=== PATIENT | male | born 1950 | race Caucasian/White ===

== ENCOUNTER 2016-12-02 16:31 | Inpatient (IN) | payer MEDICARE, BC ==
[~2016-12-02] VITALS: Ht 170.2 cm; Wt 84.8 kg
[~2016-12-02 16:31] MED LIST: ASPI-664 PO; BENA40TA41 PO; GABA-528 PO; LANT3I SC; MECL25TA2 PO; METF500T4 PO; NOVO3I SC; TERA5CAP3 PO; [UNRECOGNIZED DRUG - OTHER] TOP
[2016-12-02] MEDS ORDERED: CEFTRIAXONE 1 GM INJ IM ONE (18:00)
[2016-12-02 18:21] LABS: ADD SCAN DIFF NO
[2016-12-02 18:24] LABS: BASOPHILS % 0.5 % (0.0-2.0); EOSINOPHILS % 0.2 % (0.0-7.0); HEMATOCRIT 36.7 % (42.0-52.0); HEMOGLOBIN 12.6 g/dl (14.0-18.0); LYMPHOCYTES # 0.9 10^3/ul (0.8-2.9); MEAN CORPUSCULAR HEMOGLOBIN 32.6 pg (29.0-33.0); MEAN CORPUSCULAR HGB CONC 34.3 g/dl (32.0-37.0); MEAN CORPUSCULAR VOLUME 94.8 fl (82.0-101.0); MEAN PLATELET VOLUME 10.6 fl (7.4-10.4); MONOCYTE # 0.6 10^3/ul (0.3-0.9); MONOCYTES % 9.4 % (0.0-11.0); NEUTROPHIL # 4.7 10^3/ul (1.6-7.5); NEUTROPHILS % 75.6 % (39.0-77.0); PLATELET COUNT 180 10^3/UL (140-415); RED BLOOD COUNT 3.87 10^6/ul (4.70-6.10); RED CELL DISTRIBUTION WIDTH 12.3 % (11.5-14.5); WHITE BLOOD COUNT 6.3 10^3/ul (4.8-10.8)
[2016-12-02 18:37] LABS: ALBUMIN 4.1 g/dl (3.3-4.9); ALBUMIN/GLOBULIN RATIO 1.13; BILIRUBIN,INDIRECT 0.2 mg/dl (0-1.1); BILIRUBIN,TOTAL 0.2 mg/dl (0.2-1.3); CALCIUM 9.2 mg/dl (8.4-10.2); CREATININE 0.62 mg/dl (0.61-1.24); POTASSIUM 4.4 mmol/L (3.5-5.1); TOTAL PROTEIN 7.7 g/dl (6.1-8.1)
[2016-12-02] MEDS ORDERED: INSULIN LISPRO 100 UNIT/ML VIAL SC STA (19:13)
--- NOTE | 2016-12-02 19:28 | RADRPT ---
PROCEDURE: XR Left Foot. CLINICAL INDICATION: Fall with infection. TECHNIQUE: AP, lateral and oblique views of the left foot was obtained. The images were reviewed on a PACS workstation. COMPARISON: None. FINDINGS: There are vascular calcifications in the anterior posterior tibial arteries. There is soft tissue s welling of the foot. There is a plantar spur off of the left os calcaneus. There is no evidence of gas gangrene for osteomyelitis. There is soft tissue swelling of the foot and ankle. IMPRESSION: 1. Soft tissue swelling of the foot and ankle suspicious for a cellulitis. Other etiologies must be excluded. 2. Monckenberg vascular calcifications. 3. No radiographic evidence of gas gangrene or osteomyelitis. 4. Plantar spur of the left os calcaneus. RPTAT:AAJJ Physician Carolyn Date Time Electronically viewed and signed by Physician Carolyn on 12/02/2016 19:28 YARED/
[2016-12-02] MEDS ORDERED: SOD CHLORIDE 0.9% 1,000 ML IV ONE ×2 (19:30)
[2016-12-02] MEDS ORDERED: VANCOMYCIN 1 GM (PMX) 250 ML IVPB SCH (19:30)
[2016-12-02] MEDS ORDERED: CLINDAMYCIN 900 MG/D5W (PMX) 50 ML IVPB SCH (19:30)
--- NOTE | 2016-12-02 19:53 | ERA ---
ER Documentation Chief Complaint Date/Time DATE: 12/02/16 TIME: 19:48 Chief Complaint right toe pain s/p fall 1 week ago (TRESSA BUSTAMANTE NP) HPI 66-year-old male with history of diabetes using insulin complaining of pain in the left big toe 1 week. Patient stated that he felt a week ago, and bruised his left big toe. He is able to bear weight on the left foot. He noticed a "blister" on the bottom of his left big toe after the fall. His left foot has been red and painful since then. He went to PCP, and was given Augmentin for antibiotics. His symptom has not improved on Augmentin. CBC done 3 days ago showed elevated WBC at 13.7. He was sent here by PCP for further evaluation. Denies fever or chills. (TRESSA BUSTAMANTE NP) ROS All systems reviewed and are negative except as per history of present illness. (TRESSA BUSTAMANTE NP) Medications Home Meds Active Scripts Metformin* (Glucophage*) 500 Mg Tab, 500 MG PO BID WITH MEALS, #60 TAB Prov:RONAK ANDREA NP 11/26/14 Insulin Glargine* (Lantus*) 100 Unit/Ml Soln, 20 UNIT SC DAILY for 30 Days, EA Prov:RONAK ANDREA NP 11/26/14 Insulin Aspart* (Novolog Insulin Pen*) 100 Unit/Ml Soln, 30 UNIT SC WITH MEALS for 30 Days, EA Prov:RONAK ANDREA NP 11/26/14 Meclizine Hcl* (Antivert*) 25 Mg Tab, 25 MG PO TID Y for dizziness, #10 Prov:RONAK ANDREA NP 11/26/14 Aspirin* (Aspirin* EC) 81 Mg Tabec, 81 MG PO DAILY for 30 Days Prov:RONAK ANDREA NP 11/26/14 Reported Medications [[id number]] No Conflict Check, 0.5 TSP TOP Q6 Y for PRN 11/24/14 Gabapentin* (Gabapentin*) 800 Mg Tablet, 800 MG PO TID, TAB 11/24/14 Terazosin Hcl* (Terazosin Hcl*) 5 Mg Capsule, 5 MG PO HS, CAP 11/24/14 Benazepril Hcl* (Benazepril Hcl*) 40 Mg Tablet, 40 MG PO DAILY, TAB 11/24/14 Allergies Allergies: Coded Allergies: No Known Allergy (Unverified , 12/02/16) PMhx/Soc History of Surgery: No Anesthesia Reaction: No Hx Neurological Disorder: Yes (neuropathy = both hands and feet) Hx Respiratory Disorders: No Hx Cardiac Disorders: Yes (Htn) Hx Psychiatric Problems: No Hx Miscellaneous Medical Probl: Yes (DM, HTN, Hypokalemia) Hx Substance Use: No Hx Tobacco Use: No Smoking Status: Unknown if ever smoked (TRESSA BUSTAMANTE NP) Physical Exam Vitals Vital Signs Date Time Temp Pulse Resp B/P Pulse Ox O2 Delivery O2 Flow Rate FiO2 12/02/16 20:14 97.8 80 16 145/80 100 Room Air 12/02/16 16:57 98.0 98 20 143/65 98 (DAMION ALVAREZ DO) Physical Exam General impression: Well-developed, well-nourished. Alert, oriented, in no acute distress Head: Normocephalic, atraumatic. Eyes: PERRL, EOM normal. Sclerae are normal. Conjunctiva not injected. Neck: Supple, nontender. No lymphadenopathy. No nuchal rigidity. Respiration: Normal respiratory effort. Lungs clear to auscultate bilaterally. No wheezes, rales or rhonchi. Cardiovascular: Regular rate and rhythm. No murmurs or extra heart sounds. Abdomen: Abdomen normal to inspection. Nontender. No masses or organomegaly. Bowel sounds normal. Back: Normal to inspection. No midline spine tenderness. No CVA tenderness. Extremities: Left foot erythematous and warm to touch, tender. The erythema is especially pronounced over the left big toe. There is a open wound noted at the ventral aspect the left big toe. Decreased range of motion of the left big toe. Neuro: Mental status normal, speech normal. SOLUTIONS DEVELOPER grossly intact. Decreased sensation noted on the left foot. Skin: Normal turgor. No rash or lesions. Psych: Normal mood and affect. (TRESSA BUSTAMANTE NP) Result Diagram: 12/02/16 17512/02/161752 Results 24 hrs Laboratory Tests Test 12/02/16 17:53 12/02/16 17:55 White Blood Count 6.310^3/ul Red Blood Count 3.8710^6/ul Hemoglobin 12.6g/dl Hematocrit 36.7% Mean Corpuscular Volume 94.8fl Mean Corpuscular Hemoglobin 32.6pg Mean Corpuscular Hemoglobin Concent 34.3g/dl Red Cell Distribution Width 12.3% Platelet Count 65274^3/UL Mean Platelet Volume 10.6fl Neutrophils % 75.6% Lymphocytes % 14.0% Monocytes % 9.4% Eosinophils % 0.2% Basophils % 0.5% Nucleated Red Blood Cells % 0.0/100WBC Neutrophils # 4.710^3/ul Lymphocytes # 0.910^3/ul Monocytes # 0.610^3/ul Eosinophils # 0.010^3/ul Basophils # 0.010^3/ul Nucleated Red Blood Cells # 0.010^3/ul Sodium Level 131mmol/L Potassium Level 4.4mmol/L Chloride Level 98mmol/L Carbon Dioxide Level 27mmol/L Anion Gap 10 Blood Urea Nitrogen 13mg/dl Creatinine 0.62mg/dl Glucose Level 436mg/dl Calcium Level 9.2mg/dl Total Bilirubin 0.2mg/dl Direct Bilirubin 0.00mg/dl Indirect Bilirubin 0.2mg/dl Aspartate Amino Transf (AST/SGOT) 17IU/L Alanine Aminotransferase (ALT/SGPT) 22IU/L Alkaline Phosphatase 90IU/L Total Protein 7.7g/dl Albumin 4.1g/dl Globulin 3.60g/dl Albumin/Globulin Ratio 1.13 Triglycerides Level 103mg/dl Cholesterol Level 157mg/dl LDL Cholesterol, Calculated 80mg/dl HDL Cholesterol 56mg/dl Cholesterol/HDL Ratio 2.8RATIO Current Medications Medications (Trade) Dose Ordered Sig/Devon Route PRN Reason Start Time Stop Time Status Last Admin Dose Admin Ceftriaxone Sodium 1 gm 1 gm ONCE ONCE IM 12/02/16 18:00 12/02/16 18:01 DC 12/02/16 17:49 Vancomycin HCl 250 ml @ 125 mls/hr ONCE IVPB 12/02/16 19:30 12/02/16 21:29 DC 12/02/16 20:33 Clindamycin HCl/ Dextrose (Cleocin 900 Mg/ D5W (Pmx)) 50 ml @ 50 mls/hr ONCE IVPB 12/02/16 19:30 12/02/16 20:29 DC 12/02/16 19:44 Insulin Human Lispro 6 unit 6 unit ONCE STAT SC 12/02/16 19:13 12/02/16 19:19 DC 12/02/16 19:40 Sodium Chloride 1,000 ml @ 1,000 mls/hr Q1H ONCE IV 12/02/16 19:30 12/02/16 20:29 DC 12/02/16 19:35 Sodium Chloride (NS) 1,000 ml @ 1,000 mls/hr Q1H ONCE IV 12/02/16 19:30 12/02/16 20:29 DC 12/02/16 19:35 Ondansetron HCl (Zofran Inj) 4 mg BRIDGE ORDER PRN IV NAUSEA AND/OR VOMITING 12/02/16 21:00 12/02/16 22:33 DC Acetaminophen (Tylenol Tab) 650 mg ER BRIDGE PRN PO MILD PAIN/FEVER 12/02/16 21:00 12/02/16 22:33 DC (DAMION ALVAERZ DO) Results 24 hrs PROCEDURE: XR Left Foot. CLINICAL INDICATION: Fall with infection. TECHNIQUE: AP, lateral and oblique views of the left foot was obtained. The images were reviewed on a PACS workstation. COMPARISON: None. FINDINGS: There are vascular calcifications in the anterior posterior tibial arteries. There is soft tissue swelling of the foot. There is a plantar spur off of the left os calcaneus. There is no evidence of gas gangrene for osteomyelitis. There is soft tissue swelling of the foot and ankle. IMPRESSION: 1. Soft tissue swelling of the foot and ankle suspicious for a cellulitis. Other etiologies must be excluded. 2. Monckenberg vascular calcifications. 3. No radiographic evidence of gas gangrene or osteomyelitis. 4. Plantar spur of the left os calcaneus. RPTAT:AAJJ Physician Carolyn Date Time Electronically viewed and signed by Physician Carolyn on 12/02/2016 19:28 JM/ CC: TRESSA BUSTAMANTE NP (TRESSA BUSTAMANTE NP) Procedures/MDM Pleasant 66-year-old male presented to ED with left foot pain 1 week. His exam findings are consistent with cellulitis of the left foot. He was given inappropriate antibiotics by his PCP. He had elevated white count of 13.7 3 days ago. Repeat CBC today showed normal white count of 6.8. His blood sugar is 465. 2 L of normal saline bolus, and 6 units of Humalog subcu given to the patient in the ED. Patient does not have any signs of necrotizing fasciitis. X -ray of the left foot was obtained, no sign off to myelitis on x-ray as read by radiologist. I feel patient can benefit from inpatient IV antibiotic therapy. My supervising physician Dr. Alvarez also examined the patient, and agrees with the plan. Patient is given vancomycin 1 g IV piggyback and clindamycin 900 mg IV piggyback while waiting for admission. (TRESSA BUSTAMANTE NP) I evaluated this patient along with the advance care provider. Does have a great toe diabetic ulcer with erythema and calor extending to the ankle joint. He is failed outpatient treatment noted prevent limb loss believe he needs IV antibiotics note stopped infection before to convince the bone. I spoke with Dr. Dumont wash will be admitting the patient to the medical surgical floor for further treatment.. (DAMION ALVAREZ DO) Departure Diagnosis: Primary Impression: Cellulitis of left foot Additional Impressions: Hyperglycemia Failure of outpatient treatment Condition: Stable TRESSA BUSTAMANTE NP Dec 02, 2016 19:53 DAMION ALVAREZ DO Dec 03, 2016 00:03
[2016-12-02] MEDS ORDERED: ACETAMINOPHEN 325 MG TAB PO PRN (21:00)
[2016-12-02] MEDS ORDERED: ONDANSETRON 4 MG INJ IV PRN (21:00)
[2016-12-02 21:14] VITALS: TEMP 97.8
[2016-12-02 21:52] VITALS: BP_SYST 136; BP_DIAS 67; BP_DIAS 68; PULSE 87; RESP 18; RESP 19
[2016-12-02 21:54] VITALS: Ht 170.2 cm; Wt 84.8 kg
[2016-12-02] MEDS ORDERED: VANCOMYCIN IV PER PHARMACY XX SCH (22:30)
[2016-12-02 22:41] LABS: CHOL/HDL RATIO 2.8 RATIO
[2016-12-02] MEDS ORDERED: GLUCOSE GEL 15 GRAM TUBE PO PRN ×2 (23:00)
[2016-12-02] MEDS ORDERED: GLUCOSE GEL 15 GRAM TUBE BUCCAL PRN (23:00)
[2016-12-02] MEDS ORDERED: GLUCAGON 1 MG INJ IM PRN (23:00)
[2016-12-02] MEDS ORDERED: hydrALAzine 20 MG INJ IV PRN (23:30)
[2016-12-02] MEDS ORDERED: ASPIRIN (EC) 81 MG TAB PO ONE (23:30)
[2016-12-02] MEDS ORDERED: INSULIN GLARGINE [LANtus] 3 ML PEN SC ONE (23:30)
[2016-12-02] MEDS ORDERED: GABAPENTIN 300 MG CAP PO ONE (23:30)
[2016-12-02] MEDS ORDERED: CEFTRIAXONE 1 GM/50 ML (PMX) 50 ML IVPB SCH (23:30)
[2016-12-02] MEDS ORDERED: PANTOPRAZOLE (EC) 40 MG TAB PO ONE (23:30)
[2016-12-02] MEDS ORDERED: TERAZOSIN 5 MG CAP PO ONE (23:30)
--- NOTE | 2016-12-02 23:30 | HP ---
Date/Time of Note Date/Time of Note DATE: 12/02/16 TIME: 22:52 Assessment/Plan VTE Prophylaxis VTE Prophylaxis Intervention: LMWH Assessment/Plan Assessment/Plan -Diabetic foot ulcer left foot -Cellulitis of left foot -Admit to [facility] floor -[facility] per pharmacy -C/S of wound drainage left foot -We will get infectious disease consult -A.m. labs, hemoglobin A1c, magnesium, phosphorous -Doppler ultrasound of the left foot -Elevate left foot all times -Foot cradle placement -History of [id number] -1800 suri low sodium low cholesterol diet -asthma educator consult -Dietary consult -History of hypertension -Resume benazepril HPI/ROS Admit Date/Time Admit Date/Time Dec 02, 2016 at 21:01 Hx of Present Illness left toe pain s/p fall 1 week ago HPI This is a 66-year-old male with history of insulin-dependent diabetes was admitted in the [facility] with complain of pain in the left big toe 1 week. Per patient he fell almost week ago, and bruised his left big toe. He also stated that he did not feel any pain right away . And he was still able to bear weight on the left foot to stand up and walk. Then he started noticing a "blister" on the bottom of his left big toe after the fall. He started feeling pain in his left foot ever since then. Patient was seen by his primary provider and was given Augmentin for his left foot infection and the outcome was not successful. Patient was sent to the [facility] when after having CBC- WBCs were elevated to 13.7. He was sent here by PCP for further evaluation. Denies fever or chills. During assessment patient denies any chest pain, shortness of breath, fever, chills, dizziness, palpitations, abdominal pain, nausea, vomiting, focal weakness. Denies any pain on left foot. Patient is admitted under Dr. Heredia for further evaluation and treatment ROS All systems reviewed and are negative except as per history of present illness. Medications Home Meds Active Scripts Metformin* (Glucophage*) 500 Mg Tab, 500 MG PO BID WITH MEALS, #60 TAB Prov:RONAK ANDREA AUTOMATIC PRINT DEVELOPER 11/26/14 Insulin Glargine* (Lantus*) 100 Unit/Ml Soln, 20 UNIT SC DAILY for 30 Days, EA Prov:RONAK ANDREA Milagros AUTOMATIC PRINT DEVELOPER 11/26/14 Insulin Aspart* (Novolog Insulin Pen*) 100 Unit/Ml Soln, 30 UNIT SC WITH MEALS for 30 Days, EA Prov:ZULLYRONAK Milagros AUTOMATIC PRINT DEVELOPER 11/26/14 Meclizine Hcl* (Antivert*) 25 Mg Tab, 25 MG PO TID Y for dizziness, #10 Prov:RONAK ANDREA AUTOMATIC PRINT DEVELOPER 11/26/14 Aspirin* (Aspirin* EC) 81 Mg Tabec, 81 MG PO DAILY for 30 Days Prov:RONAK ANDREA Milagros AUTOMATIC PRINT DEVELOPER 11/26/14 Reported Medications [[id number]] No Conflict Check, 0.5 TSP TOP Q6 Y for PRN 11/24/14 Gabapentin* (Gabapentin*) 800 Mg Tablet, 800 MG PO TID, TAB 11/24/14 Terazosin Hcl* (Terazosin Hcl*) 5 Mg Capsule, 5 MG PO HS, CAP 11/24/14 Benazepril Hcl* (Benazepril Hcl*) 40 Mg Tablet, 40 MG PO DAILY, TAB 11/24/14 Allergies Allergies: Coded Allergies: No Known Allergy (Unverified , 12/02/16) ROS Constitutional: no complaints Eyes: no complaints ENT: no complaints Respiratory: no complaints Cardiovascular: no complaints Gastrointestinal: no complaints Genitourinary: no complaints Musculoskeletal: bone/joint pain Skin: erythema Endocrine: other Lymphatic: no complaints Psychological: nl mood/affect Immunologic: no complaints PMH/Family/Social Past Medical History PMhx/Soc History of Surgery: No Anesthesia Reaction: No Hx Neurological Disorder: Yes (neuropathy = both hands and feet) Hx Respiratory Disorders: No Hx Cardiac Disorders: Yes (Htn) Hx Psychiatric Problems: No Hx Miscellaneous Medical Probl: Yes (DM, HTN, Hypokalemia) Hx Substance Use: No Hx Tobacco Use: No Smoking Status: Unknown if ever smoked Family History Significant Family History: heart disease, diabetes Social History Smoking Status: Former smoker Exam/Review of Systems Vital Signs Vitals Vital Signs Date Time Temp Pulse Resp B/P Pulse Ox O2 Delivery O2 Flow Rate FiO2 12/02/16 21:14 97.8 79 16 124/46 100 Room Air Exam Constitutional: alert, oriented, well developed Psych: no complaints Head: normocephalic Eyes: EOMI ENMT: nl external ears & nose Neck: non-tender Respiratory: clear to auscultation Cardiovascular: nl pulses Gastrointestinal: non-tender, soft Musculoskeletal: swelling Extremities: edema Neurological: nl mental status, nl speech Skin: other Lymph: nontender Labs Result Diagram: 12/02/16175212/02/161752 Medications Medications Current Medications Diagnostic Test (Pha) (Accu-Chek) 1 ea 02 XX ; Start 12/03/16 at 02:00 Ondansetron HCl (Zofran Inj) 4 mg Q6H PRN IV NAUSEA AND/OR VOMITING; Start at 22:30 Miscellaneous Information 1 ea NOTE XX ; Start 12/02/16 at 23:00 Glucose (Glutose) 15 gm Q15M PRN PO DECREASED GLUCOSE; Start 12/02/16 at 23:00 Glucose (Glutose) 22.5 gm Q15M PRN PO DECREASED GLUCOSE; Start 12/02/16 at 23: 00 Dextrose (D50w Syringe) 25 ml Q15M PRN IV DECREASED GLUCOSE; Start 12/02/16 at 23:00 Dextrose (D50w Syringe) 50 ml Q15M PRN IV DECREASED GLUCOSE; Start 12/02/16 at 23:00 Glucagon (Glucagen) 1 mg Q15M PRN IM DECREASED GLUCOSE; Start 12/02/16 at 23:00 Glucose 15 gm 15 gm Q15M PRN BUCCAL DECREASED GLUCOSE; Start 12/02/16 at 23:00 Vancomycin HCl/ Sodium Chloride (Vancocin/NS) 250 ml @ 83.333 mls/ hr Q12H IVPB ; Start 12/03/16 at 04:00 Aspirin (Halfprin) 81 mg DAILY PO ; Start 12/03/16 at 09:00 Benazepril HCl (Lotensin) 40 mg DAILY PO ; Start 12/03/16 at 09:00 Gabapentin (Neurontin) 800 mg TID PO ; Start 12/03/16 at 09:00 Insulin Glargine (Lantus) 20 unit DAILY SC ; Start 12/03/16 at 09:00 Meclizine HCl (Antivert) 25 mg TID PRN PO dizziness; Start 12/02/16 at 23:00 Terazosin HCl (Hytrin) 5 mg HS PO ; Start 12/03/16 at 21:00 YULIANA SIMMONS Dec 02, 2016 23:04
--- NOTE | 2016-12-03 00:43 | RADRPT ---
PROCEDURE: ULTRASOUND LEFT LOWER EXTREMITY VENOUS CLINICAL INDICATION: 66-year-old male with left lower extremity pain. TECHNIQUE: Multiple sonographic images of the left lower extremity deep venous system was obtained utilizing grayscale, color-flow, compressive sonography and doppler imaging with augmentation. The images were reviewed on a PACS workstation. COMPARISON: None. FINDINGS: There is normal compressibility and flow within the left common femoral, deep femoral, superficial f emoral, popliteal, posterior tibial and peroneal veins. IMPRESSION: No sonographic evidence for left lower extremity deep venous thrombosis. .Marlon Mena MD, MD Date Time Electronically viewed and signed by .Marlon Mena MD, MD on 12/03/2016 00:43 .Nayely/
[2016-12-03] MEDS: ACCU-CHEK XX SCH (01:13)
[2016-12-03] MEDS: VANCOMYCIN 1.25 GM in SOD CHLORIDE 0.9% 250 ML IVPB SCH ×2 (04:04→15:54)
[2016-12-03] MEDS: PANTOPRAZOLE (EC) 40 MG TAB PO SCH (06:31)
[2016-12-03 06:47] LABS: ADD SCAN DIFF NO
[2016-12-03 06:59] LABS: BASOPHILS % 0.4 % (0.0-2.0); EOSINOPHILS % 0.6 % (0.0-7.0); HEMATOCRIT 32.5 % (42.0-52.0); HEMOGLOBIN 10.6 g/dl (14.0-18.0); LYMPHOCYTES # 1.2 10^3/ul (0.8-2.9); LYMPHOCYTES % 24.8 % (15.0-51.0); MEAN CORPUSCULAR HEMOGLOBIN 31.5 pg (29.0-33.0); MEAN CORPUSCULAR HGB CONC 32.6 g/dl (32.0-37.0); MEAN CORPUSCULAR VOLUME 96.4 fl (82.0-101.0); MEAN PLATELET VOLUME 10.9 fl (7.4-10.4); MONOCYTE # 0.5 10^3/ul (0.3-0.9); MONOCYTES % 9.9 % (0.0-11.0); NEUTROPHIL # 3.1 10^3/ul (1.6-7.5); NEUTROPHILS % 63.9 % (39.0-77.0); PLATELET COUNT 141 10^3/UL (140-415); RED BLOOD COUNT 3.37 10^6/ul (4.70-6.10); RED CELL DISTRIBUTION WIDTH 12.5 % (11.5-14.5); WHITE BLOOD COUNT 4.9 10^3/ul (4.8-10.8)
[2016-12-03] MEDS ORDERED: INSULIN ASPART [NOVOLOG] 3 ML PEN SC SCH (07:35)
[2016-12-03 07:38] LABS: IRON 49 ug/dl (35-150)
[2016-12-03 07:47] LABS: TOTAL IRON BINDING CAPACITY 214 ug/dl (241-421)
[2016-12-03 07:52] LABS: CALCIUM 8.5 mg/dl (8.4-10.2); CREATININE 0.58 mg/dl (0.61-1.24); PHOSPHORUS 3.8 mg/dl (2.5-4.9)
[2016-12-03] MEDS: GABAPENTIN 400 MG CAP PO SCH ×3 (08:37→21:34)
[2016-12-03] MEDS: metFORMIN 500 MG TAB PO SCH ×3 (08:37→18:07)
[2016-12-03] MEDS: ASPIRIN (EC) 81 MG TAB PO SCH (08:38)
[2016-12-03] MEDS: DOCUSATE SODIUM 100 MG CAP PO SCH ×3 (08:38→21:34)
[2016-12-03] MEDS: ENOXAPARIN 30 MG/0.3 ML SYG SC SCH (08:42)
[2016-12-03 08:44] VITALS: BP 124/58; RESP 17
[2016-12-03] MEDS: INSULIN ASPART [NOVOLOG] 3 ML PEN SC SCH ×6 (08:50→22:22)
[2016-12-03] MEDS ORDERED: BENAZEPRIL 40 MG TAB PO SCH (09:00)
[2016-12-03] MEDS ORDERED: INSULIN GLARGINE [LANtus] 3 ML PEN SC SCH (09:00)
--- NOTE | 2016-12-03 12:54 | PN ---
Date/Time of Note Date/Time of Note DATE: 12/03/16 TIME: 12:36 Assessment/Plan VTE Prophylaxis VTE Prophylaxis Intervention: SCD's Lines/Catheters IV [facility] Saline Lock Urinary Cath still in place: No Assessment/Plan Chief Complaint/Hosp Course Assessment/Plan - Diabetic foot ulcer of the left foot, Dr Lin is asked to see pt is podiatry consultation. - Cellulitis of left foot, continue antibiotics, Dr. Wilson is asked to see patient in infection disease consultation. - IDDM, continue metformin and Lantus and pre-meal NovoLog. - Aortic stenosis - Diastolic dysfunction congestive heart failure with preserved ejection fraction of 60%. - Hypertension, continue benazepril. Further recommendations based on clinical course. Plan of care discussed with Dr. Heredia. Problems: Subjective 24 Hr Interval Summary Free Text/Dictation Patient's complains of left lower extremity ulcer pain, denies any chest pain, denies shortness of breath. Exam/Review of Systems Vital Signs Vitals Vital Signs Date Time Temp Pulse Resp B/P Pulse Ox O2 Delivery O2 Flow Rate FiO2 12/03/16 08:44 98.1 83 17 124/58 96 12/02/16 21:52 Room Air Intake and Output 12/02/16 12/02/16 12/03/16 15:00 23:00 07:00 Intake Total 250 ml 450 ml Balance 250 ml 450 ml Exam Constitutional: alert, oriented Psych: no complaints Head: atraumatic, normocephalic Eyes: nl conjunctiva ENMT: nl external ears & nose Neck: non-tender, supple Respiratory: clear to auscultation, normal air movement Cardiovascular: nl pulses, regular rate and rhythm, systolic murmur Gastrointestinal: non-tender, soft Genitourinary - Male: nl penis Musculoskeletal: nl extremities to inspection Extremities: normal pulses Neurological: MACHINE SHOP SPECIALIST II-XII intact Skin: nl turgor Results Result Diagram: 12/03/16 0515 12/03/16 0515 Results 24 hrs Laboratory Tests Test 12/02/16 17:53 12/02/16 17:55 12/02/16 22:26 12/03/16 00:30 White Blood Count 6.3 Red Blood Count 3.87 L Hemoglobin 12.6 L Hematocrit 36.7 L Mean Corpuscular Volume 94.8 Mean Corpuscular Hemoglobin 32.6 Mean Corpuscular Hemoglobin Concent 34.3 Red Cell Distribution Width 12.3 Platelet Count 180 Mean Platelet Volume 10.6 H Neutrophils % 75.6 Lymphocytes % 14.0 L Monocytes % 9.4 Eosinophils % 0.2 Basophils % 0.5 Nucleated Red Blood Cells % 0.0 Neutrophils # 4.7 Lymphocytes # 0.9 Monocytes # 0.6 Eosinophils # 0.0 Basophils # 0.0 Nucleated Red Blood Cells # 0.0 Sodium Level 131 L Potassium Level 4.4 Chloride Level 98 Carbon Dioxide Level 27 Anion Gap 10 Blood Urea Nitrogen 13 Creatinine 0.62 Glucose Level 436 *H Calcium Level 9.2 Total Bilirubin 0.2 Direct Bilirubin 0.00 Indirect Bilirubin 0.2 Aspartate Amino Transf (AST/SGOT) 17 Alanine Aminotransferase (ALT/SGPT) 22 Alkaline Phosphatase 90 Total Protein 7.7 Albumin 4.1 Globulin 3.60 H Albumin/Globulin Ratio 1.13 Triglycerides Level 103 Cholesterol Level 157 LDL Cholesterol, Calculated 80 HDL Cholesterol 56 Cholesterol/HDL Ratio 2.8 Bedside Glucose 218 221 H Test 12/03/16 05:15 12/03/16 08:08 12/03/16 10:45 12/03/16 11:58 White Blood Count 4.9 # Red Blood Count 3.37 L Hemoglobin 10.6 L Hematocrit 32.5 L Mean Corpuscular Volume 96.4 Mean Corpuscular Hemoglobin 31.5 Mean Corpuscular Hemoglobin Concent 32.6 Red Cell Distribution Width 12.5 Platelet Count 141 # Mean Platelet Volume 10.9 H Neutrophils % 63.9 Lymphocytes % 24.8 Monocytes % 9.9 Eosinophils % 0.6 Basophils % 0.4 Nucleated Red Blood Cells % 0.0 Neutrophils # 3.1 Lymphocytes # 1.2 Monocytes # 0.5 Eosinophils # 0.0 Basophils # 0.0 Nucleated Red Blood Cells # 0.0 Sodium Level 136 Potassium Level 4.0 Chloride Level 106 Carbon Dioxide Level 26 Anion Gap 8 Blood Urea Nitrogen 9 Creatinine 0.58 L Glucose Level 188 # Hemoglobin A1c 8.7 H Calcium Level 8.5 Phosphorus Level 3.8 Magnesium Level 2.0 Iron Level 49 Total Iron Binding Capacity 214 L Percent Iron Saturation 23 Bedside Glucose 176 194 161 Medications Medications Current Medications Diagnostic Test (Pha) (Accu-Chek) 1 ea 02 XX ; Start 12/03/16 at 02:00 Ondansetron HCl (Zofran Inj) 4 mg Q6H PRN IV NAUSEA AND/OR VOMITING; Start at 22:30 Miscellaneous Information 1 ea NOTE XX ; Start 12/02/16 at 23:00 Glucose (Glutose) 15 gm Q15M PRN PO DECREASED GLUCOSE; Start 12/02/16 at 23:00 Glucose (Glutose) 22.5 gm Q15M PRN PO DECREASED GLUCOSE; Start 12/02/16 at 23: 00 Dextrose (D50w Syringe) 25 ml Q15M PRN IV DECREASED GLUCOSE; Start 12/02/16 at 23:00 Dextrose (D50w Syringe) 50 ml Q15M PRN IV DECREASED GLUCOSE; Start 12/02/16 at 23:00 Glucagon (Glucagen) 1 mg Q15M PRN IM DECREASED GLUCOSE; Start 12/02/16 at 23:00 Glucose 15 gm 15 gm Q15M PRN BUCCAL DECREASED GLUCOSE; Start 12/02/16 at 23:00 Vancomycin HCl/ Sodium Chloride (Vancocin/NS) 250 ml @ 83.333 mls/ hr Q12H IVPB Last administered on 12/03/16 04:04; Admin Dose 83.333 MLS/HR; Start at 04:00 Aspirin (Halfprin) 81 mg DAILY PO Last administered on 12/03/16 08:38; Admin Dose 81 MG; Start 12/03/16 at 09:00 Benazepril HCl (Lotensin) 40 mg DAILY PO Last administered on 12/03/16 08:38; Admin Dose 40 MG; Start 12/03/16 at 09:00 Gabapentin (Neurontin) 800 mg TID PO Last administered on 12/03/16 12:13; Admin Dose 800 MG; Start 12/03/16 at 09:00 Meclizine HCl (Antivert) 25 mg TID PRN PO dizziness; Start 12/02/16 at 23:00 Terazosin HCl (Hytrin) 5 mg HS PO ; Start 12/03/16 at 21:00 Enoxaparin Sodium (Lovenox) 30 mg DAILY SC Last administered on 12/03/16 08:42 ; Admin Dose 30 MG; Start 12/03/16 at 09:00 Insulin Glargine (Lantus) 20 unit DAILY SC ; Start 12/03/16 at 20:00 Acetaminophen/ Hydrocodone Bitart ([place] (5/325)) 1 tab Q6H PRN PO PAIN LEVEL 4 -7; Start 12/02/16 at 23:30 Acetaminophen (Tylenol Tab) 650 mg Q6H PRN PO PAIN AND OR ELEVATED TEMP; Start 12/02/16 at 23:30 Docusate Sodium 100 mg 100 mg BID PO ; Start 12/03/16 at 09:00 Ceftriaxone Sodium (Rocephin) 50 ml @ 100 mls/hr Q24H IVPB Last administered on 12/03/16 00:21; Admin Dose 100 MLS/HR; Start 12/02/16 at 23:30 Hydralazine HCl (Apresoline) 10 mg Q6H PRN IV ELEVATED SYSTOLIC BP; Start 12/02 at 23:30 Pantoprazole (Protonix Tab) 40 mg DAILY@06 PO Last administered on 12/03/16 06 :31; Admin Dose 40 MG; Start 12/03/16 at 06:00 Zolpidem Tartrate (Ambien) 5 mg HS PRN PO INSOMNIA; Start 12/02/16 at 23:30 KIMBERLY NOYOLA Dec 03, 2016 12:46
[2016-12-03 13:10] VITALS: BP 110/68; PULSE 71
[2016-12-03 16:03] VITALS: BP 128/58; PULSE 70
--- NOTE | 2016-12-03 19:03 | CONS ---
Date/Time of Note Date/Time of Note DATE: 12/03/16 TIME: 19:02 Assessment/Plan Assessment/Plan Chief Complaint/Hosp Course patient seen and examined. ordered entered. full note to follow consider mri Problems: Consultation Date/Type/Reason Admit Date/Time Dec 02, 2016 at 21:01 Initial Consult Date Exam/Review of Systems Vital Signs Vitals Vital Signs Date Time Temp Pulse Resp B/P Pulse Ox O2 Delivery O2 Flow Rate FiO2 12/03/16 16:03 70 128/58 12/03/16 08:44 98.1 17 96 12/02/16 21:52 Room Air Intake and Output 12/02/16 12/02/16 12/03/16 15:00 23:00 07:00 Intake Total 250 ml 450 ml Balance 250 ml 450 ml Results Result Diagram: 12/03/16 0515 12/03/16 0515 Results 24 hrs Laboratory Tests Test 12/02/16 22:26 12/03/16 00:30 12/03/16 05:15 12/03/16 08:08 Bedside Glucose 218 221 H 176 White Blood Count 4.9 # Red Blood Count 3.37 L Hemoglobin 10.6 L Hematocrit 32.5 L Mean Corpuscular Volume 96.4 Mean Corpuscular Hemoglobin 31.5 Mean Corpuscular Hemoglobin Concent 32.6 Red Cell Distribution Width 12.5 Platelet Count 141 # Mean Platelet Volume 10.9 H Neutrophils % 63.9 Lymphocytes % 24.8 Monocytes % 9.9 Eosinophils % 0.6 Basophils % 0.4 Nucleated Red Blood Cells % 0.0 Neutrophils # 3.1 Lymphocytes # 1.2 Monocytes # 0.5 Eosinophils # 0.0 Basophils # 0.0 Nucleated Red Blood Cells # 0.0 Sodium Level 136 Potassium Level 4.0 Chloride Level 106 Carbon Dioxide Level 26 Anion Gap 8 Blood Urea Nitrogen 9 Creatinine 0.58 L Glucose Level 188 # Hemoglobin A1c 8.7 H Calcium Level 8.5 Phosphorus Level 3.8 Magnesium Level 2.0 Iron Level 49 Total Iron Binding Capacity 214 L Percent Iron Saturation 23 Test 12/03/16 10:45 12/03/16 11:58 12/03/16 12:42 12/03/16 16:17 Bedside Glucose 194 161 154 86 Test 12/03/16 17:16 12/03/16 17:41 Bedside Glucose 194 216 Medications Medications Current Medications Diagnostic Test (Pha) (Accu-Chek) 1 ea 02 XX ; Start 12/03/16 at 02:00 Ondansetron HCl (Zofran Inj) 4 mg Q6H PRN IV NAUSEA AND/OR VOMITING; Start at 22:30 Miscellaneous Information 1 ea NOTE XX ; Start 12/02/16 at 23:00 Glucose (Glutose) 15 gm Q15M PRN PO DECREASED GLUCOSE; Start 12/02/16 at 23:00 Glucose (Glutose) 22.5 gm Q15M PRN PO DECREASED GLUCOSE; Start 12/02/16 at 23: 00 Dextrose (D50w Syringe) 25 ml Q15M PRN IV DECREASED GLUCOSE; Start 12/02/16 at 23:00 Dextrose (D50w Syringe) 50 ml Q15M PRN IV DECREASED GLUCOSE; Start 12/02/16 at 23:00 Glucagon (Glucagen) 1 mg Q15M PRN IM DECREASED GLUCOSE; Start 12/02/16 at 23:00 Glucose 15 gm 15 gm Q15M PRN BUCCAL DECREASED GLUCOSE; Start 12/02/16 at 23:00 Vancomycin HCl/ Sodium Chloride (Vancocin/NS) 250 ml @ 83.333 mls/ hr Q12H IVPB Last administered on 12/03/16 15:54; Admin Dose 83.333 MLS/HR; Start at 04:00 Aspirin (Halfprin) 81 mg DAILY PO Last administered on 12/03/16 08:38; Admin Dose 81 MG; Start 12/03/16 at 09:00 Gabapentin (Neurontin) 800 mg TID PO Last administered on 12/03/16 12:13; Admin Dose 800 MG; Start 12/03/16 at 09:00 Meclizine HCl (Antivert) 25 mg TID PRN PO dizziness; Start 12/02/16 at 23:00 Terazosin HCl (Hytrin) 5 mg HS PO ; Start 12/03/16 at 21:00 Enoxaparin Sodium (Lovenox) 30 mg DAILY SC Last administered on 12/03/16 08:42 ; Admin Dose 30 MG; Start 12/03/16 at 09:00 Insulin Glargine (Lantus) 20 unit DAILY SC ; Start 12/03/16 at 20:00 Acetaminophen/ Hydrocodone Bitart ([place] (5/325)) 1 tab Q6H PRN PO PAIN LEVEL 4 -7; Start 12/02/16 at 23:30 Acetaminophen (Tylenol Tab) 650 mg Q6H PRN PO PAIN AND OR ELEVATED TEMP; Start 12/02/16 at 23:30 Docusate Sodium 100 mg 100 mg BID PO ; Start 12/03/16 at 09:00 Ceftriaxone Sodium (Rocephin) 50 ml @ 100 mls/hr Q24H IVPB Last administered on 12/03/16 00:21; Admin Dose 100 MLS/HR; Start 12/02/16 at 23:30 Hydralazine HCl (Apresoline) 10 mg Q6H PRN IV ELEVATED SYSTOLIC BP; Start 12/02 at 23:30 Pantoprazole (Protonix Tab) 40 mg DAILY@06 PO Last administered on 12/03/16 06 :31; Admin Dose 40 MG; Start 12/03/16 at 06:00 Zolpidem Tartrate (Ambien) 5 mg HS PRN PO INSOMNIA; Start 12/02/16 at 23:30 Miscellaneous Information (*Rx Drug Level Order Reminder*) VANCOMYCIN TROUGH LEVEL... ONCE ONCE XX ; Start 12/04/16 at 03:00; Stop 12/04/16 at 03:01 Benazepril HCl (Lotensin) 10 mg DAILY PO ; Start 12/04/16 at 09:00 NIKHIL RAM MD Dec 03, 2016 19:02
[2016-12-03] MEDS: TERAZOSIN 5 MG CAP PO SCH (21:00)
[2016-12-03 21:25] VITALS: BP 107/51; RESP 18
[2016-12-03] MEDS: PIPER-TAZO 3.375 GM IV (PMX) 100 ML IVPB SCH (21:34)
[2016-12-03] MEDS: INSULIN GLARGINE [LANtus] 3 ML PEN SC SCH (22:22)
[2016-12-04] MEDS: PIPER-TAZO 3.375 GM IV (PMX) 100 ML IVPB SCH ×6 (00:53→20:51)
[2016-12-04] MEDS: ACCU-CHEK XX SCH (02:00)
[2016-12-04] MEDS: VANCOMYCIN 1.25 GM in SOD CHLORIDE 0.9% 250 ML IVPB SCH ×2 (05:02→15:47)
[2016-12-04] MEDS: PANTOPRAZOLE (EC) 40 MG TAB PO SCH (06:04)
[2016-12-04 06:09] LABS: ADD SCAN DIFF NO
[2016-12-04 06:30] LABS: BASOPHILS % 0.3 % (0.0-2.0); EOSINOPHILS % 0.5 % (0.0-7.0); HEMATOCRIT 32.1 % (42.0-52.0); HEMOGLOBIN 10.2 g/dl (14.0-18.0); LYMPHOCYTES # 1.4 10^3/ul (0.8-2.9); LYMPHOCYTES % 21.6 % (15.0-51.0); MEAN CORPUSCULAR HEMOGLOBIN 31.3 pg (29.0-33.0); MEAN CORPUSCULAR HGB CONC 31.8 g/dl (32.0-37.0); MEAN CORPUSCULAR VOLUME 98.5 fl (82.0-101.0); MEAN PLATELET VOLUME 11.3 fl (7.4-10.4); MONOCYTE # 0.6 10^3/ul (0.3-0.9); MONOCYTES % 8.9 % (0.0-11.0); NEUTROPHIL # 4.5 10^3/ul (1.6-7.5); NEUTROPHILS % 68.1 % (39.0-77.0); PLATELET COUNT 163 10^3/UL (140-415); RED BLOOD COUNT 3.26 10^6/ul (4.70-6.10); RED CELL DISTRIBUTION WIDTH 12.6 % (11.5-14.5); WHITE BLOOD COUNT 6.6 10^3/ul (4.8-10.8)
[2016-12-04 06:31] LABS: POTASSIUM 3.8 mmol/L (3.5-5.1)
[2016-12-04 06:34] LABS: CREATININE 0.91 mg/dl (0.61-1.24)
[2016-12-04 06:35] LABS: CALCIUM 8.8 mg/dl (8.4-10.2)
[2016-12-04 07:40] VITALS: BP 123/58; RESP 16
--- NOTE | 2016-12-04 08:24 | CONS ---
Date/Time of Note Date/Time of Note DATE: 12/04/16 TIME: 08:21 Assessment/Plan Assessment/Plan Chief Complaint/Hosp Course 1. DM foot infection 2. DM 3. failed Augmentin R: consider mri hiv screen vanco/zosyn podiatry eval esr procalc mrsa nasal screen bcxs Problems: Consultation Date/Type/Reason Admit Date/Time Dec 02, 2016 at 21:01 Date of Consultation: Dec 03, 2016 Reason for Consultation dm foot infection Hx of Present Illness 66 yo male with hx with pmh of DM with worsening Left first toe swelling, erythema and pain over last week. He has had increasing difficulty ambulating. He failed to improve with Augmentin. He was admitted and started on Vanco denies all except pain left first toe Eyes: no complaints ENT: no complaints Respiratory: no complaints Cardiovascular: no complaints Gastrointestinal: no complaints Genitourinary: no complaints Musculoskeletal: bone/joint pain Skin: erythema Lymphatic: no complaints Psychological: no complaints Immunologic: no complaints Social History Smoking Status: Former smoker Exam/Review of Systems Vital Signs Vitals Vital Signs Date Time Temp Pulse Resp B/P Pulse Ox O2 Delivery O2 Flow Rate FiO2 12/04/16 07:40 98.2 72 16 123/58 99 12/02/16 21:52 Room Air Intake and Output 12/03/16 12/03/16 12/04/16 14:59 22:59 06:59 Intake Total 1230 ml 700 ml Balance 1230 ml 700 ml Exam Constitutional: alert, oriented, well developed Psych: nl mood/affect, no complaints Head: atraumatic, normocephalic Eyes: EOMI, PERRL, nl conjunctiva, nl lids, nl sclera ENMT: nl external ears & nose, nl lips & teeth, nl nasal mucosa & septum Respiratory: clear to auscultation, normal air movement Cardiovascular: nl pulses, regular rate and rhythm Gastrointestinal: nl liver, spleen, non-tender, soft Neurological: DINING ROOM MANAGER II-XII intact, nl mental status, nl speech, nl strength Results Result Diagram: 12/04/162 12/04/16441 Results 24 hrs Laboratory Tests Test 12/03/16 10:45 12/03/16 11:58 12/03/16 12:42 12/03/16 16:17 Bedside Glucose 194 161 154 86 Test 12/03/16 17:16 12/03/16 17:41 12/03/16 19:00 12/03/16 20:17 Bedside Glucose 194 216 303 H Erythrocyte Sedimentation Rate 70 H Test 12/03/16 21:39 12/04/16 03:03 12/04/16 04:42 12/04/16 07:49 Bedside Glucose 317 H 165 181 Vancomycin Level Trough 11.6 White Blood Count 6.6 # Red Blood Count 3.26 L Hemoglobin 10.2 L Hematocrit 32.1 L Mean Corpuscular Volume 98.5 Mean Corpuscular Hemoglobin 31.3 Mean Corpuscular Hemoglobin Concent 31.8 L Red Cell Distribution Width 12.6 Platelet Count 163 Mean Platelet Volume 11.3 H Neutrophils % 68.1 Lymphocytes % 21.6 Monocytes % 8.9 Eosinophils % 0.5 Basophils % 0.3 Nucleated Red Blood Cells % 0.0 Neutrophils # 4.5 Lymphocytes # 1.4 Monocytes # 0.6 Eosinophils # 0.0 Basophils # 0.0 Nucleated Red Blood Cells # 0.0 Sodium Level 139 Potassium Level 3.8 Chloride Level 103 Carbon Dioxide Level 26 Anion Gap 14 Blood Urea Nitrogen 17 Creatinine 0.91 Glucose Level 151 Calcium Level 8.8 Medications Medications Current Medications Diagnostic Test (Pha) (Accu-Chek) 1 ea 02 XX ; Start 12/03/16 at 02:00 Ondansetron HCl (Zofran Inj) 4 mg Q6H PRN IV NAUSEA AND/OR VOMITING; Start at 22:30 Miscellaneous Information 1 ea NOTE XX ; Start 12/02/16 at 23:00 Glucose (Glutose) 15 gm Q15M PRN PO DECREASED GLUCOSE; Start 12/02/16 at 23:00 Glucose (Glutose) 22.5 gm Q15M PRN PO DECREASED GLUCOSE; Start 12/02/16 at 23: 00 Dextrose (D50w Syringe) 25 ml Q15M PRN IV DECREASED GLUCOSE; Start 12/02/16 at 23:00 Dextrose (D50w Syringe) 50 ml Q15M PRN IV DECREASED GLUCOSE; Start 12/02/16 at 23:00 Glucagon (Glucagen) 1 mg Q15M PRN IM DECREASED GLUCOSE; Start 12/02/16 at 23:00 Glucose 15 gm 15 gm Q15M PRN BUCCAL DECREASED GLUCOSE; Start 12/02/16 at 23:00 Vancomycin HCl/ Sodium Chloride (Vancocin/NS) 250 ml @ 83.333 mls/ hr Q12H IVPB Last administered on 12/04/16 05:02; Admin Dose 83.333 MLS/HR; Start at 04:00 Aspirin (Halfprin) 81 mg DAILY PO Last administered on 12/03/16 08:38; Admin Dose 81 MG; Start 12/03/16 at 09:00 Gabapentin (Neurontin) 800 mg TID PO Last administered on 12/03/16 21:34; Admin Dose 800 MG; Start 12/03/16 at 09:00 Meclizine HCl (Antivert) 25 mg TID PRN PO dizziness; Start 12/02/16 at 23:00 Terazosin HCl (Hytrin) 5 mg HS PO ; Start 12/03/16 at 21:00 Enoxaparin Sodium (Lovenox) 30 mg DAILY SC Last administered on 12/03/16 08:42 ; Admin Dose 30 MG; Start 12/03/16 at 09:00 Insulin Glargine (Lantus) 20 unit DAILY SC Last administered on 12/03/16 22:22 ; Admin Dose 20 UNIT; Start 12/03/16 at 20:00 Acetaminophen/ Hydrocodone Bitart ([place] (5/325)) 1 tab Q6H PRN PO PAIN LEVEL 4 -7; Start 12/02/16 at 23:30 Acetaminophen (Tylenol Tab) 650 mg Q6H PRN PO PAIN AND OR ELEVATED TEMP; Start 12/02/16 at 23:30 Docusate Sodium (Colace) 100 mg BID PO Last administered on 12/03/16 21:34; Admin Dose 100 MG; Start 12/03/16 at 09:00 Hydralazine HCl (Apresoline) 10 mg Q6H PRN IV ELEVATED SYSTOLIC BP; Start 12/02 at 23:30 Pantoprazole (Protonix Tab) 40 mg DAILY@06 PO Last administered on 12/04/16 06 :04; Admin Dose 40 MG; Start 12/03/16 at 06:00 Zolpidem Tartrate (Ambien) 5 mg HS PRN PO INSOMNIA; Start 12/02/16 at 23:30 Benazepril HCl 10 mg 10 mg DAILY PO ; Start 12/04/16 at 09:00 Piperacillin Sod/ Tazobactam Sod (Zosyn 3.375gm/ 100 ml (Pmx)) 100 ml @ 200 mls /hr Q6 IVPB Last administered on 12/04/16t 00:53; Admin Dose 200 MLS/HR; Start 12/03/16 at 20:00 NIKHIL RAM MD Dec 04, 2016 08:24
[2016-12-04] MEDS: DOCUSATE SODIUM 100 MG CAP PO SCH ×2 (08:57→09:08)
[2016-12-04] MEDS: metFORMIN 500 MG TAB PO SCH ×2 (08:57→18:00)
[2016-12-04] MEDS: BENAZEPRIL 10 MG TAB PO SCH (08:57)
[2016-12-04] MEDS: ASPIRIN (EC) 81 MG TAB PO SCH (08:57)
[2016-12-04] MEDS: GABAPENTIN 400 MG CAP PO SCH ×3 (08:58→20:59)
[2016-12-04] MEDS: ENOXAPARIN 30 MG/0.3 ML SYG SC SCH (08:58)
[2016-12-04] MEDS: INSULIN ASPART [NOVOLOG] 3 ML PEN SC SCH ×7 (09:00→20:33)
--- NOTE | 2016-12-04 15:40 | CONS ---
Date/Time of Note Date/Time of Note DATE: 12/04/16 TIME: 15:40 Assessment/Plan Assessment/Plan Chief Complaint/Hosp Course 1. DM foot infection 2. DM 3. failed Augmentin R: consider mri hiv screen vanco/zosyn podiatry eval esr procalc mrsa nasal screen bcxs Problems: Consultation Date/Type/Reason Admit Date/Time Dec 02, 2016 at 21:01 Exam/Review of Systems Vital Signs Vitals Vital Signs Date Time Temp Pulse Resp B/P Pulse Ox O2 Delivery O2 Flow Rate FiO2 12/04/16 07:40 98.2 72 16 123/58 99 12/02/16 21:52 Room Air Intake and Output 12/03/16 12/03/16 12/04/16 15:00 23:00 07:00 Intake Total 1230 ml 700 ml Balance 1230 ml 700 ml Results Result Diagram: 12/04/16 0442 12/04/16 0442 Results 24 hrs Laboratory Tests Test 12/03/16 16:17 12/03/16 17:16 12/03/16 17:41 12/03/16 19:00 Bedside Glucose 86 194 216 Erythrocyte Sedimentation Rate 70 H Test 12/03/16 20:17 12/03/16 21:39 12/04/16 03:03 12/04/16 04:42 Bedside Glucose 303 H 317 H 165 Vancomycin Level Trough 11.6 HIV (1&2) Antibody NEGATIVE White Blood Count 6.6 # Red Blood Count 3.26 L Hemoglobin 10.2 L Hematocrit 32.1 L Mean Corpuscular Volume 98.5 Mean Corpuscular Hemoglobin 31.3 Mean Corpuscular Hemoglobin Concent 31.8 L Red Cell Distribution Width 12.6 Platelet Count 163 Mean Platelet Volume 11.3 H Neutrophils % 68.1 Lymphocytes % 21.6 Monocytes % 8.9 Eosinophils % 0.5 Basophils % 0.3 Nucleated Red Blood Cells % 0.0 Neutrophils # 4.5 Lymphocytes # 1.4 Monocytes # 0.6 Eosinophils # 0.0 Basophils # 0.0 Nucleated Red Blood Cells # 0.0 Sodium Level 139 Potassium Level 3.8 Chloride Level 103 Carbon Dioxide Level 26 Anion Gap 14 Blood Urea Nitrogen 17 Creatinine 0.91 Glucose Level 151 Calcium Level 8.8 Test 12/04/16 07:49 12/04/16 11:16 Bedside Glucose 181 148 Medications Medications Current Medications Diagnostic Test (Pha) (Accu-Chek) 1 ea 02 XX ; Start 12/03/16 at 02:00 Ondansetron HCl (Zofran Inj) 4 mg Q6H PRN IV NAUSEA AND/OR VOMITING; Start at 22:30 Miscellaneous Information 1 ea NOTE XX ; Start 12/02/16 at 23:00 Glucose (Glutose) 15 gm Q15M PRN PO DECREASED GLUCOSE; Start 12/02/16 at 23:00 Glucose (Glutose) 22.5 gm Q15M PRN PO DECREASED GLUCOSE; Start 12/02/16 at 23: 00 Dextrose (D50w Syringe) 25 ml Q15M PRN IV DECREASED GLUCOSE; Start 12/02/16 at 23:00 Dextrose (D50w Syringe) 50 ml Q15M PRN IV DECREASED GLUCOSE; Start 12/02/16 at 23:00 Glucagon (Glucagen) 1 mg Q15M PRN IM DECREASED GLUCOSE; Start 12/02/16 at 23:00 Glucose 15 gm 15 gm Q15M PRN BUCCAL DECREASED GLUCOSE; Start 12/02/16 at 23:00 Vancomycin HCl/ Sodium Chloride (Vancocin/NS) 250 ml @ 83.333 mls/ hr Q12H IVPB Last administered on 12/04/16 05:02; Admin Dose 83.333 MLS/HR; Start at 04:00 Aspirin (Halfprin) 81 mg DAILY PO Last administered on 12/04/16 08:57; Admin Dose 81 MG; Start 12/03/16 at 09:00 Gabapentin (Neurontin) 800 mg TID PO Last administered on 12/04/16 12:01; Admin Dose 800 MG; Start 12/03/16 at 09:00 Meclizine HCl (Antivert) 25 mg TID PRN PO dizziness; Start 12/02/16 at 23:00 Terazosin HCl (Hytrin) 5 mg HS PO ; Start 12/03/16 at 21:00 Enoxaparin Sodium (Lovenox) 30 mg DAILY SC Last administered on 12/04/16 08:58 ; Admin Dose 30 MG; Start 12/03/16 at 09:00 Insulin Glargine (Lantus) 20 unit DAILY SC Last administered on 12/03/16 22:22 ; Admin Dose 20 UNIT; Start 12/03/16 at 20:00 Acetaminophen/ Hydrocodone Bitart ([place] (5/325)) 1 tab Q6H PRN PO PAIN LEVEL 4 -7; Start 12/02/16 at 23:30 Acetaminophen (Tylenol Tab) 650 mg Q6H PRN PO PAIN AND OR ELEVATED TEMP; Start 12/02/16 at 23:30 Docusate Sodium (Colace) 100 mg BID PO Last administered on 12/03/16 21:34; Admin Dose 100 MG; Start 12/03/16 at 09:00 Hydralazine HCl (Apresoline) 10 mg Q6H PRN IV ELEVATED SYSTOLIC BP; Start 12/02 at 23:30 Pantoprazole (Protonix Tab) 40 mg DAILY@06 PO Last administered on 12/04/16 06 :04; Admin Dose 40 MG; Start 12/03/16 at 06:00 Zolpidem Tartrate (Ambien) 5 mg HS PRN PO INSOMNIA; Start 12/02/16 at 23:30 Benazepril HCl 10 mg 10 mg DAILY PO Last administered on 12/04/16 08:57; Admin Dose 10 MG; Start 12/04/16 at 09:00 Piperacillin Sod/ Tazobactam Sod (Zosyn 3.375gm/ 100 ml (Pmx)) 100 ml @ 200 mls /hr Q6 IVPB Last administered on 12/04/16 09:07; Admin Dose 200 MLS/HR; Start 12/03/16 at 20:00 NIKHIL RAM MD Dec 04, 2016 15:40
--- NOTE | 2016-12-04 18:13 | PN ---
Date/Time of Note Date/Time of Note DATE: 12/04/16 TIME: 18:09 Assessment/Plan VTE Prophylaxis VTE Prophylaxis Intervention: other Lines/Catheters IV Catheter Type (from [facility] Urinary Cath still in place: No Assessment/Plan Assessment/Plan -Diabetic foot ulcer left foot - per Dr Lin in podiatry consultation. -Cellulitis of left foot - per ID -Doppler ultrasound of the left foot-NEGATIVE -Elevate left foot all times -Foot cradle placement -History of [id number] - Continue metformin and Lantus and pre-meal NovoLog. -1800 suri low sodium low cholesterol diet -para educator consult -Dietary consult -History of hypertension -Resume benazepril - Aortic stenosis - Diastolic dysfunction congestive heart failure with preserved ejection fraction of 60%. - Hypertension- continue benazepril. Further recommendations based on clinical course. Plan of care discussed with Dr. Heredia. Subjective 24 Hr Interval Summary Free Text/Dictation c/o left foot pain, edema/erythema noted. dw staff Eyes: no complaints ENT: no complaints Respiratory: no complaints Cardiovascular: no complaints Gastrointestinal: no complaints Genitourinary: no complaints Musculoskeletal: bone/joint pain Skin: erythema, other Neurologic: no complaints Endocrine: no complaints Lymphatic: no complaints Exam/Review of Systems Vital Signs Vitals Vital Signs Date Time Temp Pulse Resp B/P Pulse Ox O2 Delivery O2 Flow Rate FiO2 12/04/16 07:40 98.2 72 16 123/58 99 12/02/16 21:52 Room Air Intake and Output 12/03/16 12/03/16 12/04/16 15:00 23:00 07:00 Intake Total 1230 ml 700 ml Balance 1230 ml 700 ml Exam Constitutional: alert, oriented, well developed Psych: nl mood/affect Head: atraumatic Eyes: EOMI ENMT: nl external ears & nose Neck: non-tender Respiratory: clear to auscultation Cardiovascular: nl pulses Gastrointestinal: non-tender, soft Musculoskeletal: other Neurological: nl mental status, nl speech Skin: other Lymph: nontender Results Result Diagram: 12/04/162 12/04/16441 Results 24 hrs Laboratory Tests Test 12/03/16 19:00 12/03/16 20:17 12/03/16 21:39 12/04/16 03:03 Erythrocyte Sedimentation Rate 70 H Bedside Glucose 303 H 317 H 165 Vancomycin Level Trough 11.6 HIV (1&2) Antibody NEGATIVE Test 12/04/16 04:42 12/04/16 07:49 12/04/16 11:16 12/04/16 16:39 White Blood Count 6.6 # Red Blood Count 3.26 L Hemoglobin 10.2 L Hematocrit 32.1 L Mean Corpuscular Volume 98.5 Mean Corpuscular Hemoglobin 31.3 Mean Corpuscular Hemoglobin Concent 31.8 L Red Cell Distribution Width 12.6 Platelet Count 163 Mean Platelet Volume 11.3 H Neutrophils % 68.1 Lymphocytes % 21.6 Monocytes % 8.9 Eosinophils % 0.5 Basophils % 0.3 Nucleated Red Blood Cells % 0.0 Neutrophils # 4.5 Lymphocytes # 1.4 Monocytes # 0.6 Eosinophils # 0.0 Basophils # 0.0 Nucleated Red Blood Cells # 0.0 Sodium Level 139 Potassium Level 3.8 Chloride Level 103 Carbon Dioxide Level 26 Anion Gap 14 Blood Urea Nitrogen 17 Creatinine 0.91 Glucose Level 151 Calcium Level 8.8 Bedside Glucose 181 148 81 Medications Medications Current Medications Diagnostic Test (Pha) (Accu-Chek) 1 ea 02 XX ; Start 12/03/16 at 02:00 Ondansetron HCl (Zofran Inj) 4 mg Q6H PRN IV NAUSEA AND/OR VOMITING; Start at 22:30 Miscellaneous Information 1 ea NOTE XX ; Start 12/02/16 at 23:00 Glucose (Glutose) 15 gm Q15M PRN PO DECREASED GLUCOSE; Start 12/02/16 at 23:00 Glucose (Glutose) 22.5 gm Q15M PRN PO DECREASED GLUCOSE; Start 12/02/16 at 23: 00 Dextrose (D50w Syringe) 25 ml Q15M PRN IV DECREASED GLUCOSE; Start 12/02/16 at 23:00 Dextrose (D50w Syringe) 50 ml Q15M PRN IV DECREASED GLUCOSE; Start 12/02/16 at 23:00 Glucagon (Glucagen) 1 mg Q15M PRN IM DECREASED GLUCOSE; Start 12/02/16 at 23:00 Glucose 15 gm 15 gm Q15M PRN BUCCAL DECREASED GLUCOSE; Start 12/02/16 at 23:00 Vancomycin HCl/ Sodium Chloride (Vancocin/NS) 250 ml @ 83.333 mls/ hr Q12H IVPB Last administered on 12/04/16 15:47; Admin Dose 83.333 MLS/HR; Start at 04:00 Aspirin (Halfprin) 81 mg DAILY PO Last administered on 12/04/16 08:57; Admin Dose 81 MG; Start 12/03/16 at 09:00 Gabapentin (Neurontin) 800 mg TID PO Last administered on 12/04/16 12:01; Admin Dose 800 MG; Start 12/03/16 at 09:00 Meclizine HCl (Antivert) 25 mg TID PRN PO dizziness; Start 12/02/16 at 23:00 Terazosin HCl (Hytrin) 5 mg HS PO ; Start 12/03/16 at 21:00 Enoxaparin Sodium (Lovenox) 30 mg DAILY SC Last administered on 12/04/16 08:58 ; Admin Dose 30 MG; Start 12/03/16 at 09:00 Insulin Glargine (Lantus) 20 unit DAILY SC Last administered on 12/03/16 22:22 ; Admin Dose 20 UNIT; Start 12/03/16 at 20:00 Acetaminophen/ Hydrocodone Bitart ([place] (5/325)) 1 tab Q6H PRN PO PAIN LEVEL 4 -7; Start 12/02/16 at 23:30 Acetaminophen (Tylenol Tab) 650 mg Q6H PRN PO PAIN AND OR ELEVATED TEMP; Start 12/02/16 at 23:30 Docusate Sodium (Colace) 100 mg BID PO Last administered on 12/03/16 21:34; Admin Dose 100 MG; Start 12/03/16 at 09:00 Hydralazine HCl (Apresoline) 10 mg Q6H PRN IV ELEVATED SYSTOLIC BP; Start 12/02 at 23:30 Pantoprazole (Protonix Tab) 40 mg DAILY@06 PO Last administered on 12/04/16 06 :04; Admin Dose 40 MG; Start 12/03/16 at 06:00 Zolpidem Tartrate (Ambien) 5 mg HS PRN PO INSOMNIA; Start 12/02/16 at 23:30 Benazepril HCl 10 mg 10 mg DAILY PO Last administered on 12/04/16 08:57; Admin Dose 10 MG; Start 12/04/16 at 09:00 Piperacillin Sod/ Tazobactam Sod (Zosyn 3.375gm/ 100 ml (Pmx)) 100 ml @ 200 mls /hr Q6 IVPB Last administered on 12/04/16t 09:07; Admin Dose 200 MLS/HR; Start 12/03/16 at 20:00 YULIANA SIMMONS Dec 04, 2016 18:13
[2016-12-04 20:00] VITALS: BP 115/53; RESP 18
[2016-12-04] MEDS: TERAZOSIN 5 MG CAP PO SCH (20:58)
[2016-12-05] MEDS: PIPER-TAZO 3.375 GM IV (PMX) 100 ML IVPB SCH ×4 (01:38→18:29)
[2016-12-05] MEDS: ACCU-CHEK XX SCH (02:00)
[2016-12-05] MEDS: VANCOMYCIN 1.25 GM in SOD CHLORIDE 0.9% 250 ML IVPB SCH ×2 (04:26→15:14)
[2016-12-05 05:47] LABS: ADD SCAN DIFF NO
[2016-12-05 05:57] LABS: CREATININE 0.81 mg/dl (0.61-1.24)
[2016-12-05 06:00] LABS: BASOPHILS % 0.5 % (0.0-2.0); EOSINOPHILS % 0.7 % (0.0-7.0); HEMATOCRIT 31.6 % (42.0-52.0); HEMOGLOBIN 10.4 g/dl (14.0-18.0); LYMPHOCYTES % 16.9 % (15.0-51.0); MEAN CORPUSCULAR HGB CONC 32.9 g/dl (32.0-37.0); MEAN CORPUSCULAR VOLUME 97.2 fl (82.0-101.0); MEAN PLATELET VOLUME 10.8 fl (7.4-10.4); MONOCYTE # 0.7 10^3/ul (0.3-0.9); MONOCYTES % 11.1 % (0.0-11.0); NEUTROPHIL # 4.2 10^3/ul (1.6-7.5); NEUTROPHILS % 70.3 % (39.0-77.0); PLATELET COUNT 156 10^3/UL (140-415); RED BLOOD COUNT 3.25 10^6/ul (4.70-6.10); RED CELL DISTRIBUTION WIDTH 12.4 % (11.5-14.5); WHITE BLOOD COUNT 5.9 10^3/ul (4.8-10.8)
[2016-12-05] MEDS: PANTOPRAZOLE (EC) 40 MG TAB PO SCH (06:00)
[2016-12-05 06:18] LABS: CALCIUM 8.6 mg/dl (8.4-10.2); CREATININE 0.83 mg/dl (0.61-1.24); POTASSIUM 4.3 mmol/L (3.5-5.1)
[2016-12-05] MEDS: metFORMIN 500 MG TAB PO SCH ×2 (08:06→17:35)
[2016-12-05] MEDS: INSULIN ASPART [NOVOLOG] 3 ML PEN SC SCH ×7 (08:08→21:00)
[2016-12-05 08:40] VITALS: BP 152/67; RESP 18
[2016-12-05] MEDS: INSULIN GLARGINE [LANtus] 3 ML PEN SC SCH (08:53)
[2016-12-05] MEDS: ENOXAPARIN 30 MG/0.3 ML SYG SC SCH (09:00)
[2016-12-05] MEDS: BENAZEPRIL 10 MG TAB PO SCH (09:00)
[2016-12-05] MEDS: GABAPENTIN 400 MG CAP PO SCH ×4 (09:00→21:04)
[2016-12-05] MEDS: ASPIRIN (EC) 81 MG TAB PO SCH (09:00)
[2016-12-05] MEDS: DOCUSATE SODIUM 100 MG CAP PO SCH ×2 (09:00→21:04)
--- NOTE | 2016-12-05 09:09 | CONS ---
Date/Time of Note Date/Time of Note DATE: 12/05/16 TIME: 09:08 Assessment/Plan Assessment/Plan Chief Complaint/Hosp Course 1. DM foot infection 2. DM 3. failed Augmentin R: consider mri vanco/zosyn podiatry eval esr- serially procalc--pending mrsa nasal screen bcxs Problems: Consultation Date/Type/Reason Admit Date/Time Dec 02, 2016 at 21:01 24 HR Interval Summary Free Text/Dictation continues on abx Exam/Review of Systems Vital Signs Vitals Vital Signs Date Time Temp Pulse Resp B/P Pulse Ox O2 Delivery O2 Flow Rate FiO2 12/05/16 08:40 98.5 71 18 152/67 97 12/02/16 21:52 Room Air Intake and Output 12/04/16 12/04/16 12/05/16 15:00 23:00 07:00 Intake Total 350 ml 1190 ml 550 ml Balance 350 ml 1190 ml 550 ml Exam Constitutional: alert, oriented, well developed Psych: nl mood/affect, no complaints Head: atraumatic, normocephalic Skin: other (right foot unchanged) Results Result Diagram: 12/05/16 0453 12/05/16 0453 Results 24 hrs Laboratory Tests Test 12/04/16 11:16 12/04/16 16:39 12/04/16 20:32 12/05/16 04:53 Bedside Glucose 148 81 134 White Blood Count 5.9 Red Blood Count 3.25 L Hemoglobin 10.4 L Hematocrit 31.6 L Mean Corpuscular Volume 97.2 Mean Corpuscular Hemoglobin 32.0 Mean Corpuscular Hemoglobin Concent 32.9 Red Cell Distribution Width 12.4 Platelet Count 156 Mean Platelet Volume 10.8 H Neutrophils % 70.3 Lymphocytes % 16.9 Monocytes % 11.1 H Eosinophils % 0.7 Basophils % 0.5 Nucleated Red Blood Cells % 0.0 Neutrophils # 4.2 Lymphocytes # 1.0 Monocytes # 0.7 Eosinophils # 0.0 Basophils # 0.0 Nucleated Red Blood Cells # 0.0 Sodium Level 136 Potassium Level 4.3 Chloride Level 103 Carbon Dioxide Level 27 Anion Gap 10 Blood Urea Nitrogen 12 Creatinine 0.83 Glucose Level 136 Calcium Level 8.6 Test 12/05/16 07:56 Bedside Glucose 159 Medications Medications Current Medications Diagnostic Test (Pha) (Accu-Chek) 1 ea 02 XX ; Start 12/03/16 at 02:00 Ondansetron HCl (Zofran Inj) 4 mg Q6H PRN IV NAUSEA AND/OR VOMITING; Start at 22:30 Miscellaneous Information 1 ea NOTE XX ; Start 12/02/16 at 23:00 Glucose (Glutose) 15 gm Q15M PRN PO DECREASED GLUCOSE; Start 12/02/16 at 23:00 Glucose (Glutose) 22.5 gm Q15M PRN PO DECREASED GLUCOSE; Start 12/02/16 at 23: 00 Dextrose (D50w Syringe) 25 ml Q15M PRN IV DECREASED GLUCOSE; Start 12/02/16 at 23:00 Dextrose (D50w Syringe) 50 ml Q15M PRN IV DECREASED GLUCOSE; Start 12/02/16 at 23:00 Glucagon (Glucagen) 1 mg Q15M PRN IM DECREASED GLUCOSE; Start 12/02/16 at 23:00 Glucose 15 gm 15 gm Q15M PRN BUCCAL DECREASED GLUCOSE; Start 12/02/16 at 23:00 Vancomycin HCl/ Sodium Chloride (Vancocin/NS) 250 ml @ 83.333 mls/ hr Q12H IVPB Last administered on 12/05/16 04:26; Admin Dose 83.333 MLS/HR; Start at 04:00 Aspirin (Halfprin) 81 mg DAILY PO Last administered on 12/04/16 08:57; Admin Dose 81 MG; Start 12/03/16 at 09:00 Gabapentin (Neurontin) 800 mg TID PO Last administered on 12/04/16 12:01; Admin Dose 800 MG; Start 12/03/16 at 09:00 Meclizine HCl (Antivert) 25 mg TID PRN PO dizziness; Start 12/02/16 at 23:00 Terazosin HCl (Hytrin) 5 mg HS PO ; Start 12/03/16 at 21:00 Enoxaparin Sodium (Lovenox) 30 mg DAILY SC Last administered on 12/04/16 08:58 ; Admin Dose 30 MG; Start 12/03/16 at 09:00 Insulin Glargine (Lantus) 20 unit DAILY SC Last administered on 12/05/16 08:53 ; Admin Dose 20 UNIT; Start 12/03/16 at 20:00 Acetaminophen/ Hydrocodone Bitart ([place] (5/325)) 1 tab Q6H PRN PO PAIN LEVEL 4 -7; Start 12/02/16 at 23:30 Acetaminophen (Tylenol Tab) 650 mg Q6H PRN PO PAIN AND OR ELEVATED TEMP; Start 12/02/16 at 23:30 Docusate Sodium (Colace) 100 mg BID PO Last administered on 12/03/16 21:34; Admin Dose 100 MG; Start 12/03/16 at 09:00 Hydralazine HCl (Apresoline) 10 mg Q6H PRN IV ELEVATED SYSTOLIC BP; Start 12/02 at 23:30 Pantoprazole (Protonix Tab) 40 mg DAILY@06 PO Last administered on 12/04/16 06 :04; Admin Dose 40 MG; Start 12/03/16 at 06:00 Zolpidem Tartrate (Ambien) 5 mg HS PRN PO INSOMNIA; Start 12/02/16 at 23:30 Benazepril HCl 10 mg 10 mg DAILY PO Last administered on 12/04/16 08:57; Admin Dose 10 MG; Start 12/04/16 at 09:00 Piperacillin Sod/ Tazobactam Sod (Zosyn 3.375gm/ 100 ml (Pmx)) 100 ml @ 200 mls /hr Q6 IVPB Last administered on 12/05/16 08:12; Admin Dose 200 MLS/HR; Start 12/03/16 at 20:00 NIKHIL RAM MD Dec 05, 2016 09:09
--- NOTE | 2016-12-05 17:03 | PN ---
Date/Time of Note Date/Time of Note DATE: 12/05/16 TIME: 17:01 Assessment/Plan VTE Prophylaxis VTE Prophylaxis Intervention: other Lines/Catheters [facility]from [facility] Saline Lock Urinary Cath still in place: No Assessment/Plan Assessment/Plan -Diabetic foot ulcer left foot - per Dr Lin in podiatry consultation. -Cellulitis of left foot-improving - per ID -Doppler ultrasound of the left foot-NEGATIVE -Elevate left foot all times -Foot cradle placement -History of [id number] - Continue metformin and Lantus and pre-meal NovoLog. -1800 suri low sodium low cholesterol diet -school vocational educator consult -Dietary consult -History of hypertension - benazepril - Aortic stenosis - Diastolic dysfunction congestive heart failure with preserved ejection fraction of 60%. - Hypertension- continue benazepril. Further recommendations based on clinical course. Plan of care discussed with Dr. Heredia. Subjective 24 Hr Interval Summary Eyes: no complaints ENT: no complaints Cardiovascular: no complaints Gastrointestinal: no complaints Genitourinary: no complaints Musculoskeletal: other (Left foot), swelling Skin: erythema, other (Edema the left foot) Neurologic: no complaints Endocrine: no complaints Exam/Review of Systems Vital Signs Vitals Vital Signs Date Time Temp Pulse Resp B/P Pulse Ox O2 Delivery O2 Flow Rate FiO2 12/05/16 08:40 98.5 71 18 152/67 97 12/02/16 21:52 Room Air Intake and Output 12/04/16 12/04/16 12/05/16 14:59 22:59 06:59 Intake Total 350 ml 1190 ml 550 ml Balance 350 ml 1190 ml 550 ml Exam Constitutional: alert, oriented, well developed Head: normocephalic Eyes: EOMI ENMT: nl external ears & nose Neck: non-tender Respiratory: clear to auscultation Cardiovascular: nl pulses Gastrointestinal: non-tender, soft Musculoskeletal: other Extremities: edema, other (Left foot) Skin: other (Erythema and edema left foot-cellulitis) Lymph: nontender Results Result Diagram: 12/05/16 0453 12/05/16 0453 Results 24 hrs Laboratory Tests Test 12/04/16 20:32 12/05/16 04:53 12/05/16 07:56 12/05/16 12:01 Bedside Glucose 134 159 132 White Blood Count 5.9 Red Blood Count 3.25 L Hemoglobin 10.4 L Hematocrit 31.6 L Mean Corpuscular Volume 97.2 Mean Corpuscular Hemoglobin 32.0 Mean Corpuscular Hemoglobin Concent 32.9 Red Cell Distribution Width 12.4 Platelet Count 156 Mean Platelet Volume 10.8 H Neutrophils % 70.3 Lymphocytes % 16.9 Monocytes % 11.1 H Eosinophils % 0.7 Basophils % 0.5 Nucleated Red Blood Cells % 0.0 Neutrophils # 4.2 Lymphocytes # 1.0 Monocytes # 0.7 Eosinophils # 0.0 Basophils # 0.0 Nucleated Red Blood Cells # 0.0 Sodium Level 136 Potassium Level 4.3 Chloride Level 103 Carbon Dioxide Level 27 Anion Gap 10 Blood Urea Nitrogen 12 Creatinine 0.83 Glucose Level 136 Calcium Level 8.6 Medications Medications Current Medications Diagnostic Test (Pha) (Accu-Chek) 1 ea 02 XX ; Start 12/03/16 at 02:00 Ondansetron HCl (Zofran Inj) 4 mg Q6H PRN IV NAUSEA AND/OR VOMITING; Start at 22:30 Miscellaneous Information 1 ea NOTE XX ; Start 12/02/16 at 23:00 Glucose (Glutose) 15 gm Q15M PRN PO DECREASED GLUCOSE; Start 12/02/16 at 23:00 Glucose (Glutose) 22.5 gm Q15M PRN PO DECREASED GLUCOSE; Start 12/02/16 at 23: 00 Dextrose (D50w Syringe) 25 ml Q15M PRN IV DECREASED GLUCOSE; Start 12/02/16 at 23:00 Dextrose (D50w Syringe) 50 ml Q15M PRN IV DECREASED GLUCOSE; Start 12/02/16 at 23:00 Glucagon (Glucagen) 1 mg Q15M PRN IM DECREASED GLUCOSE; Start 12/02/16 at 23:00 Glucose 15 gm 15 gm Q15M PRN BUCCAL DECREASED GLUCOSE; Start 12/02/16 at 23:00 Vancomycin HCl/ Sodium Chloride (Vancocin/NS) 250 ml @ 83.333 mls/ hr Q12H IVPB Last administered on 12/05/16 15:14; Admin Dose 83.333 MLS/HR; Start at 04:00 Aspirin (Halfprin) 81 mg DAILY PO Last administered on 12/04/16 08:57; Admin Dose 81 MG; Start 12/03/16 at 09:00 Gabapentin (Neurontin) 800 mg TID PO Last administered on 12/04/16 12:01; Admin Dose 800 MG; Start 12/03/16 at 09:00 Meclizine HCl (Antivert) 25 mg TID PRN PO dizziness; Start 12/02/16 at 23:00 Terazosin HCl (Hytrin) 5 mg HS PO ; Start 12/03/16 at 21:00 Enoxaparin Sodium (Lovenox) 30 mg DAILY SC Last administered on 12/04/16 08:58 ; Admin Dose 30 MG; Start 12/03/16 at 09:00 Insulin Glargine (Lantus) 20 unit DAILY SC Last administered on 12/05/16 08:53 ; Admin Dose 20 UNIT; Start 12/03/16 at 20:00 Acetaminophen/ Hydrocodone Bitart ([place] (5/325)) 1 tab Q6H PRN PO PAIN LEVEL 4 -7; Start 12/02/16 at 23:30 Acetaminophen (Tylenol Tab) 650 mg Q6H PRN PO PAIN AND OR ELEVATED TEMP; Start 12/02/16 at 23:30 Docusate Sodium (Colace) 100 mg BID PO Last administered on 12/03/16 21:34; Admin Dose 100 MG; Start 12/03/16 at 09:00 Hydralazine HCl (Apresoline) 10 mg Q6H PRN IV ELEVATED SYSTOLIC BP; Start 12/02 at 23:30 Pantoprazole (Protonix Tab) 40 mg DAILY@06 PO Last administered on 12/04/16 06 :04; Admin Dose 40 MG; Start 12/03/16 at 06:00 Zolpidem Tartrate (Ambien) 5 mg HS PRN PO INSOMNIA; Start 12/02/16 at 23:30 Benazepril HCl 10 mg 10 mg DAILY PO Last administered on 12/04/16 08:57; Admin Dose 10 MG; Start 12/04/16 at 09:00 Piperacillin Sod/ Tazobactam Sod (Zosyn 3.375gm/ 100 ml (Pmx)) 100 ml @ 200 mls /hr Q6 IVPB Last administered on 12/05/16 12:31; Admin Dose 200 MLS/HR; Start 12/03/16 at 20:00 YULIANA SIMMONS Dec 05, 2016 17:03
[2016-12-05 20:51] VITALS: BP 137/63; RESP 18
[2016-12-05] MEDS: TERAZOSIN 5 MG CAP PO SCH (21:04)
[2016-12-06] MEDS: PIPER-TAZO 3.375 GM IV (PMX) 100 ML IVPB SCH ×4 (00:04→17:48)
[2016-12-06] MEDS: ACCU-CHEK XX SCH (02:00)
[2016-12-06] MEDS: VANCOMYCIN 1.25 GM in SOD CHLORIDE 0.9% 250 ML IVPB SCH ×2 (03:56→15:37)
[2016-12-06 05:10] LABS: ADD SCAN DIFF NO
[2016-12-06 05:24] LABS: BASOPHILS % 0.4 % (0.0-2.0); EOSINOPHILS % 0.5 % (0.0-7.0); HEMATOCRIT 33.3 % (42.0-52.0); HEMOGLOBIN 10.8 g/dl (14.0-18.0); LYMPHOCYTES # 0.7 10^3/ul (0.8-2.9); LYMPHOCYTES % 12.8 % (15.0-51.0); MEAN CORPUSCULAR HEMOGLOBIN 31.5 pg (29.0-33.0); MEAN CORPUSCULAR HGB CONC 32.4 g/dl (32.0-37.0); MEAN CORPUSCULAR VOLUME 97.1 fl (82.0-101.0); MEAN PLATELET VOLUME 10.7 fl (7.4-10.4); MONOCYTE # 0.6 10^3/ul (0.3-0.9); MONOCYTES % 11.2 % (0.0-11.0); NEUTROPHIL # 4.1 10^3/ul (1.6-7.5); NEUTROPHILS % 74.6 % (39.0-77.0); PLATELET COUNT 146 10^3/UL (140-415); RED BLOOD COUNT 3.43 10^6/ul (4.70-6.10); RED CELL DISTRIBUTION WIDTH 12.5 % (11.5-14.5); WHITE BLOOD COUNT 5.5 10^3/ul (4.8-10.8)
[2016-12-06 05:32] LABS: POTASSIUM 3.7 mmol/L (3.5-5.1)
[2016-12-06 05:34] LABS: CREATININE 0.88 mg/dl (0.61-1.24)
[2016-12-06 05:35] LABS: CALCIUM 8.6 mg/dl (8.4-10.2)
[2016-12-06] MEDS: PANTOPRAZOLE (EC) 40 MG TAB PO SCH (06:09)
[2016-12-06 08:11] VITALS: BP 126/56; RESP 18
[2016-12-06] MEDS: ENOXAPARIN 30 MG/0.3 ML SYG SC SCH (08:58)
[2016-12-06] MEDS: INSULIN ASPART [NOVOLOG] 3 ML PEN SC SCH ×7 (08:59→20:46)
[2016-12-06] MEDS: INSULIN GLARGINE [LANtus] 3 ML PEN SC SCH (09:00)
[2016-12-06] MEDS: DOCUSATE SODIUM 100 MG CAP PO SCH ×2 (09:01→20:45)
[2016-12-06] MEDS: GABAPENTIN 400 MG CAP PO SCH ×3 (09:02→20:45)
[2016-12-06] MEDS: BENAZEPRIL 10 MG TAB PO SCH (09:02)
[2016-12-06] MEDS: metFORMIN 500 MG TAB PO SCH ×2 (09:03→17:50)
[2016-12-06] MEDS: ASPIRIN (EC) 81 MG TAB PO SCH (09:03)
--- NOTE | 2016-12-06 11:11 | CONS ---
Date/Time of Note Date/Time of Note DATE: 12/06/16 TIME: 11:10 Assessment/Plan Assessment/Plan Chief Complaint/Hosp Course assessment/impression - diabetic infection of L 1st toe/foot - DM - HTN recommendations: - ordered MRI with contrast to r/o osteomyelitis - no drainage to swab for culture - continue IV vanc and pip/tazo management d/w Pt, his RN Problems: Consultation Date/Type/Reason Admit Date/Time Dec 02, 2016 at 21:01 Initial Consult Date 12/03/16 Type of Consultation: ID Reason for Consultation diabetic infection of L foot 24 HR Interval Summary Constitutional: no complaints Detailed Summary Eyes: no complaints ENT: no complaints Respiratory: no complaints Cardiovascular: no complaints Gastrointestinal: no complaints Genitourinary: no complaints Musculoskeletal: no complaints Skin: skin lesions (L 1st toe, plantar and dorsal) Exam/Review of Systems Vital Signs Vitals Vital Signs Date Time Temp Pulse Resp B/P Pulse Ox O2 Delivery O2 Flow Rate FiO2 12/06/16 08:11 98.6 73 18 126/56 95 12/02/16 21:52 Room Air Intake and Output 12/05/16 12/05/16 12/06/16 14:59 22:59 06:59 Intake Total 250 ml 1230 ml 1400 ml Output Total 750 ml Balance 250 ml 480 ml 1400 ml Exam Constitutional: alert, oriented, well developed Psych: nl mood/affect, no complaints Head: normocephalic Eyes: nl conjunctiva, nl lids ENMT: nl external ears & nose Neck: supple Musculoskeletal: No swelling Extremities: No edema Neurological: No numbness Skin: rash or lesions (erythema of L 1st toe and dry ulcer on plantar aspect, non-TTP) Results Result Diagram: 12/06/16 0430 12/06/16 0430 Results 24 hrs Laboratory Tests Test 12/05/16 12:01 12/05/16 17:24 12/05/16 21:06 12/06/16 04:30 Bedside Glucose 132 85 173 White Blood Count 5.5 Red Blood Count 3.43 L Hemoglobin 10.8 L Hematocrit 33.3 L Mean Corpuscular Volume 97.1 Mean Corpuscular Hemoglobin 31.5 Mean Corpuscular Hemoglobin Concent 32.4 Red Cell Distribution Width 12.5 Platelet Count 146 Mean Platelet Volume 10.7 H Neutrophils % 74.6 Lymphocytes % 12.8 L Monocytes % 11.2 H Eosinophils % 0.5 Basophils % 0.4 Nucleated Red Blood Cells % 0.0 Neutrophils # 4.1 Lymphocytes # 0.7 L Monocytes # 0.6 Eosinophils # 0.0 Basophils # 0.0 Nucleated Red Blood Cells # 0.0 Sodium Level 139 Potassium Level 3.7 Chloride Level 101 Carbon Dioxide Level 29 Anion Gap 13 Blood Urea Nitrogen 10 Creatinine 0.88 Glucose Level 134 Calcium Level 8.6 Test 12/06/16 07:46 Bedside Glucose 173 Medications Medications Current Medications Diagnostic Test (Pha) (Accu-Chek) 1 ea 02 XX ; Start 12/03/16 at 02:00 Ondansetron HCl (Zofran Inj) 4 mg Q6H PRN IV NAUSEA AND/OR VOMITING; Start at 22:30 Miscellaneous Information 1 ea NOTE XX ; Start 12/02/16 at 23:00 Glucose (Glutose) 15 gm Q15M PRN PO DECREASED GLUCOSE; Start 12/02/16 at 23:00 Glucose (Glutose) 22.5 gm Q15M PRN PO DECREASED GLUCOSE; Start 12/02/16 at 23: 00 Dextrose (D50w Syringe) 25 ml Q15M PRN IV DECREASED GLUCOSE; Start 12/02/16 at 23:00 Dextrose (D50w Syringe) 50 ml Q15M PRN IV DECREASED GLUCOSE; Start 12/02/16 at 23:00 Glucagon (Glucagen) 1 mg Q15M PRN IM DECREASED GLUCOSE; Start 12/02/16 at 23:00 Glucose 15 gm 15 gm Q15M PRN BUCCAL DECREASED GLUCOSE; Start 12/02/16 at 23:00 Vancomycin HCl/ Sodium Chloride (Vancocin/NS) 250 ml @ 83.333 mls/ hr Q12H IVPB Last administered on 12/06/16 03:56; Admin Dose 83.333 MLS/HR; Start at 04:00 Aspirin (Halfprin) 81 mg DAILY PO Last administered on 12/06/16 09:03; Admin Dose 81 MG; Start 12/03/16 at 09:00 Gabapentin (Neurontin) 800 mg TID PO Last administered on 12/06/16 09:02; Admin Dose 800 MG; Start 12/03/16 at 09:00 Meclizine HCl (Antivert) 25 mg TID PRN PO dizziness; Start 12/02/16 at 23:00 Terazosin HCl (Hytrin) 5 mg HS PO Last administered on 12/05/16 21:04; Admin Dose 5 MG; Start 12/03/16 at 21:00 Enoxaparin Sodium (Lovenox) 30 mg DAILY SC Last administered on 12/06/16 08:58 ; Admin Dose 30 MG; Start 12/03/16 at 09:00 Acetaminophen/ Hydrocodone Bitart ([place] (5/325)) 1 tab Q6H PRN PO PAIN LEVEL 4 -7; Start 12/02/16 at 23:30 Acetaminophen (Tylenol Tab) 650 mg Q6H PRN PO PAIN AND OR ELEVATED TEMP; Start 12/02/16 at 23:30 Docusate Sodium (Colace) 100 mg BID PO Last administered on 12/06/16 09:01; Admin Dose 100 MG; Start 12/03/16 at 09:00 Hydralazine HCl (Apresoline) 10 mg Q6H PRN IV ELEVATED SYSTOLIC BP; Start 12/02 at 23:30 Pantoprazole (Protonix Tab) 40 mg DAILY@06 PO Last administered on 12/06/16 06 :09; Admin Dose 40 MG; Start 12/03/16 at 06:00 Zolpidem Tartrate (Ambien) 5 mg HS PRN PO INSOMNIA; Start 12/02/16 at 23:30 Benazepril HCl 10 mg 10 mg DAILY PO Last administered on 12/06/16 09:02; Admin Dose 10 MG; Start 12/04/16 at 09:00 Piperacillin Sod/ Tazobactam Sod (Zosyn 3.375gm/ 100 ml (Pmx)) 100 ml @ 200 mls /hr Q6 IVPB Last administered on 12/06/16 06:09; Admin Dose 200 MLS/HR; Start 12/03/16 at 20:00 Insulin Glargine (Lantus) 25 unit DAILY SC Last administered on 12/06/16 09:00 ; Admin Dose 25 UNIT; Start 12/06/16 at 09:00 CHRISTY LOPEZ M.D. Dec 06, 2016 11:11
--- NOTE | 2016-12-06 14:44 | PN ---
Date/Time of Note Date/Time of Note DATE: 12/06/16 TIME: 14:39 Assessment/Plan VTE Prophylaxis VTE Prophylaxis Intervention: SCD's Lines/Catheters IV [facility]from [facility] Saline Lock Central line still needed: Yes Urinary Cath still in place: No Assessment/Plan Chief Complaint/Hosp Course Assessment/Plan - Diabetic foot ulcer of the left foot, Dr Lin is asked to see pt is podiatry consultation. - Cellulitis of left foot, continue antibiotics, Dr. Wilson is following in infection disease consultation. Continue antibiotics per ID. - IDDM, continue metformin and Lantus and pre-meal NovoLog. - Aortic stenosis - Diastolic dysfunction congestive heart failure with preserved ejection fraction of 60%. - Hypertension, continue benazepril. Further recommendations based on clinical course. Plan of care discussed with Dr. Heredia. Problems: Subjective 24 Hr Interval Summary Free Text/Dictation No acute events overnight, pain is well controlled, patient remains afebrile. Exam/Review of Systems Vital Signs Vitals Vital Signs Date Time Temp Pulse Resp B/P Pulse Ox O2 Delivery O2 Flow Rate FiO2 12/06/16 08:11 98.6 73 18 126/56 95 12/02/16 21:52 Room Air Intake and Output 12/05/16 12/05/16 12/06/16 15:00 23:00 07:00 Intake Total 250 ml 1230 ml 1400 ml Output Total 750 ml Balance 250 ml 480 ml 1400 ml Exam Constitutional: alert, oriented Psych: no complaints Head: atraumatic, normocephalic Eyes: nl conjunctiva ENMT: nl external ears & nose Neck: non-tender, supple Respiratory: clear to auscultation, normal air movement Cardiovascular: nl pulses, regular rate and rhythm, systolic murmur Gastrointestinal: non-tender, soft Genitourinary - Male: nl penis Musculoskeletal: nl extremities to inspection Extremities: normal pulses Neurological: PARLOR MAID II-XII intact Skin: nl turgor, left big toe ulcer. Results Result Diagram: 12/06/16 0430 12/06/16 0430 Results 24 hrs Laboratory Tests Test 12/05/16 17:24 12/05/16 21:06 12/06/16 04:30 12/06/16 07:46 Bedside Glucose 85 173 173 White Blood Count 5.5 Red Blood Count 3.43 L Hemoglobin 10.8 L Hematocrit 33.3 L Mean Corpuscular Volume 97.1 Mean Corpuscular Hemoglobin 31.5 Mean Corpuscular Hemoglobin Concent 32.4 Red Cell Distribution Width 12.5 Platelet Count 146 Mean Platelet Volume 10.7 H Neutrophils % 74.6 Lymphocytes % 12.8 L Monocytes % 11.2 H Eosinophils % 0.5 Basophils % 0.4 Nucleated Red Blood Cells % 0.0 Neutrophils # 4.1 Lymphocytes # 0.7 L Monocytes # 0.6 Eosinophils # 0.0 Basophils # 0.0 Nucleated Red Blood Cells # 0.0 Sodium Level 139 Potassium Level 3.7 Chloride Level 101 Carbon Dioxide Level 29 Anion Gap 13 Blood Urea Nitrogen 10 Creatinine 0.88 Glucose Level 134 Calcium Level 8.6 Test 12/06/16 12:07 Bedside Glucose 122 Medications Medications Current Medications Diagnostic Test (Pha) (Accu-Chek) 1 ea 02 XX ; Start 12/03/16 at 02:00 Ondansetron HCl (Zofran Inj) 4 mg Q6H PRN IV NAUSEA AND/OR VOMITING; Start at 22:30 Miscellaneous Information 1 ea NOTE XX ; Start 12/02/16 at 23:00 Glucose (Glutose) 15 gm Q15M PRN PO DECREASED GLUCOSE; Start 12/02/16 at 23:00 Glucose (Glutose) 22.5 gm Q15M PRN PO DECREASED GLUCOSE; Start 12/02/16 at 23: 00 Dextrose (D50w Syringe) 25 ml Q15M PRN IV DECREASED GLUCOSE; Start 12/02/16 at 23:00 Dextrose (D50w Syringe) 50 ml Q15M PRN IV DECREASED GLUCOSE; Start 12/02/16 at 23:00 Glucagon (Glucagen) 1 mg Q15M PRN IM DECREASED GLUCOSE; Start 12/02/16 at 23:00 Glucose 15 gm 15 gm Q15M PRN BUCCAL DECREASED GLUCOSE; Start 12/02/16 at 23:00 Vancomycin HCl/ Sodium Chloride (Vancocin/NS) 250 ml @ 83.333 mls/ hr Q12H IVPB Last administered on 12/06/16 03:56; Admin Dose 83.333 MLS/HR; Start at 04:00 Aspirin (Halfprin) 81 mg DAILY PO Last administered on 12/06/16 09:03; Admin Dose 81 MG; Start 12/03/16 at 09:00 Gabapentin (Neurontin) 800 mg TID PO Last administered on 12/06/16 12:28; Admin Dose 800 MG; Start 12/03/16 at 09:00 Meclizine HCl (Antivert) 25 mg TID PRN PO dizziness; Start 12/02/16 at 23:00 Terazosin HCl (Hytrin) 5 mg HS PO Last administered on 12/05/16 21:04; Admin Dose 5 MG; Start 12/03/16 at 21:00 Enoxaparin Sodium (Lovenox) 30 mg DAILY SC Last administered on 12/06/16 08:58 ; Admin Dose 30 MG; Start 12/03/16 at 09:00 Acetaminophen/ Hydrocodone Bitart ([place] (5/325)) 1 tab Q6H PRN PO PAIN LEVEL 4 -7; Start 12/02/16 at 23:30 Acetaminophen (Tylenol Tab) 650 mg Q6H PRN PO PAIN AND OR ELEVATED TEMP; Start 12/02/16 at 23:30 Docusate Sodium (Colace) 100 mg BID PO Last administered on 12/06/16 09:01; Admin Dose 100 MG; Start 12/03/16 at 09:00 Hydralazine HCl (Apresoline) 10 mg Q6H PRN IV ELEVATED SYSTOLIC BP; Start 12/02 at 23:30 Pantoprazole (Protonix Tab) 40 mg DAILY@06 PO Last administered on 12/06/16 06 :09; Admin Dose 40 MG; Start 12/03/16 at 06:00 Zolpidem Tartrate (Ambien) 5 mg HS PRN PO INSOMNIA; Start 12/02/16 at 23:30 Benazepril HCl 10 mg 10 mg DAILY PO Last administered on 12/06/16 09:02; Admin Dose 10 MG; Start 12/04/16 at 09:00 Piperacillin Sod/ Tazobactam Sod (Zosyn 3.375gm/ 100 ml (Pmx)) 100 ml @ 200 mls /hr Q6 IVPB Last administered on 12/06/16 12:27; Admin Dose 200 MLS/HR; Start 12/03/16 at 20:00 Insulin Glargine (Lantus) 25 unit DAILY SC Last administered on 4/24/17at 09:00 ; Admin Dose 25 UNIT; Start 12/06/16 at 09:00 Miscellaneous Information (*Rx Drug Level Order Reminder*) VANCOMYCIN TROUGH AT 0300 ONCE ONCE XX ; Start 12/07/16 at 03:00; Stop 12/07/16 at 03:01 KIMBERLY NOYOLA Dec 06, 2016 14:44
--- NOTE | 2016-12-06 14:58 | RADRPT ---
PROCEDURE: MRI OF THE LEFT FOOT. CLINICAL INDICATION: Status post fall. Possible infection. TECHNIQUE: Multiple MR pulse sequences in multiple planes were obtained. Images were interpreted o n the high-resolution PACS system. COMPARISON: None available. Correlation is made with radiographs from 12/02/2016. FINDINGS: There is moderate bone marrow edema noted throughout the first distal phalanx well seen on the sagit samantha sequence image 20 without definite T1 bone marrow signal changes. No cortical destruction is ev ident. There is abnormal bone marrow edema and T1 bone marrow signal infiltration at the sagittal se quence image 8. No definite soft tissue changes seen in this region. Bone marrow signal at the omaira irena of the forefoot is normal. Mild first MTP joint cartilage damage is noted. There is moderate dorsal subcutaneous edema at the level of the metatarsal base seen on the sagittal sequence image 8, which is nonspecific. No evidence for a drainable fluid collection. There is mod erate edema at the plantar musculature, which is nonspecific and may be related to early neuropathic change. The Lisfranc ligament is intact. IMPRESSION: 1. Moderate bone marrow edema at the first distal phalanx without cortical destruction and T1 bone marrow signal changes, which may be reactive at this time. Consider follow-up imaging in 7-10 days to exclude early osteomyelitis. 2. Moderate bone marrow edema and T1 bone marrow signal infiltration at the fourth proximal phalanx , which could represent a nondisplaced fracture . there has been recent trauma in this region, but o steomyelitis may also have this appearance, especially if there is an ulcer in this region. RPTAT: PP .Raleigh Balbuena MD, MD Date Time Electronically viewed and signed by .Raleigh Balbuena MD, MD on 12/06/2016 14:57 .d/
--- NOTE | 2016-12-06 17:09 | CONS ---
DATE OF ADMISSION: 12/02/2016 DATE OF CONSULTATION: 12/06/2016 VASCULAR SURGERY Dear Doctors: Mr. Newton is a 66-year-old gentleman with history of diabetes and smoker about 1 to 2 packs a day, who presents with a left lower extremity diabetic foot infection involving the first toe on the plantar ulcer in that area. It seems the patient had developed this wound and bruising about a week ago when he fell and bruised the left toe about a week ago. Otherwise, the patient lackey s mention he does have some claudication but denies rest pain. He denies shortness of breath, chest pain, nausea, vomiting, fever or chills at this time. REVIEW OF SYSTEMS: A 12-point review performed and negative except what is mentioned in the HPI. PAST MEDICAL HISTORY: Active smoker, 1 to 2 packs a day, diabetes, coronary artery disease, hyperte nsion, hyperlipidemia, peripheral neuropathy, BPH. ALLERGIES: NO KNOWN DRUG ALLERGIES. PAST SURGICAL HISTORY: None reported per patient. FAMILY HISTORY: Positive for coronary artery disease and diabetes. SOCIAL HISTORY: Smoker 1 to 2 packs a day. PHYSICAL EXAMINATION: GENERAL: Alert and oriented x3, no apparent distress. HEENT: Normocephalic, atraumatic. EOMI, PERRLA. Mucosa moist. NECK: Supple. No carotid bruit. PULMONARY: Clear to auscultation bilaterally. No crackles. CARDIOVASCULAR: S1, S2 present. No murmurs. ABDOMEN: Soft, nontender, nondistended. Bowel sounds positive. EXTREMITIES: Right lower extremity: Palpable femoral pulse, nonpalpable pedal pulse. Motor, sensory intact. Ca p refill 3 to 4 seconds. No ulcers identified. Left lower extremity: Palpable femoral pulse, nonpalpable pedal pulse. Motor and sensory intact. Cap refill 3 to 4 seconds. First toe with erythema and edema about 1+. There is a plantar ulcer at the base of the 1st metatarsal with callus and erythema. No drainage was identified. ASSESSMENT AND PLAN: Bilateral lower extremity atherosclerosis with first toe plantar ulcer: It seems the patient has de veloped a new first toe diabetic foot infection and ulcer which may be related to his fall over a we ek ago. It seems the patient does have an active infection which will require him to be on antibiot ics for now. Would recommend obtaining bilateral lower extremity noninvasive vascular studies to be tter ascertain his infrainguinal disease as the patient does not have palpable pulses and has been a long time smoker. Optimize vascular status (BP meds, diet, nutrition, exercise, sugar control, antiplatelets, weight l oss). Discussed smoking cessation with the patient and he understands. 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 Thank you for allowing us to partake in the care of your patient. Please call with any questions. We will plan to paint the first toe with Betadine for now and will consult our podiatry colleague; Kristie Lin, who will see the patient in the coming day or so. Dictated By: KAROLINE CRISTINA/MICHELLE Conf#: [id number] DID#: [id number]
[2016-12-06 19:40] VITALS: BP 106/58; RESP 16
[2016-12-06] MEDS: TERAZOSIN 5 MG CAP PO SCH (20:45)
[2016-12-07] MEDS: PIPER-TAZO 3.375 GM IV (PMX) 100 ML IVPB SCH ×2 (00:02→05:29)
[2016-12-07] MEDS: ACCU-CHEK XX SCH (02:00)
[2016-12-07 03:36] LABS: ADD SCAN DIFF NO
[2016-12-07 03:41] LABS: BASOPHILS % 0.3 % (0.0-2.0); EOSINOPHILS # 0.1 10^3/ul (0.0-0.5); EOSINOPHILS % 0.8 % (0.0-7.0); HEMATOCRIT 31.1 % (42.0-52.0); HEMOGLOBIN 10.4 g/dl (14.0-18.0); LYMPHOCYTES # 0.8 10^3/ul (0.8-2.9); LYMPHOCYTES % 12.6 % (15.0-51.0); MEAN CORPUSCULAR HGB CONC 33.4 g/dl (32.0-37.0); MEAN CORPUSCULAR VOLUME 98.7 fl (82.0-101.0); MEAN PLATELET VOLUME 10.6 fl (7.4-10.4); MONOCYTES % 15.2 % (0.0-11.0); NEUTROPHIL # 4.6 10^3/ul (1.6-7.5); NEUTROPHILS % 70.5 % (39.0-77.0); PLATELET COUNT 141 10^3/UL (140-415); RED BLOOD COUNT 3.15 10^6/ul (4.70-6.10); RED CELL DISTRIBUTION WIDTH 12.7 % (11.5-14.5); WHITE BLOOD COUNT 6.5 10^3/ul (4.8-10.8)
[2016-12-07 04:00] LABS: POTASSIUM 3.8 mmol/L (3.5-5.1)
[2016-12-07 04:03] LABS: CREATININE 2.06 mg/dl (0.61-1.24)
[2016-12-07] MEDS: PANTOPRAZOLE (EC) 40 MG TAB PO SCH (05:29)
[2016-12-07 07:48] VITALS: BP 124/60; RESP 18
[2016-12-07] MEDS: metFORMIN 500 MG TAB PO SCH (07:55)
[2016-12-07] MEDS: INSULIN ASPART [NOVOLOG] 3 ML PEN SC SCH ×7 (07:57→20:20)
[2016-12-07] MEDS: INSULIN GLARGINE [LANtus] 3 ML PEN SC SCH (07:59)
[2016-12-07] MEDS: BENAZEPRIL 10 MG TAB PO SCH (08:26)
[2016-12-07] MEDS: GABAPENTIN 400 MG CAP PO SCH ×4 (08:27→20:31)
[2016-12-07] MEDS: ASPIRIN (EC) 81 MG TAB PO SCH (08:27)
[2016-12-07] MEDS: ENOXAPARIN 30 MG/0.3 ML SYG SC SCH (08:27)
[2016-12-07] MEDS: DOCUSATE SODIUM 100 MG CAP PO SCH ×3 (08:27→20:31)
[2016-12-07] MEDS ORDERED: VANCOMYCIN 1 GM in NS 250 ML IVPB SCH (09:00)
--- NOTE | 2016-12-07 09:20 | RADRPT ---
PROCEDURE: US Lower extremity Venous. CLINICAL INDICATION: Vein mapping TECHNIQUE: Multiple sonographic images of the bilateral lower extremity superficial venous system was obtained utilizing grayscale, color-flow, compressive sonography and doppler imaging with augmen tation. The images were reviewed on a PACS workstation. COMPARISON: None. FINDINGS: Measurements from the great saphenous veins were obtained. Right great saphenous vein was divided into eight segments with the first segment being more proxima l in the 8th segment more distal. Measurements were obtained as below in mm. 1. 3.0 mm 2. 1.8 mm 3. 1.7 mm 4. 1.8 mm 5. 1.6 mm 6. 2.2 mm 7. 1.6 mm 8. 2.0 mm Left great saphenous vein was divided into eight segments with the first segment being more proximal in the 8th segment more distal. Measurements were obtained as below in mm. 1. 6.0 mm 2. 4.1 mm 3. 3.7 mm 4. 3.3 mm 5. 2.9 mm 6. 1.9 mm 7. 2.7 mm 8. 2.2 mm . IMPRESSION: Bilateral greater saphenous vein mapping as described.. RPTAT: AA .Alli Peterson MD, Date Time Electronically viewed and signed by .Alli Peterson MD, MD on 12/07/2016 09:19 .S/
[2016-12-07 10:33] VITALS: PULSE 70
--- NOTE | 2016-12-07 11:44 | CONS ---
Date/Time of Note Date/Time of Note DATE: 12/07/16 TIME: 11:41 Assessment/Plan Assessment/Plan Chief Complaint/Hosp Course assessment/impression - diabetic infection of L 1st toe/foot. MRI on 12/06/2016 was non-diagnostic - DM - HTN recommendations: - ordered three phase bone scan because MRI on 12/06/2016 was non-diagnostic for osteomyelitis - no drainage to swab for culture - continue IV vanc and pip/tazo (12/03/2016) management d/w Pt, his RN Problems: Consultation Date/Type/Reason Admit Date/Time Dec 02, 2016 at 21:01 Initial Consult Date 12/03/16 Type of Consultation: ID [id number] HR Interval Summary Constitutional: no complaints, other (Pt showed two thumbs up) Detailed Summary Musculoskeletal: other (Pt denied pain of L foot) Exam/Review of Systems Vital Signs Vitals Vital Signs Date Time Temp Pulse Resp B/P Pulse Ox O2 Delivery O2 Flow Rate FiO2 12/07/16 10:33 98.9 70 12/07/16 07:48 18 124/60 94 Intake and Output 12/06/16 12/06/16 12/07/16 15:00 23:00 07:00 Intake Total 100 ml 1250 ml 560 ml Balance 100 ml 1250 ml 560 ml Exam Constitutional: alert, oriented, well developed Psych: no complaints Head: atraumatic, normocephalic Eyes: nl conjunctiva, nl lids ENMT: nl external ears & nose, nl nasal mucosa & septum Neck: supple Musculoskeletal: No swelling Extremities: No edema Skin: other (erythema of L foot/toes, non-TTP) Results Result Diagram: 12/07/16 0320 12/07/16 0320 Results 24 hrs Laboratory Tests Test 12/06/16 12:07 12/06/16 17:05 12/06/16 20:40 12/07/16 00:32 Bedside Glucose 122 149 72 76 Test 12/07/16 03:20 12/07/16 07:38 White Blood Count 6.5 Red Blood Count 3.15 L Hemoglobin 10.4 L Hematocrit 31.1 L Mean Corpuscular Volume 98.7 Mean Corpuscular Hemoglobin 33.0 Mean Corpuscular Hemoglobin Concent 33.4 Red Cell Distribution Width 12.7 Platelet Count 141 Mean Platelet Volume 10.6 H Neutrophils % 70.5 Lymphocytes % 12.6 L Monocytes % 15.2 H Eosinophils % 0.8 Basophils % 0.3 Nucleated Red Blood Cells % 0.0 Neutrophils # 4.6 Lymphocytes # 0.8 Monocytes # 1.0 H Eosinophils # 0.1 Basophils # 0.0 Nucleated Red Blood Cells # 0.0 Sodium Level 139 Potassium Level 3.8 Chloride Level 101 Carbon Dioxide Level 26 Anion Gap 16 Blood Urea Nitrogen 16 Creatinine 2.06 #H Glucose Level 111 Calcium Level 8.0 L Vancomycin Level Trough 22.7 *H Bedside Glucose 149 Medications Medications Current Medications Diagnostic Test (Pha) (Accu-Chek) 1 ea 02 XX ; Start 12/03/16 at 02:00 Ondansetron HCl (Zofran Inj) 4 mg Q6H PRN IV NAUSEA AND/OR VOMITING; Start at 22:30 Miscellaneous Information 1 ea NOTE XX ; Start 12/02/16 at 23:00 Glucose (Glutose) 15 gm Q15M PRN PO DECREASED GLUCOSE; Start 12/02/16 at 23:00 Glucose (Glutose) 22.5 gm Q15M PRN PO DECREASED GLUCOSE; Start 12/02/16 at 23: 00 Dextrose (D50w Syringe) 25 ml Q15M PRN IV DECREASED GLUCOSE; Start 12/02/16 at 23:00 Dextrose (D50w Syringe) 50 ml Q15M PRN IV DECREASED GLUCOSE; Start 12/02/16 at 23:00 Glucagon (Glucagen) 1 mg Q15M PRN IM DECREASED GLUCOSE; Start 12/02/16 at 23:00 Glucose (Glutose) 15 gm Q15M PRN BUCCAL DECREASED GLUCOSE; Start 12/02/16 at 23 :00 Aspirin (Halfprin) 81 mg DAILY PO Last administered on 12/07/16 08:27; Admin Dose 81 MG; Start 12/03/16 at 09:00 Gabapentin (Neurontin) 800 mg TID PO Last administered on 12/06/16 20:45; Admin Dose 800 MG; Start 12/03/16 at 09:00 Meclizine HCl (Antivert) 25 mg TID PRN PO dizziness; Start 12/02/16 at 23:00 Terazosin HCl (Hytrin) 5 mg HS PO Last administered on 12/06/16 20:45; Admin Dose 5 MG; Start 12/03/16 at 21:00 Enoxaparin Sodium (Lovenox) 30 mg DAILY SC Last administered on 12/07/16 08:27 ; Admin Dose 30 MG; Start 12/03/16 at 09:00 Acetaminophen/ Hydrocodone Bitart ([place] (5/325)) 1 tab Q6H PRN PO PAIN LEVEL 4 -7; Start 12/02/16 at 23:30 Acetaminophen (Tylenol Tab) 650 mg Q6H PRN PO PAIN AND OR ELEVATED TEMP; Start 12/02/16 at 23:30 Docusate Sodium (Colace) 100 mg BID PO Last administered on 12/06/16 20:45; Admin Dose 100 MG; Start 12/03/16 at 09:00 Hydralazine HCl (Apresoline) 10 mg Q6H PRN IV ELEVATED SYSTOLIC BP; Start 12/02 at 23:30 Pantoprazole (Protonix Tab) 40 mg DAILY@06 PO Last administered on 12/07/16 05 :29; Admin Dose 40 MG; Start 12/03/16 at 06:00 Zolpidem Tartrate (Ambien) 5 mg HS PRN PO INSOMNIA; Start 12/02/16 at 23:30 Benazepril HCl (Lotensin) 10 mg DAILY PO Last administered on 12/07/16 08:26; Admin Dose 10 MG; Start 12/04/16 at 09:00 Insulin Glargine 25 unit 25 unit DAILY SC Last administered on 12/07/16 07:59 ; Admin Dose 25 UNIT; Start 12/06/16 at 09:00 Piperacillin Sod/ Tazobactam Sod (Zosyn 2.25gm/ 50ml (Pmx)) 50 ml @ 100 mls/hr Q6 IVPB ; Start 12/07/16 at 12:00 CHRISTY LOPEZ M.D. Dec 07, 2016 11:44
--- NOTE | 2016-12-07 12:01 | PN ---
Date/Time of Note Date/Time of Note DATE: 12/07/16 TIME: 11:59 Assessment/Plan VTE Prophylaxis VTE Prophylaxis Intervention: SCD's Lines/Catheters IV Catheter Type (from [facility] Urinary Cath still in place: No Assessment/Plan Chief Complaint/Hosp Course Assessment/Plan - Diabetic foot ulcer of the left foot, Dr Lin is asked to see pt is podiatry consultation. - Cellulitis of left foot, continue antibiotics, Dr. Wilson is following in infection disease consultation. Continue antibiotics per ID. - IDDM, continue metformin and Lantus and pre-meal NovoLog. - Aortic stenosis - Diastolic dysfunction congestive heart failure with preserved ejection fraction of 60%. - Hypertension, continue benazepril. - ARANZA, most likely Vanco induced, continue IVF. Further recommendations based on clinical course. Plan of care discussed with Dr. Heredia. Problems: Subjective 24 Hr Interval Summary Free Text/Dictation Patient denies any pain, hemodynamically stable. pending bone scan to r/o osteo. Increased creat today, continue IVF. Exam/Review of Systems Vital Signs Vitals Vital Signs Date Time Temp Pulse Resp B/P Pulse Ox O2 Delivery O2 Flow Rate FiO2 12/07/16 10:33 98.9 70 12/07/16 07:48 18 124/60 94 Intake and Output 12/06/16 12/06/16 12/07/16 15:00 23:00 07:00 Intake Total 100 ml 1250 ml 560 ml Balance 100 ml 1250 ml 560 ml Exam Constitutional: alert, oriented Psych: no complaints Head: atraumatic, normocephalic Eyes: nl conjunctiva ENMT: nl external ears & nose Neck: non-tender, supple Respiratory: clear to auscultation, normal air movement Cardiovascular: nl pulses, regular rate and rhythm, systolic murmur Gastrointestinal: non-tender, soft Genitourinary - Male: nl penis Musculoskeletal: nl extremities to inspection Extremities: normal pulses Neurological: [employer] II-XII intact Skin: nl turgor, left big toe ulcer. Results Result Diagram: 12/07/16 0320 12/07/16 0320 Results 24 hrs Laboratory Tests Test 12/06/16 12:07 12/06/16 17:05 12/06/16 20:40 12/07/16 00:32 Bedside Glucose 122 149 72 76 Test 12/07/16 03:20 12/07/16 07:38 White Blood Count 6.5 Red Blood Count 3.15 L Hemoglobin 10.4 L Hematocrit 31.1 L Mean Corpuscular Volume 98.7 Mean Corpuscular Hemoglobin 33.0 Mean Corpuscular Hemoglobin Concent 33.4 Red Cell Distribution Width 12.7 Platelet Count 141 Mean Platelet Volume 10.6 H Neutrophils % 70.5 Lymphocytes % 12.6 L Monocytes % 15.2 H Eosinophils % 0.8 Basophils % 0.3 Nucleated Red Blood Cells % 0.0 Neutrophils # 4.6 Lymphocytes # 0.8 Monocytes # 1.0 H Eosinophils # 0.1 Basophils # 0.0 Nucleated Red Blood Cells # 0.0 Sodium Level 139 Potassium Level 3.8 Chloride Level 101 Carbon Dioxide Level 26 Anion Gap 16 Blood Urea Nitrogen 16 Creatinine 2.06 #H Glucose Level 111 Calcium Level 8.0 L Vancomycin Level Trough 22.7 *H Bedside Glucose 149 Medications Medications Current Medications Diagnostic Test (Pha) (Accu-Chek) 1 ea 02 XX ; Start 12/03/16 at 02:00 Ondansetron HCl (Zofran Inj) 4 mg Q6H PRN IV NAUSEA AND/OR VOMITING; Start at 22:30 Miscellaneous Information 1 ea NOTE XX ; Start 12/02/16 at 23:00 Glucose (Glutose) 15 gm Q15M PRN PO DECREASED GLUCOSE; Start 12/02/16 at 23:00 Glucose (Glutose) 22.5 gm Q15M PRN PO DECREASED GLUCOSE; Start 12/02/16 at 23: 00 Dextrose (D50w Syringe) 25 ml Q15M PRN IV DECREASED GLUCOSE; Start 12/02/16 at 23:00 Dextrose (D50w Syringe) 50 ml Q15M PRN IV DECREASED GLUCOSE; Start 12/02/16 at 23:00 Glucagon (Glucagen) 1 mg Q15M PRN IM DECREASED GLUCOSE; Start 12/02/16 at 23:00 Glucose (Glutose) 15 gm Q15M PRN BUCCAL DECREASED GLUCOSE; Start 12/02/16 at 23 :00 Aspirin (Halfprin) 81 mg DAILY PO Last administered on 12/07/16 08:27; Admin Dose 81 MG; Start 12/03/16 at 09:00 Gabapentin (Neurontin) 800 mg TID PO Last administered on 12/06/16 20:45; Admin Dose 800 MG; Start 12/03/16 at 09:00 Meclizine HCl (Antivert) 25 mg TID PRN PO dizziness; Start 12/02/16 at 23:00 Terazosin HCl (Hytrin) 5 mg HS PO Last administered on 12/06/16 20:45; Admin Dose 5 MG; Start 12/03/16 at 21:00 Enoxaparin Sodium (Lovenox) 30 mg DAILY SC Last administered on 12/07/16 08:27 ; Admin Dose 30 MG; Start 12/03/16 at 09:00 Acetaminophen/ Hydrocodone Bitart ([place] (5/325)) 1 tab Q6H PRN PO PAIN LEVEL 4 -7; Start 12/02/16 at 23:30 Acetaminophen (Tylenol Tab) 650 mg Q6H PRN PO PAIN AND OR ELEVATED TEMP; Start 12/02/16 at 23:30 Docusate Sodium (Colace) 100 mg BID PO Last administered on 12/06/16 20:45; Admin Dose 100 MG; Start 12/03/16 at 09:00 Hydralazine HCl (Apresoline) 10 mg Q6H PRN IV ELEVATED SYSTOLIC BP; Start 12/02 at 23:30 Pantoprazole (Protonix Tab) 40 mg DAILY@06 PO Last administered on 12/07/16 05 :29; Admin Dose 40 MG; Start 12/03/16 at 06:00 Zolpidem Tartrate (Ambien) 5 mg HS PRN PO INSOMNIA; Start 12/02/16 at 23:30 Benazepril HCl (Lotensin) 10 mg DAILY PO Last administered on 12/07/16 08:26; Admin Dose 10 MG; Start 12/04/16 at 09:00 Insulin Glargine 25 unit 25 unit DAILY SC Last administered on 12/07/16 07:59 ; Admin Dose 25 UNIT; Start 12/06/16 at 09:00 Piperacillin Sod/ Tazobactam Sod (Zosyn 2.25gm/ 50ml (Pmx)) 50 ml @ 100 mls/hr Q6 IVPB ; Start 12/07/16 at 12:00 KIMBERLY NOYOLA Dec 07, 2016 12:01
[2016-12-07] MEDS: SOD CHLORIDE 0.45% 1,000 ML IV SCH (12:17)
[2016-12-07] MEDS: PIPER-TAZO 2.25 GM (PMX) 50 ML IVPB SCH ×2 (12:17→17:33)
--- NOTE | 2016-12-07 13:18 | CONS ---
DATE OF ADMISSION: 12/02/2016 DATE OF CONSULTATION: 12/07/2016 TYPE OF CONSULTATION: Nephrology. REFERRING PHYSICIAN: Dr. Zhou Heredia REASON FOR CONSULTATION: Acute kidney injury. The patient presented with a normal creatinine and creatinine bumped up to 2.06. HISTORY OF PRESENT ILLNESS: This is a 66-year-old male with a past medical history of insulin-dependent diabetes mellitus, hypertension, history of possible low proteinuric chronic kidney disease, but no workup was done before. The patient presented with a diabetic infection of the left first toe and foot MRI was nondiagnostic. The patient has been getting IV antibiotics including vancomycin and Zosyn. He presented with a normal creatinine upon admission including 0.6 on admission, which bumped up to 2.06 and renal has been consulted for acute kidney injury. At the time of my evaluations, no fever, chills, or chest pain, palpitation, headache, dizziness, blurry vision, constipation, diarrhea, dysuria, increased urinary frequency. REVIEW OF SYSTEMS: Positive for left foot infection, pain, swelling and increased urinary frequency. Other review of systems has been obtained and is negative except what is mentioned in the history of present illness. PAST MEDICAL HISTORY: Notable for diabetes mellitus, hypertension, history of aortic stenosis, diastolic dysfunction with ejection fraction 60% on echocardiogram, cellulitis of the left foot with left foot diabetic ulcer. PAST SURGICAL HISTORY: Includes left toe wound incision and drainage. SOCIAL HISTORY: No smoking, alcohol or recreational drug use. FAMILY HISTORY: Noncontributory. PHYSICAL EXAMINATION: VITAL SIGNS: Temperature 99.9, heart rate 78, respiration 18, blood pressure 124/60, saturation is 94% on room air. GENERAL: Awake, alert, in no distress. HEENT: Normal. Oropharynx clear. NECK: Supple, no JVD, no lymphadenopathy. LUNGS: Clear to auscultation. No crackles, no wheezes. HEART: S1, S2, with regular rhythm, no murmur. ABDOMEN: Soft, nontender, nondistended. Bowel sounds are present. EXTREMITIES: No clubbing, cyanosis, or edema. Patient has a left foot diabetic ulcer with dressing on. Podiatry has been consulted in to evaluate the left foot ulcer for incision and drainage. NEUROLOGICAL: Nonfocal, intact. PSYCHIATRIC: Appropriate affect and mood. LABORATORY DATA/DIAGNOSTIC IMAGIN. Sodium 139, potassium 3.8, chloride 101, bicarbonate 26, BUN 16, creatinine 2.06, glucose 111, calcium is 8. WBC 6.5, hemoglobin 10.4, platelet count is 141. Toxicology is vancomycin level 22.7. Serum HIV 1 and 2 are negative. 2. The patient had a left foot MRI done which is nondiagnostic for osteomyelitis. 3. Ultrasound of the lower extremities venous which shows the bilateral greater saphenous vein mapping is done. 4. Lower extremity Doppler ultrasound is negative for DVT. 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 Renal has been consulted because of: 1. Acute kidney injury with a creatinine 2.06, likely secondary to acute tubular necrosis from a vancomycin induced nephrotoxicity with a vancomycin level of 22.2. 2. Left foot diabetic ulcer/cellulitis currently on IV antibiotics, Zosyn and vancomycin. 3. History of diabetes mellitus, insulin-dependent with lower extremity neuropathy. 4. History of hypertension. 5. History of aortic stenosis with diastolic dysfunction with ejection fraction 60% on echocardiogram. PLAN: Thank you, Dr. Heredia, for this consultation. 1. The patient likely has ATN from vancomycin-induced nephrotoxicity. Vancomycin level was 22.2, so I communicated with the pharmacy to hold the vancomycin dose and further vancomycin dose will be decided on the next level of vancomycin. 2. Infectious disease has been following the patient and adjust antibiotics accordingly. 3. I will order urine studies including a urine sodium, urine protein creatinine ratio and urine eosinophils as a part of the workup for possible low proteinuric chronic kidney disease. 4. Morning labs including a uric acid and CK total has been ordered. 5. I will order the renal ultrasound to better assess the kidney size to rule out hydronephrosis and echogenicity in the kidneys. 6. IV antibiotics as per infectious disease service. 7. I will hold the patient's benazepril and Metformin due to the rising creatinine to 2.06. The patient currently seen in the med/surg floor and he will be followed up along with the infectious disease service and primary care service. Dictated By: TASHIA MCGARRY MD, KP/MICHELLE Conf#: [id number] DID#: [id number] [facility]OSPITALKristie
--- NOTE | 2016-12-07 14:51 | RADRPT ---
PROCEDURE: Retroperitoneal US. CLINICAL INDICATION: acute renal failure, / NOTES TECHNIQUE: Multiple sonographic images of the retroperitoneum were obtained. The images were revi ewed on a PACS workstation. COMPARISON: No prior studies are available for comparison. FINDINGS: The right kidney measures 11.9 cm. The left kidney measures 12.4 cm. The renal parenchymal echotexture is normal. There is no hydronephrosis. There is no focal renal mass or calcification seen. The bladder is underdistended which limits evaluation though grossly unremarkable. IMPRESSION: Unremarkable retroperitoneal sonogram. RPTAT: EE Physician Monika Date Time Electronically viewed and signed by Physician Monika on 12/07/2016 14:51 RA/
[2016-12-07] MEDS: COLLAGENASE 30 GM TUBE TOP SCH ×2 (16:00→17:33)
--- NOTE | 2016-12-07 16:27 | RADRPT ---
PROCEDURE: Three-phase bone scan study CLINICAL INDICATION: 66 -year-old patient with left foot pain. TECHNIQUE: Following the intravenous injection of 25.2 mCi of Tc-99m MDP, a three-phase bone scan study of the feet bilaterally was obtained. COMPARISON: No prior bone scan studies. MRI of the left foot dated December 06, 2016. FINDINGS: Blood flow phase of the study demonstrates [id number] asymmetrically increased blood flow in t he left foot as compared to the right. Blood pooling images reveal mild asymmetrically increased blood pooling activity in the left foot as compared to the right. Delayed images of both feet demonstrate small foci of increased tracer activity in the distal phalan x of the left great toe and at the left fourth proximal phalanx. Additional areas of increased activity are seen in the mid feet bilaterally and in the right fourth proximal phalanx. IMPRESSION: 1. Asymmetrically increased blood flow and blood pooling activity in the left foot along with small foci of increased tracer activity in the distal phalanx of the left great toe and left fourth proxi mal phalanx corresponding to signal abnormalities on the MRI dated December 06, 2016; the findings are nonspecific, but infectious process cannot be ruled out. 2. Small nonspecific areas of increased activity in the mid feet bilaterally and right fourth proxi mal phalanx possibly represent degenerative changes. 3. No other abnormal areas of increased uptake in the obtained limited views of both feet. RPTAT: HH .Rehana Conklin MD, MD Date Time Electronically viewed and signed by .Rehana Conklin MD, on 12/07/2016 16:27 .L/
[2016-12-07 19:41] VITALS: BP 116/56; RESP 16
[2016-12-07] MEDS: TERAZOSIN 5 MG CAP PO SCH (20:28)
[2016-12-08] VITALS (9 sets, daily range): BP systolic 74–135; BP diastolic 46–72; PULSE 74–92; RESP 16–18
[2016-12-08] MEDS: PIPER-TAZO 2.25 GM (PMX) 50 ML IVPB SCH ×4 (00:14→22:30)
[2016-12-08] MEDS: ACCU-CHEK XX SCH (01:39)
[2016-12-08] MEDS: SOD CHLORIDE 0.45% 1,000 ML IV SCH ×4 (02:48→22:29)
--- NOTE | 2016-12-08 05:25 | RADRPT ---
PROCEDURE: US Lower Extremity Arteries. CLINICAL INDICATION: Pain, ulcer TECHNIQUE: Multiple longitudinal and transverse images of the bilateral lower extremity arteries w ere obtained with duke scale and color Doppler imaging. COMPARISON: No prior studies are available for comparison. FINDINGS: RIGHT: WPG046.6 cm/sec PSFA79.8 cm/sec MSFA63.2 cm/sec DSFA41.1 cm/sec POP54.3 cm/sec PTAoccluded DPA7.1 cm/sec LEFT: BZN704.7 cm/sec LTDR765.7 cm/sec MSFA67.7 cm/sec DSFA69.2 cm/sec POP72.0 cm/sec PTA15.6 cm/sec DPA56.4 cm/sec Right: There is triphasic flow within the right common femoral, superficial femoral and popliteal ar alcides. No significant flow is seen within the posterior tibialis artery. There is monophasic flow w ithin the right dorsalis pedis artery. Left: There is triphasic flow within the common femoral and proximal superficial femoral artery. T here is borderline biphasic flow within the mid and distal portion of the left superficial femoral a rtery. The popliteal artery demonstrates triphasic flow. Monophasic flow seen distal to the poplit eal artery within the left posterior tibialis and dorsalis pedis arteries. NILDA: RIGHT: DP 1.04 PT occluded Toe: 0.64 LEFT: DP 1.2 PT 1.0 Toe: 0.48 IMPRESSION: 1. Occlusion of the right posterior tibialis artery. 2. Monophasic waveforms within the right dorsalis pedis artery and left posterior tibialis and dors danie pedis arteries. 3. Decreased ABIs of the toes measuring 0.6 on the right and 0.5 on the left. RPTAT:HH .Hailey Curry MD, Date Time Electronically viewed and signed by .Hailey Curry MD, MD on 12/08/2016 05:25 .G/
[2016-12-08 05:59] LABS: URIC ACID 5.6 mg/dl (3.1-7.9)
[2016-12-08] MEDS: PANTOPRAZOLE (EC) 40 MG TAB PO SCH (06:09)
[2016-12-08 07:30] LABS: CREATININE 4.66 mg/dl (0.61-1.24)
[2016-12-08] MEDS: INSULIN ASPART [NOVOLOG] 3 ML PEN SC SCH ×7 (07:35→20:32)
[2016-12-08] MEDS: DOCUSATE SODIUM 100 MG CAP PO SCH ×2 (08:38→20:32)
[2016-12-08] MEDS: COLLAGENASE 30 GM TUBE TOP SCH (08:38)
[2016-12-08] MEDS: GABAPENTIN 400 MG CAP PO SCH ×3 (08:38→20:33)
[2016-12-08] MEDS: ASPIRIN (EC) 81 MG TAB PO SCH (08:38)
[2016-12-08] MEDS: ENOXAPARIN 30 MG/0.3 ML SYG SC SCH (08:40)
--- NOTE | 2016-12-08 09:29 | CONS ---
Date/Time of Note Date/Time of Note DATE: 12/08/16 TIME: 09:26 Assessment/Plan Assessment/Plan Chief Complaint/Hosp Course assessment/impression - diabetic infection of L 1st toe/foot. 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 and left fourth proximal phalanx - DM - HTN recommendations: - I recommend 6 weeks of antibiotics to treat 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 and left fourth proximal phalanx: IV vanc and pip/tazo (2016 through 01/15/2017) - please order weekly CBC and BMP while Pt's on long-term antibiotics Problems: Consultation Date/Type/Reason Admit Date/Time Dec 02, 2016 at 21:01 Initial Consult Date 12/03/16 Type of Consultation: ID 24 HR Interval Summary Free Text/Dictation Pt's sleepy and did not open his eyes to respond to my questions except for pain Detailed Summary Musculoskeletal: No bone/joint pain Exam/Review of Systems Vital Signs Vitals Vital Signs Date Time Temp Pulse Resp B/P Pulse Ox O2 Delivery O2 Flow Rate FiO2 12/07/16 19:41 98.4 82 16 116/56 95 Intake and Output 12/07/16 12/07/16 12/08/16 14:59 22:59 06:59 Intake Total 30 ml 1450 ml 1450 ml Balance 30 ml 1450 ml 1450 ml Exam Constitutional: frail Psych: nl mood/affect, no complaints Head: atraumatic, normocephalic Eyes: nl conjunctiva ENMT: nl external ears & nose, nl nasal mucosa & septum Respiratory: clear to auscultation, normal air movement Cardiovascular: nl pulses, regular rate and rhythm Musculoskeletal: swelling, No joint tenderness Extremities: No edema Results Result Diagram: 12/07/16 0320 12/08/16 0440 Results 24 hrs Laboratory Tests Test 12/07/16 11:56 12/07/16 17:26 12/07/16 20:13 12/08/16 04:40 Bedside Glucose 197 148 175 Blood Urea Nitrogen 28 #H Creatinine 4.66 #H Uric Acid 5.6 Creatine Kinase 26 Random Vancomycin Level 18.9 Test 12/08/16 07:53 Bedside Glucose 145 Medications Medications Current Medications Diagnostic Test (Pha) (Accu-Chek) 1 ea 02 XX ; Start 12/03/16 at 02:00 Ondansetron HCl (Zofran Inj) 4 mg Q6H PRN IV NAUSEA AND/OR VOMITING; Start at 22:30 Miscellaneous Information 1 ea NOTE XX ; Start 12/02/16 at 23:00 Glucose (Glutose) 15 gm Q15M PRN PO DECREASED GLUCOSE; Start 12/02/16 at 23:00 Glucose (Glutose) 22.5 gm Q15M PRN PO DECREASED GLUCOSE; Start 12/02/16 at 23: 00 Dextrose (D50w Syringe) 25 ml Q15M PRN IV DECREASED GLUCOSE; Start 12/02/16 at 23:00 Dextrose (D50w Syringe) 50 ml Q15M PRN IV DECREASED GLUCOSE; Start 12/02/16 at 23:00 Glucagon (Glucagen) 1 mg Q15M PRN IM DECREASED GLUCOSE; Start 12/02/16 at 23:00 Glucose (Glutose) 15 gm Q15M PRN BUCCAL DECREASED GLUCOSE; Start 12/02/16 at 23 :00 Aspirin (Halfprin) 81 mg DAILY PO Last administered on 12/08/16 08:38; Admin Dose 81 MG; Start 12/03/16 at 09:00 Gabapentin (Neurontin) 800 mg TID PO Last administered on 12/08/16 08:38; Admin Dose 800 MG; Start 12/03/16 at 09:00 Meclizine HCl (Antivert) 25 mg TID PRN PO dizziness; Start 12/02/16 at 23:00 Terazosin HCl (Hytrin) 5 mg HS PO Last administered on 12/07/16 20:28; Admin Dose 5 MG; Start 12/03/16 at 21:00 Enoxaparin Sodium (Lovenox) 30 mg DAILY SC Last administered on 12/08/16 08:40 ; Admin Dose 30 MG; Start 12/03/16 at 09:00 Acetaminophen/ Hydrocodone Bitart ([place] (5/325)) 1 tab Q6H PRN PO PAIN LEVEL 4 -7; Start 12/02/16 at 23:30 Acetaminophen (Tylenol Tab) 650 mg Q6H PRN PO PAIN AND OR ELEVATED TEMP; Start 12/02/16 at 23:30 Docusate Sodium (Colace) 100 mg BID PO Last administered on 12/08/16 08:38; Admin Dose 100 MG; Start 12/03/16 at 09:00 Hydralazine HCl (Apresoline) 10 mg Q6H PRN IV ELEVATED SYSTOLIC BP; Start 12/02 at 23:30 Pantoprazole (Protonix Tab) 40 mg DAILY@06 PO Last administered on 12/08/16 06 :09; Admin Dose 40 MG; Start 12/03/16 at 06:00 Zolpidem Tartrate (Ambien) 5 mg HS PRN PO INSOMNIA; Start 12/02/16 at 23:30 Benazepril HCl (Lotensin) 10 mg DAILY PO Last administered on 12/07/16 08:26; Admin Dose 10 MG; Start 12/04/16 at 09:00; Status Future Hold Insulin Glargine 25 unit 25 unit DAILY SC Last administered on 12/07/16 07:59 ; Admin Dose 25 UNIT; Start 12/06/16 at 09:00 Piperacillin Sod/ Tazobactam Sod 50 ml @ 100 mls/hr Q6 IVPB Last administered on 12/08/16 06:09; Admin Dose 100 MLS/HR; Start 12/07/16 at 12:00 Sodium Chloride (1/2 NS) 1,000 ml @ 70 mls/hr [id number] IV Last administered on 12/07/16 12:17; Admin Dose 70 MLS/HR; Start 12/07/16 at 12:30 Collagenase (Santyl) 1 applic DAILY TOP Last administered on 12/08/16 08:38; Admin Dose 1 APPLIC; Start 12/07/16 at 16:00 CHRISTY LOPEZ M.D. Dec 08, 2016 09:28
[2016-12-08] MEDS: MECLIZINE 25 MG TAB PO PRN (10:04)
[2016-12-08] MEDS: INSULIN GLARGINE [LANtus] 3 ML PEN SC SCH (10:04)
--- NOTE | 2016-12-08 17:18 | CONS ---
Date/Time of Note Date/Time of Note DATE: 12/08/16 TIME: 17:05 Assessment/Plan Assessment/Plan Additional Assessment/Plan 1. Acute kidney injury with a creatinine 2.06, likely secondary to acute tubular necrosis from a vancomycin induced nephrotoxicity with a vancomycin level of 22.2. 2. Left foot diabetic ulcer/cellulitis currently on IV antibiotics, Zosyn and vancomycin. 3. History of diabetes mellitus, insulin-dependent with lower extremity neuropathy. 4. History of hypertension. 5. History of aortic stenosis with diastolic dysfunction with ejection fraction 60% on echocardiogram. PLAN: WBC 6.5 Creatinine bumped to 4.66 BP stable afebrile Metformin and benazepril has been discontinued yesterday, Expecting Cr to improve will follow up Consultation Date/Type/Reason Admit Date/Time Dec 02, 2016 at 21:01 Initial Consult Date 12/07/16 Type of Consultation: NEPHROLGOY Reason for Consultation acute kidney injury Referring Provider: VIET PARKER MD 24 HR Interval Summary Free Text/Dictation Cr bumped to 4.66, BP stable,making good urine output Exam/Review of Systems Vital Signs Vitals Vital Signs Date Time Temp Pulse Resp B/P Pulse Ox O2 Delivery O2 Flow Rate FiO2 12/08/16 10:13 74 135/72 12/08/16 07:25 98.7 18 90 Intake and Output 12/07/16 12/07/16 12/08/16 15:00 23:00 07:00 Intake Total 30 ml 1450 ml 1450 ml Balance 30 ml 1450 ml 1450 ml Exam GENERAL: Awake, alert, in no distress. HEENT: Normal. Oropharynx clear. NECK: Supple, no JVD, no lymphadenopathy. LUNGS: Clear to auscultation. No crackles, no wheezes. HEART: S1, S2, with regular rhythm, no murmur. ABDOMEN: Soft, nontender, nondistended. Bowel sounds are present. EXTREMITIES: No clubbing, cyanosis, or edema. Patient has a left foot diabetic ulcer with dressing on. Podiatry has been consulted in to evaluate the left foot ulcer for incision and drainage. NEUROLOGICAL: Nonfocal, intact. PSYCHIATRIC: Appropriate affect and mood. Results Result Diagram: 12/07/16 0320 12/08/16 0440 Results 24 hrs Laboratory Tests Test 12/07/16 17:26 12/07/16 20:13 12/08/16 04:40 12/08/16 07:53 Bedside Glucose 148 175 145 Blood Urea Nitrogen 28 #H Creatinine 4.66 #H Uric Acid 5.6 Creatine Kinase 26 Random Vancomycin Level 18.9 Test 12/08/16 09:58 12/08/16 12:07 Bedside Glucose 149 200 Medications Medications Current Medications Diagnostic Test (Pha) (Accu-Chek) 1 ea 02 XX ; Start 12/03/16 at 02:00 Ondansetron HCl (Zofran Inj) 4 mg Q6H PRN IV NAUSEA AND/OR VOMITING; Start at 22:30 Miscellaneous Information 1 ea NOTE XX ; Start 12/02/16 at 23:00 Glucose (Glutose) 15 gm Q15M PRN PO DECREASED GLUCOSE; Start 12/02/16 at 23:00 Glucose (Glutose) 22.5 gm Q15M PRN PO DECREASED GLUCOSE; Start 12/02/16 at 23: 00 Dextrose (D50w Syringe) 25 ml Q15M PRN IV DECREASED GLUCOSE; Start 12/02/16 at 23:00 Dextrose (D50w Syringe) 50 ml Q15M PRN IV DECREASED GLUCOSE; Start 12/02/16 at 23:00 Glucagon (Glucagen) 1 mg Q15M PRN IM DECREASED GLUCOSE; Start 12/02/16 at 23:00 Glucose (Glutose) 15 gm Q15M PRN BUCCAL DECREASED GLUCOSE; Start 12/02/16 at 23 :00 Aspirin (Halfprin) 81 mg DAILY PO Last administered on 12/08/16 08:38; Admin Dose 81 MG; Start 12/03/16 at 09:00 Gabapentin (Neurontin) 800 mg TID PO Last administered on 12/08/16 13:09; Admin Dose 800 MG; Start 12/03/16 at 09:00 Meclizine HCl (Antivert) 25 mg TID PRN PO dizziness Last administered on 10:04; Admin Dose 25 MG; Start 12/02/16 at 23:00 Terazosin HCl (Hytrin) 5 mg HS PO Last administered on 12/07/16 20:28; Admin Dose 5 MG; Start 12/03/16 at 21:00 Enoxaparin Sodium (Lovenox) 30 mg DAILY SC Last administered on 12/08/16 08:40 ; Admin Dose 30 MG; Start 12/03/16 at 09:00 Acetaminophen/ Hydrocodone Bitart ([place] (5/325)) 1 tab Q6H PRN PO PAIN LEVEL 4 -7; Start 12/02/16 at 23:30 Acetaminophen (Tylenol Tab) 650 mg Q6H PRN PO PAIN AND OR ELEVATED TEMP; Start 12/02/16 at 23:30 Docusate Sodium (Colace) 100 mg BID PO Last administered on 12/08/16 08:38; Admin Dose 100 MG; Start 12/03/16 at 09:00 Hydralazine HCl (Apresoline) 10 mg Q6H PRN IV ELEVATED SYSTOLIC BP; Start 12/02 at 23:30 Pantoprazole (Protonix Tab) 40 mg DAILY@06 PO Last administered on 12/08/16 06 :09; Admin Dose 40 MG; Start 12/03/16 at 06:00 Zolpidem Tartrate (Ambien) 5 mg HS PRN PO INSOMNIA; Start 12/02/16 at 23:30 Benazepril HCl (Lotensin) 10 mg DAILY PO Last administered on 12/07/16 08:26; Admin Dose 10 MG; Start 12/04/16 at 09:00; Status Future Hold Insulin Glargine 25 unit 25 unit DAILY SC Last administered on 12/08/16 10:04 ; Admin Dose 25 UNIT; Start 12/06/16 at 09:00 Sodium Chloride (1/2 NS) 1,000 ml @ 70 mls/hr [id number] IV Last administered on 12/08/16 10:05; Admin Dose 70 MLS/HR; Start 12/07/16 at 12:30 Collagenase 1 applic 1 applic DAILY TOP Last administered on 12/08/16 08:38; Admin Dose 1 APPLIC; Start 12/07/16 at 16:00 Piperacillin Sod/ Tazobactam Sod (Zosyn 2.25gm/ 50ml (Pmx)) 50 ml @ 100 mls/hr Q8 IVPB Last administered on 12/08/16 13:09; Admin Dose 100 MLS/HR; Start at 14:00 TASHIA MCGARRY MD Dec 08, 2016 17:15
--- NOTE | 2016-12-08 18:32 | PN ---
Date/Time of Note Date/Time of Note DATE: 12/08/16 TIME: 18:27 Assessment/Plan VTE Prophylaxis VTE Prophylaxis Intervention: SCD's Lines/Catheters IV Catheter Type (from [facility]): Saline Lock Urinary Cath still in place: No Assessment/Plan Chief Complaint/Hosp Course Assessment/Plan - Diabetic foot ulcer of the left foot, Dr Lin is following in podiatry consultation. - Cellulitis of left foot, 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 and left fourth proximal phalanx per bone scan, continue antibiotics, Dr. Pascual is following in infection disease consultation. Continue antibiotics per ID. - IDDM, continue metformin and Lantus and pre-meal NovoLog. - Aortic stenosis - Diastolic dysfunction congestive heart failure with preserved ejection fraction of 60%. - Hypertension, continue benazepril. - ARANZA, most likely Vanco induced, continue IVF. Dr. Remy, nephrology consultation is appreciated. Further recommendations based on clinical course. Plan of care discussed with Dr. Heredia. Problems: Subjective 24 Hr Interval Summary Free Text/Dictation Patient was increased creatinine today, continued on IV fluids, denies any pain. Exam/Review of Systems Vital Signs Vitals Vital Signs Date Time Temp Pulse Resp B/P Pulse Ox O2 Delivery O2 Flow Rate FiO2 12/08/16 10:13 74 135/72 12/08/16 07:25 98.7 18 90 Intake and Output 12/07/16 12/07/16 12/08/16 15:00 23:00 07:00 Intake Total 30 ml 1450 ml 1450 ml Balance 30 ml 1450 ml 1450 ml Exam Constitutional: alert, oriented Psych: no complaints Head: atraumatic, normocephalic Eyes: nl conjunctiva ENMT: nl external ears & nose Neck: non-tender, supple Respiratory: clear to auscultation, normal air movement Cardiovascular: nl pulses, regular rate and rhythm, systolic murmur Gastrointestinal: non-tender, soft Genitourinary - Male: nl penis Musculoskeletal: nl extremities to inspection Extremities: normal pulses Neurological: CONTRACT LEAD II-XII intact Skin: nl turgor, left big toe ulcer. Results Result Diagram: 12/07/16 0320 12/08/16 0440 Results 24 hrs Laboratory Tests Test 12/07/16 20:13 12/08/16 04:40 12/08/16 07:53 12/08/16 09:58 Bedside Glucose 175 145 149 Blood Urea Nitrogen 28 #H Creatinine 4.66 #H Uric Acid 5.6 Creatine Kinase 26 Random Vancomycin Level 18.9 Test 12/08/16 12:07 12/08/16 17:44 Bedside Glucose 200 203 Medications Medications Current Medications Diagnostic Test (Pha) (Accu-Chek) 1 ea 02 XX ; Start 12/03/16 at 02:00 Ondansetron HCl (Zofran Inj) 4 mg Q6H PRN IV NAUSEA AND/OR VOMITING; Start at 22:30 Miscellaneous Information 1 ea NOTE XX ; Start 12/02/16 at 23:00 Glucose (Glutose) 15 gm Q15M PRN PO DECREASED GLUCOSE; Start 12/02/16 at 23:00 Glucose (Glutose) 22.5 gm Q15M PRN PO DECREASED GLUCOSE; Start 12/02/16 at 23: 00 Dextrose (D50w Syringe) 25 ml Q15M PRN IV DECREASED GLUCOSE; Start 12/02/16 at 23:00 Dextrose (D50w Syringe) 50 ml Q15M PRN IV DECREASED GLUCOSE; Start 12/02/16 at 23:00 Glucagon (Glucagen) 1 mg Q15M PRN IM DECREASED GLUCOSE; Start 12/02/16 at 23:00 Glucose (Glutose) 15 gm Q15M PRN BUCCAL DECREASED GLUCOSE; Start 12/02/16 at 23 :00 Aspirin (Halfprin) 81 mg DAILY PO Last administered on 12/08/16 08:38; Admin Dose 81 MG; Start 12/03/16 at 09:00 Gabapentin (Neurontin) 800 mg TID PO Last administered on 12/08/16 13:09; Admin Dose 800 MG; Start 12/03/16 at 09:00 Meclizine HCl (Antivert) 25 mg TID PRN PO dizziness Last administered on 10:04; Admin Dose 25 MG; Start 12/02/16 at 23:00 Terazosin HCl (Hytrin) 5 mg HS PO Last administered on 12/07/16 20:28; Admin Dose 5 MG; Start 12/03/16 at 21:00 Enoxaparin Sodium (Lovenox) 30 mg DAILY SC Last administered on 12/08/16 08:40 ; Admin Dose 30 MG; Start 12/03/16 at 09:00 Acetaminophen/ Hydrocodone Bitart ([place] (5/325)) 1 tab Q6H PRN PO PAIN LEVEL 4 -7; Start 12/02/16 at 23:30 Acetaminophen (Tylenol Tab) 650 mg Q6H PRN PO PAIN AND OR ELEVATED TEMP; Start 12/02/16 at 23:30 Docusate Sodium (Colace) 100 mg BID PO Last administered on 12/08/16 08:38; Admin Dose 100 MG; Start 12/03/16 at 09:00 Hydralazine HCl (Apresoline) 10 mg Q6H PRN IV ELEVATED SYSTOLIC BP; Start 12/02 at 23:30 Pantoprazole (Protonix Tab) 40 mg DAILY@06 PO Last administered on 12/08/16 06 :09; Admin Dose 40 MG; Start 12/03/16 at 06:00 Zolpidem Tartrate (Ambien) 5 mg HS PRN PO INSOMNIA; Start 12/02/16 at 23:30 Benazepril HCl (Lotensin) 10 mg DAILY PO Last administered on 12/07/16 08:26; Admin Dose 10 MG; Start 12/04/16 at 09:00; Status Future Hold Insulin Glargine 25 unit 25 unit DAILY SC Last administered on 12/08/16 10:04 ; Admin Dose 25 UNIT; Start 12/06/16 at 09:00 Sodium Chloride (1/2 NS) 1,000 ml @ 70 mls/hr [id number] IV Last administered on 12/08/16 10:05; Admin Dose 70 MLS/HR; Start 12/07/16 at 12:30 Collagenase 1 applic 1 applic DAILY TOP Last administered on 12/08/16 08:38; Admin Dose 1 APPLIC; Start 12/07/16 at 16:00 Piperacillin Sod/ Tazobactam Sod (Zosyn 2.25gm/ 50ml (Pmx)) 50 ml @ 100 mls/hr Q8 IVPB Last administered on 12/08/16 13:09; Admin Dose 100 MLS/HR; Start at 14:00 KIMBERLY NOYOLA Dec 08, 2016 18:31
--- NOTE | 2016-12-08 20:00 | PN ---
Date/Time of Note Date/Time of Note DATE: 12/08/16 TIME: 19:51 Assessment/Plan Lines/Catheters IV Catheter Type (from [facility]): Saline Lock [place] in Place (from [facility]): No Assessment/Plan Chief Complaint/Hosp Course -Bilateral lower extremity atherosclerosis with left first toe plantar ulcer: It seems the patient has developed a new first toe infection and diabetic foot ulcer which may be related to his fall over a week ago. His bilateral lower extremity noninvasive vascular studies demonstrated some infrapopliteal disease as the patient does not have palpable pedal pulses and has been a long time smoker. -Continue with antibiotics -No further vascular intervention for now. Will follow the wound progress and Dr. Lin will be involved in regards to wound care and possible debridement -Optimize vascular status (BP meds, diet, nutrition, exercise, sugar control, antiplatelets, weight loss). -Discussed smoking cessation with the patient and he understands. 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 -Thank you for allowing us to partake in the care of your patient. Please call with any questions. Problems: Subjective 24 Hr Interval Summary no new vascular events overnight Exam/Review of Systems Vital Signs Vitals Vital Signs Date Time Temp Pulse Resp B/P Pulse Ox O2 Delivery O2 Flow Rate FiO2 12/08/16 10:13 74 135/72 12/08/16 07:25 98.7 18 90 Intake and Output 12/07/16 12/07/16 12/08/16 15:00 23:00 07:00 Intake Total 30 ml 1450 ml 1450 ml Balance 30 ml 1450 ml 1450 ml Exam Free Text/Dictation GENERAL: Alert and oriented x3, PULMONARY: Clear to auscultation bilaterally CARDIOVASCULAR: S1, S2 present ABDOMEN: Soft, nontender, nondistended. Bowel sounds positive. EXTREMITIES: Right lower extremity: Palpable femoral pulse, nonpalpable pedal pulse. Motor , sensory intact. Cap refill 3 to 4 seconds. No ulcers identified. Left lower extremity: Palpable femoral pulse, nonpalpable pedal pulse. Motor and sensory intact. Cap refill 3 to 4 seconds. First toe with erythema and edema about 1+ improving. There is a plantar ulcer at the base of the 1st metatarsal with callus and erythema. No drainage Results Result Diagram: 12/07/16 0320 12/08/16 0440 KAROLINE SHOEMAKER MD Dec 08, 2016 19:59
[2016-12-08] MEDS: TERAZOSIN 5 MG CAP PO SCH (20:53)
[2016-12-08] MEDS ORDERED: SOD CHLORIDE 0.9% 1,000 ML IV ONE (21:30)
[2016-12-08] MEDS ORDERED: SOD CHLORIDE 0.9% 250 ML IV ONE (21:30)
--- NOTE | 2016-12-08 23:01 | CONS ---
Date/Time of Note Date/Time of Note DATE: 12/08/16 TIME: 23:01 Assessment/Plan Assessment/Plan Problems: (1) Non-pressure chronic ulcer of other part of left foot with fat layer exposed (2) Diabetes, polyneuropathy (3) Peripheral vascular disease (4) Cellulitis of left foot Status: Acute Additional Assessment/Plan This is a 66-year-old male patient with cellulitis of left hallux with open wound. Patient's prognosis is guarded. Patient is compliant with current treatment plan. 1. Monitor patient in-house 2. Dry dressing change daily 3. Continue IV antibiotics 4. Nonweightbearing left foot 5. Patient will be followed in-house Discharge planning: hold d/c Consultation Date/Type/Reason Admit Date/Time Dec 02, 2016 at 21:01 Date of Consultation: Dec 08, 2016 Type of Consultation: Foot and ankle surgery Reason for Consultation Foot and ankle evaluation Hx of Present Illness Thank you for involving me in the care of this patient. As you very well this is a 66-year-old male patient with multiple medical problems including diabetes mellitus who was admitted to [facility] for pain in the left big toe for about a week. I was consulted for evaluation and treatment. He reports that he bruised his left big toe. He started noticing "blisters" on the bottom of his left big toe. Patient has been given Augmentin by his primary physician but the condition has not improved apparently. Constitutional: no complaints, other (Pt showed two thumbs up) Eyes: no complaints ENT: no complaints Respiratory: no complaints Cardiovascular: no complaints Gastrointestinal: no complaints Genitourinary: no complaints Skin: skin lesions (L 1st toe, plantar and dorsal) Neurologic: no complaints Endocrine: no complaints Lymphatic: no complaints Psychological: nl mood/affect, no complaints Immunologic: no complaints Past Medical History As per history of present illness. Past Surgical History As per history of present illness. Social History Smoking Status: Former smoker Exam/Review of Systems Vital Signs Vitals Vital Signs Date Time Temp Pulse Resp B/P Pulse Ox O2 Delivery O2 Flow Rate FiO2 12/08/16 22:31 88 107/52 95 Nasal Cannula 2.0 12/08/16 21:28 98.0 16 Intake and Output 12/07/16 12/07/16 12/08/16 15:00 23:00 07:00 Intake Total 30 ml 1450 ml 1450 ml Balance 30 ml 1450 ml 1450 ml Exam GENERAL APPEARANCE: Patient is in no acute distress laying supine in bed VASCULAR EXAM: Dorsalis pedis and posterior tibial pulse nonpalpable bilateral. Delayed capillary filling time noted on exam. Normal temperature gradient noted on exam. Left hallux edema noted. No varicose veins noted on examination NEUROLOGICAL EXAM: Protective sensation is diminished to sharp, dull, vibratory and temperature stimuli bilaterally. Normal deep tendon reflexes noted. Negative Tinel sign on examination of bilateral lower extremity DERMATOLOGICAL EXAM: Open wound present plantar left hallux with black eschar present and surrounding hyperkeratosis. The hallux is edematous with erythema. There seems to be a subcutaneous hematoma present. No pus noted and no bleeding present. The toe is erythematous and nontender to exam MUSCULOSKELETAL EXAM: No tenderness to examination. Planus foot type noted. Contracted toes present IMAGING: Reviewed in chart LABS: Reviewed in chart Results Result Diagram: 12/07/16 0320 12/08/16 0440 Results 24 hrs Laboratory Tests Test 12/08/16 04:40 12/08/16 07:53 12/08/16 09:58 12/08/16 12:07 Blood Urea Nitrogen 28 #H Creatinine 4.66 #H Uric Acid 5.6 Creatine Kinase 26 Random Vancomycin Level 18.9 Bedside Glucose 145 149 200 Test 12/08/16 17:44 12/08/16 18:40 12/08/16 20:28 Bedside Glucose 203 180 229 H Medications Medications Current Medications Diagnostic Test (Pha) (Accu-Chek) 1 ea 02 XX ; Start 12/03/16 at 02:00 Ondansetron HCl (Zofran Inj) 4 mg Q6H PRN IV NAUSEA AND/OR VOMITING; Start at 22:30 Miscellaneous Information 1 ea NOTE XX ; Start 12/02/16 at 23:00 Glucose (Glutose) 15 gm Q15M PRN PO DECREASED GLUCOSE; Start 12/02/16 at 23:00 Glucose (Glutose) 22.5 gm Q15M PRN PO DECREASED GLUCOSE; Start 12/02/16 at 23: 00 Dextrose (D50w Syringe) 25 ml Q15M PRN IV DECREASED GLUCOSE; Start 12/02/16 at 23:00 Dextrose (D50w Syringe) 50 ml Q15M PRN IV DECREASED GLUCOSE; Start 12/02/16 at 23:00 Glucagon (Glucagen) 1 mg Q15M PRN IM DECREASED GLUCOSE; Start 12/02/16 at 23:00 Glucose (Glutose) 15 gm Q15M PRN BUCCAL DECREASED GLUCOSE; Start 12/02/16 at 23 :00 Aspirin (Halfprin) 81 mg DAILY PO Last administered on 12/08/16 08:38; Admin Dose 81 MG; Start 12/03/16 at 09:00 Gabapentin (Neurontin) 800 mg TID PO Last administered on 12/08/16 20:33; Admin Dose 800 MG; Start 12/03/16 at 09:00 Meclizine HCl (Antivert) 25 mg TID PRN PO dizziness Last administered on 10:04; Admin Dose 25 MG; Start 12/02/16 at 23:00 Terazosin HCl (Hytrin) 5 mg HS PO Last administered on 12/07/16 20:28; Admin Dose 5 MG; Start 12/03/16 at 21:00 Enoxaparin Sodium (Lovenox) 30 mg DAILY SC Last administered on 12/08/16 08:40 ; Admin Dose 30 MG; Start 12/03/16 at 09:00 Acetaminophen/ Hydrocodone Bitart ([place] (5/325)) 1 tab Q6H PRN PO PAIN LEVEL 4 -7; Start 12/02/16 at 23:30 Acetaminophen (Tylenol Tab) 650 mg Q6H PRN PO PAIN AND OR ELEVATED TEMP; Start 12/02/16 at 23:30 Docusate Sodium (Colace) 100 mg BID PO Last administered on 12/08/16 20:32; Admin Dose 100 MG; Start 12/03/16 at 09:00 Hydralazine HCl (Apresoline) 10 mg Q6H PRN IV ELEVATED SYSTOLIC BP; Start 12/02 at 23:30 Pantoprazole (Protonix Tab) 40 mg DAILY@06 PO Last administered on 12/08/16 06 :09; Admin Dose 40 MG; Start 12/03/16 at 06:00 Zolpidem Tartrate (Ambien) 5 mg HS PRN PO INSOMNIA; Start 12/02/16 at 23:30 Benazepril HCl (Lotensin) 10 mg DAILY PO Last administered on 12/07/16 08:26; Admin Dose 10 MG; Start 12/04/16 at 09:00; Status Future Hold Insulin Glargine 25 unit 25 unit DAILY SC Last administered on 12/08/16 10:04 ; Admin Dose 25 UNIT; Start 12/06/16 at 09:00 Sodium Chloride (1/2 NS) 1,000 ml @ 70 mls/hr [id number] IV Last administered on 12/08/16 22:29; Admin Dose 70 MLS/HR; Start 12/07/16 at 12:30 Collagenase 1 applic 1 applic DAILY TOP Last administered on 12/08/16 08:38; Admin Dose 1 APPLIC; Start 12/07/16 at 16:00 Piperacillin Sod/ Tazobactam Sod 50 ml @ 100 mls/hr Q8 IVPB Last administered on 12/08/16 22:30; Admin Dose 100 MLS/HR; Start 12/08/16 at 14:00 Vancomycin HCl/ Sodium Chloride (Vancocin/NS) 150 ml @ 75 mls/hr ONCE IVPB ; Start 12/09/16 at 16:00; Stop 12/09/16 at 17:59 YEIMI LIZARRAGA DPM Dec 08, 2016 23:01
[2016-12-09] VITALS (42 sets, daily range): BP systolic 78–196; BP diastolic 51–168; PULSE 72–136; RESP 17–27
[2016-12-09] MEDS: ACCU-CHEK XX SCH (02:00)
[2016-12-09] MEDS: PIPER-TAZO 2.25 GM (PMX) 50 ML IVPB SCH ×3 (05:25→20:29)
[2016-12-09] MEDS: PANTOPRAZOLE (EC) 40 MG TAB PO SCH (05:25)
[2016-12-09 05:49] LABS: ADD SCAN DIFF NO
[2016-12-09 05:57] LABS: BASOPHILS % 0.4 % (0.0-2.0); EOSINOPHILS % 0.4 % (0.0-7.0); HEMATOCRIT 29.2 % (42.0-52.0); HEMOGLOBIN 9.4 g/dl (14.0-18.0); LYMPHOCYTES # 0.9 10^3/ul (0.8-2.9); LYMPHOCYTES % 11.5 % (15.0-51.0); MEAN CORPUSCULAR HGB CONC 32.2 g/dl (32.0-37.0); MEAN CORPUSCULAR VOLUME 99.3 fl (82.0-101.0); MEAN PLATELET VOLUME 10.8 fl (7.4-10.4); MONOCYTE # 0.9 10^3/ul (0.3-0.9); NEUTROPHIL # 5.9 10^3/ul (1.6-7.5); NEUTROPHILS % 75.8 % (39.0-77.0); PLATELET COUNT 137 10^3/UL (140-415); RED BLOOD COUNT 2.94 10^6/ul (4.70-6.10); RED CELL DISTRIBUTION WIDTH 12.8 % (11.5-14.5); WHITE BLOOD COUNT 7.8 10^3/ul (4.8-10.8)
[2016-12-09 06:10] LABS: POTASSIUM 4.6 mmol/L (3.5-5.1)
[2016-12-09 06:12] LABS: CREATININE 7.12 mg/dl (0.61-1.24)
[2016-12-09 06:13] LABS: CALCIUM 6.9 mg/dl (8.4-10.2)
[2016-12-09] MEDS ORDERED: SUCCINYLCHOLINE CHLORIDE 100 MG/5 ML SYG IV ONE (07:00)
[2016-12-09] MEDS ORDERED: NA BICARBONATE 8.4% 50 ML SYG ONE (07:00)
[2016-12-09] MEDS ORDERED: ETOMIDATE 20 MG INJ ONE (07:00)
[2016-12-09] MEDS: INSULIN ASPART [NOVOLOG] 3 ML PEN SC SCH ×7 (08:15→21:00)
[2016-12-09] MEDS: DOCUSATE SODIUM 100 MG CAP PO SCH ×2 (08:17→09:00)
[2016-12-09] MEDS: ENOXAPARIN 30 MG/0.3 ML SYG SC SCH (08:17)
[2016-12-09] MEDS: ASPIRIN (EC) 81 MG TAB PO SCH ×2 (08:17→09:00)
[2016-12-09] MEDS: GABAPENTIN 400 MG CAP PO SCH ×3 (08:17→13:00)
[2016-12-09] MEDS: INSULIN GLARGINE [LANtus] 3 ML PEN SC SCH (08:24)
[2016-12-09] MEDS: COLLAGENASE 30 GM TUBE TOP SCH ×2 (08:25→10:26)
--- NOTE | 2016-12-09 09:04 | QN ---
Documentation Comment I was called to the second floor for a CODE BLUE. When I entered the room I saw patient that was nonresponsive and was being ventilated via a bag valve mask. This patient had a pulse of 140 bpm. His nurse stated that this patient was complaining of dizziness and then went unresponsive. CPR was started. No medications were given, and the patient did have return of spontaneous circulation with less than 1 minute of compressions. When I evaluated this patient he was mildly cyanotic and was in respiratory distress. The decision was made to intubate this patient. Please see intubation note. This patient was subsequently transferred to the intensive care unit. No signs of ST elevation on monitor. Patient is hemodynamically stable, no need for central line. This patient's primary care physician was notified. Endotracheal Intubation by me: Pre assessment performed. See preceding note for details. Pre-oxygenation performed with 100% oxygen RSI: Performed w/o complication or hypoxic events. Medications as ordered. Blade: [Mac 4] ET Tube: 7.5] cm Depth: 22 cm at the lip Intubation confirmed by colorimetric CO2, equal breath sounds, quiet over the stomach. Chest X-ray 1V Interpreted by me: 3 cm above the dorinda ET tube. Normal soft tissue, No pneumothorax. NATHAN MULLINS DO Dec 09, 2016 09:04
[2016-12-09] MEDS ORDERED: LIDOCAINE 1% (MPF) 5 ML VIAL SC ONE (09:30)
[2016-12-09 10:14] LABS: AADO2 Arterial 351.5 mmHg (7.0-24.0); Allen Test ACCEPTAB; Arterial Base Excess -7.4 mmol/L (-3.0-3); Arterial COHb 0.3 % (0.0-3.0); Arterial Fraction of Oxyhgb 96.4 % (93.0-99.0); Arterial HCO3 18.9 mmol/L (22.0-26.0); Arterial MetHb 0.3 % (0.0-1.5); Arterial Total Hemglobin 11.4 g/dl (12.0-18.0); MODE VENT - AC
--- NOTE | 2016-12-09 10:47 | CONS ---
DATE OF ADMISSION: 12/02/2016 DATE OF CONSULTATION: TYPE OF CONSULTATION: CRITICAL CARE REASON FOR CONSULTATION: Respiratory failure. HISTORY OF PRESENT ILLNESS: This is a 66-year-old gentleman originally admitted on 12/02/2016 for m anagement of diabetic foot with underlying cellulitis. This morning he became dizzy unresponsive an d apparently lost circulation requiring emergent intubation and mechanical ventilation and subsequen tly transferred to the intensive care unit. Here he is awake, alert, on mechanical ventilation, sasha ears hemodynamically stable. PAST MEDICAL HISTORY: Diabetes, hypertension, hyperlipidemia, peripheral vascular disease. MEDICATIONS: Per chart. ALLERGIES: NONE. SOCIAL HISTORY: Nonsmoker, no alcohol, no history of drug use. FAMILY HISTORY: Noncontributory. SYSTEMS REVIEW: A 12-point review of systems currently unable to perform. PHYSICAL EXAMINATION: GENERAL: Elderly [place] gentleman, intubated on mechanical ventilation, appears comfortable at [facility], no acute distress. VITAL SIGNS: Currently afebrile, temperature 98, pulse 100, blood pressure 112/60, O2 saturation 96 % on FIO2 of 100%. NECK: Supple. No JVD or lymphadenopathy. CARDIAC: S1, S2, no added sounds or murmurs. CHEST: Diminished air entry bilaterally. ABDOMEN: Soft, nontender. No guarding or rebound. EXTREMITIES: No cyanosis, clubbing, edema. NEUROLOGIC: Generalized weakness, but no focal deficits. LABORATORY DATA: White count 7.8, hemoglobin 9.4, platelets 137. BUN 38, creatinine 7.12. ABG: p H 7.27, pCO2 of 41, PaO2 of 102, bicarbonate was 18. IMPRESSION AND PLAN: 1. Acute kidney injury. 2. Acute renal failure with worsening creatinine. 3. Hypoxemic respiratory failure. 4. Hypercapnic respiratory failure. The patient will require 1. Continued mechanical ventilation. 2. Renal recommendations. 3. Pulmonary toilet. 4. DVT and GI prophylaxis. Dictated By: AUDELIA RODRIGUEZ/MICHELLE Conf#: [id number] DID#: [id number]
--- NOTE | 2016-12-09 11:09 | CONS ---
Date/Time of Note Date/Time of Note DATE: 12/09/16 TIME: 11:04 Assessment/Plan Assessment/Plan Additional Assessment/Plan 1. Acute kidney injury 2/2 ATN- worsenign renal failure with pt becomes anuric 2. acute resp failure intubated on ventilator 2. Left foot diabetic ulcer/cellulitis currently on IV antibiotics, Zosyn and vancomycin. 3. History of diabetes mellitus, insulin-dependent with lower extremity neuropathy. 4. History of hypertension. 5. History of aortic stenosis with diastolic dysfunction with ejection fraction 60% on echocardiogram. PLAN: pt gets intubated for resp distress, Bp stable, afebrile, pt is alert awake but BUN/Cr rising , anuric had a discussion with family and son at bedside agreed for HD support will paln for abhay and HD today and tomorrow BP stable will follow up Consultation Date/Type/Reason Admit Date/Time Dec 02, 2016 at 21:01 Initial Consult Date 12/07/16 Type of Consultation: NEPHROLGOY Reason for Consultation acute kidney injury Referring Provider: VIET PARKER MD 24 HR Interval Summary Free Text/Dictation pt gets intubated for resp distress, Bp stable, afebrile, pt is alert awake but BUN/Cr rising , anuric Exam/Review of Systems Vital Signs Vitals Vital Signs Date Time Temp Pulse Resp B/P Pulse Ox O2 Delivery O2 Flow Rate FiO2 12/09/16 09:30 102 12/09/16 08:20 98.6 18 112/61 93 12/09/16 01:45 Nasal Cannula 2.0 Intake and Output 12/08/16 12/08/16 12/09/16 15:00 23:00 07:00 Intake Total 140 ml 2650 ml 810 ml Balance 140 ml 2650 ml 810 ml Exam GENERAL: intubated on ventilator HEENT: Normal. Oropharynx clear. NECK: + JVD LUNGS: bilateral basilar crackles HEART: S1, S2, with regular rhythm, no murmur. ABDOMEN: Soft, nontender, nondistended. Bowel sounds are present. EXTREMITIES: left foot dressing in place, + Molina catheter in place NEUROLOGICAL: not able to assess Results Result Diagram: 12/09/16 0525 12/09/16 0525 Results 24 hrs Laboratory Tests Test 12/08/16 12:07 4/26/17 17:44 12/08/16 18:40 12/08/16 20:28 Bedside Glucose 200 203 180 229 H Test 12/09/16 01:44 12/09/16 05:25 12/09/16 08:08 12/09/16 08:39 Bedside Glucose 222 H 187 211 White Blood Count 7.8 Red Blood Count 2.94 L Hemoglobin 9.4 L Hematocrit 29.2 L Mean Corpuscular Volume 99.3 Mean Corpuscular Hemoglobin 32.0 Mean Corpuscular Hemoglobin Concent 32.2 Red Cell Distribution Width 12.8 Platelet Count 137 L Mean Platelet Volume 10.8 H Neutrophils % 75.8 Lymphocytes % 11.5 L Monocytes % 11.0 Eosinophils % 0.4 Basophils % 0.4 Nucleated Red Blood Cells % 0.0 Neutrophils # 5.9 Lymphocytes # 0.9 Monocytes # 0.9 Eosinophils # 0.0 Basophils # 0.0 Nucleated Red Blood Cells # 0.0 Sodium Level 133 L Potassium Level 4.6 Chloride Level 102 Carbon Dioxide Level 20 L Anion Gap 16 Blood Urea Nitrogen 38 H Creatinine 7.12 #H Glucose Level 184 Calcium Level 6.9 L Test 12/09/16 09:47 Blood Gas Specimen Source Blood arterial Arterial Blood Date Drawn 12/09/2016 10:00:47 AM Arterial Blood pH (Temp corrected) 7.276 *L Arterial Blood pCO2 (Temp correct) 41.6 Arterial Blood pO2 (Temp corrected) 102.9 H Arterial Blood HCO3 18.9 L Arterial Blood Base Excess -7.4 L Arterial Blood Oxygen Saturation 97.0 Derek Test ACCEPTAB Arterial Blood Gas Puncture Site Right Radial Arterial Blood Carboxyhemoglobin 0.3 Arterial Blood Methemoglobin 0.3 Blood Gas A-a O2 Differential 351.5 H Oxyhemoglobin Percent 96.4 Total Hemoglobin 11.4 L Blood Gas Temperature 37.0 Blood Gas Respiration Rate 14.0 Blood Gas Actual Respiration Rate 20 Blood Gas Modality VENT - AC FiO2 70.0 Blood Gas Tidal Volume 500.0 Blood Gas Low PEEP Setting 5.0 Blood Gas Critical Value Read Back Philip IRWIN RN Blood Gas Notified Whom RDIX Blood Gas Notified Time 12/09/2016 10:12:17 AM Medications Medications Current Medications Diagnostic Test (Pha) (Accu-Chek) 1 ea 02 XX ; Start 12/03/16 at 02:00 Ondansetron HCl (Zofran Inj) 4 mg Q6H PRN IV NAUSEA AND/OR VOMITING; Start at 22:30 Miscellaneous Information 1 ea NOTE XX ; Start 12/02/16 at 23:00 Glucose (Glutose) 15 gm Q15M PRN PO DECREASED GLUCOSE; Start 12/02/16 at 23:00 Glucose (Glutose) 22.5 gm Q15M PRN PO DECREASED GLUCOSE; Start 12/02/16 at 23: 00 Dextrose (D50w Syringe) 25 ml Q15M PRN IV DECREASED GLUCOSE; Start 12/02/16 at 23:00 Dextrose (D50w Syringe) 50 ml Q15M PRN IV DECREASED GLUCOSE; Start 12/02/16 at 23:00 Glucagon (Glucagen) 1 mg Q15M PRN IM DECREASED GLUCOSE; Start 12/02/16 at 23:00 Glucose (Glutose) 15 gm Q15M PRN BUCCAL DECREASED GLUCOSE; Start 12/02/16 at 23 :00 Aspirin (Halfprin) 81 mg DAILY PO Last administered on 12/08/16 08:38; Admin Dose 81 MG; Start 12/03/16 at 09:00 Gabapentin (Neurontin) 800 mg TID PO Last administered on 12/08/16 20:33; Admin Dose 800 MG; Start 12/03/16 at 09:00 Meclizine HCl (Antivert) 25 mg TID PRN PO dizziness Last administered on 10:04; Admin Dose 25 MG; Start 12/02/16 at 23:00 Terazosin HCl (Hytrin) 5 mg HS PO Last administered on 12/07/16 20:28; Admin Dose 5 MG; Start 12/03/16 at 21:00 Enoxaparin Sodium (Lovenox) 30 mg DAILY SC Last administered on 12/09/16 08:17 ; Admin Dose 30 MG; Start 12/03/16 at 09:00 Acetaminophen/ Hydrocodone Bitart ([place] (5/325)) 1 tab Q6H PRN PO PAIN LEVEL 4 -7; Start 12/02/16 at 23:30 Acetaminophen (Tylenol Tab) 650 mg Q6H PRN PO PAIN AND OR ELEVATED TEMP; Start 12/02/16 at 23:30 Docusate Sodium (Colace) 100 mg BID PO Last administered on 12/08/16 20:32; Admin Dose 100 MG; Start 12/03/16 at 09:00 Hydralazine HCl (Apresoline) 10 mg Q6H PRN IV ELEVATED SYSTOLIC BP; Start 12/02 at 23:30 Pantoprazole (Protonix Tab) 40 mg DAILY@06 PO Last administered on 12/09/16 05 :25; Admin Dose 40 MG; Start 12/03/16 at 06:00 Zolpidem Tartrate (Ambien) 5 mg HS PRN PO INSOMNIA; Start 12/02/16 at 23:30 Benazepril HCl (Lotensin) 10 mg DAILY PO Last administered on 12/07/16 08:26; Admin Dose 10 MG; Start 12/04/16 at 09:00; Status Future Hold Insulin Glargine 25 unit 25 unit DAILY SC Last administered on 12/09/16 08:24 ; Admin Dose 25 UNIT; Start 12/06/16 at 09:00 Sodium Chloride (1/2 NS) 1,000 ml @ 70 mls/hr [id number] IV Last administered on 12/08/16 22:29; Admin Dose 70 MLS/HR; Start 12/07/16 at 12:30 Collagenase 1 applic 1 applic DAILY TOP Last administered on 12/09/16 10:26; Admin Dose 1 APPLIC; Start 12/07/16 at 16:00 Piperacillin Sod/ Tazobactam Sod 50 ml @ 100 mls/hr Q8 IVPB Last administered on 12/09/16 05:25; Admin Dose 100 MLS/HR; Start 12/08/16 at 14:00 Vancomycin HCl/ Sodium Chloride (Vancocin/NS) 150 ml @ 75 mls/hr ONCE IVPB ; Start 12/09/16 at 16:00; Stop 12/09/16 at 17:59 Lorazepam (Ativan) 2 mg Q2 PRN IV AGITATION/ANXIETY; Start 12/09/16 at 09:30 Morphine Sulfate (morphine) 2 mg Q2H PRN IV PAIN; Start 12/09/16 at 09:30 TASHIA MCGARRY MD Dec 09, 2016 11:09
[2016-12-09] MEDS ORDERED: VANCOMYCIN 750 MG in SOD CHLORIDE 0.9% 150 ML IVPB SCH (16:00)
--- NOTE | 2016-12-09 17:30 | CONS ---
Date/Time of Note Date/Time of Note DATE: 12/09/16 TIME: 17:27 Assessment/Plan Assessment/Plan Chief Complaint/Hosp Course assessment/impression - diabetic infection of L 1st toe/foot. 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 and left fourth proximal phalanx - DM - HTN recommendations: - lactic acid, blood cultures, urinalysis and urine culture ordered - continue pip/tazo, renally dosed. d/c vancomycin for now. - ultimately, Pt Pt needs 6 weeks of antibiotics to treat 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 and left fourth proximal phalanx: 2016 through 01/15/2017 management d/w Pt's , son and RN the critical care time I took to care for this Pt today was from 1620 to 1700 Problems: Consultation Date/Type/Reason Admit Date/Time Dec 02, 2016 at 21:01 Initial Consult Date 12/03/16 Type of Consultation: ID Referring Provider: VIET PARKER MD Exam/Review of Systems Vital Signs Vitals Vital Signs Date Time Temp Pulse Resp B/P Pulse Ox O2 Delivery O2 Flow Rate FiO2 12/09/16 17:00 102 21 120/64 100 Mechanical Ventilator 12/09/16 16:00 100.4 12/09/16 15:50 70 12/09/16 01:45 2.0 Intake and Output 12/08/16 12/08/16 12/09/16 15:00 23:00 07:00 Intake Total 140 ml 2650 ml 810 ml Balance 140 ml 2650 ml 810 ml Results Result Diagram: 12/09/16 0525 12/09/16 0525 Results 24 hrs Laboratory Tests Test 12/08/16 17:44 12/08/16 18:40 12/08/16 20:28 12/09/16 01:44 Bedside Glucose 203 180 229 H 222 H Test 12/09/16 05:25 12/09/16 08:08 12/09/16 08:39 12/09/16 09:47 White Blood Count 7.8 Red Blood Count 2.94 L Hemoglobin 9.4 L Hematocrit 29.2 L Mean Corpuscular Volume 99.3 Mean Corpuscular Hemoglobin 32.0 Mean Corpuscular Hemoglobin Concent 32.2 Red Cell Distribution Width 12.8 Platelet Count 137 L Mean Platelet Volume 10.8 H Neutrophils % 75.8 Lymphocytes % 11.5 L Monocytes % 11.0 Eosinophils % 0.4 Basophils % 0.4 Nucleated Red Blood Cells % 0.0 Neutrophils # 5.9 Lymphocytes # 0.9 Monocytes # 0.9 Eosinophils # 0.0 Basophils # 0.0 Nucleated Red Blood Cells # 0.0 Sodium Level 133 L Potassium Level 4.6 Chloride Level 102 Carbon Dioxide Level 20 L Anion Gap 16 Blood Urea Nitrogen 38 H Creatinine 7.12 #H Glucose Level 184 Calcium Level 6.9 L Bedside Glucose 187 211 Blood Gas Specimen Source Blood arterial Arterial Blood Date Drawn 12/09/2016 10:00:47 AM Arterial Blood pH (Temp corrected) 7.276 *L Arterial Blood pCO2 (Temp correct) 41.6 Arterial Blood pO2 (Temp corrected) 102.9 H Arterial Blood HCO3 18.9 L Arterial Blood Base Excess -7.4 L Arterial Blood Oxygen Saturation 97.0 Derek Test ACCEPTAB Arterial Blood Gas Puncture Site Right Radial Arterial Blood Carboxyhemoglobin 0.3 Arterial Blood Methemoglobin 0.3 Blood Gas A-a O2 Differential 351.5 H Oxyhemoglobin Percent 96.4 Total Hemoglobin 11.4 L Blood Gas Temperature 37.0 Blood Gas Respiration Rate 14.0 Blood Gas Actual Respiration Rate 20 Blood Gas Modality VENT - AC FiO2 70.0 Blood Gas Tidal Volume 500.0 Blood Gas Low PEEP Setting 5.0 Blood Gas Critical Value Read Back Philip IRWIN RN Blood Gas Notified Whom RDIX Blood Gas Notified Time 12/09/2016 10:12:17 AM Test 12/09/16 12:27 Bedside Glucose 172 Medications Medications Current Medications Diagnostic Test (Pha) (Accu-Chek) 1 ea 02 XX ; Start 12/03/16 at 02:00 Ondansetron HCl (Zofran Inj) 4 mg Q6H PRN IV NAUSEA AND/OR VOMITING; Start at 22:30 Miscellaneous Information 1 ea NOTE XX ; Start 12/02/16 at 23:00 Glucose (Glutose) 15 gm Q15M PRN PO DECREASED GLUCOSE; Start 12/02/16 at 23:00 Glucose (Glutose) 22.5 gm Q15M PRN PO DECREASED GLUCOSE; Start 12/02/16 at 23: 00 Dextrose (D50w Syringe) 25 ml Q15M PRN IV DECREASED GLUCOSE; Start 12/02/16 at 23:00 Dextrose (D50w Syringe) 50 ml Q15M PRN IV DECREASED GLUCOSE; Start 12/02/16 at 23:00 Glucagon (Glucagen) 1 mg Q15M PRN IM DECREASED GLUCOSE; Start 12/02/16 at 23:00 Glucose (Glutose) 15 gm Q15M PRN BUCCAL DECREASED GLUCOSE; Start 12/02/16 at 23 :00 Aspirin (Halfprin) 81 mg DAILY PO Last administered on 12/08/16 08:38; Admin Dose 81 MG; Start 12/03/16 at 09:00 Gabapentin (Neurontin) 800 mg TID PO Last administered on 12/08/16 20:33; Admin Dose 800 MG; Start 12/03/16 at 09:00 Meclizine HCl (Antivert) 25 mg TID PRN PO dizziness Last administered on 10:04; Admin Dose 25 MG; Start 12/02/16 at 23:00 Terazosin HCl (Hytrin) 5 mg HS PO Last administered on 12/07/16 20:28; Admin Dose 5 MG; Start 12/03/16 at 21:00 Enoxaparin Sodium (Lovenox) 30 mg DAILY SC Last administered on 12/09/16 08:17 ; Admin Dose 30 MG; Start 12/03/16 at 09:00 Acetaminophen/ Hydrocodone Bitart ([place] (5/325)) 1 tab Q6H PRN PO PAIN LEVEL 4 -7; Start 12/02/16 at 23:30 Acetaminophen (Tylenol Tab) 650 mg Q6H PRN PO PAIN AND OR ELEVATED TEMP; Start 12/02/16 at 23:30 Docusate Sodium (Colace) 100 mg BID PO Last administered on 12/08/16 20:32; Admin Dose 100 MG; Start 12/03/16 at 09:00 Hydralazine HCl (Apresoline) 10 mg Q6H PRN IV ELEVATED SYSTOLIC BP; Start 12/02 at 23:30 Pantoprazole (Protonix Tab) 40 mg DAILY@06 PO Last administered on 12/09/16 05 :25; Admin Dose 40 MG; Start 12/03/16 at 06:00 Zolpidem Tartrate (Ambien) 5 mg HS PRN PO INSOMNIA; Start 12/02/16 at 23:30 Benazepril HCl (Lotensin) 10 mg DAILY PO Last administered on 12/07/16 08:26; Admin Dose 10 MG; Start 12/04/16 at 09:00; Status Future Hold Insulin Glargine 25 unit 25 unit DAILY SC Last administered on 12/09/16 08:24 ; Admin Dose 25 UNIT; Start 12/06/16 at 09:00 Sodium Chloride (1/2 NS) 1,000 ml @ 70 mls/hr [id number] IV Last administered on 12/08/16 22:29; Admin Dose 70 MLS/HR; Start 12/07/16 at 12:30 Collagenase 1 applic 1 applic DAILY TOP Last administered on 12/09/16 10:26; Admin Dose 1 APPLIC; Start 12/07/16 at 16:00 Piperacillin Sod/ Tazobactam Sod (Zosyn 2.25gm/ 50ml (Pmx)) 50 ml @ 100 mls/hr Q8 IVPB Last administered on 12/09/16 14:25; Admin Dose 100 MLS/HR; Start at 14:00 Lorazepam (Ativan) 2 mg Q2 PRN IV AGITATION/ANXIETY; Start 12/09/16 at 09:30 Morphine Sulfate (morphine) 2 mg Q2H PRN IV PAIN; Start 12/09/16 at 09:30 Acetaminophen (Tylenol Supp) 650 mg Q6H PRN [place] ELEVATED TEMPERATURE; Start at 17:00 CHRISTY LOPEZ M.D. Dec 09, 2016 17:30
--- NOTE | 2016-12-09 17:30 | RADRPT ---
Vent Rate: 94 bpm RR Interval: 0 msec [place] Interval: 172 msec QRS Duration: 82 msec QT Interval: 356 msec QTC Interval: 445 msec P-R-T [place]: 70 - 70 - -59 degrees Sinus rhythm with premature atrial complexes T wave abnormality, consider inferolateral ischemia Abnormal ECG Electronically Signed By: Feroz Mena [id number]
[2016-12-09] MEDS: METOPROLOL 5 MG INJ IV PRN (17:53)
[2016-12-09] MEDS: ACETAMINOPHEN 650 MG SUPP PR PRN (17:53)
[2016-12-09] MEDS ORDERED: PHENYLephrine 20MG IN 250 ML 250 ML ONE (21:31)
[2016-12-09] MEDS: PHENYLephrine 40 MG in DEXTROSE 5% 496 ML IV SCH (21:37)
--- NOTE | 2016-12-09 21:46 | RADRPT ---
PROCEDURE: XR Chest. CLINICAL INDICATION: The patient is status post endotracheal intubation. TECHNIQUE: Single frontal view of the chest. COMPARISON: None. FINDINGS: Endotracheal intubation is seen with tip about 33 mm above the dorinda. Cardiomegaly. Dense right mid lung and lung base air space disease. Mild atelectasis versus airspa ce disease at the left lung base. No signs of pleural fluid or pneumothorax are seen. The osseous st ructures and soft tissues are unremarkable. IMPRESSION: Endotracheal intubation is seen with tip about 33 mm above the dorinda. RPTAT: [facility]U Physician Wilian Date Time Electronically viewed and signed by Physician Wilian on 12/09/2016 21:46 RS/
[2016-12-09] MEDS: SOD CHLORIDE 0.45% 1,000 ML IV SCH (22:49)
--- NOTE | 2016-12-09 23:09 | PN ---
Date/Time of Note Date/Time of Note DATE: 12/09/16 TIME: 18:58 Assessment/Plan VTE Prophylaxis VTE Prophylaxis Intervention: other Lines/Catheters [facility] H.D PIGTELL CATH Urinary Cath still in place: Yes Reason Cath still needed: urinary retention Assessment/Plan Assessment/Plan - SP CODE BLUE-icu monitoring - AFIB - cardiology consult- dr Cobian notified. - cont in icu - aspiration precautions. - Diabetic foot ulcer of the left foot, Dr Lin is following in podiatry consultation. - Cellulitis of left foot, 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 and left fourth proximal phalanx per bone scan, continue antibiotics, Dr. Pascual is following in infection disease consultation. Continue antibiotics per ID. - IDDM, continue metformin and Lantus and pre-meal NovoLog. - Aortic stenosis - Diastolic dysfunction congestive heart failure with preserved ejection fraction of 60%. - Hypertension, continue benazepril. - ARANZA, most likely Vanco induced, continue IVF. Dr. Remy, nephrology consultation is appreciated. Total critical care time spent = 30 mins. Further recommendations based on clinical course. Plan of care discussed with Dr. Heredia. Subjective 24 Hr Interval Summary Free Text/Dictation NAD, opens eyes, remains intubated, agitated at times- no agitation noted as present. patient had episode of AFIB- Dr. Cobian notified. patient is awake to name. dw saff A code was called arrond 9;00 AM today- pat was found unresponsive , got intubated and was transferred to ICU. Constitutional: requiring IVF, requiring O2 Exam/Review of Systems Vital Signs Vitals Vital Signs Date Time Temp Pulse Resp B/P Pulse Ox O2 Delivery O2 Flow Rate FiO2 12/09/16 18:00 82 23 118/56 100 Mechanical Ventilator 12/09/16 17:50 60 12/09/16 17:30 101.0 12/09/16 01:45 2.0 Intake and Output 12/08/16 12/08/16 12/09/16 15:00 23:00 07:00 Intake Total 140 ml 2650 ml 810 ml Balance 140 ml 2650 ml 810 ml Exam Constitutional: alert, well developed Psych: nl mood/affect Head: atraumatic Eyes: nl sclera ENMT: nl external ears & nose Respiratory: diminished breath sounds Cardiovascular: regular rate and rhythm Gastrointestinal: non-tender, soft Musculoskeletal: other Neurological: lethargic Lymph: nontender Results Result Diagram: 12/09/16 0525 12/09/16 0525 Results 24 hrs Laboratory Tests Test 12/08/16 20:28 12/09/16 01:44 12/09/16 05:25 12/09/16 08:08 Bedside Glucose 229 H 222 H 187 White Blood Count 7.8 Red Blood Count 2.94 L Hemoglobin 9.4 L Hematocrit 29.2 L Mean Corpuscular Volume 99.3 Mean Corpuscular Hemoglobin 32.0 Mean Corpuscular Hemoglobin Concent 32.2 Red Cell Distribution Width 12.8 Platelet Count 137 L Mean Platelet Volume 10.8 H Neutrophils % 75.8 Lymphocytes % 11.5 L Monocytes % 11.0 Eosinophils % 0.4 Basophils % 0.4 Nucleated Red Blood Cells % 0.0 Neutrophils # 5.9 Lymphocytes # 0.9 Monocytes # 0.9 Eosinophils # 0.0 Basophils # 0.0 Nucleated Red Blood Cells # 0.0 Sodium Level 133 L Potassium Level 4.6 Chloride Level 102 Carbon Dioxide Level 20 L Anion Gap 16 Blood Urea Nitrogen 38 H Creatinine 7.12 #H Glucose Level 184 Calcium Level 6.9 L Test 12/09/16 08:39 12/09/16 09:47 12/09/16 12:27 12/09/16 18:02 Bedside Glucose 211 172 145 Blood Gas Specimen Source Blood arterial Arterial Blood Date Drawn 12/09/2016 10:00:47 AM Arterial Blood pH (Temp corrected) 7.276 *L Arterial Blood pCO2 (Temp correct) 41.6 Arterial Blood pO2 (Temp corrected) 102.9 H Arterial Blood HCO3 18.9 L Arterial Blood Base Excess -7.4 L Arterial Blood Oxygen Saturation 97.0 Derek Test ACCEPTAB Arterial Blood Gas Puncture Site Right Radial Arterial Blood Carboxyhemoglobin 0.3 Arterial Blood Methemoglobin 0.3 Blood Gas A-a O2 Differential 351.5 H Oxyhemoglobin Percent 96.4 Total Hemoglobin 11.4 L Blood Gas Temperature 37.0 Blood Gas Respiration Rate 14.0 Blood Gas Actual Respiration Rate 20 Blood Gas Modality VENT - AC FiO2 70.0 Blood Gas Tidal Volume 500.0 Blood Gas Low PEEP Setting 5.0 Blood Gas Critical Value Read Back Philip IRWIN RN Blood Gas Notified Whom RDIX Blood Gas Notified Time 12/09/2016 10:12:17 AM Medications Medications Current Medications Diagnostic Test (Pha) (Accu-Chek) 1 ea 02 XX ; Start 12/03/16 at 02:00 Ondansetron HCl (Zofran Inj) 4 mg Q6H PRN IV NAUSEA AND/OR VOMITING; Start at 22:30 Miscellaneous Information 1 ea NOTE XX ; Start 12/02/16 at 23:00 Glucose (Glutose) 15 gm Q15M PRN PO DECREASED GLUCOSE; Start 12/02/16 at 23:00 Glucose (Glutose) 22.5 gm Q15M PRN PO DECREASED GLUCOSE; Start 12/02/16 at 23: 00 Dextrose (D50w Syringe) 25 ml Q15M PRN IV DECREASED GLUCOSE; Start 12/02/16 at 23:00 Dextrose (D50w Syringe) 50 ml Q15M PRN IV DECREASED GLUCOSE; Start 12/02/16 at 23:00 Glucagon (Glucagen) 1 mg Q15M PRN IM DECREASED GLUCOSE; Start 12/02/16 at 23:00 Glucose (Glutose) 15 gm Q15M PRN BUCCAL DECREASED GLUCOSE; Start 12/02/16 at 23 :00 Aspirin (Halfprin) 81 mg DAILY PO Last administered on 12/08/16 08:38; Admin Dose 81 MG; Start 12/03/16 at 09:00 Gabapentin (Neurontin) 800 mg TID PO Last administered on 12/08/16 20:33; Admin Dose 800 MG; Start 12/03/16 at 09:00 Meclizine HCl (Antivert) 25 mg TID PRN PO dizziness Last administered on 10:04; Admin Dose 25 MG; Start 12/02/16 at 23:00 Terazosin HCl (Hytrin) 5 mg HS PO Last administered on 12/07/16 20:28; Admin Dose 5 MG; Start 12/03/16 at 21:00 Enoxaparin Sodium (Lovenox) 30 mg DAILY SC Last administered on 12/09/16 08:17 ; Admin Dose 30 MG; Start 12/03/16 at 09:00 Acetaminophen/ Hydrocodone Bitart ([place] (5/325)) 1 tab Q6H PRN PO PAIN LEVEL 4 -7; Start 12/02/16 at 23:30 Acetaminophen (Tylenol Tab) 650 mg Q6H PRN PO PAIN AND OR ELEVATED TEMP; Start 12/02/16 at 23:30 Docusate Sodium (Colace) 100 mg BID PO Last administered on 12/08/16 20:32; Admin Dose 100 MG; Start 12/03/16 at 09:00 Hydralazine HCl (Apresoline) 10 mg Q6H PRN IV ELEVATED SYSTOLIC BP; Start 12/02 at 23:30 Pantoprazole (Protonix Tab) 40 mg DAILY@06 PO Last administered on 12/09/16 05 :25; Admin Dose 40 MG; Start 12/03/16 at 06:00 Zolpidem Tartrate (Ambien) 5 mg HS PRN PO INSOMNIA; Start 12/02/16 at 23:30 Benazepril HCl (Lotensin) 10 mg DAILY PO Last administered on 12/07/16 08:26; Admin Dose 10 MG; Start 12/04/16 at 09:00; Status Future Hold Insulin Glargine 25 unit 25 unit DAILY SC Last administered on 12/09/16 08:24 ; Admin Dose 25 UNIT; Start 12/06/16 at 09:00 Sodium Chloride (1/2 NS) 1,000 ml @ 70 mls/hr [id number] IV Last administered on 12/08/16 22:29; Admin Dose 70 MLS/HR; Start 12/07/16 at 12:30 Collagenase (Santyl) 1 applic DAILY TOP Last administered on 12/09/16 10:26; Admin Dose 1 APPLIC; Start 12/07/16 at 16:00 Lorazepam (Ativan) 2 mg Q2 PRN IV AGITATION/ANXIETY; Start 12/09/16 at 09:30 Morphine Sulfate (morphine) 2 mg Q2H PRN IV PAIN; Start 12/09/16 at 09:30 Acetaminophen 650 mg 650 mg Q6H PRN [place] ELEVATED TEMPERATURE Last administered on 12/09/16 17:53; Admin Dose 650 MG; Start 12/09/16 at 17:00 Piperacillin Sod/ Tazobactam Sod (Zosyn 2.25gm/ 50ml (Pmx)) 50 ml @ 100 mls/hr Q12 IVPB ; Start 12/09/16 at 21:00 Metoprolol Tartrate (Lopressor) 5 mg Q4H PRN IV HR>100 Last administered on t 17:53; Admin Dose 5 MG; Start 12/09/16 at 17:48 YULIANA SIMMONS Dec 09, 2016 19:08
[2016-12-10] VITALS (56 sets, daily range): BP systolic 81–160; BP diastolic 44–126; PULSE 65–108; RESP 15–30
--- NOTE | 2016-12-10 00:56 | CONS ---
DATE OF ADMISSION: 12/02/2016 DATE OF CONSULTATION: 12/09/2016 REASON FOR CONSULTATION: Atrial fibrillation, hypotension. REQUESTING PHYSICIAN: Viet Heredia MD HISTORY OF PRESENT ILLNESS: Mr. Newton is a 66-year-old male with history of diabetes mellitus, hypertension, who was initially admitted with complaints of toe pain status post fall 1 week prior. At that time, the patient denied chest pain, shortness of breath. The patient was noted to have stable vital signs; temperature 97.8, blood pressure 124/46, pulse 79, respirations 16, satting 100 % on room air. The patient's labs revealed a white count 6.3, hemoglobin 12.6, platelet count of 180,000. Sodium 131, potassium 4.4, creatinine 0.6, BUN 13, LDL 80, HDL 56. Vancomycin level 11.6. Serology for HIV 1 and 2 negative. The patient underwent a venous ultrasound revealing no sonographic evidence for left lower-extremity deep venous thrombosis, a foot x-ray revealing soft tissue swelling of the foot and ankle suspicious for cellulitis, and a foot MRI that revealed moderate bone marrow edema at the first distal phalanx without cortical destruction. The patient's electrocardiogram from admission is not in the chart for my review at this time. The patient subsequently was admitted to the floor, and is being followed by ID Service, Podiatry Service, and Vascular Surgery Service. The patient today was noted to have an RT with complaints of dizziness and respiratory distress, and subsequently required intubation and admitted to the ICU after development of hypotension. The patient's hospital course prior to RT was notable for, over an approximate 3-day period, development of acute renal failure, and today the patient underwent electrocardiogram after RT, that reveals sinus rhythm at a rate of 94, normal axis, normal intervals with inferolateral biphasic T-wave abnormalities. The patient was subsequently admitted to the ICU, intubated, and the patient currently remains in the ICU, intubated on pressure support. The patient since admission to the ICU, has had development of paroxysmal atrial fibrillation and is now back in sinus rhythm. PAST MEDICAL HISTORY: As above in HPI. MEDICATIONS CURRENTLY IN HOSPITAL: Fernandez-Synephrine, Zosyn, IV push metoprolol, Tylenol p.r.n., Ativan p.r.n., morphine p.r.n., IV fluid hydration at 70 mL an hour, Lantus, aspirin 81 mg daily, Lovenox 40 sq daily, Protonix 40 mg daily, p.r.n. hydralazine, vancomycin. ALLERGIES: NO KNOWN DRUG ALLERGIES. SOCIAL HISTORY: Remote tobacco; quit x15 years, social ETOH, no illicit drug use. FAMILY HISTORY: No history of sudden cardiac or early CAD. REVIEW OF SYSTEMS: As above in HPI. CONSTITUTIONAL: No fevers, chills. PULMONARY: Respiratory failure, status post intubation. GASTROINTESTINAL: No vomiting. GENITOURINARY: Renal failure with an HD today. MUSCULOSKELETAL: Degenerative joint disease. PSYCHIATRIC: No documented psychiatric history. NEUROLOGIC: No documented history of CVA. ENDOCRINE: Diabetes mellitus. PHYSICAL EXAMINATION VITAL SIGNS: Temperature of 101, blood pressure most recently 118/56, pulse 82 , respirations 22, saturating 100%, FIO2 of 60%. GENERAL: The patient is sleeping, but easily arousable and intubated. NECK: JVP of approximately 9 cm of water. CHEST: Decreased breath sounds at bases bilaterally and upper airway transmitted rhonchorous sounds. HEART: Regular rate and rhythm. Normal S1, S2, a I/ systolic murmur, nondisplaced PMI. ABDOMEN: Positive bowel sounds, soft. EXTREMITIES: Trace edema bilaterally, 1+ pulses bilaterally posterior tibial. Toe covered by a dressing. LABORATORY DATA: Most recent from today: White count 7.8, hemoglobin 9.4, platelet count of 137,000. Sodium 132, potassium 4.6, creatinine 7.1, BUN of 38. ABG: Revealing a pH of 7.276, PO2 of 102, pCO2 of 41. IMAGING STUDIES: As above in HPI with a chest x-ray from today revealing cardiomegaly, dense right midlung and lung base airspace disease, mild atelectasis versus airspace disease of the left lung base, and venous ultrasound on the 12/07 revealing bilateral greater saphenous vein mapping. ECG: As above in HPI. No further electrocardiograms for my review at this time. IMPRESSION: 1. Atrial fibrillation, now back in sinus rhythm. 2. Hypotension on Fernandez-Synephrine pressor support. 3. Abnormal electrocardiogram with inferolateral T-wave inversions. 4. Respiratory failure, status post intubation. 5. Nonhealing toe ulceration. 6. Peripheral arterial disease by arterial ultrasound of the lower extremities this admission. 7. Diabetes mellitus. 8. Fevers. RECOMMENDATIONS: 1. At this time, would maintain the patient on telemetry monitoring to follow rhythm and rate control closely. 2. Would wean the patient's Fernandez-Synephrine pressor support as tolerated and would complete a rule out for myocardial infarction to ensure this patient has not provoked an acute coronary syndrome in the setting of respiratory distress, tachycardia. 3. Check a 2D echo for assessment of the patient's ejection fraction, wall motion, rule out any major valve abnormalities. 4. Continue the patient's broad-spectrum antibiotics and follow up all culture data. 5. Continue local wound care. 6. Continue the patient's aspirin and will change the patient's Lovenox to subcutaneous heparin at this time, and if patient does develop recurrent bouts of atrial fibrillation, will place the patient on IV heparin at that time. 7. Will consider initiation of amiodarone for recurrent bouts of atrial fibrillation and will check a TSH to be sure that subclinical hyperthyroidism is not contributing to any bouts of atrial fibrillation. Thank you for allowing me to take part in the care of this patient. I will continue to follow along very closely with you, with further recommendations to be made as the patient progresses through his inpatient hospital clinical course. Dictated By: VICENTE RUFFIN/MICHELLE Conf#: [id number] DID#: [id number] CC: VIET HEREDIA MD;*EndCC* MTDD
[2016-12-10 01:59] LABS: CK-MB 2.07 ng/ml (0.0-2.4); TROPONIN-I 3.92 ng/ml (0.00-0.12)
[2016-12-10] MEDS: ACCU-CHEK XX SCH (02:00)
[2016-12-10 04:57] LABS: ADD SCAN DIFF NO
[2016-12-10 05:03] LABS: BASOPHILS % 0.3 % (0.0-2.0); EOSINOPHILS % 0.2 % (0.0-7.0); HEMOGLOBIN 8.8 g/dl (14.0-18.0); LYMPHOCYTES # 0.8 10^3/ul (0.8-2.9); LYMPHOCYTES % 7.3 % (15.0-51.0); MEAN CORPUSCULAR HEMOGLOBIN 31.3 pg (29.0-33.0); MEAN CORPUSCULAR HGB CONC 32.6 g/dl (32.0-37.0); MEAN CORPUSCULAR VOLUME 96.1 fl (82.0-101.0); MEAN PLATELET VOLUME 11.1 fl (7.4-10.4); MONOCYTE # 1.1 10^3/ul (0.3-0.9); MONOCYTES % 10.6 % (0.0-11.0); NEUTROPHIL # 8.7 10^3/ul (1.6-7.5); NEUTROPHILS % 80.9 % (39.0-77.0); PLATELET COUNT 169 10^3/UL (140-415); RED BLOOD COUNT 2.81 10^6/ul (4.70-6.10); RED CELL DISTRIBUTION WIDTH 12.6 % (11.5-14.5); WHITE BLOOD COUNT 10.7 10^3/ul (4.8-10.8)
[2016-12-10 05:27] LABS: CHOL/HDL RATIO 2.9 RATIO; MAGNESIUM 1.9 mg/dl (1.7-2.5); PHOSPHORUS 5.5 mg/dl (2.5-4.9)
[2016-12-10 05:28] LABS: ALBUMIN 2.8 g/dl (3.3-4.9); ALBUMIN/GLOBULIN RATIO 0.93; BILIRUBIN,INDIRECT 0.2 mg/dl (0-1.1); BILIRUBIN,TOTAL 0.2 mg/dl (0.2-1.3); CALCIUM 7.2 mg/dl (8.4-10.2); CREATININE 6.56 mg/dl (0.61-1.24); POTASSIUM 3.9 mmol/L (3.5-5.1); TOTAL PROTEIN 5.8 g/dl (6.1-8.1)
[2016-12-10] MEDS: PANTOPRAZOLE (EC) 40 MG TAB PO SCH (05:44)
[2016-12-10] MEDS: DEXTROSE 50% 50 ML SYRINGE IV PRN (05:52)
[2016-12-10] MEDS: SOD CHLORIDE 0.45% 1,000 ML IV SCH ×2 (05:55→21:26)
[2016-12-10] MEDS ORDERED: HEPARIN 5,000 UNIT/0.5 ML VIAL SC SCH (06:00)
[2016-12-10] MEDS: PHENYLephrine 40 MG in DEXTROSE 5% 496 ML IV SCH (06:02)
[2016-12-10 06:39] LABS: CK-MB 1.52 ng/ml (0.0-2.4); TROPONIN-I 3.63 ng/ml (0.00-0.12)
[2016-12-10] MEDS: INSULIN ASPART [NOVOLOG] 3 ML PEN SC SCH ×7 (07:35→21:00)
--- NOTE | 2016-12-10 08:05 | CONS ---
Date/Time of Note Date/Time of Note DATE: 12/10/16 TIME: 08:00 Assessment/Plan Assessment/Plan Chief Complaint/Hosp Course assessment/impression - SIRS, lactic acid 1.8 on 12/09/2016, cultures in progress - cardiopulmonary arrest on 12/09/2016, on ventilator - diabetic infection of L 1st toe/foot. 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 and left fourth proximal phalanx - ARANZA, on HD from 12/09/2016 - A fib, in sinus as of this morning - troponin+ - DM - HTN recommendations: - pending results: blood cultures, urine culture (urinalysis could not be done due to low volume) - continue pip/tazo 12/03/2016, no draining wound to sample for culture in order to guide antibiotic therapy - ultimately, Pt Pt needs 6 weeks of antibiotics to treat 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 and left fourth proximal phalanx: 2016 through 01/15/2017 management d/w Pt's RN the critical care time I took to care for this Pt today was from 0730 to 0805 Problems: Consultation Date/Type/Reason Admit Date/Time Dec 02, 2016 at 21:01 Initial Consult Date 12/03/16 Type of Consultation: ID Referring Provider: VIET PARKER MD 24 HR Interval Summary Subjective hx not possible: pt critical, pt critical status Exam/Review of Systems Vital Signs Vitals Vital Signs Date Time Temp Pulse Resp B/P Pulse Ox O2 Delivery O2 Flow Rate FiO2 12/10/16 07:00 78 20 107/75 99 Mechanical Ventilator 12/10/16 06:00 99.5 12/10/16 05:21 40 12/09/16 01:45 2.0 Intake and Output 12/09/16 12/09/16 12/10/16 15:00 23:00 07:00 Intake Total 540 ml 627 ml 720 ml Output Total 35 ml 20 ml Balance 505 ml 607 ml 720 ml Exam Constitutional: non-verbal Head: normocephalic Eyes: nl conjunctiva, nl lids, other (intubated) ENMT: nl external ears & nose, nl nasal mucosa & septum Neck: supple Respiratory: clear to auscultation, normal air movement Cardiovascular: nl pulses, regular rate and rhythm Gastrointestinal: non-tender, soft Genitourinary - Male: other (FC) Extremities: edema Neurological: other (awake but cannot communicate because of ETT) Skin: nl turgor Results Result Diagram: 12/10/16 0345 12/10/16 0345 Results 24 hrs Laboratory Tests Test 12/09/16 08:08 12/09/16 08:39 12/09/16 09:47 12/09/16 12:27 Bedside Glucose 187 211 172 Blood Gas Specimen Source Blood arterial Arterial Blood Date Drawn 12/09/2016 10:00:47 AM Arterial Blood pH (Temp corrected) 7.276 *L Arterial Blood pCO2 (Temp correct) 41.6 Arterial Blood pO2 (Temp corrected) 102.9 H Arterial Blood HCO3 18.9 L Arterial Blood Base Excess -7.4 L Arterial Blood Oxygen Saturation 97.0 Derek Test ACCEPTAB Arterial Blood Gas Puncture Site Right Radial Arterial Blood Carboxyhemoglobin 0.3 Arterial Blood Methemoglobin 0.3 Blood Gas A-a O2 Differential 351.5 H Oxyhemoglobin Percent 96.4 Total Hemoglobin 11.4 L Blood Gas Temperature 37.0 Blood Gas Respiration Rate 14.0 Blood Gas Actual Respiration Rate 20 Blood Gas Modality VENT - AC FiO2 70.0 Blood Gas Tidal Volume 500.0 Blood Gas Low PEEP Setting 5.0 Blood Gas Critical Value Read Back Philip IRWIN RN Blood Gas Notified Whom RDIX Blood Gas Notified Time 12/09/2016 10:12:17 AM Test 12/09/16 18:02 12/09/16 18:20 12/09/16 21:43 12/10/16 01:00 Bedside Glucose 145 94 Lactic Acid Level 1.8 Thyroid Stimulating Hormone (TSH) 0.611 Creatine Kinase 66 Creatine Kinase Index 3.1 Creatinine Kinase MB (Mass) 2.07 Troponin I 3.920 *H Test 12/10/16 03:45 12/10/16 05:50 12/10/16 06:19 White Blood Count 10.7 # Red Blood Count 2.81 L Hemoglobin 8.8 L Hematocrit 27.0 L Mean Corpuscular Volume 96.1 Mean Corpuscular Hemoglobin 31.3 Mean Corpuscular Hemoglobin Concent 32.6 Red Cell Distribution Width 12.6 Platelet Count 169 # Mean Platelet Volume 11.1 H Neutrophils % 80.9 H Lymphocytes % 7.3 L Monocytes % 10.6 Eosinophils % 0.2 Basophils % 0.3 Nucleated Red Blood Cells % 0.0 Neutrophils # 8.7 H Lymphocytes # 0.8 Monocytes # 1.1 H Eosinophils # 0.0 Basophils # 0.0 Nucleated Red Blood Cells # 0.0 Sodium Level 132 L Potassium Level 3.9 Chloride Level 101 Carbon Dioxide Level 25 Anion Gap 10 # Blood Urea Nitrogen 31 H Creatinine 6.56 H Glucose Level 66 #L Calcium Level 7.2 L Phosphorus Level 5.5 H Magnesium Level 1.9 Total Bilirubin 0.2 Direct Bilirubin 0.00 Indirect Bilirubin 0.2 Aspartate Amino Transf (AST/SGOT) 30 Alanine Aminotransferase (ALT/SGPT) 33 Alkaline Phosphatase 51 Total Protein 5.8 L Albumin 2.8 L Globulin 3.00 Albumin/Globulin Ratio 0.93 Triglycerides Level 82 Cholesterol Level 86 L LDL Cholesterol, Calculated 41 HDL Cholesterol 29 L Cholesterol/HDL Ratio 2.9 Creatine Kinase 56 Creatine Kinase Index 2.7 Creatinine Kinase MB (Mass) 1.52 Troponin I 3.630 *H Bedside Glucose 107 Medications Medications Current Medications Diagnostic Test (Pha) (Accu-Chek) 1 ea 02 XX Last administered on 12/10/16 02: 00; Admin Dose 1 EA; Start 12/03/16 at 02:00 Ondansetron HCl (Zofran Inj) 4 mg Q6H PRN IV NAUSEA AND/OR VOMITING; Start at 22:30 Miscellaneous Information 1 ea NOTE XX ; Start 12/02/16 at 23:00 Glucose (Glutose) 15 gm Q15M PRN PO DECREASED GLUCOSE; Start 12/02/16 at 23:00 Glucose (Glutose) 22.5 gm Q15M PRN PO DECREASED GLUCOSE; Start 12/02/16 at 23: 00 Dextrose (D50w Syringe) 25 ml Q15M PRN IV DECREASED GLUCOSE Last administered on 12/10/16 05:52; Admin Dose 25 ML; Start 12/02/16 at 23:00 Dextrose (D50w Syringe) 50 ml Q15M PRN IV DECREASED GLUCOSE; Start 12/02/16 at 23:00 Glucagon (Glucagen) 1 mg Q15M PRN IM DECREASED GLUCOSE; Start 12/02/16 at 23:00 Glucose (Glutose) 15 gm Q15M PRN BUCCAL DECREASED GLUCOSE; Start 12/02/16 at 23 :00 Aspirin (Halfprin) 81 mg DAILY PO Last administered on 12/08/16 08:38; Admin Dose 81 MG; Start 12/03/16 at 09:00 Gabapentin (Neurontin) 800 mg TID PO Last administered on 12/08/16 20:33; Admin Dose 800 MG; Start 12/03/16 at 09:00; Status Future Hold Meclizine HCl (Antivert) 25 mg TID PRN PO dizziness Last administered on 10:04; Admin Dose 25 MG; Start 12/02/16 at 23:00 Terazosin HCl (Hytrin) 5 mg HS PO Last administered on 12/07/16 20:28; Admin Dose 5 MG; Start 12/03/16 at 21:00; Status Future Hold Acetaminophen/ Hydrocodone Bitart (Backus (5/325)) 1 tab Q6H PRN PO PAIN LEVEL 4 -7; Start 12/02/16 at 23:30 Acetaminophen (Tylenol Tab) 650 mg Q6H PRN PO PAIN AND OR ELEVATED TEMP; Start 12/02/16 at 23:30 Docusate Sodium (Colace) 100 mg BID PO Last administered on 12/08/16 20:32; Admin Dose 100 MG; Start 12/03/16 at 09:00; Status Future Hold Hydralazine HCl (Apresoline) 10 mg Q6H PRN IV ELEVATED SYSTOLIC BP; Start 12/02 at 23:30 Pantoprazole (Protonix Tab) 40 mg DAILY@06 PO Last administered on 12/09/16 05 :25; Admin Dose 40 MG; Start 12/03/16 at 06:00 Zolpidem Tartrate (Ambien) 5 mg HS PRN PO INSOMNIA; Start 12/02/16 at 23:30 Benazepril HCl (Lotensin) 10 mg DAILY PO Last administered on 12/07/16 08:26; Admin Dose 10 MG; Start 12/04/16 at 09:00; Status Future Hold Insulin Glargine 25 unit 25 unit DAILY SC Last administered on 12/09/16 08:24 ; Admin Dose 25 UNIT; Start 12/06/16 at 09:00 Sodium Chloride (1/2 NS) 1,000 ml @ 70 mls/hr [id number] IV Last administered on 12/10/16 05:55; Admin Dose 70 MLS/HR; Start 12/07/16 at 12:30 Collagenase (Santyl) 1 applic DAILY TOP Last administered on 12/09/16 10:26; Admin Dose 1 APPLIC; Start 12/07/16 at 16:00 Lorazepam (Ativan) 2 mg Q2 PRN IV AGITATION/ANXIETY; Start 12/09/16 at 09:30 Morphine Sulfate (morphine) 2 mg Q2H PRN IV PAIN; Start 12/09/16 at 09:30 Acetaminophen 650 mg 650 mg Q6H PRN [place] ELEVATED TEMPERATURE Last administered on 12/09/16 17:53; Admin Dose 650 MG; Start 12/09/16 at 17:00 Piperacillin Sod/ Tazobactam Sod (Zosyn 2.25gm/ 50ml (Pmx)) 50 ml @ 100 mls/hr Q12 IVPB Last administered on 12/09/16 20:29; Admin Dose 100 MLS/HR; Start at 21:00 Metoprolol Tartrate 5 mg 5 mg Q4H PRN IV HR>100 Last administered on 12/09/16 17:53; Admin Dose 5 MG; Start 12/09/16 at 17:48 Phenylephrine HCl/ Dextrose (Fernandez-Syneph/D5W) 500 ml @ 75 mls/hr TITRATE IV Last administered on 12/10/16 06:02; Admin Dose 10 MLS/HR; Start 12/09/16 at 22 :00 Heparin Sodium (Porcine) (Heparin (5000 Units/0.5 ml)) 5,000 unit Q8 SC Last administered on 12/10/16 05:39; Admin Dose 5,000 UNIT; Start 12/10/16 at 06:00 CHRISTY LOPEZ M.D. Dec 10, 2016 08:05
[2016-12-10] MEDS: ASPIRIN (EC) 81 MG TAB PO SCH (08:13)
[2016-12-10] MEDS: COLLAGENASE 30 GM TUBE TOP SCH (08:17)
[2016-12-10] MEDS: PIPER-TAZO 2.25 GM (PMX) 50 ML IVPB SCH ×2 (08:17→21:12)
--- NOTE | 2016-12-10 08:32 | RADRPT ---
PROCEDURE: XR Chest. CLINICAL INDICATION: Pneumonia, CHF TECHNIQUE: An AP view of the chest was obtained. COMPARISON: Chest x-ray dated 12/09/2016 FINDINGS: The endotracheal tube tip is approximately 3.7 cm above the dorinda. There are diffuse bilateral interstitial opacities with small left pleural effusion. No pneumothora x is seen. The cardiomediastinal silhouette is mildly enlarged . Calcifications are seen within th e aortic arch. The osseous structures demonstrate senescent changes. IMPRESSION: 1. Findings suggestive of interstitial edema with small left pleural effusion. No significant inter ean change given respiratory variation. 2. Mild cardiomegaly and aortic atherosclerosis. 3. Tubes and lines, as described above. RPTAT: HH .Hailey Curry MD, MD Date Time Electronically viewed and signed by .Hailey Curry MD, on 12/10/2016 08:31 .G/
[2016-12-10 08:40] LABS: AADO2 Arterial 139.1 mmHg (7.0-24.0); Allen Test ACCEPTAB; Arterial Base Excess -1.9 mmol/L (-3.0-3); Arterial COHb 0.3 % (0.0-3.0); Arterial Fraction of Oxyhgb 97.1 % (93.0-99.0); Arterial HCO3 21.3 mmol/L (22.0-26.0); Arterial MetHb 0.4 % (0.0-1.5); MODE VENT - AC
[2016-12-10] MEDS: INSULIN GLARGINE [LANtus] 3 ML PEN SC SCH (09:00)
--- NOTE | 2016-12-10 10:56 | CONS ---
Date/Time of Note Date/Time of Note DATE: 12/10/16 TIME: 10:54 Consult Date/Type/Reason Admit Date/Time Dec 02, 2016 at 21:01 Initial Consult Date 12/03/16 Type of Consultation: pulmonary ICU Ordering Provider: VIET PARKER MD Subjective Patient awake alert oriented this morning orally intubated currently hemodynamically stable Objective Vital Signs Date Time Temp Pulse Resp B/P Pulse Ox O2 Delivery O2 Flow Rate FiO2 12/10/16 08:00 40 12/10/16 08:00 80 12/10/16 07:00 20 107/75 99 Mechanical Ventilator 12/10/16 06:00 99.5 12/09/16 01:45 2.0 Intake and Output 12/09/16 12/09/16 12/10/16 15:00 23:00 07:00 Intake Total 540 ml 627 ml 720 ml Output Total 35 ml 20 ml Balance 505 ml 607 ml 720 ml Exam PHYSICAL EXAMINATION: GENERAL: Elderly Turkish gentleman, intubated on mechanical ventilation, appears comfortable at rest, no acute distress. VITAL SIGNS: As above NECK: Supple. No JVD or lymphadenopathy. CARDIAC: S1, S2, no added sounds or murmurs. CHEST: Diminished air entry bilaterally. ABDOMEN: Soft, nontender. No guarding or rebound. EXTREMITIES: No cyanosis, clubbing, edema. NEUROLOGIC: Generalized weakness, but no focal deficits. Results/Medications Result Diagram: 12/10/16 0345 12/10/16 0345 Results 24 hrs Laboratory Tests Test 12/09/16 12:27 12/09/16 18:02 12/09/16 18:20 12/09/16 21:43 Bedside Glucose 172 145 94 Lactic Acid Level 1.8 Thyroid Stimulating Hormone (TSH) 0.611 Test 12/10/16 01:00 12/10/16 03:45 12/10/16 05:50 12/10/16 06:19 Creatine Kinase 66 56 Creatine Kinase Index 3.1 2.7 Creatinine Kinase MB (Mass) 2.07 1.52 Troponin I 3.920 *H 3.630 *H White Blood Count 10.7 # Red Blood Count 2.81 L Hemoglobin 8.8 L Hematocrit 27.0 L Mean Corpuscular Volume 96.1 Mean Corpuscular Hemoglobin 31.3 Mean Corpuscular Hemoglobin Concent 32.6 Red Cell Distribution Width 12.6 Platelet Count 169 # Mean Platelet Volume 11.1 H Neutrophils % 80.9 H Lymphocytes % 7.3 L Monocytes % 10.6 Eosinophils % 0.2 Basophils % 0.3 Nucleated Red Blood Cells % 0.0 Neutrophils # 8.7 H Lymphocytes # 0.8 Monocytes # 1.1 H Eosinophils # 0.0 Basophils # 0.0 Nucleated Red Blood Cells # 0.0 Sodium Level 132 L Potassium Level 3.9 Chloride Level 101 Carbon Dioxide Level 25 Anion Gap 10 # Blood Urea Nitrogen 31 H Creatinine 6.56 H Glucose Level 66 #L Calcium Level 7.2 L Phosphorus Level 5.5 H Magnesium Level 1.9 Total Bilirubin 0.2 Direct Bilirubin 0.00 Indirect Bilirubin 0.2 Aspartate Amino Transf (AST/SGOT) 30 Alanine Aminotransferase (ALT/SGPT) 33 Alkaline Phosphatase 51 Total Protein 5.8 L Albumin 2.8 L Globulin 3.00 Albumin/Globulin Ratio 0.93 Triglycerides Level 82 Cholesterol Level 86 L LDL Cholesterol, Calculated 41 HDL Cholesterol 29 L Cholesterol/HDL Ratio 2.9 Bedside Glucose 107 Test 12/10/16 07:00 12/10/16 07:56 Blood Gas Specimen Source Blood arterial Arterial Blood Date Drawn 12/10/2016 7:30:39 AM Arterial Blood pH (Temp corrected) 7.458 H Arterial Blood pCO2 (Temp correct) 30.8 L Arterial Blood pO2 (Temp corrected) 110.7 H Arterial Blood HCO3 21.3 L Arterial Blood Base Excess -1.9 Arterial Blood Oxygen Saturation 97.8 Derek Test ACCEPTAB Arterial Blood Gas Puncture Site Right Brachial Arterial Blood Carboxyhemoglobin 0.3 Arterial Blood Methemoglobin 0.4 Blood Gas A-a O2 Differential 139.1 H Oxyhemoglobin Percent 97.1 Total Hemoglobin 10.0 L Blood Gas Temperature 37.0 Blood Gas Respiration Rate 20.0 Blood Gas Actual Respiration Rate 20 Blood Gas Modality VENT - AC FiO2 40.0 Blood Gas Tidal Volume 550.0 Blood Gas Low PEEP Setting 5.0 Blood Gas Notified Whom K B Blood Gas Notified Time 12/10/2016 8:11:04 AM Bedside Glucose 93 Medications Current Medications Diagnostic Test (Pha) (Accu-Chek) 1 ea 02 XX Last administered on 12/10/16t 02: 00; Admin Dose 1 EA; Start 12/03/16 at 02:00 Ondansetron HCl (Zofran Inj) 4 mg Q6H PRN IV NAUSEA AND/OR VOMITING; Start at 22:30 Miscellaneous Information 1 ea NOTE XX ; Start 12/02/16 at 23:00 Glucose (Glutose) 15 gm Q15M PRN PO DECREASED GLUCOSE; Start 12/02/16 at 23:00 Glucose (Glutose) 22.5 gm Q15M PRN PO DECREASED GLUCOSE; Start 12/02/16 at 23: 00 Dextrose (D50w Syringe) 25 ml Q15M PRN IV DECREASED GLUCOSE Last administered on 12/10/16 05:52; Admin Dose 25 ML; Start 12/02/16 at 23:00 Dextrose (D50w Syringe) 50 ml Q15M PRN IV DECREASED GLUCOSE; Start 12/02/16 at 23:00 Glucagon (Glucagen) 1 mg Q15M PRN IM DECREASED GLUCOSE; Start 12/02/16 at 23:00 Glucose (Glutose) 15 gm Q15M PRN BUCCAL DECREASED GLUCOSE; Start 12/02/16 at 23 :00 Aspirin (Halfprin) 81 mg DAILY PO Last administered on 12/08/16 08:38; Admin Dose 81 MG; Start 12/03/16 at 09:00 Gabapentin (Neurontin) 800 mg TID PO Last administered on 12/08/16 20:33; Admin Dose 800 MG; Start 12/03/16 at 09:00; Status Future Hold Meclizine HCl (Antivert) 25 mg TID PRN PO dizziness Last administered on 10:04; Admin Dose 25 MG; Start 12/02/16 at 23:00 Terazosin HCl (Hytrin) 5 mg HS PO Last administered on 12/07/16 20:28; Admin Dose 5 MG; Start 12/03/16 at 21:00; Status Future Hold Acetaminophen/ Hydrocodone Bitart ([place] (5/325)) 1 tab Q6H PRN PO PAIN LEVEL 4 -7; Start 12/02/16 at 23:30 Acetaminophen (Tylenol Tab) 650 mg Q6H PRN PO PAIN AND OR ELEVATED TEMP; Start 12/02/16 at 23:30 Docusate Sodium (Colace) 100 mg BID PO Last administered on 12/08/16 20:32; Admin Dose 100 MG; Start 12/03/16 at 09:00; Status Future Hold Hydralazine HCl (Apresoline) 10 mg Q6H PRN IV ELEVATED SYSTOLIC BP; Start 12/02 at 23:30 Pantoprazole (Protonix Tab) 40 mg DAILY@06 PO Last administered on 12/09/16 05 :25; Admin Dose 40 MG; Start 12/03/16 at 06:00 Zolpidem Tartrate (Ambien) 5 mg HS PRN PO INSOMNIA; Start 12/02/16 at 23:30 Benazepril HCl (Lotensin) 10 mg DAILY PO Last administered on 12/07/16 08:26; Admin Dose 10 MG; Start 12/04/16 at 09:00; Status Future Hold Insulin Glargine 25 unit 25 unit DAILY SC Last administered on 12/09/16 08:24 ; Admin Dose 25 UNIT; Start 12/06/16 at 09:00 Sodium Chloride (1/2 NS) 1,000 ml @ 70 mls/hr [id number] IV Last administered on 12/10/16 05:55; Admin Dose 70 MLS/HR; Start 12/07/16 at 12:30 Collagenase (Santyl) 1 applic DAILY TOP Last administered on 12/10/16 08:17; Admin Dose 1 APPLIC; Start 12/07/16 at 16:00 Lorazepam (Ativan) 2 mg Q2 PRN IV AGITATION/ANXIETY; Start 12/09/16 at 09:30 Morphine Sulfate (morphine) 2 mg Q2H PRN IV PAIN; Start 12/09/16 at 09:30 Acetaminophen 650 mg 650 mg Q6H PRN [place] ELEVATED TEMPERATURE Last administered on 12/09/16 17:53; Admin Dose 650 MG; Start 12/09/16 at 17:00 Piperacillin Sod/ Tazobactam Sod (Zosyn 2.25gm/ 50ml (Pmx)) 50 ml @ 100 mls/hr Q12 IVPB Last administered on 12/10/16 08:17; Admin Dose 100 MLS/HR; Start at 21:00 Metoprolol Tartrate 5 mg 5 mg Q4H PRN IV HR>100 Last administered on 12/09/16 17:53; Admin Dose 5 MG; Start 12/09/16 at 17:48 Phenylephrine HCl/ Dextrose (Fernandez-Syneph/D5W) 500 ml @ 75 mls/hr TITRATE IV Last administered on 12/10/16 06:02; Admin Dose 10 MLS/HR; Start 12/09/16 at 22 :00 Heparin Sodium (Porcine) (Heparin (5000 Units/0.5 ml)) 5,000 unit Q8 SC Last administered on 12/10/16 05:39; Admin Dose 5,000 UNIT; Start 12/10/16 at 06:00 Assessment/Plan Chief Complaint/Hosp Course IMPRESSION AND PLAN: 1. Acute kidney injury. 2. Acute renal failure with worsening creatinine. Likely vancomycin-induced acute kidney injury 3. Hypoxemic respiratory failure. Secondary to pulmonary edema 4. Hypercapnic respiratory failure. The patient will require 1. Continued mechanical ventilation. CPAP trial this morning 2. Renal recommendations. Hemodialysis today per nephrology 3. Pulmonary toilet. 4. DVT and GI prophylaxis. Disposition Continue ICU care Discussed with nephrology Discussed with nursing staff Critical care time 40 minutes Problems: AUDELIA BARRIENTOS MD, [facility] Dec 10, 2016 10:56
--- NOTE | 2016-12-10 11:05 | CONS ---
Date/Time of Note Date/Time of Note DATE: 12/10/16 TIME: 11:02 Assessment/Plan Assessment/Plan Additional Assessment/Plan 1. Acute kidney injury 2/2 ATN- worsenign renal failure with pt becomes anuric - started on HD on 12/09/16 for acute fluid overload and Pulmonary edema 2. acute resp failure intubated on ventilator 2. Left foot diabetic ulcer/cellulitis currently on IV antibiotics, Zosyn and vancomycin. 3. History of diabetes mellitus, insulin-dependent with lower extremity neuropathy. 4. History of hypertension. 5. History of aortic stenosis with diastolic dysfunction with ejection fraction 60% on echocardiogram. PLAN: started on HD yesterday, will paln for HD today then possible plan for Extubation if tolerates CPAP will order HD for tomorrow also then no HD on tuesday will continue to follow up on patient Consultation Date/Type/Reason Admit Date/Time Dec 02, 2016 at 21:01 Initial Consult Date 12/07/16 Type of Consultation: NEPHROLOGY Referring Provider: VIET APRKER MD 24 HR Interval Summary Free Text/Dictation pt gets started on HD yesterday, s/p HD yesterday, plan for HD today then possible CPAP trial today Exam/Review of Systems Vital Signs Vitals Vital Signs Date Time Temp Pulse Resp B/P Pulse Ox O2 Delivery O2 Flow Rate FiO2 12/10/16 10:00 81 20 112/74 96 Mechanical Ventilator 12/10/16 08:00 40 12/10/16 08:00 98.6 12/09/16 01:45 2.0 Intake and Output 12/09/16 12/09/16 12/10/16 15:00 23:00 07:00 Intake Total 540 ml 627 ml 720 ml Output Total 35 ml 20 ml Balance 505 ml 607 ml 720 ml Exam GENERAL: intubated on ventilator HEENT: Normal. Oropharynx clear. NECK: + JVD LUNGS: bilateral basilar crackles HEART: S1, S2, with regular rhythm, no murmur. ABDOMEN: Soft, nontender, nondistended. Bowel sounds are present. EXTREMITIES: left foot dressing in place, + Molina catheter in place NEUROLOGICAL: not able to assess Results Result Diagram: 12/10/16 0345 12/10/16 0345 Results 24 hrs Laboratory Tests Test 12/09/16 12:27 12/09/16 18:02 12/09/16 18:20 12/09/16 21:43 Bedside Glucose 172 145 94 Lactic Acid Level 1.8 Thyroid Stimulating Hormone (TSH) 0.611 Test 12/10/16 01:00 12/10/16 03:45 12/10/16 05:50 12/10/16 06:19 Creatine Kinase 66 56 Creatine Kinase Index 3.1 2.7 Creatinine Kinase MB (Mass) 2.07 1.52 Troponin I 3.920 *H 3.630 *H White Blood Count 10.7 # Red Blood Count 2.81 L Hemoglobin 8.8 L Hematocrit 27.0 L Mean Corpuscular Volume 96.1 Mean Corpuscular Hemoglobin 31.3 Mean Corpuscular Hemoglobin Concent 32.6 Red Cell Distribution Width 12.6 Platelet Count 169 # Mean Platelet Volume 11.1 H Neutrophils % 80.9 H Lymphocytes % 7.3 L Monocytes % 10.6 Eosinophils % 0.2 Basophils % 0.3 Nucleated Red Blood Cells % 0.0 Neutrophils # 8.7 H Lymphocytes # 0.8 Monocytes # 1.1 H Eosinophils # 0.0 Basophils # 0.0 Nucleated Red Blood Cells # 0.0 Sodium Level 132 L Potassium Level 3.9 Chloride Level 101 Carbon Dioxide Level 25 Anion Gap 10 # Blood Urea Nitrogen 31 H Creatinine 6.56 H Glucose Level 66 #L Calcium Level 7.2 L Phosphorus Level 5.5 H Magnesium Level 1.9 Total Bilirubin 0.2 Direct Bilirubin 0.00 Indirect Bilirubin 0.2 Aspartate Amino Transf (AST/SGOT) 30 Alanine Aminotransferase (ALT/SGPT) 33 Alkaline Phosphatase 51 Total Protein 5.8 L Albumin 2.8 L Globulin 3.00 Albumin/Globulin Ratio 0.93 Triglycerides Level 82 Cholesterol Level 86 L LDL Cholesterol, Calculated 41 HDL Cholesterol 29 L Cholesterol/HDL Ratio 2.9 Bedside Glucose 107 Test 12/10/16 07:00 12/10/16 07:56 Blood Gas Specimen Source Blood arterial Arterial Blood Date Drawn 12/10/2016 7:30:39 AM Arterial Blood pH (Temp corrected) 7.458 H Arterial Blood pCO2 (Temp correct) 30.8 L Arterial Blood pO2 (Temp corrected) 110.7 H Arterial Blood HCO3 21.3 L Arterial Blood Base Excess -1.9 Arterial Blood Oxygen Saturation 97.8 Derek Test ACCEPTAB Arterial Blood Gas Puncture Site Right Brachial Arterial Blood Carboxyhemoglobin 0.3 Arterial Blood Methemoglobin 0.4 Blood Gas A-a O2 Differential 139.1 H Oxyhemoglobin Percent 97.1 Total Hemoglobin 10.0 L Blood Gas Temperature 37.0 Blood Gas Respiration Rate 20.0 Blood Gas Actual Respiration Rate 20 Blood Gas Modality VENT - AC FiO2 40.0 Blood Gas Tidal Volume 550.0 Blood Gas Low PEEP Setting 5.0 Blood Gas Notified Whom K B Blood Gas Notified Time 12/10/2016 8:11:04 AM Bedside Glucose 93 Medications Medications Current Medications Diagnostic Test (Pha) (Accu-Chek) 1 ea 02 XX Last administered on 12/10/16 02: 00; Admin Dose 1 EA; Start 12/03/16 at 02:00 Ondansetron HCl (Zofran Inj) 4 mg Q6H PRN IV NAUSEA AND/OR VOMITING; Start at 22:30 Miscellaneous Information 1 ea NOTE XX ; Start 12/02/16 at 23:00 Glucose (Glutose) 15 gm Q15M PRN PO DECREASED GLUCOSE; Start 12/02/16 at 23:00 Glucose (Glutose) 22.5 gm Q15M PRN PO DECREASED GLUCOSE; Start 12/02/16 at 23: 00 Dextrose (D50w Syringe) 25 ml Q15M PRN IV DECREASED GLUCOSE Last administered on 12/10/16 05:52; Admin Dose 25 ML; Start 12/02/16 at 23:00 Dextrose (D50w Syringe) 50 ml Q15M PRN IV DECREASED GLUCOSE; Start 12/02/16 at 23:00 Glucagon (Glucagen) 1 mg Q15M PRN IM DECREASED GLUCOSE; Start 12/02/16 at 23:00 Glucose (Glutose) 15 gm Q15M PRN BUCCAL DECREASED GLUCOSE; Start 12/02/16 at 23 :00 Aspirin (Halfprin) 81 mg DAILY PO Last administered on 12/08/16 08:38; Admin Dose 81 MG; Start 12/03/16 at 09:00 Gabapentin (Neurontin) 800 mg TID PO Last administered on 12/08/16 20:33; Admin Dose 800 MG; Start 12/03/16 at 09:00; Status Future Hold Meclizine HCl (Antivert) 25 mg TID PRN PO dizziness Last administered on 10:04; Admin Dose 25 MG; Start 12/02/16 at 23:00 Terazosin HCl (Hytrin) 5 mg HS PO Last administered on 12/07/16 20:28; Admin Dose 5 MG; Start 12/03/16 at 21:00; Status Future Hold Acetaminophen/ Hydrocodone Bitart ([place] (5/325)) 1 tab Q6H PRN PO PAIN LEVEL 4 -7; Start 12/02/16 at 23:30 Acetaminophen (Tylenol Tab) 650 mg Q6H PRN PO PAIN AND OR ELEVATED TEMP; Start 12/02/16 at 23:30 Docusate Sodium (Colace) 100 mg BID PO Last administered on 12/08/16 20:32; Admin Dose 100 MG; Start 12/03/16 at 09:00; Status Future Hold Hydralazine HCl (Apresoline) 10 mg Q6H PRN IV ELEVATED SYSTOLIC BP; Start 12/02 at 23:30 Pantoprazole (Protonix Tab) 40 mg DAILY@06 PO Last administered on 12/09/16 05 :25; Admin Dose 40 MG; Start 12/03/16 at 06:00 Zolpidem Tartrate (Ambien) 5 mg HS PRN PO INSOMNIA; Start 12/02/16 at 23:30 Benazepril HCl (Lotensin) 10 mg DAILY PO Last administered on 12/07/16 08:26; Admin Dose 10 MG; Start 12/04/16 at 09:00; Status Future Hold Insulin Glargine 25 unit 25 unit DAILY SC Last administered on 12/09/16 08:24 ; Admin Dose 25 UNIT; Start 12/06/16 at 09:00 Sodium Chloride (1/2 NS) 1,000 ml @ 70 mls/hr [id number] IV Last administered on 12/10/16 05:55; Admin Dose 70 MLS/HR; Start 12/07/16 at 12:30 Collagenase (Santyl) 1 applic DAILY TOP Last administered on 12/10/16 08:17; Admin Dose 1 APPLIC; Start 12/07/16 at 16:00 Lorazepam (Ativan) 2 mg Q2 PRN IV AGITATION/ANXIETY; Start 12/09/16 at 09:30 Morphine Sulfate (morphine) 2 mg Q2H PRN IV PAIN; Start 12/09/16 at 09:30 Acetaminophen 650 mg 650 mg Q6H PRN NC ELEVATED TEMPERATURE Last administered on 12/09/16 17:53; Admin Dose 650 MG; Start 12/09/16 at 17:00 Piperacillin Sod/ Tazobactam Sod (Zosyn 2.25gm/ 50ml (Pmx)) 50 ml @ 100 mls/hr Q12 IVPB Last administered on 12/10/16 08:17; Admin Dose 100 MLS/HR; Start at 21:00 Metoprolol Tartrate 5 mg 5 mg Q4H PRN IV HR>100 Last administered on 12/09/16 17:53; Admin Dose 5 MG; Start 12/09/16 at 17:48 Phenylephrine HCl/ Dextrose (Fernandez-Syneph/D5W) 500 ml @ 75 mls/hr TITRATE IV Last administered on 12/10/16 06:02; Admin Dose 10 MLS/HR; Start 12/09/16 at 22 :00 Heparin Sodium (Porcine) (Heparin (5000 Units/0.5 ml)) 5,000 unit Q8 SC Last administered on 12/10/16 05:39; Admin Dose 5,000 UNIT; Start 12/10/16 at 06:00 TASHIA MCGARRY MD Dec 10, 2016 11:05
[2016-12-10] MEDS ORDERED: HEPARIN 1000 UNITS/ML 10 ML INJ IV ONE (12:30)
--- NOTE | 2016-12-10 12:30 | CONS ---
Date/Time of Note Date/Time of Note DATE: 12/10/16 TIME: 12:23 Assessment/Plan Assessment/Plan Chief Complaint/Hosp Course IMPRESSION: 1. Atrial fibrillation-having some PAF this am with mild RVR 2. Hypotension on Fernandez-Synephrine pressor support. 3. Abnormal electrocardiogram with inferolateral T-wave inversions. 4. Respiratory failure, status post intubation. 5. Nonhealing toe ulceration. 6. Peripheral arterial disease by arterial ultrasound of the lower extremities this admission. 7. Diabetes mellitus. 8. Fevers. 9. Positive troponin-slowly downtrending s/p TRAVEL COTA Recc: -Tele -serial ecg -wean fernandez and follow BP closely -HD for volume removal -Trend cardiac enzymes -Continue asa as able when has po access -start heparin given recurrent AF/positive troponin -PO amio in attempt to now maintain SR Problems: Consultation Date/Type/Reason Admit Date/Time Dec 02, 2016 at 21:01 Initial Consult Date 12/03/16 Type of Consultation: Cardiology Reason for Consultation PAF Referring Provider: VIET PARKER MD Exam/Review of Systems Vital Signs Vitals Vital Signs Date Time Temp Pulse Resp B/P Pulse Ox O2 Delivery O2 Flow Rate FiO2 12/10/16 10:00 81 20 112/74 96 Mechanical Ventilator 12/10/16 08:00 40 12/10/16 08:00 98.6 12/09/16 01:45 2.0 Intake and Output 12/09/16 12/09/16 12/10/16 15:00 23:00 07:00 Intake Total 540 ml 627 ml 720 ml Output Total 35 ml 20 ml Balance 505 ml 607 ml 720 ml Exam Review of Systems: CONSTITUTIONAL: No fevers, chills. PULMONARY: intubated CARDIOVASCULAR: No obvious chest pain/palpitations GASTROINTESTINAL: No nausea/vomiting. GENITOURINARY: No hematuria/dysuria. MUSCULOSKELETAL: No obvious myagias/arthalgias. PSYCHIATRIC: The patient denies depression. NEUROLOGIC: No weakness Constitutional: alert, oriented Psych: no complaints Head: normocephalic ENMT: mucosa pink and moist Neck: jvd (9 cm water), supple Respiratory: diminished breath sounds (at bases/B) Cardiovascular: regular rate and rhythm Gastrointestinal: non-tender, soft Musculoskeletal: muscle tone (normal) Extremities: edema (trace/B) Neurological: other (No focal deficits) Results Result Diagram: 12/10/16 0345 12/10/16 0345 Results 24 hrs Laboratory Tests Test 12/09/16 12:27 12/09/16 18:02 12/09/16 18:20 12/09/16 21:43 Bedside Glucose 172 145 94 Lactic Acid Level 1.8 Thyroid Stimulating Hormone (TSH) 0.611 Test 12/10/16 01:00 12/10/16 03:45 12/10/16 05:50 12/10/16 06:19 Creatine Kinase 66 56 Creatine Kinase Index 3.1 2.7 Creatinine Kinase MB (Mass) 2.07 1.52 Troponin I 3.920 *H 3.630 *H White Blood Count 10.7 # Red Blood Count 2.81 L Hemoglobin 8.8 L Hematocrit 27.0 L Mean Corpuscular Volume 96.1 Mean Corpuscular Hemoglobin 31.3 Mean Corpuscular Hemoglobin Concent 32.6 Red Cell Distribution Width 12.6 Platelet Count 169 # Mean Platelet Volume 11.1 H Neutrophils % 80.9 H Lymphocytes % 7.3 L Monocytes % 10.6 Eosinophils % 0.2 Basophils % 0.3 Nucleated Red Blood Cells % 0.0 Neutrophils # 8.7 H Lymphocytes # 0.8 Monocytes # 1.1 H Eosinophils # 0.0 Basophils # 0.0 Nucleated Red Blood Cells # 0.0 Sodium Level 132 L Potassium Level 3.9 Chloride Level 101 Carbon Dioxide Level 25 Anion Gap 10 # Blood Urea Nitrogen 31 H Creatinine 6.56 H Glucose Level 66 #L Calcium Level 7.2 L Phosphorus Level 5.5 H Magnesium Level 1.9 Total Bilirubin 0.2 Direct Bilirubin 0.00 Indirect Bilirubin 0.2 Aspartate Amino Transf (AST/SGOT) 30 Alanine Aminotransferase (ALT/SGPT) 33 Alkaline Phosphatase 51 Total Protein 5.8 L Albumin 2.8 L Globulin 3.00 Albumin/Globulin Ratio 0.93 Triglycerides Level 82 Cholesterol Level 86 L LDL Cholesterol, Calculated 41 HDL Cholesterol 29 L Cholesterol/HDL Ratio 2.9 Bedside Glucose 107 Test 12/10/16 07:00 12/10/16 07:56 12/10/16 11:12 Blood Gas Specimen Source Blood arterial Arterial Blood Date Drawn 12/10/2016 7:30:39 AM Arterial Blood pH (Temp corrected) 7.458 H Arterial Blood pCO2 (Temp correct) 30.8 L Arterial Blood pO2 (Temp corrected) 110.7 H Arterial Blood HCO3 21.3 L Arterial Blood Base Excess -1.9 Arterial Blood Oxygen Saturation 97.8 Derek Test ACCEPTAB Arterial Blood Gas Puncture Site Right Brachial Arterial Blood Carboxyhemoglobin 0.3 Arterial Blood Methemoglobin 0.4 Blood Gas A-a O2 Differential 139.1 H Oxyhemoglobin Percent 97.1 Total Hemoglobin 10.0 L Blood Gas Temperature 37.0 Blood Gas Respiration Rate 20.0 Blood Gas Actual Respiration Rate 20 Blood Gas Modality VENT - AC FiO2 40.0 Blood Gas Tidal Volume 550.0 Blood Gas Low PEEP Setting 5.0 Blood Gas Notified Whom K B Blood Gas Notified Time 12/10/2016 8:11:04 AM Bedside Glucose 93 99 Medications Medications Current Medications Diagnostic Test (Pha) (Accu-Chek) 1 ea 02 XX Last administered on 12/10/16 02: 00; Admin Dose 1 EA; Start 12/03/16 at 02:00 Ondansetron HCl (Zofran Inj) 4 mg Q6H PRN IV NAUSEA AND/OR VOMITING; Start at 22:30 Miscellaneous Information 1 ea NOTE XX ; Start 12/02/16 at 23:00 Glucose (Glutose) 15 gm Q15M PRN PO DECREASED GLUCOSE; Start 12/02/16 at 23:00 Glucose (Glutose) 22.5 gm Q15M PRN PO DECREASED GLUCOSE; Start 12/02/16 at 23: 00 Dextrose (D50w Syringe) 25 ml Q15M PRN IV DECREASED GLUCOSE Last administered on 12/10/16 05:52; Admin Dose 25 ML; Start 12/02/16 at 23:00 Dextrose (D50w Syringe) 50 ml Q15M PRN IV DECREASED GLUCOSE; Start 12/02/16 at 23:00 Glucagon (Glucagen) 1 mg Q15M PRN IM DECREASED GLUCOSE; Start 12/02/16 at 23:00 Glucose (Glutose) 15 gm Q15M PRN BUCCAL DECREASED GLUCOSE; Start 12/02/16 at 23 :00 Aspirin (Halfprin) 81 mg DAILY PO Last administered on 12/08/16 08:38; Admin Dose 81 MG; Start 12/03/16 at 09:00 Gabapentin (Neurontin) 800 mg TID PO Last administered on 12/08/16 20:33; Admin Dose 800 MG; Start 12/03/16 at 09:00; Status Future Hold Meclizine HCl (Antivert) 25 mg TID PRN PO dizziness Last administered on 10:04; Admin Dose 25 MG; Start 12/02/16 at 23:00 Terazosin HCl (Hytrin) 5 mg HS PO Last administered on 12/07/16 20:28; Admin Dose 5 MG; Start 12/03/16 at 21:00; Status Future Hold Acetaminophen/ Hydrocodone Bitart ([place] (5/325)) 1 tab Q6H PRN PO PAIN LEVEL 4 -7; Start 12/02/16 at 23:30 Acetaminophen (Tylenol Tab) 650 mg Q6H PRN PO PAIN AND OR ELEVATED TEMP; Start 12/02/16 at 23:30 Docusate Sodium (Colace) 100 mg BID PO Last administered on 12/08/16 20:32; Admin Dose 100 MG; Start 12/03/16 at 09:00; Status Future Hold Hydralazine HCl (Apresoline) 10 mg Q6H PRN IV ELEVATED SYSTOLIC BP; Start 12/02 at 23:30 Pantoprazole (Protonix Tab) 40 mg DAILY@06 PO Last administered on 12/09/16 05 :25; Admin Dose 40 MG; Start 12/03/16 at 06:00 Zolpidem Tartrate (Ambien) 5 mg HS PRN PO INSOMNIA; Start 12/02/16 at 23:30 Benazepril HCl (Lotensin) 10 mg DAILY PO Last administered on 12/07/16 08:26; Admin Dose 10 MG; Start 12/04/16 at 09:00; Status Future Hold Insulin Glargine 25 unit 25 unit DAILY SC Last administered on 12/09/16 08:24 ; Admin Dose 25 UNIT; Start 12/06/16 at 09:00 Sodium Chloride (1/2 NS) 1,000 ml @ 70 mls/hr [id number] IV Last administered on 12/10/16 05:55; Admin Dose 70 MLS/HR; Start 12/07/16 at 12:30 Collagenase (Santyl) 1 applic DAILY TOP Last administered on 12/10/16 08:17; Admin Dose 1 APPLIC; Start 12/07/16 at 16:00 Lorazepam (Ativan) 2 mg Q2 PRN IV AGITATION/ANXIETY; Start 12/09/16 at 09:30 Morphine Sulfate (morphine) 2 mg Q2H PRN IV PAIN; Start 12/09/16 at 09:30 Acetaminophen 650 mg 650 mg Q6H PRN MD ELEVATED TEMPERATURE Last administered on 12/09/16 17:53; Admin Dose 650 MG; Start 12/09/16 at 17:00 Piperacillin Sod/ Tazobactam Sod (Zosyn 2.25gm/ 50ml (Pmx)) 50 ml @ 100 mls/hr Q12 IVPB Last administered on 12/10/16 08:17; Admin Dose 100 MLS/HR; Start at 21:00 Metoprolol Tartrate 5 mg 5 mg Q4H PRN IV HR>100 Last administered on 12/09/16 17:53; Admin Dose 5 MG; Start 12/09/16 at 17:48 Phenylephrine HCl/ Dextrose (Fernandez-Syneph/D5W) 500 ml @ 75 mls/hr TITRATE IV Last administered on 12/10/16 06:02; Admin Dose 10 MLS/HR; Start 12/09/16 at 22 :00 Heparin Sodium (Porcine) (Heparin (5000 Units/0.5 ml)) 5,000 unit Q8 SC Last administered on 12/10/16 05:39; Admin Dose 5,000 UNIT; Start 12/10/16 at 06:00 VICENTE LESLIE Dec 10, 2016 12:30
--- NOTE | 2016-12-10 12:36 | RADRPT ---
Vent Rate: 75 bpm RR Interval: 0 msec CO Interval: 160 msec QRS Duration: 82 msec QT Interval: 426 msec QTC Interval: 475 msec P-R-T [place]: 62 - 40 - 0 degrees Sinus rhythm with premature atrial complexes T wave abnormality, consider inferolateral ischemia Prolonged QT Abnormal ECG Electronically Signed By: Feroz Mena [id number]
[2016-12-10] MEDS: AMIODARONE 200 MG TAB PO SCH ×2 (13:00→21:12)
--- NOTE | 2016-12-10 13:30 | PN ---
Date/Time of Note Date/Time of Note DATE: 12/10/16 TIME: 13:22 Assessment/Plan VTE Prophylaxis VTE Prophylaxis Intervention: SCD's Lines/Catheters [facility] HD. W/ PIGTAIL Urinary Cath still in place: Yes Reason Cath still needed: urinary retention Assessment/Plan Chief Complaint/Hosp Course Assessment/Plan - Acute respiratory failure secondary to pulmonary edema, patient is currently intubated, on vent support. - Acute renal failure, most likely Vanco induced, Dr. Remy, nephrology consultation is appreciated. Started on hemodialysis. - Atrial fibrillation with rapid ventricular response, Dr. Cobian is following and cardiology consultation. - Hypertension, continued on pressors for hemodynamic support. - Diabetic foot ulcer of the left foot, Dr Lin is following in podiatry consultation. - Cellulitis of left foot, 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 and left fourth proximal phalanx per bone scan, continue antibiotics, Dr. Pascual is following in infection disease consultation. Continue antibiotics per ID. - IDDM, continue metformin and Lantus and pre-meal NovoLog. - Aortic stenosis - Diastolic dysfunction congestive heart failure with preserved ejection fraction of 60%. - Hypertension, continue benazepril. Further recommendations based on clinical course. Plan of care discussed with Dr. Heredia. Problems: Subjective 24 Hr Interval Summary Free Text/Dictation Patient is currently orally intubated on ventilator support, currently undergoing hemodialysis, on low-dose of pressor, patient is awake alert follows commands. Exam/Review of Systems Vital Signs Vitals Vital Signs Date Time Temp Pulse Resp B/P Pulse Ox O2 Delivery O2 Flow Rate FiO2 12/10/16 13:00 89 12/10/16 12:00 98.3 22 157/64 98 Mechanical Ventilator 12/10/16 11:40 40 12/09/16 01:45 2.0 Intake and Output 12/09/16 12/09/16 12/10/16 15:00 23:00 07:00 Intake Total 540 ml 627 ml 720 ml Output Total 35 ml 20 ml Balance 505 ml 607 ml 720 ml Exam Constitutional: alert, oriented Psych: no complaints Head: atraumatic, normocephalic Eyes: nl conjunctiva ENMT: nl external ears & nose Neck: non-tender, supple Respiratory: clear to auscultation, normal air movement Cardiovascular: nl pulses, regular rate and rhythm, systolic murmur Gastrointestinal: non-tender, soft Genitourinary - Male: nl penis Musculoskeletal: nl extremities to inspection Extremities: normal pulses Neurological: VP RESPIRATORY II-XII intact Skin: nl turgor, left big toe ulcer. Results Result Diagram: 12/10/16 0345 12/10/16 0345 Results 24 hrs Laboratory Tests Test 12/09/16 18:02 12/09/16 18:20 12/09/16 21:43 12/10/16 01:00 Bedside Glucose 145 94 Lactic Acid Level 1.8 Thyroid Stimulating Hormone (TSH) 0.611 Creatine Kinase 66 Creatine Kinase Index 3.1 Creatinine Kinase MB (Mass) 2.07 Troponin I 3.920 *H Test 12/10/16 03:45 12/10/16 05:50 12/10/16 06:19 12/10/16 07:00 White Blood Count 10.7 # Red Blood Count 2.81 L Hemoglobin 8.8 L Hematocrit 27.0 L Mean Corpuscular Volume 96.1 Mean Corpuscular Hemoglobin 31.3 Mean Corpuscular Hemoglobin Concent 32.6 Red Cell Distribution Width 12.6 Platelet Count 169 # Mean Platelet Volume 11.1 H Neutrophils % 80.9 H Lymphocytes % 7.3 L Monocytes % 10.6 Eosinophils % 0.2 Basophils % 0.3 Nucleated Red Blood Cells % 0.0 Neutrophils # 8.7 H Lymphocytes # 0.8 Monocytes # 1.1 H Eosinophils # 0.0 Basophils # 0.0 Nucleated Red Blood Cells # 0.0 Sodium Level 132 L Potassium Level 3.9 Chloride Level 101 Carbon Dioxide Level 25 Anion Gap 10 # Blood Urea Nitrogen 31 H Creatinine 6.56 H Glucose Level 66 #L Calcium Level 7.2 L Phosphorus Level 5.5 H Magnesium Level 1.9 Total Bilirubin 0.2 Direct Bilirubin 0.00 Indirect Bilirubin 0.2 Aspartate Amino Transf (AST/SGOT) 30 Alanine Aminotransferase (ALT/SGPT) 33 Alkaline Phosphatase 51 Total Protein 5.8 L Albumin 2.8 L Globulin 3.00 Albumin/Globulin Ratio 0.93 Triglycerides Level 82 Cholesterol Level 86 L LDL Cholesterol, Calculated 41 HDL Cholesterol 29 L Cholesterol/HDL Ratio 2.9 Creatine Kinase 56 Creatine Kinase Index 2.7 Creatinine Kinase MB (Mass) 1.52 Troponin I 3.630 *H Bedside Glucose 107 Blood Gas Specimen Source Blood arterial Arterial Blood Date Drawn 12/10/2016 7:30:39 AM Arterial Blood pH (Temp corrected) 7.458 H Arterial Blood pCO2 (Temp correct) 30.8 L Arterial Blood pO2 (Temp corrected) 110.7 H Arterial Blood HCO3 21.3 L Arterial Blood Base Excess -1.9 Arterial Blood Oxygen Saturation 97.8 Derek Test ACCEPTAB Arterial Blood Gas Puncture Site Right Brachial Arterial Blood Carboxyhemoglobin 0.3 Arterial Blood Methemoglobin 0.4 Blood Gas A-a O2 Differential 139.1 H Oxyhemoglobin Percent 97.1 Total Hemoglobin 10.0 L Blood Gas Temperature 37.0 Blood Gas Respiration Rate 20.0 Blood Gas Actual Respiration Rate 20 Blood Gas Modality VENT - AC FiO2 40.0 Blood Gas Tidal Volume 550.0 Blood Gas Low PEEP Setting 5.0 Blood Gas Notified Whom K B Blood Gas Notified Time 12/10/2016 8:11:04 AM Test 12/10/16 07:56 12/10/16 11:12 Bedside Glucose 93 99 Medications Medications Current Medications Diagnostic Test (Pha) (Accu-Chek) 1 ea 02 XX Last administered on 12/10/16 02: 00; Admin Dose 1 EA; Start 12/03/16 at 02:00 Ondansetron HCl (Zofran Inj) 4 mg Q6H PRN IV NAUSEA AND/OR VOMITING; Start at 22:30 Miscellaneous Information 1 ea NOTE XX ; Start 12/02/16 at 23:00 Glucose (Glutose) 15 gm Q15M PRN PO DECREASED GLUCOSE; Start 12/02/16 at 23:00 Glucose (Glutose) 22.5 gm Q15M PRN PO DECREASED GLUCOSE; Start 12/02/16 at 23: 00 Dextrose (D50w Syringe) 25 ml Q15M PRN IV DECREASED GLUCOSE Last administered on 12/10/16 05:52; Admin Dose 25 ML; Start 12/02/16 at 23:00 Dextrose (D50w Syringe) 50 ml Q15M PRN IV DECREASED GLUCOSE; Start 12/02/16 at 23:00 Glucagon (Glucagen) 1 mg Q15M PRN IM DECREASED GLUCOSE; Start 12/02/16 at 23:00 Glucose (Glutose) 15 gm Q15M PRN BUCCAL DECREASED GLUCOSE; Start 12/02/16 at 23 :00 Aspirin (Halfprin) 81 mg DAILY PO Last administered on 12/08/16 08:38; Admin Dose 81 MG; Start 12/03/16 at 09:00 Gabapentin (Neurontin) 800 mg TID PO Last administered on 12/08/16 20:33; Admin Dose 800 MG; Start 12/03/16 at 09:00; Status Future Hold Meclizine HCl (Antivert) 25 mg TID PRN PO dizziness Last administered on 10:04; Admin Dose 25 MG; Start 12/02/16 at 23:00 Terazosin HCl (Hytrin) 5 mg HS PO Last administered on 12/07/16 20:28; Admin Dose 5 MG; Start 12/03/16 at 21:00; Status Future Hold Acetaminophen/ Hydrocodone Bitart (Radisson (5/325)) 1 tab Q6H PRN PO PAIN LEVEL 4 -7; Start 12/02/16 at 23:30 Acetaminophen (Tylenol Tab) 650 mg Q6H PRN PO PAIN AND OR ELEVATED TEMP; Start 12/02/16 at 23:30 Docusate Sodium (Colace) 100 mg BID PO Last administered on 12/08/16 20:32; Admin Dose 100 MG; Start 12/03/16 at 09:00; Status Future Hold Hydralazine HCl (Apresoline) 10 mg Q6H PRN IV ELEVATED SYSTOLIC BP; Start 12/02 at 23:30 Pantoprazole (Protonix Tab) 40 mg DAILY@06 PO Last administered on 12/09/16 05 :25; Admin Dose 40 MG; Start 12/03/16 at 06:00 Zolpidem Tartrate (Ambien) 5 mg HS PRN PO INSOMNIA; Start 12/02/16 at 23:30 Benazepril HCl (Lotensin) 10 mg DAILY PO Last administered on 12/07/16 08:26; Admin Dose 10 MG; Start 12/04/16 at 09:00; Status Future Hold Insulin Glargine 25 unit 25 unit DAILY SC Last administered on 12/09/16 08:24 ; Admin Dose 25 UNIT; Start 12/06/16 at 09:00 Sodium Chloride (1/2 NS) 1,000 ml @ 70 mls/hr [id number] IV Last administered on 12/10/16 05:55; Admin Dose 70 MLS/HR; Start 12/07/16 at 12:30 Collagenase (Santyl) 1 applic DAILY TOP Last administered on 12/10/16 08:17; Admin Dose 1 APPLIC; Start 12/07/16 at 16:00 Lorazepam (Ativan) 2 mg Q2 PRN IV AGITATION/ANXIETY; Start 12/09/16 at 09:30 Morphine Sulfate (morphine) 2 mg Q2H PRN IV PAIN; Start 12/09/16 at 09:30 Acetaminophen 650 mg 650 mg Q6H PRN [place] ELEVATED TEMPERATURE Last administered on 12/09/16 17:53; Admin Dose 650 MG; Start 12/09/16 at 17:00 Piperacillin Sod/ Tazobactam Sod (Zosyn 2.25gm/ 50ml (Pmx)) 50 ml @ 100 mls/hr Q12 IVPB Last administered on 12/10/16 08:17; Admin Dose 100 MLS/HR; Start at 21:00 Metoprolol Tartrate 5 mg 5 mg Q4H PRN IV HR>100 Last administered on 12/09/16 17:53; Admin Dose 5 MG; Start 12/09/16 at 17:48 Phenylephrine HCl/ Dextrose (Fernandez-Syneph/D5W) 500 ml @ 75 mls/hr TITRATE IV Last administered on 12/10/16 06:02; Admin Dose 10 MLS/HR; Start 12/09/16 at 22 :00 Amiodarone HCl (Cordarone) 200 mg BID PO ; Start 12/10/16 at 13:00 KIMBERLY NOYOLA Dec 10, 2016 13:30
[2016-12-10 13:37] LABS: INR 1.17; PT RATIO 1.2
[2016-12-10 13:38] LABS: PARTIAL THROMBOPLASTIN TIME 37.4 Sec (25.0-35.0)
[2016-12-10 13:52] LABS: CK-MB 1.53 ng/ml (0.0-2.4); TROPONIN-I 2.55 ng/ml (0.00-0.12)
--- NOTE | 2016-12-10 13:56 | OPR ---
DATE OF OPERATION: 12/09/2016 PREOPERATIVE DIAGNOSIS: Renal failure. POSTOPERATIVE DIAGNOSIS: Renal failure. PROCEDURE PERFORMED: Right femoral hemodialysis catheter placement. SURGEON: Eric Wren MD ANESTHESIA: Local. CONSENT: Risks, benefits, complications, alternative therapies explained to the patient and the [facility], consent obtained. OPERATIVE TECHNIQUE: The patient was placed in supine position, prepped and draped in usual sterile fashion, 1% lidocaine was used throughout the operation for local anesthesia. Access was gained in the right common femoral vein. Guidewire was advanced through without any difficulty. Subcutaneou s tissues dilated. A 25 cm dialysis catheter was advanced over the guidewire, secured to skin using silk sutures. Both ports of the catheter were aspirated and injected using heparinized saline solu tion. The patient tolerated the procedure well. Dictated By: ERIC ABDUL/MICHELLE Conf#: [id number] DID#: [id number]
[2016-12-10] MEDS: HEPARIN 25000 UNITS/250 ML 250 ML IV SCH ×2 (14:03→21:40)
[2016-12-10 15:49] LABS: ADD SCAN DIFF NO
[2016-12-10 15:56] LABS: BASOPHILS % 0.3 % (0.0-2.0); EOSINOPHILS % 0.2 % (0.0-7.0); HEMATOCRIT 31.6 % (42.0-52.0); HEMOGLOBIN 10.5 g/dl (14.0-18.0); LYMPHOCYTES # 0.7 10^3/ul (0.8-2.9); LYMPHOCYTES % 5.1 % (15.0-51.0); MEAN CORPUSCULAR HEMOGLOBIN 31.7 pg (29.0-33.0); MEAN CORPUSCULAR HGB CONC 33.2 g/dl (32.0-37.0); MEAN CORPUSCULAR VOLUME 95.5 fl (82.0-101.0); MEAN PLATELET VOLUME 10.7 fl (7.4-10.4); MONOCYTE # 1.2 10^3/ul (0.3-0.9); MONOCYTES % 9.3 % (0.0-11.0); NEUTROPHIL # 10.9 10^3/ul (1.6-7.5); NEUTROPHILS % 84.6 % (39.0-77.0); PLATELET COUNT 163 10^3/UL (140-415); RED BLOOD COUNT 3.31 10^6/ul (4.70-6.10); RED CELL DISTRIBUTION WIDTH 12.6 % (11.5-14.5); WHITE BLOOD COUNT 12.9 10^3/ul (4.8-10.8)
--- NOTE | 2016-12-10 19:30 | RADRPT ---
Echocardiogram Report Patient Name: SHAUN MOULTON Gender: Male Date: 1950 Study Date: 10-Dec-2016 Customer Success Associate: Marian Mahmood RDCS Location: [facility] Ref. Physician: VICENTE COBIAN Quality: Good Procedures: Transthoracic echocardiogram with complete 2D, M-Mode, and doppler examination. Indications: Congestive Heart Failure. 2D/M Mode Doppler Measurement Value Normal Ranges Measurement Value Normal Ranges LVIDd 2D 4.7 3.5 - 5.6 cm VIRGINIE Vmax 0.5 cm2 LVIDs 2D 3.6 2.1 - 4.1 cm VIRGINIE VTI 0.5 cm2 LVPWd 2D 1.0 0.6 - 1.1 cm AV Mean Vlad 3.2 m/sec IVSd 2D 0.9 0.6 - 1.1 cm AV Mean PG 46.5 mmHg AoR Diam 2D 2.9 2.0 - 3.7 cm AV Peak Vlad 4.6 m/sec EDV 2D 101.1 cm3 AV Peak PG 84.1 mmHg ESV 2D 47.2 cm3 AV VTI 101.7 cm LA Dimen 2D 3.9 2.3 - 4.0 cm LVOT Mean Vlad 0.6 m/sec LVOT Diam 1.9 cm LVOT Mean PG 1.5 mmHg LVOT Peak Vlad 0.8 m/sec LVOT Peak PG 2.6 mmHg LVOT VTI 19.3 cm MV E Peak Vlad 1.7 m/sec MV A Peak Vlad 1.5 m/sec MV E/A 1.1 MV PHT 87.8 msec MV Peak Vlad 1.9 m/sec MV Peak PG 13.7 mmHg MV Mean Vlad 1.2 m/sec MV Mean PG 6.7 mmHg MV Decel Time 237 msec MV Decel Stanly 7 MV E/A 1.1 MV PHT 87.8 msec MV VTI 56.5 cm MVA PHT 2.5 cm2 TR Peak Vlad 2.8 m/sec TR Peak PG 30.7 mmHg RVSP 46.0 mmHg Findings Left Ventricle: Normal left ventricular cavity size. Normal left ventricular wall thickness. Mild global left ventricular systolic dysfunction. Ejection fraction is visually estimated at 4550 %. Right Ventricle: Normal right ventricular size. Normal right ventricular systolic function. Left Atrium: The left atrium is normal in size. Right Atrium: The right atrium is normal in size. Mitral Valve: Moderate mitral leaflet calcification. Moderate mitral annular calcification. Moderate mitral stenosis. Mitral valve Max Velocity 1.85 m/sec. MaxPG 13.70 mmHg. MeanPG 6.70 mmHg. Mitral Valve Area by Continuity0.90 cm2. Aortic Valve: Severe aortic stenosis. Aortic valve Max velocity 4.59 m/sec. Max PG 84.10 mmHg. Mean PG 46.50 mmHg. Aortic valve area 0.50 cm2. Aortic cusps appear severely calcified. Trace aortic valve regurgitation. Tricuspid Valve: Normal appearance of the tricuspid valve. Estimated peak PA systolic pressure 46 mmHg. There is mild tricuspid regurgitation. Pulmonic Valve: Pulmonic valve not well visualized. Pericardium: Normal pericardium with no significant pericardial effusion. Left pleural effusion seen. Aorta: Normal aortic root. IVC: Dilated inferior vena cava without respiratory collapse, however, patient on ventilator. Conclusions 1.Normal left ventricular cavity size. Normal left ventricular wall thickness. Mild global left ventricular systolic dysfunction. Ejection fraction is visually estimated at 45-50 %. 2.Moderate mitral leaflet calcification. Moderate mitral annular calcification. Moderate mitral stenosis. MeanPG 6.70 mmHg. Mitral Valve Area by Continuity0.90 cm2. 3.Severe aortic stenosis. Mean PG 46.50 mmHg. Aortic valve area 0.50 cm2. Aortic cusps appear severely calcified. Trace aortic valve regurgitation. 4.Normal appearance of the tricuspid valve. Estimated peak PA systolic pressure 46 mmHg. There is mild tricuspid regurgitation. Electronically Signed By: Vicente Cobian 10-Dec-2016 19:30:13 -0700 Patient Name: SHAUN MOULTON Study Date: 10-Dec-2016 [id number]
--- NOTE | 2016-12-10 20:50 | PN ---
Date/Time of Note Date/Time of Note DATE: 12/10/16 TIME: 20:47 Assessment/Plan Lines/Catheters IV Catheter Type (from [facility]): Peripheral IV Molina in Place (from [facility]): Yes Assessment/Plan Chief Complaint/Hosp Course -Bilateral lower extremity atherosclerosis with left first toe plantar ulcer: It seems the patient has developed a first toe plantar ulcer,and diabetic foot infection which may be related to his fall over a week ago. The bilateral lower extremity noninvasive vascular studies demonstrated some infrapopliteal disease as the patient does not have palpable pedal pulses and has been a long time smoker. -Continue with antibiotics -No further vascular intervention for now. Will follow the wound progress and would recommend an angiogram with possible intervention if needed -Optimize vascular status (BP meds, diet, nutrition, exercise, sugar control, antiplatelets, weight loss). -Discussed smoking cessation with the patient and he understands. -Discussed findings, plan and management with the patient with a certified agricultural systems specialist and he understands. -Thank you for allowing us to partake in the care of your patient. Please call with any questions. Problems: Subjective 24 Hr Interval Summary no new vascular events overnight Exam/Review of Systems Vital Signs Vitals Vital Signs Date Time Temp Pulse Resp B/P Pulse Ox O2 Delivery O2 Flow Rate FiO2 12/10/16 18:20 97 3.0 12/10/16 18:00 99 24 89/48 Mechanical Ventilator 12/10/16 13:40 40 12/10/16 12:00 98.3 Intake and Output 12/09/16 12/09/16 12/10/16 15:00 23:00 07:00 Intake Total 540 ml 627 ml 720 ml Output Total 35 ml 20 ml Balance 505 ml 607 ml 720 ml Exam Free Text/Dictation GENERAL: Alert and oriented x3, PULMONARY: Clear to auscultation bilaterally CARDIOVASCULAR: S1, S2 present ABDOMEN: Soft, nontender, nondistended. Bowel sounds positive. EXTREMITIES: Right lower extremity: Palpable femoral pulse, nonpalpable pedal pulse. Motor , sensory intact. Cap refill 3 to 4 seconds. No ulcers identified. Left lower extremity: Palpable femoral pulse, nonpalpable pedal pulse. Motor and sensory intact. Cap refill 3 to 4 seconds. First toe with erythema and edema about 1+ improving. Plantar ulcer at the base of the 1st metatarsal with callus and erythema. No drainage Results Result Diagram: 12/10/16 1535 12/10/16 0345 KARLOINE SHOEMAKER MD Dec 10, 2016 20:50
[2016-12-10] MEDS: HYDROCODONE/APAP (5/325) TAB PO PRN ×2 (21:26→21:31)
[2016-12-10] MEDS: METOPROLOL 5 MG INJ IV PRN (22:23)
[2016-12-11] VITALS (36 sets, daily range): BP systolic 103–161; BP diastolic 45–118; PULSE 70–163; RESP 10–23
[2016-12-11] MEDS: ACCU-CHEK XX SCH (02:00)
[2016-12-11 03:51] LABS: ADD SCAN DIFF NO; BASOPHIL # 0.1 10^3/ul (0.0-0.1); BASOPHILS % 0.4 % (0.0-2.0); EOSINOPHILS % 0.2 % (0.0-7.0); HEMATOCRIT 27.8 % (42.0-52.0); HEMOGLOBIN 9.2 g/dl (14.0-18.0); LYMPHOCYTES # 0.8 10^3/ul (0.8-2.9); LYMPHOCYTES % 6.7 % (15.0-51.0); MEAN CORPUSCULAR HEMOGLOBIN 31.8 pg (29.0-33.0); MEAN CORPUSCULAR HGB CONC 33.1 g/dl (32.0-37.0); MEAN CORPUSCULAR VOLUME 96.2 fl (82.0-101.0); MEAN PLATELET VOLUME 10.6 fl (7.4-10.4); MONOCYTE # 1.1 10^3/ul (0.3-0.9); MONOCYTES % 9.2 % (0.0-11.0); NEUTROPHIL # 10.1 10^3/ul (1.6-7.5); PLATELET COUNT 148 10^3/UL (140-415); RED BLOOD COUNT 2.89 10^6/ul (4.70-6.10); RED CELL DISTRIBUTION WIDTH 12.6 % (11.5-14.5); WHITE BLOOD COUNT 12.2 10^3/ul (4.8-10.8)
[2016-12-11 04:09] LABS: POTASSIUM 4.2 mmol/L (3.5-5.1)
[2016-12-11 04:11] LABS: CREATININE 6.99 mg/dl (0.61-1.24)
[2016-12-11 04:12] LABS: CALCIUM 7.3 mg/dl (8.4-10.2); PHOSPHORUS 7.3 mg/dl (2.5-4.9)
[2016-12-11] MEDS: HEPARIN 25000 UNITS/250 ML 250 ML IV SCH ×3 (04:33→18:23)
[2016-12-11] MEDS: PANTOPRAZOLE (EC) 40 MG TAB PO SCH (06:39)
[2016-12-11] MEDS: INSULIN ASPART [NOVOLOG] 3 ML PEN SC SCH ×7 (07:35→20:48)
--- NOTE | 2016-12-11 08:56 | PN ---
Date/Time of Note Date/Time of Note DATE: 12/11/16 TIME: 08:54 Assessment/Plan Lines/Catheters IV Catheter Type (from [facility]): QC. W/ PIGTAIL Molina in Place (from [facility]): Yes Assessment/Plan Chief Complaint/Hosp Course -Bilateral lower extremity atherosclerosis with left first toe plantar ulcer: It seems the patient has developed a first toe plantar ulcer,and diabetic foot infection which may be related to his fall over a week ago. The bilateral lower extremity noninvasive vascular studies demonstrated some infrapopliteal disease as the patient does not have palpable pedal pulses and has been a long time smoker. -Continue with antibiotics -No vascular intervention for now. Will follow the wound progress closely and would recommend an angiogram with possible intervention if poor wound healing arises -Optimize vascular status (BP meds, diet, nutrition, exercise, sugar control, antiplatelets, weight loss). -Discussed smoking cessation with the patient and he understands. -Discussed findings, plan and management with the patient with a certified last sawyer and he understands. -Thank you for allowing us to partake in the care of your patient. Please call with any questions. Problems: Subjective 24 Hr Interval Summary no new vascular events overnight Exam/Review of Systems Vital Signs Vitals Vital Signs Date Time Temp Pulse Resp B/P Pulse Ox O2 Delivery O2 Flow Rate FiO2 12/11/16 08:30 76 12/11/16 07:00 18 127/110 98 Nasal Cannula 2.0 12/11/16 04:00 99.0 12/10/16 13:40 40 Intake and Output 12/10/16 12/10/16 12/11/16 15:00 23:00 07:00 Intake Total 975.0 ml 578.5 ml 778.5 ml Output Total 2510 ml 0 ml 35 ml Balance -1535.0 ml 578.5 ml 743.5 ml Exam Free Text/Dictation GENERAL: Alert and oriented x3, PULMONARY: Clear to auscultation bilaterally CARDIOVASCULAR: S1, S2 present ABDOMEN: Soft, nontender, nondistended. Bowel sounds positive. EXTREMITIES: Right lower extremity: Palpable femoral pulse, nonpalpable pedal pulse. Motor , sensory intact. Cap refill 3 to 4 seconds. No ulcers identified. Left lower extremity: Palpable femoral pulse, nonpalpable pedal pulse. Motor and sensory intact. Cap refill 3 to 4 seconds. First toe with erythema and edema about 1+ improving. Plantar ulcer at the base of the 1st metatarsal with callus and erythema. No drainage Results Result Diagram: 12/11/16 0330 12/11/16329 KAROLINE SHOEMAKER MD Dec 11, 2016 08:56
[2016-12-11] MEDS: COLLAGENASE 30 GM TUBE TOP SCH (09:00)
--- NOTE | 2016-12-11 09:39 | CONS ---
TRAV SHEPARD 12/11/16 0939: Date/Time of Note Date/Time of Note DATE: 12/11/16 TIME: 09:39 Assessment/Plan Assessment/Plan Additional Assessment/Plan - SIRS, lactic acid 1.8 on 12/09/2016, cultures in progress--NTD - cardiopulmonary arrest on 12/09/2016, off vent, alert - diabetic infection of L 1st toe/foot. 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 and left fourth proximal phalanx - ARANZA, on HD from 12/09/2016 - A fib, in sinus as of this morning - troponin+ - DM - HTN recommendations: - pending results: blood cultures, urine culture (urinalysis could not be done due to low volume) - continue pip/tazo 12/03/2016, no draining wound to sample for culture in order to guide antibiotic therapy - ultimately, Pt Pt needs 6 weeks of antibiotics to treat 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 and left fourth proximal phalanx: 2016 through 01/15/2017 d/w Dr Moses Consultation Date/Type/Reason Admit Date/Time Dec 02, 2016 at 21:01 Initial Consult Date 12/03/16 Type of Consultation: ID Referring Provider: VIET PARKER MD 24 HR Interval Summary Free Text/Dictation Doesn't speak Amharic. Undergoing HD. Comforable, NAD, VSS, Afeb Constitutional: no complaints Exam/Review of Systems Vital Signs Vitals Vital Signs Date Time Temp Pulse Resp B/P Pulse Ox O2 Delivery O2 Flow Rate FiO2 12/11/16 09:00 81 12/11/16 07:00 18 127/110 98 Nasal Cannula 2.0 12/11/16 04:00 99.0 12/10/16 13:40 40 Intake and Output 12/10/16 12/10/16 12/11/16 15:00 23:00 07:00 Intake Total 975.0 ml 578.5 ml 778.5 ml Output Total 2510 ml 0 ml 35 ml Balance -1535.0 ml 578.5 ml 743.5 ml Exam Constitutional: alert, well developed Psych: no complaints Head: atraumatic, normocephalic Eyes: EOMI, nl conjunctiva ENMT: nl external ears & nose Neck: non-tender, supple Respiratory: clear to auscultation, normal air movement Cardiovascular: other (2/4 JAVIER), regular rate and rhythm Gastrointestinal: bowel sounds, non-tender, soft Extremities: normal pulses, other (Lt toe dsg CDI, nontender) Neurological: other (grossly nonfocal) Results Result Diagram: 12/11/16 0330 12/11/16 0330 Results 24 hrs Laboratory Tests Test 12/10/16 11:12 12/10/16 13:06 12/10/16 15:35 12/10/16 16:53 Bedside Glucose 99 93 Prothrombin Time 15.0 H Prothrombin Time Ratio 1.2 INR International Normalized Ratio 1.17 Activated Partial Thromboplast Time 37.4 H Creatine Kinase 52 Creatine Kinase Index 2.9 Creatinine Kinase MB (Mass) 1.53 Troponin I 2.550 *H White Blood Count 12.9 #H Red Blood Count 3.31 L Hemoglobin 10.5 L Hematocrit 31.6 L Mean Corpuscular Volume 95.5 Mean Corpuscular Hemoglobin 31.7 Mean Corpuscular Hemoglobin Concent 33.2 Red Cell Distribution Width 12.6 Platelet Count 163 Mean Platelet Volume 10.7 H Neutrophils % 84.6 H Lymphocytes % 5.1 L Monocytes % 9.3 Eosinophils % 0.2 Basophils % 0.3 Nucleated Red Blood Cells % 0.0 Neutrophils # 10.9 H Lymphocytes # 0.7 L Monocytes # 1.2 H Eosinophils # 0.0 Basophils # 0.0 Nucleated Red Blood Cells # 0.0 Test 12/10/16 20:45 12/10/16 21:11 12/11/16 03:30 12/11/16 08:44 Activated Partial Thromboplast Time 54.7 H 53.0 H Bedside Glucose 125 164 White Blood Count 12.2 H Red Blood Count 2.89 L Hemoglobin 9.2 L Hematocrit 27.8 L Mean Corpuscular Volume 96.2 Mean Corpuscular Hemoglobin 31.8 Mean Corpuscular Hemoglobin Concent 33.1 Red Cell Distribution Width 12.6 Platelet Count 148 Mean Platelet Volume 10.6 H Neutrophils % 83.0 H Lymphocytes % 6.7 L Monocytes % 9.2 Eosinophils % 0.2 Basophils % 0.4 Nucleated Red Blood Cells % 0.0 Neutrophils # 10.1 H Lymphocytes # 0.8 Monocytes # 1.1 H Eosinophils # 0.0 Basophils # 0.1 Nucleated Red Blood Cells # 0.0 Sodium Level 136 Potassium Level 4.2 Chloride Level 98 Carbon Dioxide Level 26 Anion Gap 16 Blood Urea Nitrogen 29 H Creatinine 6.99 H Glucose Level 195 # Calcium Level 7.3 L Phosphorus Level 7.3 H Magnesium Level 2.0 Medications Medications Current Medications Diagnostic Test (Pha) (Accu-Chek) 1 ea 02 XX Last administered on 12/10/16 02: 00; Admin Dose 1 EA; Start 12/03/16 at 02:00 Ondansetron HCl (Zofran Inj) 4 mg Q6H PRN IV NAUSEA AND/OR VOMITING; Start at 22:30 Miscellaneous Information 1 ea NOTE XX ; Start 12/02/16 at 23:00 Glucose (Glutose) 15 gm Q15M PRN PO DECREASED GLUCOSE; Start 12/02/16 at 23:00 Glucose (Glutose) 22.5 gm Q15M PRN PO DECREASED GLUCOSE; Start 12/02/16 at 23: 00 Dextrose (D50w Syringe) 25 ml Q15M PRN IV DECREASED GLUCOSE Last administered on 12/10/16 05:52; Admin Dose 25 ML; Start 12/02/16 at 23:00 Dextrose (D50w Syringe) 50 ml Q15M PRN IV DECREASED GLUCOSE; Start 12/02/16 at 23:00 Glucagon (Glucagen) 1 mg Q15M PRN IM DECREASED GLUCOSE; Start 12/02/16 at 23:00 Glucose (Glutose) 15 gm Q15M PRN BUCCAL DECREASED GLUCOSE; Start 12/02/16 at 23 :00 Aspirin (Halfprin) 81 mg DAILY PO Last administered on 12/08/16 08:38; Admin Dose 81 MG; Start 12/03/16 at 09:00 Gabapentin (Neurontin) 800 mg TID PO Last administered on 12/08/16 20:33; Admin Dose 800 MG; Start 12/03/16 at 09:00; Status Future Hold Meclizine HCl (Antivert) 25 mg TID PRN PO dizziness Last administered on 10:04; Admin Dose 25 MG; Start 12/02/16 at 23:00 Terazosin HCl (Hytrin) 5 mg HS PO Last administered on 12/07/16 20:28; Admin Dose 5 MG; Start 12/03/16 at 21:00; Status Future Hold Acetaminophen/ Hydrocodone Bitart ([place] (5/325)) 1 tab Q6H PRN PO PAIN LEVEL 4 -7 Last administered on 12/10/16 21:31; Admin Dose 1 TAB; Start 12/02/16 at 23: 30 Acetaminophen (Tylenol Tab) 650 mg Q6H PRN PO PAIN AND OR ELEVATED TEMP; Start 12/02/16 at 23:30 Docusate Sodium (Colace) 100 mg BID PO Last administered on 12/08/16 20:32; Admin Dose 100 MG; Start 12/03/16 at 09:00; Status Future Hold Hydralazine HCl (Apresoline) 10 mg Q6H PRN IV ELEVATED SYSTOLIC BP; Start 12/02 at 23:30 Pantoprazole (Protonix Tab) 40 mg DAILY@06 PO Last administered on 12/11/16 06 :39; Admin Dose 40 MG; Start 12/03/16 at 06:00 Zolpidem Tartrate (Ambien) 5 mg HS PRN PO INSOMNIA; Start 12/02/16 at 23:30 Benazepril HCl (Lotensin) 10 mg DAILY PO Last administered on 12/07/16 08:26; Admin Dose 10 MG; Start 12/04/16 at 09:00; Status Future Hold Insulin Glargine 25 unit 25 unit DAILY SC Last administered on 12/09/16 08:24 ; Admin Dose 25 UNIT; Start 12/06/16 at 09:00 Sodium Chloride (1/2 NS) 1,000 ml @ 70 mls/hr [id number] IV Last administered on 12/10/16 21:26; Admin Dose 70 MLS/HR; Start 12/07/16 at 12:30 Collagenase (Santyl) 1 applic DAILY TOP Last administered on 12/10/16 08:17; Admin Dose 1 APPLIC; Start 12/07/16 at 16:00 Lorazepam (Ativan) 2 mg Q2 PRN IV AGITATION/ANXIETY; Start 12/09/16 at 09:30 Morphine Sulfate (morphine) 2 mg Q2H PRN IV PAIN; Start 12/09/16 at 09:30 Acetaminophen 650 mg 650 mg Q6H PRN [place] ELEVATED TEMPERATURE Last administered on 12/09/16 17:53; Admin Dose 650 MG; Start 12/09/16 at 17:00 Piperacillin Sod/ Tazobactam Sod (Zosyn 2.25gm/ 50ml (Pmx)) 50 ml @ 100 mls/hr Q12 IVPB Last administered on 12/10/16 21:12; Admin Dose 100 MLS/HR; Start at 21:00 Metoprolol Tartrate 5 mg 5 mg Q4H PRN IV HR>100 Last administered on 12/10/16 22:23; Admin Dose 5 MG; Start 12/09/16 at 17:48 Phenylephrine HCl/ Dextrose (Fernandez-Syneph/D5W) 500 ml @ 75 mls/hr TITRATE IV Last administered on 12/10/16 06:02; Admin Dose 10 MLS/HR; Start 12/09/16 at 22 :00 Amiodarone HCl (Cordarone) 200 mg BID PO Last administered on 12/10/16 21:12; Admin Dose 200 MG; Start 12/10/16 at 13:00 CHRISTY MOSES M.D. 12/14/16 1150: Assessment/Plan Assessment/Plan Additional Assessment/Plan I discussed the management with YOHANNES Shepard and agree with above Exam/Review of Systems Results Result Diagram: 12/11/16 0330 12/11/16 0330 TRAV SHEPARD Dec 11, 2016 09:39 CHRISTY MOSES M.D. December 14, 2016 11:50
--- NOTE | 2016-12-11 09:51 | CONS ---
Date/Time of Note Date/Time of Note DATE: 12/11/16 TIME: 09:49 Assessment/Plan Assessment/Plan Additional Assessment/Plan Assessment recommendations; 1. Patient is status post respiratory failure due to acute renal injury. Currently getting hemodialysis. 2. Paroxysmal atrial fibrillation, currently in sinus rhythm. Continue current treatment. Patient can be transferred to telemetry unit or to the medical floor. Resume oral diet. Consultation Date/Type/Reason Admit Date/Time Dec 02, 2016 at 21:01 Initial Consult Date 12/03/16 Type of Consultation: Pulmonary/critical care Referring Provider: VIET PARKER MD 24 HR Interval Summary Free Text/Dictation Patient's condition is stable. He was extubated yesterday denies any shortness of breath chest pain wheezing cough sputum production. He is hungry and wants to eat. Denies any dysphagia. General exam; elderly male, awake alert currently in no distress. Exam/Review of Systems Vital Signs Vitals Vital Signs Date Time Temp Pulse Resp B/P Pulse Ox O2 Delivery O2 Flow Rate FiO2 12/11/16 09:00 81 12/11/16 07:00 18 127/110 98 Nasal Cannula 2.0 12/11/16 04:00 99.0 12/10/16 13:40 40 Intake and Output 12/10/16 12/10/16 12/11/16 15:00 23:00 07:00 Intake Total 975.0 ml 578.5 ml 778.5 ml Output Total 2510 ml 0 ml 35 ml Balance -1535.0 ml 578.5 ml 743.5 ml Exam HEENT exam is; supple neck, no JVD. No lymphadenopathy. Midline trachea. No thyromegaly. Pharynx is clear. Patient has dentures. Pupils are midsize reactive to light. Chest examination; clear to auscultation. S1-S2 audible, no murmurs. Regular rhythm. Abdomen examination; soft, no organomegaly. Bowel sounds audible. Extremity exam is; no peripheral edema. Pulses 1+ bilaterally. [employer] examination; no focal deficit. Results Result Diagram: 12/11/16 0330 12/11/16 0330 Results 24 hrs Laboratory Tests Test 12/10/16 11:12 12/10/16 13:06 12/10/16 15:35 12/10/16 16:53 Bedside Glucose 99 93 Prothrombin Time 15.0 H Prothrombin Time Ratio 1.2 INR International Normalized Ratio 1.17 Activated Partial Thromboplast Time 37.4 H Creatine Kinase 52 Creatine Kinase Index 2.9 Creatinine Kinase MB (Mass) 1.53 Troponin I 2.550 *H White Blood Count 12.9 #H Red Blood Count 3.31 L Hemoglobin 10.5 L Hematocrit 31.6 L Mean Corpuscular Volume 95.5 Mean Corpuscular Hemoglobin 31.7 Mean Corpuscular Hemoglobin Concent 33.2 Red Cell Distribution Width 12.6 Platelet Count 163 Mean Platelet Volume 10.7 H Neutrophils % 84.6 H Lymphocytes % 5.1 L Monocytes % 9.3 Eosinophils % 0.2 Basophils % 0.3 Nucleated Red Blood Cells % 0.0 Neutrophils # 10.9 H Lymphocytes # 0.7 L Monocytes # 1.2 H Eosinophils # 0.0 Basophils # 0.0 Nucleated Red Blood Cells # 0.0 Test 12/10/16 20:45 12/10/16 21:11 12/11/16 03:30 12/11/16 08:44 Activated Partial Thromboplast Time 54.7 H 53.0 H Bedside Glucose 125 164 White Blood Count 12.2 H Red Blood Count 2.89 L Hemoglobin 9.2 L Hematocrit 27.8 L Mean Corpuscular Volume 96.2 Mean Corpuscular Hemoglobin 31.8 Mean Corpuscular Hemoglobin Concent 33.1 Red Cell Distribution Width 12.6 Platelet Count 148 Mean Platelet Volume 10.6 H Neutrophils % 83.0 H Lymphocytes % 6.7 L Monocytes % 9.2 Eosinophils % 0.2 Basophils % 0.4 Nucleated Red Blood Cells % 0.0 Neutrophils # 10.1 H Lymphocytes # 0.8 Monocytes # 1.1 H Eosinophils # 0.0 Basophils # 0.1 Nucleated Red Blood Cells # 0.0 Sodium Level 136 Potassium Level 4.2 Chloride Level 98 Carbon Dioxide Level 26 Anion Gap 16 Blood Urea Nitrogen 29 H Creatinine 6.99 H Glucose Level 195 # Calcium Level 7.3 L Phosphorus Level 7.3 H Magnesium Level 2.0 Medications Medications Current Medications Diagnostic Test (Pha) (Accu-Chek) 1 ea XX Last administered on 12/10/16t 02: 00; Admin Dose 1 EA; Start 12/03/16 at 02:00 Ondansetron HCl (Zofran Inj) 4 mg Q6H PRN IV NAUSEA AND/OR VOMITING; Start at 22:30 Miscellaneous Information 1 ea NOTE XX ; Start 12/02/16 at 23:00 Glucose (Glutose) 15 gm Q15M PRN PO DECREASED GLUCOSE; Start 12/02/16 at 23:00 Glucose (Glutose) 22.5 gm Q15M PRN PO DECREASED GLUCOSE; Start 12/02/16 at 23: 00 Dextrose (D50w Syringe) 25 ml Q15M PRN IV DECREASED GLUCOSE Last administered on 12/10/16 05:52; Admin Dose 25 ML; Start 12/02/16 at 23:00 Dextrose (D50w Syringe) 50 ml Q15M PRN IV DECREASED GLUCOSE; Start 12/02/16 at 23:00 Glucagon (Glucagen) 1 mg Q15M PRN IM DECREASED GLUCOSE; Start 12/02/16 at 23:00 Glucose (Glutose) 15 gm Q15M PRN BUCCAL DECREASED GLUCOSE; Start 12/02/16 at 23 :00 Aspirin (Halfprin) 81 mg DAILY PO Last administered on 12/08/16 08:38; Admin Dose 81 MG; Start 12/03/16 at 09:00 Gabapentin (Neurontin) 800 mg TID PO Last administered on 12/08/16 20:33; Admin Dose 800 MG; Start 12/03/16 at 09:00; Status Future Hold Meclizine HCl (Antivert) 25 mg TID PRN PO dizziness Last administered on 10:04; Admin Dose 25 MG; Start 12/02/16 at 23:00 Terazosin HCl (Hytrin) 5 mg HS PO Last administered on 12/07/16 20:28; Admin Dose 5 MG; Start 12/03/16 at 21:00; Status Future Hold Acetaminophen/ Hydrocodone Bitart ([place] (5/325)) 1 tab Q6H PRN PO PAIN LEVEL 4 -7 Last administered on 12/10/16 21:31; Admin Dose 1 TAB; Start 12/02/16 at 23: 30 Acetaminophen (Tylenol Tab) 650 mg Q6H PRN PO PAIN AND OR ELEVATED TEMP; Start 12/02/16 at 23:30 Docusate Sodium (Colace) 100 mg BID PO Last administered on 12/08/16 20:32; Admin Dose 100 MG; Start 12/03/16 at 09:00; Status Future Hold Hydralazine HCl (Apresoline) 10 mg Q6H PRN IV ELEVATED SYSTOLIC BP; Start 12/02 at 23:30 Pantoprazole (Protonix Tab) 40 mg DAILY@06 PO Last administered on 12/11/16 06 :39; Admin Dose 40 MG; Start 12/03/16 at 06:00 Zolpidem Tartrate (Ambien) 5 mg HS PRN PO INSOMNIA; Start 12/02/16 at 23:30 Benazepril HCl (Lotensin) 10 mg DAILY PO Last administered on 12/07/16 08:26; Admin Dose 10 MG; Start 12/04/16 at 09:00; Status Future Hold Insulin Glargine 25 unit 25 unit DAILY SC Last administered on 12/09/16 08:24 ; Admin Dose 25 UNIT; Start 12/06/16 at 09:00 Sodium Chloride (1/2 NS) 1,000 ml @ 70 mls/hr [id number] IV Last administered on 12/10/16 21:26; Admin Dose 70 MLS/HR; Start 12/07/16 at 12:30 Collagenase (Santyl) 1 applic DAILY TOP Last administered on 12/10/16 08:17; Admin Dose 1 APPLIC; Start 12/07/16 at 16:00 Lorazepam (Ativan) 2 mg Q2 PRN IV AGITATION/ANXIETY; Start 12/09/16 at 09:30 Morphine Sulfate (morphine) 2 mg Q2H PRN IV PAIN; Start 12/09/16 at 09:30 Acetaminophen 650 mg 650 mg Q6H PRN [place] ELEVATED TEMPERATURE Last administered on 12/09/16 17:53; Admin Dose 650 MG; Start 12/09/16 at 17:00 Piperacillin Sod/ Tazobactam Sod (Zosyn 2.25gm/ 50ml (Pmx)) 50 ml @ 100 mls/hr Q12 IVPB Last administered on 12/10/16 21:12; Admin Dose 100 MLS/HR; Start at 21:00 Metoprolol Tartrate 5 mg 5 mg Q4H PRN IV HR>100 Last administered on 12/10/16 22:23; Admin Dose 5 MG; Start 12/09/16 at 17:48 Phenylephrine HCl/ Dextrose (Fernandez-Syneph/D5W) 500 ml @ 75 mls/hr TITRATE IV Last administered on 12/10/16 06:02; Admin Dose 10 MLS/HR; Start 12/09/16 at 22 :00 Amiodarone HCl (Cordarone) 200 mg BID PO Last administered on 12/10/16 21:12; Admin Dose 200 MG; Start 12/10/16 at 13:00 IKE MULLER Dec 11, 2016 09:51
--- NOTE | 2016-12-11 10:17 | PN ---
Date/Time of Note Date/Time of Note DATE: 12/11/16 TIME: 10:16 Assessment/Plan VTE Prophylaxis VTE Prophylaxis Intervention: other Lines/Catheters IV [facility] QC. W/ PIGTAIL Urinary Cath still in place: Yes Reason Cath still needed: skin wounds contaminated by urine Assessment/Plan Chief Complaint/Hosp Course - Acute respiratory failure secondary to pulmonary edema, has resolved - Acute renal failure, most likely Vanco induced, Dr. Remy, nephrology consultation is appreciated. On hemodialysis. - Atrial fibrillation with rapid ventricular response, Dr. Cobian is following and cardiology consultation. - Hypertension, continued on pressors for hemodynamic support. - Diabetic foot ulcer of the left foot, Dr Lin is following in podiatry consultation. - Cellulitis of left foot, 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 and left fourth proximal phalanx per bone scan, continue antibiotics, Dr. Pascual is following in infection disease consultation. Continue antibiotics per ID. - IDDM, continue metformin and Lantus and pre-meal NovoLog. - Aortic stenosis - Diastolic dysfunction congestive heart failure with preserved ejection fraction of 60%. - Hypertension, continue benazepril. Problems: Subjective 24 Hr Interval Summary Free Text/Dictation Patient has no complaints Exam/Review of Systems Vital Signs Vitals Vital Signs Date Time Temp Pulse Resp B/P Pulse Ox O2 Delivery O2 Flow Rate FiO2 12/11/16 09:30 84 12/11/16 07:00 18 127/110 98 Nasal Cannula 2.0 12/11/16 04:00 99.0 12/10/16 13:40 40 Intake and Output 12/10/16 12/10/16 12/11/16 15:00 23:00 07:00 Intake Total 975.0 ml 578.5 ml 778.5 ml Output Total 2510 ml 0 ml 35 ml Balance -1535.0 ml 578.5 ml 743.5 ml Exam Constitutional: well developed Head: atraumatic, normocephalic Neck: supple Respiratory: clear to auscultation Cardiovascular: regular rate and rhythm Gastrointestinal: non-tender, soft Extremities: normal pulses Results Result Diagram: 12/11/16 0330 12/11/16 0330 Results 24 hrs Laboratory Tests Test 12/10/16 11:12 12/10/16 13:06 12/10/16 15:35 12/10/16 16:53 Bedside Glucose 99 93 Prothrombin Time 15.0 H Prothrombin Time Ratio 1.2 INR International Normalized Ratio 1.17 Activated Partial Thromboplast Time 37.4 H Creatine Kinase 52 Creatine Kinase Index 2.9 Creatinine Kinase MB (Mass) 1.53 Troponin I 2.550 *H White Blood Count 12.9 #H Red Blood Count 3.31 L Hemoglobin 10.5 L Hematocrit 31.6 L Mean Corpuscular Volume 95.5 Mean Corpuscular Hemoglobin 31.7 Mean Corpuscular Hemoglobin Concent 33.2 Red Cell Distribution Width 12.6 Platelet Count 163 Mean Platelet Volume 10.7 H Neutrophils % 84.6 H Lymphocytes % 5.1 L Monocytes % 9.3 Eosinophils % 0.2 Basophils % 0.3 Nucleated Red Blood Cells % 0.0 Neutrophils # 10.9 H Lymphocytes # 0.7 L Monocytes # 1.2 H Eosinophils # 0.0 Basophils # 0.0 Nucleated Red Blood Cells # 0.0 Test 12/10/16 20:45 12/10/16 21:11 12/11/16 03:30 12/11/16 08:44 Activated Partial Thromboplast Time 54.7 H 53.0 H Bedside Glucose 125 164 White Blood Count 12.2 H Red Blood Count 2.89 L Hemoglobin 9.2 L Hematocrit 27.8 L Mean Corpuscular Volume 96.2 Mean Corpuscular Hemoglobin 31.8 Mean Corpuscular Hemoglobin Concent 33.1 Red Cell Distribution Width 12.6 Platelet Count 148 Mean Platelet Volume 10.6 H Neutrophils % 83.0 H Lymphocytes % 6.7 L Monocytes % 9.2 Eosinophils % 0.2 Basophils % 0.4 Nucleated Red Blood Cells % 0.0 Neutrophils # 10.1 H Lymphocytes # 0.8 Monocytes # 1.1 H Eosinophils # 0.0 Basophils # 0.1 Nucleated Red Blood Cells # 0.0 Sodium Level 136 Potassium Level 4.2 Chloride Level 98 Carbon Dioxide Level 26 Anion Gap 16 Blood Urea Nitrogen 29 H Creatinine 6.99 H Glucose Level 195 # Calcium Level 7.3 L Phosphorus Level 7.3 H Magnesium Level 2.0 Test 12/11/16 09:15 12/11/16 10:04 Activated Partial Thromboplast Time 47.0 H Bedside Glucose 156 Medications Medications Current Medications Diagnostic Test (Pha) (Accu-Chek) 1 ea 02 XX Last administered on 12/10/16 02: 00; Admin Dose 1 EA; Start 12/03/16 at 02:00 Ondansetron HCl (Zofran Inj) 4 mg Q6H PRN IV NAUSEA AND/OR VOMITING; Start at 22:30 Miscellaneous Information 1 ea NOTE XX ; Start 12/02/16 at 23:00 Glucose (Glutose) 15 gm Q15M PRN PO DECREASED GLUCOSE; Start 12/02/16 at 23:00 Glucose (Glutose) 22.5 gm Q15M PRN PO DECREASED GLUCOSE; Start 12/02/16 at 23: 00 Dextrose (D50w Syringe) 25 ml Q15M PRN IV DECREASED GLUCOSE Last administered on 12/10/16 05:52; Admin Dose 25 ML; Start 12/02/16 at 23:00 Dextrose (D50w Syringe) 50 ml Q15M PRN IV DECREASED GLUCOSE; Start 12/02/16 at 23:00 Glucagon (Glucagen) 1 mg Q15M PRN IM DECREASED GLUCOSE; Start 12/02/16 at 23:00 Glucose (Glutose) 15 gm Q15M PRN BUCCAL DECREASED GLUCOSE; Start 12/02/16 at 23 :00 Aspirin (Halfprin) 81 mg DAILY PO Last administered on 12/08/16 08:38; Admin Dose 81 MG; Start 12/03/16 at 09:00 Gabapentin (Neurontin) 800 mg TID PO Last administered on 12/08/16 20:33; Admin Dose 800 MG; Start 12/03/16 at 09:00; Status Future Hold Meclizine HCl (Antivert) 25 mg TID PRN PO dizziness Last administered on 10:04; Admin Dose 25 MG; Start 12/02/16 at 23:00 Terazosin HCl (Hytrin) 5 mg HS PO Last administered on 12/07/16 20:28; Admin Dose 5 MG; Start 12/03/16 at 21:00; Status Future Hold Acetaminophen/ Hydrocodone Bitart ([place] (5/325)) 1 tab Q6H PRN PO PAIN LEVEL 4 -7 Last administered on 12/10/16 21:31; Admin Dose 1 TAB; Start 12/02/16 at 23: 30 Acetaminophen (Tylenol Tab) 650 mg Q6H PRN PO PAIN AND OR ELEVATED TEMP; Start 12/02/16 at 23:30 Docusate Sodium (Colace) 100 mg BID PO Last administered on 12/08/16 20:32; Admin Dose 100 MG; Start 12/03/16 at 09:00; Status Future Hold Hydralazine HCl (Apresoline) 10 mg Q6H PRN IV ELEVATED SYSTOLIC BP; Start 12/02 at 23:30 Pantoprazole (Protonix Tab) 40 mg DAILY@06 PO Last administered on 12/11/16 06 :39; Admin Dose 40 MG; Start 12/03/16 at 06:00 Zolpidem Tartrate (Ambien) 5 mg HS PRN PO INSOMNIA; Start 12/02/16 at 23:30 Benazepril HCl (Lotensin) 10 mg DAILY PO Last administered on 12/07/16 08:26; Admin Dose 10 MG; Start 12/04/16 at 09:00; Status Future Hold Insulin Glargine 25 unit 25 unit DAILY SC Last administered on 12/09/16 08:24 ; Admin Dose 25 UNIT; Start 12/06/16 at 09:00 Sodium Chloride (1/2 NS) 1,000 ml @ 70 mls/hr [id number] IV Last administered on 12/10/16 21:26; Admin Dose 70 MLS/HR; Start 12/07/16 at 12:30 Collagenase (Santyl) 1 applic DAILY TOP Last administered on 12/10/16 08:17; Admin Dose 1 APPLIC; Start 12/07/16 at 16:00 Lorazepam (Ativan) 2 mg Q2 PRN IV AGITATION/ANXIETY; Start 12/09/16 at 09:30 Morphine Sulfate (morphine) 2 mg Q2H PRN IV PAIN; Start 12/09/16 at 09:30 Acetaminophen 650 mg 650 mg Q6H PRN [place] ELEVATED TEMPERATURE Last administered on 12/09/16 17:53; Admin Dose 650 MG; Start 12/09/16 at 17:00 Piperacillin Sod/ Tazobactam Sod (Zosyn 2.25gm/ 50ml (Pmx)) 50 ml @ 100 mls/hr Q12 IVPB Last administered on 12/10/16 21:12; Admin Dose 100 MLS/HR; Start at 21:00 Metoprolol Tartrate 5 mg 5 mg Q4H PRN IV HR>100 Last administered on 12/10/16 22:23; Admin Dose 5 MG; Start 12/09/16 at 17:48 Phenylephrine HCl/ Dextrose (Fernandez-Syneph/D5W) 500 ml @ 75 mls/hr TITRATE IV Last administered on 12/10/16 06:02; Admin Dose 10 MLS/HR; Start 12/09/16 at 22 :00 Amiodarone HCl (Cordarone) 200 mg BID PO Last administered on 12/10/16 21:12; Admin Dose 200 MG; Start 12/10/16 at 13:00 ELTON MARMOLEJO Dec 11, 2016 10:17
[2016-12-11] MEDS: ASPIRIN (EC) 81 MG TAB PO SCH (10:18)
[2016-12-11] MEDS: AMIODARONE 200 MG TAB PO SCH ×2 (10:19→21:00)
[2016-12-11] MEDS: PIPER-TAZO 2.25 GM (PMX) 50 ML IVPB SCH ×2 (10:19→20:53)
--- NOTE | 2016-12-11 10:20 | CONS ---
Date/Time of Note Date/Time of Note DATE: 12/11/16 TIME: 10:17 Assessment/Plan Assessment/Plan Additional Assessment/Plan 1. Oliguric to Anuric Acute kidney injury 2/2 ATN- started on HD on 12/09/16 for acute fluid overload and Pulmonary edema 2. acute resp failure intubated on ventilator -now extubated on 12/10/2016 2. Left foot diabetic ulcer/cellulitis currently on IV antibiotics, Zosyn and vancomycin. 3. History of diabetes mellitus, insulin-dependent with lower extremity neuropathy. 4. History of hypertension. 5. History of aortic stenosis with diastolic dysfunction with ejection fraction 60% on echocardiogram. 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 HD IV hydralazine prn will continue to follow up on patient Consultation Date/Type/Reason Admit Date/Time Dec 02, 2016 at 21:01 Initial Consult Date 12/07/16 Type of Consultation: NEPHROLOGY Reason for Consultation acute kidney injury, severe metabolic acidosis, fluid overload, hyperkalemia Referring Provider: VIET PARKER MD 24 HR Interval Summary Free Text/Dictation S/p HD x 3 days in a row, Extubated now, still on levophed and Heparin gtt Exam/Review of Systems Vital Signs Vitals Vital Signs Date Time Temp Pulse Resp B/P Pulse Ox O2 Delivery O2 Flow Rate FiO2 12/11/16 09:30 84 12/11/16 07:00 18 127/110 98 Nasal Cannula 2.0 12/11/16 04:00 99.0 12/10/16 13:40 40 Intake and Output 12/10/16 12/10/16 12/11/16 15:00 23:00 07:00 Intake Total 975.0 ml 578.5 ml 778.5 ml Output Total 2510 ml 0 ml 35 ml Balance -1535.0 ml 578.5 ml 743.5 ml Exam GENERAL: intubated on ventilator HEENT: Normal. Oropharynx clear. NECK: + JVD LUNGS: bilateral basilar crackles HEART: S1, S2, with regular rhythm, no murmur. ABDOMEN: Soft, nontender, nondistended. Bowel sounds are present. EXTREMITIES: left foot dressing in place, + Molina catheter in place NEUROLOGICAL: not able to assess Results Result Diagram: 12/11/16 0330 12/11/16 0330 Results 24 hrs Laboratory Tests Test 12/10/16 11:12 12/10/16 13:06 12/10/16 15:35 12/10/16 16:53 Bedside Glucose 99 93 Prothrombin Time 15.0 H Prothrombin Time Ratio 1.2 INR International Normalized Ratio 1.17 Activated Partial Thromboplast Time 37.4 H Creatine Kinase 52 Creatine Kinase Index 2.9 Creatinine Kinase MB (Mass) 1.53 Troponin I 2.550 *H White Blood Count 12.9 #H Red Blood Count 3.31 L Hemoglobin 10.5 L Hematocrit 31.6 L Mean Corpuscular Volume 95.5 Mean Corpuscular Hemoglobin 31.7 Mean Corpuscular Hemoglobin Concent 33.2 Red Cell Distribution Width 12.6 Platelet Count 163 Mean Platelet Volume 10.7 H Neutrophils % 84.6 H Lymphocytes % 5.1 L Monocytes % 9.3 Eosinophils % 0.2 Basophils % 0.3 Nucleated Red Blood Cells % 0.0 Neutrophils # 10.9 H Lymphocytes # 0.7 L Monocytes # 1.2 H Eosinophils # 0.0 Basophils # 0.0 Nucleated Red Blood Cells # 0.0 Test 12/10/16 20:45 12/10/16 21:11 12/11/16 03:30 12/11/16 08:44 Activated Partial Thromboplast Time 54.7 H 53.0 H Bedside Glucose 125 164 White Blood Count 12.2 H Red Blood Count 2.89 L Hemoglobin 9.2 L Hematocrit 27.8 L Mean Corpuscular Volume 96.2 Mean Corpuscular Hemoglobin 31.8 Mean Corpuscular Hemoglobin Concent 33.1 Red Cell Distribution Width 12.6 Platelet Count 148 Mean Platelet Volume 10.6 H Neutrophils % 83.0 H Lymphocytes % 6.7 L Monocytes % 9.2 Eosinophils % 0.2 Basophils % 0.4 Nucleated Red Blood Cells % 0.0 Neutrophils # 10.1 H Lymphocytes # 0.8 Monocytes # 1.1 H Eosinophils # 0.0 Basophils # 0.1 Nucleated Red Blood Cells # 0.0 Sodium Level 136 Potassium Level 4.2 Chloride Level 98 Carbon Dioxide Level 26 Anion Gap 16 Blood Urea Nitrogen 29 H Creatinine 6.99 H Glucose Level 195 # Calcium Level 7.3 L Phosphorus Level 7.3 H Magnesium Level 2.0 Test 12/11/16 09:15 12/11/16 10:04 Activated Partial Thromboplast Time 47.0 H Bedside Glucose 156 Medications Medications Current Medications Diagnostic Test (Pha) (Accu-Chek) 1 ea 02 XX Last administered on 12/10/16 02: 00; Admin Dose 1 EA; Start 12/03/16 at 02:00 Ondansetron HCl (Zofran Inj) 4 mg Q6H PRN IV NAUSEA AND/OR VOMITING; Start at 22:30 Miscellaneous Information 1 ea NOTE XX ; Start 12/02/16 at 23:00 Glucose (Glutose) 15 gm Q15M PRN PO DECREASED GLUCOSE; Start 12/02/16 at 23:00 Glucose (Glutose) 22.5 gm Q15M PRN PO DECREASED GLUCOSE; Start 12/02/16 at 23: 00 Dextrose (D50w Syringe) 25 ml Q15M PRN IV DECREASED GLUCOSE Last administered on 12/10/16 05:52; Admin Dose 25 ML; Start 12/02/16 at 23:00 Dextrose (D50w Syringe) 50 ml Q15M PRN IV DECREASED GLUCOSE; Start 12/02/16 at 23:00 Glucagon (Glucagen) 1 mg Q15M PRN IM DECREASED GLUCOSE; Start 12/02/16 at 23:00 Glucose (Glutose) 15 gm Q15M PRN BUCCAL DECREASED GLUCOSE; Start 12/02/16 at 23 :00 Aspirin (Halfprin) 81 mg DAILY PO Last administered on 12/08/16 08:38; Admin Dose 81 MG; Start 12/03/16 at 09:00 Gabapentin (Neurontin) 800 mg TID PO Last administered on 12/08/16 20:33; Admin Dose 800 MG; Start 12/03/16 at 09:00; Status Future Hold Meclizine HCl (Antivert) 25 mg TID PRN PO dizziness Last administered on 10:04; Admin Dose 25 MG; Start 12/02/16 at 23:00 Terazosin HCl (Hytrin) 5 mg HS PO Last administered on 12/07/16 20:28; Admin Dose 5 MG; Start 12/03/16 at 21:00; Status Future Hold Acetaminophen/ Hydrocodone Bitart ([place] (5/325)) 1 tab Q6H PRN PO PAIN LEVEL 4 -7 Last administered on 12/10/16 21:31; Admin Dose 1 TAB; Start 12/02/16 at 23: 30 Acetaminophen (Tylenol Tab) 650 mg Q6H PRN PO PAIN AND OR ELEVATED TEMP; Start 12/02/16 at 23:30 Docusate Sodium (Colace) 100 mg BID PO Last administered on 12/08/16 20:32; Admin Dose 100 MG; Start 12/03/16 at 09:00; Status Future Hold Hydralazine HCl (Apresoline) 10 mg Q6H PRN IV ELEVATED SYSTOLIC BP; Start 12/02 at 23:30 Pantoprazole (Protonix Tab) 40 mg DAILY@06 PO Last administered on 12/11/16 06 :39; Admin Dose 40 MG; Start 12/03/16 at 06:00 Zolpidem Tartrate (Ambien) 5 mg HS PRN PO INSOMNIA; Start 12/02/16 at 23:30 Benazepril HCl (Lotensin) 10 mg DAILY PO Last administered on 12/07/16 08:26; Admin Dose 10 MG; Start 12/04/16 at 09:00; Status Future Hold Insulin Glargine 25 unit 25 unit DAILY SC Last administered on 12/09/16 08:24 ; Admin Dose 25 UNIT; Start 12/06/16 at 09:00 Sodium Chloride (1/2 NS) 1,000 ml @ 70 mls/hr [id number] IV Last administered on 12/10/16 21:26; Admin Dose 70 MLS/HR; Start 12/07/16 at 12:30 Collagenase (Santyl) 1 applic DAILY TOP Last administered on 12/10/16 08:17; Admin Dose 1 APPLIC; Start 12/07/16 at 16:00 Lorazepam (Ativan) 2 mg Q2 PRN IV AGITATION/ANXIETY; Start 12/09/16 at 09:30 Morphine Sulfate (morphine) 2 mg Q2H PRN IV PAIN; Start 12/09/16 at 09:30 Acetaminophen 650 mg 650 mg Q6H PRN [place] ELEVATED TEMPERATURE Last administered on 12/09/16 17:53; Admin Dose 650 MG; Start 12/09/16 at 17:00 Piperacillin Sod/ Tazobactam Sod (Zosyn 2.25gm/ 50ml (Pmx)) 50 ml @ 100 mls/hr Q12 IVPB Last administered on 12/10/16 21:12; Admin Dose 100 MLS/HR; Start at 21:00 Metoprolol Tartrate 5 mg 5 mg Q4H PRN IV HR>100 Last administered on 12/10/16 22:23; Admin Dose 5 MG; Start 12/09/16 at 17:48 Phenylephrine HCl/ Dextrose (Fernandez-Syneph/D5W) 500 ml @ 75 mls/hr TITRATE IV Last administered on 12/10/16 06:02; Admin Dose 10 MLS/HR; Start 12/09/16 at 22 :00 Amiodarone HCl (Cordarone) 200 mg BID PO Last administered on 12/10/16 21:12; Admin Dose 200 MG; Start 12/10/16 at 13:00 TASHIA MCGARRY MD Dec 11, 2016 10:20
[2016-12-11] MEDS: INSULIN GLARGINE [LANtus] 3 ML PEN SC SCH (10:25)
--- NOTE | 2016-12-11 10:58 | CONS ---
Date/Time of Note Date/Time of Note DATE: 12/11/16 TIME: 10:53 Assessment/Plan Assessment/Plan Chief Complaint/Hosp Course IMPRESSION: 1. Atrial fibrillation-having some PAF this am with mild RVR 2. Hypotension-now improved off pressors with mild HTN 3. Abnormal electrocardiogram with inferolateral T-wave inversions. 4. Respiratory failure, status post intubation. 5. Nonhealing toe ulceration. 6. Peripheral arterial disease by arterial ultrasound of the lower extremities this admission. 7. Diabetes mellitus. 8. Fevers. 9. 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: -Tele -serial ecg -wean pat and follow BP closely -HD for volume removal -Trend cardiac enzymes -Continue asa as able -Continue heparin given now PAF/positive troponin -Continue PO amio in attempt to maintain SR -Start low dose BB Problems: Consultation Date/Type/Reason Admit Date/Time Dec 02, 2016 at 21:01 Initial Consult Date 12/03/16 Type of Consultation: Cardiology Reason for Consultation AF Referring Provider: VIET PARKER MD Exam/Review of Systems Vital Signs Vitals Vital Signs Date Time Temp Pulse Resp B/P Pulse Ox O2 Delivery O2 Flow Rate FiO2 12/11/16 09:30 84 18 12/11/16 07:00 127/110 98 Nasal Cannula 2.0 12/11/16 04:00 99.0 12/10/16 13:40 40 Intake and Output 12/10/16 12/10/16 12/11/16 15:00 23:00 07:00 Intake Total 975.0 ml 578.5 ml 778.5 ml Output Total 2510 ml 0 ml 35 ml Balance -1535.0 ml 578.5 ml 743.5 ml Exam Review of Systems: CONSTITUTIONAL: No fevers, chills. PULMONARY: s/p extubation CARDIOVASCULAR: No chest pain/palpitations GASTROINTESTINAL: No nausea/vomiting. GENITOURINARY: No hematuria/dysuria. MUSCULOSKELETAL: No myagias/arthalgias. PSYCHIATRIC: The patient denies depression. NEUROLOGIC: No weakness Constitutional: alert, oriented Psych: no complaints Head: normocephalic ENMT: mucosa pink and moist Neck: jvd (9 cm water), supple Respiratory: diminished breath sounds (at bases/B) Cardiovascular: regular rate and rhythm Gastrointestinal: non-tender, soft Musculoskeletal: muscle tone (normal) Extremities: edema (none) Neurological: other (No focal deficits) Results Result Diagram: 12/11/16 0330 12/11/16 0330 Results 24 hrs Laboratory Tests Test 12/10/16 11:12 12/10/16 13:06 12/10/16 15:35 12/10/16 16:53 Bedside Glucose 99 93 Prothrombin Time 15.0 H Prothrombin Time Ratio 1.2 INR International Normalized Ratio 1.17 Activated Partial Thromboplast Time 37.4 H Creatine Kinase 52 Creatine Kinase Index 2.9 Creatinine Kinase MB (Mass) 1.53 Troponin I 2.550 *H White Blood Count 12.9 #H Red Blood Count 3.31 L Hemoglobin 10.5 L Hematocrit 31.6 L Mean Corpuscular Volume 95.5 Mean Corpuscular Hemoglobin 31.7 Mean Corpuscular Hemoglobin Concent 33.2 Red Cell Distribution Width 12.6 Platelet Count 163 Mean Platelet Volume 10.7 H Neutrophils % 84.6 H Lymphocytes % 5.1 L Monocytes % 9.3 Eosinophils % 0.2 Basophils % 0.3 Nucleated Red Blood Cells % 0.0 Neutrophils # 10.9 H Lymphocytes # 0.7 L Monocytes # 1.2 H Eosinophils # 0.0 Basophils # 0.0 Nucleated Red Blood Cells # 0.0 Test 12/10/16 20:45 12/10/16 21:11 12/11/16 03:30 12/11/16 08:44 Activated Partial Thromboplast Time 54.7 H 53.0 H Bedside Glucose 125 164 White Blood Count 12.2 H Red Blood Count 2.89 L Hemoglobin 9.2 L Hematocrit 27.8 L Mean Corpuscular Volume 96.2 Mean Corpuscular Hemoglobin 31.8 Mean Corpuscular Hemoglobin Concent 33.1 Red Cell Distribution Width 12.6 Platelet Count 148 Mean Platelet Volume 10.6 H Neutrophils % 83.0 H Lymphocytes % 6.7 L Monocytes % 9.2 Eosinophils % 0.2 Basophils % 0.4 Nucleated Red Blood Cells % 0.0 Neutrophils # 10.1 H Lymphocytes # 0.8 Monocytes # 1.1 H Eosinophils # 0.0 Basophils # 0.1 Nucleated Red Blood Cells # 0.0 Sodium Level 136 Potassium Level 4.2 Chloride Level 98 Carbon Dioxide Level 26 Anion Gap 16 Blood Urea Nitrogen 29 H Creatinine 6.99 H Glucose Level 195 # Calcium Level 7.3 L Phosphorus Level 7.3 H Magnesium Level 2.0 Test 12/11/16 09:15 12/11/16 10:04 Activated Partial Thromboplast Time 47.0 H Bedside Glucose 156 Medications Medications Current Medications Diagnostic Test (Pha) (Accu-Chek) 1 ea 02 XX Last administered on 12/10/16 02: 00; Admin Dose 1 EA; Start 12/03/16 at 02:00 Ondansetron HCl (Zofran Inj) 4 mg Q6H PRN IV NAUSEA AND/OR VOMITING; Start at 22:30 Miscellaneous Information 1 ea NOTE XX ; Start 12/02/16 at 23:00 Glucose (Glutose) 15 gm Q15M PRN PO DECREASED GLUCOSE; Start 12/02/16 at 23:00 Glucose (Glutose) 22.5 gm Q15M PRN PO DECREASED GLUCOSE; Start 12/02/16 at 23: 00 Dextrose (D50w Syringe) 25 ml Q15M PRN IV DECREASED GLUCOSE Last administered on 12/10/16 05:52; Admin Dose 25 ML; Start 12/02/16 at 23:00 Dextrose (D50w Syringe) 50 ml Q15M PRN IV DECREASED GLUCOSE; Start 12/02/16 at 23:00 Glucagon (Glucagen) 1 mg Q15M PRN IM DECREASED GLUCOSE; Start 12/02/16 at 23:00 Glucose (Glutose) 15 gm Q15M PRN BUCCAL DECREASED GLUCOSE; Start 12/02/16 at 23 :00 Aspirin (Halfprin) 81 mg DAILY PO Last administered on 12/11/16 10:18; Admin Dose 81 MG; Start 12/03/16 at 09:00 Gabapentin (Neurontin) 800 mg TID PO Last administered on 12/08/16 20:33; Admin Dose 800 MG; Start 12/03/16 at 09:00; Status Future Hold Meclizine HCl (Antivert) 25 mg TID PRN PO dizziness Last administered on 10:04; Admin Dose 25 MG; Start 12/02/16 at 23:00 Terazosin HCl (Hytrin) 5 mg HS PO Last administered on 12/07/16 20:28; Admin Dose 5 MG; Start 12/03/16 at 21:00; Status Future Hold Acetaminophen/ Hydrocodone Bitart ([place] (5/325)) 1 tab Q6H PRN PO PAIN LEVEL 4 -7 Last administered on 12/10/16 21:31; Admin Dose 1 TAB; Start 12/02/16 at 23: 30 Acetaminophen (Tylenol Tab) 650 mg Q6H PRN PO PAIN AND OR ELEVATED TEMP; Start 12/02/16 at 23:30 Docusate Sodium (Colace) 100 mg BID PO Last administered on 12/08/16 20:32; Admin Dose 100 MG; Start 12/03/16 at 09:00; Status Future Hold Pantoprazole (Protonix Tab) 40 mg DAILY@06 PO Last administered on 12/11/16 06 :39; Admin Dose 40 MG; Start 12/03/16 at 06:00 Zolpidem Tartrate (Ambien) 5 mg HS PRN PO INSOMNIA; Start 12/02/16 at 23:30 Benazepril HCl (Lotensin) 10 mg DAILY PO Last administered on 12/07/16 08:26; Admin Dose 10 MG; Start 12/04/16 at 09:00; Status Future Hold Insulin Glargine 25 unit 25 unit DAILY SC Last administered on 12/11/16 10:25 ; Admin Dose 25 UNIT; Start 12/06/16 at 09:00 Sodium Chloride (1/2 NS) 1,000 ml @ 70 mls/hr [id number] IV Last administered on 12/10/16 21:26; Admin Dose 70 MLS/HR; Start 12/07/16 at 12:30 Collagenase (Santyl) 1 applic DAILY TOP Last administered on 12/11/16 09:00; Admin Dose 1 APPLIC; Start 12/07/16 at 16:00 Lorazepam (Ativan) 2 mg Q2 PRN IV AGITATION/ANXIETY; Start 12/09/16 at 09:30 Morphine Sulfate (morphine) 2 mg Q2H PRN IV PAIN; Start 12/09/16 at 09:30 Acetaminophen 650 mg 650 mg Q6H PRN [place] ELEVATED TEMPERATURE Last administered on 12/09/16 17:53; Admin Dose 650 MG; Start 12/09/16 at 17:00 Piperacillin Sod/ Tazobactam Sod (Zosyn 2.25gm/ 50ml (Pmx)) 50 ml @ 100 mls/hr Q12 IVPB Last administered on 12/11/16 10:19; Admin Dose 100 MLS/HR; Start at 21:00 Metoprolol Tartrate 5 mg 5 mg Q4H PRN IV HR>100 Last administered on 12/10/16 22:23; Admin Dose 5 MG; Start 12/09/16 at 17:48 Phenylephrine HCl/ Dextrose (Pat-Syneph/D5W) 500 ml @ 75 mls/hr TITRATE IV Last administered on 12/10/16 06:02; Admin Dose 10 MLS/HR; Start 12/09/16 at 22 :00 Amiodarone HCl (Cordarone) 200 mg BID PO Last administered on 12/11/16 10:19; Admin Dose 200 MG; Start 12/10/16 at 13:00 Hydralazine HCl (Apresoline) 10 mg Q6H PRN IV SBP>150mm hg ; Start 12/11/16 at 10:30 VICENTE LESLIE Dec 11, 2016 10:58
[2016-12-11] MEDS: SOD CHLORIDE 0.45% 1,000 ML IV SCH (17:50)
[2016-12-11] MEDS: LORAZEPAM 2 MG INJ IV PRN (18:52)
--- NOTE | 2016-12-11 18:59 | RADRPT ---
PROCEDURE: XR Chest. CLINICAL INDICATION: Shortness of breath. TECHNIQUE: Single frontal view. COMPARISON: 12/10/2016. FINDINGS: The endotracheal tube has been removed. There is bilateral air space and interstitial disease consi stent with pulmonary edema, slightly worse than seen previously. The lungs are otherwise clear. The heart size is normal. There is no pleural effusion or pneumothorax. There is an old healed fracture of the mid right clavicle. IMPRESSION: 1. Endotracheal tube removed. 2. Slightly worse pulmonary edema. 3. Old healed fracture of the mid right clavicle. RPTAT: QQ .Bruce Zurita MD, MD Date Time Electronically viewed and signed by .Bruce Zurita MD, on 12/11/2016 18:59 .R/
[2016-12-11] MEDS: METOPROLOL 25 MG TAB PO SCH (21:00)
--- NOTE | 2016-12-11 21:13 | PN ---
Date/Time of Note Date/Time of Note DATE: 12/11/16 TIME: 21:13 Assessment/Plan Lines/Catheters IV Catheter Type (from Nrs): QC WITH PIG TAIL Molina in Place (from Nrs): Yes Assessment/Plan Problems: (1) Hyperglycemia Status: Acute (2) Cellulitis of left foot Status: Acute (3) Failure of outpatient treatment Status: Acute (4) Diabetes, polyneuropathy (5) Peripheral vascular disease (6) Non-pressure chronic ulcer of other part of left foot with fat layer exposed Assessment/Plan No surgery recommended at this time. Patient will be followed in-house. Subjective 24 Hr Interval Summary Patient was seen and examined at bedside. Patient denies any pain today. Reports no chest pain or shortness of breath. Denies fever chills nausea or vomiting. Constitutional: no complaints Pain Control: well controlled Exam/Review of Systems Vital Signs Vitals Vital Signs Date Time Temp Pulse Resp B/P Pulse Ox O2 Delivery O2 Flow Rate FiO2 01/07/17 22:01 80 99 30 01/07/17 20:18 97.4 18 108/55 01/07/17 14:56 2.0 01/07/17 14:50 Nasal Cannula Intake and Output 01/06/17 01/06/17 01/07/17 15:00 23:00 07:00 Intake Total 850 ml 950 ml 400 ml Output Total 2700 ml 400 ml Balance -1850 ml 550 ml 400 ml Exam Free Text/Dictation Patient is laying supine in bed in no acute distress. Left hallux wound is improved. It is dry with no drainage. The hallux swelling has decreased significantly. There is no erythema noted and the area is nontender to palpation. Palpable pulses but weak bilaterally. Decreased sensation noted to sharp dull vibratory and temperature stimuli. No other changes noted on examination today. Constitutional: No alert, No distress, No frail, No non-verbal, No obese, No oriented, No other, No well developed Head: No atraumatic, No hematomas, No lacerations, No normocephalic, No other Eyes: No EOMI, No PERRL, No fundi, disc, No icteric, No nl conjunctiva, No nl lids, No nl sclera, No other Results Result Diagram: 01/07/1751901/07/17519 YEIMI LIZARRAGA DPM Dec 11, 2016 21:13
[2016-12-12] VITALS (11 sets, daily range): BP systolic 108–162; BP diastolic 42–76; PULSE 76–99; RESP 16–20
[2016-12-12] MEDS: ACCU-CHEK XX SCH (01:17)
[2016-12-12] MEDS: HEPARIN 25000 UNITS/250 ML 250 ML IV SCH ×4 (02:02→19:31)
[2016-12-12] MEDS: PANTOPRAZOLE (EC) 40 MG TAB PO SCH (05:47)
[2016-12-12] MEDS: SOD CHLORIDE 0.45% 1,000 ML IV SCH ×2 (07:56→20:51)
[2016-12-12] MEDS: INSULIN ASPART [NOVOLOG] 3 ML PEN SC SCH ×7 (07:59→20:49)
[2016-12-12] MEDS: AMIODARONE 200 MG TAB PO SCH ×2 (08:52→20:51)
[2016-12-12] MEDS: ASPIRIN (EC) 81 MG TAB PO SCH (08:52)
[2016-12-12] MEDS: PIPER-TAZO 2.25 GM (PMX) 50 ML IVPB SCH ×2 (08:52→20:50)
[2016-12-12] MEDS: COLLAGENASE 30 GM TUBE TOP SCH (08:53)
[2016-12-12] MEDS: METOPROLOL 25 MG TAB PO SCH ×2 (08:53→20:51)
[2016-12-12] MEDS: INSULIN GLARGINE [LANtus] 3 ML PEN SC SCH (08:56)
--- NOTE | 2016-12-12 11:24 | PN ---
Date/Time of Note Date/Time of Note DATE: 12/12/16 TIME: 11:24 Assessment/Plan VTE Prophylaxis VTE Prophylaxis Intervention: other Lines/Catheters IV [facility] Type [facility]from [facility] CATH WITH PIGTAIL Urinary Cath still in place: Yes Reason Cath still needed: skin wounds contaminated by urine Assessment/Plan Chief Complaint/Hosp Course - Acute respiratory failure secondary to pulmonary edema, has resolved - Acute renal failure, most likely Vanco induced, Dr. Remy, nephrology consultation is appreciated. On hemodialysis. - Atrial fibrillation with rapid ventricular response, Dr. Cobian is following and cardiology consultation. - Hypertension, continued on pressors for hemodynamic support. - Diabetic foot ulcer of the left foot, Dr Lin is following in podiatry consultation. - Cellulitis of left foot, 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 and left fourth proximal phalanx per bone scan, continue antibiotics, Dr. Pascual is following in infection disease consultation. Continue antibiotics per ID. - IDDM, continue metformin and Lantus and pre-meal NovoLog. - Aortic stenosis - Diastolic dysfunction congestive heart failure with preserved ejection fraction of 60%. - Hypertension, continue benazepril. Problems: Subjective 24 Hr Interval Summary Free Text/Dictation Patient complain of pain in feet Exam/Review of Systems Vital Signs Vitals Vital Signs Date Time Temp Pulse Resp B/P Pulse Ox O2 Delivery O2 Flow Rate FiO2 12/12/16 08:30 95 12/12/16 07:46 98.1 18 145/76 94 12/11/16 20:00 Nasal Cannula 2.0 12/10/16 13:40 40 Intake and Output 12/11/16 12/11/16 12/12/16 15:00 23:00 07:00 Intake Total 350 ml 390 ml 1122 ml Output Total 2000 ml 25 ml 10 ml Balance -1650 ml 365 ml 1112 ml Exam Constitutional: well developed Head: atraumatic, normocephalic Neck: supple Respiratory: clear to auscultation Cardiovascular: regular rate and rhythm Gastrointestinal: non-tender, soft Extremities: normal pulses Results Result Diagram: 12/11/16 0330 12/11/16 0330 Results 24 hrs Laboratory Tests Test 12/11/16 11:37 12/11/16 15:10 12/11/16 17:26 12/11/16 19:20 Bedside Glucose 142 231 H 199 Activated Partial Thromboplast Time 53.1 H Test 12/11/16 20:31 12/12/16 00:52 12/12/16 01:15 12/12/16 07:44 Bedside Glucose 190 164 Activated Partial Thromboplast Time 78.0 *H 61.8 H Test 12/12/16 07:53 Bedside Glucose 166 Medications Medications Current Medications Diagnostic Test (Pha) (Accu-Chek) 1 ea 02 XX Last administered on 12/12/16 01: 17; Admin Dose 1 EA; Start 12/03/16 at 02:00 Ondansetron HCl (Zofran Inj) 4 mg Q6H PRN IV NAUSEA AND/OR VOMITING; Start at 22:30 Miscellaneous Information 1 ea NOTE XX ; Start 12/02/16 at 23:00 Glucose (Glutose) 15 gm Q15M PRN PO DECREASED GLUCOSE; Start 12/02/16 at 23:00 Glucose (Glutose) 22.5 gm Q15M PRN PO DECREASED GLUCOSE; Start 12/02/16 at 23: 00 Dextrose (D50w Syringe) 25 ml Q15M PRN IV DECREASED GLUCOSE Last administered on 12/10/16 05:52; Admin Dose 25 ML; Start 12/02/16 at 23:00 Dextrose (D50w Syringe) 50 ml Q15M PRN IV DECREASED GLUCOSE; Start 12/02/16 at 23:00 Glucagon (Glucagen) 1 mg Q15M PRN IM DECREASED GLUCOSE; Start 12/02/16 at 23:00 Glucose (Glutose) 15 gm Q15M PRN BUCCAL DECREASED GLUCOSE; Start 12/02/16 at 23 :00 Aspirin (Halfprin) 81 mg DAILY PO Last administered on 12/12/16 08:52; Admin Dose 81 MG; Start 12/03/16 at 09:00 Gabapentin (Neurontin) 800 mg TID PO Last administered on 12/08/16 20:33; Admin Dose 800 MG; Start 12/03/16 at 09:00; Status Future Hold Meclizine HCl (Antivert) 25 mg TID PRN PO dizziness Last administered on 10:04; Admin Dose 25 MG; Start 12/02/16 at 23:00 Terazosin HCl (Hytrin) 5 mg HS PO Last administered on 12/07/16 20:28; Admin Dose 5 MG; Start 12/03/16 at 21:00; Status Future Hold Acetaminophen/ Hydrocodone Bitart ([place] (5/325)) 1 tab Q6H PRN PO PAIN LEVEL 4 -7 Last administered on 12/10/16 21:31; Admin Dose 1 TAB; Start 12/02/16 at 23: 30 Acetaminophen (Tylenol Tab) 650 mg Q6H PRN PO PAIN AND OR ELEVATED TEMP; Start 12/02/16 at 23:30 Docusate Sodium (Colace) 100 mg BID PO Last administered on 12/08/16 20:32; Admin Dose 100 MG; Start 12/03/16 at 09:00; Status Future Hold Pantoprazole (Protonix Tab) 40 mg DAILY@06 PO Last administered on 12/12/16 05 :47; Admin Dose 40 MG; Start 12/03/16 at 06:00 Zolpidem Tartrate (Ambien) 5 mg HS PRN PO INSOMNIA; Start 12/02/16 at 23:30 Benazepril HCl (Lotensin) 10 mg DAILY PO Last administered on 12/07/16 08:26; Admin Dose 10 MG; Start 12/04/16 at 09:00; Status Future Hold Insulin Glargine 25 unit 25 unit DAILY SC Last administered on 12/12/16 08:56 ; Admin Dose 25 UNIT; Start 12/06/16 at 09:00 Sodium Chloride (1/2 NS) 1,000 ml @ 70 mls/hr [id number] IV Last administered on 12/12/16 07:56; Admin Dose 70 MLS/HR; Start 12/07/16 at 12:30 Collagenase (Santyl) 1 applic DAILY TOP Last administered on 12/12/16 08:53; Admin Dose 1 APPLIC; Start 12/07/16 at 16:00 Lorazepam (Ativan) 2 mg Q2 PRN IV AGITATION/ANXIETY Last administered on 18:52; Admin Dose 2 MG; Start 12/09/16 at 09:30 Morphine Sulfate (morphine) 2 mg Q2H PRN IV PAIN; Start 12/09/16 at 09:30 Acetaminophen 650 mg 650 mg Q6H PRN [place] ELEVATED TEMPERATURE Last administered on 12/09/16 17:53; Admin Dose 650 MG; Start 12/09/16 at 17:00 Piperacillin Sod/ Tazobactam Sod (Zosyn 2.25gm/ 50ml (Pmx)) 50 ml @ 100 mls/hr Q12 IVPB Last administered on 12/12/16 08:52; Admin Dose 100 MLS/HR; Start at 21:00 Metoprolol Tartrate 5 mg 5 mg Q4H PRN IV HR>100 Last administered on 12/10/16 22:23; Admin Dose 5 MG; Start 12/09/16 at 17:48 Phenylephrine HCl/ Dextrose (Fernandez-Syneph/D5W) 500 ml @ 75 mls/hr TITRATE IV Last administered on 12/10/16 06:02; Admin Dose 10 MLS/HR; Start 12/09/16 at 22 :00 Amiodarone HCl (Cordarone) 200 mg BID PO Last administered on 12/12/16 08:52; Admin Dose 200 MG; Start 12/10/16 at 13:00 Hydralazine HCl (Apresoline) 10 mg Q6H PRN IV SBP>150mm hg ; Start 12/11/16 at 10:30 Metoprolol Tartrate (Lopressor) 25 mg BID PO Last administered on 12/12/16 08: 53; Admin Dose 25 MG; Start 12/11/16 at 21:00 ELTON MARMOLEJO Dec 12, 2016 11:24
--- NOTE | 2016-12-12 12:42 | CONS ---
Date/Time of Note Date/Time of Note DATE: 12/12/16 TIME: 12:40 Assessment/Plan Assessment/Plan Additional Assessment/Plan Assessment recommendations; 1. Patient admitted with respiratory failure due to acute renal failure, extubated 48 hours ago with excellent overall clinical status. 2. On hemodialysis. 3. Gangrene involving left toe. Currently getting local wound dressing. 4. History of cardiac arrhythmia, hypertension, neuropathy, BPH, diabetes. Continue current treatment. We will sign off. Thanks for the referral. Consultation Date/Type/Reason Admit Date/Time Dec 02, 2016 at 21:01 Initial Consult Date 12/03/16 Type of Consultation: Pulmonary/critical care Referring Provider: VIET PARKER MD 24 HR Interval Summary Free Text/Dictation Patient condition is stable. Has been transferred out of ICU to telemetry unit. Denies any chest pain, shortness of breath. General exam; elderly male, awake alert currently in no distress. Exam/Review of Systems Vital Signs Vitals Vital Signs Date Time Temp Pulse Resp B/P Pulse Ox O2 Delivery O2 Flow Rate FiO2 12/12/16 12:23 88 12/12/16 11:41 98.3 18 113/42 95 12/12/16 08:00 Nasal Cannula 2.0 12/10/16 13:40 40 Intake and Output 12/11/16 12/11/16 12/12/16 15:00 23:00 07:00 Intake Total 350 ml 390 ml 1122 ml Output Total 2000 ml 25 ml 10 ml Balance -1650 ml 365 ml 1112 ml Exam HEENT exam is; supple neck, no JVD. No lymphadenopathy. Midline trachea. No thyromegaly. Pupils are midsize and reactive to light. Patient has a multiple missing teeth. Chest examination; clear to auscultation. S1-S2 audible, no murmurs. Regular rhythm. Abdomen examination; soft, nondistended, nontender. No organomegaly. Bowel sounds audible. Extremity exam is; no peripheral edema. There is early gangrene involving left toe. CAREERS ADVISER examination; no focal deficit. Results Result Diagram: 12/11/16 0330 12/11/16 033 Results 24 hrs Laboratory Tests Test 12/11/16 15:10 12/11/16 17:26 12/11/16 19:20 12/11/16 20:31 Activated Partial Thromboplast Time 53.1 H Bedside Glucose 231 H 199 190 Test 12/12/16 00:52 12/12/16 01:15 12/12/16 07:44 12/12/16 07:53 Activated Partial Thromboplast Time 78.0 *H 61.8 H Bedside Glucose 164 166 Test 12/12/16 12:05 Bedside Glucose 181 Medications Medications Current Medications Diagnostic Test (Pha) (Accu-Chek) 1 ea 02 XX Last administered on 12/12/16 01: 17; Admin Dose 1 EA; Start 12/03/16 at 02:00 Ondansetron HCl (Zofran Inj) 4 mg Q6H PRN IV NAUSEA AND/OR VOMITING; Start at 22:30 Miscellaneous Information 1 ea NOTE XX ; Start 12/02/16 at 23:00 Glucose (Glutose) 15 gm Q15M PRN PO DECREASED GLUCOSE; Start 12/02/16 at 23:00 Glucose (Glutose) 22.5 gm Q15M PRN PO DECREASED GLUCOSE; Start 12/02/16 at 23: 00 Dextrose (D50w Syringe) 25 ml Q15M PRN IV DECREASED GLUCOSE Last administered on 12/10/16 05:52; Admin Dose 25 ML; Start 12/02/16 at 23:00 Dextrose (D50w Syringe) 50 ml Q15M PRN IV DECREASED GLUCOSE; Start 12/02/16 at 23:00 Glucagon (Glucagen) 1 mg Q15M PRN IM DECREASED GLUCOSE; Start 12/02/16 at 23:00 Glucose (Glutose) 15 gm Q15M PRN BUCCAL DECREASED GLUCOSE; Start 12/02/16 at 23 :00 Aspirin (Halfprin) 81 mg DAILY PO Last administered on 12/12/16 08:52; Admin Dose 81 MG; Start 12/03/16 at 09:00 Gabapentin (Neurontin) 800 mg TID PO Last administered on 12/08/16 20:33; Admin Dose 800 MG; Start 12/03/16 at 09:00; Status Future Hold Meclizine HCl (Antivert) 25 mg TID PRN PO dizziness Last administered on 10:04; Admin Dose 25 MG; Start 12/02/16 at 23:00 Terazosin HCl (Hytrin) 5 mg HS PO Last administered on 12/07/16 20:28; Admin Dose 5 MG; Start 12/03/16 at 21:00; Status Future Hold Acetaminophen/ Hydrocodone Bitart ([place] (5/325)) 1 tab Q6H PRN PO PAIN LEVEL 4 -7 Last administered on 12/10/16 21:31; Admin Dose 1 TAB; Start 12/02/16 at 23: 30 Acetaminophen (Tylenol Tab) 650 mg Q6H PRN PO PAIN AND OR ELEVATED TEMP; Start 12/02/16 at 23:30 Docusate Sodium (Colace) 100 mg BID PO Last administered on 12/08/16 20:32; Admin Dose 100 MG; Start 12/03/16 at 09:00; Status Future Hold Pantoprazole (Protonix Tab) 40 mg DAILY@06 PO Last administered on 12/12/16 05 :47; Admin Dose 40 MG; Start 12/03/16 at 06:00 Zolpidem Tartrate (Ambien) 5 mg HS PRN PO INSOMNIA; Start 12/02/16 at 23:30 Benazepril HCl (Lotensin) 10 mg DAILY PO Last administered on 12/07/16 08:26; Admin Dose 10 MG; Start 12/04/16 at 09:00; Status Future Hold Insulin Glargine 25 unit 25 unit DAILY SC Last administered on 12/12/16 08:56 ; Admin Dose 25 UNIT; Start 12/06/16 at 09:00 Sodium Chloride (1/2 NS) 1,000 ml @ 70 mls/hr [id number] IV Last administered on 12/12/16 07:56; Admin Dose 70 MLS/HR; Start 12/07/16 at 12:30 Collagenase (Santyl) 1 applic DAILY TOP Last administered on 12/12/16 08:53; Admin Dose 1 APPLIC; Start 12/07/16 at 16:00 Lorazepam (Ativan) 2 mg Q2 PRN IV AGITATION/ANXIETY Last administered on 18:52; Admin Dose 2 MG; Start 12/09/16 at 09:30 Morphine Sulfate (morphine) 2 mg Q2H PRN IV PAIN; Start 12/09/16 at 09:30 Acetaminophen 650 mg 650 mg Q6H PRN [place] ELEVATED TEMPERATURE Last administered on 12/09/16 17:53; Admin Dose 650 MG; Start 12/09/16 at 17:00 Piperacillin Sod/ Tazobactam Sod (Zosyn 2.25gm/ 50ml (Pmx)) 50 ml @ 100 mls/hr Q12 IVPB Last administered on 12/12/16 08:52; Admin Dose 100 MLS/HR; Start at 21:00 Metoprolol Tartrate 5 mg 5 mg Q4H PRN IV HR>100 Last administered on 12/10/16 22:23; Admin Dose 5 MG; Start 12/09/16 at 17:48 Phenylephrine HCl/ Dextrose (Fernandez-Syneph/D5W) 500 ml @ 75 mls/hr TITRATE IV Last administered on 12/10/16 06:02; Admin Dose 10 MLS/HR; Start 12/09/16 at 22 :00 Amiodarone HCl (Cordarone) 200 mg BID PO Last administered on 12/12/16 08:52; Admin Dose 200 MG; Start 12/10/16 at 13:00 Hydralazine HCl (Apresoline) 10 mg Q6H PRN IV SBP>150mm hg ; Start 12/11/16 at 10:30 Metoprolol Tartrate (Lopressor) 25 mg BID PO Last administered on 12/12/16 08: 53; Admin Dose 25 MG; Start 12/11/16 at 21:00 IKE MULLER Dec 12, 2016 12:42
--- NOTE | 2016-12-12 13:26 | CONS ---
Date/Time of Note Date/Time of Note DATE: 12/12/16 TIME: 13:24 Assessment/Plan Assessment/Plan Chief Complaint/Hosp Course IMPRESSION: 1. Atrial fibrillation-having some PAF this am with mild RVR 2. Hypotension-now improved off pressors with mild HTN 3. Abnormal electrocardiogram with inferolateral T-wave inversions. 4. Respiratory failure, status post extubation 5. Nonhealing toe ulceration. 6. Peripheral arterial disease by arterial ultrasound of the lower extremities this admission. 7. Diabetes mellitus. 8. Fevers. 9. 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 Recc: -Tele -serial ecg -wean pat and follow BP closely -HD for volume removal -Trend cardiac enzymes -Continue asa -Continue heparin given now PAF/positive troponin -Continue PO amio in attempt to maintain SR -Continue low dose BB -Will consider lhc versus lexiscan given now positive troponin Problems: Consultation Date/Type/Reason Admit Date/Time Dec 02, 2016 at 21:01 Initial Consult Date 12/03/16 Type of Consultation: Cardiology Reason for Consultation CHF/positive troponin Referring Provider: VIET PARKER MD Exam/Review of Systems Vital Signs Vitals Vital Signs Date Time Temp Pulse Resp B/P Pulse Ox O2 Delivery O2 Flow Rate FiO2 12/12/16 12:23 88 12/12/16 11:41 98.3 18 113/42 95 12/12/16 08:00 Nasal Cannula 2.0 12/10/16 13:40 40 Intake and Output 12/11/16 12/11/16 12/12/16 15:00 23:00 07:00 Intake Total 350 ml 390 ml 1122 ml Output Total 2000 ml 25 ml 10 ml Balance -1650 ml 365 ml 1112 ml Exam Review of Systems: CONSTITUTIONAL: No fevers, chills. PULMONARY: mild sob CARDIOVASCULAR: No chest pain/palpitations GASTROINTESTINAL: No nausea/vomiting. GENITOURINARY: No hematuria/dysuria. MUSCULOSKELETAL: No myagias/arthalgias. PSYCHIATRIC: The patient denies depression. NEUROLOGIC: No weakness Constitutional: alert Psych: no complaints Head: normocephalic ENMT: mucosa pink and moist Neck: jvd (9 cm water), supple Respiratory: diminished breath sounds (at bases/B) Cardiovascular: regular rate and rhythm Gastrointestinal: non-tender, soft Musculoskeletal: muscle tone (normal) Extremities: edema (trace/B) Neurological: other (No focal deficits) Results Result Diagram: 12/11/16 0330 12/11/16 0330 Results 24 hrs Laboratory Tests Test 12/11/16 15:10 12/11/16 17:26 12/11/16 19:20 12/11/16 20:31 Activated Partial Thromboplast Time 53.1 H Bedside Glucose 231 H 199 190 Test 12/12/16 00:52 12/12/16 01:15 12/12/16 07:44 12/12/16 07:53 Activated Partial Thromboplast Time 78.0 *H 61.8 H Bedside Glucose 164 166 Test 12/12/16 12:05 Bedside Glucose 181 Medications Medications Current Medications Diagnostic Test (Pha) (Accu-Chek) 1 ea 02 XX Last administered on 12/12/16 01: 17; Admin Dose 1 EA; Start 12/03/16 at 02:00 Ondansetron HCl (Zofran Inj) 4 mg Q6H PRN IV NAUSEA AND/OR VOMITING; Start at 22:30 Miscellaneous Information 1 ea NOTE XX ; Start 12/02/16 at 23:00 Glucose (Glutose) 15 gm Q15M PRN PO DECREASED GLUCOSE; Start 12/02/16 at 23:00 Glucose (Glutose) 22.5 gm Q15M PRN PO DECREASED GLUCOSE; Start 12/02/16 at 23: 00 Dextrose (D50w Syringe) 25 ml Q15M PRN IV DECREASED GLUCOSE Last administered on 12/10/16 05:52; Admin Dose 25 ML; Start 12/02/16 at 23:00 Dextrose (D50w Syringe) 50 ml Q15M PRN IV DECREASED GLUCOSE; Start 12/02/16 at 23:00 Glucagon (Glucagen) 1 mg Q15M PRN IM DECREASED GLUCOSE; Start 12/02/16 at 23:00 Glucose (Glutose) 15 gm Q15M PRN BUCCAL DECREASED GLUCOSE; Start 12/02/16 at 23 :00 Aspirin (Halfprin) 81 mg DAILY PO Last administered on 12/12/16 08:52; Admin Dose 81 MG; Start 12/03/16 at 09:00 Gabapentin (Neurontin) 800 mg TID PO Last administered on 12/08/16 20:33; Admin Dose 800 MG; Start 12/03/16 at 09:00; Status Future Hold Meclizine HCl (Antivert) 25 mg TID PRN PO dizziness Last administered on 10:04; Admin Dose 25 MG; Start 12/02/16 at 23:00 Terazosin HCl (Hytrin) 5 mg HS PO Last administered on 12/07/16 20:28; Admin Dose 5 MG; Start 12/03/16 at 21:00; Status Future Hold Acetaminophen/ Hydrocodone Bitart ([place] (5/325)) 1 tab Q6H PRN PO PAIN LEVEL 4 -7 Last administered on 12/10/16 21:31; Admin Dose 1 TAB; Start 12/02/16 at 23: 30 Acetaminophen (Tylenol Tab) 650 mg Q6H PRN PO PAIN AND OR ELEVATED TEMP; Start 12/02/16 at 23:30 Docusate Sodium (Colace) 100 mg BID PO Last administered on 12/08/16 20:32; Admin Dose 100 MG; Start 12/03/16 at 09:00; Status Future Hold Pantoprazole (Protonix Tab) 40 mg DAILY@06 PO Last administered on 12/12/16 05 :47; Admin Dose 40 MG; Start 12/03/16 at 06:00 Zolpidem Tartrate (Ambien) 5 mg HS PRN PO INSOMNIA; Start 12/02/16 at 23:30 Benazepril HCl (Lotensin) 10 mg DAILY PO Last administered on 12/07/16 08:26; Admin Dose 10 MG; Start 12/04/16 at 09:00; Status Future Hold Insulin Glargine 25 unit 25 unit DAILY SC Last administered on 12/12/16 08:56 ; Admin Dose 25 UNIT; Start 12/06/16 at 09:00 Sodium Chloride (1/2 NS) 1,000 ml @ 70 mls/hr [id number] IV Last administered on 12/12/16 07:56; Admin Dose 70 MLS/HR; Start 12/07/16 at 12:30 Collagenase (Santyl) 1 applic DAILY TOP Last administered on 12/12/16 08:53; Admin Dose 1 APPLIC; Start 12/07/16 at 16:00 Lorazepam (Ativan) 2 mg Q2 PRN IV AGITATION/ANXIETY Last administered on 18:52; Admin Dose 2 MG; Start 12/09/16 at 09:30 Morphine Sulfate (morphine) 2 mg Q2H PRN IV PAIN; Start 12/09/16 at 09:30 Acetaminophen 650 mg 650 mg Q6H PRN [place] ELEVATED TEMPERATURE Last administered on 12/09/16 17:53; Admin Dose 650 MG; Start 12/09/16 at 17:00 Piperacillin Sod/ Tazobactam Sod (Zosyn 2.25gm/ 50ml (Pmx)) 50 ml @ 100 mls/hr Q12 IVPB Last administered on 12/12/16 08:52; Admin Dose 100 MLS/HR; Start at 21:00 Metoprolol Tartrate 5 mg 5 mg Q4H PRN IV HR>100 Last administered on 12/10/16 22:23; Admin Dose 5 MG; Start 12/09/16 at 17:48 Phenylephrine HCl/ Dextrose (Pat-Syneph/D5W) 500 ml @ 75 mls/hr TITRATE IV Last administered on 12/10/16 06:02; Admin Dose 10 MLS/HR; Start 12/09/16 at 22 :00 Amiodarone HCl (Cordarone) 200 mg BID PO Last administered on 12/12/16 08:52; Admin Dose 200 MG; Start 12/10/16 at 13:00 Hydralazine HCl (Apresoline) 10 mg Q6H PRN IV SBP>150mm hg ; Start 12/11/16 at 10:30 Metoprolol Tartrate (Lopressor) 25 mg BID PO Last administered on 12/12/16 08: 53; Admin Dose 25 MG; Start 12/11/16 at 21:00 VICENTE LESLIE Dec 12, 2016 13:26
[2016-12-12] MEDS: morphine 2 MG INJ IV PRN (14:45)
[2016-12-12] MEDS: ALBUTEROL 0.083% (NEB) 2.5 MG/3 ML AMP INH PRN (16:05)
[2016-12-12 16:09] LABS: PROTEIN URINE > 600.0 mg/dl (0.0-11.9); PROTEIN/CREAT RATIO > 6.57 RATIO
--- NOTE | 2016-12-12 16:51 | CONS ---
Date/Time of Note Date/Time of Note DATE: 12/12/16 TIME: 16:47 Assessment/Plan Assessment/Plan Additional Assessment/Plan 1. Oliguric to Anuric Acute kidney injury 2/2 ATN- started on HD on 12/09/16 for acute fluid overload and Pulmonary edema 2. acute resp failure intubated on ventilator -now extubated on 12/10/2016 2. Left foot diabetic ulcer/cellulitis currently on IV antibiotics, Zosyn and vancomycin. 3. History of diabetes mellitus, insulin-dependent with lower extremity neuropathy. 4. History of hypertension. 5. History of aortic stenosis with diastolic dysfunction with ejection fraction 60% on echocardiogram. PLAN: s/p HD x 3 days, extubated, transferred to telemety floor, pt is not making enough urine , BP stable HD ordered for tomorrow after my round currently Urine output is very low <20 cc/hr- it is important for his to have good urine output to avoid [facility] HD IV hydralazine prn will continue to follow up on patient Consultation Date/Type/Reason Admit Date/Time Dec 02, 2016 at 21:01 Initial Consult Date 12/07/16 Type of Consultation: NEPHROLOGY Referring Provider: VIET PARKER MD 24 HR Interval Summary Free Text/Dictation s/p HD yesterday, Extubated and transferred to telemetry floor Exam/Review of Systems Vital Signs Vitals Vital Signs Date Time Temp Pulse Resp B/P Pulse Ox O2 Delivery O2 Flow Rate FiO2 12/12/16 16:15 99 12/12/16 16:05 20 98 Non Rebreather Mask 100 12/12/16 16:03 98.4 162/72 12/12/16 08:00 2.0 Intake and Output 12/11/16 12/11/16 12/12/16 15:00 23:00 07:00 Intake Total 350 ml 390 ml 1122 ml Output Total 2000 ml 25 ml 10 ml Balance -1650 ml 365 ml 1112 ml Exam GENERAL: extubated, alert, awake HEENT: Normal. Oropharynx clear. NECK: Supple, no JVD LUNGS: decreased BS at bases, no crackles, no wheezing HEART: S1, S2, with regular rhythm, no murmur. ABDOMEN: Soft, nontender, nondistended. Bowel sounds are present. EXTREMITIES: left foot dressing in place, + Molina catheter in place NEUROLOGICAL: not able to assess Results Result Diagram: 12/11/16 0330 12/11/16 0330 Results 24 hrs Laboratory Tests Test 12/11/16 17:26 12/11/16 19:20 12/11/16 20:31 12/12/16 00:52 Bedside Glucose 231 H 199 190 Activated Partial Thromboplast Time 78.0 *H Test 12/12/16 01:15 12/12/16 07:44 12/12/16 07:53 12/12/16 12:05 Bedside Glucose 164 166 181 Activated Partial Thromboplast Time 61.8 H Test 12/12/16 13:00 12/12/16 14:00 12/12/16 15:26 Urine Eosinophils % 0.0 Urine Random Creatinine 91.32 Urine Random Sodium 93 H Urine Protein/Creatinine Ratio > 6.57 Urine Total Protein > 600.0 H Activated Partial Thromboplast Time 53.8 H Bedside Glucose 185 Medications Medications Current Medications Diagnostic Test (Pha) (Accu-Chek) 1 ea 02 XX Last administered on 12/12/16 01: 17; Admin Dose 1 EA; Start 12/03/16 at 02:00 Ondansetron HCl (Zofran Inj) 4 mg Q6H PRN IV NAUSEA AND/OR VOMITING; Start at 22:30 Miscellaneous Information 1 ea NOTE XX ; Start 12/02/16 at 23:00 Glucose (Glutose) 15 gm Q15M PRN PO DECREASED GLUCOSE; Start 12/02/16 at 23:00 Glucose (Glutose) 22.5 gm Q15M PRN PO DECREASED GLUCOSE; Start 12/02/16 at 23: 00 Dextrose (D50w Syringe) 25 ml Q15M PRN IV DECREASED GLUCOSE Last administered on 12/10/16 05:52; Admin Dose 25 ML; Start 12/02/16 at 23:00 Dextrose (D50w Syringe) 50 ml Q15M PRN IV DECREASED GLUCOSE; Start 12/02/16 at 23:00 Glucagon (Glucagen) 1 mg Q15M PRN IM DECREASED GLUCOSE; Start 12/02/16 at 23:00 Glucose (Glutose) 15 gm Q15M PRN BUCCAL DECREASED GLUCOSE; Start 12/02/16 at 23 :00 Aspirin (Halfprin) 81 mg DAILY PO Last administered on 12/12/16 08:52; Admin Dose 81 MG; Start 12/03/16 at 09:00 Gabapentin (Neurontin) 800 mg TID PO Last administered on 12/08/16 20:33; Admin Dose 800 MG; Start 12/03/16 at 09:00; Status Future Hold Meclizine HCl (Antivert) 25 mg TID PRN PO dizziness Last administered on 10:04; Admin Dose 25 MG; Start 12/02/16 at 23:00 Terazosin HCl (Hytrin) 5 mg HS PO Last administered on 12/07/16 20:28; Admin Dose 5 MG; Start 12/03/16 at 21:00; Status Future Hold Acetaminophen/ Hydrocodone Bitart ([place] (5/325)) 1 tab Q6H PRN PO PAIN LEVEL 4 -7 Last administered on 12/10/16 21:31; Admin Dose 1 TAB; Start 12/02/16 at 23: 30 Acetaminophen (Tylenol Tab) 650 mg Q6H PRN PO PAIN AND OR ELEVATED TEMP; Start 12/02/16 at 23:30 Docusate Sodium (Colace) 100 mg BID PO Last administered on 12/08/16 20:32; Admin Dose 100 MG; Start 12/03/16 at 09:00; Status Future Hold Pantoprazole (Protonix Tab) 40 mg DAILY@06 PO Last administered on 12/12/16 05 :47; Admin Dose 40 MG; Start 12/03/16 at 06:00 Zolpidem Tartrate (Ambien) 5 mg HS PRN PO INSOMNIA; Start 12/02/16 at 23:30 Benazepril HCl (Lotensin) 10 mg DAILY PO Last administered on 12/07/16 08:26; Admin Dose 10 MG; Start 12/04/16 at 09:00; Status Future Hold Insulin Glargine 25 unit 25 unit DAILY SC Last administered on 12/12/16 08:56 ; Admin Dose 25 UNIT; Start 12/06/16 at 09:00 Sodium Chloride (1/2 NS) 1,000 ml @ 70 mls/hr [id number] IV Last administered on 12/12/16 07:56; Admin Dose 70 MLS/HR; Start 12/07/16 at 12:30 Collagenase (Santyl) 1 applic DAILY TOP Last administered on 12/12/16 08:53; Admin Dose 1 APPLIC; Start 12/07/16 at 16:00 Lorazepam (Ativan) 2 mg Q2 PRN IV AGITATION/ANXIETY Last administered on 18:52; Admin Dose 2 MG; Start 12/09/16 at 09:30 Morphine Sulfate (morphine) 2 mg Q2H PRN IV PAIN Last administered on 14:45; Admin Dose 2 MG; Start 12/09/16 at 09:30 Acetaminophen 650 mg 650 mg Q6H PRN [place] ELEVATED TEMPERATURE Last administered on 12/09/16 17:53; Admin Dose 650 MG; Start 12/09/16 at 17:00 Piperacillin Sod/ Tazobactam Sod (Zosyn 2.25gm/ 50ml (Pmx)) 50 ml @ 100 mls/hr Q12 IVPB Last administered on 12/12/16 08:52; Admin Dose 100 MLS/HR; Start at 21:00 Metoprolol Tartrate 5 mg 5 mg Q4H PRN IV HR>100 Last administered on 12/10/16 22:23; Admin Dose 5 MG; Start 12/09/16 at 17:48 Phenylephrine HCl/ Dextrose (Fernandez-Syneph/D5W) 500 ml @ 75 mls/hr TITRATE IV Last administered on 12/10/16 06:02; Admin Dose 10 MLS/HR; Start 12/09/16 at 22 :00 Amiodarone HCl (Cordarone) 200 mg BID PO Last administered on 12/12/16 08:52; Admin Dose 200 MG; Start 12/10/16 at 13:00 Hydralazine HCl (Apresoline) 10 mg Q6H PRN IV SBP>150mm hg ; Start 12/11/16 at 10:30 Metoprolol Tartrate (Lopressor) 25 mg BID PO Last administered on 12/12/16 08: 53; Admin Dose 25 MG; Start 12/11/16 at 21:00 TASHIA MCGARRY MD Dec 12, 2016 16:51
--- NOTE | 2016-12-12 18:21 | CONS ---
Date/Time of Note Date/Time of Note DATE: 12/12/16 TIME: 18:18 Assessment/Plan Assessment/Plan Chief Complaint/Hosp Course assessment/impression - SIRS, lactic acid 1.8 on 12/09/2016, cultures in progress - cardiopulmonary arrest on 12/09/2016, on ventilator - diabetic infection of L 1st toe/foot. 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 and left fourth proximal phalanx - ARANZA, on HD from 12/09/2016 - A fib, in sinus as of this morning - troponin+ - DM - HTN recommendations: - I recommend changing pip/tazo 12/03/2016 to renally dosed levofloaxcin and metrondazole (to avoid beta lactam antibiotic in the setting of renal failure), no draining wound to sample for culture in order to guide antibiotic therapy - ultimately, Pt Pt needs 6 weeks of antibiotics to treat 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 and left fourth proximal phalanx: 2016 through 01/15/2017 management d/w Pt's RN Problems: Consultation Date/Type/Reason Admit Date/Time Dec 02, 2016 at 21:01 Initial Consult Date 12/03/16 Type of Consultation: ID Referring Provider: VIET PARKER MD 24 HR Interval Summary Free Text/Dictation would remove the face mask at times and causes O2 sat to drop Subjective hx not possible: pt non-verbal, other (lethargic, Pt denied pain) Exam/Review of Systems Vital Signs Vitals Vital Signs Date Time Temp Pulse Resp B/P Pulse Ox O2 Delivery O2 Flow Rate FiO2 12/12/16 16:15 99 12/12/16 16:05 20 98 Non Rebreather Mask 100 12/12/16 16:03 98.4 162/72 12/12/16 08:00 2.0 Intake and Output 12/11/16 12/11/16 12/12/16 15:00 23:00 07:00 Intake Total 350 ml 390 ml 1122 ml Output Total 2000 ml 25 ml 10 ml Balance -1650 ml 365 ml 1112 ml Exam Constitutional: non-verbal, other (diaphoretic) Psych: confusion Head: normocephalic Eyes: nl conjunctiva, nl lids ENMT: nl external ears & nose, nl nasal mucosa & septum Respiratory: clear to auscultation, normal air movement Cardiovascular: nl pulses, regular rate and rhythm Gastrointestinal: non-tender, soft Extremities: No edema Neurological: confused Skin: other (b/l feet are non-TTP) Results Result Diagram: 12/11/16 0330 12/11/16 0330 Results 24 hrs Laboratory Tests Test 12/11/16 19:20 12/11/16 20:31 12/12/16 00:52 12/12/16 01:15 Bedside Glucose 199 190 164 Activated Partial Thromboplast Time 78.0 *H Test 12/12/16 07:44 12/12/16 07:53 12/12/16 12:05 12/12/16 13:00 Activated Partial Thromboplast Time 61.8 H Bedside Glucose 166 181 Urine Eosinophils % 0.0 Urine Random Creatinine 91.32 Urine Random Sodium 93 H Urine Protein/Creatinine Ratio > 6.57 Urine Total Protein > 600.0 H Test 12/12/16 14:00 12/12/16 15:26 12/12/16 17:29 Activated Partial Thromboplast Time 53.8 H Bedside Glucose 185 227 H Medications Medications Current Medications Diagnostic Test (Pha) (Accu-Chek) 1 ea 02 XX Last administered on 12/12/16 01: 17; Admin Dose 1 EA; Start 12/03/16 at 02:00 Ondansetron HCl (Zofran Inj) 4 mg Q6H PRN IV NAUSEA AND/OR VOMITING; Start at 22:30 Miscellaneous Information 1 ea NOTE XX ; Start 12/02/16 at 23:00 Glucose (Glutose) 15 gm Q15M PRN PO DECREASED GLUCOSE; Start 12/02/16 at 23:00 Glucose (Glutose) 22.5 gm Q15M PRN PO DECREASED GLUCOSE; Start 12/02/16 at 23: 00 Dextrose (D50w Syringe) 25 ml Q15M PRN IV DECREASED GLUCOSE Last administered on 12/10/16 05:52; Admin Dose 25 ML; Start 12/02/16 at 23:00 Dextrose (D50w Syringe) 50 ml Q15M PRN IV DECREASED GLUCOSE; Start 12/02/16 at 23:00 Glucagon (Glucagen) 1 mg Q15M PRN IM DECREASED GLUCOSE; Start 12/02/16 at 23:00 Glucose (Glutose) 15 gm Q15M PRN BUCCAL DECREASED GLUCOSE; Start 12/02/16 at 23 :00 Aspirin (Halfprin) 81 mg DAILY PO Last administered on 12/12/16 08:52; Admin Dose 81 MG; Start 12/03/16 at 09:00 Gabapentin (Neurontin) 800 mg TID PO Last administered on 12/08/16 20:33; Admin Dose 800 MG; Start 12/03/16 at 09:00; Status Future Hold Meclizine HCl (Antivert) 25 mg TID PRN PO dizziness Last administered on 10:04; Admin Dose 25 MG; Start 12/02/16 at 23:00 Terazosin HCl (Hytrin) 5 mg HS PO Last administered on 12/07/16 20:28; Admin Dose 5 MG; Start 12/03/16 at 21:00; Status Future Hold Acetaminophen/ Hydrocodone Bitart ([place] (5/325)) 1 tab Q6H PRN PO PAIN LEVEL 4 -7 Last administered on 12/10/16 21:31; Admin Dose 1 TAB; Start 12/02/16 at 23: 30 Acetaminophen (Tylenol Tab) 650 mg Q6H PRN PO PAIN AND OR ELEVATED TEMP; Start 12/02/16 at 23:30 Docusate Sodium (Colace) 100 mg BID PO Last administered on 12/08/16 20:32; Admin Dose 100 MG; Start 12/03/16 at 09:00; Status Future Hold Pantoprazole (Protonix Tab) 40 mg DAILY@06 PO Last administered on 12/12/16 05 :47; Admin Dose 40 MG; Start 12/03/16 at 06:00 Zolpidem Tartrate (Ambien) 5 mg HS PRN PO INSOMNIA; Start 12/02/16 at 23:30 Benazepril HCl (Lotensin) 10 mg DAILY PO Last administered on 12/07/16 08:26; Admin Dose 10 MG; Start 12/04/16 at 09:00; Status Future Hold Insulin Glargine 25 unit 25 unit DAILY SC Last administered on 12/12/16 08:56 ; Admin Dose 25 UNIT; Start 12/06/16 at 09:00 Sodium Chloride (1/2 NS) 1,000 ml @ 70 mls/hr [id number] IV Last administered on 12/12/16 07:56; Admin Dose 70 MLS/HR; Start 12/07/16 at 12:30 Collagenase (Santyl) 1 applic DAILY TOP Last administered on 12/12/16 08:53; Admin Dose 1 APPLIC; Start 12/07/16 at 16:00 Lorazepam (Ativan) 2 mg Q2 PRN IV AGITATION/ANXIETY Last administered on 18:52; Admin Dose 2 MG; Start 12/09/16 at 09:30 Morphine Sulfate (morphine) 2 mg Q2H PRN IV PAIN Last administered on 14:45; Admin Dose 2 MG; Start 12/09/16 at 09:30 Acetaminophen 650 mg 650 mg Q6H PRN [place] ELEVATED TEMPERATURE Last administered on 12/09/16 17:53; Admin Dose 650 MG; Start 12/09/16 at 17:00 Piperacillin Sod/ Tazobactam Sod (Zosyn 2.25gm/ 50ml (Pmx)) 50 ml @ 100 mls/hr Q12 IVPB Last administered on 12/12/16 08:52; Admin Dose 100 MLS/HR; Start at 21:00 Metoprolol Tartrate 5 mg 5 mg Q4H PRN IV HR>100 Last administered on 12/10/16 22:23; Admin Dose 5 MG; Start 12/09/16 at 17:48 Phenylephrine HCl/ Dextrose (Fernandez-Syneph/D5W) 500 ml @ 75 mls/hr TITRATE IV Last administered on 12/10/16 06:02; Admin Dose 10 MLS/HR; Start 12/09/16 at 22 :00 Amiodarone HCl (Cordarone) 200 mg BID PO Last administered on 12/12/16 08:52; Admin Dose 200 MG; Start 12/10/16 at 13:00 Hydralazine HCl (Apresoline) 10 mg Q6H PRN IV SBP>150mm hg ; Start 12/11/16 at 10:30 Metoprolol Tartrate (Lopressor) 25 mg BID PO Last administered on 12/12/16 08: 53; Admin Dose 25 MG; Start 12/11/16 at 21:00 CHRISTY LOPEZ M.D. Dec 12, 2016 18:21
--- NOTE | 2016-12-12 18:24 | CONS ---
Date/Time of Note Date/Time of Note DATE: 12/12/16 TIME: 18:22 Assessment/Plan Assessment/Plan Chief Complaint/Hosp Course assessment/impression - SIRS, lactic acid 1.8 on 12/09/2016, cultures in progress - cardiopulmonary arrest on 12/09/2016, on ventilator - diabetic infection of L 1st toe/foot. 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 and left fourth proximal phalanx - ARANZA, on HD from 12/09/2016 - A fib, in sinus as of this morning - troponin+ - DM - HTN REVISED recommendations: - continue renally dosed pip/tazo 12/03/2016, no draining wound to sample for culture in order to guide antibiotic therapy. (quionolone would interactive with amio) - ultimately, Pt Pt needs 6 weeks of antibiotics to treat 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 and left fourth proximal phalanx: 2016 through 01/15/2017 management d/w Pt's RN Problems: Consultation Date/Type/Reason Admit Date/Time Dec 02, 2016 at 21:01 Initial Consult Date 12/03/16 Type of Consultation: ID Referring Provider: VIET PARKER MD Exam/Review of Systems Vital Signs Vitals Vital Signs Date Time Temp Pulse Resp B/P Pulse Ox O2 Delivery O2 Flow Rate FiO2 12/12/16 16:15 99 12/12/16 16:05 20 98 Non Rebreather Mask 100 12/12/16 16:03 98.4 162/72 12/12/16 08:00 2.0 Intake and Output 12/11/16 12/11/16 12/12/16 15:00 23:00 07:00 Intake Total 350 ml 390 ml 1122 ml Output Total 2000 ml 25 ml 10 ml Balance -1650 ml 365 ml 1112 ml Results Result Diagram: 12/11/16 0330 12/11/16 0330 Results 24 hrs Laboratory Tests Test 12/11/16 19:20 12/11/16 20:31 12/12/16 00:52 12/12/16 01:15 Bedside Glucose 199 190 164 Activated Partial Thromboplast Time 78.0 *H Test 12/12/16 07:44 12/12/16 07:53 12/12/16 12:05 12/12/16 13:00 Activated Partial Thromboplast Time 61.8 H Bedside Glucose 166 181 Urine Eosinophils % 0.0 Urine Random Creatinine 91.32 Urine Random Sodium 93 H Urine Protein/Creatinine Ratio > 6.57 Urine Total Protein > 600.0 H Test 12/12/16 14:00 12/12/16 15:26 12/12/16 17:29 Activated Partial Thromboplast Time 53.8 H Bedside Glucose 185 227 H Medications Medications Current Medications Diagnostic Test (Pha) (Accu-Chek) 1 ea 02 XX Last administered on 12/12/16 01: 17; Admin Dose 1 EA; Start 12/03/16 at 02:00 Ondansetron HCl (Zofran Inj) 4 mg Q6H PRN IV NAUSEA AND/OR VOMITING; Start at 22:30 Miscellaneous Information 1 ea NOTE XX ; Start 12/02/16 at 23:00 Glucose (Glutose) 15 gm Q15M PRN PO DECREASED GLUCOSE; Start 12/02/16 at 23:00 Glucose (Glutose) 22.5 gm Q15M PRN PO DECREASED GLUCOSE; Start 12/02/16 at 23: 00 Dextrose (D50w Syringe) 25 ml Q15M PRN IV DECREASED GLUCOSE Last administered on 12/10/16 05:52; Admin Dose 25 ML; Start 12/02/16 at 23:00 Dextrose (D50w Syringe) 50 ml Q15M PRN IV DECREASED GLUCOSE; Start 12/02/16 at 23:00 Glucagon (Glucagen) 1 mg Q15M PRN IM DECREASED GLUCOSE; Start 12/02/16 at 23:00 Glucose (Glutose) 15 gm Q15M PRN BUCCAL DECREASED GLUCOSE; Start 12/02/16 at 23 :00 Aspirin (Halfprin) 81 mg DAILY PO Last administered on 12/12/16 08:52; Admin Dose 81 MG; Start 12/03/16 at 09:00 Gabapentin (Neurontin) 800 mg TID PO Last administered on 12/08/16 20:33; Admin Dose 800 MG; Start 12/03/16 at 09:00; Status Future Hold Meclizine HCl (Antivert) 25 mg TID PRN PO dizziness Last administered on 10:04; Admin Dose 25 MG; Start 12/02/16 at 23:00 Terazosin HCl (Hytrin) 5 mg HS PO Last administered on 12/07/16 20:28; Admin Dose 5 MG; Start 12/03/16 at 21:00; Status Future Hold Acetaminophen/ Hydrocodone Bitart ([place] (5/325)) 1 tab Q6H PRN PO PAIN LEVEL 4 -7 Last administered on 12/10/16 21:31; Admin Dose 1 TAB; Start 12/02/16 at 23: 30 Acetaminophen (Tylenol Tab) 650 mg Q6H PRN PO PAIN AND OR ELEVATED TEMP; Start 12/02/16 at 23:30 Docusate Sodium (Colace) 100 mg BID PO Last administered on 12/08/16 20:32; Admin Dose 100 MG; Start 12/03/16 at 09:00; Status Future Hold Pantoprazole (Protonix Tab) 40 mg DAILY@06 PO Last administered on 12/12/16 05 :47; Admin Dose 40 MG; Start 12/03/16 at 06:00 Zolpidem Tartrate (Ambien) 5 mg HS PRN PO INSOMNIA; Start 12/02/16 at 23:30 Benazepril HCl (Lotensin) 10 mg DAILY PO Last administered on 12/07/16 08:26; Admin Dose 10 MG; Start 12/04/16 at 09:00; Status Future Hold Insulin Glargine 25 unit 25 unit DAILY SC Last administered on 12/12/16 08:56 ; Admin Dose 25 UNIT; Start 12/06/16 at 09:00 Sodium Chloride (1/2 NS) 1,000 ml @ 70 mls/hr [id number] IV Last administered on 12/12/16 07:56; Admin Dose 70 MLS/HR; Start 12/07/16 at 12:30 Collagenase (Santyl) 1 applic DAILY TOP Last administered on 12/12/16 08:53; Admin Dose 1 APPLIC; Start 12/07/16 at 16:00 Lorazepam (Ativan) 2 mg Q2 PRN IV AGITATION/ANXIETY Last administered on 18:52; Admin Dose 2 MG; Start 12/09/16 at 09:30 Morphine Sulfate (morphine) 2 mg Q2H PRN IV PAIN Last administered on 14:45; Admin Dose 2 MG; Start 12/09/16 at 09:30 Acetaminophen 650 mg 650 mg Q6H PRN [place] ELEVATED TEMPERATURE Last administered on 12/09/16 17:53; Admin Dose 650 MG; Start 12/09/16 at 17:00 Piperacillin Sod/ Tazobactam Sod (Zosyn 2.25gm/ 50ml (Pmx)) 50 ml @ 100 mls/hr Q12 IVPB Last administered on 12/12/16 08:52; Admin Dose 100 MLS/HR; Start at 21:00 Metoprolol Tartrate 5 mg 5 mg Q4H PRN IV HR>100 Last administered on 12/10/16 22:23; Admin Dose 5 MG; Start 12/09/16 at 17:48 Phenylephrine HCl/ Dextrose (Fernandez-Syneph/D5W) 500 ml @ 75 mls/hr TITRATE IV Last administered on 12/10/16 06:02; Admin Dose 10 MLS/HR; Start 12/09/16 at 22 :00 Amiodarone HCl (Cordarone) 200 mg BID PO Last administered on 12/12/16 08:52; Admin Dose 200 MG; Start 12/10/16 at 13:00 Hydralazine HCl (Apresoline) 10 mg Q6H PRN IV SBP>150mm hg ; Start 12/11/16 at 10:30 Metoprolol Tartrate (Lopressor) 25 mg BID PO Last administered on 12/12/16 08: 53; Admin Dose 25 MG; Start 12/11/16 at 21:00 CHRISTY LOPEZ M.D. Dec 12, 2016 18:24
[2016-12-13] VITALS (87 sets, daily range): BP systolic 73–172; BP diastolic 42–100; PULSE 29–89; RESP 14–20
[2016-12-13] MEDS: HEPARIN 25000 UNITS/250 ML 250 ML IV SCH ×2 (00:19→09:26)
[2016-12-13] MEDS: SOD CHLORIDE 0.45% 1,000 ML IV SCH ×2 (00:20→11:33)
[2016-12-13] MEDS: ZOLPIDEM 5 MG TAB PO PRN (00:45)
[2016-12-13] MEDS: ONDANSETRON 4 MG INJ IV PRN (01:13)
[2016-12-13] MEDS: ACCU-CHEK XX SCH (01:17)
[2016-12-13] MEDS: morphine 2 MG INJ IV PRN (02:00)
[2016-12-13] MEDS: LORAZEPAM 2 MG INJ IV PRN (03:32)
[2016-12-13 06:34] LABS: AADO2 Arterial 574.2 mmHg (7.0-24.0); Allen Test ACCEPTAB; Arterial Base Excess -6.7 mmol/L (-3.0-3); Arterial COHb 0.3 % (0.0-3.0); Arterial Fraction of Oxyhgb 76.2 % (93.0-99.0); Arterial HCO3 24.5 mmol/L (22.0-26.0); Arterial MetHb 0.4 % (0.0-1.5); Arterial Total Hemglobin 11.3 g/dl (12.0-18.0); MODE MASK - NRB
[2016-12-13 06:40] LABS: ADD SCAN DIFF NO
[2016-12-13 06:44] LABS: ABNORMAL IP MESSAGE 1; BASOPHILS % 0.1 % (0.0-2.0); HEMATOCRIT 32.3 % (42.0-52.0); HEMOGLOBIN 10.2 g/dl (14.0-18.0); LYMPHOCYTES # 1.1 10^3/ul (0.8-2.9); LYMPHOCYTES % 5.6 % (15.0-51.0); MEAN CORPUSCULAR HEMOGLOBIN 31.7 pg (29.0-33.0); MEAN CORPUSCULAR HGB CONC 31.6 g/dl (32.0-37.0); MEAN CORPUSCULAR VOLUME 100.3 fl (82.0-101.0); MEAN PLATELET VOLUME 10.8 fl (7.4-10.4); MONOCYTE # 1.6 10^3/ul (0.3-0.9); MONOCYTES % 7.9 % (0.0-11.0); NEUTROPHIL # 17.5 10^3/ul (1.6-7.5); NEUTROPHILS % 85.5 % (39.0-77.0); PLATELET COUNT 239 10^3/UL (140-415); RED BLOOD COUNT 3.22 10^6/ul (4.70-6.10); RED CELL DISTRIBUTION WIDTH 12.7 % (11.5-14.5); WHITE BLOOD COUNT 20.5 10^3/ul (4.8-10.8)
[2016-12-13] MEDS ORDERED: NALOXONE (0.4 MG/ML) INJ ONE (07:00)
[2016-12-13] MEDS ORDERED: ETOMIDATE 20 MG INJ ONE (07:00)
[2016-12-13 07:15] LABS: CK-MB 2.57 ng/ml (0.0-2.4)
[2016-12-13 07:18] LABS: TROPONIN-I 0.679 ng/ml (0.00-0.12)
--- NOTE | 2016-12-13 07:29 | QN ---
Documentation Comment Emergency medicine consultation and procedure note: HPI: 66-year-old man with a history of atrial fibrillation, recent respiratory failure status post extubation, diabetes mellitus, fevers, positive troponin, acute kidney injury was given lorazepam 1 mg intravenously and began to have increasing shortness of breath. Was called to evaluate and possibly intubate the patient. Past medical history: Atrial fibrillation, ARANZA, diabetes mellitus, peripheral artery disease, obesity, positive troponin, Physical exam: GENERAL: Elderly, chronically debilitated man, dyspneic, lethargic HEENT: Moist mucous membranes, pink conjunctiva, no goiter NEURO: Eyes closed, lethargic, arousable, no focal deficits or facial asymmetry CARDIAC: Regular rate and rhythm, no murmurs rubs or gallops LUNGS: Bilateral crackles, poor entry bilaterally, no wheezing or stridor ABDOMEN: Soft nontender, no guarding, no rigidity, no rebound, no psoas sign no obturator sign. SKIN: Warm and dry to touch, no abrasions, contusions, or hematomas, no lacerations, no ecchymosis, no target lesions, and without ulcers EXTREMITIES: No obvious cyanosis, 2+ pitting edema in the lower extremities, calves are bilaterally symmetrical, no Homans sign, no popliteal cord sign. Distal pulses equal and bilateral PSYCH: Unable to assess Medical decision making: Patient recently extubated is now dyspneic and last ABG reveals a PCO2 in the 80s, lethargic, requires intubation for breathing support and airway protection. Endotracheal Intubation by me: Pre assessment performed. See preceding note for details. Pre-oxygenation performed with 100% oxygen RSI: Performed w/o complication or hypoxic events. Medications as ordered. Blade: Mac 4 ET Tube: 7.5 cm Depth: 23 cm at the lip Intubation confirmed by colorimetric CO2, equal breath sounds, quiet over the stomach. Chest X-ray 1V Interpreted by me: 3 cm above the dorinda ET tube. Normal soft tissue, No pneumothorax. Cardiomegaly and bilateral pulmonary vascular congestion Diagnostic impression: #1 acute respiratory failure 2. Acute pulmonary edema TRAV MEADOWS MD December 13, 2016 07:29
--- NOTE | 2016-12-13 07:32 | RADRPT ---
PROCEDURE: Chest Radiograph. CLINICAL INDICATION: Respiratory distress TECHNIQUE: Single frontal chest radiograph. COMPARISON: Chest radiograph 12/11/2016 FINDINGS: There has been interval placement of endotracheal tube with the distal tip approximate 3.6 cm above the dorinda. The heart is magnified. Atherosclerotic calcifications are present.. Extensive bilate ral airspace disease is slightly worsened when compared to 1 day prior consistent with worsening pul monary edema or multifocal infiltrates. There are mildly worsening bibasilar opacities likely relate d to worsening small pleural effusion and/or possible infiltrates. The bones are intact. IMPRESSION: 1. Interval placement endotracheal tube approximately 3.6 cm above the dorinda. 2. Worsening bilateral edema/infiltrates. 3. Mildly worsening bibasilar pleural / parenchymal disease. RPTAT: [facility] .Robbie Choe MD, Date Time Electronically viewed and signed by .Robbie Choe MD, MD on 12/13/2016 07:32 .B/
[2016-12-13] MEDS: PANTOPRAZOLE (EC) 40 MG TAB PO SCH (07:35)
[2016-12-13] MEDS: INSULIN ASPART [NOVOLOG] 3 ML PEN SC SCH ×7 (07:35→21:00)
--- NOTE | 2016-12-13 07:43 | PN ---
Date/Time of Note Date/Time of Note DATE: 12/13/16 TIME: 07:42 Assessment/Plan Lines/Catheters IV Catheter Type (from [facility]): Saline Lock Molina in Place (from [facility]): Yes Assessment/Plan Chief Complaint/Hosp Course -Bilateral lower extremity atherosclerosis with left first toe plantar ulcer: It seems the patient has developed a first toe plantar ulcer,and diabetic foot infection which may be related to his fall over a week ago. The bilateral lower extremity noninvasive vascular studies demonstrated some infrapopliteal disease as the patient does not have palpable pedal pulses and has been a long time smoker. -Continue with antibiotics -No vascular intervention for now. Will follow the wound progress closely and would recommend an angiogram with possible intervention if poor wound healing arises -Optimize vascular status (BP meds, diet, nutrition, exercise, sugar control, antiplatelets, weight loss). -Discussed smoking cessation with the patient and he understands. -Discussed findings, plan and management with the patient with a certified compliance consultant and he understands. -Thank you for allowing us to partake in the care of your patient. Please call with any questions. Problems: Subjective 24 Hr Interval Summary no new vascular events overnight, tolerating HD Exam/Review of Systems Vital Signs Vitals Vital Signs Date Time Temp Pulse Resp B/P Pulse Ox O2 Delivery O2 Flow Rate FiO2 12/13/16 07:11 69 18 100 100 12/13/16 04:44 97.6 120/65 12/13/16 01:37 Mask 10.0 Intake and Output 12/12/16 12/12/16 12/13/16 15:00 23:00 07:00 Intake Total 128 ml 846 ml 887 ml Output Total 30 ml Balance 128 ml 816 ml 887 ml Exam Free Text/Dictation GENERAL: Alert and oriented x3, PULMONARY: Clear to auscultation bilaterally CARDIOVASCULAR: S1, S2 present ABDOMEN: Soft, nontender, nondistended. Bowel sounds positive. EXTREMITIES: Right lower extremity: Palpable femoral pulse, nonpalpable pedal pulse. Motor , sensory intact. Cap refill 3 to 4 seconds. No ulcers identified. Left lower extremity: Palpable femoral pulse, nonpalpable pedal pulse. Motor and sensory intact. Cap refill 3 to 4 seconds. First toe with erythema and edema about 1+ improving. Plantar ulcer of 1st metatarsal with callus and erythema slightly improving No drainage Results Result Diagram: 5/1/17 0630 12/11/16 0330 KAROLINE SHOEMAKER MD December 13, 2016 07:43
[2016-12-13] MEDS ORDERED: PHENYLephrine 20MG IN 250 ML 250 ML ONE (07:48)
[2016-12-13 07:57] LABS: CALCIUM 8.1 mg/dl (8.4-10.2); CREATININE 8.04 mg/dl (0.61-1.24)
[2016-12-13 07:58] LABS: POTASSIUM 5.9 mmol/L (3.5-5.1)
[2016-12-13] MEDS: PHENYLephrine 40 MG in DEXTROSE 5% 496 ML IV SCH ×2 (08:25→15:21)
[2016-12-13] MEDS: ASPIRIN (EC) 81 MG TAB PO SCH (08:41)
[2016-12-13] MEDS: PIPER-TAZO 2.25 GM (PMX) 50 ML IVPB SCH ×2 (08:41→20:49)
[2016-12-13] MEDS: AMIODARONE 200 MG TAB PO SCH ×2 (08:41→20:49)
[2016-12-13] MEDS: COLLAGENASE 30 GM TUBE TOP SCH (08:42)
[2016-12-13] MEDS: METOPROLOL 25 MG TAB PO SCH (08:42)
[2016-12-13] MEDS: INSULIN GLARGINE [LANtus] 3 ML PEN SC SCH (08:47)
[2016-12-13] MEDS ORDERED: LIDOCAINE 1% (MPF) 5 ML VIAL SC SCH (09:00)
[2016-12-13] MEDS ORDERED: PROPOFOL 100 ML ONE (09:41)
--- NOTE | 2016-12-13 09:53 | CONS ---
Date/Time of Note Date/Time of Note DATE: 12/13/16 TIME: 09:51 Consult Date/Type/Reason Admit Date/Time Dec 02, 2016 at 21:01 Initial Consult Date 12/03/16 Type of Consultation: Pulmonary ICU Ordering Provider: VIET PARKER MD Subjective Patient had respiratory distress this morning with significant hypoxia requiring emergent intubation mechanical ventilation Objective Vital Signs Date Time Temp Pulse Resp B/P Pulse Ox O2 Delivery O2 Flow Rate FiO2 12/13/16 08:00 63 12/13/16 07:45 18 88/46 100 Mechanical Ventilator 12/13/16 07:15 96.9 12/13/16 07:11 100 12/13/16 06:40 10.0 Intake and Output 12/12/16 12/12/16 12/13/16 15:00 23:00 07:00 Intake Total 128 ml 846 ml 1187 ml Output Total 30 ml 150 ml Balance 128 ml 816 ml 1037 ml Exam PHYSICAL EXAMINATION: GENERAL: Elderly [place] gentleman, intubated on mechanical ventilation, appears comfortable at rest, no acute distress. VITAL SIGNS: As above NECK: Supple. No JVD or lymphadenopathy. CARDIAC: S1, S2, no added sounds or murmurs. CHEST: Diminished air entry bilaterally. ABDOMEN: Soft, nontender. No guarding or rebound. EXTREMITIES: No cyanosis, clubbing, edema. NEUROLOGIC: Generalized weakness, but no focal deficits. Results/Medications Result Diagram: 12/13/16 0630 12/13/16 0630 Results 24 hrs Laboratory Tests Test 12/12/16 12:05 12/12/16 13:00 12/12/16 14:00 12/12/16 15:26 Bedside Glucose 181 185 Urine Eosinophils % 0.0 Urine Random Creatinine 91.32 Urine Random Sodium 93 H Urine Protein/Creatinine Ratio > 6.57 Urine Total Protein > 600.0 H Activated Partial Thromboplast Time 53.8 H Test 12/12/16 17:29 12/12/16 20:42 12/12/16 22:40 12/13/16 01:16 Bedside Glucose 227 H 198 187 Activated Partial Thromboplast Time 78.5 *H Test 12/13/16 06:23 12/13/16 06:30 Blood Gas Specimen Source Blood arterial Arterial Blood Date Drawn 12/13/2016 6:25:51 AM Arterial Blood pH (Temp corrected) 7.081 *L Arterial Blood pCO2 (Temp correct) 84.3 *H Arterial Blood pO2 (Temp corrected) 54.5 *L Arterial Blood HCO3 24.5 Arterial Blood Base Excess -6.7 L Arterial Blood Oxygen Saturation 76.7 L Derek Test ACCEPTAB Arterial Blood Gas Puncture Site Right Radial Arterial Blood Carboxyhemoglobin 0.3 Arterial Blood Methemoglobin 0.4 Blood Gas A-a O2 Differential 574.2 H Oxyhemoglobin Percent 76.2 L Total Hemoglobin 11.3 L Blood Gas Temperature 37.0 Blood Gas Modality MASK - NRB FiO2 100.0 Blood Gas Critical Value Read Back RO[facility] [employer] Blood Gas Notified Whom LW Blood Gas Notified Time 12/13/2016 6:33:44 AM Bedside Glucose 239 H White Blood Count 20.5 #H Red Blood Count 3.22 L Hemoglobin 10.2 L Hematocrit 32.3 L Mean Corpuscular Volume 100.3 Mean Corpuscular Hemoglobin 31.7 Mean Corpuscular Hemoglobin Concent 31.6 L Red Cell Distribution Width 12.7 Platelet Count 239 # Mean Platelet Volume 10.8 H Neutrophils % 85.5 H Lymphocytes % 5.6 L Monocytes % 7.9 Eosinophils % 0.0 Basophils % 0.1 Nucleated Red Blood Cells % 0.0 Neutrophils # 17.5 H Lymphocytes # 1.1 Monocytes # 1.6 H Eosinophils # 0.0 Basophils # 0.0 Nucleated Red Blood Cells # 0.0 Activated Partial Thromboplast Time 73.4 *H Sodium Level 133 L Potassium Level 5.9 H Chloride Level 98 Carbon Dioxide Level 21 Anion Gap 20 H Blood Urea Nitrogen 37 H Creatinine 8.04 H Glucose Level 246 H Calcium Level 8.1 L Creatine Kinase 26 Creatine Kinase Index 9.9 Creatinine Kinase MB (Mass) 2.57 H Troponin I 0.679 *H Medications Current Medications Diagnostic Test (Pha) (Accu-Chek) 1 ea 02 XX Last administered on 12/13/16 01: 17; Admin Dose 1 EA; Start 12/03/16 at 02:00 Ondansetron HCl (Zofran Inj) 4 mg Q6H PRN IV NAUSEA AND/OR VOMITING Last administered on 12/13/16 01:13; Admin Dose 4 MG; Start 12/02/16 at 22:30 Miscellaneous Information 1 ea NOTE XX ; Start 12/02/16 at 23:00 Glucose (Glutose) 15 gm Q15M PRN PO DECREASED GLUCOSE; Start 12/02/16 at 23:00 Glucose (Glutose) 22.5 gm Q15M PRN PO DECREASED GLUCOSE; Start 12/02/16 at 23: 00 Dextrose (D50w Syringe) 25 ml Q15M PRN IV DECREASED GLUCOSE Last administered on 12/10/16 05:52; Admin Dose 25 ML; Start 12/02/16 at 23:00 Dextrose (D50w Syringe) 50 ml Q15M PRN IV DECREASED GLUCOSE; Start 12/02/16 at 23:00 Glucagon (Glucagen) 1 mg Q15M PRN IM DECREASED GLUCOSE; Start 12/02/16 at 23:00 Glucose (Glutose) 15 gm Q15M PRN BUCCAL DECREASED GLUCOSE; Start 12/02/16 at 23 :00 Aspirin (Halfprin) 81 mg DAILY PO Last administered on 12/13/16 08:41; Admin Dose 81 MG; Start 12/03/16 at 09:00 Gabapentin (Neurontin) 800 mg TID PO Last administered on 12/08/16 20:33; Admin Dose 800 MG; Start 12/03/16 at 09:00; Status Future Hold Meclizine HCl (Antivert) 25 mg TID PRN PO dizziness Last administered on 10:04; Admin Dose 25 MG; Start 12/02/16 at 23:00 Terazosin HCl (Hytrin) 5 mg HS PO Last administered on 12/07/16 20:28; Admin Dose 5 MG; Start 12/03/16 at 21:00; Status Future Hold Acetaminophen/ Hydrocodone Bitart ([place] (5/325)) 1 tab Q6H PRN PO PAIN LEVEL 4 -7 Last administered on 12/10/16 21:31; Admin Dose 1 TAB; Start 12/02/16 at 23: 30 Acetaminophen (Tylenol Tab) 650 mg Q6H PRN PO PAIN AND OR ELEVATED TEMP; Start 12/02/16 at 23:30 Docusate Sodium (Colace) 100 mg BID PO Last administered on 12/08/16 20:32; Admin Dose 100 MG; Start 12/03/16 at 09:00; Status Future Hold Pantoprazole (Protonix Tab) 40 mg DAILY@06 PO Last administered on 12/12/16 05 :47; Admin Dose 40 MG; Start 12/03/16 at 06:00 Zolpidem Tartrate (Ambien) 5 mg HS PRN PO INSOMNIA Last administered on 00:45; Admin Dose 5 MG; Start 12/02/16 at 23:30 Benazepril HCl (Lotensin) 10 mg DAILY PO Last administered on 12/07/16 08:26; Admin Dose 10 MG; Start 12/04/16 at 09:00; Status Future Hold Insulin Glargine 25 unit 25 unit DAILY SC Last administered on 12/13/16 08:47; Admin Dose 25 UNIT; Start 12/06/16 at 09:00 Sodium Chloride (1/2 NS) 1,000 ml @ 70 mls/hr [id number] IV Last administered on 12/13/16 00:20; Admin Dose 70 MLS/HR; Start 12/07/16 at 12:30 Collagenase (Santyl) 1 applic DAILY TOP Last administered on 12/13/16 08:42; Admin Dose 1 APPLIC; Start 12/07/16 at 16:00 Lorazepam (Ativan) 2 mg Q2 PRN IV AGITATION/ANXIETY Last administered on 03:32; Admin Dose 1 MG; Start 12/09/16 at 09:30 Morphine Sulfate (morphine) 2 mg Q2H PRN IV PAIN Last administered on 12/13/16 02:00; Admin Dose 2 MG; Start 12/09/16 at 09:30 Acetaminophen 650 mg 650 mg Q6H PRN OR ELEVATED TEMPERATURE Last administered on 12/09/16 17:53; Admin Dose 650 MG; Start 12/09/16 at 17:00 Piperacillin Sod/ Tazobactam Sod (Zosyn 2.25gm/ 50ml (Pmx)) 50 ml @ 100 mls/hr Q12 IVPB Last administered on 12/13/16 08:41; Admin Dose 100 MLS/HR; Start at 21:00 Metoprolol Tartrate 5 mg 5 mg Q4H PRN IV HR>100 Last administered on 12/10/16 22:23; Admin Dose 5 MG; Start 12/09/16 at 17:48 Phenylephrine HCl/ Dextrose (Fernandez-Syneph/D5W) 500 ml @ 75 mls/hr TITRATE IV Last administered on 12/13/16 08:25; Admin Dose 15 MLS/HR; Start 12/09/16 at 22: 00 Amiodarone HCl (Cordarone) 200 mg BID PO Last administered on 12/13/16 08:41; Admin Dose 200 MG; Start 12/10/16 at 13:00 Hydralazine HCl (Apresoline) 10 mg Q6H PRN IV SBP>150mm hg ; Start 12/11/16 at 10:30 Metoprolol Tartrate (Lopressor) 25 mg BID PO Last administered on 12/12/16 20: 51; Admin Dose 25 MG; Start 12/11/16 at 21:00 Lidocaine (Xylocaine 1% (Mpf)) 5 ml ONCE SC ; Start 12/13/16 at 09:00; Stop at 12:00 Morphine Sulfate 2 mg 2 mg Q2H PRN IV PAIN LEVEL 4-7; Start 12/13/16 at 10:00 Propofol (Diprivan) 100 ml @ 2.544 mls/ hr Q12H IV ; Start 12/13/16 at 10:00 Assessment/Plan Chief Complaint/Hosp Course IMPRESSION AND PLAN: 1. Acute kidney injury. 2. Hypoxemic respiratory failure possibly secondary to aspiration pneumonia 3. Underlying pulmonary edema secondary to renal insufficiency with volume overload 4. Hypercapnic respiratory failure. 5. Diabetic foot ulcer 6. History of diabetes mellitus The patient will require 1. Continued mechanical ventilation. 2. Renal recommendations. Hemodialysis today per nephrology, volume removal as tolerated 3. Antibiotics for aspiration pneumonia, ID recommendations 4. DVT and GI prophylaxis. 5. Wound care per vascular surgery and podiatry Disposition Continue ICU care Critical care time 40 minutes Problems: AUDELIA BARRIENTOS MD, FCCP December 13, 2016 09:53
[2016-12-13] MEDS ORDERED: morphine 2 MG INJ IV PRN (10:00)
[2016-12-13] MEDS ORDERED: PROPOFOL 100 ML IV SCH (10:00)
[2016-12-13 10:31] LABS: AADO2 Arterial 301.5 mmHg (7.0-24.0); Allen Test ACCEPTAB; Arterial COHb 0.3 % (0.0-3.0); Arterial Fraction of Oxyhgb 98.8 % (93.0-99.0); Arterial HCO3 20.9 mmol/L (22.0-26.0); Arterial MetHb 0.4 % (0.0-1.5); Arterial Total Hemglobin 8.9 g/dl (12.0-18.0); MODE VENT - AC
[2016-12-13] MEDS: PROPOFOL 100 ML IV SCH ×3 (10:51→23:26)
--- NOTE | 2016-12-13 11:03 | CONS ---
Date/Time of Note Date/Time of Note DATE: 12/13/16 TIME: 11:00 Assessment/Plan Assessment/Plan Additional Assessment/Plan 1. Oliguric to Anuric Acute kidney injury 2/2 ATN- started on HD on 12/09/16 for acute fluid overload and Pulmonary edema 2. acute resp failure intubated on ventilator -now extubated on 12/10/2016- then again reintubated on 12/13/2016 2. Left foot diabetic ulcer/cellulitis currently on IV antibiotics, Zosyn and vancomycin. 3. History of diabetes mellitus, insulin-dependent with lower extremity neuropathy. 4. History of hypertension. 5. History of aortic stenosis with diastolic dysfunction with ejection fraction 60% on echocardiogram. PLAN: pt had a TRIAL ATTORNEY today AM, intubated for resp failure, plan for HD today currently Urine output is very low <20 cc/hr- it is important for his to have good urine output to avoid fpc HD , since he is reintubated again- his chances of coming off HD is very poor, he will be fpc HD patient - will discuss with family at bedside whenever they are ready to have that discussion( does not want to talk about that at this time) IV hydralazine prn will continue to follow up on patient Consultation Date/Type/Reason Admit Date/Time Dec 02, 2016 at 21:01 Initial Consult Date 12/07/16 Type of Consultation: NEPHROLOGY Reason for Consultation acute kidney injury resulted in Fluid overload and hyperkalemia started on HD emergently Referring Provider: VIET PARKER MD 24 HR Interval Summary Free Text/Dictation pt had a TRIAL ATTORNEY called in today AM, intubated for acute resp failure, Exam/Review of Systems Vital Signs Vitals Vital Signs Date Time Temp Pulse Resp B/P Pulse Ox O2 Delivery O2 Flow Rate FiO2 12/13/16 10:43 50 12/13/16 10:30 58 18 95/58 100 Mechanical Ventilator 12/13/16 08:00 97.3 12/13/16 06:40 10.0 Intake and Output 12/12/16 12/12/16 12/13/16 14:59 22:59 06:59 Intake Total 112 ml 862 ml 1187 ml Output Total 30 ml 50 ml Balance 112 ml 832 ml 1137 ml Exam GENERAL: intubated on ventilator HEENT: Normal. Oropharynx clear. NECK: + JVD LUNGS: bilateral basilar crackles HEART: S1, S2, with regular rhythm, no murmur. ABDOMEN: Soft, nontender, nondistended. Bowel sounds are present. EXTREMITIES: left foot dressing in place, + Molina catheter in place NEUROLOGICAL: not able to assess Results Result Diagram: 12/13/16 0630 12/13/16 0630 Results 24 hrs Laboratory Tests Test 12/12/16 12:05 12/12/16 13:00 12/12/16 14:00 12/12/16 15:26 Bedside Glucose 181 185 Urine Eosinophils % 0.0 Urine Random Creatinine 91.32 Urine Random Sodium 93 H Urine Protein/Creatinine Ratio > 6.57 Urine Total Protein > 600.0 H Activated Partial Thromboplast Time 53.8 H Test 12/12/16 17:29 12/12/16 20:42 12/12/16 22:40 12/13/16 01:16 Bedside Glucose 227 H 198 187 Activated Partial Thromboplast Time 78.5 *H Test 12/13/16 06:23 12/13/16 06:30 12/13/16 09:48 Blood Gas Specimen Source Blood arterial Blood arterial Arterial Blood Date Drawn 12/13/2016 6:25:51 AM 12/13/2016 10:05:09 AM Arterial Blood pH (Temp corrected) 7.081 *L 7.365 Arterial Blood pCO2 (Temp correct) 84.3 *H 37.5 Arterial Blood pO2 (Temp corrected) 54.5 *L 374.0 H Arterial Blood HCO3 24.5 20.9 L Arterial Blood Base Excess -6.7 L -4.0 L Arterial Blood Oxygen Saturation 76.7 L 99.5 H Derek Test ACCEPTAB ACCEPTAB Arterial Blood Gas Puncture Site Right Radial Right Radial Arterial Blood Carboxyhemoglobin 0.3 0.3 Arterial Blood Methemoglobin 0.4 0.4 Blood Gas A-a O2 Differential 574.2 H 301.5 H Oxyhemoglobin Percent 76.2 L 98.8 Total Hemoglobin 11.3 L 8.9 L Blood Gas Temperature 37.0 37.0 Blood Gas Modality MASK - NRB VENT - AC FiO2 100.0 100.0 Blood Gas Critical Value Read Back [employer] TRI[employer] ATTORNEY Blood Gas Notified Whom JORGE POP Blood Gas Notified Time 12/13/2016 6:33:44 AM 12/13/2016 10:30:58 AM Bedside Glucose 239 H White Blood Count 20.5 #H Red Blood Count 3.22 L Hemoglobin 10.2 L Hematocrit 32.3 L Mean Corpuscular Volume 100.3 Mean Corpuscular Hemoglobin 31.7 Mean Corpuscular Hemoglobin Concent 31.6 L Red Cell Distribution Width 12.7 Platelet Count 239 # Mean Platelet Volume 10.8 H Neutrophils % 85.5 H Lymphocytes % 5.6 L Monocytes % 7.9 Eosinophils % 0.0 Basophils % 0.1 Nucleated Red Blood Cells % 0.0 Neutrophils # 17.5 H Lymphocytes # 1.1 Monocytes # 1.6 H Eosinophils # 0.0 Basophils # 0.0 Nucleated Red Blood Cells # 0.0 Differential Comment AUTO w/SCAN Activated Partial Thromboplast Time 73.4 *H Sodium Level 133 L Potassium Level 5.9 H Chloride Level 98 Carbon Dioxide Level 21 Anion Gap 20 H Blood Urea Nitrogen 37 H Creatinine 8.04 H Glucose Level 246 H Calcium Level 8.1 L Creatine Kinase 26 Creatine Kinase Index 9.9 Creatinine Kinase MB (Mass) 2.57 H Troponin I 0.679 *H Blood Gas Respiration Rate 18.0 Blood Gas Actual Respiration Rate 18 Blood Gas Tidal Volume 550.0 Blood Gas Low PEEP Setting 5.0 Medications Medications Current Medications Diagnostic Test (Pha) (Accu-Chek) 1 ea 02 XX Last administered on 12/13/16 01: 17; Admin Dose 1 EA; Start 12/03/16 at 02:00 Ondansetron HCl (Zofran Inj) 4 mg Q6H PRN IV NAUSEA AND/OR VOMITING Last administered on 12/13/16 01:13; Admin Dose 4 MG; Start 12/02/16 at 22:30 Miscellaneous Information 1 ea NOTE XX ; Start 12/02/16 at 23:00 Glucose (Glutose) 15 gm Q15M PRN PO DECREASED GLUCOSE; Start 12/02/16 at 23:00 Glucose (Glutose) 22.5 gm Q15M PRN PO DECREASED GLUCOSE; Start 12/02/16 at 23: 00 Dextrose (D50w Syringe) 25 ml Q15M PRN IV DECREASED GLUCOSE Last administered on 12/10/16 05:52; Admin Dose 25 ML; Start 12/02/16 at 23:00 Dextrose (D50w Syringe) 50 ml Q15M PRN IV DECREASED GLUCOSE; Start 12/02/16 at 23:00 Glucagon (Glucagen) 1 mg Q15M PRN IM DECREASED GLUCOSE; Start 12/02/16 at 23:00 Glucose (Glutose) 15 gm Q15M PRN BUCCAL DECREASED GLUCOSE; Start 12/02/16 at 23 :00 Aspirin (Halfprin) 81 mg DAILY PO Last administered on 12/13/16 08:41; Admin Dose 81 MG; Start 12/03/16 at 09:00 Gabapentin (Neurontin) 800 mg TID PO Last administered on 12/08/16 20:33; Admin Dose 800 MG; Start 12/03/16 at 09:00; Status Future Hold Meclizine HCl (Antivert) 25 mg TID PRN PO dizziness Last administered on 10:04; Admin Dose 25 MG; Start 12/02/16 at 23:00 Terazosin HCl (Hytrin) 5 mg HS PO Last administered on 12/07/16 20:28; Admin Dose 5 MG; Start 12/03/16 at 21:00; Status Future Hold Acetaminophen/ Hydrocodone Bitart ([place] (5/325)) 1 tab Q6H PRN PO PAIN LEVEL 4 -7 Last administered on 12/10/16 21:31; Admin Dose 1 TAB; Start 12/02/16 at 23: 30 Acetaminophen (Tylenol Tab) 650 mg Q6H PRN PO PAIN AND OR ELEVATED TEMP; Start 12/02/16 at 23:30 Docusate Sodium (Colace) 100 mg BID PO Last administered on 12/08/16 20:32; Admin Dose 100 MG; Start 12/03/16 at 09:00; Status Future Hold Pantoprazole (Protonix Tab) 40 mg DAILY@06 PO Last administered on 12/12/16 05 :47; Admin Dose 40 MG; Start 12/03/16 at 06:00 Zolpidem Tartrate (Ambien) 5 mg HS PRN PO INSOMNIA Last administered on 00:45; Admin Dose 5 MG; Start 12/02/16 at 23:30 Benazepril HCl (Lotensin) 10 mg DAILY PO Last administered on 12/07/16 08:26; Admin Dose 10 MG; Start 12/04/16 at 09:00; Status Future Hold Insulin Glargine 25 unit 25 unit DAILY SC Last administered on 12/13/16 08:47; Admin Dose 25 UNIT; Start 12/06/16 at 09:00 Sodium Chloride (1/2 NS) 1,000 ml @ 70 mls/hr [id number] IV Last administered on 12/13/16 00:20; Admin Dose 70 MLS/HR; Start 12/07/16 at 12:30 Collagenase (Santyl) 1 applic DAILY TOP Last administered on 12/13/16 08:42; Admin Dose 1 APPLIC; Start 12/07/16 at 16:00 Lorazepam (Ativan) 2 mg Q2 PRN IV AGITATION/ANXIETY Last administered on 03:32; Admin Dose 1 MG; Start 12/09/16 at 09:30 Morphine Sulfate (morphine) 2 mg Q2H PRN IV PAIN Last administered on 12/13/16 02:00; Admin Dose 2 MG; Start 12/09/16 at 09:30 Acetaminophen 650 mg [address] ELEVATED TEMPERATURE Last administered on 12/09/16 17:53; Admin Dose 650 MG; Start 12/09/16 at 17:00 Piperacillin Sod/ Tazobactam Sod (Zosyn 2.25gm/ 50ml (Pmx)) 50 ml @ 100 mls/hr Q12 IVPB Last administered on 12/13/16 08:41; Admin Dose 100 MLS/HR; Start at 21:00 Metoprolol Tartrate 5 mg 5 mg Q4H PRN IV HR>100 Last administered on 12/10/16 22:23; Admin Dose 5 MG; Start 12/09/16 at 17:48 Phenylephrine HCl/ Dextrose (Fernandez-Syneph/D5W) 500 ml @ 75 mls/hr TITRATE IV Last administered on 12/13/16 08:25; Admin Dose 15 MLS/HR; Start 12/09/16 at 22: 00 Amiodarone HCl (Cordarone) 200 mg BID PO Last administered on 12/13/16 08:41; Admin Dose 200 MG; Start 12/10/16 at 13:00 Hydralazine HCl (Apresoline) 10 mg Q6H PRN IV SBP>150mm hg ; Start 12/11/16 at 10:30 Metoprolol Tartrate (Lopressor) 25 mg BID PO Last administered on 12/12/16 20: 51; Admin Dose 25 MG; Start 12/11/16 at 21:00 Lidocaine (Xylocaine 1% (Mpf)) 5 ml ONCE SC ; Start 12/13/16 at 09:00; Stop at 12:00 Morphine Sulfate 2 mg 2 mg Q2H PRN IV PAIN LEVEL 4-7; Start 12/13/16 at 10:00 Propofol (Diprivan) 100 ml @ 2.544 mls/ hr Q12H IV Last administered on 10:51; Admin Dose 5.088 MLS/HR; Start 12/13/16 at 10:00 TASHIA MCGARRY MD December 13, 2016 11:03
--- NOTE | 2016-12-13 11:37 | PN ---
Date/Time of Note Date/Time of Note DATE: 12/13/16 TIME: 11:31 Assessment/Plan VTE Prophylaxis VTE Prophylaxis Intervention: SCD's Lines/Catheters IV C[facility]ter Type (from [facility] Peripheral IV Urinary Cath still in place: Yes Reason Cath still needed: urinary retention Assessment/Plan Chief Complaint/Hosp Course Assessment/Plan - Acute respiratory failure secondary to pulmonary edema, patient is currently intubated, on vent support. Dr. Alvarez is following from pulmonology standpoint. - Acute renal failure, Dr. Remy, nephrology consultation is appreciated. Continue hemodialysis per nephrology. - Paroxysmal atrial fibrillation and positive troponin. Continue heparin drip per protocol. Dr. Cobian is following and cardiology consultation. - Hypotension, continued on pressors for hemodynamic support. - Diabetic foot ulcer of the left foot, Dr Lin is following in podiatry consultation. - Cellulitis of left foot, 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 and left fourth proximal phalanx per bone scan, continue antibiotics, Dr. Pascual is following in infection disease consultation. Continue antibiotics per ID. - IDDM, continue metformin and Lantus and pre-meal NovoLog. - Aortic stenosis - Diastolic dysfunction congestive heart failure with preserved ejection fraction of 60%. Patient's condition and plan of care discussed with patient's at the bedside. Further recommendations based on clinical course. Plan of care discussed with Dr. Heredia. Problems: Subjective 24 Hr Interval Summary Free Text/Dictation Patient was reintubated in a.m. 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 Exam/Review of Systems Vital Signs Vitals Vital Signs Date Time Temp Pulse Resp B/P Pulse Ox O2 Delivery O2 Flow Rate FiO2 12/13/16 11:15 62 18 108/62 100 12/13/16 11:00 Mechanical Ventilator 12/13/16 10:43 50 12/13/16 08:00 97.3 12/13/16 06:40 10.0 Intake and Output 12/12/16 12/12/16 12/13/16 15:00 23:00 07:00 Intake Total 128 ml 846 ml 1187 ml Output Total 30 ml 150 ml Balance 128 ml 816 ml 1037 ml Exam Constitutional: Sedated, orally intubated on vent support Psych: no complaints Head: atraumatic, normocephalic Eyes: nl conjunctiva ENMT: nl external ears & nose Neck: non-tender, supple Respiratory: clear to auscultation, normal air movement Cardiovascular: nl pulses, regular rate and rhythm, systolic murmur Gastrointestinal: non-tender, soft Genitourinary - Male: nl penis Musculoskeletal: nl extremities to inspection Extremities: normal pulses Neurological: FENDER FINISHER II-XII intact Skin: nl turgor, left big toe ulcer. Results Result Diagram: 12/13/1630 12/13/16629 Results 24 hrs Laboratory Tests Test 12/12/16 12:05 12/12/16 13:00 12/12/16 14:00 12/12/16 15:26 Bedside Glucose 181 185 Urine Eosinophils % 0.0 Urine Random Creatinine 91.32 Urine Random Sodium 93 H Urine Protein/Creatinine Ratio > 6.57 Urine Total Protein > 600.0 H Activated Partial Thromboplast Time 53.8 H Test 12/12/16 17:29 12/12/16 20:42 12/12/16 22:40 12/13/16 01:16 Bedside Glucose 227 H 198 187 Activated Partial Thromboplast Time 78.5 *H Test 12/13/16 06:23 12/13/16 06:30 12/13/16 09:48 Blood Gas Specimen Source Blood arterial Blood arterial Arterial Blood Date Drawn 12/13/2016 6:25:51 AM 12/13/2016 10:05:09 AM Arterial Blood pH (Temp corrected) 7.081 *L 7.365 Arterial Blood pCO2 (Temp correct) 84.3 *H 37.5 Arterial Blood pO2 (Temp corrected) 54.5 *L 374.0 H Arterial Blood HCO3 24.5 20.9 L Arterial Blood Base Excess -6.7 L -4.0 L Arterial Blood Oxygen Saturation 76.7 L 99.5 H Derek Test ACCEPTAB ACCEPTAB Arterial Blood Gas Puncture Site Right Radial Right Radial Arterial Blood Carboxyhemoglobin 0.3 0.3 Arterial Blood Methemoglobin 0.4 0.4 Blood Gas A-a O2 Differential 574.2 H 301.5 H Oxyhemoglobin Percent 76.2 L 98.8 Total Hemoglobin 11.3 L 8.9 L Blood Gas Temperature 37.0 37.0 Blood Gas Modality MASK - NRB VENT - AC FiO2 100.0 100.0 Blood Gas Critical Value Read Back 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[employer] PUBLICATIONS Blood Gas Notified Whom LW DONN Blood Gas Notified Time 12/13/2016 6:33:44 AM 12/13/2016 10:30:58 AM Bedside Glucose 239 H White Blood Count 20.5 #H Red Blood Count 3.22 L Hemoglobin 10.2 L Hematocrit 32.3 L Mean Corpuscular Volume 100.3 Mean Corpuscular Hemoglobin 31.7 Mean Corpuscular Hemoglobin Concent 31.6 L Red Cell Distribution Width 12.7 Platelet Count 239 # Mean Platelet Volume 10.8 H Neutrophils % 85.5 H Lymphocytes % 5.6 L Monocytes % 7.9 Eosinophils % 0.0 Basophils % 0.1 Nucleated Red Blood Cells % 0.0 Neutrophils # 17.5 H Lymphocytes # 1.1 Monocytes # 1.6 H Eosinophils # 0.0 Basophils # 0.0 Nucleated Red Blood Cells # 0.0 Differential Comment AUTO w/SCAN Activated Partial Thromboplast Time 73.4 *H Sodium Level 133 L Potassium Level 5.9 H Chloride Level 98 Carbon Dioxide Level 21 Anion Gap 20 H Blood Urea Nitrogen 37 H Creatinine 8.04 H Glucose Level 246 H Calcium Level 8.1 L Creatine Kinase 26 Creatine Kinase Index 9.9 Creatinine Kinase MB (Mass) 2.57 H Troponin I 0.679 *H Blood Gas Respiration Rate 18.0 Blood Gas Actual Respiration Rate 18 Blood Gas Tidal Volume 550.0 Blood Gas Low PEEP Setting 5.0 Medications Medications Current Medications Diagnostic Test (Pha) (Accu-Chek) 1 ea 02 XX Last administered on 12/13/16 01: 17; Admin Dose 1 EA; Start 12/03/16 at 02:00 Ondansetron HCl (Zofran Inj) 4 mg Q6H PRN IV NAUSEA AND/OR VOMITING Last administered on 12/13/16 01:13; Admin Dose 4 MG; Start 12/02/16 at 22:30 Miscellaneous Information 1 ea NOTE XX ; Start 12/02/16 at 23:00 Glucose (Glutose) 15 gm Q15M PRN PO DECREASED GLUCOSE; Start 12/02/16 at 23:00 Glucose (Glutose) 22.5 gm Q15M PRN PO DECREASED GLUCOSE; Start 12/02/16 at 23: 00 Dextrose (D50w Syringe) 25 ml Q15M PRN IV DECREASED GLUCOSE Last administered on 12/10/16 05:52; Admin Dose 25 ML; Start 12/02/16 at 23:00 Dextrose (D50w Syringe) 50 ml Q15M PRN IV DECREASED GLUCOSE; Start 12/02/16 at 23:00 Glucagon (Glucagen) 1 mg Q15M PRN IM DECREASED GLUCOSE; Start 12/02/16 at 23:00 Glucose (Glutose) 15 gm Q15M PRN BUCCAL DECREASED GLUCOSE; Start 12/02/16 at 23 :00 Aspirin (Halfprin) 81 mg DAILY PO Last administered on 12/13/16 08:41; Admin Dose 81 MG; Start 12/03/16 at 09:00 Gabapentin (Neurontin) 800 mg TID PO Last administered on 12/08/16 20:33; Admin Dose 800 MG; Start 12/03/16 at 09:00; Status Future Hold Meclizine HCl (Antivert) 25 mg TID PRN PO dizziness Last administered on 10:04; Admin Dose 25 MG; Start 12/02/16 at 23:00 Terazosin HCl (Hytrin) 5 mg HS PO Last administered on 12/07/16 20:28; Admin Dose 5 MG; Start 12/03/16 at 21:00; Status Future Hold Acetaminophen/ Hydrocodone Bitart ([place] (5/325)) 1 tab Q6H PRN PO PAIN LEVEL 4 -7 Last administered on 12/10/16 21:31; Admin Dose 1 TAB; Start 12/02/16 at 23: 30 Acetaminophen (Tylenol Tab) 650 mg Q6H PRN PO PAIN AND OR ELEVATED TEMP; Start 12/02/16 at 23:30 Docusate Sodium (Colace) 100 mg BID PO Last administered on 12/08/16 20:32; Admin Dose 100 MG; Start 12/03/16 at 09:00; Status Future Hold Pantoprazole (Protonix Tab) 40 mg DAILY@06 PO Last administered on 12/12/16 05 :47; Admin Dose 40 MG; Start 12/03/16 at 06:00 Zolpidem Tartrate (Ambien) 5 mg HS PRN PO INSOMNIA Last administered on 00:45; Admin Dose 5 MG; Start 12/02/16 at 23:30 Benazepril HCl (Lotensin) 10 mg DAILY PO Last administered on 12/07/16 08:26; Admin Dose 10 MG; Start 12/04/16 at 09:00; Status Future Hold Insulin Glargine 25 unit 25 unit DAILY SC Last administered on 12/13/16 08:47; Admin Dose 25 UNIT; Start 12/06/16 at 09:00 Sodium Chloride (1/2 NS) 1,000 ml @ 70 mls/hr [id number] IV Last administered on 12/13/16 00:20; Admin Dose 70 MLS/HR; Start 12/07/16 at 12:30 Collagenase (Santyl) 1 applic DAILY TOP Last administered on 12/13/16 08:42; Admin Dose 1 APPLIC; Start 12/07/16 at 16:00 Lorazepam (Ativan) 2 mg Q2 PRN IV AGITATION/ANXIETY Last administered on 03:32; Admin Dose 1 MG; Start 12/09/16 at 09:30 Morphine Sulfate (morphine) 2 mg Q2H PRN IV PAIN Last administered on 12/13/16 02:00; Admin Dose 2 MG; Start 12/09/16 at 09:30 Acetaminophen 650 mg 650 mg Q6H PRN [place] ELEVATED TEMPERATURE Last administered on 12/09/16 17:53; Admin Dose 650 MG; Start 12/09/16 at 17:00 Piperacillin Sod/ Tazobactam Sod (Zosyn 2.25gm/ 50ml (Pmx)) 50 ml @ 100 mls/hr Q12 IVPB Last administered on 12/13/16 08:41; Admin Dose 100 MLS/HR; Start at 21:00 Metoprolol Tartrate 5 mg 5 mg Q4H PRN IV HR>100 Last administered on 12/10/16 22:23; Admin Dose 5 MG; Start 12/09/16 at 17:48 Phenylephrine HCl/ Dextrose (Fernandez-Syneph/D5W) 500 ml @ 75 mls/hr TITRATE IV Last administered on 12/13/16 08:25; Admin Dose 15 MLS/HR; Start 12/09/16 at 22: 00 Amiodarone HCl (Cordarone) 200 mg BID PO Last administered on 12/13/16 08:41; Admin Dose 200 MG; Start 12/10/16 at 13:00 Hydralazine HCl (Apresoline) 10 mg Q6H PRN IV SBP>150mm hg ; Start 12/11/16 at 10:30 Metoprolol Tartrate (Lopressor) 25 mg BID PO Last administered on 12/12/16 20: 51; Admin Dose 25 MG; Start 12/11/16 at 21:00 Lidocaine (Xylocaine 1% (Mpf)) 5 ml ONCE SC ; Start 12/13/16 at 09:00; Stop at 12:00 Morphine Sulfate 2 mg 2 mg Q2H PRN IV PAIN LEVEL 4-7; Start 12/13/16 at 10:00 Propofol (Diprivan) 100 ml @ 2.544 mls/ hr Q12H IV Last administered on 10:51; Admin Dose 5.088 MLS/HR; Start 12/13/16 at 10:00 KIMBERLY NOYOLA December 13, 2016 11:37
--- NOTE | 2016-12-13 12:04 | CONS ---
Date/Time of Note Date/Time of Note DATE: 12/13/16 TIME: 11:50 Assessment/Plan Assessment/Plan Chief Complaint/Hosp Course assessment/impression - SIRS vs. early sepsis - hypoxic respiratory failure, intubated for the second time on 12/12/2016 - cardiopulmonary arrest on 12/09/2016 - diabetic infection of L 1st toe/foot. 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 and left fourth proximal phalanx - ARANZA, on HD from 12/09/2016 - A fib - troponin+ - DM - HTN recommendations: - repeat solorzano-cultures: wound culture, resp culture, urine culture and blood cultures from HD catheter, procalcitonin, lactic acid - continue renally dosed pip/tazo (12/03/2016) - add linezolid empirically (12/13/2016-) - will adjust antibiotics based on the results of above cultures - ultimately, Pt Pt needs 6 weeks of antibiotics to treat 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 and left fourth proximal phalanx: 2016 through 01/15/2017 management d/w Pt's RN, and Pt's via a [place] air box tester. All questions were answered. the critical care time I took to care for this Pt today was from 1100 to 1140 Problems: Consultation Date/Type/Reason Admit Date/Time Dec 02, 2016 at 21:01 Initial Consult Date 12/03/16 Type of Consultation: ID Referring Provider: VIET PARKER MD 24 HR Interval Summary Free Text/Dictation was intubated and transferred to ICU Subjective hx not possible: pt non-verbal, pt critical, pt critical status Exam/Review of Systems Vital Signs Vitals Vital Signs Date Time Temp Pulse Resp B/P Pulse Ox O2 Delivery O2 Flow Rate FiO2 12/13/16 11:15 62 18 108/62 100 12/13/16 11:00 Mechanical Ventilator 12/13/16 10:43 50 12/13/16 08:00 97.3 12/13/16 06:40 10.0 Intake and Output 12/12/16 12/12/16 12/13/16 15:00 23:00 07:00 Intake Total 128 ml 846 ml 1187 ml Output Total 30 ml 150 ml Balance 128 ml 816 ml 1037 ml Exam Constitutional: non-verbal Head: atraumatic, normocephalic Eyes: nl conjunctiva, nl lids ENMT: intubated, nl external ears & nose Respiratory: crackles/rales Cardiovascular: nl pulses, regular rate and rhythm Gastrointestinal: non-tender, soft Genitourinary - Male: other Extremities: No edema Neurological: other (sedated) Skin: rash or lesions (L 1st toe has eschar on the plantar aspect, no purulence , skin was mildly erythematous) Results Result Diagram: 12/13/1630 12/13/1630 Results 24 hrs Laboratory Tests Test 12/12/16 12:05 12/12/16 13:00 12/12/16 14:00 12/12/16 15:26 Bedside Glucose 181 185 Urine Eosinophils % 0.0 Urine Random Creatinine 91.32 Urine Random Sodium 93 H Urine Protein/Creatinine Ratio > 6.57 Urine Total Protein > 600.0 H Activated Partial Thromboplast Time 53.8 H Test 12/12/16 17:29 12/12/16 20:42 12/12/16 22:40 12/13/16 01:16 Bedside Glucose 227 H 198 187 Activated Partial Thromboplast Time 78.5 *H Test 12/13/16 06:23 12/13/16 06:30 12/13/16 09:48 Blood Gas Specimen Source Blood arterial Blood arterial Arterial Blood Date Drawn 12/13/2016 6:25:51 AM 12/13/2016 10:05:09 AM Arterial Blood pH (Temp corrected) 7.081 *L 7.365 Arterial Blood pCO2 (Temp correct) 84.3 *H 37.5 Arterial Blood pO2 (Temp corrected) 54.5 *L 374.0 H Arterial Blood HCO3 24.5 20.9 L Arterial Blood Base Excess -6.7 L -4.0 L Arterial Blood Oxygen Saturation 76.7 L 99.5 H Derek Test ACCEPTAB ACCEPTAB Arterial Blood Gas Puncture Site Right Radial Right Radial Arterial Blood Carboxyhemoglobin 0.3 0.3 Arterial Blood Methemoglobin 0.4 0.4 Blood Gas A-a O2 Differential 574.2 H 301.5 H Oxyhemoglobin Percent 76.2 L 98.8 Total Hemoglobin 11.3 L 8.9 L Blood Gas Temperature 37.0 37.0 Blood Gas Modality MASK - NRB VENT - AC FiO2 100.0 100.0 Blood Gas Critical Value Read Back 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 Blood Gas Notified Whom LW DONN Blood Gas Notified Time 12/13/2016 6:33:44 AM 12/13/2016 10:30:58 AM Bedside Glucose 239 H White Blood Count 20.5 #H Red Blood Count 3.22 L Hemoglobin 10.2 L Hematocrit 32.3 L Mean Corpuscular Volume 100.3 Mean Corpuscular Hemoglobin 31.7 Mean Corpuscular Hemoglobin Concent 31.6 L Red Cell Distribution Width 12.7 Platelet Count 239 # Mean Platelet Volume 10.8 H Neutrophils % 85.5 H Lymphocytes % 5.6 L Monocytes % 7.9 Eosinophils % 0.0 Basophils % 0.1 Nucleated Red Blood Cells % 0.0 Neutrophils # 17.5 H Lymphocytes # 1.1 Monocytes # 1.6 H Eosinophils # 0.0 Basophils # 0.0 Nucleated Red Blood Cells # 0.0 Differential Comment AUTO w/SCAN Activated Partial Thromboplast Time 73.4 *H Sodium Level 133 L Potassium Level 5.9 H Chloride Level 98 Carbon Dioxide Level 21 Anion Gap 20 H Blood Urea Nitrogen 37 H Creatinine 8.04 H Glucose Level 246 H Calcium Level 8.1 L Creatine Kinase 26 Creatine Kinase Index 9.9 Creatinine Kinase MB (Mass) 2.57 H Troponin I 0.679 *H Blood Gas Respiration Rate 18.0 Blood Gas Actual Respiration Rate 18 Blood Gas Tidal Volume 550.0 Blood Gas Low PEEP Setting 5.0 Medications Medications Current Medications Diagnostic Test (Pha) (Accu-Chek) 1 ea 02 XX Last administered on 12/13/16 01: 17; Admin Dose 1 EA; Start 12/03/16 at 02:00 Ondansetron HCl (Zofran Inj) 4 mg Q6H PRN IV NAUSEA AND/OR VOMITING Last administered on 12/13/16 01:13; Admin Dose 4 MG; Start 12/02/16 at 22:30 Miscellaneous Information 1 ea NOTE XX ; Start 12/02/16 at 23:00 Glucose (Glutose) 15 gm Q15M PRN PO DECREASED GLUCOSE; Start 12/02/16 at 23:00 Glucose (Glutose) 22.5 gm Q15M PRN PO DECREASED GLUCOSE; Start 12/02/16 at 23: 00 Dextrose (D50w Syringe) 25 ml Q15M PRN IV DECREASED GLUCOSE Last administered on 12/10/16 05:52; Admin Dose 25 ML; Start 12/02/16 at 23:00 Dextrose (D50w Syringe) 50 ml Q15M PRN IV DECREASED GLUCOSE; Start 12/02/16 at 23:00 Glucagon (Glucagen) 1 mg Q15M PRN IM DECREASED GLUCOSE; Start 12/02/16 at 23:00 Glucose (Glutose) 15 gm Q15M PRN BUCCAL DECREASED GLUCOSE; Start 12/02/16 at 23 :00 Aspirin (Halfprin) 81 mg DAILY PO Last administered on 12/13/16 08:41; Admin Dose 81 MG; Start 12/03/16 at 09:00 Gabapentin (Neurontin) 800 mg TID PO Last administered on 12/08/16 20:33; Admin Dose 800 MG; Start 12/03/16 at 09:00; Status Future Hold Meclizine HCl (Antivert) 25 mg TID PRN PO dizziness Last administered on 10:04; Admin Dose 25 MG; Start 12/02/16 at 23:00 Terazosin HCl (Hytrin) 5 mg HS PO Last administered on 12/07/16 20:28; Admin Dose 5 MG; Start 12/03/16 at 21:00; Status Future Hold Acetaminophen/ Hydrocodone Bitart ([place] (5/325)) 1 tab Q6H PRN PO PAIN LEVEL 4 -7 Last administered on 12/10/16 21:31; Admin Dose 1 TAB; Start 12/02/16 at 23: 30 Acetaminophen (Tylenol Tab) 650 mg Q6H PRN PO PAIN AND OR ELEVATED TEMP; Start 12/02/16 at 23:30 Docusate Sodium (Colace) 100 mg BID PO Last administered on 12/08/16 20:32; Admin Dose 100 MG; Start 12/03/16 at 09:00; Status Future Hold Pantoprazole (Protonix Tab) 40 mg DAILY@06 PO Last administered on 12/12/16 05 :47; Admin Dose 40 MG; Start 12/03/16 at 06:00 Zolpidem Tartrate (Ambien) 5 mg HS PRN PO INSOMNIA Last administered on 00:45; Admin Dose 5 MG; Start 12/02/16 at 23:30 Benazepril HCl (Lotensin) 10 mg DAILY PO Last administered on 12/07/16 08:26; Admin Dose 10 MG; Start 12/04/16 at 09:00; Status Future Hold Insulin Glargine 25 unit 25 unit DAILY SC Last administered on 12/13/16 08:47; Admin Dose 25 UNIT; Start 12/06/16 at 09:00 Sodium Chloride (1/2 NS) 1,000 ml @ 70 mls/hr [id number] IV Last administered on 12/13/16 11:33; Admin Dose 70 MLS/HR; Start 12/07/16 at 12:30 Collagenase (Santyl) 1 applic DAILY TOP Last administered on 12/13/16 08:42; Admin Dose 1 APPLIC; Start 12/07/16 at 16:00 Lorazepam (Ativan) 2 mg Q2 PRN IV AGITATION/ANXIETY Last administered on 03:32; Admin Dose 1 MG; Start 12/09/16 at 09:30 Morphine Sulfate (morphine) 2 mg Q2H PRN IV PAIN Last administered on 12/13/16 02:00; Admin Dose 2 MG; Start 12/09/16 at 09:30 Acetaminophen 650 mg 650 mg Q6H PRN [place] ELEVATED TEMPERATURE Last administered on 12/09/16 17:53; Admin Dose 650 MG; Start 12/09/16 at 17:00 Piperacillin Sod/ Tazobactam Sod (Zosyn 2.25gm/ 50ml (Pmx)) 50 ml @ 100 mls/hr Q12 IVPB Last administered on 12/13/16 08:41; Admin Dose 100 MLS/HR; Start at 21:00 Metoprolol Tartrate 5 mg 5 mg Q4H PRN IV HR>100 Last administered on 12/10/16 22:23; Admin Dose 5 MG; Start 12/09/16 at 17:48 Phenylephrine HCl/ Dextrose (Fernandez-Syneph/D5W) 500 ml @ 75 mls/hr TITRATE IV Last administered on 12/13/16 08:25; Admin Dose 15 MLS/HR; Start 12/09/16 at 22: 00 Amiodarone HCl (Cordarone) 200 mg BID PO Last administered on 12/13/16 08:41; Admin Dose 200 MG; Start 12/10/16 at 13:00 Hydralazine HCl (Apresoline) 10 mg Q6H PRN IV SBP>150mm hg ; Start 12/11/16 at 10:30 Metoprolol Tartrate (Lopressor) 25 mg BID PO Last administered on 12/12/16 20: 51; Admin Dose 25 MG; Start 12/11/16 at 21:00 Lidocaine (Xylocaine 1% (Mpf)) 5 ml ONCE SC ; Start 12/13/16 at 09:00; Stop at 12:00 Morphine Sulfate 2 mg 2 mg Q2H PRN IV PAIN LEVEL 4-7; Start 12/13/16 at 10:00 Propofol (Diprivan) 100 ml @ 2.544 mls/ hr Q12H IV Last administered on 10:51; Admin Dose 5.088 MLS/HR; Start 12/13/16 at 10:00 CHRISTY LOPEZ M.D. December 13, 2016 12:01
--- NOTE | 2016-12-13 12:23 | CONS ---
Date/Time of Note Date/Time of Note DATE: 12/13/16 TIME: 12:14 Assessment/Plan Assessment/Plan Chief Complaint/Hosp Course IMPRESSION: 1. Atrial fibrillation-currently in SR with PAC's 2. Hypotension-Recurrent now patient back on fernandez 3. Abnormal electrocardiogram with inferolateral T-wave inversions. 4. 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 Nonhealing toe ulceration. 6. Peripheral arterial disease by arterial ultrasound of the lower extremities this admission. 7. Diabetes mellitus. 8. Fevers. 9. Positive troponin-slowly downtrending Recc: -Tele -serial ecg -wean fernandez and follow BP closely -HD for volume removal -Trend cardiac enzymes -Continue asa -Continue heparin given now PAF/positive troponin -Continue PO amio in attempt to maintain SR -Continue low dose BB -Will consider LHC versus lexiscan when patient improved HD/stable Problems: Consultation Date/Type/Reason Admit Date/Time Dec 02, 2016 at 21:01 Initial Consult Date 12/03/16 Type of Consultation: Cardiology Reason for Consultation AF/positive troponin Referring Provider: VIET PARKER MD Exam/Review of Systems Vital Signs Vitals Vital Signs Date Time Temp Pulse Resp B/P Pulse Ox O2 Delivery O2 Flow Rate FiO2 12/13/16 12:00 97.6 63 18 100/58 100 Mechanical Ventilator 12/13/16 12:00 50 12/13/16 06:40 10.0 Intake and Output 12/12/16 12/12/16 12/13/16 14:59 22:59 06:59 Intake Total 112 ml 862 ml 1187 ml Output Total 30 ml 50 ml Balance 112 ml 832 ml 1137 ml Exam Review of Systems: CONSTITUTIONAL: No fevers, chills. PULMONARY: inubated CARDIOVASCULAR: No obvious chest pain/palpitations GASTROINTESTINAL: No nausea/vomiting. GENITOURINARY: No hematuria/dysuria. MUSCULOSKELETAL: No obvious myagias/arthalgias. PSYCHIATRIC: no docuemented depression. NEUROLOGIC: sedated Constitutional: other (intubated/sedated) Head: normocephalic Eyes: nl conjunctiva ENMT: nl external ears & nose Neck: jvd (9 cm water), supple Respiratory: diminished breath sounds (at bases/B) Cardiovascular: regular rate and rhythm Gastrointestinal: non-tender, soft Musculoskeletal: muscle tone (normal) Extremities: edema (trace/B) Neurological: other (sedated) Results Result Diagram: 12/13/16 0630 12/13/16 0630 Results 24 hrs Laboratory Tests Test 12/12/16 13:00 12/12/16 14:00 12/12/16 15:26 12/12/16 17:29 Urine Eosinophils % 0.0 Urine Random Creatinine 91.32 Urine Random Sodium 93 H Urine Protein/Creatinine Ratio > 6.57 Urine Total Protein > 600.0 H Activated Partial Thromboplast Time 53.8 H Bedside Glucose 185 227 H Test 12/12/16 20:42 12/12/16 22:40 12/13/16 01:16 12/13/16 06:23 Bedside Glucose 198 187 239 H Activated Partial Thromboplast Time 78.5 *H Blood Gas Specimen Source Blood arterial Arterial Blood Date Drawn 12/13/2016 6:25:51 AM Arterial Blood pH (Temp corrected) 7.081 *L Arterial Blood pCO2 (Temp correct) 84.3 *H Arterial Blood pO2 (Temp corrected) 54.5 *L Arterial Blood HCO3 24.5 Arterial Blood Base Excess -6.7 L Arterial Blood Oxygen Saturation 76.7 L Derke Test ACCEPTAB Arterial Blood Gas Puncture Site Right Radial Arterial Blood Carboxyhemoglobin 0.3 Arterial Blood Methemoglobin 0.4 Blood Gas A-a O2 Differential 574.2 H Oxyhemoglobin Percent 76.2 L Total Hemoglobin 11.3 L Blood Gas Temperature 37.0 Blood Gas Modality MASK - NRB FiO2 100.0 Blood Gas Critical Value Read Back [employer]PATCH[employer] PLATE AND WELD INSPECTOR Blood Gas Notified Whom LW Blood Gas Notified Time 12/13/2016 6:33:44 AM Test 12/13/16 06:30 12/13/16 09:48 12/13/16 11:32 White Blood Count 20.5 #H Red Blood Count 3.22 L Hemoglobin 10.2 L Hematocrit 32.3 L Mean Corpuscular Volume 100.3 Mean Corpuscular Hemoglobin 31.7 Mean Corpuscular Hemoglobin Concent 31.6 L Red Cell Distribution Width 12.7 Platelet Count 239 # Mean Platelet Volume 10.8 H Neutrophils % 85.5 H Lymphocytes % 5.6 L Monocytes % 7.9 Eosinophils % 0.0 Basophils % 0.1 Nucleated Red Blood Cells % 0.0 Neutrophils # 17.5 H Lymphocytes # 1.1 Monocytes # 1.6 H Eosinophils # 0.0 Basophils # 0.0 Nucleated Red Blood Cells # 0.0 Differential Comment AUTO w/SCAN Activated Partial Thromboplast Time 73.4 *H Sodium Level 133 L Potassium Level 5.9 H Chloride Level 98 Carbon Dioxide Level 21 Anion Gap 20 H Blood Urea Nitrogen 37 H Creatinine 8.04 H Glucose Level 246 H Calcium Level 8.1 L Creatine Kinase 26 Creatine Kinase Index 9.9 Creatinine Kinase MB (Mass) 2.57 H Troponin I 0.679 *H Blood Gas Specimen Source Blood arterial Arterial Blood Date Drawn 12/13/2016 10:05:09 AM Arterial Blood pH (Temp corrected) 7.365 Arterial Blood pCO2 (Temp correct) 37.5 Arterial Blood pO2 (Temp corrected) 374.0 H Arterial Blood HCO3 20.9 L Arterial Blood Base Excess -4.0 L Arterial Blood Oxygen Saturation 99.5 H Derek Test ACCEPTAB Arterial Blood Gas Puncture Site Right Radial Arterial Blood Carboxyhemoglobin 0.3 Arterial Blood Methemoglobin 0.4 Blood Gas A-a O2 Differential 301.5 H Oxyhemoglobin Percent 98.8 Total Hemoglobin 8.9 L Blood Gas Temperature 37.0 Blood Gas Respiration Rate 18.0 Blood Gas Actual Respiration Rate 18 Blood Gas Modality VENT - AC FiO2 100.0 Blood Gas Tidal Volume 550.0 Blood Gas Low PEEP Setting 5.0 Blood Gas Notified Whom JLD Blood Gas Notified Time 12/13/2016 10:30:58 AM Bedside Glucose 183 Medications Medications Current Medications Diagnostic Test (Pha) (Accu-Chek) 1 ea 02 XX Last administered on 12/13/16 01: 17; Admin Dose 1 EA; Start 12/03/16 at 02:00 Ondansetron HCl (Zofran Inj) 4 mg Q6H PRN IV NAUSEA AND/OR VOMITING Last administered on 12/13/16 01:13; Admin Dose 4 MG; Start 12/02/16 at 22:30 Miscellaneous Information 1 ea NOTE XX ; Start 12/02/16 at 23:00 Glucose (Glutose) 15 gm Q15M PRN PO DECREASED GLUCOSE; Start 12/02/16 at 23:00 Glucose (Glutose) 22.5 gm Q15M PRN PO DECREASED GLUCOSE; Start 12/02/16 at 23: 00 Dextrose (D50w Syringe) 25 ml Q15M PRN IV DECREASED GLUCOSE Last administered on 12/10/16 05:52; Admin Dose 25 ML; Start 12/02/16 at 23:00 Dextrose (D50w Syringe) 50 ml Q15M PRN IV DECREASED GLUCOSE; Start 12/02/16 at 23:00 Glucagon (Glucagen) 1 mg Q15M PRN IM DECREASED GLUCOSE; Start 12/02/16 at 23:00 Glucose (Glutose) 15 gm Q15M PRN BUCCAL DECREASED GLUCOSE; Start 12/02/16 at 23 :00 Aspirin (Halfprin) 81 mg DAILY PO Last administered on 12/13/16 08:41; Admin Dose 81 MG; Start 12/03/16 at 09:00 Gabapentin (Neurontin) 800 mg TID PO Last administered on 12/08/16 20:33; Admin Dose 800 MG; Start 12/03/16 at 09:00; Status Future Hold Meclizine HCl (Antivert) 25 mg TID PRN PO dizziness Last administered on 10:04; Admin Dose 25 MG; Start 12/02/16 at 23:00 Terazosin HCl (Hytrin) 5 mg HS PO Last administered on 12/07/16 20:28; Admin Dose 5 MG; Start 12/03/16 at 21:00; Status Future Hold Acetaminophen/ Hydrocodone Bitart ([place] (5/325)) 1 tab Q6H PRN PO PAIN LEVEL 4 -7 Last administered on 12/10/16 21:31; Admin Dose 1 TAB; Start 12/02/16 at 23: 30 Acetaminophen (Tylenol Tab) 650 mg Q6H PRN PO PAIN AND OR ELEVATED TEMP; Start 12/02/16 at 23:30 Docusate Sodium (Colace) 100 mg BID PO Last administered on 12/08/16 20:32; Admin Dose 100 MG; Start 12/03/16 at 09:00; Status Future Hold Pantoprazole (Protonix Tab) 40 mg DAILY@06 PO Last administered on 12/12/16 05 :47; Admin Dose 40 MG; Start 12/03/16 at 06:00 Zolpidem Tartrate (Ambien) 5 mg HS PRN PO INSOMNIA Last administered on 00:45; Admin Dose 5 MG; Start 12/02/16 at 23:30 Benazepril HCl (Lotensin) 10 mg DAILY PO Last administered on 12/07/16 08:26; Admin Dose 10 MG; Start 12/04/16 at 09:00; Status Future Hold Insulin Glargine 25 unit 25 unit DAILY SC Last administered on 12/13/16 08:47; Admin Dose 25 UNIT; Start 12/06/16 at 09:00 Sodium Chloride (1/2 NS) 1,000 ml @ 70 mls/hr [id number] IV Last administered on 12/13/16 11:33; Admin Dose 70 MLS/HR; Start 12/07/16 at 12:30 Collagenase (Santyl) 1 applic DAILY TOP Last administered on 12/13/16 08:42; Admin Dose 1 APPLIC; Start 12/07/16 at 16:00 Lorazepam (Ativan) 2 mg Q2 PRN IV AGITATION/ANXIETY Last administered on 03:32; Admin Dose 1 MG; Start 12/09/16 at 09:30 Morphine Sulfate (morphine) 2 mg Q2H PRN IV PAIN Last administered on 12/13/16 02:00; Admin Dose 2 MG; Start 12/09/16 at 09:30 Acetaminophen 650 mg 650 mg Q6H PRN MT ELEVATED TEMPERATURE Last administered on 12/09/16 17:53; Admin Dose 650 MG; Start 12/09/16 at 17:00 Piperacillin Sod/ Tazobactam Sod (Zosyn 2.25gm/ 50ml (Pmx)) 50 ml @ 100 mls/hr Q12 IVPB Last administered on 12/13/16 08:41; Admin Dose 100 MLS/HR; Start at 21:00 Metoprolol Tartrate 5 mg 5 mg Q4H PRN IV HR>100 Last administered on 12/10/16 22:23; Admin Dose 5 MG; Start 12/09/16 at 17:48 Phenylephrine HCl/ Dextrose (Fernandez-Syneph/D5W) 500 ml @ 75 mls/hr TITRATE IV Last administered on 12/13/16 08:25; Admin Dose 15 MLS/HR; Start 12/09/16 at 22: 00 Amiodarone HCl (Cordarone) 200 mg BID PO Last administered on 12/13/16 08:41; Admin Dose 200 MG; Start 12/10/16 at 13:00 Hydralazine HCl (Apresoline) 10 mg Q6H PRN IV SBP>150mm hg ; Start 12/11/16 at 10:30 Metoprolol Tartrate (Lopressor) 25 mg BID PO Last administered on 12/12/16 20: 51; Admin Dose 25 MG; Start 12/11/16 at 21:00 Morphine Sulfate 2 mg 2 mg Q2H PRN IV PAIN LEVEL 4-7; Start 12/13/16 at 10:00 Propofol 100 ml @ 2.544 mls/ hr Q12H IV Last administered on 12/13/16 10:51; Admin Dose 5.088 MLS/HR; Start 12/13/16 at 10:00 Linezolid (Zyvox 600mg/D5W (Pmx)) 300 ml @ 300 mls/hr Q12 IVPB ; Start 12/13/16 at 12:30; Status UNV VICENTE LESLIE December 13, 2016 12:23
[2016-12-13] MEDS: LINEZOLID 600 MG/D5W (PMX) 300 ML IVPB SCH ×2 (12:41→21:35)
--- NOTE | 2016-12-13 17:20 | RADRPT ---
PROCEDURE: Ultrasound guidance for placement of needle in left upper extremity vein. CLINICAL INDICATION: Venous access. TECHNIQUE: Limited sonography of the left upper extremity was performed. Ultrasound images were recorded and s tored in the patient's medical record. COMPARISON: None. FINDINGS: The ultrasound images demonstrate a patent left upper extremity vein. The PICC line was inserted by the PICC line nurse. IMPRESSION: 1. Ultrasound guidance for a needle placement in a left upper extremity vein. 2. The left upper extremity vein is patent. RPTAT: QQ .Bruce Zurita MD, MD Date Time Electronically viewed and signed by .Bruce Zurita MD, MD on 12/13/2016 17:20 .R/
[2016-12-13] MEDS ORDERED: SOD CHLORIDE 0.9% 100 ML ONE (17:22)
--- NOTE | 2016-12-13 17:26 | RADRPT ---
PROCEDURE: XR Chest. CLINICAL INDICATION: Check PICC line position. TECHNIQUE: Single frontal view. COMPARISON: 12/13/2016. FINDINGS: There is a left arm PICC line with the tip in the upper right atrium. There is air space disease bi laterally consistent with pulmonary edema or bilateral pneumonia. Right is worse than left. There is no change from the prior study from earlier the same day. The heart is mildly enlarged. There is calcification in the aorta consistent with atherosclerosis. The endotracheal tube and nasogastric tube remain in satisfactory position. There are moderate bilateral pleural effusions with right worse than left. There is no pneumothorax. IMPRESSION: 1. Right arm PICC line tip in the upper right atrium. 2. No other change from the prior study done earlier the same day. RPTAT: QQ .Bruce Zurita MD, MD Date Time Electronically viewed and signed by .Bruce Zurita MD, MD on 12/13/2016 17:26 .R/
--- NOTE | 2016-12-13 17:27 | RADRPT ---
PROCEDURE: XR Chest. CLINICAL INDICATION: Check PICC line position. TECHNIQUE: Single frontal view. COMPARISON: 12/13/2016. 1616 hours. FINDINGS: There is a left arm PICC line with the tip in the lower superior vena cava. The bilateral pleural e ffusions and pulmonary air space disease is unchanged. The heart is enlarged. There is calcificati on in the aorta consistent with atherosclerosis. There is an old healed right clavicle fracture. IMPRESSION: 1. Satisfactory position of left arm PICC line. 2. No other change from the prior study done earlier the same day. RPTAT: QQ .Bruce Zurita MD, MD Date Time Electronically viewed and signed by .Bruce Zurita MD, MD on 12/13/2016 17:27 .R/
--- NOTE | 2016-12-13 22:36 | RADRPT ---
PROCEDURE: CT Brain without contrast. CLINICAL INDICATION: Unarousable and altered mental status TECHNIQUE: A CT of the brain was performed on a GE [employer] Breezepeed 64-slice CT scanner utilizing axial imaging from the skull base through the vertex without IV contrast. Multiplanar reformatted images were made. Images were reviewed on a PACS workstation. The CTDIvol is 43.38 mGy and the DLP is 720 .23 mGycm. One of the following 3 dose reduction techniques were used: Automated exposure control; adjustment of the mA and/or kV according to patient size; or use of iterative reconstruction technique. COMPARISON: 11/24/2014 CT brain FINDINGS: There is no intracranial hemorrhage, mass effect, or midline shift. No extra-axial fluid collection is seen. The ventricles and sulci are age appropriate. Mild diffuse volume loss is present. A wedg e-shaped area of decreased attenuation is present in the right occipital lobe compatible with an acu te to subacute non hemorrhagic infarct. Recommend CTA or MRI and MRA further evaluate. Subtle decre ased attenuation is present in the bilateral subcortical white matter, bilateral centrum semiovale a nd bilateral periventricular white matter compatible with mild chronic microvascular ischemic diseas e. The visualized scalp and calvarium are normal. The bilateral orbits are normal. The bilateral para nasal sinuses are clear. The right mastoid air cells and middle ear cavity are clear. Small left m astoid and middle ear air fluid levels are noted. IMPRESSION: 1. Acute to subacute right occipital lobe ischemic infarct 2. No evidence for acute hemorrhage, hydrocephalus or herniation. 3. Mild chronic microvascular ischemic disease and diffuse volume loss. 4. Moderate atherosclerotic vascular disease of the bilateral intracranial internal carotid arterie s and the vertebral arteries. A call report was made to Dr. Morrow at 12/13/2016 10:30:29 PM following the completion of the examin ation by the undersigned. RPTAT: HDC .Suzanne Browne MD, Date Time Electronically viewed and signed by .Suzanne Browne MD, on 12/13/2016 22:36 .C/
[2016-12-13 23:03] LABS: ADD UMIC YES; UR BILIRUBIN (Dip) NEGATIVE (NEGATIVE); UR BLOOD (Dip) 3+ (NEGATIVE); UR CLARITY CLOUDY (CLEAR); UR COLOR LT. YELLOW (YELLOW); UR GLUCOSE (Dip) NEGATIVE (NEGATIVE); UR KETONES (Dip) NEGATIVE (NEGATIVE); UR LEUKOCYTE ESTERASE (Dip) 1+ (NEGATIVE); UR NITRITE (Dip) NEGATIVE (NEGATIVE); UR TOTAL PROTEIN (Dip) 4+ (NEGATIVE); UR UROBILINOGEN (Dip) 0.2 E.U./dL (0.1-1.0)
[2016-12-13 23:17] LABS: UR AMORPHOUS CRYSTAL MANY; UR BACTERIA MODERATE; URINE RBCS >50 /HPF (0)
[2016-12-14] VITALS (94 sets, daily range): BP systolic 84–191; BP diastolic 40–87; PULSE 58–93; RESP 14–38
[2016-12-14] MEDS: SOD CHLORIDE 0.45% 1,000 ML IV SCH (00:51)
[2016-12-14] MEDS: HEPARIN 25000 UNITS/250 ML 250 ML IV SCH ×2 (00:54→18:53)
[2016-12-14] MEDS: ACCU-CHEK XX SCH (00:55)
[2016-12-14] MEDS: PROPOFOL 100 ML IV SCH ×2 (05:04→18:52)
[2016-12-14] MEDS: PANTOPRAZOLE (EC) 40 MG TAB PO SCH (06:10)
[2016-12-14 07:01] LABS: ADD SCAN DIFF NO
[2016-12-14 07:14] LABS: BASOPHIL # 0.1 10^3/ul (0.0-0.1); BASOPHILS % 0.6 % (0.0-2.0); EOSINOPHILS # 0.1 10^3/ul (0.0-0.5); EOSINOPHILS % 0.8 % (0.0-7.0); HEMATOCRIT 26.3 % (42.0-52.0); HEMOGLOBIN 8.6 g/dl (14.0-18.0); LYMPHOCYTES # 1.1 10^3/ul (0.8-2.9); LYMPHOCYTES % 12.5 % (15.0-51.0); MEAN CORPUSCULAR HEMOGLOBIN 31.4 pg (29.0-33.0); MEAN CORPUSCULAR HGB CONC 32.7 g/dl (32.0-37.0); MEAN PLATELET VOLUME 10.5 fl (7.4-10.4); MONOCYTES % 11.9 % (0.0-11.0); NEUTROPHIL # 6.3 10^3/ul (1.6-7.5); NEUTROPHILS % 73.6 % (39.0-77.0); PLATELET COUNT 206 10^3/UL (140-415); RED BLOOD COUNT 2.74 10^6/ul (4.70-6.10); RED CELL DISTRIBUTION WIDTH 12.8 % (11.5-14.5); WHITE BLOOD COUNT 8.6 10^3/ul (4.8-10.8)
[2016-12-14 07:28] LABS: CALCIUM 7.4 mg/dl (8.4-10.2); CREATININE 6.42 mg/dl (0.61-1.24); PHOSPHORUS 6.4 mg/dl (2.5-4.9); POTASSIUM 3.4 mmol/L (3.5-5.1)
[2016-12-14] MEDS: INSULIN ASPART [NOVOLOG] 3 ML PEN SC SCH ×6 (07:34→21:21)
[2016-12-14 08:08] LABS: AADO2 Arterial 122.9 mmHg (7.0-24.0); Allen Test ACCEPTAB; Arterial Base Excess 0.1 mmol/L (-3.0-3); Arterial COHb 0.3 % (0.0-3.0); Arterial Fraction of Oxyhgb 95.7 % (93.0-99.0); Arterial HCO3 23.6 mmol/L (22.0-26.0); Arterial MetHb 0.3 % (0.0-1.5); Arterial Total Hemglobin 9.9 g/dl (12.0-18.0); MODE VENT - AC
[2016-12-14] MEDS: INSULIN GLARGINE [LANtus] 3 ML PEN SC SCH ×2 (09:00→09:49)
--- NOTE | 2016-12-14 09:27 | CONS ---
Date/Time of Note Date/Time of Note DATE: 12/14/16 TIME: 09:25 Consult Date/Type/Reason Admit Date/Time Dec 02, 2016 at 21:01 Initial Consult Date 12/03/16 Type of Consultation: pulmonary ICU Ordering Provider: VIET PARKER MD Subjective Patient awake alert on mechanical ventilation follows simple commands Objective Vital Signs Date Time Temp Pulse Resp B/P Pulse Ox O2 Delivery O2 Flow Rate FiO2 12/14/16 08:00 64 12/14/16 07:00 18 105/56 96 Mechanical Ventilator 12/14/16 05:05 35 12/14/16 04:00 98.8 12/13/16 06:40 10.0 Intake and Output 12/13/16 12/13/16 12/14/16 15:00 23:00 07:00 Intake Total 1728.584 ml 1463.348 ml 909.088 ml Output Total 3800 ml 5 ml 0 ml Balance -2071.416 ml 1458.348 ml 909.088 ml Exam PHYSICAL EXAMINATION: GENERAL: Elderly Thai gentleman, intubated on mechanical ventilation, appears comfortable at rest, no acute distress. VITAL SIGNS: As above NECK: Supple. No JVD or lymphadenopathy. CARDIAC: S1, S2, no added sounds or murmurs. CHEST: Diminished air entry bilaterally. ABDOMEN: Soft, nontender. No guarding or rebound. EXTREMITIES: No cyanosis, clubbing, edema. NEUROLOGIC: Generalized weakness, but no focal deficits. Results/Medications Result Diagram: 12/14/16 0600 12/14/16 0600 Results 24 hrs Chest x-ray Significant pulmonary edema possible pleural effusions Laboratory Tests Test 12/13/16 09:48 12/13/16 11:32 12/13/16 12:00 12/13/16 16:30 Blood Gas Specimen Source Blood arterial Arterial Blood Date Drawn 12/13/2016 10:05:09 AM Arterial Blood pH (Temp corrected) 7.365 Arterial Blood pCO2 (Temp correct) 37.5 Arterial Blood pO2 (Temp corrected) 374.0 H Arterial Blood HCO3 20.9 L Arterial Blood Base Excess -4.0 L Arterial Blood Oxygen Saturation 99.5 H Derek Test ACCEPTAB Arterial Blood Gas Puncture Site Right Radial Arterial Blood Carboxyhemoglobin 0.3 Arterial Blood Methemoglobin 0.4 Blood Gas A-a O2 Differential 301.5 H Oxyhemoglobin Percent 98.8 Total Hemoglobin 8.9 L Blood Gas Temperature 37.0 Blood Gas Respiration Rate 18.0 Blood Gas Actual Respiration Rate 18 Blood Gas Modality VENT - AC FiO2 100.0 Blood Gas Tidal Volume 550.0 Blood Gas Low PEEP Setting 5.0 Blood Gas Notified Whom JLD Blood Gas Notified Time 12/13/2016 10:30:58 AM Bedside Glucose 183 Activated Partial Thromboplast Time 68.6 H Lactic Acid Level 1.2 Test 12/13/16 17:07 12/13/16 18:27 12/13/16 21:06 12/13/16 22:30 Bedside Glucose 126 86 Activated Partial Thromboplast Time 67.2 H Urine Color LT. YELLOW Urine Clarity CLOUDY H Urine pH 6.5 Urine Specific Larose 1.020 Urine Ketones NEGATIVE Urine Nitrite NEGATIVE Urine Bilirubin NEGATIVE Urine Urobilinogen 0.2 E.U./dL Urine Leukocyte Esterase 1+ H Urine Microscopic RBC >50 Urine Microscopic WBC 5-10 Urine Amorphous Urates MANY Urine Bacteria MODERATE Urine Yeast MODERATE Urine Hemoglobin 3+ H Urine Glucose NEGATIVE Urine Total Protein 4+ H Test 12/14/16 04:50 12/14/16 06:00 12/14/16 07:00 Bedside Glucose 81 White Blood Count 8.6 # Red Blood Count 2.74 L Hemoglobin 8.6 L Hematocrit 26.3 L Mean Corpuscular Volume 96.0 Mean Corpuscular Hemoglobin 31.4 Mean Corpuscular Hemoglobin Concent 32.7 Red Cell Distribution Width 12.8 Platelet Count 206 Mean Platelet Volume 10.5 H Neutrophils % 73.6 Lymphocytes % 12.5 L Monocytes % 11.9 H Eosinophils % 0.8 Basophils % 0.6 Nucleated Red Blood Cells % 0.0 Neutrophils # 6.3 Lymphocytes # 1.1 Monocytes # 1.0 H Eosinophils # 0.1 Basophils # 0.1 Nucleated Red Blood Cells # 0.0 Activated Partial Thromboplast Time 77.1 *H Sodium Level 132 L Potassium Level 3.4 #L Chloride Level 97 Carbon Dioxide Level 24 Anion Gap 14 Blood Urea Nitrogen 30 H Creatinine 6.42 H Glucose Level 83 # Calcium Level 7.4 L Phosphorus Level 6.4 H Magnesium Level 2.0 Blood Gas Specimen Source Blood arterial Arterial Blood Date Drawn 12/14/2016 7:20:04 AM Arterial Blood pH (Temp corrected) 7.462 H Arterial Blood pCO2 (Temp correct) 33.8 L Arterial Blood pO2 (Temp corrected) 87.4 Arterial Blood HCO3 23.6 Arterial Blood Base Excess 0.1 Arterial Blood Oxygen Saturation 96.3 Derek Test ACCEPTAB Arterial Blood Gas Puncture Site Right Radial Arterial Blood Carboxyhemoglobin 0.3 Arterial Blood Methemoglobin 0.3 Blood Gas A-a O2 Differential 122.9 H Oxyhemoglobin Percent 95.7 Total Hemoglobin 9.9 L Blood Gas Temperature 37.0 Blood Gas Respiration Rate 18.0 Blood Gas Actual Respiration Rate 18 Blood Gas Modality VENT - AC FiO2 35.0 Blood Gas Tidal Volume 550.0 Blood Gas Low PEEP Setting 5.0 Blood Gas Notified Whom JLD Blood Gas Notified Time 12/14/2016 8:08:49 AM Medications Current Medications Diagnostic Test (Pha) (Accu-Chek) 1 ea 02 XX Last administered on 12/13/16 01: 17; Admin Dose 1 EA; Start 12/03/16 at 02:00 Ondansetron HCl (Zofran Inj) 4 mg Q6H PRN IV NAUSEA AND/OR VOMITING Last administered on 12/13/16 01:13; Admin Dose 4 MG; Start 12/02/16 at 22:30 Miscellaneous Information 1 ea NOTE XX ; Start 12/02/16 at 23:00 Glucose (Glutose) 15 gm Q15M PRN PO DECREASED GLUCOSE; Start 12/02/16 at 23:00 Glucose (Glutose) 22.5 gm Q15M PRN PO DECREASED GLUCOSE; Start 12/02/16 at 23: 00 Dextrose (D50w Syringe) 25 ml Q15M PRN IV DECREASED GLUCOSE Last administered on 12/10/16 05:52; Admin Dose 25 ML; Start 12/02/16 at 23:00 Dextrose (D50w Syringe) 50 ml Q15M PRN IV DECREASED GLUCOSE; Start 12/02/16 at 23:00 Glucagon (Glucagen) 1 mg Q15M PRN IM DECREASED GLUCOSE; Start 12/02/16 at 23:00 Glucose (Glutose) 15 gm Q15M PRN BUCCAL DECREASED GLUCOSE; Start 12/02/16 at 23 :00 Aspirin (Halfprin) 81 mg DAILY PO Last administered on 12/13/16 08:41; Admin Dose 81 MG; Start 12/03/16 at 09:00 Gabapentin (Neurontin) 800 mg TID PO Last administered on 12/08/16 20:33; Admin Dose 800 MG; Start 12/03/16 at 09:00; Status Future Hold Meclizine HCl (Antivert) 25 mg TID PRN PO dizziness Last administered on 10:04; Admin Dose 25 MG; Start 12/02/16 at 23:00 Terazosin HCl (Hytrin) 5 mg HS PO Last administered on 12/07/16 20:28; Admin Dose 5 MG; Start 12/03/16 at 21:00; Status Future Hold Acetaminophen/ Hydrocodone Bitart ([place] (5/325)) 1 tab Q6H PRN PO PAIN LEVEL 4 -7 Last administered on 12/10/16 21:31; Admin Dose 1 TAB; Start 12/02/16 at 23: 30 Acetaminophen (Tylenol Tab) 650 mg Q6H PRN PO PAIN AND OR ELEVATED TEMP; Start 12/02/16 at 23:30 Docusate Sodium (Colace) 100 mg BID PO Last administered on 12/08/16 20:32; Admin Dose 100 MG; Start 12/03/16 at 09:00; Status Future Hold Pantoprazole (Protonix Tab) 40 mg DAILY@06 PO Last administered on 12/14/16 06: 10; Admin Dose 40 MG; Start 12/03/16 at 06:00 Zolpidem Tartrate (Ambien) 5 mg HS PRN PO INSOMNIA Last administered on 00:45; Admin Dose 5 MG; Start 12/02/16 at 23:30 Benazepril HCl (Lotensin) 10 mg DAILY PO Last administered on 12/07/16 08:26; Admin Dose 10 MG; Start 12/04/16 at 09:00; Status Future Hold Insulin Glargine 25 unit 25 unit DAILY SC Last administered on 12/13/16 08:47; Admin Dose 25 UNIT; Start 12/06/16 at 09:00 Sodium Chloride (1/2 NS) 1,000 ml @ 70 mls/hr [id number] IV Last administered on 12/14/16 00:51; Admin Dose 70 MLS/HR; Start 12/07/16 at 12:30 Collagenase (Santyl) 1 applic DAILY TOP Last administered on 12/13/16 08:42; Admin Dose 1 APPLIC; Start 12/07/16 at 16:00 Lorazepam (Ativan) 2 mg Q2 PRN IV AGITATION/ANXIETY Last administered on 03:32; Admin Dose 1 MG; Start 12/09/16 at 09:30 Morphine Sulfate (morphine) 2 mg Q2H PRN IV PAIN Last administered on 12/13/16 02:00; Admin Dose 2 MG; Start 12/09/16 at 09:30 Acetaminophen 650 mg 650 mg Q6H PRN SC ELEVATED TEMPERATURE Last administered on 12/09/16 17:53; Admin Dose 650 MG; Start 12/09/16 at 17:00 Piperacillin Sod/ Tazobactam Sod (Zosyn 2.25gm/ 50ml (Pmx)) 50 ml @ 100 mls/hr Q12 IVPB Last administered on 12/13/16 20:49; Admin Dose 100 MLS/HR; Start at 21:00 Metoprolol Tartrate 5 mg 5 mg Q4H PRN IV HR>100 Last administered on 12/10/16 22:23; Admin Dose 5 MG; Start 12/09/16 at 17:48 Phenylephrine HCl/ Dextrose (Fernandez-Syneph/D5W) 500 ml @ 75 mls/hr TITRATE IV Last administered on 12/13/16 15:21; Admin Dose 37.5 MLS/HR; Start 12/09/16 at 22:00 Amiodarone HCl (Cordarone) 200 mg BID PO Last administered on 12/13/16 20:49; Admin Dose 200 MG; Start 12/10/16 at 13:00 Hydralazine HCl (Apresoline) 10 mg Q6H PRN IV SBP>150mm hg ; Start 12/11/16 at 10:30 Metoprolol Tartrate (Lopressor) 25 mg BID PO Last administered on 12/12/16 20: 51; Admin Dose 25 MG; Start 12/11/16 at 21:00; Status Future Hold Morphine Sulfate 2 mg 2 mg Q2H PRN IV PAIN LEVEL 4-7; Start 12/13/16 at 10:00 Propofol 100 ml @ 2.544 mls/ hr Q12H IV Last administered on 12/14/16 05:04; Admin Dose 5.088 MLS/HR; Start 12/13/16 at 10:00 Linezolid (Zyvox 600mg/D5W (Pmx)) 300 ml @ 300 mls/hr Q12 IVPB Last administered on 12/13/16t 21:35; Admin Dose 300 MLS/HR; Start 12/13/16 at 13:00 Insulin Aspart (Novolog Insulin Pen) NOVOLOG *MODERATE* ALGORI... Q4 SC ; Start 12/14/16 at 09:00 Assessment/Plan Chief Complaint/Hosp Course IMPRESSION AND PLAN: 1. Acute kidney injury. On hemodialysis 2. Hypoxemic respiratory failure possibly secondary to aspiration pneumonia 3. Underlying pulmonary edema secondary to renal insufficiency with volume overload 4. Hypercapnic respiratory failure. 5. Diabetic foot ulcer 6. History of diabetes mellitus The patient will require 1. Continued mechanical ventilation. CPAP weaning trial following hemodialysis 2. Renal recommendations. Hemodialysis today per nephrology, aggressive volume removal if tolerated 3. Antibiotics for aspiration pneumonia, ID recommendations 4. DVT and GI prophylaxis. 5. Wound care per vascular surgery and podiatry Disposition Continue ICU care Critical care time 40 minutes Problems: AUDELIA BARRIENTOS MD, [facility] December 14, 2016 09:26
[2016-12-14] MEDS: ASPIRIN (EC) 81 MG TAB PO SCH (09:46)
[2016-12-14] MEDS: PIPER-TAZO 2.25 GM (PMX) 50 ML IVPB SCH ×2 (09:46→21:12)
[2016-12-14] MEDS: AMIODARONE 200 MG TAB PO SCH ×2 (09:46→21:24)
[2016-12-14] MEDS: LINEZOLID 600 MG/D5W (PMX) 300 ML IVPB SCH ×2 (09:46→21:12)
[2016-12-14] MEDS: COLLAGENASE 30 GM TUBE TOP SCH (09:47)
[2016-12-14] MEDS ORDERED: CASPOFUNGIN 70 MG in SOD CHLORIDE 0.9% 250 ML IVPB ONE (11:00)
--- NOTE | 2016-12-14 11:17 | CONS ---
Date/Time of Note Date/Time of Note DATE: 12/14/16 TIME: 11:10 Assessment/Plan Assessment/Plan Chief Complaint/Hosp Course assessment/impression - sepsis due to fungemia - fungemia from 12/09/2016 (peripheral) - hypoxic respiratory failure, intubated for the second time on 12/12/2016 - cardiopulmonary arrest on 12/09/2016 - acute to subacute R occipital lobe CVA - diabetic infection of L 1st toe/foot. 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 and left fourth proximal phalanx - ARANZA, on HD from 12/09/2016 - A fib - troponin+ - DM - HTN recommendations: - await speciation of yeast in his blood culture - await the results of blood cultures from 12/13/2016 (both from HD catheter), wound culture - I ordered resp culture on 12/13/2016. Not done yet. Re-ordered it - I recommend repeat transthoracic echo to r/o valvular vegetation (in light of fungemia) - start caspofungin (12/14/2016-) - continue renally dosed pip/tazo (12/03/2016) and linezolid empirically (2016-) for diabetic foot infection - if blood cultures on 12/13/2016 grows yeast, I recommend d/c HD catheter - I recommend holding off placement of long-term vascular catheters until fungemia clears - ultimately, Pt Pt needs 6 weeks of antibiotics to treat 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 and left fourth proximal phalanx: 2016 through 01/15/2017 management d/w Pt's RN, ELODIA Owen. I also spoke to Pt's son Larry by phone. All questions were answered. the critical care time I took to care for this Pt today was from 1010 to 1050 Problems: Consultation Date/Type/Reason Admit Date/Time Dec 02, 2016 at 21:01 Initial Consult Date 12/03/16 Type of Consultation: ID Referring Provider: VIET PARKER MD 24 HR Interval Summary Subjective hx not possible: pt non-verbal, pt critical, pt critical status, other (Pt shook his head when I asked him pain) Exam/Review of Systems Vital Signs Vitals Vital Signs Date Time Temp Pulse Resp B/P Pulse Ox O2 Delivery O2 Flow Rate FiO2 12/14/16 09:10 60 18 96 35 12/14/16 07:00 105/56 Mechanical Ventilator 12/14/16 04:00 98.8 12/13/16 06:40 10.0 Intake and Output 12/13/16 12/13/16 12/14/16 15:00 23:00 07:00 Intake Total 1728.584 ml 1463.348 ml 909.088 ml Output Total 3800 ml 5 ml 0 ml Balance -2071.416 ml 1458.348 ml 909.088 ml Exam Constitutional: non-verbal Head: atraumatic, normocephalic Eyes: nl conjunctiva, nl lids ENMT: intubated, nl external ears & nose, nl nasal mucosa & septum Cardiovascular: regular rate and rhythm Gastrointestinal: non-tender, soft Genitourinary - Male: other (FC) Musculoskeletal: nl extremities to inspection Extremities: No edema Neurological: lethargic (Pt shook his head when I asked him if he was in pain) Skin: laceration (L 1st toe with eschar is dressed) Results Result Diagram: 12/14/16 0600 12/14/16 0600 Results 24 hrs Laboratory Tests Test 12/13/16 11:32 12/13/16 12:00 12/13/16 16:30 12/13/16 17:07 Bedside Glucose 183 126 Activated Partial Thromboplast Time 68.6 H Lactic Acid Level 1.2 Test 12/13/16 18:27 12/13/16 21:06 12/13/16 22:30 12/14/16 04:50 Activated Partial Thromboplast Time 67.2 H Bedside Glucose 86 81 Urine Color LT. YELLOW Urine Clarity CLOUDY H Urine pH 6.5 Urine Specific [place] 1.020 Urine Ketones NEGATIVE Urine Nitrite NEGATIVE Urine Bilirubin NEGATIVE Urine Urobilinogen 0.2 E.U./dL Urine Leukocyte Esterase 1+ H Urine Microscopic RBC >50 Urine Microscopic WBC 5-10 Urine Amorphous Urates MANY Urine Bacteria MODERATE Urine Yeast MODERATE Urine Hemoglobin 3+ H Urine Glucose NEGATIVE Urine Total Protein 4+ H Test 12/14/16 06:00 12/14/16 07:00 12/14/16 09:50 White Blood Count 8.6 # Red Blood Count 2.74 L Hemoglobin 8.6 L Hematocrit 26.3 L Mean Corpuscular Volume 96.0 Mean Corpuscular Hemoglobin 31.4 Mean Corpuscular Hemoglobin Concent 32.7 Red Cell Distribution Width 12.8 Platelet Count 206 Mean Platelet Volume 10.5 H Neutrophils % 73.6 Lymphocytes % 12.5 L Monocytes % 11.9 H Eosinophils % 0.8 Basophils % 0.6 Nucleated Red Blood Cells % 0.0 Neutrophils # 6.3 Lymphocytes # 1.1 Monocytes # 1.0 H Eosinophils # 0.1 Basophils # 0.1 Nucleated Red Blood Cells # 0.0 Activated Partial Thromboplast Time 77.1 *H Sodium Level 132 L Potassium Level 3.4 #L Chloride Level 97 Carbon Dioxide Level 24 Anion Gap 14 Blood Urea Nitrogen 30 H Creatinine 6.42 H Glucose Level 83 # Calcium Level 7.4 L Phosphorus Level 6.4 H Magnesium Level 2.0 Blood Gas Specimen Source Blood arterial Arterial Blood Date Drawn 12/14/2016 7:20:04 AM Arterial Blood pH (Temp corrected) 7.462 H Arterial Blood pCO2 (Temp correct) 33.8 L Arterial Blood pO2 (Temp corrected) 87.4 Arterial Blood HCO3 23.6 Arterial Blood Base Excess 0.1 Arterial Blood Oxygen Saturation 96.3 Derek Test ACCEPTAB Arterial Blood Gas Puncture Site Right Radial Arterial Blood Carboxyhemoglobin 0.3 Arterial Blood Methemoglobin 0.3 Blood Gas A-a O2 Differential 122.9 H Oxyhemoglobin Percent 95.7 Total Hemoglobin 9.9 L Blood Gas Temperature 37.0 Blood Gas Respiration Rate 18.0 Blood Gas Actual Respiration Rate 18 Blood Gas Modality VENT - AC FiO2 35.0 Blood Gas Tidal Volume 550.0 Blood Gas Low PEEP Setting 5.0 Blood Gas Notified Whom JLD Blood Gas Notified Time 12/14/2016 8:08:49 AM Bedside Glucose 89 Medications Medications Current Medications Diagnostic Test (Pha) (Accu-Chek) 1 ea 02 XX Last administered on 12/13/16 01: 17; Admin Dose 1 EA; Start 12/03/16 at 02:00 Ondansetron HCl (Zofran Inj) 4 mg Q6H PRN IV NAUSEA AND/OR VOMITING Last administered on 12/13/16 01:13; Admin Dose 4 MG; Start 12/02/16 at 22:30 Miscellaneous Information 1 ea NOTE XX ; Start 12/02/16 at 23:00 Glucose (Glutose) 15 gm Q15M PRN PO DECREASED GLUCOSE; Start 12/02/16 at 23:00 Glucose (Glutose) 22.5 gm Q15M PRN PO DECREASED GLUCOSE; Start 12/02/16 at 23: 00 Dextrose (D50w Syringe) 25 ml Q15M PRN IV DECREASED GLUCOSE Last administered on 12/10/16 05:52; Admin Dose 25 ML; Start 12/02/16 at 23:00 Dextrose (D50w Syringe) 50 ml Q15M PRN IV DECREASED GLUCOSE; Start 12/02/16 at 23:00 Glucagon (Glucagen) 1 mg Q15M PRN IM DECREASED GLUCOSE; Start 12/02/16 at 23:00 Glucose (Glutose) 15 gm Q15M PRN BUCCAL DECREASED GLUCOSE; Start 12/02/16 at 23 :00 Aspirin (Halfprin) 81 mg DAILY PO Last administered on 12/14/16 09:46; Admin Dose 81 MG; Start 12/03/16 at 09:00 Gabapentin (Neurontin) 800 mg TID PO Last administered on 12/08/16 20:33; Admin Dose 800 MG; Start 12/03/16 at 09:00; Status Future Hold Meclizine HCl (Antivert) 25 mg TID PRN PO dizziness Last administered on 10:04; Admin Dose 25 MG; Start 12/02/16 at 23:00 Terazosin HCl (Hytrin) 5 mg HS PO Last administered on 12/07/16 20:28; Admin Dose 5 MG; Start 12/03/16 at 21:00; Status Future Hold Acetaminophen/ Hydrocodone Bitart ([place] (5/325)) 1 tab Q6H PRN PO PAIN LEVEL 4 -7 Last administered on 12/10/16 21:31; Admin Dose 1 TAB; Start 12/02/16 at 23: 30 Acetaminophen (Tylenol Tab) 650 mg Q6H PRN PO PAIN AND [place] ELEVATED TEMP; Start 12/02/16 at 23:30 Docusate Sodium (Colace) 100 mg BID PO Last administered on 12/08/16 20:32; Admin Dose 100 MG; Start 12/03/16 at 09:00; Status Future Hold Pantoprazole (Protonix Tab) 40 mg DAILY@06 PO Last administered on 12/14/16 06: 10; Admin Dose 40 MG; Start 12/03/16 at 06:00 Zolpidem Tartrate (Ambien) 5 mg HS PRN PO INSOMNIA Last administered on 00:45; Admin Dose 5 MG; Start 12/02/16 at 23:30 Benazepril HCl (Lotensin) 10 mg DAILY PO Last administered on 12/07/16 08:26; Admin Dose 10 MG; Start 12/04/16 at 09:00; Status Future Hold Insulin Glargine 25 unit 25 unit DAILY SC Last administered on 12/13/16 08:47; Admin Dose 25 UNIT; Start 12/06/16 at 09:00; Status Future Hold Sodium Chloride (1/2 NS) 1,000 ml @ 70 mls/hr [id number] IV Last administered on 12/14/16 00:51; Admin Dose 70 MLS/HR; Start 12/07/16 at 12:30 Collagenase (Santyl) 1 applic DAILY TOP Last administered on 12/14/16 09:47; Admin Dose 1 APPLIC; Start 12/07/16 at 16:00 Lorazepam (Ativan) 2 mg Q2 PRN IV AGITATION/ANXIETY Last administered on 03:32; Admin Dose 1 MG; Start 12/09/16 at 09:30 Morphine Sulfate (morphine) 2 mg Q2H PRN IV PAIN Last administered on 12/13/16 02:00; Admin Dose 2 MG; Start 12/09/16 at 09:30 Acetaminophen 650 mg 650 mg Q6H PRN [place] ELEVATED TEMPERATURE Last administered on 12/09/16 17:53; Admin Dose 650 MG; Start 12/09/16 at 17:00 Piperacillin Sod/ Tazobactam Sod (Zosyn 2.25gm/ 50ml (Pmx)) 50 ml @ 100 mls/hr Q12 IVPB Last administered on 12/14/16 09:46; Admin Dose 100 MLS/HR; Start at 21:00 Metoprolol Tartrate 5 mg 5 mg Q4H PRN IV HR>100 Last administered on 12/10/16 22:23; Admin Dose 5 MG; Start 12/09/16 at 17:48 Phenylephrine HCl/ Dextrose (Fernandez-Syneph/D5W) 500 ml @ 75 mls/hr TITRATE IV Last administered on 12/13/16 15:21; Admin Dose 37.5 MLS/HR; Start 12/09/16 at 22:00 Amiodarone HCl (Cordarone) 200 mg BID PO Last administered on 12/14/16 09:46; Admin Dose 200 MG; Start 12/10/16 at 13:00 Hydralazine HCl (Apresoline) 10 mg Q6H PRN IV SBP>150mm hg ; Start 12/11/16 at 10:30 Metoprolol Tartrate (Lopressor) 25 mg BID PO Last administered on 12/12/16 20: 51; Admin Dose 25 MG; Start 12/11/16 at 21:00; Status Future Hold Morphine Sulfate 2 mg 2 mg Q2H PRN IV PAIN LEVEL 4-7; Start 12/13/16 at 10:00 Propofol 100 ml @ 2.544 mls/ hr Q12H IV Last administered on 12/14/16 05:04; Admin Dose 5.088 MLS/HR; Start 12/13/16 at 10:00 Linezolid (Zyvox 600mg/D5W (Pmx)) 300 ml @ 300 mls/hr Q12 IVPB Last administered on 12/14/16 09:46; Admin Dose 300 MLS/HR; Start 12/13/16 at 13:00 Insulin Aspart NOVOLOG *MODERATE* ALGORI... Q4 SC ; Start 12/14/16 at 09:00 Caspofungin 50 mg/ Sodium Chloride 250 ml @ 250 mls/hr Q24H IVPB ; Start at 11:00 Caspofungin 70 mg/ Sodium Chloride 250 ml @ 250 mls/hr ONCE ONCE IVPB ; Start 12/14/16 at 11:00; Stop 12/14/16 at 11:59 Dextrose/Sodium Chloride (D5-1/2ns) 1,000 ml @ 70 mls/hr [id number] IV ; Start 12/14/16 at 11:30; Status CHRISTY HOLLINS M.D. December 14, 2016 11:17
--- NOTE | 2016-12-14 11:48 | PN ---
Date/Time of Note Date/Time of Note DATE: 12/14/16 TIME: 11:40 Assessment/Plan VTE Prophylaxis VTE Prophylaxis Intervention: SCD's Lines/Catheters IV Catheter Type (from Nrs): PICC Line Central line still needed: Yes Urinary Cath still in place: Yes Reason Cath still needed: urinary retention Assessment/Plan Chief Complaint/Hosp Course Assessment/Plan - Acute to subacute right occipital lobe ischemic infarct, Dr Morris is asked to see pt in neurology consultation. - Acute respiratory failure secondary to pulmonary edema, patient is currently intubated, on vent support. Dr. Alvarez is following from pulmonology standpoint. - Acute renal failure, Dr. Remy, nephrology consultation is appreciated. Continue hemodialysis per nephrology. - Paroxysmal atrial fibrillation and positive troponin. Continue heparin drip per protocol. Dr. Cobian is following and cardiology consultation. - Hypotension, continued on pressors for hemodynamic support. - Diabetic foot ulcer of the left foot, Dr Lin is following in podiatry consultation. - Fungemia, om Caspofungin. Dr. Pascual is following in infection disease consultation. - Cellulitis of left foot, 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 and left fourth proximal phalanx per bone scan, continue antibiotics, Continue antibiotics per ID. - IDDM, continue metformin and Lantus and pre-meal NovoLog. - Aortic stenosis - Diastolic dysfunction congestive heart failure with preserved ejection fraction of 60%. - DM, Hgb A1c is 8.7 Family conference per case management social worker arrangement. Further recommendations based on clinical course. Plan of care discussed with Dr. Heredia. Problems: Subjective 24 Hr Interval Summary Free Text/Dictation Patient is sedated on Propofol, awake, follows some commands, on Neosynephrine and Heparin gtts, undergoing HD. Exam/Review of Systems Vital Signs Vitals Vital Signs Date Time Temp Pulse Resp B/P Pulse Ox O2 Delivery O2 Flow Rate FiO2 12/14/16 11:15 65 16 129/54 100 Mechanical Ventilator 12/14/16 11:10 35 12/14/16 08:00 97.5 12/13/16 06:40 10.0 Intake and Output 12/13/16 12/13/16 12/14/16 15:00 23:00 07:00 Intake Total 1728.584 ml 1463.348 ml 909.088 ml Output Total 3800 ml 5 ml 0 ml Balance -2071.416 ml 1458.348 ml 909.088 ml Exam Constitutional: Sedated, orally intubated on vent support Psych: no complaints Head: atraumatic, normocephalic Eyes: nl conjunctiva ENMT: nl external ears & nose Neck: non-tender, supple Respiratory: clear to auscultation, normal air movement Cardiovascular: nl pulses, regular rate and rhythm, systolic murmur Gastrointestinal: non-tender, soft Genitourinary - Male: nl penis Musculoskeletal: nl extremities to inspection Extremities: normal pulses Neurological: PAPER INSPECTOR II-XII intact Skin: nl turgor, left big toe ulcer. Results Result Diagram: 12/14/16 0600 12/14/16 0600 Results 24 hrs Laboratory Tests Test 12/13/16 12:00 12/13/16 16:30 12/13/16 17:07 12/13/16 18:27 Activated Partial Thromboplast Time 68.6 H 67.2 H Lactic Acid Level 1.2 Bedside Glucose 126 Test 12/13/16 21:06 12/13/16 22:30 12/14/16 04:50 12/14/16 06:00 Bedside Glucose 86 81 Urine Color LT. YELLOW Urine Clarity CLOUDY H Urine pH 6.5 Urine Specific [place] 1.020 Urine Ketones NEGATIVE Urine Nitrite NEGATIVE Urine Bilirubin NEGATIVE Urine Urobilinogen 0.2 E.U./dL Urine Leukocyte Esterase 1+ H Urine Microscopic RBC >50 Urine Microscopic WBC 5-10 Urine Amorphous Urates MANY Urine Bacteria MODERATE Urine Yeast MODERATE Urine Hemoglobin 3+ H Urine Glucose NEGATIVE Urine Total Protein 4+ H White Blood Count 8.6 # Red Blood Count 2.74 L Hemoglobin 8.6 L Hematocrit 26.3 L Mean Corpuscular Volume 96.0 Mean Corpuscular Hemoglobin 31.4 Mean Corpuscular Hemoglobin Concent 32.7 Red Cell Distribution Width 12.8 Platelet Count 206 Mean Platelet Volume 10.5 H Neutrophils % 73.6 Lymphocytes % 12.5 L Monocytes % 11.9 H Eosinophils % 0.8 Basophils % 0.6 Nucleated Red Blood Cells % 0.0 Neutrophils # 6.3 Lymphocytes # 1.1 Monocytes # 1.0 H Eosinophils # 0.1 Basophils # 0.1 Nucleated Red Blood Cells # 0.0 Activated Partial Thromboplast Time 77.1 *H Sodium Level 132 L Potassium Level 3.4 #L Chloride Level 97 Carbon Dioxide Level 24 Anion Gap 14 Blood Urea Nitrogen 30 H Creatinine 6.42 H Glucose Level 83 # Calcium Level 7.4 L Phosphorus Level 6.4 H Magnesium Level 2.0 Test 12/14/16 07:00 12/14/16 09:50 Blood Gas Specimen Source Blood arterial Arterial Blood Date Drawn 12/14/2016 7:20:04 AM Arterial Blood pH (Temp corrected) 7.462 H Arterial Blood pCO2 (Temp correct) 33.8 L Arterial Blood pO2 (Temp corrected) 87.4 Arterial Blood HCO3 23.6 Arterial Blood Base Excess 0.1 Arterial Blood Oxygen Saturation 96.3 Derek Test ACCEPTAB Arterial Blood Gas Puncture Site Right Radial Arterial Blood Carboxyhemoglobin 0.3 Arterial Blood Methemoglobin 0.3 Blood Gas A-a O2 Differential 122.9 H Oxyhemoglobin Percent 95.7 Total Hemoglobin 9.9 L Blood Gas Temperature 37.0 Blood Gas Respiration Rate 18.0 Blood Gas Actual Respiration Rate 18 Blood Gas Modality VENT - AC FiO2 35.0 Blood Gas Tidal Volume 550.0 Blood Gas Low PEEP Setting 5.0 Blood Gas Notified Whom JLD Blood Gas Notified Time 12/14/2016 8:08:49 AM Bedside Glucose 89 Medications Medications Current Medications Diagnostic Test (Pha) (Accu-Chek) 1 ea 02 XX Last administered on 12/13/16 01: 17; Admin Dose 1 EA; Start 12/03/16 at 02:00 Ondansetron HCl (Zofran Inj) 4 mg Q6H PRN IV NAUSEA AND/OR VOMITING Last administered on 12/13/16 01:13; Admin Dose 4 MG; Start 12/02/16 at 22:30 Miscellaneous Information 1 ea NOTE XX ; Start 12/02/16 at 23:00 Glucose (Glutose) 15 gm Q15M PRN PO DECREASED GLUCOSE; Start 12/02/16 at 23:00 Glucose (Glutose) 22.5 gm Q15M PRN PO DECREASED GLUCOSE; Start 12/02/16 at 23: 00 Dextrose (D50w Syringe) 25 ml Q15M PRN IV DECREASED GLUCOSE Last administered on 12/10/16 05:52; Admin Dose 25 ML; Start 12/02/16 at 23:00 Dextrose (D50w Syringe) 50 ml Q15M PRN IV DECREASED GLUCOSE; Start 12/02/16 at 23:00 Glucagon (Glucagen) 1 mg Q15M PRN IM DECREASED GLUCOSE; Start 12/02/16 at 23:00 Glucose (Glutose) 15 gm Q15M PRN BUCCAL DECREASED GLUCOSE; Start 12/02/16 at 23 :00 Aspirin (Halfprin) 81 mg DAILY PO Last administered on 12/14/16 09:46; Admin Dose 81 MG; Start 12/03/16 at 09:00 Gabapentin (Neurontin) 800 mg TID PO Last administered on 12/08/16 20:33; Admin Dose 800 MG; Start 12/03/16 at 09:00; Status Future Hold Meclizine HCl (Antivert) 25 mg TID PRN PO dizziness Last administered on 10:04; Admin Dose 25 MG; Start 12/02/16 at 23:00 Terazosin HCl (Hytrin) 5 mg HS PO Last administered on 12/07/16 20:28; Admin Dose 5 MG; Start 12/03/16 at 21:00; Status Future Hold Acetaminophen/ Hydrocodone Bitart ([place] (5/325)) 1 tab Q6H PRN PO PAIN LEVEL 4 -7 Last administered on 12/10/16 21:31; Admin Dose 1 TAB; Start 12/02/16 at 23: 30 Acetaminophen (Tylenol Tab) 650 mg Q6H PRN PO PAIN AND OR ELEVATED TEMP; Start 12/02/16 at 23:30 Docusate Sodium (Colace) 100 mg BID PO Last administered on 12/08/16 20:32; Admin Dose 100 MG; Start 12/03/16 at 09:00; Status Future Hold Pantoprazole (Protonix Tab) 40 mg DAILY@06 PO Last administered on 12/14/16 06: 10; Admin Dose 40 MG; Start 12/03/16 at 06:00 Zolpidem Tartrate (Ambien) 5 mg HS PRN PO INSOMNIA Last administered on 00:45; Admin Dose 5 MG; Start 12/02/16 at 23:30 Benazepril HCl (Lotensin) 10 mg DAILY PO Last administered on 12/07/16 08:26; Admin Dose 10 MG; Start 12/04/16 at 09:00; Status Future Hold Insulin Glargine 25 unit 25 unit DAILY SC Last administered on 12/13/16 08:47; Admin Dose 25 UNIT; Start 12/06/16 at 09:00; Status Future Hold Sodium Chloride (1/2 NS) 1,000 ml @ 70 mls/hr [id number] IV Last administered on 12/14/16 00:51; Admin Dose 70 MLS/HR; Start 12/07/16 at 12:30 Collagenase (Santyl) 1 applic DAILY TOP Last administered on 12/14/16 09:47; Admin Dose 1 APPLIC; Start 12/07/16 at 16:00 Lorazepam (Ativan) 2 mg Q2 PRN IV AGITATION/ANXIETY Last administered on 03:32; Admin Dose 1 MG; Start 12/09/16 at 09:30 Morphine Sulfate (morphine) 2 mg Q2H PRN IV PAIN Last administered on 12/13/16 02:00; Admin Dose 2 MG; Start 12/09/16 at 09:30 Acetaminophen 650 mg 650 mg Q6H PRN [place] ELEVATED TEMPERATURE Last administered on 12/09/16 17:53; Admin Dose 650 MG; Start 12/09/16 at 17:00 Piperacillin Sod/ Tazobactam Sod (Zosyn 2.25gm/ 50ml (Pmx)) 50 ml @ 100 mls/hr Q12 IVPB Last administered on 12/14/16 09:46; Admin Dose 100 MLS/HR; Start at 21:00 Metoprolol Tartrate 5 mg 5 mg Q4H PRN IV HR>100 Last administered on 12/10/16 22:23; Admin Dose 5 MG; Start 12/09/16 at 17:48 Phenylephrine HCl/ Dextrose (Fernandez-Syneph/D5W) 500 ml @ 75 mls/hr TITRATE IV Last administered on 12/13/16 15:21; Admin Dose 37.5 MLS/HR; Start 12/09/16 at 22:00 Amiodarone HCl (Cordarone) 200 mg BID PO Last administered on 12/14/16 09:46; Admin Dose 200 MG; Start 12/10/16 at 13:00 Hydralazine HCl (Apresoline) 10 mg Q6H PRN IV SBP>150mm hg ; Start 12/11/16 at 10:30 Metoprolol Tartrate (Lopressor) 25 mg BID PO Last administered on 12/12/16 20: 51; Admin Dose 25 MG; Start 12/11/16 at 21:00; Status Future Hold Morphine Sulfate 2 mg 2 mg Q2H PRN IV PAIN LEVEL 4-7; Start 12/13/16 at 10:00 Propofol 100 ml @ 2.544 mls/ hr Q12H IV Last administered on 12/14/16 05:04; Admin Dose 5.088 MLS/HR; Start 12/13/16 at 10:00 Linezolid (Zyvox 600mg/D5W (Pmx)) 300 ml @ 300 mls/hr Q12 IVPB Last administered on 12/14/16 09:46; Admin Dose 300 MLS/HR; Start 12/13/16 at 13:00 Insulin Aspart NOVOLOG *MODERATE* ALGORI... Q4 SC ; Start 12/14/16 at 09:00 Caspofungin 50 mg/ Sodium Chloride 250 ml @ 250 mls/hr Q24H IVPB ; Start at 11:00 Caspofungin 70 mg/ Sodium Chloride 250 ml @ 250 mls/hr ONCE ONCE IVPB ; Start 12/14/16 at 11:00; Stop 12/14/16 at 11:59 Dextrose/Sodium Chloride (D5-1/2ns) 1,000 ml @ 70 mls/hr [id number] IV ; Start 12/14/16 at 11:30 KIMBERLY NOYOLA December 14, 2016 11:47
--- NOTE | 2016-12-14 11:51 | PN ---
Date/Time of Note Date/Time of Note DATE: 12/14/16 TIME: 11:46 Assessment/Plan Lines/Catheters IV Catheter Type (from [facility]): PICC Line [place] in Place (from [facility]): Yes Assessment/Plan Chief Complaint/Hosp Course -Bilateral lower extremity atherosclerosis with left first toe plantar ulcer: It seems the patient has developed a first toe plantar ulcer,and diabetic foot infection which may be related to his fall over a week ago. The bilateral lower extremity noninvasive vascular studies demonstrated some infrapopliteal disease as the patient does not have palpable pedal pulses and has been a long time smoker. -ATN:It seems the patient will need permanent catheter and likely eventually fistula creation. Will await for fungemia to resolve prior to a perm catheter placement -Continue with antibiotics -No vascular intervention for now. Will follow the wound progress closely and would recommend an angiogram with possible intervention if poor wound healing arises -Optimize vascular status (BP meds, diet, nutrition, exercise, sugar control, antiplatelets, weight loss). -Discussed smoking cessation with the patient and he understands. -Discussed findings, plan and management with the patient with a certified conductor and engineer and he understands. -Thank you for allowing us to partake in the care of your patient. Please call with any questions. Problems: Subjective 24 Hr Interval Summary patient was reintubated Exam/Review of Systems Vital Signs Vitals Vital Signs Date Time Temp Pulse Resp B/P Pulse Ox O2 Delivery O2 Flow Rate FiO2 12/14/16 11:15 65 16 129/54 100 Mechanical Ventilator 12/14/16 11:10 35 12/14/16 08:00 97.5 12/13/16 06:40 10.0 Intake and Output 12/13/16 12/13/16 12/14/16 15:00 23:00 07:00 Intake Total 1728.584 ml 1463.348 ml 909.088 ml Output Total 3800 ml 5 ml 0 ml Balance -2071.416 ml 1458.348 ml 909.088 ml Exam Free Text/Dictation GENERAL: Alert and oriented x3, PULMONARY: Clear to auscultation bilaterally CARDIOVASCULAR: S1, S2 present ABDOMEN: Soft, nontender, nondistended. Bowel sounds positive. EXTREMITIES: Right lower extremity: Palpable femoral pulse, nonpalpable pedal pulse. Motor , sensory intact. Cap refill 3 to 4 seconds. No ulcers identified. Left lower extremity: Palpable femoral pulse, nonpalpable pedal pulse. Motor and sensory intact. Cap refill 3 to 4 seconds. First toe with erythema and edema improved. Plantar ulcer of 1st metatarsal with callus and erythema slightly improving No drainage Results Result Diagram: 12/14/16 0600 12/14/16 0600 KAROLINE SHOEMAKER MD December 14, 2016 11:51
--- NOTE | 2016-12-14 12:29 | CONS ---
Date/Time of Note Date/Time of Note DATE: 12/14/16 TIME: 12:22 Assessment/Plan Assessment/Plan Additional Assessment/Plan 1. Atrial fibrillation-currently in SR with PAC's, will adjust Rx as needed - rate controlled now. 2. Hypotension-Recurrent now patient back on pressors sa needed - will adjus Rx as needed. 3. Abnormal electrocardiogram with inferolateral T-wave inversions. 4. Respiratory failure-recurrent this am with RN [facility] TER[facility] now reintubated- con't to wean. 5. Nonhealing toe ulceration. 6. Peripheral arterial disease by arterial ultrasound of the lower extremities this admission. 7. Diabetes mellitus. 8. Fevers. 9. Positive troponin-slowly downtrending - no CP now, will adjust Rxa s needed. Consultation Date/Type/Reason Admit Date/Time Dec 02, 2016 at 21:01 Initial Consult Date 12/03/16 Type of Consultation: ID Referring Provider: VIET PARKER MD 24 HR Interval Summary Free Text/Dictation No acute change - still critically ill - will monitor clinically. ROS: No fever, no chills, no nausea, no vomiting, no diarrhea/constipation No recent weight changes No chest pain, no PND, no orthopnea No dizziness, blurred vision No thirst, no heat or cold intolerance (per nurse) Exam/Review of Systems Vital Signs Vitals Vital Signs Date Time Temp Pulse Resp B/P Pulse Ox O2 Delivery O2 Flow Rate FiO2 12/14/16 11:15 65 16 129/54 100 Mechanical Ventilator 12/14/16 11:10 35 12/14/16 08:00 97.5 12/13/16 06:40 10.0 Intake and Output 12/13/16 12/13/16 12/14/16 14:59 22:59 06:59 Intake Total 1067.820 ml 2000.848 ml 931.720 ml Output Total 100 ml 3805 ml 0 ml Balance 967.820 ml -1804.152 ml 931.720 ml Exam General: WN/WD/NAD, AOx 1-2 - intubated HEENT: Unicetric/atraumatic/EOMI (does not follow commands) NECK: JVD elevated, no thyromegaly Lymph: no lymphadenopathy HEART: regular with no S3, II/ systolic murmur at apex LUNGS: Coarse sounds ABD: soft, NT, ND, +BS : Intact Neuro: non focal SKIN: chronic changes EXT: trace edema Results Result Diagram: 12/14/16 0600 12/14/16 0600 Results 24 hrs Laboratory Tests Test 12/13/16 16:30 12/13/16 17:07 12/13/16 18:27 12/13/16 21:06 Lactic Acid Level 1.2 Bedside Glucose 126 86 Activated Partial Thromboplast Time 67.2 H Test 12/13/16 22:30 12/14/16 04:50 12/14/16 06:00 12/14/16 07:00 Urine Color LT. YELLOW Urine Clarity CLOUDY H Urine pH 6.5 Urine Specific [place] 1.020 Urine Ketones NEGATIVE Urine Nitrite NEGATIVE Urine Bilirubin NEGATIVE Urine Urobilinogen 0.2 E.U./dL Urine Leukocyte Esterase 1+ H Urine Microscopic RBC >50 Urine Microscopic WBC 5-10 Urine Amorphous Urates MANY Urine Bacteria MODERATE Urine Yeast MODERATE Urine Hemoglobin 3+ H Urine Glucose NEGATIVE Urine Total Protein 4+ H Bedside Glucose 81 White Blood Count 8.6 # Red Blood Count 2.74 L Hemoglobin 8.6 L Hematocrit 26.3 L Mean Corpuscular Volume 96.0 Mean Corpuscular Hemoglobin 31.4 Mean Corpuscular Hemoglobin Concent 32.7 Red Cell Distribution Width 12.8 Platelet Count 206 Mean Platelet Volume 10.5 H Neutrophils % 73.6 Lymphocytes % 12.5 L Monocytes % 11.9 H Eosinophils % 0.8 Basophils % 0.6 Nucleated Red Blood Cells % 0.0 Neutrophils # 6.3 Lymphocytes # 1.1 Monocytes # 1.0 H Eosinophils # 0.1 Basophils # 0.1 Nucleated Red Blood Cells # 0.0 Activated Partial Thromboplast Time 77.1 *H Sodium Level 132 L Potassium Level 3.4 #L Chloride Level 97 Carbon Dioxide Level 24 Anion Gap 14 Blood Urea Nitrogen 30 H Creatinine 6.42 H Glucose Level 83 # Calcium Level 7.4 L Phosphorus Level 6.4 H Magnesium Level 2.0 Blood Gas Specimen Source Blood arterial Arterial Blood Date Drawn 12/14/2016 7:20:04 AM Arterial Blood pH (Temp corrected) 7.462 H Arterial Blood pCO2 (Temp correct) 33.8 L Arterial Blood pO2 (Temp corrected) 87.4 Arterial Blood HCO3 23.6 Arterial Blood Base Excess 0.1 Arterial Blood Oxygen Saturation 96.3 Derek Test ACCEPTAB Arterial Blood Gas Puncture Site Right Radial Arterial Blood Carboxyhemoglobin 0.3 Arterial Blood Methemoglobin 0.3 Blood Gas A-a O2 Differential 122.9 H Oxyhemoglobin Percent 95.7 Total Hemoglobin 9.9 L Blood Gas Temperature 37.0 Blood Gas Respiration Rate 18.0 Blood Gas Actual Respiration Rate 18 Blood Gas Modality VENT - AC FiO2 35.0 Blood Gas Tidal Volume 550.0 Blood Gas Low PEEP Setting 5.0 Blood Gas Notified Whom JLD Blood Gas Notified Time 12/14/2016 8:08:49 AM Test 12/14/16 09:50 Bedside Glucose 89 Medications Medications Current Medications Diagnostic Test (Pha) (Accu-Chek) 1 ea 02 XX Last administered on 12/13/16 01: 17; Admin Dose 1 EA; Start 12/03/16 at 02:00 Ondansetron HCl (Zofran Inj) 4 mg Q6H PRN IV NAUSEA AND/OR VOMITING Last administered on 12/13/16 01:13; Admin Dose 4 MG; Start 12/02/16 at 22:30 Miscellaneous Information 1 ea NOTE XX ; Start 12/02/16 at 23:00 Glucose (Glutose) 15 gm Q15M PRN PO DECREASED GLUCOSE; Start 12/02/16 at 23:00 Glucose (Glutose) 22.5 gm Q15M PRN PO DECREASED GLUCOSE; Start 12/02/16 at 23: 00 Dextrose (D50w Syringe) 25 ml Q15M PRN IV DECREASED GLUCOSE Last administered on 12/10/16 05:52; Admin Dose 25 ML; Start 12/02/16 at 23:00 Dextrose (D50w Syringe) 50 ml Q15M PRN IV DECREASED GLUCOSE; Start 12/02/16 at 23:00 Glucagon (Glucagen) 1 mg Q15M PRN IM DECREASED GLUCOSE; Start 12/02/16 at 23:00 Glucose (Glutose) 15 gm Q15M PRN BUCCAL DECREASED GLUCOSE; Start 12/02/16 at 23 :00 Aspirin (Halfprin) 81 mg DAILY PO Last administered on 12/14/16 09:46; Admin Dose 81 MG; Start 12/03/16 at 09:00 Gabapentin (Neurontin) 800 mg TID PO Last administered on 12/08/16 20:33; Admin Dose 800 MG; Start 12/03/16 at 09:00; Status Future Hold Meclizine HCl (Antivert) 25 mg TID PRN PO dizziness Last administered on 10:04; Admin Dose 25 MG; Start 12/02/16 at 23:00 Terazosin HCl (Hytrin) 5 mg HS PO Last administered on 12/07/16 20:28; Admin Dose 5 MG; Start 12/03/16 at 21:00; Status Future Hold Acetaminophen/ Hydrocodone Bitart ([place] (5/325)) 1 tab Q6H PRN PO PAIN LEVEL 4 -7 Last administered on 12/10/16 21:31; Admin Dose 1 TAB; Start 12/02/16 at 23: 30 Acetaminophen (Tylenol Tab) 650 mg Q6H PRN PO PAIN AND [place] ELEVATED TEMP; Start 12/02/16 at 23:30 Docusate Sodium (Colace) 100 mg BID PO Last administered on 12/08/16 20:32; Admin Dose 100 MG; Start 12/03/16 at 09:00; Status Future Hold Pantoprazole (Protonix Tab) 40 mg DAILY@06 PO Last administered on 12/14/16 06: 10; Admin Dose 40 MG; Start 12/03/16 at 06:00 Zolpidem Tartrate (Ambien) 5 mg HS PRN PO INSOMNIA Last administered on 00:45; Admin Dose 5 MG; Start 12/02/16 at 23:30 Benazepril HCl (Lotensin) 10 mg DAILY PO Last administered on 12/07/16 08:26; Admin Dose 10 MG; Start 12/04/16 at 09:00; Status Future Hold Insulin Glargine 25 unit 25 unit DAILY SC Last administered on 12/13/16 08:47; Admin Dose 25 UNIT; Start 12/06/16 at 09:00; Status Future Hold Sodium Chloride (1/2 NS) 1,000 ml @ 70 mls/hr [id number] IV Last administered on 12/14/16 00:51; Admin Dose 70 MLS/HR; Start 12/07/16 at 12:30 Collagenase (Santyl) 1 applic DAILY TOP Last administered on 12/14/16 09:47; Admin Dose 1 APPLIC; Start 12/07/16 at 16:00 Lorazepam (Ativan) 2 mg Q2 PRN IV AGITATION/ANXIETY Last administered on 03:32; Admin Dose 1 MG; Start 12/09/16 at 09:30 Morphine Sulfate (morphine) 2 mg Q2H PRN IV PAIN Last administered on 12/13/16 02:00; Admin Dose 2 MG; Start 12/09/16 at 09:30 Acetaminophen 650 mg 650 mg Q6H PRN [place] ELEVATED TEMPERATURE Last administered on 12/09/16 17:53; Admin Dose 650 MG; Start 12/09/16 at 17:00 Piperacillin Sod/ Tazobactam Sod (Zosyn 2.25gm/ 50ml (Pmx)) 50 ml @ 100 mls/hr Q12 IVPB Last administered on 12/14/16 09:46; Admin Dose 100 MLS/HR; Start at 21:00 Metoprolol Tartrate 5 mg 5 mg Q4H PRN IV HR>100 Last administered on 12/10/16 22:23; Admin Dose 5 MG; Start 12/09/16 at 17:48 Phenylephrine HCl/ Dextrose (Fernandez-Syneph/D5W) 500 ml @ 75 mls/hr TITRATE IV Last administered on 12/13/16 15:21; Admin Dose 37.5 MLS/HR; Start 12/09/16 at 22:00 Amiodarone HCl (Cordarone) 200 mg BID PO Last administered on 12/14/16 09:46; Admin Dose 200 MG; Start 12/10/16 at 13:00 Hydralazine HCl (Apresoline) 10 mg Q6H PRN IV SBP>150mm hg ; Start 12/11/16 at 10:30 Metoprolol Tartrate (Lopressor) 25 mg BID PO Last administered on 12/12/16 20: 51; Admin Dose 25 MG; Start 12/11/16 at 21:00; Status Future Hold Morphine Sulfate 2 mg 2 mg Q2H PRN IV PAIN LEVEL 4-7; Start 12/13/16 at 10:00 Propofol 100 ml @ 2.544 mls/ hr Q12H IV Last administered on 12/14/16 05:04; Admin Dose 5.088 MLS/HR; Start 12/13/16 at 10:00 Linezolid (Zyvox 600mg/D5W (Pmx)) 300 ml @ 300 mls/hr Q12 IVPB Last administered on 12/14/16t 09:46; Admin Dose 300 MLS/HR; Start 12/13/16 at 13:00 Insulin Aspart NOVOLOG *MODERATE* ALGORI... Q4 SC ; Start 12/14/16 at 09:00 Caspofungin 50 mg/ Sodium Chloride 250 ml @ 250 mls/hr Q24H IVPB ; Start at 11:00 Dextrose/Sodium Chloride (D5-1/2ns) 1,000 ml @ 70 mls/hr [id number] IV ; Start 12/14/16 at 11:30 DAVE NICOLE MD December 14, 2016 12:29
--- NOTE | 2016-12-14 13:24 | RADRPT ---
PROCEDURE: XR Chest. CLINICAL INDICATION: Pneumonia, congestive heart failure. TECHNIQUE: Single frontal portable chest was obtained. COMPARISON: 12/13/2016. FINDINGS: Cardiac silhouette remains mildly enlarged and there is calcification in the thoracic aorta. There has been an increase in vascular congestion. There is an increase in diffuse interstitial infiltrat es with air space consolidation in the right upper lung field and both lower lung field. There is s light apparent increase in bilateral pleural effusions. Endotracheal tube tip remains in the mid tr achea. Nasogastric tube and left PICC line appear unchanged. IMPRESSION: 1. Slight apparent increase in vascular congestion and mixed interstitial alveolar edema. 2. Slight increase in bilateral pleural effusions, right greater than left. RPTAT: [facility] Physician Lit Date Time Electronically viewed and signed by Physician Lit on 12/14/2016 13:24 /
[2016-12-14] MEDS: DEXTROSE 5%-0.45% NACL 1,000 ML IV SCH (15:13)
--- NOTE | 2016-12-14 16:34 | CONS ---
Date/Time of Note Date/Time of Note DATE: 12/14/16 TIME: 16:32 Assessment/Plan Assessment/Plan Additional Assessment/Plan 1. Oliguric to Anuric Acute kidney injury 2/2 ATN- started on HD on 12/09/16 for acute fluid overload and Pulmonary edema 2. acute resp failure intubated on ventilator -now extubated on 12/10/2016- then again reintubated on 12/13/2016 2. Left foot diabetic ulcer/cellulitis currently on IV antibiotics, Zosyn and vancomycin. 3. History of diabetes mellitus, insulin-dependent with lower extremity neuropathy. 4. History of hypertension. 5. History of aortic stenosis with diastolic dysfunction with ejection fraction 60% on echocardiogram. 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 - will discuss with family at bedside whenever they are ready to have that discussion( does not want to talk about that at this time) IV hydralazine prn will continue to follow up on patient Consultation Date/Type/Reason Admit Date/Time Dec 02, 2016 at 21:01 Initial Consult Date Type of Consultation: NEPHROLOGY Referring Provider: VIET PARKER MD 24 HR Interval Summary Free Text/Dictation no acute vents, BP stable, awake, Plan for HD today and then weaning Exam/Review of Systems Vital Signs Vitals Vital Signs Date Time Temp Pulse Resp B/P Pulse Ox O2 Delivery O2 Flow Rate FiO2 12/14/16 16:00 74 12/14/16 15:45 20 117/64 97 Mechanical Ventilator 12/14/16 12:00 97.6 12/14/16 11:10 35 12/13/16 06:40 10.0 Intake and Output 12/13/16 12/13/16 12/14/16 15:00 23:00 07:00 Intake Total 1728.584 ml 1463.348 ml 909.088 ml Output Total 3800 ml 5 ml 0 ml Balance -2071.416 ml 1458.348 ml 909.088 ml Exam GENERAL: intubated on ventilator HEENT: Normal. Oropharynx clear. NECK: + JVD LUNGS: bilateral basilar crackles HEART: S1, S2, with regular rhythm, no murmur. ABDOMEN: Soft, nontender, nondistended. Bowel sounds are present. EXTREMITIES: left foot dressing in place, + [place] catheter in place NEUROLOGICAL: not able to assess Results Result Diagram: 12/14/16 0600 12/14/16 0600 Results 24 hrs Laboratory Tests Test 12/13/16 17:07 12/13/16 18:27 12/13/16 21:06 12/13/16 22:30 Bedside Glucose 126 86 Activated Partial Thromboplast Time 67.2 H Urine Color LT. YELLOW Urine Clarity CLOUDY H Urine pH 6.5 Urine Specific [place] 1.020 Urine Ketones NEGATIVE Urine Nitrite NEGATIVE Urine Bilirubin NEGATIVE Urine Urobilinogen 0.2 E.U./dL Urine Leukocyte Esterase 1+ H Urine Microscopic RBC >50 Urine Microscopic WBC 5-10 Urine Amorphous Urates MANY Urine Bacteria MODERATE Urine Yeast MODERATE Urine Hemoglobin 3+ H Urine Glucose NEGATIVE Urine Total Protein 4+ H Test 12/14/16 04:50 12/14/16 06:00 12/14/16 07:00 12/14/16 09:50 Bedside Glucose 81 89 White Blood Count 8.6 # Red Blood Count 2.74 L Hemoglobin 8.6 L Hematocrit 26.3 L Mean Corpuscular Volume 96.0 Mean Corpuscular Hemoglobin 31.4 Mean Corpuscular Hemoglobin Concent 32.7 Red Cell Distribution Width 12.8 Platelet Count 206 Mean Platelet Volume 10.5 H Neutrophils % 73.6 Lymphocytes % 12.5 L Monocytes % 11.9 H Eosinophils % 0.8 Basophils % 0.6 Nucleated Red Blood Cells % 0.0 Neutrophils # 6.3 Lymphocytes # 1.1 Monocytes # 1.0 H Eosinophils # 0.1 Basophils # 0.1 Nucleated Red Blood Cells # 0.0 Activated Partial Thromboplast Time 77.1 *H Sodium Level 132 L Potassium Level 3.4 #L Chloride Level 97 Carbon Dioxide Level 24 Anion Gap 14 Blood Urea Nitrogen 30 H Creatinine 6.42 H Glucose Level 83 # Calcium Level 7.4 L Phosphorus Level 6.4 H Magnesium Level 2.0 Blood Gas Specimen Source Blood arterial Arterial Blood Date Drawn 12/14/2016 7:20:04 AM Arterial Blood pH (Temp corrected) 7.462 H Arterial Blood pCO2 (Temp correct) 33.8 L Arterial Blood pO2 (Temp corrected) 87.4 Arterial Blood HCO3 23.6 Arterial Blood Base Excess 0.1 Arterial Blood Oxygen Saturation 96.3 Derek Test ACCEPTAB Arterial Blood Gas Puncture Site Right Radial Arterial Blood Carboxyhemoglobin 0.3 Arterial Blood Methemoglobin 0.3 Blood Gas A-a O2 Differential 122.9 H Oxyhemoglobin Percent 95.7 Total Hemoglobin 9.9 L Blood Gas Temperature 37.0 Blood Gas Respiration Rate 18.0 Blood Gas Actual Respiration Rate 18 Blood Gas Modality VENT - AC FiO2 35.0 Blood Gas Tidal Volume 550.0 Blood Gas Low PEEP Setting 5.0 Blood Gas Notified Whom JLD Blood Gas Notified Time 12/14/2016 8:08:49 AM Test 12/14/16 15:30 12/14/16 16:21 Activated Partial Thromboplast Time 61.6 H Bedside Glucose 136 Medications Medications Current Medications Diagnostic Test (Pha) (Accu-Chek) 1 ea 02 XX Last administered on 12/13/16 01: 17; Admin Dose 1 EA; Start 12/03/16 at 02:00 Ondansetron HCl (Zofran Inj) 4 mg Q6H PRN IV NAUSEA AND/OR VOMITING Last administered on 12/13/16 01:13; Admin Dose 4 MG; Start 12/02/16 at 22:30 Miscellaneous Information 1 ea NOTE XX ; Start 12/02/16 at 23:00 Glucose (Glutose) 15 gm Q15M PRN PO DECREASED GLUCOSE; Start 12/02/16 at 23:00 Glucose (Glutose) 22.5 gm Q15M PRN PO DECREASED GLUCOSE; Start 12/02/16 at 23: 00 Dextrose (D50w Syringe) 25 ml Q15M PRN IV DECREASED GLUCOSE Last administered on 12/10/16 05:52; Admin Dose 25 ML; Start 12/02/16 at 23:00 Dextrose (D50w Syringe) 50 ml Q15M PRN IV DECREASED GLUCOSE; Start 12/02/16 at 23:00 Glucagon (Glucagen) 1 mg Q15M PRN IM DECREASED GLUCOSE; Start 12/02/16 at 23:00 Glucose (Glutose) 15 gm Q15M PRN BUCCAL DECREASED GLUCOSE; Start 12/02/16 at 23 :00 Aspirin (Halfprin) 81 mg DAILY PO Last administered on 12/14/16 09:46; Admin Dose 81 MG; Start 12/03/16 at 09:00 Gabapentin (Neurontin) 800 mg TID PO Last administered on 12/08/16 20:33; Admin Dose 800 MG; Start 12/03/16 at 09:00; Status Future Hold Meclizine HCl (Antivert) 25 mg TID PRN PO dizziness Last administered on 10:04; Admin Dose 25 MG; Start 12/02/16 at 23:00 Terazosin HCl (Hytrin) 5 mg HS PO Last administered on 12/07/16 20:28; Admin Dose 5 MG; Start 12/03/16 at 21:00; Status Future Hold Acetaminophen/ Hydrocodone Bitart ([place] (5/325)) 1 tab Q6H PRN PO PAIN LEVEL 4 -7 Last administered on 12/10/16 21:31; Admin Dose 1 TAB; Start 12/02/16 at 23: 30 Acetaminophen (Tylenol Tab) 650 mg Q6H PRN PO PAIN AND OR ELEVATED TEMP; Start 12/02/16 at 23:30 Docusate Sodium (Colace) 100 mg BID PO Last administered on 12/08/16 20:32; Admin Dose 100 MG; Start 12/03/16 at 09:00; Status Future Hold Pantoprazole (Protonix Tab) 40 mg DAILY@06 PO Last administered on 12/14/16 06: 10; Admin Dose 40 MG; Start 12/03/16 at 06:00 Zolpidem Tartrate (Ambien) 5 mg HS PRN PO INSOMNIA Last administered on 00:45; Admin Dose 5 MG; Start 12/02/16 at 23:30 Benazepril HCl (Lotensin) 10 mg DAILY PO Last administered on 12/07/16 08:26; Admin Dose 10 MG; Start 12/04/16 at 09:00; Status Future Hold Insulin Glargine (Lantus) 25 unit DAILY SC Last administered on 12/13/16 08:47 ; Admin Dose 25 UNIT; Start 12/06/16 at 09:00; Status Future Hold Collagenase (Santyl) 1 applic DAILY TOP Last administered on 12/14/16 09:47; Admin Dose 1 APPLIC; Start 12/07/16 at 16:00 Lorazepam (Ativan) 2 mg Q2 PRN IV AGITATION/ANXIETY Last administered on 03:32; Admin Dose 1 MG; Start 12/09/16 at 09:30 Morphine Sulfate (morphine) 2 mg Q2H PRN IV PAIN Last administered on 12/13/16 02:00; Admin Dose 2 MG; Start 12/09/16 at 09:30 Acetaminophen 650 mg 650 mg Q6H PRN [place] ELEVATED TEMPERATURE Last administered on 12/09/16 17:53; Admin Dose 650 MG; Start 12/09/16 at 17:00 Piperacillin Sod/ Tazobactam Sod (Zosyn 2.25gm/ 50ml (Pmx)) 50 ml @ 100 mls/hr Q12 IVPB Last administered on 12/14/16 09:46; Admin Dose 100 MLS/HR; Start at 21:00 Metoprolol Tartrate 5 mg 5 mg Q4H PRN IV HR>100 Last administered on 12/10/16 22:23; Admin Dose 5 MG; Start 12/09/16 at 17:48 Phenylephrine HCl/ Dextrose (Fernandez-Syneph/D5W) 500 ml @ 75 mls/hr TITRATE IV Last administered on 12/13/16 15:21; Admin Dose 37.5 MLS/HR; Start 12/09/16 at 22:00 Amiodarone HCl (Cordarone) 200 mg BID PO Last administered on 12/14/16 09:46; Admin Dose 200 MG; Start 12/10/16 at 13:00 Hydralazine HCl (Apresoline) 10 mg Q6H PRN IV SBP>150mm hg ; Start 12/11/16 at 10:30 Metoprolol Tartrate (Lopressor) 25 mg BID PO Last administered on 12/12/16 20: 51; Admin Dose 25 MG; Start 12/11/16 at 21:00; Status Future Hold Morphine Sulfate 2 mg 2 mg Q2H PRN IV PAIN LEVEL 4-7; Start 12/13/16 at 10:00 Propofol 100 ml @ 2.544 mls/ hr Q12H IV Last administered on 12/14/16 05:04; Admin Dose 5.088 MLS/HR; Start 12/13/16 at 10:00 Linezolid (Zyvox 600mg/D5W (Pmx)) 300 ml @ 300 mls/hr Q12 IVPB Last administered on 12/14/16 09:46; Admin Dose 300 MLS/HR; Start 12/13/16 at 13:00 Insulin Aspart NOVOLOG *MODERATE* ALGORI... Q4 SC ; Start 12/14/16 at 09:00 Caspofungin 50 mg/ Sodium Chloride 250 ml @ 250 mls/hr Q24H IVPB ; Start at 11:00 Dextrose/Sodium Chloride (D5-1/2ns) 1,000 ml @ 70 mls/hr [id number] IV Last administered on 12/14/16 15:13; Admin Dose 70 MLS/HR; Start 12/14/16 at 11:30 TASHIA MCGARRY MD December 14, 2016 16:33
[2016-12-15] VITALS (88 sets, daily range): BP systolic 104–163; BP diastolic 48–71; PULSE 57–79; RESP 9–22
[2016-12-15] MEDS: DEXTROSE 5%-0.45% NACL 1,000 ML IV SCH ×3 (01:48→11:57)
[2016-12-15] MEDS: INSULIN ASPART [NOVOLOG] 3 ML PEN SC SCH ×6 (02:00→20:54)
[2016-12-15] MEDS: ACCU-CHEK XX SCH (02:02)
--- NOTE | 2016-12-15 02:55 | CONS ---
DATE OF ADMISSION: 12/02/2016 DATE OF CONSULTATION: 12/14/2016 TYPE OF CONSULTATION: Neurological consult. Thank you, Dr. Heredia, for your kind referral for evaluation of possible stroke and encephalopathy . HISTORY OF PRESENT ILLNESS: The patient is a 66-year-old gentleman who was admitted on 12/02/2016 w ith diabetic ulcer and cellulitis of the left foot and hypertension and diabetes. During this hospi talization, the patient, on the , went into hypoxemic and hypercapnic respiratory failure, requi red intubation, diagnosed with acute kidney injury. According to the nurse, at some point, he was e xtubated but required reintubation again. His most recent medical problems include respiratory fail ure secondary to pulmonary edema, acute renal failure on hemodialysis, paroxysmal atrial fibrillatio n on heparin, hypotension on pressure support, fungemia, diabetes. Patient had CAT scan of the head done yesterday which shows presence of acute to subacute right occi pital lobe ischemic infarct. MRI was recommended. ALLERGIES: VANCOMYCIN. CURRENT MEDICATIONS: 1. Caspofungin. 2. Amiodarone. 3. Apresoline. 4. Heparin for anticoagulation. 5. Zosyn. 6. Metoprolol. 7. Aspirin. 8. Pantoprazole. SOCIAL HISTORY: Former smoker. No drug use. FAMILY HISTORY: Noncontributory. REVIEW OF SYSTEMS: Unable to obtain, he is intubated. PHYSICAL EXAMINATION: VITAL SIGNS: 98.8 temperature, 70 pulse, 20 respirations, 126/56 blood pressure. GENERAL: He is not in acute distress, lying in bed. HEENT: Normocephalic, atraumatic head. NECK: No carotid bruits. No thyromegaly. LUNGS: Clear to auscultation bilaterally. CARDIAC: Normal cardiac rhythm and sounds. ABDOMEN: Soft. EXTREMITIES: No cyanosis, clubbing or edema. Left big toe ulcer. NEUROLOGIC: He is awake. He at times looks bilaterally to request. I spoke to him in [place] and he seemed to follow commands, not complex commands but at least simple commands such as lift arms, m ove legs at times it requires prompting but he was able to follow them. Present response to visual threat bilaterally. Pupils reactive from 3 to 2 mm bilaterally. Extraocular movements intact. No nystagmus. Symmetrical face. Corneal reflexes present bilaterally as well as gag. Motor strength examination shows symmetrical movements in the upper and lower extremities, at least 3/5 against gra vity. Deep tendon reflexes 2+ upper extremities, absent in lower extremities. Equivocal response to plant ar stimulation bilaterally. Coordination was not evaluated. LABORATORY AND DIAGNOSTIC DATA: His labs show anemia 8.6 hemoglobin, 26.3 hematocrit. Chemistry: BUN 30, creatinine 6.4. Sodium 132, potassium 3.4, calcium 7.4. Troponin still elevated at 0.67. IMPRESSION: 1. Encephalopathy, likely toxic metabolic in etiology secondary to ongoing medical problems. 2. Acute respiratory failure, possible cardiopulmonary arrest ?. I reviewed CAT scan of the head. It does shows some new compared to previous imaging in 2004, right occipital hypodensity but, to me, it could well reflect old changes not necessarily new. MRI of th e brain would be more definite as to confirm or exclude presence of acute stroke though it does not seem that it would change anything drastic in the patient's management so there is no super urgency to do this, whenever it is possible. Continue current treatment. Thank you very much for this interesting consultation. Dictated By: MARICEL WONG/MICHELLE Conf#: [id number] DID#: [id number]
[2016-12-15 04:20] LABS: ADD SCAN DIFF NO
[2016-12-15 04:51] LABS: POTASSIUM 3.5 mmol/L (3.5-5.1)
[2016-12-15 04:54] LABS: CREATININE 6.14 mg/dl (0.61-1.24)
[2016-12-15 04:55] LABS: BASOPHILS % 0.4 % (0.0-2.0); CALCIUM 7.2 mg/dl (8.4-10.2); EOSINOPHILS # 0.1 10^3/ul (0.0-0.5); EOSINOPHILS % 0.8 % (0.0-7.0); HEMOGLOBIN 7.9 g/dl (14.0-18.0); LYMPHOCYTES # 0.8 10^3/ul (0.8-2.9); LYMPHOCYTES % 10.4 % (15.0-51.0); MAGNESIUM 1.9 mg/dl (1.7-2.5); MEAN CORPUSCULAR HEMOGLOBIN 31.3 pg (29.0-33.0); MEAN CORPUSCULAR HGB CONC 32.9 g/dl (32.0-37.0); MEAN CORPUSCULAR VOLUME 95.2 fl (82.0-101.0); MEAN PLATELET VOLUME 10.3 fl (7.4-10.4); MONOCYTE # 0.9 10^3/ul (0.3-0.9); MONOCYTES % 11.6 % (0.0-11.0); NEUTROPHIL # 5.8 10^3/ul (1.6-7.5); PHOSPHORUS 6.1 mg/dl (2.5-4.9); PLATELET COUNT 184 10^3/UL (140-415); RED BLOOD COUNT 2.52 10^6/ul (4.70-6.10); RED CELL DISTRIBUTION WIDTH 12.5 % (11.5-14.5); WHITE BLOOD COUNT 7.7 10^3/ul (4.8-10.8)
[2016-12-15] MEDS: PROPOFOL 100 ML IV SCH ×3 (05:34→22:04)
[2016-12-15] MEDS: PANTOPRAZOLE (EC) 40 MG TAB PO SCH (05:45)
[2016-12-15 08:09] LABS: AADO2 Arterial 106.1 mmHg (7.0-24.0); Allen Test ACCEPTAB; Arterial Base Excess -0.5 mmol/L (-3.0-3); Arterial COHb 0.3 % (0.0-3.0); Arterial HCO3 22.6 mmol/L (22.0-26.0); Arterial MetHb 0.4 % (0.0-1.5); Arterial Total Hemglobin 9.3 g/dl (12.0-18.0); MODE VENT - AC
[2016-12-15] MEDS: PIPER-TAZO 2.25 GM (PMX) 50 ML IVPB SCH ×2 (09:18→20:40)
[2016-12-15] MEDS: ASPIRIN (EC) 81 MG TAB PO SCH (09:18)
[2016-12-15] MEDS: LINEZOLID 600 MG/D5W (PMX) 300 ML IVPB SCH ×2 (09:18→20:40)
[2016-12-15] MEDS: AMIODARONE 200 MG TAB PO SCH ×2 (09:19→20:40)
[2016-12-15] MEDS: COLLAGENASE 30 GM TUBE TOP SCH (09:24)
--- NOTE | 2016-12-15 09:49 | CONS ---
Date/Time of Note Date/Time of Note DATE: 12/15/16 TIME: 09:46 Assessment/Plan Assessment/Plan Additional Assessment/Plan 1. Oliguric to Anuric Acute kidney injury 2/2 ATN- started on HD on 12/09/16 for acute fluid overload and Pulmonary edema 2. acute resp failure intubated on ventilator -now extubated on 12/10/2016- then again reintubated on 12/13/2016 2. Left foot diabetic ulcer/cellulitis currently on IV antibiotics, Zosyn and vancomycin. 3. History of diabetes mellitus, insulin-dependent with lower extremity neuropathy. 4. History of hypertension. 5. History of aortic stenosis with diastolic dysfunction with ejection fraction 60% on echocardiogram. 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 - will discuss with family at bedside whenever they are ready to have that discussion( does not want to talk about that at this time) IV hydralazine prn will continue to follow up on patient Consultation Date/Type/Reason Admit Date/Time Dec 02, 2016 at 21:01 Initial Consult Date Type of Consultation: NEPHROLOGY Referring Provider: VIET PARKER MD 24 HR Interval Summary Free Text/Dictation pt remaiins intubated, still has congestiona nd effusion on right side, non verbal due to ET tube Exam/Review of Systems Vital Signs Vitals Vital Signs Date Time Temp Pulse Resp B/P Pulse Ox O2 Delivery O2 Flow Rate FiO2 12/15/16 06:00 60 18 119/59 98 Mechanical Ventilator 12/15/16 05:23 35 12/15/16 04:00 99.2 12/13/16 06:40 10.0 Intake and Output 12/14/16 12/14/16 12/15/16 15:00 23:00 07:00 Intake Total 552.056 ml 2337.292 ml 434.924 ml Output Total 2000 ml 5 ml 42 ml Balance -1447.944 ml 2332.292 ml 392.924 ml Exam GENERAL: intubated on ventilator HEENT: Normal. Oropharynx clear. NECK: + JVD LUNGS: bilateral basilar crackles HEART: S1, S2, with regular rhythm, no murmur. ABDOMEN: Soft, nontender, nondistended. Bowel sounds are present. EXTREMITIES: left foot dressing in place, + Molina catheter in place NEUROLOGICAL: not able to assess Results Result Diagram: 12/15/16 0400 12/15/16 0400 Results 24 hrs Laboratory Tests Test 12/14/16 09:50 12/14/16 15:30 12/14/16 16:21 12/14/16 21:19 Bedside Glucose 89 136 171 Activated Partial Thromboplast Time 61.6 H Test 12/14/16 22:02 12/15/16 01:58 12/15/16 04:00 12/15/16 05:41 Activated Partial Thromboplast Time 58.3 H 58.6 H Bedside Glucose 209 192 White Blood Count 7.7 Red Blood Count 2.52 L Hemoglobin 7.9 L Hematocrit 24.0 L Mean Corpuscular Volume 95.2 Mean Corpuscular Hemoglobin 31.3 Mean Corpuscular Hemoglobin Concent 32.9 Red Cell Distribution Width 12.5 Platelet Count 184 Mean Platelet Volume 10.3 Neutrophils % 76.0 Lymphocytes % 10.4 L Monocytes % 11.6 H Eosinophils % 0.8 Basophils % 0.4 Nucleated Red Blood Cells % 0.0 Neutrophils # 5.8 Lymphocytes # 0.8 Monocytes # 0.9 Eosinophils # 0.1 Basophils # 0.0 Nucleated Red Blood Cells # 0.0 Sodium Level 133 L Potassium Level 3.5 Chloride Level 96 L Carbon Dioxide Level 26 Anion Gap 15 Blood Urea Nitrogen 24 H Creatinine 6.14 H Glucose Level 170 Calcium Level 7.2 L Phosphorus Level 6.1 H Magnesium Level 1.9 Test 12/15/16 07:00 12/15/16 09:12 Blood Gas Specimen Source Blood arterial Arterial Blood Date Drawn 12/15/2016 7:50:11 AM Arterial Blood pH (Temp corrected) 7.476 H Arterial Blood pCO2 (Temp correct) 31.3 L Arterial Blood pO2 (Temp corrected) 107.1 H Arterial Blood HCO3 22.6 Arterial Blood Base Excess -0.5 Arterial Blood Oxygen Saturation 97.7 Derek Test ACCEPTAB Arterial Blood Gas Puncture Site Right Radial Arterial Blood Carboxyhemoglobin 0.3 Arterial Blood Methemoglobin 0.4 Blood Gas A-a O2 Differential 106.1 H Oxyhemoglobin Percent 97.0 Total Hemoglobin 9.3 L Blood Gas Temperature 37.0 Blood Gas Respiration Rate 18.0 Blood Gas Actual Respiration Rate 18 Blood Gas Modality VENT - AC FiO2 35.0 Blood Gas Tidal Volume 550.0 Blood Gas Low PEEP Setting 5.0 Blood Gas Notified Whom JLD Blood Gas Notified Time 12/15/2016 8:08:57 AM Bedside Glucose 176 Medications Medications Current Medications Diagnostic Test (Pha) (Accu-Chek) 1 ea 02 XX Last administered on 12/15/16 02: 02; Admin Dose 1 EA; Start 12/03/16 at 02:00 Ondansetron HCl (Zofran Inj) 4 mg Q6H PRN IV NAUSEA AND/OR VOMITING Last administered on 12/13/16 01:13; Admin Dose 4 MG; Start 12/02/16 at 22:30 Miscellaneous Information 1 ea NOTE XX ; Start 12/02/16 at 23:00 Glucose (Glutose) 15 gm Q15M PRN PO DECREASED GLUCOSE; Start 12/02/16 at 23:00 Glucose (Glutose) 22.5 gm Q15M PRN PO DECREASED GLUCOSE; Start 12/02/16 at 23: 00 Dextrose (D50w Syringe) 25 ml Q15M PRN IV DECREASED GLUCOSE Last administered on 12/10/16 05:52; Admin Dose 25 ML; Start 12/02/16 at 23:00 Dextrose (D50w Syringe) 50 ml Q15M PRN IV DECREASED GLUCOSE; Start 12/02/16 at 23:00 Glucagon (Glucagen) 1 mg Q15M PRN IM DECREASED GLUCOSE; Start 12/02/16 at 23:00 Glucose (Glutose) 15 gm Q15M PRN BUCCAL DECREASED GLUCOSE; Start 12/02/16 at 23 :00 Aspirin (Halfprin) 81 mg DAILY PO Last administered on 12/15/16 09:18; Admin Dose 81 MG; Start 12/03/16 at 09:00 Gabapentin (Neurontin) 800 mg TID PO Last administered on 12/08/16 20:33; Admin Dose 800 MG; Start 12/03/16 at 09:00; Status Future Hold Meclizine HCl (Antivert) 25 mg TID PRN PO dizziness Last administered on 10:04; Admin Dose 25 MG; Start 12/02/16 at 23:00 Terazosin HCl (Hytrin) 5 mg HS PO Last administered on 12/07/16 20:28; Admin Dose 5 MG; Start 12/03/16 at 21:00; Status Future Hold Acetaminophen/ Hydrocodone Bitart ([place] (5/325)) 1 tab Q6H PRN PO PAIN LEVEL 4 -7 Last administered on 12/10/16 21:31; Admin Dose 1 TAB; Start 12/02/16 at 23: 30 Acetaminophen (Tylenol Tab) 650 mg Q6H PRN PO PAIN AND OR ELEVATED TEMP; Start 12/02/16 at 23:30 Docusate Sodium (Colace) 100 mg BID PO Last administered on 12/08/16 20:32; Admin Dose 100 MG; Start 12/03/16 at 09:00; Status Future Hold Pantoprazole (Protonix Tab) 40 mg DAILY@06 PO Last administered on 12/15/16 05: 45; Admin Dose 40 MG; Start 12/03/16 at 06:00 Zolpidem Tartrate (Ambien) 5 mg HS PRN PO INSOMNIA Last administered on 00:45; Admin Dose 5 MG; Start 12/02/16 at 23:30 Benazepril HCl (Lotensin) 10 mg DAILY PO Last administered on 12/07/16 08:26; Admin Dose 10 MG; Start 12/04/16 at 09:00; Status Future Hold Insulin Glargine (Lantus) 25 unit DAILY SC Last administered on 12/13/16 08:47 ; Admin Dose 25 UNIT; Start 12/06/16 at 09:00; Status Future Hold Collagenase (Santyl) 1 applic DAILY TOP Last administered on 12/15/16 09:24; Admin Dose 1 APPLIC; Start 12/07/16 at 16:00 Lorazepam (Ativan) 2 mg Q2 PRN IV AGITATION/ANXIETY Last administered on 03:32; Admin Dose 1 MG; Start 12/09/16 at 09:30 Morphine Sulfate (morphine) 2 mg Q2H PRN IV PAIN Last administered on 12/13/16 02:00; Admin Dose 2 MG; Start 12/09/16 at 09:30 Acetaminophen 650 mg 650 mg Q6H PRN [place] ELEVATED TEMPERATURE Last administered on 12/09/16 17:53; Admin Dose 650 MG; Start 12/09/16 at 17:00 Piperacillin Sod/ Tazobactam Sod (Zosyn 2.25gm/ 50ml (Pmx)) 50 ml @ 100 mls/hr Q12 IVPB Last administered on 12/15/16 09:18; Admin Dose 100 MLS/HR; Start at 21:00 Metoprolol Tartrate 5 mg 5 mg Q4H PRN IV HR>100 Last administered on 12/10/16 22:23; Admin Dose 5 MG; Start 12/09/16 at 17:48 Phenylephrine HCl/ Dextrose (Fernandez-Syneph/D5W) 500 ml @ 75 mls/hr TITRATE IV Last administered on 12/13/16 15:21; Admin Dose 37.5 MLS/HR; Start 12/09/16 at 22:00 Amiodarone HCl (Cordarone) 200 mg BID PO Last administered on 12/15/16 09:19; Admin Dose 200 MG; Start 12/10/16 at 13:00 Hydralazine HCl (Apresoline) 10 mg Q6H PRN IV SBP>150mm hg ; Start 12/11/16 at 10:30 Metoprolol Tartrate (Lopressor) 25 mg BID PO Last administered on 12/12/16 20: 51; Admin Dose 25 MG; Start 12/11/16 at 21:00; Status Future Hold Morphine Sulfate 2 mg 2 mg Q2H PRN IV PAIN LEVEL 4-7; Start 12/13/16 at 10:00 Propofol 100 ml @ 2.544 mls/ hr Q12H IV Last administered on 12/15/16 05:34; Admin Dose 7.632 MLS/HR; Start 12/13/16 at 10:00 Linezolid (Zyvox 600mg/D5W (Pmx)) 300 ml @ 300 mls/hr Q12 IVPB Last administered on 12/15/16 09:18; Admin Dose 300 MLS/HR; Start 12/13/16 at 13:00 Insulin Aspart NOVOLOG *MODERATE* ALGORI... Q4 SC Last administered on 09:21; Admin Dose 2 UNIT; Start 12/14/16 at 09:00 Caspofungin 50 mg/ Sodium Chloride 250 ml @ 250 mls/hr Q24H IVPB ; Start at 11:00 Dextrose/Sodium Chloride (D5-1/2ns) 1,000 ml @ 70 mls/hr [id number] IV Last administered on 12/15/16 01:48; Admin Dose 70 MLS/HR; Start 12/14/16 at 11:30 TASHIA MCGARRY MD December 15, 2016 09:49
--- NOTE | 2016-12-15 09:51 | RADRPT ---
PROCEDURE: XR Chest. CLINICAL INDICATION: CHF TECHNIQUE: An AP view of the chest was obtained. COMPARISON: Chest x-ray dated 12/14/2016 FINDINGS: The endotracheal tube tip is approximately 4.3 cm above the dorinda. The tip of the enteric tube ex tends below the left diaphragm. There is a left upper extremity PICC line with tip near the cavoatri al junction. There is prominence of the interstitial and central pulmonary vascular markings with small bilatera l pleural effusions. There are diffuse bilateral interstitial opacities. No pneumothorax is seen. T he cardiomediastinal silhouette is mildly enlarged . Calcifications are seen within the aortic arch . The osseous structures demonstrate senescent changes. IMPRESSION: 1. Findings suggestive of pulmonary vascular congestion/interstitial edema with small bilateral pl eural effusions. No significant interval change. 2. Mild cardiomegaly and aortic atherosclerosis. 3. Tubes and lines, as described above. RPTAT: HH .Hailey Curry MD, MD Date Time Electronically viewed and signed by .Hailey Curry MD, MD on 12/15/2016 09:51 .G/
--- NOTE | 2016-12-15 10:15 | RADRPT ---
PROCEDURE: XR Abdomen. CLINICAL INDICATION: Status post nasogastric tube placement TECHNIQUE: AP abdomen x-ray. COMPARISON: None. FINDINGS: Nasogastric tube has its tip in the expected location of the distal stomach/first portion of the duo denum. Scattered air is seen in the colon multiple air-filled, nondilated loops of small bowel are seen throughout the abdomen. No dilated loops of small bowel are seen. No organomegaly is identifie d. Dialysis catheter is seen over the right pelvis generative changes are seen in the hips and spin e. IMPRESSION: Nasogastric tube with its tip in the expected location of the distal stomach/first portion of the du odenum. Nonspecific bowel gas pattern. RPTAT: AA .Bishnu Ramos MD, MD Date Time Electronically viewed and signed by .Bishnu Ramos MD, on 12/15/2016 10:14 .P/
--- NOTE | 2016-12-15 10:21 | CONS ---
Date/Time of Note Date/Time of Note DATE: 12/15/16 TIME: 10:20 Consult Date/Type/Reason Admit Date/Time Dec 02, 2016 at 21:01 Initial Consult Date 12/03/16 Type of Consultation: pulmonary ICU Ordering Provider: VIET PARKER MD Subjective Patient remains intubated on mechanical ventilation failed CPAP trial yesterday Objective Vital Signs Date Time Temp Pulse Resp B/P Pulse Ox O2 Delivery O2 Flow Rate FiO2 12/15/16 06:00 60 18 119/59 98 Mechanical Ventilator 12/15/16 05:23 35 12/15/16 04:00 99.2 12/13/16 06:40 10.0 Intake and Output 12/14/16 12/14/16 12/15/16 15:00 23:00 07:00 Intake Total 552.056 ml 2337.292 ml 434.924 ml Output Total 2000 ml 5 ml 42 ml Balance -1447.944 ml 2332.292 ml 392.924 ml Exam PHYSICAL EXAMINATION: GENERAL: Elderly [place] gentleman, intubated on mechanical ventilation, appears comfortable at rest, no acute distress. VITAL SIGNS: As above NECK: Supple. No JVD or lymphadenopathy. CARDIAC: S1, S2, no added sounds or murmurs. CHEST: Diminished air entry bilaterally. ABDOMEN: Soft, nontender. No guarding or rebound. EXTREMITIES: No cyanosis, clubbing, edema. NEUROLOGIC: Generalized weakness, but no focal deficits. Results/Medications Result Diagram: 12/15/16 0400 12/15/16 0400 Results 24 hrs Chest x-ray Significant pulmonary edema possibly loculated right pleural effusion Laboratory Tests Test 12/14/16 15:30 12/14/16 16:21 12/14/16 21:19 12/14/16 22:02 Activated Partial Thromboplast Time 61.6 H 58.3 H Bedside Glucose 136 171 Test 12/15/16 01:58 12/15/16 04:00 12/15/16 05:41 12/15/16 07:00 Bedside Glucose 209 192 White Blood Count 7.7 Red Blood Count 2.52 L Hemoglobin 7.9 L Hematocrit 24.0 L Mean Corpuscular Volume 95.2 Mean Corpuscular Hemoglobin 31.3 Mean Corpuscular Hemoglobin Concent 32.9 Red Cell Distribution Width 12.5 Platelet Count 184 Mean Platelet Volume 10.3 Neutrophils % 76.0 Lymphocytes % 10.4 L Monocytes % 11.6 H Eosinophils % 0.8 Basophils % 0.4 Nucleated Red Blood Cells % 0.0 Neutrophils # 5.8 Lymphocytes # 0.8 Monocytes # 0.9 Eosinophils # 0.1 Basophils # 0.0 Nucleated Red Blood Cells # 0.0 Activated Partial Thromboplast Time 58.6 H Sodium Level 133 L Potassium Level 3.5 Chloride Level 96 L Carbon Dioxide Level 26 Anion Gap 15 Blood Urea Nitrogen 24 H Creatinine 6.14 H Glucose Level 170 Calcium Level 7.2 L Phosphorus Level 6.1 H Magnesium Level 1.9 Blood Gas Specimen Source Blood arterial Arterial Blood Date Drawn 12/15/2016 7:50:11 AM Arterial Blood pH (Temp corrected) 7.476 H Arterial Blood pCO2 (Temp correct) 31.3 L Arterial Blood pO2 (Temp corrected) 107.1 H Arterial Blood HCO3 22.6 Arterial Blood Base Excess -0.5 Arterial Blood Oxygen Saturation 97.7 Derek Test ACCEPTAB Arterial Blood Gas Puncture Site Right Radial Arterial Blood Carboxyhemoglobin 0.3 Arterial Blood Methemoglobin 0.4 Blood Gas A-a O2 Differential 106.1 H Oxyhemoglobin Percent 97.0 Total Hemoglobin 9.3 L Blood Gas Temperature 37.0 Blood Gas Respiration Rate 18.0 Blood Gas Actual Respiration Rate 18 Blood Gas Modality VENT - AC FiO2 35.0 Blood Gas Tidal Volume 550.0 Blood Gas Low PEEP Setting 5.0 Blood Gas Notified Whom JLD Blood Gas Notified Time 12/15/2016 8:08:57 AM Test 12/15/16 09:12 Bedside Glucose 176 Medications Current Medications Diagnostic Test (Pha) (Accu-Chek) 1 ea 02 XX Last administered on 12/15/16 02: 02; Admin Dose 1 EA; Start 12/03/16 at 02:00 Ondansetron HCl (Zofran Inj) 4 mg Q6H PRN IV NAUSEA AND/OR VOMITING Last administered on 12/13/16 01:13; Admin Dose 4 MG; Start 12/02/16 at 22:30 Miscellaneous Information 1 ea NOTE XX ; Start 12/02/16 at 23:00 Glucose (Glutose) 15 gm Q15M PRN PO DECREASED GLUCOSE; Start 12/02/16 at 23:00 Glucose (Glutose) 22.5 gm Q15M PRN PO DECREASED GLUCOSE; Start 12/02/16 at 23: 00 Dextrose (D50w Syringe) 25 ml Q15M PRN IV DECREASED GLUCOSE Last administered on 12/10/16 05:52; Admin Dose 25 ML; Start 12/02/16 at 23:00 Dextrose (D50w Syringe) 50 ml Q15M PRN IV DECREASED GLUCOSE; Start 12/02/16 at 23:00 Glucagon (Glucagen) 1 mg Q15M PRN IM DECREASED GLUCOSE; Start 12/02/16 at 23:00 Glucose (Glutose) 15 gm Q15M PRN BUCCAL DECREASED GLUCOSE; Start 12/02/16 at 23 :00 Aspirin (Halfprin) 81 mg DAILY PO Last administered on 12/15/16 09:18; Admin Dose 81 MG; Start 12/03/16 at 09:00 Gabapentin (Neurontin) 800 mg TID PO Last administered on 12/08/16 20:33; Admin Dose 800 MG; Start 12/03/16 at 09:00; Status Future Hold Meclizine HCl (Antivert) 25 mg TID PRN PO dizziness Last administered on 10:04; Admin Dose 25 MG; Start 12/02/16 at 23:00 Terazosin HCl (Hytrin) 5 mg HS PO Last administered on 12/07/16 20:28; Admin Dose 5 MG; Start 12/03/16 at 21:00; Status Future Hold Acetaminophen/ Hydrocodone Bitart ([place] (5/325)) 1 tab Q6H PRN PO PAIN LEVEL 4 -7 Last administered on 12/10/16 21:31; Admin Dose 1 TAB; Start 12/02/16 at 23: 30 Acetaminophen (Tylenol Tab) 650 mg Q6H PRN PO PAIN AND OR ELEVATED TEMP; Start 12/02/16 at 23:30 Docusate Sodium (Colace) 100 mg BID PO Last administered on 12/08/16 20:32; Admin Dose 100 MG; Start 12/03/16 at 09:00; Status Future Hold Pantoprazole (Protonix Tab) 40 mg DAILY@06 PO Last administered on 12/15/16 05: 45; Admin Dose 40 MG; Start 12/03/16 at 06:00 Zolpidem Tartrate (Ambien) 5 mg HS PRN PO INSOMNIA Last administered on 00:45; Admin Dose 5 MG; Start 12/02/16 at 23:30 Benazepril HCl (Lotensin) 10 mg DAILY PO Last administered on 12/07/16 08:26; Admin Dose 10 MG; Start 12/04/16 at 09:00; Status Future Hold Insulin Glargine (Lantus) 25 unit DAILY SC Last administered on 12/13/16 08:47 ; Admin Dose 25 UNIT; Start 12/06/16 at 09:00; Status Future Hold Collagenase (Santyl) 1 applic DAILY TOP Last administered on 12/15/16 09:24; Admin Dose 1 APPLIC; Start 12/07/16 at 16:00 Lorazepam (Ativan) 2 mg Q2 PRN IV AGITATION/ANXIETY Last administered on 03:32; Admin Dose 1 MG; Start 12/09/16 at 09:30 Morphine Sulfate (morphine) 2 mg Q2H PRN IV PAIN Last administered on 12/13/16 02:00; Admin Dose 2 MG; Start 12/09/16 at 09:30 Acetaminophen 650 mg 650 mg Q6H PRN [place] ELEVATED TEMPERATURE Last administered on 12/09/16 17:53; Admin Dose 650 MG; Start 12/09/16 at 17:00 Piperacillin Sod/ Tazobactam Sod (Zosyn 2.25gm/ 50ml (Pmx)) 50 ml @ 100 mls/hr Q12 IVPB Last administered on 12/15/16 09:18; Admin Dose 100 MLS/HR; Start at 21:00 Metoprolol Tartrate 5 mg 5 mg Q4H PRN IV HR>100 Last administered on 12/10/16 22:23; Admin Dose 5 MG; Start 12/09/16 at 17:48 Phenylephrine HCl/ Dextrose (Fernandez-Syneph/D5W) 500 ml @ 75 mls/hr TITRATE IV Last administered on 12/13/16 15:21; Admin Dose 37.5 MLS/HR; Start 12/09/16 at 22:00 Amiodarone HCl (Cordarone) 200 mg BID PO Last administered on 12/15/16 09:19; Admin Dose 200 MG; Start 12/10/16 at 13:00 Hydralazine HCl (Apresoline) 10 mg Q6H PRN IV SBP>150mm hg ; Start 12/11/16 at 10:30 Metoprolol Tartrate (Lopressor) 25 mg BID PO Last administered on 12/12/16 20: 51; Admin Dose 25 MG; Start 12/11/16 at 21:00; Status Future Hold Morphine Sulfate 2 mg 2 mg Q2H PRN IV PAIN LEVEL 4-7; Start 12/13/16 at 10:00 Propofol 100 ml @ 2.544 mls/ hr Q12H IV Last administered on 12/15/16 05:34; Admin Dose 7.632 MLS/HR; Start 12/13/16 at 10:00 Linezolid (Zyvox 600mg/D5W (Pmx)) 300 ml @ 300 mls/hr Q12 IVPB Last administered on 12/15/16 09:18; Admin Dose 300 MLS/HR; Start 12/13/16 at 13:00 Insulin Aspart NOVOLOG *MODERATE* ALGORI... Q4 SC Last administered on 09:21; Admin Dose 2 UNIT; Start 12/14/16 at 09:00 Caspofungin 50 mg/ Sodium Chloride 250 ml @ 250 mls/hr Q24H IVPB ; Start at 11:00 Dextrose/Sodium Chloride (D5-1/2ns) 1,000 ml @ 70 mls/hr [id number] IV Last administered on 12/15/16 01:48; Admin Dose 70 MLS/HR; Start 12/14/16 at 11:30 Assessment/Plan Chief Complaint/Hosp Course IMPRESSION AND PLAN: 1. Acute kidney injury. On hemodialysis 2. Hypoxemic respiratory failure possibly secondary to aspiration pneumonia 3. Underlying pulmonary edema secondary to renal insufficiency with volume overload, possible loculated pleural effusion 4. Hypercapnic respiratory failure. 5. Diabetic foot ulcer 6. History of diabetes mellitus The patient will require 1. Continued mechanical ventilation. Not able to extubated from mechanical ventilation present, CT chest noncontrast may require thoracentesis and/or decortication 2. Renal recommendations. Hemodialysis today per nephrology, aggressive volume removal if tolerated 3. Antibiotics for aspiration pneumonia, ID recommendations 4. DVT and GI prophylaxis. 5. Wound care per vascular surgery and podiatry Disposition Continue ICU care Critical care time 40 minutes Family conference today overall prognosis guarded Problems: AUDELIA BARRIENTOS MD, FCCP December 15, 2016 10:21
[2016-12-15] MEDS ORDERED: SOD CHLORIDE 0.9% 250 ML IV* ONE (11:54)
[2016-12-15] MEDS: CASPOFUNGIN 50 MG in SOD CHLORIDE 0.9% 250 ML IVPB SCH (11:56)
--- NOTE | 2016-12-15 12:03 | PN ---
Date/Time of Note Date/Time of Note DATE: 12/15/16 TIME: 11:57 Assessment/Plan VTE Prophylaxis VTE Prophylaxis Intervention: SCD's Lines/Catheters IV Catheter Type (from [facility]): PICC Line Central line still needed: Yes Urinary Cath still in place: Yes Reason Cath still needed: urinary retention Assessment/Plan Chief Complaint/Hosp Course Assessment/Plan - Acute to subacute right occipital lobe ischemic infarct per CT, Dr Morris is following in neurology consultation. Will obtain MRI of the brain the patient is more stable. - Acute respiratory failure secondary to pulmonary edema, patient is currently intubated, on vent support. Dr. Alvarez is following from pulmonology standpoint. - Acute renal failure, Dr. Remy is following in nephrology consultation. Continue hemodialysis per nephrology. - Paroxysmal atrial fibrillation and positive troponin. Continue heparin drip per protocol. Dr. Cobian is following and cardiology consultation. - Hypotension, continued on pressors for hemodynamic support. - Diabetic foot ulcer of the left foot, Dr Lin is following in podiatry consultation. - Fungemia, om Caspofungin. Dr. Pascual is following in infection disease consultation. - Cellulitis of left foot, 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 and left fourth proximal phalanx per bone scan, continue antibiotics, Continue antibiotics per ID. - DM, continue NovoLog per sliding scale. - Aortic stenosis - Diastolic dysfunction congestive heart failure with preserved ejection fraction of 60%. - DM, Hgb A1c is 8.7 Family conference arrange for today. Further recommendations based on clinical course. Plan of care discussed with Dr. Heredia. Problems: Subjective 24 Hr Interval Summary Free Text/Dictation Patient weaned off pressor, continued on heparin drip and propofol for sedation , will start NG tube feeding, transfuse 1 unit of packed red blood cells with hemodialysis today for hemoglobin 7.9. Patient continued on ventilatory support. Exam/Review of Systems Vital Signs Vitals Vital Signs Date Time Temp Pulse Resp B/P Pulse Ox O2 Delivery O2 Flow Rate FiO2 12/15/16 11:30 61 18 116/54 99 Mechanical Ventilator 12/15/16 08:00 35 12/15/16 08:00 98.1 12/13/16 06:40 10.0 Intake and Output 12/14/16 12/14/16 12/15/16 15:00 23:00 07:00 Intake Total 552.056 ml 2337.292 ml 457.056 ml Output Total 2000 ml 5 ml 42 ml Balance -1447.944 ml 2332.292 ml 415.056 ml Exam Constitutional: Sedated, orally intubated on vent support Psych: no complaints Head: atraumatic, normocephalic Eyes: nl conjunctiva ENMT: nl external ears & nose Neck: non-tender, supple Respiratory: clear to auscultation, normal air movement Cardiovascular: nl pulses, regular rate and rhythm, systolic murmur Gastrointestinal: non-tender, soft Genitourinary - Male: nl penis Musculoskeletal: nl extremities to inspection Extremities: normal pulses Neurological: INSTRUMENT REPAIR SPECIALIST II-XII intact Skin: nl turgor, left big toe ulcer. Results Result Diagram: 12/15/160 12/15/16 0400 Results 24 hrs Laboratory Tests Test 12/14/16 15:30 12/14/16 16:21 12/14/16 21:19 12/14/16 22:02 Activated Partial Thromboplast Time 61.6 H 58.3 H Bedside Glucose 136 171 Test 12/15/16 01:58 12/15/16 04:00 12/15/16 05:41 12/15/16 07:00 Bedside Glucose 209 192 White Blood Count 7.7 Red Blood Count 2.52 L Hemoglobin 7.9 L Hematocrit 24.0 L Mean Corpuscular Volume 95.2 Mean Corpuscular Hemoglobin 31.3 Mean Corpuscular Hemoglobin Concent 32.9 Red Cell Distribution Width 12.5 Platelet Count 184 Mean Platelet Volume 10.3 Neutrophils % 76.0 Lymphocytes % 10.4 L Monocytes % 11.6 H Eosinophils % 0.8 Basophils % 0.4 Nucleated Red Blood Cells % 0.0 Neutrophils # 5.8 Lymphocytes # 0.8 Monocytes # 0.9 Eosinophils # 0.1 Basophils # 0.0 Nucleated Red Blood Cells # 0.0 Activated Partial Thromboplast Time 58.6 H Sodium Level 133 L Potassium Level 3.5 Chloride Level 96 L Carbon Dioxide Level 26 Anion Gap 15 Blood Urea Nitrogen 24 H Creatinine 6.14 H Glucose Level 170 Calcium Level 7.2 L Phosphorus Level 6.1 H Magnesium Level 1.9 Blood Gas Specimen Source Blood arterial Arterial Blood Date Drawn 12/15/2016 7:50:11 AM Arterial Blood pH (Temp corrected) 7.476 H Arterial Blood pCO2 (Temp correct) 31.3 L Arterial Blood pO2 (Temp corrected) 107.1 H Arterial Blood HCO3 22.6 Arterial Blood Base Excess -0.5 Arterial Blood Oxygen Saturation 97.7 Derek Test ACCEPTAB Arterial Blood Gas Puncture Site Right Radial Arterial Blood Carboxyhemoglobin 0.3 Arterial Blood Methemoglobin 0.4 Blood Gas A-a O2 Differential 106.1 H Oxyhemoglobin Percent 97.0 Total Hemoglobin 9.3 L Blood Gas Temperature 37.0 Blood Gas Respiration Rate 18.0 Blood Gas Actual Respiration Rate 18 Blood Gas Modality VENT - AC FiO2 35.0 Blood Gas Tidal Volume 550.0 Blood Gas Low PEEP Setting 5.0 Blood Gas Notified Whom JLD Blood Gas Notified Time 12/15/2016 8:08:57 AM Test 12/15/16 09:12 Bedside Glucose 176 Medications Medications Current Medications Diagnostic Test (Pha) (Accu-Chek) 1 ea 02 XX Last administered on 12/15/16 02: 02; Admin Dose 1 EA; Start 12/03/16 at 02:00 Ondansetron HCl (Zofran Inj) 4 mg Q6H PRN IV NAUSEA AND/OR VOMITING Last administered on 12/13/16 01:13; Admin Dose 4 MG; Start 12/02/16 at 22:30 Miscellaneous Information 1 ea NOTE XX ; Start 12/02/16 at 23:00 Glucose (Glutose) 15 gm Q15M PRN PO DECREASED GLUCOSE; Start 12/02/16 at 23:00 Glucose (Glutose) 22.5 gm Q15M PRN PO DECREASED GLUCOSE; Start 12/02/16 at 23: 00 Dextrose (D50w Syringe) 25 ml Q15M PRN IV DECREASED GLUCOSE Last administered on 12/10/16 05:52; Admin Dose 25 ML; Start 12/02/16 at 23:00 Dextrose (D50w Syringe) 50 ml Q15M PRN IV DECREASED GLUCOSE; Start 12/02/16 at 23:00 Glucagon (Glucagen) 1 mg Q15M PRN IM DECREASED GLUCOSE; Start 12/02/16 at 23:00 Glucose (Glutose) 15 gm Q15M PRN BUCCAL DECREASED GLUCOSE; Start 12/02/16 at 23 :00 Aspirin (Halfprin) 81 mg DAILY PO Last administered on 12/15/16 09:18; Admin Dose 81 MG; Start 12/03/16 at 09:00 Gabapentin (Neurontin) 800 mg TID PO Last administered on 12/08/16 20:33; Admin Dose 800 MG; Start 12/03/16 at 09:00; Status Future Hold Meclizine HCl (Antivert) 25 mg TID PRN PO dizziness Last administered on 10:04; Admin Dose 25 MG; Start 12/02/16 at 23:00 Terazosin HCl (Hytrin) 5 mg HS PO Last administered on 12/07/16 20:28; Admin Dose 5 MG; Start 12/03/16 at 21:00; Status Future Hold Acetaminophen/ Hydrocodone Bitart ([place] (5/325)) 1 tab Q6H PRN PO PAIN LEVEL 4 -7 Last administered on 12/10/16 21:31; Admin Dose 1 TAB; Start 12/02/16 at 23: 30 Acetaminophen (Tylenol Tab) 650 mg Q6H PRN PO PAIN AND OR ELEVATED TEMP; Start 12/02/16 at 23:30 Docusate Sodium (Colace) 100 mg BID PO Last administered on 12/08/16 20:32; Admin Dose 100 MG; Start 12/03/16 at 09:00; Status Future Hold Pantoprazole (Protonix Tab) 40 mg DAILY@06 PO Last administered on 12/15/16 05: 45; Admin Dose 40 MG; Start 12/03/16 at 06:00 Zolpidem Tartrate (Ambien) 5 mg HS PRN PO INSOMNIA Last administered on 00:45; Admin Dose 5 MG; Start 12/02/16 at 23:30 Benazepril HCl (Lotensin) 10 mg DAILY PO Last administered on 12/07/16 08:26; Admin Dose 10 MG; Start 12/04/16 at 09:00; Status Future Hold Insulin Glargine (Lantus) 25 unit DAILY SC Last administered on 12/13/16 08:47 ; Admin Dose 25 UNIT; Start 12/06/16 at 09:00; Status Future Hold Collagenase (Santyl) 1 applic DAILY TOP Last administered on 12/15/16 09:24; Admin Dose 1 APPLIC; Start 12/07/16 at 16:00 Lorazepam (Ativan) 2 mg Q2 PRN IV AGITATION/ANXIETY Last administered on 03:32; Admin Dose 1 MG; Start 12/09/16 at 09:30 Morphine Sulfate (morphine) 2 mg Q2H PRN IV PAIN Last administered on 12/13/16 02:00; Admin Dose 2 MG; Start 12/09/16 at 09:30 Acetaminophen 650 mg 650 mg Q6H PRN [place] ELEVATED TEMPERATURE Last administered on 12/09/16 17:53; Admin Dose 650 MG; Start 12/09/16 at 17:00 Piperacillin Sod/ Tazobactam Sod (Zosyn 2.25gm/ 50ml (Pmx)) 50 ml @ 100 mls/hr Q12 IVPB Last administered on 12/15/16 09:18; Admin Dose 100 MLS/HR; Start at 21:00 Metoprolol Tartrate 5 mg 5 mg Q4H PRN IV HR>100 Last administered on 12/10/16 22:23; Admin Dose 5 MG; Start 12/09/16 at 17:48 Phenylephrine HCl/ Dextrose (Fernandez-Syneph/D5W) 500 ml @ 75 mls/hr TITRATE IV Last administered on 12/13/16 15:21; Admin Dose 37.5 MLS/HR; Start 12/09/16 at 22:00 Amiodarone HCl (Cordarone) 200 mg BID PO Last administered on 12/15/16 09:19; Admin Dose 200 MG; Start 12/10/16 at 13:00 Hydralazine HCl (Apresoline) 10 mg Q6H PRN IV SBP>150mm hg ; Start 12/11/16 at 10:30 Metoprolol Tartrate (Lopressor) 25 mg BID PO Last administered on 12/12/16 20: 51; Admin Dose 25 MG; Start 12/11/16 at 21:00; Status Future Hold Morphine Sulfate 2 mg 2 mg Q2H PRN IV PAIN LEVEL 4-7; Start 12/13/16 at 10:00 Propofol 100 ml @ 2.544 mls/ hr Q12H IV Last administered on 12/15/16 05:34; Admin Dose 7.632 MLS/HR; Start 12/13/16 at 10:00 Linezolid (Zyvox 600mg/D5W (Pmx)) 300 ml @ 300 mls/hr Q12 IVPB Last administered on 12/15/16 09:18; Admin Dose 300 MLS/HR; Start 12/13/16 at 13:00 Insulin Aspart NOVOLOG *MODERATE* ALGORI... Q4 SC Last administered on 09:21; Admin Dose 2 UNIT; Start 12/14/16 at 09:00 Caspofungin 50 mg/ Sodium Chloride 250 ml @ 250 mls/hr Q24H IVPB ; Start at 11:00 Dextrose/Sodium Chloride (D5-1/2ns) 1,000 ml @ 70 mls/hr [id number] IV Last administered on 12/15/16 07:00; Admin Dose 70 MLS/HR; Start 12/14/16 at 11:30 KIMBERLY NOYOLA December 15, 2016 12:03
[2016-12-15] MEDS: HEPARIN 25000 UNITS/250 ML 250 ML IV SCH (13:46)
--- NOTE | 2016-12-15 14:16 | RADRPT ---
PROCEDURE: CT CHEST WITHOUT CONTRAST CLINICAL INDICATION: Loculated right effusion. TECHNIQUE: Volumetrically acquired images of the thorax obtained without intravenous contrast were reformatted in the axial, coronal, and sagittal planes. CTDI = 15.9 mGy; DLP = 623 mGy-cm. One or more of the following dose reduction technique were used: Automatic exposure control, adjustment of the mA and/or kV according to patient size, and use of iterative reconstruction technique. COMPARISON: Chest x-ray from 12/15/2016. FINDINGS: LOWER NECK AND CHEST WALL: Normal. AIRWAYS: The trachea and large airways are normal. An endotracheal tube is in appropriate position . LUNGS: There is smooth intralobular septal thickening. A nonspecific 5 mm nodule is seen in the rig ht middle lobe. Dependent atelectasis is seen bilaterally. PLEURA: Moderate bilateral pleural effusions are seen with associated atelectasis. MEDIASTINUM: No mediastinal mass. LYMPH NODES: No significant axillary, hilar, or mediastinal lymphadenopathy by CT size criteria. CARDIAC: The heart size is normal. No pericardial effusion or thickening. Mitral annular calcificati ons are seen.Calcification of the aortic valve may sometimes be associated with aortic stenosis. VASCULAR: The aorta and main pulmonary artery are normal in caliber. Aortic and coronary atheroscl erotic calcifications are present. There is a left PICC terminating in the right atrium. OSSEOUS: No suspicious osseous lesions. Scattered degenerative changes of the thoracic spine is vis ualized. Limited evaluation of the upper abdomen demonstrates a nasogastric tube coursing into the stomach. There is trace perihepatic ascites. The spleen is enlarged measuring up to 17 cm.. IMPRESSION: 1. Evidence of congestive heart failure as evidenced by smooth intralobular septal thickening (venou s congestion) as well as moderate bilateral pleural effusions with associated atelectasis. Interc urrent process within the atelectatic lung cannot be excluded. 2. Aortic and coronary atherosclerosis. 3.Calcification of the aortic valve may sometimes be associated with aortic stenosis. 4. Nonspecific 5 mm nodule seen in the right middle lobe. Attention on follow-up scan is recommend ed. 5. Trace perihepatic ascites. 6. Splenomegaly. RPTAT:PP .Chacorta Genao MD, MD Date Time Electronically viewed and signed by .Chacorta Genao MD, MD on 12/15/2016 14:15 .V/
--- NOTE | 2016-12-15 15:52 | CONS ---
Date/Time of Note Date/Time of Note DATE: 12/15/16 TIME: 15:48 Assessment/Plan Assessment/Plan Chief Complaint/Hosp Course IMPRESSION: 1. Atrial fibrillation-currently in SR with PAC's 2. Hypotension-resolved off of fernandez 3. Abnormal electrocardiogram with inferolateral T-wave inversions. 4. Respiratory failure-s/p intubation and remains 5. Nonhealing toe ulceration. 6. Peripheral arterial disease by arterial ultrasound of the lower extremities this admission. 7. Diabetes mellitus. 8. Fevers. 9. Positive troponin-downtrended Recc: -Tele -serial ecg -wean fernandez and follow BP closely -HD for volume removal -Trend cardiac enzymes -Continue asa -Continue heparin given now PAF/positive troponin -Continue PO amio in attempt to maintain SR -low dose BB as tolerated only -Will consider LHC versus lexiscan when patient improved HD/stable Problems: Consultation Date/Type/Reason Admit Date/Time Dec 02, 2016 at 21:01 Initial Consult Date 12/03/16 Type of Consultation: Cardiology Reason for Consultation PAF Referring Provider: VIET PARKER MD Exam/Review of Systems Vital Signs Vitals Vital Signs Date Time Temp Pulse Resp B/P Pulse Ox O2 Delivery O2 Flow Rate FiO2 12/15/16 15:28 60 12/15/16 14:50 18 12/15/16 12:00 35 12/15/16 11:30 116/54 99 Mechanical Ventilator 12/15/16 08:00 98.1 12/13/16 06:40 10.0 Intake and Output 12/14/16 12/14/16 12/15/16 15:00 23:00 07:00 Intake Total 552.056 ml 2337.292 ml 457.056 ml Output Total 2000 ml 5 ml 42 ml Balance -1447.944 ml 2332.292 ml 415.056 ml Exam Review of Systems: CONSTITUTIONAL: No fevers, chills. PULMONARY: intubated CARDIOVASCULAR: No obvious chest pain/palpitations GASTROINTESTINAL: No nausea/vomiting. GENITOURINARY: No hematuria/dysuria. MUSCULOSKELETAL: No obvious myagias/arthalgias. PSYCHIATRIC: No documented depression. NEUROLOGIC: sedated Constitutional: other (sedated) Psych: no complaints Head: normocephalic ENMT: intubated, mucosa pink and moist Neck: jvd (9 cm water), supple Respiratory: diminished breath sounds (at bases/B) Cardiovascular: regular rate and rhythm Gastrointestinal: non-tender, soft Musculoskeletal: muscle tone (normal) Extremities: pitting pedal edema (bilateral) Neurological: other (sedated) Results Result Diagram: 12/15/16 0400 12/15/16 0400 Results 24 hrs Laboratory Tests Test 12/14/16 16:21 12/14/16 21:19 12/14/16 22:02 12/15/16 01:58 Bedside Glucose 136 171 209 Activated Partial Thromboplast Time 58.3 H Test 12/15/16 04:00 12/15/16 05:41 12/15/16 07:00 12/15/16 09:12 White Blood Count 7.7 Red Blood Count 2.52 L Hemoglobin 7.9 L Hematocrit 24.0 L Mean Corpuscular Volume 95.2 Mean Corpuscular Hemoglobin 31.3 Mean Corpuscular Hemoglobin Concent 32.9 Red Cell Distribution Width 12.5 Platelet Count 184 Mean Platelet Volume 10.3 Neutrophils % 76.0 Lymphocytes % 10.4 L Monocytes % 11.6 H Eosinophils % 0.8 Basophils % 0.4 Nucleated Red Blood Cells % 0.0 Neutrophils # 5.8 Lymphocytes # 0.8 Monocytes # 0.9 Eosinophils # 0.1 Basophils # 0.0 Nucleated Red Blood Cells # 0.0 Activated Partial Thromboplast Time 58.6 H Sodium Level 133 L Potassium Level 3.5 Chloride Level 96 L Carbon Dioxide Level 26 Anion Gap 15 Blood Urea Nitrogen 24 H Creatinine 6.14 H Glucose Level 170 Calcium Level 7.2 L Phosphorus Level 6.1 H Magnesium Level 1.9 Bedside Glucose 192 176 Blood Gas Specimen Source Blood arterial Arterial Blood Date Drawn 12/15/2016 7:50:11 AM Arterial Blood pH (Temp corrected) 7.476 H Arterial Blood pCO2 (Temp correct) 31.3 L Arterial Blood pO2 (Temp corrected) 107.1 H Arterial Blood HCO3 22.6 Arterial Blood Base Excess -0.5 Arterial Blood Oxygen Saturation 97.7 Derek Test ACCEPTAB Arterial Blood Gas Puncture Site Right Radial Arterial Blood Carboxyhemoglobin 0.3 Arterial Blood Methemoglobin 0.4 Blood Gas A-a O2 Differential 106.1 H Oxyhemoglobin Percent 97.0 Total Hemoglobin 9.3 L Blood Gas Temperature 37.0 Blood Gas Respiration Rate 18.0 Blood Gas Actual Respiration Rate 18 Blood Gas Modality VENT - AC FiO2 35.0 Blood Gas Tidal Volume 550.0 Blood Gas Low PEEP Setting 5.0 Blood Gas Notified Whom JLD Blood Gas Notified Time 12/15/2016 8:08:57 AM Test 12/15/16 13:00 Bedside Glucose 233 H Medications Medications Current Medications Diagnostic Test (Pha) (Accu-Chek) 1 ea 02 XX Last administered on 12/15/16 02: 02; Admin Dose 1 EA; Start 12/03/16 at 02:00 Ondansetron HCl (Zofran Inj) 4 mg Q6H PRN IV NAUSEA AND/OR VOMITING Last administered on 12/13/16 01:13; Admin Dose 4 MG; Start 12/02/16 at 22:30 Miscellaneous Information 1 ea NOTE XX ; Start 12/02/16 at 23:00 Glucose (Glutose) 15 gm Q15M PRN PO DECREASED GLUCOSE; Start 12/02/16 at 23:00 Glucose (Glutose) 22.5 gm Q15M PRN PO DECREASED GLUCOSE; Start 12/02/16 at 23: 00 Dextrose (D50w Syringe) 25 ml Q15M PRN IV DECREASED GLUCOSE Last administered on 12/10/16 05:52; Admin Dose 25 ML; Start 12/02/16 at 23:00 Dextrose (D50w Syringe) 50 ml Q15M PRN IV DECREASED GLUCOSE; Start 12/02/16 at 23:00 Glucagon (Glucagen) 1 mg Q15M PRN IM DECREASED GLUCOSE; Start 12/02/16 at 23:00 Glucose (Glutose) 15 gm Q15M PRN BUCCAL DECREASED GLUCOSE; Start 12/02/16 at 23 :00 Aspirin (Halfprin) 81 mg DAILY PO Last administered on 12/15/16 09:18; Admin Dose 81 MG; Start 12/03/16 at 09:00 Gabapentin (Neurontin) 800 mg TID PO Last administered on 12/08/16 20:33; Admin Dose 800 MG; Start 12/03/16 at 09:00; Status Future Hold Meclizine HCl (Antivert) 25 mg TID PRN PO dizziness Last administered on 10:04; Admin Dose 25 MG; Start 12/02/16 at 23:00 Terazosin HCl (Hytrin) 5 mg HS PO Last administered on 12/07/16 20:28; Admin Dose 5 MG; Start 12/03/16 at 21:00; Status Future Hold Acetaminophen/ Hydrocodone Bitart ([place] (5/325)) 1 tab Q6H PRN PO PAIN LEVEL 4 -7 Last administered on 12/10/16 21:31; Admin Dose 1 TAB; Start 12/02/16 at 23: 30 Acetaminophen (Tylenol Tab) 650 mg Q6H PRN PO PAIN AND OR ELEVATED TEMP; Start 12/02/16 at 23:30 Docusate Sodium (Colace) 100 mg BID PO Last administered on 12/08/16 20:32; Admin Dose 100 MG; Start 12/03/16 at 09:00; Status Future Hold Pantoprazole (Protonix Tab) 40 mg DAILY@06 PO Last administered on 12/15/16 05: 45; Admin Dose 40 MG; Start 12/03/16 at 06:00 Zolpidem Tartrate (Ambien) 5 mg HS PRN PO INSOMNIA Last administered on 00:45; Admin Dose 5 MG; Start 12/02/16 at 23:30 Benazepril HCl (Lotensin) 10 mg DAILY PO Last administered on 12/07/16 08:26; Admin Dose 10 MG; Start 12/04/16 at 09:00; Status Future Hold Insulin Glargine (Lantus) 25 unit DAILY SC Last administered on 12/13/16 08:47 ; Admin Dose 25 UNIT; Start 12/06/16 at 09:00; Status Future Hold Collagenase (Santyl) 1 applic DAILY TOP Last administered on 12/15/16 09:24; Admin Dose 1 APPLIC; Start 12/07/16 at 16:00 Lorazepam (Ativan) 2 mg Q2 PRN IV AGITATION/ANXIETY Last administered on 03:32; Admin Dose 1 MG; Start 12/09/16 at 09:30 Morphine Sulfate (morphine) 2 mg Q2H PRN IV PAIN Last administered on 12/13/16 02:00; Admin Dose 2 MG; Start 12/09/16 at 09:30 Acetaminophen 650 mg 650 mg Q6H PRN [place] ELEVATED TEMPERATURE Last administered on 12/09/16 17:53; Admin Dose 650 MG; Start 12/09/16 at 17:00 Piperacillin Sod/ Tazobactam Sod (Zosyn 2.25gm/ 50ml (Pmx)) 50 ml @ 100 mls/hr Q12 IVPB Last administered on 12/15/16 09:18; Admin Dose 100 MLS/HR; Start at 21:00 Metoprolol Tartrate 5 mg 5 mg Q4H PRN IV HR>100 Last administered on 12/10/16 22:23; Admin Dose 5 MG; Start 12/09/16 at 17:48 Phenylephrine HCl/ Dextrose (Fernandez-Syneph/D5W) 500 ml @ 75 mls/hr TITRATE IV Last administered on 12/13/16 15:21; Admin Dose 37.5 MLS/HR; Start 12/09/16 at 22:00 Amiodarone HCl (Cordarone) 200 mg BID PO Last administered on 12/15/16 09:19; Admin Dose 200 MG; Start 12/10/16 at 13:00 Hydralazine HCl (Apresoline) 10 mg Q6H PRN IV SBP>150mm hg ; Start 12/11/16 at 10:30 Metoprolol Tartrate (Lopressor) 25 mg BID PO Last administered on 12/12/16 20: 51; Admin Dose 25 MG; Start 12/11/16 at 21:00; Status Future Hold Morphine Sulfate 2 mg 2 mg Q2H PRN IV PAIN LEVEL 4-7; Start 12/13/16 at 10:00 Propofol 100 ml @ 2.544 mls/ hr Q12H IV Last administered on 12/15/16 05:34; Admin Dose 7.632 MLS/HR; Start 12/13/16 at 10:00 Linezolid (Zyvox 600mg/D5W (Pmx)) 300 ml @ 300 mls/hr Q12 IVPB Last administered on 12/15/16 09:18; Admin Dose 300 MLS/HR; Start 12/13/16 at 13:00 Insulin Aspart NOVOLOG *MODERATE* ALGORI... Q4 SC Last administered on 13:48; Admin Dose 6 UNIT; Start 12/14/16 at 09:00 Caspofungin 50 mg/ Sodium Chloride 250 ml @ 250 mls/hr Q24H IVPB Last administered on 12/15/16 11:56; Admin Dose 250 MLS/HR; Start 12/15/16 at 11:00 Dextrose/Sodium Chloride (D5-1/2ns) 1,000 ml @ 70 mls/hr [id number] IV Last administered on 12/15/16 11:57; Admin Dose 70 MLS/HR; Start 12/14/16 at 11:30 VICENTE LESLIE December 15, 2016 15:52
[2016-12-15] MEDS ORDERED: HEPARIN 1000 UNITS/ML 10 ML INJ CATHETER SCH (16:00)
--- NOTE | 2016-12-15 18:44 | CONS ---
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 and left fourth proximal phalanx - ARANZA, on HD from 12/09/2016 - A fib - troponin+ - DM - HTN recommendations: - pending: speciation of yeast in his blood culture, blood cultures from 2016 (both from HD catheter), wound culture, and resp culture - consider repeat transthoracic echo - continue caspofungin (12/14/2016-) - continue renally dosed pip/tazo (12/03/2016) and linezolid empirically (2016-) for diabetic foot infection - if blood cultures on 12/13/2016 grows yeast, I recommend d/c HD catheter - ultimately, Pt Pt needs 6 weeks of antibiotics to treat 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 and left fourth proximal phalanx: 2016 through 01/15/2017 management d/w Pt's RN the critical care time I took to care for this Pt today was from 1750 to 1830 Problems: Consultation Date/Type/Reason Admit Date/Time Dec 02, 2016 at 21:01 Initial Consult Date 12/03/16 Type of Consultation: ID Referring Provider: VIET PARKER MD 24 HR Interval Summary Subjective hx not possible: pt non-verbal, pt critical, pt critical status Exam/Review of Systems Vital Signs Vitals Vital Signs Date Time Temp Pulse Resp B/P Pulse Ox O2 Delivery O2 Flow Rate FiO2 12/15/16 18:03 58 18 100 35 12/15/16 15:30 140/57 Mechanical Ventilator 12/15/16 12:00 98.2 12/13/16 06:40 10.0 Intake and Output 12/14/16 12/14/16 12/15/16 15:00 23:00 07:00 Intake Total 552.056 ml 2337.292 ml 457.056 ml Output Total 2000 ml 5 ml 42 ml Balance -1447.944 ml 2332.292 ml 415.056 ml Exam Constitutional: frail, non-verbal Psych: confusion Head: normocephalic Eyes: nl conjunctiva, nl lids ENMT: intubated, nl external ears & nose, nl nasal mucosa & septum Respiratory: crackles/rales Cardiovascular: nl pulses, regular rate and rhythm Gastrointestinal: non-tender, soft Musculoskeletal: nl extremities to inspection Extremities: No edema Neurological: confused, lethargic Skin: rash or lesions (L 1st toe with eschar, no erythema non-TTP) Results Result Diagram: 12/15/16 0400 12/15/16 0400 Results 24 hrs Laboratory Tests Test 12/14/16 21:19 12/14/16 22:02 12/15/16 01:58 12/15/16 04:00 Bedside Glucose 171 209 Activated Partial Thromboplast Time 58.3 H 58.6 H White Blood Count 7.7 Red Blood Count 2.52 L Hemoglobin 7.9 L Hematocrit 24.0 L Mean Corpuscular Volume 95.2 Mean Corpuscular Hemoglobin 31.3 Mean Corpuscular Hemoglobin Concent 32.9 Red Cell Distribution Width 12.5 Platelet Count 184 Mean Platelet Volume 10.3 Neutrophils % 76.0 Lymphocytes % 10.4 L Monocytes % 11.6 H Eosinophils % 0.8 Basophils % 0.4 Nucleated Red Blood Cells % 0.0 Neutrophils # 5.8 Lymphocytes # 0.8 Monocytes # 0.9 Eosinophils # 0.1 Basophils # 0.0 Nucleated Red Blood Cells # 0.0 Sodium Level 133 L Potassium Level 3.5 Chloride Level 96 L Carbon Dioxide Level 26 Anion Gap 15 Blood Urea Nitrogen 24 H Creatinine 6.14 H Glucose Level 170 Calcium Level 7.2 L Phosphorus Level 6.1 H Magnesium Level 1.9 Test 12/15/16 05:41 12/15/16 07:00 12/15/16 09:12 12/15/16 13:00 Bedside Glucose 192 176 233 H Blood Gas Specimen Source Blood arterial Arterial Blood Date Drawn 12/15/2016 7:50:11 AM Arterial Blood pH (Temp corrected) 7.476 H Arterial Blood pCO2 (Temp correct) 31.3 L Arterial Blood pO2 (Temp corrected) 107.1 H Arterial Blood HCO3 22.6 Arterial Blood Base Excess -0.5 Arterial Blood Oxygen Saturation 97.7 Derek Test ACCEPTAB Arterial Blood Gas Puncture Site Right Radial Arterial Blood Carboxyhemoglobin 0.3 Arterial Blood Methemoglobin 0.4 Blood Gas A-a O2 Differential 106.1 H Oxyhemoglobin Percent 97.0 Total Hemoglobin 9.3 L Blood Gas Temperature 37.0 Blood Gas Respiration Rate 18.0 Blood Gas Actual Respiration Rate 18 Blood Gas Modality VENT - AC FiO2 35.0 Blood Gas Tidal Volume 550.0 Blood Gas Low PEEP Setting 5.0 Blood Gas Notified Whom JLD Blood Gas Notified Time 12/15/2016 8:08:57 AM Test 12/15/16 17:31 Bedside Glucose 166 Medications Medications Current Medications Diagnostic Test (Pha) (Accu-Chek) 1 ea 02 XX Last administered on 12/15/16 02: 02; Admin Dose 1 EA; Start 12/03/16 at 02:00 Ondansetron HCl (Zofran Inj) 4 mg Q6H PRN IV NAUSEA AND/OR VOMITING Last administered on 12/13/16 01:13; Admin Dose 4 MG; Start 12/02/16 at 22:30 Miscellaneous Information 1 ea NOTE XX ; Start 12/02/16 at 23:00 Glucose (Glutose) 15 gm Q15M PRN PO DECREASED GLUCOSE; Start 12/02/16 at 23:00 Glucose (Glutose) 22.5 gm Q15M PRN PO DECREASED GLUCOSE; Start 12/02/16 at 23: 00 Dextrose (D50w Syringe) 25 ml Q15M PRN IV DECREASED GLUCOSE Last administered on 12/10/16 05:52; Admin Dose 25 ML; Start 12/02/16 at 23:00 Dextrose (D50w Syringe) 50 ml Q15M PRN IV DECREASED GLUCOSE; Start 12/02/16 at 23:00 Glucagon (Glucagen) 1 mg Q15M PRN IM DECREASED GLUCOSE; Start 12/02/16 at 23:00 Glucose (Glutose) 15 gm Q15M PRN BUCCAL DECREASED GLUCOSE; Start 12/02/16 at 23 :00 Aspirin (Halfprin) 81 mg DAILY PO Last administered on 12/15/16 09:18; Admin Dose 81 MG; Start 12/03/16 at 09:00 Gabapentin (Neurontin) 800 mg TID PO Last administered on 12/08/16 20:33; Admin Dose 800 MG; Start 12/03/16 at 09:00; Status Future Hold Meclizine HCl (Antivert) 25 mg TID PRN PO dizziness Last administered on 10:04; Admin Dose 25 MG; Start 12/02/16 at 23:00 Terazosin HCl (Hytrin) 5 mg HS PO Last administered on 12/07/16 20:28; Admin Dose 5 MG; Start 12/03/16 at 21:00; Status Future Hold Acetaminophen/ Hydrocodone Bitart ([place] (5/325)) 1 tab Q6H PRN PO PAIN LEVEL 4 -7 Last administered on 12/10/16 21:31; Admin Dose 1 TAB; Start 12/02/16 at 23: 30 Acetaminophen (Tylenol Tab) 650 mg Q6H PRN PO PAIN AND OR ELEVATED TEMP; Start 12/02/16 at 23:30 Docusate Sodium (Colace) 100 mg BID PO Last administered on 12/08/16 20:32; Admin Dose 100 MG; Start 12/03/16 at 09:00; Status Future Hold Pantoprazole (Protonix Tab) 40 mg DAILY@06 PO Last administered on 12/15/16 05: 45; Admin Dose 40 MG; Start 12/03/16 at 06:00 Zolpidem Tartrate (Ambien) 5 mg HS PRN PO INSOMNIA Last administered on 00:45; Admin Dose 5 MG; Start 12/02/16 at 23:30 Benazepril HCl (Lotensin) 10 mg DAILY PO Last administered on 12/07/16 08:26; Admin Dose 10 MG; Start 12/04/16 at 09:00; Status Future Hold Insulin Glargine (Lantus) 25 unit DAILY SC Last administered on 12/13/16 08:47 ; Admin Dose 25 UNIT; Start 12/06/16 at 09:00; Status Future Hold Collagenase (Santyl) 1 applic DAILY TOP Last administered on 12/15/16 09:24; Admin Dose 1 APPLIC; Start 12/07/16 at 16:00 Lorazepam (Ativan) 2 mg Q2 PRN IV AGITATION/ANXIETY Last administered on 03:32; Admin Dose 1 MG; Start 12/09/16 at 09:30 Morphine Sulfate (morphine) 2 mg Q2H PRN IV PAIN Last administered on 12/13/16 02:00; Admin Dose 2 MG; Start 12/09/16 at 09:30 Acetaminophen 650 mg 650 mg Q6H PRN ID ELEVATED TEMPERATURE Last administered on 12/09/16 17:53; Admin Dose 650 MG; Start 12/09/16 at 17:00 Piperacillin Sod/ Tazobactam Sod (Zosyn 2.25gm/ 50ml (Pmx)) 50 ml @ 100 mls/hr Q12 IVPB Last administered on 12/15/16 09:18; Admin Dose 100 MLS/HR; Start at 21:00 Metoprolol Tartrate 5 mg 5 mg Q4H PRN IV HR>100 Last administered on 12/10/16 22:23; Admin Dose 5 MG; Start 12/09/16 at 17:48 Phenylephrine HCl/ Dextrose (Fernandez-Syneph/D5W) 500 ml @ 75 mls/hr TITRATE IV Last administered on 12/13/16 15:21; Admin Dose 37.5 MLS/HR; Start 12/09/16 at 22:00 Amiodarone HCl (Cordarone) 200 mg BID PO Last administered on 12/15/16 09:19; Admin Dose 200 MG; Start 12/10/16 at 13:00 Hydralazine HCl (Apresoline) 10 mg Q6H PRN IV SBP>150mm hg ; Start 12/11/16 at 10:30 Metoprolol Tartrate (Lopressor) 25 mg BID PO Last administered on 12/12/16 20: 51; Admin Dose 25 MG; Start 12/11/16 at 21:00; Status Future hold Morphine Sulfate 2 mg 2 mg Q2H PRN IV PAIN LEVEL 4-7; Start 12/13/16 at 10:00 Propofol 100 ml @ 2.544 mls/ hr Q12H IV Last administered on 12/15/16 05:34; Admin Dose 7.632 MLS/HR; Start 12/13/16 at 10:00 Linezolid (Zyvox 600mg/D5W (Pmx)) 300 ml @ 300 mls/hr Q12 IVPB Last administered on 12/15/16 09:18; Admin Dose 300 MLS/HR; Start 12/13/16 at 13:00 Insulin Aspart NOVOLOG *MODERATE* ALGORI... Q4 SC Last administered on 17:41; Admin Dose 2 UNIT; Start 12/14/16 at 09:00 Caspofungin 50 mg/ Sodium Chloride 250 ml @ 250 mls/hr Q24H IVPB Last administered on 12/15/16 11:56; Admin Dose 250 MLS/HR; Start 12/15/16 at 11:00 Dextrose/Sodium Chloride (D5-1/2ns) 1,000 ml @ 70 mls/hr [id number] IV Last administered on 12/15/16 11:57; Admin Dose 70 MLS/HR; Start 12/14/16 at 11:30 CHRISTY LOPEZ M.D. December 15, 2016 18:44
--- NOTE | 2016-12-15 19:25 | CONS ---
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 and left fourth proximal phalanx - ARANZA, on HD from 12/09/2016 - A fib - troponin+ - DM - HTN REVISED recommendations: - pending: speciation of yeast in his blood culture, blood cultures from 2016 (both from HD catheter), wound culture, and resp culture - consider repeat transthoracic echo - continue caspofungin (12/14/2016-) - continue renally dosed pip/tazo (12/03/2016) and linezolid empirically (2016-) for diabetic foot infection, and sepsis - if pancultures are unrevealing other than yeast, I will de-escalate his antibiotics - if blood cultures on 12/13/2016 grows yeast, I recommend d/c HD catheter - ultimately, Pt Pt needs 6 weeks of antibiotics to treat 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 and left fourth proximal phalanx: 2016 through 01/15/2017 management d/w Pt's RN the critical care time I took to care for this Pt today was from 1750 to 1830 Problems: Consultation Date/Type/Reason Admit Date/Time Dec 02, 2016 at 21:01 Initial Consult Date 12/03/16 Type of Consultation: ID Referring Provider: VIET PARKER MD Exam/Review of Systems Vital Signs Vitals Vital Signs Date Time Temp Pulse Resp B/P Pulse Ox O2 Delivery O2 Flow Rate FiO2 12/15/16 18:30 62 20 143/54 99 Mechanical Ventilator 12/15/16 18:03 35 12/15/16 18:00 98.5 12/13/16 06:40 10.0 Intake and Output 12/14/16 12/14/16 12/15/16 15:00 23:00 07:00 Intake Total 552.056 ml 2337.292 ml 457.056 ml Output Total 2000 ml 5 ml 42 ml Balance -1447.944 ml 2332.292 ml 415.056 ml Results Result Diagram: 12/15/16 0400 12/15/16 0400 Results 24 hrs Laboratory Tests Test 12/14/16 21:19 12/14/16 22:02 12/15/16 01:58 12/15/16 04:00 Bedside Glucose 171 209 Activated Partial Thromboplast Time 58.3 H 58.6 H White Blood Count 7.7 Red Blood Count 2.52 L Hemoglobin 7.9 L Hematocrit 24.0 L Mean Corpuscular Volume 95.2 Mean Corpuscular Hemoglobin 31.3 Mean Corpuscular Hemoglobin Concent 32.9 Red Cell Distribution Width 12.5 Platelet Count 184 Mean Platelet Volume 10.3 Neutrophils % 76.0 Lymphocytes % 10.4 L Monocytes % 11.6 H Eosinophils % 0.8 Basophils % 0.4 Nucleated Red Blood Cells % 0.0 Neutrophils # 5.8 Lymphocytes # 0.8 Monocytes # 0.9 Eosinophils # 0.1 Basophils # 0.0 Nucleated Red Blood Cells # 0.0 Sodium Level 133 L Potassium Level 3.5 Chloride Level 96 L Carbon Dioxide Level 26 Anion Gap 15 Blood Urea Nitrogen 24 H Creatinine 6.14 H Glucose Level 170 Calcium Level 7.2 L Phosphorus Level 6.1 H Magnesium Level 1.9 Test 12/15/16 05:41 12/15/16 07:00 12/15/16 09:12 12/15/16 13:00 Bedside Glucose 192 176 233 H Blood Gas Specimen Source Blood arterial Arterial Blood Date Drawn 12/15/2016 7:50:11 AM Arterial Blood pH (Temp corrected) 7.476 H Arterial Blood pCO2 (Temp correct) 31.3 L Arterial Blood pO2 (Temp corrected) 107.1 H Arterial Blood HCO3 22.6 Arterial Blood Base Excess -0.5 Arterial Blood Oxygen Saturation 97.7 Derek Test ACCEPTAB Arterial Blood Gas Puncture Site Right Radial Arterial Blood Carboxyhemoglobin 0.3 Arterial Blood Methemoglobin 0.4 Blood Gas A-a O2 Differential 106.1 H Oxyhemoglobin Percent 97.0 Total Hemoglobin 9.3 L Blood Gas Temperature 37.0 Blood Gas Respiration Rate 18.0 Blood Gas Actual Respiration Rate 18 Blood Gas Modality VENT - AC FiO2 35.0 Blood Gas Tidal Volume 550.0 Blood Gas Low PEEP Setting 5.0 Blood Gas Notified Whom JLD Blood Gas Notified Time 12/15/2016 8:08:57 AM Test 12/15/16 17:31 Bedside Glucose 166 Medications Medications Current Medications Diagnostic Test (Pha) (Accu-Chek) 1 ea 02 XX Last administered on 12/15/16 02: 02; Admin Dose 1 EA; Start 12/03/16 at 02:00 Ondansetron HCl (Zofran Inj) 4 mg Q6H PRN IV NAUSEA AND/OR VOMITING Last administered on 12/13/16 01:13; Admin Dose 4 MG; Start 12/02/16 at 22:30 Miscellaneous Information 1 ea NOTE XX ; Start 12/02/16 at 23:00 Glucose (Glutose) 15 gm Q15M PRN PO DECREASED GLUCOSE; Start 12/02/16 at 23:00 Glucose (Glutose) 22.5 gm Q15M PRN PO DECREASED GLUCOSE; Start 12/02/16 at 23: 00 Dextrose (D50w Syringe) 25 ml Q15M PRN IV DECREASED GLUCOSE Last administered on 12/10/16 05:52; Admin Dose 25 ML; Start 12/02/16 at 23:00 Dextrose (D50w Syringe) 50 ml Q15M PRN IV DECREASED GLUCOSE; Start 12/02/16 at 23:00 Glucagon (Glucagen) 1 mg Q15M PRN IM DECREASED GLUCOSE; Start 12/02/16 at 23:00 Glucose (Glutose) 15 gm Q15M PRN BUCCAL DECREASED GLUCOSE; Start 12/02/16 at 23 :00 Aspirin (Halfprin) 81 mg DAILY PO Last administered on 12/15/16 09:18; Admin Dose 81 MG; Start 12/03/16 at 09:00 Gabapentin (Neurontin) 800 mg TID PO Last administered on 12/08/16 20:33; Admin Dose 800 MG; Start 12/03/16 at 09:00; Status Future Hold Meclizine HCl (Antivert) 25 mg TID PRN PO dizziness Last administered on 10:04; Admin Dose 25 MG; Start 12/02/16 at 23:00 Terazosin HCl (Hytrin) 5 mg HS PO Last administered on 12/07/16 20:28; Admin Dose 5 MG; Start 12/03/16 at 21:00; Status Future Hold Acetaminophen/ Hydrocodone Bitart ([place] (5/325)) 1 tab Q6H PRN PO PAIN LEVEL 4 -7 Last administered on 12/10/16 21:31; Admin Dose 1 TAB; Start 12/02/16 at 23: 30 Acetaminophen (Tylenol Tab) 650 mg Q6H PRN PO PAIN AND OR ELEVATED TEMP; Start 12/02/16 at 23:30 Docusate Sodium (Colace) 100 mg BID PO Last administered on 12/08/16 20:32; Admin Dose 100 MG; Start 12/03/16 at 09:00; Status Future Hold Pantoprazole (Protonix Tab) 40 mg DAILY@06 PO Last administered on 12/15/16 05: 45; Admin Dose 40 MG; Start 12/03/16 at 06:00 Zolpidem Tartrate (Ambien) 5 mg HS PRN PO INSOMNIA Last administered on 00:45; Admin Dose 5 MG; Start 12/02/16 at 23:30 Benazepril HCl (Lotensin) 10 mg DAILY PO Last administered on 12/07/16 08:26; Admin Dose 10 MG; Start 12/04/16 at 09:00; Status Future Hold Insulin Glargine (Lantus) 25 unit DAILY SC Last administered on 12/13/16 08:47 ; Admin Dose 25 UNIT; Start 12/06/16 at 09:00; Status Future Hold Collagenase (Santyl) 1 applic DAILY TOP Last administered on 12/15/16 09:24; Admin Dose 1 APPLIC; Start 12/07/16 at 16:00 Lorazepam (Ativan) 2 mg Q2 PRN IV AGITATION/ANXIETY Last administered on 03:32; Admin Dose 1 MG; Start 12/09/16 at 09:30 Morphine Sulfate (morphine) 2 mg Q2H PRN IV PAIN Last administered on 12/13/16 02:00; Admin Dose 2 MG; Start 12/09/16 at 09:30 Acetaminophen 650 mg 650 mg Q6H PRN [place] ELEVATED TEMPERATURE Last administered on 12/09/16 17:53; Admin Dose 650 MG; Start 12/09/16 at 17:00 Piperacillin Sod/ Tazobactam Sod (Zosyn 2.25gm/ 50ml (Pmx)) 50 ml @ 100 mls/hr Q12 IVPB Last administered on 12/15/16 09:18; Admin Dose 100 MLS/HR; Start at 21:00 Metoprolol Tartrate 5 mg 5 mg Q4H PRN IV HR>100 Last administered on 12/10/16 22:23; Admin Dose 5 MG; Start 12/09/16 at 17:48 Phenylephrine HCl/ Dextrose (Fernandez-Syneph/D5W) 500 ml @ 75 mls/hr TITRATE IV Last administered on 12/13/16 15:21; Admin Dose 37.5 MLS/HR; Start 12/09/16 at 22:00 Amiodarone HCl (Cordarone) 200 mg BID PO Last administered on 12/15/16 09:19; Admin Dose 200 MG; Start 12/10/16 at 13:00 Hydralazine HCl (Apresoline) 10 mg Q6H PRN IV SBP>150mm hg ; Start 12/11/16 at 10:30 Metoprolol Tartrate (Lopressor) 25 mg BID PO Last administered on 12/12/16 20: 51; Admin Dose 25 MG; Start 12/11/16 at 21:00; Status Future hold Morphine Sulfate 2 mg 2 mg Q2H PRN IV PAIN LEVEL 4-7; Start 12/13/16 at 10:00 Propofol 100 ml @ 2.544 mls/ hr Q12H IV Last administered on 12/15/16 18:58; Admin Dose 7.632 MLS/HR; Start 12/13/16 at 10:00 Linezolid (Zyvox 600mg/D5W (Pmx)) 300 ml @ 300 mls/hr Q12 IVPB Last administered on 12/15/16 09:18; Admin Dose 300 MLS/HR; Start 12/13/16 at 13:00 Insulin Aspart NOVOLOG *MODERATE* ALGORI... Q4 SC Last administered on 17:41; Admin Dose 2 UNIT; Start 12/14/16 at 09:00 Caspofungin/ Sodium Chloride (Cancidas/NS) 250 ml @ 250 mls/hr Q24H IVPB Last administered on 5/3/17at 11:56; Admin Dose 250 MLS/HR; Start 12/15/16 at 11:00 CHRISTY LOPEZ M.D. December 15, 2016 19:24
[2016-12-16] VITALS (59 sets, daily range): BP systolic 92–151; BP diastolic 40–70; PULSE 53–72; RESP 0–21
[2016-12-16] MEDS: INSULIN ASPART [NOVOLOG] 3 ML PEN SC SCH ×6 (01:09→21:01)
[2016-12-16] MEDS: ACCU-CHEK XX SCH (01:14)
[2016-12-16] MEDS: PROPOFOL 100 ML IV SCH ×3 (04:55→20:50)
[2016-12-16] MEDS: HEPARIN 25000 UNITS/250 ML 250 ML IV SCH (04:56)
[2016-12-16] MEDS: PANTOPRAZOLE (EC) 40 MG TAB PO SCH (05:28)
[2016-12-16 05:30] LABS: ADD SCAN DIFF NO
[2016-12-16 05:46] LABS: BASOPHIL # 0.1 10^3/ul (0.0-0.1); BASOPHILS % 0.5 % (0.0-2.0); EOSINOPHILS # 0.1 10^3/ul (0.0-0.5); HEMATOCRIT 26.1 % (42.0-52.0); HEMOGLOBIN 8.8 g/dl (14.0-18.0); LYMPHOCYTES # 0.7 10^3/ul (0.8-2.9); LYMPHOCYTES % 7.4 % (15.0-51.0); MEAN CORPUSCULAR HEMOGLOBIN 31.7 pg (29.0-33.0); MEAN CORPUSCULAR HGB CONC 33.7 g/dl (32.0-37.0); MEAN CORPUSCULAR VOLUME 93.9 fl (82.0-101.0); MONOCYTE # 0.9 10^3/ul (0.3-0.9); MONOCYTES % 10.1 % (0.0-11.0); NEUTROPHIL # 7.5 10^3/ul (1.6-7.5); NEUTROPHILS % 80.4 % (39.0-77.0); PLATELET COUNT 199 10^3/UL (140-415); RED BLOOD COUNT 2.78 10^6/ul (4.70-6.10); RED CELL DISTRIBUTION WIDTH 13.2 % (11.5-14.5); WHITE BLOOD COUNT 9.3 10^3/ul (4.8-10.8)
[2016-12-16 05:53] LABS: CALCIUM 7.3 mg/dl (8.4-10.2); CREATININE 5.36 mg/dl (0.61-1.24); MAGNESIUM 1.9 mg/dl (1.7-2.5); PHOSPHORUS 5.8 mg/dl (2.5-4.9); POTASSIUM 3.2 mmol/L (3.5-5.1)
--- NOTE | 2016-12-16 08:28 | CONS ---
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 superficial swab grew inna only - ARANZA, on HD from 12/09/2016 - A fib - troponin+ - DM - HTN recommendations: - pending blood cultures from 12/13/2016 (both from HD catheter) - requested sensitivity of C. glabrata for flucon, caspo and voriconazole via fax on 12/16/2016 (requested by Reinaldo at [facility]) - consider repeat transthoracic echo - continue caspofungin (12/14/2016-) - continue renally dosed pip/tazo (12/03/2016) empirically for diabetic foot infection, and sepsis - d/c linezolid (12/13/2016-) - if blood cultures on 12/13/2016 grows yeast, I recommend d/c HD catheter - ultimately, Pt Pt needs 6 weeks of antibiotics to treat 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 and left fourth proximal phalanx: 2016 through 01/15/2017 management d/w Pt's RN the critical care time I took to care for this Pt today was from 0745 to 0830 Problems: Consultation Date/Type/Reason Admit Date/Time Dec 02, 2016 at 21:01 Initial Consult Date 12/03/16 Type of Consultation: ID Referring Provider: VIET PARKER MD 24 HR Interval Summary Subjective hx not possible: pt non-verbal, pt critical, pt critical status Exam/Review of Systems Vital Signs Vitals Vital Signs Date Time Temp Pulse Resp B/P Pulse Ox O2 Delivery O2 Flow Rate FiO2 12/16/16 08:00 99.0 72 18 145/69 100 Mechanical Ventilator 12/16/16 05:10 35 12/13/16 06:40 10.0 Intake and Output 12/15/16 12/15/16 12/16/16 15:00 23:00 07:00 Intake Total 1267.320 ml 1856.880 ml 449.924 ml Output Total 10 ml 4110 ml 36 ml Balance 1257.320 ml -2253.120 ml 413.924 ml Exam Constitutional: non-verbal Psych: confusion Head: atraumatic, normocephalic Eyes: nl conjunctiva, nl lids, nl sclera ENMT: intubated, nl external ears & nose, nl nasal mucosa & septum, other (NGT) Respiratory: crackles/rales, other (coarse) Cardiovascular: nl pulses, regular rate and rhythm Gastrointestinal: non-tender, soft Musculoskeletal: nl extremities to inspection Extremities: edema (trace) Neurological: lethargic, other (sedated) Skin: rash or lesions (L 1st toe with eschar) Results Result Diagram: 12/16/16 0515 12/16/16 0515 Results 24 hrs Laboratory Tests Test 12/15/16 09:12 12/15/16 13:00 12/15/16 17:31 12/15/16 20:53 Bedside Glucose 176 233 H 166 201 Test 12/16/16 01:08 12/16/16 04:53 12/16/16 05:09 12/16/16 05:15 Bedside Glucose 184 187 Lab Scanned Report BLOOD TRANSFUSION White Blood Count 9.3 # Red Blood Count 2.78 L Hemoglobin 8.8 L Hematocrit 26.1 L Mean Corpuscular Volume 93.9 Mean Corpuscular Hemoglobin 31.7 Mean Corpuscular Hemoglobin Concent 33.7 Red Cell Distribution Width 13.2 Platelet Count 199 Mean Platelet Volume 10.0 Neutrophils % 80.4 H Lymphocytes % 7.4 L Monocytes % 10.1 Eosinophils % 1.0 Basophils % 0.5 Nucleated Red Blood Cells % 0.0 Neutrophils # 7.5 Lymphocytes # 0.7 L Monocytes # 0.9 Eosinophils # 0.1 Basophils # 0.1 Nucleated Red Blood Cells # 0.0 Activated Partial Thromboplast Time 58.6 H Sodium Level 129 L Potassium Level 3.2 L Chloride Level 96 L Carbon Dioxide Level 26 Anion Gap 10 # Blood Urea Nitrogen 21 H Creatinine 5.36 H Glucose Level 179 Calcium Level 7.3 L Phosphorus Level 5.8 H Magnesium Level 1.9 Medications Medications Current Medications Diagnostic Test (Pha) (Accu-Chek) 1 ea 02 XX Last administered on 12/16/16 01: 14; Admin Dose 1 EA; Start 12/03/16 at 02:00 Ondansetron HCl (Zofran Inj) 4 mg Q6H PRN IV NAUSEA AND/OR VOMITING Last administered on 12/13/16 01:13; Admin Dose 4 MG; Start 12/02/16 at 22:30 Miscellaneous Information 1 ea NOTE XX ; Start 12/02/16 at 23:00 Glucose (Glutose) 15 gm Q15M PRN PO DECREASED GLUCOSE; Start 12/02/16 at 23:00 Glucose (Glutose) 22.5 gm Q15M PRN PO DECREASED GLUCOSE; Start 12/02/16 at 23: 00 Dextrose (D50w Syringe) 25 ml Q15M PRN IV DECREASED GLUCOSE Last administered on 12/10/16 05:52; Admin Dose 25 ML; Start 12/02/16 at 23:00 Dextrose (D50w Syringe) 50 ml Q15M PRN IV DECREASED GLUCOSE; Start 12/02/16 at 23:00 Glucagon (Glucagen) 1 mg Q15M PRN IM DECREASED GLUCOSE; Start 12/02/16 at 23:00 Glucose (Glutose) 15 gm Q15M PRN BUCCAL DECREASED GLUCOSE; Start 12/02/16 at 23 :00 Aspirin (Halfprin) 81 mg DAILY PO Last administered on 12/15/16 09:18; Admin Dose 81 MG; Start 12/03/16 at 09:00 Gabapentin (Neurontin) 800 mg TID PO Last administered on 12/08/16 20:33; Admin Dose 800 MG; Start 12/03/16 at 09:00; Status Future Hold Meclizine HCl (Antivert) 25 mg TID PRN PO dizziness Last administered on 10:04; Admin Dose 25 MG; Start 12/02/16 at 23:00 Terazosin HCl (Hytrin) 5 mg HS PO Last administered on 12/07/16 20:28; Admin Dose 5 MG; Start 12/03/16 at 21:00; Status Future Hold Acetaminophen/ Hydrocodone Bitart ([place] (5/325)) 1 tab Q6H PRN PO PAIN LEVEL 4 -7 Last administered on 12/10/16 21:31; Admin Dose 1 TAB; Start 12/02/16 at 23: 30 Acetaminophen (Tylenol Tab) 650 mg Q6H PRN PO PAIN AND OR ELEVATED TEMP; Start 12/02/16 at 23:30 Docusate Sodium (Colace) 100 mg BID PO Last administered on 12/08/16 20:32; Admin Dose 100 MG; Start 12/03/16 at 09:00; Status Future Hold Pantoprazole (Protonix Tab) 40 mg DAILY@06 PO Last administered on 12/16/16 05: 28; Admin Dose 40 MG; Start 12/03/16 at 06:00 Zolpidem Tartrate (Ambien) 5 mg HS PRN PO INSOMNIA Last administered on 00:45; Admin Dose 5 MG; Start 12/02/16 at 23:30 Benazepril HCl (Lotensin) 10 mg DAILY PO Last administered on 12/07/16 08:26; Admin Dose 10 MG; Start 12/04/16 at 09:00; Status Future Hold Insulin Glargine (Lantus) 25 unit DAILY SC Last administered on 12/13/16 08:47 ; Admin Dose 25 UNIT; Start 12/06/16 at 09:00; Status Future Hold Collagenase (Santyl) 1 applic DAILY TOP Last administered on 12/15/16 09:24; Admin Dose 1 APPLIC; Start 12/07/16 at 16:00 Lorazepam (Ativan) 2 mg Q2 PRN IV AGITATION/ANXIETY Last administered on 03:32; Admin Dose 1 MG; Start 12/09/16 at 09:30 Morphine Sulfate (morphine) 2 mg Q2H PRN IV PAIN Last administered on 12/13/16 02:00; Admin Dose 2 MG; Start 12/09/16 at 09:30 Acetaminophen 650 mg 650 mg Q6H PRN [place] ELEVATED TEMPERATURE Last administered on 12/09/16 17:53; Admin Dose 650 MG; Start 12/09/16 at 17:00 Piperacillin Sod/ Tazobactam Sod (Zosyn 2.25gm/ 50ml (Pmx)) 50 ml @ 100 mls/hr Q12 IVPB Last administered on 12/15/16 20:40; Admin Dose 100 MLS/HR; Start at 21:00 Metoprolol Tartrate 5 mg 5 mg Q4H PRN IV HR>100 Last administered on 12/10/16 22:23; Admin Dose 5 MG; Start 12/09/16 at 17:48 Phenylephrine HCl/ Dextrose (Fernandez-Syneph/D5W) 500 ml @ 75 mls/hr TITRATE IV Last administered on 12/13/16 15:21; Admin Dose 37.5 MLS/HR; Start 12/09/16 at 22:00 Amiodarone HCl (Cordarone) 200 mg BID PO Last administered on 12/15/16 20:40; Admin Dose 200 MG; Start 12/10/16 at 13:00 Hydralazine HCl (Apresoline) 10 mg Q6H PRN IV SBP>150mm hg ; Start 12/11/16 at 10:30 Metoprolol Tartrate (Lopressor) 25 mg BID PO Last administered on 12/12/16 20: 51; Admin Dose 25 MG; Start 12/11/16 at 21:00; Status Future hold Morphine Sulfate 2 mg 2 mg Q2H PRN IV PAIN LEVEL 4-7; Start 12/13/16 at 10:00 Propofol 100 ml @ 2.544 mls/ hr Q12H IV Last administered on 12/16/16 04:55; Admin Dose 7.632 MLS/HR; Start 12/13/16 at 10:00 Linezolid (Zyvox 600mg/D5W (Pmx)) 300 ml @ 300 mls/hr Q12 IVPB Last administered on 12/15/16 20:40; Admin Dose 300 MLS/HR; Start 12/13/16 at 13:00 Insulin Aspart NOVOLOG *MODERATE* ALGORI... Q4 SC Last administered on 05:10; Admin Dose 4 UNIT; Start 12/14/16 at 09:00 Caspofungin/ Sodium Chloride (Cancidas/NS) 250 ml @ 250 mls/hr Q24H IVPB Last administered on 12/15/16 11:56; Admin Dose 250 MLS/HR; Start 12/15/16 at 11:00 CHRISTY LOPEZ M.D. December 16, 2016 08:28
[2016-12-16] MEDS: COLLAGENASE 30 GM TUBE TOP SCH (08:58)
[2016-12-16] MEDS: METOPROLOL 25 MG TAB PO SCH ×2 (09:00→20:55)
[2016-12-16] MEDS: PIPER-TAZO 2.25 GM (PMX) 50 ML IVPB SCH ×2 (09:18→20:55)
[2016-12-16] MEDS: ASPIRIN (EC) 81 MG TAB PO SCH (09:19)
[2016-12-16] MEDS: AMIODARONE 200 MG TAB PO SCH ×2 (09:19→20:56)
--- NOTE | 2016-12-16 09:26 | CONS ---
Date/Time of Note Date/Time of Note DATE: 12/16/16 TIME: 09:22 Consult Date/Type/Reason Admit Date/Time Dec 02, 2016 at 21:01 Initial Consult Date 12/03/16 Type of Consultation: Pulmonary ICU Ordering Provider: VIET PARKER MD Subjective Remains sedated on mechanical ventilation significant pulmonary edema on chest x -ray Objective Vital Signs Date Time Temp Pulse Resp B/P Pulse Ox O2 Delivery O2 Flow Rate FiO2 12/16/16 08:00 67 12/16/16 08:00 40 12/16/16 08:00 99.0 18 145/69 100 Mechanical Ventilator 12/13/16 06:40 10.0 Intake and Output 12/15/16 12/15/16 12/16/16 15:00 23:00 07:00 Intake Total 1267.320 ml 1856.880 ml 449.924 ml Output Total 10 ml 4110 ml 36 ml Balance 1257.320 ml -2253.120 ml 413.924 ml Exam PHYSICAL EXAMINATION: GENERAL: Elderly Arabic gentleman, intubated on mechanical ventilation, appears comfortable at rest, no acute distress. VITAL SIGNS: As above NECK: Supple. No JVD or lymphadenopathy. CARDIAC: S1, S2, no added sounds or murmurs. CHEST: Diminished air entry bilaterally. ABDOMEN: Soft, nontender. No guarding or rebound. EXTREMITIES: No cyanosis, clubbing, edema. NEUROLOGIC: Generalized weakness, but no focal deficits. Results/Medications Result Diagram: 12/16/16 0515 12/16/16 0515 Results [address] Significant bilateral effusions with compressive atelectasis Laboratory Tests Test 12/15/16 13:00 12/15/16 17:31 12/15/16 20:53 12/16/16 01:08 Bedside Glucose 233 H 166 201 184 Test 12/16/16 04:53 12/16/16 05:09 12/16/16 05:15 Lab Scanned Report BLOOD TRANSFUSION Bedside Glucose 187 White Blood Count 9.3 # Red Blood Count 2.78 L Hemoglobin 8.8 L Hematocrit 26.1 L Mean Corpuscular Volume 93.9 Mean Corpuscular Hemoglobin 31.7 Mean Corpuscular Hemoglobin Concent 33.7 Red Cell Distribution Width 13.2 Platelet Count 199 Mean Platelet Volume 10.0 Neutrophils % 80.4 H Lymphocytes % 7.4 L Monocytes % 10.1 Eosinophils % 1.0 Basophils % 0.5 Nucleated Red Blood Cells % 0.0 Neutrophils # 7.5 Lymphocytes # 0.7 L Monocytes # 0.9 Eosinophils # 0.1 Basophils # 0.1 Nucleated Red Blood Cells # 0.0 Activated Partial Thromboplast Time 58.6 H Sodium Level 129 L Potassium Level 3.2 L Chloride Level 96 L Carbon Dioxide Level 26 Anion Gap 10 # Blood Urea Nitrogen 21 H Creatinine 5.36 H Glucose Level 179 Calcium Level 7.3 L Phosphorus Level 5.8 H Magnesium Level 1.9 Medications Current Medications Diagnostic Test (Pha) (Accu-Chek) 1 ea 02 XX Last administered on 12/16/16 01: 14; Admin Dose 1 EA; Start 12/03/16 at 02:00 Ondansetron HCl (Zofran Inj) 4 mg Q6H PRN IV NAUSEA AND/OR VOMITING Last administered on 12/13/16 01:13; Admin Dose 4 MG; Start 12/02/16 at 22:30 Miscellaneous Information 1 ea NOTE XX ; Start 12/02/16 at 23:00 Glucose (Glutose) 15 gm Q15M PRN PO DECREASED GLUCOSE; Start 12/02/16 at 23:00 Glucose (Glutose) 22.5 gm Q15M PRN PO DECREASED GLUCOSE; Start 12/02/16 at 23: 00 Dextrose (D50w Syringe) 25 ml Q15M PRN IV DECREASED GLUCOSE Last administered on 12/10/16 05:52; Admin Dose 25 ML; Start 12/02/16 at 23:00 Dextrose (D50w Syringe) 50 ml Q15M PRN IV DECREASED GLUCOSE; Start 12/02/16 at 23:00 Glucagon (Glucagen) 1 mg Q15M PRN IM DECREASED GLUCOSE; Start 12/02/16 at 23:00 Glucose (Glutose) 15 gm Q15M PRN BUCCAL DECREASED GLUCOSE; Start 12/02/16 at 23 :00 Aspirin (Halfprin) 81 mg DAILY PO Last administered on 12/16/16 09:19; Admin Dose 81 MG; Start 12/03/16 at 09:00 Gabapentin (Neurontin) 800 mg TID PO Last administered on 12/08/16 20:33; Admin Dose 800 MG; Start 12/03/16 at 09:00; Status Future Hold Meclizine HCl (Antivert) 25 mg TID PRN PO dizziness Last administered on 10:04; Admin Dose 25 MG; Start 12/02/16 at 23:00 Terazosin HCl (Hytrin) 5 mg HS PO Last administered on 12/07/16 20:28; Admin Dose 5 MG; Start 12/03/16 at 21:00; Status Future Hold Acetaminophen/ Hydrocodone Bitart ([place] (5/325)) 1 tab Q6H PRN PO PAIN LEVEL 4 -7 Last administered on 12/10/16 21:31; Admin Dose 1 TAB; Start 12/02/16 at 23: 30 Acetaminophen (Tylenol Tab) 650 mg Q6H PRN PO PAIN AND OR ELEVATED TEMP; Start 12/02/16 at 23:30 Docusate Sodium (Colace) 100 mg BID PO Last administered on 12/08/16 20:32; Admin Dose 100 MG; Start 12/03/16 at 09:00; Status Future Hold Pantoprazole (Protonix Tab) 40 mg DAILY@06 PO Last administered on 12/16/16 05: 28; Admin Dose 40 MG; Start 12/03/16 at 06:00 Zolpidem Tartrate (Ambien) 5 mg HS PRN PO INSOMNIA Last administered on 00:45; Admin Dose 5 MG; Start 12/02/16 at 23:30 Benazepril HCl (Lotensin) 10 mg DAILY PO Last administered on 12/07/16 08:26; Admin Dose 10 MG; Start 12/04/16 at 09:00; Status Future Hold Insulin Glargine (Lantus) 25 unit DAILY SC Last administered on 12/13/16 08:47 ; Admin Dose 25 UNIT; Start 12/06/16 at 09:00; Status Future Hold Collagenase (Santyl) 1 applic DAILY TOP Last administered on 12/15/16 09:24; Admin Dose 1 APPLIC; Start 12/07/16 at 16:00 Lorazepam (Ativan) 2 mg Q2 PRN IV AGITATION/ANXIETY Last administered on 03:32; Admin Dose 1 MG; Start 12/09/16 at 09:30 Morphine Sulfate (morphine) 2 mg Q2H PRN IV PAIN Last administered on 12/13/16 02:00; Admin Dose 2 MG; Start 12/09/16 at 09:30 Acetaminophen 650 mg 650 mg Q6H PRN [place] ELEVATED TEMPERATURE Last administered on 12/09/16 17:53; Admin Dose 650 MG; Start 12/09/16 at 17:00 Piperacillin Sod/ Tazobactam Sod (Zosyn 2.25gm/ 50ml (Pmx)) 50 ml @ 100 mls/hr Q12 IVPB Last administered on 12/16/16 09:18; Admin Dose 100 MLS/HR; Start at 21:00 Metoprolol Tartrate 5 mg 5 mg Q4H PRN IV HR>100 Last administered on 12/10/16 22:23; Admin Dose 5 MG; Start 12/09/16 at 17:48 Phenylephrine HCl/ Dextrose (Fernandez-Syneph/D5W) 500 ml @ 75 mls/hr TITRATE IV Last administered on 12/13/16 15:21; Admin Dose 37.5 MLS/HR; Start 12/09/16 at 22:00 Amiodarone HCl (Cordarone) 200 mg BID PO Last administered on 12/16/16 09:19; Admin Dose 200 MG; Start 12/10/16 at 13:00 Hydralazine HCl (Apresoline) 10 mg Q6H PRN IV SBP>150mm hg ; Start 12/11/16 at 10:30 Metoprolol Tartrate (Lopressor) 25 mg BID PO Last administered on 12/12/16 20: 51; Admin Dose 25 MG; Start 12/11/16 at 21:00; Status Future hold Morphine Sulfate 2 mg 2 mg Q2H PRN IV PAIN LEVEL 4-7; Start 12/13/16 at 10:00 Propofol (Diprivan) 100 ml @ 2.544 mls/ hr Q12H IV Last administered on 04:55; Admin Dose 7.632 MLS/HR; Start 12/13/16 at 10:00 Insulin Aspart NOVOLOG *MODERATE* ALGORI... Q4 SC Last administered on 09:20; Admin Dose 2 UNIT; Start 12/14/16 at 09:00 Caspofungin/ Sodium Chloride (Cancidas/NS) 250 ml @ 250 mls/hr Q24H IVPB Last administered on 12/15/16t 11:56; Admin Dose 250 MLS/HR; Start 12/15/16 at 11:00 Assessment/Plan Chief Complaint/Hosp Course IMPRESSION AND PLAN: 1. Acute kidney injury. On hemodialysis 2. Hypoxemic respiratory failure possibly secondary to aspiration pneumonia 3. Underlying pulmonary edema secondary to renal insufficiency with volume overload, 4. Hypercapnic respiratory failure. 5. Diabetic foot ulcer 6. History of diabetes mellitus The patient will require 1. Continued mechanical ventilation. Not able to extubated from mechanical ventilation present, thoracentesis right lung and then left 2. Renal recommendations. Hemodialysis today per nephrology, aggressive volume removal if tolerated 3. Antibiotics for aspiration pneumonia, ID recommendations 4. DVT and GI prophylaxis. 5. Wound care per vascular surgery and podiatry Disposition Continue ICU care Problems: AUDELIA BARRIENTOS MD, [facility] December 16, 2016 09:25
[2016-12-16] MEDS ORDERED: POTASSIUM CHLORIDE 250 ML IVPB ONE (09:30)
--- NOTE | 2016-12-16 09:56 | RADRPT ---
PROCEDURE: XR Chest. CLINICAL INDICATION: Pneumonia TECHNIQUE: An AP view of the chest was obtained. COMPARISON: Chest x-ray dated 12/15/2016 FINDINGS: The endotracheal tube tip is approximately 4.0 cm above the dorinda. The tip of the enteric tube ex tends below the left diaphragm. There is a left upper extremity PICC line with tip in the mid SVC. There are bilateral interstitial opacities with small bilateral pleural effusions. No pneumothorax is seen. The cardiomediastinal silhouette is upper limits of normal in size. Calcifications are see n within the aortic arch. The osseous structures demonstrate senescent changes. IMPRESSION: 1. Findings suggestive of pulmonary vascular congestion/interstitial edema with small bilateral pl eural effusions. No significant interval change. 2. Aortic atherosclerosis. 3. Tubes and lines, as described above. RPTAT: HH .Hailey Curry MD, MD Date Time Electronically viewed and signed by .Hailey Curry MD, on 12/16/2016 09:55 .G/
--- NOTE | 2016-12-16 10:50 | CONS ---
Date/Time of Note Date/Time of Note DATE: 12/16/16 TIME: 10:47 Assessment/Plan Assessment/Plan Chief Complaint/Hosp Course IMPRESSION: 1. Atrial fibrillation-currently in SR with PAC's 2. Hypotension-resolved off of pat 3. Abnormal electrocardiogram with inferolateral T-wave inversions. 4. Respiratory failure-s/p intubation and remains 5. Nonhealing toe ulceration. 6. Peripheral arterial disease by arterial ultrasound of the lower extremities this admission. 7. Diabetes mellitus. 8. Fevers. 9. Positive troponin-downtrended 10.Bradycardia-mainly 50's Recc: -Tele -serial ecg -HD for volume removal -Continue asa -Continue heparin given now PAF/positive troponin -Continue PO amio in attempt to maintain SR -low dose BB as tolerated only -Will consider LHC/RHC versus lexiscan when patient improved HD/stable Problems: Consultation Date/Type/Reason Admit Date/Time Dec 02, 2016 at 21:01 Initial Consult Date 12/03/16 Type of Consultation: Cardiology Reason for Consultation Positive troponin/CHF/AF Referring Provider: VIET PARKER MD Exam/Review of Systems Vital Signs Vitals Vital Signs Date Time Temp Pulse Resp B/P Pulse Ox O2 Delivery O2 Flow Rate FiO2 12/16/16 08:00 67 12/16/16 08:00 40 12/16/16 08:00 99.0 18 145/69 100 Mechanical Ventilator 12/13/16 06:40 10.0 Intake and Output 12/15/16 12/15/16 12/16/16 15:00 23:00 07:00 Intake Total 1267.320 ml 1856.880 ml 449.924 ml Output Total 10 ml 4110 ml 36 ml Balance 1257.320 ml -2253.120 ml 413.924 ml Exam Review of Systems: CONSTITUTIONAL: No fevers, chills. PULMONARY: intubated CARDIOVASCULAR: No chest pain/palpitations GASTROINTESTINAL: No nausea/vomiting. GENITOURINARY: No hematuria/dysuria. MUSCULOSKELETAL: No myagias/arthalgias. PSYCHIATRIC: The patient denies depression. NEUROLOGIC: sedated Constitutional: other (sedated) Psych: no complaints Head: normocephalic ENMT: mucosa pink and moist Neck: supple Respiratory: diminished breath sounds Cardiovascular: irregular rhythm Gastrointestinal: non-tender, soft Musculoskeletal: muscle tone (normal) Extremities: edema (trace/B) Neurological: other (No focal deficits) Results Result Diagram: 12/16/16 0515 12/16/16 0515 Results 24 hrs Laboratory Tests Test 12/15/16 13:00 12/15/16 17:31 12/15/16 20:53 12/16/16 01:08 Bedside Glucose 233 H 166 201 184 Test 12/16/16 04:53 12/16/16 05:09 12/16/16 05:15 12/16/16 09:18 Lab Scanned Report BLOOD TRANSFUSION Bedside Glucose 187 164 White Blood Count 9.3 # Red Blood Count 2.78 L Hemoglobin 8.8 L Hematocrit 26.1 L Mean Corpuscular Volume 93.9 Mean Corpuscular Hemoglobin 31.7 Mean Corpuscular Hemoglobin Concent 33.7 Red Cell Distribution Width 13.2 Platelet Count 199 Mean Platelet Volume 10.0 Neutrophils % 80.4 H Lymphocytes % 7.4 L Monocytes % 10.1 Eosinophils % 1.0 Basophils % 0.5 Nucleated Red Blood Cells % 0.0 Neutrophils # 7.5 Lymphocytes # 0.7 L Monocytes # 0.9 Eosinophils # 0.1 Basophils # 0.1 Nucleated Red Blood Cells # 0.0 Activated Partial Thromboplast Time 58.6 H Sodium Level 129 L Potassium Level 3.2 L Chloride Level 96 L Carbon Dioxide Level 26 Anion Gap 10 # Blood Urea Nitrogen 21 H Creatinine 5.36 H Glucose Level 179 Calcium Level 7.3 L Phosphorus Level 5.8 H Magnesium Level 1.9 Medications Medications Current Medications Diagnostic Test (Pha) (Accu-Chek) 1 ea 02 XX Last administered on 12/16/16 01: 14; Admin Dose 1 EA; Start 12/03/16 at 02:00 Ondansetron HCl (Zofran Inj) 4 mg Q6H PRN IV NAUSEA AND/OR VOMITING Last administered on 12/13/16 01:13; Admin Dose 4 MG; Start 12/02/16 at 22:30 Miscellaneous Information 1 ea NOTE XX ; Start 12/02/16 at 23:00 Glucose (Glutose) 15 gm Q15M PRN PO DECREASED GLUCOSE; Start 12/02/16 at 23:00 Glucose (Glutose) 22.5 gm Q15M PRN PO DECREASED GLUCOSE; Start 12/02/16 at 23: 00 Dextrose (D50w Syringe) 25 ml Q15M PRN IV DECREASED GLUCOSE Last administered on 12/10/16 05:52; Admin Dose 25 ML; Start 12/02/16 at 23:00 Dextrose (D50w Syringe) 50 ml Q15M PRN IV DECREASED GLUCOSE; Start 12/02/16 at 23:00 Glucagon (Glucagen) 1 mg Q15M PRN IM DECREASED GLUCOSE; Start 12/02/16 at 23:00 Glucose (Glutose) 15 gm Q15M PRN BUCCAL DECREASED GLUCOSE; Start 12/02/16 at 23 :00 Aspirin (Halfprin) 81 mg DAILY PO Last administered on 12/16/16 09:19; Admin Dose 81 MG; Start 12/03/16 at 09:00 Gabapentin (Neurontin) 800 mg TID PO Last administered on 12/08/16 20:33; Admin Dose 800 MG; Start 12/03/16 at 09:00; Status Future Hold Meclizine HCl (Antivert) 25 mg TID PRN PO dizziness Last administered on 10:04; Admin Dose 25 MG; Start 12/02/16 at 23:00 Terazosin HCl (Hytrin) 5 mg HS PO Last administered on 12/07/16 20:28; Admin Dose 5 MG; Start 12/03/16 at 21:00; Status Future Hold Acetaminophen/ Hydrocodone Bitart ([place] (5/325)) 1 tab Q6H PRN PO PAIN LEVEL 4 -7 Last administered on 12/10/16 21:31; Admin Dose 1 TAB; Start 12/02/16 at 23: 30 Acetaminophen (Tylenol Tab) 650 mg Q6H PRN PO PAIN AND OR ELEVATED TEMP; Start 12/02/16 at 23:30 Docusate Sodium (Colace) 100 mg BID PO Last administered on 12/08/16 20:32; Admin Dose 100 MG; Start 12/03/16 at 09:00; Status Future Hold Pantoprazole (Protonix Tab) 40 mg DAILY@06 PO Last administered on 12/16/16 05: 28; Admin Dose 40 MG; Start 12/03/16 at 06:00 Zolpidem Tartrate (Ambien) 5 mg HS PRN PO INSOMNIA Last administered on 00:45; Admin Dose 5 MG; Start 12/02/16 at 23:30 Benazepril HCl (Lotensin) 10 mg DAILY PO Last administered on 12/07/16 08:26; Admin Dose 10 MG; Start 12/04/16 at 09:00; Status Future Hold Insulin Glargine (Lantus) 25 unit DAILY SC Last administered on 12/13/16 08:47 ; Admin Dose 25 UNIT; Start 12/06/16 at 09:00; Status Future Hold Collagenase (Santyl) 1 applic DAILY TOP Last administered on 12/15/16 09:24; Admin Dose 1 APPLIC; Start 12/07/16 at 16:00 Lorazepam (Ativan) 2 mg Q2 PRN IV AGITATION/ANXIETY Last administered on 03:32; Admin Dose 1 MG; Start 12/09/16 at 09:30 Morphine Sulfate (morphine) 2 mg Q2H PRN IV PAIN Last administered on 12/13/16 02:00; Admin Dose 2 MG; Start 12/09/16 at 09:30 Acetaminophen 650 mg 650 mg Q6H PRN NM ELEVATED TEMPERATURE Last administered on 12/09/16 17:53; Admin Dose 650 MG; Start 12/09/16 at 17:00 Piperacillin Sod/ Tazobactam Sod (Zosyn 2.25gm/ 50ml (Pmx)) 50 ml @ 100 mls/hr Q12 IVPB Last administered on 12/16/16 09:18; Admin Dose 100 MLS/HR; Start at 21:00 Metoprolol Tartrate 5 mg 5 mg Q4H PRN IV HR>100 Last administered on 12/10/16 22:23; Admin Dose 5 MG; Start 12/09/16 at 17:48 Phenylephrine HCl/ Dextrose (Pat-Syneph/D5W) 500 ml @ 75 mls/hr TITRATE IV Last administered on 12/13/16 15:21; Admin Dose 37.5 MLS/HR; Start 12/09/16 at 22:00 Amiodarone HCl (Cordarone) 200 mg BID PO Last administered on 12/16/16 09:19; Admin Dose 200 MG; Start 12/10/16 at 13:00 Hydralazine HCl (Apresoline) 10 mg Q6H PRN IV SBP>150mm hg ; Start 12/11/16 at 10:30 Metoprolol Tartrate (Lopressor) 25 mg BID PO Last administered on 12/12/16 20: 51; Admin Dose 25 MG; Start 12/11/16 at 21:00; Status Future hold Morphine Sulfate 2 mg 2 mg Q2H PRN IV PAIN LEVEL 4-7; Start 12/13/16 at 10:00 Propofol (Diprivan) 100 ml @ 2.544 mls/ hr Q12H IV Last administered on 04:55; Admin Dose 7.632 MLS/HR; Start 12/13/16 at 10:00 Insulin Aspart NOVOLOG *MODERATE* ALGORI... Q4 SC Last administered on 09:20; Admin Dose 2 UNIT; Start 12/14/16 at 09:00 Caspofungin 50 mg/ Sodium Chloride 250 ml @ 250 mls/hr Q24H IVPB Last administered on 12/15/16 11:56; Admin Dose 250 MLS/HR; Start 12/15/16 at 11:00 Potassium Chloride (KCl 40 MEQ/250 ML NS) 250 ml @ 62.5 mls/hr ONCE ONCE IVPB Last administered on 12/16/16 09:54; Admin Dose 62.5 MLS/HR; Start 12/16/16 at 09:30; Stop 12/16/16 at 13:29 VICENTE LESLIE December 16, 2016 10:50
[2016-12-16] MEDS: CASPOFUNGIN 50 MG in SOD CHLORIDE 0.9% 250 ML IVPB SCH (14:28)
--- NOTE | 2016-12-16 14:47 | PN ---
Date/Time of Note Date/Time of Note DATE: 12/16/16 TIME: 14:45 Assessment/Plan VTE Prophylaxis VTE Prophylaxis Intervention: SCD's Lines/Catheters IV Catheter Type (from [facility] PICC Line Central line still needed: Yes Urinary Cath still in place: Yes Reason Cath still needed: urinary retention Assessment/Plan Chief Complaint/Hosp Course Assessment/Plan - Acute to subacute right occipital lobe ischemic infarct per CT, Dr Morris is following in neurology consultation. Will obtain MRI of the brain the patient is more stable. - Acute respiratory failure secondary to pulmonary edema, patient is currently intubated, on vent support. Dr. Alvarez is following from pulmonology standpoint. - Bilateral pleural effusion pending thoracentesis - Acute renal failure, Dr. Remy is following in nephrology consultation. Continue hemodialysis per nephrology. - Paroxysmal atrial fibrillation and positive troponin. Continue heparin drip per protocol. Dr. Cobian is following and cardiology consultation. - Hypotension, continued on pressors for hemodynamic support. - Diabetic foot ulcer of the left foot, Dr Lin is following in podiatry consultation. - Fungemia, om Caspofungin. Dr. Pascual is following in infection disease consultation. - Cellulitis of left foot, 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 and left fourth proximal phalanx per bone scan, continue antibiotics, Continue antibiotics per ID. - Aortic stenosis - Diastolic dysfunction congestive heart failure with preserved ejection fraction of 60%. - DM, Hgb A1c is 8.7, continue Lantus and NovoLog per sliding scale. Further recommendations based on clinical course. Plan of care discussed with Dr. Heredia. Problems: Subjective 24 Hr Interval Summary Free Text/Dictation Patient is currently intubated on ventilatory support and propofol for sedation , patient is undergoing hemodialysis, plan for thoracentesis after dialysis. Exam/Review of Systems Vital Signs Vitals Vital Signs Date Time Temp Pulse Resp B/P Pulse Ox O2 Delivery O2 Flow Rate FiO2 12/16/16 14:30 57 12/16/16 14:00 18 119/58 99 Mechanical Ventilator 12/16/16 12:00 98.6 12/16/16 11:30 30 12/13/16 06:40 10.0 Intake and Output 12/15/16 12/15/16 12/16/16 15:00 23:00 07:00 Intake Total 1267.320 ml 1856.880 ml 449.924 ml Output Total 10 ml 4110 ml 36 ml Balance 1257.320 ml -2253.120 ml 413.924 ml Exam Constitutional: Sedated, orally intubated on vent support Psych: no complaints Head: atraumatic, normocephalic Eyes: nl conjunctiva ENMT: nl external ears & nose Neck: non-tender, supple Respiratory: clear to auscultation, normal air movement Cardiovascular: nl pulses, regular rate and rhythm, systolic murmur Gastrointestinal: non-tender, soft Musculoskeletal: nl extremities to inspection Extremities: normal pulses Neurological: Sedated Skin: nl turgor, left big toe ulcer. Results Result Diagram: 12/16/1615 12/16/1615 Results 24 hrs Laboratory Tests Test 12/15/16 17:31 12/15/16 20:53 12/16/16 01:08 12/16/16 04:53 Bedside Glucose 166 201 184 Lab Scanned Report BLOOD TRANSFUSION Test 12/16/16 05:09 12/16/16 05:15 12/16/16 09:18 12/16/16 14:28 Bedside Glucose 187 164 182 White Blood Count 9.3 # Red Blood Count 2.78 L Hemoglobin 8.8 L Hematocrit 26.1 L Mean Corpuscular Volume 93.9 Mean Corpuscular Hemoglobin 31.7 Mean Corpuscular Hemoglobin Concent 33.7 Red Cell Distribution Width 13.2 Platelet Count 199 Mean Platelet Volume 10.0 Neutrophils % 80.4 H Lymphocytes % 7.4 L Monocytes % 10.1 Eosinophils % 1.0 Basophils % 0.5 Nucleated Red Blood Cells % 0.0 Neutrophils # 7.5 Lymphocytes # 0.7 L Monocytes # 0.9 Eosinophils # 0.1 Basophils # 0.1 Nucleated Red Blood Cells # 0.0 Activated Partial Thromboplast Time 58.6 H Sodium Level 129 L Potassium Level 3.2 L Chloride Level 96 L Carbon Dioxide Level 26 Anion Gap 10 # Blood Urea Nitrogen 21 H Creatinine 5.36 H Glucose Level 179 Calcium Level 7.3 L Phosphorus Level 5.8 H Magnesium Level 1.9 Medications Medications Current Medications Diagnostic Test (Pha) (Accu-Chek) 1 ea 02 XX Last administered on 12/16/16t 01: 14; Admin Dose 1 EA; Start 12/03/16 at 02:00 Ondansetron HCl (Zofran Inj) 4 mg Q6H PRN IV NAUSEA AND/OR VOMITING Last administered on 12/13/16 01:13; Admin Dose 4 MG; Start 12/02/16 at 22:30 Miscellaneous Information 1 ea NOTE XX ; Start 12/02/16 at 23:00 Glucose (Glutose) 15 gm Q15M PRN PO DECREASED GLUCOSE; Start 12/02/16 at 23:00 Glucose (Glutose) 22.5 gm Q15M PRN PO DECREASED GLUCOSE; Start 12/02/16 at 23: 00 Dextrose (D50w Syringe) 25 ml Q15M PRN IV DECREASED GLUCOSE Last administered on 12/10/16 05:52; Admin Dose 25 ML; Start 12/02/16 at 23:00 Dextrose (D50w Syringe) 50 ml Q15M PRN IV DECREASED GLUCOSE; Start 12/02/16 at 23:00 Glucagon (Glucagen) 1 mg Q15M PRN IM DECREASED GLUCOSE; Start 12/02/16 at 23:00 Glucose (Glutose) 15 gm Q15M PRN BUCCAL DECREASED GLUCOSE; Start 12/02/16 at 23 :00 Aspirin (Halfprin) 81 mg DAILY PO Last administered on 12/16/16 09:19; Admin Dose 81 MG; Start 12/03/16 at 09:00 Gabapentin (Neurontin) 800 mg TID PO Last administered on 12/08/16 20:33; Admin Dose 800 MG; Start 12/03/16 at 09:00; Status Future Hold Meclizine HCl (Antivert) 25 mg TID PRN PO dizziness Last administered on 10:04; Admin Dose 25 MG; Start 12/02/16 at 23:00 Terazosin HCl (Hytrin) 5 mg HS PO Last administered on 12/07/16 20:28; Admin Dose 5 MG; Start 12/03/16 at 21:00; Status Future Hold Acetaminophen/ Hydrocodone Bitart ([place] (5/325)) 1 tab Q6H PRN PO PAIN LEVEL 4 -7 Last administered on 12/10/16 21:31; Admin Dose 1 TAB; Start 12/02/16 at 23: 30 Acetaminophen (Tylenol Tab) 650 mg Q6H PRN PO PAIN AND OR ELEVATED TEMP; Start 12/02/16 at 23:30 Docusate Sodium (Colace) 100 mg BID PO Last administered on 12/08/16 20:32; Admin Dose 100 MG; Start 12/03/16 at 09:00; Status Future Hold Zolpidem Tartrate (Ambien) 5 mg HS PRN PO INSOMNIA Last administered on 00:45; Admin Dose 5 MG; Start 12/02/16 at 23:30 Benazepril HCl (Lotensin) 10 mg DAILY PO Last administered on 12/07/16 08:26; Admin Dose 10 MG; Start 12/04/16 at 09:00; Status Future Hold Collagenase (Santyl) 1 applic DAILY TOP Last administered on 12/15/16 09:24; Admin Dose 1 APPLIC; Start 12/07/16 at 16:00 Lorazepam (Ativan) 2 mg Q2 PRN IV AGITATION/ANXIETY Last administered on 03:32; Admin Dose 1 MG; Start 12/09/16 at 09:30 Morphine Sulfate (morphine) 2 mg Q2H PRN IV PAIN Last administered on 12/13/16 02:00; Admin Dose 2 MG; Start 12/09/16 at 09:30 Acetaminophen 650 mg [address] ELEVATED TEMPERATURE Last administered on 12/09/16 17:53; Admin Dose 650 MG; Start 12/09/16 at 17:00 Piperacillin Sod/ Tazobactam Sod (Zosyn 2.25gm/ 50ml (Pmx)) 50 ml @ 100 mls/hr Q12 IVPB Last administered on 12/16/16 09:18; Admin Dose 100 MLS/HR; Start at 21:00 Metoprolol Tartrate 5 mg 5 mg Q4H PRN IV HR>100 Last administered on 12/10/16 22:23; Admin Dose 5 MG; Start 12/09/16 at 17:48 Phenylephrine HCl/ Dextrose (Fernandez-Syneph/D5W) 500 ml @ 75 mls/hr TITRATE IV Last administered on 12/13/16 15:21; Admin Dose 37.5 MLS/HR; Start 12/09/16 at 22:00 Amiodarone HCl (Cordarone) 200 mg BID PO Last administered on 12/16/16 09:19; Admin Dose 200 MG; Start 12/10/16 at 13:00 Hydralazine HCl (Apresoline) 10 mg Q6H PRN IV SBP>150mm hg ; Start 12/11/16 at 10:30 Morphine Sulfate 2 mg 2 mg Q2H PRN IV PAIN LEVEL 4-7; Start 12/13/16 at 10:00 Propofol (Diprivan) 100 ml @ 2.544 mls/ hr Q12H IV Last administered on 11:56; Admin Dose 10.176 MLS/HR; Start 12/13/16 at 10:00 Insulin Aspart NOVOLOG *MODERATE* ALGORI... Q4 SC Last administered on 14:31; Admin Dose 4 UNIT; Start 12/14/16 at 09:00 Caspofungin/ Sodium Chloride ([place]/NS) 250 ml @ 250 mls/hr Q24H IVPB Last administered on 12/16/16 14:28; Admin Dose 250 MLS/HR; Start 12/15/16 at 11:00 Metoprolol Tartrate (Lopressor) 12.5 mg BID PO ; Start 12/16/16 at 21:00 Insulin Glargine (Lantus) 17 unit DAILY@20 SC ; Start 12/16/16 at 20:00 Pantoprazole (Protonix Iv) 40 mg DAILY@06 IV ; Start 12/17/16 at 06:00 KIMBERLY NOYOLA December 16, 2016 14:47
--- NOTE | 2016-12-16 17:15 | RADRPT ---
PROCEDURE: US guided right thoracentesis. CLINICAL INDICATION: Shortness of breath. Right pleural effusion. TECHNIQUE: Prior to the procedure, informed consent was obtained. The risks, benefits, and alternatives were e xplained to the patient or the patient's family, including but not limited to bleeding, infection, p ain, visceral or vascular damage, shock, pneumothorax, chest tube placement, air embolism, and . The patient or the patient's family understood the risks and the alternatives and wished to proce ed with the study. Informed written consent was obtained. A procedural pause was performed. The patient's name, date of , and procedure to be performed were verified. Ultrasound of the right hemithorax was performed in the axial and sagittal planes. A right pleural e ffusion is noted. Utilizing ultrasound guidance, optimal location for entry to the pleural cavity wa s ascertained. The overlying skin was prepped and draped in the usual sterile fashion. Approximate ly 10 ml of 1% Xylocaine was injected locally for pain control. Using ultrasound guidance, a 5-Fren ch Yueh catheter was introduced into the right pleural space without difficulty. Fluid was aspirated . COMPARISON: None. FINDINGS: Initial ultrasound demonstrates fluid in the right pleural space. Approximately 0.900 liters of ser ous fluid was aspirated and discarded. IMPRESSION: 1. Satisfactory ultrasound-guided right thoracentesis. RPTAT: QQ .Bruce Zurita MD, Date Time Electronically viewed and signed by .Bruce Zurita MD, on 12/16/2016 17:15 .R/
[2016-12-16] MEDS ORDERED: LIDOCAINE 1% (MPF) 5 ML VIAL ONE (17:16)
--- NOTE | 2016-12-16 17:18 | RADRPT ---
PROCEDURE: XR Chest. CLINICAL INDICATION: Shortness of breath. Post right thoracentesis. TECHNIQUE: Single frontal view. COMPARISON: 12/16/2016. FINDINGS: The endotracheal tube, left arm PICC line, and nasogastric tube remain in satisfactory position. There is improved aeration of the lungs. Previously noted right pleural effusion is now smaller. There is a small left pleural effusion. There is no pneumothorax. IMPRESSION: 1. No pneumothorax following right thoracentesis. RPTAT: QQ .Bruce Zurita MD, MD Date Time Electronically viewed and signed by .Bruce Zurita MD, MD on 12/16/2016 17:18 .R/
--- NOTE | 2016-12-16 17:26 | CONS ---
Date/Time of Note Date/Time of Note DATE: 12/16/16 TIME: 17:24 Assessment/Plan Assessment/Plan Additional Assessment/Plan 1. Oliguric to Anuric Acute kidney injury 2/2 ATN- started on HD on 12/09/16 for acute fluid overload and Pulmonary edema 2. acute resp failure intubated on ventilator -now extubated on 12/10/2016- then again reintubated on 12/13/2016 3. Moderate to large right pleural effusion s/p Right thoracentesis 900 cc drained on 12/16/16 2. Left foot diabetic ulcer/cellulitis currently on IV antibiotics, Zosyn and vancomycin. 3. History of diabetes mellitus, insulin-dependent with lower extremity neuropathy. 4. History of hypertension. 5. History of aortic stenosis with diastolic dysfunction with ejection fraction 60% on echocardiogram. PLAN: s/p right thoracentesis 900 cc drained, BP stable plan for HD today will reassess in AM for his further need of HD will continue to follow up Consultation Date/Type/Reason Admit Date/Time Dec 02, 2016 at 21:01 Initial Consult Date Type of Consultation: NEPHROLOGY Referring Provider: VIET PARKER MD 24 HR Interval Summary Free Text/Dictation s/p right thoracentesis 900cc drained, BP stable, afebrile, plan for HD today Exam/Review of Systems Vital Signs Vitals Vital Signs Date Time Temp Pulse Resp B/P Pulse Ox O2 Delivery O2 Flow Rate FiO2 12/16/16 16:00 58 12/16/16 16:00 97.6 18 110/46 100 Mechanical Ventilator 12/16/16 11:30 30 12/13/16 06:40 10.0 Intake and Output 12/15/16 12/15/16 12/16/16 15:00 23:00 07:00 Intake Total 1267.320 ml 1856.880 ml 449.924 ml Output Total 10 ml 4110 ml 36 ml Balance 1257.320 ml -2253.120 ml 413.924 ml Exam Constitutional: Sedated, orally intubated on vent support Psych: no complaints Head: atraumatic, normocephalic Eyes: nl conjunctiva ENMT: nl external ears & nose Neck: non-tender, supple Respiratory: clear to auscultation, normal air movement Cardiovascular: nl pulses, regular rate and rhythm, systolic murmur Gastrointestinal: non-tender, soft Musculoskeletal: nl extremities to inspection Extremities: normal pulses Neurological: Sedated Skin: nl turgor, left big toe ulcer. Results Result Diagram: 12/16/16 0515 12/16/16 0515 Results 24 hrs Laboratory Tests Test 12/15/16 17:31 12/15/16 20:53 12/16/16 01:08 12/16/16 04:53 Bedside Glucose 166 201 184 Lab Scanned Report BLOOD TRANSFUSION Test 12/16/16 05:09 12/16/16 05:15 12/16/16 09:18 12/16/16 14:28 Bedside Glucose 187 164 182 White Blood Count 9.3 # Red Blood Count 2.78 L Hemoglobin 8.8 L Hematocrit 26.1 L Mean Corpuscular Volume 93.9 Mean Corpuscular Hemoglobin 31.7 Mean Corpuscular Hemoglobin Concent 33.7 Red Cell Distribution Width 13.2 Platelet Count 199 Mean Platelet Volume 10.0 Neutrophils % 80.4 H Lymphocytes % 7.4 L Monocytes % 10.1 Eosinophils % 1.0 Basophils % 0.5 Nucleated Red Blood Cells % 0.0 Neutrophils # 7.5 Lymphocytes # 0.7 L Monocytes # 0.9 Eosinophils # 0.1 Basophils # 0.1 Nucleated Red Blood Cells # 0.0 Activated Partial Thromboplast Time 58.6 H Sodium Level 129 L Potassium Level 3.2 L Chloride Level 96 L Carbon Dioxide Level 26 Anion Gap 10 # Blood Urea Nitrogen 21 H Creatinine 5.36 H Glucose Level 179 Calcium Level 7.3 L Phosphorus Level 5.8 H Magnesium Level 1.9 Medications Medications Current Medications Diagnostic Test (Pha) (Accu-Chek) 1 ea 02 XX Last administered on 12/16/16 01: 14; Admin Dose 1 EA; Start 12/03/16 at 02:00 Ondansetron HCl (Zofran Inj) 4 mg Q6H PRN IV NAUSEA AND/OR VOMITING Last administered on 12/13/16 01:13; Admin Dose 4 MG; Start 12/02/16 at 22:30 Miscellaneous Information 1 ea NOTE XX ; Start 12/02/16 at 23:00 Glucose (Glutose) 15 gm Q15M PRN PO DECREASED GLUCOSE; Start 12/02/16 at 23:00 Glucose (Glutose) 22.5 gm Q15M PRN PO DECREASED GLUCOSE; Start 12/02/16 at 23: 00 Dextrose (D50w Syringe) 25 ml Q15M PRN IV DECREASED GLUCOSE Last administered on 12/10/16 05:52; Admin Dose 25 ML; Start 12/02/16 at 23:00 Dextrose (D50w Syringe) 50 ml Q15M PRN IV DECREASED GLUCOSE; Start 12/02/16 at 23:00 Glucagon (Glucagen) 1 mg Q15M PRN IM DECREASED GLUCOSE; Start 12/02/16 at 23:00 Glucose (Glutose) 15 gm Q15M PRN BUCCAL DECREASED GLUCOSE; Start 12/02/16 at 23 :00 Aspirin (Halfprin) 81 mg DAILY PO Last administered on 12/16/16 09:19; Admin Dose 81 MG; Start 12/03/16 at 09:00 Gabapentin (Neurontin) 800 mg TID PO Last administered on 12/08/16 20:33; Admin Dose 800 MG; Start 12/03/16 at 09:00; Status Future Hold Meclizine HCl (Antivert) 25 mg TID PRN PO dizziness Last administered on 10:04; Admin Dose 25 MG; Start 12/02/16 at 23:00 Terazosin HCl (Hytrin) 5 mg HS PO Last administered on 12/07/16 20:28; Admin Dose 5 MG; Start 12/03/16 at 21:00; Status Future Hold Acetaminophen/ Hydrocodone Bitart ([place] (5/325)) 1 tab Q6H PRN PO PAIN LEVEL 4 -7 Last administered on 12/10/16 21:31; Admin Dose 1 TAB; Start 12/02/16 at 23: 30 Acetaminophen (Tylenol Tab) 650 mg Q6H PRN PO PAIN AND OR ELEVATED TEMP; Start 12/02/16 at 23:30 Docusate Sodium (Colace) 100 mg BID PO Last administered on 12/08/16 20:32; Admin Dose 100 MG; Start 12/03/16 at 09:00; Status Future Hold Zolpidem Tartrate (Ambien) 5 mg HS PRN PO INSOMNIA Last administered on 00:45; Admin Dose 5 MG; Start 12/02/16 at 23:30 Benazepril HCl (Lotensin) 10 mg DAILY PO Last administered on 12/07/16 08:26; Admin Dose 10 MG; Start 12/04/16 at 09:00; Status Future Hold Collagenase (Santyl) 1 applic DAILY TOP Last administered on 12/15/16 09:24; Admin Dose 1 APPLIC; Start 12/07/16 at 16:00 Lorazepam (Ativan) 2 mg Q2 PRN IV AGITATION/ANXIETY Last administered on 03:32; Admin Dose 1 MG; Start 12/09/16 at 09:30 Morphine Sulfate (morphine) 2 mg Q2H PRN IV PAIN Last administered on 12/13/16 02:00; Admin Dose 2 MG; Start 12/09/16 at 09:30 Acetaminophen 650 mg 650 mg Q6H PRN [place] ELEVATED TEMPERATURE Last administered on 12/09/16 17:53; Admin Dose 650 MG; Start 12/09/16 at 17:00 Piperacillin Sod/ Tazobactam Sod (Zosyn 2.25gm/ 50ml (Pmx)) 50 ml @ 100 mls/hr Q12 IVPB Last administered on 12/16/16 09:18; Admin Dose 100 MLS/HR; Start at 21:00 Metoprolol Tartrate 5 mg 5 mg Q4H PRN IV HR>100 Last administered on 12/10/16 22:23; Admin Dose 5 MG; Start 12/09/16 at 17:48 Phenylephrine HCl/ Dextrose (Fernandez-Syneph/D5W) 500 ml @ 75 mls/hr TITRATE IV Last administered on 12/13/16 15:21; Admin Dose 37.5 MLS/HR; Start 12/09/16 at 22:00 Amiodarone HCl (Cordarone) 200 mg BID PO Last administered on 12/16/16 09:19; Admin Dose 200 MG; Start 12/10/16 at 13:00 Hydralazine HCl (Apresoline) 10 mg Q6H PRN IV SBP>150mm hg ; Start 12/11/16 at 10:30 Morphine Sulfate 2 mg 2 mg Q2H PRN IV PAIN LEVEL 4-7; Start 12/13/16 at 10:00 Propofol (Diprivan) 100 ml @ 2.544 mls/ hr Q12H IV Last administered on 11:56; Admin Dose 10.176 MLS/HR; Start 12/13/16 at 10:00 Insulin Aspart NOVOLOG *MODERATE* ALGORI... Q4 SC Last administered on 14:31; Admin Dose 4 UNIT; Start 12/14/16 at 09:00 Caspofungin/ Sodium Chloride (Cancidas/NS) 250 ml @ 250 mls/hr Q24H IVPB Last administered on 12/16/16 14:28; Admin Dose 250 MLS/HR; Start 12/15/16 at 11:00 Metoprolol Tartrate (Lopressor) 12.5 mg BID PO ; Start 12/16/16 at 21:00 Insulin Glargine (Lantus) 17 unit DAILY@20 SC ; Start 12/16/16 at 20:00 Pantoprazole (Protonix Iv) 40 mg DAILY@06 IV ; Start 12/17/16 at 06:00 TASHIA MCGARRY MD December 16, 2016 17:26
[2016-12-16] MEDS: INSULIN GLARGINE [LANtus] 3 ML PEN SC SCH (20:59)
--- NOTE | 2016-12-16 22:42 | PN ---
Date/Time of Note Date/Time of Note DATE: 12/16/16 TIME: 22:42 Assessment/Plan Lines/Catheters IV Catheter Type (from [facility]): PICC Line [place] in Place (from [facility]): Yes Assessment/Plan Chief Complaint/Hosp Course -Bilateral lower extremity atherosclerosis with left first toe plantar ulcer: It seems the patient has developed a first toe plantar ulcer,and diabetic foot infection which may be related to his fall over a week ago. The bilateral lower extremity noninvasive vascular studies demonstrated some infrapopliteal disease as the patient does not have palpable pedal pulses and has been a long time smoker. -ATN:It seems the patient will need permanent catheter and likely eventually fistula creation. Will await for fungemia to resolve prior to a perm catheter placement -Continue with antibiotics -No vascular intervention for now. Will follow the wound progress closely and would recommend an angiogram with possible intervention if poor wound healing arises -Optimize vascular status (BP meds, diet, nutrition, exercise, sugar control, antiplatelets, weight loss). -Discussed smoking cessation with the patient and he understands. -Discussed findings, plan and management with the patient with a certified material mixer and he understands. -Thank you for allowing us to partake in the care of your patient. Please call with any questions. Problems: Exam/Review of Systems Vital Signs Vitals Vital Signs Date Time Temp Pulse Resp B/P Pulse Ox O2 Delivery O2 Flow Rate FiO2 12/21/16 08:00 74 16 138/70 91 Room Air 12/21/16 04:00 99.0 12/21/16 03:23 40 12/20/16 16:00 2.0 Intake and Output 12/20/16 12/20/16 12/21/16 15:00 23:00 07:00 Intake Total 1100 ml 850 ml Output Total 35 ml 5020 ml 60 ml Balance 1065 ml -4170 ml -60 ml Exam Free Text/Dictation GENERAL: Alert and oriented x3, PULMONARY: Clear to auscultation bilaterally CARDIOVASCULAR: S1, S2 present ABDOMEN: Soft, nontender, nondistended. Bowel sounds positive. EXTREMITIES: Right lower extremity: Palpable femoral pulse, nonpalpable pedal pulse. Motor , sensory intact. Cap refill 3 to 4 seconds. No ulcers identified. Left lower extremity: Palpable femoral pulse, nonpalpable pedal pulse. Motor and sensory intact. Cap refill 3 to 4 seconds. First toe with erythema and edema improved. Plantar ulcer of 1st metatarsal with callus and erythema slightly improving No drainage Results Result Diagram: 12/21/16 0500 12/21/16 0500 KAROLINE SHOEMAKER MD December 16, 2016 22:42
[2016-12-17] VITALS (89 sets, daily range): BP systolic 101–165; BP diastolic 47–74; PULSE 53–79; RESP 5–24
[2016-12-17] MEDS: ACCU-CHEK XX SCH (02:00)
[2016-12-17] MEDS: INSULIN ASPART [NOVOLOG] 3 ML PEN SC SCH ×6 (03:06→21:06)
[2016-12-17] MEDS: PROPOFOL 100 ML IV SCH ×3 (03:54→19:09)
[2016-12-17] MEDS: PANTOPRAZOLE 40 MG INJ IV SCH (05:30)
[2016-12-17 06:33] LABS: ADD SCAN DIFF NO
[2016-12-17 06:44] LABS: BASOPHILS % 0.5 % (0.0-2.0); EOSINOPHILS # 0.1 10^3/ul (0.0-0.5); EOSINOPHILS % 1.2 % (0.0-7.0); HEMATOCRIT 27.3 % (42.0-52.0); HEMOGLOBIN 8.8 g/dl (14.0-18.0); LYMPHOCYTES # 0.6 10^3/ul (0.8-2.9); LYMPHOCYTES % 7.4 % (15.0-51.0); MEAN CORPUSCULAR HEMOGLOBIN 31.2 pg (29.0-33.0); MEAN CORPUSCULAR HGB CONC 32.2 g/dl (32.0-37.0); MEAN CORPUSCULAR VOLUME 96.8 fl (82.0-101.0); MEAN PLATELET VOLUME 10.2 fl (7.4-10.4); MONOCYTE # 0.8 10^3/ul (0.3-0.9); MONOCYTES % 9.4 % (0.0-11.0); NEUTROPHIL # 6.9 10^3/ul (1.6-7.5); NEUTROPHILS % 79.9 % (39.0-77.0); PLATELET COUNT 199 10^3/UL (140-415); RED BLOOD COUNT 2.82 10^6/ul (4.70-6.10); RED CELL DISTRIBUTION WIDTH 13.5 % (11.5-14.5); WHITE BLOOD COUNT 8.7 10^3/ul (4.8-10.8)
[2016-12-17 07:07] LABS: POTASSIUM 3.8 mmol/L (3.5-5.1)
[2016-12-17 07:09] LABS: CREATININE 5.61 mg/dl (0.61-1.24)
[2016-12-17 07:10] LABS: CALCIUM 7.6 mg/dl (8.4-10.2); PHOSPHORUS 5.9 mg/dl (2.5-4.9)
[2016-12-17 07:11] LABS: MAGNESIUM 2.2 mg/dl (1.7-2.5)
--- NOTE | 2016-12-17 07:45 | RADRPT ---
PROCEDURE: XR Chest. CLINICAL INDICATION: Shortness of breath. TECHNIQUE: Single frontal view. COMPARISON: 12/16/2016. FINDINGS: The endotracheal tube, nasogastric tube, and left arm PICC line are in satisfactory position. There is mild atelectasis at the lung bases, unchanged. The lungs are otherwise clear. The heart size is normal. There is calcification in the aorta consistent with atherosclerosis. There are small bilateral pleural effusions. There is no pneumothorax. IMPRESSION: 1. Small bilateral pleural effusions and mild atelectasis at the lung bases. 2. No change from 12/16/2016. RPTAT: QQ .Bruce Zurita MD, MD Date Time Electronically viewed and signed by .Bruce Zurita MD, MD on 12/17/2016 07:45 .R/
[2016-12-17] MEDS: HEPARIN 25000 UNITS/250 ML 250 ML IV SCH (08:04)
[2016-12-17] MEDS: ASPIRIN (EC) 81 MG TAB PO SCH (08:17)
[2016-12-17] MEDS: PIPER-TAZO 2.25 GM (PMX) 50 ML IVPB SCH ×2 (08:17→21:02)
[2016-12-17] MEDS: AMIODARONE 200 MG TAB PO SCH ×2 (08:18→21:02)
[2016-12-17] MEDS: METOPROLOL 25 MG TAB PO SCH ×2 (09:00→21:03)
[2016-12-17] MEDS: COLLAGENASE 30 GM TUBE TOP SCH (09:47)
--- NOTE | 2016-12-17 10:46 | CONS ---
Date/Time of Note Date/Time of Note DATE: 12/17/16 TIME: 10:44 Consult Date/Type/Reason Admit Date/Time Dec 02, 2016 at 21:01 Initial Consult Date 12/03/16 Type of Consultation: pulmonary ICU Ordering Provider: VIET PARKER MD Subjective Patient remains intubated sedated on mechanical ventilation Hemodynamically stable this morning Objective Vital Signs Date Time Temp Pulse Resp B/P Pulse Ox O2 Delivery O2 Flow Rate FiO2 12/17/16 08:00 57 12/17/16 08:00 20 146/59 99 12/17/16 07:30 99.1 Mechanical Ventilator 12/17/16 05:45 30 Intake and Output 12/16/16 12/16/16 12/17/16 15:00 23:00 07:00 Intake Total 1084.36 ml 760.34 ml 459.0 ml Output Total 3500 ml 20 ml 20 ml Balance -2415.64 ml 740.34 ml 439.0 ml Exam PHYSICAL EXAMINATION: GENERAL: Elderly Pashto gentleman, intubated on mechanical ventilation, appears comfortable at rest, no acute distress. VITAL SIGNS: As above NECK: Supple. No JVD or lymphadenopathy. CARDIAC: S1, S2, no added sounds or murmurs. CHEST: Diminished air entry bilaterally. ABDOMEN: Soft, nontender. No guarding or rebound. EXTREMITIES: No cyanosis, clubbing, edema. NEUROLOGIC: Generalized weakness, but no focal deficits. Results/Medications Result Diagram: 12/17/16 0540 12/17/16 0540 Results 24 hrs Chest x-ray Improved and pulmonary edema Laboratory Tests Test 12/16/16 14:28 12/16/16 17:14 12/16/16 17:25 12/16/16 20:48 Bedside Glucose 182 138 200 Activated Partial Thromboplast Time 37.1 H Test 12/17/16 00:31 12/17/16 03:03 12/17/16 05:33 12/17/16 05:40 Activated Partial Thromboplast Time 47.3 H Bedside Glucose 173 156 White Blood Count 8.7 Red Blood Count 2.82 L Hemoglobin 8.8 L Hematocrit 27.3 L Mean Corpuscular Volume 96.8 Mean Corpuscular Hemoglobin 31.2 Mean Corpuscular Hemoglobin Concent 32.2 Red Cell Distribution Width 13.5 Platelet Count 199 Mean Platelet Volume 10.2 Neutrophils % 79.9 H Lymphocytes % 7.4 L Monocytes % 9.4 Eosinophils % 1.2 Basophils % 0.5 Nucleated Red Blood Cells % 0.0 Neutrophils # 6.9 Lymphocytes # 0.6 L Monocytes # 0.8 Eosinophils # 0.1 Basophils # 0.0 Nucleated Red Blood Cells # 0.0 Sodium Level 140 Potassium Level 3.8 Chloride Level 104 Carbon Dioxide Level 25 Anion Gap 15 Blood Urea Nitrogen 28 H Creatinine 5.61 H Glucose Level 149 Calcium Level 7.6 L Phosphorus Level 5.9 H Magnesium Level 2.2 Test 12/17/16 07:30 12/17/16 08:16 Activated Partial Thromboplast Time 52.3 H Bedside Glucose 159 Medications Current Medications Diagnostic Test (Pha) (Accu-Chek) 1 ea 02 XX Last administered on 12/17/16 02: 00; Admin Dose 1 EA; Start 12/03/16 at 02:00 Ondansetron HCl (Zofran Inj) 4 mg Q6H PRN IV NAUSEA AND/OR VOMITING Last administered on 12/13/16 01:13; Admin Dose 4 MG; Start 12/02/16 at 22:30 Miscellaneous Information 1 ea NOTE XX ; Start 12/02/16 at 23:00 Glucose (Glutose) 15 gm Q15M PRN PO DECREASED GLUCOSE; Start 12/02/16 at 23:00 Glucose (Glutose) 22.5 gm Q15M PRN PO DECREASED GLUCOSE; Start 12/02/16 at 23: 00 Dextrose (D50w Syringe) 25 ml Q15M PRN IV DECREASED GLUCOSE Last administered on 12/10/16 05:52; Admin Dose 25 ML; Start 12/02/16 at 23:00 Dextrose (D50w Syringe) 50 ml Q15M PRN IV DECREASED GLUCOSE; Start 12/02/16 at 23:00 Glucagon (Glucagen) 1 mg Q15M PRN IM DECREASED GLUCOSE; Start 12/02/16 at 23:00 Glucose (Glutose) 15 gm Q15M PRN BUCCAL DECREASED GLUCOSE; Start 12/02/16 at 23 :00 Aspirin (Halfprin) 81 mg DAILY PO Last administered on 12/17/16 08:17; Admin Dose 81 MG; Start 12/03/16 at 09:00 Gabapentin (Neurontin) 800 mg TID PO Last administered on 12/08/16 20:33; Admin Dose 800 MG; Start 12/03/16 at 09:00; Status Future Hold Meclizine HCl (Antivert) 25 mg TID PRN PO dizziness Last administered on 10:04; Admin Dose 25 MG; Start 12/02/16 at 23:00 Terazosin HCl (Hytrin) 5 mg HS PO Last administered on 12/07/16 20:28; Admin Dose 5 MG; Start 12/03/16 at 21:00; Status Future Hold Acetaminophen/ Hydrocodone Bitart ([place] (5/325)) 1 tab Q6H PRN PO PAIN LEVEL 4 -7 Last administered on 12/10/16 21:31; Admin Dose 1 TAB; Start 12/02/16 at 23: 30 Acetaminophen (Tylenol Tab) 650 mg Q6H PRN PO PAIN AND OR ELEVATED TEMP; Start 12/02/16 at 23:30 Docusate Sodium (Colace) 100 mg BID PO Last administered on 12/08/16 20:32; Admin Dose 100 MG; Start 12/03/16 at 09:00; Status Future Hold Zolpidem Tartrate (Ambien) 5 mg HS PRN PO INSOMNIA Last administered on 00:45; Admin Dose 5 MG; Start 12/02/16 at 23:30 Benazepril HCl (Lotensin) 10 mg DAILY PO Last administered on 12/07/16 08:26; Admin Dose 10 MG; Start 12/04/16 at 09:00; Status Future Hold Collagenase (Santyl) 1 applic DAILY TOP Last administered on 12/17/16 09:47; Admin Dose 1 APPLIC; Start 12/07/16 at 16:00 Lorazepam (Ativan) 2 mg Q2 PRN IV AGITATION/ANXIETY Last administered on 03:32; Admin Dose 1 MG; Start 12/09/16 at 09:30 Morphine Sulfate (morphine) 2 mg Q2H PRN IV PAIN Last administered on 12/13/16 02:00; Admin Dose 2 MG; Start 12/09/16 at 09:30 Acetaminophen 650 mg 650 mg Q6H PRN [place] ELEVATED TEMPERATURE Last administered on 12/09/16 17:53; Admin Dose 650 MG; Start 12/09/16 at 17:00 Piperacillin Sod/ Tazobactam Sod (Zosyn 2.25gm/ 50ml (Pmx)) 50 ml @ 100 mls/hr Q12 IVPB Last administered on 12/17/16 08:17; Admin Dose 100 MLS/HR; Start at 21:00 Metoprolol Tartrate 5 mg 5 mg Q4H PRN IV HR>100 Last administered on 12/10/16 22:23; Admin Dose 5 MG; Start 12/09/16 at 17:48 Phenylephrine HCl/ Dextrose (Fernandez-Syneph/D5W) 500 ml @ 75 mls/hr TITRATE IV Last administered on 12/13/16 15:21; Admin Dose 37.5 MLS/HR; Start 12/09/16 at 22:00 Amiodarone HCl (Cordarone) 200 mg BID PO Last administered on 12/17/16 08:18; Admin Dose 200 MG; Start 12/10/16 at 13:00 Hydralazine HCl (Apresoline) 10 mg Q6H PRN IV SBP>150mm hg ; Start 12/11/16 at 10:30 Morphine Sulfate 2 mg 2 mg Q2H PRN IV PAIN LEVEL 4-7; Start 12/13/16 at 10:00 Propofol (Diprivan) 100 ml @ 2.544 mls/ hr Q12H IV Last administered on 03:54; Admin Dose 10.176 MLS/HR; Start 12/13/16 at 10:00 Insulin Aspart NOVOLOG *MODERATE* ALGORI... Q4 SC Last administered on 08:27; Admin Dose 2 UNIT; Start 12/14/16 at 09:00 Caspofungin/ Sodium Chloride (Cancidas/NS) 250 ml @ 250 mls/hr Q24H IVPB Last administered on 12/16/16 14:28; Admin Dose 250 MLS/HR; Start 12/15/16 at 11:00 Metoprolol Tartrate (Lopressor) 12.5 mg BID PO Last administered on 12/16/16 20 :55; Admin Dose 12.5 MG; Start 12/16/16 at 21:00 Insulin Glargine (Lantus) 17 unit DAILY@20 SC Last administered on 12/16/16 20: 59; Admin Dose 17 UNIT; Start 12/16/16 at 20:00 Pantoprazole (Protonix Iv) 40 mg DAILY@06 IV Last administered on 12/17/16 05: 30; Admin Dose 40 MG; Start 12/17/16 at 06:00 Assessment/Plan Chief Complaint/Hosp Course IMPRESSION AND PLAN: 1. Acute kidney injury. On hemodialysis 2. Hypoxemic respiratory failure possibly secondary to aspiration pneumonia 3. Underlying pulmonary edema secondary to renal insufficiency with volume overload, 4. Hypercapnic respiratory failure. 5. Diabetic foot ulcer 6. History of diabetes mellitus The patient will require 1. Continued mechanical ventilation. We'll attempt CPAP trial tomorrow's radiographically improving 2. Renal recommendations. Hemodialysis today per nephrology, aggressive volume removal if tolerated 3. Antibiotics for aspiration pneumonia, ID recommendations 4. DVT and GI prophylaxis. 5. Wound care per vascular surgery and podiatry Disposition Continue ICU care Problems: AUDELIA BARRIENTOS MD, [facility] December 17, 2016 10:46
--- NOTE | 2016-12-17 10:52 | CONS ---
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 superficial swab grew inna only - ARANZA, on HD from 12/09/2016 - A fib - troponin+ - DM - HTN recommendations: - repeated wound culture today - I requested fluid tests and cultures from thoracentesis today - requested sensitivity of C. glabrata for flucon, caspo and voriconazole on 12/16 - continue caspofungin (12/14/2016-) - continue renally dosed pip/tazo (12/03/2016) empirically for diabetic foot infection, and sepsis - will re-start linezolid (12/13/2016-) because the lesion of L 1st toe is purulent, and I want to enhance coverage of skin roni - if blood cultures on 12/13/2016 grows yeast, I recommend d/c HD catheter - ultimately, Pt Pt needs 6 weeks of antibiotics to treat 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 and left fourth proximal phalanx: 2016 through 01/15/2017 management d/w Pt's RN the critical care time I took to care for this Pt today was from 1000 to 1040 Problems: Consultation Date/Type/Reason Admit Date/Time Dec 02, 2016 at 21:01 Initial Consult Date 12/03/16 Type of Consultation: ID Referring Provider: VIET PARKER MD 24 HR Interval Summary Subjective hx not possible: pt non-verbal, pt critical, pt critical status Exam/Review of Systems Vital Signs Vitals Vital Signs Date Time Temp Pulse Resp B/P Pulse Ox O2 Delivery O2 Flow Rate FiO2 12/17/16 08:00 57 12/17/16 08:00 20 146/59 99 12/17/16 07:30 99.1 Mechanical Ventilator 12/17/16 05:45 30 Intake and Output 12/16/16 12/16/16 12/17/16 15:00 23:00 07:00 Intake Total 1084.36 ml 760.34 ml 459.0 ml Output Total 3500 ml 20 ml 20 ml Balance -2415.64 ml 740.34 ml 439.0 ml Exam Constitutional: frail, non-verbal, other (sedated) Psych: other (sedated) Head: atraumatic, normocephalic ENMT: intubated Respiratory: diminished breath sounds Cardiovascular: nl pulses, regular rate and rhythm Gastrointestinal: non-tender, soft Musculoskeletal: nl extremities to inspection Extremities: No edema Neurological: other (sedated) Skin: rash or lesions (eschar and pale tissue on plantar L 1st toe) Results Result Diagram: 12/17/16 0540 12/17/16 0540 Results 24 hrs Laboratory Tests Test 12/16/16 14:28 12/16/16 17:14 12/16/16 17:25 12/16/16 20:48 Bedside Glucose 182 138 200 Activated Partial Thromboplast Time 37.1 H Test 12/17/16 00:31 12/17/16 03:03 12/17/16 05:33 12/17/16 05:40 Activated Partial Thromboplast Time 47.3 H Bedside Glucose 173 156 White Blood Count 8.7 Red Blood Count 2.82 L Hemoglobin 8.8 L Hematocrit 27.3 L Mean Corpuscular Volume 96.8 Mean Corpuscular Hemoglobin 31.2 Mean Corpuscular Hemoglobin Concent 32.2 Red Cell Distribution Width 13.5 Platelet Count 199 Mean Platelet Volume 10.2 Neutrophils % 79.9 H Lymphocytes % 7.4 L Monocytes % 9.4 Eosinophils % 1.2 Basophils % 0.5 Nucleated Red Blood Cells % 0.0 Neutrophils # 6.9 Lymphocytes # 0.6 L Monocytes # 0.8 Eosinophils # 0.1 Basophils # 0.0 Nucleated Red Blood Cells # 0.0 Sodium Level 140 Potassium Level 3.8 Chloride Level 104 Carbon Dioxide Level 25 Anion Gap 15 Blood Urea Nitrogen 28 H Creatinine 5.61 H Glucose Level 149 Calcium Level 7.6 L Phosphorus Level 5.9 H Magnesium Level 2.2 Test 12/17/16 07:30 12/17/16 08:16 Activated Partial Thromboplast Time 52.3 H Bedside Glucose 159 Medications Medications Current Medications Diagnostic Test (Pha) (Accu-Chek) 1 ea 02 XX Last administered on 12/17/16 02: 00; Admin Dose 1 EA; Start 12/03/16 at 02:00 Ondansetron HCl (Zofran Inj) 4 mg Q6H PRN IV NAUSEA AND/OR VOMITING Last administered on 12/13/16 01:13; Admin Dose 4 MG; Start 12/02/16 at 22:30 Miscellaneous Information 1 ea NOTE XX ; Start 12/02/16 at 23:00 Glucose (Glutose) 15 gm Q15M PRN PO DECREASED GLUCOSE; Start 12/02/16 at 23:00 Glucose (Glutose) 22.5 gm Q15M PRN PO DECREASED GLUCOSE; Start 12/02/16 at 23: 00 Dextrose (D50w Syringe) 25 ml Q15M PRN IV DECREASED GLUCOSE Last administered on 12/10/16 05:52; Admin Dose 25 ML; Start 12/02/16 at 23:00 Dextrose (D50w Syringe) 50 ml Q15M PRN IV DECREASED GLUCOSE; Start 12/02/16 at 23:00 Glucagon (Glucagen) 1 mg Q15M PRN IM DECREASED GLUCOSE; Start 12/02/16 at 23:00 Glucose (Glutose) 15 gm Q15M PRN BUCCAL DECREASED GLUCOSE; Start 12/02/16 at 23 :00 Aspirin (Halfprin) 81 mg DAILY PO Last administered on 12/17/16 08:17; Admin Dose 81 MG; Start 12/03/16 at 09:00 Gabapentin (Neurontin) 800 mg TID PO Last administered on 12/08/16 20:33; Admin Dose 800 MG; Start 12/03/16 at 09:00; Status Future Hold Meclizine HCl (Antivert) 25 mg TID PRN PO dizziness Last administered on 10:04; Admin Dose 25 MG; Start 12/02/16 at 23:00 Terazosin HCl (Hytrin) 5 mg HS PO Last administered on 12/07/16 20:28; Admin Dose 5 MG; Start 12/03/16 at 21:00; Status Future Hold Acetaminophen/ Hydrocodone Bitart ([place] (5/325)) 1 tab Q6H PRN PO PAIN LEVEL 4 -7 Last administered on 12/10/16 21:31; Admin Dose 1 TAB; Start 12/02/16 at 23: 30 Acetaminophen (Tylenol Tab) 650 mg Q6H PRN PO PAIN AND OR ELEVATED TEMP; Start 12/02/16 at 23:30 Docusate Sodium (Colace) 100 mg BID PO Last administered on 12/08/16 20:32; Admin Dose 100 MG; Start 12/03/16 at 09:00; Status Future Hold Zolpidem Tartrate (Ambien) 5 mg HS PRN PO INSOMNIA Last administered on 00:45; Admin Dose 5 MG; Start 12/02/16 at 23:30 Benazepril HCl (Lotensin) 10 mg DAILY PO Last administered on 12/07/16 08:26; Admin Dose 10 MG; Start 12/04/16 at 09:00; Status Future Hold Collagenase (Santyl) 1 applic DAILY TOP Last administered on 12/17/16 09:47; Admin Dose 1 APPLIC; Start 12/07/16 at 16:00 Lorazepam (Ativan) 2 mg Q2 PRN IV AGITATION/ANXIETY Last administered on 03:32; Admin Dose 1 MG; Start 12/09/16 at 09:30 Morphine Sulfate (morphine) 2 mg Q2H PRN IV PAIN Last administered on 12/13/16 02:00; Admin Dose 2 MG; Start 12/09/16 at 09:30 Acetaminophen 650 mg 650 mg Q6H PRN [place] ELEVATED TEMPERATURE Last administered on 12/09/16 17:53; Admin Dose 650 MG; Start 12/09/16 at 17:00 Piperacillin Sod/ Tazobactam Sod (Zosyn 2.25gm/ 50ml (Pmx)) 50 ml @ 100 mls/hr Q12 IVPB Last administered on 12/17/16 08:17; Admin Dose 100 MLS/HR; Start at 21:00 Metoprolol Tartrate 5 mg 5 mg Q4H PRN IV HR>100 Last administered on 12/10/16 22:23; Admin Dose 5 MG; Start 12/09/16 at 17:48 Phenylephrine HCl/ Dextrose ([place]-Syneph/D5W) 500 ml @ 75 mls/hr TITRATE IV Last administered on 12/13/16 15:21; Admin Dose 37.5 MLS/HR; Start 12/09/16 at 22:00 Amiodarone HCl (Cordarone) 200 mg BID PO Last administered on 12/17/16 08:18; Admin Dose 200 MG; Start 12/10/16 at 13:00 Hydralazine HCl (Apresoline) 10 mg Q6H PRN IV SBP>150mm hg ; Start 12/11/16 at 10:30 Morphine Sulfate 2 mg 2 mg Q2H PRN IV PAIN LEVEL 4-7; Start 12/13/16 at 10:00 Propofol (Diprivan) 100 ml @ 2.544 mls/ hr Q12H IV Last administered on 03:54; Admin Dose 10.176 MLS/HR; Start 12/13/16 at 10:00 Insulin Aspart NOVOLOG *MODERATE* ALGORI... Q4 SC Last administered on 08:27; Admin Dose 2 UNIT; Start 12/14/16 at 09:00 Caspofungin/ Sodium Chloride (Cancidas/NS) 250 ml @ 250 mls/hr Q24H IVPB Last administered on 12/16/16 14:28; Admin Dose 250 MLS/HR; Start 12/15/16 at 11:00 Metoprolol Tartrate (Lopressor) 12.5 mg BID PO Last administered on 12/16/16 20 :55; Admin Dose 12.5 MG; Start 12/16/16 at 21:00 Insulin Glargine (Lantus) 17 unit DAILY@20 SC Last administered on 12/16/16 20: 59; Admin Dose 17 UNIT; Start 12/16/16 at 20:00 Pantoprazole (Protonix Iv) 40 mg DAILY@06 IV Last administered on 12/17/16 05: 30; Admin Dose 40 MG; Start 12/17/16 at 06:00 CHRISTY LOPEZ M.D. December 17, 2016 10:52
[2016-12-17 11:38] LABS: INR 1.14; PROTIME 14.6 Sec (12.2-14.2); PT RATIO 1.1
[2016-12-17] MEDS: CASPOFUNGIN 50 MG in SOD CHLORIDE 0.9% 250 ML IVPB SCH (12:09)
--- NOTE | 2016-12-17 13:03 | CONS ---
Date/Time of Note Date/Time of Note DATE: 12/17/16 TIME: 12:59 Assessment/Plan Assessment/Plan Chief Complaint/Hosp Course IMPRESSION: 1. Atrial fibrillation-currently in SR with PAC's 2. Hypotension-resolved off of pat 3. Abnormal electrocardiogram with inferolateral T-wave inversions. 4. Respiratory failure-s/p intubation and remains 5. Nonhealing toe ulceration. 6. Peripheral arterial disease by arterial ultrasound of the lower extremities this admission. 7. Diabetes mellitus. 8. Fevers. 9. Positive troponin-downtrended 10.Bradycardia-mainly 50's Recc: -Tele -serial ecg -HD for volume removal -Continue asa -Continue heparin given now PAF/positive troponin -Continue PO amio in attempt to maintain SR -low dose BB as tolerated only following HR closely -Will consider LHC/RHC versus lexiscan when patient improved HD/stable Problems: Consultation Date/Type/Reason Admit Date/Time Dec 02, 2016 at 21:01 Initial Consult Date 12/03/16 Type of Consultation: Cardiology Reason for Consultation AF//hypotension Referring Provider: VIET PARKER MD Exam/Review of Systems Vital Signs Vitals Vital Signs Date Time Temp Pulse Resp B/P Pulse Ox O2 Delivery O2 Flow Rate FiO2 12/17/16 08:00 57 12/17/16 08:00 20 146/59 99 12/17/16 07:30 99.1 Mechanical Ventilator 12/17/16 05:45 30 Intake and Output 12/16/16 12/16/16 12/17/16 15:00 23:00 07:00 Intake Total 1084.36 ml 760.34 ml 459.0 ml Output Total 3500 ml 20 ml 20 ml Balance -2415.64 ml 740.34 ml 439.0 ml Exam Review of Systems: CONSTITUTIONAL: No fevers, chills. PULMONARY: intubated CARDIOVASCULAR: No obvious chest pain/palpitations GASTROINTESTINAL: No nausea/vomiting. GENITOURINARY: No hematuria/dysuria. MUSCULOSKELETAL: No myagias/arthalgias. PSYCHIATRIC: The patient denies depression. NEUROLOGIC: No weakness Constitutional: other (sedated) Psych: no complaints Head: normocephalic ENMT: mucosa pink and moist Neck: jvd (9 cm water), supple Respiratory: diminished breath sounds (at bases/B) Cardiovascular: regular rate and rhythm Gastrointestinal: non-tender, soft Musculoskeletal: muscle tone (normal) Extremities: edema (none) Neurological: other (No focal deficits) Results Result Diagram: 12/17/16 0540 12/17/16 0540 Results 24 hrs Laboratory Tests Test 12/16/16 14:28 12/16/16 17:14 12/16/16 17:25 12/16/16 20:48 Bedside Glucose 182 138 200 Activated Partial Thromboplast Time 37.1 H Test 12/17/16 00:31 12/17/16 03:03 12/17/16 05:33 12/17/16 05:40 Activated Partial Thromboplast Time 47.3 H Bedside Glucose 173 156 White Blood Count 8.7 Red Blood Count 2.82 L Hemoglobin 8.8 L Hematocrit 27.3 L Mean Corpuscular Volume 96.8 Mean Corpuscular Hemoglobin 31.2 Mean Corpuscular Hemoglobin Concent 32.2 Red Cell Distribution Width 13.5 Platelet Count 199 Mean Platelet Volume 10.2 Neutrophils % 79.9 H Lymphocytes % 7.4 L Monocytes % 9.4 Eosinophils % 1.2 Basophils % 0.5 Nucleated Red Blood Cells % 0.0 Neutrophils # 6.9 Lymphocytes # 0.6 L Monocytes # 0.8 Eosinophils # 0.1 Basophils # 0.0 Nucleated Red Blood Cells # 0.0 Sodium Level 140 Potassium Level 3.8 Chloride Level 104 Carbon Dioxide Level 25 Anion Gap 15 Blood Urea Nitrogen 28 H Creatinine 5.61 H Glucose Level 149 Calcium Level 7.6 L Phosphorus Level 5.9 H Magnesium Level 2.2 Test 12/17/16 07:30 12/17/16 08:16 Prothrombin Time 14.6 H Prothrombin Time Ratio 1.1 INR International Normalized Ratio 1.14 Activated Partial Thromboplast Time 52.3 H Bedside Glucose 159 Medications Medications Current Medications Diagnostic Test (Pha) (Accu-Chek) 1 ea 02 XX Last administered on 12/17/16 02: 00; Admin Dose 1 EA; Start 12/03/16 at 02:00 Ondansetron HCl (Zofran Inj) 4 mg Q6H PRN IV NAUSEA AND/OR VOMITING Last administered on 12/13/16 01:13; Admin Dose 4 MG; Start 12/02/16 at 22:30 Miscellaneous Information 1 ea NOTE XX ; Start 12/02/16 at 23:00 Glucose (Glutose) 15 gm Q15M PRN PO DECREASED GLUCOSE; Start 12/02/16 at 23:00 Glucose (Glutose) 22.5 gm Q15M PRN PO DECREASED GLUCOSE; Start 12/02/16 at 23: 00 Dextrose (D50w Syringe) 25 ml Q15M PRN IV DECREASED GLUCOSE Last administered on 12/10/16 05:52; Admin Dose 25 ML; Start 12/02/16 at 23:00 Dextrose (D50w Syringe) 50 ml Q15M PRN IV DECREASED GLUCOSE; Start 12/02/16 at 23:00 Glucagon (Glucagen) 1 mg Q15M PRN IM DECREASED GLUCOSE; Start 12/02/16 at 23:00 Glucose (Glutose) 15 gm Q15M PRN BUCCAL DECREASED GLUCOSE; Start 12/02/16 at 23 :00 Aspirin (Halfprin) 81 mg DAILY PO Last administered on 12/17/16 08:17; Admin Dose 81 MG; Start 12/03/16 at 09:00 Gabapentin (Neurontin) 800 mg TID PO Last administered on 12/08/16 20:33; Admin Dose 800 MG; Start 12/03/16 at 09:00; Status Future Hold Meclizine HCl (Antivert) 25 mg TID PRN PO dizziness Last administered on 10:04; Admin Dose 25 MG; Start 12/02/16 at 23:00 Terazosin HCl (Hytrin) 5 mg HS PO Last administered on 12/07/16 20:28; Admin Dose 5 MG; Start 12/03/16 at 21:00; Status Future Hold Acetaminophen/ Hydrocodone Bitart ([place] (5/325)) 1 tab Q6H PRN PO PAIN LEVEL 4 -7 Last administered on 12/10/16 21:31; Admin Dose 1 TAB; Start 12/02/16 at 23: 30 Acetaminophen (Tylenol Tab) 650 mg Q6H PRN PO PAIN AND OR ELEVATED TEMP; Start 12/02/16 at 23:30 Docusate Sodium (Colace) 100 mg BID PO Last administered on 12/08/16 20:32; Admin Dose 100 MG; Start 12/03/16 at 09:00; Status Future Hold Zolpidem Tartrate (Ambien) 5 mg HS PRN PO INSOMNIA Last administered on 00:45; Admin Dose 5 MG; Start 12/02/16 at 23:30 Benazepril HCl (Lotensin) 10 mg DAILY PO Last administered on 12/07/16 08:26; Admin Dose 10 MG; Start 12/04/16 at 09:00; Status Future Hold Collagenase (Santyl) 1 applic DAILY TOP Last administered on 12/17/16 09:47; Admin Dose 1 APPLIC; Start 12/07/16 at 16:00 Lorazepam (Ativan) 2 mg Q2 PRN IV AGITATION/ANXIETY Last administered on 03:32; Admin Dose 1 MG; Start 12/09/16 at 09:30 Morphine Sulfate (morphine) 2 mg Q2H PRN IV PAIN Last administered on 12/13/16 02:00; Admin Dose 2 MG; Start 12/09/16 at 09:30 Acetaminophen 650 mg 650 mg Q6H PRN [place] ELEVATED TEMPERATURE Last administered on 12/09/16 17:53; Admin Dose 650 MG; Start 12/09/16 at 17:00 Piperacillin Sod/ Tazobactam Sod (Zosyn 2.25gm/ 50ml (Pmx)) 50 ml @ 100 mls/hr Q12 IVPB Last administered on 12/17/16 08:17; Admin Dose 100 MLS/HR; Start at 21:00 Metoprolol Tartrate 5 mg 5 mg Q4H PRN IV HR>100 Last administered on 12/10/16 22:23; Admin Dose 5 MG; Start 12/09/16 at 17:48 Phenylephrine HCl/ Dextrose (Pat-Syneph/D5W) 500 ml @ 75 mls/hr TITRATE IV Last administered on 12/13/16 15:21; Admin Dose 37.5 MLS/HR; Start 12/09/16 at 22:00 Amiodarone HCl (Cordarone) 200 mg BID PO Last administered on 12/17/16 08:18; Admin Dose 200 MG; Start 12/10/16 at 13:00 Hydralazine HCl (Apresoline) 10 mg Q6H PRN IV SBP>150mm hg ; Start 12/11/16 at 10:30 Morphine Sulfate 2 mg 2 mg Q2H PRN IV PAIN LEVEL 4-7; Start 12/13/16 at 10:00 Propofol (Diprivan) 100 ml @ 2.544 mls/ hr Q12H IV Last administered on 11:54; Admin Dose 12.72 MLS/HR; Start 12/13/16 at 10:00 Insulin Aspart NOVOLOG *MODERATE* ALGORI... Q4 SC Last administered on 08:27; Admin Dose 2 UNIT; Start 12/14/16 at 09:00 Caspofungin/ Sodium Chloride (Cancidas/NS) 250 ml @ 250 mls/hr Q24H IVPB Last administered on 12/17/16 12:09; Admin Dose 250 MLS/HR; Start 12/15/16 at 11:00 Metoprolol Tartrate (Lopressor) 12.5 mg BID PO Last administered on 12/16/16 20 :55; Admin Dose 12.5 MG; Start 12/16/16 at 21:00 Insulin Glargine (Lantus) 17 unit DAILY@20 SC Last administered on 12/16/16 20: 59; Admin Dose 17 UNIT; Start 12/16/16 at 20:00 Pantoprazole 40 mg 40 mg DAILY@06 IV Last administered on 12/17/16 05:30; Admin Dose 40 MG; Start 12/17/16 at 06:00 Linezolid (Zyvox 600mg/D5W (Pmx)) 300 ml @ 300 mls/hr Q12 IVPB ; Start 12/17/16 at 21:00 VICENTE LESLIE December 17, 2016 13:03
--- NOTE | 2016-12-17 13:07 | PN ---
Date/Time of Note Date/Time of Note DATE: 12/17/16 TIME: 13:04 Assessment/Plan VTE Prophylaxis VTE Prophylaxis Intervention: SCD's Lines/Catheters IV C[facility]ter Type (from [facility] PICC Line Central line still needed: Yes Urinary Cath still in place: Yes Reason Cath still needed: urinary retention Assessment/Plan Chief Complaint/Hosp Course Assessment/Plan - Acute respiratory failure secondary to pulmonary edema, patient is currently intubated, on vent support. Dr. Alvarez is following from pulmonology standpoint. - Bilateral pleural effusion, this post right sided thoracentesis with removal of 900 cc of fluid, pending a left sided thoracentesis today. - Acute renal failure, Dr. Remy is following in nephrology consultation. Continue hemodialysis per nephrology. - Acute to subacute right occipital lobe ischemic infarct per CT, Dr Morris is following in neurology consultation. Will obtain MRI of the brain the patient is more stable. - Paroxysmal atrial fibrillation and positive troponin. Dr. Cobian is following and cardiology consultation. Patient was on heparin drip which is currently on hold due to procedure. - Fungemia, om Caspofungin. Dr. Pascual is following in infection disease consultation. - Diabetic foot ulcer of the left foot, Dr Lin is following in podiatry consultation. - Cellulitis of left foot, 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 and left fourth proximal phalanx per bone scan, continue antibiotics, Continue antibiotics per ID. - Aortic stenosis - Diastolic dysfunction congestive heart failure with preserved ejection fraction of 60%. - DM, Hgb A1c is 8.7, continue Lantus and NovoLog per sliding scale. Further recommendations based on clinical course. Plan of care discussed with Dr. Heredia. Problems: Subjective 24 Hr Interval Summary Free Text/Dictation Patient's continues to be sedated on ventilator support, pending left sided thoracentesis today, heparin drip is held for procedure. Exam/Review of Systems Vital Signs Vitals Vital Signs Date Time Temp Pulse Resp B/P Pulse Ox O2 Delivery O2 Flow Rate FiO2 12/17/16 08:00 57 12/17/16 08:00 20 146/59 99 12/17/16 07:30 99.1 Mechanical Ventilator 12/17/16 05:45 30 Intake and Output 12/16/16 12/16/16 12/17/16 15:00 23:00 07:00 Intake Total 1084.36 ml 760.34 ml 459.0 ml Output Total 3500 ml 20 ml 20 ml Balance -2415.64 ml 740.34 ml 439.0 ml Exam Constitutional: Sedated, orally intubated on vent support Psych: no complaints Head: atraumatic, normocephalic Eyes: nl conjunctiva ENMT: nl external ears & nose Neck: non-tender, supple Respiratory: clear to auscultation, normal air movement Cardiovascular: nl pulses, regular rate and rhythm, systolic murmur Gastrointestinal: non-tender, soft Musculoskeletal: nl extremities to inspection Extremities: normal pulses Neurological: Sedated Skin: nl turgor, left big toe ulcer. Results Result Diagram: 12/17/16 0540 12/17/16 0540 Results 24 hrs Laboratory Tests Test 12/16/16 14:28 12/16/16 17:14 12/16/16 17:25 12/16/16 20:48 Bedside Glucose 182 138 200 Activated Partial Thromboplast Time 37.1 H Test 12/17/16 00:31 12/17/16 03:03 12/17/16 05:33 12/17/16 05:40 Activated Partial Thromboplast Time 47.3 H Bedside Glucose 173 156 White Blood Count 8.7 Red Blood Count 2.82 L Hemoglobin 8.8 L Hematocrit 27.3 L Mean Corpuscular Volume 96.8 Mean Corpuscular Hemoglobin 31.2 Mean Corpuscular Hemoglobin Concent 32.2 Red Cell Distribution Width 13.5 Platelet Count 199 Mean Platelet Volume 10.2 Neutrophils % 79.9 H Lymphocytes % 7.4 L Monocytes % 9.4 Eosinophils % 1.2 Basophils % 0.5 Nucleated Red Blood Cells % 0.0 Neutrophils # 6.9 Lymphocytes # 0.6 L Monocytes # 0.8 Eosinophils # 0.1 Basophils # 0.0 Nucleated Red Blood Cells # 0.0 Sodium Level 140 Potassium Level 3.8 Chloride Level 104 Carbon Dioxide Level 25 Anion Gap 15 Blood Urea Nitrogen 28 H Creatinine 5.61 H Glucose Level 149 Calcium Level 7.6 L Phosphorus Level 5.9 H Magnesium Level 2.2 Test 12/17/16 07:30 12/17/16 08:16 Prothrombin Time 14.6 H Prothrombin Time Ratio 1.1 INR International Normalized Ratio 1.14 Activated Partial Thromboplast Time 52.3 H Bedside Glucose 159 Medications Medications Current Medications Diagnostic Test (Pha) (Accu-Chek) 1 ea 02 XX Last administered on 12/17/16 02: 00; Admin Dose 1 EA; Start 12/03/16 at 02:00 Ondansetron HCl (Zofran Inj) 4 mg Q6H PRN IV NAUSEA AND/OR VOMITING Last administered on 12/13/16 01:13; Admin Dose 4 MG; Start 12/02/16 at 22:30 Miscellaneous Information 1 ea NOTE XX ; Start 12/02/16 at 23:00 Glucose (Glutose) 15 gm Q15M PRN PO DECREASED GLUCOSE; Start 12/02/16 at 23:00 Glucose (Glutose) 22.5 gm Q15M PRN PO DECREASED GLUCOSE; Start 12/02/16 at 23: 00 Dextrose (D50w Syringe) 25 ml Q15M PRN IV DECREASED GLUCOSE Last administered on 12/10/16 05:52; Admin Dose 25 ML; Start 12/02/16 at 23:00 Dextrose (D50w Syringe) 50 ml Q15M PRN IV DECREASED GLUCOSE; Start 12/02/16 at 23:00 Glucagon (Glucagen) 1 mg Q15M PRN IM DECREASED GLUCOSE; Start 12/02/16 at 23:00 Glucose (Glutose) 15 gm Q15M PRN BUCCAL DECREASED GLUCOSE; Start 12/02/16 at 23 :00 Aspirin (Halfprin) 81 mg DAILY PO Last administered on 12/17/16 08:17; Admin Dose 81 MG; Start 12/03/16 at 09:00 Gabapentin (Neurontin) 800 mg TID PO Last administered on 12/08/16 20:33; Admin Dose 800 MG; Start 12/03/16 at 09:00; Status Future Hold Meclizine HCl (Antivert) 25 mg TID PRN PO dizziness Last administered on 10:04; Admin Dose 25 MG; Start 12/02/16 at 23:00 Terazosin HCl (Hytrin) 5 mg HS PO Last administered on 12/07/16 20:28; Admin Dose 5 MG; Start 12/03/16 at 21:00; Status Future Hold Acetaminophen/ Hydrocodone Bitart ([place] (5/325)) 1 tab Q6H PRN PO PAIN LEVEL 4 -7 Last administered on 12/10/16 21:31; Admin Dose 1 TAB; Start 12/02/16 at 23: 30 Acetaminophen (Tylenol Tab) 650 mg Q6H PRN PO PAIN AND OR ELEVATED TEMP; Start 12/02/16 at 23:30 Docusate Sodium (Colace) 100 mg BID PO Last administered on 12/08/16 20:32; Admin Dose 100 MG; Start 12/03/16 at 09:00; Status Future Hold Zolpidem Tartrate (Ambien) 5 mg HS PRN PO INSOMNIA Last administered on 00:45; Admin Dose 5 MG; Start 12/02/16 at 23:30 Benazepril HCl (Lotensin) 10 mg DAILY PO Last administered on 12/07/16 08:26; Admin Dose 10 MG; Start 12/04/16 at 09:00; Status Future Hold Collagenase (Santyl) 1 applic DAILY TOP Last administered on 12/17/16 09:47; Admin Dose 1 APPLIC; Start 12/07/16 at 16:00 Lorazepam (Ativan) 2 mg Q2 PRN IV AGITATION/ANXIETY Last administered on 03:32; Admin Dose 1 MG; Start 12/09/16 at 09:30 Morphine Sulfate (morphine) 2 mg Q2H PRN IV PAIN Last administered on 12/13/16 02:00; Admin Dose 2 MG; Start 12/09/16 at 09:30 Acetaminophen 650 mg 650 mg Q6H PRN [place] ELEVATED TEMPERATURE Last administered on 12/09/16 17:53; Admin Dose 650 MG; Start 12/09/16 at 17:00 Piperacillin Sod/ Tazobactam Sod (Zosyn 2.25gm/ 50ml (Pmx)) 50 ml @ 100 mls/hr Q12 IVPB Last administered on 12/17/16 08:17; Admin Dose 100 MLS/HR; Start at 21:00 Metoprolol Tartrate 5 mg 5 mg Q4H PRN IV HR>100 Last administered on 12/10/16 22:23; Admin Dose 5 MG; Start 12/09/16 at 17:48 Phenylephrine HCl/ Dextrose (Fernandez-Syneph/D5W) 500 ml @ 75 mls/hr TITRATE IV Last administered on 12/13/16 15:21; Admin Dose 37.5 MLS/HR; Start 12/09/16 at 22:00 Amiodarone HCl (Cordarone) 200 mg BID PO Last administered on 12/17/16 08:18; Admin Dose 200 MG; Start 12/10/16 at 13:00 Hydralazine HCl (Apresoline) 10 mg Q6H PRN IV SBP>150mm hg ; Start 12/11/16 at 10:30 Morphine Sulfate 2 mg 2 mg Q2H PRN IV PAIN LEVEL 4-7; Start 12/13/16 at 10:00 Propofol (Diprivan) 100 ml @ 2.544 mls/ hr Q12H IV Last administered on 11:54; Admin Dose 12.72 MLS/HR; Start 12/13/16 at 10:00 Insulin Aspart NOVOLOG *MODERATE* ALGORI... Q4 SC Last administered on 08:27; Admin Dose 2 UNIT; Start 12/14/16 at 09:00 Caspofungin/ Sodium Chloride (Cancidas/NS) 250 ml @ 250 mls/hr Q24H IVPB Last administered on 12/17/16 12:09; Admin Dose 250 MLS/HR; Start 12/15/16 at 11:00 Metoprolol Tartrate (Lopressor) 12.5 mg BID PO Last administered on 12/16/16 20 :55; Admin Dose 12.5 MG; Start 12/16/16 at 21:00 Insulin Glargine (Lantus) 17 unit DAILY@20 SC Last administered on 12/16/16 20: 59; Admin Dose 17 UNIT; Start 12/16/16 at 20:00 Pantoprazole 40 mg 40 mg DAILY@06 IV Last administered on 12/17/16 05:30; Admin Dose 40 MG; Start 12/17/16 at 06:00 Linezolid (Zyvox 600mg/D5W (Pmx)) 300 ml @ 300 mls/hr Q12 IVPB ; Start 12/17/16 at 21:00 KIMBERLY NOYOLA December 17, 2016 13:07
--- NOTE | 2016-12-17 15:56 | CONS ---
Date/Time of Note Date/Time of Note DATE: 12/17/16 TIME: 15:54 Assessment/Plan Assessment/Plan Additional Assessment/Plan 1. Oliguric to Anuric Acute kidney injury 2/2 ATN- started on HD on 12/09/16 for acute fluid overload and Pulmonary edema 2. acute resp failure intubated on ventilator -now extubated on 12/10/2016- then again reintubated on 12/13/2016 3. Moderate to large right pleural effusion s/p Right thoracentesis 900 cc drained on 12/16/16 2. Left foot diabetic ulcer/cellulitis currently on IV antibiotics, Zosyn and vancomycin. 3. History of diabetes mellitus, insulin-dependent with lower extremity neuropathy. 4. History of hypertension. 5. History of aortic stenosis with diastolic dysfunction with ejection fraction 60% on echocardiogram. PLAN: s/p right thoracentesis 900 cc drained on 12/16/16, Plan for left thoracentesis today no HD today, will order HD for tomorrow AM will continue to follow up Consultation Date/Type/Reason Admit Date/Time Dec 02, 2016 at 21:01 Initial Consult Date Type of Consultation: NEPHROLOGY Referring Provider: VIET PARKER MD 24 HR Interval Summary Free Text/Dictation pt remains intubated s/p Right sided thoracentesis, S/p HD x 4 days in row, plan for left thoracentesis today Exam/Review of Systems Vital Signs Vitals Vital Signs Date Time Temp Pulse Resp B/P Pulse Ox O2 Delivery O2 Flow Rate FiO2 12/17/16 15:25 59 18 100 30 12/17/16 13:00 119/53 12/17/16 12:00 98.9 12/17/16 07:30 Mechanical Ventilator Intake and Output 12/16/16 12/16/16 12/17/16 14:59 22:59 06:59 Intake Total 769.19 ml 1050.51 ml 507.5 ml Output Total 3515 ml 25 ml Balance 769.19 ml -2464.49 ml 482.5 ml Exam Constitutional: frail, non-verbal, intubated sedated Head: atraumatic, normocephalic ENMT: intubated Respiratory: diminished breath sounds Cardiovascular: nl pulses, regular rate and rhythm Gastrointestinal: non-tender, soft Musculoskeletal: nl extremities to inspection Extremities: No edema Neurological: other (sedated) Skin: rash or lesions (eschar and pale tissue on plantar L 1st toe) Results Result Diagram: 12/17/16 0540 12/17/16 0540 Results 24 hrs Laboratory Tests Test 12/16/16 17:14 12/16/16 17:25 12/16/16 20:48 12/17/16 00:31 Bedside Glucose 138 200 Activated Partial Thromboplast Time 37.1 H 47.3 H Test 12/17/16 03:03 12/17/16 05:33 12/17/16 05:40 12/17/16 07:30 Bedside Glucose 173 156 White Blood Count 8.7 Red Blood Count 2.82 L Hemoglobin 8.8 L Hematocrit 27.3 L Mean Corpuscular Volume 96.8 Mean Corpuscular Hemoglobin 31.2 Mean Corpuscular Hemoglobin Concent 32.2 Red Cell Distribution Width 13.5 Platelet Count 199 Mean Platelet Volume 10.2 Neutrophils % 79.9 H Lymphocytes % 7.4 L Monocytes % 9.4 Eosinophils % 1.2 Basophils % 0.5 Nucleated Red Blood Cells % 0.0 Neutrophils # 6.9 Lymphocytes # 0.6 L Monocytes # 0.8 Eosinophils # 0.1 Basophils # 0.0 Nucleated Red Blood Cells # 0.0 Sodium Level 140 Potassium Level 3.8 Chloride Level 104 Carbon Dioxide Level 25 Anion Gap 15 Blood Urea Nitrogen 28 H Creatinine 5.61 H Glucose Level 149 Calcium Level 7.6 L Phosphorus Level 5.9 H Magnesium Level 2.2 Prothrombin Time 14.6 H Prothrombin Time Ratio 1.1 INR International Normalized Ratio 1.14 Activated Partial Thromboplast Time 52.3 H Test 12/17/16 08:16 12/17/16 14:14 Bedside Glucose 159 177 Medications Medications Current Medications Diagnostic Test (Pha) (Accu-Chek) 1 ea 02 XX Last administered on 12/17/16 02: 00; Admin Dose 1 EA; Start 12/03/16 at 02:00 Ondansetron HCl (Zofran Inj) 4 mg Q6H PRN IV NAUSEA AND/OR VOMITING Last administered on 12/13/16 01:13; Admin Dose 4 MG; Start 12/02/16 at 22:30 Miscellaneous Information 1 ea NOTE XX ; Start 12/02/16 at 23:00 Glucose (Glutose) 15 gm Q15M PRN PO DECREASED GLUCOSE; Start 12/02/16 at 23:00 Glucose (Glutose) 22.5 gm Q15M PRN PO DECREASED GLUCOSE; Start 12/02/16 at 23: 00 Dextrose (D50w Syringe) 25 ml Q15M PRN IV DECREASED GLUCOSE Last administered on 12/10/16 05:52; Admin Dose 25 ML; Start 12/02/16 at 23:00 Dextrose (D50w Syringe) 50 ml Q15M PRN IV DECREASED GLUCOSE; Start 12/02/16 at 23:00 Glucagon (Glucagen) 1 mg Q15M PRN IM DECREASED GLUCOSE; Start 12/02/16 at 23:00 Glucose (Glutose) 15 gm Q15M PRN BUCCAL DECREASED GLUCOSE; Start 12/02/16 at 23 :00 Aspirin (Halfprin) 81 mg DAILY PO Last administered on 12/17/16 08:17; Admin Dose 81 MG; Start 12/03/16 at 09:00 Gabapentin (Neurontin) 800 mg TID PO Last administered on 12/08/16 20:33; Admin Dose 800 MG; Start 12/03/16 at 09:00; Status Future Hold Meclizine HCl (Antivert) 25 mg TID PRN PO dizziness Last administered on 10:04; Admin Dose 25 MG; Start 12/02/16 at 23:00 Terazosin HCl (Hytrin) 5 mg HS PO Last administered on 12/07/16 20:28; Admin Dose 5 MG; Start 12/03/16 at 21:00; Status Future Hold Acetaminophen/ Hydrocodone Bitart ([place] (5/325)) 1 tab Q6H PRN PO PAIN LEVEL 4 -7 Last administered on 12/10/16 21:31; Admin Dose 1 TAB; Start 12/02/16 at 23: 30 Acetaminophen (Tylenol Tab) 650 mg Q6H PRN PO PAIN AND OR ELEVATED TEMP; Start 12/02/16 at 23:30 Docusate Sodium (Colace) 100 mg BID PO Last administered on 12/08/16 20:32; Admin Dose 100 MG; Start 12/03/16 at 09:00; Status Future Hold Zolpidem Tartrate (Ambien) 5 mg HS PRN PO INSOMNIA Last administered on 00:45; Admin Dose 5 MG; Start 12/02/16 at 23:30 Benazepril HCl (Lotensin) 10 mg DAILY PO Last administered on 12/07/16 08:26; Admin Dose 10 MG; Start 12/04/16 at 09:00; Status Future Hold Collagenase (Santyl) 1 applic DAILY TOP Last administered on 12/17/16 09:47; Admin Dose 1 APPLIC; Start 12/07/16 at 16:00 Lorazepam (Ativan) 2 mg Q2 PRN IV AGITATION/ANXIETY Last administered on 03:32; Admin Dose 1 MG; Start 12/09/16 at 09:30 Morphine Sulfate (morphine) 2 mg Q2H PRN IV PAIN Last administered on 12/13/16 02:00; Admin Dose 2 MG; Start 12/09/16 at 09:30 Acetaminophen 650 mg 650 mg Q6H PRN [place] ELEVATED TEMPERATURE Last administered on 12/09/16 17:53; Admin Dose 650 MG; Start 12/09/16 at 17:00 Piperacillin Sod/ Tazobactam Sod (Zosyn 2.25gm/ 50ml (Pmx)) 50 ml @ 100 mls/hr Q12 IVPB Last administered on 12/17/16 08:17; Admin Dose 100 MLS/HR; Start at 21:00 Metoprolol Tartrate 5 mg 5 mg Q4H PRN IV HR>100 Last administered on 12/10/16 22:23; Admin Dose 5 MG; Start 12/09/16 at 17:48 Phenylephrine HCl/ Dextrose (Fernandez-Syneph/D5W) 500 ml @ 75 mls/hr TITRATE IV Last administered on 12/13/16 15:21; Admin Dose 37.5 MLS/HR; Start 12/09/16 at 22:00 Amiodarone HCl (Cordarone) 200 mg BID PO Last administered on 12/17/16 08:18; Admin Dose 200 MG; Start 12/10/16 at 13:00 Hydralazine HCl (Apresoline) 10 mg Q6H PRN IV SBP>150mm hg ; Start 12/11/16 at 10:30 Morphine Sulfate 2 mg 2 mg Q2H PRN IV PAIN LEVEL 4-7; Start 12/13/16 at 10:00 Propofol (Diprivan) 100 ml @ 2.544 mls/ hr Q12H IV Last administered on 11:54; Admin Dose 12.72 MLS/HR; Start 12/13/16 at 10:00 Insulin Aspart NOVOLOG *MODERATE* ALGORI... Q4 SC Last administered on 14:18; Admin Dose 2 UNIT; Start 12/14/16 at 09:00 Caspofungin/ Sodium Chloride (Cancidas/NS) 250 ml @ 250 mls/hr Q24H IVPB Last administered on 12/17/16 12:09; Admin Dose 250 MLS/HR; Start 12/15/16 at 11:00 Metoprolol Tartrate (Lopressor) 12.5 mg BID PO Last administered on 12/16/16 20 :55; Admin Dose 12.5 MG; Start 12/16/16 at 21:00 Insulin Glargine (Lantus) 17 unit DAILY@20 SC Last administered on 12/16/16 20: 59; Admin Dose 17 UNIT; Start 12/16/16 at 20:00 Pantoprazole 40 mg 40 mg DAILY@06 IV Last administered on 12/17/16 05:30; Admin Dose 40 MG; Start 12/17/16 at 06:00 Linezolid (Zyvox 600mg/D5W (Pmx)) 300 ml @ 300 mls/hr Q12 IVPB ; Start 12/17/16 at 21:00 TASHIA MCGARRY MD December 17, 2016 15:56
--- NOTE | 2016-12-17 19:06 | RADRPT ---
PROCEDURE: US Chest. CLINICAL INDICATION: Shortness of breath. TECHNIQUE: Ultrasound of the left hemithorax was performed in the axial and sagittal planes. COMPARISON: No prior study is available for comparison. FINDINGS: There is a small left pleural effusion. There is not enough fluid to safely aspirate. Thoracentesis was not performed. IMPRESSION: 1. Small left pleural effusion. 2. Thoracentesis was not performed. RPTAT: QQ .Bruce Zurita MD, MD Date Time Electronically viewed and signed by .Bruce Zurita MD, on 12/17/2016 18:00 .R/
[2016-12-17] MEDS: INSULIN GLARGINE [LANtus] 3 ML PEN SC SCH (20:00)
[2016-12-17] MEDS: LINEZOLID 600 MG/D5W (PMX) 300 ML IVPB SCH (21:02)
[2016-12-18] VITALS (49 sets, daily range): BP systolic 103–168; BP diastolic 47–82; PULSE 58–98; RESP 14–24
[2016-12-18] MEDS: INSULIN ASPART [NOVOLOG] 3 ML PEN SC SCH ×6 (01:10→20:30)
[2016-12-18] MEDS: ACCU-CHEK XX SCH (02:00)
[2016-12-18 03:30] LABS: ADD SCAN DIFF NO
[2016-12-18 03:40] LABS: ABNORMAL IP MESSAGE 1; BASOPHILS % 0.2 % (0.0-2.0); EOSINOPHILS # 0.1 10^3/ul (0.0-0.5); EOSINOPHILS % 1.2 % (0.0-7.0); HEMATOCRIT 26.7 % (42.0-52.0); HEMOGLOBIN 8.6 g/dl (14.0-18.0); LYMPHOCYTES # 0.6 10^3/ul (0.8-2.9); MEAN CORPUSCULAR HEMOGLOBIN 31.2 pg (29.0-33.0); MEAN CORPUSCULAR HGB CONC 32.2 g/dl (32.0-37.0); MEAN CORPUSCULAR VOLUME 96.7 fl (82.0-101.0); MONOCYTE # 0.9 10^3/ul (0.3-0.9); MONOCYTES % 10.5 % (0.0-11.0); NEUTROPHIL # 6.8 10^3/ul (1.6-7.5); NEUTROPHILS % 78.9 % (39.0-77.0); PLATELET COUNT 179 10^3/UL (140-415); RED BLOOD COUNT 2.76 10^6/ul (4.70-6.10); RED CELL DISTRIBUTION WIDTH 13.7 % (11.5-14.5); WHITE BLOOD COUNT 8.6 10^3/ul (4.8-10.8)
[2016-12-18] MEDS: PROPOFOL 100 ML IV SCH (03:45)
[2016-12-18 03:48] LABS: CREATININE 7.24 mg/dl (0.61-1.24); LYMPHOCYTES % 6.9 % (15.0-51.0)
[2016-12-18 03:49] LABS: CALCIUM 7.7 mg/dl (8.4-10.2); MAGNESIUM 2.3 mg/dl (1.7-2.5); PHOSPHORUS 7.3 mg/dl (2.5-4.9)
[2016-12-18] MEDS ORDERED: HEPARIN 1000 UNITS/ML 10 ML INJ IV PRN (04:00)
[2016-12-18] MEDS: PANTOPRAZOLE 40 MG INJ IV SCH (05:29)
[2016-12-18] MEDS: AMIODARONE 200 MG TAB PO SCH ×2 (08:45→20:23)
[2016-12-18] MEDS: METOPROLOL 25 MG TAB PO SCH ×2 (08:46→20:24)
[2016-12-18] MEDS: PIPER-TAZO 2.25 GM (PMX) 50 ML IVPB SCH ×2 (08:46→20:25)
[2016-12-18] MEDS: LINEZOLID 600 MG/D5W (PMX) 300 ML IVPB SCH ×2 (08:46→20:32)
[2016-12-18] MEDS: ASPIRIN (EC) 81 MG TAB PO SCH (08:46)
[2016-12-18] MEDS: COLLAGENASE 30 GM TUBE TOP SCH (08:48)
--- NOTE | 2016-12-18 09:20 | CONS ---
Date/Time of Note Date/Time of Note DATE: 12/18/16 TIME: 09:19 Consult Date/Type/Reason Admit Date/Time Dec 02, 2016 at 21:01 Initial Consult Date 12/03/16 Type of Consultation: Pulmonary ICU Ordering Provider: VIET PARKER MD Subjective Patient awake alert this morning on mechanical ventilation remains hemodynamically stable underwent hemodialysis with 4 L of fluid removed Objective Vital Signs Date Time Temp Pulse Resp B/P Pulse Ox O2 Delivery O2 Flow Rate FiO2 12/18/16 09:00 77 18 168/67 100 Mechanical Ventilator 12/18/16 08:00 30 12/18/16 08:00 99.8 Intake and Output 12/17/16 12/17/16 12/18/16 15:00 23:00 07:00 Intake Total 709.32 ml 829.54 ml 564.908 ml Output Total 105 ml 60 ml Balance 709.32 ml 724.54 ml 504.908 ml Exam PHYSICAL EXAMINATION: GENERAL: Elderly [place] gentleman, intubated on mechanical ventilation, appears comfortable at rest, no acute distress. VITAL SIGNS: As above NECK: Supple. No JVD or lymphadenopathy. CARDIAC: S1, S2, no added sounds or murmurs. CHEST: Diminished air entry bilaterally. ABDOMEN: Soft, nontender. No guarding or rebound. EXTREMITIES: No cyanosis, clubbing, edema. NEUROLOGIC: Generalized weakness, but no focal deficits. Results/Medications Result Diagram: 12/18/16 0320 12/18/16 0320 Results 24 hrs Laboratory Tests Test 12/17/16 14:14 12/17/16 17:04 12/17/16 17:20 12/17/16 20:59 Bedside Glucose 177 132 155 Activated Partial Thromboplast Time 54.3 H Test 12/17/16 23:55 12/18/16 01:06 12/18/16 03:20 12/18/16 04:49 Activated Partial Thromboplast Time > 180.0 *H 33.1 Bedside Glucose 193 198 White Blood Count 8.6 Red Blood Count 2.76 L Hemoglobin 8.6 L Hematocrit 26.7 L Mean Corpuscular Volume 96.7 Mean Corpuscular Hemoglobin 31.2 Mean Corpuscular Hemoglobin Concent 32.2 Red Cell Distribution Width 13.7 Platelet Count 179 Mean Platelet Volume 10.0 Neutrophils % 78.9 H Lymphocytes % 6.9 L Monocytes % 10.5 Eosinophils % 1.2 Basophils % 0.2 Nucleated Red Blood Cells % 0.0 Neutrophils # 6.8 Lymphocytes # 0.6 L Monocytes # 0.9 Eosinophils # 0.1 Basophils # 0.0 Nucleated Red Blood Cells # 0.0 Sodium Level 139 Potassium Level 4.0 Chloride Level 103 Carbon Dioxide Level 23 Anion Gap 17 H Blood Urea Nitrogen 39 #H Creatinine 7.24 H Glucose Level 179 Calcium Level 7.7 L Phosphorus Level 7.3 H Magnesium Level 2.3 Test 12/18/16 08:44 Bedside Glucose 188 Medications Current Medications Diagnostic Test (Pha) (Accu-Chek) 1 ea 02 XX Last administered on 12/18/16 02: 00; Admin Dose 1 EA; Start 12/03/16 at 02:00 Ondansetron HCl (Zofran Inj) 4 mg Q6H PRN IV NAUSEA AND/OR VOMITING Last administered on 12/13/16 01:13; Admin Dose 4 MG; Start 12/02/16 at 22:30 Miscellaneous Information 1 ea NOTE XX ; Start 12/02/16 at 23:00 Glucose (Glutose) 15 gm Q15M PRN PO DECREASED GLUCOSE; Start 12/02/16 at 23:00 Glucose (Glutose) 22.5 gm Q15M PRN PO DECREASED GLUCOSE; Start 12/02/16 at 23: 00 Dextrose (D50w Syringe) 25 ml Q15M PRN IV DECREASED GLUCOSE Last administered on 12/10/16 05:52; Admin Dose 25 ML; Start 12/02/16 at 23:00 Dextrose (D50w Syringe) 50 ml Q15M PRN IV DECREASED GLUCOSE; Start 12/02/16 at 23:00 Glucagon (Glucagen) 1 mg Q15M PRN IM DECREASED GLUCOSE; Start 12/02/16 at 23:00 Glucose (Glutose) 15 gm Q15M PRN BUCCAL DECREASED GLUCOSE; Start 12/02/16 at 23 :00 Aspirin (Halfprin) 81 mg DAILY PO Last administered on 12/18/16 08:46; Admin Dose 81 MG; Start 12/03/16 at 09:00 Gabapentin (Neurontin) 800 mg TID PO Last administered on 12/08/16 20:33; Admin Dose 800 MG; Start 12/03/16 at 09:00; Status Future Hold Meclizine HCl (Antivert) 25 mg TID PRN PO dizziness Last administered on 10:04; Admin Dose 25 MG; Start 12/02/16 at 23:00 Terazosin HCl (Hytrin) 5 mg HS PO Last administered on 12/07/16 20:28; Admin Dose 5 MG; Start 12/03/16 at 21:00; Status Future Hold Acetaminophen/ Hydrocodone Bitart ([place] (5/325)) 1 tab Q6H PRN PO PAIN LEVEL 4 -7 Last administered on 12/10/16 21:31; Admin Dose 1 TAB; Start 12/02/16 at 23: 30 Acetaminophen (Tylenol Tab) 650 mg Q6H PRN PO PAIN AND OR ELEVATED TEMP; Start 12/02/16 at 23:30 Docusate Sodium (Colace) 100 mg BID PO Last administered on 12/08/16 20:32; Admin Dose 100 MG; Start 12/03/16 at 09:00; Status Future Hold Zolpidem Tartrate (Ambien) 5 mg HS PRN PO INSOMNIA Last administered on 00:45; Admin Dose 5 MG; Start 12/02/16 at 23:30 Benazepril HCl (Lotensin) 10 mg DAILY PO Last administered on 12/07/16 08:26; Admin Dose 10 MG; Start 12/04/16 at 09:00; Status Future Hold Collagenase (Santyl) 1 applic DAILY TOP Last administered on 12/18/16 08:48; Admin Dose 1 APPLIC; Start 12/07/16 at 16:00 Lorazepam (Ativan) 2 mg Q2 PRN IV AGITATION/ANXIETY Last administered on 03:32; Admin Dose 1 MG; Start 12/09/16 at 09:30 Morphine Sulfate (morphine) 2 mg Q2H PRN IV PAIN Last administered on 12/13/16 02:00; Admin Dose 2 MG; Start 12/09/16 at 09:30 Acetaminophen 650 mg 650 mg Q6H PRN [place] ELEVATED TEMPERATURE Last administered on 12/09/16 17:53; Admin Dose 650 MG; Start 12/09/16 at 17:00 Piperacillin Sod/ Tazobactam Sod (Zosyn 2.25gm/ 50ml (Pmx)) 50 ml @ 100 mls/hr Q12 IVPB Last administered on 12/18/16 08:46; Admin Dose 100 MLS/HR; Start at 21:00 Metoprolol Tartrate 5 mg 5 mg Q4H PRN IV HR>100 Last administered on 12/10/16 22:23; Admin Dose 5 MG; Start 12/09/16 at 17:48 Phenylephrine HCl/ Dextrose (Fernandez-Syneph/D5W) 500 ml @ 75 mls/hr TITRATE IV Last administered on 12/13/16 15:21; Admin Dose 37.5 MLS/HR; Start 12/09/16 at 22:00 Amiodarone HCl (Cordarone) 200 mg BID PO Last administered on 12/18/16 08:45; Admin Dose 200 MG; Start 12/10/16 at 13:00 Hydralazine HCl (Apresoline) 10 mg Q6H PRN IV SBP>150mm hg ; Start 12/11/16 at 10:30 Morphine Sulfate 2 mg 2 mg Q2H PRN IV PAIN LEVEL 4-7; Start 12/13/16 at 10:00 Propofol (Diprivan) 100 ml @ 2.544 mls/ hr Q12H IV Last administered on 03:45; Admin Dose 10.176 MLS/HR; Start 12/13/16 at 10:00 Insulin Aspart NOVOLOG *MODERATE* ALGORI... Q4 SC Last administered on 08:47; Admin Dose 4 UNIT; Start 12/14/16 at 09:00 Caspofungin/ Sodium Chloride (Cancidas/NS) 250 ml @ 250 mls/hr Q24H IVPB Last administered on 12/17/16 12:09; Admin Dose 250 MLS/HR; Start 12/15/16 at 11:00 Metoprolol Tartrate (Lopressor) 12.5 mg BID PO Last administered on 12/18/16 08 :46; Admin Dose 12.5 MG; Start 12/16/16 at 21:00 Insulin Glargine (Lantus) 17 unit DAILY@20 SC Last administered on 12/16/16 20: 59; Admin Dose 17 UNIT; Start 12/16/16 at 20:00 Pantoprazole 40 mg 40 mg DAILY@06 IV Last administered on 12/18/16 05:29; Admin Dose 40 MG; Start 12/17/16 at 06:00 Linezolid (Zyvox 600mg/D5W (Pmx)) 300 ml @ 300 mls/hr Q12 IVPB Last administered on 12/18/16 08:46; Admin Dose 300 MLS/HR; Start 12/17/16 at 21:00 Heparin Sodium (Porcine) (Heparin (1000 Units/ml)) 4,000 unit PRN PRN IV PENDING LAB VALUE Last administered on 12/18/16 04:11; Admin Dose 4,000 UNIT; Start 12/18/16 at 04:00 Assessment/Plan Chief Complaint/Hosp Course IMPRESSION AND PLAN: 1. Acute kidney injury. On hemodialysis 2. Hypoxemic respiratory failure possibly secondary to aspiration pneumonia 3. Underlying pulmonary edema secondary to renal insufficiency with volume overload, 4. Hypercapnic respiratory failure. 5. Diabetic foot ulcer 6. History of diabetes mellitus The patient will require 1. Continued mechanical ventilation. CPAP trial this morning 2. Renal recommendations. Hemodialysis today per nephrology, aggressive volume removal if tolerated 3. Antibiotics for aspiration pneumonia, ID recommendations 4. DVT and GI prophylaxis. 5. Wound care per vascular surgery and podiatry Disposition Continue ICU care Problems: AUDELIA BARRIENTOS MD, [facility] December 18, 2016 09:20
[2016-12-18 09:37] LABS: AADO2 Arterial 89.3 mmHg (7.0-24.0); Allen Test ACCEPTAB; Arterial Base Excess -3.2 mmol/L (-3.0-3); Arterial COHb 0.3 % (0.0-3.0); Arterial Fraction of Oxyhgb 95.5 % (93.0-99.0); Arterial HCO3 20.6 mmol/L (22.0-26.0); Arterial MetHb 0.2 % (0.0-1.5); MODE VENT - AC
--- NOTE | 2016-12-18 09:55 | PN ---
Date/Time of Note Date/Time of Note DATE: 12/18/16 TIME: 09:48 Assessment/Plan VTE Prophylaxis VTE Prophylaxis Intervention: other Lines/Catheters IV [facility] ([facility] PICC Line Central line still needed: Yes Urinary Cath still in place: Yes Reason Cath still needed: urinary retention Assessment/Plan Assessment/Plan - Acute respiratory failure secondary to pulmonary edema, patient is currently intubated, on CPAP- tolerating Dr. Alvarez is following from pulmonology standpoint. - Bilateral pleural effusion, this post right sided thoracentesis with removal of 900 cc of fluid,NO left sided thoracentesis - Acute renal failure, Dr. Remy is following in nephrology consultation. Continue hemodialysis per nephrology. - sp HD- 4 L REMOVED - Acute to subacute right occipital lobe ischemic infarct per CT, Dr Morris is following in neurology consultation. Will obtain MRI of the brain the patient is more stable. - Paroxysmal atrial fibrillation and positive troponin. Dr. Cobian is following and cardiology consultation. - on heparin drip - Fungemia, om Caspofungin. Dr. Pascual is following in infection disease consultation. - Diabetic foot ulcer of the left foot, Dr Lin is following in podiatry consultation. - Cellulitis of left foot, 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 and left fourth proximal phalanx per bone scan, continue antibiotics, Continue antibiotics per ID. - Aortic stenosis - Diastolic dysfunction congestive heart failure with preserved ejection fraction of 60%. - DM, Hgb A1c is 8.7, continue Lantus and NovoLog per sliding scale. Further recommendations based on clinical course. Total critical care time spent is 30 mins.Plan of care discussed with Dr. Heredia. Subjective 24 Hr Interval Summary Free Text/Dictation alert, awake, on CPAP- tolerating so far, follows simple commands,sp rt thoracentesis- 900 cc fluid removed. Left thoracentesis not peformed. sp HD- 4 L REMOVED. Son at bed side - all Qs ANSWERED. DW STAFF Eyes: no complaints Cardiovascular: no complaints Gastrointestinal: no complaints Exam/Review of Systems Vital Signs Vitals Vital Signs Date Time Temp Pulse Resp B/P Pulse Ox O2 Delivery O2 Flow Rate FiO2 12/18/16 09:00 77 18 168/67 100 Mechanical Ventilator 12/18/16 08:00 30 12/18/16 08:00 99.8 Intake and Output 12/17/16 12/17/16 12/18/16 15:00 23:00 07:00 Intake Total 709.32 ml 829.54 ml 564.908 ml Output Total 105 ml 60 ml Balance 709.32 ml 724.54 ml 504.908 ml Exam Constitutional: alert, well developed Psych: nl mood/affect Eyes: EOMI, nl sclera ENMT: nl external ears & nose Neck: non-tender Respiratory: diminished breath sounds Cardiovascular: nl pulses Gastrointestinal: non-tender, soft Musculoskeletal: other Neurological: other (ALERT, FOLLOWS SIMPLE commands) Skin: other Results Result Diagram: 12/18/16 0320 12/18/16 0320 Results 24 hrs Laboratory Tests Test 12/17/16 14:14 12/17/16 17:04 12/17/16 17:20 12/17/16 20:59 Bedside Glucose 177 132 155 Activated Partial Thromboplast Time 54.3 H Test 12/17/16 23:55 12/18/16 01:06 12/18/16 03:20 12/18/16 04:49 Activated Partial Thromboplast Time > 180.0 *H 33.1 Bedside Glucose 193 198 White Blood Count 8.6 Red Blood Count 2.76 L Hemoglobin 8.6 L Hematocrit 26.7 L Mean Corpuscular Volume 96.7 Mean Corpuscular Hemoglobin 31.2 Mean Corpuscular Hemoglobin Concent 32.2 Red Cell Distribution Width 13.7 Platelet Count 179 Mean Platelet Volume 10.0 Neutrophils % 78.9 H Lymphocytes % 6.9 L Monocytes % 10.5 Eosinophils % 1.2 Basophils % 0.2 Nucleated Red Blood Cells % 0.0 Neutrophils # 6.8 Lymphocytes # 0.6 L Monocytes # 0.9 Eosinophils # 0.1 Basophils # 0.0 Nucleated Red Blood Cells # 0.0 Sodium Level 139 Potassium Level 4.0 Chloride Level 103 Carbon Dioxide Level 23 Anion Gap 17 H Blood Urea Nitrogen 39 #H Creatinine 7.24 H Glucose Level 179 Calcium Level 7.7 L Phosphorus Level 7.3 H Magnesium Level 2.3 Test 12/18/16 07:37 12/18/16 08:44 Blood Gas Specimen Source Blood arterial Arterial Blood Date Drawn 12/18/2016 9:30:32 AM Arterial Blood pH (Temp corrected) 7.417 Arterial Blood pCO2 (Temp correct) 32.7 L Arterial Blood pO2 (Temp corrected) 86.2 Arterial Blood HCO3 20.6 L Arterial Blood Base Excess -3.2 L Arterial Blood Oxygen Saturation 96.0 Derek Test ACCEPTAB Arterial Blood Gas Puncture Site Right Radial Arterial Blood Carboxyhemoglobin 0.3 Arterial Blood Methemoglobin 0.2 Blood Gas A-a O2 Differential 89.3 H Oxyhemoglobin Percent 95.5 Total Hemoglobin 11.0 L Blood Gas Temperature 37.0 Blood Gas Respiration Rate 18.0 Blood Gas Actual Respiration Rate 20 Blood Gas Modality VENT - AC FiO2 30.0 Blood Gas Tidal Volume 550.0 Blood Gas Low PEEP Setting 5.0 Blood Gas Notified Whom TM Blood Gas Notified Time 12/18/2016 9:37:18 AM Bedside Glucose 188 Medications Medications Current Medications Diagnostic Test (Pha) (Accu-Chek) 1 ea 02 XX Last administered on 12/18/16 02: 00; Admin Dose 1 EA; Start 12/03/16 at 02:00 Ondansetron HCl (Zofran Inj) 4 mg Q6H PRN IV NAUSEA AND/OR VOMITING Last administered on 12/13/16 01:13; Admin Dose 4 MG; Start 12/02/16 at 22:30 Miscellaneous Information 1 ea NOTE XX ; Start 12/02/16 at 23:00 Glucose (Glutose) 15 gm Q15M PRN PO DECREASED GLUCOSE; Start 12/02/16 at 23:00 Glucose (Glutose) 22.5 gm Q15M PRN PO DECREASED GLUCOSE; Start 12/02/16 at 23: 00 Dextrose (D50w Syringe) 25 ml Q15M PRN IV DECREASED GLUCOSE Last administered on 12/10/16 05:52; Admin Dose 25 ML; Start 12/02/16 at 23:00 Dextrose (D50w Syringe) 50 ml Q15M PRN IV DECREASED GLUCOSE; Start 12/02/16 at 23:00 Glucagon (Glucagen) 1 mg Q15M PRN IM DECREASED GLUCOSE; Start 12/02/16 at 23:00 Glucose (Glutose) 15 gm Q15M PRN BUCCAL DECREASED GLUCOSE; Start 12/02/16 at 23 :00 Aspirin (Halfprin) 81 mg DAILY PO Last administered on 12/18/16 08:46; Admin Dose 81 MG; Start 12/03/16 at 09:00 Gabapentin (Neurontin) 800 mg TID PO Last administered on 12/08/16 20:33; Admin Dose 800 MG; Start 12/03/16 at 09:00; Status Future Hold Meclizine HCl (Antivert) 25 mg TID PRN PO dizziness Last administered on 10:04; Admin Dose 25 MG; Start 12/02/16 at 23:00 Terazosin HCl (Hytrin) 5 mg HS PO Last administered on 12/07/16 20:28; Admin Dose 5 MG; Start 12/03/16 at 21:00; Status Future Hold Acetaminophen/ Hydrocodone Bitart ([place] (5/325)) 1 tab Q6H PRN PO PAIN LEVEL 4 -7 Last administered on 12/10/16 21:31; Admin Dose 1 TAB; Start 12/02/16 at 23: 30 Acetaminophen (Tylenol Tab) 650 mg Q6H PRN PO PAIN AND OR ELEVATED TEMP; Start 12/02/16 at 23:30 Docusate Sodium (Colace) 100 mg BID PO Last administered on 12/08/16 20:32; Admin Dose 100 MG; Start 12/03/16 at 09:00; Status Future Hold Zolpidem Tartrate (Ambien) 5 mg HS PRN PO INSOMNIA Last administered on 00:45; Admin Dose 5 MG; Start 12/02/16 at 23:30 Benazepril HCl (Lotensin) 10 mg DAILY PO Last administered on 12/07/16 08:26; Admin Dose 10 MG; Start 12/04/16 at 09:00; Status Future Hold Collagenase (Santyl) 1 applic DAILY TOP Last administered on 12/18/16 08:48; Admin Dose 1 APPLIC; Start 12/07/16 at 16:00 Lorazepam (Ativan) 2 mg Q2 PRN IV AGITATION/ANXIETY Last administered on 03:32; Admin Dose 1 MG; Start 12/09/16 at 09:30 Morphine Sulfate (morphine) 2 mg Q2H PRN IV PAIN Last administered on 12/13/16 02:00; Admin Dose 2 MG; Start 12/09/16 at 09:30 Acetaminophen 650 mg 650 mg Q6H PRN [place] ELEVATED TEMPERATURE Last administered on 12/09/16 17:53; Admin Dose 650 MG; Start 12/09/16 at 17:00 Piperacillin Sod/ Tazobactam Sod (Zosyn 2.25gm/ 50ml (Pmx)) 50 ml @ 100 mls/hr Q12 IVPB Last administered on 12/18/16 08:46; Admin Dose 100 MLS/HR; Start at 21:00 Metoprolol Tartrate 5 mg 5 mg Q4H PRN IV HR>100 Last administered on 12/10/16 22:23; Admin Dose 5 MG; Start 12/09/16 at 17:48 Phenylephrine HCl/ Dextrose (Fernandez-Syneph/D5W) 500 ml @ 75 mls/hr TITRATE IV Last administered on 12/13/16 15:21; Admin Dose 37.5 MLS/HR; Start 12/09/16 at 22:00 Amiodarone HCl (Cordarone) 200 mg BID PO Last administered on 12/18/16 08:45; Admin Dose 200 MG; Start 12/10/16 at 13:00 Hydralazine HCl (Apresoline) 10 mg Q6H PRN IV SBP>150mm hg ; Start 12/11/16 at 10:30 Morphine Sulfate 2 mg 2 mg Q2H PRN IV PAIN LEVEL 4-7; Start 12/13/16 at 10:00 Propofol (Diprivan) 100 ml @ 2.544 mls/ hr Q12H IV Last administered on 03:45; Admin Dose 10.176 MLS/HR; Start 12/13/16 at 10:00 Insulin Aspart NOVOLOG *MODERATE* ALGORI... Q4 SC Last administered on 08:47; Admin Dose 4 UNIT; Start 12/14/16 at 09:00 Caspofungin/ Sodium Chloride (Cancidas/NS) 250 ml @ 250 mls/hr Q24H IVPB Last administered on 12/17/16 12:09; Admin Dose 250 MLS/HR; Start 12/15/16 at 11:00 Metoprolol Tartrate (Lopressor) 12.5 mg BID PO Last administered on 12/18/16 08 :46; Admin Dose 12.5 MG; Start 12/16/16 at 21:00 Insulin Glargine (Lantus) 17 unit DAILY@20 SC Last administered on 12/16/16 20: 59; Admin Dose 17 UNIT; Start 12/16/16 at 20:00 Pantoprazole 40 mg 40 mg DAILY@06 IV Last administered on 12/18/16 05:29; Admin Dose 40 MG; Start 12/17/16 at 06:00 Linezolid (Zyvox 600mg/D5W (Pmx)) 300 ml @ 300 mls/hr Q12 IVPB Last administered on 12/18/16 08:46; Admin Dose 300 MLS/HR; Start 12/17/16 at 21:00 Heparin Sodium (Porcine) (Heparin (1000 Units/ml)) 4,000 unit PRN PRN IV PENDING LAB VALUE Last administered on 12/18/16 04:11; Admin Dose 4,000 UNIT; Start 12/18/16 at 04:00 YULIANA SIMMONS December 18, 2016 09:55
--- NOTE | 2016-12-18 10:06 | RADRPT ---
PROCEDURE: XR Chest 1 View. CLINICAL INDICATION: Shortness of breath. TECHNIQUE: AP view of the chest was obtained. COMPARISON: Yesterday. FINDINGS: The heart size is within normal limits. Calcified atherosclerosis is noted in the aorta. Endotrache al and nasogastric tubes are stable. Central pulmonary vascular congestion and mild interstitial pr ominence in both lungs is unchanged. Patchy infiltrates in the bilateral lower lobes are stable. Sm all left pleural effusion is unchanged. Osseous structures are unchanged. IMPRESSION: Calcified atherosclerosis in the aorta. Stable mild central pulmonary vascular congestion and interstitial prominence in both lungs. Stable patchy lower lung infiltrates and small left pleural effusion. RPTAT: AA .Bishnu Ramos MD, Date Time Electronically viewed and signed by .Bishnu Ramos MD, on 12/18/2016 10:05 .P/
[2016-12-18] MEDS: ACETAMINOPHEN 325 MG TAB PO PRN (10:44)
[2016-12-18] MEDS: CASPOFUNGIN 50 MG in SOD CHLORIDE 0.9% 250 ML IVPB SCH (10:44)
[2016-12-18] MEDS: hydrALAzine 20 MG INJ IV PRN ×2 (10:45→22:15)
--- NOTE | 2016-12-18 10:59 | CONS ---
Date/Time of Note Date/Time of Note DATE: 12/18/16 TIME: 10:56 Assessment/Plan Assessment/Plan Additional Assessment/Plan 1. Atrial fibrillation-currently in SR with PAC's - now in sinus 2. Hypotension-resolved off of fernandez - better now 3. Abnormal electrocardiogram with inferolateral T-wave inversions. 4. Respiratory failure-s/p intubation and remains - weaning nw, hope to extubate soon 5. Nonhealing toe ulceration. 6. Peripheral arterial disease by arterial ultrasound of the lower extremities this admission. 7. Diabetes mellitus- medications reviewed 8. Fevers. 9. Positive troponin-downtrended 10.Bradycardia-mainly 50's Consultation Date/Type/Reason Admit Date/Time Dec 02, 2016 at 21:01 Initial Consult Date 12/03/16 Type of Consultation: Pulmonary ICU Referring Provider: VIET PARKER MD 24 HR Interval Summary Free Text/Dictation NO acute events - BP stable - in sinus, con;t to wean. ROS: No fever, no chills, no nausea, no vomiting, no diarrhea/constipation No recent weight changes No chest pain, no PND, no orthopnea No dizziness, blurred vision No thirst, no heat or cold intolerance Exam/Review of Systems Vital Signs Vitals Vital Signs Date Time Temp Pulse Resp B/P Pulse Ox O2 Delivery O2 Flow Rate FiO2 12/18/16 10:00 80 22 168/76 100 Mechanical Ventilator 12/18/16 08:00 30 12/18/16 08:00 99.8 Intake and Output 12/17/16 12/17/16 12/18/16 15:00 23:00 07:00 Intake Total 709.32 ml 829.54 ml 564.908 ml Output Total 105 ml 60 ml Balance 709.32 ml 724.54 ml 504.908 ml Exam General: WN/WD/NAD, AOx 3 HEENT: Unicetric/atraumatic/EOMI (follow commands), intubated NECK: JVD elevated, no thyromegaly Lymph: no lymphadenopathy HEART: regular with no S3, II/ systolic murmur at apex LUNGS: Coarse sounds ABD: soft, NT, ND, +BS : Intact Neuro: non focal SKIN: chronic changes EXT: trace edema Results Result Diagram: 12/18/16 03212/18/16 0320 Results 24 hrs Laboratory Tests Test 12/17/16 14:14 12/17/16 17:04 12/17/16 17:20 12/17/16 20:59 Bedside Glucose 177 132 155 Activated Partial Thromboplast Time 54.3 H Test 12/17/16 23:55 12/18/16 01:06 12/18/16 03:20 12/18/16 04:49 Activated Partial Thromboplast Time > 180.0 *H 33.1 Bedside Glucose 193 198 White Blood Count 8.6 Red Blood Count 2.76 L Hemoglobin 8.6 L Hematocrit 26.7 L Mean Corpuscular Volume 96.7 Mean Corpuscular Hemoglobin 31.2 Mean Corpuscular Hemoglobin Concent 32.2 Red Cell Distribution Width 13.7 Platelet Count 179 Mean Platelet Volume 10.0 Neutrophils % 78.9 H Lymphocytes % 6.9 L Monocytes % 10.5 Eosinophils % 1.2 Basophils % 0.2 Nucleated Red Blood Cells % 0.0 Neutrophils # 6.8 Lymphocytes # 0.6 L Monocytes # 0.9 Eosinophils # 0.1 Basophils # 0.0 Nucleated Red Blood Cells # 0.0 Sodium Level 139 Potassium Level 4.0 Chloride Level 103 Carbon Dioxide Level 23 Anion Gap 17 H Blood Urea Nitrogen 39 #H Creatinine 7.24 H Glucose Level 179 Calcium Level 7.7 L Phosphorus Level 7.3 H Magnesium Level 2.3 Test 12/18/16 07:37 12/18/16 08:44 Blood Gas Specimen Source Blood arterial Arterial Blood Date Drawn 12/18/2016 9:30:32 AM Arterial Blood pH (Temp corrected) 7.417 Arterial Blood pCO2 (Temp correct) 32.7 L Arterial Blood pO2 (Temp corrected) 86.2 Arterial Blood HCO3 20.6 L Arterial Blood Base Excess -3.2 L Arterial Blood Oxygen Saturation 96.0 Derek Test ACCEPTAB Arterial Blood Gas Puncture Site Right Radial Arterial Blood Carboxyhemoglobin 0.3 Arterial Blood Methemoglobin 0.2 Blood Gas A-a O2 Differential 89.3 H Oxyhemoglobin Percent 95.5 Total Hemoglobin 11.0 L Blood Gas Temperature 37.0 Blood Gas Respiration Rate 18.0 Blood Gas Actual Respiration Rate 20 Blood Gas Modality VENT - AC FiO2 30.0 Blood Gas Tidal Volume 550.0 Blood Gas Low PEEP Setting 5.0 Blood Gas Notified Whom TM Blood Gas Notified Time 12/18/2016 9:37:18 AM Bedside Glucose 188 Medications Medications Current Medications Diagnostic Test (Pha) (Accu-Chek) 1 ea 02 XX Last administered on 12/18/16 02: 00; Admin Dose 1 EA; Start 12/03/16 at 02:00 Ondansetron HCl (Zofran Inj) 4 mg Q6H PRN IV NAUSEA AND/OR VOMITING Last administered on 12/13/16 01:13; Admin Dose 4 MG; Start 12/02/16 at 22:30 Miscellaneous Information 1 ea NOTE XX ; Start 12/02/16 at 23:00 Glucose (Glutose) 15 gm Q15M PRN PO DECREASED GLUCOSE; Start 12/02/16 at 23:00 Glucose (Glutose) 22.5 gm Q15M PRN PO DECREASED GLUCOSE; Start 12/02/16 at 23: 00 Dextrose (D50w Syringe) 25 ml Q15M PRN IV DECREASED GLUCOSE Last administered on 12/10/16 05:52; Admin Dose 25 ML; Start 12/02/16 at 23:00 Dextrose (D50w Syringe) 50 ml Q15M PRN IV DECREASED GLUCOSE; Start 12/02/16 at 23:00 Glucagon (Glucagen) 1 mg Q15M PRN IM DECREASED GLUCOSE; Start 12/02/16 at 23:00 Glucose (Glutose) 15 gm Q15M PRN BUCCAL DECREASED GLUCOSE; Start 12/02/16 at 23 :00 Aspirin (Halfprin) 81 mg DAILY PO Last administered on 12/18/16 08:46; Admin Dose 81 MG; Start 12/03/16 at 09:00 Gabapentin (Neurontin) 800 mg TID PO Last administered on 12/08/16 20:33; Admin Dose 800 MG; Start 12/03/16 at 09:00; Status Future Hold Meclizine HCl (Antivert) 25 mg TID PRN PO dizziness Last administered on 10:04; Admin Dose 25 MG; Start 12/02/16 at 23:00 Terazosin HCl (Hytrin) 5 mg HS PO Last administered on 12/07/16 20:28; Admin Dose 5 MG; Start 12/03/16 at 21:00; Status Future Hold Acetaminophen/ Hydrocodone Bitart ([place] (5/325)) 1 tab Q6H PRN PO PAIN LEVEL 4 -7 Last administered on 12/10/16 21:31; Admin Dose 1 TAB; Start 12/02/16 at 23: 30 Acetaminophen (Tylenol Tab) 650 mg Q6H PRN PO PAIN AND OR ELEVATED TEMP Last administered on 12/18/16 10:44; Admin Dose 650 MG; Start 12/02/16 at 23:30 Docusate Sodium (Colace) 100 mg BID PO Last administered on 12/08/16 20:32; Admin Dose 100 MG; Start 12/03/16 at 09:00; Status Future Hold Zolpidem Tartrate (Ambien) 5 mg HS PRN PO INSOMNIA Last administered on 00:45; Admin Dose 5 MG; Start 12/02/16 at 23:30 Benazepril HCl (Lotensin) 10 mg DAILY PO Last administered on 12/07/16 08:26; Admin Dose 10 MG; Start 12/04/16 at 09:00; Status Future Hold Collagenase (Santyl) 1 applic DAILY TOP Last administered on 12/18/16 08:48; Admin Dose 1 APPLIC; Start 12/07/16 at 16:00 Lorazepam (Ativan) 2 mg Q2 PRN IV AGITATION/ANXIETY Last administered on 03:32; Admin Dose 1 MG; Start 12/09/16 at 09:30 Morphine Sulfate (morphine) 2 mg Q2H PRN IV PAIN Last administered on 12/13/16 02:00; Admin Dose 2 MG; Start 12/09/16 at 09:30 Acetaminophen 650 mg 650 mg Q6H PRN [place] ELEVATED TEMPERATURE Last administered on 12/09/16 17:53; Admin Dose 650 MG; Start 12/09/16 at 17:00 Piperacillin Sod/ Tazobactam Sod (Zosyn 2.25gm/ 50ml (Pmx)) 50 ml @ 100 mls/hr Q12 IVPB Last administered on 12/18/16 08:46; Admin Dose 100 MLS/HR; Start at 21:00 Metoprolol Tartrate 5 mg 5 mg Q4H PRN IV HR>100 Last administered on 12/10/16 22:23; Admin Dose 5 MG; Start 12/09/16 at 17:48 Phenylephrine HCl/ Dextrose (Fernandez-Syneph/D5W) 500 ml @ 75 mls/hr TITRATE IV Last administered on 12/13/16 15:21; Admin Dose 37.5 MLS/HR; Start 12/09/16 at 22:00 Amiodarone HCl (Cordarone) 200 mg BID PO Last administered on 12/18/16 08:45; Admin Dose 200 MG; Start 12/10/16 at 13:00 Hydralazine HCl (Apresoline) 10 mg Q6H PRN IV SBP>150mm hg Last administered on 12/18/16 10:45; Admin Dose 10 MG; Start 12/11/16 at 10:30 Morphine Sulfate 2 mg 2 mg Q2H PRN IV PAIN LEVEL 4-7; Start 12/13/16 at 10:00 Propofol (Diprivan) 100 ml @ 2.544 mls/ hr Q12H IV Last administered on 03:45; Admin Dose 10.176 MLS/HR; Start 12/13/16 at 10:00 Insulin Aspart NOVOLOG *MODERATE* ALGORI... Q4 SC Last administered on 08:47; Admin Dose 4 UNIT; Start 12/14/16 at 09:00 Caspofungin/ Sodium Chloride (Cancidas/NS) 250 ml @ 250 mls/hr Q24H IVPB Last administered on 12/18/16 10:44; Admin Dose 250 MLS/HR; Start 12/15/16 at 11:00 Metoprolol Tartrate (Lopressor) 12.5 mg BID PO Last administered on 12/18/16 08 :46; Admin Dose 12.5 MG; Start 12/16/16 at 21:00 Insulin Glargine (Lantus) 17 unit DAILY@20 SC Last administered on 12/16/16 20: 59; Admin Dose 17 UNIT; Start 12/16/16 at 20:00 Pantoprazole 40 mg 40 mg DAILY@06 IV Last administered on 12/18/16 05:29; Admin Dose 40 MG; Start 12/17/16 at 06:00 Linezolid (Zyvox 600mg/D5W (Pmx)) 300 ml @ 300 mls/hr Q12 IVPB Last administered on 12/18/16 08:46; Admin Dose 300 MLS/HR; Start 12/17/16 at 21:00 Heparin Sodium (Porcine) (Heparin (1000 Units/ml)) 4,000 unit PRN PRN IV PENDING LAB VALUE Last administered on 12/18/16 04:11; Admin Dose 4,000 UNIT; Start 12/18/16 at 04:00 DAVE NICOLE MD December 18, 2016 10:59
--- NOTE | 2016-12-18 13:46 | CONS ---
Date/Time of Note Date/Time of Note DATE: 12/18/16 TIME: 13:41 Assessment/Plan Assessment/Plan Additional Assessment/Plan 1. Oliguric to Anuric Acute kidney injury 2/2 ATN- started on HD on 12/09/16 for acute fluid overload and Pulmonary edema 2. acute resp failure intubated on ventilator -now extubated on 12/10/2016- then again reintubated on 12/13/2016 3. Moderate to large right pleural effusion s/p Right thoracentesis 900 cc drained on 12/16/16 2. Left foot diabetic ulcer/cellulitis currently on IV antibiotics, Zosyn and vancomycin. 3. History of diabetes mellitus, insulin-dependent with lower extremity neuropathy. 4. History of hypertension. 5. History of aortic stenosis with diastolic dysfunction with ejection fraction 60% on echocardiogram. PLAN: s/p right thoracentesis 900 cc drained on 12/16/16, Us showed small left pleural effusion BP stable S/p HD today , no HD tomorrow, , will reassess him for HD on Tuesday keep pt in ICU will continue to follow up Consultation Date/Type/Reason Admit Date/Time Dec 02, 2016 at 21:01 Initial Consult Date Type of Consultation: NEPHROLOGY Referring Provider: VIET PARKER MD 24 HR Interval Summary Free Text/Dictation S/p HD today AM, pt pulled out his ET tube Exam/Review of Systems Vital Signs Vitals Vital Signs Date Time Temp Pulse Resp B/P Pulse Ox O2 Delivery O2 Flow Rate FiO2 12/18/16 13:00 78 15 116/82 97 Mechanical Ventilator 12/18/16 12:00 3.0 12/18/16 12:00 98.9 12/18/16 11:00 30 Intake and Output 12/17/16 12/17/16 12/18/16 15:00 23:00 07:00 Intake Total 709.32 ml 829.54 ml 564.908 ml Output Total 105 ml 60 ml Balance 709.32 ml 724.54 ml 504.908 ml Exam Constitutional: frail, non-verbal, intubated sedated Head: atraumatic, normocephalic ENMT: intubated Respiratory: diminished breath sounds Cardiovascular: nl pulses, regular rate and rhythm Gastrointestinal: non-tender, soft Musculoskeletal: nl extremities to inspection Extremities: No edema Neurological: other (sedated) Skin: rash or lesions (eschar and pale tissue on plantar L 1st toe) Results Result Diagram: 12/18/16 0320 12/18/16 0320 Results 24 hrs Laboratory Tests Test 12/17/16 14:14 12/17/16 17:04 12/17/16 17:20 12/17/16 20:59 Bedside Glucose 177 132 155 Activated Partial Thromboplast Time 54.3 H Test 12/17/16 23:55 12/18/16 01:06 12/18/16 03:20 12/18/16 04:49 Activated Partial Thromboplast Time > 180.0 *H 33.1 Bedside Glucose 193 198 White Blood Count 8.6 Red Blood Count 2.76 L Hemoglobin 8.6 L Hematocrit 26.7 L Mean Corpuscular Volume 96.7 Mean Corpuscular Hemoglobin 31.2 Mean Corpuscular Hemoglobin Concent 32.2 Red Cell Distribution Width 13.7 Platelet Count 179 Mean Platelet Volume 10.0 Neutrophils % 78.9 H Lymphocytes % 6.9 L Monocytes % 10.5 Eosinophils % 1.2 Basophils % 0.2 Nucleated Red Blood Cells % 0.0 Neutrophils # 6.8 Lymphocytes # 0.6 L Monocytes # 0.9 Eosinophils # 0.1 Basophils # 0.0 Nucleated Red Blood Cells # 0.0 Sodium Level 139 Potassium Level 4.0 Chloride Level 103 Carbon Dioxide Level 23 Anion Gap 17 H Blood Urea Nitrogen 39 #H Creatinine 7.24 H Glucose Level 179 Calcium Level 7.7 L Phosphorus Level 7.3 H Magnesium Level 2.3 Test 12/18/16 07:37 12/18/16 08:44 12/18/16 10:52 12/18/16 13:07 Blood Gas Specimen Source Blood arterial Arterial Blood Date Drawn 12/18/2016 9:30:32 AM Arterial Blood pH (Temp corrected) 7.417 Arterial Blood pCO2 (Temp correct) 32.7 L Arterial Blood pO2 (Temp corrected) 86.2 Arterial Blood HCO3 20.6 L Arterial Blood Base Excess -3.2 L Arterial Blood Oxygen Saturation 96.0 Derek Test ACCEPTAB Arterial Blood Gas Puncture Site Right Radial Arterial Blood Carboxyhemoglobin 0.3 Arterial Blood Methemoglobin 0.2 Blood Gas A-a O2 Differential 89.3 H Oxyhemoglobin Percent 95.5 Total Hemoglobin 11.0 L Blood Gas Temperature 37.0 Blood Gas Respiration Rate 18.0 Blood Gas Actual Respiration Rate 20 Blood Gas Modality VENT - AC FiO2 30.0 Blood Gas Tidal Volume 550.0 Blood Gas Low PEEP Setting 5.0 Blood Gas Notified Whom TM Blood Gas Notified Time 12/18/2016 9:37:18 AM Bedside Glucose 188 200 Activated Partial Thromboplast Time 70.6 *H Medications Medications Current Medications Diagnostic Test (Pha) (Accu-Chek) 1 ea 02 XX Last administered on 12/18/16 02: 00; Admin Dose 1 EA; Start 12/03/16 at 02:00 Ondansetron HCl (Zofran Inj) 4 mg Q6H PRN IV NAUSEA AND/OR VOMITING Last administered on 12/13/16 01:13; Admin Dose 4 MG; Start 12/02/16 at 22:30 Miscellaneous Information 1 ea NOTE XX ; Start 12/02/16 at 23:00 Glucose (Glutose) 15 gm Q15M PRN PO DECREASED GLUCOSE; Start 12/02/16 at 23:00 Glucose (Glutose) 22.5 gm Q15M PRN PO DECREASED GLUCOSE; Start 12/02/16 at 23: 00 Dextrose (D50w Syringe) 25 ml Q15M PRN IV DECREASED GLUCOSE Last administered on 12/10/16 05:52; Admin Dose 25 ML; Start 12/02/16 at 23:00 Dextrose (D50w Syringe) 50 ml Q15M PRN IV DECREASED GLUCOSE; Start 12/02/16 at 23:00 Glucagon (Glucagen) 1 mg Q15M PRN IM DECREASED GLUCOSE; Start 12/02/16 at 23:00 Glucose (Glutose) 15 gm Q15M PRN BUCCAL DECREASED GLUCOSE; Start 12/02/16 at 23 :00 Aspirin (Halfprin) 81 mg DAILY PO Last administered on 12/18/16 08:46; Admin Dose 81 MG; Start 12/03/16 at 09:00 Gabapentin (Neurontin) 800 mg TID PO Last administered on 12/08/16 20:33; Admin Dose 800 MG; Start 12/03/16 at 09:00; Status Future Hold Meclizine HCl (Antivert) 25 mg TID PRN PO dizziness Last administered on 10:04; Admin Dose 25 MG; Start 12/02/16 at 23:00 Terazosin HCl (Hytrin) 5 mg HS PO Last administered on 12/07/16 20:28; Admin Dose 5 MG; Start 12/03/16 at 21:00; Status Future Hold Acetaminophen/ Hydrocodone Bitart ([place] (5/325)) 1 tab Q6H PRN PO PAIN LEVEL 4 -7 Last administered on 12/10/16 21:31; Admin Dose 1 TAB; Start 12/02/16 at 23: 30 Acetaminophen (Tylenol Tab) 650 mg Q6H PRN PO PAIN AND OR ELEVATED TEMP Last administered on 12/18/16 10:44; Admin Dose 650 MG; Start 12/02/16 at 23:30 Docusate Sodium (Colace) 100 mg BID PO Last administered on 12/08/16 20:32; Admin Dose 100 MG; Start 12/03/16 at 09:00; Status Future Hold Zolpidem Tartrate (Ambien) 5 mg HS PRN PO INSOMNIA Last administered on 00:45; Admin Dose 5 MG; Start 12/02/16 at 23:30 Benazepril HCl (Lotensin) 10 mg DAILY PO Last administered on 12/07/16 08:26; Admin Dose 10 MG; Start 12/04/16 at 09:00; Status Future Hold Collagenase (Santyl) 1 applic DAILY TOP Last administered on 12/18/16 08:48; Admin Dose 1 APPLIC; Start 12/07/16 at 16:00 Lorazepam (Ativan) 2 mg Q2 PRN IV AGITATION/ANXIETY Last administered on 03:32; Admin Dose 1 MG; Start 12/09/16 at 09:30 Morphine Sulfate (morphine) 2 mg Q2H PRN IV PAIN Last administered on 12/13/16 02:00; Admin Dose 2 MG; Start 12/09/16 at 09:30 Acetaminophen 650 mg 650 mg Q6H PRN [place] ELEVATED TEMPERATURE Last administered on 12/09/16 17:53; Admin Dose 650 MG; Start 12/09/16 at 17:00 Piperacillin Sod/ Tazobactam Sod (Zosyn 2.25gm/ 50ml (Pmx)) 50 ml @ 100 mls/hr Q12 IVPB Last administered on 12/18/16 08:46; Admin Dose 100 MLS/HR; Start at 21:00 Metoprolol Tartrate 5 mg 5 mg Q4H PRN IV HR>100 Last administered on 12/10/16 22:23; Admin Dose 5 MG; Start 12/09/16 at 17:48 Phenylephrine HCl/ Dextrose (Fernandez-Syneph/D5W) 500 ml @ 75 mls/hr TITRATE IV Last administered on 12/13/16 15:21; Admin Dose 37.5 MLS/HR; Start 12/09/16 at 22:00 Amiodarone HCl (Cordarone) 200 mg BID PO Last administered on 12/18/16 08:45; Admin Dose 200 MG; Start 12/10/16 at 13:00 Hydralazine HCl (Apresoline) 10 mg Q6H PRN IV SBP>150mm hg Last administered on 12/18/16 10:45; Admin Dose 10 MG; Start 12/11/16 at 10:30 Morphine Sulfate (morphine) 2 mg Q2H PRN IV PAIN LEVEL 4-7; Start 12/13/16 at 10 :00 Insulin Aspart NOVOLOG *MODERATE* ALGORI... Q4 SC Last administered on 13:10; Admin Dose 4 UNIT; Start 12/14/16 at 09:00 Caspofungin/ Sodium Chloride (Cancidas/NS) 250 ml @ 250 mls/hr Q24H IVPB Last administered on 12/18/16 10:44; Admin Dose 250 MLS/HR; Start 12/15/16 at 11:00 Metoprolol Tartrate (Lopressor) 12.5 mg BID PO Last administered on 12/18/16 08 :46; Admin Dose 12.5 MG; Start 12/16/16 at 21:00 Insulin Glargine (Lantus) 17 unit DAILY@20 SC Last administered on 12/16/16 20: 59; Admin Dose 17 UNIT; Start 12/16/16 at 20:00 Pantoprazole 40 mg 40 mg DAILY@06 IV Last administered on 12/18/16 05:29; Admin Dose 40 MG; Start 12/17/16 at 06:00 Linezolid (Zyvox 600mg/D5W (Pmx)) 300 ml @ 300 mls/hr Q12 IVPB Last administered on 12/18/16 08:46; Admin Dose 300 MLS/HR; Start 12/17/16 at 21:00 Heparin Sodium (Porcine) (Heparin (1000 Units/ml)) 4,000 unit PRN PRN IV PENDING LAB VALUE Last administered on 12/18/16 04:11; Admin Dose 4,000 UNIT; Start 12/18/16 at 04:00 TASHIA MCGARRY MD December 18, 2016 13:46
[2016-12-18 14:41] LABS: AADO2 Arterial 100.5 mmHg (7.0-24.0); Allen Test ACCEPTAB; Arterial Base Excess -3.5 mmol/L (-3.0-3); Arterial COHb 0.1 % (0.0-3.0); Arterial Fraction of Oxyhgb 93.3 % (93.0-99.0); Arterial HCO3 20.8 mmol/L (22.0-26.0); Arterial MetHb 0.4 % (0.0-1.5); Arterial Total Hemglobin 12.1 g/dl (12.0-18.0); MODE NASAL CANNULA
--- NOTE | 2016-12-18 15:41 | CONS ---
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 superficial swab grew inna only - ARANZA, on HD from 12/09/2016 - A fib - troponin+ - DM - HTN recommendations: - f/u wound culture - f/u cultures from thoracentesis today - f/u sensitivity of C. glabrata for flucon, caspo and voriconazole on 12/16/2916 - continue caspofungin (12/14/2016-) - continue renally dosed pip/tazo (12/03/2016) empirically for diabetic foot infection, and sepsis - cont. linezolid (12/13/2016-) because the lesion of L 1st toe is purulent, and I want to enhance coverage of skin roni - if blood cultures on 12/13/2016 grows yeast, we recommend d/c HD catheter - ultimately, Pt Pt needs 6 weeks of antibiotics to treat 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 and left fourth proximal phalanx: 2016 through 01/15/2017 Problems: Consultation Date/Type/Reason Admit Date/Time Dec 02, 2016 at 21:01 Type of Consultation: id Referring Provider: VIET PARKER MD Exam/Review of Systems Vital Signs Vitals Vital Signs Date Time Temp Pulse Resp B/P Pulse Ox O2 Delivery O2 Flow Rate FiO2 12/18/16 15:00 74 14 136/60 100 Mechanical Ventilator 12/18/16 12:00 3.0 12/18/16 12:00 98.9 12/18/16 11:00 30 Intake and Output 12/17/16 12/17/16 12/18/16 15:00 23:00 07:00 Intake Total 709.32 ml 829.54 ml 564.908 ml Output Total 105 ml 60 ml Balance 709.32 ml 724.54 ml 504.908 ml Exam extubated. still critical. d/w and nursing. Constitutional: alert, oriented, well developed Head: atraumatic, normocephalic Eyes: EOMI, PERRL, nl conjunctiva, nl lids, nl sclera Respiratory: congested cough, diminished breath sounds Cardiovascular: regular rate and rhythm Gastrointestinal: soft Musculoskeletal: nl extremities to inspection, nl gait and stance Results Result Diagram: 12/18/16 0320 12/18/16 0320 Results 24 hrs Laboratory Tests Test 12/17/16 17:04 12/17/16 17:20 12/17/16 20:59 12/17/16 23:55 Bedside Glucose 132 155 Activated Partial Thromboplast Time 54.3 H > 180.0 *H Test 12/18/16 01:06 12/18/16 03:20 12/18/16 04:49 12/18/16 07:37 Bedside Glucose 193 198 White Blood Count 8.6 Red Blood Count 2.76 L Hemoglobin 8.6 L Hematocrit 26.7 L Mean Corpuscular Volume 96.7 Mean Corpuscular Hemoglobin 31.2 Mean Corpuscular Hemoglobin Concent 32.2 Red Cell Distribution Width 13.7 Platelet Count 179 Mean Platelet Volume 10.0 Neutrophils % 78.9 H Lymphocytes % 6.9 L Monocytes % 10.5 Eosinophils % 1.2 Basophils % 0.2 Nucleated Red Blood Cells % 0.0 Neutrophils # 6.8 Lymphocytes # 0.6 L Monocytes # 0.9 Eosinophils # 0.1 Basophils # 0.0 Nucleated Red Blood Cells # 0.0 Activated Partial Thromboplast Time 33.1 Sodium Level 139 Potassium Level 4.0 Chloride Level 103 Carbon Dioxide Level 23 Anion Gap 17 H Blood Urea Nitrogen 39 #H Creatinine 7.24 H Glucose Level 179 Calcium Level 7.7 L Phosphorus Level 7.3 H Magnesium Level 2.3 Blood Gas Specimen Source Blood arterial Arterial Blood Date Drawn 12/18/2016 9:30:32 AM Arterial Blood pH (Temp corrected) 7.417 Arterial Blood pCO2 (Temp correct) 32.7 L Arterial Blood pO2 (Temp corrected) 86.2 Arterial Blood HCO3 20.6 L Arterial Blood Base Excess -3.2 L Arterial Blood Oxygen Saturation 96.0 Derek Test ACCEPTAB Arterial Blood Gas Puncture Site Right Radial Arterial Blood Carboxyhemoglobin 0.3 Arterial Blood Methemoglobin 0.2 Blood Gas A-a O2 Differential 89.3 H Oxyhemoglobin Percent 95.5 Total Hemoglobin 11.0 L Blood Gas Temperature 37.0 Blood Gas Respiration Rate 18.0 Blood Gas Actual Respiration Rate 20 Blood Gas Modality VENT - AC FiO2 30.0 Blood Gas Tidal Volume 550.0 Blood Gas Low PEEP Setting 5.0 Blood Gas Notified Whom TM Blood Gas Notified Time 12/18/2016 9:37:18 AM Test 12/18/16 08:44 12/18/16 10:52 12/18/16 11:20 12/18/16 13:07 Bedside Glucose 188 200 Activated Partial Thromboplast Time 70.6 *H Blood Gas Specimen Source Blood arterial Arterial Blood Date Drawn 12/18/2016 11:50:09 AM Arterial Blood pH (Temp corrected) 7.391 Arterial Blood pCO2 (Temp correct) 35.0 Arterial Blood pO2 (Temp corrected) 72.3 L Arterial Blood HCO3 20.8 L Arterial Blood Base Excess -3.5 L Arterial Blood Oxygen Saturation 93.8 L Derek Test ACCEPTAB Arterial Blood Gas Puncture Site Right Radial Arterial Blood Carboxyhemoglobin 0.1 Arterial Blood Methemoglobin 0.4 Blood Gas A-a O2 Differential 100.5 H Oxyhemoglobin Percent 93.3 Total Hemoglobin 12.1 Blood Gas Temperature 37.0 Blood Gas Modality NASAL CANNULA FiO2 30.0 Blood Gas Notified Whom DT Blood Gas Notified Time 12/18/2016 12:01:21 PM Medications Medications Current Medications Diagnostic Test (Pha) (Accu-Chek) 1 ea 02 XX Last administered on 12/18/16 02: 00; Admin Dose 1 EA; Start 12/03/16 at 02:00 Ondansetron HCl (Zofran Inj) 4 mg Q6H PRN IV NAUSEA AND/OR VOMITING Last administered on 12/13/16 01:13; Admin Dose 4 MG; Start 12/02/16 at 22:30 Miscellaneous Information 1 ea NOTE XX ; Start 12/02/16 at 23:00 Glucose (Glutose) 15 gm Q15M PRN PO DECREASED GLUCOSE; Start 12/02/16 at 23:00 Glucose (Glutose) 22.5 gm Q15M PRN PO DECREASED GLUCOSE; Start 12/02/16 at 23: 00 Dextrose (D50w Syringe) 25 ml Q15M PRN IV DECREASED GLUCOSE Last administered on 12/10/16 05:52; Admin Dose 25 ML; Start 12/02/16 at 23:00 Dextrose (D50w Syringe) 50 ml Q15M PRN IV DECREASED GLUCOSE; Start 12/02/16 at 23:00 Glucagon (Glucagen) 1 mg Q15M PRN IM DECREASED GLUCOSE; Start 12/02/16 at 23:00 Glucose (Glutose) 15 gm Q15M PRN BUCCAL DECREASED GLUCOSE; Start 12/02/16 at 23 :00 Aspirin (Halfprin) 81 mg DAILY PO Last administered on 12/18/16 08:46; Admin Dose 81 MG; Start 12/03/16 at 09:00 Gabapentin (Neurontin) 800 mg TID PO Last administered on 12/08/16 20:33; Admin Dose 800 MG; Start 12/03/16 at 09:00; Status Future Hold Meclizine HCl (Antivert) 25 mg TID PRN PO dizziness Last administered on 10:04; Admin Dose 25 MG; Start 12/02/16 at 23:00 Terazosin HCl (Hytrin) 5 mg HS PO Last administered on 12/07/16 20:28; Admin Dose 5 MG; Start 12/03/16 at 21:00; Status Future Hold Acetaminophen/ Hydrocodone Bitart ([place] (5/325)) 1 tab Q6H PRN PO PAIN LEVEL 4 -7 Last administered on 12/10/16 21:31; Admin Dose 1 TAB; Start 12/02/16 at 23: 30 Acetaminophen (Tylenol Tab) 650 mg Q6H PRN PO PAIN AND OR ELEVATED TEMP Last administered on 12/18/16 10:44; Admin Dose 650 MG; Start 12/02/16 at 23:30 Docusate Sodium (Colace) 100 mg BID PO Last administered on 12/08/16 20:32; Admin Dose 100 MG; Start 12/03/16 at 09:00; Status Future Hold Zolpidem Tartrate (Ambien) 5 mg HS PRN PO INSOMNIA Last administered on 00:45; Admin Dose 5 MG; Start 12/02/16 at 23:30 Benazepril HCl (Lotensin) 10 mg DAILY PO Last administered on 12/07/16 08:26; Admin Dose 10 MG; Start 12/04/16 at 09:00; Status Future Hold Collagenase (Santyl) 1 applic DAILY TOP Last administered on 12/18/16 08:48; Admin Dose 1 APPLIC; Start 12/07/16 at 16:00 Lorazepam (Ativan) 2 mg Q2 PRN IV AGITATION/ANXIETY Last administered on 03:32; Admin Dose 1 MG; Start 12/09/16 at 09:30 Morphine Sulfate (morphine) 2 mg Q2H PRN IV PAIN Last administered on 12/13/16 02:00; Admin Dose 2 MG; Start 12/09/16 at 09:30 Acetaminophen 650 mg 650 mg Q6H PRN [place] ELEVATED TEMPERATURE Last administered on 12/09/16 17:53; Admin Dose 650 MG; Start 12/09/16 at 17:00 Piperacillin Sod/ Tazobactam Sod (Zosyn 2.25gm/ 50ml (Pmx)) 50 ml @ 100 mls/hr Q12 IVPB Last administered on 12/18/16 08:46; Admin Dose 100 MLS/HR; Start at 21:00 Metoprolol Tartrate 5 mg 5 mg Q4H PRN IV HR>100 Last administered on 12/10/16 22:23; Admin Dose 5 MG; Start 12/09/16 at 17:48 Phenylephrine HCl/ Dextrose (Fernandez-Syneph/D5W) 500 ml @ 75 mls/hr TITRATE IV Last administered on 12/13/16 15:21; Admin Dose 37.5 MLS/HR; Start 12/09/16 at 22:00 Amiodarone HCl (Cordarone) 200 mg BID PO Last administered on 12/18/16 08:45; Admin Dose 200 MG; Start 12/10/16 at 13:00 Hydralazine HCl (Apresoline) 10 mg Q6H PRN IV SBP>150mm hg Last administered on 12/18/16 10:45; Admin Dose 10 MG; Start 12/11/16 at 10:30 Morphine Sulfate (morphine) 2 mg Q2H PRN IV PAIN LEVEL 4-7; Start 12/13/16 at 10 :00 Insulin Aspart NOVOLOG *MODERATE* ALGORI... Q4 SC Last administered on 13:10; Admin Dose 4 UNIT; Start 12/14/16 at 09:00 Caspofungin/ Sodium Chloride (Cancidas/NS) 250 ml @ 250 mls/hr Q24H IVPB Last administered on 12/18/16 10:44; Admin Dose 250 MLS/HR; Start 12/15/16 at 11:00 Metoprolol Tartrate (Lopressor) 12.5 mg BID PO Last administered on 12/18/16 08 :46; Admin Dose 12.5 MG; Start 12/16/16 at 21:00 Insulin Glargine (Lantus) 17 unit DAILY@20 SC Last administered on 12/16/16 20: 59; Admin Dose 17 UNIT; Start 12/16/16 at 20:00 Pantoprazole 40 mg 40 mg DAILY@06 IV Last administered on 12/18/16 05:29; Admin Dose 40 MG; Start 12/17/16 at 06:00 Linezolid (Zyvox 600mg/D5W (Pmx)) 300 ml @ 300 mls/hr Q12 IVPB Last administered on 12/18/16 08:46; Admin Dose 300 MLS/HR; Start 12/17/16 at 21:00 Heparin Sodium (Porcine) (Heparin (1000 Units/ml)) 4,000 unit PRN PRN IV PENDING LAB VALUE Last administered on 12/18/16 04:11; Admin Dose 4,000 UNIT; Start 12/18/16 at 04:00 NIKHIL RAM MD December 18, 2016 15:41
[2016-12-18] MEDS: INSULIN GLARGINE [LANtus] 3 ML PEN SC SCH (19:50)
[2016-12-18] MEDS: morphine 2 MG INJ IV PRN (22:53)
[2016-12-19] VITALS (29 sets, daily range): BP systolic 98–156; BP diastolic 49–81; PULSE 58–102; RESP 14–25
[2016-12-19 00:46] LABS: AADO2 Arterial 424.3 mmHg (7.0-24.0); Allen Test ACCEPTAB; Arterial Base Excess -6.2 mmol/L (-3.0-3); Arterial COHb 0.6 % (0.0-3.0); Arterial HCO3 23.3 mmol/L (22.0-26.0); Arterial MetHb 0.4 % (0.0-1.5); Arterial Total Hemglobin 12.7 g/dl (12.0-18.0); MODE MASK - NRB
[2016-12-19] MEDS: INSULIN ASPART [NOVOLOG] 3 ML PEN SC SCH ×6 (01:11→20:46)
[2016-12-19] MEDS: ACCU-CHEK XX SCH (02:00)
[2016-12-19 05:03] LABS: ADD SCAN DIFF NO
[2016-12-19 05:09] LABS: ABNORMAL IP MESSAGE 1; HEMATOCRIT 31.5 % (42.0-52.0); HEMOGLOBIN 10.2 g/dl (14.0-18.0); MEAN CORPUSCULAR HEMOGLOBIN 31.5 pg (29.0-33.0); MEAN CORPUSCULAR HGB CONC 32.4 g/dl (32.0-37.0); MEAN CORPUSCULAR VOLUME 97.2 fl (82.0-101.0); MEAN PLATELET VOLUME 9.6 fl (7.4-10.4); PLATELET COUNT 210 10^3/UL (140-415); RED BLOOD COUNT 3.24 10^6/ul (4.70-6.10); RED CELL DISTRIBUTION WIDTH 13.3 % (11.5-14.5); WHITE BLOOD COUNT 11.7 10^3/ul (4.8-10.8)
[2016-12-19 05:19] LABS: ALBUMIN 3.3 g/dl (3.3-4.9); ALBUMIN/GLOBULIN RATIO 0.84; BILIRUBIN,INDIRECT 0.2 mg/dl (0-1.1); BILIRUBIN,TOTAL 0.2 mg/dl (0.2-1.3); CALCIUM 8.2 mg/dl (8.4-10.2); CREATININE 6.88 mg/dl (0.61-1.24); POTASSIUM 4.8 mmol/L (3.5-5.1); TOTAL PROTEIN 7.2 g/dl (6.1-8.1)
[2016-12-19 05:48] LABS: POTASSIUM 4.6 mmol/L (3.5-5.1)
[2016-12-19 05:51] LABS: CREATININE 6.96 mg/dl (0.61-1.24); PHOSPHORUS 9.3 mg/dl (2.5-4.9)
[2016-12-19 05:52] LABS: CALCIUM 8.3 mg/dl (8.4-10.2); MAGNESIUM 2.6 mg/dl (1.7-2.5)
[2016-12-19 06:43] LABS: AADO2 Arterial 235.2 mmHg (7.0-24.0); Arterial Base Excess -2.8 mmol/L (-3.0-3); Arterial COHb 0.3 % (0.0-3.0); Arterial Fraction of Oxyhgb 98.9 % (93.0-99.0); Arterial HCO3 23.1 mmol/L (22.0-26.0); Arterial MetHb 0.3 % (0.0-1.5); Blood Gas IEPAP 20/8; MODE MASK - BIPAP
[2016-12-19] MEDS: PANTOPRAZOLE 40 MG INJ IV SCH (06:43)
[2016-12-19] MEDS: PIPER-TAZO 2.25 GM (PMX) 50 ML IVPB SCH ×2 (08:47→20:37)
[2016-12-19] MEDS: hydrALAzine 20 MG INJ IV PRN (08:50)
[2016-12-19] MEDS: METOPROLOL 25 MG TAB PO SCH ×2 (09:00→20:51)
[2016-12-19] MEDS: COLLAGENASE 30 GM TUBE TOP SCH (09:00)
[2016-12-19] MEDS: AMIODARONE 200 MG TAB PO SCH ×2 (09:00→20:51)
[2016-12-19] MEDS: ASPIRIN (EC) 81 MG TAB PO SCH (09:00)
--- NOTE | 2016-12-19 09:40 | PN ---
Date/Time of Note Date/Time of Note DATE: 12/19/16 TIME: 09:38 Assessment/Plan Lines/Catheters IV Catheter Type (from Nrsg): PICC Line Molina in Place (from Nrsg): Yes Assessment/Plan Chief Complaint/Hosp Course Renal Failure Left foot ulcer Dialysis on hold COPD Will need Angio when more stable will continue Abx Problems: Subjective 24 Hr Interval Summary Extubated Constitutional: improved Pain Control: mild Exam/Review of Systems Vital Signs Vitals Vital Signs Date Time Temp Pulse Resp B/P Pulse Ox O2 Delivery O2 Flow Rate FiO2 12/19/16 08:00 97.9 80 18 151/74 100 BIPAP 12/19/16 05:05 100 12/19/16 00:15 15.0 Intake and Output 12/18/16 12/18/16 12/19/16 15:00 23:00 07:00 Intake Total 1391.176 ml 570 ml 0 ml Output Total 4425 ml 10 ml 30 ml Balance -3033.824 ml 560 ml -30 ml Exam Neck: non-tender, supple Respiratory: clear to auscultation, normal air movement Cardiovascular: nl pulses, regular rate and rhythm Gastrointestinal: nl liver, spleen, non-tender, soft Results Result Diagram: 12/19/16 0445 12/19/16 0445 CAITIE CRUZ MD December 19, 2016 09:40
[2016-12-19] MEDS: LINEZOLID 600 MG/D5W (PMX) 300 ML IVPB SCH ×2 (10:00→20:40)
--- NOTE | 2016-12-19 11:13 | CONS ---
Date/Time of Note Date/Time of Note DATE: 12/19/16 TIME: 11:11 Assessment/Plan Assessment/Plan Additional Assessment/Plan 1. Oliguric to Anuric Acute kidney injury 2/2 ATN- started on HD on 12/09/16 for acute fluid overload and Pulmonary edema 2. acute resp failure intubated on ventilator -now extubated on 12/10/2016- then again reintubated on 12/13/2016 3. Moderate to large right pleural effusion s/p Right thoracentesis 900 cc drained on 12/16/16 2. Left foot diabetic ulcer/cellulitis currently on IV antibiotics, Zosyn and vancomycin. 3. History of diabetes mellitus, insulin-dependent with lower extremity neuropathy. 4. History of hypertension. 5. History of aortic stenosis with diastolic dysfunction with ejection fraction 60% on echocardiogram. PLAN: s/p right thoracentesis 900 cc drained on 12/16/16, Us showed small left pleural effusion making not enough urine, BP stable today S/p HD yesterday, no HD today, , will reassess him for HD on Tuesday keep pt in ICU will continue to follow up Consultation Date/Type/Reason Admit Date/Time Dec 02, 2016 at 21:01 Initial Consult Date Type of Consultation: NEPHROLOGY Referring Provider: VIET PARKER MD 24 HR Interval Summary Free Text/Dictation pt extubated yesterday, BP stable,a febrile, making urine 10cc/hr , K normal, BUN/Cr still high Exam/Review of Systems Vital Signs Vitals Vital Signs Date Time Temp Pulse Resp B/P Pulse Ox O2 Delivery O2 Flow Rate FiO2 12/19/16 10:00 87 18 108/51 95 Nasal Cannula 3.0 12/19/16 08:00 97.9 12/19/16 05:05 100 Intake and Output 12/18/16 12/18/16 12/19/16 15:00 23:00 07:00 Intake Total 1391.176 ml 570 ml 0 ml Output Total 4425 ml 10 ml 55 ml Balance -3033.824 ml 560 ml -55 ml Exam Constitutional: frail, non-verbal, intubated sedated Head: atraumatic, normocephalic ENMT: intubated Respiratory: diminished breath sounds Cardiovascular: nl pulses, regular rate and rhythm Gastrointestinal: non-tender, soft Musculoskeletal: nl extremities to inspection Extremities: No edema Neurological: other (sedated) Skin: rash or lesions (eschar and pale tissue on plantar L 1st toe Results Result Diagram: 12/19/16 0445 12/19/16 0445 Results 24 hrs Laboratory Tests Test 12/18/16 11:20 12/18/16 13:07 12/18/16 17:58 12/18/16 19:48 Blood Gas Specimen Source Blood arterial Arterial Blood Date Drawn 12/18/2016 11:50:09 AM Arterial Blood pH (Temp corrected) 7.391 Arterial Blood pCO2 (Temp correct) 35.0 Arterial Blood pO2 (Temp corrected) 72.3 L Arterial Blood HCO3 20.8 L Arterial Blood Base Excess -3.5 L Arterial Blood Oxygen Saturation 93.8 L Derek Test ACCEPTAB Arterial Blood Gas Puncture Site Right Radial Arterial Blood Carboxyhemoglobin 0.1 Arterial Blood Methemoglobin 0.4 Blood Gas A-a O2 Differential 100.5 H Oxyhemoglobin Percent 93.3 Total Hemoglobin 12.1 Blood Gas Temperature 37.0 Blood Gas Modality NASAL CANNULA FiO2 30.0 Blood Gas Notified Whom DT Blood Gas Notified Time 12/18/2016 12:01:21 PM Bedside Glucose 200 196 173 Test 12/18/16 20:28 12/19/16 00:25 12/19/16 01:09 12/19/16 02:27 Bedside Glucose 183 259 H 247 H Blood Gas Specimen Source Blood arterial Arterial Blood Date Drawn 12/19/2016 12:30:36 AM Arterial Blood pH (Temp corrected) 7.166 *L Arterial Blood pCO2 (Temp correct) 66.0 H Arterial Blood pO2 (Temp corrected) 84.1 Arterial Blood HCO3 23.3 Arterial Blood Base Excess -6.2 L Arterial Blood Oxygen Saturation 92.9 L Derek Test ACCEPTAB Arterial Blood Gas Puncture Site Right Radial Arterial Blood Carboxyhemoglobin 0.6 Arterial Blood Methemoglobin 0.4 Blood Gas A-a O2 Differential 424.3 H Oxyhemoglobin Percent 92.0 L Total Hemoglobin 12.7 Blood Gas Temperature 37.0 Blood Gas Modality MASK - NRB FiO2 81.0 Blood Gas Critical Value Read Back DPATEL RN Blood Gas Notified Whom MA Blood Gas Notified Time 12/19/2016 12:46:28 AM Test 12/19/16 04:45 12/19/16 04:49 12/19/16 06:00 12/19/16 10:03 White Blood Count 11.7 #H Red Blood Count 3.24 L Hemoglobin 10.2 L Hematocrit 31.5 L Mean Corpuscular Volume 97.2 Mean Corpuscular Hemoglobin 31.5 Mean Corpuscular Hemoglobin Concent 32.4 Red Cell Distribution Width 13.3 Platelet Count 210 Mean Platelet Volume 9.6 Sodium Level 140 Potassium Level 4.8 Chloride Level 105 Carbon Dioxide Level 25 Anion Gap 15 Blood Urea Nitrogen 42 H Creatinine 6.88 H Glucose Level 212 Calcium Level 8.2 L Phosphorus Level 9.3 #H Magnesium Level 2.6 H Total Bilirubin 0.2 Direct Bilirubin 0.00 Indirect Bilirubin 0.2 Aspartate Amino Transf (AST/SGOT) 15 Alanine Aminotransferase (ALT/SGPT) 31 Alkaline Phosphatase 100 Troponin I 0.189 *H Total Protein 7.2 Albumin 3.3 Globulin 3.90 H Albumin/Globulin Ratio 0.84 Bedside Glucose 183 171 Blood Gas Specimen Source Blood arterial Arterial Blood Date Drawn 12/19/2016 6:30:30 AM Arterial Blood pH (Temp corrected) 7.334 L Arterial Blood pCO2 (Temp correct) 44.4 Arterial Blood pO2 (Temp corrected) 433.4 H Arterial Blood HCO3 23.1 Arterial Blood Base Excess -2.8 Arterial Blood Oxygen Saturation 99.5 H Derek Test N/A Arterial Blood Gas Puncture Site Right Brachial Arterial Blood Carboxyhemoglobin 0.3 Arterial Blood Methemoglobin 0.3 Blood Gas A-a O2 Differential 235.2 H Oxyhemoglobin Percent 98.9 Total Hemoglobin 11.0 L Blood Gas Temperature 37.0 Blood Gas Respiration Rate 20.0 Blood Gas Actual Respiration Rate 25 Blood Gas Modality MASK - BIPAP FiO2 100.0 Blood Gas IPAP/EPAP Ratio 20/8 Blood Gas Notified Whom PR Blood Gas Notified Time 12/19/2016 6:43:18 AM Medications Medications Current Medications Diagnostic Test (Pha) (Accu-Chek) 1 ea 02 XX Last administered on 12/19/16 02: 00; Admin Dose 1 EA; Start 12/03/16 at 02:00 Ondansetron HCl (Zofran Inj) 4 mg Q6H PRN IV NAUSEA AND/OR VOMITING Last administered on 12/13/16 01:13; Admin Dose 4 MG; Start 12/02/16 at 22:30 Miscellaneous Information 1 ea NOTE XX ; Start 12/02/16 at 23:00 Glucose (Glutose) 15 gm Q15M PRN PO DECREASED GLUCOSE; Start 12/02/16 at 23:00 Glucose (Glutose) 22.5 gm Q15M PRN PO DECREASED GLUCOSE; Start 12/02/16 at 23: 00 Dextrose (D50w Syringe) 25 ml Q15M PRN IV DECREASED GLUCOSE Last administered on 12/10/16 05:52; Admin Dose 25 ML; Start 12/02/16 at 23:00 Dextrose (D50w Syringe) 50 ml Q15M PRN IV DECREASED GLUCOSE; Start 12/02/16 at 23:00 Glucagon (Glucagen) 1 mg Q15M PRN IM DECREASED GLUCOSE; Start 12/02/16 at 23:00 Glucose (Glutose) 15 gm Q15M PRN BUCCAL DECREASED GLUCOSE; Start 12/02/16 at 23 :00 Aspirin (Halfprin) 81 mg DAILY PO Last administered on 12/18/16 08:46; Admin Dose 81 MG; Start 12/03/16 at 09:00 Gabapentin (Neurontin) 800 mg TID PO Last administered on 12/08/16 20:33; Admin Dose 800 MG; Start 12/03/16 at 09:00; Status Future Hold Meclizine HCl (Antivert) 25 mg TID PRN PO dizziness Last administered on 10:04; Admin Dose 25 MG; Start 12/02/16 at 23:00 Terazosin HCl (Hytrin) 5 mg HS PO Last administered on 12/07/16 20:28; Admin Dose 5 MG; Start 12/03/16 at 21:00; Status Future Hold Acetaminophen/ Hydrocodone Bitart ([place] (5/325)) 1 tab Q6H PRN PO PAIN LEVEL 4 -7 Last administered on 12/10/16 21:31; Admin Dose 1 TAB; Start 12/02/16 at 23: 30 Acetaminophen (Tylenol Tab) 650 mg Q6H PRN PO PAIN AND OR ELEVATED TEMP Last administered on 12/18/16 10:44; Admin Dose 650 MG; Start 12/02/16 at 23:30 Docusate Sodium (Colace) 100 mg BID PO Last administered on 12/08/16 20:32; Admin Dose 100 MG; Start 12/03/16 at 09:00; Status Future Hold Zolpidem Tartrate (Ambien) 5 mg HS PRN PO INSOMNIA Last administered on 00:45; Admin Dose 5 MG; Start 12/02/16 at 23:30 Benazepril HCl (Lotensin) 10 mg DAILY PO Last administered on 12/07/16 08:26; Admin Dose 10 MG; Start 12/04/16 at 09:00; Status Future Hold Collagenase (Santyl) 1 applic DAILY TOP Last administered on 12/18/16 08:48; Admin Dose 1 APPLIC; Start 12/07/16 at 16:00 Lorazepam (Ativan) 2 mg Q2 PRN IV AGITATION/ANXIETY Last administered on 03:32; Admin Dose 1 MG; Start 12/09/16 at 09:30 Morphine Sulfate (morphine) 2 mg Q2H PRN IV PAIN Last administered on 12/18/16 22:53; Admin Dose 2 MG; Start 12/09/16 at 09:30 Acetaminophen 650 mg 650 mg Q6H PRN [place] ELEVATED TEMPERATURE Last administered on 12/09/16 17:53; Admin Dose 650 MG; Start 12/09/16 at 17:00 Piperacillin Sod/ Tazobactam Sod (Zosyn 2.25gm/ 50ml (Pmx)) 50 ml @ 100 mls/hr Q12 IVPB Last administered on 12/19/16 08:47; Admin Dose 100 MLS/HR; Start at 21:00 Metoprolol Tartrate 5 mg 5 mg Q4H PRN IV HR>100 Last administered on 12/10/16 22:23; Admin Dose 5 MG; Start 12/09/16 at 17:48 Phenylephrine HCl/ Dextrose (Fernandez-Syneph/D5W) 500 ml @ 75 mls/hr TITRATE IV Last administered on 12/13/16 15:21; Admin Dose 37.5 MLS/HR; Start 12/09/16 at 22:00 Amiodarone HCl (Cordarone) 200 mg BID PO Last administered on 12/18/16 20:23; Admin Dose 200 MG; Start 12/10/16 at 13:00 Hydralazine HCl (Apresoline) 10 mg Q6H PRN IV SBP>150mm hg Last administered on 12/19/16 08:50; Admin Dose 10 MG; Start 12/11/16 at 10:30 Morphine Sulfate (morphine) 2 mg Q2H PRN IV PAIN LEVEL 4-7; Start 12/13/16 at 10 :00 Insulin Aspart NOVOLOG *MODERATE* ALGORI... Q4 SC Last administered on 10:05; Admin Dose 2 UNIT; Start 12/14/16 at 09:00 Caspofungin/ Sodium Chloride (Cancidas/NS) 250 ml @ 250 mls/hr Q24H IVPB Last administered on 12/18/16 10:44; Admin Dose 250 MLS/HR; Start 12/15/16 at 11:00 Metoprolol Tartrate (Lopressor) 12.5 mg BID PO Last administered on 12/18/16 20 :24; Admin Dose 12.5 MG; Start 12/16/16 at 21:00 Pantoprazole 40 mg 40 mg DAILY@06 IV Last administered on 12/19/16 06:43; Admin Dose 40 MG; Start 12/17/16 at 06:00 Linezolid (Zyvox 600mg/D5W (Pmx)) 300 ml @ 300 mls/hr Q12 IVPB Last administered on 12/19/16 10:00; Admin Dose 300 MLS/HR; Start 12/17/16 at 21:00 Insulin Glargine (Lantus) 19 unit DAILY@20 SC Last administered on 12/18/16 19: 50; Admin Dose 19 UNIT; Start 12/18/16 at 20:00 TASHIA MCGARRY MD December 19, 2016 11:13
--- NOTE | 2016-12-19 11:29 | PN ---
Date/Time of Note Date/Time of Note DATE: 12/19/16 TIME: 11:10 Assessment/Plan VTE Prophylaxis VTE Prophylaxis Intervention: other Lines/Catheters IV C[facility] Type (from [facility] PICC Line Central line still needed: Yes Urinary Cath still in place: Yes Reason Cath still needed: urinary retention Assessment/Plan Assessment/Plan - Acute respiratory failure secondary to pulmonary edema, patient is currently extubated, on RA- tolerating Dr. Alvarez is following from pulmonology standpoint. - Bilateral pleural effusion, this post right sided thoracentesis with removal of 900 cc of fluid,NO left sided thoracentesis - Acute renal failure, Dr. Remy is following in nephrology consultation. Continue hemodialysis per nephrology. - sp HD- 4 L REMOVED - Acute to subacute right occipital lobe ischemic infarct per CT, Dr Morris is following in neurology consultation. Will obtain MRI of the brain the patient is more stable. - Paroxysmal atrial fibrillation and positive troponin. Dr. Cobian is following and cardiology consultation. - on heparin drip - Fungemia, om Caspofungin. Dr. Pascual is following in infection disease consultation. - Diabetic foot ulcer of the left foot, Dr Lin is following in podiatry consultation. - Cellulitis of left foot, 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 and left fourth proximal phalanx per bone scan, continue antibiotics, Continue antibiotics per ID. - Aortic stenosis - Diastolic dysfunction congestive heart failure with preserved ejection fraction of 60%. - DM, Hgb A1c is 8.7, continue Lantus and NovoLog per sliding scale. Further recommendations based on clinical course. Total critical care time spent is 30 mins.Plan of care discussed with Dr. Heredia. Subjective 24 Hr Interval Summary Free Text/Dictation alert, awake, on RA- 93%, BIPAP at night only, follows simple commands,. Son at bed side - all Qs ANSWERED. DW STAFF. dw Dr Evelina Remy/son regarding patient condition. Constitutional: requiring IVF, requiring O2 ENT: no complaints Respiratory: no complaints Cardiovascular: no complaints Gastrointestinal: no complaints Genitourinary: no complaints Musculoskeletal: no complaints Skin: no complaints Neurologic: no complaints Exam/Review of Systems Vital Signs Vitals Vital Signs Date Time Temp Pulse Resp B/P Pulse Ox O2 Delivery O2 Flow Rate FiO2 12/19/16 10:00 87 18 108/51 95 Nasal Cannula 3.0 12/19/16 08:00 97.9 12/19/16 05:05 100 Intake and Output 12/18/16 12/18/16 12/19/16 15:00 23:00 07:00 Intake Total 1391.176 ml 570 ml 0 ml Output Total 4425 ml 10 ml 55 ml Balance -3033.824 ml 560 ml -55 ml Results Result Diagram: 12/19/16 0445 12/19/16 0445 Results 24 hrs Laboratory Tests Test 12/18/16 11:20 12/18/16 13:07 12/18/16 17:58 12/18/16 19:48 Blood Gas Specimen Source Blood arterial Arterial Blood Date Drawn 12/18/2016 11:50:09 AM Arterial Blood pH (Temp corrected) 7.391 Arterial Blood pCO2 (Temp correct) 35.0 Arterial Blood pO2 (Temp corrected) 72.3 L Arterial Blood HCO3 20.8 L Arterial Blood Base Excess -3.5 L Arterial Blood Oxygen Saturation 93.8 L Derek Test ACCEPTAB Arterial Blood Gas Puncture Site Right Radial Arterial Blood Carboxyhemoglobin 0.1 Arterial Blood Methemoglobin 0.4 Blood Gas A-a O2 Differential 100.5 H Oxyhemoglobin Percent 93.3 Total Hemoglobin 12.1 Blood Gas Temperature 37.0 Blood Gas Modality NASAL CANNULA FiO2 30.0 Blood Gas Notified Whom DT Blood Gas Notified Time 12/18/2016 12:01:21 PM Bedside Glucose 200 196 173 Test 12/18/16 20:28 12/19/16 00:25 12/19/16 01:09 12/19/16 02:27 Bedside Glucose 183 259 H 247 H Blood Gas Specimen Source Blood arterial Arterial Blood Date Drawn 12/19/2016 12:30:36 AM Arterial Blood pH (Temp corrected) 7.166 *L Arterial Blood pCO2 (Temp correct) 66.0 H Arterial Blood pO2 (Temp corrected) 84.1 Arterial Blood HCO3 23.3 Arterial Blood Base Excess -6.2 L Arterial Blood Oxygen Saturation 92.9 L Derek Test ACCEPTAB Arterial Blood Gas Puncture Site Right Radial Arterial Blood Carboxyhemoglobin 0.6 Arterial Blood Methemoglobin 0.4 Blood Gas A-a O2 Differential 424.3 H Oxyhemoglobin Percent 92.0 L Total Hemoglobin 12.7 Blood Gas Temperature 37.0 Blood Gas Modality MASK - NRB FiO2 81.0 Blood Gas Critical Value Read Back DPATEL RN Blood Gas Notified Whom SHRAVAN Blood Gas Notified Time 12/19/2016 12:46:28 AM Test 12/19/16 04:45 12/19/16 04:49 12/19/16 06:00 12/19/16 10:03 White Blood Count 11.7 #H Red Blood Count 3.24 L Hemoglobin 10.2 L Hematocrit 31.5 L Mean Corpuscular Volume 97.2 Mean Corpuscular Hemoglobin 31.5 Mean Corpuscular Hemoglobin Concent 32.4 Red Cell Distribution Width 13.3 Platelet Count 210 Mean Platelet Volume 9.6 Sodium Level 140 Potassium Level 4.8 Chloride Level 105 Carbon Dioxide Level 25 Anion Gap 15 Blood Urea Nitrogen 42 H Creatinine 6.88 H Glucose Level 212 Calcium Level 8.2 L Phosphorus Level 9.3 #H Magnesium Level 2.6 H Total Bilirubin 0.2 Direct Bilirubin 0.00 Indirect Bilirubin 0.2 Aspartate Amino Transf (AST/SGOT) 15 Alanine Aminotransferase (ALT/SGPT) 31 Alkaline Phosphatase 100 Troponin I 0.189 *H Total Protein 7.2 Albumin 3.3 Globulin 3.90 H Albumin/Globulin Ratio 0.84 Bedside Glucose 183 171 Blood Gas Specimen Source Blood arterial Arterial Blood Date Drawn 12/19/2016 6:30:30 AM Arterial Blood pH (Temp corrected) 7.334 L Arterial Blood pCO2 (Temp correct) 44.4 Arterial Blood pO2 (Temp corrected) 433.4 H Arterial Blood HCO3 23.1 Arterial Blood Base Excess -2.8 Arterial Blood Oxygen Saturation 99.5 H Derek Test N/A Arterial Blood Gas Puncture Site Right Brachial Arterial Blood Carboxyhemoglobin 0.3 Arterial Blood Methemoglobin 0.3 Blood Gas A-a O2 Differential 235.2 H Oxyhemoglobin Percent 98.9 Total Hemoglobin 11.0 L Blood Gas Temperature 37.0 Blood Gas Respiration Rate 20.0 Blood Gas Actual Respiration Rate 25 Blood Gas Modality MASK - BIPAP FiO2 100.0 Blood Gas IPAP/EPAP Ratio 20/8 Blood Gas Notified Whom SHRAVAN Blood Gas Notified Time 12/19/2016 6:43:18 AM Medications Medications Current Medications Diagnostic Test (Pha) (Accu-Chek) 1 ea 02 XX Last administered on 12/19/16t 02: 00; Admin Dose 1 EA; Start 12/03/16 at 02:00 Ondansetron HCl (Zofran Inj) 4 mg Q6H PRN IV NAUSEA AND/OR VOMITING Last administered on 12/13/16 01:13; Admin Dose 4 MG; Start 12/02/16 at 22:30 Miscellaneous Information 1 ea NOTE XX ; Start 12/02/16 at 23:00 Glucose (Glutose) 15 gm Q15M PRN PO DECREASED GLUCOSE; Start 12/02/16 at 23:00 Glucose (Glutose) 22.5 gm Q15M PRN PO DECREASED GLUCOSE; Start 12/02/16 at 23: 00 Dextrose (D50w Syringe) 25 ml Q15M PRN IV DECREASED GLUCOSE Last administered on 12/10/16 05:52; Admin Dose 25 ML; Start 12/02/16 at 23:00 Dextrose (D50w Syringe) 50 ml Q15M PRN IV DECREASED GLUCOSE; Start 12/02/16 at 23:00 Glucagon (Glucagen) 1 mg Q15M PRN IM DECREASED GLUCOSE; Start 12/02/16 at 23:00 Glucose (Glutose) 15 gm Q15M PRN BUCCAL DECREASED GLUCOSE; Start 12/02/16 at 23 :00 Aspirin (Halfprin) 81 mg DAILY PO Last administered on 12/18/16 08:46; Admin Dose 81 MG; Start 12/03/16 at 09:00 Gabapentin (Neurontin) 800 mg TID PO Last administered on 12/08/16 20:33; Admin Dose 800 MG; Start 12/03/16 at 09:00; Status Future Hold Meclizine HCl (Antivert) 25 mg TID PRN PO dizziness Last administered on 10:04; Admin Dose 25 MG; Start 12/02/16 at 23:00 Terazosin HCl (Hytrin) 5 mg HS PO Last administered on 12/07/16 20:28; Admin Dose 5 MG; Start 12/03/16 at 21:00; Status Future Hold Acetaminophen/ Hydrocodone Bitart ([place] (5/325)) 1 tab Q6H PRN PO PAIN LEVEL 4 -7 Last administered on 12/10/16 21:31; Admin Dose 1 TAB; Start 12/02/16 at 23: 30 Acetaminophen (Tylenol Tab) 650 mg Q6H PRN PO PAIN AND OR ELEVATED TEMP Last administered on 12/18/16 10:44; Admin Dose 650 MG; Start 12/02/16 at 23:30 Docusate Sodium (Colace) 100 mg BID PO Last administered on 12/08/16 20:32; Admin Dose 100 MG; Start 12/03/16 at 09:00; Status Future Hold Zolpidem Tartrate (Ambien) 5 mg HS PRN PO INSOMNIA Last administered on 00:45; Admin Dose 5 MG; Start 12/02/16 at 23:30 Benazepril HCl (Lotensin) 10 mg DAILY PO Last administered on 12/07/16 08:26; Admin Dose 10 MG; Start 12/04/16 at 09:00; Status Future Hold Collagenase (Santyl) 1 applic DAILY TOP Last administered on 12/18/16 08:48; Admin Dose 1 APPLIC; Start 12/07/16 at 16:00 Lorazepam (Ativan) 2 mg Q2 PRN IV AGITATION/ANXIETY Last administered on 03:32; Admin Dose 1 MG; Start 12/09/16 at 09:30 Morphine Sulfate (morphine) 2 mg Q2H PRN IV PAIN Last administered on 12/18/16 22:53; Admin Dose 2 MG; Start 12/09/16 at 09:30 Acetaminophen 650 mg 650 mg Q6H PRN CO ELEVATED TEMPERATURE Last administered on 12/09/16 17:53; Admin Dose 650 MG; Start 12/09/16 at 17:00 Piperacillin Sod/ Tazobactam Sod (Zosyn 2.25gm/ 50ml (Pmx)) 50 ml @ 100 mls/hr Q12 IVPB Last administered on 12/19/16 08:47; Admin Dose 100 MLS/HR; Start at 21:00 Metoprolol Tartrate 5 mg 5 mg Q4H PRN IV HR>100 Last administered on 12/10/16 22:23; Admin Dose 5 MG; Start 12/09/16 at 17:48 Phenylephrine HCl/ Dextrose (Fernandez-Syneph/D5W) 500 ml @ 75 mls/hr TITRATE IV Last administered on 12/13/16 15:21; Admin Dose 37.5 MLS/HR; Start 12/09/16 at 22:00 Amiodarone HCl (Cordarone) 200 mg BID PO Last administered on 12/18/16 20:23; Admin Dose 200 MG; Start 12/10/16 at 13:00 Hydralazine HCl (Apresoline) 10 mg Q6H PRN IV SBP>150mm hg Last administered on 12/19/16 08:50; Admin Dose 10 MG; Start 12/11/16 at 10:30 Morphine Sulfate (morphine) 2 mg Q2H PRN IV PAIN LEVEL 4-7; Start 12/13/16 at 10 :00 Insulin Aspart NOVOLOG *MODERATE* ALGORI... Q4 SC Last administered on 10:05; Admin Dose 2 UNIT; Start 12/14/16 at 09:00 Caspofungin/ Sodium Chloride (Cancidas/NS) 250 ml @ 250 mls/hr Q24H IVPB Last administered on 12/18/16 10:44; Admin Dose 250 MLS/HR; Start 12/15/16 at 11:00 Metoprolol Tartrate (Lopressor) 12.5 mg BID PO Last administered on 12/18/16 20 :24; Admin Dose 12.5 MG; Start 12/16/16 at 21:00 Pantoprazole 40 mg 40 mg DAILY@06 IV Last administered on 12/19/16 06:43; Admin Dose 40 MG; Start 12/17/16 at 06:00 Linezolid (Zyvox 600mg/D5W (Pmx)) 300 ml @ 300 mls/hr Q12 IVPB Last administered on 12/19/16 10:00; Admin Dose 300 MLS/HR; Start 12/17/16 at 21:00 Insulin Glargine (Lantus) 19 unit DAILY@20 SC Last administered on 12/18/16 19: 50; Admin Dose 19 UNIT; Start 12/18/16 at 20:00 YULIANA SIMMONS December 19, 2016 11:27
[2016-12-19] MEDS: CASPOFUNGIN 50 MG in SOD CHLORIDE 0.9% 250 ML IVPB SCH (12:06)
[2016-12-19 12:16] LABS: BASOPHIL # 0.1 10^3/ul (0.0-0.1); EOSINOPHILS # 0.1 10^3/ul (0.0-0.5); LYMPHOCYTES # 0.5 10^3/ul (0.8-2.9); MONOCYTE # 0.6 10^3/ul (0.3-0.9); NEUTROPHIL # 10.4 10^3/ul (1.6-7.5)
--- NOTE | 2016-12-19 12:28 | CONS ---
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 superficial swab grew inna only - ARANZA, on HD from 12/09/2016 - A fib - troponin+ - DM - HTN recommendations: - f/u wound culture - f/u cultures from thoracentesis today - f/u sensitivity of C. glabrata for flucon, caspo and voriconazole on 12/16/2916 - continue caspofungin (12/14/2016-) - continue renally dosed pip/tazo (12/03/2016) empirically for diabetic foot infection, and sepsis - cont. linezolid (12/13/2016-) because the lesion of L 1st toe is purulent, and I want to enhance coverage of skin roni - if blood cultures on 12/13/2016 grows yeast, we recommend d/c HD catheter - ultimately, Pt Pt needs 6 weeks of antibiotics to treat 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 and left fourth proximal phalanx: 2016 through 01/15/2017 Problems: Consultation Date/Type/Reason Admit Date/Time Dec 02, 2016 at 21:01 Type of Consultation: id Referring Provider: VIET PARKER MD 24 HR Interval Summary Free Text/Dictation d/w nursing Exam/Review of Systems Vital Signs Vitals Vital Signs Date Time Temp Pulse Resp B/P Pulse Ox O2 Delivery O2 Flow Rate FiO2 12/19/16 12:00 89 12/19/16 11:00 21 108/53 89 Room Air 12/19/16 10:00 3.0 12/19/16 08:00 97.9 12/19/16 07:10 100 Intake and Output 5/6/17 5/6/17 5/7/17 15:00 23:00 07:00 Intake Total 1391.176 ml 570 ml 0 ml Output Total 4425 ml 10 ml 55 ml Balance -3033.824 ml 560 ml -55 ml Exam Constitutional: alert, oriented, well developed Psych: nl mood/affect, no complaints Head: atraumatic, normocephalic Eyes: EOMI, PERRL, nl conjunctiva, nl lids, nl sclera ENMT: nl external ears & nose, nl lips & teeth, nl nasal mucosa & septum Respiratory: clear to auscultation, normal air movement Cardiovascular: nl pulses, regular rate and rhythm Gastrointestinal: nl liver, spleen, non-tender, soft Results Result Diagram: 12/19/16 0445 12/19/16 0445 Results 24 hrs Laboratory Tests Test 12/18/16 13:07 12/18/16 17:58 12/18/16 19:48 12/18/16 20:28 Bedside Glucose 200 196 173 183 Test 12/19/16 00:25 12/19/16 01:09 12/19/16 02:27 12/19/16 04:45 Blood Gas Specimen Source Blood arterial Arterial Blood Date Drawn 12/19/2016 12:30:36 AM Arterial Blood pH (Temp corrected) 7.166 *L Arterial Blood pCO2 (Temp correct) 66.0 H Arterial Blood pO2 (Temp corrected) 84.1 Arterial Blood HCO3 23.3 Arterial Blood Base Excess -6.2 L Arterial Blood Oxygen Saturation 92.9 L Derek Test ACCEPTAB Arterial Blood Gas Puncture Site Right Radial Arterial Blood Carboxyhemoglobin 0.6 Arterial Blood Methemoglobin 0.4 Blood Gas A-a O2 Differential 424.3 H Oxyhemoglobin Percent 92.0 L Total Hemoglobin 12.7 Blood Gas Temperature 37.0 Blood Gas Modality MASK - NRB FiO2 81.0 Blood Gas Critical Value Read Back DPATEL RN Blood Gas Notified Whom MA Blood Gas Notified Time 12/19/2016 12:46:28 AM Bedside Glucose 259 H 247 H White Blood Count 11.7 #H Red Blood Count 3.24 L Hemoglobin 10.2 L Hematocrit 31.5 L Mean Corpuscular Volume 97.2 Mean Corpuscular Hemoglobin 31.5 Mean Corpuscular Hemoglobin Concent 32.4 Red Cell Distribution Width 13.3 Platelet Count 210 Mean Platelet Volume 9.6 Neutrophils % 89.0 H Lymphocytes % 4.0 L Monocytes % 5.0 Eosinophils % 1.0 Basophils % 1.0 Neutrophils # 10.4 H Lymphocytes # 0.5 L Monocytes # 0.6 Eosinophils # 0.1 Basophils # 0.1 Differential Comment MANUAL DIFF [place] FEW Sodium Level 140 Potassium Level 4.8 Chloride Level 105 Carbon Dioxide Level 25 Anion Gap 15 Blood Urea Nitrogen 42 H Creatinine 6.88 H Glucose Level 212 Calcium Level 8.2 L Phosphorus Level 9.3 #H Magnesium Level 2.6 H Total Bilirubin 0.2 Direct Bilirubin 0.00 Indirect Bilirubin 0.2 Aspartate Amino Transf (AST/SGOT) 15 Alanine Aminotransferase (ALT/SGPT) 31 Alkaline Phosphatase 100 Troponin I 0.189 *H Total Protein 7.2 Albumin 3.3 Globulin 3.90 H Albumin/Globulin Ratio 0.84 Test 12/19/16 04:49 12/19/16 06:00 12/19/16 10:03 12/19/16 12:11 Bedside Glucose 183 171 201 Blood Gas Specimen Source Blood arterial Arterial Blood Date Drawn 12/19/2016 6:30:30 AM Arterial Blood pH (Temp corrected) 7.334 L Arterial Blood pCO2 (Temp correct) 44.4 Arterial Blood pO2 (Temp corrected) 433.4 H Arterial Blood HCO3 23.1 Arterial Blood Base Excess -2.8 Arterial Blood Oxygen Saturation 99.5 H Derek Test N/A Arterial Blood Gas Puncture Site Right Brachial Arterial Blood Carboxyhemoglobin 0.3 Arterial Blood Methemoglobin 0.3 Blood Gas A-a O2 Differential 235.2 H Oxyhemoglobin Percent 98.9 Total Hemoglobin 11.0 L Blood Gas Temperature 37.0 Blood Gas Respiration Rate 20.0 Blood Gas Actual Respiration Rate 25 Blood Gas Modality MASK - BIPAP FiO2 100.0 Blood Gas IPAP/EPAP Ratio 20/8 Blood Gas Notified Whom MA Blood Gas Notified Time 12/19/2016 6:43:18 AM Medications Medications Current Medications Diagnostic Test (Pha) (Accu-Chek) 1 ea 02 XX Last administered on 12/19/16 02: 00; Admin Dose 1 EA; Start 12/03/16 at 02:00 Ondansetron HCl (Zofran Inj) 4 mg Q6H PRN IV NAUSEA AND/OR VOMITING Last administered on 12/13/16 01:13; Admin Dose 4 MG; Start 12/02/16 at 22:30 Miscellaneous Information 1 ea NOTE XX ; Start 12/02/16 at 23:00 Glucose (Glutose) 15 gm Q15M PRN PO DECREASED GLUCOSE; Start 12/02/16 at 23:00 Glucose (Glutose) 22.5 gm Q15M PRN PO DECREASED GLUCOSE; Start 12/02/16 at 23: 00 Dextrose (D50w Syringe) 25 ml Q15M PRN IV DECREASED GLUCOSE Last administered on 12/10/16 05:52; Admin Dose 25 ML; Start 12/02/16 at 23:00 Dextrose (D50w Syringe) 50 ml Q15M PRN IV DECREASED GLUCOSE; Start 12/02/16 at 23:00 Glucagon (Glucagen) 1 mg Q15M PRN IM DECREASED GLUCOSE; Start 12/02/16 at 23:00 Glucose (Glutose) 15 gm Q15M PRN BUCCAL DECREASED GLUCOSE; Start 12/02/16 at 23 :00 Aspirin (Halfprin) 81 mg DAILY PO Last administered on 12/18/16 08:46; Admin Dose 81 MG; Start 12/03/16 at 09:00 Gabapentin (Neurontin) 800 mg TID PO Last administered on 12/08/16 20:33; Admin Dose 800 MG; Start 12/03/16 at 09:00; Status Future Hold Meclizine HCl (Antivert) 25 mg TID PRN PO dizziness Last administered on 10:04; Admin Dose 25 MG; Start 12/02/16 at 23:00 Terazosin HCl (Hytrin) 5 mg HS PO Last administered on 12/07/16 20:28; Admin Dose 5 MG; Start 12/03/16 at 21:00; Status Future Hold Acetaminophen/ Hydrocodone Bitart ([place] (5/325)) 1 tab Q6H PRN PO PAIN LEVEL 4 -7 Last administered on 12/10/16 21:31; Admin Dose 1 TAB; Start 12/02/16 at 23: 30 Acetaminophen (Tylenol Tab) 650 mg Q6H PRN PO PAIN AND OR ELEVATED TEMP Last administered on 12/18/16 10:44; Admin Dose 650 MG; Start 12/02/16 at 23:30 Docusate Sodium (Colace) 100 mg BID PO Last administered on 12/08/16 20:32; Admin Dose 100 MG; Start 12/03/16 at 09:00; Status Future Hold Zolpidem Tartrate (Ambien) 5 mg HS PRN PO INSOMNIA Last administered on 00:45; Admin Dose 5 MG; Start 12/02/16 at 23:30 Benazepril HCl (Lotensin) 10 mg DAILY PO Last administered on 12/07/16 08:26; Admin Dose 10 MG; Start 12/04/16 at 09:00; Status Future Hold Collagenase (Santyl) 1 applic DAILY TOP Last administered on 12/18/16 08:48; Admin Dose 1 APPLIC; Start 12/07/16 at 16:00 Lorazepam (Ativan) 2 mg Q2 PRN IV AGITATION/ANXIETY Last administered on 03:32; Admin Dose 1 MG; Start 12/09/16 at 09:30 Morphine Sulfate (morphine) 2 mg Q2H PRN IV PAIN Last administered on 12/18/16 22:53; Admin Dose 2 MG; Start 12/09/16 at 09:30 Acetaminophen 650 mg 650 mg Q6H PRN IN ELEVATED TEMPERATURE Last administered on 12/09/16 17:53; Admin Dose 650 MG; Start 12/09/16 at 17:00 Piperacillin Sod/ Tazobactam Sod (Zosyn 2.25gm/ 50ml (Pmx)) 50 ml @ 100 mls/hr Q12 IVPB Last administered on 12/19/16 08:47; Admin Dose 100 MLS/HR; Start at 21:00 Metoprolol Tartrate 5 mg 5 mg Q4H PRN IV HR>100 Last administered on 12/10/16 22:23; Admin Dose 5 MG; Start 12/09/16 at 17:48 Phenylephrine HCl/ Dextrose (Fernandez-Syneph/D5W) 500 ml @ 75 mls/hr TITRATE IV Last administered on 12/13/16 15:21; Admin Dose 37.5 MLS/HR; Start 12/09/16 at 22:00 Amiodarone HCl (Cordarone) 200 mg BID PO Last administered on 12/18/16 20:23; Admin Dose 200 MG; Start 12/10/16 at 13:00 Hydralazine HCl (Apresoline) 10 mg Q6H PRN IV SBP>150mm hg Last administered on 12/19/16 08:50; Admin Dose 10 MG; Start 12/11/16 at 10:30 Morphine Sulfate (morphine) 2 mg Q2H PRN IV PAIN LEVEL 4-7; Start 12/13/16 at 10 :00 Insulin Aspart NOVOLOG *MODERATE* ALGORI... Q4 SC Last administered on 12:12; Admin Dose 2 UNIT; Start 12/14/16 at 09:00 Caspofungin/ Sodium Chloride (Cancidas/NS) 250 ml @ 250 mls/hr Q24H IVPB Last administered on 12/19/16 12:06; Admin Dose 250 MLS/HR; Start 12/15/16 at 11:00 Metoprolol Tartrate (Lopressor) 12.5 mg BID PO Last administered on 12/18/16 20 :24; Admin Dose 12.5 MG; Start 12/16/16 at 21:00 Pantoprazole 40 mg 40 mg DAILY@06 IV Last administered on 12/19/16 06:43; Admin Dose 40 MG; Start 12/17/16 at 06:00 Linezolid (Zyvox 600mg/D5W (Pmx)) 300 ml @ 300 mls/hr Q12 IVPB Last administered on 12/19/16 10:00; Admin Dose 300 MLS/HR; Start 12/17/16 at 21:00 Insulin Glargine (Lantus) 19 unit DAILY@20 SC Last administered on 12/18/16 19: 50; Admin Dose 19 UNIT; Start 12/18/16 at 20:00 NIKHIL RAM MD December 19, 2016 12:28
--- NOTE | 2016-12-19 12:29 | RADRPT ---
PROCEDURE: XR Chest. CLINICAL INDICATION: Shortness of breath. TECHNIQUE: Single frontal view. COMPARISON: 12/18/2016. FINDINGS: The endotracheal tube and nasogastric tube have been removed. The left arm PICC line remains in sat isfactory position. There is bilateral pulmonary airspace and interstitial disease consistent with pulmonary edema, worse than seen previously. There is an old healed fracture of the midshaft of the right clavicle. The heart size is normal. There is no pleural effusion. There is no pneumothorax. IMPRESSION: 1. Endotracheal tube and nasogastric tube removed. 2. Worse appearance of the lungs. RPTAT: QQ .Bruce Zurita MD, MD Date Time Electronically viewed and signed by .Bruce Zurita MD, MD on 12/19/2016 12:28 .R/
--- NOTE | 2016-12-19 12:51 | CONS ---
Date/Time of Note Date/Time of Note DATE: 12/19/16 TIME: 12:49 Assessment/Plan Assessment/Plan Additional Assessment/Plan 1. Atrial fibrillation-currently in SR with PAC's - now in sinus - will monitor 2. Hypotension-resolved off of fernandez - better now 3. Abnormal electrocardiogram with inferolateral T-wave inversions. 4. Respiratory failure-s/p intubation and remains - weaning nw, hope to extubate soon 5. Nonhealing toe ulceration- on therapy now 6. Peripheral arterial disease by arterial ultrasound of the lower extremities this admission. 7. Diabetes mellitus- medications reviewed 8. Fevers. 9. Positive troponin-downtrended 10.Bradycardia-mainly 50's Consultation Date/Type/Reason Admit Date/Time Dec 02, 2016 at 21:01 Initial Consult Date 12/03/16 Type of Consultation: id Referring Provider: VIET PARKER MD 24 HR Interval Summary Free Text/Dictation NO acute change - BP stable - tolerated extubation well, in sinus now ROS: No fever, no chills, no nausea, no vomiting, no diarrhea/constipation No recent weight changes No chest pain, no PND, no orthopnea No dizziness, blurred vision No thirst, no heat or cold intolerance Exam/Review of Systems Vital Signs Vitals Vital Signs Date Time Temp Pulse Resp B/P Pulse Ox O2 Delivery O2 Flow Rate FiO2 12/19/16 12:00 89 12/19/16 11:00 21 108/53 89 Room Air 12/19/16 10:00 3.0 12/19/16 08:00 97.9 12/19/16 07:10 100 Intake and Output 12/18/16 12/18/16 12/19/16 15:00 23:00 07:00 Intake Total 1391.176 ml 570 ml 0 ml Output Total 4425 ml 10 ml 55 ml Balance -3033.824 ml 560 ml -55 ml Exam General: WN/WD/NAD, AOx 2-3 HEENT: Unicetric/atraumatic/EOMI (follow commands) NECK: JVD elevated, no thyromegaly Lymph: no lymphadenopathy HEART: regular with no S3, II/ systolic murmur at apex LUNGS: Coarse sounds ABD: soft, NT, ND, +BS : Intact Neuro: non focal SKIN: chronic changes EXT: trace edema Results Result Diagram: 12/19/16 0445 12/19/16 0445 Results 24 hrs Laboratory Tests Test 12/18/16 13:07 12/18/16 17:58 12/18/16 19:48 12/18/16 20:28 Bedside Glucose 200 196 173 183 Test 12/19/16 00:25 12/19/16 01:09 12/19/16 02:27 12/19/16 04:45 Blood Gas Specimen Source Blood arterial Arterial Blood Date Drawn 12/19/2016 12:30:36 AM Arterial Blood pH (Temp corrected) 7.166 *L Arterial Blood pCO2 (Temp correct) 66.0 H Arterial Blood pO2 (Temp corrected) 84.1 Arterial Blood HCO3 23.3 Arterial Blood Base Excess -6.2 L Arterial Blood Oxygen Saturation 92.9 L Derek Test ACCEPTAB Arterial Blood Gas Puncture Site Right Radial Arterial Blood Carboxyhemoglobin 0.6 Arterial Blood Methemoglobin 0.4 Blood Gas A-a O2 Differential 424.3 H Oxyhemoglobin Percent 92.0 L Total Hemoglobin 12.7 Blood Gas Temperature 37.0 Blood Gas Modality MASK - NRB FiO2 81.0 Blood Gas Critical Value Read Back DPATEL RN Blood Gas Notified Whom MA Blood Gas Notified Time 12/19/2016 12:46:28 AM Bedside Glucose 259 H 247 H White Blood Count 11.7 #H Red Blood Count 3.24 L Hemoglobin 10.2 L Hematocrit 31.5 L Mean Corpuscular Volume 97.2 Mean Corpuscular Hemoglobin 31.5 Mean Corpuscular Hemoglobin Concent 32.4 Red Cell Distribution Width 13.3 Platelet Count 210 Mean Platelet Volume 9.6 Neutrophils % 89.0 H Lymphocytes % 4.0 L Monocytes % 5.0 Eosinophils % 1.0 Basophils % 1.0 Neutrophils # 10.4 H Lymphocytes # 0.5 L Monocytes # 0.6 Eosinophils # 0.1 Basophils # 0.1 Differential Comment MANUAL DIFF Rouleau FEW Sodium Level 140 Potassium Level 4.8 Chloride Level 105 Carbon Dioxide Level 25 Anion Gap 15 Blood Urea Nitrogen 42 H Creatinine 6.88 H Glucose Level 212 Calcium Level 8.2 L Phosphorus Level 9.3 #H Magnesium Level 2.6 H Total Bilirubin 0.2 Direct Bilirubin 0.00 Indirect Bilirubin 0.2 Aspartate Amino Transf (AST/SGOT) 15 Alanine Aminotransferase (ALT/SGPT) 31 Alkaline Phosphatase 100 Troponin I 0.189 *H Total Protein 7.2 Albumin 3.3 Globulin 3.90 H Albumin/Globulin Ratio 0.84 Test 12/19/16 04:49 12/19/16 06:00 12/19/16 10:03 12/19/16 12:11 Bedside Glucose 183 171 201 Blood Gas Specimen Source Blood arterial Arterial Blood Date Drawn 12/19/2016 6:30:30 AM Arterial Blood pH (Temp corrected) 7.334 L Arterial Blood pCO2 (Temp correct) 44.4 Arterial Blood pO2 (Temp corrected) 433.4 H Arterial Blood HCO3 23.1 Arterial Blood Base Excess -2.8 Arterial Blood Oxygen Saturation 99.5 H Derek Test N/A Arterial Blood Gas Puncture Site Right Brachial Arterial Blood Carboxyhemoglobin 0.3 Arterial Blood Methemoglobin 0.3 Blood Gas A-a O2 Differential 235.2 H Oxyhemoglobin Percent 98.9 Total Hemoglobin 11.0 L Blood Gas Temperature 37.0 Blood Gas Respiration Rate 20.0 Blood Gas Actual Respiration Rate 25 Blood Gas Modality MASK - BIPAP FiO2 100.0 Blood Gas IPAP/EPAP Ratio 20/8 Blood Gas Notified Whom MA Blood Gas Notified Time 12/19/2016 6:43:18 AM Medications Medications Current Medications Diagnostic Test (Pha) (Accu-Chek) 1 ea 02 XX Last administered on 12/19/16 02: 00; Admin Dose 1 EA; Start 12/03/16 at 02:00 Ondansetron HCl (Zofran Inj) 4 mg Q6H PRN IV NAUSEA AND/OR VOMITING Last administered on 12/13/16 01:13; Admin Dose 4 MG; Start 12/02/16 at 22:30 Miscellaneous Information 1 ea NOTE XX ; Start 12/02/16 at 23:00 Glucose (Glutose) 15 gm Q15M PRN PO DECREASED GLUCOSE; Start 12/02/16 at 23:00 Glucose (Glutose) 22.5 gm Q15M PRN PO DECREASED GLUCOSE; Start 12/02/16 at 23: 00 Dextrose (D50w Syringe) 25 ml Q15M PRN IV DECREASED GLUCOSE Last administered on 12/10/16 05:52; Admin Dose 25 ML; Start 12/02/16 at 23:00 Dextrose (D50w Syringe) 50 ml Q15M PRN IV DECREASED GLUCOSE; Start 12/02/16 at 23:00 Glucagon (Glucagen) 1 mg Q15M PRN IM DECREASED GLUCOSE; Start 12/02/16 at 23:00 Glucose (Glutose) 15 gm Q15M PRN BUCCAL DECREASED GLUCOSE; Start 12/02/16 at 23 :00 Aspirin (Halfprin) 81 mg DAILY PO Last administered on 12/18/16 08:46; Admin Dose 81 MG; Start 12/03/16 at 09:00 Gabapentin (Neurontin) 800 mg TID PO Last administered on 12/08/16 20:33; Admin Dose 800 MG; Start 12/03/16 at 09:00; Status Future Hold Meclizine HCl (Antivert) 25 mg TID PRN PO dizziness Last administered on 10:04; Admin Dose 25 MG; Start 12/02/16 at 23:00 Terazosin HCl (Hytrin) 5 mg HS PO Last administered on 12/07/16 20:28; Admin Dose 5 MG; Start 12/03/16 at 21:00; Status Future Hold Acetaminophen/ Hydrocodone Bitart ([place] (5/325)) 1 tab Q6H PRN PO PAIN LEVEL 4 -7 Last administered on 12/10/16 21:31; Admin Dose 1 TAB; Start 12/02/16 at 23: 30 Acetaminophen (Tylenol Tab) 650 mg Q6H PRN PO PAIN AND OR ELEVATED TEMP Last administered on 12/18/16 10:44; Admin Dose 650 MG; Start 12/02/16 at 23:30 Docusate Sodium (Colace) 100 mg BID PO Last administered on 12/08/16 20:32; Admin Dose 100 MG; Start 12/03/16 at 09:00; Status Future Hold Zolpidem Tartrate (Ambien) 5 mg HS PRN PO INSOMNIA Last administered on 00:45; Admin Dose 5 MG; Start 12/02/16 at 23:30 Benazepril HCl (Lotensin) 10 mg DAILY PO Last administered on 12/07/16 08:26; Admin Dose 10 MG; Start 12/04/16 at 09:00; Status Future Hold Collagenase (Santyl) 1 applic DAILY TOP Last administered on 12/18/16 08:48; Admin Dose 1 APPLIC; Start 12/07/16 at 16:00 Lorazepam (Ativan) 2 mg Q2 PRN IV AGITATION/ANXIETY Last administered on 03:32; Admin Dose 1 MG; Start 12/09/16 at 09:30 Morphine Sulfate (morphine) 2 mg Q2H PRN IV PAIN Last administered on 12/18/16 22:53; Admin Dose 2 MG; Start 12/09/16 at 09:30 Acetaminophen 650 mg 650 mg Q6H PRN [place] ELEVATED TEMPERATURE Last administered on 12/09/16 17:53; Admin Dose 650 MG; Start 12/09/16 at 17:00 Piperacillin Sod/ Tazobactam Sod (Zosyn 2.25gm/ 50ml (Pmx)) 50 ml @ 100 mls/hr Q12 IVPB Last administered on 12/19/16 08:47; Admin Dose 100 MLS/HR; Start at 21:00 Metoprolol Tartrate 5 mg 5 mg Q4H PRN IV HR>100 Last administered on 12/10/16 22:23; Admin Dose 5 MG; Start 12/09/16 at 17:48 Phenylephrine HCl/ Dextrose (Fernandez-Syneph/D5W) 500 ml @ 75 mls/hr TITRATE IV Last administered on 12/13/16 15:21; Admin Dose 37.5 MLS/HR; Start 12/09/16 at 22:00 Amiodarone HCl (Cordarone) 200 mg BID PO Last administered on 12/18/16 20:23; Admin Dose 200 MG; Start 12/10/16 at 13:00 Hydralazine HCl (Apresoline) 10 mg Q6H PRN IV SBP>150mm hg Last administered on 12/19/16 08:50; Admin Dose 10 MG; Start 12/11/16 at 10:30 Morphine Sulfate (morphine) 2 mg Q2H PRN IV PAIN LEVEL 4-7; Start 12/13/16 at 10 :00 Insulin Aspart NOVOLOG *MODERATE* ALGORI... Q4 SC Last administered on 12:12; Admin Dose 2 UNIT; Start 12/14/16 at 09:00 Caspofungin/ Sodium Chloride (Cancidas/NS) 250 ml @ 250 mls/hr Q24H IVPB Last administered on 12/19/16 12:06; Admin Dose 250 MLS/HR; Start 12/15/16 at 11:00 Metoprolol Tartrate (Lopressor) 12.5 mg BID PO Last administered on 12/18/16 20 :24; Admin Dose 12.5 MG; Start 12/16/16 at 21:00 Pantoprazole 40 mg 40 mg DAILY@06 IV Last administered on 12/19/16 06:43; Admin Dose 40 MG; Start 12/17/16 at 06:00 Linezolid (Zyvox 600mg/D5W (Pmx)) 300 ml @ 300 mls/hr Q12 IVPB Last administered on 12/19/16 10:00; Admin Dose 300 MLS/HR; Start 12/17/16 at 21:00 Insulin Glargine (Lantus) 19 unit DAILY@20 SC Last administered on 12/18/16 19: 50; Admin Dose 19 UNIT; Start 12/18/16 at 20:00 DAVE NICOLE MD December 19, 2016 12:51
--- NOTE | 2016-12-19 13:18 | CONS ---
Date/Time of Note Date/Time of Note DATE: 12/19/16 TIME: 13:15 Consult Date/Type/Reason Admit Date/Time Dec 02, 2016 at 21:01 Initial Consult Date 12/03/16 Type of Consultation: Pulm icu Ordering Provider: VIET PARKER MD Subjective Patient was extubated yesterday Remains stable until late evening when he was more somnolent and arterial blood gas demonstrated hypercapnia with respiratory acidosis Patient was placed on BiPAP overnight This morning is awake alert and oriented appears comfortable at rest Objective Vital Signs Date Time Temp Pulse Resp B/P Pulse Ox O2 Delivery O2 Flow Rate FiO2 12/19/16 12:00 89 12/19/16 11:00 21 108/53 89 Room Air 12/19/16 10:00 3.0 12/19/16 08:00 97.9 12/19/16 07:10 100 Intake and Output 12/18/16 12/18/16 12/19/16 14:59 22:59 06:59 Intake Total 1402.352 ml 627 ml 0 ml Output Total 4435 ml 10 ml 30 ml Balance -3032.648 ml 617 ml -30 ml Exam PHYSICAL EXAMINATION: GENERAL: Elderly [place] gentleman nasal cannula O2 VITAL SIGNS: As above NECK: Supple. No JVD or lymphadenopathy. CARDIAC: S1, S2, no added sounds or murmurs. CHEST: Diminished air entry bilaterally. ABDOMEN: Soft, nontender. No guarding or rebound. EXTREMITIES: No cyanosis, clubbing, edema. NEUROLOGIC: Generalized weakness, but no focal deficits. Results/Medications Result Diagram: 12/19/16 0445 12/19/16 0445 Results 24 hrs Chest x-ray Significantly worse pulmonary edema Laboratory Tests Test 12/18/16 17:58 12/18/16 19:48 12/18/16 20:28 12/19/16 00:25 Bedside Glucose 196 173 183 Blood Gas Specimen Source Blood arterial Arterial Blood Date Drawn 12/19/2016 12:30:36 AM Arterial Blood pH (Temp corrected) 7.166 *L Arterial Blood pCO2 (Temp correct) 66.0 H Arterial Blood pO2 (Temp corrected) 84.1 Arterial Blood HCO3 23.3 Arterial Blood Base Excess -6.2 L Arterial Blood Oxygen Saturation 92.9 L Derek Test ACCEPTAB Arterial Blood Gas Puncture Site Right Radial Arterial Blood Carboxyhemoglobin 0.6 Arterial Blood Methemoglobin 0.4 Blood Gas A-a O2 Differential 424.3 H Oxyhemoglobin Percent 92.0 L Total Hemoglobin 12.7 Blood Gas Temperature 37.0 Blood Gas Modality MASK - NRB FiO2 81.0 Blood Gas Critical Value Read Back DPATEL RN Blood Gas Notified Whom SHRAVAN Blood Gas Notified Time 12/19/2016 12:46:28 AM Test 12/19/16 01:09 12/19/16 02:27 12/19/16 04:45 12/19/16 04:49 Bedside Glucose 259 H 247 H 183 White Blood Count 11.7 #H Red Blood Count 3.24 L Hemoglobin 10.2 L Hematocrit 31.5 L Mean Corpuscular Volume 97.2 Mean Corpuscular Hemoglobin 31.5 Mean Corpuscular Hemoglobin Concent 32.4 Red Cell Distribution Width 13.3 Platelet Count 210 Mean Platelet Volume 9.6 Neutrophils % 89.0 H Lymphocytes % 4.0 L Monocytes % 5.0 Eosinophils % 1.0 Basophils % 1.0 Neutrophils # 10.4 H Lymphocytes # 0.5 L Monocytes # 0.6 Eosinophils # 0.1 Basophils # 0.1 Differential Comment MANUAL DIFF Rouleau FEW Sodium Level 140 Potassium Level 4.8 Chloride Level 105 Carbon Dioxide Level 25 Anion Gap 15 Blood Urea Nitrogen 42 H Creatinine 6.88 H Glucose Level 212 Calcium Level 8.2 L Phosphorus Level 9.3 #H Magnesium Level 2.6 H Total Bilirubin 0.2 Direct Bilirubin 0.00 Indirect Bilirubin 0.2 Aspartate Amino Transf (AST/SGOT) 15 Alanine Aminotransferase (ALT/SGPT) 31 Alkaline Phosphatase 100 Troponin I 0.189 *H Total Protein 7.2 Albumin 3.3 Globulin 3.90 H Albumin/Globulin Ratio 0.84 Test 12/19/16 06:00 12/19/16 10:03 12/19/16 12:05 12/19/16 12:11 Blood Gas Specimen Source Blood arterial Arterial Blood Date Drawn 12/19/2016 6:30:30 AM Arterial Blood pH (Temp corrected) 7.334 L Arterial Blood pCO2 (Temp correct) 44.4 Arterial Blood pO2 (Temp corrected) 433.4 H Arterial Blood HCO3 23.1 Arterial Blood Base Excess -2.8 Arterial Blood Oxygen Saturation 99.5 H Derek Test N/A Arterial Blood Gas Puncture Site Right Brachial Arterial Blood Carboxyhemoglobin 0.3 Arterial Blood Methemoglobin 0.3 Blood Gas A-a O2 Differential 235.2 H Oxyhemoglobin Percent 98.9 Total Hemoglobin 11.0 L Blood Gas Temperature 37.0 Blood Gas Respiration Rate 20.0 Blood Gas Actual Respiration Rate 25 Blood Gas Modality MASK - BIPAP FiO2 100.0 Blood Gas IPAP/EPAP Ratio 20/8 Blood Gas Notified Whom MA Blood Gas Notified Time 12/19/2016 6:43:18 AM Bedside Glucose 171 201 Troponin I 0.145 *H Medications Current Medications Diagnostic Test (Pha) (Accu-Chek) 1 ea 02 XX Last administered on 12/19/16 02: 00; Admin Dose 1 EA; Start 12/03/16 at 02:00 Ondansetron HCl (Zofran Inj) 4 mg Q6H PRN IV NAUSEA AND/OR VOMITING Last administered on 12/13/16 01:13; Admin Dose 4 MG; Start 12/02/16 at 22:30 Miscellaneous Information 1 ea NOTE XX ; Start 12/02/16 at 23:00 Glucose (Glutose) 15 gm Q15M PRN PO DECREASED GLUCOSE; Start 12/02/16 at 23:00 Glucose (Glutose) 22.5 gm Q15M PRN PO DECREASED GLUCOSE; Start 12/02/16 at 23: 00 Dextrose (D50w Syringe) 25 ml Q15M PRN IV DECREASED GLUCOSE Last administered on 12/10/16 05:52; Admin Dose 25 ML; Start 12/02/16 at 23:00 Dextrose (D50w Syringe) 50 ml Q15M PRN IV DECREASED GLUCOSE; Start 12/02/16 at 23:00 Glucagon (Glucagen) 1 mg Q15M PRN IM DECREASED GLUCOSE; Start 12/02/16 at 23:00 Glucose (Glutose) 15 gm Q15M PRN BUCCAL DECREASED GLUCOSE; Start 12/02/16 at 23 :00 Aspirin (Halfprin) 81 mg DAILY PO Last administered on 12/18/16 08:46; Admin Dose 81 MG; Start 12/03/16 at 09:00 Gabapentin (Neurontin) 800 mg TID PO Last administered on 12/08/16 20:33; Admin Dose 800 MG; Start 12/03/16 at 09:00; Status Future Hold Meclizine HCl (Antivert) 25 mg TID PRN PO dizziness Last administered on 10:04; Admin Dose 25 MG; Start 12/02/16 at 23:00 Terazosin HCl (Hytrin) 5 mg HS PO Last administered on 12/07/16 20:28; Admin Dose 5 MG; Start 12/03/16 at 21:00; Status Future Hold Acetaminophen/ Hydrocodone Bitart ([place] (5/325)) 1 tab Q6H PRN PO PAIN LEVEL 4 -7 Last administered on 12/10/16 21:31; Admin Dose 1 TAB; Start 12/02/16 at 23: 30 Acetaminophen (Tylenol Tab) 650 mg Q6H PRN PO PAIN AND OR ELEVATED TEMP Last administered on 12/18/16 10:44; Admin Dose 650 MG; Start 12/02/16 at 23:30 Docusate Sodium (Colace) 100 mg BID PO Last administered on 12/08/16 20:32; Admin Dose 100 MG; Start 12/03/16 at 09:00; Status Future Hold Zolpidem Tartrate (Ambien) 5 mg HS PRN PO INSOMNIA Last administered on 00:45; Admin Dose 5 MG; Start 12/02/16 at 23:30 Benazepril HCl (Lotensin) 10 mg DAILY PO Last administered on 12/07/16 08:26; Admin Dose 10 MG; Start 12/04/16 at 09:00; Status Future Hold Collagenase (Santyl) 1 applic DAILY TOP Last administered on 12/18/16 08:48; Admin Dose 1 APPLIC; Start 12/07/16 at 16:00 Lorazepam (Ativan) 2 mg Q2 PRN IV AGITATION/ANXIETY Last administered on 03:32; Admin Dose 1 MG; Start 12/09/16 at 09:30 Morphine Sulfate (morphine) 2 mg Q2H PRN IV PAIN Last administered on 12/18/16 22:53; Admin Dose 2 MG; Start 12/09/16 at 09:30 Acetaminophen 650 mg 650 mg Q6H PRN [place] ELEVATED TEMPERATURE Last administered on 12/09/16 17:53; Admin Dose 650 MG; Start 12/09/16 at 17:00 Piperacillin Sod/ Tazobactam Sod (Zosyn 2.25gm/ 50ml (Pmx)) 50 ml @ 100 mls/hr Q12 IVPB Last administered on 12/19/16 08:47; Admin Dose 100 MLS/HR; Start at 21:00 Metoprolol Tartrate 5 mg 5 mg Q4H PRN IV HR>100 Last administered on 12/10/16 22:23; Admin Dose 5 MG; Start 12/09/16 at 17:48 Phenylephrine HCl/ Dextrose (Fernandez-Syneph/D5W) 500 ml @ 75 mls/hr TITRATE IV Last administered on 12/13/16 15:21; Admin Dose 37.5 MLS/HR; Start 12/09/16 at 22:00 Amiodarone HCl (Cordarone) 200 mg BID PO Last administered on 12/18/16 20:23; Admin Dose 200 MG; Start 12/10/16 at 13:00 Hydralazine HCl (Apresoline) 10 mg Q6H PRN IV SBP>150mm hg Last administered on 12/19/16 08:50; Admin Dose 10 MG; Start 12/11/16 at 10:30 Morphine Sulfate (morphine) 2 mg Q2H PRN IV PAIN LEVEL 4-7; Start 12/13/16 at 10 :00 Insulin Aspart NOVOLOG *MODERATE* ALGORI... Q4 SC Last administered on 12:12; Admin Dose 2 UNIT; Start 12/14/16 at 09:00 Caspofungin/ Sodium Chloride (Cancidas/NS) 250 ml @ 250 mls/hr Q24H IVPB Last administered on 12/19/16 12:06; Admin Dose 250 MLS/HR; Start 12/15/16 at 11:00 Metoprolol Tartrate (Lopressor) 12.5 mg BID PO Last administered on 12/18/16 20 :24; Admin Dose 12.5 MG; Start 12/16/16 at 21:00 Pantoprazole 40 mg 40 mg DAILY@06 IV Last administered on 12/19/16 06:43; Admin Dose 40 MG; Start 12/17/16 at 06:00 Linezolid (Zyvox 600mg/D5W (Pmx)) 300 ml @ 300 mls/hr Q12 IVPB Last administered on 12/19/16 10:00; Admin Dose 300 MLS/HR; Start 12/17/16 at 21:00 Insulin Glargine (Lantus) 19 unit DAILY@20 SC Last administered on 12/18/16t 19: 50; Admin Dose 19 UNIT; Start 12/18/16 at 20:00 Assessment/Plan Chief Complaint/Hosp Course IMPRESSION AND PLAN: 1. Acute kidney injury. On hemodialysis 2. Hypoxemic respiratory failure possibly secondary to recurrent pulmonary edema from volume overload 3. Underlying pulmonary edema secondary to renal insufficiency with volume overload, 4. Hypercapnic respiratory failure. 5. Diabetic foot ulcer 6. History of diabetes mellitus The patient will require 1. Continued supplemental O2 and nocturnal noninvasive positive pressure ventilation 2. Renal recommendations. Hemodialysis today per nephrology, aggressive volume removal if tolerated today if possible 3. Antibiotics for aspiration pneumonia, ID recommendations 4. DVT and GI prophylaxis. 5. Wound care per vascular surgery and podiatry Disposition Continue ICU care Problems: AUDELIA BARRIENTOS MD, [facility] December 19, 2016 13:18
[2016-12-19] MEDS: INSULIN GLARGINE [LANtus] 3 ML PEN SC SCH (20:43)
[2016-12-19] MEDS: morphine 2 MG INJ IV PRN (20:50)
[2016-12-20] VITALS (34 sets, daily range): BP systolic 103–154; BP diastolic 47–87; PULSE 53–109; RESP 8–25
[2016-12-20] MEDS: INSULIN ASPART [NOVOLOG] 3 ML PEN SC SCH ×6 (01:48→21:29)
[2016-12-20] MEDS: ACCU-CHEK XX SCH (01:55)
[2016-12-20] MEDS: morphine 2 MG INJ IV PRN (03:22)
[2016-12-20] MEDS: PANTOPRAZOLE 40 MG INJ IV SCH (05:28)
[2016-12-20 07:48] LABS: ADD SCAN DIFF NO
[2016-12-20 07:56] LABS: BASOPHIL # 0.1 10^3/ul (0.0-0.1); BASOPHILS % 0.6 % (0.0-2.0); EOSINOPHILS # 0.1 10^3/ul (0.0-0.5); EOSINOPHILS % 0.8 % (0.0-7.0); HEMATOCRIT 29.8 % (42.0-52.0); HEMOGLOBIN 9.6 g/dl (14.0-18.0); LYMPHOCYTES # 0.7 10^3/ul (0.8-2.9); LYMPHOCYTES % 7.2 % (15.0-51.0); MEAN CORPUSCULAR HEMOGLOBIN 31.4 pg (29.0-33.0); MEAN CORPUSCULAR HGB CONC 32.2 g/dl (32.0-37.0); MEAN CORPUSCULAR VOLUME 97.4 fl (82.0-101.0); MEAN PLATELET VOLUME 9.2 fl (7.4-10.4); MONOCYTE # 0.9 10^3/ul (0.3-0.9); MONOCYTES % 8.7 % (0.0-11.0); NEUTROPHIL # 8.1 10^3/ul (1.6-7.5); NEUTROPHILS % 80.3 % (39.0-77.0); PLATELET COUNT 214 10^3/UL (140-415); RED BLOOD COUNT 3.06 10^6/ul (4.70-6.10); RED CELL DISTRIBUTION WIDTH 13.6 % (11.5-14.5); WHITE BLOOD COUNT 10.1 10^3/ul (4.8-10.8)
[2016-12-20 08:15] LABS: POTASSIUM 4.3 mmol/L (3.5-5.1)
[2016-12-20 08:17] LABS: CREATININE 8.45 mg/dl (0.61-1.24)
[2016-12-20 08:18] LABS: CALCIUM 8.2 mg/dl (8.4-10.2)
[2016-12-20] MEDS: COLLAGENASE 30 GM TUBE TOP SCH (08:24)
[2016-12-20] MEDS: ASPIRIN (EC) 81 MG TAB PO SCH (08:30)
[2016-12-20] MEDS: PIPER-TAZO 2.25 GM (PMX) 50 ML IVPB SCH ×2 (08:31→21:27)
[2016-12-20] MEDS: LINEZOLID 600 MG/D5W (PMX) 300 ML IVPB SCH ×2 (08:31→21:26)
--- NOTE | 2016-12-20 08:59 | RADRPT ---
PROCEDURE: XR Chest 1 View. CLINICAL INDICATION: Shortness of breath. TECHNIQUE: AP view of the chest was obtained. COMPARISON: Yesterday. FINDINGS: The heart size is within normal limits. Calcified atherosclerosis is noted in the aorta. Left-sided PICC line is unchanged. Patchy infiltrates throughout both lungs, possibly combined small pleural effusions are unchanged. Osseous structures are unchanged. IMPRESSION: Calcified atherosclerosis in the aorta. Stable patchy infiltrates throughout both lungs, possibly combined with small pleural effusions. RPTAT: AA .Bishnu Ramos MD, MD Date Time Electronically viewed and signed by .Bishnu Ramos MD, MD on 12/20/2016 08:58 .P/
--- NOTE | 2016-12-20 09:43 | CONS ---
Date/Time of Note Date/Time of Note DATE: 12/20/16 TIME: 09:42 Assessment/Plan Assessment/Plan Additional Assessment/Plan Chest x-ray was reviewed from today which is showing pulmonary edema. Assessment recommendations; 1. Patient admitted with respiratory failure no successfully extubated several days ago. 2. Acute renal failure, on hemodialysis. 3. Persistent pulmonary edema. 4. History of diabetes and hypertension. 5. Cellulitis involving the left foot. Continue current treatment. Patient will be dialyzed again today. Consultation Date/Type/Reason Admit Date/Time Dec 02, 2016 at 21:01 Initial Consult Date 12/03/16 Type of Consultation: Pulm icu Referring Provider: VIET PARKER MD 24 HR Interval Summary Free Text/Dictation Patient condition is stable. Remains completely awake alert. Denies any shortness of breath, abdominal pain, nausea, vomiting. General exam; elderly male, awake alert currently in no distress. Exam/Review of Systems Vital Signs Vitals Vital Signs Date Time Temp Pulse Resp B/P Pulse Ox O2 Delivery O2 Flow Rate FiO2 12/20/16 08:00 91 12/20/16 07:00 18 133/68 87 12/20/16 04:00 97.8 12/20/16 03:00 50 12/19/16 20:10 3.0 12/19/16 18:00 Room Air Intake and Output 12/19/16 12/19/16 12/20/16 15:00 23:00 07:00 Intake Total 600 ml Output Total 75 ml 70 ml 58 ml Balance 525 ml -70 ml -58 ml Exam HEENT exam is; supple neck, no JVD. No lymphadenopathy. Midline trachea. No thyromegaly. Pharynx is clear. Patient is edentulous and wears dentures. Pupils are midsize reactive to light bilaterally. Chest examination; clear to ulceration. S1-S2 audible, no murmurs. Regular rhythm. Abdomen examination; soft, nontender, nondistended, no organomegaly. Bowel sounds audible. Extremity examination; no peripheral edema. There is a dressing applied over the left foot. 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 Results Result Diagram: 12/20/16 0742 12/20/16 0742 Results 24 hrs Laboratory Tests Test 12/19/16 10:03 12/19/16 12:05 12/19/16 12:11 12/19/16 18:05 Bedside Glucose 171 201 156 Troponin I 0.145 *H Test 12/19/16 19:20 12/19/16 20:39 12/19/16 22:34 12/20/16 01:41 Troponin I 0.145 *H Bedside Glucose 153 173 170 Test 12/20/16 05:33 12/20/16 07:42 12/20/16 08:32 Bedside Glucose 143 149 White Blood Count 10.1 Red Blood Count 3.06 L Hemoglobin 9.6 L Hematocrit 29.8 L Mean Corpuscular Volume 97.4 Mean Corpuscular Hemoglobin 31.4 Mean Corpuscular Hemoglobin Concent 32.2 Red Cell Distribution Width 13.6 Platelet Count 214 Mean Platelet Volume 9.2 Neutrophils % 80.3 H Lymphocytes % 7.2 L Monocytes % 8.7 Eosinophils % 0.8 Basophils % 0.6 Nucleated Red Blood Cells % 0.0 Neutrophils # 8.1 H Lymphocytes # 0.7 L Monocytes # 0.9 Eosinophils # 0.1 Basophils # 0.1 Nucleated Red Blood Cells # 0.0 Sodium Level 142 Potassium Level 4.3 Chloride Level 104 Carbon Dioxide Level 21 Anion Gap 21 H Blood Urea Nitrogen 59 H Creatinine 8.45 H Glucose Level 163 Calcium Level 8.2 L Medications Medications Current Medications Diagnostic Test (Pha) (Accu-Chek) 1 ea 02 XX Last administered on 12/20/16 01: 55; Admin Dose 1 EA; Start 12/03/16 at 02:00 Ondansetron HCl (Zofran Inj) 4 mg Q6H PRN IV NAUSEA AND/OR VOMITING Last administered on 12/13/16 01:13; Admin Dose 4 MG; Start 12/02/16 at 22:30 Miscellaneous Information 1 ea NOTE XX ; Start 12/02/16 at 23:00 Glucose (Glutose) 15 gm Q15M PRN PO DECREASED GLUCOSE; Start 12/02/16 at 23:00 Glucose (Glutose) 22.5 gm Q15M PRN PO DECREASED GLUCOSE; Start 12/02/16 at 23: 00 Dextrose (D50w Syringe) 25 ml Q15M PRN IV DECREASED GLUCOSE Last administered on 12/10/16 05:52; Admin Dose 25 ML; Start 12/02/16 at 23:00 Dextrose (D50w Syringe) 50 ml Q15M PRN IV DECREASED GLUCOSE; Start 12/02/16 at 23:00 Glucagon (Glucagen) 1 mg Q15M PRN IM DECREASED GLUCOSE; Start 12/02/16 at 23:00 Glucose (Glutose) 15 gm Q15M PRN BUCCAL DECREASED GLUCOSE; Start 12/02/16 at 23 :00 Aspirin (Halfprin) 81 mg DAILY PO Last administered on 12/20/16 08:30; Admin Dose 81 MG; Start 12/03/16 at 09:00 Gabapentin (Neurontin) 800 mg TID PO Last administered on 12/08/16 20:33; Admin Dose 800 MG; Start 12/03/16 at 09:00; Status Future Hold Meclizine HCl (Antivert) 25 mg TID PRN PO dizziness Last administered on 10:04; Admin Dose 25 MG; Start 12/02/16 at 23:00 Terazosin HCl (Hytrin) 5 mg HS PO Last administered on 12/07/16 20:28; Admin Dose 5 MG; Start 12/03/16 at 21:00; Status Future Hold Acetaminophen/ Hydrocodone Bitart (Pablo (5/325)) 1 tab Q6H PRN PO PAIN LEVEL 4 -7 Last administered on 12/10/16 21:31; Admin Dose 1 TAB; Start 12/02/16 at 23: 30 Acetaminophen (Tylenol Tab) 650 mg Q6H PRN PO PAIN AND OR ELEVATED TEMP Last administered on 12/18/16 10:44; Admin Dose 650 MG; Start 12/02/16 at 23:30 Docusate Sodium (Colace) 100 mg BID PO Last administered on 12/08/16 20:32; Admin Dose 100 MG; Start 12/03/16 at 09:00; Status Future Hold Zolpidem Tartrate (Ambien) 5 mg HS PRN PO INSOMNIA Last administered on 00:45; Admin Dose 5 MG; Start 12/02/16 at 23:30 Benazepril HCl (Lotensin) 10 mg DAILY PO Last administered on 12/07/16 08:26; Admin Dose 10 MG; Start 12/04/16 at 09:00; Status Future Hold Collagenase (Santyl) 1 applic DAILY TOP Last administered on 12/18/16 08:48; Admin Dose 1 APPLIC; Start 12/07/16 at 16:00 Lorazepam (Ativan) 2 mg Q2 PRN IV AGITATION/ANXIETY Last administered on 03:32; Admin Dose 1 MG; Start 12/09/16 at 09:30 Morphine Sulfate (morphine) 2 mg Q2H PRN IV PAIN Last administered on 12/20/16 03:22; Admin Dose 2 MG; Start 12/09/16 at 09:30 Acetaminophen 650 mg 650 mg Q6H PRN MO ELEVATED TEMPERATURE Last administered on 12/09/16 17:53; Admin Dose 650 MG; Start 12/09/16 at 17:00 Piperacillin Sod/ Tazobactam Sod (Zosyn 2.25gm/ 50ml (Pmx)) 50 ml @ 100 mls/hr Q12 IVPB Last administered on 12/20/16 08:31; Admin Dose 100 MLS/HR; Start at 21:00 Metoprolol Tartrate 5 mg 5 mg Q4H PRN IV HR>100 Last administered on 12/10/16 22:23; Admin Dose 5 MG; Start 12/09/16 at 17:48 Phenylephrine HCl/ Dextrose (Fernandez-Syneph/D5W) 500 ml @ 75 mls/hr TITRATE IV Last administered on 12/13/16 15:21; Admin Dose 37.5 MLS/HR; Start 12/09/16 at 22:00 Amiodarone HCl (Cordarone) 200 mg BID PO Last administered on 12/18/16 20:23; Admin Dose 200 MG; Start 12/10/16 at 13:00 Hydralazine HCl (Apresoline) 10 mg Q6H PRN IV SBP>150mm hg Last administered on 12/19/16 08:50; Admin Dose 10 MG; Start 12/11/16 at 10:30 Morphine Sulfate (morphine) 2 mg Q2H PRN IV PAIN LEVEL 4-7; Start 12/13/16 at 10 :00 Insulin Aspart NOVOLOG *MODERATE* ALGORI... Q4 SC Last administered on 08:35; Admin Dose 2 UNIT; Start 12/14/16 at 09:00 Caspofungin/ Sodium Chloride (Cancidas/NS) 250 ml @ 250 mls/hr Q24H IVPB Last administered on 12/19/16 12:06; Admin Dose 250 MLS/HR; Start 12/15/16 at 11:00 Metoprolol Tartrate (Lopressor) 12.5 mg BID PO Last administered on 12/18/16 20 :24; Admin Dose 12.5 MG; Start 12/16/16 at 21:00 Pantoprazole 40 mg 40 mg DAILY@06 IV Last administered on 12/20/16 05:28; Admin Dose 40 MG; Start 12/17/16 at 06:00 Linezolid (Zyvox 600mg/D5W (Pmx)) 300 ml @ 300 mls/hr Q12 IVPB Last administered on 12/20/16 08:31; Admin Dose 300 MLS/HR; Start 12/17/16 at 21:00 Insulin Glargine (Lantus) 19 unit DAILY@20 SC Last administered on 12/19/16 20: 43; Admin Dose 19 UNIT; Start 12/18/16 at 20:00 IKE MULLER December 20, 2016 09:43
--- NOTE | 2016-12-20 09:52 | RADRPT ---
Echocardiogram Report ADDENDUM Patient Name: SHAUN MOULTON Gender: Male Date: 1950 Study Date: 17-Dec-2016 Hand Button Splitter: Location: [facility]-[address] Ref. Physician: VICENTE COBIAN Quality: Adequate Procedures: Transthoracic echocardiogram examination. Indications: Endocarditis. Findings Left Ventricle: Mild left ventricular systolic dysfunction. The left ventricular ejection fraction is visually estimated at 40 - 45 %. These segments of the LV are hypokinetic: inferior apex segment, lateral apex and anterior apex segment. Mitral Valve: Moderate mitral annular calcification. Mild mitral regurgitation. Aortic Valve: Severe aortic stenosis. Aortic cusps appear severely calcified. Tricuspid Valve: Tricuspid valve appears mildly thickened. There is mild tricuspid regurgitation. Pulmonic Valve: The pulmonic valve is not well visualized. There is trace pulmonic regurgitation. Conclusions 1.Mild left ventricular systolic dysfunction. The left ventricular ejection fraction is visually estimated at 40-45 %. 2.Moderate mitral annular calcification. Mild mitral regurgitation. No definite vegetations associated with this valvular apparatus. 3.Severe aortic stenosis. Aortic cusps appear severely calcified. No definite vegetations noted on this valvular apparatus. 4.Tricuspid valve appears mildly thickened. There is mild tricuspid regurgitation. Questionable hyperechoic structure on tricuspid valve leaflets which in correct context could be concerning for vegetation but not definite. 5.The pulmonic valve is not well visualized. There is trace pulmonic regurgitation. 6.Consider NIMCO for further evaluation if ongoing concern. Electronically Signed By: Vicente Cobian 24-Dec-2016 18:45:42 -0700 [ADDENDUM] Patient Name: SHAUN MOULTON Study Date: 17-Dec-[id number]
--- NOTE | 2016-12-20 10:50 | CONS ---
Date/Time of Note Date/Time of Note DATE: 12/20/16 TIME: 10:47 Assessment/Plan Assessment/Plan Chief Complaint/Hosp Course IMPRESSION: 1. Atrial fibrillation-currently in SR/ST with PAC's 2. Hypotension-resolved off of pat 3. Abnormal electrocardiogram with inferolateral T-wave inversions. 4. Respiratory failure-s/p intubation and remains 5. Nonhealing toe ulceration. 6. Peripheral arterial disease by arterial ultrasound of the lower extremities this admission. 7. Diabetes mellitus. 8. Fevers. 9. Positive troponin-downtrended 10.Bradycardia-mainly 50's Recc: -Tele -serial ecg -HD for volume removal as necessary -Continue asa -Continue heparin given now PAF/positive troponin -Continue PO amio in attempt to maintain SR -low dose BB as tolerated only following HR closely -Will consider LHC/RHC versus lexiscan when patient improved HD/stable Problems: Consultation Date/Type/Reason Admit Date/Time Dec 02, 2016 at 21:01 Initial Consult Date 12/03/16 Type of Consultation: Cardiology Reason for Consultation PAF/CHF Referring Provider: VIET PARKER MD Exam/Review of Systems Vital Signs Vitals Vital Signs Date Time Temp Pulse Resp B/P Pulse Ox O2 Delivery O2 Flow Rate FiO2 12/20/16 10:00 98 20 122/60 95 Nasal Cannula 12/20/16 08:00 98.1 12/20/16 03:00 50 12/19/16 20:10 3.0 Intake and Output 12/19/16 12/19/16 12/20/16 15:00 23:00 07:00 Intake Total 600 ml Output Total 75 ml 70 ml 58 ml Balance 525 ml -70 ml -58 ml Exam Review of Systems: CONSTITUTIONAL: No fevers, chills. PULMONARY: No sob CARDIOVASCULAR: No chest pain/palpitations GASTROINTESTINAL: No nausea/vomiting. GENITOURINARY: No hematuria/dysuria. MUSCULOSKELETAL: No myagias/arthalgias. PSYCHIATRIC: The patient denies depression. NEUROLOGIC: agitated Constitutional: alert Psych: anxiety Head: normocephalic ENMT: mucosa pink and moist Neck: jvd (9 cm water), supple Respiratory: diminished breath sounds (at bases/B) Cardiovascular: regular rate and rhythm Gastrointestinal: non-tender Musculoskeletal: muscle tone (normal) Extremities: edema (trace/B) Neurological: other (No focal deficits) Results Result Diagram: 12/20/16 0742 12/20/16 0742 Results 24 hrs Laboratory Tests Test 12/19/16 12:05 12/19/16 12:11 12/19/16 18:05 12/19/16 19:20 Troponin I 0.145 *H 0.145 *H Bedside Glucose 201 156 Test 12/19/16 20:39 12/19/16 22:34 12/20/16 01:41 12/20/16 05:33 Bedside Glucose 153 173 170 143 Test 12/20/16 07:42 12/20/16 08:32 White Blood Count 10.1 Red Blood Count 3.06 L Hemoglobin 9.6 L Hematocrit 29.8 L Mean Corpuscular Volume 97.4 Mean Corpuscular Hemoglobin 31.4 Mean Corpuscular Hemoglobin Concent 32.2 Red Cell Distribution Width 13.6 Platelet Count 214 Mean Platelet Volume 9.2 Neutrophils % 80.3 H Lymphocytes % 7.2 L Monocytes % 8.7 Eosinophils % 0.8 Basophils % 0.6 Nucleated Red Blood Cells % 0.0 Neutrophils # 8.1 H Lymphocytes # 0.7 L Monocytes # 0.9 Eosinophils # 0.1 Basophils # 0.1 Nucleated Red Blood Cells # 0.0 Sodium Level 142 Potassium Level 4.3 Chloride Level 104 Carbon Dioxide Level 21 Anion Gap 21 H Blood Urea Nitrogen 59 H Creatinine 8.45 H Glucose Level 163 Calcium Level 8.2 L Bedside Glucose 149 Medications Medications Current Medications Diagnostic Test (Pha) (Accu-Chek) 1 ea 02 XX Last administered on 12/20/16 01: 55; Admin Dose 1 EA; Start 12/03/16 at 02:00 Ondansetron HCl (Zofran Inj) 4 mg Q6H PRN IV NAUSEA AND/OR VOMITING Last administered on 12/13/16 01:13; Admin Dose 4 MG; Start 12/02/16 at 22:30 Miscellaneous Information 1 ea NOTE XX ; Start 12/02/16 at 23:00 Glucose (Glutose) 15 gm Q15M PRN PO DECREASED GLUCOSE; Start 12/02/16 at 23:00 Glucose (Glutose) 22.5 gm Q15M PRN PO DECREASED GLUCOSE; Start 12/02/16 at 23: 00 Dextrose (D50w Syringe) 25 ml Q15M PRN IV DECREASED GLUCOSE Last administered on 12/10/16 05:52; Admin Dose 25 ML; Start 12/02/16 at 23:00 Dextrose (D50w Syringe) 50 ml Q15M PRN IV DECREASED GLUCOSE; Start 12/02/16 at 23:00 Glucagon (Glucagen) 1 mg Q15M PRN IM DECREASED GLUCOSE; Start 12/02/16 at 23:00 Glucose (Glutose) 15 gm Q15M PRN BUCCAL DECREASED GLUCOSE; Start 12/02/16 at 23 :00 Aspirin (Halfprin) 81 mg DAILY PO Last administered on 12/20/16 08:30; Admin Dose 81 MG; Start 12/03/16 at 09:00 Gabapentin (Neurontin) 800 mg TID PO Last administered on 12/08/16 20:33; Admin Dose 800 MG; Start 12/03/16 at 09:00; Status Future Hold Meclizine HCl (Antivert) 25 mg TID PRN PO dizziness Last administered on 10:04; Admin Dose 25 MG; Start 12/02/16 at 23:00 Terazosin HCl (Hytrin) 5 mg HS PO Last administered on 12/07/16 20:28; Admin Dose 5 MG; Start 12/03/16 at 21:00; Status Future Hold Acetaminophen/ Hydrocodone Bitart (Beaver (5/325)) 1 tab Q6H PRN PO PAIN LEVEL 4 -7 Last administered on 12/10/16 21:31; Admin Dose 1 TAB; Start 12/02/16 at 23: 30 Acetaminophen (Tylenol Tab) 650 mg Q6H PRN PO PAIN AND OR ELEVATED TEMP Last administered on 12/18/16 10:44; Admin Dose 650 MG; Start 12/02/16 at 23:30 Docusate Sodium (Colace) 100 mg BID PO Last administered on 12/08/16 20:32; Admin Dose 100 MG; Start 12/03/16 at 09:00; Status Future Hold Zolpidem Tartrate (Ambien) 5 mg HS PRN PO INSOMNIA Last administered on 00:45; Admin Dose 5 MG; Start 12/02/16 at 23:30 Benazepril HCl (Lotensin) 10 mg DAILY PO Last administered on 12/07/16 08:26; Admin Dose 10 MG; Start 12/04/16 at 09:00; Status Future Hold Collagenase (Santyl) 1 applic DAILY TOP Last administered on 12/18/16 08:48; Admin Dose 1 APPLIC; Start 12/07/16 at 16:00 Lorazepam (Ativan) 2 mg Q2 PRN IV AGITATION/ANXIETY Last administered on 03:32; Admin Dose 1 MG; Start 12/09/16 at 09:30 Morphine Sulfate (morphine) 2 mg Q2H PRN IV PAIN Last administered on 12/20/16 03:22; Admin Dose 2 MG; Start 12/09/16 at 09:30 Acetaminophen 650 mg 650 mg Q6H PRN SC ELEVATED TEMPERATURE Last administered on 12/09/16 17:53; Admin Dose 650 MG; Start 12/09/16 at 17:00 Piperacillin Sod/ Tazobactam Sod (Zosyn 2.25gm/ 50ml (Pmx)) 50 ml @ 100 mls/hr Q12 IVPB Last administered on 12/20/16 08:31; Admin Dose 100 MLS/HR; Start at 21:00 Metoprolol Tartrate 5 mg 5 mg Q4H PRN IV HR>100 Last administered on 12/10/16 22:23; Admin Dose 5 MG; Start 12/09/16 at 17:48 Phenylephrine HCl/ Dextrose (Pat-Syneph/D5W) 500 ml @ 75 mls/hr TITRATE IV Last administered on 12/13/16 15:21; Admin Dose 37.5 MLS/HR; Start 12/09/16 at 22:00 Amiodarone HCl (Cordarone) 200 mg BID PO Last administered on 12/18/16 20:23; Admin Dose 200 MG; Start 12/10/16 at 13:00 Hydralazine HCl (Apresoline) 10 mg Q6H PRN IV SBP>150mm hg Last administered on 12/19/16 08:50; Admin Dose 10 MG; Start 12/11/16 at 10:30 Morphine Sulfate (morphine) 2 mg Q2H PRN IV PAIN LEVEL 4-7; Start 12/13/16 at 10 :00 Insulin Aspart NOVOLOG *MODERATE* ALGORI... Q4 SC Last administered on 08:35; Admin Dose 2 UNIT; Start 12/14/16 at 09:00 Caspofungin/ Sodium Chloride (Cancidas/NS) 250 ml @ 250 mls/hr Q24H IVPB Last administered on 12/19/16 12:06; Admin Dose 250 MLS/HR; Start 12/15/16 at 11:00 Metoprolol Tartrate (Lopressor) 12.5 mg BID PO Last administered on 12/18/16 20 :24; Admin Dose 12.5 MG; Start 12/16/16 at 21:00 Pantoprazole 40 mg 40 mg DAILY@06 IV Last administered on 12/20/16 05:28; Admin Dose 40 MG; Start 12/17/16 at 06:00 Linezolid (Zyvox 600mg/D5W (Pmx)) 300 ml @ 300 mls/hr Q12 IVPB Last administered on 12/20/16 08:31; Admin Dose 300 MLS/HR; Start 12/17/16 at 21:00 Insulin Glargine (Lantus) 19 unit DAILY@20 SC Last administered on 12/19/16 20: 43; Admin Dose 19 UNIT; Start 12/18/16 at 20:00 VICENTE LESLIE December 20, 2016 10:50
--- NOTE | 2016-12-20 11:37 | PN ---
Date/Time of Note Date/Time of Note DATE: 12/20/16 TIME: 11:31 Assessment/Plan VTE Prophylaxis VTE Prophylaxis Intervention: SCD's Lines/Catheters IV [facility] Type (from [facility]): PICC Line Central line still needed: Yes Urinary Cath still in place: Yes Reason Cath still needed: urinary retention Assessment/Plan Chief Complaint/Hosp Course Assessment/Plan - Acute respiratory failure secondary to pulmonary edema, resolving. Dr. Alvarez is following from pulmonology standpoint. - Bilateral pleural effusion, this post right sided thoracentesis with removal of 900 cc of fluid. - Acute renal failure, Dr. Remy is following in nephrology consultation. Continue hemodialysis per nephrology. - Acute to subacute right occipital lobe ischemic infarct per CT, Dr Morris is following in neurology consultation. - Paroxysmal atrial fibrillation and positive troponin. Dr. Cobian is following and cardiology consultation. Patient was on heparin drip which is currently on hold due to procedure. - Fungemia, om Caspofungin. Dr. Pascual is following in infection disease consultation. - Diabetic foot ulcer of the left foot, Dr Lin is following in podiatry consultation. - Cellulitis of left foot, 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 and left fourth proximal phalanx per bone scan, continue antibiotics, Continue antibiotics per ID. - Aortic stenosis - Diastolic dysfunction congestive heart failure with preserved ejection fraction of 60%. - DM, Hgb A1c is 8.7, continue Lantus and NovoLog per sliding scale. Further recommendations based on clinical course. Plan of care discussed with Dr. Heredia. Problems: Subjective 24 Hr Interval Summary Free Text/Dictation Patient was extubated over the weekend, currently is awake alert, comfortable on supplemental oxygen via nasal cannula. Patient passed swallow evaluation will start 1800 ADA 2 g sodium low-fat low-cholesterol diet, physical therapy evaluation. Exam/Review of Systems Vital Signs Vitals Vital Signs Date Time Temp Pulse Resp B/P Pulse Ox O2 Delivery O2 Flow Rate FiO2 12/20/16 11:00 100 25 140/77 89 Nasal Cannula 1.0 12/20/16 08:00 98.1 12/20/16 03:00 50 Intake and Output 12/19/16 12/19/16 12/20/16 15:00 23:00 07:00 Intake Total 600 ml Output Total 75 ml 70 ml 58 ml Balance 525 ml -70 ml -58 ml Exam Constitutional: awake, alert Psych: no complaints Head: atraumatic, normocephalic Eyes: nl conjunctiva ENMT: nl external ears & nose Neck: non-tender, supple Respiratory: clear to auscultation, normal air movement Cardiovascular: nl pulses, regular rate and rhythm, systolic murmur Gastrointestinal: non-tender, soft Musculoskeletal: nl extremities to inspection Extremities: normal pulses Neurological: alert *3 Skin: nl turgor, left big toe ulcer. Results Result Diagram: 12/20/16 0742 12/20/16 0742 Results 24 hrs Laboratory Tests Test 12/19/16 12:05 12/19/16 12:11 12/19/16 18:05 12/19/16 19:20 Troponin I 0.145 *H 0.145 *H Bedside Glucose 201 156 Test 12/19/16 20:39 12/19/16 22:34 12/20/16 01:41 12/20/16 05:33 Bedside Glucose 153 173 170 143 Test 12/20/16 07:42 12/20/16 08:32 White Blood Count 10.1 Red Blood Count 3.06 L Hemoglobin 9.6 L Hematocrit 29.8 L Mean Corpuscular Volume 97.4 Mean Corpuscular Hemoglobin 31.4 Mean Corpuscular Hemoglobin Concent 32.2 Red Cell Distribution Width 13.6 Platelet Count 214 Mean Platelet Volume 9.2 Neutrophils % 80.3 H Lymphocytes % 7.2 L Monocytes % 8.7 Eosinophils % 0.8 Basophils % 0.6 Nucleated Red Blood Cells % 0.0 Neutrophils # 8.1 H Lymphocytes # 0.7 L Monocytes # 0.9 Eosinophils # 0.1 Basophils # 0.1 Nucleated Red Blood Cells # 0.0 Sodium Level 142 Potassium Level 4.3 Chloride Level 104 Carbon Dioxide Level 21 Anion Gap 21 H Blood Urea Nitrogen 59 H Creatinine 8.45 H Glucose Level 163 Calcium Level 8.2 L Bedside Glucose 149 Medications Medications Current Medications Diagnostic Test (Pha) (Accu-Chek) 1 ea 02 XX Last administered on 12/20/16 01: 55; Admin Dose 1 EA; Start 12/03/16 at 02:00 Ondansetron HCl (Zofran Inj) 4 mg Q6H PRN IV NAUSEA AND/OR VOMITING Last administered on 12/13/16 01:13; Admin Dose 4 MG; Start 12/02/16 at 22:30 Miscellaneous Information 1 ea NOTE XX ; Start 12/02/16 at 23:00 Glucose (Glutose) 15 gm Q15M PRN PO DECREASED GLUCOSE; Start 12/02/16 at 23:00 Glucose (Glutose) 22.5 gm Q15M PRN PO DECREASED GLUCOSE; Start 12/02/16 at 23: 00 Dextrose (D50w Syringe) 25 ml Q15M PRN IV DECREASED GLUCOSE Last administered on 12/10/16 05:52; Admin Dose 25 ML; Start 12/02/16 at 23:00 Dextrose (D50w Syringe) 50 ml Q15M PRN IV DECREASED GLUCOSE; Start 12/02/16 at 23:00 Glucagon (Glucagen) 1 mg Q15M PRN IM DECREASED GLUCOSE; Start 12/02/16 at 23:00 Glucose (Glutose) 15 gm Q15M PRN BUCCAL DECREASED GLUCOSE; Start 12/02/16 at 23 :00 Aspirin (Halfprin) 81 mg DAILY PO Last administered on 12/20/16 08:30; Admin Dose 81 MG; Start 12/03/16 at 09:00 Gabapentin (Neurontin) 800 mg TID PO Last administered on 12/08/16 20:33; Admin Dose 800 MG; Start 12/03/16 at 09:00; Status Future Hold Meclizine HCl (Antivert) 25 mg TID PRN PO dizziness Last administered on 10:04; Admin Dose 25 MG; Start 12/02/16 at 23:00 Terazosin HCl (Hytrin) 5 mg HS PO Last administered on 12/07/16 20:28; Admin Dose 5 MG; Start 12/03/16 at 21:00; Status Future Hold Acetaminophen/ Hydrocodone Bitart ([place] (5/325)) 1 tab Q6H PRN PO PAIN LEVEL 4 -7 Last administered on 12/10/16 21:31; Admin Dose 1 TAB; Start 12/02/16 at 23: 30 Acetaminophen (Tylenol Tab) 650 mg Q6H PRN PO PAIN AND OR ELEVATED TEMP Last administered on 12/18/16 10:44; Admin Dose 650 MG; Start 12/02/16 at 23:30 Docusate Sodium (Colace) 100 mg BID PO Last administered on 12/08/16 20:32; Admin Dose 100 MG; Start 12/03/16 at 09:00; Status Future Hold Zolpidem Tartrate (Ambien) 5 mg HS PRN PO INSOMNIA Last administered on 00:45; Admin Dose 5 MG; Start 12/02/16 at 23:30 Benazepril HCl (Lotensin) 10 mg DAILY PO Last administered on 12/07/16 08:26; Admin Dose 10 MG; Start 12/04/16 at 09:00; Status Future Hold Collagenase (Santyl) 1 applic DAILY TOP Last administered on 12/18/16 08:48; Admin Dose 1 APPLIC; Start 12/07/16 at 16:00 Lorazepam (Ativan) 2 mg Q2 PRN IV AGITATION/ANXIETY Last administered on 03:32; Admin Dose 1 MG; Start 12/09/16 at 09:30 Morphine Sulfate (morphine) 2 mg Q2H PRN IV PAIN Last administered on 12/20/16 03:22; Admin Dose 2 MG; Start 12/09/16 at 09:30 Acetaminophen 650 mg 650 mg Q6H PRN [place] ELEVATED TEMPERATURE Last administered on 12/09/16 17:53; Admin Dose 650 MG; Start 12/09/16 at 17:00 Piperacillin Sod/ Tazobactam Sod (Zosyn 2.25gm/ 50ml (Pmx)) 50 ml @ 100 mls/hr Q12 IVPB Last administered on 12/20/16 08:31; Admin Dose 100 MLS/HR; Start at 21:00 Metoprolol Tartrate 5 mg 5 mg Q4H PRN IV HR>100 Last administered on 12/10/16 22:23; Admin Dose 5 MG; Start 12/09/16 at 17:48 Phenylephrine HCl/ Dextrose (Fernandez-Syneph/D5W) 500 ml @ 75 mls/hr TITRATE IV Last administered on 12/13/16 15:21; Admin Dose 37.5 MLS/HR; Start 12/09/16 at 22:00 Amiodarone HCl (Cordarone) 200 mg BID PO Last administered on 12/18/16 20:23; Admin Dose 200 MG; Start 12/10/16 at 13:00 Hydralazine HCl (Apresoline) 10 mg Q6H PRN IV SBP>150mm hg Last administered on 12/19/16 08:50; Admin Dose 10 MG; Start 12/11/16 at 10:30 Morphine Sulfate (morphine) 2 mg Q2H PRN IV PAIN LEVEL 4-7; Start 12/13/16 at 10 :00 Insulin Aspart NOVOLOG *MODERATE* ALGORI... Q4 SC Last administered on 08:35; Admin Dose 2 UNIT; Start 12/14/16 at 09:00 Caspofungin/ Sodium Chloride (Cancidas/NS) 250 ml @ 250 mls/hr Q24H IVPB Last administered on 12/19/16 12:06; Admin Dose 250 MLS/HR; Start 12/15/16 at 11:00 Metoprolol Tartrate (Lopressor) 12.5 mg BID PO Last administered on 12/18/16 20 :24; Admin Dose 12.5 MG; Start 12/16/16 at 21:00 Pantoprazole 40 mg 40 mg DAILY@06 IV Last administered on 12/20/16 05:28; Admin Dose 40 MG; Start 12/17/16 at 06:00 Linezolid (Zyvox 600mg/D5W (Pmx)) 300 ml @ 300 mls/hr Q12 IVPB Last administered on 12/20/16 08:31; Admin Dose 300 MLS/HR; Start 12/17/16 at 21:00 Insulin Glargine (Lantus) 19 unit DAILY@20 SC Last administered on 12/19/16 20: 43; Admin Dose 19 UNIT; Start 12/18/16 at 20:00 KIMBERLY NOYOLA December 20, 2016 11:37
[2016-12-20] MEDS: CASPOFUNGIN 50 MG in SOD CHLORIDE 0.9% 250 ML IVPB SCH (12:33)
[2016-12-20] MEDS: ALBUTEROL 0.083% (NEB) 2.5 MG/3 ML AMP INH PRN (14:00)
[2016-12-20] MEDS ORDERED: ALTEPLASE (CATHFLO) 2 MG INJ CATHETER ONE (15:00)
--- NOTE | 2016-12-20 16:22 | CONS ---
Date/Time of Note Date/Time of Note DATE: 12/20/16 TIME: 16:19 Assessment/Plan Assessment/Plan Additional Assessment/Plan 1. Oliguric to Anuric Acute kidney injury 2/2 ATN- started on HD on 12/09/16 for acute fluid overload and Pulmonary edema 2. acute resp failure intubated on ventilator -now extubated on 12/10/2016- then again reintubated on 12/13/2016- now self extubated on 12/18/16 3. Moderate to large right pleural effusion s/p Right thoracentesis 900 cc drained on 12/16/16 2. Left foot diabetic ulcer/cellulitis currently on IV antibiotics, Zosyn and vancomycin. 3. History of diabetes mellitus, insulin-dependent with lower extremity neuropathy. 4. History of hypertension. 5. History of aortic stenosis with diastolic dysfunction with ejection fraction 60% on echocardiogram. PLAN: s/p right thoracentesis 900 cc drained on 12/16/16, Us showed small left pleural effusion making not enough urine, BP stable today - only made 228 cc urine in last 24 hr , will plan for HD today, he can go to telemetry floor after HD today will continue to follow up pt catheter did not work well, will use tPA after HD today, if catheter continues to have problem then we will plan for Permacath placement after talking to family Consultation Date/Type/Reason Admit Date/Time Dec 02, 2016 at 21:01 Initial Consult Date Type of Consultation: NEPHROLOGY Referring Provider: VIET PARKER MD 24 HR Interval Summary Free Text/Dictation only made 228 cc urine, so far since AM only 35 cc urine, pt remained stable hemodynamically Exam/Review of Systems Vital Signs Vitals Vital Signs Date Time Temp Pulse Resp B/P Pulse Ox O2 Delivery O2 Flow Rate FiO2 12/20/16 16:00 95 12/20/16 15:00 25 149/68 95 Nasal Cannula 2.0 12/20/16 12:00 98.0 12/20/16 03:00 50 Intake and Output 12/19/16 12/19/16 12/20/16 15:00 23:00 07:00 Intake Total 600 ml Output Total 75 ml 70 ml 58 ml Balance 525 ml -70 ml -58 ml Exam Constitutional: awake, alert Respiratory: clear to auscultation, normal air movement Cardiovascular: nl pulses, regular rate and rhythm, systolic murmur Gastrointestinal: non-tender, soft Musculoskeletal: nl extremities to inspection Extremities: normal pulses Neurological: alert *3 Skin: nl turgor, left big toe ulcer. Results Result Diagram: 12/20/16 0742 12/20/16 0742 Results 24 hrs Laboratory Tests Test 12/19/16 18:05 12/19/16 19:20 12/19/16 20:39 12/19/16 22:34 Bedside Glucose 156 153 173 Troponin I 0.145 *H Test 12/20/16 01:41 12/20/16 05:33 12/20/16 07:42 12/20/16 08:32 Bedside Glucose 170 143 149 White Blood Count 10.1 Red Blood Count 3.06 L Hemoglobin 9.6 L Hematocrit 29.8 L Mean Corpuscular Volume 97.4 Mean Corpuscular Hemoglobin 31.4 Mean Corpuscular Hemoglobin Concent 32.2 Red Cell Distribution Width 13.6 Platelet Count 214 Mean Platelet Volume 9.2 Neutrophils % 80.3 H Lymphocytes % 7.2 L Monocytes % 8.7 Eosinophils % 0.8 Basophils % 0.6 Nucleated Red Blood Cells % 0.0 Neutrophils # 8.1 H Lymphocytes # 0.7 L Monocytes # 0.9 Eosinophils # 0.1 Basophils # 0.1 Nucleated Red Blood Cells # 0.0 Sodium Level 142 Potassium Level 4.3 Chloride Level 104 Carbon Dioxide Level 21 Anion Gap 21 H Blood Urea Nitrogen 59 H Creatinine 8.45 H Glucose Level 163 Calcium Level 8.2 L Test 12/20/16 13:46 Bedside Glucose 219 Medications Medications Current Medications Diagnostic Test (Pha) (Accu-Chek) 1 ea 02 XX Last administered on 12/20/16 01: 55; Admin Dose 1 EA; Start 12/03/16 at 02:00 Ondansetron HCl (Zofran Inj) 4 mg Q6H PRN IV NAUSEA AND/OR VOMITING Last administered on 12/13/16 01:13; Admin Dose 4 MG; Start 12/02/16 at 22:30 Miscellaneous Information 1 ea NOTE XX ; Start 12/02/16 at 23:00 Glucose (Glutose) 15 gm Q15M PRN PO DECREASED GLUCOSE; Start 12/02/16 at 23:00 Glucose (Glutose) 22.5 gm Q15M PRN PO DECREASED GLUCOSE; Start 12/02/16 at 23: 00 Dextrose (D50w Syringe) 25 ml Q15M PRN IV DECREASED GLUCOSE Last administered on 12/10/16 05:52; Admin Dose 25 ML; Start 12/02/16 at 23:00 Dextrose (D50w Syringe) 50 ml Q15M PRN IV DECREASED GLUCOSE; Start 12/02/16 at 23:00 Glucagon (Glucagen) 1 mg Q15M PRN IM DECREASED GLUCOSE; Start 12/02/16 at 23:00 Glucose (Glutose) 15 gm Q15M PRN BUCCAL DECREASED GLUCOSE; Start 12/02/16 at 23 :00 Aspirin (Halfprin) 81 mg DAILY PO Last administered on 12/20/16 08:30; Admin Dose 81 MG; Start 12/03/16 at 09:00 Gabapentin (Neurontin) 800 mg TID PO Last administered on 12/08/16 20:33; Admin Dose 800 MG; Start 12/03/16 at 09:00; Status Future Hold Meclizine HCl (Antivert) 25 mg TID PRN PO dizziness Last administered on 10:04; Admin Dose 25 MG; Start 12/02/16 at 23:00 Terazosin HCl (Hytrin) 5 mg HS PO Last administered on 12/07/16 20:28; Admin Dose 5 MG; Start 12/03/16 at 21:00; Status Future Hold Acetaminophen/ Hydrocodone Bitart ([place] (5/325)) 1 tab Q6H PRN PO PAIN LEVEL 4 -7 Last administered on 12/10/16 21:31; Admin Dose 1 TAB; Start 12/02/16 at 23: 30 Acetaminophen (Tylenol Tab) 650 mg Q6H PRN PO PAIN AND OR ELEVATED TEMP Last administered on 12/18/16 10:44; Admin Dose 650 MG; Start 12/02/16 at 23:30 Docusate Sodium (Colace) 100 mg BID PO Last administered on 12/08/16 20:32; Admin Dose 100 MG; Start 12/03/16 at 09:00; Status Future Hold Zolpidem Tartrate (Ambien) 5 mg HS PRN PO INSOMNIA Last administered on 00:45; Admin Dose 5 MG; Start 12/02/16 at 23:30 Benazepril HCl (Lotensin) 10 mg DAILY PO Last administered on 12/07/16 08:26; Admin Dose 10 MG; Start 12/04/16 at 09:00; Status Future Hold Collagenase (Santyl) 1 applic DAILY TOP Last administered on 12/18/16 08:48; Admin Dose 1 APPLIC; Start 12/07/16 at 16:00 Lorazepam (Ativan) 2 mg Q2 PRN IV AGITATION/ANXIETY Last administered on 03:32; Admin Dose 1 MG; Start 12/09/16 at 09:30 Morphine Sulfate (morphine) 2 mg Q2H PRN IV PAIN Last administered on 12/20/16 03:22; Admin Dose 2 MG; Start 12/09/16 at 09:30 Acetaminophen 650 mg 650 mg Q6H PRN [place] ELEVATED TEMPERATURE Last administered on 12/09/16 17:53; Admin Dose 650 MG; Start 12/09/16 at 17:00 Piperacillin Sod/ Tazobactam Sod (Zosyn 2.25gm/ 50ml (Pmx)) 50 ml @ 100 mls/hr Q12 IVPB Last administered on 12/20/16 08:31; Admin Dose 100 MLS/HR; Start at 21:00 Metoprolol Tartrate 5 mg 5 mg Q4H PRN IV HR>100 Last administered on 12/10/16 22:23; Admin Dose 5 MG; Start 12/09/16 at 17:48 Phenylephrine HCl/ Dextrose (Fernandez-Syneph/D5W) 500 ml @ 75 mls/hr TITRATE IV Last administered on 12/13/16 15:21; Admin Dose 37.5 MLS/HR; Start 12/09/16 at 22:00 Amiodarone HCl (Cordarone) 200 mg BID PO Last administered on 12/18/16 20:23; Admin Dose 200 MG; Start 12/10/16 at 13:00 Hydralazine HCl (Apresoline) 10 mg Q6H PRN IV SBP>150mm hg Last administered on 12/19/16 08:50; Admin Dose 10 MG; Start 12/11/16 at 10:30 Morphine Sulfate (morphine) 2 mg Q2H PRN IV PAIN LEVEL 4-7; Start 12/13/16 at 10 :00 Insulin Aspart NOVOLOG *MODERATE* ALGORI... Q4 SC Last administered on 13:55; Admin Dose 4 UNIT; Start 12/14/16 at 09:00 Caspofungin/ Sodium Chloride (Cancidas/NS) 250 ml @ 250 mls/hr Q24H IVPB Last administered on 12/20/16 12:33; Admin Dose 250 MLS/HR; Start 12/15/16 at 11:00 Metoprolol Tartrate (Lopressor) 12.5 mg BID PO Last administered on 12/18/16 20 :24; Admin Dose 12.5 MG; Start 12/16/16 at 21:00 Pantoprazole 40 mg 40 mg DAILY@06 IV Last administered on 12/20/16 05:28; Admin Dose 40 MG; Start 12/17/16 at 06:00 Linezolid (Zyvox 600mg/D5W (Pmx)) 300 ml @ 300 mls/hr Q12 IVPB Last administered on 12/20/16 08:31; Admin Dose 300 MLS/HR; Start 12/17/16 at 21:00 Insulin Glargine (Lantus) 19 unit DAILY@20 SC Last administered on 12/19/16 20: 43; Admin Dose 19 UNIT; Start 12/18/16 at 20:00 TASHIA MCGARRY MD December 20, 2016 16:22
--- NOTE | 2016-12-20 16:24 | CONS ---
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 superficial swab grew inna only - right pleural effusion s/p thoracentesis with .9L removed on 12/16/2016; (Note: there is no pleural fluid cx since orders were placed after Right thoracentesis , and Left thoracentesis was not performed on 12/17/16 d/t insufficient fluid) - ARANZA, on HD from 12/09/2016 - A fib; now in SR - troponin+ - severe , EF 45% per TTE 12/17/16 - DM - Hgb A1c 8.7% - HTN associated with DM recommendations: - f/u sensitivity of C. glabrata for flucon, caspo and voriconazole on 12/16/2916 - continue caspofungin (12/14/2016-) - continue renally dosed pip/tazo (12/03/2016) empirically for diabetic foot infection, and sepsis - continue linezolid (12/13/2016-) because the lesion of L 1st toe is purulent, and we want to enhance coverage of skin roni - Ultimately, Pt needs 6 weeks of antibiotics to treat 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 and left fourth proximal phalanx: 12/03/2016 through 01/15/2017 Management d/w ALINA Manuel and Dr. Wilson Critical care time spent: 40 minutes Problems: Consultation Date/Type/Reason Admit Date/Time Dec 02, 2016 at 21:01 Initial Consult Date 12/03/16 Type of Consultation: Infectious Disease Referring Provider: VIET PARKER MD 24 HR Interval Summary Free Text/Dictation Pt had an episode of SOB earlier and is staying overnight in ICU for observation ; HD done and respiratory status improved per d/w ALIAN Manuel. Pt states "I'm okay". ROS limited d/t language barrier. Exam/Review of Systems Vital Signs Vitals Vital Signs Date Time Temp Pulse Resp B/P Pulse Ox O2 Delivery O2 Flow Rate FiO2 12/20/16 16:00 95 12/20/16 16:00 98.1 21 154/85 98 Nasal Cannula 2.0 12/20/16 03:00 50 Intake and Output 12/19/16 12/19/16 12/20/16 15:00 23:00 07:00 Intake Total 600 ml Output Total 75 ml 70 ml 58 ml Balance 525 ml -70 ml -58 ml Exam Constitutional: alert, oriented, well developed Psych: nl mood/affect Head: atraumatic, normocephalic Eyes: nl sclera Neck: supple Respiratory: clear to auscultation (anteriorly), diminished breath sounds ( bibasilar), normal air movement, No wheezing Cardiovascular: regular rate and rhythm, systolic murmur Gastrointestinal: bowel sounds (present), non-tender, soft, No distended Genitourinary - Male: other (Right groin HD catheter with no e/o infection) Extremities: other (LUE PICC with no e/o infection), No clubbing, No cyanosis Neurological: nl mental status, nl speech (Faroese speaking) Skin: nl turgor, other (See nurse note and photos in chart for details; stage 2 sacrococcyx ulcer; Left great toe diabetic ulcer with dressing c/d/i) Results Result Diagram: 12/20/16 0742 12/20/16 0742 Results 24 hrs Laboratory Tests Test 12/19/16 18:05 12/19/16 19:20 12/19/16 20:39 12/19/16 22:34 Bedside Glucose 156 153 173 Troponin I 0.145 *H Test 12/20/16 01:41 12/20/16 05:33 12/20/16 07:42 12/20/16 08:32 Bedside Glucose 170 143 149 White Blood Count 10.1 Red Blood Count 3.06 L Hemoglobin 9.6 L Hematocrit 29.8 L Mean Corpuscular Volume 97.4 Mean Corpuscular Hemoglobin 31.4 Mean Corpuscular Hemoglobin Concent 32.2 Red Cell Distribution Width 13.6 Platelet Count 214 Mean Platelet Volume 9.2 Neutrophils % 80.3 H Lymphocytes % 7.2 L Monocytes % 8.7 Eosinophils % 0.8 Basophils % 0.6 Nucleated Red Blood Cells % 0.0 Neutrophils # 8.1 H Lymphocytes # 0.7 L Monocytes # 0.9 Eosinophils # 0.1 Basophils # 0.1 Nucleated Red Blood Cells # 0.0 Sodium Level 142 Potassium Level 4.3 Chloride Level 104 Carbon Dioxide Level 21 Anion Gap 21 H Blood Urea Nitrogen 59 H Creatinine 8.45 H Glucose Level 163 Calcium Level 8.2 L Test 12/20/16 13:46 Bedside Glucose 219 Medications Medications Current Medications Diagnostic Test (Pha) (Accu-Chek) 1 ea 02 XX Last administered on 12/20/16 01: 55; Admin Dose 1 EA; Start 12/03/16 at 02:00 Ondansetron HCl (Zofran Inj) 4 mg Q6H PRN IV NAUSEA AND/OR VOMITING Last administered on 12/13/16 01:13; Admin Dose 4 MG; Start 12/02/16 at 22:30 Miscellaneous Information 1 ea NOTE XX ; Start 12/02/16 at 23:00 Glucose (Glutose) 15 gm Q15M PRN PO DECREASED GLUCOSE; Start 12/02/16 at 23:00 Glucose (Glutose) 22.5 gm Q15M PRN PO DECREASED GLUCOSE; Start 12/02/16 at 23: 00 Dextrose (D50w Syringe) 25 ml Q15M PRN IV DECREASED GLUCOSE Last administered on 12/10/16 05:52; Admin Dose 25 ML; Start 12/02/16 at 23:00 Dextrose (D50w Syringe) 50 ml Q15M PRN IV DECREASED GLUCOSE; Start 12/02/16 at 23:00 Glucagon (Glucagen) 1 mg Q15M PRN IM DECREASED GLUCOSE; Start 12/02/16 at 23:00 Glucose (Glutose) 15 gm Q15M PRN BUCCAL DECREASED GLUCOSE; Start 12/02/16 at 23 :00 Aspirin (Halfprin) 81 mg DAILY PO Last administered on 12/20/16 08:30; Admin Dose 81 MG; Start 12/03/16 at 09:00 Gabapentin (Neurontin) 800 mg TID PO Last administered on 12/08/16 20:33; Admin Dose 800 MG; Start 12/03/16 at 09:00; Status Future Hold Meclizine HCl (Antivert) 25 mg TID PRN PO dizziness Last administered on 10:04; Admin Dose 25 MG; Start 12/02/16 at 23:00 Terazosin HCl (Hytrin) 5 mg HS PO Last administered on 12/07/16 20:28; Admin Dose 5 MG; Start 12/03/16 at 21:00; Status Future Hold Acetaminophen/ Hydrocodone Bitart ([place] (5/325)) 1 tab Q6H PRN PO PAIN LEVEL 4 -7 Last administered on 12/10/16 21:31; Admin Dose 1 TAB; Start 12/02/16 at 23: 30 Acetaminophen (Tylenol Tab) 650 mg Q6H PRN PO PAIN AND OR ELEVATED TEMP Last administered on 12/18/16 10:44; Admin Dose 650 MG; Start 12/02/16 at 23:30 Docusate Sodium (Colace) 100 mg BID PO Last administered on 12/08/16 20:32; Admin Dose 100 MG; Start 12/03/16 at 09:00; Status Future Hold Zolpidem Tartrate (Ambien) 5 mg HS PRN PO INSOMNIA Last administered on 00:45; Admin Dose 5 MG; Start 12/02/16 at 23:30 Benazepril HCl (Lotensin) 10 mg DAILY PO Last administered on 12/07/16 08:26; Admin Dose 10 MG; Start 12/04/16 at 09:00; Status Future Hold Collagenase (Santyl) 1 applic DAILY TOP Last administered on 12/18/16 08:48; Admin Dose 1 APPLIC; Start 12/07/16 at 16:00 Lorazepam (Ativan) 2 mg Q2 PRN IV AGITATION/ANXIETY Last administered on 03:32; Admin Dose 1 MG; Start 12/09/16 at 09:30 Morphine Sulfate (morphine) 2 mg Q2H PRN IV PAIN Last administered on 12/20/16 03:22; Admin Dose 2 MG; Start 12/09/16 at 09:30 Acetaminophen 650 mg 650 mg Q6H PRN ME ELEVATED TEMPERATURE Last administered on 12/09/16 17:53; Admin Dose 650 MG; Start 12/09/16 at 17:00 Piperacillin Sod/ Tazobactam Sod (Zosyn 2.25gm/ 50ml (Pmx)) 50 ml @ 100 mls/hr Q12 IVPB Last administered on 12/20/16 08:31; Admin Dose 100 MLS/HR; Start at 21:00 Metoprolol Tartrate 5 mg 5 mg Q4H PRN IV HR>100 Last administered on 12/10/16 22:23; Admin Dose 5 MG; Start 12/09/16 at 17:48 Phenylephrine HCl/ Dextrose ([place]ern[place]-Syneph/D5W) 500 ml @ 75 mls/hr TITRATE IV Last administered on 12/13/16 15:21; Admin Dose 37.5 MLS/HR; Start 12/09/16 at 22:00 Amiodarone HCl (Cordarone) 200 mg BID PO Last administered on 12/18/16 20:23; Admin Dose 200 MG; Start 12/10/16 at 13:00 Hydralazine HCl (Apresoline) 10 mg Q6H PRN IV SBP>150mm hg Last administered on 12/19/16 08:50; Admin Dose 10 MG; Start 12/11/16 at 10:30 Morphine Sulfate (morphine) 2 mg Q2H PRN IV PAIN LEVEL 4-7; Start 12/13/16 at 10 :00 Insulin Aspart NOVOLOG *MODERATE* ALGORI... Q4 SC Last administered on 13:55; Admin Dose 4 UNIT; Start 12/14/16 at 09:00 Caspofungin/ Sodium Chloride (Cancidas/NS) 250 ml @ 250 mls/hr Q24H IVPB Last administered on 12/20/16 12:33; Admin Dose 250 MLS/HR; Start 12/15/16 at 11:00 Metoprolol Tartrate (Lopressor) 12.5 mg BID PO Last administered on 12/18/16 20 :24; Admin Dose 12.5 MG; Start 12/16/16 at 21:00 Pantoprazole 40 mg 40 mg DAILY@06 IV Last administered on 12/20/16 05:28; Admin Dose 40 MG; Start 12/17/16 at 06:00 Linezolid (Zyvox 600mg/D5W (Pmx)) 300 ml @ 300 mls/hr Q12 IVPB Last administered on 12/20/16 08:31; Admin Dose 300 MLS/HR; Start 12/17/16 at 21:00 Insulin Glargine (Lantus) 19 unit DAILY@20 SC Last administered on 12/19/16 20: 43; Admin Dose 19 UNIT; Start 12/18/16 at 20:00 Procedures Procedures CXR 12/20/16: Calcified atherosclerosis in the aorta. Stable patchy infiltrates throughout both lungs, possibly combined with small pleural effusions. TTE 12/17/16: 1. Mild left ventricular systolic dysfunction. The left ventricular ejection fraction is visually estimated at 45 %. 2. Moderate mitral annular calcification. Mild mitral regurgitation. No definite vegetations associated with this valvular apparatus. 3. Severe aortic stenosis. Aortic cusps appear severely calcified. No definite vegetations noted on this valvular apparatus. 4. Tricuspid valve appears mildly thickened. There is mild tricuspid regurgitation. Questionable hyperechoic structure on tricuspid valve leaflets which in correct context could be concerning for vegetation but not definite. 5. The pulmonic valve is not well visualized. There is trace pulmonic regurgitation. 6. Consider NIMCO for further evaluation if ongoing concern. YUMIKO ALATORRE NP December 20, 2016 16:24
[2016-12-20] MEDS: METOPROLOL 25 MG TAB PO SCH ×2 (17:41→19:56)
[2016-12-20] MEDS: AMIODARONE 200 MG TAB PO SCH ×2 (17:41→19:56)
[2016-12-20] MEDS: ALBUTEROL/IPRATROPIUM (NEB) 3 ML AMP HHN SCH (20:48)
[2016-12-20] MEDS: INSULIN GLARGINE [LANtus] 3 ML PEN SC SCH (21:28)
[2016-12-21] VITALS (27 sets, daily range): BP systolic 107–166; BP diastolic 49–97; PULSE 56–81; RESP 12–23
[2016-12-21] MEDS: ACCU-CHEK XX SCH (02:21)
[2016-12-21] MEDS: INSULIN ASPART [NOVOLOG] 3 ML PEN SC SCH ×7 (02:21→20:59)
[2016-12-21 05:13] LABS: ADD SCAN DIFF NO
[2016-12-21 05:34] LABS: BASOPHILS % 0.4 % (0.0-2.0); EOSINOPHILS # 0.1 10^3/ul (0.0-0.5); EOSINOPHILS % 1.3 % (0.0-7.0); HEMATOCRIT 29.4 % (42.0-52.0); HEMOGLOBIN 9.5 g/dl (14.0-18.0); LYMPHOCYTES % 10.2 % (15.0-51.0); MEAN CORPUSCULAR HEMOGLOBIN 31.6 pg (29.0-33.0); MEAN CORPUSCULAR HGB CONC 32.3 g/dl (32.0-37.0); MEAN CORPUSCULAR VOLUME 97.7 fl (82.0-101.0); MEAN PLATELET VOLUME 9.4 fl (7.4-10.4); MONOCYTE # 1.1 10^3/ul (0.3-0.9); MONOCYTES % 11.4 % (0.0-11.0); NEUTROPHIL # 6.9 10^3/ul (1.6-7.5); PLATELET COUNT 232 10^3/UL (140-415); RED BLOOD COUNT 3.01 10^6/ul (4.70-6.10); RED CELL DISTRIBUTION WIDTH 13.6 % (11.5-14.5); WHITE BLOOD COUNT 9.3 10^3/ul (4.8-10.8)
[2016-12-21 05:52] LABS: CALCIUM 8.3 mg/dl (8.4-10.2); CREATININE 6.86 mg/dl (0.61-1.24); POTASSIUM 4.1 mmol/L (3.5-5.1)
[2016-12-21] MEDS: PANTOPRAZOLE 40 MG INJ IV SCH (06:44)
--- NOTE | 2016-12-21 08:36 | CONS ---
Date/Time of Note Date/Time of Note DATE: 12/21/16 TIME: 08:33 Assessment/Plan Assessment/Plan Additional Assessment/Plan 1. Atrial fibrillation-currently in SR with PAC's - now in sinus - will monitor - SINUS NOW, with PACs 2. Hypotension-resolved off of pat - better now 3. Abnormal electrocardiogram with inferolateral T-wave inversions. 4. Respiratory failure-s/p intubation and remains - extubated, doing well 5. Nonhealing toe ulceration- on therapy now 6. Peripheral arterial disease by arterial ultrasound of the lower extremities this admission. 7. Diabetes mellitus- medications reviewed 8. Fevers- resolved 9. Positive troponin-downtrended 10.Bradycardia-mainly 50's - no indication for pacer Consultation Date/Type/Reason Admit Date/Time Dec 02, 2016 at 21:01 Initial Consult Date 12/03/16 Type of Consultation: Foot and ankle surgery Referring Provider: VIET PARKER MD 24 HR Interval Summary Free Text/Dictation NO acute events - much better overall - in sinus, no ectopy noted ROS: No fever, no chills, no nausea, no vomiting, no diarrhea/constipation No recent weight changes No chest pain, no PND, no orthopnea No dizziness, blurred vision No thirst, no heat or cold intolerance Exam/Review of Systems Vital Signs Vitals Vital Signs Date Time Temp Pulse Resp B/P Pulse Ox O2 Delivery O2 Flow Rate FiO2 12/21/16 08:00 74 16 138/70 91 Room Air 12/21/16 04:00 99.0 12/21/16 03:23 40 12/20/16 16:00 2.0 Intake and Output 12/20/16 12/20/16 12/21/16 15:00 23:00 07:00 Intake Total 1100 ml 850 ml Output Total 35 ml 5020 ml 60 ml Balance 1065 ml -4170 ml -60 ml Exam General: WN/WD/NAD, AOx 3 HEENT: Unicetric/atraumatic/EOMI (follows commands) NECK: JVD elevated, no thyromegaly Lymph: no lymphadenopathy HEART: regular with no S3, II/ systolic murmur at apex LUNGS: Coarse sounds ABD: soft, NT, ND, +BS : Intact Neuro: non focal SKIN: chronic changes EXT: trace edema Results Result Diagram: 12/21/16 0500 12/21/16 0500 Results 24 hrs Laboratory Tests Test 12/20/16 13:46 12/20/16 17:40 12/20/16 20:14 12/21/16 02:18 Bedside Glucose 219 193 184 203 Test 12/21/16 04:48 12/21/16 05:00 Bedside Glucose 144 White Blood Count 9.3 Red Blood Count 3.01 L Hemoglobin 9.5 L Hematocrit 29.4 L Mean Corpuscular Volume 97.7 Mean Corpuscular Hemoglobin 31.6 Mean Corpuscular Hemoglobin Concent 32.3 Red Cell Distribution Width 13.6 Platelet Count 232 Mean Platelet Volume 9.4 Neutrophils % 75.0 Lymphocytes % 10.2 L Monocytes % 11.4 H Eosinophils % 1.3 Basophils % 0.4 Nucleated Red Blood Cells % 0.0 Neutrophils # 6.9 Lymphocytes # 1.0 Monocytes # 1.1 H Eosinophils # 0.1 Basophils # 0.0 Nucleated Red Blood Cells # 0.0 Sodium Level 138 Potassium Level 4.1 Chloride Level 104 Carbon Dioxide Level 23 Anion Gap 15 Blood Urea Nitrogen 51 H Creatinine 6.86 H Glucose Level 160 Calcium Level 8.3 L Medications Medications Current Medications Diagnostic Test (Pha) (Accu-Chek) 1 ea 02 XX Last administered on 12/21/16 02: 21; Admin Dose 1 EA; Start 12/03/16 at 02:00 Ondansetron HCl (Zofran Inj) 4 mg Q6H PRN IV NAUSEA AND/OR VOMITING Last administered on 12/13/16 01:13; Admin Dose 4 MG; Start 12/02/16 at 22:30 Miscellaneous Information 1 ea NOTE XX ; Start 12/02/16 at 23:00 Glucose (Glutose) 15 gm Q15M PRN PO DECREASED GLUCOSE; Start 12/02/16 at 23:00 Glucose (Glutose) 22.5 gm Q15M PRN PO DECREASED GLUCOSE; Start 12/02/16 at 23: 00 Dextrose (D50w Syringe) 25 ml Q15M PRN IV DECREASED GLUCOSE Last administered on 12/10/16 05:52; Admin Dose 25 ML; Start 12/02/16 at 23:00 Dextrose (D50w Syringe) 50 ml Q15M PRN IV DECREASED GLUCOSE; Start 12/02/16 at 23:00 Glucagon (Glucagen) 1 mg Q15M PRN IM DECREASED GLUCOSE; Start 12/02/16 at 23:00 Glucose (Glutose) 15 gm Q15M PRN BUCCAL DECREASED GLUCOSE; Start 12/02/16 at 23 :00 Aspirin (Halfprin) 81 mg DAILY PO Last administered on 12/20/16 08:30; Admin Dose 81 MG; Start 12/03/16 at 09:00 Gabapentin (Neurontin) 800 mg TID PO Last administered on 12/08/16 20:33; Admin Dose 800 MG; Start 12/03/16 at 09:00; Status Future Hold Meclizine HCl (Antivert) 25 mg TID PRN PO dizziness Last administered on 10:04; Admin Dose 25 MG; Start 12/02/16 at 23:00 Terazosin HCl (Hytrin) 5 mg HS PO Last administered on 12/07/16 20:28; Admin Dose 5 MG; Start 12/03/16 at 21:00; Status Future Hold Acetaminophen/ Hydrocodone Bitart ([place] (5/325)) 1 tab Q6H PRN PO PAIN LEVEL 4 -7 Last administered on 12/10/16 21:31; Admin Dose 1 TAB; Start 12/02/16 at 23: 30 Acetaminophen (Tylenol Tab) 650 mg Q6H PRN PO PAIN AND OR ELEVATED TEMP Last administered on 12/18/16 10:44; Admin Dose 650 MG; Start 12/02/16 at 23:30 Docusate Sodium (Colace) 100 mg BID PO Last administered on 12/08/16 20:32; Admin Dose 100 MG; Start 12/03/16 at 09:00; Status Future Hold Zolpidem Tartrate (Ambien) 5 mg HS PRN PO INSOMNIA Last administered on 00:45; Admin Dose 5 MG; Start 12/02/16 at 23:30 Benazepril HCl (Lotensin) 10 mg DAILY PO Last administered on 12/07/16 08:26; Admin Dose 10 MG; Start 12/04/16 at 09:00; Status Future Hold Collagenase (Santyl) 1 applic DAILY TOP Last administered on 12/18/16 08:48; Admin Dose 1 APPLIC; Start 12/07/16 at 16:00 Lorazepam (Ativan) 2 mg Q2 PRN IV AGITATION/ANXIETY Last administered on 03:32; Admin Dose 1 MG; Start 12/09/16 at 09:30 Morphine Sulfate (morphine) 2 mg Q2H PRN IV PAIN Last administered on 12/20/16 03:22; Admin Dose 2 MG; Start 12/09/16 at 09:30 Acetaminophen 650 mg 650 mg Q6H PRN IN ELEVATED TEMPERATURE Last administered on 12/09/16 17:53; Admin Dose 650 MG; Start 12/09/16 at 17:00 Piperacillin Sod/ Tazobactam Sod (Zosyn 2.25gm/ 50ml (Pmx)) 50 ml @ 100 mls/hr Q12 IVPB Last administered on 12/20/16 21:27; Admin Dose 100 MLS/HR; Start at 21:00 Metoprolol Tartrate 5 mg 5 mg Q4H PRN IV HR>100 Last administered on 12/10/16 22:23; Admin Dose 5 MG; Start 12/09/16 at 17:48 Phenylephrine HCl/ Dextrose (Pat-Syneph/D5W) 500 ml @ 75 mls/hr TITRATE IV Last administered on 12/13/16 15:21; Admin Dose 37.5 MLS/HR; Start 12/09/16 at 22:00 Amiodarone HCl (Cordarone) 200 mg BID PO Last administered on 12/20/16 17:41; Admin Dose 200 MG; Start 12/10/16 at 13:00 Hydralazine HCl (Apresoline) 10 mg Q6H PRN IV SBP>150mm hg Last administered on 12/19/16 08:50; Admin Dose 10 MG; Start 12/11/16 at 10:30 Morphine Sulfate (morphine) 2 mg Q2H PRN IV PAIN LEVEL 4-7; Start 12/13/16 at 10 :00 Insulin Aspart NOVOLOG *MODERATE* ALGORI... Q4 SC Last administered on 05:04; Admin Dose 2 UNIT; Start 12/14/16 at 09:00 Caspofungin/ Sodium Chloride (Cancidas/NS) 250 ml @ 250 mls/hr Q24H IVPB Last administered on 12/20/16 12:33; Admin Dose 250 MLS/HR; Start 12/15/16 at 11:00 Metoprolol Tartrate (Lopressor) 12.5 mg BID PO Last administered on 12/20/16 17 :41; Admin Dose 12.5 MG; Start 12/16/16 at 21:00 Pantoprazole 40 mg 40 mg DAILY@06 IV Last administered on 12/21/16 06:44; Admin Dose 40 MG; Start 12/17/16 at 06:00 Linezolid (Zyvox 600mg/D5W (Pmx)) 300 ml @ 300 mls/hr Q12 IVPB Last administered on 12/20/16 21:26; Admin Dose 300 MLS/HR; Start 12/17/16 at 21:00 Insulin Glargine (Lantus) 19 unit DAILY@20 SC Last administered on 12/20/16 21: 28; Admin Dose 19 UNIT; Start 12/18/16 at 20:00 DAVE NICOLE MD December 21, 2016 08:36
--- NOTE | 2016-12-21 08:41 | PN ---
Date/Time of Note Date/Time of Note DATE: 12/21/16 TIME: 08:40 Assessment/Plan Lines/Catheters IV Catheter Type (from [facility]): PICC Line [place] in Place (from [facility]): Yes Assessment/Plan Chief Complaint/Hosp Course -Bilateral lower extremity atherosclerosis with left first toe plantar ulcer: It seems the patient has developed a first toe plantar ulcer,and diabetic foot infection which may be related to his fall over a week ago. The bilateral lower extremity noninvasive vascular studies demonstrated some infrapopliteal disease as the patient does not have palpable pedal pulses and has been a long time smoker. -ATN:It seems the patient will need permanent catheter and likely eventually fistula creation. Will await for fungemia to resolve prior to a perm catheter placement -Continue with antibiotics -No vascular intervention for now. Will follow the wound progress closely and would recommend an angiogram with possible intervention if poor wound healing arises -Optimize vascular status (BP meds, diet, nutrition, exercise, sugar control, antiplatelets, weight loss). -Discussed smoking cessation with the patient and he understands. -Discussed findings, plan and management with the patient with a certified toucher up and he understands. -Thank you for allowing us to partake in the care of your patient. Please call with any questions. Problems: Subjective 24 Hr Interval Summary Constitutional: improved, no complaints Exam/Review of Systems Vital Signs Vitals Vital Signs Date Time Temp Pulse Resp B/P Pulse Ox O2 Delivery O2 Flow Rate FiO2 12/21/16 08:00 74 16 138/70 91 Room Air 12/21/16 04:00 99.0 12/21/16 03:23 40 12/20/16 16:00 2.0 Intake and Output 12/20/16 12/20/16 12/21/16 15:00 23:00 07:00 Intake Total 1100 ml 850 ml Output Total 35 ml 5020 ml 60 ml Balance 1065 ml -4170 ml -60 ml Exam Free Text/Dictation GENERAL: Alert and oriented x3, PULMONARY: Clear to auscultation bilaterally CARDIOVASCULAR: S1, S2 present ABDOMEN: Soft, nontender, nondistended. Bowel sounds positive. EXTREMITIES: Right lower extremity: Palpable femoral pulse, nonpalpable pedal pulse. Motor , sensory intact. Cap refill 3 to 4 seconds. No ulcers identified. Left lower extremity: Palpable femoral pulse, nonpalpable pedal pulse. Motor and sensory intact. Cap refill 3 to 4 seconds. First toe with erythema and edema improved. Plantar ulcer of 1st metatarsal with callus and erythema improved, No drainage Results Result Diagram: 12/21/16 0500 12/21/16 0500 KAROLINE SHOEMAKER MD December 21, 2016 08:41
[2016-12-21] MEDS: ALBUTEROL/IPRATROPIUM (NEB) 3 ML AMP HHN SCH ×3 (08:54→20:12)
[2016-12-21] MEDS: LINEZOLID 600 MG/D5W (PMX) 300 ML IVPB SCH ×2 (09:17→21:56)
[2016-12-21] MEDS: PIPER-TAZO 2.25 GM (PMX) 50 ML IVPB SCH ×2 (09:17→21:55)
[2016-12-21] MEDS: AMIODARONE 200 MG TAB PO SCH ×2 (09:24→21:02)
[2016-12-21] MEDS: ASPIRIN (EC) 81 MG TAB PO SCH (09:24)
[2016-12-21] MEDS: METOPROLOL 25 MG TAB PO SCH ×2 (09:25→21:03)
[2016-12-21] MEDS: COLLAGENASE 30 GM TUBE TOP SCH (09:26)
--- NOTE | 2016-12-21 11:22 | CONS ---
Date/Time of Note Date/Time of Note DATE: 12/21/16 TIME: 11:20 Assessment/Plan Assessment/Plan Additional Assessment/Plan Assessment recommendations; 1. Patient admitted with cellulitis of left foot then developed respiratory failure due to pulmonary edema and acute renal failure. 2. Patient successfully extubated several days ago with excellent overall clinical status. 3. Renal failure requiring intermittent hemodialysis. 4. Cellulitis involving the left foot. 5. History of hypertension and diabetes. Continue current treatment. Patient can be transferred to the medical floor. We will sign off. Thanks for the referral. Consultation Date/Type/Reason Admit Date/Time Dec 02, 2016 at 21:01 Initial Consult Date 12/03/16 Type of Consultation: Pulmonary/critical care Referring Provider: VIET PARKER MD 24 HR Interval Summary Free Text/Dictation Patient condition is stable. Remains awake alert. Currently sitting in a chair by bedside. Denies any shortness of breath, fever, chest pain, abdominal pain, nausea vomiting. General exam; elderly male, awake alert currently in no distress. Exam/Review of Systems Vital Signs Vitals Vital Signs Date Time Temp Pulse Resp B/P Pulse Ox O2 Delivery O2 Flow Rate FiO2 12/21/16 10:00 77 21 146/64 94 Room Air 12/21/16 09:00 98.2 12/21/16 03:23 40 12/20/16 16:00 2.0 Intake and Output 12/20/16 12/20/16 12/21/16 15:00 23:00 07:00 Intake Total 1100 ml 850 ml Output Total 35 ml 5020 ml 60 ml Balance 1065 ml -4170 ml -60 ml Exam HEENT examination; supple neck, no ED. No lymphadenopathy. Midline trachea. No thyromegaly. Patient is edentulous and wears dentures. Chest examination; clear to auscultation. S1-S2 audible, no murmurs. Regular rhythm. Abdomen examination; soft, nontender, no organomegaly. Bowel sounds audible. Extremity examination; no peripheral edema. There is a dressing applied over the left foot. 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 Results Result Diagram: 12/21/16 0500 12/21/16 0500 Results 24 hrs Laboratory Tests Test 12/20/16 13:46 12/20/16 17:40 12/20/16 20:14 12/21/16 02:18 Bedside Glucose 219 193 184 203 Test 12/21/16 04:48 12/21/16 05:00 12/21/16 09:16 Bedside Glucose 144 137 White Blood Count 9.3 Red Blood Count 3.01 L Hemoglobin 9.5 L Hematocrit 29.4 L Mean Corpuscular Volume 97.7 Mean Corpuscular Hemoglobin 31.6 Mean Corpuscular Hemoglobin Concent 32.3 Red Cell Distribution Width 13.6 Platelet Count 232 Mean Platelet Volume 9.4 Neutrophils % 75.0 Lymphocytes % 10.2 L Monocytes % 11.4 H Eosinophils % 1.3 Basophils % 0.4 Nucleated Red Blood Cells % 0.0 Neutrophils # 6.9 Lymphocytes # 1.0 Monocytes # 1.1 H Eosinophils # 0.1 Basophils # 0.0 Nucleated Red Blood Cells # 0.0 Sodium Level 138 Potassium Level 4.1 Chloride Level 104 Carbon Dioxide Level 23 Anion Gap 15 Blood Urea Nitrogen 51 H Creatinine 6.86 H Glucose Level 160 Calcium Level 8.3 L Medications Medications Current Medications Diagnostic Test (Pha) (Accu-Chek) 1 ea 02 XX Last administered on 12/21/16 02: 21; Admin Dose 1 EA; Start 12/03/16 at 02:00 Ondansetron HCl (Zofran Inj) 4 mg Q6H PRN IV NAUSEA AND/OR VOMITING Last administered on 12/13/16 01:13; Admin Dose 4 MG; Start 12/02/16 at 22:30 Miscellaneous Information 1 ea NOTE XX ; Start 12/02/16 at 23:00 Glucose (Glutose) 15 gm Q15M PRN PO DECREASED GLUCOSE; Start 12/02/16 at 23:00 Glucose (Glutose) 22.5 gm Q15M PRN PO DECREASED GLUCOSE; Start 12/02/16 at 23: 00 Dextrose (D50w Syringe) 25 ml Q15M PRN IV DECREASED GLUCOSE Last administered on 12/10/16 05:52; Admin Dose 25 ML; Start 12/02/16 at 23:00 Dextrose (D50w Syringe) 50 ml Q15M PRN IV DECREASED GLUCOSE; Start 12/02/16 at 23:00 Glucagon (Glucagen) 1 mg Q15M PRN IM DECREASED GLUCOSE; Start 12/02/16 at 23:00 Glucose (Glutose) 15 gm Q15M PRN BUCCAL DECREASED GLUCOSE; Start 12/02/16 at 23 :00 Aspirin (Halfprin) 81 mg DAILY PO Last administered on 12/21/16 09:24; Admin Dose 81 MG; Start 12/03/16 at 09:00 Gabapentin (Neurontin) 800 mg TID PO Last administered on 12/08/16 20:33; Admin Dose 800 MG; Start 12/03/16 at 09:00; Status Future Hold Meclizine HCl (Antivert) 25 mg TID PRN PO dizziness Last administered on 10:04; Admin Dose 25 MG; Start 12/02/16 at 23:00 Terazosin HCl (Hytrin) 5 mg HS PO Last administered on 12/07/16 20:28; Admin Dose 5 MG; Start 12/03/16 at 21:00; Status Future Hold Acetaminophen/ Hydrocodone Bitart ([place] (5/325)) 1 tab Q6H PRN PO PAIN LEVEL 4 -7 Last administered on 12/10/16 21:31; Admin Dose 1 TAB; Start 12/02/16 at 23: 30 Acetaminophen (Tylenol Tab) 650 mg Q6H PRN PO PAIN AND OR ELEVATED TEMP Last administered on 12/18/16 10:44; Admin Dose 650 MG; Start 12/02/16 at 23:30 Docusate Sodium (Colace) 100 mg BID PO Last administered on 12/08/16 20:32; Admin Dose 100 MG; Start 12/03/16 at 09:00; Status Future Hold Zolpidem Tartrate (Ambien) 5 mg HS PRN PO INSOMNIA Last administered on 00:45; Admin Dose 5 MG; Start 12/02/16 at 23:30 Benazepril HCl (Lotensin) 10 mg DAILY PO Last administered on 12/07/16 08:26; Admin Dose 10 MG; Start 12/04/16 at 09:00; Status Future Hold Collagenase (Santyl) 1 applic DAILY TOP Last administered on 12/21/16 09:26; Admin Dose 1 APPLIC; Start 12/07/16 at 16:00 Lorazepam (Ativan) 2 mg Q2 PRN IV AGITATION/ANXIETY Last administered on 03:32; Admin Dose 1 MG; Start 12/09/16 at 09:30 Morphine Sulfate (morphine) 2 mg Q2H PRN IV PAIN Last administered on 12/20/16 03:22; Admin Dose 2 MG; Start 12/09/16 at 09:30 Acetaminophen 650 mg 650 mg Q6H PRN [place] ELEVATED TEMPERATURE Last administered on 12/09/16 17:53; Admin Dose 650 MG; Start 12/09/16 at 17:00 Piperacillin Sod/ Tazobactam Sod (Zosyn 2.25gm/ 50ml (Pmx)) 50 ml @ 100 mls/hr Q12 IVPB Last administered on 12/21/16 09:17; Admin Dose 100 MLS/HR; Start at 21:00 Metoprolol Tartrate (Lopressor) 5 mg Q4H PRN IV HR>100 Last administered on 22:23; Admin Dose 5 MG; Start 12/09/16 at 17:48 Amiodarone HCl (Cordarone) 200 mg BID PO Last administered on 12/21/16 09:24; Admin Dose 200 MG; Start 12/10/16 at 13:00 Hydralazine HCl (Apresoline) 10 mg Q6H PRN IV SBP>150mm hg Last administered on 12/19/16 08:50; Admin Dose 10 MG; Start 12/11/16 at 10:30 Morphine Sulfate (morphine) 2 mg Q2H PRN IV PAIN LEVEL 4-7; Start 12/13/16 at 10 :00 Insulin Aspart NOVOLOG *MODERATE* ALGORI... Q4 SC Last administered on 05:04; Admin Dose 2 UNIT; Start 12/14/16 at 09:00 Caspofungin/ Sodium Chloride (Cancidas/NS) 250 ml @ 250 mls/hr Q24H IVPB Last administered on 12/20/16 12:33; Admin Dose 250 MLS/HR; Start 12/15/16 at 11:00 Metoprolol Tartrate (Lopressor) 12.5 mg BID PO Last administered on 12/21/16 09 :25; Admin Dose 12.5 MG; Start 12/16/16 at 21:00 Pantoprazole 40 mg 40 mg DAILY@06 IV Last administered on 12/21/16 06:44; Admin Dose 40 MG; Start 12/17/16 at 06:00 Linezolid (Zyvox 600mg/D5W (Pmx)) 300 ml @ 300 mls/hr Q12 IVPB Last administered on 12/21/16 09:17; Admin Dose 300 MLS/HR; Start 12/17/16 at 21:00 Insulin Glargine (Lantus) 19 unit DAILY@20 SC Last administered on 12/20/16 21: 28; Admin Dose 19 UNIT; Start 12/18/16 at 20:00 IKE MULLER December 21, 2016 11:22
--- NOTE | 2016-12-21 11:31 | CONS ---
Date/Time of Note Date/Time of Note DATE: 12/21/16 TIME: 11:28 Assessment/Plan Assessment/Plan Additional Assessment/Plan 1. Oliguric to Anuric Acute kidney injury 2/2 ATN- started on HD on 12/09/16 for acute fluid overload and Pulmonary edema 2. acute resp failure intubated on ventilator -now extubated on 12/10/2016- then again reintubated on 12/13/2016- now self extubated on 12/18/16 3. Moderate to large right pleural effusion s/p Right thoracentesis 900 cc drained on 12/16/16 2. Left foot diabetic ulcer/cellulitis currently on IV antibiotics, Zosyn and vancomycin. 3. History of diabetes mellitus, insulin-dependent with lower extremity neuropathy. 4. History of hypertension. 5. History of aortic stenosis with diastolic dysfunction with ejection fraction 60% on echocardiogram. 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 Permacath- discussed with family at bedside will continue to follow up Consultation Date/Type/Reason Admit Date/Time Dec 02, 2016 at 21:01 Initial Consult Date Type of Consultation: NEPHROLOGY Reason for Consultation Acute hyperkalemia, ATN and renal failure did not improve stared on H D during this admission Referring Provider: VIET PARKER MD 24 HR Interval Summary Free Text/Dictation s/p HD yesterday - did not work well, tPA placed, \4.5 L removed Exam/Review of Systems Vital Signs Vitals Vital Signs Date Time Temp Pulse Resp B/P Pulse Ox O2 Delivery O2 Flow Rate FiO2 12/21/16 10:00 77 21 146/64 94 Room Air 12/21/16 09:00 98.2 12/21/16 03:23 40 12/20/16 16:00 2.0 Intake and Output 12/20/16 12/20/16 12/21/16 15:00 23:00 07:00 Intake Total 1100 ml 850 ml Output Total 35 ml 5020 ml 60 ml Balance 1065 ml -4170 ml -60 ml Exam Constitutional: awake, alert Respiratory: clear to auscultation, normal air movement Cardiovascular: nl pulses, regular rate and rhythm, systolic murmur Gastrointestinal: non-tender, soft Musculoskeletal: nl extremities to inspection Extremities: normal pulses Neurological: alert *3 Skin: nl turgor, left big toe ulcer. Results Result Diagram: 12/21/16 0500 12/21/16 0500 Results 24 hrs Laboratory Tests Test 12/20/16 13:46 12/20/16 17:40 12/20/16 20:14 12/21/16 02:18 Bedside Glucose 219 193 184 203 Test 12/21/16 04:48 12/21/16 05:00 12/21/16 09:16 Bedside Glucose 144 137 White Blood Count 9.3 Red Blood Count 3.01 L Hemoglobin 9.5 L Hematocrit 29.4 L Mean Corpuscular Volume 97.7 Mean Corpuscular Hemoglobin 31.6 Mean Corpuscular Hemoglobin Concent 32.3 Red Cell Distribution Width 13.6 Platelet Count 232 Mean Platelet Volume 9.4 Neutrophils % 75.0 Lymphocytes % 10.2 L Monocytes % 11.4 H Eosinophils % 1.3 Basophils % 0.4 Nucleated Red Blood Cells % 0.0 Neutrophils # 6.9 Lymphocytes # 1.0 Monocytes # 1.1 H Eosinophils # 0.1 Basophils # 0.0 Nucleated Red Blood Cells # 0.0 Sodium Level 138 Potassium Level 4.1 Chloride Level 104 Carbon Dioxide Level 23 Anion Gap 15 Blood Urea Nitrogen 51 H Creatinine 6.86 H Glucose Level 160 Calcium Level 8.3 L Medications Medications Current Medications Diagnostic Test (Pha) (Accu-Chek) 1 ea 02 XX Last administered on 12/21/16 02: 21; Admin Dose 1 EA; Start 12/03/16 at 02:00 Ondansetron HCl (Zofran Inj) 4 mg Q6H PRN IV NAUSEA AND/OR VOMITING Last administered on 12/13/16 01:13; Admin Dose 4 MG; Start 12/02/16 at 22:30 Miscellaneous Information 1 ea NOTE XX ; Start 12/02/16 at 23:00 Glucose (Glutose) 15 gm Q15M PRN PO DECREASED GLUCOSE; Start 12/02/16 at 23:00 Glucose (Glutose) 22.5 gm Q15M PRN PO DECREASED GLUCOSE; Start 12/02/16 at 23: 00 Dextrose (D50w Syringe) 25 ml Q15M PRN IV DECREASED GLUCOSE Last administered on 12/10/16 05:52; Admin Dose 25 ML; Start 12/02/16 at 23:00 Dextrose (D50w Syringe) 50 ml Q15M PRN IV DECREASED GLUCOSE; Start 12/02/16 at 23:00 Glucagon (Glucagen) 1 mg Q15M PRN IM DECREASED GLUCOSE; Start 12/02/16 at 23:00 Glucose (Glutose) 15 gm Q15M PRN BUCCAL DECREASED GLUCOSE; Start 12/02/16 at 23 :00 Aspirin (Halfprin) 81 mg DAILY PO Last administered on 12/21/16 09:24; Admin Dose 81 MG; Start 12/03/16 at 09:00 Gabapentin (Neurontin) 800 mg TID PO Last administered on 12/08/16 20:33; Admin Dose 800 MG; Start 12/03/16 at 09:00; Status Future Hold Meclizine HCl (Antivert) 25 mg TID PRN PO dizziness Last administered on 10:04; Admin Dose 25 MG; Start 12/02/16 at 23:00 Terazosin HCl (Hytrin) 5 mg HS PO Last administered on 12/07/16 20:28; Admin Dose 5 MG; Start 12/03/16 at 21:00; Status Future Hold Acetaminophen/ Hydrocodone Bitart ([place] (5/325)) 1 tab Q6H PRN PO PAIN LEVEL 4 -7 Last administered on 12/10/16 21:31; Admin Dose 1 TAB; Start 12/02/16 at 23: 30 Acetaminophen (Tylenol Tab) 650 mg Q6H PRN PO PAIN AND OR ELEVATED TEMP Last administered on 12/18/16 10:44; Admin Dose 650 MG; Start 12/02/16 at 23:30 Docusate Sodium (Colace) 100 mg BID PO Last administered on 12/08/16 20:32; Admin Dose 100 MG; Start 12/03/16 at 09:00; Status Future Hold Zolpidem Tartrate (Ambien) 5 mg HS PRN PO INSOMNIA Last administered on 00:45; Admin Dose 5 MG; Start 12/02/16 at 23:30 Benazepril HCl (Lotensin) 10 mg DAILY PO Last administered on 12/07/16 08:26; Admin Dose 10 MG; Start 12/04/16 at 09:00; Status Future Hold Collagenase (Santyl) 1 applic DAILY TOP Last administered on 12/21/16 09:26; Admin Dose 1 APPLIC; Start 12/07/16 at 16:00 Lorazepam (Ativan) 2 mg Q2 PRN IV AGITATION/ANXIETY Last administered on 03:32; Admin Dose 1 MG; Start 12/09/16 at 09:30 Morphine Sulfate (morphine) 2 mg Q2H PRN IV PAIN Last administered on 12/20/16 03:22; Admin Dose 2 MG; Start 12/09/16 at 09:30 Acetaminophen 650 mg 650 mg Q6H PRN [place] ELEVATED TEMPERATURE Last administered on 12/09/16 17:53; Admin Dose 650 MG; Start 12/09/16 at 17:00 Piperacillin Sod/ Tazobactam Sod (Zosyn 2.25gm/ 50ml (Pmx)) 50 ml @ 100 mls/hr Q12 IVPB Last administered on 12/21/16 09:17; Admin Dose 100 MLS/HR; Start at 21:00 Metoprolol Tartrate (Lopressor) 5 mg Q4H PRN IV HR>100 Last administered on 22:23; Admin Dose 5 MG; Start 12/09/16 at 17:48 Amiodarone HCl (Cordarone) 200 mg BID PO Last administered on 12/21/16 09:24; Admin Dose 200 MG; Start 12/10/16 at 13:00 Hydralazine HCl (Apresoline) 10 mg Q6H PRN IV SBP>150mm hg Last administered on 12/19/16 08:50; Admin Dose 10 MG; Start 12/11/16 at 10:30 Morphine Sulfate (morphine) 2 mg Q2H PRN IV PAIN LEVEL 4-7; Start 12/13/16 at 10 :00 Insulin Aspart NOVOLOG *MODERATE* ALGORI... Q4 SC Last administered on 05:04; Admin Dose 2 UNIT; Start 12/14/16 at 09:00 Caspofungin/ Sodium Chloride (Cancidas/NS) 250 ml @ 250 mls/hr Q24H IVPB Last administered on 12/20/16 12:33; Admin Dose 250 MLS/HR; Start 12/15/16 at 11:00 Metoprolol Tartrate (Lopressor) 12.5 mg BID PO Last administered on 12/21/16 09 :25; Admin Dose 12.5 MG; Start 12/16/16 at 21:00 Pantoprazole 40 mg 40 mg DAILY@06 IV Last administered on 12/21/16 06:44; Admin Dose 40 MG; Start 12/17/16 at 06:00 Linezolid (Zyvox 600mg/D5W (Pmx)) 300 ml @ 300 mls/hr Q12 IVPB Last administered on 12/21/16 09:17; Admin Dose 300 MLS/HR; Start 12/17/16 at 21:00 Insulin Glargine (Lantus) 19 unit DAILY@20 SC Last administered on 12/20/16 21: 28; Admin Dose 19 UNIT; Start 12/18/16 at 20:00 TASHIA MCGARRY MD December 21, 2016 11:31
--- NOTE | 2016-12-21 12:13 | PN ---
Date/Time of Note Date/Time of Note DATE: 12/21/16 TIME: 12:10 Assessment/Plan VTE Prophylaxis VTE Prophylaxis Intervention: SCD's Lines/Catheters IV Catheter Type (from [facility]): PICC Line Central line still needed: Yes Urinary Cath still in place: Yes Reason Cath still needed: urinary retention Assessment/Plan Chief Complaint/Hosp Course Assessment/Plan - Acute respiratory failure secondary to pulmonary edema, resolved. Dr. Alvarez is following from pulmonology standpoint. - Bilateral pleural effusion, this post right sided thoracentesis with removal of 900 cc of fluid. - Acute renal failure, Dr. Remy is following in nephrology consultation. Continue hemodialysis per nephrology. - Acute to subacute right occipital lobe ischemic infarct per CT, Dr Morris is following in neurology consultation. - Paroxysmal atrial fibrillation and positive troponin. Dr. Cobian is following and cardiology consultation. Patient was on heparin drip which is currently on hold due to procedure. - Fungemia, om Caspofungin. Dr. Pascual is following in infection disease consultation. - Diabetic foot ulcer of the left foot, Dr Lin is following in podiatry consultation. - Cellulitis of left foot, 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 and left fourth proximal phalanx per bone scan. Continue antibiotics per ID. - Aortic stenosis - Diastolic dysfunction congestive heart failure with preserved ejection fraction of 60%. - DM, Hgb A1c is 8.7, continue Lantus and NovoLog per sliding scale. Further recommendations based on clinical course. Plan of care discussed with Dr. Heredia. Problems: Subjective 24 Hr Interval Summary Free Text/Dictation Patient is awake alert to name and situation, status post hemodialysis yesterday , pending transfer to telemetry. Exam/Review of Systems Vital Signs Vitals Vital Signs Date Time Temp Pulse Resp B/P Pulse Ox O2 Delivery O2 Flow Rate FiO2 12/21/16 10:00 77 21 146/64 94 Room Air 12/21/16 09:00 98.2 12/21/16 03:23 40 12/20/16 16:00 2.0 Intake and Output 12/20/16 12/20/16 12/21/16 15:00 23:00 07:00 Intake Total 1100 ml 850 ml Output Total 35 ml 5020 ml 60 ml Balance 1065 ml -4170 ml -60 ml Exam Constitutional: awake, alert Psych: no complaints Head: atraumatic, normocephalic Eyes: nl conjunctiva ENMT: nl external ears & nose Neck: non-tender, supple Respiratory: clear to auscultation, normal air movement Cardiovascular: nl pulses, regular rate and rhythm, systolic murmur Gastrointestinal: non-tender, soft Musculoskeletal: nl extremities to inspection Extremities: normal pulses Neurological: alert *3 Skin: nl turgor, left big toe ulcer. Results Result Diagram: 12/21/16 0500 12/21/16 0500 Results 24 hrs Laboratory Tests Test 12/20/16 13:46 12/20/16 17:40 12/20/16 20:14 12/21/16 02:18 Bedside Glucose 219 193 184 203 Test 12/21/16 04:48 12/21/16 05:00 12/21/16 09:16 Bedside Glucose 144 137 White Blood Count 9.3 Red Blood Count 3.01 L Hemoglobin 9.5 L Hematocrit 29.4 L Mean Corpuscular Volume 97.7 Mean Corpuscular Hemoglobin 31.6 Mean Corpuscular Hemoglobin Concent 32.3 Red Cell Distribution Width 13.6 Platelet Count 232 Mean Platelet Volume 9.4 Neutrophils % 75.0 Lymphocytes % 10.2 L Monocytes % 11.4 H Eosinophils % 1.3 Basophils % 0.4 Nucleated Red Blood Cells % 0.0 Neutrophils # 6.9 Lymphocytes # 1.0 Monocytes # 1.1 H Eosinophils # 0.1 Basophils # 0.0 Nucleated Red Blood Cells # 0.0 Sodium Level 138 Potassium Level 4.1 Chloride Level 104 Carbon Dioxide Level 23 Anion Gap 15 Blood Urea Nitrogen 51 H Creatinine 6.86 H Glucose Level 160 Calcium Level 8.3 L Medications Medications Current Medications Diagnostic Test (Pha) (Accu-Chek) 1 ea 02 XX Last administered on 12/21/16 02: 21; Admin Dose 1 EA; Start 12/03/16 at 02:00 Ondansetron HCl (Zofran Inj) 4 mg Q6H PRN IV NAUSEA AND/OR VOMITING Last administered on 12/13/16 01:13; Admin Dose 4 MG; Start 12/02/16 at 22:30 Miscellaneous Information 1 ea NOTE XX ; Start 12/02/16 at 23:00 Glucose (Glutose) 15 gm Q15M PRN PO DECREASED GLUCOSE; Start 12/02/16 at 23:00 Glucose (Glutose) 22.5 gm Q15M PRN PO DECREASED GLUCOSE; Start 12/02/16 at 23: 00 Dextrose (D50w Syringe) 25 ml Q15M PRN IV DECREASED GLUCOSE Last administered on 12/10/16 05:52; Admin Dose 25 ML; Start 12/02/16 at 23:00 Dextrose (D50w Syringe) 50 ml Q15M PRN IV DECREASED GLUCOSE; Start 12/02/16 at 23:00 Glucagon (Glucagen) 1 mg Q15M PRN IM DECREASED GLUCOSE; Start 12/02/16 at 23:00 Glucose (Glutose) 15 gm Q15M PRN BUCCAL DECREASED GLUCOSE; Start 12/02/16 at 23 :00 Aspirin (Halfprin) 81 mg DAILY PO Last administered on 12/21/16 09:24; Admin Dose 81 MG; Start 12/03/16 at 09:00 Gabapentin (Neurontin) 800 mg TID PO Last administered on 12/08/16 20:33; Admin Dose 800 MG; Start 12/03/16 at 09:00; Status Future Hold Meclizine HCl (Antivert) 25 mg TID PRN PO dizziness Last administered on 10:04; Admin Dose 25 MG; Start 12/02/16 at 23:00 Terazosin HCl (Hytrin) 5 mg HS PO Last administered on 12/07/16 20:28; Admin Dose 5 MG; Start 12/03/16 at 21:00; Status Future Hold Acetaminophen/ Hydrocodone Bitart ([place] (5/325)) 1 tab Q6H PRN PO PAIN LEVEL 4 -7 Last administered on 12/10/16 21:31; Admin Dose 1 TAB; Start 12/02/16 at 23: 30 Acetaminophen (Tylenol Tab) 650 mg Q6H PRN PO PAIN AND OR ELEVATED TEMP Last administered on 12/18/16 10:44; Admin Dose 650 MG; Start 12/02/16 at 23:30 Docusate Sodium (Colace) 100 mg BID PO Last administered on 12/08/16 20:32; Admin Dose 100 MG; Start 12/03/16 at 09:00; Status Future Hold Zolpidem Tartrate (Ambien) 5 mg HS PRN PO INSOMNIA Last administered on 00:45; Admin Dose 5 MG; Start 12/02/16 at 23:30 Benazepril HCl (Lotensin) 10 mg DAILY PO Last administered on 12/07/16 08:26; Admin Dose 10 MG; Start 12/04/16 at 09:00; Status Future Hold Collagenase (Santyl) 1 applic DAILY TOP Last administered on 12/21/16 09:26; Admin Dose 1 APPLIC; Start 12/07/16 at 16:00 Lorazepam (Ativan) 2 mg Q2 PRN IV AGITATION/ANXIETY Last administered on 03:32; Admin Dose 1 MG; Start 12/09/16 at 09:30 Morphine Sulfate (morphine) 2 mg Q2H PRN IV PAIN Last administered on 12/20/16 03:22; Admin Dose 2 MG; Start 12/09/16 at 09:30 Acetaminophen 650 mg 650 mg Q6H PRN [place] ELEVATED TEMPERATURE Last administered on 12/09/16 17:53; Admin Dose 650 MG; Start 12/09/16 at 17:00 Piperacillin Sod/ Tazobactam Sod (Zosyn 2.25gm/ 50ml (Pmx)) 50 ml @ 100 mls/hr Q12 IVPB Last administered on 12/21/16 09:17; Admin Dose 100 MLS/HR; Start at 21:00 Metoprolol Tartrate (Lopressor) 5 mg Q4H PRN IV HR>100 Last administered on 22:23; Admin Dose 5 MG; Start 12/09/16 at 17:48 Amiodarone HCl (Cordarone) 200 mg BID PO Last administered on 12/21/16 09:24; Admin Dose 200 MG; Start 12/10/16 at 13:00 Hydralazine HCl (Apresoline) 10 mg Q6H PRN IV SBP>150mm hg Last administered on 12/19/16 08:50; Admin Dose 10 MG; Start 12/11/16 at 10:30 Morphine Sulfate (morphine) 2 mg Q2H PRN IV PAIN LEVEL 4-7; Start 12/13/16 at 10 :00 Insulin Aspart NOVOLOG *MODERATE* ALGORI... Q4 SC Last administered on 05:04; Admin Dose 2 UNIT; Start 12/14/16 at 09:00 Caspofungin/ Sodium Chloride (Cancidas/NS) 250 ml @ 250 mls/hr Q24H IVPB Last administered on 12/20/16 12:33; Admin Dose 250 MLS/HR; Start 12/15/16 at 11:00 Metoprolol Tartrate (Lopressor) 12.5 mg BID PO Last administered on 12/21/16 09 :25; Admin Dose 12.5 MG; Start 12/16/16 at 21:00 Pantoprazole 40 mg 40 mg DAILY@06 IV Last administered on 12/21/16 06:44; Admin Dose 40 MG; Start 12/17/16 at 06:00 Linezolid (Zyvox 600mg/D5W (Pmx)) 300 ml @ 300 mls/hr Q12 IVPB Last administered on 12/21/16 09:17; Admin Dose 300 MLS/HR; Start 12/17/16 at 21:00 Insulin Glargine (Lantus) 19 unit DAILY@20 SC Last administered on 12/20/16 21: 28; Admin Dose 19 UNIT; Start 12/18/16 at 20:00 KIMBERLY NOYOLA December 21, 2016 12:13
[2016-12-21] MEDS: CASPOFUNGIN 50 MG in SOD CHLORIDE 0.9% 250 ML IVPB SCH (12:29)
--- NOTE | 2016-12-21 12:31 | CONS ---
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 superficial swab grew inna only - right pleural effusion s/p thoracentesis with .9L removed on 12/16/2016; (Note: there is no pleural fluid cx since orders were placed after Right thoracentesis , and Left thoracentesis was not performed on 12/17/16 d/t insufficient fluid) - ARANZA, on HD from 12/09/2016 - A fib; now in SR - troponin+ - severe , EF 45% per TTE 12/17/16 - DM - Hgb A1c 8.7% - HTN associated with DM recommendations: - f/u sensitivity of C. glabrata for flucon, caspo and voriconazole on 12/16/2916 - continue caspofungin (12/14/2016-) - continue renally dosed pip/tazo (12/03/2016) empirically for diabetic foot infection, and sepsis - continue linezolid (12/13/2016-) because the lesion of L 1st toe is purulent, and we want to enhance coverage of skin roni - Ultimately, Pt needs 6 weeks of antibiotics to treat 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 and left fourth proximal phalanx: 12/03/2016 through 01/15/2017 Problems: Consultation Date/Type/Reason Admit Date/Time Dec 02, 2016 at 21:01 Type of Consultation: id Referring Provider: VIET PARKER MD 24 HR Interval Summary Free Text/Dictation remains in icu Exam/Review of Systems Vital Signs Vitals Vital Signs Date Time Temp Pulse Resp B/P Pulse Ox O2 Delivery O2 Flow Rate FiO2 12/21/16 12:00 71 12/21/16 10:00 21 146/64 94 Room Air 12/21/16 09:00 98.2 12/21/16 03:23 40 12/20/16 16:00 2.0 Intake and Output 12/20/16 12/20/16 12/21/16 15:00 23:00 07:00 Intake Total 1100 ml 850 ml Output Total 35 ml 5020 ml 60 ml Balance 1065 ml -4170 ml -60 ml Exam Constitutional: alert, oriented, well developed Head: atraumatic, normocephalic Respiratory: diminished breath sounds Cardiovascular: regular rate and rhythm Gastrointestinal: soft Results Result Diagram: 12/21/16 0500 12/21/16 0500 Results 24 hrs Laboratory Tests Test 12/20/16 13:46 12/20/16 17:40 12/20/16 20:14 12/21/16 02:18 Bedside Glucose 219 193 184 203 Test 12/21/16 04:48 12/21/16 05:00 12/21/16 09:16 Bedside Glucose 144 137 White Blood Count 9.3 Red Blood Count 3.01 L Hemoglobin 9.5 L Hematocrit 29.4 L Mean Corpuscular Volume 97.7 Mean Corpuscular Hemoglobin 31.6 Mean Corpuscular Hemoglobin Concent 32.3 Red Cell Distribution Width 13.6 Platelet Count 232 Mean Platelet Volume 9.4 Neutrophils % 75.0 Lymphocytes % 10.2 L Monocytes % 11.4 H Eosinophils % 1.3 Basophils % 0.4 Nucleated Red Blood Cells % 0.0 Neutrophils # 6.9 Lymphocytes # 1.0 Monocytes # 1.1 H Eosinophils # 0.1 Basophils # 0.0 Nucleated Red Blood Cells # 0.0 Sodium Level 138 Potassium Level 4.1 Chloride Level 104 Carbon Dioxide Level 23 Anion Gap 15 Blood Urea Nitrogen 51 H Creatinine 6.86 H Glucose Level 160 Calcium Level 8.3 L Medications Medications Current Medications Diagnostic Test (Pha) (Accu-Chek) 1 ea 02 XX Last administered on 12/21/16 02: 21; Admin Dose 1 EA; Start 12/03/16 at 02:00 Ondansetron HCl (Zofran Inj) 4 mg Q6H PRN IV NAUSEA AND/OR VOMITING Last administered on 12/13/16 01:13; Admin Dose 4 MG; Start 12/02/16 at 22:30 Miscellaneous Information 1 ea NOTE XX ; Start 12/02/16 at 23:00 Glucose (Glutose) 15 gm Q15M PRN PO DECREASED GLUCOSE; Start 12/02/16 at 23:00 Glucose (Glutose) 22.5 gm Q15M PRN PO DECREASED GLUCOSE; Start 12/02/16 at 23: 00 Dextrose (D50w Syringe) 25 ml Q15M PRN IV DECREASED GLUCOSE Last administered on 12/10/16 05:52; Admin Dose 25 ML; Start 12/02/16 at 23:00 Dextrose (D50w Syringe) 50 ml Q15M PRN IV DECREASED GLUCOSE; Start 12/02/16 at 23:00 Glucagon (Glucagen) 1 mg Q15M PRN IM DECREASED GLUCOSE; Start 12/02/16 at 23:00 Glucose (Glutose) 15 gm Q15M PRN BUCCAL DECREASED GLUCOSE; Start 12/02/16 at 23 :00 Aspirin (Halfprin) 81 mg DAILY PO Last administered on 12/21/16 09:24; Admin Dose 81 MG; Start 12/03/16 at 09:00 Gabapentin (Neurontin) 800 mg TID PO Last administered on 12/08/16 20:33; Admin Dose 800 MG; Start 12/03/16 at 09:00; Status Future Hold Meclizine HCl (Antivert) 25 mg TID PRN PO dizziness Last administered on 10:04; Admin Dose 25 MG; Start 12/02/16 at 23:00 Terazosin HCl (Hytrin) 5 mg HS PO Last administered on 12/07/16 20:28; Admin Dose 5 MG; Start 12/03/16 at 21:00; Status Future Hold Acetaminophen/ Hydrocodone Bitart ([place] (5/325)) 1 tab Q6H PRN PO PAIN LEVEL 4 -7 Last administered on 12/10/16 21:31; Admin Dose 1 TAB; Start 12/02/16 at 23: 30 Acetaminophen (Tylenol Tab) 650 mg Q6H PRN PO PAIN AND OR ELEVATED TEMP Last administered on 12/18/16 10:44; Admin Dose 650 MG; Start 12/02/16 at 23:30 Docusate Sodium (Colace) 100 mg BID PO Last administered on 12/08/16 20:32; Admin Dose 100 MG; Start 12/03/16 at 09:00; Status Future Hold Zolpidem Tartrate (Ambien) 5 mg HS PRN PO INSOMNIA Last administered on 00:45; Admin Dose 5 MG; Start 12/02/16 at 23:30 Benazepril HCl (Lotensin) 10 mg DAILY PO Last administered on 12/07/16 08:26; Admin Dose 10 MG; Start 12/04/16 at 09:00; Status Future Hold Collagenase (Santyl) 1 applic DAILY TOP Last administered on 12/21/16 09:26; Admin Dose 1 APPLIC; Start 12/07/16 at 16:00 Lorazepam (Ativan) 2 mg Q2 PRN IV AGITATION/ANXIETY Last administered on 03:32; Admin Dose 1 MG; Start 12/09/16 at 09:30 Morphine Sulfate (morphine) 2 mg Q2H PRN IV PAIN Last administered on 12/20/16 03:22; Admin Dose 2 MG; Start 12/09/16 at 09:30 Acetaminophen 650 mg 650 mg Q6H PRN [place] ELEVATED TEMPERATURE Last administered on 12/09/16 17:53; Admin Dose 650 MG; Start 12/09/16 at 17:00 Piperacillin Sod/ Tazobactam Sod (Zosyn 2.25gm/ 50ml (Pmx)) 50 ml @ 100 mls/hr Q12 IVPB Last administered on 12/21/16 09:17; Admin Dose 100 MLS/HR; Start at 21:00 Metoprolol Tartrate (Lopressor) 5 mg Q4H PRN IV HR>100 Last administered on 22:23; Admin Dose 5 MG; Start 12/09/16 at 17:48 Amiodarone HCl (Cordarone) 200 mg BID PO Last administered on 12/21/16 09:24; Admin Dose 200 MG; Start 12/10/16 at 13:00 Hydralazine HCl (Apresoline) 10 mg Q6H PRN IV SBP>150mm hg Last administered on 12/19/16 08:50; Admin Dose 10 MG; Start 12/11/16 at 10:30 Morphine Sulfate (morphine) 2 mg Q2H PRN IV PAIN LEVEL 4-7; Start 12/13/16 at 10 :00 Insulin Aspart NOVOLOG *MODERATE* ALGORI... Q4 SC Last administered on 05:04; Admin Dose 2 UNIT; Start 12/14/16 at 09:00 Caspofungin/ Sodium Chloride (Cancidas/NS) 250 ml @ 250 mls/hr Q24H IVPB Last administered on 12/21/16 12:29; Admin Dose 250 MLS/HR; Start 12/15/16 at 11:00 Metoprolol Tartrate (Lopressor) 12.5 mg BID PO Last administered on 12/21/16 09 :25; Admin Dose 12.5 MG; Start 12/16/16 at 21:00 Pantoprazole 40 mg 40 mg DAILY@06 IV Last administered on 12/21/16 06:44; Admin Dose 40 MG; Start 12/17/16 at 06:00 Linezolid (Zyvox 600mg/D5W (Pmx)) 300 ml @ 300 mls/hr Q12 IVPB Last administered on 12/21/16 09:17; Admin Dose 300 MLS/HR; Start 12/17/16 at 21:00 Insulin Glargine (Lantus) 19 unit DAILY@20 SC Last administered on 12/20/16 21: 28; Admin Dose 19 UNIT; Start 12/18/16 at 20:00 NIKHIL RAM MD December 21, 2016 12:31
[2016-12-21] MEDS: INSULIN GLARGINE [LANtus] 3 ML PEN SC SCH (20:57)
[2016-12-22] VITALS (22 sets, daily range): BP systolic 119–164; BP diastolic 59–86; PULSE 58–81; RESP 18–21
[2016-12-22] MEDS: ACCU-CHEK XX SCH (01:55)
[2016-12-22] MEDS ORDERED: ACCU-CHEK XX SCH (02:00)
[2016-12-22] MEDS: PANTOPRAZOLE 40 MG INJ IV SCH (05:38)
[2016-12-22] MEDS: INSULIN ASPART [NOVOLOG] 3 ML PEN SC SCH ×7 (08:00→20:44)
[2016-12-22] MEDS: ALBUTEROL/IPRATROPIUM (NEB) 3 ML AMP HHN SCH ×3 (08:20→19:56)
[2016-12-22] MEDS: METOPROLOL 25 MG TAB PO SCH ×2 (09:00→20:50)
[2016-12-22] MEDS: PIPER-TAZO 2.25 GM (PMX) 50 ML IVPB SCH ×2 (09:37→20:45)
[2016-12-22] MEDS: MECLIZINE 25 MG TAB PO PRN (09:37)
[2016-12-22] MEDS: COLLAGENASE 30 GM TUBE TOP SCH (09:37)
[2016-12-22] MEDS: AMIODARONE 200 MG TAB PO SCH ×2 (09:37→20:50)
[2016-12-22] MEDS: ASPIRIN (EC) 81 MG TAB PO SCH (09:37)
[2016-12-22 10:10] LABS: ADD SCAN DIFF NO
[2016-12-22 10:10] LABS: HAAIG REFLEX REFLEX FILED
[2016-12-22 10:11] LABS: BASOPHILS % 0.5 % (0.0-2.0); EOSINOPHILS # 0.2 10^3/ul (0.0-0.5); EOSINOPHILS % 2.1 % (0.0-7.0); HEMATOCRIT 29.5 % (42.0-52.0); HEMOGLOBIN 9.5 g/dl (14.0-18.0); LYMPHOCYTES # 0.7 10^3/ul (0.8-2.9); LYMPHOCYTES % 8.7 % (15.0-51.0); MEAN CORPUSCULAR HEMOGLOBIN 31.1 pg (29.0-33.0); MEAN CORPUSCULAR HGB CONC 32.2 g/dl (32.0-37.0); MEAN CORPUSCULAR VOLUME 96.7 fl (82.0-101.0); MEAN PLATELET VOLUME 9.6 fl (7.4-10.4); MONOCYTE # 0.6 10^3/ul (0.3-0.9); MONOCYTES % 7.8 % (0.0-11.0); NEUTROPHIL # 6.1 10^3/ul (1.6-7.5); NEUTROPHILS % 79.5 % (39.0-77.0); PLATELET COUNT 183 10^3/UL (140-415); RED BLOOD COUNT 3.05 10^6/ul (4.70-6.10); RED CELL DISTRIBUTION WIDTH 13.5 % (11.5-14.5); WHITE BLOOD COUNT 7.7 10^3/ul (4.8-10.8)
--- NOTE | 2016-12-22 10:24 | CONS ---
Date/Time of Note Date/Time of Note DATE: 12/22/16 TIME: 10:22 Assessment/Plan Assessment/Plan Additional Assessment/Plan Assessment recommendations; 1. Patient admitted for left lower extremity cellulitis that developed respiratory failure due to pulmonary edema and acute renal failure, no successfully extubated several days ago with excellent overall clinical status. 2. Continued requirement for hemodialysis Continue current treatment. Consultation Date/Type/Reason Admit Date/Time Dec 02, 2016 at 21:01 Initial Consult Date 12/03/16 Type of Consultation: Pulmonary Referring Provider: VIET PARKER MD 24 HR Interval Summary Free Text/Dictation Patient condition is stable. Denies any shortness of breath, chest pain,. Currently getting hemodialysis at bedside. General exam; elderly male, awake alert currently in no distress. Exam/Review of Systems Vital Signs Vitals Vital Signs Date Time Temp Pulse Resp B/P Pulse Ox O2 Delivery O2 Flow Rate FiO2 12/22/16 10:01 77 12/22/16 09:03 18 97 Nasal Cannula 1.0 12/22/16 08:32 98.3 155/72 12/22/16 01:36 21 Intake and Output 12/21/16 12/21/16 12/22/16 15:00 23:00 07:00 Intake Total 400 ml 240 ml Output Total 100 ml 20 ml 400 ml Balance -100 ml 380 ml -160 ml Exam HEENT exam is; supple neck, no JVD. No lymphadenopathy. Midline trachea. No thyromegaly. Patient is edentulous. Pupils are small bilaterally. Chest examination; clear to auscultation. S1-S2 audible, no murmurs. Regular rhythm. Abdomen examination; soft, nondistended. No organomegaly. Bowel sounds audible. Extremity examination; no peripheral edema. There is a dressing applied over the left foot. [employer] examination; no focal deficit. Results Result Diagram: 12/22/16 1006 12/21/16 0500 Results 24 hrs Laboratory Tests Test 12/21/16 12:34 12/21/16 17:19 12/21/16 17:21 12/21/16 20:55 Bedside Glucose 232 H 349 H 285 H 218 Test 12/22/16 01:53 12/22/16 08:12 12/22/16 09:39 12/22/16 10:06 Bedside Glucose 199 159 Hepatitis B Surface Antigen Pending Hepatitis B Core Total Antibody Pending Hepatitis C Antibody Pending White Blood Count 7.7 Red Blood Count 3.05 L Hemoglobin 9.5 L Hematocrit 29.5 L Mean Corpuscular Volume 96.7 Mean Corpuscular Hemoglobin 31.1 Mean Corpuscular Hemoglobin Concent 32.2 Red Cell Distribution Width 13.5 Platelet Count 183 # Mean Platelet Volume 9.6 Neutrophils % 79.5 H Lymphocytes % 8.7 L Monocytes % 7.8 Eosinophils % 2.1 Basophils % 0.5 Nucleated Red Blood Cells % 0.0 Neutrophils # 6.1 Lymphocytes # 0.7 L Monocytes # 0.6 Eosinophils # 0.2 Basophils # 0.0 Nucleated Red Blood Cells # 0.0 Medications Medications Current Medications Diagnostic Test (Pha) (Accu-Chek) 1 ea 02 XX Last administered on 12/22/16 01: 55; Admin Dose 1 EA; Start 12/03/16 at 02:00 Ondansetron HCl (Zofran Inj) 4 mg Q6H PRN IV NAUSEA AND/OR VOMITING Last administered on 12/13/16 01:13; Admin Dose 4 MG; Start 12/02/16 at 22:30 Miscellaneous Information 1 ea NOTE XX ; Start 12/02/16 at 23:00 Glucose (Glutose) 15 gm Q15M PRN PO DECREASED GLUCOSE; Start 12/02/16 at 23:00 Glucose (Glutose) 22.5 gm Q15M PRN PO DECREASED GLUCOSE; Start 12/02/16 at 23: 00 Dextrose (D50w Syringe) 25 ml Q15M PRN IV DECREASED GLUCOSE Last administered on 12/10/16 05:52; Admin Dose 25 ML; Start 12/02/16 at 23:00 Dextrose (D50w Syringe) 50 ml Q15M PRN IV DECREASED GLUCOSE; Start 12/02/16 at 23:00 Glucagon (Glucagen) 1 mg Q15M PRN IM DECREASED GLUCOSE; Start 12/02/16 at 23:00 Glucose (Glutose) 15 gm Q15M PRN BUCCAL DECREASED GLUCOSE; Start 12/02/16 at 23 :00 Aspirin (Halfprin) 81 mg DAILY PO Last administered on 12/22/16 09:37; Admin Dose 81 MG; Start 12/03/16 at 09:00 Gabapentin (Neurontin) 800 mg TID PO Last administered on 12/08/16 20:33; Admin Dose 800 MG; Start 12/03/16 at 09:00; Status Future Hold Meclizine HCl (Antivert) 25 mg TID PRN PO dizziness Last administered on 09:37; Admin Dose 25 MG; Start 12/02/16 at 23:00 Terazosin HCl (Hytrin) 5 mg HS PO Last administered on 12/07/16 20:28; Admin Dose 5 MG; Start 12/03/16 at 21:00; Status Future Hold Acetaminophen/ Hydrocodone Bitart ([place] (5/325)) 1 tab Q6H PRN PO PAIN LEVEL 4 -7 Last administered on 12/10/16 21:31; Admin Dose 1 TAB; Start 12/02/16 at 23: 30 Acetaminophen (Tylenol Tab) 650 mg Q6H PRN PO PAIN AND OR ELEVATED TEMP Last administered on 12/18/16 10:44; Admin Dose 650 MG; Start 12/02/16 at 23:30 Docusate Sodium (Colace) 100 mg BID PO Last administered on 12/08/16 20:32; Admin Dose 100 MG; Start 12/03/16 at 09:00; Status Future Hold Zolpidem Tartrate (Ambien) 5 mg HS PRN PO INSOMNIA Last administered on 00:45; Admin Dose 5 MG; Start 12/02/16 at 23:30 Benazepril HCl (Lotensin) 10 mg DAILY PO Last administered on 12/07/16 08:26; Admin Dose 10 MG; Start 12/04/16 at 09:00; Status Future Hold Collagenase (Santyl) 1 applic DAILY TOP Last administered on 12/22/16 09:37; Admin Dose 1 APPLIC; Start 12/07/16 at 16:00 Lorazepam (Ativan) 2 mg Q2 PRN IV AGITATION/ANXIETY Last administered on 03:32; Admin Dose 1 MG; Start 12/09/16 at 09:30 Morphine Sulfate (morphine) 2 mg Q2H PRN IV PAIN Last administered on 12/20/16 03:22; Admin Dose 2 MG; Start 12/09/16 at 09:30 Acetaminophen 650 mg 650 mg Q6H PRN [place] ELEVATED TEMPERATURE Last administered on 12/09/16 17:53; Admin Dose 650 MG; Start 12/09/16 at 17:00 Piperacillin Sod/ Tazobactam Sod (Zosyn 2.25gm/ 50ml (Pmx)) 50 ml @ 100 mls/hr Q12 IVPB Last administered on 12/22/16 09:37; Admin Dose 100 MLS/HR; Start at 21:00 Metoprolol Tartrate (Lopressor) 5 mg Q4H PRN IV HR>100 Last administered on 22:23; Admin Dose 5 MG; Start 12/09/16 at 17:48 Amiodarone HCl (Cordarone) 200 mg BID PO Last administered on 12/22/16 09:37; Admin Dose 200 MG; Start 12/10/16 at 13:00 Hydralazine HCl (Apresoline) 10 mg Q6H PRN IV SBP>150mm hg Last administered on 12/19/16 08:50; Admin Dose 10 MG; Start 12/11/16 at 10:30 Morphine Sulfate 2 mg 2 mg Q2H PRN IV PAIN LEVEL 4-7; Start 12/13/16 at 10:00 Caspofungin/ Sodium Chloride (Cancidas/NS) 250 ml @ 250 mls/hr Q24H IVPB Last administered on 12/21/16 12:29; Admin Dose 250 MLS/HR; Start 12/15/16 at 11:00 Metoprolol Tartrate (Lopressor) 12.5 mg BID PO Last administered on 12/21/16 21 :03; Admin Dose 12.5 MG; Start 12/16/16 at 21:00 Pantoprazole 40 mg 40 mg DAILY@06 IV Last administered on 12/22/16 05:38; Admin Dose 40 MG; Start 12/17/16 at 06:00 Linezolid (Zyvox 600mg/D5W (Pmx)) 300 ml @ 300 mls/hr Q12 IVPB Last administered on 12/21/16 21:56; Admin Dose 300 MLS/HR; Start 12/17/16 at 21:00 Insulin Glargine (Lantus) 19 unit DAILY@20 SC Last administered on 12/21/16 20: 57; Admin Dose 19 UNIT; Start 12/18/16 at 20:00 IKE MULLER December 22, 2016 10:24
[2016-12-22 10:32] LABS: CREATININE 6.76 mg/dl (0.61-1.24)
[2016-12-22] MEDS: LINEZOLID 600 MG/D5W (PMX) 300 ML IVPB SCH ×2 (11:01→20:45)
[2016-12-22 11:45] LABS: HEPATITIS B CORE ANTIBODY NEGATIVE (NEGATIVE)
[2016-12-22] MEDS: CASPOFUNGIN 50 MG in SOD CHLORIDE 0.9% 250 ML IVPB SCH (12:05)
--- NOTE | 2016-12-22 13:09 | CONS ---
Date/Time of Note Date/Time of Note DATE: 12/22/16 TIME: 13:07 Assessment/Plan Assessment/Plan Additional Assessment/Plan 1. Oliguric to Anuric Acute kidney injury 2/2 ATN- started on HD on 12/09/16 for acute fluid overload and Pulmonary edema 2. acute resp failure intubated on ventilator -now extubated on 12/10/2016- then again reintubated on 12/13/2016- now self extubated on 12/18/16 3. Moderate to large right pleural effusion s/p Right thoracentesis 900 cc drained on 12/16/16 2. Left foot diabetic ulcer/cellulitis currently on IV antibiotics, Zosyn and vancomycin. 3. History of diabetes mellitus, insulin-dependent with lower extremity neuropathy. 4. History of hypertension. 5. History of aortic stenosis with diastolic dysfunction with ejection fraction 60% on echocardiogram. PLAN: s/p right thoracentesis 900 cc drained on 12/16/16, Us showed small left pleural effusion making not enough urine, had a HD on tuesday- cathter did not work well, tPA placed- will plan for HD today - also discussed with family about Permacath placement case management for HD placement will continue to follow up Consultation Date/Type/Reason Admit Date/Time Dec 02, 2016 at 21:01 Initial Consult Date Type of Consultation: NEPHROLOGY Referring Provider: VIET PARKER MD 24 HR Interval Summary Free Text/Dictation Plan for HD today, on Tuesday tPA was placed in catheter Exam/Review of Systems Vital Signs Vitals Vital Signs Date Time Temp Pulse Resp B/P Pulse Ox O2 Delivery O2 Flow Rate FiO2 12/22/16 12:30 81 12/22/16 11:44 18 164/86 12/22/16 09:03 97 Nasal Cannula 1.0 12/22/16 08:32 98.3 12/22/16 01:36 21 Intake and Output 12/21/16 12/21/16 12/22/16 15:00 23:00 07:00 Intake Total 400 ml 240 ml Output Total 100 ml 20 ml 400 ml Balance -100 ml 380 ml -160 ml Exam Constitutional: awake, alert Respiratory: clear to auscultation, normal air movement Cardiovascular: nl pulses, regular rate and rhythm, systolic murmur Gastrointestinal: non-tender, soft Musculoskeletal: nl extremities to inspection Extremities: normal pulses Neurological: alert *3 Skin: nl turgor, left big toe ulcer. Results Result Diagram: 12/22/16 1006 12/22/16 1006 Results 24 hrs Laboratory Tests Test 12/21/16 17:19 12/21/16 17:21 12/21/16 20:55 12/22/16 01:53 Bedside Glucose 349 H 285 H 218 199 Test 12/22/16 08:12 12/22/16 09:39 12/22/16 10:06 12/22/16 12:28 Bedside Glucose 159 Hepatitis B Surface Antigen NEGATIVE Hepatitis B Core Total Antibody NEGATIVE Hepatitis C Antibody NEGATIVE White Blood Count 7.7 Red Blood Count 3.05 L Hemoglobin 9.5 L Hematocrit 29.5 L Mean Corpuscular Volume 96.7 Mean Corpuscular Hemoglobin 31.1 Mean Corpuscular Hemoglobin Concent 32.2 Red Cell Distribution Width 13.5 Platelet Count 183 # Mean Platelet Volume 9.6 Neutrophils % 79.5 H Lymphocytes % 8.7 L Monocytes % 7.8 Eosinophils % 2.1 Basophils % 0.5 Nucleated Red Blood Cells % 0.0 Neutrophils # 6.1 Lymphocytes # 0.7 L Monocytes # 0.6 Eosinophils # 0.2 Basophils # 0.0 Nucleated Red Blood Cells # 0.0 Sodium Level 139 Potassium Level 4.0 Chloride Level 100 Carbon Dioxide Level 26 Anion Gap 17 H Blood Urea Nitrogen 55 H Creatinine 6.76 H Glucose Level 181 Calcium Level 8.0 L Lab Scanned Report REFERENCE LAB Medications Medications Current Medications Diagnostic Test (Pha) (Accu-Chek) 1 ea 02 XX Last administered on 12/22/16 01: 55; Admin Dose 1 EA; Start 12/03/16 at 02:00 Ondansetron HCl (Zofran Inj) 4 mg Q6H PRN IV NAUSEA AND/OR VOMITING Last administered on 12/13/16 01:13; Admin Dose 4 MG; Start 12/02/16 at 22:30 Miscellaneous Information 1 ea NOTE XX ; Start 12/02/16 at 23:00 Glucose (Glutose) 15 gm Q15M PRN PO DECREASED GLUCOSE; Start 12/02/16 at 23:00 Glucose (Glutose) 22.5 gm Q15M PRN PO DECREASED GLUCOSE; Start 12/02/16 at 23: 00 Dextrose (D50w Syringe) 25 ml Q15M PRN IV DECREASED GLUCOSE Last administered on 12/10/16 05:52; Admin Dose 25 ML; Start 12/02/16 at 23:00 Dextrose (D50w Syringe) 50 ml Q15M PRN IV DECREASED GLUCOSE; Start 12/02/16 at 23:00 Glucagon (Glucagen) 1 mg Q15M PRN IM DECREASED GLUCOSE; Start 12/02/16 at 23:00 Glucose (Glutose) 15 gm Q15M PRN BUCCAL DECREASED GLUCOSE; Start 12/02/16 at 23 :00 Aspirin (Halfprin) 81 mg DAILY PO Last administered on 12/22/16 09:37; Admin Dose 81 MG; Start 12/03/16 at 09:00 Gabapentin (Neurontin) 800 mg TID PO Last administered on 12/08/16 20:33; Admin Dose 800 MG; Start 12/03/16 at 09:00; Status Future Hold Meclizine HCl (Antivert) 25 mg TID PRN PO dizziness Last administered on 09:37; Admin Dose 25 MG; Start 12/02/16 at 23:00 Terazosin HCl (Hytrin) 5 mg HS PO Last administered on 12/07/16 20:28; Admin Dose 5 MG; Start 12/03/16 at 21:00; Status Future Hold Acetaminophen/ Hydrocodone Bitart ([place] (5/325)) 1 tab Q6H PRN PO PAIN LEVEL 4 -7 Last administered on 12/10/16 21:31; Admin Dose 1 TAB; Start 12/02/16 at 23: 30 Acetaminophen (Tylenol Tab) 650 mg Q6H PRN PO PAIN AND OR ELEVATED TEMP Last administered on 12/18/16 10:44; Admin Dose 650 MG; Start 12/02/16 at 23:30 Docusate Sodium (Colace) 100 mg BID PO Last administered on 12/08/16 20:32; Admin Dose 100 MG; Start 12/03/16 at 09:00; Status Future Hold Zolpidem Tartrate (Ambien) 5 mg HS PRN PO INSOMNIA Last administered on 00:45; Admin Dose 5 MG; Start 12/02/16 at 23:30 Benazepril HCl (Lotensin) 10 mg DAILY PO Last administered on 12/07/16 08:26; Admin Dose 10 MG; Start 12/04/16 at 09:00; Status Future Hold Collagenase (Santyl) 1 applic DAILY TOP Last administered on 12/22/16 09:37; Admin Dose 1 APPLIC; Start 12/07/16 at 16:00 Lorazepam (Ativan) 2 mg Q2 PRN IV AGITATION/ANXIETY Last administered on 03:32; Admin Dose 1 MG; Start 12/09/16 at 09:30 Morphine Sulfate (morphine) 2 mg Q2H PRN IV PAIN Last administered on 12/20/16 03:22; Admin Dose 2 MG; Start 12/09/16 at 09:30 Acetaminophen 650 mg 650 mg Q6H PRN [place] ELEVATED TEMPERATURE Last administered on 12/09/16 17:53; Admin Dose 650 MG; Start 12/09/16 at 17:00 Piperacillin Sod/ Tazobactam Sod (Zosyn 2.25gm/ 50ml (Pmx)) 50 ml @ 100 mls/hr Q12 IVPB Last administered on 12/22/16 09:37; Admin Dose 100 MLS/HR; Start at 21:00 Metoprolol Tartrate (Lopressor) 5 mg Q4H PRN IV HR>100 Last administered on 22:23; Admin Dose 5 MG; Start 12/09/16 at 17:48 Amiodarone HCl (Cordarone) 200 mg BID PO Last administered on 12/22/16 09:37; Admin Dose 200 MG; Start 12/10/16 at 13:00 Hydralazine HCl (Apresoline) 10 mg Q6H PRN IV SBP>150mm hg Last administered on 12/19/16 08:50; Admin Dose 10 MG; Start 12/11/16 at 10:30 Morphine Sulfate 2 mg 2 mg Q2H PRN IV PAIN LEVEL 4-7; Start 12/13/16 at 10:00 Caspofungin/ Sodium Chloride (Cancidas/NS) 250 ml @ 250 mls/hr Q24H IVPB Last administered on 12/22/16 12:05; Admin Dose 250 MLS/HR; Start 12/15/16 at 11:00 Metoprolol Tartrate (Lopressor) 12.5 mg BID PO Last administered on 12/21/16 21 :03; Admin Dose 12.5 MG; Start 12/16/16 at 21:00 Pantoprazole 40 mg 40 mg DAILY@06 IV Last administered on 12/22/16 05:38; Admin Dose 40 MG; Start 12/17/16 at 06:00 Linezolid (Zyvox 600mg/D5W (Pmx)) 300 ml @ 300 mls/hr Q12 IVPB Last administered on 12/22/16 11:01; Admin Dose 300 MLS/HR; Start 12/17/16 at 21:00 Insulin Glargine (Lantus) 19 unit DAILY@20 SC Last administered on 12/21/16 20: 57; Admin Dose 19 UNIT; Start 12/18/16 at 20:00 TASHIA MCGARRY MD December 22, 2016 13:09
--- NOTE | 2016-12-22 17:53 | PN ---
Date/Time of Note Date/Time of Note DATE: 12/22/16 TIME: 17:49 Assessment/Plan VTE Prophylaxis VTE Prophylaxis Intervention: SCD's Lines/Catheters IV Catheter Type (from [facility]): PICC Line Central line still needed: Yes Urinary Cath still in place: Yes Reason Cath still needed: urinary retention Assessment/Plan Chief Complaint/Hosp Course Assessment/Plan - Acute respiratory failure secondary to pulmonary edema, resolved. Dr. Alvarez is following from pulmonology standpoint. - Bilateral pleural effusion, this post right sided thoracentesis with removal of 900 cc of fluid. - Acute renal failure, Dr. Remy is following in nephrology consultation. Continue hemodialysis per nephrology. Pending permacath placement by vascular surgery. - Acute to subacute right occipital lobe ischemic infarct per CT, Dr Morris is following in neurology consultation. - Paroxysmal atrial fibrillation and positive troponin. Dr. Cobian is following and cardiology consultation. Patient was on heparin drip which is currently on hold due to procedure. - Fungemia, om Caspofungin. Dr. Pascual is following in infection disease consultation. - Diabetic foot ulcer of the left foot, Dr Lin is following in podiatry consultation. - Cellulitis of left foot, 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 and left fourth proximal phalanx per bone scan. Continue antibiotics per ID. - Aortic stenosis - Diastolic dysfunction congestive heart failure with preserved ejection fraction of 60%. - DM, Hgb A1c is 8.7, continue Lantus and pre-meal NovoLog and NovoLog per sliding scale. Further recommendations based on clinical course. Plan of care discussed with Dr. Heredia. Problems: Subjective 24 Hr Interval Summary Free Text/Dictation Patient denies any chest pain, denies any shortness of breath. Awake alert remains afebrile. Exam/Review of Systems Vital Signs Vitals Vital Signs Date Time Temp Pulse Resp B/P Pulse Ox O2 Delivery O2 Flow Rate FiO2 12/22/16 16:28 1.0 12/22/16 16:25 81 12/22/16 16:05 97.3 18 119/59 96 12/22/16 14:29 Nasal Cannula 12/22/16 01:36 21 Intake and Output 12/21/16 12/21/16 12/22/16 15:00 23:00 07:00 Intake Total 400 ml 240 ml Output Total 100 ml 20 ml 400 ml Balance -100 ml 380 ml -160 ml Exam Constitutional: awake, alert Psych: no complaints Head: atraumatic, normocephalic Eyes: nl conjunctiva ENMT: nl external ears & nose Neck: non-tender, supple Respiratory: clear to auscultation, normal air movement Cardiovascular: nl pulses, regular rate and rhythm, systolic murmur Gastrointestinal: non-tender, soft Musculoskeletal: nl extremities to inspection Extremities: normal pulses Neurological: alert *3 Skin: nl turgor, left big toe ulcer. Results Result Diagram: 12/22/16 1006 12/22/16 1006 Results 24 hrs Laboratory Tests Test 12/21/16 20:55 12/22/16 01:53 12/22/16 08:12 12/22/16 09:39 Bedside Glucose 218 199 159 Hepatitis B Surface Antigen NEGATIVE Hepatitis B Core Total Antibody NEGATIVE Hepatitis C Antibody NEGATIVE Test 12/22/16 10:06 12/22/16 12:28 White Blood Count 7.7 Red Blood Count 3.05 L Hemoglobin 9.5 L Hematocrit 29.5 L Mean Corpuscular Volume 96.7 Mean Corpuscular Hemoglobin 31.1 Mean Corpuscular Hemoglobin Concent 32.2 Red Cell Distribution Width 13.5 Platelet Count 183 # Mean Platelet Volume 9.6 Neutrophils % 79.5 H Lymphocytes % 8.7 L Monocytes % 7.8 Eosinophils % 2.1 Basophils % 0.5 Nucleated Red Blood Cells % 0.0 Neutrophils # 6.1 Lymphocytes # 0.7 L Monocytes # 0.6 Eosinophils # 0.2 Basophils # 0.0 Nucleated Red Blood Cells # 0.0 Sodium Level 139 Potassium Level 4.0 Chloride Level 100 Carbon Dioxide Level 26 Anion Gap 17 H Blood Urea Nitrogen 55 H Creatinine 6.76 H Glucose Level 181 Calcium Level 8.0 L Lab Scanned Report REFERENCE LAB Medications Medications Current Medications Diagnostic Test (Pha) (Accu-Chek) 1 ea 02 XX Last administered on 12/22/16 01: 55; Admin Dose 1 EA; Start 12/03/16 at 02:00 Ondansetron HCl (Zofran Inj) 4 mg Q6H PRN IV NAUSEA AND/OR VOMITING Last administered on 12/13/16 01:13; Admin Dose 4 MG; Start 12/02/16 at 22:30 Miscellaneous Information 1 ea NOTE XX ; Start 12/02/16 at 23:00 Glucose (Glutose) 15 gm Q15M PRN PO DECREASED GLUCOSE; Start 12/02/16 at 23:00 Glucose (Glutose) 22.5 gm Q15M PRN PO DECREASED GLUCOSE; Start 12/02/16 at 23: 00 Dextrose (D50w Syringe) 25 ml Q15M PRN IV DECREASED GLUCOSE Last administered on 12/10/16 05:52; Admin Dose 25 ML; Start 12/02/16 at 23:00 Dextrose (D50w Syringe) 50 ml Q15M PRN IV DECREASED GLUCOSE; Start 12/02/16 at 23:00 Glucagon (Glucagen) 1 mg Q15M PRN IM DECREASED GLUCOSE; Start 12/02/16 at 23:00 Glucose (Glutose) 15 gm Q15M PRN BUCCAL DECREASED GLUCOSE; Start 12/02/16 at 23 :00 Aspirin (Halfprin) 81 mg DAILY PO Last administered on 12/22/16 09:37; Admin Dose 81 MG; Start 12/03/16 at 09:00 Gabapentin (Neurontin) 800 mg TID PO Last administered on 12/08/16 20:33; Admin Dose 800 MG; Start 12/03/16 at 09:00; Status Future Hold Meclizine HCl (Antivert) 25 mg TID PRN PO dizziness Last administered on 09:37; Admin Dose 25 MG; Start 12/02/16 at 23:00 Terazosin HCl (Hytrin) 5 mg HS PO Last administered on 12/07/16 20:28; Admin Dose 5 MG; Start 12/03/16 at 21:00; Status Future Hold Acetaminophen/ Hydrocodone Bitart ([place] (5/325)) 1 tab Q6H PRN PO PAIN LEVEL 4 -7 Last administered on 12/10/16 21:31; Admin Dose 1 TAB; Start 12/02/16 at 23: 30 Acetaminophen (Tylenol Tab) 650 mg Q6H PRN PO PAIN AND OR ELEVATED TEMP Last administered on 12/18/16 10:44; Admin Dose 650 MG; Start 12/02/16 at 23:30 Docusate Sodium (Colace) 100 mg BID PO Last administered on 12/08/16 20:32; Admin Dose 100 MG; Start 12/03/16 at 09:00; Status Future Hold Zolpidem Tartrate (Ambien) 5 mg HS PRN PO INSOMNIA Last administered on 00:45; Admin Dose 5 MG; Start 12/02/16 at 23:30 Benazepril HCl (Lotensin) 10 mg DAILY PO Last administered on 12/07/16 08:26; Admin Dose 10 MG; Start 12/04/16 at 09:00; Status Future Hold Collagenase (Santyl) 1 applic DAILY TOP Last administered on 12/22/16 09:37; Admin Dose 1 APPLIC; Start 12/07/16 at 16:00 Lorazepam (Ativan) 2 mg Q2 PRN IV AGITATION/ANXIETY Last administered on 03:32; Admin Dose 1 MG; Start 12/09/16 at 09:30 Morphine Sulfate (morphine) 2 mg Q2H PRN IV PAIN Last administered on 12/20/16 03:22; Admin Dose 2 MG; Start 12/09/16 at 09:30 Acetaminophen 650 mg 650 mg Q6H PRN NE ELEVATED TEMPERATURE Last administered on 12/09/16 17:53; Admin Dose 650 MG; Start 12/09/16 at 17:00 Piperacillin Sod/ Tazobactam Sod (Zosyn 2.25gm/ 50ml (Pmx)) 50 ml @ 100 mls/hr Q12 IVPB Last administered on 12/22/16 09:37; Admin Dose 100 MLS/HR; Start at 21:00 Metoprolol Tartrate (Lopressor) 5 mg Q4H PRN IV HR>100 Last administered on 22:23; Admin Dose 5 MG; Start 12/09/16 at 17:48 Amiodarone HCl (Cordarone) 200 mg BID PO Last administered on 12/22/16 09:37; Admin Dose 200 MG; Start 12/10/16 at 13:00 Hydralazine HCl (Apresoline) 10 mg Q6H PRN IV SBP>150mm hg Last administered on 12/19/16 08:50; Admin Dose 10 MG; Start 12/11/16 at 10:30 Morphine Sulfate 2 mg 2 mg Q2H PRN IV PAIN LEVEL 4-7; Start 12/13/16 at 10:00 Caspofungin/ Sodium Chloride (Cancidas/NS) 250 ml @ 250 mls/hr Q24H IVPB Last administered on 12/22/16 12:05; Admin Dose 250 MLS/HR; Start 12/15/16 at 11:00 Metoprolol Tartrate 12.5 mg 12.5 mg BID PO Last administered on 12/21/16 21:03 ; Admin Dose 12.5 MG; Start 12/16/16 at 21:00 Linezolid (Zyvox 600mg/D5W (Pmx)) 300 ml @ 300 mls/hr Q12 IVPB Last administered on 12/22/16 11:01; Admin Dose 300 MLS/HR; Start 12/17/16 at 21:00 Insulin Glargine (Lantus) 19 unit DAILY@20 SC Last administered on 12/21/16 20: 57; Admin Dose 19 UNIT; Start 12/18/16 at 20:00 Pantoprazole (Protonix Tab) 40 mg DAILY@06 PO ; Start 12/23/16 at 06:00 KIMBERLY NOYOLA December 22, 2016 17:53
--- NOTE | 2016-12-22 18:26 | CONS ---
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 superficial swab grew inna only - right pleural effusion s/p thoracentesis with .9L removed on 12/16/2016; (Note: there is no pleural fluid cx since orders were placed after Right thoracentesis , and Left thoracentesis was not performed on 12/17/16 d/t insufficient fluid) - ARANZA, on HD from 12/09/2016 - A fib; now in SR - troponin+ - severe , EF 45% per TTE 12/17/16 - DM - Hgb A1c 8.7% - HTN associated with DM recommendations: - f/u sensitivity of C. glabrata for flucon, caspo and voriconazole on 12/16/2916 - continue caspofungin (12/14/2016-) - continue renally dosed pip/tazo (12/03/2016) empirically for diabetic foot infection, and sepsis - continue linezolid (12/13/2016-) because the lesion of L 1st toe is purulent, and we want to enhance coverage of skin roni - Ultimately, Pt needs 6 weeks of antibiotics to treat 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 and left fourth proximal phalanx: 12/03/2016 through 01/15/2017 Problems: Consultation Date/Type/Reason Admit Date/Time Dec 02, 2016 at 21:01 Type of Consultation: id Referring Provider: VIET PARKER MD Exam/Review of Systems Vital Signs Vitals Vital Signs Date Time Temp Pulse Resp B/P Pulse Ox O2 Delivery O2 Flow Rate FiO2 12/22/16 16:28 1.0 12/22/16 16:25 81 12/22/16 16:05 97.3 18 119/59 96 12/22/16 14:29 Nasal Cannula 12/22/16 01:36 21 Intake and Output 12/21/16 12/21/16 12/22/16 15:00 23:00 07:00 Intake Total 400 ml 240 ml Output Total 100 ml 20 ml 400 ml Balance -100 ml 380 ml -160 ml Exam Constitutional: alert, oriented, well developed Psych: nl mood/affect, no complaints Eyes: EOMI, PERRL, nl conjunctiva, nl lids, nl sclera Respiratory: diminished breath sounds Cardiovascular: regular rate and rhythm Gastrointestinal: nl liver, spleen, non-tender, soft Results Result Diagram: 12/22/16 1006 12/22/16 1006 Results 24 hrs Laboratory Tests Test 12/21/16 20:55 12/22/16 01:53 12/22/16 08:12 12/22/16 09:39 Bedside Glucose 218 199 159 Hepatitis B Surface Antigen NEGATIVE Hepatitis B Core Total Antibody NEGATIVE Hepatitis C Antibody NEGATIVE Test 12/22/16 10:06 12/22/16 12:28 12/22/16 17:45 White Blood Count 7.7 Red Blood Count 3.05 L Hemoglobin 9.5 L Hematocrit 29.5 L Mean Corpuscular Volume 96.7 Mean Corpuscular Hemoglobin 31.1 Mean Corpuscular Hemoglobin Concent 32.2 Red Cell Distribution Width 13.5 Platelet Count 183 # Mean Platelet Volume 9.6 Neutrophils % 79.5 H Lymphocytes % 8.7 L Monocytes % 7.8 Eosinophils % 2.1 Basophils % 0.5 Nucleated Red Blood Cells % 0.0 Neutrophils # 6.1 Lymphocytes # 0.7 L Monocytes # 0.6 Eosinophils # 0.2 Basophils # 0.0 Nucleated Red Blood Cells # 0.0 Sodium Level 139 Potassium Level 4.0 Chloride Level 100 Carbon Dioxide Level 26 Anion Gap 17 H Blood Urea Nitrogen 55 H Creatinine 6.76 H Glucose Level 181 Calcium Level 8.0 L Lab Scanned Report REFERENCE LAB Bedside Glucose 227 H Medications Medications Current Medications Diagnostic Test (Pha) (Accu-Chek) 1 ea 02 XX Last administered on 12/22/16t 01: 55; Admin Dose 1 EA; Start 12/03/16 at 02:00 Ondansetron HCl (Zofran Inj) 4 mg Q6H PRN IV NAUSEA AND/OR VOMITING Last administered on 12/13/16 01:13; Admin Dose 4 MG; Start 12/02/16 at 22:30 Miscellaneous Information 1 ea NOTE XX ; Start 12/02/16 at 23:00 Glucose (Glutose) 15 gm Q15M PRN PO DECREASED GLUCOSE; Start 12/02/16 at 23:00 Glucose (Glutose) 22.5 gm Q15M PRN PO DECREASED GLUCOSE; Start 12/02/16 at 23: 00 Dextrose (D50w Syringe) 25 ml Q15M PRN IV DECREASED GLUCOSE Last administered on 12/10/16 05:52; Admin Dose 25 ML; Start 12/02/16 at 23:00 Dextrose (D50w Syringe) 50 ml Q15M PRN IV DECREASED GLUCOSE; Start 12/02/16 at 23:00 Glucagon (Glucagen) 1 mg Q15M PRN IM DECREASED GLUCOSE; Start 12/02/16 at 23:00 Glucose (Glutose) 15 gm Q15M PRN BUCCAL DECREASED GLUCOSE; Start 12/02/16 at 23 :00 Aspirin (Halfprin) 81 mg DAILY PO Last administered on 12/22/16 09:37; Admin Dose 81 MG; Start 12/03/16 at 09:00 Gabapentin (Neurontin) 800 mg TID PO Last administered on 12/08/16 20:33; Admin Dose 800 MG; Start 12/03/16 at 09:00; Status Future Hold Meclizine HCl (Antivert) 25 mg TID PRN PO dizziness Last administered on 09:37; Admin Dose 25 MG; Start 12/02/16 at 23:00 Terazosin HCl (Hytrin) 5 mg HS PO Last administered on 12/07/16 20:28; Admin Dose 5 MG; Start 12/03/16 at 21:00; Status Future Hold Acetaminophen/ Hydrocodone Bitart ([place] (5/325)) 1 tab Q6H PRN PO PAIN LEVEL 4 -7 Last administered on 12/10/16 21:31; Admin Dose 1 TAB; Start 12/02/16 at 23: 30 Acetaminophen (Tylenol Tab) 650 mg Q6H PRN PO PAIN AND OR ELEVATED TEMP Last administered on 12/18/16 10:44; Admin Dose 650 MG; Start 12/02/16 at 23:30 Docusate Sodium (Colace) 100 mg BID PO Last administered on 12/08/16 20:32; Admin Dose 100 MG; Start 12/03/16 at 09:00; Status Future Hold Zolpidem Tartrate (Ambien) 5 mg HS PRN PO INSOMNIA Last administered on 00:45; Admin Dose 5 MG; Start 12/02/16 at 23:30 Benazepril HCl (Lotensin) 10 mg DAILY PO Last administered on 12/07/16 08:26; Admin Dose 10 MG; Start 12/04/16 at 09:00; Status Future Hold Collagenase (Santyl) 1 applic DAILY TOP Last administered on 12/22/16 09:37; Admin Dose 1 APPLIC; Start 12/07/16 at 16:00 Lorazepam (Ativan) 2 mg Q2 PRN IV AGITATION/ANXIETY Last administered on 03:32; Admin Dose 1 MG; Start 12/09/16 at 09:30 Morphine Sulfate (morphine) 2 mg Q2H PRN IV PAIN Last administered on 12/20/16 03:22; Admin Dose 2 MG; Start 12/09/16 at 09:30 Acetaminophen 650 mg 650 mg Q6H PRN SC ELEVATED TEMPERATURE Last administered on 12/09/16 17:53; Admin Dose 650 MG; Start 12/09/16 at 17:00 Piperacillin Sod/ Tazobactam Sod (Zosyn 2.25gm/ 50ml (Pmx)) 50 ml @ 100 mls/hr Q12 IVPB Last administered on 12/22/16 09:37; Admin Dose 100 MLS/HR; Start at 21:00 Metoprolol Tartrate (Lopressor) 5 mg Q4H PRN IV HR>100 Last administered on 22:23; Admin Dose 5 MG; Start 12/09/16 at 17:48 Amiodarone HCl (Cordarone) 200 mg BID PO Last administered on 12/22/16 09:37; Admin Dose 200 MG; Start 12/10/16 at 13:00 Hydralazine HCl (Apresoline) 10 mg Q6H PRN IV SBP>150mm hg Last administered on 12/19/16 08:50; Admin Dose 10 MG; Start 12/11/16 at 10:30 Morphine Sulfate 2 mg 2 mg Q2H PRN IV PAIN LEVEL 4-7; Start 12/13/16 at 10:00 Caspofungin/ Sodium Chloride (Cancidas/NS) 250 ml @ 250 mls/hr Q24H IVPB Last administered on 12/22/16 12:05; Admin Dose 250 MLS/HR; Start 12/15/16 at 11:00 Metoprolol Tartrate 12.5 mg 12.5 mg BID PO Last administered on 12/21/16 21:03 ; Admin Dose 12.5 MG; Start 12/16/16 at 21:00 Linezolid (Zyvox 600mg/D5W (Pmx)) 300 ml @ 300 mls/hr Q12 IVPB Last administered on 12/22/16 11:01; Admin Dose 300 MLS/HR; Start 12/17/16 at 21:00 Insulin Glargine (Lantus) 19 unit DAILY@20 SC Last administered on 12/21/16 20: 57; Admin Dose 19 UNIT; Start 12/18/16 at 20:00 Pantoprazole (Protonix Tab) 40 mg DAILY@06 PO ; Start 12/23/16 at 06:00 NIKHIL RAM MD December 22, 2016 18:26
[2016-12-22] MEDS: INSULIN GLARGINE [LANtus] 3 ML PEN SC SCH (20:43)
[2016-12-22] MEDS: LORAZEPAM 2 MG INJ IV PRN (21:54)
--- NOTE | 2016-12-22 23:07 | PN ---
Date/Time of Note Date/Time of Note DATE: 12/22/16 TIME: 23:07 Assessment/Plan Lines/Catheters IV Catheter Type (from Nrsg): PICC Line Molina in Place (from Nrsg): Yes Assessment/Plan Problems: (1) Cellulitis of left foot Status: Acute (2) Non-pressure chronic ulcer of other part of left foot with fat layer exposed (3) Peripheral vascular disease (4) Diabetes, polyneuropathy Assessment/Plan Condition is improved. Continue daily dressing change. Continue nonweightbearing on the left foot. Patient will be followed in-house. Subjective 24 Hr Interval Summary Patient was seen at bedside. Patient is in no acute distress. Patient reports no new adverse events. Patient denies fever, chills, nausea or vomiting. Patient denies pain. Patient denies recent trauma. Patient reports bandages are being changed as directed. Patient does not report any new problems. Exam/Review of Systems Vital Signs Vitals Vital Signs Date Time Temp Pulse Resp B/P Pulse Ox O2 Delivery O2 Flow Rate FiO2 12/27/16 13:25 73 98 30 12/27/16 12:02 98.4 18 127/67 12/26/16 19:12 2.0 12/26/16 19:12 Nasal Cannula Intake and Output 12/26/16 12/26/16 12/27/16 15:00 23:00 07:00 Intake Total 700 ml 530 ml 200 ml Output Total 2400 ml 200 ml Balance -1700 ml 530 ml 0 ml Exam Free Text/Dictation General appearance: Patient appears to be in no acute distress laying supine in bed Vascular exam: Palpable dorsalis pedis and posterior tibial pulses bilateral feet. No edema of bilateral lower legs Neurological exam: Decreased protective sensation to sharp, dull, vibratory and temperature stimuli bilaterally. Normal deep tendon reflexes bilaterally. Negative Tinel sign Dermatological exam: Open wound plantar left hallux improved. Left hallux is also improved there is no erythema no edema noted. No other open wound present Musculoskeletal exam: Contracted toes with planus foot type Results Result Diagram: 12/27/16 0547 12/27/16 0547 YEIMI LIZARRAGA DPM December 22, 2016 23:07
--- NOTE | 2016-12-22 23:33 | RADRPT ---
PROCEDURE: XR Chest. CLINICAL INDICATION: Follow-up dyspnea as the patient pulled out PICC line TECHNIQUE: AP Portable chest. COMPARISON: 12/20/2016 chest x-ray FINDINGS: The soft tissues and bones are remarkable for a healed right midclavicular fracture deformity, thora cic spondylosis, degenerative changes the bilateral glenohumeral and acromioclavicular joints. The left PICC line previously noted has been removed. Low lung volumes are present with by lateral basi lar greater than upper lobe infiltrates present. Obscuration of the bilateral hemidiaphragms are ag ain noted compatible with small to moderate bilateral pleural effusions. Mild cardiomegaly is prese nt with vascular calcifications of the thoracic aorta. No pneumothorax is present. IMPRESSION: 1. Interval removal of left PICC catheter. 2. Bibasilar greater than bilateral upper lobe consolidation with small to moderate bilateral pleur al effusions. 3. Mild cardiomegaly and atherosclerotic vascular disease 4. Thoracic spondylosis, healed right midclavicular fracture and degenerative changes of the bilate ral acromioclavicular and glenohumeral joints. RPTAT: HDC .Suzanne Browne MD, MD Date Time Electronically viewed and signed by .Suzanne Browne MD, on 12/22/2016 23:32 .C/
[2016-12-23] VITALS (15 sets, daily range): BP systolic 94–147; BP diastolic 42–64; PULSE 60–83; RESP 17–23
[2016-12-23] MEDS: ACCU-CHEK XX SCH (01:50)
[2016-12-23] MEDS: PANTOPRAZOLE (EC) 40 MG TAB PO SCH (06:01)
[2016-12-23] MEDS: ALBUTEROL/IPRATROPIUM (NEB) 3 ML AMP HHN SCH ×3 (08:00→20:58)
[2016-12-23 08:38] LABS: ADD SCAN DIFF NO
[2016-12-23 08:46] LABS: BASOPHILS % 0.4 % (0.0-2.0); EOSINOPHILS # 0.2 10^3/ul (0.0-0.5); EOSINOPHILS % 1.6 % (0.0-7.0); HEMATOCRIT 28.9 % (42.0-52.0); HEMOGLOBIN 9.3 g/dl (14.0-18.0); LYMPHOCYTES # 0.6 10^3/ul (0.8-2.9); LYMPHOCYTES % 6.3 % (15.0-51.0); MEAN CORPUSCULAR HEMOGLOBIN 31.1 pg (29.0-33.0); MEAN CORPUSCULAR HGB CONC 32.2 g/dl (32.0-37.0); MEAN CORPUSCULAR VOLUME 96.7 fl (82.0-101.0); MEAN PLATELET VOLUME 9.5 fl (7.4-10.4); MONOCYTE # 0.9 10^3/ul (0.3-0.9); MONOCYTES % 9.2 % (0.0-11.0); NEUTROPHIL # 8.3 10^3/ul (1.6-7.5); NEUTROPHILS % 81.2 % (39.0-77.0); PLATELET COUNT 208 10^3/UL (140-415); RED BLOOD COUNT 2.99 10^6/ul (4.70-6.10); RED CELL DISTRIBUTION WIDTH 13.4 % (11.5-14.5); WHITE BLOOD COUNT 10.2 10^3/ul (4.8-10.8)
[2016-12-23] MEDS: COLLAGENASE 30 GM TUBE TOP SCH (09:00)
[2016-12-23] MEDS: INSULIN ASPART [NOVOLOG] 3 ML PEN SC SCH ×7 (09:09→20:36)
[2016-12-23 09:10] LABS: POTASSIUM 3.5 mmol/L (3.5-5.1)
[2016-12-23] MEDS: METOPROLOL 25 MG TAB PO SCH ×2 (09:10→20:31)
[2016-12-23] MEDS: ASPIRIN (EC) 81 MG TAB PO SCH (09:11)
[2016-12-23] MEDS: AMIODARONE 200 MG TAB PO SCH ×2 (09:11→20:31)
[2016-12-23 09:13] LABS: CREATININE 6.85 mg/dl (0.61-1.24)
[2016-12-23] MEDS: PIPER-TAZO 2.25 GM (PMX) 50 ML IVPB SCH ×2 (09:13→20:32)
[2016-12-23 09:14] LABS: CALCIUM 7.8 mg/dl (8.4-10.2)
[2016-12-23] MEDS: LINEZOLID 600 MG/D5W (PMX) 300 ML IVPB SCH ×2 (10:45→21:21)
--- NOTE | 2016-12-23 11:32 | CONS ---
Date/Time of Note Date/Time of Note DATE: 12/23/16 TIME: 11:31 Assessment/Plan Assessment/Plan Additional Assessment/Plan 1. Oliguric to Anuric Acute kidney injury 2/2 ATN- started on HD on 12/09/16 for acute fluid overload and Pulmonary edema 2. acute resp failure intubated on ventilator -now extubated on 12/10/2016- then again reintubated on 12/13/2016- now self extubated on 12/18/16 3. Moderate to large right pleural effusion s/p Right thoracentesis 900 cc drained on 12/16/16 2. Left foot diabetic ulcer/cellulitis currently on IV antibiotics, Zosyn and vancomycin. 3. History of diabetes mellitus, insulin-dependent with lower extremity neuropathy. 4. History of hypertension. 5. History of aortic stenosis with diastolic dysfunction with ejection fraction 60% on echocardiogram. PLAN: s/p right thoracentesis 900 cc drained on 12/16/16, Us showed small left pleural effusion s/p HD yesterday, plan for permacath pt pulled out [place] catheter and PICC line - also discussed with family about Permacath placement case management for HD placement will continue to follow up Consultation Date/Type/Reason Admit Date/Time Dec 02, 2016 at 21:01 Initial Consult Date Type of Consultation: NEPHROLOGY Referring Provider: VIET PARKER MD 24 HR Interval Summary Free Text/Dictation pt pulled out his [place] catheter and PICC line, + hematuria, - no bleeding at PICC site Exam/Review of Systems Vital Signs Vitals Vital Signs Date Time Temp Pulse Resp B/P Pulse Ox O2 Delivery O2 Flow Rate FiO2 12/23/16 08:59 83 12/23/16 08:03 97.8 20 147/64 95 12/23/16 03:52 30 12/22/16 21:30 1.0 12/22/16 19:57 Nasal Cannula Intake and Output 12/22/16 12/22/16 12/23/16 15:00 23:00 07:00 Intake Total 1200 ml 910 ml 240 ml Output Total 3700 ml 500 ml 300 ml Balance -2500 ml 410 ml -60 ml Exam Constitutional: awake, alert Respiratory: clear to auscultation, normal air movement Cardiovascular: nl pulses, regular rate and rhythm, systolic murmur Gastrointestinal: non-tender, soft Musculoskeletal: nl extremities to inspection Extremities: normal pulses Neurological: alert *3 Skin: nl turgor, left big toe ulcer. Results Result Diagram: 12/23/1680412/23/16804 Results 24 hrs Laboratory Tests Test 12/22/16 12:28 12/22/16 17:45 12/22/16 20:35 12/23/16 01:48 Lab Scanned Report REFERENCE LAB Bedside Glucose 227 H 192 122 Test 12/23/16 08:05 12/23/16 09:02 White Blood Count 10.2 # Red Blood Count 2.99 L Hemoglobin 9.3 L Hematocrit 28.9 L Mean Corpuscular Volume 96.7 Mean Corpuscular Hemoglobin 31.1 Mean Corpuscular Hemoglobin Concent 32.2 Red Cell Distribution Width 13.4 Platelet Count 208 Mean Platelet Volume 9.5 Neutrophils % 81.2 H Lymphocytes % 6.3 L Monocytes % 9.2 Eosinophils % 1.6 Basophils % 0.4 Nucleated Red Blood Cells % 0.0 Neutrophils # 8.3 H Lymphocytes # 0.6 L Monocytes # 0.9 Eosinophils # 0.2 Basophils # 0.0 Nucleated Red Blood Cells # 0.0 Sodium Level 138 Potassium Level 3.5 Chloride Level 100 Carbon Dioxide Level 24 Anion Gap 18 H Blood Urea Nitrogen 49 H Creatinine 6.85 H Glucose Level 126 # Calcium Level 7.8 L Bedside Glucose 147 Medications Medications Current Medications Diagnostic Test (Pha) (Accu-Chek) 1 ea 02 XX Last administered on 12/23/16 01: 50; Admin Dose 1 EA; Start 12/03/16 at 02:00 Ondansetron HCl (Zofran Inj) 4 mg Q6H PRN IV NAUSEA AND/OR VOMITING Last administered on 12/13/16 01:13; Admin Dose 4 MG; Start 12/02/16 at 22:30 Miscellaneous Information 1 ea NOTE XX ; Start 12/02/16 at 23:00 Glucose (Glutose) 15 gm Q15M PRN PO DECREASED GLUCOSE; Start 12/02/16 at 23:00 Glucose (Glutose) 22.5 gm Q15M PRN PO DECREASED GLUCOSE; Start 12/02/16 at 23: 00 Dextrose (D50w Syringe) 25 ml Q15M PRN IV DECREASED GLUCOSE Last administered on 12/10/16 05:52; Admin Dose 25 ML; Start 12/02/16 at 23:00 Dextrose (D50w Syringe) 50 ml Q15M PRN IV DECREASED GLUCOSE; Start 12/02/16 at 23:00 Glucagon (Glucagen) 1 mg Q15M PRN IM DECREASED GLUCOSE; Start 12/02/16 at 23:00 Glucose (Glutose) 15 gm Q15M PRN BUCCAL DECREASED GLUCOSE; Start 12/02/16 at 23 :00 Aspirin (Halfprin) 81 mg DAILY PO Last administered on 12/23/16 09:11; Admin Dose 81 MG; Start 12/03/16 at 09:00 Gabapentin (Neurontin) 800 mg TID PO Last administered on 12/08/16 20:33; Admin Dose 800 MG; Start 12/03/16 at 09:00; Status Future Hold Meclizine HCl (Antivert) 25 mg TID PRN PO dizziness Last administered on 09:37; Admin Dose 25 MG; Start 12/02/16 at 23:00 Terazosin HCl (Hytrin) 5 mg HS PO Last administered on 12/07/16 20:28; Admin Dose 5 MG; Start 12/03/16 at 21:00; Status Future Hold Acetaminophen/ Hydrocodone Bitart ([place] (5/325)) 1 tab Q6H PRN PO PAIN LEVEL 4 -7 Last administered on 12/10/16 21:31; Admin Dose 1 TAB; Start 12/02/16 at 23: 30 Acetaminophen (Tylenol Tab) 650 mg Q6H PRN PO PAIN AND OR ELEVATED TEMP Last administered on 12/18/16 10:44; Admin Dose 650 MG; Start 12/02/16 at 23:30 Docusate Sodium (Colace) 100 mg BID PO Last administered on 12/08/16 20:32; Admin Dose 100 MG; Start 12/03/16 at 09:00; Status Future Hold Zolpidem Tartrate (Ambien) 5 mg HS PRN PO INSOMNIA Last administered on 00:45; Admin Dose 5 MG; Start 12/02/16 at 23:30 Benazepril HCl (Lotensin) 10 mg DAILY PO Last administered on 12/07/16 08:26; Admin Dose 10 MG; Start 12/04/16 at 09:00; Status Future Hold Collagenase (Santyl) 1 applic DAILY TOP Last administered on 12/22/16 09:37; Admin Dose 1 APPLIC; Start 12/07/16 at 16:00 Lorazepam (Ativan) 2 mg Q2 PRN IV AGITATION/ANXIETY Last administered on 21:54; Admin Dose 2 MG; Start 12/09/16 at 09:30 Morphine Sulfate (morphine) 2 mg Q2H PRN IV PAIN Last administered on 12/20/16 03:22; Admin Dose 2 MG; Start 12/09/16 at 09:30 Acetaminophen 650 mg 650 mg Q6H PRN [place] ELEVATED TEMPERATURE Last administered on 12/09/16 17:53; Admin Dose 650 MG; Start 12/09/16 at 17:00 Piperacillin Sod/ Tazobactam Sod (Zosyn 2.25gm/ 50ml (Pmx)) 50 ml @ 100 mls/hr Q12 IVPB Last administered on 12/23/16 09:13; Admin Dose 100 MLS/HR; Start at 21:00 Metoprolol Tartrate (Lopressor) 5 mg Q4H PRN IV HR>100 Last administered on 22:23; Admin Dose 5 MG; Start 12/09/16 at 17:48 Amiodarone HCl (Cordarone) 200 mg BID PO Last administered on 12/23/16 09:11; Admin Dose 200 MG; Start 12/10/16 at 13:00 Hydralazine HCl (Apresoline) 10 mg Q6H PRN IV SBP>150mm hg Last administered on 12/19/16 08:50; Admin Dose 10 MG; Start 12/11/16 at 10:30 Morphine Sulfate 2 mg 2 mg Q2H PRN IV PAIN LEVEL 4-7; Start 12/13/16 at 10:00 Caspofungin/ Sodium Chloride (Cancidas/NS) 250 ml @ 250 mls/hr Q24H IVPB Last administered on 12/22/16 12:05; Admin Dose 250 MLS/HR; Start 12/15/16 at 11:00 Metoprolol Tartrate 12.5 mg 12.5 mg BID PO Last administered on 12/23/16 09:10 ; Admin Dose 12.5 MG; Start 12/16/16 at 21:00 Linezolid (Zyvox 600mg/D5W (Pmx)) 300 ml @ 300 mls/hr Q12 IVPB Last administered on 12/23/16 10:45; Admin Dose 300 MLS/HR; Start 12/17/16 at 21:00 Insulin Glargine (Lantus) 19 unit DAILY@20 SC Last administered on 12/22/16 20 :43; Admin Dose 19 UNIT; Start 12/18/16 at 20:00 Pantoprazole (Protonix Tab) 40 mg DAILY@06 PO Last administered on 12/23/16 06 :01; Admin Dose 40 MG; Start 12/23/16 at 06:00 TASHIA MCGARRY MD December 23, 2016 11:32
[2016-12-23] MEDS: MECLIZINE 25 MG TAB PO PRN (12:02)
[2016-12-23] MEDS: CASPOFUNGIN 50 MG in SOD CHLORIDE 0.9% 250 ML IVPB SCH (12:55)
--- NOTE | 2016-12-23 14:03 | PN ---
Date/Time of Note Date/Time of Note DATE: 12/23/16 TIME: 13:59 Assessment/Plan VTE Prophylaxis VTE Prophylaxis Intervention: other Lines/Catheters IV [facility]from [facility] Urinary Cath still in place: Yes Reason Cath still needed: urinary retention Assessment/Plan Assessment/Plan - Cellulitis of left foot, 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 and left fourth proximal phalanx per bone scan. Continue antibiotics per ID. - Diabetic foot ulcer of the left foot - per dr Lin is following in podiatry consultation. - Bilateral pleural effusion, this post right sided thoracentesis with removal of 900 cc of fluid. - Acute renal failure, Dr. Remy is following in nephrology consultation. Continue hemodialysis per nephrology. - Pending permacath placement by vascular surgery. - Acute to subacute right occipital lobe ischemic infarct per CT, Dr Morris is following in neurology consultation. - Paroxysmal atrial fibrillation and positive troponin. Dr. Cobian is following and cardiology consultation. Patient was on heparin drip which is currently on hold due to procedure. - Fungemia, om Caspofungin. Dr. Pascual is following in infection disease consultation. - Aortic stenosis - Diastolic dysfunction congestive heart failure with preserved ejection fraction of 60%. - DM, Hgb A1c is 8.7, continue Lantus and pre-meal NovoLog and NovoLog per sliding scale. - Acute respiratory failure secondary to pulmonary edema, resolved. Dr. Alvarez is following from pulmonology standpoint. Further recommendations based on clinical course. Plan of care discussed with Dr. Heredia. Subjective 24 Hr Interval Summary Free Text/Dictation rsting in bed, family at bed side- no new complaints reported. dw staff. Constitutional: improved Eyes: no complaints ENT: no complaints Respiratory: no complaints Cardiovascular: no complaints Gastrointestinal: no complaints Genitourinary: no complaints Musculoskeletal: bone/joint pain Skin: no complaints Neurologic: no complaints Endocrine: no complaints Psychological: nl mood/affect Immunologic: no complaints Exam/Review of Systems Vital Signs Vitals Vital Signs Date Time Temp Pulse Resp B/P Pulse Ox O2 Delivery O2 Flow Rate FiO2 12/23/16 13:36 69 18 94 21 12/23/16 12:01 97.6 116/58 12/22/16 21:30 1.0 12/22/16 19:57 Nasal Cannula Intake and Output 12/22/16 12/22/16 12/23/16 15:00 23:00 07:00 Intake Total 1200 ml 910 ml 240 ml Output Total 3700 ml 500 ml 300 ml Balance -2500 ml 410 ml -60 ml Exam Constitutional: alert, oriented, well developed Psych: no complaints Eyes: nl sclera ENMT: nl external ears & nose Neck: non-tender Respiratory: clear to auscultation Cardiovascular: nl pulses Gastrointestinal: non-tender, soft Musculoskeletal: other Extremities: normal pulses Neurological: nl mental status, nl speech Lymph: nontender Results Result Diagram: 12/23/1680412/23/16 08 Results 24 hrs Laboratory Tests Test 12/22/16 17:45 12/22/16 20:35 12/23/16 01:48 12/23/16 08:05 Bedside Glucose 227 H 192 122 White Blood Count 10.2 # Red Blood Count 2.99 L Hemoglobin 9.3 L Hematocrit 28.9 L Mean Corpuscular Volume 96.7 Mean Corpuscular Hemoglobin 31.1 Mean Corpuscular Hemoglobin Concent 32.2 Red Cell Distribution Width 13.4 Platelet Count 208 Mean Platelet Volume 9.5 Neutrophils % 81.2 H Lymphocytes % 6.3 L Monocytes % 9.2 Eosinophils % 1.6 Basophils % 0.4 Nucleated Red Blood Cells % 0.0 Neutrophils # 8.3 H Lymphocytes # 0.6 L Monocytes # 0.9 Eosinophils # 0.2 Basophils # 0.0 Nucleated Red Blood Cells # 0.0 Sodium Level 138 Potassium Level 3.5 Chloride Level 100 Carbon Dioxide Level 24 Anion Gap 18 H Blood Urea Nitrogen 49 H Creatinine 6.85 H Glucose Level 126 # Calcium Level 7.8 L Test 12/23/16 09:02 12/23/16 12:04 Bedside Glucose 147 209 Medications Medications Current Medications Diagnostic Test (Pha) (Accu-Chek) 1 ea 02 XX Last administered on 12/23/16 01: 50; Admin Dose 1 EA; Start 12/03/16 at 02:00 Ondansetron HCl (Zofran Inj) 4 mg Q6H PRN IV NAUSEA AND/OR VOMITING Last administered on 12/13/16 01:13; Admin Dose 4 MG; Start 12/02/16 at 22:30 Miscellaneous Information 1 ea NOTE XX ; Start 12/02/16 at 23:00 Glucose (Glutose) 15 gm Q15M PRN PO DECREASED GLUCOSE; Start 12/02/16 at 23:00 Glucose (Glutose) 22.5 gm Q15M PRN PO DECREASED GLUCOSE; Start 12/02/16 at 23: 00 Dextrose (D50w Syringe) 25 ml Q15M PRN IV DECREASED GLUCOSE Last administered on 12/10/16 05:52; Admin Dose 25 ML; Start 12/02/16 at 23:00 Dextrose (D50w Syringe) 50 ml Q15M PRN IV DECREASED GLUCOSE; Start 12/02/16 at 23:00 Glucagon (Glucagen) 1 mg Q15M PRN IM DECREASED GLUCOSE; Start 12/02/16 at 23:00 Glucose (Glutose) 15 gm Q15M PRN BUCCAL DECREASED GLUCOSE; Start 12/02/16 at 23 :00 Aspirin (Halfprin) 81 mg DAILY PO Last administered on 12/23/16 09:11; Admin Dose 81 MG; Start 12/03/16 at 09:00 Gabapentin (Neurontin) 800 mg TID PO Last administered on 12/08/16 20:33; Admin Dose 800 MG; Start 12/03/16 at 09:00; Status Future Hold Meclizine HCl (Antivert) 25 mg TID PRN PO dizziness Last administered on 12:02; Admin Dose 25 MG; Start 12/02/16 at 23:00 Terazosin HCl (Hytrin) 5 mg HS PO Last administered on 12/07/16 20:28; Admin Dose 5 MG; Start 12/03/16 at 21:00; Status Future Hold Acetaminophen/ Hydrocodone Bitart ([place] (5/325)) 1 tab Q6H PRN PO PAIN LEVEL 4 -7 Last administered on 12/10/16 21:31; Admin Dose 1 TAB; Start 12/02/16 at 23: 30 Acetaminophen (Tylenol Tab) 650 mg Q6H PRN PO PAIN AND OR ELEVATED TEMP Last administered on 12/18/16 10:44; Admin Dose 650 MG; Start 12/02/16 at 23:30 Docusate Sodium (Colace) 100 mg BID PO Last administered on 12/08/16 20:32; Admin Dose 100 MG; Start 12/03/16 at 09:00; Status Future Hold Zolpidem Tartrate (Ambien) 5 mg HS PRN PO INSOMNIA Last administered on 00:45; Admin Dose 5 MG; Start 12/02/16 at 23:30 Benazepril HCl (Lotensin) 10 mg DAILY PO Last administered on 12/07/16 08:26; Admin Dose 10 MG; Start 12/04/16 at 09:00; Status Future Hold Collagenase (Santyl) 1 applic DAILY TOP Last administered on 12/22/16 09:37; Admin Dose 1 APPLIC; Start 12/07/16 at 16:00 Lorazepam (Ativan) 2 mg Q2 PRN IV AGITATION/ANXIETY Last administered on 21:54; Admin Dose 2 MG; Start 12/09/16 at 09:30 Morphine Sulfate (morphine) 2 mg Q2H PRN IV PAIN Last administered on 12/20/16 03:22; Admin Dose 2 MG; Start 12/09/16 at 09:30 Acetaminophen 650 mg 650 mg Q6H PRN [place] ELEVATED TEMPERATURE Last administered on 12/09/16 17:53; Admin Dose 650 MG; Start 12/09/16 at 17:00 Piperacillin Sod/ Tazobactam Sod (Zosyn 2.25gm/ 50ml (Pmx)) 50 ml @ 100 mls/hr Q12 IVPB Last administered on 12/23/16 09:13; Admin Dose 100 MLS/HR; Start at 21:00 Metoprolol Tartrate (Lopressor) 5 mg Q4H PRN IV HR>100 Last administered on 22:23; Admin Dose 5 MG; Start 12/09/16 at 17:48 Amiodarone HCl (Cordarone) 200 mg BID PO Last administered on 12/23/16 09:11; Admin Dose 200 MG; Start 12/10/16 at 13:00 Hydralazine HCl (Apresoline) 10 mg Q6H PRN IV SBP>150mm hg Last administered on 12/19/16 08:50; Admin Dose 10 MG; Start 12/11/16 at 10:30 Morphine Sulfate 2 mg 2 mg Q2H PRN IV PAIN LEVEL 4-7; Start 12/13/16 at 10:00 Caspofungin/ Sodium Chloride (Cancidas/NS) 250 ml @ 250 mls/hr Q24H IVPB Last administered on 12/23/16 12:55; Admin Dose 250 MLS/HR; Start 12/15/16 at 11:00 Metoprolol Tartrate 12.5 mg 12.5 mg BID PO Last administered on 12/23/16 09:10 ; Admin Dose 12.5 MG; Start 12/16/16 at 21:00 Linezolid (Zyvox 600mg/D5W (Pmx)) 300 ml @ 300 mls/hr Q12 IVPB Last administered on 12/23/16 10:45; Admin Dose 300 MLS/HR; Start 12/17/16 at 21:00 Insulin Glargine (Lantus) 19 unit DAILY@20 SC Last administered on 12/22/16 20 :43; Admin Dose 19 UNIT; Start 12/18/16 at 20:00 Pantoprazole (Protonix Tab) 40 mg DAILY@06 PO Last administered on 12/23/16 06 :01; Admin Dose 40 MG; Start 12/23/16 at 06:00 YULIANA SIMMONS December 23, 2016 14:03
--- NOTE | 2016-12-23 16:39 | CONS ---
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 superficial swab grew inna only - right pleural effusion s/p thoracentesis with .9L removed on 12/16/2016; (Note: there is no pleural fluid cx since orders were placed after Right thoracentesis , and Left thoracentesis was not performed on 12/17/16 d/t insufficient fluid) - funguria - ARANZA, on HD from 12/09/2016 - A fib; now in SR - troponin+ - severe , EF 45% per TTE 12/17/16 - DM - Hgb A1c 8.7% - HTN associated with DM recommendations: - continue caspofungin (12/14/2016-) - continue renally dosed pip/tazo (12/03/2016) empirically for diabetic foot infection, and sepsis - continue linezolid (12/13/2016-) because the lesion of L 1st toe is purulent, and we want to enhance coverage of skin roni - Ultimately, Pt needs 6 weeks of antibiotics to treat 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 and left fourth proximal phalanx: 12/03/2016 through 01/15/2017 Management d/w Pt and Pt's , ALINA Connelly and Dr. Wilson Problems: Consultation Date/Type/Reason Admit Date/Time Dec 02, 2016 at 21:01 Initial Consult Date 12/03/16 Type of Consultation: Infectious Disease Referring Provider: VIET PARKER MD 24 HR Interval Summary Free Text/Dictation PICC line and Molina were removed overnight by pt and pt voided 3 times today with yuridia hematuria per d/w RN Godwin. Pt states he does not recall how PICC and Molina were removed. Denies pain, SOB, n/v/d, dysuria. Exam/Review of Systems Vital Signs Vitals Vital Signs Date Time Temp Pulse Resp B/P Pulse Ox O2 Delivery O2 Flow Rate FiO2 12/23/16 16:21 80 12/23/16 16:03 98.0 17 121/61 90 12/23/16 13:36 21 12/22/16 21:30 1.0 12/22/16 19:57 Nasal Cannula Intake and Output 12/22/16 12/22/16 12/23/16 15:00 23:00 07:00 Intake Total 1200 ml 910 ml 240 ml Output Total 3700 ml 500 ml 300 ml Balance -2500 ml 410 ml -60 ml Exam Constitutional: alert, oriented, well developed Psych: nl mood/affect Head: atraumatic, normocephalic Eyes: nl sclera Neck: supple Respiratory: clear to auscultation (anteriorly), diminished breath sounds ( bibasilar), normal air movement, No wheezing Cardiovascular: regular rate and rhythm, systolic murmur Gastrointestinal: bowel sounds (present), non-tender, soft, No distended Genitourinary - Male: other (Right groin HD catheter with no e/o infection) Extremities: other (LUE hand HL with no e/o infection), No clubbing, No cyanosis Neurological: nl mental status, nl speech (Primarily Setsw[place] speaking; few Par[place]ayan) Skin: nl turgor, other (See nurse note and photos in chart for details; stage 2 sacrococcyx ulcer; Left great toe diabetic ulcer with painted with Betadine) Results Result Diagram: 12/23/1680412/23/16804 Results 24 hrs Laboratory Tests Test 12/22/16 17:45 12/22/16 20:35 12/23/16 01:48 12/23/16 08:05 Bedside Glucose 227 H 192 122 White Blood Count 10.2 # Red Blood Count 2.99 L Hemoglobin 9.3 L Hematocrit 28.9 L Mean Corpuscular Volume 96.7 Mean Corpuscular Hemoglobin 31.1 Mean Corpuscular Hemoglobin Concent 32.2 Red Cell Distribution Width 13.4 Platelet Count 208 Mean Platelet Volume 9.5 Neutrophils % 81.2 H Lymphocytes % 6.3 L Monocytes % 9.2 Eosinophils % 1.6 Basophils % 0.4 Nucleated Red Blood Cells % 0.0 Neutrophils # 8.3 H Lymphocytes # 0.6 L Monocytes # 0.9 Eosinophils # 0.2 Basophils # 0.0 Nucleated Red Blood Cells # 0.0 Sodium Level 138 Potassium Level 3.5 Chloride Level 100 Carbon Dioxide Level 24 Anion Gap 18 H Blood Urea Nitrogen 49 H Creatinine 6.85 H Glucose Level 126 # Calcium Level 7.8 L Test 12/23/16 09:02 12/23/16 12:04 Bedside Glucose 147 209 Medications Medications Current Medications Diagnostic Test (Pha) (Accu-Chek) 1 ea 02 XX Last administered on 12/23/16 01: 50; Admin Dose 1 EA; Start 12/03/16 at 02:00 Ondansetron HCl (Zofran Inj) 4 mg Q6H PRN IV NAUSEA AND/OR VOMITING Last administered on 12/13/16 01:13; Admin Dose 4 MG; Start 12/02/16 at 22:30 Miscellaneous Information 1 ea NOTE XX ; Start 12/02/16 at 23:00 Glucose (Glutose) 15 gm Q15M PRN PO DECREASED GLUCOSE; Start 12/02/16 at 23:00 Glucose (Glutose) 22.5 gm Q15M PRN PO DECREASED GLUCOSE; Start 12/02/16 at 23: 00 Dextrose (D50w Syringe) 25 ml Q15M PRN IV DECREASED GLUCOSE Last administered on 12/10/16 05:52; Admin Dose 25 ML; Start 12/02/16 at 23:00 Dextrose (D50w Syringe) 50 ml Q15M PRN IV DECREASED GLUCOSE; Start 12/02/16 at 23:00 Glucagon (Glucagen) 1 mg Q15M PRN IM DECREASED GLUCOSE; Start 12/02/16 at 23:00 Glucose (Glutose) 15 gm Q15M PRN BUCCAL DECREASED GLUCOSE; Start 12/02/16 at 23 :00 Aspirin (Halfprin) 81 mg DAILY PO Last administered on 12/23/16 09:11; Admin Dose 81 MG; Start 12/03/16 at 09:00 Gabapentin (Neurontin) 800 mg TID PO Last administered on 12/08/16 20:33; Admin Dose 800 MG; Start 12/03/16 at 09:00; Status Future Hold Meclizine HCl (Antivert) 25 mg TID PRN PO dizziness Last administered on 12:02; Admin Dose 25 MG; Start 12/02/16 at 23:00 Terazosin HCl (Hytrin) 5 mg HS PO Last administered on 12/07/16 20:28; Admin Dose 5 MG; Start 12/03/16 at 21:00; Status Future Hold Acetaminophen/ Hydrocodone Bitart ([place] (5/325)) 1 tab Q6H PRN PO PAIN LEVEL 4 -7 Last administered on 12/10/16 21:31; Admin Dose 1 TAB; Start 12/02/16 at 23: 30 Acetaminophen (Tylenol Tab) 650 mg Q6H PRN PO PAIN AND OR ELEVATED TEMP Last administered on 12/18/16 10:44; Admin Dose 650 MG; Start 12/02/16 at 23:30 Docusate Sodium (Colace) 100 mg BID PO Last administered on 12/08/16 20:32; Admin Dose 100 MG; Start 12/03/16 at 09:00; Status Future Hold Zolpidem Tartrate (Ambien) 5 mg HS PRN PO INSOMNIA Last administered on 00:45; Admin Dose 5 MG; Start 12/02/16 at 23:30 Benazepril HCl (Lotensin) 10 mg DAILY PO Last administered on 12/07/16 08:26; Admin Dose 10 MG; Start 12/04/16 at 09:00; Status Future Hold Collagenase (Santyl) 1 applic DAILY TOP Last administered on 12/22/16 09:37; Admin Dose 1 APPLIC; Start 12/07/16 at 16:00 Lorazepam (Ativan) 2 mg Q2 PRN IV AGITATION/ANXIETY Last administered on 21:54; Admin Dose 2 MG; Start 12/09/16 at 09:30 Morphine Sulfate (morphine) 2 mg Q2H PRN IV PAIN Last administered on 12/20/16 03:22; Admin Dose 2 MG; Start 12/09/16 at 09:30 Acetaminophen 650 mg 650 mg Q6H PRN [place] ELEVATED TEMPERATURE Last administered on 12/09/16 17:53; Admin Dose 650 MG; Start 12/09/16 at 17:00 Piperacillin Sod/ Tazobactam Sod (Zosyn 2.25gm/ 50ml (Pmx)) 50 ml @ 100 mls/hr Q12 IVPB Last administered on 12/23/16 09:13; Admin Dose 100 MLS/HR; Start at 21:00 Metoprolol Tartrate (Lopressor) 5 mg Q4H PRN IV HR>100 Last administered on 22:23; Admin Dose 5 MG; Start 12/09/16 at 17:48 Amiodarone HCl (Cordarone) 200 mg BID PO Last administered on 12/23/16 09:11; Admin Dose 200 MG; Start 12/10/16 at 13:00 Hydralazine HCl (Apresoline) 10 mg Q6H PRN IV SBP>150mm hg Last administered on 12/19/16 08:50; Admin Dose 10 MG; Start 12/11/16 at 10:30 Morphine Sulfate 2 mg 2 mg Q2H PRN IV PAIN LEVEL 4-7; Start 12/13/16 at 10:00 Caspofungin/ Sodium Chloride (Cancidas/NS) 250 ml @ 250 mls/hr Q24H IVPB Last administered on 12/23/16 12:55; Admin Dose 250 MLS/HR; Start 12/15/16 at 11:00 Metoprolol Tartrate 12.5 mg 12.5 mg BID PO Last administered on 12/23/16 09:10 ; Admin Dose 12.5 MG; Start 12/16/16 at 21:00 Linezolid (Zyvox 600mg/D5W (Pmx)) 300 ml @ 300 mls/hr Q12 IVPB Last administered on 12/23/16 10:45; Admin Dose 300 MLS/HR; Start 12/17/16 at 21:00 Insulin Glargine (Lantus) 19 unit DAILY@20 SC Last administered on 12/22/16 20 :43; Admin Dose 19 UNIT; Start 12/18/16 at 20:00 Pantoprazole (Protonix Tab) 40 mg DAILY@06 PO Last administered on 12/23/16 06 :01; Admin Dose 40 MG; Start 12/23/16 at 06:00 Procedures Procedures CXR 12/22/16: 1. Interval removal of left PICC catheter. 2. Bibasilar greater than bilateral upper lobe consolidation with small to moderate bilateral pleural effusions. 3. Mild cardiomegaly and atherosclerotic vascular disease 4. Thoracic spondylosis, healed right midclavicular fracture and degenerative changes of the bilateral acromioclavicular and glenohumeral joints. YUMIKO ALATORRE NP December 23, 2016 16:39
--- NOTE | 2016-12-23 19:29 | CONS ---
Date/Time of Note Date/Time of Note DATE: 12/23/16 TIME: 19:25 Assessment/Plan Assessment/Plan Chief Complaint/Hosp Course IMPRESSION: 1. Atrial fibrillation-currently in SR/ST with PAC's 2. Hypotension-resolved off of pat 3. Abnormal electrocardiogram with inferolateral T-wave inversions. 4. Respiratory failure-s/p intubation and remains 5. Nonhealing toe ulceration. 6. Peripheral arterial disease by arterial ultrasound of the lower extremities this admission. 7. Diabetes mellitus. 8. Fevers. 9. Positive troponin-downtrended 10.Bradycardia-mainly 50's Recc: -Tele -serial ecg -HD for volume removal as necessary -Continue asa but increase to 325 -Heparin currently held -Continue PO amio in attempt to maintain SR -low dose BB as tolerated only following HR closely -Will consider LHC/RHC versus lexiscan when patient creatnine stable or definately to be continue of HD longterm Problems: Consultation Date/Type/Reason Admit Date/Time Dec 02, 2016 at 21:01 Initial Consult Date 12/03/16 Type of Consultation: Cardiology Reason for Consultation PAF/positive troponin Referring Provider: VIET PARKER MD Exam/Review of Systems Vital Signs Vitals Vital Signs Date Time Temp Pulse Resp B/P Pulse Ox O2 Delivery O2 Flow Rate FiO2 12/23/16 16:42 93 Room Air 12/23/16 16:21 80 12/23/16 16:03 98.0 17 121/61 12/23/16 13:36 21 12/22/16 21:30 1.0 Intake and Output 12/22/16 12/22/16 12/23/16 15:00 23:00 07:00 Intake Total 1200 ml 910 ml 240 ml Output Total 3700 ml 500 ml 300 ml Balance -2500 ml 410 ml -60 ml Exam Review of Systems: CONSTITUTIONAL: No fevers, chills. PULMONARY: No sob CARDIOVASCULAR: No chest pain/palpitations GASTROINTESTINAL: No nausea/vomiting. GENITOURINARY: No hematuria/dysuria. MUSCULOSKELETAL: No myagias/arthalgias. PSYCHIATRIC: The patient denies depression. NEUROLOGIC: No weakness Constitutional: alert Psych: no complaints Head: normocephalic ENMT: mucosa pink and moist Neck: jvd (9 cm water), supple Respiratory: diminished breath sounds (at bases/B) Cardiovascular: regular rate and rhythm Gastrointestinal: non-tender, soft Musculoskeletal: muscle tone (normal) Extremities: edema (none) Neurological: other (No focal deficits) Results Result Diagram: 12/23/1680412/23/16804 Results 24 hrs Laboratory Tests Test 12/22/16 20:35 12/23/16 01:48 12/23/16 08:05 12/23/16 09:02 Bedside Glucose 192 122 147 White Blood Count 10.2 # Red Blood Count 2.99 L Hemoglobin 9.3 L Hematocrit 28.9 L Mean Corpuscular Volume 96.7 Mean Corpuscular Hemoglobin 31.1 Mean Corpuscular Hemoglobin Concent 32.2 Red Cell Distribution Width 13.4 Platelet Count 208 Mean Platelet Volume 9.5 Neutrophils % 81.2 H Lymphocytes % 6.3 L Monocytes % 9.2 Eosinophils % 1.6 Basophils % 0.4 Nucleated Red Blood Cells % 0.0 Neutrophils # 8.3 H Lymphocytes # 0.6 L Monocytes # 0.9 Eosinophils # 0.2 Basophils # 0.0 Nucleated Red Blood Cells # 0.0 Sodium Level 138 Potassium Level 3.5 Chloride Level 100 Carbon Dioxide Level 24 Anion Gap 18 H Blood Urea Nitrogen 49 H Creatinine 6.85 H Glucose Level 126 # Calcium Level 7.8 L Test 12/23/16 12:04 12/23/16 17:22 Bedside Glucose 209 204 Medications Medications Current Medications Diagnostic Test (Pha) (Accu-Chek) 1 ea 02 XX Last administered on 12/23/16 01: 50; Admin Dose 1 EA; Start 12/03/16 at 02:00 Ondansetron HCl (Zofran Inj) 4 mg Q6H PRN IV NAUSEA AND/OR VOMITING Last administered on 12/13/16 01:13; Admin Dose 4 MG; Start 12/02/16 at 22:30 Miscellaneous Information 1 ea NOTE XX ; Start 12/02/16 at 23:00 Glucose (Glutose) 15 gm Q15M PRN PO DECREASED GLUCOSE; Start 12/02/16 at 23:00 Glucose (Glutose) 22.5 gm Q15M PRN PO DECREASED GLUCOSE; Start 12/02/16 at 23: 00 Dextrose (D50w Syringe) 25 ml Q15M PRN IV DECREASED GLUCOSE Last administered on 12/10/16 05:52; Admin Dose 25 ML; Start 12/02/16 at 23:00 Dextrose (D50w Syringe) 50 ml Q15M PRN IV DECREASED GLUCOSE; Start 12/02/16 at 23:00 Glucagon (Glucagen) 1 mg Q15M PRN IM DECREASED GLUCOSE; Start 12/02/16 at 23:00 Glucose (Glutose) 15 gm Q15M PRN BUCCAL DECREASED GLUCOSE; Start 12/02/16 at 23 :00 Aspirin (Halfprin) 81 mg DAILY PO Last administered on 12/23/16 09:11; Admin Dose 81 MG; Start 12/03/16 at 09:00 Gabapentin (Neurontin) 800 mg TID PO Last administered on 12/08/16 20:33; Admin Dose 800 MG; Start 12/03/16 at 09:00; Status Future Hold Meclizine HCl (Antivert) 25 mg TID PRN PO dizziness Last administered on 12:02; Admin Dose 25 MG; Start 12/02/16 at 23:00 Terazosin HCl (Hytrin) 5 mg HS PO Last administered on 12/07/16 20:28; Admin Dose 5 MG; Start 12/03/16 at 21:00; Status Future Hold Acetaminophen/ Hydrocodone Bitart ([place] (5/325)) 1 tab Q6H PRN PO PAIN LEVEL 4 -7 Last administered on 12/10/16 21:31; Admin Dose 1 TAB; Start 12/02/16 at 23: 30 Acetaminophen (Tylenol Tab) 650 mg Q6H PRN PO PAIN AND OR ELEVATED TEMP Last administered on 12/18/16 10:44; Admin Dose 650 MG; Start 12/02/16 at 23:30 Docusate Sodium (Colace) 100 mg BID PO Last administered on 12/08/16 20:32; Admin Dose 100 MG; Start 12/03/16 at 09:00; Status Future Hold Zolpidem Tartrate (Ambien) 5 mg HS PRN PO INSOMNIA Last administered on 00:45; Admin Dose 5 MG; Start 12/02/16 at 23:30 Benazepril HCl (Lotensin) 10 mg DAILY PO Last administered on 12/07/16 08:26; Admin Dose 10 MG; Start 12/04/16 at 09:00; Status Future Hold Collagenase (Santyl) 1 applic DAILY TOP Last administered on 12/22/16 09:37; Admin Dose 1 APPLIC; Start 12/07/16 at 16:00 Lorazepam (Ativan) 2 mg Q2 PRN IV AGITATION/ANXIETY Last administered on 21:54; Admin Dose 2 MG; Start 12/09/16 at 09:30 Morphine Sulfate (morphine) 2 mg Q2H PRN IV PAIN Last administered on 12/20/16 03:22; Admin Dose 2 MG; Start 12/09/16 at 09:30 Acetaminophen 650 mg 650 mg Q6H PRN [place] ELEVATED TEMPERATURE Last administered on 12/09/16 17:53; Admin Dose 650 MG; Start 12/09/16 at 17:00 Piperacillin Sod/ Tazobactam Sod (Zosyn 2.25gm/ 50ml (Pmx)) 50 ml @ 100 mls/hr Q12 IVPB Last administered on 12/23/16 09:13; Admin Dose 100 MLS/HR; Start at 21:00 Metoprolol Tartrate (Lopressor) 5 mg Q4H PRN IV HR>100 Last administered on 22:23; Admin Dose 5 MG; Start 12/09/16 at 17:48 Amiodarone HCl (Cordarone) 200 mg BID PO Last administered on 12/23/16 09:11; Admin Dose 200 MG; Start 12/10/16 at 13:00 Hydralazine HCl (Apresoline) 10 mg Q6H PRN IV SBP>150mm hg Last administered on 12/19/16 08:50; Admin Dose 10 MG; Start 12/11/16 at 10:30 Morphine Sulfate 2 mg 2 mg Q2H PRN IV PAIN LEVEL 4-7; Start 12/13/16 at 10:00 Caspofungin/ Sodium Chloride (Cancidas/NS) 250 ml @ 250 mls/hr Q24H IVPB Last administered on 12/23/16 12:55; Admin Dose 250 MLS/HR; Start 12/15/16 at 11:00 Metoprolol Tartrate 12.5 mg 12.5 mg BID PO Last administered on 12/23/16 09:10 ; Admin Dose 12.5 MG; Start 12/16/16 at 21:00 Linezolid (Zyvox 600mg/D5W (Pmx)) 300 ml @ 300 mls/hr Q12 IVPB Last administered on 12/23/16 10:45; Admin Dose 300 MLS/HR; Start 12/17/16 at 21:00 Insulin Glargine (Lantus) 19 unit DAILY@20 SC Last administered on 12/22/16 20 :43; Admin Dose 19 UNIT; Start 12/18/16 at 20:00 Pantoprazole (Protonix Tab) 40 mg DAILY@06 PO Last administered on 12/23/16 06 :01; Admin Dose 40 MG; Start 12/23/16 at 06:00 VICENTE LESLIE December 23, 2016 19:29
[2016-12-23] MEDS: INSULIN GLARGINE [LANtus] 3 ML PEN SC SCH (20:43)
--- NOTE | 2016-12-23 21:31 | PN ---
Date/Time of Note Date/Time of Note DATE: 12/23/16 TIME: 21:29 Assessment/Plan Lines/Catheters IV Catheter Type (from [facility], [place]): Saline Lock Molina in Place (from [facility], [place]): Yes Assessment/Plan Chief Complaint/Hosp Course -Bilateral lower extremity atherosclerosis with left first toe plantar ulcer: It seems the patient has developed a first toe plantar ulcer,and diabetic foot infection which may be related to his fall over a week ago. The bilateral lower extremity noninvasive vascular studies demonstrated some infrapopliteal disease as the patient does not have palpable pedal pulses and has been a long time smoker. -ATN: It seems the patient will need permanent catheter and likely eventually fistula creation. Will await for fungemia to resolve prior to a perm catheter placement -Continue with antibiotics -No vascular intervention for now. Will follow the wound progress closely and would recommend an angiogram with possible intervention if poor wound healing arises -Optimize vascular status (BP meds, diet, nutrition, exercise, sugar control, antiplatelets, weight loss). -Discussed smoking cessation with the patient and he understands. 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 -Thank you for allowing us to partake in the care of your patient. Please call with any questions. Problems: Subjective 24 Hr Interval Summary no new vascular events overnight Exam/Review of Systems Vital Signs Vitals Vital Signs Date Time Temp Pulse Resp B/P Pulse Ox O2 Delivery O2 Flow Rate FiO2 12/23/16 20:59 70 18 93 21 12/23/16 20:20 99.0 120/60 12/23/16 16:42 Room Air 12/22/16 21:30 1.0 Intake and Output 12/22/16 12/22/16 12/23/16 15:00 23:00 07:00 Intake Total 1200 ml 910 ml 240 ml Output Total 3700 ml 500 ml 300 ml Balance -2500 ml 410 ml -60 ml Exam Free Text/Dictation GENERAL: Alert and oriented x3, PULMONARY: Clear to auscultation bilaterally CARDIOVASCULAR: S1, S2 present ABDOMEN: Soft, nontender, nondistended. Bowel sounds positive. EXTREMITIES: Right lower extremity: Palpable femoral pulse, nonpalpable pedal pulse. Motor , sensory intact. Cap refill 3 to 4 seconds. No ulcers identified. Left lower extremity: Palpable femoral pulse, nonpalpable pedal pulse. Motor and sensory intact. Cap refill 3 to 4 seconds. First toe with erythema and edema improved. Plantar ulcer of 1st metatarsal with callus and erythema improved, No drainage Results Result Diagram: 12/23/1680412/23/16804 KAROLINE SHOEMAKER MD December 23, 2016 21:31
[2016-12-23] MEDS: HYDROCODONE/APAP (5/325) TAB PO PRN (22:14)
--- NOTE | 2016-12-23 23:48 | CONS ---
DATE OF ADMISSION: 12/02/2016 DATE OF CONSULTATION: 12/23/2016 UROLOGY CONSULTATION REQUESTING PHYSICIAN: Zhou Heredia MD Dear Dr. Heredia: Thank you for asking me to see this patient in urological consultation. HISTORY OF PRESENT ILLNESS: This is a 66-year-old, Palestinian male, who was admitted through the [facility] room on 12/02/2016, complaining of pain in his toes and was found to have cellulitis. The pat ient also had acute respiratory failure. He was intubated. He was then extubated. He had to be re intubated again, and he self-extubated on 12/18/2016. The patient also appeared to have had an indw elling Molina catheter that he pulled out last night, and he was bleeding. Therefore, a urological c onsultation was requested. The patient also does have a history of acute oliguric to anuric acute k idney injury secondary to acute tubular necrosis. He was put on hemodialysis on 12/09/2016, because of acute fluid overload and pulmonary edema. After the Molina catheter was pulled out by the patien mary, he did void once with blood urine. I have communicated with the nurse to leave him alone and obs erve him as the hematuria gradually will clear, and not to insert a Molina catheter. If he goes into retention, then we could do straight catheterization, rather than keeping the catheter in, especial ly because he is in renal failure at present. PAST MEDICAL HISTORY: Includes a history of aortic stenosis with diastolic dysfunction with an ejec tion fraction estimated at 60%. 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 The patient does have a left diabetic foot ulcer, celluli tis, and he has been on IV antibiotics of Zosyn and vancomycin. He does have moderate to large righ t pleural effusion, and he has had thoracentesis with 900 mL drained on 12/16/2016. SOCIAL HISTORY: The patient used to be a smoker. He does not drink. ALLERGIES: HAS NO ALLERGY TO MEDICATIONS, BUT IT SEEMS HE HAD A BAD EFFECT FROM VANCOMYCIN. PRESENT MEDICATIONS: Includes: 1. Aspirin. 2. Protonix. 3. Insulin. 4. Albuterol/ipratropium. 5. Lantus insulin. 6. Linezolid. 7. Metoprolol. 8. Heparin after dialysis. 9. Caspofungin. 10. Morphine sulfate. 11. Hydralazine. 12. Amiodarone. 13. Zosyn. 14. Tylenol. 15. Ativan. 16. Santyl topical application. 17. Ambien p.r.n. for sleep. 18. Meclizine 25 mg 3 times a day p.r.n. 19. Zofran p.r.n. PHYSICAL EXAMINATION: GENERAL: Reveals an elderly male. His was at his bedside, and they tell me that prior to his hospital admission this time, he has been voiding well at home and denies having any problem with ur inary retention. The patient weighs 84.8 kg. He is 67 inches tall. VITAL SIGNS: Show a temperature of 99.0, pulse is 70, respiration 18, blood pressure 120/60. ABDOMEN: Soft. There is no abdominal mass palpable. GENITALIA: External genitalia are normal. RECTAL: Examination revealed a soft prostate that is mildly enlarged. EXTREMITIES: Reveal no edema. LABORATORY DATA: His CBC shows a white count of 10.2, hemoglobin 9.3, hematocrit 28.9. BUN is 49, creatinine 6.85, sodium 138, potassium 3.5, chloride 100, CO2 of 24. Urine culture from 12/13/2016, showed Odilia albicans, and the patient is on Caspofungin because of that. IMPRESSION: Traumatic gross hematuria from pulling out the catheter with the balloon inflated. The patient is in acute renal failure. He does not make much urine. Therefore, the recommendation is to not to insert a new Molina catheter, watch him, and hopefully the hematuria will clear up by itse lf. Should he not be able to urinate, then we will do a bladder scan and when his bladder volume is over 500 mL, and he does not urinate, then we will do a straight catheterization on him. I will follow his urological problem with you. I do thank you for allowing me to help in his care. Dictated By: JOE KUMAR/MICHELLE Conf#: [id number] DID#: [id number]
[2016-12-24] VITALS (24 sets, daily range): BP systolic 115–144; BP diastolic 56–77; PULSE 64–95; RESP 16–21
[2016-12-24] MEDS: ACCU-CHEK XX SCH (01:41)
[2016-12-24] MEDS: PANTOPRAZOLE (EC) 40 MG TAB PO SCH (06:17)
[2016-12-24 07:53] LABS: ADD SCAN DIFF NO
[2016-12-24] MEDS: INSULIN ASPART [NOVOLOG] 3 ML PEN SC SCH ×7 (08:00→20:52)
[2016-12-24 08:06] LABS: BASOPHIL # 0.1 10^3/ul (0.0-0.1); BASOPHILS % 0.6 % (0.0-2.0); EOSINOPHILS # 0.2 10^3/ul (0.0-0.5); EOSINOPHILS % 1.9 % (0.0-7.0); HEMATOCRIT 31.4 % (42.0-52.0); HEMOGLOBIN 9.9 g/dl (14.0-18.0); LYMPHOCYTES # 0.9 10^3/ul (0.8-2.9); LYMPHOCYTES % 10.5 % (15.0-51.0); MEAN CORPUSCULAR HEMOGLOBIN 30.7 pg (29.0-33.0); MEAN CORPUSCULAR HGB CONC 31.5 g/dl (32.0-37.0); MEAN CORPUSCULAR VOLUME 97.5 fl (82.0-101.0); MEAN PLATELET VOLUME 9.5 fl (7.4-10.4); MONOCYTE # 0.8 10^3/ul (0.3-0.9); MONOCYTES % 9.2 % (0.0-11.0); NEUTROPHIL # 6.6 10^3/ul (1.6-7.5); NEUTROPHILS % 76.7 % (39.0-77.0); PLATELET COUNT 186 10^3/UL (140-415); RED BLOOD COUNT 3.22 10^6/ul (4.70-6.10); RED CELL DISTRIBUTION WIDTH 13.6 % (11.5-14.5); WHITE BLOOD COUNT 8.6 10^3/ul (4.8-10.8)
[2016-12-24] MEDS: ALBUTEROL/IPRATROPIUM (NEB) 3 ML AMP HHN SCH ×3 (08:19→19:41)
[2016-12-24] MEDS: PIPER-TAZO 2.25 GM (PMX) 50 ML IVPB SCH ×2 (08:24→20:48)
[2016-12-24] MEDS: ASPIRIN (EC) 325 MG TAB PO SCH (08:25)
[2016-12-24] MEDS: METOPROLOL 25 MG TAB PO SCH ×2 (08:26→20:48)
[2016-12-24] MEDS: AMIODARONE 200 MG TAB PO SCH ×2 (08:26→20:47)
[2016-12-24] MEDS: COLLAGENASE 30 GM TUBE TOP SCH (08:33)
[2016-12-24 09:05] LABS: POTASSIUM 4.3 mmol/L (3.5-5.1)
[2016-12-24 09:07] LABS: CREATININE 7.44 mg/dl (0.61-1.24)
[2016-12-24] MEDS: LINEZOLID 600 MG/D5W (PMX) 300 ML IVPB SCH (11:00)
[2016-12-24] MEDS ORDERED: REGADENOSON 0.4 MG/5 ML SYG ONE (11:17)
[2016-12-24 11:46] LABS: INR 1.16; PROTIME 14.9 Sec (12.2-14.2); PT RATIO 1.2
--- NOTE | 2016-12-24 12:00 | CONS ---
Date/Time of Note Date/Time of Note DATE: 12/24/16 TIME: 11:57 Assessment/Plan Assessment/Plan Additional Assessment/Plan 1. Oliguric to Anuric Acute kidney injury 2/2 ATN- started on HD on 12/09/16 for acute fluid overload and Pulmonary edema 2. acute resp failure intubated on ventilator -now extubated on 12/10/2016- then again reintubated on 12/13/2016- now self extubated on 12/18/16 3. Moderate to large right pleural effusion s/p Right thoracentesis 900 cc drained on 12/16/16 2. Left foot diabetic ulcer/cellulitis currently on IV antibiotics, Zosyn and vancomycin. 3. History of diabetes mellitus, insulin-dependent with lower extremity neuropathy. 4. History of hypertension. 5. History of aortic stenosis with diastolic dysfunction with ejection fraction 60% on echocardiogram. PLAN: s/p right thoracentesis 900 cc drained on 12/16/16, Us showed small left pleural effusion s/p HD today,no plan for HD tomorrow - also discussed with family about Permacath placement - possible plan for permacath today, follow up blood cx has been negative to date from 12/13/16 case management for HD placement will continue to follow up Consultation Date/Type/Reason Admit Date/Time Dec 02, 2016 at 21:01 Initial Consult Date Type of Consultation: NEPHROLOGY Referring Provider: VIET PARKER MD 24 HR Interval Summary Free Text/Dictation s/p Urology evaluation for hematuria, had a HD today 3 L removed, BP stable, plan for permacath today Exam/Review of Systems Vital Signs Vitals Vital Signs Date Time Temp Pulse Resp B/P Pulse Ox O2 Delivery O2 Flow Rate FiO2 12/24/16 11:26 98.7 71 18 144/62 96 12/24/16 08:20 21 12/23/16 16:42 Room Air 12/22/16 21:30 1.0 Intake and Output 12/23/16 12/23/16 12/24/16 15:00 23:00 07:00 Intake Total 1360 ml Output Total 350 ml Balance 1010 ml Exam Constitutional: awake, alert Respiratory: clear to auscultation, normal air movement Cardiovascular: nl pulses, regular rate and rhythm, systolic murmur Gastrointestinal: non-tender, soft Musculoskeletal: nl extremities to inspection Extremities: normal pulses Neurological: alert *3 Skin: nl turgor, left big toe ulcer. Results Result Diagram: 12/24/16 0712/24/16 07 Results 24 hrs Laboratory Tests Test 12/23/16 12:04 12/23/16 17:22 12/23/16 20:33 12/24/16 07:05 Bedside Glucose 209 204 147 White Blood Count 8.6 Red Blood Count 3.22 L Hemoglobin 9.9 L Hematocrit 31.4 L Mean Corpuscular Volume 97.5 Mean Corpuscular Hemoglobin 30.7 Mean Corpuscular Hemoglobin Concent 31.5 L Red Cell Distribution Width 13.6 Platelet Count 186 Mean Platelet Volume 9.5 Neutrophils % 76.7 Lymphocytes % 10.5 L Monocytes % 9.2 Eosinophils % 1.9 Basophils % 0.6 Nucleated Red Blood Cells % 0.0 Neutrophils # 6.6 Lymphocytes # 0.9 Monocytes # 0.8 Eosinophils # 0.2 Basophils # 0.1 Nucleated Red Blood Cells # 0.0 Sodium Level 138 Potassium Level 4.3 Chloride Level 101 Carbon Dioxide Level 22 Anion Gap 19 H Blood Urea Nitrogen 55 H Creatinine 7.44 H Glucose Level 84 # Calcium Level 8.0 L Test 12/24/16 08:03 12/24/16 10:00 Bedside Glucose 93 Prothrombin Time 14.9 H Prothrombin Time Ratio 1.2 INR International Normalized Ratio 1.16 Activated Partial Thromboplast Time Pending Medications Medications Current Medications Diagnostic Test (Pha) (Accu-Chek) 1 ea 02 XX Last administered on 12/23/16 01: 50; Admin Dose 1 EA; Start 12/03/16 at 02:00 Ondansetron HCl (Zofran Inj) 4 mg Q6H PRN IV NAUSEA AND/OR VOMITING Last administered on 12/13/16 01:13; Admin Dose 4 MG; Start 12/02/16 at 22:30 Miscellaneous Information 1 ea NOTE XX ; Start 12/02/16 at 23:00 Glucose (Glutose) 15 gm Q15M PRN PO DECREASED GLUCOSE; Start 12/02/16 at 23:00 Glucose (Glutose) 22.5 gm Q15M PRN PO DECREASED GLUCOSE; Start 12/02/16 at 23: 00 Dextrose (D50w Syringe) 25 ml Q15M PRN IV DECREASED GLUCOSE Last administered on 12/10/16 05:52; Admin Dose 25 ML; Start 12/02/16 at 23:00 Dextrose (D50w Syringe) 50 ml Q15M PRN IV DECREASED GLUCOSE; Start 12/02/16 at 23:00 Glucagon (Glucagen) 1 mg Q15M PRN IM DECREASED GLUCOSE; Start 12/02/16 at 23:00 Glucose (Glutose) 15 gm Q15M PRN BUCCAL DECREASED GLUCOSE; Start 12/02/16 at 23 :00 Gabapentin (Neurontin) 800 mg TID PO Last administered on 12/08/16 20:33; Admin Dose 800 MG; Start 12/03/16 at 09:00; Status Future Hold Meclizine HCl (Antivert) 25 mg TID PRN PO dizziness Last administered on 12:02; Admin Dose 25 MG; Start 12/02/16 at 23:00 Terazosin HCl (Hytrin) 5 mg HS PO Last administered on 12/07/16 20:28; Admin Dose 5 MG; Start 12/03/16 at 21:00; Status Future Hold Acetaminophen/ Hydrocodone Bitart ([place] (5/325)) 1 tab Q6H PRN PO PAIN LEVEL 4 -7 Last administered on 12/23/16 22:14; Admin Dose 1 TAB; Start 12/02/16 at 23: 30 Acetaminophen (Tylenol Tab) 650 mg Q6H PRN PO PAIN AND OR ELEVATED TEMP Last administered on 12/18/16 10:44; Admin Dose 650 MG; Start 12/02/16 at 23:30 Docusate Sodium (Colace) 100 mg BID PO Last administered on 12/08/16 20:32; Admin Dose 100 MG; Start 12/03/16 at 09:00; Status Future Hold Zolpidem Tartrate (Ambien) 5 mg HS PRN PO INSOMNIA Last administered on 00:45; Admin Dose 5 MG; Start 12/02/16 at 23:30 Benazepril HCl (Lotensin) 10 mg DAILY PO Last administered on 12/07/16 08:26; Admin Dose 10 MG; Start 12/04/16 at 09:00; Status Future Hold Collagenase (Santyl) 1 applic DAILY TOP Last administered on 12/24/16 08:33; Admin Dose 1 APPLIC; Start 12/07/16 at 16:00 Lorazepam (Ativan) 2 mg Q2 PRN IV AGITATION/ANXIETY Last administered on 21:54; Admin Dose 2 MG; Start 12/09/16 at 09:30 Morphine Sulfate (morphine) 2 mg Q2H PRN IV PAIN Last administered on 12/20/16 03:22; Admin Dose 2 MG; Start 12/09/16 at 09:30 Acetaminophen 650 mg 650 mg Q6H PRN [place] ELEVATED TEMPERATURE Last administered on 12/09/16 17:53; Admin Dose 650 MG; Start 12/09/16 at 17:00 Piperacillin Sod/ Tazobactam Sod (Zosyn 2.25gm/ 50ml (Pmx)) 50 ml @ 100 mls/hr Q12 IVPB Last administered on 12/24/16 08:24; Admin Dose 100 MLS/HR; Start at 21:00 Metoprolol Tartrate (Lopressor) 5 mg Q4H PRN IV HR>100 Last administered on 22:23; Admin Dose 5 MG; Start 12/09/16 at 17:48 Amiodarone HCl (Cordarone) 200 mg BID PO Last administered on 12/24/16 08:26; Admin Dose 200 MG; Start 12/10/16 at 13:00 Hydralazine HCl (Apresoline) 10 mg Q6H PRN IV SBP>150mm hg Last administered on 12/19/16 08:50; Admin Dose 10 MG; Start 12/11/16 at 10:30 Morphine Sulfate 2 mg 2 mg Q2H PRN IV PAIN LEVEL 4-7; Start 12/13/16 at 10:00 Caspofungin/ Sodium Chloride ([place]anc[place]/NS) 250 ml @ 250 mls/hr Q24H IVPB Last administered on 12/23/16 12:55; Admin Dose 250 MLS/HR; Start 12/15/16 at 11:00 Metoprolol Tartrate 12.5 mg 12.5 mg BID PO Last administered on 12/24/16 08:26 ; Admin Dose 12.5 MG; Start 12/16/16 at 21:00 Linezolid (Zyvox 600mg/D5W (Pmx)) 300 ml @ 300 mls/hr Q12 IVPB Last administered on 12/24/16 11:00; Admin Dose 300 MLS/HR; Start 12/17/16 at 21:00 Insulin Glargine (Lantus) 19 unit DAILY@20 SC Last administered on 12/23/16 20 :43; Admin Dose 19 UNIT; Start 12/18/16 at 20:00 Pantoprazole (Protonix Tab) 40 mg DAILY@06 PO Last administered on 12/24/16 06 :17; Admin Dose 40 MG; Start 12/23/16 at 06:00 Aspirin (Ecotrin) 325 mg DAILY PO Last administered on 12/24/16 08:25; Admin Dose 325 MG; Start 12/24/16 at 09:00 TASHIA MCGARRY MD December 24, 2016 12:00
--- NOTE | 2016-12-24 12:01 | CONS ---
Date/Time of Note Date/Time of Note DATE: 12/24/16 TIME: 11:57 Assessment/Plan Assessment/Plan Chief Complaint/Hosp Course IMPRESSION: 1. Atrial fibrillation-currently in SR/ST with PAC's 2. Hypotension-resolved off of pat 3. Abnormal electrocardiogram with inferolateral T-wave inversions. 4. Respiratory failure-s/p intubation and remains 5. Nonhealing toe ulceration-vascular following 6. Peripheral arterial disease by arterial ultrasound of the lower extremities this admission. 7. Diabetes mellitus. 8. Fevers. 9. Positive troponin-downtrended 10.Bradycardia-mainly 50's Recc: -Tele -serial ecg -HD for volume removal as necessary -Continue asa 325mg now -Heparin currently held -Continue PO amio in attempt to maintain SR and for recurrent AF will resume systemic anticoagulation and will start SQ heparin for now -low dose BB as tolerated only following HR closely -Lexiscan today to asses significance of positive troponin/territory at risk with LHC/RHC likey when patient creatnine stable or definately to be continue of HD flame burner to truly assess degree of Problems: Consultation Date/Type/Reason Admit Date/Time Dec 02, 2016 at 21:01 Initial Consult Date 12/03/16 Type of Consultation: Cardiology Reason for Consultation /positive troponin Referring Provider: VIET PARKER MD Exam/Review of Systems Vital Signs Vitals Vital Signs Date Time Temp Pulse Resp B/P Pulse Ox O2 Delivery O2 Flow Rate FiO2 12/24/16 11:26 98.7 71 18 144/62 96 12/24/16 08:20 21 12/23/16 16:42 Room Air 12/22/16 21:30 1.0 Intake and Output 12/23/16 12/23/16 12/24/16 15:00 23:00 07:00 Intake Total 1360 ml Output Total 350 ml Balance 1010 ml Exam Review of Systems: CONSTITUTIONAL: No fevers, chills. PULMONARY: No sob CARDIOVASCULAR: No chest pain/palpitations GASTROINTESTINAL: No nausea/vomiting. GENITOURINARY: No hematuria/dysuria. MUSCULOSKELETAL: No myagias/arthalgias. PSYCHIATRIC: The patient denies depression. NEUROLOGIC: dizziness Constitutional: alert, oriented Head: normocephalic ENMT: mucosa pink and moist Neck: jvd (9 cm water), supple Respiratory: diminished breath sounds (at bases/B) Cardiovascular: other (2/6 SM to carotids), regular rate and rhythm Gastrointestinal: non-tender, soft Musculoskeletal: muscle tone (normal) Extremities: edema (none) Neurological: other Results Result Diagram: 12/24/16 0712/24/16 07 Results 24 hrs Laboratory Tests Test 12/23/16 12:04 12/23/16 17:22 12/23/16 20:33 12/24/16 07:05 Bedside Glucose 209 204 147 White Blood Count 8.6 Red Blood Count 3.22 L Hemoglobin 9.9 L Hematocrit 31.4 L Mean Corpuscular Volume 97.5 Mean Corpuscular Hemoglobin 30.7 Mean Corpuscular Hemoglobin Concent 31.5 L Red Cell Distribution Width 13.6 Platelet Count 186 Mean Platelet Volume 9.5 Neutrophils % 76.7 Lymphocytes % 10.5 L Monocytes % 9.2 Eosinophils % 1.9 Basophils % 0.6 Nucleated Red Blood Cells % 0.0 Neutrophils # 6.6 Lymphocytes # 0.9 Monocytes # 0.8 Eosinophils # 0.2 Basophils # 0.1 Nucleated Red Blood Cells # 0.0 Sodium Level 138 Potassium Level 4.3 Chloride Level 101 Carbon Dioxide Level 22 Anion Gap 19 H Blood Urea Nitrogen 55 H Creatinine 7.44 H Glucose Level 84 # Calcium Level 8.0 L Test 12/24/16 08:03 12/24/16 10:00 Bedside Glucose 93 Prothrombin Time 14.9 H Prothrombin Time Ratio 1.2 INR International Normalized Ratio 1.16 Activated Partial Thromboplast Time Pending Medications Medications Current Medications Diagnostic Test (Pha) (Accu-Chek) 1 ea 02 XX Last administered on 12/23/16 01: 50; Admin Dose 1 EA; Start 12/03/16 at 02:00 Ondansetron HCl (Zofran Inj) 4 mg Q6H PRN IV NAUSEA AND/OR VOMITING Last administered on 12/13/16 01:13; Admin Dose 4 MG; Start 12/02/16 at 22:30 Miscellaneous Information 1 ea NOTE XX ; Start 12/02/16 at 23:00 Glucose (Glutose) 15 gm Q15M PRN PO DECREASED GLUCOSE; Start 12/02/16 at 23:00 Glucose (Glutose) 22.5 gm Q15M PRN PO DECREASED GLUCOSE; Start 12/02/16 at 23: 00 Dextrose (D50w Syringe) 25 ml Q15M PRN IV DECREASED GLUCOSE Last administered on 12/10/16 05:52; Admin Dose 25 ML; Start 12/02/16 at 23:00 Dextrose (D50w Syringe) 50 ml Q15M PRN IV DECREASED GLUCOSE; Start 12/02/16 at 23:00 Glucagon (Glucagen) 1 mg Q15M PRN IM DECREASED GLUCOSE; Start 12/02/16 at 23:00 Glucose (Glutose) 15 gm Q15M PRN BUCCAL DECREASED GLUCOSE; Start 12/02/16 at 23 :00 Gabapentin (Neurontin) 800 mg TID PO Last administered on 12/08/16 20:33; Admin Dose 800 MG; Start 12/03/16 at 09:00; Status Future Hold Meclizine HCl (Antivert) 25 mg TID PRN PO dizziness Last administered on 12:02; Admin Dose 25 MG; Start 12/02/16 at 23:00 Terazosin HCl (Hytrin) 5 mg HS PO Last administered on 12/07/16 20:28; Admin Dose 5 MG; Start 12/03/16 at 21:00; Status Future Hold Acetaminophen/ Hydrocodone Bitart ([place] (5/325)) 1 tab Q6H PRN PO PAIN LEVEL 4 -7 Last administered on 12/23/16 22:14; Admin Dose 1 TAB; Start 12/02/16 at 23: 30 Acetaminophen (Tylenol Tab) 650 mg Q6H PRN PO PAIN AND OR ELEVATED TEMP Last administered on 12/18/16 10:44; Admin Dose 650 MG; Start 12/02/16 at 23:30 Docusate Sodium (Colace) 100 mg BID PO Last administered on 12/08/16 20:32; Admin Dose 100 MG; Start 12/03/16 at 09:00; Status Future Hold Zolpidem Tartrate (Ambien) 5 mg HS PRN PO INSOMNIA Last administered on 00:45; Admin Dose 5 MG; Start 12/02/16 at 23:30 Benazepril HCl (Lotensin) 10 mg DAILY PO Last administered on 12/07/16 08:26; Admin Dose 10 MG; Start 12/04/16 at 09:00; Status Future Hold Collagenase (Santyl) 1 applic DAILY TOP Last administered on 12/24/16 08:33; Admin Dose 1 APPLIC; Start 12/07/16 at 16:00 Lorazepam (Ativan) 2 mg Q2 PRN IV AGITATION/ANXIETY Last administered on 21:54; Admin Dose 2 MG; Start 12/09/16 at 09:30 Morphine Sulfate (morphine) 2 mg Q2H PRN IV PAIN Last administered on 12/20/16 03:22; Admin Dose 2 MG; Start 12/09/16 at 09:30 Acetaminophen 650 mg 650 mg Q6H PRN MT ELEVATED TEMPERATURE Last administered on 12/09/16 17:53; Admin Dose 650 MG; Start 12/09/16 at 17:00 Piperacillin Sod/ Tazobactam Sod (Zosyn 2.25gm/ 50ml (Pmx)) 50 ml @ 100 mls/hr Q12 IVPB Last administered on 12/24/16 08:24; Admin Dose 100 MLS/HR; Start at 21:00 Metoprolol Tartrate (Lopressor) 5 mg Q4H PRN IV HR>100 Last administered on 22:23; Admin Dose 5 MG; Start 12/09/16 at 17:48 Amiodarone HCl (Cordarone) 200 mg BID PO Last administered on 12/24/16 08:26; Admin Dose 200 MG; Start 12/10/16 at 13:00 Hydralazine HCl (Apresoline) 10 mg Q6H PRN IV SBP>150mm hg Last administered on 12/19/16 08:50; Admin Dose 10 MG; Start 12/11/16 at 10:30 Morphine Sulfate 2 mg 2 mg Q2H PRN IV PAIN LEVEL 4-7; Start 12/13/16 at 10:00 Caspofungin/ Sodium Chloride (Cancidas/NS) 250 ml @ 250 mls/hr Q24H IVPB Last administered on 12/23/16 12:55; Admin Dose 250 MLS/HR; Start 12/15/16 at 11:00 Metoprolol Tartrate 12.5 mg 12.5 mg BID PO Last administered on 12/24/16 08:26 ; Admin Dose 12.5 MG; Start 12/16/16 at 21:00 Linezolid (Zyvox 600mg/D5W (Pmx)) 300 ml @ 300 mls/hr Q12 IVPB Last administered on 12/24/16 11:00; Admin Dose 300 MLS/HR; Start 12/17/16 at 21:00 Insulin Glargine (Lantus) 19 unit DAILY@20 SC Last administered on 12/23/16 20 :43; Admin Dose 19 UNIT; Start 12/18/16 at 20:00 Pantoprazole (Protonix Tab) 40 mg DAILY@06 PO Last administered on 12/24/16 06 :17; Admin Dose 40 MG; Start 12/23/16 at 06:00 Aspirin (Ecotrin) 325 mg DAILY PO Last administered on 12/24/16 08:25; Admin Dose 325 MG; Start 12/24/16 at 09:00 VICENTE LESLIE December 24, 2016 12:01
[2016-12-24 12:17] LABS: PARTIAL THROMBOPLASTIN TIME 74.8 Sec (25.0-35.0)
--- NOTE | 2016-12-24 12:25 | CARRPT ---
DATE OF PROCEDURE: 12/24/2016 LEXISCAN CARDIOLITE STRESS TEST, ELECTROCARDIOGRAM PORTION INDICATION: Positive troponin, assess significance. REFERRING PHYSICIAN: Zhou Heredia MD BASELINE VITAL SIGNS AND ELECTROCARDIOGRAM: Pulse 72, blood pressure 145/70. Electrocardiogram rev eals normal sinus rhythm, rate of 71, normal axis, normal intervals, with inferior and lateral T-wav e inversion. PROCEDURE: The patient underwent standard Lexiscan infusion protocol over 10 seconds followed by ra diolabeled tracer. The patient's test was stopped due to completion of protocol. Maximal achieved blood pressure during the test 155/72. Maximal achieved heart rate during the test 80. ELECTROCARDIOGRAM FINDINGS: The patient did not develop any new Lexiscan-induced ST or T-wave lao es from baseline abnormalities. No documented PACs or PVCs. SYMPTOMS: The patient had no complaints of chest pain or shortness of breath during stress testing. IMPRESSION: 1. No Lexiscan-induced ST or T-wave changes from baseline abnormalities that are diagnostic for car diac ischemia. 2. No complaints of chest pain or shortness of breath during stress testing. 3. No documented premature ventricular contractions during stress testing. 4. Report of nuclear images to follow in separate dictation. Dictated By: VICENTE RUFFIN/MICHELLE Conf#: [id number] DID#: [id number] CC: ZHOU HEREDIA MD;*EndCC*
--- NOTE | 2016-12-24 13:06 | RADRPT ---
PROCEDURE: Lexiscan myocardial perfusion study CLINICAL INDICATION: 66 -year-old patient complaining of chest pain. TECHNIQUE: Lexiscan 0.4 mg intravenously separate acquisition gated myocardial perfusion SPECT usi ng Tc 99m Myoview 30.4 mCi intravenously at stress and Tc-99m Myoview, 9.7 mCi intravenously at rest was performed using the rest/stress sequence. Poststress Myoview SPECT images were obtained in the supine position. COMPARISON: No prior studies. FINDINGS: Perfusion images reveal a small size mild to moderate in degree nonreversible perfusion defect in th e inferoapical and inferior wall. Lexiscan post stress gated SPECT images demonstrate mild hypokinesis of the left ventricle. IMPRESSION: 1. The type and distribution of the scintigraphic abnormalities are most consistent with a small no nreversible perfusion abnormality in the inferoapical and inferior carver. 2. Mild hypokinesis of the left ventricle. 3. The left ventricle ejection fraction at stress is 36%. A call report was made to Dr. Cobian at 01:00 p.m. on December 24, 2016. RPTAT: HH .Rehana Conklin MD, Date Time Electronically viewed and signed by .Rehana Conklin MD, on 12/24/2016 13:06 .Angélica/
[2016-12-24] MEDS: CASPOFUNGIN 50 MG in SOD CHLORIDE 0.9% 250 ML IVPB SCH (13:36)
--- NOTE | 2016-12-24 18:25 | PN ---
Date/Time of Note Date/Time of Note DATE: 12/24/16 TIME: 18:20 Assessment/Plan VTE Prophylaxis VTE Prophylaxis Intervention: SCD's Lines/Catheters IV [facility] Urinary Cath still in place: Yes Reason Cath still needed: urinary retention Assessment/Plan Chief Complaint/Hosp Course Assessment/Plan - Acute respiratory failure secondary to pulmonary edema, resolved. Dr. Alvarez is following from pulmonology standpoint. - Bilateral pleural effusion, this post right sided thoracentesis with removal of 900 cc of fluid. - Acute renal failure, Dr. Remy is following in nephrology consultation. Continue hemodialysis per nephrology. Pending permacath placement by vascular surgery. - Acute to subacute right occipital lobe ischemic infarct per CT, Dr Morris is following in neurology consultation. - Paroxysmal atrial fibrillation and positive troponin. Dr. Cobian is following and cardiology consultation. Status post Lexiscan on 12/24. - Fungemia, om Caspofungin. Dr. Pascual is following in infection disease consultation. - Diabetic foot ulcer of the left foot, Dr Lin is following in podiatry consultation. - Cellulitis of left foot, 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 and left fourth proximal phalanx per bone scan. Continue antibiotics per ID. - Aortic stenosis - Diastolic dysfunction congestive heart failure with preserved ejection fraction of 60%. - DM, Hgb A1c is 8.7, continue Lantus and pre-meal NovoLog and NovoLog per sliding scale. -Traumatic hematuria,, resolved. Dr. Grey urology consult is appreciated. Further recommendations based on clinical course. Plan of care discussed with Dr. Heredia. Problems: Subjective 24 Hr Interval Summary Free Text/Dictation Patient is currently awake alert, patient had an episode Tuesday night when patient get confused after hemodialysis is removed PICC line and [place] and had hematuria which is currently resolved. We will continue to monitor hemoglobin and hematocrit. Exam/Review of Systems Vital Signs Vitals Vital Signs Date Time Temp Pulse Resp B/P Pulse Ox O2 Delivery O2 Flow Rate FiO2 12/24/16 16:59 87 12/24/16 16:08 98.9 18 124/70 91 12/24/16 14:41 21 12/23/16 16:42 Room Air 12/22/16 21:30 1.0 Intake and Output 12/23/16 12/23/16 12/24/16 15:00 23:00 07:00 Intake Total 1360 ml Output Total 350 ml Balance 1010 ml Exam Constitutional: awake, alert Psych: no complaints Head: atraumatic, normocephalic Eyes: nl conjunctiva ENMT: nl external ears & nose Neck: non-tender, supple Respiratory: clear to auscultation, normal air movement Cardiovascular: nl pulses, regular rate and rhythm, systolic murmur Gastrointestinal: non-tender, soft Musculoskeletal: nl extremities to inspection Extremities: normal pulses Neurological: alert *3 Skin: nl turgor, left big toe ulcer. Results Result Diagram: 12/24/1670412/24/16704 Results 24 hrs Laboratory Tests Test 12/23/16 20:33 12/24/16 07:05 12/24/16 08:03 12/24/16 10:00 Bedside Glucose 147 93 White Blood Count 8.6 Red Blood Count 3.22 L Hemoglobin 9.9 L Hematocrit 31.4 L Mean Corpuscular Volume 97.5 Mean Corpuscular Hemoglobin 30.7 Mean Corpuscular Hemoglobin Concent 31.5 L Red Cell Distribution Width 13.6 Platelet Count 186 Mean Platelet Volume 9.5 Neutrophils % 76.7 Lymphocytes % 10.5 L Monocytes % 9.2 Eosinophils % 1.9 Basophils % 0.6 Nucleated Red Blood Cells % 0.0 Neutrophils # 6.6 Lymphocytes # 0.9 Monocytes # 0.8 Eosinophils # 0.2 Basophils # 0.1 Nucleated Red Blood Cells # 0.0 Sodium Level 138 Potassium Level 4.3 Chloride Level 101 Carbon Dioxide Level 22 Anion Gap 19 H Blood Urea Nitrogen 55 H Creatinine 7.44 H Glucose Level 84 # Calcium Level 8.0 L Prothrombin Time 14.9 H Prothrombin Time Ratio 1.2 INR International Normalized Ratio 1.16 Activated Partial Thromboplast Time 74.8 *H Test 12/24/16 13:27 12/24/16 17:25 Bedside Glucose 109 263 H Medications Medications Current Medications Diagnostic Test (Pha) (Accu-Chek) 1 ea 02 XX Last administered on 12/23/16t 01: 50; Admin Dose 1 EA; Start 12/03/16 at 02:00 Ondansetron HCl (Zofran Inj) 4 mg Q6H PRN IV NAUSEA AND/OR VOMITING Last administered on 12/13/16 01:13; Admin Dose 4 MG; Start 12/02/16 at 22:30 Miscellaneous Information 1 ea NOTE XX ; Start 12/02/16 at 23:00 Glucose (Glutose) 15 gm Q15M PRN PO DECREASED GLUCOSE; Start 12/02/16 at 23:00 Glucose (Glutose) 22.5 gm Q15M PRN PO DECREASED GLUCOSE; Start 12/02/16 at 23: 00 Dextrose (D50w Syringe) 25 ml Q15M PRN IV DECREASED GLUCOSE Last administered on 12/10/16 05:52; Admin Dose 25 ML; Start 12/02/16 at 23:00 Dextrose (D50w Syringe) 50 ml Q15M PRN IV DECREASED GLUCOSE; Start 12/02/16 at 23:00 Glucagon (Glucagen) 1 mg Q15M PRN IM DECREASED GLUCOSE; Start 12/02/16 at 23:00 Glucose (Glutose) 15 gm Q15M PRN BUCCAL DECREASED GLUCOSE; Start 12/02/16 at 23 :00 Gabapentin (Neurontin) 800 mg TID PO Last administered on 12/08/16 20:33; Admin Dose 800 MG; Start 12/03/16 at 09:00; Status Future Hold Meclizine HCl (Antivert) 25 mg TID PRN PO dizziness Last administered on 12:02; Admin Dose 25 MG; Start 12/02/16 at 23:00 Terazosin HCl (Hytrin) 5 mg HS PO Last administered on 12/07/16 20:28; Admin Dose 5 MG; Start 12/03/16 at 21:00; Status Future Hold Acetaminophen/ Hydrocodone Bitart ([place] (5/325)) 1 tab Q6H PRN PO PAIN LEVEL 4 -7 Last administered on 12/23/16 22:14; Admin Dose 1 TAB; Start 12/02/16 at 23: 30 Acetaminophen (Tylenol Tab) 650 mg Q6H PRN PO PAIN AND OR ELEVATED TEMP Last administered on 12/18/16 10:44; Admin Dose 650 MG; Start 12/02/16 at 23:30 Docusate Sodium (Colace) 100 mg BID PO Last administered on 12/08/16 20:32; Admin Dose 100 MG; Start 12/03/16 at 09:00; Status Future Hold Zolpidem Tartrate (Ambien) 5 mg HS PRN PO INSOMNIA Last administered on 00:45; Admin Dose 5 MG; Start 12/02/16 at 23:30 Benazepril HCl (Lotensin) 10 mg DAILY PO Last administered on 12/07/16 08:26; Admin Dose 10 MG; Start 12/04/16 at 09:00; Status Future Hold Collagenase (Santyl) 1 applic DAILY TOP Last administered on 12/24/16 08:33; Admin Dose 1 APPLIC; Start 12/07/16 at 16:00 Lorazepam (Ativan) 2 mg Q2 PRN IV AGITATION/ANXIETY Last administered on 21:54; Admin Dose 2 MG; Start 12/09/16 at 09:30 Morphine Sulfate (morphine) 2 mg Q2H PRN IV PAIN Last administered on 12/20/16 03:22; Admin Dose 2 MG; Start 12/09/16 at 09:30 Acetaminophen 650 mg 650 mg Q6H PRN OR ELEVATED TEMPERATURE Last administered on 12/09/16 17:53; Admin Dose 650 MG; Start 12/09/16 at 17:00 Piperacillin Sod/ Tazobactam Sod (Zosyn 2.25gm/ 50ml (Pmx)) 50 ml @ 100 mls/hr Q12 IVPB Last administered on 12/24/16 08:24; Admin Dose 100 MLS/HR; Start at 21:00 Metoprolol Tartrate (Lopressor) 5 mg Q4H PRN IV HR>100 Last administered on 22:23; Admin Dose 5 MG; Start 12/09/16 at 17:48 Amiodarone HCl (Cordarone) 200 mg BID PO Last administered on 12/24/16 08:26; Admin Dose 200 MG; Start 12/10/16 at 13:00 Hydralazine HCl (Apresoline) 10 mg Q6H PRN IV SBP>150mm hg Last administered on 12/19/16 08:50; Admin Dose 10 MG; Start 12/11/16 at 10:30 Morphine Sulfate 2 mg 2 mg Q2H PRN IV PAIN LEVEL 4-7; Start 12/13/16 at 10:00 Caspofungin/ Sodium Chloride (Cancidas/NS) 250 ml @ 250 mls/hr Q24H IVPB Last administered on 12/24/16 13:36; Admin Dose 250 MLS/HR; Start 12/15/16 at 11:00 Metoprolol Tartrate 12.5 mg 12.5 mg BID PO Last administered on 12/24/16 08:26 ; Admin Dose 12.5 MG; Start 12/16/16 at 21:00 Linezolid (Zyvox 600mg/D5W (Pmx)) 300 ml @ 300 mls/hr Q12 IVPB Last administered on 12/24/16 11:00; Admin Dose 300 MLS/HR; Start 12/17/16 at 21:00 Insulin Glargine (Lantus) 19 unit DAILY@20 SC Last administered on 12/23/16 20 :43; Admin Dose 19 UNIT; Start 12/18/16 at 20:00 Pantoprazole (Protonix Tab) 40 mg DAILY@06 PO Last administered on 12/24/16 06 :17; Admin Dose 40 MG; Start 12/23/16 at 06:00 Aspirin (Ecotrin) 325 mg DAILY PO Last administered on 12/24/16 08:25; Admin Dose 325 MG; Start 12/24/16 at 09:00 KIMBERLY NOYOLA December 24, 2016 18:25
--- NOTE | 2016-12-24 18:56 | CONS ---
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 Blood cultures from HD catheter on 12/13/2016 are negative to date. 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 superficial swab grew inna only - right pleural effusion s/p thoracentesis with .9L removed on 12/16/2016; (Note: there is no pleural fluid cx since orders were placed after Right thoracentesis , and Left thoracentesis was not performed on 12/17/16 d/t insufficient fluid) - funguria - ARANZA, on HD from 12/09/2016 - A fib; now in SR - troponin+ - severe , EF 45% per TTE 12/17/16 - DM - Hgb A1c 8.7% - HTN associated with DM recommendations: - continue caspofungin (12/14/2016-) - continue renally dosed pip/tazo (12/03/2016) empirically for diabetic foot infection, and sepsis - OK to d/c linezolid (12/13/2016-). No MDR Gram positive bacteria are found - Ultimately, Pt needs 6 weeks of antibiotics to treat 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 and left fourth proximal phalanx: 12/03/2016 through 01/15/2017 management d/w Pt, his son, and RN Problems: Consultation Date/Type/Reason Admit Date/Time Dec 02, 2016 at 21:01 Initial Consult Date 12/03/16 Type of Consultation: ID Referring Provider: VIET PARKER MD 24 HR Interval Summary Constitutional: no complaints Detailed Summary Eyes: no complaints ENT: no complaints Respiratory: no complaints Cardiovascular: no complaints Gastrointestinal: no complaints Genitourinary: hematuria (reported in EMR but Pt's son said it resolved) Musculoskeletal: no complaints Skin: skin lesions (L great toe) Neurologic: other (no neuropathy) Exam/Review of Systems Vital Signs Vitals Vital Signs Date Time Temp Pulse Resp B/P Pulse Ox O2 Delivery O2 Flow Rate FiO2 12/24/16 16:59 87 12/24/16 16:08 98.9 18 124/70 91 12/24/16 14:41 21 12/23/16 16:42 Room Air 12/22/16 21:30 1.0 Intake and Output 12/23/16 12/23/16 12/24/16 15:00 23:00 07:00 Intake Total 1360 ml Output Total 350 ml Balance 1010 ml Exam Constitutional: alert, frail Psych: no complaints Head: atraumatic, normocephalic Eyes: nl conjunctiva, nl lids ENMT: nl external ears & nose, nl nasal mucosa & septum Respiratory: clear to auscultation, normal air movement Cardiovascular: nl pulses, regular rate and rhythm, systolic murmur Gastrointestinal: nl liver, spleen, non-tender, soft Musculoskeletal: nl extremities to inspection Extremities: No edema Neurological: nl mental status, nl speech, nl strength, No numbness Skin: rash or lesions (dry eschar on L platar 1st toe, and L lateral 1st toe) Results Result Diagram: 12/24/1670412/24/16704 Results 24 hrs Laboratory Tests Test 12/23/16 20:33 12/24/16 07:05 12/24/16 08:03 12/24/16 10:00 Bedside Glucose 147 93 White Blood Count 8.6 Red Blood Count 3.22 L Hemoglobin 9.9 L Hematocrit 31.4 L Mean Corpuscular Volume 97.5 Mean Corpuscular Hemoglobin 30.7 Mean Corpuscular Hemoglobin Concent 31.5 L Red Cell Distribution Width 13.6 Platelet Count 186 Mean Platelet Volume 9.5 Neutrophils % 76.7 Lymphocytes % 10.5 L Monocytes % 9.2 Eosinophils % 1.9 Basophils % 0.6 Nucleated Red Blood Cells % 0.0 Neutrophils # 6.6 Lymphocytes # 0.9 Monocytes # 0.8 Eosinophils # 0.2 Basophils # 0.1 Nucleated Red Blood Cells # 0.0 Sodium Level 138 Potassium Level 4.3 Chloride Level 101 Carbon Dioxide Level 22 Anion Gap 19 H Blood Urea Nitrogen 55 H Creatinine 7.44 H Glucose Level 84 # Calcium Level 8.0 L Prothrombin Time 14.9 H Prothrombin Time Ratio 1.2 INR International Normalized Ratio 1.16 Activated Partial Thromboplast Time 74.8 *H Test 12/24/16 13:27 12/24/16 17:25 Bedside Glucose 109 263 H Medications Medications Current Medications Diagnostic Test (Pha) (Accu-Chek) 1 ea 02 XX Last administered on 12/23/16 01: 50; Admin Dose 1 EA; Start 12/03/16 at 02:00 Ondansetron HCl (Zofran Inj) 4 mg Q6H PRN IV NAUSEA AND/OR VOMITING Last administered on 12/13/16 01:13; Admin Dose 4 MG; Start 12/02/16 at 22:30 Miscellaneous Information 1 ea NOTE XX ; Start 12/02/16 at 23:00 Glucose (Glutose) 15 gm Q15M PRN PO DECREASED GLUCOSE; Start 12/02/16 at 23:00 Glucose (Glutose) 22.5 gm Q15M PRN PO DECREASED GLUCOSE; Start 12/02/16 at 23: 00 Dextrose (D50w Syringe) 25 ml Q15M PRN IV DECREASED GLUCOSE Last administered on 12/10/16 05:52; Admin Dose 25 ML; Start 12/02/16 at 23:00 Dextrose (D50w Syringe) 50 ml Q15M PRN IV DECREASED GLUCOSE; Start 12/02/16 at 23:00 Glucagon (Glucagen) 1 mg Q15M PRN IM DECREASED GLUCOSE; Start 12/02/16 at 23:00 Glucose (Glutose) 15 gm Q15M PRN BUCCAL DECREASED GLUCOSE; Start 12/02/16 at 23 :00 Gabapentin (Neurontin) 800 mg TID PO Last administered on 12/08/16 20:33; Admin Dose 800 MG; Start 12/03/16 at 09:00; Status Future Hold Meclizine HCl (Antivert) 25 mg TID PRN PO dizziness Last administered on 12:02; Admin Dose 25 MG; Start 12/02/16 at 23:00 Terazosin HCl (Hytrin) 5 mg HS PO Last administered on 12/07/16 20:28; Admin Dose 5 MG; Start 12/03/16 at 21:00; Status Future Hold Acetaminophen/ Hydrocodone Bitart ([place] (5/325)) 1 tab Q6H PRN PO PAIN LEVEL 4 -7 Last administered on 12/23/16 22:14; Admin Dose 1 TAB; Start 12/02/16 at 23: 30 Acetaminophen (Tylenol Tab) 650 mg Q6H PRN PO PAIN AND OR ELEVATED TEMP Last administered on 12/18/16 10:44; Admin Dose 650 MG; Start 12/02/16 at 23:30 Docusate Sodium (Colace) 100 mg BID PO Last administered on 12/08/16 20:32; Admin Dose 100 MG; Start 12/03/16 at 09:00; Status Future Hold Zolpidem Tartrate (Ambien) 5 mg HS PRN PO INSOMNIA Last administered on 00:45; Admin Dose 5 MG; Start 12/02/16 at 23:30 Benazepril HCl (Lotensin) 10 mg DAILY PO Last administered on 12/07/16 08:26; Admin Dose 10 MG; Start 12/04/16 at 09:00; Status Future Hold Collagenase (Santyl) 1 applic DAILY TOP Last administered on 12/24/16 08:33; Admin Dose 1 APPLIC; Start 12/07/16 at 16:00 Lorazepam (Ativan) 2 mg Q2 PRN IV AGITATION/ANXIETY Last administered on 21:54; Admin Dose 2 MG; Start 12/09/16 at 09:30 Morphine Sulfate (morphine) 2 mg Q2H PRN IV PAIN Last administered on 12/20/16 03:22; Admin Dose 2 MG; Start 12/09/16 at 09:30 Acetaminophen 650 mg 650 mg Q6H PRN [place] ELEVATED TEMPERATURE Last administered on 12/09/16 17:53; Admin Dose 650 MG; Start 12/09/16 at 17:00 Piperacillin Sod/ Tazobactam Sod (Zosyn 2.25gm/ 50ml (Pmx)) 50 ml @ 100 mls/hr Q12 IVPB Last administered on 12/24/16 08:24; Admin Dose 100 MLS/HR; Start at 21:00 Metoprolol Tartrate (Lopressor) 5 mg Q4H PRN IV HR>100 Last administered on 22:23; Admin Dose 5 MG; Start 12/09/16 at 17:48 Amiodarone HCl (Cordarone) 200 mg BID PO Last administered on 12/24/16 08:26; Admin Dose 200 MG; Start 12/10/16 at 13:00 Hydralazine HCl (Apresoline) 10 mg Q6H PRN IV SBP>150mm hg Last administered on 12/19/16 08:50; Admin Dose 10 MG; Start 12/11/16 at 10:30 Morphine Sulfate 2 mg 2 mg Q2H PRN IV PAIN LEVEL 4-7; Start 12/13/16 at 10:00 Caspofungin/ Sodium Chloride (Cancidas/NS) 250 ml @ 250 mls/hr Q24H IVPB Last administered on 12/24/16 13:36; Admin Dose 250 MLS/HR; Start 12/15/16 at 11:00 Metoprolol Tartrate 12.5 mg 12.5 mg BID PO Last administered on 12/24/16 08:26 ; Admin Dose 12.5 MG; Start 12/16/16 at 21:00 Linezolid (Zyvox 600mg/D5W (Pmx)) 300 ml @ 300 mls/hr Q12 IVPB Last administered on 12/24/16 11:00; Admin Dose 300 MLS/HR; Start 12/17/16 at 21:00 Insulin Glargine (Lantus) 19 unit DAILY@20 SC Last administered on 12/23/16 20 :43; Admin Dose 19 UNIT; Start 12/18/16 at 20:00 Pantoprazole (Protonix Tab) 40 mg DAILY@06 PO Last administered on 12/24/16 06 :17; Admin Dose 40 MG; Start 12/23/16 at 06:00 Aspirin (Ecotrin) 325 mg DAILY PO Last administered on 12/24/16 08:25; Admin Dose 325 MG; Start 12/24/16 at 09:00 CHRISTY LOPEZ M.D. December 24, 2016 18:56
[2016-12-24] MEDS: INSULIN GLARGINE [LANtus] 3 ML PEN SC SCH (20:55)
[2016-12-24] MEDS ORDERED: INSULIN GLARGINE [LANtus] 3 ML PEN SC ONE (22:00)
[2016-12-25] VITALS (18 sets, daily range): BP systolic 118–169; BP diastolic 59–81; PULSE 67–82; RESP 16–24
[2016-12-25] MEDS ORDERED: ACCU-CHEK XX SCH (02:00)
[2016-12-25] MEDS: ACCU-CHEK XX SCH (02:40)
[2016-12-25] MEDS: PANTOPRAZOLE (EC) 40 MG TAB PO SCH (06:18)
[2016-12-25] MEDS ORDERED: INSULIN ASPART [NOVOLOG] 3 ML PEN SC SCH (08:00)
[2016-12-25] MEDS: ALBUTEROL/IPRATROPIUM (NEB) 3 ML AMP HHN SCH ×4 (08:00→20:48)
[2016-12-25 08:04] LABS: ADD SCAN DIFF NO
[2016-12-25 08:10] LABS: BASOPHILS % 0.4 % (0.0-2.0); EOSINOPHILS # 0.1 10^3/ul (0.0-0.5); EOSINOPHILS % 1.4 % (0.0-7.0); HEMATOCRIT 30.5 % (42.0-52.0); HEMOGLOBIN 9.7 g/dl (14.0-18.0); LYMPHOCYTES # 0.7 10^3/ul (0.8-2.9); LYMPHOCYTES % 6.9 % (15.0-51.0); MEAN CORPUSCULAR HEMOGLOBIN 30.8 pg (29.0-33.0); MEAN CORPUSCULAR HGB CONC 31.8 g/dl (32.0-37.0); MEAN CORPUSCULAR VOLUME 96.8 fl (82.0-101.0); MEAN PLATELET VOLUME 9.6 fl (7.4-10.4); MONOCYTE # 0.9 10^3/ul (0.3-0.9); NEUTROPHIL # 8.2 10^3/ul (1.6-7.5); NEUTROPHILS % 81.1 % (39.0-77.0); PLATELET COUNT 214 10^3/UL (140-415); RED BLOOD COUNT 3.15 10^6/ul (4.70-6.10); RED CELL DISTRIBUTION WIDTH 13.7 % (11.5-14.5); WHITE BLOOD COUNT 10.1 10^3/ul (4.8-10.8)
[2016-12-25 08:41] LABS: CALCIUM 8.2 mg/dl (8.4-10.2); CREATININE 7.95 mg/dl (0.61-1.24)
[2016-12-25] MEDS: PIPER-TAZO 2.25 GM (PMX) 50 ML IVPB SCH ×2 (09:37→20:54)
[2016-12-25] MEDS: AMIODARONE 200 MG TAB PO SCH ×2 (09:37→21:31)
[2016-12-25] MEDS: METOPROLOL 25 MG TAB PO SCH ×2 (09:37→21:31)
[2016-12-25] MEDS: MECLIZINE 25 MG TAB PO PRN (09:37)
[2016-12-25] MEDS: ASPIRIN (EC) 325 MG TAB PO SCH (09:38)
[2016-12-25] MEDS: COLLAGENASE 30 GM TUBE TOP SCH (09:38)
[2016-12-25] MEDS: INSULIN ASPART [NOVOLOG] 3 ML PEN SC SCH ×3 (09:40→17:09)
[2016-12-25] MEDS: CASPOFUNGIN 50 MG in SOD CHLORIDE 0.9% 250 ML IVPB SCH (11:13)
--- NOTE | 2016-12-25 11:28 | CONS ---
Date/Time of Note Date/Time of Note DATE: 12/25/16 TIME: 11:24 Assessment/Plan Assessment/Plan Additional Assessment/Plan 1. Oliguric to Anuric Acute kidney injury 2/2 ATN- started on HD on 12/09/16 for acute fluid overload and Pulmonary edema 2. acute resp failure intubated on ventilator -now extubated on 12/10/2016- then again reintubated on 12/13/2016- now self extubated on 12/18/16 3. Moderate to large right pleural effusion s/p Right thoracentesis 900 cc drained on 12/16/16 2. Left foot diabetic ulcer/cellulitis currently on IV antibiotics, Zosyn and vancomycin. 3. History of diabetes mellitus, insulin-dependent with lower extremity neuropathy. 4. History of hypertension. 5. History of aortic stenosis with diastolic dysfunction with ejection fraction 60% on echocardiogram. PLAN: s/p right thoracentesis 900 cc drained on 12/16/16, Us showed small left pleural effusion No Plan for HD today , will plan for HD tomorrow, S/p lexiscan showed non reversible perfusion defect with EF39% - also discussed with family about Permacath placement - possible plan for permacath on Tuesday follow up blood cx has been negative to date from 12/13/16 will do CXR for HD placement after permacath placement case management for HD placement will continue to follow up Consultation Date/Type/Reason Admit Date/Time Dec 02, 2016 at 21:01 Initial Consult Date Type of Consultation: NEPHROLOGY Referring Provider: VIET PARKER MD 24 HR Interval Summary Free Text/Dictation s/p lexiscan showed non reversible perfusion defect with EF 39%,BP stable Exam/Review of Systems Vital Signs Vitals Vital Signs Date Time Temp Pulse Resp B/P Pulse Ox O2 Delivery O2 Flow Rate FiO2 12/25/16 11:10 79 98 30 12/25/16 07:37 98.4 18 151/67 12/23/16 16:42 Room Air 12/22/16 21:30 1.0 Intake and Output 12/24/16 12/24/16 12/25/16 15:00 23:00 07:00 Intake Total 500 ml 840 ml 120 ml Output Total 3500 ml 300 ml 125 ml Balance -3000 ml 540 ml -5 ml Exam Constitutional: awake, alert Respiratory: clear to auscultation, normal air movement Cardiovascular: nl pulses, regular rate and rhythm, systolic murmur Gastrointestinal: non-tender, soft Musculoskeletal: nl extremities to inspection Extremities: normal pulses Neurological: alert *3 Skin: nl turgor, left big toe ulcer. Results Result Diagram: 12/25/1627 12/25/16726 Results 24 hrs Laboratory Tests Test 12/24/16 13:27 12/24/16 17:25 12/24/16 20:50 12/25/16 01:45 Bedside Glucose 109 263 H 302 H 279 H Test 12/25/16 07:27 12/25/16 09:13 12/25/16 11:11 White Blood Count 10.1 Red Blood Count 3.15 L Hemoglobin 9.7 L Hematocrit 30.5 L Mean Corpuscular Volume 96.8 Mean Corpuscular Hemoglobin 30.8 Mean Corpuscular Hemoglobin Concent 31.8 L Red Cell Distribution Width 13.7 Platelet Count 214 Mean Platelet Volume 9.6 Neutrophils % 81.1 H Lymphocytes % 6.9 L Monocytes % 9.0 Eosinophils % 1.4 Basophils % 0.4 Nucleated Red Blood Cells % 0.0 Neutrophils # 8.2 H Lymphocytes # 0.7 L Monocytes # 0.9 Eosinophils # 0.1 Basophils # 0.0 Nucleated Red Blood Cells # 0.0 Sodium Level 136 Potassium Level 4.0 Chloride Level 101 Carbon Dioxide Level 24 Anion Gap 15 Blood Urea Nitrogen 52 H Creatinine 7.95 H Glucose Level 160 Calcium Level 8.2 L Bedside Glucose 156 127 Medications Medications Current Medications Ondansetron HCl (Zofran Inj) 4 mg Q6H PRN IV NAUSEA AND/OR VOMITING Last administered on 12/13/16 01:13; Admin Dose 4 MG; Start 12/02/16 at 22:30 Miscellaneous Information 1 ea NOTE XX ; Start 12/02/16 at 23:00 Glucose (Glutose) 15 gm Q15M PRN PO DECREASED GLUCOSE; Start 12/02/16 at 23:00 Glucose (Glutose) 22.5 gm Q15M PRN PO DECREASED GLUCOSE; Start 12/02/16 at 23: 00 Dextrose (D50w Syringe) 25 ml Q15M PRN IV DECREASED GLUCOSE Last administered on 12/10/16 05:52; Admin Dose 25 ML; Start 12/02/16 at 23:00 Dextrose (D50w Syringe) 50 ml Q15M PRN IV DECREASED GLUCOSE; Start 12/02/16 at 23:00 Glucagon (Glucagen) 1 mg Q15M PRN IM DECREASED GLUCOSE; Start 12/02/16 at 23:00 Glucose (Glutose) 15 gm Q15M PRN BUCCAL DECREASED GLUCOSE; Start 12/02/16 at 23 :00 Gabapentin (Neurontin) 800 mg TID PO Last administered on 12/08/16 20:33; Admin Dose 800 MG; Start 12/03/16 at 09:00; Status Future Hold Meclizine HCl (Antivert) 25 mg TID PRN PO dizziness Last administered on 09:37; Admin Dose 25 MG; Start 12/02/16 at 23:00 Terazosin HCl (Hytrin) 5 mg HS PO Last administered on 12/07/16 20:28; Admin Dose 5 MG; Start 12/03/16 at 21:00; Status Future Hold Acetaminophen/ Hydrocodone Bitart ([place] (5/325)) 1 tab Q6H PRN PO PAIN LEVEL 4 -7 Last administered on 12/23/16 22:14; Admin Dose 1 TAB; Start 12/02/16 at 23: 30 Acetaminophen (Tylenol Tab) 650 mg Q6H PRN PO PAIN AND OR ELEVATED TEMP Last administered on 12/18/16 10:44; Admin Dose 650 MG; Start 12/02/16 at 23:30 Docusate Sodium (Colace) 100 mg BID PO Last administered on 12/08/16 20:32; Admin Dose 100 MG; Start 12/03/16 at 09:00; Status Future Hold Zolpidem Tartrate (Ambien) 5 mg HS PRN PO INSOMNIA Last administered on 00:45; Admin Dose 5 MG; Start 12/02/16 at 23:30 Benazepril HCl (Lotensin) 10 mg DAILY PO Last administered on 12/07/16 08:26; Admin Dose 10 MG; Start 12/04/16 at 09:00; Status Future Hold Collagenase (Santyl) 1 applic DAILY TOP Last administered on 12/25/16 09:38; Admin Dose 1 APPLIC; Start 12/07/16 at 16:00 Lorazepam (Ativan) 2 mg Q2 PRN IV AGITATION/ANXIETY Last administered on 21:54; Admin Dose 2 MG; Start 12/09/16 at 09:30 Morphine Sulfate (morphine) 2 mg Q2H PRN IV PAIN Last administered on 12/20/16 03:22; Admin Dose 2 MG; Start 12/09/16 at 09:30 Acetaminophen 650 mg 650 mg Q6H PRN [place] ELEVATED TEMPERATURE Last administered on 12/09/16 17:53; Admin Dose 650 MG; Start 12/09/16 at 17:00 Piperacillin Sod/ Tazobactam Sod (Zosyn 2.25gm/ 50ml (Pmx)) 50 ml @ 100 mls/hr Q12 IVPB Last administered on 12/25/16 09:37; Admin Dose 100 MLS/HR; Start at 21:00 Metoprolol Tartrate (Lopressor) 5 mg Q4H PRN IV HR>100 Last administered on 22:23; Admin Dose 5 MG; Start 12/09/16 at 17:48 Amiodarone HCl (Cordarone) 200 mg BID PO Last administered on 12/25/16 09:37; Admin Dose 200 MG; Start 12/10/16 at 13:00 Hydralazine HCl (Apresoline) 10 mg Q6H PRN IV SBP>150mm hg Last administered on 12/19/16 08:50; Admin Dose 10 MG; Start 12/11/16 at 10:30 Morphine Sulfate 2 mg 2 mg Q2H PRN IV PAIN LEVEL 4-7; Start 12/13/16 at 10:00 Caspofungin/ Sodium Chloride (Cancidas/NS) 250 ml @ 250 mls/hr Q24H IVPB Last administered on 12/25/16 11:13; Admin Dose 250 MLS/HR; Start 12/15/16 at 11:00 Metoprolol Tartrate (Lopressor) 12.5 mg BID PO Last administered on 12/25/16 09:37; Admin Dose 12.5 MG; Start 12/16/16 at 21:00 Pantoprazole (Protonix Tab) 40 mg DAILY@06 PO Last administered on 12/25/16 06 :18; Admin Dose 40 MG; Start 12/23/16 at 06:00 Aspirin (Ecotrin) 325 mg DAILY PO Last administered on 12/25/16 09:38; Admin Dose 325 MG; Start 12/24/16 at 09:00 Insulin Glargine (Lantus) 22 unit DAILY@20 SC ; Start 12/25/16 at 20:00 Diagnostic Test (Pha) (Accu-Chek) 1 ea 02 XX Last administered on 12/25/16 02: 40; Admin Dose 1 EA; Start 12/25/16 at 02:00 TASHIA MCGARRY MD December 25, 2016 11:28
--- NOTE | 2016-12-25 11:36 | PN ---
Date/Time of Note Date/Time of Note DATE: 12/25/16 TIME: 11:35 Assessment/Plan VTE Prophylaxis VTE Prophylaxis Intervention: other Lines/Catheters IV [facility] Urinary Cath still in place: Yes Reason Cath still needed: skin wounds contaminated by urine Assessment/Plan Chief Complaint/Hosp Course - Acute respiratory failure secondary to pulmonary edema, resolved. Dr. Alvarez is following from pulmonology standpoint. - Bilateral pleural effusion, this post right sided thoracentesis with removal of 900 cc of fluid. - Acute renal failure, Dr. Remy is following in nephrology consultation. Continue hemodialysis per nephrology. Pending permacath placement by vascular surgery. - Acute to subacute right occipital lobe ischemic infarct per CT, Dr Morris is following in neurology consultation. - Paroxysmal atrial fibrillation and positive troponin. Dr. Cobian is following and cardiology consultation. Status post Lexiscan on 12/24. - Fungemia, om Caspofungin. Dr. Pascual is following in infection disease consultation. - Diabetic foot ulcer of the left foot, Dr Lin is following in podiatry consultation. - Cellulitis of left foot, 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 and left fourth proximal phalanx per bone scan. Continue antibiotics per ID. - Aortic stenosis - Diastolic dysfunction congestive heart failure with preserved ejection fraction of 60%. - DM, Hgb A1c is 8.7, continue Lantus and pre-meal NovoLog and NovoLog per sliding scale. -Traumatic hematuria,, resolved. Dr. Grey urology consult is appreciated. Problems: Subjective 24 Hr Interval Summary Free Text/Dictation Patient was hypoxic, is now on cpap, complains of pain in feet Exam/Review of Systems Vital Signs Vitals Vital Signs Date Time Temp Pulse Resp B/P Pulse Ox O2 Delivery O2 Flow Rate FiO2 12/25/16 11:10 79 98 30 12/25/16 07:37 98.4 18 151/67 12/23/16 16:42 Room Air 12/22/16 21:30 1.0 Intake and Output 12/24/16 12/24/16 12/25/16 15:00 23:00 07:00 Intake Total 500 ml 840 ml 120 ml Output Total 3500 ml 300 ml 125 ml Balance -3000 ml 540 ml -5 ml Exam Constitutional: well developed Head: atraumatic, normocephalic Neck: supple Respiratory: clear to auscultation Cardiovascular: regular rate and rhythm Gastrointestinal: non-tender, soft Extremities: normal pulses Results Result Diagram: 12/25/16 0727 12/25/16 0727 Results 24 hrs Laboratory Tests Test 12/24/16 13:27 12/24/16 17:25 12/24/16 20:50 12/25/16 01:45 Bedside Glucose 109 263 H 302 H 279 H Test 12/25/16 07:27 12/25/16 09:13 12/25/16 11:11 White Blood Count 10.1 Red Blood Count 3.15 L Hemoglobin 9.7 L Hematocrit 30.5 L Mean Corpuscular Volume 96.8 Mean Corpuscular Hemoglobin 30.8 Mean Corpuscular Hemoglobin Concent 31.8 L Red Cell Distribution Width 13.7 Platelet Count 214 Mean Platelet Volume 9.6 Neutrophils % 81.1 H Lymphocytes % 6.9 L Monocytes % 9.0 Eosinophils % 1.4 Basophils % 0.4 Nucleated Red Blood Cells % 0.0 Neutrophils # 8.2 H Lymphocytes # 0.7 L Monocytes # 0.9 Eosinophils # 0.1 Basophils # 0.0 Nucleated Red Blood Cells # 0.0 Sodium Level 136 Potassium Level 4.0 Chloride Level 101 Carbon Dioxide Level 24 Anion Gap 15 Blood Urea Nitrogen 52 H Creatinine 7.95 H Glucose Level 160 Calcium Level 8.2 L Bedside Glucose 156 127 Medications Medications Current Medications Ondansetron HCl (Zofran Inj) 4 mg Q6H PRN IV NAUSEA AND/OR VOMITING Last administered on 12/13/16 01:13; Admin Dose 4 MG; Start 12/02/16 at 22:30 Miscellaneous Information 1 ea NOTE XX ; Start 12/02/16 at 23:00 Glucose (Glutose) 15 gm Q15M PRN PO DECREASED GLUCOSE; Start 12/02/16 at 23:00 Glucose (Glutose) 22.5 gm Q15M PRN PO DECREASED GLUCOSE; Start 12/02/16 at 23: 00 Dextrose (D50w Syringe) 25 ml Q15M PRN IV DECREASED GLUCOSE Last administered on 12/10/16 05:52; Admin Dose 25 ML; Start 12/02/16 at 23:00 Dextrose (D50w Syringe) 50 ml Q15M PRN IV DECREASED GLUCOSE; Start 12/02/16 at 23:00 Glucagon (Glucagen) 1 mg Q15M PRN IM DECREASED GLUCOSE; Start 12/02/16 at 23:00 Glucose (Glutose) 15 gm Q15M PRN BUCCAL DECREASED GLUCOSE; Start 12/02/16 at 23 :00 Gabapentin (Neurontin) 800 mg TID PO Last administered on 12/08/16 20:33; Admin Dose 800 MG; Start 12/03/16 at 09:00; Status Future Hold Meclizine HCl (Antivert) 25 mg TID PRN PO dizziness Last administered on 09:37; Admin Dose 25 MG; Start 12/02/16 at 23:00 Terazosin HCl (Hytrin) 5 mg HS PO Last administered on 12/07/16 20:28; Admin Dose 5 MG; Start 12/03/16 at 21:00; Status Future Hold Acetaminophen/ Hydrocodone Bitart ([place] (5/325)) 1 tab Q6H PRN PO PAIN LEVEL 4 -7 Last administered on 12/23/16 22:14; Admin Dose 1 TAB; Start 12/02/16 at 23: 30 Acetaminophen (Tylenol Tab) 650 mg Q6H PRN PO PAIN AND OR ELEVATED TEMP Last administered on 12/18/16 10:44; Admin Dose 650 MG; Start 12/02/16 at 23:30 Docusate Sodium (Colace) 100 mg BID PO Last administered on 12/08/16 20:32; Admin Dose 100 MG; Start 12/03/16 at 09:00; Status Future Hold Zolpidem Tartrate (Ambien) 5 mg HS PRN PO INSOMNIA Last administered on 00:45; Admin Dose 5 MG; Start 12/02/16 at 23:30 Benazepril HCl (Lotensin) 10 mg DAILY PO Last administered on 12/07/16 08:26; Admin Dose 10 MG; Start 12/04/16 at 09:00; Status Future Hold Collagenase (Santyl) 1 applic DAILY TOP Last administered on 12/25/16 09:38; Admin Dose 1 APPLIC; Start 12/07/16 at 16:00 Lorazepam (Ativan) 2 mg Q2 PRN IV AGITATION/ANXIETY Last administered on 21:54; Admin Dose 2 MG; Start 12/09/16 at 09:30 Morphine Sulfate (morphine) 2 mg Q2H PRN IV PAIN Last administered on 12/20/16 03:22; Admin Dose 2 MG; Start 12/09/16 at 09:30 Acetaminophen 650 mg 650 mg Q6H PRN [place] ELEVATED TEMPERATURE Last administered on 12/09/16 17:53; Admin Dose 650 MG; Start 12/09/16 at 17:00 Piperacillin Sod/ Tazobactam Sod (Zosyn 2.25gm/ 50ml (Pmx)) 50 ml @ 100 mls/hr Q12 IVPB Last administered on 12/25/16 09:37; Admin Dose 100 MLS/HR; Start at 21:00 Metoprolol Tartrate (Lopressor) 5 mg Q4H PRN IV HR>100 Last administered on 22:23; Admin Dose 5 MG; Start 12/09/16 at 17:48 Amiodarone HCl (Cordarone) 200 mg BID PO Last administered on 12/25/16 09:37; Admin Dose 200 MG; Start 12/10/16 at 13:00 Hydralazine HCl (Apresoline) 10 mg Q6H PRN IV SBP>150mm hg Last administered on 12/19/16 08:50; Admin Dose 10 MG; Start 12/11/16 at 10:30 Morphine Sulfate 2 mg 2 mg Q2H PRN IV PAIN LEVEL 4-7; Start 12/13/16 at 10:00 Caspofungin/ Sodium Chloride (Cancidas/NS) 250 ml @ 250 mls/hr Q24H IVPB Last administered on 12/25/16 11:13; Admin Dose 250 MLS/HR; Start 12/15/16 at 11:00 Metoprolol Tartrate (Lopressor) 12.5 mg BID PO Last administered on 12/25/16 09:37; Admin Dose 12.5 MG; Start 12/16/16 at 21:00 Pantoprazole (Protonix Tab) 40 mg DAILY@06 PO Last administered on 12/25/16 06 :18; Admin Dose 40 MG; Start 12/23/16 at 06:00 Aspirin (Ecotrin) 325 mg DAILY PO Last administered on 12/25/16 09:38; Admin Dose 325 MG; Start 12/24/16 at 09:00 Insulin Glargine (Lantus) 22 unit DAILY@20 SC ; Start 12/25/16 at 20:00 Diagnostic Test (Pha) (Accu-Chek) 1 ea XX Last administered on 12/25/16t 02: 40; Admin Dose 1 EA; Start 12/25/16 at 02:00 ELTON MARMOLEJO December 25, 2016 11:36
--- NOTE | 2016-12-25 13:27 | PN ---
DATE: 12/25/2016 SUBJECTIVE: Hematuria from traumatic pulling out the [place] catheter 2 days ago. The patient has sin ce been urinating and the urine is not fresh bloody, he does have some old blood in it. At the pres ent, he is comfortable. He denies having any pain. His son is at his bedside. OBJECTIVE: Temperature is 97.8, pulse is 80, respirations 20, blood pressure 169/81. LABORATORY DATA: His CBC shows a white count of 10.1, hemoglobin 9.7, hematocrit 30.5. PT is 14.9, I NR 1.16, PTT is 74.8. The BUN is 52, creatinine 7.95. The patient was dialyzed yesterday and he is scheduled for dialysis tomorrow. From a urological standpoint, again the bleeding from his urethra will gradually stop, and in fact he is no longer bleeding right now and any blood comes out is old blood. Will just observe for now. Dictated By: JOE KUMAR/MICHELLE Conf#: [id number] DID#: [id number]
--- NOTE | 2016-12-25 14:55 | CONS ---
Date/Time of Note Date/Time of Note DATE: 12/25/16 TIME: 14:48 Assessment/Plan Assessment/Plan Additional Assessment/Plan PAF in NSR CHF Severe Aortic Stenosis Respiratory failure s/p extubation Osteomyelitis Cellulitis left foot Diabetic foot Diabetes Tobacco abuse He desaturated and currently on Bipap Continue Bipap Avoid Diuretics Avoid Volume Overload Continue Metoprolol Discontinue Amiodarone Continue Heparin Continue Insulin Continue antibiotics Consultation Date/Type/Reason Admit Date/Time Dec 02, 2016 at 21:01 Constitutional: no complaints Eyes: no complaints ENT: no complaints Respiratory: no complaints Cardiovascular: no complaints Gastrointestinal: no complaints Genitourinary: hematuria (reported in EMR but Pt's son said it resolved) Musculoskeletal: no complaints Skin: skin lesions (L great toe) Neurologic: other (no neuropathy) Endocrine: no complaints Lymphatic: no complaints Psychological: no complaints Immunologic: no complaints Social History Smoking Status: Former smoker Exam/Review of Systems Vital Signs Vitals Vital Signs Date Time Temp Pulse Resp B/P Pulse Ox O2 Delivery O2 Flow Rate FiO2 12/25/16 14:45 73 95 30 12/25/16 11:48 97.8 20 169/81 12/23/16 16:42 Room Air 12/22/16 21:30 1.0 Intake and Output 12/24/16 12/24/16 12/25/16 15:00 23:00 07:00 Intake Total 500 ml 840 ml 120 ml Output Total 3500 ml 300 ml 125 ml Balance -3000 ml 540 ml -5 ml Exam Constitutional: alert, oriented, other (On Bipap) Head: atraumatic, normocephalic Neck: non-tender, supple Respiratory: clear to auscultation Cardiovascular: regular rate and rhythm Gastrointestinal: nl liver, spleen, non-tender, soft Musculoskeletal: other (cellulitis left foot) Results Result Diagram: 12/25/16 0712/25/16 07 Results 24 hrs Laboratory Tests Test 12/24/16 17:25 12/24/16 20:50 12/25/16 01:45 12/25/16 07:27 Bedside Glucose 263 H 302 H 279 H White Blood Count 10.1 Red Blood Count 3.15 L Hemoglobin 9.7 L Hematocrit 30.5 L Mean Corpuscular Volume 96.8 Mean Corpuscular Hemoglobin 30.8 Mean Corpuscular Hemoglobin Concent 31.8 L Red Cell Distribution Width 13.7 Platelet Count 214 Mean Platelet Volume 9.6 Neutrophils % 81.1 H Lymphocytes % 6.9 L Monocytes % 9.0 Eosinophils % 1.4 Basophils % 0.4 Nucleated Red Blood Cells % 0.0 Neutrophils # 8.2 H Lymphocytes # 0.7 L Monocytes # 0.9 Eosinophils # 0.1 Basophils # 0.0 Nucleated Red Blood Cells # 0.0 Sodium Level 136 Potassium Level 4.0 Chloride Level 101 Carbon Dioxide Level 24 Anion Gap 15 Blood Urea Nitrogen 52 H Creatinine 7.95 H Glucose Level 160 Calcium Level 8.2 L Test 12/25/16 09:13 12/25/16 11:11 Bedside Glucose 156 127 Medications Medications Current Medications Ondansetron HCl (Zofran Inj) 4 mg Q6H PRN IV NAUSEA AND/OR VOMITING Last administered on 12/13/16 01:13; Admin Dose 4 MG; Start 12/02/16 at 22:30 Miscellaneous Information 1 ea NOTE XX ; Start 12/02/16 at 23:00 Glucose (Glutose) 15 gm Q15M PRN PO DECREASED GLUCOSE; Start 12/02/16 at 23:00 Glucose (Glutose) 22.5 gm Q15M PRN PO DECREASED GLUCOSE; Start 12/02/16 at 23: 00 Dextrose (D50w Syringe) 25 ml Q15M PRN IV DECREASED GLUCOSE Last administered on 12/10/16 05:52; Admin Dose 25 ML; Start 12/02/16 at 23:00 Dextrose (D50w Syringe) 50 ml Q15M PRN IV DECREASED GLUCOSE; Start 12/02/16 at 23:00 Glucagon (Glucagen) 1 mg Q15M PRN IM DECREASED GLUCOSE; Start 12/02/16 at 23:00 Glucose (Glutose) 15 gm Q15M PRN BUCCAL DECREASED GLUCOSE; Start 12/02/16 at 23 :00 Gabapentin (Neurontin) 800 mg TID PO Last administered on 12/08/16 20:33; Admin Dose 800 MG; Start 12/03/16 at 09:00; Status Future Hold Meclizine HCl (Antivert) 25 mg TID PRN PO dizziness Last administered on 09:37; Admin Dose 25 MG; Start 12/02/16 at 23:00 Terazosin HCl (Hytrin) 5 mg HS PO Last administered on 12/07/16 20:28; Admin Dose 5 MG; Start 12/03/16 at 21:00; Status Future Hold Acetaminophen/ Hydrocodone Bitart ([place] (5/325)) 1 tab Q6H PRN PO PAIN LEVEL 4 -7 Last administered on 12/23/16 22:14; Admin Dose 1 TAB; Start 12/02/16 at 23: 30 Acetaminophen (Tylenol Tab) 650 mg Q6H PRN PO PAIN AND OR ELEVATED TEMP Last administered on 12/18/16 10:44; Admin Dose 650 MG; Start 12/02/16 at 23:30 Docusate Sodium (Colace) 100 mg BID PO Last administered on 12/08/16 20:32; Admin Dose 100 MG; Start 12/03/16 at 09:00; Status Future Hold Zolpidem Tartrate (Ambien) 5 mg HS PRN PO INSOMNIA Last administered on 00:45; Admin Dose 5 MG; Start 12/02/16 at 23:30 Benazepril HCl (Lotensin) 10 mg DAILY PO Last administered on 12/07/16 08:26; Admin Dose 10 MG; Start 12/04/16 at 09:00; Status Future Hold Collagenase (Santyl) 1 applic DAILY TOP Last administered on 12/25/16 09:38; Admin Dose 1 APPLIC; Start 12/07/16 at 16:00 Lorazepam (Ativan) 2 mg Q2 PRN IV AGITATION/ANXIETY Last administered on 21:54; Admin Dose 2 MG; Start 12/09/16 at 09:30 Morphine Sulfate (morphine) 2 mg Q2H PRN IV PAIN Last administered on 12/20/16 03:22; Admin Dose 2 MG; Start 12/09/16 at 09:30 Acetaminophen 650 mg 650 mg Q6H PRN [place] ELEVATED TEMPERATURE Last administered on 12/09/16 17:53; Admin Dose 650 MG; Start 12/09/16 at 17:00 Piperacillin Sod/ Tazobactam Sod (Zosyn 2.25gm/ 50ml (Pmx)) 50 ml @ 100 mls/hr Q12 IVPB Last administered on 12/25/16 09:37; Admin Dose 100 MLS/HR; Start at 21:00 Metoprolol Tartrate (Lopressor) 5 mg Q4H PRN IV HR>100 Last administered on 22:23; Admin Dose 5 MG; Start 12/09/16 at 17:48 Amiodarone HCl (Cordarone) 200 mg BID PO Last administered on 12/25/16 09:37; Admin Dose 200 MG; Start 12/10/16 at 13:00 Hydralazine HCl (Apresoline) 10 mg Q6H PRN IV SBP>150mm hg Last administered on 12/19/16 08:50; Admin Dose 10 MG; Start 12/11/16 at 10:30 Morphine Sulfate 2 mg 2 mg Q2H PRN IV PAIN LEVEL 4-7; Start 12/13/16 at 10:00 Caspofungin/ Sodium Chloride (Cancidas/NS) 250 ml @ 250 mls/hr Q24H IVPB Last administered on 12/25/16 11:13; Admin Dose 250 MLS/HR; Start 12/15/16 at 11:00 Metoprolol Tartrate (Lopressor) 12.5 mg BID PO Last administered on 12/25/16 09:37; Admin Dose 12.5 MG; Start 12/16/16 at 21:00 Pantoprazole (Protonix Tab) 40 mg DAILY@06 PO Last administered on 12/25/16 06 :18; Admin Dose 40 MG; Start 12/23/16 at 06:00 Aspirin (Ecotrin) 325 mg DAILY PO Last administered on 12/25/16 09:38; Admin Dose 325 MG; Start 12/24/16 at 09:00 Insulin Glargine (Lantus) 22 unit DAILY@20 SC ; Start 12/25/16 at 20:00 Diagnostic Test (Pha) (Accu-Chek) 1 ea 02 XX Last administered on 12/25/16 02: 40; Admin Dose 1 EA; Start 12/25/16 at 02:00 VIRI ROY M.D. December 25, 2016 14:55
--- NOTE | 2016-12-25 19:46 | CONS ---
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 Blood cultures from HD catheter on 12/13/2016 are negative to date. 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 superficial swab grew inna only - right pleural effusion s/p thoracentesis with .9L removed on 12/16/2016; (Note: there is no pleural fluid cx since orders were placed after Right thoracentesis , and Left thoracentesis was not performed on 12/17/16 d/t insufficient fluid) - funguria - ARANZA, on HD from 12/09/2016 - A fib; now in SR - troponin+ - small nonreversible perfusion abnormality in the inferoapical and inferior carver; EF 36% per Lexiscan 12/24/2016 - severe , EF 40-45% per TTE 12/17/16 - DM - Hgb A1c 8.7% - HTN associated with DM - Hypoxia requiring Bipap ?fluid overload recommendations: - repeat CXR - continue caspofungin (12/14/2016-) - continue renally dosed pip/tazo (12/03/2016) empirically for diabetic foot infection, and sepsis (s/p linezolid) - Ultimately, Pt needs 6 weeks of antibiotics to treat 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 and left fourth proximal phalanx: 12/03/2016 through 01/15/2017 Management d/w Pt, his son, and Dr. Moses Problems: Consultation Date/Type/Reason Admit Date/Time Dec 02, 2016 at 21:01 Initial Consult Date 12/03/16 Type of Consultation: Infectious Disease Referring Provider: VIET PARKER MD 24 HR Interval Summary Free Text/Dictation Pt c/o SOB with low O2 sat requiring Bipap. HD done yesterday and scheduled for tomorrow. "Not doing too well" per pt's son. ROS limited as pt is on Bipap. Constitutional: requiring O2 (Bipap) Exam/Review of Systems Vital Signs Vitals Vital Signs Date Time Temp Pulse Resp B/P Pulse Ox O2 Delivery O2 Flow Rate FiO2 12/25/16 17:00 3.0 12/25/16 16:28 69 12/25/16 16:22 97.4 18 118/74 100 12/25/16 14:45 30 12/23/16 16:42 Room Air Intake and Output 12/24/16 12/24/16 12/25/16 15:00 23:00 07:00 Intake Total 500 ml 840 ml 120 ml Output Total 3500 ml 300 ml 125 ml Balance -3000 ml 540 ml -5 ml Exam Constitutional: alert, oriented, well developed, on Bipap in NAD Psych: nl mood/affect Head: atraumatic, normocephalic Eyes: nl sclera Neck: supple Respiratory: diminished breath sounds No wheezing Cardiovascular: regular rate and rhythm, systolic murmur Gastrointestinal: bowel sounds (present), non-tender, soft, No distended Genitourinary - Male: other (Right groin HD catheter with no e/o infection) Extremities: other (LUE hand HL with no e/o infection), No clubbing, No cyanosis Neurological: nl mental status, nl speech (Primarily Italian speaking) Skin: nl turgor, other (See nurse note and photos in chart for details; stage 2 sacrococcyx ulcer; Left great toe diabetic dry ulcer) Results Result Diagram: 12/25/1672612/25/16726 Results 24 hrs Laboratory Tests Test 12/24/16 20:50 12/25/16 01:45 12/25/16 07:27 12/25/16 09:13 Bedside Glucose 302 H 279 H 156 White Blood Count 10.1 Red Blood Count 3.15 L Hemoglobin 9.7 L Hematocrit 30.5 L Mean Corpuscular Volume 96.8 Mean Corpuscular Hemoglobin 30.8 Mean Corpuscular Hemoglobin Concent 31.8 L Red Cell Distribution Width 13.7 Platelet Count 214 Mean Platelet Volume 9.6 Neutrophils % 81.1 H Lymphocytes % 6.9 L Monocytes % 9.0 Eosinophils % 1.4 Basophils % 0.4 Nucleated Red Blood Cells % 0.0 Neutrophils # 8.2 H Lymphocytes # 0.7 L Monocytes # 0.9 Eosinophils # 0.1 Basophils # 0.0 Nucleated Red Blood Cells # 0.0 Sodium Level 136 Potassium Level 4.0 Chloride Level 101 Carbon Dioxide Level 24 Anion Gap 15 Blood Urea Nitrogen 52 H Creatinine 7.95 H Glucose Level 160 Calcium Level 8.2 L Test 12/25/16 11:11 12/25/16 17:01 Bedside Glucose 127 91 Medications Medications Current Medications Ondansetron HCl (Zofran Inj) 4 mg Q6H PRN IV NAUSEA AND/OR VOMITING Last administered on 12/13/16 01:13; Admin Dose 4 MG; Start 12/02/16 at 22:30 Miscellaneous Information 1 ea NOTE XX ; Start 12/02/16 at 23:00 Glucose (Glutose) 15 gm Q15M PRN PO DECREASED GLUCOSE; Start 12/02/16 at 23:00 Glucose (Glutose) 22.5 gm Q15M PRN PO DECREASED GLUCOSE; Start 12/02/16 at 23: 00 Dextrose (D50w Syringe) 25 ml Q15M PRN IV DECREASED GLUCOSE Last administered on 12/10/16 05:52; Admin Dose 25 ML; Start 12/02/16 at 23:00 Dextrose (D50w Syringe) 50 ml Q15M PRN IV DECREASED GLUCOSE; Start 12/02/16 at 23:00 Glucagon (Glucagen) 1 mg Q15M PRN IM DECREASED GLUCOSE; Start 12/02/16 at 23:00 Glucose (Glutose) 15 gm Q15M PRN BUCCAL DECREASED GLUCOSE; Start 12/02/16 at 23 :00 Gabapentin (Neurontin) 800 mg TID PO Last administered on 12/08/16 20:33; Admin Dose 800 MG; Start 12/03/16 at 09:00; Status Future Hold Meclizine HCl (Antivert) 25 mg TID PRN PO dizziness Last administered on 09:37; Admin Dose 25 MG; Start 12/02/16 at 23:00 Terazosin HCl (Hytrin) 5 mg HS PO Last administered on 12/07/16 20:28; Admin Dose 5 MG; Start 12/03/16 at 21:00; Status Future Hold Acetaminophen/ Hydrocodone Bitart ([place] (5/325)) 1 tab Q6H PRN PO PAIN LEVEL 4 -7 Last administered on 12/23/16 22:14; Admin Dose 1 TAB; Start 12/02/16 at 23: 30 Acetaminophen (Tylenol Tab) 650 mg Q6H PRN PO PAIN AND OR ELEVATED TEMP Last administered on 12/18/16 10:44; Admin Dose 650 MG; Start 12/02/16 at 23:30 Docusate Sodium (Colace) 100 mg BID PO Last administered on 12/08/16 20:32; Admin Dose 100 MG; Start 12/03/16 at 09:00; Status Future Hold Zolpidem Tartrate (Ambien) 5 mg HS PRN PO INSOMNIA Last administered on 00:45; Admin Dose 5 MG; Start 12/02/16 at 23:30 Benazepril HCl (Lotensin) 10 mg DAILY PO Last administered on 12/07/16 08:26; Admin Dose 10 MG; Start 12/04/16 at 09:00; Status Future Hold Collagenase (Santyl) 1 applic DAILY TOP Last administered on 12/25/16 09:38; Admin Dose 1 APPLIC; Start 12/07/16 at 16:00 Lorazepam (Ativan) 2 mg Q2 PRN IV AGITATION/ANXIETY Last administered on 21:54; Admin Dose 2 MG; Start 12/09/16 at 09:30 Morphine Sulfate (morphine) 2 mg Q2H PRN IV PAIN Last administered on 12/20/16 03:22; Admin Dose 2 MG; Start 12/09/16 at 09:30 Acetaminophen 650 mg 650 mg Q6H PRN [place] ELEVATED TEMPERATURE Last administered on 12/09/16 17:53; Admin Dose 650 MG; Start 12/09/16 at 17:00 Piperacillin Sod/ Tazobactam Sod (Zosyn 2.25gm/ 50ml (Pmx)) 50 ml @ 100 mls/hr Q12 IVPB Last administered on 12/25/16 09:37; Admin Dose 100 MLS/HR; Start at 21:00 Metoprolol Tartrate (Lopressor) 5 mg Q4H PRN IV HR>100 Last administered on 22:23; Admin Dose 5 MG; Start 12/09/16 at 17:48 Amiodarone HCl (Cordarone) 200 mg BID PO Last administered on 12/25/16 09:37; Admin Dose 200 MG; Start 12/10/16 at 13:00 Hydralazine HCl (Apresoline) 10 mg Q6H PRN IV SBP>150mm hg Last administered on 12/19/16 08:50; Admin Dose 10 MG; Start 12/11/16 at 10:30 Morphine Sulfate 2 mg 2 mg Q2H PRN IV PAIN LEVEL 4-7; Start 12/13/16 at 10:00 Caspofungin/ Sodium Chloride (Cancidas/NS) 250 ml @ 250 mls/hr Q24H IVPB Last administered on 12/25/16 11:13; Admin Dose 250 MLS/HR; Start 12/15/16 at 11:00 Metoprolol Tartrate (Lopressor) 12.5 mg BID PO Last administered on 12/25/16 09:37; Admin Dose 12.5 MG; Start 12/16/16 at 21:00 Pantoprazole (Protonix Tab) 40 mg DAILY@06 PO Last administered on 12/25/16 06 :18; Admin Dose 40 MG; Start 12/23/16 at 06:00 Aspirin (Ecotrin) 325 mg DAILY PO Last administered on 12/25/16 09:38; Admin Dose 325 MG; Start 12/24/16 at 09:00 Insulin Glargine (Lantus) 22 unit DAILY@20 SC ; Start 12/25/16 at 20:00 Diagnostic Test (Pha) (Accu-Chek) 1 ea 02 XX Last administered on 12/25/16 02: 40; Admin Dose 1 EA; Start 12/25/16 at 02:00 CHRISTY MOSES M.D. 12/26/16 1117: Assessment/Plan Assessment/Plan Additional Assessment/Plan Aurelia attestation: I discussed the management with ELODIA Alatorre and agree with above Exam/Review of Systems Results Result Diagram: 12/25/16 0727 12/25/16 0727 YUMIKO ALATORRE NP December 25, 2016 19:46 CHRISTY MOSES M.D. December 26, 2016 11:17
[2016-12-25] MEDS: INSULIN GLARGINE [LANtus] 3 ML PEN SC SCH (21:02)
[2016-12-26] VITALS (26 sets, daily range): BP systolic 109–149; BP diastolic 51–82; PULSE 54–85; RESP 18–20
[2016-12-26] MEDS: ACCU-CHEK XX SCH (02:00)
[2016-12-26] MEDS: PANTOPRAZOLE (EC) 40 MG TAB PO SCH (06:01)
[2016-12-26] MEDS: ALBUTEROL/IPRATROPIUM (NEB) 3 ML AMP HHN SCH ×3 (07:54→19:09)
[2016-12-26] MEDS: INSULIN ASPART [NOVOLOG] 3 ML PEN SC SCH ×3 (08:00→17:45)
--- NOTE | 2016-12-26 08:43 | RADRPT ---
PROCEDURE: XR Chest. CLINICAL INDICATION: Shortness of breath. Hypoxia TECHNIQUE: A single portable view of the chest was obtained. COMPARISON: 12/22/2016 FINDINGS: The aorta is tortuous and atherosclerotic. The cardiomediastinal silhouette is otherwise enlarged a nd is stable. Diffuse pulmonary vascular congestion is seen with likely underlying pulmonary edema and is stable. Bilateral pleural effusions are again noted and are unchanged. The soft tissues and o sseous structures demonstrate benign age related senescent changes. IMPRESSION: Radiographic findings of congestive heart failure again seen which is stable. RPTAT: HPNM Physician Kelby Date Time Electronically viewed and signed by Physician Kelby on 12/26/2016 08:43 /
[2016-12-26] MEDS: PIPER-TAZO 2.25 GM (PMX) 50 ML IVPB SCH ×2 (09:06→20:38)
[2016-12-26] MEDS: METOPROLOL 25 MG TAB PO SCH ×2 (09:07→20:38)
[2016-12-26] MEDS: AMIODARONE 200 MG TAB PO SCH (09:07)
[2016-12-26] MEDS: ASPIRIN (EC) 325 MG TAB PO SCH (09:07)
[2016-12-26] MEDS: COLLAGENASE 30 GM TUBE TOP SCH (09:08)
--- NOTE | 2016-12-26 11:55 | PN ---
Date/Time of Note Date/Time of Note DATE: 12/26/16 TIME: 11:54 Assessment/Plan VTE Prophylaxis VTE Prophylaxis Intervention: other Lines/Catheters IV [facility]ter [facility]from [facility]): Saline Lock Urinary Cath still in place: Yes Reason Cath still needed: skin wounds contaminated by urine Assessment/Plan Chief Complaint/Hosp Course - Acute respiratory failure secondary to pulmonary edema, resolved. Dr. Alvarez is following from pulmonology standpoint. - Bilateral pleural effusion, this post right sided thoracentesis with removal of 900 cc of fluid. - Acute renal failure, Dr. Remy is following in nephrology consultation. Continue hemodialysis per nephrology. Pending permacath placement by vascular surgery. - Acute to subacute right occipital lobe ischemic infarct per CT, Dr Morris is following in neurology consultation. - Paroxysmal atrial fibrillation and positive troponin. Dr. Cobian is following and cardiology consultation. Status post Lexiscan on 12/24. - Fungemia, om Caspofungin. Dr. Pascual is following in infection disease consultation. - Diabetic foot ulcer of the left foot, Dr Lin is following in podiatry consultation. - Cellulitis of left foot, 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 and left fourth proximal phalanx per bone scan. Continue antibiotics per ID. - Aortic stenosis - Diastolic dysfunction congestive heart failure with preserved ejection fraction of 60%. - DM, Hgb A1c is 8.7, continue Lantus and pre-meal NovoLog and NovoLog per sliding scale. -Traumatic hematuria,, resolved. Dr. Grey urology consult is appreciated. Problems: Subjective 24 Hr Interval Summary Free Text/Dictation Patient states he is comfortable, with CPAP in place Exam/Review of Systems Vital Signs Vitals Vital Signs Date Time Temp Pulse Resp B/P Pulse Ox O2 Delivery O2 Flow Rate FiO2 12/26/16 10:05 82 20 12/26/16 07:55 98.6 127/59 100 12/26/16 07:45 30 12/25/16 17:00 3.0 12/23/16 16:42 Room Air Intake and Output 12/25/16 12/25/16 12/26/16 15:00 23:00 07:00 Intake Total 300 ml 690 ml 400 ml Output Total 150 ml Balance 300 ml 540 ml 400 ml Exam Constitutional: well developed Head: atraumatic, normocephalic Neck: supple Respiratory: diminished breath sounds Cardiovascular: regular rate and rhythm Gastrointestinal: non-tender, soft Extremities: normal pulses Results Result Diagram: 12/25/1672612/25/16726 Results 24 hrs Laboratory Tests Test 12/25/16 17:01 12/25/16 20:59 12/26/16 02:50 12/26/16 07:45 Bedside Glucose 91 175 131 97 Medications Medications Current Medications Ondansetron HCl (Zofran Inj) 4 mg Q6H PRN IV NAUSEA AND/OR VOMITING Last administered on 12/13/16 01:13; Admin Dose 4 MG; Start 12/02/16 at 22:30 Miscellaneous Information 1 ea NOTE XX ; Start 12/02/16 at 23:00 Glucose (Glutose) 15 gm Q15M PRN PO DECREASED GLUCOSE; Start 12/02/16 at 23:00 Glucose (Glutose) 22.5 gm Q15M PRN PO DECREASED GLUCOSE; Start 12/02/16 at 23: 00 Dextrose (D50w Syringe) 25 ml Q15M PRN IV DECREASED GLUCOSE Last administered on 12/10/16 05:52; Admin Dose 25 ML; Start 12/02/16 at 23:00 Dextrose (D50w Syringe) 50 ml Q15M PRN IV DECREASED GLUCOSE; Start 12/02/16 at 23:00 Glucagon (Glucagen) 1 mg Q15M PRN IM DECREASED GLUCOSE; Start 12/02/16 at 23:00 Glucose (Glutose) 15 gm Q15M PRN BUCCAL DECREASED GLUCOSE; Start 12/02/16 at 23 :00 Gabapentin (Neurontin) 800 mg TID PO Last administered on 12/08/16 20:33; Admin Dose 800 MG; Start 12/03/16 at 09:00; Status Future Hold Meclizine HCl (Antivert) 25 mg TID PRN PO dizziness Last administered on 09:37; Admin Dose 25 MG; Start 12/02/16 at 23:00 Terazosin HCl (Hytrin) 5 mg HS PO Last administered on 12/07/16 20:28; Admin Dose 5 MG; Start 12/03/16 at 21:00; Status Future Hold Acetaminophen/ Hydrocodone Bitart ([place] (5/325)) 1 tab Q6H PRN PO PAIN LEVEL 4 -7 Last administered on 12/23/16 22:14; Admin Dose 1 TAB; Start 12/02/16 at 23: 30 Acetaminophen (Tylenol Tab) 650 mg Q6H PRN PO PAIN AND OR ELEVATED TEMP Last administered on 12/18/16 10:44; Admin Dose 650 MG; Start 12/02/16 at 23:30 Docusate Sodium (Colace) 100 mg BID PO Last administered on 12/08/16 20:32; Admin Dose 100 MG; Start 12/03/16 at 09:00; Status Future Hold Zolpidem Tartrate (Ambien) 5 mg HS PRN PO INSOMNIA Last administered on 00:45; Admin Dose 5 MG; Start 12/02/16 at 23:30 Benazepril HCl (Lotensin) 10 mg DAILY PO Last administered on 12/07/16 08:26; Admin Dose 10 MG; Start 12/04/16 at 09:00; Status Future Hold Collagenase (Santyl) 1 applic DAILY TOP Last administered on 12/26/16 09:08; Admin Dose 1 APPLIC; Start 12/07/16 at 16:00 Lorazepam (Ativan) 2 mg Q2 PRN IV AGITATION/ANXIETY Last administered on 21:54; Admin Dose 2 MG; Start 12/09/16 at 09:30 Morphine Sulfate (morphine) 2 mg Q2H PRN IV PAIN Last administered on 12/20/16 03:22; Admin Dose 2 MG; Start 12/09/16 at 09:30 Acetaminophen 650 mg 650 mg Q6H PRN [place] ELEVATED TEMPERATURE Last administered on 12/09/16 17:53; Admin Dose 650 MG; Start 12/09/16 at 17:00 Piperacillin Sod/ Tazobactam Sod (Zosyn 2.25gm/ 50ml (Pmx)) 50 ml @ 100 mls/hr Q12 IVPB Last administered on 12/26/16 09:06; Admin Dose 100 MLS/HR; Start at 21:00 Metoprolol Tartrate (Lopressor) 5 mg Q4H PRN IV HR>100 Last administered on 22:23; Admin Dose 5 MG; Start 12/09/16 at 17:48 Amiodarone HCl (Cordarone) 200 mg BID PO Last administered on 12/26/16 09:07; Admin Dose 200 MG; Start 12/10/16 at 13:00 Hydralazine HCl (Apresoline) 10 mg Q6H PRN IV SBP>150mm hg Last administered on 12/19/16 08:50; Admin Dose 10 MG; Start 12/11/16 at 10:30 Morphine Sulfate 2 mg 2 mg Q2H PRN IV PAIN LEVEL 4-7; Start 12/13/16 at 10:00 Caspofungin/ Sodium Chloride (Cancidas/NS) 250 ml @ 250 mls/hr Q24H IVPB Last administered on 12/25/16 11:13; Admin Dose 250 MLS/HR; Start 12/15/16 at 11:00 Metoprolol Tartrate (Lopressor) 12.5 mg BID PO Last administered on 12/26/16 09:07; Admin Dose 12.5 MG; Start 12/16/16 at 21:00 Pantoprazole (Protonix Tab) 40 mg DAILY@06 PO Last administered on 12/26/16 06 :01; Admin Dose 40 MG; Start 12/23/16 at 06:00 Aspirin (Ecotrin) 325 mg DAILY PO Last administered on 12/26/16 09:07; Admin Dose 325 MG; Start 12/24/16 at 09:00 Insulin Glargine (Lantus) 22 unit DAILY@20 SC Last administered on 12/25/16 21 :02; Admin Dose 22 UNIT; Start 12/25/16 at 20:00 Diagnostic Test (Pha) (Accu-Chek) 1 ea 02 XX Last administered on 12/26/16 02: 00; Admin Dose 1 EA; Start 12/25/16 at 02:00 ELTON MARMOLEJO December 26, 2016 11:55
[2016-12-26] MEDS: CASPOFUNGIN 50 MG in SOD CHLORIDE 0.9% 250 ML IVPB SCH (12:37)
--- NOTE | 2016-12-26 12:55 | CONS ---
Date/Time of Note Date/Time of Note DATE: 12/26/16 TIME: 12:52 Consult Date/Type/Reason Admit Date/Time Dec 02, 2016 at 21:01 Initial Consult Date 12/08/16 Type of Consultation: Infectious Disease Ordering Provider: VIET PARKER MD Subjective remains on BIPAP, HD today- 2L removed, tolerated well, s/p lexiscan showed non reversible perfusion defect with EF 39%,BP stable. dw staff- no acute events reported overnight. Objective Vital Signs Date Time Temp Pulse Resp B/P Pulse Ox O2 Delivery O2 Flow Rate FiO2 12/26/16 12:20 72 12/26/16 12:20 98.1 20 112/55 97 12/26/16 07:45 30 12/25/16 17:00 3.0 12/23/16 16:42 Room Air Intake and Output 12/25/16 12/25/16 12/26/16 15:00 23:00 07:00 Intake Total 300 ml 690 ml 400 ml Output Total 150 ml Balance 300 ml 540 ml 400 ml Exam Constitutional: awake, alert, nad Respiratory: clear to auscultation, normal air movement Cardiovascular: nl pulses, regular rate and rhythm, systolic murmur Gastrointestinal: non-tender, soft Musculoskeletal: nl extremities to inspection Extremities: normal pulses Neurological: A/O x 3 Skin: nl turgor, left big toe ulcer. Results/Medications Result Diagram: 12/25/1627 12/25/16726 Results 24 hrs Laboratory Tests Test 12/25/16 17:01 12/25/16 20:59 12/26/16 02:50 12/26/16 07:45 Bedside Glucose 91 175 131 97 Test 12/26/16 12:27 Bedside Glucose 181 Medications Current Medications Ondansetron HCl (Zofran Inj) 4 mg Q6H PRN IV NAUSEA AND/OR VOMITING Last administered on 12/13/16t 01:13; Admin Dose 4 MG; Start 12/02/16 at 22:30 Miscellaneous Information 1 ea NOTE XX ; Start 12/02/16 at 23:00 Glucose (Glutose) 15 gm Q15M PRN PO DECREASED GLUCOSE; Start 12/02/16 at 23:00 Glucose (Glutose) 22.5 gm Q15M PRN PO DECREASED GLUCOSE; Start 12/02/16 at 23: 00 Dextrose (D50w Syringe) 25 ml Q15M PRN IV DECREASED GLUCOSE Last administered on 12/10/16 05:52; Admin Dose 25 ML; Start 12/02/16 at 23:00 Dextrose (D50w Syringe) 50 ml Q15M PRN IV DECREASED GLUCOSE; Start 12/02/16 at 23:00 Glucagon (Glucagen) 1 mg Q15M PRN IM DECREASED GLUCOSE; Start 12/02/16 at 23:00 Glucose (Glutose) 15 gm Q15M PRN BUCCAL DECREASED GLUCOSE; Start 12/02/16 at 23 :00 Gabapentin (Neurontin) 800 mg TID PO Last administered on 12/08/16 20:33; Admin Dose 800 MG; Start 12/03/16 at 09:00; Status Future Hold Meclizine HCl (Antivert) 25 mg TID PRN PO dizziness Last administered on 09:37; Admin Dose 25 MG; Start 12/02/16 at 23:00 Terazosin HCl (Hytrin) 5 mg HS PO Last administered on 12/07/16 20:28; Admin Dose 5 MG; Start 12/03/16 at 21:00; Status Future Hold Acetaminophen/ Hydrocodone Bitart ([place] (5/325)) 1 tab Q6H PRN PO PAIN LEVEL 4 -7 Last administered on 12/23/16 22:14; Admin Dose 1 TAB; Start 12/02/16 at 23: 30 Acetaminophen (Tylenol Tab) 650 mg Q6H PRN PO PAIN AND OR ELEVATED TEMP Last administered on 12/18/16 10:44; Admin Dose 650 MG; Start 12/02/16 at 23:30 Docusate Sodium (Colace) 100 mg BID PO Last administered on 12/08/16 20:32; Admin Dose 100 MG; Start 12/03/16 at 09:00; Status Future Hold Zolpidem Tartrate (Ambien) 5 mg HS PRN PO INSOMNIA Last administered on 00:45; Admin Dose 5 MG; Start 12/02/16 at 23:30 Benazepril HCl (Lotensin) 10 mg DAILY PO Last administered on 12/07/16 08:26; Admin Dose 10 MG; Start 12/04/16 at 09:00; Status Future Hold Collagenase (Santyl) 1 applic DAILY TOP Last administered on 12/26/16 09:08; Admin Dose 1 APPLIC; Start 12/07/16 at 16:00 Lorazepam (Ativan) 2 mg Q2 PRN IV AGITATION/ANXIETY Last administered on 21:54; Admin Dose 2 MG; Start 12/09/16 at 09:30 Morphine Sulfate (morphine) 2 mg Q2H PRN IV PAIN Last administered on 12/20/16 03:22; Admin Dose 2 MG; Start 12/09/16 at 09:30 Acetaminophen 650 mg 650 mg Q6H PRN [place] ELEVATED TEMPERATURE Last administered on 12/09/16 17:53; Admin Dose 650 MG; Start 12/09/16 at 17:00 Piperacillin Sod/ Tazobactam Sod (Zosyn 2.25gm/ 50ml (Pmx)) 50 ml @ 100 mls/hr Q12 IVPB Last administered on 12/26/16 09:06; Admin Dose 100 MLS/HR; Start at 21:00 Metoprolol Tartrate (Lopressor) 5 mg Q4H PRN IV HR>100 Last administered on 22:23; Admin Dose 5 MG; Start 12/09/16 at 17:48 Amiodarone HCl (Cordarone) 200 mg BID PO Last administered on 12/26/16 09:07; Admin Dose 200 MG; Start 12/10/16 at 13:00 Hydralazine HCl (Apresoline) 10 mg Q6H PRN IV SBP>150mm hg Last administered on 12/19/16 08:50; Admin Dose 10 MG; Start 12/11/16 at 10:30 Morphine Sulfate 2 mg 2 mg Q2H PRN IV PAIN LEVEL 4-7; Start 12/13/16 at 10:00 Caspofungin/ Sodium Chloride (Cancidas/NS) 250 ml @ 250 mls/hr Q24H IVPB Last administered on 12/26/16 12:37; Admin Dose 250 MLS/HR; Start 12/15/16 at 11:00 Metoprolol Tartrate (Lopressor) 12.5 mg BID PO Last administered on 12/26/16 09:07; Admin Dose 12.5 MG; Start 12/16/16 at 21:00 Pantoprazole (Protonix Tab) 40 mg DAILY@06 PO Last administered on 12/26/16 06 :01; Admin Dose 40 MG; Start 12/23/16 at 06:00 Aspirin (Ecotrin) 325 mg DAILY PO Last administered on 12/26/16 09:07; Admin Dose 325 MG; Start 12/24/16 at 09:00 Insulin Glargine (Lantus) 22 unit DAILY@20 SC Last administered on 12/25/16 21 :02; Admin Dose 22 UNIT; Start 12/25/16 at 20:00 Diagnostic Test (Pha) (Accu-Chek) 1 ea 02 XX Last administered on 12/26/16 02: 00; Admin Dose 1 EA; Start 12/25/16 at 02:00 Assessment/Plan Additional Assessment/Plan 1. Oliguric to Anuric Acute kidney injury 2/2 ATN- started on HD on 12/09/16 for acute fluid overload and Pulmonary edema 2. acute resp failure intubated on ventilator -now extubated on 12/10/2016- then again reintubated on 12/13/2016- now self extubated on 12/18/16 3. Moderate to large right pleural effusion s/p Right thoracentesis 900 cc drained on 12/16/16 2. Left foot diabetic ulcer/cellulitis currently on IV antibiotics, Zosyn and vancomycin. 3. History of diabetes mellitus, insulin-dependent with lower extremity neuropathy. 4. History of hypertension. 5. History of aortic stenosis with diastolic dysfunction with ejection fraction 60% on echocardiogram. PLAN: s/p right thoracentesis 900 cc drained on 12/16/16, Us showed small left pleural effusion No Plan for HD today , will plan for HD tomorrow, S/p lexiscan showed non reversible perfusion defect with EF39% - also discussed with family about Permacath placement - possible plan for permacath on Tuesday follow up blood cx has been negative to date from 12/13/16 will do CXR for HD placement after permacath placement case management for HD placement will continue to follow up Further recommendations depend upon patient's clinical course. Total time spent is 30 mins in reviewing patients chart/DW Dr Evelina Weiss;/staff/patient. YULIANA SIMMONS December 26, 2016 12:55
--- NOTE | 2016-12-26 14:02 | CONS ---
Date/Time of Note Date/Time of Note DATE: 12/26/16 TIME: 13:58 Assessment/Plan Assessment/Plan Additional Assessment/Plan PAF in NSR CHF Severe Aortic Stenosis Respiratory failure s/p extubation Osteomyelitis Cellulitis left foot Diabetic foot Diabetes Tobacco abuse Continues to be on Bipap CXR shows worsening of pulmonary vascular congestion Recommend HD today Continue Bipap Avoid Diuretics Avoid Volume Overload Continue Metoprolol Off Amiodarone Continue Heparin Continue Insulin Continue antibiotics Consultation Date/Type/Reason Admit Date/Time Dec 02, 2016 at 21:01 Initial Consult Date 12/08/16 Type of Consultation: Infectious Disease Referring Provider: VIET PARKER MD Exam/Review of Systems Vital Signs Vitals Vital Signs Date Time Temp Pulse Resp B/P Pulse Ox O2 Delivery O2 Flow Rate FiO2 12/26/16 12:20 72 12/26/16 12:20 98.1 20 112/55 97 12/26/16 07:45 30 12/25/16 17:00 3.0 12/23/16 16:42 Room Air Intake and Output 12/25/16 12/25/16 12/26/16 15:00 23:00 07:00 Intake Total 300 ml 690 ml 400 ml Output Total 150 ml Balance 300 ml 540 ml 400 ml Exam Constitutional: alert, oriented, other (On Bipap) Head: atraumatic, normocephalic Neck: non-tender, supple Respiratory: clear to auscultation Cardiovascular: regular rate and rhythm Gastrointestinal: nl liver, spleen, non-tender, soft Musculoskeletal: other (cellulitis left foot) Results Result Diagram: 12/25/16 0727 12/25/16 0727 Results 24 hrs Laboratory Tests Test 12/25/16 17:01 12/25/16 20:59 12/26/16 02:50 12/26/16 07:45 Bedside Glucose 91 175 131 97 Test 12/26/16 12:27 Bedside Glucose 181 Medications Medications Current Medications Ondansetron HCl (Zofran Inj) 4 mg Q6H PRN IV NAUSEA AND/OR VOMITING Last administered on 12/13/16t 01:13; Admin Dose 4 MG; Start 12/02/16 at 22:30 Miscellaneous Information 1 ea NOTE XX ; Start 12/02/16 at 23:00 Glucose (Glutose) 15 gm Q15M PRN PO DECREASED GLUCOSE; Start 12/02/16 at 23:00 Glucose (Glutose) 22.5 gm Q15M PRN PO DECREASED GLUCOSE; Start 12/02/16 at 23: 00 Dextrose (D50w Syringe) 25 ml Q15M PRN IV DECREASED GLUCOSE Last administered on 12/10/16 05:52; Admin Dose 25 ML; Start 12/02/16 at 23:00 Dextrose (D50w Syringe) 50 ml Q15M PRN IV DECREASED GLUCOSE; Start 12/02/16 at 23:00 Glucagon (Glucagen) 1 mg Q15M PRN IM DECREASED GLUCOSE; Start 12/02/16 at 23:00 Glucose (Glutose) 15 gm Q15M PRN BUCCAL DECREASED GLUCOSE; Start 12/02/16 at 23 :00 Gabapentin (Neurontin) 800 mg TID PO Last administered on 12/08/16 20:33; Admin Dose 800 MG; Start 12/03/16 at 09:00; Status Future Hold Meclizine HCl (Antivert) 25 mg TID PRN PO dizziness Last administered on 09:37; Admin Dose 25 MG; Start 12/02/16 at 23:00 Terazosin HCl (Hytrin) 5 mg HS PO Last administered on 12/07/16 20:28; Admin Dose 5 MG; Start 12/03/16 at 21:00; Status Future Hold Acetaminophen/ Hydrocodone Bitart ([place] (5/325)) 1 tab Q6H PRN PO PAIN LEVEL 4 -7 Last administered on 12/23/16 22:14; Admin Dose 1 TAB; Start 12/02/16 at 23: 30 Acetaminophen (Tylenol Tab) 650 mg Q6H PRN PO PAIN AND OR ELEVATED TEMP Last administered on 12/18/16 10:44; Admin Dose 650 MG; Start 12/02/16 at 23:30 Docusate Sodium (Colace) 100 mg BID PO Last administered on 12/08/16 20:32; Admin Dose 100 MG; Start 12/03/16 at 09:00; Status Future Hold Zolpidem Tartrate (Ambien) 5 mg HS PRN PO INSOMNIA Last administered on 00:45; Admin Dose 5 MG; Start 12/02/16 at 23:30 Benazepril HCl (Lotensin) 10 mg DAILY PO Last administered on 12/07/16 08:26; Admin Dose 10 MG; Start 12/04/16 at 09:00; Status Future Hold Collagenase (Santyl) 1 applic DAILY TOP Last administered on 12/26/16 09:08; Admin Dose 1 APPLIC; Start 12/07/16 at 16:00 Lorazepam (Ativan) 2 mg Q2 PRN IV AGITATION/ANXIETY Last administered on 21:54; Admin Dose 2 MG; Start 12/09/16 at 09:30 Morphine Sulfate (morphine) 2 mg Q2H PRN IV PAIN Last administered on 12/20/16 03:22; Admin Dose 2 MG; Start 12/09/16 at 09:30 Acetaminophen 650 mg 650 mg Q6H PRN [place] ELEVATED TEMPERATURE Last administered on 12/09/16 17:53; Admin Dose 650 MG; Start 12/09/16 at 17:00 Piperacillin Sod/ Tazobactam Sod (Zosyn 2.25gm/ 50ml (Pmx)) 50 ml @ 100 mls/hr Q12 IVPB Last administered on 12/26/16 09:06; Admin Dose 100 MLS/HR; Start at 21:00 Metoprolol Tartrate (Lopressor) 5 mg Q4H PRN IV HR>100 Last administered on 22:23; Admin Dose 5 MG; Start 12/09/16 at 17:48 Amiodarone HCl (Cordarone) 200 mg BID PO Last administered on 12/26/16 09:07; Admin Dose 200 MG; Start 12/10/16 at 13:00 Hydralazine HCl (Apresoline) 10 mg Q6H PRN IV SBP>150mm hg Last administered on 12/19/16 08:50; Admin Dose 10 MG; Start 12/11/16 at 10:30 Morphine Sulfate 2 mg 2 mg Q2H PRN IV PAIN LEVEL 4-7; Start 12/13/16 at 10:00 Caspofungin/ Sodium Chloride (Cancidas/NS) 250 ml @ 250 mls/hr Q24H IVPB Last administered on 12/26/16 12:37; Admin Dose 250 MLS/HR; Start 12/15/16 at 11:00 Metoprolol Tartrate (Lopressor) 12.5 mg BID PO Last administered on 12/26/16 09:07; Admin Dose 12.5 MG; Start 12/16/16 at 21:00 Pantoprazole (Protonix Tab) 40 mg DAILY@06 PO Last administered on 12/26/16 06 :01; Admin Dose 40 MG; Start 12/23/16 at 06:00 Aspirin (Ecotrin) 325 mg DAILY PO Last administered on 12/26/16 09:07; Admin Dose 325 MG; Start 12/24/16 at 09:00 Insulin Glargine (Lantus) 22 unit DAILY@20 SC Last administered on 12/25/16 21 :02; Admin Dose 22 UNIT; Start 12/25/16 at 20:00 Diagnostic Test (Pha) (Accu-Chek) 1 ea 02 XX Last administered on 12/26/16 02: 00; Admin Dose 1 EA; Start 12/25/16 at 02:00 VIRI ROY M.D. December 26, 2016 14:02
--- NOTE | 2016-12-26 14:31 | CONS ---
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 Blood cultures from HD catheter on 12/13/2016 are negative to date. 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 superficial swab grew inna only - right pleural effusion s/p thoracentesis with .9L removed on 12/16/2016; (Note: there is no pleural fluid cx since orders were placed after Right thoracentesis , and Left thoracentesis was not performed on 12/17/16 d/t insufficient fluid) - funguria - ARANZA, on HD from 12/09/2016 - A fib; now in SR - troponin+ - small nonreversible perfusion abnormality in the inferoapical and inferior carver; EF 36% per Lexiscan 12/24/2016 - severe , EF 40-45% per TTE 12/17/16 - DM - Hgb A1c 8.7% - HTN associated with DM - Hypoxia requiring Bipap ?fluid overload recommendations: - continue caspofungin (12/14/2016-) for fungemia; check CMP tomorrow - continue renally dosed pip/tazo (12/03/2016) empirically for diabetic foot infection, and sepsis (s/p linezolid) - ultimately, Pt needs 6 weeks of antibiotics to treat 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 and left fourth proximal phalanx: 12/03/2016 through 01/15/2017 management d/w Pt, his and RN Problems: Consultation Date/Type/Reason Admit Date/Time Dec 02, 2016 at 21:01 Initial Consult Date 12/03/16 Type of Consultation: Infectious Disease Referring Provider: VIET PARKER MD 24 HR Interval Summary Constitutional: no complaints Detailed Summary Eyes: no complaints ENT: no complaints Respiratory: no complaints Cardiovascular: no complaints Gastrointestinal: no complaints Genitourinary: other (anuric) Musculoskeletal: no complaints Skin: skin lesions (L 1st toe) Neurologic: no complaints Exam/Review of Systems Vital Signs Vitals Vital Signs Date Time Temp Pulse Resp B/P Pulse Ox O2 Delivery O2 Flow Rate FiO2 12/26/16 12:20 72 12/26/16 12:20 98.1 20 112/55 97 12/26/16 07:45 30 12/25/16 17:00 3.0 12/23/16 16:42 Room Air Intake and Output 12/25/16 12/25/16 12/26/16 15:00 23:00 07:00 Intake Total 300 ml 690 ml 400 ml Output Total 150 ml Balance 300 ml 540 ml 400 ml Exam Constitutional: alert Psych: no complaints Head: atraumatic, normocephalic Eyes: nl conjunctiva, nl lids ENMT: nl external ears & nose, nl nasal mucosa & septum Neck: supple Respiratory: crackles/rales Cardiovascular: nl pulses, regular rate and rhythm Gastrointestinal: non-tender, soft Musculoskeletal: nl extremities to inspection Extremities: No edema Neurological: GROCERY SACKER II-XII intact, nl mental status, nl speech Skin: rash or lesions (L 1st toe: plantar aspect has eschar, dry non-TTP) Results Result Diagram: 12/25/16 0712/25/16 0727 Results 24 hrs Laboratory Tests Test 12/25/16 17:01 12/25/16 20:59 12/26/16 02:50 12/26/16 07:45 Bedside Glucose 91 175 131 97 Test 12/26/16 12:27 Bedside Glucose 181 Medications Medications Current Medications Ondansetron HCl (Zofran Inj) 4 mg Q6H PRN IV NAUSEA AND/OR VOMITING Last administered on 12/13/16 01:13; Admin Dose 4 MG; Start 12/02/16 at 22:30 Miscellaneous Information 1 ea NOTE XX ; Start 12/02/16 at 23:00 Glucose (Glutose) 15 gm Q15M PRN PO DECREASED GLUCOSE; Start 12/02/16 at 23:00 Glucose (Glutose) 22.5 gm Q15M PRN PO DECREASED GLUCOSE; Start 12/02/16 at 23: 00 Dextrose (D50w Syringe) 25 ml Q15M PRN IV DECREASED GLUCOSE Last administered on 12/10/16 05:52; Admin Dose 25 ML; Start 12/02/16 at 23:00 Dextrose (D50w Syringe) 50 ml Q15M PRN IV DECREASED GLUCOSE; Start 12/02/16 at 23:00 Glucagon (Glucagen) 1 mg Q15M PRN IM DECREASED GLUCOSE; Start 12/02/16 at 23:00 Glucose (Glutose) 15 gm Q15M PRN BUCCAL DECREASED GLUCOSE; Start 12/02/16 at 23 :00 Gabapentin (Neurontin) 800 mg TID PO Last administered on 12/08/16 20:33; Admin Dose 800 MG; Start 12/03/16 at 09:00; Status Future Hold Meclizine HCl (Antivert) 25 mg TID PRN PO dizziness Last administered on 09:37; Admin Dose 25 MG; Start 12/02/16 at 23:00 Terazosin HCl (Hytrin) 5 mg HS PO Last administered on 12/07/16 20:28; Admin Dose 5 MG; Start 12/03/16 at 21:00; Status Future Hold Acetaminophen/ Hydrocodone Bitart ([place] (5/325)) 1 tab Q6H PRN PO PAIN LEVEL 4 -7 Last administered on 12/23/16 22:14; Admin Dose 1 TAB; Start 12/02/16 at 23: 30 Acetaminophen (Tylenol Tab) 650 mg Q6H PRN PO PAIN AND OR ELEVATED TEMP Last administered on 12/18/16 10:44; Admin Dose 650 MG; Start 12/02/16 at 23:30 Docusate Sodium (Colace) 100 mg BID PO Last administered on 12/08/16 20:32; Admin Dose 100 MG; Start 12/03/16 at 09:00; Status Future Hold Zolpidem Tartrate (Ambien) 5 mg HS PRN PO INSOMNIA Last administered on 00:45; Admin Dose 5 MG; Start 12/02/16 at 23:30 Benazepril HCl (Lotensin) 10 mg DAILY PO Last administered on 12/07/16 08:26; Admin Dose 10 MG; Start 12/04/16 at 09:00; Status Future Hold Collagenase (Santyl) 1 applic DAILY TOP Last administered on 12/26/16 09:08; Admin Dose 1 APPLIC; Start 12/07/16 at 16:00 Lorazepam (Ativan) 2 mg Q2 PRN IV AGITATION/ANXIETY Last administered on 21:54; Admin Dose 2 MG; Start 12/09/16 at 09:30 Morphine Sulfate (morphine) 2 mg Q2H PRN IV PAIN Last administered on 12/20/16 03:22; Admin Dose 2 MG; Start 12/09/16 at 09:30 Acetaminophen 650 mg 650 mg Q6H PRN [place] ELEVATED TEMPERATURE Last administered on 12/09/16 17:53; Admin Dose 650 MG; Start 12/09/16 at 17:00 Piperacillin Sod/ Tazobactam Sod (Zosyn 2.25gm/ 50ml (Pmx)) 50 ml @ 100 mls/hr Q12 IVPB Last administered on 12/26/16 09:06; Admin Dose 100 MLS/HR; Start at 21:00 Metoprolol Tartrate (Lopressor) 5 mg Q4H PRN IV HR>100 Last administered on 22:23; Admin Dose 5 MG; Start 12/09/16 at 17:48 Hydralazine HCl (Apresoline) 10 mg Q6H PRN IV SBP>150mm hg Last administered on 12/19/16 08:50; Admin Dose 10 MG; Start 12/11/16 at 10:30 Morphine Sulfate 2 mg 2 mg Q2H PRN IV PAIN LEVEL 4-7; Start 12/13/16 at 10:00 Caspofungin/ Sodium Chloride (Cancidas/NS) 250 ml @ 250 mls/hr Q24H IVPB Last administered on 12/26/16 12:37; Admin Dose 250 MLS/HR; Start 12/15/16 at 11:00 Metoprolol Tartrate (Lopressor) 12.5 mg BID PO Last administered on 12/26/16 09:07; Admin Dose 12.5 MG; Start 12/16/16 at 21:00 Pantoprazole (Protonix Tab) 40 mg DAILY@06 PO Last administered on 12/26/16 06 :01; Admin Dose 40 MG; Start 12/23/16 at 06:00 Aspirin (Ecotrin) 325 mg DAILY PO Last administered on 12/26/16 09:07; Admin Dose 325 MG; Start 12/24/16 at 09:00 Insulin Glargine (Lantus) 22 unit DAILY@20 SC Last administered on 12/25/16 21 :02; Admin Dose 22 UNIT; Start 12/25/16 at 20:00 Diagnostic Test (Pha) (Accu-Chek) 1 ea 02 XX Last administered on 12/26/16 02: 00; Admin Dose 1 EA; Start 12/25/16 at 02:00 CHRISTY LOPEZ M.D. December 26, 2016 14:31
[2016-12-26] MEDS: INSULIN GLARGINE [LANtus] 3 ML PEN SC SCH (19:57)
[2016-12-27] VITALS (22 sets, daily range): BP systolic 125–151; BP diastolic 60–72; PULSE 60–97; RESP 18–24
[2016-12-27] MEDS: ACCU-CHEK XX SCH (02:42)
[2016-12-27] MEDS: PANTOPRAZOLE (EC) 40 MG TAB PO SCH (05:56)
[2016-12-27 07:14] LABS: ADD SCAN DIFF NO
[2016-12-27 07:22] LABS: BASOPHILS % 0.5 % (0.0-2.0); EOSINOPHILS # 0.2 10^3/ul (0.0-0.5); EOSINOPHILS % 2.1 % (0.0-7.0); HEMATOCRIT 27.2 % (42.0-52.0); HEMOGLOBIN 8.5 g/dl (14.0-18.0); LYMPHOCYTES # 0.7 10^3/ul (0.8-2.9); LYMPHOCYTES % 9.3 % (15.0-51.0); MEAN CORPUSCULAR HEMOGLOBIN 30.7 pg (29.0-33.0); MEAN CORPUSCULAR HGB CONC 31.3 g/dl (32.0-37.0); MEAN CORPUSCULAR VOLUME 98.2 fl (82.0-101.0); MEAN PLATELET VOLUME 9.7 fl (7.4-10.4); MONOCYTE # 0.9 10^3/ul (0.3-0.9); MONOCYTES % 11.8 % (0.0-11.0); NEUTROPHIL # 5.7 10^3/ul (1.6-7.5); NEUTROPHILS % 75.2 % (39.0-77.0); PLATELET COUNT 137 10^3/UL (140-415); RED BLOOD COUNT 2.77 10^6/ul (4.70-6.10); RED CELL DISTRIBUTION WIDTH 13.7 % (11.5-14.5); WHITE BLOOD COUNT 7.5 10^3/ul (4.8-10.8)
[2016-12-27] MEDS: ALBUTEROL/IPRATROPIUM (NEB) 3 ML AMP HHN SCH ×3 (07:34→21:22)
[2016-12-27 07:41] LABS: ALBUMIN 3.4 g/dl (3.3-4.9)
[2016-12-27 07:44] LABS: ALBUMIN/GLOBULIN RATIO 0.97; BILIRUBIN,INDIRECT 0.3 mg/dl (0-1.1); BILIRUBIN,TOTAL 0.3 mg/dl (0.2-1.3); CALCIUM 7.9 mg/dl (8.4-10.2); CREATININE 7.32 mg/dl (0.61-1.24); TOTAL PROTEIN 6.9 g/dl (6.1-8.1)
[2016-12-27 07:47] LABS: INR 1.16; PROTIME 14.9 Sec (12.2-14.2); PT RATIO 1.2
[2016-12-27 07:48] LABS: PARTIAL THROMBOPLASTIN TIME 31.5 Sec (25.0-35.0)
[2016-12-27] MEDS: INSULIN ASPART [NOVOLOG] 3 ML PEN SC SCH ×3 (07:53→17:42)
[2016-12-27] MEDS: METOPROLOL 25 MG TAB PO SCH ×2 (08:22→20:21)
[2016-12-27] MEDS: ASPIRIN (EC) 325 MG TAB PO SCH (08:22)
[2016-12-27] MEDS: PIPER-TAZO 2.25 GM (PMX) 50 ML IVPB SCH ×2 (08:58→20:21)
[2016-12-27] MEDS: COLLAGENASE 30 GM TUBE TOP SCH (08:59)
--- NOTE | 2016-12-27 11:02 | CONS ---
Date/Time of Note Date/Time of Note DATE: 12/27/16 TIME: 11:00 Assessment/Plan Assessment/Plan Additional Assessment/Plan Assessment recommendations; 1. Patient admitted for respiratory failure due to acute pulmonary edema no successfully extubated several days ago. 2. Mild pulmonary edema not requiring BiPAP, patient got hemodialysis today. 3. Renal failure, on hemodialysis. 4. Diabetes, and hypertension. 5. Pneumonia. As well as left foot cellulitis. Continue current treatment. Wean off BiPAP after dialysis. Consultation Date/Type/Reason Admit Date/Time Dec 02, 2016 at 21:01 Initial Consult Date 12/03/16 Type of Consultation: Pulmonary Referring Provider: VIET PARKER MD 24 HR Interval Summary Free Text/Dictation Patient was complaining of mild shortness of breath this morning had to be started on BiPAP with improvement in symptoms. Denies any chest pain, wheezing , sputum production. Next General exam; elderly male, on BiPAP, currently in no distress, awake and alert. Exam/Review of Systems Vital Signs Vitals Vital Signs Date Time Temp Pulse Resp B/P Pulse Ox O2 Delivery O2 Flow Rate FiO2 12/27/16 10:32 67 98 30 12/27/16 07:32 98.3 18 131/60 12/26/16 19:12 2.0 12/26/16 19:12 Nasal Cannula Intake and Output 12/26/16 12/26/16 12/27/16 15:00 23:00 07:00 Intake Total 700 ml 530 ml 200 ml Output Total 2400 ml 200 ml Balance -1700 ml 530 ml 0 ml Exam HEENT examination; supple neck, positive JVD. No lymphadenopathy. Midline trachea. Patient does not multiple carious teeth. Chest examination; diminished breath on lung bases bilaterally. Upper lobes are clear. S1-S2 audible, no murmurs. Regular rhythm. Abdomen examination; soft, nondistended. Nontender. Bowel is audible. Extremity exam is; no peripheral edema. There is a dressing applied over the left foot. [facility] examination; no focal deficit. Results Result Diagram: 12/27/16 0547 12/27/16 0547 Results 24 hrs Laboratory Tests Test 12/26/16 12:27 12/26/16 17:17 12/26/16 19:51 12/27/16 02:39 Bedside Glucose 181 142 176 135 Test 12/27/16 05:47 12/27/16 07:26 White Blood Count 7.5 # Red Blood Count 2.77 L Hemoglobin 8.5 L Hematocrit 27.2 L Mean Corpuscular Volume 98.2 Mean Corpuscular Hemoglobin 30.7 Mean Corpuscular Hemoglobin Concent 31.3 L Red Cell Distribution Width 13.7 Platelet Count 137 #L Mean Platelet Volume 9.7 Neutrophils % 75.2 Lymphocytes % 9.3 L Monocytes % 11.8 H Eosinophils % 2.1 Basophils % 0.5 Nucleated Red Blood Cells % 0.0 Neutrophils # 5.7 Lymphocytes # 0.7 L Monocytes # 0.9 Eosinophils # 0.2 Basophils # 0.0 Nucleated Red Blood Cells # 0.0 Prothrombin Time 14.9 H Prothrombin Time Ratio 1.2 INR International Normalized Ratio 1.16 Activated Partial Thromboplast Time 31.5 Sodium Level 137 Potassium Level 4.0 Chloride Level 99 Carbon Dioxide Level 25 Anion Gap 17 H Blood Urea Nitrogen 46 H Creatinine 7.32 H Glucose Level 122 Calcium Level 7.9 L Total Bilirubin 0.3 Direct Bilirubin 0.00 Indirect Bilirubin 0.3 Aspartate Amino Transf (AST/SGOT) 18 Alanine Aminotransferase (ALT/SGPT) 24 Alkaline Phosphatase 62 Total Protein 6.9 Albumin 3.4 Globulin 3.50 H Albumin/Globulin Ratio 0.97 Bedside Glucose 133 Medications Medications Current Medications Ondansetron HCl (Zofran Inj) 4 mg Q6H PRN IV NAUSEA AND/OR VOMITING Last administered on 12/13/16 01:13; Admin Dose 4 MG; Start 12/02/16 at 22:30 Miscellaneous Information 1 ea NOTE XX ; Start 12/02/16 at 23:00 Glucose (Glutose) 15 gm Q15M PRN PO DECREASED GLUCOSE; Start 12/02/16 at 23:00 Glucose (Glutose) 22.5 gm Q15M PRN PO DECREASED GLUCOSE; Start 12/02/16 at 23: 00 Dextrose (D50w Syringe) 25 ml Q15M PRN IV DECREASED GLUCOSE Last administered on 12/10/16 05:52; Admin Dose 25 ML; Start 12/02/16 at 23:00 Dextrose (D50w Syringe) 50 ml Q15M PRN IV DECREASED GLUCOSE; Start 12/02/16 at 23:00 Glucagon (Glucagen) 1 mg Q15M PRN IM DECREASED GLUCOSE; Start 12/02/16 at 23:00 Glucose (Glutose) 15 gm Q15M PRN BUCCAL DECREASED GLUCOSE; Start 12/02/16 at 23 :00 Gabapentin (Neurontin) 800 mg TID PO Last administered on 12/08/16 20:33; Admin Dose 800 MG; Start 12/03/16 at 09:00; Status Future Hold Meclizine HCl (Antivert) 25 mg TID PRN PO dizziness Last administered on 09:37; Admin Dose 25 MG; Start 12/02/16 at 23:00 Terazosin HCl (Hytrin) 5 mg HS PO Last administered on 12/07/16 20:28; Admin Dose 5 MG; Start 12/03/16 at 21:00; Status Future Hold Acetaminophen/ Hydrocodone Bitart ([place] (5/325)) 1 tab Q6H PRN PO PAIN LEVEL 4 -7 Last administered on 12/23/16 22:14; Admin Dose 1 TAB; Start 12/02/16 at 23: 30 Acetaminophen (Tylenol Tab) 650 mg Q6H PRN PO PAIN AND [place] ELEVATED TEMP Last administered on 12/18/16 10:44; Admin Dose 650 MG; Start 12/02/16 at 23:30 Docusate Sodium (Colace) 100 mg BID PO Last administered on 12/08/16 20:32; Admin Dose 100 MG; Start 12/03/16 at 09:00; Status Future Hold Zolpidem Tartrate (Ambien) 5 mg HS PRN PO INSOMNIA Last administered on 00:45; Admin Dose 5 MG; Start 12/02/16 at 23:30 Benazepril HCl (Lotensin) 10 mg DAILY PO Last administered on 12/07/16 08:26; Admin Dose 10 MG; Start 12/04/16 at 09:00; Status Future Hold Collagenase (Santyl) 1 applic DAILY TOP Last administered on 12/27/16 08:59; Admin Dose 1 APPLIC; Start 12/07/16 at 16:00 Lorazepam (Ativan) 2 mg Q2 PRN IV AGITATION/ANXIETY Last administered on 21:54; Admin Dose 2 MG; Start 12/09/16 at 09:30 Morphine Sulfate (morphine) 2 mg Q2H PRN IV PAIN Last administered on 12/20/16 03:22; Admin Dose 2 MG; Start 12/09/16 at 09:30 Acetaminophen 650 mg 650 mg Q6H PRN [place] ELEVATED TEMPERATURE Last administered on 12/09/16 17:53; Admin Dose 650 MG; Start 12/09/16 at 17:00 Piperacillin Sod/ Tazobactam Sod (Zosyn 2.25gm/ 50ml (Pmx)) 50 ml @ 100 mls/hr Q12 IVPB Last administered on 12/27/16 08:58; Admin Dose 100 MLS/HR; Start at 21:00 Metoprolol Tartrate (Lopressor) 5 mg Q4H PRN IV HR>100 Last administered on 22:23; Admin Dose 5 MG; Start 12/09/16 at 17:48 Hydralazine HCl (Apresoline) 10 mg Q6H PRN IV SBP>150mm hg Last administered on 12/19/16 08:50; Admin Dose 10 MG; Start 12/11/16 at 10:30 Morphine Sulfate 2 mg 2 mg Q2H PRN IV PAIN LEVEL 4-7; Start 12/13/16 at 10:00 Caspofungin/ Sodium Chloride (Cancidas/NS) 250 ml @ 250 mls/hr Q24H IVPB Last administered on 12/26/16 12:37; Admin Dose 250 MLS/HR; Start 12/15/16 at 11:00 Metoprolol Tartrate (Lopressor) 12.5 mg BID PO Last administered on 12/26/16 20:38; Admin Dose 12.5 MG; Start 12/16/16 at 21:00 Pantoprazole (Protonix Tab) 40 mg DAILY@06 PO Last administered on 12/26/16 06 :01; Admin Dose 40 MG; Start 12/23/16 at 06:00 Aspirin (Ecotrin) 325 mg DAILY PO Last administered on 12/26/16 09:07; Admin Dose 325 MG; Start 12/24/16 at 09:00 Insulin Glargine (Lantus) 22 unit DAILY@20 SC Last administered on 12/26/16 19 :57; Admin Dose 22 UNIT; Start 12/25/16 at 20:00 Diagnostic Test (Pha) (Accu-Chek) 1 ea 02 XX Last administered on 12/27/16t 02: 42; Admin Dose 1 EA; Start 12/25/16 at 02:00 IKE MULLER December 27, 2016 11:02
[2016-12-27] MEDS: CASPOFUNGIN 50 MG in SOD CHLORIDE 0.9% 250 ML IVPB SCH (11:07)
--- NOTE | 2016-12-27 13:59 | CONS ---
Date/Time of Note Date/Time of Note DATE: 12/27/16 TIME: 13:56 Assessment/Plan Assessment/Plan Additional Assessment/Plan 1. Oliguric to Anuric Acute kidney injury 2/2 ATN- started on HD on 12/09/16 for acute fluid overload and Pulmonary edema 2. acute resp failure intubated on ventilator -now extubated on 12/10/2016- then again reintubated on 12/13/2016- now self extubated on 12/18/16 3. Moderate to large right pleural effusion s/p Right thoracentesis 900 cc drained on 12/16/16 2. Left foot diabetic ulcer/cellulitis currently on IV antibiotics, Zosyn and vancomycin. 3. History of diabetes mellitus, insulin-dependent with lower extremity neuropathy. 4. History of hypertension. 5. History of aortic stenosis with diastolic dysfunction with ejection fraction 60% on echocardiogram. PLAN: s/p right thoracentesis 900 cc drained on 12/16/16, Us showed small left pleural effusion S/p lexiscan showed non reversible perfusion defect with EF39% - also discussed with family about Permacath placement - possible plan for permacath today- follow up blood cx has been negative to date from 12/13/16 will do CXR for HD placement after permacath placement case management for HD placement requested will continue to follow up Consultation Date/Type/Reason Admit Date/Time Dec 02, 2016 at 21:01 Initial Consult Date Type of Consultation: NEPHROLOGY Referring Provider: VIET PARKER MD 24 HR Interval Summary Free Text/Dictation Plan for permacath today, not done yet Exam/Review of Systems Vital Signs Vitals Vital Signs Date Time Temp Pulse Resp B/P Pulse Ox O2 Delivery O2 Flow Rate FiO2 12/27/16 13:25 73 98 30 12/27/16 12:02 98.4 18 127/67 12/26/16 19:12 2.0 12/26/16 19:12 Nasal Cannula Intake and Output 12/26/16 12/26/16 12/27/16 15:00 23:00 07:00 Intake Total 700 ml 530 ml 200 ml Output Total 2400 ml 200 ml Balance -1700 ml 530 ml 0 ml Results Result Diagram: 12/27/16 0547 12/27/16 0547 Results 24 hrs Laboratory Tests Test 5/14/17 17:17 12/26/16 19:51 12/27/16 02:39 12/27/16 05:47 Bedside Glucose 142 176 135 White Blood Count 7.5 # Red Blood Count 2.77 L Hemoglobin 8.5 L Hematocrit 27.2 L Mean Corpuscular Volume 98.2 Mean Corpuscular Hemoglobin 30.7 Mean Corpuscular Hemoglobin Concent 31.3 L Red Cell Distribution Width 13.7 Platelet Count 137 #L Mean Platelet Volume 9.7 Neutrophils % 75.2 Lymphocytes % 9.3 L Monocytes % 11.8 H Eosinophils % 2.1 Basophils % 0.5 Nucleated Red Blood Cells % 0.0 Neutrophils # 5.7 Lymphocytes # 0.7 L Monocytes # 0.9 Eosinophils # 0.2 Basophils # 0.0 Nucleated Red Blood Cells # 0.0 Prothrombin Time 14.9 H Prothrombin Time Ratio 1.2 INR International Normalized Ratio 1.16 Activated Partial Thromboplast Time 31.5 Sodium Level 137 Potassium Level 4.0 Chloride Level 99 Carbon Dioxide Level 25 Anion Gap 17 H Blood Urea Nitrogen 46 H Creatinine 7.32 H Glucose Level 122 Calcium Level 7.9 L Total Bilirubin 0.3 Direct Bilirubin 0.00 Indirect Bilirubin 0.3 Aspartate Amino Transf (AST/SGOT) 18 Alanine Aminotransferase (ALT/SGPT) 24 Alkaline Phosphatase 62 Total Protein 6.9 Albumin 3.4 Globulin 3.50 H Albumin/Globulin Ratio 0.97 Test 12/27/16 07:26 12/27/16 11:10 Bedside Glucose 133 134 Medications Medications Current Medications Ondansetron HCl (Zofran Inj) 4 mg Q6H PRN IV NAUSEA AND/OR VOMITING Last administered on 12/13/16 01:13; Admin Dose 4 MG; Start 12/02/16 at 22:30 Miscellaneous Information 1 ea NOTE XX ; Start 12/02/16 at 23:00 Glucose (Glutose) 15 gm Q15M PRN PO DECREASED GLUCOSE; Start 12/02/16 at 23:00 Glucose (Glutose) 22.5 gm Q15M PRN PO DECREASED GLUCOSE; Start 12/02/16 at 23: 00 Dextrose (D50w Syringe) 25 ml Q15M PRN IV DECREASED GLUCOSE Last administered on 12/10/16 05:52; Admin Dose 25 ML; Start 12/02/16 at 23:00 Dextrose (D50w Syringe) 50 ml Q15M PRN IV DECREASED GLUCOSE; Start 12/02/16 at 23:00 Glucagon (Glucagen) 1 mg Q15M PRN IM DECREASED GLUCOSE; Start 12/02/16 at 23:00 Glucose (Glutose) 15 gm Q15M PRN BUCCAL DECREASED GLUCOSE; Start 12/02/16 at 23 :00 Gabapentin (Neurontin) 800 mg TID PO Last administered on 12/08/16 20:33; Admin Dose 800 MG; Start 12/03/16 at 09:00; Status Future Hold Meclizine HCl (Antivert) 25 mg TID PRN PO dizziness Last administered on 09:37; Admin Dose 25 MG; Start 12/02/16 at 23:00 Terazosin HCl (Hytrin) 5 mg HS PO Last administered on 12/07/16 20:28; Admin Dose 5 MG; Start 12/03/16 at 21:00; Status Future Hold Acetaminophen/ Hydrocodone Bitart ([place] (5/325)) 1 tab Q6H PRN PO PAIN LEVEL 4 -7 Last administered on 12/23/16 22:14; Admin Dose 1 TAB; Start 12/02/16 at 23: 30 Acetaminophen (Tylenol Tab) 650 mg Q6H PRN PO PAIN AND OR ELEVATED TEMP Last administered on 12/18/16 10:44; Admin Dose 650 MG; Start 12/02/16 at 23:30 Docusate Sodium (Colace) 100 mg BID PO Last administered on 12/08/16 20:32; Admin Dose 100 MG; Start 12/03/16 at 09:00; Status Future Hold Zolpidem Tartrate (Ambien) 5 mg HS PRN PO INSOMNIA Last administered on 00:45; Admin Dose 5 MG; Start 12/02/16 at 23:30 Benazepril HCl (Lotensin) 10 mg DAILY PO Last administered on 12/07/16 08:26; Admin Dose 10 MG; Start 12/04/16 at 09:00; Status Future Hold Collagenase (Santyl) 1 applic DAILY TOP Last administered on 12/27/16 08:59; Admin Dose 1 APPLIC; Start 12/07/16 at 16:00 Lorazepam (Ativan) 2 mg Q2 PRN IV AGITATION/ANXIETY Last administered on 21:54; Admin Dose 2 MG; Start 12/09/16 at 09:30 Morphine Sulfate (morphine) 2 mg Q2H PRN IV PAIN Last administered on 12/20/16 03:22; Admin Dose 2 MG; Start 12/09/16 at 09:30 Acetaminophen 650 mg 650 mg Q6H PRN [place] ELEVATED TEMPERATURE Last administered on 12/09/16 17:53; Admin Dose 650 MG; Start 12/09/16 at 17:00 Piperacillin Sod/ Tazobactam Sod (Zosyn 2.25gm/ 50ml (Pmx)) 50 ml @ 100 mls/hr Q12 IVPB Last administered on 12/27/16 08:58; Admin Dose 100 MLS/HR; Start at 21:00 Metoprolol Tartrate (Lopressor) 5 mg Q4H PRN IV HR>100 Last administered on 22:23; Admin Dose 5 MG; Start 12/09/16 at 17:48 Hydralazine HCl (Apresoline) 10 mg Q6H PRN IV SBP>150mm hg Last administered on 12/19/16 08:50; Admin Dose 10 MG; Start 12/11/16 at 10:30 Morphine Sulfate 2 mg 2 mg Q2H PRN IV PAIN LEVEL 4-7; Start 12/13/16 at 10:00 Caspofungin/ Sodium Chloride (Cancidas/NS) 250 ml @ 250 mls/hr Q24H IVPB Last administered on 12/27/16 11:07; Admin Dose 250 MLS/HR; Start 12/15/16 at 11:00 Metoprolol Tartrate (Lopressor) 12.5 mg BID PO Last administered on 12/26/16 20:38; Admin Dose 12.5 MG; Start 12/16/16 at 21:00 Pantoprazole (Protonix Tab) 40 mg DAILY@06 PO Last administered on 12/26/16 06 :01; Admin Dose 40 MG; Start 12/23/16 at 06:00 Aspirin (Ecotrin) 325 mg DAILY PO Last administered on 12/26/16 09:07; Admin Dose 325 MG; Start 12/24/16 at 09:00 Insulin Glargine (Lantus) 22 unit DAILY@20 SC Last administered on 12/26/16 19 :57; Admin Dose 22 UNIT; Start 12/25/16 at 20:00 Diagnostic Test (Pha) (Accu-Chek) 1 ea 02 XX Last administered on 12/27/16 02: 42; Admin Dose 1 EA; Start 12/25/16 at 02:00 TASHIA MCGARRY MD December 27, 2016 13:59
[2016-12-27] MEDS ORDERED: HEPARIN 1000 UNITS/NS (A-LINE) 1,000 ML ONE (14:52)
--- NOTE | 2016-12-27 15:26 | PN ---
Date/Time of Note Date/Time of Note DATE: 12/27/16 TIME: 15:22 Assessment/Plan VTE Prophylaxis VTE Prophylaxis Intervention: heparin Lines/Catheters IV C[facility] Type [facility]from [facility]): [facility] Urinary Cath still in place: No Assessment/Plan Chief Complaint/Hosp Course Assessment/Plan - Acute respiratory failure secondary to pulmonary edema, resolved. Dr. Alvarez is following from pulmonology standpoint. - Bilateral pleural effusion, this post right sided thoracentesis with removal of 900 cc of fluid. - Acute renal failure, Dr. Remy is following in nephrology consultation. Continue hemodialysis per nephrology. Pending permacath placement by vascular surgery. - Acute to subacute right occipital lobe ischemic infarct per CT, Dr Morris is following in neurology consultation. - Paroxysmal atrial fibrillation and positive troponin. Dr. Cobian is following and cardiology consultation. Status post Lexiscan on 12/24. - Fungemia, om Caspofungin. Dr. Pascual is following in infection disease consultation. - Diabetic foot ulcer of the left foot, Dr Lin is following in podiatry consultation. - Cellulitis of left foot, 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 and left fourth proximal phalanx per bone scan. Continue antibiotics per ID. - Aortic stenosis - Diastolic dysfunction congestive heart failure with preserved ejection fraction of 60%. - DM, Hgb A1c is 8.7, continue Lantus and pre-meal NovoLog and NovoLog per sliding scale. -Traumatic hematuria, resolved. Dr. Grey urology consult is appreciated. Further recommendations based on clinical course. Plan of care discussed with Dr. Heredia. Problems: Subjective 24 Hr Interval Summary Free Text/Dictation Patient is awake alert denies shortness of breath denies fever, pending permanent hemodialysis catheter placement. Exam/Review of Systems Vital Signs Vitals Vital Signs Date Time Temp Pulse Resp B/P Pulse Ox O2 Delivery O2 Flow Rate FiO2 12/27/16 13:25 73 98 30 12/27/16 12:02 98.4 18 127/67 12/26/16 19:12 2.0 12/26/16 19:12 Nasal Cannula Intake and Output 12/26/16 12/26/16 12/27/16 15:00 23:00 07:00 Intake Total 700 ml 530 ml 200 ml Output Total 2400 ml 200 ml Balance -1700 ml 530 ml 0 ml Exam onstitutional: awake, alert Psych: no complaints Head: atraumatic, normocephalic Eyes: nl conjunctiva ENMT: nl external ears & nose Neck: non-tender, supple Respiratory: clear to auscultation, normal air movement Cardiovascular: nl pulses, regular rate and rhythm, systolic murmur Gastrointestinal: non-tender, soft Musculoskeletal: nl extremities to inspection Extremities: normal pulses Neurological: alert *3 Skin: nl turgor, left big toe ulcer. Results Result Diagram: 12/27/16 0547 12/27/16 0547 Results 24 hrs Laboratory Tests Test 12/26/16 17:17 12/26/16 19:51 12/27/16 02:39 12/27/16 05:47 Bedside Glucose 142 176 135 White Blood Count 7.5 # Red Blood Count 2.77 L Hemoglobin 8.5 L Hematocrit 27.2 L Mean Corpuscular Volume 98.2 Mean Corpuscular Hemoglobin 30.7 Mean Corpuscular Hemoglobin Concent 31.3 L Red Cell Distribution Width 13.7 Platelet Count 137 #L Mean Platelet Volume 9.7 Neutrophils % 75.2 Lymphocytes % 9.3 L Monocytes % 11.8 H Eosinophils % 2.1 Basophils % 0.5 Nucleated Red Blood Cells % 0.0 Neutrophils # 5.7 Lymphocytes # 0.7 L Monocytes # 0.9 Eosinophils # 0.2 Basophils # 0.0 Nucleated Red Blood Cells # 0.0 Prothrombin Time 14.9 H Prothrombin Time Ratio 1.2 INR International Normalized Ratio 1.16 Activated Partial Thromboplast Time 31.5 Sodium Level 137 Potassium Level 4.0 Chloride Level 99 Carbon Dioxide Level 25 Anion Gap 17 H Blood Urea Nitrogen 46 H Creatinine 7.32 H Glucose Level 122 Calcium Level 7.9 L Total Bilirubin 0.3 Direct Bilirubin 0.00 Indirect Bilirubin 0.3 Aspartate Amino Transf (AST/SGOT) 18 Alanine Aminotransferase (ALT/SGPT) 24 Alkaline Phosphatase 62 Total Protein 6.9 Albumin 3.4 Globulin 3.50 H Albumin/Globulin Ratio 0.97 Test 12/27/16 07:26 12/27/16 11:10 Bedside Glucose 133 134 Medications Medications Current Medications Ondansetron HCl (Zofran Inj) 4 mg Q6H PRN IV NAUSEA AND/OR VOMITING Last administered on 12/13/16 01:13; Admin Dose 4 MG; Start 12/02/16 at 22:30 Miscellaneous Information 1 ea NOTE XX ; Start 12/02/16 at 23:00 Glucose (Glutose) 15 gm Q15M PRN PO DECREASED GLUCOSE; Start 12/02/16 at 23:00 Glucose (Glutose) 22.5 gm Q15M PRN PO DECREASED GLUCOSE; Start 12/02/16 at 23: 00 Dextrose (D50w Syringe) 25 ml Q15M PRN IV DECREASED GLUCOSE Last administered on 12/10/16 05:52; Admin Dose 25 ML; Start 12/02/16 at 23:00 Dextrose (D50w Syringe) 50 ml Q15M PRN IV DECREASED GLUCOSE; Start 12/02/16 at 23:00 Glucagon (Glucagen) 1 mg Q15M PRN IM DECREASED GLUCOSE; Start 12/02/16 at 23:00 Glucose (Glutose) 15 gm Q15M PRN BUCCAL DECREASED GLUCOSE; Start 12/02/16 at 23 :00 Gabapentin (Neurontin) 800 mg TID PO Last administered on 12/08/16 20:33; Admin Dose 800 MG; Start 12/03/16 at 09:00; Status Future Hold Meclizine HCl (Antivert) 25 mg TID PRN PO dizziness Last administered on 09:37; Admin Dose 25 MG; Start 12/02/16 at 23:00 Terazosin HCl (Hytrin) 5 mg HS PO Last administered on 12/07/16 20:28; Admin Dose 5 MG; Start 12/03/16 at 21:00; Status Future Hold Acetaminophen/ Hydrocodone Bitart ([place] (5/325)) 1 tab Q6H PRN PO PAIN LEVEL 4 -7 Last administered on 12/23/16 22:14; Admin Dose 1 TAB; Start 12/02/16 at 23: 30 Acetaminophen (Tylenol Tab) 650 mg Q6H PRN PO PAIN AND OR ELEVATED TEMP Last administered on 12/18/16 10:44; Admin Dose 650 MG; Start 12/02/16 at 23:30 Docusate Sodium (Colace) 100 mg BID PO Last administered on 12/08/16 20:32; Admin Dose 100 MG; Start 12/03/16 at 09:00; Status Future Hold Zolpidem Tartrate (Ambien) 5 mg HS PRN PO INSOMNIA Last administered on 00:45; Admin Dose 5 MG; Start 12/02/16 at 23:30 Benazepril HCl (Lotensin) 10 mg DAILY PO Last administered on 12/07/16 08:26; Admin Dose 10 MG; Start 12/04/16 at 09:00; Status Future Hold Collagenase (Santyl) 1 applic DAILY TOP Last administered on 12/27/16 08:59; Admin Dose 1 APPLIC; Start 12/07/16 at 16:00 Lorazepam (Ativan) 2 mg Q2 PRN IV AGITATION/ANXIETY Last administered on 21:54; Admin Dose 2 MG; Start 12/09/16 at 09:30 Morphine Sulfate (morphine) 2 mg Q2H PRN IV PAIN Last administered on 12/20/16 03:22; Admin Dose 2 MG; Start 12/09/16 at 09:30 Acetaminophen 650 mg 650 mg Q6H PRN [place] ELEVATED TEMPERATURE Last administered on 12/09/16 17:53; Admin Dose 650 MG; Start 12/09/16 at 17:00 Piperacillin Sod/ Tazobactam Sod (Zosyn 2.25gm/ 50ml (Pmx)) 50 ml @ 100 mls/hr Q12 IVPB Last administered on 12/27/16 08:58; Admin Dose 100 MLS/HR; Start at 21:00 Metoprolol Tartrate (Lopressor) 5 mg Q4H PRN IV HR>100 Last administered on 22:23; Admin Dose 5 MG; Start 12/09/16 at 17:48 Hydralazine HCl (Apresoline) 10 mg Q6H PRN IV SBP>150mm hg Last administered on 12/19/16 08:50; Admin Dose 10 MG; Start 12/11/16 at 10:30 Morphine Sulfate 2 mg 2 mg Q2H PRN IV PAIN LEVEL 4-7; Start 12/13/16 at 10:00 Caspofungin/ Sodium Chloride (Cancidas/NS) 250 ml @ 250 mls/hr Q24H IVPB Last administered on 12/27/16 11:07; Admin Dose 250 MLS/HR; Start 12/15/16 at 11:00 Metoprolol Tartrate (Lopressor) 12.5 mg BID PO Last administered on 12/26/16 20:38; Admin Dose 12.5 MG; Start 12/16/16 at 21:00 Pantoprazole (Protonix Tab) 40 mg DAILY@06 PO Last administered on 12/26/16 06 :01; Admin Dose 40 MG; Start 12/23/16 at 06:00 Aspirin (Ecotrin) 325 mg DAILY PO Last administered on 12/26/16 09:07; Admin Dose 325 MG; Start 12/24/16 at 09:00 Insulin Glargine (Lantus) 22 unit DAILY@20 SC Last administered on 12/26/16 19 :57; Admin Dose 22 UNIT; Start 12/25/16 at 20:00 Diagnostic Test (Pha) (Accu-Chek) 1 ea 02 XX Last administered on 12/27/16 02: 42; Admin Dose 1 EA; Start 12/25/16 at 02:00 KIMBERLY NOYOLA December 27, 2016 15:26
--- NOTE | 2016-12-27 16:01 | RADRPT ---
PROCEDURE: PLACEMENT OF RIGHT INTERNAL JUGULAR VENOUS TUNNELED DIALYSIS CATHETER. CLINICAL INDICATION: Renal failure. TECHNIQUE: Prior to the procedure, informed consent was obtained. Risks including bleeding, infection, and pneu mothorax were explained to the patient and/or the patient's family. The patient and/or the patient's family understood and was willing to proceed. A procedural pause was performed. The patient's name, date of , and procedure to be performed were verified. The central line was inserted with all elements of maximal sterile barrier technique. All of the following were used: head covering, facial mask, sterile gown, sterile gloves, a large sterile sheet, hand hygiene, and 2% chlorhexidine for cutaneous antisepsis. The right neck and anterior/superior chest wall was prepped and draped in usu al sterile fashion. Limited sonography of the right neck was then performed. Noted is a patent right internal jugular ve in. Ultrasound images were recorded and stored in the patient's medical record. Following the local injection of Xylocaine, the right internal jugular vein was punctured under sono graphic guidance with a 20-gauge needle through which a 0.018 inch floppy tip guidewire was advanced into the superior vena cava. The tract was dilated to 5 Kinyarwanda and the wire was then replaced with a 0.035 in Amplatz guidewire. A tunnel was then created from the anterior lateral aspect of the sup erior right chest wall to the puncture site in the neck and the catheter was pulled through the trac t. Serial dilatation was then performed and a 16 Kinyarwanda peel away sheath was introduced. The 14.5 Kinyarwanda 23cm tip to cuff Angiodynamics BioFlo DuraMax dialysis catheter was advanced through the 16 F rench peel-away sheath. The tip of the catheter was confirmed in position within the right atrium. T he peel-away sheath was removed. The 2 ports were each flushed with 2.3 ml of 1:1000 heparin. The c atheter was secured to the skin with 2-0 silk. The wound in the neck was closed with 4-0 Vicryl suture using subcuticular running technique. The site was dressed. The patient tolerated the proce dure well. COMPARISON: None. FINDINGS: Final radiographic images demonstrate the tip of the catheter in the upper right atrium. A total of 0.2 minutes of fluoroscopy time was used. The ultrasound images demonstrate the needle entering th e jugular vein. Ultrasound images were recorded and stored in the patient's medical record. IMPRESSION: 1. Percutaneous insertion of right internal jugular dialysis tunneled dialysis catheter under fluoro scopic and sonographic guidance. RPTAT: QQ .Bruce Zurita MD, MD Date Time Electronically viewed and signed by .Bruce Zurita MD, MD on 12/27/2016 16:00 .R/
--- NOTE | 2016-12-27 16:33 | RADRPT ---
PROCEDURE: XR Chest. CLINICAL INDICATION: Shortness of breath. TECHNIQUE: Single frontal view. COMPARISON: 12/26/2016. FINDINGS: There is a new tunneled right internal jugular vein dialysis catheter with the tip in the cavoatrial junction region. There is bilateral air space and interstitial disease consistent with pulmonary e ruslan, unchanged. The lungs are otherwise clear. The heart size is normal. There is no pleural effusion. There is no pneumothorax. IMPRESSION: 1. Tunneled dialysis catheter in satisfactory position. 2. Unchanged pulmonary edema. 3. No pneumothorax. RPTAT: QQ .Bruce Zurita MD, MD Date Time Electronically viewed and signed by .Bruce Zurita MD, MD on 12/27/2016 16:33 .R/
--- NOTE | 2016-12-27 19:01 | CONS ---
Date/Time of Note Date/Time of Note DATE: 12/27/16 TIME: 18:54 Assessment/Plan Assessment/Plan Chief Complaint/Hosp Course IMPRESSION: 1. Atrial fibrillation-currently in SR/ST with PAC's 2. Hypotension-resolved off of pat 3. Abnormal electrocardiogram with inferolateral T-wave inversions. 4. Respiratory failure-s/p intubation and remains 5. Nonhealing toe ulceration-vascular following 6. Peripheral arterial disease by arterial ultrasound of the lower extremities this admission. 7. Diabetes mellitus. 8. Fevers. 9. Positive troponin-downtrended 10.Bradycardia-improved/stable 11.-sever by echo 12.Cardiomyopathy-EF 40-45% by echo/36% by stress with no ischemia but positive scar Recc: -Tele -serial ecg -HD for volume removal as necessary/nephrology following -Continue asa 325mg/heparin SQ for now and if no further procedures planned will start eliquis systemic anti-coag -Continue PO amio in attempt to maintain SR -low dose BB as tolerated only following HR closely -LHC/RHC likey when patient creatnine stable or definately to be continue of HD fdc to truly assess degree of Problems: Consultation Date/Type/Reason Admit Date/Time Dec 02, 2016 at 21:01 Initial Consult Date 12/03/16 Type of Consultation: Cardiology Reason for Consultation /cardiomyopathy Referring Provider: VIET PARKER MD Exam/Review of Systems Vital Signs Vitals Vital Signs Date Time Temp Pulse Resp B/P Pulse Ox O2 Delivery O2 Flow Rate FiO2 12/27/16 17:40 2.0 12/27/16 16:43 97.6 79 24 151/72 98 12/27/16 13:25 30 12/26/16 19:12 Nasal Cannula Intake and Output 12/26/16 12/26/16 12/27/16 15:00 23:00 07:00 Intake Total 700 ml 530 ml 200 ml Output Total 2400 ml 200 ml Balance -1700 ml 530 ml 0 ml Exam Review of Systems: CONSTITUTIONAL: No fevers, chills. PULMONARY: sob on BIPAP CARDIOVASCULAR: No chest pain/palpitations GASTROINTESTINAL: No nausea/vomiting. GENITOURINARY: No hematuria/dysuria. MUSCULOSKELETAL: No myagias/arthalgias. PSYCHIATRIC: The patient denies depression. NEUROLOGIC: No weakness Constitutional: alert Psych: no complaints Head: normocephalic ENMT: mucosa pink and moist Neck: jvd (9 cm watwer), supple Respiratory: diminished breath sounds (at bases/B) Cardiovascular: regular rate and rhythm Gastrointestinal: non-tender, soft Musculoskeletal: muscle tone (normal) Extremities: edema (trace/B) Results Result Diagram: 12/27/16 0547 12/27/16 0547 Results 24 hrs Laboratory Tests Test 12/26/16 19:51 12/27/16 02:39 12/27/16 05:47 12/27/16 07:26 Bedside Glucose 176 135 133 White Blood Count 7.5 # Red Blood Count 2.77 L Hemoglobin 8.5 L Hematocrit 27.2 L Mean Corpuscular Volume 98.2 Mean Corpuscular Hemoglobin 30.7 Mean Corpuscular Hemoglobin Concent 31.3 L Red Cell Distribution Width 13.7 Platelet Count 137 #L Mean Platelet Volume 9.7 Neutrophils % 75.2 Lymphocytes % 9.3 L Monocytes % 11.8 H Eosinophils % 2.1 Basophils % 0.5 Nucleated Red Blood Cells % 0.0 Neutrophils # 5.7 Lymphocytes # 0.7 L Monocytes # 0.9 Eosinophils # 0.2 Basophils # 0.0 Nucleated Red Blood Cells # 0.0 Prothrombin Time 14.9 H Prothrombin Time Ratio 1.2 INR International Normalized Ratio 1.16 Activated Partial Thromboplast Time 31.5 Sodium Level 137 Potassium Level 4.0 Chloride Level 99 Carbon Dioxide Level 25 Anion Gap 17 H Blood Urea Nitrogen 46 H Creatinine 7.32 H Glucose Level 122 Calcium Level 7.9 L Total Bilirubin 0.3 Direct Bilirubin 0.00 Indirect Bilirubin 0.3 Aspartate Amino Transf (AST/SGOT) 18 Alanine Aminotransferase (ALT/SGPT) 24 Alkaline Phosphatase 62 Total Protein 6.9 Albumin 3.4 Globulin 3.50 H Albumin/Globulin Ratio 0.97 Test 12/27/16 11:10 12/27/16 16:58 12/27/16 16:59 Bedside Glucose 134 187 158 Medications Medications Current Medications Ondansetron HCl (Zofran Inj) 4 mg Q6H PRN IV NAUSEA AND/OR VOMITING Last administered on 12/13/16t 01:13; Admin Dose 4 MG; Start 12/02/16 at 22:30 Miscellaneous Information 1 ea NOTE XX ; Start 12/02/16 at 23:00 Glucose (Glutose) 15 gm Q15M PRN PO DECREASED GLUCOSE; Start 12/02/16 at 23:00 Glucose (Glutose) 22.5 gm Q15M PRN PO DECREASED GLUCOSE; Start 12/02/16 at 23: 00 Dextrose (D50w Syringe) 25 ml Q15M PRN IV DECREASED GLUCOSE Last administered on 12/10/16 05:52; Admin Dose 25 ML; Start 12/02/16 at 23:00 Dextrose (D50w Syringe) 50 ml Q15M PRN IV DECREASED GLUCOSE; Start 12/02/16 at 23:00 Glucagon (Glucagen) 1 mg Q15M PRN IM DECREASED GLUCOSE; Start 12/02/16 at 23:00 Glucose (Glutose) 15 gm Q15M PRN BUCCAL DECREASED GLUCOSE; Start 12/02/16 at 23 :00 Gabapentin (Neurontin) 800 mg TID PO Last administered on 12/08/16 20:33; Admin Dose 800 MG; Start 12/03/16 at 09:00; Status Future Hold Meclizine HCl (Antivert) 25 mg TID PRN PO dizziness Last administered on 09:37; Admin Dose 25 MG; Start 12/02/16 at 23:00 Terazosin HCl (Hytrin) 5 mg HS PO Last administered on 12/07/16 20:28; Admin Dose 5 MG; Start 12/03/16 at 21:00; Status Future Hold Acetaminophen/ Hydrocodone Bitart ([place] (5/325)) 1 tab Q6H PRN PO PAIN LEVEL 4 -7 Last administered on 12/23/16 22:14; Admin Dose 1 TAB; Start 12/02/16 at 23: 30 Acetaminophen (Tylenol Tab) 650 mg Q6H PRN PO PAIN AND OR ELEVATED TEMP Last administered on 12/18/16 10:44; Admin Dose 650 MG; Start 12/02/16 at 23:30 Docusate Sodium (Colace) 100 mg BID PO Last administered on 12/08/16 20:32; Admin Dose 100 MG; Start 12/03/16 at 09:00; Status Future Hold Zolpidem Tartrate (Ambien) 5 mg HS PRN PO INSOMNIA Last administered on 00:45; Admin Dose 5 MG; Start 12/02/16 at 23:30 Benazepril HCl (Lotensin) 10 mg DAILY PO Last administered on 12/07/16 08:26; Admin Dose 10 MG; Start 12/04/16 at 09:00; Status Future Hold Collagenase (Santyl) 1 applic DAILY TOP Last administered on 12/27/16 08:59; Admin Dose 1 APPLIC; Start 12/07/16 at 16:00 Lorazepam (Ativan) 2 mg Q2 PRN IV AGITATION/ANXIETY Last administered on 21:54; Admin Dose 2 MG; Start 12/09/16 at 09:30 Morphine Sulfate (morphine) 2 mg Q2H PRN IV PAIN Last administered on 12/20/16 03:22; Admin Dose 2 MG; Start 12/09/16 at 09:30 Acetaminophen 650 mg 650 mg Q6H PRN [place] ELEVATED TEMPERATURE Last administered on 12/09/16 17:53; Admin Dose 650 MG; Start 12/09/16 at 17:00 Piperacillin Sod/ Tazobactam Sod (Zosyn 2.25gm/ 50ml (Pmx)) 50 ml @ 100 mls/hr Q12 IVPB Last administered on 12/27/16 08:58; Admin Dose 100 MLS/HR; Start at 21:00 Metoprolol Tartrate (Lopressor) 5 mg Q4H PRN IV HR>100 Last administered on 22:23; Admin Dose 5 MG; Start 12/09/16 at 17:48 Hydralazine HCl (Apresoline) 10 mg Q6H PRN IV SBP>150mm hg Last administered on 12/19/16 08:50; Admin Dose 10 MG; Start 12/11/16 at 10:30 Morphine Sulfate 2 mg 2 mg Q2H PRN IV PAIN LEVEL 4-7; Start 12/13/16 at 10:00 Caspofungin/ Sodium Chloride (Cancidas/NS) 250 ml @ 250 mls/hr Q24H IVPB Last administered on 12/27/16 11:07; Admin Dose 250 MLS/HR; Start 12/15/16 at 11:00 Metoprolol Tartrate (Lopressor) 12.5 mg BID PO Last administered on 12/26/16 20:38; Admin Dose 12.5 MG; Start 12/16/16 at 21:00 Pantoprazole (Protonix Tab) 40 mg DAILY@06 PO Last administered on 12/26/16 06 :01; Admin Dose 40 MG; Start 12/23/16 at 06:00 Aspirin (Ecotrin) 325 mg DAILY PO Last administered on 12/26/16 09:07; Admin Dose 325 MG; Start 12/24/16 at 09:00 Insulin Glargine (Lantus) 22 unit DAILY@20 SC Last administered on 12/26/16 19 :57; Admin Dose 22 UNIT; Start 12/25/16 at 20:00 Diagnostic Test (Pha) (Accu-Chek) 1 ea 02 XX Last administered on 12/27/16 02: 42; Admin Dose 1 EA; Start 12/25/16 at 02:00 VICENTE LESLIE December 27, 2016 19:00
[2016-12-27] MEDS: INSULIN GLARGINE [LANtus] 3 ML PEN SC SCH (19:58)
[2016-12-27] MEDS: HEPARIN 5,000 UNIT/0.5 ML VIAL SC SCH (20:30)
[2016-12-28] VITALS (25 sets, daily range): BP systolic 119–150; BP diastolic 59–76; PULSE 61–88; RESP 18–25
[2016-12-28] MEDS: ACCU-CHEK XX SCH (01:32)
[2016-12-28] MEDS: PANTOPRAZOLE (EC) 40 MG TAB PO SCH (05:57)
[2016-12-28 06:40] LABS: ADD SCAN DIFF NO
[2016-12-28 06:44] LABS: BASOPHILS % 0.5 % (0.0-2.0); EOSINOPHILS # 0.1 10^3/ul (0.0-0.5); EOSINOPHILS % 1.2 % (0.0-7.0); HEMATOCRIT 26.5 % (42.0-52.0); HEMOGLOBIN 8.6 g/dl (14.0-18.0); LYMPHOCYTES # 0.7 10^3/ul (0.8-2.9); LYMPHOCYTES % 8.1 % (15.0-51.0); MEAN CORPUSCULAR HEMOGLOBIN 31.9 pg (29.0-33.0); MEAN CORPUSCULAR HGB CONC 32.5 g/dl (32.0-37.0); MEAN CORPUSCULAR VOLUME 98.1 fl (82.0-101.0); MEAN PLATELET VOLUME 9.8 fl (7.4-10.4); MONOCYTE # 1.1 10^3/ul (0.3-0.9); MONOCYTES % 13.3 % (0.0-11.0); NEUTROPHIL # 6.3 10^3/ul (1.6-7.5); NEUTROPHILS % 76.2 % (39.0-77.0); PLATELET COUNT 142 10^3/UL (140-415); RED CELL DISTRIBUTION WIDTH 13.9 % (11.5-14.5); WHITE BLOOD COUNT 8.3 10^3/ul (4.8-10.8)
[2016-12-28 07:14] LABS: CALCIUM 8.1 mg/dl (8.4-10.2); CREATININE 7.47 mg/dl (0.61-1.24); POTASSIUM 3.9 mmol/L (3.5-5.1)
[2016-12-28] MEDS: ALBUTEROL/IPRATROPIUM (NEB) 3 ML AMP HHN SCH ×3 (08:00→19:06)
[2016-12-28] MEDS: INSULIN ASPART [NOVOLOG] 3 ML PEN SC SCH ×3 (08:25→17:19)
[2016-12-28] MEDS: ASPIRIN (EC) 325 MG TAB PO SCH (10:06)
[2016-12-28] MEDS: METOPROLOL 25 MG TAB PO SCH ×2 (10:06→20:16)
[2016-12-28] MEDS: PIPER-TAZO 2.25 GM (PMX) 50 ML IVPB SCH ×2 (10:06→20:33)
[2016-12-28] MEDS: COLLAGENASE 30 GM TUBE TOP SCH (10:07)
--- NOTE | 2016-12-28 10:08 | CONS ---
Date/Time of Note Date/Time of Note DATE: 12/28/16 TIME: 10:05 Assessment/Plan Assessment/Plan Additional Assessment/Plan 1. Atrial fibrillation-currently in SR/ST with PAC's - rate controlled now 2. Hypotension-resolved off of pat - better now 3. Abnormal electrocardiogram with inferolateral T-wave inversions- no cp noted 4. Respiratory failure- pulm follows 5. Nonhealing toe ulceration-vascular following 6. Peripheral arterial disease by arterial ultrasound of the lower extremities this admission. 7. Diabetes mellitus- on meds, keep euglycemic 8. Fevers - on anti-bx. 9. Positive troponin-downtrended 10.Bradycardia-improved/stable 11.-sever by echo 12.Cardiomyopathy-EF 40-45% by echo/36% by stress with no ischemia but positive scar Consultation Date/Type/Reason Admit Date/Time Dec 02, 2016 at 21:01 Initial Consult Date 12/03/16 Type of Consultation: Cardiology Referring Provider: VIET PARKER MD 24 HR Interval Summary Free Text/Dictation No acute change - BP in good range - doubt ischemia ROS: No fever, no chills, no nausea, no vomiting, no diarrhea/constipation No recent weight changes No chest pain, no PND, no orthopnea No dizziness, blurred vision No thirst, no heat or cold intolerance Exam/Review of Systems Vital Signs Vitals Vital Signs Date Time Temp Pulse Resp B/P Pulse Ox O2 Delivery O2 Flow Rate FiO2 12/28/16 09:00 68 12/28/16 08:59 99 30 12/28/16 07:47 97.8 25 138/68 12/27/16 17:40 2.0 12/26/16 19:12 Nasal Cannula Intake and Output 12/27/16 12/27/16 12/28/16 15:00 23:00 07:00 Intake Total 300 ml 240 ml Output Total 200 ml Balance 300 ml 40 ml Exam General: WN/WD/NAD, AO x 2-3 HEENT: Unicetric/atraumatic/EOMI (follows commands) NECK: JVD elevated, no thyromegaly Lymph: no lymphadenopathy HEART: regular with no S3, II/ systolic murmur at apex, base m 2/6 LUNGS: Coarse sounds ABD: soft, NT, ND, +BS : Intact Neuro: non focal SKIN: chronic changes EXT: trace edema, wounds Results Result Diagram: 12/28/16 0549 12/28/16 0549 Results 24 hrs Laboratory Tests Test 12/27/16 11:10 12/27/16 16:58 12/27/16 16:59 12/27/16 19:55 Bedside Glucose 134 187 158 177 Test 12/28/16 05:49 12/28/16 07:44 White Blood Count 8.3 Red Blood Count 2.70 L Hemoglobin 8.6 L Hematocrit 26.5 L Mean Corpuscular Volume 98.1 Mean Corpuscular Hemoglobin 31.9 Mean Corpuscular Hemoglobin Concent 32.5 Red Cell Distribution Width 13.9 Platelet Count 142 Mean Platelet Volume 9.8 Neutrophils % 76.2 Lymphocytes % 8.1 L Monocytes % 13.3 H Eosinophils % 1.2 Basophils % 0.5 Nucleated Red Blood Cells % 0.0 Neutrophils # 6.3 Lymphocytes # 0.7 L Monocytes # 1.1 H Eosinophils # 0.1 Basophils # 0.0 Nucleated Red Blood Cells # 0.0 Sodium Level 137 Potassium Level 3.9 Chloride Level 103 Carbon Dioxide Level 25 Anion Gap 13 Blood Urea Nitrogen 51 H Creatinine 7.47 H Glucose Level 83 Calcium Level 8.1 L Bedside Glucose 89 Medications Medications Current Medications Ondansetron HCl (Zofran Inj) 4 mg Q6H PRN IV NAUSEA AND/OR VOMITING Last administered on 12/13/16 01:13; Admin Dose 4 MG; Start 12/02/16 at 22:30 Miscellaneous Information 1 ea NOTE XX ; Start 12/02/16 at 23:00 Glucose (Glutose) 15 gm Q15M PRN PO DECREASED GLUCOSE; Start 12/02/16 at 23:00 Glucose (Glutose) 22.5 gm Q15M PRN PO DECREASED GLUCOSE; Start 12/02/16 at 23: 00 Dextrose (D50w Syringe) 25 ml Q15M PRN IV DECREASED GLUCOSE Last administered on 12/10/16 05:52; Admin Dose 25 ML; Start 12/02/16 at 23:00 Dextrose (D50w Syringe) 50 ml Q15M PRN IV DECREASED GLUCOSE; Start 12/02/16 at 23:00 Glucagon (Glucagen) 1 mg Q15M PRN IM DECREASED GLUCOSE; Start 12/02/16 at 23:00 Glucose (Glutose) 15 gm Q15M PRN BUCCAL DECREASED GLUCOSE; Start 12/02/16 at 23 :00 Gabapentin (Neurontin) 800 mg TID PO Last administered on 12/08/16 20:33; Admin Dose 800 MG; Start 12/03/16 at 09:00; Status Future Hold Meclizine HCl (Antivert) 25 mg TID PRN PO dizziness Last administered on 09:37; Admin Dose 25 MG; Start 12/02/16 at 23:00 Terazosin HCl (Hytrin) 5 mg HS PO Last administered on 12/07/16 20:28; Admin Dose 5 MG; Start 12/03/16 at 21:00; Status Future Hold Acetaminophen/ Hydrocodone Bitart ([place] (5/325)) 1 tab Q6H PRN PO PAIN LEVEL 4 -7 Last administered on 12/23/16 22:14; Admin Dose 1 TAB; Start 12/02/16 at 23: 30 Acetaminophen (Tylenol Tab) 650 mg Q6H PRN PO PAIN AND OR ELEVATED TEMP Last administered on 12/18/16 10:44; Admin Dose 650 MG; Start 12/02/16 at 23:30 Docusate Sodium (Colace) 100 mg BID PO Last administered on 12/08/16 20:32; Admin Dose 100 MG; Start 12/03/16 at 09:00; Status Future Hold Zolpidem Tartrate (Ambien) 5 mg HS PRN PO INSOMNIA Last administered on 00:45; Admin Dose 5 MG; Start 12/02/16 at 23:30 Benazepril HCl (Lotensin) 10 mg DAILY PO Last administered on 12/07/16 08:26; Admin Dose 10 MG; Start 12/04/16 at 09:00; Status Future Hold Collagenase (Santyl) 1 applic DAILY TOP Last administered on 12/27/16 08:59; Admin Dose 1 APPLIC; Start 12/07/16 at 16:00 Lorazepam (Ativan) 2 mg Q2 PRN IV AGITATION/ANXIETY Last administered on 21:54; Admin Dose 2 MG; Start 12/09/16 at 09:30 Morphine Sulfate (morphine) 2 mg Q2H PRN IV PAIN Last administered on 12/20/16 03:22; Admin Dose 2 MG; Start 12/09/16 at 09:30 Acetaminophen 650 mg 650 mg Q6H PRN [place] ELEVATED TEMPERATURE Last administered on 12/09/16 17:53; Admin Dose 650 MG; Start 12/09/16 at 17:00 Piperacillin Sod/ Tazobactam Sod (Zosyn 2.25gm/ 50ml (Pmx)) 50 ml @ 100 mls/hr Q12 IVPB Last administered on 12/27/16 20:21; Admin Dose 100 MLS/HR; Start at 21:00 Metoprolol Tartrate (Lopressor) 5 mg Q4H PRN IV HR>100 Last administered on 22:23; Admin Dose 5 MG; Start 12/09/16 at 17:48 Hydralazine HCl (Apresoline) 10 mg Q6H PRN IV SBP>150mm hg Last administered on 12/19/16 08:50; Admin Dose 10 MG; Start 12/11/16 at 10:30 Morphine Sulfate 2 mg 2 mg Q2H PRN IV PAIN LEVEL 4-7; Start 12/13/16 at 10:00 Caspofungin/ Sodium Chloride (Cancidas/NS) 250 ml @ 250 mls/hr Q24H IVPB Last administered on 12/27/16 11:07; Admin Dose 250 MLS/HR; Start 12/15/16 at 11:00 Metoprolol Tartrate (Lopressor) 12.5 mg BID PO Last administered on 12/27/16 20:21; Admin Dose 12.5 MG; Start 12/16/16 at 21:00 Pantoprazole (Protonix Tab) 40 mg DAILY@06 PO Last administered on 12/28/16 05 :57; Admin Dose 40 MG; Start 12/23/16 at 06:00 Aspirin (Ecotrin) 325 mg DAILY PO Last administered on 12/26/16 09:07; Admin Dose 325 MG; Start 12/24/16 at 09:00 Insulin Glargine (Lantus) 22 unit DAILY@20 SC Last administered on 12/27/16 19 :58; Admin Dose 22 UNIT; Start 12/25/16 at 20:00 Diagnostic Test (Pha) (Accu-Chek) 1 ea 02 XX Last administered on 12/27/16 02: 42; Admin Dose 1 EA; Start 12/25/16 at 02:00 Heparin Sodium (Porcine) (Heparin (5000 Units/0.5 ml)) 5,000 unit BID SC Last administered on 12/27/16 20:30; Admin Dose 5,000 UNIT; Start 12/27/16 at 21:00 DAVE NICOLE MD December 28, 2016 10:08
[2016-12-28] MEDS: HEPARIN 5,000 UNIT/0.5 ML VIAL SC SCH ×2 (10:12→20:20)
--- NOTE | 2016-12-28 10:34 | PN ---
DATE: 12/28/2016 SUBJECTIVE: Patient is undergoing hemodialysis right now and he is tired. The patient has had zandra s hematuria because of traumatic pulling of his catheter. OBJECTIVE: VITAL SIGNS: Temperature is 97.8, pulse 68, respirations 25, blood pressure 138/68. ABDOMEN: Soft. According to the nurse taking care of him, the urine has cleared and there is no he maturia. LABORATORY DATA: CBC shows a white count of 8.3, hemoglobin 8.6, hematocrit 26.5. BUN is 51, creat inine 7.47. Electrolytes are normal. The hemodialysis is coming on right now and the plan is to ta ke about 2.5 liters out. ASSESSMENT: From a urological standpoint, the hematuria that was traumatic has cleared and he may s till bleed on and off. That is a possibility, but we will do nothing about it. We will just watch it and it should clear by itself. Dictated By: JOE KUMAR/MICHELLE Conf#: [id number] DID#: [id number]
[2016-12-28] MEDS: CASPOFUNGIN 50 MG in SOD CHLORIDE 0.9% 250 ML IVPB SCH (11:09)
--- NOTE | 2016-12-28 12:39 | CONS ---
Date/Time of Note Date/Time of Note DATE: 12/28/16 TIME: 12:36 Assessment/Plan Assessment/Plan Additional Assessment/Plan 1. Oliguric to Anuric Acute kidney injury 2/2 ATN- started on HD on 12/09/16 for acute fluid overload and Pulmonary edema 2. acute resp failure intubated on ventilator -now extubated on 12/10/2016- then again reintubated on 12/13/2016- now self extubated on 12/18/16 3. Moderate to large right pleural effusion s/p Right thoracentesis 900 cc drained on 12/16/16 2. Left foot diabetic ulcer/cellulitis currently on IV antibiotics, Zosyn and vancomycin. 3. History of diabetes mellitus, insulin-dependent with lower extremity neuropathy. 4. History of hypertension. 5. History of aortic stenosis with diastolic dysfunction with ejection fraction 60% on echocardiogram. PLAN: s/p right thoracentesis 900 cc drained on 12/16/16, Us showed small left pleural effusion S/p lexiscan showed non reversible perfusion defect with EF39% s/p Permacath placement, Had a HD yesterday through permacath- 2.5 L removed, Bp stable ordered CXR for HD placement after permacath placement- awaiting HD placment, request in process will continue to follow up Consultation Date/Type/Reason Admit Date/Time Dec 02, 2016 at 21:01 Initial Consult Date Type of Consultation: NEPHROLOGY Reason for Consultation acute on chronic renal failure with fluid overload, started on HD during admission Referring Provider: VIET PARKER MD 24 HR Interval Summary Free Text/Dictation s/p HD today 2.5 L removed, BP stable, HD placement in progress Exam/Review of Systems Vital Signs Vitals Vital Signs Date Time Temp Pulse Resp B/P Pulse Ox O2 Delivery O2 Flow Rate FiO2 12/28/16 12:09 81 12/28/16 11:42 98.2 18 123/59 99 12/28/16 08:59 30 12/27/16 17:40 2.0 12/26/16 19:12 Nasal Cannula Intake and Output 12/27/16 12/27/16 12/28/16 15:00 23:00 07:00 Intake Total 300 ml 240 ml Output Total 200 ml Balance 300 ml 40 ml Results Result Diagram: 12/28/16 0549 12/28/16 0549 Results 24 hrs Laboratory Tests Test 12/27/16 16:58 12/27/16 16:59 12/27/16 19:55 12/28/16 05:49 Bedside Glucose 187 158 177 White Blood Count 8.3 Red Blood Count 2.70 L Hemoglobin 8.6 L Hematocrit 26.5 L Mean Corpuscular Volume 98.1 Mean Corpuscular Hemoglobin 31.9 Mean Corpuscular Hemoglobin Concent 32.5 Red Cell Distribution Width 13.9 Platelet Count 142 Mean Platelet Volume 9.8 Neutrophils % 76.2 Lymphocytes % 8.1 L Monocytes % 13.3 H Eosinophils % 1.2 Basophils % 0.5 Nucleated Red Blood Cells % 0.0 Neutrophils # 6.3 Lymphocytes # 0.7 L Monocytes # 1.1 H Eosinophils # 0.1 Basophils # 0.0 Nucleated Red Blood Cells # 0.0 Sodium Level 137 Potassium Level 3.9 Chloride Level 103 Carbon Dioxide Level 25 Anion Gap 13 Blood Urea Nitrogen 51 H Creatinine 7.47 H Glucose Level 83 Calcium Level 8.1 L Test 12/28/16 07:44 12/28/16 11:14 Bedside Glucose 89 137 Medications Medications Current Medications Ondansetron HCl (Zofran Inj) 4 mg Q6H PRN IV NAUSEA AND/OR VOMITING Last administered on 12/13/16 01:13; Admin Dose 4 MG; Start 12/02/16 at 22:30 Miscellaneous Information 1 ea NOTE XX ; Start 12/02/16 at 23:00 Glucose (Glutose) 15 gm Q15M PRN PO DECREASED GLUCOSE; Start 12/02/16 at 23:00 Glucose (Glutose) 22.5 gm Q15M PRN PO DECREASED GLUCOSE; Start 12/02/16 at 23: 00 Dextrose (D50w Syringe) 25 ml Q15M PRN IV DECREASED GLUCOSE Last administered on 12/10/16 05:52; Admin Dose 25 ML; Start 12/02/16 at 23:00 Dextrose (D50w Syringe) 50 ml Q15M PRN IV DECREASED GLUCOSE; Start 12/02/16 at 23:00 Glucagon (Glucagen) 1 mg Q15M PRN IM DECREASED GLUCOSE; Start 12/02/16 at 23:00 Glucose (Glutose) 15 gm Q15M PRN BUCCAL DECREASED GLUCOSE; Start 12/02/16 at 23 :00 Gabapentin (Neurontin) 800 mg TID PO Last administered on 12/08/16 20:33; Admin Dose 800 MG; Start 12/03/16 at 09:00; Status Future Hold Meclizine HCl (Antivert) 25 mg TID PRN PO dizziness Last administered on 09:37; Admin Dose 25 MG; Start 12/02/16 at 23:00 Terazosin HCl (Hytrin) 5 mg HS PO Last administered on 12/07/16 20:28; Admin Dose 5 MG; Start 12/03/16 at 21:00; Status Future Hold Acetaminophen/ Hydrocodone Bitart ([place] (5/325)) 1 tab Q6H PRN PO PAIN LEVEL 4 -7 Last administered on 12/23/16 22:14; Admin Dose 1 TAB; Start 12/02/16 at 23: 30 Acetaminophen (Tylenol Tab) 650 mg Q6H PRN PO PAIN AND [place] ELEVATED TEMP Last administered on 12/18/16 10:44; Admin Dose 650 MG; Start 12/02/16 at 23:30 Docusate Sodium (Colace) 100 mg BID PO Last administered on 12/08/16 20:32; Admin Dose 100 MG; Start 12/03/16 at 09:00; Status Future Hold Zolpidem Tartrate (Ambien) 5 mg HS PRN PO INSOMNIA Last administered on 00:45; Admin Dose 5 MG; Start 12/02/16 at 23:30 Benazepril HCl (Lotensin) 10 mg DAILY PO Last administered on 12/07/16 08:26; Admin Dose 10 MG; Start 12/04/16 at 09:00; Status Future Hold Collagenase (Santyl) 1 applic DAILY TOP Last administered on 12/28/16 10:07; Admin Dose 1 APPLIC; Start 12/07/16 at 16:00 Lorazepam (Ativan) 2 mg Q2 PRN IV AGITATION/ANXIETY Last administered on 21:54; Admin Dose 2 MG; Start 12/09/16 at 09:30 Morphine Sulfate (morphine) 2 mg Q2H PRN IV PAIN Last administered on 12/20/16 03:22; Admin Dose 2 MG; Start 12/09/16 at 09:30 Acetaminophen 650 mg 650 mg Q6H PRN [place] ELEVATED TEMPERATURE Last administered on 12/09/16 17:53; Admin Dose 650 MG; Start 12/09/16 at 17:00 Piperacillin Sod/ Tazobactam Sod (Zosyn 2.25gm/ 50ml (Pmx)) 50 ml @ 100 mls/hr Q12 IVPB Last administered on 12/28/16 10:06; Admin Dose 100 MLS/HR; Start at 21:00 Metoprolol Tartrate (Lopressor) 5 mg Q4H PRN IV HR>100 Last administered on 22:23; Admin Dose 5 MG; Start 12/09/16 at 17:48 Hydralazine HCl (Apresoline) 10 mg Q6H PRN IV SBP>150mm hg Last administered on 12/19/16 08:50; Admin Dose 10 MG; Start 12/11/16 at 10:30 Morphine Sulfate 2 mg 2 mg Q2H PRN IV PAIN LEVEL 4-7; Start 12/13/16 at 10:00 Caspofungin/ Sodium Chloride (Cancidas/NS) 250 ml @ 250 mls/hr Q24H IVPB Last administered on 12/28/16 11:09; Admin Dose 250 MLS/HR; Start 12/15/16 at 11:00 Metoprolol Tartrate (Lopressor) 12.5 mg BID PO Last administered on 12/28/16 10:06; Admin Dose 12.5 MG; Start 12/16/16 at 21:00 Pantoprazole (Protonix Tab) 40 mg DAILY@06 PO Last administered on 12/28/16 05 :57; Admin Dose 40 MG; Start 12/23/16 at 06:00 Aspirin (Ecotrin) 325 mg DAILY PO Last administered on 12/28/16 10:06; Admin Dose 325 MG; Start 12/24/16 at 09:00 Insulin Glargine (Lantus) 22 unit DAILY@20 SC Last administered on 12/27/16 19 :58; Admin Dose 22 UNIT; Start 12/25/16 at 20:00 Diagnostic Test (Pha) (Accu-Chek) 1 ea 02 XX Last administered on 12/27/16 02: 42; Admin Dose 1 EA; Start 12/25/16 at 02:00 Heparin Sodium (Porcine) (Heparin (5000 Units/0.5 ml)) 5,000 unit BID SC Last administered on 12/28/16t 10:12; Admin Dose 5,000 UNIT; Start 12/27/16 at 21:00 TASHIA MCGARRY MD December 28, 2016 12:39
--- NOTE | 2016-12-28 12:51 | PN ---
Date/Time of Note Date/Time of Note DATE: 12/28/16 TIME: 12:50 Assessment/Plan VTE Prophylaxis VTE Prophylaxis Intervention: SCD's Lines/Catheters IV [facility] [place] Urinary Cath still in place: No Assessment/Plan Chief Complaint/Hosp Course Assessment/Plan - Acute respiratory failure secondary to pulmonary edema, resolved. Dr. Alvarez is following from pulmonology standpoint. - Bilateral pleural effusion, this post right sided thoracentesis with removal of 900 cc of fluid. - Acute renal failure, Dr. Remy is following in nephrology consultation. Continue hemodialysis per nephrology. Pending permacath placement by vascular surgery. - Acute to subacute right occipital lobe ischemic infarct per CT, Dr Morris is following in neurology consultation. - Paroxysmal atrial fibrillation and positive troponin. Dr. Cobian is following and cardiology consultation. Status post Lexiscan on 12/24. - Fungemia, om Caspofungin. Dr. Pascual is following in infection disease consultation. - Diabetic foot ulcer of the left foot, Dr Lin is following in podiatry consultation. - Cellulitis of left foot, 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 and left fourth proximal phalanx per bone scan. Continue antibiotics per ID. - Aortic stenosis - Diastolic dysfunction congestive heart failure with preserved ejection fraction of 60%. - DM, Hgb A1c is 8.7, continue Lantus and pre-meal NovoLog and NovoLog per sliding scale. -Traumatic hematuria, resolved. Dr. Grey urology consult is appreciated. Further recommendations based on clinical course. Plan of care discussed with Dr. Heredia. Problems: Subjective 24 Hr Interval Summary Free Text/Dictation Patient is status post hemodialysis today, awake alert, complains of some shortness of breath on exertion, comfortable at rest. Exam/Review of Systems Vital Signs Vitals Vital Signs Date Time Temp Pulse Resp B/P Pulse Ox O2 Delivery O2 Flow Rate FiO2 12/28/16 12:09 81 12/28/16 11:42 98.2 18 123/59 99 12/28/16 08:59 30 12/27/16 17:40 2.0 12/26/16 19:12 Nasal Cannula Intake and Output 12/27/16 12/27/16 12/28/16 15:00 23:00 07:00 Intake Total 300 ml 240 ml Output Total 200 ml Balance 300 ml 40 ml Exam Constitutional: awake, alert Psych: no complaints Head: atraumatic, normocephalic Eyes: nl conjunctiva ENMT: nl external ears & nose Neck: non-tender, supple Respiratory: clear to auscultation, normal air movement Cardiovascular: nl pulses, regular rate and rhythm, systolic murmur Gastrointestinal: non-tender, soft Musculoskeletal: nl extremities to inspection Extremities: normal pulses Neurological: alert *3 Skin: nl turgor, left big toe ulcer. R IJ HD cath Results Result Diagram: 12/28/16 0549 12/28/16 0549 Results 24 hrs Laboratory Tests Test 12/27/16 16:58 12/27/16 16:59 12/27/16 19:55 12/28/16 05:49 Bedside Glucose 187 158 177 White Blood Count 8.3 Red Blood Count 2.70 L Hemoglobin 8.6 L Hematocrit 26.5 L Mean Corpuscular Volume 98.1 Mean Corpuscular Hemoglobin 31.9 Mean Corpuscular Hemoglobin Concent 32.5 Red Cell Distribution Width 13.9 Platelet Count 142 Mean Platelet Volume 9.8 Neutrophils % 76.2 Lymphocytes % 8.1 L Monocytes % 13.3 H Eosinophils % 1.2 Basophils % 0.5 Nucleated Red Blood Cells % 0.0 Neutrophils # 6.3 Lymphocytes # 0.7 L Monocytes # 1.1 H Eosinophils # 0.1 Basophils # 0.0 Nucleated Red Blood Cells # 0.0 Sodium Level 137 Potassium Level 3.9 Chloride Level 103 Carbon Dioxide Level 25 Anion Gap 13 Blood Urea Nitrogen 51 H Creatinine 7.47 H Glucose Level 83 Calcium Level 8.1 L Test 12/28/16 07:44 12/28/16 11:14 Bedside Glucose 89 137 Medications Medications Current Medications Ondansetron HCl (Zofran Inj) 4 mg Q6H PRN IV NAUSEA AND/OR VOMITING Last administered on 12/13/16 01:13; Admin Dose 4 MG; Start 12/02/16 at 22:30 Miscellaneous Information 1 ea NOTE XX ; Start 12/02/16 at 23:00 Glucose (Glutose) 15 gm Q15M PRN PO DECREASED GLUCOSE; Start 12/02/16 at 23:00 Glucose (Glutose) 22.5 gm Q15M PRN PO DECREASED GLUCOSE; Start 12/02/16 at 23: 00 Dextrose (D50w Syringe) 25 ml Q15M PRN IV DECREASED GLUCOSE Last administered on 12/10/16 05:52; Admin Dose 25 ML; Start 12/02/16 at 23:00 Dextrose (D50w Syringe) 50 ml Q15M PRN IV DECREASED GLUCOSE; Start 12/02/16 at 23:00 Glucagon (Glucagen) 1 mg Q15M PRN IM DECREASED GLUCOSE; Start 12/02/16 at 23:00 Glucose (Glutose) 15 gm Q15M PRN BUCCAL DECREASED GLUCOSE; Start 12/02/16 at 23 :00 Gabapentin (Neurontin) 800 mg TID PO Last administered on 12/08/16 20:33; Admin Dose 800 MG; Start 12/03/16 at 09:00; Status Future Hold Meclizine HCl (Antivert) 25 mg TID PRN PO dizziness Last administered on 09:37; Admin Dose 25 MG; Start 12/02/16 at 23:00 Terazosin HCl (Hytrin) 5 mg HS PO Last administered on 12/07/16 20:28; Admin Dose 5 MG; Start 12/03/16 at 21:00; Status Future Hold Acetaminophen/ Hydrocodone Bitart ([place] (5/325)) 1 tab Q6H PRN PO PAIN LEVEL 4 -7 Last administered on 12/23/16 22:14; Admin Dose 1 TAB; Start 12/02/16 at 23: 30 Acetaminophen (Tylenol Tab) 650 mg Q6H PRN PO PAIN AND OR ELEVATED TEMP Last administered on 12/18/16 10:44; Admin Dose 650 MG; Start 12/02/16 at 23:30 Docusate Sodium (Colace) 100 mg BID PO Last administered on 12/08/16 20:32; Admin Dose 100 MG; Start 12/03/16 at 09:00; Status Future Hold Zolpidem Tartrate (Ambien) 5 mg HS PRN PO INSOMNIA Last administered on 00:45; Admin Dose 5 MG; Start 12/02/16 at 23:30 Benazepril HCl (Lotensin) 10 mg DAILY PO Last administered on 12/07/16 08:26; Admin Dose 10 MG; Start 12/04/16 at 09:00; Status Future Hold Collagenase (Santyl) 1 applic DAILY TOP Last administered on 12/28/16 10:07; Admin Dose 1 APPLIC; Start 12/07/16 at 16:00 Lorazepam (Ativan) 2 mg Q2 PRN IV AGITATION/ANXIETY Last administered on 21:54; Admin Dose 2 MG; Start 12/09/16 at 09:30 Morphine Sulfate (morphine) 2 mg Q2H PRN IV PAIN Last administered on 12/20/16 03:22; Admin Dose 2 MG; Start 12/09/16 at 09:30 Acetaminophen 650 mg 650 mg Q6H PRN [place] ELEVATED TEMPERATURE Last administered on 12/09/16 17:53; Admin Dose 650 MG; Start 12/09/16 at 17:00 Piperacillin Sod/ Tazobactam Sod (Zosyn 2.25gm/ 50ml (Pmx)) 50 ml @ 100 mls/hr Q12 IVPB Last administered on 12/28/16 10:06; Admin Dose 100 MLS/HR; Start at 21:00 Metoprolol Tartrate (Lopressor) 5 mg Q4H PRN IV HR>100 Last administered on 22:23; Admin Dose 5 MG; Start 12/09/16 at 17:48 Hydralazine HCl (Apresoline) 10 mg Q6H PRN IV SBP>150mm hg Last administered on 12/19/16 08:50; Admin Dose 10 MG; Start 12/11/16 at 10:30 Morphine Sulfate 2 mg 2 mg Q2H PRN IV PAIN LEVEL 4-7; Start 12/13/16 at 10:00 Caspofungin/ Sodium Chloride (Cancidas/NS) 250 ml @ 250 mls/hr Q24H IVPB Last administered on 12/28/16 11:09; Admin Dose 250 MLS/HR; Start 12/15/16 at 11:00 Metoprolol Tartrate (Lopressor) 12.5 mg BID PO Last administered on 12/28/16 10:06; Admin Dose 12.5 MG; Start 12/16/16 at 21:00 Pantoprazole (Protonix Tab) 40 mg DAILY@06 PO Last administered on 12/28/16 05 :57; Admin Dose 40 MG; Start 12/23/16 at 06:00 Aspirin (Ecotrin) 325 mg DAILY PO Last administered on 12/28/16 10:06; Admin Dose 325 MG; Start 12/24/16 at 09:00 Insulin Glargine (Lantus) 22 unit DAILY@20 SC Last administered on 12/27/16 19 :58; Admin Dose 22 UNIT; Start 12/25/16 at 20:00 Diagnostic Test (Pha) (Accu-Chek) 1 ea 02 XX Last administered on 12/27/16 02: 42; Admin Dose 1 EA; Start 12/25/16 at 02:00 Heparin Sodium (Porcine) (Heparin (5000 Units/0.5 ml)) 5,000 unit BID SC Last administered on 12/28/16 10:12; Admin Dose 5,000 UNIT; Start 12/27/16 at 21:00 KIMBERLY NOYOLA December 28, 2016 12:51
--- NOTE | 2016-12-28 13:56 | RADRPT ---
PROCEDURE: XR Chest. CLINICAL INDICATION: Tuberculosis screening TECHNIQUE: An AP view of the chest was obtained. COMPARISON: Chest x-ray dated 12/27/2016 FINDINGS: There is a right chest Perma-Cath with tip near the cavoatrial junction. There is prominence of the interstitial and central pulmonary vascular markings with small bilatera l pleural effusions. No focal airspace opacification or pneumothorax is seen. The cardiomediastin al silhouette is within normal limits for size. Calcifications are seen within the aortic arch. The osseous structures demonstrate senescent changes. IMPRESSION: 1. Findings suggestive of pulmonary vascular congestion with small bilateral pleural effusions. Th ere is mild improved aeration of the lungs when compared to the prior examination. 2. Aortic atherosclerosis. 3. Right chest Perma-Cath with tip near the cavoatrial junction. RPTAT: HH .Hailey Curry MD, Date Time Electronically viewed and signed by .Hailey Curry MD, on 12/28/2016 13:56 .G/
--- NOTE | 2016-12-28 15:59 | CONS ---
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 Blood cultures from HD catheter on 12/13/2016 are negative to date. 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 superficial swab grew inna only - right pleural effusion s/p thoracentesis with .9L removed on 12/16/2016; (Note: there is no pleural fluid cx since orders were placed after Right thoracentesis , and Left thoracentesis was not performed on 12/17/16 d/t insufficient fluid) - funguria - ARANZA, on HD from 12/09/2016 - A fib; now in SR - troponin+ - small nonreversible perfusion abnormality in the inferoapical and inferior carver; EF 36% per Lexiscan 12/24/2016 - severe , EF 40-45% per TTE 12/17/16 - DM - Hgb A1c 8.7% - HTN associated with DM - Hypoxia requiring Bipap ?fluid overload recommendations: - continue caspofungin (12/14/2016-) for fungemia; check CMP tomorrow - continue renally dosed pip/tazo (12/03/2016) empirically for diabetic foot infection, and sepsis (s/p linezolid) - ultimately, Pt needs 6 weeks of antibiotics to treat 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 and left fourth proximal phalanx: 12/03/2016 through 01/15/2017 management d/w Pt, his and RN Problems: Consultation Date/Type/Reason Admit Date/Time Dec 02, 2016 at 21:01 Type of Consultation: id Referring Provider: VIET PARKER MD Exam/Review of Systems Vital Signs Vitals Vital Signs Date Time Temp Pulse Resp B/P Pulse Ox O2 Delivery O2 Flow Rate FiO2 12/28/16 15:49 98.3 73 18 130/61 96 12/28/16 13:51 30 12/28/16 13:04 Nasal Cannula 2.0 Intake and Output 12/27/16 12/27/16 12/28/16 15:00 23:00 07:00 Intake Total 300 ml 240 ml Output Total 200 ml Balance 300 ml 40 ml Results Result Diagram: 12/28/16 0549 12/28/16 0549 Results 24 hrs Laboratory Tests Test 12/27/16 16:58 12/27/16 16:59 12/27/16 19:55 12/28/16 05:49 Bedside Glucose 187 158 177 White Blood Count 8.3 Red Blood Count 2.70 L Hemoglobin 8.6 L Hematocrit 26.5 L Mean Corpuscular Volume 98.1 Mean Corpuscular Hemoglobin 31.9 Mean Corpuscular Hemoglobin Concent 32.5 Red Cell Distribution Width 13.9 Platelet Count 142 Mean Platelet Volume 9.8 Neutrophils % 76.2 Lymphocytes % 8.1 L Monocytes % 13.3 H Eosinophils % 1.2 Basophils % 0.5 Nucleated Red Blood Cells % 0.0 Neutrophils # 6.3 Lymphocytes # 0.7 L Monocytes # 1.1 H Eosinophils # 0.1 Basophils # 0.0 Nucleated Red Blood Cells # 0.0 Sodium Level 137 Potassium Level 3.9 Chloride Level 103 Carbon Dioxide Level 25 Anion Gap 13 Blood Urea Nitrogen 51 H Creatinine 7.47 H Glucose Level 83 Calcium Level 8.1 L Test 12/28/16 07:44 12/28/16 11:14 Bedside Glucose 89 137 Medications Medications Current Medications Ondansetron HCl (Zofran Inj) 4 mg Q6H PRN IV NAUSEA AND/OR VOMITING Last administered on 12/13/16 01:13; Admin Dose 4 MG; Start 12/02/16 at 22:30 Miscellaneous Information 1 ea NOTE XX ; Start 12/02/16 at 23:00 Glucose (Glutose) 15 gm Q15M PRN PO DECREASED GLUCOSE; Start 12/02/16 at 23:00 Glucose (Glutose) 22.5 gm Q15M PRN PO DECREASED GLUCOSE; Start 12/02/16 at 23: 00 Dextrose (D50w Syringe) 25 ml Q15M PRN IV DECREASED GLUCOSE Last administered on 12/10/16 05:52; Admin Dose 25 ML; Start 12/02/16 at 23:00 Dextrose (D50w Syringe) 50 ml Q15M PRN IV DECREASED GLUCOSE; Start 12/02/16 at 23:00 Glucagon (Glucagen) 1 mg Q15M PRN IM DECREASED GLUCOSE; Start 12/02/16 at 23:00 Glucose (Glutose) 15 gm Q15M PRN BUCCAL DECREASED GLUCOSE; Start 12/02/16 at 23 :00 Gabapentin (Neurontin) 800 mg TID PO Last administered on 12/08/16 20:33; Admin Dose 800 MG; Start 12/03/16 at 09:00; Status Future Hold Meclizine HCl (Antivert) 25 mg TID PRN PO dizziness Last administered on 09:37; Admin Dose 25 MG; Start 12/02/16 at 23:00 Terazosin HCl (Hytrin) 5 mg HS PO Last administered on 12/07/16 20:28; Admin Dose 5 MG; Start 12/03/16 at 21:00; Status Future Hold Acetaminophen/ Hydrocodone Bitart ([place] (5/325)) 1 tab Q6H PRN PO PAIN LEVEL 4 -7 Last administered on 12/23/16 22:14; Admin Dose 1 TAB; Start 12/02/16 at 23: 30 Acetaminophen (Tylenol Tab) 650 mg Q6H PRN PO PAIN AND OR ELEVATED TEMP Last administered on 12/18/16 10:44; Admin Dose 650 MG; Start 12/02/16 at 23:30 Docusate Sodium (Colace) 100 mg BID PO Last administered on 12/08/16 20:32; Admin Dose 100 MG; Start 12/03/16 at 09:00; Status Future Hold Zolpidem Tartrate (Ambien) 5 mg HS PRN PO INSOMNIA Last administered on 00:45; Admin Dose 5 MG; Start 12/02/16 at 23:30 Benazepril HCl (Lotensin) 10 mg DAILY PO Last administered on 12/07/16 08:26; Admin Dose 10 MG; Start 12/04/16 at 09:00; Status Future Hold Collagenase (Santyl) 1 applic DAILY TOP Last administered on 12/28/16 10:07; Admin Dose 1 APPLIC; Start 12/07/16 at 16:00 Lorazepam (Ativan) 2 mg Q2 PRN IV AGITATION/ANXIETY Last administered on 21:54; Admin Dose 2 MG; Start 12/09/16 at 09:30 Morphine Sulfate (morphine) 2 mg Q2H PRN IV PAIN Last administered on 12/20/16 03:22; Admin Dose 2 MG; Start 12/09/16 at 09:30 Acetaminophen 650 mg 650 mg Q6H PRN [place] ELEVATED TEMPERATURE Last administered on 12/09/16 17:53; Admin Dose 650 MG; Start 12/09/16 at 17:00 Piperacillin Sod/ Tazobactam Sod (Zosyn 2.25gm/ 50ml (Pmx)) 50 ml @ 100 mls/hr Q12 IVPB Last administered on 12/28/16 10:06; Admin Dose 100 MLS/HR; Start at 21:00 Metoprolol Tartrate (Lopressor) 5 mg Q4H PRN IV HR>100 Last administered on 22:23; Admin Dose 5 MG; Start 12/09/16 at 17:48 Hydralazine HCl (Apresoline) 10 mg Q6H PRN IV SBP>150mm hg Last administered on 12/19/16 08:50; Admin Dose 10 MG; Start 12/11/16 at 10:30 Morphine Sulfate 2 mg 2 mg Q2H PRN IV PAIN LEVEL 4-7; Start 12/13/16 at 10:00 Caspofungin/ Sodium Chloride (Cancidas/NS) 250 ml @ 250 mls/hr Q24H IVPB Last administered on 12/28/16 11:09; Admin Dose 250 MLS/HR; Start 12/15/16 at 11:00 Metoprolol Tartrate (Lopressor) 12.5 mg BID PO Last administered on 12/28/16 10:06; Admin Dose 12.5 MG; Start 12/16/16 at 21:00 Pantoprazole (Protonix Tab) 40 mg DAILY@06 PO Last administered on 12/28/16 05 :57; Admin Dose 40 MG; Start 12/23/16 at 06:00 Aspirin (Ecotrin) 325 mg DAILY PO Last administered on 12/28/16 10:06; Admin Dose 325 MG; Start 12/24/16 at 09:00 Insulin Glargine (Lantus) 22 unit DAILY@20 SC Last administered on 12/27/16 19 :58; Admin Dose 22 UNIT; Start 12/25/16 at 20:00 Diagnostic Test (Pha) (Accu-Chek) 1 ea 02 XX Last administered on 12/27/16 02: 42; Admin Dose 1 EA; Start 12/25/16 at 02:00 Heparin Sodium (Porcine) (Heparin (5000 Units/0.5 ml)) 5,000 unit BID SC Last administered on 12/28/16 10:12; Admin Dose 5,000 UNIT; Start 12/27/16 at 21:00 NIKHIL RAM MD December 28, 2016 15:59
--- NOTE | 2016-12-28 19:31 | CONS ---
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 Blood cultures from HD catheter on 12/13/2016 are negative to date. 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 superficial swab grew inna only - right pleural effusion s/p thoracentesis with .9L removed on 12/16/2016; (Note: there is no pleural fluid cx since orders were placed after Right thoracentesis , and Left thoracentesis was not performed on 12/17/16 d/t insufficient fluid) - funguria - ARANZA, on HD from 12/09/2016 - A fib; now in SR - troponin+ - small nonreversible perfusion abnormality in the inferoapical and inferior carver; EF 36% per Lexiscan 12/24/2016 - severe , EF 40-45% per TTE 12/17/16 - DM - Hgb A1c 8.7% - HTN associated with DM - Hypoxia requiring Bipap ?fluid overload 12/25/2016 recommendations: - continue caspofungin (12/14/2016-) for fungemia - continue renally dosed pip/tazo (12/03/2016) empirically for diabetic foot infection, and sepsis (s/p linezolid) - ultimately, Pt needs 6 weeks of antibiotics to treat 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 and left fourth proximal phalanx: 12/03/2016 through 01/15/2017 Management d/w Dr. Wilson Problems: Consultation Date/Type/Reason Admit Date/Time Dec 02, 2016 at 21:01 Initial Consult Date 12/03/16 Type of Consultation: Infectious Disease Referring Provider: VIET PARKER MD 24 HR Interval Summary Free Text/Dictation Reports intermittent SOB. ROS limited due to language barrier. Exam/Review of Systems Vital Signs Vitals Vital Signs Date Time Temp Pulse Resp B/P Pulse Ox O2 Delivery O2 Flow Rate FiO2 12/28/16 16:50 71 12/28/16 15:49 98.3 18 130/61 96 12/28/16 13:51 30 12/28/16 13:04 Nasal Cannula 2.0 Intake and Output 12/27/16 12/27/16 12/28/16 15:00 23:00 07:00 Intake Total 300 ml 240 ml Output Total 200 ml Balance 300 ml 40 ml Exam Constitutional: alert, oriented, well developed, using nasal cannula Psych: nl mood/affect Head: atraumatic, normocephalic Eyes: nl sclera Neck: supple, other (R IJ permacath with no e/o infection) Respiratory: diminished breath sounds No wheezing Cardiovascular: regular rate and rhythm, systolic murmur Gastrointestinal: bowel sounds (present), non-tender, soft, No distended Extremities: other (LUE hand HL with no e/o infection), No clubbing, No cyanosis Neurological: nl mental status, nl speech (Primarily [place]uneian speaking) Skin: nl turgor, other (See nurse note and photos in chart for details; stage 2 sacrococcyx ulcer; Left great toe diabetic dry ulcer) Results Result Diagram: 12/28/16 0549 12/28/16 0549 Results 24 hrs Laboratory Tests Test 12/27/16 19:55 12/28/16 05:49 12/28/16 07:44 12/28/16 11:14 Bedside Glucose 177 89 137 White Blood Count 8.3 Red Blood Count 2.70 L Hemoglobin 8.6 L Hematocrit 26.5 L Mean Corpuscular Volume 98.1 Mean Corpuscular Hemoglobin 31.9 Mean Corpuscular Hemoglobin Concent 32.5 Red Cell Distribution Width 13.9 Platelet Count 142 Mean Platelet Volume 9.8 Neutrophils % 76.2 Lymphocytes % 8.1 L Monocytes % 13.3 H Eosinophils % 1.2 Basophils % 0.5 Nucleated Red Blood Cells % 0.0 Neutrophils # 6.3 Lymphocytes # 0.7 L Monocytes # 1.1 H Eosinophils # 0.1 Basophils # 0.0 Nucleated Red Blood Cells # 0.0 Sodium Level 137 Potassium Level 3.9 Chloride Level 103 Carbon Dioxide Level 25 Anion Gap 13 Blood Urea Nitrogen 51 H Creatinine 7.47 H Glucose Level 83 Calcium Level 8.1 L Test 12/28/16 17:08 Bedside Glucose 204 Medications Medications Current Medications Ondansetron HCl (Zofran Inj) 4 mg Q6H PRN IV NAUSEA AND/OR VOMITING Last administered on 12/13/16 01:13; Admin Dose 4 MG; Start 12/02/16 at 22:30 Miscellaneous Information 1 ea NOTE XX ; Start 12/02/16 at 23:00 Glucose (Glutose) 15 gm Q15M PRN PO DECREASED GLUCOSE; Start 12/02/16 at 23:00 Glucose (Glutose) 22.5 gm Q15M PRN PO DECREASED GLUCOSE; Start 12/02/16 at 23: 00 Dextrose (D50w Syringe) 25 ml Q15M PRN IV DECREASED GLUCOSE Last administered on 12/10/16 05:52; Admin Dose 25 ML; Start 12/02/16 at 23:00 Dextrose (D50w Syringe) 50 ml Q15M PRN IV DECREASED GLUCOSE; Start 12/02/16 at 23:00 Glucagon (Glucagen) 1 mg Q15M PRN IM DECREASED GLUCOSE; Start 12/02/16 at 23:00 Glucose (Glutose) 15 gm Q15M PRN BUCCAL DECREASED GLUCOSE; Start 12/02/16 at 23 :00 Gabapentin (Neurontin) 800 mg TID PO Last administered on 12/08/16 20:33; Admin Dose 800 MG; Start 12/03/16 at 09:00; Status Future Hold Meclizine HCl (Antivert) 25 mg TID PRN PO dizziness Last administered on 09:37; Admin Dose 25 MG; Start 12/02/16 at 23:00 Terazosin HCl (Hytrin) 5 mg HS PO Last administered on 12/07/16 20:28; Admin Dose 5 MG; Start 12/03/16 at 21:00; Status Future Hold Acetaminophen/ Hydrocodone Bitart ([place] (5/325)) 1 tab Q6H PRN PO PAIN LEVEL 4 -7 Last administered on 12/23/16 22:14; Admin Dose 1 TAB; Start 12/02/16 at 23: 30 Acetaminophen (Tylenol Tab) 650 mg Q6H PRN PO PAIN AND [place] ELEVATED TEMP Last administered on 12/18/16 10:44; Admin Dose 650 MG; Start 12/02/16 at 23:30 Docusate Sodium (Colace) 100 mg BID PO Last administered on 12/08/16 20:32; Admin Dose 100 MG; Start 12/03/16 at 09:00; Status Future Hold Zolpidem Tartrate (Ambien) 5 mg HS PRN PO INSOMNIA Last administered on 00:45; Admin Dose 5 MG; Start 12/02/16 at 23:30 Benazepril HCl (Lotensin) 10 mg DAILY PO Last administered on 12/07/16 08:26; Admin Dose 10 MG; Start 12/04/16 at 09:00; Status Future Hold Collagenase (Santyl) 1 applic DAILY TOP Last administered on 12/28/16 10:07; Admin Dose 1 APPLIC; Start 12/07/16 at 16:00 Lorazepam (Ativan) 2 mg Q2 PRN IV AGITATION/ANXIETY Last administered on 21:54; Admin Dose 2 MG; Start 12/09/16 at 09:30 Morphine Sulfate (morphine) 2 mg Q2H PRN IV PAIN Last administered on 12/20/16 03:22; Admin Dose 2 MG; Start 12/09/16 at 09:30 Acetaminophen 650 mg 650 mg Q6H PRN [place] ELEVATED TEMPERATURE Last administered on 12/09/16 17:53; Admin Dose 650 MG; Start 12/09/16 at 17:00 Piperacillin Sod/ Tazobactam Sod (Zosyn 2.25gm/ 50ml (Pmx)) 50 ml @ 100 mls/hr Q12 IVPB Last administered on 12/28/16 10:06; Admin Dose 100 MLS/HR; Start at 21:00 Metoprolol Tartrate (Lopressor) 5 mg Q4H PRN IV HR>100 Last administered on 22:23; Admin Dose 5 MG; Start 12/09/16 at 17:48 Hydralazine HCl (Apresoline) 10 mg Q6H PRN IV SBP>150mm hg Last administered on 12/19/16 08:50; Admin Dose 10 MG; Start 12/11/16 at 10:30 Morphine Sulfate 2 mg 2 mg Q2H PRN IV PAIN LEVEL 4-7; Start 12/13/16 at 10:00 Caspofungin/ Sodium Chloride (Cancidas/NS) 250 ml @ 250 mls/hr Q24H IVPB Last administered on 12/28/16 11:09; Admin Dose 250 MLS/HR; Start 12/15/16 at 11:00 Metoprolol Tartrate (Lopressor) 12.5 mg BID PO Last administered on 12/28/16 10:06; Admin Dose 12.5 MG; Start 12/16/16 at 21:00 Pantoprazole (Protonix Tab) 40 mg DAILY@06 PO Last administered on 12/28/16 05 :57; Admin Dose 40 MG; Start 12/23/16 at 06:00 Aspirin (Ecotrin) 325 mg DAILY PO Last administered on 12/28/16 10:06; Admin Dose 325 MG; Start 12/24/16 at 09:00 Insulin Glargine (Lantus) 22 unit DAILY@20 SC Last administered on 12/27/16 19 :58; Admin Dose 22 UNIT; Start 12/25/16 at 20:00 Diagnostic Test (Pha) (Accu-Chek) 1 ea 02 XX Last administered on 12/27/16 02: 42; Admin Dose 1 EA; Start 12/25/16 at 02:00 Heparin Sodium (Porcine) (Heparin (5000 Units/0.5 ml)) 5,000 unit BID SC Last administered on 12/28/16 10:12; Admin Dose 5,000 UNIT; Start 12/27/16 at 21:00 YUMIKO ALATORRE NP December 28, 2016 19:31
[2016-12-28] MEDS: INSULIN GLARGINE [LANtus] 3 ML PEN SC SCH (20:19)
[2016-12-29] VITALS (21 sets, daily range): BP systolic 98–142; BP diastolic 53–67; PULSE 68–91; RESP 18–34
[2016-12-29] MEDS: ACCU-CHEK XX SCH (01:56)
[2016-12-29] MEDS: PANTOPRAZOLE (EC) 40 MG TAB PO SCH (05:34)
[2016-12-29 07:29] LABS: ADD SCAN DIFF NO
[2016-12-29 07:39] LABS: ABNORMAL IP MESSAGE 1; BASOPHILS % 0.5 % (0.0-2.0); EOSINOPHILS # 0.1 10^3/ul (0.0-0.5); EOSINOPHILS % 1.3 % (0.0-7.0); HEMATOCRIT 26.9 % (42.0-52.0); HEMOGLOBIN 8.5 g/dl (14.0-18.0); LYMPHOCYTES # 0.6 10^3/ul (0.8-2.9); LYMPHOCYTES % 6.4 % (15.0-51.0); MEAN CORPUSCULAR HEMOGLOBIN 30.9 pg (29.0-33.0); MEAN CORPUSCULAR HGB CONC 31.6 g/dl (32.0-37.0); MEAN CORPUSCULAR VOLUME 97.8 fl (82.0-101.0); MEAN PLATELET VOLUME 9.7 fl (7.4-10.4); MONOCYTES % 11.4 % (0.0-11.0); NEUTROPHIL # 6.9 10^3/ul (1.6-7.5); NEUTROPHILS % 79.6 % (39.0-77.0); PLATELET COUNT 133 10^3/UL (140-415); RED BLOOD COUNT 2.75 10^6/ul (4.70-6.10); WHITE BLOOD COUNT 8.6 10^3/ul (4.8-10.8)
[2016-12-29] MEDS: ALBUTEROL/IPRATROPIUM (NEB) 3 ML AMP HHN SCH ×3 (08:00→19:54)
[2016-12-29 08:02] LABS: CALCIUM 8.1 mg/dl (8.4-10.2); CREATININE 5.82 mg/dl (0.61-1.24); POTASSIUM 3.8 mmol/L (3.5-5.1)
[2016-12-29] MEDS: METOPROLOL 25 MG TAB PO SCH ×2 (08:24→20:35)
[2016-12-29] MEDS: ASPIRIN (EC) 325 MG TAB PO SCH (08:24)
[2016-12-29] MEDS: PIPER-TAZO 2.25 GM (PMX) 50 ML IVPB SCH ×2 (08:25→20:46)
[2016-12-29] MEDS: HEPARIN 5,000 UNIT/0.5 ML VIAL SC SCH ×2 (08:26→20:35)
[2016-12-29] MEDS: INSULIN ASPART [NOVOLOG] 3 ML PEN SC SCH ×5 (08:35→20:38)
[2016-12-29] MEDS: COLLAGENASE 30 GM TUBE TOP SCH (09:56)
[2016-12-29] MEDS: CASPOFUNGIN 50 MG in SOD CHLORIDE 0.9% 250 ML IVPB SCH (11:41)
--- NOTE | 2016-12-29 12:19 | CONS ---
Date/Time of Note Date/Time of Note DATE: 12/29/16 TIME: 12:16 Assessment/Plan Assessment/Plan Additional Assessment/Plan Chest x-ray was reviewed from yesterday which is just showing persistent right lung infiltrative changes. Next Assessment recommendations; 1. Patient admitted for cellulitis involving the left foot due to peripheral vascular disease then developed renal failure on hemodialysis. 2. Episodes of hypercapnic respiratory failure, responding well to BiPAP. 3. Diabetes. 4. Pneumonia. 5. CHF. Continue current treatment. Patient would qualify for home BiPAP. Consultation Date/Type/Reason Admit Date/Time Dec 02, 2016 at 21:01 Initial Consult Date 12/03/16 Type of Consultation: Pulmonary Referring Provider: VIET PARKER MD 24 HR Interval Summary Free Text/Dictation Patient condition is stable. Remains awake and alert. Requiring intermittent BiPAP. General exam; elderly male, awake alert currently in no distress. Exam/Review of Systems Vital Signs Vitals Vital Signs Date Time Temp Pulse Resp B/P Pulse Ox O2 Delivery O2 Flow Rate FiO2 12/29/16 11:34 98.0 78 18 127/60 98 12/29/16 09:30 30 12/29/16 01:26 2.0 12/28/16 19:10 Nasal Cannula Intake and Output 12/28/16 12/28/16 12/29/16 15:00 23:00 07:00 Intake Total 300 ml 600 ml 450 ml Output Total 3000 ml 200 ml Balance -2700 ml 600 ml 250 ml Exam H EENT examination; supple neck, no JVD. No lymphadenopathy. Midline trachea. No thyromegaly. Patient is edentulous. Pharynx is clear. Pupils are midsize and reactive to light. Neck Chest examination; clear to auscultation. S1-S2 audible, no murmurs. Regular rhythm. Abdomen examination; soft, nontender. No organomegaly. Bowel is audible. Extremity examination; no peripheral edema. SU[employer]OR [employer]HICLE examination; no focal deficit. Results Result Diagram: 12/29/16 0630 12/29/16 0630 Results 24 hrs Laboratory Tests Test 12/28/16 17:08 12/28/16 20:15 12/29/16 06:30 12/29/16 07:47 Bedside Glucose 204 150 89 White Blood Count 8.6 Red Blood Count 2.75 L Hemoglobin 8.5 L Hematocrit 26.9 L Mean Corpuscular Volume 97.8 Mean Corpuscular Hemoglobin 30.9 Mean Corpuscular Hemoglobin Concent 31.6 L Red Cell Distribution Width 14.0 Platelet Count 133 L Mean Platelet Volume 9.7 Neutrophils % 79.6 H Lymphocytes % 6.4 L Monocytes % 11.4 H Eosinophils % 1.3 Basophils % 0.5 Nucleated Red Blood Cells % 0.0 Neutrophils # 6.9 Lymphocytes # 0.6 L Monocytes # 1.0 H Eosinophils # 0.1 Basophils # 0.0 Nucleated Red Blood Cells # 0.0 Sodium Level 136 Potassium Level 3.8 Chloride Level 99 Carbon Dioxide Level 27 Anion Gap 14 Blood Urea Nitrogen 36 #H Creatinine 5.82 H Glucose Level 89 Calcium Level 8.1 L Test 12/29/16 11:44 Bedside Glucose 92 Medications Medications Current Medications Ondansetron HCl (Zofran Inj) 4 mg Q6H PRN IV NAUSEA AND/OR VOMITING Last administered on 12/13/16 01:13; Admin Dose 4 MG; Start 12/02/16 at 22:30 Miscellaneous Information 1 ea NOTE XX ; Start 12/02/16 at 23:00 Glucose (Glutose) 15 gm Q15M PRN PO DECREASED GLUCOSE; Start 12/02/16 at 23:00 Glucose (Glutose) 22.5 gm Q15M PRN PO DECREASED GLUCOSE; Start 12/02/16 at 23: 00 Dextrose (D50w Syringe) 25 ml Q15M PRN IV DECREASED GLUCOSE Last administered on 12/10/16 05:52; Admin Dose 25 ML; Start 12/02/16 at 23:00 Dextrose (D50w Syringe) 50 ml Q15M PRN IV DECREASED GLUCOSE; Start 12/02/16 at 23:00 Glucagon (Glucagen) 1 mg Q15M PRN IM DECREASED GLUCOSE; Start 12/02/16 at 23:00 Glucose (Glutose) 15 gm Q15M PRN BUCCAL DECREASED GLUCOSE; Start 12/02/16 at 23 :00 Gabapentin (Neurontin) 800 mg TID PO Last administered on 12/08/16 20:33; Admin Dose 800 MG; Start 12/03/16 at 09:00; Status Future Hold Meclizine HCl (Antivert) 25 mg TID PRN PO dizziness Last administered on 09:37; Admin Dose 25 MG; Start 12/02/16 at 23:00 Terazosin HCl (Hytrin) 5 mg HS PO Last administered on 12/07/16 20:28; Admin Dose 5 MG; Start 12/03/16 at 21:00; Status Future Hold Acetaminophen/ Hydrocodone Bitart ([place] (5/325)) 1 tab Q6H PRN PO PAIN LEVEL 4 -7 Last administered on 12/23/16 22:14; Admin Dose 1 TAB; Start 12/02/16 at 23: 30 Acetaminophen (Tylenol Tab) 650 mg Q6H PRN PO PAIN AND OR ELEVATED TEMP Last administered on 12/18/16 10:44; Admin Dose 650 MG; Start 12/02/16 at 23:30 Docusate Sodium (Colace) 100 mg BID PO Last administered on 12/08/16 20:32; Admin Dose 100 MG; Start 12/03/16 at 09:00; Status Future Hold Zolpidem Tartrate (Ambien) 5 mg HS PRN PO INSOMNIA Last administered on 00:45; Admin Dose 5 MG; Start 12/02/16 at 23:30 Benazepril HCl (Lotensin) 10 mg DAILY PO Last administered on 12/07/16 08:26; Admin Dose 10 MG; Start 12/04/16 at 09:00; Status Future Hold Collagenase (Santyl) 1 applic DAILY TOP Last administered on 12/29/16 09:56; Admin Dose 1 APPLIC; Start 12/07/16 at 16:00 Lorazepam (Ativan) 2 mg Q2 PRN IV AGITATION/ANXIETY Last administered on 21:54; Admin Dose 2 MG; Start 12/09/16 at 09:30 Morphine Sulfate (morphine) 2 mg Q2H PRN IV PAIN Last administered on 12/20/16 03:22; Admin Dose 2 MG; Start 12/09/16 at 09:30 Acetaminophen 650 mg 650 mg Q6H PRN [place] ELEVATED TEMPERATURE Last administered on 12/09/16 17:53; Admin Dose 650 MG; Start 12/09/16 at 17:00 Piperacillin Sod/ Tazobactam Sod (Zosyn 2.25gm/ 50ml (Pmx)) 50 ml @ 100 mls/hr Q12 IVPB Last administered on 12/29/16 08:25; Admin Dose 100 MLS/HR; Start at 21:00 Metoprolol Tartrate (Lopressor) 5 mg Q4H PRN IV HR>100 Last administered on 22:23; Admin Dose 5 MG; Start 12/09/16 at 17:48 Hydralazine HCl (Apresoline) 10 mg Q6H PRN IV SBP>150mm hg Last administered on 12/19/16 08:50; Admin Dose 10 MG; Start 12/11/16 at 10:30 Morphine Sulfate 2 mg 2 mg Q2H PRN IV PAIN LEVEL 4-7; Start 12/13/16 at 10:00 Caspofungin/ Sodium Chloride (Cancidas/NS) 250 ml @ 250 mls/hr Q24H IVPB Last administered on 12/29/16 11:41; Admin Dose 250 MLS/HR; Start 12/15/16 at 11:00 Metoprolol Tartrate (Lopressor) 12.5 mg BID PO Last administered on 12/29/16 08:24; Admin Dose 12.5 MG; Start 12/16/16 at 21:00 Pantoprazole (Protonix Tab) 40 mg DAILY@06 PO Last administered on 12/29/16 05 :34; Admin Dose 40 MG; Start 12/23/16 at 06:00 Aspirin (Ecotrin) 325 mg DAILY PO Last administered on 12/29/16 08:24; Admin Dose 325 MG; Start 12/24/16 at 09:00 Insulin Glargine (Lantus) 22 unit DAILY@20 SC Last administered on 12/28/16 20 :19; Admin Dose 22 UNIT; Start 12/25/16 at 20:00 Diagnostic Test (Pha) (Accu-Chek) 1 ea 02 XX Last administered on 12/27/16 02: 42; Admin Dose 1 EA; Start 12/25/16 at 02:00 Heparin Sodium (Porcine) (Heparin (5000 Units/0.5 ml)) 5,000 unit BID SC Last administered on 12/29/16 08:26; Admin Dose 5,000 UNIT; Start 12/27/16 at 21:00 IKE MULLER December 29, 2016 12:19
[2016-12-29] MEDS: LORAZEPAM 2 MG INJ IV PRN (13:45)
--- NOTE | 2016-12-29 13:58 | PN ---
DATE: 12/29/2016 SUBJECTIVE: The patient did have hematuria before from pulling out the Molina catheter that he had. His is at his bedside, and she showed me that he did urinate and urinated about 100 mL, and th e urine is clear. There is no more bleeding. OBJECTIVE: VITAL SIGNS: His temperature is 98.0, the blood pressure 127/60, pulse 79, respiration 18. ABDOMEN: Soft. The bladder is not distended. LABORATORY DATA: CBC shows a white count of 8.6, hemoglobin 8.5, hematocrit 26.9, platelet count 13 3,000. BUN is 36, creatinine 5.82. The patient has been on dialysis. IMPRESSION: Gross hematuria that was traumatic from pulling the catheter with the balloon inflated. The hematuria has since subsided. PLAN: Not insert a Molina catheter and keep looking at the color of his urine. So far he is doing w ell. Dictated By: JOE KUMAR/MICHELLE Conf#: [id number] DID#: [id number]
--- NOTE | 2016-12-29 14:12 | CONS ---
Date/Time of Note Date/Time of Note DATE: 12/29/16 TIME: 14:10 Assessment/Plan Assessment/Plan Additional Assessment/Plan 1. Oliguric to Anuric Acute kidney injury 2/2 ATN- started on HD on 12/09/16 for acute fluid overload and Pulmonary edema 2. acute resp failure intubated on ventilator -now extubated on 12/10/2016- then again reintubated on 12/13/2016- now self extubated on 12/18/16 3. Moderate to large right pleural effusion s/p Right thoracentesis 900 cc drained on 12/16/16 2. Left foot diabetic ulcer/cellulitis currently on IV antibiotics, Zosyn and vancomycin. 3. History of diabetes mellitus, insulin-dependent with lower extremity neuropathy. 4. History of hypertension. 5. History of aortic stenosis with diastolic dysfunction with ejection fraction 60% on echocardiogram. PLAN: s/p right thoracentesis 900 cc drained on 12/16/16, Us showed small left pleural effusion S/p lexiscan showed non reversible perfusion defect with EF39% s/p Permacath placement, Had a HD yesterday through permacath- 2.5 L removed, Bp stable HD placement done at [facility] HD [facility] will continue to follow up if not discharged today then we will order HD for tomorrow Consultation Date/Type/Reason Admit Date/Time Dec 02, 2016 at 21:01 Initial Consult Date Type of Consultation: NEPHROLOGY Referring Provider: VIET PARKER MD 24 HR Interval Summary Free Text/Dictation s/p HD yesterday, HD placement done , Awaiting ID recommendations Exam/Review of Systems Vital Signs Vitals Vital Signs Date Time Temp Pulse Resp B/P Pulse Ox O2 Delivery O2 Flow Rate FiO2 12/29/16 13:46 83 26 95 Nasal Cannula 2.0 12/29/16 11:34 98.0 127/60 12/29/16 09:30 30 Intake and Output 12/28/16 12/28/16 12/29/16 15:00 23:00 07:00 Intake Total 300 ml 600 ml 450 ml Output Total 3000 ml 200 ml Balance -2700 ml 600 ml 250 ml Exam Constitutional: alert Neck: supple Respiratory: crackles/rales Cardiovascular: nl pulses, regular rate and rhythm Gastrointestinal: non-tender, soft Musculoskeletal: nl extremities to inspection Extremities: No edema Neurological: AVIATION MECHANIC II-XII intact, nl mental status, nl speech Skin: rash or lesions (L 1st toe: plantar aspect has eschar, dry non-TTP) Results Result Diagram: 12/29/16 0630 12/29/16 0630 Results 24 hrs Laboratory Tests Test 12/28/16 17:08 12/28/16 20:15 12/29/16 06:30 12/29/16 07:47 Bedside Glucose 204 150 89 White Blood Count 8.6 Red Blood Count 2.75 L Hemoglobin 8.5 L Hematocrit 26.9 L Mean Corpuscular Volume 97.8 Mean Corpuscular Hemoglobin 30.9 Mean Corpuscular Hemoglobin Concent 31.6 L Red Cell Distribution Width 14.0 Platelet Count 133 L Mean Platelet Volume 9.7 Neutrophils % 79.6 H Lymphocytes % 6.4 L Monocytes % 11.4 H Eosinophils % 1.3 Basophils % 0.5 Nucleated Red Blood Cells % 0.0 Neutrophils # 6.9 Lymphocytes # 0.6 L Monocytes # 1.0 H Eosinophils # 0.1 Basophils # 0.0 Nucleated Red Blood Cells # 0.0 Sodium Level 136 Potassium Level 3.8 Chloride Level 99 Carbon Dioxide Level 27 Anion Gap 14 Blood Urea Nitrogen 36 #H Creatinine 5.82 H Glucose Level 89 Calcium Level 8.1 L Test 12/29/16 11:44 12/29/16 14:05 Bedside Glucose 92 166 Medications Medications Current Medications Ondansetron HCl (Zofran Inj) 4 mg Q6H PRN IV NAUSEA AND/OR VOMITING Last administered on 12/13/16 01:13; Admin Dose 4 MG; Start 12/02/16 at 22:30 Miscellaneous Information 1 ea NOTE XX ; Start 12/02/16 at 23:00 Glucose (Glutose) 15 gm Q15M PRN PO DECREASED GLUCOSE; Start 12/02/16 at 23:00 Glucose (Glutose) 22.5 gm Q15M PRN PO DECREASED GLUCOSE; Start 12/02/16 at 23: 00 Dextrose (D50w Syringe) 25 ml Q15M PRN IV DECREASED GLUCOSE Last administered on 12/10/16 05:52; Admin Dose 25 ML; Start 12/02/16 at 23:00 Dextrose (D50w Syringe) 50 ml Q15M PRN IV DECREASED GLUCOSE; Start 12/02/16 at 23:00 Glucagon (Glucagen) 1 mg Q15M PRN IM DECREASED GLUCOSE; Start 12/02/16 at 23:00 Glucose (Glutose) 15 gm Q15M PRN BUCCAL DECREASED GLUCOSE; Start 12/02/16 at 23 :00 Gabapentin (Neurontin) 800 mg TID PO Last administered on 12/08/16 20:33; Admin Dose 800 MG; Start 12/03/16 at 09:00; Status Future Hold Meclizine HCl (Antivert) 25 mg TID PRN PO dizziness Last administered on 09:37; Admin Dose 25 MG; Start 12/02/16 at 23:00 Terazosin HCl (Hytrin) 5 mg HS PO Last administered on 12/07/16 20:28; Admin Dose 5 MG; Start 12/03/16 at 21:00; Status Future Hold Acetaminophen/ Hydrocodone Bitart ([place] (5/325)) 1 tab Q6H PRN PO PAIN LEVEL 4 -7 Last administered on 12/23/16 22:14; Admin Dose 1 TAB; Start 12/02/16 at 23: 30 Acetaminophen (Tylenol Tab) 650 mg Q6H PRN PO PAIN AND OR ELEVATED TEMP Last administered on 12/18/16 10:44; Admin Dose 650 MG; Start 12/02/16 at 23:30 Docusate Sodium (Colace) 100 mg BID PO Last administered on 12/08/16 20:32; Admin Dose 100 MG; Start 12/03/16 at 09:00; Status Future Hold Zolpidem Tartrate (Ambien) 5 mg HS PRN PO INSOMNIA Last administered on 00:45; Admin Dose 5 MG; Start 12/02/16 at 23:30 Benazepril HCl (Lotensin) 10 mg DAILY PO Last administered on 12/07/16 08:26; Admin Dose 10 MG; Start 12/04/16 at 09:00; Status Future Hold Collagenase (Santyl) 1 applic DAILY TOP Last administered on 12/29/16 09:56; Admin Dose 1 APPLIC; Start 12/07/16 at 16:00 Lorazepam (Ativan) 2 mg Q2 PRN IV AGITATION/ANXIETY Last administered on 13:45; Admin Dose 2 MG; Start 12/09/16 at 09:30 Morphine Sulfate (morphine) 2 mg Q2H PRN IV PAIN Last administered on 12/20/16 03:22; Admin Dose 2 MG; Start 12/09/16 at 09:30 Acetaminophen 650 mg 650 mg Q6H PRN [place] ELEVATED TEMPERATURE Last administered on 12/09/16 17:53; Admin Dose 650 MG; Start 12/09/16 at 17:00 Piperacillin Sod/ Tazobactam Sod (Zosyn 2.25gm/ 50ml (Pmx)) 50 ml @ 100 mls/hr Q12 IVPB Last administered on 12/29/16 08:25; Admin Dose 100 MLS/HR; Start at 21:00 Metoprolol Tartrate (Lopressor) 5 mg Q4H PRN IV HR>100 Last administered on 22:23; Admin Dose 5 MG; Start 12/09/16 at 17:48 Hydralazine HCl (Apresoline) 10 mg Q6H PRN IV SBP>150mm hg Last administered on 12/19/16 08:50; Admin Dose 10 MG; Start 12/11/16 at 10:30 Morphine Sulfate 2 mg 2 mg Q2H PRN IV PAIN LEVEL 4-7; Start 12/13/16 at 10:00 Caspofungin/ Sodium Chloride (Cancidas/NS) 250 ml @ 250 mls/hr Q24H IVPB Last administered on 12/29/16 11:41; Admin Dose 250 MLS/HR; Start 12/15/16 at 11:00 Metoprolol Tartrate (Lopressor) 12.5 mg BID PO Last administered on 12/29/16 08:24; Admin Dose 12.5 MG; Start 12/16/16 at 21:00 Pantoprazole (Protonix Tab) 40 mg DAILY@06 PO Last administered on 12/29/16 05 :34; Admin Dose 40 MG; Start 12/23/16 at 06:00 Aspirin (Ecotrin) 325 mg DAILY PO Last administered on 12/29/16 08:24; Admin Dose 325 MG; Start 12/24/16 at 09:00 Insulin Glargine (Lantus) 22 unit DAILY@20 SC Last administered on 12/28/16 20 :19; Admin Dose 22 UNIT; Start 12/25/16 at 20:00 Diagnostic Test (Pha) (Accu-Chek) 1 ea 02 XX Last administered on 12/27/16 02: 42; Admin Dose 1 EA; Start 12/25/16 at 02:00 Heparin Sodium (Porcine) (Heparin (5000 Units/0.5 ml)) 5,000 unit BID SC Last administered on 12/29/16 08:26; Admin Dose 5,000 UNIT; Start 12/27/16 at 21:00 TASHIA MCGARRY MD December 29, 2016 14:12
--- NOTE | 2016-12-29 14:32 | PN ---
Date/Time of Note Date/Time of Note DATE: 12/29/16 TIME: 14:27 Assessment/Plan VTE Prophylaxis VTE Prophylaxis Intervention: SCD's Lines/Catheters IV Catheter Type (from [facility]): Saline Lock Urinary Cath still in place: No Assessment/Plan Chief Complaint/Hosp Course Assessment/Plan - Acute respiratory failure secondary to pulmonary edema, resolved. Dr. Alvarez is following from pulmonology standpoint. - Bilateral pleural effusion, this post right sided thoracentesis with removal of 900 cc of fluid. - Acute renal failure, Dr. Remy is following in nephrology consultation. Continue hemodialysis per nephrology. Pending permacath placement by vascular surgery. - Acute to subacute right occipital lobe ischemic infarct per CT, Dr Morris is following in neurology consultation. - Paroxysmal atrial fibrillation and positive troponin. Dr. Cobian is following and cardiology consultation. Status post Lexiscan on 12/24. - Fungemia, om Caspofungin. Dr. Pascual is following in infection disease consultation. - Diabetic foot ulcer of the left foot, Dr Lin is following in podiatry consultation. - Cellulitis of left foot, 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 and left fourth proximal phalanx per bone scan. Continue antibiotics per ID. - Aortic stenosis - Diastolic dysfunction congestive heart failure with preserved ejection fraction of 60%. - DM, Hgb A1c is 8.7, continue Lantus and pre-meal NovoLog and NovoLog per sliding scale. -Traumatic hematuria, resolved. Dr. Grey urology consult is appreciated. Await for final recommendation on antibiotics for osteomyelitis, DC planning Further recommendations based on clinical course. Plan of care discussed with Dr. Heredia. Problems: Subjective 24 Hr Interval Summary Free Text/Dictation Patient's complains of shortness of breath, continue breathing treatments, will check chest x-ray, patient status post hemodialysis yesterday. Exam/Review of Systems Vital Signs Vitals Vital Signs Date Time Temp Pulse Resp B/P Pulse Ox O2 Delivery O2 Flow Rate FiO2 12/29/16 14:22 96 2.0 12/29/16 14:10 83 30 12/29/16 13:46 26 Nasal Cannula 12/29/16 11:34 98.0 127/60 Intake and Output 12/28/16 12/28/16 12/29/16 15:00 23:00 07:00 Intake Total 300 ml 600 ml 450 ml Output Total 3000 ml 200 ml Balance -2700 ml 600 ml 250 ml Exam Constitutional: awake, alert Psych: no complaints Head: atraumatic, normocephalic Eyes: nl conjunctiva ENMT: nl external ears & nose Neck: non-tender, supple Respiratory: clear to auscultation, normal air movement Cardiovascular: nl pulses, regular rate and rhythm, systolic murmur Gastrointestinal: non-tender, soft Musculoskeletal: nl extremities to inspection Extremities: normal pulses Neurological: alert *3 Skin: nl turgor, left big toe ulcer. R IJ HD cath Results Result Diagram: 12/29/16 0630 12/29/16 0630 Results 24 hrs Laboratory Tests Test 12/28/16 17:08 12/28/16 20:15 12/29/16 06:30 12/29/16 07:47 Bedside Glucose 204 150 89 White Blood Count 8.6 Red Blood Count 2.75 L Hemoglobin 8.5 L Hematocrit 26.9 L Mean Corpuscular Volume 97.8 Mean Corpuscular Hemoglobin 30.9 Mean Corpuscular Hemoglobin Concent 31.6 L Red Cell Distribution Width 14.0 Platelet Count 133 L Mean Platelet Volume 9.7 Neutrophils % 79.6 H Lymphocytes % 6.4 L Monocytes % 11.4 H Eosinophils % 1.3 Basophils % 0.5 Nucleated Red Blood Cells % 0.0 Neutrophils # 6.9 Lymphocytes # 0.6 L Monocytes # 1.0 H Eosinophils # 0.1 Basophils # 0.0 Nucleated Red Blood Cells # 0.0 Sodium Level 136 Potassium Level 3.8 Chloride Level 99 Carbon Dioxide Level 27 Anion Gap 14 Blood Urea Nitrogen 36 #H Creatinine 5.82 H Glucose Level 89 Calcium Level 8.1 L Test 12/29/16 11:44 12/29/16 14:05 Bedside Glucose 92 166 Medications Medications Current Medications Ondansetron HCl (Zofran Inj) 4 mg Q6H PRN IV NAUSEA AND/OR VOMITING Last administered on 12/13/16 01:13; Admin Dose 4 MG; Start 12/02/16 at 22:30 Miscellaneous Information 1 ea NOTE XX ; Start 12/02/16 at 23:00 Glucose (Glutose) 15 gm Q15M PRN PO DECREASED GLUCOSE; Start 12/02/16 at 23:00 Glucose (Glutose) 22.5 gm Q15M PRN PO DECREASED GLUCOSE; Start 12/02/16 at 23: 00 Dextrose (D50w Syringe) 25 ml Q15M PRN IV DECREASED GLUCOSE Last administered on 12/10/16 05:52; Admin Dose 25 ML; Start 12/02/16 at 23:00 Dextrose (D50w Syringe) 50 ml Q15M PRN IV DECREASED GLUCOSE; Start 12/02/16 at 23:00 Glucagon (Glucagen) 1 mg Q15M PRN IM DECREASED GLUCOSE; Start 12/02/16 at 23:00 Glucose (Glutose) 15 gm Q15M PRN BUCCAL DECREASED GLUCOSE; Start 12/02/16 at 23 :00 Gabapentin (Neurontin) 800 mg TID PO Last administered on 12/08/16 20:33; Admin Dose 800 MG; Start 12/03/16 at 09:00; Status Future Hold Meclizine HCl (Antivert) 25 mg TID PRN PO dizziness Last administered on 09:37; Admin Dose 25 MG; Start 12/02/16 at 23:00 Terazosin HCl (Hytrin) 5 mg HS PO Last administered on 12/07/16 20:28; Admin Dose 5 MG; Start 12/03/16 at 21:00; Status Future Hold Acetaminophen/ Hydrocodone Bitart ([place] (5/325)) 1 tab Q6H PRN PO PAIN LEVEL 4 -7 Last administered on 12/23/16 22:14; Admin Dose 1 TAB; Start 12/02/16 at 23: 30 Acetaminophen (Tylenol Tab) 650 mg Q6H PRN PO PAIN AND OR ELEVATED TEMP Last administered on 12/18/16 10:44; Admin Dose 650 MG; Start 12/02/16 at 23:30 Docusate Sodium (Colace) 100 mg BID PO Last administered on 12/08/16 20:32; Admin Dose 100 MG; Start 12/03/16 at 09:00; Status Future Hold Zolpidem Tartrate (Ambien) 5 mg HS PRN PO INSOMNIA Last administered on 00:45; Admin Dose 5 MG; Start 12/02/16 at 23:30 Benazepril HCl (Lotensin) 10 mg DAILY PO Last administered on 12/07/16 08:26; Admin Dose 10 MG; Start 12/04/16 at 09:00; Status Future Hold Collagenase (Santyl) 1 applic DAILY TOP Last administered on 12/29/16 09:56; Admin Dose 1 APPLIC; Start 12/07/16 at 16:00 Lorazepam (Ativan) 2 mg Q2 PRN IV AGITATION/ANXIETY Last administered on 13:45; Admin Dose 2 MG; Start 12/09/16 at 09:30 Morphine Sulfate (morphine) 2 mg Q2H PRN IV PAIN Last administered on 12/20/16 03:22; Admin Dose 2 MG; Start 12/09/16 at 09:30 Acetaminophen 650 mg 650 mg Q6H PRN [place] ELEVATED TEMPERATURE Last administered on 12/09/16 17:53; Admin Dose 650 MG; Start 12/09/16 at 17:00 Piperacillin Sod/ Tazobactam Sod (Zosyn 2.25gm/ 50ml (Pmx)) 50 ml @ 100 mls/hr Q12 IVPB Last administered on 12/29/16 08:25; Admin Dose 100 MLS/HR; Start at 21:00 Metoprolol Tartrate (Lopressor) 5 mg Q4H PRN IV HR>100 Last administered on 22:23; Admin Dose 5 MG; Start 12/09/16 at 17:48 Hydralazine HCl (Apresoline) 10 mg Q6H PRN IV SBP>150mm hg Last administered on 12/19/16 08:50; Admin Dose 10 MG; Start 12/11/16 at 10:30 Morphine Sulfate 2 mg 2 mg Q2H PRN IV PAIN LEVEL 4-7; Start 12/13/16 at 10:00 Caspofungin/ Sodium Chloride ([place]/NS) 250 ml @ 250 mls/hr Q24H IVPB Last administered on 12/29/16 11:41; Admin Dose 250 MLS/HR; Start 12/15/16 at 11:00 Metoprolol Tartrate (Lopressor) 12.5 mg BID PO Last administered on 12/29/16 08:24; Admin Dose 12.5 MG; Start 12/16/16 at 21:00 Pantoprazole (Protonix Tab) 40 mg DAILY@06 PO Last administered on 12/29/16 05 :34; Admin Dose 40 MG; Start 12/23/16 at 06:00 Aspirin (Ecotrin) 325 mg DAILY PO Last administered on 12/29/16 08:24; Admin Dose 325 MG; Start 12/24/16 at 09:00 Insulin Glargine (Lantus) 22 unit DAILY@20 SC Last administered on 12/28/16 20 :19; Admin Dose 22 UNIT; Start 12/25/16 at 20:00 Heparin Sodium (Porcine) (Heparin (5000 Units/0.5 ml)) 5,000 unit BID SC Last administered on 12/29/16 08:26; Admin Dose 5,000 UNIT; Start 12/27/16 at 21:00 Diagnostic Test (Pha) (Accu-Chek) 1 ea 02 XX ; Start 12/30/16 at 02:00 KIMBERLY NOYOLA December 29, 2016 14:31
--- NOTE | 2016-12-29 15:46 | RADRPT ---
PROCEDURE: XR Chest. CLINICAL INDICATION: Shortness of breath. TECHNIQUE: Single frontal view. COMPARISON: 12/28/2016. FINDINGS: There is a tunneled right internal jugular vein dialysis catheter in satisfactory position with the tip in the upper right atrium. Bilateral air space disease consistent with pulmonary edema is sligh tly worse than seen previously. Superimposed pneumonia cannot be excluded. The heart size is normal. There is calcification in the aorta consistent with atherosclerosis. There is no pleural effusion. There is no pneumothorax. IMPRESSION: 1. Worse appearance of the lungs. 2. No other change from 12/28/2016. RPTAT: QQ .Bruce Zurita MD, MD Date Time Electronically viewed and signed by .Bruce Zurita MD, MD on 12/29/2016 15:46 .R/
--- NOTE | 2016-12-29 15:48 | CONS ---
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 Blood cultures from HD catheter on 12/13/2016 are negative to date. 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 superficial swab grew inna only - right pleural effusion s/p thoracentesis with .9L removed on 12/16/2016; (Note: there is no pleural fluid cx since orders were placed after Right thoracentesis , and Left thoracentesis was not performed on 12/17/16 d/t insufficient fluid) - funguria - ARANZA, on HD from 12/09/2016 - A fib; now in SR - troponin+ - small nonreversible perfusion abnormality in the inferoapical and inferior carver; EF 36% per Lexiscan 12/24/2016 - severe , EF 40-45% per TTE 12/17/16 - DM - Hgb A1c 8.7% - HTN associated with DM - Hypoxia requiring Bipap ?fluid overload recommendations: - continue renally dosed pip/tazo (12/03/2016) empirically for diabetic foot infection while in hospital; d/c on po Levaquin/Flagyl dotty complete course - ultimately, Pt needs 6 weeks of antibiotics to treat 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 and left fourth proximal phalanx: 12/03/2016 through 01/15/2017 management d/w Pt, his , [employer] and RN Problems: Consultation Date/Type/Reason Admit Date/Time Dec 02, 2016 at 21:01 Type of Consultation: id Referring Provider: VIET PARKER MD Exam/Review of Systems Vital Signs Vitals Vital Signs Date Time Temp Pulse Resp B/P Pulse Ox O2 Delivery O2 Flow Rate FiO2 5/17/17 14:22 96 2.0 12/29/16 14:10 83 30 12/29/16 13:46 26 Nasal Cannula 12/29/16 11:34 98.0 127/60 Intake and Output 12/28/16 12/28/16 12/29/16 15:00 23:00 07:00 Intake Total 300 ml 600 ml 450 ml Output Total 3000 ml 200 ml Balance -2700 ml 600 ml 250 ml Exam Constitutional: alert, oriented, well developed Psych: nl mood/affect, no complaints Eyes: EOMI, PERRL, nl conjunctiva, nl lids, nl sclera Neck: non-tender, supple Respiratory: clear to auscultation, normal air movement Cardiovascular: nl pulses, regular rate and rhythm Gastrointestinal: nl liver, spleen, non-tender, soft Results Result Diagram: 12/29/16 0630 12/29/16 0630 Results 24 hrs Laboratory Tests Test 12/28/16 17:08 12/28/16 20:15 12/29/16 06:30 12/29/16 07:47 Bedside Glucose 204 150 89 White Blood Count 8.6 Red Blood Count 2.75 L Hemoglobin 8.5 L Hematocrit 26.9 L Mean Corpuscular Volume 97.8 Mean Corpuscular Hemoglobin 30.9 Mean Corpuscular Hemoglobin Concent 31.6 L Red Cell Distribution Width 14.0 Platelet Count 133 L Mean Platelet Volume 9.7 Neutrophils % 79.6 H Lymphocytes % 6.4 L Monocytes % 11.4 H Eosinophils % 1.3 Basophils % 0.5 Nucleated Red Blood Cells % 0.0 Neutrophils # 6.9 Lymphocytes # 0.6 L Monocytes # 1.0 H Eosinophils # 0.1 Basophils # 0.0 Nucleated Red Blood Cells # 0.0 Sodium Level 136 Potassium Level 3.8 Chloride Level 99 Carbon Dioxide Level 27 Anion Gap 14 Blood Urea Nitrogen 36 #H Creatinine 5.82 H Glucose Level 89 Calcium Level 8.1 L Test 12/29/16 11:44 12/29/16 14:05 Bedside Glucose 92 166 Medications Medications Current Medications Ondansetron HCl (Zofran Inj) 4 mg Q6H PRN IV NAUSEA AND/OR VOMITING Last administered on 12/13/16t 01:13; Admin Dose 4 MG; Start 12/02/16 at 22:30 Miscellaneous Information 1 ea NOTE XX ; Start 12/02/16 at 23:00 Glucose (Glutose) 15 gm Q15M PRN PO DECREASED GLUCOSE; Start 12/02/16 at 23:00 Glucose (Glutose) 22.5 gm Q15M PRN PO DECREASED GLUCOSE; Start 12/02/16 at 23: 00 Dextrose (D50w Syringe) 25 ml Q15M PRN IV DECREASED GLUCOSE Last administered on 12/10/16 05:52; Admin Dose 25 ML; Start 12/02/16 at 23:00 Dextrose (D50w Syringe) 50 ml Q15M PRN IV DECREASED GLUCOSE; Start 12/02/16 at 23:00 Glucagon (Glucagen) 1 mg Q15M PRN IM DECREASED GLUCOSE; Start 12/02/16 at 23:00 Glucose (Glutose) 15 gm Q15M PRN BUCCAL DECREASED GLUCOSE; Start 12/02/16 at 23 :00 Gabapentin (Neurontin) 800 mg TID PO Last administered on 12/08/16 20:33; Admin Dose 800 MG; Start 12/03/16 at 09:00; Status Future Hold Meclizine HCl (Antivert) 25 mg TID PRN PO dizziness Last administered on 09:37; Admin Dose 25 MG; Start 12/02/16 at 23:00 Terazosin HCl (Hytrin) 5 mg HS PO Last administered on 12/07/16 20:28; Admin Dose 5 MG; Start 12/03/16 at 21:00; Status Future Hold Acetaminophen/ Hydrocodone Bitart ([place] (5/325)) 1 tab Q6H PRN PO PAIN LEVEL 4 -7 Last administered on 12/23/16 22:14; Admin Dose 1 TAB; Start 12/02/16 at 23: 30 Acetaminophen (Tylenol Tab) 650 mg Q6H PRN PO PAIN AND OR ELEVATED TEMP Last administered on 12/18/16 10:44; Admin Dose 650 MG; Start 12/02/16 at 23:30 Docusate Sodium (Colace) 100 mg BID PO Last administered on 12/08/16 20:32; Admin Dose 100 MG; Start 12/03/16 at 09:00; Status Future Hold Zolpidem Tartrate (Ambien) 5 mg HS PRN PO INSOMNIA Last administered on 00:45; Admin Dose 5 MG; Start 12/02/16 at 23:30 Benazepril HCl (Lotensin) 10 mg DAILY PO Last administered on 12/07/16 08:26; Admin Dose 10 MG; Start 12/04/16 at 09:00; Status Future Hold Collagenase (Santyl) 1 applic DAILY TOP Last administered on 12/29/16 09:56; Admin Dose 1 APPLIC; Start 12/07/16 at 16:00 Lorazepam (Ativan) 2 mg Q2 PRN IV AGITATION/ANXIETY Last administered on 13:45; Admin Dose 2 MG; Start 12/09/16 at 09:30 Morphine Sulfate (morphine) 2 mg Q2H PRN IV PAIN Last administered on 12/20/16 03:22; Admin Dose 2 MG; Start 12/09/16 at 09:30 Acetaminophen 650 mg 650 mg Q6H PRN [place] ELEVATED TEMPERATURE Last administered on 12/09/16 17:53; Admin Dose 650 MG; Start 12/09/16 at 17:00 Piperacillin Sod/ Tazobactam Sod (Zosyn 2.25gm/ 50ml (Pmx)) 50 ml @ 100 mls/hr Q12 IVPB Last administered on 12/29/16 08:25; Admin Dose 100 MLS/HR; Start at 21:00 Metoprolol Tartrate (Lopressor) 5 mg Q4H PRN IV HR>100 Last administered on 22:23; Admin Dose 5 MG; Start 12/09/16 at 17:48 Hydralazine HCl (Apresoline) 10 mg Q6H PRN IV SBP>150mm hg Last administered on 12/19/16 08:50; Admin Dose 10 MG; Start 12/11/16 at 10:30 Morphine Sulfate (morphine) 2 mg Q2H PRN IV PAIN LEVEL 4-7; Start 12/13/16 at 10 :00 Metoprolol Tartrate (Lopressor) 12.5 mg BID PO Last administered on 12/29/16 08:24; Admin Dose 12.5 MG; Start 12/16/16 at 21:00 Pantoprazole (Protonix Tab) 40 mg DAILY@06 PO Last administered on 12/29/16 05 :34; Admin Dose 40 MG; Start 12/23/16 at 06:00 Aspirin (Ecotrin) 325 mg DAILY PO Last administered on 12/29/16 08:24; Admin Dose 325 MG; Start 12/24/16 at 09:00 Insulin Glargine (Lantus) 22 unit DAILY@20 SC Last administered on 12/28/16 20 :19; Admin Dose 22 UNIT; Start 12/25/16 at 20:00 Heparin Sodium (Porcine) (Heparin (5000 Units/0.5 ml)) 5,000 unit BID SC Last administered on 12/29/16 08:26; Admin Dose 5,000 UNIT; Start 12/27/16 at 21:00 Diagnostic Test (Pha) (Accu-Chek) 1 ea 02 XX ; Start 12/30/16 at 02:00 NIKHIL RAM MD December 29, 2016 15:48
[2016-12-29] MEDS ORDERED: INSULIN ASPART [NOVOLOG] 3 ML PEN SC SCH (18:05)
[2016-12-29 19:14] LABS: AADO2 Arterial 36.5 mmHg (7.0-24.0); Allen Test ACCEPTAB; Arterial Base Excess 0.8 mmol/L (-3.0-3); Arterial COHb 0.3 % (0.0-3.0); Arterial Fraction of Oxyhgb 97.9 % (93.0-99.0); Arterial HCO3 24.8 mmol/L (22.0-26.0); Arterial MetHb 0.3 % (0.0-1.5); Arterial Total Hemglobin 9.6 g/dl (12.0-18.0); Blood Gas IEPAP 20/8; Blood Gas PS 12; MODE MASK - BIPAP
[2016-12-29] MEDS: INSULIN GLARGINE [LANtus] 3 ML PEN SC SCH (20:32)
[2016-12-30] VITALS (25 sets, daily range): BP systolic 118–141; BP diastolic 57–76; PULSE 61–87; RESP 16–20
[2016-12-30] MEDS ORDERED: ACCU-CHEK XX SCH (02:00)
[2016-12-30] MEDS: ACCU-CHEK XX SCH (02:12)
[2016-12-30] MEDS: PANTOPRAZOLE (EC) 40 MG TAB PO SCH (06:02)
[2016-12-30 07:35] LABS: ADD SCAN DIFF NO
[2016-12-30 07:40] LABS: BASOPHILS % 0.5 % (0.0-2.0); EOSINOPHILS # 0.1 10^3/ul (0.0-0.5); EOSINOPHILS % 1.3 % (0.0-7.0); HEMOGLOBIN 8.5 g/dl (14.0-18.0); LYMPHOCYTES # 0.8 10^3/ul (0.8-2.9); MEAN CORPUSCULAR HEMOGLOBIN 30.9 pg (29.0-33.0); MEAN CORPUSCULAR HGB CONC 31.5 g/dl (32.0-37.0); MEAN CORPUSCULAR VOLUME 98.2 fl (82.0-101.0); MEAN PLATELET VOLUME 10.2 fl (7.4-10.4); MONOCYTE # 0.8 10^3/ul (0.3-0.9); MONOCYTES % 10.5 % (0.0-11.0); NEUTROPHIL # 5.8 10^3/ul (1.6-7.5); NEUTROPHILS % 77.2 % (39.0-77.0); PLATELET COUNT 134 10^3/UL (140-415); RED BLOOD COUNT 2.75 10^6/ul (4.70-6.10); RED CELL DISTRIBUTION WIDTH 14.1 % (11.5-14.5); WHITE BLOOD COUNT 7.5 10^3/ul (4.8-10.8)
[2016-12-30] MEDS: INSULIN ASPART [NOVOLOG] 3 ML PEN SC SCH ×7 (07:42→20:56)
[2016-12-30 08:02] LABS: POTASSIUM 3.5 mmol/L (3.5-5.1)
[2016-12-30 08:04] LABS: CREATININE 6.61 mg/dl (0.61-1.24)
[2016-12-30 08:05] LABS: CALCIUM 8.4 mg/dl (8.4-10.2)
[2016-12-30] MEDS: ALBUTEROL/IPRATROPIUM (NEB) 3 ML AMP HHN SCH ×2 (08:05→20:29)
[2016-12-30] MEDS: HEPARIN 5,000 UNIT/0.5 ML VIAL SC SCH (08:28)
[2016-12-30] MEDS: COLLAGENASE 30 GM TUBE TOP SCH (08:31)
[2016-12-30] MEDS: PIPER-TAZO 2.25 GM (PMX) 50 ML IVPB SCH ×2 (08:32→20:54)
[2016-12-30] MEDS: METOPROLOL 25 MG TAB PO SCH ×2 (08:34→20:53)
[2016-12-30] MEDS: ASPIRIN (EC) 325 MG TAB PO SCH (08:36)
--- NOTE | 2016-12-30 13:05 | PN ---
Date/Time of Note Date/Time of Note DATE: 12/30/16 TIME: 13:01 Assessment/Plan Lines/Catheters IV Catheter Type (from Nrs): Saline Lock [place] in Place (from Nrsg): No Assessment/Plan Problems: (1) Non-pressure chronic ulcer of other part of left foot with fat layer exposed (2) Peripheral vascular disease (3) Diabetes, polyneuropathy Assessment/Plan This is a 66-year-old male patient with chronic open wound of the left big toe, improving. Patient's prognosis is improving. Patient is compliant with current treatment plan. 1. Continue daily dressing change 2. Apply Betadine to the black eschar on the plantar aspect of the big toe 3. Partial weightbearing allowed with postop shoe 4. No surgery is planned for the left hallux 5. Patient will be monitored while in-house Subjective 24 Hr Interval Summary Follow-up open wound left big toe. Patient reports no pain. Patient denies chest pain or shortness of breath. Reports no fever and chills. Patient says the bandages being changed on his left big toe daily. Constitutional: no complaints Pain Control: well controlled Exam/Review of Systems Vital Signs Vitals Vital Signs Date Time Temp Pulse Resp B/P Pulse Ox O2 Delivery O2 Flow Rate FiO2 12/30/16 12:50 79 12/30/16 11:47 98.5 20 125/63 98 12/30/16 05:13 30 12/29/16 19:59 3.0 12/29/16 13:46 Nasal Cannula Intake and Output 12/29/16 12/29/16 12/30/16 15:00 23:00 07:00 Intake Total 700 ml Output Total 300 ml Balance 700 ml -300 ml Exam Free Text/Dictation GENERAL: Patient is in no acute distress laying supine in bed receiving dialysis GAIT: Not applicable VASCULAR: Pedal pulses are weakly palpable bilaterally. There is mild edema noted bilateral lower extremity. Normal temperature gradient noted bilaterally. Capillary filling time is delayed on all toes. No varicose veins noted in the lower extremity. NEUROLOGICAL: Protective sensation is diminished to sharp, dull, vibratory and temperature stimuli bilaterally. Deep tendon reflexes are normal bilateral. Negative Tinel sign on examination of bilateral lower extremity SKIN: Skin is dry. Multiple dry hyperkeratotic lesions noted on both feet. Black eschar present plantar left hallux; stable with no surrounding erythema and no drainage of pus. No erythema noted TOENAILS: Toenails appear dystrophic and discolored with subungual debris bilateral feet MUSCULOSKELETAL: Non tender to exam. No gross deformity noted on examination. Muscle power is 5/5 bilaterally. Foot type is rectus Results Result Diagram: 12/30/16 0630 12/30/16 0630 YEIMI LIZARRAGA DPM December 30, 2016 13:05
--- NOTE | 2016-12-30 16:38 | CONS ---
Date/Time of Note Date/Time of Note DATE: 12/30/16 TIME: 16:35 Assessment/Plan Assessment/Plan Additional Assessment/Plan 1. Oliguric to Anuric Acute kidney injury 2/2 ATN- started on HD on 12/09/16 for acute fluid overload and Pulmonary edema 2. acute resp failure intubated on ventilator -now extubated on 12/10/2016- then again reintubated on 12/13/2016- now self extubated on 12/18/16 3. Moderate to large right pleural effusion s/p Right thoracentesis 900 cc drained on 12/16/16 2. Left foot diabetic ulcer/cellulitis currently on IV antibiotics, Zosyn and vancomycin. 3. History of diabetes mellitus, insulin-dependent with lower extremity neuropathy. 4. History of hypertension. 5. History of aortic stenosis with diastolic dysfunction with ejection fraction 60% on echocardiogram. PLAN: s/p right thoracentesis 900 cc drained on 12/16/16 during this admission S/p lexiscan showed non reversible perfusion defect with EF39% s/p Permacath placement, plan for HD today, right groin abhay has been removed HD placement done at [facility] - done- pt gets HD on , , and ady will continue to follow up will continue HD on TTS schedule while being in hospital Consultation Date/Type/Reason Admit Date/Time Dec 02, 2016 at 21:01 Initial Consult Date Type of Consultation: NEPHROLOGY Referring Provider: VIET PARKER MD 24 HR Interval Summary Free Text/Dictation c/o foot pain, BP stable, plan for HD today Exam/Review of Systems Vital Signs Vitals Vital Signs Date Time Temp Pulse Resp B/P Pulse Ox O2 Delivery O2 Flow Rate FiO2 12/30/16 16:31 79 12/30/16 16:21 98.1 20 124/57 100 12/30/16 05:13 30 12/29/16 19:59 3.0 12/29/16 13:46 Nasal Cannula Intake and Output 12/29/16 12/29/16 12/30/16 14:59 22:59 06:59 Intake Total 700 ml Output Total 300 ml Balance 700 ml -300 ml Exam Constitutional: alert Neck: supple Respiratory: crackles/rales Cardiovascular: nl pulses, regular rate and rhythm Gastrointestinal: non-tender, soft Musculoskeletal: nl extremities to inspection Extremities: No edema Neurological: [employer] II-XII intact, nl mental status, nl speech Skin: rash or lesions (L 1st toe: plantar aspect has eschar, dry non-TTP) Results Result Diagram: 12/30/16 0630 12/30/16 0630 Results 24 hrs Laboratory Tests Test 12/29/16 17:01 12/29/16 18:46 12/29/16 20:31 12/30/16 02:10 Bedside Glucose 164 158 132 Blood Gas Specimen Source Blood arterial Arterial Blood Date Drawn 12/29/2016 7:00:23 PM Arterial Blood pH (Temp corrected) 7.447 Arterial Blood pCO2 (Temp correct) 36.7 Arterial Blood pO2 (Temp corrected) 134.3 H Arterial Blood HCO3 24.8 Arterial Blood Base Excess 0.8 Arterial Blood Oxygen Saturation 98.5 H Derek Test ACCEPTAB Arterial Blood Gas Puncture Site Left Radial Arterial Blood Carboxyhemoglobin 0.3 Arterial Blood Methemoglobin 0.3 Blood Gas A-a O2 Differential 36.5 H Oxyhemoglobin Percent 97.9 Total Hemoglobin 9.6 L Blood Gas Temperature 37.0 Blood Gas Respiration Rate 20.0 Blood Gas Actual Respiration Rate 25 Blood Gas Modality MASK - BIPAP FiO2 30.0 Blood Gas Pressure Support 12 Blood Gas IPAP/EPAP Ratio 20/8 Blood Gas Notified Whom MA Blood Gas Notified Time 12/29/2016 7:14:08 PM Test 12/30/16 06:30 12/30/16 07:42 12/30/16 08:00 12/30/16 08:33 White Blood Count 7.5 Red Blood Count 2.75 L Hemoglobin 8.5 L Hematocrit 27.0 L Mean Corpuscular Volume 98.2 Mean Corpuscular Hemoglobin 30.9 Mean Corpuscular Hemoglobin Concent 31.5 L Red Cell Distribution Width 14.1 Platelet Count 134 L Mean Platelet Volume 10.2 Neutrophils % 77.2 H Lymphocytes % 10.0 L Monocytes % 10.5 Eosinophils % 1.3 Basophils % 0.5 Nucleated Red Blood Cells % 0.0 Neutrophils # 5.8 Lymphocytes # 0.8 Monocytes # 0.8 Eosinophils # 0.1 Basophils # 0.0 Nucleated Red Blood Cells # 0.0 Sodium Level 141 Potassium Level 3.5 Chloride Level 100 Carbon Dioxide Level 25 Anion Gap 20 H Blood Urea Nitrogen 43 H Creatinine 6.61 H Glucose Level 54 #L Calcium Level 8.4 Bedside Glucose 61 L 63 L 95 Test 12/30/16 11:30 Bedside Glucose 149 Medications Medications Current Medications Ondansetron HCl (Zofran Inj) 4 mg Q6H PRN IV NAUSEA AND/OR VOMITING Last administered on 12/13/16 01:13; Admin Dose 4 MG; Start 12/02/16 at 22:30 Miscellaneous Information 1 ea NOTE XX ; Start 12/02/16 at 23:00 Glucose (Glutose) 15 gm Q15M PRN PO DECREASED GLUCOSE; Start 12/02/16 at 23:00 Glucose (Glutose) 22.5 gm Q15M PRN PO DECREASED GLUCOSE; Start 12/02/16 at 23: 00 Dextrose (D50w Syringe) 25 ml Q15M PRN IV DECREASED GLUCOSE Last administered on 12/10/16 05:52; Admin Dose 25 ML; Start 12/02/16 at 23:00 Dextrose (D50w Syringe) 50 ml Q15M PRN IV DECREASED GLUCOSE; Start 12/02/16 at 23:00 Glucagon (Glucagen) 1 mg Q15M PRN IM DECREASED GLUCOSE; Start 12/02/16 at 23:00 Glucose (Glutose) 15 gm Q15M PRN BUCCAL DECREASED GLUCOSE; Start 12/02/16 at 23 :00 Gabapentin (Neurontin) 800 mg TID PO Last administered on 12/08/16 20:33; Admin Dose 800 MG; Start 12/03/16 at 09:00; Status Future Hold Meclizine HCl (Antivert) 25 mg TID PRN PO dizziness Last administered on 09:37; Admin Dose 25 MG; Start 12/02/16 at 23:00 Terazosin HCl (Hytrin) 5 mg HS PO Last administered on 12/07/16 20:28; Admin Dose 5 MG; Start 12/03/16 at 21:00; Status Future Hold Acetaminophen/ Hydrocodone Bitart ([place] (5/325)) 1 tab Q6H PRN PO PAIN LEVEL 4 -7 Last administered on 12/23/16 22:14; Admin Dose 1 TAB; Start 12/02/16 at 23: 30 Acetaminophen (Tylenol Tab) 650 mg Q6H PRN PO PAIN AND OR ELEVATED TEMP Last administered on 12/18/16 10:44; Admin Dose 650 MG; Start 12/02/16 at 23:30 Docusate Sodium (Colace) 100 mg BID PO Last administered on 12/08/16 20:32; Admin Dose 100 MG; Start 12/03/16 at 09:00; Status Future Hold Zolpidem Tartrate (Ambien) 5 mg HS PRN PO INSOMNIA Last administered on 00:45; Admin Dose 5 MG; Start 12/02/16 at 23:30 Benazepril HCl (Lotensin) 10 mg DAILY PO Last administered on 12/07/16 08:26; Admin Dose 10 MG; Start 12/04/16 at 09:00; Status Future Hold Collagenase (Santyl) 1 applic DAILY TOP Last administered on 12/30/16 08:31; Admin Dose 1 APPLIC; Start 12/07/16 at 16:00 Lorazepam (Ativan) 2 mg Q2 PRN IV AGITATION/ANXIETY Last administered on 13:45; Admin Dose 2 MG; Start 12/09/16 at 09:30 Morphine Sulfate (morphine) 2 mg Q2H PRN IV PAIN Last administered on 12/20/16 03:22; Admin Dose 2 MG; Start 12/09/16 at 09:30 Acetaminophen 650 mg 650 mg Q6H PRN MD ELEVATED TEMPERATURE Last administered on 12/09/16 17:53; Admin Dose 650 MG; Start 12/09/16 at 17:00 Piperacillin Sod/ Tazobactam Sod (Zosyn 2.25gm/ 50ml (Pmx)) 50 ml @ 100 mls/hr Q12 IVPB Last administered on 12/30/16 08:32; Admin Dose 100 MLS/HR; Start at 21:00 Metoprolol Tartrate (Lopressor) 5 mg Q4H PRN IV HR>100 Last administered on 22:23; Admin Dose 5 MG; Start 12/09/16 at 17:48 Hydralazine HCl (Apresoline) 10 mg Q6H PRN IV SBP>150mm hg Last administered on 12/19/16 08:50; Admin Dose 10 MG; Start 12/11/16 at 10:30 Morphine Sulfate (morphine) 2 mg Q2H PRN IV PAIN LEVEL 4-7; Start 12/13/16 at 10 :00 Metoprolol Tartrate (Lopressor) 12.5 mg BID PO Last administered on 12/30/16 08:34; Admin Dose 12.5 MG; Start 12/16/16 at 21:00 Pantoprazole (Protonix Tab) 40 mg DAILY@06 PO Last administered on 12/30/16 06 :02; Admin Dose 40 MG; Start 12/23/16 at 06:00 Aspirin (Ecotrin) 325 mg DAILY PO Last administered on 12/30/16 08:36; Admin Dose 325 MG; Start 12/24/16 at 09:00 Insulin Glargine (Lantus) 22 unit DAILY@20 SC Last administered on 12/29/16 20 :32; Admin Dose 22 UNIT; Start 12/25/16 at 20:00 Heparin Sodium (Porcine) (Heparin (5000 Units/0.5 ml)) 5,000 unit BID SC Last administered on 12/30/16 08:28; Admin Dose 5,000 UNIT; Start 12/27/16 at 21:00 Diagnostic Test (Pha) (Accu-Chek) 1 ea 02 XX Last administered on 12/30/16 02: 12; Admin Dose 1 EA; Start 12/30/16 at 02:00 TASHIA MCGARRY MD December 30, 2016 16:37
--- NOTE | 2016-12-30 16:40 | PN ---
DATE: 12/30/2016 SUBJECTIVE: The patient had gross hematuria after putting out his Molina catheter with the balloon i nflated last week; however, right now the patient is being dialyzed and whenever he did urinate, the report states that the urine is clear and the patient is comfortable. OBJECTIVE: VITAL SIGNS: His temperature is 98.5, blood pressure 125/63, pulse is 79, respirations 18. ABDOMEN: Soft. There is no tenderness. The patient is, again, being dialyzed. GENITALIA: External genitalia are normal. There is no bleeding at the present. From the dialysis t hey are going to remove about 2.5 liters of water. LABORATORY DATA: His CBC shows a white count of 7.5, hemoglobin 8.5, hematocrit 27.0. The BUN is 43 , creatinine 6.61. Sodium 141, potassium 3.5, chloride 100, CO2 25. From a urological standpoint, the patient's hematuria has subsided and he is urinating clear urine. RECOMMENDATION: Just do not insert the Molina catheter and just observe him. Dictated By: JOE KUMAR/MICHELLE Conf#: [id number] DID#: [id number]
--- NOTE | 2016-12-30 16:44 | PN ---
Date/Time of Note Date/Time of Note DATE: 12/30/16 TIME: 16:42 Assessment/Plan VTE Prophylaxis VTE Prophylaxis Intervention: other Lines/Catheters IV C[facility]ter Type (from [facility] Saline Lock Urinary Cath still in place: No Assessment/Plan Assessment/Plan - Acute respiratory failure secondary to pulmonary edema, resolved. - Dr. Alvarez is following from pulmonology standpoint. - Bilateral pleural effusion, this post right sided thoracentesis with removal of 900 cc of fluid. - Acute renal failure, Dr. Remy is following in nephrology consultation. Continue hemodialysis per nephrology. Pending permacath placement by vascular surgery. - Acute to subacute right occipital lobe ischemic infarct per CT, Dr Morris is following in neurology consultation. - Paroxysmal atrial fibrillation and positive troponin. Dr. Cobian is following and cardiology consultation. Status post Lexiscan on 12/24. - Fungemia, om Caspofungin. Dr. Pascual is following in infection disease consultation. - Diabetic foot ulcer of the left foot, Dr Lin is following in podiatry consultation. - Cellulitis of left foot, 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 and left fourth proximal phalanx per bone scan. Continue antibiotics per ID. - Aortic stenosis - Diastolic dysfunction congestive heart failure with preserved ejection fraction of 60%. - DM, Hgb A1c is 8.7, continue Lantus and pre-meal NovoLog and NovoLog per sliding scale. -Traumatic hematuria, resolved. Dr. Grey urology consult is appreciated. Await for final recommendation on antibiotics for osteomyelitis, DC planning Further recommendations based on clinical course. Total critical care time spent is 30 mins.Plan of care discussed with Dr. Heredia/staff Patient's complains of shortness of breath, continue breathing treatments, will check chest x-ray, patient status post hemodialysis yesterday. Subjective 24 Hr Interval Summary Free Text/Dictation nad, family - son/ at bed side- all Qs answered. Possible discharge home today with home health services. dw staff- no new issues reported.Son will get training for BIPAP use for his father. But son is not ready to take his fathers home , would like his father to stay another night at hospital , mounika Heredia/ staff. Patient will be discharged on Levaquin, Flagyl as per ID. Constitutional: requiring O2 Eyes: no complaints ENT: no complaints Respiratory: no complaints Cardiovascular: no complaints Gastrointestinal: no complaints Genitourinary: no complaints Musculoskeletal: bone/joint pain Neurologic: no complaints Endocrine: no complaints Lymphatic: no complaints Exam/Review of Systems Vital Signs Vitals Vital Signs Date Time Temp Pulse Resp B/P Pulse Ox O2 Delivery O2 Flow Rate FiO2 12/30/16 16:31 79 12/30/16 16:21 98.1 20 124/57 100 12/30/16 05:13 30 12/29/16 19:59 3.0 12/29/16 13:46 Nasal Cannula Intake and Output 12/29/16 12/29/16 12/30/16 15:00 23:00 07:00 Intake Total 700 ml Output Total 300 ml Balance 700 ml -300 ml Exam Constitutional: alert, well developed Psych: nl mood/affect Eyes: nl conjunctiva ENMT: nl external ears & nose Respiratory: clear to auscultation Cardiovascular: nl pulses Gastrointestinal: non-tender, soft Musculoskeletal: other Extremities: normal pulses Neurological: confused, nl speech, other Skin: other Lymph: nontender Results Result Diagram: 12/30/16 0630 12/30/16 0630 Results 24 hrs Laboratory Tests Test 12/29/16 17:01 12/29/16 18:46 12/29/16 20:31 12/30/16 02:10 Bedside Glucose 164 158 132 Blood Gas Specimen Source Blood arterial Arterial Blood Date Drawn 12/29/2016 7:00:23 PM Arterial Blood pH (Temp corrected) 7.447 Arterial Blood pCO2 (Temp correct) 36.7 Arterial Blood pO2 (Temp corrected) 134.3 H Arterial Blood HCO3 24.8 Arterial Blood Base Excess 0.8 Arterial Blood Oxygen Saturation 98.5 H Derek Test ACCEPTAB Arterial Blood Gas Puncture Site Left Radial Arterial Blood Carboxyhemoglobin 0.3 Arterial Blood Methemoglobin 0.3 Blood Gas A-a O2 Differential 36.5 H Oxyhemoglobin Percent 97.9 Total Hemoglobin 9.6 L Blood Gas Temperature 37.0 Blood Gas Respiration Rate 20.0 Blood Gas Actual Respiration Rate 25 Blood Gas Modality MASK - BIPAP FiO2 30.0 Blood Gas Pressure Support 12 Blood Gas IPAP/EPAP Ratio 20/8 Blood Gas Notified Whom MA Blood Gas Notified Time 12/29/2016 7:14:08 PM Test 12/30/16 06:30 12/30/16 07:42 12/30/16 08:00 12/30/16 08:33 White Blood Count 7.5 Red Blood Count 2.75 L Hemoglobin 8.5 L Hematocrit 27.0 L Mean Corpuscular Volume 98.2 Mean Corpuscular Hemoglobin 30.9 Mean Corpuscular Hemoglobin Concent 31.5 L Red Cell Distribution Width 14.1 Platelet Count 134 L Mean Platelet Volume 10.2 Neutrophils % 77.2 H Lymphocytes % 10.0 L Monocytes % 10.5 Eosinophils % 1.3 Basophils % 0.5 Nucleated Red Blood Cells % 0.0 Neutrophils # 5.8 Lymphocytes # 0.8 Monocytes # 0.8 Eosinophils # 0.1 Basophils # 0.0 Nucleated Red Blood Cells # 0.0 Sodium Level 141 Potassium Level 3.5 Chloride Level 100 Carbon Dioxide Level 25 Anion Gap 20 H Blood Urea Nitrogen 43 H Creatinine 6.61 H Glucose Level 54 #L Calcium Level 8.4 Bedside Glucose 61 L 63 L 95 Test 12/30/16 11:30 Bedside Glucose 149 Medications Medications Current Medications Ondansetron HCl (Zofran Inj) 4 mg Q6H PRN IV NAUSEA AND/OR VOMITING Last administered on 12/13/16 01:13; Admin Dose 4 MG; Start 12/02/16 at 22:30 Miscellaneous Information 1 ea NOTE XX ; Start 12/02/16 at 23:00 Glucose (Glutose) 15 gm Q15M PRN PO DECREASED GLUCOSE; Start 12/02/16 at 23:00 Glucose (Glutose) 22.5 gm Q15M PRN PO DECREASED GLUCOSE; Start 12/02/16 at 23: 00 Dextrose (D50w Syringe) 25 ml Q15M PRN IV DECREASED GLUCOSE Last administered on 12/10/16 05:52; Admin Dose 25 ML; Start 12/02/16 at 23:00 Dextrose (D50w Syringe) 50 ml Q15M PRN IV DECREASED GLUCOSE; Start 12/02/16 at 23:00 Glucagon (Glucagen) 1 mg Q15M PRN IM DECREASED GLUCOSE; Start 12/02/16 at 23:00 Glucose (Glutose) 15 gm Q15M PRN BUCCAL DECREASED GLUCOSE; Start 12/02/16 at 23 :00 Gabapentin (Neurontin) 800 mg TID PO Last administered on 12/08/16 20:33; Admin Dose 800 MG; Start 12/03/16 at 09:00; Status Future Hold Meclizine HCl (Antivert) 25 mg TID PRN PO dizziness Last administered on 09:37; Admin Dose 25 MG; Start 12/02/16 at 23:00 Terazosin HCl (Hytrin) 5 mg HS PO Last administered on 12/07/16 20:28; Admin Dose 5 MG; Start 12/03/16 at 21:00; Status Future Hold Acetaminophen/ Hydrocodone Bitart ([place] (5/325)) 1 tab Q6H PRN PO PAIN LEVEL 4 -7 Last administered on 12/23/16 22:14; Admin Dose 1 TAB; Start 12/02/16 at 23: 30 Acetaminophen (Tylenol Tab) 650 mg Q6H PRN PO PAIN AND OR ELEVATED TEMP Last administered on 12/18/16 10:44; Admin Dose 650 MG; Start 12/02/16 at 23:30 Docusate Sodium (Colace) 100 mg BID PO Last administered on 12/08/16 20:32; Admin Dose 100 MG; Start 12/03/16 at 09:00; Status Future Hold Zolpidem Tartrate (Ambien) 5 mg HS PRN PO INSOMNIA Last administered on 00:45; Admin Dose 5 MG; Start 12/02/16 at 23:30 Benazepril HCl (Lotensin) 10 mg DAILY PO Last administered on 12/07/16 08:26; Admin Dose 10 MG; Start 12/04/16 at 09:00; Status Future Hold Collagenase (Santyl) 1 applic DAILY TOP Last administered on 12/30/16 08:31; Admin Dose 1 APPLIC; Start 12/07/16 at 16:00 Lorazepam (Ativan) 2 mg Q2 PRN IV AGITATION/ANXIETY Last administered on 13:45; Admin Dose 2 MG; Start 12/09/16 at 09:30 Morphine Sulfate (morphine) 2 mg Q2H PRN IV PAIN Last administered on 12/20/16 03:22; Admin Dose 2 MG; Start 12/09/16 at 09:30 Acetaminophen 650 mg 650 mg Q6H PRN NE ELEVATED TEMPERATURE Last administered on 12/09/16 17:53; Admin Dose 650 MG; Start 12/09/16 at 17:00 Piperacillin Sod/ Tazobactam Sod (Zosyn 2.25gm/ 50ml (Pmx)) 50 ml @ 100 mls/hr Q12 IVPB Last administered on 12/30/16 08:32; Admin Dose 100 MLS/HR; Start at 21:00 Metoprolol Tartrate (Lopressor) 5 mg Q4H PRN IV HR>100 Last administered on 22:23; Admin Dose 5 MG; Start 12/09/16 at 17:48 Hydralazine HCl (Apresoline) 10 mg Q6H PRN IV SBP>150mm hg Last administered on 12/19/16 08:50; Admin Dose 10 MG; Start 12/11/16 at 10:30 Morphine Sulfate (morphine) 2 mg Q2H PRN IV PAIN LEVEL 4-7; Start 12/13/16 at 10 :00 Metoprolol Tartrate (Lopressor) 12.5 mg BID PO Last administered on 12/30/16 08:34; Admin Dose 12.5 MG; Start 12/16/16 at 21:00 Pantoprazole (Protonix Tab) 40 mg DAILY@06 PO Last administered on 12/30/16 06 :02; Admin Dose 40 MG; Start 12/23/16 at 06:00 Aspirin (Ecotrin) 325 mg DAILY PO Last administered on 12/30/16 08:36; Admin Dose 325 MG; Start 12/24/16 at 09:00 Insulin Glargine (Lantus) 22 unit DAILY@20 SC Last administered on 12/29/16 20 :32; Admin Dose 22 UNIT; Start 12/25/16 at 20:00 Heparin Sodium (Porcine) (Heparin (5000 Units/0.5 ml)) 5,000 unit BID SC Last administered on 12/30/16 08:28; Admin Dose 5,000 UNIT; Start 12/27/16 at 21:00 Diagnostic Test (Pha) (Accu-Chek) 1 ea 02 XX Last administered on 12/30/16 02: 12; Admin Dose 1 EA; Start 12/30/16 at 02:00 YULIANA SIMMONS December 30, 2016 16:44
--- NOTE | 2016-12-30 17:33 | PDOCDIS ---
Discharge Instructions CONDITION Patient Condition: Stable HOME CARE INSTRUCTIONS: Special Diet: carb controlled 2 gm na ACTIVITY: Activity Restrictions: Slowly Increase Activity Rest between Activity Avoid heavy lifting Avoid Heavy Housework Weight Bearing Bathing Restrictions: Sponge Bath FOLLOW UP/APPOINTMENTS Appointments FU with PMD X1 WEEK FU with television equipment operator Ca[facility] 911 OR go to nearest hospital if sypmtoms get worse. Ck pearson/staff/patient YULIANA SIMMONS December 30, 2016 17:33
--- NOTE | 2016-12-30 18:28 | CONS ---
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 Blood cultures from HD catheter on 12/13/2016 are negative to date. 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 superficial swab grew inna only - right pleural effusion s/p thoracentesis with .9L removed on 12/16/2016; (Note: there is no pleural fluid cx since orders were placed after Right thoracentesis , and Left thoracentesis was not performed on 12/17/16 d/t insufficient fluid) - funguria - ARANZA, on HD from 12/09/2016 - A fib; now in SR - troponin+ - small nonreversible perfusion abnormality in the inferoapical and inferior carver; EF 36% per Lexiscan 12/24/2016 - severe , EF 40-45% per TTE 12/17/16 - DM - Hgb A1c 8.7% - HTN associated with DM - Hypoxia requiring Bipap ?fluid overload recommendations: - continue renally dosed pip/tazo (12/03/2016) empirically for diabetic foot infection while in hospital; d/c on po Levaquin/Flagyl dotty complete course - ultimately, Pt needs 6 weeks of antibiotics to treat 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 and left fourth proximal phalanx: 12/03/2016 through 01/15/2017 management d/w Pt, his , DECK HAND and RN Problems: Consultation Date/Type/Reason Admit Date/Time Dec 02, 2016 at 21:01 Type of Consultation: id Referring Provider: VIET PARKER MD 24 HR Interval Summary Free Text/Dictation planning for d/c Exam/Review of Systems Vital Signs Vitals Vital Signs Date Time Temp Pulse Resp B/P Pulse Ox O2 Delivery O2 Flow Rate FiO2 12/30/16 17:28 78 99 30 12/30/16 16:21 98.1 20 124/57 12/29/16 19:59 3.0 12/29/16 13:46 Nasal Cannula Intake and Output 12/29/16 12/29/16 12/30/16 15:00 23:00 07:00 Intake Total 700 ml Output Total 300 ml Balance 700 ml -300 ml Exam Constitutional: alert Psych: nl mood/affect, no complaints Head: atraumatic, normocephalic ENMT: nl external ears & nose, nl lips & teeth, nl nasal mucosa & septum Respiratory: clear to auscultation, normal air movement Cardiovascular: nl pulses, regular rate and rhythm Gastrointestinal: nl liver, spleen, non-tender, soft Results Result Diagram: 12/30/16 0630 12/30/16 0630 Results 24 hrs Laboratory Tests Test 12/29/16 18:46 12/29/16 20:31 12/30/16 02:10 12/30/16 06:30 Blood Gas Specimen Source Blood arterial Arterial Blood Date Drawn 12/29/2016 7:00:23 PM Arterial Blood pH (Temp corrected) 7.447 Arterial Blood pCO2 (Temp correct) 36.7 Arterial Blood pO2 (Temp corrected) 134.3 H Arterial Blood HCO3 24.8 Arterial Blood Base Excess 0.8 Arterial Blood Oxygen Saturation 98.5 H Derek Test ACCEPTAB Arterial Blood Gas Puncture Site Left Radial Arterial Blood Carboxyhemoglobin 0.3 Arterial Blood Methemoglobin 0.3 Blood Gas A-a O2 Differential 36.5 H Oxyhemoglobin Percent 97.9 Total Hemoglobin 9.6 L Blood Gas Temperature 37.0 Blood Gas Respiration Rate 20.0 Blood Gas Actual Respiration Rate 25 Blood Gas Modality MASK - BIPAP FiO2 30.0 Blood Gas Pressure Support 12 Blood Gas IPAP/EPAP Ratio 20/8 Blood Gas Notified Whom [place] Blood Gas Notified Time 12/29/2016 7:14:08 PM Bedside Glucose 158 132 White Blood Count 7.5 Red Blood Count 2.75 L Hemoglobin 8.5 L Hematocrit 27.0 L Mean Corpuscular Volume 98.2 Mean Corpuscular Hemoglobin 30.9 Mean Corpuscular Hemoglobin Concent 31.5 L Red Cell Distribution Width 14.1 Platelet Count 134 L Mean Platelet Volume 10.2 Neutrophils % 77.2 H Lymphocytes % 10.0 L Monocytes % 10.5 Eosinophils % 1.3 Basophils % 0.5 Nucleated Red Blood Cells % 0.0 Neutrophils # 5.8 Lymphocytes # 0.8 Monocytes # 0.8 Eosinophils # 0.1 Basophils # 0.0 Nucleated Red Blood Cells # 0.0 Sodium Level 141 Potassium Level 3.5 Chloride Level 100 Carbon Dioxide Level 25 Anion Gap 20 H Blood Urea Nitrogen 43 H Creatinine 6.61 H Glucose Level 54 #L Calcium Level 8.4 Test 12/30/16 07:42 12/30/16 08:00 12/30/16 08:33 12/30/16 11:30 Bedside Glucose 61 L 63 L 95 149 Test 12/30/16 17:39 Bedside Glucose 177 Medications Medications Current Medications Ondansetron HCl (Zofran Inj) 4 mg Q6H PRN IV NAUSEA AND/OR VOMITING Last administered on 12/13/16 01:13; Admin Dose 4 MG; Start 12/02/16 at 22:30 Miscellaneous Information 1 ea NOTE XX ; Start 12/02/16 at 23:00 Glucose (Glutose) 15 gm Q15M PRN PO DECREASED GLUCOSE; Start 12/02/16 at 23:00 Glucose (Glutose) 22.5 gm Q15M PRN PO DECREASED GLUCOSE; Start 12/02/16 at 23: 00 Dextrose (D50w Syringe) 25 ml Q15M PRN IV DECREASED GLUCOSE Last administered on 12/10/16 05:52; Admin Dose 25 ML; Start 12/02/16 at 23:00 Dextrose (D50w Syringe) 50 ml Q15M PRN IV DECREASED GLUCOSE; Start 12/02/16 at 23:00 Glucagon (Glucagen) 1 mg Q15M PRN IM DECREASED GLUCOSE; Start 12/02/16 at 23:00 Glucose (Glutose) 15 gm Q15M PRN BUCCAL DECREASED GLUCOSE; Start 12/02/16 at 23 :00 Gabapentin (Neurontin) 800 mg TID PO Last administered on 12/08/16 20:33; Admin Dose 800 MG; Start 12/03/16 at 09:00; Status Future Hold Meclizine HCl (Antivert) 25 mg TID PRN PO dizziness Last administered on 09:37; Admin Dose 25 MG; Start 12/02/16 at 23:00 Terazosin HCl (Hytrin) 5 mg HS PO Last administered on 12/07/16 20:28; Admin Dose 5 MG; Start 12/03/16 at 21:00; Status Future Hold Acetaminophen/ Hydrocodone Bitart ([place] (5/325)) 1 tab Q6H PRN PO PAIN LEVEL 4 -7 Last administered on 12/23/16 22:14; Admin Dose 1 TAB; Start 12/02/16 at 23: 30 Acetaminophen (Tylenol Tab) 650 mg Q6H PRN PO PAIN AND OR ELEVATED TEMP Last administered on 12/18/16 10:44; Admin Dose 650 MG; Start 12/02/16 at 23:30 Docusate Sodium (Colace) 100 mg BID PO Last administered on 12/08/16 20:32; Admin Dose 100 MG; Start 12/03/16 at 09:00; Status Future Hold Zolpidem Tartrate (Ambien) 5 mg HS PRN PO INSOMNIA Last administered on 00:45; Admin Dose 5 MG; Start 12/02/16 at 23:30 Benazepril HCl (Lotensin) 10 mg DAILY PO Last administered on 12/07/16 08:26; Admin Dose 10 MG; Start 12/04/16 at 09:00; Status Future Hold Collagenase (Santyl) 1 applic DAILY TOP Last administered on 12/30/16 08:31; Admin Dose 1 APPLIC; Start 12/07/16 at 16:00 Lorazepam (Ativan) 2 mg Q2 PRN IV AGITATION/ANXIETY Last administered on 13:45; Admin Dose 2 MG; Start 12/09/16 at 09:30 Morphine Sulfate (morphine) 2 mg Q2H PRN IV PAIN Last administered on 12/20/16 03:22; Admin Dose 2 MG; Start 12/09/16 at 09:30 Acetaminophen 650 mg 650 mg Q6H PRN CO ELEVATED TEMPERATURE Last administered on 12/09/16 17:53; Admin Dose 650 MG; Start 12/09/16 at 17:00 Piperacillin Sod/ Tazobactam Sod (Zosyn 2.25gm/ 50ml (Pmx)) 50 ml @ 100 mls/hr Q12 IVPB Last administered on 12/30/16 08:32; Admin Dose 100 MLS/HR; Start at 21:00 Metoprolol Tartrate (Lopressor) 5 mg Q4H PRN IV HR>100 Last administered on 22:23; Admin Dose 5 MG; Start 12/09/16 at 17:48 Hydralazine HCl (Apresoline) 10 mg Q6H PRN IV SBP>150mm hg Last administered on 12/19/16 08:50; Admin Dose 10 MG; Start 12/11/16 at 10:30 Morphine Sulfate (morphine) 2 mg Q2H PRN IV PAIN LEVEL 4-7; Start 12/13/16 at 10 :00 Metoprolol Tartrate (Lopressor) 12.5 mg BID PO Last administered on 12/30/16 08:34; Admin Dose 12.5 MG; Start 12/16/16 at 21:00 Pantoprazole (Protonix Tab) 40 mg DAILY@06 PO Last administered on 12/30/16 06 :02; Admin Dose 40 MG; Start 12/23/16 at 06:00 Aspirin (Ecotrin) 325 mg DAILY PO Last administered on 12/30/16 08:36; Admin Dose 325 MG; Start 12/24/16 at 09:00 Insulin Glargine (Lantus) 22 unit DAILY@20 SC Last administered on 12/29/16 20 :32; Admin Dose 22 UNIT; Start 12/25/16 at 20:00 Heparin Sodium (Porcine) (Heparin (5000 Units/0.5 ml)) 5,000 unit BID SC Last administered on 12/30/16 08:28; Admin Dose 5,000 UNIT; Start 12/27/16 at 21:00 Diagnostic Test (Pha) (Accu-Chek) 1 ea 02 XX Last administered on 12/30/16 02: 12; Admin Dose 1 EA; Start 12/30/16 at 02:00 NIKHIL RAM MD December 30, 2016 18:28
[2016-12-30] MEDS ORDERED: HYDR-906 PO (18:37)
[2016-12-30] MEDS ORDERED: LEVO500T72 PO (18:37)
[2016-12-30] MEDS ORDERED: METR500T14 PO (18:37)
--- NOTE | 2016-12-30 20:08 | CONS ---
Date/Time of Note Date/Time of Note DATE: 12/30/16 TIME: 20:05 Assessment/Plan Assessment/Plan Chief Complaint/Hosp Course IMPRESSION: 1. Atrial fibrillation-currently in SR/ST with PAC's 2. Hypotension-resolved off of pat 3. Abnormal electrocardiogram with inferolateral T-wave inversions. 4. Respiratory failure-s/p intubation and remains 5. Nonhealing toe ulceration-vascular following 6. Peripheral arterial disease by arterial ultrasound of the lower extremities this admission. 7. Diabetes mellitus. 8. Fevers. 9. Positive troponin-downtrended 10.Bradycardia-improved/stable 11.-severe by echo 12.Cardiomyopathy-EF 40-45% by echo/36% by stress with no ischemia but positive scar Recc: -Tele -serial ecg -HD for volume removal as necessary/nephrology following -Decrease asa to 81 mg and would start eliquis for PAF now that no further procedures planned -Continue PO amio in attempt to maintain SR -low dose BB as tolerated only following HR closely -LHC/RHC likey when patient creatnine stable or definately to be continue of HD halfway to truly assess degree of and thus will f/u with me as oitpatient -Will hold on afterload reduction given severe and thus fixed afterload at valve orifice Problems: Consultation Date/Type/Reason Admit Date/Time Dec 02, 2016 at 21:01 Initial Consult Date 12/03/16 Type of Consultation: Cardiology Reason for Consultation PAF/cmy/ Referring Provider: VIET PARKER MD Exam/Review of Systems Vital Signs Vitals Vital Signs Date Time Temp Pulse Resp B/P Pulse Ox O2 Delivery O2 Flow Rate FiO2 12/30/16 17:28 78 99 30 12/30/16 16:21 98.1 20 124/57 12/29/16 19:59 3.0 12/29/16 13:46 Nasal Cannula Intake and Output 12/29/16 12/29/16 12/30/16 15:00 23:00 07:00 Intake Total 700 ml Output Total 300 ml Balance 700 ml -300 ml Exam Review of Systems: CONSTITUTIONAL: No fevers, chills. PULMONARY: No sob CARDIOVASCULAR: No chest pain/palpitations GASTROINTESTINAL: No nausea/vomiting. GENITOURINARY: No hematuria/dysuria. MUSCULOSKELETAL: No myagias/arthalgias. PSYCHIATRIC: The patient denies depression. NEUROLOGIC: No weakness Constitutional: alert Psych: no complaints Head: normocephalic ENMT: mucosa pink and moist Neck: jvd, supple Respiratory: diminished breath sounds Cardiovascular: regular rate and rhythm Gastrointestinal: non-tender, soft Musculoskeletal: muscle tone (normal) Extremities: edema (none) Neurological: other (No focal deficits) Results Result Diagram: 12/30/16 0630 12/30/16 0630 Results 24 hrs Laboratory Tests Test 12/29/16 20:31 12/30/16 02:10 12/30/16 06:30 12/30/16 07:42 Bedside Glucose 158 132 61 L White Blood Count 7.5 Red Blood Count 2.75 L Hemoglobin 8.5 L Hematocrit 27.0 L Mean Corpuscular Volume 98.2 Mean Corpuscular Hemoglobin 30.9 Mean Corpuscular Hemoglobin Concent 31.5 L Red Cell Distribution Width 14.1 Platelet Count 134 L Mean Platelet Volume 10.2 Neutrophils % 77.2 H Lymphocytes % 10.0 L Monocytes % 10.5 Eosinophils % 1.3 Basophils % 0.5 Nucleated Red Blood Cells % 0.0 Neutrophils # 5.8 Lymphocytes # 0.8 Monocytes # 0.8 Eosinophils # 0.1 Basophils # 0.0 Nucleated Red Blood Cells # 0.0 Sodium Level 141 Potassium Level 3.5 Chloride Level 100 Carbon Dioxide Level 25 Anion Gap 20 H Blood Urea Nitrogen 43 H Creatinine 6.61 H Glucose Level 54 #L Calcium Level 8.4 Test 12/30/16 08:00 12/30/16 08:33 12/30/16 11:30 12/30/16 17:39 Bedside Glucose 63 L 95 149 177 Medications Medications Current Medications Ondansetron HCl (Zofran Inj) 4 mg Q6H PRN IV NAUSEA AND/OR VOMITING Last administered on 12/13/16 01:13; Admin Dose 4 MG; Start 12/02/16 at 22:30 Miscellaneous Information 1 ea NOTE XX ; Start 12/02/16 at 23:00 Glucose (Glutose) 15 gm Q15M PRN PO DECREASED GLUCOSE; Start 12/02/16 at 23:00 Glucose (Glutose) 22.5 gm Q15M PRN PO DECREASED GLUCOSE; Start 12/02/16 at 23: 00 Dextrose (D50w Syringe) 25 ml Q15M PRN IV DECREASED GLUCOSE Last administered on 12/10/16 05:52; Admin Dose 25 ML; Start 12/02/16 at 23:00 Dextrose (D50w Syringe) 50 ml Q15M PRN IV DECREASED GLUCOSE; Start 12/02/16 at 23:00 Glucagon (Glucagen) 1 mg Q15M PRN IM DECREASED GLUCOSE; Start 12/02/16 at 23:00 Glucose (Glutose) 15 gm Q15M PRN BUCCAL DECREASED GLUCOSE; Start 12/02/16 at 23 :00 Gabapentin (Neurontin) 800 mg TID PO Last administered on 12/08/16 20:33; Admin Dose 800 MG; Start 12/03/16 at 09:00; Status Future Hold Meclizine HCl (Antivert) 25 mg TID PRN PO dizziness Last administered on 09:37; Admin Dose 25 MG; Start 12/02/16 at 23:00 Terazosin HCl (Hytrin) 5 mg HS PO Last administered on 12/07/16 20:28; Admin Dose 5 MG; Start 12/03/16 at 21:00; Status Future Hold Acetaminophen/ Hydrocodone Bitart ([place] (5/325)) 1 tab Q6H PRN PO PAIN LEVEL 4 -7 Last administered on 12/23/16 22:14; Admin Dose 1 TAB; Start 12/02/16 at 23: 30 Acetaminophen (Tylenol Tab) 650 mg Q6H PRN PO PAIN AND OR ELEVATED TEMP Last administered on 12/18/16 10:44; Admin Dose 650 MG; Start 12/02/16 at 23:30 Docusate Sodium (Colace) 100 mg BID PO Last administered on 12/08/16 20:32; Admin Dose 100 MG; Start 12/03/16 at 09:00; Status Future Hold Zolpidem Tartrate (Ambien) 5 mg HS PRN PO INSOMNIA Last administered on 00:45; Admin Dose 5 MG; Start 12/02/16 at 23:30 Benazepril HCl (Lotensin) 10 mg DAILY PO Last administered on 12/07/16 08:26; Admin Dose 10 MG; Start 12/04/16 at 09:00; Status Future Hold Collagenase (Santyl) 1 applic DAILY TOP Last administered on 12/30/16 08:31; Admin Dose 1 APPLIC; Start 12/07/16 at 16:00 Lorazepam (Ativan) 2 mg Q2 PRN IV AGITATION/ANXIETY Last administered on 13:45; Admin Dose 2 MG; Start 12/09/16 at 09:30 Morphine Sulfate (morphine) 2 mg Q2H PRN IV PAIN Last administered on 12/20/16 03:22; Admin Dose 2 MG; Start 12/09/16 at 09:30 Acetaminophen 650 mg 650 mg Q6H PRN [place] ELEVATED TEMPERATURE Last administered on 12/09/16 17:53; Admin Dose 650 MG; Start 12/09/16 at 17:00 Piperacillin Sod/ Tazobactam Sod (Zosyn 2.25gm/ 50ml (Pmx)) 50 ml @ 100 mls/hr Q12 IVPB Last administered on 12/30/16 08:32; Admin Dose 100 MLS/HR; Start at 21:00 Metoprolol Tartrate (Lopressor) 5 mg Q4H PRN IV HR>100 Last administered on 22:23; Admin Dose 5 MG; Start 12/09/16 at 17:48 Hydralazine HCl (Apresoline) 10 mg Q6H PRN IV SBP>150mm hg Last administered on 12/19/16 08:50; Admin Dose 10 MG; Start 12/11/16 at 10:30 Morphine Sulfate (morphine) 2 mg Q2H PRN IV PAIN LEVEL 4-7; Start 12/13/16 at 10 :00 Metoprolol Tartrate (Lopressor) 12.5 mg BID PO Last administered on 12/30/16 08:34; Admin Dose 12.5 MG; Start 12/16/16 at 21:00 Pantoprazole (Protonix Tab) 40 mg DAILY@06 PO Last administered on 12/30/16 06 :02; Admin Dose 40 MG; Start 12/23/16 at 06:00 Aspirin (Ecotrin) 325 mg DAILY PO Last administered on 12/30/16 08:36; Admin Dose 325 MG; Start 12/24/16 at 09:00 Insulin Glargine (Lantus) 22 unit DAILY@20 SC Last administered on 12/29/16 20 :32; Admin Dose 22 UNIT; Start 12/25/16 at 20:00 Heparin Sodium (Porcine) (Heparin (5000 Units/0.5 ml)) 5,000 unit BID SC Last administered on 12/30/16 08:28; Admin Dose 5,000 UNIT; Start 12/27/16 at 21:00 Diagnostic Test (Pha) (Accu-Chek) 1 ea 02 XX Last administered on 12/30/16 02: 12; Admin Dose 1 EA; Start 12/30/16 at 02:00 VICENTE LESLIE December 30, 2016 20:08
[2016-12-30] MEDS: ZOLPIDEM 5 MG TAB PO PRN (20:53)
--- NOTE | 2016-12-30 20:53 | PN ---
DATE: 12/30/2016 ADDENDUM I met with the patient's son. The discharge planning is underway, and the patient needs Bi[facility]AP at [facility] and [facility] during daytime. BiPAP has been just delivered to the patient. I met with respirator y therapist and she is giving instructions to the son. However, the patient's son is not comfortabl e yet in using BiPAP and is using BiPAP at home. He is requesting more training on use of BiPAP so that he can take his father home. I discussed discharge to SNF also with BiPAP; however, he is refu sing. He does not want his father to go to a SNF. Meanwhile, we will request . If he does no t get accepted at [facility], the patient will be discharged home in 1 to 2 days once his son is more co mfortable in managing BiPAP at home. Dictated By: VIET GARCIA/MICHELLE Conf#: [id number] DID#: [id number]
[2016-12-30] MEDS: INSULIN GLARGINE [LANtus] 3 ML PEN SC SCH (20:57)
[2016-12-30] MEDS: APIXABAN 5 MG TABLET PO SCH (20:59)
[2016-12-30] MEDS: LORAZEPAM 2 MG INJ IV PRN (23:22)
[2016-12-31] VITALS (22 sets, daily range): BP systolic 110–176; BP diastolic 57–79; PULSE 70–95; RESP 18–23
--- NOTE | 2016-12-31 00:39 | PN ---
Date/Time of Note Date/Time of Note DATE: 12/31/16 TIME: 00:36 Assessment/Plan Lines/Catheters IV Catheter Type (from [facility]): Saline Lock Mol[place] in Place (from [facility]): No Assessment/Plan Chief Complaint/Hosp Course -Bilateral lower extremity atherosclerosis with left first toe plantar ulcer: It seems the patient has developed a first toe plantar ulcer,and diabetic foot infection which may be related to his fall over a week ago. The bilateral lower extremity noninvasive vascular studies demonstrated some infrapopliteal disease as the patient does not have palpable pedal pulses and has been a long time smoker. -ATN: It seems the patient will need permanent catheter and likely eventually fistula creation -No vascular intervention for now. Will follow the wound progress closely and would recommend an angiogram with possible intervention if poor wound healing arises in the near future. Will follow as outpatient -Optimize vascular status (BP meds, diet, nutrition, exercise, sugar control, antiplatelets, weight loss). -Discussed smoking cessation with the patient and he understands. -Discussed findings, plan and management with the patient with a certified block operator and he understands. -Thank you for allowing us to partake in the care of your patient. Please call with any questions. Problems: Subjective 24 Hr Interval Summary no new vascular changes overnight Exam/Review of Systems Vital Signs Vitals Vital Signs Date Time Temp Pulse Resp B/P Pulse Ox O2 Delivery O2 Flow Rate FiO2 12/31/16 00:25 98.9 80 23 141/70 99 12/30/16 20:44 30 12/30/16 20:32 Nasal Cannula 3.0 Intake and Output 12/30/16 12/30/16 12/31/16 15:00 23:00 07:00 Intake Total 300 ml 1000 ml Output Total 3000 ml 300 ml Balance -2700 ml 700 ml Exam Free Text/Dictation GENERAL: Alert and oriented x3, PULMONARY: Clear to auscultation bilaterally CARDIOVASCULAR: S1, S2 present ABDOMEN: Soft, nontender, nondistended. Bowel sounds positive. EXTREMITIES: Right lower extremity: Palpable femoral pulse, nonpalpable pedal pulse. Motor , sensory intact. Cap refill 3 to 4 seconds. No ulcers identified. Left lower extremity: Palpable femoral pulse, nonpalpable pedal pulse. Motor and sensory intact. Cap refill 3 to 4 seconds. First toe with erythema and edema resolved. Plantar ulcer of 1st metatarsal with callus and erythema stable , No drainage Results Result Diagram: 12/30/1630 12/30/1630 KAROLINE SHOEMAKER MD December 31, 2016 00:39
[2016-12-31] MEDS: ACCU-CHEK XX SCH (02:08)
[2016-12-31] MEDS: LORAZEPAM 2 MG INJ IV PRN ×2 (02:35→23:33)
[2016-12-31] MEDS: PANTOPRAZOLE (EC) 40 MG TAB PO SCH (06:00)
[2016-12-31 07:20] LABS: ADD SCAN DIFF NO
[2016-12-31 07:34] LABS: ABNORMAL IP MESSAGE 1; BASOPHIL # 0.1 10^3/ul (0.0-0.1); BASOPHILS % 0.7 % (0.0-2.0); EOSINOPHILS # 0.1 10^3/ul (0.0-0.5); EOSINOPHILS % 1.2 % (0.0-7.0); HEMATOCRIT 27.3 % (42.0-52.0); HEMOGLOBIN 8.8 g/dl (14.0-18.0); LYMPHOCYTES # 0.6 10^3/ul (0.8-2.9); LYMPHOCYTES % 6.4 % (15.0-51.0); MEAN CORPUSCULAR HEMOGLOBIN 31.8 pg (29.0-33.0); MEAN CORPUSCULAR HGB CONC 32.2 g/dl (32.0-37.0); MEAN CORPUSCULAR VOLUME 98.6 fl (82.0-101.0); MEAN PLATELET VOLUME 10.1 fl (7.4-10.4); MONOCYTES % 11.1 % (0.0-11.0); NEUTROPHIL # 6.9 10^3/ul (1.6-7.5); NEUTROPHILS % 79.9 % (39.0-77.0); PLATELET COUNT 158 10^3/UL (140-415); RED BLOOD COUNT 2.77 10^6/ul (4.70-6.10); WHITE BLOOD COUNT 8.6 10^3/ul (4.8-10.8)
[2016-12-31 07:54] LABS: POTASSIUM 4.1 mmol/L (3.5-5.1)
[2016-12-31 07:56] LABS: CREATININE 4.94 mg/dl (0.61-1.24)
[2016-12-31 07:57] LABS: CALCIUM 8.3 mg/dl (8.4-10.2)
[2016-12-31] MEDS: ALBUTEROL/IPRATROPIUM (NEB) 3 ML AMP HHN SCH ×3 (08:28→19:32)
[2016-12-31] MEDS: INSULIN ASPART [NOVOLOG] 3 ML PEN SC SCH ×7 (09:09→21:21)
[2016-12-31] MEDS: ASPIRIN (EC) 81 MG TAB PO SCH (09:10)
[2016-12-31] MEDS: METOPROLOL 25 MG TAB PO SCH ×2 (09:11→21:23)
[2016-12-31] MEDS: APIXABAN 5 MG TABLET PO SCH ×2 (09:12→21:22)
[2016-12-31] MEDS: AMIODARONE 200 MG TAB PO SCH (09:12)
[2016-12-31] MEDS: PIPER-TAZO 2.25 GM (PMX) 50 ML IVPB SCH ×2 (09:20→22:43)
[2016-12-31] MEDS: COLLAGENASE 30 GM TUBE TOP SCH (09:20)
--- NOTE | 2016-12-31 16:58 | CONS ---
Date/Time of Note Date/Time of Note DATE: 12/31/16 TIME: 16:54 Assessment/Plan Assessment/Plan Chief Complaint/Hosp Course IMPRESSION: 1. Atrial fibrillation-currently in SR/ST with PAC's 2. Hypotension-resolved off of pat 3. Abnormal electrocardiogram with inferolateral T-wave inversions. 4. Respiratory failure-s/p intubation and remains 5. Nonhealing toe ulceration-vascular following 6. Peripheral arterial disease by arterial ultrasound of the lower extremities this admission. 7. Diabetes mellitus. 8. Fevers. 9. Positive troponin-downtrended 10.Bradycardia-improved/stable 11.-severe by echo 12.Cardiomyopathy-EF 40-45% by echo/36% by stress with no ischemia but positive scar Recc: -Tele -serial ecg -HD for volume removal as necessary/nephrology following -Decrease asa to 81 mg and would start eliquis for PAF now that no further procedures planned -Continue PO amio in attempt to maintain SR -low dose BB as tolerated only following HR closely -LHC/RHC likey when patient creatnine stable or definately to be continue of HD skilled nursing to truly assess degree of and thus will f/u with me as oitpatient -Will hold on afterload reduction given severe and thus fixed afterload at valve orifice Problems: Consultation Date/Type/Reason Admit Date/Time Dec 02, 2016 at 21:01 Initial Consult Date 12/03/16 Type of Consultation: Cardiology Reason for Consultation CHF Referring Provider: VIET PARKER MD Exam/Review of Systems Vital Signs Vitals Vital Signs Date Time Temp Pulse Resp B/P Pulse Ox O2 Delivery O2 Flow Rate FiO2 12/31/16 15:38 98.1 84 19 128/60 94 12/31/16 15:30 3 12/30/16 22:00 3.0 12/30/16 20:32 Nasal Cannula Intake and Output 12/30/16 12/30/16 12/31/16 15:00 23:00 07:00 Intake Total 300 ml 1050 ml 500 ml Output Total 3000 ml 300 ml Balance -2700 ml 750 ml 500 ml Exam Review of Systems: CONSTITUTIONAL: No fevers, chills. PULMONARY: No sob CARDIOVASCULAR: No chest pain/palpitations GASTROINTESTINAL: No nausea/vomiting. GENITOURINARY: No hematuria/dysuria. MUSCULOSKELETAL: No myagias/arthalgias. PSYCHIATRIC: The patient denies depression. NEUROLOGIC: No weakness Constitutional: alert, oriented Psych: no complaints Head: normocephalic ENMT: mucosa pink and moist Neck: supple Respiratory: diminished breath sounds Cardiovascular: regular rate and rhythm Gastrointestinal: non-tender, soft Musculoskeletal: muscle tone (normal) Extremities: edema Neurological: other (No focal deficits) Results Result Diagram: 12/31/16 0635 12/31/16 0635 Results 24 hrs Laboratory Tests Test 12/30/16 17:39 12/30/16 20:08 12/31/16 01:47 12/31/16 06:35 Bedside Glucose 177 206 186 White Blood Count 8.6 Red Blood Count 2.77 L Hemoglobin 8.8 L Hematocrit 27.3 L Mean Corpuscular Volume 98.6 Mean Corpuscular Hemoglobin 31.8 Mean Corpuscular Hemoglobin Concent 32.2 Red Cell Distribution Width 14.0 Platelet Count 158 Mean Platelet Volume 10.1 Neutrophils % 79.9 H Lymphocytes % 6.4 L Monocytes % 11.1 H Eosinophils % 1.2 Basophils % 0.7 Nucleated Red Blood Cells % 0.0 Neutrophils # 6.9 Lymphocytes # 0.6 L Monocytes # 1.0 H Eosinophils # 0.1 Basophils # 0.1 Nucleated Red Blood Cells # 0.0 Sodium Level 139 Potassium Level 4.1 Chloride Level 98 Carbon Dioxide Level 26 Anion Gap 19 H Blood Urea Nitrogen 28 #H Creatinine 4.94 #H Glucose Level 174 # Calcium Level 8.3 L Test 12/31/16 08:54 12/31/16 12:31 12/31/16 13:22 Bedside Glucose 156 67 L 90 Medications Medications Current Medications Ondansetron HCl (Zofran Inj) 4 mg Q6H PRN IV NAUSEA AND/OR VOMITING Last administered on 12/13/16 01:13; Admin Dose 4 MG; Start 12/02/16 at 22:30 Miscellaneous Information 1 ea NOTE XX ; Start 12/02/16 at 23:00 Glucose (Glutose) 15 gm Q15M PRN PO DECREASED GLUCOSE; Start 12/02/16 at 23:00 Glucose (Glutose) 22.5 gm Q15M PRN PO DECREASED GLUCOSE; Start 12/02/16 at 23: 00 Dextrose (D50w Syringe) 25 ml Q15M PRN IV DECREASED GLUCOSE Last administered on 12/10/16 05:52; Admin Dose 25 ML; Start 12/02/16 at 23:00 Dextrose (D50w Syringe) 50 ml Q15M PRN IV DECREASED GLUCOSE; Start 12/02/16 at 23:00 Glucagon (Glucagen) 1 mg Q15M PRN IM DECREASED GLUCOSE; Start 12/02/16 at 23:00 Glucose (Glutose) 15 gm Q15M PRN BUCCAL DECREASED GLUCOSE; Start 12/02/16 at 23 :00 Gabapentin (Neurontin) 800 mg TID PO Last administered on 12/08/16 20:33; Admin Dose 800 MG; Start 12/03/16 at 09:00; Status Future Hold Meclizine HCl (Antivert) 25 mg TID PRN PO dizziness Last administered on 09:37; Admin Dose 25 MG; Start 12/02/16 at 23:00 Terazosin HCl (Hytrin) 5 mg HS PO Last administered on 12/07/16 20:28; Admin Dose 5 MG; Start 12/03/16 at 21:00; Status Future Hold Acetaminophen/ Hydrocodone Bitart ([place] (5/325)) 1 tab Q6H PRN PO PAIN LEVEL 4 -7 Last administered on 12/23/16 22:14; Admin Dose 1 TAB; Start 12/02/16 at 23: 30 Acetaminophen (Tylenol Tab) 650 mg Q6H PRN PO PAIN AND OR ELEVATED TEMP Last administered on 12/18/16 10:44; Admin Dose 650 MG; Start 12/02/16 at 23:30 Docusate Sodium (Colace) 100 mg BID PO Last administered on 12/08/16 20:32; Admin Dose 100 MG; Start 12/03/16 at 09:00; Status Future Hold Zolpidem Tartrate (Ambien) 5 mg HS PRN PO INSOMNIA Last administered on 20:53; Admin Dose 5 MG; Start 12/02/16 at 23:30 Benazepril HCl (Lotensin) 10 mg DAILY PO Last administered on 12/07/16 08:26; Admin Dose 10 MG; Start 12/04/16 at 09:00; Status Future Hold Collagenase (Santyl) 1 applic DAILY TOP Last administered on 12/31/16 09:20; Admin Dose 1 APPLIC; Start 12/07/16 at 16:00 Lorazepam (Ativan) 2 mg Q2 PRN IV AGITATION/ANXIETY Last administered on 02:35; Admin Dose 2 MG; Start 12/09/16 at 09:30 Morphine Sulfate (morphine) 2 mg Q2H PRN IV PAIN Last administered on 12/20/16 03:22; Admin Dose 2 MG; Start 12/09/16 at 09:30 Acetaminophen 650 mg 650 mg Q6H PRN [place] ELEVATED TEMPERATURE Last administered on 12/09/16 17:53; Admin Dose 650 MG; Start 12/09/16 at 17:00 Piperacillin Sod/ Tazobactam Sod (Zosyn 2.25gm/ 50ml (Pmx)) 50 ml @ 100 mls/hr Q12 IVPB Last administered on 12/31/16 09:20; Admin Dose 100 MLS/HR; Start at 21:00 Metoprolol Tartrate (Lopressor) 5 mg Q4H PRN IV HR>100 Last administered on 22:23; Admin Dose 5 MG; Start 12/09/16 at 17:48 Hydralazine HCl (Apresoline) 10 mg Q6H PRN IV SBP>150mm hg Last administered on 12/19/16 08:50; Admin Dose 10 MG; Start 12/11/16 at 10:30 Morphine Sulfate (morphine) 2 mg Q2H PRN IV PAIN LEVEL 4-7; Start 12/13/16 at 10 :00 Pantoprazole (Protonix Tab) 40 mg DAILY@06 PO Last administered on 12/30/16 06 :02; Admin Dose 40 MG; Start 12/23/16 at 06:00 Insulin Glargine (Lantus) 22 unit DAILY@20 SC Last administered on 12/30/16 20 :57; Admin Dose 22 UNIT; Start 12/25/16 at 20:00 Diagnostic Test (Pha) (Accu-Chek) 1 ea 02 XX Last administered on 12/31/16 02: 08; Admin Dose 1 EA; Start 12/30/16 at 02:00 Metoprolol Tartrate (Lopressor) 25 mg BID PO Last administered on 12/31/16 09: 11; Admin Dose 25 MG; Start 12/30/16 at 21:00 Aspirin (Halfprin) 81 mg DAILY PO Last administered on 12/31/16 09:10; Admin Dose 81 MG; Start 12/31/16 at 09:00 Apixaban (Eliquis) 2.5 mg BID PO Last administered on 12/31/16 09:12; Admin Dose 2.5 MG; Start 12/30/16 at 21:00 Amiodarone HCl (Cordarone) 200 mg DAILY PO Last administered on 12/31/16 09:12 ; Admin Dose 200 MG; Start 12/31/16 at 09:00 VICENTE LESLIE December 31, 2016 16:58
--- NOTE | 2016-12-31 17:08 | CONS ---
Date/Time of Note Date/Time of Note DATE: 12/31/16 TIME: 17:06 Assessment/Plan Assessment/Plan Additional Assessment/Plan 1. Oliguric to Anuric Acute kidney injury 2/2 ATN- started on HD on 12/09/16 for acute fluid overload and Pulmonary edema 2. acute resp failure intubated on ventilator -now extubated on 12/10/2016- then again reintubated on 12/13/2016- now self extubated on 12/18/16 3. Moderate to large right pleural effusion s/p Right thoracentesis 900 cc drained on 12/16/16 2. Left foot diabetic ulcer/cellulitis currently on IV antibiotics, Zosyn and vancomycin. 3. History of diabetes mellitus, insulin-dependent with lower extremity neuropathy. 4. History of hypertension. 5. History of aortic stenosis with diastolic dysfunction with ejection fraction 60% on echocardiogram. PLAN: s/p right thoracentesis 900 cc drained on 12/16/16 during this admission S/p lexiscan showed non reversible perfusion defect with EF39% s/p Permacath placement, plan for HD tomorrow HD placement done at [facility] - done- pt gets HD on , , and ady will continue to follow up will continue HD on TTS schedule while being in hospital Consultation Date/Type/Reason Admit Date/Time Dec 02, 2016 at 21:01 Initial Consult Date Type of Consultation: NEPHROLOGY Referring Provider: VIET PARKER MD 24 HR Interval Summary Free Text/Dictation S/p HD yesterday, plan for HD tomorrow, currenlyt on BIPAP Exam/Review of Systems Vital Signs Vitals Vital Signs Date Time Temp Pulse Resp B/P Pulse Ox O2 Delivery O2 Flow Rate FiO2 12/31/16 15:38 98.1 84 19 128/60 94 12/31/16 15:30 3 12/30/16 22:00 3.0 12/30/16 20:32 Nasal Cannula Intake and Output 12/30/16 12/30/16 12/31/16 15:00 23:00 07:00 Intake Total 300 ml 1050 ml 500 ml Output Total 3000 ml 300 ml Balance -2700 ml 750 ml 500 ml Exam Constitutional: alert Neck: supple Respiratory: crackles/rales Cardiovascular: nl pulses, regular rate and rhythm Gastrointestinal: non-tender, soft Musculoskeletal: nl extremities to inspection Extremities: No edema Neurological: CERTIFIED GENETIC COUNSELOR II-XII intact, nl mental status, nl speech Skin: rash or lesions (L 1st toe: plantar aspect has eschar, dry non-TTP) Results Result Diagram: 12/31/16 0635 12/31/16 0635 Results 24 hrs Laboratory Tests Test 12/30/16 17:39 12/30/16 20:08 12/31/16 01:47 12/31/16 06:35 Bedside Glucose 177 206 186 White Blood Count 8.6 Red Blood Count 2.77 L Hemoglobin 8.8 L Hematocrit 27.3 L Mean Corpuscular Volume 98.6 Mean Corpuscular Hemoglobin 31.8 Mean Corpuscular Hemoglobin Concent 32.2 Red Cell Distribution Width 14.0 Platelet Count 158 Mean Platelet Volume 10.1 Neutrophils % 79.9 H Lymphocytes % 6.4 L Monocytes % 11.1 H Eosinophils % 1.2 Basophils % 0.7 Nucleated Red Blood Cells % 0.0 Neutrophils # 6.9 Lymphocytes # 0.6 L Monocytes # 1.0 H Eosinophils # 0.1 Basophils # 0.1 Nucleated Red Blood Cells # 0.0 Sodium Level 139 Potassium Level 4.1 Chloride Level 98 Carbon Dioxide Level 26 Anion Gap 19 H Blood Urea Nitrogen 28 #H Creatinine 4.94 #H Glucose Level 174 # Calcium Level 8.3 L Test 12/31/16 08:54 12/31/16 12:31 12/31/16 13:22 Bedside Glucose 156 67 L 90 Medications Medications Current Medications Ondansetron HCl (Zofran Inj) 4 mg Q6H PRN IV NAUSEA AND/OR VOMITING Last administered on 12/13/16 01:13; Admin Dose 4 MG; Start 12/02/16 at 22:30 Miscellaneous Information 1 ea NOTE XX ; Start 12/02/16 at 23:00 Glucose (Glutose) 15 gm Q15M PRN PO DECREASED GLUCOSE; Start 12/02/16 at 23:00 Glucose (Glutose) 22.5 gm Q15M PRN PO DECREASED GLUCOSE; Start 12/02/16 at 23: 00 Dextrose (D50w Syringe) 25 ml Q15M PRN IV DECREASED GLUCOSE Last administered on 12/10/16 05:52; Admin Dose 25 ML; Start 12/02/16 at 23:00 Dextrose (D50w Syringe) 50 ml Q15M PRN IV DECREASED GLUCOSE; Start 12/02/16 at 23:00 Glucagon (Glucagen) 1 mg Q15M PRN IM DECREASED GLUCOSE; Start 12/02/16 at 23:00 Glucose (Glutose) 15 gm Q15M PRN BUCCAL DECREASED GLUCOSE; Start 12/02/16 at 23 :00 Gabapentin (Neurontin) 800 mg TID PO Last administered on 12/08/16 20:33; Admin Dose 800 MG; Start 12/03/16 at 09:00; Status Future Hold Meclizine HCl (Antivert) 25 mg TID PRN PO dizziness Last administered on 09:37; Admin Dose 25 MG; Start 12/02/16 at 23:00 Terazosin HCl (Hytrin) 5 mg HS PO Last administered on 12/07/16 20:28; Admin Dose 5 MG; Start 12/03/16 at 21:00; Status Future Hold Acetaminophen/ Hydrocodone Bitart ([place] (5/325)) 1 tab Q6H PRN PO PAIN LEVEL 4 -7 Last administered on 12/23/16 22:14; Admin Dose 1 TAB; Start 12/02/16 at 23: 30 Acetaminophen (Tylenol Tab) 650 mg Q6H PRN PO PAIN AND OR ELEVATED TEMP Last administered on 12/18/16 10:44; Admin Dose 650 MG; Start 12/02/16 at 23:30 Docusate Sodium (Colace) 100 mg BID PO Last administered on 12/08/16 20:32; Admin Dose 100 MG; Start 12/03/16 at 09:00; Status Future Hold Zolpidem Tartrate (Ambien) 5 mg HS PRN PO INSOMNIA Last administered on 20:53; Admin Dose 5 MG; Start 12/02/16 at 23:30 Benazepril HCl (Lotensin) 10 mg DAILY PO Last administered on 12/07/16 08:26; Admin Dose 10 MG; Start 12/04/16 at 09:00; Status Future Hold Collagenase (Santyl) 1 applic DAILY TOP Last administered on 12/31/16 09:20; Admin Dose 1 APPLIC; Start 12/07/16 at 16:00 Lorazepam (Ativan) 2 mg Q2 PRN IV AGITATION/ANXIETY Last administered on 02:35; Admin Dose 2 MG; Start 12/09/16 at 09:30 Morphine Sulfate (morphine) 2 mg Q2H PRN IV PAIN Last administered on 12/20/16 03:22; Admin Dose 2 MG; Start 12/09/16 at 09:30 Acetaminophen 650 mg 650 mg Q6H PRN [place] ELEVATED TEMPERATURE Last administered on 12/09/16 17:53; Admin Dose 650 MG; Start 12/09/16 at 17:00 Piperacillin Sod/ Tazobactam Sod (Zosyn 2.25gm/ 50ml (Pmx)) 50 ml @ 100 mls/hr Q12 IVPB Last administered on 12/31/16 09:20; Admin Dose 100 MLS/HR; Start at 21:00 Metoprolol Tartrate (Lopressor) 5 mg Q4H PRN IV HR>100 Last administered on 22:23; Admin Dose 5 MG; Start 12/09/16 at 17:48 Hydralazine HCl (Apresoline) 10 mg Q6H PRN IV SBP>150mm hg Last administered on 12/19/16 08:50; Admin Dose 10 MG; Start 12/11/16 at 10:30 Morphine Sulfate (morphine) 2 mg Q2H PRN IV PAIN LEVEL 4-7; Start 12/13/16 at 10 :00 Pantoprazole (Protonix Tab) 40 mg DAILY@06 PO Last administered on 12/30/16 06 :02; Admin Dose 40 MG; Start 12/23/16 at 06:00 Insulin Glargine (Lantus) 22 unit DAILY@20 SC Last administered on 12/30/16 20 :57; Admin Dose 22 UNIT; Start 12/25/16 at 20:00 Diagnostic Test (Pha) (Accu-Chek) 1 ea 02 XX Last administered on 12/31/16 02: 08; Admin Dose 1 EA; Start 12/30/16 at 02:00 Metoprolol Tartrate (Lopressor) 25 mg BID PO Last administered on 12/31/16 09: 11; Admin Dose 25 MG; Start 12/30/16 at 21:00 Aspirin (Halfprin) 81 mg DAILY PO Last administered on 12/31/16 09:10; Admin Dose 81 MG; Start 12/31/16 at 09:00 Apixaban (Eliquis) 2.5 mg BID PO Last administered on 12/31/16 09:12; Admin Dose 2.5 MG; Start 12/30/16 at 21:00 Amiodarone HCl (Cordarone) 200 mg DAILY PO Last administered on 12/31/16 09:12 ; Admin Dose 200 MG; Start 12/31/16 at 09:00 TASHIA MCGARRY MD December 31, 2016 17:08
--- NOTE | 2016-12-31 17:54 | PN ---
Date/Time of Note Date/Time of Note DATE: 12/31/16 TIME: 17:51 Assessment/Plan VTE Prophylaxis VTE Prophylaxis Intervention: SCD's Lines/Catheters IV [facility] [place] [facility] Urinary Cath still in place: No Assessment/Plan Chief Complaint/Hosp Course Assessment/Plan - Acute respiratory failure secondary to pulmonary edema, resolved. Dr. Alvarez is following from pulmonology standpoint. - Bilateral pleural effusion, this post right sided thoracentesis with removal of 900 cc of fluid. - Acute renal failure, Dr. Remy is following in nephrology consultation. Continue hemodialysis per nephrology. Pending permacath placement by vascular surgery. - Acute to subacute right occipital lobe ischemic infarct per CT, Dr Morris is following in neurology consultation. - Paroxysmal atrial fibrillation and positive troponin. Dr. Cobian is following and cardiology consultation. Status post Lexiscan on 12/24. - Fungemia, om Caspofungin. Dr. Pascual is following in infection disease consultation. - Diabetic foot ulcer of the left foot, Dr Lin is following in podiatry consultation. - Cellulitis of left foot, 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 and left fourth proximal phalanx per bone scan. Continue antibiotics per ID. - Aortic stenosis - Diastolic dysfunction congestive heart failure with preserved ejection fraction of 60%. - DM, Hgb A1c is 8.7, continue Lantus and pre-meal NovoLog and NovoLog per sliding scale. -Traumatic hematuria, resolved. Dr. Grey urology consult is appreciated. Pending Dye evaluation Further recommendations based on clinical course. Plan of care discussed with Dr. Heredia. Problems: Subjective 24 Hr Interval Summary Free Text/Dictation Patient's continues on BiPAP, complains of poor appetite Exam/Review of Systems Vital Signs Vitals Vital Signs Date Time Temp Pulse Resp B/P Pulse Ox O2 Delivery O2 Flow Rate FiO2 12/31/16 15:38 98.1 84 19 128/60 94 12/31/16 15:30 3 12/30/16 22:00 3.0 12/30/16 20:32 Nasal Cannula Intake and Output 12/30/16 12/30/16 12/31/16 15:00 23:00 07:00 Intake Total 300 ml 1050 ml 500 ml Output Total 3000 ml 300 ml Balance -2700 ml 750 ml 500 ml Exam Constitutional: awake, alert Psych: no complaints Head: atraumatic, normocephalic Eyes: nl conjunctiva ENMT: nl external ears & nose Neck: non-tender, supple Respiratory: clear to auscultation, normal air movement Cardiovascular: nl pulses, regular rate and rhythm, systolic murmur Gastrointestinal: non-tender, soft Musculoskeletal: nl extremities to inspection Extremities: normal pulses Neurological: alert *3 Skin: nl turgor, left big toe ulcer. R IJ HD cath Results Result Diagram: 12/31/16 0635 12/31/16 0635 Results 24 hrs Laboratory Tests Test 12/30/16 20:08 12/31/16 01:47 12/31/16 06:35 12/31/16 08:54 Bedside Glucose 206 186 156 White Blood Count 8.6 Red Blood Count 2.77 L Hemoglobin 8.8 L Hematocrit 27.3 L Mean Corpuscular Volume 98.6 Mean Corpuscular Hemoglobin 31.8 Mean Corpuscular Hemoglobin Concent 32.2 Red Cell Distribution Width 14.0 Platelet Count 158 Mean Platelet Volume 10.1 Neutrophils % 79.9 H Lymphocytes % 6.4 L Monocytes % 11.1 H Eosinophils % 1.2 Basophils % 0.7 Nucleated Red Blood Cells % 0.0 Neutrophils # 6.9 Lymphocytes # 0.6 L Monocytes # 1.0 H Eosinophils # 0.1 Basophils # 0.1 Nucleated Red Blood Cells # 0.0 Sodium Level 139 Potassium Level 4.1 Chloride Level 98 Carbon Dioxide Level 26 Anion Gap 19 H Blood Urea Nitrogen 28 #H Creatinine 4.94 #H Glucose Level 174 # Calcium Level 8.3 L Test 12/31/16 12:31 12/31/16 13:22 12/31/16 17:32 Bedside Glucose 67 L 90 161 Medications Medications Current Medications Ondansetron HCl (Zofran Inj) 4 mg Q6H PRN IV NAUSEA AND/OR VOMITING Last administered on 12/13/16 01:13; Admin Dose 4 MG; Start 12/02/16 at 22:30 Miscellaneous Information 1 ea NOTE XX ; Start 12/02/16 at 23:00 Glucose (Glutose) 15 gm Q15M PRN PO DECREASED GLUCOSE; Start 12/02/16 at 23:00 Glucose (Glutose) 22.5 gm Q15M PRN PO DECREASED GLUCOSE; Start 12/02/16 at 23: 00 Dextrose (D50w Syringe) 25 ml Q15M PRN IV DECREASED GLUCOSE Last administered on 12/10/16 05:52; Admin Dose 25 ML; Start 12/02/16 at 23:00 Dextrose (D50w Syringe) 50 ml Q15M PRN IV DECREASED GLUCOSE; Start 12/02/16 at 23:00 Glucagon (Glucagen) 1 mg Q15M PRN IM DECREASED GLUCOSE; Start 12/02/16 at 23:00 Glucose (Glutose) 15 gm Q15M PRN BUCCAL DECREASED GLUCOSE; Start 12/02/16 at 23 :00 Gabapentin (Neurontin) 800 mg TID PO Last administered on 12/08/16 20:33; Admin Dose 800 MG; Start 12/03/16 at 09:00; Status Future Hold Meclizine HCl (Antivert) 25 mg TID PRN PO dizziness Last administered on 09:37; Admin Dose 25 MG; Start 12/02/16 at 23:00 Terazosin HCl (Hytrin) 5 mg HS PO Last administered on 12/07/16 20:28; Admin Dose 5 MG; Start 12/03/16 at 21:00; Status Future Hold Acetaminophen/ Hydrocodone Bitart ([place] (5/325)) 1 tab Q6H PRN PO PAIN LEVEL 4 -7 Last administered on 12/23/16 22:14; Admin Dose 1 TAB; Start 12/02/16 at 23: 30 Acetaminophen (Tylenol Tab) 650 mg Q6H PRN PO PAIN AND OR ELEVATED TEMP Last administered on 12/18/16 10:44; Admin Dose 650 MG; Start 12/02/16 at 23:30 Docusate Sodium (Colace) 100 mg BID PO Last administered on 12/08/16 20:32; Admin Dose 100 MG; Start 12/03/16 at 09:00; Status Future Hold Zolpidem Tartrate (Ambien) 5 mg HS PRN PO INSOMNIA Last administered on 20:53; Admin Dose 5 MG; Start 12/02/16 at 23:30 Benazepril HCl (Lotensin) 10 mg DAILY PO Last administered on 12/07/16 08:26; Admin Dose 10 MG; Start 12/04/16 at 09:00; Status Future Hold Collagenase (Santyl) 1 applic DAILY TOP Last administered on 12/31/16 09:20; Admin Dose 1 APPLIC; Start 12/07/16 at 16:00 Lorazepam (Ativan) 2 mg Q2 PRN IV AGITATION/ANXIETY Last administered on 02:35; Admin Dose 2 MG; Start 12/09/16 at 09:30 Morphine Sulfate (morphine) 2 mg Q2H PRN IV PAIN Last administered on 12/20/16 03:22; Admin Dose 2 MG; Start 12/09/16 at 09:30 Acetaminophen 650 mg 650 mg Q6H PRN [place] ELEVATED TEMPERATURE Last administered on 12/09/16 17:53; Admin Dose 650 MG; Start 12/09/16 at 17:00 Piperacillin Sod/ Tazobactam Sod (Zosyn 2.25gm/ 50ml (Pmx)) 50 ml @ 100 mls/hr Q12 IVPB Last administered on 12/31/16 09:20; Admin Dose 100 MLS/HR; Start at 21:00 Metoprolol Tartrate (Lopressor) 5 mg Q4H PRN IV HR>100 Last administered on 22:23; Admin Dose 5 MG; Start 12/09/16 at 17:48 Hydralazine HCl (Apresoline) 10 mg Q6H PRN IV SBP>150mm hg Last administered on 12/19/16 08:50; Admin Dose 10 MG; Start 12/11/16 at 10:30 Morphine Sulfate (morphine) 2 mg Q2H PRN IV PAIN LEVEL 4-7; Start 12/13/16 at 10 :00 Pantoprazole (Protonix Tab) 40 mg DAILY@06 PO Last administered on 12/30/16 06 :02; Admin Dose 40 MG; Start 12/23/16 at 06:00 Insulin Glargine (Lantus) 22 unit DAILY@20 SC Last administered on 12/30/16 20 :57; Admin Dose 22 UNIT; Start 12/25/16 at 20:00 Diagnostic Test (Pha) (Accu-Chek) 1 ea 02 XX Last administered on 12/31/16 02: 08; Admin Dose 1 EA; Start 12/30/16 at 02:00 Metoprolol Tartrate (Lopressor) 25 mg BID PO Last administered on 12/31/16 09: 11; Admin Dose 25 MG; Start 12/30/16 at 21:00 Aspirin (Halfprin) 81 mg DAILY PO Last administered on 12/31/16 09:10; Admin Dose 81 MG; Start 12/31/16 at 09:00 Apixaban (Eliquis) 2.5 mg BID PO Last administered on 12/31/16 09:12; Admin Dose 2.5 MG; Start 12/30/16 at 21:00 Amiodarone HCl (Cordarone) 200 mg DAILY PO Last administered on 12/31/16 09:12 ; Admin Dose 200 MG; Start 12/31/16 at 09:00 KIMBERLY NOYOLA December 31, 2016 17:54
--- NOTE | 2016-12-31 19:09 | CONS ---
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 Blood cultures from HD catheter on 12/13/2016 are negative to date. 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 superficial swab grew inna only - right pleural effusion s/p thoracentesis with .9L removed on 12/16/2016; (Note: there is no pleural fluid cx since orders were placed after Right thoracentesis , and Left thoracentesis was not performed on 12/17/16 d/t insufficient fluid) - funguria - ARANZA, on HD from 12/09/2016 - A fib; now in SR - troponin+ - small nonreversible perfusion abnormality in the inferoapical and inferior carver; EF 36% per Lexiscan 12/24/2016 - severe , EF 40-45% per TTE 12/17/16 - DM - Hgb A1c 8.7% - HTN associated with DM - Episodes of hypercapnic respiratory failure, responding well to BiPAP recommendations: - continue renally dosed pip/tazo (12/03/2016) empirically for diabetic foot infection while in hospital (s/p linezolid); May D/c home on po Levaquin/Flagyl to complete course - ultimately, Pt needs 6 weeks of antibiotics to treat 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 and left fourth proximal phalanx: 12/03/2016 through 01/15/2017 - DC planning in progress; awaiting Hardik vora. management d/w Pt, ALINA Ball and Dr. Wilson Problems: Consultation Date/Type/Reason Admit Date/Time Dec 02, 2016 at 21:01 Initial Consult Date 12/03/16 Type of Consultation: Infectious Disease Referring Provider: VIET PARKER MD 24 HR Interval Summary Free Text/Dictation Pt saturating 97% with O2 at 3L via NC but is insisting that pt be placed on Bipap per d/w nursing staff. Awaiting transfer to [facility]. Pt c/o mild SOB and feeling anxious with raising her voice trying to get nursing staff to contact respiratory therapy. Exam/Review of Systems Vital Signs Vitals Vital Signs Date Time Temp Pulse Resp B/P Pulse Ox O2 Delivery O2 Flow Rate FiO2 12/31/16 15:38 98.1 84 19 128/60 94 12/31/16 15:30 3 12/30/16 22:00 3.0 12/30/16 20:32 Nasal Cannula Intake and Output 12/30/16 12/30/16 12/31/16 15:00 23:00 07:00 Intake Total 300 ml 1050 ml 500 ml Output Total 3000 ml 300 ml Balance -2700 ml 750 ml 500 ml Exam Constitutional: alert, oriented, well developed, using nasal cannula in NAD Psych: starting to get anxious Head: atraumatic, normocephalic Eyes: nl sclera Neck: supple, other (R IJ permacath with no e/o infection) Respiratory: diminished breath sounds No wheezing Cardiovascular: regular rate and rhythm, systolic murmur Gastrointestinal: bowel sounds (present), non-tender, soft, No distended Extremities: other (LUE HL with no e/o infection), No clubbing, No cyanosis Neurological: nl mental status, nl speech (Primarily Romanian speaking) Skin: nl turgor, other (See nurse note and photos in chart for details; stage 2 sacrococcyx ulcer; Left great toe diabetic dry ulcer) Results Result Diagram: 12/31/16 0635 12/31/16 0635 Results 24 hrs Laboratory Tests Test 12/30/16 20:08 12/31/16 01:47 12/31/16 06:35 12/31/16 08:54 Bedside Glucose 206 186 156 White Blood Count 8.6 Red Blood Count 2.77 L Hemoglobin 8.8 L Hematocrit 27.3 L Mean Corpuscular Volume 98.6 Mean Corpuscular Hemoglobin 31.8 Mean Corpuscular Hemoglobin Concent 32.2 Red Cell Distribution Width 14.0 Platelet Count 158 Mean Platelet Volume 10.1 Neutrophils % 79.9 H Lymphocytes % 6.4 L Monocytes % 11.1 H Eosinophils % 1.2 Basophils % 0.7 Nucleated Red Blood Cells % 0.0 Neutrophils # 6.9 Lymphocytes # 0.6 L Monocytes # 1.0 H Eosinophils # 0.1 Basophils # 0.1 Nucleated Red Blood Cells # 0.0 Sodium Level 139 Potassium Level 4.1 Chloride Level 98 Carbon Dioxide Level 26 Anion Gap 19 H Blood Urea Nitrogen 28 #H Creatinine 4.94 #H Glucose Level 174 # Calcium Level 8.3 L Test 12/31/16 12:31 12/31/16 13:22 12/31/16 17:32 Bedside Glucose 67 L 90 161 Medications Medications Current Medications Ondansetron HCl (Zofran Inj) 4 mg Q6H PRN IV NAUSEA AND/OR VOMITING Last administered on 12/13/16 01:13; Admin Dose 4 MG; Start 12/02/16 at 22:30 Miscellaneous Information 1 ea NOTE XX ; Start 12/02/16 at 23:00 Glucose (Glutose) 15 gm Q15M PRN PO DECREASED GLUCOSE; Start 12/02/16 at 23:00 Glucose (Glutose) 22.5 gm Q15M PRN PO DECREASED GLUCOSE; Start 12/02/16 at 23: 00 Dextrose (D50w Syringe) 25 ml Q15M PRN IV DECREASED GLUCOSE Last administered on 12/10/16 05:52; Admin Dose 25 ML; Start 12/02/16 at 23:00 Dextrose (D50w Syringe) 50 ml Q15M PRN IV DECREASED GLUCOSE; Start 12/02/16 at 23:00 Glucagon (Glucagen) 1 mg Q15M PRN IM DECREASED GLUCOSE; Start 12/02/16 at 23:00 Glucose (Glutose) 15 gm Q15M PRN BUCCAL DECREASED GLUCOSE; Start 12/02/16 at 23 :00 Gabapentin (Neurontin) 800 mg TID PO Last administered on 12/08/16 20:33; Admin Dose 800 MG; Start 12/03/16 at 09:00; Status Future Hold Meclizine HCl (Antivert) 25 mg TID PRN PO dizziness Last administered on 09:37; Admin Dose 25 MG; Start 12/02/16 at 23:00 Terazosin HCl (Hytrin) 5 mg HS PO Last administered on 12/07/16 20:28; Admin Dose 5 MG; Start 12/03/16 at 21:00; Status Future Hold Acetaminophen/ Hydrocodone Bitart ([place] (5/325)) 1 tab Q6H PRN PO PAIN LEVEL 4 -7 Last administered on 12/23/16 22:14; Admin Dose 1 TAB; Start 12/02/16 at 23: 30 Acetaminophen (Tylenol Tab) 650 mg Q6H PRN PO PAIN AND [place] ELEVATED TEMP Last administered on 12/18/16 10:44; Admin Dose 650 MG; Start 12/02/16 at 23:30 Docusate Sodium (Colace) 100 mg BID PO Last administered on 12/08/16 20:32; Admin Dose 100 MG; Start 12/03/16 at 09:00; Status Future Hold Zolpidem Tartrate (Ambien) 5 mg HS PRN PO INSOMNIA Last administered on 20:53; Admin Dose 5 MG; Start 12/02/16 at 23:30 Benazepril HCl (Lotensin) 10 mg DAILY PO Last administered on 12/07/16 08:26; Admin Dose 10 MG; Start 12/04/16 at 09:00; Status Future Hold Collagenase (Santyl) 1 applic DAILY TOP Last administered on 12/31/16 09:20; Admin Dose 1 APPLIC; Start 12/07/16 at 16:00 Lorazepam (Ativan) 2 mg Q2 PRN IV AGITATION/ANXIETY Last administered on 02:35; Admin Dose 2 MG; Start 12/09/16 at 09:30 Morphine Sulfate (morphine) 2 mg Q2H PRN IV PAIN Last administered on 12/20/16 03:22; Admin Dose 2 MG; Start 12/09/16 at 09:30 Acetaminophen 650 mg 650 mg Q6H PRN [place] ELEVATED TEMPERATURE Last administered on 12/09/16 17:53; Admin Dose 650 MG; Start 12/09/16 at 17:00 Piperacillin Sod/ Tazobactam Sod (Zosyn 2.25gm/ 50ml (Pmx)) 50 ml @ 100 mls/hr Q12 IVPB Last administered on 12/31/16 09:20; Admin Dose 100 MLS/HR; Start at 21:00 Metoprolol Tartrate (Lopressor) 5 mg Q4H PRN IV HR>100 Last administered on 22:23; Admin Dose 5 MG; Start 12/09/16 at 17:48 Hydralazine HCl (Apresoline) 10 mg Q6H PRN IV SBP>150mm hg Last administered on 12/19/16 08:50; Admin Dose 10 MG; Start 12/11/16 at 10:30 Morphine Sulfate (morphine) 2 mg Q2H PRN IV PAIN LEVEL 4-7; Start 12/13/16 at 10 :00 Pantoprazole (Protonix Tab) 40 mg DAILY@06 PO Last administered on 12/30/16 06 :02; Admin Dose 40 MG; Start 12/23/16 at 06:00 Insulin Glargine (Lantus) 22 unit DAILY@20 SC Last administered on 12/30/16 20 :57; Admin Dose 22 UNIT; Start 12/25/16 at 20:00 Diagnostic Test (Pha) (Accu-Chek) 1 ea 02 XX Last administered on 12/31/16 02: 08; Admin Dose 1 EA; Start 12/30/16 at 02:00 Metoprolol Tartrate (Lopressor) 25 mg BID PO Last administered on 12/31/16 09: 11; Admin Dose 25 MG; Start 12/30/16 at 21:00 Aspirin (Halfprin) 81 mg DAILY PO Last administered on 12/31/16 09:10; Admin Dose 81 MG; Start 12/31/16 at 09:00 Apixaban (Eliquis) 2.5 mg BID PO Last administered on 12/31/16 09:12; Admin Dose 2.5 MG; Start 12/30/16 at 21:00 Amiodarone HCl (Cordarone) 200 mg DAILY PO Last administered on 12/31/16 09:12 ; Admin Dose 200 MG; Start 12/31/16 at 09:00 YUMIKO ALATORRE NP December 31, 2016 19:09
[2016-12-31] MEDS: INSULIN GLARGINE [LANtus] 3 ML PEN SC SCH (21:21)
[2017-01-01] VITALS (16 sets, daily range): BP systolic 115–155; BP diastolic 58–84; PULSE 72–96; RESP 18–20
[2017-01-01] MEDS: ACCU-CHEK XX SCH (02:53)
[2017-01-01] MEDS: LORAZEPAM 2 MG INJ IV PRN ×3 (03:44→22:07)
[2017-01-01 05:43] LABS: ADD SCAN DIFF NO
[2017-01-01 05:47] LABS: BASOPHIL # 0.1 10^3/ul (0.0-0.1); BASOPHILS % 0.7 % (0.0-2.0); EOSINOPHILS # 0.1 10^3/ul (0.0-0.5); EOSINOPHILS % 1.7 % (0.0-7.0); HEMATOCRIT 27.8 % (42.0-52.0); HEMOGLOBIN 8.5 g/dl (14.0-18.0); LYMPHOCYTES # 0.7 10^3/ul (0.8-2.9); LYMPHOCYTES % 9.2 % (15.0-51.0); MEAN CORPUSCULAR HEMOGLOBIN 30.5 pg (29.0-33.0); MEAN CORPUSCULAR HGB CONC 30.6 g/dl (32.0-37.0); MEAN CORPUSCULAR VOLUME 99.6 fl (82.0-101.0); MEAN PLATELET VOLUME 10.2 fl (7.4-10.4); MONOCYTE # 0.8 10^3/ul (0.3-0.9); MONOCYTES % 11.6 % (0.0-11.0); NEUTROPHIL # 5.5 10^3/ul (1.6-7.5); NEUTROPHILS % 76.1 % (39.0-77.0); PLATELET COUNT 156 10^3/UL (140-415); RED BLOOD COUNT 2.79 10^6/ul (4.70-6.10); RED CELL DISTRIBUTION WIDTH 14.3 % (11.5-14.5); WHITE BLOOD COUNT 7.3 10^3/ul (4.8-10.8)
[2017-01-01] MEDS: PANTOPRAZOLE (EC) 40 MG TAB PO SCH (05:56)
[2017-01-01 06:04] LABS: POTASSIUM 4.2 mmol/L (3.5-5.1)
[2017-01-01 06:06] LABS: CREATININE 5.64 mg/dl (0.61-1.24)
[2017-01-01 06:07] LABS: CALCIUM 8.5 mg/dl (8.4-10.2)
[2017-01-01] MEDS: ALBUTEROL/IPRATROPIUM (NEB) 3 ML AMP HHN SCH ×3 (08:13→20:03)
[2017-01-01] MEDS: APIXABAN 5 MG TABLET PO SCH ×2 (08:23→20:53)
[2017-01-01] MEDS: AMIODARONE 200 MG TAB PO SCH (08:23)
[2017-01-01] MEDS: ASPIRIN (EC) 81 MG TAB PO SCH (08:23)
[2017-01-01] MEDS: METOPROLOL 25 MG TAB PO SCH ×2 (08:23→20:53)
[2017-01-01] MEDS: INSULIN ASPART [NOVOLOG] 3 ML PEN SC SCH ×7 (08:25→20:55)
[2017-01-01] MEDS: COLLAGENASE 30 GM TUBE TOP SCH (08:27)
[2017-01-01] MEDS: PIPER-TAZO 2.25 GM (PMX) 50 ML IVPB SCH ×2 (08:27→20:55)
--- NOTE | 2017-01-01 12:16 | PN ---
Date/Time of Note Date/Time of Note DATE: 01/01/17 TIME: 12:14 Assessment/Plan VTE Prophylaxis VTE Prophylaxis Intervention: other Lines/Catheters IV [facility] [facility] Urinary Cath still in place: No Assessment/Plan Assessment/Plan - Acute respiratory failure secondary to pulmonary edema, resolved. Dr. Alvarez is following from pulmonology standpoint. - Bilateral pleural effusion, this post right sided thoracentesis with removal of 900 cc of fluid. - Acute renal failure, Dr. Remy is following in nephrology consultation. Continue hemodialysis per nephrology. Pending permacath placement by vascular surgery. - Acute to subacute right occipital lobe ischemic infarct per CT, Dr Morris is following in neurology consultation. - Paroxysmal atrial fibrillation and positive troponin. Dr. Cobian is following and cardiology consultation. Status post Lexiscan on 12/24. - Fungemia, om Caspofungin. Dr. Pascual is following in infection disease consultation. - Diabetic foot ulcer of the left foot, Dr Lin is following in podiatry consultation. - Cellulitis of left foot, 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 and left fourth proximal phalanx per bone scan. Continue antibiotics per ID. - Aortic stenosis - Diastolic dysfunction congestive heart failure with preserved ejection fraction of 60%. - DM, Hgb A1c is 8.7, continue Lantus and pre-meal NovoLog and NovoLog per sliding scale. -Traumatic hematuria, resolved. Dr. Grey urology consult is appreciated. Pending Dye evaluation Further recommendations based on clinical course. Plan of care discussed with Dr. Heredia. Subjective 24 Hr Interval Summary Free Text/Dictation Patient's continues on BiPAP, afebrile, BP stable complains of poor appetite, family at the bedside, discussed with staff - Constitutional: requiring IVF, requiring O2 Respiratory: no complaints Cardiovascular: no complaints Exam/Review of Systems Vital Signs Vitals Vital Signs Date Time Temp Pulse Resp B/P Pulse Ox O2 Delivery O2 Flow Rate FiO2 01/01/17 11:51 84 16 01/01/17 08:17 91 28 01/01/17 07:21 98.7 155/73 01/01/17 05:01 3.0 12/30/16 20:32 Nasal Cannula Intake and Output 12/31/16 12/31/1601/01/17 15:00 23:00 07:00 Intake Total 400 ml 100 ml Balance 400 ml 100 ml Exam Constitutional: alert, well developed Psych: nl mood/affect Eyes: nl sclera ENMT: nl external ears & nose Neck: non-tender Respiratory: diminished breath sounds Cardiovascular: nl pulses Gastrointestinal: non-tender, soft Musculoskeletal: other Extremities: normal pulses Neurological: other Lymph: nontender Results Result Diagram: 01/01/17 0505 01/01/17 0505 Results 24 hrs Laboratory Tests Test 12/31/16 12:31 12/31/16 13:22 12/31/16 17:32 12/31/16 21:12 Bedside Glucose 67 L 90 161 217 Test 01/01/17 02:41 01/01/17 05:05 01/01/17 08:21 01/01/17 11:58 Bedside Glucose 173 177 146 White Blood Count 7.3 Red Blood Count 2.79 L Hemoglobin 8.5 L Hematocrit 27.8 L Mean Corpuscular Volume 99.6 Mean Corpuscular Hemoglobin 30.5 Mean Corpuscular Hemoglobin Concent 30.6 L Red Cell Distribution Width 14.3 Platelet Count 156 Mean Platelet Volume 10.2 Neutrophils % 76.1 Lymphocytes % 9.2 L Monocytes % 11.6 H Eosinophils % 1.7 Basophils % 0.7 Nucleated Red Blood Cells % 0.0 Neutrophils # 5.5 Lymphocytes # 0.7 L Monocytes # 0.8 Eosinophils # 0.1 Basophils # 0.1 Nucleated Red Blood Cells # 0.0 Sodium Level 142 Potassium Level 4.2 Chloride Level 100 Carbon Dioxide Level 27 Anion Gap 19 H Blood Urea Nitrogen 37 H Creatinine 5.64 H Glucose Level 152 Calcium Level 8.5 Medications Medications Current Medications Ondansetron HCl (Zofran Inj) 4 mg Q6H PRN IV NAUSEA AND/OR VOMITING Last administered on 12/13/16 01:13; Admin Dose 4 MG; Start 12/02/16 at 22:30 Miscellaneous Information 1 ea NOTE XX ; Start 12/02/16 at 23:00 Glucose (Glutose) 15 gm Q15M PRN PO DECREASED GLUCOSE; Start 12/02/16 at 23:00 Glucose (Glutose) 22.5 gm Q15M PRN PO DECREASED GLUCOSE; Start 12/02/16 at 23: 00 Dextrose (D50w Syringe) 25 ml Q15M PRN IV DECREASED GLUCOSE Last administered on 12/10/16 05:52; Admin Dose 25 ML; Start 12/02/16 at 23:00 Dextrose (D50w Syringe) 50 ml Q15M PRN IV DECREASED GLUCOSE; Start 12/02/16 at 23:00 Glucagon (Glucagen) 1 mg Q15M PRN IM DECREASED GLUCOSE; Start 12/02/16 at 23:00 Glucose (Glutose) 15 gm Q15M PRN BUCCAL DECREASED GLUCOSE; Start 12/02/16 at 23 :00 Gabapentin (Neurontin) 800 mg TID PO Last administered on 12/08/16 20:33; Admin Dose 800 MG; Start 12/03/16 at 09:00; Status Future Hold Meclizine HCl (Antivert) 25 mg TID PRN PO dizziness Last administered on 09:37; Admin Dose 25 MG; Start 12/02/16 at 23:00 Terazosin HCl (Hytrin) 5 mg HS PO Last administered on 12/07/16 20:28; Admin Dose 5 MG; Start 12/03/16 at 21:00; Status Future Hold Acetaminophen/ Hydrocodone Bitart ([place] (5/325)) 1 tab Q6H PRN PO PAIN LEVEL 4 -7 Last administered on 12/23/16 22:14; Admin Dose 1 TAB; Start 12/02/16 at 23: 30 Acetaminophen (Tylenol Tab) 650 mg Q6H PRN PO PAIN AND OR ELEVATED TEMP Last administered on 12/18/16 10:44; Admin Dose 650 MG; Start 12/02/16 at 23:30 Docusate Sodium (Colace) 100 mg BID PO Last administered on 12/08/16 20:32; Admin Dose 100 MG; Start 12/03/16 at 09:00; Status Future Hold Zolpidem Tartrate (Ambien) 5 mg HS PRN PO INSOMNIA Last administered on 20:53; Admin Dose 5 MG; Start 12/02/16 at 23:30 Benazepril HCl (Lotensin) 10 mg DAILY PO Last administered on 12/07/16 08:26; Admin Dose 10 MG; Start 12/04/16 at 09:00; Status Future Hold Collagenase (Santyl) 1 applic DAILY TOP Last administered on 01/01/17 08:27; Admin Dose 1 APPLIC; Start 12/07/16 at 16:00 Lorazepam (Ativan) 2 mg Q2 PRN IV AGITATION/ANXIETY Last administered on 09:00; Admin Dose 2 MG; Start 12/09/16 at 09:30 Morphine Sulfate (morphine) 2 mg Q2H PRN IV PAIN Last administered on 12/20/16 03:22; Admin Dose 2 MG; Start 12/09/16 at 09:30 Acetaminophen 650 mg 650 mg Q6H PRN [place] ELEVATED TEMPERATURE Last administered on 12/09/16 17:53; Admin Dose 650 MG; Start 12/09/16 at 17:00 Piperacillin Sod/ Tazobactam Sod (Zosyn 2.25gm/ 50ml (Pmx)) 50 ml @ 100 mls/hr Q12 IVPB Last administered on 01/01/17 08:27; Admin Dose 100 MLS/HR; Start at 21:00 Metoprolol Tartrate (Lopressor) 5 mg Q4H PRN IV HR>100 Last administered on 22:23; Admin Dose 5 MG; Start 12/09/16 at 17:48 Hydralazine HCl (Apresoline) 10 mg Q6H PRN IV SBP>150mm hg Last administered on 12/19/16 08:50; Admin Dose 10 MG; Start 12/11/16 at 10:30 Morphine Sulfate (morphine) 2 mg Q2H PRN IV PAIN LEVEL 4-7; Start 12/13/16 at 10 :00 Pantoprazole (Protonix Tab) 40 mg DAILY@06 PO Last administered on 01/01/17 05 :56; Admin Dose 40 MG; Start 12/23/16 at 06:00 Insulin Glargine (Lantus) 22 unit DAILY@20 SC Last administered on 12/31/16 21 :21; Admin Dose 22 UNIT; Start 12/25/16 at 20:00 Diagnostic Test (Pha) (Accu-Chek) 1 ea 02 XX Last administered on 01/01/17 02: 53; Admin Dose 1 EA; Start 12/30/16 at 02:00 Metoprolol Tartrate (Lopressor) 25 mg BID PO Last administered on 01/01/17 08: 23; Admin Dose 25 MG; Start 12/30/16 at 21:00 Aspirin (Halfprin) 81 mg DAILY PO Last administered on 01/01/17 08:23; Admin Dose 81 MG; Start 12/31/16 at 09:00 Apixaban (Eliquis) 2.5 mg BID PO Last administered on 01/01/17 08:23; Admin Dose 2.5 MG; Start 12/30/16 at 21:00 Amiodarone HCl (Cordarone) 200 mg DAILY PO Last administered on 01/01/17 08:23 ; Admin Dose 200 MG; Start 12/31/16 at 09:00 YULIANA SIMMONS January 01, 2017 12:16
--- NOTE | 2017-01-01 12:48 | PN ---
DATE: 01/01/2017 SUBJECTIVE: History of hematuria following pulling out the [place] catheter. The patient has renal f ailure and has been on dialysis and he just had dialysis today as well. The patient is still making some urine and the urine that he is voiding now is clear. OBJECTIVE: VITAL SIGNS: His temperature is 98.7, blood pressure 155/73, pulse 84, respirations 16. ABDOMEN: Soft. LABORATORY DATA: His CBC shows a white count 7.3, hemoglobin 8.5, hematocrit 27.8. The BUN is 37, creatinine 5.64, sodium 142, potassium 4.2, chloride 100, CO2 27. IMPRESSION: Hematuria, traumatic and that has since cleared. From a urological standpoint just obs ervation. Dictated By: JOE KUMAR/MICHELLE Conf#: [id number] DID#: [id number]
--- NOTE | 2017-01-01 13:19 | CONS ---
Date/Time of Note Date/Time of Note DATE: 01/01/17 TIME: 13:16 Assessment/Plan Assessment/Plan Additional Assessment/Plan 1. Oliguric to Anuric Acute kidney injury 2/2 ATN- started on HD on 12/09/16 for acute fluid overload and Pulmonary edema 2. acute resp failure intubated on ventilator -now extubated on 12/10/2016- then again reintubated on 12/13/2016- now self extubated on 12/18/16 3. Moderate to large right pleural effusion s/p Right thoracentesis 900 cc drained on 12/16/16 2. Left foot diabetic ulcer/cellulitis currently on IV antibiotics, Zosyn and vancomycin. 3. History of diabetes mellitus, insulin-dependent with lower extremity neuropathy. 4. History of hypertension. 5. History of aortic stenosis with diastolic dysfunction with ejection fraction 60% on echocardiogram. PLAN: s/p Permacath placement for dialysis access, HD ordered for today HD placement done at [facility] - done- pt gets HD on , , and will continue to follow up will continue HD on TTS schedule while being in hospital Consultation Date/Type/Reason Admit Date/Time Dec 02, 2016 at 21:01 Initial Consult Date Type of Consultation: NEPHROLOGY Referring Provider: VIET PARKER MD 24 HR Interval Summary Free Text/Dictation transferred to [facility] Exam/Review of Systems Vital Signs Vitals Vital Signs Date Time Temp Pulse Resp B/P Pulse Ox O2 Delivery O2 Flow Rate FiO2 01/01/17 11:51 84 16 01/01/17 08:17 91 28 01/01/17 07:21 98.7 155/73 01/01/17 05:01 3.0 12/30/16 20:32 Nasal Cannula Intake and Output 12/31/16 12/31/16 01/01/17 15:00 23:00 07:00 Intake Total 400 ml 100 ml Balance 400 ml 100 ml Exam Constitutional: alert Neck: supple Respiratory: crackles/rales Cardiovascular: nl pulses, regular rate and rhythm Gastrointestinal: non-tender, soft Musculoskeletal: nl extremities to inspection Extremities: No edema Neurological: [employer] II-XII intact, nl mental status, nl speech Skin: rash or lesions (L 1st toe: plantar aspect has eschar, dry non-TTP) Results Result Diagram: 01/01/17 0505 01/01/17 0505 Results 24 hrs Laboratory Tests Test 12/31/16 13:22 12/31/16 17:32 12/31/16 21:12 01/01/17 02:41 Bedside Glucose 90 161 217 173 Test 01/01/17 05:05 01/01/17 08:21 01/01/17 11:58 White Blood Count 7.3 Red Blood Count 2.79 L Hemoglobin 8.5 L Hematocrit 27.8 L Mean Corpuscular Volume 99.6 Mean Corpuscular Hemoglobin 30.5 Mean Corpuscular Hemoglobin Concent 30.6 L Red Cell Distribution Width 14.3 Platelet Count 156 Mean Platelet Volume 10.2 Neutrophils % 76.1 Lymphocytes % 9.2 L Monocytes % 11.6 H Eosinophils % 1.7 Basophils % 0.7 Nucleated Red Blood Cells % 0.0 Neutrophils # 5.5 Lymphocytes # 0.7 L Monocytes # 0.8 Eosinophils # 0.1 Basophils # 0.1 Nucleated Red Blood Cells # 0.0 Sodium Level 142 Potassium Level 4.2 Chloride Level 100 Carbon Dioxide Level 27 Anion Gap 19 H Blood Urea Nitrogen 37 H Creatinine 5.64 H Glucose Level 152 Calcium Level 8.5 Bedside Glucose 177 146 Medications Medications Current Medications Ondansetron HCl (Zofran Inj) 4 mg Q6H PRN IV NAUSEA AND/OR VOMITING Last administered on 12/13/16 01:13; Admin Dose 4 MG; Start 12/02/16 at 22:30 Miscellaneous Information 1 ea NOTE XX ; Start 12/02/16 at 23:00 Glucose (Glutose) 15 gm Q15M PRN PO DECREASED GLUCOSE; Start 12/02/16 at 23:00 Glucose (Glutose) 22.5 gm Q15M PRN PO DECREASED GLUCOSE; Start 12/02/16 at 23: 00 Dextrose (D50w Syringe) 25 ml Q15M PRN IV DECREASED GLUCOSE Last administered on 12/10/16 05:52; Admin Dose 25 ML; Start 12/02/16 at 23:00 Dextrose (D50w Syringe) 50 ml Q15M PRN IV DECREASED GLUCOSE; Start 12/02/16 at 23:00 Glucagon (Glucagen) 1 mg Q15M PRN IM DECREASED GLUCOSE; Start 12/02/16 at 23:00 Glucose (Glutose) 15 gm Q15M PRN BUCCAL DECREASED GLUCOSE; Start 12/02/16 at 23 :00 Gabapentin (Neurontin) 800 mg TID PO Last administered on 12/08/16 20:33; Admin Dose 800 MG; Start 12/03/16 at 09:00; Status Future Hold Meclizine HCl (Antivert) 25 mg TID PRN PO dizziness Last administered on 09:37; Admin Dose 25 MG; Start 12/02/16 at 23:00 Terazosin HCl (Hytrin) 5 mg HS PO Last administered on 12/07/16 20:28; Admin Dose 5 MG; Start 12/03/16 at 21:00; Status Future Hold Acetaminophen/ Hydrocodone Bitart ([place] (5/325)) 1 tab Q6H PRN PO PAIN LEVEL 4 -7 Last administered on 12/23/16 22:14; Admin Dose 1 TAB; Start 12/02/16 at 23: 30 Acetaminophen (Tylenol Tab) 650 mg Q6H PRN PO PAIN AND OR ELEVATED TEMP Last administered on 12/18/16 10:44; Admin Dose 650 MG; Start 12/02/16 at 23:30 Docusate Sodium (Colace) 100 mg BID PO Last administered on 12/08/16 20:32; Admin Dose 100 MG; Start 12/03/16 at 09:00; Status Future Hold Zolpidem Tartrate (Ambien) 5 mg HS PRN PO INSOMNIA Last administered on 20:53; Admin Dose 5 MG; Start 12/02/16 at 23:30 Benazepril HCl (Lotensin) 10 mg DAILY PO Last administered on 12/07/16 08:26; Admin Dose 10 MG; Start 12/04/16 at 09:00; Status Future Hold Collagenase (Santyl) 1 applic DAILY TOP Last administered on 01/01/17 08:27; Admin Dose 1 APPLIC; Start 12/07/16 at 16:00 Lorazepam (Ativan) 2 mg Q2 PRN IV AGITATION/ANXIETY Last administered on 09:00; Admin Dose 2 MG; Start 12/09/16 at 09:30 Morphine Sulfate (morphine) 2 mg Q2H PRN IV PAIN Last administered on 12/20/16 03:22; Admin Dose 2 MG; Start 12/09/16 at 09:30 Acetaminophen 650 mg 650 mg Q6H PRN [place] ELEVATED TEMPERATURE Last administered on 12/09/16 17:53; Admin Dose 650 MG; Start 12/09/16 at 17:00 Piperacillin Sod/ Tazobactam Sod (Zosyn 2.25gm/ 50ml (Pmx)) 50 ml @ 100 mls/hr Q12 IVPB Last administered on 01/01/17 08:27; Admin Dose 100 MLS/HR; Start at 21:00 Metoprolol Tartrate (Lopressor) 5 mg Q4H PRN IV HR>100 Last administered on 22:23; Admin Dose 5 MG; Start 12/09/16 at 17:48 Hydralazine HCl (Apresoline) 10 mg Q6H PRN IV SBP>150mm hg Last administered on 12/19/16 08:50; Admin Dose 10 MG; Start 12/11/16 at 10:30 Morphine Sulfate (morphine) 2 mg Q2H PRN IV PAIN LEVEL 4-7; Start 12/13/16 at 10 :00 Pantoprazole (Protonix Tab) 40 mg DAILY@06 PO Last administered on 01/01/17 05 :56; Admin Dose 40 MG; Start 12/23/16 at 06:00 Insulin Glargine (Lantus) 22 unit DAILY@20 SC Last administered on 12/31/16 21 :21; Admin Dose 22 UNIT; Start 12/25/16 at 20:00 Diagnostic Test (Pha) (Accu-Chek) 1 ea 02 XX Last administered on 01/01/17 02: 53; Admin Dose 1 EA; Start 12/30/16 at 02:00 Metoprolol Tartrate (Lopressor) 25 mg BID PO Last administered on 01/01/17 08: 23; Admin Dose 25 MG; Start 12/30/16 at 21:00 Aspirin (Halfprin) 81 mg DAILY PO Last administered on 01/01/17 08:23; Admin Dose 81 MG; Start 12/31/16 at 09:00 Apixaban (Eliquis) 2.5 mg BID PO Last administered on 01/01/17 08:23; Admin Dose 2.5 MG; Start 12/30/16 at 21:00 Amiodarone HCl (Cordarone) 200 mg DAILY PO Last administered on 01/01/17t 08:23 ; Admin Dose 200 MG; Start 12/31/16 at 09:00 TASHIA MCGARRY MD January 01, 2017 13:18
--- NOTE | 2017-01-01 15:45 | CONS ---
Date/Time of Note Date/Time of Note DATE: 01/01/17 TIME: 15:42 Assessment/Plan Assessment/Plan Additional Assessment/Plan PAF in NSR CHF Severe Aortic Stenosis Respiratory failure s/p extubation Osteomyelitis Cellulitis left foot Diabetic foot Diabetes Tobacco abuse Avoid Diuretics Avoid Volume Overload Continue Metoprolol Continue Amiodarone Continue Eliquis Continue Heparin Continue Insulin Continue antibiotics HD as scheduled Consultation Date/Type/Reason Admit Date/Time Dec 02, 2016 at 21:01 Constitutional: requiring O2 Eyes: no complaints ENT: no complaints Respiratory: no complaints Cardiovascular: no complaints Gastrointestinal: no complaints Genitourinary: no complaints Musculoskeletal: bone/joint pain Skin: skin lesions (L 1st toe) Neurologic: no complaints Endocrine: no complaints Lymphatic: no complaints Psychological: nl mood/affect Immunologic: no complaints Social History Smoking Status: Former smoker Exam/Review of Systems Vital Signs Vitals Vital Signs Date Time Temp Pulse Resp B/P Pulse Ox O2 Delivery O2 Flow Rate FiO2 01/01/17 15:15 3.0 01/01/17 14:53 78 18 96 32 01/01/17 07:21 98.7 155/73 12/30/16 20:32 Nasal Cannula Intake and Output 12/31/16 12/31/16 01/01/17 15:00 23:00 07:00 Intake Total 400 ml 100 ml Balance 400 ml 100 ml Exam Constitutional: alert, oriented Head: atraumatic, normocephalic Neck: non-tender, supple Respiratory: clear to auscultation Cardiovascular: regular rate and rhythm Gastrointestinal: nl liver, spleen, non-tender, soft Musculoskeletal: other (cellulitis left foot) Results Result Diagram: 01/01/17 0505 01/01/17 0505 Results 24 hrs Laboratory Tests Test 12/31/16 17:32 12/31/16 21:12 01/01/17 02:41 01/01/17 05:05 Bedside Glucose 161 217 173 White Blood Count 7.3 Red Blood Count 2.79 L Hemoglobin 8.5 L Hematocrit 27.8 L Mean Corpuscular Volume 99.6 Mean Corpuscular Hemoglobin 30.5 Mean Corpuscular Hemoglobin Concent 30.6 L Red Cell Distribution Width 14.3 Platelet Count 156 Mean Platelet Volume 10.2 Neutrophils % 76.1 Lymphocytes % 9.2 L Monocytes % 11.6 H Eosinophils % 1.7 Basophils % 0.7 Nucleated Red Blood Cells % 0.0 Neutrophils # 5.5 Lymphocytes # 0.7 L Monocytes # 0.8 Eosinophils # 0.1 Basophils # 0.1 Nucleated Red Blood Cells # 0.0 Sodium Level 142 Potassium Level 4.2 Chloride Level 100 Carbon Dioxide Level 27 Anion Gap 19 H Blood Urea Nitrogen 37 H Creatinine 5.64 H Glucose Level 152 Calcium Level 8.5 Test 01/01/17 08:21 01/01/17 11:58 Bedside Glucose 177 146 Medications Medications Current Medications Ondansetron HCl (Zofran Inj) 4 mg Q6H PRN IV NAUSEA AND/OR VOMITING Last administered on 12/13/16 01:13; Admin Dose 4 MG; Start 12/02/16 at 22:30 Miscellaneous Information 1 ea NOTE XX ; Start 12/02/16 at 23:00 Glucose (Glutose) 15 gm Q15M PRN PO DECREASED GLUCOSE; Start 12/02/16 at 23:00 Glucose (Glutose) 22.5 gm Q15M PRN PO DECREASED GLUCOSE; Start 12/02/16 at 23: 00 Dextrose (D50w Syringe) 25 ml Q15M PRN IV DECREASED GLUCOSE Last administered on 12/10/16 05:52; Admin Dose 25 ML; Start 12/02/16 at 23:00 Dextrose (D50w Syringe) 50 ml Q15M PRN IV DECREASED GLUCOSE; Start 12/02/16 at 23:00 Glucagon (Glucagen) 1 mg Q15M PRN IM DECREASED GLUCOSE; Start 12/02/16 at 23:00 Glucose (Glutose) 15 gm Q15M PRN BUCCAL DECREASED GLUCOSE; Start 12/02/16 at 23 :00 Gabapentin (Neurontin) 800 mg TID PO Last administered on 12/08/16 20:33; Admin Dose 800 MG; Start 12/03/16 at 09:00; Status Future Hold Meclizine HCl (Antivert) 25 mg TID PRN PO dizziness Last administered on 09:37; Admin Dose 25 MG; Start 12/02/16 at 23:00 Terazosin HCl (Hytrin) 5 mg HS PO Last administered on 12/07/16 20:28; Admin Dose 5 MG; Start 12/03/16 at 21:00; Status Future Hold Acetaminophen/ Hydrocodone Bitart ([place] (5/325)) 1 tab Q6H PRN PO PAIN LEVEL 4 -7 Last administered on 12/23/16 22:14; Admin Dose 1 TAB; Start 12/02/16 at 23: 30 Acetaminophen (Tylenol Tab) 650 mg Q6H PRN PO PAIN AND OR ELEVATED TEMP Last administered on 12/18/16 10:44; Admin Dose 650 MG; Start 12/02/16 at 23:30 Docusate Sodium (Colace) 100 mg BID PO Last administered on 12/08/16 20:32; Admin Dose 100 MG; Start 12/03/16 at 09:00; Status Future Hold Zolpidem Tartrate (Ambien) 5 mg HS PRN PO INSOMNIA Last administered on 20:53; Admin Dose 5 MG; Start 12/02/16 at 23:30 Benazepril HCl (Lotensin) 10 mg DAILY PO Last administered on 12/07/16 08:26; Admin Dose 10 MG; Start 12/04/16 at 09:00; Status Future Hold Collagenase (Santyl) 1 applic DAILY TOP Last administered on 01/01/17 08:27; Admin Dose 1 APPLIC; Start 12/07/16 at 16:00 Lorazepam (Ativan) 2 mg Q2 PRN IV AGITATION/ANXIETY Last administered on 09:00; Admin Dose 2 MG; Start 12/09/16 at 09:30 Morphine Sulfate (morphine) 2 mg Q2H PRN IV PAIN Last administered on 12/20/16 03:22; Admin Dose 2 MG; Start 12/09/16 at 09:30 Acetaminophen 650 mg 650 mg Q6H PRN [place] ELEVATED TEMPERATURE Last administered on 12/09/16 17:53; Admin Dose 650 MG; Start 12/09/16 at 17:00 Piperacillin Sod/ Tazobactam Sod (Zosyn 2.25gm/ 50ml (Pmx)) 50 ml @ 100 mls/hr Q12 IVPB Last administered on 01/01/17 08:27; Admin Dose 100 MLS/HR; Start at 21:00 Metoprolol Tartrate (Lopressor) 5 mg Q4H PRN IV HR>100 Last administered on 22:23; Admin Dose 5 MG; Start 12/09/16 at 17:48 Hydralazine HCl (Apresoline) 10 mg Q6H PRN IV SBP>150mm hg Last administered on 12/19/16 08:50; Admin Dose 10 MG; Start 12/11/16 at 10:30 Morphine Sulfate (morphine) 2 mg Q2H PRN IV PAIN LEVEL 4-7; Start 12/13/16 at 10 :00 Pantoprazole (Protonix Tab) 40 mg DAILY@06 PO Last administered on 01/01/17 05 :56; Admin Dose 40 MG; Start 12/23/16 at 06:00 Insulin Glargine (Lantus) 22 unit DAILY@20 SC Last administered on 12/31/16 21 :21; Admin Dose 22 UNIT; Start 12/25/16 at 20:00 Diagnostic Test (Pha) (Accu-Chek) 1 ea 02 XX Last administered on 01/01/17 02: 53; Admin Dose 1 EA; Start 12/30/16 at 02:00 Metoprolol Tartrate (Lopressor) 25 mg BID PO Last administered on 01/01/17 08: 23; Admin Dose 25 MG; Start 12/30/16 at 21:00 Aspirin (Halfprin) 81 mg DAILY PO Last administered on 01/01/17 08:23; Admin Dose 81 MG; Start 12/31/16 at 09:00 Apixaban (Eliquis) 2.5 mg BID PO Last administered on 01/01/17 08:23; Admin Dose 2.5 MG; Start 12/30/16 at 21:00 Amiodarone HCl (Cordarone) 200 mg DAILY PO Last administered on 01/01/17 08:23 ; Admin Dose 200 MG; Start 12/31/16 at 09:00 VIRI ROY M.D. January 01, 2017 15:45
--- NOTE | 2017-01-01 17:44 | CONS ---
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 Blood cultures from HD catheter on 12/13/2016 are negative to date. 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 Blood cultures from HD catheter on 12/13/2016 are negative to date. 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 superficial swab grew inna only - right pleural effusion s/p thoracentesis with .9L removed on 12/16/2016; (Note: there is no pleural fluid cx since orders were placed after Right thoracentesis , and Left thoracentesis was not performed on 12/17/16 d/t insufficient fluid) - funguria - ARANZA, on HD from 12/09/2016 - A fib; now in SR - troponin+ - small nonreversible perfusion abnormality in the inferoapical and inferior carver; EF 36% per Lexiscan 12/24/2016 - severe , EF 40-45% per TTE 12/17/16 - DM - Hgb A1c 8.7% - HTN associated with DM - Episodes of hypercapnic respiratory failure, responding well to BiPAP recommendations: - finish renally dosed pip/tazo (12/03/2016) empirically for diabetic foot infection while in hospital (s/p linezolid); May D/c home on po Levaquin/Flagyl to complete course - ultimately, Pt needs 6 weeks of antibiotics to treat 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 and left fourth proximal phalanx: 12/03/2016 through 01/15/2017 - DC planning in progress; awaiting Dye eval. Problems: Consultation Date/Type/Reason Admit Date/Time Dec 02, 2016 at 21:01 Type of Consultation: id Referring Provider: VIET PARKER MD Exam/Review of Systems Vital Signs Vitals Vital Signs Date Time Temp Pulse Resp B/P Pulse Ox O2 Delivery O2 Flow Rate FiO2 01/01/17 17:18 82 97 30 01/01/17 15:15 3.0 01/01/17 14:53 18 01/01/17 07:21 98.7 155/73 12/30/16 20:32 Nasal Cannula Intake and Output 12/31/16 12/31/16 01/01/17 15:00 23:00 07:00 Intake Total 400 ml 100 ml Balance 400 ml 100 ml Exam Constitutional: alert, oriented, well developed Psych: nl mood/affect, no complaints Head: atraumatic, normocephalic ENMT: nl external ears & nose, nl lips & teeth, nl nasal mucosa & septum Neck: non-tender, supple Respiratory: clear to auscultation, normal air movement Cardiovascular: nl pulses, regular rate and rhythm Gastrointestinal: nl liver, spleen, non-tender, soft Musculoskeletal: nl extremities to inspection, nl gait and stance Results Result Diagram: 01/01/17 0505 01/01/17 0505 Results 24 hrs Laboratory Tests Test 12/31/16 21:12 01/01/17 02:41 01/01/17 05:05 01/01/17 08:21 Bedside Glucose 217 173 177 White Blood Count 7.3 Red Blood Count 2.79 L Hemoglobin 8.5 L Hematocrit 27.8 L Mean Corpuscular Volume 99.6 Mean Corpuscular Hemoglobin 30.5 Mean Corpuscular Hemoglobin Concent 30.6 L Red Cell Distribution Width 14.3 Platelet Count 156 Mean Platelet Volume 10.2 Neutrophils % 76.1 Lymphocytes % 9.2 L Monocytes % 11.6 H Eosinophils % 1.7 Basophils % 0.7 Nucleated Red Blood Cells % 0.0 Neutrophils # 5.5 Lymphocytes # 0.7 L Monocytes # 0.8 Eosinophils # 0.1 Basophils # 0.1 Nucleated Red Blood Cells # 0.0 Sodium Level 142 Potassium Level 4.2 Chloride Level 100 Carbon Dioxide Level 27 Anion Gap 19 H Blood Urea Nitrogen 37 H Creatinine 5.64 H Glucose Level 152 Calcium Level 8.5 Test 01/01/17 11:58 01/01/17 17:04 Bedside Glucose 146 165 Medications Medications Current Medications Ondansetron HCl (Zofran Inj) 4 mg Q6H PRN IV NAUSEA AND/OR VOMITING Last administered on 12/13/16 01:13; Admin Dose 4 MG; Start 12/02/16 at 22:30 Miscellaneous Information 1 ea NOTE XX ; Start 12/02/16 at 23:00 Glucose (Glutose) 15 gm Q15M PRN PO DECREASED GLUCOSE; Start 12/02/16 at 23:00 Glucose (Glutose) 22.5 gm Q15M PRN PO DECREASED GLUCOSE; Start 12/02/16 at 23: 00 Dextrose (D50w Syringe) 25 ml Q15M PRN IV DECREASED GLUCOSE Last administered on 12/10/16 05:52; Admin Dose 25 ML; Start 12/02/16 at 23:00 Dextrose (D50w Syringe) 50 ml Q15M PRN IV DECREASED GLUCOSE; Start 12/02/16 at 23:00 Glucagon (Glucagen) 1 mg Q15M PRN IM DECREASED GLUCOSE; Start 12/02/16 at 23:00 Glucose (Glutose) 15 gm Q15M PRN BUCCAL DECREASED GLUCOSE; Start 12/02/16 at 23 :00 Gabapentin (Neurontin) 800 mg TID PO Last administered on 12/08/16 20:33; Admin Dose 800 MG; Start 12/03/16 at 09:00; Status Future Hold Meclizine HCl (Antivert) 25 mg TID PRN PO dizziness Last administered on 09:37; Admin Dose 25 MG; Start 12/02/16 at 23:00 Terazosin HCl (Hytrin) 5 mg HS PO Last administered on 12/07/16 20:28; Admin Dose 5 MG; Start 12/03/16 at 21:00; Status Future Hold Acetaminophen/ Hydrocodone Bitart ([place] (5/325)) 1 tab Q6H PRN PO PAIN LEVEL 4 -7 Last administered on 12/23/16 22:14; Admin Dose 1 TAB; Start 12/02/16 at 23: 30 Acetaminophen (Tylenol Tab) 650 mg Q6H PRN PO PAIN AND OR ELEVATED TEMP Last administered on 12/18/16 10:44; Admin Dose 650 MG; Start 12/02/16 at 23:30 Docusate Sodium (Colace) 100 mg BID PO Last administered on 12/08/16 20:32; Admin Dose 100 MG; Start 12/03/16 at 09:00; Status Future Hold Zolpidem Tartrate (Ambien) 5 mg HS PRN PO INSOMNIA Last administered on 20:53; Admin Dose 5 MG; Start 12/02/16 at 23:30 Benazepril HCl (Lotensin) 10 mg DAILY PO Last administered on 12/07/16 08:26; Admin Dose 10 MG; Start 12/04/16 at 09:00; Status Future Hold Collagenase (Santyl) 1 applic DAILY TOP Last administered on 01/01/17 08:27; Admin Dose 1 APPLIC; Start 12/07/16 at 16:00 Lorazepam (Ativan) 2 mg Q2 PRN IV AGITATION/ANXIETY Last administered on 09:00; Admin Dose 2 MG; Start 12/09/16 at 09:30 Morphine Sulfate (morphine) 2 mg Q2H PRN IV PAIN Last administered on 12/20/16 03:22; Admin Dose 2 MG; Start 12/09/16 at 09:30 Acetaminophen 650 mg 650 mg Q6H PRN [place] ELEVATED TEMPERATURE Last administered on 12/09/16 17:53; Admin Dose 650 MG; Start 12/09/16 at 17:00 Piperacillin Sod/ Tazobactam Sod (Zosyn 2.25gm/ 50ml (Pmx)) 50 ml @ 100 mls/hr Q12 IVPB Last administered on 01/01/17 08:27; Admin Dose 100 MLS/HR; Start at 21:00 Metoprolol Tartrate (Lopressor) 5 mg Q4H PRN IV HR>100 Last administered on 22:23; Admin Dose 5 MG; Start 12/09/16 at 17:48 Hydralazine HCl (Apresoline) 10 mg Q6H PRN IV SBP>150mm hg Last administered on 12/19/16 08:50; Admin Dose 10 MG; Start 12/11/16 at 10:30 Morphine Sulfate (morphine) 2 mg Q2H PRN IV PAIN LEVEL 4-7; Start 12/13/16 at 10 :00 Pantoprazole (Protonix Tab) 40 mg DAILY@06 PO Last administered on 01/01/17 05 :56; Admin Dose 40 MG; Start 12/23/16 at 06:00 Insulin Glargine (Lantus) 22 unit DAILY@20 SC Last administered on 12/31/16 21 :21; Admin Dose 22 UNIT; Start 12/25/16 at 20:00 Diagnostic Test (Pha) (Accu-Chek) 1 ea 02 XX Last administered on 01/01/17 02: 53; Admin Dose 1 EA; Start 12/30/16 at 02:00 Metoprolol Tartrate (Lopressor) 25 mg BID PO Last administered on 01/01/17 08: 23; Admin Dose 25 MG; Start 12/30/16 at 21:00 Aspirin (Halfprin) 81 mg DAILY PO Last administered on 01/01/17 08:23; Admin Dose 81 MG; Start 12/31/16 at 09:00 Apixaban (Eliquis) 2.5 mg BID PO Last administered on 01/01/17 08:23; Admin Dose 2.5 MG; Start 12/30/16 at 21:00 Amiodarone HCl (Cordarone) 200 mg DAILY PO Last administered on 01/01/17 08:23 ; Admin Dose 200 MG; Start 12/31/16 at 09:00 NIKHIL RAM MD January 01, 2017 17:44
[2017-01-01] MEDS: INSULIN GLARGINE [LANtus] 3 ML PEN SC SCH (20:52)
[2017-01-02] VITALS (11 sets, daily range): BP systolic 137–142; BP diastolic 65–66; PULSE 67–94; RESP 20–22
[2017-01-02] MEDS: ACCU-CHEK XX SCH (01:09)
[2017-01-02] MEDS: LORAZEPAM 2 MG INJ IV PRN ×4 (01:14→23:00)
[2017-01-02] MEDS: PANTOPRAZOLE (EC) 40 MG TAB PO SCH (05:13)
[2017-01-02 05:33] LABS: ADD SCAN DIFF NO
[2017-01-02 05:36] LABS: BASOPHIL # 0.1 10^3/ul (0.0-0.1); BASOPHILS % 0.7 % (0.0-2.0); EOSINOPHILS # 0.1 10^3/ul (0.0-0.5); EOSINOPHILS % 1.6 % (0.0-7.0); HEMOGLOBIN 8.7 g/dl (14.0-18.0); LYMPHOCYTES # 0.8 10^3/ul (0.8-2.9); LYMPHOCYTES % 10.8 % (15.0-51.0); MEAN CORPUSCULAR HEMOGLOBIN 30.6 pg (29.0-33.0); MEAN CORPUSCULAR HGB CONC 31.1 g/dl (32.0-37.0); MEAN CORPUSCULAR VOLUME 98.6 fl (82.0-101.0); MONOCYTE # 0.7 10^3/ul (0.3-0.9); MONOCYTES % 9.9 % (0.0-11.0); NEUTROPHIL # 5.3 10^3/ul (1.6-7.5); NEUTROPHILS % 76.4 % (39.0-77.0); PLATELET COUNT 182 10^3/UL (140-415); RED BLOOD COUNT 2.84 10^6/ul (4.70-6.10); RED CELL DISTRIBUTION WIDTH 14.1 % (11.5-14.5); WHITE BLOOD COUNT 6.9 10^3/ul (4.8-10.8)
[2017-01-02 05:55] LABS: CALCIUM 8.7 mg/dl (8.4-10.2); CREATININE 4.18 mg/dl (0.61-1.24); POTASSIUM 3.7 mmol/L (3.5-5.1)
[2017-01-02] MEDS: ASPIRIN (EC) 81 MG TAB PO SCH (08:07)
[2017-01-02] MEDS: INSULIN ASPART [NOVOLOG] 3 ML PEN SC SCH ×7 (08:07→20:09)
[2017-01-02] MEDS: METOPROLOL 25 MG TAB PO SCH ×2 (08:08→21:03)
[2017-01-02] MEDS: AMIODARONE 200 MG TAB PO SCH (08:08)
[2017-01-02] MEDS: APIXABAN 5 MG TABLET PO SCH ×2 (08:09→21:03)
[2017-01-02] MEDS: COLLAGENASE 30 GM TUBE TOP SCH (08:12)
[2017-01-02] MEDS: ALBUTEROL/IPRATROPIUM (NEB) 3 ML AMP HHN SCH ×3 (08:42→20:29)
[2017-01-02] MEDS: PIPER-TAZO 2.25 GM (PMX) 50 ML IVPB SCH ×2 (09:04→21:21)
--- NOTE | 2017-01-02 11:01 | CONS ---
Date/Time of Note Date/Time of Note DATE: 01/02/17 TIME: 10:59 Assessment/Plan Assessment/Plan Additional Assessment/Plan PAF in NSR CHF Severe Aortic Stenosis Respiratory failure s/p extubation Osteomyelitis Cellulitis left foot Diabetic foot Diabetes Tobacco abuse BP well controlled Avoid Diuretics Avoid Volume Overload Continue Metoprolol Continue Amiodarone Continue Eliquis Continue Insulin Continue antibiotics HD as scheduled Consultation Date/Type/Reason Admit Date/Time Dec 02, 2016 at 21:01 Initial Consult Date 12/08/16 Type of Consultation: id Referring Provider: VIET PARKER MD Exam/Review of Systems Vital Signs Vitals Vital Signs Date Time Temp Pulse Resp B/P Pulse Ox O2 Delivery O2 Flow Rate FiO2 01/02/17 08:47 73 20 97 01/02/17 07:48 97.5 142/66 01/02/17 07:23 30 01/02/17 06:32 3.0 12/30/16 20:32 Nasal Cannula Intake and Output 01/01/17 01/01/17 01/02/17 15:00 23:00 07:00 Intake Total 450 ml 720 ml 290 ml Output Total 3400 ml 200 ml Balance -2950 ml 520 ml 290 ml Exam Constitutional: alert, oriented Head: atraumatic, normocephalic Neck: non-tender, supple Respiratory: clear to auscultation Cardiovascular: regular rate and rhythm Gastrointestinal: nl liver, spleen, non-tender, soft Musculoskeletal: other (cellulitis left foot) Results Result Diagram: 01/02/17 0509 01/02/17 0509 Results 24 hrs Laboratory Tests Test 01/01/17 11:58 01/01/17 17:04 01/01/17 20:50 01/02/17 05:09 Bedside Glucose 146 165 175 White Blood Count 6.9 Red Blood Count 2.84 L Hemoglobin 8.7 L Hematocrit 28.0 L Mean Corpuscular Volume 98.6 Mean Corpuscular Hemoglobin 30.6 Mean Corpuscular Hemoglobin Concent 31.1 L Red Cell Distribution Width 14.1 Platelet Count 182 Mean Platelet Volume 10.0 Neutrophils % 76.4 Lymphocytes % 10.8 L Monocytes % 9.9 Eosinophils % 1.6 Basophils % 0.7 Nucleated Red Blood Cells % 0.0 Neutrophils # 5.3 Lymphocytes # 0.8 Monocytes # 0.7 Eosinophils # 0.1 Basophils # 0.1 Nucleated Red Blood Cells # 0.0 Sodium Level 142 Potassium Level 3.7 Chloride Level 105 Carbon Dioxide Level 27 Anion Gap 14 Blood Urea Nitrogen 25 #H Creatinine 4.18 #H Glucose Level 122 Calcium Level 8.7 Test 01/02/17 07:59 Bedside Glucose 143 Medications Medications Current Medications Ondansetron HCl (Zofran Inj) 4 mg Q6H PRN IV NAUSEA AND/OR VOMITING Last administered on 12/13/16 01:13; Admin Dose 4 MG; Start 12/02/16 at 22:30 Miscellaneous Information 1 ea NOTE XX ; Start 12/02/16 at 23:00 Glucose (Glutose) 15 gm Q15M PRN PO DECREASED GLUCOSE; Start 12/02/16 at 23:00 Glucose (Glutose) 22.5 gm Q15M PRN PO DECREASED GLUCOSE; Start 12/02/16 at 23: 00 Dextrose (D50w Syringe) 25 ml Q15M PRN IV DECREASED GLUCOSE Last administered on 12/10/16 05:52; Admin Dose 25 ML; Start 12/02/16 at 23:00 Dextrose (D50w Syringe) 50 ml Q15M PRN IV DECREASED GLUCOSE; Start 12/02/16 at 23:00 Glucagon (Glucagen) 1 mg Q15M PRN IM DECREASED GLUCOSE; Start 12/02/16 at 23:00 Glucose (Glutose) 15 gm Q15M PRN BUCCAL DECREASED GLUCOSE; Start 12/02/16 at 23 :00 Gabapentin (Neurontin) 800 mg TID PO Last administered on 12/08/16 20:33; Admin Dose 800 MG; Start 12/03/16 at 09:00; Status Future Hold Meclizine HCl (Antivert) 25 mg TID PRN PO dizziness Last administered on 09:37; Admin Dose 25 MG; Start 12/02/16 at 23:00 Terazosin HCl (Hytrin) 5 mg HS PO Last administered on 12/07/16 20:28; Admin Dose 5 MG; Start 12/03/16 at 21:00; Status Future Hold Acetaminophen/ Hydrocodone Bitart ([place] (5/325)) 1 tab Q6H PRN PO PAIN LEVEL 4 -7 Last administered on 12/23/16 22:14; Admin Dose 1 TAB; Start 12/02/16 at 23: 30 Acetaminophen (Tylenol Tab) 650 mg Q6H PRN PO PAIN AND OR ELEVATED TEMP Last administered on 12/18/16 10:44; Admin Dose 650 MG; Start 12/02/16 at 23:30 Docusate Sodium (Colace) 100 mg BID PO Last administered on 12/08/16 20:32; Admin Dose 100 MG; Start 12/03/16 at 09:00; Status Future Hold Zolpidem Tartrate (Ambien) 5 mg HS PRN PO INSOMNIA Last administered on 20:53; Admin Dose 5 MG; Start 12/02/16 at 23:30 Benazepril HCl (Lotensin) 10 mg DAILY PO Last administered on 12/07/16 08:26; Admin Dose 10 MG; Start 12/04/16 at 09:00; Status Future Hold Collagenase (Santyl) 1 applic DAILY TOP Last administered on 01/02/17 08:12; Admin Dose 1 APPLIC; Start 12/07/16 at 16:00 Lorazepam (Ativan) 2 mg Q2 PRN IV AGITATION/ANXIETY Last administered on 08:29; Admin Dose 2 MG; Start 12/09/16 at 09:30 Morphine Sulfate (morphine) 2 mg Q2H PRN IV PAIN Last administered on 12/20/16 03:22; Admin Dose 2 MG; Start 12/09/16 at 09:30 Acetaminophen 650 mg 650 mg Q6H PRN [place] ELEVATED TEMPERATURE Last administered on 12/09/16 17:53; Admin Dose 650 MG; Start 12/09/16 at 17:00 Piperacillin Sod/ Tazobactam Sod (Zosyn 2.25gm/ 50ml (Pmx)) 50 ml @ 100 mls/hr Q12 IVPB Last administered on 01/02/17 09:04; Admin Dose 100 MLS/HR; Start at 21:00 Metoprolol Tartrate (Lopressor) 5 mg Q4H PRN IV HR>100 Last administered on 22:23; Admin Dose 5 MG; Start 12/09/16 at 17:48 Hydralazine HCl (Apresoline) 10 mg Q6H PRN IV SBP>150mm hg Last administered on 12/19/16 08:50; Admin Dose 10 MG; Start 12/11/16 at 10:30 Morphine Sulfate (morphine) 2 mg Q2H PRN IV PAIN LEVEL 4-7; Start 12/13/16 at 10 :00 Pantoprazole (Protonix Tab) 40 mg DAILY@06 PO Last administered on 01/02/17 05 :13; Admin Dose 40 MG; Start 12/23/16 at 06:00 Insulin Glargine (Lantus) 22 unit DAILY@20 SC Last administered on 01/01/17 20 :52; Admin Dose 22 UNIT; Start 12/25/16 at 20:00 Diagnostic Test (Pha) (Accu-Chek) 1 ea 02 XX Last administered on 01/01/17 02: 53; Admin Dose 1 EA; Start 12/30/16 at 02:00 Metoprolol Tartrate (Lopressor) 25 mg BID PO Last administered on 01/02/17 08: 08; Admin Dose 25 MG; Start 12/30/16 at 21:00 Aspirin (Halfprin) 81 mg DAILY PO Last administered on 01/02/17 08:07; Admin Dose 81 MG; Start 12/31/16 at 09:00 Apixaban (Eliquis) 2.5 mg BID PO Last administered on 01/02/17 08:09; Admin Dose 2.5 MG; Start 12/30/16 at 21:00 Amiodarone HCl (Cordarone) 200 mg DAILY PO Last administered on 01/02/17 08:08 ; Admin Dose 200 MG; Start 12/31/16 at 09:00 VIRI ROY M.D. January 02, 2017 11:01
--- NOTE | 2017-01-02 16:08 | CONS ---
Date/Time of Note Date/Time of Note DATE: 01/02/17 TIME: 16:07 Assessment/Plan Assessment/Plan Additional Assessment/Plan 1. Oliguric to Anuric Acute kidney injury 2/2 ATN- started on HD on 12/09/16 for acute fluid overload and Pulmonary edema 2. acute resp failure intubated on ventilator -now extubated on 12/10/2016- then again reintubated on 12/13/2016- now self extubated on 12/18/16 3. Moderate to large right pleural effusion s/p Right thoracentesis 900 cc drained on 12/16/16 2. Left foot diabetic ulcer/cellulitis currently on IV antibiotics, Zosyn and vancomycin. 3. History of diabetes mellitus, insulin-dependent with lower extremity neuropathy. 4. History of hypertension. 5. History of aortic stenosis with diastolic dysfunction with ejection fraction 60% on echocardiogram. PLAN: s/p Permacath placement for dialysis access, HD ordered for tomorrow HD placement done at [facility] center - done- pt gets HD on , , and will continue to follow up Consultation Date/Type/Reason Admit Date/Time Dec 02, 2016 at 21:01 Initial Consult Date Type of Consultation: NEPHROLOGY Referring Provider: VIET PARKER MD 24 HR Interval Summary Free Text/Dictation BIPAP using intermittently, Plan for HD tomorrow Exam/Review of Systems Vital Signs Vitals Vital Signs Date Time Temp Pulse Resp B/P Pulse Ox O2 Delivery O2 Flow Rate FiO2 01/02/17 13:32 83 16 99 01/02/17 07:48 97.5 142/66 01/02/17 07:23 30 01/02/17 06:32 3.0 12/30/16 20:32 Nasal Cannula Intake and Output 01/01/17 01/01/17 01/02/17 15:00 23:00 07:00 Intake Total 450 ml 720 ml 290 ml Output Total 3400 ml 200 ml Balance -2950 ml 520 ml 290 ml Exam Constitutional: alert Neck: supple Respiratory: crackles/rales Cardiovascular: nl pulses, regular rate and rhythm Gastrointestinal: non-tender, soft Musculoskeletal: nl extremities to inspection Extremities: No edema Neurological: [employer] II-XII intact, nl mental status, nl speech Skin: rash or lesions (L 1st toe: plantar aspect has eschar, dry non-TTP) Results Result Diagram: 01/02/17 0509 01/02/17 0509 Results 24 hrs Laboratory Tests Test 01/01/17 17:04 01/01/17 20:50 01/02/17 05:09 01/02/17 07:59 Bedside Glucose 165 175 143 White Blood Count 6.9 Red Blood Count 2.84 L Hemoglobin 8.7 L Hematocrit 28.0 L Mean Corpuscular Volume 98.6 Mean Corpuscular Hemoglobin 30.6 Mean Corpuscular Hemoglobin Concent 31.1 L Red Cell Distribution Width 14.1 Platelet Count 182 Mean Platelet Volume 10.0 Neutrophils % 76.4 Lymphocytes % 10.8 L Monocytes % 9.9 Eosinophils % 1.6 Basophils % 0.7 Nucleated Red Blood Cells % 0.0 Neutrophils # 5.3 Lymphocytes # 0.8 Monocytes # 0.7 Eosinophils # 0.1 Basophils # 0.1 Nucleated Red Blood Cells # 0.0 Sodium Level 142 Potassium Level 3.7 Chloride Level 105 Carbon Dioxide Level 27 Anion Gap 14 Blood Urea Nitrogen 25 #H Creatinine 4.18 #H Glucose Level 122 Calcium Level 8.7 Test 01/02/17 11:59 Bedside Glucose 111 Medications Medications Current Medications Ondansetron HCl (Zofran Inj) 4 mg Q6H PRN IV NAUSEA AND/OR VOMITING Last administered on 12/13/16 01:13; Admin Dose 4 MG; Start 12/02/16 at 22:30 Miscellaneous Information 1 ea NOTE XX ; Start 12/02/16 at 23:00 Glucose (Glutose) 15 gm Q15M PRN PO DECREASED GLUCOSE; Start 12/02/16 at 23:00 Glucose (Glutose) 22.5 gm Q15M PRN PO DECREASED GLUCOSE; Start 12/02/16 at 23: 00 Dextrose (D50w Syringe) 25 ml Q15M PRN IV DECREASED GLUCOSE Last administered on 12/10/16 05:52; Admin Dose 25 ML; Start 12/02/16 at 23:00 Dextrose (D50w Syringe) 50 ml Q15M PRN IV DECREASED GLUCOSE; Start 12/02/16 at 23:00 Glucagon (Glucagen) 1 mg Q15M PRN IM DECREASED GLUCOSE; Start 12/02/16 at 23:00 Glucose (Glutose) 15 gm Q15M PRN BUCCAL DECREASED GLUCOSE; Start 12/02/16 at 23 :00 Gabapentin (Neurontin) 800 mg TID PO Last administered on 12/08/16 20:33; Admin Dose 800 MG; Start 12/03/16 at 09:00; Status Future Hold Meclizine HCl (Antivert) 25 mg TID PRN PO dizziness Last administered on 09:37; Admin Dose 25 MG; Start 12/02/16 at 23:00 Terazosin HCl (Hytrin) 5 mg HS PO Last administered on 12/07/16 20:28; Admin Dose 5 MG; Start 12/03/16 at 21:00; Status Future Hold Acetaminophen/ Hydrocodone Bitart ([place] (5/325)) 1 tab Q6H PRN PO PAIN LEVEL 4 -7 Last administered on 12/23/16 22:14; Admin Dose 1 TAB; Start 12/02/16 at 23: 30 Acetaminophen (Tylenol Tab) 650 mg Q6H PRN PO PAIN AND OR ELEVATED TEMP Last administered on 12/18/16 10:44; Admin Dose 650 MG; Start 12/02/16 at 23:30 Docusate Sodium (Colace) 100 mg BID PO Last administered on 12/08/16 20:32; Admin Dose 100 MG; Start 12/03/16 at 09:00; Status Future Hold Zolpidem Tartrate (Ambien) 5 mg HS PRN PO INSOMNIA Last administered on 20:53; Admin Dose 5 MG; Start 12/02/16 at 23:30 Benazepril HCl (Lotensin) 10 mg DAILY PO Last administered on 12/07/16 08:26; Admin Dose 10 MG; Start 12/04/16 at 09:00; Status Future Hold Collagenase (Santyl) 1 applic DAILY TOP Last administered on 01/02/17 08:12; Admin Dose 1 APPLIC; Start 12/07/16 at 16:00 Lorazepam (Ativan) 2 mg Q2 PRN IV AGITATION/ANXIETY Last administered on 08:29; Admin Dose 2 MG; Start 12/09/16 at 09:30 Morphine Sulfate (morphine) 2 mg Q2H PRN IV PAIN Last administered on 12/20/16 03:22; Admin Dose 2 MG; Start 12/09/16 at 09:30 Acetaminophen 650 mg 650 mg Q6H PRN [place] ELEVATED TEMPERATURE Last administered on 12/09/16 17:53; Admin Dose 650 MG; Start 12/09/16 at 17:00 Piperacillin Sod/ Tazobactam Sod (Zosyn 2.25gm/ 50ml (Pmx)) 50 ml @ 100 mls/hr Q12 IVPB Last administered on 01/02/17 09:04; Admin Dose 100 MLS/HR; Start at 21:00 Metoprolol Tartrate (Lopressor) 5 mg Q4H PRN IV HR>100 Last administered on 22:23; Admin Dose 5 MG; Start 12/09/16 at 17:48 Hydralazine HCl (Apresoline) 10 mg Q6H PRN IV SBP>150mm hg Last administered on 12/19/16 08:50; Admin Dose 10 MG; Start 12/11/16 at 10:30 Morphine Sulfate (morphine) 2 mg Q2H PRN IV PAIN LEVEL 4-7; Start 12/13/16 at 10 :00 Pantoprazole (Protonix Tab) 40 mg DAILY@06 PO Last administered on 01/02/17 05 :13; Admin Dose 40 MG; Start 12/23/16 at 06:00 Insulin Glargine (Lantus) 22 unit DAILY@20 SC Last administered on 01/01/17 20 :52; Admin Dose 22 UNIT; Start 12/25/16 at 20:00 Diagnostic Test (Pha) (Accu-Chek) 1 ea 02 XX Last administered on 01/01/17 02: 53; Admin Dose 1 EA; Start 12/30/16 at 02:00 Metoprolol Tartrate (Lopressor) 25 mg BID PO Last administered on 01/02/17 08: 08; Admin Dose 25 MG; Start 12/30/16 at 21:00 Aspirin (Halfprin) 81 mg DAILY PO Last administered on 01/02/17 08:07; Admin Dose 81 MG; Start 12/31/16 at 09:00 Apixaban (Eliquis) 2.5 mg BID PO Last administered on 01/02/17 08:09; Admin Dose 2.5 MG; Start 12/30/16 at 21:00 Amiodarone HCl (Cordarone) 200 mg DAILY PO Last administered on 01/02/17 08:08 ; Admin Dose 200 MG; Start 12/31/16 at 09:00 TASHIA MCGARRY MD January 02, 2017 16:08
--- NOTE | 2017-01-02 16:30 | CONS ---
Date/Time of Note Date/Time of Note DATE: 01/02/17 TIME: 16:29 Consult Date/Type/Reason Admit Date/Time Dec 02, 2016 at 21:01 Initial Consult Date 12/08/16 Type of Consultation: Infectious Disease Reason for Consultation does not appear to be in any acute distress Ordering Provider: VIET PARKER MD Subjective RN reports that anxious when unable to take deep breath/get air Objective Vital Signs Date Time Temp Pulse Resp B/P Pulse Ox O2 Delivery O2 Flow Rate FiO2 01/02/17 13:32 83 16 99 01/02/17 07:48 97.5 142/66 01/02/17 07:23 30 01/02/17 06:32 3.0 12/30/16 20:32 Nasal Cannula Intake and Output 01/01/17 01/01/17 01/02/17 14:59 22:59 06:59 Intake Total 450 ml 720 ml 290 ml Output Total 3400 ml 200 ml Balance -2950 ml 520 ml 290 ml Exam Constitutional: frail male lying in bed in no acute distress Head: atraumatic Eyes: normal sclera Respiratory: diminished lung sounds, supplemental O2, HD catheter right chest Cardiovascular: palpable pulses, regular rate and rhythm Gastrointestinal: soft, nontender, nondistended, audible bowel sounds Genitourinary: almonte catheter in place Musculoskeletal: generalized weakness Extremities: warm, dry, dressing left foot Skin: dressing left foot (see nurse's notes and photos in chart for details_ Neurological: confused at time Psyche: anxious Results/Medications Result Diagram: 01/02/17 0509 01/02/17 0509 Results 24 hrs Laboratory Tests Test 01/01/17 17:04 01/01/17 20:50 01/02/17 05:09 01/02/17 07:59 Bedside Glucose 165 175 143 White Blood Count 6.9 Red Blood Count 2.84 L Hemoglobin 8.7 L Hematocrit 28.0 L Mean Corpuscular Volume 98.6 Mean Corpuscular Hemoglobin 30.6 Mean Corpuscular Hemoglobin Concent 31.1 L Red Cell Distribution Width 14.1 Platelet Count 182 Mean Platelet Volume 10.0 Neutrophils % 76.4 Lymphocytes % 10.8 L Monocytes % 9.9 Eosinophils % 1.6 Basophils % 0.7 Nucleated Red Blood Cells % 0.0 Neutrophils # 5.3 Lymphocytes # 0.8 Monocytes # 0.7 Eosinophils # 0.1 Basophils # 0.1 Nucleated Red Blood Cells # 0.0 Sodium Level 142 Potassium Level 3.7 Chloride Level 105 Carbon Dioxide Level 27 Anion Gap 14 Blood Urea Nitrogen 25 #H Creatinine 4.18 #H Glucose Level 122 Calcium Level 8.7 Test 01/02/17 11:59 Bedside Glucose 111 Medications Current Medications Ondansetron HCl (Zofran Inj) 4 mg Q6H PRN IV NAUSEA AND/OR VOMITING Last administered on 12/13/16 01:13; Admin Dose 4 MG; Start 12/02/16 at 22:30 Miscellaneous Information 1 ea NOTE XX ; Start 12/02/16 at 23:00 Glucose (Glutose) 15 gm Q15M PRN PO DECREASED GLUCOSE; Start 12/02/16 at 23:00 Glucose (Glutose) 22.5 gm Q15M PRN PO DECREASED GLUCOSE; Start 12/02/16 at 23: 00 Dextrose (D50w Syringe) 25 ml Q15M PRN IV DECREASED GLUCOSE Last administered on 12/10/16 05:52; Admin Dose 25 ML; Start 12/02/16 at 23:00 Dextrose (D50w Syringe) 50 ml Q15M PRN IV DECREASED GLUCOSE; Start 12/02/16 at 23:00 Glucagon (Glucagen) 1 mg Q15M PRN IM DECREASED GLUCOSE; Start 12/02/16 at 23:00 Glucose (Glutose) 15 gm Q15M PRN BUCCAL DECREASED GLUCOSE; Start 12/02/16 at 23 :00 Gabapentin (Neurontin) 800 mg TID PO Last administered on 12/08/16 20:33; Admin Dose 800 MG; Start 12/03/16 at 09:00; Status Future Hold Meclizine HCl (Antivert) 25 mg TID PRN PO dizziness Last administered on 09:37; Admin Dose 25 MG; Start 12/02/16 at 23:00 Terazosin HCl (Hytrin) 5 mg HS PO Last administered on 12/07/16 20:28; Admin Dose 5 MG; Start 12/03/16 at 21:00; Status Future Hold Acetaminophen/ Hydrocodone Bitart ([place] (5/325)) 1 tab Q6H PRN PO PAIN LEVEL 4 -7 Last administered on 12/23/16 22:14; Admin Dose 1 TAB; Start 12/02/16 at 23: 30 Acetaminophen (Tylenol Tab) 650 mg Q6H PRN PO PAIN AND OR ELEVATED TEMP Last administered on 12/18/16 10:44; Admin Dose 650 MG; Start 12/02/16 at 23:30 Docusate Sodium (Colace) 100 mg BID PO Last administered on 12/08/16 20:32; Admin Dose 100 MG; Start 12/03/16 at 09:00; Status Future Hold Zolpidem Tartrate (Ambien) 5 mg HS PRN PO INSOMNIA Last administered on 20:53; Admin Dose 5 MG; Start 12/02/16 at 23:30 Benazepril HCl (Lotensin) 10 mg DAILY PO Last administered on 12/07/16 08:26; Admin Dose 10 MG; Start 12/04/16 at 09:00; Status Future Hold Collagenase (Santyl) 1 applic DAILY TOP Last administered on 01/02/17 08:12; Admin Dose 1 APPLIC; Start 12/07/16 at 16:00 Lorazepam (Ativan) 2 mg Q2 PRN IV AGITATION/ANXIETY Last administered on 08:29; Admin Dose 2 MG; Start 12/09/16 at 09:30 Morphine Sulfate (morphine) 2 mg Q2H PRN IV PAIN Last administered on 12/20/16 03:22; Admin Dose 2 MG; Start 12/09/16 at 09:30 Acetaminophen 650 mg 650 mg Q6H PRN [place] ELEVATED TEMPERATURE Last administered on 12/09/16 17:53; Admin Dose 650 MG; Start 12/09/16 at 17:00 Piperacillin Sod/ Tazobactam Sod (Zosyn 2.25gm/ 50ml (Pmx)) 50 ml @ 100 mls/hr Q12 IVPB Last administered on 01/02/17 09:04; Admin Dose 100 MLS/HR; Start at 21:00 Metoprolol Tartrate (Lopressor) 5 mg Q4H PRN IV HR>100 Last administered on 22:23; Admin Dose 5 MG; Start 12/09/16 at 17:48 Hydralazine HCl (Apresoline) 10 mg Q6H PRN IV SBP>150mm hg Last administered on 12/19/16 08:50; Admin Dose 10 MG; Start 12/11/16 at 10:30 Morphine Sulfate (morphine) 2 mg Q2H PRN IV PAIN LEVEL 4-7; Start 12/13/16 at 10 :00 Pantoprazole (Protonix Tab) 40 mg DAILY@06 PO Last administered on 01/02/17 05 :13; Admin Dose 40 MG; Start 12/23/16 at 06:00 Insulin Glargine (Lantus) 22 unit DAILY@20 SC Last administered on 01/01/17 20 :52; Admin Dose 22 UNIT; Start 12/25/16 at 20:00 Diagnostic Test (Pha) (Accu-Chek) 1 ea 02 XX Last administered on 01/01/17 02: 53; Admin Dose 1 EA; Start 12/30/16 at 02:00 Metoprolol Tartrate (Lopressor) 25 mg BID PO Last administered on 01/02/17 08: 08; Admin Dose 25 MG; Start 12/30/16 at 21:00 Aspirin (Halfprin) 81 mg DAILY PO Last administered on 01/02/17 08:07; Admin Dose 81 MG; Start 12/31/16 at 09:00 Apixaban (Eliquis) 2.5 mg BID PO Last administered on 01/02/17 08:09; Admin Dose 2.5 MG; Start 12/30/16 at 21:00 Amiodarone HCl (Cordarone) 200 mg DAILY PO Last administered on 01/02/17 08:08 ; Admin Dose 200 MG; Start 12/31/16 at 09:00 Assessment/Plan Chief Complaint/Hosp Course Chief Complaint/Hosp Course - sepsis due to C. 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 Blood cultures from HD catheter on 12/13/2016 are negative to date. 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 Blood cultures from HD catheter on 12/13/2016 are negative to date. 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 superficial swab grew inna only - right pleural effusion s/p thoracentesis with .9L removed on 12/16/2016; (Note: there is no pleural fluid cx since orders were placed after Right thoracentesis , and Left thoracentesis was not performed on 12/17/16 d/t insufficient fluid) - funguria - ARANZA, on HD from 12/09/2016 - A fib; now in SR - troponin+ - small nonreversible perfusion abnormality in the inferoapical and inferior carver; EF 36% per Lexiscan 12/24/2016 - severe , EF 40-45% per TTE 12/17/16 - DM - Hgb A1c 8.7% - HTN associated with DM - Episodes of hypercapnic respiratory failure, responding well to BiPAP recommendations: - finish renally dosed pip/tazo (12/03/2016) empirically for diabetic foot infection while in hospital (s/p linezolid); December D/c home on po Levaquin/Flagyl to complete course - ultimately, Pt needs 6 weeks of antibiotics to treat 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 and left fourth proximal phalanx: 12/03/2016 through 01/15/2017 - DC planning in progress; awaiting Hardik vora. - Care discussed with ALINA Bernal and DR. Wilson Problems: Additional Assessment/Plan Uses Bipap at night PAULA MUHAMMAD January 02, 2017 16:30
[2017-01-02] MEDS: ACETAMINOPHEN 325 MG TAB PO PRN (17:47)
[2017-01-02] MEDS: INSULIN GLARGINE [LANtus] 3 ML PEN SC SCH (20:09)
--- NOTE | 2017-01-02 23:38 | PN ---
Date/Time of Note Date/Time of Note DATE: 01/02/17 TIME: 23:38 Assessment/Plan Lines/Catheters IV Catheter Type (from Nrs): Saline Lock Molina in Place (from Nrsg): No Assessment/Plan Problems: (1) Non-pressure chronic ulcer of other part of left foot with fat layer exposed (2) Peripheral vascular disease (3) Diabetes, polyneuropathy Assessment/Plan Continue IV antibiotics. Continue dressing changes. Patient is improving. Prognosis is good. I will follow patient in-house. Upon discharge, patient is to follow-up at the [facility] center. Subjective 24 Hr Interval Summary Patient was seen at bedside. Patient is in no acute distress. Patient reports no new adverse events. Patient denies fever, chills, nausea or vomiting. Patient denies pain. Patient denies recent trauma. Patient reports bandages are being changed as directed. Patient does not report any new problems. Constitutional: no complaints Pain Control: well controlled Exam/Review of Systems Vital Signs Vitals Vital Signs Date Time Temp Pulse Resp B/P Pulse Ox O2 Delivery O2 Flow Rate FiO2 01/07/17 08:13 98 2.0 01/07/17 08:01 97.8 87 22 102/72 01/07/17 07:58 30 01/06/17 20:28 Nasal Cannula Intake and Output 01/06/17 01/06/17 01/07/17 15:00 23:00 07:00 Intake Total 850 ml 950 ml 400 ml Output Total 2700 ml 400 ml Balance -1850 ml 550 ml 400 ml Exam Free Text/Dictation Patient was receiving dialysis during examination. Left hallux is healed with no sign of infection. There is no edema or erythema noted. There is nontender to palpation. Palpable pulses noted with decreased sensation to sharp dull vibratory and temperature stimuli. No other changes noted on examination today. Results Result Diagram: 01/07/17 0520 01/07/17 0520 YEIMI LIZARRAGA DPM January 02, 2017 23:38
[2017-01-03] VITALS (16 sets, daily range): BP systolic 120–147; BP diastolic 59–87; PULSE 79–91; RESP 20–24
[2017-01-03] MEDS: ACCU-CHEK XX SCH (01:07)
[2017-01-03] MEDS: LORAZEPAM 2 MG INJ IV PRN ×4 (02:08→14:35)
[2017-01-03] MEDS: PANTOPRAZOLE (EC) 40 MG TAB PO SCH (05:14)
[2017-01-03] MEDS: ALBUTEROL/IPRATROPIUM (NEB) 3 ML AMP HHN SCH ×3 (08:04→20:26)
[2017-01-03] MEDS: METOPROLOL 25 MG TAB PO SCH ×2 (09:00→22:25)
[2017-01-03] MEDS: AMIODARONE 200 MG TAB PO SCH (09:00)
[2017-01-03] MEDS: INSULIN ASPART [NOVOLOG] 3 ML PEN SC SCH ×7 (09:13→20:53)
[2017-01-03] MEDS: ASPIRIN (EC) 81 MG TAB PO SCH (09:18)
[2017-01-03] MEDS: APIXABAN 5 MG TABLET PO SCH ×2 (09:18→20:58)
[2017-01-03] MEDS: PIPER-TAZO 2.25 GM (PMX) 50 ML IVPB SCH ×2 (09:24→20:58)
[2017-01-03] MEDS: COLLAGENASE 30 GM TUBE TOP SCH (09:30)
--- NOTE | 2017-01-03 12:26 | CONS ---
Date/Time of Note Date/Time of Note DATE: 01/03/17 TIME: 12:23 Assessment/Plan Assessment/Plan Chief Complaint/Hosp Course IMPRESSION: 1. Atrial fibrillation-currently in SR/ST with PAC's 2. Hypotension-resolved off of pat 3. Abnormal electrocardiogram with inferolateral T-wave inversions. 4. Respiratory failure-s/p intubation and remains 5. Nonhealing toe ulceration-vascular following 6. Peripheral arterial disease by arterial ultrasound of the lower extremities this admission. 7. Diabetes mellitus. 8. Fevers. 9. Positive troponin-downtrended 10.Bradycardia-improved/stable 11.-severe by echo 12.Cardiomyopathy-EF 40-45% by echo/36% by stress with no ischemia but positive scar Recc: -Now on med-surg -serial ecg -HD for volume removal as necessary/nephrology following -Continue baby asa/eliquis -Continue PO amio in attempt to maintain SR -low dose BB as tolerated only following HR closely -LHC/RHC likey when patient creatnine stable or definately to be continue of HD custodial to truly assess degree of -Will hold on afterload reduction given severe and thus fixed afterload at valve orifice -check cxr Problems: Consultation Date/Type/Reason Admit Date/Time Dec 02, 2016 at 21:01 Initial Consult Date 12/03/16 Type of Consultation: Cardiology Reason for Consultation /CHF Referring Provider: VIET PARKER MD Exam/Review of Systems Vital Signs Vitals Vital Signs Date Time Temp Pulse Resp B/P Pulse Ox O2 Delivery O2 Flow Rate FiO2 01/03/17 11:15 84 01/03/17 11:15 16 01/03/17 08:52 98 30 01/03/17 08:19 98.2 134/65 BIPAP 01/02/17 23:59 3.0 Intake and Output 01/02/17 01/02/17 01/03/17 15:00 23:00 07:00 Intake Total 50 ml 300 ml 530 ml Balance 50 ml 300 ml 530 ml Exam Review of Systems: CONSTITUTIONAL: No fevers, chills. PULMONARY: Ongoing sob CARDIOVASCULAR: No chest pain/palpitations GASTROINTESTINAL: No nausea/vomiting. GENITOURINARY: No hematuria/dysuria. MUSCULOSKELETAL: No myagias/arthalgias. PSYCHIATRIC: The patient denies depression. NEUROLOGIC: No weakness Constitutional: alert Psych: no complaints Head: normocephalic ENMT: mucosa pink and moist Neck: jvd (9 cm water), supple Respiratory: diminished breath sounds (at bases/B) Cardiovascular: regular rate and rhythm Gastrointestinal: non-tender, soft Musculoskeletal: muscle tone (normal) Extremities: edema (none) Neurological: other (No focal deficits) Results Result Diagram: 01/02/17 0509 01/02/17 0509 Results 24 hrs Laboratory Tests Test 01/02/17 17:02 01/02/17 20:05 01/03/17 08:52 01/03/17 12:06 Bedside Glucose 153 142 166 131 Medications Medications Current Medications Ondansetron HCl (Zofran Inj) 4 mg Q6H PRN IV NAUSEA AND/OR VOMITING Last administered on 12/13/16 01:13; Admin Dose 4 MG; Start 12/02/16 at 22:30 Miscellaneous Information 1 ea NOTE XX ; Start 12/02/16 at 23:00 Glucose (Glutose) 15 gm Q15M PRN PO DECREASED GLUCOSE; Start 12/02/16 at 23:00 Glucose (Glutose) 22.5 gm Q15M PRN PO DECREASED GLUCOSE; Start 12/02/16 at 23: 00 Dextrose (D50w Syringe) 25 ml Q15M PRN IV DECREASED GLUCOSE Last administered on 12/10/16 05:52; Admin Dose 25 ML; Start 12/02/16 at 23:00 Dextrose (D50w Syringe) 50 ml Q15M PRN IV DECREASED GLUCOSE; Start 12/02/16 at 23:00 Glucagon (Glucagen) 1 mg Q15M PRN IM DECREASED GLUCOSE; Start 12/02/16 at 23:00 Glucose (Glutose) 15 gm Q15M PRN BUCCAL DECREASED GLUCOSE; Start 12/02/16 at 23 :00 Gabapentin (Neurontin) 800 mg TID PO Last administered on 12/08/16 20:33; Admin Dose 800 MG; Start 12/03/16 at 09:00; Status Future Hold Meclizine HCl (Antivert) 25 mg TID PRN PO dizziness Last administered on 09:37; Admin Dose 25 MG; Start 12/02/16 at 23:00 Terazosin HCl (Hytrin) 5 mg HS PO Last administered on 12/07/16 20:28; Admin Dose 5 MG; Start 12/03/16 at 21:00; Status Future Hold Acetaminophen/ Hydrocodone Bitart ([place] (5/325)) 1 tab Q6H PRN PO PAIN LEVEL 4 -7 Last administered on 12/23/16 22:14; Admin Dose 1 TAB; Start 12/02/16 at 23: 30 Acetaminophen (Tylenol Tab) 650 mg Q6H PRN PO PAIN AND OR ELEVATED TEMP Last administered on 01/02/17 17:47; Admin Dose 650 MG; Start 12/02/16 at 23:30 Docusate Sodium (Colace) 100 mg BID PO Last administered on 12/08/16 20:32; Admin Dose 100 MG; Start 12/03/16 at 09:00; Status Future Hold Zolpidem Tartrate (Ambien) 5 mg HS PRN PO INSOMNIA Last administered on 20:53; Admin Dose 5 MG; Start 12/02/16 at 23:30 Benazepril HCl (Lotensin) 10 mg DAILY PO Last administered on 12/07/16 08:26; Admin Dose 10 MG; Start 12/04/16 at 09:00; Status Future Hold Collagenase (Santyl) 1 applic DAILY TOP Last administered on 01/03/17 09:30; Admin Dose 1 APPLIC; Start 12/07/16 at 16:00 Lorazepam (Ativan) 2 mg Q2 PRN IV AGITATION/ANXIETY Last administered on 09:53; Admin Dose 2 MG; Start 12/09/16 at 09:30 Morphine Sulfate (morphine) 2 mg Q2H PRN IV PAIN Last administered on 12/20/16 03:22; Admin Dose 2 MG; Start 12/09/16 at 09:30 Acetaminophen 650 mg 650 mg Q6H PRN [place] ELEVATED TEMPERATURE Last administered on 12/09/16 17:53; Admin Dose 650 MG; Start 12/09/16 at 17:00 Piperacillin Sod/ Tazobactam Sod (Zosyn 2.25gm/ 50ml (Pmx)) 50 ml @ 100 mls/hr Q12 IVPB Last administered on 01/03/17 09:24; Admin Dose 100 MLS/HR; Start at 21:00 Metoprolol Tartrate (Lopressor) 5 mg Q4H PRN IV HR>100 Last administered on 22:23; Admin Dose 5 MG; Start 12/09/16 at 17:48 Hydralazine HCl (Apresoline) 10 mg Q6H PRN IV SBP>150mm hg Last administered on 12/19/16 08:50; Admin Dose 10 MG; Start 12/11/16 at 10:30 Morphine Sulfate (morphine) 2 mg Q2H PRN IV PAIN LEVEL 4-7; Start 12/13/16 at 10 :00 Pantoprazole (Protonix Tab) 40 mg DAILY@06 PO Last administered on 01/02/17 05 :13; Admin Dose 40 MG; Start 12/23/16 at 06:00 Insulin Glargine (Lantus) 22 unit DAILY@20 SC Last administered on 01/02/17 20 :09; Admin Dose 22 UNIT; Start 12/25/16 at 20:00 Diagnostic Test (Pha) (Accu-Chek) 1 ea 02 XX Last administered on 01/01/17 02: 53; Admin Dose 1 EA; Start 12/30/16 at 02:00 Metoprolol Tartrate (Lopressor) 25 mg BID PO Last administered on 01/02/17 21: 03; Admin Dose 25 MG; Start 12/30/16 at 21:00 Aspirin (Halfprin) 81 mg DAILY PO Last administered on 01/03/17 09:18; Admin Dose 81 MG; Start 12/31/16 at 09:00 Apixaban (Eliquis) 2.5 mg BID PO Last administered on 01/03/17 09:18; Admin Dose 2.5 MG; Start 12/30/16 at 21:00 Amiodarone HCl (Cordarone) 200 mg DAILY PO Last administered on 01/02/17 08:08 ; Admin Dose 200 MG; Start 12/31/16 at 09:00 VICENTE LESLIE January 03, 2017 12:26
--- NOTE | 2017-01-03 13:12 | RADRPT ---
PROCEDURE: XR Chest. CLINICAL INDICATION: 66-year-old male with congestive heart failure. TECHNIQUE: Single frontal view of the chest was obtained. COMPARISON: Chest x-ray 12/29/2016. FINDINGS: The soft tissues are normal. A central venous catheter enters from right internal jugular approach with its tip in the right atrium/superior vena cava area. No pneumothorax is identified. The heart is enlarged. The cardiomediastinal silhouette and hilar structures are normal. The pulmonary vascu lature is increased with bilateral perihilar mixed interstitial and alveolar infiltrates noted. Thes e have worsened slightly in the right and left lungs when compared to the prior study. There are va scular calcifications in the aortic arch. There are bilateral pleural effusions. There are osteophy karley in the thoracic spine. There is an old fracture deformity of the mid right clavicle. IMPRESSION: 1. Congestive heart failure with interstitial edema and bilateral pleural effusions which have worse stefano slightly when compared to the earlier study. 2. Stable dialysis catheter with no evidence of a pneumothorax. 3. Spondylosis of the thoracic spine. 4. Atherosclerosis of the aortic arch. RPTAT:AAJJ Physician Carolyn Date Time Electronically viewed and signed by Physician Carolyn on 01/03/2017 13:11 YARED/
--- NOTE | 2017-01-03 16:05 | CONS ---
Date/Time of Note Date/Time of Note DATE: 01/03/17 TIME: 16:05 Assessment/Plan Assessment/Plan Chief Complaint/Hosp Course - sepsis due to C. glabrata s/p Rx - fungemia due to C. glabrata from 12/09/2016 (peripheral). Blood cultures from HD catheter on 12/13/2016 are negative to date. 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 Blood cultures from HD catheter on 12/13/2016 are negative to date. 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 superficial swab grew inna only - right pleural effusion s/p thoracentesis with .9L removed on 12/16/2016; (Note: there is no pleural fluid cx since orders were placed after Right thoracentesis , and Left thoracentesis was not performed on 12/17/16 d/t insufficient fluid) - funguria - ARANZA, on HD from 12/09/2016 - A fib; now in SR - troponin+ - small nonreversible perfusion abnormality in the inferoapical and inferior carver; EF 36% per Lexiscan 12/24/2016 - severe , EF 40-45% per TTE 12/17/16 - DM - Hgb A1c 8.7% - HTN associated with DM - Episodes of hypercapnic respiratory failure, responding well to BiPAP recommendations: - finish renally dosed pip/tazo (12/03/2016) empirically for diabetic foot infection while in hospital (s/p linezolid); May D/c home on po Levaquin/Flagyl to complete course - ultimately, Pt needs 6 weeks of antibiotics to treat 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 and left fourth proximal phalanx: 12/03/2016 through 01/15/2017 - DC planning in progress; awaiting Dye eval. Problems: Consultation Date/Type/Reason Admit Date/Time Dec 02, 2016 at 21:01 Type of Consultation: id Referring Provider: VIET PARKER MD Exam/Review of Systems Vital Signs Vitals Vital Signs Date Time Temp Pulse Resp B/P Pulse Ox O2 Delivery O2 Flow Rate FiO2 01/03/17 13:27 98 20 100 Nasal Cannula 3.0 01/03/17 08:52 30 01/03/17 08:19 98.2 134/65 Intake and Output 01/02/17 01/02/17 01/03/17 15:00 23:00 07:00 Intake Total 50 ml 300 ml 530 ml Balance 50 ml 300 ml 530 ml Exam Constitutional: alert Psych: confusion, no complaints Head: atraumatic, normocephalic Eyes: EOMI, nl conjunctiva ENMT: nl external ears & nose, nl lips & teeth, nl nasal mucosa & septum Neck: non-tender, supple Respiratory: clear to auscultation, normal air movement Cardiovascular: nl pulses, regular rate and rhythm Results Result Diagram: 01/02/17 0509 01/02/17 0509 Results 24 hrs Laboratory Tests Test 01/02/17 17:02 01/02/17 20:05 01/03/17 08:52 01/03/17 12:06 Bedside Glucose 153 142 166 131 Medications Medications Current Medications Ondansetron HCl (Zofran Inj) 4 mg Q6H PRN IV NAUSEA AND/OR VOMITING Last administered on 12/13/16t 01:13; Admin Dose 4 MG; Start 12/02/16 at 22:30 Miscellaneous Information 1 ea NOTE XX ; Start 12/02/16 at 23:00 Glucose (Glutose) 15 gm Q15M PRN PO DECREASED GLUCOSE; Start 12/02/16 at 23:00 Glucose (Glutose) 22.5 gm Q15M PRN PO DECREASED GLUCOSE; Start 12/02/16 at 23: 00 Dextrose (D50w Syringe) 25 ml Q15M PRN IV DECREASED GLUCOSE Last administered on 12/10/16 05:52; Admin Dose 25 ML; Start 12/02/16 at 23:00 Dextrose (D50w Syringe) 50 ml Q15M PRN IV DECREASED GLUCOSE; Start 12/02/16 at 23:00 Glucagon (Glucagen) 1 mg Q15M PRN IM DECREASED GLUCOSE; Start 12/02/16 at 23:00 Glucose (Glutose) 15 gm Q15M PRN BUCCAL DECREASED GLUCOSE; Start 12/02/16 at 23 :00 Gabapentin (Neurontin) 800 mg TID PO Last administered on 12/08/16 20:33; Admin Dose 800 MG; Start 12/03/16 at 09:00; Status Future Hold Meclizine HCl (Antivert) 25 mg TID PRN PO dizziness Last administered on 09:37; Admin Dose 25 MG; Start 12/02/16 at 23:00 Terazosin HCl (Hytrin) 5 mg HS PO Last administered on 12/07/16 20:28; Admin Dose 5 MG; Start 12/03/16 at 21:00; Status Future Hold Acetaminophen/ Hydrocodone Bitart ([place] (5/325)) 1 tab Q6H PRN PO PAIN LEVEL 4 -7 Last administered on 12/23/16 22:14; Admin Dose 1 TAB; Start 12/02/16 at 23: 30 Acetaminophen (Tylenol Tab) 650 mg Q6H PRN PO PAIN AND OR ELEVATED TEMP Last administered on 01/02/17 17:47; Admin Dose 650 MG; Start 12/02/16 at 23:30 Docusate Sodium (Colace) 100 mg BID PO Last administered on 12/08/16 20:32; Admin Dose 100 MG; Start 12/03/16 at 09:00; Status Future Hold Zolpidem Tartrate (Ambien) 5 mg HS PRN PO INSOMNIA Last administered on 20:53; Admin Dose 5 MG; Start 12/02/16 at 23:30 Benazepril HCl (Lotensin) 10 mg DAILY PO Last administered on 12/07/16 08:26; Admin Dose 10 MG; Start 12/04/16 at 09:00; Status Future Hold Collagenase (Santyl) 1 applic DAILY TOP Last administered on 01/03/17 09:30; Admin Dose 1 APPLIC; Start 12/07/16 at 16:00 Lorazepam (Ativan) 2 mg Q2 PRN IV AGITATION/ANXIETY Last administered on 14:35; Admin Dose 2 MG; Start 12/09/16 at 09:30 Morphine Sulfate (morphine) 2 mg Q2H PRN IV PAIN Last administered on 12/20/16 03:22; Admin Dose 2 MG; Start 12/09/16 at 09:30 Acetaminophen 650 mg 650 mg Q6H PRN [place] ELEVATED TEMPERATURE Last administered on 12/09/16 17:53; Admin Dose 650 MG; Start 12/09/16 at 17:00 Piperacillin Sod/ Tazobactam Sod (Zosyn 2.25gm/ 50ml (Pmx)) 50 ml @ 100 mls/hr Q12 IVPB Last administered on 01/03/17 09:24; Admin Dose 100 MLS/HR; Start at 21:00 Metoprolol Tartrate (Lopressor) 5 mg Q4H PRN IV HR>100 Last administered on 22:23; Admin Dose 5 MG; Start 12/09/16 at 17:48 Hydralazine HCl (Apresoline) 10 mg Q6H PRN IV SBP>150mm hg Last administered on 12/19/16 08:50; Admin Dose 10 MG; Start 12/11/16 at 10:30 Morphine Sulfate (morphine) 2 mg Q2H PRN IV PAIN LEVEL 4-7; Start 12/13/16 at 10 :00 Pantoprazole (Protonix Tab) 40 mg DAILY@06 PO Last administered on 01/02/17 05 :13; Admin Dose 40 MG; Start 12/23/16 at 06:00 Insulin Glargine (Lantus) 22 unit DAILY@20 SC Last administered on 01/02/17 20 :09; Admin Dose 22 UNIT; Start 12/25/16 at 20:00 Diagnostic Test (Pha) (Accu-Chek) 1 ea 02 XX Last administered on 01/01/17 02: 53; Admin Dose 1 EA; Start 12/30/16 at 02:00 Metoprolol Tartrate (Lopressor) 25 mg BID PO Last administered on 01/02/17 21: 03; Admin Dose 25 MG; Start 12/30/16 at 21:00 Aspirin (Halfprin) 81 mg DAILY PO Last administered on 01/03/17 09:18; Admin Dose 81 MG; Start 12/31/16 at 09:00 Apixaban (Eliquis) 2.5 mg BID PO Last administered on 01/03/17 09:18; Admin Dose 2.5 MG; Start 12/30/16 at 21:00 Amiodarone HCl (Cordarone) 200 mg DAILY PO Last administered on 01/02/17 08:08 ; Admin Dose 200 MG; Start 12/31/16 at 09:00 NIKHIL RAM MD January 03, 2017 16:05
--- NOTE | 2017-01-03 17:48 | CONS ---
Date/Time of Note Date/Time of Note DATE: 01/03/17 TIME: 17:47 Assessment/Plan Assessment/Plan Additional Assessment/Plan 1. Oliguric to Anuric Acute kidney injury 2/2 ATN- started on HD on 12/09/16 for acute fluid overload and Pulmonary edema 2. acute resp failure intubated on ventilator -now extubated on 12/10/2016- then again reintubated on 12/13/2016- now self extubated on 12/18/16 3. Moderate to large right pleural effusion s/p Right thoracentesis 900 cc drained on 12/16/16 2. Left foot diabetic ulcer/cellulitis currently on IV antibiotics, Zosyn and vancomycin. 3. History of diabetes mellitus, insulin-dependent with lower extremity neuropathy. 4. History of hypertension. 5. History of aortic stenosis with diastolic dysfunction with ejection fraction 60% on echocardiogram. PLAN: s/p Permacath placement for dialysis access, HD ordered for today, will reassess for another HD in AM awaiting Dye evaluation HD placement done at [facility] HD center - done- pt gets HD on , , and will continue to follow up Consultation Date/Type/Reason Admit Date/Time Dec 02, 2016 at 21:01 Initial Consult Date Type of Consultation: NEPHROLOGY Referring Provider: VIET PARKER MD Exam/Review of Systems Vital Signs Vitals Vital Signs Date Time Temp Pulse Resp B/P Pulse Ox O2 Delivery O2 Flow Rate FiO2 01/03/17 13:27 98 20 100 Nasal Cannula 3.0 01/03/17 08:52 30 01/03/17 08:19 98.2 134/65 Intake and Output 01/02/17 01/02/17 01/03/17 15:00 23:00 07:00 Intake Total 50 ml 300 ml 530 ml Balance 50 ml 300 ml 530 ml Exam Constitutional: alert Neck: supple Respiratory: crackles/rales Cardiovascular: nl pulses, regular rate and rhythm Gastrointestinal: non-tender, soft Musculoskeletal: nl extremities to inspection Extremities: No edema Neurological: [employer] II-XII intact, nl mental status, nl speech Skin: rash or lesions (L 1st toe: plantar aspect has eschar, dry non-TTP) Results Result Diagram: 01/02/17 0509 01/02/17 0509 Results 24 hrs Laboratory Tests Test 01/02/17 20:05 01/03/17 08:52 01/03/17 12:06 01/03/17 17:43 Bedside Glucose 142 166 131 149 Medications Medications Current Medications Ondansetron HCl (Zofran Inj) 4 mg Q6H PRN IV NAUSEA AND/OR VOMITING Last administered on 12/13/16 01:13; Admin Dose 4 MG; Start 12/02/16 at 22:30 Miscellaneous Information 1 ea NOTE XX ; Start 12/02/16 at 23:00 Glucose (Glutose) 15 gm Q15M PRN PO DECREASED GLUCOSE; Start 12/02/16 at 23:00 Glucose (Glutose) 22.5 gm Q15M PRN PO DECREASED GLUCOSE; Start 12/02/16 at 23: 00 Dextrose (D50w Syringe) 25 ml Q15M PRN IV DECREASED GLUCOSE Last administered on 12/10/16 05:52; Admin Dose 25 ML; Start 12/02/16 at 23:00 Dextrose (D50w Syringe) 50 ml Q15M PRN IV DECREASED GLUCOSE; Start 12/02/16 at 23:00 Glucagon (Glucagen) 1 mg Q15M PRN IM DECREASED GLUCOSE; Start 12/02/16 at 23:00 Glucose (Glutose) 15 gm Q15M PRN BUCCAL DECREASED GLUCOSE; Start 12/02/16 at 23 :00 Gabapentin (Neurontin) 800 mg TID PO Last administered on 12/08/16 20:33; Admin Dose 800 MG; Start 12/03/16 at 09:00; Status Future Hold Meclizine HCl (Antivert) 25 mg TID PRN PO dizziness Last administered on 09:37; Admin Dose 25 MG; Start 12/02/16 at 23:00 Terazosin HCl (Hytrin) 5 mg HS PO Last administered on 12/07/16 20:28; Admin Dose 5 MG; Start 12/03/16 at 21:00; Status Future Hold Acetaminophen/ Hydrocodone Bitart ([place] (5/325)) 1 tab Q6H PRN PO PAIN LEVEL 4 -7 Last administered on 12/23/16 22:14; Admin Dose 1 TAB; Start 12/02/16 at 23: 30 Acetaminophen (Tylenol Tab) 650 mg Q6H PRN PO PAIN AND OR ELEVATED TEMP Last administered on 01/02/17 17:47; Admin Dose 650 MG; Start 12/02/16 at 23:30 Docusate Sodium (Colace) 100 mg BID PO Last administered on 12/08/16 20:32; Admin Dose 100 MG; Start 12/03/16 at 09:00; Status Future Hold Zolpidem Tartrate (Ambien) 5 mg HS PRN PO INSOMNIA Last administered on 20:53; Admin Dose 5 MG; Start 12/02/16 at 23:30 Benazepril HCl (Lotensin) 10 mg DAILY PO Last administered on 12/07/16 08:26; Admin Dose 10 MG; Start 12/04/16 at 09:00; Status Future Hold Collagenase (Santyl) 1 applic DAILY TOP Last administered on 01/03/17 09:30; Admin Dose 1 APPLIC; Start 12/07/16 at 16:00 Lorazepam (Ativan) 2 mg Q2 PRN IV AGITATION/ANXIETY Last administered on 14:35; Admin Dose 2 MG; Start 12/09/16 at 09:30 Morphine Sulfate (morphine) 2 mg Q2H PRN IV PAIN Last administered on 12/20/16 03:22; Admin Dose 2 MG; Start 12/09/16 at 09:30 Acetaminophen 650 mg 650 mg Q6H PRN [place] ELEVATED TEMPERATURE Last administered on 12/09/16 17:53; Admin Dose 650 MG; Start 12/09/16 at 17:00 Piperacillin Sod/ Tazobactam Sod (Zosyn 2.25gm/ 50ml (Pmx)) 50 ml @ 100 mls/hr Q12 IVPB Last administered on 01/03/17 09:24; Admin Dose 100 MLS/HR; Start at 21:00 Metoprolol Tartrate (Lopressor) 5 mg Q4H PRN IV HR>100 Last administered on 22:23; Admin Dose 5 MG; Start 12/09/16 at 17:48 Hydralazine HCl (Apresoline) 10 mg Q6H PRN IV SBP>150mm hg Last administered on 12/19/16 08:50; Admin Dose 10 MG; Start 12/11/16 at 10:30 Morphine Sulfate (morphine) 2 mg Q2H PRN IV PAIN LEVEL 4-7; Start 12/13/16 at 10 :00 Pantoprazole (Protonix Tab) 40 mg DAILY@06 PO Last administered on 01/02/17 05 :13; Admin Dose 40 MG; Start 12/23/16 at 06:00 Insulin Glargine (Lantus) 22 unit DAILY@20 SC Last administered on 01/02/17 20 :09; Admin Dose 22 UNIT; Start 12/25/16 at 20:00 Diagnostic Test (Pha) (Accu-Chek) 1 ea 02 XX Last administered on 01/01/17 02: 53; Admin Dose 1 EA; Start 12/30/16 at 02:00 Metoprolol Tartrate (Lopressor) 25 mg BID PO Last administered on 01/02/17 21: 03; Admin Dose 25 MG; Start 12/30/16 at 21:00 Aspirin (Halfprin) 81 mg DAILY PO Last administered on 01/03/17 09:18; Admin Dose 81 MG; Start 12/31/16 at 09:00 Apixaban (Eliquis) 2.5 mg BID PO Last administered on 01/03/17 09:18; Admin Dose 2.5 MG; Start 12/30/16 at 21:00 Amiodarone HCl (Cordarone) 200 mg DAILY PO Last administered on 01/02/17 08:08 ; Admin Dose 200 MG; Start 12/31/16 at 09:00 TASHIA MCGARRY MD January 03, 2017 17:48
--- NOTE | 2017-01-03 20:03 | PN ---
Date/Time of Note Date/Time of Note DATE: 01/03/17 TIME: 20:00 Assessment/Plan VTE Prophylaxis VTE Prophylaxis Intervention: SCD's Lines/Catheters IV [facility] Urinary Cath still in place: No Assessment/Plan Chief Complaint/Hosp Course Assessment/Plan - Acute respiratory failure secondary to pulmonary edema, resolved. Dr. Alvarez is following from pulmonology standpoint. - Bilateral pleural effusion, this post right sided thoracentesis with removal of 900 cc of fluid. - Acute renal failure, Dr. Remy is following in nephrology consultation. Continue hemodialysis per nephrology. Pending permacath placement by vascular surgery. - Acute to subacute right occipital lobe ischemic infarct per CT, Dr Morris is following in neurology consultation. - Paroxysmal atrial fibrillation and positive troponin. Dr. Cobian is following and cardiology consultation. Status post Lexiscan on 12/24. - Fungemia, om Caspofungin. Dr. Pascual is following in infection disease consultation. - Diabetic foot ulcer of the left foot, Dr Lin is following in podiatry consultation. - Cellulitis of left foot, 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 and left fourth proximal phalanx per bone scan. Continue antibiotics per ID. - Aortic stenosis - Diastolic dysfunction congestive heart failure with preserved ejection fraction of 60%. - DM, Hgb A1c is 8.7, continue Lantus and pre-meal NovoLog and NovoLog per sliding scale. -Traumatic hematuria, resolved. Dr. Grey urology consult is appreciated. Further recommendations based on clinical course. Plan of care discussed with Dr. Heredia. Problems: Subjective 24 Hr Interval Summary Free Text/Dictation Patient is status post hemodialysis today, patient gets agitated during hemodialysis was giving Ativan, currently lethargic. Exam/Review of Systems Vital Signs Vitals Vital Signs Date Time Temp Pulse Resp B/P Pulse Ox O2 Delivery O2 Flow Rate FiO2 01/03/17 13:27 98 20 100 Nasal Cannula 3.0 01/03/17 08:52 30 01/03/17 08:19 98.2 134/65 Intake and Output 01/02/17 01/02/17 01/03/17 15:00 23:00 07:00 Intake Total 50 ml 300 ml 530 ml Balance 50 ml 300 ml 530 ml Exam Constitutional: awake, alert Psych: no complaints Head: atraumatic, normocephalic Eyes: nl conjunctiva ENMT: nl external ears & nose Neck: non-tender, supple Respiratory: clear to auscultation, normal air movement Cardiovascular: nl pulses, regular rate and rhythm, systolic murmur Gastrointestinal: non-tender, soft Musculoskeletal: nl extremities to inspection Extremities: normal pulses Neurological: alert *3 Skin: nl turgor, left big toe ulcer. R IJ HD cath Results Result Diagram: 01/02/17 0509 01/02/17 0509 Results 24 hrs Laboratory Tests Test 01/02/17 20:05 01/03/17 08:52 01/03/17 12:06 01/03/17 17:43 Bedside Glucose 142 166 131 149 Medications Medications Current Medications Ondansetron HCl (Zofran Inj) 4 mg Q6H PRN IV NAUSEA AND/OR VOMITING Last administered on 12/13/16 01:13; Admin Dose 4 MG; Start 12/02/16 at 22:30 Miscellaneous Information 1 ea NOTE XX ; Start 12/02/16 at 23:00 Glucose (Glutose) 15 gm Q15M PRN PO DECREASED GLUCOSE; Start 12/02/16 at 23:00 Glucose (Glutose) 22.5 gm Q15M PRN PO DECREASED GLUCOSE; Start 12/02/16 at 23: 00 Dextrose (D50w Syringe) 25 ml Q15M PRN IV DECREASED GLUCOSE Last administered on 12/10/16 05:52; Admin Dose 25 ML; Start 12/02/16 at 23:00 Dextrose (D50w Syringe) 50 ml Q15M PRN IV DECREASED GLUCOSE; Start 12/02/16 at 23:00 Glucagon (Glucagen) 1 mg Q15M PRN IM DECREASED GLUCOSE; Start 12/02/16 at 23:00 Glucose (Glutose) 15 gm Q15M PRN BUCCAL DECREASED GLUCOSE; Start 12/02/16 at 23 :00 Gabapentin (Neurontin) 800 mg TID PO Last administered on 12/08/16 20:33; Admin Dose 800 MG; Start 12/03/16 at 09:00; Status Future Hold Meclizine HCl (Antivert) 25 mg TID PRN PO dizziness Last administered on 09:37; Admin Dose 25 MG; Start 12/02/16 at 23:00 Terazosin HCl (Hytrin) 5 mg HS PO Last administered on 12/07/16 20:28; Admin Dose 5 MG; Start 12/03/16 at 21:00; Status Future Hold Acetaminophen/ Hydrocodone Bitart ([place] (5/325)) 1 tab Q6H PRN PO PAIN LEVEL 4 -7 Last administered on 12/23/16 22:14; Admin Dose 1 TAB; Start 12/02/16 at 23: 30 Acetaminophen (Tylenol Tab) 650 mg Q6H PRN PO PAIN AND OR ELEVATED TEMP Last administered on 01/02/17 17:47; Admin Dose 650 MG; Start 12/02/16 at 23:30 Docusate Sodium (Colace) 100 mg BID PO Last administered on 12/08/16 20:32; Admin Dose 100 MG; Start 12/03/16 at 09:00; Status Future Hold Zolpidem Tartrate (Ambien) 5 mg HS PRN PO INSOMNIA Last administered on 20:53; Admin Dose 5 MG; Start 12/02/16 at 23:30 Benazepril HCl (Lotensin) 10 mg DAILY PO Last administered on 12/07/16 08:26; Admin Dose 10 MG; Start 12/04/16 at 09:00; Status Future Hold Lorazepam (Ativan) 2 mg Q2 PRN IV AGITATION/ANXIETY Last administered on 14:35; Admin Dose 2 MG; Start 12/09/16 at 09:30 Morphine Sulfate (morphine) 2 mg Q2H PRN IV PAIN Last administered on 12/20/16 03:22; Admin Dose 2 MG; Start 12/09/16 at 09:30 Acetaminophen 650 mg 650 mg Q6H PRN [place] ELEVATED TEMPERATURE Last administered on 12/09/16 17:53; Admin Dose 650 MG; Start 12/09/16 at 17:00 Piperacillin Sod/ Tazobactam Sod (Zosyn 2.25gm/ 50ml (Pmx)) 50 ml @ 100 mls/hr Q12 IVPB Last administered on 01/03/17 09:24; Admin Dose 100 MLS/HR; Start at 21:00 Metoprolol Tartrate (Lopressor) 5 mg Q4H PRN IV HR>100 Last administered on 22:23; Admin Dose 5 MG; Start 12/09/16 at 17:48 Hydralazine HCl (Apresoline) 10 mg Q6H PRN IV SBP>150mm hg Last administered on 12/19/16 08:50; Admin Dose 10 MG; Start 12/11/16 at 10:30 Morphine Sulfate (morphine) 2 mg Q2H PRN IV PAIN LEVEL 4-7; Start 12/13/16 at 10 :00 Pantoprazole (Protonix Tab) 40 mg DAILY@06 PO Last administered on 01/02/17 05 :13; Admin Dose 40 MG; Start 12/23/16 at 06:00 Insulin Glargine (Lantus) 22 unit DAILY@20 SC Last administered on 01/02/17 20 :09; Admin Dose 22 UNIT; Start 12/25/16 at 20:00 Diagnostic Test (Pha) (Accu-Chek) 1 ea 02 XX Last administered on 01/01/17 02: 53; Admin Dose 1 EA; Start 12/30/16 at 02:00 Metoprolol Tartrate (Lopressor) 25 mg BID PO Last administered on 01/02/17 21: 03; Admin Dose 25 MG; Start 12/30/16 at 21:00 Aspirin (Halfprin) 81 mg DAILY PO Last administered on 01/03/17 09:18; Admin Dose 81 MG; Start 12/31/16 at 09:00 Apixaban (Eliquis) 2.5 mg BID PO Last administered on 01/03/17 09:18; Admin Dose 2.5 MG; Start 12/30/16 at 21:00 Amiodarone HCl (Cordarone) 200 mg DAILY PO Last administered on 01/02/17 08:08 ; Admin Dose 200 MG; Start 12/31/16 at 09:00 Collagenase (Santyl) 1 applic DAILY TOP ; Start 01/04/17 at 09:00 KIMBERLY NOYOLA January 03, 2017 20:02
[2017-01-03] MEDS: INSULIN GLARGINE [LANtus] 3 ML PEN SC SCH (20:53)
--- NOTE | 2017-01-03 21:07 | PN ---
DATE: 01/03/2017 SUBJECTIVE: History of a traumatic gross hematuria from pulling out the catheter with the balloon i nflated. OBJECTIVE: The patient is voiding. He does not make much urine, but yesterday he made about 300 mL . He is on hemodialysis and the urine is clear. There is no more bleeding. LABORATORY DATA: CBC shows a white count of 6.9, hemoglobin 8.7, hematocrit 28.0. IMPRESSION: Resolved gross hematuria that is from pulling the catheter with the balloon inflated. PLAN: To observe him. He may now and then have a little hematuria, but eventually it will clear an d stay clear. Dictated By: JOE FOREMAN MD BB/MICHELLE Conf#: [id number] DID#: [id number] CC: VIET PARKER MD;*End*
[2017-01-04] VITALS (10 sets, daily range): BP systolic 96–129; BP diastolic 52–77; PULSE 75–85; RESP 16–20
[2017-01-04] MEDS: ACCU-CHEK XX SCH (02:00)
[2017-01-04] MEDS: PANTOPRAZOLE (EC) 40 MG TAB PO SCH (06:13)
[2017-01-04 06:14] LABS: ADD SCAN DIFF NO
[2017-01-04 06:19] LABS: BASOPHILS % 0.5 % (0.0-2.0); EOSINOPHILS # 0.1 10^3/ul (0.0-0.5); HEMATOCRIT 24.6 % (42.0-52.0); LYMPHOCYTES # 0.6 10^3/ul (0.8-2.9); LYMPHOCYTES % 9.4 % (15.0-51.0); MEAN CORPUSCULAR HEMOGLOBIN 31.5 pg (29.0-33.0); MEAN CORPUSCULAR HGB CONC 32.5 g/dl (32.0-37.0); MEAN CORPUSCULAR VOLUME 96.9 fl (82.0-101.0); MONOCYTE # 0.8 10^3/ul (0.3-0.9); MONOCYTES % 11.5 % (0.0-11.0); NEUTROPHIL # 5.1 10^3/ul (1.6-7.5); PLATELET COUNT 187 10^3/UL (140-415); RED BLOOD COUNT 2.54 10^6/ul (4.70-6.10); WHITE BLOOD COUNT 6.6 10^3/ul (4.8-10.8)
[2017-01-04 06:39] LABS: POTASSIUM 3.5 mmol/L (3.5-5.1)
[2017-01-04 06:42] LABS: CREATININE 4.06 mg/dl (0.61-1.24)
[2017-01-04 06:43] LABS: CALCIUM 8.4 mg/dl (8.4-10.2)
[2017-01-04] MEDS: ASPIRIN (EC) 81 MG TAB PO SCH (08:26)
[2017-01-04] MEDS: APIXABAN 5 MG TABLET PO SCH ×2 (08:26→20:51)
[2017-01-04] MEDS: PIPER-TAZO 2.25 GM (PMX) 50 ML IVPB SCH ×2 (08:28→20:50)
[2017-01-04] MEDS: INSULIN ASPART [NOVOLOG] 3 ML PEN SC SCH ×7 (08:31→21:00)
[2017-01-04] MEDS: ALBUTEROL/IPRATROPIUM (NEB) 3 ML AMP HHN SCH ×3 (08:52→20:53)
[2017-01-04] MEDS: AMIODARONE 200 MG TAB PO SCH ×2 (09:00→19:02)
[2017-01-04] MEDS: METOPROLOL 25 MG TAB PO SCH ×2 (09:00→20:51)
--- NOTE | 2017-01-04 09:04 | CONS ---
Date/Time of Note Date/Time of Note DATE: 01/04/17 TIME: 09:03 Assessment/Plan Assessment/Plan Additional Assessment/Plan 1. Oliguric to Anuric Acute kidney injury 2/2 ATN- started on HD on 12/09/16 for acute fluid overload and Pulmonary edema 2. acute resp failure intubated on ventilator -now extubated on 12/10/2016- then again reintubated on 12/13/2016- now self extubated on 12/18/16 3. Moderate to large right pleural effusion s/p Right thoracentesis 900 cc drained on 12/16/16 2. Left foot diabetic ulcer/cellulitis currently on IV antibiotics, Zosyn and vancomycin. 3. History of diabetes mellitus, insulin-dependent with lower extremity neuropathy. 4. History of hypertension. 5. History of aortic stenosis with diastolic dysfunction with ejection fraction 60% on echocardiogram. PLAN: s/p Permacath placement for dialysis access, HD today then pt will be on TTS schedule which will be his outpatient schedule. awaiting Dye evaluation HD placement done at [facility] [place] - done- pt gets HD on , , and will continue to follow up Consultation Date/Type/Reason Admit Date/Time Dec 02, 2016 at 21:01 Initial Consult Date Type of Consultation: NEPHROLOGY Referring Provider: VIET PARKER MD 24 HR Interval Summary Free Text/Dictation pt stable, On Breathign treatment, S/p He yesterday, afebrile, Exam/Review of Systems Vital Signs Vitals Vital Signs Date Time Temp Pulse Resp B/P Pulse Ox O2 Delivery O2 Flow Rate FiO2 01/04/17 06:29 3.0 01/04/17 01:58 82 98 30 01/03/17 20:29 20 Nasal Cannula 01/03/17 20:00 97.4 147/68 Intake and Output 01/03/17 01/03/17 01/04/17 15:00 23:00 07:00 Intake Total 450 ml 770 ml 200 ml Output Total 3400 ml Balance -2950 ml 770 ml 200 ml Results Result Diagram: 01/04/17 0525 01/04/17 0525 Results 24 hrs Laboratory Tests Test 01/03/17 12:06 01/03/17 17:43 01/03/17 20:45 01/04/17 05:25 Bedside Glucose 131 149 178 White Blood Count 6.6 Red Blood Count 2.54 L Hemoglobin 8.0 L Hematocrit 24.6 L Mean Corpuscular Volume 96.9 Mean Corpuscular Hemoglobin 31.5 Mean Corpuscular Hemoglobin Concent 32.5 Red Cell Distribution Width 14.0 Platelet Count 187 Mean Platelet Volume 10.0 Neutrophils % 76.0 Lymphocytes % 9.4 L Monocytes % 11.5 H Eosinophils % 2.0 Basophils % 0.5 Nucleated Red Blood Cells % 0.0 Neutrophils # 5.1 Lymphocytes # 0.6 L Monocytes # 0.8 Eosinophils # 0.1 Basophils # 0.0 Nucleated Red Blood Cells # 0.0 Sodium Level 142 Potassium Level 3.5 Chloride Level 102 Carbon Dioxide Level 26 Anion Gap 18 H Blood Urea Nitrogen 26 H Creatinine 4.06 H Glucose Level 176 Calcium Level 8.4 Test 01/04/17 08:13 Bedside Glucose 155 Medications Medications Current Medications Ondansetron HCl (Zofran Inj) 4 mg Q6H PRN IV NAUSEA AND/OR VOMITING Last administered on 12/13/16 01:13; Admin Dose 4 MG; Start 12/02/16 at 22:30 Miscellaneous Information 1 ea NOTE XX ; Start 12/02/16 at 23:00 Glucose (Glutose) 15 gm Q15M PRN PO DECREASED GLUCOSE; Start 12/02/16 at 23:00 Glucose (Glutose) 22.5 gm Q15M PRN PO DECREASED GLUCOSE; Start 12/02/16 at 23: 00 Dextrose (D50w Syringe) 25 ml Q15M PRN IV DECREASED GLUCOSE Last administered on 12/10/16 05:52; Admin Dose 25 ML; Start 12/02/16 at 23:00 Dextrose (D50w Syringe) 50 ml Q15M PRN IV DECREASED GLUCOSE; Start 12/02/16 at 23:00 Glucagon (Glucagen) 1 mg Q15M PRN IM DECREASED GLUCOSE; Start 12/02/16 at 23:00 Glucose (Glutose) 15 gm Q15M PRN BUCCAL DECREASED GLUCOSE; Start 12/02/16 at 23 :00 Gabapentin (Neurontin) 800 mg TID PO Last administered on 12/08/16 20:33; Admin Dose 800 MG; Start 12/03/16 at 09:00; Status Future Hold Meclizine HCl (Antivert) 25 mg TID PRN PO dizziness Last administered on 09:37; Admin Dose 25 MG; Start 12/02/16 at 23:00 Terazosin HCl (Hytrin) 5 mg HS PO Last administered on 12/07/16 20:28; Admin Dose 5 MG; Start 12/03/16 at 21:00; Status Future Hold Acetaminophen/ Hydrocodone Bitart ([place] (5/325)) 1 tab Q6H PRN PO PAIN LEVEL 4 -7 Last administered on 12/23/16 22:14; Admin Dose 1 TAB; Start 12/02/16 at 23: 30 Acetaminophen (Tylenol Tab) 650 mg Q6H PRN PO PAIN AND OR ELEVATED TEMP Last administered on 01/02/17 17:47; Admin Dose 650 MG; Start 12/02/16 at 23:30 Docusate Sodium (Colace) 100 mg BID PO Last administered on 12/08/16 20:32; Admin Dose 100 MG; Start 12/03/16 at 09:00; Status Future Hold Zolpidem Tartrate (Ambien) 5 mg HS PRN PO INSOMNIA Last administered on 20:53; Admin Dose 5 MG; Start 12/02/16 at 23:30 Benazepril HCl (Lotensin) 10 mg DAILY PO Last administered on 12/07/16 08:26; Admin Dose 10 MG; Start 12/04/16 at 09:00; Status Future Hold Morphine Sulfate (morphine) 2 mg Q2H PRN IV PAIN Last administered on 12/20/16 03:22; Admin Dose 2 MG; Start 12/09/16 at 09:30 Acetaminophen 650 mg 650 mg Q6H PRN [place] ELEVATED TEMPERATURE Last administered on 12/09/16 17:53; Admin Dose 650 MG; Start 12/09/16 at 17:00 Piperacillin Sod/ Tazobactam Sod (Zosyn 2.25gm/ 50ml (Pmx)) 50 ml @ 100 mls/hr Q12 IVPB Last administered on 01/04/17 08:28; Admin Dose 100 MLS/HR; Start at 21:00 Metoprolol Tartrate (Lopressor) 5 mg Q4H PRN IV HR>100 Last administered on 22:23; Admin Dose 5 MG; Start 12/09/16 at 17:48 Hydralazine HCl (Apresoline) 10 mg Q6H PRN IV SBP>150mm hg Last administered on 12/19/16 08:50; Admin Dose 10 MG; Start 12/11/16 at 10:30 Morphine Sulfate (morphine) 2 mg Q2H PRN IV PAIN LEVEL 4-7; Start 12/13/16 at 10 :00 Pantoprazole (Protonix Tab) 40 mg DAILY@06 PO Last administered on 01/04/17 06 :13; Admin Dose 40 MG; Start 12/23/16 at 06:00 Insulin Glargine (Lantus) 22 unit DAILY@20 SC Last administered on 01/03/17 20 :53; Admin Dose 22 UNIT; Start 12/25/16 at 20:00 Diagnostic Test (Pha) (Accu-Chek) 1 ea 02 XX Last administered on 01/01/17 02: 53; Admin Dose 1 EA; Start 12/30/16 at 02:00 Metoprolol Tartrate (Lopressor) 25 mg BID PO Last administered on 01/03/17 22: 25; Admin Dose 25 MG; Start 12/30/16 at 21:00 Aspirin (Halfprin) 81 mg DAILY PO Last administered on 01/04/17 08:26; Admin Dose 81 MG; Start 12/31/16 at 09:00 Apixaban (Eliquis) 2.5 mg BID PO Last administered on 01/04/17 08:26; Admin Dose 2.5 MG; Start 12/30/16 at 21:00 Amiodarone HCl (Cordarone) 200 mg DAILY PO Last administered on 01/02/17 08:08 ; Admin Dose 200 MG; Start 12/31/16 at 09:00 Collagenase (Santyl) 1 applic DAILY TOP ; Start 01/04/17 at 09:00 TASHIA MCGARRY MD January 04, 2017 09:04
--- NOTE | 2017-01-04 09:53 | PN ---
Date/Time of Note Date/Time of Note DATE: 01/04/17 TIME: 09:51 Assessment/Plan Lines/Catheters IV Catheter Type (from [facility]): Saline Lock [facility] in Place (from [facility]): No Assessment/Plan Chief Complaint/Hosp Course -Bilateral lower extremity atherosclerosis with left first toe plantar ulcer: It seems the patient has developed a first toe plantar ulcer,and diabetic foot infection which may be related to his fall over a week ago. The bilateral lower extremity noninvasive vascular studies demonstrated some infrapopliteal disease as the patient does not have palpable pedal pulses and has been a long time smoker. -No vascular intervention for now. Will follow the wound progress closely and would recommend an angiogram with possible intervention if poor wound healing arises in the near future. Will follow as outpatient -ATN: S/P permanent catheter and likely will need a fistula creation. Will follow as outpt -Optimize vascular status (BP meds, diet, nutrition, exercise, sugar control, antiplatelets, weight loss). -Discussed smoking cessation with the patient and he understands. -Discussed findings, plan and management with the patient with a certified gauge inspector and he understands. -Thank you for allowing us to partake in the care of your patient. Please call with any questions. Problems: Subjective 24 Hr Interval Summary no new vascular events overnight Exam/Review of Systems Vital Signs Vitals Vital Signs Date Time Temp Pulse Resp B/P Pulse Ox O2 Delivery O2 Flow Rate FiO2 01/04/17 09:02 98.7 88 16 118/65 91 01/04/17 08:52 Nasal Cannula 2.0 01/04/17 01:58 30 Intake and Output 01/03/17 01/03/17 01/04/17 15:00 23:00 07:00 Intake Total 450 ml 770 ml 200 ml Output Total 3400 ml Balance -2950 ml 770 ml 200 ml Exam Free Text/Dictation GENERAL: Alert and oriented x3, PULMONARY: Clear to auscultation bilaterally CARDIOVASCULAR: S1, S2 present ABDOMEN: Soft, nontender, nondistended. Bowel sounds positive. EXTREMITIES: Right lower extremity: Palpable femoral pulse, nonpalpable pedal pulse. Motor , sensory intact. Cap refill 3 to 4 seconds. No ulcers identified. Left lower extremity: Palpable femoral pulse, nonpalpable pedal pulse. Motor and sensory intact. Cap refill 3 to 4 seconds. First toe with erythema and edema resolved. Plantar ulcer of 1st metatarsal with callus, No drainage Results Result Diagram: 01/04/17 0525 01/04/17 0525 KAROLINE SHOEMAKER MD January 04, 2017 09:53
[2017-01-04] MEDS: COLLAGENASE 30 GM TUBE TOP SCH (09:55)
--- NOTE | 2017-01-04 10:24 | CONS ---
Date/Time of Note Date/Time of Note DATE: 01/04/17 TIME: 10:21 Assessment/Plan Assessment/Plan Additional Assessment/Plan 1. Atrial fibrillation-currently in SR/ST with PAC's - now in sinus by exam 2. Hypotension-resolved off of pat - off tele now, better 3. Abnormal electrocardiogram with inferolateral T-wave inversions. 4. Respiratory failure-now much better - nasal canula only. 5. Nonhealing toe ulceration-vascular following 6. Peripheral arterial disease by arterial ultrasound of the lower extremities this admission. 7. Diabetes mellitus. 8. Fevers- resolved. 9. Positive troponin-downtrended - no intervention planned. 10.Bradycardia-improved/stable 11.-severe by echo 12.Cardiomyopathy-EF 40-45% by echo/36% by stress with no ischemia but positive scar Consultation Date/Type/Reason Admit Date/Time Dec 02, 2016 at 21:01 Initial Consult Date 12/03/16 Type of Consultation: NEPHROLOGY Referring Provider: VIET PARKER MD 24 HR Interval Summary Free Text/Dictation NO acute e vents - off tele - HD as needed. ROS: No fever, no chills, no nausea, no vomiting, no diarrhea/constipation No recent weight changes No chest pain, no PND, no orthopnea No dizziness, blurred vision No thirst, no heat or cold intolerance Exam/Review of Systems Vital Signs Vitals Vital Signs Date Time Temp Pulse Resp B/P Pulse Ox O2 Delivery O2 Flow Rate FiO2 01/04/17 09:02 98.7 88 16 118/65 91 01/04/17 08:52 Nasal Cannula 2.0 01/04/17 01:58 30 Intake and Output 01/03/17 01/03/17 01/04/17 15:00 23:00 07:00 Intake Total 450 ml 770 ml 200 ml Output Total 3400 ml Balance -2950 ml 770 ml 200 ml Exam General: WN/WD/NAD, AOx 1-2 confused HEENT: Unicetric/atraumatic/EOMI (does not follow commands) NECK: JVD elevated, no thyromegaly Lymph: no lymphadenopathy HEART: regular with no S3, II/ systolic murmur at apex LUNGS: Coarse sounds ABD: soft, NT, ND, +BS : Intact Neuro: non focal SKIN: chronic changes EXT: trace edema Results Result Diagram: 5/23/17 0525 01/04/17 0525 Results 24 hrs Laboratory Tests Test 01/03/17 12:06 01/03/17 17:43 01/03/17 20:45 01/04/17 05:25 Bedside Glucose 131 149 178 White Blood Count 6.6 Red Blood Count 2.54 L Hemoglobin 8.0 L Hematocrit 24.6 L Mean Corpuscular Volume 96.9 Mean Corpuscular Hemoglobin 31.5 Mean Corpuscular Hemoglobin Concent 32.5 Red Cell Distribution Width 14.0 Platelet Count 187 Mean Platelet Volume 10.0 Neutrophils % 76.0 Lymphocytes % 9.4 L Monocytes % 11.5 H Eosinophils % 2.0 Basophils % 0.5 Nucleated Red Blood Cells % 0.0 Neutrophils # 5.1 Lymphocytes # 0.6 L Monocytes # 0.8 Eosinophils # 0.1 Basophils # 0.0 Nucleated Red Blood Cells # 0.0 Sodium Level 142 Potassium Level 3.5 Chloride Level 102 Carbon Dioxide Level 26 Anion Gap 18 H Blood Urea Nitrogen 26 H Creatinine 4.06 H Glucose Level 176 Calcium Level 8.4 Test 01/04/17 08:13 Bedside Glucose 155 Medications Medications Current Medications Ondansetron HCl (Zofran Inj) 4 mg Q6H PRN IV NAUSEA AND/OR VOMITING Last administered on 12/13/16 01:13; Admin Dose 4 MG; Start 12/02/16 at 22:30 Miscellaneous Information 1 ea NOTE XX ; Start 12/02/16 at 23:00 Glucose (Glutose) 15 gm Q15M PRN PO DECREASED GLUCOSE; Start 12/02/16 at 23:00 Glucose (Glutose) 22.5 gm Q15M PRN PO DECREASED GLUCOSE; Start 12/02/16 at 23: 00 Dextrose (D50w Syringe) 25 ml Q15M PRN IV DECREASED GLUCOSE Last administered on 12/10/16 05:52; Admin Dose 25 ML; Start 12/02/16 at 23:00 Dextrose (D50w Syringe) 50 ml Q15M PRN IV DECREASED GLUCOSE; Start 12/02/16 at 23:00 Glucagon (Glucagen) 1 mg Q15M PRN IM DECREASED GLUCOSE; Start 12/02/16 at 23:00 Glucose (Glutose) 15 gm Q15M PRN BUCCAL DECREASED GLUCOSE; Start 12/02/16 at 23 :00 Gabapentin (Neurontin) 800 mg TID PO Last administered on 12/08/16 20:33; Admin Dose 800 MG; Start 12/03/16 at 09:00; Status Future Hold Meclizine HCl (Antivert) 25 mg TID PRN PO dizziness Last administered on 09:37; Admin Dose 25 MG; Start 12/02/16 at 23:00 Terazosin HCl (Hytrin) 5 mg HS PO Last administered on 12/07/16 20:28; Admin Dose 5 MG; Start 12/03/16 at 21:00; Status Future Hold Acetaminophen/ Hydrocodone Bitart ([place] (5/325)) 1 tab Q6H PRN PO PAIN LEVEL 4 -7 Last administered on 12/23/16 22:14; Admin Dose 1 TAB; Start 12/02/16 at 23: 30 Acetaminophen (Tylenol Tab) 650 mg Q6H PRN PO PAIN AND OR ELEVATED TEMP Last administered on 01/02/17 17:47; Admin Dose 650 MG; Start 12/02/16 at 23:30 Docusate Sodium (Colace) 100 mg BID PO Last administered on 12/08/16 20:32; Admin Dose 100 MG; Start 12/03/16 at 09:00; Status Future Hold Zolpidem Tartrate (Ambien) 5 mg HS PRN PO INSOMNIA Last administered on 20:53; Admin Dose 5 MG; Start 12/02/16 at 23:30 Benazepril HCl (Lotensin) 10 mg DAILY PO Last administered on 12/07/16 08:26; Admin Dose 10 MG; Start 12/04/16 at 09:00; Status Future Hold Morphine Sulfate (morphine) 2 mg Q2H PRN IV PAIN Last administered on 12/20/16 03:22; Admin Dose 2 MG; Start 12/09/16 at 09:30 Acetaminophen 650 mg 650 mg Q6H PRN [place] ELEVATED TEMPERATURE Last administered on 12/09/16 17:53; Admin Dose 650 MG; Start 12/09/16 at 17:00 Piperacillin Sod/ Tazobactam Sod (Zosyn 2.25gm/ 50ml (Pmx)) 50 ml @ 100 mls/hr Q12 IVPB Last administered on 01/04/17 08:28; Admin Dose 100 MLS/HR; Start at 21:00 Metoprolol Tartrate (Lopressor) 5 mg Q4H PRN IV HR>100 Last administered on 22:23; Admin Dose 5 MG; Start 12/09/16 at 17:48 Hydralazine HCl (Apresoline) 10 mg Q6H PRN IV SBP>150mm hg Last administered on 12/19/16 08:50; Admin Dose 10 MG; Start 12/11/16 at 10:30 Morphine Sulfate (morphine) 2 mg Q2H PRN IV PAIN LEVEL 4-7; Start 12/13/16 at 10 :00 Pantoprazole (Protonix Tab) 40 mg DAILY@06 PO Last administered on 01/04/17 06 :13; Admin Dose 40 MG; Start 12/23/16 at 06:00 Insulin Glargine (Lantus) 22 unit DAILY@20 SC Last administered on 01/03/17 20 :53; Admin Dose 22 UNIT; Start 12/25/16 at 20:00 Diagnostic Test (Pha) (Accu-Chek) 1 ea 02 XX Last administered on 01/01/17 02: 53; Admin Dose 1 EA; Start 12/30/16 at 02:00 Metoprolol Tartrate (Lopressor) 25 mg BID PO Last administered on 01/03/17 22: 25; Admin Dose 25 MG; Start 12/30/16 at 21:00 Aspirin (Halfprin) 81 mg DAILY PO Last administered on 01/04/17 08:26; Admin Dose 81 MG; Start 12/31/16 at 09:00 Apixaban (Eliquis) 2.5 mg BID PO Last administered on 01/04/17 08:26; Admin Dose 2.5 MG; Start 12/30/16 at 21:00 Amiodarone HCl (Cordarone) 200 mg DAILY PO Last administered on 01/02/17 08:08 ; Admin Dose 200 MG; Start 12/31/16 at 09:00 Collagenase (Santyl) 1 applic DAILY TOP Last administered on 01/04/17 09:55; Admin Dose 1 APPLIC; Start 01/04/17 at 09:00 DAVE NICOLE MD January 04, 2017 10:24
--- NOTE | 2017-01-04 14:38 | CONS ---
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 Blood cultures from HD catheter on 12/13/2016 are negative to date. 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 superficial swab grew inna only - right pleural effusion s/p thoracentesis with .9L removed on 12/16/2016; (Note: there is no pleural fluid cx since orders were placed after Right thoracentesis , and Left thoracentesis was not performed on 12/17/16 d/t insufficient fluid) - funguria - ARANZA, on HD from 12/09/2016 - A fib; now in SR - troponin+ - small nonreversible perfusion abnormality in the inferoapical and inferior carver; EF 36% per Lexiscan 12/24/2016 - severe , EF 40-45% per TTE 12/17/16 - DM - Hgb A1c 8.7% - HTN associated with DM - Episodes of hypercapnic respiratory failure, responding well to BiPAP recommendations: - continue renally dosed pip/tazo (12/03/2016) empirically for diabetic foot infection while in hospital (s/p linezolid); May D/c home on po Levaquin/Flagyl to complete course - ultimately, Pt needs 6 weeks of antibiotics to treat 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 and left fourth proximal phalanx: 12/03/2016 through 01/15/2017 - DC planning in progress management d/w Pt, Pt's son, ALINA Palmer and Dr. Wilson Problems: Consultation Date/Type/Reason Admit Date/Time Dec 02, 2016 at 21:01 Initial Consult Date 12/03/16 Type of Consultation: Infectious Disease Referring Provider: VIET PARKER MD 24 HR Interval Summary Free Text/Dictation Pt with intermittent episodes of confusion; getting HD today per d/w nursing staff. Pt's son reports that confusion is resolved once pt is placed back on Bipap. Pt is currently on Bipap and without complaints. Exam/Review of Systems Vital Signs Vitals Vital Signs Date Time Temp Pulse Resp B/P Pulse Ox O2 Delivery O2 Flow Rate FiO2 01/04/17 14:15 78 01/04/17 13:38 99 30 01/04/17 11:21 Nasal Cannula 2.0 01/04/17 09:02 98.7 16 118/65 Intake and Output 01/03/17 01/03/17 01/04/17 15:00 23:00 07:00 Intake Total 450 ml 770 ml 200 ml Output Total 3400 ml Balance -2950 ml 770 ml 200 ml Exam Constitutional: alert, oriented, well developed, on Bipap with HD in progress in NAD Psych: calm Head: atraumatic, normocephalic Eyes: nl sclera Neck: supple, other (R IJ permacath with no e/o infection) Respiratory: diminished breath sounds No wheezing Cardiovascular: regular rate and rhythm, systolic murmur Gastrointestinal: bowel sounds (present), non-tender, soft, No distended Extremities: other (LUE HL with no e/o infection), No clubbing, No cyanosis Neurological: nl mental status, nl speech (Primarily Danish speaking) Skin: nl turgor, other (See nurse note and photos in chart for details; stage 2 sacrococcyx ulcer; Left great toe diabetic dry ulcer with eschar) Results Result Diagram: 01/04/17 0525 01/04/17 0525 Results 24 hrs Laboratory Tests Test 01/03/17 17:43 01/03/17 20:45 01/04/17 05:25 01/04/17 08:13 Bedside Glucose 149 178 155 White Blood Count 6.6 Red Blood Count 2.54 L Hemoglobin 8.0 L Hematocrit 24.6 L Mean Corpuscular Volume 96.9 Mean Corpuscular Hemoglobin 31.5 Mean Corpuscular Hemoglobin Concent 32.5 Red Cell Distribution Width 14.0 Platelet Count 187 Mean Platelet Volume 10.0 Neutrophils % 76.0 Lymphocytes % 9.4 L Monocytes % 11.5 H Eosinophils % 2.0 Basophils % 0.5 Nucleated Red Blood Cells % 0.0 Neutrophils # 5.1 Lymphocytes # 0.6 L Monocytes # 0.8 Eosinophils # 0.1 Basophils # 0.0 Nucleated Red Blood Cells # 0.0 Sodium Level 142 Potassium Level 3.5 Chloride Level 102 Carbon Dioxide Level 26 Anion Gap 18 H Blood Urea Nitrogen 26 H Creatinine 4.06 H Glucose Level 176 Calcium Level 8.4 Test 01/04/17 12:18 Bedside Glucose 218 Medications Medications Current Medications Ondansetron HCl (Zofran Inj) 4 mg Q6H PRN IV NAUSEA AND/OR VOMITING Last administered on 12/13/16 01:13; Admin Dose 4 MG; Start 12/02/16 at 22:30 Miscellaneous Information 1 ea NOTE XX ; Start 12/02/16 at 23:00 Glucose (Glutose) 15 gm Q15M PRN PO DECREASED GLUCOSE; Start 12/02/16 at 23:00 Glucose (Glutose) 22.5 gm Q15M PRN PO DECREASED GLUCOSE; Start 12/02/16 at 23: 00 Dextrose (D50w Syringe) 25 ml Q15M PRN IV DECREASED GLUCOSE Last administered on 12/10/16 05:52; Admin Dose 25 ML; Start 12/02/16 at 23:00 Dextrose (D50w Syringe) 50 ml Q15M PRN IV DECREASED GLUCOSE; Start 12/02/16 at 23:00 Glucagon (Glucagen) 1 mg Q15M PRN IM DECREASED GLUCOSE; Start 12/02/16 at 23:00 Glucose (Glutose) 15 gm Q15M PRN BUCCAL DECREASED GLUCOSE; Start 12/02/16 at 23 :00 Gabapentin (Neurontin) 800 mg TID PO Last administered on 12/08/16 20:33; Admin Dose 800 MG; Start 12/03/16 at 09:00; Status Future Hold Meclizine HCl (Antivert) 25 mg TID PRN PO dizziness Last administered on 09:37; Admin Dose 25 MG; Start 12/02/16 at 23:00 Terazosin HCl (Hytrin) 5 mg HS PO Last administered on 12/07/16 20:28; Admin Dose 5 MG; Start 12/03/16 at 21:00; Status Future Hold Acetaminophen/ Hydrocodone Bitart ([place] (5/325)) 1 tab Q6H PRN PO PAIN LEVEL 4 -7 Last administered on 12/23/16 22:14; Admin Dose 1 TAB; Start 12/02/16 at 23: 30 Acetaminophen (Tylenol Tab) 650 mg Q6H PRN PO PAIN AND OR ELEVATED TEMP Last administered on 01/02/17 17:47; Admin Dose 650 MG; Start 12/02/16 at 23:30 Docusate Sodium (Colace) 100 mg BID PO Last administered on 12/08/16 20:32; Admin Dose 100 MG; Start 12/03/16 at 09:00; Status Future Hold Zolpidem Tartrate (Ambien) 5 mg HS PRN PO INSOMNIA Last administered on 20:53; Admin Dose 5 MG; Start 12/02/16 at 23:30 Benazepril HCl (Lotensin) 10 mg DAILY PO Last administered on 12/07/16 08:26; Admin Dose 10 MG; Start 12/04/16 at 09:00; Status Future Hold Morphine Sulfate (morphine) 2 mg Q2H PRN IV PAIN Last administered on 12/20/16 03:22; Admin Dose 2 MG; Start 12/09/16 at 09:30 Acetaminophen 650 mg 650 mg Q6H PRN [place] ELEVATED TEMPERATURE Last administered on 12/09/16 17:53; Admin Dose 650 MG; Start 12/09/16 at 17:00 Piperacillin Sod/ Tazobactam Sod (Zosyn 2.25gm/ 50ml (Pmx)) 50 ml @ 100 mls/hr Q12 IVPB Last administered on 01/04/17 08:28; Admin Dose 100 MLS/HR; Start at 21:00 Metoprolol Tartrate (Lopressor) 5 mg Q4H PRN IV HR>100 Last administered on 22:23; Admin Dose 5 MG; Start 12/09/16 at 17:48 Hydralazine HCl (Apresoline) 10 mg Q6H PRN IV SBP>150mm hg Last administered on 12/19/16 08:50; Admin Dose 10 MG; Start 12/11/16 at 10:30 Morphine Sulfate (morphine) 2 mg Q2H PRN IV PAIN LEVEL 4-7; Start 12/13/16 at 10 :00 Pantoprazole (Protonix Tab) 40 mg DAILY@06 PO Last administered on 01/04/17 06 :13; Admin Dose 40 MG; Start 12/23/16 at 06:00 Insulin Glargine (Lantus) 22 unit DAILY@20 SC Last administered on 01/03/17 20 :53; Admin Dose 22 UNIT; Start 12/25/16 at 20:00 Diagnostic Test (Pha) (Accu-Chek) 1 ea 02 XX Last administered on 01/01/17 02: 53; Admin Dose 1 EA; Start 12/30/16 at 02:00 Metoprolol Tartrate (Lopressor) 25 mg BID PO Last administered on 01/03/17 22: 25; Admin Dose 25 MG; Start 12/30/16 at 21:00 Aspirin (Halfprin) 81 mg DAILY PO Last administered on 01/04/17 08:26; Admin Dose 81 MG; Start 12/31/16 at 09:00 Apixaban (Eliquis) 2.5 mg BID PO Last administered on 01/04/17 08:26; Admin Dose 2.5 MG; Start 12/30/16 at 21:00 Amiodarone HCl (Cordarone) 200 mg DAILY PO Last administered on 01/02/17 08:08 ; Admin Dose 200 MG; Start 12/31/16 at 09:00 Collagenase (Santyl) 1 applic DAILY TOP Last administered on 01/04/17 09:55; Admin Dose 1 APPLIC; Start 01/04/17 at 09:00 YUMIKO ALATORRE NP January 04, 2017 14:38
--- NOTE | 2017-01-04 15:03 | RADRPT ---
PROCEDURE: XR Chest. CLINICAL INDICATION: Shortness of breath. TECHNIQUE: Single frontal view. COMPARISON: 01/03/2017. FINDINGS: The tunneled right internal jugular vein dialysis catheter remains in satisfactory position. There is bilateral pulmonary airspace and interstitial disease consistent with pulmonary edema, unchanged. The heart is enlarged. There is calcification in the aorta consistent with atherosclerosis. There are small to moderate bilateral pleural effusions. There is no pneumothorax. IMPRESSION: 1. No change from 01/03/2017. RPTAT: QQ .Bruce Zurita MD, MD Date Time Electronically viewed and signed by .Bruce Zurita MD, MD on 01/04/2017 15:03 .R/
--- NOTE | 2017-01-04 17:16 | PN ---
Date/Time of Note Date/Time of Note DATE: 01/04/17 TIME: 17:08 Assessment/Plan VTE Prophylaxis VTE Prophylaxis Intervention: SCD's Lines/Catheters IV C[facility]ter Type (from [facility] [place] Urinary Cath still in place: No Assessment/Plan Chief Complaint/Hosp Course Patient with periaortic lethargy, Ativan was DC'd yesterday, continue to monitor neurological status. Remains hemodynamically stable. Assessment/Plan - Acute kidney injury secondary to ATN. Continued on hemodialysis. Dr. Remy is following in nephrology consultation. - Acute respiratory failure secondary to pulmonary edema, resolved. Patient continues on BiPAP overnight. Dr. Alvarez is following from pulmonology standpoint. - Cellulitis of left foot, 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 and left fourth proximal phalanx per bone scan. Continue antibiotics per ID. - Bilateral pleural effusion, this post right sided thoracentesis with removal of 900 cc of fluid. - Acute to subacute right occipital lobe ischemic infarct per CT, Dr Morris is following in neurology consultation. - Paroxysmal atrial fibrillation and positive troponin. Dr. Cobian is following and cardiology consultation. Status post Lexiscan on 12/24. - Fungemia, status post treatment. Dr. Rashaun pritchard is following in infection disease consultation. - Diabetic foot ulcer of the left foot, Dr Lin is following in podiatry consultation. - Aortic stenosis - Diastolic dysfunction congestive heart failure with preserved ejection fraction of 60%. - DM, Hgb A1c is 8.7, continue Lantus and pre-meal NovoLog and NovoLog per sliding scale. -Traumatic hematuria, resolved. Dr. Grey urology consult is appreciated. Further recommendations based on clinical course. Plan of care discussed with Dr. Heredia. Problems: Exam/Review of Systems Vital Signs Vitals Vital Signs Date Time Temp Pulse Resp B/P Pulse Ox O2 Delivery O2 Flow Rate FiO2 01/04/17 15:15 80 01/04/17 15:15 18 01/04/17 13:38 99 30 01/04/17 11:21 Nasal Cannula 2.0 01/04/17 09:02 98.7 118/65 Intake and Output 01/03/17 01/03/17 01/04/17 15:00 23:00 07:00 Intake Total 450 ml 770 ml 200 ml Output Total 3400 ml Balance -2950 ml 770 ml 200 ml Exam Constitutional: awake, alert Psych: no complaints Head: atraumatic, normocephalic Eyes: nl conjunctiva ENMT: nl external ears & nose Neck: non-tender, supple Respiratory: clear to auscultation, normal air movement Cardiovascular: nl pulses, regular rate and rhythm, systolic murmur Gastrointestinal: non-tender, soft Musculoskeletal: nl extremities to inspection Extremities: normal pulses Neurological: alert *3 Skin: nl turgor, left big toe ulcer. R IJ HD cath Results Result Diagram: 01/04/1752401/04/17524 Results 24 hrs Laboratory Tests Test 01/03/17 17:43 01/03/17 20:45 01/04/17 05:25 01/04/17 08:13 Bedside Glucose 149 178 155 White Blood Count 6.6 Red Blood Count 2.54 L Hemoglobin 8.0 L Hematocrit 24.6 L Mean Corpuscular Volume 96.9 Mean Corpuscular Hemoglobin 31.5 Mean Corpuscular Hemoglobin Concent 32.5 Red Cell Distribution Width 14.0 Platelet Count 187 Mean Platelet Volume 10.0 Neutrophils % 76.0 Lymphocytes % 9.4 L Monocytes % 11.5 H Eosinophils % 2.0 Basophils % 0.5 Nucleated Red Blood Cells % 0.0 Neutrophils # 5.1 Lymphocytes # 0.6 L Monocytes # 0.8 Eosinophils # 0.1 Basophils # 0.0 Nucleated Red Blood Cells # 0.0 Sodium Level 142 Potassium Level 3.5 Chloride Level 102 Carbon Dioxide Level 26 Anion Gap 18 H Blood Urea Nitrogen 26 H Creatinine 4.06 H Glucose Level 176 Calcium Level 8.4 Test 01/04/17 12:18 Bedside Glucose 218 Medications Medications Current Medications Ondansetron HCl (Zofran Inj) 4 mg Q6H PRN IV NAUSEA AND/OR VOMITING Last administered on 12/13/16 01:13; Admin Dose 4 MG; Start 12/02/16 at 22:30 Miscellaneous Information 1 ea NOTE XX ; Start 12/02/16 at 23:00 Glucose (Glutose) 15 gm Q15M PRN PO DECREASED GLUCOSE; Start 12/02/16 at 23:00 Glucose (Glutose) 22.5 gm Q15M PRN PO DECREASED GLUCOSE; Start 12/02/16 at 23: 00 Dextrose (D50w Syringe) 25 ml Q15M PRN IV DECREASED GLUCOSE Last administered on 12/10/16 05:52; Admin Dose 25 ML; Start 12/02/16 at 23:00 Dextrose (D50w Syringe) 50 ml Q15M PRN IV DECREASED GLUCOSE; Start 12/02/16 at 23:00 Glucagon (Glucagen) 1 mg Q15M PRN IM DECREASED GLUCOSE; Start 12/02/16 at 23:00 Glucose (Glutose) 15 gm Q15M PRN BUCCAL DECREASED GLUCOSE; Start 12/02/16 at 23 :00 Gabapentin (Neurontin) 800 mg TID PO Last administered on 12/08/16 20:33; Admin Dose 800 MG; Start 12/03/16 at 09:00; Status Future Hold Meclizine HCl (Antivert) 25 mg TID PRN PO dizziness Last administered on 09:37; Admin Dose 25 MG; Start 12/02/16 at 23:00 Terazosin HCl (Hytrin) 5 mg HS PO Last administered on 12/07/16 20:28; Admin Dose 5 MG; Start 12/03/16 at 21:00; Status Future Hold Acetaminophen/ Hydrocodone Bitart ([place] (5/325)) 1 tab Q6H PRN PO PAIN LEVEL 4 -7 Last administered on 12/23/16 22:14; Admin Dose 1 TAB; Start 12/02/16 at 23: 30 Acetaminophen (Tylenol Tab) 650 mg Q6H PRN PO PAIN AND OR ELEVATED TEMP Last administered on 01/02/17 17:47; Admin Dose 650 MG; Start 12/02/16 at 23:30 Docusate Sodium (Colace) 100 mg BID PO Last administered on 12/08/16 20:32; Admin Dose 100 MG; Start 12/03/16 at 09:00; Status Future Hold Zolpidem Tartrate (Ambien) 5 mg HS PRN PO INSOMNIA Last administered on 20:53; Admin Dose 5 MG; Start 12/02/16 at 23:30 Benazepril HCl (Lotensin) 10 mg DAILY PO Last administered on 12/07/16 08:26; Admin Dose 10 MG; Start 12/04/16 at 09:00; Status Future Hold Morphine Sulfate (morphine) 2 mg Q2H PRN IV PAIN Last administered on 12/20/16 03:22; Admin Dose 2 MG; Start 12/09/16 at 09:30 Acetaminophen 650 mg 650 mg Q6H PRN [place] ELEVATED TEMPERATURE Last administered on 12/09/16 17:53; Admin Dose 650 MG; Start 12/09/16 at 17:00 Piperacillin Sod/ Tazobactam Sod (Zosyn 2.25gm/ 50ml (Pmx)) 50 ml @ 100 mls/hr Q12 IVPB Last administered on 01/04/17 08:28; Admin Dose 100 MLS/HR; Start at 21:00 Metoprolol Tartrate (Lopressor) 5 mg Q4H PRN IV HR>100 Last administered on 22:23; Admin Dose 5 MG; Start 12/09/16 at 17:48 Hydralazine HCl (Apresoline) 10 mg Q6H PRN IV SBP>150mm hg Last administered on 12/19/16 08:50; Admin Dose 10 MG; Start 12/11/16 at 10:30 Morphine Sulfate (morphine) 2 mg Q2H PRN IV PAIN LEVEL 4-7; Start 12/13/16 at 10 :00 Pantoprazole (Protonix Tab) 40 mg DAILY@06 PO Last administered on 01/04/17 06 :13; Admin Dose 40 MG; Start 12/23/16 at 06:00 Insulin Glargine (Lantus) 22 unit DAILY@20 SC Last administered on 01/03/17 20 :53; Admin Dose 22 UNIT; Start 12/25/16 at 20:00 Diagnostic Test (Pha) (Accu-Chek) 1 ea 02 XX Last administered on 01/01/17 02: 53; Admin Dose 1 EA; Start 12/30/16 at 02:00 Metoprolol Tartrate (Lopressor) 25 mg BID PO Last administered on 01/03/17 22: 25; Admin Dose 25 MG; Start 12/30/16 at 21:00 Aspirin (Halfprin) 81 mg DAILY PO Last administered on 01/04/17 08:26; Admin Dose 81 MG; Start 12/31/16 at 09:00 Apixaban (Eliquis) 2.5 mg BID PO Last administered on 01/04/17 08:26; Admin Dose 2.5 MG; Start 12/30/16 at 21:00 Amiodarone HCl (Cordarone) 200 mg DAILY PO Last administered on 01/02/17 08:08 ; Admin Dose 200 MG; Start 12/31/16 at 09:00 Collagenase (Santyl) 1 applic DAILY TOP Last administered on 01/04/17 09:55; Admin Dose 1 APPLIC; Start 01/04/17 at 09:00 KIMBERLY NOYOLA January 04, 2017 17:16
[2017-01-04] MEDS: INSULIN GLARGINE [LANtus] 3 ML PEN SC SCH (21:00)
[2017-01-05] VITALS (8 sets, daily range): BP systolic 105–123; BP diastolic 58–61; PULSE 79–94; RESP 18
[2017-01-05] MEDS: ACCU-CHEK XX SCH (02:00)
[2017-01-05] MEDS: PANTOPRAZOLE (EC) 40 MG TAB PO SCH (05:06)
[2017-01-05 05:56] LABS: ADD SCAN DIFF NO
[2017-01-05 05:59] LABS: BASOPHILS % 0.5 % (0.0-2.0); EOSINOPHILS # 0.2 10^3/ul (0.0-0.5); EOSINOPHILS % 2.2 % (0.0-7.0); HEMATOCRIT 24.8 % (42.0-52.0); HEMOGLOBIN 7.9 g/dl (14.0-18.0); LYMPHOCYTES % 13.6 % (15.0-51.0); MEAN CORPUSCULAR HEMOGLOBIN 30.4 pg (29.0-33.0); MEAN CORPUSCULAR HGB CONC 31.9 g/dl (32.0-37.0); MEAN CORPUSCULAR VOLUME 95.4 fl (82.0-101.0); MEAN PLATELET VOLUME 10.1 fl (7.4-10.4); MONOCYTE # 0.9 10^3/ul (0.3-0.9); MONOCYTES % 12.3 % (0.0-11.0); NEUTROPHIL # 5.2 10^3/ul (1.6-7.5); NEUTROPHILS % 70.9 % (39.0-77.0); PLATELET COUNT 186 10^3/UL (140-415); RED CELL DISTRIBUTION WIDTH 14.3 % (11.5-14.5); WHITE BLOOD COUNT 7.4 10^3/ul (4.8-10.8)
[2017-01-05 06:29] LABS: POTASSIUM 3.4 mmol/L (3.5-5.1)
[2017-01-05 06:32] LABS: CALCIUM 8.5 mg/dl (8.4-10.2); CREATININE 3.46 mg/dl (0.61-1.24)
[2017-01-05] MEDS: INSULIN ASPART [NOVOLOG] 3 ML PEN SC SCH ×7 (07:54→21:14)
[2017-01-05] MEDS: ALBUTEROL/IPRATROPIUM (NEB) 3 ML AMP HHN SCH ×3 (08:30→19:19)
[2017-01-05] MEDS: METOPROLOL 25 MG TAB PO SCH ×2 (09:00→21:16)
[2017-01-05] MEDS: COLLAGENASE 30 GM TUBE TOP SCH (09:00)
[2017-01-05] MEDS: PIPER-TAZO 2.25 GM (PMX) 50 ML IVPB SCH ×2 (09:53→21:15)
[2017-01-05] MEDS: APIXABAN 5 MG TABLET PO SCH ×2 (09:53→21:15)
[2017-01-05] MEDS: ASPIRIN (EC) 81 MG TAB PO SCH (09:53)
[2017-01-05] MEDS: AMIODARONE 200 MG TAB PO SCH (09:57)
--- NOTE | 2017-01-05 10:49 | PN ---
DATE: 01/05/2017 SUBJECTIVE: The patient did have a prior hematuria because of pulling out the [place] catheter. Pres ently, the patient is agitated and restless in bed, but he does not have any bleeding from the ureth ra. OBJECTIVE VITAL SIGNS: His temperature is 98.2, blood pressure 105/58, pulse is 86, respiration 18. GENITOURINARY: External genitalia are normal. There is no bleeding from the urethra. LABORATORY DATA: His CBC shows a white count of 7.4, hemoglobin 7.9, hematocrit 24.8, BUN is 19, cr eatinine 3.46. IMPRESSION: Hematuria, traumatic, and that has since cleared. From a urological standpoint, just jett mayen. Dictated By: JOE KUMAR/MICHELLE Conf#: [id number] DID#: [id number]
--- NOTE | 2017-01-05 13:36 | CONS ---
Date/Time of Note Date/Time of Note DATE: 01/05/17 TIME: 13:30 Assessment/Plan Assessment/Plan Chief Complaint/Hosp Course IMPRESSION: 1. Atrial fibrillation-currently in SR/ST with PAC's 2. Hypotension-resolved off of pat 3. Abnormal electrocardiogram with inferolateral T-wave inversions. 4. Respiratory failure-s/p intubation and remains 5. Nonhealing toe ulceration-vascular following 6. Peripheral arterial disease by arterial ultrasound of the lower extremities this admission. 7. Diabetes mellitus. 8. Fevers. 9. Positive troponin-downtrended 10.Bradycardia-improved/stable 11.-severe by echo 12.Cardiomyopathy-EF 40-45% by echo/36% by stress with no ischemia but positive scar Recc: -Now on med-surg -serial ecg -HD for volume removal as necessary/nephrology following -Continue baby asa/eliquis -Continue PO amio in attempt to maintain SR -low dose BB as tolerated only following HR closely -LHC/RHC likey when patient creatnine stable or definately to be continue of [facility] to truly assess degree of -Will hold on afterload reduction given severe and thus fixed afterload at valve orifice Problems: Consultation Date/Type/Reason Admit Date/Time Dec 02, 2016 at 21:01 Initial Consult Date 12/03/16 Type of Consultation: Cardiology Reason for Consultation CHF/ Referring Provider: VIET PARKER MD Exam/Review of Systems Vital Signs Vitals Vital Signs Date Time Temp Pulse Resp B/P Pulse Ox O2 Delivery O2 Flow Rate FiO2 01/05/17 08:33 73 18 98 Nasal Cannula 2.0 01/05/17 07:20 98.2 105/58 01/05/17 01:51 30 Intake and Output 01/04/17 01/04/17 01/05/17 15:00 23:00 07:00 Intake Total 50 ml 1710 ml 680 ml Output Total 1800 ml Balance 50 ml -90 ml 680 ml Exam Review of Systems: CONSTITUTIONAL: No fevers, chills. PULMONARY: No sob CARDIOVASCULAR: No chest pain/palpitations GASTROINTESTINAL: No nausea/vomiting. GENITOURINARY: No hematuria/dysuria. MUSCULOSKELETAL: No myagias/arthalgias. PSYCHIATRIC: The patient denies depression. NEUROLOGIC: No weakness Constitutional: alert Psych: no complaints Head: normocephalic ENMT: mucosa pink and moist Neck: jvd (9 cm water), supple Respiratory: diminished breath sounds (at bases/B) Cardiovascular: regular rate and rhythm Gastrointestinal: non-tender, soft Musculoskeletal: muscle tone (normal) Extremities: edema (trace/b) Results Result Diagram: 01/05/17 0501/05/17 05 Results 24 hrs Laboratory Tests Test 01/04/17 17:48 01/04/17 20:58 01/05/17 05:26 01/05/17 07:45 Bedside Glucose 212 117 161 White Blood Count 7.4 Red Blood Count 2.60 L Hemoglobin 7.9 L Hematocrit 24.8 L Mean Corpuscular Volume 95.4 Mean Corpuscular Hemoglobin 30.4 Mean Corpuscular Hemoglobin Concent 31.9 L Red Cell Distribution Width 14.3 Platelet Count 186 Mean Platelet Volume 10.1 Neutrophils % 70.9 Lymphocytes % 13.6 L Monocytes % 12.3 H Eosinophils % 2.2 Basophils % 0.5 Nucleated Red Blood Cells % 0.0 Neutrophils # 5.2 Lymphocytes # 1.0 Monocytes # 0.9 Eosinophils # 0.2 Basophils # 0.0 Nucleated Red Blood Cells # 0.0 Sodium Level 139 Potassium Level 3.4 L Chloride Level 99 Carbon Dioxide Level 27 Anion Gap 16 Blood Urea Nitrogen 19 Creatinine 3.46 H Glucose Level 145 Calcium Level 8.5 Test 01/05/17 11:59 Bedside Glucose 172 Medications Medications Current Medications Ondansetron HCl (Zofran Inj) 4 mg Q6H PRN IV NAUSEA AND/OR VOMITING Last administered on 12/13/16 01:13; Admin Dose 4 MG; Start 12/02/16 at 22:30 Miscellaneous Information 1 ea NOTE XX ; Start 12/02/16 at 23:00 Glucose (Glutose) 15 gm Q15M PRN PO DECREASED GLUCOSE; Start 12/02/16 at 23:00 Glucose (Glutose) 22.5 gm Q15M PRN PO DECREASED GLUCOSE; Start 12/02/16 at 23: 00 Dextrose (D50w Syringe) 25 ml Q15M PRN IV DECREASED GLUCOSE Last administered on 12/10/16 05:52; Admin Dose 25 ML; Start 12/02/16 at 23:00 Dextrose (D50w Syringe) 50 ml Q15M PRN IV DECREASED GLUCOSE; Start 12/02/16 at 23:00 Glucagon (Glucagen) 1 mg Q15M PRN IM DECREASED GLUCOSE; Start 12/02/16 at 23:00 Glucose (Glutose) 15 gm Q15M PRN BUCCAL DECREASED GLUCOSE; Start 12/02/16 at 23 :00 Gabapentin (Neurontin) 800 mg TID PO Last administered on 12/08/16 20:33; Admin Dose 800 MG; Start 12/03/16 at 09:00; Status Future Hold Meclizine HCl (Antivert) 25 mg TID PRN PO dizziness Last administered on 09:37; Admin Dose 25 MG; Start 12/02/16 at 23:00 Terazosin HCl (Hytrin) 5 mg HS PO Last administered on 12/07/16 20:28; Admin Dose 5 MG; Start 12/03/16 at 21:00; Status Future Hold Acetaminophen/ Hydrocodone Bitart ([place] (5/325)) 1 tab Q6H PRN PO PAIN LEVEL 4 -7 Last administered on 12/23/16 22:14; Admin Dose 1 TAB; Start 12/02/16 at 23: 30 Acetaminophen (Tylenol Tab) 650 mg Q6H PRN PO PAIN AND OR ELEVATED TEMP Last administered on 01/02/17 17:47; Admin Dose 650 MG; Start 12/02/16 at 23:30 Docusate Sodium (Colace) 100 mg BID PO Last administered on 12/08/16 20:32; Admin Dose 100 MG; Start 12/03/16 at 09:00; Status Future Hold Zolpidem Tartrate (Ambien) 5 mg HS PRN PO INSOMNIA Last administered on 20:53; Admin Dose 5 MG; Start 12/02/16 at 23:30 Benazepril HCl (Lotensin) 10 mg DAILY PO Last administered on 12/07/16 08:26; Admin Dose 10 MG; Start 12/04/16 at 09:00; Status Future Hold Morphine Sulfate (morphine) 2 mg Q2H PRN IV PAIN Last administered on 12/20/16 03:22; Admin Dose 2 MG; Start 12/09/16 at 09:30 Acetaminophen 650 mg 650 mg Q6H PRN [place] ELEVATED TEMPERATURE Last administered on 12/09/16 17:53; Admin Dose 650 MG; Start 12/09/16 at 17:00 Piperacillin Sod/ Tazobactam Sod (Zosyn 2.25gm/ 50ml (Pmx)) 50 ml @ 100 mls/hr Q12 IVPB Last administered on 01/05/17 09:53; Admin Dose 100 MLS/HR; Start at 21:00 Metoprolol Tartrate (Lopressor) 5 mg Q4H PRN IV HR>100 Last administered on 22:23; Admin Dose 5 MG; Start 12/09/16 at 17:48 Hydralazine HCl (Apresoline) 10 mg Q6H PRN IV SBP>150mm hg Last administered on 12/19/16 08:50; Admin Dose 10 MG; Start 12/11/16 at 10:30 Morphine Sulfate (morphine) 2 mg Q2H PRN IV PAIN LEVEL 4-7; Start 12/13/16 at 10 :00 Pantoprazole (Protonix Tab) 40 mg DAILY@06 PO Last administered on 01/05/17 05 :06; Admin Dose 40 MG; Start 12/23/16 at 06:00 Insulin Glargine (Lantus) 22 unit DAILY@20 SC Last administered on 01/04/17 21 :00; Admin Dose 22 UNIT; Start 12/25/16 at 20:00 Diagnostic Test (Pha) (Accu-Chek) 1 ea 02 XX Last administered on 01/01/17 02: 53; Admin Dose 1 EA; Start 12/30/16 at 02:00 Metoprolol Tartrate (Lopressor) 25 mg BID PO Last administered on 01/04/17 20: 51; Admin Dose 25 MG; Start 12/30/16 at 21:00 Aspirin (Halfprin) 81 mg DAILY PO Last administered on 01/05/17 09:53; Admin Dose 81 MG; Start 12/31/16 at 09:00 Apixaban (Eliquis) 2.5 mg BID PO Last administered on 01/05/17 09:53; Admin Dose 2.5 MG; Start 12/30/16 at 21:00 Amiodarone HCl (Cordarone) 200 mg DAILY PO Last administered on 01/05/17 09:57 ; Admin Dose 200 MG; Start 12/31/16 at 09:00 Collagenase (Santyl) 1 applic DAILY TOP Last administered on 01/04/17t 09:55; Admin Dose 1 APPLIC; Start 01/04/17 at 09:00 VICENTE LESLIE January 05, 2017 13:36
--- NOTE | 2017-01-05 16:41 | PN ---
Date/Time of Note Date/Time of Note DATE: 01/05/17 TIME: 16:37 Assessment/Plan VTE Prophylaxis VTE Prophylaxis Intervention: SCD's Lines/Catheters [facility] PERMACATH Urinary Cath still in place: No Assessment/Plan Chief Complaint/Hosp Course Patient is more awake today, denies shortness of breath denies chest pain, hemoglobin 7.9, will transfuse blood with next hemodialysis, continue physical therapy. Assessment/Plan - Acute kidney injury secondary to ATN. Continued on hemodialysis. Dr. Remy is following in nephrology consultation. - Acute respiratory failure secondary to pulmonary edema, resolved. Patient continues on BiPAP overnight. Dr. Alvarez is following from pulmonology standpoint. - Cellulitis of left foot, 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 and left fourth proximal phalanx per bone scan. Continue antibiotics per ID. - Bilateral pleural effusion, this post right sided thoracentesis with removal of 900 cc of fluid. - Acute to subacute right occipital lobe ischemic infarct per CT, Dr Morris is following in neurology consultation. - Paroxysmal atrial fibrillation and positive troponin. Dr. Cobian is following and cardiology consultation. Status post Lexiscan on 12/24 with no ischemia but positive scar. - Fungemia, status post treatment. Dr. Rashaun pritchard is following in infection disease consultation. - Diabetic foot ulcer of the left foot, Dr Lin is following in podiatry consultation. - Aortic stenosis - Diastolic dysfunction congestive heart failure with preserved ejection fraction of 60%. - DM, Hgb A1c is 8.7, continue Lantus and pre-meal NovoLog and NovoLog per sliding scale. -S/p traumatic hematuria, Dr. Grey urology consult is following. Further recommendations based on clinical course. Plan of care discussed with Dr. Heredia. Problems: Exam/Review of Systems Vital Signs Vitals Vital Signs Date Time Temp Pulse Resp B/P Pulse Ox O2 Delivery O2 Flow Rate FiO2 01/05/17 14:39 88 18 98 Nasal Cannula 2.0 01/05/17 07:20 98.2 105/58 01/05/17 01:51 30 Intake and Output 01/04/17 01/04/17 01/05/17 15:00 23:00 07:00 Intake Total 50 ml 1710 ml 680 ml Output Total 1800 ml Balance 50 ml -90 ml 680 ml Exam Constitutional: awake, alert Psych: no complaints Head: atraumatic, normocephalic Eyes: nl conjunctiva ENMT: nl external ears & nose Neck: non-tender, supple Respiratory: clear to auscultation, normal air movement Cardiovascular: nl pulses, regular rate and rhythm, systolic murmur Gastrointestinal: non-tender, soft Musculoskeletal: nl extremities to inspection Extremities: normal pulses Neurological: alert *3 Skin: nl turgor, left big toe ulcer. R IJ HD cath Results Result Diagram: 01/05/1752501/05/17 05 Results 24 hrs Laboratory Tests Test 01/04/17 17:48 01/04/17 20:58 01/05/17 05:26 01/05/17 07:45 Bedside Glucose 212 117 161 White Blood Count 7.4 Red Blood Count 2.60 L Hemoglobin 7.9 L Hematocrit 24.8 L Mean Corpuscular Volume 95.4 Mean Corpuscular Hemoglobin 30.4 Mean Corpuscular Hemoglobin Concent 31.9 L Red Cell Distribution Width 14.3 Platelet Count 186 Mean Platelet Volume 10.1 Neutrophils % 70.9 Lymphocytes % 13.6 L Monocytes % 12.3 H Eosinophils % 2.2 Basophils % 0.5 Nucleated Red Blood Cells % 0.0 Neutrophils # 5.2 Lymphocytes # 1.0 Monocytes # 0.9 Eosinophils # 0.2 Basophils # 0.0 Nucleated Red Blood Cells # 0.0 Sodium Level 139 Potassium Level 3.4 L Chloride Level 99 Carbon Dioxide Level 27 Anion Gap 16 Blood Urea Nitrogen 19 Creatinine 3.46 H Glucose Level 145 Calcium Level 8.5 Test 01/05/17 11:59 Bedside Glucose 172 Medications Medications Current Medications Ondansetron HCl (Zofran Inj) 4 mg Q6H PRN IV NAUSEA AND/OR VOMITING Last administered on 12/13/16 01:13; Admin Dose 4 MG; Start 12/02/16 at 22:30 Miscellaneous Information 1 ea NOTE XX ; Start 12/02/16 at 23:00 Glucose (Glutose) 15 gm Q15M PRN PO DECREASED GLUCOSE; Start 12/02/16 at 23:00 Glucose (Glutose) 22.5 gm Q15M PRN PO DECREASED GLUCOSE; Start 12/02/16 at 23: 00 Dextrose (D50w Syringe) 25 ml Q15M PRN IV DECREASED GLUCOSE Last administered on 12/10/16 05:52; Admin Dose 25 ML; Start 12/02/16 at 23:00 Dextrose (D50w Syringe) 50 ml Q15M PRN IV DECREASED GLUCOSE; Start 12/02/16 at 23:00 Glucagon (Glucagen) 1 mg Q15M PRN IM DECREASED GLUCOSE; Start 12/02/16 at 23:00 Glucose (Glutose) 15 gm Q15M PRN BUCCAL DECREASED GLUCOSE; Start 12/02/16 at 23 :00 Gabapentin (Neurontin) 800 mg TID PO Last administered on 12/08/16 20:33; Admin Dose 800 MG; Start 12/03/16 at 09:00; Status Future Hold Meclizine HCl (Antivert) 25 mg TID PRN PO dizziness Last administered on 09:37; Admin Dose 25 MG; Start 12/02/16 at 23:00 Terazosin HCl (Hytrin) 5 mg HS PO Last administered on 12/07/16 20:28; Admin Dose 5 MG; Start 12/03/16 at 21:00; Status Future Hold Acetaminophen/ Hydrocodone Bitart ([place] (5/325)) 1 tab Q6H PRN PO PAIN LEVEL 4 -7 Last administered on 12/23/16 22:14; Admin Dose 1 TAB; Start 12/02/16 at 23: 30 Acetaminophen (Tylenol Tab) 650 mg Q6H PRN PO PAIN AND OR ELEVATED TEMP Last administered on 01/02/17 17:47; Admin Dose 650 MG; Start 12/02/16 at 23:30 Docusate Sodium (Colace) 100 mg BID PO Last administered on 12/08/16 20:32; Admin Dose 100 MG; Start 12/03/16 at 09:00; Status Future Hold Zolpidem Tartrate (Ambien) 5 mg HS PRN PO INSOMNIA Last administered on 20:53; Admin Dose 5 MG; Start 12/02/16 at 23:30 Benazepril HCl (Lotensin) 10 mg DAILY PO Last administered on 12/07/16 08:26; Admin Dose 10 MG; Start 12/04/16 at 09:00; Status Future Hold Morphine Sulfate (morphine) 2 mg Q2H PRN IV PAIN Last administered on 12/20/16 03:22; Admin Dose 2 MG; Start 12/09/16 at 09:30 Acetaminophen 650 mg 650 mg Q6H PRN [place] ELEVATED TEMPERATURE Last administered on 12/09/16 17:53; Admin Dose 650 MG; Start 12/09/16 at 17:00 Piperacillin Sod/ Tazobactam Sod (Zosyn 2.25gm/ 50ml (Pmx)) 50 ml @ 100 mls/hr Q12 IVPB Last administered on 01/05/17 09:53; Admin Dose 100 MLS/HR; Start at 21:00 Metoprolol Tartrate (Lopressor) 5 mg Q4H PRN IV HR>100 Last administered on 22:23; Admin Dose 5 MG; Start 12/09/16 at 17:48 Hydralazine HCl (Apresoline) 10 mg Q6H PRN IV SBP>150mm hg Last administered on 12/19/16 08:50; Admin Dose 10 MG; Start 12/11/16 at 10:30 Morphine Sulfate (morphine) 2 mg Q2H PRN IV PAIN LEVEL 4-7; Start 12/13/16 at 10 :00 Pantoprazole (Protonix Tab) 40 mg DAILY@06 PO Last administered on 01/05/17 05 :06; Admin Dose 40 MG; Start 12/23/16 at 06:00 Insulin Glargine (Lantus) 22 unit DAILY@20 SC Last administered on 01/04/17 21 :00; Admin Dose 22 UNIT; Start 12/25/16 at 20:00 Diagnostic Test (Pha) (Accu-Chek) 1 ea 02 XX Last administered on 01/01/17 02: 53; Admin Dose 1 EA; Start 12/30/16 at 02:00 Metoprolol Tartrate (Lopressor) 25 mg BID PO Last administered on 01/04/17 20: 51; Admin Dose 25 MG; Start 12/30/16 at 21:00 Aspirin (Halfprin) 81 mg DAILY PO Last administered on 01/05/17 09:53; Admin Dose 81 MG; Start 12/31/16 at 09:00 Apixaban (Eliquis) 2.5 mg BID PO Last administered on 01/05/17 09:53; Admin Dose 2.5 MG; Start 12/30/16 at 21:00 Amiodarone HCl (Cordarone) 200 mg DAILY PO Last administered on 01/05/17 09:57 ; Admin Dose 200 MG; Start 12/31/16 at 09:00 Collagenase (Santyl) 1 applic DAILY TOP Last administered on 01/04/17 09:55; Admin Dose 1 APPLIC; Start 01/04/17 at 09:00 KIMBERLY NOYOLA January 05, 2017 16:41
--- NOTE | 2017-01-05 16:52 | CONS ---
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 Blood cultures from HD catheter on 12/13/2016 are negative to date. 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 superficial swab grew inna only - right pleural effusion s/p thoracentesis with .9L removed on 12/16/2016; (Note: there is no pleural fluid cx since orders were placed after Right thoracentesis , and Left thoracentesis was not performed on 12/17/16 d/t insufficient fluid) - funguria - ARANZA, on HD from 12/09/2016 - A fib; now in SR - troponin+ - small nonreversible perfusion abnormality in the inferoapical and inferior carver; EF 36% per Lexiscan 12/24/2016 - severe , EF 40-45% per TTE 12/17/16 - DM - Hgb A1c 8.7% - HTN associated with DM - Episodes of hypercapnic respiratory failure, responding well to BiPAP recommendations: - continue renally dosed pip/tazo (12/03/2016) empirically for diabetic foot infection while in hospital (s/p linezolid); May D/c home on po Levaquin/Flagyl to complete course - ultimately, Pt needs 6 weeks of antibiotics to treat 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 and left fourth proximal phalanx: 12/03/2016 through 01/15/2017. Problems: Consultation Date/Type/Reason Admit Date/Time Dec 02, 2016 at 21:01 Type of Consultation: Cardiology Referring Provider: VIET PARKER MD Exam/Review of Systems Vital Signs Vitals Vital Signs Date Time Temp Pulse Resp B/P Pulse Ox O2 Delivery O2 Flow Rate FiO2 01/05/17 16:44 86 99 30 01/05/17 14:39 18 Nasal Cannula 2.0 01/05/17 07:20 98.2 105/58 Intake and Output 01/04/17 01/04/17 01/05/17 15:00 23:00 07:00 Intake Total 50 ml 1710 ml 680 ml Output Total 1800 ml Balance 50 ml -90 ml 680 ml Exam more awake and alert today. d/w nursing at bedside and family. all questions answered Constitutional: alert Psych: nl mood/affect, no complaints Head: atraumatic, normocephalic Eyes: EOMI, PERRL, nl conjunctiva, nl lids, nl sclera ENMT: nl external ears & nose, nl lips & teeth, nl nasal mucosa & septum Respiratory: clear to auscultation, normal air movement Gastrointestinal: nl liver, spleen, non-tender, soft Musculoskeletal: nl extremities to inspection, nl gait and stance Results Result Diagram: 01/05/1752501/05/17 05 Results 24 hrs Laboratory Tests Test 01/04/17 17:48 01/04/17 20:58 01/05/17 05:26 01/05/17 07:45 Bedside Glucose 212 117 161 White Blood Count 7.4 Red Blood Count 2.60 L Hemoglobin 7.9 L Hematocrit 24.8 L Mean Corpuscular Volume 95.4 Mean Corpuscular Hemoglobin 30.4 Mean Corpuscular Hemoglobin Concent 31.9 L Red Cell Distribution Width 14.3 Platelet Count 186 Mean Platelet Volume 10.1 Neutrophils % 70.9 Lymphocytes % 13.6 L Monocytes % 12.3 H Eosinophils % 2.2 Basophils % 0.5 Nucleated Red Blood Cells % 0.0 Neutrophils # 5.2 Lymphocytes # 1.0 Monocytes # 0.9 Eosinophils # 0.2 Basophils # 0.0 Nucleated Red Blood Cells # 0.0 Sodium Level 139 Potassium Level 3.4 L Chloride Level 99 Carbon Dioxide Level 27 Anion Gap 16 Blood Urea Nitrogen 19 Creatinine 3.46 H Glucose Level 145 Calcium Level 8.5 Test 01/05/17 11:59 Bedside Glucose 172 Medications Medications Current Medications Ondansetron HCl (Zofran Inj) 4 mg Q6H PRN IV NAUSEA AND/OR VOMITING Last administered on 12/13/16 01:13; Admin Dose 4 MG; Start 12/02/16 at 22:30 Miscellaneous Information 1 ea NOTE XX ; Start 12/02/16 at 23:00 Glucose (Glutose) 15 gm Q15M PRN PO DECREASED GLUCOSE; Start 12/02/16 at 23:00 Glucose (Glutose) 22.5 gm Q15M PRN PO DECREASED GLUCOSE; Start 12/02/16 at 23: 00 Dextrose (D50w Syringe) 25 ml Q15M PRN IV DECREASED GLUCOSE Last administered on 12/10/16 05:52; Admin Dose 25 ML; Start 12/02/16 at 23:00 Dextrose (D50w Syringe) 50 ml Q15M PRN IV DECREASED GLUCOSE; Start 12/02/16 at 23:00 Glucagon (Glucagen) 1 mg Q15M PRN IM DECREASED GLUCOSE; Start 12/02/16 at 23:00 Glucose (Glutose) 15 gm Q15M PRN BUCCAL DECREASED GLUCOSE; Start 12/02/16 at 23 :00 Gabapentin (Neurontin) 800 mg TID PO Last administered on 12/08/16 20:33; Admin Dose 800 MG; Start 12/03/16 at 09:00; Status Future Hold Meclizine HCl (Antivert) 25 mg TID PRN PO dizziness Last administered on 09:37; Admin Dose 25 MG; Start 12/02/16 at 23:00 Terazosin HCl (Hytrin) 5 mg HS PO Last administered on 12/07/16 20:28; Admin Dose 5 MG; Start 12/03/16 at 21:00; Status Future Hold Acetaminophen/ Hydrocodone Bitart ([place] (5/325)) 1 tab Q6H PRN PO PAIN LEVEL 4 -7 Last administered on 12/23/16 22:14; Admin Dose 1 TAB; Start 12/02/16 at 23: 30 Acetaminophen (Tylenol Tab) 650 mg Q6H PRN PO PAIN AND OR ELEVATED TEMP Last administered on 01/02/17 17:47; Admin Dose 650 MG; Start 12/02/16 at 23:30 Docusate Sodium (Colace) 100 mg BID PO Last administered on 12/08/16 20:32; Admin Dose 100 MG; Start 12/03/16 at 09:00; Status Future Hold Zolpidem Tartrate (Ambien) 5 mg HS PRN PO INSOMNIA Last administered on 20:53; Admin Dose 5 MG; Start 12/02/16 at 23:30 Benazepril HCl (Lotensin) 10 mg DAILY PO Last administered on 12/07/16 08:26; Admin Dose 10 MG; Start 12/04/16 at 09:00; Status Future Hold Morphine Sulfate (morphine) 2 mg Q2H PRN IV PAIN Last administered on 12/20/16 03:22; Admin Dose 2 MG; Start 12/09/16 at 09:30 Acetaminophen 650 mg 650 mg Q6H PRN [place] ELEVATED TEMPERATURE Last administered on 12/09/16 17:53; Admin Dose 650 MG; Start 12/09/16 at 17:00 Piperacillin Sod/ Tazobactam Sod (Zosyn 2.25gm/ 50ml (Pmx)) 50 ml @ 100 mls/hr Q12 IVPB Last administered on 01/05/17 09:53; Admin Dose 100 MLS/HR; Start at 21:00 Metoprolol Tartrate (Lopressor) 5 mg Q4H PRN IV HR>100 Last administered on 22:23; Admin Dose 5 MG; Start 12/09/16 at 17:48 Hydralazine HCl (Apresoline) 10 mg Q6H PRN IV SBP>150mm hg Last administered on 12/19/16 08:50; Admin Dose 10 MG; Start 12/11/16 at 10:30 Morphine Sulfate (morphine) 2 mg Q2H PRN IV PAIN LEVEL 4-7; Start 12/13/16 at 10 :00 Pantoprazole (Protonix Tab) 40 mg DAILY@06 PO Last administered on 01/05/17 05 :06; Admin Dose 40 MG; Start 12/23/16 at 06:00 Insulin Glargine (Lantus) 22 unit DAILY@20 SC Last administered on 01/04/17 21 :00; Admin Dose 22 UNIT; Start 12/25/16 at 20:00 Diagnostic Test (Pha) (Accu-Chek) 1 ea 02 XX Last administered on 01/01/17 02: 53; Admin Dose 1 EA; Start 12/30/16 at 02:00 Metoprolol Tartrate (Lopressor) 25 mg BID PO Last administered on 01/04/17 20: 51; Admin Dose 25 MG; Start 12/30/16 at 21:00 Aspirin (Halfprin) 81 mg DAILY PO Last administered on 01/05/17 09:53; Admin Dose 81 MG; Start 12/31/16 at 09:00 Apixaban (Eliquis) 2.5 mg BID PO Last administered on 01/05/17 09:53; Admin Dose 2.5 MG; Start 12/30/16 at 21:00 Amiodarone HCl (Cordarone) 200 mg DAILY PO Last administered on 01/05/17 09:57 ; Admin Dose 200 MG; Start 12/31/16 at 09:00 Collagenase (Santyl) 1 applic DAILY TOP Last administered on 01/04/17 09:55; Admin Dose 1 APPLIC; Start 01/04/17 at 09:00 NIKHIL RAM MD January 05, 2017 16:52
--- NOTE | 2017-01-05 17:42 | CONS ---
Date/Time of Note Date/Time of Note DATE: 01/05/17 TIME: 17:41 Assessment/Plan Assessment/Plan Additional Assessment/Plan 1. Oliguric to Anuric Acute kidney injury 2/2 ATN- started on HD on 12/09/16 for acute fluid overload and Pulmonary edema 2. acute resp failure intubated on ventilator -now extubated on 12/10/2016- then again reintubated on 12/13/2016- now self extubated on 12/18/16 3. Moderate to large right pleural effusion s/p Right thoracentesis 900 cc drained on 12/16/16 2. Left foot diabetic ulcer/cellulitis currently on IV antibiotics, Zosyn and vancomycin. 3. History of diabetes mellitus, insulin-dependent with lower extremity neuropathy. 4. History of hypertension. 5. History of aortic stenosis with diastolic dysfunction with ejection fraction 60% on echocardiogram. PLAN: s/p Permacath placement for dialysis access,S/p HD yesteday- HD ordered for tomorrow HD placement done at [facility] HD center - done- pt gets HD on , , and will continue to follow up Consultation Date/Type/Reason Admit Date/Time Dec 02, 2016 at 21:01 Initial Consult Date Type of Consultation: NEPHROLOGY Referring Provider: VIET PARKER MD 24 HR Interval Summary Free Text/Dictation S/p HD yesterday 1.5 L removed, Bp stable, afebrile Exam/Review of Systems Vital Signs Vitals Vital Signs Date Time Temp Pulse Resp B/P Pulse Ox O2 Delivery O2 Flow Rate FiO2 01/05/17 16:56 2.0 01/05/17 16:44 86 99 30 01/05/17 14:39 18 Nasal Cannula 01/05/17 07:20 98.2 105/58 Intake and Output 01/04/17 01/04/17 01/05/17 15:00 23:00 07:00 Intake Total 50 ml 1710 ml 680 ml Output Total 1800 ml Balance 50 ml -90 ml 680 ml Exam Constitutional: alert Neck: supple Respiratory: crackles/rales Cardiovascular: nl pulses, regular rate and rhythm Gastrointestinal: non-tender, soft Musculoskeletal: nl extremities to inspection Extremities: No edema Neurological: PRECISION DEVICES INSPECTOR/TESTER II-XII intact, nl mental status, nl speech Skin: rash or lesions (L 1st toe: plantar aspect has eschar, dry non-TTP) Results Result Diagram: 01/05/17 0501/05/17 05 Results 24 hrs Laboratory Tests Test 01/04/17 17:48 01/04/17 20:58 01/05/17 05:26 01/05/17 07:45 Bedside Glucose 212 117 161 White Blood Count 7.4 Red Blood Count 2.60 L Hemoglobin 7.9 L Hematocrit 24.8 L Mean Corpuscular Volume 95.4 Mean Corpuscular Hemoglobin 30.4 Mean Corpuscular Hemoglobin Concent 31.9 L Red Cell Distribution Width 14.3 Platelet Count 186 Mean Platelet Volume 10.1 Neutrophils % 70.9 Lymphocytes % 13.6 L Monocytes % 12.3 H Eosinophils % 2.2 Basophils % 0.5 Nucleated Red Blood Cells % 0.0 Neutrophils # 5.2 Lymphocytes # 1.0 Monocytes # 0.9 Eosinophils # 0.2 Basophils # 0.0 Nucleated Red Blood Cells # 0.0 Sodium Level 139 Potassium Level 3.4 L Chloride Level 99 Carbon Dioxide Level 27 Anion Gap 16 Blood Urea Nitrogen 19 Creatinine 3.46 H Glucose Level 145 Calcium Level 8.5 Test 01/05/17 11:59 01/05/17 17:18 Bedside Glucose 172 260 H Medications Medications Current Medications Ondansetron HCl (Zofran Inj) 4 mg Q6H PRN IV NAUSEA AND/OR VOMITING Last administered on 12/13/16 01:13; Admin Dose 4 MG; Start 12/02/16 at 22:30 Miscellaneous Information 1 ea NOTE XX ; Start 12/02/16 at 23:00 Glucose (Glutose) 15 gm Q15M PRN PO DECREASED GLUCOSE; Start 12/02/16 at 23:00 Glucose (Glutose) 22.5 gm Q15M PRN PO DECREASED GLUCOSE; Start 12/02/16 at 23: 00 Dextrose (D50w Syringe) 25 ml Q15M PRN IV DECREASED GLUCOSE Last administered on 12/10/16 05:52; Admin Dose 25 ML; Start 12/02/16 at 23:00 Dextrose (D50w Syringe) 50 ml Q15M PRN IV DECREASED GLUCOSE; Start 12/02/16 at 23:00 Glucagon (Glucagen) 1 mg Q15M PRN IM DECREASED GLUCOSE; Start 12/02/16 at 23:00 Glucose (Glutose) 15 gm Q15M PRN BUCCAL DECREASED GLUCOSE; Start 12/02/16 at 23 :00 Gabapentin (Neurontin) 800 mg TID PO Last administered on 12/08/16 20:33; Admin Dose 800 MG; Start 12/03/16 at 09:00; Status Future Hold Meclizine HCl (Antivert) 25 mg TID PRN PO dizziness Last administered on 09:37; Admin Dose 25 MG; Start 12/02/16 at 23:00 Terazosin HCl (Hytrin) 5 mg HS PO Last administered on 12/07/16 20:28; Admin Dose 5 MG; Start 12/03/16 at 21:00; Status Future Hold Acetaminophen/ Hydrocodone Bitart ([place] (5/325)) 1 tab Q6H PRN PO PAIN LEVEL 4 -7 Last administered on 12/23/16 22:14; Admin Dose 1 TAB; Start 12/02/16 at 23: 30 Acetaminophen (Tylenol Tab) 650 mg Q6H PRN PO PAIN AND OR ELEVATED TEMP Last administered on 01/02/17 17:47; Admin Dose 650 MG; Start 12/02/16 at 23:30 Docusate Sodium (Colace) 100 mg BID PO Last administered on 12/08/16 20:32; Admin Dose 100 MG; Start 12/03/16 at 09:00; Status Future Hold Zolpidem Tartrate (Ambien) 5 mg HS PRN PO INSOMNIA Last administered on 20:53; Admin Dose 5 MG; Start 12/02/16 at 23:30 Benazepril HCl (Lotensin) 10 mg DAILY PO Last administered on 12/07/16 08:26; Admin Dose 10 MG; Start 12/04/16 at 09:00; Status Future Hold Morphine Sulfate (morphine) 2 mg Q2H PRN IV PAIN Last administered on 12/20/16 03:22; Admin Dose 2 MG; Start 12/09/16 at 09:30 Acetaminophen 650 mg 650 mg Q6H PRN [place] ELEVATED TEMPERATURE Last administered on 12/09/16 17:53; Admin Dose 650 MG; Start 12/09/16 at 17:00 Piperacillin Sod/ Tazobactam Sod (Zosyn 2.25gm/ 50ml (Pmx)) 50 ml @ 100 mls/hr Q12 IVPB Last administered on 01/05/17 09:53; Admin Dose 100 MLS/HR; Start at 21:00 Metoprolol Tartrate (Lopressor) 5 mg Q4H PRN IV HR>100 Last administered on 22:23; Admin Dose 5 MG; Start 12/09/16 at 17:48 Hydralazine HCl (Apresoline) 10 mg Q6H PRN IV SBP>150mm hg Last administered on 12/19/16 08:50; Admin Dose 10 MG; Start 12/11/16 at 10:30 Morphine Sulfate (morphine) 2 mg Q2H PRN IV PAIN LEVEL 4-7; Start 12/13/16 at 10 :00 Pantoprazole (Protonix Tab) 40 mg DAILY@06 PO Last administered on 01/05/17 05 :06; Admin Dose 40 MG; Start 12/23/16 at 06:00 Insulin Glargine (Lantus) 22 unit DAILY@20 SC Last administered on 01/04/17 21 :00; Admin Dose 22 UNIT; Start 12/25/16 at 20:00 Diagnostic Test (Pha) (Accu-Chek) 1 ea 02 XX Last administered on 01/01/17 02: 53; Admin Dose 1 EA; Start 12/30/16 at 02:00 Metoprolol Tartrate (Lopressor) 25 mg BID PO Last administered on 01/04/17 20: 51; Admin Dose 25 MG; Start 12/30/16 at 21:00 Aspirin (Halfprin) 81 mg DAILY PO Last administered on 01/05/17 09:53; Admin Dose 81 MG; Start 12/31/16 at 09:00 Apixaban (Eliquis) 2.5 mg BID PO Last administered on 01/05/17 09:53; Admin Dose 2.5 MG; Start 12/30/16 at 21:00 Amiodarone HCl (Cordarone) 200 mg DAILY PO Last administered on 01/05/17 09:57 ; Admin Dose 200 MG; Start 12/31/16 at 09:00 Collagenase (Santyl) 1 applic DAILY TOP Last administered on 01/04/17 09:55; Admin Dose 1 APPLIC; Start 01/04/17 at 09:00 TASHIA MCGARRY MD January 05, 2017 17:42
[2017-01-05] MEDS: INSULIN GLARGINE [LANtus] 3 ML PEN SC SCH (21:13)
[2017-01-05] MEDS: ACETAMINOPHEN 325 MG TAB PO PRN (23:23)
[2017-01-06] VITALS (17 sets, daily range): BP systolic 94–124; BP diastolic 52–84; PULSE 70–89; RESP 18–24
[2017-01-06] MEDS: ACCU-CHEK XX SCH ×2 (02:27→20:52)
[2017-01-06] MEDS: PANTOPRAZOLE (EC) 40 MG TAB PO SCH (05:51)
[2017-01-06 06:17] LABS: ADD SCAN DIFF NO
[2017-01-06 06:23] LABS: BASOPHILS % 0.6 % (0.0-2.0); EOSINOPHILS # 0.3 10^3/ul (0.0-0.5); EOSINOPHILS % 3.6 % (0.0-7.0); HEMATOCRIT 23.5 % (42.0-52.0); HEMOGLOBIN 7.5 g/dl (14.0-18.0); LYMPHOCYTES % 13.2 % (15.0-51.0); MEAN CORPUSCULAR HEMOGLOBIN 31.4 pg (29.0-33.0); MEAN CORPUSCULAR HGB CONC 31.9 g/dl (32.0-37.0); MEAN CORPUSCULAR VOLUME 98.3 fl (82.0-101.0); MEAN PLATELET VOLUME 10.3 fl (7.4-10.4); MONOCYTE # 0.9 10^3/ul (0.3-0.9); MONOCYTES % 12.3 % (0.0-11.0); NEUTROPHIL # 5.1 10^3/ul (1.6-7.5); NEUTROPHILS % 69.7 % (39.0-77.0); PLATELET COUNT 181 10^3/UL (140-415); RED BLOOD COUNT 2.39 10^6/ul (4.70-6.10); RED CELL DISTRIBUTION WIDTH 14.1 % (11.5-14.5); WHITE BLOOD COUNT 7.3 10^3/ul (4.8-10.8)
[2017-01-06 06:49] LABS: CALCIUM 8.4 mg/dl (8.4-10.2); CREATININE 4.09 mg/dl (0.61-1.24); POTASSIUM 3.6 mmol/L (3.5-5.1)
[2017-01-06] MEDS: ALBUTEROL/IPRATROPIUM (NEB) 3 ML AMP HHN SCH ×3 (08:00→20:28)
[2017-01-06] MEDS: INSULIN ASPART [NOVOLOG] 3 ML PEN SC SCH ×7 (08:15→20:52)
[2017-01-06] MEDS: METOPROLOL 25 MG TAB PO SCH ×2 (09:00→20:52)
[2017-01-06] MEDS: ASPIRIN (EC) 81 MG TAB PO SCH (09:02)
[2017-01-06] MEDS: PIPER-TAZO 2.25 GM (PMX) 50 ML IVPB SCH ×2 (09:02→20:51)
[2017-01-06] MEDS: APIXABAN 5 MG TABLET PO SCH ×2 (09:03→20:51)
[2017-01-06] MEDS: COLLAGENASE 30 GM TUBE TOP SCH (09:04)
[2017-01-06] MEDS: AMIODARONE 200 MG TAB PO SCH (09:05)
--- NOTE | 2017-01-06 09:05 | CONS ---
Date/Time of Note Date/Time of Note DATE: 01/06/17 TIME: 09:04 Assessment/Plan Assessment/Plan Additional Assessment/Plan 1. Oliguric to Anuric Acute kidney injury 2/2 ATN- started on HD on 12/09/16 for acute fluid overload and Pulmonary edema 2. acute resp failure intubated on ventilator -now extubated on 12/10/2016- then again reintubated on 12/13/2016- now self extubated on 12/18/16 3. Moderate to large right pleural effusion s/p Right thoracentesis 900 cc drained on 12/16/16 2. Left foot diabetic ulcer/cellulitis currently on IV antibiotics, Zosyn and vancomycin. 3. History of diabetes mellitus, insulin-dependent with lower extremity neuropathy. 4. History of hypertension. 5. History of aortic stenosis with diastolic dysfunction with ejection fraction 60% on echocardiogram. PLAN: s/p Right chest Permacath placement for dialysis access, plan for HD today HD placement done at [facility] - done- pt gets HD on , , and will continue to follow up Consultation Date/Type/Reason Admit Date/Time Dec 02, 2016 at 21:01 Initial Consult Date Type of Consultation: NEPHROLOGY Referring Provider: VIET PARKER MD 24 HR Interval Summary Free Text/Dictation doing better, eatign food now, Plan for HD today Exam/Review of Systems Vital Signs Vitals Vital Signs Date Time Temp Pulse Resp B/P Pulse Ox O2 Delivery O2 Flow Rate FiO2 01/06/17 08:02 97.5 83 22 124/61 100 01/06/17 08:01 Nasal Cannula 2.0 01/06/17 05:15 30 Intake and Output 01/05/17 01/05/17 01/06/17 15:00 23:00 07:00 Intake Total 50 ml 530 ml Balance 50 ml 530 ml Exam Constitutional: alert Neck: supple Respiratory: crackles/rales Cardiovascular: nl pulses, regular rate and rhythm Gastrointestinal: non-tender, soft Musculoskeletal: nl extremities to inspection Extremities: No edema Neurological: BOWLING BALL WEIGHER AND PACKER II-XII intact, nl mental status, nl speech Skin: rash or lesions (L 1st toe: plantar aspect has eschar, dry non-TTP) Results Result Diagram: 01/06/1751901/06/17519 Results 24 hrs Laboratory Tests Test 01/05/17 11:59 01/05/17 17:18 01/05/17 21:11 01/06/17 01:59 Bedside Glucose 172 260 H 201 154 Test 01/06/17 05:20 01/06/17 07:49 White Blood Count 7.3 Red Blood Count 2.39 L Hemoglobin 7.5 L Hematocrit 23.5 L Mean Corpuscular Volume 98.3 Mean Corpuscular Hemoglobin 31.4 Mean Corpuscular Hemoglobin Concent 31.9 L Red Cell Distribution Width 14.1 Platelet Count 181 Mean Platelet Volume 10.3 Neutrophils % 69.7 Lymphocytes % 13.2 L Monocytes % 12.3 H Eosinophils % 3.6 Basophils % 0.6 Nucleated Red Blood Cells % 0.0 Neutrophils # 5.1 Lymphocytes # 1.0 Monocytes # 0.9 Eosinophils # 0.3 Basophils # 0.0 Nucleated Red Blood Cells # 0.0 Sodium Level 137 Potassium Level 3.6 Chloride Level 100 Carbon Dioxide Level 28 Anion Gap 13 Blood Urea Nitrogen 26 H Creatinine 4.09 H Glucose Level 117 Calcium Level 8.4 Bedside Glucose 120 Medications Medications Current Medications Ondansetron HCl (Zofran Inj) 4 mg Q6H PRN IV NAUSEA AND/OR VOMITING Last administered on 12/13/16 01:13; Admin Dose 4 MG; Start 12/02/16 at 22:30 Miscellaneous Information 1 ea NOTE XX ; Start 12/02/16 at 23:00 Glucose (Glutose) 15 gm Q15M PRN PO DECREASED GLUCOSE; Start 12/02/16 at 23:00 Glucose (Glutose) 22.5 gm Q15M PRN PO DECREASED GLUCOSE; Start 12/02/16 at 23: 00 Dextrose (D50w Syringe) 25 ml Q15M PRN IV DECREASED GLUCOSE Last administered on 12/10/16 05:52; Admin Dose 25 ML; Start 12/02/16 at 23:00 Dextrose (D50w Syringe) 50 ml Q15M PRN IV DECREASED GLUCOSE; Start 12/02/16 at 23:00 Glucagon (Glucagen) 1 mg Q15M PRN IM DECREASED GLUCOSE; Start 12/02/16 at 23:00 Glucose (Glutose) 15 gm Q15M PRN BUCCAL DECREASED GLUCOSE; Start 12/02/16 at 23 :00 Gabapentin (Neurontin) 800 mg TID PO Last administered on 12/08/16 20:33; Admin Dose 800 MG; Start 12/03/16 at 09:00; Status Future Hold Meclizine HCl (Antivert) 25 mg TID PRN PO dizziness Last administered on 09:37; Admin Dose 25 MG; Start 12/02/16 at 23:00 Terazosin HCl (Hytrin) 5 mg HS PO Last administered on 12/07/16 20:28; Admin Dose 5 MG; Start 12/03/16 at 21:00; Status Future Hold Acetaminophen/ Hydrocodone Bitart ([place] (5/325)) 1 tab Q6H PRN PO PAIN LEVEL 4 -7 Last administered on 12/23/16 22:14; Admin Dose 1 TAB; Start 12/02/16 at 23: 30 Acetaminophen (Tylenol Tab) 650 mg Q6H PRN PO PAIN AND OR ELEVATED TEMP Last administered on 01/05/17 23:23; Admin Dose 650 MG; Start 12/02/16 at 23:30 Docusate Sodium (Colace) 100 mg BID PO Last administered on 12/08/16 20:32; Admin Dose 100 MG; Start 12/03/16 at 09:00; Status Future Hold Zolpidem Tartrate (Ambien) 5 mg HS PRN PO INSOMNIA Last administered on 20:53; Admin Dose 5 MG; Start 12/02/16 at 23:30 Benazepril HCl (Lotensin) 10 mg DAILY PO Last administered on 12/07/16 08:26; Admin Dose 10 MG; Start 12/04/16 at 09:00; Status Future Hold Morphine Sulfate (morphine) 2 mg Q2H PRN IV PAIN Last administered on 12/20/16 03:22; Admin Dose 2 MG; Start 12/09/16 at 09:30 Acetaminophen 650 mg 650 mg Q6H PRN [place] ELEVATED TEMPERATURE Last administered on 12/09/16 17:53; Admin Dose 650 MG; Start 12/09/16 at 17:00 Piperacillin Sod/ Tazobactam Sod (Zosyn 2.25gm/ 50ml (Pmx)) 50 ml @ 100 mls/hr Q12 IVPB Last administered on 01/05/17 21:15; Admin Dose 100 MLS/HR; Start at 21:00 Metoprolol Tartrate (Lopressor) 5 mg Q4H PRN IV HR>100 Last administered on 22:23; Admin Dose 5 MG; Start 12/09/16 at 17:48 Hydralazine HCl (Apresoline) 10 mg Q6H PRN IV SBP>150mm hg Last administered on 12/19/16 08:50; Admin Dose 10 MG; Start 12/11/16 at 10:30 Morphine Sulfate (morphine) 2 mg Q2H PRN IV PAIN LEVEL 4-7; Start 12/13/16 at 10 :00 Pantoprazole (Protonix Tab) 40 mg DAILY@06 PO Last administered on 01/06/17 05 :51; Admin Dose 40 MG; Start 12/23/16 at 06:00 Insulin Glargine (Lantus) 22 unit DAILY@20 SC Last administered on 01/05/17 21 :13; Admin Dose 22 UNIT; Start 12/25/16 at 20:00 Diagnostic Test (Pha) (Accu-Chek) 1 ea 02 XX Last administered on 01/06/17 02: 27; Admin Dose 1 EA; Start 12/30/16 at 02:00 Metoprolol Tartrate (Lopressor) 25 mg BID PO Last administered on 01/05/17 21: 16; Admin Dose 25 MG; Start 12/30/16 at 21:00 Aspirin (Halfprin) 81 mg DAILY PO Last administered on 01/05/17 09:53; Admin Dose 81 MG; Start 12/31/16 at 09:00 Apixaban (Eliquis) 2.5 mg BID PO Last administered on 01/05/17 21:15; Admin Dose 2.5 MG; Start 12/30/16 at 21:00 Amiodarone HCl (Cordarone) 200 mg DAILY PO Last administered on 01/05/17 09:57 ; Admin Dose 200 MG; Start 12/31/16 at 09:00 Collagenase (Santyl) 1 applic DAILY TOP Last administered on 01/04/17 09:55; Admin Dose 1 APPLIC; Start 01/04/17 at 09:00 TASHIA MCGARRY MD January 06, 2017 09:05
--- NOTE | 2017-01-06 12:14 | CONS ---
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 Blood cultures from HD catheter on 12/13/2016 are negative to date. 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 superficial swab grew inna only - right pleural effusion s/p thoracentesis with .9L removed on 12/16/2016; (Note: there is no pleural fluid cx since orders were placed after Right thoracentesis , and Left thoracentesis was not performed on 12/17/16 d/t insufficient fluid) - funguria - ARANZA, on HD from 12/09/2016 - A fib; now in SR - troponin+ - small nonreversible perfusion abnormality in the inferoapical and inferior carver; EF 36% per Lexiscan 12/24/2016 - severe , EF 40-45% per TTE 12/17/16 - DM - Hgb A1c 8.7% - HTN associated with DM - Episodes of hypercapnic respiratory failure, responding well to BiPAP recommendations: - continue renally dosed pip/tazo (12/03/2016-) empirically for diabetic foot infection while in hospital (s/p linezolid); May D/c home on po Levaquin/Flagyl to complete course - ultimately, Pt needs 6 weeks of antibiotics to treat 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 and left fourth proximal phalanx: 12/03/2016 through 01/15/2017 - DC planning in progress management d/w Pt, Pt's , ALINA Figueroa, and Dr. Wilson Problems: Consultation Date/Type/Reason Admit Date/Time Dec 02, 2016 at 21:01 Initial Consult Date 12/03/16 Type of Consultation: Infectious Disease Referring Provider: VIET PARKER MD 24 HR Interval Summary Free Text/Dictation Getting 1 unit PRBC with HD today for Hgb 7.5; Bipap and home health already set up per d/w nursing staff. Pt denies pain or SOB. No new complaints per pt and pt's . Exam/Review of Systems Vital Signs Vitals Vital Signs Date Time Temp Pulse Resp B/P Pulse Ox O2 Delivery O2 Flow Rate FiO2 01/06/17 11:40 88 01/06/17 09:40 16 01/06/17 08:02 97.5 124/61 100 01/06/17 08:01 Nasal Cannula 2.0 01/06/17 05:15 30 Intake and Output 01/05/17 01/05/17 01/06/17 14:59 22:59 06:59 Intake Total 50 ml 530 ml Balance 50 ml 530 ml Exam Constitutional: alert, oriented, well developed, PRBC transfusion and HD in progress Psych: calm Head: atraumatic, normocephalic Eyes: nl sclera Neck: supple, other (R IJ permacath with no e/o infection) Respiratory: diminished breath sounds No wheezing Cardiovascular: regular rate and rhythm, systolic murmur Gastrointestinal: bowel sounds (present), non-tender, soft, No distended Extremities: other (R hand HL with no e/o infection), No clubbing, No cyanosis Neurological: nl mental status, nl speech (Primarily [place] speaking) Skin: nl turgor, other (See nurse note and photos in chart for details; stage 2 sacrococcyx ulcer; Left great toe diabetic dry ulcer with eschar) Results Result Diagram: 01/06/1751901/06/17519 Results 24 hrs Laboratory Tests Test 01/05/17 17:18 01/05/17 21:11 01/06/17 01:59 01/06/17 05:20 Bedside Glucose 260 H 201 154 White Blood Count 7.3 Red Blood Count 2.39 L Hemoglobin 7.5 L Hematocrit 23.5 L Mean Corpuscular Volume 98.3 Mean Corpuscular Hemoglobin 31.4 Mean Corpuscular Hemoglobin Concent 31.9 L Red Cell Distribution Width 14.1 Platelet Count 181 Mean Platelet Volume 10.3 Neutrophils % 69.7 Lymphocytes % 13.2 L Monocytes % 12.3 H Eosinophils % 3.6 Basophils % 0.6 Nucleated Red Blood Cells % 0.0 Neutrophils # 5.1 Lymphocytes # 1.0 Monocytes # 0.9 Eosinophils # 0.3 Basophils # 0.0 Nucleated Red Blood Cells # 0.0 Sodium Level 137 Potassium Level 3.6 Chloride Level 100 Carbon Dioxide Level 28 Anion Gap 13 Blood Urea Nitrogen 26 H Creatinine 4.09 H Glucose Level 117 Calcium Level 8.4 Test 01/06/17 07:49 01/06/17 11:52 Bedside Glucose 120 177 Medications Medications Current Medications Ondansetron HCl (Zofran Inj) 4 mg Q6H PRN IV NAUSEA AND/OR VOMITING Last administered on 12/13/16 01:13; Admin Dose 4 MG; Start 12/02/16 at 22:30 Miscellaneous Information 1 ea NOTE XX ; Start 12/02/16 at 23:00 Glucose (Glutose) 15 gm Q15M PRN PO DECREASED GLUCOSE; Start 12/02/16 at 23:00 Glucose (Glutose) 22.5 gm Q15M PRN PO DECREASED GLUCOSE; Start 12/02/16 at 23: 00 Dextrose (D50w Syringe) 25 ml Q15M PRN IV DECREASED GLUCOSE Last administered on 12/10/16 05:52; Admin Dose 25 ML; Start 12/02/16 at 23:00 Dextrose (D50w Syringe) 50 ml Q15M PRN IV DECREASED GLUCOSE; Start 12/02/16 at 23:00 Glucagon (Glucagen) 1 mg Q15M PRN IM DECREASED GLUCOSE; Start 12/02/16 at 23:00 Glucose (Glutose) 15 gm Q15M PRN BUCCAL DECREASED GLUCOSE; Start 12/02/16 at 23 :00 Gabapentin (Neurontin) 800 mg TID PO Last administered on 12/08/16 20:33; Admin Dose 800 MG; Start 12/03/16 at 09:00; Status Future Hold Meclizine HCl (Antivert) 25 mg TID PRN PO dizziness Last administered on 09:37; Admin Dose 25 MG; Start 12/02/16 at 23:00 Terazosin HCl (Hytrin) 5 mg HS PO Last administered on 12/07/16 20:28; Admin Dose 5 MG; Start 12/03/16 at 21:00; Status Future Hold Acetaminophen/ Hydrocodone Bitart ([place] (5/325)) 1 tab Q6H PRN PO PAIN LEVEL 4 -7 Last administered on 12/23/16 22:14; Admin Dose 1 TAB; Start 12/02/16 at 23: 30 Acetaminophen (Tylenol Tab) 650 mg Q6H PRN PO PAIN AND OR ELEVATED TEMP Last administered on 01/05/17 23:23; Admin Dose 650 MG; Start 12/02/16 at 23:30 Docusate Sodium (Colace) 100 mg BID PO Last administered on 12/08/16 20:32; Admin Dose 100 MG; Start 12/03/16 at 09:00; Status Future Hold Zolpidem Tartrate (Ambien) 5 mg HS PRN PO INSOMNIA Last administered on 20:53; Admin Dose 5 MG; Start 12/02/16 at 23:30 Benazepril HCl (Lotensin) 10 mg DAILY PO Last administered on 12/07/16 08:26; Admin Dose 10 MG; Start 12/04/16 at 09:00; Status Future Hold Morphine Sulfate (morphine) 2 mg Q2H PRN IV PAIN Last administered on 12/20/16 03:22; Admin Dose 2 MG; Start 12/09/16 at 09:30 Acetaminophen 650 mg 650 mg Q6H PRN [place] ELEVATED TEMPERATURE Last administered on 12/09/16 17:53; Admin Dose 650 MG; Start 12/09/16 at 17:00 Piperacillin Sod/ Tazobactam Sod (Zosyn 2.25gm/ 50ml (Pmx)) 50 ml @ 100 mls/hr Q12 IVPB Last administered on 01/06/17 09:02; Admin Dose 100 MLS/HR; Start at 21:00 Metoprolol Tartrate (Lopressor) 5 mg Q4H PRN IV HR>100 Last administered on 22:23; Admin Dose 5 MG; Start 12/09/16 at 17:48 Hydralazine HCl (Apresoline) 10 mg Q6H PRN IV SBP>150mm hg Last administered on 12/19/16 08:50; Admin Dose 10 MG; Start 12/11/16 at 10:30 Morphine Sulfate (morphine) 2 mg Q2H PRN IV PAIN LEVEL 4-7; Start 12/13/16 at 10 :00 Pantoprazole (Protonix Tab) 40 mg DAILY@06 PO Last administered on 01/06/17 05 :51; Admin Dose 40 MG; Start 12/23/16 at 06:00 Insulin Glargine (Lantus) 22 unit DAILY@20 SC Last administered on 01/05/17 21 :13; Admin Dose 22 UNIT; Start 12/25/16 at 20:00 Diagnostic Test (Pha) (Accu-Chek) 1 ea 02 XX Last administered on 01/06/17 02: 27; Admin Dose 1 EA; Start 12/30/16 at 02:00 Metoprolol Tartrate (Lopressor) 25 mg BID PO Last administered on 01/05/17 21: 16; Admin Dose 25 MG; Start 12/30/16 at 21:00 Aspirin (Halfprin) 81 mg DAILY PO Last administered on 01/06/17 09:02; Admin Dose 81 MG; Start 12/31/16 at 09:00 Apixaban (Eliquis) 2.5 mg BID PO Last administered on 01/06/17 09:03; Admin Dose 2.5 MG; Start 12/30/16 at 21:00 Amiodarone HCl (Cordarone) 200 mg DAILY PO Last administered on 01/06/17 09:05 ; Admin Dose 200 MG; Start 12/31/16 at 09:00 Collagenase (Santyl) 1 applic DAILY TOP Last administered on 01/06/17 09:04; Admin Dose 1 APPLIC; Start 01/04/17 at 09:00 YUMIKO ALATORRE NP January 06, 2017 12:14
--- NOTE | 2017-01-06 13:02 | PN ---
Date/Time of Note Date/Time of Note DATE: 01/06/17 TIME: 12:59 Assessment/Plan VTE Prophylaxis VTE Prophylaxis Intervention: other Lines/Catheters [facility] permacath Urinary Cath still in place: No Assessment/Plan Assessment/Plan - Anemia- 1 unit PRBC transfused during HD today- tolerating well. Monitor am labs. - Acute kidney injury secondary to ATN. Continued on hemodialysis. Dr. Remy is following in nephrology consultation. - Acute respiratory failure secondary to pulmonary edema, resolved. Patient continues on BiPAP overnight. Dr. Alvarez is following from pulmonology standpoint. - Cellulitis of left foot, 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 and left fourth proximal phalanx per bone scan. Continue antibiotics per ID. - Bilateral pleural effusion, this post right sided thoracentesis with removal of 900 cc of fluid. - Acute to subacute right occipital lobe ischemic infarct per CT, Dr Morris is following in neurology consultation. - Paroxysmal atrial fibrillation and positive troponin. Dr. Cobian is following and cardiology consultation. Status post Lexiscan on 12/24 with no ischemia but positive scar. - Fungemia, status post treatment. Dr. Rashaun pritchard is following in infection disease consultation. - Diabetic foot ulcer of the left foot, Dr Lin is following in podiatry consultation. - Aortic stenosis - Diastolic dysfunction congestive heart failure with preserved ejection fraction of 60%. - DM, Hgb A1c is 8.7, continue Lantus and pre-meal NovoLog and NovoLog per sliding scale. -S/p traumatic hematuria, Dr. Grey urology consult is following. Further recommendations based on clinical course. Plan of care discussed with Dr. Heredia. Subjective 24 Hr Interval Summary Free Text/Dictation Having 1 unit PRBC during HD - tolerates well. afebrile, at bed side- dw staff Constitutional: requiring O2 Respiratory: no complaints Cardiovascular: no complaints Gastrointestinal: no complaints Genitourinary: no complaints Musculoskeletal: bone/joint pain Skin: other Exam/Review of Systems Vital Signs Vitals Vital Signs Date Time Temp Pulse Resp B/P Pulse Ox O2 Delivery O2 Flow Rate FiO2 01/06/17 12:41 88 01/06/17 09:40 16 01/06/17 08:02 97.5 124/61 100 01/06/17 08:01 Nasal Cannula 2.0 01/06/17 05:15 30 Intake and Output 01/05/17 01/05/17 01/06/17 15:00 23:00 07:00 Intake Total 50 ml 530 ml Balance 50 ml 530 ml Exam Constitutional: alert, well developed ENMT: mucosa pink and moist, nl external ears & nose Neck: non-tender Respiratory: diminished breath sounds, normal air movement Cardiovascular: nl pulses Gastrointestinal: non-tender, soft Musculoskeletal: other Extremities: normal pulses Neurological: nl mental status, nl speech Skin: other Results Result Diagram: 01/06/1751901/06/17 0520 Results 24 hrs Laboratory Tests Test 01/05/17 17:18 01/05/17 21:11 01/06/17 01:59 01/06/17 05:20 Bedside Glucose 260 H 201 154 White Blood Count 7.3 Red Blood Count 2.39 L Hemoglobin 7.5 L Hematocrit 23.5 L Mean Corpuscular Volume 98.3 Mean Corpuscular Hemoglobin 31.4 Mean Corpuscular Hemoglobin Concent 31.9 L Red Cell Distribution Width 14.1 Platelet Count 181 Mean Platelet Volume 10.3 Neutrophils % 69.7 Lymphocytes % 13.2 L Monocytes % 12.3 H Eosinophils % 3.6 Basophils % 0.6 Nucleated Red Blood Cells % 0.0 Neutrophils # 5.1 Lymphocytes # 1.0 Monocytes # 0.9 Eosinophils # 0.3 Basophils # 0.0 Nucleated Red Blood Cells # 0.0 Sodium Level 137 Potassium Level 3.6 Chloride Level 100 Carbon Dioxide Level 28 Anion Gap 13 Blood Urea Nitrogen 26 H Creatinine 4.09 H Glucose Level 117 Calcium Level 8.4 Test 01/06/17 07:49 01/06/17 11:52 Bedside Glucose 120 177 Medications Medications Current Medications Ondansetron HCl (Zofran Inj) 4 mg Q6H PRN IV NAUSEA AND/OR VOMITING Last administered on 12/13/16 01:13; Admin Dose 4 MG; Start 12/02/16 at 22:30 Miscellaneous Information 1 ea NOTE XX ; Start 12/02/16 at 23:00 Glucose (Glutose) 15 gm Q15M PRN PO DECREASED GLUCOSE; Start 12/02/16 at 23:00 Glucose (Glutose) 22.5 gm Q15M PRN PO DECREASED GLUCOSE; Start 12/02/16 at 23: 00 Dextrose (D50w Syringe) 25 ml Q15M PRN IV DECREASED GLUCOSE Last administered on 12/10/16 05:52; Admin Dose 25 ML; Start 12/02/16 at 23:00 Dextrose (D50w Syringe) 50 ml Q15M PRN IV DECREASED GLUCOSE; Start 12/02/16 at 23:00 Glucagon (Glucagen) 1 mg Q15M PRN IM DECREASED GLUCOSE; Start 12/02/16 at 23:00 Glucose (Glutose) 15 gm Q15M PRN BUCCAL DECREASED GLUCOSE; Start 12/02/16 at 23 :00 Gabapentin (Neurontin) 800 mg TID PO Last administered on 12/08/16 20:33; Admin Dose 800 MG; Start 12/03/16 at 09:00; Status Future Hold Meclizine HCl (Antivert) 25 mg TID PRN PO dizziness Last administered on 09:37; Admin Dose 25 MG; Start 12/02/16 at 23:00 Terazosin HCl (Hytrin) 5 mg HS PO Last administered on 12/07/16 20:28; Admin Dose 5 MG; Start 12/03/16 at 21:00; Status Future Hold Acetaminophen/ Hydrocodone Bitart ([place] (5/325)) 1 tab Q6H PRN PO PAIN LEVEL 4 -7 Last administered on 12/23/16 22:14; Admin Dose 1 TAB; Start 12/02/16 at 23: 30 Acetaminophen (Tylenol Tab) 650 mg Q6H PRN PO PAIN AND OR ELEVATED TEMP Last administered on 01/05/17 23:23; Admin Dose 650 MG; Start 12/02/16 at 23:30 Docusate Sodium (Colace) 100 mg BID PO Last administered on 12/08/16 20:32; Admin Dose 100 MG; Start 12/03/16 at 09:00; Status Future Hold Zolpidem Tartrate (Ambien) 5 mg HS PRN PO INSOMNIA Last administered on 20:53; Admin Dose 5 MG; Start 12/02/16 at 23:30 Benazepril HCl (Lotensin) 10 mg DAILY PO Last administered on 12/07/16 08:26; Admin Dose 10 MG; Start 12/04/16 at 09:00; Status Future Hold Morphine Sulfate (morphine) 2 mg Q2H PRN IV PAIN Last administered on 12/20/16 03:22; Admin Dose 2 MG; Start 12/09/16 at 09:30 Acetaminophen 650 mg 650 mg Q6H PRN [place] ELEVATED TEMPERATURE Last administered on 12/09/16 17:53; Admin Dose 650 MG; Start 12/09/16 at 17:00 Piperacillin Sod/ Tazobactam Sod (Zosyn 2.25gm/ 50ml (Pmx)) 50 ml @ 100 mls/hr Q12 IVPB Last administered on 01/06/17 09:02; Admin Dose 100 MLS/HR; Start at 21:00 Metoprolol Tartrate (Lopressor) 5 mg Q4H PRN IV HR>100 Last administered on 22:23; Admin Dose 5 MG; Start 12/09/16 at 17:48 Hydralazine HCl (Apresoline) 10 mg Q6H PRN IV SBP>150mm hg Last administered on 12/19/16 08:50; Admin Dose 10 MG; Start 12/11/16 at 10:30 Morphine Sulfate (morphine) 2 mg Q2H PRN IV PAIN LEVEL 4-7; Start 12/13/16 at 10 :00 Pantoprazole (Protonix Tab) 40 mg DAILY@06 PO Last administered on 01/06/17 05 :51; Admin Dose 40 MG; Start 12/23/16 at 06:00 Insulin Glargine (Lantus) 22 unit DAILY@20 SC Last administered on 01/05/17 21 :13; Admin Dose 22 UNIT; Start 12/25/16 at 20:00 Diagnostic Test (Pha) (Accu-Chek) 1 ea 02 XX Last administered on 01/06/17 02: 27; Admin Dose 1 EA; Start 12/30/16 at 02:00 Metoprolol Tartrate (Lopressor) 25 mg BID PO Last administered on 01/05/17 21: 16; Admin Dose 25 MG; Start 12/30/16 at 21:00 Aspirin (Halfprin) 81 mg DAILY PO Last administered on 01/06/17 09:02; Admin Dose 81 MG; Start 12/31/16 at 09:00 Apixaban (Eliquis) 2.5 mg BID PO Last administered on 01/06/17 09:03; Admin Dose 2.5 MG; Start 12/30/16 at 21:00 Amiodarone HCl (Cordarone) 200 mg DAILY PO Last administered on 01/06/17 09:05 ; Admin Dose 200 MG; Start 12/31/16 at 09:00 Collagenase (Santyl) 1 applic DAILY TOP Last administered on 01/06/17 09:04; Admin Dose 1 APPLIC; Start 01/04/17 at 09:00 YULIANA SIMMONS January 06, 2017 13:02
--- NOTE | 2017-01-06 17:46 | CONS ---
Date/Time of Note Date/Time of Note DATE: 01/06/17 TIME: 17:44 Assessment/Plan Assessment/Plan Chief Complaint/Hosp Course IMPRESSION: 1. Atrial fibrillation-most recently in SR with PAC/PVC when on tele 2. Hypotension-resolved off of pat 3. Abnormal electrocardiogram with inferolateral T-wave inversions. 4. Respiratory failure-s/p intubation and remains 5. Nonhealing toe ulceration-vascular following 6. Peripheral arterial disease by arterial ultrasound of the lower extremities this admission. 7. Diabetes mellitus. 8. Fevers. 9. 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 degree of -Will hold on afterload reduction given severe and thus fixed afterload at valve orifice -check 12 lead ecg in am to document current rhythm Problems: Consultation Date/Type/Reason Admit Date/Time Dec 02, 2016 at 21:01 Initial Consult Date 12/03/16 Type of Consultation: Cardiology Reason for Consultation PAF/./cardiomyopathy Referring Provider: VIET PARKER MD Exam/Review of Systems Vital Signs Vitals Vital Signs Date Time Temp Pulse Resp B/P Pulse Ox O2 Delivery O2 Flow Rate FiO2 01/06/17 17:14 85 24 100/53 97 Nasal Cannula 2.0 01/06/17 08:02 97.5 01/06/17 05:15 30 Intake and Output 01/05/17 01/05/17 01/06/17 15:00 23:00 07:00 Intake Total 50 ml 530 ml Balance 50 ml 530 ml Exam Review of Systems: CONSTITUTIONAL: No fevers, chills. PULMONARY: mild sob-improving CARDIOVASCULAR: No chest pain/palpitations GASTROINTESTINAL: No nausea/vomiting. GENITOURINARY: No hematuria/dysuria. MUSCULOSKELETAL: No myagias/arthalgias. PSYCHIATRIC: The patient denies depression. NEUROLOGIC: No weakness Constitutional: alert Psych: no complaints Head: normocephalic ENMT: mucosa pink and moist Neck: jvd (9 cm water), supple Respiratory: diminished breath sounds (at bases/B) Cardiovascular: regular rate and rhythm Gastrointestinal: non-tender, soft Musculoskeletal: muscle tone (normal) Extremities: edema (trace/B) Neurological: other (No focal deficits) Results Result Diagram: 01/06/1751901/06/17519 Results 24 hrs Laboratory Tests Test 01/05/17 21:11 01/06/17 01:59 01/06/17 05:20 01/06/17 07:49 Bedside Glucose 201 154 120 White Blood Count 7.3 Red Blood Count 2.39 L Hemoglobin 7.5 L Hematocrit 23.5 L Mean Corpuscular Volume 98.3 Mean Corpuscular Hemoglobin 31.4 Mean Corpuscular Hemoglobin Concent 31.9 L Red Cell Distribution Width 14.1 Platelet Count 181 Mean Platelet Volume 10.3 Neutrophils % 69.7 Lymphocytes % 13.2 L Monocytes % 12.3 H Eosinophils % 3.6 Basophils % 0.6 Nucleated Red Blood Cells % 0.0 Neutrophils # 5.1 Lymphocytes # 1.0 Monocytes # 0.9 Eosinophils # 0.3 Basophils # 0.0 Nucleated Red Blood Cells # 0.0 Sodium Level 137 Potassium Level 3.6 Chloride Level 100 Carbon Dioxide Level 28 Anion Gap 13 Blood Urea Nitrogen 26 H Creatinine 4.09 H Glucose Level 117 Calcium Level 8.4 Test 01/06/17 11:52 01/06/17 14:06 01/06/17 17:07 Bedside Glucose 177 158 202 Medications Medications Current Medications Ondansetron HCl (Zofran Inj) 4 mg Q6H PRN IV NAUSEA AND/OR VOMITING Last administered on 12/13/16 01:13; Admin Dose 4 MG; Start 12/02/16 at 22:30 Miscellaneous Information 1 ea NOTE XX ; Start 12/02/16 at 23:00 Glucose (Glutose) 15 gm Q15M PRN PO DECREASED GLUCOSE; Start 12/02/16 at 23:00 Glucose (Glutose) 22.5 gm Q15M PRN PO DECREASED GLUCOSE; Start 12/02/16 at 23: 00 Dextrose (D50w Syringe) 25 ml Q15M PRN IV DECREASED GLUCOSE Last administered on 12/10/16 05:52; Admin Dose 25 ML; Start 12/02/16 at 23:00 Dextrose (D50w Syringe) 50 ml Q15M PRN IV DECREASED GLUCOSE; Start 12/02/16 at 23:00 Glucagon (Glucagen) 1 mg Q15M PRN IM DECREASED GLUCOSE; Start 12/02/16 at 23:00 Glucose (Glutose) 15 gm Q15M PRN BUCCAL DECREASED GLUCOSE; Start 12/02/16 at 23 :00 Gabapentin (Neurontin) 800 mg TID PO Last administered on 12/08/16 20:33; Admin Dose 800 MG; Start 12/03/16 at 09:00; Status Future Hold Meclizine HCl (Antivert) 25 mg TID PRN PO dizziness Last administered on 09:37; Admin Dose 25 MG; Start 12/02/16 at 23:00 Terazosin HCl (Hytrin) 5 mg HS PO Last administered on 12/07/16 20:28; Admin Dose 5 MG; Start 12/03/16 at 21:00; Status Future Hold Acetaminophen/ Hydrocodone Bitart ([place] (5/325)) 1 tab Q6H PRN PO PAIN LEVEL 4 -7 Last administered on 12/23/16 22:14; Admin Dose 1 TAB; Start 12/02/16 at 23: 30 Acetaminophen (Tylenol Tab) 650 mg Q6H PRN PO PAIN AND OR ELEVATED TEMP Last administered on 01/05/17 23:23; Admin Dose 650 MG; Start 12/02/16 at 23:30 Docusate Sodium (Colace) 100 mg BID PO Last administered on 12/08/16 20:32; Admin Dose 100 MG; Start 12/03/16 at 09:00; Status Future Hold Zolpidem Tartrate (Ambien) 5 mg HS PRN PO INSOMNIA Last administered on 20:53; Admin Dose 5 MG; Start 12/02/16 at 23:30 Benazepril HCl (Lotensin) 10 mg DAILY PO Last administered on 12/07/16 08:26; Admin Dose 10 MG; Start 12/04/16 at 09:00; Status Future Hold Morphine Sulfate (morphine) 2 mg Q2H PRN IV PAIN Last administered on 12/20/16 03:22; Admin Dose 2 MG; Start 12/09/16 at 09:30 Acetaminophen 650 mg 650 mg Q6H PRN [place] ELEVATED TEMPERATURE Last administered on 12/09/16 17:53; Admin Dose 650 MG; Start 12/09/16 at 17:00 Piperacillin Sod/ Tazobactam Sod (Zosyn 2.25gm/ 50ml (Pmx)) 50 ml @ 100 mls/hr Q12 IVPB Last administered on 01/06/17 09:02; Admin Dose 100 MLS/HR; Start at 21:00 Metoprolol Tartrate (Lopressor) 5 mg Q4H PRN IV HR>100 Last administered on 22:23; Admin Dose 5 MG; Start 12/09/16 at 17:48 Hydralazine HCl (Apresoline) 10 mg Q6H PRN IV SBP>150mm hg Last administered on 12/19/16 08:50; Admin Dose 10 MG; Start 12/11/16 at 10:30 Morphine Sulfate (morphine) 2 mg Q2H PRN IV PAIN LEVEL 4-7; Start 12/13/16 at 10 :00 Pantoprazole (Protonix Tab) 40 mg DAILY@06 PO Last administered on 01/06/17 05 :51; Admin Dose 40 MG; Start 12/23/16 at 06:00 Insulin Glargine (Lantus) 22 unit DAILY@20 SC Last administered on 01/05/17 21 :13; Admin Dose 22 UNIT; Start 12/25/16 at 20:00 Diagnostic Test (Pha) (Accu-Chek) 1 ea 02 XX Last administered on 01/06/17 02: 27; Admin Dose 1 EA; Start 12/30/16 at 02:00 Metoprolol Tartrate (Lopressor) 25 mg BID PO Last administered on 01/05/17 21: 16; Admin Dose 25 MG; Start 12/30/16 at 21:00 Aspirin (Halfprin) 81 mg DAILY PO Last administered on 01/06/17 09:02; Admin Dose 81 MG; Start 12/31/16 at 09:00 Apixaban (Eliquis) 2.5 mg BID PO Last administered on 01/06/17 09:03; Admin Dose 2.5 MG; Start 12/30/16 at 21:00 Amiodarone HCl (Cordarone) 200 mg DAILY PO Last administered on 01/06/17 09:05 ; Admin Dose 200 MG; Start 12/31/16 at 09:00 Collagenase (Santyl) 1 applic DAILY TOP Last administered on 01/06/17 09:04; Admin Dose 1 APPLIC; Start 01/04/17 at 09:00 VICENTE LSELIE January 06, 2017 17:46
[2017-01-06] MEDS: INSULIN GLARGINE [LANtus] 3 ML PEN SC SCH (20:57)
[2017-01-07] MEDS: ACETAMINOPHEN 325 MG TAB PO PRN (01:27)
[2017-01-07 04:51] VITALS: PULSE 83
[2017-01-07 05:38] LABS: ADD SCAN DIFF NO
[2017-01-07 05:43] LABS: BASOPHIL # 0.1 10^3/ul (0.0-0.1); BASOPHILS % 0.8 % (0.0-2.0); EOSINOPHILS # 0.2 10^3/ul (0.0-0.5); EOSINOPHILS % 2.9 % (0.0-7.0); HEMATOCRIT 24.8 % (42.0-52.0); LYMPHOCYTES % 14.8 % (15.0-51.0); MEAN CORPUSCULAR HEMOGLOBIN 31.1 pg (29.0-33.0); MEAN CORPUSCULAR HGB CONC 32.3 g/dl (32.0-37.0); MEAN CORPUSCULAR VOLUME 96.5 fl (82.0-101.0); MONOCYTE # 0.8 10^3/ul (0.3-0.9); MONOCYTES % 11.5 % (0.0-11.0); NEUTROPHIL # 4.6 10^3/ul (1.6-7.5); NEUTROPHILS % 69.5 % (39.0-77.0); PLATELET COUNT 187 10^3/UL (140-415); RED BLOOD COUNT 2.57 10^6/ul (4.70-6.10); RED CELL DISTRIBUTION WIDTH 14.1 % (11.5-14.5); WHITE BLOOD COUNT 6.6 10^3/ul (4.8-10.8)
[2017-01-07 06:04] LABS: POTASSIUM 3.7 mmol/L (3.5-5.1)
[2017-01-07 06:07] LABS: CALCIUM 8.4 mg/dl (8.4-10.2); CREATININE 3.42 mg/dl (0.61-1.24)
[2017-01-07] MEDS: PANTOPRAZOLE (EC) 40 MG TAB PO SCH (06:43)
[2017-01-07] MEDS: ALBUTEROL/IPRATROPIUM (NEB) 3 ML AMP HHN SCH ×3 (07:58→19:57)
[2017-01-07 08:01] VITALS: BP 102/72; RESP 22
[2017-01-07] MEDS: METOPROLOL 25 MG TAB PO SCH ×2 (08:21→22:46)
[2017-01-07] MEDS: APIXABAN 5 MG TABLET PO SCH ×2 (08:23→22:42)
[2017-01-07] MEDS: AMIODARONE 200 MG TAB PO SCH (08:23)
[2017-01-07] MEDS: ASPIRIN (EC) 81 MG TAB PO SCH (08:24)
[2017-01-07] MEDS: COLLAGENASE 30 GM TUBE TOP SCH (08:24)
[2017-01-07] MEDS: PIPER-TAZO 2.25 GM (PMX) 50 ML IVPB SCH ×2 (08:25→22:42)
[2017-01-07] MEDS: INSULIN ASPART [NOVOLOG] 3 ML PEN SC SCH ×7 (08:29→22:41)
--- NOTE | 2017-01-07 11:29 | RADRPT ---
Vent Rate: 80 bpm RR Interval: 0 msec ID Interval: 186 msec QRS Duration: 86 msec QT Interval: 412 msec QTC Interval: 475 msec P-R-T [place]: 62 - 66 - 0 degrees Normal sinus rhythm Left ventricular hypertrophy with repolarization abnormality Abnormal ECG Electronically Signed By: Feroz Mena [id number]
--- NOTE | 2017-01-07 13:10 | CONS ---
Date/Time of Note Date/Time of Note DATE: 01/07/17 TIME: 13:06 Assessment/Plan Assessment/Plan Chief Complaint/Hosp Course IMPRESSION: 1. Atrial fibrillation-most recently in SR with PAC/PVC when on tele and by ECG 01/07 today 2. Hypotension-resolved off of pat 3. Abnormal electrocardiogram with inferolateral T-wave inversions. 4. Respiratory failure-s/p intubation and remains 5. Nonhealing toe ulceration-vascular following 6. Peripheral arterial disease by arterial ultrasound of the lower extremities this admission. 7. Diabetes mellitus. 8. Fevers. 9. Positive troponin-downtrended 10.Bradycardia-improved/stable 11.-severe by echo 12.Cardiomyopathy-EF 40-45% by echo/36% by stress with no ischemia but positive scar Recc: -Now on med-surg -serial ecg -HD for volume removal as necessary/nephrology following -Continue baby asa/eliquis -Continue PO amio in attempt to maintain SR -low dose BB as tolerated only following HR closely -LHC/RHC likey when patient creatnine stable or definately to be continue of HD bench shear operator to truly assess degree of -Will hold on afterload reduction given severe and thus fixed afterload at valve orifice Problems: Consultation Date/Type/Reason Admit Date/Time Dec 02, 2016 at 21:01 Initial Consult Date 12/03/16 Type of Consultation: Cardiology Reason for Consultation CHF/ Referring Provider: VIET PARKER MD Exam/Review of Systems Vital Signs Vitals Vital Signs Date Time Temp Pulse Resp B/P Pulse Ox O2 Delivery O2 Flow Rate FiO2 01/07/17 08:13 98 2.0 01/07/17 08:01 97.8 87 22 102/72 01/07/17 07:58 30 01/06/17 20:28 Nasal Cannula Intake and Output 01/06/17 01/06/17 01/07/17 15:00 23:00 07:00 Intake Total 850 ml 950 ml 400 ml Output Total 2700 ml 400 ml Balance -1850 ml 550 ml 400 ml Exam Review of Systems: CONSTITUTIONAL: No fevers, chills. PULMONARY: No sob CARDIOVASCULAR: No chest pain/palpitations GASTROINTESTINAL: No nausea/vomiting. GENITOURINARY: No hematuria/dysuria. MUSCULOSKELETAL: No myagias/arthalgias. PSYCHIATRIC: The patient denies depression. NEUROLOGIC: mild generalized weakness Constitutional: alert Psych: no complaints Head: normocephalic ENMT: mucosa pink and moist Neck: jvd, supple Respiratory: diminished breath sounds (at bases/B) Cardiovascular: regular rate and rhythm Gastrointestinal: non-tender, soft Musculoskeletal: muscle tone Extremities: edema (none) Neurological: other (No focal deficits) Results Result Diagram: 01/07/17 0520 01/07/17 0520 Results 24 hrs Laboratory Tests Test 01/06/17 14:06 01/06/17 17:07 01/06/17 20:51 01/07/17 05:20 Bedside Glucose 158 202 136 White Blood Count 6.6 Red Blood Count 2.57 L Hemoglobin 8.0 L Hematocrit 24.8 L Mean Corpuscular Volume 96.5 Mean Corpuscular Hemoglobin 31.1 Mean Corpuscular Hemoglobin Concent 32.3 Red Cell Distribution Width 14.1 Platelet Count 187 Mean Platelet Volume 10.0 Neutrophils % 69.5 Lymphocytes % 14.8 L Monocytes % 11.5 H Eosinophils % 2.9 Basophils % 0.8 Nucleated Red Blood Cells % 0.0 Neutrophils # 4.6 Lymphocytes # 1.0 Monocytes # 0.8 Eosinophils # 0.2 Basophils # 0.1 Nucleated Red Blood Cells # 0.0 Sodium Level 140 Potassium Level 3.7 Chloride Level 100 Carbon Dioxide Level 28 Anion Gap 16 Blood Urea Nitrogen 20 Creatinine 3.42 H Glucose Level 169 Calcium Level 8.4 Test 01/07/17 08:02 01/07/17 12:18 Bedside Glucose 153 186 Medications Medications Current Medications Ondansetron HCl (Zofran Inj) 4 mg Q6H PRN IV NAUSEA AND/OR VOMITING Last administered on 12/13/16 01:13; Admin Dose 4 MG; Start 12/02/16 at 22:30 Miscellaneous Information 1 ea NOTE XX ; Start 12/02/16 at 23:00 Glucose (Glutose) 15 gm Q15M PRN PO DECREASED GLUCOSE; Start 12/02/16 at 23:00 Glucose (Glutose) 22.5 gm Q15M PRN PO DECREASED GLUCOSE; Start 12/02/16 at 23: 00 Dextrose (D50w Syringe) 25 ml Q15M PRN IV DECREASED GLUCOSE Last administered on 12/10/16 05:52; Admin Dose 25 ML; Start 12/02/16 at 23:00 Dextrose (D50w Syringe) 50 ml Q15M PRN IV DECREASED GLUCOSE; Start 12/02/16 at 23:00 Glucagon (Glucagen) 1 mg Q15M PRN IM DECREASED GLUCOSE; Start 12/02/16 at 23:00 Glucose (Glutose) 15 gm Q15M PRN BUCCAL DECREASED GLUCOSE; Start 12/02/16 at 23 :00 Gabapentin (Neurontin) 800 mg TID PO Last administered on 12/08/16 20:33; Admin Dose 800 MG; Start 12/03/16 at 09:00; Status Future Hold Meclizine HCl (Antivert) 25 mg TID PRN PO dizziness Last administered on 09:37; Admin Dose 25 MG; Start 12/02/16 at 23:00 Terazosin HCl (Hytrin) 5 mg HS PO Last administered on 12/07/16 20:28; Admin Dose 5 MG; Start 12/03/16 at 21:00; Status Future Hold Acetaminophen/ Hydrocodone Bitart ([place] (5/325)) 1 tab Q6H PRN PO PAIN LEVEL 4 -7 Last administered on 12/23/16 22:14; Admin Dose 1 TAB; Start 12/02/16 at 23: 30 Acetaminophen (Tylenol Tab) 650 mg Q6H PRN PO PAIN AND OR ELEVATED TEMP Last administered on 01/07/17 01:27; Admin Dose 650 MG; Start 12/02/16 at 23:30 Docusate Sodium (Colace) 100 mg BID PO Last administered on 12/08/16 20:32; Admin Dose 100 MG; Start 12/03/16 at 09:00; Status Future Hold Zolpidem Tartrate (Ambien) 5 mg HS PRN PO INSOMNIA Last administered on 20:53; Admin Dose 5 MG; Start 12/02/16 at 23:30 Benazepril HCl (Lotensin) 10 mg DAILY PO Last administered on 12/07/16 08:26; Admin Dose 10 MG; Start 12/04/16 at 09:00; Status Future Hold Morphine Sulfate (morphine) 2 mg Q2H PRN IV PAIN Last administered on 12/20/16 03:22; Admin Dose 2 MG; Start 12/09/16 at 09:30 Acetaminophen 650 mg 650 mg Q6H PRN [place] ELEVATED TEMPERATURE Last administered on 12/09/16 17:53; Admin Dose 650 MG; Start 12/09/16 at 17:00 Piperacillin Sod/ Tazobactam Sod (Zosyn 2.25gm/ 50ml (Pmx)) 50 ml @ 100 mls/hr Q12 IVPB Last administered on 01/07/17 08:25; Admin Dose 100 MLS/HR; Start at 21:00 Metoprolol Tartrate (Lopressor) 5 mg Q4H PRN IV HR>100 Last administered on 22:23; Admin Dose 5 MG; Start 12/09/16 at 17:48 Hydralazine HCl (Apresoline) 10 mg Q6H PRN IV SBP>150mm hg Last administered on 12/19/16 08:50; Admin Dose 10 MG; Start 12/11/16 at 10:30 Morphine Sulfate (morphine) 2 mg Q2H PRN IV PAIN LEVEL 4-7; Start 12/13/16 at 10 :00 Pantoprazole (Protonix Tab) 40 mg DAILY@06 PO Last administered on 01/07/17 06 :43; Admin Dose 40 MG; Start 12/23/16 at 06:00 Insulin Glargine (Lantus) 22 unit DAILY@20 SC Last administered on 01/06/17 20 :57; Admin Dose 22 UNIT; Start 12/25/16 at 20:00 Diagnostic Test (Pha) (Accu-Chek) 1 ea 02 XX Last administered on 01/06/17 02: 27; Admin Dose 1 EA; Start 12/30/16 at 02:00 Metoprolol Tartrate (Lopressor) 25 mg BID PO Last administered on 01/05/17 21: 16; Admin Dose 25 MG; Start 12/30/16 at 21:00 Aspirin (Halfprin) 81 mg DAILY PO Last administered on 01/07/17 08:24; Admin Dose 81 MG; Start 12/31/16 at 09:00 Apixaban (Eliquis) 2.5 mg BID PO Last administered on 01/07/17 08:23; Admin Dose 2.5 MG; Start 12/30/16 at 21:00 Amiodarone HCl (Cordarone) 200 mg DAILY PO Last administered on 01/07/17 08:23 ; Admin Dose 200 MG; Start 12/31/16 at 09:00 Collagenase (Santyl) 1 applic DAILY TOP Last administered on 01/07/17 08:24; Admin Dose 1 APPLIC; Start 01/04/17 at 09:00 VICENTE LESLIE January 07, 2017 13:10
--- NOTE | 2017-01-07 14:04 | PN ---
Date/Time of Note Date/Time of Note DATE: 01/07/17 TIME: 14:02 Assessment/Plan Lines/Catheters IV Catheter Type (from [facility]): permacath [place] in Place (from [facility]): No Assessment/Plan Chief Complaint/Hosp Course -Bilateral lower extremity atherosclerosis with left first toe plantar ulcer: It seems the patient has developed a first toe plantar ulcer,and diabetic foot infection which may be related to his fall over a week ago. The bilateral lower extremity noninvasive vascular studies demonstrated some infrapopliteal disease as the patient does not have palpable pedal pulses and has been a long time smoker. -No vascular intervention for now. Will follow the wound progress closely and would recommend an angiogram with possible intervention if poor wound healing arises in the near future. Will follow as outpatient -ATN: S/P permanent catheter and likely will need a fistula creation. Will follow as outpt -Optimize vascular status (BP meds, diet, nutrition, exercise, sugar control, antiplatelets, weight loss). -Discussed smoking cessation with the patient and he understands. -Discussed findings, plan and management with the patient with a certified media supervisor and he understands. -Thank you for allowing us to partake in the care of your patient. Please call with any questions. Problems: Subjective 24 Hr Interval Summary Constitutional: no complaints Exam/Review of Systems Vital Signs Vitals Vital Signs Date Time Temp Pulse Resp B/P Pulse Ox O2 Delivery O2 Flow Rate FiO2 01/07/17 08:13 98 2.0 01/07/17 08:01 97.8 87 22 102/72 01/07/17 07:58 30 01/06/17 20:28 Nasal Cannula Intake and Output 01/06/17 01/06/17 01/07/17 15:00 23:00 07:00 Intake Total 850 ml 950 ml 400 ml Output Total 2700 ml 400 ml Balance -1850 ml 550 ml 400 ml Exam Free Text/Dictation GENERAL: Alert and oriented x3, PULMONARY: Clear to auscultation bilaterally CARDIOVASCULAR: S1, S2 present ABDOMEN: Soft, nontender, nondistended. Bowel sounds positive. EXTREMITIES: Right lower extremity: Palpable femoral pulse, nonpalpable pedal pulse. Motor , sensory intact. Cap refill 3 to 4 seconds. No ulcers identified. Left lower extremity: Palpable femoral pulse, nonpalpable pedal pulse. Motor and sensory intact. Cap refill 3 to 4 seconds. First toe with erythema and edema resolved. Plantar ulcer of 1st metatarsal with callus and eschar Results Result Diagram: 01/07/17 0520 01/07/17 0520 KAROLINE SHOEMAKER MD January 07, 2017 14:04
--- NOTE | 2017-01-07 15:18 | RADRPT ---
PROCEDURE: XR Chest. CLINICAL INDICATION: Shortness of breath. TECHNIQUE: Single frontal view. COMPARISON: 01/04/2017. FINDINGS: There is bilateral pulmonary air space disease consistent with pulmonary edema, unchanged. The tunn eled right internal jugular vein dialysis catheter remains in satisfactory position. The heart is enlarged. There is calcification in the aorta consistent with atherosclerosis. There are small bilateral pleural effusions, unchanged on the right and improved on the left. There is no pneumothorax. IMPRESSION: 1. Smaller left pleural effusion. 2. No other change from 01/04/2017. RPTAT: QQ .Bruce Zurita MD, MD Date Time Electronically viewed and signed by .Bruce Zurita MD, on 01/07/2017 15:18 .R/
--- NOTE | 2017-01-07 15:34 | PN ---
Date/Time of Note Date/Time of Note DATE: 01/07/17 TIME: 15:31 Assessment/Plan VTE Prophylaxis VTE Prophylaxis Intervention: SCD's Lines/Catheters IV [facility]ter Type (from [facility]): permacath Urinary Cath still in place: No Assessment/Plan Chief Complaint/Hosp Course Patient is awake alert, continues on BiPAP overnight and during the day, patient is currently off BiPAP, on oxygen via nasal cannula, encourage incentive spirometer, patient is status post 1 units of packed red blood cells per transfusion, hemoglobin is 8 today. Assessment/Plan - Acute kidney injury secondary to ATN. Continued on hemodialysis. Dr. Remy is following in nephrology consultation. - Acute respiratory failure secondary to pulmonary edema, resolved. Dr. Alvarez is following from pulmonology standpoint. - Cellulitis of left foot, 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 and left fourth proximal phalanx per bone scan. Continue antibiotics per ID. - Bilateral pleural effusion, this post right sided thoracentesis with removal of 900 cc of fluid. - Acute to subacute right occipital lobe ischemic infarct per CT, Dr Morris is following in neurology consultation. - Paroxysmal atrial fibrillation and positive troponin. Dr. Cobian is following and cardiology consultation. Status post Lexiscan on 12/24 with no ischemia but positive scar. - S/P fungemia, status post treatment. Dr. Rashaun pritchard is following in infection disease consultation. - Diabetic foot ulcer of the left foot, Dr Lin is following in podiatry consultation. - Aortic stenosis - Diastolic dysfunction congestive heart failure with preserved ejection fraction of 60%. - DM, Hgb A1c is 8.7, continue Lantus and pre-meal NovoLog and NovoLog per sliding scale. -S/p traumatic hematuria, Dr. Grey urology consult is following. Further recommendations based on clinical course. Plan of care discussed with Dr. Heredia. Problems: Exam/Review of Systems Vital Signs Vitals Vital Signs Date Time Temp Pulse Resp B/P Pulse Ox O2 Delivery O2 Flow Rate FiO2 01/07/17 14:56 2.0 01/07/17 14:50 88 20 96 Nasal Cannula 01/07/17 08:01 97.8 102/72 01/07/17 07:58 30 Intake and Output 01/06/17 01/06/17 01/07/17 15:00 23:00 07:00 Intake Total 850 ml 950 ml 400 ml Output Total 2700 ml 400 ml Balance -1850 ml 550 ml 400 ml Exam Constitutional: awake, alert Psych: no complaints Head: atraumatic, normocephalic Eyes: nl conjunctiva ENMT: nl external ears & nose Neck: non-tender, supple Respiratory: clear to auscultation, normal air movement Cardiovascular: nl pulses, regular rate and rhythm, systolic murmur Gastrointestinal: non-tender, soft Musculoskeletal: nl extremities to inspection Extremities: normal pulses Neurological: alert *3 Skin: nl turgor, left big toe ulcer. R IJ HD cath Results Result Diagram: 01/07/17 0520 01/07/17 0520 Results 24 hrs Laboratory Tests Test 01/06/17 17:07 01/06/17 20:51 01/07/17 05:20 01/07/17 08:02 Bedside Glucose 202 136 153 White Blood Count 6.6 Red Blood Count 2.57 L Hemoglobin 8.0 L Hematocrit 24.8 L Mean Corpuscular Volume 96.5 Mean Corpuscular Hemoglobin 31.1 Mean Corpuscular Hemoglobin Concent 32.3 Red Cell Distribution Width 14.1 Platelet Count 187 Mean Platelet Volume 10.0 Neutrophils % 69.5 Lymphocytes % 14.8 L Monocytes % 11.5 H Eosinophils % 2.9 Basophils % 0.8 Nucleated Red Blood Cells % 0.0 Neutrophils # 4.6 Lymphocytes # 1.0 Monocytes # 0.8 Eosinophils # 0.2 Basophils # 0.1 Nucleated Red Blood Cells # 0.0 Sodium Level 140 Potassium Level 3.7 Chloride Level 100 Carbon Dioxide Level 28 Anion Gap 16 Blood Urea Nitrogen 20 Creatinine 3.42 H Glucose Level 169 Calcium Level 8.4 Test 01/07/17 12:18 Bedside Glucose 186 Medications Medications Current Medications Ondansetron HCl (Zofran Inj) 4 mg Q6H PRN IV NAUSEA AND/OR VOMITING Last administered on 12/13/16 01:13; Admin Dose 4 MG; Start 12/02/16 at 22:30 Miscellaneous Information 1 ea NOTE XX ; Start 12/02/16 at 23:00 Glucose (Glutose) 15 gm Q15M PRN PO DECREASED GLUCOSE; Start 12/02/16 at 23:00 Glucose (Glutose) 22.5 gm Q15M PRN PO DECREASED GLUCOSE; Start 12/02/16 at 23: 00 Dextrose (D50w Syringe) 25 ml Q15M PRN IV DECREASED GLUCOSE Last administered on 12/10/16 05:52; Admin Dose 25 ML; Start 12/02/16 at 23:00 Dextrose (D50w Syringe) 50 ml Q15M PRN IV DECREASED GLUCOSE; Start 12/02/16 at 23:00 Glucagon (Glucagen) 1 mg Q15M PRN IM DECREASED GLUCOSE; Start 12/02/16 at 23:00 Glucose (Glutose) 15 gm Q15M PRN BUCCAL DECREASED GLUCOSE; Start 12/02/16 at 23 :00 Gabapentin (Neurontin) 800 mg TID PO Last administered on 12/08/16 20:33; Admin Dose 800 MG; Start 12/03/16 at 09:00; Status Future Hold Meclizine HCl (Antivert) 25 mg TID PRN PO dizziness Last administered on 09:37; Admin Dose 25 MG; Start 12/02/16 at 23:00 Terazosin HCl (Hytrin) 5 mg HS PO Last administered on 12/07/16 20:28; Admin Dose 5 MG; Start 12/03/16 at 21:00; Status Future Hold Acetaminophen/ Hydrocodone Bitart ([place] (5/325)) 1 tab Q6H PRN PO PAIN LEVEL 4 -7 Last administered on 12/23/16 22:14; Admin Dose 1 TAB; Start 12/02/16 at 23: 30 Acetaminophen (Tylenol Tab) 650 mg Q6H PRN PO PAIN AND OR ELEVATED TEMP Last administered on 01/07/17 01:27; Admin Dose 650 MG; Start 12/02/16 at 23:30 Docusate Sodium (Colace) 100 mg BID PO Last administered on 12/08/16 20:32; Admin Dose 100 MG; Start 12/03/16 at 09:00; Status Future Hold Zolpidem Tartrate (Ambien) 5 mg HS PRN PO INSOMNIA Last administered on 20:53; Admin Dose 5 MG; Start 12/02/16 at 23:30 Benazepril HCl (Lotensin) 10 mg DAILY PO Last administered on 12/07/16 08:26; Admin Dose 10 MG; Start 12/04/16 at 09:00; Status Future Hold Morphine Sulfate (morphine) 2 mg Q2H PRN IV PAIN Last administered on 12/20/16 03:22; Admin Dose 2 MG; Start 12/09/16 at 09:30 Acetaminophen 650 mg 650 mg Q6H PRN [place] ELEVATED TEMPERATURE Last administered on 12/09/16 17:53; Admin Dose 650 MG; Start 12/09/16 at 17:00 Piperacillin Sod/ Tazobactam Sod (Zosyn 2.25gm/ 50ml (Pmx)) 50 ml @ 100 mls/hr Q12 IVPB Last administered on 01/07/17 08:25; Admin Dose 100 MLS/HR; Start at 21:00 Metoprolol Tartrate (Lopressor) 5 mg Q4H PRN IV HR>100 Last administered on 22:23; Admin Dose 5 MG; Start 12/09/16 at 17:48 Hydralazine HCl (Apresoline) 10 mg Q6H PRN IV SBP>150mm hg Last administered on 12/19/16 08:50; Admin Dose 10 MG; Start 12/11/16 at 10:30 Morphine Sulfate (morphine) 2 mg Q2H PRN IV PAIN LEVEL 4-7; Start 12/13/16 at 10 :00 Pantoprazole (Protonix Tab) 40 mg DAILY@06 PO Last administered on 01/07/17 06 :43; Admin Dose 40 MG; Start 12/23/16 at 06:00 Insulin Glargine (Lantus) 22 unit DAILY@20 SC Last administered on 01/06/17 20 :57; Admin Dose 22 UNIT; Start 12/25/16 at 20:00 Diagnostic Test (Pha) (Accu-Chek) 1 ea 02 XX Last administered on 01/06/17 02: 27; Admin Dose 1 EA; Start 12/30/16 at 02:00 Metoprolol Tartrate (Lopressor) 25 mg BID PO Last administered on 01/05/17 21: 16; Admin Dose 25 MG; Start 12/30/16 at 21:00 Aspirin (Halfprin) 81 mg DAILY PO Last administered on 01/07/17 08:24; Admin Dose 81 MG; Start 12/31/16 at 09:00 Apixaban (Eliquis) 2.5 mg BID PO Last administered on 01/07/17 08:23; Admin Dose 2.5 MG; Start 12/30/16 at 21:00 Amiodarone HCl (Cordarone) 200 mg DAILY PO Last administered on 01/07/17 08:23 ; Admin Dose 200 MG; Start 12/31/16 at 09:00 Collagenase (Santyl) 1 applic DAILY TOP Last administered on 01/07/17 08:24; Admin Dose 1 APPLIC; Start 01/04/17 at 09:00 KIMBERLY NOYOLA January 07, 2017 15:34
--- NOTE | 2017-01-07 17:00 | CONS ---
Date/Time of Note Date/Time of Note DATE: 01/07/17 TIME: 16:59 Assessment/Plan Assessment/Plan Additional Assessment/Plan 1. Oliguric to Anuric Acute kidney injury 2/2 ATN- started on HD on 12/09/16 for acute fluid overload and Pulmonary edema 2. acute resp failure intubated on ventilator -now extubated on 12/10/2016- then again reintubated on 12/13/2016- now self extubated on 12/18/16 3. Moderate to large right pleural effusion s/p Right thoracentesis 900 cc drained on 12/16/16 2. Left foot diabetic ulcer/cellulitis currently on IV antibiotics, Zosyn and vancomycin. 3. History of diabetes mellitus, insulin-dependent with lower extremity neuropathy. 4. History of hypertension. 5. History of aortic stenosis with diastolic dysfunction with ejection fraction 60% on echocardiogram. PLAN: s/p Right chest Permacath placement for dialysis access, plan for HD today and tomorrow, then he will be on TTS Schedule HD placement done at [facility] - done- pt gets HD on , , and ady will continue to follow up Consultation Date/Type/Reason Admit Date/Time Dec 02, 2016 at 21:01 Initial Consult Date Type of Consultation: NEPHROLOGY Referring Provider: VIET PARKER MD 24 HR Interval Summary Free Text/Dictation plan for HD today, BP stable, afebrile, less SOB Exam/Review of Systems Vital Signs Vitals Vital Signs Date Time Temp Pulse Resp B/P Pulse Ox O2 Delivery O2 Flow Rate FiO2 01/07/17 14:56 2.0 01/07/17 14:50 88 20 96 Nasal Cannula 01/07/17 08:01 97.8 102/72 01/07/17 07:58 30 Intake and Output 01/06/17 01/06/17 01/07/17 15:00 23:00 07:00 Intake Total 850 ml 950 ml 400 ml Output Total 2700 ml 400 ml Balance -1850 ml 550 ml 400 ml Exam Constitutional: alert Neck: supple Respiratory: crackles/rales Cardiovascular: nl pulses, regular rate and rhythm Gastrointestinal: non-tender, soft Musculoskeletal: nl extremities to inspection Extremities: No edema Neurological: MANAGEMENT LIAISON II-XII intact, nl mental status, nl speech Skin: rash or lesions (L 1st toe: plantar aspect has eschar, dry non-TTP) Results Result Diagram: 01/07/17 0520 01/07/17 0520 Results 24 hrs Laboratory Tests Test 01/06/17 17:07 01/06/17 20:51 01/07/17 05:20 01/07/17 08:02 Bedside Glucose 202 136 153 White Blood Count 6.6 Red Blood Count 2.57 L Hemoglobin 8.0 L Hematocrit 24.8 L Mean Corpuscular Volume 96.5 Mean Corpuscular Hemoglobin 31.1 Mean Corpuscular Hemoglobin Concent 32.3 Red Cell Distribution Width 14.1 Platelet Count 187 Mean Platelet Volume 10.0 Neutrophils % 69.5 Lymphocytes % 14.8 L Monocytes % 11.5 H Eosinophils % 2.9 Basophils % 0.8 Nucleated Red Blood Cells % 0.0 Neutrophils # 4.6 Lymphocytes # 1.0 Monocytes # 0.8 Eosinophils # 0.2 Basophils # 0.1 Nucleated Red Blood Cells # 0.0 Sodium Level 140 Potassium Level 3.7 Chloride Level 100 Carbon Dioxide Level 28 Anion Gap 16 Blood Urea Nitrogen 20 Creatinine 3.42 H Glucose Level 169 Calcium Level 8.4 Test 01/07/17 12:18 Bedside Glucose 186 Medications Medications Current Medications Ondansetron HCl (Zofran Inj) 4 mg Q6H PRN IV NAUSEA AND/OR VOMITING Last administered on 12/13/16 01:13; Admin Dose 4 MG; Start 12/02/16 at 22:30 Miscellaneous Information 1 ea NOTE XX ; Start 12/02/16 at 23:00 Glucose (Glutose) 15 gm Q15M PRN PO DECREASED GLUCOSE; Start 12/02/16 at 23:00 Glucose (Glutose) 22.5 gm Q15M PRN PO DECREASED GLUCOSE; Start 12/02/16 at 23: 00 Dextrose (D50w Syringe) 25 ml Q15M PRN IV DECREASED GLUCOSE Last administered on 12/10/16 05:52; Admin Dose 25 ML; Start 12/02/16 at 23:00 Dextrose (D50w Syringe) 50 ml Q15M PRN IV DECREASED GLUCOSE; Start 12/02/16 at 23:00 Glucagon (Glucagen) 1 mg Q15M PRN IM DECREASED GLUCOSE; Start 12/02/16 at 23:00 Glucose (Glutose) 15 gm Q15M PRN BUCCAL DECREASED GLUCOSE; Start 12/02/16 at 23 :00 Gabapentin (Neurontin) 800 mg TID PO Last administered on 12/08/16 20:33; Admin Dose 800 MG; Start 12/03/16 at 09:00; Status Future Hold Meclizine HCl (Antivert) 25 mg TID PRN PO dizziness Last administered on 09:37; Admin Dose 25 MG; Start 12/02/16 at 23:00 Terazosin HCl (Hytrin) 5 mg HS PO Last administered on 12/07/16 20:28; Admin Dose 5 MG; Start 12/03/16 at 21:00; Status Future Hold Acetaminophen/ Hydrocodone Bitart ([place] (5/325)) 1 tab Q6H PRN PO PAIN LEVEL 4 -7 Last administered on 12/23/16 22:14; Admin Dose 1 TAB; Start 12/02/16 at 23: 30 Acetaminophen (Tylenol Tab) 650 mg Q6H PRN PO PAIN AND OR ELEVATED TEMP Last administered on 01/07/17 01:27; Admin Dose 650 MG; Start 12/02/16 at 23:30 Docusate Sodium (Colace) 100 mg BID PO Last administered on 12/08/16 20:32; Admin Dose 100 MG; Start 12/03/16 at 09:00; Status Future Hold Zolpidem Tartrate (Ambien) 5 mg HS PRN PO INSOMNIA Last administered on 20:53; Admin Dose 5 MG; Start 12/02/16 at 23:30 Benazepril HCl (Lotensin) 10 mg DAILY PO Last administered on 12/07/16 08:26; Admin Dose 10 MG; Start 12/04/16 at 09:00; Status Future Hold Morphine Sulfate (morphine) 2 mg Q2H PRN IV PAIN Last administered on 12/20/16 03:22; Admin Dose 2 MG; Start 12/09/16 at 09:30 Acetaminophen 650 mg 650 mg Q6H PRN [place] ELEVATED TEMPERATURE Last administered on 12/09/16 17:53; Admin Dose 650 MG; Start 12/09/16 at 17:00 Piperacillin Sod/ Tazobactam Sod (Zosyn 2.25gm/ 50ml (Pmx)) 50 ml @ 100 mls/hr Q12 IVPB Last administered on 01/07/17 08:25; Admin Dose 100 MLS/HR; Start at 21:00 Metoprolol Tartrate (Lopressor) 5 mg Q4H PRN IV HR>100 Last administered on 22:23; Admin Dose 5 MG; Start 12/09/16 at 17:48 Hydralazine HCl (Apresoline) 10 mg Q6H PRN IV SBP>150mm hg Last administered on 12/19/16 08:50; Admin Dose 10 MG; Start 12/11/16 at 10:30 Morphine Sulfate (morphine) 2 mg Q2H PRN IV PAIN LEVEL 4-7; Start 12/13/16 at 10 :00 Pantoprazole (Protonix Tab) 40 mg DAILY@06 PO Last administered on 01/07/17 06 :43; Admin Dose 40 MG; Start 12/23/16 at 06:00 Insulin Glargine (Lantus) 22 unit DAILY@20 SC Last administered on 01/06/17 20 :57; Admin Dose 22 UNIT; Start 12/25/16 at 20:00 Diagnostic Test (Pha) (Accu-Chek) 1 ea 02 XX Last administered on 01/06/17 02: 27; Admin Dose 1 EA; Start 12/30/16 at 02:00 Metoprolol Tartrate (Lopressor) 25 mg BID PO Last administered on 01/05/17 21: 16; Admin Dose 25 MG; Start 12/30/16 at 21:00 Aspirin (Halfprin) 81 mg DAILY PO Last administered on 01/07/17 08:24; Admin Dose 81 MG; Start 12/31/16 at 09:00 Apixaban (Eliquis) 2.5 mg BID PO Last administered on 01/07/17 08:23; Admin Dose 2.5 MG; Start 12/30/16 at 21:00 Amiodarone HCl (Cordarone) 200 mg DAILY PO Last administered on 01/07/17 08:23 ; Admin Dose 200 MG; Start 12/31/16 at 09:00 Collagenase (Santyl) 1 applic DAILY TOP Last administered on 01/07/17 08:24; Admin Dose 1 APPLIC; Start 01/04/17 at 09:00 TASHIA MCGARRY MD January 07, 2017 17:00
--- NOTE | 2017-01-07 19:32 | RADRPT ---
PROCEDURE: US upper extremity arterial. CLINICAL INDICATION: Pain, end-stage renal disease TECHNIQUE: Multiple sonographic images of the bilateral upper extremity arteries was obtained util izing grayscale, color-flow, compressive sonography and doppler imaging. The images were reviewed o n a PACS workstation. COMPARISON: None. FINDINGS: Velocities and waveforms were obtained as described below. Right arm Right subclavian artery: 50 cm/s; biphasic waveforms Right axillary artery: 47 cm/s; biphasic waveforms Right brachial artery: 75 cm/s; biphasic waveforms Right radial artery: 31 cm/s; biphasic waveforms Right ulnar artery: 44 cm/s; biphasic waveforms Left arm Left subclavian artery: 56 cm/s; biphasic waveforms Left axillary artery: 60 cm/s; biphasic waveforms Left brachial artery: 56 cm/s; biphasic waveforms Left radial artery: 36 cm/s; biphasic waveforms Left ulnar artery: 39 cm/s; biphasic waveforms IMPRESSION: Unremarkable bilateral upper extremity arterial Doppler ultrasound. RPTAT: AA .Alli Peterson MD, MD Date Time Electronically viewed and signed by .Alli Peterson MD, MD on 01/07/2017 19:32 .S/
--- NOTE | 2017-01-07 19:35 | RADRPT ---
PROCEDURE: US bilateral upper extremity Venous. CLINICAL INDICATION: End-stage renal disease, vein mapping TECHNIQUE: Multiple sonographic images of the bilateral upper lower extremity deep an superficial venous system was obtained utilizing grayscale, color-flow, compressive sonography and doppler imagi ng with augmentation. Measurements were performed. The images were reviewed on a PACS workstation. COMPARISON: None. FINDINGS: The bilateral subclavian, axillary and brachial veins are patent. RIGHT Right basilic vein size: Proximal: 6.8 mm Mid aspect: 4.3 mm Distal: 2.0 mm Right basilic vein size in the forearm: Proximal: 1.4 mm Mid aspect: 1.3 mm Distal: 1.4 mm Right cephalic vein size: Proximal: 1.7 mm Mid aspect: 1.8 mm Distal: 1.5 mm Right cephalic vein size in the forearm: Proximal: 1.2 mm Mid aspect: 1.3 mm Distal: 1.0 mm LEFT Left basilic vein size: Proximal: 5.0 mm Mid aspect: 3.9 mm Distal: 1.8 mm Left basilic vein size in the forearm: Proximal: 1.2 mm Mid aspect: 1.2 mm Distal: 1.0 mm Left cephalic vein size: Proximal: 1.8 mm Mid aspect: 1.2 mm Distal: 1.2 mm Left cephalic vein size in the forearm: Proximal: 1.1 mm Mid aspect: 1.2 mm Distal: 1.1 mm IMPRESSION: Vein mapping as described. RPTAT: AA .Alli Peterson MD, Date Time Electronically viewed and signed by .Alli Peterson MD, MD on 01/07/2017 19:34 .S/
[2017-01-07 19:58] VITALS: PULSE 84
[2017-01-07 20:18] VITALS: BP 108/55; RESP 18
--- NOTE | 2017-01-07 20:31 | PN ---
Date/Time of Note Date/Time of Note DATE: 01/07/17 TIME: 20:27 Assessment/Plan VTE Prophylaxis VTE Prophylaxis Intervention: SCD's Lines/Catheters IV [facility] permacath Urinary Cath still in place: No Assessment/Plan Chief Complaint/Hosp Course Patient is awake, continues on BiPAP overnight and during the day, was placed on Bipap 2 times before lunch, patient is currently off BiPAP, on oxygen via nasal cannula, encourage incentive spirometer, patient is status post 1 units of packed red blood cells per transfusion, hemoglobin is 8 today. Continue to monitor respiratory status in house, reassess tomorrow. Assessment/Plan - Acute kidney injury secondary to ATN. Continued on hemodialysis. Dr. Remy is following in nephrology consultation. - Acute respiratory failure secondary to pulmonary edema, resolved. Dr. Alvarez is following from pulmonology standpoint. - Cellulitis of left foot, 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 and left fourth proximal phalanx per bone scan. Continue antibiotics per ID. - Bilateral pleural effusion, this post right sided thoracentesis with removal of 900 cc of fluid. - Acute to subacute right occipital lobe ischemic infarct per CT, Dr Morris is following in neurology consultation. - Paroxysmal atrial fibrillation and positive troponin. Dr. Cobian is following and cardiology consultation. Status post Lexiscan on 12/24 with no ischemia but positive scar. - S/P fungemia, status post treatment. Dr. Rashaun pritchard is following in infection disease consultation. - Diabetic foot ulcer of the left foot, Dr Lin is following in podiatry consultation. - Aortic stenosis - Diastolic dysfunction congestive heart failure with preserved ejection fraction of 60%. - DM, Hgb A1c is 8.7, continue Lantus and pre-meal NovoLog and NovoLog per sliding scale. -S/p traumatic hematuria, Dr. Grey urology consult is following. Further recommendations based on clinical course. Plan of care discussed with Dr. Heredia. Problems: Exam/Review of Systems Vital Signs Vitals Vital Signs Date Time Temp Pulse Resp B/P Pulse Ox O2 Delivery O2 Flow Rate FiO2 01/07/17 20:18 97.4 85 18 108/55 100 01/07/17 19:58 30 01/07/17 14:56 2.0 01/07/17 14:50 Nasal Cannula Intake and Output 01/06/17 01/06/17 01/07/17 15:00 23:00 07:00 Intake Total 850 ml 950 ml 400 ml Output Total 2700 ml 400 ml Balance -1850 ml 550 ml 400 ml Exam Constitutional: alert Psych: confusion (at times) Head: normocephalic Respiratory: diminished breath sounds Cardiovascular: nl pulses Gastrointestinal: non-tender, soft Extremities: normal pulses Results Result Diagram: 01/07/1751901/07/17 0520 Results 24 hrs Laboratory Tests Test 01/06/17 20:51 01/07/17 05:20 01/07/17 08:02 01/07/17 12:18 Bedside Glucose 136 153 186 White Blood Count 6.6 Red Blood Count 2.57 L Hemoglobin 8.0 L Hematocrit 24.8 L Mean Corpuscular Volume 96.5 Mean Corpuscular Hemoglobin 31.1 Mean Corpuscular Hemoglobin Concent 32.3 Red Cell Distribution Width 14.1 Platelet Count 187 Mean Platelet Volume 10.0 Neutrophils % 69.5 Lymphocytes % 14.8 L Monocytes % 11.5 H Eosinophils % 2.9 Basophils % 0.8 Nucleated Red Blood Cells % 0.0 Neutrophils # 4.6 Lymphocytes # 1.0 Monocytes # 0.8 Eosinophils # 0.2 Basophils # 0.1 Nucleated Red Blood Cells # 0.0 Sodium Level 140 Potassium Level 3.7 Chloride Level 100 Carbon Dioxide Level 28 Anion Gap 16 Blood Urea Nitrogen 20 Creatinine 3.42 H Glucose Level 169 Calcium Level 8.4 Test 01/07/17 18:03 Bedside Glucose 209 Medications Medications Current Medications Ondansetron HCl (Zofran Inj) 4 mg Q6H PRN IV NAUSEA AND/OR VOMITING Last administered on 12/13/16 01:13; Admin Dose 4 MG; Start 12/02/16 at 22:30 Miscellaneous Information 1 ea NOTE XX ; Start 12/02/16 at 23:00 Glucose (Glutose) 15 gm Q15M PRN PO DECREASED GLUCOSE; Start 12/02/16 at 23:00 Glucose (Glutose) 22.5 gm Q15M PRN PO DECREASED GLUCOSE; Start 12/02/16 at 23: 00 Dextrose (D50w Syringe) 25 ml Q15M PRN IV DECREASED GLUCOSE Last administered on 12/10/16 05:52; Admin Dose 25 ML; Start 12/02/16 at 23:00 Dextrose (D50w Syringe) 50 ml Q15M PRN IV DECREASED GLUCOSE; Start 12/02/16 at 23:00 Glucagon (Glucagen) 1 mg Q15M PRN IM DECREASED GLUCOSE; Start 12/02/16 at 23:00 Glucose (Glutose) 15 gm Q15M PRN BUCCAL DECREASED GLUCOSE; Start 12/02/16 at 23 :00 Gabapentin (Neurontin) 800 mg TID PO Last administered on 12/08/16 20:33; Admin Dose 800 MG; Start 12/03/16 at 09:00; Status Future Hold Meclizine HCl (Antivert) 25 mg TID PRN PO dizziness Last administered on 09:37; Admin Dose 25 MG; Start 12/02/16 at 23:00 Terazosin HCl (Hytrin) 5 mg HS PO Last administered on 12/07/16 20:28; Admin Dose 5 MG; Start 12/03/16 at 21:00; Status Future Hold Acetaminophen/ Hydrocodone Bitart ([place] (5/325)) 1 tab Q6H PRN PO PAIN LEVEL 4 -7 Last administered on 12/23/16 22:14; Admin Dose 1 TAB; Start 12/02/16 at 23: 30 Acetaminophen (Tylenol Tab) 650 mg Q6H PRN PO PAIN AND OR ELEVATED TEMP Last administered on 01/07/17 01:27; Admin Dose 650 MG; Start 12/02/16 at 23:30 Docusate Sodium (Colace) 100 mg BID PO Last administered on 12/08/16 20:32; Admin Dose 100 MG; Start 12/03/16 at 09:00; Status Future Hold Zolpidem Tartrate (Ambien) 5 mg HS PRN PO INSOMNIA Last administered on 20:53; Admin Dose 5 MG; Start 12/02/16 at 23:30 Benazepril HCl (Lotensin) 10 mg DAILY PO Last administered on 12/07/16 08:26; Admin Dose 10 MG; Start 12/04/16 at 09:00; Status Future Hold Morphine Sulfate (morphine) 2 mg Q2H PRN IV PAIN Last administered on 12/20/16 03:22; Admin Dose 2 MG; Start 12/09/16 at 09:30 Acetaminophen 650 mg 650 mg Q6H PRN [place] ELEVATED TEMPERATURE Last administered on 12/09/16 17:53; Admin Dose 650 MG; Start 12/09/16 at 17:00 Piperacillin Sod/ Tazobactam Sod (Zosyn 2.25gm/ 50ml (Pmx)) 50 ml @ 100 mls/hr Q12 IVPB Last administered on 01/07/17 08:25; Admin Dose 100 MLS/HR; Start at 21:00 Metoprolol Tartrate (Lopressor) 5 mg Q4H PRN IV HR>100 Last administered on 22:23; Admin Dose 5 MG; Start 12/09/16 at 17:48 Hydralazine HCl (Apresoline) 10 mg Q6H PRN IV SBP>150mm hg Last administered on 12/19/16 08:50; Admin Dose 10 MG; Start 12/11/16 at 10:30 Morphine Sulfate (morphine) 2 mg Q2H PRN IV PAIN LEVEL 4-7; Start 12/13/16 at 10 :00 Pantoprazole (Protonix Tab) 40 mg DAILY@06 PO Last administered on 01/07/17 06 :43; Admin Dose 40 MG; Start 12/23/16 at 06:00 Insulin Glargine (Lantus) 22 unit DAILY@20 SC Last administered on 01/06/17 20 :57; Admin Dose 22 UNIT; Start 12/25/16 at 20:00 Diagnostic Test (Pha) (Accu-Chek) 1 ea 02 XX Last administered on 01/06/17 02: 27; Admin Dose 1 EA; Start 12/30/16 at 02:00 Metoprolol Tartrate (Lopressor) 25 mg BID PO Last administered on 01/05/17 21: 16; Admin Dose 25 MG; Start 12/30/16 at 21:00 Aspirin (Halfprin) 81 mg DAILY PO Last administered on 01/07/17 08:24; Admin Dose 81 MG; Start 12/31/16 at 09:00 Apixaban (Eliquis) 2.5 mg BID PO Last administered on 01/07/17 08:23; Admin Dose 2.5 MG; Start 12/30/16 at 21:00 Amiodarone HCl (Cordarone) 200 mg DAILY PO Last administered on 01/07/17 08:23 ; Admin Dose 200 MG; Start 12/31/16 at 09:00 Collagenase (Santyl) 1 applic DAILY TOP Last administered on 01/07/17 08:24; Admin Dose 1 APPLIC; Start 01/04/17 at 09:00 KIMBERLY NOYOLA January 07, 2017 20:31
[2017-01-07 22:01] VITALS: PULSE 80
[2017-01-07] MEDS: INSULIN GLARGINE [LANtus] 3 ML PEN SC SCH (22:57)
[2017-01-08] VITALS (52 sets, daily range): BP systolic 76–160; BP diastolic 46–105; PULSE 75–127; RESP 16–30
[2017-01-08] MEDS ORDERED: EPINEPHrine 0.1 MG/ML SYG ONE
[2017-01-08] MEDS ORDERED: DEXTROSE 50% 50 ML SYRINGE ONE
[2017-01-08] MEDS ORDERED: CA CHLORIDE 10% 10 ML SYRINGE ONE
[2017-01-08] MEDS ORDERED: ATROPINE 1 MG/10 ML SYRINGE ONE
[2017-01-08] MEDS: ACCU-CHEK XX SCH (02:00)
[2017-01-08] MEDS ORDERED: PROPOFOL 100 ML ONE (02:48)
[2017-01-08 03:27] LABS: ADD SCAN DIFF NO
[2017-01-08 03:29] LABS: ABNORMAL IP MESSAGE 1; BASOPHILS % 0.4 % (0.0-2.0); EOSINOPHILS # 0.2 10^3/ul (0.0-0.5); EOSINOPHILS % 1.6 % (0.0-7.0); HEMATOCRIT 27.5 % (42.0-52.0); HEMOGLOBIN 8.6 g/dl (14.0-18.0); LYMPHOCYTES # 0.4 10^3/ul (0.8-2.9); LYMPHOCYTES % 3.9 % (15.0-51.0); MEAN CORPUSCULAR HEMOGLOBIN 30.9 pg (29.0-33.0); MEAN CORPUSCULAR HGB CONC 31.3 g/dl (32.0-37.0); MEAN CORPUSCULAR VOLUME 98.9 fl (82.0-101.0); MEAN PLATELET VOLUME 10.1 fl (7.4-10.4); MONOCYTE # 0.6 10^3/ul (0.3-0.9); MONOCYTES % 5.9 % (0.0-11.0); NEUTROPHIL # 8.6 10^3/ul (1.6-7.5); NEUTROPHILS % 86.5 % (39.0-77.0); PLATELET COUNT 204 10^3/UL (140-415); RED BLOOD COUNT 2.78 10^6/ul (4.70-6.10); RED CELL DISTRIBUTION WIDTH 13.7 % (11.5-14.5)
[2017-01-08 03:29] LABS: AADO2 Arterial 353.5 mmHg (7.0-24.0); Arterial Base Excess -5.7 mmol/L (-3.0-3); Arterial COHb 0.3 % (0.0-3.0); Arterial Fraction of Oxyhgb 98.9 % (93.0-99.0); Arterial HCO3 19.9 mmol/L (22.0-26.0); Arterial MetHb 0.3 % (0.0-1.5); Arterial Total Hemglobin 9.5 g/dl (12.0-18.0); MODE VENT - AC
--- NOTE | 2017-01-08 03:32 | RADRPT ---
PROCEDURE: XR Chest. CLINICAL INDICATION: New endotracheal intubation. TECHNIQUE: Single frontal view of the chest. COMPARISON: Chest dated 01/07/2017. FINDINGS: New nasogastric tube in place with tip and side port in the mid stomach. Endotracheal intubation is seen with tip about 4 cm above the dorinda. Double-lumen right central venous dialysis catheter see n with tip in the superior vena cava right atrial junction. There is a right pleural effusion that is mild to moderate, with extensive bilateral patchy air spac e disease, right greater than left. Air space disease in right pleural effusion appear increased ove r interval. A new small left pleural effusion is likely present. Cardiomegaly. No signs of pneumothorax are seen. Demineralization limits evaluation of fine osseous detail. Remote fracture deformity in the mid to distal right clavicle. Otherwise, the osseous stru ctures and soft tissues are unremarkable. IMPRESSION: 1. New nasogastric tube in place, with tip and side port in the mid stomach. 2. New endotracheal intubation, with tip about 4 cm above the dorinda. 3. Mild to moderate right pleural effusion, with extensive bilateral dense air space disease, right greater than left. 4. Airspace disease and right pleural effusion are increased over interval. 5. A new small left pleural effusion is likely present. Physician Wilian Date Time Electronically viewed and signed by Physician Wilian on 01/08/2017 03:31 RS/
[2017-01-08 03:44] LABS: INR 1.3; PROTIME 16.3 Sec (12.2-14.2); PT RATIO 1.3
[2017-01-08 03:45] LABS: PARTIAL THROMBOPLASTIN TIME 34.1 Sec (25.0-35.0)
[2017-01-08 03:46] LABS: POTASSIUM 4.7 mmol/L (3.5-5.1)
[2017-01-08 03:48] LABS: CREATININE 4.15 mg/dl (0.61-1.24); MAGNESIUM 1.9 mg/dl (1.7-2.5); PHOSPHORUS 6.5 mg/dl (2.5-4.9)
[2017-01-08 03:49] LABS: CALCIUM 9.4 mg/dl (8.4-10.2)
[2017-01-08] MEDS: PROPOFOL 100 ML IV SCH ×2 (04:00→16:00)
[2017-01-08] MEDS: SOD CHLORIDE 0.9% 1,000 ML IV SCH ×3 (04:00→14:03)
[2017-01-08] MEDS: PANTOPRAZOLE (EC) 40 MG TAB PO SCH (06:57)
[2017-01-08] MEDS ORDERED: SOD CHLORIDE 0.9% 1,000 ML IV ONE (07:00)
[2017-01-08] MEDS: INSULIN ASPART [NOVOLOG] 3 ML PEN SC SCH ×7 (07:35→20:48)
[2017-01-08] MEDS: ALBUTEROL 18 GM INHALER INH SCH ×3 (08:00→19:23)
[2017-01-08] MEDS: ASPIRIN (EC) 81 MG TAB PO SCH (08:35)
[2017-01-08] MEDS: PIPER-TAZO 2.25 GM (PMX) 50 ML IVPB SCH (08:35)
[2017-01-08] MEDS: AMIODARONE 200 MG TAB PO SCH (08:35)
[2017-01-08] MEDS: METOPROLOL 25 MG TAB PO SCH ×2 (08:36→18:18)
[2017-01-08] MEDS: APIXABAN 5 MG TABLET PO SCH ×2 (08:36→20:45)
[2017-01-08] MEDS: COLLAGENASE 30 GM TUBE TOP SCH (09:32)
--- NOTE | 2017-01-08 11:23 | PN ---
Date/Time of Note Date/Time of Note DATE: 01/08/17 TIME: 11:21 Assessment/Plan VTE Prophylaxis VTE Prophylaxis Intervention: other Lines/Catheters IV Catheter Type (from [facility]): PERMACATH Urinary Cath still in place: No Assessment/Plan Chief Complaint/Hosp Course - s/p code blue, is on ventilator, monitor closely - Acute respiratory failure secondary to pulmonary edema, resolved. Dr. Alvarez is following from pulmonology standpoint. - Bilateral pleural effusion, this post right sided thoracentesis with removal of 900 cc of fluid. - Acute renal failure, Dr. Remy is following in nephrology consultation. Continue hemodialysis per nephrology. Pending permacath placement by vascular surgery. - Acute to subacute right occipital lobe ischemic infarct per CT, Dr Morris is following in neurology consultation. - Paroxysmal atrial fibrillation and positive troponin. Dr. Cobian is following and cardiology consultation. Status post Lexiscan on 12/24. - Fungemia, om Caspofungin. Dr. Pascual is following in infection disease consultation. - Diabetic foot ulcer of the left foot, Dr Lin is following in podiatry consultation. - Cellulitis of left foot, 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 and left fourth proximal phalanx per bone scan. Continue antibiotics per ID. - Aortic stenosis - Diastolic dysfunction congestive heart failure with preserved ejection fraction of 60%. - DM, Hgb A1c is 8.7, continue Lantus and pre-meal NovoLog and NovoLog per sliding scale. -Traumatic hematuria,, resolved. Dr. Grey urology consult is appreciated. Problems: Subjective 24 Hr Interval Summary Free Text/Dictation Patient is sedated and intubated. Patient had code blue yesterday and was revived. Exam/Review of Systems Vital Signs Vitals Vital Signs Date Time Temp Pulse Resp B/P Pulse Ox O2 Delivery O2 Flow Rate FiO2 01/08/17 10:00 95 26 121/69 97 Mechanical Ventilator 01/08/17 08:00 40 01/08/17 08:00 98.7 01/07/17 14:56 2.0 Intake and Output 01/07/17 01/07/17 01/08/17 15:00 23:00 07:00 Intake Total 50 ml 1000 ml 1412.5 ml Output Total 100 ml Balance 50 ml 1000 ml 1312.5 ml Exam Constitutional: well developed Head: atraumatic, normocephalic Neck: supple Respiratory: diminished breath sounds Cardiovascular: regular rate and rhythm Gastrointestinal: non-tender, soft Extremities: normal pulses Results Result Diagram: 01/08/17 0325 01/08/17 0325 Results 24 hrs Laboratory Tests Test 01/07/17 12:18 01/07/17 18:03 01/07/17 22:40 01/08/17 02:04 Bedside Glucose 186 209 173 205 Test 01/08/17 02:38 01/08/17 03:25 01/08/17 04:15 01/08/17 05:02 Blood Gas Specimen Source Blood arterial Arterial Blood Date Drawn 01/08/2017 3:18:18 AM Arterial Blood pH (Temp corrected) 7.323 L Arterial Blood pCO2 (Temp correct) 39.2 Arterial Blood pO2 (Temp corrected) 320.3 H Arterial Blood HCO3 19.9 L Arterial Blood Base Excess -5.7 L Arterial Blood Oxygen Saturation 99.5 H Derek Test N/A Arterial Blood Gas Puncture Site Right Brachial Arterial Blood Carboxyhemoglobin 0.3 Arterial Blood Methemoglobin 0.3 Blood Gas A-a O2 Differential 353.5 H Oxyhemoglobin Percent 98.9 Total Hemoglobin 9.5 L Blood Gas Temperature 37.0 Blood Gas Respiration Rate 16.0 Blood Gas Actual Respiration Rate 25 Blood Gas Modality VENT - AC FiO2 100.0 Blood Gas Tidal Volume 500.0 Blood Gas Low PEEP Setting 5.0 Blood Gas Notified Whom Kristie MYA Blood Gas Notified Time 01/08/2017 3:29:19 AM White Blood Count 10.0 # Red Blood Count 2.78 L Hemoglobin 8.6 L Hematocrit 27.5 L Mean Corpuscular Volume 98.9 Mean Corpuscular Hemoglobin 30.9 Mean Corpuscular Hemoglobin Concent 31.3 L Red Cell Distribution Width 13.7 Platelet Count 204 Mean Platelet Volume 10.1 Neutrophils % 86.5 H Lymphocytes % 3.9 L Monocytes % 5.9 Eosinophils % 1.6 Basophils % 0.4 Nucleated Red Blood Cells % 0.0 Neutrophils # 8.6 H Lymphocytes # 0.4 L Monocytes # 0.6 Eosinophils # 0.2 Basophils # 0.0 Nucleated Red Blood Cells # 0.0 Prothrombin Time 16.3 H Prothrombin Time Ratio 1.3 INR International Normalized Ratio 1.30 Activated Partial Thromboplast Time 34.1 Sodium Level 140 Potassium Level 4.7 Chloride Level 99 Carbon Dioxide Level 24 Anion Gap 22 H Blood Urea Nitrogen 29 H Creatinine 4.15 H Glucose Level 348 #H Calcium Level 9.4 Phosphorus Level 6.5 H Magnesium Level 1.9 Lactic Acid Level 3.5 H Lab Scanned Report BLOOD TRANSFUSION Test 01/08/17 08:15 Bedside Glucose 275 H Medications Medications Current Medications Ondansetron HCl (Zofran Inj) 4 mg Q6H PRN IV NAUSEA AND/OR VOMITING Last administered on 12/13/16 01:13; Admin Dose 4 MG; Start 12/02/16 at 22:30 Miscellaneous Information 1 ea NOTE XX ; Start 12/02/16 at 23:00 Glucose (Glutose) 15 gm Q15M PRN PO DECREASED GLUCOSE; Start 12/02/16 at 23:00 Glucose (Glutose) 22.5 gm Q15M PRN PO DECREASED GLUCOSE; Start 12/02/16 at 23: 00 Dextrose (D50w Syringe) 25 ml Q15M PRN IV DECREASED GLUCOSE Last administered on 12/10/16 05:52; Admin Dose 25 ML; Start 12/02/16 at 23:00 Dextrose (D50w Syringe) 50 ml Q15M PRN IV DECREASED GLUCOSE; Start 12/02/16 at 23:00 Glucagon (Glucagen) 1 mg Q15M PRN IM DECREASED GLUCOSE; Start 12/02/16 at 23:00 Glucose (Glutose) 15 gm Q15M PRN BUCCAL DECREASED GLUCOSE; Start 12/02/16 at 23 :00 Gabapentin (Neurontin) 800 mg TID PO Last administered on 12/08/16 20:33; Admin Dose 800 MG; Start 12/03/16 at 09:00; Status Future Hold Meclizine HCl (Antivert) 25 mg TID PRN PO dizziness Last administered on 09:37; Admin Dose 25 MG; Start 12/02/16 at 23:00 Terazosin HCl (Hytrin) 5 mg HS PO Last administered on 12/07/16 20:28; Admin Dose 5 MG; Start 12/03/16 at 21:00; Status Future Hold Acetaminophen/ Hydrocodone Bitart ([place] (5/325)) 1 tab Q6H PRN PO PAIN LEVEL 4 -7 Last administered on 12/23/16 22:14; Admin Dose 1 TAB; Start 12/02/16 at 23: 30 Acetaminophen (Tylenol Tab) 650 mg Q6H PRN PO PAIN AND OR ELEVATED TEMP Last administered on 01/07/17 01:27; Admin Dose 650 MG; Start 12/02/16 at 23:30 Docusate Sodium (Colace) 100 mg BID PO Last administered on 12/08/16 20:32; Admin Dose 100 MG; Start 12/03/16 at 09:00; Status Future Hold Zolpidem Tartrate (Ambien) 5 mg HS PRN PO INSOMNIA Last administered on 20:53; Admin Dose 5 MG; Start 12/02/16 at 23:30 Benazepril HCl (Lotensin) 10 mg DAILY PO Last administered on 12/07/16 08:26; Admin Dose 10 MG; Start 12/04/16 at 09:00; Status Future Hold Morphine Sulfate (morphine) 2 mg Q2H PRN IV PAIN Last administered on 12/20/16 03:22; Admin Dose 2 MG; Start 12/09/16 at 09:30 Acetaminophen 650 mg 650 mg Q6H PRN [place] ELEVATED TEMPERATURE Last administered on 12/09/16 17:53; Admin Dose 650 MG; Start 12/09/16 at 17:00 Piperacillin Sod/ Tazobactam Sod (Zosyn 2.25gm/ 50ml (Pmx)) 50 ml @ 100 mls/hr Q12 IVPB Last administered on 01/08/17 08:35; Admin Dose 100 MLS/HR; Start at 21:00 Metoprolol Tartrate (Lopressor) 5 mg Q4H PRN IV HR>100 Last administered on 22:23; Admin Dose 5 MG; Start 12/09/16 at 17:48 Hydralazine HCl (Apresoline) 10 mg Q6H PRN IV SBP>150mm hg Last administered on 12/19/16 08:50; Admin Dose 10 MG; Start 12/11/16 at 10:30 Morphine Sulfate (morphine) 2 mg Q2H PRN IV PAIN LEVEL 4-7; Start 12/13/16 at 10 :00 Pantoprazole (Protonix Tab) 40 mg DAILY@06 PO Last administered on 01/08/17 06 :57; Admin Dose 40 MG; Start 12/23/16 at 06:00 Insulin Glargine (Lantus) 22 unit DAILY@20 SC Last administered on 01/07/17 22 :57; Admin Dose 22 UNIT; Start 12/25/16 at 20:00 Diagnostic Test (Pha) (Accu-Chek) 1 ea 02 XX Last administered on 01/06/17 02: 27; Admin Dose 1 EA; Start 12/30/16 at 02:00 Metoprolol Tartrate (Lopressor) 25 mg BID PO Last administered on 01/08/17 08: 36; Admin Dose 25 MG; Start 12/30/16 at 21:00 Aspirin (Halfprin) 81 mg DAILY PO Last administered on 01/08/17 08:35; Admin Dose 81 MG; Start 12/31/16 at 09:00 Apixaban (Eliquis) 2.5 mg BID PO Last administered on 01/08/17 08:36; Admin Dose 2.5 MG; Start 12/30/16 at 21:00 Amiodarone HCl (Cordarone) 200 mg DAILY PO Last administered on 01/08/17 08:35 ; Admin Dose 200 MG; Start 12/31/16 at 09:00 Collagenase 1 applic 1 applic DAILY TOP Last administered on 01/08/17 09:32; Admin Dose 1 APPLIC; Start 01/04/17 at 09:00 Propofol 100 ml @ 2.544 mls/ hr Q12H IV Last administered on 01/08/17 04:00; Admin Dose 2.544 MLS/HR; Start 01/08/17 at 04:00 Sodium Chloride (NS) 1,000 ml @ 100 mls/hr Q10H IV Last administered on 04:00; Admin Dose 100 MLS/HR; Start 01/08/17 at 04:00 ELTON MARMOLEJO January 08, 2017 11:23
--- NOTE | 2017-01-08 11:31 | CONS ---
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 Blood cultures from HD catheter on 12/13/2016 are negative to date. 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 superficial swab grew inna only - right pleural effusion s/p thoracentesis with .9L removed on 12/16/2016; (Note: there is no pleural fluid cx since orders were placed after Right thoracentesis , and Left thoracentesis was not performed on 12/17/16 d/t insufficient fluid) - funguria - ARANZA, on HD from 12/09/2016 - A fib; now in SR - troponin+ - small nonreversible perfusion abnormality in the inferoapical and inferior carver; EF 36% per Lexiscan 12/24/2016 - severe , EF 40-45% per TTE 12/17/16 - DM - Hgb A1c 8.7% - HTN associated with DM - Episodes of hypercapnic respiratory failure, responding well to BiPAP recommendations: - continue renally dosed pip/tazo (12/03/2016) empirically for diabetic foot infection while in hospital (s/p linezolid); May D/c home on po Levaquin/Flagyl to complete course - ultimately, Pt needs 6 weeks of antibiotics to treat 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 and left fourth proximal phalanx: 12/03/2016 through 01/15/2017. Problems: Consultation Date/Type/Reason Admit Date/Time Dec 02, 2016 at 21:01 Type of Consultation: id Referring Provider: VIET PARKER MD Exam/Review of Systems Vital Signs Vitals Vital Signs Date Time Temp Pulse Resp B/P Pulse Ox O2 Delivery O2 Flow Rate FiO2 01/08/17 10:00 95 26 121/69 97 Mechanical Ventilator 01/08/17 08:00 40 01/08/17 08:00 98.7 01/07/17 14:56 2.0 Intake and Output 01/07/17 01/07/17 01/08/17 15:00 23:00 07:00 Intake Total 50 ml 1000 ml 1412.5 ml Output Total 100 ml Balance 50 ml 1000 ml 1312.5 ml Exam looks much better today. smiling. sitting in chair Constitutional: alert, oriented, well developed Psych: nl mood/affect, no complaints Head: atraumatic, normocephalic Eyes: EOMI, PERRL, nl conjunctiva, nl lids, nl sclera Respiratory: clear to auscultation, normal air movement Cardiovascular: nl pulses, regular rate and rhythm Results Result Diagram: 01/08/17 0325 01/08/17 0325 Results 24 hrs Laboratory Tests Test 01/07/17 12:18 01/07/17 18:03 01/07/17 22:40 01/08/17 02:04 Bedside Glucose 186 209 173 205 Test 01/08/17 02:38 01/08/17 03:25 01/08/17 04:15 01/08/17 05:02 Blood Gas Specimen Source Blood arterial Arterial Blood Date Drawn 01/08/2017 3:18:18 AM Arterial Blood pH (Temp corrected) 7.323 L Arterial Blood pCO2 (Temp correct) 39.2 Arterial Blood pO2 (Temp corrected) 320.3 H Arterial Blood HCO3 19.9 L Arterial Blood Base Excess -5.7 L Arterial Blood Oxygen Saturation 99.5 H Derek Test N/A Arterial Blood Gas Puncture Site Right Brachial Arterial Blood Carboxyhemoglobin 0.3 Arterial Blood Methemoglobin 0.3 Blood Gas A-a O2 Differential 353.5 H Oxyhemoglobin Percent 98.9 Total Hemoglobin 9.5 L Blood Gas Temperature 37.0 Blood Gas Respiration Rate 16.0 Blood Gas Actual Respiration Rate 25 Blood Gas Modality VENT - AC FiO2 100.0 Blood Gas Tidal Volume 500.0 Blood Gas Low PEEP Setting 5.0 Blood Gas Notified Whom Kristie ROQUE Blood Gas Notified Time 01/08/2017 3:29:19 AM White Blood Count 10.0 # Red Blood Count 2.78 L Hemoglobin 8.6 L Hematocrit 27.5 L Mean Corpuscular Volume 98.9 Mean Corpuscular Hemoglobin 30.9 Mean Corpuscular Hemoglobin Concent 31.3 L Red Cell Distribution Width 13.7 Platelet Count 204 Mean Platelet Volume 10.1 Neutrophils % 86.5 H Lymphocytes % 3.9 L Monocytes % 5.9 Eosinophils % 1.6 Basophils % 0.4 Nucleated Red Blood Cells % 0.0 Neutrophils # 8.6 H Lymphocytes # 0.4 L Monocytes # 0.6 Eosinophils # 0.2 Basophils # 0.0 Nucleated Red Blood Cells # 0.0 Prothrombin Time 16.3 H Prothrombin Time Ratio 1.3 INR International Normalized Ratio 1.30 Activated Partial Thromboplast Time 34.1 Sodium Level 140 Potassium Level 4.7 Chloride Level 99 Carbon Dioxide Level 24 Anion Gap 22 H Blood Urea Nitrogen 29 H Creatinine 4.15 H Glucose Level 348 #H Calcium Level 9.4 Phosphorus Level 6.5 H Magnesium Level 1.9 Lactic Acid Level 3.5 H Lab Scanned Report BLOOD TRANSFUSION Test 01/08/17 08:15 01/08/17 11:22 Bedside Glucose 275 H 247 H Medications Medications Current Medications Ondansetron HCl (Zofran Inj) 4 mg Q6H PRN IV NAUSEA AND/OR VOMITING Last administered on 12/13/16 01:13; Admin Dose 4 MG; Start 12/02/16 at 22:30 Miscellaneous Information 1 ea NOTE XX ; Start 12/02/16 at 23:00 Glucose (Glutose) 15 gm Q15M PRN PO DECREASED GLUCOSE; Start 12/02/16 at 23:00 Glucose (Glutose) 22.5 gm Q15M PRN PO DECREASED GLUCOSE; Start 12/02/16 at 23: 00 Dextrose (D50w Syringe) 25 ml Q15M PRN IV DECREASED GLUCOSE Last administered on 12/10/16 05:52; Admin Dose 25 ML; Start 12/02/16 at 23:00 Dextrose (D50w Syringe) 50 ml Q15M PRN IV DECREASED GLUCOSE; Start 12/02/16 at 23:00 Glucagon (Glucagen) 1 mg Q15M PRN IM DECREASED GLUCOSE; Start 12/02/16 at 23:00 Glucose (Glutose) 15 gm Q15M PRN BUCCAL DECREASED GLUCOSE; Start 12/02/16 at 23 :00 Gabapentin (Neurontin) 800 mg TID PO Last administered on 12/08/16 20:33; Admin Dose 800 MG; Start 12/03/16 at 09:00; Status Future Hold Meclizine HCl (Antivert) 25 mg TID PRN PO dizziness Last administered on 09:37; Admin Dose 25 MG; Start 12/02/16 at 23:00 Terazosin HCl (Hytrin) 5 mg HS PO Last administered on 12/07/16 20:28; Admin Dose 5 MG; Start 12/03/16 at 21:00; Status Future Hold Acetaminophen/ Hydrocodone Bitart ([place] (5/325)) 1 tab Q6H PRN PO PAIN LEVEL 4 -7 Last administered on 12/23/16 22:14; Admin Dose 1 TAB; Start 12/02/16 at 23: 30 Acetaminophen (Tylenol Tab) 650 mg Q6H PRN PO PAIN AND OR ELEVATED TEMP Last administered on 01/07/17 01:27; Admin Dose 650 MG; Start 12/02/16 at 23:30 Docusate Sodium (Colace) 100 mg BID PO Last administered on 12/08/16 20:32; Admin Dose 100 MG; Start 12/03/16 at 09:00; Status Future Hold Zolpidem Tartrate (Ambien) 5 mg HS PRN PO INSOMNIA Last administered on 20:53; Admin Dose 5 MG; Start 12/02/16 at 23:30 Benazepril HCl (Lotensin) 10 mg DAILY PO Last administered on 12/07/16 08:26; Admin Dose 10 MG; Start 12/04/16 at 09:00; Status Future Hold Morphine Sulfate (morphine) 2 mg Q2H PRN IV PAIN Last administered on 12/20/16 03:22; Admin Dose 2 MG; Start 12/09/16 at 09:30 Acetaminophen 650 mg 650 mg Q6H PRN [place] ELEVATED TEMPERATURE Last administered on 12/09/16 17:53; Admin Dose 650 MG; Start 12/09/16 at 17:00 Piperacillin Sod/ Tazobactam Sod (Zosyn 2.25gm/ 50ml (Pmx)) 50 ml @ 100 mls/hr Q12 IVPB Last administered on 01/08/17 08:35; Admin Dose 100 MLS/HR; Start at 21:00 Metoprolol Tartrate (Lopressor) 5 mg Q4H PRN IV HR>100 Last administered on 22:23; Admin Dose 5 MG; Start 12/09/16 at 17:48 Hydralazine HCl (Apresoline) 10 mg Q6H PRN IV SBP>150mm hg Last administered on 12/19/16 08:50; Admin Dose 10 MG; Start 12/11/16 at 10:30 Morphine Sulfate (morphine) 2 mg Q2H PRN IV PAIN LEVEL 4-7; Start 12/13/16 at 10 :00 Pantoprazole (Protonix Tab) 40 mg DAILY@06 PO Last administered on 01/08/17 06 :57; Admin Dose 40 MG; Start 12/23/16 at 06:00 Insulin Glargine (Lantus) 22 unit DAILY@20 SC Last administered on 01/07/17 22 :57; Admin Dose 22 UNIT; Start 12/25/16 at 20:00 Diagnostic Test (Pha) (Accu-Chek) 1 ea 02 XX Last administered on 01/06/17 02: 27; Admin Dose 1 EA; Start 12/30/16 at 02:00 Metoprolol Tartrate (Lopressor) 25 mg BID PO Last administered on 01/08/17 08: 36; Admin Dose 25 MG; Start 12/30/16 at 21:00 Aspirin (Halfprin) 81 mg DAILY PO Last administered on 01/08/17 08:35; Admin Dose 81 MG; Start 12/31/16 at 09:00 Apixaban (Eliquis) 2.5 mg BID PO Last administered on 01/08/17 08:36; Admin Dose 2.5 MG; Start 12/30/16 at 21:00 Amiodarone HCl (Cordarone) 200 mg DAILY PO Last administered on 01/08/17 08:35 ; Admin Dose 200 MG; Start 12/31/16 at 09:00 Collagenase 1 applic 1 applic DAILY TOP Last administered on 01/08/17 09:32; Admin Dose 1 APPLIC; Start 01/04/17 at 09:00 Propofol 100 ml @ 2.544 mls/ hr Q12H IV Last administered on 01/08/17 04:00; Admin Dose 2.544 MLS/HR; Start 01/08/17 at 04:00 Sodium Chloride (NS) 1,000 ml @ 100 mls/hr Q10H IV Last administered on 04:00; Admin Dose 100 MLS/HR; Start 01/08/17 at 04:00 NIKHIL RAM MD January 08, 2017 11:31
--- NOTE | 2017-01-08 12:14 | CONS ---
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 Blood cultures from HD catheter on 12/13/2016 are negative to date. 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 superficial swab grew inna only - right pleural effusion s/p thoracentesis with .9L removed on 12/16/2016; (Note: there is no pleural fluid cx since orders were placed after Right thoracentesis , and Left thoracentesis was not performed on 12/17/16 d/t insufficient fluid) - funguria - ARANZA, on HD from 12/09/2016 - A fib; now in SR - troponin+ - small nonreversible perfusion abnormality in the inferoapical and inferior carver; EF 36% per Lexiscan 12/24/2016 - severe , EF 40-45% per TTE 12/17/16 - DM - Hgb A1c 8.7% - HTN associated with DM - episodes of hypercapnic respiratory failure, responding well to BiPAP - lactic acidosis 01/08/2017 - acute encephalopathy with likely anoxic brain injury Recommendations: - send solorzano cultures - will broaden abx: change pip/tazo to renally dosed meropenem and add linezolid (pt is allergic to vancomycin). - ultimately, Pt needs 6 weeks of antibiotics to treat 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 and left fourth proximal phalanx: 12/03/2016 through 01/15/2017 (s/p pip/tazo 12/03/16-01/08/17) - serial CXR, lactic acid, and re-check procalcitonin - consider CT brain, EEG, and Neuro eval management d/w Pt's and son, Dr. Oliveira, RN Faby and Dr. Wilson Critical care time: 60 min including therapeutic time with family Problems: Consultation Date/Type/Reason Admit Date/Time Dec 02, 2016 at 21:01 Initial Consult Date 12/03/16 Type of Consultation: Infectious Disease Referring Provider: VIET PARKER MD 24 HR Interval Summary Free Text/Dictation Pt had CPA overnight, intubated and transferred to ICU. Sedation off since 10am and pt remains unresponsive and currently getting HD. Family with multiple questions. Exam/Review of Systems Vital Signs Vitals Vital Signs Date Time Temp Pulse Resp B/P Pulse Ox O2 Delivery O2 Flow Rate FiO2 01/08/17 11:50 75 01/08/17 11:00 26 138/82 91 Mechanical Ventilator 01/08/17 08:00 40 01/08/17 08:00 98.7 01/07/17 14:56 2.0 Intake and Output 01/07/17 01/07/17 01/08/17 15:00 23:00 07:00 Intake Total 50 ml 1000 ml 1412.5 ml Output Total 100 ml Balance 50 ml 1000 ml 1312.5 ml Exam Constitutional: frail, non-verbal, other (now orally intubated, in ICU, getting HD), well developed Head: atraumatic, normocephalic Eyes: PERRL (sluggish), nl sclera Neck: other (Unable to assess; R IJ permacath with no e/o infection) Respiratory: crackles/rales Cardiovascular: regular rate and rhythm, systolic murmur Gastrointestinal: other (NGT clamped), soft Neurological: unresponsive Skin: nl turgor, other (See nurse note and photos in chart for details; stage 2 sacrococcyx ulcer; Left great toe diabetic dry ulcer with eschar; Left foot dressing c/d/i) Results Result Diagram: 01/08/17 0325 01/08/17 0325 Results 24 hrs Laboratory Tests Test 01/07/17 12:18 01/07/17 18:03 01/07/17 22:40 01/08/17 02:04 Bedside Glucose 186 209 173 205 Test 01/08/17 02:38 01/08/17 03:25 01/08/17 04:15 01/08/17 05:02 Blood Gas Specimen Source Blood arterial Arterial Blood Date Drawn 01/08/2017 3:18:18 AM Arterial Blood pH (Temp corrected) 7.323 L Arterial Blood pCO2 (Temp correct) 39.2 Arterial Blood pO2 (Temp corrected) 320.3 H Arterial Blood HCO3 19.9 L Arterial Blood Base Excess -5.7 L Arterial Blood Oxygen Saturation 99.5 H Derek Test N/A Arterial Blood Gas Puncture Site Right Brachial Arterial Blood Carboxyhemoglobin 0.3 Arterial Blood Methemoglobin 0.3 Blood Gas A-a O2 Differential 353.5 H Oxyhemoglobin Percent 98.9 Total Hemoglobin 9.5 L Blood Gas Temperature 37.0 Blood Gas Respiration Rate 16.0 Blood Gas Actual Respiration Rate 25 Blood Gas Modality VENT - AC FiO2 100.0 Blood Gas Tidal Volume 500.0 Blood Gas Low PEEP Setting 5.0 Blood Gas Notified Thang ROQUE Blood Gas Notified Time 01/08/2017 3:29:19 AM White Blood Count 10.0 # Red Blood Count 2.78 L Hemoglobin 8.6 L Hematocrit 27.5 L Mean Corpuscular Volume 98.9 Mean Corpuscular Hemoglobin 30.9 Mean Corpuscular Hemoglobin Concent 31.3 L Red Cell Distribution Width 13.7 Platelet Count 204 Mean Platelet Volume 10.1 Neutrophils % 86.5 H Lymphocytes % 3.9 L Monocytes % 5.9 Eosinophils % 1.6 Basophils % 0.4 Nucleated Red Blood Cells % 0.0 Neutrophils # 8.6 H Lymphocytes # 0.4 L Monocytes # 0.6 Eosinophils # 0.2 Basophils # 0.0 Nucleated Red Blood Cells # 0.0 Prothrombin Time 16.3 H Prothrombin Time Ratio 1.3 INR International Normalized Ratio 1.30 Activated Partial Thromboplast Time 34.1 Sodium Level 140 Potassium Level 4.7 Chloride Level 99 Carbon Dioxide Level 24 Anion Gap 22 H Blood Urea Nitrogen 29 H Creatinine 4.15 H Glucose Level 348 #H Calcium Level 9.4 Phosphorus Level 6.5 H Magnesium Level 1.9 Lactic Acid Level 3.5 H Lab Scanned Report BLOOD TRANSFUSION Test 01/08/17 08:15 01/08/17 11:22 Bedside Glucose 275 H 247 H Medications Medications Current Medications Ondansetron HCl (Zofran Inj) 4 mg Q6H PRN IV NAUSEA AND/OR VOMITING Last administered on 12/13/16 01:13; Admin Dose 4 MG; Start 12/02/16 at 22:30 Miscellaneous Information 1 ea NOTE XX ; Start 12/02/16 at 23:00 Glucose (Glutose) 15 gm Q15M PRN PO DECREASED GLUCOSE; Start 12/02/16 at 23:00 Glucose (Glutose) 22.5 gm Q15M PRN PO DECREASED GLUCOSE; Start 12/02/16 at 23: 00 Dextrose (D50w Syringe) 25 ml Q15M PRN IV DECREASED GLUCOSE Last administered on 12/10/16 05:52; Admin Dose 25 ML; Start 12/02/16 at 23:00 Dextrose (D50w Syringe) 50 ml Q15M PRN IV DECREASED GLUCOSE; Start 12/02/16 at 23:00 Glucagon (Glucagen) 1 mg Q15M PRN IM DECREASED GLUCOSE; Start 12/02/16 at 23:00 Glucose (Glutose) 15 gm Q15M PRN BUCCAL DECREASED GLUCOSE; Start 12/02/16 at 23 :00 Gabapentin (Neurontin) 800 mg TID PO Last administered on 12/08/16 20:33; Admin Dose 800 MG; Start 12/03/16 at 09:00; Status Future Hold Meclizine HCl (Antivert) 25 mg TID PRN PO dizziness Last administered on 09:37; Admin Dose 25 MG; Start 12/02/16 at 23:00 Terazosin HCl (Hytrin) 5 mg HS PO Last administered on 12/07/16 20:28; Admin Dose 5 MG; Start 12/03/16 at 21:00; Status Future Hold Acetaminophen/ Hydrocodone Bitart ([place] (5/325)) 1 tab Q6H PRN PO PAIN LEVEL 4 -7 Last administered on 12/23/16 22:14; Admin Dose 1 TAB; Start 12/02/16 at 23: 30 Acetaminophen (Tylenol Tab) 650 mg Q6H PRN PO PAIN AND OR ELEVATED TEMP Last administered on 01/07/17 01:27; Admin Dose 650 MG; Start 12/02/16 at 23:30 Docusate Sodium (Colace) 100 mg BID PO Last administered on 12/08/16 20:32; Admin Dose 100 MG; Start 12/03/16 at 09:00; Status Future Hold Zolpidem Tartrate (Ambien) 5 mg HS PRN PO INSOMNIA Last administered on 20:53; Admin Dose 5 MG; Start 12/02/16 at 23:30 Benazepril HCl (Lotensin) 10 mg DAILY PO Last administered on 12/07/16 08:26; Admin Dose 10 MG; Start 12/04/16 at 09:00; Status Future Hold Morphine Sulfate (morphine) 2 mg Q2H PRN IV PAIN Last administered on 12/20/16 03:22; Admin Dose 2 MG; Start 12/09/16 at 09:30 Acetaminophen 650 mg 650 mg Q6H PRN [place] ELEVATED TEMPERATURE Last administered on 12/09/16 17:53; Admin Dose 650 MG; Start 12/09/16 at 17:00 Piperacillin Sod/ Tazobactam Sod (Zosyn 2.25gm/ 50ml (Pmx)) 50 ml @ 100 mls/hr Q12 IVPB Last administered on 01/08/17 08:35; Admin Dose 100 MLS/HR; Start at 21:00 Metoprolol Tartrate (Lopressor) 5 mg Q4H PRN IV HR>100 Last administered on 22:23; Admin Dose 5 MG; Start 12/09/16 at 17:48 Hydralazine HCl (Apresoline) 10 mg Q6H PRN IV SBP>150mm hg Last administered on 12/19/16 08:50; Admin Dose 10 MG; Start 12/11/16 at 10:30 Morphine Sulfate (morphine) 2 mg Q2H PRN IV PAIN LEVEL 4-7; Start 12/13/16 at 10 :00 Pantoprazole (Protonix Tab) 40 mg DAILY@06 PO Last administered on 01/08/17 06 :57; Admin Dose 40 MG; Start 12/23/16 at 06:00 Insulin Glargine (Lantus) 22 unit DAILY@20 SC Last administered on 01/07/17 22 :57; Admin Dose 22 UNIT; Start 12/25/16 at 20:00 Diagnostic Test (Pha) (Accu-Chek) 1 ea 02 XX Last administered on 01/06/17 02: 27; Admin Dose 1 EA; Start 12/30/16 at 02:00 Metoprolol Tartrate (Lopressor) 25 mg BID PO Last administered on 01/08/17 08: 36; Admin Dose 25 MG; Start 12/30/16 at 21:00 Aspirin (Halfprin) 81 mg DAILY PO Last administered on 01/08/17 08:35; Admin Dose 81 MG; Start 12/31/16 at 09:00 Apixaban (Eliquis) 2.5 mg BID PO Last administered on 01/08/17 08:36; Admin Dose 2.5 MG; Start 12/30/16 at 21:00 Amiodarone HCl (Cordarone) 200 mg DAILY PO Last administered on 01/08/17 08:35 ; Admin Dose 200 MG; Start 12/31/16 at 09:00 Collagenase 1 applic 1 applic DAILY TOP Last administered on 01/08/17 09:32; Admin Dose 1 APPLIC; Start 01/04/17 at 09:00 Propofol 100 ml @ 2.544 mls/ hr Q12H IV Last administered on 01/08/17 04:00; Admin Dose 2.544 MLS/HR; Start 01/08/17 at 04:00 Sodium Chloride (NS) 1,000 ml @ 100 mls/hr Q10H IV Last administered on 04:00; Admin Dose 100 MLS/HR; Start 01/08/17 at 04:00 Procedures Procedures CXR 01/08/2017: 1. New nasogastric tube in place, with tip and side port in the mid stomach. 2. New endotracheal intubation, with tip about 4 cm above the dorinda. 3. Mild to moderate right pleural effusion, with extensive bilateral dense air space disease, right greater than left. 4. Airspace disease and right pleural effusion are increased over interval. 5. A new small left pleural effusion is likely present. YUMIKO ALATORRE NP January 08, 2017 12:13
--- NOTE | 2017-01-08 12:33 | CONS ---
Date/Time of Note Date/Time of Note DATE: 01/08/17 TIME: 12:25 Consult Date/Type/Reason Admit Date/Time Dec 02, 2016 at 21:01 Initial Consult Date 12/08/16 Type of Consultation: Pulm/CCM Ordering Provider: VIET PARKER MD Subjective s/p cardiopulmonary arrest overnight. Was asked to see this patient again after the event. No on mechanical vent and non-responsive Objective Vital Signs Date Time Temp Pulse Resp B/P Pulse Ox O2 Delivery O2 Flow Rate FiO2 01/08/17 11:50 75 01/08/17 11:00 26 138/82 91 Mechanical Ventilator 01/08/17 08:00 40 01/08/17 08:00 98.7 01/07/17 14:56 2.0 Intake and Output 01/07/17 01/07/17 01/08/17 15:00 23:00 07:00 Intake Total 50 ml 1000 ml 1412.5 ml Output Total 100 ml Balance 50 ml 1000 ml 1312.5 ml Exam HEENT: Neck supple; ++ JVD; no LAD; ET tube in place CVS: Irreg irreg, S1 and S2 CHEST: Bilateral rales ABD: Soft, NT, + BS EXT: No c/c/ + edema Results/Medications Result Diagram: 01/08/17 0325 01/08/17 0325 Results 24 hrs Laboratory Tests Test 01/07/17 18:03 01/07/17 22:40 01/08/17 02:04 01/08/17 02:38 Bedside Glucose 209 173 205 Blood Gas Specimen Source Blood arterial Arterial Blood Date Drawn 01/08/2017 3:18:18 AM Arterial Blood pH (Temp corrected) 7.323 L Arterial Blood pCO2 (Temp correct) 39.2 Arterial Blood pO2 (Temp corrected) 320.3 H Arterial Blood HCO3 19.9 L Arterial Blood Base Excess -5.7 L Arterial Blood Oxygen Saturation 99.5 H Derek Test N/A Arterial Blood Gas Puncture Site Right Brachial Arterial Blood Carboxyhemoglobin 0.3 Arterial Blood Methemoglobin 0.3 Blood Gas A-a O2 Differential 353.5 H Oxyhemoglobin Percent 98.9 Total Hemoglobin 9.5 L Blood Gas Temperature 37.0 Blood Gas Respiration Rate 16.0 Blood Gas Actual Respiration Rate 25 Blood Gas Modality VENT - AC FiO2 100.0 Blood Gas Tidal Volume 500.0 Blood Gas Low PEEP Setting 5.0 Blood Gas Notified Whom Kristie ROQUE Blood Gas Notified Time 01/08/2017 3:29:19 AM Test 01/08/17 03:25 01/08/17 04:15 01/08/17 05:02 01/08/17 08:15 White Blood Count 10.0 # Red Blood Count 2.78 L Hemoglobin 8.6 L Hematocrit 27.5 L Mean Corpuscular Volume 98.9 Mean Corpuscular Hemoglobin 30.9 Mean Corpuscular Hemoglobin Concent 31.3 L Red Cell Distribution Width 13.7 Platelet Count 204 Mean Platelet Volume 10.1 Neutrophils % 86.5 H Lymphocytes % 3.9 L Monocytes % 5.9 Eosinophils % 1.6 Basophils % 0.4 Nucleated Red Blood Cells % 0.0 Neutrophils # 8.6 H Lymphocytes # 0.4 L Monocytes # 0.6 Eosinophils # 0.2 Basophils # 0.0 Nucleated Red Blood Cells # 0.0 Prothrombin Time 16.3 H Prothrombin Time Ratio 1.3 INR International Normalized Ratio 1.30 Activated Partial Thromboplast Time 34.1 Sodium Level 140 Potassium Level 4.7 Chloride Level 99 Carbon Dioxide Level 24 Anion Gap 22 H Blood Urea Nitrogen 29 H Creatinine 4.15 H Glucose Level 348 #H Calcium Level 9.4 Phosphorus Level 6.5 H Magnesium Level 1.9 Lactic Acid Level 3.5 H Lab Scanned Report BLOOD TRANSFUSION Bedside Glucose 275 H Test 01/08/17 11:22 Bedside Glucose 247 H Medications Current Medications Ondansetron HCl (Zofran Inj) 4 mg Q6H PRN IV NAUSEA AND/OR VOMITING Last administered on 12/13/16 01:13; Admin Dose 4 MG; Start 12/02/16 at 22:30 Miscellaneous Information 1 ea NOTE XX ; Start 12/02/16 at 23:00 Glucose (Glutose) 15 gm Q15M PRN PO DECREASED GLUCOSE; Start 12/02/16 at 23:00 Glucose (Glutose) 22.5 gm Q15M PRN PO DECREASED GLUCOSE; Start 12/02/16 at 23: 00 Dextrose (D50w Syringe) 25 ml Q15M PRN IV DECREASED GLUCOSE Last administered on 12/10/16 05:52; Admin Dose 25 ML; Start 12/02/16 at 23:00 Dextrose (D50w Syringe) 50 ml Q15M PRN IV DECREASED GLUCOSE; Start 12/02/16 at 23:00 Glucagon (Glucagen) 1 mg Q15M PRN IM DECREASED GLUCOSE; Start 12/02/16 at 23:00 Glucose (Glutose) 15 gm Q15M PRN BUCCAL DECREASED GLUCOSE; Start 12/02/16 at 23 :00 Gabapentin (Neurontin) 800 mg TID PO Last administered on 12/08/16 20:33; Admin Dose 800 MG; Start 12/03/16 at 09:00; Status Future Hold Meclizine HCl (Antivert) 25 mg TID PRN PO dizziness Last administered on 09:37; Admin Dose 25 MG; Start 12/02/16 at 23:00 Terazosin HCl (Hytrin) 5 mg HS PO Last administered on 12/07/16 20:28; Admin Dose 5 MG; Start 12/03/16 at 21:00; Status Future Hold Acetaminophen/ Hydrocodone Bitart ([place] (5/325)) 1 tab Q6H PRN PO PAIN LEVEL 4 -7 Last administered on 12/23/16 22:14; Admin Dose 1 TAB; Start 12/02/16 at 23: 30 Acetaminophen (Tylenol Tab) 650 mg Q6H PRN PO PAIN AND OR ELEVATED TEMP Last administered on 01/07/17 01:27; Admin Dose 650 MG; Start 12/02/16 at 23:30 Docusate Sodium (Colace) 100 mg BID PO Last administered on 12/08/16 20:32; Admin Dose 100 MG; Start 12/03/16 at 09:00; Status Future Hold Zolpidem Tartrate (Ambien) 5 mg HS PRN PO INSOMNIA Last administered on 20:53; Admin Dose 5 MG; Start 12/02/16 at 23:30 Benazepril HCl (Lotensin) 10 mg DAILY PO Last administered on 12/07/16 08:26; Admin Dose 10 MG; Start 12/04/16 at 09:00; Status Future Hold Morphine Sulfate (morphine) 2 mg Q2H PRN IV PAIN Last administered on 12/20/16 03:22; Admin Dose 2 MG; Start 12/09/16 at 09:30 Acetaminophen 650 mg 650 mg Q6H PRN [place] ELEVATED TEMPERATURE Last administered on 12/09/16 17:53; Admin Dose 650 MG; Start 12/09/16 at 17:00 Piperacillin Sod/ Tazobactam Sod (Zosyn 2.25gm/ 50ml (Pmx)) 50 ml @ 100 mls/hr Q12 IVPB Last administered on 01/08/17 08:35; Admin Dose 100 MLS/HR; Start at 21:00 Metoprolol Tartrate (Lopressor) 5 mg Q4H PRN IV HR>100 Last administered on 22:23; Admin Dose 5 MG; Start 12/09/16 at 17:48 Hydralazine HCl (Apresoline) 10 mg Q6H PRN IV SBP>150mm hg Last administered on 12/19/16 08:50; Admin Dose 10 MG; Start 12/11/16 at 10:30 Morphine Sulfate (morphine) 2 mg Q2H PRN IV PAIN LEVEL 4-7; Start 12/13/16 at 10 :00 Pantoprazole (Protonix Tab) 40 mg DAILY@06 PO Last administered on 01/08/17 06 :57; Admin Dose 40 MG; Start 12/23/16 at 06:00 Insulin Glargine (Lantus) 22 unit DAILY@20 SC Last administered on 01/07/17 22 :57; Admin Dose 22 UNIT; Start 12/25/16 at 20:00 Diagnostic Test (Pha) (Accu-Chek) 1 ea 02 XX Last administered on 01/06/17 02: 27; Admin Dose 1 EA; Start 12/30/16 at 02:00 Metoprolol Tartrate (Lopressor) 25 mg BID PO Last administered on 01/08/17 08: 36; Admin Dose 25 MG; Start 12/30/16 at 21:00 Aspirin (Halfprin) 81 mg DAILY PO Last administered on 01/08/17 08:35; Admin Dose 81 MG; Start 12/31/16 at 09:00 Apixaban (Eliquis) 2.5 mg BID PO Last administered on 01/08/17 08:36; Admin Dose 2.5 MG; Start 12/30/16 at 21:00 Amiodarone HCl (Cordarone) 200 mg DAILY PO Last administered on 01/08/17 08:35 ; Admin Dose 200 MG; Start 12/31/16 at 09:00 Collagenase 1 applic 1 applic DAILY TOP Last administered on 01/08/17 09:32; Admin Dose 1 APPLIC; Start 01/04/17 at 09:00 Propofol 100 ml @ 2.544 mls/ hr Q12H IV Last administered on 01/08/17 04:00; Admin Dose 2.544 MLS/HR; Start 01/08/17 at 04:00 Sodium Chloride (NS) 1,000 ml @ 100 mls/hr Q10H IV Last administered on 04:00; Admin Dose 100 MLS/HR; Start 01/08/17 at 04:00 Assessment/Plan Additional Assessment/Plan IMP: 1. Cardiopulmonary Arrest: Likely a respiratory event leading to the asystolic event. 2. CHF/Volume overload 3. Respiratory Failure 4. Concern for Anoxic Brain Injury 5. Fungemia 6. ESRD on HD 7. Anemia RECS: 1. Vent support 2. Abx per ID 3. HD/UF 4. Keep off sedatives 5. Follow neuro status closely 6. Will need to address goals of care with family 35 min cc time JACOB SANTIZO MD January 08, 2017 12:33
--- NOTE | 2017-01-08 15:40 | CONS ---
Date/Time of Note Date/Time of Note DATE: 01/08/17 TIME: 15:38 Assessment/Plan Assessment/Plan Additional Assessment/Plan 1. Oliguric to Anuric Acute kidney injury 2/2 ATN- started on HD on 12/09/16 for acute fluid overload and Pulmonary edema 2. acute resp failure intubated on ventilator -now extubated on 12/10/2016- then again reintubated on 12/13/2016- now self extubated on 12/18/16 3. Moderate to large right pleural effusion s/p Right thoracentesis 900 cc drained on 12/16/16 2. Left foot diabetic ulcer/cellulitis currently on IV antibiotics, Zosyn and vancomycin. 3. History of diabetes mellitus, insulin-dependent with lower extremity neuropathy. 4. History of hypertension. 5. History of aortic stenosis with diastolic dysfunction with ejection fraction 60% on echocardiogram. PLAN: S/p HD today 4 L remvoed, BP stable,s till overloaded, will plan for HD tomorrow s/p Right chest Permacath placement for dialysis access HD placement done at [facility] - done- pt gets HD on , , and will continue to follow up Consultation Date/Type/Reason Admit Date/Time Dec 02, 2016 at 21:01 Initial Consult Date Type of Consultation: NEPHROLOGY Referring Provider: VIET PARKER MD 24 HR Interval Summary Free Text/Dictation s/p HD today 4 L removed, BP stable, still overloaded Exam/Review of Systems Vital Signs Vitals Vital Signs Date Time Temp Pulse Resp B/P Pulse Ox O2 Delivery O2 Flow Rate FiO2 01/08/17 14:00 96 24 110/67 99 Mechanical Ventilator 01/08/17 13:00 99.8 01/08/17 12:00 40 01/07/17 14:56 2.0 Intake and Output 01/07/17 01/07/17 01/08/17 15:00 23:00 07:00 Intake Total 50 ml 1000 ml 1412.5 ml Output Total 100 ml Balance 50 ml 1000 ml 1312.5 ml Exam Constitutional: alert Neck: supple Respiratory: crackles/rales Cardiovascular: nl pulses, regular rate and rhythm Gastrointestinal: non-tender, soft Musculoskeletal: nl extremities to inspection Extremities: No edema Neurological: BIOINFORMAT[employer] ASSISTANT II-XII intact, nl mental status, nl speech Skin: rash or lesions (L 1st toe: plantar aspect has eschar, dry non-TTP) Results Result Diagram: 01/08/17 0325 01/08/17 0325 Results 24 hrs Laboratory Tests Test 01/07/17 18:03 01/07/17 22:40 01/08/17 02:04 01/08/17 02:38 Bedside Glucose 209 173 205 Blood Gas Specimen Source Blood arterial Arterial Blood Date Drawn 01/08/2017 3:18:18 AM Arterial Blood pH (Temp corrected) 7.323 L Arterial Blood pCO2 (Temp correct) 39.2 Arterial Blood pO2 (Temp corrected) 320.3 H Arterial Blood HCO3 19.9 L Arterial Blood Base Excess -5.7 L Arterial Blood Oxygen Saturation 99.5 H Derek Test N/A Arterial Blood Gas Puncture Site Right Brachial Arterial Blood Carboxyhemoglobin 0.3 Arterial Blood Methemoglobin 0.3 Blood Gas A-a O2 Differential 353.5 H Oxyhemoglobin Percent 98.9 Total Hemoglobin 9.5 L Blood Gas Temperature 37.0 Blood Gas Respiration Rate 16.0 Blood Gas Actual Respiration Rate 25 Blood Gas Modality VENT - AC FiO2 100.0 Blood Gas Tidal Volume 500.0 Blood Gas Low PEEP Setting 5.0 Blood Gas Notified Whom Kristie MYA Blood Gas Notified Time 01/08/2017 3:29:19 AM Test 01/08/17 03:25 01/08/17 04:15 01/08/17 05:02 01/08/17 08:15 White Blood Count 10.0 # Red Blood Count 2.78 L Hemoglobin 8.6 L Hematocrit 27.5 L Mean Corpuscular Volume 98.9 Mean Corpuscular Hemoglobin 30.9 Mean Corpuscular Hemoglobin Concent 31.3 L Red Cell Distribution Width 13.7 Platelet Count 204 Mean Platelet Volume 10.1 Neutrophils % 86.5 H Lymphocytes % 3.9 L Monocytes % 5.9 Eosinophils % 1.6 Basophils % 0.4 Nucleated Red Blood Cells % 0.0 Neutrophils # 8.6 H Lymphocytes # 0.4 L Monocytes # 0.6 Eosinophils # 0.2 Basophils # 0.0 Nucleated Red Blood Cells # 0.0 Prothrombin Time 16.3 H Prothrombin Time Ratio 1.3 INR International Normalized Ratio 1.30 Activated Partial Thromboplast Time 34.1 Sodium Level 140 Potassium Level 4.7 Chloride Level 99 Carbon Dioxide Level 24 Anion Gap 22 H Blood Urea Nitrogen 29 H Creatinine 4.15 H Glucose Level 348 #H Calcium Level 9.4 Phosphorus Level 6.5 H Magnesium Level 1.9 Lactic Acid Level 3.5 H Lab Scanned Report BLOOD TRANSFUSION Bedside Glucose 275 H Test 01/08/17 11:22 Bedside Glucose 247 H Medications Medications Current Medications Ondansetron HCl (Zofran Inj) 4 mg Q6H PRN IV NAUSEA AND/OR VOMITING Last administered on 12/13/16 01:13; Admin Dose 4 MG; Start 12/02/16 at 22:30 Miscellaneous Information 1 ea NOTE XX ; Start 12/02/16 at 23:00 Glucose (Glutose) 15 gm Q15M PRN PO DECREASED GLUCOSE; Start 12/02/16 at 23:00 Glucose (Glutose) 22.5 gm Q15M PRN PO DECREASED GLUCOSE; Start 12/02/16 at 23: 00 Dextrose (D50w Syringe) 25 ml Q15M PRN IV DECREASED GLUCOSE Last administered on 12/10/16 05:52; Admin Dose 25 ML; Start 12/02/16 at 23:00 Dextrose (D50w Syringe) 50 ml Q15M PRN IV DECREASED GLUCOSE; Start 12/02/16 at 23:00 Glucagon (Glucagen) 1 mg Q15M PRN IM DECREASED GLUCOSE; Start 12/02/16 at 23:00 Glucose (Glutose) 15 gm Q15M PRN BUCCAL DECREASED GLUCOSE; Start 12/02/16 at 23 :00 Gabapentin (Neurontin) 800 mg TID PO Last administered on 12/08/16 20:33; Admin Dose 800 MG; Start 12/03/16 at 09:00; Status Future Hold Meclizine HCl (Antivert) 25 mg TID PRN PO dizziness Last administered on 09:37; Admin Dose 25 MG; Start 12/02/16 at 23:00 Terazosin HCl (Hytrin) 5 mg HS PO Last administered on 12/07/16 20:28; Admin Dose 5 MG; Start 12/03/16 at 21:00; Status Future Hold Acetaminophen/ Hydrocodone Bitart ([place] (5/325)) 1 tab Q6H PRN PO PAIN LEVEL 4 -7 Last administered on 12/23/16 22:14; Admin Dose 1 TAB; Start 12/02/16 at 23: 30 Acetaminophen (Tylenol Tab) 650 mg Q6H PRN PO PAIN AND OR ELEVATED TEMP Last administered on 01/07/17 01:27; Admin Dose 650 MG; Start 12/02/16 at 23:30 Docusate Sodium (Colace) 100 mg BID PO Last administered on 12/08/16 20:32; Admin Dose 100 MG; Start 12/03/16 at 09:00; Status Future Hold Zolpidem Tartrate (Ambien) 5 mg HS PRN PO INSOMNIA Last administered on 20:53; Admin Dose 5 MG; Start 12/02/16 at 23:30 Benazepril HCl (Lotensin) 10 mg DAILY PO Last administered on 12/07/16 08:26; Admin Dose 10 MG; Start 12/04/16 at 09:00; Status Future Hold Morphine Sulfate (morphine) 2 mg Q2H PRN IV PAIN Last administered on 12/20/16 03:22; Admin Dose 2 MG; Start 12/09/16 at 09:30 Acetaminophen 650 mg 650 mg Q6H PRN [place] ELEVATED TEMPERATURE Last administered on 12/09/16 17:53; Admin Dose 650 MG; Start 12/09/16 at 17:00 Piperacillin Sod/ Tazobactam Sod (Zosyn 2.25gm/ 50ml (Pmx)) 50 ml @ 100 mls/hr Q12 IVPB Last administered on 01/08/17 08:35; Admin Dose 100 MLS/HR; Start at 21:00 Metoprolol Tartrate (Lopressor) 5 mg Q4H PRN IV HR>100 Last administered on 22:23; Admin Dose 5 MG; Start 12/09/16 at 17:48 Hydralazine HCl (Apresoline) 10 mg Q6H PRN IV SBP>150mm hg Last administered on 12/19/16 08:50; Admin Dose 10 MG; Start 12/11/16 at 10:30 Morphine Sulfate (morphine) 2 mg Q2H PRN IV PAIN LEVEL 4-7; Start 12/13/16 at 10 :00 Pantoprazole (Protonix Tab) 40 mg DAILY@06 PO Last administered on 01/08/17 06 :57; Admin Dose 40 MG; Start 12/23/16 at 06:00 Insulin Glargine (Lantus) 22 unit DAILY@20 SC Last administered on 01/07/17 22 :57; Admin Dose 22 UNIT; Start 12/25/16 at 20:00 Diagnostic Test (Pha) (Accu-Chek) 1 ea 02 XX Last administered on 01/06/17 02: 27; Admin Dose 1 EA; Start 12/30/16 at 02:00 Metoprolol Tartrate (Lopressor) 25 mg BID PO Last administered on 01/08/17 08: 36; Admin Dose 25 MG; Start 12/30/16 at 21:00 Aspirin (Halfprin) 81 mg DAILY PO Last administered on 01/08/17 08:35; Admin Dose 81 MG; Start 12/31/16 at 09:00 Apixaban (Eliquis) 2.5 mg BID PO Last administered on 01/08/17 08:36; Admin Dose 2.5 MG; Start 12/30/16 at 21:00 Amiodarone HCl (Cordarone) 200 mg DAILY PO Last administered on 01/08/17 08:35 ; Admin Dose 200 MG; Start 12/31/16 at 09:00 Collagenase 1 applic 1 applic DAILY TOP Last administered on 01/08/17 09:32; Admin Dose 1 APPLIC; Start 01/04/17 at 09:00 Propofol 100 ml @ 2.544 mls/ hr Q12H IV Last administered on 01/08/17 04:00; Admin Dose 2.544 MLS/HR; Start 01/08/17 at 04:00 Sodium Chloride (NS) 1,000 ml @ 100 mls/hr Q10H IV Last administered on 14:03; Admin Dose 100 MLS/HR; Start 01/08/17 at 04:00 TASHIA MCGARRY MD January 08, 2017 15:39
[2017-01-08] MEDS: LINEZOLID 600 MG/D5W (PMX) 300 ML IVPB SCH (17:42)
--- NOTE | 2017-01-08 18:10 | CONS ---
Date/Time of Note Date/Time of Note DATE: 01/08/17 TIME: 17:53 Assessment/Plan Assessment/Plan Additional Assessment/Plan Respiratory failure on Ventilator PAF in Sinus Tachycardia CHF Severe Aortic Stenosis Osteomyelitis Cellulitis left foot Diabetic foot Diabetes Tobacco abuse He went into respiratory distress and had to be intubated and went into PEA arrest and CPR was initiated given epinephrine, atropine and calcium chloride Continue Vent support Continue aggressive Pulmonary Toiletry Avoid Diuretics Avoid Volume Overload Continue Metoprolol Continue Amiodarone Continue Eliquis Continue Insulin Continue antibiotics HD as scheduled Consultation Date/Type/Reason Admit Date/Time Dec 02, 2016 at 21:01 Constitutional: requiring O2 Eyes: no complaints ENT: no complaints Respiratory: no complaints Cardiovascular: no complaints Gastrointestinal: no complaints Genitourinary: no complaints Musculoskeletal: bone/joint pain Skin: other Neurologic: no complaints Endocrine: no complaints Lymphatic: no complaints Psychological: nl mood/affect, no complaints Immunologic: no complaints Social History Smoking Status: Former smoker Exam/Review of Systems Vital Signs Vitals Vital Signs Date Time Temp Pulse Resp B/P Pulse Ox O2 Delivery O2 Flow Rate FiO2 01/08/17 17:00 105 24 116/53 90 Mechanical Ventilator 01/08/17 17:00 40 01/08/17 16:00 98.4 01/07/17 14:56 2.0 Intake and Output 01/07/17 01/07/17 01/08/17 15:00 23:00 07:00 Intake Total 50 ml 1000 ml 1412.5 ml Output Total 100 ml Balance 50 ml 1000 ml 1312.5 ml Exam Non responsive HEENT Intubated CVS Tachycardic, with Systolic murmur heard at LSB RS Mechanical Breath sounds heard bilaterally Abd BS sounds heard Ext No pedal edema Results Result Diagram: 01/08/17 0325 01/08/17 0325 Results 24 hrs Laboratory Tests Test 01/07/17 18:03 01/07/17 22:40 01/08/17 02:04 01/08/17 02:38 Bedside Glucose 209 173 205 Blood Gas Specimen Source Blood arterial Arterial Blood Date Drawn 01/08/2017 3:18:18 AM Arterial Blood pH (Temp corrected) 7.323 L Arterial Blood pCO2 (Temp correct) 39.2 Arterial Blood pO2 (Temp corrected) 320.3 H Arterial Blood HCO3 19.9 L Arterial Blood Base Excess -5.7 L Arterial Blood Oxygen Saturation 99.5 H Deerk Test N/A Arterial Blood Gas Puncture Site Right Brachial Arterial Blood Carboxyhemoglobin 0.3 Arterial Blood Methemoglobin 0.3 Blood Gas A-a O2 Differential 353.5 H Oxyhemoglobin Percent 98.9 Total Hemoglobin 9.5 L Blood Gas Temperature 37.0 Blood Gas Respiration Rate 16.0 Blood Gas Actual Respiration Rate 25 Blood Gas Modality VENT - AC FiO2 100.0 Blood Gas Tidal Volume 500.0 Blood Gas Low PEEP Setting 5.0 Blood Gas Notified Whom Kristie ROQUE Blood Gas Notified Time 01/08/2017 3:29:19 AM Test 01/08/17 03:25 01/08/17 04:15 01/08/17 05:02 01/08/17 08:15 White Blood Count 10.0 # Red Blood Count 2.78 L Hemoglobin 8.6 L Hematocrit 27.5 L Mean Corpuscular Volume 98.9 Mean Corpuscular Hemoglobin 30.9 Mean Corpuscular Hemoglobin Concent 31.3 L Red Cell Distribution Width 13.7 Platelet Count 204 Mean Platelet Volume 10.1 Neutrophils % 86.5 H Lymphocytes % 3.9 L Monocytes % 5.9 Eosinophils % 1.6 Basophils % 0.4 Nucleated Red Blood Cells % 0.0 Neutrophils # 8.6 H Lymphocytes # 0.4 L Monocytes # 0.6 Eosinophils # 0.2 Basophils # 0.0 Nucleated Red Blood Cells # 0.0 Prothrombin Time 16.3 H Prothrombin Time Ratio 1.3 INR International Normalized Ratio 1.30 Activated Partial Thromboplast Time 34.1 Sodium Level 140 Potassium Level 4.7 Chloride Level 99 Carbon Dioxide Level 24 Anion Gap 22 H Blood Urea Nitrogen 29 H Creatinine 4.15 H Glucose Level 348 #H Calcium Level 9.4 Phosphorus Level 6.5 H Magnesium Level 1.9 Lactic Acid Level 3.5 H Lab Scanned Report BLOOD TRANSFUSION Bedside Glucose 275 H Test 01/08/17 11:22 01/08/17 17:21 Bedside Glucose 247 H 190 Medications Medications Current Medications Ondansetron HCl (Zofran Inj) 4 mg Q6H PRN IV NAUSEA AND/OR VOMITING Last administered on 12/13/16t 01:13; Admin Dose 4 MG; Start 12/02/16 at 22:30 Miscellaneous Information 1 ea NOTE XX ; Start 12/02/16 at 23:00 Glucose (Glutose) 15 gm Q15M PRN PO DECREASED GLUCOSE; Start 12/02/16 at 23:00 Glucose (Glutose) 22.5 gm Q15M PRN PO DECREASED GLUCOSE; Start 12/02/16 at 23: 00 Dextrose (D50w Syringe) 25 ml Q15M PRN IV DECREASED GLUCOSE Last administered on 12/10/16 05:52; Admin Dose 25 ML; Start 12/02/16 at 23:00 Dextrose (D50w Syringe) 50 ml Q15M PRN IV DECREASED GLUCOSE; Start 12/02/16 at 23:00 Glucagon (Glucagen) 1 mg Q15M PRN IM DECREASED GLUCOSE; Start 12/02/16 at 23:00 Glucose (Glutose) 15 gm Q15M PRN BUCCAL DECREASED GLUCOSE; Start 12/02/16 at 23 :00 Gabapentin (Neurontin) 800 mg TID PO Last administered on 12/08/16 20:33; Admin Dose 800 MG; Start 12/03/16 at 09:00; Status Future Hold Meclizine HCl (Antivert) 25 mg TID PRN PO dizziness Last administered on 09:37; Admin Dose 25 MG; Start 12/02/16 at 23:00 Terazosin HCl (Hytrin) 5 mg HS PO Last administered on 12/07/16 20:28; Admin Dose 5 MG; Start 12/03/16 at 21:00; Status Future Hold Acetaminophen/ Hydrocodone Bitart ([place] (5/325)) 1 tab Q6H PRN PO PAIN LEVEL 4 -7 Last administered on 12/23/16 22:14; Admin Dose 1 TAB; Start 12/02/16 at 23: 30 Acetaminophen (Tylenol Tab) 650 mg Q6H PRN PO PAIN AND OR ELEVATED TEMP Last administered on 01/07/17 01:27; Admin Dose 650 MG; Start 12/02/16 at 23:30 Docusate Sodium (Colace) 100 mg BID PO Last administered on 12/08/16 20:32; Admin Dose 100 MG; Start 12/03/16 at 09:00; Status Future Hold Zolpidem Tartrate (Ambien) 5 mg HS PRN PO INSOMNIA Last administered on 20:53; Admin Dose 5 MG; Start 12/02/16 at 23:30 Benazepril HCl (Lotensin) 10 mg DAILY PO Last administered on 12/07/16 08:26; Admin Dose 10 MG; Start 12/04/16 at 09:00; Status Future Hold Morphine Sulfate (morphine) 2 mg Q2H PRN IV PAIN Last administered on 12/20/16 03:22; Admin Dose 2 MG; Start 12/09/16 at 09:30 Acetaminophen (Tylenol Supp) 650 mg Q6H PRN [place] ELEVATED TEMPERATURE Last administered on 12/09/16 17:53; Admin Dose 650 MG; Start 12/09/16 at 17:00 Metoprolol Tartrate (Lopressor) 5 mg Q4H PRN IV HR>100 Last administered on 22:23; Admin Dose 5 MG; Start 12/09/16 at 17:48 Hydralazine HCl (Apresoline) 10 mg Q6H PRN IV SBP>150mm hg Last administered on 12/19/16 08:50; Admin Dose 10 MG; Start 12/11/16 at 10:30 Morphine Sulfate (morphine) 2 mg Q2H PRN IV PAIN LEVEL 4-7; Start 12/13/16 at 10 :00 Pantoprazole (Protonix Tab) 40 mg DAILY@06 PO Last administered on 01/08/17 06 :57; Admin Dose 40 MG; Start 12/23/16 at 06:00 Insulin Glargine (Lantus) 22 unit DAILY@20 SC Last administered on 01/07/17 22 :57; Admin Dose 22 UNIT; Start 12/25/16 at 20:00 Diagnostic Test (Pha) (Accu-Chek) 1 ea 02 XX Last administered on 01/06/17 02: 27; Admin Dose 1 EA; Start 12/30/16 at 02:00 Metoprolol Tartrate (Lopressor) 25 mg BID PO Last administered on 01/08/17 08: 36; Admin Dose 25 MG; Start 12/30/16 at 21:00 Aspirin (Halfprin) 81 mg DAILY PO Last administered on 01/08/17 08:35; Admin Dose 81 MG; Start 12/31/16 at 09:00 Apixaban (Eliquis) 2.5 mg BID PO Last administered on 01/08/17 08:36; Admin Dose 2.5 MG; Start 12/30/16 at 21:00 Amiodarone HCl (Cordarone) 200 mg DAILY PO Last administered on 01/08/17 08:35 ; Admin Dose 200 MG; Start 12/31/16 at 09:00 Collagenase 1 applic 1 applic DAILY TOP Last administered on 01/08/17 09:32; Admin Dose 1 APPLIC; Start 01/04/17 at 09:00 Propofol 100 ml @ 2.544 mls/ hr Q12H IV Last administered on 01/08/17 04:00; Admin Dose 2.544 MLS/HR; Start 01/08/17 at 04:00 Sodium Chloride 1,000 ml @ 100 mls/hr Q10H IV Last administered on 01/08/17 14:03; Admin Dose 100 MLS/HR; Start 01/08/17 at 04:00 Meropenem 100 ml @ 200 mls/hr Q24H IVPB ; Start 01/08/17 at 21:00 Linezolid (Zyvox 600mg/D5W (Pmx)) 300 ml @ 300 mls/hr Q12 IVPB Last administered on 01/08/17 17:42; Admin Dose 300 MLS/HR; Start 01/08/17 at 18:00 VIRI ROY M.D. January 08, 2017 18:02
[2017-01-08 19:35] LABS: TROPONIN-I 0.374 ng/ml (0.00-0.12)
[2017-01-08] MEDS: MEROPENEM 500 MG/100 ML (PMX) 100 ML IVPB SCH (20:45)
[2017-01-08] MEDS: INSULIN GLARGINE [LANtus] 3 ML PEN SC SCH (21:16)
[2017-01-09] VITALS (60 sets, daily range): BP systolic 93–142; BP diastolic 35–72; PULSE 77–121; RESP 18–28
[2017-01-09] MEDS: ALBUTEROL 18 GM INHALER INH SCH ×4 (01:31→19:16)
[2017-01-09] MEDS: ACCU-CHEK XX SCH (02:43)
[2017-01-09] MEDS: SOD CHLORIDE 0.9% 1,000 ML IV SCH ×2 (02:45)
[2017-01-09] MEDS: PROPOFOL 100 ML IV SCH ×2 (04:00→16:00)
[2017-01-09] MEDS: METOPROLOL 25 MG TAB PO SCH ×2 (05:40)
[2017-01-09] MEDS: PANTOPRAZOLE (EC) 40 MG TAB PO SCH (05:40)
[2017-01-09 05:53] LABS: ADD SCAN DIFF NO
[2017-01-09 05:58] LABS: BASOPHILS % 0.2 % (0.0-2.0); EOSINOPHILS % 0.4 % (0.0-7.0); HEMOGLOBIN 8.3 g/dl (14.0-18.0); LYMPHOCYTES # 0.8 10^3/ul (0.8-2.9); LYMPHOCYTES % 8.9 % (15.0-51.0); MEAN CORPUSCULAR HEMOGLOBIN 30.9 pg (29.0-33.0); MEAN CORPUSCULAR HGB CONC 31.9 g/dl (32.0-37.0); MEAN CORPUSCULAR VOLUME 96.7 fl (82.0-101.0); MEAN PLATELET VOLUME 10.4 fl (7.4-10.4); MONOCYTES % 11.5 % (0.0-11.0); NEUTROPHIL # 6.6 10^3/ul (1.6-7.5); NEUTROPHILS % 78.4 % (39.0-77.0); PLATELET COUNT 206 10^3/UL (140-415); RED BLOOD COUNT 2.69 10^6/ul (4.70-6.10); RED CELL DISTRIBUTION WIDTH 13.7 % (11.5-14.5); WHITE BLOOD COUNT 8.4 10^3/ul (4.8-10.8)
[2017-01-09 06:30] LABS: POTASSIUM 3.6 mmol/L (3.5-5.1)
[2017-01-09 06:32] LABS: CREATININE 3.14 mg/dl (0.61-1.24)
[2017-01-09 06:33] LABS: CALCIUM 8.7 mg/dl (8.4-10.2)
[2017-01-09] MEDS: INSULIN ASPART [NOVOLOG] 3 ML PEN SC SCH ×6 (07:35→21:13)
[2017-01-09] MEDS: ASPIRIN (EC) 81 MG TAB PO SCH (08:51)
[2017-01-09] MEDS: APIXABAN 5 MG TABLET PO SCH ×2 (08:51→21:16)
[2017-01-09] MEDS: LINEZOLID 600 MG/D5W (PMX) 300 ML IVPB SCH ×2 (08:51→21:15)
[2017-01-09] MEDS: AMIODARONE 200 MG TAB PO SCH (08:52)
[2017-01-09] MEDS: COLLAGENASE 30 GM TUBE TOP SCH (08:52)
[2017-01-09 10:22] LABS: AADO2 Arterial 139.6 mmHg (7.0-24.0); Allen Test ACCEPTAB; Arterial Base Excess -1.3 mmol/L (-3.0-3); Arterial COHb 0.7 % (0.0-3.0); Arterial Fraction of Oxyhgb 96.6 % (93.0-99.0); Arterial HCO3 22.7 mmol/L (22.0-26.0); Arterial MetHb 0.3 % (0.0-1.5); MODE VENT - AC
--- NOTE | 2017-01-09 11:09 | CONS ---
Date/Time of Note Date/Time of Note DATE: 01/09/17 TIME: 11:05 Consult Date/Type/Reason Admit Date/Time Dec 02, 2016 at 21:01 Initial Consult Date 12/08/16 Type of Consultation: NEPHROLOGY Ordering Provider: VIET PARKER MD Subjective alert, open eyes, doesn't follow commands, S/p HD today 3 L remvoed, BP stable, dw staff. Objective Vital Signs Date Time Temp Pulse Resp B/P Pulse Ox O2 Delivery O2 Flow Rate FiO2 01/09/17 10:39 97 01/09/17 10:00 22 116/56 100 Mechanical Ventilator 01/09/17 09:35 40 01/09/17 08:00 97.8 01/07/17 14:56 2.0 Intake and Output 01/08/17 01/08/17 01/09/17 15:00 23:00 07:00 Intake Total 1105 ml 700 ml 800 ml Output Total 4300 ml 0 ml 0 ml Balance -3195 ml 700 ml 800 ml Exam Constitutional: open eyes, doesn't follow commands Neck: supple Respiratory: crackles/rales bilaterally, remains intubated Cardiovascular: nl pulses, regular rate and rhythm Gastrointestinal: non-tender, soft Musculoskeletal: (L 1st toe: plantar aspect has eschar, dry non-TTP) Extremities: No edema Neurological: open eyes, doesn't follow commands Skin: rash or lesions (L 1st toe: plantar aspect has eschar, dry non-TTP) Results/Medications Result Diagram: 01/09/17 0510 01/09/17 0510 Results 24 hrs Laboratory Tests Test 01/08/17 11:22 01/08/17 17:21 01/08/17 18:20 01/08/17 20:44 Bedside Glucose 247 H 190 210 Troponin I 0.374 *H B-Type Natriuretic Peptide 16471 H Test 01/09/17 01:21 01/09/17 02:43 01/09/17 05:00 01/09/17 05:10 Troponin I 0.323 *H 0.254 *H Bedside Glucose 169 Blood Gas Specimen Source Blood arterial Arterial Blood Date Drawn 01/09/2017 5:10:58 AM Arterial Blood pH (Temp corrected) 7.434 Arterial Blood pCO2 (Temp correct) 34.7 L Arterial Blood pO2 (Temp corrected) 105.7 H Arterial Blood HCO3 22.7 Arterial Blood Base Excess -1.3 Arterial Blood Oxygen Saturation 97.6 Derek Test ACCEPTAB Arterial Blood Gas Puncture Site Right Radial Arterial Blood Carboxyhemoglobin 0.7 Arterial Blood Methemoglobin 0.3 Blood Gas A-a O2 Differential 139.6 H Oxyhemoglobin Percent 96.6 Total Hemoglobin 8.0 L Blood Gas Temperature 37.0 Blood Gas Respiration Rate 16.0 Blood Gas Actual Respiration Rate 19 Blood Gas Modality VENT - AC FiO2 40.0 Blood Gas Tidal Volume 500.0 Blood Gas Low PEEP Setting 5.0 Blood Gas Notified Whom UP Blood Gas Notified Time 01/09/2017 5:30:44 AM White Blood Count 8.4 Red Blood Count 2.69 L Hemoglobin 8.3 L Hematocrit 26.0 L Mean Corpuscular Volume 96.7 Mean Corpuscular Hemoglobin 30.9 Mean Corpuscular Hemoglobin Concent 31.9 L Red Cell Distribution Width 13.7 Platelet Count 206 Mean Platelet Volume 10.4 Neutrophils % 78.4 H Lymphocytes % 8.9 L Monocytes % 11.5 H Eosinophils % 0.4 Basophils % 0.2 Nucleated Red Blood Cells % 0.0 Neutrophils # 6.6 Lymphocytes # 0.8 Monocytes # 1.0 H Eosinophils # 0.0 Basophils # 0.0 Nucleated Red Blood Cells # 0.0 Sodium Level 144 Potassium Level 3.6 Chloride Level 113 H Carbon Dioxide Level 25 Anion Gap 10 # Blood Urea Nitrogen 27 H Creatinine 3.14 #H Glucose Level 176 # Lactic Acid Level 0.9 Calcium Level 8.7 Test 01/09/17 08:25 Bedside Glucose 197 Medications Current Medications Ondansetron HCl (Zofran Inj) 4 mg Q6H PRN IV NAUSEA AND/OR VOMITING Last administered on 12/13/16 01:13; Admin Dose 4 MG; Start 12/02/16 at 22:30 Miscellaneous Information 1 ea NOTE XX ; Start 12/02/16 at 23:00 Glucose (Glutose) 15 gm Q15M PRN PO DECREASED GLUCOSE; Start 12/02/16 at 23:00 Glucose (Glutose) 22.5 gm Q15M PRN PO DECREASED GLUCOSE; Start 12/02/16 at 23: 00 Dextrose (D50w Syringe) 25 ml Q15M PRN IV DECREASED GLUCOSE Last administered on 12/10/16 05:52; Admin Dose 25 ML; Start 12/02/16 at 23:00 Dextrose (D50w Syringe) 50 ml Q15M PRN IV DECREASED GLUCOSE; Start 12/02/16 at 23:00 Glucagon (Glucagen) 1 mg Q15M PRN IM DECREASED GLUCOSE; Start 12/02/16 at 23:00 Glucose (Glutose) 15 gm Q15M PRN BUCCAL DECREASED GLUCOSE; Start 12/02/16 at 23 :00 Gabapentin (Neurontin) 800 mg TID PO Last administered on 12/08/16 20:33; Admin Dose 800 MG; Start 12/03/16 at 09:00; Status Future Hold Meclizine HCl (Antivert) 25 mg TID PRN PO dizziness Last administered on 09:37; Admin Dose 25 MG; Start 12/02/16 at 23:00 Terazosin HCl (Hytrin) 5 mg HS PO Last administered on 12/07/16 20:28; Admin Dose 5 MG; Start 12/03/16 at 21:00; Status Future Hold Acetaminophen/ Hydrocodone Bitart ([place] (5/325)) 1 tab Q6H PRN PO PAIN LEVEL 4 -7 Last administered on 12/23/16 22:14; Admin Dose 1 TAB; Start 12/02/16 at 23: 30 Acetaminophen (Tylenol Tab) 650 mg Q6H PRN PO PAIN AND [place] ELEVATED TEMP Last administered on 01/07/17 01:27; Admin Dose 650 MG; Start 12/02/16 at 23:30 Docusate Sodium (Colace) 100 mg BID PO Last administered on 12/08/16 20:32; Admin Dose 100 MG; Start 12/03/16 at 09:00; Status Future Hold Zolpidem Tartrate (Ambien) 5 mg HS PRN PO INSOMNIA Last administered on 20:53; Admin Dose 5 MG; Start 12/02/16 at 23:30 Benazepril HCl (Lotensin) 10 mg DAILY PO Last administered on 12/07/16 08:26; Admin Dose 10 MG; Start 12/04/16 at 09:00; Status Future Hold Morphine Sulfate (morphine) 2 mg Q2H PRN IV PAIN Last administered on 12/20/16 03:22; Admin Dose 2 MG; Start 12/09/16 at 09:30 Acetaminophen (Tylenol Supp) 650 mg Q6H PRN [place] ELEVATED TEMPERATURE Last administered on 12/09/16 17:53; Admin Dose 650 MG; Start 12/09/16 at 17:00 Metoprolol Tartrate (Lopressor) 5 mg Q4H PRN IV HR>100 Last administered on 22:23; Admin Dose 5 MG; Start 12/09/16 at 17:48 Hydralazine HCl (Apresoline) 10 mg Q6H PRN IV SBP>150mm hg Last administered on 12/19/16 08:50; Admin Dose 10 MG; Start 12/11/16 at 10:30 Morphine Sulfate (morphine) 2 mg Q2H PRN IV PAIN LEVEL 4-7; Start 12/13/16 at 10 :00 Pantoprazole (Protonix Tab) 40 mg DAILY@06 PO Last administered on 01/09/17 05 :40; Admin Dose 40 MG; Start 12/23/16 at 06:00 Insulin Glargine (Lantus) 22 unit DAILY@20 SC Last administered on 01/08/17 21 :16; Admin Dose 22 UNIT; Start 12/25/16 at 20:00 Diagnostic Test (Pha) (Accu-Chek) 1 ea 02 XX Last administered on 01/09/17 02: 43; Admin Dose 1 EA; Start 12/30/16 at 02:00 Aspirin (Halfprin) 81 mg DAILY PO Last administered on 01/09/17 08:51; Admin Dose 81 MG; Start 12/31/16 at 09:00 Apixaban (Eliquis) 2.5 mg BID PO Last administered on 01/09/17 08:51; Admin Dose 2.5 MG; Start 12/30/16 at 21:00 Amiodarone HCl (Cordarone) 200 mg DAILY PO Last administered on 01/09/17 08:52 ; Admin Dose 200 MG; Start 12/31/16 at 09:00 Collagenase 1 applic 1 applic DAILY TOP Last administered on 01/09/17 08:52; Admin Dose 1 APPLIC; Start 01/04/17 at 09:00 Propofol 100 ml @ 2.544 mls/ hr Q12H IV Last administered on 01/08/17 04:00; Admin Dose 2.544 MLS/HR; Start 01/08/17 at 04:00 Sodium Chloride 1,000 ml @ 100 mls/hr Q10H IV Last administered on 01/09/17 02:45; Admin Dose 100 MLS/HR; Start 01/08/17 at 04:00 Meropenem 100 ml @ 200 mls/hr Q24H IVPB Last administered on 01/08/17 20:45; Admin Dose 200 MLS/HR; Start 01/08/17 at 21:00 Linezolid (Zyvox 600mg/D5W (Pmx)) 300 ml @ 300 mls/hr Q12 IVPB Last administered on 01/09/17 08:51; Admin Dose 300 MLS/HR; Start 01/08/17 at 18:00 Metoprolol Tartrate (Lopressor) 25 mg Q6 PO Last administered on 01/08/17 18: 18; Admin Dose 25 MG; Start 01/08/17 at 18:00 Assessment/Plan Additional Assessment/Plan - Positive troponin- per cardio, ICU monitoring. - Oliguric to Anuric Acute kidney injury 2/2 ATN- started on HD on 12/09/16 for acute fluid overload and Pulmonary edema - Acute resp failure - intubated on ventilator -now extubated on 12/10/2016- then again reintubated on 12/13/2016- now self extubated on 12/18/16 - Moderate to large right pleural effusion s/p Right thoracentesis 900 cc drained on 12/16/16 - Left foot diabetic ulcer/cellulitis currently on IV antibiotics, Zosyn and vancomycin. - History of diabetes mellitus, insulin-dependent with lower extremity neuropathy. - History of hypertension. - History of aortic stenosis with diastolic dysfunction with ejection fraction 60% on echocardiogram. PLAN: S/p HD today 3 L removed today, BP stable,still overloaded- will stop IVF. s/p Right chest Permacath placement for dialysis access HD placement done at [facility] - done- pt gets HD on , , and will continue to follow up Further recommendations depend upon patient's clinical course. Plan of care discussed with Dr Juan M Remy/staff YULIANA SIMMONS January 09, 2017 11:09
--- NOTE | 2017-01-09 11:54 | PN ---
Date/Time of Note Date/Time of Note DATE: 01/09/17 TIME: 11:54 Assessment/Plan VTE Prophylaxis VTE Prophylaxis Intervention: other Lines/Catheters IV [facility]from [facility] permacath Urinary Cath still in place: No Assessment/Plan Chief Complaint/Hosp Course - s/p code blue, is on ventilator, monitor closely - Acute respiratory failure secondary to pulmonary edema, resolved. Dr. Alvarez is following from pulmonology standpoint. - Bilateral pleural effusion, this post right sided thoracentesis with removal of 900 cc of fluid. - Acute renal failure, Dr. Remy is following in nephrology consultation. Continue hemodialysis per nephrology. Pending permacath placement by vascular surgery. - Acute to subacute right occipital lobe ischemic infarct per CT, Dr Morris is following in neurology consultation. - Paroxysmal atrial fibrillation and positive troponin. Dr. Cobian is following and cardiology consultation. Status post Lexiscan on 12/24. - Fungemia, om Caspofungin. Dr. Pascual is following in infection disease consultation. - Diabetic foot ulcer of the left foot, Dr Lin is following in podiatry consultation. - Cellulitis of left foot, 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 and left fourth proximal phalanx per bone scan. Continue antibiotics per ID. - Aortic stenosis - Diastolic dysfunction congestive heart failure with preserved ejection fraction of 60%. - DM, Hgb A1c is 8.7, continue Lantus and pre-meal NovoLog and NovoLog per sliding scale. -Traumatic hematuria,, resolved. Dr. Grey urology consult is appreciated. Problems: Subjective 24 Hr Interval Summary Free Text/Dictation Patient remains intubated, appears less responsive today Exam/Review of Systems Vital Signs Vitals Vital Signs Date Time Temp Pulse Resp B/P Pulse Ox O2 Delivery O2 Flow Rate FiO2 01/09/17 10:39 97 01/09/17 10:00 22 116/56 100 Mechanical Ventilator 01/09/17 09:35 40 01/09/17 08:00 97.8 01/07/17 14:56 2.0 Intake and Output 01/08/17 01/08/17 01/09/17 15:00 23:00 07:00 Intake Total 1105 ml 700 ml 800 ml Output Total 4300 ml 0 ml 0 ml Balance -3195 ml 700 ml 800 ml Exam Constitutional: well developed Head: atraumatic, normocephalic Neck: supple Respiratory: diminished breath sounds Cardiovascular: regular rate and rhythm Gastrointestinal: soft Extremities: normal pulses Results Result Diagram: 01/09/17 0510 01/09/17 0510 Results 24 hrs Laboratory Tests Test 01/08/17 17:21 01/08/17 18:20 01/08/17 20:44 01/09/17 01:21 Bedside Glucose 190 210 Troponin I 0.374 *H 0.323 *H B-Type Natriuretic Peptide 57410 H Test 01/09/17 02:43 01/09/17 05:00 01/09/17 05:10 01/09/17 08:25 Bedside Glucose 169 197 Blood Gas Specimen Source Blood arterial Arterial Blood Date Drawn 01/09/2017 5:10:58 AM Arterial Blood pH (Temp corrected) 7.434 Arterial Blood pCO2 (Temp correct) 34.7 L Arterial Blood pO2 (Temp corrected) 105.7 H Arterial Blood HCO3 22.7 Arterial Blood Base Excess -1.3 Arterial Blood Oxygen Saturation 97.6 Derek Test ACCEPTAB Arterial Blood Gas Puncture Site Right Radial Arterial Blood Carboxyhemoglobin 0.7 Arterial Blood Methemoglobin 0.3 Blood Gas A-a O2 Differential 139.6 H Oxyhemoglobin Percent 96.6 Total Hemoglobin 8.0 L Blood Gas Temperature 37.0 Blood Gas Respiration Rate 16.0 Blood Gas Actual Respiration Rate 19 Blood Gas Modality VENT - AC FiO2 40.0 Blood Gas Tidal Volume 500.0 Blood Gas Low PEEP Setting 5.0 Blood Gas Notified Whom UP Blood Gas Notified Time 01/09/2017 5:30:44 AM White Blood Count 8.4 Red Blood Count 2.69 L Hemoglobin 8.3 L Hematocrit 26.0 L Mean Corpuscular Volume 96.7 Mean Corpuscular Hemoglobin 30.9 Mean Corpuscular Hemoglobin Concent 31.9 L Red Cell Distribution Width 13.7 Platelet Count 206 Mean Platelet Volume 10.4 Neutrophils % 78.4 H Lymphocytes % 8.9 L Monocytes % 11.5 H Eosinophils % 0.4 Basophils % 0.2 Nucleated Red Blood Cells % 0.0 Neutrophils # 6.6 Lymphocytes # 0.8 Monocytes # 1.0 H Eosinophils # 0.0 Basophils # 0.0 Nucleated Red Blood Cells # 0.0 Sodium Level 144 Potassium Level 3.6 Chloride Level 113 H Carbon Dioxide Level 25 Anion Gap 10 # Blood Urea Nitrogen 27 H Creatinine 3.14 #H Glucose Level 176 # Lactic Acid Level 0.9 Calcium Level 8.7 Troponin I 0.254 *H Medications Medications Current Medications Ondansetron HCl (Zofran Inj) 4 mg Q6H PRN IV NAUSEA AND/OR VOMITING Last administered on 12/13/16 01:13; Admin Dose 4 MG; Start 12/02/16 at 22:30 Miscellaneous Information 1 ea NOTE XX ; Start 12/02/16 at 23:00 Glucose (Glutose) 15 gm Q15M PRN PO DECREASED GLUCOSE; Start 12/02/16 at 23:00 Glucose (Glutose) 22.5 gm Q15M PRN PO DECREASED GLUCOSE; Start 12/02/16 at 23: 00 Dextrose (D50w Syringe) 25 ml Q15M PRN IV DECREASED GLUCOSE Last administered on 12/10/16 05:52; Admin Dose 25 ML; Start 12/02/16 at 23:00 Dextrose (D50w Syringe) 50 ml Q15M PRN IV DECREASED GLUCOSE; Start 12/02/16 at 23:00 Glucagon (Glucagen) 1 mg Q15M PRN IM DECREASED GLUCOSE; Start 12/02/16 at 23:00 Glucose (Glutose) 15 gm Q15M PRN BUCCAL DECREASED GLUCOSE; Start 12/02/16 at 23 :00 Gabapentin (Neurontin) 800 mg TID PO Last administered on 12/08/16 20:33; Admin Dose 800 MG; Start 12/03/16 at 09:00; Status Future Hold Meclizine HCl (Antivert) 25 mg TID PRN PO dizziness Last administered on 09:37; Admin Dose 25 MG; Start 12/02/16 at 23:00 Terazosin HCl (Hytrin) 5 mg HS PO Last administered on 12/07/16 20:28; Admin Dose 5 MG; Start 12/03/16 at 21:00; Status Future Hold Acetaminophen/ Hydrocodone Bitart ([place] (5/325)) 1 tab Q6H PRN PO PAIN LEVEL 4 -7 Last administered on 12/23/16 22:14; Admin Dose 1 TAB; Start 12/02/16 at 23: 30 Acetaminophen (Tylenol Tab) 650 mg Q6H PRN PO PAIN AND OR ELEVATED TEMP Last administered on 01/07/17 01:27; Admin Dose 650 MG; Start 12/02/16 at 23:30 Docusate Sodium (Colace) 100 mg BID PO Last administered on 12/08/16 20:32; Admin Dose 100 MG; Start 12/03/16 at 09:00; Status Future Hold Zolpidem Tartrate (Ambien) 5 mg HS PRN PO INSOMNIA Last administered on 20:53; Admin Dose 5 MG; Start 12/02/16 at 23:30 Benazepril HCl (Lotensin) 10 mg DAILY PO Last administered on 12/07/16 08:26; Admin Dose 10 MG; Start 12/04/16 at 09:00; Status Future Hold Morphine Sulfate (morphine) 2 mg Q2H PRN IV PAIN Last administered on 12/20/16 03:22; Admin Dose 2 MG; Start 12/09/16 at 09:30 Acetaminophen (Tylenol Supp) 650 mg Q6H PRN [place] ELEVATED TEMPERATURE Last administered on 12/09/16 17:53; Admin Dose 650 MG; Start 12/09/16 at 17:00 Metoprolol Tartrate (Lopressor) 5 mg Q4H PRN IV HR>100 Last administered on 22:23; Admin Dose 5 MG; Start 12/09/16 at 17:48 Hydralazine HCl (Apresoline) 10 mg Q6H PRN IV SBP>150mm hg Last administered on 12/19/16 08:50; Admin Dose 10 MG; Start 12/11/16 at 10:30 Morphine Sulfate (morphine) 2 mg Q2H PRN IV PAIN LEVEL 4-7; Start 12/13/16 at 10 :00 Pantoprazole (Protonix Tab) 40 mg DAILY@06 PO Last administered on 01/09/17 05 :40; Admin Dose 40 MG; Start 12/23/16 at 06:00 Insulin Glargine (Lantus) 22 unit DAILY@20 SC Last administered on 01/08/17 21 :16; Admin Dose 22 UNIT; Start 12/25/16 at 20:00 Diagnostic Test (Pha) (Accu-Chek) 1 ea 02 XX Last administered on 01/09/17 02: 43; Admin Dose 1 EA; Start 12/30/16 at 02:00 Aspirin (Halfprin) 81 mg DAILY PO Last administered on 01/09/17 08:51; Admin Dose 81 MG; Start 12/31/16 at 09:00 Apixaban (Eliquis) 2.5 mg BID PO Last administered on 01/09/17 08:51; Admin Dose 2.5 MG; Start 12/30/16 at 21:00 Amiodarone HCl (Cordarone) 200 mg DAILY PO Last administered on 01/09/17 08:52 ; Admin Dose 200 MG; Start 12/31/16 at 09:00 Collagenase 1 applic 1 applic DAILY TOP Last administered on 01/09/17 08:52; Admin Dose 1 APPLIC; Start 01/04/17 at 09:00 Propofol 100 ml @ 2.544 mls/ hr Q12H IV Last administered on 01/08/17 04:00; Admin Dose 2.544 MLS/HR; Start 01/08/17 at 04:00 Sodium Chloride 1,000 ml @ 100 mls/hr Q10H IV Last administered on 01/09/17 02:45; Admin Dose 100 MLS/HR; Start 01/08/17 at 04:00 Meropenem 100 ml @ 200 mls/hr Q24H IVPB Last administered on 01/08/17 20:45; Admin Dose 200 MLS/HR; Start 01/08/17 at 21:00 Linezolid (Zyvox 600mg/D5W (Pmx)) 300 ml @ 300 mls/hr Q12 IVPB Last administered on 01/09/17 08:51; Admin Dose 300 MLS/HR; Start 01/08/17 at 18:00 Metoprolol Tartrate (Lopressor) 25 mg Q6 PO Last administered on 01/08/17 18: 18; Admin Dose 25 MG; Start 01/08/17 at 18:00 ELTON MRAMOLEJO January 09, 2017 11:54
--- NOTE | 2017-01-09 12:03 | CONS ---
Date/Time of Note Date/Time of Note DATE: 01/09/17 TIME: 11:57 Consult Date/Type/Reason Admit Date/Time Dec 02, 2016 at 21:01 Initial Consult Date 12/08/16 Type of Consultation: Pulm/CCM Ordering Provider: VIET PARKER MD Subjective Unresponsive off sedation on mechanical ventilation. Objective Vital Signs Date Time Temp Pulse Resp B/P Pulse Ox O2 Delivery O2 Flow Rate FiO2 01/09/17 10:39 97 01/09/17 10:00 22 116/56 100 Mechanical Ventilator 01/09/17 09:35 40 01/09/17 08:00 97.8 01/07/17 14:56 2.0 Intake and Output 01/08/17 01/08/17 01/09/17 15:00 23:00 07:00 Intake Total 1105 ml 700 ml 800 ml Output Total 4300 ml 0 ml 0 ml Balance -3195 ml 700 ml 800 ml Exam HEENT: Neck supple; ++ JVD; no LAD; ET tube in place CVS: Irreg irreg, S1 and S2 CHEST: Bilateral rales ABD: Soft, NT, + BS EXT: No c/c + edema Results/Medications Result Diagram: 01/09/17 0510 01/09/17 0510 Results 24 hrs Laboratory Tests Test 01/08/17 17:21 01/08/17 18:20 01/08/17 20:44 01/09/17 01:21 Bedside Glucose 190 210 Troponin I 0.374 *H 0.323 *H B-Type Natriuretic Peptide 37174 H Test 01/09/17 02:43 01/09/17 05:00 01/09/17 05:10 01/09/17 08:25 Bedside Glucose 169 197 Blood Gas Specimen Source Blood arterial Arterial Blood Date Drawn 01/09/2017 5:10:58 AM Arterial Blood pH (Temp corrected) 7.434 Arterial Blood pCO2 (Temp correct) 34.7 L Arterial Blood pO2 (Temp corrected) 105.7 H Arterial Blood HCO3 22.7 Arterial Blood Base Excess -1.3 Arterial Blood Oxygen Saturation 97.6 Derek Test ACCEPTAB Arterial Blood Gas Puncture Site Right Radial Arterial Blood Carboxyhemoglobin 0.7 Arterial Blood Methemoglobin 0.3 Blood Gas A-a O2 Differential 139.6 H Oxyhemoglobin Percent 96.6 Total Hemoglobin 8.0 L Blood Gas Temperature 37.0 Blood Gas Respiration Rate 16.0 Blood Gas Actual Respiration Rate 19 Blood Gas Modality VENT - AC FiO2 40.0 Blood Gas Tidal Volume 500.0 Blood Gas Low PEEP Setting 5.0 Blood Gas Notified Whom UP Blood Gas Notified Time 01/09/2017 5:30:44 AM White Blood Count 8.4 Red Blood Count 2.69 L Hemoglobin 8.3 L Hematocrit 26.0 L Mean Corpuscular Volume 96.7 Mean Corpuscular Hemoglobin 30.9 Mean Corpuscular Hemoglobin Concent 31.9 L Red Cell Distribution Width 13.7 Platelet Count 206 Mean Platelet Volume 10.4 Neutrophils % 78.4 H Lymphocytes % 8.9 L Monocytes % 11.5 H Eosinophils % 0.4 Basophils % 0.2 Nucleated Red Blood Cells % 0.0 Neutrophils # 6.6 Lymphocytes # 0.8 Monocytes # 1.0 H Eosinophils # 0.0 Basophils # 0.0 Nucleated Red Blood Cells # 0.0 Sodium Level 144 Potassium Level 3.6 Chloride Level 113 H Carbon Dioxide Level 25 Anion Gap 10 # Blood Urea Nitrogen 27 H Creatinine 3.14 #H Glucose Level 176 # Lactic Acid Level 0.9 Calcium Level 8.7 Troponin I 0.254 *H Medications Current Medications Ondansetron HCl (Zofran Inj) 4 mg Q6H PRN IV NAUSEA AND/OR VOMITING Last administered on 12/13/16 01:13; Admin Dose 4 MG; Start 12/02/16 at 22:30 Miscellaneous Information 1 ea NOTE XX ; Start 12/02/16 at 23:00 Glucose (Glutose) 15 gm Q15M PRN PO DECREASED GLUCOSE; Start 12/02/16 at 23:00 Glucose (Glutose) 22.5 gm Q15M PRN PO DECREASED GLUCOSE; Start 12/02/16 at 23: 00 Dextrose (D50w Syringe) 25 ml Q15M PRN IV DECREASED GLUCOSE Last administered on 12/10/16 05:52; Admin Dose 25 ML; Start 12/02/16 at 23:00 Dextrose (D50w Syringe) 50 ml Q15M PRN IV DECREASED GLUCOSE; Start 12/02/16 at 23:00 Glucagon (Glucagen) 1 mg Q15M PRN IM DECREASED GLUCOSE; Start 12/02/16 at 23:00 Glucose (Glutose) 15 gm Q15M PRN BUCCAL DECREASED GLUCOSE; Start 12/02/16 at 23 :00 Gabapentin (Neurontin) 800 mg TID PO Last administered on 12/08/16 20:33; Admin Dose 800 MG; Start 12/03/16 at 09:00; Status Future Hold Meclizine HCl (Antivert) 25 mg TID PRN PO dizziness Last administered on 09:37; Admin Dose 25 MG; Start 12/02/16 at 23:00 Terazosin HCl (Hytrin) 5 mg HS PO Last administered on 12/07/16 20:28; Admin Dose 5 MG; Start 12/03/16 at 21:00; Status Future Hold Acetaminophen/ Hydrocodone Bitart ([place] (5/325)) 1 tab Q6H PRN PO PAIN LEVEL 4 -7 Last administered on 12/23/16 22:14; Admin Dose 1 TAB; Start 12/02/16 at 23: 30 Acetaminophen (Tylenol Tab) 650 mg Q6H PRN PO PAIN AND OR ELEVATED TEMP Last administered on 01/07/17 01:27; Admin Dose 650 MG; Start 12/02/16 at 23:30 Docusate Sodium (Colace) 100 mg BID PO Last administered on 12/08/16 20:32; Admin Dose 100 MG; Start 12/03/16 at 09:00; Status Future Hold Zolpidem Tartrate (Ambien) 5 mg HS PRN PO INSOMNIA Last administered on 20:53; Admin Dose 5 MG; Start 12/02/16 at 23:30 Benazepril HCl (Lotensin) 10 mg DAILY PO Last administered on 12/07/16 08:26; Admin Dose 10 MG; Start 12/04/16 at 09:00; Status Future Hold Morphine Sulfate (morphine) 2 mg Q2H PRN IV PAIN Last administered on 12/20/16 03:22; Admin Dose 2 MG; Start 12/09/16 at 09:30 Acetaminophen (Tylenol Supp) 650 mg Q6H PRN [place] ELEVATED TEMPERATURE Last administered on 12/09/16 17:53; Admin Dose 650 MG; Start 12/09/16 at 17:00 Metoprolol Tartrate (Lopressor) 5 mg Q4H PRN IV HR>100 Last administered on 22:23; Admin Dose 5 MG; Start 12/09/16 at 17:48 Hydralazine HCl (Apresoline) 10 mg Q6H PRN IV SBP>150mm hg Last administered on 12/19/16 08:50; Admin Dose 10 MG; Start 12/11/16 at 10:30 Morphine Sulfate (morphine) 2 mg Q2H PRN IV PAIN LEVEL 4-7; Start 12/13/16 at 10 :00 Pantoprazole (Protonix Tab) 40 mg DAILY@06 PO Last administered on 01/09/17 05 :40; Admin Dose 40 MG; Start 12/23/16 at 06:00 Insulin Glargine (Lantus) 22 unit DAILY@20 SC Last administered on 01/08/17 21 :16; Admin Dose 22 UNIT; Start 12/25/16 at 20:00 Diagnostic Test (Pha) (Accu-Chek) 1 ea 02 XX Last administered on 01/09/17 02: 43; Admin Dose 1 EA; Start 12/30/16 at 02:00 Aspirin (Halfprin) 81 mg DAILY PO Last administered on 01/09/17 08:51; Admin Dose 81 MG; Start 12/31/16 at 09:00 Apixaban (Eliquis) 2.5 mg BID PO Last administered on 01/09/17 08:51; Admin Dose 2.5 MG; Start 12/30/16 at 21:00 Amiodarone HCl (Cordarone) 200 mg DAILY PO Last administered on 01/09/17 08:52 ; Admin Dose 200 MG; Start 12/31/16 at 09:00 Collagenase 1 applic 1 applic DAILY TOP Last administered on 01/09/17 08:52; Admin Dose 1 APPLIC; Start 01/04/17 at 09:00 Propofol 100 ml @ 2.544 mls/ hr Q12H IV Last administered on 01/08/17 04:00; Admin Dose 2.544 MLS/HR; Start 01/08/17 at 04:00 Sodium Chloride 1,000 ml @ 100 mls/hr Q10H IV Last administered on 01/09/17 02:45; Admin Dose 100 MLS/HR; Start 01/08/17 at 04:00 Meropenem 100 ml @ 200 mls/hr Q24H IVPB Last administered on 01/08/17 20:45; Admin Dose 200 MLS/HR; Start 01/08/17 at 21:00 Linezolid (Zyvox 600mg/D5W (Pmx)) 300 ml @ 300 mls/hr Q12 IVPB Last administered on 01/09/17 08:51; Admin Dose 300 MLS/HR; Start 01/08/17 at 18:00 Metoprolol Tartrate (Lopressor) 25 mg Q6 PO Last administered on 01/08/17 18: 18; Admin Dose 25 MG; Start 01/08/17 at 18:00 Assessment/Plan Additional Assessment/Plan IMP: 1. Cardiopulmonary Arrest: Likely a respiratory event leading to the asystolic event. 2. CHF/Volume overload 3. Respiratory Failure/Vent 4. 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 Fungemia 6. ESRD on HD 7. Anemia RECS: 1. Vent support 2. Abx per ID 3. HD/UF 4. Keep off sedatives 5. Follow neuro status closely, although does not look very promising 6. Case discussed with family at length 7. D/C IVFs 35 min cc time JACOB SANTIZO MD January 09, 2017 12:03
--- NOTE | 2017-01-09 13:37 | RADRPT ---
PROCEDURE: XR Chest. CLINICAL INDICATION: Respiratory distress TECHNIQUE: Single frontal chest x-ray. COMPARISON: 01/08/2017 FINDINGS: Severe dense opacification is seen throughout the lungs, worsening when compared to the prior study. Associated layering pleural effusions are likely present as well. The heart size and mediastinal silhouette are stable. ET tube, NG tube, right central line are all stable. There is no pneumothor ax. No other acute changes are seen. IMPRESSION: 1. Worsening dense opacification within the lungs bilaterally. 2. Otherwise, stable chest. RPTAT: HMJB .Chang Taylor MD, Date Time Electronically viewed and signed by .Chnag Taylor MD, on 01/09/2017 13:37 .B/
--- NOTE | 2017-01-09 13:55 | CONS ---
Date/Time of Note Date/Time of Note DATE: 01/09/17 TIME: 13:54 Assessment/Plan Assessment/Plan Additional Assessment/Plan Respiratory failure on Ventilator PAF in Sinus Tachycardia CHF Severe Aortic Stenosis Osteomyelitis Cellulitis left foot Diabetic foot Diabetes Tobacco abuse He went into respiratory distress and had to be intubated and went into PEA arrest and CPR was initiated given epinephrine, atropine and calcium chloride Continue Vent support Continue aggressive Pulmonary Toiletry Avoid Diuretics Avoid Volume Overload Increased metoprolol Continue Amiodarone Continue Eliquis Continue Insulin Continue antibiotics HD as scheduled Consultation Date/Type/Reason Admit Date/Time Dec 02, 2016 at 21:01 Constitutional: requiring O2 Eyes: no complaints ENT: no complaints Respiratory: no complaints Cardiovascular: no complaints Gastrointestinal: no complaints Genitourinary: no complaints Musculoskeletal: bone/joint pain Skin: other Neurologic: no complaints Endocrine: no complaints Lymphatic: no complaints Psychological: nl mood/affect, no complaints Immunologic: no complaints Social History Smoking Status: Former smoker Exam/Review of Systems Vital Signs Vitals Vital Signs Date Time Temp Pulse Resp B/P Pulse Ox O2 Delivery O2 Flow Rate FiO2 01/09/17 12:16 102 23 99 40 01/09/17 10:00 116/56 Mechanical Ventilator 01/09/17 08:00 97.8 01/07/17 14:56 2.0 Intake and Output 01/08/17 01/08/17 01/09/17 15:00 23:00 07:00 Intake Total 1105 ml 700 ml 800 ml Output Total 4300 ml 0 ml 0 ml Balance -3195 ml 700 ml 800 ml Exam opens eyes to commands HEENT Intubated CVS Tachycardic, with Systolic murmur heard at LSB RS Mechanical Breath sounds heard bilaterally Abd BS sounds heard Ext No pedal edema Results Result Diagram: 01/09/17 0510 01/09/17 0510 Results 24 hrs Laboratory Tests Test 01/08/17 17:21 01/08/17 18:20 01/08/17 20:44 01/09/17 01:21 Bedside Glucose 190 210 Troponin I 0.374 *H 0.323 *H B-Type Natriuretic Peptide 21572 H Test 01/09/17 02:43 01/09/17 05:00 01/09/17 05:10 01/09/17 08:25 Bedside Glucose 169 197 Blood Gas Specimen Source Blood arterial Arterial Blood Date Drawn 01/09/2017 5:10:58 AM Arterial Blood pH (Temp corrected) 7.434 Arterial Blood pCO2 (Temp correct) 34.7 L Arterial Blood pO2 (Temp corrected) 105.7 H Arterial Blood HCO3 22.7 Arterial Blood Base Excess -1.3 Arterial Blood Oxygen Saturation 97.6 Derek Test ACCEPTAB Arterial Blood Gas Puncture Site Right Radial Arterial Blood Carboxyhemoglobin 0.7 Arterial Blood Methemoglobin 0.3 Blood Gas A-a O2 Differential 139.6 H Oxyhemoglobin Percent 96.6 Total Hemoglobin 8.0 L Blood Gas Temperature 37.0 Blood Gas Respiration Rate 16.0 Blood Gas Actual Respiration Rate 19 Blood Gas Modality VENT - AC FiO2 40.0 Blood Gas Tidal Volume 500.0 Blood Gas Low PEEP Setting 5.0 Blood Gas Notified Whom UP Blood Gas Notified Time 01/09/2017 5:30:44 AM White Blood Count 8.4 Red Blood Count 2.69 L Hemoglobin 8.3 L Hematocrit 26.0 L Mean Corpuscular Volume 96.7 Mean Corpuscular Hemoglobin 30.9 Mean Corpuscular Hemoglobin Concent 31.9 L Red Cell Distribution Width 13.7 Platelet Count 206 Mean Platelet Volume 10.4 Neutrophils % 78.4 H Lymphocytes % 8.9 L Monocytes % 11.5 H Eosinophils % 0.4 Basophils % 0.2 Nucleated Red Blood Cells % 0.0 Neutrophils # 6.6 Lymphocytes # 0.8 Monocytes # 1.0 H Eosinophils # 0.0 Basophils # 0.0 Nucleated Red Blood Cells # 0.0 Sodium Level 144 Potassium Level 3.6 Chloride Level 113 H Carbon Dioxide Level 25 Anion Gap 10 # Blood Urea Nitrogen 27 H Creatinine 3.14 #H Glucose Level 176 # Lactic Acid Level 0.9 Calcium Level 8.7 Troponin I 0.254 *H Test 01/09/17 11:15 Troponin I 0.140 *H Medications Medications Current Medications Ondansetron HCl (Zofran Inj) 4 mg Q6H PRN IV NAUSEA AND/OR VOMITING Last administered on 12/13/16t 01:13; Admin Dose 4 MG; Start 12/02/16 at 22:30 Miscellaneous Information 1 ea NOTE XX ; Start 12/02/16 at 23:00 Glucose (Glutose) 15 gm Q15M PRN PO DECREASED GLUCOSE; Start 12/02/16 at 23:00 Glucose (Glutose) 22.5 gm Q15M PRN PO DECREASED GLUCOSE; Start 12/02/16 at 23: 00 Dextrose (D50w Syringe) 25 ml Q15M PRN IV DECREASED GLUCOSE Last administered on 12/10/16 05:52; Admin Dose 25 ML; Start 12/02/16 at 23:00 Dextrose (D50w Syringe) 50 ml Q15M PRN IV DECREASED GLUCOSE; Start 12/02/16 at 23:00 Glucagon (Glucagen) 1 mg Q15M PRN IM DECREASED GLUCOSE; Start 12/02/16 at 23:00 Glucose (Glutose) 15 gm Q15M PRN BUCCAL DECREASED GLUCOSE; Start 12/02/16 at 23 :00 Gabapentin (Neurontin) 800 mg TID PO Last administered on 12/08/16 20:33; Admin Dose 800 MG; Start 12/03/16 at 09:00; Status Future Hold Meclizine HCl (Antivert) 25 mg TID PRN PO dizziness Last administered on 09:37; Admin Dose 25 MG; Start 12/02/16 at 23:00 Terazosin HCl (Hytrin) 5 mg HS PO Last administered on 12/07/16 20:28; Admin Dose 5 MG; Start 12/03/16 at 21:00; Status Future Hold Acetaminophen/ Hydrocodone Bitart ([place] (5/325)) 1 tab Q6H PRN PO PAIN LEVEL 4 -7 Last administered on 12/23/16 22:14; Admin Dose 1 TAB; Start 12/02/16 at 23: 30 Acetaminophen (Tylenol Tab) 650 mg Q6H PRN PO PAIN AND [place] ELEVATED TEMP Last administered on 01/07/17 01:27; Admin Dose 650 MG; Start 12/02/16 at 23:30 Docusate Sodium (Colace) 100 mg BID PO Last administered on 12/08/16 20:32; Admin Dose 100 MG; Start 12/03/16 at 09:00; Status Future Hold Zolpidem Tartrate (Ambien) 5 mg HS PRN PO INSOMNIA Last administered on 20:53; Admin Dose 5 MG; Start 12/02/16 at 23:30 Benazepril HCl (Lotensin) 10 mg DAILY PO Last administered on 12/07/16 08:26; Admin Dose 10 MG; Start 12/04/16 at 09:00; Status Future Hold Morphine Sulfate (morphine) 2 mg Q2H PRN IV PAIN Last administered on 12/20/16 03:22; Admin Dose 2 MG; Start 12/09/16 at 09:30 Acetaminophen (Tylenol Supp) 650 mg Q6H PRN [place] ELEVATED TEMPERATURE Last administered on 12/09/16 17:53; Admin Dose 650 MG; Start 12/09/16 at 17:00 Metoprolol Tartrate (Lopressor) 5 mg Q4H PRN IV HR>100 Last administered on 22:23; Admin Dose 5 MG; Start 12/09/16 at 17:48 Hydralazine HCl (Apresoline) 10 mg Q6H PRN IV SBP>150mm hg Last administered on 12/19/16 08:50; Admin Dose 10 MG; Start 12/11/16 at 10:30 Morphine Sulfate (morphine) 2 mg Q2H PRN IV PAIN LEVEL 4-7; Start 12/13/16 at 10 :00 Pantoprazole (Protonix Tab) 40 mg DAILY@06 PO Last administered on 01/09/17 05 :40; Admin Dose 40 MG; Start 12/23/16 at 06:00 Insulin Glargine (Lantus) 22 unit DAILY@20 SC Last administered on 01/08/17 21 :16; Admin Dose 22 UNIT; Start 12/25/16 at 20:00 Diagnostic Test (Pha) (Accu-Chek) 1 ea 02 XX Last administered on 01/09/17 02: 43; Admin Dose 1 EA; Start 12/30/16 at 02:00 Aspirin (Halfprin) 81 mg DAILY PO Last administered on 01/09/17 08:51; Admin Dose 81 MG; Start 12/31/16 at 09:00 Apixaban (Eliquis) 2.5 mg BID PO Last administered on 01/09/17 08:51; Admin Dose 2.5 MG; Start 12/30/16 at 21:00 Amiodarone HCl (Cordarone) 200 mg DAILY PO Last administered on 01/09/17 08:52 ; Admin Dose 200 MG; Start 12/31/16 at 09:00 Collagenase 1 applic 1 applic DAILY TOP Last administered on 01/09/17 08:52; Admin Dose 1 APPLIC; Start 01/04/17 at 09:00 Propofol 100 ml @ 2.544 mls/ hr Q12H IV Last administered on 01/08/17 04:00; Admin Dose 2.544 MLS/HR; Start 01/08/17 at 04:00 Meropenem 100 ml @ 200 mls/hr Q24H IVPB Last administered on 01/08/17 20:45; Admin Dose 200 MLS/HR; Start 01/08/17 at 21:00 Linezolid (Zyvox 600mg/D5W (Pmx)) 300 ml @ 300 mls/hr Q12 IVPB Last administered on 01/09/17 08:51; Admin Dose 300 MLS/HR; Start 01/08/17 at 18:00 Metoprolol Tartrate (Lopressor) 25 mg Q6 PO Last administered on 01/08/17 18: 18; Admin Dose 25 MG; Start 01/08/17 at 18:00 Insulin Aspart (Novolog Insulin Pen) NOVOLOG *MODERATE* ALGORI... Q4 SC ; Start 01/09/17 at 17:00; Status UNV Insulin Glargine (Lantus) 22 unit DAILY@20 SC ; Start 01/09/17 at 20:00; Status UNV Miscellaneous Information (* Miscellaneous Pharmacy Order) HYPOGLYCEMIA PROTOCOL w... ONCE ONCE XX ; Start 01/09/17 at 14:00; Stop 01/09/17 at 14:01 Miscellaneous Information (* Miscellaneous Pharmacy Order) Discontinue Glyburide , Glipizide,... ONCE ONCE XX ; Start 01/09/17 at 14:00; Stop 01/09/17 at 14:01 ; Status UNV Miscellaneous Information (* Miscellaneous Pharmacy Order) Discontinue all previ... ONCE ONCE XX ; Start 01/09/17 at 14:00; Stop 01/09/17 at 14:01; Status UNV Diagnostic Test (Pha) (Accu-Chek) 1 XX ; Start 01/10/17 at 02:00; Status UNV VIRI ROY M.D. January 09, 2017 13:55
--- NOTE | 2017-01-09 14:11 | RADRPT ---
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 Physician: JUAN JOSE LYONS Quality: Technically Difficult Study Procedures: Transthoracic echocardiogram examination, apical and subcostal images only. Indications: Cardiac Arrest. 2D/M Mode Doppler Measurement Value Normal Range Measurement Value Normal Range LA Dimen 2D 3.9 2.3 - 4.0 cm VIRGINIE Vmax 0.7 cm2 VIRGINIE VTI 0.7 cm2 AV Mean Vlad 2.4 m/sec AV Mean PG 25.8 mmHg AV Peak Vlad 3.3 m/sec AV Peak PG 42.9 mmHg AV VTI 64.4 cm LVOT Mean Vlad 0.5 m/sec LVOT Mean PG 1.1 mmHg LVOT Peak Vlad 0.7 m/sec LVOT Peak PG 2.2 mmHg LVOT VTI 11.7 cm Findings Left Ventricle: Normal left ventricular cavity size. Severe left ventricular systolic dysfunction, although not all wall segments are seen clearly. Mild concentric left ventricular hypertrophy. The left ventricular ejection fraction is visually estimated at <30 %. Right Ventricle: Normal right ventricular size. Normal right ventricular systolic function. Left Atrium: The left atrium is normal in size and appearance. Right Atrium: The right atrium is normal in size and appearance. Atrial Septum: Normal atrial septum. Mitral Valve: Severe mitral annular calcification. No mitral valve regurgitation is seen. The mitral valve beats are fused, tachy rate, so it is difficult to assess for mitral stenosis. Aortic Valve: Aortic cusps appear severely calcified, imaged best from subcostal limages. Tricuspid Valve: Normal appearance of the tricuspid valve. No evidence of tricuspid regurgitation. Pulmonic Valve: The pulmonic valve is not well visualized. Pericardium: Normal pericardium with no significant pericardial effusion. Aorta: The aorta is not well visualized. IVC: Inferior vena cava without respiratory collapse, however, patient on ventilator. Pulmonary Artery: Pulmonary artery is not well visualized. Conclusions 1.Normal left ventricular cavity size. Severe left ventricular systolic dysfunction, although not all wall segments are seen clearly. Mild concentric left ventricular hypertrophy. The left ventricular ejection fraction is visually estimated at <30 %. 2.The right ventricle is normal in size and appearance. 3.Severe mitral annular calcification. No mitral valve regurgitation is seen. The mitral valve beats are fused, tachy rate, so it is difficult to assess for mitral stenosis. 4.Aortic cusps appear severely calcified, imaged best from subcostal limages. 5.Normal appearance of the tricuspid valve. No evidence of tricuspid regurgitation. 6.Normal pericardium with no significant pericardial effusion. Electronically Signed By: Juan Jose Lyons 09-Jan-2017 14:10:17 -[id number] Patient Name: SHAUN MOULTON Study Date: 09-Jan-2017 [id number]
[2017-01-09] MEDS ORDERED: Discontinue Glyburide, Glipizide, and/or Glimepiride prior to starting Insulin XX ONE (14:30)
[2017-01-09] MEDS ORDERED: HYPOGLYCEMIA PROTOCOL when Glucose is <70 mg/dL or symptomatic <90 mg/dL. XX ONE (14:30)
[2017-01-09] MEDS: METOPROLOL 100 MG TAB PO SCH (14:31)
[2017-01-09] MEDS ORDERED: INSULIN GLARGINE [LANtus] 3 ML PEN SC SCH ×2 (20:00)
[2017-01-09] MEDS: MEROPENEM 500 MG/100 ML (PMX) 100 ML IVPB SCH (21:27)
[2017-01-10] VITALS (42 sets, daily range): BP systolic 103–143; BP diastolic 49–80; PULSE 63–89; RESP 0–36
[2017-01-10] MEDS: ACETAMINOPHEN 325 MG TAB PO PRN (00:37)
[2017-01-10] MEDS: METOPROLOL 100 MG TAB PO SCH ×3 (00:48→20:19)
[2017-01-10] MEDS: INSULIN ASPART [NOVOLOG] 3 ML PEN SC SCH ×6 (01:04→20:26)
[2017-01-10] MEDS: ALBUTEROL 18 GM INHALER INH SCH ×4 (01:43→20:01)
[2017-01-10] MEDS: ACCU-CHEK XX SCH (02:00)
[2017-01-10] MEDS ORDERED: ACCU-CHEK XX SCH (02:00)
[2017-01-10] MEDS: PROPOFOL 100 ML IV SCH ×2 (04:00→15:10)
[2017-01-10] MEDS: PANTOPRAZOLE (EC) 40 MG TAB PO SCH (05:09)
[2017-01-10 06:15] LABS: ADD SCAN DIFF NO
[2017-01-10 06:19] LABS: BASOPHILS % 0.2 % (0.0-2.0); HEMATOCRIT 27.6 % (42.0-52.0); HEMOGLOBIN 8.7 g/dl (14.0-18.0); LYMPHOCYTES # 0.8 10^3/ul (0.8-2.9); LYMPHOCYTES % 9.4 % (15.0-51.0); MEAN CORPUSCULAR HEMOGLOBIN 30.6 pg (29.0-33.0); MEAN CORPUSCULAR HGB CONC 31.5 g/dl (32.0-37.0); MEAN CORPUSCULAR VOLUME 97.2 fl (82.0-101.0); MEAN PLATELET VOLUME 10.5 fl (7.4-10.4); MONOCYTE # 1.1 10^3/ul (0.3-0.9); MONOCYTES % 12.4 % (0.0-11.0); NEUTROPHIL # 6.6 10^3/ul (1.6-7.5); NEUTROPHILS % 77.4 % (39.0-77.0); PLATELET COUNT 239 10^3/UL (140-415); RED BLOOD COUNT 2.84 10^6/ul (4.70-6.10); RED CELL DISTRIBUTION WIDTH 13.4 % (11.5-14.5); WHITE BLOOD COUNT 8.6 10^3/ul (4.8-10.8)
[2017-01-10 07:04] LABS: ALBUMIN 3.3 g/dl (3.3-4.9)
[2017-01-10 07:05] LABS: POTASSIUM 3.6 mmol/L (3.5-5.1)
[2017-01-10 07:07] LABS: ALBUMIN/GLOBULIN RATIO 0.84; BILIRUBIN,INDIRECT 0.3 mg/dl (0-1.1); BILIRUBIN,TOTAL 0.3 mg/dl (0.2-1.3); CREATININE 3.34 mg/dl (0.61-1.24); TOTAL PROTEIN 7.2 g/dl (6.1-8.1)
[2017-01-10 07:08] LABS: CALCIUM 9.2 mg/dl (8.4-10.2)
[2017-01-10] MEDS: LINEZOLID 600 MG/D5W (PMX) 300 ML IVPB SCH ×2 (09:08→20:18)
[2017-01-10] MEDS: APIXABAN 5 MG TABLET PO SCH ×2 (09:09→20:19)
[2017-01-10] MEDS: ASPIRIN (EC) 81 MG TAB PO SCH (09:09)
[2017-01-10] MEDS: COLLAGENASE 30 GM TUBE TOP SCH (09:10)
[2017-01-10] MEDS: AMIODARONE 200 MG TAB PO SCH (09:10)
--- NOTE | 2017-01-10 09:41 | PN ---
Date/Time of Note Date/Time of Note DATE: 01/10/17 TIME: 09:40 Assessment/Plan VTE Prophylaxis VTE Prophylaxis Intervention: other Lines/Catheters IV Catheter Type (from [facility]): PERMACATH Urinary Cath still in place: No Assessment/Plan Chief Complaint/Hosp Course - s/p code blue, is on ventilator, monitor closely - Acute respiratory failure secondary to pulmonary edema, resolved. Dr. Alvarez is following from pulmonology standpoint. - Bilateral pleural effusion, this post right sided thoracentesis with removal of 900 cc of fluid. - Acute renal failure, Dr. Remy is following in nephrology consultation. Continue hemodialysis per nephrology. Pending permacath placement by vascular surgery. - Acute to subacute right occipital lobe ischemic infarct per CT, Dr Morris is following in neurology consultation. - Paroxysmal atrial fibrillation and positive troponin. Dr. Cobian is following and cardiology consultation. Status post Lexiscan on 12/24. - Fungemia, om Caspofungin. Dr. Pascual is following in infection disease consultation. - Diabetic foot ulcer of the left foot, Dr Lin is following in podiatry consultation. - Cellulitis of left foot, 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 and left fourth proximal phalanx per bone scan. Continue antibiotics per ID. - Aortic stenosis - Diastolic dysfunction congestive heart failure with preserved ejection fraction of 60%. - DM, Hgb A1c is 8.7, continue Lantus and pre-meal NovoLog and NovoLog per sliding scale. -Traumatic hematuria,, resolved. Dr. Grey urology consult is appreciated. Problems: Subjective 24 Hr Interval Summary Free Text/Dictation Patient is sedated and intubated Exam/Review of Systems Vital Signs Vitals Vital Signs Date Time Temp Pulse Resp B/P Pulse Ox O2 Delivery O2 Flow Rate FiO2 01/10/17 09:00 85 36 134/64 100 Mechanical Ventilator 01/10/17 08:00 40 01/10/17 08:00 98.9 01/07/17 14:56 2.0 Intake and Output 01/09/17 01/09/17 01/10/17 15:00 23:00 07:00 Intake Total 620 ml 440 ml 60 ml Output Total 3300 ml 20 ml 0 ml Balance -2680 ml 420 ml 60 ml Exam Constitutional: well developed Head: atraumatic, normocephalic Neck: supple Respiratory: diminished breath sounds Cardiovascular: regular rate and rhythm Gastrointestinal: non-tender, soft Extremities: normal pulses Results Result Diagram: 01/10/17 0525 01/10/17 0525 Results 24 hrs Laboratory Tests Test 01/09/17 11:15 01/09/17 13:37 01/09/17 14:25 01/09/17 17:50 Troponin I 0.140 *H 0.144 *H Bedside Glucose 286 H 261 H Test 01/09/17 18:28 01/09/17 20:53 01/10/17 00:47 01/10/17 01:01 Bedside Glucose 267 H 213 221 H Troponin I 0.152 *H Test 01/10/17 05:08 01/10/17 05:25 01/10/17 09:07 Bedside Glucose 180 205 White Blood Count 8.6 Red Blood Count 2.84 L Hemoglobin 8.7 L Hematocrit 27.6 L Mean Corpuscular Volume 97.2 Mean Corpuscular Hemoglobin 30.6 Mean Corpuscular Hemoglobin Concent 31.5 L Red Cell Distribution Width 13.4 Platelet Count 239 Mean Platelet Volume 10.5 H Neutrophils % 77.4 H Lymphocytes % 9.4 L Monocytes % 12.4 H Eosinophils % 0.0 Basophils % 0.2 Nucleated Red Blood Cells % 0.0 Neutrophils # 6.6 Lymphocytes # 0.8 Monocytes # 1.1 H Eosinophils # 0.0 Basophils # 0.0 Nucleated Red Blood Cells # 0.0 Sodium Level 147 H Potassium Level 3.6 Chloride Level 115 H Carbon Dioxide Level 26 Anion Gap 10 Blood Urea Nitrogen 36 H Creatinine 3.34 H Glucose Level 203 Calcium Level 9.2 Total Bilirubin 0.3 Direct Bilirubin 0.00 Indirect Bilirubin 0.3 Aspartate Amino Transf (AST/SGOT) 17 Alanine Aminotransferase (ALT/SGPT) 25 Alkaline Phosphatase 71 Total Protein 7.2 Albumin 3.3 Globulin 3.90 H Albumin/Globulin Ratio 0.84 Medications Medications Current Medications Ondansetron HCl (Zofran Inj) 4 mg Q6H PRN IV NAUSEA AND/OR VOMITING Last administered on 12/13/16t 01:13; Admin Dose 4 MG; Start 12/02/16 at 22:30 Miscellaneous Information 1 ea NOTE XX ; Start 12/02/16 at 23:00 Glucose (Glutose) 15 gm Q15M PRN PO DECREASED GLUCOSE; Start 12/02/16 at 23:00 Glucose (Glutose) 22.5 gm Q15M PRN PO DECREASED GLUCOSE; Start 12/02/16 at 23: 00 Dextrose (D50w Syringe) 25 ml Q15M PRN IV DECREASED GLUCOSE Last administered on 12/10/16 05:52; Admin Dose 25 ML; Start 12/02/16 at 23:00 Dextrose (D50w Syringe) 50 ml Q15M PRN IV DECREASED GLUCOSE; Start 12/02/16 at 23:00 Glucagon (Glucagen) 1 mg Q15M PRN IM DECREASED GLUCOSE; Start 12/02/16 at 23:00 Glucose (Glutose) 15 gm Q15M PRN BUCCAL DECREASED GLUCOSE; Start 12/02/16 at 23 :00 Gabapentin (Neurontin) 800 mg TID PO Last administered on 12/08/16 20:33; Admin Dose 800 MG; Start 12/03/16 at 09:00; Status Future Hold Meclizine HCl (Antivert) 25 mg TID PRN PO dizziness Last administered on 09:37; Admin Dose 25 MG; Start 12/02/16 at 23:00 Terazosin HCl (Hytrin) 5 mg HS PO Last administered on 12/07/16 20:28; Admin Dose 5 MG; Start 12/03/16 at 21:00; Status Future Hold Acetaminophen/ Hydrocodone Bitart ([place] (5/325)) 1 tab Q6H PRN PO PAIN LEVEL 4 -7 Last administered on 12/23/16 22:14; Admin Dose 1 TAB; Start 12/02/16 at 23: 30 Acetaminophen (Tylenol Tab) 650 mg Q6H PRN PO PAIN AND OR ELEVATED TEMP Last administered on 01/10/17 00:37; Admin Dose 650 MG; Start 12/02/16 at 23:30 Docusate Sodium (Colace) 100 mg BID PO Last administered on 12/08/16 20:32; Admin Dose 100 MG; Start 12/03/16 at 09:00; Status Future Hold Zolpidem Tartrate (Ambien) 5 mg HS PRN PO INSOMNIA Last administered on 20:53; Admin Dose 5 MG; Start 12/02/16 at 23:30 Benazepril HCl (Lotensin) 10 mg DAILY PO Last administered on 12/07/16 08:26; Admin Dose 10 MG; Start 12/04/16 at 09:00; Status Future Hold Morphine Sulfate (morphine) 2 mg Q2H PRN IV PAIN Last administered on 12/20/16 03:22; Admin Dose 2 MG; Start 12/09/16 at 09:30 Acetaminophen (Tylenol Supp) 650 mg Q6H PRN [place] ELEVATED TEMPERATURE Last administered on 12/09/16 17:53; Admin Dose 650 MG; Start 12/09/16 at 17:00 Metoprolol Tartrate (Lopressor) 5 mg Q4H PRN IV HR>100 Last administered on 22:23; Admin Dose 5 MG; Start 12/09/16 at 17:48 Hydralazine HCl (Apresoline) 10 mg Q6H PRN IV SBP>150mm hg Last administered on 12/19/16 08:50; Admin Dose 10 MG; Start 12/11/16 at 10:30 Morphine Sulfate (morphine) 2 mg Q2H PRN IV PAIN LEVEL 4-7; Start 12/13/16 at 10 :00 Pantoprazole (Protonix Tab) 40 mg DAILY@06 PO Last administered on 01/10/17 05 :09; Admin Dose 40 MG; Start 12/23/16 at 06:00 Aspirin (Halfprin) 81 mg DAILY PO Last administered on 01/10/17 09:09; Admin Dose 81 MG; Start 12/31/16 at 09:00 Apixaban (Eliquis) 2.5 mg BID PO Last administered on 01/10/17 09:09; Admin Dose 2.5 MG; Start 12/30/16 at 21:00 Amiodarone HCl (Cordarone) 200 mg DAILY PO Last administered on 01/10/17 09:10 ; Admin Dose 200 MG; Start 12/31/16 at 09:00 Collagenase 1 applic 1 applic DAILY TOP Last administered on 01/10/17 09:10; Admin Dose 1 APPLIC; Start 01/04/17 at 09:00 Propofol 100 ml @ 2.544 mls/ hr Q12H IV Last administered on 01/08/17 04:00; Admin Dose 2.544 MLS/HR; Start 01/08/17 at 04:00 Meropenem 100 ml @ 200 mls/hr Q24H IVPB Last administered on 01/09/17 21:27; Admin Dose 200 MLS/HR; Start 01/08/17 at 21:00 Linezolid (Zyvox 600mg/D5W (Pmx)) 300 ml @ 300 mls/hr Q12 IVPB Last administered on 01/10/17 09:08; Admin Dose 300 MLS/HR; Start 01/08/17 at 18:00 Insulin Aspart (Novolog Insulin Pen) NOVOLOG *MODERATE* ALGORI... Q4 SC Last administered on 01/10/17 09:15; Admin Dose 4 UNIT; Start 01/09/17 at 14:15 Insulin Glargine (Lantus) 22 unit DAILY@20 SC Last administered on 01/09/17 20 :55; Admin Dose 22 UNIT; Start 01/09/17 at 20:00 Diagnostic Test (Pha) (Accu-Chek) 1 ea 02 XX ; Start 01/10/17 at 02:00 Metoprolol Tartrate (Lopressor) 100 mg BID PO Last administered on 01/10/17 09 :09; Admin Dose 100 MG; Start 01/09/17 at 14:00 ELTON MARMOLEJO January 10, 2017 09:41
--- NOTE | 2017-01-10 10:56 | CONS ---
Date/Time of Note Date/Time of Note DATE: 01/10/17 TIME: 10:50 Consult Date/Type/Reason Admit Date/Time Dec 02, 2016 at 21:01 Initial Consult Date 12/08/16 Type of Consultation: Pulm/CCM Ordering Provider: VIET PARKER MD Subjective Patient is Unresponsive- CT brain per primary- fu. BP Stable.dw staff Objective Vital Signs Date Time Temp Pulse Resp B/P Pulse Ox O2 Delivery O2 Flow Rate FiO2 01/10/17 09:55 72 17 100 40 01/10/17 09:00 134/64 Mechanical Ventilator 01/10/17 08:00 98.9 01/07/17 14:56 2.0 Intake and Output 01/09/17 01/09/17 01/10/17 15:00 23:00 07:00 Intake Total 620 ml 440 ml 60 ml Output Total 3300 ml 20 ml 0 ml Balance -2680 ml 420 ml 60 ml Exam Constitutional: unresponsive Neck: supple Respiratory: crackles/rales bilaterally, remains intubated Cardiovascular: nl pulses, regular rate and rhythm Gastrointestinal: non-tender, soft Musculoskeletal: (L 1st toe: plantar aspect has eschar, dry non-TTP) Extremities: No edema Neurological: unresponsive Skin: rash or lesions (L 1st toe: plantar aspect has eschar, dry non-TTP)- dressing DDI Results/Medications Result Diagram: 01/10/17 0525 01/10/17 0525 Results 24 hrs Laboratory Tests Test 01/09/17 11:15 01/09/17 13:37 01/09/17 14:25 01/09/17 17:50 Troponin I 0.140 *H 0.144 *H Bedside Glucose 286 H 261 H Test 01/09/17 18:28 01/09/17 20:53 01/10/17 00:47 01/10/17 01:01 Bedside Glucose 267 H 213 221 H Troponin I 0.152 *H Test 01/10/17 05:08 01/10/17 05:25 01/10/17 09:07 Bedside Glucose 180 205 White Blood Count 8.6 Red Blood Count 2.84 L Hemoglobin 8.7 L Hematocrit 27.6 L Mean Corpuscular Volume 97.2 Mean Corpuscular Hemoglobin 30.6 Mean Corpuscular Hemoglobin Concent 31.5 L Red Cell Distribution Width 13.4 Platelet Count 239 Mean Platelet Volume 10.5 H Neutrophils % 77.4 H Lymphocytes % 9.4 L Monocytes % 12.4 H Eosinophils % 0.0 Basophils % 0.2 Nucleated Red Blood Cells % 0.0 Neutrophils # 6.6 Lymphocytes # 0.8 Monocytes # 1.1 H Eosinophils # 0.0 Basophils # 0.0 Nucleated Red Blood Cells # 0.0 Sodium Level 147 H Potassium Level 3.6 Chloride Level 115 H Carbon Dioxide Level 26 Anion Gap 10 Blood Urea Nitrogen 36 H Creatinine 3.34 H Glucose Level 203 Calcium Level 9.2 Total Bilirubin 0.3 Direct Bilirubin 0.00 Indirect Bilirubin 0.3 Aspartate Amino Transf (AST/SGOT) 17 Alanine Aminotransferase (ALT/SGPT) 25 Alkaline Phosphatase 71 Total Protein 7.2 Albumin 3.3 Globulin 3.90 H Albumin/Globulin Ratio 0.84 Medications Current Medications Ondansetron HCl (Zofran Inj) 4 mg Q6H PRN IV NAUSEA AND/OR VOMITING Last administered on 12/13/16 01:13; Admin Dose 4 MG; Start 12/02/16 at 22:30 Miscellaneous Information 1 ea NOTE XX ; Start 12/02/16 at 23:00 Glucose (Glutose) 15 gm Q15M PRN PO DECREASED GLUCOSE; Start 12/02/16 at 23:00 Glucose (Glutose) 22.5 gm Q15M PRN PO DECREASED GLUCOSE; Start 12/02/16 at 23: 00 Dextrose (D50w Syringe) 25 ml Q15M PRN IV DECREASED GLUCOSE Last administered on 12/10/16 05:52; Admin Dose 25 ML; Start 12/02/16 at 23:00 Dextrose (D50w Syringe) 50 ml Q15M PRN IV DECREASED GLUCOSE; Start 12/02/16 at 23:00 Glucagon (Glucagen) 1 mg Q15M PRN IM DECREASED GLUCOSE; Start 12/02/16 at 23:00 Glucose (Glutose) 15 gm Q15M PRN BUCCAL DECREASED GLUCOSE; Start 12/02/16 at 23 :00 Gabapentin (Neurontin) 800 mg TID PO Last administered on 12/08/16 20:33; Admin Dose 800 MG; Start 12/03/16 at 09:00; Status Future Hold Meclizine HCl (Antivert) 25 mg TID PRN PO dizziness Last administered on 09:37; Admin Dose 25 MG; Start 12/02/16 at 23:00 Terazosin HCl (Hytrin) 5 mg HS PO Last administered on 12/07/16 20:28; Admin Dose 5 MG; Start 12/03/16 at 21:00; Status Future Hold Acetaminophen/ Hydrocodone Bitart ([place] (5/325)) 1 tab Q6H PRN PO PAIN LEVEL 4 -7 Last administered on 12/23/16 22:14; Admin Dose 1 TAB; Start 12/02/16 at 23: 30 Acetaminophen (Tylenol Tab) 650 mg Q6H PRN PO PAIN AND OR ELEVATED TEMP Last administered on 01/10/17 00:37; Admin Dose 650 MG; Start 12/02/16 at 23:30 Docusate Sodium (Colace) 100 mg BID PO Last administered on 12/08/16 20:32; Admin Dose 100 MG; Start 12/03/16 at 09:00; Status Future Hold Zolpidem Tartrate (Ambien) 5 mg HS PRN PO INSOMNIA Last administered on 20:53; Admin Dose 5 MG; Start 12/02/16 at 23:30 Benazepril HCl (Lotensin) 10 mg DAILY PO Last administered on 12/07/16 08:26; Admin Dose 10 MG; Start 12/04/16 at 09:00; Status Future Hold Morphine Sulfate (morphine) 2 mg Q2H PRN IV PAIN Last administered on 12/20/16 03:22; Admin Dose 2 MG; Start 12/09/16 at 09:30 Acetaminophen (Tylenol Supp) 650 mg Q6H PRN IN ELEVATED TEMPERATURE Last administered on 12/09/16 17:53; Admin Dose 650 MG; Start 12/09/16 at 17:00 Metoprolol Tartrate (Lopressor) 5 mg Q4H PRN IV HR>100 Last administered on 22:23; Admin Dose 5 MG; Start 12/09/16 at 17:48 Hydralazine HCl (Apresoline) 10 mg Q6H PRN IV SBP>150mm hg Last administered on 12/19/16 08:50; Admin Dose 10 MG; Start 12/11/16 at 10:30 Morphine Sulfate (morphine) 2 mg Q2H PRN IV PAIN LEVEL 4-7; Start 12/13/16 at 10 :00 Pantoprazole (Protonix Tab) 40 mg DAILY@06 PO Last administered on 01/10/17 05 :09; Admin Dose 40 MG; Start 12/23/16 at 06:00 Aspirin (Halfprin) 81 mg DAILY PO Last administered on 01/10/17 09:09; Admin Dose 81 MG; Start 12/31/16 at 09:00 Apixaban (Eliquis) 2.5 mg BID PO Last administered on 01/10/17 09:09; Admin Dose 2.5 MG; Start 12/30/16 at 21:00 Amiodarone HCl (Cordarone) 200 mg DAILY PO Last administered on 01/10/17 09:10 ; Admin Dose 200 MG; Start 12/31/16 at 09:00 Collagenase 1 applic 1 applic DAILY TOP Last administered on 01/10/17 09:10; Admin Dose 1 APPLIC; Start 01/04/17 at 09:00 Propofol 100 ml @ 2.544 mls/ hr Q12H IV Last administered on 01/08/17 04:00; Admin Dose 2.544 MLS/HR; Start 01/08/17 at 04:00 Meropenem 100 ml @ 200 mls/hr Q24H IVPB Last administered on 01/09/17 21:27; Admin Dose 200 MLS/HR; Start 01/08/17 at 21:00 Linezolid (Zyvox 600mg/D5W (Pmx)) 300 ml @ 300 mls/hr Q12 IVPB Last administered on 01/10/17 09:08; Admin Dose 300 MLS/HR; Start 01/08/17 at 18:00 Insulin Aspart (Novolog Insulin Pen) NOVOLOG *MODERATE* ALGORI... Q4 SC Last administered on 01/10/17 09:15; Admin Dose 4 UNIT; Start 01/09/17 at 14:15 Diagnostic Test (Pha) (Accu-Chek) 1 ea 02 XX ; Start 01/10/17 at 02:00 Metoprolol Tartrate (Lopressor) 100 mg BID PO Last administered on 01/10/17 09 :09; Admin Dose 100 MG; Start 01/09/17 at 14:00 Insulin Glargine (Lantus) 25 unit DAILY@20 SC ; Start 01/10/17 at 20:00 Assessment/Plan Additional Assessment/Plan - Unresponsive - CT brain per primary- fu - Positive troponin- per cardio, ICU monitoring. - Oliguric to Anuric Acute kidney injury 2/2 ATN- started on HD on 12/09/16 for acute fluid overload and Pulmonary edema - Acute resp failure - intubated on ventilator -now extubated on 12/10/2016- then again reintubated on 12/13/2016- now self extubated on 12/18/16 - Moderate to large right pleural effusion s/p Right thoracentesis 900 cc drained on 12/16/16 - Left foot diabetic ulcer/cellulitis currently on IV antibiotics, Zosyn and vancomycin. - History of diabetes mellitus, insulin-dependent with lower extremity neuropathy. - History of hypertension. - History of aortic stenosis with diastolic dysfunction with ejection fraction 60% on echocardiogram. PLAN: S/p HD today 3 L removed yesterday, BP stable,still overloaded- will stop IVF. s/p Right chest Permacath placement for dialysis access HD placement done at [facility] HD center - done- pt gets HD on , , and ady will continue to follow up Further recommendations depend upon patient's clinical course. Plan of care discussed with Dr Juan M Remy/staff YULIANA SIMMONS January 10, 2017 10:56
--- NOTE | 2017-01-10 11:21 | CONS ---
Date/Time of Note Date/Time of Note DATE: 01/10/17 TIME: 11:19 Consult Date/Type/Reason Admit Date/Time Dec 02, 2016 at 21:01 Initial Consult Date 12/08/16 Type of Consultation: Pulm/CCM Ordering Provider: VIET PARKER MD Subjective Unresponsive on [facility] ventilator. Objective Vital Signs Date Time Temp Pulse Resp B/P Pulse Ox O2 Delivery O2 Flow Rate FiO2 01/10/17 09:55 72 17 100 40 01/10/17 09:00 134/64 Mechanical Ventilator 01/10/17 08:00 98.9 01/07/17 14:56 2.0 Intake and Output 01/09/17 01/09/17 01/10/17 15:00 23:00 07:00 Intake Total 620 ml 440 ml 60 ml Output Total 3300 ml 20 ml 0 ml Balance -2680 ml 420 ml 60 ml Exam HEENT: Neck supple; ++ JVD; no LAD; ET tube in place CVS: Irreg irreg, S1 and S2 CHEST: Bilateral rales ABD: Soft, NT, + BS EXT: No c/c + edema Results/Medications Result Diagram: 01/10/17 0525 01/10/17 0525 Results 24 hrs Laboratory Tests Test 01/09/17 13:37 01/09/17 14:25 01/09/17 17:50 01/09/17 18:28 Bedside Glucose 286 H 261 H 267 H Troponin I 0.144 *H Test 01/09/17 20:53 01/10/17 00:47 01/10/17 01:01 01/10/17 05:08 Bedside Glucose 213 221 H 180 Troponin I 0.152 *H Test 01/10/17 05:25 01/10/17 09:07 White Blood Count 8.6 Red Blood Count 2.84 L Hemoglobin 8.7 L Hematocrit 27.6 L Mean Corpuscular Volume 97.2 Mean Corpuscular Hemoglobin 30.6 Mean Corpuscular Hemoglobin Concent 31.5 L Red Cell Distribution Width 13.4 Platelet Count 239 Mean Platelet Volume 10.5 H Neutrophils % 77.4 H Lymphocytes % 9.4 L Monocytes % 12.4 H Eosinophils % 0.0 Basophils % 0.2 Nucleated Red Blood Cells % 0.0 Neutrophils # 6.6 Lymphocytes # 0.8 Monocytes # 1.1 H Eosinophils # 0.0 Basophils # 0.0 Nucleated Red Blood Cells # 0.0 Sodium Level 147 H Potassium Level 3.6 Chloride Level 115 H Carbon Dioxide Level 26 Anion Gap 10 Blood Urea Nitrogen 36 H Creatinine 3.34 H Glucose Level 203 Calcium Level 9.2 Total Bilirubin 0.3 Direct Bilirubin 0.00 Indirect Bilirubin 0.3 Aspartate Amino Transf (AST/SGOT) 17 Alanine Aminotransferase (ALT/SGPT) 25 Alkaline Phosphatase 71 Total Protein 7.2 Albumin 3.3 Globulin 3.90 H Albumin/Globulin Ratio 0.84 Bedside Glucose 205 Medications Current Medications Ondansetron HCl (Zofran Inj) 4 mg Q6H PRN IV NAUSEA AND/OR VOMITING Last administered on 12/13/16 01:13; Admin Dose 4 MG; Start 12/02/16 at 22:30 Miscellaneous Information 1 ea NOTE XX ; Start 12/02/16 at 23:00 Glucose (Glutose) 15 gm Q15M PRN PO DECREASED GLUCOSE; Start 12/02/16 at 23:00 Glucose (Glutose) 22.5 gm Q15M PRN PO DECREASED GLUCOSE; Start 12/02/16 at 23: 00 Dextrose (D50w Syringe) 25 ml Q15M PRN IV DECREASED GLUCOSE Last administered on 12/10/16 05:52; Admin Dose 25 ML; Start 12/02/16 at 23:00 Dextrose (D50w Syringe) 50 ml Q15M PRN IV DECREASED GLUCOSE; Start 12/02/16 at 23:00 Glucagon (Glucagen) 1 mg Q15M PRN IM DECREASED GLUCOSE; Start 12/02/16 at 23:00 Glucose (Glutose) 15 gm Q15M PRN BUCCAL DECREASED GLUCOSE; Start 12/02/16 at 23 :00 Gabapentin (Neurontin) 800 mg TID PO Last administered on 12/08/16 20:33; Admin Dose 800 MG; Start 12/03/16 at 09:00; Status Future Hold Meclizine HCl (Antivert) 25 mg TID PRN PO dizziness Last administered on 09:37; Admin Dose 25 MG; Start 12/02/16 at 23:00 Terazosin HCl (Hytrin) 5 mg HS PO Last administered on 12/07/16 20:28; Admin Dose 5 MG; Start 12/03/16 at 21:00; Status Future Hold Acetaminophen/ Hydrocodone Bitart ([place] (5/325)) 1 tab Q6H PRN PO PAIN LEVEL 4 -7 Last administered on 12/23/16 22:14; Admin Dose 1 TAB; Start 12/02/16 at 23: 30 Acetaminophen (Tylenol Tab) 650 mg Q6H PRN PO PAIN AND OR ELEVATED TEMP Last administered on 01/10/17 00:37; Admin Dose 650 MG; Start 12/02/16 at 23:30 Docusate Sodium (Colace) 100 mg BID PO Last administered on 12/08/16 20:32; Admin Dose 100 MG; Start 12/03/16 at 09:00; Status Future Hold Zolpidem Tartrate (Ambien) 5 mg HS PRN PO INSOMNIA Last administered on 20:53; Admin Dose 5 MG; Start 12/02/16 at 23:30 Benazepril HCl (Lotensin) 10 mg DAILY PO Last administered on 12/07/16 08:26; Admin Dose 10 MG; Start 12/04/16 at 09:00; Status Future Hold Morphine Sulfate (morphine) 2 mg Q2H PRN IV PAIN Last administered on 12/20/16 03:22; Admin Dose 2 MG; Start 12/09/16 at 09:30 Acetaminophen (Tylenol Supp) 650 mg Q6H PRN AL ELEVATED TEMPERATURE Last administered on 12/09/16 17:53; Admin Dose 650 MG; Start 12/09/16 at 17:00 Metoprolol Tartrate (Lopressor) 5 mg Q4H PRN IV HR>100 Last administered on 22:23; Admin Dose 5 MG; Start 12/09/16 at 17:48 Hydralazine HCl (Apresoline) 10 mg Q6H PRN IV SBP>150mm hg Last administered on 12/19/16 08:50; Admin Dose 10 MG; Start 12/11/16 at 10:30 Morphine Sulfate (morphine) 2 mg Q2H PRN IV PAIN LEVEL 4-7; Start 12/13/16 at 10 :00 Pantoprazole (Protonix Tab) 40 mg DAILY@06 PO Last administered on 01/10/17 05 :09; Admin Dose 40 MG; Start 12/23/16 at 06:00 Aspirin (Halfprin) 81 mg DAILY PO Last administered on 01/10/17 09:09; Admin Dose 81 MG; Start 12/31/16 at 09:00 Apixaban (Eliquis) 2.5 mg BID PO Last administered on 01/10/17 09:09; Admin Dose 2.5 MG; Start 12/30/16 at 21:00 Amiodarone HCl (Cordarone) 200 mg DAILY PO Last administered on 01/10/17 09:10 ; Admin Dose 200 MG; Start 12/31/16 at 09:00 Collagenase 1 applic 1 applic DAILY TOP Last administered on 01/10/17 09:10; Admin Dose 1 APPLIC; Start 01/04/17 at 09:00 Propofol 100 ml @ 2.544 mls/ hr Q12H IV Last administered on 01/08/17 04:00; Admin Dose 2.544 MLS/HR; Start 01/08/17 at 04:00 Meropenem 100 ml @ 200 mls/hr Q24H IVPB Last administered on 01/09/17 21:27; Admin Dose 200 MLS/HR; Start 01/08/17 at 21:00 Linezolid (Zyvox 600mg/D5W (Pmx)) 300 ml @ 300 mls/hr Q12 IVPB Last administered on 01/10/17 09:08; Admin Dose 300 MLS/HR; Start 01/08/17 at 18:00 Insulin Aspart (Novolog Insulin Pen) NOVOLOG *MODERATE* ALGORI... Q4 SC Last administered on 01/10/17 09:15; Admin Dose 4 UNIT; Start 01/09/17 at 14:15 Diagnostic Test (Pha) (Accu-Chek) 1 ea 02 XX ; Start 01/10/17 at 02:00 Metoprolol Tartrate (Lopressor) 100 mg BID PO Last administered on 01/10/17 09 :09; Admin Dose 100 MG; Start 01/09/17 at 14:00 Insulin Glargine (Lantus) 25 unit DAILY@20 SC ; Start 01/10/17 at 20:00 Assessment/Plan Additional Assessment/Plan IMP: 1. Cardiopulmonary Arrest: Likely a respiratory event leading to the asystolic event 2. CHF/Volume overload 3. Respiratory Failure/Vent 4. 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 Fungemia 6. CKD-on HD 7. Anemia RECS: 1. Vent support 2. Brain CT 3. HD/UF 4. Keep off sedatives 5. Consider EEG 6. Case discussed with family at length 7. TF/Free H20 35 min cc time JACOB SANTIZO MD January 10, 2017 11:21
--- NOTE | 2017-01-10 12:23 | CONS ---
Date/Time of Note Date/Time of Note DATE: 01/10/17 TIME: 12:22 Assessment/Plan Assessment/Plan Additional Assessment/Plan Respiratory failure on Ventilator PAF in Sinus Tachycardia CHF Severe Aortic Stenosis Osteomyelitis Cellulitis left foot Diabetic foot Diabetes Tobacco abuse He went into respiratory distress and had to be intubated and went into PEA arrest and CPR was initiated given epinephrine, atropine and calcium chloride Continue Vent support Continue aggressive Pulmonary Toiletry Avoid Diuretics Avoid Volume Overload Increased metoprolol Continue Amiodarone Continue Eliquis Continue Insulin Continue antibiotics HD as scheduled Scheduled for CT Brain today Consultation Date/Type/Reason Admit Date/Time Dec 02, 2016 at 21:01 Initial Consult Date 12/08/16 Type of Consultation: Pulm/CCM Referring Provider: VIET PARKER MD Exam/Review of Systems Vital Signs Vitals Vital Signs Date Time Temp Pulse Resp B/P Pulse Ox O2 Delivery O2 Flow Rate FiO2 01/10/17 11:08 67 18 100 40 01/10/17 11:00 116/60 Mechanical Ventilator 01/10/17 08:00 98.9 01/07/17 14:56 2.0 Intake and Output 01/09/17 01/09/17 01/10/17 15:00 23:00 07:00 Intake Total 620 ml 440 ml 60 ml Output Total 3300 ml 20 ml 0 ml Balance -2680 ml 420 ml 60 ml Exam opens eyes to commands HEENT Intubated CVS Tachycardic, with Systolic murmur heard at LSB RS Mechanical Breath sounds heard bilaterally Abd BS sounds heard Ext No pedal edema Results Result Diagram: 01/10/17 0525 01/10/17 0525 Results 24 hrs Laboratory Tests Test 01/09/17 13:37 01/09/17 14:25 01/09/17 17:50 01/09/17 18:28 Bedside Glucose 286 H 261 H 267 H Troponin I 0.144 *H Test 01/09/17 20:53 01/10/17 00:47 01/10/17 01:01 01/10/17 05:08 Bedside Glucose 213 221 H 180 Troponin I 0.152 *H Test 01/10/17 05:25 01/10/17 09:07 White Blood Count 8.6 Red Blood Count 2.84 L Hemoglobin 8.7 L Hematocrit 27.6 L Mean Corpuscular Volume 97.2 Mean Corpuscular Hemoglobin 30.6 Mean Corpuscular Hemoglobin Concent 31.5 L Red Cell Distribution Width 13.4 Platelet Count 239 Mean Platelet Volume 10.5 H Neutrophils % 77.4 H Lymphocytes % 9.4 L Monocytes % 12.4 H Eosinophils % 0.0 Basophils % 0.2 Nucleated Red Blood Cells % 0.0 Neutrophils # 6.6 Lymphocytes # 0.8 Monocytes # 1.1 H Eosinophils # 0.0 Basophils # 0.0 Nucleated Red Blood Cells # 0.0 Sodium Level 147 H Potassium Level 3.6 Chloride Level 115 H Carbon Dioxide Level 26 Anion Gap 10 Blood Urea Nitrogen 36 H Creatinine 3.34 H Glucose Level 203 Calcium Level 9.2 Total Bilirubin 0.3 Direct Bilirubin 0.00 Indirect Bilirubin 0.3 Aspartate Amino Transf (AST/SGOT) 17 Alanine Aminotransferase (ALT/SGPT) 25 Alkaline Phosphatase 71 Total Protein 7.2 Albumin 3.3 Globulin 3.90 H Albumin/Globulin Ratio 0.84 Bedside Glucose 205 Medications Medications Current Medications Ondansetron HCl (Zofran Inj) 4 mg Q6H PRN IV NAUSEA AND/OR VOMITING Last administered on 12/13/16 01:13; Admin Dose 4 MG; Start 12/02/16 at 22:30 Miscellaneous Information 1 ea NOTE XX ; Start 12/02/16 at 23:00 Glucose (Glutose) 15 gm Q15M PRN PO DECREASED GLUCOSE; Start 12/02/16 at 23:00 Glucose (Glutose) 22.5 gm Q15M PRN PO DECREASED GLUCOSE; Start 12/02/16 at 23: 00 Dextrose (D50w Syringe) 25 ml Q15M PRN IV DECREASED GLUCOSE Last administered on 12/10/16 05:52; Admin Dose 25 ML; Start 12/02/16 at 23:00 Dextrose (D50w Syringe) 50 ml Q15M PRN IV DECREASED GLUCOSE; Start 12/02/16 at 23:00 Glucagon (Glucagen) 1 mg Q15M PRN IM DECREASED GLUCOSE; Start 12/02/16 at 23:00 Glucose (Glutose) 15 gm Q15M PRN BUCCAL DECREASED GLUCOSE; Start 12/02/16 at 23 :00 Gabapentin (Neurontin) 800 mg TID PO Last administered on 12/08/16 20:33; Admin Dose 800 MG; Start 12/03/16 at 09:00; Status Future Hold Meclizine HCl (Antivert) 25 mg TID PRN PO dizziness Last administered on 09:37; Admin Dose 25 MG; Start 12/02/16 at 23:00 Terazosin HCl (Hytrin) 5 mg HS PO Last administered on 12/07/16 20:28; Admin Dose 5 MG; Start 12/03/16 at 21:00; Status Future Hold Acetaminophen/ Hydrocodone Bitart ([place] (5/325)) 1 tab Q6H PRN PO PAIN LEVEL 4 -7 Last administered on 12/23/16 22:14; Admin Dose 1 TAB; Start 12/02/16 at 23: 30 Acetaminophen (Tylenol Tab) 650 mg Q6H PRN PO PAIN AND OR ELEVATED TEMP Last administered on 01/10/17 00:37; Admin Dose 650 MG; Start 12/02/16 at 23:30 Docusate Sodium (Colace) 100 mg BID PO Last administered on 12/08/16 20:32; Admin Dose 100 MG; Start 12/03/16 at 09:00; Status Future Hold Zolpidem Tartrate (Ambien) 5 mg HS PRN PO INSOMNIA Last administered on 20:53; Admin Dose 5 MG; Start 12/02/16 at 23:30 Benazepril HCl (Lotensin) 10 mg DAILY PO Last administered on 12/07/16 08:26; Admin Dose 10 MG; Start 12/04/16 at 09:00; Status Future Hold Morphine Sulfate (morphine) 2 mg Q2H PRN IV PAIN Last administered on 12/20/16 03:22; Admin Dose 2 MG; Start 12/09/16 at 09:30 Acetaminophen (Tylenol Supp) 650 mg Q6H PRN [place] ELEVATED TEMPERATURE Last administered on 12/09/16 17:53; Admin Dose 650 MG; Start 12/09/16 at 17:00 Metoprolol Tartrate (Lopressor) 5 mg Q4H PRN IV HR>100 Last administered on 22:23; Admin Dose 5 MG; Start 12/09/16 at 17:48 Hydralazine HCl (Apresoline) 10 mg Q6H PRN IV SBP>150mm hg Last administered on 12/19/16 08:50; Admin Dose 10 MG; Start 12/11/16 at 10:30 Morphine Sulfate (morphine) 2 mg Q2H PRN IV PAIN LEVEL 4-7; Start 12/13/16 at 10 :00 Pantoprazole (Protonix Tab) 40 mg DAILY@06 PO Last administered on 01/10/17 05 :09; Admin Dose 40 MG; Start 12/23/16 at 06:00 Aspirin (Halfprin) 81 mg DAILY PO Last administered on 01/10/17 09:09; Admin Dose 81 MG; Start 12/31/16 at 09:00 Apixaban (Eliquis) 2.5 mg BID PO Last administered on 01/10/17 09:09; Admin Dose 2.5 MG; Start 12/30/16 at 21:00 Amiodarone HCl (Cordarone) 200 mg DAILY PO Last administered on 01/10/17 09:10 ; Admin Dose 200 MG; Start 12/31/16 at 09:00 Collagenase 1 applic 1 applic DAILY TOP Last administered on 01/10/17 09:10; Admin Dose 1 APPLIC; Start 01/04/17 at 09:00 Propofol 100 ml @ 2.544 mls/ hr Q12H IV Last administered on 01/08/17 04:00; Admin Dose 2.544 MLS/HR; Start 01/08/17 at 04:00 Meropenem 100 ml @ 200 mls/hr Q24H IVPB Last administered on 01/09/17 21:27; Admin Dose 200 MLS/HR; Start 01/08/17 at 21:00 Linezolid (Zyvox 600mg/D5W (Pmx)) 300 ml @ 300 mls/hr Q12 IVPB Last administered on 01/10/17 09:08; Admin Dose 300 MLS/HR; Start 01/08/17 at 18:00 Insulin Aspart (Novolog Insulin Pen) NOVOLOG *MODERATE* ALGORI... Q4 SC Last administered on 01/10/17 09:15; Admin Dose 4 UNIT; Start 01/09/17 at 14:15 Diagnostic Test (Pha) (Accu-Chek) 1 ea 02 XX ; Start 01/10/17 at 02:00 Metoprolol Tartrate (Lopressor) 100 mg BID PO Last administered on 01/10/17 09 :09; Admin Dose 100 MG; Start 01/09/17 at 14:00 Insulin Glargine (Lantus) 25 unit DAILY@20 SC ; Start 01/10/17 at 20:00 VIRI ROY M.D. January 10, 2017 12:23
--- NOTE | 2017-01-10 13:53 | RADRPT ---
PROCEDURE: CT Brain without contrast. CLINICAL INDICATION: Change in mental status TECHNIQUE: A CT of the brain was performed on a multidetector CT scanner utilizing axial imaging f rom the skull base through the vertex without IV contrast. Multiplanar reformatted images were made . Images were reviewed on a PACS workstation. The CTDIvol is 43 mGy and the DLP is a 720 mGycm. COMPARISON: Head CT December 13, 2016 FINDINGS: There is moderate to severe diffuse cerebral volume loss with sulcal and ventricular dilatation. No discrete extra-axial fluid collection or masses seen. Ventricles are in the midline and of normal contour and configuration. There is normal duke-white discrimination. Minimal white matter disease is seen in the frontal lobes. No intracranial hemorrhage is visualized. There is normal aeration of the visualized paranasal sinuses. IMPRESSION: Atrophy. Mild white matter disease compatible with chronic small vessel ischemia. No intracranial hemorrhage, mass or acute infarct. .Andre Barajas MD, MD Date Time Electronically viewed and signed by .Andre Barajas MD, on 01/10/2017 13:53 .A/
--- NOTE | 2017-01-10 17:11 | CONS ---
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 Blood cultures from HD catheter on 12/13/2016 are negative to date. 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 superficial swab grew inna only - right pleural effusion s/p thoracentesis with .9L removed on 12/16/2016; (Note: there is no pleural fluid cx since orders were placed after Right thoracentesis , and Left thoracentesis was not performed on 12/17/16 d/t insufficient fluid) - funguria - ARANZA, on HD from 12/09/2016 - A fib; now in SR - troponin+ - small nonreversible perfusion abnormality in the inferoapical and inferior carver; EF 36% per Lexiscan 12/24/2016 - severe , EF 40-45% per TTE 12/17/16 - DM - Hgb A1c 8.7% - HTN associated with DM - episodes of hypercapnic respiratory failure, responding well to BiPAP - lactic acidosis 01/08/2017 - acute encephalopathy with likely anoxic brain injury Recommendations: - fu solorzano cultures - cont. meropenem and add linezolid (pt is allergic to vancomycin). - ultimately, Pt needs 6 weeks of antibiotics to treat 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 and left fourth proximal phalanx: 12/03/2016 through 01/15/2017 (s/p pip/tazo 12/03/16-01/08/17) - serial CXR, lactic acid, and re-check procalcitonin - consider CT brain, EEG, and Neuro eval Problems: Consultation Date/Type/Reason Admit Date/Time Dec 02, 2016 at 21:01 Type of Consultation: ID Referring Provider: VIET PARKER MD Exam/Review of Systems Vital Signs Vitals Vital Signs Date Time Temp Pulse Resp B/P Pulse Ox O2 Delivery O2 Flow Rate FiO2 01/10/17 16:00 85 01/10/17 16:00 98.9 20 121/63 100 Mechanical Ventilator 01/10/17 15:53 40 01/07/17 14:56 2.0 Intake and Output 01/09/17 01/09/17 01/10/17 15:00 23:00 07:00 Intake Total 620 ml 440 ml 60 ml Output Total 3300 ml 20 ml 0 ml Balance -2680 ml 420 ml 60 ml Exam d/w family at bedside Constitutional: non-verbal Psych: nl mood/affect, no complaints Head: atraumatic, normocephalic Eyes: EOMI, PERRL, nl conjunctiva, nl lids, nl sclera Neck: non-tender, supple Respiratory: clear to auscultation, normal air movement Cardiovascular: nl pulses, regular rate and rhythm Gastrointestinal: nl liver, spleen, non-tender, soft Results Result Diagram: 01/10/17 0525 01/10/17 0525 Results 24 hrs Laboratory Tests Test 01/09/17 17:50 01/09/17 18:28 01/09/17 20:53 01/10/17 00:47 Troponin I 0.144 *H 0.152 *H Bedside Glucose 267 H 213 Test 01/10/17 01:01 01/10/17 05:08 01/10/17 05:25 01/10/17 09:07 Bedside Glucose 221 H 180 205 White Blood Count 8.6 Red Blood Count 2.84 L Hemoglobin 8.7 L Hematocrit 27.6 L Mean Corpuscular Volume 97.2 Mean Corpuscular Hemoglobin 30.6 Mean Corpuscular Hemoglobin Concent 31.5 L Red Cell Distribution Width 13.4 Platelet Count 239 Mean Platelet Volume 10.5 H Neutrophils % 77.4 H Lymphocytes % 9.4 L Monocytes % 12.4 H Eosinophils % 0.0 Basophils % 0.2 Nucleated Red Blood Cells % 0.0 Neutrophils # 6.6 Lymphocytes # 0.8 Monocytes # 1.1 H Eosinophils # 0.0 Basophils # 0.0 Nucleated Red Blood Cells # 0.0 Sodium Level 147 H Potassium Level 3.6 Chloride Level 115 H Carbon Dioxide Level 26 Anion Gap 10 Blood Urea Nitrogen 36 H Creatinine 3.34 H Glucose Level 203 Calcium Level 9.2 Total Bilirubin 0.3 Direct Bilirubin 0.00 Indirect Bilirubin 0.3 Aspartate Amino Transf (AST/SGOT) 17 Alanine Aminotransferase (ALT/SGPT) 25 Alkaline Phosphatase 71 Total Protein 7.2 Albumin 3.3 Globulin 3.90 H Albumin/Globulin Ratio 0.84 Test 01/10/17 13:12 Bedside Glucose 264 H Medications Medications Current Medications Ondansetron HCl (Zofran Inj) 4 mg Q6H PRN IV NAUSEA AND/OR VOMITING Last administered on 12/13/16 01:13; Admin Dose 4 MG; Start 12/02/16 at 22:30 Miscellaneous Information 1 ea NOTE XX ; Start 12/02/16 at 23:00 Glucose (Glutose) 15 gm Q15M PRN PO DECREASED GLUCOSE; Start 12/02/16 at 23:00 Glucose (Glutose) 22.5 gm Q15M PRN PO DECREASED GLUCOSE; Start 12/02/16 at 23: 00 Dextrose (D50w Syringe) 25 ml Q15M PRN IV DECREASED GLUCOSE Last administered on 12/10/16 05:52; Admin Dose 25 ML; Start 12/02/16 at 23:00 Dextrose (D50w Syringe) 50 ml Q15M PRN IV DECREASED GLUCOSE; Start 12/02/16 at 23:00 Glucagon (Glucagen) 1 mg Q15M PRN IM DECREASED GLUCOSE; Start 12/02/16 at 23:00 Glucose (Glutose) 15 gm Q15M PRN BUCCAL DECREASED GLUCOSE; Start 12/02/16 at 23 :00 Gabapentin (Neurontin) 800 mg TID PO Last administered on 12/08/16 20:33; Admin Dose 800 MG; Start 12/03/16 at 09:00; Status Future Hold Meclizine HCl (Antivert) 25 mg TID PRN PO dizziness Last administered on 09:37; Admin Dose 25 MG; Start 12/02/16 at 23:00 Terazosin HCl (Hytrin) 5 mg HS PO Last administered on 12/07/16 20:28; Admin Dose 5 MG; Start 12/03/16 at 21:00; Status Future Hold Acetaminophen/ Hydrocodone Bitart ([place] (5/325)) 1 tab Q6H PRN PO PAIN LEVEL 4 -7 Last administered on 12/23/16 22:14; Admin Dose 1 TAB; Start 12/02/16 at 23: 30 Acetaminophen (Tylenol Tab) 650 mg Q6H PRN PO PAIN AND OR ELEVATED TEMP Last administered on 01/10/17 00:37; Admin Dose 650 MG; Start 12/02/16 at 23:30 Docusate Sodium (Colace) 100 mg BID PO Last administered on 12/08/16 20:32; Admin Dose 100 MG; Start 12/03/16 at 09:00; Status Future Hold Zolpidem Tartrate (Ambien) 5 mg HS PRN PO INSOMNIA Last administered on 20:53; Admin Dose 5 MG; Start 12/02/16 at 23:30 Benazepril HCl (Lotensin) 10 mg DAILY PO Last administered on 12/07/16 08:26; Admin Dose 10 MG; Start 12/04/16 at 09:00; Status Future Hold Morphine Sulfate (morphine) 2 mg Q2H PRN IV PAIN Last administered on 12/20/16 03:22; Admin Dose 2 MG; Start 12/09/16 at 09:30 Acetaminophen (Tylenol Supp) 650 mg Q6H PRN [place] ELEVATED TEMPERATURE Last administered on 12/09/16 17:53; Admin Dose 650 MG; Start 12/09/16 at 17:00 Metoprolol Tartrate (Lopressor) 5 mg Q4H PRN IV HR>100 Last administered on 22:23; Admin Dose 5 MG; Start 12/09/16 at 17:48 Hydralazine HCl (Apresoline) 10 mg Q6H PRN IV SBP>150mm hg Last administered on 12/19/16 08:50; Admin Dose 10 MG; Start 12/11/16 at 10:30 Morphine Sulfate (morphine) 2 mg Q2H PRN IV PAIN LEVEL 4-7; Start 12/13/16 at 10 :00 Pantoprazole (Protonix Tab) 40 mg DAILY@06 PO Last administered on 01/10/17 05 :09; Admin Dose 40 MG; Start 12/23/16 at 06:00 Aspirin (Halfprin) 81 mg DAILY PO Last administered on 01/10/17 09:09; Admin Dose 81 MG; Start 12/31/16 at 09:00 Apixaban (Eliquis) 2.5 mg BID PO Last administered on 01/10/17 09:09; Admin Dose 2.5 MG; Start 12/30/16 at 21:00 Amiodarone HCl (Cordarone) 200 mg DAILY PO Last administered on 01/10/17 09:10 ; Admin Dose 200 MG; Start 12/31/16 at 09:00 Collagenase 1 applic 1 applic DAILY TOP Last administered on 01/10/17 09:10; Admin Dose 1 APPLIC; Start 01/04/17 at 09:00 Propofol 100 ml @ 2.544 mls/ hr Q12H IV Last administered on 01/08/17 04:00; Admin Dose 2.544 MLS/HR; Start 01/08/17 at 04:00 Meropenem 100 ml @ 200 mls/hr Q24H IVPB Last administered on 01/09/17 21:27; Admin Dose 200 MLS/HR; Start 01/08/17 at 21:00 Linezolid (Zyvox 600mg/D5W (Pmx)) 300 ml @ 300 mls/hr Q12 IVPB Last administered on 01/10/17 09:08; Admin Dose 300 MLS/HR; Start 01/08/17 at 18:00 Insulin Aspart (Novolog Insulin Pen) NOVOLOG *MODERATE* ALGORI... Q4 SC Last administered on 01/10/17 13:14; Admin Dose 8 UNIT; Start 01/09/17 at 14:15 Diagnostic Test (Pha) (Accu-Chek) 1 ea 02 XX ; Start 01/10/17 at 02:00 Metoprolol Tartrate (Lopressor) 100 mg BID PO Last administered on 01/10/17 09 :09; Admin Dose 100 MG; Start 01/09/17 at 14:00 Insulin Glargine (Lantus) 25 unit DAILY@20 SC ; Start 01/10/17 at 20:00 NIKHIL RAM MD January 10, 2017 17:11
[2017-01-10] MEDS ORDERED: INSULIN GLARGINE [LANtus] 3 ML PEN SC SCH (20:00)
[2017-01-10] MEDS: MEROPENEM 500 MG/100 ML (PMX) 100 ML IVPB SCH (20:19)
--- NOTE | 2017-01-10 23:25 | PN ---
Date/Time of Note Date/Time of Note DATE: 01/10/17 TIME: 23:25 Assessment/Plan Lines/Catheters IV Catheter Type (from Nrs): Permacath Assessment/Plan Problems: (1) Non-pressure chronic ulcer of other part of left foot with fat layer exposed (2) Peripheral vascular disease (3) Diabetes, polyneuropathy Assessment/Plan I ordered Santyl ointment to the black eschar of the left big toe with daily dressing changes. Patient will be followed in house. Subjective 24 Hr Interval Summary Patient was seen and examined in the ICU. He is intubated. No overnight adverse events reported by nursing. Exam/Review of Systems Vital Signs Vitals Vital Signs Date Time Temp Pulse Resp B/P Pulse Ox O2 Delivery O2 Flow Rate FiO2 01/11/17 06:00 76 17 131/57 100 Mechanical Ventilator 01/11/17 05:36 40 01/11/17 04:00 98.8 01/07/17 14:56 2.0 Intake and Output 01/10/17 01/10/17 01/11/17 15:00 23:00 07:00 Intake Total 420 ml 180 ml 180 ml Output Total 275 ml 150 ml Balance 420 ml -95 ml 30 ml Exam Free Text/Dictation Intubated in no acute distress. Left big toe continues to have black eschar on the plantar aspect with no surrounding erythema. The eschar is somewhat loose and there is no pus or bleeding noted. There is no underlying fluctuance. There is mild edema of the left big toe. Temperature gradient is increased bilateral lower extremity. DP and PT pulses are weak b/l feet. No other changes noted on exam. Results Result Diagram: 01/11/17 0545 01/11/17 0545 YEIMI LIZARRAGA DPM January 10, 2017 23:25
[2017-01-11] VITALS (39 sets, daily range): BP systolic 98–149; BP diastolic 44–73; PULSE 60–80; RESP 16–21
[2017-01-11] MEDS: INSULIN ASPART [NOVOLOG] 3 ML PEN SC SCH ×6 (01:02→20:38)
[2017-01-11] MEDS: ALBUTEROL 18 GM INHALER INH SCH ×4 (01:42→19:20)
[2017-01-11] MEDS: ACCU-CHEK XX SCH (02:00)
[2017-01-11] MEDS: PROPOFOL 100 ML IV SCH ×2 (02:20→15:17)
[2017-01-11] MEDS: PANTOPRAZOLE (EC) 40 MG TAB PO SCH (06:04)
[2017-01-11 06:19] LABS: ADD SCAN DIFF NO
[2017-01-11 06:27] LABS: BASOPHILS % 0.2 % (0.0-2.0); EOSINOPHILS % 0.4 % (0.0-7.0); HEMATOCRIT 28.2 % (42.0-52.0); LYMPHOCYTES # 0.8 10^3/ul (0.8-2.9); LYMPHOCYTES % 9.9 % (15.0-51.0); MEAN CORPUSCULAR HEMOGLOBIN 30.9 pg (29.0-33.0); MEAN CORPUSCULAR HGB CONC 31.9 g/dl (32.0-37.0); MEAN CORPUSCULAR VOLUME 96.9 fl (82.0-101.0); MEAN PLATELET VOLUME 10.3 fl (7.4-10.4); MONOCYTE # 0.8 10^3/ul (0.3-0.9); MONOCYTES % 10.4 % (0.0-11.0); NEUTROPHIL # 6.3 10^3/ul (1.6-7.5); NEUTROPHILS % 78.5 % (39.0-77.0); PLATELET COUNT 242 10^3/UL (140-415); RED BLOOD COUNT 2.91 10^6/ul (4.70-6.10); RED CELL DISTRIBUTION WIDTH 13.1 % (11.5-14.5); WHITE BLOOD COUNT 8.1 10^3/ul (4.8-10.8)
[2017-01-11 06:52] LABS: ALBUMIN 3.3 g/dl (3.3-4.9); ALBUMIN/GLOBULIN RATIO 0.89; BILIRUBIN,INDIRECT 0.2 mg/dl (0-1.1); BILIRUBIN,TOTAL 0.2 mg/dl (0.2-1.3); CREATININE 3.87 mg/dl (0.61-1.24); POTASSIUM 3.9 mmol/L (3.5-5.1)
--- NOTE | 2017-01-11 09:37 | CONS ---
Date/Time of Note Date/Time of Note DATE: 01/11/17 TIME: 09:34 Assessment/Plan Assessment/Plan Additional Assessment/Plan Ventilator setting; AC of 16, tidal volume 500, PEEP of 5, 40% FiO2. Next Assessment recommendations; 1. Patient admitted for recurrent respiratory failure likely from fluid overload/pulmonary edema leading to respiratory failure again. 2. Status post CPR, likely with resultant anoxic brain injury. 3. End-stage renal disease, on hemodialysis. 4. Pneumonia. Continue current treatment. Will obtain follow-up chest x-ray. Prognosis is poor. Consultation Date/Type/Reason Admit Date/Time Dec 02, 2016 at 21:01 Initial Consult Date 12/03/16 Type of Consultation: Pulmonary/critical care Referring Provider: VIET PARKER MD 24 HR Interval Summary Free Text/Dictation Patient condition remains critical. Remains minimally responsive. No overt seizure activity noted. Has remained hemodynamically stable. General exam; elderly male, orally intubated, semi-responsive. Currently in no distress. Exam/Review of Systems Vital Signs Vitals Vital Signs Date Time Temp Pulse Resp B/P Pulse Ox O2 Delivery O2 Flow Rate FiO2 01/11/17 09:00 74 17 133/56 100 Mechanical Ventilator 01/11/17 08:00 98.8 01/11/17 05:36 40 01/07/17 14:56 2.0 Intake and Output 01/10/17 01/10/17 01/11/17 15:00 23:00 07:00 Intake Total 420 ml 180 ml 180 ml Output Total 275 ml 150 ml Balance 420 ml -95 ml 30 ml Exam HEENT examination; supple neck, no JVD. No lymphadenopathy. Midline trachea. No thyromegaly. Orally intubated. Patient is edentulous. Pupils are small bilaterally. Chest examination; diminished but clear vessel. S1-S2 audible, no murmurs. Regular rhythm. Abdomen examination; soft, nondistended. No organomegaly. Bowel sounds audible. Extremity examination; no peripheral edema. [employer] examination; patient opens eyes on sternal rubbing. Results Result Diagram: 01/11/17 0545 01/11/17 0545 Results 24 hrs Laboratory Tests Test 01/10/17 13:12 01/10/17 17:42 01/10/17 20:16 01/11/17 00:59 Bedside Glucose 264 H 206 187 224 H Test 01/11/17 05:45 01/11/17 06:03 White Blood Count 8.1 Red Blood Count 2.91 L Hemoglobin 9.0 L Hematocrit 28.2 L Mean Corpuscular Volume 96.9 Mean Corpuscular Hemoglobin 30.9 Mean Corpuscular Hemoglobin Concent 31.9 L Red Cell Distribution Width 13.1 Platelet Count 242 Mean Platelet Volume 10.3 Neutrophils % 78.5 H Lymphocytes % 9.9 L Monocytes % 10.4 Eosinophils % 0.4 Basophils % 0.2 Nucleated Red Blood Cells % 0.0 Neutrophils # 6.3 Lymphocytes # 0.8 Monocytes # 0.8 Eosinophils # 0.0 Basophils # 0.0 Nucleated Red Blood Cells # 0.0 Sodium Level 144 Potassium Level 3.9 Chloride Level 109 Carbon Dioxide Level 27 Anion Gap 12 Blood Urea Nitrogen 54 H Creatinine 3.87 H Glucose Level 200 Calcium Level 9.0 Total Bilirubin 0.2 Direct Bilirubin 0.00 Indirect Bilirubin 0.2 Aspartate Amino Transf (AST/SGOT) 21 Alanine Aminotransferase (ALT/SGPT) 27 Alkaline Phosphatase 70 Total Protein 7.0 Albumin 3.3 Globulin 3.70 H Albumin/Globulin Ratio 0.89 Bedside Glucose 205 Medications Medications Current Medications Ondansetron HCl (Zofran Inj) 4 mg Q6H PRN IV NAUSEA AND/OR VOMITING Last administered on 12/13/16 01:13; Admin Dose 4 MG; Start 12/02/16 at 22:30 Miscellaneous Information 1 ea NOTE XX ; Start 12/02/16 at 23:00 Glucose (Glutose) 15 gm Q15M PRN PO DECREASED GLUCOSE; Start 12/02/16 at 23:00 Glucose (Glutose) 22.5 gm Q15M PRN PO DECREASED GLUCOSE; Start 12/02/16 at 23: 00 Dextrose (D50w Syringe) 25 ml Q15M PRN IV DECREASED GLUCOSE Last administered on 12/10/16 05:52; Admin Dose 25 ML; Start 12/02/16 at 23:00 Dextrose (D50w Syringe) 50 ml Q15M PRN IV DECREASED GLUCOSE; Start 12/02/16 at 23:00 Glucagon (Glucagen) 1 mg Q15M PRN IM DECREASED GLUCOSE; Start 12/02/16 at 23:00 Glucose (Glutose) 15 gm Q15M PRN BUCCAL DECREASED GLUCOSE; Start 12/02/16 at 23 :00 Gabapentin (Neurontin) 800 mg TID PO Last administered on 12/08/16 20:33; Admin Dose 800 MG; Start 12/03/16 at 09:00; Status Future Hold Meclizine HCl (Antivert) 25 mg TID PRN PO dizziness Last administered on 09:37; Admin Dose 25 MG; Start 12/02/16 at 23:00 Terazosin HCl (Hytrin) 5 mg HS PO Last administered on 12/07/16 20:28; Admin Dose 5 MG; Start 12/03/16 at 21:00; Status Future Hold Acetaminophen/ Hydrocodone Bitart ([place] (5/325)) 1 tab Q6H PRN PO PAIN LEVEL 4 -7 Last administered on 12/23/16 22:14; Admin Dose 1 TAB; Start 12/02/16 at 23: 30 Acetaminophen (Tylenol Tab) 650 mg Q6H PRN PO PAIN AND OR ELEVATED TEMP Last administered on 01/10/17 00:37; Admin Dose 650 MG; Start 12/02/16 at 23:30 Docusate Sodium (Colace) 100 mg BID PO Last administered on 12/08/16 20:32; Admin Dose 100 MG; Start 12/03/16 at 09:00; Status Future Hold Zolpidem Tartrate (Ambien) 5 mg HS PRN PO INSOMNIA Last administered on 20:53; Admin Dose 5 MG; Start 12/02/16 at 23:30 Benazepril HCl (Lotensin) 10 mg DAILY PO Last administered on 12/07/16 08:26; Admin Dose 10 MG; Start 12/04/16 at 09:00; Status Future Hold Morphine Sulfate (morphine) 2 mg Q2H PRN IV PAIN Last administered on 12/20/16 03:22; Admin Dose 2 MG; Start 12/09/16 at 09:30 Acetaminophen (Tylenol Supp) 650 mg Q6H PRN [place] ELEVATED TEMPERATURE Last administered on 12/09/16 17:53; Admin Dose 650 MG; Start 12/09/16 at 17:00 Metoprolol Tartrate (Lopressor) 5 mg Q4H PRN IV HR>100 Last administered on 22:23; Admin Dose 5 MG; Start 12/09/16 at 17:48 Hydralazine HCl (Apresoline) 10 mg Q6H PRN IV SBP>150mm hg Last administered on 12/19/16 08:50; Admin Dose 10 MG; Start 12/11/16 at 10:30 Morphine Sulfate (morphine) 2 mg Q2H PRN IV PAIN LEVEL 4-7; Start 12/13/16 at 10 :00 Pantoprazole (Protonix Tab) 40 mg DAILY@06 PO Last administered on 01/11/17 06 :04; Admin Dose 40 MG; Start 12/23/16 at 06:00 Aspirin (Halfprin) 81 mg DAILY PO Last administered on 01/10/17 09:09; Admin Dose 81 MG; Start 12/31/16 at 09:00 Apixaban (Eliquis) 2.5 mg BID PO Last administered on 01/10/17 20:19; Admin Dose 2.5 MG; Start 12/30/16 at 21:00 Amiodarone HCl (Cordarone) 200 mg DAILY PO Last administered on 01/10/17 09:10 ; Admin Dose 200 MG; Start 12/31/16 at 09:00 Collagenase 1 applic 1 applic DAILY TOP Last administered on 01/10/17 09:10; Admin Dose 1 APPLIC; Start 01/04/17 at 09:00 Propofol 100 ml @ 2.544 mls/ hr Q12H IV Last administered on 01/08/17 04:00; Admin Dose 2.544 MLS/HR; Start 01/08/17 at 04:00 Meropenem 100 ml @ 200 mls/hr Q24H IVPB Last administered on 01/10/17 20:19; Admin Dose 200 MLS/HR; Start 01/08/17 at 21:00 Linezolid (Zyvox 600mg/D5W (Pmx)) 300 ml @ 300 mls/hr Q12 IVPB Last administered on 01/10/17 20:18; Admin Dose 300 MLS/HR; Start 01/08/17 at 18:00 Insulin Aspart (Novolog Insulin Pen) NOVOLOG *MODERATE* ALGORI... Q4 SC Last administered on 01/11/17 06:06; Admin Dose 4 UNIT; Start 01/09/17 at 14:15 Diagnostic Test (Pha) (Accu-Chek) 1 ea 02 XX ; Start 01/10/17 at 02:00 Metoprolol Tartrate (Lopressor) 100 mg BID PO Last administered on 01/10/17 20 :19; Admin Dose 100 MG; Start 01/09/17 at 14:00 Insulin Glargine (Lantus) 25 unit DAILY@20 SC Last administered on 01/10/17 20 :22; Admin Dose 25 UNIT; Start 01/10/17 at 20:00 IKE MULLER January 11, 2017 09:37
[2017-01-11] MEDS: LINEZOLID 600 MG/D5W (PMX) 300 ML IVPB SCH ×2 (09:54→20:33)
[2017-01-11] MEDS: AMIODARONE 200 MG TAB PO SCH (09:55)
[2017-01-11] MEDS: METOPROLOL 100 MG TAB PO SCH ×2 (09:55→20:35)
[2017-01-11] MEDS: ASPIRIN (EC) 81 MG TAB PO SCH (09:55)
[2017-01-11] MEDS: APIXABAN 5 MG TABLET PO SCH ×2 (09:55→20:35)
[2017-01-11] MEDS: COLLAGENASE 30 GM TUBE TOP SCH (09:56)
--- NOTE | 2017-01-11 10:39 | CONS ---
Date/Time of Note Date/Time of Note DATE: 01/11/17 TIME: 10:31 Assessment/Plan Assessment/Plan Additional Assessment/Plan 1. Atrial fibrillation-most recently in SR with PAC/PVC when on tele and by ECG 01/07 today - in sinus now, con't Rx. 2. Hypotension- BP in good range now. 3. Abnormal electrocardiogram with inferolateral T-wave inversions. 4. Respiratory failure-s/p intubation and remains - now intubated. 5. Nonhealing toe ulceration-vascular following 6. Peripheral arterial disease by arterial ultrasound of the lower extremities this admission. 7. Diabetes mellitus- on insulin Rx 8. Fevers- on anti-Bx now 9. Positive troponin-downtrended 10.Bradycardia-improved/stable - better now 11.-severe by echo - stable by exam. 12.Cardiomyopathy-EF 40-45% by echo/36% by stress with no ischemia but positive scar Consultation Date/Type/Reason Admit Date/Time Dec 02, 2016 at 21:01 Initial Consult Date 12/03/16 Type of Consultation: Pulmonary/critical care Referring Provider: VIET PARKER MD 24 HR Interval Summary Free Text/Dictation No acute change - still critically, minimally responsive. BP stable. ROS: No fever, no chills, no nausea, no vomiting, no diarrhea/constipation No recent weight changes No chest pain, no PND, no orthopnea No dizziness, blurred vision No thirst, no heat or cold intolerance (per nurse) Exam/Review of Systems Vital Signs Vitals Vital Signs Date Time Temp Pulse Resp B/P Pulse Ox O2 Delivery O2 Flow Rate FiO2 01/11/17 09:00 74 17 133/56 100 Mechanical Ventilator 01/11/17 08:00 98.8 01/11/17 05:36 40 01/07/17 14:56 2.0 Intake and Output 01/10/17 01/10/17 01/11/17 15:00 23:00 07:00 Intake Total 420 ml 180 ml 180 ml Output Total 275 ml 150 ml Balance 420 ml -95 ml 30 ml Exam General: WN/WD/NAD, AOx 0 HEENT: Unicetric/atraumatic/EOMI (does not follow commands) NECK: JVD elevated, no thyromegaly, intubated Lymph: no lymphadenopathy HEART: regular with no S3, II/ systolic murmur at apex, PMi L LUNGS: Coarse sounds ABD: soft, NT, ND, +BS : Intact Neuro: non focal SKIN: chronic changes EXT: trace edema Results Result Diagram: 01/11/17 0545 01/11/17 0545 Results 24 hrs Laboratory Tests Test 01/10/17 13:12 01/10/17 17:42 01/10/17 20:16 01/11/17 00:59 Bedside Glucose 264 H 206 187 224 H Test 01/11/17 05:45 01/11/17 06:03 01/11/17 10:04 White Blood Count 8.1 Red Blood Count 2.91 L Hemoglobin 9.0 L Hematocrit 28.2 L Mean Corpuscular Volume 96.9 Mean Corpuscular Hemoglobin 30.9 Mean Corpuscular Hemoglobin Concent 31.9 L Red Cell Distribution Width 13.1 Platelet Count 242 Mean Platelet Volume 10.3 Neutrophils % 78.5 H Lymphocytes % 9.9 L Monocytes % 10.4 Eosinophils % 0.4 Basophils % 0.2 Nucleated Red Blood Cells % 0.0 Neutrophils # 6.3 Lymphocytes # 0.8 Monocytes # 0.8 Eosinophils # 0.0 Basophils # 0.0 Nucleated Red Blood Cells # 0.0 Sodium Level 144 Potassium Level 3.9 Chloride Level 109 Carbon Dioxide Level 27 Anion Gap 12 Blood Urea Nitrogen 54 H Creatinine 3.87 H Glucose Level 200 Calcium Level 9.0 Total Bilirubin 0.2 Direct Bilirubin 0.00 Indirect Bilirubin 0.2 Aspartate Amino Transf (AST/SGOT) 21 Alanine Aminotransferase (ALT/SGPT) 27 Alkaline Phosphatase 70 Total Protein 7.0 Albumin 3.3 Globulin 3.70 H Albumin/Globulin Ratio 0.89 Bedside Glucose 205 220 Medications Medications Current Medications Ondansetron HCl (Zofran Inj) 4 mg Q6H PRN IV NAUSEA AND/OR VOMITING Last administered on 12/13/16 01:13; Admin Dose 4 MG; Start 12/02/16 at 22:30 Miscellaneous Information 1 ea NOTE XX ; Start 12/02/16 at 23:00 Glucose (Glutose) 15 gm Q15M PRN PO DECREASED GLUCOSE; Start 12/02/16 at 23:00 Glucose (Glutose) 22.5 gm Q15M PRN PO DECREASED GLUCOSE; Start 12/02/16 at 23: 00 Dextrose (D50w Syringe) 25 ml Q15M PRN IV DECREASED GLUCOSE Last administered on 12/10/16 05:52; Admin Dose 25 ML; Start 12/02/16 at 23:00 Dextrose (D50w Syringe) 50 ml Q15M PRN IV DECREASED GLUCOSE; Start 12/02/16 at 23:00 Glucagon (Glucagen) 1 mg Q15M PRN IM DECREASED GLUCOSE; Start 12/02/16 at 23:00 Glucose (Glutose) 15 gm Q15M PRN BUCCAL DECREASED GLUCOSE; Start 12/02/16 at 23 :00 Gabapentin (Neurontin) 800 mg TID PO Last administered on 12/08/16 20:33; Admin Dose 800 MG; Start 12/03/16 at 09:00; Status Future Hold Meclizine HCl (Antivert) 25 mg TID PRN PO dizziness Last administered on 09:37; Admin Dose 25 MG; Start 12/02/16 at 23:00 Terazosin HCl (Hytrin) 5 mg HS PO Last administered on 12/07/16 20:28; Admin Dose 5 MG; Start 12/03/16 at 21:00; Status Future Hold Acetaminophen/ Hydrocodone Bitart ([place] (5/325)) 1 tab Q6H PRN PO PAIN LEVEL 4 -7 Last administered on 12/23/16 22:14; Admin Dose 1 TAB; Start 12/02/16 at 23: 30 Acetaminophen (Tylenol Tab) 650 mg Q6H PRN PO PAIN AND OR ELEVATED TEMP Last administered on 01/10/17 00:37; Admin Dose 650 MG; Start 12/02/16 at 23:30 Docusate Sodium (Colace) 100 mg BID PO Last administered on 12/08/16 20:32; Admin Dose 100 MG; Start 12/03/16 at 09:00; Status Future Hold Zolpidem Tartrate (Ambien) 5 mg HS PRN PO INSOMNIA Last administered on 20:53; Admin Dose 5 MG; Start 12/02/16 at 23:30 Benazepril HCl (Lotensin) 10 mg DAILY PO Last administered on 12/07/16 08:26; Admin Dose 10 MG; Start 12/04/16 at 09:00; Status Future Hold Morphine Sulfate (morphine) 2 mg Q2H PRN IV PAIN Last administered on 12/20/16 03:22; Admin Dose 2 MG; Start 12/09/16 at 09:30 Acetaminophen (Tylenol Supp) 650 mg Q6H PRN HI ELEVATED TEMPERATURE Last administered on 12/09/16 17:53; Admin Dose 650 MG; Start 12/09/16 at 17:00 Metoprolol Tartrate (Lopressor) 5 mg Q4H PRN IV HR>100 Last administered on 22:23; Admin Dose 5 MG; Start 12/09/16 at 17:48 Hydralazine HCl (Apresoline) 10 mg Q6H PRN IV SBP>150mm hg Last administered on 12/19/16 08:50; Admin Dose 10 MG; Start 12/11/16 at 10:30 Morphine Sulfate (morphine) 2 mg Q2H PRN IV PAIN LEVEL 4-7; Start 12/13/16 at 10 :00 Pantoprazole (Protonix Tab) 40 mg DAILY@06 PO Last administered on 01/11/17 06 :04; Admin Dose 40 MG; Start 12/23/16 at 06:00 Aspirin (Halfprin) 81 mg DAILY PO Last administered on 01/11/17 09:55; Admin Dose 81 MG; Start 12/31/16 at 09:00 Apixaban (Eliquis) 2.5 mg BID PO Last administered on 01/11/17 09:55; Admin Dose 2.5 MG; Start 12/30/16 at 21:00 Amiodarone HCl (Cordarone) 200 mg DAILY PO Last administered on 01/11/17 09:55 ; Admin Dose 200 MG; Start 12/31/16 at 09:00 Collagenase 1 applic 1 applic DAILY TOP Last administered on 01/11/17 09:56; Admin Dose 1 APPLIC; Start 01/04/17 at 09:00 Propofol 100 ml @ 2.544 mls/ hr Q12H IV Last administered on 01/08/17 04:00; Admin Dose 2.544 MLS/HR; Start 01/08/17 at 04:00 Meropenem 100 ml @ 200 mls/hr Q24H IVPB Last administered on 01/10/17 20:19; Admin Dose 200 MLS/HR; Start 01/08/17 at 21:00 Linezolid (Zyvox 600mg/D5W (Pmx)) 300 ml @ 300 mls/hr Q12 IVPB Last administered on 01/11/17 09:54; Admin Dose 300 MLS/HR; Start 01/08/17 at 18:00 Insulin Aspart (Novolog Insulin Pen) NOVOLOG *MODERATE* ALGORI... Q4 SC Last administered on 01/11/17 10:06; Admin Dose 4 UNIT; Start 01/09/17 at 14:15 Diagnostic Test (Pha) (Accu-Chek) 1 ea 02 XX ; Start 01/10/17 at 02:00 Metoprolol Tartrate (Lopressor) 100 mg BID PO Last administered on 01/11/17 09 :55; Admin Dose 100 MG; Start 01/09/17 at 14:00 Insulin Glargine (Lantus) 25 unit DAILY@20 SC Last administered on 01/10/17 20 :22; Admin Dose 25 UNIT; Start 01/10/17 at 20:00 DAVE NICOLE MD January 11, 2017 10:39
--- NOTE | 2017-01-11 12:26 | PN ---
DATE: 01/11/2017 SUBJECTIVE: Follow up on 66-year-old gentleman status post cardiopulmonary arrest. The patient had it on 01/08/2017 at 1:42 a.m. Patient is currently orally intubated on ventilatory support with mi nimally responsive with no sedation. OBJECTIVE VITAL SIGNS: Temperature 98.8, pulse 74, blood pressure 133/56, respiratory rate 17, oxygen saturat ion is 100% on 40% FIO2. GENERAL: The patient is orally intubated on ventilatory support, responsive only to painful stimuli , does not follow any commands. Pupils sluggishly reactive. HEENT: Head is atraumatic, normocephalic. LUNGS: Diminished at the bases. No rhonchi or wheezes noted. HEART: Normal S1, S2. Patient had systolic murmur. ABDOMEN: Round, soft, nondistended. Bowel sounds present. EXTREMITIES: No edema. LABORATORY AND DIAGNOSTIC DATA FOR TODAY: CBC: White blood cells 8.1, hemoglobin 9.0, hematocrit 2 8.2, platelets 242. Chemistry: Sodium is 144, potassium 3.9, chloride 109, carbon dioxide 27, anio n gap 12, BUN is 54, creatinine 3.87, glucose 200, calcium 9.0. ASSESSMENT AND PLAN: 1. Status post cardiopulmonary arrest. Continue ventilatory support. Dr. Rivera is following in pu lmonology consultation, Dr. Cobian is following in cardiology consultation. The patient underwent a brain CT which is negative for any intracranial hemorrhage, mass or acute infarct. 2. Rule out acute stroke. Will ask Dr. Natarajan to see patient in neurology consultation. 3. Acute kidney injury secondary to acute tubular necrosis. The patient is followed by Dr. Jonel lew nephrology consultation. Continue dialysis. 4. Possible healthcare-acquired pneumonia. The patient is currently on broad spectrum antibiotics followed by Dr. Wilson's group in infectious disease consultation. 5. Diabetes mellitus, with hemoglobin A1c 8.7. Continue Lantus and NovoLog with Accu-Cheks q.4h. 6. Cardiomyopathy with ejection fraction of 36 by stress with no ischemia. 7. Peripheral arterial disease. 8. Diabetic foot ulcer of the left foot. Dr. Lin following in podiatry consultation. 9. Paroxysmal atrial fibrillation. The patient is currently on Eliquis. 10. Continue Protonix for peptic ulcer disease prophylaxis. 11. Further recommendations based on clinical course. Plan of care discussed with Dr. Parker. Dictated By: KIMBERLY NOYOLA CONE MARKER for VIET PARKER MD SR/NTS Conf#: [id number] DID#: [id number]
--- NOTE | 2017-01-11 13:23 | CONS ---
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 Blood cultures from HD catheter on 12/13/2016 are negative to date. 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 MRI on 12/06/2016 and bone scan on showed 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 and left fourth proximal phalanx. superficial swab grew inna only - s/p right pleural effusion s/p thoracentesis with .9L removed on 12/16/2016; ( Note: there is no pleural fluid cx since orders were placed after Right thoracentesis, and Left thoracentesis was not performed on 12/17/16 d/t insufficient fluid) - s/p funguria - ARANZA, on HD from 12/09/2016 - oliguria - A fib - small nonreversible perfusion abnormality in the inferoapical and inferior carver; EF 36% per Lexiscan 12/24/2016 - severe , EF 40-45% per TTE 12/17/16 - DM - Hgb A1c 8.7% - HTN associated with DM - recurrent episodes of respiratory failure - acute encephalopathy with likely anoxic brain injury recommendations: - solorzano cultures; collect urinalysis and urine culture of sufficient urine is collected - continue meropenem and linezolid empirically - will adjust his antibiotics depending on his culture results and his clinical status - ultimately, Pt needs 6 weeks of antibiotics to treat 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 and left fourth proximal phalanx: 12/03/2016 through 01/15/2017 (s/p pip/tazo 12/03/16-01/08/17) management d/w Pt's and RN the critical care time I took to care for this Pt today was from 1210 to 1250 Problems: Consultation Date/Type/Reason Admit Date/Time Dec 02, 2016 at 21:01 Initial Consult Date 12/03/16 Type of Consultation: ID Referring Provider: VIET PARKER MD 24 HR Interval Summary Subjective hx not possible: pt non-verbal Exam/Review of Systems Vital Signs Vitals Vital Signs Date Time Temp Pulse Resp B/P Pulse Ox O2 Delivery O2 Flow Rate FiO2 01/11/17 12:00 65 01/11/17 12:00 40 01/11/17 09:00 17 133/56 100 Mechanical Ventilator 01/11/17 08:00 98.8 01/07/17 14:56 2.0 Intake and Output 01/10/17 01/10/17 01/11/17 15:00 23:00 07:00 Intake Total 420 ml 180 ml 180 ml Output Total 275 ml 150 ml Balance 420 ml -95 ml 30 ml Exam Constitutional: non-verbal Psych: confusion Head: atraumatic, normocephalic Eyes: nl conjunctiva, nl lids, nl sclera ENMT: intubated, nl external ears & nose, other (NGT) Respiratory: crackles/rales Cardiovascular: nl pulses, regular rate and rhythm Gastrointestinal: non-tender, soft Genitourinary - Male: other (FC) Musculoskeletal: nl extremities to inspection Extremities: No edema Neurological: lethargic Skin: rash or lesions (eschar on plantar L 1st toe, no discharge, no erythema) Results Result Diagram: 01/11/17 0545 01/11/17 0545 Results 24 hrs Laboratory Tests Test 01/10/17 17:42 01/10/17 20:16 01/11/17 00:59 01/11/17 05:45 Bedside Glucose 206 187 224 H White Blood Count 8.1 Red Blood Count 2.91 L Hemoglobin 9.0 L Hematocrit 28.2 L Mean Corpuscular Volume 96.9 Mean Corpuscular Hemoglobin 30.9 Mean Corpuscular Hemoglobin Concent 31.9 L Red Cell Distribution Width 13.1 Platelet Count 242 Mean Platelet Volume 10.3 Neutrophils % 78.5 H Lymphocytes % 9.9 L Monocytes % 10.4 Eosinophils % 0.4 Basophils % 0.2 Nucleated Red Blood Cells % 0.0 Neutrophils # 6.3 Lymphocytes # 0.8 Monocytes # 0.8 Eosinophils # 0.0 Basophils # 0.0 Nucleated Red Blood Cells # 0.0 Sodium Level 144 Potassium Level 3.9 Chloride Level 109 Carbon Dioxide Level 27 Anion Gap 12 Blood Urea Nitrogen 54 H Creatinine 3.87 H Glucose Level 200 Calcium Level 9.0 Total Bilirubin 0.2 Direct Bilirubin 0.00 Indirect Bilirubin 0.2 Aspartate Amino Transf (AST/SGOT) 21 Alanine Aminotransferase (ALT/SGPT) 27 Alkaline Phosphatase 70 Total Protein 7.0 Albumin 3.3 Globulin 3.70 H Albumin/Globulin Ratio 0.89 Test 01/11/17 06:03 01/11/17 10:04 Bedside Glucose 205 220 Medications Medications Current Medications Ondansetron HCl (Zofran Inj) 4 mg Q6H PRN IV NAUSEA AND/OR VOMITING Last administered on 12/13/16 01:13; Admin Dose 4 MG; Start 12/02/16 at 22:30 Miscellaneous Information 1 ea NOTE XX ; Start 12/02/16 at 23:00 Glucose (Glutose) 15 gm Q15M PRN PO DECREASED GLUCOSE; Start 12/02/16 at 23:00 Glucose (Glutose) 22.5 gm Q15M PRN PO DECREASED GLUCOSE; Start 12/02/16 at 23: 00 Dextrose (D50w Syringe) 25 ml Q15M PRN IV DECREASED GLUCOSE Last administered on 12/10/16 05:52; Admin Dose 25 ML; Start 12/02/16 at 23:00 Dextrose (D50w Syringe) 50 ml Q15M PRN IV DECREASED GLUCOSE; Start 12/02/16 at 23:00 Glucagon (Glucagen) 1 mg Q15M PRN IM DECREASED GLUCOSE; Start 12/02/16 at 23:00 Glucose (Glutose) 15 gm Q15M PRN BUCCAL DECREASED GLUCOSE; Start 12/02/16 at 23 :00 Gabapentin (Neurontin) 800 mg TID PO Last administered on 12/08/16 20:33; Admin Dose 800 MG; Start 12/03/16 at 09:00; Status Future Hold Meclizine HCl (Antivert) 25 mg TID PRN PO dizziness Last administered on 09:37; Admin Dose 25 MG; Start 12/02/16 at 23:00 Terazosin HCl (Hytrin) 5 mg HS PO Last administered on 12/07/16 20:28; Admin Dose 5 MG; Start 12/03/16 at 21:00; Status Future Hold Acetaminophen/ Hydrocodone Bitart ([place] (5/325)) 1 tab Q6H PRN PO PAIN LEVEL 4 -7 Last administered on 12/23/16 22:14; Admin Dose 1 TAB; Start 12/02/16 at 23: 30 Acetaminophen (Tylenol Tab) 650 mg Q6H PRN PO PAIN AND OR ELEVATED TEMP Last administered on 01/10/17 00:37; Admin Dose 650 MG; Start 12/02/16 at 23:30 Docusate Sodium (Colace) 100 mg BID PO Last administered on 12/08/16 20:32; Admin Dose 100 MG; Start 12/03/16 at 09:00; Status Future Hold Zolpidem Tartrate (Ambien) 5 mg HS PRN PO INSOMNIA Last administered on 20:53; Admin Dose 5 MG; Start 12/02/16 at 23:30 Benazepril HCl (Lotensin) 10 mg DAILY PO Last administered on 12/07/16 08:26; Admin Dose 10 MG; Start 12/04/16 at 09:00; Status Future Hold Morphine Sulfate (morphine) 2 mg Q2H PRN IV PAIN Last administered on 12/20/16 03:22; Admin Dose 2 MG; Start 12/09/16 at 09:30 Acetaminophen (Tylenol Supp) 650 mg Q6H PRN [place] ELEVATED TEMPERATURE Last administered on 12/09/16 17:53; Admin Dose 650 MG; Start 12/09/16 at 17:00 Metoprolol Tartrate (Lopressor) 5 mg Q4H PRN IV HR>100 Last administered on 22:23; Admin Dose 5 MG; Start 12/09/16 at 17:48 Hydralazine HCl (Apresoline) 10 mg Q6H PRN IV SBP>150mm hg Last administered on 12/19/16 08:50; Admin Dose 10 MG; Start 12/11/16 at 10:30 Morphine Sulfate (morphine) 2 mg Q2H PRN IV PAIN LEVEL 4-7; Start 12/13/16 at 10 :00 Pantoprazole (Protonix Tab) 40 mg DAILY@06 PO Last administered on 01/11/17 06 :04; Admin Dose 40 MG; Start 12/23/16 at 06:00 Aspirin (Halfprin) 81 mg DAILY PO Last administered on 01/11/17 09:55; Admin Dose 81 MG; Start 12/31/16 at 09:00 Apixaban (Eliquis) 2.5 mg BID PO Last administered on 01/11/17 09:55; Admin Dose 2.5 MG; Start 12/30/16 at 21:00 Amiodarone HCl (Cordarone) 200 mg DAILY PO Last administered on 01/11/17 09:55 ; Admin Dose 200 MG; Start 12/31/16 at 09:00 Collagenase 1 applic 1 applic DAILY TOP Last administered on 01/11/17 09:56; Admin Dose 1 APPLIC; Start 01/04/17 at 09:00 Propofol 100 ml @ 2.544 mls/ hr Q12H IV Last administered on 01/08/17 04:00; Admin Dose 2.544 MLS/HR; Start 01/08/17 at 04:00 Meropenem 100 ml @ 200 mls/hr Q24H IVPB Last administered on 01/10/17 20:19; Admin Dose 200 MLS/HR; Start 01/08/17 at 21:00 Linezolid (Zyvox 600mg/D5W (Pmx)) 300 ml @ 300 mls/hr Q12 IVPB Last administered on 01/11/17 09:54; Admin Dose 300 MLS/HR; Start 01/08/17 at 18:00 Insulin Aspart (Novolog Insulin Pen) NOVOLOG *MODERATE* ALGORI... Q4 SC Last administered on 01/11/17 10:06; Admin Dose 4 UNIT; Start 01/09/17 at 14:15 Diagnostic Test (Pha) (Accu-Chek) 1 ea 02 XX ; Start 01/10/17 at 02:00 Metoprolol Tartrate (Lopressor) 100 mg BID PO Last administered on 01/11/17 09 :55; Admin Dose 100 MG; Start 01/09/17 at 14:00 Insulin Glargine (Lantus) 25 unit DAILY@20 SC Last administered on 01/10/17 20 :22; Admin Dose 25 UNIT; Start 01/10/17 at 20:00 CHRISTY LOPEZ M.D. January 11, 2017 13:23
--- NOTE | 2017-01-11 15:24 | CONS ---
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 Blood cultures from HD catheter on 12/13/2016 are negative to date. 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 MRI on 12/06/2016 and bone scan on showed 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 and left fourth proximal phalanx. superficial swab grew inna only - s/p right pleural effusion s/p thoracentesis with .9L removed on 12/16/2016 - severe , EF 40-45% per TTE 12/17/16 - DM - Hgb A1c 8.7% - HTN associated with DM Plan: plan for HD today, pt has permacath in place ID following for IV abx Cardiology also following on patient will check CXR in AM and also plan for HD tomorrow if he is volume overloaded pt has severe , very labile BP sometimes with HD will continue to follow up on patient Consultation Date/Type/Reason Admit Date/Time Dec 02, 2016 at 21:01 Initial Consult Date Type of Consultation: NEPHROLOGY Referring Provider: VIET PARKER MD 24 HR Interval Summary Free Text/Dictation BP stable, afebrile Exam/Review of Systems Vital Signs Vitals Vital Signs Date Time Temp Pulse Resp B/P Pulse Ox O2 Delivery O2 Flow Rate FiO2 01/11/17 12:00 65 01/11/17 12:00 40 01/11/17 11:40 16 100 01/11/17 09:00 133/56 Mechanical Ventilator 01/11/17 08:00 98.8 01/07/17 14:56 2.0 Intake and Output 01/10/17 01/10/17 01/11/17 15:00 23:00 07:00 Intake Total 420 ml 180 ml 180 ml Output Total 275 ml 150 ml Balance 420 ml -95 ml 30 ml Exam General: intubated, sedated HEENT: Et tube in place NECK: JVD elevated, no thyromegaly, intubated HEART: regular with no S3, II/ systolic murmur at apex, PMi L LUNGS: Coarse sounds ABD: soft, NT, ND, +BS Neuro: non focal SKIN: chronic changes EXT: trace edema Results Result Diagram: 01/11/17 0545 01/11/1745 Results 24 hrs Laboratory Tests Test 01/10/17 17:42 01/10/17 20:16 01/11/17 00:59 01/11/17 05:45 Bedside Glucose 206 187 224 H White Blood Count 8.1 Red Blood Count 2.91 L Hemoglobin 9.0 L Hematocrit 28.2 L Mean Corpuscular Volume 96.9 Mean Corpuscular Hemoglobin 30.9 Mean Corpuscular Hemoglobin Concent 31.9 L Red Cell Distribution Width 13.1 Platelet Count 242 Mean Platelet Volume 10.3 Neutrophils % 78.5 H Lymphocytes % 9.9 L Monocytes % 10.4 Eosinophils % 0.4 Basophils % 0.2 Nucleated Red Blood Cells % 0.0 Neutrophils # 6.3 Lymphocytes # 0.8 Monocytes # 0.8 Eosinophils # 0.0 Basophils # 0.0 Nucleated Red Blood Cells # 0.0 Sodium Level 144 Potassium Level 3.9 Chloride Level 109 Carbon Dioxide Level 27 Anion Gap 12 Blood Urea Nitrogen 54 H Creatinine 3.87 H Glucose Level 200 Calcium Level 9.0 Total Bilirubin 0.2 Direct Bilirubin 0.00 Indirect Bilirubin 0.2 Aspartate Amino Transf (AST/SGOT) 21 Alanine Aminotransferase (ALT/SGPT) 27 Alkaline Phosphatase 70 Total Protein 7.0 Albumin 3.3 Globulin 3.70 H Albumin/Globulin Ratio 0.89 Test 01/11/17 06:03 01/11/17 10:04 01/11/17 14:00 Bedside Glucose 205 220 298 H Medications Medications Current Medications Ondansetron HCl (Zofran Inj) 4 mg Q6H PRN IV NAUSEA AND/OR VOMITING Last administered on 12/13/16t 01:13; Admin Dose 4 MG; Start 12/02/16 at 22:30 Miscellaneous Information 1 ea NOTE XX ; Start 12/02/16 at 23:00 Glucose (Glutose) 15 gm Q15M PRN PO DECREASED GLUCOSE; Start 12/02/16 at 23:00 Glucose (Glutose) 22.5 gm Q15M PRN PO DECREASED GLUCOSE; Start 12/02/16 at 23: 00 Dextrose (D50w Syringe) 25 ml Q15M PRN IV DECREASED GLUCOSE Last administered on 12/10/16 05:52; Admin Dose 25 ML; Start 12/02/16 at 23:00 Dextrose (D50w Syringe) 50 ml Q15M PRN IV DECREASED GLUCOSE; Start 12/02/16 at 23:00 Glucagon (Glucagen) 1 mg Q15M PRN IM DECREASED GLUCOSE; Start 12/02/16 at 23:00 Glucose (Glutose) 15 gm Q15M PRN BUCCAL DECREASED GLUCOSE; Start 12/02/16 at 23 :00 Gabapentin (Neurontin) 800 mg TID PO Last administered on 12/08/16 20:33; Admin Dose 800 MG; Start 12/03/16 at 09:00; Status Future Hold Meclizine HCl (Antivert) 25 mg TID PRN PO dizziness Last administered on 09:37; Admin Dose 25 MG; Start 12/02/16 at 23:00 Terazosin HCl (Hytrin) 5 mg HS PO Last administered on 12/07/16 20:28; Admin Dose 5 MG; Start 12/03/16 at 21:00; Status Future Hold Acetaminophen/ Hydrocodone Bitart ([place] (5/325)) 1 tab Q6H PRN PO PAIN LEVEL 4 -7 Last administered on 12/23/16 22:14; Admin Dose 1 TAB; Start 12/02/16 at 23: 30 Acetaminophen (Tylenol Tab) 650 mg Q6H PRN PO PAIN AND OR ELEVATED TEMP Last administered on 01/10/17 00:37; Admin Dose 650 MG; Start 12/02/16 at 23:30 Docusate Sodium (Colace) 100 mg BID PO Last administered on 12/08/16 20:32; Admin Dose 100 MG; Start 12/03/16 at 09:00; Status Future Hold Zolpidem Tartrate (Ambien) 5 mg HS PRN PO INSOMNIA Last administered on 20:53; Admin Dose 5 MG; Start 12/02/16 at 23:30 Benazepril HCl (Lotensin) 10 mg DAILY PO Last administered on 12/07/16 08:26; Admin Dose 10 MG; Start 12/04/16 at 09:00; Status Future Hold Morphine Sulfate (morphine) 2 mg Q2H PRN IV PAIN Last administered on 12/20/16 03:22; Admin Dose 2 MG; Start 12/09/16 at 09:30 Acetaminophen (Tylenol Supp) 650 mg Q6H PRN [place] ELEVATED TEMPERATURE Last administered on 12/09/16 17:53; Admin Dose 650 MG; Start 12/09/16 at 17:00 Metoprolol Tartrate (Lopressor) 5 mg Q4H PRN IV HR>100 Last administered on 22:23; Admin Dose 5 MG; Start 12/09/16 at 17:48 Hydralazine HCl (Apresoline) 10 mg Q6H PRN IV SBP>150mm hg Last administered on 12/19/16 08:50; Admin Dose 10 MG; Start 12/11/16 at 10:30 Morphine Sulfate (morphine) 2 mg Q2H PRN IV PAIN LEVEL 4-7; Start 12/13/16 at 10 :00 Pantoprazole (Protonix Tab) 40 mg DAILY@06 PO Last administered on 01/11/17 06 :04; Admin Dose 40 MG; Start 12/23/16 at 06:00 Aspirin (Halfprin) 81 mg DAILY PO Last administered on 01/11/17 09:55; Admin Dose 81 MG; Start 12/31/16 at 09:00 Apixaban (Eliquis) 2.5 mg BID PO Last administered on 01/11/17 09:55; Admin Dose 2.5 MG; Start 12/30/16 at 21:00 Amiodarone HCl (Cordarone) 200 mg DAILY PO Last administered on 01/11/17 09:55 ; Admin Dose 200 MG; Start 12/31/16 at 09:00 Collagenase 1 applic 1 applic DAILY TOP Last administered on 01/11/17 09:56; Admin Dose 1 APPLIC; Start 01/04/17 at 09:00 Propofol 100 ml @ 2.544 mls/ hr Q12H IV Last administered on 01/08/17 04:00; Admin Dose 2.544 MLS/HR; Start 01/08/17 at 04:00 Meropenem 100 ml @ 200 mls/hr Q24H IVPB Last administered on 01/10/17 20:19; Admin Dose 200 MLS/HR; Start 01/08/17 at 21:00 Linezolid (Zyvox 600mg/D5W (Pmx)) 300 ml @ 300 mls/hr Q12 IVPB Last administered on 01/11/17 09:54; Admin Dose 300 MLS/HR; Start 01/08/17 at 18:00 Insulin Aspart (Novolog Insulin Pen) NOVOLOG *MODERATE* ALGORI... Q4 SC Last administered on 01/11/17 14:03; Admin Dose 8 UNIT; Start 01/09/17 at 14:15 Diagnostic Test (Pha) (Accu-Chek) 1 ea 02 XX ; Start 01/10/17 at 02:00 Metoprolol Tartrate (Lopressor) 100 mg BID PO Last administered on 01/11/17 09 :55; Admin Dose 100 MG; Start 01/09/17 at 14:00 Insulin Glargine (Lantus) 25 unit DAILY@20 SC Last administered on 01/10/17 20 :22; Admin Dose 25 UNIT; Start 01/10/17 at 20:00 TASHIA MCGARRY MD January 11, 2017 15:24
[2017-01-11 17:38] LABS: ADD UMIC YES; UR BILIRUBIN (Dip) NEGATIVE (NEGATIVE); UR BLOOD (Dip) TRACE (NEGATIVE); UR COLOR LT. YELLOW (YELLOW); UR GLUCOSE (Dip) NEGATIVE (NEGATIVE); UR KETONES (Dip) NEGATIVE (NEGATIVE); UR LEUKOCYTE ESTERASE (Dip) 1+ (NEGATIVE); UR NITRITE (Dip) NEGATIVE (NEGATIVE); UR TOTAL PROTEIN (Dip) TRACE (NEGATIVE); UR UROBILINOGEN (Dip) 0.2 E.U./dL (0.1-1.0)
[2017-01-11 17:52] LABS: UR CLARITY HAZY (CLEAR)
[2017-01-11 17:53] LABS: UR BACTERIA FEW; UR SQUAMOUS EPITHELIAL CELL RARE; URINE RBCS 0-2 /HPF (0)
[2017-01-11] MEDS: MEROPENEM 500 MG/100 ML (PMX) 100 ML IVPB SCH (20:32)
[2017-01-11] MEDS: INSULIN GLARGINE [LANtus] 3 ML PEN SC SCH (20:37)
[2017-01-12] VITALS (52 sets, daily range): BP systolic 85–142; BP diastolic 35–76; PULSE 66–117; RESP 14–22
[2017-01-12] MEDS: INSULIN ASPART [NOVOLOG] 3 ML PEN SC SCH ×6 (01:25→21:31)
[2017-01-12] MEDS: ACCU-CHEK XX SCH (02:00)
[2017-01-12] MEDS: ALBUTEROL 18 GM INHALER INH SCH ×4 (02:16→21:33)
[2017-01-12] MEDS: PROPOFOL 100 ML IV SCH ×2 (03:14→16:00)
[2017-01-12] MEDS: PANTOPRAZOLE (EC) 40 MG TAB PO SCH (06:04)
[2017-01-12 06:12] LABS: ADD SCAN DIFF NO
[2017-01-12 06:15] LABS: BASOPHILS % 0.2 % (0.0-2.0); EOSINOPHILS % 0.1 % (0.0-7.0); HEMATOCRIT 29.5 % (42.0-52.0); LYMPHOCYTES # 0.9 10^3/ul (0.8-2.9); LYMPHOCYTES % 10.8 % (15.0-51.0); MEAN CORPUSCULAR HEMOGLOBIN 29.6 pg (29.0-33.0); MEAN CORPUSCULAR HGB CONC 30.5 g/dl (32.0-37.0); MEAN PLATELET VOLUME 10.4 fl (7.4-10.4); MONOCYTE # 0.8 10^3/ul (0.3-0.9); MONOCYTES % 9.8 % (0.0-11.0); NEUTROPHIL # 6.7 10^3/ul (1.6-7.5); NEUTROPHILS % 78.4 % (39.0-77.0); PLATELET COUNT 240 10^3/UL (140-415); RED BLOOD COUNT 3.04 10^6/ul (4.70-6.10); RED CELL DISTRIBUTION WIDTH 13.2 % (11.5-14.5); WHITE BLOOD COUNT 8.6 10^3/ul (4.8-10.8)
[2017-01-12 06:42] LABS: CALCIUM 8.8 mg/dl (8.4-10.2); CREATININE 3.17 mg/dl (0.61-1.24)
[2017-01-12] MEDS: LINEZOLID 600 MG/D5W (PMX) 300 ML IVPB SCH ×2 (08:56→21:05)
[2017-01-12] MEDS: APIXABAN 5 MG TABLET PO SCH ×2 (08:57→21:24)
[2017-01-12] MEDS: ASPIRIN (EC) 81 MG TAB PO SCH (08:57)
[2017-01-12] MEDS: AMIODARONE 200 MG TAB PO SCH (08:57)
[2017-01-12] MEDS: METOPROLOL 100 MG TAB PO SCH (08:58)
[2017-01-12] MEDS: COLLAGENASE 30 GM TUBE TOP SCH (09:00)
--- NOTE | 2017-01-12 09:07 | CONS ---
Date/Time of Note Date/Time of Note DATE: 01/12/17 TIME: 09:03 Assessment/Plan Assessment/Plan Chief Complaint/Hosp Course - recurrent cardiopulmonary arrest on 12/09/2016 and on 01/08/2017 - possible SIRS (lactic acidosis) - possible aspiration pneumonia based on CXR vs. 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 Blood cultures from HD catheter on 12/13/2016 are negative to date. 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 MRI on 12/06/2016 and bone scan on showed 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 and left fourth proximal phalanx. superficial swab grew inna only - s/p right pleural effusion s/p thoracentesis with .9L removed on 12/16/2016; ( Note: there is no pleural fluid cx since orders were placed after Right thoracentesis, and Left thoracentesis was not performed on 12/17/16 d/t insufficient fluid) - s/p funguria - ARANZA, on HD from 12/09/2016 - oliguria - A fib - small nonreversible perfusion abnormality in the inferoapical and inferior carver; EF 36% per Lexiscan 12/24/2016 - severe , EF 40-45% per TTE 12/17/16 - DM - Hgb A1c 8.7% - HTN associated with DM - recurrent episodes of respiratory failure - acute encephalopathy with likely anoxic brain injury recommendations: - pending results: urine culture, resp culture - ordered: surveillance blood cultures from HD catheter at time of HD today, CXR - continue meropenem and linezolid empirically (01/08/2017-) - restart caspofungin in light of low grade temp (01/12/2017-) - will adjust his antibiotics depending on his culture results and his clinical status - Pt needs 6 weeks of antibiotics to treat 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 and left fourth proximal phalanx: 12/03/2016 through 01/15/2017 (s/p pip/tazo 12/03/16-01/08/17) management d/w Pt's RN the critical care time I took to care for this Pt today was from 0830 to 0905 Problems: Consultation Date/Type/Reason Admit Date/Time Dec 02, 2016 at 21:01 Initial Consult Date 12/03/16 Type of Consultation: ID Referring Provider: VIET PARKER MD 24 HR Interval Summary Subjective hx not possible: pt non-verbal, pt critical, pt critical status Exam/Review of Systems Vital Signs Vitals Vital Signs Date Time Temp Pulse Resp B/P Pulse Ox O2 Delivery O2 Flow Rate FiO2 01/12/17 07:26 87 19 100 30 01/12/17 06:00 141/66 Mechanical Ventilator 01/12/17 04:00 99.8 Intake and Output 01/11/17 01/11/17 01/12/17 15:00 23:00 07:00 Intake Total 1050 ml 690 ml 310 ml Output Total 2575 ml 205 ml 110 ml Balance -1525 ml 485 ml 200 ml Exam Constitutional: non-verbal Head: atraumatic, normocephalic Eyes: nl conjunctiva, nl lids ENMT: intubated Respiratory: clear to auscultation, normal air movement Cardiovascular: nl pulses, regular rate and rhythm, systolic murmur Gastrointestinal: non-tender, soft Genitourinary - Male: nl penis, nl scrotum Musculoskeletal: nl extremities to inspection Extremities: No edema Neurological: lethargic Skin: rash or lesions (R plantar 1st toe, eschar, no change from previous, non- erythematous, non-draining, non-swollen) Results Result Diagram: 01/12/17 0542 01/12/17 0542 Results 24 hrs Laboratory Tests Test 01/11/17 10:04 01/11/17 13:50 01/11/17 14:00 01/11/17 18:29 Bedside Glucose 220 298 H 306 H Urine Color LT. YELLOW Urine Clarity HAZY Urine pH 5.5 Urine Specific [place] 1.015 Urine Ketones NEGATIVE Urine Nitrite NEGATIVE Urine Bilirubin NEGATIVE Urine Urobilinogen 0.2 E.U./dL Urine Leukocyte Esterase 1+ H Urine Microscopic RBC 0-2 Urine Microscopic WBC >50 Urine Squamous Epithelial Cells RARE Urine Bacteria FEW Urine Yeast MANY Urine Hemoglobin TRACE Urine Glucose NEGATIVE Urine Total Protein TRACE Test 01/11/17 20:31 01/12/17 01:19 01/12/17 05:42 01/12/17 06:00 Bedside Glucose 262 H 224 H 215 White Blood Count 8.6 Red Blood Count 3.04 L Hemoglobin 9.0 L Hematocrit 29.5 L Mean Corpuscular Volume 97.0 Mean Corpuscular Hemoglobin 29.6 Mean Corpuscular Hemoglobin Concent 30.5 L Red Cell Distribution Width 13.2 Platelet Count 240 Mean Platelet Volume 10.4 Neutrophils % 78.4 H Lymphocytes % 10.8 L Monocytes % 9.8 Eosinophils % 0.1 Basophils % 0.2 Nucleated Red Blood Cells % 0.0 Neutrophils # 6.7 Lymphocytes # 0.9 Monocytes # 0.8 Eosinophils # 0.0 Basophils # 0.0 Nucleated Red Blood Cells # 0.0 Sodium Level 144 Potassium Level 4.0 Chloride Level 109 Carbon Dioxide Level 28 Anion Gap 11 Blood Urea Nitrogen 55 H Creatinine 3.17 H Glucose Level 207 Calcium Level 8.8 Medications Medications Current Medications Ondansetron HCl (Zofran Inj) 4 mg Q6H PRN IV NAUSEA AND/OR VOMITING Last administered on 12/13/16 01:13; Admin Dose 4 MG; Start 12/02/16 at 22:30 Miscellaneous Information 1 ea NOTE XX ; Start 12/02/16 at 23:00 Glucose (Glutose) 15 gm Q15M PRN PO DECREASED GLUCOSE; Start 12/02/16 at 23:00 Glucose (Glutose) 22.5 gm Q15M PRN PO DECREASED GLUCOSE; Start 12/02/16 at 23: 00 Dextrose (D50w Syringe) 25 ml Q15M PRN IV DECREASED GLUCOSE Last administered on 12/10/16 05:52; Admin Dose 25 ML; Start 12/02/16 at 23:00 Dextrose (D50w Syringe) 50 ml Q15M PRN IV DECREASED GLUCOSE; Start 12/02/16 at 23:00 Glucagon (Glucagen) 1 mg Q15M PRN IM DECREASED GLUCOSE; Start 12/02/16 at 23:00 Glucose (Glutose) 15 gm Q15M PRN BUCCAL DECREASED GLUCOSE; Start 12/02/16 at 23 :00 Gabapentin (Neurontin) 800 mg TID PO Last administered on 12/08/16 20:33; Admin Dose 800 MG; Start 12/03/16 at 09:00; Status Future Hold Meclizine HCl (Antivert) 25 mg TID PRN PO dizziness Last administered on 09:37; Admin Dose 25 MG; Start 12/02/16 at 23:00 Terazosin HCl (Hytrin) 5 mg HS PO Last administered on 12/07/16 20:28; Admin Dose 5 MG; Start 12/03/16 at 21:00; Status Future Hold Acetaminophen/ Hydrocodone Bitart ([place] (5/325)) 1 tab Q6H PRN PO PAIN LEVEL 4 -7 Last administered on 12/23/16 22:14; Admin Dose 1 TAB; Start 12/02/16 at 23: 30 Acetaminophen (Tylenol Tab) 650 mg Q6H PRN PO PAIN AND OR ELEVATED TEMP Last administered on 01/10/17 00:37; Admin Dose 650 MG; Start 12/02/16 at 23:30 Docusate Sodium (Colace) 100 mg BID PO Last administered on 12/08/16 20:32; Admin Dose 100 MG; Start 12/03/16 at 09:00; Status Future Hold Zolpidem Tartrate (Ambien) 5 mg HS PRN PO INSOMNIA Last administered on 20:53; Admin Dose 5 MG; Start 12/02/16 at 23:30 Benazepril HCl (Lotensin) 10 mg DAILY PO Last administered on 12/07/16 08:26; Admin Dose 10 MG; Start 12/04/16 at 09:00; Status Future Hold Morphine Sulfate (morphine) 2 mg Q2H PRN IV PAIN Last administered on 12/20/16 03:22; Admin Dose 2 MG; Start 12/09/16 at 09:30 Acetaminophen (Tylenol Supp) 650 mg Q6H PRN [place] ELEVATED TEMPERATURE Last administered on 12/09/16 17:53; Admin Dose 650 MG; Start 12/09/16 at 17:00 Metoprolol Tartrate (Lopressor) 5 mg Q4H PRN IV HR>100 Last administered on 22:23; Admin Dose 5 MG; Start 12/09/16 at 17:48 Hydralazine HCl (Apresoline) 10 mg Q6H PRN IV SBP>150mm hg Last administered on 12/19/16 08:50; Admin Dose 10 MG; Start 12/11/16 at 10:30 Morphine Sulfate (morphine) 2 mg Q2H PRN IV PAIN LEVEL 4-7; Start 12/13/16 at 10 :00 Pantoprazole (Protonix Tab) 40 mg DAILY@06 PO Last administered on 01/12/17 06 :04; Admin Dose 40 MG; Start 12/23/16 at 06:00 Aspirin (Halfprin) 81 mg DAILY PO Last administered on 01/12/17 08:57; Admin Dose 81 MG; Start 12/31/16 at 09:00 Apixaban (Eliquis) 2.5 mg BID PO Last administered on 01/12/17 08:57; Admin Dose 2.5 MG; Start 12/30/16 at 21:00 Amiodarone HCl (Cordarone) 200 mg DAILY PO Last administered on 01/12/17 08:57 ; Admin Dose 200 MG; Start 12/31/16 at 09:00 Collagenase 1 applic 1 applic DAILY TOP Last administered on 01/11/17 09:56; Admin Dose 1 APPLIC; Start 01/04/17 at 09:00 Propofol 100 ml @ 2.544 mls/ hr Q12H IV Last administered on 01/08/17 04:00; Admin Dose 2.544 MLS/HR; Start 01/08/17 at 04:00 Meropenem 100 ml @ 200 mls/hr Q24H IVPB Last administered on 01/11/17 20:32; Admin Dose 200 MLS/HR; Start 01/08/17 at 21:00 Linezolid (Zyvox 600mg/D5W (Pmx)) 300 ml @ 300 mls/hr Q12 IVPB Last administered on 01/12/17 08:56; Admin Dose 300 MLS/HR; Start 01/08/17 at 18:00 Insulin Aspart (Novolog Insulin Pen) NOVOLOG *MODERATE* ALGORI... Q4 SC Last administered on 01/12/17 06:04; Admin Dose 4 UNIT; Start 01/09/17 at 14:15 Diagnostic Test (Pha) (Accu-Chek) 1 ea 02 XX Last administered on 01/12/17 02: 00; Admin Dose 1 EA; Start 01/10/17 at 02:00 Metoprolol Tartrate (Lopressor) 100 mg BID PO Last administered on 01/11/17 20 :35; Admin Dose 100 MG; Start 01/09/17 at 14:00 Insulin Glargine (Lantus) 30 unit DAILY@20 SC Last administered on 01/11/17 20 :37; Admin Dose 30 UNIT; Start 01/11/17 at 20:00 CHRISTY LOPEZ M.D. January 12, 2017 09:07
[2017-01-12] MEDS ORDERED: CASPOFUNGIN 70 MG in SOD CHLORIDE 0.9% 250 ML IVPB ONE (09:30)
--- NOTE | 2017-01-12 10:25 | RADRPT ---
PROCEDURE: XR Chest 1 view. CLINICAL INDICATION: Shortness of breath. TECHNIQUE: AP views of the chest were obtained. COMPARISON: January 09, 2017 FINDINGS: The heart is large. Calcified atherosclerosis is noted in the aorta. Endotracheal and nasogastric t ubes are stable and appear in grossly appropriate location. Right-sided dialysis catheter is unchan ged. Central pulmonary vascular congestion and interstitial prominence continues to be seen in both lungs. Perihilar right upper lobe infiltrates have decreased. Mild residual remains. Bilateral l ower lobe infiltrates and small pleural effusions are stable. Osseous structures are intact. IMPRESSION: Cardiomegaly with calcified atherosclerosis in the aorta. Central pulmonary vascular congestion and interstitial prominence in both lungs. Interval decrease in perihilar right upper lobe infiltrates. Mild residual remains. Stable bilateral lower lobe infiltrates, combined with small pleural effusion. RPTAT: AA .Bishnu Ramos MD, Date Time Electronically viewed and signed by .Bishnu Ramos MD, on 01/12/2017 10:25 .P/
--- NOTE | 2017-01-12 11:25 | CONS ---
Date/Time of Note Date/Time of Note DATE: 01/12/17 TIME: 11:22 Assessment/Plan Assessment/Plan Additional Assessment/Plan Chest x-ray was reviewed from today which is showing bibasilar infiltrates/ pleural effusions. Ventilator settings; AC of 16, tidal volume 500, PEEP of 5, 30% FiO2. Assessment recommendations; 1. Patient admitted initially for cellulitis then developed renal failure requiring hemodialysis. 2. Status post cardiac arrest and CPR with likely anoxic brain injury. 3. Renal failure, on hemodialysis. 4. Bilateral pneumonia. 5. Underlying cardiomyopathy. Continue current treatment. Prognosis is poor. Consultation Date/Type/Reason Admit Date/Time Dec 02, 2016 at 21:01 Initial Consult Date 12/03/16 Type of Consultation: Pulmonary/critical care Referring Provider: VIET PARKER MD 24 HR Interval Summary Free Text/Dictation Patient's condition remains critical. Patient is minimally responsive, opens eyes on deep sternal rubbing. Patient however has remained hemodynamically stable. General exam; elderly male, on ventilator via endotracheal tube. Currently in no distress. Exam/Review of Systems Vital Signs Vitals Vital Signs Date Time Temp Pulse Resp B/P Pulse Ox O2 Delivery O2 Flow Rate FiO2 01/12/17 11:20 10 18 100 30 01/12/17 09:00 126/58 Mechanical Ventilator 01/12/17 07:30 98.9 Intake and Output 01/11/17 01/11/17 01/12/17 15:00 23:00 07:00 Intake Total 1050 ml 690 ml 310 ml Output Total 2575 ml 205 ml 110 ml Balance -1525 ml 485 ml 200 ml Exam HEENT exam; supple neck, positive JVD. No lymphadenopathy. Midline trachea. No thyromegaly. Patient is edentulous. Pupils are midsize and reactive to light. Orally intubated. Chest examined; diminished breath on lung bases bilaterally. Upper lobes are fairly clear. S1-S2 audible, no murmurs. Regular rhythm. Abdomen exam; soft, nondistended. No organomegaly. Bowel sounds audible. Extremity exam; no peripheral edema. 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 Results Result Diagram: 01/12/17 0542 01/12/17 0542 Results 24 hrs Laboratory Tests Test 01/11/17 13:50 01/11/17 14:00 01/11/17 18:29 01/11/17 20:31 Urine Color LT. YELLOW Urine Clarity HAZY Urine pH 5.5 Urine Specific [place] 1.015 Urine Ketones NEGATIVE Urine Nitrite NEGATIVE Urine Bilirubin NEGATIVE Urine Urobilinogen 0.2 E.U./dL Urine Leukocyte Esterase 1+ H Urine Microscopic RBC 0-2 Urine Microscopic WBC >50 Urine Squamous Epithelial Cells RARE Urine Bacteria FEW Urine Yeast MANY Urine Hemoglobin TRACE Urine Glucose NEGATIVE Urine Total Protein TRACE Bedside Glucose 298 H 306 H 262 H Test 01/12/17 01:19 01/12/17 05:42 01/12/17 06:00 01/12/17 08:52 Bedside Glucose 224 H 215 187 White Blood Count 8.6 Red Blood Count 3.04 L Hemoglobin 9.0 L Hematocrit 29.5 L Mean Corpuscular Volume 97.0 Mean Corpuscular Hemoglobin 29.6 Mean Corpuscular Hemoglobin Concent 30.5 L Red Cell Distribution Width 13.2 Platelet Count 240 Mean Platelet Volume 10.4 Neutrophils % 78.4 H Lymphocytes % 10.8 L Monocytes % 9.8 Eosinophils % 0.1 Basophils % 0.2 Nucleated Red Blood Cells % 0.0 Neutrophils # 6.7 Lymphocytes # 0.9 Monocytes # 0.8 Eosinophils # 0.0 Basophils # 0.0 Nucleated Red Blood Cells # 0.0 Sodium Level 144 Potassium Level 4.0 Chloride Level 109 Carbon Dioxide Level 28 Anion Gap 11 Blood Urea Nitrogen 55 H Creatinine 3.17 H Glucose Level 207 Calcium Level 8.8 Medications Medications Current Medications Ondansetron HCl (Zofran Inj) 4 mg Q6H PRN IV NAUSEA AND/OR VOMITING Last administered on 12/13/16 01:13; Admin Dose 4 MG; Start 12/02/16 at 22:30 Miscellaneous Information 1 ea NOTE XX ; Start 12/02/16 at 23:00 Glucose (Glutose) 15 gm Q15M PRN PO DECREASED GLUCOSE; Start 12/02/16 at 23:00 Glucose (Glutose) 22.5 gm Q15M PRN PO DECREASED GLUCOSE; Start 12/02/16 at 23: 00 Dextrose (D50w Syringe) 25 ml Q15M PRN IV DECREASED GLUCOSE Last administered on 12/10/16 05:52; Admin Dose 25 ML; Start 12/02/16 at 23:00 Dextrose (D50w Syringe) 50 ml Q15M PRN IV DECREASED GLUCOSE; Start 12/02/16 at 23:00 Glucagon (Glucagen) 1 mg Q15M PRN IM DECREASED GLUCOSE; Start 12/02/16 at 23:00 Glucose (Glutose) 15 gm Q15M PRN BUCCAL DECREASED GLUCOSE; Start 12/02/16 at 23 :00 Gabapentin (Neurontin) 800 mg TID PO Last administered on 12/08/16 20:33; Admin Dose 800 MG; Start 12/03/16 at 09:00; Status Future Hold Meclizine HCl (Antivert) 25 mg TID PRN PO dizziness Last administered on 09:37; Admin Dose 25 MG; Start 12/02/16 at 23:00 Terazosin HCl (Hytrin) 5 mg HS PO Last administered on 12/07/16 20:28; Admin Dose 5 MG; Start 12/03/16 at 21:00; Status Future Hold Acetaminophen/ Hydrocodone Bitart ([place] (5/325)) 1 tab Q6H PRN PO PAIN LEVEL 4 -7 Last administered on 12/23/16 22:14; Admin Dose 1 TAB; Start 12/02/16 at 23: 30 Acetaminophen (Tylenol Tab) 650 mg Q6H PRN PO PAIN AND OR ELEVATED TEMP Last administered on 01/10/17 00:37; Admin Dose 650 MG; Start 12/02/16 at 23:30 Docusate Sodium (Colace) 100 mg BID PO Last administered on 12/08/16 20:32; Admin Dose 100 MG; Start 12/03/16 at 09:00; Status Future Hold Zolpidem Tartrate (Ambien) 5 mg HS PRN PO INSOMNIA Last administered on 20:53; Admin Dose 5 MG; Start 12/02/16 at 23:30 Benazepril HCl (Lotensin) 10 mg DAILY PO Last administered on 12/07/16 08:26; Admin Dose 10 MG; Start 12/04/16 at 09:00; Status Future Hold Morphine Sulfate (morphine) 2 mg Q2H PRN IV PAIN Last administered on 12/20/16 03:22; Admin Dose 2 MG; Start 12/09/16 at 09:30 Acetaminophen (Tylenol Supp) 650 mg Q6H PRN SC ELEVATED TEMPERATURE Last administered on 12/09/16 17:53; Admin Dose 650 MG; Start 12/09/16 at 17:00 Metoprolol Tartrate (Lopressor) 5 mg Q4H PRN IV HR>100 Last administered on 22:23; Admin Dose 5 MG; Start 12/09/16 at 17:48 Hydralazine HCl (Apresoline) 10 mg Q6H PRN IV SBP>150mm hg Last administered on 12/19/16 08:50; Admin Dose 10 MG; Start 12/11/16 at 10:30 Morphine Sulfate (morphine) 2 mg Q2H PRN IV PAIN LEVEL 4-7; Start 12/13/16 at 10 :00 Pantoprazole (Protonix Tab) 40 mg DAILY@06 PO Last administered on 01/12/17 06 :04; Admin Dose 40 MG; Start 12/23/16 at 06:00 Aspirin (Halfprin) 81 mg DAILY PO Last administered on 01/12/17 08:57; Admin Dose 81 MG; Start 12/31/16 at 09:00 Apixaban (Eliquis) 2.5 mg BID PO Last administered on 01/12/17 08:57; Admin Dose 2.5 MG; Start 12/30/16 at 21:00 Amiodarone HCl (Cordarone) 200 mg DAILY PO Last administered on 01/12/17 08:57 ; Admin Dose 200 MG; Start 12/31/16 at 09:00 Collagenase 1 applic 1 applic DAILY TOP Last administered on 01/12/17 09:00; Admin Dose 1 APPLIC; Start 01/04/17 at 09:00 Propofol 100 ml @ 2.544 mls/ hr Q12H IV Last administered on 01/08/17 04:00; Admin Dose 2.544 MLS/HR; Start 01/08/17 at 04:00 Meropenem 100 ml @ 200 mls/hr Q24H IVPB Last administered on 01/11/17 20:32; Admin Dose 200 MLS/HR; Start 01/08/17 at 21:00 Linezolid (Zyvox 600mg/D5W (Pmx)) 300 ml @ 300 mls/hr Q12 IVPB Last administered on 01/12/17 08:56; Admin Dose 300 MLS/HR; Start 01/08/17 at 18:00 Insulin Aspart (Novolog Insulin Pen) NOVOLOG *MODERATE* ALGORI... Q4 SC Last administered on 01/12/17 09:03; Admin Dose 4 UNIT; Start 01/09/17 at 14:15 Diagnostic Test (Pha) (Accu-Chek) 1 ea 02 XX Last administered on 01/12/17 02: 00; Admin Dose 1 EA; Start 01/10/17 at 02:00 Metoprolol Tartrate (Lopressor) 100 mg BID PO Last administered on 01/11/17 20 :35; Admin Dose 100 MG; Start 01/09/17 at 14:00 Insulin Glargine 30 unit 30 unit DAILY@20 SC Last administered on 01/11/17 20: 37; Admin Dose 30 UNIT; Start 01/11/17 at 20:00 Caspofungin/ Sodium Chloride (Cancidas/NS) 250 ml @ 250 mls/hr Q24H IVPB ; Start 01/13/17 at 09:30 IKE MULLER January 12, 2017 11:25
--- NOTE | 2017-01-12 11:39 | CONS ---
Date/Time of Note Date/Time of Note DATE: 01/12/17 TIME: 11:34 Consult Date/Type/Reason Admit Date/Time Dec 02, 2016 at 21:01 Initial Consult Date 12/08/16 Type of Consultation: Neurology Reason for Consultation cardiac arrest evaluate for hypoxic ischemic encephalopathy Ordering Provider: VIET PARKER MD Subjective remains unresponsive off sedation no improvement in neurologic exam Objective Vital Signs Date Time Temp Pulse Resp B/P Pulse Ox O2 Delivery O2 Flow Rate FiO2 01/12/17 11:20 10 18 100 30 01/12/17 09:00 126/58 Mechanical Ventilator 01/12/17 07:30 98.9 Intake and Output 01/11/17 01/11/17 01/12/17 15:00 23:00 07:00 Intake Total 1050 ml 690 ml 310 ml Output Total 2575 ml 205 ml 110 ml Balance -1525 ml 485 ml 200 ml Exam opens his eyes briefly to verbal stimuli unable to follow any commands no purposeful movement unable to track examiner decreased blink to threat b/l CN: pupils sluggish reactive 2 mm b/l, corneals are present strong gag present Motor: no withdrawal to noxious stimuli extremities are flaccid throughout Reflexes: absent throughout toes are mute Results/Medications Result Diagram: 01/12/17 0542 01/12/17 0542 Results 24 hrs Laboratory Tests Test 01/11/17 13:50 01/11/17 14:00 01/11/17 18:29 01/11/17 20:31 Urine Color LT. YELLOW Urine Clarity HAZY Urine pH 5.5 Urine Specific [place] 1.015 Urine Ketones NEGATIVE Urine Nitrite NEGATIVE Urine Bilirubin NEGATIVE Urine Urobilinogen 0.2 E.U./dL Urine Leukocyte Esterase 1+ H Urine Microscopic RBC 0-2 Urine Microscopic WBC >50 Urine Squamous Epithelial Cells RARE Urine Bacteria FEW Urine Yeast MANY Urine Hemoglobin TRACE Urine Glucose NEGATIVE Urine Total Protein TRACE Bedside Glucose 298 H 306 H 262 H Test 01/12/17 01:19 01/12/17 05:42 01/12/17 06:00 01/12/17 08:52 Bedside Glucose 224 H 215 187 White Blood Count 8.6 Red Blood Count 3.04 L Hemoglobin 9.0 L Hematocrit 29.5 L Mean Corpuscular Volume 97.0 Mean Corpuscular Hemoglobin 29.6 Mean Corpuscular Hemoglobin Concent 30.5 L Red Cell Distribution Width 13.2 Platelet Count 240 Mean Platelet Volume 10.4 Neutrophils % 78.4 H Lymphocytes % 10.8 L Monocytes % 9.8 Eosinophils % 0.1 Basophils % 0.2 Nucleated Red Blood Cells % 0.0 Neutrophils # 6.7 Lymphocytes # 0.9 Monocytes # 0.8 Eosinophils # 0.0 Basophils # 0.0 Nucleated Red Blood Cells # 0.0 Sodium Level 144 Potassium Level 4.0 Chloride Level 109 Carbon Dioxide Level 28 Anion Gap 11 Blood Urea Nitrogen 55 H Creatinine 3.17 H Glucose Level 207 Calcium Level 8.8 Medications Current Medications Ondansetron HCl (Zofran Inj) 4 mg Q6H PRN IV NAUSEA AND/OR VOMITING Last administered on 12/13/16 01:13; Admin Dose 4 MG; Start 12/02/16 at 22:30 Miscellaneous Information 1 ea NOTE XX ; Start 12/02/16 at 23:00 Glucose (Glutose) 15 gm Q15M PRN PO DECREASED GLUCOSE; Start 12/02/16 at 23:00 Glucose (Glutose) 22.5 gm Q15M PRN PO DECREASED GLUCOSE; Start 12/02/16 at 23: 00 Dextrose (D50w Syringe) 25 ml Q15M PRN IV DECREASED GLUCOSE Last administered on 12/10/16 05:52; Admin Dose 25 ML; Start 12/02/16 at 23:00 Dextrose (D50w Syringe) 50 ml Q15M PRN IV DECREASED GLUCOSE; Start 12/02/16 at 23:00 Glucagon (Glucagen) 1 mg Q15M PRN IM DECREASED GLUCOSE; Start 12/02/16 at 23:00 Glucose (Glutose) 15 gm Q15M PRN BUCCAL DECREASED GLUCOSE; Start 12/02/16 at 23 :00 Gabapentin (Neurontin) 800 mg TID PO Last administered on 12/08/16 20:33; Admin Dose 800 MG; Start 12/03/16 at 09:00; Status Future Hold Meclizine HCl (Antivert) 25 mg TID PRN PO dizziness Last administered on 09:37; Admin Dose 25 MG; Start 12/02/16 at 23:00 Terazosin HCl (Hytrin) 5 mg HS PO Last administered on 12/07/16 20:28; Admin Dose 5 MG; Start 12/03/16 at 21:00; Status Future Hold Acetaminophen/ Hydrocodone Bitart ([place] (5/325)) 1 tab Q6H PRN PO PAIN LEVEL 4 -7 Last administered on 12/23/16 22:14; Admin Dose 1 TAB; Start 12/02/16 at 23: 30 Acetaminophen (Tylenol Tab) 650 mg Q6H PRN PO PAIN AND OR ELEVATED TEMP Last administered on 01/10/17 00:37; Admin Dose 650 MG; Start 12/02/16 at 23:30 Docusate Sodium (Colace) 100 mg BID PO Last administered on 12/08/16 20:32; Admin Dose 100 MG; Start 12/03/16 at 09:00; Status Future Hold Zolpidem Tartrate (Ambien) 5 mg HS PRN PO INSOMNIA Last administered on 20:53; Admin Dose 5 MG; Start 12/02/16 at 23:30 Benazepril HCl (Lotensin) 10 mg DAILY PO Last administered on 12/07/16 08:26; Admin Dose 10 MG; Start 12/04/16 at 09:00; Status Future Hold Morphine Sulfate (morphine) 2 mg Q2H PRN IV PAIN Last administered on 12/20/16 03:22; Admin Dose 2 MG; Start 12/09/16 at 09:30 Acetaminophen (Tylenol Supp) 650 mg Q6H PRN [place] ELEVATED TEMPERATURE Last administered on 12/09/16 17:53; Admin Dose 650 MG; Start 12/09/16 at 17:00 Metoprolol Tartrate (Lopressor) 5 mg Q4H PRN IV HR>100 Last administered on 22:23; Admin Dose 5 MG; Start 12/09/16 at 17:48 Hydralazine HCl (Apresoline) 10 mg Q6H PRN IV SBP>150mm hg Last administered on 12/19/16 08:50; Admin Dose 10 MG; Start 12/11/16 at 10:30 Morphine Sulfate (morphine) 2 mg Q2H PRN IV PAIN LEVEL 4-7; Start 12/13/16 at 10 :00 Pantoprazole (Protonix Tab) 40 mg DAILY@06 PO Last administered on 01/12/17 06 :04; Admin Dose 40 MG; Start 12/23/16 at 06:00 Aspirin (Halfprin) 81 mg DAILY PO Last administered on 01/12/17 08:57; Admin Dose 81 MG; Start 12/31/16 at 09:00 Apixaban (Eliquis) 2.5 mg BID PO Last administered on 01/12/17 08:57; Admin Dose 2.5 MG; Start 12/30/16 at 21:00 Amiodarone HCl (Cordarone) 200 mg DAILY PO Last administered on 01/12/17 08:57 ; Admin Dose 200 MG; Start 12/31/16 at 09:00 Collagenase 1 applic 1 applic DAILY TOP Last administered on 01/12/17 09:00; Admin Dose 1 APPLIC; Start 01/04/17 at 09:00 Propofol 100 ml @ 2.544 mls/ hr Q12H IV Last administered on 01/08/17 04:00; Admin Dose 2.544 MLS/HR; Start 01/08/17 at 04:00 Meropenem 100 ml @ 200 mls/hr Q24H IVPB Last administered on 01/11/17 20:32; Admin Dose 200 MLS/HR; Start 01/08/17 at 21:00 Linezolid (Zyvox 600mg/D5W (Pmx)) 300 ml @ 300 mls/hr Q12 IVPB Last administered on 01/12/17 08:56; Admin Dose 300 MLS/HR; Start 01/08/17 at 18:00 Insulin Aspart (Novolog Insulin Pen) NOVOLOG *MODERATE* ALGORI... Q4 SC Last administered on 01/12/17 09:03; Admin Dose 4 UNIT; Start 01/09/17 at 14:15 Diagnostic Test (Pha) (Accu-Chek) 1 ea 02 XX Last administered on 01/12/17 02: 00; Admin Dose 1 EA; Start 01/10/17 at 02:00 Metoprolol Tartrate (Lopressor) 100 mg BID PO Last administered on 01/11/17 20 :35; Admin Dose 100 MG; Start 01/09/17 at 14:00 Insulin Glargine 30 unit 30 unit DAILY@20 SC Last administered on 01/11/17 20: 37; Admin Dose 30 UNIT; Start 01/11/17 at 20:00 Caspofungin/ Sodium Chloride (Cancidas/NS) 250 ml @ 250 mls/hr Q24H IVPB ; Start 01/13/17 at 09:30 Assessment/Plan Chief Complaint/Hosp Course 66 year old male with prolonged hospitalization initially for cellulitis, OM, ARF requiring HD s/p cardiac arrest on 12/09 and again on 01/08 with suspected anoxic brain injury. Head CT on 01/10 shows mild white matter disease consistent with chronic small vessel ischemic changes. Recommendations: -awaiting Routine EEG -continue current management, goals of care discussion with family Problems: AYAH GERARD MD January 12, 2017 11:39
[2017-01-12] MEDS: ALBUMIN HUMAN 25% 50 ML IV PRN (12:13)
--- NOTE | 2017-01-12 12:58 | CONS ---
Date/Time of Note Date/Time of Note DATE: 01/12/17 TIME: 12:51 Assessment/Plan Assessment/Plan Chief Complaint/Hosp Course IMPRESSION: 1. Atrial fibrillation-most recently in SR with PAC/PVC when on tele and by ECG 01/07 today 2. Hypotension-borderline while on HD currently 3. Abnormal electrocardiogram with inferolateral T-wave inversions. 4. Respiratory failure-s/p intubation and remains 5. Nonhealing toe ulceration-vascular following 6. Peripheral arterial disease by arterial ultrasound of the lower extremities this admission. 7. Diabetes mellitus. 8. Fevers. 9. Positive troponin-downtrended 10.Bradycardia-improved/stable 11.-severe by echo 12.Cardiomyopathy-EF 40-45% by echo/36% by stress with no ischemia but positive scar. EF <30% by echo post arrest 14.Encephalopathy 15. s/p cardiopulmonary arrest 01/08 Recc: -Tele -serial ecg -HD for volume removal as tolerated -Continue baby asa/eliquis -Continue PO amio in attempt to maintain SR -Continue BB as tolerated only following HR/BP closely -Will hold on afterload reduction given severe and thus fixed afterload at valve orifice -Ongoing neuro eval Problems: Consultation Date/Type/Reason Admit Date/Time Dec 02, 2016 at 21:01 Initial Consult Date 12/03/16 Type of Consultation: Cardiology Reason for Consultation cardiac arrest Referring Provider: VIET PARKER MD Exam/Review of Systems Vital Signs Vitals Vital Signs Date Time Temp Pulse Resp B/P Pulse Ox O2 Delivery O2 Flow Rate FiO2 01/12/17 12:30 91 01/12/17 12:00 98.3 19 101/62 100 Mechanical Ventilator 01/12/17 11:20 30 Intake and Output 01/11/17 01/11/17 01/12/17 15:00 23:00 07:00 Intake Total 1050 ml 690 ml 310 ml Output Total 2575 ml 205 ml 110 ml Balance -1525 ml 485 ml 200 ml Exam Review of Systems: CONSTITUTIONAL: No fevers, chills. PULMONARY: No sob CARDIOVASCULAR: No chest pain/palpitations GASTROINTESTINAL: No nausea/vomiting. GENITOURINARY: No hematuria/dysuria. MUSCULOSKELETAL: No myagias/arthalgias. PSYCHIATRIC: The patient denies depression. NEUROLOGIC: Encephalopathy Constitutional: other (encephalopathy) Psych: no complaints Head: normocephalic ENMT: mucosa pink and moist Neck: jvd, supple Respiratory: diminished breath sounds Cardiovascular: regular rate and rhythm Gastrointestinal: non-tender, soft Musculoskeletal: muscle tone (normal) Extremities: edema (none) Neurological: other (No focal deficits) Results Result Diagram: 01/12/17 0542 01/12/17 0542 Results 24 hrs Laboratory Tests Test 01/11/17 13:50 01/11/17 14:00 01/11/17 18:29 01/11/17 20:31 Urine Color LT. YELLOW Urine Clarity HAZY Urine pH 5.5 Urine Specific [place] 1.015 Urine Ketones NEGATIVE Urine Nitrite NEGATIVE Urine Bilirubin NEGATIVE Urine Urobilinogen 0.2 E.U./dL Urine Leukocyte Esterase 1+ H Urine Microscopic RBC 0-2 Urine Microscopic WBC >50 Urine Squamous Epithelial Cells RARE Urine Bacteria FEW Urine Yeast MANY Urine Hemoglobin TRACE Urine Glucose NEGATIVE Urine Total Protein TRACE Bedside Glucose 298 H 306 H 262 H Test 01/12/17 01:19 01/12/17 05:42 01/12/17 06:00 01/12/17 08:52 Bedside Glucose 224 H 215 187 White Blood Count 8.6 Red Blood Count 3.04 L Hemoglobin 9.0 L Hematocrit 29.5 L Mean Corpuscular Volume 97.0 Mean Corpuscular Hemoglobin 29.6 Mean Corpuscular Hemoglobin Concent 30.5 L Red Cell Distribution Width 13.2 Platelet Count 240 Mean Platelet Volume 10.4 Neutrophils % 78.4 H Lymphocytes % 10.8 L Monocytes % 9.8 Eosinophils % 0.1 Basophils % 0.2 Nucleated Red Blood Cells % 0.0 Neutrophils # 6.7 Lymphocytes # 0.9 Monocytes # 0.8 Eosinophils # 0.0 Basophils # 0.0 Nucleated Red Blood Cells # 0.0 Sodium Level 144 Potassium Level 4.0 Chloride Level 109 Carbon Dioxide Level 28 Anion Gap 11 Blood Urea Nitrogen 55 H Creatinine 3.17 H Glucose Level 207 Calcium Level 8.8 Test 01/12/17 12:04 Bedside Glucose 180 Medications Medications Current Medications Ondansetron HCl (Zofran Inj) 4 mg Q6H PRN IV NAUSEA AND/OR VOMITING Last administered on 12/13/16t 01:13; Admin Dose 4 MG; Start 12/02/16 at 22:30 Miscellaneous Information 1 ea NOTE XX ; Start 12/02/16 at 23:00 Glucose (Glutose) 15 gm Q15M PRN PO DECREASED GLUCOSE; Start 12/02/16 at 23:00 Glucose (Glutose) 22.5 gm Q15M PRN PO DECREASED GLUCOSE; Start 12/02/16 at 23: 00 Dextrose (D50w Syringe) 25 ml Q15M PRN IV DECREASED GLUCOSE Last administered on 12/10/16 05:52; Admin Dose 25 ML; Start 12/02/16 at 23:00 Dextrose (D50w Syringe) 50 ml Q15M PRN IV DECREASED GLUCOSE; Start 12/02/16 at 23:00 Glucagon (Glucagen) 1 mg Q15M PRN IM DECREASED GLUCOSE; Start 12/02/16 at 23:00 Glucose (Glutose) 15 gm Q15M PRN BUCCAL DECREASED GLUCOSE; Start 12/02/16 at 23 :00 Gabapentin (Neurontin) 800 mg TID PO Last administered on 12/08/16 20:33; Admin Dose 800 MG; Start 12/03/16 at 09:00; Status Future Hold Meclizine HCl (Antivert) 25 mg TID PRN PO dizziness Last administered on 09:37; Admin Dose 25 MG; Start 12/02/16 at 23:00 Terazosin HCl (Hytrin) 5 mg HS PO Last administered on 12/07/16 20:28; Admin Dose 5 MG; Start 12/03/16 at 21:00; Status Future Hold Acetaminophen/ Hydrocodone Bitart ([place] (5/325)) 1 tab Q6H PRN PO PAIN LEVEL 4 -7 Last administered on 12/23/16 22:14; Admin Dose 1 TAB; Start 12/02/16 at 23: 30 Acetaminophen (Tylenol Tab) 650 mg Q6H PRN PO PAIN AND OR ELEVATED TEMP Last administered on 01/10/17 00:37; Admin Dose 650 MG; Start 12/02/16 at 23:30 Docusate Sodium (Colace) 100 mg BID PO Last administered on 12/08/16 20:32; Admin Dose 100 MG; Start 12/03/16 at 09:00; Status Future Hold Zolpidem Tartrate (Ambien) 5 mg HS PRN PO INSOMNIA Last administered on 20:53; Admin Dose 5 MG; Start 12/02/16 at 23:30 Benazepril HCl (Lotensin) 10 mg DAILY PO Last administered on 12/07/16 08:26; Admin Dose 10 MG; Start 12/04/16 at 09:00; Status Future Hold Morphine Sulfate (morphine) 2 mg Q2H PRN IV PAIN Last administered on 12/20/16 03:22; Admin Dose 2 MG; Start 12/09/16 at 09:30 Acetaminophen (Tylenol Supp) 650 mg Q6H PRN [place] ELEVATED TEMPERATURE Last administered on 12/09/16 17:53; Admin Dose 650 MG; Start 12/09/16 at 17:00 Metoprolol Tartrate (Lopressor) 5 mg Q4H PRN IV HR>100 Last administered on 22:23; Admin Dose 5 MG; Start 12/09/16 at 17:48 Hydralazine HCl (Apresoline) 10 mg Q6H PRN IV SBP>150mm hg Last administered on 12/19/16 08:50; Admin Dose 10 MG; Start 12/11/16 at 10:30 Morphine Sulfate (morphine) 2 mg Q2H PRN IV PAIN LEVEL 4-7; Start 12/13/16 at 10 :00 Pantoprazole (Protonix Tab) 40 mg DAILY@06 PO Last administered on 01/12/17 06 :04; Admin Dose 40 MG; Start 12/23/16 at 06:00 Aspirin (Halfprin) 81 mg DAILY PO Last administered on 01/12/17 08:57; Admin Dose 81 MG; Start 12/31/16 at 09:00 Apixaban (Eliquis) 2.5 mg BID PO Last administered on 01/12/17 08:57; Admin Dose 2.5 MG; Start 12/30/16 at 21:00 Amiodarone HCl (Cordarone) 200 mg DAILY PO Last administered on 01/12/17 08:57 ; Admin Dose 200 MG; Start 12/31/16 at 09:00 Collagenase 1 applic 1 applic DAILY TOP Last administered on 01/12/17 09:00; Admin Dose 1 APPLIC; Start 01/04/17 at 09:00 Propofol 100 ml @ 2.544 mls/ hr Q12H IV Last administered on 01/08/17 04:00; Admin Dose 2.544 MLS/HR; Start 01/08/17 at 04:00 Meropenem 100 ml @ 200 mls/hr Q24H IVPB Last administered on 01/11/17 20:32; Admin Dose 200 MLS/HR; Start 01/08/17 at 21:00 Linezolid (Zyvox 600mg/D5W (Pmx)) 300 ml @ 300 mls/hr Q12 IVPB Last administered on 01/12/17 08:56; Admin Dose 300 MLS/HR; Start 01/08/17 at 18:00 Insulin Aspart (Novolog Insulin Pen) NOVOLOG *MODERATE* ALGORI... Q4 SC Last administered on 01/12/17 12:18; Admin Dose 2 UNIT; Start 01/09/17 at 14:15 Diagnostic Test (Pha) (Accu-Chek) 1 ea 02 XX Last administered on 01/12/17 02: 00; Admin Dose 1 EA; Start 01/10/17 at 02:00 Metoprolol Tartrate (Lopressor) 100 mg BID PO Last administered on 01/11/17 20 :35; Admin Dose 100 MG; Start 01/09/17 at 14:00 Insulin Glargine 30 unit 30 unit DAILY@20 SC Last administered on 01/11/17 20: 37; Admin Dose 30 UNIT; Start 01/11/17 at 20:00 Caspofungin/ Sodium Chloride (Cancidas/NS) 250 ml @ 250 mls/hr Q24H IVPB ; Start 01/13/17 at 09:30 VICENTE LESLIE January 12, 2017 12:58
--- NOTE | 2017-01-12 15:33 | PN ---
DATE: 01/12/2017 SUBJECTIVE: A followup on this 66-year-old gentleman status post cardiopulmonary arrest the patient had on 01/08/2017. Patient is currently orally intubated on ventilatory support. The patient is o ff sedation with no purposeful movement or response to verbal stimuli, remains afebrile. OBJECTIVE: VITAL SIGNS: Temperature is 98.3, pulse is 86, blood pressure is 101/62, respiratory rate 19, oxyge n saturation 100% on 30% FIO2. GENERAL: Well-developed, well-nourished male, currently orally intubated and minimally responsive. HEENT: Head is atraumatic, normocephalic. LUNGS: Diminished at the bases. No rhonchi or wheezes noted. HEART: Normal S1, S2. The patient has a pansystolic murmur. ABDOMEN: Round, soft, nondistended. Bowel sounds present. EXTREMITIES: Pulses present. LABORATORY AND DATA: Today CBC: White blood cells 8.6, hemoglobin 9.0, hematocrit 29.5, platelets 240. Chemistry: Sodium is 144, potassium 4.0, chloride 109, carbon dioxide 28, anion gap 11, BUN i s 55, creatinine is 3.17, glucose 207, calcium is 8.8. ASSESSMENT AND PLAN: 1. Status post cardiopulmonary arrest on 12/09/2016 and 01/08/2017. Continue ventilatory support. Dr. Rivera is following in pulmonology consultation. Dr. Cobian following cardiology consultation. 2. Anoxic encephalopathy and stroke. Dr. Natarajan is following in neurology consultation. T he patient's CT of the brain without contrast shows atrophy and mild white matter disease compatible with chronic small vessel ischemia. No intracranial hemorrhage, mass, acute infarct. 2. Acute kidney injury secondary to acute tubular necrosis. The patient is on dialysis. Dr. Remy is following in nephrology consultation. 3. Diabetes mellitus type 2 with hemoglobin A1c 8.7. Continue Lantus and NovoLog with q.4h Accu-C heks. 4. Cardiomyopathy with ejection fraction of 36% by stress. 5. Peripheral arterial disease. 6. Diabetic foot ulcer of left 4th. 7. Paroxysmal atrial fibrillation. 8. Continue Eliquis. 9. Possible aspiration pneumonia versus volume overload. Dr. Moses is following in infectious d isease consultation. Continue antibiotics. 9. Osteomyelitis of the distal phalanx of the left great toe and left 4th proximal phalanx. Contin ue antibiotics per ID. 10. Continue heparin for DVT prophylaxis and Protonix for peptic ulcer disease prophylaxis. 11. Further recommendations based on clinical course. Plan of care discussed with Dr. Parker. Dictated By: KIMBERLY NOYOLA [employer] CONSULTANT for VIET PARKER MD SR/NTS Conf#: [id number] DID#: [id number]
[2017-01-12] MEDS ORDERED: METOPROLOL 5 MG INJ IV ONE (16:00)
[2017-01-12] MEDS ORDERED: CASPOFUNGIN 70 MG in SOD CHLORIDE 0.9% 250 ML IVPB SCH (17:00)
[2017-01-12] MEDS ORDERED: DIGOXIN 500 MCG INJ IV ONE (17:30)
[2017-01-12] MEDS ORDERED: METOPROLOL 5 MG INJ IV PRN (17:30)
--- NOTE | 2017-01-12 17:41 | CONS ---
Date/Time of Note Date/Time of Note DATE: 01/12/17 TIME: 17:39 Assessment/Plan Assessment/Plan Additional Assessment/Plan -S/p cardiopulmonary arrest on 12/09/2016 and on 01/08/2017 - 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 Blood cultures from HD catheter on 12/13/2016 are negative to date. 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 MRI on 12/06/2016 and bone scan on showed 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 and left fourth proximal phalanx. superficial swab grew inna only - s/p right pleural effusion s/p thoracentesis with .9L removed on 12/16/2016 - severe , EF 40-45% per TTE 12/17/16 - DM - Hgb A1c 8.7% - HTN associated with DM Plan: S/p HD today, pt had a 3 days of HD in a row, will reassess in AM if he needs HD S/P family metting today pt has severe , very labile BP sometimes with HD will continue to follow up on patient Consultation Date/Type/Reason Admit Date/Time Dec 02, 2016 at 21:01 Initial Consult Date Type of Consultation: NEPRHOLOGY Referring Provider: VIET PARKER MD 24 HR Interval Summary Free Text/Dictation pt remains intubated, unresponsive, BP labile, S/p HD today, Famiily meeting schedueld today Exam/Review of Systems Vital Signs Vitals Vital Signs Date Time Temp Pulse Resp B/P Pulse Ox O2 Delivery O2 Flow Rate FiO2 01/12/17 17:12 104 19 100 30 01/12/17 16:00 98.6 100/60 Mechanical Ventilator Intake and Output 01/11/17 01/11/17 01/12/17 15:00 23:00 07:00 Intake Total 1050 ml 690 ml 310 ml Output Total 2575 ml 205 ml 110 ml Balance -1525 ml 485 ml 200 ml Exam General: intubated, sedated HEENT: Et tube in place NECK: JVD elevated, no thyromegaly, intubated HEART: regular with no S3, II/ systolic murmur at apex, PMi L LUNGS: Coarse sounds ABD: soft, NT, ND, +BS Neuro: non focal SKIN: chronic changes EXT: trace edema Results Result Diagram: 01/12/1742 01/12/17 0542 Results 24 hrs Laboratory Tests Test 01/11/17 18:29 01/11/17 20:31 01/12/17 01:19 01/12/17 05:42 Bedside Glucose 306 H 262 H 224 H White Blood Count 8.6 Red Blood Count 3.04 L Hemoglobin 9.0 L Hematocrit 29.5 L Mean Corpuscular Volume 97.0 Mean Corpuscular Hemoglobin 29.6 Mean Corpuscular Hemoglobin Concent 30.5 L Red Cell Distribution Width 13.2 Platelet Count 240 Mean Platelet Volume 10.4 Neutrophils % 78.4 H Lymphocytes % 10.8 L Monocytes % 9.8 Eosinophils % 0.1 Basophils % 0.2 Nucleated Red Blood Cells % 0.0 Neutrophils # 6.7 Lymphocytes # 0.9 Monocytes # 0.8 Eosinophils # 0.0 Basophils # 0.0 Nucleated Red Blood Cells # 0.0 Sodium Level 144 Potassium Level 4.0 Chloride Level 109 Carbon Dioxide Level 28 Anion Gap 11 Blood Urea Nitrogen 55 H Creatinine 3.17 H Glucose Level 207 Calcium Level 8.8 Test 01/12/17 06:00 01/12/17 08:52 01/12/17 12:04 Bedside Glucose 215 187 180 Medications Medications Current Medications Ondansetron HCl (Zofran Inj) 4 mg Q6H PRN IV NAUSEA AND/OR VOMITING Last administered on 12/13/16 01:13; Admin Dose 4 MG; Start 12/02/16 at 22:30 Miscellaneous Information 1 ea NOTE XX ; Start 12/02/16 at 23:00 Glucose (Glutose) 15 gm Q15M PRN PO DECREASED GLUCOSE; Start 12/02/16 at 23:00 Glucose (Glutose) 22.5 gm Q15M PRN PO DECREASED GLUCOSE; Start 12/02/16 at 23: 00 Dextrose (D50w Syringe) 25 ml Q15M PRN IV DECREASED GLUCOSE Last administered on 12/10/16 05:52; Admin Dose 25 ML; Start 12/02/16 at 23:00 Dextrose (D50w Syringe) 50 ml Q15M PRN IV DECREASED GLUCOSE; Start 12/02/16 at 23:00 Glucagon (Glucagen) 1 mg Q15M PRN IM DECREASED GLUCOSE; Start 12/02/16 at 23:00 Glucose (Glutose) 15 gm Q15M PRN BUCCAL DECREASED GLUCOSE; Start 12/02/16 at 23 :00 Gabapentin (Neurontin) 800 mg TID PO Last administered on 12/08/16 20:33; Admin Dose 800 MG; Start 12/03/16 at 09:00; Status Future Hold Meclizine HCl (Antivert) 25 mg TID PRN PO dizziness Last administered on 09:37; Admin Dose 25 MG; Start 12/02/16 at 23:00 Terazosin HCl (Hytrin) 5 mg HS PO Last administered on 12/07/16 20:28; Admin Dose 5 MG; Start 12/03/16 at 21:00; Status Future Hold Acetaminophen/ Hydrocodone Bitart ([place] (5/325)) 1 tab Q6H PRN PO PAIN LEVEL 4 -7 Last administered on 12/23/16 22:14; Admin Dose 1 TAB; Start 12/02/16 at 23: 30 Acetaminophen (Tylenol Tab) 650 mg Q6H PRN PO PAIN AND OR ELEVATED TEMP Last administered on 01/10/17 00:37; Admin Dose 650 MG; Start 12/02/16 at 23:30 Docusate Sodium (Colace) 100 mg BID PO Last administered on 12/08/16 20:32; Admin Dose 100 MG; Start 12/03/16 at 09:00; Status Future Hold Zolpidem Tartrate (Ambien) 5 mg HS PRN PO INSOMNIA Last administered on 20:53; Admin Dose 5 MG; Start 12/02/16 at 23:30 Benazepril HCl (Lotensin) 10 mg DAILY PO Last administered on 12/07/16 08:26; Admin Dose 10 MG; Start 12/04/16 at 09:00; Status Future Hold Morphine Sulfate (morphine) 2 mg Q2H PRN IV PAIN Last administered on 12/20/16 03:22; Admin Dose 2 MG; Start 12/09/16 at 09:30 Acetaminophen (Tylenol Supp) 650 mg Q6H PRN ME ELEVATED TEMPERATURE Last administered on 12/09/16 17:53; Admin Dose 650 MG; Start 12/09/16 at 17:00 Hydralazine HCl (Apresoline) 10 mg Q6H PRN IV SBP>150mm hg Last administered on 12/19/16 08:50; Admin Dose 10 MG; Start 12/11/16 at 10:30 Morphine Sulfate (morphine) 2 mg Q2H PRN IV PAIN LEVEL 4-7; Start 12/13/16 at 10 :00 Pantoprazole (Protonix Tab) 40 mg DAILY@06 PO Last administered on 01/12/17 06 :04; Admin Dose 40 MG; Start 12/23/16 at 06:00 Aspirin (Halfprin) 81 mg DAILY PO Last administered on 01/12/17 08:57; Admin Dose 81 MG; Start 12/31/16 at 09:00 Apixaban (Eliquis) 2.5 mg BID PO Last administered on 01/12/17 08:57; Admin Dose 2.5 MG; Start 12/30/16 at 21:00 Amiodarone HCl (Cordarone) 200 mg DAILY PO Last administered on 01/12/17 08:57 ; Admin Dose 200 MG; Start 12/31/16 at 09:00 Collagenase 1 applic 1 applic DAILY TOP Last administered on 01/12/17 09:00; Admin Dose 1 APPLIC; Start 01/04/17 at 09:00 Propofol 100 ml @ 2.544 mls/ hr Q12H IV Last administered on 01/08/17 04:00; Admin Dose 2.544 MLS/HR; Start 01/08/17 at 04:00 Meropenem 100 ml @ 200 mls/hr Q24H IVPB Last administered on 01/11/17 20:32; Admin Dose 200 MLS/HR; Start 01/08/17 at 21:00 Linezolid (Zyvox 600mg/D5W (Pmx)) 300 ml @ 300 mls/hr Q12 IVPB Last administered on 01/12/17 08:56; Admin Dose 300 MLS/HR; Start 01/08/17 at 18:00 Insulin Aspart (Novolog Insulin Pen) NOVOLOG *MODERATE* ALGORI... Q4 SC Last administered on 01/12/17 17:36; Admin Dose 8 UNIT; Start 01/09/17 at 14:15 Diagnostic Test (Pha) (Accu-Chek) 1 ea 02 XX Last administered on 01/12/17 02: 00; Admin Dose 1 EA; Start 01/10/17 at 02:00 Insulin Glargine 30 unit 30 unit DAILY@20 SC Last administered on 01/11/17 20: 37; Admin Dose 30 UNIT; Start 01/11/17 at 20:00 Caspofungin/ Sodium Chloride (Cancidas/NS) 250 ml @ 250 mls/hr Q24H IVPB ; Start 01/13/17 at 09:30 Metoprolol Tartrate 50 mg 50 mg BID PO ; Start 01/12/17 at 21:00 Caspofungin/ Sodium Chloride (Cancidas/NS) 250 ml @ 250 mls/hr ONCE IVPB Last administered on 01/12/17 17:23; Admin Dose 250 MLS/HR; Start 01/12/17 at 17:00 ; Stop 01/12/17 at 18:00 Metoprolol Tartrate (Lopressor) 5 mg Q4 PRN IV FOR H.R>110; Start 01/12/17 at 17:30 TASHIA MCGARRY MD January 12, 2017 17:41
--- NOTE | 2017-01-12 18:14 | SP ---
DATE OF PROCEDURE: ELECTROENCEPHALOGRAM HISTORY: A 66-year-old male with prolonged hospitalization initially for cellulitis, acute renal fa ilure requiring hemodialysis, had a cardiac arrest on 12/09/2016 and again on 01/08/2017. EEG is to evaluate for anoxic brain injury. CURRENT MEDICATIONS: Gabapentin. PROCEDURE: Utilizing a 16-channel EEG machine, cap scalp electrodes were applied in accordance with International 10-20 system. [id number] and [id number] montages were displayed. Electrical i mpedances were measured and reported. DESCRIPTION: During the resting state, a clear posterior dominant rhythm was not seen. Burst suppr ession pattern was noted throughout the tracing with intermittent epileptiform activity. INTERPRETATION: This is an abnormal EEG because of burst suppression pattern consistent with severe anoxic brain injury with epileptiform activity. Correlate these findings with the patient's clinic al picture. Dictated By: DAVON LEHMAN/MICHELLE Conf#: [id number] DID#: [id number]
[2017-01-12] MEDS ORDERED: LEVETIRACETAM 500 MG TAB PO SCH (20:30)
[2017-01-12] MEDS: MEROPENEM 500 MG/100 ML (PMX) 100 ML IVPB SCH (21:23)
[2017-01-12] MEDS: LEVETIRACETAM 500 MG TAB PO SCH (21:23)
[2017-01-12] MEDS: METOPROLOL 50 MG TAB PO SCH (21:25)
[2017-01-12] MEDS: INSULIN GLARGINE [LANtus] 3 ML PEN SC SCH (21:30)
[2017-01-13] VITALS (37 sets, daily range): BP systolic 107–144; BP diastolic 35–71; PULSE 64–102; RESP 14–24
[2017-01-13] MEDS: INSULIN ASPART [NOVOLOG] 3 ML PEN SC SCH ×6 (01:38→20:32)
[2017-01-13] MEDS: ALBUTEROL 18 GM INHALER INH SCH ×4 (01:40→19:27)
[2017-01-13] MEDS: ACCU-CHEK XX SCH (02:00)
[2017-01-13] MEDS: PROPOFOL 100 ML IV SCH ×2 (03:45→15:38)
[2017-01-13 05:42] LABS: ADD SCAN DIFF NO
[2017-01-13] MEDS: ACETAMINOPHEN 325 MG TAB PO PRN (05:44)
[2017-01-13] MEDS: PANTOPRAZOLE (EC) 40 MG TAB PO SCH (05:44)
[2017-01-13 05:45] LABS: BASOPHILS % 0.1 % (0.0-2.0); EOSINOPHILS % 0.4 % (0.0-7.0); HEMOGLOBIN 9.3 g/dl (14.0-18.0); LYMPHOCYTES # 1.3 10^3/ul (0.8-2.9); LYMPHOCYTES % 13.8 % (15.0-51.0); MEAN CORPUSCULAR HEMOGLOBIN 30.5 pg (29.0-33.0); MEAN CORPUSCULAR HGB CONC 32.1 g/dl (32.0-37.0); MEAN CORPUSCULAR VOLUME 95.1 fl (82.0-101.0); MEAN PLATELET VOLUME 10.1 fl (7.4-10.4); MONOCYTES % 10.5 % (0.0-11.0); NEUTROPHILS % 74.6 % (39.0-77.0); PLATELET COUNT 234 10^3/UL (140-415); RED BLOOD COUNT 3.05 10^6/ul (4.70-6.10); WHITE BLOOD COUNT 9.4 10^3/ul (4.8-10.8)
[2017-01-13 06:14] LABS: CALCIUM 8.6 mg/dl (8.4-10.2); CREATININE 2.75 mg/dl (0.61-1.24); POTASSIUM 4.3 mmol/L (3.5-5.1)
--- NOTE | 2017-01-13 08:05 | CONS ---
Date/Time of Note Date/Time of Note DATE: 01/13/17 TIME: 08:01 Assessment/Plan Assessment/Plan Chief Complaint/Hosp Course - recurrent cardiopulmonary arrest on 12/09/2016 and on 01/08/2017 - SIRS vs. sepsis, although cultures have been negative - possible aspiration pneumonia based on CXR vs. 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 Blood cultures from HD catheter on 12/13/2016 are negative to date. 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 MRI on 12/06/2016 and bone scan on showed 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 and left fourth proximal phalanx. superficial swab grew inna only. At present, no e/o persistent infection - s/p right pleural effusion s/p thoracentesis with .9L removed on 12/16/2016; ( Note: there is no pleural fluid cx since orders were placed after Right thoracentesis, and Left thoracentesis was not performed on 12/17/16 d/t insufficient fluid) - s/p funguria - ARANZA, on HD from 12/09/2016 - oliguria - A fib - small nonreversible perfusion abnormality in the inferoapical and inferior carver; EF 36% per Lexiscan 12/24/2016 - severe , EF 40-45% per TTE 12/17/16 - DM - Hgb A1c 8.7% - HTN associated with DM - recurrent episodes of respiratory failure - acute encephalopathy - stage 3 decubitus ulcer of coccyx without evidence of infection recommendations: - repeat resp culture, repeat procalcitonin - pending results: urine culture, surveillance blood cultures from HD catheter at time of HD from 01/12/2017 - continue meropenem and linezolid empirically (01/08/2017-), caspofungin empirically (01/12/2017-) - will adjust his antibiotics depending on his culture results and his clinical status - Pt needs 6 weeks of antibiotics to treat 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 and left fourth proximal phalanx: 12/03/2016 through 01/15/2017 (s/p pip/tazo 12/03/16-01/08/17) - wound care of L 1st toe and coccyx management d/w Pt's RN the critical care time I took to care for this Pt today was from 0730 to 0805 Problems: Consultation Date/Type/Reason Admit Date/Time Dec 02, 2016 at 21:01 Initial Consult Date 12/03/16 Type of Consultation: ID Referring Provider: VIET PARKER MD 24 HR Interval Summary Free Text/Dictation had temp 100.5F earlier, then normalized this morning Subjective hx not possible: pt non-verbal, pt critical, pt critical status Exam/Review of Systems Vital Signs Vitals Vital Signs Date Time Temp Pulse Resp B/P Pulse Ox O2 Delivery O2 Flow Rate FiO2 01/13/17 07:16 79 16 100 30 01/13/17 06:00 117/64 Mechanical Ventilator 01/13/17 04:00 100.5 Intake and Output 01/12/17 01/12/17 01/13/17 15:00 23:00 07:00 Intake Total 1090 ml 940 ml 290 ml Output Total 2800 ml Balance -1710 ml 940 ml 290 ml Exam Constitutional: frail, non-verbal Head: atraumatic, normocephalic Eyes: nl conjunctiva, nl lids ENMT: intubated, nl external ears & nose, other (NGT) Respiratory: crackles/rales Cardiovascular: nl pulses, regular rate and rhythm Gastrointestinal: non-tender, soft, No ascites, No distended, No firm, No mass, No tender Genitourinary - Male: nl penis, nl scrotum Musculoskeletal: nl extremities to inspection Extremities: No edema Neurological: lethargic Skin: other (stage 3 decub without erythema, induration, drainage, fluctuance; eschar of L plantar 1st toe) Results Result Diagram: 01/13/17 0524 01/13/17 0524 Results 24 hrs Laboratory Tests Test 01/12/17 08:52 01/12/17 12:04 01/12/17 17:33 01/12/17 21:27 Bedside Glucose 187 180 263 H 233 H Test 01/13/17 01:35 01/13/17 05:23 01/13/17 05:24 Bedside Glucose 153 136 White Blood Count 9.4 Red Blood Count 3.05 L Hemoglobin 9.3 L Hematocrit 29.0 L Mean Corpuscular Volume 95.1 Mean Corpuscular Hemoglobin 30.5 Mean Corpuscular Hemoglobin Concent 32.1 Red Cell Distribution Width 13.0 Platelet Count 234 Mean Platelet Volume 10.1 Neutrophils % 74.6 Lymphocytes % 13.8 L Monocytes % 10.5 Eosinophils % 0.4 Basophils % 0.1 Nucleated Red Blood Cells % 0.0 Neutrophils # 7.0 Lymphocytes # 1.3 Monocytes # 1.0 H Eosinophils # 0.0 Basophils # 0.0 Nucleated Red Blood Cells # 0.0 Sodium Level 138 Potassium Level 4.3 Chloride Level 100 Carbon Dioxide Level 28 Anion Gap 14 Blood Urea Nitrogen 50 H Creatinine 2.75 H Glucose Level 131 # Calcium Level 8.6 Magnesium Level 2.2 Medications Medications Current Medications Ondansetron HCl (Zofran Inj) 4 mg Q6H PRN IV NAUSEA AND/OR VOMITING Last administered on 12/13/16 01:13; Admin Dose 4 MG; Start 12/02/16 at 22:30 Miscellaneous Information 1 ea NOTE XX ; Start 12/02/16 at 23:00 Glucose (Glutose) 15 gm Q15M PRN PO DECREASED GLUCOSE; Start 12/02/16 at 23:00 Glucose (Glutose) 22.5 gm Q15M PRN PO DECREASED GLUCOSE; Start 12/02/16 at 23: 00 Dextrose (D50w Syringe) 25 ml Q15M PRN IV DECREASED GLUCOSE Last administered on 12/10/16 05:52; Admin Dose 25 ML; Start 12/02/16 at 23:00 Dextrose (D50w Syringe) 50 ml Q15M PRN IV DECREASED GLUCOSE; Start 12/02/16 at 23:00 Glucagon (Glucagen) 1 mg Q15M PRN IM DECREASED GLUCOSE; Start 12/02/16 at 23:00 Glucose (Glutose) 15 gm Q15M PRN BUCCAL DECREASED GLUCOSE; Start 12/02/16 at 23 :00 Gabapentin (Neurontin) 800 mg TID PO Last administered on 12/08/16 20:33; Admin Dose 800 MG; Start 12/03/16 at 09:00; Status Future Hold Meclizine HCl (Antivert) 25 mg TID PRN PO dizziness Last administered on 09:37; Admin Dose 25 MG; Start 12/02/16 at 23:00 Terazosin HCl (Hytrin) 5 mg HS PO Last administered on 12/07/16 20:28; Admin Dose 5 MG; Start 12/03/16 at 21:00; Status Future Hold Acetaminophen/ Hydrocodone Bitart ([place] (5/325)) 1 tab Q6H PRN PO PAIN LEVEL 4 -7 Last administered on 12/23/16 22:14; Admin Dose 1 TAB; Start 12/02/16 at 23: 30 Acetaminophen (Tylenol Tab) 650 mg Q6H PRN PO PAIN AND OR ELEVATED TEMP Last administered on 01/13/17 05:44; Admin Dose 650 MG; Start 12/02/16 at 23:30 Docusate Sodium (Colace) 100 mg BID PO Last administered on 12/08/16 20:32; Admin Dose 100 MG; Start 12/03/16 at 09:00; Status Future Hold Zolpidem Tartrate (Ambien) 5 mg HS PRN PO INSOMNIA Last administered on 20:53; Admin Dose 5 MG; Start 12/02/16 at 23:30 Benazepril HCl (Lotensin) 10 mg DAILY PO Last administered on 12/07/16 08:26; Admin Dose 10 MG; Start 12/04/16 at 09:00; Status Future Hold Morphine Sulfate (morphine) 2 mg Q2H PRN IV PAIN Last administered on 12/20/16 03:22; Admin Dose 2 MG; Start 12/09/16 at 09:30 Acetaminophen (Tylenol Supp) 650 mg Q6H PRN DC ELEVATED TEMPERATURE Last administered on 12/09/16 17:53; Admin Dose 650 MG; Start 12/09/16 at 17:00 Hydralazine HCl (Apresoline) 10 mg Q6H PRN IV SBP>150mm hg Last administered on 12/19/16 08:50; Admin Dose 10 MG; Start 12/11/16 at 10:30 Morphine Sulfate (morphine) 2 mg Q2H PRN IV PAIN LEVEL 4-7; Start 12/13/16 at 10 :00 Pantoprazole (Protonix Tab) 40 mg DAILY@06 PO Last administered on 01/13/17 05: 44; Admin Dose 40 MG; Start 12/23/16 at 06:00 Aspirin (Halfprin) 81 mg DAILY PO Last administered on 01/12/17 08:57; Admin Dose 81 MG; Start 12/31/16 at 09:00 Apixaban (Eliquis) 2.5 mg BID PO Last administered on 01/12/17 21:24; Admin Dose 2.5 MG; Start 12/30/16 at 21:00 Amiodarone HCl (Cordarone) 200 mg DAILY PO Last administered on 01/12/17 08:57 ; Admin Dose 200 MG; Start 12/31/16 at 09:00 Collagenase 1 applic 1 applic DAILY TOP Last administered on 01/12/17 09:00; Admin Dose 1 APPLIC; Start 01/04/17 at 09:00 Propofol 100 ml @ 2.544 mls/ hr Q12H IV Last administered on 01/08/17 04:00; Admin Dose 2.544 MLS/HR; Start 01/08/17 at 04:00 Meropenem 100 ml @ 200 mls/hr Q24H IVPB Last administered on 01/12/17 21:23; Admin Dose 200 MLS/HR; Start 01/08/17 at 21:00 Linezolid (Zyvox 600mg/D5W (Pmx)) 300 ml @ 300 mls/hr Q12 IVPB Last administered on 01/12/17 21:05; Admin Dose 300 MLS/HR; Start 01/08/17 at 18:00 Insulin Aspart (Novolog Insulin Pen) NOVOLOG *MODERATE* ALGORI... Q4 SC Last administered on 01/13/17 01:38; Admin Dose 2 UNIT; Start 01/09/17 at 14:15 Diagnostic Test (Pha) (Accu-Chek) 1 ea 02 XX Last administered on 01/13/17 02: 00; Admin Dose 1 EA; Start 01/10/17 at 02:00 Insulin Glargine 30 unit 30 unit DAILY@20 SC Last administered on 01/12/17 21: 30; Admin Dose 30 UNIT; Start 01/11/17 at 20:00 Caspofungin/ Sodium Chloride (Cancidas/NS) 250 ml @ 250 mls/hr Q24H IVPB ; Start 01/13/17 at 09:30 Metoprolol Tartrate (Lopressor) 50 mg BID PO Last administered on 01/12/17 21: 25; Admin Dose 50 MG; Start 01/12/17 at 21:00 Metoprolol Tartrate (Lopressor) 5 mg Q4 PRN IV FOR H.R>110; Start 01/12/17 at 17:30 Levetiracetam (Keppra) 1,000 mg DAILY PO Last administered on 01/12/17 21:23; Admin Dose 1,000 MG; Start 01/12/17 at 20:00 CHRISTY LOPEZ M.D. Jan 13, 2017 08:05
[2017-01-13] MEDS: LINEZOLID 600 MG/D5W (PMX) 300 ML IVPB SCH ×2 (08:26→21:05)
[2017-01-13] MEDS: APIXABAN 5 MG TABLET PO SCH (08:27)
[2017-01-13] MEDS: AMIODARONE 200 MG TAB PO SCH (08:27)
[2017-01-13] MEDS: LEVETIRACETAM 500 MG TAB PO SCH (08:28)
[2017-01-13] MEDS: ASPIRIN (EC) 81 MG TAB PO SCH (08:28)
[2017-01-13] MEDS: METOPROLOL 50 MG TAB PO SCH (08:28)
[2017-01-13] MEDS: COLLAGENASE 30 GM TUBE TOP SCH (08:29)
--- NOTE | 2017-01-13 10:27 | PN ---
Date/Time of Note Date/Time of Note DATE: 01/13/17 TIME: 10:25 Assessment/Plan VTE Prophylaxis VTE Prophylaxis Intervention: SCD's Lines/Catheters IV Catheter Type (from [facility]): permacath Urinary Cath still in place: No Assessment/Plan Assessment/Plan 1. Cardiac arrhythmias- mag level 2.2, cardiology following, 1. Status post cardiopulmonary arrest on 12/09/2016 and 01/08/2017. Continue ventilatory support. - Dr. Rivera is following in pulmonology consultation. - Dr. Cobian following cardiology consultation. 2. Anoxic encephalopathy and stroke. Dr. Natarajan is following in neurology consultation. The patient's CT of the brain without contrast shows atrophy and mild white matter disease compatible with chronic small vessel ischemia. No intracranial hemorrhage, mass, acute infarct. 2. Acute kidney injury secondary to acute tubular necrosis. The patient is on dialysis. Dr. Remy is following in nephrology consultation. 3. Diabetes mellitus type 2 with hemoglobin A1c 8.7. Continue Lantus and NovoLog with q.4h Accu-Cheks. 4. Cardiomyopathy with ejection fraction of 36% by stress. 5. Peripheral arterial disease. 6. Diabetic foot ulcer of left 4th. 7. Paroxysmal atrial fibrillation. 8. Continue Eliquis. 9. Possible aspiration pneumonia versus volume overload. Dr. Moses is following in infectious disease consultation. Continue antibiotics. 9. Osteomyelitis of the distal phalanx of the left great toe and left 4th proximal phalanx. Continue antibiotics per ID. Continue heparin for DVT prophylaxis and Protonix for peptic ulcer disease prophylaxis. Further recommendations based on clinical course. Plan of care discussed with Dr. Heredia. Subjective 24 Hr Interval Summary Free Text/Dictation Remains intubated, arrhythmias- mag level 2.2, cardiology following, afebrile, bp stable. HD 01/12- 2299 mll removed, Subjective hx not possible: pt non-verbal Constitutional: requiring IVF, requiring O2 Exam/Review of Systems Vital Signs Vitals Vital Signs Date Time Temp Pulse Resp B/P Pulse Ox O2 Delivery O2 Flow Rate FiO2 01/13/17 09:27 76 20 100 30 01/13/17 09:00 124/63 Mechanical Ventilator 01/13/17 08:00 99.6 Intake and Output 01/12/17 01/12/17 01/13/17 15:00 23:00 07:00 Intake Total 1090 ml 940 ml 290 ml Output Total 2800 ml Balance -1710 ml 940 ml 290 ml Exam Constitutional: frail, non-verbal Respiratory: diminished breath sounds, other Cardiovascular: nl pulses Gastrointestinal: non-tender, soft Musculoskeletal: other Extremities: normal pulses Neurological: unresponsive Lymph: nontender Results Result Diagram: 01/13/17 0524 01/13/17 0524 Results 24 hrs Laboratory Tests Test 01/12/17 12:04 01/12/17 17:33 01/12/17 21:27 01/13/17 01:35 Bedside Glucose 180 263 H 233 H 153 Test 01/13/17 05:23 01/13/17 05:24 01/13/17 08:41 Bedside Glucose 136 175 White Blood Count 9.4 Red Blood Count 3.05 L Hemoglobin 9.3 L Hematocrit 29.0 L Mean Corpuscular Volume 95.1 Mean Corpuscular Hemoglobin 30.5 Mean Corpuscular Hemoglobin Concent 32.1 Red Cell Distribution Width 13.0 Platelet Count 234 Mean Platelet Volume 10.1 Neutrophils % 74.6 Lymphocytes % 13.8 L Monocytes % 10.5 Eosinophils % 0.4 Basophils % 0.1 Nucleated Red Blood Cells % 0.0 Neutrophils # 7.0 Lymphocytes # 1.3 Monocytes # 1.0 H Eosinophils # 0.0 Basophils # 0.0 Nucleated Red Blood Cells # 0.0 Sodium Level 138 Potassium Level 4.3 Chloride Level 100 Carbon Dioxide Level 28 Anion Gap 14 Blood Urea Nitrogen 50 H Creatinine 2.75 H Glucose Level 131 # Calcium Level 8.6 Magnesium Level 2.2 Medications Medications Current Medications Ondansetron HCl (Zofran Inj) 4 mg Q6H PRN IV NAUSEA AND/OR VOMITING Last administered on 12/13/16 01:13; Admin Dose 4 MG; Start 12/02/16 at 22:30 Miscellaneous Information 1 ea NOTE XX ; Start 12/02/16 at 23:00 Glucose (Glutose) 15 gm Q15M PRN PO DECREASED GLUCOSE; Start 12/02/16 at 23:00 Glucose (Glutose) 22.5 gm Q15M PRN PO DECREASED GLUCOSE; Start 12/02/16 at 23: 00 Dextrose (D50w Syringe) 25 ml Q15M PRN IV DECREASED GLUCOSE Last administered on 12/10/16 05:52; Admin Dose 25 ML; Start 12/02/16 at 23:00 Dextrose (D50w Syringe) 50 ml Q15M PRN IV DECREASED GLUCOSE; Start 12/02/16 at 23:00 Glucagon (Glucagen) 1 mg Q15M PRN IM DECREASED GLUCOSE; Start 12/02/16 at 23:00 Glucose (Glutose) 15 gm Q15M PRN BUCCAL DECREASED GLUCOSE; Start 12/02/16 at 23 :00 Gabapentin (Neurontin) 800 mg TID PO Last administered on 12/08/16 20:33; Admin Dose 800 MG; Start 12/03/16 at 09:00; Status Future Hold Meclizine HCl (Antivert) 25 mg TID PRN PO dizziness Last administered on 09:37; Admin Dose 25 MG; Start 12/02/16 at 23:00 Terazosin HCl (Hytrin) 5 mg HS PO Last administered on 12/07/16 20:28; Admin Dose 5 MG; Start 12/03/16 at 21:00; Status Future Hold Acetaminophen/ Hydrocodone Bitart ([place] (5/325)) 1 tab Q6H PRN PO PAIN LEVEL 4 -7 Last administered on 12/23/16 22:14; Admin Dose 1 TAB; Start 12/02/16 at 23: 30 Acetaminophen (Tylenol Tab) 650 mg Q6H PRN PO PAIN AND [place] ELEVATED TEMP Last administered on 01/13/17 05:44; Admin Dose 650 MG; Start 12/02/16 at 23:30 Docusate Sodium (Colace) 100 mg BID PO Last administered on 12/08/16 20:32; Admin Dose 100 MG; Start 12/03/16 at 09:00; Status Future Hold Zolpidem Tartrate (Ambien) 5 mg HS PRN PO INSOMNIA Last administered on 20:53; Admin Dose 5 MG; Start 12/02/16 at 23:30 Benazepril HCl (Lotensin) 10 mg DAILY PO Last administered on 12/07/16 08:26; Admin Dose 10 MG; Start 12/04/16 at 09:00; Status Future Hold Morphine Sulfate (morphine) 2 mg Q2H PRN IV PAIN Last administered on 12/20/16 03:22; Admin Dose 2 MG; Start 12/09/16 at 09:30 Acetaminophen (Tylenol Supp) 650 mg Q6H PRN [place] ELEVATED TEMPERATURE Last administered on 12/09/16 17:53; Admin Dose 650 MG; Start 12/09/16 at 17:00 Hydralazine HCl (Apresoline) 10 mg Q6H PRN IV SBP>150mm hg Last administered on 12/19/16 08:50; Admin Dose 10 MG; Start 12/11/16 at 10:30 Morphine Sulfate (morphine) 2 mg Q2H PRN IV PAIN LEVEL 4-7; Start 12/13/16 at 10 :00 Pantoprazole (Protonix Tab) 40 mg DAILY@06 PO Last administered on 01/13/17 05: 44; Admin Dose 40 MG; Start 12/23/16 at 06:00 Aspirin (Halfprin) 81 mg DAILY PO Last administered on 01/13/17 08:28; Admin Dose 81 MG; Start 12/31/16 at 09:00 Apixaban (Eliquis) 2.5 mg BID PO Last administered on 01/13/17 08:27; Admin Dose 2.5 MG; Start 12/30/16 at 21:00 Amiodarone HCl (Cordarone) 200 mg DAILY PO Last administered on 01/13/17 08:27 ; Admin Dose 200 MG; Start 12/31/16 at 09:00 Collagenase 1 applic 1 applic DAILY TOP Last administered on 01/13/17 08:29; Admin Dose 1 APPLIC; Start 01/04/17 at 09:00 Propofol 100 ml @ 2.544 mls/ hr Q12H IV Last administered on 01/08/17 04:00; Admin Dose 2.544 MLS/HR; Start 01/08/17 at 04:00 Meropenem 100 ml @ 200 mls/hr Q24H IVPB Last administered on 01/12/17 21:23; Admin Dose 200 MLS/HR; Start 01/08/17 at 21:00 Linezolid (Zyvox 600mg/D5W (Pmx)) 300 ml @ 300 mls/hr Q12 IVPB Last administered on 01/13/17 08:26; Admin Dose 300 MLS/HR; Start 01/08/17 at 18:00 Insulin Aspart (Novolog Insulin Pen) NOVOLOG *MODERATE* ALGORI... Q4 SC Last administered on 01/13/17 08:43; Admin Dose 2 UNIT; Start 01/09/17 at 14:15 Diagnostic Test (Pha) (Accu-Chek) 1 ea 02 XX Last administered on 01/13/17 02: 00; Admin Dose 1 EA; Start 01/10/17 at 02:00 Insulin Glargine 30 unit 30 unit DAILY@20 SC Last administered on 01/12/17 21: 30; Admin Dose 30 UNIT; Start 01/11/17 at 20:00 Caspofungin/ Sodium Chloride (Cancidas/NS) 250 ml @ 250 mls/hr Q24H IVPB ; Start 01/13/17 at 09:30 Metoprolol Tartrate (Lopressor) 50 mg BID PO Last administered on 01/13/17 08: 28; Admin Dose 50 MG; Start 01/12/17 at 21:00 Metoprolol Tartrate (Lopressor) 5 mg Q4 PRN IV FOR H.R>110; Start 01/12/17 at 17:30 Levetiracetam (Keppra) 1,000 mg DAILY PO Last administered on 01/13/17 08:28; Admin Dose 1,000 MG; Start 01/12/17 at 20:00 YULIANA SIMMONS Jan 13, 2017 10:27
[2017-01-13] MEDS: CASPOFUNGIN 50 MG in SOD CHLORIDE 0.9% 250 ML IVPB SCH (10:42)
--- NOTE | 2017-01-13 11:20 | CONS ---
Date/Time of Note Date/Time of Note DATE: 01/13/17 TIME: 11:17 Assessment/Plan Assessment/Plan Additional Assessment/Plan Ventilator setting; AC of 16, tidal volume 500, PEEP of 5, 30% FiO2. Assessment recommendations; next 1. Patient initially admitted for cellulitis then developed renal failure requiring hemodialysis. 2. Recurrent respiratory failure, likely from flash pulmonary edema likely from underlying cardiomyopathy. 3. Anoxic brain injury from cardiac arrest. 4. Bilateral pneumonia. Continue current supportive care. Prognosis is poor. Consultation Date/Type/Reason Admit Date/Time Dec 02, 2016 at 21:01 Initial Consult Date 12/03/16 Type of Consultation: Pulmonary/critical care Referring Provider: VIET PARKER MD 24 HR Interval Summary Free Text/Dictation Patient condition remains critical. Still requiring full ventilator support. Patient exhibiting continued poor mental status. However has remained hemodynamically stable. General exam; elderly male, orally intubated, essentially unresponsive. Currently in no distress. Exam/Review of Systems Vital Signs Vitals Vital Signs Date Time Temp Pulse Resp B/P Pulse Ox O2 Delivery O2 Flow Rate FiO2 01/13/17 09:27 76 20 100 30 01/13/17 09:00 124/63 Mechanical Ventilator 01/13/17 08:00 99.6 Intake and Output 01/12/17 01/12/17 01/13/17 15:00 23:00 07:00 Intake Total 1090 ml 940 ml 290 ml Output Total 2800 ml Balance -1710 ml 940 ml 290 ml Exam HEENT examination; supple neck, positive JVD. No lymphadenopathy. Midline trachea. No thyromegaly. Patient is edentulous. No neck masses. Chest examination; diminished breath on lung bases bilaterally. Upper lobes are clear. S1-S2 audible, no murmurs. Regular rhythm. Abdomen examination; soft, non-distended. No organomegaly. Bowel sounds audible. Extremity examination; no peripheral edema. DYNAMOMETER TUNER examination; patient remains essentially unresponsive. Results Result Diagram: 01/13/17 0524 01/13/17 0524 Results 24 hrs Laboratory Tests Test 01/12/17 12:04 01/12/17 17:33 01/12/17 21:27 01/13/17 01:35 Bedside Glucose 180 263 H 233 H 153 Test 01/13/17 05:23 01/13/17 05:24 01/13/17 08:41 Bedside Glucose 136 175 White Blood Count 9.4 Red Blood Count 3.05 L Hemoglobin 9.3 L Hematocrit 29.0 L Mean Corpuscular Volume 95.1 Mean Corpuscular Hemoglobin 30.5 Mean Corpuscular Hemoglobin Concent 32.1 Red Cell Distribution Width 13.0 Platelet Count 234 Mean Platelet Volume 10.1 Neutrophils % 74.6 Lymphocytes % 13.8 L Monocytes % 10.5 Eosinophils % 0.4 Basophils % 0.1 Nucleated Red Blood Cells % 0.0 Neutrophils # 7.0 Lymphocytes # 1.3 Monocytes # 1.0 H Eosinophils # 0.0 Basophils # 0.0 Nucleated Red Blood Cells # 0.0 Sodium Level 138 Potassium Level 4.3 Chloride Level 100 Carbon Dioxide Level 28 Anion Gap 14 Blood Urea Nitrogen 50 H Creatinine 2.75 H Glucose Level 131 # Calcium Level 8.6 Magnesium Level 2.2 Medications Medications Current Medications Ondansetron HCl (Zofran Inj) 4 mg Q6H PRN IV NAUSEA AND/OR VOMITING Last administered on 12/13/16 01:13; Admin Dose 4 MG; Start 12/02/16 at 22:30 Miscellaneous Information 1 ea NOTE XX ; Start 12/02/16 at 23:00 Glucose (Glutose) 15 gm Q15M PRN PO DECREASED GLUCOSE; Start 12/02/16 at 23:00 Glucose (Glutose) 22.5 gm Q15M PRN PO DECREASED GLUCOSE; Start 12/02/16 at 23: 00 Dextrose (D50w Syringe) 25 ml Q15M PRN IV DECREASED GLUCOSE Last administered on 12/10/16 05:52; Admin Dose 25 ML; Start 12/02/16 at 23:00 Dextrose (D50w Syringe) 50 ml Q15M PRN IV DECREASED GLUCOSE; Start 12/02/16 at 23:00 Glucagon (Glucagen) 1 mg Q15M PRN IM DECREASED GLUCOSE; Start 12/02/16 at 23:00 Glucose (Glutose) 15 gm Q15M PRN BUCCAL DECREASED GLUCOSE; Start 12/02/16 at 23 :00 Gabapentin (Neurontin) 800 mg TID PO Last administered on 12/08/16 20:33; Admin Dose 800 MG; Start 12/03/16 at 09:00; Status Future Hold Meclizine HCl (Antivert) 25 mg TID PRN PO dizziness Last administered on 09:37; Admin Dose 25 MG; Start 12/02/16 at 23:00 Terazosin HCl (Hytrin) 5 mg HS PO Last administered on 12/07/16 20:28; Admin Dose 5 MG; Start 12/03/16 at 21:00; Status Future Hold Acetaminophen/ Hydrocodone Bitart ([place] (5/325)) 1 tab Q6H PRN PO PAIN LEVEL 4 -7 Last administered on 12/23/16 22:14; Admin Dose 1 TAB; Start 12/02/16 at 23: 30 Acetaminophen (Tylenol Tab) 650 mg Q6H PRN PO PAIN AND OR ELEVATED TEMP Last administered on 01/13/17 05:44; Admin Dose 650 MG; Start 12/02/16 at 23:30 Docusate Sodium (Colace) 100 mg BID PO Last administered on 12/08/16 20:32; Admin Dose 100 MG; Start 12/03/16 at 09:00; Status Future Hold Zolpidem Tartrate (Ambien) 5 mg HS PRN PO INSOMNIA Last administered on 20:53; Admin Dose 5 MG; Start 12/02/16 at 23:30 Benazepril HCl (Lotensin) 10 mg DAILY PO Last administered on 12/07/16 08:26; Admin Dose 10 MG; Start 12/04/16 at 09:00; Status Future Hold Morphine Sulfate (morphine) 2 mg Q2H PRN IV PAIN Last administered on 12/20/16 03:22; Admin Dose 2 MG; Start 12/09/16 at 09:30 Acetaminophen (Tylenol Supp) 650 mg Q6H PRN [place] ELEVATED TEMPERATURE Last administered on 12/09/16 17:53; Admin Dose 650 MG; Start 12/09/16 at 17:00 Hydralazine HCl (Apresoline) 10 mg Q6H PRN IV SBP>150mm hg Last administered on 12/19/16 08:50; Admin Dose 10 MG; Start 12/11/16 at 10:30 Morphine Sulfate (morphine) 2 mg Q2H PRN IV PAIN LEVEL 4-7; Start 12/13/16 at 10 :00 Pantoprazole (Protonix Tab) 40 mg DAILY@06 PO Last administered on 01/13/17 05: 44; Admin Dose 40 MG; Start 12/23/16 at 06:00 Aspirin (Halfprin) 81 mg DAILY PO Last administered on 01/13/17 08:28; Admin Dose 81 MG; Start 12/31/16 at 09:00 Apixaban (Eliquis) 2.5 mg BID PO Last administered on 01/13/17 08:27; Admin Dose 2.5 MG; Start 12/30/16 at 21:00 Amiodarone HCl (Cordarone) 200 mg DAILY PO Last administered on 01/13/17 08:27 ; Admin Dose 200 MG; Start 12/31/16 at 09:00 Collagenase 1 applic 1 applic DAILY TOP Last administered on 01/13/17 08:29; Admin Dose 1 APPLIC; Start 01/04/17 at 09:00 Propofol 100 ml @ 2.544 mls/ hr Q12H IV Last administered on 01/08/17 04:00; Admin Dose 2.544 MLS/HR; Start 01/08/17 at 04:00 Meropenem 100 ml @ 200 mls/hr Q24H IVPB Last administered on 01/12/17 21:23; Admin Dose 200 MLS/HR; Start 01/08/17 at 21:00 Linezolid (Zyvox 600mg/D5W (Pmx)) 300 ml @ 300 mls/hr Q12 IVPB Last administered on 01/13/17 08:26; Admin Dose 300 MLS/HR; Start 01/08/17 at 18:00 Insulin Aspart (Novolog Insulin Pen) NOVOLOG *MODERATE* ALGORI... Q4 SC Last administered on 01/13/17 08:43; Admin Dose 2 UNIT; Start 01/09/17 at 14:15 Diagnostic Test (Pha) (Accu-Chek) 1 ea 02 XX Last administered on 01/13/17 02: 00; Admin Dose 1 EA; Start 01/10/17 at 02:00 Insulin Glargine 30 unit 30 unit DAILY@20 SC Last administered on 01/12/17 21: 30; Admin Dose 30 UNIT; Start 01/11/17 at 20:00 Caspofungin/ Sodium Chloride (Cancidas/NS) 250 ml @ 250 mls/hr Q24H IVPB Last administered on 01/13/17 10:42; Admin Dose 250 MLS/HR; Start 01/13/17 at 09:30 Metoprolol Tartrate (Lopressor) 50 mg BID PO Last administered on 01/13/17 08: 28; Admin Dose 50 MG; Start 01/12/17 at 21:00 Metoprolol Tartrate (Lopressor) 5 mg Q4 PRN IV FOR H.R>110; Start 01/12/17 at 17:30 Levetiracetam (Keppra) 1,000 mg DAILY PO Last administered on 01/13/17 08:28; Admin Dose 1,000 MG; Start 01/12/17 at 20:00 IKE MULLER Jan 13, 2017 11:20
--- NOTE | 2017-01-13 11:47 | CONS ---
Date/Time of Note Date/Time of Note DATE: 01/13/17 TIME: 11:43 Consult Date/Type/Reason Admit Date/Time Dec 02, 2016 at 21:01 Initial Consult Date 12/08/16 Type of Consultation: Neurology Reason for Consultation cardiopulmonary arrest with anoxic brain injury Ordering Provider: VIET PARKER MD Subjective no improvement in exam seen off sedation EEG suggestive of burst suppression pattern with epileptiform activity started Keppra 1 gram daily with additional 500 mg dose after dialysis Objective Vital Signs Date Time Temp Pulse Resp B/P Pulse Ox O2 Delivery O2 Flow Rate FiO2 01/13/17 11:00 86 15 115/53 100 Mechanical Ventilator 01/13/17 09:27 30 01/13/17 08:00 99.6 Intake and Output 01/12/17 01/12/17 01/13/17 15:00 23:00 07:00 Intake Total 1090 ml 940 ml 290 ml Output Total 2800 ml Balance -1710 ml 940 ml 290 ml Exam unable to open his eyes to verbal stimuli or sternal rub unable to follow any commands no purposeful movement unable to track examiner decreased blink to threat b/l CN: pupils sluggish reactive 2 mm b/l, gaze disconjugate, minimal oculcephalics , corneals are present weak gag reflex today Motor: no withdrawal to noxious stimuli extremities are flaccid throughout Reflexes: absent throughout toes are mute Results/Medications Result Diagram: 01/13/1724 01/13/17 0524 Results 24 hrs Laboratory Tests Test 01/12/17 12:04 01/12/17 17:33 01/12/17 21:27 01/13/17 01:35 Bedside Glucose 180 263 H 233 H 153 Test 01/13/17 05:23 01/13/17 05:24 01/13/17 08:41 Bedside Glucose 136 175 White Blood Count 9.4 Red Blood Count 3.05 L Hemoglobin 9.3 L Hematocrit 29.0 L Mean Corpuscular Volume 95.1 Mean Corpuscular Hemoglobin 30.5 Mean Corpuscular Hemoglobin Concent 32.1 Red Cell Distribution Width 13.0 Platelet Count 234 Mean Platelet Volume 10.1 Neutrophils % 74.6 Lymphocytes % 13.8 L Monocytes % 10.5 Eosinophils % 0.4 Basophils % 0.1 Nucleated Red Blood Cells % 0.0 Neutrophils # 7.0 Lymphocytes # 1.3 Monocytes # 1.0 H Eosinophils # 0.0 Basophils # 0.0 Nucleated Red Blood Cells # 0.0 Sodium Level 138 Potassium Level 4.3 Chloride Level 100 Carbon Dioxide Level 28 Anion Gap 14 Blood Urea Nitrogen 50 H Creatinine 2.75 H Glucose Level 131 # Calcium Level 8.6 Magnesium Level 2.2 Medications Current Medications Ondansetron HCl (Zofran Inj) 4 mg Q6H PRN IV NAUSEA AND/OR VOMITING Last administered on 12/13/16 01:13; Admin Dose 4 MG; Start 12/02/16 at 22:30 Miscellaneous Information 1 ea NOTE XX ; Start 12/02/16 at 23:00 Glucose (Glutose) 15 gm Q15M PRN PO DECREASED GLUCOSE; Start 12/02/16 at 23:00 Glucose (Glutose) 22.5 gm Q15M PRN PO DECREASED GLUCOSE; Start 12/02/16 at 23: 00 Dextrose (D50w Syringe) 25 ml Q15M PRN IV DECREASED GLUCOSE Last administered on 12/10/16 05:52; Admin Dose 25 ML; Start 12/02/16 at 23:00 Dextrose (D50w Syringe) 50 ml Q15M PRN IV DECREASED GLUCOSE; Start 12/02/16 at 23:00 Glucagon (Glucagen) 1 mg Q15M PRN IM DECREASED GLUCOSE; Start 12/02/16 at 23:00 Glucose (Glutose) 15 gm Q15M PRN BUCCAL DECREASED GLUCOSE; Start 12/02/16 at 23 :00 Gabapentin (Neurontin) 800 mg TID PO Last administered on 12/08/16 20:33; Admin Dose 800 MG; Start 12/03/16 at 09:00; Status Future Hold Meclizine HCl (Antivert) 25 mg TID PRN PO dizziness Last administered on 09:37; Admin Dose 25 MG; Start 12/02/16 at 23:00 Terazosin HCl (Hytrin) 5 mg HS PO Last administered on 12/07/16 20:28; Admin Dose 5 MG; Start 12/03/16 at 21:00; Status Future Hold Acetaminophen/ Hydrocodone Bitart ([place] (5/325)) 1 tab Q6H PRN PO PAIN LEVEL 4 -7 Last administered on 12/23/16 22:14; Admin Dose 1 TAB; Start 12/02/16 at 23: 30 Acetaminophen (Tylenol Tab) 650 mg Q6H PRN PO PAIN AND OR ELEVATED TEMP Last administered on 01/13/17 05:44; Admin Dose 650 MG; Start 12/02/16 at 23:30 Docusate Sodium (Colace) 100 mg BID PO Last administered on 12/08/16 20:32; Admin Dose 100 MG; Start 12/03/16 at 09:00; Status Future Hold Zolpidem Tartrate (Ambien) 5 mg HS PRN PO INSOMNIA Last administered on 20:53; Admin Dose 5 MG; Start 12/02/16 at 23:30 Benazepril HCl (Lotensin) 10 mg DAILY PO Last administered on 12/07/16 08:26; Admin Dose 10 MG; Start 12/04/16 at 09:00; Status Future Hold Morphine Sulfate (morphine) 2 mg Q2H PRN IV PAIN Last administered on 12/20/16 03:22; Admin Dose 2 MG; Start 12/09/16 at 09:30 Acetaminophen (Tylenol Supp) 650 mg Q6H PRN [place] ELEVATED TEMPERATURE Last administered on 12/09/16 17:53; Admin Dose 650 MG; Start 12/09/16 at 17:00 Hydralazine HCl (Apresoline) 10 mg Q6H PRN IV SBP>150mm hg Last administered on 12/19/16 08:50; Admin Dose 10 MG; Start 12/11/16 at 10:30 Morphine Sulfate (morphine) 2 mg Q2H PRN IV PAIN LEVEL 4-7; Start 12/13/16 at 10 :00 Pantoprazole (Protonix Tab) 40 mg DAILY@06 PO Last administered on 01/13/17 05: 44; Admin Dose 40 MG; Start 12/23/16 at 06:00 Aspirin (Halfprin) 81 mg DAILY PO Last administered on 01/13/17 08:28; Admin Dose 81 MG; Start 12/31/16 at 09:00 Apixaban (Eliquis) 2.5 mg BID PO Last administered on 01/13/17 08:27; Admin Dose 2.5 MG; Start 12/30/16 at 21:00 Amiodarone HCl (Cordarone) 200 mg DAILY PO Last administered on 01/13/17 08:27 ; Admin Dose 200 MG; Start 12/31/16 at 09:00 Collagenase 1 applic 1 applic DAILY TOP Last administered on 01/13/17 08:29; Admin Dose 1 APPLIC; Start 01/04/17 at 09:00 Propofol 100 ml @ 2.544 mls/ hr Q12H IV Last administered on 01/08/17 04:00; Admin Dose 2.544 MLS/HR; Start 01/08/17 at 04:00 Meropenem 100 ml @ 200 mls/hr Q24H IVPB Last administered on 01/12/17 21:23; Admin Dose 200 MLS/HR; Start 01/08/17 at 21:00 Linezolid (Zyvox 600mg/D5W (Pmx)) 300 ml @ 300 mls/hr Q12 IVPB Last administered on 01/13/17 08:26; Admin Dose 300 MLS/HR; Start 01/08/17 at 18:00 Insulin Aspart (Novolog Insulin Pen) NOVOLOG *MODERATE* ALGORI... Q4 SC Last administered on 01/13/17 08:43; Admin Dose 2 UNIT; Start 01/09/17 at 14:15 Diagnostic Test (Pha) (Accu-Chek) 1 ea 02 XX Last administered on 01/13/17 02: 00; Admin Dose 1 EA; Start 01/10/17 at 02:00 Insulin Glargine 30 unit 30 unit DAILY@20 SC Last administered on 01/12/17 21: 30; Admin Dose 30 UNIT; Start 01/11/17 at 20:00 Caspofungin/ Sodium Chloride (Cancidas/NS) 250 ml @ 250 mls/hr Q24H IVPB Last administered on 01/13/17 10:42; Admin Dose 250 MLS/HR; Start 01/13/17 at 09:30 Metoprolol Tartrate (Lopressor) 50 mg BID PO Last administered on 01/13/17 08: 28; Admin Dose 50 MG; Start 01/12/17 at 21:00 Metoprolol Tartrate (Lopressor) 5 mg Q4 PRN IV FOR H.R>110; Start 01/12/17 at 17:30 Levetiracetam (Keppra) 1,000 mg DAILY PO Last administered on 01/13/17t 08:28; Admin Dose 1,000 MG; Start 01/12/17 at 20:00 Assessment/Plan Chief Complaint/Hosp Course 66 year old male with prolonged hospitalization initially for cellulitis, OM, ARF requiring HD s/p cardiac arrest on 12/09 and again on 01/08 with suspected anoxic brain injury. Head CT on 01/10 shows mild white matter disease consistent with chronic small vessel ischemic changes. EEG shows burst suppression pattern with epileptiform activity, Keppra initiated per dialysis dosing. Recommendations: -burst suppression pattern is generally associated with a poor prognosis for meaningful neurologic recovery -continue on Keppra 1 gram daily and additional 500 mg dose after each dialysis for dialysis dosing -continue supportive care and goals of care discussion with family Problems: AYAH GERARD MD Jan 13, 2017 11:46
--- NOTE | 2017-01-13 11:49 | CONS ---
Date/Time of Note Date/Time of Note DATE: 01/13/17 TIME: 11:45 Assessment/Plan Assessment/Plan Chief Complaint/Hosp Course IMPRESSION: 1. Atrial fibrillation-Having episodes of PAF with reasonable rate control 2. Hypotension-borderline while on HD currently 3. Abnormal electrocardiogram with inferolateral T-wave inversions. 4. Respiratory failure-s/p intubation and remains 5. Nonhealing toe ulceration-vascular following 6. Peripheral arterial disease by arterial ultrasound of the lower extremities this admission. 7. Diabetes mellitus. 8. Fevers. 9. Positive troponin-downtrended 10.Bradycardia-improved/stable 11.-severe by echo 12.Cardiomyopathy-EF 40-45% by echo/36% by stress with no ischemia but positive scar. EF <30% by echo post arrest 14.Encephalopathy 15. s/p cardiopulmonary arrest 01/08 Recc: -Tele -serial ecg -HD for volume removal as tolerated -Continue baby asa/eliquis -Continue PO amio in attempt to maintain SR but will increase to BID -Continue BB as tolerated only following HR/BP closely -Will hold on afterload reduction given severe and thus fixed afterload at valve orifice -WEan vent as possible/tolerated Problems: Consultation Date/Type/Reason Admit Date/Time Dec 02, 2016 at 21:01 Initial Consult Date 12/03/16 Type of Consultation: Cardiology Reason for Consultation PAF/cardiomyopathy/CHF Referring Provider: VIET PRAKER MD Exam/Review of Systems Vital Signs Vitals Vital Signs Date Time Temp Pulse Resp B/P Pulse Ox O2 Delivery O2 Flow Rate FiO2 01/13/17 11:00 86 15 115/53 100 Mechanical Ventilator 01/13/17 09:27 30 01/13/17 08:00 99.6 Intake and Output 01/12/17 01/12/17 01/13/17 15:00 23:00 07:00 Intake Total 1090 ml 940 ml 290 ml Output Total 2800 ml Balance -1710 ml 940 ml 290 ml Exam Review of Systems: CONSTITUTIONAL: No fevers, chills. PULMONARY: intubated CARDIOVASCULAR: No obvious chest pain/palpitations GASTROINTESTINAL: No nausea/vomiting. GENITOURINARY: No hematuria/dysuria. MUSCULOSKELETAL: No obvious myagias/arthalgias. PSYCHIATRIC: NO documented depression. NEUROLOGIC: encephalopathy Constitutional: other (encephalopathic) Head: normocephalic ENMT: intubated Neck: jvd (9 cm water), supple Respiratory: diminished breath sounds (at bases/B) Cardiovascular: regular rate and rhythm Gastrointestinal: non-tender, soft Musculoskeletal: muscle tone (normal) Extremities: edema (trace/B) Neurological: other (encephalopathic) Results Result Diagram: 01/13/17 0524 01/13/17 0524 Results 24 hrs Laboratory Tests Test 01/12/17 12:04 01/12/17 17:33 01/12/17 21:27 01/13/17 01:35 Bedside Glucose 180 263 H 233 H 153 Test 01/13/17 05:23 01/13/17 05:24 01/13/17 08:41 Bedside Glucose 136 175 White Blood Count 9.4 Red Blood Count 3.05 L Hemoglobin 9.3 L Hematocrit 29.0 L Mean Corpuscular Volume 95.1 Mean Corpuscular Hemoglobin 30.5 Mean Corpuscular Hemoglobin Concent 32.1 Red Cell Distribution Width 13.0 Platelet Count 234 Mean Platelet Volume 10.1 Neutrophils % 74.6 Lymphocytes % 13.8 L Monocytes % 10.5 Eosinophils % 0.4 Basophils % 0.1 Nucleated Red Blood Cells % 0.0 Neutrophils # 7.0 Lymphocytes # 1.3 Monocytes # 1.0 H Eosinophils # 0.0 Basophils # 0.0 Nucleated Red Blood Cells # 0.0 Sodium Level 138 Potassium Level 4.3 Chloride Level 100 Carbon Dioxide Level 28 Anion Gap 14 Blood Urea Nitrogen 50 H Creatinine 2.75 H Glucose Level 131 # Calcium Level 8.6 Magnesium Level 2.2 Medications Medications Current Medications Ondansetron HCl (Zofran Inj) 4 mg Q6H PRN IV NAUSEA AND/OR VOMITING Last administered on 12/13/16 01:13; Admin Dose 4 MG; Start 12/02/16 at 22:30 Miscellaneous Information 1 ea NOTE XX ; Start 12/02/16 at 23:00 Glucose (Glutose) 15 gm Q15M PRN PO DECREASED GLUCOSE; Start 12/02/16 at 23:00 Glucose (Glutose) 22.5 gm Q15M PRN PO DECREASED GLUCOSE; Start 12/02/16 at 23: 00 Dextrose (D50w Syringe) 25 ml Q15M PRN IV DECREASED GLUCOSE Last administered on 12/10/16 05:52; Admin Dose 25 ML; Start 12/02/16 at 23:00 Dextrose (D50w Syringe) 50 ml Q15M PRN IV DECREASED GLUCOSE; Start 12/02/16 at 23:00 Glucagon (Glucagen) 1 mg Q15M PRN IM DECREASED GLUCOSE; Start 12/02/16 at 23:00 Glucose (Glutose) 15 gm Q15M PRN BUCCAL DECREASED GLUCOSE; Start 12/02/16 at 23 :00 Gabapentin (Neurontin) 800 mg TID PO Last administered on 12/08/16 20:33; Admin Dose 800 MG; Start 12/03/16 at 09:00; Status Future Hold Meclizine HCl (Antivert) 25 mg TID PRN PO dizziness Last administered on 09:37; Admin Dose 25 MG; Start 12/02/16 at 23:00 Terazosin HCl (Hytrin) 5 mg HS PO Last administered on 12/07/16 20:28; Admin Dose 5 MG; Start 12/03/16 at 21:00; Status Future Hold Acetaminophen/ Hydrocodone Bitart ([place] (5/325)) 1 tab Q6H PRN PO PAIN LEVEL 4 -7 Last administered on 12/23/16 22:14; Admin Dose 1 TAB; Start 12/02/16 at 23: 30 Acetaminophen (Tylenol Tab) 650 mg Q6H PRN PO PAIN AND [place] ELEVATED TEMP Last administered on 01/13/17 05:44; Admin Dose 650 MG; Start 12/02/16 at 23:30 Docusate Sodium (Colace) 100 mg BID PO Last administered on 12/08/16 20:32; Admin Dose 100 MG; Start 12/03/16 at 09:00; Status Future Hold Zolpidem Tartrate (Ambien) 5 mg HS PRN PO INSOMNIA Last administered on 20:53; Admin Dose 5 MG; Start 12/02/16 at 23:30 Benazepril HCl (Lotensin) 10 mg DAILY PO Last administered on 12/07/16 08:26; Admin Dose 10 MG; Start 12/04/16 at 09:00; Status Future Hold Morphine Sulfate (morphine) 2 mg Q2H PRN IV PAIN Last administered on 12/20/16 03:22; Admin Dose 2 MG; Start 12/09/16 at 09:30 Acetaminophen (Tylenol Supp) 650 mg Q6H PRN [place] ELEVATED TEMPERATURE Last administered on 12/09/16 17:53; Admin Dose 650 MG; Start 12/09/16 at 17:00 Hydralazine HCl (Apresoline) 10 mg Q6H PRN IV SBP>150mm hg Last administered on 12/19/16 08:50; Admin Dose 10 MG; Start 12/11/16 at 10:30 Morphine Sulfate (morphine) 2 mg Q2H PRN IV PAIN LEVEL 4-7; Start 12/13/16 at 10 :00 Pantoprazole (Protonix Tab) 40 mg DAILY@06 PO Last administered on 01/13/17 05: 44; Admin Dose 40 MG; Start 12/23/16 at 06:00 Aspirin (Halfprin) 81 mg DAILY PO Last administered on 01/13/17 08:28; Admin Dose 81 MG; Start 12/31/16 at 09:00 Apixaban (Eliquis) 2.5 mg BID PO Last administered on 01/13/17 08:27; Admin Dose 2.5 MG; Start 12/30/16 at 21:00 Amiodarone HCl (Cordarone) 200 mg DAILY PO Last administered on 01/13/17 08:27 ; Admin Dose 200 MG; Start 12/31/16 at 09:00 Collagenase 1 applic 1 applic DAILY TOP Last administered on 01/13/17 08:29; Admin Dose 1 APPLIC; Start 01/04/17 at 09:00 Propofol 100 ml @ 2.544 mls/ hr Q12H IV Last administered on 01/08/17 04:00; Admin Dose 2.544 MLS/HR; Start 01/08/17 at 04:00 Meropenem 100 ml @ 200 mls/hr Q24H IVPB Last administered on 01/12/17 21:23; Admin Dose 200 MLS/HR; Start 01/08/17 at 21:00 Linezolid (Zyvox 600mg/D5W (Pmx)) 300 ml @ 300 mls/hr Q12 IVPB Last administered on 01/13/17 08:26; Admin Dose 300 MLS/HR; Start 01/08/17 at 18:00 Insulin Aspart (Novolog Insulin Pen) NOVOLOG *MODERATE* ALGORI... Q4 SC Last administered on 01/13/17 08:43; Admin Dose 2 UNIT; Start 01/09/17 at 14:15 Diagnostic Test (Pha) (Accu-Chek) 1 ea 02 XX Last administered on 01/13/17 02: 00; Admin Dose 1 EA; Start 01/10/17 at 02:00 Insulin Glargine 30 unit 30 unit DAILY@20 SC Last administered on 01/12/17 21: 30; Admin Dose 30 UNIT; Start 01/11/17 at 20:00 Caspofungin/ Sodium Chloride (Cancidas/NS) 250 ml @ 250 mls/hr Q24H IVPB Last administered on 01/13/17 10:42; Admin Dose 250 MLS/HR; Start 01/13/17 at 09:30 Metoprolol Tartrate (Lopressor) 50 mg BID PO Last administered on 01/13/17 08: 28; Admin Dose 50 MG; Start 01/12/17 at 21:00 Metoprolol Tartrate (Lopressor) 5 mg Q4 PRN IV FOR H.R>110; Start 01/12/17 at 17:30 Levetiracetam (Keppra) 1,000 mg DAILY PO Last administered on 01/13/17 08:28; Admin Dose 1,000 MG; Start 01/12/17 at 20:00 VICENTE LESLIE Jan 13, 2017 11:49
--- NOTE | 2017-01-13 17:39 | CONS ---
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 Blood cultures from HD catheter on 12/13/2016 are negative to date. 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 MRI on 12/06/2016 and bone scan on showed 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 and left fourth proximal phalanx. superficial swab grew inna only - s/p right pleural effusion s/p thoracentesis with .9L removed on 12/16/2016 - severe , EF 40-45% per TTE 12/17/16 - DM - Hgb A1c 8.7% - HTN associated with DM Plan: S/p HD today, pt had a 3 days of HD in a row,no HD today, HD ordered for tomorrow S/p EEG showed epileptiform activity- stared on keppra by Neurology S/P family metting yesterday- Full Code pt has severe , very labile BP sometimes with HD will continue to follow up on patient Consultation Date/Type/Reason Admit Date/Time Dec 02, 2016 at 21:01 Initial Consult Date Type of Consultation: NEPHROLOGY Referring Provider: VIET PARKER MD 24 HR Interval Summary Free Text/Dictation s/p HD yesterday, remains intubated, BP labile, Exam/Review of Systems Vital Signs Vitals Vital Signs Date Time Temp Pulse Resp B/P Pulse Ox O2 Delivery O2 Flow Rate FiO2 01/13/17 17:04 87 20 100 30 01/13/17 16:00 98.7 112/64 Mechanical Ventilator Intake and Output 01/12/17 01/12/17 01/13/17 15:00 23:00 07:00 Intake Total 1090 ml 940 ml 290 ml Output Total 2800 ml Balance -1710 ml 940 ml 290 ml Exam General: intubated, sedated HEENT: Et tube in place NECK: JVD elevated, no thyromegaly, intubated HEART: regular with no S3, II/ systolic murmur at apex, PMi L LUNGS: Coarse sounds ABD: soft, NT, ND, +BS Neuro: non focal SKIN: chronic changes EXT: trace edema Results Result Diagram: 01/13/1752301/13/17523 Results 24 hrs Laboratory Tests Test 01/12/17 21:27 01/13/17 01:35 01/13/17 05:23 01/13/17 05:24 Bedside Glucose 233 H 153 136 White Blood Count 9.4 Red Blood Count 3.05 L Hemoglobin 9.3 L Hematocrit 29.0 L Mean Corpuscular Volume 95.1 Mean Corpuscular Hemoglobin 30.5 Mean Corpuscular Hemoglobin Concent 32.1 Red Cell Distribution Width 13.0 Platelet Count 234 Mean Platelet Volume 10.1 Neutrophils % 74.6 Lymphocytes % 13.8 L Monocytes % 10.5 Eosinophils % 0.4 Basophils % 0.1 Nucleated Red Blood Cells % 0.0 Neutrophils # 7.0 Lymphocytes # 1.3 Monocytes # 1.0 H Eosinophils # 0.0 Basophils # 0.0 Nucleated Red Blood Cells # 0.0 Sodium Level 138 Potassium Level 4.3 Chloride Level 100 Carbon Dioxide Level 28 Anion Gap 14 Blood Urea Nitrogen 50 H Creatinine 2.75 H Glucose Level 131 # Calcium Level 8.6 Magnesium Level 2.2 Test 01/13/17 08:41 01/13/17 12:47 01/13/17 16:23 Bedside Glucose 175 215 210 Medications Medications Current Medications Ondansetron HCl (Zofran Inj) 4 mg Q6H PRN IV NAUSEA AND/OR VOMITING Last administered on 12/13/16t 01:13; Admin Dose 4 MG; Start 12/02/16 at 22:30 Miscellaneous Information 1 ea NOTE XX ; Start 12/02/16 at 23:00 Glucose (Glutose) 15 gm Q15M PRN PO DECREASED GLUCOSE; Start 12/02/16 at 23:00 Glucose (Glutose) 22.5 gm Q15M PRN PO DECREASED GLUCOSE; Start 12/02/16 at 23: 00 Dextrose (D50w Syringe) 25 ml Q15M PRN IV DECREASED GLUCOSE Last administered on 12/10/16 05:52; Admin Dose 25 ML; Start 12/02/16 at 23:00 Dextrose (D50w Syringe) 50 ml Q15M PRN IV DECREASED GLUCOSE; Start 12/02/16 at 23:00 Glucagon (Glucagen) 1 mg Q15M PRN IM DECREASED GLUCOSE; Start 12/02/16 at 23:00 Glucose (Glutose) 15 gm Q15M PRN BUCCAL DECREASED GLUCOSE; Start 12/02/16 at 23 :00 Gabapentin (Neurontin) 800 mg TID PO Last administered on 12/08/16 20:33; Admin Dose 800 MG; Start 12/03/16 at 09:00; Status Future Hold Meclizine HCl (Antivert) 25 mg TID PRN PO dizziness Last administered on 09:37; Admin Dose 25 MG; Start 12/02/16 at 23:00 Terazosin HCl (Hytrin) 5 mg HS PO Last administered on 12/07/16 20:28; Admin Dose 5 MG; Start 12/03/16 at 21:00; Status Future Hold Acetaminophen/ Hydrocodone Bitart ([place] (5/325)) 1 tab Q6H PRN PO PAIN LEVEL 4 -7 Last administered on 12/23/16 22:14; Admin Dose 1 TAB; Start 12/02/16 at 23: 30 Acetaminophen (Tylenol Tab) 650 mg Q6H PRN PO PAIN AND OR ELEVATED TEMP Last administered on 01/13/17 05:44; Admin Dose 650 MG; Start 12/02/16 at 23:30 Docusate Sodium (Colace) 100 mg BID PO Last administered on 12/08/16 20:32; Admin Dose 100 MG; Start 12/03/16 at 09:00; Status Future Hold Zolpidem Tartrate (Ambien) 5 mg HS PRN PO INSOMNIA Last administered on 20:53; Admin Dose 5 MG; Start 12/02/16 at 23:30 Benazepril HCl (Lotensin) 10 mg DAILY PO Last administered on 12/07/16 08:26; Admin Dose 10 MG; Start 12/04/16 at 09:00; Status Future Hold Morphine Sulfate (morphine) 2 mg Q2H PRN IV PAIN Last administered on 12/20/16 03:22; Admin Dose 2 MG; Start 12/09/16 at 09:30 Acetaminophen (Tylenol Supp) 650 mg Q6H PRN [place] ELEVATED TEMPERATURE Last administered on 12/09/16 17:53; Admin Dose 650 MG; Start 12/09/16 at 17:00 Hydralazine HCl (Apresoline) 10 mg Q6H PRN IV SBP>150mm hg Last administered on 12/19/16 08:50; Admin Dose 10 MG; Start 12/11/16 at 10:30 Morphine Sulfate (morphine) 2 mg Q2H PRN IV PAIN LEVEL 4-7; Start 12/13/16 at 10 :00 Pantoprazole (Protonix Tab) 40 mg DAILY@06 PO Last administered on 01/13/17 05: 44; Admin Dose 40 MG; Start 12/23/16 at 06:00 Aspirin (Halfprin) 81 mg DAILY PO Last administered on 01/13/17 08:28; Admin Dose 81 MG; Start 12/31/16 at 09:00 Apixaban (Eliquis) 2.5 mg BID PO Last administered on 01/13/17 08:27; Admin Dose 2.5 MG; Start 12/30/16 at 21:00 Collagenase 1 applic 1 applic DAILY TOP Last administered on 01/13/17 08:29; Admin Dose 1 APPLIC; Start 01/04/17 at 09:00 Propofol 100 ml @ 2.544 mls/ hr Q12H IV Last administered on 01/08/17 04:00; Admin Dose 2.544 MLS/HR; Start 01/08/17 at 04:00 Meropenem 100 ml @ 200 mls/hr Q24H IVPB Last administered on 01/12/17 21:23; Admin Dose 200 MLS/HR; Start 01/08/17 at 21:00 Linezolid (Zyvox 600mg/D5W (Pmx)) 300 ml @ 300 mls/hr Q12 IVPB Last administered on 01/13/17 08:26; Admin Dose 300 MLS/HR; Start 01/08/17 at 18:00 Insulin Aspart (Novolog Insulin Pen) NOVOLOG *MODERATE* ALGORI... Q4 SC Last administered on 01/13/17 16:27; Admin Dose 4 UNIT; Start 01/09/17 at 14:15 Diagnostic Test (Pha) (Accu-Chek) 1 ea 02 XX Last administered on 01/13/17 02: 00; Admin Dose 1 EA; Start 01/10/17 at 02:00 Insulin Glargine 30 unit 30 unit DAILY@20 SC Last administered on 01/12/17 21: 30; Admin Dose 30 UNIT; Start 01/11/17 at 20:00 Caspofungin/ Sodium Chloride (Cancidas/NS) 250 ml @ 250 mls/hr Q24H IVPB Last administered on 01/13/17 10:42; Admin Dose 250 MLS/HR; Start 01/13/17 at 09:30 Metoprolol Tartrate (Lopressor) 50 mg BID PO Last administered on 01/13/17 08: 28; Admin Dose 50 MG; Start 01/12/17 at 21:00 Metoprolol Tartrate (Lopressor) 5 mg Q4 PRN IV FOR H.R>110; Start 01/12/17 at 17:30 Levetiracetam (Keppra) 1,000 mg DAILY PO Last administered on 01/13/17 08:28; Admin Dose 1,000 MG; Start 01/12/17 at 20:00 Amiodarone HCl (Cordarone) 200 mg BID PO ; Start 01/13/17 at 21:00 TASHIA MCGARRY MD Jan 13, 2017 17:39
[2017-01-13] MEDS ORDERED: ZOLPIDEM 5 MG TAB NGT PRN (20:00)
[2017-01-13] MEDS ORDERED: MECLIZINE 25 MG TAB NGT PRN (20:00)
[2017-01-13] MEDS: INSULIN GLARGINE [LANtus] 3 ML PEN SC SCH (20:26)
[2017-01-13] MEDS: DOCUSATE SODIUM 10 MG/ML (10ML CUP) NGT SCH (20:29)
[2017-01-13] MEDS: AMIODARONE 200 MG TAB NGT SCH (20:30)
[2017-01-13] MEDS: APIXABAN 5 MG TABLET NGT SCH (20:30)
[2017-01-13] MEDS: MEROPENEM 500 MG/100 ML (PMX) 100 ML IVPB SCH (20:31)
[2017-01-13] MEDS: ACETAMINOPHEN 650 MG SUPP PR PRN (20:32)
[2017-01-13] MEDS ORDERED: TERAZOSIN 5 MG CAP NGT SCH (21:00)
[2017-01-13] MEDS ORDERED: AMIODARONE 200 MG TAB PO SCH (21:00)
[2017-01-13] MEDS: METOPROLOL 50 MG TAB NGT SCH (21:12)
[2017-01-13] MEDS ORDERED: HYDROCODONE/APAP (5/325) TAB NGT PRN (23:30)
[2017-01-14] VITALS (46 sets, daily range): BP systolic 82–137; BP diastolic 37–79; PULSE 59–107; RESP 16–25
[2017-01-14] MEDS: ALBUTEROL 18 GM INHALER INH SCH ×4 (01:10→19:19)
[2017-01-14] MEDS: ACCU-CHEK XX SCH (01:20)
[2017-01-14] MEDS: INSULIN ASPART [NOVOLOG] 3 ML PEN SC SCH ×6 (01:21→20:43)
[2017-01-14] MEDS: PROPOFOL 100 ML IV SCH ×2 (04:00→16:00)
[2017-01-14] MEDS: PANTOPRAZOLE 40 MG INJ IV SCH (05:20)
[2017-01-14 07:10] LABS: ALBUMIN 4.2 g/dl (3.3-4.9); ALBUMIN/GLOBULIN RATIO 1.35; BILIRUBIN,INDIRECT 0.5 mg/dl (0-1.1); BILIRUBIN,TOTAL 0.5 mg/dl (0.2-1.3); CALCIUM 8.6 mg/dl (8.4-10.2); CREATININE 3.24 mg/dl (0.61-1.24); POTASSIUM 4.4 mmol/L (3.5-5.1); TOTAL PROTEIN 7.3 g/dl (6.1-8.1)
[2017-01-14] MEDS: APIXABAN 5 MG TABLET NGT SCH ×2 (08:09→20:26)
[2017-01-14] MEDS: ASPIRIN 81 MG TAB NGT SCH (08:09)
[2017-01-14] MEDS: DOCUSATE SODIUM 10 MG/ML (10ML CUP) NGT SCH ×2 (08:09→20:26)
[2017-01-14] MEDS: LEVETIRACETAM (100 MG/ML) 5ML CUP NGT SCH ×2 (08:10→19:01)
[2017-01-14] MEDS: AMIODARONE 200 MG TAB NGT SCH ×2 (08:10→20:26)
[2017-01-14] MEDS: LINEZOLID 600 MG/D5W (PMX) 300 ML IVPB SCH ×2 (08:10→20:26)
[2017-01-14] MEDS: COLLAGENASE 30 GM TUBE TOP SCH (08:11)
[2017-01-14] MEDS: METOPROLOL 50 MG TAB NGT SCH ×2 (09:00→20:28)
[2017-01-14] MEDS: CASPOFUNGIN 50 MG in SOD CHLORIDE 0.9% 250 ML IVPB SCH (09:30)
--- NOTE | 2017-01-14 09:53 | CONS ---
Date/Time of Note Date/Time of Note DATE: 01/14/17 TIME: 09:50 Assessment/Plan Assessment/Plan Chief Complaint/Hosp Course - recurrent cardiopulmonary arrest on 12/09/2016 and on 01/08/2017 - SIRS vs. sepsis, although cultures have been negative - possible aspiration pneumonia based on CXR vs. 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 Blood cultures from HD catheter on 12/13/2016 are negative to date. 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 MRI on 12/06/2016 and bone scan on showed 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 and left fourth proximal phalanx. superficial swab grew inna only. At present, no e/o persistent infection - s/p right pleural effusion s/p thoracentesis with .9L removed on 12/16/2016; ( Note: there is no pleural fluid cx since orders were placed after Right thoracentesis, and Left thoracentesis was not performed on 12/17/16 d/t insufficient fluid) - funguria - ARANZA, on HD from 12/09/2016 - oliguria - A fib - small nonreversible perfusion abnormality in the inferoapical and inferior carver; EF 36% per Lexiscan 12/24/2016 - severe , EF 40-45% per TTE 12/17/16 - DM - Hgb A1c 8.7% - HTN associated with DM - recurrent episodes of respiratory failure - acute encephalopathy - stage 3 decubitus ulcer of coccyx without evidence of infection recommendations: - ordered: screening CT chest/abd/pel to r/o possible deep seated infections, repeat blood cultures from HD catheter and by phlebotomy - pending results: repeat resp culture from 01/13/2017, surveillance blood cultures from HD catheter at time of HD from 01/12/2017 - continue meropenem and linezolid empirically (01/08/2017-), caspofungin empirically (01/12/2017-) - will monitor CBC while Pt's on linezolid - will adjust his antibiotics depending on his culture results and his clinical status - Pt needs 6 weeks of antibiotics to treat 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 and left fourth proximal phalanx: 12/03/2016 through 01/15/2017 (s/p pip/tazo 12/03/16-01/08/17) - wound care of L 1st toe and coccyx management d/w Pt's RN the critical care time I took to care for this Pt today was from 0900 to 0935 Problems: Consultation Date/Type/Reason Admit Date/Time Dec 02, 2016 at 21:01 Initial Consult Date 12/03/16 Type of Consultation: ID Referring Provider: VIET PARKER MD 24 HR Interval Summary Subjective hx not possible: pt non-verbal, pt critical, pt critical status Exam/Review of Systems Vital Signs Vitals Vital Signs Date Time Temp Pulse Resp B/P Pulse Ox O2 Delivery O2 Flow Rate FiO2 01/14/17 08:00 78 17 116/54 100 Mechanical Ventilator 01/14/17 07:25 30 01/14/17 04:00 99.1 Intake and Output 01/13/17 01/13/17 01/14/17 15:00 23:00 07:00 Intake Total 290 ml 1180 ml 260 ml Balance 290 ml 1180 ml 260 ml Exam Constitutional: frail, non-verbal Psych: confusion Head: atraumatic, normocephalic Eyes: nl conjunctiva, nl lids ENMT: intubated, other (NGT) Respiratory: crackles/rales, diminished breath sounds Cardiovascular: nl pulses, regular rate and rhythm Gastrointestinal: non-tender, soft, No distended, No firm, No tender Genitourinary - Male: nl penis, nl scrotum Musculoskeletal: nl extremities to inspection Extremities: No edema Neurological: lethargic Skin: nl turgor Results Result Diagram: 01/13/17 0524 01/14/17 0548 Results 24 hrs Laboratory Tests Test 01/13/17 12:47 01/13/17 16:23 01/13/17 20:25 01/14/17 01:19 Bedside Glucose 215 210 176 172 Test 01/14/17 05:16 01/14/17 05:48 01/14/17 08:34 Bedside Glucose 168 193 Sodium Level 144 Potassium Level 4.4 Chloride Level 99 Carbon Dioxide Level 28 Anion Gap 21 #H Blood Urea Nitrogen 69 H Creatinine 3.24 H Glucose Level 173 Calcium Level 8.6 Total Bilirubin 0.5 Direct Bilirubin 0.00 Indirect Bilirubin 0.5 Aspartate Amino Transf (AST/SGOT) 25 Alanine Aminotransferase (ALT/SGPT) 19 Alkaline Phosphatase 74 Total Protein 7.3 Albumin 4.2 Globulin 3.10 Albumin/Globulin Ratio 1.35 Medications Medications Current Medications Ondansetron HCl (Zofran Inj) 4 mg Q6H PRN IV NAUSEA AND/OR VOMITING Last administered on 12/13/16 01:13; Admin Dose 4 MG; Start 12/02/16 at 22:30 Miscellaneous Information 1 ea NOTE XX ; Start 12/02/16 at 23:00 Glucose (Glutose) 15 gm Q15M PRN PO DECREASED GLUCOSE; Start 12/02/16 at 23:00 Glucose (Glutose) 22.5 gm Q15M PRN PO DECREASED GLUCOSE; Start 12/02/16 at 23: 00 Dextrose (D50w Syringe) 25 ml Q15M PRN IV DECREASED GLUCOSE Last administered on 12/10/16 05:52; Admin Dose 25 ML; Start 12/02/16 at 23:00 Dextrose (D50w Syringe) 50 ml Q15M PRN IV DECREASED GLUCOSE; Start 12/02/16 at 23:00 Glucagon (Glucagen) 1 mg Q15M PRN IM DECREASED GLUCOSE; Start 12/02/16 at 23:00 Glucose (Glutose) 15 gm Q15M PRN BUCCAL DECREASED GLUCOSE; Start 12/02/16 at 23 :00 Gabapentin (Neurontin) 800 mg TID PO Last administered on 12/08/16 20:33; Admin Dose 800 MG; Start 12/03/16 at 09:00; Status Future Hold Benazepril HCl (Lotensin) 10 mg DAILY PO Last administered on 12/07/16 08:26; Admin Dose 10 MG; Start 12/04/16 at 09:00; Status Future Hold Morphine Sulfate (morphine) 2 mg Q2H PRN IV PAIN Last administered on 12/20/16 03:22; Admin Dose 2 MG; Start 12/09/16 at 09:30 Acetaminophen (Tylenol Supp) 650 mg Q6H PRN [place] ELEVATED TEMPERATURE Last administered on 01/13/17 20:32; Admin Dose 650 MG; Start 12/09/16 at 17:00 Hydralazine HCl (Apresoline) 10 mg Q6H PRN IV SBP>150mm hg Last administered on 12/19/16 08:50; Admin Dose 10 MG; Start 12/11/16 at 10:30 Morphine Sulfate (morphine) 2 mg Q2H PRN IV PAIN LEVEL 4-7; Start 12/13/16 at 10 :00 Collagenase 1 applic 1 applic DAILY TOP Last administered on 01/14/17 08:11; Admin Dose 1 APPLIC; Start 01/04/17 at 09:00 Propofol 100 ml @ 2.544 mls/ hr Q12H IV Last administered on 01/08/17 04:00; Admin Dose 2.544 MLS/HR; Start 01/08/17 at 04:00 Meropenem 100 ml @ 200 mls/hr Q24H IVPB Last administered on 01/13/17 20:31; Admin Dose 200 MLS/HR; Start 01/08/17 at 21:00 Linezolid (Zyvox 600mg/D5W (Pmx)) 300 ml @ 300 mls/hr Q12 IVPB Last administered on 01/14/17 08:10; Admin Dose 300 MLS/HR; Start 01/08/17 at 18:00 Insulin Aspart (Novolog Insulin Pen) NOVOLOG *MODERATE* ALGORI... Q4 SC Last administered on 01/14/17 08:37; Admin Dose 4 UNIT; Start 01/09/17 at 14:15 Diagnostic Test (Pha) (Accu-Chek) 1 ea 02 XX Last administered on 01/13/17 02: 00; Admin Dose 1 EA; Start 01/10/17 at 02:00 Insulin Glargine 30 unit 30 unit DAILY@20 SC Last administered on 01/13/17 20: 26; Admin Dose 30 UNIT; Start 01/11/17 at 20:00 Caspofungin/ Sodium Chloride (Cancidas/NS) 250 ml @ 250 mls/hr Q24H IVPB Last administered on 01/13/17 10:42; Admin Dose 250 MLS/HR; Start 01/13/17 at 09:30 Metoprolol Tartrate (Lopressor) 5 mg Q4 PRN IV FOR H.R>110; Start 01/12/17 at 17:30 Acetaminophen (Tylenol Liquid) 650 mg Q6H PRN NGT PAIN AND OR ELEVATED TEMP; Start 01/13/17 at 23:30 Amiodarone HCl (Cordarone) 200 mg BID NGT Last administered on 01/14/17 08:10; Admin Dose 200 MG; Start 01/13/17 at 21:00 Apixaban (Eliquis) 2.5 mg BID NGT Last administered on 01/14/17 08:09; Admin Dose 2.5 MG; Start 01/13/17 at 21:00 Acetaminophen/ Hydrocodone Bitart ([place] (5/325)) 1 tab Q6H PRN NGT PAIN LEVEL 4-7; Start 01/13/17 at 23:30 Levetiracetam (Keppra Liquid) 1,000 mg DAILY NGT Last administered on 01/14/17 08:10; Admin Dose 1,000 MG; Start 01/14/17 at 09:00 Meclizine HCl (Antivert) 25 mg TID PRN NGT dizziness; Start 01/13/17 at 20:00 Metoprolol Tartrate (Lopressor) 50 mg BID NGT Last administered on 01/13/17 21: 12; Admin Dose 50 MG; Start 01/13/17 at 21:00 Zolpidem Tartrate (Ambien) 5 mg HS PRN NGT INSOMNIA; Start 01/13/17 at 20:00 Aspirin (Aspirin) 81 mg DAILY NGT Last administered on 01/14/17 08:09; Admin Dose 81 MG; Start 01/14/17 at 09:00 Docusate Sodium (Colace Liquid Cup) 100 mg BID NGT Last administered on 08:09; Admin Dose 100 MG; Start 01/13/17 at 21:00 Pantoprazole (Protonix Iv) 40 mg DAILY@06 IV Last administered on 01/14/17 05: 20; Admin Dose 40 MG; Start 01/14/17 at 06:00 CHRISTY LOPEZ M.D. Jan 14, 2017 09:52
--- NOTE | 2017-01-14 10:14 | CONS ---
Date/Time of Note Date/Time of Note DATE: 01/14/17 TIME: 10:10 Assessment/Plan Assessment/Plan Additional Assessment/Plan Ventilator setting; AC of 16, tidal volume 500, PEEP of 5, 30% FiO2. Next Assessment recommendations; 1. Patient admitted for cellulitis then developed renal failure requiring hemodialysis. 2. Respiratory failure from flash pulmonary edema from underlying cardiomyopathy. 3. Status post CPR with likely resulting anoxic brain injury. 4. Pneumonia. 5. End-stage renal disease, on hemodialysis. Continue current treatment. Will obtain follow-up chest x-ray. Prognosis is poor. Consultation Date/Type/Reason Admit Date/Time Dec 02, 2016 at 21:01 Initial Consult Date 12/03/16 Type of Consultation: Pulmonary/critical care Referring Provider: VIET PARKER MD 24 HR Interval Summary Free Text/Dictation Patient's condition remains critical. Remains essentially unresponsive. However patient does have spontaneous eye opening. But does not follow any commands. Has remained hemodynamically stable. No untoward events reported. General exam; elderly male, on ventilator via endotracheal tube. Somewhat arousable, currently in no distress. Exam/Review of Systems Vital Signs Vitals Vital Signs Date Time Temp Pulse Resp B/P Pulse Ox O2 Delivery O2 Flow Rate FiO2 01/14/17 08:00 78 17 116/54 100 Mechanical Ventilator 01/14/17 07:25 30 01/14/17 04:00 99.1 Intake and Output 01/13/17 01/13/17 01/14/17 15:00 23:00 07:00 Intake Total 290 ml 1180 ml 260 ml Balance 290 ml 1180 ml 260 ml Exam HEENT exam is; supple neck, positive JVD. No lymphadenopathy. Midline trachea. No thyromegaly. Pupils are small bilaterally. Orally intubated. Patient is edentulous. Chest examined; diminished breath on lung bases bilaterally. S1-S2 audible, no murmurs. Regular rhythm. Abdomen examination; soft, nondistended. No organomegaly. G-tube in place. Bowel sounds audible. Extremity exam; no peripheral edema. 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 Results Result Diagram: 01/13/17 0524 01/14/17 0548 Results 24 hrs Laboratory Tests Test 01/13/17 12:47 01/13/17 16:23 01/13/17 20:25 01/14/17 01:19 Bedside Glucose 215 210 176 172 Test 01/14/17 05:16 01/14/17 05:48 01/14/17 08:34 Bedside Glucose 168 193 Sodium Level 144 Potassium Level 4.4 Chloride Level 99 Carbon Dioxide Level 28 Anion Gap 21 #H Blood Urea Nitrogen 69 H Creatinine 3.24 H Glucose Level 173 Calcium Level 8.6 Total Bilirubin 0.5 Direct Bilirubin 0.00 Indirect Bilirubin 0.5 Aspartate Amino Transf (AST/SGOT) 25 Alanine Aminotransferase (ALT/SGPT) 19 Alkaline Phosphatase 74 Total Protein 7.3 Albumin 4.2 Globulin 3.10 Albumin/Globulin Ratio 1.35 Medications Medications Current Medications Ondansetron HCl (Zofran Inj) 4 mg Q6H PRN IV NAUSEA AND/OR VOMITING Last administered on 12/13/16 01:13; Admin Dose 4 MG; Start 12/02/16 at 22:30 Miscellaneous Information 1 ea NOTE XX ; Start 12/02/16 at 23:00 Glucose (Glutose) 15 gm Q15M PRN PO DECREASED GLUCOSE; Start 12/02/16 at 23:00 Glucose (Glutose) 22.5 gm Q15M PRN PO DECREASED GLUCOSE; Start 12/02/16 at 23: 00 Dextrose (D50w Syringe) 25 ml Q15M PRN IV DECREASED GLUCOSE Last administered on 12/10/16 05:52; Admin Dose 25 ML; Start 12/02/16 at 23:00 Dextrose (D50w Syringe) 50 ml Q15M PRN IV DECREASED GLUCOSE; Start 12/02/16 at 23:00 Glucagon (Glucagen) 1 mg Q15M PRN IM DECREASED GLUCOSE; Start 12/02/16 at 23:00 Glucose (Glutose) 15 gm Q15M PRN BUCCAL DECREASED GLUCOSE; Start 12/02/16 at 23 :00 Gabapentin (Neurontin) 800 mg TID PO Last administered on 12/08/16 20:33; Admin Dose 800 MG; Start 12/03/16 at 09:00; Status Future Hold Benazepril HCl (Lotensin) 10 mg DAILY PO Last administered on 12/07/16 08:26; Admin Dose 10 MG; Start 12/04/16 at 09:00; Status Future Hold Morphine Sulfate (morphine) 2 mg Q2H PRN IV PAIN Last administered on 12/20/16 03:22; Admin Dose 2 MG; Start 12/09/16 at 09:30 Acetaminophen (Tylenol Supp) 650 mg Q6H PRN [place] ELEVATED TEMPERATURE Last administered on 01/13/17 20:32; Admin Dose 650 MG; Start 12/09/16 at 17:00 Hydralazine HCl (Apresoline) 10 mg Q6H PRN IV SBP>150mm hg Last administered on 12/19/16 08:50; Admin Dose 10 MG; Start 12/11/16 at 10:30 Morphine Sulfate (morphine) 2 mg Q2H PRN IV PAIN LEVEL 4-7; Start 12/13/16 at 10 :00 Collagenase 1 applic 1 applic DAILY TOP Last administered on 01/14/17 08:11; Admin Dose 1 APPLIC; Start 01/04/17 at 09:00 Propofol 100 ml @ 2.544 mls/ hr Q12H IV Last administered on 01/08/17 04:00; Admin Dose 2.544 MLS/HR; Start 01/08/17 at 04:00 Meropenem 100 ml @ 200 mls/hr Q24H IVPB Last administered on 01/13/17 20:31; Admin Dose 200 MLS/HR; Start 01/08/17 at 21:00 Linezolid (Zyvox 600mg/D5W (Pmx)) 300 ml @ 300 mls/hr Q12 IVPB Last administered on 01/14/17 08:10; Admin Dose 300 MLS/HR; Start 01/08/17 at 18:00 Insulin Aspart (Novolog Insulin Pen) NOVOLOG *MODERATE* ALGORI... Q4 SC Last administered on 01/14/17 08:37; Admin Dose 4 UNIT; Start 01/09/17 at 14:15 Diagnostic Test (Pha) (Accu-Chek) 1 ea 02 XX Last administered on 01/13/17 02: 00; Admin Dose 1 EA; Start 01/10/17 at 02:00 Insulin Glargine 30 unit 30 unit DAILY@20 SC Last administered on 01/13/17 20: 26; Admin Dose 30 UNIT; Start 01/11/17 at 20:00 Caspofungin/ Sodium Chloride (Cancidas/NS) 250 ml @ 250 mls/hr Q24H IVPB Last administered on 01/13/17 10:42; Admin Dose 250 MLS/HR; Start 01/13/17 at 09:30 Metoprolol Tartrate (Lopressor) 5 mg Q4 PRN IV FOR H.R>110; Start 01/12/17 at 17:30 Acetaminophen (Tylenol Liquid) 650 mg Q6H PRN NGT PAIN AND OR ELEVATED TEMP; Start 01/13/17 at 23:30 Amiodarone HCl (Cordarone) 200 mg BID NGT Last administered on 01/14/17 08:10; Admin Dose 200 MG; Start 01/13/17 at 21:00 Apixaban (Eliquis) 2.5 mg BID NGT Last administered on 01/14/17 08:09; Admin Dose 2.5 MG; Start 01/13/17 at 21:00 Acetaminophen/ Hydrocodone Bitart ([place] (5/325)) 1 tab Q6H PRN NGT PAIN LEVEL 4-7; Start 01/13/17 at 23:30 Levetiracetam (Keppra Liquid) 1,000 mg DAILY NGT Last administered on 01/14/17 08:10; Admin Dose 1,000 MG; Start 01/14/17 at 09:00 Meclizine HCl (Antivert) 25 mg TID PRN NGT dizziness; Start 01/13/17 at 20:00 Metoprolol Tartrate (Lopressor) 50 mg BID NGT Last administered on 01/13/17 21: 12; Admin Dose 50 MG; Start 01/13/17 at 21:00 Zolpidem Tartrate (Ambien) 5 mg HS PRN NGT INSOMNIA; Start 01/13/17 at 20:00 Aspirin (Aspirin) 81 mg DAILY NGT Last administered on 01/14/17 08:09; Admin Dose 81 MG; Start 01/14/17 at 09:00 Docusate Sodium (Colace Liquid Cup) 100 mg BID NGT Last administered on 08:09; Admin Dose 100 MG; Start 01/13/17 at 21:00 Pantoprazole (Protonix Iv) 40 mg DAILY@06 IV Last administered on 01/14/17 05: 20; Admin Dose 40 MG; Start 01/14/17 at 06:00 IKE MULLER 2, 2017 10:14
--- NOTE | 2017-01-14 10:35 | CONS ---
Date/Time of Note Date/Time of Note DATE: 01/14/17 TIME: 10:31 Assessment/Plan Assessment/Plan Chief Complaint/Hosp Course IMPRESSION: 1. Atrial fibrillation-Having episodes of PAF with reasonable rate control 2. Hypotension-borderline while on HD currently 3. Abnormal electrocardiogram with inferolateral T-wave inversions. 4. Respiratory failure-s/p intubation and remains thus 5. Nonhealing toe ulceration-vascular following 6. Peripheral arterial disease by arterial ultrasound of the lower extremities this admission. 7. Diabetes mellitus. 8. Fevers. 9. Positive troponin-downtrended 10.Bradycardia-improved/stable 11.-severe by echo 12.Cardiomyopathy-EF 40-45% by echo/36% by stress with no ischemia but positive scar. EF <30% by echo post arrest 14.Encephalopathy-anoxic 15. s/p cardiopulmonary arrest 01/08 Recc: -Tele -serial ecg -HD for volume removal as tolerated -Continue baby asa/eliquis -Continue PO amio in attempt to maintain SR but will increase to BID -Continue BB as tolerated only following HR/BP closely -Will hold on afterload reduction given severe and thus fixed afterload at valve orifice -WEan vent as possible/tolerated Problems: Consultation Date/Type/Reason Admit Date/Time Dec 02, 2016 at 21:01 Initial Consult Date 12/03/16 Type of Consultation: Cardiology Reason for Consultation CHF/ Referring Provider: VIET PARKER MD Exam/Review of Systems Vital Signs Vitals Vital Signs Date Time Temp Pulse Resp B/P Pulse Ox O2 Delivery O2 Flow Rate FiO2 01/14/17 09:50 76 16 100 30 01/14/17 08:00 116/54 Mechanical Ventilator 01/14/17 04:00 99.1 Intake and Output 01/13/17 01/13/17 01/14/17 15:00 23:00 07:00 Intake Total 290 ml 1180 ml 260 ml Balance 290 ml 1180 ml 260 ml Exam Review of Systems: CONSTITUTIONAL: No fevers, chills. PULMONARY: intubated CARDIOVASCULAR: No obvious chest pain/palpitations GASTROINTESTINAL: No nausea/vomiting. GENITOURINARY: No hematuria/dysuria. MUSCULOSKELETAL: No obvious myagias/arthalgias. PSYCHIATRIC: The patient denies depression. NEUROLOGIC: encephalopathic Constitutional: other (encephalopathic) Head: normocephalic ENMT: intubated Neck: jvd (9 cm water), supple Respiratory: diminished breath sounds (at bases/B) Cardiovascular: regular rate and rhythm Gastrointestinal: non-tender, soft Musculoskeletal: muscle tone (normal) Extremities: edema (trace/B) Neurological: other (No focal deficits) Results Result Diagram: 01/13/17 0524 01/14/17 0548 Results 24 hrs Laboratory Tests Test 01/13/17 12:47 01/13/17 16:23 01/13/17 20:25 01/14/17 01:19 Bedside Glucose 215 210 176 172 Test 01/14/17 05:16 01/14/17 05:48 01/14/17 08:34 Bedside Glucose 168 193 Sodium Level 144 Potassium Level 4.4 Chloride Level 99 Carbon Dioxide Level 28 Anion Gap 21 #H Blood Urea Nitrogen 69 H Creatinine 3.24 H Glucose Level 173 Calcium Level 8.6 Total Bilirubin 0.5 Direct Bilirubin 0.00 Indirect Bilirubin 0.5 Aspartate Amino Transf (AST/SGOT) 25 Alanine Aminotransferase (ALT/SGPT) 19 Alkaline Phosphatase 74 Total Protein 7.3 Albumin 4.2 Globulin 3.10 Albumin/Globulin Ratio 1.35 Medications Medications Current Medications Ondansetron HCl (Zofran Inj) 4 mg Q6H PRN IV NAUSEA AND/OR VOMITING Last administered on 12/13/16 01:13; Admin Dose 4 MG; Start 12/02/16 at 22:30 Miscellaneous Information 1 ea NOTE XX ; Start 12/02/16 at 23:00 Glucose (Glutose) 15 gm Q15M PRN PO DECREASED GLUCOSE; Start 12/02/16 at 23:00 Glucose (Glutose) 22.5 gm Q15M PRN PO DECREASED GLUCOSE; Start 12/02/16 at 23: 00 Dextrose (D50w Syringe) 25 ml Q15M PRN IV DECREASED GLUCOSE Last administered on 12/10/16 05:52; Admin Dose 25 ML; Start 12/02/16 at 23:00 Dextrose (D50w Syringe) 50 ml Q15M PRN IV DECREASED GLUCOSE; Start 12/02/16 at 23:00 Glucagon (Glucagen) 1 mg Q15M PRN IM DECREASED GLUCOSE; Start 12/02/16 at 23:00 Glucose (Glutose) 15 gm Q15M PRN BUCCAL DECREASED GLUCOSE; Start 12/02/16 at 23 :00 Gabapentin (Neurontin) 800 mg TID PO Last administered on 12/08/16 20:33; Admin Dose 800 MG; Start 12/03/16 at 09:00; Status Future Hold Benazepril HCl (Lotensin) 10 mg DAILY PO Last administered on 12/07/16 08:26; Admin Dose 10 MG; Start 12/04/16 at 09:00; Status Future Hold Morphine Sulfate (morphine) 2 mg Q2H PRN IV PAIN Last administered on 12/20/16 03:22; Admin Dose 2 MG; Start 12/09/16 at 09:30 Acetaminophen (Tylenol Supp) 650 mg Q6H PRN [place] ELEVATED TEMPERATURE Last administered on 01/13/17 20:32; Admin Dose 650 MG; Start 12/09/16 at 17:00 Hydralazine HCl (Apresoline) 10 mg Q6H PRN IV SBP>150mm hg Last administered on 12/19/16 08:50; Admin Dose 10 MG; Start 12/11/16 at 10:30 Morphine Sulfate (morphine) 2 mg Q2H PRN IV PAIN LEVEL 4-7; Start 12/13/16 at 10 :00 Collagenase 1 applic 1 applic DAILY TOP Last administered on 01/14/17 08:11; Admin Dose 1 APPLIC; Start 01/04/17 at 09:00 Propofol 100 ml @ 2.544 mls/ hr Q12H IV Last administered on 01/08/17 04:00; Admin Dose 2.544 MLS/HR; Start 01/08/17 at 04:00 Meropenem 100 ml @ 200 mls/hr Q24H IVPB Last administered on 01/13/17 20:31; Admin Dose 200 MLS/HR; Start 01/08/17 at 21:00 Linezolid (Zyvox 600mg/D5W (Pmx)) 300 ml @ 300 mls/hr Q12 IVPB Last administered on 01/14/17 08:10; Admin Dose 300 MLS/HR; Start 01/08/17 at 18:00 Insulin Aspart (Novolog Insulin Pen) NOVOLOG *MODERATE* ALGORI... Q4 SC Last administered on 01/14/17 08:37; Admin Dose 4 UNIT; Start 01/09/17 at 14:15 Diagnostic Test (Pha) (Accu-Chek) 1 ea 02 XX Last administered on 01/13/17 02: 00; Admin Dose 1 EA; Start 01/10/17 at 02:00 Insulin Glargine 30 unit 30 unit DAILY@20 SC Last administered on 01/13/17 20: 26; Admin Dose 30 UNIT; Start 01/11/17 at 20:00 Caspofungin/ Sodium Chloride (Cancidas/NS) 250 ml @ 250 mls/hr Q24H IVPB Last administered on 01/13/17 10:42; Admin Dose 250 MLS/HR; Start 01/13/17 at 09:30 Metoprolol Tartrate (Lopressor) 5 mg Q4 PRN IV FOR H.R>110; Start 01/12/17 at 17:30 Acetaminophen (Tylenol Liquid) 650 mg Q6H PRN NGT PAIN AND OR ELEVATED TEMP; Start 01/13/17 at 23:30 Amiodarone HCl (Cordarone) 200 mg BID NGT Last administered on 01/14/17 08:10; Admin Dose 200 MG; Start 01/13/17 at 21:00 Apixaban (Eliquis) 2.5 mg BID NGT Last administered on 01/14/17 08:09; Admin Dose 2.5 MG; Start 01/13/17 at 21:00 Acetaminophen/ Hydrocodone Bitart ([place] (5/325)) 1 tab Q6H PRN NGT PAIN LEVEL 4-7; Start 01/13/17 at 23:30 Levetiracetam (Keppra Liquid) 1,000 mg DAILY NGT Last administered on 01/14/17 08:10; Admin Dose 1,000 MG; Start 01/14/17 at 09:00 Meclizine HCl (Antivert) 25 mg TID PRN NGT dizziness; Start 01/13/17 at 20:00 Metoprolol Tartrate (Lopressor) 50 mg BID NGT Last administered on 01/13/17 21: 12; Admin Dose 50 MG; Start 01/13/17 at 21:00 Zolpidem Tartrate (Ambien) 5 mg HS PRN NGT INSOMNIA; Start 01/13/17 at 20:00 Aspirin (Aspirin) 81 mg DAILY NGT Last administered on 01/14/17 08:09; Admin Dose 81 MG; Start 01/14/17 at 09:00 Docusate Sodium (Colace Liquid Cup) 100 mg BID NGT Last administered on 08:09; Admin Dose 100 MG; Start 01/13/17 at 21:00 Pantoprazole (Protonix Iv) 40 mg DAILY@06 IV Last administered on 01/14/17 05: 20; Admin Dose 40 MG; Start 01/14/17 at 06:00 VICENTE LESLIE Jan 14, 2017 10:35
--- NOTE | 2017-01-14 13:08 | RADRPT ---
PROCEDURE: CT Chest, Abdomen and Pelvis without intravenous contrast CLINICAL INDICATION: Fever, abdominal pain. TECHNIQUE: CT of the chest, abdomen and pelvis was performed on a multidetector scanner without IV contrast. Coronal and sagittal images were reformatted from the axial data set. One or more of th e following dose reduction techniques were used: automated exposure control, adjustment of the mA a nd/or kV according to patient size, use of iterative reconstruction technique. CTDI = 14.83 mGy. DLP = 1216.86 mGy-cm. COMPARISON: CT, 12/15/2016 FINDINGS: CT chest: There are moderate to large bilateral pleural effusions, with associated bibasilar atelectasis. Pat aaron bilateral perihilar ground-glass opacity and interstitial thickening is seen, suggestive of mild pulmonary edema. No focal acute infiltrate or pneumothorax is identified. The central tracheobron chial tree is clear. No pulmonary nodule or mass is identified. Endotracheal tube tip is in the mi d trachea. There is stable mild cardiomegaly, without pericardial effusion. Coronary arterial and aortic ather osclerotic calcifications are present. There is no thoracic aortic aneurysm. No mediastinal, hilar , axillary or supraclavicular lymphadenopathy is identified. There has been interval placement of a right-sided Port-A-Cath, with tip at the SVC/right atrial junction. CT abdomen and pelvis: Nasogastric tube tip is within the stomach. Liver, gallbladder, biliary tree, pancreas, spleen, adr enal glands and kidneys are unremarkable. No urolithiasis or obstructive uropathy is identified. T he aorta is of normal caliber. Aortic vascular calcifications are present. There is no retroperito donna lymphadenopathy. The melita hepatis region is clear. Moderate retained fecal material may indicate constipation. No bowel obstruction, free intraperiton eal air or abscess is identified. There is no diverticulosis, diverticulitis or colitis. The appen lee is well visualized and normal. Urinary bladder is moderately distended, concerning for urinary retention. No pelvic mass, free fluid or lymphadenopathy is identified. Fat containing left inguin al hernia is noted. The surrounding osseous structures are remarkable for degenerative spondylosis of the spine. No ost eolytic or osteoblastic lesion is detected. IMPRESSION: 1. There are moderate to large bilateral pleural effusions, with associated bibasilar atelectasis, similar to prior CT. 2. Perihilar ground-glass opacity and interstitial thickening is again noted, compatible with mild pulmonary edema. 3. There is stable mild cardiomegaly. Coronary arterial and aortoiliac atherosclerotic calcificati ons are present. 4. Right-sided Perma-Cath, endotracheal tube, nasogastric tube are in place. 5. Urinary bladder is moderately distended, concerning for urinary retention. 6. Moderate retained fecal material is suggestive of constipation. 7. Fat-containing left inguinal hernia is noted without incarceration. 8. There is no evidence of colitis or abscess. RPTAT: HH .Boston Cooley MD, MD Date Time Electronically viewed and signed by .Boston Cooley MD, MD on 01/14/2017 13:07 .R/
--- NOTE | 2017-01-14 13:48 | PN ---
DATE: 01/14/2017 SUBJECTIVE: The patient is status post cardiopulmonary arrest. The patient is currently orally intubated on ventilatory support, minimally responsive. Stable vital signs. Last blood sugar is 193. OBJECTIVE: VITAL SIGNS: Temperature is 98.7, pulse is 83, blood pressure is 108/60, respiratory rate 20, oxygen saturation 100% on 30% FIO2. HEENT: Head is atraumatic, normocephalic. Pupils sluggishly reactive. NECK: Supple. LUNGS: Diminished at the bases. HEART: Variable S1, normal S2, a pansystolic murmur. ABDOMEN: Round, soft, nondistended. Bowel sounds present. EXTREMITIES: Mild edema. Pulses present 2+. LABORATORY DATA: Today, BMP: Sodium was 144, potassium 4.4, chloride 99, carbon dioxide 28, anion gap 21, BUN is 69, creatinine 3.24, glucose 173, calcium is 8.6. ASSESSMENT AND PLAN: 1. Status post cardiopulmonary arrest on 12/09/2016 and 01/08/2017. Continue ICU care, ventilatory support. 2. Anoxic encephalopathy. Dr. Villa is following in neurology consultation. The patient started on Keppra due to epileptiform activity on EEG 3. Acute kidney injury secondary to acute tubular necrosis. Continue hemodialysis. 4. Diabetes mellitus type 2. We will increase Lantus, continue NovoLog per sliding scale with q.4h. Accu-Chek. 5. Paroxysmal atrial fibrillation. Continue aspirin and Eliquis. Dr. Cobian is following the patient in cardiology consultation. 6. Peripheral arterial disease. 7. Diabetic foot ulcer. 8. Osteomyelitis of the distal phalanx of the left great toe and left proximal phalanx. Continue antibiotics per infectious disease. Dr. Moses is following in infectious disease consultation. 9. Possible pneumonia. 10. We will continue Protonix for peptic ulcer disease prophylaxis. Further recommendations based on clinical course. Plan of care discussed with Dr. Parker Dictated By: KIMBERLY NOYOLA CREDIT RISK MANAGER for VIET PARKER MD, SR/NTS Conf#: [id number] DID#: [id number] MTDD
--- NOTE | 2017-01-14 14:32 | CONS ---
Date/Time of Note Date/Time of Note DATE: 01/14/17 TIME: 14:30 Assessment/Plan Assessment/Plan Chief Complaint/Hosp Course Cardiorespiratory arrest with encephalopathy Problems: Additional Assessment/Plan 66 year old male with prolonged hospitalization initially for cellulitis, OM, ARF requiring HD s/p cardiac arrest on 12/09 and again on 01/08 with suspected anoxic brain injury. Head CT on 01/10 shows mild white matter disease consistent with chronic small vessel ischemic changes. EEG shows burst suppression pattern with epileptiform activity, Keppra initiated per dialysis dosing. Recommendations: -burst suppression pattern is generally associated with a poor prognosis for meaningful neurologic recovery -continue on Keppra 1 gram daily and additional 500 mg dose after each dialysis for dialysis dosing -continue supportive care and goals of care discussion with family -Discussed with patient and were present in the room [employer] hand hide stretcher -We will follow as needed Consultation Date/Type/Reason Admit Date/Time Dec 02, 2016 at 21:01 Initial Consult Date 12/08/16 Type of Consultation: Cardiology Referring Provider: VIET PARKER MD 24 HR Interval Summary Free Text/Dictation He has his eyes open now, does not follow commands. Still intubated and mechanically ventilated. Exam/Review of Systems Vital Signs Vitals Vital Signs Date Time Temp Pulse Resp B/P Pulse Ox O2 Delivery O2 Flow Rate FiO2 01/14/17 13:00 111 25 100 30 01/14/17 12:00 98.7 108/60 Mechanical Ventilator Intake and Output 01/13/17 01/13/17 01/14/17 15:00 23:00 07:00 Intake Total 290 ml 1180 ml 260 ml Balance 290 ml 1180 ml 260 ml Exam Constitutional: alert, non-verbal Head: atraumatic, normocephalic Eyes: EOMI, nl conjunctiva, nl lids, nl sclera ENMT: nl external ears & nose, nl lips & teeth, nl nasal mucosa & septum Neck: non-tender, supple Respiratory: other (Intubated) Cardiovascular: nl pulses, regular rate and rhythm Gastrointestinal: nl liver, spleen, non-tender, soft Neurological: other (Eyes are open but does not follow commands, does not communicate, intubated and mechanically ventilated, very limited exam) Results Result Diagram: 01/13/17 0524 01/14/17 0548 Results 24 hrs Laboratory Tests Test 01/13/17 16:23 01/13/17 20:25 01/14/17 01:19 01/14/17 05:16 Bedside Glucose 210 176 172 168 Test 01/14/17 05:48 01/14/17 08:34 01/14/17 13:52 Sodium Level 144 Potassium Level 4.4 Chloride Level 99 Carbon Dioxide Level 28 Anion Gap 21 #H Blood Urea Nitrogen 69 H Creatinine 3.24 H Glucose Level 173 Calcium Level 8.6 Total Bilirubin 0.5 Direct Bilirubin 0.00 Indirect Bilirubin 0.5 Aspartate Amino Transf (AST/SGOT) 25 Alanine Aminotransferase (ALT/SGPT) 19 Alkaline Phosphatase 74 Total Protein 7.3 Albumin 4.2 Globulin 3.10 Albumin/Globulin Ratio 1.35 Bedside Glucose 193 173 Medications Medications Current Medications Ondansetron HCl (Zofran Inj) 4 mg Q6H PRN IV NAUSEA AND/OR VOMITING Last administered on 12/13/16 01:13; Admin Dose 4 MG; Start 12/02/16 at 22:30 Miscellaneous Information 1 ea NOTE XX ; Start 12/02/16 at 23:00 Glucose (Glutose) 15 gm Q15M PRN PO DECREASED GLUCOSE; Start 12/02/16 at 23:00 Glucose (Glutose) 22.5 gm Q15M PRN PO DECREASED GLUCOSE; Start 12/02/16 at 23: 00 Dextrose (D50w Syringe) 25 ml Q15M PRN IV DECREASED GLUCOSE Last administered on 12/10/16 05:52; Admin Dose 25 ML; Start 12/02/16 at 23:00 Dextrose (D50w Syringe) 50 ml Q15M PRN IV DECREASED GLUCOSE; Start 12/02/16 at 23:00 Glucagon (Glucagen) 1 mg Q15M PRN IM DECREASED GLUCOSE; Start 12/02/16 at 23:00 Glucose (Glutose) 15 gm Q15M PRN BUCCAL DECREASED GLUCOSE; Start 12/02/16 at 23 :00 Gabapentin (Neurontin) 800 mg TID PO Last administered on 12/08/16 20:33; Admin Dose 800 MG; Start 12/03/16 at 09:00; Status Future Hold Benazepril HCl (Lotensin) 10 mg DAILY PO Last administered on 12/07/16 08:26; Admin Dose 10 MG; Start 12/04/16 at 09:00; Status Future Hold Morphine Sulfate (morphine) 2 mg Q2H PRN IV PAIN Last administered on 12/20/16 03:22; Admin Dose 2 MG; Start 12/09/16 at 09:30 Acetaminophen (Tylenol Supp) 650 mg Q6H PRN [place] ELEVATED TEMPERATURE Last administered on 01/13/17 20:32; Admin Dose 650 MG; Start 12/09/16 at 17:00 Hydralazine HCl (Apresoline) 10 mg Q6H PRN IV SBP>150mm hg Last administered on 12/19/16 08:50; Admin Dose 10 MG; Start 12/11/16 at 10:30 Morphine Sulfate (morphine) 2 mg Q2H PRN IV PAIN LEVEL 4-7; Start 12/13/16 at 10 :00 Collagenase 1 applic 1 applic DAILY TOP Last administered on 01/14/17 08:11; Admin Dose 1 APPLIC; Start 01/04/17 at 09:00 Propofol 100 ml @ 2.544 mls/ hr Q12H IV Last administered on 01/08/17 04:00; Admin Dose 2.544 MLS/HR; Start 01/08/17 at 04:00 Meropenem 100 ml @ 200 mls/hr Q24H IVPB Last administered on 01/13/17 20:31; Admin Dose 200 MLS/HR; Start 01/08/17 at 21:00 Linezolid (Zyvox 600mg/D5W (Pmx)) 300 ml @ 300 mls/hr Q12 IVPB Last administered on 01/14/17 08:10; Admin Dose 300 MLS/HR; Start 01/08/17 at 18:00 Insulin Aspart (Novolog Insulin Pen) NOVOLOG *MODERATE* ALGORI... Q4 SC Last administered on 01/14/17 14:00; Admin Dose 2 UNIT; Start 01/09/17 at 14:15 Diagnostic Test (Pha) 1 ea 1 ea 02 XX Last administered on 01/13/17 02:00; Admin Dose 1 EA; Start 01/10/17 at 02:00 Caspofungin/ Sodium Chloride (Cancidas/NS) 250 ml @ 250 mls/hr Q24H IVPB Last administered on 01/13/17 10:42; Admin Dose 250 MLS/HR; Start 01/13/17 at 09:30 Metoprolol Tartrate (Lopressor) 5 mg Q4 PRN IV FOR H.R>110; Start 01/12/17 at 17:30 Acetaminophen (Tylenol Liquid) 650 mg Q6H PRN NGT PAIN AND [place] ELEVATED TEMP; Start 01/13/17 at 23:30 Amiodarone HCl (Cordarone) 200 mg BID NGT Last administered on 01/14/17 08:10; Admin Dose 200 MG; Start 01/13/17 at 21:00 Apixaban (Eliquis) 2.5 mg BID NGT Last administered on 01/14/17 08:09; Admin Dose 2.5 MG; Start 01/13/17 at 21:00 Acetaminophen/ Hydrocodone Bitart ([place] (5/325)) 1 tab Q6H PRN NGT PAIN LEVEL 4-7; Start 01/13/17 at 23:30 Levetiracetam (Keppra Liquid) 1,000 mg DAILY NGT Last administered on 01/14/17 08:10; Admin Dose 1,000 MG; Start 01/14/17 at 09:00 Meclizine HCl (Antivert) 25 mg TID PRN NGT dizziness; Start 01/13/17 at 20:00 Metoprolol Tartrate (Lopressor) 50 mg BID NGT Last administered on 01/13/17 21: 12; Admin Dose 50 MG; Start 01/13/17 at 21:00 Zolpidem Tartrate (Ambien) 5 mg HS PRN NGT INSOMNIA; Start 01/13/17 at 20:00 Aspirin (Aspirin) 81 mg DAILY NGT Last administered on 01/14/17 08:09; Admin Dose 81 MG; Start 01/14/17 at 09:00 Docusate Sodium (Colace Liquid Cup) 100 mg BID NGT Last administered on 08:09; Admin Dose 100 MG; Start 01/13/17 at 21:00 Pantoprazole (Protonix Iv) 40 mg DAILY@06 IV Last administered on 01/14/17 05: 20; Admin Dose 40 MG; Start 01/14/17 at 06:00 Insulin Glargine (Lantus) 34 unit DAILY@20 SC ; Start 01/14/17 at 20:00 DAVON DIXON MD Jan 14, 2017 14:32
--- NOTE | 2017-01-14 16:33 | CONS ---
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 Blood cultures from HD catheter on 12/13/2016 are negative to date. 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 MRI on 12/06/2016 and bone scan on showed 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 and left fourth proximal phalanx. 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- she wants to continue HD as of now Consultation Date/Type/Reason Admit Date/Time Dec 02, 2016 at 21:01 Initial Consult Date Type of Consultation: NEPHROLOGY Referring Provider: VIET PARKER MD 24 HR Interval Summary Free Text/Dictation S/p Neurology follow up, plan for HD today Exam/Review of Systems Vital Signs Vitals Vital Signs Date Time Temp Pulse Resp B/P Pulse Ox O2 Delivery O2 Flow Rate FiO2 01/14/17 16:07 83 01/14/17 15:45 17 100 30 01/14/17 12:00 98.7 108/60 Mechanical Ventilator Intake and Output 01/13/17 01/13/17 01/14/17 15:00 23:00 07:00 Intake Total 290 ml 1180 ml 260 ml Balance 290 ml 1180 ml 260 ml Exam Constitutional: alert, non-verbal Head: atraumatic, normocephalic Eyes: EOMI, nl conjunctiva, nl lids, nl sclera ENMT: nl external ears & nose, nl lips & teeth, nl nasal mucosa & septum Neck: non-tender, supple Respiratory: other (Intubated) Cardiovascular: nl pulses, regular rate and rhythm Gastrointestinal: nl liver, spleen, non-tender, soft Neurological: other (Eyes are open but does not follow commands, does not communicate, intubated and mechanically ventilated, very limited exam) Results Result Diagram: 01/13/17 0524 01/14/17 0548 Results 24 hrs Laboratory Tests Test 01/13/17 20:25 01/14/17 01:19 01/14/17 05:16 01/14/17 05:48 Bedside Glucose 176 172 168 Sodium Level 144 Potassium Level 4.4 Chloride Level 99 Carbon Dioxide Level 28 Anion Gap 21 #H Blood Urea Nitrogen 69 H Creatinine 3.24 H Glucose Level 173 Calcium Level 8.6 Total Bilirubin 0.5 Direct Bilirubin 0.00 Indirect Bilirubin 0.5 Aspartate Amino Transf (AST/SGOT) 25 Alanine Aminotransferase (ALT/SGPT) 19 Alkaline Phosphatase 74 Total Protein 7.3 Albumin 4.2 Globulin 3.10 Albumin/Globulin Ratio 1.35 Test 01/14/17 08:34 01/14/17 13:52 Bedside Glucose 193 173 Medications Medications Current Medications Ondansetron HCl (Zofran Inj) 4 mg Q6H PRN IV NAUSEA AND/OR VOMITING Last administered on 12/13/16 01:13; Admin Dose 4 MG; Start 12/02/16 at 22:30 Miscellaneous Information 1 ea NOTE XX ; Start 12/02/16 at 23:00 Glucose (Glutose) 15 gm Q15M PRN PO DECREASED GLUCOSE; Start 12/02/16 at 23:00 Glucose (Glutose) 22.5 gm Q15M PRN PO DECREASED GLUCOSE; Start 12/02/16 at 23: 00 Dextrose (D50w Syringe) 25 ml Q15M PRN IV DECREASED GLUCOSE Last administered on 12/10/16 05:52; Admin Dose 25 ML; Start 12/02/16 at 23:00 Dextrose (D50w Syringe) 50 ml Q15M PRN IV DECREASED GLUCOSE; Start 12/02/16 at 23:00 Glucagon (Glucagen) 1 mg Q15M PRN IM DECREASED GLUCOSE; Start 12/02/16 at 23:00 Glucose (Glutose) 15 gm Q15M PRN BUCCAL DECREASED GLUCOSE; Start 12/02/16 at 23 :00 Gabapentin (Neurontin) 800 mg TID PO Last administered on 12/08/16 20:33; Admin Dose 800 MG; Start 12/03/16 at 09:00; Status Future Hold Benazepril HCl (Lotensin) 10 mg DAILY PO Last administered on 12/07/16 08:26; Admin Dose 10 MG; Start 12/04/16 at 09:00; Status Future Hold Morphine Sulfate (morphine) 2 mg Q2H PRN IV PAIN Last administered on 12/20/16 03:22; Admin Dose 2 MG; Start 12/09/16 at 09:30 Acetaminophen (Tylenol Supp) 650 mg Q6H PRN [place] ELEVATED TEMPERATURE Last administered on 01/13/17 20:32; Admin Dose 650 MG; Start 12/09/16 at 17:00 Hydralazine HCl (Apresoline) 10 mg Q6H PRN IV SBP>150mm hg Last administered on 12/19/16 08:50; Admin Dose 10 MG; Start 12/11/16 at 10:30 Morphine Sulfate (morphine) 2 mg Q2H PRN IV PAIN LEVEL 4-7; Start 12/13/16 at 10 :00 Collagenase 1 applic 1 applic DAILY TOP Last administered on 01/14/17 08:11; Admin Dose 1 APPLIC; Start 01/04/17 at 09:00 Propofol 100 ml @ 2.544 mls/ hr Q12H IV Last administered on 01/08/17 04:00; Admin Dose 2.544 MLS/HR; Start 01/08/17 at 04:00 Meropenem 100 ml @ 200 mls/hr Q24H IVPB Last administered on 01/13/17 20:31; Admin Dose 200 MLS/HR; Start 01/08/17 at 21:00 Linezolid (Zyvox 600mg/D5W (Pmx)) 300 ml @ 300 mls/hr Q12 IVPB Last administered on 01/14/17 08:10; Admin Dose 300 MLS/HR; Start 01/08/17 at 18:00 Insulin Aspart (Novolog Insulin Pen) NOVOLOG *MODERATE* ALGORI... Q4 SC Last administered on 01/14/17 14:00; Admin Dose 2 UNIT; Start 01/09/17 at 14:15 Diagnostic Test (Pha) 1 ea 1 ea 02 XX Last administered on 01/13/17 02:00; Admin Dose 1 EA; Start 01/10/17 at 02:00 Caspofungin/ Sodium Chloride (Cancidas/NS) 250 ml @ 250 mls/hr Q24H IVPB Last administered on 01/14/17 09:30; Admin Dose 250 MLS/HR; Start 01/13/17 at 09:30 Metoprolol Tartrate (Lopressor) 5 mg Q4 PRN IV FOR H.R>110; Start 01/12/17 at 17:30 Acetaminophen (Tylenol Liquid) 650 mg Q6H PRN NGT PAIN AND [place] ELEVATED TEMP; Start 01/13/17 at 23:30 Amiodarone HCl (Cordarone) 200 mg BID NGT Last administered on 01/14/17 08:10; Admin Dose 200 MG; Start 01/13/17 at 21:00 Apixaban (Eliquis) 2.5 mg BID NGT Last administered on 01/14/17 08:09; Admin Dose 2.5 MG; Start 01/13/17 at 21:00 Acetaminophen/ Hydrocodone Bitart ([place] (5/325)) 1 tab Q6H PRN NGT PAIN LEVEL 4-7; Start 01/13/17 at 23:30 Levetiracetam (Keppra Liquid) 1,000 mg DAILY NGT Last administered on 01/14/17 08:10; Admin Dose 1,000 MG; Start 01/14/17 at 09:00 Meclizine HCl (Antivert) 25 mg TID PRN NGT dizziness; Start 01/13/17 at 20:00 Metoprolol Tartrate (Lopressor) 50 mg BID NGT Last administered on 01/13/17 21: 12; Admin Dose 50 MG; Start 01/13/17 at 21:00 Zolpidem Tartrate (Ambien) 5 mg HS PRN NGT INSOMNIA; Start 01/13/17 at 20:00 Aspirin (Aspirin) 81 mg DAILY NGT Last administered on 01/14/17 08:09; Admin Dose 81 MG; Start 01/14/17 at 09:00 Docusate Sodium (Colace Liquid Cup) 100 mg BID NGT Last administered on 08:09; Admin Dose 100 MG; Start 01/13/17 at 21:00 Pantoprazole (Protonix Iv) 40 mg DAILY@06 IV Last administered on 01/14/17 05: 20; Admin Dose 40 MG; Start 01/14/17 at 06:00 Insulin Glargine (Lantus) 34 unit DAILY@20 SC ; Start 01/14/17 at 20:00 TASHIA MCGARRY MD Jan 14, 2017 16:33
[2017-01-14] MEDS ORDERED: ATROPINE 1 MG/10 ML SYRINGE ONE (18:23)
[2017-01-14] MEDS: MEROPENEM 500 MG/100 ML (PMX) 100 ML IVPB SCH (20:37)
[2017-01-14] MEDS: INSULIN GLARGINE [LANtus] 3 ML PEN SC SCH (20:42)
[2017-01-15] VITALS (59 sets, daily range): BP systolic 84–121; BP diastolic 44–71; PULSE 59–99; RESP 16–28
[2017-01-15] MEDS: INSULIN ASPART [NOVOLOG] 3 ML PEN SC SCH ×7 (00:50→21:07)
[2017-01-15] MEDS: ALBUTEROL 18 GM INHALER INH SCH ×4 (01:52→19:11)
[2017-01-15] MEDS: ACCU-CHEK XX SCH (02:14)
[2017-01-15] MEDS: PROPOFOL 100 ML IV SCH ×2 (04:00→13:33)
[2017-01-15] MEDS: PANTOPRAZOLE 40 MG INJ IV SCH (05:13)
[2017-01-15 07:13] LABS: ADD SCAN DIFF NO
[2017-01-15 07:17] LABS: BASOPHILS % 0.2 % (0.0-2.0); EOSINOPHILS # 0.1 10^3/ul (0.0-0.5); EOSINOPHILS % 0.6 % (0.0-7.0); HEMATOCRIT 31.1 % (42.0-52.0); HEMOGLOBIN 10.1 g/dl (14.0-18.0); LYMPHOCYTES # 1.1 10^3/ul (0.8-2.9); LYMPHOCYTES % 9.9 % (15.0-51.0); MEAN CORPUSCULAR HEMOGLOBIN 30.9 pg (29.0-33.0); MEAN CORPUSCULAR HGB CONC 32.5 g/dl (32.0-37.0); MEAN CORPUSCULAR VOLUME 95.1 fl (82.0-101.0); MEAN PLATELET VOLUME 10.6 fl (7.4-10.4); MONOCYTE # 0.6 10^3/ul (0.3-0.9); MONOCYTES % 5.7 % (0.0-11.0); NEUTROPHIL # 9.3 10^3/ul (1.6-7.5); NEUTROPHILS % 83.1 % (39.0-77.0); PLATELET COUNT 200 10^3/UL (140-415); RED BLOOD COUNT 3.27 10^6/ul (4.70-6.10); WHITE BLOOD COUNT 11.2 10^3/ul (4.8-10.8)
[2017-01-15 07:35] LABS: CALCIUM 8.8 mg/dl (8.4-10.2); CREATININE 2.01 mg/dl (0.61-1.24); POTASSIUM 3.8 mmol/L (3.5-5.1)
[2017-01-15] MEDS: AMIODARONE 200 MG TAB NGT SCH ×2 (08:57→20:33)
[2017-01-15] MEDS: ASPIRIN 81 MG TAB NGT SCH (08:57)
[2017-01-15] MEDS: APIXABAN 5 MG TABLET NGT SCH ×2 (08:58→20:33)
[2017-01-15] MEDS: LEVETIRACETAM (100 MG/ML) 5ML CUP NGT SCH (08:58)
[2017-01-15] MEDS: LINEZOLID 600 MG/D5W (PMX) 300 ML IVPB SCH ×2 (08:58→20:43)
[2017-01-15] MEDS: DOCUSATE SODIUM 10 MG/ML (10ML CUP) NGT SCH ×2 (08:58→20:32)
[2017-01-15] MEDS: COLLAGENASE 30 GM TUBE TOP SCH ×2 (09:00→10:15)
[2017-01-15] MEDS: METOPROLOL 50 MG TAB NGT SCH ×3 (09:00→20:41)
--- NOTE | 2017-01-15 10:00 | CONS ---
Date/Time of Note Date/Time of Note DATE: 01/15/17 TIME: 09:57 Assessment/Plan Assessment/Plan Additional Assessment/Plan CT abdomen was reviewed from yesterday which is showing large bilateral pleural effusions. No significant abdominal pathology seen on CT imaging. Ventilator setting; AC of 16, tidal volume 500, PEEP of 5, 30% FiO2. Assessment recommendations; 1. Patient admitted for respiratory failure after undergoing CPR due to flash pulmonary edema from underlying cardiomyopathy. 2. Bilateral pleural effusions. 3. Likely significant anoxic brain injury. 4. End-stage renal disease, on hemodialysis. 5. Diabetes and hypertension. Next Continue current supportive care. Will obtain ultrasound-guided thoracentesis on the right side. Prognosis remains very poor. Consultation Date/Type/Reason Admit Date/Time Dec 02, 2016 at 21:01 Initial Consult Date 12/03/16 Type of Consultation: Pulmonary/critical care Referring Provider: VIET PARKER MD 24 HR Interval Summary Free Text/Dictation Patient condition remains critical. Remains unresponsive to any commands but awake. Has remained hemodynamically stable. General exam; elderly male, orally intubated, awake but unresponsive to any commands. Currently in no distress. Exam/Review of Systems Vital Signs Vitals Vital Signs Date Time Temp Pulse Resp B/P Pulse Ox O2 Delivery O2 Flow Rate FiO2 01/15/17 08:15 98.7 82 24 85/68 100 01/15/17 08:15 30 01/15/17 08:00 Mechanical Ventilator Intake and Output 01/14/17 01/14/17 01/15/17 15:00 23:00 07:00 Intake Total 590 ml 1130 ml 840 ml Output Total 2400 ml 2500 ml Balance 590 ml -1270 ml -1660 ml Exam H EENT examination; supple neck, positive JVD. No lymphadenopathy. Midline trachea. No thyromegaly. Patient is edentulous. Pupils are equal and reactive to light bilaterally. Orally intubated. Chest examination; diminished but clear vessel. S1-S2 audible, no murmurs. Regular rhythm. Abdomen examination; soft, non-distended. No organomegaly. Bowel sounds audible. Extremity examination; no peripheral edema. Pulses 1+ bilaterally. ACCOUNT ASSOCIATE examination; patient is awake but unresponsive to any commands. Results Result Diagram: 01/15/17 0700 01/15/17 0700 Results 24 hrs Laboratory Tests Test 01/14/17 13:52 01/14/17 16:54 01/14/17 20:40 01/15/17 00:47 Bedside Glucose 173 158 205 224 H Test 01/15/17 02:20 01/15/17 05:12 01/15/17 07:00 01/15/17 09:04 Bedside Glucose 150 128 175 White Blood Count 11.2 H Red Blood Count 3.27 L Hemoglobin 10.1 L Hematocrit 31.1 L Mean Corpuscular Volume 95.1 Mean Corpuscular Hemoglobin 30.9 Mean Corpuscular Hemoglobin Concent 32.5 Red Cell Distribution Width 13.0 Platelet Count 200 Mean Platelet Volume 10.6 H Neutrophils % 83.1 H Lymphocytes % 9.9 L Monocytes % 5.7 Eosinophils % 0.6 Basophils % 0.2 Nucleated Red Blood Cells % 0.0 Neutrophils # 9.3 H Lymphocytes # 1.1 Monocytes # 0.6 Eosinophils # 0.1 Basophils # 0.0 Nucleated Red Blood Cells # 0.0 Sodium Level 146 H Potassium Level 3.8 Chloride Level 106 Carbon Dioxide Level 30 Anion Gap 14 # Blood Urea Nitrogen 48 #H Creatinine 2.01 #H Glucose Level 147 Calcium Level 8.8 Medications Medications Current Medications Ondansetron HCl (Zofran Inj) 4 mg Q6H PRN IV NAUSEA AND/OR VOMITING Last administered on 12/13/16 01:13; Admin Dose 4 MG; Start 12/02/16 at 22:30 Miscellaneous Information 1 ea NOTE XX ; Start 12/02/16 at 23:00 Glucose (Glutose) 15 gm Q15M PRN PO DECREASED GLUCOSE; Start 12/02/16 at 23:00 Glucose (Glutose) 22.5 gm Q15M PRN PO DECREASED GLUCOSE; Start 12/02/16 at 23: 00 Dextrose (D50w Syringe) 25 ml Q15M PRN IV DECREASED GLUCOSE Last administered on 12/10/16 05:52; Admin Dose 25 ML; Start 12/02/16 at 23:00 Dextrose (D50w Syringe) 50 ml Q15M PRN IV DECREASED GLUCOSE; Start 12/02/16 at 23:00 Glucagon (Glucagen) 1 mg Q15M PRN IM DECREASED GLUCOSE; Start 12/02/16 at 23:00 Glucose (Glutose) 15 gm Q15M PRN BUCCAL DECREASED GLUCOSE; Start 12/02/16 at 23 :00 Gabapentin (Neurontin) 800 mg TID PO Last administered on 12/08/16 20:33; Admin Dose 800 MG; Start 12/03/16 at 09:00; Status Future Hold Benazepril HCl (Lotensin) 10 mg DAILY PO Last administered on 12/07/16 08:26; Admin Dose 10 MG; Start 12/04/16 at 09:00; Status Future Hold Acetaminophen (Tylenol Supp) 650 mg Q6H PRN [place] ELEVATED TEMPERATURE Last administered on 01/13/17 20:32; Admin Dose 650 MG; Start 12/09/16 at 17:00 Hydralazine HCl (Apresoline) 10 mg Q6H PRN IV SBP>150mm hg Last administered on 12/19/16 08:50; Admin Dose 10 MG; Start 12/11/16 at 10:30 Morphine Sulfate (morphine) 2 mg Q2H PRN IV PAIN LEVEL 4-7; Start 12/13/16 at 10 :00 Collagenase 1 applic 1 applic DAILY TOP Last administered on 01/14/17 08:11; Admin Dose 1 APPLIC; Start 01/04/17 at 09:00 Propofol 100 ml @ 2.544 mls/ hr Q12H IV Last administered on 01/08/17 04:00; Admin Dose 2.544 MLS/HR; Start 01/08/17 at 04:00 Meropenem 100 ml @ 200 mls/hr Q24H IVPB Last administered on 01/14/17 20:37; Admin Dose 200 MLS/HR; Start 01/08/17 at 21:00 Linezolid (Zyvox 600mg/D5W (Pmx)) 300 ml @ 300 mls/hr Q12 IVPB Last administered on 01/15/17 08:58; Admin Dose 300 MLS/HR; Start 01/08/17 at 18:00 Insulin Aspart (Novolog Insulin Pen) NOVOLOG *MODERATE* ALGORI... Q4 SC Last administered on 01/15/17 09:05; Admin Dose 2 UNIT; Start 01/09/17 at 14:15 Diagnostic Test (Pha) 1 ea 1 ea 02 XX Last administered on 01/15/17 02:14; Admin Dose 1 EA; Start 01/10/17 at 02:00 Caspofungin/ Sodium Chloride (Cancidas/NS) 250 ml @ 250 mls/hr Q24H IVPB Last administered on 01/14/17 09:30; Admin Dose 250 MLS/HR; Start 01/13/17 at 09:30 Metoprolol Tartrate (Lopressor) 5 mg Q4 PRN IV FOR H.R>110; Start 01/12/17 at 17:30 Acetaminophen (Tylenol Liquid) 650 mg Q6H PRN NGT PAIN AND [place] ELEVATED TEMP; Start 01/13/17 at 23:30 Amiodarone HCl (Cordarone) 200 mg BID NGT Last administered on 01/15/17 08:57; Admin Dose 200 MG; Start 01/13/17 at 21:00 Apixaban (Eliquis) 2.5 mg BID NGT Last administered on 01/15/17 08:58; Admin Dose 2.5 MG; Start 01/13/17 at 21:00 Acetaminophen/ Hydrocodone Bitart ([place] (5/325)) 1 tab Q6H PRN NGT PAIN LEVEL 4-7; Start 01/13/17 at 23:30 Levetiracetam (Keppra Liquid) 1,000 mg DAILY NGT Last administered on 01/15/17 08:58; Admin Dose 1,000 MG; Start 01/14/17 at 09:00 Meclizine HCl (Antivert) 25 mg TID PRN NGT dizziness; Start 01/13/17 at 20:00 Metoprolol Tartrate (Lopressor) 50 mg BID NGT Last administered on 01/14/17 20: 28; Admin Dose 50 MG; Start 01/13/17 at 21:00 Zolpidem Tartrate (Ambien) 5 mg HS PRN NGT INSOMNIA; Start 01/13/17 at 20:00 Aspirin (Aspirin) 81 mg DAILY NGT Last administered on 01/15/17 08:57; Admin Dose 81 MG; Start 01/14/17 at 09:00 Docusate Sodium (Colace Liquid Cup) 100 mg BID NGT Last administered on 08:58; Admin Dose 100 MG; Start 01/13/17 at 21:00 Pantoprazole (Protonix Iv) 40 mg DAILY@06 IV Last administered on 01/15/17 05: 13; Admin Dose 40 MG; Start 01/14/17 at 06:00 Insulin Glargine (Lantus) 34 unit DAILY@20 SC Last administered on 01/14/17 20: 42; Admin Dose 34 UNIT; Start 01/14/17 at 20:00 IKE MULLER Jan 15, 2017 10:00
[2017-01-15] MEDS: CASPOFUNGIN 50 MG in SOD CHLORIDE 0.9% 250 ML IVPB SCH (10:15)
--- NOTE | 2017-01-15 11:49 | PN ---
Date/Time of Note Date/Time of Note DATE: 01/15/17 TIME: 11:42 Assessment/Plan VTE Prophylaxis VTE Prophylaxis Intervention: other Lines/Catheters IV Catheter Type (from [email or web address] Peripheral IV Urinary Cath still in place: No Assessment/Plan Assessment/Plan 1. Hypernatremia - per science center display builder 1. Status post cardiopulmonary arrest on 12/09/2016 and 01/08/2017. Continue ICU care, ventilatory support. 2. Anoxic encephalopathy. Dr. Villa is following in neurology consultation. The patient started on Keppra due to epileptiform activity on EEG 3. Acute kidney injury secondary to acute tubular necrosis. Continue hemodialysis. 4. Diabetes mellitus type 2. We will increase Lantus, continue NovoLog per sliding scale with q.4h. Accu-Chek. 5. Paroxysmal atrial fibrillation. Continue aspirin and Eliquis. Dr. Cobian is following the patient in cardiology consultation. 6. Peripheral arterial disease. 7. Diabetic foot ulcer. 8. Osteomyelitis of the distal phalanx of the left great toe and left proximal phalanx. Continue antibiotics per infectious disease. Dr. Moses is following in infectious disease consultation. 9. Possible pneumonia. 10. Hyperglycemia- possibly due to zyvox is iven in d5w- wiil give Noolog insulin 5 units SQ q12 hrs . We will continue Protonix for peptic ulcer disease prophylaxis. Further recommendations based on clinical course. Plan of care discussed with Dr. Heredia Subjective 24 Hr Interval Summary Free Text/Dictation remains orally intubated, afebrile, no agitation noted. no new events reported overnight, dw staff Constitutional: requiring IVF, requiring O2 Exam/Review of Systems Vital Signs Vitals Vital Signs Date Time Temp Pulse Resp B/P Pulse Ox O2 Delivery O2 Flow Rate FiO2 01/15/17 11:00 82 16 95/49 100 Mechanical Ventilator 01/15/17 08:15 98.7 01/15/17 08:15 30 Intake and Output 01/14/17 01/14/17 01/15/17 15:00 23:00 07:00 Intake Total 590 ml 1130 ml 840 ml Output Total 2400 ml 2500 ml Balance 590 ml -1270 ml -1660 ml Exam Constitutional: frail, non-verbal Neck: non-tender, supple Respiratory: diminished breath sounds, normal air movement Cardiovascular: nl pulses, regular rate and rhythm Gastrointestinal: non-tender, soft Musculoskeletal: other Extremities: normal pulses Neurological: unresponsive Skin: other Results Result Diagram: 01/15/17 0700 01/15/17 0700 Results 24 hrs Laboratory Tests Test 01/14/17 13:52 01/14/17 16:54 01/14/17 20:40 01/15/17 00:47 Bedside Glucose 173 158 205 224 H Test 01/15/17 02:20 01/15/17 05:12 01/15/17 07:00 01/15/17 09:04 Bedside Glucose 150 128 175 White Blood Count 11.2 H Red Blood Count 3.27 L Hemoglobin 10.1 L Hematocrit 31.1 L Mean Corpuscular Volume 95.1 Mean Corpuscular Hemoglobin 30.9 Mean Corpuscular Hemoglobin Concent 32.5 Red Cell Distribution Width 13.0 Platelet Count 200 Mean Platelet Volume 10.6 H Neutrophils % 83.1 H Lymphocytes % 9.9 L Monocytes % 5.7 Eosinophils % 0.6 Basophils % 0.2 Nucleated Red Blood Cells % 0.0 Neutrophils # 9.3 H Lymphocytes # 1.1 Monocytes # 0.6 Eosinophils # 0.1 Basophils # 0.0 Nucleated Red Blood Cells # 0.0 Sodium Level 146 H Potassium Level 3.8 Chloride Level 106 Carbon Dioxide Level 30 Anion Gap 14 # Blood Urea Nitrogen 48 #H Creatinine 2.01 #H Glucose Level 147 Calcium Level 8.8 Medications Medications Current Medications Ondansetron HCl (Zofran Inj) 4 mg Q6H PRN IV NAUSEA AND/OR VOMITING Last administered on 12/13/16 01:13; Admin Dose 4 MG; Start 12/02/16 at 22:30 Miscellaneous Information 1 ea NOTE XX ; Start 12/02/16 at 23:00 Glucose (Glutose) 15 gm Q15M PRN PO DECREASED GLUCOSE; Start 12/02/16 at 23:00 Glucose (Glutose) 22.5 gm Q15M PRN PO DECREASED GLUCOSE; Start 12/02/16 at 23: 00 Dextrose (D50w Syringe) 25 ml Q15M PRN IV DECREASED GLUCOSE Last administered on 12/10/16 05:52; Admin Dose 25 ML; Start 12/02/16 at 23:00 Dextrose (D50w Syringe) 50 ml Q15M PRN IV DECREASED GLUCOSE; Start 12/02/16 at 23:00 Glucagon (Glucagen) 1 mg Q15M PRN IM DECREASED GLUCOSE; Start 12/02/16 at 23:00 Glucose (Glutose) 15 gm Q15M PRN BUCCAL DECREASED GLUCOSE; Start 12/02/16 at 23 :00 Gabapentin (Neurontin) 800 mg TID PO Last administered on 12/08/16 20:33; Admin Dose 800 MG; Start 12/03/16 at 09:00; Status Future Hold Benazepril HCl (Lotensin) 10 mg DAILY PO Last administered on 12/07/16 08:26; Admin Dose 10 MG; Start 12/04/16 at 09:00; Status Future Hold Acetaminophen (Tylenol Supp) 650 mg Q6H PRN [place] ELEVATED TEMPERATURE Last administered on 01/13/17 20:32; Admin Dose 650 MG; Start 12/09/16 at 17:00 Hydralazine HCl (Apresoline) 10 mg Q6H PRN IV SBP>150mm hg Last administered on 12/19/16 08:50; Admin Dose 10 MG; Start 12/11/16 at 10:30 Morphine Sulfate (morphine) 2 mg Q2H PRN IV PAIN LEVEL 4-7; Start 12/13/16 at 10 :00 Collagenase 1 applic 1 applic DAILY TOP Last administered on 01/15/17 10:15; Admin Dose 1 APPLIC; Start 01/04/17 at 09:00 Propofol 100 ml @ 2.544 mls/ hr Q12H IV Last administered on 01/08/17 04:00; Admin Dose 2.544 MLS/HR; Start 01/08/17 at 04:00 Meropenem 100 ml @ 200 mls/hr Q24H IVPB Last administered on 01/14/17 20:37; Admin Dose 200 MLS/HR; Start 01/08/17 at 21:00 Linezolid (Zyvox 600mg/D5W (Pmx)) 300 ml @ 300 mls/hr Q12 IVPB Last administered on 01/15/17 08:58; Admin Dose 300 MLS/HR; Start 01/08/17 at 18:00 Insulin Aspart (Novolog Insulin Pen) NOVOLOG *MODERATE* ALGORI... Q4 SC Last administered on 01/15/17 09:05; Admin Dose 2 UNIT; Start 01/09/17 at 14:15 Diagnostic Test (Pha) 1 ea 1 ea 02 XX Last administered on 01/15/17 02:14; Admin Dose 1 EA; Start 01/10/17 at 02:00 Caspofungin/ Sodium Chloride (Cancidas/NS) 250 ml @ 250 mls/hr Q24H IVPB Last administered on 01/15/17 10:15; Admin Dose 250 MLS/HR; Start 01/13/17 at 09:30 Metoprolol Tartrate (Lopressor) 5 mg Q4 PRN IV FOR H.R>110; Start 01/12/17 at 17:30 Acetaminophen (Tylenol Liquid) 650 mg Q6H PRN NGT PAIN AND [place] ELEVATED TEMP; Start 01/13/17 at 23:30 Amiodarone HCl (Cordarone) 200 mg BID NGT Last administered on 01/15/17 08:57; Admin Dose 200 MG; Start 01/13/17 at 21:00 Apixaban (Eliquis) 2.5 mg BID NGT Last administered on 01/15/17 08:58; Admin Dose 2.5 MG; Start 01/13/17 at 21:00 Acetaminophen/ Hydrocodone Bitart ([place] (5/325)) 1 tab Q6H PRN NGT PAIN LEVEL 4-7; Start 01/13/17 at 23:30 Levetiracetam (Keppra Liquid) 1,000 mg DAILY NGT Last administered on 01/15/17 08:58; Admin Dose 1,000 MG; Start 01/14/17 at 09:00 Meclizine HCl (Antivert) 25 mg TID PRN NGT dizziness; Start 01/13/17 at 20:00 Metoprolol Tartrate (Lopressor) 50 mg BID NGT Last administered on 01/14/17 20: 28; Admin Dose 50 MG; Start 01/13/17 at 21:00 Zolpidem Tartrate (Ambien) 5 mg HS PRN NGT INSOMNIA; Start 01/13/17 at 20:00 Aspirin (Aspirin) 81 mg DAILY NGT Last administered on 01/15/17 08:57; Admin Dose 81 MG; Start 01/14/17 at 09:00 Docusate Sodium (Colace Liquid Cup) 100 mg BID NGT Last administered on 08:58; Admin Dose 100 MG; Start 01/13/17 at 21:00 Pantoprazole (Protonix Iv) 40 mg DAILY@06 IV Last administered on 01/15/17 05: 13; Admin Dose 40 MG; Start 01/14/17 at 06:00 Insulin Glargine (Lantus) 34 unit DAILY@20 SC Last administered on 01/14/17 20: 42; Admin Dose 34 UNIT; Start 01/14/17 at 20:00 YULIANA SIMMONS Jan 15, 2017 11:49
[2017-01-15] MEDS ORDERED: INSULIN ASPART [NOVOLOG] 3 ML PEN SC ONE (14:00)
--- NOTE | 2017-01-15 15:40 | CONS ---
Date/Time of Note Date/Time of Note DATE: 01/15/17 TIME: 15:39 Assessment/Plan Assessment/Plan Additional Assessment/Plan -S/p cardiopulmonary arrest on 12/09/2016 and on 01/08/2017 - 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 Blood cultures from HD catheter on 12/13/2016 are negative to date. 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 MRI on 12/06/2016 and bone scan on showed 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 and left fourth proximal phalanx. superficial swab grew inna only - s/p right pleural effusion s/p thoracentesis with .9L removed on 12/16/2016 - severe , EF 40-45% per TTE 12/17/16 - DM - Hgb A1c 8.7% - HTN associated with DM Plan: plan for HD today S/p EEG showed epileptiform activity- stared on keppra by Neurology - poor prognosis for meaningful recovery as per Neurology S/P family metting yesterday- Full Code pt has severe , very labile BP sometimes with HD will continue to follow up on patient and continue HD until family makes some decision, D/w with today at bedside with maori neurology hospitalist- she wants to continue HD as of now Consultation Date/Type/Reason Admit Date/Time Dec 02, 2016 at 21:01 Initial Consult Date Type of Consultation: NEPHROLOGY Referring Provider: VIET PARKER MD 24 HR Interval Summary Free Text/Dictation Eye open, pt is not following any commands Exam/Review of Systems Vital Signs Vitals Vital Signs Date Time Temp Pulse Resp B/P Pulse Ox O2 Delivery O2 Flow Rate FiO2 01/15/17 14:30 76 84/53 100 01/15/17 14:00 18 Mechanical Ventilator 01/15/17 13:04 30 01/15/17 12:00 98.8 Intake and Output 01/14/17 01/14/17 01/15/17 15:00 23:00 07:00 Intake Total 590 ml 1130 ml 840 ml Output Total 2400 ml 2500 ml Balance 590 ml -1270 ml -1660 ml Exam Constitutional: non verbal ENMT: Et tube in place Neck: non-tender, supple Respiratory: other (Intubated) Cardiovascular: nl pulses, regular rate and rhythm Gastrointestinal: nl liver, spleen, non-tender, soft Neurological: other (Eyes are open but does not follow commands, does not communicate, intubated and mechanically ventilated, very limited exam) + permcath in place Results Result Diagram: 01/15/17 0700 01/15/17 0700 Results 24 hrs Laboratory Tests Test 01/14/17 16:54 01/14/17 20:40 01/15/17 00:47 01/15/17 02:20 Bedside Glucose 158 205 224 H 150 Test 01/15/17 05:12 01/15/17 07:00 01/15/17 09:04 01/15/17 13:30 Bedside Glucose 128 175 301 H White Blood Count 11.2 H Red Blood Count 3.27 L Hemoglobin 10.1 L Hematocrit 31.1 L Mean Corpuscular Volume 95.1 Mean Corpuscular Hemoglobin 30.9 Mean Corpuscular Hemoglobin Concent 32.5 Red Cell Distribution Width 13.0 Platelet Count 200 Mean Platelet Volume 10.6 H Neutrophils % 83.1 H Lymphocytes % 9.9 L Monocytes % 5.7 Eosinophils % 0.6 Basophils % 0.2 Nucleated Red Blood Cells % 0.0 Neutrophils # 9.3 H Lymphocytes # 1.1 Monocytes # 0.6 Eosinophils # 0.1 Basophils # 0.0 Nucleated Red Blood Cells # 0.0 Sodium Level 146 H Potassium Level 3.8 Chloride Level 106 Carbon Dioxide Level 30 Anion Gap 14 # Blood Urea Nitrogen 48 #H Creatinine 2.01 #H Glucose Level 147 Calcium Level 8.8 Test 01/15/17 15:02 Bedside Glucose 214 Medications Medications Current Medications Ondansetron HCl (Zofran Inj) 4 mg Q6H PRN IV NAUSEA AND/OR VOMITING Last administered on 12/13/16t 01:13; Admin Dose 4 MG; Start 12/02/16 at 22:30 Miscellaneous Information 1 ea NOTE XX ; Start 12/02/16 at 23:00 Glucose (Glutose) 15 gm Q15M PRN PO DECREASED GLUCOSE; Start 12/02/16 at 23:00 Glucose (Glutose) 22.5 gm Q15M PRN PO DECREASED GLUCOSE; Start 12/02/16 at 23: 00 Dextrose (D50w Syringe) 25 ml Q15M PRN IV DECREASED GLUCOSE Last administered on 12/10/16 05:52; Admin Dose 25 ML; Start 12/02/16 at 23:00 Dextrose (D50w Syringe) 50 ml Q15M PRN IV DECREASED GLUCOSE; Start 12/02/16 at 23:00 Glucagon (Glucagen) 1 mg Q15M PRN IM DECREASED GLUCOSE; Start 12/02/16 at 23:00 Glucose (Glutose) 15 gm Q15M PRN BUCCAL DECREASED GLUCOSE; Start 12/02/16 at 23 :00 Gabapentin (Neurontin) 800 mg TID PO Last administered on 12/08/16 20:33; Admin Dose 800 MG; Start 12/03/16 at 09:00; Status Future Hold Benazepril HCl (Lotensin) 10 mg DAILY PO Last administered on 12/07/16 08:26; Admin Dose 10 MG; Start 12/04/16 at 09:00; Status Future Hold Acetaminophen (Tylenol Supp) 650 mg Q6H PRN [place] ELEVATED TEMPERATURE Last administered on 01/13/17 20:32; Admin Dose 650 MG; Start 12/09/16 at 17:00 Hydralazine HCl (Apresoline) 10 mg Q6H PRN IV SBP>150mm hg Last administered on 12/19/16 08:50; Admin Dose 10 MG; Start 12/11/16 at 10:30 Morphine Sulfate (morphine) 2 mg Q2H PRN IV PAIN LEVEL 4-7; Start 12/13/16 at 10 :00 Collagenase 1 applic 1 applic DAILY TOP Last administered on 01/15/17 10:15; Admin Dose 1 APPLIC; Start 01/04/17 at 09:00 Propofol 100 ml @ 2.544 mls/ hr Q12H IV Last administered on 01/08/17 04:00; Admin Dose 2.544 MLS/HR; Start 01/08/17 at 04:00 Meropenem 100 ml @ 200 mls/hr Q24H IVPB Last administered on 01/14/17 20:37; Admin Dose 200 MLS/HR; Start 01/08/17 at 21:00 Linezolid (Zyvox 600mg/D5W (Pmx)) 300 ml @ 300 mls/hr Q12 IVPB Last administered on 01/15/17 08:58; Admin Dose 300 MLS/HR; Start 01/08/17 at 18:00 Insulin Aspart (Novolog Insulin Pen) NOVOLOG *MODERATE* ALGORI... Q4 SC Last administered on 01/15/17 13:33; Admin Dose 10 UNIT; Start 01/09/17 at 14:15 Diagnostic Test (Pha) 1 ea 1 ea 02 XX Last administered on 01/15/17 02:14; Admin Dose 1 EA; Start 01/10/17 at 02:00 Caspofungin/ Sodium Chloride (Cancidas/NS) 250 ml @ 250 mls/hr Q24H IVPB Last administered on 01/15/17 10:15; Admin Dose 250 MLS/HR; Start 01/13/17 at 09:30 Metoprolol Tartrate (Lopressor) 5 mg Q4 PRN IV FOR H.R>110; Start 01/12/17 at 17:30 Acetaminophen (Tylenol Liquid) 650 mg Q6H PRN NGT PAIN AND OR ELEVATED TEMP; Start 01/13/17 at 23:30 Amiodarone HCl (Cordarone) 200 mg BID NGT Last administered on 01/15/17 08:57; Admin Dose 200 MG; Start 01/13/17 at 21:00 Apixaban (Eliquis) 2.5 mg BID NGT Last administered on 01/15/17 08:58; Admin Dose 2.5 MG; Start 01/13/17 at 21:00 Acetaminophen/ Hydrocodone Bitart ([place] (5/325)) 1 tab Q6H PRN NGT PAIN LEVEL 4-7; Start 01/13/17 at 23:30 Levetiracetam (Keppra Liquid) 1,000 mg DAILY NGT Last administered on 01/15/17 08:58; Admin Dose 1,000 MG; Start 01/14/17 at 09:00 Meclizine HCl (Antivert) 25 mg TID PRN NGT dizziness; Start 01/13/17 at 20:00 Metoprolol Tartrate (Lopressor) 50 mg BID NGT Last administered on 01/14/17 20: 28; Admin Dose 50 MG; Start 01/13/17 at 21:00 Zolpidem Tartrate (Ambien) 5 mg HS PRN NGT INSOMNIA; Start 01/13/17 at 20:00 Aspirin (Aspirin) 81 mg DAILY NGT Last administered on 01/15/17 08:57; Admin Dose 81 MG; Start 01/14/17 at 09:00 Docusate Sodium (Colace Liquid Cup) 100 mg BID NGT Last administered on 08:58; Admin Dose 100 MG; Start 01/13/17 at 21:00 Pantoprazole (Protonix Iv) 40 mg DAILY@06 IV Last administered on 01/15/17 05: 13; Admin Dose 40 MG; Start 01/14/17 at 06:00 Insulin Glargine (Lantus) 34 unit DAILY@20 SC Last administered on 01/14/17 20: 42; Admin Dose 34 UNIT; Start 01/14/17 at 20:00 TASHIA MCGARRY MD Jan 15, 2017 15:40
--- NOTE | 2017-01-15 16:12 | CONS ---
TRAV SHEPARD 01/15/17 1612: Date/Time of Note Date/Time of Note DATE: 01/15/17 TIME: 16:11 Assessment/Plan Assessment/Plan Additional Assessment/Plan - recurrent cardiopulmonary arrest on 12/09/2016 and on 01/08/2017 - SIRS vs. sepsis - possible aspiration pneumonia based on CXR vs. volume overload--+pseudomonas - s/p recurrent sepsis - 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 Blood cultures from HD catheter on 12/13/2016 are negative to date. 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 MRI on 12/06/2016 and bone scan on showed 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 and left fourth proximal phalanx. superficial swab grew inna only. At present, no e/o persistent infection - s/p right pleural effusion s/p thoracentesis with .9L removed on 12/16/2016; ( Note: there is no pleural fluid cx since orders were placed after Right thoracentesis, and Left thoracentesis was not performed on 12/17/16 d/t insufficient fluid) - funguria - ARANZA, on HD from 12/09/2016 - oliguria - A fib--now SR - small nonreversible perfusion abnormality in the inferoapical and inferior carver; EF 36% per Lexiscan 12/24/2016 - severe , EF 40-45% per TTE 12/17/16 - DM - Hgb A1c 8.7% - HTN associated with DM - recurrent episodes of respiratory failure - acute encephalopathy - stage 3 decubitus ulcer of coccyx without evidence of infection recommendations: - ordered: screening CT chest/abd/pel to r/o possible deep seated infections, repeat blood cultures from HD catheter and by phlebotomy - Consider repeat thoracentesis given B/L pleural effusions - straight cath and send UA/UCx(e/o retension on CT) - continue linezolid empirically (01/08/2017-), caspofungin empirically (2016-); d/c fátima and add cefepime(renally dosed) - will monitor CBC while Pt's on linezolid - will adjust his antibiotics depending on his culture results and his clinical status - Pt needs 6 weeks of antibiotics to treat 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 and left fourth proximal phalanx: 12/03/2016 through 01/15/2017 (s/p pip/tazo 12/03/16-01/08/17) - wound care of L 1st toe and coccyx management d/w Pt's RN, and Dr Moses Consultation Date/Type/Reason Admit Date/Time Dec 02, 2016 at 21:01 Initial Consult Date 12/03/16 Type of Consultation: ID Referring Provider: VIET PARKER MD 24 HR Interval Summary Free Text/Dictation No new issues in the last 24 hrs. Still obtunded, afebrile. No pressors, HD today. +SCx for Psuedomonas Subjective hx not possible: pt non-verbal Constitutional: requiring IVF, requiring O2 Exam/Review of Systems Vital Signs Vitals Vital Signs Date Time Temp Pulse Resp B/P Pulse Ox O2 Delivery O2 Flow Rate FiO2 01/15/17 14:30 76 84/53 100 01/15/17 14:00 18 Mechanical Ventilator 01/15/17 13:04 30 01/15/17 12:00 98.8 Intake and Output 01/14/17 01/14/17 01/15/17 15:00 23:00 07:00 Intake Total 590 ml 1130 ml 840 ml Output Total 2400 ml 2500 ml Balance 590 ml -1270 ml -1660 ml Exam Head: atraumatic, normocephalic ENMT: nl external ears & nose, other (+ETT) Respiratory: clear to auscultation, other (Vent support) Cardiovascular: regular rate and rhythm Gastrointestinal: bowel sounds, non-tender, soft Musculoskeletal: other (Atrophy) Extremities: other (Lt great toe dsg cdi) Neurological: unresponsive Results Result Diagram: 01/15/17 0700 01/15/17 0700 Results 24 hrs Laboratory Tests Test 01/14/17 16:54 01/14/17 20:40 01/15/17 00:47 01/15/17 02:20 Bedside Glucose 158 205 224 H 150 Test 01/15/17 05:12 01/15/17 07:00 01/15/17 09:04 01/15/17 13:30 Bedside Glucose 128 175 301 H White Blood Count 11.2 H Red Blood Count 3.27 L Hemoglobin 10.1 L Hematocrit 31.1 L Mean Corpuscular Volume 95.1 Mean Corpuscular Hemoglobin 30.9 Mean Corpuscular Hemoglobin Concent 32.5 Red Cell Distribution Width 13.0 Platelet Count 200 Mean Platelet Volume 10.6 H Neutrophils % 83.1 H Lymphocytes % 9.9 L Monocytes % 5.7 Eosinophils % 0.6 Basophils % 0.2 Nucleated Red Blood Cells % 0.0 Neutrophils # 9.3 H Lymphocytes # 1.1 Monocytes # 0.6 Eosinophils # 0.1 Basophils # 0.0 Nucleated Red Blood Cells # 0.0 Sodium Level 146 H Potassium Level 3.8 Chloride Level 106 Carbon Dioxide Level 30 Anion Gap 14 # Blood Urea Nitrogen 48 #H Creatinine 2.01 #H Glucose Level 147 Calcium Level 8.8 Test 01/15/17 15:02 Bedside Glucose 214 Medications Medications Current Medications Ondansetron HCl (Zofran Inj) 4 mg Q6H PRN IV NAUSEA AND/OR VOMITING Last administered on 12/13/16 01:13; Admin Dose 4 MG; Start 12/02/16 at 22:30 Miscellaneous Information 1 ea NOTE XX ; Start 12/02/16 at 23:00 Glucose (Glutose) 15 gm Q15M PRN PO DECREASED GLUCOSE; Start 12/02/16 at 23:00 Glucose (Glutose) 22.5 gm Q15M PRN PO DECREASED GLUCOSE; Start 12/02/16 at 23: 00 Dextrose (D50w Syringe) 25 ml Q15M PRN IV DECREASED GLUCOSE Last administered on 12/10/16 05:52; Admin Dose 25 ML; Start 12/02/16 at 23:00 Dextrose (D50w Syringe) 50 ml Q15M PRN IV DECREASED GLUCOSE; Start 12/02/16 at 23:00 Glucagon (Glucagen) 1 mg Q15M PRN IM DECREASED GLUCOSE; Start 12/02/16 at 23:00 Glucose (Glutose) 15 gm Q15M PRN BUCCAL DECREASED GLUCOSE; Start 12/02/16 at 23 :00 Gabapentin (Neurontin) 800 mg TID PO Last administered on 12/08/16 20:33; Admin Dose 800 MG; Start 12/03/16 at 09:00; Status Future Hold Benazepril HCl (Lotensin) 10 mg DAILY PO Last administered on 12/07/16 08:26; Admin Dose 10 MG; Start 12/04/16 at 09:00; Status Future Hold Acetaminophen (Tylenol Supp) 650 mg Q6H PRN [place] ELEVATED TEMPERATURE Last administered on 01/13/17 20:32; Admin Dose 650 MG; Start 12/09/16 at 17:00 Hydralazine HCl (Apresoline) 10 mg Q6H PRN IV SBP>150mm hg Last administered on 12/19/16 08:50; Admin Dose 10 MG; Start 12/11/16 at 10:30 Morphine Sulfate (morphine) 2 mg Q2H PRN IV PAIN LEVEL 4-7; Start 12/13/16 at 10 :00 Collagenase 1 applic 1 applic DAILY TOP Last administered on 01/15/17 10:15; Admin Dose 1 APPLIC; Start 01/04/17 at 09:00 Propofol 100 ml @ 2.544 mls/ hr Q12H IV Last administered on 01/08/17 04:00; Admin Dose 2.544 MLS/HR; Start 01/08/17 at 04:00 Meropenem 100 ml @ 200 mls/hr Q24H IVPB Last administered on 01/14/17 20:37; Admin Dose 200 MLS/HR; Start 01/08/17 at 21:00 Linezolid (Zyvox 600mg/D5W (Pmx)) 300 ml @ 300 mls/hr Q12 IVPB Last administered on 01/15/17 08:58; Admin Dose 300 MLS/HR; Start 01/08/17 at 18:00 Insulin Aspart (Novolog Insulin Pen) NOVOLOG *MODERATE* ALGORI... Q4 SC Last administered on 01/15/17 13:33; Admin Dose 10 UNIT; Start 01/09/17 at 14:15 Diagnostic Test (Pha) 1 ea 1 ea 02 XX Last administered on 01/15/17 02:14; Admin Dose 1 EA; Start 01/10/17 at 02:00 Caspofungin/ Sodium Chloride (Cancidas/NS) 250 ml @ 250 mls/hr Q24H IVPB Last administered on 01/15/17 10:15; Admin Dose 250 MLS/HR; Start 01/13/17 at 09:30 Metoprolol Tartrate (Lopressor) 5 mg Q4 PRN IV FOR H.R>110; Start 01/12/17 at 17:30 Acetaminophen (Tylenol Liquid) 650 mg Q6H PRN NGT PAIN AND OR ELEVATED TEMP; Start 01/13/17 at 23:30 Amiodarone HCl (Cordarone) 200 mg BID NGT Last administered on 01/15/17 08:57; Admin Dose 200 MG; Start 01/13/17 at 21:00 Apixaban (Eliquis) 2.5 mg BID NGT Last administered on 01/15/17 08:58; Admin Dose 2.5 MG; Start 01/13/17 at 21:00 Acetaminophen/ Hydrocodone Bitart ([place] (5/325)) 1 tab Q6H PRN NGT PAIN LEVEL 4-7; Start 01/13/17 at 23:30 Levetiracetam (Keppra Liquid) 1,000 mg DAILY NGT Last administered on 01/15/17 08:58; Admin Dose 1,000 MG; Start 01/14/17 at 09:00 Meclizine HCl (Antivert) 25 mg TID PRN NGT dizziness; Start 01/13/17 at 20:00 Metoprolol Tartrate (Lopressor) 50 mg BID NGT Last administered on 01/14/17 20: 28; Admin Dose 50 MG; Start 01/13/17 at 21:00 Zolpidem Tartrate (Ambien) 5 mg HS PRN NGT INSOMNIA; Start 01/13/17 at 20:00 Aspirin (Aspirin) 81 mg DAILY NGT Last administered on 01/15/17 08:57; Admin Dose 81 MG; Start 01/14/17 at 09:00 Docusate Sodium (Colace Liquid Cup) 100 mg BID NGT Last administered on 08:58; Admin Dose 100 MG; Start 01/13/17 at 21:00 Pantoprazole (Protonix Iv) 40 mg DAILY@06 IV Last administered on 01/15/17 05: 13; Admin Dose 40 MG; Start 01/14/17 at 06:00 Insulin Glargine (Lantus) 34 unit DAILY@20 SC Last administered on 01/14/17 20: 42; Admin Dose 34 UNIT; Start 01/14/17 at 20:00 Insulin Aspart (Novolog Insulin Pen) 5 unit BID SC ; Start 01/15/17 at 21:00 CHRISTY MOSES M.D. 01/16/17 1052: Assessment/Plan Assessment/Plan Additional Assessment/Plan Aurelia attestation: I discussed the management with YOHANNES Shepard and agree with above Exam/Review of Systems Results Result Diagram: 01/15/17 0700 01/15/17 0700 TRAV SHEPARD Jan 15, 2017 16:12 CHRISTY MOSES M.D. Jan 16, 2017 10:52
[2017-01-15] MEDS: INSULIN GLARGINE [LANtus] 3 ML PEN SC SCH (19:55)
[2017-01-15] MEDS: CEFEPIME 1GM/50 ML (PMX) 50 ML IVPB SCH (20:32)
[2017-01-16] VITALS (39 sets, daily range): BP systolic 95–137; BP diastolic 40–61; PULSE 57–82; RESP 11–29
[2017-01-16] MEDS: INSULIN ASPART [NOVOLOG] 3 ML PEN SC SCH ×8 (01:24→20:44)
[2017-01-16] MEDS: ALBUTEROL 18 GM INHALER INH SCH ×4 (01:50→19:11)
[2017-01-16] MEDS: ACCU-CHEK XX SCH (02:00)
[2017-01-16] MEDS: PROPOFOL 100 ML IV SCH (03:23)
[2017-01-16 04:32] LABS: ADD SCAN DIFF NO
[2017-01-16 04:36] LABS: BASOPHILS % 0.1 % (0.0-2.0); EOSINOPHILS % 0.2 % (0.0-7.0); HEMATOCRIT 30.7 % (42.0-52.0); HEMOGLOBIN 9.7 g/dl (14.0-18.0); LYMPHOCYTES # 1.3 10^3/ul (0.8-2.9); LYMPHOCYTES % 11.3 % (15.0-51.0); MEAN CORPUSCULAR HEMOGLOBIN 29.9 pg (29.0-33.0); MEAN CORPUSCULAR HGB CONC 31.6 g/dl (32.0-37.0); MEAN CORPUSCULAR VOLUME 94.8 fl (82.0-101.0); MEAN PLATELET VOLUME 10.7 fl (7.4-10.4); MONOCYTES % 8.3 % (0.0-11.0); NEUTROPHIL # 9.3 10^3/ul (1.6-7.5); NEUTROPHILS % 79.5 % (39.0-77.0); PLATELET COUNT 178 10^3/UL (140-415); RED BLOOD COUNT 3.24 10^6/ul (4.70-6.10); RED CELL DISTRIBUTION WIDTH 13.2 % (11.5-14.5); WHITE BLOOD COUNT 11.7 10^3/ul (4.8-10.8)
[2017-01-16 05:02] LABS: ALBUMIN/GLOBULIN RATIO 1.25; BILIRUBIN,INDIRECT 0.4 mg/dl (0-1.1); BILIRUBIN,TOTAL 0.4 mg/dl (0.2-1.3); CALCIUM 8.6 mg/dl (8.4-10.2); CREATININE 2.88 mg/dl (0.61-1.24); POTASSIUM 4.4 mmol/L (3.5-5.1); TOTAL PROTEIN 7.2 g/dl (6.1-8.1)
[2017-01-16] MEDS: PANTOPRAZOLE 40 MG INJ IV SCH (05:04)
--- NOTE | 2017-01-16 07:51 | RADRPT ---
PROCEDURE: CT Chest, Abdomen and Pelvis without intravenous contrast CLINICAL INDICATION: Fever, abdominal pain. TECHNIQUE: CT of the chest, abdomen and pelvis was performed on a multidetector scanner without IV c ontrast. Coronal and sagittal images were reformatted from the axial data set. One or more of the fo llowin dose reduction techniques were used: automated exposure control, adjustment of the mA and/or kV according to patient size, use of iterative reconstruction technique. CTDI = 14.83 mGy. DLP = 12 16.86 mGy-cm. COMPARISON: CT, 12/15/2016 FINDINGS: CT chest: There are moderate to large bilateral pleural effusions, with associated bibasilar atelectasis. Patc hy bilateral perihilar ground-glass opacity and interstitial thickening is seen, suggestive of mild pulmonary edema. No focal acute infiltrate or pneumothorax is identified. The central tracheobronchi al tree is clear. No pulmonary nodule or mass is identified. Endotracheal tube tip is in the mid tra beverly. There is stable mild cardiomegaly, without pericardial effusion. Coronary arterial and aortic athero sclerotic calcifications are present. There is no thoracic aortic aneurysm. No mediastinal, hilar, a xillary or supraclavicular lymphadenopathy is identified. There has been interval placement of a rig ht-sided Port-A-Cath, with tip at the SVC/right atrial junction. CT abdomen and pelvis: Nasogastric tube tip is within the stomach. Liver, gallbladder, biliary tree, pancreas, spleen, adre nal glands and kidneys are unremarkable. No urolithiasis or obstructive uropathy is identified. The aorta is of normal caliber. Aortic vascular calcifications are present. There is no retroperitoneal lymphadenopathy. The melita hepatis region is clear. Moderate retained fecal material may indicate constipation. No bowel obstruction, free intraperitone al air or abscess is identified. There is no diverticulosis, diverticulitis or colitis. The appendix is well visualized and normal. Urinary bladder is moderately distended, concerning for urinary rete ntion. No pelvic mass, free fluid or lymphadenopathy is identified. Fat containing left inguinal her taya is noted. The surrounding osseous structures are remarkable for degenerative spondylosis of the spine. No oste olytic or osteoblastic lesion is detected. IMPRESSION: 1. There are moderate to large bilateral pleural effusions, with associated bibasilar atelectasis, s imilar to prior CT. 2. Perihilar ground-glass opacity and interstitial thickening is again noted, compatible with mild p ulmonary edema. 3. There is stable mild cardiomegaly. Coronary arterial and aortoiliac atherosclerotic calcification s are present. 4. Right-sided Perma-Cath, endotracheal tube, nasogastric tube are in place. 5. Urinary bladder is moderately distended, concerning for urinary retention. 6. Moderate retained fecal material is suggestive of constipation. 7. Fat-containing left inguinal hernia is noted without incarceration. 8. There is no evidence of colitis or abscess. RPTAT: HH .Boston Cooley MD, MD Date Time Electronically viewed and signed by .Boston Cooley MD, MD on 01/16/2017 07:51 .R/
[2017-01-16] MEDS: METOPROLOL 50 MG TAB NGT SCH ×3 (09:00→20:40)
[2017-01-16] MEDS: COLLAGENASE 30 GM TUBE TOP SCH ×2 (09:00→10:30)
[2017-01-16] MEDS: DOCUSATE SODIUM 10 MG/ML (10ML CUP) NGT SCH ×2 (09:44→20:38)
[2017-01-16] MEDS: APIXABAN 5 MG TABLET NGT SCH ×2 (09:44→20:40)
[2017-01-16] MEDS: ASPIRIN 81 MG TAB NGT SCH (09:44)
[2017-01-16] MEDS: LEVETIRACETAM (100 MG/ML) 5ML CUP NGT SCH (09:44)
[2017-01-16] MEDS: CEFEPIME 1GM/50 ML (PMX) 50 ML IVPB SCH (09:44)
[2017-01-16] MEDS: AMIODARONE 200 MG TAB NGT SCH ×2 (09:45→20:38)
[2017-01-16 10:18] LABS: ADD UMIC YES; UR BILIRUBIN (Dip) NEGATIVE (NEGATIVE); UR BLOOD (Dip) NEGATIVE (NEGATIVE); UR COLOR YELLOW (YELLOW); UR GLUCOSE (Dip) NEGATIVE (NEGATIVE); UR KETONES (Dip) NEGATIVE (NEGATIVE); UR LEUKOCYTE ESTERASE (Dip) TRACE (NEGATIVE); UR NITRITE (Dip) NEGATIVE (NEGATIVE); UR TOTAL PROTEIN (Dip) NEGATIVE (NEGATIVE); UR UROBILINOGEN (Dip) 0.2 E.U./dL (0.1-1.0)
--- NOTE | 2017-01-16 10:24 | RADRPT ---
PROCEDURE: XR Chest. CLINICAL INDICATION: Congestive heart failure TECHNIQUE: Single frontal chest x-ray. COMPARISON: 01/12/2017 FINDINGS: Endotracheal tube, nasogastric tube, right-sided tunneled dialysis catheter in place unchanged. Cam ateral pleural effusions and bibasilar atelectasis are decreased. There is mild bibasilar atelectas is. . Calcific atherosclerosis of the aorta is present.. The cardiomediastinal silhouette is unrem arkable. The osseous structures are intact. IMPRESSION: Tubes and lines unchanged. Decreased bilateral pleural effusions and bibasilar atelectasis.. RPTAT: QQ .Clint Villafana MD, Date Time Electronically viewed and signed by .Clint Villafana MD, on 01/16/2017 10:24 .L/
[2017-01-16] MEDS: LINEZOLID 600 MG/D5W (PMX) 300 ML IVPB SCH ×2 (10:27→20:42)
--- NOTE | 2017-01-16 10:43 | CONS ---
Date/Time of Note Date/Time of Note DATE: 01/16/17 TIME: 10:41 Assessment/Plan Assessment/Plan Additional Assessment/Plan 1. Atrial fibrillation-Having episodes of PAF with reasonable rate control - rate controlled, con't to follow - In SINUS NOW. 2. Hypotension-borderline while on HD currently- well Rx, con't med rx- better contrtolled 3. Abnormal electrocardiogram with inferolateral T-wave inversions. 4. Respiratory failure-s/p intubation and remains thus- on vent ? trach if family desires 5. Nonhealing toe ulceration-vascular following 6. Peripheral arterial disease by arterial ultrasound of the lower extremities this admission. 7. Diabetes mellitus. 8. Fevers. 9. Positive troponin-downtrended - no intervention planned now 10.Bradycardia-improved/stable- HR stable 11.-severe by echo - no intervention planned 12.Cardiomyopathy-EF 40-45% by echo/36% by stress with no ischemia but positive scar. EF <30% by echo post arrest 14.Encephalopathy-anoxic 15. s/p cardiopulmonary arrest 01/08 Consultation Date/Type/Reason Admit Date/Time Dec 02, 2016 at 21:01 Initial Consult Date 12/03/16 Type of Consultation: ID Referring Provider: VIET PARKER MD 24 HR Interval Summary Free Text/Dictation No acute change - in sinus - will Rx as needed - awaiting EEG f/up. ROS: No fever, no chills, no nausea, no vomiting, no diarrhea/constipation No recent weight changes No chest pain, no PND, no orthopnea No dizziness, blurred vision No thirst, no heat or cold intolerance (per nurse) Exam/Review of Systems Vital Signs Vitals Vital Signs Date Time Temp Pulse Resp B/P Pulse Ox O2 Delivery O2 Flow Rate FiO2 01/16/17 10:00 73 22 137/61 100 Mechanical Ventilator 01/16/17 08:30 30 01/16/17 08:00 99.4 Intake and Output 01/15/17 01/15/17 01/16/17 15:00 23:00 07:00 Intake Total 950 ml 630 ml 340 ml Output Total 1 ml 225 ml Balance 950 ml 629 ml 115 ml Exam General: WN/WD/NAD, AOx 0 HEENT: Unicetric/atraumatic/EOMI (does not follow commands) NECK: JVD elevated, no thyromegaly Lymph: no lymphadenopathy HEART: regular with no S3, II/ systolic murmur at apex LUNGS: Coarse sounds ABD: soft, NT, ND, +BS : Intact Neuro: non focal SKIN: chronic changes EXT: trace edema Results Result Diagram: 01/16/17 0425 01/16/17 0425 Results 24 hrs Laboratory Tests Test 01/15/17 13:30 01/15/17 15:02 01/15/17 17:29 01/15/17 19:50 Bedside Glucose 301 H 214 207 229 H Test 01/15/17 20:37 01/16/17 01:15 01/16/17 04:25 01/16/17 05:02 Bedside Glucose 202 220 155 White Blood Count 11.7 H Red Blood Count 3.24 L Hemoglobin 9.7 L Hematocrit 30.7 L Mean Corpuscular Volume 94.8 Mean Corpuscular Hemoglobin 29.9 Mean Corpuscular Hemoglobin Concent 31.6 L Red Cell Distribution Width 13.2 Platelet Count 178 Mean Platelet Volume 10.7 H Neutrophils % 79.5 H Lymphocytes % 11.3 L Monocytes % 8.3 Eosinophils % 0.2 Basophils % 0.1 Nucleated Red Blood Cells % 0.0 Neutrophils # 9.3 H Lymphocytes # 1.3 Monocytes # 1.0 H Eosinophils # 0.0 Basophils # 0.0 Nucleated Red Blood Cells # 0.0 Sodium Level 146 H Potassium Level 4.4 Chloride Level 105 Carbon Dioxide Level 28 Anion Gap 17 H Blood Urea Nitrogen 64 H Creatinine 2.88 H Glucose Level 167 Calcium Level 8.6 Total Bilirubin 0.4 Direct Bilirubin 0.00 Indirect Bilirubin 0.4 Aspartate Amino Transf (AST/SGOT) 25 Alanine Aminotransferase (ALT/SGPT) 27 Alkaline Phosphatase 77 Total Protein 7.2 Albumin 4.0 Globulin 3.20 Albumin/Globulin Ratio 1.25 Test 01/16/17 09:48 Bedside Glucose 150 Medications Medications Current Medications Ondansetron HCl (Zofran Inj) 4 mg Q6H PRN IV NAUSEA AND/OR VOMITING Last administered on 12/13/16t 01:13; Admin Dose 4 MG; Start 12/02/16 at 22:30 Miscellaneous Information 1 ea NOTE XX ; Start 12/02/16 at 23:00 Glucose (Glutose) 15 gm Q15M PRN PO DECREASED GLUCOSE; Start 12/02/16 at 23:00 Glucose (Glutose) 22.5 gm Q15M PRN PO DECREASED GLUCOSE; Start 12/02/16 at 23: 00 Dextrose (D50w Syringe) 25 ml Q15M PRN IV DECREASED GLUCOSE Last administered on 12/10/16 05:52; Admin Dose 25 ML; Start 12/02/16 at 23:00 Dextrose (D50w Syringe) 50 ml Q15M PRN IV DECREASED GLUCOSE; Start 12/02/16 at 23:00 Glucagon (Glucagen) 1 mg Q15M PRN IM DECREASED GLUCOSE; Start 12/02/16 at 23:00 Glucose (Glutose) 15 gm Q15M PRN BUCCAL DECREASED GLUCOSE; Start 12/02/16 at 23 :00 Gabapentin (Neurontin) 800 mg TID PO Last administered on 12/08/16 20:33; Admin Dose 800 MG; Start 12/03/16 at 09:00; Status Future Hold Benazepril HCl (Lotensin) 10 mg DAILY PO Last administered on 12/07/16 08:26; Admin Dose 10 MG; Start 12/04/16 at 09:00; Status Future Hold Acetaminophen (Tylenol Supp) 650 mg Q6H PRN [place] ELEVATED TEMPERATURE Last administered on 01/13/17 20:32; Admin Dose 650 MG; Start 12/09/16 at 17:00 Hydralazine HCl (Apresoline) 10 mg Q6H PRN IV SBP>150mm hg Last administered on 12/19/16 08:50; Admin Dose 10 MG; Start 12/11/16 at 10:30 Morphine Sulfate (morphine) 2 mg Q2H PRN IV PAIN LEVEL 4-7; Start 12/13/16 at 10 :00 Collagenase 1 applic 1 applic DAILY TOP Last administered on 01/15/17 10:15; Admin Dose 1 APPLIC; Start 01/04/17 at 09:00 Propofol 100 ml @ 2.544 mls/ hr Q12H IV Last administered on 01/08/17 04:00; Admin Dose 2.544 MLS/HR; Start 01/08/17 at 04:00 Linezolid (Zyvox 600mg/D5W (Pmx)) 300 ml @ 300 mls/hr Q12 IVPB Last administered on 01/16/17 10:27; Admin Dose 300 MLS/HR; Start 01/08/17 at 18:00 Insulin Aspart (Novolog Insulin Pen) NOVOLOG *MODERATE* ALGORI... Q4 SC Last administered on 01/16/17 09:50; Admin Dose 2 UNIT; Start 01/09/17 at 14:15 Diagnostic Test (Pha) 1 ea 1 ea 02 XX Last administered on 01/16/17 02:00; Admin Dose 1 EA; Start 01/10/17 at 02:00 Caspofungin/ Sodium Chloride (Cancidas/NS) 250 ml @ 250 mls/hr Q24H IVPB Last administered on 01/15/17 10:15; Admin Dose 250 MLS/HR; Start 01/13/17 at 09:30 Metoprolol Tartrate (Lopressor) 5 mg Q4 PRN IV FOR H.R>110; Start 01/12/17 at 17:30 Acetaminophen (Tylenol Liquid) 650 mg Q6H PRN NGT PAIN AND OR ELEVATED TEMP; Start 01/13/17 at 23:30 Amiodarone HCl (Cordarone) 200 mg BID NGT Last administered on 01/16/17 09:45; Admin Dose 200 MG; Start 01/13/17 at 21:00 Apixaban (Eliquis) 2.5 mg BID NGT Last administered on 01/16/17 09:44; Admin Dose 2.5 MG; Start 01/13/17 at 21:00 Acetaminophen/ Hydrocodone Bitart ([place] (5/325)) 1 tab Q6H PRN NGT PAIN LEVEL 4-7; Start 01/13/17 at 23:30 Levetiracetam (Keppra Liquid) 1,000 mg DAILY NGT Last administered on 01/16/17 09:44; Admin Dose 1,000 MG; Start 01/14/17 at 09:00 Meclizine HCl (Antivert) 25 mg TID PRN NGT dizziness; Start 01/13/17 at 20:00 Metoprolol Tartrate (Lopressor) 50 mg BID NGT Last administered on 01/16/17 10: 28; Admin Dose 50 MG; Start 01/13/17 at 21:00 Zolpidem Tartrate (Ambien) 5 mg HS PRN NGT INSOMNIA; Start 01/13/17 at 20:00 Aspirin (Aspirin) 81 mg DAILY NGT Last administered on 01/16/17 09:44; Admin Dose 81 MG; Start 01/14/17 at 09:00 Docusate Sodium (Colace Liquid Cup) 100 mg BID NGT Last administered on 09:44; Admin Dose 100 MG; Start 01/13/17 at 21:00 Pantoprazole (Protonix Iv) 40 mg DAILY@06 IV Last administered on 01/16/17 05: 04; Admin Dose 40 MG; Start 01/14/17 at 06:00 Insulin Glargine (Lantus) 34 unit DAILY@20 SC Last administered on 01/15/17 19: 55; Admin Dose 34 UNIT; Start 01/14/17 at 20:00 Insulin Aspart 5 unit 5 unit BID SC Last administered on 01/16/17 09:49; Admin Dose 5 UNIT; Start 01/15/17 at 21:00 Cefepime HCl (Maxipime 1gm/50 ml (Pmx)) 50 ml @ 100 mls/hr DAILY IVPB Last administered on 01/16/17 09:44; Admin Dose 100 MLS/HR; Start 01/15/17 at 20:00 DAVE NICOLE MD Jan 16, 2017 10:43
[2017-01-16 10:53] LABS: UR CLARITY HAZY (CLEAR); URINE RBCS NONE SEEN /HPF (0)
--- NOTE | 2017-01-16 11:05 | CONS ---
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 Blood cultures from HD catheter on 12/13/2016 are negative to date. 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 MRI on 12/06/2016 and bone scan on showed 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 and left fourth proximal phalanx. superficial swab grew inna only. At present, no e/o persistent infection - recurrent pleural effusion - s/p right pleural effusion s/p thoracentesis with .9L removed on 12/16/2016; ( Note: there is no pleural fluid cx since orders were placed after Right thoracentesis, and Left thoracentesis was not performed on 12/17/16 d/t insufficient fluid) - funguria - ARANZA, on HD from 12/09/2016 - oliguria - A fib - small nonreversible perfusion abnormality in the inferoapical and inferior carver; EF 36% per Lexiscan 12/24/2016 - severe , EF 40-45% per TTE 12/17/16 - DM - Hgb A1c 8.7% - HTN associated with DM - recurrent episodes of respiratory failure - acute encephalopathy - stage 3 decubitus ulcer of coccyx without evidence of infection - urinary retention recommendations: - I recommend and have ordered: LENCHO of the chest to evaluate the size of recurrent pleural effusion - pending results: surveillance blood cultures from HD catheter at time of HD from 01/12/2017, peripheral blood cultures from 01/14/2017, urine culture from straight cath from 01/15/2017 - continue renally dosed cefepime for pseudomonas (01/15/2017-) - continue linezolid empirically (01/08/2017-), caspofungin empirically (2016-) - will monitor CBC while Pt's on linezolid - if LENCHO shows sufficient amount of pleural effusion, I recommend repeat thoracentesis - Pt completed 6 weeks of antibiotics to treat 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 and left fourth proximal phalanx: 12/03/2016-01/15/2017 (s/p pip/tazo 12/03/16-01/08/17) - wound care of L 1st toe and coccyx management d/w Pt's RN the critical care time I took to care for this Pt today was from 1000 to 1040 Problems: Consultation Date/Type/Reason Admit Date/Time Dec 02, 2016 at 21:01 Initial Consult Date 12/03/16 Type of Consultation: ID Referring Provider: VIET PARKER MD 24 HR Interval Summary Subjective hx not possible: pt non-verbal, pt critical, pt critical status Exam/Review of Systems Vital Signs Vitals Vital Signs Date Time Temp Pulse Resp B/P Pulse Ox O2 Delivery O2 Flow Rate FiO2 01/16/17 10:00 73 22 137/61 100 Mechanical Ventilator 01/16/17 08:30 30 01/16/17 08:00 99.4 Intake and Output 01/15/17 01/15/17 01/16/17 15:00 23:00 07:00 Intake Total 950 ml 630 ml 340 ml Output Total 1 ml 225 ml Balance 950 ml 629 ml 115 ml Exam Constitutional: frail, non-verbal Psych: confusion Head: atraumatic, normocephalic Eyes: nl conjunctiva, nl lids, nl sclera ENMT: intubated, nl external ears & nose, nl nasal mucosa & septum, other (NGT) Respiratory: crackles/rales Cardiovascular: nl pulses, regular rate and rhythm Gastrointestinal: non-tender, soft Musculoskeletal: nl extremities to inspection Extremities: No edema Neurological: lethargic Skin: other (stage 3 coccygeal decub without purulence), rash or lesions ( eschar on plantar aspect of L 1st toe) Results Result Diagram: 01/16/1742401/16/17424 Results 24 hrs Laboratory Tests Test 01/15/17 13:30 01/15/17 15:02 01/15/17 17:29 01/15/17 19:50 Bedside Glucose 301 H 214 207 229 H Test 01/15/17 20:37 01/16/17 01:15 01/16/17 04:25 01/16/17 05:02 Bedside Glucose 202 220 155 White Blood Count 11.7 H Red Blood Count 3.24 L Hemoglobin 9.7 L Hematocrit 30.7 L Mean Corpuscular Volume 94.8 Mean Corpuscular Hemoglobin 29.9 Mean Corpuscular Hemoglobin Concent 31.6 L Red Cell Distribution Width 13.2 Platelet Count 178 Mean Platelet Volume 10.7 H Neutrophils % 79.5 H Lymphocytes % 11.3 L Monocytes % 8.3 Eosinophils % 0.2 Basophils % 0.1 Nucleated Red Blood Cells % 0.0 Neutrophils # 9.3 H Lymphocytes # 1.3 Monocytes # 1.0 H Eosinophils # 0.0 Basophils # 0.0 Nucleated Red Blood Cells # 0.0 Sodium Level 146 H Potassium Level 4.4 Chloride Level 105 Carbon Dioxide Level 28 Anion Gap 17 H Blood Urea Nitrogen 64 H Creatinine 2.88 H Glucose Level 167 Calcium Level 8.6 Total Bilirubin 0.4 Direct Bilirubin 0.00 Indirect Bilirubin 0.4 Aspartate Amino Transf (AST/SGOT) 25 Alanine Aminotransferase (ALT/SGPT) 27 Alkaline Phosphatase 77 Total Protein 7.2 Albumin 4.0 Globulin 3.20 Albumin/Globulin Ratio 1.25 Test 01/16/17 09:48 Bedside Glucose 150 Medications Medications Current Medications Ondansetron HCl (Zofran Inj) 4 mg Q6H PRN IV NAUSEA AND/OR VOMITING Last administered on 12/13/16 01:13; Admin Dose 4 MG; Start 12/02/16 at 22:30 Miscellaneous Information 1 ea NOTE XX ; Start 12/02/16 at 23:00 Glucose (Glutose) 15 gm Q15M PRN PO DECREASED GLUCOSE; Start 12/02/16 at 23:00 Glucose (Glutose) 22.5 gm Q15M PRN PO DECREASED GLUCOSE; Start 12/02/16 at 23: 00 Dextrose (D50w Syringe) 25 ml Q15M PRN IV DECREASED GLUCOSE Last administered on 12/10/16 05:52; Admin Dose 25 ML; Start 12/02/16 at 23:00 Dextrose (D50w Syringe) 50 ml Q15M PRN IV DECREASED GLUCOSE; Start 12/02/16 at 23:00 Glucagon (Glucagen) 1 mg Q15M PRN IM DECREASED GLUCOSE; Start 12/02/16 at 23:00 Glucose (Glutose) 15 gm Q15M PRN BUCCAL DECREASED GLUCOSE; Start 12/02/16 at 23 :00 Gabapentin (Neurontin) 800 mg TID PO Last administered on 12/08/16 20:33; Admin Dose 800 MG; Start 12/03/16 at 09:00; Status Future Hold Benazepril HCl (Lotensin) 10 mg DAILY PO Last administered on 12/07/16 08:26; Admin Dose 10 MG; Start 12/04/16 at 09:00; Status Future Hold Acetaminophen (Tylenol Supp) 650 mg Q6H PRN [place] ELEVATED TEMPERATURE Last administered on 01/13/17 20:32; Admin Dose 650 MG; Start 12/09/16 at 17:00 Hydralazine HCl (Apresoline) 10 mg Q6H PRN IV SBP>150mm hg Last administered on 12/19/16 08:50; Admin Dose 10 MG; Start 12/11/16 at 10:30 Morphine Sulfate (morphine) 2 mg Q2H PRN IV PAIN LEVEL 4-7; Start 12/13/16 at 10 :00 Collagenase 1 applic 1 applic DAILY TOP Last administered on 01/15/17 10:15; Admin Dose 1 APPLIC; Start 01/04/17 at 09:00 Propofol 100 ml @ 2.544 mls/ hr Q12H IV Last administered on 01/08/17 04:00; Admin Dose 2.544 MLS/HR; Start 01/08/17 at 04:00 Linezolid (Zyvox 600mg/D5W (Pmx)) 300 ml @ 300 mls/hr Q12 IVPB Last administered on 01/16/17 10:27; Admin Dose 300 MLS/HR; Start 01/08/17 at 18:00 Insulin Aspart (Novolog Insulin Pen) NOVOLOG *MODERATE* ALGORI... Q4 SC Last administered on 01/16/17 09:50; Admin Dose 2 UNIT; Start 01/09/17 at 14:15 Diagnostic Test (Pha) 1 ea 1 ea 02 XX Last administered on 01/16/17 02:00; Admin Dose 1 EA; Start 01/10/17 at 02:00 Caspofungin/ Sodium Chloride (Cancidas/NS) 250 ml @ 250 mls/hr Q24H IVPB Last administered on 01/15/17 10:15; Admin Dose 250 MLS/HR; Start 01/13/17 at 09:30 Metoprolol Tartrate (Lopressor) 5 mg Q4 PRN IV FOR H.R>110; Start 01/12/17 at 17:30 Acetaminophen (Tylenol Liquid) 650 mg Q6H PRN NGT PAIN AND OR ELEVATED TEMP; Start 01/13/17 at 23:30 Amiodarone HCl (Cordarone) 200 mg BID NGT Last administered on 01/16/17 09:45; Admin Dose 200 MG; Start 01/13/17 at 21:00 Apixaban (Eliquis) 2.5 mg BID NGT Last administered on 01/16/17 09:44; Admin Dose 2.5 MG; Start 01/13/17 at 21:00 Acetaminophen/ Hydrocodone Bitart ([place] (5/325)) 1 tab Q6H PRN NGT PAIN LEVEL 4-7; Start 01/13/17 at 23:30 Levetiracetam (Keppra Liquid) 1,000 mg DAILY NGT Last administered on 01/16/17 09:44; Admin Dose 1,000 MG; Start 01/14/17 at 09:00 Meclizine HCl (Antivert) 25 mg TID PRN NGT dizziness; Start 01/13/17 at 20:00 Metoprolol Tartrate (Lopressor) 50 mg BID NGT Last administered on 01/16/17 10: 28; Admin Dose 50 MG; Start 01/13/17 at 21:00 Zolpidem Tartrate (Ambien) 5 mg HS PRN NGT INSOMNIA; Start 01/13/17 at 20:00 Aspirin (Aspirin) 81 mg DAILY NGT Last administered on 01/16/17 09:44; Admin Dose 81 MG; Start 01/14/17 at 09:00 Docusate Sodium (Colace Liquid Cup) 100 mg BID NGT Last administered on 09:44; Admin Dose 100 MG; Start 01/13/17 at 21:00 Pantoprazole (Protonix Iv) 40 mg DAILY@06 IV Last administered on 01/16/17 05: 04; Admin Dose 40 MG; Start 01/14/17 at 06:00 Insulin Glargine (Lantus) 34 unit DAILY@20 SC Last administered on 01/15/17 19: 55; Admin Dose 34 UNIT; Start 01/14/17 at 20:00 Insulin Aspart 5 unit 5 unit BID SC Last administered on 01/16/17 09:49; Admin Dose 5 UNIT; Start 01/15/17 at 21:00 Cefepime HCl (Maxipime 1gm/50 ml (Pmx)) 50 ml @ 100 mls/hr DAILY IVPB Last administered on 01/16/17 09:44; Admin Dose 100 MLS/HR; Start 01/15/17 at 20:00 CHRISTY LOPEZ M.D. Jan 16, 2017 11:05
--- NOTE | 2017-01-16 11:21 | RADRPT ---
PROCEDURE: Ultrasound chest CLINICAL INDICATION: Pleural effusions. TECHNIQUE: Focused ultrasound to the bilateral lower thoraces is performed. COMPARISON: None FINDINGS: There is a small right pleural effusion seen. There is no significant left pleural effusion identif ied. IMPRESSION: Small right pleural effusion. RPTAT: QQ .Clint Villafana MD, MD Date Time Electronically viewed and signed by .Clint Villafana MD, MD on 01/16/2017 11:21 .L/
--- NOTE | 2017-01-16 11:23 | CONS ---
Date/Time of Note Date/Time of Note DATE: 01/16/17 TIME: 11:21 Assessment/Plan Assessment/Plan Additional Assessment/Plan Chest x-ray was reviewed from late yesterday morning which is totally clear now. Endotracheal tube is at an adequate level. Ventilator setting; AC of 16, tidal volume 500, PEEP of 5, 30% FiO2. Assessment recommendations; 1. Patient admitted for cellulitis of the lower extremity status post antibiotic treatment with resulting renal failure on hemodialysis. 2. Recurrent respiratory failure likely from underlying cardiomyopathy causing flash pulmonary edema. 3. Likely anoxic brain injury from CPR. 4. Bilateral pleural effusions with marked radiological improvement from yesterday. 5. History of hypertension or diabetes. Continue current treatment. Consider stopping antibiotics. Prognosis is poor. Consultation Date/Type/Reason Admit Date/Time Dec 02, 2016 at 21:01 Initial Consult Date 12/03/16 Type of Consultation: Pulmonary/critical care Referring Provider: VIET PARKER MD 24 HR Interval Summary Free Text/Dictation Patient condition remains critical. Patient remains awake but unresponsive. Has remained hemodynamically stable. General exam; elderly male, awake, orally intubated. Currently in no distress. Exam/Review of Systems Vital Signs Vitals Vital Signs Date Time Temp Pulse Resp B/P Pulse Ox O2 Delivery O2 Flow Rate FiO2 01/16/17 11:00 78 18 99/61 100 Mechanical Ventilator 01/16/17 08:30 30 01/16/17 08:00 99.4 Intake and Output 01/15/17 01/15/17 01/16/17 15:00 23:00 07:00 Intake Total 950 ml 630 ml 340 ml Output Total 1 ml 225 ml Balance 950 ml 629 ml 115 ml Exam HEENT exam is; supple neck, no JVD. No lymphadenopathy. Midline trachea. No thyromegaly. Patient is edentulous. Orally intubated. Pupils are midsize and reactive to light bilaterally. Chest examination; clear to ulceration. S1-S2 audible, no murmurs. Regular rhythm. Abdomen examination; soft, nondistended. No organomegaly. Bowel sounds audible. Extremity examination; no peripheral edema. Pulses 1+ bilaterally. [employer]EL[employer] examination; patient is awake but unresponsive to any commands. Results Result Diagram: 01/16/17 0425 01/16/17 0425 Results 24 hrs Laboratory Tests Test 01/15/17 13:30 01/15/17 15:02 01/15/17 17:29 01/15/17 19:50 Bedside Glucose 301 H 214 207 229 H Test 01/15/17 20:37 01/16/17 01:15 01/16/17 04:25 01/16/17 05:02 Bedside Glucose 202 220 155 White Blood Count 11.7 H Red Blood Count 3.24 L Hemoglobin 9.7 L Hematocrit 30.7 L Mean Corpuscular Volume 94.8 Mean Corpuscular Hemoglobin 29.9 Mean Corpuscular Hemoglobin Concent 31.6 L Red Cell Distribution Width 13.2 Platelet Count 178 Mean Platelet Volume 10.7 H Neutrophils % 79.5 H Lymphocytes % 11.3 L Monocytes % 8.3 Eosinophils % 0.2 Basophils % 0.1 Nucleated Red Blood Cells % 0.0 Neutrophils # 9.3 H Lymphocytes # 1.3 Monocytes # 1.0 H Eosinophils # 0.0 Basophils # 0.0 Nucleated Red Blood Cells # 0.0 Sodium Level 146 H Potassium Level 4.4 Chloride Level 105 Carbon Dioxide Level 28 Anion Gap 17 H Blood Urea Nitrogen 64 H Creatinine 2.88 H Glucose Level 167 Calcium Level 8.6 Total Bilirubin 0.4 Direct Bilirubin 0.00 Indirect Bilirubin 0.4 Aspartate Amino Transf (AST/SGOT) 25 Alanine Aminotransferase (ALT/SGPT) 27 Alkaline Phosphatase 77 Total Protein 7.2 Albumin 4.0 Globulin 3.20 Albumin/Globulin Ratio 1.25 Test 01/16/17 09:48 Bedside Glucose 150 Medications Medications Current Medications Ondansetron HCl (Zofran Inj) 4 mg Q6H PRN IV NAUSEA AND/OR VOMITING Last administered on 12/13/16 01:13; Admin Dose 4 MG; Start 12/02/16 at 22:30 Miscellaneous Information 1 ea NOTE XX ; Start 12/02/16 at 23:00 Glucose (Glutose) 15 gm Q15M PRN PO DECREASED GLUCOSE; Start 12/02/16 at 23:00 Glucose (Glutose) 22.5 gm Q15M PRN PO DECREASED GLUCOSE; Start 12/02/16 at 23: 00 Dextrose (D50w Syringe) 25 ml Q15M PRN IV DECREASED GLUCOSE Last administered on 12/10/16 05:52; Admin Dose 25 ML; Start 12/02/16 at 23:00 Dextrose (D50w Syringe) 50 ml Q15M PRN IV DECREASED GLUCOSE; Start 12/02/16 at 23:00 Glucagon (Glucagen) 1 mg Q15M PRN IM DECREASED GLUCOSE; Start 12/02/16 at 23:00 Glucose (Glutose) 15 gm Q15M PRN BUCCAL DECREASED GLUCOSE; Start 12/02/16 at 23 :00 Gabapentin (Neurontin) 800 mg TID PO Last administered on 12/08/16 20:33; Admin Dose 800 MG; Start 12/03/16 at 09:00; Status Future Hold Benazepril HCl (Lotensin) 10 mg DAILY PO Last administered on 12/07/16 08:26; Admin Dose 10 MG; Start 12/04/16 at 09:00; Status Future Hold Acetaminophen (Tylenol Supp) 650 mg Q6H PRN [place] ELEVATED TEMPERATURE Last administered on 01/13/17 20:32; Admin Dose 650 MG; Start 12/09/16 at 17:00 Hydralazine HCl (Apresoline) 10 mg Q6H PRN IV SBP>150mm hg Last administered on 12/19/16 08:50; Admin Dose 10 MG; Start 12/11/16 at 10:30 Morphine Sulfate (morphine) 2 mg Q2H PRN IV PAIN LEVEL 4-7; Start 12/13/16 at 10 :00 Collagenase 1 applic 1 applic DAILY TOP Last administered on 01/15/17 10:15; Admin Dose 1 APPLIC; Start 01/04/17 at 09:00 Propofol 100 ml @ 2.544 mls/ hr Q12H IV Last administered on 01/08/17 04:00; Admin Dose 2.544 MLS/HR; Start 01/08/17 at 04:00 Linezolid (Zyvox 600mg/D5W (Pmx)) 300 ml @ 300 mls/hr Q12 IVPB Last administered on 01/16/17 10:27; Admin Dose 300 MLS/HR; Start 01/08/17 at 18:00 Insulin Aspart (Novolog Insulin Pen) NOVOLOG *MODERATE* ALGORI... Q4 SC Last administered on 01/16/17 09:50; Admin Dose 2 UNIT; Start 01/09/17 at 14:15 Diagnostic Test (Pha) 1 ea 1 ea 02 XX Last administered on 01/16/17 02:00; Admin Dose 1 EA; Start 01/10/17 at 02:00 Caspofungin/ Sodium Chloride (Cancidas/NS) 250 ml @ 250 mls/hr Q24H IVPB Last administered on 01/15/17 10:15; Admin Dose 250 MLS/HR; Start 01/13/17 at 09:30 Metoprolol Tartrate (Lopressor) 5 mg Q4 PRN IV FOR H.R>110; Start 01/12/17 at 17:30 Acetaminophen (Tylenol Liquid) 650 mg Q6H PRN NGT PAIN AND [place] ELEVATED TEMP; Start 01/13/17 at 23:30 Amiodarone HCl (Cordarone) 200 mg BID NGT Last administered on 01/16/17 09:45; Admin Dose 200 MG; Start 01/13/17 at 21:00 Apixaban (Eliquis) 2.5 mg BID NGT Last administered on 01/16/17 09:44; Admin Dose 2.5 MG; Start 01/13/17 at 21:00 Acetaminophen/ Hydrocodone Bitart ([place] (5/325)) 1 tab Q6H PRN NGT PAIN LEVEL 4-7; Start 01/13/17 at 23:30 Levetiracetam (Keppra Liquid) 1,000 mg DAILY NGT Last administered on 01/16/17 09:44; Admin Dose 1,000 MG; Start 01/14/17 at 09:00 Meclizine HCl (Antivert) 25 mg TID PRN NGT dizziness; Start 01/13/17 at 20:00 Metoprolol Tartrate (Lopressor) 50 mg BID NGT Last administered on 01/15/17 20: 41; Admin Dose 50 MG; Start 01/13/17 at 21:00 Zolpidem Tartrate (Ambien) 5 mg HS PRN NGT INSOMNIA; Start 01/13/17 at 20:00 Aspirin (Aspirin) 81 mg DAILY NGT Last administered on 01/16/17 09:44; Admin Dose 81 MG; Start 01/14/17 at 09:00 Docusate Sodium (Colace Liquid Cup) 100 mg BID NGT Last administered on 09:44; Admin Dose 100 MG; Start 01/13/17 at 21:00 Pantoprazole (Protonix Iv) 40 mg DAILY@06 IV Last administered on 01/16/17 05: 04; Admin Dose 40 MG; Start 01/14/17 at 06:00 Insulin Glargine (Lantus) 34 unit DAILY@20 SC Last administered on 01/15/17 19: 55; Admin Dose 34 UNIT; Start 01/14/17 at 20:00 Insulin Aspart 5 unit 5 unit BID SC Last administered on 01/16/17 09:49; Admin Dose 5 UNIT; Start 01/15/17 at 21:00 Cefepime HCl (Maxipime 1gm/50 ml (Pmx)) 50 ml @ 100 mls/hr DAILY IVPB Last administered on 01/16/17 09:44; Admin Dose 100 MLS/HR; Start 01/15/17 at 20:00 IKE MULLER Jan 16, 2017 11:23
[2017-01-16] MEDS: CASPOFUNGIN 50 MG in SOD CHLORIDE 0.9% 250 ML IVPB SCH (11:26)
--- NOTE | 2017-01-16 11:35 | PN ---
Date/Time of Note Date/Time of Note DATE: 01/16/17 TIME: 11:32 Assessment/Plan VTE Prophylaxis VTE Prophylaxis Intervention: other Lines/Catheters IV C[facility]ter Type (from [email or web address] Peripheral IV Urinary Cath still in place: No Assessment/Plan Assessment/Plan 1. Hypernatremia - per bow rehairer 1. Status post cardiopulmonary arrest on 12/09/2016 and 01/08/2017. Continue ICU care, ventilatory support. 2. Anoxic encephalopathy. Dr. Villa is following in neurology consultation. The patient started on Keppra due to epileptiform activity on EEG 3. Acute kidney injury secondary to acute tubular necrosis. Continue hemodialysis. 4. Diabetes mellitus type 2. We will increase Lantus, continue NovoLog per sliding scale with q.4h. Accu-Chek. 5. Paroxysmal atrial fibrillation. Continue aspirin and Eliquis. Dr. Cobian is following the patient in cardiology consultation. 6. Peripheral arterial disease. 7. Diabetic foot ulcer. 8. Osteomyelitis of the distal phalanx of the left great toe and left proximal phalanx. Continue antibiotics per infectious disease. Dr. Moses is following in infectious disease consultation. 9. Possible pneumonia. 10. Hyperglycemia- possibly due to zyvox is given in d5w- willl give Noolog insulin 5 units SQ q12 hrs, lantus increased to 38 units sq daily We will continue Protonix for peptic ulcer disease prophylaxis. Further recommendations based on clinical course. Plan of care discussed with Dr. Heredia Subjective 24 Hr Interval Summary Free Text/Dictation remains intubated, unresponsive, afebrile, hyperglycemia noted- change Lantus to 38 units sq daily. dw staff Subjective hx not possible: pt non-verbal, pt critical Constitutional: requiring IVF, requiring O2 Exam/Review of Systems Vital Signs Vitals Vital Signs Date Time Temp Pulse Resp B/P Pulse Ox O2 Delivery O2 Flow Rate FiO2 01/16/17 11:00 78 18 99/61 100 Mechanical Ventilator 01/16/17 08:30 30 01/16/17 08:00 99.4 Intake and Output 01/15/17 01/15/17 01/16/17 15:00 23:00 07:00 Intake Total 950 ml 630 ml 340 ml Output Total 1 ml 225 ml Balance 950 ml 629 ml 115 ml Exam Constitutional: frail, non-verbal Respiratory: diminished breath sounds Cardiovascular: nl pulses, regular rate and rhythm Gastrointestinal: other, soft Musculoskeletal: other Extremities: normal pulses Neurological: unresponsive Lymph: other Results Result Diagram: 01/16/17 0425 01/16/17 0425 Results 24 hrs Laboratory Tests Test 01/15/17 13:30 01/15/17 15:02 01/15/17 17:29 01/15/17 19:50 Bedside Glucose 301 H 214 207 229 H Test 01/15/17 20:37 01/16/17 01:15 01/16/17 04:25 01/16/17 05:02 Bedside Glucose 202 220 155 White Blood Count 11.7 H Red Blood Count 3.24 L Hemoglobin 9.7 L Hematocrit 30.7 L Mean Corpuscular Volume 94.8 Mean Corpuscular Hemoglobin 29.9 Mean Corpuscular Hemoglobin Concent 31.6 L Red Cell Distribution Width 13.2 Platelet Count 178 Mean Platelet Volume 10.7 H Neutrophils % 79.5 H Lymphocytes % 11.3 L Monocytes % 8.3 Eosinophils % 0.2 Basophils % 0.1 Nucleated Red Blood Cells % 0.0 Neutrophils # 9.3 H Lymphocytes # 1.3 Monocytes # 1.0 H Eosinophils # 0.0 Basophils # 0.0 Nucleated Red Blood Cells # 0.0 Sodium Level 146 H Potassium Level 4.4 Chloride Level 105 Carbon Dioxide Level 28 Anion Gap 17 H Blood Urea Nitrogen 64 H Creatinine 2.88 H Glucose Level 167 Calcium Level 8.6 Total Bilirubin 0.4 Direct Bilirubin 0.00 Indirect Bilirubin 0.4 Aspartate Amino Transf (AST/SGOT) 25 Alanine Aminotransferase (ALT/SGPT) 27 Alkaline Phosphatase 77 Total Protein 7.2 Albumin 4.0 Globulin 3.20 Albumin/Globulin Ratio 1.25 Test 01/16/17 09:48 Bedside Glucose 150 Medications Medications Current Medications Ondansetron HCl (Zofran Inj) 4 mg Q6H PRN IV NAUSEA AND/OR VOMITING Last administered on 12/13/16 01:13; Admin Dose 4 MG; Start 12/02/16 at 22:30 Miscellaneous Information 1 ea NOTE XX ; Start 12/02/16 at 23:00 Glucose (Glutose) 15 gm Q15M PRN PO DECREASED GLUCOSE; Start 12/02/16 at 23:00 Glucose (Glutose) 22.5 gm Q15M PRN PO DECREASED GLUCOSE; Start 12/02/16 at 23: 00 Dextrose (D50w Syringe) 25 ml Q15M PRN IV DECREASED GLUCOSE Last administered on 12/10/16 05:52; Admin Dose 25 ML; Start 12/02/16 at 23:00 Dextrose (D50w Syringe) 50 ml Q15M PRN IV DECREASED GLUCOSE; Start 12/02/16 at 23:00 Glucagon (Glucagen) 1 mg Q15M PRN IM DECREASED GLUCOSE; Start 12/02/16 at 23:00 Glucose (Glutose) 15 gm Q15M PRN BUCCAL DECREASED GLUCOSE; Start 12/02/16 at 23 :00 Gabapentin (Neurontin) 800 mg TID PO Last administered on 12/08/16 20:33; Admin Dose 800 MG; Start 12/03/16 at 09:00; Status Future Hold Benazepril HCl (Lotensin) 10 mg DAILY PO Last administered on 12/07/16 08:26; Admin Dose 10 MG; Start 12/04/16 at 09:00; Status Future Hold Acetaminophen (Tylenol Supp) 650 mg Q6H PRN [place] ELEVATED TEMPERATURE Last administered on 01/13/17 20:32; Admin Dose 650 MG; Start 12/09/16 at 17:00 Hydralazine HCl (Apresoline) 10 mg Q6H PRN IV SBP>150mm hg Last administered on 12/19/16 08:50; Admin Dose 10 MG; Start 12/11/16 at 10:30 Morphine Sulfate (morphine) 2 mg Q2H PRN IV PAIN LEVEL 4-7; Start 12/13/16 at 10 :00 Collagenase 1 applic 1 applic DAILY TOP Last administered on 01/15/17 10:15; Admin Dose 1 APPLIC; Start 01/04/17 at 09:00 Propofol 100 ml @ 2.544 mls/ hr Q12H IV Last administered on 01/08/17 04:00; Admin Dose 2.544 MLS/HR; Start 01/08/17 at 04:00 Linezolid (Zyvox 600mg/D5W (Pmx)) 300 ml @ 300 mls/hr Q12 IVPB Last administered on 01/16/17 10:27; Admin Dose 300 MLS/HR; Start 01/08/17 at 18:00 Insulin Aspart (Novolog Insulin Pen) NOVOLOG *MODERATE* ALGORI... Q4 SC Last administered on 01/16/17 09:50; Admin Dose 2 UNIT; Start 01/09/17 at 14:15 Diagnostic Test (Pha) 1 ea 1 ea 02 XX Last administered on 01/16/17 02:00; Admin Dose 1 EA; Start 01/10/17 at 02:00 Caspofungin/ Sodium Chloride (Cancidas/NS) 250 ml @ 250 mls/hr Q24H IVPB Last administered on 01/16/17 11:26; Admin Dose 250 MLS/HR; Start 01/13/17 at 09:30 Metoprolol Tartrate (Lopressor) 5 mg Q4 PRN IV FOR H.R>110; Start 01/12/17 at 17:30 Acetaminophen (Tylenol Liquid) 650 mg Q6H PRN NGT PAIN AND OR ELEVATED TEMP; Start 01/13/17 at 23:30 Amiodarone HCl (Cordarone) 200 mg BID NGT Last administered on 01/16/17 09:45; Admin Dose 200 MG; Start 01/13/17 at 21:00 Apixaban (Eliquis) 2.5 mg BID NGT Last administered on 01/16/17 09:44; Admin Dose 2.5 MG; Start 01/13/17 at 21:00 Acetaminophen/ Hydrocodone Bitart ([place] (5/325)) 1 tab Q6H PRN NGT PAIN LEVEL 4-7; Start 01/13/17 at 23:30 Levetiracetam (Keppra Liquid) 1,000 mg DAILY NGT Last administered on 01/16/17 09:44; Admin Dose 1,000 MG; Start 01/14/17 at 09:00 Meclizine HCl (Antivert) 25 mg TID PRN NGT dizziness; Start 01/13/17 at 20:00 Metoprolol Tartrate (Lopressor) 50 mg BID NGT Last administered on 01/15/17 20: 41; Admin Dose 50 MG; Start 01/13/17 at 21:00 Zolpidem Tartrate (Ambien) 5 mg HS PRN NGT INSOMNIA; Start 01/13/17 at 20:00 Aspirin (Aspirin) 81 mg DAILY NGT Last administered on 01/16/17 09:44; Admin Dose 81 MG; Start 01/14/17 at 09:00 Docusate Sodium (Colace Liquid Cup) 100 mg BID NGT Last administered on 09:44; Admin Dose 100 MG; Start 01/13/17 at 21:00 Pantoprazole (Protonix Iv) 40 mg DAILY@06 IV Last administered on 01/16/17 05: 04; Admin Dose 40 MG; Start 01/14/17 at 06:00 Insulin Glargine (Lantus) 34 unit DAILY@20 SC Last administered on 01/15/17 19: 55; Admin Dose 34 UNIT; Start 01/14/17 at 20:00 Insulin Aspart 5 unit 5 unit BID SC Last administered on 01/16/17 09:49; Admin Dose 5 UNIT; Start 01/15/17 at 21:00 Cefepime HCl (Maxipime 1gm/50 ml (Pmx)) 50 ml @ 100 mls/hr DAILY IVPB Last administered on 01/16/17 09:44; Admin Dose 100 MLS/HR; Start 01/15/17 at 20:00 YULIANA SIMMONS Jan 16, 2017 11:35
--- NOTE | 2017-01-16 14:23 | CONS ---
Date/Time of Note Date/Time of Note DATE: 01/16/17 TIME: 14:22 Assessment/Plan Assessment/Plan Chief Complaint/Hosp Course Cardiorespiratory arrest with encephalopathy Problems: Additional Assessment/Plan 66 year old male with prolonged hospitalization initially for cellulitis, OM, ARF requiring HD s/p cardiac arrest on 12/09 and again on 01/08 with suspected anoxic brain injury. Head CT on 01/10 shows mild white matter disease consistent with chronic small vessel ischemic changes. EEG shows burst suppression pattern with epileptiform activity, Keppra initiated per dialysis dosing. Recommendations: -burst suppression pattern is generally associated with a poor prognosis for meaningful neurologic recovery -continue on Keppra 1 gram daily and additional 500 mg dose after each dialysis for dialysis dosing -continue supportive care and goals of care discussion with family -Repeat EEG in a.m. -We will follow as needed Consultation Date/Type/Reason Admit Date/Time Dec 02, 2016 at 21:01 Initial Consult Date 12/08/16 Type of Consultation: Pulmonary/critical care Referring Provider: VIET PARKER MD 24 HR Interval Summary Free Text/Dictation Clinically unchanged Exam/Review of Systems Vital Signs Vitals Vital Signs Date Time Temp Pulse Resp B/P Pulse Ox O2 Delivery O2 Flow Rate FiO2 01/16/17 13:00 80 17 118/42 100 Mechanical Ventilator 01/16/17 12:00 99.5 01/16/17 08:30 30 Intake and Output 01/15/17 01/15/17 01/16/17 15:00 23:00 07:00 Intake Total 950 ml 630 ml 340 ml Output Total 1 ml 225 ml Balance 950 ml 629 ml 115 ml Exam Constitutional: non-verbal Head: atraumatic, normocephalic Eyes: nl conjunctiva, nl lids, nl sclera ENMT: mucosa pink and moist, nl external ears & nose, nl lips & teeth, nl nasal mucosa & septum Neck: non-tender, supple Respiratory: clear to auscultation, normal air movement Cardiovascular: nl pulses, regular rate and rhythm Gastrointestinal: nl liver, spleen, soft Neurological: other (Intubated, mechanically ventilated, nonverbal and nonresponsive, corneal reflexes are sluggish, gag reflex is absent, no withdrawal to noxious stimulus) Results Result Diagram: 01/16/17 0425 01/16/17 0425 Results 24 hrs Laboratory Tests Test 01/15/17 15:02 01/15/17 17:29 01/15/17 19:50 01/15/17 20:37 Bedside Glucose 214 207 229 H 202 Test 01/16/17 01:15 01/16/17 04:25 01/16/17 05:02 01/16/17 09:48 Bedside Glucose 220 155 150 White Blood Count 11.7 H Red Blood Count 3.24 L Hemoglobin 9.7 L Hematocrit 30.7 L Mean Corpuscular Volume 94.8 Mean Corpuscular Hemoglobin 29.9 Mean Corpuscular Hemoglobin Concent 31.6 L Red Cell Distribution Width 13.2 Platelet Count 178 Mean Platelet Volume 10.7 H Neutrophils % 79.5 H Lymphocytes % 11.3 L Monocytes % 8.3 Eosinophils % 0.2 Basophils % 0.1 Nucleated Red Blood Cells % 0.0 Neutrophils # 9.3 H Lymphocytes # 1.3 Monocytes # 1.0 H Eosinophils # 0.0 Basophils # 0.0 Nucleated Red Blood Cells # 0.0 Sodium Level 146 H Potassium Level 4.4 Chloride Level 105 Carbon Dioxide Level 28 Anion Gap 17 H Blood Urea Nitrogen 64 H Creatinine 2.88 H Glucose Level 167 Calcium Level 8.6 Total Bilirubin 0.4 Direct Bilirubin 0.00 Indirect Bilirubin 0.4 Aspartate Amino Transf (AST/SGOT) 25 Alanine Aminotransferase (ALT/SGPT) 27 Alkaline Phosphatase 77 Total Protein 7.2 Albumin 4.0 Globulin 3.20 Albumin/Globulin Ratio 1.25 Test 01/16/17 13:14 Bedside Glucose 184 Medications Medications Current Medications Ondansetron HCl (Zofran Inj) 4 mg Q6H PRN IV NAUSEA AND/OR VOMITING Last administered on 12/13/16 01:13; Admin Dose 4 MG; Start 12/02/16 at 22:30 Miscellaneous Information 1 ea NOTE XX ; Start 12/02/16 at 23:00 Glucose (Glutose) 15 gm Q15M PRN PO DECREASED GLUCOSE; Start 12/02/16 at 23:00 Glucose (Glutose) 22.5 gm Q15M PRN PO DECREASED GLUCOSE; Start 12/02/16 at 23: 00 Dextrose (D50w Syringe) 25 ml Q15M PRN IV DECREASED GLUCOSE Last administered on 12/10/16 05:52; Admin Dose 25 ML; Start 12/02/16 at 23:00 Dextrose (D50w Syringe) 50 ml Q15M PRN IV DECREASED GLUCOSE; Start 12/02/16 at 23:00 Glucagon (Glucagen) 1 mg Q15M PRN IM DECREASED GLUCOSE; Start 12/02/16 at 23:00 Glucose (Glutose) 15 gm Q15M PRN BUCCAL DECREASED GLUCOSE; Start 12/02/16 at 23 :00 Gabapentin (Neurontin) 800 mg TID PO Last administered on 12/08/16 20:33; Admin Dose 800 MG; Start 12/03/16 at 09:00; Status Future Hold Benazepril HCl (Lotensin) 10 mg DAILY PO Last administered on 12/07/16 08:26; Admin Dose 10 MG; Start 12/04/16 at 09:00; Status Future Hold Acetaminophen (Tylenol Supp) 650 mg Q6H PRN [place] ELEVATED TEMPERATURE Last administered on 01/13/17 20:32; Admin Dose 650 MG; Start 12/09/16 at 17:00 Hydralazine HCl (Apresoline) 10 mg Q6H PRN IV SBP>150mm hg Last administered on 12/19/16 08:50; Admin Dose 10 MG; Start 12/11/16 at 10:30 Morphine Sulfate (morphine) 2 mg Q2H PRN IV PAIN LEVEL 4-7; Start 12/13/16 at 10 :00 Collagenase 1 applic 1 applic DAILY TOP Last administered on 01/16/17 10:30; Admin Dose 1 APPLIC; Start 01/04/17 at 09:00 Linezolid (Zyvox 600mg/D5W (Pmx)) 300 ml @ 300 mls/hr Q12 IVPB Last administered on 01/16/17 10:27; Admin Dose 300 MLS/HR; Start 01/08/17 at 18:00 Insulin Aspart (Novolog Insulin Pen) NOVOLOG *MODERATE* ALGORI... Q4 SC Last administered on 01/16/17 13:16; Admin Dose 4 UNIT; Start 01/09/17 at 14:15 Diagnostic Test (Pha) 1 ea 1 ea 02 XX Last administered on 01/16/17 02:00; Admin Dose 1 EA; Start 01/10/17 at 02:00 Caspofungin/ Sodium Chloride (Cancidas/NS) 250 ml @ 250 mls/hr Q24H IVPB Last administered on 01/16/17 11:26; Admin Dose 250 MLS/HR; Start 01/13/17 at 09:30 Metoprolol Tartrate (Lopressor) 5 mg Q4 PRN IV FOR H.R>110; Start 01/12/17 at 17:30 Acetaminophen (Tylenol Liquid) 650 mg Q6H PRN NGT PAIN AND OR ELEVATED TEMP; Start 01/13/17 at 23:30 Amiodarone HCl (Cordarone) 200 mg BID NGT Last administered on 01/16/17 09:45; Admin Dose 200 MG; Start 01/13/17 at 21:00 Apixaban (Eliquis) 2.5 mg BID NGT Last administered on 01/16/17 09:44; Admin Dose 2.5 MG; Start 01/13/17 at 21:00 Acetaminophen/ Hydrocodone Bitart ([place] (5/325)) 1 tab Q6H PRN NGT PAIN LEVEL 4-7; Start 01/13/17 at 23:30 Levetiracetam (Keppra Liquid) 1,000 mg DAILY NGT Last administered on 01/16/17 09:44; Admin Dose 1,000 MG; Start 01/14/17 at 09:00 Meclizine HCl (Antivert) 25 mg TID PRN NGT dizziness; Start 01/13/17 at 20:00 Metoprolol Tartrate (Lopressor) 50 mg BID NGT Last administered on 01/15/17 20: 41; Admin Dose 50 MG; Start 01/13/17 at 21:00 Zolpidem Tartrate (Ambien) 5 mg HS PRN NGT INSOMNIA; Start 01/13/17 at 20:00 Aspirin (Aspirin) 81 mg DAILY NGT Last administered on 01/16/17 09:44; Admin Dose 81 MG; Start 01/14/17 at 09:00 Docusate Sodium (Colace Liquid Cup) 100 mg BID NGT Last administered on 09:44; Admin Dose 100 MG; Start 01/13/17 at 21:00 Pantoprazole (Protonix Iv) 40 mg DAILY@06 IV Last administered on 01/16/17 05: 04; Admin Dose 40 MG; Start 01/14/17 at 06:00 Insulin Aspart 5 unit 5 unit BID SC Last administered on 01/16/17 09:49; Admin Dose 5 UNIT; Start 01/15/17 at 21:00 Cefepime HCl (Maxipime 1gm/50 ml (Pmx)) 50 ml @ 100 mls/hr DAILY IVPB Last administered on 01/16/17 09:44; Admin Dose 100 MLS/HR; Start 01/15/17 at 20:00 Insulin Glargine (Lantus) 38 unit DAILY@20 SC ; Start 01/16/17 at 20:00 DAVON DIXON MD Jan 16, 2017 14:23
--- NOTE | 2017-01-16 15:49 | CONS ---
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 Blood cultures from HD catheter on 12/13/2016 are negative to date. 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 MRI on 12/06/2016 and bone scan on showed 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 and left fourth proximal phalanx. superficial swab grew inna only - s/p right pleural effusion s/p thoracentesis with .9L removed on 12/16/2016 - severe , EF 40-45% per TTE 12/17/16 - DM - Hgb A1c 8.7% - HTN associated with DM Plan: Plan for HD tomorrow S/p EEG showed epileptiform activity- stared on keppra by Neurology - poor prognosis for meaningful recovery as per Neurology S/P family metting yesterday- Full Code pt has severe , very labile BP sometimes with HD will continue to follow up on patient and continue HD until family makes some decision, D/w with today at bedside with [employer] [employer]- she wants to continue HD as of now Consultation Date/Type/Reason Admit Date/Time Dec 02, 2016 at 21:01 Initial Consult Date Type of Consultation: NEPHROLOGY Referring Provider: VIET PARKER MD 24 HR Interval Summary Free Text/Dictation remains intubated, BP low, Plan for HD tomorrow Exam/Review of Systems Vital Signs Vitals Vital Signs Date Time Temp Pulse Resp B/P Pulse Ox O2 Delivery O2 Flow Rate FiO2 01/16/17 14:00 81 29 109/46 100 Mechanical Ventilator 01/16/17 12:00 99.5 01/16/17 08:30 30 Intake and Output 01/15/17 01/15/17 01/16/17 15:00 23:00 07:00 Intake Total 950 ml 630 ml 340 ml Output Total 1 ml 225 ml Balance 950 ml 629 ml 115 ml Results Result Diagram: 01/16/17 0425 01/16/17 0425 Results 24 hrs Laboratory Tests Test 01/15/17 17:29 01/15/17 19:50 01/15/17 20:37 01/16/17 01:15 Bedside Glucose 207 229 H 202 220 Test 01/16/17 04:25 01/16/17 05:02 01/16/17 09:48 01/16/17 13:14 White Blood Count 11.7 H Red Blood Count 3.24 L Hemoglobin 9.7 L Hematocrit 30.7 L Mean Corpuscular Volume 94.8 Mean Corpuscular Hemoglobin 29.9 Mean Corpuscular Hemoglobin Concent 31.6 L Red Cell Distribution Width 13.2 Platelet Count 178 Mean Platelet Volume 10.7 H Neutrophils % 79.5 H Lymphocytes % 11.3 L Monocytes % 8.3 Eosinophils % 0.2 Basophils % 0.1 Nucleated Red Blood Cells % 0.0 Neutrophils # 9.3 H Lymphocytes # 1.3 Monocytes # 1.0 H Eosinophils # 0.0 Basophils # 0.0 Nucleated Red Blood Cells # 0.0 Sodium Level 146 H Potassium Level 4.4 Chloride Level 105 Carbon Dioxide Level 28 Anion Gap 17 H Blood Urea Nitrogen 64 H Creatinine 2.88 H Glucose Level 167 Calcium Level 8.6 Total Bilirubin 0.4 Direct Bilirubin 0.00 Indirect Bilirubin 0.4 Aspartate Amino Transf (AST/SGOT) 25 Alanine Aminotransferase (ALT/SGPT) 27 Alkaline Phosphatase 77 Total Protein 7.2 Albumin 4.0 Globulin 3.20 Albumin/Globulin Ratio 1.25 Bedside Glucose 155 150 184 Medications Medications Current Medications Ondansetron HCl (Zofran Inj) 4 mg Q6H PRN IV NAUSEA AND/OR VOMITING Last administered on 12/13/16t 01:13; Admin Dose 4 MG; Start 12/02/16 at 22:30 Miscellaneous Information 1 ea NOTE XX ; Start 12/02/16 at 23:00 Glucose (Glutose) 15 gm Q15M PRN PO DECREASED GLUCOSE; Start 12/02/16 at 23:00 Glucose (Glutose) 22.5 gm Q15M PRN PO DECREASED GLUCOSE; Start 12/02/16 at 23: 00 Dextrose (D50w Syringe) 25 ml Q15M PRN IV DECREASED GLUCOSE Last administered on 12/10/16 05:52; Admin Dose 25 ML; Start 12/02/16 at 23:00 Dextrose (D50w Syringe) 50 ml Q15M PRN IV DECREASED GLUCOSE; Start 12/02/16 at 23:00 Glucagon (Glucagen) 1 mg Q15M PRN IM DECREASED GLUCOSE; Start 12/02/16 at 23:00 Glucose (Glutose) 15 gm Q15M PRN BUCCAL DECREASED GLUCOSE; Start 12/02/16 at 23 :00 Gabapentin (Neurontin) 800 mg TID PO Last administered on 12/08/16 20:33; Admin Dose 800 MG; Start 12/03/16 at 09:00; Status Future Hold Benazepril HCl (Lotensin) 10 mg DAILY PO Last administered on 12/07/16 08:26; Admin Dose 10 MG; Start 12/04/16 at 09:00; Status Future Hold Acetaminophen (Tylenol Supp) 650 mg Q6H PRN [place] ELEVATED TEMPERATURE Last administered on 01/13/17 20:32; Admin Dose 650 MG; Start 12/09/16 at 17:00 Hydralazine HCl (Apresoline) 10 mg Q6H PRN IV SBP>150mm hg Last administered on 12/19/16 08:50; Admin Dose 10 MG; Start 12/11/16 at 10:30 Morphine Sulfate (morphine) 2 mg Q2H PRN IV PAIN LEVEL 4-7; Start 12/13/16 at 10 :00 Collagenase 1 applic 1 applic DAILY TOP Last administered on 01/16/17 10:30; Admin Dose 1 APPLIC; Start 01/04/17 at 09:00 Linezolid (Zyvox 600mg/D5W (Pmx)) 300 ml @ 300 mls/hr Q12 IVPB Last administered on 01/16/17 10:27; Admin Dose 300 MLS/HR; Start 01/08/17 at 18:00 Insulin Aspart (Novolog Insulin Pen) NOVOLOG *MODERATE* ALGORI... Q4 SC Last administered on 01/16/17 13:16; Admin Dose 4 UNIT; Start 01/09/17 at 14:15 Diagnostic Test (Pha) 1 ea 1 ea 02 XX Last administered on 01/16/17 02:00; Admin Dose 1 EA; Start 01/10/17 at 02:00 Caspofungin/ Sodium Chloride (Cancidas/NS) 250 ml @ 250 mls/hr Q24H IVPB Last administered on 01/16/17 11:26; Admin Dose 250 MLS/HR; Start 01/13/17 at 09:30 Metoprolol Tartrate (Lopressor) 5 mg Q4 PRN IV FOR H.R>110; Start 01/12/17 at 17:30 Acetaminophen (Tylenol Liquid) 650 mg Q6H PRN NGT PAIN AND [place] ELEVATED TEMP; Start 01/13/17 at 23:30 Amiodarone HCl (Cordarone) 200 mg BID NGT Last administered on 01/16/17 09:45; Admin Dose 200 MG; Start 01/13/17 at 21:00 Apixaban (Eliquis) 2.5 mg BID NGT Last administered on 01/16/17 09:44; Admin Dose 2.5 MG; Start 01/13/17 at 21:00 Acetaminophen/ Hydrocodone Bitart ([place] (5/325)) 1 tab Q6H PRN NGT PAIN LEVEL 4-7; Start 01/13/17 at 23:30 Levetiracetam (Keppra Liquid) 1,000 mg DAILY NGT Last administered on 01/16/17 09:44; Admin Dose 1,000 MG; Start 01/14/17 at 09:00 Meclizine HCl (Antivert) 25 mg TID PRN NGT dizziness; Start 01/13/17 at 20:00 Metoprolol Tartrate (Lopressor) 50 mg BID NGT Last administered on 01/15/17 20: 41; Admin Dose 50 MG; Start 01/13/17 at 21:00 Zolpidem Tartrate (Ambien) 5 mg HS PRN NGT INSOMNIA; Start 01/13/17 at 20:00 Aspirin (Aspirin) 81 mg DAILY NGT Last administered on 01/16/17 09:44; Admin Dose 81 MG; Start 01/14/17 at 09:00 Docusate Sodium (Colace Liquid Cup) 100 mg BID NGT Last administered on 09:44; Admin Dose 100 MG; Start 01/13/17 at 21:00 Pantoprazole (Protonix Iv) 40 mg DAILY@06 IV Last administered on 01/16/17 05: 04; Admin Dose 40 MG; Start 01/14/17 at 06:00 Insulin Aspart 5 unit 5 unit BID SC Last administered on 01/16/17 09:49; Admin Dose 5 UNIT; Start 01/15/17 at 21:00 Cefepime HCl (Maxipime 1gm/50 ml (Pmx)) 50 ml @ 100 mls/hr DAILY IVPB Last administered on 01/16/17 09:44; Admin Dose 100 MLS/HR; Start 01/15/17 at 20:00 Insulin Glargine (Lantus) 38 unit DAILY@20 SC ; Start 01/16/17 at 20:00 TASHIA MCGARRY MD Jan 16, 2017 15:49
[2017-01-16] MEDS ORDERED: INSULIN GLARGINE [LANtus] 3 ML PEN SC SCH (20:00)
[2017-01-17] VITALS (45 sets, daily range): BP systolic 86–131; BP diastolic 38–73; PULSE 58–99; RESP 11–26
[2017-01-17] MEDS: INSULIN ASPART [NOVOLOG] 3 ML PEN SC SCH ×7 (01:27→20:37)
[2017-01-17] MEDS: ALBUTEROL 18 GM INHALER INH SCH ×4 (01:56→19:56)
[2017-01-17] MEDS: ACCU-CHEK XX SCH (02:00)
[2017-01-17 04:52] LABS: ADD SCAN DIFF NO
[2017-01-17 04:55] LABS: BASOPHILS % 0.2 % (0.0-2.0); EOSINOPHILS % 0.3 % (0.0-7.0); HEMATOCRIT 29.6 % (42.0-52.0); HEMOGLOBIN 9.5 g/dl (14.0-18.0); LYMPHOCYTES # 1.2 10^3/ul (0.8-2.9); LYMPHOCYTES % 11.8 % (15.0-51.0); MEAN CORPUSCULAR HEMOGLOBIN 30.4 pg (29.0-33.0); MEAN CORPUSCULAR HGB CONC 32.1 g/dl (32.0-37.0); MEAN CORPUSCULAR VOLUME 94.9 fl (82.0-101.0); MEAN PLATELET VOLUME 10.9 fl (7.4-10.4); MONOCYTE # 0.9 10^3/ul (0.3-0.9); MONOCYTES % 8.4 % (0.0-11.0); NEUTROPHILS % 78.5 % (39.0-77.0); PLATELET COUNT 182 10^3/UL (140-415); RED BLOOD COUNT 3.12 10^6/ul (4.70-6.10); RED CELL DISTRIBUTION WIDTH 13.2 % (11.5-14.5); WHITE BLOOD COUNT 10.2 10^3/ul (4.8-10.8)
[2017-01-17 05:13] LABS: ALBUMIN/GLOBULIN RATIO 1.29; BILIRUBIN,INDIRECT 0.4 mg/dl (0-1.1); BILIRUBIN,TOTAL 0.4 mg/dl (0.2-1.3); CALCIUM 8.5 mg/dl (8.4-10.2); CREATININE 3.2 mg/dl (0.61-1.24); POTASSIUM 4.4 mmol/L (3.5-5.1); TOTAL PROTEIN 7.1 g/dl (6.1-8.1)
[2017-01-17] MEDS: PANTOPRAZOLE 40 MG INJ IV SCH (05:40)
--- NOTE | 2017-01-17 08:13 | RADRPT ---
PROCEDURE: XR Chest. CLINICAL INDICATION: Routine TECHNIQUE: Single frontal view of the chest was obtained. COMPARISON: Chest x-ray from 01/15/2017 FINDINGS: The endotracheal tube, enteric tube, and right-sided dialysis catheter are unchanged in position. The heart and mediastinum are within normal limits. The aortic arch is calcified. There are low lung volumes with increased prominence of interstitial markings due to worsening conge stive changes and / or vascular crowding. There is a stable small possibly layering right pleural effusion. There may be a tiny stable left p leural effusion. IMPRESSION: Low lung volumes with mildly increased prominence of interstitial markings due to worsening congesti ve changes and / or vascular crowding. Likely stable small layering right pleural effusion. Possible tiny stable left pleural effusion. Lines and support tubes are unchanged. RPTAT: EE Physician Monika Date Time Electronically viewed and signed by Physician Monika on 01/17/2017 08:13 /
[2017-01-17 08:20] LABS: AADO2 Arterial 21.4 mmHg (7.0-24.0); Allen Test ACCEPTAB; Arterial Base Excess 1.9 mmol/L (-3.0-3); Arterial COHb 0.2 % (0.0-3.0); Arterial Fraction of Oxyhgb 98.1 % (93.0-99.0); Arterial MetHb 0.2 % (0.0-1.5); MODE VENT - AC
--- NOTE | 2017-01-17 08:50 | CONS ---
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 Blood cultures from HD catheter on 12/13/2016 are negative to date. 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 MRI on 12/06/2016 and bone scan on showed 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 and left fourth proximal phalanx. 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 as of now Consultation Date/Type/Reason Admit Date/Time Dec 02, 2016 at 21:01 Initial Consult Date Type of Consultation: NEPHROLOGY Reason for Consultation ESRD on HD Referring Provider: VIET PARKER MD 24 HR Interval Summary Free Text/Dictation pt remains intubated, BP labile, plan for HD today Exam/Review of Systems Vital Signs Vitals Vital Signs Date Time Temp Pulse Resp B/P Pulse Ox O2 Delivery O2 Flow Rate FiO2 01/17/17 08:00 30 01/17/17 08:00 98.4 74 17 109/45 100 Mechanical Ventilator Intake and Output 01/16/17 01/16/17 01/17/17 15:00 23:00 07:00 Intake Total 950 ml 590 ml 340 ml Output Total 250 ml 400 ml Balance 950 ml 340 ml -60 ml Exam Constitutional: non verbal ENMT: Et tube in place Neck: non-tender, supple Respiratory: other (Intubated) Cardiovascular: nl pulses, regular rate and rhythm Gastrointestinal: nl liver, spleen, non-tender, soft Neurological: other (Eyes are open but does not follow commands, does not communicate, intubated and mechanically ventilated, very limited exam) + permcath in place Results Result Diagram: 01/17/17 0345 01/17/17 0345 Results 24 hrs Laboratory Tests Test 01/16/17 09:48 01/16/17 13:14 01/16/17 17:05 01/16/17 20:37 Bedside Glucose 150 184 177 214 Test 01/17/17 01:25 01/17/17 03:45 01/17/17 05:38 01/17/17 07:00 Bedside Glucose 185 126 White Blood Count 10.2 Red Blood Count 3.12 L Hemoglobin 9.5 L Hematocrit 29.6 L Mean Corpuscular Volume 94.9 Mean Corpuscular Hemoglobin 30.4 Mean Corpuscular Hemoglobin Concent 32.1 Red Cell Distribution Width 13.2 Platelet Count 182 Mean Platelet Volume 10.9 H Neutrophils % 78.5 H Lymphocytes % 11.8 L Monocytes % 8.4 Eosinophils % 0.3 Basophils % 0.2 Nucleated Red Blood Cells % 0.0 Neutrophils # 8.0 H Lymphocytes # 1.2 Monocytes # 0.9 Eosinophils # 0.0 Basophils # 0.0 Nucleated Red Blood Cells # 0.0 Sodium Level 145 H Potassium Level 4.4 Chloride Level 105 Carbon Dioxide Level 27 Anion Gap 17 H Blood Urea Nitrogen 90 H Creatinine 3.20 H Glucose Level 138 Calcium Level 8.5 Total Bilirubin 0.4 Direct Bilirubin 0.00 Indirect Bilirubin 0.4 Aspartate Amino Transf (AST/SGOT) 28 Alanine Aminotransferase (ALT/SGPT) 28 Alkaline Phosphatase 78 Total Protein 7.1 Albumin 4.0 Globulin 3.10 Albumin/Globulin Ratio 1.29 Blood Gas Specimen Source Blood arterial Arterial Blood Date Drawn 01/17/2017 7:50:51 AM Arterial Blood pH (Temp corrected) 7.450 Arterial Blood pCO2 (Temp correct) 38.2 Arterial Blood pO2 (Temp corrected) 147.6 H Arterial Blood HCO3 26.0 Arterial Blood Base Excess 1.9 Arterial Blood Oxygen Saturation 98.5 H Derek Test ACCEPTAB Arterial Blood Gas Puncture Site Right Radial Arterial Blood Carboxyhemoglobin 0.2 Arterial Blood Methemoglobin 0.2 Blood Gas A-a O2 Differential 21.4 Oxyhemoglobin Percent 98.1 Total Hemoglobin 10.0 L Blood Gas Temperature 37.0 Blood Gas Respiration Rate 16.0 Blood Gas Actual Respiration Rate 16 Blood Gas Modality VENT - AC FiO2 30.0 Blood Gas Tidal Volume 500.0 Blood Gas Low PEEP Setting 5.0 Blood Gas Notified Whom JLD Blood Gas Notified Time 01/17/2017 8:20:33 AM Medications Medications Current Medications Ondansetron HCl (Zofran Inj) 4 mg Q6H PRN IV NAUSEA AND/OR VOMITING Last administered on 12/13/16 01:13; Admin Dose 4 MG; Start 12/02/16 at 22:30 Miscellaneous Information 1 ea NOTE XX ; Start 12/02/16 at 23:00 Glucose (Glutose) 15 gm Q15M PRN PO DECREASED GLUCOSE; Start 12/02/16 at 23:00 Glucose (Glutose) 22.5 gm Q15M PRN PO DECREASED GLUCOSE; Start 12/02/16 at 23: 00 Dextrose (D50w Syringe) 25 ml Q15M PRN IV DECREASED GLUCOSE Last administered on 12/10/16 05:52; Admin Dose 25 ML; Start 12/02/16 at 23:00 Dextrose (D50w Syringe) 50 ml Q15M PRN IV DECREASED GLUCOSE; Start 12/02/16 at 23:00 Glucagon (Glucagen) 1 mg Q15M PRN IM DECREASED GLUCOSE; Start 12/02/16 at 23:00 Glucose (Glutose) 15 gm Q15M PRN BUCCAL DECREASED GLUCOSE; Start 12/02/16 at 23 :00 Gabapentin (Neurontin) 800 mg TID PO Last administered on 12/08/16 20:33; Admin Dose 800 MG; Start 12/03/16 at 09:00; Status Future Hold Benazepril HCl (Lotensin) 10 mg DAILY PO Last administered on 12/07/16 08:26; Admin Dose 10 MG; Start 12/04/16 at 09:00; Status Future Hold Acetaminophen (Tylenol Supp) 650 mg Q6H PRN [place] ELEVATED TEMPERATURE Last administered on 01/13/17 20:32; Admin Dose 650 MG; Start 12/09/16 at 17:00 Hydralazine HCl (Apresoline) 10 mg Q6H PRN IV SBP>150mm hg Last administered on 12/19/16 08:50; Admin Dose 10 MG; Start 12/11/16 at 10:30 Morphine Sulfate (morphine) 2 mg Q2H PRN IV PAIN LEVEL 4-7; Start 12/13/16 at 10 :00 Collagenase 1 applic 1 applic DAILY TOP Last administered on 01/16/17 10:30; Admin Dose 1 APPLIC; Start 01/04/17 at 09:00 Linezolid (Zyvox 600mg/D5W (Pmx)) 300 ml @ 300 mls/hr Q12 IVPB Last administered on 01/16/17 20:42; Admin Dose 300 MLS/HR; Start 01/08/17 at 18:00 Insulin Aspart (Novolog Insulin Pen) NOVOLOG *MODERATE* ALGORI... Q4 SC Last administered on 01/17/17 01:27; Admin Dose 2 UNIT; Start 01/09/17 at 14:15 Diagnostic Test (Pha) 1 ea 1 ea 02 XX Last administered on 01/16/17 02:00; Admin Dose 1 EA; Start 01/10/17 at 02:00 Caspofungin/ Sodium Chloride (Cancidas/NS) 250 ml @ 250 mls/hr Q24H IVPB Last administered on 01/16/17 11:26; Admin Dose 250 MLS/HR; Start 01/13/17 at 09:30 Metoprolol Tartrate (Lopressor) 5 mg Q4 PRN IV FOR H.R>110; Start 01/12/17 at 17:30 Acetaminophen (Tylenol Liquid) 650 mg Q6H PRN NGT PAIN AND OR ELEVATED TEMP; Start 01/13/17 at 23:30 Amiodarone HCl (Cordarone) 200 mg BID NGT Last administered on 01/16/17 20:38; Admin Dose 200 MG; Start 01/13/17 at 21:00 Apixaban (Eliquis) 2.5 mg BID NGT Last administered on 01/16/17 20:40; Admin Dose 2.5 MG; Start 01/13/17 at 21:00 Acetaminophen/ Hydrocodone Bitart ([place] (5/325)) 1 tab Q6H PRN NGT PAIN LEVEL 4-7; Start 01/13/17 at 23:30 Levetiracetam (Keppra Liquid) 1,000 mg DAILY NGT Last administered on 01/16/17 09:44; Admin Dose 1,000 MG; Start 01/14/17 at 09:00 Meclizine HCl (Antivert) 25 mg TID PRN NGT dizziness; Start 01/13/17 at 20:00 Metoprolol Tartrate (Lopressor) 50 mg BID NGT Last administered on 01/16/17 20: 40; Admin Dose 50 MG; Start 01/13/17 at 21:00 Zolpidem Tartrate (Ambien) 5 mg HS PRN NGT INSOMNIA; Start 01/13/17 at 20:00 Aspirin (Aspirin) 81 mg DAILY NGT Last administered on 01/16/17 09:44; Admin Dose 81 MG; Start 01/14/17 at 09:00 Docusate Sodium (Colace Liquid Cup) 100 mg BID NGT Last administered on 20:38; Admin Dose 100 MG; Start 01/13/17 at 21:00 Pantoprazole (Protonix Iv) 40 mg DAILY@06 IV Last administered on 01/17/17 05: 40; Admin Dose 40 MG; Start 01/14/17 at 06:00 Insulin Aspart 5 unit 5 unit BID SC Last administered on 01/16/17 20:44; Admin Dose 5 UNIT; Start 01/15/17 at 21:00 Cefepime HCl (Maxipime 1gm/50 ml (Pmx)) 50 ml @ 100 mls/hr DAILY IVPB Last administered on 01/16/17 09:44; Admin Dose 100 MLS/HR; Start 01/15/17 at 20:00 Insulin Glargine (Lantus) 38 unit DAILY@20 SC Last administered on 01/16/17 20: 42; Admin Dose 38 UNIT; Start 01/16/17 at 20:00 TASHIA MCGARRY MD Jan 17, 2017 08:50
[2017-01-17] MEDS: METOPROLOL 50 MG TAB NGT SCH ×2 (09:00→20:35)
[2017-01-17] MEDS: LINEZOLID 600 MG/D5W (PMX) 300 ML IVPB SCH ×2 (09:14→20:33)
[2017-01-17] MEDS: ASPIRIN 81 MG TAB NGT SCH (09:14)
[2017-01-17] MEDS: CEFEPIME 1GM/50 ML (PMX) 50 ML IVPB SCH (09:14)
[2017-01-17] MEDS: LEVETIRACETAM (100 MG/ML) 5ML CUP NGT SCH ×2 (09:17→11:54)
[2017-01-17] MEDS: DOCUSATE SODIUM 10 MG/ML (10ML CUP) NGT SCH ×2 (09:17→20:33)
[2017-01-17] MEDS: APIXABAN 5 MG TABLET NGT SCH ×2 (09:18→20:34)
[2017-01-17] MEDS: COLLAGENASE 30 GM TUBE TOP SCH (09:19)
--- NOTE | 2017-01-17 10:34 | CONS ---
Date/Time of Note Date/Time of Note DATE: 01/17/17 TIME: 10:31 Assessment/Plan Assessment/Plan Additional Assessment/Plan Ventilator setting; AC of 16, tidal volume 500, PEEP of 5, 30% FiO2. Assessment recommendations; 1. Patient admitted for cellulitis then developed renal failure requiring hemodialysis. 2. Recurrent respiratory failure possibly from underlying cardiomyopathy causing flash pulmonary edema. 3. Superimposed pneumonia. With marked radiological improvement. 4. Status post CPR likely causing anoxic brain injury. Continue current supportive care. Prognosis is poor. Consultation Date/Type/Reason Admit Date/Time Dec 02, 2016 at 21:01 Initial Consult Date 12/03/16 Type of Consultation: Pulmonary/critical care Referring Provider: VIET PARKER MD 24 HR Interval Summary Free Text/Dictation Patient condition remains critical. Still exhibiting very poor mental status. Patient however has remained hemodynamically stable. No adverse events reported overnight. Next General exam; elderly male, orally intubated, somewhat arousable. Currently in no distress. Exam/Review of Systems Vital Signs Vitals Vital Signs Date Time Temp Pulse Resp B/P Pulse Ox O2 Delivery O2 Flow Rate FiO2 01/17/17 08:00 30 01/17/17 08:00 77 01/17/17 08:00 98.4 17 109/45 100 Mechanical Ventilator Intake and Output 01/16/17 01/16/17 01/17/17 15:00 23:00 07:00 Intake Total 950 ml 590 ml 340 ml Output Total 250 ml 400 ml Balance 950 ml 340 ml -60 ml Exam HEENT examination; supple neck, no JVD. No lymphadenopathy. Midline trachea. No thyromegaly. Orally intubated. Patient is edentulous. Pupils are small bilaterally. Chest examination; clear to auscultation. S1-S2 audible, no murmurs. Regular rhythm. Abdomen examination; soft, nondistended. No organomegaly. Bowel sounds audible. Extremity examination; no peripheral edema. DAIRY GRAZER examination; patient is minimally responsive to sternal rubbing. Results Result Diagram: 01/17/17 0345 01/17/17 0345 Results 24 hrs Laboratory Tests Test 01/16/17 13:14 01/16/17 17:05 01/16/17 20:37 01/17/17 01:25 Bedside Glucose 184 177 214 185 Test 01/17/17 03:45 01/17/17 05:38 01/17/17 07:00 01/17/17 09:26 White Blood Count 10.2 Red Blood Count 3.12 L Hemoglobin 9.5 L Hematocrit 29.6 L Mean Corpuscular Volume 94.9 Mean Corpuscular Hemoglobin 30.4 Mean Corpuscular Hemoglobin Concent 32.1 Red Cell Distribution Width 13.2 Platelet Count 182 Mean Platelet Volume 10.9 H Neutrophils % 78.5 H Lymphocytes % 11.8 L Monocytes % 8.4 Eosinophils % 0.3 Basophils % 0.2 Nucleated Red Blood Cells % 0.0 Neutrophils # 8.0 H Lymphocytes # 1.2 Monocytes # 0.9 Eosinophils # 0.0 Basophils # 0.0 Nucleated Red Blood Cells # 0.0 Sodium Level 145 H Potassium Level 4.4 Chloride Level 105 Carbon Dioxide Level 27 Anion Gap 17 H Blood Urea Nitrogen 90 H Creatinine 3.20 H Glucose Level 138 Calcium Level 8.5 Total Bilirubin 0.4 Direct Bilirubin 0.00 Indirect Bilirubin 0.4 Aspartate Amino Transf (AST/SGOT) 28 Alanine Aminotransferase (ALT/SGPT) 28 Alkaline Phosphatase 78 Total Protein 7.1 Albumin 4.0 Globulin 3.10 Albumin/Globulin Ratio 1.29 Bedside Glucose 126 112 Blood Gas Specimen Source Blood arterial Arterial Blood Date Drawn 01/17/2017 7:50:51 AM Arterial Blood pH (Temp corrected) 7.450 Arterial Blood pCO2 (Temp correct) 38.2 Arterial Blood pO2 (Temp corrected) 147.6 H Arterial Blood HCO3 26.0 Arterial Blood Base Excess 1.9 Arterial Blood Oxygen Saturation 98.5 H Derek Test ACCEPTAB Arterial Blood Gas Puncture Site Right Radial Arterial Blood Carboxyhemoglobin 0.2 Arterial Blood Methemoglobin 0.2 Blood Gas A-a O2 Differential 21.4 Oxyhemoglobin Percent 98.1 Total Hemoglobin 10.0 L Blood Gas Temperature 37.0 Blood Gas Respiration Rate 16.0 Blood Gas Actual Respiration Rate 16 Blood Gas Modality VENT - AC FiO2 30.0 Blood Gas Tidal Volume 500.0 Blood Gas Low PEEP Setting 5.0 Blood Gas Notified Whom JLD Blood Gas Notified Time 01/17/2017 8:20:33 AM Medications Medications Current Medications Ondansetron HCl (Zofran Inj) 4 mg Q6H PRN IV NAUSEA AND/OR VOMITING Last administered on 12/13/16t 01:13; Admin Dose 4 MG; Start 12/02/16 at 22:30 Miscellaneous Information 1 ea NOTE XX ; Start 12/02/16 at 23:00 Glucose (Glutose) 15 gm Q15M PRN PO DECREASED GLUCOSE; Start 12/02/16 at 23:00 Glucose (Glutose) 22.5 gm Q15M PRN PO DECREASED GLUCOSE; Start 12/02/16 at 23: 00 Dextrose (D50w Syringe) 25 ml Q15M PRN IV DECREASED GLUCOSE Last administered on 12/10/16 05:52; Admin Dose 25 ML; Start 12/02/16 at 23:00 Dextrose (D50w Syringe) 50 ml Q15M PRN IV DECREASED GLUCOSE; Start 12/02/16 at 23:00 Glucagon (Glucagen) 1 mg Q15M PRN IM DECREASED GLUCOSE; Start 12/02/16 at 23:00 Glucose (Glutose) 15 gm Q15M PRN BUCCAL DECREASED GLUCOSE; Start 12/02/16 at 23 :00 Gabapentin (Neurontin) 800 mg TID PO Last administered on 12/08/16 20:33; Admin Dose 800 MG; Start 12/03/16 at 09:00; Status Future Hold Benazepril HCl (Lotensin) 10 mg DAILY PO Last administered on 12/07/16 08:26; Admin Dose 10 MG; Start 12/04/16 at 09:00; Status Future Hold Acetaminophen (Tylenol Supp) 650 mg Q6H PRN [place] ELEVATED TEMPERATURE Last administered on 01/13/17 20:32; Admin Dose 650 MG; Start 12/09/16 at 17:00 Hydralazine HCl (Apresoline) 10 mg Q6H PRN IV SBP>150mm hg Last administered on 12/19/16 08:50; Admin Dose 10 MG; Start 12/11/16 at 10:30 Morphine Sulfate (morphine) 2 mg Q2H PRN IV PAIN LEVEL 4-7; Start 12/13/16 at 10 :00 Collagenase 1 applic 1 applic DAILY TOP Last administered on 01/17/17 09:19; Admin Dose 1 APPLIC; Start 01/04/17 at 09:00 Linezolid (Zyvox 600mg/D5W (Pmx)) 300 ml @ 300 mls/hr Q12 IVPB Last administered on 01/17/17 09:14; Admin Dose 300 MLS/HR; Start 01/08/17 at 18:00 Insulin Aspart (Novolog Insulin Pen) NOVOLOG *MODERATE* ALGORI... Q4 SC Last administered on 01/17/17 01:27; Admin Dose 2 UNIT; Start 01/09/17 at 14:15 Diagnostic Test (Pha) 1 ea 1 ea 02 XX Last administered on 01/16/17 02:00; Admin Dose 1 EA; Start 01/10/17 at 02:00 Caspofungin/ Sodium Chloride (Cancidas/NS) 250 ml @ 250 mls/hr Q24H IVPB Last administered on 01/16/17 11:26; Admin Dose 250 MLS/HR; Start 01/13/17 at 09:30 Metoprolol Tartrate (Lopressor) 5 mg Q4 PRN IV FOR H.R>110; Start 01/12/17 at 17:30 Acetaminophen (Tylenol Liquid) 650 mg Q6H PRN NGT PAIN AND OR ELEVATED TEMP; Start 01/13/17 at 23:30 Amiodarone HCl (Cordarone) 200 mg BID NGT Last administered on 01/16/17 20:38; Admin Dose 200 MG; Start 01/13/17 at 21:00 Apixaban (Eliquis) 2.5 mg BID NGT Last administered on 01/17/17 09:18; Admin Dose 2.5 MG; Start 01/13/17 at 21:00 Acetaminophen/ Hydrocodone Bitart ([place] (5/325)) 1 tab Q6H PRN NGT PAIN LEVEL 4-7; Start 01/13/17 at 23:30 Levetiracetam (Keppra Liquid) 1,000 mg DAILY NGT Last administered on 01/17/17 09:17; Admin Dose 1,000 MG; Start 01/14/17 at 09:00 Meclizine HCl (Antivert) 25 mg TID PRN NGT dizziness; Start 01/13/17 at 20:00 Metoprolol Tartrate (Lopressor) 50 mg BID NGT Last administered on 01/16/17 20: 40; Admin Dose 50 MG; Start 01/13/17 at 21:00 Zolpidem Tartrate (Ambien) 5 mg HS PRN NGT INSOMNIA; Start 01/13/17 at 20:00 Aspirin (Aspirin) 81 mg DAILY NGT Last administered on 01/17/17 09:14; Admin Dose 81 MG; Start 01/14/17 at 09:00 Docusate Sodium (Colace Liquid Cup) 100 mg BID NGT Last administered on 09:17; Admin Dose 100 MG; Start 01/13/17 at 21:00 Pantoprazole (Protonix Iv) 40 mg DAILY@06 IV Last administered on 01/17/17 05: 40; Admin Dose 40 MG; Start 01/14/17 at 06:00 Insulin Aspart 5 unit 5 unit BID SC Last administered on 01/17/17 09:29; Admin Dose 5 UNIT; Start 01/15/17 at 21:00 Cefepime HCl (Maxipime 1gm/50 ml (Pmx)) 50 ml @ 100 mls/hr DAILY IVPB Last administered on 01/17/17 09:14; Admin Dose 100 MLS/HR; Start 01/15/17 at 20:00 Insulin Glargine (Lantus) 38 unit DAILY@20 SC Last administered on 01/16/17 20: 42; Admin Dose 38 UNIT; Start 01/16/17 at 20:00 IKE MULLER Jan 17, 2017 10:34
--- NOTE | 2017-01-17 11:44 | CONS ---
Date/Time of Note Date/Time of Note DATE: 01/17/17 TIME: 11:41 Assessment/Plan Assessment/Plan Chief Complaint/Hosp Course IMPRESSION: 1. Atrial fibrillation-Having episodes of PAF with reasonable rate control 2. Hypotension-borderline while on HD currently 3. Abnormal electrocardiogram with inferolateral T-wave inversions. 4. Respiratory failure-s/p intubation and remains thus 5. Nonhealing toe ulceration-vascular following 6. Peripheral arterial disease by arterial ultrasound of the lower extremities this admission. 7. Diabetes mellitus. 8. Fevers. 9. Positive troponin-downtrended 10.Bradycardia-improved/stable 11.-severe by echo 12.Cardiomyopathy-EF 40-45% by echo/36% by stress with no ischemia but positive scar. EF <30% by echo post arrest 14.Encephalopathy-anoxic 15. s/p cardiopulmonary arrest 01/08 Recc: -Tele -serial ecg -HD for volume removal as tolerated -Continue baby asa/eliquis -Continue PO amio in attempt to maintain SR but will increase to Q8 for short while -Continue BB as tolerated only following HR/BP closely -Will hold on afterload reduction given severe and thus fixed afterload at valve orifice -WEan vent as possible/tolerated Problems: Consultation Date/Type/Reason Admit Date/Time Dec 02, 2016 at 21:01 Initial Consult Date 12/03/16 Type of Consultation: Cardiology Reason for Consultation PAF//cardiomyopathy Referring Provider: VIET PARKER MD Exam/Review of Systems Vital Signs Vitals Vital Signs Date Time Temp Pulse Resp B/P Pulse Ox O2 Delivery O2 Flow Rate FiO2 01/17/17 11:00 98 20 86/51 100 Mechanical Ventilator 01/17/17 08:00 30 01/17/17 08:00 98.4 Intake and Output 01/16/17 01/16/17 01/17/17 15:00 23:00 07:00 Intake Total 950 ml 590 ml 340 ml Output Total 250 ml 400 ml Balance 950 ml 340 ml -60 ml Exam Review of Systems: CONSTITUTIONAL: No fevers, chills. PULMONARY: No sob CARDIOVASCULAR: No chest pain/palpitations GASTROINTESTINAL: No nausea/vomiting. GENITOURINARY: No hematuria/dysuria. MUSCULOSKELETAL: No myagias/arthalgias. PSYCHIATRIC: The patient denies depression. NEUROLOGIC: No weakness Constitutional: alert Psych: no complaints Head: normocephalic ENMT: mucosa pink and moist Neck: jvd (9 cm water), supple Respiratory: diminished breath sounds (at bases/B) Cardiovascular: regular rate and rhythm Gastrointestinal: non-tender, soft Musculoskeletal: muscle tone (normal) Extremities: edema (none) Neurological: other (sedated) Results Result Diagram: 01/17/17 0345 01/17/17 0345 Results 24 hrs Laboratory Tests Test 01/16/17 13:14 01/16/17 17:05 01/16/17 20:37 01/17/17 01:25 Bedside Glucose 184 177 214 185 Test 01/17/17 03:45 01/17/17 05:38 01/17/17 07:00 01/17/17 09:26 White Blood Count 10.2 Red Blood Count 3.12 L Hemoglobin 9.5 L Hematocrit 29.6 L Mean Corpuscular Volume 94.9 Mean Corpuscular Hemoglobin 30.4 Mean Corpuscular Hemoglobin Concent 32.1 Red Cell Distribution Width 13.2 Platelet Count 182 Mean Platelet Volume 10.9 H Neutrophils % 78.5 H Lymphocytes % 11.8 L Monocytes % 8.4 Eosinophils % 0.3 Basophils % 0.2 Nucleated Red Blood Cells % 0.0 Neutrophils # 8.0 H Lymphocytes # 1.2 Monocytes # 0.9 Eosinophils # 0.0 Basophils # 0.0 Nucleated Red Blood Cells # 0.0 Sodium Level 145 H Potassium Level 4.4 Chloride Level 105 Carbon Dioxide Level 27 Anion Gap 17 H Blood Urea Nitrogen 90 H Creatinine 3.20 H Glucose Level 138 Calcium Level 8.5 Total Bilirubin 0.4 Direct Bilirubin 0.00 Indirect Bilirubin 0.4 Aspartate Amino Transf (AST/SGOT) 28 Alanine Aminotransferase (ALT/SGPT) 28 Alkaline Phosphatase 78 Total Protein 7.1 Albumin 4.0 Globulin 3.10 Albumin/Globulin Ratio 1.29 Bedside Glucose 126 112 Blood Gas Specimen Source Blood arterial Arterial Blood Date Drawn 01/17/2017 7:50:51 AM Arterial Blood pH (Temp corrected) 7.450 Arterial Blood pCO2 (Temp correct) 38.2 Arterial Blood pO2 (Temp corrected) 147.6 H Arterial Blood HCO3 26.0 Arterial Blood Base Excess 1.9 Arterial Blood Oxygen Saturation 98.5 H Deerk Test ACCEPTAB Arterial Blood Gas Puncture Site Right Radial Arterial Blood Carboxyhemoglobin 0.2 Arterial Blood Methemoglobin 0.2 Blood Gas A-a O2 Differential 21.4 Oxyhemoglobin Percent 98.1 Total Hemoglobin 10.0 L Blood Gas Temperature 37.0 Blood Gas Respiration Rate 16.0 Blood Gas Actual Respiration Rate 16 Blood Gas Modality VENT - AC FiO2 30.0 Blood Gas Tidal Volume 500.0 Blood Gas Low PEEP Setting 5.0 Blood Gas Notified Whom JLD Blood Gas Notified Time 01/17/2017 8:20:33 AM Medications Medications Current Medications Ondansetron HCl (Zofran Inj) 4 mg Q6H PRN IV NAUSEA AND/OR VOMITING Last administered on 12/13/16 01:13; Admin Dose 4 MG; Start 12/02/16 at 22:30 Miscellaneous Information 1 ea NOTE XX ; Start 12/02/16 at 23:00 Glucose (Glutose) 15 gm Q15M PRN PO DECREASED GLUCOSE; Start 12/02/16 at 23:00 Glucose (Glutose) 22.5 gm Q15M PRN PO DECREASED GLUCOSE; Start 12/02/16 at 23: 00 Dextrose (D50w Syringe) 25 ml Q15M PRN IV DECREASED GLUCOSE Last administered on 12/10/16 05:52; Admin Dose 25 ML; Start 12/02/16 at 23:00 Dextrose (D50w Syringe) 50 ml Q15M PRN IV DECREASED GLUCOSE; Start 12/02/16 at 23:00 Glucagon (Glucagen) 1 mg Q15M PRN IM DECREASED GLUCOSE; Start 12/02/16 at 23:00 Glucose (Glutose) 15 gm Q15M PRN BUCCAL DECREASED GLUCOSE; Start 12/02/16 at 23 :00 Gabapentin (Neurontin) 800 mg TID PO Last administered on 12/08/16 20:33; Admin Dose 800 MG; Start 12/03/16 at 09:00; Status Future Hold Benazepril HCl (Lotensin) 10 mg DAILY PO Last administered on 12/07/16 08:26; Admin Dose 10 MG; Start 12/04/16 at 09:00; Status Future Hold Acetaminophen (Tylenol Supp) [address] ELEVATED TEMPERATURE Last administered on 01/13/17 20:32; Admin Dose 650 MG; Start 12/09/16 at 17:00 Hydralazine HCl (Apresoline) 10 mg Q6H PRN IV SBP>150mm hg Last administered on 12/19/16 08:50; Admin Dose 10 MG; Start 12/11/16 at 10:30 Morphine Sulfate (morphine) 2 mg Q2H PRN IV PAIN LEVEL 4-7; Start 12/13/16 at 10 :00 Collagenase 1 applic 1 applic DAILY TOP Last administered on 01/17/17 09:19; Admin Dose 1 APPLIC; Start 01/04/17 at 09:00 Linezolid (Zyvox 600mg/D5W (Pmx)) 300 ml @ 300 mls/hr Q12 IVPB Last administered on 01/17/17 09:14; Admin Dose 300 MLS/HR; Start 01/08/17 at 18:00 Insulin Aspart (Novolog Insulin Pen) NOVOLOG *MODERATE* ALGORI... Q4 SC Last administered on 01/17/17 01:27; Admin Dose 2 UNIT; Start 01/09/17 at 14:15 Diagnostic Test (Pha) 1 ea 1 ea 02 XX Last administered on 01/16/17 02:00; Admin Dose 1 EA; Start 01/10/17 at 02:00 Caspofungin/ Sodium Chloride (Cancidas/NS) 250 ml @ 250 mls/hr Q24H IVPB Last administered on 01/16/17 11:26; Admin Dose 250 MLS/HR; Start 01/13/17 at 09:30 Metoprolol Tartrate (Lopressor) 5 mg Q4 PRN IV FOR H.R>110; Start 01/12/17 at 17:30 Acetaminophen (Tylenol Liquid) 650 mg Q6H PRN NGT PAIN AND OR ELEVATED TEMP; Start 01/13/17 at 23:30 Amiodarone HCl (Cordarone) 200 mg BID NGT Last administered on 01/16/17 20:38; Admin Dose 200 MG; Start 01/13/17 at 21:00 Apixaban (Eliquis) 2.5 mg BID NGT Last administered on 01/17/17 09:18; Admin Dose 2.5 MG; Start 01/13/17 at 21:00 Acetaminophen/ Hydrocodone Bitart ([place] (5/325)) 1 tab Q6H PRN NGT PAIN LEVEL 4-7; Start 01/13/17 at 23:30 Levetiracetam (Keppra Liquid) 1,000 mg DAILY NGT Last administered on 01/17/17 09:17; Admin Dose 1,000 MG; Start 01/14/17 at 09:00 Meclizine HCl (Antivert) 25 mg TID PRN NGT dizziness; Start 01/13/17 at 20:00 Metoprolol Tartrate (Lopressor) 50 mg BID NGT Last administered on 01/16/17 20: 40; Admin Dose 50 MG; Start 01/13/17 at 21:00 Zolpidem Tartrate (Ambien) 5 mg HS PRN NGT INSOMNIA; Start 01/13/17 at 20:00 Aspirin (Aspirin) 81 mg DAILY NGT Last administered on 01/17/17 09:14; Admin Dose 81 MG; Start 01/14/17 at 09:00 Docusate Sodium (Colace Liquid Cup) 100 mg BID NGT Last administered on 09:17; Admin Dose 100 MG; Start 01/13/17 at 21:00 Pantoprazole (Protonix Iv) 40 mg DAILY@06 IV Last administered on 01/17/17 05: 40; Admin Dose 40 MG; Start 01/14/17 at 06:00 Insulin Aspart 5 unit 5 unit BID SC Last administered on 01/17/17 09:29; Admin Dose 5 UNIT; Start 01/15/17 at 21:00 Cefepime HCl (Maxipime 1gm/50 ml (Pmx)) 50 ml @ 100 mls/hr DAILY IVPB Last administered on 01/17/17 09:14; Admin Dose 100 MLS/HR; Start 01/15/17 at 20:00 Insulin Glargine (Lantus) 38 unit DAILY@20 SC Last administered on 01/16/17 20: 42; Admin Dose 38 UNIT; Start 01/16/17 at 20:00 VICENTE LESLIE Jan 17, 2017 11:44
[2017-01-17] MEDS: CASPOFUNGIN 50 MG in SOD CHLORIDE 0.9% 250 ML IVPB SCH (11:54)
[2017-01-17] MEDS: AMIODARONE 200 MG TAB NGT SCH ×2 (14:00→22:03)
--- NOTE | 2017-01-17 15:17 | PN ---
Date/Time of Note Date/Time of Note DATE: 01/17/17 TIME: 15:07 Assessment/Plan VTE Prophylaxis VTE Prophylaxis Intervention: SCD's Lines/Catheters IV [facility]ter Type (from [facility]): Peripheral IV Urinary Cath still in place: No Assessment/Plan Chief Complaint/Hosp Course Patient's continued on ventilatory support, stable vital signs, patient does not follow any commands, flaccid extremities, opens eyes did not track. Status post hemodialysis today was 1.5 L fluid removal. ASSESSMENT AND PLAN: - Status post cardiopulmonary arrest on 12/09/2016 and 01/08/2017. Continue ICU care, ventilatory support. - Suspected anoxic encephalopathy. Dr. Villa is following in neurology consultation. Continue Keppra. Pending subsequent EEG. Pending family regarding their decision regarding focus of care. - Possible tracheobronchitis versus pneumonia. Dr. Katie pritchard is following an infection disease consultation. Continue antibiotics per ID. - ESRD. Patient is followed by Dr. Remy and nephrology consultation. continue hemodialysis. - Diabetes mellitus type 2. Continue Lantus and NovoLog per sliding scale with q.4h. Accu-Chek. - Paroxysmal atrial fibrillation. Continue aspirin and Eliquis. Dr. Cobian is following the patient in cardiology consultation. Amiodarone dose titrated by cardiology for rate control. - Osteomyelitis of the distal phalanx of the left great toe and left proximal phalanx. Completed the course of antibiotics. - Peripheral arterial disease. - Diabetic foot ulcer. Continue current wound care. Further recommendations based on clinical course. Plan of care discussed with Dr. Heredia Problems: Exam/Review of Systems Vital Signs Vitals Vital Signs Date Time Temp Pulse Resp B/P Pulse Ox O2 Delivery O2 Flow Rate FiO2 01/17/17 15:00 59 17 93/50 100 Mechanical Ventilator 01/17/17 12:00 98.8 01/17/17 11:42 30 Intake and Output 01/16/17 01/16/17 01/17/17 15:00 23:00 07:00 Intake Total 950 ml 590 ml 340 ml Output Total 250 ml 400 ml Balance 950 ml 340 ml -60 ml Exam Constitutional: frail, non-verbal Head: atraumatic, normocephalic Respiratory: diminished breath sounds Cardiovascular: edema, nl pulses Gastrointestinal: non-tender, soft Genitourinary - Male: other ([place] catheter) Skin: other (Wound left lower extremity) Results Result Diagram: 01/17/17 0345 01/17/17 0345 Results 24 hrs Laboratory Tests Test 01/16/17 17:05 01/16/17 20:37 01/17/17 01:25 01/17/17 03:45 Bedside Glucose 177 214 185 White Blood Count 10.2 Red Blood Count 3.12 L Hemoglobin 9.5 L Hematocrit 29.6 L Mean Corpuscular Volume 94.9 Mean Corpuscular Hemoglobin 30.4 Mean Corpuscular Hemoglobin Concent 32.1 Red Cell Distribution Width 13.2 Platelet Count 182 Mean Platelet Volume 10.9 H Neutrophils % 78.5 H Lymphocytes % 11.8 L Monocytes % 8.4 Eosinophils % 0.3 Basophils % 0.2 Nucleated Red Blood Cells % 0.0 Neutrophils # 8.0 H Lymphocytes # 1.2 Monocytes # 0.9 Eosinophils # 0.0 Basophils # 0.0 Nucleated Red Blood Cells # 0.0 Sodium Level 145 H Potassium Level 4.4 Chloride Level 105 Carbon Dioxide Level 27 Anion Gap 17 H Blood Urea Nitrogen 90 H Creatinine 3.20 H Glucose Level 138 Calcium Level 8.5 Total Bilirubin 0.4 Direct Bilirubin 0.00 Indirect Bilirubin 0.4 Aspartate Amino Transf (AST/SGOT) 28 Alanine Aminotransferase (ALT/SGPT) 28 Alkaline Phosphatase 78 Total Protein 7.1 Albumin 4.0 Globulin 3.10 Albumin/Globulin Ratio 1.29 Test 01/17/17 05:38 01/17/17 07:00 01/17/17 09:26 01/17/17 13:29 Bedside Glucose 126 112 208 Blood Gas Specimen Source Blood arterial Arterial Blood Date Drawn 01/17/2017 7:50:51 AM Arterial Blood pH (Temp corrected) 7.450 Arterial Blood pCO2 (Temp correct) 38.2 Arterial Blood pO2 (Temp corrected) 147.6 H Arterial Blood HCO3 26.0 Arterial Blood Base Excess 1.9 Arterial Blood Oxygen Saturation 98.5 H Derek Test ACCEPTAB Arterial Blood Gas Puncture Site Right Radial Arterial Blood Carboxyhemoglobin 0.2 Arterial Blood Methemoglobin 0.2 Blood Gas A-a O2 Differential 21.4 Oxyhemoglobin Percent 98.1 Total Hemoglobin 10.0 L Blood Gas Temperature 37.0 Blood Gas Respiration Rate 16.0 Blood Gas Actual Respiration Rate 16 Blood Gas Modality VENT - AC FiO2 30.0 Blood Gas Tidal Volume 500.0 Blood Gas Low PEEP Setting 5.0 Blood Gas Notified Whom JLD Blood Gas Notified Time 01/17/2017 8:20:33 AM Medications Medications Current Medications Ondansetron HCl (Zofran Inj) 4 mg Q6H PRN IV NAUSEA AND/OR VOMITING Last administered on 12/13/16 01:13; Admin Dose 4 MG; Start 12/02/16 at 22:30 Miscellaneous Information 1 ea NOTE XX ; Start 12/02/16 at 23:00 Glucose (Glutose) 15 gm Q15M PRN PO DECREASED GLUCOSE; Start 12/02/16 at 23:00 Glucose (Glutose) 22.5 gm Q15M PRN PO DECREASED GLUCOSE; Start 12/02/16 at 23: 00 Dextrose (D50w Syringe) 25 ml Q15M PRN IV DECREASED GLUCOSE Last administered on 12/10/16 05:52; Admin Dose 25 ML; Start 12/02/16 at 23:00 Dextrose (D50w Syringe) 50 ml Q15M PRN IV DECREASED GLUCOSE; Start 12/02/16 at 23:00 Glucagon (Glucagen) 1 mg Q15M PRN IM DECREASED GLUCOSE; Start 12/02/16 at 23:00 Glucose (Glutose) 15 gm Q15M PRN BUCCAL DECREASED GLUCOSE; Start 12/02/16 at 23 :00 Gabapentin (Neurontin) 800 mg TID PO Last administered on 12/08/16 20:33; Admin Dose 800 MG; Start 12/03/16 at 09:00; Status Future Hold Benazepril HCl (Lotensin) 10 mg DAILY PO Last administered on 12/07/16 08:26; Admin Dose 10 MG; Start 12/04/16 at 09:00; Status Future Hold Acetaminophen (Tylenol Supp) 650 mg Q6H PRN [place] ELEVATED TEMPERATURE Last administered on 01/13/17 20:32; Admin Dose 650 MG; Start 12/09/16 at 17:00 Hydralazine HCl (Apresoline) 10 mg Q6H PRN IV SBP>150mm hg Last administered on 12/19/16 08:50; Admin Dose 10 MG; Start 12/11/16 at 10:30 Morphine Sulfate (morphine) 2 mg Q2H PRN IV PAIN LEVEL 4-7; Start 12/13/16 at 10 :00 Collagenase 1 applic 1 applic DAILY TOP Last administered on 01/17/17 09:19; Admin Dose 1 APPLIC; Start 01/04/17 at 09:00 Linezolid (Zyvox 600mg/D5W (Pmx)) 300 ml @ 300 mls/hr Q12 IVPB Last administered on 01/17/17 09:14; Admin Dose 300 MLS/HR; Start 01/08/17 at 18:00 Insulin Aspart (Novolog Insulin Pen) NOVOLOG *MODERATE* ALGORI... Q4 SC Last administered on 01/17/17 13:32; Admin Dose 4 UNIT; Start 01/09/17 at 14:15 Diagnostic Test (Pha) 1 ea 1 ea 02 XX Last administered on 01/16/17 02:00; Admin Dose 1 EA; Start 01/10/17 at 02:00 Caspofungin/ Sodium Chloride (Cancidas/NS) 250 ml @ 250 mls/hr Q24H IVPB Last administered on 01/17/17 11:54; Admin Dose 250 MLS/HR; Start 01/13/17 at 09:30 Metoprolol Tartrate (Lopressor) 5 mg Q4 PRN IV FOR H.R>110; Start 01/12/17 at 17:30 Acetaminophen (Tylenol Liquid) 650 mg Q6H PRN NGT PAIN AND OR ELEVATED TEMP; Start 01/13/17 at 23:30 Apixaban (Eliquis) 2.5 mg BID NGT Last administered on 01/17/17 09:18; Admin Dose 2.5 MG; Start 01/13/17 at 21:00 Acetaminophen/ Hydrocodone Bitart ([place] (5/325)) 1 tab Q6H PRN NGT PAIN LEVEL 4-7; Start 01/13/17 at 23:30 Levetiracetam (Keppra Liquid) 1,000 mg DAILY NGT Last administered on 01/17/17 09:17; Admin Dose 1,000 MG; Start 01/14/17 at 09:00 Meclizine HCl (Antivert) 25 mg TID PRN NGT dizziness; Start 01/13/17 at 20:00 Metoprolol Tartrate (Lopressor) 50 mg BID NGT Last administered on 01/17/17 09: 00; Admin Dose 50 MG; Start 01/13/17 at 21:00 Zolpidem Tartrate (Ambien) 5 mg HS PRN NGT INSOMNIA; Start 01/13/17 at 20:00 Aspirin (Aspirin) 81 mg DAILY NGT Last administered on 01/17/17 09:14; Admin Dose 81 MG; Start 01/14/17 at 09:00 Docusate Sodium (Colace Liquid Cup) 100 mg BID NGT Last administered on 09:17; Admin Dose 100 MG; Start 01/13/17 at 21:00 Pantoprazole (Protonix Iv) 40 mg DAILY@06 IV Last administered on 01/17/17 05: 40; Admin Dose 40 MG; Start 01/14/17 at 06:00 Insulin Aspart 5 unit 5 unit BID SC Last administered on 01/17/17 09:29; Admin Dose 5 UNIT; Start 01/15/17 at 21:00 Cefepime HCl (Maxipime 1gm/50 ml (Pmx)) 50 ml @ 100 mls/hr DAILY IVPB Last administered on 01/17/17 09:14; Admin Dose 100 MLS/HR; Start 01/15/17 at 20:00 Insulin Glargine (Lantus) 38 unit DAILY@20 SC Last administered on 01/16/17 20: 42; Admin Dose 38 UNIT; Start 01/16/17 at 20:00 Amiodarone HCl (Cordarone) 200 mg Q8 NGT ; Start 01/17/17 at 14:00 KIMBERLY NOYOLA Jan 17, 2017 15:17
--- NOTE | 2017-01-17 15:50 | CONS ---
Date/Time of Note Date/Time of Note DATE: 01/17/17 TIME: 15:49 Assessment/Plan Assessment/Plan Chief Complaint/Hosp Course - recurrent cardiopulmonary arrest on 12/09/2016 and on 01/08/2017 - sepsis due to possible tracheobronchitis/pneumonia - possible tracheobronchitis/pneumonia due to pseudomonas - s/p recurrent sepsis - 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 Blood cultures from HD catheter on 12/13/2016 are negative to date. 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 MRI on 12/06/2016 and bone scan on showed 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 and left fourth proximal phalanx. superficial swab grew inna only. At present, no e/o persistent infection - recurrent pleural effusion - s/p right pleural effusion s/p thoracentesis with .9L removed on 12/16/2016; ( Note: there is no pleural fluid cx since orders were placed after Right thoracentesis, and Left thoracentesis was not performed on 12/17/16 d/t insufficient fluid) - funguria - ARANZA on CKD that progressed to ESRD and started on HD from 12/09/2016 - oliguria - improved - A fib -> PAF - small nonreversible perfusion abnormality in the inferoapical and inferior carver; EF 36% per Lexiscan 12/24/2016 - severe , EF 40-45% per TTE 12/17/16 - DM - Hgb A1c 8.7% - HTN associated with DM - recurrent episodes of respiratory failure - acute encephalopathy with anoxic brain injury - stage 3 decubitus ulcer of coccyx without evidence of infection - urinary retention recommendations: - pending results: surveillance blood cultures from HD catheter at time of HD from 01/12/2017 (negative to date), peripheral blood cultures from 01/14/2017 ( negative to date), urine culture from straight cath from 01/15/2017 (prelim -Yeast ) - continue renally dosed cefepime for pseudomonas (01/15/2017-) - continue linezolid empirically (01/08/2017-), caspofungin empirically (2016-) - will monitor CBC while Pt's on linezolid - Pt completed 6 weeks of antibiotics to treat 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 and left fourth proximal phalanx: 12/03/2016-01/15/2017 (s/p pip/tazo 12/03/16-01/08/17) - continue local wound care of L 1st toe and coccyx - follow up repeat EEG results Management d/w [facility] Henderson and Dr. Wilson. Critical care time spent: 35 min Problems: Consultation Date/Type/Reason Admit Date/Time Dec 02, 2016 at 21:01 Initial Consult Date 12/03/16 Type of Consultation: Infectious Disease Referring Provider: VIET PARKER MD 24 HR Interval Summary Free Text/Dictation Afebrile; Had HD today with 1.5 L removed; Had normal BM earlier; repeat EEG pending; Clinically unchanged, eyes open, no tracking, no commands per d/w nursing staff. Unable to perform ROS due to encephalopathy. Subjective hx not possible: pt critical status Exam/Review of Systems Vital Signs Vitals Vital Signs Date Time Temp Pulse Resp B/P Pulse Ox O2 Delivery O2 Flow Rate FiO2 01/17/17 15:00 59 17 93/50 100 Mechanical Ventilator 01/17/17 12:00 98.8 01/17/17 11:42 30 Intake and Output 01/16/17 01/16/17 01/17/17 15:00 23:00 07:00 Intake Total 950 ml 590 ml 340 ml Output Total 250 ml 400 ml Balance 950 ml 340 ml -60 ml Exam Constitutional: frail, non-verbal Psych: confusion Head: atraumatic, normocephalic Eyes: nl conjunctiva, nl lids, nl sclera ENMT: intubated, nl external ears & nose, other (NGT with tube feeds intact) Neck: other (Unable to assess; R IJ permacath with no e/o infection) Respiratory: crackles/rales (few) Cardiovascular: regular rate and rhythm, systolic murmur Gastrointestinal: non-tender, soft Genitourinary - Male: other (condom catheter in place) Musculoskeletal: nl extremities to inspection Extremities: No edema Neurological: lethargic Skin: other (See nurse note for details - stage 3 coccygeal decub), rash or lesions (eschar on plantar aspect of L great toe - dressing c/d/i) Results Result Diagram: 01/17/17 0345 01/17/17 0345 Results 24 hrs Laboratory Tests Test 01/16/17 17:05 01/16/17 20:37 01/17/17 01:25 01/17/17 03:45 Bedside Glucose 177 214 185 White Blood Count 10.2 Red Blood Count 3.12 L Hemoglobin 9.5 L Hematocrit 29.6 L Mean Corpuscular Volume 94.9 Mean Corpuscular Hemoglobin 30.4 Mean Corpuscular Hemoglobin Concent 32.1 Red Cell Distribution Width 13.2 Platelet Count 182 Mean Platelet Volume 10.9 H Neutrophils % 78.5 H Lymphocytes % 11.8 L Monocytes % 8.4 Eosinophils % 0.3 Basophils % 0.2 Nucleated Red Blood Cells % 0.0 Neutrophils # 8.0 H Lymphocytes # 1.2 Monocytes # 0.9 Eosinophils # 0.0 Basophils # 0.0 Nucleated Red Blood Cells # 0.0 Sodium Level 145 H Potassium Level 4.4 Chloride Level 105 Carbon Dioxide Level 27 Anion Gap 17 H Blood Urea Nitrogen 90 H Creatinine 3.20 H Glucose Level 138 Calcium Level 8.5 Total Bilirubin 0.4 Direct Bilirubin 0.00 Indirect Bilirubin 0.4 Aspartate Amino Transf (AST/SGOT) 28 Alanine Aminotransferase (ALT/SGPT) 28 Alkaline Phosphatase 78 Total Protein 7.1 Albumin 4.0 Globulin 3.10 Albumin/Globulin Ratio 1.29 Test 01/17/17 05:38 01/17/17 07:00 01/17/17 09:26 01/17/17 13:29 Bedside Glucose 126 112 208 Blood Gas Specimen Source Blood arterial Arterial Blood Date Drawn 01/17/2017 7:50:51 AM Arterial Blood pH (Temp corrected) 7.450 Arterial Blood pCO2 (Temp correct) 38.2 Arterial Blood pO2 (Temp corrected) 147.6 H Arterial Blood HCO3 26.0 Arterial Blood Base Excess 1.9 Arterial Blood Oxygen Saturation 98.5 H Derek Test ACCEPTAB Arterial Blood Gas Puncture Site Right Radial Arterial Blood Carboxyhemoglobin 0.2 Arterial Blood Methemoglobin 0.2 Blood Gas A-a O2 Differential 21.4 Oxyhemoglobin Percent 98.1 Total Hemoglobin 10.0 L Blood Gas Temperature 37.0 Blood Gas Respiration Rate 16.0 Blood Gas Actual Respiration Rate 16 Blood Gas Modality VENT - AC FiO2 30.0 Blood Gas Tidal Volume 500.0 Blood Gas Low PEEP Setting 5.0 Blood Gas Notified Whom JLD Blood Gas Notified Time 01/17/2017 8:20:33 AM Medications Medications Current Medications Ondansetron HCl (Zofran Inj) 4 mg Q6H PRN IV NAUSEA AND/OR VOMITING Last administered on 12/13/16 01:13; Admin Dose 4 MG; Start 12/02/16 at 22:30 Miscellaneous Information 1 ea NOTE XX ; Start 12/02/16 at 23:00 Glucose (Glutose) 15 gm Q15M PRN PO DECREASED GLUCOSE; Start 12/02/16 at 23:00 Glucose (Glutose) 22.5 gm Q15M PRN PO DECREASED GLUCOSE; Start 12/02/16 at 23: 00 Dextrose (D50w Syringe) 25 ml Q15M PRN IV DECREASED GLUCOSE Last administered on 12/10/16 05:52; Admin Dose 25 ML; Start 12/02/16 at 23:00 Dextrose (D50w Syringe) 50 ml Q15M PRN IV DECREASED GLUCOSE; Start 12/02/16 at 23:00 Glucagon (Glucagen) 1 mg Q15M PRN IM DECREASED GLUCOSE; Start 12/02/16 at 23:00 Glucose (Glutose) 15 gm Q15M PRN BUCCAL DECREASED GLUCOSE; Start 12/02/16 at 23 :00 Gabapentin (Neurontin) 800 mg TID PO Last administered on 12/08/16 20:33; Admin Dose 800 MG; Start 12/03/16 at 09:00; Status Future Hold Benazepril HCl (Lotensin) 10 mg DAILY PO Last administered on 12/07/16 08:26; Admin Dose 10 MG; Start 12/04/16 at 09:00; Status Future Hold Acetaminophen (Tylenol Supp) 650 mg Q6H PRN [place] ELEVATED TEMPERATURE Last administered on 01/13/17 20:32; Admin Dose 650 MG; Start 12/09/16 at 17:00 Hydralazine HCl (Apresoline) 10 mg Q6H PRN IV SBP>150mm hg Last administered on 12/19/16 08:50; Admin Dose 10 MG; Start 12/11/16 at 10:30 Morphine Sulfate (morphine) 2 mg Q2H PRN IV PAIN LEVEL 4-7; Start 12/13/16 at 10 :00 Collagenase 1 applic 1 applic DAILY TOP Last administered on 01/17/17 09:19; Admin Dose 1 APPLIC; Start 01/04/17 at 09:00 Linezolid (Zyvox 600mg/D5W (Pmx)) 300 ml @ 300 mls/hr Q12 IVPB Last administered on 01/17/17 09:14; Admin Dose 300 MLS/HR; Start 01/08/17 at 18:00 Insulin Aspart (Novolog Insulin Pen) NOVOLOG *MODERATE* ALGORI... Q4 SC Last administered on 01/17/17 13:32; Admin Dose 4 UNIT; Start 01/09/17 at 14:15 Diagnostic Test (Pha) 1 ea 1 ea 02 XX Last administered on 01/16/17 02:00; Admin Dose 1 EA; Start 01/10/17 at 02:00 Caspofungin/ Sodium Chloride (Cancidas/NS) 250 ml @ 250 mls/hr Q24H IVPB Last administered on 01/17/17 11:54; Admin Dose 250 MLS/HR; Start 01/13/17 at 09:30 Metoprolol Tartrate (Lopressor) 5 mg Q4 PRN IV FOR H.R>110; Start 01/12/17 at 17:30 Acetaminophen (Tylenol Liquid) 650 mg Q6H PRN NGT PAIN AND OR ELEVATED TEMP; Start 01/13/17 at 23:30 Apixaban (Eliquis) 2.5 mg BID NGT Last administered on 01/17/17 09:18; Admin Dose 2.5 MG; Start 01/13/17 at 21:00 Acetaminophen/ Hydrocodone Bitart ([place] (5/325)) 1 tab Q6H PRN NGT PAIN LEVEL 4-7; Start 01/13/17 at 23:30 Levetiracetam (Keppra Liquid) 1,000 mg DAILY NGT Last administered on 01/17/17 09:17; Admin Dose 1,000 MG; Start 01/14/17 at 09:00 Meclizine HCl (Antivert) 25 mg TID PRN NGT dizziness; Start 01/13/17 at 20:00 Metoprolol Tartrate (Lopressor) 50 mg BID NGT Last administered on 01/17/17 09: 00; Admin Dose 50 MG; Start 01/13/17 at 21:00 Zolpidem Tartrate (Ambien) 5 mg HS PRN NGT INSOMNIA; Start 01/13/17 at 20:00 Aspirin (Aspirin) 81 mg DAILY NGT Last administered on 01/17/17 09:14; Admin Dose 81 MG; Start 01/14/17 at 09:00 Docusate Sodium (Colace Liquid Cup) 100 mg BID NGT Last administered on 09:17; Admin Dose 100 MG; Start 01/13/17 at 21:00 Pantoprazole 40 mg 40 mg DAILY@06 IV Last administered on 01/17/17 05:40; Admin Dose 40 MG; Start 01/14/17 at 06:00 Cefepime HCl (Maxipime 1gm/50 ml (Pmx)) 50 ml @ 100 mls/hr DAILY IVPB Last administered on 01/17/17 09:14; Admin Dose 100 MLS/HR; Start 01/15/17 at 20:00 Amiodarone HCl (Cordarone) 200 mg Q8 NGT ; Start 01/17/17 at 14:00 Insulin Glargine (Lantus) 40 unit DAILY@20 SC ; Start 01/17/17 at 20:00 Procedures Procedures CXR 01/17/2017: Low lung volumes with mildly increased prominence of interstitial markings due to worsening congestive changes and / or vascular crowding. Likely stable small layering right pleural effusion. Possible tiny stable left pleural effusion. Lines and support tubes are unchanged. Ultrasound chest 01/16/2017: Small right pleural effusion. EEG 01/12/2017: This is an abnormal EEG because of burst suppression pattern consistent with severe anoxic brain injury with epileptiform activity. Correlate these findings with the patient's clinical picture. YUMIKO ALATORRE NP Jan 17, 2017 15:50 YUMIKO ALATORRE NP Jan 17, 2017 15:50
[2017-01-17] MEDS: INSULIN GLARGINE [LANtus] 3 ML PEN SC SCH (20:58)
[2017-01-18] VITALS (36 sets, daily range): BP systolic 93–136; BP diastolic 47–62; PULSE 52–67; RESP 13–20
[2017-01-18] MEDS: ALBUTEROL 18 GM INHALER INH SCH ×4 (01:08→20:17)
[2017-01-18] MEDS: INSULIN ASPART [NOVOLOG] 3 ML PEN SC SCH ×6 (01:16→21:02)
[2017-01-18] MEDS: ACCU-CHEK XX SCH (01:17)
[2017-01-18 04:46] LABS: ADD SCAN DIFF NO
[2017-01-18 04:57] LABS: BASOPHILS % 0.1 % (0.0-2.0); EOSINOPHILS # 0.1 10^3/ul (0.0-0.5); EOSINOPHILS % 0.6 % (0.0-7.0); HEMATOCRIT 27.7 % (42.0-52.0); HEMOGLOBIN 8.9 g/dl (14.0-18.0); LYMPHOCYTES # 1.1 10^3/ul (0.8-2.9); LYMPHOCYTES % 11.5 % (15.0-51.0); MEAN CORPUSCULAR HEMOGLOBIN 30.3 pg (29.0-33.0); MEAN CORPUSCULAR HGB CONC 32.1 g/dl (32.0-37.0); MEAN CORPUSCULAR VOLUME 94.2 fl (82.0-101.0); MEAN PLATELET VOLUME 11.1 fl (7.4-10.4); MONOCYTE # 0.8 10^3/ul (0.3-0.9); MONOCYTES % 8.3 % (0.0-11.0); NEUTROPHIL # 7.8 10^3/ul (1.6-7.5); NEUTROPHILS % 78.7 % (39.0-77.0); PLATELET COUNT 157 10^3/UL (140-415); RED BLOOD COUNT 2.94 10^6/ul (4.70-6.10)
[2017-01-18] MEDS: PANTOPRAZOLE 40 MG INJ IV SCH (05:13)
[2017-01-18] MEDS: AMIODARONE 200 MG TAB NGT SCH ×3 (05:13→21:10)
[2017-01-18 05:22] LABS: CREATININE 2.3 mg/dl (0.61-1.24); POTASSIUM 4.1 mmol/L (3.5-5.1)
[2017-01-18] MEDS: CEFEPIME 1GM/50 ML (PMX) 50 ML IVPB SCH (08:43)
[2017-01-18] MEDS: LEVETIRACETAM (100 MG/ML) 5ML CUP NGT SCH (08:53)
[2017-01-18] MEDS: ASPIRIN 81 MG TAB NGT SCH (08:53)
[2017-01-18] MEDS: APIXABAN 5 MG TABLET NGT SCH ×2 (08:53→21:03)
[2017-01-18] MEDS: DOCUSATE SODIUM 10 MG/ML (10ML CUP) NGT SCH ×2 (08:53→21:03)
[2017-01-18] MEDS: METOPROLOL 50 MG TAB NGT SCH ×2 (08:53→21:03)
[2017-01-18] MEDS: COLLAGENASE 30 GM TUBE TOP SCH (09:00)
[2017-01-18] MEDS: LINEZOLID 600 MG/D5W (PMX) 300 ML IVPB SCH ×2 (10:00→21:04)
--- NOTE | 2017-01-18 10:21 | CONS ---
Date/Time of Note Date/Time of Note DATE: 01/18/17 TIME: 10:19 Assessment/Plan Assessment/Plan Additional Assessment/Plan 1. Atrial fibrillation-Having episodes of PAF with reasonable rate control - rate controlled, con't to follow - In SINUS NOW. 2. Hypotension-borderline while on HD currently- well Rx, con't med rx- better controlled 3. Abnormal electrocardiogram with inferolateral T-wave inversions. 4. Respiratory failure-s/p intubation and remains thus- on vent ? trach if family desires 5. Nonhealing toe ulceration-vascular following 6. Peripheral arterial disease by arterial ultrasound of the lower extremities this admission. 7. Diabetes mellitus. 8. Fevers. 9. Positive troponin-downtrended - no intervention planned now 10.Bradycardia-improved/stable- HR stable - INTERMITTENT, hold BB as needed 11.-severe by echo - no intervention planned 12.Cardiomyopathy-EF 40-45% by echo/36% by stress with no ischemia but positive scar. EF <30% by echo post arrest 14.Encephalopathy-anoxic 15. s/p cardiopulmonary arrest 01/08 Consultation Date/Type/Reason Admit Date/Time Dec 02, 2016 at 21:01 Initial Consult Date 12/03/16 Type of Consultation: Infectious Disease Referring Provider: VIET PARKER MD 24 HR Interval Summary Free Text/Dictation NO acute change - BP stable - awaiting dispo per family ROS: No fever, no chills, no nausea, no vomiting, no diarrhea/constipation No recent weight changes No chest pain, no PND, no orthopnea No dizziness, blurred vision No thirst, no heat or cold intolerance (per nurse) Exam/Review of Systems Vital Signs Vitals Vital Signs Date Time Temp Pulse Resp B/P Pulse Ox O2 Delivery O2 Flow Rate FiO2 01/18/17 07:23 59 16 100 30 01/18/17 06:00 99/60 Mechanical Ventilator 01/18/17 04:00 98.9 Intake and Output 01/17/17 01/17/17 01/18/17 15:00 23:00 07:00 Intake Total 1240 ml 840 ml 310 ml Output Total 2210 ml 285 ml 270 ml Balance -970 ml 555 ml 40 ml Exam General: WN/WD/NAD, AOx 0 HEENT: Unicetric/atraumatic/EOMI (does not follow commands) NECK: JVD elevated, no thyromegaly, TRACH Lymph: no lymphadenopathy HEART: regular with no S3, II/ systolic murmur at apex LUNGS: Coarse sounds ABD: soft, NT, ND, +BS : Intact Neuro: non focal SKIN: chronic changes EXT: trace edema Results Result Diagram: 01/18/17 0330 01/18/17 0330 Results 24 hrs Laboratory Tests Test 01/17/17 13:29 01/17/17 17:13 01/17/17 20:33 01/18/17 01:13 Bedside Glucose 208 212 217 206 Test 01/18/17 03:30 01/18/17 04:56 01/18/17 09:01 White Blood Count 10.0 Red Blood Count 2.94 L Hemoglobin 8.9 L Hematocrit 27.7 L Mean Corpuscular Volume 94.2 Mean Corpuscular Hemoglobin 30.3 Mean Corpuscular Hemoglobin Concent 32.1 Red Cell Distribution Width 13.0 Platelet Count 157 Mean Platelet Volume 11.1 H Neutrophils % 78.7 H Lymphocytes % 11.5 L Monocytes % 8.3 Eosinophils % 0.6 Basophils % 0.1 Nucleated Red Blood Cells % 0.0 Neutrophils # 7.8 H Lymphocytes # 1.1 Monocytes # 0.8 Eosinophils # 0.1 Basophils # 0.0 Nucleated Red Blood Cells # 0.0 Sodium Level 142 Potassium Level 4.1 Chloride Level 105 Carbon Dioxide Level 27 Anion Gap 14 Blood Urea Nitrogen 63 H Creatinine 2.30 H Glucose Level 148 Calcium Level 8.0 L Bedside Glucose 154 108 Medications Medications Current Medications Ondansetron HCl (Zofran Inj) 4 mg Q6H PRN IV NAUSEA AND/OR VOMITING Last administered on 12/13/16 01:13; Admin Dose 4 MG; Start 12/02/16 at 22:30 Miscellaneous Information 1 ea NOTE XX ; Start 12/02/16 at 23:00 Glucose (Glutose) 15 gm Q15M PRN PO DECREASED GLUCOSE; Start 12/02/16 at 23:00 Glucose (Glutose) 22.5 gm Q15M PRN PO DECREASED GLUCOSE; Start 12/02/16 at 23: 00 Dextrose (D50w Syringe) 25 ml Q15M PRN IV DECREASED GLUCOSE Last administered on 12/10/16 05:52; Admin Dose 25 ML; Start 12/02/16 at 23:00 Dextrose (D50w Syringe) 50 ml Q15M PRN IV DECREASED GLUCOSE; Start 12/02/16 at 23:00 Glucagon (Glucagen) 1 mg Q15M PRN IM DECREASED GLUCOSE; Start 12/02/16 at 23:00 Glucose (Glutose) 15 gm Q15M PRN BUCCAL DECREASED GLUCOSE; Start 12/02/16 at 23 :00 Gabapentin (Neurontin) 800 mg TID PO Last administered on 12/08/16 20:33; Admin Dose 800 MG; Start 12/03/16 at 09:00; Status Future Hold Benazepril HCl (Lotensin) 10 mg DAILY PO Last administered on 12/07/16 08:26; Admin Dose 10 MG; Start 12/04/16 at 09:00; Status Future Hold Acetaminophen (Tylenol Supp) 650 mg Q6H PRN [place] ELEVATED TEMPERATURE Last administered on 01/13/17 20:32; Admin Dose 650 MG; Start 12/09/16 at 17:00 Hydralazine HCl (Apresoline) 10 mg Q6H PRN IV SBP>150mm hg Last administered on 12/19/16 08:50; Admin Dose 10 MG; Start 12/11/16 at 10:30 Morphine Sulfate (morphine) 2 mg Q2H PRN IV PAIN LEVEL 4-7; Start 12/13/16 at 10 :00 Collagenase 1 applic 1 applic DAILY TOP Last administered on 01/17/17 09:19; Admin Dose 1 APPLIC; Start 01/04/17 at 09:00 Linezolid (Zyvox 600mg/D5W (Pmx)) 300 ml @ 300 mls/hr Q12 IVPB Last administered on 01/18/17 10:00; Admin Dose 300 MLS/HR; Start 01/08/17 at 18:00 Insulin Aspart (Novolog Insulin Pen) NOVOLOG *MODERATE* ALGORI... Q4 SC Last administered on 01/18/17 04:59; Admin Dose 2 UNIT; Start 01/09/17 at 14:15 Diagnostic Test (Pha) 1 ea 1 ea 02 XX Last administered on 01/16/17 02:00; Admin Dose 1 EA; Start 01/10/17 at 02:00 Caspofungin/ Sodium Chloride (Cancidas/NS) 250 ml @ 250 mls/hr Q24H IVPB Last administered on 01/17/17 11:54; Admin Dose 250 MLS/HR; Start 01/13/17 at 09:30 Metoprolol Tartrate (Lopressor) 5 mg Q4 PRN IV FOR H.R>110; Start 01/12/17 at 17:30 Acetaminophen (Tylenol Liquid) 650 mg Q6H PRN NGT PAIN AND OR ELEVATED TEMP; Start 01/13/17 at 23:30 Apixaban (Eliquis) 2.5 mg BID NGT Last administered on 01/18/17 08:53; Admin Dose 2.5 MG; Start 01/13/17 at 21:00 Acetaminophen/ Hydrocodone Bitart ([place] (5/325)) 1 tab Q6H PRN NGT PAIN LEVEL 4-7; Start 01/13/17 at 23:30 Levetiracetam (Keppra Liquid) 1,000 mg DAILY NGT Last administered on 01/18/17 08:53; Admin Dose 1,000 MG; Start 01/14/17 at 09:00 Meclizine HCl (Antivert) 25 mg TID PRN NGT dizziness; Start 01/13/17 at 20:00 Metoprolol Tartrate (Lopressor) 50 mg BID NGT Last administered on 01/17/17 09: 00; Admin Dose 50 MG; Start 01/13/17 at 21:00 Zolpidem Tartrate (Ambien) 5 mg HS PRN NGT INSOMNIA; Start 01/13/17 at 20:00 Aspirin (Aspirin) 81 mg DAILY NGT Last administered on 01/18/17 08:53; Admin Dose 81 MG; Start 01/14/17 at 09:00 Docusate Sodium (Colace Liquid Cup) 100 mg BID NGT Last administered on 08:53; Admin Dose 100 MG; Start 01/13/17 at 21:00 Pantoprazole 40 mg 40 mg DAILY@06 IV Last administered on 01/18/17 05:13; Admin Dose 40 MG; Start 01/14/17 at 06:00 Cefepime HCl (Maxipime 1gm/50 ml (Pmx)) 50 ml @ 100 mls/hr DAILY IVPB Last administered on 01/18/17 08:43; Admin Dose 100 MLS/HR; Start 01/15/17 at 20:00 Amiodarone HCl (Cordarone) 200 mg Q8 NGT Last administered on 01/18/17 05:13; Admin Dose 200 MG; Start 01/17/17 at 14:00 Insulin Glargine (Lantus) 40 unit DAILY@20 SC Last administered on 01/17/17 20: 58; Admin Dose 40 UNIT; Start 01/17/17 at 20:00 DAVE NICOLE MD Jan 18, 2017 10:21
[2017-01-18] MEDS: CASPOFUNGIN 50 MG in SOD CHLORIDE 0.9% 250 ML IVPB SCH (11:12)
--- NOTE | 2017-01-18 11:13 | CONS ---
Date/Time of Note Date/Time of Note DATE: 01/18/17 TIME: 11:11 Assessment/Plan Assessment/Plan Additional Assessment/Plan Ventilator setting; AC of 16, tidal volume 500, PEEP of 5, 30% FiO2. Assessment recommendations; 1. Patient initially admitted for cellulitis then developed respiratory failure due to renal failure was extubated transferred to medical floor with the patient had a cardiac arrest event likely from flash pulmonary edema with resulting severe anoxic brain injury. 2. Renal failure, on hemodialysis. 3. History of hypertension or diabetes. 4. Possibly some element of aspiration pneumonia. 5. Persistently poor mental status. Continue current supportive care. Patient likely would need to have either terminal extubation or tracheostomy and G-tube placed. Prognosis remains poor. Consultation Date/Type/Reason Admit Date/Time Dec 02, 2016 at 21:01 Initial Consult Date 12/03/16 Type of Consultation: Pulmonary/critical care Referring Provider: VIET PARKER MD 24 HR Interval Summary Free Text/Dictation Patient condition remains unchanged. Remains essentially unresponsive. Has remained hemodynamically stable. No untoward events reported. General exam; elderly male, orally intubated, unresponsive. Currently in no distress. Exam/Review of Systems Vital Signs Vitals Vital Signs Date Time Temp Pulse Resp B/P Pulse Ox O2 Delivery O2 Flow Rate FiO2 01/18/17 11:04 63 17 100 30 01/18/17 10:00 130/62 Mechanical Ventilator 01/18/17 08:00 98.5 Intake and Output 01/17/17 01/17/17 01/18/17 15:00 23:00 07:00 Intake Total 1240 ml 840 ml 340 ml Output Total 2210 ml 285 ml 280 ml Balance -970 ml 555 ml 60 ml Exam HEENT examination; supple neck, positive JVD. No lymphadenopathy. Midline trachea. No thyromegaly. Patient is edentulous. Pupils are small bilaterally. Chest examination; clear to auscultation. S1-S2 audible, no murmurs. Regular rhythm. Abdomen examination; soft, no organomegaly. Bowel sounds audible. Nondistended. Extremity examination; no peripheral edema. Pulses 1+ bilaterally. 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 Results Result Diagram: 01/18/17 0330 01/18/17 0330 Results 24 hrs Laboratory Tests Test 01/17/17 13:29 01/17/17 17:13 01/17/17 20:33 01/18/17 01:13 Bedside Glucose 208 212 217 206 Test 01/18/17 03:30 01/18/17 04:56 01/18/17 09:01 White Blood Count 10.0 Red Blood Count 2.94 L Hemoglobin 8.9 L Hematocrit 27.7 L Mean Corpuscular Volume 94.2 Mean Corpuscular Hemoglobin 30.3 Mean Corpuscular Hemoglobin Concent 32.1 Red Cell Distribution Width 13.0 Platelet Count 157 Mean Platelet Volume 11.1 H Neutrophils % 78.7 H Lymphocytes % 11.5 L Monocytes % 8.3 Eosinophils % 0.6 Basophils % 0.1 Nucleated Red Blood Cells % 0.0 Neutrophils # 7.8 H Lymphocytes # 1.1 Monocytes # 0.8 Eosinophils # 0.1 Basophils # 0.0 Nucleated Red Blood Cells # 0.0 Sodium Level 142 Potassium Level 4.1 Chloride Level 105 Carbon Dioxide Level 27 Anion Gap 14 Blood Urea Nitrogen 63 H Creatinine 2.30 H Glucose Level 148 Calcium Level 8.0 L Bedside Glucose 154 108 Medications Medications Current Medications Ondansetron HCl (Zofran Inj) 4 mg Q6H PRN IV NAUSEA AND/OR VOMITING Last administered on 12/13/16 01:13; Admin Dose 4 MG; Start 12/02/16 at 22:30 Miscellaneous Information 1 ea NOTE XX ; Start 12/02/16 at 23:00 Glucose (Glutose) 15 gm Q15M PRN PO DECREASED GLUCOSE; Start 12/02/16 at 23:00 Glucose (Glutose) 22.5 gm Q15M PRN PO DECREASED GLUCOSE; Start 12/02/16 at 23: 00 Dextrose (D50w Syringe) 25 ml Q15M PRN IV DECREASED GLUCOSE Last administered on 12/10/16 05:52; Admin Dose 25 ML; Start 12/02/16 at 23:00 Dextrose (D50w Syringe) 50 ml Q15M PRN IV DECREASED GLUCOSE; Start 12/02/16 at 23:00 Glucagon (Glucagen) 1 mg Q15M PRN IM DECREASED GLUCOSE; Start 12/02/16 at 23:00 Glucose (Glutose) 15 gm Q15M PRN BUCCAL DECREASED GLUCOSE; Start 12/02/16 at 23 :00 Gabapentin (Neurontin) 800 mg TID PO Last administered on 12/08/16 20:33; Admin Dose 800 MG; Start 12/03/16 at 09:00; Status Future Hold Benazepril HCl (Lotensin) 10 mg DAILY PO Last administered on 12/07/16 08:26; Admin Dose 10 MG; Start 12/04/16 at 09:00; Status Future Hold Acetaminophen (Tylenol Supp) 650 mg Q6H PRN [place] ELEVATED TEMPERATURE Last administered on 01/13/17 20:32; Admin Dose 650 MG; Start 12/09/16 at 17:00 Hydralazine HCl (Apresoline) 10 mg Q6H PRN IV SBP>150mm hg Last administered on 12/19/16 08:50; Admin Dose 10 MG; Start 12/11/16 at 10:30 Morphine Sulfate (morphine) 2 mg Q2H PRN IV PAIN LEVEL 4-7; Start 12/13/16 at 10 :00 Collagenase 1 applic 1 applic DAILY TOP Last administered on 01/17/17 09:19; Admin Dose 1 APPLIC; Start 01/04/17 at 09:00 Linezolid (Zyvox 600mg/D5W (Pmx)) 300 ml @ 300 mls/hr Q12 IVPB Last administered on 01/18/17 10:00; Admin Dose 300 MLS/HR; Start 01/08/17 at 18:00 Insulin Aspart (Novolog Insulin Pen) NOVOLOG *MODERATE* ALGORI... Q4 SC Last administered on 01/18/17 04:59; Admin Dose 2 UNIT; Start 01/09/17 at 14:15 Diagnostic Test (Pha) 1 ea 1 ea 02 XX Last administered on 01/16/17 02:00; Admin Dose 1 EA; Start 01/10/17 at 02:00 Caspofungin/ Sodium Chloride (Cancidas/NS) 250 ml @ 250 mls/hr Q24H IVPB Last administered on 01/17/17 11:54; Admin Dose 250 MLS/HR; Start 01/13/17 at 09:30 Metoprolol Tartrate (Lopressor) 5 mg Q4 PRN IV FOR H.R>110; Start 01/12/17 at 17:30 Acetaminophen (Tylenol Liquid) 650 mg Q6H PRN NGT PAIN AND OR ELEVATED TEMP; Start 01/13/17 at 23:30 Apixaban (Eliquis) 2.5 mg BID NGT Last administered on 01/18/17 08:53; Admin Dose 2.5 MG; Start 01/13/17 at 21:00 Acetaminophen/ Hydrocodone Bitart ([place] (5/325)) 1 tab Q6H PRN NGT PAIN LEVEL 4-7; Start 01/13/17 at 23:30 Levetiracetam (Keppra Liquid) 1,000 mg DAILY NGT Last administered on 01/18/17 08:53; Admin Dose 1,000 MG; Start 01/14/17 at 09:00 Meclizine HCl (Antivert) 25 mg TID PRN NGT dizziness; Start 01/13/17 at 20:00 Metoprolol Tartrate (Lopressor) 50 mg BID NGT Last administered on 01/17/17 09: 00; Admin Dose 50 MG; Start 01/13/17 at 21:00 Zolpidem Tartrate (Ambien) 5 mg HS PRN NGT INSOMNIA; Start 01/13/17 at 20:00 Aspirin (Aspirin) 81 mg DAILY NGT Last administered on 01/18/17 08:53; Admin Dose 81 MG; Start 01/14/17 at 09:00 Docusate Sodium (Colace Liquid Cup) 100 mg BID NGT Last administered on 08:53; Admin Dose 100 MG; Start 01/13/17 at 21:00 Pantoprazole 40 mg 40 mg DAILY@06 IV Last administered on 01/18/17 05:13; Admin Dose 40 MG; Start 01/14/17 at 06:00 Cefepime HCl (Maxipime 1gm/50 ml (Pmx)) 50 ml @ 100 mls/hr DAILY IVPB Last administered on 01/18/17 08:43; Admin Dose 100 MLS/HR; Start 01/15/17 at 20:00 Amiodarone HCl (Cordarone) 200 mg Q8 NGT Last administered on 01/18/17 05:13; Admin Dose 200 MG; Start 01/17/17 at 14:00 Insulin Glargine (Lantus) 40 unit DAILY@20 SC Last administered on 01/17/17 20: 58; Admin Dose 40 UNIT; Start 6/5/17 at 20:00 IKE MULLER Jan 18, 2017 11:13
--- NOTE | 2017-01-18 12:43 | SP ---
DATE OF PROCEDURE: 01/17/2017 PROCEDURE PERFORMED: EEG. HISTORY: This is a 66-year-old male with history of cardiorespiratory arrest, has been unresponsive . This is a repeat EEG for followup. CURRENT MEDICATIONS: Keppra. PROCEDURE: Utilizing a 16-channel EEG machine, cap scalp electrodes were applied in accordance wit h the International 10-20 system. [id number] and [id number] montages were displayed. Electri suri impedances were measured and reported. DESCRIPTION: During the resting state, posterior dominant rhythm of about 4 to 5 Hz. Low amplitude waves were seen in bihemispheric distribution with intermittent epileptiform activity noted in bihe mispheric frontal region. Hyperventilation was not performed. Photic stimulation had no response. INTERPRETATION: This is an abnormal EEG due to the presence of generalized bihemispheric background slowing with intermittent epileptiform activity, which is consistent with encephalopathy. Please c orrelate these findings with the patient's clinical picture. Dictated By: DAVON LEHMAN/MICHELLE Conf#: [id number] DID#: [id number]
--- NOTE | 2017-01-18 15:20 | PN ---
DATE: 01/18/2017 SUBJECTIVE: Followup on patient with anoxic encephalopathy. Patient is currently orally intubated o n ventilatory support, status post cardiac arrest. The patient opens eyes. Does not track, does no t follow commands. OBJECTIVE VITAL SIGNS: Temperature is 98.4, pulse is 62, blood pressure 125/58, respiratory rate 17, oxygen s aturation 100% on 30% FIO2. GENERAL: Well-developed, well-nourished male, currently orally intubated on vent support. Opens ey es. Does not follow any commands. HEENT: Head is atraumatic, normocephalic. Pupils sluggishly reactive. LUNGS: Diminished at the bases. Clear in the upper lobes. HEART: Normal S1, S2. Patient has a pansystolic murmur. ABDOMEN: Round, soft, nondistended, nontender. Bowel sounds present. EXTREMITIES: No edema. Pulses are present bilaterally. NEUROLOGIC: No purposeful movement. No withdrawal to any noxious stimuli. EXTREMITIES: Flaccid. LABORATORY AND DIAGNOSTIC DATA: CBC: White blood cells 10.0, hemoglobin 8.9, hematocrit 27.7, plat elets 157. Chemistry: Sodium is 142, potassium 4.1, chloride 105, carbon dioxide 27, anion gap 14, BUN is 63, creatinine 2.3, glucose 148, calcium is 8.0. ASSESSMENT AND PLAN: 1. 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 Dr. Villa is following in neurology consultation. 2. Status post cardiopulmonary arrest on 12/09/2016 and 01/08/2017. Continue supportive care. Con tinue ventilatory support. Dr. Rivera is following in pulmonology consultation. 2. Possible tracheobronchitis versus pneumonia. The patient is currently on antibiotics per infect ious disease. Dr. Wilson's group is following in infectious disease consultation. Patient is curre ntly on cefepime and caspofungin. Sputum cultures are positive for pseudomonas. 3. Acute kidney injury on chronic kidney disease which progressed to end-stage renal disease. Terri ent is currently on hemodialysis. Dr. Remy is following in nephrology consultation. 4. Paroxysmal atrial fibrillation. The patient is continued on aspirin, amiodarone and Eliquis. Kristie Cobian is following in cardiology consultation. 5. Diabetes mellitus type 2. Continue patient's Lantus with NovoLog sliding scale coverage with Ac cu-Cheks q.4h while patient on nasogastric tube feeding. 6. Diabetic foot ulcer. Continue current wound care. 7. Peripheral arterial disease 8. Osteomyelitis of the distal phalanx of the left great toe and left proximal phalanx. Completed a course of antibiotics for osteomyelitis. Further recommendations based on clinical course. Plan of care discussed with Dr. Parker. Dictated By: KIMBERLY NOYOLA ALTERATION MANAGER for VIET PARKER MD SR/NTS Conf#: [id number] DID#: [id number]
--- NOTE | 2017-01-18 15:54 | CONS ---
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 Blood cultures from HD catheter on 12/13/2016 are negative to date. 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 MRI on 12/06/2016 and bone scan on showed 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 and left fourth proximal phalanx. superficial swab grew inna only. At present, no e/o persistent infection - recurrent pleural effusion - s/p right pleural effusion s/p thoracentesis with .9L removed on 12/16/2016; ( Note: there is no pleural fluid cx since orders were placed after Right thoracentesis, and Left thoracentesis was not performed on 12/17/16 d/t insufficient fluid) - funguria - ARANZA on CKD that progressed to ESRD and started on HD from 12/09/2016 - oliguria - improved - A fib -> PAF - small nonreversible perfusion abnormality in the inferoapical and inferior carver; EF 36% per Lexiscan 12/24/2016 - severe , EF 40-45% per TTE 12/17/16 - DM - Hgb A1c 8.7% - HTN associated with DM - recurrent episodes of respiratory failure - acute encephalopathy with anoxic brain injury - stage 3 decubitus ulcer of coccyx without evidence of infection - urinary retention recommendations: - f/u EEG results - family decision - f/u all cxs - continue renally dosed cefepime for pseudomonas (01/15/2017-) - continue linezolid empirically (01/08/2017-), caspofungin empirically (2016-) - will monitor CBC while Pt's on linezolid - Pt completed 6 weeks of antibiotics to treat 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 and left fourth proximal phalanx: 12/03/2016-01/15/2017 (s/p pip/tazo 12/03/16-01/08/17) - continue local wound care of L 1st toe and coccyx Problems: Consultation Date/Type/Reason Admit Date/Time Dec 02, 2016 at 21:01 Type of Consultation: id Referring Provider: VIET PARKER MD Exam/Review of Systems Vital Signs Vitals Vital Signs Date Time Temp Pulse Resp B/P Pulse Ox O2 Delivery O2 Flow Rate FiO2 01/18/17 15:00 64 18 110/51 100 Mechanical Ventilator 01/18/17 13:19 30 01/18/17 12:00 98.4 Intake and Output 01/17/17 01/17/17 01/18/17 15:00 23:00 07:00 Intake Total 1240 ml 840 ml 340 ml Output Total 2210 ml 285 ml 280 ml Balance -970 ml 555 ml 60 ml Exam Constitutional: alert, non-verbal Head: atraumatic, normocephalic Eyes: EOMI Respiratory: clear to auscultation, normal air movement Cardiovascular: regular rate and rhythm Gastrointestinal: non-tender, soft Results Result Diagram: 01/18/17 0330 01/18/17 0330 Results 24 hrs Laboratory Tests Test 01/17/17 17:13 01/17/17 20:33 01/18/17 01:13 01/18/17 03:30 Bedside Glucose 212 217 206 White Blood Count 10.0 Red Blood Count 2.94 L Hemoglobin 8.9 L Hematocrit 27.7 L Mean Corpuscular Volume 94.2 Mean Corpuscular Hemoglobin 30.3 Mean Corpuscular Hemoglobin Concent 32.1 Red Cell Distribution Width 13.0 Platelet Count 157 Mean Platelet Volume 11.1 H Neutrophils % 78.7 H Lymphocytes % 11.5 L Monocytes % 8.3 Eosinophils % 0.6 Basophils % 0.1 Nucleated Red Blood Cells % 0.0 Neutrophils # 7.8 H Lymphocytes # 1.1 Monocytes # 0.8 Eosinophils # 0.1 Basophils # 0.0 Nucleated Red Blood Cells # 0.0 Sodium Level 142 Potassium Level 4.1 Chloride Level 105 Carbon Dioxide Level 27 Anion Gap 14 Blood Urea Nitrogen 63 H Creatinine 2.30 H Glucose Level 148 Calcium Level 8.0 L Test 01/18/17 04:56 01/18/17 09:01 01/18/17 12:53 Bedside Glucose 154 108 175 Medications Medications Current Medications Ondansetron HCl (Zofran Inj) 4 mg Q6H PRN IV NAUSEA AND/OR VOMITING Last administered on 12/13/16 01:13; Admin Dose 4 MG; Start 12/02/16 at 22:30 Miscellaneous Information 1 ea NOTE XX ; Start 12/02/16 at 23:00 Glucose (Glutose) 15 gm Q15M PRN PO DECREASED GLUCOSE; Start 12/02/16 at 23:00 Glucose (Glutose) 22.5 gm Q15M PRN PO DECREASED GLUCOSE; Start 12/02/16 at 23: 00 Dextrose (D50w Syringe) 25 ml Q15M PRN IV DECREASED GLUCOSE Last administered on 12/10/16 05:52; Admin Dose 25 ML; Start 12/02/16 at 23:00 Dextrose (D50w Syringe) 50 ml Q15M PRN IV DECREASED GLUCOSE; Start 12/02/16 at 23:00 Glucagon (Glucagen) 1 mg Q15M PRN IM DECREASED GLUCOSE; Start 12/02/16 at 23:00 Glucose (Glutose) 15 gm Q15M PRN BUCCAL DECREASED GLUCOSE; Start 12/02/16 at 23 :00 Gabapentin (Neurontin) 800 mg TID PO Last administered on 12/08/16 20:33; Admin Dose 800 MG; Start 12/03/16 at 09:00; Status Future Hold Benazepril HCl (Lotensin) 10 mg DAILY PO Last administered on 12/07/16 08:26; Admin Dose 10 MG; Start 12/04/16 at 09:00; Status Future Hold Acetaminophen (Tylenol Supp) 650 mg Q6H PRN [place] ELEVATED TEMPERATURE Last administered on 01/13/17 20:32; Admin Dose 650 MG; Start 12/09/16 at 17:00 Hydralazine HCl (Apresoline) 10 mg Q6H PRN IV SBP>150mm hg Last administered on 12/19/16 08:50; Admin Dose 10 MG; Start 12/11/16 at 10:30 Morphine Sulfate (morphine) 2 mg Q2H PRN IV PAIN LEVEL 4-7; Start 12/13/16 at 10 :00 Collagenase 1 applic 1 applic DAILY TOP Last administered on 01/17/17 09:19; Admin Dose 1 APPLIC; Start 01/04/17 at 09:00 Linezolid (Zyvox 600mg/D5W (Pmx)) 300 ml @ 300 mls/hr Q12 IVPB Last administered on 01/18/17 10:00; Admin Dose 300 MLS/HR; Start 01/08/17 at 18:00 Insulin Aspart (Novolog Insulin Pen) NOVOLOG *MODERATE* ALGORI... Q4 SC Last administered on 01/18/17 12:57; Admin Dose 2 UNIT; Start 01/09/17 at 14:15 Diagnostic Test (Pha) 1 ea 1 ea 02 XX Last administered on 01/16/17 02:00; Admin Dose 1 EA; Start 01/10/17 at 02:00 Caspofungin/ Sodium Chloride (Cancidas/NS) 250 ml @ 250 mls/hr Q24H IVPB Last administered on 01/18/17 11:12; Admin Dose 250 MLS/HR; Start 01/13/17 at 09:30 Metoprolol Tartrate (Lopressor) 5 mg Q4 PRN IV FOR H.R>110; Start 01/12/17 at 17:30 Acetaminophen (Tylenol Liquid) 650 mg Q6H PRN NGT PAIN AND [place] ELEVATED TEMP; Start 01/13/17 at 23:30 Apixaban (Eliquis) 2.5 mg BID NGT Last administered on 01/18/17 08:53; Admin Dose 2.5 MG; Start 01/13/17 at 21:00 Acetaminophen/ Hydrocodone Bitart ([place] (5/325)) 1 tab Q6H PRN NGT PAIN LEVEL 4-7; Start 01/13/17 at 23:30 Levetiracetam (Keppra Liquid) 1,000 mg DAILY NGT Last administered on 01/18/17 08:53; Admin Dose 1,000 MG; Start 01/14/17 at 09:00 Meclizine HCl (Antivert) 25 mg TID PRN NGT dizziness; Start 01/13/17 at 20:00 Metoprolol Tartrate (Lopressor) 50 mg BID NGT Last administered on 01/17/17 09: 00; Admin Dose 50 MG; Start 01/13/17 at 21:00 Zolpidem Tartrate (Ambien) 5 mg HS PRN NGT INSOMNIA; Start 01/13/17 at 20:00 Aspirin (Aspirin) 81 mg DAILY NGT Last administered on 01/18/17 08:53; Admin Dose 81 MG; Start 01/14/17 at 09:00 Docusate Sodium (Colace Liquid Cup) 100 mg BID NGT Last administered on 08:53; Admin Dose 100 MG; Start 01/13/17 at 21:00 Pantoprazole 40 mg 40 mg DAILY@06 IV Last administered on 01/18/17 05:13; Admin Dose 40 MG; Start 01/14/17 at 06:00 Cefepime HCl (Maxipime 1gm/50 ml (Pmx)) 50 ml @ 100 mls/hr DAILY IVPB Last administered on 01/18/17 08:43; Admin Dose 100 MLS/HR; Start 01/15/17 at 20:00 Amiodarone HCl (Cordarone) 200 mg Q8 NGT Last administered on 01/18/17 14:59; Admin Dose 200 MG; Start 01/17/17 at 14:00 Insulin Glargine (Lantus) 40 unit DAILY@20 SC Last administered on 01/17/17 20: 58; Admin Dose 40 UNIT; Start 01/17/17 at 20:00 NIKHIL RAM MD Jan 18, 2017 15:54
[2017-01-18] MEDS: INSULIN GLARGINE [LANtus] 3 ML PEN SC SCH (21:01)
--- NOTE | 2017-01-18 21:23 | CONS ---
Date/Time of Note Date/Time of Note DATE: 01/18/17 TIME: 21:21 Assessment/Plan Assessment/Plan Additional Assessment/Plan -S/p cardiopulmonary arrest on 12/09/2016 and on 01/08/2017 - 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 Blood cultures from HD catheter on 12/13/2016 are negative to date. 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 MRI on 12/06/2016 and bone scan on showed 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 and left fourth proximal phalanx. superficial swab grew inna only - s/p right pleural effusion s/p thoracentesis with .9L removed on 12/16/2016 - severe , EF 40-45% per TTE 12/17/16 - DM - Hgb A1c 8.7% - HTN associated with DM Plan: Plan for HD tomorrow S/p EEG showed epileptiform activity- stared on keppra by Neurology - poor prognosis for meaningful recovery as per Neurology S/P family metting on 01/16/17- Full Code- another family meeting tomorrow pt has severe , very labile BP sometimes with HD will continue to follow up on patient and continue HD until family makes some decision, D/w with today at bedside with [employer] bone crusher- she wants to continue HD as of now Consultation Date/Type/Reason Admit Date/Time Dec 02, 2016 at 21:01 Initial Consult Date Type of Consultation: NEPHROLOGY Referring Provider: VIET PARKER MD 24 HR Interval Summary Free Text/Dictation pt doing ok, remains intubated on ventilator, no plan for HD today Exam/Review of Systems Vital Signs Vitals Vital Signs Date Time Temp Pulse Resp B/P Pulse Ox O2 Delivery O2 Flow Rate FiO2 01/18/17 21:16 59 16 100 30 01/18/17 18:00 113/56 Mechanical Ventilator 01/18/17 16:00 98.7 Intake and Output 01/17/17 01/17/17 01/18/17 14:59 22:59 06:59 Intake Total 1290 ml 840 ml 340 ml Output Total 2210 ml 255 ml 320 ml Balance -920 ml 585 ml 20 ml Results Result Diagram: 01/18/17 0330 01/18/17 0330 Results 24 hrs Laboratory Tests Test 01/18/17 01:13 01/18/17 03:30 01/18/17 04:56 01/18/17 09:01 Bedside Glucose 206 154 108 White Blood Count 10.0 Red Blood Count 2.94 L Hemoglobin 8.9 L Hematocrit 27.7 L Mean Corpuscular Volume 94.2 Mean Corpuscular Hemoglobin 30.3 Mean Corpuscular Hemoglobin Concent 32.1 Red Cell Distribution Width 13.0 Platelet Count 157 Mean Platelet Volume 11.1 H Neutrophils % 78.7 H Lymphocytes % 11.5 L Monocytes % 8.3 Eosinophils % 0.6 Basophils % 0.1 Nucleated Red Blood Cells % 0.0 Neutrophils # 7.8 H Lymphocytes # 1.1 Monocytes # 0.8 Eosinophils # 0.1 Basophils # 0.0 Nucleated Red Blood Cells # 0.0 Sodium Level 142 Potassium Level 4.1 Chloride Level 105 Carbon Dioxide Level 27 Anion Gap 14 Blood Urea Nitrogen 63 H Creatinine 2.30 H Glucose Level 148 Calcium Level 8.0 L Test 01/18/17 12:53 01/18/17 17:17 01/18/17 20:56 Bedside Glucose 175 165 172 Medications Medications Current Medications Ondansetron HCl (Zofran Inj) 4 mg Q6H PRN IV NAUSEA AND/OR VOMITING Last administered on 12/13/16 01:13; Admin Dose 4 MG; Start 12/02/16 at 22:30 Miscellaneous Information 1 ea NOTE XX ; Start 12/02/16 at 23:00 Glucose (Glutose) 15 gm Q15M PRN PO DECREASED GLUCOSE; Start 12/02/16 at 23:00 Glucose (Glutose) 22.5 gm Q15M PRN PO DECREASED GLUCOSE; Start 12/02/16 at 23: 00 Dextrose (D50w Syringe) 25 ml Q15M PRN IV DECREASED GLUCOSE Last administered on 12/10/16 05:52; Admin Dose 25 ML; Start 12/02/16 at 23:00 Dextrose (D50w Syringe) 50 ml Q15M PRN IV DECREASED GLUCOSE; Start 12/02/16 at 23:00 Glucagon (Glucagen) 1 mg Q15M PRN IM DECREASED GLUCOSE; Start 12/02/16 at 23:00 Glucose (Glutose) 15 gm Q15M PRN BUCCAL DECREASED GLUCOSE; Start 12/02/16 at 23 :00 Gabapentin (Neurontin) 800 mg TID PO Last administered on 12/08/16 20:33; Admin Dose 800 MG; Start 12/03/16 at 09:00; Status Future Hold Benazepril HCl (Lotensin) 10 mg DAILY PO Last administered on 12/07/16 08:26; Admin Dose 10 MG; Start 12/04/16 at 09:00; Status Future Hold Acetaminophen (Tylenol Supp) 650 mg Q6H PRN [place] ELEVATED TEMPERATURE Last administered on 01/13/17 20:32; Admin Dose 650 MG; Start 12/09/16 at 17:00 Hydralazine HCl (Apresoline) 10 mg Q6H PRN IV SBP>150mm hg Last administered on 12/19/16 08:50; Admin Dose 10 MG; Start 12/11/16 at 10:30 Morphine Sulfate (morphine) 2 mg Q2H PRN IV PAIN LEVEL 4-7; Start 12/13/16 at 10 :00 Collagenase 1 applic 1 applic DAILY TOP Last administered on 01/17/17 09:19; Admin Dose 1 APPLIC; Start 01/04/17 at 09:00 Linezolid (Zyvox 600mg/D5W (Pmx)) 300 ml @ 300 mls/hr Q12 IVPB Last administered on 01/18/17 21:04; Admin Dose 300 MLS/HR; Start 01/08/17 at 18:00 Insulin Aspart (Novolog Insulin Pen) NOVOLOG *MODERATE* ALGORI... Q4 SC Last administered on 01/18/17 21:02; Admin Dose 2 UNIT; Start 01/09/17 at 14:15 Diagnostic Test (Pha) 1 ea 1 ea 02 XX Last administered on 01/16/17 02:00; Admin Dose 1 EA; Start 01/10/17 at 02:00 Caspofungin/ Sodium Chloride (Cancidas/NS) 250 ml @ 250 mls/hr Q24H IVPB Last administered on 01/18/17 11:12; Admin Dose 250 MLS/HR; Start 01/13/17 at 09:30 Metoprolol Tartrate (Lopressor) 5 mg Q4 PRN IV FOR H.R>110; Start 01/12/17 at 17:30 Acetaminophen (Tylenol Liquid) 650 mg Q6H PRN NGT PAIN AND OR ELEVATED TEMP; Start 01/13/17 at 23:30 Apixaban (Eliquis) 2.5 mg BID NGT Last administered on 01/18/17 21:03; Admin Dose 2.5 MG; Start 01/13/17 at 21:00 Acetaminophen/ Hydrocodone Bitart ([place] (5/325)) 1 tab Q6H PRN NGT PAIN LEVEL 4-7; Start 01/13/17 at 23:30 Levetiracetam (Keppra Liquid) 1,000 mg DAILY NGT Last administered on 01/18/17 08:53; Admin Dose 1,000 MG; Start 01/14/17 at 09:00 Meclizine HCl (Antivert) 25 mg TID PRN NGT dizziness; Start 01/13/17 at 20:00 Metoprolol Tartrate (Lopressor) 50 mg BID NGT Last administered on 01/18/17 21: 03; Admin Dose 50 MG; Start 01/13/17 at 21:00 Zolpidem Tartrate (Ambien) 5 mg HS PRN NGT INSOMNIA; Start 01/13/17 at 20:00 Aspirin (Aspirin) 81 mg DAILY NGT Last administered on 01/18/17 08:53; Admin Dose 81 MG; Start 01/14/17 at 09:00 Docusate Sodium (Colace Liquid Cup) 100 mg BID NGT Last administered on 21:03; Admin Dose 100 MG; Start 01/13/17 at 21:00 Pantoprazole 40 mg 40 mg DAILY@06 IV Last administered on 01/18/17 05:13; Admin Dose 40 MG; Start 01/14/17 at 06:00 Cefepime HCl (Maxipime 1gm/50 ml (Pmx)) 50 ml @ 100 mls/hr DAILY IVPB Last administered on 01/18/17 08:43; Admin Dose 100 MLS/HR; Start 01/15/17 at 20:00 Amiodarone HCl (Cordarone) 200 mg Q8 NGT Last administered on 01/18/17 14:59; Admin Dose 200 MG; Start 01/17/17 at 14:00 Insulin Glargine (Lantus) 40 unit DAILY@20 SC Last administered on 01/18/17 21: 01; Admin Dose 40 UNIT; Start 01/17/17 at 20:00 TASHIA MCGARRY MD Jan 18, 2017 21:23
[2017-01-19] VITALS (57 sets, daily range): BP systolic 87–141; BP diastolic 39–71; PULSE 55–101; RESP 14–23
--- NOTE | 2017-01-19 | PN ---
Date/Time of Note Date/Time of Note DATE: 01/19/17 TIME: 00:00 Assessment/Plan Lines/Catheters IV Catheter Type (from Nrs): Saline [place] in Place (from Nrsg): No Assessment/Plan Problems: (1) Non-pressure chronic ulcer of other part of left foot with fat layer exposed (2) Peripheral vascular disease (3) Diabetes, polyneuropathy Assessment/Plan Continue daily dressing change. Continue heel elevation. Will be followed in- house. Subjective 24 Hr Interval Summary Patient was seen at bedside. Patient is in no acute distress. Patient is intubated in the ICU. Dressing is intact of the left big toe. Exam/Review of Systems Vital Signs Vitals Vital Signs Date Time Temp Pulse Resp B/P Pulse Ox O2 Delivery O2 Flow Rate FiO2 01/29/17 13:30 60 16 100 30 01/29/17 13:00 101/49 Mechanical Ventilator 01/29/17 12:00 98.5 Intake and Output 01/28/17 01/28/17 01/29/17 15:00 23:00 07:00 Intake Total 590 ml 290 ml 340 ml Output Total 2800 ml 200 ml Balance -2210 ml 90 ml 340 ml Exam Free Text/Dictation Laying supine in bed. Intubated. Left hallux is dry on the plantar aspect with hyperkeratosis. No sign of infection and no open wound present. Palpable pulses noted bilateral feet. Contracted toes present. Labs reviewed. Results Result Diagram: 01/29/17 0425 01/29/17 0425 YEIMI LIZARRAGA DPM Jan 19, 2017 00:00
[2017-01-19] MEDS: INSULIN ASPART [NOVOLOG] 3 ML PEN SC SCH ×6 (01:22→21:21)
[2017-01-19] MEDS: ACCU-CHEK XX SCH (01:23)
[2017-01-19] MEDS: ALBUTEROL 18 GM INHALER INH SCH ×4 (01:50→19:37)
[2017-01-19] MEDS: PANTOPRAZOLE 40 MG INJ IV SCH (05:07)
[2017-01-19] MEDS: AMIODARONE 200 MG TAB NGT SCH ×3 (05:08→22:00)
[2017-01-19 06:04] LABS: ADD SCAN DIFF NO
[2017-01-19 06:08] LABS: BASOPHILS % 0.2 % (0.0-2.0); EOSINOPHILS # 0.1 10^3/ul (0.0-0.5); EOSINOPHILS % 0.9 % (0.0-7.0); HEMATOCRIT 25.9 % (42.0-52.0); HEMOGLOBIN 8.5 g/dl (14.0-18.0); LYMPHOCYTES # 1.2 10^3/ul (0.8-2.9); LYMPHOCYTES % 10.4 % (15.0-51.0); MEAN CORPUSCULAR HEMOGLOBIN 30.5 pg (29.0-33.0); MEAN CORPUSCULAR HGB CONC 32.8 g/dl (32.0-37.0); MEAN CORPUSCULAR VOLUME 92.8 fl (82.0-101.0); MEAN PLATELET VOLUME 10.8 fl (7.4-10.4); MONOCYTE # 0.9 10^3/ul (0.3-0.9); MONOCYTES % 7.8 % (0.0-11.0); NEUTROPHIL # 9.2 10^3/ul (1.6-7.5); NEUTROPHILS % 80.1 % (39.0-77.0); PLATELET COUNT 155 10^3/UL (140-415); RED BLOOD COUNT 2.79 10^6/ul (4.70-6.10); WHITE BLOOD COUNT 11.4 10^3/ul (4.8-10.8)
[2017-01-19 06:30] LABS: CALCIUM 8.3 mg/dl (8.4-10.2); CREATININE 2.39 mg/dl (0.61-1.24)
[2017-01-19] MEDS: CEFEPIME 1GM/50 ML (PMX) 50 ML IVPB SCH (08:42)
[2017-01-19] MEDS: LEVETIRACETAM (100 MG/ML) 5ML CUP NGT SCH (08:46)
[2017-01-19] MEDS: DOCUSATE SODIUM 10 MG/ML (10ML CUP) NGT SCH ×2 (08:46→21:22)
[2017-01-19] MEDS: APIXABAN 5 MG TABLET NGT SCH ×2 (08:46→21:22)
[2017-01-19] MEDS: ASPIRIN 81 MG TAB NGT SCH (08:46)
[2017-01-19] MEDS: METOPROLOL 50 MG TAB NGT SCH (08:47)
[2017-01-19] MEDS: COLLAGENASE 30 GM TUBE TOP SCH (08:49)
--- NOTE | 2017-01-19 10:14 | CONS ---
Date/Time of Note Date/Time of Note DATE: 01/19/17 TIME: 10:11 Assessment/Plan Assessment/Plan Chief Complaint/Hosp Course IMPRESSION: 1. Atrial fibrillation-Having episodes of PAF with reasonable rate control 2. Hypotension-borderline while on HD currently 3. Abnormal electrocardiogram with inferolateral T-wave inversions. 4. Respiratory failure-s/p intubation and remains thus 5. Nonhealing toe ulceration-vascular following 6. Peripheral arterial disease by arterial ultrasound of the lower extremities this admission. 7. Diabetes mellitus. 8. Fevers. 9. Positive troponin-downtrended 10.Bradycardia-improved/stable 11.-severe by echo 12.Cardiomyopathy-EF 40-45% by echo/36% by stress with no ischemia but positive scar. EF <30% by echo post arrest 14.Encephalopathy-anoxic 15. s/p cardiopulmonary arrest 01/08 Recc: -Tele -serial ecg -HD for volume removal as tolerated -Continue baby asa/eliquis -Continue PO amio in attempt to maintain SR -Continue BB as tolerated only following HR/BP closely and thus will decrease dose given marginal BP -Will hold on afterload reduction given severe and thus fixed afterload at valve orifice -Wean vent as possible/tolerated Problems: Consultation Date/Type/Reason Admit Date/Time Dec 02, 2016 at 21:01 Initial Consult Date 12/03/16 Type of Consultation: Cardiology Reason for Consultation PAF/cardiomyopathy/ Referring Provider: VIET PARKER MD Exam/Review of Systems Vital Signs Vitals Vital Signs Date Time Temp Pulse Resp B/P Pulse Ox O2 Delivery O2 Flow Rate FiO2 01/19/17 08:00 78 01/19/17 08:00 97.6 17 87/56 100 Mechanical Ventilator 01/19/17 05:48 30 Intake and Output 01/18/17 01/18/17 01/19/17 15:00 23:00 07:00 Intake Total 1090 ml 140 ml 960 ml Output Total 285 ml 100 ml 600 ml Balance 805 ml 40 ml 360 ml Exam Review of Systems: CONSTITUTIONAL: No fevers, chills. PULMONARY: intubated CARDIOVASCULAR: No obvious chest pain/palpitations GASTROINTESTINAL: No nausea/vomiting. GENITOURINARY: No hematuria/dysuria. MUSCULOSKELETAL: No obvious myagias/arthalgias. PSYCHIATRIC: No documented depression. NEUROLOGIC: Encephalopathic Constitutional: alert Psych: no complaints Head: normocephalic ENMT: mucosa pink and moist Neck: jvd (9 cm water), supple Respiratory: diminished breath sounds (at bases/B) Cardiovascular: regular rate and rhythm Gastrointestinal: non-tender, soft Musculoskeletal: muscle tone (normal) Extremities: edema (none) Neurological: other (No focal deficits) Results Result Diagram: 01/19/17 0500 01/19/17 0500 Results 24 hrs Laboratory Tests Test 01/18/17 12:53 01/18/17 17:17 01/18/17 20:56 01/19/17 01:18 Bedside Glucose 175 165 172 158 Test 01/19/17 05:00 01/19/17 05:07 01/19/17 08:59 White Blood Count 11.4 H Red Blood Count 2.79 L Hemoglobin 8.5 L Hematocrit 25.9 L Mean Corpuscular Volume 92.8 Mean Corpuscular Hemoglobin 30.5 Mean Corpuscular Hemoglobin Concent 32.8 Red Cell Distribution Width 13.0 Platelet Count 155 Mean Platelet Volume 10.8 H Neutrophils % 80.1 H Lymphocytes % 10.4 L Monocytes % 7.8 Eosinophils % 0.9 Basophils % 0.2 Nucleated Red Blood Cells % 0.0 Neutrophils # 9.2 H Lymphocytes # 1.2 Monocytes # 0.9 Eosinophils # 0.1 Basophils # 0.0 Nucleated Red Blood Cells # 0.0 Sodium Level 144 Potassium Level 4.0 Chloride Level 105 Carbon Dioxide Level 32 H Anion Gap 11 Blood Urea Nitrogen 72 H Creatinine 2.39 H Glucose Level 83 # Calcium Level 8.3 L Bedside Glucose 91 155 Medications Medications Current Medications Ondansetron HCl (Zofran Inj) 4 mg Q6H PRN IV NAUSEA AND/OR VOMITING Last administered on 12/13/16 01:13; Admin Dose 4 MG; Start 12/02/16 at 22:30 Miscellaneous Information 1 ea NOTE XX ; Start 12/02/16 at 23:00 Glucose (Glutose) 15 gm Q15M PRN PO DECREASED GLUCOSE; Start 12/02/16 at 23:00 Glucose (Glutose) 22.5 gm Q15M PRN PO DECREASED GLUCOSE; Start 12/02/16 at 23: 00 Dextrose (D50w Syringe) 25 ml Q15M PRN IV DECREASED GLUCOSE Last administered on 12/10/16 05:52; Admin Dose 25 ML; Start 12/02/16 at 23:00 Dextrose (D50w Syringe) 50 ml Q15M PRN IV DECREASED GLUCOSE; Start 12/02/16 at 23:00 Glucagon (Glucagen) 1 mg Q15M PRN IM DECREASED GLUCOSE; Start 12/02/16 at 23:00 Glucose (Glutose) 15 gm Q15M PRN BUCCAL DECREASED GLUCOSE; Start 12/02/16 at 23 :00 Gabapentin (Neurontin) 800 mg TID PO Last administered on 12/08/16 20:33; Admin Dose 800 MG; Start 12/03/16 at 09:00; Status Future Hold Benazepril HCl (Lotensin) 10 mg DAILY PO Last administered on 12/07/16 08:26; Admin Dose 10 MG; Start 12/04/16 at 09:00; Status Future Hold Acetaminophen (Tylenol Supp) 650 mg Q6H PRN [place] ELEVATED TEMPERATURE Last administered on 01/13/17 20:32; Admin Dose 650 MG; Start 12/09/16 at 17:00 Hydralazine HCl (Apresoline) 10 mg Q6H PRN IV SBP>150mm hg Last administered on 12/19/16 08:50; Admin Dose 10 MG; Start 12/11/16 at 10:30 Morphine Sulfate (morphine) 2 mg Q2H PRN IV PAIN LEVEL 4-7; Start 12/13/16 at 10 :00 Collagenase 1 applic 1 applic DAILY TOP Last administered on 01/17/17 09:19; Admin Dose 1 APPLIC; Start 01/04/17 at 09:00 Linezolid (Zyvox 600mg/D5W (Pmx)) 300 ml @ 300 mls/hr Q12 IVPB Last administered on 01/18/17 21:04; Admin Dose 300 MLS/HR; Start 01/08/17 at 18:00 Insulin Aspart (Novolog Insulin Pen) NOVOLOG *MODERATE* [place]GORI... Q4 SC Last administered on 01/19/17 09:03; Admin Dose 2 UNIT; Start 01/09/17 at 14:15 Diagnostic Test (Pha) 1 ea 1 ea 02 XX Last administered on 01/16/17 02:00; Admin Dose 1 EA; Start 01/10/17 at 02:00 Caspofungin/ Sodium Chloride (Cancidas/NS) 250 ml @ 250 mls/hr Q24H IVPB Last administered on 01/18/17 11:12; Admin Dose 250 MLS/HR; Start 01/13/17 at 09:30 Metoprolol Tartrate (Lopressor) 5 mg Q4 PRN IV FOR H.R>110; Start 01/12/17 at 17:30 Acetaminophen (Tylenol Liquid) 650 mg Q6H PRN NGT PAIN AND OR ELEVATED TEMP; Start 01/13/17 at 23:30 Apixaban (Eliquis) 2.5 mg BID NGT Last administered on 01/19/17 08:46; Admin Dose 2.5 MG; Start 01/13/17 at 21:00 Acetaminophen/ Hydrocodone Bitart ([place] (5/325)) 1 tab Q6H PRN NGT PAIN LEVEL 4-7; Start 01/13/17 at 23:30 Levetiracetam (Keppra Liquid) 1,000 mg DAILY NGT Last administered on 01/19/17 08:46; Admin Dose 1,000 MG; Start 01/14/17 at 09:00 Meclizine HCl (Antivert) 25 mg TID PRN NGT dizziness; Start 01/13/17 at 20:00 Metoprolol Tartrate (Lopressor) 50 mg BID NGT Last administered on 01/18/17 21: 03; Admin Dose 50 MG; Start 01/13/17 at 21:00 Zolpidem Tartrate (Ambien) 5 mg HS PRN NGT INSOMNIA; Start 01/13/17 at 20:00 Aspirin (Aspirin) 81 mg DAILY NGT Last administered on 01/19/17 08:46; Admin Dose 81 MG; Start 01/14/17 at 09:00 Docusate Sodium (Colace Liquid Cup) 100 mg BID NGT Last administered on 08:46; Admin Dose 100 MG; Start 01/13/17 at 21:00 Pantoprazole 40 mg 40 mg DAILY@06 IV Last administered on 01/19/17 05:07; Admin Dose 40 MG; Start 01/14/17 at 06:00 Cefepime HCl (Maxipime 1gm/50 ml (Pmx)) 50 ml @ 100 mls/hr DAILY IVPB Last administered on 01/19/17 08:42; Admin Dose 100 MLS/HR; Start 01/15/17 at 20:00 Amiodarone HCl (Cordarone) 200 mg Q8 NGT Last administered on 01/18/17 14:59; Admin Dose 200 MG; Start 01/17/17 at 14:00 Insulin Glargine (Lantus) 40 unit DAILY@20 SC Last administered on 01/18/17 21: 01; Admin Dose 40 UNIT; Start 01/17/17 at 20:00 VICENTE LESLIE Jan 19, 2017 10:14
[2017-01-19] MEDS: LINEZOLID 600 MG/D5W (PMX) 300 ML IVPB SCH ×2 (10:34→21:26)
--- NOTE | 2017-01-19 10:52 | CONS ---
Date/Time of Note Date/Time of Note DATE: 01/19/17 TIME: 10:50 Assessment/Plan Assessment/Plan Additional Assessment/Plan Ventilator setting; AC of 16, tidal volume 500, PEEP of 5, 30% FiO2. Assessment recommendations; 1. Patient admitted again to ICU for recurrent respiratory failure this time likely from flash pulmonary edema, status post CPR with likely resulting post anoxic brain injury. 2. Renal failure, on hemodialysis. 3. Peripheral vascular disease with lower extremity cellulitis. 4. History of hypertension and diabetes. Continue current treatment. Patient likely would need to have a tracheostomy performed. Prognosis remains poor. Consultation Date/Type/Reason Admit Date/Time Dec 02, 2016 at 21:01 Initial Consult Date 12/03/16 Type of Consultation: Pulmonary/critical care Referring Provider: VIET PARKER MD 24 HR Interval Summary Free Text/Dictation Patient condition remains critical but stable. Remains profoundly unresponsive. Has remained hemodynamically stable. No untoward events reported. General exam; elderly male, on ventilator, orally intubated. Unresponsive. Exam/Review of Systems Vital Signs Vitals Vital Signs Date Time Temp Pulse Resp B/P Pulse Ox O2 Delivery O2 Flow Rate FiO2 01/19/17 08:00 78 01/19/17 08:00 97.6 17 87/56 100 Mechanical Ventilator 01/19/17 05:48 30 Intake and Output 01/18/17 01/18/17 01/19/17 15:00 23:00 07:00 Intake Total 1090 ml 140 ml 960 ml Output Total 285 ml 100 ml 600 ml Balance 805 ml 40 ml 360 ml Exam HEENT examination; supple neck, no JVD. No lymphadenopathy. Midline trachea. No thyromegaly. Orally intubated. Patient is edentulous. Pupils are small bilaterally. Chest examination; diminished but clear breath sound. S1-S2 audible, no murmurs. Regular rhythm. Abdomen examination; soft, no organomegaly. Bowel sounds audible. Abdomen is nondistended. Extremity examination; no peripheral edema. [employer] examination; patient remains unresponsive. Results Result Diagram: 01/19/17 0500 01/19/17 0500 Results 24 hrs Laboratory Tests Test 01/18/17 12:53 01/18/17 17:17 01/18/17 20:56 01/19/17 01:18 Bedside Glucose 175 165 172 158 Test 01/19/17 05:00 01/19/17 05:07 01/19/17 08:59 White Blood Count 11.4 H Red Blood Count 2.79 L Hemoglobin 8.5 L Hematocrit 25.9 L Mean Corpuscular Volume 92.8 Mean Corpuscular Hemoglobin 30.5 Mean Corpuscular Hemoglobin Concent 32.8 Red Cell Distribution Width 13.0 Platelet Count 155 Mean Platelet Volume 10.8 H Neutrophils % 80.1 H Lymphocytes % 10.4 L Monocytes % 7.8 Eosinophils % 0.9 Basophils % 0.2 Nucleated Red Blood Cells % 0.0 Neutrophils # 9.2 H Lymphocytes # 1.2 Monocytes # 0.9 Eosinophils # 0.1 Basophils # 0.0 Nucleated Red Blood Cells # 0.0 Sodium Level 144 Potassium Level 4.0 Chloride Level 105 Carbon Dioxide Level 32 H Anion Gap 11 Blood Urea Nitrogen 72 H Creatinine 2.39 H Glucose Level 83 # Calcium Level 8.3 L Bedside Glucose 91 155 Medications Medications Current Medications Ondansetron HCl (Zofran Inj) 4 mg Q6H PRN IV NAUSEA AND/OR VOMITING Last administered on 12/13/16 01:13; Admin Dose 4 MG; Start 12/02/16 at 22:30 Miscellaneous Information 1 ea NOTE XX ; Start 12/02/16 at 23:00 Glucose (Glutose) 15 gm Q15M PRN PO DECREASED GLUCOSE; Start 12/02/16 at 23:00 Glucose (Glutose) 22.5 gm Q15M PRN PO DECREASED GLUCOSE; Start 12/02/16 at 23: 00 Dextrose (D50w Syringe) 25 ml Q15M PRN IV DECREASED GLUCOSE Last administered on 12/10/16 05:52; Admin Dose 25 ML; Start 12/02/16 at 23:00 Dextrose (D50w Syringe) 50 ml Q15M PRN IV DECREASED GLUCOSE; Start 12/02/16 at 23:00 Glucagon (Glucagen) 1 mg Q15M PRN IM DECREASED GLUCOSE; Start 12/02/16 at 23:00 Glucose (Glutose) 15 gm Q15M PRN BUCCAL DECREASED GLUCOSE; Start 12/02/16 at 23 :00 Gabapentin (Neurontin) 800 mg TID PO Last administered on 12/08/16 20:33; Admin Dose 800 MG; Start 12/03/16 at 09:00; Status Future Hold Benazepril HCl (Lotensin) 10 mg DAILY PO Last administered on 12/07/16 08:26; Admin Dose 10 MG; Start 12/04/16 at 09:00; Status Future Hold Acetaminophen (Tylenol Supp) 650 mg Q6H PRN [place] ELEVATED TEMPERATURE Last administered on 01/13/17 20:32; Admin Dose 650 MG; Start 12/09/16 at 17:00 Hydralazine HCl (Apresoline) 10 mg Q6H PRN IV SBP>150mm hg Last administered on 12/19/16 08:50; Admin Dose 10 MG; Start 12/11/16 at 10:30 Morphine Sulfate (morphine) 2 mg Q2H PRN IV PAIN LEVEL 4-7; Start 12/13/16 at 10 :00 Collagenase 1 applic 1 applic DAILY TOP Last administered on 01/17/17 09:19; Admin Dose 1 APPLIC; Start 01/04/17 at 09:00 Linezolid (Zyvox 600mg/D5W (Pmx)) 300 ml @ 300 mls/hr Q12 IVPB Last administered on 01/19/17 10:34; Admin Dose 300 MLS/HR; Start 01/08/17 at 18:00 Insulin Aspart (Novolog Insulin Pen) NOVOLOG *MODERATE* ALGORI... Q4 SC Last administered on 01/19/17 09:03; Admin Dose 2 UNIT; Start 01/09/17 at 14:15 Diagnostic Test (Pha) 1 ea 1 ea 02 XX Last administered on 01/16/17 02:00; Admin Dose 1 EA; Start 01/10/17 at 02:00 Caspofungin/ Sodium Chloride (Cancidas/NS) 250 ml @ 250 mls/hr Q24H IVPB Last administered on 01/18/17 11:12; Admin Dose 250 MLS/HR; Start 01/13/17 at 09:30 Metoprolol Tartrate (Lopressor) 5 mg Q4 PRN IV FOR H.R>110; Start 01/12/17 at 17:30 Acetaminophen (Tylenol Liquid) 650 mg Q6H PRN NGT PAIN AND [place] ELEVATED TEMP; Start 01/13/17 at 23:30 Apixaban (Eliquis) 2.5 mg BID NGT Last administered on 01/19/17 08:46; Admin Dose 2.5 MG; Start 01/13/17 at 21:00 Acetaminophen/ Hydrocodone Bitart ([place] (5/325)) 1 tab Q6H PRN NGT PAIN LEVEL 4-7; Start 01/13/17 at 23:30 Levetiracetam (Keppra Liquid) 1,000 mg DAILY NGT Last administered on 01/19/17 08:46; Admin Dose 1,000 MG; Start 01/14/17 at 09:00 Meclizine HCl (Antivert) 25 mg TID PRN NGT dizziness; Start 01/13/17 at 20:00 Zolpidem Tartrate (Ambien) 5 mg HS PRN NGT INSOMNIA; Start 01/13/17 at 20:00 Aspirin (Aspirin) 81 mg DAILY NGT Last administered on 01/19/17 08:46; Admin Dose 81 MG; Start 01/14/17 at 09:00 Docusate Sodium (Colace Liquid Cup) 100 mg BID NGT Last administered on 08:46; Admin Dose 100 MG; Start 01/13/17 at 21:00 Pantoprazole 40 mg 40 mg DAILY@06 IV Last administered on 01/19/17 05:07; Admin Dose 40 MG; Start 01/14/17 at 06:00 Cefepime HCl (Maxipime 1gm/50 ml (Pmx)) 50 ml @ 100 mls/hr DAILY IVPB Last administered on 01/19/17 08:42; Admin Dose 100 MLS/HR; Start 01/15/17 at 20:00 Amiodarone HCl (Cordarone) 200 mg Q8 NGT Last administered on 01/18/17 14:59; Admin Dose 200 MG; Start 01/17/17 at 14:00 Insulin Glargine (Lantus) 40 unit DAILY@20 SC Last administered on 01/18/17 21: 01; Admin Dose 40 UNIT; Start 01/17/17 at 20:00 Metoprolol Tartrate (Lopressor) 25 mg BID NGT ; Start 01/19/17 at 21:00 IKE MULLER Jan 19, 2017 10:52
[2017-01-19] MEDS: CASPOFUNGIN 50 MG in SOD CHLORIDE 0.9% 250 ML IVPB SCH (11:40)
--- NOTE | 2017-01-19 12:31 | PN ---
Date/Time of Note Date/Time of Note DATE: 01/19/17 TIME: 12:24 Assessment/Plan VTE Prophylaxis VTE Prophylaxis Intervention: SCD's Lines/Catheters IV C[facility] Type [facility] [place] Lock Urinary Cath still in place: No Assessment/Plan Chief Complaint/Hosp Course No change in neurological status, patient open eyes, do not track. Patient is continued on ventilatory support. ASSESSMENT AND PLAN: 1. 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 Dr. Villa is following in neurology consultation. 2. Status post cardiopulmonary arrest on 12/09/2016 and 01/08/2017. Continue supportive care. Continue ventilatory support. Dr. Rivera is following in pulmonology consultation. 2. Possible tracheobronchitis versus pneumonia. The patient is currently on antibiotics per infectious disease. Dr. Wilson's group is following in infectious disease consultation. Patient is currently on cefepime and caspofungin. Sputum cultures are positive for pseudomonas. 3. Acute kidney injury on chronic kidney disease which progressed to end-stage renal disease. Patient is currently on hemodialysis. Dr. Remy is following in nephrology consultation. 4. Paroxysmal atrial fibrillation. The patient is continued on aspirin, amiodarone and Eliquis. Dr. Cobian is following in cardiology consultation. 5. Diabetes mellitus type 2. Continue patient's Lantus with NovoLog sliding scale coverage with Accu-Cheks q.4h while patient on nasogastric tube feeding. 6. Diabetic foot ulcer. Continue current wound care. 7. Peripheral arterial disease 8. Osteomyelitis of the distal phalanx of the left great toe and left proximal phalanx. Completed a course of antibiotics for osteomyelitis. Further recommendations based on clinical course. Plan of care discussed with Dr. Heredia. Problems: Exam/Review of Systems Vital Signs Vitals Vital Signs Date Time Temp Pulse Resp B/P Pulse Ox O2 Delivery O2 Flow Rate FiO2 01/19/17 10:45 71 16 118/58 100 Mechanical Ventilator 01/19/17 08:00 30 01/19/17 08:00 97.6 Intake and Output 01/18/17 01/18/17 01/19/17 15:00 23:00 07:00 Intake Total 1090 ml 140 ml 990 ml Output Total 285 ml 100 ml 600 ml Balance 805 ml 40 ml 390 ml Exam Constitutional: non-verbal Head: atraumatic, normocephalic Neck: supple Respiratory: diminished breath sounds Cardiovascular: nl pulses Gastrointestinal: non-tender, soft Extremities: normal pulses Neurological: unresponsive Results Result Diagram: 01/19/17 0500 01/19/17 0500 Results 24 hrs Laboratory Tests Test 01/18/17 12:53 01/18/17 17:17 01/18/17 20:56 01/19/17 01:18 Bedside Glucose 175 165 172 158 Test 01/19/17 05:00 01/19/17 05:07 01/19/17 08:59 White Blood Count 11.4 H Red Blood Count 2.79 L Hemoglobin 8.5 L Hematocrit 25.9 L Mean Corpuscular Volume 92.8 Mean Corpuscular Hemoglobin 30.5 Mean Corpuscular Hemoglobin Concent 32.8 Red Cell Distribution Width 13.0 Platelet Count 155 Mean Platelet Volume 10.8 H Neutrophils % 80.1 H Lymphocytes % 10.4 L Monocytes % 7.8 Eosinophils % 0.9 Basophils % 0.2 Nucleated Red Blood Cells % 0.0 Neutrophils # 9.2 H Lymphocytes # 1.2 Monocytes # 0.9 Eosinophils # 0.1 Basophils # 0.0 Nucleated Red Blood Cells # 0.0 Sodium Level 144 Potassium Level 4.0 Chloride Level 105 Carbon Dioxide Level 32 H Anion Gap 11 Blood Urea Nitrogen 72 H Creatinine 2.39 H Glucose Level 83 # Calcium Level 8.3 L Bedside Glucose 91 155 Medications Medications Current Medications Ondansetron HCl (Zofran Inj) 4 mg Q6H PRN IV NAUSEA AND/OR VOMITING Last administered on 12/13/16 01:13; Admin Dose 4 MG; Start 12/02/16 at 22:30 Miscellaneous Information 1 ea NOTE XX ; Start 12/02/16 at 23:00 Glucose (Glutose) 15 gm Q15M PRN PO DECREASED GLUCOSE; Start 12/02/16 at 23:00 Glucose (Glutose) 22.5 gm Q15M PRN PO DECREASED GLUCOSE; Start 12/02/16 at 23: 00 Dextrose (D50w Syringe) 25 ml Q15M PRN IV DECREASED GLUCOSE Last administered on 12/10/16 05:52; Admin Dose 25 ML; Start 12/02/16 at 23:00 Dextrose (D50w Syringe) 50 ml Q15M PRN IV DECREASED GLUCOSE; Start 12/02/16 at 23:00 Glucagon (Glucagen) 1 mg Q15M PRN IM DECREASED GLUCOSE; Start 12/02/16 at 23:00 Glucose (Glutose) 15 gm Q15M PRN BUCCAL DECREASED GLUCOSE; Start 12/02/16 at 23 :00 Gabapentin (Neurontin) 800 mg TID PO Last administered on 12/08/16 20:33; Admin Dose 800 MG; Start 12/03/16 at 09:00; Status Future Hold Benazepril HCl (Lotensin) 10 mg DAILY PO Last administered on 12/07/16 08:26; Admin Dose 10 MG; Start 12/04/16 at 09:00; Status Future Hold Acetaminophen (Tylenol Supp) 650 mg Q6H PRN [place] ELEVATED TEMPERATURE Last administered on 01/13/17 20:32; Admin Dose 650 MG; Start 12/09/16 at 17:00 Hydralazine HCl (Apresoline) 10 mg Q6H PRN IV SBP>150mm hg Last administered on 12/19/16 08:50; Admin Dose 10 MG; Start 12/11/16 at 10:30 Morphine Sulfate (morphine) 2 mg Q2H PRN IV PAIN LEVEL 4-7; Start 12/13/16 at 10 :00 Collagenase 1 applic 1 applic DAILY TOP Last administered on 01/17/17 09:19; Admin Dose 1 APPLIC; Start 01/04/17 at 09:00 Linezolid (Zyvox 600mg/D5W (Pmx)) 300 ml @ 300 mls/hr Q12 IVPB Last administered on 01/19/17 10:34; Admin Dose 300 MLS/HR; Start 01/08/17 at 18:00 Insulin Aspart (Novolog Insulin Pen) NOVOLOG *MODERATE* ALGORI... Q4 SC Last administered on 01/19/17 12:18; Admin Dose 4 UNIT; Start 01/09/17 at 14:15 Diagnostic Test (Pha) 1 ea 1 ea 02 XX Last administered on 01/16/17 02:00; Admin Dose 1 EA; Start 01/10/17 at 02:00 Caspofungin/ Sodium Chloride (Cancidas/NS) 250 ml @ 250 mls/hr Q24H IVPB Last administered on 01/19/17 11:40; Admin Dose 250 MLS/HR; Start 01/13/17 at 09:30 Metoprolol Tartrate (Lopressor) 5 mg Q4 PRN IV FOR H.R>110; Start 01/12/17 at 17:30 Acetaminophen (Tylenol Liquid) 650 mg Q6H PRN NGT PAIN AND OR ELEVATED TEMP; Start 01/13/17 at 23:30 Apixaban (Eliquis) 2.5 mg BID NGT Last administered on 01/19/17 08:46; Admin Dose 2.5 MG; Start 01/13/17 at 21:00 Acetaminophen/ Hydrocodone Bitart ([place] (5/325)) 1 tab Q6H PRN NGT PAIN LEVEL 4-7; Start 01/13/17 at 23:30 Levetiracetam (Keppra Liquid) 1,000 mg DAILY NGT Last administered on 01/19/17 08:46; Admin Dose 1,000 MG; Start 01/14/17 at 09:00 Meclizine HCl (Antivert) 25 mg TID PRN NGT dizziness; Start 01/13/17 at 20:00 Zolpidem Tartrate (Ambien) 5 mg HS PRN NGT INSOMNIA; Start 01/13/17 at 20:00 Aspirin (Aspirin) 81 mg DAILY NGT Last administered on 01/19/17 08:46; Admin Dose 81 MG; Start 01/14/17 at 09:00 Docusate Sodium (Colace Liquid Cup) 100 mg BID NGT Last administered on 08:46; Admin Dose 100 MG; Start 01/13/17 at 21:00 Pantoprazole 40 mg 40 mg DAILY@06 IV Last administered on 01/19/17 05:07; Admin Dose 40 MG; Start 01/14/17 at 06:00 Cefepime HCl (Maxipime 1gm/50 ml (Pmx)) 50 ml @ 100 mls/hr DAILY IVPB Last administered on 01/19/17 08:42; Admin Dose 100 MLS/HR; Start 01/15/17 at 20:00 Amiodarone HCl (Cordarone) 200 mg Q8 NGT Last administered on 01/18/17 14:59; Admin Dose 200 MG; Start 01/17/17 at 14:00 Insulin Glargine (Lantus) 40 unit DAILY@20 SC Last administered on 01/18/17t 21: 01; Admin Dose 40 UNIT; Start 01/17/17 at 20:00 Metoprolol Tartrate (Lopressor) 25 mg BID NGT ; Start 01/19/17 at 21:00 KIMBERLY NOYOLA Jan 19, 2017 12:31
--- NOTE | 2017-01-19 13:32 | CONS ---
Date/Time of Note Date/Time of Note DATE: 01/19/17 TIME: 13:26 Consult Date/Type/Reason Admit Date/Time Dec 02, 2016 at 21:01 Initial Consult Date 12/08/16 Type of Consultation: Infectious Disease f/u Ordering Provider: VIET PARKER MD Subjective Patient unable, spouse at the bedside states that patient wakes up but unable to follow commands or squeeze hand. Family still deciding whether to place PEG and/or Tracheostomy per Nurse Hattie, summer law associate Objective Vital Signs Date Time Temp Pulse Resp B/P Pulse Ox O2 Delivery O2 Flow Rate FiO2 01/19/17 12:00 68 01/19/17 12:00 97.8 16 105/49 100 Mechanical Ventilator 01/19/17 08:00 30 Intake and Output 01/18/17 01/18/17 01/19/17 15:00 23:00 07:00 Intake Total 1090 ml 140 ml 990 ml Output Total 285 ml 100 ml 600 ml Balance 805 ml 40 ml 390 ml Exam Constitutional: intubated and ventilator supported Head: atraumatic, normocephalic, eyes open but unable to track, NGT left nares (tube feeding infusing) Neck: supple Respiratory: diminished breath sounds Chest: dialysis acces right upper chest Gastrointestinal: soft, non-distended Genitourianry: almonte catheter in place Extremities: warm and dry palpable pulses, dressing left foot clean, dry and no visible drainage, IV access right and left forearm, no swelling or erythema Neurological: nonverbal and unresponsive Results/Medications Result Diagram: 01/19/17 0500 01/19/17 0500 Results 24 hrs Laboratory Tests Test 01/18/17 17:17 01/18/17 20:56 01/19/17 01:18 01/19/17 05:00 Bedside Glucose 165 172 158 White Blood Count 11.4 H Red Blood Count 2.79 L Hemoglobin 8.5 L Hematocrit 25.9 L Mean Corpuscular Volume 92.8 Mean Corpuscular Hemoglobin 30.5 Mean Corpuscular Hemoglobin Concent 32.8 Red Cell Distribution Width 13.0 Platelet Count 155 Mean Platelet Volume 10.8 H Neutrophils % 80.1 H Lymphocytes % 10.4 L Monocytes % 7.8 Eosinophils % 0.9 Basophils % 0.2 Nucleated Red Blood Cells % 0.0 Neutrophils # 9.2 H Lymphocytes # 1.2 Monocytes # 0.9 Eosinophils # 0.1 Basophils # 0.0 Nucleated Red Blood Cells # 0.0 Sodium Level 144 Potassium Level 4.0 Chloride Level 105 Carbon Dioxide Level 32 H Anion Gap 11 Blood Urea Nitrogen 72 H Creatinine 2.39 H Glucose Level 83 # Calcium Level 8.3 L Test 01/19/17 05:07 01/19/17 08:59 01/19/17 12:14 Bedside Glucose 91 155 182 Medications Current Medications Ondansetron HCl (Zofran Inj) 4 mg Q6H PRN IV NAUSEA AND/OR VOMITING Last administered on 12/13/16 01:13; Admin Dose 4 MG; Start 12/02/16 at 22:30 Miscellaneous Information 1 ea NOTE XX ; Start 12/02/16 at 23:00 Glucose (Glutose) 15 gm Q15M PRN PO DECREASED GLUCOSE; Start 12/02/16 at 23:00 Glucose (Glutose) 22.5 gm Q15M PRN PO DECREASED GLUCOSE; Start 12/02/16 at 23: 00 Dextrose (D50w Syringe) 25 ml Q15M PRN IV DECREASED GLUCOSE Last administered on 12/10/16 05:52; Admin Dose 25 ML; Start 12/02/16 at 23:00 Dextrose (D50w Syringe) 50 ml Q15M PRN IV DECREASED GLUCOSE; Start 12/02/16 at 23:00 Glucagon (Glucagen) 1 mg Q15M PRN IM DECREASED GLUCOSE; Start 12/02/16 at 23:00 Glucose (Glutose) 15 gm Q15M PRN BUCCAL DECREASED GLUCOSE; Start 12/02/16 at 23 :00 Gabapentin (Neurontin) 800 mg TID PO Last administered on 12/08/16 20:33; Admin Dose 800 MG; Start 12/03/16 at 09:00; Status Future Hold Benazepril HCl (Lotensin) 10 mg DAILY PO Last administered on 12/07/16 08:26; Admin Dose 10 MG; Start 12/04/16 at 09:00; Status Future Hold Acetaminophen (Tylenol Supp) 650 mg Q6H PRN [place] ELEVATED TEMPERATURE Last administered on 01/13/17 20:32; Admin Dose 650 MG; Start 12/09/16 at 17:00 Hydralazine HCl (Apresoline) 10 mg Q6H PRN IV SBP>150mm hg Last administered on 12/19/16 08:50; Admin Dose 10 MG; Start 12/11/16 at 10:30 Morphine Sulfate (morphine) 2 mg Q2H PRN IV PAIN LEVEL 4-7; Start 12/13/16 at 10 :00 Collagenase 1 applic 1 applic DAILY TOP Last administered on 01/17/17 09:19; Admin Dose 1 APPLIC; Start 01/04/17 at 09:00 Linezolid (Zyvox 600mg/D5W (Pmx)) 300 ml @ 300 mls/hr Q12 IVPB Last administered on 01/19/17 10:34; Admin Dose 300 MLS/HR; Start 01/08/17 at 18:00 Insulin Aspart (Novolog Insulin Pen) NOVOLOG *MODERATE* [place]I... Q4 SC Last administered on 01/19/17 12:18; Admin Dose 4 UNIT; Start 01/09/17 at 14:15 Diagnostic Test (Pha) 1 ea 1 ea 02 XX Last administered on 01/16/17 02:00; Admin Dose 1 EA; Start 01/10/17 at 02:00 Caspofungin/ Sodium Chloride (Cancidas/NS) 250 ml @ 250 mls/hr Q24H IVPB Last administered on 01/19/17 11:40; Admin Dose 250 MLS/HR; Start 01/13/17 at 09:30 Metoprolol Tartrate (Lopressor) 5 mg Q4 PRN IV FOR H.R>110; Start 01/12/17 at 17:30 Acetaminophen (Tylenol Liquid) 650 mg Q6H PRN NGT PAIN AND OR ELEVATED TEMP; Start 01/13/17 at 23:30 Apixaban (Eliquis) 2.5 mg BID NGT Last administered on 01/19/17 08:46; Admin Dose 2.5 MG; Start 01/13/17 at 21:00 Acetaminophen/ Hydrocodone Bitart ([place] (5/325)) 1 tab Q6H PRN NGT PAIN LEVEL 4-7; Start 01/13/17 at 23:30 Levetiracetam (Keppra Liquid) 1,000 mg DAILY NGT Last administered on 01/19/17 08:46; Admin Dose 1,000 MG; Start 01/14/17 at 09:00 Meclizine HCl (Antivert) 25 mg TID PRN NGT dizziness; Start 01/13/17 at 20:00 Zolpidem Tartrate (Ambien) 5 mg HS PRN NGT INSOMNIA; Start 01/13/17 at 20:00 Aspirin (Aspirin) 81 mg DAILY NGT Last administered on 01/19/17 08:46; Admin Dose 81 MG; Start 01/14/17 at 09:00 Docusate Sodium (Colace Liquid Cup) 100 mg BID NGT Last administered on 08:46; Admin Dose 100 MG; Start 01/13/17 at 21:00 Pantoprazole 40 mg 40 mg DAILY@06 IV Last administered on 01/19/17 05:07; Admin Dose 40 MG; Start 01/14/17 at 06:00 Cefepime HCl (Maxipime 1gm/50 ml (Pmx)) 50 ml @ 100 mls/hr DAILY IVPB Last administered on 01/19/17 08:42; Admin Dose 100 MLS/HR; Start 01/15/17 at 20:00 Amiodarone HCl (Cordarone) 200 mg Q8 NGT Last administered on 01/18/17 14:59; Admin Dose 200 MG; Start 01/17/17 at 14:00 Insulin Glargine (Lantus) 40 unit DAILY@20 SC Last administered on 01/18/17 21: 01; Admin Dose 40 UNIT; Start 01/17/17 at 20:00 Metoprolol Tartrate (Lopressor) 25 mg BID NGT ; Start 01/19/17 at 21:00 Assessment/Plan Chief Complaint/Hosp Course - recurrent cardiopulmonary arrest on 12/09/2016 and on 01/08/2017 - sepsis due to possible tracheobronchitis/pneumonia - possible tracheobronchitis/pneumonia due to pseudomonas - s/p recurrent sepsis - 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 Blood cultures from HD catheter on 12/13/2016 are negative to date. 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 MRI on 12/06/2016 and bone scan on showed 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 and left fourth proximal phalanx. superficial swab grew inna only. At present, no e/o persistent infection - recurrent pleural effusion - s/p right pleural effusion s/p thoracentesis with .9L removed on 12/16/2016; ( Note: there is no pleural fluid cx since orders were placed after Right thoracentesis, and Left thoracentesis was not performed on 12/17/16 d/t insufficient fluid) - funguria - ARANZA on CKD that progressed to ESRD and started on HD from 12/09/2016 - oliguria - improved - A fib -> PAF - small nonreversible perfusion abnormality in the inferoapical and inferior carver; EF 36% per Lexiscan 12/24/2016 - severe , EF 40-45% per TTE 12/17/16 - DM - Hgb A1c 8.7% - HTN associated with DM - recurrent episodes of respiratory failure - acute encephalopathy with anoxic brain injury - stage 3 decubitus ulcer of coccyx without evidence of infection - urinary retention recommendations: - f/u EEG results - family decision - f/u all cxs - continue renally dosed cefepime for pseudomonas (01/15/2017-) - continue linezolid empirically (01/08/2017-), caspofungin empirically (2016-) - will monitor CBC while Pt's on linezolid - Pt completed 6 weeks of antibiotics to treat 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 and left fourth proximal phalanx: 12/03/2016-01/15/2017 (s/p pip/tazo 12/03/16-01/08/17) - continue local wound care of L 1st toe and coccyx Care and management discussed with ALINA Kuhn and DR. Wilson Problems: PAULA MUHAMMAD Jan 19, 2017 13:32
--- NOTE | 2017-01-19 16:30 | CONS ---
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 Blood cultures from HD catheter on 12/13/2016 are negative to date. 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 MRI on 12/06/2016 and bone scan on showed 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 and left fourth proximal phalanx. superficial swab grew inna only - s/p right pleural effusion s/p thoracentesis with .9L removed on 12/16/2016 - severe , EF 40-45% per TTE 12/17/16 - DM - Hgb A1c 8.7% - HTN associated with DM Plan: Plan for HD today S/p EEG showed epileptiform activity- stared on keppra by Neurology - poor prognosis for meaningful recovery as per Neurology S/P family metting on 01/16/17- Full Code- another family meeting tomorrow pt has severe , very labile BP sometimes with HD HD today, Consultation Date/Type/Reason Admit Date/Time Dec 02, 2016 at 21:01 Initial Consult Date Type of Consultation: NEPHROLOGY Referring Provider: VIET PARKER MD 24 HR Interval Summary Free Text/Dictation plan for HD today, family meeting arranged Exam/Review of Systems Vital Signs Vitals Vital Signs Date Time Temp Pulse Resp B/P Pulse Ox O2 Delivery O2 Flow Rate FiO2 01/19/17 16:00 98.3 70 16 105/53 100 Mechanical Ventilator 01/19/17 08:00 30 Intake and Output 01/18/17 01/18/17 01/19/17 15:00 23:00 07:00 Intake Total 1090 ml 140 ml 990 ml Output Total 285 ml 100 ml 600 ml Balance 805 ml 40 ml 390 ml Exam Constitutional: non verbal ENMT: Et tube in place Neck: non-tender, supple Respiratory: other (Intubated) Cardiovascular: nl pulses, regular rate and rhythm Gastrointestinal: nl liver, spleen, non-tender, soft Neurological: other (Eyes are open but does not follow commands, does not communicate, intubated and mechanically ventilated, very limited exam) + permcath in place Results Result Diagram: 01/19/17 0500 01/19/17 0500 Results 24 hrs Laboratory Tests Test 01/18/17 17:17 01/18/17 20:56 01/19/17 01:18 01/19/17 05:00 Bedside Glucose 165 172 158 White Blood Count 11.4 H Red Blood Count 2.79 L Hemoglobin 8.5 L Hematocrit 25.9 L Mean Corpuscular Volume 92.8 Mean Corpuscular Hemoglobin 30.5 Mean Corpuscular Hemoglobin Concent 32.8 Red Cell Distribution Width 13.0 Platelet Count 155 Mean Platelet Volume 10.8 H Neutrophils % 80.1 H Lymphocytes % 10.4 L Monocytes % 7.8 Eosinophils % 0.9 Basophils % 0.2 Nucleated Red Blood Cells % 0.0 Neutrophils # 9.2 H Lymphocytes # 1.2 Monocytes # 0.9 Eosinophils # 0.1 Basophils # 0.0 Nucleated Red Blood Cells # 0.0 Sodium Level 144 Potassium Level 4.0 Chloride Level 105 Carbon Dioxide Level 32 H Anion Gap 11 Blood Urea Nitrogen 72 H Creatinine 2.39 H Glucose Level 83 # Calcium Level 8.3 L Test 01/19/17 05:07 01/19/17 08:59 01/19/17 12:14 Bedside Glucose 91 155 182 Medications Medications Current Medications Ondansetron HCl (Zofran Inj) 4 mg Q6H PRN IV NAUSEA AND/OR VOMITING Last administered on 12/13/16 01:13; Admin Dose 4 MG; Start 12/02/16 at 22:30 Miscellaneous Information 1 ea NOTE XX ; Start 12/02/16 at 23:00 Glucose (Glutose) 15 gm Q15M PRN PO DECREASED GLUCOSE; Start 12/02/16 at 23:00 Glucose (Glutose) 22.5 gm Q15M PRN PO DECREASED GLUCOSE; Start 12/02/16 at 23: 00 Dextrose (D50w Syringe) 25 ml Q15M PRN IV DECREASED GLUCOSE Last administered on 12/10/16 05:52; Admin Dose 25 ML; Start 12/02/16 at 23:00 Dextrose (D50w Syringe) 50 ml Q15M PRN IV DECREASED GLUCOSE; Start 12/02/16 at 23:00 Glucagon (Glucagen) 1 mg Q15M PRN IM DECREASED GLUCOSE; Start 12/02/16 at 23:00 Glucose (Glutose) 15 gm Q15M PRN BUCCAL DECREASED GLUCOSE; Start 12/02/16 at 23 :00 Gabapentin (Neurontin) 800 mg TID PO Last administered on 12/08/16 20:33; Admin Dose 800 MG; Start 12/03/16 at 09:00; Status Future Hold Benazepril HCl (Lotensin) 10 mg DAILY PO Last administered on 12/07/16 08:26; Admin Dose 10 MG; Start 12/04/16 at 09:00; Status Future Hold Acetaminophen (Tylenol Supp) 650 mg Q6H PRN [place] ELEVATED TEMPERATURE Last administered on 01/13/17 20:32; Admin Dose 650 MG; Start 12/09/16 at 17:00 Hydralazine HCl (Apresoline) 10 mg Q6H PRN IV SBP>150mm hg Last administered on 12/19/16 08:50; Admin Dose 10 MG; Start 12/11/16 at 10:30 Morphine Sulfate (morphine) 2 mg Q2H PRN IV PAIN LEVEL 4-7; Start 12/13/16 at 10 :00 Collagenase 1 applic 1 applic DAILY TOP Last administered on 01/17/17 09:19; Admin Dose 1 APPLIC; Start 01/04/17 at 09:00 Linezolid (Zyvox 600mg/D5W (Pmx)) 300 ml @ 300 mls/hr Q12 IVPB Last administered on 01/19/17 10:34; Admin Dose 300 MLS/HR; Start 01/08/17 at 18:00 Insulin Aspart (Novolog Insulin Pen) NOVOLOG *MODERATE* ALGORI... Q4 SC Last administered on 01/19/17 12:18; Admin Dose 4 UNIT; Start 01/09/17 at 14:15 Diagnostic Test (Pha) 1 ea 1 ea 02 XX Last administered on 01/16/17 02:00; Admin Dose 1 EA; Start 01/10/17 at 02:00 Caspofungin/ Sodium Chloride (Cancidas/NS) 250 ml @ 250 mls/hr Q24H IVPB Last administered on 01/19/17 11:40; Admin Dose 250 MLS/HR; Start 01/13/17 at 09:30 Metoprolol Tartrate (Lopressor) 5 mg Q4 PRN IV FOR H.R>110; Start 01/12/17 at 17:30 Acetaminophen (Tylenol Liquid) 650 mg Q6H PRN NGT PAIN AND OR ELEVATED TEMP; Start 01/13/17 at 23:30 Apixaban (Eliquis) 2.5 mg BID NGT Last administered on 01/19/17 08:46; Admin Dose 2.5 MG; Start 01/13/17 at 21:00 Acetaminophen/ Hydrocodone Bitart ([place] (5/325)) 1 tab Q6H PRN NGT PAIN LEVEL 4-7; Start 01/13/17 at 23:30 Levetiracetam (Keppra Liquid) 1,000 mg DAILY NGT Last administered on 01/19/17 08:46; Admin Dose 1,000 MG; Start 01/14/17 at 09:00 Meclizine HCl (Antivert) 25 mg TID PRN NGT dizziness; Start 01/13/17 at 20:00 Zolpidem Tartrate (Ambien) 5 mg HS PRN NGT INSOMNIA; Start 01/13/17 at 20:00 Aspirin (Aspirin) 81 mg DAILY NGT Last administered on 01/19/17 08:46; Admin Dose 81 MG; Start 01/14/17 at 09:00 Docusate Sodium (Colace Liquid Cup) 100 mg BID NGT Last administered on 08:46; Admin Dose 100 MG; Start 01/13/17 at 21:00 Pantoprazole 40 mg 40 mg DAILY@06 IV Last administered on 01/19/17 05:07; Admin Dose 40 MG; Start 01/14/17 at 06:00 Cefepime HCl (Maxipime 1gm/50 ml (Pmx)) 50 ml @ 100 mls/hr DAILY IVPB Last administered on 01/19/17 08:42; Admin Dose 100 MLS/HR; Start 01/15/17 at 20:00 Amiodarone HCl (Cordarone) 200 mg Q8 NGT Last administered on 01/19/17 13:55; Admin Dose 200 MG; Start 01/17/17 at 14:00 Insulin Glargine (Lantus) 40 unit DAILY@20 SC Last administered on 01/18/17 21: 01; Admin Dose 40 UNIT; Start 01/17/17 at 20:00 Metoprolol Tartrate (Lopressor) 25 mg BID NGT ; Start 01/19/17 at 21:00 TASHIA MCGARRY MD Jan 19, 2017 16:29
[2017-01-19] MEDS: INSULIN GLARGINE [LANtus] 3 ML PEN SC SCH (21:21)
[2017-01-19] MEDS: METOPROLOL 25 MG TAB NGT SCH (21:26)
[2017-01-20] VITALS (47 sets, daily range): BP systolic 82–145; BP diastolic 41–64; PULSE 56–70; RESP 13–22
[2017-01-20] MEDS: INSULIN ASPART [NOVOLOG] 3 ML PEN SC SCH ×7 (01:00→20:43)
[2017-01-20] MEDS: ACCU-CHEK XX SCH (01:03)
[2017-01-20] MEDS: ALBUTEROL 18 GM INHALER INH SCH ×4 (03:52→19:37)
[2017-01-20] MEDS: PANTOPRAZOLE 40 MG INJ IV SCH (05:37)
[2017-01-20] MEDS: AMIODARONE 200 MG TAB NGT SCH ×3 (05:37→22:00)
[2017-01-20 06:53] LABS: ADD SCAN DIFF NO
[2017-01-20 06:59] LABS: BASOPHILS % 0.1 % (0.0-2.0); EOSINOPHILS # 0.1 10^3/ul (0.0-0.5); EOSINOPHILS % 0.5 % (0.0-7.0); HEMATOCRIT 28.1 % (42.0-52.0); LYMPHOCYTES # 1.2 10^3/ul (0.8-2.9); LYMPHOCYTES % 9.5 % (15.0-51.0); MEAN CORPUSCULAR HEMOGLOBIN 30.5 pg (29.0-33.0); MEAN CORPUSCULAR VOLUME 95.3 fl (82.0-101.0); MEAN PLATELET VOLUME 10.6 fl (7.4-10.4); MONOCYTES % 7.7 % (0.0-11.0); NEUTROPHILS % 81.3 % (39.0-77.0); PLATELET COUNT 170 10^3/UL (140-415); RED BLOOD COUNT 2.95 10^6/ul (4.70-6.10); RED CELL DISTRIBUTION WIDTH 13.2 % (11.5-14.5); WHITE BLOOD COUNT 12.3 10^3/ul (4.8-10.8)
[2017-01-20 07:27] LABS: CALCIUM 8.7 mg/dl (8.4-10.2); CREATININE 1.96 mg/dl (0.61-1.24)
[2017-01-20] MEDS: DOCUSATE SODIUM 10 MG/ML (10ML CUP) NGT SCH ×2 (08:18→20:32)
[2017-01-20] MEDS: LINEZOLID 600 MG/D5W (PMX) 300 ML IVPB SCH (08:18)
[2017-01-20] MEDS: CEFEPIME 1GM/50 ML (PMX) 50 ML IVPB SCH ×2 (08:18→17:49)
[2017-01-20] MEDS: LEVETIRACETAM (100 MG/ML) 5ML CUP NGT SCH (08:18)
[2017-01-20] MEDS: APIXABAN 5 MG TABLET NGT SCH ×2 (08:19→20:33)
[2017-01-20] MEDS: ASPIRIN 81 MG TAB NGT SCH (08:19)
[2017-01-20] MEDS: METOPROLOL 25 MG TAB NGT SCH ×2 (08:19→20:33)
[2017-01-20] MEDS: CASPOFUNGIN 50 MG in SOD CHLORIDE 0.9% 250 ML IVPB SCH (09:58)
[2017-01-20] MEDS: COLLAGENASE 30 GM TUBE TOP SCH (10:00)
--- NOTE | 2017-01-20 10:15 | CONS ---
Date/Time of Note Date/Time of Note DATE: 01/20/17 TIME: 10:12 Assessment/Plan Assessment/Plan Additional Assessment/Plan Ventilator setting; AC of 16, tidal volume 500, PEEP of 5, 30% FiO2. Assessment recommendations; next 1. Patient initially admitted for cellulitis then developed renal failure now requiring hemodialysis. 2. Recurrent respiratory failure, status post CPR with resulting anoxic brain injury. Etiology likely is flash pulmonary edema from underlying cardiomyopathy. 3. Fungemia. 4. No overt seizure activity noted. Patient maintained on Keppra prophylactically. 5. History of diabetes, hypertension and peripheral vascular disease. Continue current treatment except discontinue Zyvox and cefepime. Patient will need to have a tracheostomy and G-tube placed. Prognosis is poor. Consultation Date/Type/Reason Admit Date/Time Dec 02, 2016 at 21:01 Initial Consult Date 12/03/16 Type of Consultation: Pulmonary/critical care Referring Provider: VIET PARKER MD 24 HR Interval Summary Free Text/Dictation Patient condition remains unchanged. Remains essentially unresponsive. However has remained hemodynamically stable. No untoward events reported. General exam; elderly male, on ventilator via endotracheal tube. Unresponsive. Currently in no distress. Exam/Review of Systems Vital Signs Vitals Vital Signs Date Time Temp Pulse Resp B/P Pulse Ox O2 Delivery O2 Flow Rate FiO2 01/20/17 09:49 64 16 96 30 01/20/17 07:30 98.7 01/20/17 07:00 132/58 01/19/17 20:00 Mechanical Ventilator Intake and Output 01/19/17 01/19/17 01/20/17 15:00 23:00 07:00 Intake Total 1570 ml 290 ml 370 ml Output Total 2575 ml 250 ml 175 ml Balance -1005 ml 40 ml 195 ml Exam HEENT examination; supple neck, no JVD. No lymphadenopathy. Midline trachea. No thyromegaly. Patient is edentulous. Pupils are small bilaterally. Chest examination; diminished but clear vessel. S1-S2 audible, no murmurs. Regular rhythm. Abdomen examination; soft, no organomegaly. Bowel sounds audible. Nondistended. Extremity examination; no peripheral edema. [employer] examination; patient remains unresponsive. Results Result Diagram: 01/20/17 0527 01/20/17 0527 Results 24 hrs Laboratory Tests Test 01/19/17 12:14 01/19/17 16:31 01/19/17 21:10 01/20/17 01:39 Bedside Glucose 182 195 165 197 Test 01/20/17 05:27 01/20/17 05:43 01/20/17 08:16 White Blood Count 12.3 H Red Blood Count 2.95 L Hemoglobin 9.0 L Hematocrit 28.1 L Mean Corpuscular Volume 95.3 Mean Corpuscular Hemoglobin 30.5 Mean Corpuscular Hemoglobin Concent 32.0 Red Cell Distribution Width 13.2 Platelet Count 170 Mean Platelet Volume 10.6 H Neutrophils % 81.3 H Lymphocytes % 9.5 L Monocytes % 7.7 Eosinophils % 0.5 Basophils % 0.1 Nucleated Red Blood Cells % 0.0 Neutrophils # 10.0 H Lymphocytes # 1.2 Monocytes # 1.0 H Eosinophils # 0.1 Basophils # 0.0 Nucleated Red Blood Cells # 0.0 Sodium Level 148 H Potassium Level 4.0 Chloride Level 107 Carbon Dioxide Level 32 H Anion Gap 13 Blood Urea Nitrogen 54 H Creatinine 1.96 H Glucose Level 126 # Calcium Level 8.7 Bedside Glucose 123 138 Medications Medications Current Medications Ondansetron HCl (Zofran Inj) 4 mg Q6H PRN IV NAUSEA AND/OR VOMITING Last administered on 12/13/16 01:13; Admin Dose 4 MG; Start 12/02/16 at 22:30 Miscellaneous Information 1 ea NOTE XX ; Start 12/02/16 at 23:00 Glucose (Glutose) 15 gm Q15M PRN PO DECREASED GLUCOSE; Start 12/02/16 at 23:00 Glucose (Glutose) 22.5 gm Q15M PRN PO DECREASED GLUCOSE; Start 12/02/16 at 23: 00 Dextrose (D50w Syringe) 25 ml Q15M PRN IV DECREASED GLUCOSE Last administered on 12/10/16 05:52; Admin Dose 25 ML; Start 12/02/16 at 23:00 Dextrose (D50w Syringe) 50 ml Q15M PRN IV DECREASED GLUCOSE; Start 12/02/16 at 23:00 Glucagon (Glucagen) 1 mg Q15M PRN IM DECREASED GLUCOSE; Start 12/02/16 at 23:00 Glucose (Glutose) 15 gm Q15M PRN BUCCAL DECREASED GLUCOSE; Start 12/02/16 at 23 :00 Gabapentin (Neurontin) 800 mg TID PO Last administered on 12/08/16 20:33; Admin Dose 800 MG; Start 12/03/16 at 09:00; Status Future Hold Benazepril HCl (Lotensin) 10 mg DAILY PO Last administered on 12/07/16 08:26; Admin Dose 10 MG; Start 12/04/16 at 09:00; Status Future Hold Acetaminophen (Tylenol Supp) 650 mg Q6H PRN [place] ELEVATED TEMPERATURE Last administered on 01/13/17 20:32; Admin Dose 650 MG; Start 12/09/16 at 17:00 Hydralazine HCl (Apresoline) 10 mg Q6H PRN IV SBP>150mm hg Last administered on 12/19/16 08:50; Admin Dose 10 MG; Start 12/11/16 at 10:30 Morphine Sulfate (morphine) 2 mg Q2H PRN IV PAIN LEVEL 4-7; Start 12/13/16 at 10 :00 Collagenase 1 applic 1 applic DAILY TOP Last administered on 01/20/17 10:00; Admin Dose 1 APPLIC; Start 01/04/17 at 09:00 Linezolid (Zyvox 600mg/D5W (Pmx)) 300 ml @ 300 mls/hr Q12 IVPB Last administered on 01/20/17 08:18; Admin Dose 300 MLS/HR; Start 01/08/17 at 18:00 Insulin Aspart (Novolog Insulin Pen) NOVOLOG *MODERATE* ALGORI... Q4 SC Last administered on 01/20/17 01:54; Admin Dose 4 UNIT; Start 01/09/17 at 14:15 Diagnostic Test (Pha) 1 ea 1 ea 02 XX Last administered on 01/20/17 01:03; Admin Dose 1 EA; Start 01/10/17 at 02:00 Caspofungin/ Sodium Chloride (Cancidas/NS) 250 ml @ 250 mls/hr Q24H IVPB Last administered on 01/20/17 09:58; Admin Dose 250 MLS/HR; Start 01/13/17 at 09:30 Metoprolol Tartrate (Lopressor) 5 mg Q4 PRN IV FOR H.R>110; Start 01/12/17 at 17:30 Acetaminophen (Tylenol Liquid) 650 mg Q6H PRN NGT PAIN AND OR ELEVATED TEMP; Start 01/13/17 at 23:30 Apixaban (Eliquis) 2.5 mg BID NGT Last administered on 01/20/17 08:19; Admin Dose 2.5 MG; Start 01/13/17 at 21:00 Acetaminophen/ Hydrocodone Bitart ([place] (5/325)) 1 tab Q6H PRN NGT PAIN LEVEL 4-7; Start 01/13/17 at 23:30 Levetiracetam (Keppra Liquid) 1,000 mg DAILY NGT Last administered on 01/20/17 08:18; Admin Dose 1,000 MG; Start 01/14/17 at 09:00 Meclizine HCl (Antivert) 25 mg TID PRN NGT dizziness; Start 01/13/17 at 20:00 Zolpidem Tartrate (Ambien) 5 mg HS PRN NGT INSOMNIA; Start 01/13/17 at 20:00 Aspirin (Aspirin) 81 mg DAILY NGT Last administered on 01/20/17 08:19; Admin Dose 81 MG; Start 01/14/17 at 09:00 Docusate Sodium (Colace Liquid Cup) 100 mg BID NGT Last administered on 08:18; Admin Dose 100 MG; Start 01/13/17 at 21:00 Pantoprazole 40 mg 40 mg DAILY@06 IV Last administered on 01/20/17 05:37; Admin Dose 40 MG; Start 01/14/17 at 06:00 Cefepime HCl (Maxipime 1gm/50 ml (Pmx)) 50 ml @ 100 mls/hr DAILY IVPB Last administered on 01/20/17 08:18; Admin Dose 100 MLS/HR; Start 01/15/17 at 20:00 Amiodarone HCl (Cordarone) 200 mg Q8 NGT Last administered on 01/20/17 05:37; Admin Dose 200 MG; Start 01/17/17 at 14:00 Insulin Glargine (Lantus) 40 unit DAILY@20 SC Last administered on 01/19/17 21: 21; Admin Dose 40 UNIT; Start 01/17/17 at 20:00 Metoprolol Tartrate (Lopressor) 25 mg BID NGT Last administered on 01/20/17 08: 19; Admin Dose 25 MG; Start 01/19/17 at 21:00 IKE MULLER Jan 20, 2017 10:14
--- NOTE | 2017-01-20 11:42 | CONS ---
Date/Time of Note Date/Time of Note DATE: 01/20/17 TIME: 11:39 Assessment/Plan Assessment/Plan Chief Complaint/Hosp Course IMPRESSION: 1. Atrial fibrillation-Having episodes of PAF with reasonable rate control 2. Hypotension-borderline while on HD currently 3. Abnormal electrocardiogram with inferolateral T-wave inversions. 4. Respiratory failure-s/p intubation and remains thus 5. Nonhealing toe ulceration-vascular following 6. Peripheral arterial disease by arterial ultrasound of the lower extremities this admission. 7. Diabetes mellitus. 8. Fevers. 9. Positive troponin-downtrended 10.Bradycardia-improved/stable 11.-severe by echo 12.Cardiomyopathy-EF 40-45% by echo/36% by stress with no ischemia but positive scar. EF <30% by echo post arrest 14.Encephalopathy-anoxic 15. s/p cardiopulmonary arrest 01/08 Recc: -Tele -serial ecg -HD for volume removal as tolerated -Continue baby asa/eliquis -Continue PO amio in attempt to maintain SR -Continue BB as tolerated only following HR/BP closely and thus will decrease dose given marginal BP -Will hold on afterload reduction given severe and thus fixed afterload at valve orifice -Wean vent as possible/tolerated Problems: Consultation Date/Type/Reason Admit Date/Time Dec 02, 2016 at 21:01 Initial Consult Date 12/03/16 Type of Consultation: Cardiology Reason for Consultation CHF/ Referring Provider: VIET PARKER MD Exam/Review of Systems Vital Signs Vitals Vital Signs Date Time Temp Pulse Resp B/P Pulse Ox O2 Delivery O2 Flow Rate FiO2 01/20/17 09:49 64 16 96 30 01/20/17 07:30 98.7 01/20/17 07:00 132/58 01/19/17 20:00 Mechanical Ventilator Intake and Output 01/19/17 01/19/17 01/20/17 15:00 23:00 07:00 Intake Total 1570 ml 290 ml 370 ml Output Total 2575 ml 250 ml 175 ml Balance -1005 ml 40 ml 195 ml Exam Review of Systems: CONSTITUTIONAL: No fevers, chills. PULMONARY: intubated CARDIOVASCULAR: No obvious chest pain/palpitations GASTROINTESTINAL: No nausea/vomiting. GENITOURINARY: No hematuria/dysuria. MUSCULOSKELETAL: No obvious myagias/arthalgias. PSYCHIATRIC: The patient denies depression. NEUROLOGIC: No weakness Constitutional: alert, oriented Psych: no complaints Head: normocephalic ENMT: mucosa pink and moist Neck: jvd, supple Respiratory: clear to auscultation Cardiovascular: regular rate and rhythm Gastrointestinal: non-tender, soft Musculoskeletal: muscle tone (normal) Extremities: other (encephalopathy) Neurological: other (No focal deficits) Results Result Diagram: 01/20/17 0527 01/20/1727 Results 24 hrs Laboratory Tests Test 01/19/17 12:14 01/19/17 16:31 01/19/17 21:10 01/20/17 01:39 Bedside Glucose 182 195 165 197 Test 01/20/17 05:27 01/20/17 05:43 01/20/17 08:16 White Blood Count 12.3 H Red Blood Count 2.95 L Hemoglobin 9.0 L Hematocrit 28.1 L Mean Corpuscular Volume 95.3 Mean Corpuscular Hemoglobin 30.5 Mean Corpuscular Hemoglobin Concent 32.0 Red Cell Distribution Width 13.2 Platelet Count 170 Mean Platelet Volume 10.6 H Neutrophils % 81.3 H Lymphocytes % 9.5 L Monocytes % 7.7 Eosinophils % 0.5 Basophils % 0.1 Nucleated Red Blood Cells % 0.0 Neutrophils # 10.0 H Lymphocytes # 1.2 Monocytes # 1.0 H Eosinophils # 0.1 Basophils # 0.0 Nucleated Red Blood Cells # 0.0 Sodium Level 148 H Potassium Level 4.0 Chloride Level 107 Carbon Dioxide Level 32 H Anion Gap 13 Blood Urea Nitrogen 54 H Creatinine 1.96 H Glucose Level 126 # Calcium Level 8.7 Bedside Glucose 123 138 Medications Medications Current Medications Ondansetron HCl (Zofran Inj) 4 mg Q6H PRN IV NAUSEA AND/OR VOMITING Last administered on 12/13/16 01:13; Admin Dose 4 MG; Start 12/02/16 at 22:30 Miscellaneous Information 1 ea NOTE XX ; Start 12/02/16 at 23:00 Glucose (Glutose) 15 gm Q15M PRN PO DECREASED GLUCOSE; Start 12/02/16 at 23:00 Glucose (Glutose) 22.5 gm Q15M PRN PO DECREASED GLUCOSE; Start 12/02/16 at 23: 00 Dextrose (D50w Syringe) 25 ml Q15M PRN IV DECREASED GLUCOSE Last administered on 12/10/16 05:52; Admin Dose 25 ML; Start 12/02/16 at 23:00 Dextrose (D50w Syringe) 50 ml Q15M PRN IV DECREASED GLUCOSE; Start 12/02/16 at 23:00 Glucagon (Glucagen) 1 mg Q15M PRN IM DECREASED GLUCOSE; Start 12/02/16 at 23:00 Glucose (Glutose) 15 gm Q15M PRN BUCCAL DECREASED GLUCOSE; Start 12/02/16 at 23 :00 Gabapentin (Neurontin) 800 mg TID PO Last administered on 12/08/16 20:33; Admin Dose 800 MG; Start 12/03/16 at 09:00; Status Future Hold Benazepril HCl (Lotensin) 10 mg DAILY PO Last administered on 12/07/16 08:26; Admin Dose 10 MG; Start 12/04/16 at 09:00; Status Future Hold Acetaminophen (Tylenol Supp) 650 mg Q6H PRN [place] ELEVATED TEMPERATURE Last administered on 01/13/17 20:32; Admin Dose 650 MG; Start 12/09/16 at 17:00 Hydralazine HCl (Apresoline) 10 mg Q6H PRN IV SBP>150mm hg Last administered on 12/19/16 08:50; Admin Dose 10 MG; Start 12/11/16 at 10:30 Morphine Sulfate (morphine) 2 mg Q2H PRN IV PAIN LEVEL 4-7; Start 12/13/16 at 10 :00 Collagenase (Santyl) 1 applic DAILY TOP Last administered on 01/20/17 10:00; Admin Dose 1 APPLIC; Start 01/04/17 at 09:00 Insulin Aspart (Novolog Insulin Pen) NOVOLOG *MODERATE* ALGORI... Q4 SC Last administered on 01/20/17 01:54; Admin Dose 4 UNIT; Start 01/09/17 at 14:15 Diagnostic Test (Pha) 1 ea 1 ea 02 XX Last administered on 01/20/17 01:03; Admin Dose 1 EA; Start 01/10/17 at 02:00 Caspofungin/ Sodium Chloride (Cancidas/NS) 250 ml @ 250 mls/hr Q24H IVPB Last administered on 01/20/17 09:58; Admin Dose 250 MLS/HR; Start 01/13/17 at 09:30 Metoprolol Tartrate (Lopressor) 5 mg Q4 PRN IV FOR H.R>110; Start 01/12/17 at 17:30 Acetaminophen (Tylenol Liquid) 650 mg Q6H PRN NGT PAIN AND OR ELEVATED TEMP; Start 01/13/17 at 23:30 Apixaban (Eliquis) 2.5 mg BID NGT Last administered on 01/20/17 08:19; Admin Dose 2.5 MG; Start 01/13/17 at 21:00 Acetaminophen/ Hydrocodone Bitart ([place] (5/325)) 1 tab Q6H PRN NGT PAIN LEVEL 4-7; Start 01/13/17 at 23:30 Levetiracetam (Keppra Liquid) 1,000 mg DAILY NGT Last administered on 01/20/17 08:18; Admin Dose 1,000 MG; Start 01/14/17 at 09:00 Meclizine HCl (Antivert) 25 mg TID PRN NGT dizziness; Start 01/13/17 at 20:00 Zolpidem Tartrate (Ambien) 5 mg HS PRN NGT INSOMNIA; Start 01/13/17 at 20:00 Aspirin (Aspirin) 81 mg DAILY NGT Last administered on 01/20/17 08:19; Admin Dose 81 MG; Start 01/14/17 at 09:00 Docusate Sodium (Colace Liquid Cup) 100 mg BID NGT Last administered on 08:18; Admin Dose 100 MG; Start 01/13/17 at 21:00 Pantoprazole (Protonix Iv) 40 mg DAILY@06 IV Last administered on 01/20/17 05: 37; Admin Dose 40 MG; Start 01/14/17 at 06:00 Amiodarone HCl (Cordarone) 200 mg Q8 NGT Last administered on 01/20/17 05:37; Admin Dose 200 MG; Start 01/17/17 at 14:00 Insulin Glargine (Lantus) 40 unit DAILY@20 SC Last administered on 01/19/17 21: 21; Admin Dose 40 UNIT; Start 01/17/17 at 20:00 Metoprolol Tartrate (Lopressor) 25 mg BID NGT Last administered on 01/20/17 08: 19; Admin Dose 25 MG; Start 01/19/17 at 21:00 VICENTE LESLIE Jan 20, 2017 11:42
--- NOTE | 2017-01-20 12:19 | PN ---
Date/Time of Note Date/Time of Note DATE: 01/20/17 TIME: 12:12 Assessment/Plan VTE Prophylaxis VTE Prophylaxis Intervention: other Lines/Catheters IV C[facility]ter Type (from [facility] Urinary Cath still in place: No Assessment/Plan Assessment/Plan 1. 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 Dr. Villa is following in neurology consultation. 2. Status post cardiopulmonary arrest on 12/09/2016 and 01/08/2017. Continue supportive care. Continue ventilatory support. Dr. Rivera is following in pulmonology consultation. 2. Possible tracheobronchitis versus pneumonia. The patient is currently on antibiotics per infectious disease. Dr. Wilson's group is following in infectious disease consultation. Patient is currently on cefepime and caspofungin. Sputum cultures are positive for pseudomonas. 3. Acute kidney injury on chronic kidney disease which progressed to end-stage renal disease. Patient is currently on hemodialysis. Dr. Remy is following in nephrology consultation. 4. Paroxysmal atrial fibrillation. The patient is continued on aspirin, amiodarone and Eliquis. Dr. Cobian is following in cardiology consultation. 5. Diabetes mellitus type 2. Continue patient's Lantus with NovoLog sliding scale coverage with Accu-Cheks q.4h while patient on nasogastric tube feeding. 6. Diabetic foot ulcer. Continue current wound care. 7. Peripheral arterial disease 8. Osteomyelitis of the distal phalanx of the left great toe and left proximal phalanx. Completed a course of antibiotics for osteomyelitis. 9. Edema- BUE/BLE - Venous Doppler- fu Further recommendations based on clinical course. Plan of care discussed with Dr. Heredia. Subjective 24 Hr Interval Summary Free Text/Dictation nad, remains intubated, NGT intact. awaiting family meeting- regarding PEG tube , trach placement. at bedside- all Qs answered Exam/Review of Systems Vital Signs Vitals Vital Signs Date Time Temp Pulse Resp B/P Pulse Ox O2 Delivery O2 Flow Rate FiO2 01/20/17 09:49 64 16 96 30 01/20/17 07:30 98.7 01/20/17 07:00 132/58 01/19/17 20:00 Mechanical Ventilator Intake and Output 01/19/17 01/19/17 01/20/17 15:00 23:00 07:00 Intake Total 1570 ml 290 ml 370 ml Output Total 2575 ml 250 ml 175 ml Balance -1005 ml 40 ml 195 ml Exam Respiratory: diminished breath sounds Cardiovascular: nl pulses, regular rate and rhythm Gastrointestinal: soft Extremities: normal pulses Neurological: unresponsive Skin: other Results Result Diagram: 01/20/17 0527 01/20/17 0527 Results 24 hrs Laboratory Tests Test 01/19/17 12:14 01/19/17 16:31 01/19/17 21:10 01/20/17 01:39 Bedside Glucose 182 195 165 197 Test 01/20/17 05:27 01/20/17 05:43 01/20/17 08:16 White Blood Count 12.3 H Red Blood Count 2.95 L Hemoglobin 9.0 L Hematocrit 28.1 L Mean Corpuscular Volume 95.3 Mean Corpuscular Hemoglobin 30.5 Mean Corpuscular Hemoglobin Concent 32.0 Red Cell Distribution Width 13.2 Platelet Count 170 Mean Platelet Volume 10.6 H Neutrophils % 81.3 H Lymphocytes % 9.5 L Monocytes % 7.7 Eosinophils % 0.5 Basophils % 0.1 Nucleated Red Blood Cells % 0.0 Neutrophils # 10.0 H Lymphocytes # 1.2 Monocytes # 1.0 H Eosinophils # 0.1 Basophils # 0.0 Nucleated Red Blood Cells # 0.0 Sodium Level 148 H Potassium Level 4.0 Chloride Level 107 Carbon Dioxide Level 32 H Anion Gap 13 Blood Urea Nitrogen 54 H Creatinine 1.96 H Glucose Level 126 # Calcium Level 8.7 Bedside Glucose 123 138 Medications Medications Current Medications Ondansetron HCl (Zofran Inj) 4 mg Q6H PRN IV NAUSEA AND/OR VOMITING Last administered on 12/13/16 01:13; Admin Dose 4 MG; Start 12/02/16 at 22:30 Miscellaneous Information 1 ea NOTE XX ; Start 12/02/16 at 23:00 Glucose (Glutose) 15 gm Q15M PRN PO DECREASED GLUCOSE; Start 12/02/16 at 23:00 Glucose (Glutose) 22.5 gm Q15M PRN PO DECREASED GLUCOSE; Start 12/02/16 at 23: 00 Dextrose (D50w Syringe) 25 ml Q15M PRN IV DECREASED GLUCOSE Last administered on 12/10/16 05:52; Admin Dose 25 ML; Start 12/02/16 at 23:00 Dextrose (D50w Syringe) 50 ml Q15M PRN IV DECREASED GLUCOSE; Start 12/02/16 at 23:00 Glucagon (Glucagen) 1 mg Q15M PRN IM DECREASED GLUCOSE; Start 12/02/16 at 23:00 Glucose (Glutose) 15 gm Q15M PRN BUCCAL DECREASED GLUCOSE; Start 12/02/16 at 23 :00 Gabapentin (Neurontin) 800 mg TID PO Last administered on 12/08/16 20:33; Admin Dose 800 MG; Start 12/03/16 at 09:00; Status Future Hold Benazepril HCl (Lotensin) 10 mg DAILY PO Last administered on 12/07/16 08:26; Admin Dose 10 MG; Start 12/04/16 at 09:00; Status Future Hold Acetaminophen (Tylenol Supp) 650 mg Q6H PRN [place] ELEVATED TEMPERATURE Last administered on 01/13/17 20:32; Admin Dose 650 MG; Start 12/09/16 at 17:00 Hydralazine HCl (Apresoline) 10 mg Q6H PRN IV SBP>150mm hg Last administered on 12/19/16 08:50; Admin Dose 10 MG; Start 12/11/16 at 10:30 Morphine Sulfate (morphine) 2 mg Q2H PRN IV PAIN LEVEL 4-7; Start 12/13/16 at 10 :00 Collagenase (Santyl) 1 applic DAILY TOP Last administered on 01/20/17 10:00; Admin Dose 1 APPLIC; Start 01/04/17 at 09:00 Insulin Aspart (Novolog Insulin Pen) NOVOLOG *MODERATE* ALGORI... Q4 SC Last administered on 01/20/17 01:54; Admin Dose 4 UNIT; Start 01/09/17 at 14:15 Diagnostic Test (Pha) 1 ea 1 ea 02 XX Last administered on 01/20/17 01:03; Admin Dose 1 EA; Start 01/10/17 at 02:00 Caspofungin/ Sodium Chloride (Cancidas/NS) 250 ml @ 250 mls/hr Q24H IVPB Last administered on 01/20/17 09:58; Admin Dose 250 MLS/HR; Start 01/13/17 at 09:30 Metoprolol Tartrate (Lopressor) 5 mg Q4 PRN IV FOR H.R>110; Start 01/12/17 at 17:30 Acetaminophen (Tylenol Liquid) 650 mg Q6H PRN NGT PAIN AND [place] ELEVATED TEMP; Start 01/13/17 at 23:30 Apixaban (Eliquis) 2.5 mg BID NGT Last administered on 01/20/17 08:19; Admin Dose 2.5 MG; Start 01/13/17 at 21:00 Acetaminophen/ Hydrocodone Bitart ([place] (5/325)) 1 tab Q6H PRN NGT PAIN LEVEL 4-7; Start 01/13/17 at 23:30 Levetiracetam (Keppra Liquid) 1,000 mg DAILY NGT Last administered on 01/20/17 08:18; Admin Dose 1,000 MG; Start 01/14/17 at 09:00 Meclizine HCl (Antivert) 25 mg TID PRN NGT dizziness; Start 01/13/17 at 20:00 Zolpidem Tartrate (Ambien) 5 mg HS PRN NGT INSOMNIA; Start 01/13/17 at 20:00 Aspirin (Aspirin) 81 mg DAILY NGT Last administered on 01/20/17 08:19; Admin Dose 81 MG; Start 01/14/17 at 09:00 Docusate Sodium (Colace Liquid Cup) 100 mg BID NGT Last administered on 08:18; Admin Dose 100 MG; Start 01/13/17 at 21:00 Pantoprazole (Protonix Iv) 40 mg DAILY@06 IV Last administered on 01/20/17 05: 37; Admin Dose 40 MG; Start 01/14/17 at 06:00 Amiodarone HCl (Cordarone) 200 mg Q8 NGT Last administered on 01/20/17 05:37; Admin Dose 200 MG; Start 01/17/17 at 14:00 Insulin Glargine (Lantus) 40 unit DAILY@20 SC Last administered on 01/19/17 21: 21; Admin Dose 40 UNIT; Start 01/17/17 at 20:00 Metoprolol Tartrate (Lopressor) 25 mg BID NGT Last administered on 01/20/17 08: 19; Admin Dose 25 MG; Start 01/19/17 at 21:00 YULIANA SIMMONS Jan 20, 2017 12:19
--- NOTE | 2017-01-20 14:22 | RADRPT ---
PROCEDURE: US Lower extremity Venous. CLINICAL INDICATION: Bilateral lower extremity edema TECHNIQUE: Multiple sonographic images of the bilateral lower extremity deep venous system was obt ained utilizing grayscale, color-flow, compressive sonography and doppler imaging with augmentation. The images were reviewed on a PACS workstation. COMPARISON: None. FINDINGS: There is normal compressibility and flow within the bilateral common femoral, femoral , posterior ti bial and popliteal veins. RPTAT: AA IMPRESSION: No sonographic evidence for deep venous thrombosis. .Alli Peterson MD, MD Date Time Electronically viewed and signed by .Alli Peterson MD, on 01/20/2017 14:21 .S/
--- NOTE | 2017-01-20 15:40 | RADRPT ---
PROCEDURE: US upper extremity Venous. CLINICAL INDICATION: Bilateral arm edema and pain TECHNIQUE: Multiple sonographic images of the bilateral upper extremity venous system was obtained utilizing grayscale, color-flow, compressive sonography and doppler imaging with augmentation. The images were reviewed on a PACS workstation. COMPARISON: None. FINDINGS: There is normal compressibility and flow within the bilateral internal jugular vein, subclavian vein , axillary vein, brachial, basilic, cephalic, radial and ulnar veins. RPTAT: AA IMPRESSION: No sonographic evidence for venous thrombosis. .Alli Peterson MD, MD Date Time Electronically viewed and signed by .Alli Peterson MD, MD on 01/20/2017 15:40 .S/
--- NOTE | 2017-01-20 16:47 | CONS ---
Date/Time of Note Date/Time of Note DATE: 01/20/17 TIME: 16:46 Assessment/Plan Assessment/Plan Chief Complaint/Hosp Course - recurrent cardiopulmonary arrest on 12/09/2016 and on 01/08/2017 - sepsis due to possible tracheobronchitis/pneumonia - possible tracheobronchitis/pneumonia due to pseudomonas - s/p recurrent sepsis - 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 Blood cultures from HD catheter on 12/13/2016 are negative to date. 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 MRI on 12/06/2016 and bone scan on showed 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 and left fourth proximal phalanx. superficial swab grew inna only. At present, no e/o persistent infection - recurrent pleural effusion - s/p right pleural effusion s/p thoracentesis with .9L removed on 12/16/2016; ( Note: there is no pleural fluid cx since orders were placed after Right thoracentesis, and Left thoracentesis was not performed on 12/17/16 d/t insufficient fluid) - funguria - ARANZA on CKD that progressed to ESRD and started on HD from 12/09/2016 - oliguria - improved - A fib -> PAF - small nonreversible perfusion abnormality in the inferoapical and inferior carver; EF 36% per Lexiscan 12/24/2016 - severe , EF 40-45% per TTE 12/17/16 - DM - Hgb A1c 8.7% - HTN associated with DM - recurrent episodes of respiratory failure - acute encephalopathy with anoxic brain injury - stage 3 decubitus ulcer of coccyx without evidence of infection - urinary retention recommendations: - f/u EEG results - family decision - f/u all cxs - continue renally dosed cefepime for pseudomonas (01/15/2017-) - Pt completed 6 weeks of antibiotics to treat 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 and left fourth proximal phalanx: 12/03/2016-01/15/2017 (s/p pip/tazo 12/03/16-01/08/17) - continue local wound care of L 1st toe and coccyx Problems: Consultation Date/Type/Reason Admit Date/Time Dec 02, 2016 at 21:01 Type of Consultation: id Referring Provider: VIET PARKER MD 24 HR Interval Summary Constitutional: febrile Exam/Review of Systems Vital Signs Vitals Vital Signs Date Time Temp Pulse Resp B/P Pulse Ox O2 Delivery O2 Flow Rate FiO2 01/20/17 16:00 98.7 65 16 120/52 100 01/20/17 15:35 30 01/19/17 20:00 Mechanical Ventilator Intake and Output 01/19/17 01/19/17 01/20/17 14:59 22:59 06:59 Intake Total 1570 ml 290 ml 400 ml Output Total 2575 ml 250 ml 175 ml Balance -1005 ml 40 ml 225 ml Results Result Diagram: 01/20/17 0527 01/20/17 0527 Results 24 hrs Laboratory Tests Test 01/19/17 21:10 01/20/17 01:39 01/20/17 05:27 01/20/17 05:43 Bedside Glucose 165 197 123 White Blood Count 12.3 H Red Blood Count 2.95 L Hemoglobin 9.0 L Hematocrit 28.1 L Mean Corpuscular Volume 95.3 Mean Corpuscular Hemoglobin 30.5 Mean Corpuscular Hemoglobin Concent 32.0 Red Cell Distribution Width 13.2 Platelet Count 170 Mean Platelet Volume 10.6 H Neutrophils % 81.3 H Lymphocytes % 9.5 L Monocytes % 7.7 Eosinophils % 0.5 Basophils % 0.1 Nucleated Red Blood Cells % 0.0 Neutrophils # 10.0 H Lymphocytes # 1.2 Monocytes # 1.0 H Eosinophils # 0.1 Basophils # 0.0 Nucleated Red Blood Cells # 0.0 Sodium Level 148 H Potassium Level 4.0 Chloride Level 107 Carbon Dioxide Level 32 H Anion Gap 13 Blood Urea Nitrogen 54 H Creatinine 1.96 H Glucose Level 126 # Calcium Level 8.7 Test 01/20/17 08:16 01/20/17 13:23 Bedside Glucose 138 184 Medications Medications Current Medications Ondansetron HCl (Zofran Inj) 4 mg Q6H PRN IV NAUSEA AND/OR VOMITING Last administered on 12/13/16 01:13; Admin Dose 4 MG; Start 12/02/16 at 22:30 Miscellaneous Information 1 ea NOTE XX ; Start 12/02/16 at 23:00 Glucose (Glutose) 15 gm Q15M PRN PO DECREASED GLUCOSE; Start 12/02/16 at 23:00 Glucose (Glutose) 22.5 gm Q15M PRN PO DECREASED GLUCOSE; Start 12/02/16 at 23: 00 Dextrose (D50w Syringe) 25 ml Q15M PRN IV DECREASED GLUCOSE Last administered on 12/10/16 05:52; Admin Dose 25 ML; Start 12/02/16 at 23:00 Dextrose (D50w Syringe) 50 ml Q15M PRN IV DECREASED GLUCOSE; Start 12/02/16 at 23:00 Glucagon (Glucagen) 1 mg Q15M PRN IM DECREASED GLUCOSE; Start 12/02/16 at 23:00 Glucose (Glutose) 15 gm Q15M PRN BUCCAL DECREASED GLUCOSE; Start 12/02/16 at 23 :00 Gabapentin (Neurontin) 800 mg TID PO Last administered on 12/08/16 20:33; Admin Dose 800 MG; Start 12/03/16 at 09:00; Status Future Hold Benazepril HCl (Lotensin) 10 mg DAILY PO Last administered on 12/07/16 08:26; Admin Dose 10 MG; Start 12/04/16 at 09:00; Status Future Hold Acetaminophen (Tylenol Supp) 650 mg Q6H PRN [place] ELEVATED TEMPERATURE Last administered on 01/13/17 20:32; Admin Dose 650 MG; Start 12/09/16 at 17:00 Hydralazine HCl (Apresoline) 10 mg Q6H PRN IV SBP>150mm hg Last administered on 12/19/16 08:50; Admin Dose 10 MG; Start 12/11/16 at 10:30 Morphine Sulfate (morphine) 2 mg Q2H PRN IV PAIN LEVEL 4-7; Start 12/13/16 at 10 :00 Collagenase (Santyl) 1 applic DAILY TOP Last administered on 01/20/17 10:00; Admin Dose 1 APPLIC; Start 01/04/17 at 09:00 Insulin Aspart (Novolog Insulin Pen) NOVOLOG *MODERATE* ALGORI... Q4 SC Last administered on 01/20/17 13:26; Admin Dose 4 UNIT; Start 01/09/17 at 14:15 Diagnostic Test (Pha) 1 ea 1 ea 02 XX Last administered on 01/20/17 01:03; Admin Dose 1 EA; Start 01/10/17 at 02:00 Caspofungin/ Sodium Chloride (Cancidas/NS) 250 ml @ 250 mls/hr Q24H IVPB Last administered on 01/20/17 09:58; Admin Dose 250 MLS/HR; Start 01/13/17 at 09:30 Metoprolol Tartrate (Lopressor) 5 mg Q4 PRN IV FOR H.R>110; Start 01/12/17 at 17:30 Acetaminophen (Tylenol Liquid) 650 mg Q6H PRN NGT PAIN AND OR ELEVATED TEMP; Start 01/13/17 at 23:30 Apixaban (Eliquis) 2.5 mg BID NGT Last administered on 01/20/17 08:19; Admin Dose 2.5 MG; Start 01/13/17 at 21:00 Acetaminophen/ Hydrocodone Bitart ([place] (5/325)) 1 tab Q6H PRN NGT PAIN LEVEL 4-7; Start 01/13/17 at 23:30 Levetiracetam (Keppra Liquid) 1,000 mg DAILY NGT Last administered on 01/20/17 08:18; Admin Dose 1,000 MG; Start 01/14/17 at 09:00 Meclizine HCl (Antivert) 25 mg TID PRN NGT dizziness; Start 01/13/17 at 20:00 Zolpidem Tartrate (Ambien) 5 mg HS PRN NGT INSOMNIA; Start 01/13/17 at 20:00 Aspirin (Aspirin) 81 mg DAILY NGT Last administered on 01/20/17 08:19; Admin Dose 81 MG; Start 01/14/17 at 09:00 Docusate Sodium (Colace Liquid Cup) 100 mg BID NGT Last administered on 08:18; Admin Dose 100 MG; Start 01/13/17 at 21:00 Pantoprazole (Protonix Iv) 40 mg DAILY@06 IV Last administered on 01/20/17 05: 37; Admin Dose 40 MG; Start 01/14/17 at 06:00 Amiodarone HCl (Cordarone) 200 mg Q8 NGT Last administered on 01/20/17 14:14; Admin Dose 200 MG; Start 01/17/17 at 14:00 Insulin Glargine (Lantus) 40 unit DAILY@20 SC Last administered on 01/19/17 21: 21; Admin Dose 40 UNIT; Start 01/17/17 at 20:00 Metoprolol Tartrate (Lopressor) 25 mg BID NGT Last administered on 01/20/17 08: 19; Admin Dose 25 MG; Start 01/19/17 at 21:00 NIKHIL RAM MD Jan 20, 2017 16:47
--- NOTE | 2017-01-20 17:07 | CONS ---
Date/Time of Note Date/Time of Note DATE: 01/20/17 TIME: 17:06 Assessment/Plan Assessment/Plan Additional Assessment/Plan -S/p cardiopulmonary arrest on 12/09/2016 and on 01/08/2017 - 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 Blood cultures from HD catheter on 12/13/2016 are negative to date. 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 MRI on 12/06/2016 and bone scan on showed 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 and left fourth proximal phalanx. superficial swab grew inna only - s/p right pleural effusion s/p thoracentesis with .9L removed on 12/16/2016 - severe , EF 40-45% per TTE 12/17/16 - DM - Hgb A1c 8.7% - HTN associated with DM Plan: Plan for HD tomorrow S/p EEG showed epileptiform activity- stared on keppra by Neurology - poor prognosis for meaningful recovery as per Neurology S/P family metting on 01/16/17- Full Code- another family meeting tomorrow pt has severe , very labile BP sometimes with HD Consultation Date/Type/Reason Admit Date/Time Dec 02, 2016 at 21:01 Initial Consult Date Type of Consultation: NEPHROLOGY Referring Provider: VIET PARKER MD 24 HR Interval Summary Free Text/Dictation plan for HD tomorrow Exam/Review of Systems Vital Signs Vitals Vital Signs Date Time Temp Pulse Resp B/P Pulse Ox O2 Delivery O2 Flow Rate FiO2 01/20/17 16:00 98.7 65 16 120/52 100 01/20/17 15:35 30 01/19/17 20:00 Mechanical Ventilator Intake and Output 01/19/17 01/19/17 01/20/17 15:00 23:00 07:00 Intake Total 1570 ml 290 ml 400 ml Output Total 2575 ml 250 ml 175 ml Balance -1005 ml 40 ml 225 ml Results Result Diagram: 01/20/17 0527 01/20/17 0527 Results 24 hrs Laboratory Tests Test 01/19/17 21:10 01/20/17 01:39 01/20/17 05:27 01/20/17 05:43 Bedside Glucose 165 197 123 White Blood Count 12.3 H Red Blood Count 2.95 L Hemoglobin 9.0 L Hematocrit 28.1 L Mean Corpuscular Volume 95.3 Mean Corpuscular Hemoglobin 30.5 Mean Corpuscular Hemoglobin Concent 32.0 Red Cell Distribution Width 13.2 Platelet Count 170 Mean Platelet Volume 10.6 H Neutrophils % 81.3 H Lymphocytes % 9.5 L Monocytes % 7.7 Eosinophils % 0.5 Basophils % 0.1 Nucleated Red Blood Cells % 0.0 Neutrophils # 10.0 H Lymphocytes # 1.2 Monocytes # 1.0 H Eosinophils # 0.1 Basophils # 0.0 Nucleated Red Blood Cells # 0.0 Sodium Level 148 H Potassium Level 4.0 Chloride Level 107 Carbon Dioxide Level 32 H Anion Gap 13 Blood Urea Nitrogen 54 H Creatinine 1.96 H Glucose Level 126 # Calcium Level 8.7 Test 01/20/17 08:16 01/20/17 13:23 Bedside Glucose 138 184 Medications Medications Current Medications Ondansetron HCl (Zofran Inj) 4 mg Q6H PRN IV NAUSEA AND/OR VOMITING Last administered on 12/13/16 01:13; Admin Dose 4 MG; Start 12/02/16 at 22:30 Miscellaneous Information 1 ea NOTE XX ; Start 12/02/16 at 23:00 Glucose (Glutose) 15 gm Q15M PRN PO DECREASED GLUCOSE; Start 12/02/16 at 23:00 Glucose (Glutose) 22.5 gm Q15M PRN PO DECREASED GLUCOSE; Start 12/02/16 at 23: 00 Dextrose (D50w Syringe) 25 ml Q15M PRN IV DECREASED GLUCOSE Last administered on 12/10/16 05:52; Admin Dose 25 ML; Start 12/02/16 at 23:00 Dextrose (D50w Syringe) 50 ml Q15M PRN IV DECREASED GLUCOSE; Start 12/02/16 at 23:00 Glucagon (Glucagen) 1 mg Q15M PRN IM DECREASED GLUCOSE; Start 12/02/16 at 23:00 Glucose (Glutose) 15 gm Q15M PRN BUCCAL DECREASED GLUCOSE; Start 12/02/16 at 23 :00 Gabapentin (Neurontin) 800 mg TID PO Last administered on 12/08/16 20:33; Admin Dose 800 MG; Start 12/03/16 at 09:00; Status Future Hold Benazepril HCl (Lotensin) 10 mg DAILY PO Last administered on 12/07/16 08:26; Admin Dose 10 MG; Start 12/04/16 at 09:00; Status Future Hold Acetaminophen (Tylenol Supp) 650 mg Q6H PRN [place] ELEVATED TEMPERATURE Last administered on 01/13/17 20:32; Admin Dose 650 MG; Start 12/09/16 at 17:00 Hydralazine HCl (Apresoline) 10 mg Q6H PRN IV SBP>150mm hg Last administered on 12/19/16 08:50; Admin Dose 10 MG; Start 12/11/16 at 10:30 Morphine Sulfate (morphine) 2 mg Q2H PRN IV PAIN LEVEL 4-7; Start 12/13/16 at 10 :00 Collagenase (Santyl) 1 applic DAILY TOP Last administered on 01/20/17 10:00; Admin Dose 1 APPLIC; Start 01/04/17 at 09:00 Insulin Aspart (Novolog Insulin Pen) NOVOLOG *MODERATE* ALGORI... Q4 SC Last administered on 01/20/17 13:26; Admin Dose 4 UNIT; Start 01/09/17 at 14:15 Diagnostic Test (Pha) 1 ea 1 ea 02 XX Last administered on 01/20/17 01:03; Admin Dose 1 EA; Start 01/10/17 at 02:00 Caspofungin/ Sodium Chloride (Cancidas/NS) 250 ml @ 250 mls/hr Q24H IVPB Last administered on 01/20/17 09:58; Admin Dose 250 MLS/HR; Start 01/13/17 at 09:30 Metoprolol Tartrate (Lopressor) 5 mg Q4 PRN IV FOR H.R>110; Start 01/12/17 at 17:30 Acetaminophen (Tylenol Liquid) 650 mg Q6H PRN NGT PAIN AND OR ELEVATED TEMP; Start 01/13/17 at 23:30 Apixaban (Eliquis) 2.5 mg BID NGT Last administered on 01/20/17 08:19; Admin Dose 2.5 MG; Start 01/13/17 at 21:00 Acetaminophen/ Hydrocodone Bitart ([place] (5/325)) 1 tab Q6H PRN NGT PAIN LEVEL 4-7; Start 01/13/17 at 23:30 Levetiracetam (Keppra Liquid) 1,000 mg DAILY NGT Last administered on 01/20/17 08:18; Admin Dose 1,000 MG; Start 01/14/17 at 09:00 Meclizine HCl (Antivert) 25 mg TID PRN NGT dizziness; Start 01/13/17 at 20:00 Zolpidem Tartrate (Ambien) 5 mg HS PRN NGT INSOMNIA; Start 01/13/17 at 20:00 Aspirin (Aspirin) 81 mg DAILY NGT Last administered on 01/20/17 08:19; Admin Dose 81 MG; Start 01/14/17 at 09:00 Docusate Sodium (Colace Liquid Cup) 100 mg BID NGT Last administered on 08:18; Admin Dose 100 MG; Start 01/13/17 at 21:00 Pantoprazole (Protonix Iv) 40 mg DAILY@06 IV Last administered on 01/20/17 05: 37; Admin Dose 40 MG; Start 01/14/17 at 06:00 Amiodarone HCl (Cordarone) 200 mg Q8 NGT Last administered on 01/20/17 14:14; Admin Dose 200 MG; Start 01/17/17 at 14:00 Insulin Glargine (Lantus) 40 unit DAILY@20 SC Last administered on 01/19/17 21: 21; Admin Dose 40 UNIT; Start 01/17/17 at 20:00 Metoprolol Tartrate 25 mg 25 mg BID NGT Last administered on 01/20/17 08:19; Admin Dose 25 MG; Start 01/19/17 at 21:00 Cefepime HCl (Maxipime 1gm/50 ml (Pmx)) 50 ml @ 100 mls/hr Q24H IVPB ; Start at 17:00 TASHIA MCGARRY MD Jan 20, 2017 17:07
[2017-01-20] MEDS: INSULIN GLARGINE [LANtus] 3 ML PEN SC SCH (20:36)
[2017-01-21] VITALS (47 sets, daily range): BP systolic 91–126; BP diastolic 37–75; PULSE 57–100; RESP 9–18
[2017-01-21] MEDS: INSULIN ASPART [NOVOLOG] 3 ML PEN SC SCH ×6 (01:09→21:12)
[2017-01-21] MEDS: ALBUTEROL 18 GM INHALER INH SCH ×4 (02:13→19:35)
[2017-01-21] MEDS: ACCU-CHEK XX SCH (02:32)
[2017-01-21] MEDS: PANTOPRAZOLE 40 MG INJ IV SCH (05:43)
[2017-01-21] MEDS: AMIODARONE 200 MG TAB NGT SCH ×3 (05:49→22:24)
[2017-01-21 07:02] LABS: ADD SCAN DIFF NO
[2017-01-21 07:06] LABS: BASOPHILS % 0.1 % (0.0-2.0); EOSINOPHILS # 0.1 10^3/ul (0.0-0.5); EOSINOPHILS % 0.9 % (0.0-7.0); HEMATOCRIT 25.4 % (42.0-52.0); HEMOGLOBIN 8.2 g/dl (14.0-18.0); LYMPHOCYTES # 1.4 10^3/ul (0.8-2.9); LYMPHOCYTES % 13.5 % (15.0-51.0); MEAN CORPUSCULAR HEMOGLOBIN 30.8 pg (29.0-33.0); MEAN CORPUSCULAR HGB CONC 32.3 g/dl (32.0-37.0); MEAN CORPUSCULAR VOLUME 95.5 fl (82.0-101.0); MEAN PLATELET VOLUME 10.8 fl (7.4-10.4); MONOCYTE # 0.9 10^3/ul (0.3-0.9); MONOCYTES % 8.3 % (0.0-11.0); NEUTROPHIL # 8.1 10^3/ul (1.6-7.5); NEUTROPHILS % 76.4 % (39.0-77.0); PLATELET COUNT 160 10^3/UL (140-415); RED BLOOD COUNT 2.66 10^6/ul (4.70-6.10); RED CELL DISTRIBUTION WIDTH 13.3 % (11.5-14.5); WHITE BLOOD COUNT 10.6 10^3/ul (4.8-10.8)
[2017-01-21 07:31] LABS: CALCIUM 8.6 mg/dl (8.4-10.2); CREATININE 2.25 mg/dl (0.61-1.24); POTASSIUM 4.1 mmol/L (3.5-5.1)
[2017-01-21] MEDS: METOPROLOL 25 MG TAB NGT SCH ×2 (08:42→21:10)
--- NOTE | 2017-01-21 08:54 | CONS ---
Date/Time of Note Date/Time of Note DATE: 01/21/17 TIME: 08:40 Assessment/Plan Assessment/Plan Additional Assessment/Plan Ventilator setting; AC of 16, tidal volume 500, 30% FiO2. Assessment recommendations; next 1. Patient admitted for recurrent respiratory failure this episode likely exacerbated by flash pulmonary edema, patient status post CPR with resulting severe anoxic brain injury. 2. Patient initially admitted for cellulitis involving the left fifth toe patient has completed a prolonged antibiotic course. 3. Completely clear chest x-ray, patient afebrile with normal white cell count. 4. Renal failure, on hemodialysis. Patient likely would need to have a tracheostomy and G-tube placed. Consider stopping antibiotics. Consultation Date/Type/Reason Admit Date/Time Dec 02, 2016 at 21:01 Initial Consult Date 12/03/16 Type of Consultation: Pulmonary/critical care Referring Provider: VIET PARKER MD 24 HR Interval Summary Free Text/Dictation Patient condition remains tenuous at best. Remains essentially unresponsive. Has remained hemodynamically stable. General exam; elderly male, on ventilator via endotracheal tube, currently unresponsive and in no distress. Exam/Review of Systems Vital Signs Vitals Vital Signs Date Time Temp Pulse Resp B/P Pulse Ox O2 Delivery O2 Flow Rate FiO2 01/21/17 08:25 66 01/21/17 06:00 9 120/50 99 01/21/17 05:09 30 01/21/17 00:00 98.5 01/20/17 20:00 Mechanical Ventilator Intake and Output 01/20/17 01/20/17 01/21/17 15:00 23:00 07:00 Intake Total 540 ml 340 ml 310 ml Output Total 400 ml 330 ml 210 ml Balance 140 ml 10 ml 100 ml Exam HEENT exam is; supple neck, no JVD. No lymphadenopathy. Midline trachea. No thyromegaly. Orally intubated. Patient is edentulous. Chest examination; clear to auscultation. S1-S2 audible, no murmurs. Regular rhythm. Abdomen examination; soft, nondistended. No organomegaly. Bowel sounds audible. Extremity exam; no peripheral edema. 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 Results Result Diagram: 01/21/17 0535 01/21/17 0535 Results 24 hrs Laboratory Tests Test 01/20/17 13:23 01/20/17 17:48 01/20/17 20:41 01/21/17 01:06 Bedside Glucose 184 153 198 168 Test 01/21/17 05:35 01/21/17 05:48 White Blood Count 10.6 Red Blood Count 2.66 L Hemoglobin 8.2 L Hematocrit 25.4 L Mean Corpuscular Volume 95.5 Mean Corpuscular Hemoglobin 30.8 Mean Corpuscular Hemoglobin Concent 32.3 Red Cell Distribution Width 13.3 Platelet Count 160 Mean Platelet Volume 10.8 H Neutrophils % 76.4 Lymphocytes % 13.5 L Monocytes % 8.3 Eosinophils % 0.9 Basophils % 0.1 Nucleated Red Blood Cells % 0.0 Neutrophils # 8.1 H Lymphocytes # 1.4 Monocytes # 0.9 Eosinophils # 0.1 Basophils # 0.0 Nucleated Red Blood Cells # 0.0 Sodium Level 148 H Potassium Level 4.1 Chloride Level 109 Carbon Dioxide Level 31 Anion Gap 12 Blood Urea Nitrogen 66 H Creatinine 2.25 H Glucose Level 105 Calcium Level 8.6 Bedside Glucose 113 Medications Medications Current Medications Ondansetron HCl (Zofran Inj) 4 mg Q6H PRN IV NAUSEA AND/OR VOMITING Last administered on 12/13/16 01:13; Admin Dose 4 MG; Start 12/02/16 at 22:30 Miscellaneous Information 1 ea NOTE XX ; Start 12/02/16 at 23:00 Glucose (Glutose) 15 gm Q15M PRN PO DECREASED GLUCOSE; Start 12/02/16 at 23:00 Glucose (Glutose) 22.5 gm Q15M PRN PO DECREASED GLUCOSE; Start 12/02/16 at 23: 00 Dextrose (D50w Syringe) 25 ml Q15M PRN IV DECREASED GLUCOSE Last administered on 12/10/16 05:52; Admin Dose 25 ML; Start 12/02/16 at 23:00 Dextrose (D50w Syringe) 50 ml Q15M PRN IV DECREASED GLUCOSE; Start 12/02/16 at 23:00 Glucagon (Glucagen) 1 mg Q15M PRN IM DECREASED GLUCOSE; Start 12/02/16 at 23:00 Glucose (Glutose) 15 gm Q15M PRN BUCCAL DECREASED GLUCOSE; Start 12/02/16 at 23 :00 Gabapentin (Neurontin) 800 mg TID PO Last administered on 12/08/16 20:33; Admin Dose 800 MG; Start 12/03/16 at 09:00; Status Future Hold Benazepril HCl (Lotensin) 10 mg DAILY PO Last administered on 12/07/16 08:26; Admin Dose 10 MG; Start 12/04/16 at 09:00; Status Future Hold Acetaminophen (Tylenol Supp) 650 mg Q6H PRN [place] ELEVATED TEMPERATURE Last administered on 01/13/17 20:32; Admin Dose 650 MG; Start 12/09/16 at 17:00 Hydralazine HCl (Apresoline) 10 mg Q6H PRN IV SBP>150mm hg Last administered on 12/19/16 08:50; Admin Dose 10 MG; Start 12/11/16 at 10:30 Morphine Sulfate (morphine) 2 mg Q2H PRN IV PAIN LEVEL 4-7; Start 12/13/16 at 10 :00 Collagenase (Santyl) 1 applic DAILY TOP Last administered on 01/20/17 10:00; Admin Dose 1 APPLIC; Start 01/04/17 at 09:00 Insulin Aspart (Novolog Insulin Pen) NOVOLOG *MODERATE* ALGORI... Q4 SC Last administered on 01/21/17 01:09; Admin Dose 2 UNIT; Start 01/09/17 at 14:15 Diagnostic Test (Pha) 1 ea 1 ea 02 XX Last administered on 01/21/17 02:32; Admin Dose 1 EA; Start 01/10/17 at 02:00 Caspofungin/ Sodium Chloride (Cancidas/NS) 250 ml @ 250 mls/hr Q24H IVPB Last administered on 01/20/17 09:58; Admin Dose 250 MLS/HR; Start 01/13/17 at 09:30 Metoprolol Tartrate (Lopressor) 5 mg Q4 PRN IV FOR H.R>110; Start 01/12/17 at 17:30 Acetaminophen (Tylenol Liquid) 650 mg Q6H PRN NGT PAIN AND [place] ELEVATED TEMP; Start 01/13/17 at 23:30 Apixaban (Eliquis) 2.5 mg BID NGT Last administered on 01/20/17 20:33; Admin Dose 2.5 MG; Start 01/13/17 at 21:00 Acetaminophen/ Hydrocodone Bitart ([place] (5/325)) 1 tab Q6H PRN NGT PAIN LEVEL 4-7; Start 01/13/17 at 23:30 Levetiracetam (Keppra Liquid) 1,000 mg DAILY NGT Last administered on 01/20/17 08:18; Admin Dose 1,000 MG; Start 01/14/17 at 09:00 Meclizine HCl (Antivert) 25 mg TID PRN NGT dizziness; Start 01/13/17 at 20:00 Zolpidem Tartrate (Ambien) 5 mg HS PRN NGT INSOMNIA; Start 01/13/17 at 20:00 Aspirin (Aspirin) 81 mg DAILY NGT Last administered on 01/20/17 08:19; Admin Dose 81 MG; Start 01/14/17 at 09:00 Docusate Sodium (Colace Liquid Cup) 100 mg BID NGT Last administered on 20:32; Admin Dose 100 MG; Start 01/13/17 at 21:00 Pantoprazole (Protonix Iv) 40 mg DAILY@06 IV Last administered on 01/21/17 05: 43; Admin Dose 40 MG; Start 01/14/17 at 06:00 Amiodarone HCl (Cordarone) 200 mg Q8 NGT Last administered on 01/21/17 05:49; Admin Dose 200 MG; Start 01/17/17 at 14:00 Insulin Glargine (Lantus) 40 unit DAILY@20 SC Last administered on 01/20/17 20: 36; Admin Dose 40 UNIT; Start 01/17/17 at 20:00 Metoprolol Tartrate 25 mg 25 mg BID NGT Last administered on 01/20/17 20:33; Admin Dose 25 MG; Start 01/19/17 at 21:00 Cefepime HCl (Maxipime 1gm/50 ml (Pmx)) 50 ml @ 100 mls/hr Q24H IVPB Last administered on 01/20/17 17:49; Admin Dose 100 MLS/HR; Start 01/20/17 at 17:00 IKE MULLER Jan 21, 2017 08:54
[2017-01-21] MEDS: COLLAGENASE 30 GM TUBE TOP SCH (09:15)
[2017-01-21] MEDS ORDERED: HEPARIN 1000 UNITS/ML 10 ML INJ CATHETER ONE (10:00)
--- NOTE | 2017-01-21 10:47 | CONS ---
Date/Time of Note Date/Time of Note DATE: 01/21/17 TIME: 10:43 Assessment/Plan Assessment/Plan Chief Complaint/Hosp Course IMPRESSION: 1. Atrial fibrillation-Having episodes of PAF with reasonable rate control 2. Hypotension-borderline while on HD currently 3. Abnormal electrocardiogram with inferolateral T-wave inversions. 4. Respiratory failure-s/p intubation and remains thus 5. Nonhealing toe ulceration-vascular following 6. Peripheral arterial disease by arterial ultrasound of the lower extremities this admission. 7. Diabetes mellitus. 8. Fevers. 9. Positive troponin-downtrended 10.Bradycardia-improved/stable 11.-severe by echo 12.Cardiomyopathy-EF 40-45% by echo/36% by stress with no ischemia but positive scar. EF <30% by echo post arrest 14.Encephalopathy-anoxic 15. s/p cardiopulmonary arrest 01/08 Recc: -Tele -serial ecg -HD for volume removal as tolerated -Continue baby asa/eliquis -Continue PO amio in attempt to maintain SR -Continue BB as tolerated only following HR/BP closely -Will hold on afterload reduction given severe and thus fixed afterload at valve orifice -Wean vent as possible/tolerated Problems: Consultation Date/Type/Reason Admit Date/Time Dec 02, 2016 at 21:01 Initial Consult Date 12/03/16 Type of Consultation: Cardiology Reason for Consultation /CHF/cardiomyopathy Referring Provider: VIET PARKER MD Exam/Review of Systems Vital Signs Vitals Vital Signs Date Time Temp Pulse Resp B/P Pulse Ox O2 Delivery O2 Flow Rate FiO2 01/21/17 10:39 100 22 01/21/17 06:00 120/50 99 01/21/17 05:09 30 01/21/17 00:00 98.5 01/20/17 20:00 Mechanical Ventilator Intake and Output 01/20/17 01/20/17 01/21/17 15:00 23:00 07:00 Intake Total 540 ml 340 ml 310 ml Output Total 400 ml 330 ml 210 ml Balance 140 ml 10 ml 100 ml Exam Review of Systems: CONSTITUTIONAL: No fevers, chills. PULMONARY: intubated CARDIOVASCULAR: No obvious chest pain/palpitations GASTROINTESTINAL: No nausea/vomiting. GENITOURINARY: No hematuria/dysuria. MUSCULOSKELETAL: No obvioua myagias/arthalgias. PSYCHIATRIC: The patient denies depression. NEUROLOGIC: encephalopathic Constitutional: alert Psych: no complaints Head: normocephalic Eyes: nl conjunctiva ENMT: mucosa pink and moist Neck: jvd (9 cm water), supple Respiratory: diminished breath sounds (at bases/B) Cardiovascular: regular rate and rhythm Gastrointestinal: non-tender, soft Musculoskeletal: muscle tone (normal) Extremities: edema (none) Neurological: other (no focal deficits) Results Result Diagram: 01/21/1735 01/21/17 0535 Results 24 hrs Laboratory Tests Test 01/20/17 13:23 01/20/17 17:48 01/20/17 20:41 01/21/17 01:06 Bedside Glucose 184 153 198 168 Test 01/21/17 05:35 01/21/17 05:48 White Blood Count 10.6 Red Blood Count 2.66 L Hemoglobin 8.2 L Hematocrit 25.4 L Mean Corpuscular Volume 95.5 Mean Corpuscular Hemoglobin 30.8 Mean Corpuscular Hemoglobin Concent 32.3 Red Cell Distribution Width 13.3 Platelet Count 160 Mean Platelet Volume 10.8 H Neutrophils % 76.4 Lymphocytes % 13.5 L Monocytes % 8.3 Eosinophils % 0.9 Basophils % 0.1 Nucleated Red Blood Cells % 0.0 Neutrophils # 8.1 H Lymphocytes # 1.4 Monocytes # 0.9 Eosinophils # 0.1 Basophils # 0.0 Nucleated Red Blood Cells # 0.0 Sodium Level 148 H Potassium Level 4.1 Chloride Level 109 Carbon Dioxide Level 31 Anion Gap 12 Blood Urea Nitrogen 66 H Creatinine 2.25 H Glucose Level 105 Calcium Level 8.6 Bedside Glucose 113 Medications Medications Current Medications Ondansetron HCl (Zofran Inj) 4 mg Q6H PRN IV NAUSEA AND/OR VOMITING Last administered on 12/13/16 01:13; Admin Dose 4 MG; Start 12/02/16 at 22:30 Miscellaneous Information 1 ea NOTE XX ; Start 12/02/16 at 23:00 Glucose (Glutose) 15 gm Q15M PRN PO DECREASED GLUCOSE; Start 12/02/16 at 23:00 Glucose (Glutose) 22.5 gm Q15M PRN PO DECREASED GLUCOSE; Start 12/02/16 at 23: 00 Dextrose (D50w Syringe) 25 ml Q15M PRN IV DECREASED GLUCOSE Last administered on 12/10/16 05:52; Admin Dose 25 ML; Start 12/02/16 at 23:00 Dextrose (D50w Syringe) 50 ml Q15M PRN IV DECREASED GLUCOSE; Start 12/02/16 at 23:00 Glucagon (Glucagen) 1 mg Q15M PRN IM DECREASED GLUCOSE; Start 12/02/16 at 23:00 Glucose (Glutose) 15 gm Q15M PRN BUCCAL DECREASED GLUCOSE; Start 12/02/16 at 23 :00 Gabapentin (Neurontin) 800 mg TID PO Last administered on 12/08/16 20:33; Admin Dose 800 MG; Start 12/03/16 at 09:00; Status Future Hold Benazepril HCl (Lotensin) 10 mg DAILY PO Last administered on 12/07/16 08:26; Admin Dose 10 MG; Start 12/04/16 at 09:00; Status Future Hold Acetaminophen (Tylenol Supp) 650 mg Q6H PRN [place] ELEVATED TEMPERATURE Last administered on 01/13/17 20:32; Admin Dose 650 MG; Start 12/09/16 at 17:00 Hydralazine HCl (Apresoline) 10 mg Q6H PRN IV SBP>150mm hg Last administered on 12/19/16 08:50; Admin Dose 10 MG; Start 12/11/16 at 10:30 Morphine Sulfate (morphine) 2 mg Q2H PRN IV PAIN LEVEL 4-7; Start 12/13/16 at 10 :00 Collagenase (Santyl) 1 applic DAILY TOP Last administered on 01/20/17 10:00; Admin Dose 1 APPLIC; Start 01/04/17 at 09:00 Insulin Aspart (Novolog Insulin Pen) NOVOLOG *MODERATE* ALGORI... Q4 SC Last administered on 01/21/17 01:09; Admin Dose 2 UNIT; Start 01/09/17 at 14:15 Diagnostic Test (Pha) 1 ea 1 ea 02 XX Last administered on 01/21/17 02:32; Admin Dose 1 EA; Start 01/10/17 at 02:00 Caspofungin/ Sodium Chloride (Cancidas/NS) 250 ml @ 250 mls/hr Q24H IVPB Last administered on 01/20/17 09:58; Admin Dose 250 MLS/HR; Start 01/13/17 at 09:30 Metoprolol Tartrate (Lopressor) 5 mg Q4 PRN IV FOR H.R>110; Start 01/12/17 at 17:30 Acetaminophen (Tylenol Liquid) 650 mg Q6H PRN NGT PAIN AND OR ELEVATED TEMP; Start 01/13/17 at 23:30 Apixaban (Eliquis) 2.5 mg BID NGT Last administered on 01/20/17 20:33; Admin Dose 2.5 MG; Start 01/13/17 at 21:00 Acetaminophen/ Hydrocodone Bitart ([place] (5/325)) 1 tab Q6H PRN NGT PAIN LEVEL 4-7; Start 01/13/17 at 23:30 Levetiracetam (Keppra Liquid) 1,000 mg DAILY NGT Last administered on 01/20/17 08:18; Admin Dose 1,000 MG; Start 01/14/17 at 09:00 Meclizine HCl (Antivert) 25 mg TID PRN NGT dizziness; Start 01/13/17 at 20:00 Zolpidem Tartrate (Ambien) 5 mg HS PRN NGT INSOMNIA; Start 01/13/17 at 20:00 Aspirin (Aspirin) 81 mg DAILY NGT Last administered on 01/20/17 08:19; Admin Dose 81 MG; Start 01/14/17 at 09:00 Docusate Sodium (Colace Liquid Cup) 100 mg BID NGT Last administered on 20:32; Admin Dose 100 MG; Start 01/13/17 at 21:00 Pantoprazole (Protonix Iv) 40 mg DAILY@06 IV Last administered on 01/21/17 05: 43; Admin Dose 40 MG; Start 01/14/17 at 06:00 Amiodarone HCl (Cordarone) 200 mg Q8 NGT Last administered on 01/21/17 05:49; Admin Dose 200 MG; Start 01/17/17 at 14:00 Insulin Glargine (Lantus) 40 unit DAILY@20 SC Last administered on 01/20/17 20: 36; Admin Dose 40 UNIT; Start 01/17/17 at 20:00 Metoprolol Tartrate 25 mg 25 mg BID NGT Last administered on 01/20/17 20:33; Admin Dose 25 MG; Start 01/19/17 at 21:00 Cefepime HCl (Maxipime 1gm/50 ml (Pmx)) 50 ml @ 100 mls/hr Q24H IVPB Last administered on 01/20/17t 17:49; Admin Dose 100 MLS/HR; Start 01/20/17 at 17:00 VICENTE LESLIE Jan 21, 2017 10:47
[2017-01-21] MEDS: ASPIRIN 81 MG TAB NGT SCH (11:04)
[2017-01-21] MEDS: DOCUSATE SODIUM 10 MG/ML (10ML CUP) NGT SCH ×2 (11:05→21:09)
[2017-01-21] MEDS: APIXABAN 5 MG TABLET NGT SCH ×2 (11:06→21:09)
[2017-01-21] MEDS: CASPOFUNGIN 50 MG in SOD CHLORIDE 0.9% 250 ML IVPB SCH (11:06)
[2017-01-21] MEDS: LEVETIRACETAM (100 MG/ML) 5ML CUP NGT SCH (11:06)
--- NOTE | 2017-01-21 11:14 | CONS ---
Date/Time of Note Date/Time of Note DATE: 01/21/17 TIME: 11:14 Assessment/Plan Assessment/Plan Chief Complaint/Hosp Course - recurrent cardiopulmonary arrest on 12/09/2016 and on 01/08/2017 - sepsis due to possible tracheobronchitis/pneumonia - possible tracheobronchitis/pneumonia due to pseudomonas - s/p recurrent sepsis - 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 Blood cultures from HD catheter on 12/13/2016 are negative to date. 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 MRI on 12/06/2016 and bone scan on showed 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 and left fourth proximal phalanx. superficial swab grew inna only. At present, no e/o persistent infection - recurrent pleural effusion - s/p right pleural effusion s/p thoracentesis with .9L removed on 12/16/2016; ( Note: there is no pleural fluid cx since orders were placed after Right thoracentesis, and Left thoracentesis was not performed on 12/17/16 d/t insufficient fluid) - funguria - ARANZA on CKD that progressed to ESRD and started on HD from 12/09/2016 - oliguria - improved - A fib -> PAF - small nonreversible perfusion abnormality in the inferoapical and inferior carver; EF 36% per Lexiscan 12/24/2016 - severe , EF 40-45% per TTE 12/17/16 - DM - Hgb A1c 8.7% - HTN associated with DM - recurrent episodes of respiratory failure - acute encephalopathy with anoxic brain injury - stage 3 decubitus ulcer of coccyx without evidence of infection - urinary retention NOTE: Pt completed 6 weeks (12/03/2016-01/15/2017) of antibiotics to treat 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 and left fourth proximal phalanx ; s/p pip/tazo 12/03/16-01/08/17; linezolid 01/08/17-01/20/17; caspofungin 01/12/17-01/21/17. recommendations: - continue renally dosed cefepime for pseudomonas (01/15/2017-) - discontinue empiric caspofungin (01/12/2017-) - continue local wound care of L 1st toe and coccyx - await family decision; family meeting today at 1300 per SW note Management d/w [employer]INA Meehan and Dr. Wilson Critical care time spent: 35 min Problems: Consultation Date/Type/Reason Admit Date/Time Dec 02, 2016 at 21:01 Initial Consult Date 12/03/16 Type of Consultation: Infectious Disease Referring Provider: VIET PARKER MD 24 HR Interval Summary Free Text/Dictation Afebrile; unresponsive and remains clinically unchanged per d/w nursing staff; family meeting scheduled for today at 1300 per SW note. Unable to perform ROS due to pt's condition. Linezolid dc'd by Dr. Rivera yesterday. Subjective hx not possible: pt non-verbal, pt critical status Exam/Review of Systems Vital Signs Vitals Vital Signs Date Time Temp Pulse Resp B/P Pulse Ox O2 Delivery O2 Flow Rate FiO2 01/21/17 10:39 100 22 01/21/17 06:00 120/50 99 01/21/17 05:09 30 01/21/17 00:00 98.5 01/20/17 20:00 Mechanical Ventilator Intake and Output 01/20/17 01/20/17 01/21/17 15:00 23:00 07:00 Intake Total 540 ml 340 ml 310 ml Output Total 400 ml 330 ml 210 ml Balance 140 ml 10 ml 100 ml Exam Constitutional: frail, chronically debilitated, non-verbal Head: atraumatic, normocephalic Eyes: nl conjunctiva, nl lids, nl sclera ENMT: intubated, nl external ears & nose, other (NGT with tube feeds intact) Neck: other (Unable to assess; R IJ permacath with no e/o infection) Respiratory: clear to auscultation anteriorly Cardiovascular: regular rate and rhythm, systolic murmur Gastrointestinal: non-tender, soft Genitourinary - Male: other (condom catheter in place) Musculoskeletal: nl extremities to inspection Extremities: No clubbing, cyanosis or edema Neurological: unresponsive; dysconjugate gaze Skin: other (See nurse note for details - stage 3 coccygeal decub), rash or lesions (eschar on plantar aspect of L great toe - dressing c/d/i) Results Result Diagram: 01/21/17 0535 01/21/17 0535 Results 24 hrs Laboratory Tests Test 01/20/17 13:23 01/20/17 17:48 01/20/17 20:41 01/21/17 01:06 Bedside Glucose 184 153 198 168 Test 01/21/17 05:35 01/21/17 05:48 01/21/17 10:45 White Blood Count 10.6 Red Blood Count 2.66 L Hemoglobin 8.2 L Hematocrit 25.4 L Mean Corpuscular Volume 95.5 Mean Corpuscular Hemoglobin 30.8 Mean Corpuscular Hemoglobin Concent 32.3 Red Cell Distribution Width 13.3 Platelet Count 160 Mean Platelet Volume 10.8 H Neutrophils % 76.4 Lymphocytes % 13.5 L Monocytes % 8.3 Eosinophils % 0.9 Basophils % 0.1 Nucleated Red Blood Cells % 0.0 Neutrophils # 8.1 H Lymphocytes # 1.4 Monocytes # 0.9 Eosinophils # 0.1 Basophils # 0.0 Nucleated Red Blood Cells # 0.0 Sodium Level 148 H Potassium Level 4.1 Chloride Level 109 Carbon Dioxide Level 31 Anion Gap 12 Blood Urea Nitrogen 66 H Creatinine 2.25 H Glucose Level 105 Calcium Level 8.6 Bedside Glucose 113 158 Medications Medications Current Medications Ondansetron HCl (Zofran Inj) 4 mg Q6H PRN IV NAUSEA AND/OR VOMITING Last administered on 12/13/16 01:13; Admin Dose 4 MG; Start 12/02/16 at 22:30 Miscellaneous Information 1 ea NOTE XX ; Start 12/02/16 at 23:00 Glucose (Glutose) 15 gm Q15M PRN PO DECREASED GLUCOSE; Start 12/02/16 at 23:00 Glucose (Glutose) 22.5 gm Q15M PRN PO DECREASED GLUCOSE; Start 12/02/16 at 23: 00 Dextrose (D50w Syringe) 25 ml Q15M PRN IV DECREASED GLUCOSE Last administered on 12/10/16 05:52; Admin Dose 25 ML; Start 12/02/16 at 23:00 Dextrose (D50w Syringe) 50 ml Q15M PRN IV DECREASED GLUCOSE; Start 12/02/16 at 23:00 Glucagon (Glucagen) 1 mg Q15M PRN IM DECREASED GLUCOSE; Start 12/02/16 at 23:00 Glucose (Glutose) 15 gm Q15M PRN BUCCAL DECREASED GLUCOSE; Start 12/02/16 at 23 :00 Gabapentin (Neurontin) 800 mg TID PO Last administered on 12/08/16 20:33; Admin Dose 800 MG; Start 12/03/16 at 09:00; Status Future Hold Benazepril HCl (Lotensin) 10 mg DAILY PO Last administered on 12/07/16 08:26; Admin Dose 10 MG; Start 12/04/16 at 09:00; Status Future Hold Acetaminophen (Tylenol Supp) 650 mg Q6H PRN [place] ELEVATED TEMPERATURE Last administered on 01/13/17 20:32; Admin Dose 650 MG; Start 12/09/16 at 17:00 Hydralazine HCl (Apresoline) 10 mg Q6H PRN IV SBP>150mm hg Last administered on 12/19/16 08:50; Admin Dose 10 MG; Start 12/11/16 at 10:30 Morphine Sulfate (morphine) 2 mg Q2H PRN IV PAIN LEVEL 4-7; Start 12/13/16 at 10 :00 Collagenase (Santyl) 1 applic DAILY TOP Last administered on 01/20/17 10:00; Admin Dose 1 APPLIC; Start 01/04/17 at 09:00 Insulin Aspart (Novolog Insulin Pen) NOVOLOG *MODERATE* [place]I... Q4 SC Last administered on 01/21/17 11:05; Admin Dose 2 UNIT; Start 01/09/17 at 14:15 Diagnostic Test (Pha) 1 ea 1 ea 02 XX Last administered on 01/21/17 02:32; Admin Dose 1 EA; Start 01/10/17 at 02:00 Caspofungin/ Sodium Chloride (Cancidas/NS) 250 ml @ 250 mls/hr Q24H IVPB Last administered on 01/21/17 11:06; Admin Dose 250 MLS/HR; Start 01/13/17 at 09:30 Metoprolol Tartrate (Lopressor) 5 mg Q4 PRN IV FOR H.R>110; Start 01/12/17 at 17:30 Acetaminophen (Tylenol Liquid) 650 mg Q6H PRN NGT PAIN AND OR ELEVATED TEMP; Start 01/13/17 at 23:30 Apixaban (Eliquis) 2.5 mg BID NGT Last administered on 01/21/17 11:06; Admin Dose 2.5 MG; Start 01/13/17 at 21:00 Acetaminophen/ Hydrocodone Bitart ([place] (5/325)) 1 tab Q6H PRN NGT PAIN LEVEL 4-7; Start 01/13/17 at 23:30 Levetiracetam (Keppra Liquid) 1,000 mg DAILY NGT Last administered on 01/21/17 11:06; Admin Dose 1,000 MG; Start 01/14/17 at 09:00 Meclizine HCl (Antivert) 25 mg TID PRN NGT dizziness; Start 01/13/17 at 20:00 Zolpidem Tartrate (Ambien) 5 mg HS PRN NGT INSOMNIA; Start 01/13/17 at 20:00 Aspirin (Aspirin) 81 mg DAILY NGT Last administered on 01/21/17 11:04; Admin Dose 81 MG; Start 01/14/17 at 09:00 Docusate Sodium (Colace Liquid Cup) 100 mg BID NGT Last administered on 11:05; Admin Dose 100 MG; Start 01/13/17 at 21:00 Pantoprazole (Protonix Iv) 40 mg DAILY@06 IV Last administered on 01/21/17 05: 43; Admin Dose 40 MG; Start 01/14/17 at 06:00 Amiodarone HCl (Cordarone) 200 mg Q8 NGT Last administered on 01/21/17 05:49; Admin Dose 200 MG; Start 01/17/17 at 14:00 Insulin Glargine (Lantus) 40 unit DAILY@20 SC Last administered on 01/20/17 20: 36; Admin Dose 40 UNIT; Start 01/17/17 at 20:00 Metoprolol Tartrate 25 mg 25 mg BID NGT Last administered on 01/20/17 20:33; Admin Dose 25 MG; Start 01/19/17 at 21:00 Cefepime HCl (Maxipime 1gm/50 ml (Pmx)) 50 ml @ 100 mls/hr Q24H IVPB Last administered on 01/20/17t 17:49; Admin Dose 100 MLS/HR; Start 01/20/17 at 17:00 Procedures Procedures BUE/BLE venous doppler 01/20/17: negative for DVT EEG 01/17/17: This is an abnormal EEG due to the presence of generalized bihemispheric background slowing with intermittent epileptiform activity, which is consistent with encephalopathy. Please correlate these findings with the patient's clinical picture. YUMIKO ALATORRE NP Jan 21, 2017 11:14 YUMIKO ALATORRE NP Jan 21, 2017 11:14
--- NOTE | 2017-01-21 15:34 | PN ---
Date/Time of Note Date/Time of Note DATE: 01/21/17 TIME: 15:28 Assessment/Plan VTE Prophylaxis VTE Prophylaxis Intervention: SCD's Lines/Catheters IV [facility] Permacath Assessment/Plan Chief Complaint/Hosp Course Patient's continues to be orally intubated, on ventilatory support, with no change in neurological status. Multiple EEG are consistent with encephalopathy. Patient is being fed through the NG tube. Dr. Heredia had a family conference. Patient family agrees to proceed with tracheostomy and G- tube. Dr. Nichols ENT consult is requested for possible tracheostomy, Dr. Smith is asked to see patient for gastrostomy tube placement. ASSESSMENT AND PLAN: 1. 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 Dr. Villa is following in neurology consultation. 2. Status post cardiopulmonary arrest on 12/09/2016 and 01/08/2017. Continue supportive care. Continue ventilatory support. Dr. Rivera is following in pulmonology consultation. 2. Possible tracheobronchitis versus pneumonia. The patient is currently on antibiotics per infectious disease. Dr. Wilson's group is following in infectious disease consultation. Patient is currently on cefepime and caspofungin. Sputum cultures are positive for pseudomonas. 3. Acute kidney injury on chronic kidney disease which progressed to end-stage renal disease. Dr. Remy is following in nephrology consultation. Continue hemodialysis per nephrology. 4. Paroxysmal atrial fibrillation. The patient is continued on aspirin, amiodarone and Eliquis. Dr. Cobian is following in cardiology consultation. 5. Diabetes mellitus type 2. Continue patient's Lantus with NovoLog sliding scale coverage with Accu-Cheks q.4h while patient on nasogastric tube feeding. 6. Diabetic foot ulcer. Continue current wound care. 7. Peripheral arterial disease 8. Osteomyelitis of the distal phalanx of the left great toe and left proximal phalanx. Completed a course of antibiotics for osteomyelitis. Further recommendations based on clinical course. Plan of care discussed with Dr. Heredia. Problems: Exam/Review of Systems Vital Signs Vitals Vital Signs Date Time Temp Pulse Resp B/P Pulse Ox O2 Delivery O2 Flow Rate FiO2 01/21/17 13:00 67 16 93/55 100 01/21/17 05:09 30 01/21/17 00:00 98.5 01/20/17 20:00 Mechanical Ventilator Intake and Output 01/20/17 01/20/17 01/21/17 15:00 23:00 07:00 Intake Total 540 ml 340 ml 310 ml Output Total 400 ml 330 ml 210 ml Balance 140 ml 10 ml 100 ml Exam Constitutional: non-verbal Head: atraumatic, normocephalic Neck: supple Respiratory: diminished breath sounds Cardiovascular: nl pulses Gastrointestinal: non-tender, soft Extremities: normal pulses Neurological: unresponsive Results Result Diagram: 01/21/17 0535 01/21/17 0535 Results 24 hrs Laboratory Tests Test 01/20/17 17:48 01/20/17 20:41 01/21/17 01:06 01/21/17 05:35 Bedside Glucose 153 198 168 White Blood Count 10.6 Red Blood Count 2.66 L Hemoglobin 8.2 L Hematocrit 25.4 L Mean Corpuscular Volume 95.5 Mean Corpuscular Hemoglobin 30.8 Mean Corpuscular Hemoglobin Concent 32.3 Red Cell Distribution Width 13.3 Platelet Count 160 Mean Platelet Volume 10.8 H Neutrophils % 76.4 Lymphocytes % 13.5 L Monocytes % 8.3 Eosinophils % 0.9 Basophils % 0.1 Nucleated Red Blood Cells % 0.0 Neutrophils # 8.1 H Lymphocytes # 1.4 Monocytes # 0.9 Eosinophils # 0.1 Basophils # 0.0 Nucleated Red Blood Cells # 0.0 Sodium Level 148 H Potassium Level 4.1 Chloride Level 109 Carbon Dioxide Level 31 Anion Gap 12 Blood Urea Nitrogen 66 H Creatinine 2.25 H Glucose Level 105 Calcium Level 8.6 Test 01/21/17 05:48 01/21/17 10:45 01/21/17 13:25 Bedside Glucose 113 158 152 Medications Medications Current Medications Ondansetron HCl (Zofran Inj) 4 mg Q6H PRN IV NAUSEA AND/OR VOMITING Last administered on 12/13/16 01:13; Admin Dose 4 MG; Start 12/02/16 at 22:30 Miscellaneous Information 1 ea NOTE XX ; Start 12/02/16 at 23:00 Glucose (Glutose) 15 gm Q15M PRN PO DECREASED GLUCOSE; Start 12/02/16 at 23:00 Glucose (Glutose) 22.5 gm Q15M PRN PO DECREASED GLUCOSE; Start 12/02/16 at 23: 00 Dextrose (D50w Syringe) 25 ml Q15M PRN IV DECREASED GLUCOSE Last administered on 12/10/16 05:52; Admin Dose 25 ML; Start 12/02/16 at 23:00 Dextrose (D50w Syringe) 50 ml Q15M PRN IV DECREASED GLUCOSE; Start 12/02/16 at 23:00 Glucagon (Glucagen) 1 mg Q15M PRN IM DECREASED GLUCOSE; Start 12/02/16 at 23:00 Glucose (Glutose) 15 gm Q15M PRN BUCCAL DECREASED GLUCOSE; Start 12/02/16 at 23 :00 Gabapentin (Neurontin) 800 mg TID PO Last administered on 12/08/16 20:33; Admin Dose 800 MG; Start 12/03/16 at 09:00; Status Future Hold Benazepril HCl (Lotensin) 10 mg DAILY PO Last administered on 12/07/16 08:26; Admin Dose 10 MG; Start 12/04/16 at 09:00; Status Future Hold Acetaminophen (Tylenol Supp) 650 mg Q6H PRN [place] ELEVATED TEMPERATURE Last administered on 01/13/17 20:32; Admin Dose 650 MG; Start 12/09/16 at 17:00 Hydralazine HCl (Apresoline) 10 mg Q6H PRN IV SBP>150mm hg Last administered on 12/19/16 08:50; Admin Dose 10 MG; Start 12/11/16 at 10:30 Morphine Sulfate (morphine) 2 mg Q2H PRN IV PAIN LEVEL 4-7; Start 12/13/16 at 10 :00 Collagenase (Santyl) 1 applic DAILY TOP Last administered on 01/21/17 09:15; Admin Dose 1 APPLIC; Start 01/04/17 at 09:00 Insulin Aspart (Novolog Insulin Pen) NOVOLOG *MODERATE* ALGORI... Q4 SC Last administered on 01/21/17 13:32; Admin Dose 2 UNIT; Start 01/09/17 at 14:15 Diagnostic Test (Pha) 1 ea 1 ea 02 XX Last administered on 01/21/17 02:32; Admin Dose 1 EA; Start 01/10/17 at 02:00 Caspofungin/ Sodium Chloride ([place]/NS) 250 ml @ 250 mls/hr Q24H IVPB Last administered on 01/21/17 11:06; Admin Dose 250 MLS/HR; Start 01/13/17 at 09:30 Metoprolol Tartrate (Lopressor) 5 mg Q4 PRN IV FOR H.R>110; Start 01/12/17 at 17:30 Acetaminophen (Tylenol Liquid) 650 mg Q6H PRN NGT PAIN AND [place] ELEVATED TEMP; Start 01/13/17 at 23:30 Apixaban (Eliquis) 2.5 mg BID NGT Last administered on 01/21/17 11:06; Admin Dose 2.5 MG; Start 01/13/17 at 21:00 Acetaminophen/ Hydrocodone Bitart ([place] (5/325)) 1 tab Q6H PRN NGT PAIN LEVEL 4-7; Start 01/13/17 at 23:30 Levetiracetam (Keppra Liquid) 1,000 mg DAILY NGT Last administered on 01/21/17 11:06; Admin Dose 1,000 MG; Start 01/14/17 at 09:00 Meclizine HCl (Antivert) 25 mg TID PRN NGT dizziness; Start 01/13/17 at 20:00 Zolpidem Tartrate (Ambien) 5 mg HS PRN NGT INSOMNIA; Start 01/13/17 at 20:00 Aspirin (Aspirin) 81 mg DAILY NGT Last administered on 01/21/17 11:04; Admin Dose 81 MG; Start 01/14/17 at 09:00 Docusate Sodium (Colace Liquid Cup) 100 mg BID NGT Last administered on 11:05; Admin Dose 100 MG; Start 01/13/17 at 21:00 Pantoprazole (Protonix Iv) 40 mg DAILY@06 IV Last administered on 01/21/17 05: 43; Admin Dose 40 MG; Start 01/14/17 at 06:00 Amiodarone HCl (Cordarone) 200 mg Q8 NGT Last administered on 01/21/17 05:49; Admin Dose 200 MG; Start 01/17/17 at 14:00 Insulin Glargine (Lantus) 40 unit DAILY@20 SC Last administered on 01/20/17 20: 36; Admin Dose 40 UNIT; Start 01/17/17 at 20:00 Metoprolol Tartrate 25 mg 25 mg BID NGT Last administered on 01/20/17 20:33; Admin Dose 25 MG; Start 01/19/17 at 21:00 Cefepime HCl (Maxipime 1gm/50 ml (Pmx)) 50 ml @ 100 mls/hr Q24H IVPB Last administered on 01/20/17 17:49; Admin Dose 100 MLS/HR; Start 01/20/17 at 17:00 KIMBERLY NOYOLA Jan 21, 2017 15:34
[2017-01-21] MEDS: CEFEPIME 1GM/50 ML (PMX) 50 ML IVPB SCH (17:44)
--- NOTE | 2017-01-21 17:49 | CONS ---
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 Blood cultures from HD catheter on 12/13/2016 are negative to date. 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 MRI on 12/06/2016 and bone scan on showed 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 and left fourth proximal phalanx. superficial swab grew inna only - s/p right pleural effusion s/p thoracentesis with .9L removed on 12/16/2016 - severe , EF 40-45% per TTE 12/17/16 - DM - Hgb A1c 8.7% - HTN associated with DM Plan: Plan for HD today s/p family meeting today, family wants to have Trach and PEG placement neurology following pt has severe , very labile BP sometimes with HD will continue to follow up for HD need Consultation Date/Type/Reason Admit Date/Time Dec 02, 2016 at 21:01 Initial Consult Date Type of Consultation: NEPHROLOGY Referring Provider: VIET PARKER MD 24 HR Interval Summary Free Text/Dictation s/p Family meeting today, BP stable, afebrile Exam/Review of Systems Vital Signs Vitals Vital Signs Date Time Temp Pulse Resp B/P Pulse Ox O2 Delivery O2 Flow Rate FiO2 01/21/17 17:15 72 16 98 30 01/21/17 16:00 98.2 117/37 01/20/17 20:00 Mechanical Ventilator Intake and Output 01/20/17 01/20/17 01/21/17 15:00 23:00 07:00 Intake Total 540 ml 340 ml 310 ml Output Total 400 ml 330 ml 210 ml Balance 140 ml 10 ml 100 ml Exam Constitutional: non verbal ENMT: Et tube in place Neck: non-tender, supple Respiratory: other (Intubated) Cardiovascular: nl pulses, regular rate and rhythm Gastrointestinal: nl liver, spleen, non-tender, soft Neurological: other (Eyes are open but does not follow commands, does not communicate, intubated and mechanically ventilated, very limited exam) + permcath in place Results Result Diagram: 01/21/17 0535 01/21/17 0535 Results 24 hrs Laboratory Tests Test 01/20/17 17:48 01/20/17 20:41 01/21/17 01:06 01/21/17 05:35 Bedside Glucose 153 198 168 White Blood Count 10.6 Red Blood Count 2.66 L Hemoglobin 8.2 L Hematocrit 25.4 L Mean Corpuscular Volume 95.5 Mean Corpuscular Hemoglobin 30.8 Mean Corpuscular Hemoglobin Concent 32.3 Red Cell Distribution Width 13.3 Platelet Count 160 Mean Platelet Volume 10.8 H Neutrophils % 76.4 Lymphocytes % 13.5 L Monocytes % 8.3 Eosinophils % 0.9 Basophils % 0.1 Nucleated Red Blood Cells % 0.0 Neutrophils # 8.1 H Lymphocytes # 1.4 Monocytes # 0.9 Eosinophils # 0.1 Basophils # 0.0 Nucleated Red Blood Cells # 0.0 Sodium Level 148 H Potassium Level 4.1 Chloride Level 109 Carbon Dioxide Level 31 Anion Gap 12 Blood Urea Nitrogen 66 H Creatinine 2.25 H Glucose Level 105 Calcium Level 8.6 Test 01/21/17 05:48 01/21/17 10:45 01/21/17 13:25 Bedside Glucose 113 158 152 Medications Medications Current Medications Ondansetron HCl (Zofran Inj) 4 mg Q6H PRN IV NAUSEA AND/OR VOMITING Last administered on 12/13/16 01:13; Admin Dose 4 MG; Start 12/02/16 at 22:30 Miscellaneous Information 1 ea NOTE XX ; Start 12/02/16 at 23:00 Glucose (Glutose) 15 gm Q15M PRN PO DECREASED GLUCOSE; Start 12/02/16 at 23:00 Glucose (Glutose) 22.5 gm Q15M PRN PO DECREASED GLUCOSE; Start 12/02/16 at 23: 00 Dextrose (D50w Syringe) 25 ml Q15M PRN IV DECREASED GLUCOSE Last administered on 12/10/16 05:52; Admin Dose 25 ML; Start 12/02/16 at 23:00 Dextrose (D50w Syringe) 50 ml Q15M PRN IV DECREASED GLUCOSE; Start 12/02/16 at 23:00 Glucagon (Glucagen) 1 mg Q15M PRN IM DECREASED GLUCOSE; Start 12/02/16 at 23:00 Glucose (Glutose) 15 gm Q15M PRN BUCCAL DECREASED GLUCOSE; Start 12/02/16 at 23 :00 Gabapentin (Neurontin) 800 mg TID PO Last administered on 12/08/16 20:33; Admin Dose 800 MG; Start 12/03/16 at 09:00; Status Future Hold Benazepril HCl (Lotensin) 10 mg DAILY PO Last administered on 12/07/16 08:26; Admin Dose 10 MG; Start 12/04/16 at 09:00; Status Future Hold Acetaminophen (Tylenol Supp) 650 mg Q6H PRN [place] ELEVATED TEMPERATURE Last administered on 01/13/17 20:32; Admin Dose 650 MG; Start 12/09/16 at 17:00 Hydralazine HCl (Apresoline) 10 mg Q6H PRN IV SBP>150mm hg Last administered on 12/19/16 08:50; Admin Dose 10 MG; Start 12/11/16 at 10:30 Morphine Sulfate (morphine) 2 mg Q2H PRN IV PAIN LEVEL 4-7; Start 12/13/16 at 10 :00 Collagenase (Santyl) 1 applic DAILY TOP Last administered on 01/21/17 09:15; Admin Dose 1 APPLIC; Start 01/04/17 at 09:00 Insulin Aspart (Novolog Insulin Pen) NOVOLOG *MODERATE* ALGORI... Q4 SC Last administered on 01/21/17 17:46; Admin Dose 2 UNIT; Start 01/09/17 at 14:15 Diagnostic Test (Pha) (Accu-Chek) 1 ea 02 XX Last administered on 01/21/17 02: 32; Admin Dose 1 EA; Start 01/10/17 at 02:00 Metoprolol Tartrate (Lopressor) 5 mg Q4 PRN IV FOR H.R>110; Start 01/12/17 at 17:30 Acetaminophen (Tylenol Liquid) 650 mg Q6H PRN NGT PAIN AND OR ELEVATED TEMP; Start 01/13/17 at 23:30 Apixaban (Eliquis) 2.5 mg BID NGT Last administered on 01/21/17 11:06; Admin Dose 2.5 MG; Start 01/13/17 at 21:00 Acetaminophen/ Hydrocodone Bitart ([place] (5/325)) 1 tab Q6H PRN NGT PAIN LEVEL 4-7; Start 01/13/17 at 23:30 Levetiracetam (Keppra Liquid) 1,000 mg DAILY NGT Last administered on 01/21/17 11:06; Admin Dose 1,000 MG; Start 01/14/17 at 09:00 Meclizine HCl (Antivert) 25 mg TID PRN NGT dizziness; Start 01/13/17 at 20:00 Zolpidem Tartrate (Ambien) 5 mg HS PRN NGT INSOMNIA; Start 01/13/17 at 20:00 Aspirin (Aspirin) 81 mg DAILY NGT Last administered on 01/21/17 11:04; Admin Dose 81 MG; Start 01/14/17 at 09:00 Docusate Sodium (Colace Liquid Cup) 100 mg BID NGT Last administered on 11:05; Admin Dose 100 MG; Start 01/13/17 at 21:00 Pantoprazole (Protonix Iv) 40 mg DAILY@06 IV Last administered on 01/21/17 05: 43; Admin Dose 40 MG; Start 01/14/17 at 06:00 Amiodarone HCl (Cordarone) 200 mg Q8 NGT Last administered on 01/21/17 05:49; Admin Dose 200 MG; Start 01/17/17 at 14:00 Insulin Glargine (Lantus) 40 unit DAILY@20 SC Last administered on 01/20/17 20: 36; Admin Dose 40 UNIT; Start 01/17/17 at 20:00 Metoprolol Tartrate 25 mg 25 mg BID NGT Last administered on 01/20/17 20:33; Admin Dose 25 MG; Start 01/19/17 at 21:00 Cefepime HCl (Maxipime 1gm/50 ml (Pmx)) 50 ml @ 100 mls/hr Q24H IVPB Last administered on 01/21/17 17:44; Admin Dose 100 MLS/HR; Start 01/20/17 at 17:00 TASHIA MCGARRY MD Jan 21, 2017 17:48
[2017-01-21 19:45] LABS: INR 1.37; PROTIME 16.9 Sec (12.2-14.2); PT RATIO 1.3
[2017-01-21] MEDS: INSULIN GLARGINE [LANtus] 3 ML PEN SC SCH (20:12)
[2017-01-22] VITALS (46 sets, daily range): BP systolic 87–149; BP diastolic 35–62; PULSE 58–88; RESP 14–24
[2017-01-22] MEDS: INSULIN ASPART [NOVOLOG] 3 ML PEN SC SCH ×6 (00:38→20:36)
[2017-01-22] MEDS: ALBUTEROL 18 GM INHALER INH SCH ×4 (01:16→19:06)
[2017-01-22] MEDS: ACCU-CHEK XX SCH (01:44)
[2017-01-22 05:44] LABS: ADD SCAN DIFF NO
[2017-01-22] MEDS: PANTOPRAZOLE 40 MG INJ IV SCH (05:46)
[2017-01-22] MEDS: AMIODARONE 200 MG TAB NGT SCH ×3 (05:48→22:00)
[2017-01-22 05:52] LABS: BASOPHILS % 0.1 % (0.0-2.0); EOSINOPHILS # 0.1 10^3/ul (0.0-0.5); EOSINOPHILS % 0.8 % (0.0-7.0); HEMATOCRIT 25.2 % (42.0-52.0); LYMPHOCYTES # 1.6 10^3/ul (0.8-2.9); LYMPHOCYTES % 13.7 % (15.0-51.0); MEAN CORPUSCULAR HEMOGLOBIN 30.1 pg (29.0-33.0); MEAN CORPUSCULAR HGB CONC 31.7 g/dl (32.0-37.0); MEAN CORPUSCULAR VOLUME 94.7 fl (82.0-101.0); MEAN PLATELET VOLUME 10.5 fl (7.4-10.4); MONOCYTES % 8.5 % (0.0-11.0); NEUTROPHIL # 9.1 10^3/ul (1.6-7.5); NEUTROPHILS % 76.2 % (39.0-77.0); PLATELET COUNT 161 10^3/UL (140-415); RED BLOOD COUNT 2.66 10^6/ul (4.70-6.10); RED CELL DISTRIBUTION WIDTH 13.4 % (11.5-14.5); WHITE BLOOD COUNT 11.9 10^3/ul (4.8-10.8)
[2017-01-22 06:25] LABS: CALCIUM 8.3 mg/dl (8.4-10.2); CREATININE 2.02 mg/dl (0.61-1.24)
[2017-01-22] MEDS: LEVETIRACETAM (100 MG/ML) 5ML CUP NGT SCH (08:43)
[2017-01-22] MEDS: METOPROLOL 25 MG TAB NGT SCH ×2 (08:45→20:37)
[2017-01-22] MEDS: DOCUSATE SODIUM 10 MG/ML (10ML CUP) NGT SCH ×2 (08:45→20:31)
[2017-01-22] MEDS: APIXABAN 5 MG TABLET NGT SCH ×2 (08:45→20:32)
[2017-01-22] MEDS: ASPIRIN 81 MG TAB NGT SCH (08:45)
[2017-01-22] MEDS: COLLAGENASE 30 GM TUBE TOP SCH (08:46)
--- NOTE | 2017-01-22 10:07 | CONS ---
Date/Time of Note Date/Time of Note DATE: 01/22/17 TIME: 10:02 Assessment/Plan Assessment/Plan Chief Complaint/Hosp Course IMPRESSION: 1. Atrial fibrillation-Having episodes of PAF with reasonable rate control 2. Hypotension-borderline while on HD currently 3. Abnormal electrocardiogram with inferolateral T-wave inversions. 4. Respiratory failure-s/p intubation and remains thus 5. Nonhealing toe ulceration-vascular following 6. Peripheral arterial disease by arterial ultrasound of the lower extremities this admission. 7. Diabetes mellitus. 8. Fevers. 9. Positive troponin-downtrended 10.Bradycardia-improved/stable 11.-severe by echo 12.Cardiomyopathy-EF 40-45% by echo/36% by stress with no ischemia but positive scar. EF <30% by echo post arrest 14.Encephalopathy-anoxic 15. s/p cardiopulmonary arrest 01/08 Recc: -Tele -serial ecg -HD for volume removal as tolerated -Continue baby asa/eliquis -Continue PO amio in attempt to maintain SR -Continue BB as tolerated only following HR/BP closely -Will hold on afterload reduction given severe and thus fixed afterload at valve orifice -Wean vent as possible/tolerated Problems: Consultation Date/Type/Reason Admit Date/Time Dec 02, 2016 at 21:01 Initial Consult Date 12/03/16 Type of Consultation: Cardiology Reason for Consultation /cardiomyopathy Referring Provider: VIET PARKER MD Exam/Review of Systems Vital Signs Vitals Vital Signs Date Time Temp Pulse Resp B/P Pulse Ox O2 Delivery O2 Flow Rate FiO2 01/22/17 08:00 69 01/22/17 07:32 16 99 30 01/22/17 07:00 119/51 Mechanical Ventilator 01/22/17 04:00 98.2 Intake and Output 01/21/17 01/21/17 01/22/17 15:00 23:00 07:00 Intake Total 690 ml 590 ml 310 ml Output Total 2400 ml 60 ml 90 ml Balance -1710 ml 530 ml 220 ml Exam Review of Systems: CONSTITUTIONAL: No fevers, chills. PULMONARY: intubated CARDIOVASCULAR: No obvious chest pain/palpitations GASTROINTESTINAL: No nausea/vomiting. GENITOURINARY: No hematuria/dysuria. MUSCULOSKELETAL: No obvious myagias/arthalgias. PSYCHIATRIC: No documented depression. NEUROLOGIC: Encephalopathic Constitutional: alert, other Psych: no complaints ENMT: mucosa pink and moist Neck: jvd (9 cm water), supple Respiratory: other (upper airway rhochi) Gastrointestinal: non-tender, soft Musculoskeletal: muscle tone (normal) Extremities: other (trace/B) Neurological: other (No focal deficits) Results Result Diagram: 01/22/17 0510 01/22/17 0510 Results 24 hrs Laboratory Tests Test 01/21/17 10:45 01/21/17 13:25 01/21/17 17:43 01/21/17 18:45 Bedside Glucose 158 152 147 Prothrombin Time 16.9 H Prothrombin Time Ratio 1.3 INR International Normalized Ratio 1.37 Test 01/21/17 20:11 01/21/17 21:10 01/22/17 00:37 01/22/17 04:33 Bedside Glucose 162 157 136 102 Test 01/22/17 05:10 01/22/17 08:39 White Blood Count 11.9 H Red Blood Count 2.66 L Hemoglobin 8.0 L Hematocrit 25.2 L Mean Corpuscular Volume 94.7 Mean Corpuscular Hemoglobin 30.1 Mean Corpuscular Hemoglobin Concent 31.7 L Red Cell Distribution Width 13.4 Platelet Count 161 Mean Platelet Volume 10.5 H Neutrophils % 76.2 Lymphocytes % 13.7 L Monocytes % 8.5 Eosinophils % 0.8 Basophils % 0.1 Nucleated Red Blood Cells % 0.0 Neutrophils # 9.1 H Lymphocytes # 1.6 Monocytes # 1.0 H Eosinophils # 0.1 Basophils # 0.0 Nucleated Red Blood Cells # 0.0 Sodium Level 146 H Potassium Level 4.0 Chloride Level 104 Carbon Dioxide Level 33 H Anion Gap 13 Blood Urea Nitrogen 61 H Creatinine 2.02 H Glucose Level 93 Calcium Level 8.3 L Bedside Glucose 98 Medications Medications Current Medications Ondansetron HCl (Zofran Inj) 4 mg Q6H PRN IV NAUSEA AND/OR VOMITING Last administered on 12/13/16 01:13; Admin Dose 4 MG; Start 12/02/16 at 22:30 Miscellaneous Information 1 ea NOTE XX ; Start 12/02/16 at 23:00 Glucose (Glutose) 15 gm Q15M PRN PO DECREASED GLUCOSE; Start 12/02/16 at 23:00 Glucose (Glutose) 22.5 gm Q15M PRN PO DECREASED GLUCOSE; Start 12/02/16 at 23: 00 Dextrose (D50w Syringe) 25 ml Q15M PRN IV DECREASED GLUCOSE Last administered on 12/10/16 05:52; Admin Dose 25 ML; Start 12/02/16 at 23:00 Dextrose (D50w Syringe) 50 ml Q15M PRN IV DECREASED GLUCOSE; Start 12/02/16 at 23:00 Glucagon (Glucagen) 1 mg Q15M PRN IM DECREASED GLUCOSE; Start 12/02/16 at 23:00 Glucose (Glutose) 15 gm Q15M PRN BUCCAL DECREASED GLUCOSE; Start 12/02/16 at 23 :00 Gabapentin (Neurontin) 800 mg TID PO Last administered on 12/08/16 20:33; Admin Dose 800 MG; Start 12/03/16 at 09:00; Status Future Hold Benazepril HCl (Lotensin) 10 mg DAILY PO Last administered on 12/07/16 08:26; Admin Dose 10 MG; Start 12/04/16 at 09:00; Status Future Hold Acetaminophen (Tylenol Supp) 650 mg Q6H PRN [place] ELEVATED TEMPERATURE Last administered on 01/13/17 20:32; Admin Dose 650 MG; Start 12/09/16 at 17:00 Hydralazine HCl (Apresoline) 10 mg Q6H PRN IV SBP>150mm hg Last administered on 12/19/16 08:50; Admin Dose 10 MG; Start 12/11/16 at 10:30 Morphine Sulfate (morphine) 2 mg Q2H PRN IV PAIN LEVEL 4-7; Start 12/13/16 at 10 :00 Collagenase (Santyl) 1 applic DAILY TOP Last administered on 01/22/17 08:46; Admin Dose 1 APPLIC; Start 01/04/17 at 09:00 Insulin Aspart (Novolog Insulin Pen) NOVOLOG *MODERATE* ALGORI... Q4 SC Last administered on 01/21/17 21:12; Admin Dose 2 UNIT; Start 01/09/17 at 14:15 Diagnostic Test (Pha) (Accu-Chek) 1 ea 02 XX Last administered on 01/22/17 01: 44; Admin Dose 1 EA; Start 01/10/17 at 02:00 Metoprolol Tartrate (Lopressor) 5 mg Q4 PRN IV FOR H.R>110; Start 01/12/17 at 17:30 Acetaminophen (Tylenol Liquid) 650 mg Q6H PRN NGT PAIN AND OR ELEVATED TEMP; Start 01/13/17 at 23:30 Apixaban (Eliquis) 2.5 mg BID NGT Last administered on 01/22/17 08:45; Admin Dose 2.5 MG; Start 01/13/17 at 21:00 Acetaminophen/ Hydrocodone Bitart ([place] (5/325)) 1 tab Q6H PRN NGT PAIN LEVEL 4-7; Start 01/13/17 at 23:30 Levetiracetam (Keppra Liquid) 1,000 mg DAILY NGT Last administered on 08:43; Admin Dose 1,000 MG; Start 01/14/17 at 09:00 Meclizine HCl (Antivert) 25 mg TID PRN NGT dizziness; Start 01/13/17 at 20:00 Zolpidem Tartrate (Ambien) 5 mg HS PRN NGT INSOMNIA; Start 01/13/17 at 20:00 Aspirin (Aspirin) 81 mg DAILY NGT Last administered on 01/22/17 08:45; Admin Dose 81 MG; Start 01/14/17 at 09:00 Docusate Sodium (Colace Liquid Cup) 100 mg BID NGT Last administered on 08:45; Admin Dose 100 MG; Start 01/13/17 at 21:00 Pantoprazole (Protonix Iv) 40 mg DAILY@06 IV Last administered on 01/22/17 05: 46; Admin Dose 40 MG; Start 01/14/17 at 06:00 Amiodarone HCl (Cordarone) 200 mg Q8 NGT Last administered on 01/22/17 05:48; Admin Dose 200 MG; Start 01/17/17 at 14:00 Insulin Glargine (Lantus) 40 unit DAILY@20 SC Last administered on 01/21/17 20: 12; Admin Dose 40 UNIT; Start 01/17/17 at 20:00 Metoprolol Tartrate 25 mg 25 mg BID NGT Last administered on 01/22/17 08:45; Admin Dose 25 MG; Start 01/19/17 at 21:00 Cefepime HCl (Maxipime 1gm/50 ml (Pmx)) 50 ml @ 100 mls/hr Q24H IVPB Last administered on 01/21/17t 17:44; Admin Dose 100 MLS/HR; Start 01/20/17 at 17:00 VICENTE LESLIE Jan 22, 2017 10:07
--- NOTE | 2017-01-22 10:52 | PN ---
Date/Time of Note Date/Time of Note DATE: 01/22/17 TIME: 10:52 Assessment/Plan VTE Prophylaxis VTE Prophylaxis Intervention: other Lines/Catheters IV [facility]ter Type (from [facility]): [facility] Urinary Cath still in place: No (CONDOM) Assessment/Plan Chief Complaint/Hosp Course 1. 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 Dr. Villa is following in neurology consultation. 2. Status post cardiopulmonary arrest on 12/09/2016 and 01/08/2017. Continue supportive care. Continue ventilatory support. Dr. Rivera is following in pulmonology consultation. 2. Possible tracheobronchitis versus pneumonia. The patient is currently on antibiotics per infectious disease. Dr. Wilson's group is following in infectious disease consultation. Patient is currently on cefepime and caspofungin. Sputum cultures are positive for pseudomonas. 3. Acute kidney injury on chronic kidney disease which progressed to end-stage renal disease. Dr. Remy is following in nephrology consultation. Continue hemodialysis per nephrology. 4. Paroxysmal atrial fibrillation. The patient is continued on aspirin, amiodarone and Eliquis. Dr. Cobian is following in cardiology consultation. 5. Diabetes mellitus type 2. Continue patient's Lantus with NovoLog sliding scale coverage with Accu-Cheks q.4h while patient on nasogastric tube feeding. 6. Diabetic foot ulcer. Continue current wound care. 7. Peripheral arterial disease 8. Osteomyelitis of the distal phalanx of the left great toe and left proximal phalanx. Completed a course of antibiotics for osteomyelitis. Problems: Subjective 24 Hr Interval Summary Free Text/Dictation Patient is sedated and intubated Exam/Review of Systems Vital Signs Vitals Vital Signs Date Time Temp Pulse Resp B/P Pulse Ox O2 Delivery O2 Flow Rate FiO2 01/22/17 09:00 74 16 100 30 01/22/17 07:00 119/51 Mechanical Ventilator 01/22/17 04:00 98.2 Intake and Output 01/21/17 01/21/17 01/22/17 15:00 23:00 07:00 Intake Total 690 ml 590 ml 310 ml Output Total 2400 ml 60 ml 90 ml Balance -1710 ml 530 ml 220 ml Exam Constitutional: well developed Head: atraumatic, normocephalic Neck: supple Respiratory: diminished breath sounds Cardiovascular: regular rate and rhythm Gastrointestinal: non-tender, soft Extremities: normal pulses Results Result Diagram: 01/22/17 0510 01/22/17 0510 Results 24 hrs Laboratory Tests Test 01/21/17 13:25 01/21/17 17:43 01/21/17 18:45 01/21/17 20:11 Bedside Glucose 152 147 162 Prothrombin Time 16.9 H Prothrombin Time Ratio 1.3 INR International Normalized Ratio 1.37 Test 01/21/17 21:10 01/22/17 00:37 01/22/17 04:33 01/22/17 05:10 Bedside Glucose 157 136 102 White Blood Count 11.9 H Red Blood Count 2.66 L Hemoglobin 8.0 L Hematocrit 25.2 L Mean Corpuscular Volume 94.7 Mean Corpuscular Hemoglobin 30.1 Mean Corpuscular Hemoglobin Concent 31.7 L Red Cell Distribution Width 13.4 Platelet Count 161 Mean Platelet Volume 10.5 H Neutrophils % 76.2 Lymphocytes % 13.7 L Monocytes % 8.5 Eosinophils % 0.8 Basophils % 0.1 Nucleated Red Blood Cells % 0.0 Neutrophils # 9.1 H Lymphocytes # 1.6 Monocytes # 1.0 H Eosinophils # 0.1 Basophils # 0.0 Nucleated Red Blood Cells # 0.0 Sodium Level 146 H Potassium Level 4.0 Chloride Level 104 Carbon Dioxide Level 33 H Anion Gap 13 Blood Urea Nitrogen 61 H Creatinine 2.02 H Glucose Level 93 Calcium Level 8.3 L Test 01/22/17 08:39 Bedside Glucose 98 Medications Medications Current Medications Ondansetron HCl (Zofran Inj) 4 mg Q6H PRN IV NAUSEA AND/OR VOMITING Last administered on 12/13/16 01:13; Admin Dose 4 MG; Start 12/02/16 at 22:30 Miscellaneous Information 1 ea NOTE XX ; Start 12/02/16 at 23:00 Glucose (Glutose) 15 gm Q15M PRN PO DECREASED GLUCOSE; Start 12/02/16 at 23:00 Glucose (Glutose) 22.5 gm Q15M PRN PO DECREASED GLUCOSE; Start 12/02/16 at 23: 00 Dextrose (D50w Syringe) 25 ml Q15M PRN IV DECREASED GLUCOSE Last administered on 12/10/16 05:52; Admin Dose 25 ML; Start 12/02/16 at 23:00 Dextrose (D50w Syringe) 50 ml Q15M PRN IV DECREASED GLUCOSE; Start 12/02/16 at 23:00 Glucagon (Glucagen) 1 mg Q15M PRN IM DECREASED GLUCOSE; Start 12/02/16 at 23:00 Glucose (Glutose) 15 gm Q15M PRN BUCCAL DECREASED GLUCOSE; Start 12/02/16 at 23 :00 Gabapentin (Neurontin) 800 mg TID PO Last administered on 12/08/16 20:33; Admin Dose 800 MG; Start 12/03/16 at 09:00; Status Future Hold Benazepril HCl (Lotensin) 10 mg DAILY PO Last administered on 12/07/16 08:26; Admin Dose 10 MG; Start 12/04/16 at 09:00; Status Future Hold Acetaminophen (Tylenol Supp) 650 mg Q6H PRN [place] ELEVATED TEMPERATURE Last administered on 01/13/17 20:32; Admin Dose 650 MG; Start 12/09/16 at 17:00 Hydralazine HCl (Apresoline) 10 mg Q6H PRN IV SBP>150mm hg Last administered on 12/19/16 08:50; Admin Dose 10 MG; Start 12/11/16 at 10:30 Morphine Sulfate (morphine) 2 mg Q2H PRN IV PAIN LEVEL 4-7; Start 12/13/16 at 10 :00 Collagenase (Santyl) 1 applic DAILY TOP Last administered on 01/22/17 08:46; Admin Dose 1 APPLIC; Start 01/04/17 at 09:00 Insulin Aspart (Novolog Insulin Pen) NOVOLOG *MODERATE* ALGORI... Q4 SC Last administered on 01/21/17 21:12; Admin Dose 2 UNIT; Start 01/09/17 at 14:15 Diagnostic Test (Pha) (Accu-Chek) 1 ea 02 XX Last administered on 01/22/17 01: 44; Admin Dose 1 EA; Start 01/10/17 at 02:00 Metoprolol Tartrate (Lopressor) 5 mg Q4 PRN IV FOR H.R>110; Start 01/12/17 at 17:30 Acetaminophen (Tylenol Liquid) 650 mg Q6H PRN NGT PAIN AND [place] ELEVATED TEMP; Start 01/13/17 at 23:30 Apixaban (Eliquis) 2.5 mg BID NGT Last administered on 01/22/17 08:45; Admin Dose 2.5 MG; Start 01/13/17 at 21:00 Acetaminophen/ Hydrocodone Bitart ([place] (5/325)) 1 tab Q6H PRN NGT PAIN LEVEL 4-7; Start 01/13/17 at 23:30 Levetiracetam (Keppra Liquid) 1,000 mg DAILY NGT Last administered on 08:43; Admin Dose 1,000 MG; Start 01/14/17 at 09:00 Meclizine HCl (Antivert) 25 mg TID PRN NGT dizziness; Start 01/13/17 at 20:00 Zolpidem Tartrate (Ambien) 5 mg HS PRN NGT INSOMNIA; Start 01/13/17 at 20:00 Aspirin (Aspirin) 81 mg DAILY NGT Last administered on 01/22/17 08:45; Admin Dose 81 MG; Start 01/14/17 at 09:00 Docusate Sodium (Colace Liquid Cup) 100 mg BID NGT Last administered on 08:45; Admin Dose 100 MG; Start 01/13/17 at 21:00 Pantoprazole (Protonix Iv) 40 mg DAILY@06 IV Last administered on 01/22/17 05: 46; Admin Dose 40 MG; Start 01/14/17 at 06:00 Amiodarone HCl (Cordarone) 200 mg Q8 NGT Last administered on 01/22/17 05:48; Admin Dose 200 MG; Start 01/17/17 at 14:00 Insulin Glargine (Lantus) 40 unit DAILY@20 SC Last administered on 01/21/17 20: 12; Admin Dose 40 UNIT; Start 01/17/17 at 20:00 Metoprolol Tartrate 25 mg 25 mg BID NGT Last administered on 01/22/17 08:45; Admin Dose 25 MG; Start 01/19/17 at 21:00 Cefepime HCl (Maxipime 1gm/50 ml (Pmx)) 50 ml @ 100 mls/hr Q24H IVPB Last administered on 01/21/17 17:44; Admin Dose 100 MLS/HR; Start 01/20/17 at 17:00 ELTON MARMOLEJO Jan 22, 2017 10:52
[2017-01-22] MEDS: ALBUMIN HUMAN 25% 50 ML IV PRN (13:27)
--- NOTE | 2017-01-22 13:41 | CONS ---
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 Blood cultures from HD catheter on 12/13/2016 are negative to date. 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 MRI on 12/06/2016 and bone scan on showed 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 and left fourth proximal phalanx. superficial swab grew inna only - s/p right pleural effusion s/p thoracentesis with .9L removed on 12/16/2016 - severe , EF 40-45% per TTE 12/17/16 - DM - Hgb A1c 8.7% - HTN associated with DM Plan: Getting HD today s/p family meeting today, family wants to have Trach and PEG placement neurology following pt has severe , very labile BP sometimes with HD will continue to follow up for HD need Further recommendations depend upon patient's clinical course. Plan of care mounika Remy /staff Consultation Date/Type/Reason Admit Date/Time Dec 02, 2016 at 21:01 Initial Consult Date 12/08/16 Type of Consultation: Cardiology Referring Provider: VIET PARKER MD 24 HR Interval Summary Free Text/Dictation intubated, afebrile. fc- 300 cc urine since 6 am today, getting HD, no new issues reported- mounika staff Constitutional: requiring IVF, requiring O2 Exam/Review of Systems Vital Signs Vitals Vital Signs Date Time Temp Pulse Resp B/P Pulse Ox O2 Delivery O2 Flow Rate FiO2 01/22/17 12:45 65 32 01/22/17 12:40 100 30 01/22/17 07:00 119/51 Mechanical Ventilator 01/22/17 04:00 98.2 Intake and Output 01/21/17 01/21/17 01/22/17 15:00 23:00 07:00 Intake Total 690 ml 590 ml 310 ml Output Total 2400 ml 60 ml 90 ml Balance -1710 ml 530 ml 220 ml Exam Respiratory: clear to auscultation, normal air movement, other (remains intubated) Cardiovascular: nl pulses Gastrointestinal: non-tender, soft Musculoskeletal: nl extremities to inspection Extremities: normal pulses Neurological: unresponsive Results Result Diagram: 01/22/17 0510 01/22/17509 Results 24 hrs Laboratory Tests Test 01/21/17 17:43 01/21/17 18:45 01/21/17 20:11 01/21/17 21:10 Bedside Glucose 147 162 157 Prothrombin Time 16.9 H Prothrombin Time Ratio 1.3 INR International Normalized Ratio 1.37 Test 01/22/17 00:37 01/22/17 04:33 01/22/17 05:10 01/22/17 08:39 Bedside Glucose 136 102 98 White Blood Count 11.9 H Red Blood Count 2.66 L Hemoglobin 8.0 L Hematocrit 25.2 L Mean Corpuscular Volume 94.7 Mean Corpuscular Hemoglobin 30.1 Mean Corpuscular Hemoglobin Concent 31.7 L Red Cell Distribution Width 13.4 Platelet Count 161 Mean Platelet Volume 10.5 H Neutrophils % 76.2 Lymphocytes % 13.7 L Monocytes % 8.5 Eosinophils % 0.8 Basophils % 0.1 Nucleated Red Blood Cells % 0.0 Neutrophils # 9.1 H Lymphocytes # 1.6 Monocytes # 1.0 H Eosinophils # 0.1 Basophils # 0.0 Nucleated Red Blood Cells # 0.0 Sodium Level 146 H Potassium Level 4.0 Chloride Level 104 Carbon Dioxide Level 33 H Anion Gap 13 Blood Urea Nitrogen 61 H Creatinine 2.02 H Glucose Level 93 Calcium Level 8.3 L Medications Medications Current Medications Ondansetron HCl (Zofran Inj) 4 mg Q6H PRN IV NAUSEA AND/OR VOMITING Last administered on 12/13/16t 01:13; Admin Dose 4 MG; Start 12/02/16 at 22:30 Miscellaneous Information 1 ea NOTE XX ; Start 12/02/16 at 23:00 Glucose (Glutose) 15 gm Q15M PRN PO DECREASED GLUCOSE; Start 12/02/16 at 23:00 Glucose (Glutose) 22.5 gm Q15M PRN PO DECREASED GLUCOSE; Start 12/02/16 at 23: 00 Dextrose (D50w Syringe) 25 ml Q15M PRN IV DECREASED GLUCOSE Last administered on 12/10/16 05:52; Admin Dose 25 ML; Start 12/02/16 at 23:00 Dextrose (D50w Syringe) 50 ml Q15M PRN IV DECREASED GLUCOSE; Start 12/02/16 at 23:00 Glucagon (Glucagen) 1 mg Q15M PRN IM DECREASED GLUCOSE; Start 12/02/16 at 23:00 Glucose (Glutose) 15 gm Q15M PRN BUCCAL DECREASED GLUCOSE; Start 12/02/16 at 23 :00 Gabapentin (Neurontin) 800 mg TID PO Last administered on 12/08/16 20:33; Admin Dose 800 MG; Start 12/03/16 at 09:00; Status Future Hold Benazepril HCl (Lotensin) 10 mg DAILY PO Last administered on 12/07/16 08:26; Admin Dose 10 MG; Start 12/04/16 at 09:00; Status Future Hold Acetaminophen (Tylenol Supp) 650 mg Q6H PRN [place] ELEVATED TEMPERATURE Last administered on 01/13/17 20:32; Admin Dose 650 MG; Start 12/09/16 at 17:00 Hydralazine HCl (Apresoline) 10 mg Q6H PRN IV SBP>150mm hg Last administered on 12/19/16 08:50; Admin Dose 10 MG; Start 12/11/16 at 10:30 Morphine Sulfate (morphine) 2 mg Q2H PRN IV PAIN LEVEL 4-7; Start 12/13/16 at 10 :00 Collagenase (Santyl) 1 applic DAILY TOP Last administered on 01/22/17 08:46; Admin Dose 1 APPLIC; Start 01/04/17 at 09:00 Insulin Aspart (Novolog Insulin Pen) NOVOLOG *MODERATE* ALGORI... Q4 SC Last administered on 01/21/17 21:12; Admin Dose 2 UNIT; Start 01/09/17 at 14:15 Diagnostic Test (Pha) (Accu-Chek) 1 ea 02 XX Last administered on 01/22/17 01: 44; Admin Dose 1 EA; Start 01/10/17 at 02:00 Metoprolol Tartrate (Lopressor) 5 mg Q4 PRN IV FOR H.R>110; Start 01/12/17 at 17:30 Acetaminophen (Tylenol Liquid) 650 mg Q6H PRN NGT PAIN AND OR ELEVATED TEMP; Start 01/13/17 at 23:30 Apixaban (Eliquis) 2.5 mg BID NGT Last administered on 01/22/17 08:45; Admin Dose 2.5 MG; Start 01/13/17 at 21:00 Acetaminophen/ Hydrocodone Bitart ([place] (5/325)) 1 tab Q6H PRN NGT PAIN LEVEL 4-7; Start 01/13/17 at 23:30 Levetiracetam (Keppra Liquid) 1,000 mg DAILY NGT Last administered on 08:43; Admin Dose 1,000 MG; Start 01/14/17 at 09:00 Meclizine HCl (Antivert) 25 mg TID PRN NGT dizziness; Start 01/13/17 at 20:00 Zolpidem Tartrate (Ambien) 5 mg HS PRN NGT INSOMNIA; Start 01/13/17 at 20:00 Aspirin (Aspirin) 81 mg DAILY NGT Last administered on 01/22/17 08:45; Admin Dose 81 MG; Start 01/14/17 at 09:00 Docusate Sodium (Colace Liquid Cup) 100 mg BID NGT Last administered on 08:45; Admin Dose 100 MG; Start 01/13/17 at 21:00 Pantoprazole (Protonix Iv) 40 mg DAILY@06 IV Last administered on 01/22/17 05: 46; Admin Dose 40 MG; Start 01/14/17 at 06:00 Amiodarone HCl (Cordarone) 200 mg Q8 NGT Last administered on 01/22/17 05:48; Admin Dose 200 MG; Start 01/17/17 at 14:00 Insulin Glargine (Lantus) 40 unit DAILY@20 SC Last administered on 01/21/17 20: 12; Admin Dose 40 UNIT; Start 01/17/17 at 20:00 Metoprolol Tartrate 25 mg 25 mg BID NGT Last administered on 01/22/17 08:45; Admin Dose 25 MG; Start 01/19/17 at 21:00 Cefepime HCl (Maxipime 1gm/50 ml (Pmx)) 50 ml @ 100 mls/hr Q24H IVPB Last administered on 01/21/17 17:44; Admin Dose 100 MLS/HR; Start 01/20/17 at 17:00 YULIANA SIMMONS Jan 22, 2017 13:41
--- NOTE | 2017-01-22 14:26 | CONS ---
DATE OF ADMISSION: 12/02/2016 DATE OF CONSULTATION: TYPE OF CONSULTATION: Otolaryngology HISTORY OF PRESENT ILLNESS: Camilo Newton is a 66-year-old gentleman with respiratory failure. ENT was consulted to evaluate him for tracheotomy. PAST MEDICAL HISTORY: Diabetes, lower extremity cellulitis, end-stage renal disease. PAST SURGICAL HISTORY: None. DRUG ALLERGIES: VANCOMYCIN, WHICH MAY HAVE GIVEN HIM RENAL FAILURE. MEDICATIONS: List was reviewed. SOCIAL HISTORY: Negative for tobacco, alcohol or drug abuse. FAMILY HISTORY: Negative for any heart, lung, kidney, thyroid, or liver disease. REVIEW OF SYSTEMS: A 12-point review of systems not available from the patient as he is being hemod ialyzed and he is on the ventilator yet. In discussed with the , she knows of no pressing issue s other than what has been reported. HEENT: On examination today, the oral cavity and oropharynx showed tongue and mouth are normal. O ropharynx is clear. He is presently intubated. NECK: Reveals no lymphadenopathy or thyromegaly. Trachea is midline. Thyroid and ____ without les ion. There is no evidence of previous cervical surgery. IMPRESSION: 1. Respiratory failure. 2. End-stage renal disease. PLAN: At this point, I discussed the risks, benefits, alternatives with the patient's , nehemiah ng but not limited to hemorrhage, infection as well as anesthesia and she understands, accepts that and wishes to proceed. We will set this up at the earliest convenience. Dictated By: TRAV BERKOWITZ/MICHELLE Conf#: [id number] DID#: [id number]
--- NOTE | 2017-01-22 16:43 | CONS ---
Date/Time of Note Date/Time of Note DATE: 01/22/17 TIME: 16:42 Consult Date/Type/Reason Admit Date/Time Dec 02, 2016 at 21:01 Initial Consult Date 12/08/16 Type of Consultation: Pulm/CCM Ordering Provider: VIET PARKER MD Subjective On vent and unresponsive. Objective Vital Signs Date Time Temp Pulse Resp B/P Pulse Ox O2 Delivery O2 Flow Rate FiO2 01/22/17 16:00 76 01/22/17 15:45 30 01/22/17 15:30 98 30 01/22/17 07:00 119/51 Mechanical Ventilator 01/22/17 04:00 98.2 Intake and Output 01/21/17 01/21/17 01/22/17 15:00 23:00 07:00 Intake Total 690 ml 590 ml 310 ml Output Total 2400 ml 60 ml 90 ml Balance -1710 ml 530 ml 220 ml Exam HEENT: Neck supple; ++ JVD; no LAD; ET tube in place CVS: Irreg irreg, S1 and S2 CHEST: Bilateral rales ABD: Soft, NT, + BS EXT: No c/c + edema Results/Medications Result Diagram: 01/22/17 0510 01/22/17 0510 Results 24 hrs Laboratory Tests Test 01/21/17 17:43 01/21/17 18:45 01/21/17 20:11 01/21/17 21:10 Bedside Glucose 147 162 157 Prothrombin Time 16.9 H Prothrombin Time Ratio 1.3 INR International Normalized Ratio 1.37 Test 01/22/17 00:37 01/22/17 04:33 01/22/17 05:10 01/22/17 08:39 Bedside Glucose 136 102 98 White Blood Count 11.9 H Red Blood Count 2.66 L Hemoglobin 8.0 L Hematocrit 25.2 L Mean Corpuscular Volume 94.7 Mean Corpuscular Hemoglobin 30.1 Mean Corpuscular Hemoglobin Concent 31.7 L Red Cell Distribution Width 13.4 Platelet Count 161 Mean Platelet Volume 10.5 H Neutrophils % 76.2 Lymphocytes % 13.7 L Monocytes % 8.5 Eosinophils % 0.8 Basophils % 0.1 Nucleated Red Blood Cells % 0.0 Neutrophils # 9.1 H Lymphocytes # 1.6 Monocytes # 1.0 H Eosinophils # 0.1 Basophils # 0.0 Nucleated Red Blood Cells # 0.0 Sodium Level 146 H Potassium Level 4.0 Chloride Level 104 Carbon Dioxide Level 33 H Anion Gap 13 Blood Urea Nitrogen 61 H Creatinine 2.02 H Glucose Level 93 Calcium Level 8.3 L Test 01/22/17 14:26 Bedside Glucose 119 Medications Current Medications Ondansetron HCl (Zofran Inj) 4 mg Q6H PRN IV NAUSEA AND/OR VOMITING Last administered on 12/13/16 01:13; Admin Dose 4 MG; Start 12/02/16 at 22:30 Miscellaneous Information 1 ea NOTE XX ; Start 12/02/16 at 23:00 Glucose (Glutose) 15 gm Q15M PRN PO DECREASED GLUCOSE; Start 12/02/16 at 23:00 Glucose (Glutose) 22.5 gm Q15M PRN PO DECREASED GLUCOSE; Start 12/02/16 at 23: 00 Dextrose (D50w Syringe) 25 ml Q15M PRN IV DECREASED GLUCOSE Last administered on 12/10/16 05:52; Admin Dose 25 ML; Start 12/02/16 at 23:00 Dextrose (D50w Syringe) 50 ml Q15M PRN IV DECREASED GLUCOSE; Start 12/02/16 at 23:00 Glucagon (Glucagen) 1 mg Q15M PRN IM DECREASED GLUCOSE; Start 12/02/16 at 23:00 Glucose (Glutose) 15 gm Q15M PRN BUCCAL DECREASED GLUCOSE; Start 12/02/16 at 23 :00 Gabapentin (Neurontin) 800 mg TID PO Last administered on 12/08/16 20:33; Admin Dose 800 MG; Start 12/03/16 at 09:00; Status Future Hold Benazepril HCl (Lotensin) 10 mg DAILY PO Last administered on 12/07/16 08:26; Admin Dose 10 MG; Start 12/04/16 at 09:00; Status Future Hold Acetaminophen (Tylenol Supp) 650 mg Q6H PRN [place] ELEVATED TEMPERATURE Last administered on 01/13/17 20:32; Admin Dose 650 MG; Start 12/09/16 at 17:00 Hydralazine HCl (Apresoline) 10 mg Q6H PRN IV SBP>150mm hg Last administered on 12/19/16 08:50; Admin Dose 10 MG; Start 12/11/16 at 10:30 Morphine Sulfate (morphine) 2 mg Q2H PRN IV PAIN LEVEL 4-7; Start 12/13/16 at 10 :00 Collagenase (Santyl) 1 applic DAILY TOP Last administered on 01/22/17 08:46; Admin Dose 1 APPLIC; Start 01/04/17 at 09:00 Insulin Aspart (Novolog Insulin Pen) NOVOLOG *MODERATE* ALGORI... Q4 SC Last administered on 01/21/17 21:12; Admin Dose 2 UNIT; Start 01/09/17 at 14:15 Diagnostic Test (Pha) (Accu-Chek) 1 ea 02 XX Last administered on 01/22/17 01: 44; Admin Dose 1 EA; Start 01/10/17 at 02:00 Metoprolol Tartrate (Lopressor) 5 mg Q4 PRN IV FOR H.R>110; Start 01/12/17 at 17:30 Acetaminophen (Tylenol Liquid) 650 mg Q6H PRN NGT PAIN AND [place] ELEVATED TEMP; Start 01/13/17 at 23:30 Apixaban (Eliquis) 2.5 mg BID NGT Last administered on 01/22/17 08:45; Admin Dose 2.5 MG; Start 01/13/17 at 21:00 Acetaminophen/ Hydrocodone Bitart ([place] (5/325)) 1 tab Q6H PRN NGT PAIN LEVEL 4-7; Start 01/13/17 at 23:30 Levetiracetam (Keppra Liquid) 1,000 mg DAILY NGT Last administered on 08:43; Admin Dose 1,000 MG; Start 01/14/17 at 09:00 Meclizine HCl (Antivert) 25 mg TID PRN NGT dizziness; Start 01/13/17 at 20:00 Zolpidem Tartrate (Ambien) 5 mg HS PRN NGT INSOMNIA; Start 01/13/17 at 20:00 Aspirin (Aspirin) 81 mg DAILY NGT Last administered on 01/22/17 08:45; Admin Dose 81 MG; Start 01/14/17 at 09:00 Docusate Sodium (Colace Liquid Cup) 100 mg BID NGT Last administered on 08:45; Admin Dose 100 MG; Start 01/13/17 at 21:00 Pantoprazole (Protonix Iv) 40 mg DAILY@06 IV Last administered on 01/22/17 05: 46; Admin Dose 40 MG; Start 01/14/17 at 06:00 Amiodarone HCl (Cordarone) 200 mg Q8 NGT Last administered on 01/22/17 05:48; Admin Dose 200 MG; Start 01/17/17 at 14:00 Insulin Glargine (Lantus) 40 unit DAILY@20 SC Last administered on 01/21/17 20: 12; Admin Dose 40 UNIT; Start 01/17/17 at 20:00 Metoprolol Tartrate 25 mg 25 mg BID NGT Last administered on 01/22/17 08:45; Admin Dose 25 MG; Start 01/19/17 at 21:00 Cefepime HCl (Maxipime 1gm/50 ml (Pmx)) 50 ml @ 100 mls/hr Q24H IVPB Last administered on 01/21/17 17:44; Admin Dose 100 MLS/HR; Start 01/20/17 at 17:00 Assessment/Plan Additional Assessment/Plan IMP: 1. s/p Cardiopulmonary Arrest: Likely a respiratory event leading to the asystolic event 2. CHF/Volume overload 3. Respiratory Failure/Vent 4. Anoxic Brain Encephalopathy 5. s/p Fungemia 6. CKD-on HD 7. Anemia RECS: 1. Vent support 2. Appears to be moving to trach/PEG despite futility 3. Keep off sedatives 4. TF/Free H20 35 min cc time JACOB SANTIZO MD Jan 22, 2017 16:43
--- NOTE | 2017-01-22 17:49 | CONS ---
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 Blood cultures from HD catheter on 12/13/2016 are negative to date. 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 MRI on 12/06/2016 and bone scan on showed 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 and left fourth proximal phalanx. superficial swab grew inna only. At present, no e/o persistent infection - recurrent pleural effusion - s/p right pleural effusion s/p thoracentesis with .9L removed on 12/16/2016; ( Note: there is no pleural fluid cx since orders were placed after Right thoracentesis, and Left thoracentesis was not performed on 12/17/16 d/t insufficient fluid) - funguria - ARANZA on CKD that progressed to ESRD and started on HD from 12/09/2016 - oliguria - improved - A fib -> PAF - small nonreversible perfusion abnormality in the inferoapical and inferior carver; EF 36% per Lexiscan 12/24/2016 - severe , EF 40-45% per TTE 12/17/16 - DM - Hgb A1c 8.7% - HTN associated with DM - recurrent episodes of respiratory failure - acute encephalopathy with anoxic brain injury - stage 3 decubitus ulcer of coccyx without evidence of infection - urinary retention NOTE: Pt completed 6 weeks (12/03/2016-01/15/2017) of antibiotics to treat 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 and left fourth proximal phalanx ; s/p pip/tazo 12/03/16-01/08/17; linezolid 01/08/17-01/20/17; caspofungin 01/12/17-01/21/17. recommendations: - continue renally dosed cefepime for pseudomonas (01/15/2017-) - continue local wound care of L 1st toe and coccyx the critical care time I took to care for this Pt today was from 1700 to 1740 Problems: Consultation Date/Type/Reason Admit Date/Time Dec 02, 2016 at 21:01 Initial Consult Date 12/03/16 Type of Consultation: ID Referring Provider: VIET PARKER MD 24 HR Interval Summary Subjective hx not possible: pt non-verbal Exam/Review of Systems Vital Signs Vitals Vital Signs Date Time Temp Pulse Resp B/P Pulse Ox O2 Delivery O2 Flow Rate FiO2 01/22/17 17:24 76 17 100 30 01/22/17 07:00 119/51 Mechanical Ventilator 01/22/17 04:00 98.2 Intake and Output 01/21/17 01/21/17 01/22/17 15:00 23:00 07:00 Intake Total 690 ml 590 ml 310 ml Output Total 2400 ml 60 ml 90 ml Balance -1710 ml 530 ml 220 ml Exam Constitutional: frail, non-verbal Psych: confusion Head: atraumatic, normocephalic Eyes: nl conjunctiva ENMT: intubated, nl external ears & nose Respiratory: crackles/rales Cardiovascular: nl pulses, regular rate and rhythm Gastrointestinal: non-tender, soft Genitourinary - Male: other (FC) Musculoskeletal: No swelling Extremities: No edema Neurological: confused, lethargic Skin: rash or lesions (L 1st toe and coccyx) Results Result Diagram: 01/22/17 0510 01/22/17 0510 Results 24 hrs Laboratory Tests Test 01/21/17 18:45 01/21/17 20:11 01/21/17 21:10 01/22/17 00:37 Prothrombin Time 16.9 H Prothrombin Time Ratio 1.3 INR International Normalized Ratio 1.37 Bedside Glucose 162 157 136 Test 01/22/17 04:33 01/22/17 05:10 01/22/17 08:39 01/22/17 14:26 Bedside Glucose 102 98 119 White Blood Count 11.9 H Red Blood Count 2.66 L Hemoglobin 8.0 L Hematocrit 25.2 L Mean Corpuscular Volume 94.7 Mean Corpuscular Hemoglobin 30.1 Mean Corpuscular Hemoglobin Concent 31.7 L Red Cell Distribution Width 13.4 Platelet Count 161 Mean Platelet Volume 10.5 H Neutrophils % 76.2 Lymphocytes % 13.7 L Monocytes % 8.5 Eosinophils % 0.8 Basophils % 0.1 Nucleated Red Blood Cells % 0.0 Neutrophils # 9.1 H Lymphocytes # 1.6 Monocytes # 1.0 H Eosinophils # 0.1 Basophils # 0.0 Nucleated Red Blood Cells # 0.0 Sodium Level 146 H Potassium Level 4.0 Chloride Level 104 Carbon Dioxide Level 33 H Anion Gap 13 Blood Urea Nitrogen 61 H Creatinine 2.02 H Glucose Level 93 Calcium Level 8.3 L Medications Medications Current Medications Ondansetron HCl (Zofran Inj) 4 mg Q6H PRN IV NAUSEA AND/OR VOMITING Last administered on 12/13/16 01:13; Admin Dose 4 MG; Start 12/02/16 at 22:30 Miscellaneous Information 1 ea NOTE XX ; Start 12/02/16 at 23:00 Glucose (Glutose) 15 gm Q15M PRN PO DECREASED GLUCOSE; Start 12/02/16 at 23:00 Glucose (Glutose) 22.5 gm Q15M PRN PO DECREASED GLUCOSE; Start 12/02/16 at 23: 00 Dextrose (D50w Syringe) 25 ml Q15M PRN IV DECREASED GLUCOSE Last administered on 12/10/16 05:52; Admin Dose 25 ML; Start 12/02/16 at 23:00 Dextrose (D50w Syringe) 50 ml Q15M PRN IV DECREASED GLUCOSE; Start 12/02/16 at 23:00 Glucagon (Glucagen) 1 mg Q15M PRN IM DECREASED GLUCOSE; Start 12/02/16 at 23:00 Glucose (Glutose) 15 gm Q15M PRN BUCCAL DECREASED GLUCOSE; Start 12/02/16 at 23 :00 Gabapentin (Neurontin) 800 mg TID PO Last administered on 12/08/16 20:33; Admin Dose 800 MG; Start 12/03/16 at 09:00; Status Future Hold Benazepril HCl (Lotensin) 10 mg DAILY PO Last administered on 12/07/16 08:26; Admin Dose 10 MG; Start 12/04/16 at 09:00; Status Future Hold Acetaminophen (Tylenol Supp) 650 mg Q6H PRN [place] ELEVATED TEMPERATURE Last administered on 01/13/17 20:32; Admin Dose 650 MG; Start 12/09/16 at 17:00 Hydralazine HCl (Apresoline) 10 mg Q6H PRN IV SBP>150mm hg Last administered on 12/19/16 08:50; Admin Dose 10 MG; Start 12/11/16 at 10:30 Morphine Sulfate (morphine) 2 mg Q2H PRN IV PAIN LEVEL 4-7; Start 12/13/16 at 10 :00 Collagenase (Santyl) 1 applic DAILY TOP Last administered on 01/22/17 08:46; Admin Dose 1 APPLIC; Start 01/04/17 at 09:00 Insulin Aspart (Novolog Insulin Pen) NOVOLOG *MODERATE* ALGORI... Q4 SC Last administered on 01/21/17 21:12; Admin Dose 2 UNIT; Start 01/09/17 at 14:15 Diagnostic Test (Pha) (Accu-Chek) 1 ea 02 XX Last administered on 01/22/17 01: 44; Admin Dose 1 EA; Start 01/10/17 at 02:00 Metoprolol Tartrate (Lopressor) 5 mg Q4 PRN IV FOR H.R>110; Start 01/12/17 at 17:30 Acetaminophen (Tylenol Liquid) 650 mg Q6H PRN NGT PAIN AND OR ELEVATED TEMP; Start 01/13/17 at 23:30 Apixaban (Eliquis) 2.5 mg BID NGT Last administered on 01/22/17 08:45; Admin Dose 2.5 MG; Start 01/13/17 at 21:00 Acetaminophen/ Hydrocodone Bitart ([place] (5/325)) 1 tab Q6H PRN NGT PAIN LEVEL 4-7; Start 01/13/17 at 23:30 Levetiracetam (Keppra Liquid) 1,000 mg DAILY NGT Last administered on 08:43; Admin Dose 1,000 MG; Start 01/14/17 at 09:00 Meclizine HCl (Antivert) 25 mg TID PRN NGT dizziness; Start 01/13/17 at 20:00 Zolpidem Tartrate (Ambien) 5 mg HS PRN NGT INSOMNIA; Start 01/13/17 at 20:00 Aspirin (Aspirin) 81 mg DAILY NGT Last administered on 01/22/17 08:45; Admin Dose 81 MG; Start 01/14/17 at 09:00 Docusate Sodium (Colace Liquid Cup) 100 mg BID NGT Last administered on 08:45; Admin Dose 100 MG; Start 01/13/17 at 21:00 Pantoprazole (Protonix Iv) 40 mg DAILY@06 IV Last administered on 01/22/17 05: 46; Admin Dose 40 MG; Start 01/14/17 at 06:00 Amiodarone HCl (Cordarone) 200 mg Q8 NGT Last administered on 01/22/17 05:48; Admin Dose 200 MG; Start 01/17/17 at 14:00 Insulin Glargine (Lantus) 40 unit DAILY@20 SC Last administered on 01/21/17 20: 12; Admin Dose 40 UNIT; Start 01/17/17 at 20:00 Metoprolol Tartrate 25 mg 25 mg BID NGT Last administered on 01/22/17 08:45; Admin Dose 25 MG; Start 01/19/17 at 21:00 Cefepime HCl (Maxipime 1gm/50 ml (Pmx)) 50 ml @ 100 mls/hr Q24H IVPB Last administered on 01/21/17 17:44; Admin Dose 100 MLS/HR; Start 01/20/17 at 17:00 CHRISTY LOPEZ M.D. Jan 22, 2017 17:49
[2017-01-22] MEDS: CEFEPIME 1GM/50 ML (PMX) 50 ML IVPB SCH (18:46)
[2017-01-22] MEDS ORDERED: PHYTONADIONE 10 MG/ML INJ SC ONE (19:30)
[2017-01-22] MEDS: INSULIN GLARGINE [LANtus] 3 ML PEN SC SCH (19:45)
[2017-01-23] VITALS (45 sets, daily range): BP systolic 83–149; BP diastolic 35–61; PULSE 60–79; RESP 11–22
[2017-01-23] MEDS: INSULIN ASPART [NOVOLOG] 3 ML PEN SC SCH ×6 (00:42→21:03)
[2017-01-23] MEDS: ALBUTEROL 18 GM INHALER INH SCH ×4 (01:15→19:14)
[2017-01-23] MEDS: ACCU-CHEK XX SCH (02:00)
[2017-01-23] MEDS: DEXTROSE 50% 50 ML SYRINGE IV PRN (04:58)
[2017-01-23] MEDS: PANTOPRAZOLE 40 MG INJ IV SCH (05:36)
[2017-01-23] MEDS: AMIODARONE 200 MG TAB NGT SCH ×3 (05:39→21:05)
[2017-01-23 06:12] LABS: ADD SCAN DIFF NO
[2017-01-23 06:19] LABS: BASOPHILS % 0.1 % (0.0-2.0); EOSINOPHILS # 0.1 10^3/ul (0.0-0.5); EOSINOPHILS % 0.7 % (0.0-7.0); HEMOGLOBIN 7.1 g/dl (14.0-18.0); LYMPHOCYTES # 1.2 10^3/ul (0.8-2.9); LYMPHOCYTES % 10.4 % (15.0-51.0); MEAN CORPUSCULAR HGB CONC 32.3 g/dl (32.0-37.0); MEAN CORPUSCULAR VOLUME 92.8 fl (82.0-101.0); MEAN PLATELET VOLUME 10.8 fl (7.4-10.4); MONOCYTE # 1.3 10^3/ul (0.3-0.9); MONOCYTES % 10.9 % (0.0-11.0); NEUTROPHIL # 9.1 10^3/ul (1.6-7.5); NEUTROPHILS % 77.2 % (39.0-77.0); PLATELET COUNT 147 10^3/UL (140-415); RED BLOOD COUNT 2.37 10^6/ul (4.70-6.10); RED CELL DISTRIBUTION WIDTH 13.5 % (11.5-14.5); WHITE BLOOD COUNT 11.7 10^3/ul (4.8-10.8)
[2017-01-23 06:56] LABS: ALBUMIN 3.8 g/dl (3.3-4.9); ALBUMIN/GLOBULIN RATIO 1.35; BILIRUBIN,INDIRECT 0.7 mg/dl (0-1.1); BILIRUBIN,TOTAL 0.7 mg/dl (0.2-1.3); CALCIUM 8.2 mg/dl (8.4-10.2); CREATININE 1.88 mg/dl (0.61-1.24); TOTAL PROTEIN 6.6 g/dl (6.1-8.1)
[2017-01-23] MEDS: METOPROLOL 25 MG TAB NGT SCH ×2 (08:17→21:00)
[2017-01-23] MEDS: COLLAGENASE 30 GM TUBE TOP SCH (08:17)
[2017-01-23] MEDS: APIXABAN 5 MG TABLET NGT SCH (09:00)
--- NOTE | 2017-01-23 10:05 | CONS ---
Date/Time of Note Date/Time of Note DATE: 01/23/17 TIME: 10:00 Assessment/Plan Assessment/Plan Chief Complaint/Hosp Course IMPRESSION: 1. Atrial fibrillation-Having episodes of PAF with reasonable rate control 2. Hypotension-borderline while on HD currently 3. Abnormal electrocardiogram with inferolateral T-wave inversions. 4. Respiratory failure-s/p intubation and remains thus 5. Nonhealing toe ulceration-vascular following 6. Peripheral arterial disease by arterial ultrasound of the lower extremities this admission. 7. Diabetes mellitus. 8. Fevers. 9. Positive troponin-downtrended 10.Bradycardia-improved/stable 11.-severe by echo 12.Cardiomyopathy-EF 40-45% by echo/36% by stress with no ischemia but positive scar. EF <30% by echo post arrest 14.Encephalopathy-anoxic 15. s/p cardiopulmonary arrest 01/08 Recc: -Tele -serial ecg -HD for volume removal as tolerated -Continue baby asa -eliquis-to be held today for trach -Continue PO amio in attempt to maintain SR -Continue BB as tolerated only following HR/BP closely -Will hold on afterload reduction given severe and thus fixed afterload at valve orifice -For trach today Problems: Consultation Date/Type/Reason Admit Date/Time Dec 02, 2016 at 21:01 Initial Consult Date 12/03/16 Type of Consultation: cardiology Reason for Consultation PAF Referring Provider: VIET PARKER MD Exam/Review of Systems Vital Signs Vitals Vital Signs Date Time Temp Pulse Resp B/P Pulse Ox O2 Delivery O2 Flow Rate FiO2 01/23/17 09:30 66 18 100 30 01/23/17 08:00 99.1 101/46 Mechanical Ventilator Intake and Output 01/22/17 01/22/17 01/23/17 15:00 23:00 07:00 Intake Total 290 ml 990 ml 0 ml Output Total 2010 ml 220 ml Balance 290 ml -1020 ml -220 ml Exam Review of Systems: CONSTITUTIONAL: No fevers, chills. PULMONARY: intubated CARDIOVASCULAR: No obvious chest pain/palpitations GASTROINTESTINAL: No nausea/vomiting. GENITOURINARY: No hematuria/dysuria. MUSCULOSKELETAL: No obvious myagias/arthalgias. PSYCHIATRIC: No documented depression. NEUROLOGIC: encephalopathic Constitutional: other (Encephalopathic) Head: normocephalic ENMT: intubated, mucosa pink and moist Neck: jvd (8 cm water), supple Respiratory: other (upper airway rhochi) Cardiovascular: regular rate and rhythm Gastrointestinal: non-tender, soft Musculoskeletal: muscle tone (normal) Extremities: edema (trace/B) Neurological: other (No focal deficits) Results Result Diagram: 01/23/17 0453 01/23/17 0453 Results 24 hrs Laboratory Tests Test 01/22/17 14:26 01/22/17 18:42 01/22/17 19:44 01/22/17 20:34 Bedside Glucose 119 158 166 167 Test 01/23/17 00:40 01/23/17 04:53 01/23/17 04:55 01/23/17 05:19 Bedside Glucose 156 50 L 209 White Blood Count 11.7 H Red Blood Count 2.37 L Hemoglobin 7.1 L Hematocrit 22.0 L Mean Corpuscular Volume 92.8 Mean Corpuscular Hemoglobin 30.0 Mean Corpuscular Hemoglobin Concent 32.3 Red Cell Distribution Width 13.5 Platelet Count 147 Mean Platelet Volume 10.8 H Neutrophils % 77.2 H Lymphocytes % 10.4 L Monocytes % 10.9 Eosinophils % 0.7 Basophils % 0.1 Nucleated Red Blood Cells % 0.0 Neutrophils # 9.1 H Lymphocytes # 1.2 Monocytes # 1.3 H Eosinophils # 0.1 Basophils # 0.0 Nucleated Red Blood Cells # 0.0 Sodium Level 137 Potassium Level 4.0 Chloride Level 97 Carbon Dioxide Level 32 H Anion Gap 12 Blood Urea Nitrogen 44 #H Creatinine 1.88 H Glucose Level 214 # Calcium Level 8.2 L Total Bilirubin 0.7 Direct Bilirubin 0.00 Indirect Bilirubin 0.7 Aspartate Amino Transf (AST/SGOT) 33 Alanine Aminotransferase (ALT/SGPT) 22 Alkaline Phosphatase 73 Total Protein 6.6 Albumin 3.8 Globulin 2.80 Albumin/Globulin Ratio 1.35 Test 01/23/17 05:38 01/23/17 08:00 01/23/17 09:21 Bedside Glucose 171 102 82 Medications Medications Current Medications Ondansetron HCl (Zofran Inj) 4 mg Q6H PRN IV NAUSEA AND/OR VOMITING Last administered on 12/13/16t 01:13; Admin Dose 4 MG; Start 12/02/16 at 22:30 Miscellaneous Information 1 ea NOTE XX ; Start 12/02/16 at 23:00 Glucose (Glutose) 15 gm Q15M PRN PO DECREASED GLUCOSE; Start 12/02/16 at 23:00 Glucose (Glutose) 22.5 gm Q15M PRN PO DECREASED GLUCOSE; Start 12/02/16 at 23: 00 Dextrose (D50w Syringe) 25 ml Q15M PRN IV DECREASED GLUCOSE Last administered on 12/10/16 05:52; Admin Dose 25 ML; Start 12/02/16 at 23:00 Dextrose (D50w Syringe) 50 ml Q15M PRN IV DECREASED GLUCOSE Last administered on 01/23/17 04:58; Admin Dose 50 ML; Start 12/02/16 at 23:00 Glucagon (Glucagen) 1 mg Q15M PRN IM DECREASED GLUCOSE; Start 12/02/16 at 23:00 Glucose (Glutose) 15 gm Q15M PRN BUCCAL DECREASED GLUCOSE; Start 12/02/16 at 23 :00 Gabapentin (Neurontin) 800 mg TID PO Last administered on 12/08/16 20:33; Admin Dose 800 MG; Start 12/03/16 at 09:00; Status Future Hold Benazepril HCl (Lotensin) 10 mg DAILY PO Last administered on 12/07/16 08:26; Admin Dose 10 MG; Start 12/04/16 at 09:00; Status Future Hold Acetaminophen (Tylenol Supp) 650 mg Q6H PRN [place] ELEVATED TEMPERATURE Last administered on 01/13/17 20:32; Admin Dose 650 MG; Start 12/09/16 at 17:00 Hydralazine HCl (Apresoline) 10 mg Q6H PRN IV SBP>150mm hg Last administered on 12/19/16 08:50; Admin Dose 10 MG; Start 12/11/16 at 10:30 Morphine Sulfate (morphine) 2 mg Q2H PRN IV PAIN LEVEL 4-7; Start 12/13/16 at 10 :00 Collagenase (Santyl) 1 applic DAILY TOP Last administered on 01/22/17 08:46; Admin Dose 1 APPLIC; Start 01/04/17 at 09:00 Insulin Aspart (Novolog Insulin Pen) NOVOLOG *MODERATE* ALGORI... Q4 SC Last administered on 01/23/17 00:42; Admin Dose 2 UNIT; Start 01/09/17 at 14:15 Diagnostic Test (Pha) (Accu-Chek) 1 ea 02 XX Last administered on 01/22/17 01: 44; Admin Dose 1 EA; Start 01/10/17 at 02:00 Metoprolol Tartrate (Lopressor) 5 mg Q4 PRN IV FOR H.R>110; Start 01/12/17 at 17:30 Acetaminophen (Tylenol Liquid) 650 mg Q6H PRN NGT PAIN AND OR ELEVATED TEMP; Start 01/13/17 at 23:30 Apixaban (Eliquis) 2.5 mg BID NGT Last administered on 01/22/17 20:32; Admin Dose 2.5 MG; Start 01/13/17 at 21:00 Acetaminophen/ Hydrocodone Bitart ([place] (5/325)) 1 tab Q6H PRN NGT PAIN LEVEL 4-7; Start 01/13/17 at 23:30 Levetiracetam (Keppra Liquid) 1,000 mg DAILY NGT Last administered on 08:43; Admin Dose 1,000 MG; Start 01/14/17 at 09:00 Meclizine HCl (Antivert) 25 mg TID PRN NGT dizziness; Start 01/13/17 at 20:00 Zolpidem Tartrate (Ambien) 5 mg HS PRN NGT INSOMNIA; Start 01/13/17 at 20:00 Aspirin (Aspirin) 81 mg DAILY NGT Last administered on 01/22/17 08:45; Admin Dose 81 MG; Start 01/14/17 at 09:00 Docusate Sodium (Colace Liquid Cup) 100 mg BID NGT Last administered on 20:31; Admin Dose 100 MG; Start 01/13/17 at 21:00 Pantoprazole (Protonix Iv) 40 mg DAILY@06 IV Last administered on 01/23/17 05: 36; Admin Dose 40 MG; Start 01/14/17 at 06:00 Amiodarone HCl (Cordarone) 200 mg Q8 NGT Last administered on 01/23/17 05:39; Admin Dose 200 MG; Start 01/17/17 at 14:00 Insulin Glargine (Lantus) 40 unit DAILY@20 SC Last administered on 01/22/17 19 :45; Admin Dose 40 UNIT; Start 01/17/17 at 20:00 Metoprolol Tartrate 25 mg 25 mg BID NGT Last administered on 01/22/17 20:37; Admin Dose 25 MG; Start 01/19/17 at 21:00 Cefepime HCl (Maxipime 1gm/50 ml (Pmx)) 50 ml @ 100 mls/hr Q24H IVPB Last administered on 01/22/17 18:46; Admin Dose 100 MLS/HR; Start 01/20/17 at 17:00 VICENTE LESLIE Jan 23, 2017 10:05
[2017-01-23] MEDS: LEVETIRACETAM (100 MG/ML) 5ML CUP NGT SCH (10:06)
[2017-01-23] MEDS: ASPIRIN 81 MG TAB NGT SCH (10:06)
[2017-01-23] MEDS: DOCUSATE SODIUM 10 MG/ML (10ML CUP) NGT SCH ×2 (10:06→21:04)
--- NOTE | 2017-01-23 10:41 | PN ---
Date/Time of Note Date/Time of Note DATE: 01/23/17 TIME: 10:41 Assessment/Plan VTE Prophylaxis VTE Prophylaxis Intervention: other Lines/Catheters IV [facility] Type [facility] Peripheral IV Urinary Cath still in place: Yes Reason Cath still needed: skin wounds contaminated by urine Assessment/Plan Chief Complaint/Hosp Course 1. 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 Dr. Villa is following in neurology consultation. 2. Status post cardiopulmonary arrest on 12/09/2016 and 01/08/2017. Continue supportive care. Continue ventilatory support. Dr. Rivera is following in pulmonology consultation. 2. Possible tracheobronchitis versus pneumonia. The patient is currently on antibiotics per infectious disease. Dr. Wilson's group is following in infectious disease consultation. Patient is currently on cefepime and caspofungin. Sputum cultures are positive for pseudomonas. 3. Acute kidney injury on chronic kidney disease which progressed to end-stage renal disease. Dr. Remy is following in nephrology consultation. Continue hemodialysis per nephrology. 4. Paroxysmal atrial fibrillation. The patient is continued on aspirin, amiodarone and Eliquis. Dr. Cobian is following in cardiology consultation. 5. Diabetes mellitus type 2. Continue patient's Lantus with NovoLog sliding scale coverage with Accu-Cheks q.4h while patient on nasogastric tube feeding. 6. Diabetic foot ulcer. Continue current wound care. 7. Peripheral arterial disease 8. Osteomyelitis of the distal phalanx of the left great toe and left proximal phalanx. Completed a course of antibiotics for osteomyelitis. Problems: Subjective 24 Hr Interval Summary Free Text/Dictation Patient remain sedated and intubated Exam/Review of Systems Vital Signs Vitals Vital Signs Date Time Temp Pulse Resp B/P Pulse Ox O2 Delivery O2 Flow Rate FiO2 01/23/17 10:00 72 21 102/46 100 Mechanical Ventilator 01/23/17 09:30 30 01/23/17 08:00 99.1 Intake and Output 01/22/17 01/22/17 01/23/17 15:00 23:00 07:00 Intake Total 290 ml 990 ml 0 ml Output Total 2010 ml 220 ml Balance 290 ml -1020 ml -220 ml Exam Constitutional: well developed Head: atraumatic, normocephalic Neck: supple Respiratory: diminished breath sounds Cardiovascular: regular rate and rhythm Gastrointestinal: non-tender, soft Extremities: normal pulses Results Result Diagram: 01/23/17 0453 01/23/17 0453 Results 24 hrs Laboratory Tests Test 01/22/17 14:26 01/22/17 18:42 01/22/17 19:44 01/22/17 20:34 Bedside Glucose 119 158 166 167 Test 01/23/17 00:40 01/23/17 04:53 01/23/17 04:55 01/23/17 05:19 Bedside Glucose 156 50 L 209 White Blood Count 11.7 H Red Blood Count 2.37 L Hemoglobin 7.1 L Hematocrit 22.0 L Mean Corpuscular Volume 92.8 Mean Corpuscular Hemoglobin 30.0 Mean Corpuscular Hemoglobin Concent 32.3 Red Cell Distribution Width 13.5 Platelet Count 147 Mean Platelet Volume 10.8 H Neutrophils % 77.2 H Lymphocytes % 10.4 L Monocytes % 10.9 Eosinophils % 0.7 Basophils % 0.1 Nucleated Red Blood Cells % 0.0 Neutrophils # 9.1 H Lymphocytes # 1.2 Monocytes # 1.3 H Eosinophils # 0.1 Basophils # 0.0 Nucleated Red Blood Cells # 0.0 Sodium Level 137 Potassium Level 4.0 Chloride Level 97 Carbon Dioxide Level 32 H Anion Gap 12 Blood Urea Nitrogen 44 #H Creatinine 1.88 H Glucose Level 214 # Calcium Level 8.2 L Total Bilirubin 0.7 Direct Bilirubin 0.00 Indirect Bilirubin 0.7 Aspartate Amino Transf (AST/SGOT) 33 Alanine Aminotransferase (ALT/SGPT) 22 Alkaline Phosphatase 73 Total Protein 6.6 Albumin 3.8 Globulin 2.80 Albumin/Globulin Ratio 1.35 Test 01/23/17 05:38 01/23/17 08:00 01/23/17 09:21 Bedside Glucose 171 102 82 Medications Medications Current Medications Ondansetron HCl (Zofran Inj) 4 mg Q6H PRN IV NAUSEA AND/OR VOMITING Last administered on 12/13/16 01:13; Admin Dose 4 MG; Start 12/02/16 at 22:30 Miscellaneous Information 1 ea NOTE XX ; Start 12/02/16 at 23:00 Glucose (Glutose) 15 gm Q15M PRN PO DECREASED GLUCOSE; Start 12/02/16 at 23:00 Glucose (Glutose) 22.5 gm Q15M PRN PO DECREASED GLUCOSE; Start 12/02/16 at 23: 00 Dextrose (D50w Syringe) 25 ml Q15M PRN IV DECREASED GLUCOSE Last administered on 12/10/16 05:52; Admin Dose 25 ML; Start 12/02/16 at 23:00 Dextrose (D50w Syringe) 50 ml Q15M PRN IV DECREASED GLUCOSE Last administered on 01/23/17 04:58; Admin Dose 50 ML; Start 12/02/16 at 23:00 Glucagon (Glucagen) 1 mg Q15M PRN IM DECREASED GLUCOSE; Start 12/02/16 at 23:00 Glucose (Glutose) 15 gm Q15M PRN BUCCAL DECREASED GLUCOSE; Start 12/02/16 at 23 :00 Gabapentin (Neurontin) 800 mg TID PO Last administered on 12/08/16 20:33; Admin Dose 800 MG; Start 12/03/16 at 09:00; Status Future Hold Benazepril HCl (Lotensin) 10 mg DAILY PO Last administered on 12/07/16 08:26; Admin Dose 10 MG; Start 12/04/16 at 09:00; Status Future Hold Acetaminophen (Tylenol Supp) 650 mg Q6H PRN [place] ELEVATED TEMPERATURE Last administered on 01/13/17 20:32; Admin Dose 650 MG; Start 12/09/16 at 17:00 Hydralazine HCl (Apresoline) 10 mg Q6H PRN IV SBP>150mm hg Last administered on 12/19/16 08:50; Admin Dose 10 MG; Start 12/11/16 at 10:30 Morphine Sulfate (morphine) 2 mg Q2H PRN IV PAIN LEVEL 4-7; Start 12/13/16 at 10 :00 Collagenase (Santyl) 1 applic DAILY TOP Last administered on 01/22/17 08:46; Admin Dose 1 APPLIC; Start 01/04/17 at 09:00 Insulin Aspart (Novolog Insulin Pen) NOVOLOG *MODERATE* ALGORI... Q4 SC Last administered on 01/23/17 00:42; Admin Dose 2 UNIT; Start 01/09/17 at 14:15 Diagnostic Test (Pha) (Accu-Chek) 1 ea 02 XX Last administered on 01/22/17 01: 44; Admin Dose 1 EA; Start 01/10/17 at 02:00 Metoprolol Tartrate (Lopressor) 5 mg Q4 PRN IV FOR H.R>110; Start 01/12/17 at 17:30 Acetaminophen (Tylenol Liquid) 650 mg Q6H PRN NGT PAIN AND OR ELEVATED TEMP; Start 01/13/17 at 23:30 Apixaban (Eliquis) 2.5 mg BID NGT Last administered on 01/22/17 20:32; Admin Dose 2.5 MG; Start 01/13/17 at 21:00 Acetaminophen/ Hydrocodone Bitart ([place] (5/325)) 1 tab Q6H PRN NGT PAIN LEVEL 4-7; Start 01/13/17 at 23:30 Levetiracetam (Keppra Liquid) 1,000 mg DAILY NGT Last administered on 10:06; Admin Dose 1,000 MG; Start 01/14/17 at 09:00 Meclizine HCl (Antivert) 25 mg TID PRN NGT dizziness; Start 01/13/17 at 20:00 Zolpidem Tartrate (Ambien) 5 mg HS PRN NGT INSOMNIA; Start 01/13/17 at 20:00 Aspirin (Aspirin) 81 mg DAILY NGT Last administered on 01/23/17 10:06; Admin Dose 81 MG; Start 01/14/17 at 09:00 Docusate Sodium (Colace Liquid Cup) 100 mg BID NGT Last administered on 10:06; Admin Dose 100 MG; Start 01/13/17 at 21:00 Pantoprazole (Protonix Iv) 40 mg DAILY@06 IV Last administered on 01/23/17 05: 36; Admin Dose 40 MG; Start 01/14/17 at 06:00 Amiodarone HCl (Cordarone) 200 mg Q8 NGT Last administered on 01/23/17 05:39; Admin Dose 200 MG; Start 01/17/17 at 14:00 Insulin Glargine (Lantus) 40 unit DAILY@20 SC Last administered on 01/22/17 19 :45; Admin Dose 40 UNIT; Start 01/17/17 at 20:00 Metoprolol Tartrate 25 mg 25 mg BID NGT Last administered on 01/22/17 20:37; Admin Dose 25 MG; Start 01/19/17 at 21:00 Cefepime HCl (Maxipime 1gm/50 ml (Pmx)) 50 ml @ 100 mls/hr Q24H IVPB Last administered on 01/22/17t 18:46; Admin Dose 100 MLS/HR; Start 01/20/17 at 17:00 ELTON MARMOLEJO Jan 23, 2017 10:41
[2017-01-23] MEDS ORDERED: LIDOCAINE 1% (MPF) 30 ML INJ ONE (12:00)
--- NOTE | 2017-01-23 12:30 | HPN ---
Date/Time of Note Date/Time of Note DATE: 01/23/17 TIME: 12:26 Interval H&P Admission Note Pt. seen H&P reviewed: No system changes d/w anesthesia, pt with severe aortic stenosis, in my mind there is no advantage to getting cardiac clearance as cardiac surgery would not be performed so he could get a tracheostomy. The procedure is emergent as the ET tube has been in for too long and the ICU feels that it should be performed as soon as possible. Will proceed with minimal IV sedation using predominantly local anesthesia. TRAV GALE MD Jan 23, 2017 12:30
[2017-01-23] MEDS ORDERED: BUPIVACAINE 0.5%/EPI (SDV) 30 ML INJ ONE (12:42)
[2017-01-23] MEDS ORDERED: NA BICARBONATE 8.4% 50 ML SYG ONE (12:42)
[2017-01-23] MEDS ORDERED: BUPIVACAINE 0.5%/EPI (SDV) 30 ML INJ INJ ONE (12:56)
[2017-01-23] MEDS ORDERED: NORepinephrine 8MG/250 ML (PMX 250 ML IV SCH (14:00)
--- NOTE | 2017-01-23 14:10 | CONS ---
Date/Time of Note Date/Time of Note DATE: 01/23/17 TIME: 14:03 Assessment/Plan Assessment/Plan Additional Assessment/Plan - Anemia- H/H 7.1/22.0 - getting 1 nit PRBC, fu CBC am -S/p cardiopulmonary arrest on 12/09/2016 and on 01/08/2017 - 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 Blood cultures from HD catheter on 12/13/2016 are negative to date. 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 MRI on 12/06/2016 and bone scan on showed 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 and left fourth proximal phalanx. superficial swab grew inna only - s/p right pleural effusion s/p thoracentesis with .9L removed on 12/16/2016 - severe , EF 40-45% per TTE 12/17/16 - DM - Hgb A1c 8.7% - HTN associated with DM Plan: HD- -S/p cardiopulmonary arrest on 12/09/2016 and on 01/08/2017 - 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 Blood cultures from HD catheter on 12/13/2016 are negative to date. 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 MRI on 12/06/2016 and bone scan on showed 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 and left fourth proximal phalanx. superficial swab grew inna only - s/p right pleural effusion s/p thoracentesis with .9L removed on 12/16/2016 - severe , EF 40-45% per TTE 12/17/16 - DM - Hgb A1c 8.7% - HTN associated with DM Plan: Getting HD today- will continue to follow up for HD need s/p family meeting today, family wants to have Trach and PEG placement - sp Trach today neurology following pt has severe , very labile BP sometimes with HD Further recommendations depend upon patient's clinical course. Plan of care dw Dr Juan M Remy /staff Consultation Date/Type/Reason Admit Date/Time Dec 02, 2016 at 21:01 Initial Consult Date 12/08/16 Type of Consultation: cardiology Referring Provider: VIET PARKER MD 24 HR Interval Summary Subjective hx not possible: pt non-verbal, pt critical status Constitutional: requiring IVF, requiring O2 Exam/Review of Systems Vital Signs Vitals Vital Signs Date Time Temp Pulse Resp B/P Pulse Ox O2 Delivery O2 Flow Rate FiO2 01/23/17 13:27 69 01/23/17 13:25 16 100 30 01/23/17 10:00 102/46 Mechanical Ventilator 01/23/17 08:00 99.1 Intake and Output 01/22/17 01/22/17 01/23/17 15:00 23:00 07:00 Intake Total 290 ml 990 ml 0 ml Output Total 2010 ml 220 ml Balance 290 ml -1020 ml -220 ml Exam Constitutional: frail Respiratory: clear to auscultation, normal air movement, other (SP Trach placenent today- intact) Cardiovascular: nl pulses, regular rate and rhythm Gastrointestinal: non-tender, other (OGT noted), soft Musculoskeletal: muscle weakness, other (left foot infection) Neurological: unresponsive Results Result Diagram: 01/23/17 0453 01/23/17 0453 Results 24 hrs Laboratory Tests Test 01/22/17 14:26 01/22/17 18:42 01/22/17 19:44 01/22/17 20:34 Bedside Glucose 119 158 166 167 Test 01/23/17 00:40 01/23/17 04:53 01/23/17 04:55 01/23/17 05:19 Bedside Glucose 156 50 L 209 White Blood Count 11.7 H Red Blood Count 2.37 L Hemoglobin 7.1 L Hematocrit 22.0 L Mean Corpuscular Volume 92.8 Mean Corpuscular Hemoglobin 30.0 Mean Corpuscular Hemoglobin Concent 32.3 Red Cell Distribution Width 13.5 Platelet Count 147 Mean Platelet Volume 10.8 H Neutrophils % 77.2 H Lymphocytes % 10.4 L Monocytes % 10.9 Eosinophils % 0.7 Basophils % 0.1 Nucleated Red Blood Cells % 0.0 Neutrophils # 9.1 H Lymphocytes # 1.2 Monocytes # 1.3 H Eosinophils # 0.1 Basophils # 0.0 Nucleated Red Blood Cells # 0.0 Sodium Level 137 Potassium Level 4.0 Chloride Level 97 Carbon Dioxide Level 32 H Anion Gap 12 Blood Urea Nitrogen 44 #H Creatinine 1.88 H Glucose Level 214 # Calcium Level 8.2 L Total Bilirubin 0.7 Direct Bilirubin 0.00 Indirect Bilirubin 0.7 Aspartate Amino Transf (AST/SGOT) 33 Alanine Aminotransferase (ALT/SGPT) 22 Alkaline Phosphatase 73 Total Protein 6.6 Albumin 3.8 Globulin 2.80 Albumin/Globulin Ratio 1.35 Test 01/23/17 05:38 01/23/17 08:00 01/23/17 09:21 01/23/17 10:41 Bedside Glucose 171 102 82 73 Test 01/23/17 11:13 01/23/17 11:49 01/23/17 13:35 Bedside Glucose 79 86 91 Medications Medications Current Medications Ondansetron HCl (Zofran Inj) 4 mg Q6H PRN IV NAUSEA AND/OR VOMITING Last administered on 12/13/16 01:13; Admin Dose 4 MG; Start 12/02/16 at 22:30 Miscellaneous Information 1 ea NOTE XX ; Start 12/02/16 at 23:00 Glucose (Glutose) 15 gm Q15M PRN PO DECREASED GLUCOSE; Start 12/02/16 at 23:00 Glucose (Glutose) 22.5 gm Q15M PRN PO DECREASED GLUCOSE; Start 12/02/16 at 23: 00 Dextrose (D50w Syringe) 25 ml Q15M PRN IV DECREASED GLUCOSE Last administered on 12/10/16 05:52; Admin Dose 25 ML; Start 12/02/16 at 23:00 Dextrose (D50w Syringe) 50 ml Q15M PRN IV DECREASED GLUCOSE Last administered on 01/23/17 04:58; Admin Dose 50 ML; Start 12/02/16 at 23:00 Glucagon (Glucagen) 1 mg Q15M PRN IM DECREASED GLUCOSE; Start 12/02/16 at 23:00 Glucose (Glutose) 15 gm Q15M PRN BUCCAL DECREASED GLUCOSE; Start 12/02/16 at 23 :00 Gabapentin (Neurontin) 800 mg TID PO Last administered on 12/08/16 20:33; Admin Dose 800 MG; Start 12/03/16 at 09:00; Status Future Hold Benazepril HCl (Lotensin) 10 mg DAILY PO Last administered on 12/07/16 08:26; Admin Dose 10 MG; Start 12/04/16 at 09:00; Status Future Hold Acetaminophen (Tylenol Supp) 650 mg Q6H PRN [place] ELEVATED TEMPERATURE Last administered on 01/13/17 20:32; Admin Dose 650 MG; Start 12/09/16 at 17:00 Hydralazine HCl (Apresoline) 10 mg Q6H PRN IV SBP>150mm hg Last administered on 12/19/16 08:50; Admin Dose 10 MG; Start 12/11/16 at 10:30 Morphine Sulfate (morphine) 2 mg Q2H PRN IV PAIN LEVEL 4-7; Start 12/13/16 at 10 :00 Collagenase (Santyl) 1 applic DAILY TOP Last administered on 01/22/17 08:46; Admin Dose 1 APPLIC; Start 01/04/17 at 09:00 Insulin Aspart (Novolog Insulin Pen) NOVOLOG *MODERATE* ALGORI... Q4 SC Last administered on 01/23/17 00:42; Admin Dose 2 UNIT; Start 01/09/17 at 14:15 Diagnostic Test (Pha) (Accu-Chek) 1 ea 02 XX Last administered on 01/22/17 01: 44; Admin Dose 1 EA; Start 01/10/17 at 02:00 Metoprolol Tartrate (Lopressor) 5 mg Q4 PRN IV FOR H.R>110; Start 01/12/17 at 17:30 Acetaminophen (Tylenol Liquid) 650 mg Q6H PRN NGT PAIN AND OR ELEVATED TEMP; Start 01/13/17 at 23:30 Apixaban (Eliquis) 2.5 mg BID NGT Last administered on 01/22/17 20:32; Admin Dose 2.5 MG; Start 01/13/17 at 21:00 Acetaminophen/ Hydrocodone Bitart ([place] (5/325)) 1 tab Q6H PRN NGT PAIN LEVEL 4-7; Start 01/13/17 at 23:30 Levetiracetam (Keppra Liquid) 1,000 mg DAILY NGT Last administered on 10:06; Admin Dose 1,000 MG; Start 01/14/17 at 09:00 Meclizine HCl (Antivert) 25 mg TID PRN NGT dizziness; Start 01/13/17 at 20:00 Zolpidem Tartrate (Ambien) 5 mg HS PRN NGT INSOMNIA; Start 01/13/17 at 20:00 Aspirin (Aspirin) 81 mg DAILY NGT Last administered on 01/23/17 10:06; Admin Dose 81 MG; Start 01/14/17 at 09:00 Docusate Sodium (Colace Liquid Cup) 100 mg BID NGT Last administered on 10:06; Admin Dose 100 MG; Start 01/13/17 at 21:00 Pantoprazole (Protonix Iv) 40 mg DAILY@06 IV Last administered on 01/23/17 05: 36; Admin Dose 40 MG; Start 01/14/17 at 06:00 Amiodarone HCl (Cordarone) 200 mg Q8 NGT Last administered on 01/23/17 05:39; Admin Dose 200 MG; Start 01/17/17 at 14:00 Insulin Glargine (Lantus) 40 unit DAILY@20 SC Last administered on 01/22/17 19 :45; Admin Dose 40 UNIT; Start 01/17/17 at 20:00 Metoprolol Tartrate 25 mg 25 mg BID NGT Last administered on 01/22/17 20:37; Admin Dose 25 MG; Start 01/19/17 at 21:00 Cefepime HCl 50 ml @ 100 mls/hr Q24H IVPB Last administered on 01/22/17 18:46 ; Admin Dose 100 MLS/HR; Start 01/20/17 at 17:00 Norepinephrine (Levophed) 250 ml @ 1.875 mls/ hr TITRATE IV ; Start 01/23/17 at 14:00; Status UNV YULIANA SIMMONS Jan 23, 2017 14:10
--- NOTE | 2017-01-23 15:40 | CONS ---
Date/Time of Note Date/Time of Note DATE: 01/23/17 TIME: 15:39 Consult Date/Type/Reason Admit Date/Time Dec 02, 2016 at 21:01 Initial Consult Date 12/08/16 Type of Consultation: Pulm/CCM Ordering Provider: VIET PARKER MD Subjective s/p trach earlier today. Objective Vital Signs Date Time Temp Pulse Resp B/P Pulse Ox O2 Delivery O2 Flow Rate FiO2 01/23/17 15:00 61 16 121/55 100 Mechanical Ventilator 01/23/17 14:30 98.6 01/23/17 13:25 30 Intake and Output 01/22/17 01/22/17 01/23/17 15:00 23:00 07:00 Intake Total 290 ml 990 ml 0 ml Output Total 2010 ml 220 ml Balance 290 ml -1020 ml -220 ml Exam HEENT: Neck supple; ++ JVD; no LAD; trach in place CVS: Irreg irreg, S1 and S2 CHEST: Bilateral rales ABD: Soft, NT, + BS EXT: No c/c + edema Results/Medications Result Diagram: 01/23/17 0453 01/23/17 0453 Results 24 hrs Laboratory Tests Test 01/22/17 18:42 01/22/17 19:44 01/22/17 20:34 01/23/17 00:40 Bedside Glucose 158 166 167 156 Test 01/23/17 04:53 01/23/17 04:55 01/23/17 05:19 01/23/17 05:38 White Blood Count 11.7 H Red Blood Count 2.37 L Hemoglobin 7.1 L Hematocrit 22.0 L Mean Corpuscular Volume 92.8 Mean Corpuscular Hemoglobin 30.0 Mean Corpuscular Hemoglobin Concent 32.3 Red Cell Distribution Width 13.5 Platelet Count 147 Mean Platelet Volume 10.8 H Neutrophils % 77.2 H Lymphocytes % 10.4 L Monocytes % 10.9 Eosinophils % 0.7 Basophils % 0.1 Nucleated Red Blood Cells % 0.0 Neutrophils # 9.1 H Lymphocytes # 1.2 Monocytes # 1.3 H Eosinophils # 0.1 Basophils # 0.0 Nucleated Red Blood Cells # 0.0 Sodium Level 137 Potassium Level 4.0 Chloride Level 97 Carbon Dioxide Level 32 H Anion Gap 12 Blood Urea Nitrogen 44 #H Creatinine 1.88 H Glucose Level 214 # Calcium Level 8.2 L Total Bilirubin 0.7 Direct Bilirubin 0.00 Indirect Bilirubin 0.7 Aspartate Amino Transf (AST/SGOT) 33 Alanine Aminotransferase (ALT/SGPT) 22 Alkaline Phosphatase 73 Total Protein 6.6 Albumin 3.8 Globulin 2.80 Albumin/Globulin Ratio 1.35 Bedside Glucose 50 L 209 171 Test 01/23/17 08:00 01/23/17 09:21 01/23/17 10:41 01/23/17 11:13 Bedside Glucose 102 82 73 79 Test 01/23/17 11:49 01/23/17 13:35 Bedside Glucose 86 91 Medications Current Medications Ondansetron HCl (Zofran Inj) 4 mg Q6H PRN IV NAUSEA AND/OR VOMITING Last administered on 12/13/16 01:13; Admin Dose 4 MG; Start 12/02/16 at 22:30 Miscellaneous Information 1 ea NOTE XX ; Start 12/02/16 at 23:00 Glucose (Glutose) 15 gm Q15M PRN PO DECREASED GLUCOSE; Start 12/02/16 at 23:00 Glucose (Glutose) 22.5 gm Q15M PRN PO DECREASED GLUCOSE; Start 12/02/16 at 23: 00 Dextrose (D50w Syringe) 25 ml Q15M PRN IV DECREASED GLUCOSE Last administered on 12/10/16 05:52; Admin Dose 25 ML; Start 12/02/16 at 23:00 Dextrose (D50w Syringe) 50 ml Q15M PRN IV DECREASED GLUCOSE Last administered on 01/23/17 04:58; Admin Dose 50 ML; Start 12/02/16 at 23:00 Glucagon (Glucagen) 1 mg Q15M PRN IM DECREASED GLUCOSE; Start 12/02/16 at 23:00 Glucose (Glutose) 15 gm Q15M PRN BUCCAL DECREASED GLUCOSE; Start 12/02/16 at 23 :00 Gabapentin (Neurontin) 800 mg TID PO Last administered on 12/08/16 20:33; Admin Dose 800 MG; Start 12/03/16 at 09:00; Status Future Hold Benazepril HCl (Lotensin) 10 mg DAILY PO Last administered on 12/07/16 08:26; Admin Dose 10 MG; Start 12/04/16 at 09:00; Status Future Hold Acetaminophen (Tylenol Supp) 650 mg Q6H PRN [place] ELEVATED TEMPERATURE Last administered on 01/13/17 20:32; Admin Dose 650 MG; Start 12/09/16 at 17:00 Hydralazine HCl (Apresoline) 10 mg Q6H PRN IV SBP>150mm hg Last administered on 12/19/16 08:50; Admin Dose 10 MG; Start 12/11/16 at 10:30 Morphine Sulfate (morphine) 2 mg Q2H PRN IV PAIN LEVEL 4-7; Start 12/13/16 at 10 :00 Collagenase (Santyl) 1 applic DAILY TOP Last administered on 01/22/17 08:46; Admin Dose 1 APPLIC; Start 01/04/17 at 09:00 Insulin Aspart (Novolog Insulin Pen) NOVOLOG *MODERATE* ALGORI... Q4 SC Last administered on 01/23/17 00:42; Admin Dose 2 UNIT; Start 01/09/17 at 14:15 Diagnostic Test (Pha) (Accu-Chek) 1 ea 02 XX Last administered on 01/22/17 01: 44; Admin Dose 1 EA; Start 01/10/17 at 02:00 Metoprolol Tartrate (Lopressor) 5 mg Q4 PRN IV FOR H.R>110; Start 01/12/17 at 17:30 Acetaminophen (Tylenol Liquid) 650 mg Q6H PRN NGT PAIN AND OR ELEVATED TEMP; Start 01/13/17 at 23:30 Apixaban (Eliquis) 2.5 mg BID NGT Last administered on 01/22/17 20:32; Admin Dose 2.5 MG; Start 01/13/17 at 21:00 Acetaminophen/ Hydrocodone Bitart ([place] (5/325)) 1 tab Q6H PRN NGT PAIN LEVEL 4-7; Start 01/13/17 at 23:30 Levetiracetam (Keppra Liquid) 1,000 mg DAILY NGT Last administered on 10:06; Admin Dose 1,000 MG; Start 01/14/17 at 09:00 Meclizine HCl (Antivert) 25 mg TID PRN NGT dizziness; Start 01/13/17 at 20:00 Zolpidem Tartrate (Ambien) 5 mg HS PRN NGT INSOMNIA; Start 01/13/17 at 20:00 Aspirin (Aspirin) 81 mg DAILY NGT Last administered on 01/23/17 10:06; Admin Dose 81 MG; Start 01/14/17 at 09:00 Docusate Sodium (Colace Liquid Cup) 100 mg BID NGT Last administered on 10:06; Admin Dose 100 MG; Start 01/13/17 at 21:00 Pantoprazole (Protonix Iv) 40 mg DAILY@06 IV Last administered on 01/23/17 05: 36; Admin Dose 40 MG; Start 01/14/17 at 06:00 Amiodarone HCl (Cordarone) 200 mg Q8 NGT Last administered on 01/23/17 15:08; Admin Dose 200 MG; Start 01/17/17 at 14:00 Insulin Glargine (Lantus) 40 unit DAILY@20 SC Last administered on 01/22/17 19 :45; Admin Dose 40 UNIT; Start 01/17/17 at 20:00 Metoprolol Tartrate 25 mg 25 mg BID NGT Last administered on 01/22/17 20:37; Admin Dose 25 MG; Start 01/19/17 at 21:00 Cefepime HCl 50 ml @ 100 mls/hr Q24H IVPB Last administered on 01/22/17 18:46 ; Admin Dose 100 MLS/HR; Start 01/20/17 at 17:00 Norepinephrine 250 ml @ 1.875 mls/ hr TITRATE IV ; Start 01/23/17 at 14:00; Stop 01/23/17 at 23:59 Norepinephrine/ Dextrose (Levophed/D5W) 500 ml @ 1.87 mls/hr TITRATE IV ; Start 01/23/17 at 14:30 Assessment/Plan Additional Assessment/Plan IMP: 1. s/p Cardiopulmonary Arrest: Likely a respiratory event leading to the asystolic event 2. CHF/Volume overload 3. Respiratory Failure/Vent 4. Anoxic Brain Encephalopathy 5. s/p Fungemia 6. CKD-on HD 7. Anemia RECS: 1. Vent support 2. CXR post-trach 3. Keep off sedatives 4. TF/Free H20 35 min cc time JACOB SANTIZO MD Jan 23, 2017 15:40
[2017-01-23] MEDS: CEFEPIME 1GM/50 ML (PMX) 50 ML IVPB SCH (17:17)
--- NOTE | 2017-01-23 18:13 | CONS ---
YUMIKO ALATORRE [employer] DIRECTOR OF ADMISSIONS 01/23/17 1813: Date/Time of Note Date/Time of Note DATE: 01/23/17 TIME: 18:10 Assessment/Plan Assessment/Plan Chief Complaint/Hosp Course - recurrent cardiopulmonary arrest on 12/09/2016 and on 01/08/2017 - sepsis due to possible tracheobronchitis/pneumonia - possible tracheobronchitis/pneumonia due to pseudomonas - s/p recurrent sepsis - 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 Blood cultures from HD catheter on 12/13/2016 are negative to date. 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 MRI on 12/06/2016 and bone scan on showed 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 and left fourth proximal phalanx. superficial swab grew inna only. At present, no e/o persistent infection - recurrent pleural effusion - s/p right pleural effusion s/p thoracentesis with .9L removed on 12/16/2016; ( Note: there is no pleural fluid cx since orders were placed after Right thoracentesis, and Left thoracentesis was not performed on 12/17/16 d/t insufficient fluid) - funguria - ARANZA on CKD that progressed to ESRD and started on HD from 12/09/2016 - oliguria - improved - A fib -> PAF - small nonreversible perfusion abnormality in the inferoapical and inferior carver; EF 36% per Lexiscan 12/24/2016 - severe , EF 40-45% per TTE 12/17/16 - DM - Hgb A1c 8.7% - HTN associated with DM - recurrent episodes of respiratory failure - acute encephalopathy with anoxic brain injury - stage 3 decubitus ulcer of coccyx without evidence of infection - urinary retention - VDRF s/p tracheostomy 01/23/2017 NOTE: Pt completed 6 weeks (12/03/2016-01/15/2017) of antibiotics to treat 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 and left fourth proximal phalanx ; s/p pip/tazo 12/03/16-01/08/17; linezolid 01/08/17-01/20/17; caspofungin 01/12/17-01/21/17. recommendations: - continue renally dosed cefepime for pseudomonas (01/15/2017-) - continue local wound care of L 1st toe and coccyx Management d/w [facility] OPERATOR CABALINA Andrew and Dr. Moses Critical care time spent: 30 min Problems: Consultation Date/Type/Reason Admit Date/Time Dec 02, 2016 at 21:01 Initial Consult Date 12/03/16 Type of Consultation: Infectious Disease Referring Provider: VIET PARKRE MD 24 HR Interval Summary Free Text/Dictation S/p tracheostomy today; plan for PEG placement tomorrow per d/w nursing staff. Unable to perform ROS d/t chronic encephalopathy. Subjective hx not possible: pt non-verbal Exam/Review of Systems Vital Signs Vitals Vital Signs Date Time Temp Pulse Resp B/P Pulse Ox O2 Delivery O2 Flow Rate FiO2 01/23/17 17:30 67 19 106/42 100 Mechanical Ventilator 01/23/17 17:26 30 01/23/17 16:00 98.9 Intake and Output 01/22/17 01/22/17 01/23/17 15:00 23:00 07:00 Intake Total 290 ml 990 ml 0 ml Output Total 2010 ml 220 ml Balance 290 ml -1020 ml -220 ml Exam Constitutional: frail, chronically debilitated, non-verbal Head: atraumatic, normocephalic Eyes: nl conjunctiva, nl lids, nl sclera ENMT: intubated, nl external ears & nose, other (NGT with tube feeds intact) Neck: other (New trach in place with minimal bleeding noted - RN notified; R IJ permacath with no e/o infection) Respiratory: clear to auscultation anteriorly Cardiovascular: regular rate and rhythm, systolic murmur Gastrointestinal: non-tender, soft Genitourinary - Male: other (condom catheter in place) Musculoskeletal: nl extremities to inspection Extremities: No clubbing, cyanosis or edema Neurological: unresponsive Skin: other (See nurse note for details - stage 3 coccygeal decub), rash or lesions (eschar on plantar aspect of L great toe - dressing c/d/i) Results Result Diagram: 01/23/17 0453 01/23/17 0453 Results 24 hrs Laboratory Tests Test 01/22/17 18:42 01/22/17 19:44 01/22/17 20:34 01/23/17 00:40 Bedside Glucose 158 166 167 156 Test 01/23/17 04:53 01/23/17 04:55 01/23/17 05:19 01/23/17 05:38 White Blood Count 11.7 H Red Blood Count 2.37 L Hemoglobin 7.1 L Hematocrit 22.0 L Mean Corpuscular Volume 92.8 Mean Corpuscular Hemoglobin 30.0 Mean Corpuscular Hemoglobin Concent 32.3 Red Cell Distribution Width 13.5 Platelet Count 147 Mean Platelet Volume 10.8 H Neutrophils % 77.2 H Lymphocytes % 10.4 L Monocytes % 10.9 Eosinophils % 0.7 Basophils % 0.1 Nucleated Red Blood Cells % 0.0 Neutrophils # 9.1 H Lymphocytes # 1.2 Monocytes # 1.3 H Eosinophils # 0.1 Basophils # 0.0 Nucleated Red Blood Cells # 0.0 Sodium Level 137 Potassium Level 4.0 Chloride Level 97 Carbon Dioxide Level 32 H Anion Gap 12 Blood Urea Nitrogen 44 #H Creatinine 1.88 H Glucose Level 214 # Calcium Level 8.2 L Total Bilirubin 0.7 Direct Bilirubin 0.00 Indirect Bilirubin 0.7 Aspartate Amino Transf (AST/SGOT) 33 Alanine Aminotransferase (ALT/SGPT) 22 Alkaline Phosphatase 73 Total Protein 6.6 Albumin 3.8 Globulin 2.80 Albumin/Globulin Ratio 1.35 Bedside Glucose 50 L 209 171 Test 01/23/17 08:00 01/23/17 09:21 01/23/17 10:41 01/23/17 11:13 Bedside Glucose 102 82 73 79 Test 01/23/17 11:49 01/23/17 13:35 01/23/17 17:16 Bedside Glucose 86 91 109 Medications Medications Current Medications Ondansetron HCl (Zofran Inj) 4 mg Q6H PRN IV NAUSEA AND/OR VOMITING Last administered on 12/13/16t 01:13; Admin Dose 4 MG; Start 12/02/16 at 22:30 Miscellaneous Information 1 ea NOTE XX ; Start 12/02/16 at 23:00 Glucose (Glutose) 15 gm Q15M PRN PO DECREASED GLUCOSE; Start 12/02/16 at 23:00 Glucose (Glutose) 22.5 gm Q15M PRN PO DECREASED GLUCOSE; Start 12/02/16 at 23: 00 Dextrose (D50w Syringe) 25 ml Q15M PRN IV DECREASED GLUCOSE Last administered on 12/10/16 05:52; Admin Dose 25 ML; Start 12/02/16 at 23:00 Dextrose (D50w Syringe) 50 ml Q15M PRN IV DECREASED GLUCOSE Last administered on 01/23/17 04:58; Admin Dose 50 ML; Start 12/02/16 at 23:00 Glucagon (Glucagen) 1 mg Q15M PRN IM DECREASED GLUCOSE; Start 12/02/16 at 23:00 Glucose (Glutose) 15 gm Q15M PRN BUCCAL DECREASED GLUCOSE; Start 12/02/16 at 23 :00 Gabapentin (Neurontin) 800 mg TID PO Last administered on 12/08/16 20:33; Admin Dose 800 MG; Start 12/03/16 at 09:00; Status Future Hold Benazepril HCl (Lotensin) 10 mg DAILY PO Last administered on 12/07/16 08:26; Admin Dose 10 MG; Start 12/04/16 at 09:00; Status Future Hold Acetaminophen (Tylenol Supp) 650 mg Q6H PRN [place] ELEVATED TEMPERATURE Last administered on 01/13/17 20:32; Admin Dose 650 MG; Start 12/09/16 at 17:00 Hydralazine HCl (Apresoline) 10 mg Q6H PRN IV SBP>150mm hg Last administered on 12/19/16 08:50; Admin Dose 10 MG; Start 12/11/16 at 10:30 Morphine Sulfate (morphine) 2 mg Q2H PRN IV PAIN LEVEL 4-7; Start 12/13/16 at 10 :00 Collagenase (Santyl) 1 applic DAILY TOP Last administered on 01/22/17 08:46; Admin Dose 1 APPLIC; Start 01/04/17 at 09:00 Insulin Aspart (Novolog Insulin Pen) NOVOLOG *MODERATE* ALGORI... Q4 SC Last administered on 01/23/17 00:42; Admin Dose 2 UNIT; Start 01/09/17 at 14:15 Diagnostic Test (Pha) (Accu-Chek) 1 ea 02 XX Last administered on 01/22/17 01: 44; Admin Dose 1 EA; Start 01/10/17 at 02:00 Metoprolol Tartrate (Lopressor) 5 mg Q4 PRN IV FOR H.R>110; Start 01/12/17 at 17:30 Acetaminophen (Tylenol Liquid) 650 mg Q6H PRN NGT PAIN AND OR ELEVATED TEMP; Start 01/13/17 at 23:30 Apixaban (Eliquis) 2.5 mg BID NGT Last administered on 01/22/17 20:32; Admin Dose 2.5 MG; Start 01/13/17 at 21:00 Acetaminophen/ Hydrocodone Bitart ([place] (5/325)) 1 tab Q6H PRN NGT PAIN LEVEL 4-7; Start 01/13/17 at 23:30 Levetiracetam (Keppra Liquid) 1,000 mg DAILY NGT Last administered on 10:06; Admin Dose 1,000 MG; Start 01/14/17 at 09:00 Meclizine HCl (Antivert) 25 mg TID PRN NGT dizziness; Start 01/13/17 at 20:00 Zolpidem Tartrate (Ambien) 5 mg HS PRN NGT INSOMNIA; Start 01/13/17 at 20:00 Aspirin (Aspirin) 81 mg DAILY NGT Last administered on 01/23/17 10:06; Admin Dose 81 MG; Start 01/14/17 at 09:00 Docusate Sodium (Colace Liquid Cup) 100 mg BID NGT Last administered on 10:06; Admin Dose 100 MG; Start 01/13/17 at 21:00 Pantoprazole (Protonix Iv) 40 mg DAILY@06 IV Last administered on 01/23/17 05: 36; Admin Dose 40 MG; Start 01/14/17 at 06:00 Amiodarone HCl (Cordarone) 200 mg Q8 NGT Last administered on 01/23/17 15:08; Admin Dose 200 MG; Start 01/17/17 at 14:00 Insulin Glargine (Lantus) 40 unit DAILY@20 SC Last administered on 01/22/17 19 :45; Admin Dose 40 UNIT; Start 01/17/17 at 20:00 Metoprolol Tartrate 25 mg 25 mg BID NGT Last administered on 01/22/17 20:37; Admin Dose 25 MG; Start 01/19/17 at 21:00 Cefepime HCl 50 ml @ 100 mls/hr Q24H IVPB Last administered on 01/23/17 17:17 ; Admin Dose 100 MLS/HR; Start 01/20/17 at 17:00 Norepinephrine 250 ml @ 1.875 mls/ hr TITRATE IV ; Start 01/23/17 at 14:00; Stop 01/23/17 at 23:59 Norepinephrine/ Dextrose (Levophed/D5W) 500 ml @ 1.87 mls/hr TITRATE IV ; Start 01/23/17 at 14:30 CHRISTY MOSES M.D. 01/29/17 1941: Assessment/Plan Assessment/Plan Additional Assessment/Plan Aurelia attestation: I discussed the management with ELODIA Alatorre and agree with above Exam/Review of Systems Results Result Diagram: 01/23/17 0453 01/23/17 0453 YUMIKO ALATORRE NP Jan 23, 2017 18:13 CHRISTY MOSES M.D. Jan 29, 2017 19:41
--- NOTE | 2017-01-23 19:24 | OPR ---
DATE OF OPERATION: PREOPERATIVE DIAGNOSIS: Respiratory failure. POSTOPERATIVE DIAGNOSIS: Respiratory failure. PROCEDURE: Tracheostomy with Luca flap. SURGEON: Trav Nichols MD ANESTHESIA: General anesthesia. COMPLICATIONS: None. ESTIMATED BLOOD LOSS: Minimal. PROCEDURE IN DETAIL: After informed consent was obtained, the patient was brought to the operating room and placed in supine position. General anesthesia was then induced, although the vast majority of his anesthesia was 7 mL of 0.25% Marcaine with 1:100,000 epinephrine. Anesthesia simply gave so me intravenous pain medicine. After sufficient period of time had elapsed, the patient prepped and draped in a sterile fashion. A vertical incision was made in the lower neck overlying the trachea. The incision was taken down through the skin and subcutaneous tissues with a 15 blade. At this poi nt, the electrocautery was used in cutting and coagulation mode dissecting down to the level of the strap muscles. These were reflected in the midline. Laterally, the thyroid was identified and diss ected in the midline laterally. At this point, I made an incision between the second and third trac heal rings. A Luca flap was created and sutured to the skin using a simple chromic suture. The en dotracheal tube was pulled proximally to the point where it could no longer be seen through the woun d at which point the #6 Shiley cuffed tube was placed without difficulty. Good CO2 was obtained. S mitra sutures were placed. It was fixed with tracheal tapes. At this point, the patient was then bryant kened and transferred back to the ICU in stable condition. Dictated By: TRAV NICHOLS MD DM/NTS Conf#: [id number] DID#: [id number] CC: VIET PARKER MD;*EndCC*
[2017-01-23] MEDS: INSULIN GLARGINE [LANtus] 3 ML PEN SC SCH (21:02)
[2017-01-24] VITALS (51 sets, daily range): BP systolic 77–133; BP diastolic 36–76; PULSE 69–86; RESP 10–25
[2017-01-24] MEDS: INSULIN ASPART [NOVOLOG] 3 ML PEN SC SCH ×6 (01:00→20:54)
[2017-01-24] MEDS: ALBUTEROL 18 GM INHALER INH SCH ×4 (01:12→19:32)
[2017-01-24] MEDS: ACCU-CHEK XX SCH (02:00)
[2017-01-24] MEDS: AMIODARONE 200 MG TAB NGT SCH ×3 (05:50→22:45)
[2017-01-24] MEDS: PANTOPRAZOLE 40 MG INJ IV SCH (05:50)
[2017-01-24 06:42] LABS: ADD SCAN DIFF NO
[2017-01-24 06:58] LABS: BASOPHILS % 0.2 % (0.0-2.0); EOSINOPHILS # 0.1 10^3/ul (0.0-0.5); EOSINOPHILS % 0.5 % (0.0-7.0); HEMATOCRIT 23.8 % (42.0-52.0); HEMOGLOBIN 8.1 g/dl (14.0-18.0); LYMPHOCYTES # 1.3 10^3/ul (0.8-2.9); LYMPHOCYTES % 9.5 % (15.0-51.0); MEAN CORPUSCULAR HEMOGLOBIN 31.5 pg (29.0-33.0); MEAN CORPUSCULAR VOLUME 92.6 fl (82.0-101.0); MEAN PLATELET VOLUME 10.7 fl (7.4-10.4); MONOCYTE # 1.2 10^3/ul (0.3-0.9); NEUTROPHIL # 10.5 10^3/ul (1.6-7.5); NEUTROPHILS % 79.9 % (39.0-77.0); PLATELET COUNT 144 10^3/UL (140-415); RED BLOOD COUNT 2.57 10^6/ul (4.70-6.10); RED CELL DISTRIBUTION WIDTH 13.6 % (11.5-14.5); WHITE BLOOD COUNT 13.2 10^3/ul (4.8-10.8)
[2017-01-24 07:17] LABS: ALBUMIN 3.9 g/dl (3.3-4.9); ALBUMIN/GLOBULIN RATIO 1.18; BILIRUBIN,INDIRECT 0.7 mg/dl (0-1.1); BILIRUBIN,TOTAL 0.7 mg/dl (0.2-1.3); CALCIUM 8.6 mg/dl (8.4-10.2); CREATININE 1.96 mg/dl (0.61-1.24); TOTAL PROTEIN 7.2 g/dl (6.1-8.1)
[2017-01-24 07:36] LABS: INR 1.36; PROTIME 16.8 Sec (12.2-14.2); PT RATIO 1.3
[2017-01-24] MEDS: METOPROLOL 25 MG TAB NGT SCH ×2 (10:00→20:50)
[2017-01-24] MEDS: DOCUSATE SODIUM 10 MG/ML (10ML CUP) NGT SCH ×2 (10:13→20:51)
[2017-01-24] MEDS: LEVETIRACETAM (100 MG/ML) 5ML CUP NGT SCH (10:13)
--- NOTE | 2017-01-24 10:16 | CONS ---
Date/Time of Note Date/Time of Note DATE: 01/24/17 TIME: 10:13 Assessment/Plan Assessment/Plan Additional Assessment/Plan Ventilator setting; AC of 16, tidal volume 500, PEEP of 5, 30% FiO2. Assessment recommendations; next 1. Patient admitted for recurrent respiratory failure to ICU after CPR on the floor. Patient developed acute respiratory failure due to flash pulmonary edema from underlying cardiomyopathy. 2. Anoxic brain injury. 3. Chronic renal failure. 4. Anemia. 5. Questionable right toe osteomyelitis. 6. Tracheal site bleed. 7. Fungemia. 8. History of diabetes and hypertension. Continue current supportive care. Transfuse fresh frozen plasma for control of tracheal bleed site. Consider stopping antibiotics. Prognosis is poor. Consultation Date/Type/Reason Admit Date/Time Dec 02, 2016 at 21:01 Initial Consult Date 12/03/16 Type of Consultation: Pulmonary/critical care Referring Provider: VIET PARKER MD 24 HR Interval Summary Free Text/Dictation Patient condition remains critical. Underwent tracheostomy yesterday. Patient is having tracheal bleed around the insertion site. Which is not responding well to local hemostasis. General exam; elderly male, on ventilator via tracheostomy currently unresponsive, currently in no distress as well. Exam/Review of Systems Vital Signs Vitals Vital Signs Date Time Temp Pulse Resp B/P Pulse Ox O2 Delivery O2 Flow Rate FiO2 01/24/17 08:30 74 01/24/17 08:00 30 01/24/17 07:00 18 104/52 100 01/24/17 06:00 Mechanical Ventilator 01/24/17 04:00 98.0 Intake and Output 01/23/17 01/23/17 01/24/17 15:00 23:00 07:00 Intake Total 80 ml 200 ml 0 ml Output Total 35 ml 10 ml 505 ml Balance 45 ml 190 ml -505 ml Exam HEENT exam is; supple neck, no JVD. No lymphadenopathy. Midline trachea. No thyromegaly. Tracheostomy in place. Bleeding seen around the insertion site which is not copious. Patient is edentulous. Chest examination; clear to auscultation. S1-S2 audible, no murmurs. Regular rhythm. Abdomen examination; soft, no organomegaly. Bowel sounds audible. Extremity examination; no peripheral edema. 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 Results Result Diagram: 01/24/17 0540 01/24/17 0540 Results 24 hrs Laboratory Tests Test 01/23/17 10:41 01/23/17 11:13 01/23/17 11:49 01/23/17 13:35 Bedside Glucose 73 79 86 91 Test 01/23/17 17:16 01/23/17 20:54 01/24/17 01:03 01/24/17 05:18 Bedside Glucose 109 150 119 Lab Scanned Report BLOOD TRANSFUSION Test 01/24/17 05:40 01/24/17 05:47 01/24/17 07:54 White Blood Count 13.2 H Red Blood Count 2.57 L Hemoglobin 8.1 L Hematocrit 23.8 L Mean Corpuscular Volume 92.6 Mean Corpuscular Hemoglobin 31.5 Mean Corpuscular Hemoglobin Concent 34.0 Red Cell Distribution Width 13.6 Platelet Count 144 Mean Platelet Volume 10.7 H Neutrophils % 79.9 H Lymphocytes % 9.5 L Monocytes % 9.0 Eosinophils % 0.5 Basophils % 0.2 Nucleated Red Blood Cells % 0.0 Neutrophils # 10.5 H Lymphocytes # 1.3 Monocytes # 1.2 H Eosinophils # 0.1 Basophils # 0.0 Nucleated Red Blood Cells # 0.0 Prothrombin Time 16.8 H Prothrombin Time Ratio 1.3 INR International Normalized Ratio 1.36 Sodium Level 140 Potassium Level 4.0 Chloride Level 101 Carbon Dioxide Level 27 Anion Gap 16 Blood Urea Nitrogen 60 H Creatinine 1.96 H Glucose Level 72 # Calcium Level 8.6 Total Bilirubin 0.7 Direct Bilirubin 0.00 Indirect Bilirubin 0.7 Aspartate Amino Transf (AST/SGOT) 43 Alanine Aminotransferase (ALT/SGPT) 29 Alkaline Phosphatase 77 Total Protein 7.2 Albumin 3.9 Globulin 3.30 H Albumin/Globulin Ratio 1.18 Bedside Glucose 80 102 Medications Medications Current Medications Ondansetron HCl (Zofran Inj) 4 mg Q6H PRN IV NAUSEA AND/OR VOMITING Last administered on 12/13/16 01:13; Admin Dose 4 MG; Start 12/02/16 at 22:30 Miscellaneous Information 1 ea NOTE XX ; Start 12/02/16 at 23:00 Glucose (Glutose) 15 gm Q15M PRN PO DECREASED GLUCOSE; Start 12/02/16 at 23:00 Glucose (Glutose) 22.5 gm Q15M PRN PO DECREASED GLUCOSE; Start 12/02/16 at 23: 00 Dextrose (D50w Syringe) 25 ml Q15M PRN IV DECREASED GLUCOSE Last administered on 12/10/16 05:52; Admin Dose 25 ML; Start 12/02/16 at 23:00 Dextrose (D50w Syringe) 50 ml Q15M PRN IV DECREASED GLUCOSE Last administered on 01/23/17 04:58; Admin Dose 50 ML; Start 12/02/16 at 23:00 Glucagon (Glucagen) 1 mg Q15M PRN IM DECREASED GLUCOSE; Start 12/02/16 at 23:00 Glucose (Glutose) 15 gm Q15M PRN BUCCAL DECREASED GLUCOSE; Start 12/02/16 at 23 :00 Gabapentin (Neurontin) 800 mg TID PO Last administered on 12/08/16 20:33; Admin Dose 800 MG; Start 12/03/16 at 09:00; Status Future Hold Benazepril HCl (Lotensin) 10 mg DAILY PO Last administered on 12/07/16 08:26; Admin Dose 10 MG; Start 12/04/16 at 09:00; Status Future Hold Acetaminophen (Tylenol Supp) 650 mg Q6H PRN [place] ELEVATED TEMPERATURE Last administered on 01/13/17 20:32; Admin Dose 650 MG; Start 12/09/16 at 17:00 Hydralazine HCl (Apresoline) 10 mg Q6H PRN IV SBP>150mm hg Last administered on 12/19/16 08:50; Admin Dose 10 MG; Start 12/11/16 at 10:30 Morphine Sulfate (morphine) 2 mg Q2H PRN IV PAIN LEVEL 4-7; Start 12/13/16 at 10 :00 Collagenase (Santyl) 1 applic DAILY TOP Last administered on 01/22/17 08:46; Admin Dose 1 APPLIC; Start 01/04/17 at 09:00 Insulin Aspart (Novolog Insulin Pen) NOVOLOG *MODERATE* ALGORI... Q4 SC Last administered on 01/23/17 21:03; Admin Dose 2 UNIT; Start 01/09/17 at 14:15 Diagnostic Test (Pha) (Accu-Chek) 1 ea 02 XX Last administered on 01/22/17 01: 44; Admin Dose 1 EA; Start 01/10/17 at 02:00 Metoprolol Tartrate (Lopressor) 5 mg Q4 PRN IV FOR H.R>110; Start 01/12/17 at 17:30 Acetaminophen (Tylenol Liquid) 650 mg Q6H PRN NGT PAIN AND OR ELEVATED TEMP; Start 01/13/17 at 23:30 Apixaban (Eliquis) 2.5 mg BID NGT Last administered on 01/22/17 20:32; Admin Dose 2.5 MG; Start 01/13/17 at 21:00; Status Future hold Acetaminophen/ Hydrocodone Bitart ([place] (5/325)) 1 tab Q6H PRN NGT PAIN LEVEL 4-7; Start 01/13/17 at 23:30 Levetiracetam (Keppra Liquid) 1,000 mg DAILY NGT Last administered on 10:06; Admin Dose 1,000 MG; Start 01/14/17 at 09:00 Meclizine HCl (Antivert) 25 mg TID PRN NGT dizziness; Start 01/13/17 at 20:00 Zolpidem Tartrate (Ambien) 5 mg HS PRN NGT INSOMNIA; Start 01/13/17 at 20:00 Aspirin (Aspirin) 81 mg DAILY NGT Last administered on 01/23/17 10:06; Admin Dose 81 MG; Start 01/14/17 at 09:00 Docusate Sodium (Colace Liquid Cup) 100 mg BID NGT Last administered on 21:04; Admin Dose 100 MG; Start 01/13/17 at 21:00 Pantoprazole (Protonix Iv) 40 mg DAILY@06 IV Last administered on 01/24/17 05: 50; Admin Dose 40 MG; Start 01/14/17 at 06:00 Amiodarone HCl (Cordarone) 200 mg Q8 NGT Last administered on 01/23/17 21:05; Admin Dose 200 MG; Start 01/17/17 at 14:00 Insulin Glargine (Lantus) 40 unit DAILY@20 SC Last administered on 01/23/17 21 :02; Admin Dose 40 UNIT; Start 01/17/17 at 20:00 Metoprolol Tartrate 25 mg 25 mg BID NGT Last administered on 01/22/17 20:37; Admin Dose 25 MG; Start 01/19/17 at 21:00 Cefepime HCl 50 ml @ 100 mls/hr Q24H IVPB Last administered on 01/23/17t 17:17 ; Admin Dose 100 MLS/HR; Start 01/20/17 at 17:00 Norepinephrine/ Dextrose (Levophed/D5W) 500 ml @ 1.87 mls/hr TITRATE IV ; Start 01/23/17 at 14:30 IKE MULLER Jan 24, 2017 10:16
[2017-01-24] MEDS: COLLAGENASE 30 GM TUBE TOP SCH (10:46)
[2017-01-24] MEDS: ASPIRIN 81 MG TAB NGT SCH (11:00)
--- NOTE | 2017-01-24 12:58 | PN ---
Date/Time of Note Date/Time of Note DATE: 01/24/17 TIME: 12:51 Assessment/Plan VTE Prophylaxis VTE Prophylaxis Intervention: SCD's Lines/Catheters IV [facility]ter [facility] (from [facility]): Peripheral IV Urinary Cath still in place: Yes Reason Cath still needed: urinary retention Assessment/Plan Chief Complaint/Hosp Course Patient is status post tracheostomy yesterday, undergoing transfusion of 1 unit of FFP, status post hemodialysis today with 2 L removed, G-tube feeding is on hold for possible G-tube placement today. ASSESSMENT AND PLAN: - Status post tracheostomy by Dr. Nichols on 01/23. - Anoxic encephalopathy. Dr. Villa is following in neurology consultation. - Status post cardiopulmonary arrest on 12/09/2016 and 01/08/2017. Continue supportive care. Continue ventilatory support. Dr. Rivera is following in pulmonology consultation. - Possible tracheobronchitis/ pneumonia. Sputum cultures positive for Pseudomonas. Dr. Wilson[facility] is following in infectious disease consultation. Continued on cefepime. - Acute kidney injury on chronic kidney disease which progressed to end-stage renal disease. Dr. Remy is following in nephrology consultation. Continue hemodialysis per nephrology. - Paroxysmal atrial fibrillation. The patient is continued on aspirin. Dr. Cobian is following in cardiology consultation. - Diabetes mellitus type 2. Continue patient's Lantus with NovoLog sliding scale coverage with Accu-Cheks q.4h while patient on nasogastric tube feeding. - Diabetic foot ulcer. Continue current wound care. - Peripheral arterial disease - Osteomyelitis of the distal phalanx of the left great toe and left proximal phalanx. Completed a course of antibiotics for osteomyelitis. Further recommendations based on clinical course. Plan of care discussed with Dr. Heredia. Problems: Exam/Review of Systems Vital Signs Vitals Vital Signs Date Time Temp Pulse Resp B/P Pulse Ox O2 Delivery O2 Flow Rate FiO2 01/24/17 12:30 76 13 111/56 100 01/24/17 12:00 98.1 01/24/17 11:00 Mechanical Ventilator Trach Collar 01/24/17 08:00 30 Intake and Output 01/23/17 01/23/17 01/24/17 15:00 23:00 07:00 Intake Total 80 ml 200 ml 0 ml Output Total 35 ml 10 ml 505 ml Balance 45 ml 190 ml -505 ml Exam Constitutional: non-verbal Head: atraumatic, normocephalic Neck: supple Respiratory: diminished breath sounds Cardiovascular: nl pulses Gastrointestinal: non-tender, soft Extremities: normal pulses Neurological: unresponsive Results Result Diagram: 01/24/17 0540 01/24/17 0540 Results 24 hrs Laboratory Tests Test 01/23/17 13:35 01/23/17 17:16 01/23/17 20:54 01/24/17 01:03 Bedside Glucose 91 109 150 119 Test 01/24/17 05:18 01/24/17 05:40 01/24/17 05:47 01/24/17 07:54 Lab Scanned Report BLOOD TRANSFUSION White Blood Count 13.2 H Red Blood Count 2.57 L Hemoglobin 8.1 L Hematocrit 23.8 L Mean Corpuscular Volume 92.6 Mean Corpuscular Hemoglobin 31.5 Mean Corpuscular Hemoglobin Concent 34.0 Red Cell Distribution Width 13.6 Platelet Count 144 Mean Platelet Volume 10.7 H Neutrophils % 79.9 H Lymphocytes % 9.5 L Monocytes % 9.0 Eosinophils % 0.5 Basophils % 0.2 Nucleated Red Blood Cells % 0.0 Neutrophils # 10.5 H Lymphocytes # 1.3 Monocytes # 1.2 H Eosinophils # 0.1 Basophils # 0.0 Nucleated Red Blood Cells # 0.0 Prothrombin Time 16.8 H Prothrombin Time Ratio 1.3 INR International Normalized Ratio 1.36 Sodium Level 140 Potassium Level 4.0 Chloride Level 101 Carbon Dioxide Level 27 Anion Gap 16 Blood Urea Nitrogen 60 H Creatinine 1.96 H Glucose Level 72 # Calcium Level 8.6 Total Bilirubin 0.7 Direct Bilirubin 0.00 Indirect Bilirubin 0.7 Aspartate Amino Transf (AST/SGOT) 43 Alanine Aminotransferase (ALT/SGPT) 29 Alkaline Phosphatase 77 Total Protein 7.2 Albumin 3.9 Globulin 3.30 H Albumin/Globulin Ratio 1.18 Bedside Glucose 80 102 Medications Medications Current Medications Ondansetron HCl (Zofran Inj) 4 mg Q6H PRN IV NAUSEA AND/OR VOMITING Last administered on 12/13/16 01:13; Admin Dose 4 MG; Start 12/02/16 at 22:30 Miscellaneous Information 1 ea NOTE XX ; Start 12/02/16 at 23:00 Glucose (Glutose) 15 gm Q15M PRN PO DECREASED GLUCOSE; Start 12/02/16 at 23:00 Glucose (Glutose) 22.5 gm Q15M PRN PO DECREASED GLUCOSE; Start 12/02/16 at 23: 00 Dextrose (D50w Syringe) 25 ml Q15M PRN IV DECREASED GLUCOSE Last administered on 12/10/16 05:52; Admin Dose 25 ML; Start 12/02/16 at 23:00 Dextrose (D50w Syringe) 50 ml Q15M PRN IV DECREASED GLUCOSE Last administered on 01/23/17 04:58; Admin Dose 50 ML; Start 12/02/16 at 23:00 Glucagon (Glucagen) 1 mg Q15M PRN IM DECREASED GLUCOSE; Start 12/02/16 at 23:00 Glucose (Glutose) 15 gm Q15M PRN BUCCAL DECREASED GLUCOSE; Start 12/02/16 at 23 :00 Gabapentin (Neurontin) 800 mg TID PO Last administered on 12/08/16 20:33; Admin Dose 800 MG; Start 12/03/16 at 09:00; Status Future Hold Benazepril HCl (Lotensin) 10 mg DAILY PO Last administered on 12/07/16 08:26; Admin Dose 10 MG; Start 12/04/16 at 09:00; Status Future Hold Acetaminophen (Tylenol Supp) 650 mg Q6H PRN [place] ELEVATED TEMPERATURE Last administered on 01/13/17 20:32; Admin Dose 650 MG; Start 12/09/16 at 17:00 Hydralazine HCl (Apresoline) 10 mg Q6H PRN IV SBP>150mm hg Last administered on 12/19/16 08:50; Admin Dose 10 MG; Start 12/11/16 at 10:30 Morphine Sulfate (morphine) 2 mg Q2H PRN IV PAIN LEVEL 4-7; Start 12/13/16 at 10 :00 Collagenase (Santyl) 1 applic DAILY TOP Last administered on 01/24/17 10:46; Admin Dose 1 APPLIC; Start 01/04/17 at 09:00 Insulin Aspart (Novolog Insulin Pen) NOVOLOG *MODERATE* ALGORI... Q4 SC Last administered on 01/23/17 21:03; Admin Dose 2 UNIT; Start 01/09/17 at 14:15 Diagnostic Test (Pha) (Accu-Chek) 1 ea 02 XX Last administered on 01/22/17 01: 44; Admin Dose 1 EA; Start 01/10/17 at 02:00 Metoprolol Tartrate (Lopressor) 5 mg Q4 PRN IV FOR H.R>110; Start 01/12/17 at 17:30 Acetaminophen (Tylenol Liquid) 650 mg Q6H PRN NGT PAIN AND OR ELEVATED TEMP; Start 01/13/17 at 23:30 Apixaban (Eliquis) 2.5 mg BID NGT Last administered on 01/22/17 20:32; Admin Dose 2.5 MG; Start 01/13/17 at 21:00; Status Future hold Acetaminophen/ Hydrocodone Bitart ([place] (5/325)) 1 tab Q6H PRN NGT PAIN LEVEL 4-7; Start 01/13/17 at 23:30 Levetiracetam (Keppra Liquid) 1,000 mg DAILY NGT Last administered on 10:13; Admin Dose 1,000 MG; Start 01/14/17 at 09:00 Meclizine HCl (Antivert) 25 mg TID PRN NGT dizziness; Start 01/13/17 at 20:00 Zolpidem Tartrate (Ambien) 5 mg HS PRN NGT INSOMNIA; Start 01/13/17 at 20:00 Aspirin (Aspirin) 81 mg DAILY NGT Last administered on 01/23/17 10:06; Admin Dose 81 MG; Start 01/14/17 at 09:00 Docusate Sodium (Colace Liquid Cup) 100 mg BID NGT Last administered on 10:13; Admin Dose 100 MG; Start 01/13/17 at 21:00 Pantoprazole (Protonix Iv) 40 mg DAILY@06 IV Last administered on 01/24/17 05: 50; Admin Dose 40 MG; Start 01/14/17 at 06:00 Amiodarone HCl (Cordarone) 200 mg Q8 NGT Last administered on 01/23/17 21:05; Admin Dose 200 MG; Start 01/17/17 at 14:00 Insulin Glargine (Lantus) 40 unit DAILY@20 SC Last administered on 01/23/17 21 :02; Admin Dose 40 UNIT; Start 01/17/17 at 20:00 Metoprolol Tartrate 25 mg 25 mg BID NGT Last administered on 6/10/17at 20:37; Admin Dose 25 MG; Start 01/19/17 at 21:00 Cefepime HCl 50 ml @ 100 mls/hr Q24H IVPB Last administered on 01/23/17 17:17 ; Admin Dose 100 MLS/HR; Start 01/20/17 at 17:00 Norepinephrine/ Dextrose (Levophed/D5W) 500 ml @ 1.87 mls/hr TITRATE IV ; Start 01/23/17 at 14:30 KIMBERLY NOYOLA Jan 24, 2017 12:58
[2017-01-24] MEDS ORDERED: DEXTROSE 5%-0.45% NACL 1,000 ML IV SCH (13:00)
--- NOTE | 2017-01-24 14:10 | HP ---
DATE OF ADMISSION: 12/02/2016 There were concerns last night about the oozing. There was a little dried blood but nothing active. At this point, nothing severe whatsoever. At this point there is really not much I am at all worried about. I would just have them continue with local care and recall ENT on a p.r.n. basis. Dictated By: TRAV BERKOWITZ/MICHELLE Conf#: [id number] DID#: [id number]
--- NOTE | 2017-01-24 14:39 | CONS ---
Date/Time of Note Date/Time of Note DATE: 01/24/17 TIME: 14:36 Assessment/Plan Assessment/Plan Chief Complaint/Hosp Course IMPRESSION: 1. Atrial fibrillation-Having episodes of PAF with reasonable rate control 2. Hypotension-borderline but remains off pressors 3. Abnormal electrocardiogram with inferolateral T-wave inversions. 4. Respiratory failure-s/p trach placement 5. Nonhealing toe ulceration-vascular following 6. Peripheral arterial disease by arterial ultrasound of the lower extremities this admission. 7. Diabetes mellitus. 8. Fevers. 9. Positive troponin-downtrended 10.Bradycardia-improved/stable 11.-severe by echo 12.Cardiomyopathy-EF 40-45% by echo/36% by stress with no ischemia but positive scar. EF <30% by echo post arrest 14.Encephalopathy-anoxic 15. s/p cardiopulmonary arrest 01/08 Recc: -Tele -serial ecg -HD for volume removal as tolerated -Continue baby asa -eliquis-to be held today for possible G tube -Continue PO amio in attempt to maintain SR -Continue BB as tolerated only following HR/BP closely and thus will decrease dose -Will hold on afterload reduction given severe and thus fixed afterload at valve orifice -For trach today Problems: Consultation Date/Type/Reason Admit Date/Time Dec 02, 2016 at 21:01 Initial Consult Date 12/03/16 Type of Consultation: cardiology Reason for Consultation PAF//cardiomyopathy Referring Provider: VIET PARKER MD Exam/Review of Systems Vital Signs Vitals Vital Signs Date Time Temp Pulse Resp B/P Pulse Ox O2 Delivery O2 Flow Rate FiO2 01/24/17 12:30 76 13 111/56 100 01/24/17 12:00 98.1 01/24/17 11:00 Mechanical Ventilator Trach Collar 01/24/17 08:00 30 Intake and Output 01/23/17 01/23/17 01/24/17 14:59 22:59 06:59 Intake Total 50 ml 200 ml 30 ml Output Total 5 ml 40 ml 505 ml Balance 45 ml 160 ml -475 ml Exam Review of Systems: CONSTITUTIONAL: No fevers, chills. PULMONARY: s/p trach CARDIOVASCULAR: No obvious chest pain/palpitations GASTROINTESTINAL: No nausea/vomiting. GENITOURINARY: No hematuria/dysuria. MUSCULOSKELETAL: No obvious myagias/arthalgias. PSYCHIATRIC: No documented depression. NEUROLOGIC: Encephalopathic Constitutional: alert Psych: no complaints Head: normocephalic ENMT: mucosa pink and moist Neck: jvd (9 cm water), supple Respiratory: diminished breath sounds (at bases/B) Cardiovascular: regular rate and rhythm Gastrointestinal: non-tender, soft Musculoskeletal: muscle tone (normal) Extremities: edema (none) Neurological: confused, lethargic Results Result Diagram: 01/24/17 0540 01/24/17 0540 Results 24 hrs Laboratory Tests Test 01/23/17 17:16 01/23/17 20:54 01/24/17 01:03 01/24/17 05:18 Bedside Glucose 109 150 119 Lab Scanned Report BLOOD TRANSFUSION Test 01/24/17 05:40 01/24/17 05:47 01/24/17 07:54 01/24/17 13:05 White Blood Count 13.2 H Red Blood Count 2.57 L Hemoglobin 8.1 L Hematocrit 23.8 L Mean Corpuscular Volume 92.6 Mean Corpuscular Hemoglobin 31.5 Mean Corpuscular Hemoglobin Concent 34.0 Red Cell Distribution Width 13.6 Platelet Count 144 Mean Platelet Volume 10.7 H Neutrophils % 79.9 H Lymphocytes % 9.5 L Monocytes % 9.0 Eosinophils % 0.5 Basophils % 0.2 Nucleated Red Blood Cells % 0.0 Neutrophils # 10.5 H Lymphocytes # 1.3 Monocytes # 1.2 H Eosinophils # 0.1 Basophils # 0.0 Nucleated Red Blood Cells # 0.0 Prothrombin Time 16.8 H Prothrombin Time Ratio 1.3 INR International Normalized Ratio 1.36 Sodium Level 140 Potassium Level 4.0 Chloride Level 101 Carbon Dioxide Level 27 Anion Gap 16 Blood Urea Nitrogen 60 H Creatinine 1.96 H Glucose Level 72 # Calcium Level 8.6 Total Bilirubin 0.7 Direct Bilirubin 0.00 Indirect Bilirubin 0.7 Aspartate Amino Transf (AST/SGOT) 43 Alanine Aminotransferase (ALT/SGPT) 29 Alkaline Phosphatase 77 Total Protein 7.2 Albumin 3.9 Globulin 3.30 H Albumin/Globulin Ratio 1.18 Bedside Glucose 80 102 94 Medications Medications Current Medications Ondansetron HCl (Zofran Inj) 4 mg Q6H PRN IV NAUSEA AND/OR VOMITING Last administered on 12/13/16t 01:13; Admin Dose 4 MG; Start 12/02/16 at 22:30 Miscellaneous Information 1 ea NOTE XX ; Start 12/02/16 at 23:00 Glucose (Glutose) 15 gm Q15M PRN PO DECREASED GLUCOSE; Start 12/02/16 at 23:00 Glucose (Glutose) 22.5 gm Q15M PRN PO DECREASED GLUCOSE; Start 12/02/16 at 23: 00 Dextrose (D50w Syringe) 25 ml Q15M PRN IV DECREASED GLUCOSE Last administered on 12/10/16 05:52; Admin Dose 25 ML; Start 12/02/16 at 23:00 Dextrose (D50w Syringe) 50 ml Q15M PRN IV DECREASED GLUCOSE Last administered on 01/23/17 04:58; Admin Dose 50 ML; Start 12/02/16 at 23:00 Glucagon (Glucagen) 1 mg Q15M PRN IM DECREASED GLUCOSE; Start 12/02/16 at 23:00 Glucose (Glutose) 15 gm Q15M PRN BUCCAL DECREASED GLUCOSE; Start 12/02/16 at 23 :00 Gabapentin (Neurontin) 800 mg TID PO Last administered on 12/08/16 20:33; Admin Dose 800 MG; Start 12/03/16 at 09:00; Status Future Hold Benazepril HCl (Lotensin) 10 mg DAILY PO Last administered on 12/07/16 08:26; Admin Dose 10 MG; Start 12/04/16 at 09:00; Status Future Hold Acetaminophen (Tylenol Supp) 650 mg Q6H PRN [place] ELEVATED TEMPERATURE Last administered on 01/13/17 20:32; Admin Dose 650 MG; Start 12/09/16 at 17:00 Hydralazine HCl (Apresoline) 10 mg Q6H PRN IV SBP>150mm hg Last administered on 12/19/16 08:50; Admin Dose 10 MG; Start 12/11/16 at 10:30 Morphine Sulfate (morphine) 2 mg Q2H PRN IV PAIN LEVEL 4-7; Start 12/13/16 at 10 :00 Collagenase (Santyl) 1 applic DAILY TOP Last administered on 01/24/17 10:46; Admin Dose 1 APPLIC; Start 01/04/17 at 09:00 Insulin Aspart (Novolog Insulin Pen) NOVOLOG *MODERATE* ALGORI... Q4 SC Last administered on 01/23/17 21:03; Admin Dose 2 UNIT; Start 01/09/17 at 14:15 Diagnostic Test (Pha) (Accu-Chek) 1 ea 02 XX Last administered on 01/22/17 01: 44; Admin Dose 1 EA; Start 01/10/17 at 02:00 Metoprolol Tartrate (Lopressor) 5 mg Q4 PRN IV FOR H.R>110; Start 01/12/17 at 17:30 Acetaminophen (Tylenol Liquid) 650 mg Q6H PRN NGT PAIN AND OR ELEVATED TEMP; Start 01/13/17 at 23:30 Apixaban (Eliquis) 2.5 mg BID NGT Last administered on 01/22/17 20:32; Admin Dose 2.5 MG; Start 01/13/17 at 21:00; Status Future hold Acetaminophen/ Hydrocodone Bitart ([place] (5/325)) 1 tab Q6H PRN NGT PAIN LEVEL 4-7; Start 01/13/17 at 23:30 Levetiracetam (Keppra Liquid) 1,000 mg DAILY NGT Last administered on 10:13; Admin Dose 1,000 MG; Start 01/14/17 at 09:00 Meclizine HCl (Antivert) 25 mg TID PRN NGT dizziness; Start 01/13/17 at 20:00 Zolpidem Tartrate (Ambien) 5 mg HS PRN NGT INSOMNIA; Start 01/13/17 at 20:00 Aspirin (Aspirin) 81 mg DAILY NGT Last administered on 01/24/17 11:00; Admin Dose 81 MG; Start 01/14/17 at 09:00 Docusate Sodium (Colace Liquid Cup) 100 mg BID NGT Last administered on 10:13; Admin Dose 100 MG; Start 01/13/17 at 21:00 Pantoprazole (Protonix Iv) 40 mg DAILY@06 IV Last administered on 01/24/17 05: 50; Admin Dose 40 MG; Start 01/14/17 at 06:00 Amiodarone HCl (Cordarone) 200 mg Q8 NGT Last administered on 01/24/17 14:08; Admin Dose 200 MG; Start 01/17/17 at 14:00 Insulin Glargine (Lantus) 40 unit DAILY@20 SC Last administered on 01/23/17 21 :02; Admin Dose 40 UNIT; Start 01/17/17 at 20:00 Metoprolol Tartrate 25 mg 25 mg BID NGT Last administered on 01/22/17 20:37; Admin Dose 25 MG; Start 01/19/17 at 21:00 Cefepime HCl 50 ml @ 100 mls/hr Q24H IVPB Last administered on 01/23/17 17:17 ; Admin Dose 100 MLS/HR; Start 01/20/17 at 17:00 Norepinephrine/ Dextrose (Levophed/D5W) 500 ml @ 1.87 mls/hr TITRATE IV ; Start 01/23/17 at 14:30 VICENTE LESLIE Jan 24, 2017 14:39
--- NOTE | 2017-01-24 16:47 | CONS ---
Date/Time of Note Date/Time of Note DATE: 01/24/17 TIME: 16:46 Assessment/Plan Assessment/Plan Additional Assessment/Plan -S/p cardiopulmonary arrest on 12/09/2016 and on 01/08/2017 - 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 Blood cultures from HD catheter on 12/13/2016 are negative to date. 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 MRI on 12/06/2016 and bone scan on showed 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 and left fourth proximal phalanx. superficial swab grew inna only - s/p right pleural effusion s/p thoracentesis with .9L removed on 12/16/2016 - severe , EF 40-45% per TTE 12/17/16 - DM - Hgb A1c 8.7% - HTN associated with DM Plan: Plan for HD today s/p Tracheostomy, on ventilator, Plan for G tube pt will need HD palcement at a unit where they can do a HD for pt with tracheostomy and PEG tube placemen t pt has severe , very labile BP sometimes with HD will continue to follow up for HD need Consultation Date/Type/Reason Admit Date/Time Dec 02, 2016 at 21:01 Initial Consult Date Type of Consultation: NEPHROLOGY Referring Provider: VIET PARKER MD 24 HR Interval Summary Free Text/Dictation s/p tracheostomy on ventilator, awaiting G tube, plan for HD today Exam/Review of Systems Vital Signs Vitals Vital Signs Date Time Temp Pulse Resp B/P Pulse Ox O2 Delivery O2 Flow Rate FiO2 01/24/17 16:00 77 01/24/17 15:33 16 100 30 01/24/17 12:30 111/56 01/24/17 12:00 98.1 01/24/17 11:00 Mechanical Ventilator Trach Collar Intake and Output 01/23/17 01/23/17 01/24/17 15:00 23:00 07:00 Intake Total 80 ml 200 ml 0 ml Output Total 35 ml 10 ml 505 ml Balance 45 ml 190 ml -505 ml Results Result Diagram: 01/24/17 0540 01/24/17 0540 Results 24 hrs Laboratory Tests Test 01/23/17 17:16 01/23/17 20:54 01/24/17 01:03 01/24/17 05:18 Bedside Glucose 109 150 119 Lab Scanned Report BLOOD TRANSFUSION Test 01/24/17 05:40 01/24/17 05:47 01/24/17 07:54 01/24/17 13:05 White Blood Count 13.2 H Red Blood Count 2.57 L Hemoglobin 8.1 L Hematocrit 23.8 L Mean Corpuscular Volume 92.6 Mean Corpuscular Hemoglobin 31.5 Mean Corpuscular Hemoglobin Concent 34.0 Red Cell Distribution Width 13.6 Platelet Count 144 Mean Platelet Volume 10.7 H Neutrophils % 79.9 H Lymphocytes % 9.5 L Monocytes % 9.0 Eosinophils % 0.5 Basophils % 0.2 Nucleated Red Blood Cells % 0.0 Neutrophils # 10.5 H Lymphocytes # 1.3 Monocytes # 1.2 H Eosinophils # 0.1 Basophils # 0.0 Nucleated Red Blood Cells # 0.0 Prothrombin Time 16.8 H Prothrombin Time Ratio 1.3 INR International Normalized Ratio 1.36 Sodium Level 140 Potassium Level 4.0 Chloride Level 101 Carbon Dioxide Level 27 Anion Gap 16 Blood Urea Nitrogen 60 H Creatinine 1.96 H Glucose Level 72 # Calcium Level 8.6 Total Bilirubin 0.7 Direct Bilirubin 0.00 Indirect Bilirubin 0.7 Aspartate Amino Transf (AST/SGOT) 43 Alanine Aminotransferase (ALT/SGPT) 29 Alkaline Phosphatase 77 Total Protein 7.2 Albumin 3.9 Globulin 3.30 H Albumin/Globulin Ratio 1.18 Bedside Glucose 80 102 94 Medications Medications Current Medications Ondansetron HCl (Zofran Inj) 4 mg Q6H PRN IV NAUSEA AND/OR VOMITING Last administered on 12/13/16 01:13; Admin Dose 4 MG; Start 12/02/16 at 22:30 Miscellaneous Information 1 ea NOTE XX ; Start 12/02/16 at 23:00 Glucose (Glutose) 15 gm Q15M PRN PO DECREASED GLUCOSE; Start 12/02/16 at 23:00 Glucose (Glutose) 22.5 gm Q15M PRN PO DECREASED GLUCOSE; Start 12/02/16 at 23: 00 Dextrose (D50w Syringe) 25 ml Q15M PRN IV DECREASED GLUCOSE Last administered on 12/10/16 05:52; Admin Dose 25 ML; Start 12/02/16 at 23:00 Dextrose (D50w Syringe) 50 ml Q15M PRN IV DECREASED GLUCOSE Last administered on 01/23/17 04:58; Admin Dose 50 ML; Start 12/02/16 at 23:00 Glucagon (Glucagen) 1 mg Q15M PRN IM DECREASED GLUCOSE; Start 12/02/16 at 23:00 Glucose (Glutose) 15 gm Q15M PRN BUCCAL DECREASED GLUCOSE; Start 12/02/16 at 23 :00 Gabapentin (Neurontin) 800 mg TID PO Last administered on 12/08/16 20:33; Admin Dose 800 MG; Start 12/03/16 at 09:00; Status Future Hold Benazepril HCl (Lotensin) 10 mg DAILY PO Last administered on 12/07/16 08:26; Admin Dose 10 MG; Start 12/04/16 at 09:00; Status Future Hold Acetaminophen (Tylenol Supp) 650 mg Q6H PRN [place] ELEVATED TEMPERATURE Last administered on 01/13/17 20:32; Admin Dose 650 MG; Start 12/09/16 at 17:00 Hydralazine HCl (Apresoline) 10 mg Q6H PRN IV SBP>150mm hg Last administered on 12/19/16 08:50; Admin Dose 10 MG; Start 12/11/16 at 10:30 Morphine Sulfate (morphine) 2 mg Q2H PRN IV PAIN LEVEL 4-7; Start 12/13/16 at 10 :00 Collagenase (Santyl) 1 applic DAILY TOP Last administered on 01/24/17 10:46; Admin Dose 1 APPLIC; Start 01/04/17 at 09:00 Insulin Aspart (Novolog Insulin Pen) NOVOLOG *MODERATE* ALGORI... Q4 SC Last administered on 01/23/17 21:03; Admin Dose 2 UNIT; Start 01/09/17 at 14:15 Diagnostic Test (Pha) (Accu-Chek) 1 ea 02 XX Last administered on 01/22/17 01: 44; Admin Dose 1 EA; Start 01/10/17 at 02:00 Metoprolol Tartrate (Lopressor) 5 mg Q4 PRN IV FOR H.R>110; Start 01/12/17 at 17:30 Acetaminophen (Tylenol Liquid) 650 mg Q6H PRN NGT PAIN AND OR ELEVATED TEMP; Start 01/13/17 at 23:30 Apixaban (Eliquis) 2.5 mg BID NGT Last administered on 01/22/17 20:32; Admin Dose 2.5 MG; Start 01/13/17 at 21:00; Status Future hold Acetaminophen/ Hydrocodone Bitart ([place] (5/325)) 1 tab Q6H PRN NGT PAIN LEVEL 4-7; Start 01/13/17 at 23:30 Levetiracetam (Keppra Liquid) 1,000 mg DAILY NGT Last administered on 10:13; Admin Dose 1,000 MG; Start 01/14/17 at 09:00 Meclizine HCl (Antivert) 25 mg TID PRN NGT dizziness; Start 01/13/17 at 20:00 Zolpidem Tartrate (Ambien) 5 mg HS PRN NGT INSOMNIA; Start 01/13/17 at 20:00 Aspirin (Aspirin) 81 mg DAILY NGT Last administered on 01/24/17 11:00; Admin Dose 81 MG; Start 01/14/17 at 09:00 Docusate Sodium (Colace Liquid Cup) 100 mg BID NGT Last administered on 10:13; Admin Dose 100 MG; Start 01/13/17 at 21:00 Pantoprazole (Protonix Iv) 40 mg DAILY@06 IV Last administered on 01/24/17 05: 50; Admin Dose 40 MG; Start 01/14/17 at 06:00 Amiodarone HCl (Cordarone) 200 mg Q8 NGT Last administered on 01/24/17 14:08; Admin Dose 200 MG; Start 01/17/17 at 14:00 Insulin Glargine 40 unit 40 unit DAILY@20 SC Last administered on 01/23/17 21: 02; Admin Dose 40 UNIT; Start 01/17/17 at 20:00 Cefepime HCl 50 ml @ 100 mls/hr Q24H IVPB Last administered on 01/23/17t 17:17 ; Admin Dose 100 MLS/HR; Start 01/20/17 at 17:00 Norepinephrine/ Dextrose (Levophed/D5W) 500 ml @ 1.87 mls/hr TITRATE IV ; Start 01/23/17 at 14:30 Metoprolol Tartrate (Lopressor) 12.5 mg BID NGT ; Start 01/24/17 at 21:00 TASHIA MCGARRY MD Jan 24, 2017 16:47
[2017-01-24] MEDS: CEFEPIME 1GM/50 ML (PMX) 50 ML IVPB SCH (17:38)
--- NOTE | 2017-01-24 17:48 | CONS ---
Date/Time of Note Date/Time of Note DATE: 01/24/17 TIME: 17:43 Assessment/Plan Assessment/Plan Chief Complaint/Hosp Course - recurrent cardiopulmonary arrest on 12/09/2016 and on 01/08/2017 - sepsis due to possible tracheobronchitis/pneumonia - possible tracheobronchitis/pneumonia due to pseudomonas - s/p recurrent sepsis - 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 Blood cultures from HD catheter on 12/13/2016 are negative to date. 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 MRI on 12/06/2016 and bone scan on showed 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 and left fourth proximal phalanx. superficial swab grew inna only. At present, no e/o persistent infection - recurrent pleural effusion - s/p right pleural effusion s/p thoracentesis with .9L removed on 12/16/2016; ( Note: there is no pleural fluid cx since orders were placed after Right thoracentesis, and Left thoracentesis was not performed on 12/17/16 d/t insufficient fluid) - funguria - ARANZA on CKD that progressed to ESRD and started on HD from 12/09/2016 - oliguria - improved - A fib -> PAF - small nonreversible perfusion abnormality in the inferoapical and inferior carver; EF 36% per Lexiscan 12/24/2016 - severe , EF 40-45% per TTE 12/17/16 - DM - Hgb A1c 8.7% - HTN associated with DM - recurrent episodes of respiratory failure - acute encephalopathy with anoxic brain injury - stage 3 decubitus ulcer of coccyx without evidence of infection - urinary retention - improved - VDRF s/p tracheostomy 01/23/2017 NOTE: Pt completed 6 weeks (12/03/2016-01/15/2017) of antibiotics to treat 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 and left fourth proximal phalanx ; s/p pip/tazo 12/03/16-01/08/17; linezolid 01/08/17-01/20/17; caspofungin 01/12/17-01/21/17. recommendations: - continue renally dosed cefepime for pseudomonas (01/15/2017-) - continue local wound care of L 1st toe and coccyx Management d/w [facility] and Dr. Wilson Critical care time spent: 30 min Problems: Consultation Date/Type/Reason Admit Date/Time Dec 02, 2016 at 21:01 Initial Consult Date 12/03/16 Type of Consultation: Infectious Disease Referring Provider: VIET PARKER MD 24 HR Interval Summary Free Text/Dictation 1 unit FFP given today and there is decreased bleeding from tracheostomy site; G tube placement rescheduled for tomorrow per d/w nursing staff. Unable to perform ROS d/t encephalopathy. Subjective hx not possible: pt non-verbal Exam/Review of Systems Vital Signs Vitals Vital Signs Date Time Temp Pulse Resp B/P Pulse Ox O2 Delivery O2 Flow Rate FiO2 01/24/17 16:00 77 01/24/17 15:33 16 100 30 01/24/17 12:30 111/56 01/24/17 12:00 98.1 01/24/17 11:00 Mechanical Ventilator Trach Collar Intake and Output 01/23/17 01/23/17 01/24/17 14:59 22:59 06:59 Intake Total 50 ml 200 ml 30 ml Output Total 5 ml 40 ml 505 ml Balance 45 ml 160 ml -475 ml Exam Constitutional: frail, chronically debilitated, non-verbal Head: atraumatic, normocephalic Eyes: nl conjunctiva, nl lids, nl sclera ENMT: intubated, nl external ears & nose, other (NGT with tube feeds intact) Neck: other (trach in place with dried blood noted on dressing; R IJ permacath with no e/o infection) Respiratory: clear to auscultation anteriorly Cardiovascular: regular rate and rhythm, systolic murmur Gastrointestinal: non-tender, soft Genitourinary - Male: other (condom catheter in place) Musculoskeletal: nl extremities to inspection Extremities: No clubbing, cyanosis or edema Neurological: unresponsive Skin: other (See nurse note for details - stage 3 coccygeal decub), rash or lesions (eschar on plantar aspect of L great toe - dressing c/d/i) Results Result Diagram: 01/24/17 0540 01/24/17 0540 Results 24 hrs Laboratory Tests Test 01/23/17 20:54 01/24/17 01:03 01/24/17 05:18 01/24/17 05:40 Bedside Glucose 150 119 Lab Scanned Report BLOOD TRANSFUSION White Blood Count 13.2 H Red Blood Count 2.57 L Hemoglobin 8.1 L Hematocrit 23.8 L Mean Corpuscular Volume 92.6 Mean Corpuscular Hemoglobin 31.5 Mean Corpuscular Hemoglobin Concent 34.0 Red Cell Distribution Width 13.6 Platelet Count 144 Mean Platelet Volume 10.7 H Neutrophils % 79.9 H Lymphocytes % 9.5 L Monocytes % 9.0 Eosinophils % 0.5 Basophils % 0.2 Nucleated Red Blood Cells % 0.0 Neutrophils # 10.5 H Lymphocytes # 1.3 Monocytes # 1.2 H Eosinophils # 0.1 Basophils # 0.0 Nucleated Red Blood Cells # 0.0 Prothrombin Time 16.8 H Prothrombin Time Ratio 1.3 INR International Normalized Ratio 1.36 Sodium Level 140 Potassium Level 4.0 Chloride Level 101 Carbon Dioxide Level 27 Anion Gap 16 Blood Urea Nitrogen 60 H Creatinine 1.96 H Glucose Level 72 # Calcium Level 8.6 Total Bilirubin 0.7 Direct Bilirubin 0.00 Indirect Bilirubin 0.7 Aspartate Amino Transf (AST/SGOT) 43 Alanine Aminotransferase (ALT/SGPT) 29 Alkaline Phosphatase 77 Total Protein 7.2 Albumin 3.9 Globulin 3.30 H Albumin/Globulin Ratio 1.18 Test 01/24/17 05:47 01/24/17 07:54 01/24/17 13:05 01/24/17 17:38 Bedside Glucose 80 102 94 118 Medications Medications Current Medications Ondansetron HCl (Zofran Inj) 4 mg Q6H PRN IV NAUSEA AND/OR VOMITING Last administered on 12/13/16 01:13; Admin Dose 4 MG; Start 12/02/16 at 22:30 Miscellaneous Information 1 ea NOTE XX ; Start 12/02/16 at 23:00 Glucose (Glutose) 15 gm Q15M PRN PO DECREASED GLUCOSE; Start 12/02/16 at 23:00 Glucose (Glutose) 22.5 gm Q15M PRN PO DECREASED GLUCOSE; Start 12/02/16 at 23: 00 Dextrose (D50w Syringe) 25 ml Q15M PRN IV DECREASED GLUCOSE Last administered on 12/10/16 05:52; Admin Dose 25 ML; Start 12/02/16 at 23:00 Dextrose (D50w Syringe) 50 ml Q15M PRN IV DECREASED GLUCOSE Last administered on 01/23/17 04:58; Admin Dose 50 ML; Start 12/02/16 at 23:00 Glucagon (Glucagen) 1 mg Q15M PRN IM DECREASED GLUCOSE; Start 12/02/16 at 23:00 Glucose (Glutose) 15 gm Q15M PRN BUCCAL DECREASED GLUCOSE; Start 12/02/16 at 23 :00 Gabapentin (Neurontin) 800 mg TID PO Last administered on 12/08/16 20:33; Admin Dose 800 MG; Start 12/03/16 at 09:00; Status Future Hold Benazepril HCl (Lotensin) 10 mg DAILY PO Last administered on 12/07/16 08:26; Admin Dose 10 MG; Start 12/04/16 at 09:00; Status Future Hold Acetaminophen (Tylenol Supp) 650 mg Q6H PRN [place] ELEVATED TEMPERATURE Last administered on 01/13/17 20:32; Admin Dose 650 MG; Start 12/09/16 at 17:00 Hydralazine HCl (Apresoline) 10 mg Q6H PRN IV SBP>150mm hg Last administered on 12/19/16 08:50; Admin Dose 10 MG; Start 12/11/16 at 10:30 Morphine Sulfate (morphine) 2 mg Q2H PRN IV PAIN LEVEL 4-7; Start 12/13/16 at 10 :00 Collagenase (Santyl) 1 applic DAILY TOP Last administered on 01/24/17 10:46; Admin Dose 1 APPLIC; Start 01/04/17 at 09:00 Insulin Aspart (Novolog Insulin Pen) NOVOLOG *MODERATE* ALGORI... Q4 SC Last administered on 01/23/17 21:03; Admin Dose 2 UNIT; Start 01/09/17 at 14:15 Diagnostic Test (Pha) (Accu-Chek) 1 ea 02 XX Last administered on 01/22/17 01: 44; Admin Dose 1 EA; Start 01/10/17 at 02:00 Metoprolol Tartrate (Lopressor) 5 mg Q4 PRN IV FOR H.R>110; Start 01/12/17 at 17:30 Acetaminophen (Tylenol Liquid) 650 mg Q6H PRN NGT PAIN AND OR ELEVATED TEMP; Start 01/13/17 at 23:30 Apixaban (Eliquis) 2.5 mg BID NGT Last administered on 01/22/17 20:32; Admin Dose 2.5 MG; Start 01/13/17 at 21:00; Status Future hold Acetaminophen/ Hydrocodone Bitart ([place] (5/325)) 1 tab Q6H PRN NGT PAIN LEVEL 4-7; Start 01/13/17 at 23:30 Levetiracetam (Keppra Liquid) 1,000 mg DAILY NGT Last administered on 10:13; Admin Dose 1,000 MG; Start 01/14/17 at 09:00 Meclizine HCl (Antivert) 25 mg TID PRN NGT dizziness; Start 01/13/17 at 20:00 Zolpidem Tartrate (Ambien) 5 mg HS PRN NGT INSOMNIA; Start 01/13/17 at 20:00 Aspirin (Aspirin) 81 mg DAILY NGT Last administered on 01/24/17 11:00; Admin Dose 81 MG; Start 01/14/17 at 09:00 Docusate Sodium (Colace Liquid Cup) 100 mg BID NGT Last administered on 10:13; Admin Dose 100 MG; Start 01/13/17 at 21:00 Pantoprazole (Protonix Iv) 40 mg DAILY@06 IV Last administered on 01/24/17 05: 50; Admin Dose 40 MG; Start 01/14/17 at 06:00 Amiodarone HCl (Cordarone) 200 mg Q8 NGT Last administered on 01/24/17 14:08; Admin Dose 200 MG; Start 01/17/17 at 14:00 Insulin Glargine 40 unit 40 unit DAILY@20 SC Last administered on 01/23/17 21: 02; Admin Dose 40 UNIT; Start 01/17/17 at 20:00 Cefepime HCl 50 ml @ 100 mls/hr Q24H IVPB Last administered on 6/12/17at 17:38 ; Admin Dose 100 MLS/HR; Start 01/20/17 at 17:00 Norepinephrine/ Dextrose (Levophed/D5W) 500 ml @ 1.87 mls/hr TITRATE IV ; Start 01/23/17 at 14:30 Metoprolol Tartrate (Lopressor) 12.5 mg BID NGT ; Start 01/24/17 at 21:00 YUMIKO ALATORRE NP Jan 24, 2017 17:48
[2017-01-24] MEDS: INSULIN GLARGINE [LANtus] 3 ML PEN SC SCH (20:57)
[2017-01-24] MEDS: APIXABAN 5 MG TABLET NGT SCH (21:00)
[2017-01-25] VITALS (66 sets, daily range): BP systolic 94–154; BP diastolic 39–68; PULSE 59–75; RESP 8–26
[2017-01-25] MEDS: ALBUTEROL 18 GM INHALER INH SCH ×4 (00:57→19:45)
[2017-01-25] MEDS: INSULIN ASPART [NOVOLOG] 3 ML PEN SC SCH ×6 (01:00→20:51)
[2017-01-25] MEDS: ACCU-CHEK XX SCH (02:00)
[2017-01-25] MEDS ORDERED: DEXTROSE 5%-0.45% NACL 1,000 ML IV SCH (03:30)
[2017-01-25] MEDS: PANTOPRAZOLE 40 MG INJ IV SCH (05:47)
[2017-01-25] MEDS: AMIODARONE 200 MG TAB NGT SCH ×4 (05:47→21:50)
[2017-01-25 06:41] LABS: ADD SCAN DIFF NO
[2017-01-25 06:54] LABS: ABNORMAL IP MESSAGE 1; HEMATOCRIT 19.3 % (42.0-52.0); MEAN CORPUSCULAR HEMOGLOBIN 31.1 pg (29.0-33.0); MEAN CORPUSCULAR HGB CONC 33.2 g/dl (32.0-37.0); MEAN CORPUSCULAR VOLUME 93.7 fl (82.0-101.0); MEAN PLATELET VOLUME 10.6 fl (7.4-10.4); PLATELET COUNT 148 10^3/UL (140-415); RED BLOOD COUNT 2.06 10^6/ul (4.70-6.10); RED CELL DISTRIBUTION WIDTH 13.8 % (11.5-14.5); WHITE BLOOD COUNT 8.8 10^3/ul (4.8-10.8)
[2017-01-25 07:04] LABS: HEMOGLOBIN 6.4 g/dl (14.0-18.0)
[2017-01-25 07:16] LABS: INR 1.31; PARTIAL THROMBOPLASTIN TIME 42.8 Sec (25.0-35.0); PROTIME 16.4 Sec (12.2-14.2); PT RATIO 1.3
[2017-01-25 07:23] LABS: CALCIUM 8.2 mg/dl (8.4-10.2); CREATININE 1.87 mg/dl (0.61-1.24); POTASSIUM 3.5 mmol/L (3.5-5.1)
[2017-01-25] MEDS: APIXABAN 5 MG TABLET NGT SCH ×2 (08:14→20:47)
[2017-01-25] MEDS ORDERED: SOD CHLORIDE 0.9% 250 ML IV* ONE ×2 (08:17→21:07)
[2017-01-25] MEDS: DOCUSATE SODIUM 10 MG/ML (10ML CUP) NGT SCH ×2 (08:42→20:47)
--- NOTE | 2017-01-25 08:48 | CONS ---
Date/Time of Note Date/Time of Note DATE: 01/25/17 TIME: 08:45 Assessment/Plan Assessment/Plan Additional Assessment/Plan 1. Atrial fibrillation-Having episodes of PAF with reasonable rate control - rate controlled, awaiting blood tx 2. Hypotension-borderline but remains off pressors- stable 3. Abnormal electrocardiogram with inferolateral T-wave inversions. 4. Respiratory failure-s/p trach placement- some bleed at site noted, blood tx 2u pRBC 5. Nonhealing toe ulceration-vascular following 6. Peripheral arterial disease by arterial ultrasound of the lower extremities this admission. 7. Diabetes mellitus. 8. Fevers. 9. Positive troponin-downtrended - no cardiac intervention planned. 10.Bradycardia-improved/stable - rate well controlled. 11.-severe by echo 12.Cardiomyopathy-EF 40-45% by echo/36% by stress with no ischemia but positive scar. EF <30% by echo post arrest 14.Encephalopathy-anoxic 15. s/p cardiopulmonary arrest 01/08 Consultation Date/Type/Reason Admit Date/Time Dec 02, 2016 at 21:01 Initial Consult Date 12/03/16 Type of Consultation: Infectious Disease Referring Provider: VIET PARKER MD 24 HR Interval Summary Free Text/Dictation Now s/p trach - some bleed at site - blood tx planned - otherwise stable (still critically ill) ROS: No fever, no chills, no nausea, no vomiting, no diarrhea/constipation No recent weight changes No chest pain, no PND, no orthopnea No dizziness, blurred vision No thirst, no heat or cold intolerance (per nurse) Exam/Review of Systems Vital Signs Vitals Vital Signs Date Time Temp Pulse Resp B/P Pulse Ox O2 Delivery O2 Flow Rate FiO2 01/25/17 07:00 67 14 133/58 100 Mechanical Ventilator 01/25/17 05:23 30 01/25/17 04:00 97.8 Intake and Output 01/24/17 01/24/17 01/25/17 15:00 23:00 07:00 Intake Total 470 ml 390 ml 100 ml Output Total 4300 ml 180 ml 300 ml Balance -3830 ml 210 ml -200 ml Exam General: WN/WD/NAD, AOx 0 HEENT: Unicetric/atraumatic/EOMI (does not follow commands) NECK: trach with blood around it Lymph: no lymphadenopathy HEART: regular with no S3, II/ systolic murmur at apex, 2/6 at base m LUNGS: Coarse sounds ABD: soft, NT, ND, +BS : Intact Neuro: non focal SKIN: chronic changes EXT: trace edema Results Result Diagram: 01/25/17 0548 01/25/17 0548 Results 24 hrs Laboratory Tests Test 01/24/17 13:05 01/24/17 17:38 01/24/17 20:53 01/25/17 02:18 Bedside Glucose 94 118 136 114 Test 01/25/17 05:25 01/25/17 05:46 01/25/17 05:48 Lab Scanned Report BLOOD TRANSFUSION Bedside Glucose 108 White Blood Count 8.8 # Red Blood Count 2.06 L Hemoglobin 6.4 #*L Hematocrit 19.3 L Mean Corpuscular Volume 93.7 Mean Corpuscular Hemoglobin 31.1 Mean Corpuscular Hemoglobin Concent 33.2 Red Cell Distribution Width 13.8 Platelet Count 148 Mean Platelet Volume 10.6 H Prothrombin Time 16.4 H Prothrombin Time Ratio 1.3 INR International Normalized Ratio 1.31 Activated Partial Thromboplast Time 42.8 H Sodium Level 142 Potassium Level 3.5 Chloride Level 103 Carbon Dioxide Level 30 Anion Gap 13 Blood Urea Nitrogen 42 #H Creatinine 1.87 H Glucose Level 97 Calcium Level 8.2 L Medications Medications Current Medications Ondansetron HCl (Zofran Inj) 4 mg Q6H PRN IV NAUSEA AND/OR VOMITING Last administered on 12/13/16 01:13; Admin Dose 4 MG; Start 12/02/16 at 22:30 Miscellaneous Information 1 ea NOTE XX ; Start 12/02/16 at 23:00 Glucose (Glutose) 15 gm Q15M PRN PO DECREASED GLUCOSE; Start 12/02/16 at 23:00 Glucose (Glutose) 22.5 gm Q15M PRN PO DECREASED GLUCOSE; Start 12/02/16 at 23: 00 Dextrose (D50w Syringe) 25 ml Q15M PRN IV DECREASED GLUCOSE Last administered on 12/10/16 05:52; Admin Dose 25 ML; Start 12/02/16 at 23:00 Dextrose (D50w Syringe) 50 ml Q15M PRN IV DECREASED GLUCOSE Last administered on 01/23/17 04:58; Admin Dose 50 ML; Start 12/02/16 at 23:00 Glucagon (Glucagen) 1 mg Q15M PRN IM DECREASED GLUCOSE; Start 12/02/16 at 23:00 Glucose (Glutose) 15 gm Q15M PRN BUCCAL DECREASED GLUCOSE; Start 12/02/16 at 23 :00 Gabapentin (Neurontin) 800 mg TID PO Last administered on 12/08/16 20:33; Admin Dose 800 MG; Start 12/03/16 at 09:00; Status Future Hold Benazepril HCl (Lotensin) 10 mg DAILY PO Last administered on 12/07/16 08:26; Admin Dose 10 MG; Start 12/04/16 at 09:00; Status Future Hold Acetaminophen (Tylenol Supp) 650 mg Q6H PRN [place] ELEVATED TEMPERATURE Last administered on 01/13/17 20:32; Admin Dose 650 MG; Start 12/09/16 at 17:00 Hydralazine HCl (Apresoline) 10 mg Q6H PRN IV SBP>150mm hg Last administered on 12/19/16 08:50; Admin Dose 10 MG; Start 12/11/16 at 10:30 Morphine Sulfate (morphine) 2 mg Q2H PRN IV PAIN LEVEL 4-7; Start 12/13/16 at 10 :00 Collagenase (Santyl) 1 applic DAILY TOP Last administered on 01/24/17 10:46; Admin Dose 1 APPLIC; Start 01/04/17 at 09:00 Insulin Aspart (Novolog Insulin Pen) NOVOLOG *MODERATE* ALGORI... Q4 SC Last administered on 01/23/17 21:03; Admin Dose 2 UNIT; Start 01/09/17 at 14:15 Diagnostic Test (Pha) (Accu-Chek) 1 ea 02 XX Last administered on 01/22/17 01: 44; Admin Dose 1 EA; Start 01/10/17 at 02:00 Metoprolol Tartrate (Lopressor) 5 mg Q4 PRN IV FOR H.R>110; Start 01/12/17 at 17:30 Acetaminophen (Tylenol Liquid) 650 mg Q6H PRN NGT PAIN AND [place] ELEVATED TEMP; Start 01/13/17 at 23:30 Apixaban (Eliquis) 2.5 mg BID NGT Last administered on 01/22/17 20:32; Admin Dose 2.5 MG; Start 01/13/17 at 21:00; Status Future hold Acetaminophen/ Hydrocodone Bitart ([place] (5/325)) 1 tab Q6H PRN NGT PAIN LEVEL 4-7; Start 01/13/17 at 23:30 Levetiracetam (Keppra Liquid) 1,000 mg DAILY NGT Last administered on 10:13; Admin Dose 1,000 MG; Start 01/14/17 at 09:00 Meclizine HCl (Antivert) 25 mg TID PRN NGT dizziness; Start 01/13/17 at 20:00 Zolpidem Tartrate (Ambien) 5 mg HS PRN NGT INSOMNIA; Start 01/13/17 at 20:00 Aspirin (Aspirin) 81 mg DAILY NGT Last administered on 01/24/17 11:00; Admin Dose 81 MG; Start 01/14/17 at 09:00 Docusate Sodium (Colace Liquid Cup) 100 mg BID NGT Last administered on 20:51; Admin Dose 100 MG; Start 01/13/17 at 21:00 Pantoprazole (Protonix Iv) 40 mg DAILY@06 IV Last administered on 01/25/17 05: 47; Admin Dose 40 MG; Start 01/14/17 at 06:00 Amiodarone HCl (Cordarone) 200 mg Q8 NGT Last administered on 01/24/17 22:45; Admin Dose 200 MG; Start 01/17/17 at 14:00 Insulin Glargine 40 unit 40 unit DAILY@20 SC Last administered on 01/24/17 20: 57; Admin Dose 40 UNIT; Start 01/17/17 at 20:00 Cefepime HCl 50 ml @ 100 mls/hr Q24H IVPB Last administered on 01/24/17 17:38 ; Admin Dose 100 MLS/HR; Start 01/20/17 at 17:00 Norepinephrine/ Dextrose (Levophed/D5W) 500 ml @ 1.87 mls/hr TITRATE IV ; Start 01/23/17 at 14:30 Metoprolol Tartrate 12.5 mg 12.5 mg BID NGT ; Start 01/24/17 at 21:00 Dextrose/Sodium Chloride (D5-1/2ns) 1,000 ml @ 50 mls/hr Q20H IV Last administered on 01/25/17t 03:28; Admin Dose 50 MLS/HR; Start 01/25/17 at 03:30 DAVE NICOLE MD Jan 25, 2017 08:48
[2017-01-25] MEDS: LEVETIRACETAM (100 MG/ML) 5ML CUP NGT SCH (08:52)
[2017-01-25] MEDS: ASPIRIN 81 MG TAB NGT SCH (08:52)
[2017-01-25] MEDS: METOPROLOL 25 MG TAB NGT SCH ×2 (08:52→20:48)
[2017-01-25] MEDS: COLLAGENASE 30 GM TUBE TOP SCH (09:17)
[2017-01-25 09:30] LABS: LYMPHOCYTES # 1.1 10^3/ul (0.8-2.9); MONOCYTE # 0.4 10^3/ul (0.3-0.9); NEUTROPHIL # 7.3 10^3/ul (1.6-7.5)
--- NOTE | 2017-01-25 11:35 | CONS ---
Date/Time of Note Date/Time of Note DATE: 01/25/17 TIME: 11:32 Assessment/Plan Assessment/Plan Additional Assessment/Plan Ventilator setting; AC of 16, tidal volume 500, PEEP of 5, 30% FiO2. Assessment recommendations; 1. Patient admitted for cellulitis of the toes and foot with subsequent development of renal failure requiring hemodialysis. 2. Underlying cardiomyopathy causing flash pulmonary edema leading to cardiac arrest status post CPR with very poor mental status indicative of underlying anoxic brain injury. 3. Status post tracheostomy. 4. Questionable toe osteomyelitis. Continue current treatment. Patient awaiting G-tube replacement. Prognosis is poor. Consultation Date/Type/Reason Admit Date/Time Dec 02, 2016 at 21:01 Initial Consult Date 12/03/16 Type of Consultation: Pulmonary/critical care Referring Provider: VIET PARKER MD 24 HR Interval Summary Free Text/Dictation Patient condition is stable. Has remained hemodynamically stable. No further tracheal site bleeding noted. General exam; elderly male, on ventilator via tracheostomy currently in no distress. Exam/Review of Systems Vital Signs Vitals Vital Signs Date Time Temp Pulse Resp B/P Pulse Ox O2 Delivery O2 Flow Rate FiO2 01/25/17 09:30 64 14 127/55 98 01/25/17 09:10 30 01/25/17 09:00 Mechanical Ventilator 01/25/17 08:00 98.7 Intake and Output 01/24/17 01/24/17 01/25/17 14:59 22:59 06:59 Intake Total 440 ml 390 ml 130 ml Output Total 4300 ml 150 ml 300 ml Balance -3860 ml 240 ml -170 ml Exam HEENT examination; supple neck, no lymphadenopathy. Trachea. No thyromegaly. Tracheostomy in place. No active bleeding seen. Patient is edentulous. Pupils are small bilaterally. Chest examination; clear to auscultation. S1-S2 audible, no murmurs. Regular rhythm. Abdomen examination; soft, no organomegaly. Bowel sounds audible. Nondistended. Extremity examination; no peripheral edema. BUSINESS TEST ANALYST examination; patient remains unresponsive. Results Result Diagram: 01/25/17 0548 01/25/17 0548 Results 24 hrs Laboratory Tests Test 01/24/17 13:05 01/24/17 17:38 01/24/17 20:53 01/25/17 02:18 Bedside Glucose 94 118 136 114 Test 01/25/17 05:25 01/25/17 05:46 01/25/17 05:48 01/25/17 08:59 Lab Scanned Report BLOOD TRANSFUSION Bedside Glucose 108 111 White Blood Count 8.8 # Red Blood Count 2.06 L Hemoglobin 6.4 #*L Hematocrit 19.3 L Mean Corpuscular Volume 93.7 Mean Corpuscular Hemoglobin 31.1 Mean Corpuscular Hemoglobin Concent 33.2 Red Cell Distribution Width 13.8 Platelet Count 148 Mean Platelet Volume 10.6 H Neutrophils % 83.0 H Lymphocytes % 13.0 L Monocytes % 4.0 Neutrophils # 7.3 Lymphocytes # 1.1 Monocytes # 0.4 Prothrombin Time 16.4 H Prothrombin Time Ratio 1.3 INR International Normalized Ratio 1.31 Activated Partial Thromboplast Time 42.8 H Sodium Level 142 Potassium Level 3.5 Chloride Level 103 Carbon Dioxide Level 30 Anion Gap 13 Blood Urea Nitrogen 42 #H Creatinine 1.87 H Glucose Level 97 Calcium Level 8.2 L Medications Medications Current Medications Ondansetron HCl (Zofran Inj) 4 mg Q6H PRN IV NAUSEA AND/OR VOMITING Last administered on 12/13/16 01:13; Admin Dose 4 MG; Start 12/02/16 at 22:30 Miscellaneous Information 1 ea NOTE XX ; Start 12/02/16 at 23:00 Glucose (Glutose) 15 gm Q15M PRN PO DECREASED GLUCOSE; Start 12/02/16 at 23:00 Glucose (Glutose) 22.5 gm Q15M PRN PO DECREASED GLUCOSE; Start 12/02/16 at 23: 00 Dextrose (D50w Syringe) 25 ml Q15M PRN IV DECREASED GLUCOSE Last administered on 12/10/16 05:52; Admin Dose 25 ML; Start 12/02/16 at 23:00 Dextrose (D50w Syringe) 50 ml Q15M PRN IV DECREASED GLUCOSE Last administered on 01/23/17 04:58; Admin Dose 50 ML; Start 12/02/16 at 23:00 Glucagon (Glucagen) 1 mg Q15M PRN IM DECREASED GLUCOSE; Start 12/02/16 at 23:00 Glucose (Glutose) 15 gm Q15M PRN BUCCAL DECREASED GLUCOSE; Start 12/02/16 at 23 :00 Gabapentin (Neurontin) 800 mg TID PO Last administered on 12/08/16 20:33; Admin Dose 800 MG; Start 12/03/16 at 09:00; Status Future Hold Benazepril HCl (Lotensin) 10 mg DAILY PO Last administered on 12/07/16 08:26; Admin Dose 10 MG; Start 12/04/16 at 09:00; Status Future Hold Acetaminophen (Tylenol Supp) 650 mg Q6H PRN [place] ELEVATED TEMPERATURE Last administered on 01/13/17 20:32; Admin Dose 650 MG; Start 12/09/16 at 17:00 Hydralazine HCl (Apresoline) 10 mg Q6H PRN IV SBP>150mm hg Last administered on 12/19/16 08:50; Admin Dose 10 MG; Start 12/11/16 at 10:30 Morphine Sulfate (morphine) 2 mg Q2H PRN IV PAIN LEVEL 4-7; Start 12/13/16 at 10 :00 Collagenase (Santyl) 1 applic DAILY TOP Last administered on 01/25/17 09:17; Admin Dose 1 APPLIC; Start 01/04/17 at 09:00 Insulin Aspart (Novolog Insulin Pen) NOVOLOG *MODERATE* ALGORI... Q4 SC Last administered on 01/23/17 21:03; Admin Dose 2 UNIT; Start 01/09/17 at 14:15 Diagnostic Test (Pha) (Accu-Chek) 1 ea 02 XX Last administered on 01/22/17 01: 44; Admin Dose 1 EA; Start 01/10/17 at 02:00 Metoprolol Tartrate (Lopressor) 5 mg Q4 PRN IV FOR H.R>110; Start 01/12/17 at 17:30 Acetaminophen (Tylenol Liquid) 650 mg Q6H PRN NGT PAIN AND OR ELEVATED TEMP; Start 01/13/17 at 23:30 Apixaban (Eliquis) 2.5 mg BID NGT Last administered on 01/22/17 20:32; Admin Dose 2.5 MG; Start 01/13/17 at 21:00; Status Future hold Acetaminophen/ Hydrocodone Bitart ([place] (5/325)) 1 tab Q6H PRN NGT PAIN LEVEL 4-7; Start 01/13/17 at 23:30 Levetiracetam (Keppra Liquid) 1,000 mg DAILY NGT Last administered on 08:52; Admin Dose 1,000 MG; Start 01/14/17 at 09:00 Meclizine HCl (Antivert) 25 mg TID PRN NGT dizziness; Start 01/13/17 at 20:00 Zolpidem Tartrate (Ambien) 5 mg HS PRN NGT INSOMNIA; Start 01/13/17 at 20:00 Aspirin (Aspirin) 81 mg DAILY NGT Last administered on 01/25/17 08:52; Admin Dose 81 MG; Start 01/14/17 at 09:00 Docusate Sodium (Colace Liquid Cup) 100 mg BID NGT Last administered on 20:51; Admin Dose 100 MG; Start 01/13/17 at 21:00 Pantoprazole (Protonix Iv) 40 mg DAILY@06 IV Last administered on 01/25/17 05: 47; Admin Dose 40 MG; Start 01/14/17 at 06:00 Amiodarone HCl (Cordarone) 200 mg Q8 NGT Last administered on 01/24/17 22:45; Admin Dose 200 MG; Start 01/17/17 at 14:00 Insulin Glargine 40 unit 40 unit DAILY@20 SC Last administered on 01/24/17 20: 57; Admin Dose 40 UNIT; Start 01/17/17 at 20:00 Cefepime HCl 50 ml @ 100 mls/hr Q24H IVPB Last administered on 01/24/17 17:38 ; Admin Dose 100 MLS/HR; Start 01/20/17 at 17:00 Norepinephrine/ Dextrose (Levophed/D5W) 500 ml @ 1.87 mls/hr TITRATE IV ; Start 01/23/17 at 14:30 Metoprolol Tartrate 12.5 mg 12.5 mg BID NGT Last administered on 01/25/17 08: 52; Admin Dose 12.5 MG; Start 01/24/17 at 21:00 Dextrose/Sodium Chloride (D5-1/2ns) 1,000 ml @ 50 mls/hr Q20H IV Last administered on 01/25/17 03:28; Admin Dose 50 MLS/HR; Start 01/25/17 at 03:30 IKE MULLER Jan 25, 2017 11:35
[2017-01-25] MEDS ORDERED: INSULIN ASPART [NOVOLOG] 3 ML PEN SC SCH (13:00)
[2017-01-25] MEDS ORDERED: NORepinephrine 8MG/250 ML (PMX 250 ML IV SCH (13:00)
[2017-01-25] MEDS ORDERED: SOD CHLORIDE 0.9% 1,000 ML IV SCH (13:00)
--- NOTE | 2017-01-25 17:27 | CONS ---
Date/Time of Note Date/Time of Note DATE: 01/25/17 TIME: 17:24 Assessment/Plan Assessment/Plan Chief Complaint/Hosp Course -- recurrent cardiopulmonary arrest on 12/09/2016 and on 01/08/2017 - sepsis due to possible tracheobronchitis/pneumonia - possible tracheobronchitis/pneumonia due to pseudomonas - s/p recurrent sepsis - 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 Blood cultures from HD catheter on 12/13/2016 are negative to date. 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 MRI on 12/06/2016 and bone scan on showed 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 and left fourth proximal phalanx. superficial swab grew inna only. At present, no e/o persistent infection - recurrent pleural effusion - s/p right pleural effusion s/p thoracentesis with .9L removed on 12/16/2016; ( Note: there is no pleural fluid cx since orders were placed after Right thoracentesis, and Left thoracentesis was not performed on 12/17/16 d/t insufficient fluid) - funguria - ARANZA on CKD that progressed to ESRD and started on HD from 12/09/2016 - oliguria - improved - A fib -> PAF - small nonreversible perfusion abnormality in the inferoapical and inferior carver; EF 36% per Lexiscan 12/24/2016 - severe , EF 40-45% per TTE 12/17/16 - DM - Hgb A1c 8.7% - HTN associated with DM - recurrent episodes of respiratory failure - acute encephalopathy with anoxic brain injury - stage 3 decubitus ulcer of coccyx without evidence of infection - urinary retention - improved - VDRF s/p tracheostomy 01/23/2017 NOTE: Pt completed 6 weeks (12/03/2016-01/15/2017) of antibiotics to treat 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 and left fourth proximal phalanx ; s/p pip/tazo 12/03/16-01/08/17; linezolid 01/08/17-01/20/17; caspofungin 01/12/17-01/21/17. recommendations: - continue renally dosed cefepime for pseudomonas (01/15/2017-) to finish 14 days total - continue local wound care of L 1st toe and coccyx Problems: Consultation Date/Type/Reason Admit Date/Time Dec 02, 2016 at 21:01 Type of Consultation: id Referring Provider: VIET PARKER MD 24 HR Interval Summary Free Text/Dictation continues on abx. s/p trach. peg planned. Exam/Review of Systems Vital Signs Vitals Vital Signs Date Time Temp Pulse Resp B/P Pulse Ox O2 Delivery O2 Flow Rate FiO2 01/25/17 16:00 68 01/25/17 15:45 16 109/53 100 01/25/17 15:00 Mechanical Ventilator 01/25/17 13:00 30 01/25/17 12:00 98.3 Intake and Output 01/24/17 01/24/17 01/25/17 15:00 23:00 07:00 Intake Total 470 ml 390 ml 100 ml Output Total 4300 ml 180 ml 300 ml Balance -3830 ml 210 ml -200 ml Exam Constitutional: non-verbal Head: normocephalic Eyes: EOMI Respiratory: clear to auscultation Cardiovascular: regular rate and rhythm Results Result Diagram: 01/25/17 0548 01/25/17 0548 Results 24 hrs Laboratory Tests Test 01/24/17 17:38 01/24/17 20:53 01/25/17 02:18 01/25/17 05:25 Bedside Glucose 118 136 114 Lab Scanned Report BLOOD TRANSFUSION Test 01/25/17 05:46 01/25/17 05:48 01/25/17 08:59 01/25/17 13:04 Bedside Glucose 108 111 116 White Blood Count 8.8 # Red Blood Count 2.06 L Hemoglobin 6.4 #*L Hematocrit 19.3 L Mean Corpuscular Volume 93.7 Mean Corpuscular Hemoglobin 31.1 Mean Corpuscular Hemoglobin Concent 33.2 Red Cell Distribution Width 13.8 Platelet Count 148 Mean Platelet Volume 10.6 H Neutrophils % 83.0 H Lymphocytes % 13.0 L Monocytes % 4.0 Neutrophils # 7.3 Lymphocytes # 1.1 Monocytes # 0.4 Prothrombin Time 16.4 H Prothrombin Time Ratio 1.3 INR International Normalized Ratio 1.31 Activated Partial Thromboplast Time 42.8 H Sodium Level 142 Potassium Level 3.5 Chloride Level 103 Carbon Dioxide Level 30 Anion Gap 13 Blood Urea Nitrogen 42 #H Creatinine 1.87 H Glucose Level 97 Calcium Level 8.2 L Medications Medications Current Medications Ondansetron HCl (Zofran Inj) 4 mg Q6H PRN IV NAUSEA AND/OR VOMITING Last administered on 12/13/16 01:13; Admin Dose 4 MG; Start 12/02/16 at 22:30 Miscellaneous Information 1 ea NOTE XX ; Start 12/02/16 at 23:00 Glucose (Glutose) 15 gm Q15M PRN PO DECREASED GLUCOSE; Start 12/02/16 at 23:00 Glucose (Glutose) 22.5 gm Q15M PRN PO DECREASED GLUCOSE; Start 12/02/16 at 23: 00 Dextrose (D50w Syringe) 25 ml Q15M PRN IV DECREASED GLUCOSE Last administered on 12/10/16 05:52; Admin Dose 25 ML; Start 12/02/16 at 23:00 Dextrose (D50w Syringe) 50 ml Q15M PRN IV DECREASED GLUCOSE Last administered on 01/23/17 04:58; Admin Dose 50 ML; Start 12/02/16 at 23:00 Glucagon (Glucagen) 1 mg Q15M PRN IM DECREASED GLUCOSE; Start 12/02/16 at 23:00 Glucose (Glutose) 15 gm Q15M PRN BUCCAL DECREASED GLUCOSE; Start 12/02/16 at 23 :00 Gabapentin (Neurontin) 800 mg TID PO Last administered on 12/08/16 20:33; Admin Dose 800 MG; Start 12/03/16 at 09:00; Status Future Hold Benazepril HCl (Lotensin) 10 mg DAILY PO Last administered on 12/07/16 08:26; Admin Dose 10 MG; Start 12/04/16 at 09:00; Status Future Hold Acetaminophen (Tylenol Supp) 650 mg Q6H PRN [place] ELEVATED TEMPERATURE Last administered on 01/13/17 20:32; Admin Dose 650 MG; Start 12/09/16 at 17:00 Hydralazine HCl (Apresoline) 10 mg Q6H PRN IV SBP>150mm hg Last administered on 12/19/16 08:50; Admin Dose 10 MG; Start 12/11/16 at 10:30 Morphine Sulfate (morphine) 2 mg Q2H PRN IV PAIN LEVEL 4-7; Start 12/13/16 at 10 :00 Collagenase (Santyl) 1 applic DAILY TOP Last administered on 01/25/17 09:17; Admin Dose 1 APPLIC; Start 01/04/17 at 09:00 Metoprolol Tartrate (Lopressor) 5 mg Q4 PRN IV FOR H.R>110; Start 01/12/17 at 17:30 Acetaminophen (Tylenol Liquid) 650 mg Q6H PRN NGT PAIN AND OR ELEVATED TEMP; Start 01/13/17 at 23:30 Apixaban (Eliquis) 2.5 mg BID NGT Last administered on 01/22/17 20:32; Admin Dose 2.5 MG; Start 01/13/17 at 21:00; Status Future hold Acetaminophen/ Hydrocodone Bitart ([place] (5/325)) 1 tab Q6H PRN NGT PAIN LEVEL 4-7; Start 01/13/17 at 23:30 Levetiracetam (Keppra Liquid) 1,000 mg DAILY NGT Last administered on 08:52; Admin Dose 1,000 MG; Start 01/14/17 at 09:00 Meclizine HCl (Antivert) 25 mg TID PRN NGT dizziness; Start 01/13/17 at 20:00 Zolpidem Tartrate (Ambien) 5 mg HS PRN NGT INSOMNIA; Start 01/13/17 at 20:00 Aspirin (Aspirin) 81 mg DAILY NGT Last administered on 01/25/17 08:52; Admin Dose 81 MG; Start 01/14/17 at 09:00 Docusate Sodium (Colace Liquid Cup) 100 mg BID NGT Last administered on 20:51; Admin Dose 100 MG; Start 01/13/17 at 21:00 Pantoprazole (Protonix Iv) 40 mg DAILY@06 IV Last administered on 01/25/17 05: 47; Admin Dose 40 MG; Start 01/14/17 at 06:00 Amiodarone HCl (Cordarone) 200 mg Q8 NGT Last administered on 01/24/17 22:45; Admin Dose 200 MG; Start 01/17/17 at 14:00 Insulin Glargine 40 unit 40 unit DAILY@20 SC Last administered on 01/24/17 20: 57; Admin Dose 40 UNIT; Start 01/17/17 at 20:00 Cefepime HCl 50 ml @ 100 mls/hr Q24H IVPB Last administered on 01/24/17 17:38 ; Admin Dose 100 MLS/HR; Start 01/20/17 at 17:00 Norepinephrine/ Dextrose (Levophed/D5W) 500 ml @ 1.87 mls/hr TITRATE IV ; Start 01/23/17 at 14:30 Metoprolol Tartrate 12.5 mg 12.5 mg BID NGT Last administered on 01/25/17 08: 52; Admin Dose 12.5 MG; Start 01/24/17 at 21:00 Dextrose/Sodium Chloride (D5-1/2ns) 1,000 ml @ 50 mls/hr Q20H IV Last administered on 01/25/17 03:28; Admin Dose 50 MLS/HR; Start 01/25/17 at 03:30 Insulin Aspart (Novolog Insulin Pen) NOVOLOG *MODERATE* ALGORI... Q4 SC ; Start 01/25/17 at 13:00 NIKHIL RAM MD Jan 25, 2017 17:27
[2017-01-25] MEDS: CEFEPIME 1GM/50 ML (PMX) 50 ML IVPB SCH (17:58)
--- NOTE | 2017-01-25 18:18 | PN ---
Date/Time of Note Date/Time of Note DATE: 01/25/17 TIME: 18:11 Assessment/Plan VTE Prophylaxis VTE Prophylaxis Intervention: SCD's Lines/Catheters IV [facility] PERMACATH Urinary Cath still in place: No (CONDOM CATHETER IN USE) Assessment/Plan Chief Complaint/Hosp Course Patient is oozing blood from tracheostomy site, status post transfusion of 2 units of FFP, undergoing of packed red blood cells transfusion. ASSESSMENT AND PLAN: - Anemia of acute blood loss, patient is undergoing blood transfusion, continue to monitor H&H. - Status post tracheostomy by Dr. Nichols on 01/23. - Anoxic encephalopathy. Dr. Villa is following in neurology consultation. - Status post cardiopulmonary arrest on 12/09/2016 and 01/08/2017. Continue supportive care. Continue ventilatory support. Dr. Rivera is following in pulmonology consultation. - Possible tracheobronchitis/ pneumonia. Sputum cultures positive for Pseudomonas. Dr. Wilson's group is following in infectious disease consultation. Continued on cefepime. - Acute kidney injury on chronic kidney disease which progressed to end-stage renal disease. Dr. Remy is following in nephrology consultation. Continue hemodialysis per nephrology. - Paroxysmal atrial fibrillation. The patient is continued on aspirin. Dr. Cobian is following in cardiology consultation. Eliquis is held. - Diabetes mellitus type 2. Continue patient's Lantus with NovoLog sliding scale coverage with Accu-Cheks q.4h while patient on nasogastric tube feeding. - Diabetic foot ulcer. Continue current wound care. - Peripheral arterial disease - Osteomyelitis of the distal phalanx of the left great toe and left proximal phalanx. Completed a course of antibiotics for osteomyelitis. Further recommendations based on clinical course. Plan of care discussed with Dr. Heredia. Problems: Exam/Review of Systems Vital Signs Vitals Vital Signs Date Time Temp Pulse Resp B/P Pulse Ox O2 Delivery O2 Flow Rate FiO2 01/25/17 17:15 66 16 100 30 01/25/17 15:45 109/53 01/25/17 15:00 Mechanical Ventilator 01/25/17 12:00 98.3 Intake and Output 01/24/17 01/24/17 01/25/17 15:00 23:00 07:00 Intake Total 470 ml 390 ml 100 ml Output Total 4300 ml 180 ml 300 ml Balance -3830 ml 210 ml -200 ml Exam Constitutional: frail, non-verbal Head: normocephalic Eyes: other (NG tube) Neck: other (Tracheostomy), supple Respiratory: diminished breath sounds Cardiovascular: nl pulses Gastrointestinal: non-tender, soft Extremities: normal pulses Neurological: unresponsive Results Result Diagram: 01/25/17 0548 01/25/17 0548 Results 24 hrs Laboratory Tests Test 01/24/17 20:53 01/25/17 02:18 01/25/17 05:25 01/25/17 05:46 Bedside Glucose 136 114 108 Lab Scanned Report BLOOD TRANSFUSION Test 01/25/17 05:48 01/25/17 08:59 01/25/17 13:04 01/25/17 17:57 White Blood Count 8.8 # Red Blood Count 2.06 L Hemoglobin 6.4 #*L Hematocrit 19.3 L Mean Corpuscular Volume 93.7 Mean Corpuscular Hemoglobin 31.1 Mean Corpuscular Hemoglobin Concent 33.2 Red Cell Distribution Width 13.8 Platelet Count 148 Mean Platelet Volume 10.6 H Neutrophils % 83.0 H Lymphocytes % 13.0 L Monocytes % 4.0 Neutrophils # 7.3 Lymphocytes # 1.1 Monocytes # 0.4 Prothrombin Time 16.4 H Prothrombin Time Ratio 1.3 INR International Normalized Ratio 1.31 Activated Partial Thromboplast Time 42.8 H Sodium Level 142 Potassium Level 3.5 Chloride Level 103 Carbon Dioxide Level 30 Anion Gap 13 Blood Urea Nitrogen 42 #H Creatinine 1.87 H Glucose Level 97 Calcium Level 8.2 L Bedside Glucose 111 116 119 Medications Medications Current Medications Ondansetron HCl (Zofran Inj) 4 mg Q6H PRN IV NAUSEA AND/OR VOMITING Last administered on 12/13/16 01:13; Admin Dose 4 MG; Start 12/02/16 at 22:30 Miscellaneous Information 1 ea NOTE XX ; Start 12/02/16 at 23:00 Glucose (Glutose) 15 gm Q15M PRN PO DECREASED GLUCOSE; Start 12/02/16 at 23:00 Glucose (Glutose) 22.5 gm Q15M PRN PO DECREASED GLUCOSE; Start 12/02/16 at 23: 00 Dextrose (D50w Syringe) 25 ml Q15M PRN IV DECREASED GLUCOSE Last administered on 12/10/16 05:52; Admin Dose 25 ML; Start 12/02/16 at 23:00 Dextrose (D50w Syringe) 50 ml Q15M PRN IV DECREASED GLUCOSE Last administered on 01/23/17 04:58; Admin Dose 50 ML; Start 12/02/16 at 23:00 Glucagon (Glucagen) 1 mg Q15M PRN IM DECREASED GLUCOSE; Start 12/02/16 at 23:00 Glucose (Glutose) 15 gm Q15M PRN BUCCAL DECREASED GLUCOSE; Start 12/02/16 at 23 :00 Gabapentin (Neurontin) 800 mg TID PO Last administered on 12/08/16 20:33; Admin Dose 800 MG; Start 12/03/16 at 09:00; Status Future Hold Benazepril HCl (Lotensin) 10 mg DAILY PO Last administered on 12/07/16 08:26; Admin Dose 10 MG; Start 12/04/16 at 09:00; Status Future Hold Acetaminophen (Tylenol Supp) 650 mg Q6H PRN [place] ELEVATED TEMPERATURE Last administered on 01/13/17 20:32; Admin Dose 650 MG; Start 12/09/16 at 17:00 Hydralazine HCl (Apresoline) 10 mg Q6H PRN IV SBP>150mm hg Last administered on 12/19/16 08:50; Admin Dose 10 MG; Start 12/11/16 at 10:30 Morphine Sulfate (morphine) 2 mg Q2H PRN IV PAIN LEVEL 4-7; Start 12/13/16 at 10 :00 Collagenase (Santyl) 1 applic DAILY TOP Last administered on 01/25/17 09:17; Admin Dose 1 APPLIC; Start 01/04/17 at 09:00 Metoprolol Tartrate (Lopressor) 5 mg Q4 PRN IV FOR H.R>110; Start 01/12/17 at 17:30 Acetaminophen (Tylenol Liquid) 650 mg Q6H PRN NGT PAIN AND OR ELEVATED TEMP; Start 01/13/17 at 23:30 Apixaban (Eliquis) 2.5 mg BID NGT Last administered on 01/22/17 20:32; Admin Dose 2.5 MG; Start 01/13/17 at 21:00; Status Future hold Acetaminophen/ Hydrocodone Bitart ([place] (5/325)) 1 tab Q6H PRN NGT PAIN LEVEL 4-7; Start 01/13/17 at 23:30 Levetiracetam (Keppra Liquid) 1,000 mg DAILY NGT Last administered on 08:52; Admin Dose 1,000 MG; Start 01/14/17 at 09:00 Meclizine HCl (Antivert) 25 mg TID PRN NGT dizziness; Start 01/13/17 at 20:00 Zolpidem Tartrate (Ambien) 5 mg HS PRN NGT INSOMNIA; Start 01/13/17 at 20:00 Aspirin (Aspirin) 81 mg DAILY NGT Last administered on 01/25/17 08:52; Admin Dose 81 MG; Start 01/14/17 at 09:00 Docusate Sodium (Colace Liquid Cup) 100 mg BID NGT Last administered on 20:51; Admin Dose 100 MG; Start 01/13/17 at 21:00 Pantoprazole (Protonix Iv) 40 mg DAILY@06 IV Last administered on 01/25/17 05: 47; Admin Dose 40 MG; Start 01/14/17 at 06:00 Amiodarone HCl (Cordarone) 200 mg Q8 NGT Last administered on 01/24/17 22:45; Admin Dose 200 MG; Start 01/17/17 at 14:00 Insulin Glargine 40 unit 40 unit DAILY@20 SC Last administered on 01/24/17 20: 57; Admin Dose 40 UNIT; Start 01/17/17 at 20:00 Cefepime HCl 50 ml @ 100 mls/hr Q24H IVPB Last administered on 01/25/17 17:58 ; Admin Dose 100 MLS/HR; Start 01/20/17 at 17:00 Norepinephrine/ Dextrose (Levophed/D5W) 500 ml @ 1.87 mls/hr TITRATE IV ; Start 01/23/17 at 14:30 Metoprolol Tartrate 12.5 mg 12.5 mg BID NGT Last administered on 01/25/17 08: 52; Admin Dose 12.5 MG; Start 01/24/17 at 21:00 Dextrose/Sodium Chloride (D5-1/2ns) 1,000 ml @ 50 mls/hr Q20H IV Last administered on 01/25/17 03:28; Admin Dose 50 MLS/HR; Start 01/25/17 at 03:30 Insulin Aspart (Novolog Insulin Pen) NOVOLOG *MODERATE* ALGORI... Q4 SC ; Start 01/25/17 at 13:00 KIMBERLY NOYOLA Jan 25, 2017 18:18
[2017-01-25 20:37] LABS: ADD SCAN DIFF NO
[2017-01-25 20:41] LABS: BASOPHILS % 0.1 % (0.0-2.0); EOSINOPHILS % 0.3 % (0.0-7.0); HEMOGLOBIN 7.5 g/dl (14.0-18.0); LYMPHOCYTES % 10.2 % (15.0-51.0); MEAN CORPUSCULAR HEMOGLOBIN 30.9 pg (29.0-33.0); MEAN CORPUSCULAR HGB CONC 34.1 g/dl (32.0-37.0); MEAN CORPUSCULAR VOLUME 90.5 fl (82.0-101.0); MEAN PLATELET VOLUME 10.1 fl (7.4-10.4); MONOCYTE # 0.7 10^3/ul (0.3-0.9); MONOCYTES % 7.6 % (0.0-11.0); NEUTROPHIL # 7.7 10^3/ul (1.6-7.5); PLATELET COUNT 134 10^3/UL (140-415); RED BLOOD COUNT 2.43 10^6/ul (4.70-6.10); RED CELL DISTRIBUTION WIDTH 14.9 % (11.5-14.5); WHITE BLOOD COUNT 9.5 10^3/ul (4.8-10.8)
--- NOTE | 2017-01-25 20:41 | CONS ---
Date/Time of Note Date/Time of Note DATE: 01/25/17 TIME: 20:40 Assessment/Plan Assessment/Plan Additional Assessment/Plan -S/p cardiopulmonary arrest on 12/09/2016 and on 01/08/2017 - 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 Blood cultures from HD catheter on 12/13/2016 are negative to date. 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 MRI on 12/06/2016 and bone scan on showed 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 and left fourth proximal phalanx. superficial swab grew inna only - s/p right pleural effusion s/p thoracentesis with .9L removed on 12/16/2016 - severe , EF 40-45% per TTE 12/17/16 - DM - Hgb A1c 8.7% - HTN associated with DM Plan: Plan for HD tomorrow, Ok to give IVF when pt will be NPO s/p Tracheostomy, on ventilator, Plan for G tube pt will need HD palcement at a unit where they can do a HD for pt with tracheostomy and PEG tube placemen t pt has severe , very labile BP sometimes with HD will continue to follow up for HD need Consultation Date/Type/Reason Admit Date/Time Dec 02, 2016 at 21:01 Initial Consult Date Type of Consultation: NEPHROLOGY Referring Provider: VIET PARKER MD 24 HR Interval Summary Free Text/Dictation remains stable, plan for HD tomorrow Exam/Review of Systems Vital Signs Vitals Vital Signs Date Time Temp Pulse Resp B/P Pulse Ox O2 Delivery O2 Flow Rate FiO2 01/25/17 18:30 70 14 150/58 100 01/25/17 18:00 Mechanical Ventilator 01/25/17 17:15 30 01/25/17 16:00 98.7 Intake and Output 01/24/17 01/24/17 01/25/17 15:00 23:00 07:00 Intake Total 470 ml 390 ml 100 ml Output Total 4300 ml 180 ml 300 ml Balance -3830 ml 210 ml -200 ml Results Result Diagram: 01/25/17 0548 01/25/17 0548 Results 24 hrs Laboratory Tests Test 01/24/17 20:53 01/25/17 02:18 01/25/17 05:25 01/25/17 05:46 Bedside Glucose 136 114 108 Lab Scanned Report BLOOD TRANSFUSION Test 01/25/17 05:48 01/25/17 08:59 01/25/17 13:04 01/25/17 16:56 White Blood Count 8.8 # Red Blood Count 2.06 L Hemoglobin 6.4 #*L Hematocrit 19.3 L Mean Corpuscular Volume 93.7 Mean Corpuscular Hemoglobin 31.1 Mean Corpuscular Hemoglobin Concent 33.2 Red Cell Distribution Width 13.8 Platelet Count 148 Mean Platelet Volume 10.6 H Neutrophils % 83.0 H Lymphocytes % 13.0 L Monocytes % 4.0 Neutrophils # 7.3 Lymphocytes # 1.1 Monocytes # 0.4 Prothrombin Time 16.4 H Prothrombin Time Ratio 1.3 INR International Normalized Ratio 1.31 Activated Partial Thromboplast Time 42.8 H Sodium Level 142 Potassium Level 3.5 Chloride Level 103 Carbon Dioxide Level 30 Anion Gap 13 Blood Urea Nitrogen 42 #H Creatinine 1.87 H Glucose Level 97 Calcium Level 8.2 L Bedside Glucose 111 116 Stool Occult Blood NEGATIVE Test 01/25/17 17:57 Bedside Glucose 119 Medications Medications Current Medications Ondansetron HCl (Zofran Inj) 4 mg Q6H PRN IV NAUSEA AND/OR VOMITING Last administered on 12/13/16 01:13; Admin Dose 4 MG; Start 12/02/16 at 22:30 Miscellaneous Information 1 ea NOTE XX ; Start 12/02/16 at 23:00 Glucose (Glutose) 15 gm Q15M PRN PO DECREASED GLUCOSE; Start 12/02/16 at 23:00 Glucose (Glutose) 22.5 gm Q15M PRN PO DECREASED GLUCOSE; Start 12/02/16 at 23: 00 Dextrose (D50w Syringe) 25 ml Q15M PRN IV DECREASED GLUCOSE Last administered on 12/10/16 05:52; Admin Dose 25 ML; Start 12/02/16 at 23:00 Dextrose (D50w Syringe) 50 ml Q15M PRN IV DECREASED GLUCOSE Last administered on 01/23/17 04:58; Admin Dose 50 ML; Start 12/02/16 at 23:00 Glucagon (Glucagen) 1 mg Q15M PRN IM DECREASED GLUCOSE; Start 12/02/16 at 23:00 Glucose (Glutose) 15 gm Q15M PRN BUCCAL DECREASED GLUCOSE; Start 12/02/16 at 23 :00 Gabapentin (Neurontin) 800 mg TID PO Last administered on 12/08/16 20:33; Admin Dose 800 MG; Start 12/03/16 at 09:00; Status Future Hold Benazepril HCl (Lotensin) 10 mg DAILY PO Last administered on 12/07/16 08:26; Admin Dose 10 MG; Start 12/04/16 at 09:00; Status Future Hold Acetaminophen (Tylenol Supp) 650 mg Q6H PRN [place] ELEVATED TEMPERATURE Last administered on 01/13/17 20:32; Admin Dose 650 MG; Start 12/09/16 at 17:00 Hydralazine HCl (Apresoline) 10 mg Q6H PRN IV SBP>150mm hg Last administered on 12/19/16 08:50; Admin Dose 10 MG; Start 12/11/16 at 10:30 Morphine Sulfate (morphine) 2 mg Q2H PRN IV PAIN LEVEL 4-7; Start 12/13/16 at 10 :00 Collagenase (Santyl) 1 applic DAILY TOP Last administered on 01/25/17 09:17; Admin Dose 1 APPLIC; Start 01/04/17 at 09:00 Metoprolol Tartrate (Lopressor) 5 mg Q4 PRN IV FOR H.R>110; Start 01/12/17 at 17:30 Acetaminophen (Tylenol Liquid) 650 mg Q6H PRN NGT PAIN AND OR ELEVATED TEMP; Start 01/13/17 at 23:30 Apixaban (Eliquis) 2.5 mg BID NGT Last administered on 01/22/17 20:32; Admin Dose 2.5 MG; Start 01/13/17 at 21:00; Status Future hold Acetaminophen/ Hydrocodone Bitart ([place] (5/325)) 1 tab Q6H PRN NGT PAIN LEVEL 4-7; Start 01/13/17 at 23:30 Levetiracetam (Keppra Liquid) 1,000 mg DAILY NGT Last administered on 08:52; Admin Dose 1,000 MG; Start 01/14/17 at 09:00 Meclizine HCl (Antivert) 25 mg TID PRN NGT dizziness; Start 01/13/17 at 20:00 Zolpidem Tartrate (Ambien) 5 mg HS PRN NGT INSOMNIA; Start 01/13/17 at 20:00 Aspirin (Aspirin) 81 mg DAILY NGT Last administered on 01/25/17 08:52; Admin Dose 81 MG; Start 01/14/17 at 09:00 Docusate Sodium (Colace Liquid Cup) 100 mg BID NGT Last administered on 20:51; Admin Dose 100 MG; Start 01/13/17 at 21:00 Pantoprazole (Protonix Iv) 40 mg DAILY@06 IV Last administered on 01/25/17 05: 47; Admin Dose 40 MG; Start 01/14/17 at 06:00 Amiodarone HCl (Cordarone) 200 mg Q8 NGT Last administered on 01/24/17 22:45; Admin Dose 200 MG; Start 01/17/17 at 14:00 Insulin Glargine 40 unit 40 unit DAILY@20 SC Last administered on 01/24/17 20: 57; Admin Dose 40 UNIT; Start 01/17/17 at 20:00 Cefepime HCl 50 ml @ 100 mls/hr Q24H IVPB Last administered on 01/25/17 17:58 ; Admin Dose 100 MLS/HR; Start 01/20/17 at 17:00 Norepinephrine/ Dextrose (Levophed/D5W) 500 ml @ 1.87 mls/hr TITRATE IV ; Start 01/23/17 at 14:30 Metoprolol Tartrate (Lopressor) 12.5 mg BID NGT Last administered on 01/25/17 08:52; Admin Dose 12.5 MG; Start 01/24/17 at 21:00 Insulin Aspart (Novolog Insulin Pen) NOVOLOG *MODERATE* ALGORI... Q4 SC ; Start 01/25/17 at 13:00 TASHIA MCGARRY MD Jan 25, 2017 20:41
[2017-01-25] MEDS: INSULIN GLARGINE [LANtus] 3 ML PEN SC SCH (20:49)
[2017-01-26] VITALS (42 sets, daily range): BP systolic 95–150; BP diastolic 47–71; PULSE 58–81; RESP 0–18
[2017-01-26] MEDS: INSULIN ASPART [NOVOLOG] 3 ML PEN SC SCH ×6 (01:59→20:41)
[2017-01-26] MEDS: ALBUTEROL 18 GM INHALER INH SCH ×4 (02:08→19:26)
[2017-01-26 04:55] LABS: ADD SCAN DIFF NO
[2017-01-26 05:09] LABS: BASOPHILS % 0.1 % (0.0-2.0); EOSINOPHILS # 0.1 10^3/ul (0.0-0.5); EOSINOPHILS % 0.6 % (0.0-7.0); HEMOGLOBIN 8.7 g/dl (14.0-18.0); LYMPHOCYTES # 1.1 10^3/ul (0.8-2.9); LYMPHOCYTES % 10.2 % (15.0-51.0); MEAN CORPUSCULAR HEMOGLOBIN 30.2 pg (29.0-33.0); MEAN CORPUSCULAR HGB CONC 33.5 g/dl (32.0-37.0); MEAN CORPUSCULAR VOLUME 90.3 fl (82.0-101.0); MEAN PLATELET VOLUME 10.6 fl (7.4-10.4); MONOCYTE # 0.7 10^3/ul (0.3-0.9); MONOCYTES % 7.1 % (0.0-11.0); NEUTROPHIL # 8.4 10^3/ul (1.6-7.5); NEUTROPHILS % 81.1 % (39.0-77.0); PLATELET COUNT 163 10^3/UL (140-415); RED BLOOD COUNT 2.88 10^6/ul (4.70-6.10); RED CELL DISTRIBUTION WIDTH 15.2 % (11.5-14.5); WHITE BLOOD COUNT 10.3 10^3/ul (4.8-10.8)
[2017-01-26 05:12] LABS: INR 1.16; PROTIME 14.9 Sec (12.2-14.2); PT RATIO 1.2
[2017-01-26 05:13] LABS: PARTIAL THROMBOPLASTIN TIME 36.6 Sec (25.0-35.0)
[2017-01-26] MEDS: DEXTROSE 50% 50 ML SYRINGE IV PRN (05:21)
[2017-01-26] MEDS: AMIODARONE 200 MG TAB NGT SCH ×3 (05:22→22:48)
[2017-01-26] MEDS: PANTOPRAZOLE 40 MG INJ IV SCH (05:22)
[2017-01-26 05:53] LABS: ALBUMIN/GLOBULIN RATIO 1.33; BILIRUBIN,INDIRECT 1.2 mg/dl (0-1.1); BILIRUBIN,TOTAL 1.2 mg/dl (0.2-1.3); CALCIUM 8.5 mg/dl (8.4-10.2); CREATININE 1.89 mg/dl (0.61-1.24); POTASSIUM 3.5 mmol/L (3.5-5.1)
--- NOTE | 2017-01-26 06:49 | PN ---
DATE: 01/25/2017 SUBJECTIVE: The patient is unable to give any history. He is lethargic. The patient underwent tra cheostomy. He showed evidence of bleeding from the tracheostomy. Hemoglobin dropped to 6.4, packed cells were transfused, 2 units of fresh frozen plasma were ordered. OBJECTIVE: Examination of the abdomen is unremarkable. PLAN: At this time, recommend to correct the coagulopathy and then we will proceed with percutaneou s endoscopic gastrostomy tube placement. Dictated By: ABEBA THORPE MD NC/NTS Conf#: [id number] DID#: [id number] CC: ABEBA THORPE MD;*EndCC*
--- NOTE | 2017-01-26 08:33 | CONS ---
Date/Time of Note Date/Time of Note DATE: 01/26/17 TIME: 08:29 Consult Date/Type/Reason Admit Date/Time Dec 02, 2016 at 21:01 Initial Consult Date 12/08/16 Type of Consultation: INFECTIOUS DISEASE Ordering Provider: VIET PARKER MD Subjective non-responsive and unable Objective Vital Signs Date Time Temp Pulse Resp B/P Pulse Ox O2 Delivery O2 Flow Rate FiO2 01/26/17 07:00 63 16 147/56 99 Mechanical Ventilator 01/26/17 05:50 30 01/26/17 04:00 98.8 Intake and Output 01/25/17 01/25/17 01/26/17 15:00 23:00 07:00 Intake Total 776 ml 439 ml 660 ml Output Total 0 ml 400 ml 200 ml Balance 776 ml 39 ml 460 ml Exam Constitutional: asleep, tracheostomy and ventilator supported Head: atraumatic, normocephalic ENMT: tracheostomy in place, NGT left nares - tube feeding infusing Respiratory: clear to auscultation, ventilator supported Cardiovascular: regular rate and rhythm Gastrointestinal: soft, non-tender and non-distended Musculoskeletal: normal extremities to inspection Extremities: no edema, saline lock left forearm & right hand with no e/o infection Neurological: nonresponsive Skin: dressing left foot, clean and dry, no odor or visible drainage, decubitus ulcer at the coccyx area (please see nurses notes for complete documentation) Results/Medications Result Diagram: 01/26/17 0400 01/26/17 0400 Results 24 hrs Laboratory Tests Test 01/25/17 08:59 01/25/17 13:04 01/25/17 16:56 01/25/17 17:57 Bedside Glucose 111 116 119 Stool Occult Blood NEGATIVE Test 01/25/17 20:15 01/25/17 20:44 01/26/17 02:00 01/26/17 04:00 White Blood Count 9.5 10.3 Red Blood Count 2.43 L 2.88 L Hemoglobin 7.5 L 8.7 L Hematocrit 22.0 L 26.0 L Mean Corpuscular Volume 90.5 90.3 Mean Corpuscular Hemoglobin 30.9 30.2 Mean Corpuscular Hemoglobin Concent 34.1 33.5 Red Cell Distribution Width 14.9 H 15.2 H Platelet Count 134 L 163 # Mean Platelet Volume 10.1 10.6 H Neutrophils % 81.0 H 81.1 H Lymphocytes % 10.2 L 10.2 L Monocytes % 7.6 7.1 Eosinophils % 0.3 0.6 Basophils % 0.1 0.1 Nucleated Red Blood Cells % 0.0 0.0 Neutrophils # 7.7 H 8.4 H Lymphocytes # 1.0 1.1 Monocytes # 0.7 0.7 Eosinophils # 0.0 0.1 Basophils # 0.0 0.0 Nucleated Red Blood Cells # 0.0 0.0 Bedside Glucose 152 85 Prothrombin Time 14.9 H Prothrombin Time Ratio 1.2 INR International Normalized Ratio 1.16 Activated Partial Thromboplast Time 36.6 H Mix PTT Normal Plasma Immediate Sodium Level 146 H Potassium Level 3.5 Chloride Level 105 Carbon Dioxide Level 30 Anion Gap 15 Blood Urea Nitrogen 45 H Creatinine 1.89 H Glucose Level 62 #L Calcium Level 8.5 Total Bilirubin 1.2 Direct Bilirubin 0.00 Indirect Bilirubin 1.2 H Aspartate Amino Transf (AST/SGOT) 37 Alanine Aminotransferase (ALT/SGPT) 30 Alkaline Phosphatase 82 Total Protein 7.0 Albumin 4.0 Globulin 3.00 Albumin/Globulin Ratio 1.33 Test 01/26/17 05:16 01/26/17 05:41 01/26/17 05:45 01/26/17 06:33 Bedside Glucose 61 L 137 101 Lab Scanned Report BLOOD TRANSFUSION Medications Current Medications Ondansetron HCl (Zofran Inj) 4 mg Q6H PRN IV NAUSEA AND/OR VOMITING Last administered on 12/13/16 01:13; Admin Dose 4 MG; Start 12/02/16 at 22:30 Miscellaneous Information 1 ea NOTE XX ; Start 12/02/16 at 23:00 Glucose (Glutose) 15 gm Q15M PRN PO DECREASED GLUCOSE; Start 12/02/16 at 23:00 Glucose (Glutose) 22.5 gm Q15M PRN PO DECREASED GLUCOSE; Start 12/02/16 at 23: 00 Dextrose (D50w Syringe) 25 ml Q15M PRN IV DECREASED GLUCOSE Last administered on 01/26/17 05:21; Admin Dose 25 ML; Start 12/02/16 at 23:00 Dextrose (D50w Syringe) 50 ml Q15M PRN IV DECREASED GLUCOSE Last administered on 01/23/17 04:58; Admin Dose 50 ML; Start 12/02/16 at 23:00 Glucagon (Glucagen) 1 mg Q15M PRN IM DECREASED GLUCOSE; Start 12/02/16 at 23:00 Glucose (Glutose) 15 gm Q15M PRN BUCCAL DECREASED GLUCOSE; Start 12/02/16 at 23 :00 Gabapentin (Neurontin) 800 mg TID PO Last administered on 12/08/16 20:33; Admin Dose 800 MG; Start 12/03/16 at 09:00; Status Future Hold Benazepril HCl (Lotensin) 10 mg DAILY PO Last administered on 12/07/16 08:26; Admin Dose 10 MG; Start 12/04/16 at 09:00; Status Future Hold Acetaminophen (Tylenol Supp) 650 mg Q6H PRN [place] ELEVATED TEMPERATURE Last administered on 01/13/17 20:32; Admin Dose 650 MG; Start 12/09/16 at 17:00 Hydralazine HCl (Apresoline) 10 mg Q6H PRN IV SBP>150mm hg Last administered on 12/19/16 08:50; Admin Dose 10 MG; Start 12/11/16 at 10:30 Morphine Sulfate (morphine) 2 mg Q2H PRN IV PAIN LEVEL 4-7; Start 12/13/16 at 10 :00 Collagenase (Santyl) 1 applic DAILY TOP Last administered on 01/25/17 09:17; Admin Dose 1 APPLIC; Start 01/04/17 at 09:00 Metoprolol Tartrate (Lopressor) 5 mg Q4 PRN IV FOR H.R>110; Start 01/12/17 at 17:30 Acetaminophen (Tylenol Liquid) 650 mg Q6H PRN NGT PAIN AND OR ELEVATED TEMP; Start 01/13/17 at 23:30 Apixaban (Eliquis) 2.5 mg BID NGT Last administered on 01/22/17 20:32; Admin Dose 2.5 MG; Start 01/13/17 at 21:00; Status Future hold Acetaminophen/ Hydrocodone Bitart ([place] (5/325)) 1 tab Q6H PRN NGT PAIN LEVEL 4-7; Start 01/13/17 at 23:30 Levetiracetam (Keppra Liquid) 1,000 mg DAILY NGT Last administered on 08:52; Admin Dose 1,000 MG; Start 01/14/17 at 09:00 Meclizine HCl (Antivert) 25 mg TID PRN NGT dizziness; Start 01/13/17 at 20:00 Zolpidem Tartrate (Ambien) 5 mg HS PRN NGT INSOMNIA; Start 01/13/17 at 20:00 Aspirin (Aspirin) 81 mg DAILY NGT Last administered on 01/25/17 08:52; Admin Dose 81 MG; Start 01/14/17 at 09:00 Docusate Sodium (Colace Liquid Cup) 100 mg BID NGT Last administered on 20:47; Admin Dose 100 MG; Start 01/13/17 at 21:00 Pantoprazole (Protonix Iv) 40 mg DAILY@06 IV Last administered on 01/26/17 05: 22; Admin Dose 40 MG; Start 01/14/17 at 06:00 Amiodarone HCl 200 mg 200 mg Q8 NGT Last administered on 01/26/17 05:22; Admin Dose 200 MG; Start 01/17/17 at 14:00 Cefepime HCl 50 ml @ 100 mls/hr Q24H IVPB Last administered on 01/25/17 17:58 ; Admin Dose 100 MLS/HR; Start 01/20/17 at 17:00 Norepinephrine/ Dextrose (Levophed/D5W) 500 ml @ 1.87 mls/hr TITRATE IV ; Start 01/23/17 at 14:30 Metoprolol Tartrate (Lopressor) 12.5 mg BID NGT Last administered on 01/25/17 20:48; Admin Dose 12.5 MG; Start 01/24/17 at 21:00 Insulin Aspart (Novolog Insulin Pen) NOVOLOG *MODERATE* ALGORI... Q4 SC Last administered on 01/25/17 20:51; Admin Dose 2 UNIT; Start 01/25/17 at 13:00 Insulin Glargine (Lantus) 30 unit DAILY@20 SC ; Start 01/26/17 at 20:00 Assessment/Plan Chief Complaint/Hosp Course - recurrent cardiopulmonary arrest on 12/09/2016 and on 01/08/2017 - sepsis due to possible tracheobronchitis/pneumonia - possible tracheobronchitis/pneumonia due to pseudomonas - s/p recurrent sepsis - 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 Blood cultures from HD catheter on 12/13/2016 are negative to date. 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 MRI on 12/06/2016 and bone scan on showed 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 and left fourth proximal phalanx. superficial swab grew inna only. At present, no e/o persistent infection - recurrent pleural effusion - s/p right pleural effusion s/p thoracentesis with .9L removed on 12/16/2016; ( Note: there is no pleural fluid cx since orders were placed after Right thoracentesis, and Left thoracentesis was not performed on 12/17/16 d/t insufficient fluid) - funguria - ARANZA on CKD that progressed to ESRD and started on HD from 12/09/2016 - oliguria - improved - A fib -> PAF - small nonreversible perfusion abnormality in the inferoapical and inferior carver; EF 36% per Lexiscan 12/24/2016 - severe , EF 40-45% per TTE 12/17/16 - DM - Hgb A1c 8.7% - HTN associated with DM - recurrent episodes of respiratory failure - acute encephalopathy with anoxic brain injury - stage 3 decubitus ulcer of coccyx without evidence of infection - urinary retention - improved - VDRF s/p tracheostomy 01/23/2017 NOTE: Pt completed 6 weeks (12/03/2016-01/15/2017) of antibiotics to treat 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 and left fourth proximal phalanx ; s/p pip/tazo 12/03/16-01/08/17; linezolid 01/08/17-01/20/17; caspofungin 01/12/17-01/21/17. recommendations: - continue renally dosed cefepime for pseudomonas (01/15/2017-) to finish 14 days total - continue local wound care of L 1st toe and coccyx Care and management discussed with ALINA Frankel and DR. Wilson Problems: Additional Assessment/Plan PEG placement on hold pending coagulopathy correction per DR. Smith's note dated 01/25/17 PAULA MUHAMMAD Jan 26, 2017 08:33
[2017-01-26] MEDS: ASPIRIN 81 MG TAB NGT SCH (09:00)
[2017-01-26] MEDS: COLLAGENASE 30 GM TUBE TOP SCH (09:00)
[2017-01-26] MEDS: APIXABAN 5 MG TABLET NGT SCH ×2 (09:00→21:00)
[2017-01-26] MEDS: METOPROLOL 25 MG TAB NGT SCH ×2 (09:00→20:38)
[2017-01-26] MEDS: DOCUSATE SODIUM 10 MG/ML (10ML CUP) NGT SCH ×2 (09:00→20:37)
[2017-01-26] MEDS: LEVETIRACETAM (100 MG/ML) 5ML CUP NGT SCH (09:26)
--- NOTE | 2017-01-26 10:14 | CONS ---
Date/Time of Note Date/Time of Note DATE: 01/26/17 TIME: 10:12 Assessment/Plan Assessment/Plan Additional Assessment/Plan Ventilator setting; AC of 16, tidal volume 500, PEEP of 5, 30% FiO2. Assessment recommendations; 1. Patient admitted for lower extremity cellulitis then developed renal failure requiring hemodialysis. 2. Recurrent respiratory failure, most recent episode from flash pulmonary edema due to underlying cardiomyopathy, status post CPR with severe anoxic brain injury. 3. Status post tracheostomy. 4. Patient on hemodialysis. Continue current supportive care. Prognosis is poor. Consultation Date/Type/Reason Admit Date/Time Dec 02, 2016 at 21:01 Initial Consult Date 12/03/16 Type of Consultation: Pulmonary/critical care Referring Provider: VIET PARKER MD 24 HR Interval Summary Free Text/Dictation Patient condition remains unchanged. Remains unresponsive. Has remained hemodynamically stable. No further tracheal bleed noted. General exam; elderly male, on ventilator via tracheostomy currently in no distress. Exam/Review of Systems Vital Signs Vitals Vital Signs Date Time Temp Pulse Resp B/P Pulse Ox O2 Delivery O2 Flow Rate FiO2 01/26/17 07:00 63 16 147/56 99 Mechanical Ventilator 01/26/17 05:50 30 01/26/17 04:00 98.8 Intake and Output 01/25/17 01/25/17 01/26/17 15:00 23:00 07:00 Intake Total 776 ml 439 ml 660 ml Output Total 0 ml 400 ml 200 ml Balance 776 ml 39 ml 460 ml Exam HEENT examination; supple neck, no JVD. No lymphadenopathy. Midline trachea. No thyromegaly. Patient is edentulous. Tracheostomy in place with clean insertion site. Chest examination; clear to ulceration. S1-S2 audible, no murmurs. Regular rhythm. Abdomen examination; soft, no organomegaly. Bowel sounds audible. Extremity examination; no peripheral edema. WARPER CREELER examination; patient remains unresponsive. Results Result Diagram: 01/26/17 0400 01/26/17 0400 Results 24 hrs Laboratory Tests Test 01/25/17 13:04 01/25/17 16:56 01/25/17 17:57 01/25/17 20:15 Bedside Glucose 116 119 Stool Occult Blood NEGATIVE White Blood Count 9.5 Red Blood Count 2.43 L Hemoglobin 7.5 L Hematocrit 22.0 L Mean Corpuscular Volume 90.5 Mean Corpuscular Hemoglobin 30.9 Mean Corpuscular Hemoglobin Concent 34.1 Red Cell Distribution Width 14.9 H Platelet Count 134 L Mean Platelet Volume 10.1 Neutrophils % 81.0 H Lymphocytes % 10.2 L Monocytes % 7.6 Eosinophils % 0.3 Basophils % 0.1 Nucleated Red Blood Cells % 0.0 Neutrophils # 7.7 H Lymphocytes # 1.0 Monocytes # 0.7 Eosinophils # 0.0 Basophils # 0.0 Nucleated Red Blood Cells # 0.0 Test 01/25/17 20:44 01/26/17 02:00 01/26/17 04:00 01/26/17 05:16 Bedside Glucose 152 85 61 L White Blood Count 10.3 Red Blood Count 2.88 L Hemoglobin 8.7 L Hematocrit 26.0 L Mean Corpuscular Volume 90.3 Mean Corpuscular Hemoglobin 30.2 Mean Corpuscular Hemoglobin Concent 33.5 Red Cell Distribution Width 15.2 H Platelet Count 163 # Mean Platelet Volume 10.6 H Neutrophils % 81.1 H Lymphocytes % 10.2 L Monocytes % 7.1 Eosinophils % 0.6 Basophils % 0.1 Nucleated Red Blood Cells % 0.0 Neutrophils # 8.4 H Lymphocytes # 1.1 Monocytes # 0.7 Eosinophils # 0.1 Basophils # 0.0 Nucleated Red Blood Cells # 0.0 Prothrombin Time 14.9 H Prothrombin Time Ratio 1.2 INR International Normalized Ratio 1.16 Activated Partial Thromboplast Time 36.6 H Mix PTT Normal Plasma Immediate Sodium Level 146 H Potassium Level 3.5 Chloride Level 105 Carbon Dioxide Level 30 Anion Gap 15 Blood Urea Nitrogen 45 H Creatinine 1.89 H Glucose Level 62 #L Calcium Level 8.5 Total Bilirubin 1.2 Direct Bilirubin 0.00 Indirect Bilirubin 1.2 H Aspartate Amino Transf (AST/SGOT) 37 Alanine Aminotransferase (ALT/SGPT) 30 Alkaline Phosphatase 82 Total Protein 7.0 Albumin 4.0 Globulin 3.00 Albumin/Globulin Ratio 1.33 Test 01/26/17 05:41 01/26/17 05:45 01/26/17 06:33 01/26/17 09:24 Bedside Glucose 137 101 96 Lab Scanned Report BLOOD TRANSFUSION Medications Medications Current Medications Ondansetron HCl (Zofran Inj) 4 mg Q6H PRN IV NAUSEA AND/OR VOMITING Last administered on 12/13/16 01:13; Admin Dose 4 MG; Start 12/02/16 at 22:30 Miscellaneous Information 1 ea NOTE XX ; Start 12/02/16 at 23:00 Glucose (Glutose) 15 gm Q15M PRN PO DECREASED GLUCOSE; Start 12/02/16 at 23:00 Glucose (Glutose) 22.5 gm Q15M PRN PO DECREASED GLUCOSE; Start 12/02/16 at 23: 00 Dextrose (D50w Syringe) 25 ml Q15M PRN IV DECREASED GLUCOSE Last administered on 01/26/17 05:21; Admin Dose 25 ML; Start 12/02/16 at 23:00 Dextrose (D50w Syringe) 50 ml Q15M PRN IV DECREASED GLUCOSE Last administered on 01/23/17 04:58; Admin Dose 50 ML; Start 12/02/16 at 23:00 Glucagon (Glucagen) 1 mg Q15M PRN IM DECREASED GLUCOSE; Start 12/02/16 at 23:00 Glucose (Glutose) 15 gm Q15M PRN BUCCAL DECREASED GLUCOSE; Start 12/02/16 at 23 :00 Gabapentin (Neurontin) 800 mg TID PO Last administered on 12/08/16 20:33; Admin Dose 800 MG; Start 12/03/16 at 09:00; Status Future Hold Benazepril HCl (Lotensin) 10 mg DAILY PO Last administered on 12/07/16 08:26; Admin Dose 10 MG; Start 12/04/16 at 09:00; Status Future Hold Acetaminophen (Tylenol Supp) 650 mg Q6H PRN [place] ELEVATED TEMPERATURE Last administered on 01/13/17 20:32; Admin Dose 650 MG; Start 12/09/16 at 17:00 Hydralazine HCl (Apresoline) 10 mg Q6H PRN IV SBP>150mm hg Last administered on 12/19/16 08:50; Admin Dose 10 MG; Start 12/11/16 at 10:30 Morphine Sulfate (morphine) 2 mg Q2H PRN IV PAIN LEVEL 4-7; Start 12/13/16 at 10 :00 Collagenase (Santyl) 1 applic DAILY TOP Last administered on 01/25/17 09:17; Admin Dose 1 APPLIC; Start 01/04/17 at 09:00 Metoprolol Tartrate (Lopressor) 5 mg Q4 PRN IV FOR H.R>110; Start 01/12/17 at 17:30 Acetaminophen (Tylenol Liquid) 650 mg Q6H PRN NGT PAIN AND OR ELEVATED TEMP; Start 01/13/17 at 23:30 Apixaban (Eliquis) 2.5 mg BID NGT Last administered on 01/22/17 20:32; Admin Dose 2.5 MG; Start 01/13/17 at 21:00; Status Future hold Acetaminophen/ Hydrocodone Bitart ([place] (5/325)) 1 tab Q6H PRN NGT PAIN LEVEL 4-7; Start 01/13/17 at 23:30 Levetiracetam (Keppra Liquid) 1,000 mg DAILY NGT Last administered on 09:26; Admin Dose 1,000 MG; Start 01/14/17 at 09:00 Meclizine HCl (Antivert) 25 mg TID PRN NGT dizziness; Start 01/13/17 at 20:00 Zolpidem Tartrate (Ambien) 5 mg HS PRN NGT INSOMNIA; Start 01/13/17 at 20:00 Aspirin (Aspirin) 81 mg DAILY NGT Last administered on 01/25/17 08:52; Admin Dose 81 MG; Start 01/14/17 at 09:00 Docusate Sodium (Colace Liquid Cup) 100 mg BID NGT Last administered on 20:47; Admin Dose 100 MG; Start 01/13/17 at 21:00 Pantoprazole (Protonix Iv) 40 mg DAILY@06 IV Last administered on 01/26/17 05: 22; Admin Dose 40 MG; Start 01/14/17 at 06:00 Amiodarone HCl 200 mg 200 mg Q8 NGT Last administered on 01/26/17 05:22; Admin Dose 200 MG; Start 01/17/17 at 14:00 Cefepime HCl 50 ml @ 100 mls/hr Q24H IVPB Last administered on 01/25/17 17:58 ; Admin Dose 100 MLS/HR; Start 01/20/17 at 17:00 Norepinephrine/ Dextrose (Levophed/D5W) 500 ml @ 1.87 mls/hr TITRATE IV ; Start 01/23/17 at 14:30 Metoprolol Tartrate (Lopressor) 12.5 mg BID NGT Last administered on 01/25/17 20:48; Admin Dose 12.5 MG; Start 01/24/17 at 21:00 Insulin Aspart (Novolog Insulin Pen) NOVOLOG *MODERATE* ALGORI... Q4 SC Last administered on 01/25/17 20:51; Admin Dose 2 UNIT; Start 01/25/17 at 13:00 Insulin Glargine (Lantus) 30 unit DAILY@20 SC ; Start 01/26/17 at 20:00 IKE MULLER Jan 26, 2017 10:14
[2017-01-26] MEDS ORDERED: SOD CHLORIDE 0.9% 250 ML IV* ONE (11:38)
--- NOTE | 2017-01-26 12:04 | PN ---
DATE: 01/26/2017 SUBJECTIVE: Followup on anoxic encephalopathy, anemia, status post cardiopulmonary arrest, end-stag e renal disease, diabetes. The patient is status post tracheostomy, on 01/23/2017, continues to ooz e blood from tracheostomy site. Patient's G-tube placement procedure was held. Stable vital signs. No fever, nausea, vomiting reported per RN. OBJECTIVE VITAL SIGNS: Temperature 98.8, pulse is 63, blood pressure 147/56, respiratory rate 16, oxygen satu ration 99% on 30% FIO2. GENERAL: Well-developed male currently on ventilatory support, nonverbal, unresponsive. HEENT: Head is atraumatic. ENT: NG tube. NECK: Tracheostomy at the base of the neck. HEART: Normal S1, S2. No murmurs. GASTROINTESTINAL: Soft, nondistended, nontender, bowel sounds present. EXTREMITIES: Pulses present. NEUROLOGIC: The patient is unresponsive. Does not move any extremities, does not open eyes. Does not track. LABORATORY DATA: Today, CBC: White blood cells 10.3, hemoglobin 8.7, hematocrit 26.0, platelets 16 3. Chemistry: Sodium is 146, potassium 3.5, chloride 105, carbon dioxide 30, anion gap 15, BUN is 45, creatinine 1.89, glucose 62. PT is 14.9, INR is 1.16, aPTT 36.6. ASSESSMENT AND PLAN: 1. Anemia of acute blood loss. Patient received 2 units of packed red blood cells. Will continue to monitor hemoglobin and hematocrit q.8h. since patient continues to have a small amount of bleedin g from the tracheostomy site. 2. Elevated PT and PTT, patient previously was on Eliquis, paroxysmal atrial fibrillation, which wa s stopped prior to procedure. Will transfuse FFP p.r.n. Continue to monitor. 3. Status post tracheostomy by Dr. Nichols on 01/23/2017, continue to follow up ENT recommendations. 4. Anoxic encephalopathy. 5. Status post cardiopulmonary arrest on 12/09/2016 and 01/08/2017, continue ventilatory support, I [facility] care. 6. End-stage renal disease. Continue hemodialysis per nephrology. 7. Diabetes mellitus type 2. Continue Lantus and NovoLog with Accu-Cheks q.4h. 8. Tracheobronchitis versus early pneumonia with sputum culture positive for Pseudomonas. The carroll ent is currently on cefepime. Continue to follow up Infectious Disease recommendations. We will co mela Chu. Further recommendations based on clinical course. Plan of care discussed with Dr. Parker. Dictated By: [facility] REPRESENTATIVE for VIET PARKER MD SR/NTS Conf#: [id number] DID#: [id number]
--- NOTE | 2017-01-26 13:01 | CONS ---
Date/Time of Note Date/Time of Note DATE: 01/26/17 TIME: 12:56 Assessment/Plan Assessment/Plan Chief Complaint/Hosp Course IMPRESSION: 1. Atrial fibrillation-Having episodes of PAF with reasonable rate control 2. Hypotension-borderline but remains off pressors 3. Abnormal electrocardiogram with inferolateral T-wave inversions. 4. Respiratory failure-s/p trach placement 5. Nonhealing toe ulceration-vascular following 6. Peripheral arterial disease by arterial ultrasound of the lower extremities this admission. 7. Diabetes mellitus. 8. Fevers. 9. Positive troponin-downtrended 10.Bradycardia-improved/stable 11.-severe by echo 12.Cardiomyopathy-EF 40-45% by echo/36% by stress with no ischemia but positive scar. EF <30% by echo post arrest 14.Encephalopathy-anoxic 15. s/p cardiopulmonary arrest 01/08 Recc: -Tele -serial ecg -HD for volume removal as tolerated -Continue baby asa as tolerated only -eliquis still held in antivipation of possible G tube placement and due to trach site bleeding -Continue PO amio in attempt to maintain SR -Continue BB as tolerated only following HR/BP closely -Will hold on afterload reduction given severe and thus fixed afterload at valve orifice Problems: Consultation Date/Type/Reason Admit Date/Time Dec 02, 2016 at 21:01 Initial Consult Date 12/03/16 Type of Consultation: Cardiology Reason for Consultation CHF/AVR/cardiomyopathy Referring Provider: VIET PARKER MD Exam/Review of Systems Vital Signs Vitals Vital Signs Date Time Temp Pulse Resp B/P Pulse Ox O2 Delivery O2 Flow Rate FiO2 01/26/17 12:45 75 01/26/17 10:50 18 01/26/17 07:00 147/56 99 Mechanical Ventilator 01/26/17 05:50 30 01/26/17 04:00 98.8 Intake and Output 01/25/17 01/25/17 01/26/17 15:00 23:00 07:00 Intake Total 776 ml 439 ml 660 ml Output Total 0 ml 400 ml 200 ml Balance 776 ml 39 ml 460 ml Exam Review of Systems: CONSTITUTIONAL: No fevers, chills. PULMONARY: s/p trach CARDIOVASCULAR: No obvious chest pain/palpitations GASTROINTESTINAL: No nausea/vomiting. GENITOURINARY: No hematuria/dysuria. MUSCULOSKELETAL: No obvious myagias/arthalgias. PSYCHIATRIC: No documented depression. NEUROLOGIC: Encephalopathy Constitutional: other (encephalopathic) Head: normocephalic ENMT: other (tracehd) Neck: jvd (9cm water) Respiratory: diminished breath sounds (at bases/B) Cardiovascular: regular rate and rhythm Gastrointestinal: non-tender, soft Musculoskeletal: muscle tone (normal) Extremities: other (lethargic/encephalopathic) Results Result Diagram: 01/26/17 0400 01/26/17 0400 Results 24 hrs Laboratory Tests Test 01/25/17 13:04 01/25/17 16:56 01/25/17 17:57 01/25/17 20:15 Bedside Glucose 116 119 Stool Occult Blood NEGATIVE White Blood Count 9.5 Red Blood Count 2.43 L Hemoglobin 7.5 L Hematocrit 22.0 L Mean Corpuscular Volume 90.5 Mean Corpuscular Hemoglobin 30.9 Mean Corpuscular Hemoglobin Concent 34.1 Red Cell Distribution Width 14.9 H Platelet Count 134 L Mean Platelet Volume 10.1 Neutrophils % 81.0 H Lymphocytes % 10.2 L Monocytes % 7.6 Eosinophils % 0.3 Basophils % 0.1 Nucleated Red Blood Cells % 0.0 Neutrophils # 7.7 H Lymphocytes # 1.0 Monocytes # 0.7 Eosinophils # 0.0 Basophils # 0.0 Nucleated Red Blood Cells # 0.0 Test 01/25/17 20:44 01/26/17 02:00 01/26/17 04:00 01/26/17 05:16 Bedside Glucose 152 85 61 L White Blood Count 10.3 Red Blood Count 2.88 L Hemoglobin 8.7 L Hematocrit 26.0 L Mean Corpuscular Volume 90.3 Mean Corpuscular Hemoglobin 30.2 Mean Corpuscular Hemoglobin Concent 33.5 Red Cell Distribution Width 15.2 H Platelet Count 163 # Mean Platelet Volume 10.6 H Neutrophils % 81.1 H Lymphocytes % 10.2 L Monocytes % 7.1 Eosinophils % 0.6 Basophils % 0.1 Nucleated Red Blood Cells % 0.0 Neutrophils # 8.4 H Lymphocytes # 1.1 Monocytes # 0.7 Eosinophils # 0.1 Basophils # 0.0 Nucleated Red Blood Cells # 0.0 Prothrombin Time 14.9 H Prothrombin Time Ratio 1.2 INR International Normalized Ratio 1.16 Activated Partial Thromboplast Time 36.6 H Mix PTT Normal Plasma Immediate Sodium Level 146 H Potassium Level 3.5 Chloride Level 105 Carbon Dioxide Level 30 Anion Gap 15 Blood Urea Nitrogen 45 H Creatinine 1.89 H Glucose Level 62 #L Calcium Level 8.5 Total Bilirubin 1.2 Direct Bilirubin 0.00 Indirect Bilirubin 1.2 H Aspartate Amino Transf (AST/SGOT) 37 Alanine Aminotransferase (ALT/SGPT) 30 Alkaline Phosphatase 82 Total Protein 7.0 Albumin 4.0 Globulin 3.00 Albumin/Globulin Ratio 1.33 Test 01/26/17 05:41 01/26/17 05:45 01/26/17 06:33 01/26/17 09:24 Bedside Glucose 137 101 96 Lab Scanned Report BLOOD TRANSFUSION Medications Medications Current Medications Ondansetron HCl (Zofran Inj) 4 mg Q6H PRN IV NAUSEA AND/OR VOMITING Last administered on 12/13/16 01:13; Admin Dose 4 MG; Start 12/02/16 at 22:30 Miscellaneous Information 1 ea NOTE XX ; Start 12/02/16 at 23:00 Glucose (Glutose) 15 gm Q15M PRN PO DECREASED GLUCOSE; Start 12/02/16 at 23:00 Glucose (Glutose) 22.5 gm Q15M PRN PO DECREASED GLUCOSE; Start 12/02/16 at 23: 00 Dextrose (D50w Syringe) 25 ml Q15M PRN IV DECREASED GLUCOSE Last administered on 01/26/17 05:21; Admin Dose 25 ML; Start 12/02/16 at 23:00 Dextrose (D50w Syringe) 50 ml Q15M PRN IV DECREASED GLUCOSE Last administered on 01/23/17 04:58; Admin Dose 50 ML; Start 12/02/16 at 23:00 Glucagon (Glucagen) 1 mg Q15M PRN IM DECREASED GLUCOSE; Start 12/02/16 at 23:00 Glucose (Glutose) 15 gm Q15M PRN BUCCAL DECREASED GLUCOSE; Start 12/02/16 at 23 :00 Gabapentin (Neurontin) 800 mg TID PO Last administered on 12/08/16 20:33; Admin Dose 800 MG; Start 12/03/16 at 09:00; Status Future Hold Benazepril HCl (Lotensin) 10 mg DAILY PO Last administered on 12/07/16 08:26; Admin Dose 10 MG; Start 12/04/16 at 09:00; Status Future Hold Acetaminophen (Tylenol Supp) 650 mg Q6H PRN [place] ELEVATED TEMPERATURE Last administered on 01/13/17 20:32; Admin Dose 650 MG; Start 12/09/16 at 17:00 Hydralazine HCl (Apresoline) 10 mg Q6H PRN IV SBP>150mm hg Last administered on 12/19/16 08:50; Admin Dose 10 MG; Start 12/11/16 at 10:30 Morphine Sulfate (morphine) 2 mg Q2H PRN IV PAIN LEVEL 4-7; Start 12/13/16 at 10 :00 Collagenase (Santyl) 1 applic DAILY TOP Last administered on 01/25/17 09:17; Admin Dose 1 APPLIC; Start 01/04/17 at 09:00 Metoprolol Tartrate (Lopressor) 5 mg Q4 PRN IV FOR H.R>110; Start 01/12/17 at 17:30 Acetaminophen (Tylenol Liquid) 650 mg Q6H PRN NGT PAIN AND OR ELEVATED TEMP; Start 01/13/17 at 23:30 Apixaban (Eliquis) 2.5 mg BID NGT Last administered on 01/22/17 20:32; Admin Dose 2.5 MG; Start 01/13/17 at 21:00; Status Future hold Acetaminophen/ Hydrocodone Bitart ([place] (5/325)) 1 tab Q6H PRN NGT PAIN LEVEL 4-7; Start 01/13/17 at 23:30 Levetiracetam (Keppra Liquid) 1,000 mg DAILY NGT Last administered on 09:26; Admin Dose 1,000 MG; Start 01/14/17 at 09:00 Meclizine HCl (Antivert) 25 mg TID PRN NGT dizziness; Start 01/13/17 at 20:00 Zolpidem Tartrate (Ambien) 5 mg HS PRN NGT INSOMNIA; Start 01/13/17 at 20:00 Aspirin (Aspirin) 81 mg DAILY NGT Last administered on 01/25/17 08:52; Admin Dose 81 MG; Start 01/14/17 at 09:00 Docusate Sodium (Colace Liquid Cup) 100 mg BID NGT Last administered on 20:47; Admin Dose 100 MG; Start 01/13/17 at 21:00 Pantoprazole (Protonix Iv) 40 mg DAILY@06 IV Last administered on 01/26/17 05: 22; Admin Dose 40 MG; Start 01/14/17 at 06:00 Amiodarone HCl 200 mg 200 mg Q8 NGT Last administered on 01/26/17 05:22; Admin Dose 200 MG; Start 01/17/17 at 14:00 Cefepime HCl 50 ml @ 100 mls/hr Q24H IVPB Last administered on 01/25/17 17:58 ; Admin Dose 100 MLS/HR; Start 01/20/17 at 17:00 Norepinephrine/ Dextrose (Levophed/D5W) 500 ml @ 1.87 mls/hr TITRATE IV ; Start 01/23/17 at 14:30 Metoprolol Tartrate (Lopressor) 12.5 mg BID NGT Last administered on 01/25/17 20:48; Admin Dose 12.5 MG; Start 01/24/17 at 21:00 Insulin Aspart (Novolog Insulin Pen) NOVOLOG *MODERATE* ALGORI... Q4 SC Last administered on 01/25/17 20:51; Admin Dose 2 UNIT; Start 01/25/17 at 13:00 Insulin Glargine (Lantus) 30 unit DAILY@20 SC ; Start 01/26/17 at 20:00 VICENTE LESLIE Jan 26, 2017 13:01
[2017-01-26 15:19] LABS: HEMATOCRIT 29.2 % (42.0-52.0); HEMOGLOBIN 10.1 g/dl (14.0-18.0)
[2017-01-26] MEDS: CEFEPIME 1GM/50 ML (PMX) 50 ML IVPB SCH (16:19)
--- NOTE | 2017-01-26 17:36 | CONS ---
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 Blood cultures from HD catheter on 12/13/2016 are negative to date. 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 MRI on 12/06/2016 and bone scan on showed 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 and left fourth proximal phalanx. superficial swab grew inna only - s/p right pleural effusion s/p thoracentesis with .9L removed on 12/16/2016 - severe , EF 40-45% per TTE 12/17/16 - DM - Hgb A1c 8.7% - HTN associated with DM Tracheostomy site bleeding Plan: Plan for HD today, will give DDAVP 20mcg IV x 1 for Tracheostomy site bleeding s/p Tracheostomy, on ventilator, pt will need HD palcement at a unit where they can do a HD for pt with tracheostomy and PEG tube placemen t pt has severe , very labile BP sometimes with HD will continue to follow up for HD need Consultation Date/Type/Reason Admit Date/Time Dec 02, 2016 at 21:01 Initial Consult Date Type of Consultation: NEPHROLOGY Referring Provider: VIET PARKER MD 24 HR Interval Summary Free Text/Dictation tracheostomy bleeding, Bp stable, plan for HD today Exam/Review of Systems Vital Signs Vitals Vital Signs Date Time Temp Pulse Resp B/P Pulse Ox O2 Delivery O2 Flow Rate FiO2 01/26/17 16:00 73 01/26/17 13:50 16 01/26/17 07:00 147/56 99 Mechanical Ventilator 01/26/17 05:50 30 01/26/17 04:00 98.8 Intake and Output 01/25/17 01/25/17 01/26/17 15:00 23:00 07:00 Intake Total 776 ml 439 ml 660 ml Output Total 0 ml 400 ml 200 ml Balance 776 ml 39 ml 460 ml Results Result Diagram: 01/26/17 1340 01/26/17 0400 Results 24 hrs Laboratory Tests Test 01/25/17 17:57 01/25/17 20:15 01/25/17 20:44 01/26/17 02:00 Bedside Glucose 119 152 85 White Blood Count 9.5 Red Blood Count 2.43 L Hemoglobin 7.5 L Hematocrit 22.0 L Mean Corpuscular Volume 90.5 Mean Corpuscular Hemoglobin 30.9 Mean Corpuscular Hemoglobin Concent 34.1 Red Cell Distribution Width 14.9 H Platelet Count 134 L Mean Platelet Volume 10.1 Neutrophils % 81.0 H Lymphocytes % 10.2 L Monocytes % 7.6 Eosinophils % 0.3 Basophils % 0.1 Nucleated Red Blood Cells % 0.0 Neutrophils # 7.7 H Lymphocytes # 1.0 Monocytes # 0.7 Eosinophils # 0.0 Basophils # 0.0 Nucleated Red Blood Cells # 0.0 Test 01/26/17 04:00 01/26/17 05:16 01/26/17 05:41 01/26/17 05:45 White Blood Count 10.3 Red Blood Count 2.88 L Hemoglobin 8.7 L Hematocrit 26.0 L Mean Corpuscular Volume 90.3 Mean Corpuscular Hemoglobin 30.2 Mean Corpuscular Hemoglobin Concent 33.5 Red Cell Distribution Width 15.2 H Platelet Count 163 # Mean Platelet Volume 10.6 H Neutrophils % 81.1 H Lymphocytes % 10.2 L Monocytes % 7.1 Eosinophils % 0.6 Basophils % 0.1 Nucleated Red Blood Cells % 0.0 Neutrophils # 8.4 H Lymphocytes # 1.1 Monocytes # 0.7 Eosinophils # 0.1 Basophils # 0.0 Nucleated Red Blood Cells # 0.0 Prothrombin Time 14.9 H Prothrombin Time Ratio 1.2 INR International Normalized Ratio 1.16 Activated Partial Thromboplast Time 36.6 H Mix PTT Normal Plasma Immediate Sodium Level 146 H Potassium Level 3.5 Chloride Level 105 Carbon Dioxide Level 30 Anion Gap 15 Blood Urea Nitrogen 45 H Creatinine 1.89 H Glucose Level 62 #L Calcium Level 8.5 Total Bilirubin 1.2 Direct Bilirubin 0.00 Indirect Bilirubin 1.2 H Aspartate Amino Transf (AST/SGOT) 37 Alanine Aminotransferase (ALT/SGPT) 30 Alkaline Phosphatase 82 Total Protein 7.0 Albumin 4.0 Globulin 3.00 Albumin/Globulin Ratio 1.33 Bedside Glucose 61 L 137 Lab Scanned Report BLOOD TRANSFUSION Test 01/26/17 06:33 01/26/17 09:24 01/26/17 13:40 01/26/17 15:34 Bedside Glucose 101 96 143 Hemoglobin 10.1 L Hematocrit 29.2 L Medications Medications Current Medications Ondansetron HCl (Zofran Inj) 4 mg Q6H PRN IV NAUSEA AND/OR VOMITING Last administered on 12/13/16 01:13; Admin Dose 4 MG; Start 12/02/16 at 22:30 Miscellaneous Information 1 ea NOTE XX ; Start 12/02/16 at 23:00 Glucose (Glutose) 15 gm Q15M PRN PO DECREASED GLUCOSE; Start 12/02/16 at 23:00 Glucose (Glutose) 22.5 gm Q15M PRN PO DECREASED GLUCOSE; Start 12/02/16 at 23: 00 Dextrose (D50w Syringe) 25 ml Q15M PRN IV DECREASED GLUCOSE Last administered on 01/26/17 05:21; Admin Dose 25 ML; Start 12/02/16 at 23:00 Dextrose (D50w Syringe) 50 ml Q15M PRN IV DECREASED GLUCOSE Last administered on 01/23/17 04:58; Admin Dose 50 ML; Start 12/02/16 at 23:00 Glucagon (Glucagen) 1 mg Q15M PRN IM DECREASED GLUCOSE; Start 12/02/16 at 23:00 Glucose (Glutose) 15 gm Q15M PRN BUCCAL DECREASED GLUCOSE; Start 12/02/16 at 23 :00 Gabapentin (Neurontin) 800 mg TID PO Last administered on 12/08/16 20:33; Admin Dose 800 MG; Start 12/03/16 at 09:00; Status Future Hold Benazepril HCl (Lotensin) 10 mg DAILY PO Last administered on 12/07/16 08:26; Admin Dose 10 MG; Start 12/04/16 at 09:00; Status Future Hold Acetaminophen (Tylenol Supp) 650 mg Q6H PRN [place] ELEVATED TEMPERATURE Last administered on 01/13/17 20:32; Admin Dose 650 MG; Start 12/09/16 at 17:00 Hydralazine HCl (Apresoline) 10 mg Q6H PRN IV SBP>150mm hg Last administered on 12/19/16 08:50; Admin Dose 10 MG; Start 12/11/16 at 10:30 Morphine Sulfate (morphine) 2 mg Q2H PRN IV PAIN LEVEL 4-7; Start 12/13/16 at 10 :00 Collagenase (Santyl) 1 applic DAILY TOP Last administered on 01/25/17 09:17; Admin Dose 1 APPLIC; Start 01/04/17 at 09:00 Metoprolol Tartrate (Lopressor) 5 mg Q4 PRN IV FOR H.R>110; Start 01/12/17 at 17:30 Acetaminophen (Tylenol Liquid) 650 mg Q6H PRN NGT PAIN AND [place] ELEVATED TEMP; Start 01/13/17 at 23:30 Apixaban (Eliquis) 2.5 mg BID NGT Last administered on 01/22/17 20:32; Admin Dose 2.5 MG; Start 01/13/17 at 21:00; Status Future hold Acetaminophen/ Hydrocodone Bitart ([place] (5/325)) 1 tab Q6H PRN NGT PAIN LEVEL 4-7; Start 01/13/17 at 23:30 Levetiracetam (Keppra Liquid) 1,000 mg DAILY NGT Last administered on 09:26; Admin Dose 1,000 MG; Start 01/14/17 at 09:00 Meclizine HCl (Antivert) 25 mg TID PRN NGT dizziness; Start 01/13/17 at 20:00 Zolpidem Tartrate (Ambien) 5 mg HS PRN NGT INSOMNIA; Start 01/13/17 at 20:00 Aspirin (Aspirin) 81 mg DAILY NGT Last administered on 01/25/17 08:52; Admin Dose 81 MG; Start 01/14/17 at 09:00 Docusate Sodium (Colace Liquid Cup) 100 mg BID NGT Last administered on 20:47; Admin Dose 100 MG; Start 01/13/17 at 21:00 Pantoprazole (Protonix Iv) 40 mg DAILY@06 IV Last administered on 01/26/17 05: 22; Admin Dose 40 MG; Start 01/14/17 at 06:00 Amiodarone HCl 200 mg 200 mg Q8 NGT Last administered on 01/26/17 05:22; Admin Dose 200 MG; Start 01/17/17 at 14:00 Cefepime HCl 50 ml @ 100 mls/hr Q24H IVPB Last administered on 01/26/17 16:19 ; Admin Dose 100 MLS/HR; Start 01/20/17 at 17:00 Norepinephrine/ Dextrose (Levophed/D5W) 500 ml @ 1.87 mls/hr TITRATE IV ; Start 01/23/17 at 14:30 Metoprolol Tartrate (Lopressor) 12.5 mg BID NGT Last administered on 01/25/17 20:48; Admin Dose 12.5 MG; Start 01/24/17 at 21:00 Insulin Aspart (Novolog Insulin Pen) NOVOLOG *MODERATE* ALGORI... Q4 SC Last administered on 01/25/17 20:51; Admin Dose 2 UNIT; Start 01/25/17 at 13:00 Insulin Glargine (Lantus) 30 unit DAILY@20 SC ; Start 01/26/17 at 20:00 TASHIA MCGARRY MD Jan 26, 2017 17:36
[2017-01-26] MEDS ORDERED: DESMOPRESSIN 20 MCG in SOD CHLORIDE 0.9% 50 ML IVPB ONE (18:00)
[2017-01-26] MEDS: INSULIN GLARGINE [LANtus] 3 ML PEN SC SCH (20:41)
[2017-01-27] VITALS (35 sets, daily range): BP systolic 88–142; BP diastolic 45–64; PULSE 58–68; RESP 0–24
[2017-01-27] MEDS: INSULIN ASPART [NOVOLOG] 3 ML PEN SC SCH ×6 (01:01→21:46)
[2017-01-27] MEDS: ALBUTEROL 18 GM INHALER INH SCH ×4 (01:16→19:36)
[2017-01-27] MEDS: AMIODARONE 200 MG TAB NGT SCH ×3 (05:29→23:26)
[2017-01-27] MEDS: PANTOPRAZOLE 40 MG INJ IV SCH (05:29)
[2017-01-27 06:31] LABS: ADD SCAN DIFF NO
[2017-01-27 06:37] LABS: BASOPHILS % 0.1 % (0.0-2.0); EOSINOPHILS # 0.1 10^3/ul (0.0-0.5); EOSINOPHILS % 0.6 % (0.0-7.0); HEMATOCRIT 24.8 % (42.0-52.0); HEMOGLOBIN 8.4 g/dl (14.0-18.0); LYMPHOCYTES # 1.3 10^3/ul (0.8-2.9); LYMPHOCYTES % 11.5 % (15.0-51.0); MEAN CORPUSCULAR HEMOGLOBIN 30.8 pg (29.0-33.0); MEAN CORPUSCULAR HGB CONC 33.9 g/dl (32.0-37.0); MEAN CORPUSCULAR VOLUME 90.8 fl (82.0-101.0); MEAN PLATELET VOLUME 10.3 fl (7.4-10.4); MONOCYTES % 9.2 % (0.0-11.0); NEUTROPHIL # 8.6 10^3/ul (1.6-7.5); NEUTROPHILS % 77.7 % (39.0-77.0); PLATELET COUNT 161 10^3/UL (140-415); RED BLOOD COUNT 2.73 10^6/ul (4.70-6.10); RED CELL DISTRIBUTION WIDTH 15.5 % (11.5-14.5)
--- NOTE | 2017-01-27 06:52 | PN ---
DATE: 01/26/2017 SUBJECTIVE: The patient has no complaints. She is status post tracheostomy and intubation, history of cardiac arrest. The patient continues to show evidence of bleeding from the tracheostomy site. Percutaneous endoscopic gastrostomy tube placement has been requested which at this time is on hold because of the bleeding. IMPRESSION: Dysphagia. PLAN: Recommend percutaneous endoscopic gastrostomy when the bleeding is under control; however, no te needs to be made that the INR is normal. Dictated By: ABEBA MORATAYA/MICHELLE Conf#: [id number] DID#: [id number]
[2017-01-27 07:16] LABS: CALCIUM 8.3 mg/dl (8.4-10.2); CREATININE 1.87 mg/dl (0.61-1.24); POTASSIUM 4.1 mmol/L (3.5-5.1)
--- NOTE | 2017-01-27 08:48 | CONS ---
Date/Time of Note Date/Time of Note DATE: 01/27/17 TIME: 08:45 Assessment/Plan Assessment/Plan Chief Complaint/Hosp Course IMPRESSION: 1. Atrial fibrillation-Having episodes of PAF with reasonable rate control 2. Hypotension-borderline but remains off pressors 3. Abnormal electrocardiogram with inferolateral T-wave inversions. 4. Respiratory failure-s/p trach placement 5. Nonhealing toe ulceration-vascular following 6. Peripheral arterial disease by arterial ultrasound of the lower extremities this admission. 7. Diabetes mellitus. 8. Fevers. 9. Positive troponin-downtrended 10.Bradycardia-improved/stable 11.-severe by echo 12.Cardiomyopathy-EF 40-45% by echo/36% by stress with no ischemia but positive scar. EF <30% by echo post arrest 14.Encephalopathy-anoxic 15. s/p cardiopulmonary arrest 01/08 Recc: -Tele -serial ecg -HD for volume removal as tolerated -Continue baby asa as tolerated only -eliquis to be held in anticiation of possible G tube placement and due to trach site bleeding -Continue PO amio in attempt to maintain SR -Continue BB as tolerated only following HR/BP closely -Will hold on afterload reduction given severe and thus fixed afterload at valve orifice Problems: Consultation Date/Type/Reason Admit Date/Time Dec 02, 2016 at 21:01 Initial Consult Date 12/03/16 Type of Consultation: Cardiology Reason for Consultation /cardiomyopathy/AF Referring Provider: VIET PARKER MD Exam/Review of Systems Vital Signs Vitals Vital Signs Date Time Temp Pulse Resp B/P Pulse Ox O2 Delivery O2 Flow Rate FiO2 01/27/17 07:51 98.1 01/27/17 07:00 62 16 115/57 100 Mechanical Ventilator 01/27/17 05:23 30 Intake and Output 01/26/17 01/26/17 01/27/17 15:00 23:00 07:00 Intake Total 400 ml 225 ml 480 ml Output Total 2500 ml 250 ml Balance -2100 ml -25 ml 480 ml Exam Review of Systems: CONSTITUTIONAL: No fevers, chills. PULMONARY: No sob CARDIOVASCULAR: No chest pain/palpitations GASTROINTESTINAL: No nausea/vomiting. GENITOURINARY: No hematuria/dysuria. MUSCULOSKELETAL: No myagias/arthalgias. PSYCHIATRIC: The patient denies depression. NEUROLOGIC: No weakness Constitutional: alert Psych: no complaints Head: normocephalic ENMT: mucosa pink and moist Neck: jvd, supple Respiratory: diminished breath sounds Cardiovascular: regular rate and rhythm Gastrointestinal: non-tender, soft Musculoskeletal: muscle tone Extremities: edema (none) Neurological: other (No focal deficits) Results Result Diagram: 01/27/17 0512 01/27/17 0512 Results 24 hrs Laboratory Tests Test 01/26/17 09:24 01/26/17 13:40 01/26/17 15:34 01/26/17 20:36 Bedside Glucose 96 143 178 Hemoglobin 10.1 L Hematocrit 29.2 L Test 01/27/17 00:58 01/27/17 05:09 01/27/17 05:12 Bedside Glucose 167 139 White Blood Count 11.0 H Red Blood Count 2.73 L Hemoglobin 8.4 L Hematocrit 24.8 L Mean Corpuscular Volume 90.8 Mean Corpuscular Hemoglobin 30.8 Mean Corpuscular Hemoglobin Concent 33.9 Red Cell Distribution Width 15.5 H Platelet Count 161 Mean Platelet Volume 10.3 Neutrophils % 77.7 H Lymphocytes % 11.5 L Monocytes % 9.2 Eosinophils % 0.6 Basophils % 0.1 Nucleated Red Blood Cells % 0.0 Neutrophils # 8.6 H Lymphocytes # 1.3 Monocytes # 1.0 H Eosinophils # 0.1 Basophils # 0.0 Nucleated Red Blood Cells # 0.0 Sodium Level 144 Potassium Level 4.1 Chloride Level 105 Carbon Dioxide Level 31 Anion Gap 12 Blood Urea Nitrogen 40 H Creatinine 1.87 H Glucose Level 122 # Calcium Level 8.3 L Medications Medications Current Medications Ondansetron HCl (Zofran Inj) 4 mg Q6H PRN IV NAUSEA AND/OR VOMITING Last administered on 12/13/16 01:13; Admin Dose 4 MG; Start 12/02/16 at 22:30 Miscellaneous Information 1 ea NOTE XX ; Start 12/02/16 at 23:00 Glucose (Glutose) 15 gm Q15M PRN PO DECREASED GLUCOSE; Start 12/02/16 at 23:00 Glucose (Glutose) 22.5 gm Q15M PRN PO DECREASED GLUCOSE; Start 12/02/16 at 23: 00 Dextrose (D50w Syringe) 25 ml Q15M PRN IV DECREASED GLUCOSE Last administered on 01/26/17 05:21; Admin Dose 25 ML; Start 12/02/16 at 23:00 Dextrose (D50w Syringe) 50 ml Q15M PRN IV DECREASED GLUCOSE Last administered on 01/23/17 04:58; Admin Dose 50 ML; Start 12/02/16 at 23:00 Glucagon (Glucagen) 1 mg Q15M PRN IM DECREASED GLUCOSE; Start 12/02/16 at 23:00 Glucose (Glutose) 15 gm Q15M PRN BUCCAL DECREASED GLUCOSE; Start 12/02/16 at 23 :00 Gabapentin (Neurontin) 800 mg TID PO Last administered on 12/08/16 20:33; Admin Dose 800 MG; Start 12/03/16 at 09:00; Status Future Hold Benazepril HCl (Lotensin) 10 mg DAILY PO Last administered on 12/07/16 08:26; Admin Dose 10 MG; Start 12/04/16 at 09:00; Status Future Hold Acetaminophen (Tylenol Supp) 650 mg Q6H PRN [place] ELEVATED TEMPERATURE Last administered on 01/13/17 20:32; Admin Dose 650 MG; Start 12/09/16 at 17:00 Hydralazine HCl (Apresoline) 10 mg Q6H PRN IV SBP>150mm hg Last administered on 12/19/16 08:50; Admin Dose 10 MG; Start 12/11/16 at 10:30 Morphine Sulfate (morphine) 2 mg Q2H PRN IV PAIN LEVEL 4-7; Start 12/13/16 at 10 :00 Collagenase (Santyl) 1 applic DAILY TOP Last administered on 01/25/17 09:17; Admin Dose 1 APPLIC; Start 01/04/17 at 09:00 Metoprolol Tartrate (Lopressor) 5 mg Q4 PRN IV FOR H.R>110; Start 01/12/17 at 17:30 Acetaminophen (Tylenol Liquid) 650 mg Q6H PRN NGT PAIN AND OR ELEVATED TEMP; Start 01/13/17 at 23:30 Apixaban (Eliquis) 2.5 mg BID NGT Last administered on 01/22/17 20:32; Admin Dose 2.5 MG; Start 01/13/17 at 21:00; Status Future hold Acetaminophen/ Hydrocodone Bitart ([place] (5/325)) 1 tab Q6H PRN NGT PAIN LEVEL 4-7; Start 01/13/17 at 23:30 Levetiracetam (Keppra Liquid) 1,000 mg DAILY NGT Last administered on 09:26; Admin Dose 1,000 MG; Start 01/14/17 at 09:00 Meclizine HCl (Antivert) 25 mg TID PRN NGT dizziness; Start 01/13/17 at 20:00 Zolpidem Tartrate (Ambien) 5 mg HS PRN NGT INSOMNIA; Start 01/13/17 at 20:00 Aspirin (Aspirin) 81 mg DAILY NGT Last administered on 01/25/17 08:52; Admin Dose 81 MG; Start 01/14/17 at 09:00 Docusate Sodium (Colace Liquid Cup) 100 mg BID NGT Last administered on 20:37; Admin Dose 100 MG; Start 01/13/17 at 21:00 Pantoprazole (Protonix Iv) 40 mg DAILY@06 IV Last administered on 01/27/17 05: 29; Admin Dose 40 MG; Start 01/14/17 at 06:00 Amiodarone HCl 200 mg 200 mg Q8 NGT Last administered on 01/26/17 22:48; Admin Dose 200 MG; Start 01/17/17 at 14:00 Cefepime HCl 50 ml @ 100 mls/hr Q24H IVPB Last administered on 01/26/17 16:19 ; Admin Dose 100 MLS/HR; Start 01/20/17 at 17:00 Norepinephrine/ Dextrose (Levophed/D5W) 500 ml @ 1.87 mls/hr TITRATE IV ; Start 01/23/17 at 14:30 Metoprolol Tartrate (Lopressor) 12.5 mg BID NGT Last administered on 01/26/17 20:38; Admin Dose 12.5 MG; Start 01/24/17 at 21:00 Insulin Aspart (Novolog Insulin Pen) NOVOLOG *MODERATE* ALGORI... Q4 SC Last administered on 01/27/17 01:01; Admin Dose 2 UNIT; Start 01/25/17 at 13:00 Insulin Glargine (Lantus) 30 unit DAILY@20 SC Last administered on 01/26/17 20 :41; Admin Dose 30 UNIT; Start 01/26/17 at 20:00 VICENTE LESLIE Jan 27, 2017 08:48
[2017-01-27] MEDS: ASPIRIN 81 MG TAB NGT SCH (09:07)
[2017-01-27] MEDS: DOCUSATE SODIUM 10 MG/ML (10ML CUP) NGT SCH ×2 (09:08→21:41)
[2017-01-27] MEDS: METOPROLOL 25 MG TAB NGT SCH ×2 (09:08→21:43)
[2017-01-27] MEDS: LEVETIRACETAM (100 MG/ML) 5ML CUP NGT SCH (09:08)
[2017-01-27] MEDS: APIXABAN 5 MG TABLET NGT SCH ×2 (09:09→21:41)
[2017-01-27] MEDS: COLLAGENASE 30 GM TUBE TOP SCH (09:10)
--- NOTE | 2017-01-27 09:40 | PN ---
Date/Time of Note Date/Time of Note DATE: 01/27/17 TIME: 09:37 Assessment/Plan VTE Prophylaxis VTE Prophylaxis Intervention: other Lines/Catheters IV C[facility]ter Type (from [facility]): Peripheral IV Urinary Cath still in place: No Assessment/Plan Assessment/Plan 1. Anemia of acute blood loss. - sp 2 units of packed red blood cells. - monitor hemoglobin and hematocrit q.8h. since patient continues to have a small amount of bleeding from the tracheostomy site.- none noted, 2. Elevated PT and PTT, patient previously was on Eliquis, paroxysmal atrial fibrillation, which was stopped prior to procedure. Transfuse FFP p.r.n. Continue to monitor. 3. Status post tracheostomy by Dr. Nichols on 01/23/2017, continue to follow up ENT recommendations. 4. Anoxic encephalopathy. 5. Status post cardiopulmonary arrest on 12/09/2016 and 01/08/2017, continue ventilatory support, ICU care. 6. End-stage renal disease. Continue hemodialysis per nephrology. 7. Diabetes mellitus type 2. Continue Lantus and NovoLog with Accu-Cheks q.4h. 8. Tracheobronchitis versus early pneumonia with sputum culture positive for Pseudomonas. - per ID Further recommendations based on clinical course. Plan of care discussed with Dr. Heredia. Subjective 24 Hr Interval Summary Free Text/Dictation afebrile, trach intact- remains on vent, Hgb stable now, dw staff- awaiting GT placement. Subjective hx not possible: pt critical status Constitutional: requiring IVF, requiring O2 Exam/Review of Systems Vital Signs Vitals Vital Signs Date Time Temp Pulse Resp B/P Pulse Ox O2 Delivery O2 Flow Rate FiO2 01/27/17 09:00 63 16 130/62 100 Mechanical Ventilator 01/27/17 07:51 98.1 01/27/17 05:23 30 Intake and Output 01/26/17 01/26/17 01/27/17 15:00 23:00 07:00 Intake Total 400 ml 225 ml 480 ml Output Total 2500 ml 250 ml Balance -2100 ml -25 ml 480 ml Exam Constitutional: frail Respiratory: clear to auscultation, normal air movement Cardiovascular: nl pulses Gastrointestinal: non-tender, other (ngt intact- ), soft Musculoskeletal: muscle weakness Extremities: normal pulses Neurological: unresponsive Results Result Diagram: 6/15/17 0512 6/15/17 0512 Results 24 hrs Laboratory Tests Test 01/26/17 13:40 01/26/17 15:34 01/26/17 20:36 01/27/17 00:58 Hemoglobin 10.1 L Hematocrit 29.2 L Bedside Glucose 143 178 167 Test 01/27/17 05:09 01/27/17 05:12 01/27/17 09:09 Bedside Glucose 139 134 White Blood Count 11.0 H Red Blood Count 2.73 L Hemoglobin 8.4 L Hematocrit 24.8 L Mean Corpuscular Volume 90.8 Mean Corpuscular Hemoglobin 30.8 Mean Corpuscular Hemoglobin Concent 33.9 Red Cell Distribution Width 15.5 H Platelet Count 161 Mean Platelet Volume 10.3 Neutrophils % 77.7 H Lymphocytes % 11.5 L Monocytes % 9.2 Eosinophils % 0.6 Basophils % 0.1 Nucleated Red Blood Cells % 0.0 Neutrophils # 8.6 H Lymphocytes # 1.3 Monocytes # 1.0 H Eosinophils # 0.1 Basophils # 0.0 Nucleated Red Blood Cells # 0.0 Sodium Level 144 Potassium Level 4.1 Chloride Level 105 Carbon Dioxide Level 31 Anion Gap 12 Blood Urea Nitrogen 40 H Creatinine 1.87 H Glucose Level 122 # Calcium Level 8.3 L Medications Medications Current Medications Ondansetron HCl (Zofran Inj) 4 mg Q6H PRN IV NAUSEA AND/OR VOMITING Last administered on 12/13/16 01:13; Admin Dose 4 MG; Start 12/02/16 at 22:30 Miscellaneous Information 1 ea NOTE XX ; Start 12/02/16 at 23:00 Glucose (Glutose) 15 gm Q15M PRN PO DECREASED GLUCOSE; Start 12/02/16 at 23:00 Glucose (Glutose) 22.5 gm Q15M PRN PO DECREASED GLUCOSE; Start 12/02/16 at 23: 00 Dextrose (D50w Syringe) 25 ml Q15M PRN IV DECREASED GLUCOSE Last administered on 01/26/17 05:21; Admin Dose 25 ML; Start 12/02/16 at 23:00 Dextrose (D50w Syringe) 50 ml Q15M PRN IV DECREASED GLUCOSE Last administered on 01/23/17 04:58; Admin Dose 50 ML; Start 12/02/16 at 23:00 Glucagon (Glucagen) 1 mg Q15M PRN IM DECREASED GLUCOSE; Start 12/02/16 at 23:00 Glucose (Glutose) 15 gm Q15M PRN BUCCAL DECREASED GLUCOSE; Start 12/02/16 at 23 :00 Gabapentin (Neurontin) 800 mg TID PO Last administered on 12/08/16 20:33; Admin Dose 800 MG; Start 12/03/16 at 09:00; Status Future Hold Benazepril HCl (Lotensin) 10 mg DAILY PO Last administered on 12/07/16 08:26; Admin Dose 10 MG; Start 12/04/16 at 09:00; Status Future Hold Acetaminophen (Tylenol Supp) 650 mg Q6H PRN [place] ELEVATED TEMPERATURE Last administered on 01/13/17 20:32; Admin Dose 650 MG; Start 12/09/16 at 17:00 Hydralazine HCl (Apresoline) 10 mg Q6H PRN IV SBP>150mm hg Last administered on 12/19/16 08:50; Admin Dose 10 MG; Start 12/11/16 at 10:30 Morphine Sulfate (morphine) 2 mg Q2H PRN IV PAIN LEVEL 4-7; Start 12/13/16 at 10 :00 Collagenase (Santyl) 1 applic DAILY TOP Last administered on 01/27/17 09:10; Admin Dose 1 APPLIC; Start 01/04/17 at 09:00 Metoprolol Tartrate (Lopressor) 5 mg Q4 PRN IV FOR H.R>110; Start 01/12/17 at 17:30 Acetaminophen (Tylenol Liquid) 650 mg Q6H PRN NGT PAIN AND OR ELEVATED TEMP; Start 01/13/17 at 23:30 Apixaban (Eliquis) 2.5 mg BID NGT Last administered on 01/27/17 09:09; Admin Dose 2.5 MG; Start 01/13/17 at 21:00; Status Future hold Acetaminophen/ Hydrocodone Bitart ([place] (5/325)) 1 tab Q6H PRN NGT PAIN LEVEL 4-7; Start 01/13/17 at 23:30 Levetiracetam (Keppra Liquid) 1,000 mg DAILY NGT Last administered on 09:08; Admin Dose 1,000 MG; Start 01/14/17 at 09:00 Meclizine HCl (Antivert) 25 mg TID PRN NGT dizziness; Start 01/13/17 at 20:00 Zolpidem Tartrate (Ambien) 5 mg HS PRN NGT INSOMNIA; Start 01/13/17 at 20:00 Aspirin (Aspirin) 81 mg DAILY NGT Last administered on 01/27/17 09:07; Admin Dose 81 MG; Start 01/14/17 at 09:00 Docusate Sodium (Colace Liquid Cup) 100 mg BID NGT Last administered on 09:08; Admin Dose 100 MG; Start 01/13/17 at 21:00 Pantoprazole (Protonix Iv) 40 mg DAILY@06 IV Last administered on 01/27/17 05: 29; Admin Dose 40 MG; Start 01/14/17 at 06:00 Amiodarone HCl 200 mg 200 mg Q8 NGT Last administered on 01/26/17 22:48; Admin Dose 200 MG; Start 01/17/17 at 14:00 Cefepime HCl 50 ml @ 100 mls/hr Q24H IVPB Last administered on 01/26/17 16:19 ; Admin Dose 100 MLS/HR; Start 01/20/17 at 17:00 Norepinephrine/ Dextrose (Levophed/D5W) 500 ml @ 1.87 mls/hr TITRATE IV ; Start 01/23/17 at 14:30 Metoprolol Tartrate (Lopressor) 12.5 mg BID NGT Last administered on 01/27/17 09:08; Admin Dose 12.5 MG; Start 01/24/17 at 21:00 Insulin Aspart (Novolog Insulin Pen) NOVOLOG *MODERATE* ALGORI... Q4 SC Last administered on 01/27/17 01:01; Admin Dose 2 UNIT; Start 01/25/17 at 13:00 Insulin Glargine (Lantus) 30 unit DAILY@20 SC Last administered on 01/26/17 20 :41; Admin Dose 30 UNIT; Start 01/26/17 at 20:00 YULIANA SIMMONS Jan 27, 2017 09:40
--- NOTE | 2017-01-27 11:03 | CONS ---
Date/Time of Note Date/Time of Note DATE: 01/27/17 TIME: 10:58 Assessment/Plan Assessment/Plan Additional Assessment/Plan Ventilator setting; AC of 16, tidal volume 500, PEEP of 5, 30% FiO2. Assessment recommendations; next 1. Patient admitted for recurrent respiratory failure twice you know requiring tracheostomy because of failure to be weaned off ventilator. Status post CPR with severe anoxic brain injury. 2. Lower extremity cellulitis. 3. Questionable toe osteomyelitis. 4. Renal failure, on hemodialysis. 5. Cardiomyopathy. Continue current supportive care. Patient can be discharged to rehab center. Prognosis remains poor. Consultation Date/Type/Reason Admit Date/Time Dec 02, 2016 at 21:01 Initial Consult Date 12/03/16 Type of Consultation: Pulmonary/critical care Referring Provider: VIET PARKER MD 24 HR Interval Summary Free Text/Dictation Patient condition remains stable. Remains unresponsive. No untoward events reported. Jeanna; elderly male, on ventilator via tracheostomy currently in no distress. Unresponsive. Exam/Review of Systems Vital Signs Vitals Vital Signs Date Time Temp Pulse Resp B/P Pulse Ox O2 Delivery O2 Flow Rate FiO2 01/27/17 09:15 63 17 95 30 01/27/17 09:00 130/62 Mechanical Ventilator 01/27/17 07:51 98.1 Intake and Output 01/26/17 01/26/17 01/27/17 14:59 22:59 06:59 Intake Total 400 ml 225 ml 480 ml Output Total 2500 ml 250 ml Balance -2100 ml -25 ml 480 ml Exam HEENT examination; supple neck, no JVD. No lymphadenopathy. Midline trachea. No thyromegaly. Tracheostomy in place with clean insertion site. Patient is edentulous. Chest examination; clear to ulceration. S1-S2 audible, no murmurs. Regular rhythm. Abdomen examination; soft, no organomegaly. Bowel sounds audible. Extremity examination; no peripheral edema. [employer] examination; patient remains unresponsive. Results Result Diagram: 01/27/1751101/27/17511 Results 24 hrs Laboratory Tests Test 01/26/17 13:40 01/26/17 15:34 01/26/17 20:36 01/27/17 00:58 Hemoglobin 10.1 L Hematocrit 29.2 L Bedside Glucose 143 178 167 Test 01/27/17 05:09 01/27/17 05:12 01/27/17 09:09 Bedside Glucose 139 134 White Blood Count 11.0 H Red Blood Count 2.73 L Hemoglobin 8.4 L Hematocrit 24.8 L Mean Corpuscular Volume 90.8 Mean Corpuscular Hemoglobin 30.8 Mean Corpuscular Hemoglobin Concent 33.9 Red Cell Distribution Width 15.5 H Platelet Count 161 Mean Platelet Volume 10.3 Neutrophils % 77.7 H Lymphocytes % 11.5 L Monocytes % 9.2 Eosinophils % 0.6 Basophils % 0.1 Nucleated Red Blood Cells % 0.0 Neutrophils # 8.6 H Lymphocytes # 1.3 Monocytes # 1.0 H Eosinophils # 0.1 Basophils # 0.0 Nucleated Red Blood Cells # 0.0 Sodium Level 144 Potassium Level 4.1 Chloride Level 105 Carbon Dioxide Level 31 Anion Gap 12 Blood Urea Nitrogen 40 H Creatinine 1.87 H Glucose Level 122 # Calcium Level 8.3 L Medications Medications Current Medications Ondansetron HCl (Zofran Inj) 4 mg Q6H PRN IV NAUSEA AND/OR VOMITING Last administered on 12/13/16 01:13; Admin Dose 4 MG; Start 12/02/16 at 22:30 Miscellaneous Information 1 ea NOTE XX ; Start 12/02/16 at 23:00 Glucose (Glutose) 15 gm Q15M PRN PO DECREASED GLUCOSE; Start 12/02/16 at 23:00 Glucose (Glutose) 22.5 gm Q15M PRN PO DECREASED GLUCOSE; Start 12/02/16 at 23: 00 Dextrose (D50w Syringe) 25 ml Q15M PRN IV DECREASED GLUCOSE Last administered on 01/26/17 05:21; Admin Dose 25 ML; Start 12/02/16 at 23:00 Dextrose (D50w Syringe) 50 ml Q15M PRN IV DECREASED GLUCOSE Last administered on 01/23/17 04:58; Admin Dose 50 ML; Start 12/02/16 at 23:00 Glucagon (Glucagen) 1 mg Q15M PRN IM DECREASED GLUCOSE; Start 12/02/16 at 23:00 Glucose (Glutose) 15 gm Q15M PRN BUCCAL DECREASED GLUCOSE; Start 12/02/16 at 23 :00 Gabapentin (Neurontin) 800 mg TID PO Last administered on 12/08/16 20:33; Admin Dose 800 MG; Start 12/03/16 at 09:00; Status Future Hold Benazepril HCl (Lotensin) 10 mg DAILY PO Last administered on 12/07/16 08:26; Admin Dose 10 MG; Start 12/04/16 at 09:00; Status Future Hold Acetaminophen (Tylenol Supp) 650 mg Q6H PRN [place] ELEVATED TEMPERATURE Last administered on 01/13/17 20:32; Admin Dose 650 MG; Start 12/09/16 at 17:00 Hydralazine HCl (Apresoline) 10 mg Q6H PRN IV SBP>150mm hg Last administered on 12/19/16 08:50; Admin Dose 10 MG; Start 12/11/16 at 10:30 Morphine Sulfate (morphine) 2 mg Q2H PRN IV PAIN LEVEL 4-7; Start 12/13/16 at 10 :00 Collagenase (Santyl) 1 applic DAILY TOP Last administered on 01/27/17 09:10; Admin Dose 1 APPLIC; Start 01/04/17 at 09:00 Metoprolol Tartrate (Lopressor) 5 mg Q4 PRN IV FOR H.R>110; Start 01/12/17 at 17:30 Acetaminophen (Tylenol Liquid) 650 mg Q6H PRN NGT PAIN AND [place] ELEVATED TEMP; Start 01/13/17 at 23:30 Apixaban (Eliquis) 2.5 mg BID NGT Last administered on 01/27/17 09:09; Admin Dose 2.5 MG; Start 01/13/17 at 21:00; Status Future hold Acetaminophen/ Hydrocodone Bitart ([place] (5/325)) 1 tab Q6H PRN NGT PAIN LEVEL 4-7; Start 01/13/17 at 23:30 Levetiracetam (Keppra Liquid) 1,000 mg DAILY NGT Last administered on 09:08; Admin Dose 1,000 MG; Start 01/14/17 at 09:00 Meclizine HCl (Antivert) 25 mg TID PRN NGT dizziness; Start 01/13/17 at 20:00 Zolpidem Tartrate (Ambien) 5 mg HS PRN NGT INSOMNIA; Start 01/13/17 at 20:00 Aspirin (Aspirin) 81 mg DAILY NGT Last administered on 01/27/17 09:07; Admin Dose 81 MG; Start 01/14/17 at 09:00 Docusate Sodium (Colace Liquid Cup) 100 mg BID NGT Last administered on 09:08; Admin Dose 100 MG; Start 01/13/17 at 21:00 Pantoprazole (Protonix Iv) 40 mg DAILY@06 IV Last administered on 01/27/17 05: 29; Admin Dose 40 MG; Start 01/14/17 at 06:00 Amiodarone HCl 200 mg 200 mg Q8 NGT Last administered on 01/26/17 22:48; Admin Dose 200 MG; Start 01/17/17 at 14:00 Cefepime HCl 50 ml @ 100 mls/hr Q24H IVPB Last administered on 01/26/17 16:19 ; Admin Dose 100 MLS/HR; Start 01/20/17 at 17:00 Norepinephrine/ Dextrose (Levophed/D5W) 500 ml @ 1.87 mls/hr TITRATE IV ; Start 01/23/17 at 14:30 Metoprolol Tartrate (Lopressor) 12.5 mg BID NGT Last administered on 01/27/17 09:08; Admin Dose 12.5 MG; Start 01/24/17 at 21:00 Insulin Aspart (Novolog Insulin Pen) NOVOLOG *MODERATE* ALGORI... Q4 SC Last administered on 01/27/17 01:01; Admin Dose 2 UNIT; Start 01/25/17 at 13:00 Insulin Glargine (Lantus) 30 unit DAILY@20 SC Last administered on 01/26/17 20 :41; Admin Dose 30 UNIT; Start 01/26/17 at 20:00 IKE MULLER Jan 27, 2017 11:03
--- NOTE | 2017-01-27 11:40 | CONS ---
Date/Time of Note Date/Time of Note DATE: 01/27/17 TIME: 11:39 Assessment/Plan Assessment/Plan Chief Complaint/Hosp Course -- recurrent cardiopulmonary arrest on 12/09/2016 and on 01/08/2017 - sepsis due to possible tracheobronchitis/pneumonia - recurrent cardiopulmonary arrest on 12/09/2016 and on 01/08/2017 - sepsis due to possible tracheobronchitis/pneumonia - possible tracheobronchitis/pneumonia due to pseudomonas - s/p recurrent sepsis - 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 Blood cultures from HD catheter on 12/13/2016 are negative to date. 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 MRI on 12/06/2016 and bone scan on showed 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 and left fourth proximal phalanx. superficial swab grew inna only. At present, no e/o persistent infection - recurrent pleural effusion - s/p right pleural effusion s/p thoracentesis with .9L removed on 12/16/2016; ( Note: there is no pleural fluid cx since orders were placed after Right thoracentesis, and Left thoracentesis was not performed on 12/17/16 d/t insufficient fluid) - funguria - ARANZA on CKD that progressed to ESRD and started on HD from 12/09/2016 - oliguria - improved - A fib -> PAF - small nonreversible perfusion abnormality in the inferoapical and inferior carver; EF 36% per Lexiscan 12/24/2016 - severe , EF 40-45% per TTE 12/17/16 - DM - Hgb A1c 8.7% - HTN associated with DM - recurrent episodes of respiratory failure - acute encephalopathy with anoxic brain injury - stage 3 decubitus ulcer of coccyx without evidence of infection - urinary retention - improved - VDRF s/p tracheostomy 01/23/2017 NOTE: Pt completed 6 weeks (12/03/2016-01/15/2017) of antibiotics to treat 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 and left fourth proximal phalanx ; s/p pip/tazo 12/03/16-01/08/17; linezolid 01/08/17-01/20/17; caspofungin 01/12/17-01/21/17. recommendations: - continue renally dosed cefepime for pseudomonas (01/15/2017-) to finish 14 days total - continue local wound care of L 1st toe and coccyx Problems: Consultation Date/Type/Reason Admit Date/Time Dec 02, 2016 at 21:01 Type of Consultation: id Referring Provider: VIET PARKER MD Exam/Review of Systems Vital Signs Vitals Vital Signs Date Time Temp Pulse Resp B/P Pulse Ox O2 Delivery O2 Flow Rate FiO2 01/27/17 09:15 63 17 95 30 01/27/17 09:00 130/62 Mechanical Ventilator 01/27/17 07:51 98.1 Intake and Output 01/26/17 01/26/17 01/27/17 15:00 23:00 07:00 Intake Total 400 ml 225 ml 510 ml Output Total 2500 ml 250 ml 0 ml Balance -2100 ml -25 ml 510 ml Exam Constitutional: non-verbal Psych: nl mood/affect, no complaints Head: atraumatic, normocephalic Respiratory: clear to auscultation, normal air movement Cardiovascular: nl pulses, regular rate and rhythm Results Result Diagram: 01/27/1751101/27/17 0512 Results 24 hrs Laboratory Tests Test 01/26/17 13:40 01/26/17 15:34 01/26/17 20:36 01/27/17 00:58 Hemoglobin 10.1 L Hematocrit 29.2 L Bedside Glucose 143 178 167 Test 01/27/17 05:09 01/27/17 05:12 01/27/17 09:09 Bedside Glucose 139 134 White Blood Count 11.0 H Red Blood Count 2.73 L Hemoglobin 8.4 L Hematocrit 24.8 L Mean Corpuscular Volume 90.8 Mean Corpuscular Hemoglobin 30.8 Mean Corpuscular Hemoglobin Concent 33.9 Red Cell Distribution Width 15.5 H Platelet Count 161 Mean Platelet Volume 10.3 Neutrophils % 77.7 H Lymphocytes % 11.5 L Monocytes % 9.2 Eosinophils % 0.6 Basophils % 0.1 Nucleated Red Blood Cells % 0.0 Neutrophils # 8.6 H Lymphocytes # 1.3 Monocytes # 1.0 H Eosinophils # 0.1 Basophils # 0.0 Nucleated Red Blood Cells # 0.0 Sodium Level 144 Potassium Level 4.1 Chloride Level 105 Carbon Dioxide Level 31 Anion Gap 12 Blood Urea Nitrogen 40 H Creatinine 1.87 H Glucose Level 122 # Calcium Level 8.3 L Medications Medications Current Medications Ondansetron HCl (Zofran Inj) 4 mg Q6H PRN IV NAUSEA AND/OR VOMITING Last administered on 12/13/16 01:13; Admin Dose 4 MG; Start 12/02/16 at 22:30 Miscellaneous Information 1 ea NOTE XX ; Start 12/02/16 at 23:00 Glucose (Glutose) 15 gm Q15M PRN PO DECREASED GLUCOSE; Start 12/02/16 at 23:00 Glucose (Glutose) 22.5 gm Q15M PRN PO DECREASED GLUCOSE; Start 12/02/16 at 23: 00 Dextrose (D50w Syringe) 25 ml Q15M PRN IV DECREASED GLUCOSE Last administered on 01/26/17 05:21; Admin Dose 25 ML; Start 12/02/16 at 23:00 Dextrose (D50w Syringe) 50 ml Q15M PRN IV DECREASED GLUCOSE Last administered on 01/23/17 04:58; Admin Dose 50 ML; Start 12/02/16 at 23:00 Glucagon (Glucagen) 1 mg Q15M PRN IM DECREASED GLUCOSE; Start 12/02/16 at 23:00 Glucose (Glutose) 15 gm Q15M PRN BUCCAL DECREASED GLUCOSE; Start 12/02/16 at 23 :00 Gabapentin (Neurontin) 800 mg TID PO Last administered on 12/08/16 20:33; Admin Dose 800 MG; Start 12/03/16 at 09:00; Status Future Hold Benazepril HCl (Lotensin) 10 mg DAILY PO Last administered on 12/07/16 08:26; Admin Dose 10 MG; Start 12/04/16 at 09:00; Status Future Hold Acetaminophen (Tylenol Supp) 650 mg Q6H PRN [place] ELEVATED TEMPERATURE Last administered on 01/13/17 20:32; Admin Dose 650 MG; Start 12/09/16 at 17:00 Hydralazine HCl (Apresoline) 10 mg Q6H PRN IV SBP>150mm hg Last administered on 12/19/16 08:50; Admin Dose 10 MG; Start 12/11/16 at 10:30 Morphine Sulfate (morphine) 2 mg Q2H PRN IV PAIN LEVEL 4-7; Start 12/13/16 at 10 :00 Collagenase (Santyl) 1 applic DAILY TOP Last administered on 01/27/17 09:10; Admin Dose 1 APPLIC; Start 01/04/17 at 09:00 Metoprolol Tartrate (Lopressor) 5 mg Q4 PRN IV FOR H.R>110; Start 01/12/17 at 17:30 Acetaminophen (Tylenol Liquid) 650 mg Q6H PRN NGT PAIN AND OR ELEVATED TEMP; Start 01/13/17 at 23:30 Apixaban (Eliquis) 2.5 mg BID NGT Last administered on 01/27/17 09:09; Admin Dose 2.5 MG; Start 01/13/17 at 21:00; Status Future hold Acetaminophen/ Hydrocodone Bitart ([place] (5/325)) 1 tab Q6H PRN NGT PAIN LEVEL 4-7; Start 01/13/17 at 23:30 Levetiracetam (Keppra Liquid) 1,000 mg DAILY NGT Last administered on 09:08; Admin Dose 1,000 MG; Start 01/14/17 at 09:00 Meclizine HCl (Antivert) 25 mg TID PRN NGT dizziness; Start 01/13/17 at 20:00 Zolpidem Tartrate (Ambien) 5 mg HS PRN NGT INSOMNIA; Start 01/13/17 at 20:00 Aspirin (Aspirin) 81 mg DAILY NGT Last administered on 01/27/17 09:07; Admin Dose 81 MG; Start 01/14/17 at 09:00 Docusate Sodium (Colace Liquid Cup) 100 mg BID NGT Last administered on 09:08; Admin Dose 100 MG; Start 01/13/17 at 21:00 Pantoprazole (Protonix Iv) 40 mg DAILY@06 IV Last administered on 01/27/17 05: 29; Admin Dose 40 MG; Start 01/14/17 at 06:00 Amiodarone HCl 200 mg 200 mg Q8 NGT Last administered on 01/26/17 22:48; Admin Dose 200 MG; Start 01/17/17 at 14:00 Cefepime HCl 50 ml @ 100 mls/hr Q24H IVPB Last administered on 01/26/17 16:19 ; Admin Dose 100 MLS/HR; Start 01/20/17 at 17:00 Norepinephrine/ Dextrose (Levophed/D5W) 500 ml @ 1.87 mls/hr TITRATE IV ; Start 01/23/17 at 14:30 Metoprolol Tartrate (Lopressor) 12.5 mg BID NGT Last administered on 01/27/17 09:08; Admin Dose 12.5 MG; Start 01/24/17 at 21:00 Insulin Aspart (Novolog Insulin Pen) NOVOLOG *MODERATE* ALGORI... Q4 SC Last administered on 01/27/17 01:01; Admin Dose 2 UNIT; Start 01/25/17 at 13:00 Insulin Glargine (Lantus) 30 unit DAILY@20 SC Last administered on 01/26/17 20 :41; Admin Dose 30 UNIT; Start 01/26/17 at 20:00 NIKHIL RAM MD Jan 27, 2017 11:40
[2017-01-27] MEDS: CEFEPIME 1GM/50 ML (PMX) 50 ML IVPB SCH (16:11)
--- NOTE | 2017-01-27 16:44 | CONS ---
Date/Time of Note Date/Time of Note DATE: 01/27/17 TIME: 16:42 Assessment/Plan Assessment/Plan Additional Assessment/Plan -S/p cardiopulmonary arrest on 12/09/2016 and on 01/08/2017 - 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 Blood cultures from HD catheter on 12/13/2016 are negative to date. 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 MRI on 12/06/2016 and bone scan on showed 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 and left fourth proximal phalanx. superficial swab grew inna only - s/p right pleural effusion s/p thoracentesis with .9L removed on 12/16/2016 - severe , EF 40-45% per TTE 12/17/16 - DM - Hgb A1c 8.7% - HTN associated with DM Tracheostomy site bleeding Plan: S/p DDAVP yesterday, Plan for HD tomorrow s/p Tracheostomy, on ventilator, pt will need HD palcement at a unit where they can do a HD for pt with tracheostomy and PEG tube placemen t pt has severe , very labile BP sometimes with HD will continue to follow up for HD need Consultation Date/Type/Reason Admit Date/Time Dec 02, 2016 at 21:01 Initial Consult Date Type of Consultation: NEPHROLOGY Referring Provider: VIET PARKER MD 24 HR Interval Summary Free Text/Dictation remains stable on ventilator, BP stable, afebrile Exam/Review of Systems Vital Signs Vitals Vital Signs Date Time Temp Pulse Resp B/P Pulse Ox O2 Delivery O2 Flow Rate FiO2 01/27/17 16:00 61 16 107/45 98 Mechanical Ventilator 01/27/17 16:00 98.1 01/27/17 15:05 30 Intake and Output 01/26/17 01/26/17 01/27/17 15:00 23:00 07:00 Intake Total 400 ml 225 ml 510 ml Output Total 2500 ml 250 ml 0 ml Balance -2100 ml -25 ml 510 ml Exam Constitutional: non-verbal Head: normocephalic Neck: non-tender, other (+ tracheostomy ), supple Respiratory: diminished breath sounds, wheezing Cardiovascular: regular rate and rhythm Gastrointestinal: soft Results Result Diagram: 01/27/17 0512 01/27/17 0512 Results 24 hrs Laboratory Tests Test 01/26/17 20:36 01/27/17 00:58 01/27/17 05:09 01/27/17 05:12 Bedside Glucose 178 167 139 White Blood Count 11.0 H Red Blood Count 2.73 L Hemoglobin 8.4 L Hematocrit 24.8 L Mean Corpuscular Volume 90.8 Mean Corpuscular Hemoglobin 30.8 Mean Corpuscular Hemoglobin Concent 33.9 Red Cell Distribution Width 15.5 H Platelet Count 161 Mean Platelet Volume 10.3 Neutrophils % 77.7 H Lymphocytes % 11.5 L Monocytes % 9.2 Eosinophils % 0.6 Basophils % 0.1 Nucleated Red Blood Cells % 0.0 Neutrophils # 8.6 H Lymphocytes # 1.3 Monocytes # 1.0 H Eosinophils # 0.1 Basophils # 0.0 Nucleated Red Blood Cells # 0.0 Sodium Level 144 Potassium Level 4.1 Chloride Level 105 Carbon Dioxide Level 31 Anion Gap 12 Blood Urea Nitrogen 40 H Creatinine 1.87 H Glucose Level 122 # Calcium Level 8.3 L Test 01/27/17 09:09 01/27/17 13:01 01/27/17 16:15 Bedside Glucose 134 151 150 Medications Medications Current Medications Ondansetron HCl (Zofran Inj) 4 mg Q6H PRN IV NAUSEA AND/OR VOMITING Last administered on 12/13/16 01:13; Admin Dose 4 MG; Start 12/02/16 at 22:30 Miscellaneous Information 1 ea NOTE XX ; Start 12/02/16 at 23:00 Glucose (Glutose) 15 gm Q15M PRN PO DECREASED GLUCOSE; Start 12/02/16 at 23:00 Glucose (Glutose) 22.5 gm Q15M PRN PO DECREASED GLUCOSE; Start 12/02/16 at 23: 00 Dextrose (D50w Syringe) 25 ml Q15M PRN IV DECREASED GLUCOSE Last administered on 01/26/17 05:21; Admin Dose 25 ML; Start 12/02/16 at 23:00 Dextrose (D50w Syringe) 50 ml Q15M PRN IV DECREASED GLUCOSE Last administered on 01/23/17 04:58; Admin Dose 50 ML; Start 12/02/16 at 23:00 Glucagon (Glucagen) 1 mg Q15M PRN IM DECREASED GLUCOSE; Start 12/02/16 at 23:00 Glucose (Glutose) 15 gm Q15M PRN BUCCAL DECREASED GLUCOSE; Start 12/02/16 at 23 :00 Gabapentin (Neurontin) 800 mg TID PO Last administered on 12/08/16 20:33; Admin Dose 800 MG; Start 12/03/16 at 09:00; Status Future Hold Benazepril HCl (Lotensin) 10 mg DAILY PO Last administered on 12/07/16 08:26; Admin Dose 10 MG; Start 12/04/16 at 09:00; Status Future Hold Acetaminophen (Tylenol Supp) 650 mg Q6H PRN [place] ELEVATED TEMPERATURE Last administered on 01/13/17 20:32; Admin Dose 650 MG; Start 12/09/16 at 17:00 Hydralazine HCl (Apresoline) 10 mg Q6H PRN IV SBP>150mm hg Last administered on 12/19/16 08:50; Admin Dose 10 MG; Start 12/11/16 at 10:30 Morphine Sulfate (morphine) 2 mg Q2H PRN IV PAIN LEVEL 4-7; Start 12/13/16 at 10 :00 Collagenase (Santyl) 1 applic DAILY TOP Last administered on 01/27/17 09:10; Admin Dose 1 APPLIC; Start 01/04/17 at 09:00 Metoprolol Tartrate (Lopressor) 5 mg Q4 PRN IV FOR H.R>110; Start 01/12/17 at 17:30 Acetaminophen (Tylenol Liquid) 650 mg Q6H PRN NGT PAIN AND OR ELEVATED TEMP; Start 01/13/17 at 23:30 Apixaban (Eliquis) 2.5 mg BID NGT Last administered on 01/27/17 09:09; Admin Dose 2.5 MG; Start 01/13/17 at 21:00; Status Future hold Acetaminophen/ Hydrocodone Bitart ([place] (5/325)) 1 tab Q6H PRN NGT PAIN LEVEL 4-7; Start 01/13/17 at 23:30 Levetiracetam (Keppra Liquid) 1,000 mg DAILY NGT Last administered on 09:08; Admin Dose 1,000 MG; Start 01/14/17 at 09:00 Meclizine HCl (Antivert) 25 mg TID PRN NGT dizziness; Start 01/13/17 at 20:00 Zolpidem Tartrate (Ambien) 5 mg HS PRN NGT INSOMNIA; Start 01/13/17 at 20:00 Aspirin (Aspirin) 81 mg DAILY NGT Last administered on 01/27/17 09:07; Admin Dose 81 MG; Start 01/14/17 at 09:00 Docusate Sodium (Colace Liquid Cup) 100 mg BID NGT Last administered on 09:08; Admin Dose 100 MG; Start 01/13/17 at 21:00 Pantoprazole (Protonix Iv) 40 mg DAILY@06 IV Last administered on 01/27/17 05: 29; Admin Dose 40 MG; Start 01/14/17 at 06:00 Amiodarone HCl 200 mg 200 mg Q8 NGT Last administered on 01/27/17 14:07; Admin Dose 200 MG; Start 01/17/17 at 14:00 Cefepime HCl 50 ml @ 100 mls/hr Q24H IVPB Last administered on 01/27/17 16:11 ; Admin Dose 100 MLS/HR; Start 01/20/17 at 17:00 Norepinephrine/ Dextrose (Levophed/D5W) 500 ml @ 1.87 mls/hr TITRATE IV ; Start 01/23/17 at 14:30 Metoprolol Tartrate (Lopressor) 12.5 mg BID NGT Last administered on 01/27/17 09:08; Admin Dose 12.5 MG; Start 01/24/17 at 21:00 Insulin Aspart (Novolog Insulin Pen) NOVOLOG *MODERATE* ALGORI... Q4 SC Last administered on 01/27/17 16:16; Admin Dose 2 UNIT; Start 01/25/17 at 13:00 Insulin Glargine (Lantus) 30 unit DAILY@20 SC Last administered on 6/14/17at 20 :41; Admin Dose 30 UNIT; Start 01/26/17 at 20:00 TASHIA MCGARRY MD Jan 27, 2017 16:44
[2017-01-27] MEDS: INSULIN GLARGINE [LANtus] 3 ML PEN SC SCH (20:29)
[2017-01-28] VITALS (45 sets, daily range): BP systolic 88–157; BP diastolic 46–78; PULSE 59–88; RESP 15–21
[2017-01-28] MEDS: INSULIN ASPART [NOVOLOG] 3 ML PEN SC SCH ×6 (00:39→20:41)
[2017-01-28] MEDS: ALBUTEROL 18 GM INHALER INH SCH ×4 (01:31→19:06)
[2017-01-28 05:08] LABS: ADD SCAN DIFF NO
[2017-01-28] MEDS ORDERED: NORepinephrine 8MG/250 ML (PMX 250 ML IV SCH (05:30)
[2017-01-28] MEDS ORDERED: MIDAZOLAM (DRIP) 50 mg/50 mL 50 ML IV SCH (05:30)
[2017-01-28 05:31] LABS: BASOPHILS % 0.1 % (0.0-2.0); EOSINOPHILS # 0.1 10^3/ul (0.0-0.5); EOSINOPHILS % 0.5 % (0.0-7.0); HEMATOCRIT 24.6 % (42.0-52.0); HEMOGLOBIN 7.9 g/dl (14.0-18.0); LYMPHOCYTES # 1.3 10^3/ul (0.8-2.9); LYMPHOCYTES % 12.5 % (15.0-51.0); MEAN CORPUSCULAR HEMOGLOBIN 29.9 pg (29.0-33.0); MEAN CORPUSCULAR HGB CONC 32.1 g/dl (32.0-37.0); MEAN CORPUSCULAR VOLUME 93.2 fl (82.0-101.0); MEAN PLATELET VOLUME 10.3 fl (7.4-10.4); MONOCYTE # 0.8 10^3/ul (0.3-0.9); MONOCYTES % 7.6 % (0.0-11.0); NEUTROPHIL # 7.9 10^3/ul (1.6-7.5); NEUTROPHILS % 78.6 % (39.0-77.0); PLATELET COUNT 156 10^3/UL (140-415); RED BLOOD COUNT 2.64 10^6/ul (4.70-6.10); RED CELL DISTRIBUTION WIDTH 15.2 % (11.5-14.5); WHITE BLOOD COUNT 10.1 10^3/ul (4.8-10.8)
[2017-01-28 06:00] LABS: ALBUMIN 3.9 g/dl (3.3-4.9); BILIRUBIN,INDIRECT 0.4 mg/dl (0-1.1); BILIRUBIN,TOTAL 0.4 mg/dl (0.2-1.3); CALCIUM 8.3 mg/dl (8.4-10.2); CREATININE 2.03 mg/dl (0.61-1.24); POTASSIUM 4.5 mmol/L (3.5-5.1); TOTAL PROTEIN 5.2 g/dl (6.1-8.1)
[2017-01-28] MEDS: AMIODARONE 200 MG TAB NGT SCH ×3 (06:00→22:46)
[2017-01-28] MEDS: PANTOPRAZOLE 40 MG INJ IV SCH (06:13)
[2017-01-28] MEDS: ACETAMINOPHEN 650MG/20.3ML CUP NGT PRN (06:13)
[2017-01-28 08:47] LABS: HEMATOCRIT 28.5 % (42.0-52.0); HEMOGLOBIN 9.2 g/dl (14.0-18.0)
[2017-01-28] MEDS: LEVETIRACETAM (100 MG/ML) 5ML CUP NGT SCH (09:07)
[2017-01-28] MEDS: DOCUSATE SODIUM 10 MG/ML (10ML CUP) NGT SCH ×2 (09:08→20:42)
[2017-01-28] MEDS: APIXABAN 5 MG TABLET NGT SCH ×2 (09:08→20:42)
[2017-01-28] MEDS: METOPROLOL 25 MG TAB NGT SCH ×2 (09:08→20:43)
[2017-01-28] MEDS: ASPIRIN 81 MG TAB NGT SCH (09:08)
[2017-01-28] MEDS: COLLAGENASE 30 GM TUBE TOP SCH (09:09)
--- NOTE | 2017-01-28 10:34 | CONS ---
Date/Time of Note Date/Time of Note DATE: 01/28/17 TIME: 10:31 Assessment/Plan Assessment/Plan Additional Assessment/Plan Ventilator setting; AC of 16, tidal volume 500, PEEP of 5, 30% FiO2. Assessment recommendations; 1. Patient admitted for recurrent respiratory failure to ICU because of flash pulmonary edema causing cardiac arrest, status post CPR with ensuing severe anoxic encephalopathy. 2. Status post tracheostomy and G-tube present. 3. Renal failure, on hemodialysis. 4. Questionable toe osteo-myelitis. Continue current supportive care. Patient can be transferred to rehab center. Prognosis remains poor. Consultation Date/Type/Reason Admit Date/Time Dec 02, 2016 at 21:01 Initial Consult Date 12/03/16 Type of Consultation: Pulmonary/critical care Referring Provider: VIET PARKER MD 24 HR Interval Summary Free Text/Dictation Patient condition remains unchanged. Remains completely unresponsive. Patient however has remained hemodynamically stable. No untoward events reported. General exam; elderly male, on ventilator via tracheostomy, unresponsive. Currently in no distress. Exam/Review of Systems Vital Signs Vitals Vital Signs Date Time Temp Pulse Resp B/P Pulse Ox O2 Delivery O2 Flow Rate FiO2 01/28/17 07:30 72 01/28/17 07:30 18 01/28/17 07:16 100 30 01/28/17 06:00 157/63 Mechanical Ventilator 01/28/17 04:00 99.9 Intake and Output 01/27/17 01/27/17 01/28/17 15:00 23:00 07:00 Intake Total 240 ml 350 ml 310 ml Output Total 75 ml Balance 165 ml 350 ml 310 ml Exam HEENT examination; supple neck, no JVD. No lymphadenopathy. Midline trachea. No thyromegaly. Patient is edentulous. Tracheostomy in place with clean insertion site. Chest examination; clear to auscultation. S1-S2 audible, no murmurs. Regular rhythm. Abdomen examination; soft, G-tube in place. No organomegaly. Bowel sounds audible. Extremity examination; no peripheral edema. B[employer]LE TE[employer]ER examination; patient remains unresponsive. Results Result Diagram: 01/28/17 0815 01/28/17 0428 Results 24 hrs Laboratory Tests Test 01/27/17 13:01 01/27/17 16:15 01/27/17 20:24 01/27/17 21:44 Bedside Glucose 151 150 158 145 Test 01/28/17 00:35 01/28/17 04:28 01/28/17 04:46 01/28/17 08:15 Bedside Glucose 143 119 White Blood Count 10.1 Red Blood Count 2.64 L Hemoglobin 7.9 L 9.2 L Hematocrit 24.6 L 28.5 L Mean Corpuscular Volume 93.2 Mean Corpuscular Hemoglobin 29.9 Mean Corpuscular Hemoglobin Concent 32.1 Red Cell Distribution Width 15.2 H Platelet Count 156 Mean Platelet Volume 10.3 Neutrophils % 78.6 H Lymphocytes % 12.5 L Monocytes % 7.6 Eosinophils % 0.5 Basophils % 0.1 Nucleated Red Blood Cells % 0.0 Neutrophils # 7.9 H Lymphocytes # 1.3 Monocytes # 0.8 Eosinophils # 0.1 Basophils # 0.0 Nucleated Red Blood Cells # 0.0 Sodium Level 146 H Potassium Level 4.5 Chloride Level 105 Carbon Dioxide Level 31 Anion Gap 15 Blood Urea Nitrogen 52 H Creatinine 2.03 H Glucose Level 118 Calcium Level 8.3 L Total Bilirubin 0.4 Direct Bilirubin 0.00 Indirect Bilirubin 0.4 Aspartate Amino Transf (AST/SGOT) 33 Alanine Aminotransferase (ALT/SGPT) 24 Alkaline Phosphatase 85 Total Protein 5.2 L Albumin 3.9 Globulin 1.30 Albumin/Globulin Ratio 3.00 Test 01/28/17 09:07 Bedside Glucose 174 Medications Medications Current Medications Ondansetron HCl (Zofran Inj) 4 mg Q6H PRN IV NAUSEA AND/OR VOMITING Last administered on 12/13/16 01:13; Admin Dose 4 MG; Start 12/02/16 at 22:30 Miscellaneous Information 1 ea NOTE XX ; Start 12/02/16 at 23:00 Glucose (Glutose) 15 gm Q15M PRN PO DECREASED GLUCOSE; Start 12/02/16 at 23:00 Glucose (Glutose) 22.5 gm Q15M PRN PO DECREASED GLUCOSE; Start 12/02/16 at 23: 00 Dextrose (D50w Syringe) 25 ml Q15M PRN IV DECREASED GLUCOSE Last administered on 01/26/17 05:21; Admin Dose 25 ML; Start 12/02/16 at 23:00 Dextrose (D50w Syringe) 50 ml Q15M PRN IV DECREASED GLUCOSE Last administered on 01/23/17 04:58; Admin Dose 50 ML; Start 12/02/16 at 23:00 Glucagon (Glucagen) 1 mg Q15M PRN IM DECREASED GLUCOSE; Start 12/02/16 at 23:00 Glucose (Glutose) 15 gm Q15M PRN BUCCAL DECREASED GLUCOSE; Start 12/02/16 at 23 :00 Gabapentin (Neurontin) 800 mg TID PO Last administered on 12/08/16 20:33; Admin Dose 800 MG; Start 12/03/16 at 09:00; Status Future Hold Benazepril HCl (Lotensin) 10 mg DAILY PO Last administered on 12/07/16 08:26; Admin Dose 10 MG; Start 12/04/16 at 09:00; Status Future Hold Acetaminophen (Tylenol Supp) 650 mg Q6H PRN [place] ELEVATED TEMPERATURE Last administered on 01/13/17 20:32; Admin Dose 650 MG; Start 12/09/16 at 17:00 Hydralazine HCl (Apresoline) 10 mg Q6H PRN IV SBP>150mm hg Last administered on 12/19/16 08:50; Admin Dose 10 MG; Start 12/11/16 at 10:30 Morphine Sulfate (morphine) 2 mg Q2H PRN IV PAIN LEVEL 4-7; Start 12/13/16 at 10 :00 Collagenase (Santyl) 1 applic DAILY TOP Last administered on 01/28/17 09:09; Admin Dose 1 APPLIC; Start 01/04/17 at 09:00 Metoprolol Tartrate (Lopressor) 5 mg Q4 PRN IV FOR H.R>110; Start 01/12/17 at 17:30 Acetaminophen (Tylenol Liquid) 650 mg Q6H PRN NGT PAIN AND OR ELEVATED TEMP Last administered on 01/28/17 06:13; Admin Dose 650 MG; Start 01/13/17 at 23:30 Apixaban (Eliquis) 2.5 mg BID NGT Last administered on 01/28/17 09:08; Admin Dose 2.5 MG; Start 01/13/17 at 21:00; Status Future hold Acetaminophen/ Hydrocodone Bitart ([place] (5/325)) 1 tab Q6H PRN NGT PAIN LEVEL 4-7; Start 01/13/17 at 23:30 Levetiracetam (Keppra Liquid) 1,000 mg DAILY NGT Last administered on 09:07; Admin Dose 1,000 MG; Start 01/14/17 at 09:00 Meclizine HCl (Antivert) 25 mg TID PRN NGT dizziness; Start 01/13/17 at 20:00 Zolpidem Tartrate (Ambien) 5 mg HS PRN NGT INSOMNIA; Start 01/13/17 at 20:00 Aspirin (Aspirin) 81 mg DAILY NGT Last administered on 01/28/17 09:08; Admin Dose 81 MG; Start 01/14/17 at 09:00 Docusate Sodium (Colace Liquid Cup) 100 mg BID NGT Last administered on 09:08; Admin Dose 100 MG; Start 01/13/17 at 21:00 Pantoprazole (Protonix Iv) 40 mg DAILY@06 IV Last administered on 01/28/17 06: 13; Admin Dose 40 MG; Start 01/14/17 at 06:00 Amiodarone HCl 200 mg 200 mg Q8 NGT Last administered on 01/27/17 23:26; Admin Dose 200 MG; Start 01/17/17 at 14:00 Cefepime HCl 50 ml @ 100 mls/hr Q24H IVPB Last administered on 01/27/17 16:11 ; Admin Dose 100 MLS/HR; Start 01/20/17 at 17:00 Norepinephrine/ Dextrose (Levophed/D5W) 500 ml @ 1.87 mls/hr TITRATE IV ; Start 01/23/17 at 14:30 Metoprolol Tartrate (Lopressor) 12.5 mg BID NGT Last administered on 01/28/17 09:08; Admin Dose 12.5 MG; Start 01/24/17 at 21:00 Insulin Aspart (Novolog Insulin Pen) NOVOLOG *MODERATE* ALGORI... Q4 SC Last administered on 01/28/17 09:12; Admin Dose 2 UNIT; Start 01/25/17 at 13:00 Insulin Glargine (Lantus) 30 unit DAILY@20 SC Last administered on 01/27/17 20 :29; Admin Dose 30 UNIT; Start 01/26/17 at 20:00 IKE MULLER Jan 28, 2017 10:34
--- NOTE | 2017-01-28 14:06 | PN ---
Date/Time of Note Date/Time of Note DATE: 01/28/17 TIME: 14:01 Assessment/Plan VTE Prophylaxis VTE Prophylaxis Intervention: SCD's Lines/Catheters IV [facility]from [facility] [place] [facility] Urinary Cath still in place: No Assessment/Plan Chief Complaint/Hosp Course Patient has normal bleeding from tracheostomy site, remains hemodynamically stable, status post hemodialysis was removal of 2.5 L of fluids, repeat hemoglobin after dialysis is 9.2. ASSESSMENT AND PLAN: - Dysphagia, pending G-tube placement. Dr. Sorensen is following in gastroenterology consultation. - Anemia of acute blood loss, today's hemoglobin is 9.2. Continue to monitor daily H&H. - Status post tracheostomy by Dr. Nichols on 01/23. - Anoxic encephalopathy. - Status post cardiopulmonary arrest on 12/09/2016 and 01/08/2017. Continue supportive care. Continue ventilatory support. Dr. Rivera is following in pulmonology consultation. - Possible tracheobronchitis/ pneumonia. Sputum cultures positive for Pseudomonas. Dr. Wilson's group is following in infectious disease consultation. Continued on cefepime. - Acute kidney injury on chronic kidney disease which progressed to end-stage renal disease. Dr. Remy is following in nephrology consultation. Continue hemodialysis per nephrology. - Paroxysmal atrial fibrillation. The patient is continued on aspirin. Dr. Cobian is following in cardiology consultation. Eliquis is held. - Diabetes mellitus type 2. Continue patient's Lantus with NovoLog sliding scale coverage with Accu-Cheks q.4h while patient on nasogastric tube feeding. - Diabetic foot ulcer. Continue current wound care. - Peripheral arterial disease - Osteomyelitis of the distal phalanx of the left great toe and left proximal phalanx. Completed a course of antibiotics for osteomyelitis. Further recommendations based on clinical course. Plan of care discussed with Dr. Heredia. Problems: Exam/Review of Systems Vital Signs Vitals Vital Signs Date Time Temp Pulse Resp B/P Pulse Ox O2 Delivery O2 Flow Rate FiO2 01/28/17 13:34 65 16 100 30 01/28/17 06:00 157/63 Mechanical Ventilator 01/28/17 04:00 99.9 Intake and Output 01/27/17 01/27/17 01/28/17 15:00 23:00 07:00 Intake Total 240 ml 350 ml 310 ml Output Total 75 ml Balance 165 ml 350 ml 310 ml Exam Constitutional: frail, non-verbal Head: normocephalic Eyes: other (NG tube) Neck: other (Tracheostomy), supple Respiratory: diminished breath sounds Cardiovascular: nl pulses Gastrointestinal: non-tender, soft Extremities: normal pulses Neurological: unresponsive Results Result Diagram: 01/28/17 0815 01/28/17 0428 Results 24 hrs Laboratory Tests Test 01/27/17 16:15 01/27/17 20:24 01/27/17 21:44 01/28/17 00:35 Bedside Glucose 150 158 145 143 Test 01/28/17 04:28 01/28/17 04:46 01/28/17 08:15 01/28/17 09:07 White Blood Count 10.1 Red Blood Count 2.64 L Hemoglobin 7.9 L 9.2 L Hematocrit 24.6 L 28.5 L Mean Corpuscular Volume 93.2 Mean Corpuscular Hemoglobin 29.9 Mean Corpuscular Hemoglobin Concent 32.1 Red Cell Distribution Width 15.2 H Platelet Count 156 Mean Platelet Volume 10.3 Neutrophils % 78.6 H Lymphocytes % 12.5 L Monocytes % 7.6 Eosinophils % 0.5 Basophils % 0.1 Nucleated Red Blood Cells % 0.0 Neutrophils # 7.9 H Lymphocytes # 1.3 Monocytes # 0.8 Eosinophils # 0.1 Basophils # 0.0 Nucleated Red Blood Cells # 0.0 Sodium Level 146 H Potassium Level 4.5 Chloride Level 105 Carbon Dioxide Level 31 Anion Gap 15 Blood Urea Nitrogen 52 H Creatinine 2.03 H Glucose Level 118 Calcium Level 8.3 L Total Bilirubin 0.4 Direct Bilirubin 0.00 Indirect Bilirubin 0.4 Aspartate Amino Transf (AST/SGOT) 33 Alanine Aminotransferase (ALT/SGPT) 24 Alkaline Phosphatase 85 Total Protein 5.2 L Albumin 3.9 Globulin 1.30 Albumin/Globulin Ratio 3.00 Bedside Glucose 119 174 Test 01/28/17 12:57 Bedside Glucose 178 Medications Medications Current Medications Ondansetron HCl (Zofran Inj) 4 mg Q6H PRN IV NAUSEA AND/OR VOMITING Last administered on 12/13/16t 01:13; Admin Dose 4 MG; Start 12/02/16 at 22:30 Miscellaneous Information 1 ea NOTE XX ; Start 12/02/16 at 23:00 Glucose (Glutose) 15 gm Q15M PRN PO DECREASED GLUCOSE; Start 12/02/16 at 23:00 Glucose (Glutose) 22.5 gm Q15M PRN PO DECREASED GLUCOSE; Start 12/02/16 at 23: 00 Dextrose (D50w Syringe) 25 ml Q15M PRN IV DECREASED GLUCOSE Last administered on 01/26/17 05:21; Admin Dose 25 ML; Start 12/02/16 at 23:00 Dextrose (D50w Syringe) 50 ml Q15M PRN IV DECREASED GLUCOSE Last administered on 01/23/17 04:58; Admin Dose 50 ML; Start 12/02/16 at 23:00 Glucagon (Glucagen) 1 mg Q15M PRN IM DECREASED GLUCOSE; Start 12/02/16 at 23:00 Glucose (Glutose) 15 gm Q15M PRN BUCCAL DECREASED GLUCOSE; Start 12/02/16 at 23 :00 Gabapentin (Neurontin) 800 mg TID PO Last administered on 12/08/16 20:33; Admin Dose 800 MG; Start 12/03/16 at 09:00; Status Future Hold Benazepril HCl (Lotensin) 10 mg DAILY PO Last administered on 12/07/16 08:26; Admin Dose 10 MG; Start 12/04/16 at 09:00; Status Future Hold Acetaminophen (Tylenol Supp) 650 mg Q6H PRN IN ELEVATED TEMPERATURE Last administered on 01/13/17 20:32; Admin Dose 650 MG; Start 12/09/16 at 17:00 Hydralazine HCl (Apresoline) 10 mg Q6H PRN IV SBP>150mm hg Last administered on 12/19/16 08:50; Admin Dose 10 MG; Start 12/11/16 at 10:30 Morphine Sulfate (morphine) 2 mg Q2H PRN IV PAIN LEVEL 4-7; Start 12/13/16 at 10 :00 Collagenase (Santyl) 1 applic DAILY TOP Last administered on 01/28/17 09:09; Admin Dose 1 APPLIC; Start 01/04/17 at 09:00 Metoprolol Tartrate (Lopressor) 5 mg Q4 PRN IV FOR H.R>110; Start 01/12/17 at 17:30 Acetaminophen (Tylenol Liquid) 650 mg Q6H PRN NGT PAIN AND OR ELEVATED TEMP Last administered on 01/28/17 06:13; Admin Dose 650 MG; Start 01/13/17 at 23:30 Apixaban (Eliquis) 2.5 mg BID NGT Last administered on 01/28/17 09:08; Admin Dose 2.5 MG; Start 01/13/17 at 21:00; Status Future hold Acetaminophen/ Hydrocodone Bitart ([place] (5/325)) 1 tab Q6H PRN NGT PAIN LEVEL 4-7; Start 01/13/17 at 23:30 Levetiracetam (Keppra Liquid) 1,000 mg DAILY NGT Last administered on 09:07; Admin Dose 1,000 MG; Start 01/14/17 at 09:00 Meclizine HCl (Antivert) 25 mg TID PRN NGT dizziness; Start 01/13/17 at 20:00 Zolpidem Tartrate (Ambien) 5 mg HS PRN NGT INSOMNIA; Start 01/13/17 at 20:00 Aspirin (Aspirin) 81 mg DAILY NGT Last administered on 01/28/17 09:08; Admin Dose 81 MG; Start 01/14/17 at 09:00 Docusate Sodium (Colace Liquid Cup) 100 mg BID NGT Last administered on 09:08; Admin Dose 100 MG; Start 01/13/17 at 21:00 Pantoprazole (Protonix Iv) 40 mg DAILY@06 IV Last administered on 01/28/17 06: 13; Admin Dose 40 MG; Start 01/14/17 at 06:00 Amiodarone HCl 200 mg 200 mg Q8 NGT Last administered on 01/27/17 23:26; Admin Dose 200 MG; Start 01/17/17 at 14:00 Cefepime HCl 50 ml @ 100 mls/hr Q24H IVPB Last administered on 01/27/17 16:11 ; Admin Dose 100 MLS/HR; Start 01/20/17 at 17:00 Norepinephrine/ Dextrose (Levophed/D5W) 500 ml @ 1.87 mls/hr TITRATE IV ; Start 01/23/17 at 14:30 Metoprolol Tartrate (Lopressor) 12.5 mg BID NGT Last administered on 01/28/17 09:08; Admin Dose 12.5 MG; Start 01/24/17 at 21:00 Insulin Aspart (Novolog Insulin Pen) NOVOLOG *MODERATE* ALGORI... Q4 SC Last administered on 01/28/17 13:03; Admin Dose 2 UNIT; Start 01/25/17 at 13:00 Insulin Glargine (Lantus) 30 unit DAILY@20 SC Last administered on 01/27/17 20 :29; Admin Dose 30 UNIT; Start 01/26/17 at 20:00 KIMBERLY NOYOLA Jan 28, 2017 14:06
--- NOTE | 2017-01-28 14:12 | CONS ---
Date/Time of Note Date/Time of Note DATE: 01/28/17 TIME: 14:08 Assessment/Plan Assessment/Plan Chief Complaint/Hosp Course IMPRESSION: 1. Atrial fibrillation-Having episodes of PAF with reasonable rate control 2. Hypertension-very labile 3. Abnormal electrocardiogram with inferolateral T-wave inversions. 4. Respiratory failure-s/p trach placement 5. Nonhealing toe ulceration-vascular following 6. Peripheral arterial disease by arterial ultrasound of the lower extremities this admission. 7. Diabetes mellitus. 8. Fevers. 9. Positive troponin-downtrended 10.Bradycardia-improved/stable 11.-severe by echo 12.Cardiomyopathy-EF 40-45% by echo/36% by stress with no ischemia but positive scar. EF <30% by echo post arrest 14.Encephalopathy-anoxic 15. s/p cardiopulmonary arrest 01/08 Recc: -Tele -serial ecg -HD for volume removal as tolerated -Continue baby asa as tolerated only -eliquis to be held in anticiation of possible G tube placement and due to trach site bleeding -Continue PO amio in attempt to maintain SR -Continue BB as tolerated only following HR/BP closely -Will hold on afterload reduction given severe and thus fixed afterload at valve orifice Problems: Consultation Date/Type/Reason Admit Date/Time Dec 02, 2016 at 21:01 Initial Consult Date 12/03/16 Type of Consultation: Cardiology Reason for Consultation PAF//cardiomyopathy/CHF Referring Provider: VIET PARKER MD Exam/Review of Systems Vital Signs Vitals Vital Signs Date Time Temp Pulse Resp B/P Pulse Ox O2 Delivery O2 Flow Rate FiO2 01/28/17 13:34 65 16 100 30 01/28/17 06:00 157/63 Mechanical Ventilator 01/28/17 04:00 99.9 Intake and Output 01/27/17 01/27/17 01/28/17 15:00 23:00 07:00 Intake Total 240 ml 350 ml 310 ml Output Total 75 ml Balance 165 ml 350 ml 310 ml Exam Review of Systems: CONSTITUTIONAL: No fevers, chills. PULMONARY: trached CARDIOVASCULAR: No obvious chest pain/palpitations GASTROINTESTINAL: No nausea/vomiting. GENITOURINARY: No hematuria/dysuria. MUSCULOSKELETAL: No myagias/arthalgias. PSYCHIATRIC: The patient denies depression. NEUROLOGIC: encephalopathy Constitutional: other (sleeping) Psych: no complaints Head: normocephalic ENMT: mucosa pink and moist Neck: jvd (8-9 cm water), supple Respiratory: diminished breath sounds (at bases/B) Cardiovascular: regular rate and rhythm Gastrointestinal: non-tender, soft Musculoskeletal: muscle tone (normal) Extremities: edema Neurological: confused, lethargic Results Result Diagram: 01/28/17 0815 01/28/17 0428 Results 24 hrs Laboratory Tests Test 01/27/17 16:15 01/27/17 20:24 01/27/17 21:44 01/28/17 00:35 Bedside Glucose 150 158 145 143 Test 01/28/17 04:28 01/28/17 04:46 01/28/17 08:15 01/28/17 09:07 White Blood Count 10.1 Red Blood Count 2.64 L Hemoglobin 7.9 L 9.2 L Hematocrit 24.6 L 28.5 L Mean Corpuscular Volume 93.2 Mean Corpuscular Hemoglobin 29.9 Mean Corpuscular Hemoglobin Concent 32.1 Red Cell Distribution Width 15.2 H Platelet Count 156 Mean Platelet Volume 10.3 Neutrophils % 78.6 H Lymphocytes % 12.5 L Monocytes % 7.6 Eosinophils % 0.5 Basophils % 0.1 Nucleated Red Blood Cells % 0.0 Neutrophils # 7.9 H Lymphocytes # 1.3 Monocytes # 0.8 Eosinophils # 0.1 Basophils # 0.0 Nucleated Red Blood Cells # 0.0 Sodium Level 146 H Potassium Level 4.5 Chloride Level 105 Carbon Dioxide Level 31 Anion Gap 15 Blood Urea Nitrogen 52 H Creatinine 2.03 H Glucose Level 118 Calcium Level 8.3 L Total Bilirubin 0.4 Direct Bilirubin 0.00 Indirect Bilirubin 0.4 Aspartate Amino Transf (AST/SGOT) 33 Alanine Aminotransferase (ALT/SGPT) 24 Alkaline Phosphatase 85 Total Protein 5.2 L Albumin 3.9 Globulin 1.30 Albumin/Globulin Ratio 3.00 Bedside Glucose 119 174 Test 01/28/17 12:57 Bedside Glucose 178 Medications Medications Current Medications Ondansetron HCl (Zofran Inj) 4 mg Q6H PRN IV NAUSEA AND/OR VOMITING Last administered on 12/13/16t 01:13; Admin Dose 4 MG; Start 12/02/16 at 22:30 Miscellaneous Information 1 ea NOTE XX ; Start 12/02/16 at 23:00 Glucose (Glutose) 15 gm Q15M PRN PO DECREASED GLUCOSE; Start 12/02/16 at 23:00 Glucose (Glutose) 22.5 gm Q15M PRN PO DECREASED GLUCOSE; Start 12/02/16 at 23: 00 Dextrose (D50w Syringe) 25 ml Q15M PRN IV DECREASED GLUCOSE Last administered on 01/26/17 05:21; Admin Dose 25 ML; Start 12/02/16 at 23:00 Dextrose (D50w Syringe) 50 ml Q15M PRN IV DECREASED GLUCOSE Last administered on 01/23/17 04:58; Admin Dose 50 ML; Start 12/02/16 at 23:00 Glucagon (Glucagen) 1 mg Q15M PRN IM DECREASED GLUCOSE; Start 12/02/16 at 23:00 Glucose (Glutose) 15 gm Q15M PRN BUCCAL DECREASED GLUCOSE; Start 12/02/16 at 23 :00 Gabapentin (Neurontin) 800 mg TID PO Last administered on 12/08/16 20:33; Admin Dose 800 MG; Start 12/03/16 at 09:00; Status Future Hold Benazepril HCl (Lotensin) 10 mg DAILY PO Last administered on 12/07/16 08:26; Admin Dose 10 MG; Start 12/04/16 at 09:00; Status Future Hold Acetaminophen (Tylenol Supp) 650 mg Q6H PRN [place] ELEVATED TEMPERATURE Last administered on 01/13/17 20:32; Admin Dose 650 MG; Start 12/09/16 at 17:00 Hydralazine HCl (Apresoline) 10 mg Q6H PRN IV SBP>150mm hg Last administered on 12/19/16 08:50; Admin Dose 10 MG; Start 12/11/16 at 10:30 Morphine Sulfate (morphine) 2 mg Q2H PRN IV PAIN LEVEL 4-7; Start 12/13/16 at 10 :00 Collagenase (Santyl) 1 applic DAILY TOP Last administered on 01/28/17 09:09; Admin Dose 1 APPLIC; Start 01/04/17 at 09:00 Metoprolol Tartrate (Lopressor) 5 mg Q4 PRN IV FOR H.R>110; Start 01/12/17 at 17:30 Acetaminophen (Tylenol Liquid) 650 mg Q6H PRN NGT PAIN AND OR ELEVATED TEMP Last administered on 01/28/17 06:13; Admin Dose 650 MG; Start 01/13/17 at 23:30 Apixaban (Eliquis) 2.5 mg BID NGT Last administered on 01/28/17 09:08; Admin Dose 2.5 MG; Start 01/13/17 at 21:00; Status Future hold Acetaminophen/ Hydrocodone Bitart ([place] (5/325)) 1 tab Q6H PRN NGT PAIN LEVEL 4-7; Start 01/13/17 at 23:30 Levetiracetam (Keppra Liquid) 1,000 mg DAILY NGT Last administered on 09:07; Admin Dose 1,000 MG; Start 01/14/17 at 09:00 Meclizine HCl (Antivert) 25 mg TID PRN NGT dizziness; Start 01/13/17 at 20:00 Zolpidem Tartrate (Ambien) 5 mg HS PRN NGT INSOMNIA; Start 01/13/17 at 20:00 Aspirin (Aspirin) 81 mg DAILY NGT Last administered on 01/28/17 09:08; Admin Dose 81 MG; Start 01/14/17 at 09:00 Docusate Sodium (Colace Liquid Cup) 100 mg BID NGT Last administered on 09:08; Admin Dose 100 MG; Start 01/13/17 at 21:00 Pantoprazole (Protonix Iv) 40 mg DAILY@06 IV Last administered on 01/28/17 06: 13; Admin Dose 40 MG; Start 01/14/17 at 06:00 Amiodarone HCl 200 mg 200 mg Q8 NGT Last administered on 01/27/17 23:26; Admin Dose 200 MG; Start 01/17/17 at 14:00 Cefepime HCl 50 ml @ 100 mls/hr Q24H IVPB Last administered on 01/27/17 16:11 ; Admin Dose 100 MLS/HR; Start 01/20/17 at 17:00 Norepinephrine/ Dextrose (Levophed/D5W) 500 ml @ 1.87 mls/hr TITRATE IV ; Start 01/23/17 at 14:30 Metoprolol Tartrate (Lopressor) 12.5 mg BID NGT Last administered on 01/28/17 09:08; Admin Dose 12.5 MG; Start 01/24/17 at 21:00 Insulin Aspart (Novolog Insulin Pen) NOVOLOG *MODERATE* ALGORI... Q4 SC Last administered on 01/28/17 13:03; Admin Dose 2 UNIT; Start 01/25/17 at 13:00 Insulin Glargine (Lantus) 30 unit DAILY@20 SC Last administered on 01/27/17 20 :29; Admin Dose 30 UNIT; Start 01/26/17 at 20:00 VICENTE LESLIE Jan 28, 2017 14:12
--- NOTE | 2017-01-28 14:57 | CONS ---
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 Blood cultures from HD catheter on 12/13/2016 are negative to date. 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 MRI on 12/06/2016 and bone scan on showed 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 and left fourth proximal phalanx. superficial swab grew inna only. At present, no e/o persistent infection - recurrent pleural effusion - s/p right pleural effusion s/p thoracentesis with .9L removed on 12/16/2016; ( Note: there is no pleural fluid cx since orders were placed after Right thoracentesis, and Left thoracentesis was not performed on 12/17/16 d/t insufficient fluid) - funguria - ARANZA on CKD that progressed to ESRD and started on HD from 12/09/2016 - oliguria - improved - A fib -> PAF - small nonreversible perfusion abnormality in the inferoapical and inferior carver; EF 36% per Lexiscan 12/24/2016 - severe , EF 40-45% per TTE 12/17/16 - DM - Hgb A1c 8.7% - HTN associated with DM - recurrent episodes of respiratory failure - acute encephalopathy with anoxic brain injury - stage 3 decubitus ulcer of coccyx without evidence of infection - urinary retention - improved - VDRF s/p tracheostomy 01/23/2017 NOTE: Pt completed 6 weeks (12/03/2016-01/15/2017) of antibiotics to treat 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 and left fourth proximal phalanx ; s/p pip/tazo 12/03/16-01/08/17; linezolid 01/08/17-01/20/17; caspofungin 01/12/17-01/21/17; cefepime 01/15/17-01/28/17. recommendations: - complete 14 days of renally dosed cefepime for pseudomonas (01/15/2017-) today then monitor closely off abx - continue local wound care of L 1st toe and coccyx Management d/w [employer] [facility] [employer] Gamez and Dr. Wilson Critical care time spent: 30 min Problems: Consultation Date/Type/Reason Admit Date/Time Dec 02, 2016 at 21:01 Initial Consult Date 12/03/16 Type of Consultation: Infectous Disease Referring Provider: VIET PARKER MD 24 HR Interval Summary Free Text/Dictation No further bleeding noted from trach; still on Eliquis; G tube placement is pending per d/w nursing staff. Unable to perform ROS due to encephalopathy. Subjective hx not possible: pt non-verbal Exam/Review of Systems Vital Signs Vitals Vital Signs Date Time Temp Pulse Resp B/P Pulse Ox O2 Delivery O2 Flow Rate FiO2 01/28/17 13:34 65 16 100 30 01/28/17 06:00 157/63 Mechanical Ventilator 01/28/17 04:00 99.9 Intake and Output 01/27/17 01/27/17 01/28/17 14:59 22:59 06:59 Intake Total 270 ml 320 ml 340 ml Output Total 75 ml Balance 195 ml 320 ml 340 ml Exam Constitutional: frail, chronically debilitated, non-verbal Head: atraumatic, normocephalic Eyes: nl conjunctiva, nl lids, nl sclera ENMT: intubated, nl external ears & nose, other (NGT with tube feeds intact) Neck: other (trach in place; R IJ permacath with no e/o infection) Respiratory: clear to auscultation anteriorly Cardiovascular: regular rate and rhythm, systolic murmur Gastrointestinal: non-tender, soft Genitourinary - Male: other (incontinent of urine) Musculoskeletal: nl extremities to inspection Extremities: No clubbing, cyanosis or edema Neurological: unresponsive Skin: other (See nurse note for details - stage 3 coccygeal decub), rash or lesions (eschar on plantar aspect of L great toe - dressing c/d/i) Results Result Diagram: 01/28/17 0815 01/28/17 0428 Results 24 hrs Laboratory Tests Test 01/27/17 16:15 01/27/17 20:24 01/27/17 21:44 01/28/17 00:35 Bedside Glucose 150 158 145 143 Test 01/28/17 04:28 01/28/17 04:46 01/28/17 08:15 01/28/17 09:07 White Blood Count 10.1 Red Blood Count 2.64 L Hemoglobin 7.9 L 9.2 L Hematocrit 24.6 L 28.5 L Mean Corpuscular Volume 93.2 Mean Corpuscular Hemoglobin 29.9 Mean Corpuscular Hemoglobin Concent 32.1 Red Cell Distribution Width 15.2 H Platelet Count 156 Mean Platelet Volume 10.3 Neutrophils % 78.6 H Lymphocytes % 12.5 L Monocytes % 7.6 Eosinophils % 0.5 Basophils % 0.1 Nucleated Red Blood Cells % 0.0 Neutrophils # 7.9 H Lymphocytes # 1.3 Monocytes # 0.8 Eosinophils # 0.1 Basophils # 0.0 Nucleated Red Blood Cells # 0.0 Sodium Level 146 H Potassium Level 4.5 Chloride Level 105 Carbon Dioxide Level 31 Anion Gap 15 Blood Urea Nitrogen 52 H Creatinine 2.03 H Glucose Level 118 Calcium Level 8.3 L Total Bilirubin 0.4 Direct Bilirubin 0.00 Indirect Bilirubin 0.4 Aspartate Amino Transf (AST/SGOT) 33 Alanine Aminotransferase (ALT/SGPT) 24 Alkaline Phosphatase 85 Total Protein 5.2 L Albumin 3.9 Globulin 1.30 Albumin/Globulin Ratio 3.00 Bedside Glucose 119 174 Test 01/28/17 12:57 Bedside Glucose 178 Medications Medications Current Medications Ondansetron HCl (Zofran Inj) 4 mg Q6H PRN IV NAUSEA AND/OR VOMITING Last administered on 12/13/16 01:13; Admin Dose 4 MG; Start 12/02/16 at 22:30 Miscellaneous Information 1 ea NOTE XX ; Start 12/02/16 at 23:00 Glucose (Glutose) 15 gm Q15M PRN PO DECREASED GLUCOSE; Start 12/02/16 at 23:00 Glucose (Glutose) 22.5 gm Q15M PRN PO DECREASED GLUCOSE; Start 12/02/16 at 23: 00 Dextrose (D50w Syringe) 25 ml Q15M PRN IV DECREASED GLUCOSE Last administered on 01/26/17 05:21; Admin Dose 25 ML; Start 12/02/16 at 23:00 Dextrose (D50w Syringe) 50 ml Q15M PRN IV DECREASED GLUCOSE Last administered on 01/23/17 04:58; Admin Dose 50 ML; Start 12/02/16 at 23:00 Glucagon (Glucagen) 1 mg Q15M PRN IM DECREASED GLUCOSE; Start 12/02/16 at 23:00 Glucose (Glutose) 15 gm Q15M PRN BUCCAL DECREASED GLUCOSE; Start 12/02/16 at 23 :00 Gabapentin (Neurontin) 800 mg TID PO Last administered on 12/08/16 20:33; Admin Dose 800 MG; Start 12/03/16 at 09:00; Status Future Hold Benazepril HCl (Lotensin) 10 mg DAILY PO Last administered on 12/07/16 08:26; Admin Dose 10 MG; Start 12/04/16 at 09:00; Status Future Hold Acetaminophen (Tylenol Supp) 650 mg Q6H PRN [place] ELEVATED TEMPERATURE Last administered on 01/13/17 20:32; Admin Dose 650 MG; Start 12/09/16 at 17:00 Hydralazine HCl (Apresoline) 10 mg Q6H PRN IV SBP>150mm hg Last administered on 12/19/16 08:50; Admin Dose 10 MG; Start 12/11/16 at 10:30 Morphine Sulfate (morphine) 2 mg Q2H PRN IV PAIN LEVEL 4-7; Start 12/13/16 at 10 :00 Collagenase (Santyl) 1 applic DAILY TOP Last administered on 01/28/17 09:09; Admin Dose 1 APPLIC; Start 01/04/17 at 09:00 Metoprolol Tartrate (Lopressor) 5 mg Q4 PRN IV FOR H.R>110; Start 01/12/17 at 17:30 Acetaminophen (Tylenol Liquid) 650 mg Q6H PRN NGT PAIN AND [place] ELEVATED TEMP Last administered on 01/28/17 06:13; Admin Dose 650 MG; Start 01/13/17 at 23:30 Apixaban (Eliquis) 2.5 mg BID NGT Last administered on 01/28/17 09:08; Admin Dose 2.5 MG; Start 01/13/17 at 21:00; Status Future hold Acetaminophen/ Hydrocodone Bitart ([place] (5/325)) 1 tab Q6H PRN NGT PAIN LEVEL 4-7; Start 01/13/17 at 23:30 Levetiracetam (Keppra Liquid) 1,000 mg DAILY NGT Last administered on 09:07; Admin Dose 1,000 MG; Start 01/14/17 at 09:00 Meclizine HCl (Antivert) 25 mg TID PRN NGT dizziness; Start 01/13/17 at 20:00 Zolpidem Tartrate (Ambien) 5 mg HS PRN NGT INSOMNIA; Start 01/13/17 at 20:00 Aspirin (Aspirin) 81 mg DAILY NGT Last administered on 01/28/17 09:08; Admin Dose 81 MG; Start 01/14/17 at 09:00 Docusate Sodium (Colace Liquid Cup) 100 mg BID NGT Last administered on 09:08; Admin Dose 100 MG; Start 01/13/17 at 21:00 Pantoprazole (Protonix Iv) 40 mg DAILY@06 IV Last administered on 01/28/17 06: 13; Admin Dose 40 MG; Start 01/14/17 at 06:00 Amiodarone HCl 200 mg 200 mg Q8 NGT Last administered on 01/27/17 23:26; Admin Dose 200 MG; Start 01/17/17 at 14:00 Cefepime HCl 50 ml @ 100 mls/hr Q24H IVPB Last administered on 01/27/17 16:11 ; Admin Dose 100 MLS/HR; Start 01/20/17 at 17:00 Norepinephrine/ Dextrose (Levophed/D5W) 500 ml @ 1.87 mls/hr TITRATE IV ; Start 01/23/17 at 14:30 Metoprolol Tartrate (Lopressor) 12.5 mg BID NGT Last administered on 01/28/17 09:08; Admin Dose 12.5 MG; Start 01/24/17 at 21:00 Insulin Aspart (Novolog Insulin Pen) NOVOLOG *MODERATE* ALGORI... Q4 SC Last administered on 01/28/17 13:03; Admin Dose 2 UNIT; Start 01/25/17 at 13:00 Insulin Glargine (Lantus) 30 unit DAILY@20 SC Last administered on 01/27/17 20 :29; Admin Dose 30 UNIT; Start 01/26/17 at 20:00 YUMIKO ALATORRE NP Jan 28, 2017 14:56
[2017-01-28] MEDS: CEFEPIME 1GM/50 ML (PMX) 50 ML IVPB SCH (17:57)
--- NOTE | 2017-01-28 18:23 | CONS ---
Date/Time of Note Date/Time of Note DATE: 01/28/17 TIME: 18:22 Assessment/Plan Assessment/Plan Additional Assessment/Plan -S/p cardiopulmonary arrest on 12/09/2016 and on 01/08/2017 - 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 Blood cultures from HD catheter on 12/13/2016 are negative to date. 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 MRI on 12/06/2016 and bone scan on showed 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 and left fourth proximal phalanx. superficial swab grew inna only - s/p right pleural effusion s/p thoracentesis with .9L removed on 12/16/2016 - severe , EF 40-45% per TTE 12/17/16 - DM - Hgb A1c 8.7% - HTN associated with DM Tracheostomy site bleeding Plan: s/p HD today 2.5 L removed s/p Tracheostomy, on ventilator, pt will need HD palcement at a unit where they can do a HD for pt with tracheostomy and PEG tube placemen t pt has severe , very labile BP sometimes with HD will continue to follow up for HD need Consultation Date/Type/Reason Admit Date/Time Dec 02, 2016 at 21:01 Initial Consult Date Type of Consultation: NEPHROLOGY Referring Provider: VIET PARKER MD 24 HR Interval Summary Free Text/Dictation s/p HD today 2.5 L removed Exam/Review of Systems Vital Signs Vitals Vital Signs Date Time Temp Pulse Resp B/P Pulse Ox O2 Delivery O2 Flow Rate FiO2 01/28/17 17:13 69 16 100 30 01/28/17 06:00 157/63 Mechanical Ventilator 01/28/17 04:00 99.9 Intake and Output 01/27/17 01/27/17 01/28/17 15:00 23:00 07:00 Intake Total 240 ml 350 ml 310 ml Output Total 75 ml Balance 165 ml 350 ml 310 ml Exam Constitutional: frail, non-verbal Head: normocephalic Eyes: other (NG tube) Neck: other (Tracheostomy), supple Respiratory: diminished breath sounds Cardiovascular: nl pulses Gastrointestinal: non-tender, soft Extremities: normal pulses Neurological: unresponsive Results Result Diagram: 01/28/17 0815 01/28/17 0428 Results 24 hrs Laboratory Tests Test 01/27/17 20:24 01/27/17 21:44 01/28/17 00:35 01/28/17 04:28 Bedside Glucose 158 145 143 White Blood Count 10.1 Red Blood Count 2.64 L Hemoglobin 7.9 L Hematocrit 24.6 L Mean Corpuscular Volume 93.2 Mean Corpuscular Hemoglobin 29.9 Mean Corpuscular Hemoglobin Concent 32.1 Red Cell Distribution Width 15.2 H Platelet Count 156 Mean Platelet Volume 10.3 Neutrophils % 78.6 H Lymphocytes % 12.5 L Monocytes % 7.6 Eosinophils % 0.5 Basophils % 0.1 Nucleated Red Blood Cells % 0.0 Neutrophils # 7.9 H Lymphocytes # 1.3 Monocytes # 0.8 Eosinophils # 0.1 Basophils # 0.0 Nucleated Red Blood Cells # 0.0 Sodium Level 146 H Potassium Level 4.5 Chloride Level 105 Carbon Dioxide Level 31 Anion Gap 15 Blood Urea Nitrogen 52 H Creatinine 2.03 H Glucose Level 118 Calcium Level 8.3 L Total Bilirubin 0.4 Direct Bilirubin 0.00 Indirect Bilirubin 0.4 Aspartate Amino Transf (AST/SGOT) 33 Alanine Aminotransferase (ALT/SGPT) 24 Alkaline Phosphatase 85 Total Protein 5.2 L Albumin 3.9 Globulin 1.30 Albumin/Globulin Ratio 3.00 Test 01/28/17 04:46 01/28/17 08:15 01/28/17 09:07 01/28/17 12:57 Bedside Glucose 119 174 178 Hemoglobin 9.2 L Hematocrit 28.5 L Test 01/28/17 17:59 Bedside Glucose 190 Medications Medications Current Medications Ondansetron HCl (Zofran Inj) 4 mg Q6H PRN IV NAUSEA AND/OR VOMITING Last administered on 12/13/16 01:13; Admin Dose 4 MG; Start 12/02/16 at 22:30 Miscellaneous Information 1 ea NOTE XX ; Start 12/02/16 at 23:00 Glucose (Glutose) 15 gm Q15M PRN PO DECREASED GLUCOSE; Start 12/02/16 at 23:00 Glucose (Glutose) 22.5 gm Q15M PRN PO DECREASED GLUCOSE; Start 12/02/16 at 23: 00 Dextrose (D50w Syringe) 25 ml Q15M PRN IV DECREASED GLUCOSE Last administered on 01/26/17 05:21; Admin Dose 25 ML; Start 12/02/16 at 23:00 Dextrose (D50w Syringe) 50 ml Q15M PRN IV DECREASED GLUCOSE Last administered on 01/23/17 04:58; Admin Dose 50 ML; Start 12/02/16 at 23:00 Glucagon (Glucagen) 1 mg Q15M PRN IM DECREASED GLUCOSE; Start 12/02/16 at 23:00 Glucose (Glutose) 15 gm Q15M PRN BUCCAL DECREASED GLUCOSE; Start 12/02/16 at 23 :00 Gabapentin (Neurontin) 800 mg TID PO Last administered on 12/08/16 20:33; Admin Dose 800 MG; Start 12/03/16 at 09:00; Status Future Hold Benazepril HCl (Lotensin) 10 mg DAILY PO Last administered on 12/07/16 08:26; Admin Dose 10 MG; Start 12/04/16 at 09:00; Status Future Hold Acetaminophen (Tylenol Supp) 650 mg Q6H PRN [place] ELEVATED TEMPERATURE Last administered on 01/13/17 20:32; Admin Dose 650 MG; Start 12/09/16 at 17:00 Hydralazine HCl (Apresoline) 10 mg Q6H PRN IV SBP>150mm hg Last administered on 12/19/16 08:50; Admin Dose 10 MG; Start 12/11/16 at 10:30 Morphine Sulfate (morphine) 2 mg Q2H PRN IV PAIN LEVEL 4-7; Start 12/13/16 at 10 :00 Collagenase (Santyl) 1 applic DAILY TOP Last administered on 01/28/17 09:09; Admin Dose 1 APPLIC; Start 01/04/17 at 09:00 Metoprolol Tartrate (Lopressor) 5 mg Q4 PRN IV FOR H.R>110; Start 01/12/17 at 17:30 Acetaminophen (Tylenol Liquid) 650 mg Q6H PRN NGT PAIN AND OR ELEVATED TEMP Last administered on 01/28/17 06:13; Admin Dose 650 MG; Start 01/13/17 at 23:30 Apixaban (Eliquis) 2.5 mg BID NGT Last administered on 01/28/17 09:08; Admin Dose 2.5 MG; Start 01/13/17 at 21:00; Status Future hold Acetaminophen/ Hydrocodone Bitart ([place] (5/325)) 1 tab Q6H PRN NGT PAIN LEVEL 4-7; Start 01/13/17 at 23:30 Levetiracetam (Keppra Liquid) 1,000 mg DAILY NGT Last administered on 09:07; Admin Dose 1,000 MG; Start 01/14/17 at 09:00 Meclizine HCl (Antivert) 25 mg TID PRN NGT dizziness; Start 01/13/17 at 20:00 Zolpidem Tartrate (Ambien) 5 mg HS PRN NGT INSOMNIA; Start 01/13/17 at 20:00 Aspirin (Aspirin) 81 mg DAILY NGT Last administered on 01/28/17 09:08; Admin Dose 81 MG; Start 01/14/17 at 09:00 Docusate Sodium (Colace Liquid Cup) 100 mg BID NGT Last administered on 09:08; Admin Dose 100 MG; Start 01/13/17 at 21:00 Pantoprazole (Protonix Iv) 40 mg DAILY@06 IV Last administered on 01/28/17 06: 13; Admin Dose 40 MG; Start 01/14/17 at 06:00 Amiodarone HCl 200 mg 200 mg Q8 NGT Last administered on 01/28/17 14:56; Admin Dose 200 MG; Start 01/17/17 at 14:00 Cefepime HCl 50 ml @ 100 mls/hr Q24H IVPB Last administered on 01/28/17 17:57 ; Admin Dose 100 MLS/HR; Start 01/20/17 at 17:00; Stop 01/28/17 at 23:55 Norepinephrine/ Dextrose (Levophed/D5W) 500 ml @ 1.87 mls/hr TITRATE IV ; Start 01/23/17 at 14:30 Metoprolol Tartrate (Lopressor) 12.5 mg BID NGT Last administered on 01/28/17 09:08; Admin Dose 12.5 MG; Start 01/24/17 at 21:00 Insulin Aspart (Novolog Insulin Pen) NOVOLOG *MODERATE* ALGORI... Q4 SC Last administered on 01/28/17 18:01; Admin Dose 4 UNIT; Start 01/25/17 at 13:00 Insulin Glargine (Lantus) 30 unit DAILY@20 SC Last administered on 01/27/17 20 :29; Admin Dose 30 UNIT; Start 01/26/17 at 20:00 TASHIA MCGARRY MD Jan 28, 2017 18:23
[2017-01-28] MEDS: INSULIN GLARGINE [LANtus] 3 ML PEN SC SCH (20:40)
[2017-01-29] VITALS (35 sets, daily range): BP systolic 100–153; BP diastolic 46–72; PULSE 59–70; RESP 4–22
[2017-01-29] MEDS: INSULIN ASPART [NOVOLOG] 3 ML PEN SC SCH ×6 (00:50→21:10)
[2017-01-29] MEDS: ALBUTEROL 18 GM INHALER INH SCH ×4 (01:14→21:15)
[2017-01-29] MEDS: COLLAGENASE 30 GM TUBE TOP SCH ×2 (05:14→08:25)
[2017-01-29 05:15] LABS: ADD SCAN DIFF NO
[2017-01-29 05:51] LABS: CALCIUM 8.8 mg/dl (8.4-10.2); CREATININE 1.85 mg/dl (0.61-1.24); POTASSIUM 4.7 mmol/L (3.5-5.1)
[2017-01-29 05:57] LABS: BASOPHILS % 0.1 % (0.0-2.0); EOSINOPHILS # 0.1 10^3/ul (0.0-0.5); EOSINOPHILS % 0.4 % (0.0-7.0); HEMATOCRIT 25.6 % (42.0-52.0); HEMOGLOBIN 8.1 g/dl (14.0-18.0); LYMPHOCYTES # 1.4 10^3/ul (0.8-2.9); LYMPHOCYTES % 11.6 % (15.0-51.0); MEAN CORPUSCULAR HGB CONC 31.6 g/dl (32.0-37.0); MEAN CORPUSCULAR VOLUME 94.8 fl (82.0-101.0); MEAN PLATELET VOLUME 10.5 fl (7.4-10.4); MONOCYTE # 0.9 10^3/ul (0.3-0.9); MONOCYTES % 7.2 % (0.0-11.0); NEUTROPHIL # 9.8 10^3/ul (1.6-7.5); NEUTROPHILS % 79.9 % (39.0-77.0); PLATELET COUNT 176 10^3/UL (140-415); RED CELL DISTRIBUTION WIDTH 14.9 % (11.5-14.5); WHITE BLOOD COUNT 12.3 10^3/ul (4.8-10.8)
[2017-01-29] MEDS: PANTOPRAZOLE 40 MG INJ IV SCH (06:16)
[2017-01-29] MEDS: AMIODARONE 200 MG TAB NGT SCH ×3 (06:17→21:07)
[2017-01-29] MEDS: LEVETIRACETAM (100 MG/ML) 5ML CUP NGT SCH (08:24)
[2017-01-29] MEDS: DOCUSATE SODIUM 10 MG/ML (10ML CUP) NGT SCH ×2 (08:25→20:59)
[2017-01-29] MEDS: METOPROLOL 25 MG TAB NGT SCH ×2 (08:25→20:59)
[2017-01-29] MEDS: APIXABAN 5 MG TABLET NGT SCH ×2 (08:25→20:59)
[2017-01-29] MEDS: ASPIRIN 81 MG TAB NGT SCH (08:25)
--- NOTE | 2017-01-29 08:50 | CONS ---
Date/Time of Note Date/Time of Note DATE: 01/29/17 TIME: 08:47 Assessment/Plan Assessment/Plan Additional Assessment/Plan Ventilator setting; AC of 16, tidal volume 500, PEEP of 5, 30% FiO2. Assessment recommendations; 1. Patient admitted for recurrent respiratory failure this time from cardiac arrest because of flash pulmonary, patient with severe anoxic encephalopathy. 2. Renal failure, on hemodialysis. 3. Anemia. 4. Peripheral vascular disease. Continue current supportive care. Patient can be transferred to rehab center. Prognosis is poor. Consultation Date/Type/Reason Admit Date/Time Dec 02, 2016 at 21:01 Initial Consult Date 12/03/16 Type of Consultation: Pulmonary/critical care Referring Provider: VIET PARKER MD 24 HR Interval Summary Free Text/Dictation Patient condition remains unchanged. Remains unresponsive. Has remained hemodynamically stable. General exam; elderly male, unresponsive. Currently in no distress. Exam/Review of Systems Vital Signs Vitals Vital Signs Date Time Temp Pulse Resp B/P Pulse Ox O2 Delivery O2 Flow Rate FiO2 01/29/17 07:00 66 16 148/66 99 01/29/17 06:00 98.3 01/29/17 05:15 30 01/28/17 07:00 Mechanical Ventilator Intake and Output 01/28/17 01/28/17 01/29/17 15:00 23:00 07:00 Intake Total 590 ml 290 ml 340 ml Output Total 2800 ml 200 ml Balance -2210 ml 90 ml 340 ml Exam HEENT exam is; supple neck, no JVD. No lymphadenopathy. Midline trachea. No thyromegaly. Tracheostomy placed with clean insertion site. Patient is edentulous. Chest examination; clear to auscultation. S1-S2 audible, no murmurs. Regular rhythm. Abdomen examination; soft, G-tube in place. No organomegaly. Bowel sounds audible. Extremity examination; no peripheral edema. 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 Results Result Diagram: 01/29/17 0425 01/29/17 0425 Results 24 hrs Laboratory Tests Test 01/28/17 09:07 01/28/17 12:57 01/28/17 17:59 01/28/17 20:29 Bedside Glucose 174 178 190 169 Test 01/29/17 00:44 01/29/17 04:25 01/29/17 05:10 01/29/17 08:32 Bedside Glucose 191 211 208 White Blood Count 12.3 #H Red Blood Count 2.70 L Hemoglobin 8.1 L Hematocrit 25.6 L Mean Corpuscular Volume 94.8 Mean Corpuscular Hemoglobin 30.0 Mean Corpuscular Hemoglobin Concent 31.6 L Red Cell Distribution Width 14.9 H Platelet Count 176 Mean Platelet Volume 10.5 H Neutrophils % 79.9 H Lymphocytes % 11.6 L Monocytes % 7.2 Eosinophils % 0.4 Basophils % 0.1 Nucleated Red Blood Cells % 0.0 Neutrophils # 9.8 H Lymphocytes # 1.4 Monocytes # 0.9 Eosinophils # 0.1 Basophils # 0.0 Nucleated Red Blood Cells # 0.0 Sodium Level 144 Potassium Level 4.7 Chloride Level 102 Carbon Dioxide Level 28 Anion Gap 19 H Blood Urea Nitrogen 42 H Creatinine 1.85 H Glucose Level 206 Calcium Level 8.8 Medications Medications Current Medications Ondansetron HCl (Zofran Inj) 4 mg Q6H PRN IV NAUSEA AND/OR VOMITING Last administered on 12/13/16 01:13; Admin Dose 4 MG; Start 12/02/16 at 22:30 Miscellaneous Information 1 ea NOTE XX ; Start 12/02/16 at 23:00 Glucose (Glutose) 15 gm Q15M PRN PO DECREASED GLUCOSE; Start 12/02/16 at 23:00 Glucose (Glutose) 22.5 gm Q15M PRN PO DECREASED GLUCOSE; Start 12/02/16 at 23: 00 Dextrose (D50w Syringe) 25 ml Q15M PRN IV DECREASED GLUCOSE Last administered on 01/26/17 05:21; Admin Dose 25 ML; Start 12/02/16 at 23:00 Dextrose (D50w Syringe) 50 ml Q15M PRN IV DECREASED GLUCOSE Last administered on 01/23/17 04:58; Admin Dose 50 ML; Start 12/02/16 at 23:00 Glucagon (Glucagen) 1 mg Q15M PRN IM DECREASED GLUCOSE; Start 12/02/16 at 23:00 Glucose (Glutose) 15 gm Q15M PRN BUCCAL DECREASED GLUCOSE; Start 12/02/16 at 23 :00 Gabapentin (Neurontin) 800 mg TID PO Last administered on 12/08/16 20:33; Admin Dose 800 MG; Start 12/03/16 at 09:00; Status Future Hold Benazepril HCl (Lotensin) 10 mg DAILY PO Last administered on 12/07/16 08:26; Admin Dose 10 MG; Start 12/04/16 at 09:00; Status Future Hold Acetaminophen (Tylenol Supp) 650 mg Q6H PRN [place] ELEVATED TEMPERATURE Last administered on 01/13/17 20:32; Admin Dose 650 MG; Start 12/09/16 at 17:00 Hydralazine HCl (Apresoline) 10 mg Q6H PRN IV SBP>150mm hg Last administered on 12/19/16 08:50; Admin Dose 10 MG; Start 12/11/16 at 10:30 Morphine Sulfate (morphine) 2 mg Q2H PRN IV PAIN LEVEL 4-7; Start 12/13/16 at 10 :00 Collagenase (Santyl) 1 applic DAILY TOP Last administered on 01/29/17 08:25; Admin Dose 1 APPLIC; Start 01/04/17 at 09:00 Metoprolol Tartrate (Lopressor) 5 mg Q4 PRN IV FOR H.R>110; Start 01/12/17 at 17:30 Acetaminophen (Tylenol Liquid) 650 mg Q6H PRN NGT PAIN AND OR ELEVATED TEMP Last administered on 01/28/17 06:13; Admin Dose 650 MG; Start 01/13/17 at 23:30 Apixaban (Eliquis) 2.5 mg BID NGT Last administered on 01/29/17 08:25; Admin Dose 2.5 MG; Start 01/13/17 at 21:00; Status Future hold Acetaminophen/ Hydrocodone Bitart ([place] (5/325)) 1 tab Q6H PRN NGT PAIN LEVEL 4-7; Start 01/13/17 at 23:30 Levetiracetam (Keppra Liquid) 1,000 mg DAILY NGT Last administered on 08:24; Admin Dose 1,000 MG; Start 01/14/17 at 09:00 Meclizine HCl (Antivert) 25 mg TID PRN NGT dizziness; Start 01/13/17 at 20:00 Zolpidem Tartrate (Ambien) 5 mg HS PRN NGT INSOMNIA; Start 01/13/17 at 20:00 Aspirin (Aspirin) 81 mg DAILY NGT Last administered on 01/29/17 08:25; Admin Dose 81 MG; Start 01/14/17 at 09:00 Docusate Sodium (Colace Liquid Cup) 100 mg BID NGT Last administered on 08:25; Admin Dose 100 MG; Start 01/13/17 at 21:00 Pantoprazole (Protonix Iv) 40 mg DAILY@06 IV Last administered on 01/29/17 06: 16; Admin Dose 40 MG; Start 01/14/17 at 06:00 Amiodarone HCl 200 mg 200 mg Q8 NGT Last administered on 01/29/17 06:17; Admin Dose 200 MG; Start 01/17/17 at 14:00 Norepinephrine/ Dextrose (Levophed/D5W) 500 ml @ 1.87 mls/hr TITRATE IV ; Start 01/23/17 at 14:30 Metoprolol Tartrate (Lopressor) 12.5 mg BID NGT Last administered on 01/29/17 08:25; Admin Dose 12.5 MG; Start 01/24/17 at 21:00 Insulin Aspart (Novolog Insulin Pen) NOVOLOG *MODERATE* ALGORI... Q4 SC Last administered on 01/29/17 08:34; Admin Dose 4 UNIT; Start 01/25/17 at 13:00 Insulin Glargine (Lantus) 30 unit DAILY@20 SC Last administered on 01/28/17 20 :40; Admin Dose 30 UNIT; Start 01/26/17 at 20:00 IKE MULLER 17, 2017 08:50
--- NOTE | 2017-01-29 12:27 | CONS ---
Date/Time of Note Date/Time of Note DATE: 01/29/17 TIME: 12:22 Assessment/Plan Assessment/Plan Additional Assessment/Plan Sepsis PAF in NSR CHF Severe Aortic Stenosis Respiratory failure s/p extubation Osteomyelitis Cellulitis left foot Diabetic foot Diabetes Tobacco abuse Hemodynamically stable Continue Vent support Avoid Diuretics Avoid Volume Overload Continue Metoprolol Continue Amiodarone Continue Eliquis Continue Heparin Continue Insulin Continue antibiotics HD as scheduled Consultation Date/Type/Reason Admit Date/Time Dec 02, 2016 at 21:01 Constitutional: requiring IVF, requiring O2 Eyes: no complaints ENT: no complaints Respiratory: no complaints Cardiovascular: no complaints Gastrointestinal: no complaints Genitourinary: no complaints Musculoskeletal: bone/joint pain Skin: other Neurologic: no complaints Endocrine: no complaints Lymphatic: no complaints Psychological: no complaints Immunologic: no complaints Social History Smoking Status: Former smoker Exam/Review of Systems Vital Signs Vitals Vital Signs Date Time Temp Pulse Resp B/P Pulse Ox O2 Delivery O2 Flow Rate FiO2 01/29/17 11:20 60 16 100 30 01/29/17 11:00 100/46 Mechanical Ventilator 01/29/17 08:00 98.3 Intake and Output 01/28/17 01/28/17 01/29/17 15:00 23:00 07:00 Intake Total 590 ml 290 ml 340 ml Output Total 2800 ml 200 ml Balance -2210 ml 90 ml 340 ml Exam Constitutional: non-verbal Neck: other (Trach on Vent) Respiratory: other (mechanial breath sounds heard bilaterally) Cardiovascular: regular rate and rhythm Gastrointestinal: nl liver, spleen, non-tender, soft Extremities: other Results Result Diagram: 01/29/17 0425 01/29/17 0425 Results 24 hrs Laboratory Tests Test 01/28/17 12:57 01/28/17 17:59 01/28/17 20:29 01/29/17 00:44 Bedside Glucose 178 190 169 191 Test 01/29/17 04:25 01/29/17 05:10 01/29/17 08:32 White Blood Count 12.3 #H Red Blood Count 2.70 L Hemoglobin 8.1 L Hematocrit 25.6 L Mean Corpuscular Volume 94.8 Mean Corpuscular Hemoglobin 30.0 Mean Corpuscular Hemoglobin Concent 31.6 L Red Cell Distribution Width 14.9 H Platelet Count 176 Mean Platelet Volume 10.5 H Neutrophils % 79.9 H Lymphocytes % 11.6 L Monocytes % 7.2 Eosinophils % 0.4 Basophils % 0.1 Nucleated Red Blood Cells % 0.0 Neutrophils # 9.8 H Lymphocytes # 1.4 Monocytes # 0.9 Eosinophils # 0.1 Basophils # 0.0 Nucleated Red Blood Cells # 0.0 Sodium Level 144 Potassium Level 4.7 Chloride Level 102 Carbon Dioxide Level 28 Anion Gap 19 H Blood Urea Nitrogen 42 H Creatinine 1.85 H Glucose Level 206 Calcium Level 8.8 Bedside Glucose 211 208 Medications Medications Current Medications Ondansetron HCl (Zofran Inj) 4 mg Q6H PRN IV NAUSEA AND/OR VOMITING Last administered on 12/13/16 01:13; Admin Dose 4 MG; Start 12/02/16 at 22:30 Miscellaneous Information 1 ea NOTE XX ; Start 12/02/16 at 23:00 Glucose (Glutose) 15 gm Q15M PRN PO DECREASED GLUCOSE; Start 12/02/16 at 23:00 Glucose (Glutose) 22.5 gm Q15M PRN PO DECREASED GLUCOSE; Start 12/02/16 at 23: 00 Dextrose (D50w Syringe) 25 ml Q15M PRN IV DECREASED GLUCOSE Last administered on 01/26/17 05:21; Admin Dose 25 ML; Start 12/02/16 at 23:00 Dextrose (D50w Syringe) 50 ml Q15M PRN IV DECREASED GLUCOSE Last administered on 01/23/17 04:58; Admin Dose 50 ML; Start 12/02/16 at 23:00 Glucagon (Glucagen) 1 mg Q15M PRN IM DECREASED GLUCOSE; Start 12/02/16 at 23:00 Glucose (Glutose) 15 gm Q15M PRN BUCCAL DECREASED GLUCOSE; Start 12/02/16 at 23 :00 Gabapentin (Neurontin) 800 mg TID PO Last administered on 12/08/16 20:33; Admin Dose 800 MG; Start 12/03/16 at 09:00; Status Future Hold Benazepril HCl (Lotensin) 10 mg DAILY PO Last administered on 12/07/16 08:26; Admin Dose 10 MG; Start 12/04/16 at 09:00; Status Future Hold Acetaminophen (Tylenol Supp) 650 mg Q6H PRN [place] ELEVATED TEMPERATURE Last administered on 01/13/17 20:32; Admin Dose 650 MG; Start 12/09/16 at 17:00 Hydralazine HCl (Apresoline) 10 mg Q6H PRN IV SBP>150mm hg Last administered on 12/19/16 08:50; Admin Dose 10 MG; Start 12/11/16 at 10:30 Morphine Sulfate (morphine) 2 mg Q2H PRN IV PAIN LEVEL 4-7; Start 12/13/16 at 10 :00 Collagenase (Santyl) 1 applic DAILY TOP Last administered on 01/29/17 08:25; Admin Dose 1 APPLIC; Start 01/04/17 at 09:00 Metoprolol Tartrate (Lopressor) 5 mg Q4 PRN IV FOR H.R>110; Start 01/12/17 at 17:30 Acetaminophen (Tylenol Liquid) 650 mg Q6H PRN NGT PAIN AND [place] ELEVATED TEMP Last administered on 01/28/17 06:13; Admin Dose 650 MG; Start 01/13/17 at 23:30 Apixaban (Eliquis) 2.5 mg BID NGT Last administered on 01/29/17 08:25; Admin Dose 2.5 MG; Start 01/13/17 at 21:00; Status Future hold Acetaminophen/ Hydrocodone Bitart ([place] (5/325)) 1 tab Q6H PRN NGT PAIN LEVEL 4-7; Start 01/13/17 at 23:30 Levetiracetam (Keppra Liquid) 1,000 mg DAILY NGT Last administered on 08:24; Admin Dose 1,000 MG; Start 01/14/17 at 09:00 Meclizine HCl (Antivert) 25 mg TID PRN NGT dizziness; Start 01/13/17 at 20:00 Zolpidem Tartrate (Ambien) 5 mg HS PRN NGT INSOMNIA; Start 01/13/17 at 20:00 Aspirin (Aspirin) 81 mg DAILY NGT Last administered on 01/29/17 08:25; Admin Dose 81 MG; Start 01/14/17 at 09:00 Docusate Sodium (Colace Liquid Cup) 100 mg BID NGT Last administered on 08:25; Admin Dose 100 MG; Start 01/13/17 at 21:00 Pantoprazole (Protonix Iv) 40 mg DAILY@06 IV Last administered on 01/29/17 06: 16; Admin Dose 40 MG; Start 01/14/17 at 06:00 Amiodarone HCl 200 mg 200 mg Q8 NGT Last administered on 01/29/17 06:17; Admin Dose 200 MG; Start 01/17/17 at 14:00 Norepinephrine/ Dextrose (Levophed/D5W) 500 ml @ 1.87 mls/hr TITRATE IV ; Start 01/23/17 at 14:30 Metoprolol Tartrate (Lopressor) 12.5 mg BID NGT Last administered on 01/29/17 08:25; Admin Dose 12.5 MG; Start 01/24/17 at 21:00 Insulin Aspart (Novolog Insulin Pen) NOVOLOG *MODERATE* ALGORI... Q4 SC Last administered on 01/29/17 08:34; Admin Dose 4 UNIT; Start 01/25/17 at 13:00 Insulin Glargine (Lantus) 30 unit DAILY@20 SC Last administered on 01/28/17 20 :40; Admin Dose 30 UNIT; Start 01/26/17 at 20:00 VIRI ROY M.D. Jan 29, 2017 12:27
--- NOTE | 2017-01-29 14:28 | CONS ---
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 Blood cultures from HD catheter on 12/13/2016 are negative to date. 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 MRI on 12/06/2016 and bone scan on showed 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 and left fourth proximal phalanx. superficial swab grew inna only - s/p right pleural effusion s/p thoracentesis with .9L removed on 12/16/2016 - severe , EF 40-45% per TTE 12/17/16 - DM - Hgb A1c 8.7% - HTN associated with DM Tracheostomy site bleeding Plan: S/p HD yesterday,w ill reassess for HD tomorrow s/p Tracheostomy, on ventilator, pt will need HD palcement at a unit where they can do a HD for pt with tracheostomy and PEG tube placemen t pt has severe , very labile BP sometimes with HD will continue to follow up for HD need Consultation Date/Type/Reason Admit Date/Time Dec 02, 2016 at 21:01 Initial Consult Date Type of Consultation: NEPHROLOGY Referring Provider: VIET PARKER MD 24 HR Interval Summary Free Text/Dictation no acute events overnight, S/p HD yesterday, BP stable Exam/Review of Systems Vital Signs Vitals Vital Signs Date Time Temp Pulse Resp B/P Pulse Ox O2 Delivery O2 Flow Rate FiO2 01/29/17 14:00 67 4 144/61 97 Mechanical Ventilator 01/29/17 13:30 30 01/29/17 12:00 98.5 Intake and Output 6/01/28/17 01/29/17 15:00 23:00 07:00 Intake Total 590 ml 290 ml 340 ml Output Total 2800 ml 200 ml Balance -2210 ml 90 ml 340 ml Exam Constitutional: frail, non-verbal Head: normocephalic Eyes: other (NG tube) Neck: other (Tracheostomy), supple Respiratory: diminished breath sounds Cardiovascular: nl pulses Gastrointestinal: non-tender, soft Extremities: normal pulses Neurological: unresponsive Results Result Diagram: 01/29/17 0425 01/29/17 0425 Results 24 hrs Laboratory Tests Test 01/28/17 17:59 01/28/17 20:29 01/29/17 00:44 01/29/17 04:25 Bedside Glucose 190 169 191 White Blood Count 12.3 #H Red Blood Count 2.70 L Hemoglobin 8.1 L Hematocrit 25.6 L Mean Corpuscular Volume 94.8 Mean Corpuscular Hemoglobin 30.0 Mean Corpuscular Hemoglobin Concent 31.6 L Red Cell Distribution Width 14.9 H Platelet Count 176 Mean Platelet Volume 10.5 H Neutrophils % 79.9 H Lymphocytes % 11.6 L Monocytes % 7.2 Eosinophils % 0.4 Basophils % 0.1 Nucleated Red Blood Cells % 0.0 Neutrophils # 9.8 H Lymphocytes # 1.4 Monocytes # 0.9 Eosinophils # 0.1 Basophils # 0.0 Nucleated Red Blood Cells # 0.0 Sodium Level 144 Potassium Level 4.7 Chloride Level 102 Carbon Dioxide Level 28 Anion Gap 19 H Blood Urea Nitrogen 42 H Creatinine 1.85 H Glucose Level 206 Calcium Level 8.8 Test 01/29/17 05:10 01/29/17 08:32 01/29/17 12:35 Bedside Glucose 211 208 205 Medications Medications Current Medications Ondansetron HCl (Zofran Inj) 4 mg Q6H PRN IV NAUSEA AND/OR VOMITING Last administered on 12/13/16 01:13; Admin Dose 4 MG; Start 12/02/16 at 22:30 Miscellaneous Information 1 ea NOTE XX ; Start 12/02/16 at 23:00 Glucose (Glutose) 15 gm Q15M PRN PO DECREASED GLUCOSE; Start 12/02/16 at 23:00 Glucose (Glutose) 22.5 gm Q15M PRN PO DECREASED GLUCOSE; Start 12/02/16 at 23: 00 Dextrose (D50w Syringe) 25 ml Q15M PRN IV DECREASED GLUCOSE Last administered on 01/26/17 05:21; Admin Dose 25 ML; Start 12/02/16 at 23:00 Dextrose (D50w Syringe) 50 ml Q15M PRN IV DECREASED GLUCOSE Last administered on 01/23/17 04:58; Admin Dose 50 ML; Start 12/02/16 at 23:00 Glucagon (Glucagen) 1 mg Q15M PRN IM DECREASED GLUCOSE; Start 12/02/16 at 23:00 Glucose (Glutose) 15 gm Q15M PRN BUCCAL DECREASED GLUCOSE; Start 12/02/16 at 23 :00 Gabapentin (Neurontin) 800 mg TID PO Last administered on 12/08/16 20:33; Admin Dose 800 MG; Start 12/03/16 at 09:00; Status Future Hold Benazepril HCl (Lotensin) 10 mg DAILY PO Last administered on 12/07/16 08:26; Admin Dose 10 MG; Start 12/04/16 at 09:00; Status Future Hold Acetaminophen (Tylenol Supp) 650 mg Q6H PRN [place] ELEVATED TEMPERATURE Last administered on 01/13/17 20:32; Admin Dose 650 MG; Start 12/09/16 at 17:00 Hydralazine HCl (Apresoline) 10 mg Q6H PRN IV SBP>150mm hg Last administered on 12/19/16 08:50; Admin Dose 10 MG; Start 12/11/16 at 10:30 Morphine Sulfate (morphine) 2 mg Q2H PRN IV PAIN LEVEL 4-7; Start 12/13/16 at 10 :00 Collagenase (Santyl) 1 applic DAILY TOP Last administered on 01/29/17 08:25; Admin Dose 1 APPLIC; Start 01/04/17 at 09:00 Metoprolol Tartrate (Lopressor) 5 mg Q4 PRN IV FOR H.R>110; Start 01/12/17 at 17:30 Acetaminophen (Tylenol Liquid) 650 mg Q6H PRN NGT PAIN AND OR ELEVATED TEMP Last administered on 01/28/17 06:13; Admin Dose 650 MG; Start 01/13/17 at 23:30 Apixaban (Eliquis) 2.5 mg BID NGT Last administered on 01/29/17 08:25; Admin Dose 2.5 MG; Start 01/13/17 at 21:00; Status Future hold Acetaminophen/ Hydrocodone Bitart ([place] (5/325)) 1 tab Q6H PRN NGT PAIN LEVEL 4-7; Start 01/13/17 at 23:30 Levetiracetam (Keppra Liquid) 1,000 mg DAILY NGT Last administered on 08:24; Admin Dose 1,000 MG; Start 01/14/17 at 09:00 Meclizine HCl (Antivert) 25 mg TID PRN NGT dizziness; Start 01/13/17 at 20:00 Zolpidem Tartrate (Ambien) 5 mg HS PRN NGT INSOMNIA; Start 01/13/17 at 20:00 Aspirin (Aspirin) 81 mg DAILY NGT Last administered on 01/29/17 08:25; Admin Dose 81 MG; Start 01/14/17 at 09:00 Docusate Sodium (Colace Liquid Cup) 100 mg BID NGT Last administered on 08:25; Admin Dose 100 MG; Start 01/13/17 at 21:00 Pantoprazole (Protonix Iv) 40 mg DAILY@06 IV Last administered on 01/29/17 06: 16; Admin Dose 40 MG; Start 01/14/17 at 06:00 Amiodarone HCl 200 mg 200 mg Q8 NGT Last administered on 01/29/17 06:17; Admin Dose 200 MG; Start 01/17/17 at 14:00 Norepinephrine/ Dextrose (Levophed/D5W) 500 ml @ 1.87 mls/hr TITRATE IV ; Start 01/23/17 at 14:30 Metoprolol Tartrate (Lopressor) 12.5 mg BID NGT Last administered on 01/29/17 08:25; Admin Dose 12.5 MG; Start 01/24/17 at 21:00 Insulin Aspart (Novolog Insulin Pen) NOVOLOG *MODERATE* ALGORI... Q4 SC Last administered on 01/29/17 12:39; Admin Dose 4 UNIT; Start 01/25/17 at 13:00 Insulin Glargine (Lantus) 30 unit DAILY@20 SC Last administered on 01/28/17 20 :40; Admin Dose 30 UNIT; Start 01/26/17 at 20:00 TASHIA MCGARRY MD Jan 29, 2017 14:28
--- NOTE | 2017-01-29 20:45 | PN ---
Date/Time of Note Date/Time of Note DATE: 01/29/17 TIME: 18:08 Assessment/Plan VTE Prophylaxis VTE Prophylaxis Intervention: other Lines/Catheters IV [facility] Urinary Cath still in place: No Assessment/Plan Assessment/Plan - Dysphagia, pending G-tube placement. Dr. Sorensen is following in gastroenterology consultation. - Anemia of acute blood loss, today's hemoglobin is 9.2. Continue to monitor daily H&H. - Status post tracheostomy by Dr. Nichols on 01/23. - Anoxic encephalopathy. - Status post cardiopulmonary arrest on 12/09/2016 and 01/08/2017. Continue supportive care. Continue ventilatory support. Dr. Rivera is following in pulmonology consultation. - Possible tracheobronchitis/ pneumonia. Sputum cultures positive for Pseudomonas. Dr. Wilson's group is following in infectious disease consultation. Continued on cefepime. - Acute kidney injury on chronic kidney disease which progressed to end-stage renal disease. Dr. Remy is following in nephrology consultation. Continue hemodialysis per nephrology. - Paroxysmal atrial fibrillation. The patient is continued on aspirin. Dr. Cobian is following in cardiology consultation. Eliquis is held. - Diabetes mellitus type 2. Continue patient's Lantus with NovoLog sliding scale coverage with Accu-Cheks q.4h while patient on nasogastric tube feeding. - Diabetic foot ulcer. Continue current wound care. - Peripheral arterial disease - Osteomyelitis of the distal phalanx of the left great toe and left proximal phalanx. Completed a course of antibiotics for osteomyelitis. Further recommendations based on clinical course. Plan of care discussed with Dr. Heredia. Subjective 24 Hr Interval Summary Free Text/Dictation afebrile, bp stable, leukocytosis- ID following, staff. Subjective hx not possible: pt non-verbal Constitutional: requiring IVF, requiring O2 Exam/Review of Systems Vital Signs Vitals Vital Signs Date Time Temp Pulse Resp B/P Pulse Ox O2 Delivery O2 Flow Rate FiO2 01/29/17 15:00 70 16 147/63 100 Mechanical Ventilator 01/29/17 13:30 30 01/29/17 12:00 98.5 Intake and Output 01/28/17 01/28/17 01/29/17 15:00 23:00 07:00 Intake Total 590 ml 290 ml 340 ml Output Total 2800 ml 200 ml Balance -2210 ml 90 ml 340 ml Exam Constitutional: well developed Respiratory: diminished breath sounds Cardiovascular: nl pulses, regular rate and rhythm Gastrointestinal: soft Musculoskeletal: muscle weakness Extremities: normal pulses Neurological: unresponsive Skin: other (skin decubs) Results Result Diagram: 01/29/17 0425 01/29/17 0425 Results 24 hrs Laboratory Tests Test 01/28/17 20:29 01/29/17 00:44 01/29/17 04:25 01/29/17 05:10 Bedside Glucose 169 191 211 White Blood Count 12.3 #H Red Blood Count 2.70 L Hemoglobin 8.1 L Hematocrit 25.6 L Mean Corpuscular Volume 94.8 Mean Corpuscular Hemoglobin 30.0 Mean Corpuscular Hemoglobin Concent 31.6 L Red Cell Distribution Width 14.9 H Platelet Count 176 Mean Platelet Volume 10.5 H Neutrophils % 79.9 H Lymphocytes % 11.6 L Monocytes % 7.2 Eosinophils % 0.4 Basophils % 0.1 Nucleated Red Blood Cells % 0.0 Neutrophils # 9.8 H Lymphocytes # 1.4 Monocytes # 0.9 Eosinophils # 0.1 Basophils # 0.0 Nucleated Red Blood Cells # 0.0 Sodium Level 144 Potassium Level 4.7 Chloride Level 102 Carbon Dioxide Level 28 Anion Gap 19 H Blood Urea Nitrogen 42 H Creatinine 1.85 H Glucose Level 206 Calcium Level 8.8 Test 01/29/17 08:32 01/29/17 12:35 Bedside Glucose 208 205 Medications Medications Current Medications Ondansetron HCl (Zofran Inj) 4 mg Q6H PRN IV NAUSEA AND/OR VOMITING Last administered on 12/13/16 01:13; Admin Dose 4 MG; Start 12/02/16 at 22:30 Miscellaneous Information 1 ea NOTE XX ; Start 12/02/16 at 23:00 Glucose (Glutose) 15 gm Q15M PRN PO DECREASED GLUCOSE; Start 12/02/16 at 23:00 Glucose (Glutose) 22.5 gm Q15M PRN PO DECREASED GLUCOSE; Start 12/02/16 at 23: 00 Dextrose (D50w Syringe) 25 ml Q15M PRN IV DECREASED GLUCOSE Last administered on 01/26/17 05:21; Admin Dose 25 ML; Start 12/02/16 at 23:00 Dextrose (D50w Syringe) 50 ml Q15M PRN IV DECREASED GLUCOSE Last administered on 01/23/17 04:58; Admin Dose 50 ML; Start 12/02/16 at 23:00 Glucagon (Glucagen) 1 mg Q15M PRN IM DECREASED GLUCOSE; Start 12/02/16 at 23:00 Glucose (Glutose) 15 gm Q15M PRN BUCCAL DECREASED GLUCOSE; Start 12/02/16 at 23 :00 Gabapentin (Neurontin) 800 mg TID PO Last administered on 12/08/16 20:33; Admin Dose 800 MG; Start 12/03/16 at 09:00; Status Future Hold Benazepril HCl (Lotensin) 10 mg DAILY PO Last administered on 12/07/16 08:26; Admin Dose 10 MG; Start 12/04/16 at 09:00; Status Future Hold Acetaminophen (Tylenol Supp) 650 mg Q6H PRN [place] ELEVATED TEMPERATURE Last administered on 01/13/17 20:32; Admin Dose 650 MG; Start 12/09/16 at 17:00 Hydralazine HCl (Apresoline) 10 mg Q6H PRN IV SBP>150mm hg Last administered on 12/19/16 08:50; Admin Dose 10 MG; Start 12/11/16 at 10:30 Morphine Sulfate (morphine) 2 mg Q2H PRN IV PAIN LEVEL 4-7; Start 12/13/16 at 10 :00 Collagenase (Santyl) 1 applic DAILY TOP Last administered on 01/29/17 08:25; Admin Dose 1 APPLIC; Start 01/04/17 at 09:00 Metoprolol Tartrate (Lopressor) 5 mg Q4 PRN IV FOR H.R>110; Start 01/12/17 at 17:30 Acetaminophen (Tylenol Liquid) 650 mg Q6H PRN NGT PAIN AND OR ELEVATED TEMP Last administered on 01/28/17 06:13; Admin Dose 650 MG; Start 01/13/17 at 23:30 Apixaban (Eliquis) 2.5 mg BID NGT Last administered on 01/29/17 08:25; Admin Dose 2.5 MG; Start 01/13/17 at 21:00; Status Future hold Acetaminophen/ Hydrocodone Bitart ([place] (5/325)) 1 tab Q6H PRN NGT PAIN LEVEL 4-7; Start 01/13/17 at 23:30 Levetiracetam (Keppra Liquid) 1,000 mg DAILY NGT Last administered on 08:24; Admin Dose 1,000 MG; Start 01/14/17 at 09:00 Meclizine HCl (Antivert) 25 mg TID PRN NGT dizziness; Start 01/13/17 at 20:00 Zolpidem Tartrate (Ambien) 5 mg HS PRN NGT INSOMNIA; Start 01/13/17 at 20:00 Aspirin (Aspirin) 81 mg DAILY NGT Last administered on 01/29/17 08:25; Admin Dose 81 MG; Start 01/14/17 at 09:00 Docusate Sodium (Colace Liquid Cup) 100 mg BID NGT Last administered on 08:25; Admin Dose 100 MG; Start 01/13/17 at 21:00 Pantoprazole (Protonix Iv) 40 mg DAILY@06 IV Last administered on 01/29/17 06: 16; Admin Dose 40 MG; Start 01/14/17 at 06:00 Amiodarone HCl 200 mg 200 mg Q8 NGT Last administered on 01/29/17 06:17; Admin Dose 200 MG; Start 01/17/17 at 14:00 Norepinephrine/ Dextrose (Levophed/D5W) 500 ml @ 1.87 mls/hr TITRATE IV ; Start 01/23/17 at 14:30 Metoprolol Tartrate (Lopressor) 12.5 mg BID NGT Last administered on 01/29/17 08:25; Admin Dose 12.5 MG; Start 01/24/17 at 21:00 Insulin Aspart (Novolog Insulin Pen) NOVOLOG *MODERATE* ALGORI... Q4 SC Last administered on 01/29/17 16:50; Admin Dose 4 UNIT; Start 01/25/17 at 13:00 Insulin Glargine (Lantus) 30 unit DAILY@20 SC Last administered on 01/28/17 20 :40; Admin Dose 30 UNIT; Start 01/26/17 at 20:00 YULIANA SIMMONS Jan 29, 2017 18:13
--- NOTE | 2017-01-29 20:47 | CONS ---
Date/Time of Note Date/Time of Note DATE: 01/29/17 TIME: 19:37 Assessment/Plan Assessment/Plan Chief Complaint/Hosp Course - recurrent cardiopulmonary arrest on 12/09/2016 and on 01/08/2017 - sepsis due to possible tracheobronchitis/pneumonia, resolving - possible tracheobronchitis/pneumonia due to pseudomonas, completed cefepime for this - s/p recurrent sepsis - 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 Blood cultures from HD catheter on 12/13/2016 are negative to date. 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 MRI on 12/06/2016 and bone scan on showed 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 and left fourth proximal phalanx. superficial swab grew inna only. At present, no e/o persistent infection - recurrent pleural effusion - s/p right pleural effusion s/p thoracentesis with .9L removed on 12/16/2016; ( Note: there is no pleural fluid cx since orders were placed after Right thoracentesis, and Left thoracentesis was not performed on 12/17/16 d/t insufficient fluid) - funguria - ARANZA on CKD that progressed to ESRD and started on HD from 12/09/2016 - oliguria - improved - A fib -> PAF - small nonreversible perfusion abnormality in the inferoapical and inferior carver; EF 36% per Lexiscan 12/24/2016 - severe , EF 40-45% per TTE 12/17/16 - DM - Hgb A1c 8.7% - HTN associated with DM - recurrent episodes of respiratory failure - acute encephalopathy with anoxic brain injury - stage 3 decubitus ulcer of coccyx without evidence of infection - urinary retention NOTE: Pt completed 6 weeks (12/03/2016-01/15/2017) of antibiotics to treat 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 and left fourth proximal phalanx ; s/p pip/tazo 12/03/16-01/08/17; linezolid 01/08/17-01/20/17; caspofungin 01/12/17-01/21/17. recommendations: - repeat panculture if temp >100.4F - continue local wound care of L 1st toe and coccyx - monitor Pt off systemic antibiotics management d/w Pt's and son, RN the critical care time I took to care for this Pt today was from 1814 to 1899 Problems: Consultation Date/Type/Reason Admit Date/Time Dec 02, 2016 at 21:01 Initial Consult Date 12/03/16 Type of Consultation: ID Referring Provider: VIET PARKER MD 24 HR Interval Summary Subjective hx not possible: pt non-verbal, pt critical, pt critical status Exam/Review of Systems Vital Signs Vitals Vital Signs Date Time Temp Pulse Resp B/P Pulse Ox O2 Delivery O2 Flow Rate FiO2 01/29/17 19:00 68 16 141/67 100 Mechanical Ventilator 01/29/17 17:04 50 01/29/17 12:00 98.5 Intake and Output 01/28/17 01/28/17 01/29/17 15:00 23:00 07:00 Intake Total 590 ml 290 ml 340 ml Output Total 2800 ml 200 ml Balance -2210 ml 90 ml 340 ml Exam Constitutional: non-verbal Head: normocephalic Eyes: nl conjunctiva, nl lids ENMT: intubated, other (NGT) Respiratory: crackles/rales Cardiovascular: nl pulses, regular rate and rhythm Gastrointestinal: non-tender, soft Musculoskeletal: nl extremities to inspection Extremities: No edema Neurological: lethargic Skin: rash or lesions ([place]) Results Result Diagram: 01/29/17 0425 01/29/17 0425 Results 24 hrs Laboratory Tests Test 01/28/17 20:29 01/29/17 00:44 01/29/17 04:25 01/29/17 05:10 Bedside Glucose 169 191 211 White Blood Count 12.3 #H Red Blood Count 2.70 L Hemoglobin 8.1 L Hematocrit 25.6 L Mean Corpuscular Volume 94.8 Mean Corpuscular Hemoglobin 30.0 Mean Corpuscular Hemoglobin Concent 31.6 L Red Cell Distribution Width 14.9 H Platelet Count 176 Mean Platelet Volume 10.5 H Neutrophils % 79.9 H Lymphocytes % 11.6 L Monocytes % 7.2 Eosinophils % 0.4 Basophils % 0.1 Nucleated Red Blood Cells % 0.0 Neutrophils # 9.8 H Lymphocytes # 1.4 Monocytes # 0.9 Eosinophils # 0.1 Basophils # 0.0 Nucleated Red Blood Cells # 0.0 Sodium Level 144 Potassium Level 4.7 Chloride Level 102 Carbon Dioxide Level 28 Anion Gap 19 H Blood Urea Nitrogen 42 H Creatinine 1.85 H Glucose Level 206 Calcium Level 8.8 Test 01/29/17 08:32 01/29/17 12:35 Bedside Glucose 208 205 Medications Medications Current Medications Ondansetron HCl (Zofran Inj) 4 mg Q6H PRN IV NAUSEA AND/OR VOMITING Last administered on 12/13/16 01:13; Admin Dose 4 MG; Start 12/02/16 at 22:30 Miscellaneous Information 1 ea NOTE XX ; Start 12/02/16 at 23:00 Glucose (Glutose) 15 gm Q15M PRN PO DECREASED GLUCOSE; Start 12/02/16 at 23:00 Glucose (Glutose) 22.5 gm Q15M PRN PO DECREASED GLUCOSE; Start 12/02/16 at 23: 00 Dextrose (D50w Syringe) 25 ml Q15M PRN IV DECREASED GLUCOSE Last administered on 01/26/17 05:21; Admin Dose 25 ML; Start 12/02/16 at 23:00 Dextrose (D50w Syringe) 50 ml Q15M PRN IV DECREASED GLUCOSE Last administered on 01/23/17 04:58; Admin Dose 50 ML; Start 12/02/16 at 23:00 Glucagon (Glucagen) 1 mg Q15M PRN IM DECREASED GLUCOSE; Start 12/02/16 at 23:00 Glucose (Glutose) 15 gm Q15M PRN BUCCAL DECREASED GLUCOSE; Start 12/02/16 at 23 :00 Gabapentin (Neurontin) 800 mg TID PO Last administered on 12/08/16 20:33; Admin Dose 800 MG; Start 12/03/16 at 09:00; Status Future Hold Benazepril HCl (Lotensin) 10 mg DAILY PO Last administered on 12/07/16 08:26; Admin Dose 10 MG; Start 12/04/16 at 09:00; Status Future Hold Acetaminophen (Tylenol Supp) 650 mg Q6H PRN [place] ELEVATED TEMPERATURE Last administered on 01/13/17 20:32; Admin Dose 650 MG; Start 12/09/16 at 17:00 Hydralazine HCl (Apresoline) 10 mg Q6H PRN IV SBP>150mm hg Last administered on 12/19/16 08:50; Admin Dose 10 MG; Start 12/11/16 at 10:30 Morphine Sulfate (morphine) 2 mg Q2H PRN IV PAIN LEVEL 4-7; Start 12/13/16 at 10 :00 Collagenase (Santyl) 1 applic DAILY TOP Last administered on 01/29/17 08:25; Admin Dose 1 APPLIC; Start 01/04/17 at 09:00 Metoprolol Tartrate (Lopressor) 5 mg Q4 PRN IV FOR H.R>110; Start 01/12/17 at 17:30 Acetaminophen (Tylenol Liquid) 650 mg Q6H PRN NGT PAIN AND OR ELEVATED TEMP Last administered on 01/28/17 06:13; Admin Dose 650 MG; Start 01/13/17 at 23:30 Apixaban (Eliquis) 2.5 mg BID NGT Last administered on 01/29/17 08:25; Admin Dose 2.5 MG; Start 01/13/17 at 21:00; Status Future hold Acetaminophen/ Hydrocodone Bitart ([place] (5/325)) 1 tab Q6H PRN NGT PAIN LEVEL 4-7; Start 01/13/17 at 23:30 Levetiracetam (Keppra Liquid) 1,000 mg DAILY NGT Last administered on 08:24; Admin Dose 1,000 MG; Start 01/14/17 at 09:00 Meclizine HCl (Antivert) 25 mg TID PRN NGT dizziness; Start 01/13/17 at 20:00 Zolpidem Tartrate (Ambien) 5 mg HS PRN NGT INSOMNIA; Start 01/13/17 at 20:00 Aspirin (Aspirin) 81 mg DAILY NGT Last administered on 01/29/17 08:25; Admin Dose 81 MG; Start 01/14/17 at 09:00 Docusate Sodium (Colace Liquid Cup) 100 mg BID NGT Last administered on 08:25; Admin Dose 100 MG; Start 01/13/17 at 21:00 Pantoprazole (Protonix Iv) 40 mg DAILY@06 IV Last administered on 01/29/17 06: 16; Admin Dose 40 MG; Start 01/14/17 at 06:00 Amiodarone HCl 200 mg 200 mg Q8 NGT Last administered on 01/29/17 06:17; Admin Dose 200 MG; Start 01/17/17 at 14:00 Norepinephrine/ Dextrose (Levophed/D5W) 500 ml @ 1.87 mls/hr TITRATE IV ; Start 01/23/17 at 14:30 Metoprolol Tartrate (Lopressor) 12.5 mg BID NGT Last administered on 01/29/17 08:25; Admin Dose 12.5 MG; Start 01/24/17 at 21:00 Insulin Aspart (Novolog Insulin Pen) NOVOLOG *MODERATE* ALGORI... Q4 SC Last administered on 01/29/17 16:50; Admin Dose 4 UNIT; Start 01/25/17 at 13:00 Insulin Glargine (Lantus) 30 unit DAILY@20 SC Last administered on 01/28/17 20 :40; Admin Dose 30 UNIT; Start 01/26/17 at 20:00 CHRISTY LOPEZ M.D. Jan 29, 2017 19:40
[2017-01-29] MEDS: INSULIN GLARGINE [LANtus] 3 ML PEN SC SCH (21:07)
[2017-01-30] VITALS (37 sets, daily range): BP systolic 95–151; BP diastolic 45–64; PULSE 59–66; RESP 0–31
[2017-01-30] MEDS: INSULIN ASPART [NOVOLOG] 3 ML PEN SC SCH ×6 (00:54→20:35)
[2017-01-30] MEDS: ALBUTEROL 18 GM INHALER INH SCH ×4 (03:23→21:46)
[2017-01-30] MEDS: PANTOPRAZOLE 40 MG INJ IV SCH (05:24)
[2017-01-30] MEDS: AMIODARONE 200 MG TAB NGT SCH ×4 (05:25→22:00)
[2017-01-30] MEDS: DOCUSATE SODIUM 10 MG/ML (10ML CUP) NGT SCH ×2 (08:18→20:38)
[2017-01-30] MEDS: ASPIRIN 81 MG TAB NGT SCH (08:18)
[2017-01-30] MEDS: METOPROLOL 25 MG TAB NGT SCH ×3 (08:18→21:00)
[2017-01-30] MEDS: APIXABAN 5 MG TABLET NGT SCH ×3 (08:18→21:00)
[2017-01-30] MEDS: LEVETIRACETAM (100 MG/ML) 5ML CUP NGT SCH (08:18)
[2017-01-30] MEDS: COLLAGENASE 30 GM TUBE TOP SCH (08:19)
--- NOTE | 2017-01-30 10:01 | CONS ---
[facility] Patient Name: Camilo Newton Unit Number: [id number] Date of : 1950 Patient Status: Admitted Inpatient Attending Doctor: Viet Parker MD Edit: CHRISTY MOSES M.D. on 01/31/17 @ 10:26 the critical care time we took to care for this Pt on 01/30/2017: 30 min Edit: CHRISTY MOSES M.D. on 01/31/17 @ 10:25 Aurelia attestation: I discussed the management with ELODIA Muhammad and agree with above Date/Time of Note Date/Time of Note DATE: 01/30/17 TIME: 09:43 Consult Date/Type/Reason Admit Date/Time Dec 02, 2016 at 21:01 Initial Consult Date 12/08/16 Type of Consultation: INFECTIOUS DISEASE Ordering Provider: VIET PARKER MD Subjective unable, lethargic, intubated & ventilator supported Objective Vital Signs Date Time Temp Pulse Resp B/P Pulse Ox O2 Delivery O2 Flow Rate FiO2 01/30/17 09:15 64 01/30/17 08:36 16 100 30 01/30/17 07:00 98.8 120/62 Mechanical Ventilator Intake and Output 01/29/17 01/29/17 01/30/17 15:00 23:00 07:00 Intake Total 340 ml 140 ml 490 ml Output Total 40 ml 160 ml 450 ml Balance 300 ml -20 ml 40 ml Exam Constitutional: non-verbal, tracheostomy and ventilator supported Head: normocephalic Eyes: normal conjuctiva and lids ENMT: Tracheostomy, NGT left nares Respiratory: clear anteriorly Cardiovascular: regular rate and rhythm, palpable pulses Gastrointestinal: soft, non-distended, audible bowel sounds Musculoskeletal: extremities normal to inspection Extremities: No edema, warm and dry, saline lock right hand and left forearm, no erythema or swelling Neurological: lethargic, unable Skin: left great toe wound, dressing in place (see nursing documentation for details) Results/Medications Result Diagram: 01/29/175 01/29/175 Results 24 hrs Laboratory Tests Test 01/29/17 12:35 01/29/17 20:58 01/30/17 00:50 01/30/17 04:38 Bedside Glucose 205 191 164 157 Test 01/30/17 08:39 Bedside Glucose 189 Medications Current Medications Ondansetron HCl (Zofran Inj) 4 mg Q6H PRN IV NAUSEA AND/OR VOMITING Last administered on 12/13/16 01:13; Admin Dose 4 MG; Start 12/02/16 at 22:30 Miscellaneous Information 1 ea NOTE XX ; Start 12/02/16 at 23:00 Glucose (Glutose) 15 gm Q15M PRN PO DECREASED GLUCOSE; Start 12/02/16 at 23:00 Glucose (Glutose) 22.5 gm Q15M PRN PO DECREASED GLUCOSE; Start 12/02/16 at 23: 00 Dextrose (D50w Syringe) 25 ml Q15M PRN IV DECREASED GLUCOSE Last administered on 01/26/17 05:21; Admin Dose 25 ML; Start 12/02/16 at 23:00 Dextrose (D50w Syringe) 50 ml Q15M PRN IV DECREASED GLUCOSE Last administered on 01/23/17 04:58; Admin Dose 50 ML; Start 12/02/16 at 23:00 Glucagon (Glucagen) 1 mg Q15M PRN IM DECREASED GLUCOSE; Start 12/02/16 at 23:00 Glucose (Glutose) 15 gm Q15M PRN BUCCAL DECREASED GLUCOSE; Start 12/02/16 at 23 :00 Gabapentin (Neurontin) 800 mg TID PO Last administered on 12/08/16 20:33; Admin Dose 800 MG; Start 12/03/16 at 09:00; Status Future Hold Benazepril HCl (Lotensin) 10 mg DAILY PO Last administered on 12/07/16 08:26; Admin Dose 10 MG; Start 12/04/16 at 09:00; Status Future Hold Acetaminophen (Tylenol Supp) 650 mg Q6H PRN [place] ELEVATED TEMPERATURE Last administered on 01/13/17 20:32; Admin Dose 650 MG; Start 12/09/16 at 17:00 Hydralazine HCl (Apresoline) 10 mg Q6H PRN IV SBP>150mm hg Last administered on 12/19/16 08:50; Admin Dose 10 MG; Start 12/11/16 at 10:30 Morphine Sulfate (morphine) 2 mg Q2H PRN IV PAIN LEVEL 4-7; Start 12/13/16 at 10 :00 Collagenase (Santyl) 1 applic DAILY TOP Last administered on 01/30/17 08:19; Admin Dose 1 APPLIC; Start 01/04/17 at 09:00 Metoprolol Tartrate (Lopressor) 5 mg Q4 PRN IV FOR H.R>110; Start 01/12/17 at 17:30 Acetaminophen (Tylenol Liquid) 650 mg Q6H PRN NGT PAIN AND OR ELEVATED TEMP Last administered on 01/28/17 06:13; Admin Dose 650 MG; Start 01/13/17 at 23:30 Apixaban (Eliquis) 2.5 mg BID NGT Last administered on 01/30/17 08:18; Admin Dose 2.5 MG; Start 01/13/17 at 21:00; Status Future hold Acetaminophen/ Hydrocodone Bitart ([place] (5/325)) 1 tab Q6H PRN NGT PAIN LEVEL 4-7; Start 01/13/17 at 23:30 Levetiracetam (Keppra Liquid) 1,000 mg DAILY NGT Last administered on 08:18; Admin Dose 1,000 MG; Start 01/14/17 at 09:00 Meclizine HCl (Antivert) 25 mg TID PRN NGT dizziness; Start 01/13/17 at 20:00 Zolpidem Tartrate (Ambien) 5 mg HS PRN NGT INSOMNIA; Start 01/13/17 at 20:00 Aspirin (Aspirin) 81 mg DAILY NGT Last administered on 01/30/17 08:18; Admin Dose 81 MG; Start 01/14/17 at 09:00 Docusate Sodium (Colace Liquid Cup) 100 mg BID NGT Last administered on 08:18; Admin Dose 100 MG; Start 01/13/17 at 21:00 Pantoprazole (Protonix Iv) 40 mg DAILY@06 IV Last administered on 01/30/17 05: 24; Admin Dose 40 MG; Start 01/14/17 at 06:00 Amiodarone HCl (Cordarone) 200 mg Q8 NGT Last administered on 01/30/17 05:25; Admin Dose 200 MG; Start 01/17/17 at 14:00 Metoprolol Tartrate (Lopressor) 12.5 mg BID NGT Last administered on 01/30/17 08:18; Admin Dose 12.5 MG; Start 01/24/17 at 21:00 Insulin Aspart (Novolog Insulin Pen) NOVOLOG *MODERATE* [place]I... Q4 SC Last administered on 01/30/17 08:55; Admin Dose 4 UNIT; Start 01/25/17 at 13:00 Insulin Glargine (Lantus) 30 unit DAILY@20 SC Last administered on 01/29/17 21 :07; Admin Dose 30 UNIT; Start 01/26/17 at 20:00 Assessment/Plan Chief Complaint/Hosp Course - recurrent cardiopulmonary arrest on 12/09/2016 and on 01/08/2017 - sepsis due to possible tracheobronchitis/pneumonia, resolving - possible tracheobronchitis/pneumonia due to pseudomonas, completed cefepime for this - s/p recurrent sepsis - 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 Blood cultures from HD catheter on 12/13/2016 are negative to date. 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 MRI on 12/06/2016 and bone scan on showed 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 and left fourth proximal phalanx. superficial swab grew inna only. At present, no e/o persistent infection - recurrent pleural effusion - s/p right pleural effusion s/p thoracentesis with .9L removed on 12/16/2016; ( Note: there is no pleural fluid cx since orders were placed after Right thoracentesis, and Left thoracentesis was not performed on 12/17/16 d/t insufficient fluid) - funguria - ARANZA on CKD that progressed to ESRD and started on HD from 12/09/2016 - oliguria - improved - A fib -> PAF - small nonreversible perfusion abnormality in the inferoapical and inferior carver; EF 36% per Lexiscan 12/24/2016 - severe , EF 40-45% per TTE 12/17/16 - DM - Hgb A1c 8.7% - HTN associated with DM - recurrent episodes of respiratory failure - acute encephalopathy with anoxic brain injury - stage 3 decubitus ulcer of coccyx without evidence of infection - urinary retention NOTE: Pt completed 6 weeks (12/03/2016-01/15/2017) of antibiotics to treat 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 and left fourth proximal phalanx ; s/p pip/tazo 12/03/16-01/08/17; linezolid 01/08/17-01/20/17; caspofungin 01/12/17-01/21/17. recommendations: - repeat panculture if temp >100.4F - continue local wound care of L 1st toe and coccyx - continue to monitor Pt off systemic antibiotics - check CBC & BMP in AM Care and management discussed with ALINA Alves and DR. Moses Problems: Additional Assessment/Plan Planning to transfer to Telemetry floor when bed available Trache site still bleeding Awaiting GT placement PAULA MUHAMMAD Jan 30, 2017 09:53
--- NOTE | 2017-01-30 11:27 | CONS ---
Date/Time of Note Date/Time of Note DATE: 01/30/17 TIME: 11:25 Assessment/Plan Assessment/Plan Additional Assessment/Plan Assessment recommendations; 1. Patient admitted for recurrent respiratory failure to ICU from flash pulmonary edema status post CPR with ensuing severe anoxic brain injury. Patient remains ventilator dependent. 2. Anemia. 3. Recent toe osteomyelitis. Patient off antibiotics now. 4. Renal failure, on hemodialysis. 5. History of diabetes and hypertension. Continue current treatment. Patient can be discharged to snf facility. Prognosis is poor. Consultation Date/Type/Reason Admit Date/Time Dec 02, 2016 at 21:01 Initial Consult Date 12/03/16 Type of Consultation: Pulmonary/critical care Referring Provider: VIET PARKER MD 24 HR Interval Summary Free Text/Dictation Patient condition remains unchanged. Has remained hemodynamically stable. General exam; elderly male, unresponsive. On ventilator via tracheostomy. Exam/Review of Systems Vital Signs Vitals Vital Signs Date Time Temp Pulse Resp B/P Pulse Ox O2 Delivery O2 Flow Rate FiO2 01/30/17 11:00 62 9 151/64 100 Mechanical Ventilator 01/30/17 08:36 30 01/30/17 07:00 98.8 Intake and Output 01/29/17 01/29/17 01/30/17 15:00 23:00 07:00 Intake Total 340 ml 140 ml 490 ml Output Total 40 ml 160 ml 450 ml Balance 300 ml -20 ml 40 ml Exam HEENT exam is; supple neck, no JVD. No lymphadenopathy. Midline trachea. No thyromegaly. Tracheostomy in place. Insertion site is clean. Patient is edentulous. Chest examination; clear to auscultation. S1-S2 audible, no murmurs. Regular rhythm. Abdomen examination; soft, no organomegaly G-tube in place. Bowel sounds audible. Extremity examination; no peripheral edema. ARC C[employer] ARC examination; patient remains unresponsive. Results Result Diagram: 01/29/17 0425 01/29/17 0425 Results 24 hrs Laboratory Tests Test 01/29/17 12:35 01/29/17 20:58 01/30/17 00:50 01/30/17 04:38 Bedside Glucose 205 191 164 157 Test 01/30/17 08:39 Bedside Glucose 189 Medications Medications Current Medications Ondansetron HCl (Zofran Inj) 4 mg Q6H PRN IV NAUSEA AND/OR VOMITING Last administered on 12/13/16 01:13; Admin Dose 4 MG; Start 12/02/16 at 22:30 Miscellaneous Information 1 ea NOTE XX ; Start 12/02/16 at 23:00 Glucose (Glutose) 15 gm Q15M PRN PO DECREASED GLUCOSE; Start 12/02/16 at 23:00 Glucose (Glutose) 22.5 gm Q15M PRN PO DECREASED GLUCOSE; Start 12/02/16 at 23: 00 Dextrose (D50w Syringe) 25 ml Q15M PRN IV DECREASED GLUCOSE Last administered on 01/26/17 05:21; Admin Dose 25 ML; Start 12/02/16 at 23:00 Dextrose (D50w Syringe) 50 ml Q15M PRN IV DECREASED GLUCOSE Last administered on 01/23/17 04:58; Admin Dose 50 ML; Start 12/02/16 at 23:00 Glucagon (Glucagen) 1 mg Q15M PRN IM DECREASED GLUCOSE; Start 12/02/16 at 23:00 Glucose (Glutose) 15 gm Q15M PRN BUCCAL DECREASED GLUCOSE; Start 12/02/16 at 23 :00 Gabapentin (Neurontin) 800 mg TID PO Last administered on 12/08/16 20:33; Admin Dose 800 MG; Start 12/03/16 at 09:00; Status Future Hold Benazepril HCl (Lotensin) 10 mg DAILY PO Last administered on 12/07/16 08:26; Admin Dose 10 MG; Start 12/04/16 at 09:00; Status Future Hold Acetaminophen (Tylenol Supp) 650 mg Q6H PRN [place] ELEVATED TEMPERATURE Last administered on 01/13/17 20:32; Admin Dose 650 MG; Start 12/09/16 at 17:00 Hydralazine HCl (Apresoline) 10 mg Q6H PRN IV SBP>150mm hg Last administered on 12/19/16 08:50; Admin Dose 10 MG; Start 12/11/16 at 10:30 Morphine Sulfate (morphine) 2 mg Q2H PRN IV PAIN LEVEL 4-7; Start 12/13/16 at 10 :00 Collagenase (Santyl) 1 applic DAILY TOP Last administered on 01/30/17 08:19; Admin Dose 1 APPLIC; Start 01/04/17 at 09:00 Metoprolol Tartrate (Lopressor) 5 mg Q4 PRN IV FOR H.R>110; Start 01/12/17 at 17:30 Acetaminophen (Tylenol Liquid) 650 mg Q6H PRN NGT PAIN AND OR ELEVATED TEMP Last administered on 01/28/17 06:13; Admin Dose 650 MG; Start 01/13/17 at 23:30 Apixaban (Eliquis) 2.5 mg BID NGT Last administered on 01/30/17 08:18; Admin Dose 2.5 MG; Start 01/13/17 at 21:00; Status Future hold Acetaminophen/ Hydrocodone Bitart ([place] (5/325)) 1 tab Q6H PRN NGT PAIN LEVEL 4-7; Start 01/13/17 at 23:30 Levetiracetam (Keppra Liquid) 1,000 mg DAILY NGT Last administered on 08:18; Admin Dose 1,000 MG; Start 01/14/17 at 09:00 Meclizine HCl (Antivert) 25 mg TID PRN NGT dizziness; Start 01/13/17 at 20:00 Zolpidem Tartrate (Ambien) 5 mg HS PRN NGT INSOMNIA; Start 01/13/17 at 20:00 Aspirin (Aspirin) 81 mg DAILY NGT Last administered on 01/30/17 08:18; Admin Dose 81 MG; Start 01/14/17 at 09:00 Docusate Sodium (Colace Liquid Cup) 100 mg BID NGT Last administered on 08:18; Admin Dose 100 MG; Start 01/13/17 at 21:00 Pantoprazole (Protonix Iv) 40 mg DAILY@06 IV Last administered on 01/30/17 05: 24; Admin Dose 40 MG; Start 01/14/17 at 06:00 Amiodarone HCl (Cordarone) 200 mg Q8 NGT Last administered on 01/30/17 05:25; Admin Dose 200 MG; Start 01/17/17 at 14:00 Metoprolol Tartrate (Lopressor) 12.5 mg BID NGT Last administered on 01/30/17 08:18; Admin Dose 12.5 MG; Start 01/24/17 at 21:00 Insulin Aspart (Novolog Insulin Pen) NOVOLOG *MODERATE* ALGORI... Q4 SC Last administered on 01/30/17 08:55; Admin Dose 4 UNIT; Start 01/25/17 at 13:00 Insulin Glargine (Lantus) 30 unit DAILY@20 SC Last administered on 01/29/17 21 :07; Admin Dose 30 UNIT; Start 01/26/17 at 20:00 IKE MULLER Jan 30, 2017 11:27
--- NOTE | 2017-01-30 12:22 | PN ---
Date/Time of Note Date/Time of Note DATE: 01/30/17 TIME: 12:08 Assessment/Plan VTE Prophylaxis VTE Prophylaxis Intervention: other Lines/Catheters IV Catheter Type (from Nrs): Saline Lock Assessment/Plan Assessment/Plan - Dysphagia. Son Larry wants to dw dr Heredia before patient has PEG placement - Dr Heredia was notified. -plan for PEG by Dr. Smith in gastroenterology consultation. - Anemia of acute blood loss, today's hemoglobin is 9.2. Continue to monitor daily H&H. - Status post tracheostomy by Dr. Nichols on 01/23. - Anoxic encephalopathy. - Status post cardiopulmonary arrest on 12/09/2016 and 01/08/2017. Continue supportive care. Continue ventilatory support. Dr. Rivera is following in pulmonology consultation. - Possible tracheobronchitis/ pneumonia. Sputum cultures positive for Pseudomonas. Dr. Wilson's group is following in infectious disease consultation. Continued on cefepime. - Acute kidney injury on chronic kidney disease which progressed to end-stage renal disease. Dr. Remy is following in nephrology consultation. Continue hemodialysis per nephrology. - Paroxysmal atrial fibrillation. The patient is continued on aspirin. Dr. Cobian is following in cardiology consultation. Eliquis is held. - Diabetes mellitus type 2. Continue patient's Lantus with NovoLog sliding scale coverage with Accu-Cheks q.4h while patient on nasogastric tube feeding. - Diabetic foot ulcer. Continue current wound care. - Peripheral arterial disease - Osteomyelitis of the distal phalanx of the left great toe and left proximal phalanx. Completed a course of antibiotics for osteomyelitis. Further recommendations based on clinical course. Plan of care discussed with Dr. Heredia. Subjective 24 Hr Interval Summary Subjective hx not possible: pt non-verbal, pt critical status Constitutional: requiring IVF, requiring O2 Exam/Review of Systems Vital Signs Vitals Vital Signs Date Time Temp Pulse Resp B/P Pulse Ox O2 Delivery O2 Flow Rate FiO2 01/30/17 11:00 62 9 151/64 100 Mechanical Ventilator 01/30/17 08:36 30 01/30/17 07:00 98.8 Intake and Output 01/29/17 01/29/17 01/30/17 15:00 23:00 07:00 Intake Total 340 ml 140 ml 490 ml Output Total 40 ml 160 ml 450 ml Balance 300 ml -20 ml 40 ml Exam remains on vent, no new bleeding noted around trach, afebrile,plan for PEG placement tomorrow by dr Smith.Family at bed side- Son Larry wants to dw dr Heredia before patient has PEG placement - Dr Heredia was notified. Constitutional: frail, non-verbal Respiratory: diminished breath sounds Cardiovascular: nl pulses Gastrointestinal: non-tender, other (ngt noted), soft Extremities: normal pulses Neurological: unresponsive Skin: other Results Result Diagram: 01/29/175 01/29/17424 Results 24 hrs Laboratory Tests Test 01/29/17 12:35 01/29/17 20:58 01/30/17 00:50 01/30/17 04:38 Bedside Glucose 205 191 164 157 Test 01/30/17 08:39 Bedside Glucose 189 Medications Medications Current Medications Ondansetron HCl (Zofran Inj) 4 mg Q6H PRN IV NAUSEA AND/OR VOMITING Last administered on 12/13/16 01:13; Admin Dose 4 MG; Start 12/02/16 at 22:30 Miscellaneous Information 1 ea NOTE XX ; Start 12/02/16 at 23:00 Glucose (Glutose) 15 gm Q15M PRN PO DECREASED GLUCOSE; Start 12/02/16 at 23:00 Glucose (Glutose) 22.5 gm Q15M PRN PO DECREASED GLUCOSE; Start 12/02/16 at 23: 00 Dextrose (D50w Syringe) 25 ml Q15M PRN IV DECREASED GLUCOSE Last administered on 01/26/17 05:21; Admin Dose 25 ML; Start 12/02/16 at 23:00 Dextrose (D50w Syringe) 50 ml Q15M PRN IV DECREASED GLUCOSE Last administered on 01/23/17 04:58; Admin Dose 50 ML; Start 12/02/16 at 23:00 Glucagon (Glucagen) 1 mg Q15M PRN IM DECREASED GLUCOSE; Start 12/02/16 at 23:00 Glucose (Glutose) 15 gm Q15M PRN BUCCAL DECREASED GLUCOSE; Start 12/02/16 at 23 :00 Gabapentin (Neurontin) 800 mg TID PO Last administered on 12/08/16 20:33; Admin Dose 800 MG; Start 12/03/16 at 09:00; Status Future Hold Benazepril HCl (Lotensin) 10 mg DAILY PO Last administered on 12/07/16 08:26; Admin Dose 10 MG; Start 12/04/16 at 09:00; Status Future Hold Acetaminophen (Tylenol Supp) 650 mg Q6H PRN [place] ELEVATED TEMPERATURE Last administered on 01/13/17 20:32; Admin Dose 650 MG; Start 12/09/16 at 17:00 Hydralazine HCl (Apresoline) 10 mg Q6H PRN IV SBP>150mm hg Last administered on 12/19/16 08:50; Admin Dose 10 MG; Start 12/11/16 at 10:30 Morphine Sulfate (morphine) 2 mg Q2H PRN IV PAIN LEVEL 4-7; Start 12/13/16 at 10 :00 Collagenase (Santyl) 1 applic DAILY TOP Last administered on 01/30/17 08:19; Admin Dose 1 APPLIC; Start 01/04/17 at 09:00 Metoprolol Tartrate (Lopressor) 5 mg Q4 PRN IV FOR H.R>110; Start 01/12/17 at 17:30 Acetaminophen (Tylenol Liquid) 650 mg Q6H PRN NGT PAIN AND [place] ELEVATED TEMP Last administered on 01/28/17 06:13; Admin Dose 650 MG; Start 01/13/17 at 23:30 Apixaban (Eliquis) 2.5 mg BID NGT Last administered on 01/30/17 08:18; Admin Dose 2.5 MG; Start 01/13/17 at 21:00; Status Future hold Acetaminophen/ Hydrocodone Bitart ([place] (5/325)) 1 tab Q6H PRN NGT PAIN LEVEL 4-7; Start 01/13/17 at 23:30 Levetiracetam (Keppra Liquid) 1,000 mg DAILY NGT Last administered on 08:18; Admin Dose 1,000 MG; Start 01/14/17 at 09:00 Meclizine HCl (Antivert) 25 mg TID PRN NGT dizziness; Start 01/13/17 at 20:00 Zolpidem Tartrate (Ambien) 5 mg HS PRN NGT INSOMNIA; Start 01/13/17 at 20:00 Aspirin (Aspirin) 81 mg DAILY NGT Last administered on 01/30/17 08:18; Admin Dose 81 MG; Start 01/14/17 at 09:00 Docusate Sodium (Colace Liquid Cup) 100 mg BID NGT Last administered on 08:18; Admin Dose 100 MG; Start 01/13/17 at 21:00 Pantoprazole (Protonix Iv) 40 mg DAILY@06 IV Last administered on 01/30/17 05: 24; Admin Dose 40 MG; Start 01/14/17 at 06:00 Amiodarone HCl (Cordarone) 200 mg Q8 NGT Last administered on 01/30/17 05:25; Admin Dose 200 MG; Start 01/17/17 at 14:00 Metoprolol Tartrate (Lopressor) 12.5 mg BID NGT Last administered on 01/30/17 08:18; Admin Dose 12.5 MG; Start 01/24/17 at 21:00 Insulin Aspart (Novolog Insulin Pen) NOVOLOG *MODERATE* ALGORI... Q4 SC Last administered on 01/30/17 08:55; Admin Dose 4 UNIT; Start 01/25/17 at 13:00 Insulin Glargine (Lantus) 30 unit DAILY@20 SC Last administered on 01/29/17 21 :07; Admin Dose 30 UNIT; Start 01/26/17 at 20:00 YULIANA SIMMONS Jan 30, 2017 12:20
--- NOTE | 2017-01-30 12:26 | CONS ---
Date/Time of Note Date/Time of Note DATE: 01/30/17 TIME: 12:24 Assessment/Plan Assessment/Plan Additional Assessment/Plan Sepsis PAF in NSR CHF Severe Aortic Stenosis Respiratory failure s/p extubation Osteomyelitis Cellulitis left foot Diabetic foot Diabetes Tobacco abuse Hemodynamically stable Continue Vent support Avoid Diuretics Avoid Volume Overload Continue Metoprolol Continue Amiodarone Continue Eliquis Continue Heparin Continue Insulin Continue antibiotics HD as scheduled Consultation Date/Type/Reason Admit Date/Time Dec 02, 2016 at 21:01 Initial Consult Date 12/08/16 Type of Consultation: Pulmonary/critical care Referring Provider: VIET PARKER MD Exam/Review of Systems Vital Signs Vitals Vital Signs Date Time Temp Pulse Resp B/P Pulse Ox O2 Delivery O2 Flow Rate FiO2 01/30/17 12:00 98.6 64 7 127/63 100 Mechanical Ventilator 01/30/17 08:36 30 Intake and Output 01/29/17 01/29/17 01/30/17 15:00 23:00 07:00 Intake Total 340 ml 140 ml 490 ml Output Total 40 ml 160 ml 450 ml Balance 300 ml -20 ml 40 ml Exam Constitutional: non-verbal Neck: other (Trach on Vent) Respiratory: other (mechanial breath sounds heard bilaterally) Cardiovascular: regular rate and rhythm Gastrointestinal: nl liver, spleen, non-tender, soft Extremities: gangrenous foot Results Result Diagram: 01/29/175 01/29/17 0425 Results 24 hrs Laboratory Tests Test 01/29/17 12:35 01/29/17 20:58 01/30/17 00:50 01/30/17 04:38 Bedside Glucose 205 191 164 157 Test 01/30/17 08:39 Bedside Glucose 189 Medications Medications Current Medications Ondansetron HCl (Zofran Inj) 4 mg Q6H PRN IV NAUSEA AND/OR VOMITING Last administered on 12/13/16 01:13; Admin Dose 4 MG; Start 12/02/16 at 22:30 Miscellaneous Information 1 ea NOTE XX ; Start 12/02/16 at 23:00 Glucose (Glutose) 15 gm Q15M PRN PO DECREASED GLUCOSE; Start 12/02/16 at 23:00 Glucose (Glutose) 22.5 gm Q15M PRN PO DECREASED GLUCOSE; Start 12/02/16 at 23: 00 Dextrose (D50w Syringe) 25 ml Q15M PRN IV DECREASED GLUCOSE Last administered on 01/26/17 05:21; Admin Dose 25 ML; Start 12/02/16 at 23:00 Dextrose (D50w Syringe) 50 ml Q15M PRN IV DECREASED GLUCOSE Last administered on 01/23/17 04:58; Admin Dose 50 ML; Start 12/02/16 at 23:00 Glucagon (Glucagen) 1 mg Q15M PRN IM DECREASED GLUCOSE; Start 12/02/16 at 23:00 Glucose (Glutose) 15 gm Q15M PRN BUCCAL DECREASED GLUCOSE; Start 12/02/16 at 23 :00 Gabapentin (Neurontin) 800 mg TID PO Last administered on 12/08/16 20:33; Admin Dose 800 MG; Start 12/03/16 at 09:00; Status Future Hold Benazepril HCl (Lotensin) 10 mg DAILY PO Last administered on 12/07/16 08:26; Admin Dose 10 MG; Start 12/04/16 at 09:00; Status Future Hold Acetaminophen (Tylenol Supp) 650 mg Q6H PRN [place] ELEVATED TEMPERATURE Last administered on 01/13/17 20:32; Admin Dose 650 MG; Start 12/09/16 at 17:00 Hydralazine HCl (Apresoline) 10 mg Q6H PRN IV SBP>150mm hg Last administered on 12/19/16 08:50; Admin Dose 10 MG; Start 12/11/16 at 10:30 Morphine Sulfate (morphine) 2 mg Q2H PRN IV PAIN LEVEL 4-7; Start 12/13/16 at 10 :00 Collagenase (Santyl) 1 applic DAILY TOP Last administered on 01/30/17 08:19; Admin Dose 1 APPLIC; Start 01/04/17 at 09:00 Metoprolol Tartrate (Lopressor) 5 mg Q4 PRN IV FOR H.R>110; Start 01/12/17 at 17:30 Acetaminophen (Tylenol Liquid) 650 mg Q6H PRN NGT PAIN AND OR ELEVATED TEMP Last administered on 01/28/17 06:13; Admin Dose 650 MG; Start 01/13/17 at 23:30 Apixaban (Eliquis) 2.5 mg BID NGT Last administered on 01/30/17 08:18; Admin Dose 2.5 MG; Start 01/13/17 at 21:00; Status Future hold Acetaminophen/ Hydrocodone Bitart ([place] (5/325)) 1 tab Q6H PRN NGT PAIN LEVEL 4-7; Start 01/13/17 at 23:30 Levetiracetam (Keppra Liquid) 1,000 mg DAILY NGT Last administered on 08:18; Admin Dose 1,000 MG; Start 01/14/17 at 09:00 Meclizine HCl (Antivert) 25 mg TID PRN NGT dizziness; Start 01/13/17 at 20:00 Zolpidem Tartrate (Ambien) 5 mg HS PRN NGT INSOMNIA; Start 01/13/17 at 20:00 Aspirin (Aspirin) 81 mg DAILY NGT Last administered on 01/30/17 08:18; Admin Dose 81 MG; Start 01/14/17 at 09:00 Docusate Sodium (Colace Liquid Cup) 100 mg BID NGT Last administered on 08:18; Admin Dose 100 MG; Start 01/13/17 at 21:00 Pantoprazole (Protonix Iv) 40 mg DAILY@06 IV Last administered on 01/30/17 05: 24; Admin Dose 40 MG; Start 01/14/17 at 06:00 Amiodarone HCl (Cordarone) 200 mg Q8 NGT Last administered on 01/30/17 05:25; Admin Dose 200 MG; Start 01/17/17 at 14:00 Metoprolol Tartrate (Lopressor) 12.5 mg BID NGT Last administered on 01/30/17 08:18; Admin Dose 12.5 MG; Start 01/24/17 at 21:00 Insulin Aspart (Novolog Insulin Pen) NOVOLOG *MODERATE* [place]I... Q4 SC Last administered on 01/30/17 08:55; Admin Dose 4 UNIT; Start 01/25/17 at 13:00 Insulin Glargine (Lantus) 30 unit DAILY@20 SC Last administered on 01/29/17 21 :07; Admin Dose 30 UNIT; Start 01/26/17 at 20:00 VIRI ROY M.D. Jan 30, 2017 12:26
[2017-01-30 14:17] LABS: ADD SCAN DIFF NO
[2017-01-30 14:18] LABS: BASOPHILS % 0.2 % (0.0-2.0); EOSINOPHILS # 0.1 10^3/ul (0.0-0.5); EOSINOPHILS % 0.6 % (0.0-7.0); HEMATOCRIT 24.5 % (42.0-52.0); HEMOGLOBIN 7.9 g/dl (14.0-18.0); LYMPHOCYTES # 1.3 10^3/ul (0.8-2.9); MEAN CORPUSCULAR HGB CONC 32.2 g/dl (32.0-37.0); MEAN CORPUSCULAR VOLUME 93.2 fl (82.0-101.0); MEAN PLATELET VOLUME 9.6 fl (7.4-10.4); MONOCYTE # 0.7 10^3/ul (0.3-0.9); NEUTROPHIL # 8.1 10^3/ul (1.6-7.5); NEUTROPHILS % 78.2 % (39.0-77.0); PLATELET COUNT 184 10^3/UL (140-415); RED BLOOD COUNT 2.63 10^6/ul (4.70-6.10); RED CELL DISTRIBUTION WIDTH 14.4 % (11.5-14.5); WHITE BLOOD COUNT 10.3 10^3/ul (4.8-10.8)
[2017-01-30] MEDS: INSULIN GLARGINE [LANtus] 3 ML PEN SC SCH (20:35)
[2017-01-31] VITALS (45 sets, daily range): BP systolic 85–152; BP diastolic 42–69; PULSE 58–91; RESP 0–17
[2017-01-31] MEDS: INSULIN ASPART [NOVOLOG] 3 ML PEN SC SCH ×6 (00:42→21:43)
[2017-01-31] MEDS: ALBUTEROL 18 GM INHALER INH SCH ×4 (03:27→20:32)
[2017-01-31] MEDS: AMIODARONE 200 MG TAB NGT SCH ×3 (05:36→21:44)
[2017-01-31] MEDS: PANTOPRAZOLE 40 MG INJ IV SCH (05:36)
[2017-01-31 06:39] LABS: ADD SCAN DIFF NO
[2017-01-31 06:50] LABS: BASOPHILS % 0.2 % (0.0-2.0); EOSINOPHILS # 0.1 10^3/ul (0.0-0.5); EOSINOPHILS % 0.5 % (0.0-7.0); HEMOGLOBIN 9.3 g/dl (14.0-18.0); LYMPHOCYTES # 1.8 10^3/ul (0.8-2.9); LYMPHOCYTES % 18.6 % (15.0-51.0); MEAN CORPUSCULAR HEMOGLOBIN 29.9 pg (29.0-33.0); MEAN CORPUSCULAR HGB CONC 32.1 g/dl (32.0-37.0); MEAN CORPUSCULAR VOLUME 93.2 fl (82.0-101.0); MEAN PLATELET VOLUME 10.3 fl (7.4-10.4); MONOCYTE # 0.7 10^3/ul (0.3-0.9); MONOCYTES % 7.3 % (0.0-11.0); NEUTROPHIL # 7.1 10^3/ul (1.6-7.5); NEUTROPHILS % 72.8 % (39.0-77.0); PLATELET COUNT 194 10^3/UL (140-415); RED BLOOD COUNT 3.11 10^6/ul (4.70-6.10); WHITE BLOOD COUNT 9.8 10^3/ul (4.8-10.8)
[2017-01-31 07:06] LABS: ALBUMIN/GLOBULIN RATIO 1.05; BILIRUBIN,INDIRECT 0.9 mg/dl (0-1.1); BILIRUBIN,TOTAL 0.9 mg/dl (0.2-1.3); CREATININE 1.86 mg/dl (0.61-1.24); POTASSIUM 4.5 mmol/L (3.5-5.1); TOTAL PROTEIN 7.8 g/dl (6.1-8.1)
[2017-01-31] MEDS: LEVETIRACETAM (100 MG/ML) 5ML CUP NGT SCH (09:34)
[2017-01-31] MEDS: DOCUSATE SODIUM 10 MG/ML (10ML CUP) NGT SCH ×2 (09:34→21:09)
[2017-01-31] MEDS: METOPROLOL 25 MG TAB NGT SCH ×2 (09:34→21:00)
[2017-01-31] MEDS: COLLAGENASE 30 GM TUBE TOP SCH (09:35)
--- NOTE | 2017-01-31 10:29 | CONS ---
Date/Time of Note Date/Time of Note DATE: 01/31/17 TIME: :27 Assessment/Plan Assessment/Plan Chief Complaint/Hosp Course - recurrent cardiopulmonary arrest on 12/09/2016 and on 01/08/2017 - sepsis due to possible tracheobronchitis/pneumonia, resolving - possible tracheobronchitis/pneumonia due to pseudomonas, completed cefepime for this - s/p recurrent sepsis - 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 Blood cultures from HD catheter on 12/13/2016 are negative to date. 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 MRI on 12/06/2016 and bone scan on showed 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 and left fourth proximal phalanx. superficial swab grew inna only. At present, no e/o persistent infection - recurrent pleural effusion - s/p right pleural effusion s/p thoracentesis with .9L removed on 12/16/2016; ( Note: there is no pleural fluid cx since orders were placed after Right thoracentesis, and Left thoracentesis was not performed on 12/17/16 d/t insufficient fluid) - funguria - ARANZA on CKD that progressed to ESRD and started on HD from 12/09/2016 - oliguria - improved - A fib -> PAF - small nonreversible perfusion abnormality in the inferoapical and inferior carver; EF 36% per Lexiscan 12/24/2016 - severe , EF 40-45% per TTE 12/17/16 - DM - Hgb A1c 8.7% - HTN associated with DM - recurrent episodes of respiratory failure - acute encephalopathy with anoxic brain injury - unstageable decubitus ulcer of coccyx, no evidence of infection - urinary retention NOTE: Pt completed 6 weeks (12/03/2016-01/15/2017) of antibiotics to treat 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 and left fourth proximal phalanx ; s/p pip/tazo 12/03/16-01/08/17; linezolid 01/08/17-01/20/17; caspofungin 01/12/17-01/21/17. recommendations: - repeat panculture if temp >100.4F - I recommend wound care consult for the coccygeal decubitus ulcer - monitor Pt off systemic antibiotics management d/w Pt's RN the critical care time I took to care for this Pt today was from 0920 to 1000 Problems: Consultation Date/Type/Reason Admit Date/Time Dec 02, 2016 at 21:01 Initial Consult Date 12/03/16 Type of Consultation: ID Referring Provider: VIET PARKER MD 24 HR Interval Summary Subjective hx not possible: pt non-verbal, pt critical, pt critical status Exam/Review of Systems Vital Signs Vitals Vital Signs Date Time Temp Pulse Resp B/P Pulse Ox O2 Delivery O2 Flow Rate FiO2 01/31/17 08:00 30 01/31/17 06:00 72 112/59 100 01/31/17 05:50 16 01/31/17 04:00 98.7 01/31/17 00:00 Mechanical Ventilator Intake and Output 01/30/17 01/30/17 01/31/17 15:00 23:00 07:00 Intake Total 290 ml 90 ml 750 ml Output Total 200 ml 200 ml 600 ml Balance 90 ml -110 ml 150 ml Exam Constitutional: frail, non-verbal Psych: confusion Head: atraumatic, normocephalic Eyes: nl conjunctiva, nl lids ENMT: nl external ears & nose Neck: other (+trach with serosanguinous fluid) Respiratory: crackles/rales Cardiovascular: nl pulses, regular rate and rhythm Gastrointestinal: non-tender, soft Genitourinary - Male: other (FC) Musculoskeletal: nl extremities to inspection Extremities: No edema Neurological: confused, lethargic Skin: rash or lesions (coccyx, unstageable) Results Result Diagram: 01/31/17 0534 01/31/17 0534 Results 24 hrs Laboratory Tests Test 01/30/17 12:31 01/30/17 14:10 01/30/17 16:56 01/30/17 20:32 Bedside Glucose 160 149 165 White Blood Count 10.3 Red Blood Count 2.63 L Hemoglobin 7.9 L Hematocrit 24.5 L Mean Corpuscular Volume 93.2 Mean Corpuscular Hemoglobin 30.0 Mean Corpuscular Hemoglobin Concent 32.2 Red Cell Distribution Width 14.4 Platelet Count 184 Mean Platelet Volume 9.6 Neutrophils % 78.2 H Lymphocytes % 13.0 L Monocytes % 7.0 Eosinophils % 0.6 Basophils % 0.2 Nucleated Red Blood Cells % 0.0 Neutrophils # 8.1 H Lymphocytes # 1.3 Monocytes # 0.7 Eosinophils # 0.1 Basophils # 0.0 Nucleated Red Blood Cells # 0.0 Test 01/31/17 00:39 01/31/17 05:11 01/31/17 05:32 01/31/17 05:34 Bedside Glucose 136 95 Lab Scanned Report BLOOD TRANSFUSION White Blood Count 9.8 Red Blood Count 3.11 L Hemoglobin 9.3 L Hematocrit 29.0 L Mean Corpuscular Volume 93.2 Mean Corpuscular Hemoglobin 29.9 Mean Corpuscular Hemoglobin Concent 32.1 Red Cell Distribution Width 15.0 H Platelet Count 194 Mean Platelet Volume 10.3 Neutrophils % 72.8 Lymphocytes % 18.6 Monocytes % 7.3 Eosinophils % 0.5 Basophils % 0.2 Nucleated Red Blood Cells % 0.0 Neutrophils # 7.1 Lymphocytes # 1.8 Monocytes # 0.7 Eosinophils # 0.1 Basophils # 0.0 Nucleated Red Blood Cells # 0.0 Sodium Level 148 H Potassium Level 4.5 Chloride Level 105 Carbon Dioxide Level 30 Anion Gap 18 H Blood Urea Nitrogen 65 H Creatinine 1.86 H Glucose Level 85 Calcium Level 9.0 Total Bilirubin 0.9 Direct Bilirubin 0.00 Indirect Bilirubin 0.9 Aspartate Amino Transf (AST/SGOT) 38 Alanine Aminotransferase (ALT/SGPT) 26 Alkaline Phosphatase 89 Total Protein 7.8 Albumin 4.0 Globulin 3.80 H Albumin/Globulin Ratio 1.05 Test 01/31/17 09:31 Bedside Glucose 108 Medications Medications Current Medications Ondansetron HCl (Zofran Inj) 4 mg Q6H PRN IV NAUSEA AND/OR VOMITING Last administered on 12/13/16 01:13; Admin Dose 4 MG; Start 12/02/16 at 22:30 Miscellaneous Information 1 ea NOTE XX ; Start 12/02/16 at 23:00 Glucose (Glutose) 15 gm Q15M PRN PO DECREASED GLUCOSE; Start 12/02/16 at 23:00 Glucose (Glutose) 22.5 gm Q15M PRN PO DECREASED GLUCOSE; Start 12/02/16 at 23: 00 Dextrose (D50w Syringe) 25 ml Q15M PRN IV DECREASED GLUCOSE Last administered on 01/26/17 05:21; Admin Dose 25 ML; Start 12/02/16 at 23:00 Dextrose (D50w Syringe) 50 ml Q15M PRN IV DECREASED GLUCOSE Last administered on 01/23/17 04:58; Admin Dose 50 ML; Start 12/02/16 at 23:00 Glucagon (Glucagen) 1 mg Q15M PRN IM DECREASED GLUCOSE; Start 12/02/16 at 23:00 Glucose (Glutose) 15 gm Q15M PRN BUCCAL DECREASED GLUCOSE; Start 12/02/16 at 23 :00 Gabapentin (Neurontin) 800 mg TID PO Last administered on 12/08/16 20:33; Admin Dose 800 MG; Start 12/03/16 at 09:00; Status Future Hold Benazepril HCl (Lotensin) 10 mg DAILY PO Last administered on 12/07/16 08:26; Admin Dose 10 MG; Start 12/04/16 at 09:00; Status Future Hold Acetaminophen (Tylenol Supp) 650 mg Q6H PRN [place] ELEVATED TEMPERATURE Last administered on 01/13/17 20:32; Admin Dose 650 MG; Start 12/09/16 at 17:00 Hydralazine HCl (Apresoline) 10 mg Q6H PRN IV SBP>150mm hg Last administered on 12/19/16 08:50; Admin Dose 10 MG; Start 12/11/16 at 10:30 Morphine Sulfate (morphine) 2 mg Q2H PRN IV PAIN LEVEL 4-7; Start 12/13/16 at 10 :00 Collagenase (Santyl) 1 applic DAILY TOP Last administered on 01/31/17 09:35; Admin Dose 1 APPLIC; Start 01/04/17 at 09:00 Metoprolol Tartrate (Lopressor) 5 mg Q4 PRN IV FOR H.R>110; Start 01/12/17 at 17:30 Acetaminophen (Tylenol Liquid) 650 mg Q6H PRN NGT PAIN AND [place] ELEVATED TEMP Last administered on 01/28/17 06:13; Admin Dose 650 MG; Start 01/13/17 at 23:30 Apixaban (Eliquis) 2.5 mg BID NGT Last administered on 01/30/17 08:18; Admin Dose 2.5 MG; Start 01/13/17 at 21:00; Status Future Hold Acetaminophen/ Hydrocodone Bitart ([place] (5/325)) 1 tab Q6H PRN NGT PAIN LEVEL 4-7; Start 01/13/17 at 23:30 Levetiracetam (Keppra Liquid) 1,000 mg DAILY NGT Last administered on 09:34; Admin Dose 1,000 MG; Start 01/14/17 at 09:00 Meclizine HCl (Antivert) 25 mg TID PRN NGT dizziness; Start 01/13/17 at 20:00 Zolpidem Tartrate (Ambien) 5 mg HS PRN NGT INSOMNIA; Start 01/13/17 at 20:00 Aspirin (Aspirin) 81 mg DAILY NGT Last administered on 01/30/17 08:18; Admin Dose 81 MG; Start 01/14/17 at 09:00; Status Future Hold Docusate Sodium (Colace Liquid Cup) 100 mg BID NGT Last administered on 09:34; Admin Dose 100 MG; Start 01/13/17 at 21:00 Pantoprazole (Protonix Iv) 40 mg DAILY@06 IV Last administered on 01/31/17 05: 36; Admin Dose 40 MG; Start 01/14/17 at 06:00 Amiodarone HCl (Cordarone) 200 mg Q8 NGT Last administered on 01/30/17 13:12; Admin Dose 200 MG; Start 01/17/17 at 14:00 Metoprolol Tartrate (Lopressor) 12.5 mg BID NGT Last administered on 01/31/17 09:34; Admin Dose 12.5 MG; Start 01/24/17 at 21:00 Insulin Aspart (Novolog Insulin Pen) NOVOLOG *MODERATE* ALGORI... Q4 SC Last administered on 01/30/17 20:35; Admin Dose 2 UNIT; Start 01/25/17 at 13:00 Insulin Glargine (Lantus) 30 unit DAILY@20 SC Last administered on 6/18/17at 20 :35; Admin Dose 30 UNIT; Start 01/26/17 at 20:00 CHRISTY LOPEZ M.D. Jan 31, 2017 10:29
--- NOTE | 2017-01-31 10:43 | CONS ---
Date/Time of Note Date/Time of Note DATE: 01/31/17 TIME: 10:39 Assessment/Plan Assessment/Plan Chief Complaint/Hosp Course IMPRESSION: 1. Atrial fibrillation-Having episodes of PAF with reasonable rate control 2. Hypotension-borderline and labile 3. Abnormal electrocardiogram with inferolateral T-wave inversions. 4. Respiratory failure-s/p trach placement 5. Nonhealing toe ulceration-vascular following 6. Peripheral arterial disease by arterial ultrasound of the lower extremities this admission. 7. Diabetes mellitus. 8. Fevers. 9. Positive troponin-downtrended 10.Bradycardia-improved/stable 11.-severe by echo 12.Cardiomyopathy-EF 40-45% by echo/36% by stress with no ischemia but positive scar. EF <30% by echo post arrest 14.Encephalopathy-anoxic 15. s/p cardiopulmonary arrest 01/08 Recc: -Tele -serial ecg -HD for volume removal as tolerated -Continue baby asa as tolerated only -eliquis held in anticiation of possible G tube placement and due to trach site bleeding -Continue PO amio in attempt to maintain SR -Continue BB as tolerated only following HR/BP closely -Will hold on afterload reduction given severe and thus fixed afterload at valve orifice Problems: Consultation Date/Type/Reason Admit Date/Time Dec 02, 2016 at 21:01 Initial Consult Date 12/03/16 Type of Consultation: Cardiology Reason for Consultation /cardiomyopathy/AF Referring Provider: VIET PARKER MD Exam/Review of Systems Vital Signs Vitals Vital Signs Date Time Temp Pulse Resp B/P Pulse Ox O2 Delivery O2 Flow Rate FiO2 01/31/17 08:00 30 01/31/17 06:00 72 112/59 100 01/31/17 05:50 16 01/31/17 04:00 98.7 01/31/17 00:00 Mechanical Ventilator Intake and Output 01/30/17 01/30/17 01/31/17 15:00 23:00 07:00 Intake Total 290 ml 90 ml 750 ml Output Total 200 ml 200 ml 600 ml Balance 90 ml -110 ml 150 ml Exam Review of Systems: CONSTITUTIONAL: No fevers, chills. PULMONARY: trached CARDIOVASCULAR: No obvious chest pain/palpitations GASTROINTESTINAL: No nausea/vomiting. GENITOURINARY: No hematuria/dysuria. MUSCULOSKELETAL: No obvious myagias/arthalgias. PSYCHIATRIC: NO documented depression. NEUROLOGIC: Encephalopathy Constitutional: other (encephalopathic) Psych: no complaints Head: normocephalic ENMT: mucosa pink and moist Neck: jvd (9 cm water), supple Respiratory: other (upper airway rhochi) Cardiovascular: regular rate and rhythm Gastrointestinal: non-tender, soft Musculoskeletal: muscle tone (normal) Extremities: edema (none) Neurological: other (encephalopathic) Results Result Diagram: 01/31/17 0534 01/31/17 0534 Results 24 hrs Laboratory Tests Test 01/30/17 12:31 01/30/17 14:10 01/30/17 16:56 01/30/17 20:32 Bedside Glucose 160 149 165 White Blood Count 10.3 Red Blood Count 2.63 L Hemoglobin 7.9 L Hematocrit 24.5 L Mean Corpuscular Volume 93.2 Mean Corpuscular Hemoglobin 30.0 Mean Corpuscular Hemoglobin Concent 32.2 Red Cell Distribution Width 14.4 Platelet Count 184 Mean Platelet Volume 9.6 Neutrophils % 78.2 H Lymphocytes % 13.0 L Monocytes % 7.0 Eosinophils % 0.6 Basophils % 0.2 Nucleated Red Blood Cells % 0.0 Neutrophils # 8.1 H Lymphocytes # 1.3 Monocytes # 0.7 Eosinophils # 0.1 Basophils # 0.0 Nucleated Red Blood Cells # 0.0 Test 01/31/17 00:39 01/31/17 05:11 01/31/17 05:32 01/31/17 05:34 Bedside Glucose 136 95 Lab Scanned Report BLOOD TRANSFUSION White Blood Count 9.8 Red Blood Count 3.11 L Hemoglobin 9.3 L Hematocrit 29.0 L Mean Corpuscular Volume 93.2 Mean Corpuscular Hemoglobin 29.9 Mean Corpuscular Hemoglobin Concent 32.1 Red Cell Distribution Width 15.0 H Platelet Count 194 Mean Platelet Volume 10.3 Neutrophils % 72.8 Lymphocytes % 18.6 Monocytes % 7.3 Eosinophils % 0.5 Basophils % 0.2 Nucleated Red Blood Cells % 0.0 Neutrophils # 7.1 Lymphocytes # 1.8 Monocytes # 0.7 Eosinophils # 0.1 Basophils # 0.0 Nucleated Red Blood Cells # 0.0 Sodium Level 148 H Potassium Level 4.5 Chloride Level 105 Carbon Dioxide Level 30 Anion Gap 18 H Blood Urea Nitrogen 65 H Creatinine 1.86 H Glucose Level 85 Calcium Level 9.0 Total Bilirubin 0.9 Direct Bilirubin 0.00 Indirect Bilirubin 0.9 Aspartate Amino Transf (AST/SGOT) 38 Alanine Aminotransferase (ALT/SGPT) 26 Alkaline Phosphatase 89 Total Protein 7.8 Albumin 4.0 Globulin 3.80 H Albumin/Globulin Ratio 1.05 Test 01/31/17 09:31 Bedside Glucose 108 Medications Medications Current Medications Ondansetron HCl (Zofran Inj) 4 mg Q6H PRN IV NAUSEA AND/OR VOMITING Last administered on 12/13/16 01:13; Admin Dose 4 MG; Start 12/02/16 at 22:30 Miscellaneous Information 1 ea NOTE XX ; Start 12/02/16 at 23:00 Glucose (Glutose) 15 gm Q15M PRN PO DECREASED GLUCOSE; Start 12/02/16 at 23:00 Glucose (Glutose) 22.5 gm Q15M PRN PO DECREASED GLUCOSE; Start 12/02/16 at 23: 00 Dextrose (D50w Syringe) 25 ml Q15M PRN IV DECREASED GLUCOSE Last administered on 01/26/17 05:21; Admin Dose 25 ML; Start 12/02/16 at 23:00 Dextrose (D50w Syringe) 50 ml Q15M PRN IV DECREASED GLUCOSE Last administered on 01/23/17 04:58; Admin Dose 50 ML; Start 12/02/16 at 23:00 Glucagon (Glucagen) 1 mg Q15M PRN IM DECREASED GLUCOSE; Start 12/02/16 at 23:00 Glucose (Glutose) 15 gm Q15M PRN BUCCAL DECREASED GLUCOSE; Start 12/02/16 at 23 :00 Gabapentin (Neurontin) 800 mg TID PO Last administered on 12/08/16 20:33; Admin Dose 800 MG; Start 12/03/16 at 09:00; Status Future Hold Benazepril HCl (Lotensin) 10 mg DAILY PO Last administered on 12/07/16 08:26; Admin Dose 10 MG; Start 12/04/16 at 09:00; Status Future Hold Acetaminophen (Tylenol Supp) 650 mg Q6H PRN [place] ELEVATED TEMPERATURE Last administered on 01/13/17 20:32; Admin Dose 650 MG; Start 12/09/16 at 17:00 Hydralazine HCl (Apresoline) 10 mg Q6H PRN IV SBP>150mm hg Last administered on 12/19/16 08:50; Admin Dose 10 MG; Start 12/11/16 at 10:30 Morphine Sulfate (morphine) 2 mg Q2H PRN IV PAIN LEVEL 4-7; Start 12/13/16 at 10 :00 Collagenase (Santyl) 1 applic DAILY TOP Last administered on 01/31/17 09:35; Admin Dose 1 APPLIC; Start 01/04/17 at 09:00 Metoprolol Tartrate (Lopressor) 5 mg Q4 PRN IV FOR H.R>110; Start 01/12/17 at 17:30 Acetaminophen (Tylenol Liquid) 650 mg Q6H PRN NGT PAIN AND [place] ELEVATED TEMP Last administered on 01/28/17 06:13; Admin Dose 650 MG; Start 01/13/17 at 23:30 Apixaban (Eliquis) 2.5 mg BID NGT Last administered on 01/30/17 08:18; Admin Dose 2.5 MG; Start 01/13/17 at 21:00; Status Future Hold Acetaminophen/ Hydrocodone Bitart ([place]ise (5/325)) 1 tab Q6H PRN NGT PAIN LEVEL 4-7; Start 01/13/17 at 23:30 Levetiracetam (Keppra Liquid) 1,000 mg DAILY NGT Last administered on 09:34; Admin Dose 1,000 MG; Start 01/14/17 at 09:00 Meclizine HCl (Antivert) 25 mg TID PRN NGT dizziness; Start 01/13/17 at 20:00 Zolpidem Tartrate (Ambien) 5 mg HS PRN NGT INSOMNIA; Start 01/13/17 at 20:00 Aspirin (Aspirin) 81 mg DAILY NGT Last administered on 01/30/17 08:18; Admin Dose 81 MG; Start 01/14/17 at 09:00; Status Future Hold Docusate Sodium (Colace Liquid Cup) 100 mg BID NGT Last administered on 09:34; Admin Dose 100 MG; Start 01/13/17 at 21:00 Pantoprazole (Protonix Iv) 40 mg DAILY@06 IV Last administered on 01/31/17 05: 36; Admin Dose 40 MG; Start 01/14/17 at 06:00 Amiodarone HCl (Cordarone) 200 mg Q8 NGT Last administered on 01/30/17 13:12; Admin Dose 200 MG; Start 01/17/17 at 14:00 Metoprolol Tartrate (Lopressor) 12.5 mg BID NGT Last administered on 01/31/17 09:34; Admin Dose 12.5 MG; Start 01/24/17 at 21:00 Insulin Aspart (Novolog Insulin Pen) NOVOLOG *MODERATE* ALGORI... Q4 SC Last administered on 01/30/17 20:35; Admin Dose 2 UNIT; Start 01/25/17 at 13:00 Insulin Glargine (Lantus) 30 unit DAILY@20 SC Last administered on 01/30/17 20 :35; Admin Dose 30 UNIT; Start 01/26/17 at 20:00 VICENTE LESLIE Jan 31, 2017 10:43
[2017-01-31 12:00] LABS: INR 1.31; PARTIAL THROMBOPLASTIN TIME 33.7 Sec (25.0-35.0); PROTIME 16.4 Sec (12.2-14.2); PT RATIO 1.3
--- NOTE | 2017-01-31 12:23 | CONS ---
Date/Time of Note Date/Time of Note DATE: 01/31/17 TIME: 12:20 Assessment/Plan Assessment/Plan Additional Assessment/Plan Ventilator setting; AC of 16, tidal volume 500, PEEP of 5, 30% FiO2. Assessment recommendations; 1. Patient admitted for recurrent respiratory failure status post CPR with resulting severe anoxic brain injury. Status post tracheostomy. 2. Tracheal bleed. Patient taken off anticoagulation as well as aspirin. 3. Renal failure, on hemodialysis. 4. Lower extremity cellulitis. Patient off antibiotics now. Continue current supportive care. Patient scheduled for G-tube placement tomorrow. Prognosis is poor. Consultation Date/Type/Reason Admit Date/Time Dec 02, 2016 at 21:01 Initial Consult Date 12/03/16 Type of Consultation: Pulmonary/critical care Referring Provider: VIET PARKER MD 24 HR Interval Summary Free Text/Dictation Patient condition is unchanged. Remains unresponsive. Has remained hemodynamically stable. General exam; elderly male, on ventilator via tracheostomy. Exam/Review of Systems Vital Signs Vitals Vital Signs Date Time Temp Pulse Resp B/P Pulse Ox O2 Delivery O2 Flow Rate FiO2 01/31/17 11:00 65 16 127/61 97 Mechanical Ventilator Trach Collar 01/31/17 11:00 30 01/31/17 08:00 98.5 Intake and Output 01/30/17 01/30/17 01/31/17 15:00 23:00 07:00 Intake Total 290 ml 90 ml 750 ml Output Total 200 ml 200 ml 625 ml Balance 90 ml -110 ml 125 ml Exam HEENT exam; supple neck, tracheostomy placed with mild bleeding around the insertion site. Patient is edentulous. No neck masses. No thyromegaly. Pupils are small bilaterally. Chest exam; diminished but clear vessel. No added sound. S1-S2 audible, no murmurs. Regular rhythm. Abdomen examination; soft, no organomegaly. Bowel sounds audible. Extremity examination; no peripheral edema. [employer] A[employer] examination; patient remains unresponsive. Results Result Diagram: 01/31/17 0534 01/31/17 0534 Results 24 hrs Laboratory Tests Test 01/30/17 12:31 01/30/17 14:10 01/30/17 16:56 01/30/17 20:32 Bedside Glucose 160 149 165 White Blood Count 10.3 Red Blood Count 2.63 L Hemoglobin 7.9 L Hematocrit 24.5 L Mean Corpuscular Volume 93.2 Mean Corpuscular Hemoglobin 30.0 Mean Corpuscular Hemoglobin Concent 32.2 Red Cell Distribution Width 14.4 Platelet Count 184 Mean Platelet Volume 9.6 Neutrophils % 78.2 H Lymphocytes % 13.0 L Monocytes % 7.0 Eosinophils % 0.6 Basophils % 0.2 Nucleated Red Blood Cells % 0.0 Neutrophils # 8.1 H Lymphocytes # 1.3 Monocytes # 0.7 Eosinophils # 0.1 Basophils # 0.0 Nucleated Red Blood Cells # 0.0 Test 01/31/17 00:39 01/31/17 05:11 01/31/17 05:32 01/31/17 05:34 Bedside Glucose 136 95 Lab Scanned Report BLOOD TRANSFUSION White Blood Count 9.8 Red Blood Count 3.11 L Hemoglobin 9.3 L Hematocrit 29.0 L Mean Corpuscular Volume 93.2 Mean Corpuscular Hemoglobin 29.9 Mean Corpuscular Hemoglobin Concent 32.1 Red Cell Distribution Width 15.0 H Platelet Count 194 Mean Platelet Volume 10.3 Neutrophils % 72.8 Lymphocytes % 18.6 Monocytes % 7.3 Eosinophils % 0.5 Basophils % 0.2 Nucleated Red Blood Cells % 0.0 Neutrophils # 7.1 Lymphocytes # 1.8 Monocytes # 0.7 Eosinophils # 0.1 Basophils # 0.0 Nucleated Red Blood Cells # 0.0 Sodium Level 148 H Potassium Level 4.5 Chloride Level 105 Carbon Dioxide Level 30 Anion Gap 18 H Blood Urea Nitrogen 65 H Creatinine 1.86 H Glucose Level 85 Calcium Level 9.0 Total Bilirubin 0.9 Direct Bilirubin 0.00 Indirect Bilirubin 0.9 Aspartate Amino Transf (AST/SGOT) 38 Alanine Aminotransferase (ALT/SGPT) 26 Alkaline Phosphatase 89 Total Protein 7.8 Albumin 4.0 Globulin 3.80 H Albumin/Globulin Ratio 1.05 Test 01/31/17 09:31 01/31/17 11:02 Bedside Glucose 108 Prothrombin Time 16.4 H Prothrombin Time Ratio 1.3 INR International Normalized Ratio 1.31 Activated Partial Thromboplast Time 33.7 Medications Medications Current Medications Ondansetron HCl (Zofran Inj) 4 mg Q6H PRN IV NAUSEA AND/OR VOMITING Last administered on 12/13/16t 01:13; Admin Dose 4 MG; Start 12/02/16 at 22:30 Miscellaneous Information 1 ea NOTE XX ; Start 12/02/16 at 23:00 Glucose (Glutose) 15 gm Q15M PRN PO DECREASED GLUCOSE; Start 12/02/16 at 23:00 Glucose (Glutose) 22.5 gm Q15M PRN PO DECREASED GLUCOSE; Start 12/02/16 at 23: 00 Dextrose (D50w Syringe) 25 ml Q15M PRN IV DECREASED GLUCOSE Last administered on 01/26/17 05:21; Admin Dose 25 ML; Start 12/02/16 at 23:00 Dextrose (D50w Syringe) 50 ml Q15M PRN IV DECREASED GLUCOSE Last administered on 01/23/17 04:58; Admin Dose 50 ML; Start 12/02/16 at 23:00 Glucagon (Glucagen) 1 mg Q15M PRN IM DECREASED GLUCOSE; Start 12/02/16 at 23:00 Glucose (Glutose) 15 gm Q15M PRN BUCCAL DECREASED GLUCOSE; Start 12/02/16 at 23 :00 Gabapentin (Neurontin) 800 mg TID PO Last administered on 12/08/16 20:33; Admin Dose 800 MG; Start 12/03/16 at 09:00; Status Future Hold Benazepril HCl (Lotensin) 10 mg DAILY PO Last administered on 12/07/16 08:26; Admin Dose 10 MG; Start 12/04/16 at 09:00; Status Future Hold Acetaminophen (Tylenol Supp) 650 mg Q6H PRN [place] ELEVATED TEMPERATURE Last administered on 01/13/17 20:32; Admin Dose 650 MG; Start 12/09/16 at 17:00 Hydralazine HCl (Apresoline) 10 mg Q6H PRN IV SBP>150mm hg Last administered on 12/19/16 08:50; Admin Dose 10 MG; Start 12/11/16 at 10:30 Morphine Sulfate (morphine) 2 mg Q2H PRN IV PAIN LEVEL 4-7; Start 12/13/16 at 10 :00 Collagenase (Santyl) 1 applic DAILY TOP Last administered on 01/31/17 09:35; Admin Dose 1 APPLIC; Start 01/04/17 at 09:00 Metoprolol Tartrate (Lopressor) 5 mg Q4 PRN IV FOR H.R>110; Start 01/12/17 at 17:30 Acetaminophen (Tylenol Liquid) 650 mg Q6H PRN NGT PAIN AND OR ELEVATED TEMP Last administered on 01/28/17 06:13; Admin Dose 650 MG; Start 01/13/17 at 23:30 Apixaban (Eliquis) 2.5 mg BID NGT Last administered on 01/30/17 08:18; Admin Dose 2.5 MG; Start 01/13/17 at 21:00; Status Future Hold Acetaminophen/ Hydrocodone Bitart ([place] (5/325)) 1 tab Q6H PRN NGT PAIN LEVEL 4-7; Start 01/13/17 at 23:30 Levetiracetam (Keppra Liquid) 1,000 mg DAILY NGT Last administered on 09:34; Admin Dose 1,000 MG; Start 01/14/17 at 09:00 Meclizine HCl (Antivert) 25 mg TID PRN NGT dizziness; Start 01/13/17 at 20:00 Zolpidem Tartrate (Ambien) 5 mg HS PRN NGT INSOMNIA; Start 01/13/17 at 20:00 Aspirin (Aspirin) 81 mg DAILY NGT Last administered on 01/30/17 08:18; Admin Dose 81 MG; Start 01/14/17 at 09:00; Status Future Hold Docusate Sodium (Colace Liquid Cup) 100 mg BID NGT Last administered on 09:34; Admin Dose 100 MG; Start 01/13/17 at 21:00 Pantoprazole (Protonix Iv) 40 mg DAILY@06 IV Last administered on 01/31/17 05: 36; Admin Dose 40 MG; Start 01/14/17 at 06:00 Amiodarone HCl (Cordarone) 200 mg Q8 NGT Last administered on 01/30/17 13:12; Admin Dose 200 MG; Start 01/17/17 at 14:00 Metoprolol Tartrate (Lopressor) 12.5 mg BID NGT Last administered on 01/31/17 09:34; Admin Dose 12.5 MG; Start 01/24/17 at 21:00 Insulin Aspart (Novolog Insulin Pen) NOVOLOG *MODERATE* ALGORI... Q4 SC Last administered on 01/30/17 20:35; Admin Dose 2 UNIT; Start 01/25/17 at 13:00 Insulin Glargine (Lantus) 30 unit DAILY@20 SC Last administered on 01/30/17t 20 :35; Admin Dose 30 UNIT; Start 01/26/17 at 20:00 Nystatin (Nystatin Susp) 5 ml Q6 PO ; Start 01/31/17 at 12:00 IKE MULLER Jan 31, 2017 12:23
[2017-01-31] MEDS: ALBUMIN HUMAN 25% 50 ML IV PRN (12:35)
[2017-01-31] MEDS: NYSTATIN SUSP 5 ML CUP PO SCH ×2 (12:54→17:52)
--- NOTE | 2017-01-31 14:30 | PN ---
DATE: 01/31/2017 INTERNAL MEDICINE PROGRESS NOTE SUBJECTIVE: Followup on patient with anoxic encephalopathy, status post cardiopulmonary arrest, end -stage renal disease, paroxysmal atrial fibrillation, and diabetes mellitus. The patient is current ly undergoing hemodialysis. The patient also had some oozing from tracheostomy. No fever, nausea, or vomiting reported. OBJECTIVE: VITAL SIGNS: Temperature is 98.5, pulse is 65, blood pressure 127/61, respiratory rate 16, oxygen s aturation is 97% on 30% FIO2. GENERAL: Well-developed, well-nourished male, currently on ventilatory support via tracheostomy. HEENT: Normocephalic. NECK: Supple. Tracheostomy at the base of the neck with a small amount of oozing of bloody secreti ons. LUNGS: Sounds slightly diminished at the bases. Clear in the upper lobes. HEART: Normal S1, S2. No murmurs, gallops, clicks, or rubs noted. ABDOMEN: Round, soft, nondistended, nontender. Bowel sounds present. EXTREMITIES: No edema, clubbing, cyanosis. SKIN: No apparent rash, petechiae noted. The patient has a left big toe wound. LABORATORY AND DIAGNOSTIC DATA FOR TODAY: CBC: White blood cells 9.8, hemoglobin 9.3, hematocrit 2 9.0, platelets 194. Chemistry: Sodium is 148, potassium 4.5, chloride 105, carbon dioxide 30, anio n gap 18, BUN is 65, creatinine 1.86, glucose 85. ASSESSMENT AND PLAN: 1. Anemia of blood loss. The patient is status post 1 unit of packed red blood cells yesterday. C ontinue to monitor hemoglobin and hematocrit today as hemoglobin is 9.3. 2. Dysphagia. The patient is pending G-tube placement. 3. Status post cardiopulmonary arrest on 12/09/2016 and 01/08/2017. Continue ventilatory support. 4. Status post tracheostomy on 01/23/2017. 5. Anoxic encephalopathy. 6. End-stage renal disease. Continue hemodialysis per nephrology. 7. Paroxysmal atrial fibrillation. Eliquis is currently held due to bleeding. 8. Diabetes mellitus type 2. Continue Lantus and NovoLog with sliding scale coverage with Accu-Maritza ks q. 4 hours. 9. Diabetic foot ulcer. Continue current wound care. 10. Osteomyelitis of the distal phalanx of the great left toe. Completed treatment for antibiotics . 11. Anoxic encephalopathy. Continue Keppra. 12. We will continue sequential compression device for deep venous thrombosis prophylaxis and Elmo nix for peptic ulcer disease prophylaxis. Further recommendations based on clinical course. Plan of care discussed with Dr. Heredia. Dictated By: KIMBERLY NOYOLA [employer] W[employer]ER for VIET HEREDIA MD SR/NTS Conf#: [id number] DID#: [id number]
[2017-01-31] MEDS ORDERED: ATROPINE 1 MG/10 ML SYRINGE ONE (15:28)
[2017-01-31 15:57] LABS: HEMATOCRIT 23.4 % (42.0-52.0); HEMOGLOBIN 7.8 g/dl (14.0-18.0)
--- NOTE | 2017-01-31 17:41 | CONS ---
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 Blood cultures from HD catheter on 12/13/2016 are negative to date. 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 MRI on 12/06/2016 and bone scan on showed 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 and left fourth proximal phalanx. superficial swab grew inna only - s/p right pleural effusion s/p thoracentesis with .9L removed on 12/16/2016 - severe , EF 40-45% per TTE 12/17/16 - DM - Hgb A1c 8.7% - HTN associated with DM Tracheostomy site bleeding Plan: Plan for HD today with ultrafiltration s/p Tracheostomy, on ventilator, pt will need HD palcement at a unit where they can do a HD for pt with tracheostomy and PEG tube placemen t pt has severe , very labile BP sometimes with HD will continue to follow up for HD need Consultation Date/Type/Reason Admit Date/Time Dec 02, 2016 at 21:01 Initial Consult Date Type of Consultation: NEPHROLOGY Referring Provider: VIET PARKER MD 24 HR Interval Summary Free Text/Dictation getting HD now, BP stable Exam/Review of Systems Vital Signs Vitals Vital Signs Date Time Temp Pulse Resp B/P Pulse Ox O2 Delivery O2 Flow Rate FiO2 01/31/17 16:00 78 01/31/17 15:31 16 97 30 01/31/17 15:00 114/42 Mechanical Ventilator Trach Collar 01/31/17 12:00 98.3 Intake and Output 01/30/17 01/30/17 01/31/17 15:00 23:00 07:00 Intake Total 290 ml 90 ml 750 ml Output Total 200 ml 200 ml 625 ml Balance 90 ml -110 ml 125 ml Results Result Diagram: 01/31/17 1540 01/31/17 0534 Results 24 hrs Laboratory Tests Test 01/30/17 20:32 01/31/17 00:39 01/31/17 05:11 01/31/17 05:32 Bedside Glucose 165 136 95 Lab Scanned Report BLOOD TRANSFUSION Test 01/31/17 05:34 01/31/17 09:31 01/31/17 11:02 01/31/17 12:49 White Blood Count 9.8 Red Blood Count 3.11 L Hemoglobin 9.3 L Hematocrit 29.0 L Mean Corpuscular Volume 93.2 Mean Corpuscular Hemoglobin 29.9 Mean Corpuscular Hemoglobin Concent 32.1 Red Cell Distribution Width 15.0 H Platelet Count 194 Mean Platelet Volume 10.3 Neutrophils % 72.8 Lymphocytes % 18.6 Monocytes % 7.3 Eosinophils % 0.5 Basophils % 0.2 Nucleated Red Blood Cells % 0.0 Neutrophils # 7.1 Lymphocytes # 1.8 Monocytes # 0.7 Eosinophils # 0.1 Basophils # 0.0 Nucleated Red Blood Cells # 0.0 Sodium Level 148 H Potassium Level 4.5 Chloride Level 105 Carbon Dioxide Level 30 Anion Gap 18 H Blood Urea Nitrogen 65 H Creatinine 1.86 H Glucose Level 85 Calcium Level 9.0 Total Bilirubin 0.9 Direct Bilirubin 0.00 Indirect Bilirubin 0.9 Aspartate Amino Transf (AST/SGOT) 38 Alanine Aminotransferase (ALT/SGPT) 26 Alkaline Phosphatase 89 Total Protein 7.8 Albumin 4.0 Globulin 3.80 H Albumin/Globulin Ratio 1.05 Bedside Glucose 108 146 Prothrombin Time 16.4 H Prothrombin Time Ratio 1.3 INR International Normalized Ratio 1.31 Activated Partial Thromboplast Time 33.7 Test 01/31/17 15:40 Hemoglobin 7.8 L Hematocrit 23.4 L Medications Medications Current Medications Ondansetron HCl (Zofran Inj) 4 mg Q6H PRN IV NAUSEA AND/OR VOMITING Last administered on 12/13/16 01:13; Admin Dose 4 MG; Start 12/02/16 at 22:30 Miscellaneous Information 1 ea NOTE XX ; Start 12/02/16 at 23:00 Glucose (Glutose) 15 gm Q15M PRN PO DECREASED GLUCOSE; Start 4/20/17 at 23:00 Glucose (Glutose) 22.5 gm Q15M PRN PO DECREASED GLUCOSE; Start 12/02/16 at 23: 00 Dextrose (D50w Syringe) 25 ml Q15M PRN IV DECREASED GLUCOSE Last administered on 01/26/17 05:21; Admin Dose 25 ML; Start 12/02/16 at 23:00 Dextrose (D50w Syringe) 50 ml Q15M PRN IV DECREASED GLUCOSE Last administered on 01/23/17 04:58; Admin Dose 50 ML; Start 12/02/16 at 23:00 Glucagon (Glucagen) 1 mg Q15M PRN IM DECREASED GLUCOSE; Start 12/02/16 at 23:00 Glucose (Glutose) 15 gm Q15M PRN BUCCAL DECREASED GLUCOSE; Start 12/02/16 at 23 :00 Gabapentin (Neurontin) 800 mg TID PO Last administered on 12/08/16 20:33; Admin Dose 800 MG; Start 12/03/16 at 09:00; Status Future Hold Benazepril HCl (Lotensin) 10 mg DAILY PO Last administered on 12/07/16 08:26; Admin Dose 10 MG; Start 12/04/16 at 09:00; Status Future Hold Acetaminophen (Tylenol Supp) 650 mg Q6H PRN [place] ELEVATED TEMPERATURE Last administered on 01/13/17 20:32; Admin Dose 650 MG; Start 12/09/16 at 17:00 Hydralazine HCl (Apresoline) 10 mg Q6H PRN IV SBP>150mm hg Last administered on 12/19/16 08:50; Admin Dose 10 MG; Start 12/11/16 at 10:30 Morphine Sulfate (morphine) 2 mg Q2H PRN IV PAIN LEVEL 4-7; Start 12/13/16 at 10 :00 Collagenase (Santyl) 1 applic DAILY TOP Last administered on 01/31/17 09:35; Admin Dose 1 APPLIC; Start 01/04/17 at 09:00 Metoprolol Tartrate (Lopressor) 5 mg Q4 PRN IV FOR H.R>110; Start 01/12/17 at 17:30 Acetaminophen (Tylenol Liquid) 650 mg Q6H PRN NGT PAIN AND [place] ELEVATED TEMP Last administered on 01/28/17 06:13; Admin Dose 650 MG; Start 01/13/17 at 23:30 Apixaban (Eliquis) 2.5 mg BID NGT Last administered on 01/30/17 08:18; Admin Dose 2.5 MG; Start 01/13/17 at 21:00; Status Future Hold Acetaminophen/ Hydrocodone Bitart ([place] (5/325)) 1 tab Q6H PRN NGT PAIN LEVEL 4-7; Start 01/13/17 at 23:30 Levetiracetam (Keppra Liquid) 1,000 mg DAILY NGT Last administered on 09:34; Admin Dose 1,000 MG; Start 01/14/17 at 09:00 Meclizine HCl (Antivert) 25 mg TID PRN NGT dizziness; Start 01/13/17 at 20:00 Zolpidem Tartrate (Ambien) 5 mg HS PRN NGT INSOMNIA; Start 01/13/17 at 20:00 Aspirin (Aspirin) 81 mg DAILY NGT Last administered on 01/30/17 08:18; Admin Dose 81 MG; Start 01/14/17 at 09:00; Status Future Hold Docusate Sodium (Colace Liquid Cup) 100 mg BID NGT Last administered on 09:34; Admin Dose 100 MG; Start 01/13/17 at 21:00 Pantoprazole (Protonix Iv) 40 mg DAILY@06 IV Last administered on 01/31/17 05: 36; Admin Dose 40 MG; Start 01/14/17 at 06:00 Amiodarone HCl (Cordarone) 200 mg Q8 NGT Last administered on 01/30/17 13:12; Admin Dose 200 MG; Start 01/17/17 at 14:00 Metoprolol Tartrate (Lopressor) 12.5 mg BID NGT Last administered on 01/31/17 09:34; Admin Dose 12.5 MG; Start 01/24/17 at 21:00 Insulin Aspart (Novolog Insulin Pen) NOVOLOG *MODERATE* ALGORI... Q4 SC Last administered on 01/30/17 20:35; Admin Dose 2 UNIT; Start 01/25/17 at 13:00 Insulin Glargine (Lantus) 30 unit DAILY@20 SC Last administered on 6/18/17at 20 :35; Admin Dose 30 UNIT; Start 01/26/17 at 20:00 Nystatin (Nystatin Susp) 5 ml Q6 PO Last administered on 01/31/17 12:54; Admin Dose 5 ML; Start 01/31/17 at 12:00 TASHIA MCGARRY MD Jan 31, 2017 17:41
[2017-01-31] MEDS ORDERED: NORepinephrine 8MG/250 ML (PMX 250 ML IV SCH (18:00)
[2017-01-31] MEDS ORDERED: DESMOPRESSIN 20 MCG in SOD CHLORIDE 0.9% 50 ML IVPB ONE (20:00)
[2017-01-31] MEDS: INSULIN GLARGINE [LANtus] 3 ML PEN SC SCH (21:39)
[2017-02-01] VITALS (36 sets, daily range): BP systolic 96–127; BP diastolic 50–60; PULSE 64–79; RESP 0–23
[2017-02-01 00:25] LABS: HEMATOCRIT 24.5 % (42.0-52.0)
[2017-02-01] MEDS: NYSTATIN SUSP 5 ML CUP PO SCH ×4 (00:28→18:02)
[2017-02-01] MEDS: ALBUTEROL 18 GM INHALER INH SCH ×4 (02:30→20:10)
[2017-02-01] MEDS: INSULIN ASPART [NOVOLOG] 3 ML PEN SC SCH ×6 (03:20→21:29)
[2017-02-01] MEDS: AMIODARONE 200 MG TAB NGT SCH ×3 (04:49→22:28)
[2017-02-01] MEDS: PANTOPRAZOLE 40 MG INJ IV SCH (04:50)
[2017-02-01 06:29] LABS: ADD SCAN DIFF NO
[2017-02-01 06:45] LABS: BASOPHILS % 0.1 % (0.0-2.0); EOSINOPHILS % 0.2 % (0.0-7.0); HEMATOCRIT 25.9 % (42.0-52.0); HEMOGLOBIN 8.3 g/dl (14.0-18.0); LYMPHOCYTES # 1.3 10^3/ul (0.8-2.9); LYMPHOCYTES % 9.1 % (15.0-51.0); MEAN CORPUSCULAR HEMOGLOBIN 28.7 pg (29.0-33.0); MEAN CORPUSCULAR VOLUME 89.6 fl (82.0-101.0); MEAN PLATELET VOLUME 10.5 fl (7.4-10.4); MONOCYTE # 0.9 10^3/ul (0.3-0.9); MONOCYTES % 6.6 % (0.0-11.0); NEUTROPHIL # 11.6 10^3/ul (1.6-7.5); NEUTROPHILS % 83.2 % (39.0-77.0); PLATELET COUNT 183 10^3/UL (140-415); RED BLOOD COUNT 2.89 10^6/ul (4.70-6.10); RED CELL DISTRIBUTION WIDTH 16.5 % (11.5-14.5); WHITE BLOOD COUNT 13.9 10^3/ul (4.8-10.8)
[2017-02-01 07:19] LABS: CALCIUM 8.7 mg/dl (8.4-10.2); CREATININE 1.56 mg/dl (0.61-1.24); POTASSIUM 4.5 mmol/L (3.5-5.1)
--- NOTE | 2017-02-01 09:23 | CONS ---
Date/Time of Note Date/Time of Note DATE: 02/01/17 TIME: 09:19 Assessment/Plan Assessment/Plan Chief Complaint/Hosp Course - recurrent cardiopulmonary arrest on 12/09/2016 and on 01/08/2017 - sepsis due to possible tracheobronchitis/pneumonia, resolving - possible tracheobronchitis/pneumonia due to pseudomonas, completed cefepime for this - leukocytosis - thrush - funguria - bleeding from trach site - s/p recurrent sepsis - 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 Blood cultures from HD catheter on 12/13/2016 are negative to date. 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 MRI on 12/06/2016 and bone scan on showed 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 and left fourth proximal phalanx. superficial swab grew inna only. At present, no e/o persistent infection - recurrent pleural effusion - s/p right pleural effusion s/p thoracentesis with .9L removed on 12/16/2016; ( Note: there is no pleural fluid cx since orders were placed after Right thoracentesis, and Left thoracentesis was not performed on 12/17/16 d/t insufficient fluid) - ARANZA on CKD that progressed to ESRD and started on HD from 12/09/2016 - oliguria - improved - A fib -> PAF - small nonreversible perfusion abnormality in the inferoapical and inferior carver; EF 36% per Lexiscan 12/24/2016 - severe , EF 40-45% per TTE 12/17/16 - DM - Hgb A1c 8.7% - HTN associated with DM - acute encephalopathy with anoxic brain injury - unstageable decubitus ulcer of coccyx, no evidence of infection - urinary retention NOTE: Pt completed 6 weeks (12/03/2016-01/15/2017) of antibiotics to treat 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 and left fourth proximal phalanx ; s/p pip/tazo 12/03/16-01/08/17; linezolid 01/08/17-01/20/17; caspofungin 01/12/17-01/21/17 recommendations: - I recommend and have ordered: urine, resp, blood cultures; blood cultures from HD catheter on 02/02/2017; CXR; neck CT - continue nystatin for thrush management d/w Pt's RN, RT the critical care time I took to care for this Pt today was from 0810 to 0850 Problems: Consultation Date/Type/Reason Admit Date/Time Dec 02, 2016 at 21:01 Initial Consult Date 12/03/16 Type of Consultation: ID Referring Provider: VIET PARKER MD 24 HR Interval Summary Subjective hx not possible: pt non-verbal, pt critical, pt critical status Exam/Review of Systems Vital Signs Vitals Vital Signs Date Time Temp Pulse Resp B/P Pulse Ox O2 Delivery O2 Flow Rate FiO2 02/01/17 09:15 73 18 96 30 02/01/17 08:00 106/53 Mechanical Ventilator Trach Collar 02/01/17 02:32 98.5 Intake and Output 01/31/17 01/31/17 02/01/17 15:00 23:00 07:00 Intake Total 870 ml 720 ml 150 ml Output Total 2075 ml 225 ml 125 ml Balance -1205 ml 495 ml 25 ml Exam Constitutional: frail, non-verbal Psych: confusion Head: atraumatic, normocephalic Eyes: nl conjunctiva, nl lids ENMT: other (NGT, thrush) Neck: other (trach, bleeding from it, swollen in general) Respiratory: crackles/rales Cardiovascular: nl pulses, regular rate and rhythm Gastrointestinal: non-tender, soft Musculoskeletal: nl extremities to inspection Extremities: No edema Neurological: confused, lethargic Skin: other (unstageable ulcer on coccyx) Results Result Diagram: 02/01/17 0523 02/01/17 0523 Results 24 hrs Laboratory Tests Test 01/31/17 09:31 01/31/17 11:02 01/31/17 12:49 01/31/17 15:40 Bedside Glucose 108 146 Prothrombin Time 16.4 H Prothrombin Time Ratio 1.3 INR International Normalized Ratio 1.31 Activated Partial Thromboplast Time 33.7 Hemoglobin 7.8 L Hematocrit 23.4 L Test 01/31/17 17:51 01/31/17 21:35 01/31/17 23:23 02/01/17 00:00 Bedside Glucose 170 176 Activated Partial Thromboplast Time 31.5 Hemoglobin 8.0 L Hematocrit 24.5 L Test 02/01/17 03:16 02/01/17 04:45 02/01/17 05:23 Bedside Glucose 188 176 White Blood Count 13.9 #H Red Blood Count 2.89 L Hemoglobin 8.3 L Hematocrit 25.9 L Mean Corpuscular Volume 89.6 Mean Corpuscular Hemoglobin 28.7 L Mean Corpuscular Hemoglobin Concent 32.0 Red Cell Distribution Width 16.5 H Platelet Count 183 Mean Platelet Volume 10.5 H Neutrophils % 83.2 H Lymphocytes % 9.1 L Monocytes % 6.6 Eosinophils % 0.2 Basophils % 0.1 Nucleated Red Blood Cells % 0.0 Neutrophils # 11.6 H Lymphocytes # 1.3 Monocytes # 0.9 Eosinophils # 0.0 Basophils # 0.0 Nucleated Red Blood Cells # 0.0 Sodium Level 140 Potassium Level 4.5 Chloride Level 99 Carbon Dioxide Level 31 Anion Gap 15 Blood Urea Nitrogen 47 #H Creatinine 1.56 H Glucose Level 152 Calcium Level 8.7 Medications Medications Current Medications Ondansetron HCl (Zofran Inj) 4 mg Q6H PRN IV NAUSEA AND/OR VOMITING Last administered on 12/13/16 01:13; Admin Dose 4 MG; Start 12/02/16 at 22:30 Miscellaneous Information 1 ea NOTE XX ; Start 12/02/16 at 23:00 Glucose (Glutose) 15 gm Q15M PRN PO DECREASED GLUCOSE; Start 12/02/16 at 23:00 Glucose (Glutose) 22.5 gm Q15M PRN PO DECREASED GLUCOSE; Start 12/02/16 at 23: 00 Dextrose (D50w Syringe) 25 ml Q15M PRN IV DECREASED GLUCOSE Last administered on 01/26/17 05:21; Admin Dose 25 ML; Start 12/02/16 at 23:00 Dextrose (D50w Syringe) 50 ml Q15M PRN IV DECREASED GLUCOSE Last administered on 01/23/17 04:58; Admin Dose 50 ML; Start 12/02/16 at 23:00 Glucagon (Glucagen) 1 mg Q15M PRN IM DECREASED GLUCOSE; Start 12/02/16 at 23:00 Glucose (Glutose) 15 gm Q15M PRN BUCCAL DECREASED GLUCOSE; Start 12/02/16 at 23 :00 Gabapentin (Neurontin) 800 mg TID PO Last administered on 12/08/16 20:33; Admin Dose 800 MG; Start 12/03/16 at 09:00; Status Future Hold Benazepril HCl (Lotensin) 10 mg DAILY PO Last administered on 12/07/16 08:26; Admin Dose 10 MG; Start 12/04/16 at 09:00; Status Future Hold Acetaminophen (Tylenol Supp) 650 mg Q6H PRN [place] ELEVATED TEMPERATURE Last administered on 01/13/17 20:32; Admin Dose 650 MG; Start 12/09/16 at 17:00 Hydralazine HCl (Apresoline) 10 mg Q6H PRN IV SBP>150mm hg Last administered on 12/19/16 08:50; Admin Dose 10 MG; Start 12/11/16 at 10:30 Morphine Sulfate (morphine) 2 mg Q2H PRN IV PAIN LEVEL 4-7; Start 12/13/16 at 10 :00 Collagenase (Santyl) 1 applic DAILY TOP Last administered on 01/31/17 09:35; Admin Dose 1 APPLIC; Start 01/04/17 at 09:00 Metoprolol Tartrate (Lopressor) 5 mg Q4 PRN IV FOR H.R>110; Start 01/12/17 at 17:30 Acetaminophen (Tylenol Liquid) 650 mg Q6H PRN NGT PAIN AND OR ELEVATED TEMP Last administered on 01/28/17 06:13; Admin Dose 650 MG; Start 01/13/17 at 23:30 Apixaban (Eliquis) 2.5 mg BID NGT Last administered on 01/30/17 08:18; Admin Dose 2.5 MG; Start 01/13/17 at 21:00; Status Future Hold Acetaminophen/ Hydrocodone Bitart ([place] (5/325)) 1 tab Q6H PRN NGT PAIN LEVEL 4-7; Start 01/13/17 at 23:30 Levetiracetam (Keppra Liquid) 1,000 mg DAILY NGT Last administered on 09:34; Admin Dose 1,000 MG; Start 01/14/17 at 09:00 Meclizine HCl (Antivert) 25 mg TID PRN NGT dizziness; Start 01/13/17 at 20:00 Zolpidem Tartrate (Ambien) 5 mg HS PRN NGT INSOMNIA; Start 01/13/17 at 20:00 Aspirin (Aspirin) 81 mg DAILY NGT Last administered on 01/30/17 08:18; Admin Dose 81 MG; Start 01/14/17 at 09:00; Status Future Hold Docusate Sodium (Colace Liquid Cup) 100 mg BID NGT Last administered on 21:09; Admin Dose 100 MG; Start 01/13/17 at 21:00 Pantoprazole (Protonix Iv) 40 mg DAILY@06 IV Last administered on 02/01/17 04: 50; Admin Dose 40 MG; Start 01/14/17 at 06:00 Amiodarone HCl (Cordarone) 200 mg Q8 NGT Last administered on 01/30/17 13:12; Admin Dose 200 MG; Start 01/17/17 at 14:00 Metoprolol Tartrate (Lopressor) 12.5 mg BID NGT Last administered on 01/31/17 09:34; Admin Dose 12.5 MG; Start 01/24/17 at 21:00 Insulin Aspart (Novolog Insulin Pen) NOVOLOG *MODERATE* ALGORI... Q4 SC Last administered on 02/01/17 04:49; Admin Dose 2 UNIT; Start 01/25/17 at 13:00 Insulin Glargine (Lantus) 30 unit DAILY@20 SC Last administered on 01/31/17 21 :39; Admin Dose 30 UNIT; Start 01/26/17 at 20:00 Nystatin 5 ml 5 ml Q6 PO Last administered on 02/01/17 04:50; Admin Dose 5 ML ; Start 01/31/17 at 12:00 Norepinephrine/ Dextrose (Levophed/D5W) 500 ml @ 0 mls/hr TITRATE IV ; Start at 07:00 CHRISTY LOPEZ M.D. Feb 01, 2017 09:22
--- NOTE | 2017-02-01 09:32 | CONS ---
Date/Time of Note Date/Time of Note DATE: 02/01/17 TIME: 09:29 Assessment/Plan Assessment/Plan Additional Assessment/Plan Ventilator setting; AC of 16, tidal volume 500, PEEP of 5, 30% FiO2. Assessment recommendations; 1. Patient admitted for cellulitis then the renal failure was transferred to the medical floor with the patient developed flash pulmonary edema causing respiratory failure status post CPR with ensuing severe anoxic brain injury. 2. Chronic renal failure, on hemodialysis. 3. Tracheal bleeding. 4. Peripheral vascular disease. 5. Anemia. Continue current treatment. Transfuse 1 unit of fresh frozen plasma. Once the patient's bleeding diathesis is controlled he will be evaluated for G-tube placement. Overall prognosis remains very poor. Consultation Date/Type/Reason Admit Date/Time Dec 02, 2016 at 21:01 Initial Consult Date 12/03/16 Type of Consultation: Pulmonary/critical care Referring Provider: VIET PARKER MD 24 HR Interval Summary Free Text/Dictation Patient condition remains unchanged. Still having tracheal bleeding. Patient remains unresponsive due to anoxic brain injury. Remains ventilator dependent. General exam; elderly male, unresponsive, on ventilator via tracheostomy. Exam/Review of Systems Vital Signs Vitals Vital Signs Date Time Temp Pulse Resp B/P Pulse Ox O2 Delivery O2 Flow Rate FiO2 02/01/17 09:15 73 18 96 30 02/01/17 08:00 106/53 Mechanical Ventilator Trach Collar 02/01/17 02:32 98.5 Intake and Output 01/31/17 01/31/17 02/01/17 15:00 23:00 07:00 Intake Total 870 ml 720 ml 150 ml Output Total 2075 ml 225 ml 125 ml Balance -1205 ml 495 ml 25 ml Exam HEENT examined; supple neck, no JVD. No lymphadenopathy. Midline trachea. No thyromegaly. Tracheostomy placed with bleeding around insertion site. Patient is edentulous. Chest examination; diminished but clear vessel. S1-S2 audible, no murmurs. Regular rhythm. Abdomen examination; soft, nondistended. No organomegaly. Bowel sounds audible. Extremity exam; no peripheral edema. 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 Results Result Diagram: 02/01/17 0523 02/01/17 0523 Results 24 hrs Laboratory Tests Test 01/31/17 09:31 01/31/17 11:02 01/31/17 12:49 01/31/17 15:40 Bedside Glucose 108 146 Prothrombin Time 16.4 H Prothrombin Time Ratio 1.3 INR International Normalized Ratio 1.31 Activated Partial Thromboplast Time 33.7 Hemoglobin 7.8 L Hematocrit 23.4 L Test 01/31/17 17:51 01/31/17 21:35 01/31/17 23:23 02/01/17 00:00 Bedside Glucose 170 176 Activated Partial Thromboplast Time 31.5 Hemoglobin 8.0 L Hematocrit 24.5 L Test 02/01/17 03:16 02/01/17 04:45 02/01/17 05:23 Bedside Glucose 188 176 White Blood Count 13.9 #H Red Blood Count 2.89 L Hemoglobin 8.3 L Hematocrit 25.9 L Mean Corpuscular Volume 89.6 Mean Corpuscular Hemoglobin 28.7 L Mean Corpuscular Hemoglobin Concent 32.0 Red Cell Distribution Width 16.5 H Platelet Count 183 Mean Platelet Volume 10.5 H Neutrophils % 83.2 H Lymphocytes % 9.1 L Monocytes % 6.6 Eosinophils % 0.2 Basophils % 0.1 Nucleated Red Blood Cells % 0.0 Neutrophils # 11.6 H Lymphocytes # 1.3 Monocytes # 0.9 Eosinophils # 0.0 Basophils # 0.0 Nucleated Red Blood Cells # 0.0 Sodium Level 140 Potassium Level 4.5 Chloride Level 99 Carbon Dioxide Level 31 Anion Gap 15 Blood Urea Nitrogen 47 #H Creatinine 1.56 H Glucose Level 152 Calcium Level 8.7 Medications Medications Current Medications Ondansetron HCl (Zofran Inj) 4 mg Q6H PRN IV NAUSEA AND/OR VOMITING Last administered on 12/13/16 01:13; Admin Dose 4 MG; Start 12/02/16 at 22:30 Miscellaneous Information 1 ea NOTE XX ; Start 12/02/16 at 23:00 Glucose (Glutose) 15 gm Q15M PRN PO DECREASED GLUCOSE; Start 12/02/16 at 23:00 Glucose (Glutose) 22.5 gm Q15M PRN PO DECREASED GLUCOSE; Start 12/02/16 at 23: 00 Dextrose (D50w Syringe) 25 ml Q15M PRN IV DECREASED GLUCOSE Last administered on 01/26/17 05:21; Admin Dose 25 ML; Start 12/02/16 at 23:00 Dextrose (D50w Syringe) 50 ml Q15M PRN IV DECREASED GLUCOSE Last administered on 01/23/17 04:58; Admin Dose 50 ML; Start 12/02/16 at 23:00 Glucagon (Glucagen) 1 mg Q15M PRN IM DECREASED GLUCOSE; Start 12/02/16 at 23:00 Glucose (Glutose) 15 gm Q15M PRN BUCCAL DECREASED GLUCOSE; Start 12/02/16 at 23 :00 Gabapentin (Neurontin) 800 mg TID PO Last administered on 12/08/16 20:33; Admin Dose 800 MG; Start 12/03/16 at 09:00; Status Future Hold Benazepril HCl (Lotensin) 10 mg DAILY PO Last administered on 12/07/16 08:26; Admin Dose 10 MG; Start 12/04/16 at 09:00; Status Future Hold Acetaminophen (Tylenol Supp) 650 mg Q6H PRN [place] ELEVATED TEMPERATURE Last administered on 01/13/17 20:32; Admin Dose 650 MG; Start 12/09/16 at 17:00 Hydralazine HCl (Apresoline) 10 mg Q6H PRN IV SBP>150mm hg Last administered on 12/19/16 08:50; Admin Dose 10 MG; Start 12/11/16 at 10:30 Morphine Sulfate (morphine) 2 mg Q2H PRN IV PAIN LEVEL 4-7; Start 12/13/16 at 10 :00 Collagenase (Santyl) 1 applic DAILY TOP Last administered on 01/31/17 09:35; Admin Dose 1 APPLIC; Start 01/04/17 at 09:00 Metoprolol Tartrate (Lopressor) 5 mg Q4 PRN IV FOR H.R>110; Start 01/12/17 at 17:30 Acetaminophen (Tylenol Liquid) 650 mg Q6H PRN NGT PAIN AND OR ELEVATED TEMP Last administered on 01/28/17 06:13; Admin Dose 650 MG; Start 01/13/17 at 23:30 Apixaban (Eliquis) 2.5 mg BID NGT Last administered on 01/30/17 08:18; Admin Dose 2.5 MG; Start 01/13/17 at 21:00; Status Future Hold Acetaminophen/ Hydrocodone Bitart ([place] (5/325)) 1 tab Q6H PRN NGT PAIN LEVEL 4-7; Start 01/13/17 at 23:30 Levetiracetam (Keppra Liquid) 1,000 mg DAILY NGT Last administered on 09:34; Admin Dose 1,000 MG; Start 01/14/17 at 09:00 Meclizine HCl (Antivert) 25 mg TID PRN NGT dizziness; Start 01/13/17 at 20:00 Zolpidem Tartrate (Ambien) 5 mg HS PRN NGT INSOMNIA; Start 01/13/17 at 20:00 Aspirin (Aspirin) 81 mg DAILY NGT Last administered on 01/30/17 08:18; Admin Dose 81 MG; Start 01/14/17 at 09:00; Status Future Hold Docusate Sodium (Colace Liquid Cup) 100 mg BID NGT Last administered on 21:09; Admin Dose 100 MG; Start 01/13/17 at 21:00 Pantoprazole (Protonix Iv) 40 mg DAILY@06 IV Last administered on 02/01/17 04: 50; Admin Dose 40 MG; Start 01/14/17 at 06:00 Amiodarone HCl (Cordarone) 200 mg Q8 NGT Last administered on 01/30/17 13:12; Admin Dose 200 MG; Start 01/17/17 at 14:00 Metoprolol Tartrate (Lopressor) 12.5 mg BID NGT Last administered on 01/31/17 09:34; Admin Dose 12.5 MG; Start 01/24/17 at 21:00 Insulin Aspart (Novolog Insulin Pen) NOVOLOG *MODERATE* ALGORI... Q4 SC Last administered on 02/01/17 04:49; Admin Dose 2 UNIT; Start 01/25/17 at 13:00 Insulin Glargine (Lantus) 30 unit DAILY@20 SC Last administered on 01/31/17 21 :39; Admin Dose 30 UNIT; Start 01/26/17 at 20:00 Nystatin 5 ml 5 ml Q6 PO Last administered on 02/01/17 04:50; Admin Dose 5 ML ; Start 01/31/17 at 12:00 Norepinephrine/ Dextrose (Levophed/D5W) 500 ml @ 0 mls/hr TITRATE IV ; Start at 07:00 IKE MULLER 20, 2017 09:32
[2017-02-01] MEDS: LEVETIRACETAM (100 MG/ML) 5ML CUP NGT SCH (09:56)
[2017-02-01] MEDS: DOCUSATE SODIUM 10 MG/ML (10ML CUP) NGT SCH ×2 (09:57→20:27)
[2017-02-01] MEDS: METOPROLOL 25 MG TAB NGT SCH ×2 (09:57→20:27)
[2017-02-01] MEDS: COLLAGENASE 30 GM TUBE TOP SCH (09:59)
--- NOTE | 2017-02-01 10:17 | CONS ---
Date/Time of Note Date/Time of Note DATE: 02/01/17 TIME: 10:14 Assessment/Plan Assessment/Plan Additional Assessment/Plan 1. Atrial fibrillation-Having episodes of PAF with reasonable rate control - well Rx now. 2. Hypotension-borderline and labile - stable 3. Abnormal electrocardiogram with inferolateral T-wave inversions. 4. Respiratory failure-s/p trach placement - CT scan now 5. Nonhealing toe ulceration-vascular following - skin care in place 6. Peripheral arterial disease by arterial ultrasound of the lower extremities this admission. 7. Diabetes mellitus - keep euglycemic. 8. Fevers- on anti-bx. 9. Positive troponin-downtrended 10.Bradycardia-improved/stable 11.-severe by echo 12.Cardiomyopathy-EF 40-45% by echo/36% by stress with no ischemia but positive scar. EF <30% by echo post arrest 14.Encephalopathy-anoxic 15. s/p cardiopulmonary arrest 01/08 Consultation Date/Type/Reason Admit Date/Time Dec 02, 2016 at 21:01 Initial Consult Date 12/03/16 Type of Consultation: Pulmonary/critical care Referring Provider: VIET PARKER MD 24 HR Interval Summary Free Text/Dictation NO acute events - chronically ill - going to CT. ROS: No fever, no chills, no nausea, no vomiting, no diarrhea/constipation No recent weight changes No chest pain, no PND, no orthopnea No dizziness, blurred vision No thirst, no heat or cold intolerance (per nurse) Exam/Review of Systems Vital Signs Vitals Vital Signs Date Time Temp Pulse Resp B/P Pulse Ox O2 Delivery O2 Flow Rate FiO2 02/01/17 09:15 73 18 96 30 02/01/17 08:00 106/53 Mechanical Ventilator Trach Collar 02/01/17 02:32 98.5 Intake and Output 01/31/17 01/31/17 02/01/17 15:00 23:00 07:00 Intake Total 870 ml 720 ml 150 ml Output Total 2075 ml 225 ml 125 ml Balance -1205 ml 495 ml 25 ml Exam General: WN/WD/NAD, AOx 0 HEENT: Unicetric/atraumatic/EOMI (does not follow commands) NECK: mariel Lymph: no lymphadenopathy HEART: regular with no S3, II/ systolic murmur at apex, 2/6 syst at base LUNGS: Coarse sounds ABD: soft, NT, ND, +BS : Intact Neuro: non focal SKIN: chronic changes EXT: trace edema Results Result Diagram: 02/01/17 0502/01/17 0523 Results 24 hrs Laboratory Tests Test 01/31/17 11:02 01/31/17 12:49 01/31/17 15:40 01/31/17 17:51 Prothrombin Time 16.4 H Prothrombin Time Ratio 1.3 INR International Normalized Ratio 1.31 Activated Partial Thromboplast Time 33.7 Bedside Glucose 146 170 Hemoglobin 7.8 L Hematocrit 23.4 L Test 01/31/17 21:35 01/31/17 23:23 02/01/17 00:00 02/01/17 03:16 Bedside Glucose 176 188 Activated Partial Thromboplast Time 31.5 Hemoglobin 8.0 L Hematocrit 24.5 L Test 02/01/17 04:45 02/01/17 05:23 Bedside Glucose 176 White Blood Count 13.9 #H Red Blood Count 2.89 L Hemoglobin 8.3 L Hematocrit 25.9 L Mean Corpuscular Volume 89.6 Mean Corpuscular Hemoglobin 28.7 L Mean Corpuscular Hemoglobin Concent 32.0 Red Cell Distribution Width 16.5 H Platelet Count 183 Mean Platelet Volume 10.5 H Neutrophils % 83.2 H Lymphocytes % 9.1 L Monocytes % 6.6 Eosinophils % 0.2 Basophils % 0.1 Nucleated Red Blood Cells % 0.0 Neutrophils # 11.6 H Lymphocytes # 1.3 Monocytes # 0.9 Eosinophils # 0.0 Basophils # 0.0 Nucleated Red Blood Cells # 0.0 Sodium Level 140 Potassium Level 4.5 Chloride Level 99 Carbon Dioxide Level 31 Anion Gap 15 Blood Urea Nitrogen 47 #H Creatinine 1.56 H Glucose Level 152 Calcium Level 8.7 Medications Medications Current Medications Ondansetron HCl (Zofran Inj) 4 mg Q6H PRN IV NAUSEA AND/OR VOMITING Last administered on 12/13/16t 01:13; Admin Dose 4 MG; Start 12/02/16 at 22:30 Miscellaneous Information 1 ea NOTE XX ; Start 12/02/16 at 23:00 Glucose (Glutose) 15 gm Q15M PRN PO DECREASED GLUCOSE; Start 12/02/16 at 23:00 Glucose (Glutose) 22.5 gm Q15M PRN PO DECREASED GLUCOSE; Start 12/02/16 at 23: 00 Dextrose (D50w Syringe) 25 ml Q15M PRN IV DECREASED GLUCOSE Last administered on 01/26/17 05:21; Admin Dose 25 ML; Start 12/02/16 at 23:00 Dextrose (D50w Syringe) 50 ml Q15M PRN IV DECREASED GLUCOSE Last administered on 01/23/17 04:58; Admin Dose 50 ML; Start 12/02/16 at 23:00 Glucagon (Glucagen) 1 mg Q15M PRN IM DECREASED GLUCOSE; Start 12/02/16 at 23:00 Glucose (Glutose) 15 gm Q15M PRN BUCCAL DECREASED GLUCOSE; Start 12/02/16 at 23 :00 Gabapentin (Neurontin) 800 mg TID PO Last administered on 12/08/16 20:33; Admin Dose 800 MG; Start 12/03/16 at 09:00; Status Future Hold Benazepril HCl (Lotensin) 10 mg DAILY PO Last administered on 12/07/16 08:26; Admin Dose 10 MG; Start 12/04/16 at 09:00; Status Future Hold Acetaminophen (Tylenol Supp) 650 mg Q6H PRN [place] ELEVATED TEMPERATURE Last administered on 01/13/17 20:32; Admin Dose 650 MG; Start 12/09/16 at 17:00 Hydralazine HCl (Apresoline) 10 mg Q6H PRN IV SBP>150mm hg Last administered on 12/19/16 08:50; Admin Dose 10 MG; Start 12/11/16 at 10:30 Morphine Sulfate (morphine) 2 mg Q2H PRN IV PAIN LEVEL 4-7; Start 12/13/16 at 10 :00 Collagenase (Santyl) 1 applic DAILY TOP Last administered on 01/31/17 09:35; Admin Dose 1 APPLIC; Start 01/04/17 at 09:00 Metoprolol Tartrate (Lopressor) 5 mg Q4 PRN IV FOR H.R>110; Start 01/12/17 at 17:30 Acetaminophen (Tylenol Liquid) 650 mg Q6H PRN NGT PAIN AND OR ELEVATED TEMP Last administered on 01/28/17 06:13; Admin Dose 650 MG; Start 01/13/17 at 23:30 Apixaban (Eliquis) 2.5 mg BID NGT Last administered on 01/30/17 08:18; Admin Dose 2.5 MG; Start 01/13/17 at 21:00; Status Future Hold Acetaminophen/ Hydrocodone Bitart ([place] (5/325)) 1 tab Q6H PRN NGT PAIN LEVEL 4-7; Start 01/13/17 at 23:30 Levetiracetam (Keppra Liquid) 1,000 mg DAILY NGT Last administered on 09:56; Admin Dose 1,000 MG; Start 01/14/17 at 09:00 Meclizine HCl (Antivert) 25 mg TID PRN NGT dizziness; Start 01/13/17 at 20:00 Zolpidem Tartrate (Ambien) 5 mg HS PRN NGT INSOMNIA; Start 01/13/17 at 20:00 Aspirin (Aspirin) 81 mg DAILY NGT Last administered on 01/30/17 08:18; Admin Dose 81 MG; Start 01/14/17 at 09:00; Status Future Hold Docusate Sodium (Colace Liquid Cup) 100 mg BID NGT Last administered on 09:57; Admin Dose 100 MG; Start 01/13/17 at 21:00 Pantoprazole (Protonix Iv) 40 mg DAILY@06 IV Last administered on 02/01/17 04: 50; Admin Dose 40 MG; Start 01/14/17 at 06:00 Amiodarone HCl (Cordarone) 200 mg Q8 NGT Last administered on 01/30/17 13:12; Admin Dose 200 MG; Start 01/17/17 at 14:00 Metoprolol Tartrate (Lopressor) 12.5 mg BID NGT Last administered on 02/01/17 09:57; Admin Dose 12.5 MG; Start 01/24/17 at 21:00 Insulin Aspart (Novolog Insulin Pen) NOVOLOG *MODERATE* [place]I... Q4 SC Last administered on 02/01/17 04:49; Admin Dose 2 UNIT; Start 01/25/17 at 13:00 Insulin Glargine (Lantus) 30 unit DAILY@20 SC Last administered on 01/31/17 21 :39; Admin Dose 30 UNIT; Start 01/26/17 at 20:00 Nystatin 5 ml 5 ml Q6 PO Last administered on 6/20/17at 04:50; Admin Dose 5 ML ; Start 01/31/17 at 12:00 Norepinephrine/ Dextrose (Levophed/D5W) 500 ml @ 0 mls/hr TITRATE IV ; Start at 07:00 DAVE NICOLE MD Feb 01, 2017 10:17
--- NOTE | 2017-02-01 10:38 | RADRPT ---
PROCEDURE: XR Chest. CLINICAL INDICATION: Leukocytosis. TECHNIQUE: Chest x-ray, single view. COMPARISON: 01/17/2017. FINDINGS: The cardiomediastinal silhouette is normal. A tracheostomy tube is in place within the airway. An e nteric tube terminates within the stomach. Low lung volumes are observed. Mild patchy hazy opacifi cation throughout the right lung is observed and likely accentuated by low lung volumes. This is li florian partially due to atelectasis. Underlying airspace disease from infection or edema may also be present. A right-sided hemodialysis catheter is in place and terminates at the SVC/right atrial star ction. Osseous structures appear slightly demineralized. The visualized upper abdomen is unremarka ble. IMPRESSION: Hypoinflation with mild hazy patchy opacification throughout the right lung. This is partially accen tuated by low lung volumes suggesting scattered atelectasis. Underlying airspace disease from infec tion or edema may also be present. There is no evidence of dense pulmonary consolidation. RPTAT: HLST .Jonna Bruner MD, Date Time Electronically viewed and signed by .Jonna Bruner MD, on 02/01/2017 10:38 .T/
--- NOTE | 2017-02-01 11:05 | RADRPT ---
PROCEDURE: CT scan of the neck without contrast. CLINICAL INDICATION: Bleeding from the tracheostomy site. TECHNIQUE: CT scan of the neck was performed on the multi-slice scanner . Contiguous axial images were obtained throughout the neck with coronal and sagittal reformatted images. No IV contrast was administered. The exam CTDI = 9.79 and the DLP equals 323.74 mGy-cm. One or more of the following dose reduction techniques were used: Automated exposure control. Adjustment of the mA and/or kV according to patient size. Use of iterative reconstruction technique. COMPARISON: CT c-spine 11/24/2014 FINDINGS: Tracheostomy is in place. There is hyperdense material in the subglottic airway suggesting hemorrhag e/ debris just above the tracheostomy tube. There is midline position of bilateral vocal cords. The re is excretion in the right piriform sinus and in the supraglottic larynx. There is no fluid collec tion in the anterior neck at the level of the tracheostomy. NG tube is in place. The right IJ dialy sis catheter is partially visualized. There is debris / secretion in the trachea and the right main bronchus. The oropharynx, and hypopharynx are unremarkable. The mucosal space of the airway is clear. The ton sillar pillars are normal. The parotid glands, submandibular glands, and thyroid gland are all no rmal. Imaging obtained through the lung apices revealed no acute abnormality. Normal size lymph no makayla are seen within the typical jelly bearing stations of the neck bilaterally. No adenopathy is de tected. No mass or fluid collection or other abnormality is seen. The surrounding soft tissues and muscles are unremarkable as well. There is moderate disk height loss and uncovertebral spurring at C4-C5 through C6-C7. IMPRESSION: 1. Tracheostomy is in satisfactory position. 2. Hyperdense material is identified in subglottic space likely representing hemorrhage / debris. No evidence of fluid collection in the soft tissues of the anterior neck around the tracheostomy tub e. 3. Midline position of the vocal cords suggesting vocal cord paralysis versus phonation during the scan. 4. Small amount of debris in the trachea and right main bronchus. RPTAT: BB .Mitesh Aguilar MD, Date Time Electronically viewed and signed by .Mitesh Aguilar MD, MD on 02/01/2017 11:04 .O/
--- NOTE | 2017-02-01 13:49 | PN ---
Date/Time of Note Date/Time of Note DATE: 02/01/17 TIME: 13:41 Assessment/Plan VTE Prophylaxis VTE Prophylaxis Intervention: SCD's Lines/Catheters [facility] [place] Assessment/Plan Chief Complaint/Hosp Course Patient's continues to have oozing blood from the tracheostomy site, status post DDAVP yesterday currently undergoing FFP transfusion. With increased white blood cells today, pending cultures. ASSESSMENT AND PLAN: - Anemia of blood loss. Continue to monitor H&H, transfuse as needed. - Status post cardiopulmonary arrest on 12/09/2016 and 01/08/2017. Continue ventilatory support. - Anoxic encephalopathy. Continue Keppra. - Status post tracheostomy on 01/23/2017. - Dysphagia. The patient is pending G-tube placement. - End-stage renal disease. Continue hemodialysis per nephrology. - Paroxysmal atrial fibrillation. Eliquis is currently held due to bleeding. - Diabetes mellitus type 2. Continue Lantus and NovoLog with sliding scale coverage with Accu-Cheks q. 4 hours. - Diabetic foot ulcer. Continue current wound care. - Osteomyelitis of the distal phalanx of the great left toe. Completed treatment for antibiotics. Continue sequential compression device for deep venous thrombosis prophylaxis and Protonix for peptic ulcer disease prophylaxis. Further recommendations based on clinical course. Plan of care discussed with Dr. Heredia. Problems: Exam/Review of Systems Vital Signs Vitals Vital Signs Date Time Temp Pulse Resp B/P Pulse Ox O2 Delivery O2 Flow Rate FiO2 02/01/17 13:21 66 16 97 30 02/01/17 13:00 121/55 Mechanical Ventilator 02/01/17 11:00 97.6 Intake and Output 01/31/17 01/31/17 02/01/17 14:59 22:59 06:59 Intake Total 240 ml 1120 ml 380 ml Output Total 350 ml 1950 ml 150 ml Balance -110 ml -830 ml 230 ml Results Result Diagram: 02/01/17 0502/01/17 05 Results 24 hrs Laboratory Tests Test 01/31/17 15:40 01/31/17 17:51 01/31/17 21:35 01/31/17 23:23 Hemoglobin 7.8 L Hematocrit 23.4 L Bedside Glucose 170 176 Activated Partial Thromboplast Time 31.5 Test 02/01/17 00:00 02/01/17 03:16 02/01/17 04:45 02/01/17 05:23 Hemoglobin 8.0 L 8.3 L Hematocrit 24.5 L 25.9 L Bedside Glucose 188 176 White Blood Count 13.9 #H Red Blood Count 2.89 L Mean Corpuscular Volume 89.6 Mean Corpuscular Hemoglobin 28.7 L Mean Corpuscular Hemoglobin Concent 32.0 Red Cell Distribution Width 16.5 H Platelet Count 183 Mean Platelet Volume 10.5 H Neutrophils % 83.2 H Lymphocytes % 9.1 L Monocytes % 6.6 Eosinophils % 0.2 Basophils % 0.1 Nucleated Red Blood Cells % 0.0 Neutrophils # 11.6 H Lymphocytes # 1.3 Monocytes # 0.9 Eosinophils # 0.0 Basophils # 0.0 Nucleated Red Blood Cells # 0.0 Sodium Level 140 Potassium Level 4.5 Chloride Level 99 Carbon Dioxide Level 31 Anion Gap 15 Blood Urea Nitrogen 47 #H Creatinine 1.56 H Glucose Level 152 Calcium Level 8.7 Test 02/01/17 09:44 02/01/17 09:58 02/01/17 13:05 Lactic Acid Level 1.2 Bedside Glucose 154 190 Medications Medications Current Medications Ondansetron HCl (Zofran Inj) 4 mg Q6H PRN IV NAUSEA AND/OR VOMITING Last administered on 12/13/16 01:13; Admin Dose 4 MG; Start 12/02/16 at 22:30 Miscellaneous Information 1 ea NOTE XX ; Start 12/02/16 at 23:00 Glucose (Glutose) 15 gm Q15M PRN PO DECREASED GLUCOSE; Start 12/02/16 at 23:00 Glucose (Glutose) 22.5 gm Q15M PRN PO DECREASED GLUCOSE; Start 12/02/16 at 23: 00 Dextrose (D50w Syringe) 25 ml Q15M PRN IV DECREASED GLUCOSE Last administered on 01/26/17 05:21; Admin Dose 25 ML; Start 12/02/16 at 23:00 Dextrose (D50w Syringe) 50 ml Q15M PRN IV DECREASED GLUCOSE Last administered on 01/23/17 04:58; Admin Dose 50 ML; Start 12/02/16 at 23:00 Glucagon (Glucagen) 1 mg Q15M PRN IM DECREASED GLUCOSE; Start 12/02/16 at 23:00 Glucose (Glutose) 15 gm Q15M PRN BUCCAL DECREASED GLUCOSE; Start 12/02/16 at 23 :00 Gabapentin (Neurontin) 800 mg TID PO Last administered on 12/08/16 20:33; Admin Dose 800 MG; Start 12/03/16 at 09:00; Status Future Hold Benazepril HCl (Lotensin) 10 mg DAILY PO Last administered on 12/07/16 08:26; Admin Dose 10 MG; Start 12/04/16 at 09:00; Status Future Hold Acetaminophen (Tylenol Supp) 650 mg Q6H PRN [place] ELEVATED TEMPERATURE Last administered on 01/13/17 20:32; Admin Dose 650 MG; Start 12/09/16 at 17:00 Hydralazine HCl (Apresoline) 10 mg Q6H PRN IV SBP>150mm hg Last administered on 12/19/16 08:50; Admin Dose 10 MG; Start 12/11/16 at 10:30 Morphine Sulfate (morphine) 2 mg Q2H PRN IV PAIN LEVEL 4-7; Start 12/13/16 at 10 :00 Collagenase (Santyl) 1 applic DAILY TOP Last administered on 02/01/17 09:59; Admin Dose 1 APPLIC; Start 01/04/17 at 09:00 Metoprolol Tartrate (Lopressor) 5 mg Q4 PRN IV FOR H.R>110; Start 01/12/17 at 17:30 Acetaminophen (Tylenol Liquid) 650 mg Q6H PRN NGT PAIN AND OR ELEVATED TEMP Last administered on 01/28/17 06:13; Admin Dose 650 MG; Start 01/13/17 at 23:30 Apixaban (Eliquis) 2.5 mg BID NGT Last administered on 01/30/17 08:18; Admin Dose 2.5 MG; Start 01/13/17 at 21:00; Status Future Hold Acetaminophen/ Hydrocodone Bitart ([place] (5/325)) 1 tab Q6H PRN NGT PAIN LEVEL 4-7; Start 01/13/17 at 23:30 Levetiracetam (Keppra Liquid) 1,000 mg DAILY NGT Last administered on 09:56; Admin Dose 1,000 MG; Start 01/14/17 at 09:00 Meclizine HCl (Antivert) 25 mg TID PRN NGT dizziness; Start 01/13/17 at 20:00 Zolpidem Tartrate (Ambien) 5 mg HS PRN NGT INSOMNIA; Start 01/13/17 at 20:00 Aspirin (Aspirin) 81 mg DAILY NGT Last administered on 01/30/17 08:18; Admin Dose 81 MG; Start 01/14/17 at 09:00; Status Future Hold Docusate Sodium (Colace Liquid Cup) 100 mg BID NGT Last administered on 09:57; Admin Dose 100 MG; Start 01/13/17 at 21:00 Pantoprazole (Protonix Iv) 40 mg DAILY@06 IV Last administered on 02/01/17 04: 50; Admin Dose 40 MG; Start 01/14/17 at 06:00 Amiodarone HCl (Cordarone) 200 mg Q8 NGT Last administered on 01/30/17 13:12; Admin Dose 200 MG; Start 01/17/17 at 14:00 Metoprolol Tartrate (Lopressor) 12.5 mg BID NGT Last administered on 02/01/17 09:57; Admin Dose 12.5 MG; Start 01/24/17 at 21:00 Insulin Aspart (Novolog Insulin Pen) NOVOLOG *MODERATE* ALGORI... Q4 SC Last administered on 02/01/17 13:15; Admin Dose 4 UNIT; Start 01/25/17 at 13:00 Insulin Glargine (Lantus) 30 unit DAILY@20 SC Last administered on 01/31/17 21 :39; Admin Dose 30 UNIT; Start 01/26/17 at 20:00 Nystatin 5 ml 5 ml Q6 PO Last administered on 02/01/17 13:04; Admin Dose 5 ML ; Start 01/31/17 at 12:00 Norepinephrine/ Dextrose (Levophed/D5W) 500 ml @ 0 mls/hr TITRATE IV ; Start at 07:00 KIMBERLY NOYOLA Feb 01, 2017 13:48
[2017-02-01] MEDS ORDERED: MAGNESIUM SULFATE 3 GM in SOD CHLORIDE 0.9% 100 ML IVPB ONE (14:30)
[2017-02-01] MEDS ORDERED: POTASSIUM CHLORIDE (SR) 20 MEQ TAB PO STA (14:30)
[2017-02-01 14:48] LABS: HEMATOCRIT 22.2 % (42.0-52.0); HEMOGLOBIN 7.5 g/dl (14.0-18.0)
[2017-02-01 18:23] LABS: ADD UMIC YES; UR BILIRUBIN (Dip) NEGATIVE (NEGATIVE); UR BLOOD (Dip) 1+ (NEGATIVE); UR CLARITY CLEAR (CLEAR); UR COLOR YELLOW (YELLOW); UR GLUCOSE (Dip) NEGATIVE (NEGATIVE); UR KETONES (Dip) NEGATIVE (NEGATIVE); UR LEUKOCYTE ESTERASE (Dip) TRACE (NEGATIVE); UR NITRITE (Dip) NEGATIVE (NEGATIVE); UR TOTAL PROTEIN (Dip) 2+ (NEGATIVE); UR UROBILINOGEN (Dip) 0.2 E.U./dL (0.1-1.0)
[2017-02-01 18:43] LABS: UR BACTERIA FEW /HPF (NONE SEEN); UR SQUAMOUS EPITHELIAL CELL RARE /HPF (FEW); URINE RBCS 0-2 /HPF (0)
--- NOTE | 2017-02-01 19:36 | CONS ---
Date/Time of Note Date/Time of Note DATE: 02/01/17 TIME: 19:34 Assessment/Plan Assessment/Plan Additional Assessment/Plan -S/p cardiopulmonary arrest on 12/09/2016 and on 01/08/2017 - 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 Blood cultures from HD catheter on 12/13/2016 are negative to date. 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 MRI on 12/06/2016 and bone scan on showed 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 and left fourth proximal phalanx. superficial swab grew inna only - s/p right pleural effusion s/p thoracentesis with .9L removed on 12/16/2016 - severe , EF 40-45% per TTE 12/17/16 - DM - Hgb A1c 8.7% - HTN associated with DM Tracheostomy site bleeding Plan: Plan for HD tomorrow s/p Tracheostomy, on ventilator, pt will need HD palcement at a unit where they can do a HD for pt with tracheostomy and PEG tube placemen t pt has severe , very labile BP sometimes with HD will continue to follow up for HD need Consultation Date/Type/Reason Admit Date/Time Dec 02, 2016 at 21:01 Initial Consult Date Type of Consultation: NEPHROLOGY Referring Provider: VIET PARKER MD 24 HR Interval Summary Free Text/Dictation Plan for HD tomorrow Exam/Review of Systems Vital Signs Vitals Vital Signs Date Time Temp Pulse Resp B/P Pulse Ox O2 Delivery O2 Flow Rate FiO2 02/01/17 18:15 69 0 110/52 100 02/01/17 18:00 Mechanical Ventilator 02/01/17 17:09 50 02/01/17 15:00 97.2 Intake and Output 6/19/17 6/19/17 6/20/17 15:00 23:00 07:00 Intake Total 870 ml 720 ml 230 ml Output Total 2075 ml 225 ml 175 ml Balance -1205 ml 495 ml 55 ml Exam Constitutional: frail, non-verbal Neck: other (trach, bleeding from it, swollen in general) Respiratory: crackles/rales Cardiovascular: nl pulses, regular rate and rhythm Gastrointestinal: non-tender, soft Musculoskeletal: nl extremities to inspection Extremities: No edema Neurological: confused, lethargic Skin: other (unstageable ulcer on coccyx) Results Result Diagram: 02/01/17 1440 02/01/17 0523 Results 24 hrs Laboratory Tests Test 01/31/17 21:35 01/31/17 23:23 02/01/17 00:00 02/01/17 03:16 Bedside Glucose 176 188 Activated Partial Thromboplast Time 31.5 Hemoglobin 8.0 L Hematocrit 24.5 L Test 02/01/17 04:45 02/01/17 05:23 02/01/17 09:33 02/01/17 09:44 Bedside Glucose 176 White Blood Count 13.9 #H Red Blood Count 2.89 L Hemoglobin 8.3 L Hematocrit 25.9 L Mean Corpuscular Volume 89.6 Mean Corpuscular Hemoglobin 28.7 L Mean Corpuscular Hemoglobin Concent 32.0 Red Cell Distribution Width 16.5 H Platelet Count 183 Mean Platelet Volume 10.5 H Neutrophils % 83.2 H Lymphocytes % 9.1 L Monocytes % 6.6 Eosinophils % 0.2 Basophils % 0.1 Nucleated Red Blood Cells % 0.0 Neutrophils # 11.6 H Lymphocytes # 1.3 Monocytes # 0.9 Eosinophils # 0.0 Basophils # 0.0 Nucleated Red Blood Cells # 0.0 Sodium Level 140 Potassium Level 4.5 Chloride Level 99 Carbon Dioxide Level 31 Anion Gap 15 Blood Urea Nitrogen 47 #H Creatinine 1.56 H Glucose Level 152 Calcium Level 8.7 Urine Color YELLOW Urine Clarity CLEAR Urine pH 5.5 Urine Specific [place] 1.020 Urine Ketones NEGATIVE Urine Nitrite NEGATIVE Urine Bilirubin NEGATIVE Urine Urobilinogen 0.2 E.U./dL Urine Leukocyte Esterase TRACE H Urine Microscopic RBC 0-2 Urine Microscopic WBC 5-10 Urine Squamous Epithelial Cells RARE Urine Bacteria FEW Urine Yeast FEW Urine Hemoglobin 1+ H Urine Glucose NEGATIVE Urine Total Protein 2+ H Lactic Acid Level 1.2 Test 02/01/17 09:58 02/01/17 13:05 02/01/17 14:40 02/01/17 17:48 Bedside Glucose 154 190 220 Hemoglobin 7.5 L Hematocrit 22.2 L Medications Medications Current Medications Ondansetron HCl (Zofran Inj) 4 mg Q6H PRN IV NAUSEA AND/OR VOMITING Last administered on 12/13/16 01:13; Admin Dose 4 MG; Start 12/02/16 at 22:30 Miscellaneous Information 1 ea NOTE XX ; Start 12/02/16 at 23:00 Glucose (Glutose) 15 gm Q15M PRN PO DECREASED GLUCOSE; Start 12/02/16 at 23:00 Glucose (Glutose) 22.5 gm Q15M PRN PO DECREASED GLUCOSE; Start 12/02/16 at 23: 00 Dextrose (D50w Syringe) 25 ml Q15M PRN IV DECREASED GLUCOSE Last administered on 01/26/17 05:21; Admin Dose 25 ML; Start 12/02/16 at 23:00 Dextrose (D50w Syringe) 50 ml Q15M PRN IV DECREASED GLUCOSE Last administered on 01/23/17 04:58; Admin Dose 50 ML; Start 12/02/16 at 23:00 Glucagon (Glucagen) 1 mg Q15M PRN IM DECREASED GLUCOSE; Start 12/02/16 at 23:00 Glucose (Glutose) 15 gm Q15M PRN BUCCAL DECREASED GLUCOSE; Start 12/02/16 at 23 :00 Gabapentin (Neurontin) 800 mg TID PO Last administered on 12/08/16 20:33; Admin Dose 800 MG; Start 12/03/16 at 09:00; Status Future Hold Benazepril HCl (Lotensin) 10 mg DAILY PO Last administered on 12/07/16 08:26; Admin Dose 10 MG; Start 12/04/16 at 09:00; Status Future Hold Acetaminophen (Tylenol Supp) 650 mg Q6H PRN [place] ELEVATED TEMPERATURE Last administered on 01/13/17 20:32; Admin Dose 650 MG; Start 12/09/16 at 17:00 Hydralazine HCl (Apresoline) 10 mg Q6H PRN IV SBP>150mm hg Last administered on 12/19/16 08:50; Admin Dose 10 MG; Start 12/11/16 at 10:30 Morphine Sulfate (morphine) 2 mg Q2H PRN IV PAIN LEVEL 4-7; Start 12/13/16 at 10 :00 Collagenase (Santyl) 1 applic DAILY TOP Last administered on 02/01/17 09:59; Admin Dose 1 APPLIC; Start 01/04/17 at 09:00 Metoprolol Tartrate (Lopressor) 5 mg Q4 PRN IV FOR H.R>110; Start 01/12/17 at 17:30 Acetaminophen (Tylenol Liquid) 650 mg Q6H PRN NGT PAIN AND OR ELEVATED TEMP Last administered on 01/28/17 06:13; Admin Dose 650 MG; Start 01/13/17 at 23:30 Apixaban (Eliquis) 2.5 mg BID NGT Last administered on 01/30/17 08:18; Admin Dose 2.5 MG; Start 01/13/17 at 21:00; Status Future Hold Acetaminophen/ Hydrocodone Bitart ([place] (5/325)) 1 tab Q6H PRN NGT PAIN LEVEL 4-7; Start 01/13/17 at 23:30 Levetiracetam (Keppra Liquid) 1,000 mg DAILY NGT Last administered on 09:56; Admin Dose 1,000 MG; Start 01/14/17 at 09:00 Meclizine HCl (Antivert) 25 mg TID PRN NGT dizziness; Start 01/13/17 at 20:00 Zolpidem Tartrate (Ambien) 5 mg HS PRN NGT INSOMNIA; Start 01/13/17 at 20:00 Aspirin (Aspirin) 81 mg DAILY NGT Last administered on 01/30/17 08:18; Admin Dose 81 MG; Start 01/14/17 at 09:00; Status Future Hold Docusate Sodium (Colace Liquid Cup) 100 mg BID NGT Last administered on 09:57; Admin Dose 100 MG; Start 01/13/17 at 21:00 Pantoprazole (Protonix Iv) 40 mg DAILY@06 IV Last administered on 02/01/17 04: 50; Admin Dose 40 MG; Start 01/14/17 at 06:00 Amiodarone HCl (Cordarone) 200 mg Q8 NGT Last administered on 02/01/17 15:30; Admin Dose 200 MG; Start 01/17/17 at 14:00 Metoprolol Tartrate (Lopressor) 12.5 mg BID NGT Last administered on 02/01/17 09:57; Admin Dose 12.5 MG; Start 01/24/17 at 21:00 Insulin Aspart (Novolog Insulin Pen) NOVOLOG *MODERATE* ALGORI... Q4 SC Last administered on 02/01/17 18:02; Admin Dose 4 UNIT; Start 01/25/17 at 13:00 Insulin Glargine (Lantus) 30 unit DAILY@20 SC Last administered on 01/31/17 21 :39; Admin Dose 30 UNIT; Start 01/26/17 at 20:00 Nystatin 5 ml 5 ml Q6 PO Last administered on 02/01/17 18:02; Admin Dose 5 ML ; Start 01/31/17 at 12:00 Norepinephrine/ Dextrose (Levophed/D5W) 500 ml @ 0 mls/hr TITRATE IV ; Start at 07:00 TASHIA MCGARRY MD Feb 01, 2017 19:36
[2017-02-01] MEDS: INSULIN GLARGINE [LANtus] 3 ML PEN SC SCH (20:26)
[2017-02-02] VITALS (48 sets, daily range): BP systolic 88–132; BP diastolic 38–61; PULSE 71–89; RESP 0–39
[2017-02-02] MEDS: NYSTATIN SUSP 5 ML CUP PO SCH ×5 (00:03→23:32)
[2017-02-02 00:48] LABS: HEMATOCRIT 23.4 % (42.0-52.0); HEMOGLOBIN 7.8 g/dl (14.0-18.0)
[2017-02-02] MEDS: INSULIN ASPART [NOVOLOG] 3 ML PEN SC SCH ×6 (00:48→20:50)
[2017-02-02] MEDS: ALBUTEROL 18 GM INHALER INH SCH ×4 (01:17→20:56)
[2017-02-02] MEDS: PANTOPRAZOLE 40 MG INJ IV SCH (06:09)
[2017-02-02] MEDS: ALBUMIN HUMAN 25% 100 ML IV PRN (07:11)
[2017-02-02 07:46] LABS: ADD SCAN DIFF NO
[2017-02-02 07:50] LABS: BASOPHILS % 0.1 % (0.0-2.0); EOSINOPHILS # 0.1 10^3/ul (0.0-0.5); EOSINOPHILS % 0.3 % (0.0-7.0); HEMATOCRIT 27.4 % (42.0-52.0); HEMOGLOBIN 9.2 g/dl (14.0-18.0); LYMPHOCYTES # 1.2 10^3/ul (0.8-2.9); LYMPHOCYTES % 7.9 % (15.0-51.0); MEAN CORPUSCULAR HEMOGLOBIN 29.6 pg (29.0-33.0); MEAN CORPUSCULAR HGB CONC 33.6 g/dl (32.0-37.0); MEAN CORPUSCULAR VOLUME 88.1 fl (82.0-101.0); MEAN PLATELET VOLUME 10.7 fl (7.4-10.4); MONOCYTE # 1.1 10^3/ul (0.3-0.9); MONOCYTES % 7.1 % (0.0-11.0); NEUTROPHIL # 12.4 10^3/ul (1.6-7.5); NEUTROPHILS % 84.1 % (39.0-77.0); PLATELET COUNT 195 10^3/UL (140-415); RED BLOOD COUNT 3.11 10^6/ul (4.70-6.10); RED CELL DISTRIBUTION WIDTH 15.4 % (11.5-14.5); WHITE BLOOD COUNT 14.8 10^3/ul (4.8-10.8)
[2017-02-02] MEDS: METOPROLOL 25 MG TAB NGT SCH ×2 (09:00→20:40)
[2017-02-02] MEDS: DOCUSATE SODIUM 10 MG/ML (10ML CUP) NGT SCH ×2 (09:22→20:40)
[2017-02-02] MEDS: LEVETIRACETAM (100 MG/ML) 5ML CUP NGT SCH (09:23)
[2017-02-02] MEDS: AMIODARONE 200 MG TAB NGT SCH ×3 (09:25→21:19)
[2017-02-02] MEDS: COLLAGENASE 30 GM TUBE TOP SCH (09:26)
--- NOTE | 2017-02-02 09:29 | CONS ---
Date/Time of Note Date/Time of Note DATE: 02/02/17 TIME: 09:26 Assessment/Plan Assessment/Plan Chief Complaint/Hosp Course - possible recurrent sepsis - recurrent cardiopulmonary arrest on 12/09/2016 and on 01/08/2017 - s/p sepsis due to possible tracheobronchitis/pneumonia - s/p tracheobronchitis/pneumonia due to pseudomonas, completed cefepime for this - thrush, refractory to nystatin - funguria - bleeding from trach site - s/p recurrent sepsis - 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 Blood cultures from HD catheter on 12/13/2016 are negative to date. 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 MRI on 12/06/2016 and bone scan on showed 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 and left fourth proximal phalanx. superficial swab grew inna only. At present, no e/o persistent infection - recurrent pleural effusion - s/p right pleural effusion s/p thoracentesis with .9L removed on 12/16/2016; ( Note: there is no pleural fluid cx since orders were placed after Right thoracentesis, and Left thoracentesis was not performed on 12/17/16 d/t insufficient fluid) - ARANZA on CKD that progressed to ESRD and started on HD from 12/09/2016 - oliguria - improved - A fib -> PAF - small nonreversible perfusion abnormality in the inferoapical and inferior carver; EF 36% per Lexiscan 12/24/2016 - severe , EF 40-45% per TTE 12/17/16 - DM - Hgb A1c 8.7% - HTN associated with DM - acute encephalopathy with anoxic brain injury - unstageable decubitus ulcer of coccyx, no evidence of infection - urinary retention NOTE: Pt completed 6 weeks (12/03/2016-01/15/2017) of antibiotics to treat 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 and left fourth proximal phalanx ; s/p pip/tazo 12/03/16-01/08/17; linezolid 01/08/17-01/20/17; caspofungin 01/12/17-01/21/17 recommendations: - pending results: urine, resp, blood cultures from 02/01/2017, blood cultures from HD catheter on 02/02/2017 - add IV renally dosed fluconazole for refractory thrush - continue nystatin for thrush management d/w Pt's RN the critical care time I took to care for this Pt today was from 0820 to 0900 Problems: Consultation Date/Type/Reason Admit Date/Time Dec 02, 2016 at 21:01 Initial Consult Date 12/03/16 Type of Consultation: ID Referring Provider: VIET PARKER MD 24 HR Interval Summary Subjective hx not possible: pt non-verbal, pt critical, pt critical status Exam/Review of Systems Vital Signs Vitals Vital Signs Date Time Temp Pulse Resp B/P Pulse Ox O2 Delivery O2 Flow Rate FiO2 02/02/17 07:33 81 19 100 50 02/02/17 06:00 108/42 Mechanical Ventilator 02/02/17 04:00 99.2 Intake and Output 02/01/17 02/01/17 02/02/17 15:00 23:00 07:00 Intake Total 595 ml 260 ml 340 ml Output Total 200 ml 150 ml 200 ml Balance 395 ml 110 ml 140 ml Exam Constitutional: frail, non-verbal Psych: confusion Head: atraumatic, normocephalic Eyes: nl conjunctiva, nl lids ENMT: nl external ears & nose, other (thrush) Neck: other (trach with coagluated blood) Respiratory: crackles/rales Cardiovascular: nl pulses, regular rate and rhythm Gastrointestinal: non-tender, soft Musculoskeletal: nl extremities to inspection Extremities: No edema Neurological: lethargic Skin: rash or lesions (decubitus ulcer of sacrum) Results Result Diagram: 02/02/17 0630 02/01/17 0523 Results 24 hrs Laboratory Tests Test 02/01/17 09:33 02/01/17 09:44 02/01/17 09:58 02/01/17 13:05 Urine Color YELLOW Urine Clarity CLEAR Urine pH 5.5 Urine Specific [place] 1.020 Urine Ketones NEGATIVE Urine Nitrite NEGATIVE Urine Bilirubin NEGATIVE Urine Urobilinogen 0.2 E.U./dL Urine Leukocyte Esterase TRACE H Urine Microscopic RBC 0-2 Urine Microscopic WBC 5-10 Urine Squamous Epithelial Cells RARE Urine Bacteria FEW Urine Yeast FEW Urine Hemoglobin 1+ H Urine Glucose NEGATIVE Urine Total Protein 2+ H Lactic Acid Level 1.2 Bedside Glucose 154 190 Test 02/01/17 14:40 02/01/17 17:48 02/01/17 20:23 02/01/17 21:27 Hemoglobin 7.5 L Hematocrit 22.2 L Bedside Glucose 220 202 206 Test 02/01/17 23:50 02/02/17 00:45 02/02/17 04:54 02/02/17 05:17 Hemoglobin 7.8 L Hematocrit 23.4 L Bedside Glucose 166 143 Lab Scanned Report BLOOD TRANSFUSION Test 02/02/17 06:30 White Blood Count 14.8 H Red Blood Count 3.11 L Hemoglobin 9.2 L Hematocrit 27.4 L Mean Corpuscular Volume 88.1 Mean Corpuscular Hemoglobin 29.6 Mean Corpuscular Hemoglobin Concent 33.6 Red Cell Distribution Width 15.4 H Platelet Count 195 Mean Platelet Volume 10.7 H Neutrophils % 84.1 H Lymphocytes % 7.9 L Monocytes % 7.1 Eosinophils % 0.3 Basophils % 0.1 Nucleated Red Blood Cells % 0.0 Neutrophils # 12.4 H Lymphocytes # 1.2 Monocytes # 1.1 H Eosinophils # 0.1 Basophils # 0.0 Nucleated Red Blood Cells # 0.0 Medications Medications Current Medications Ondansetron HCl (Zofran Inj) 4 mg Q6H PRN IV NAUSEA AND/OR VOMITING Last administered on 12/13/16 01:13; Admin Dose 4 MG; Start 12/02/16 at 22:30 Miscellaneous Information 1 ea NOTE XX ; Start 12/02/16 at 23:00 Glucose (Glutose) 15 gm Q15M PRN PO DECREASED GLUCOSE; Start 12/02/16 at 23:00 Glucose (Glutose) 22.5 gm Q15M PRN PO DECREASED GLUCOSE; Start 12/02/16 at 23: 00 Dextrose (D50w Syringe) 25 ml Q15M PRN IV DECREASED GLUCOSE Last administered on 01/26/17 05:21; Admin Dose 25 ML; Start 12/02/16 at 23:00 Dextrose (D50w Syringe) 50 ml Q15M PRN IV DECREASED GLUCOSE Last administered on 01/23/17 04:58; Admin Dose 50 ML; Start 12/02/16 at 23:00 Glucagon (Glucagen) 1 mg Q15M PRN IM DECREASED GLUCOSE; Start 12/02/16 at 23:00 Glucose (Glutose) 15 gm Q15M PRN BUCCAL DECREASED GLUCOSE; Start 12/02/16 at 23 :00 Gabapentin (Neurontin) 800 mg TID PO Last administered on 12/08/16 20:33; Admin Dose 800 MG; Start 12/03/16 at 09:00; Status Future Hold Benazepril HCl (Lotensin) 10 mg DAILY PO Last administered on 12/07/16 08:26; Admin Dose 10 MG; Start 12/04/16 at 09:00; Status Future Hold Acetaminophen (Tylenol Supp) 650 mg Q6H PRN [place] ELEVATED TEMPERATURE Last administered on 01/13/17 20:32; Admin Dose 650 MG; Start 12/09/16 at 17:00 Hydralazine HCl (Apresoline) 10 mg Q6H PRN IV SBP>150mm hg Last administered on 12/19/16 08:50; Admin Dose 10 MG; Start 12/11/16 at 10:30 Morphine Sulfate (morphine) 2 mg Q2H PRN IV PAIN LEVEL 4-7; Start 12/13/16 at 10 :00 Collagenase (Santyl) 1 applic DAILY TOP Last administered on 02/01/17 09:59; Admin Dose 1 APPLIC; Start 01/04/17 at 09:00 Metoprolol Tartrate (Lopressor) 5 mg Q4 PRN IV FOR H.R>110; Start 01/12/17 at 17:30 Acetaminophen (Tylenol Liquid) 650 mg Q6H PRN NGT PAIN AND OR ELEVATED TEMP Last administered on 01/28/17 06:13; Admin Dose 650 MG; Start 01/13/17 at 23:30 Apixaban (Eliquis) 2.5 mg BID NGT Last administered on 01/30/17 08:18; Admin Dose 2.5 MG; Start 01/13/17 at 21:00; Status Future Hold Acetaminophen/ Hydrocodone Bitart ([place] (5/325)) 1 tab Q6H PRN NGT PAIN LEVEL 4-7; Start 01/13/17 at 23:30 Levetiracetam (Keppra Liquid) 1,000 mg DAILY NGT Last administered on 09:56; Admin Dose 1,000 MG; Start 01/14/17 at 09:00 Meclizine HCl (Antivert) 25 mg TID PRN NGT dizziness; Start 01/13/17 at 20:00 Zolpidem Tartrate (Ambien) 5 mg HS PRN NGT INSOMNIA; Start 01/13/17 at 20:00 Aspirin (Aspirin) 81 mg DAILY NGT Last administered on 01/30/17 08:18; Admin Dose 81 MG; Start 01/14/17 at 09:00; Status Future Hold Docusate Sodium (Colace Liquid Cup) 100 mg BID NGT Last administered on 20:27; Admin Dose 100 MG; Start 01/13/17 at 21:00 Pantoprazole (Protonix Iv) 40 mg DAILY@06 IV Last administered on 02/02/17 06: 09; Admin Dose 40 MG; Start 01/14/17 at 06:00 Amiodarone HCl (Cordarone) 200 mg Q8 NGT Last administered on 02/01/17 22:28; Admin Dose 200 MG; Start 01/17/17 at 14:00 Metoprolol Tartrate (Lopressor) 12.5 mg BID NGT Last administered on 02/01/17 20:27; Admin Dose 12.5 MG; Start 01/24/17 at 21:00 Insulin Aspart (Novolog Insulin Pen) NOVOLOG *MODERATE* ALGORI... Q4 SC Last administered on 02/02/17 04:55; Admin Dose 2 UNIT; Start 01/25/17 at 13:00 Insulin Glargine (Lantus) 30 unit DAILY@20 SC Last administered on 02/01/17 20 :26; Admin Dose 30 UNIT; Start 01/26/17 at 20:00 Nystatin 5 ml 5 ml Q6 PO Last administered on 02/02/17 06:09; Admin Dose 5 ML ; Start 01/31/17 at 12:00 Norepinephrine/ Dextrose (Levophed/D5W) 500 ml @ 0 mls/hr TITRATE IV ; Start at 07:00 CHRISTY LOPEZ M.D. Feb 02, 2017 09:29
--- NOTE | 2017-02-02 10:05 | CONS ---
Date/Time of Note Date/Time of Note DATE: 02/02/17 TIME: 10:02 Assessment/Plan Assessment/Plan Chief Complaint/Hosp Course IMPRESSION: 1. Atrial fibrillation-Having episodes of PAF with reasonable rate control 2. Hypotension-borderline and labile 3. Abnormal electrocardiogram with inferolateral T-wave inversions. 4. Respiratory failure-s/p trach placement 5. Nonhealing toe ulceration-vascular following 6. Peripheral arterial disease by arterial ultrasound of the lower extremities this admission. 7. Diabetes mellitus. 8. Fevers. 9. Positive troponin-downtrended 10.Bradycardia-improved/stable 11.-severe by echo 12.Cardiomyopathy-EF 40-45% by echo/36% by stress with no ischemia but positive scar. EF <30% by echo post arrest 14.Encephalopathy-anoxic 15. s/p cardiopulmonary arrest 01/08 Recc: -Tele -serial ecg -HD for volume removal as tolerated -ASA held due to trach site bleeding -eliquis held in anticiation of possible G tube placement and due to trach site bleeding -Continue PO amio in attempt to maintain SR -Continue BB as tolerated only following HR/BP closely -Will hold on afterload reduction given severe and thus fixed afterload at valve orifice Problems: Consultation Date/Type/Reason Admit Date/Time Dec 02, 2016 at 21:01 Initial Consult Date 12/03/16 Type of Consultation: cardiology Reason for Consultation PAF//cardiomyopathy Referring Provider: VIET PARKER MD Exam/Review of Systems Vital Signs Vitals Vital Signs Date Time Temp Pulse Resp B/P Pulse Ox O2 Delivery O2 Flow Rate FiO2 02/02/17 09:36 84 20 100 40 02/02/17 06:00 108/42 Mechanical Ventilator 02/02/17 04:00 99.2 Intake and Output 02/01/17 02/01/17 02/02/17 15:00 23:00 07:00 Intake Total 595 ml 260 ml 340 ml Output Total 200 ml 150 ml 200 ml Balance 395 ml 110 ml 140 ml Exam Review of Systems: CONSTITUTIONAL: No fevers, chills. PULMONARY: trached CARDIOVASCULAR: No chest pain/palpitations GASTROINTESTINAL: No nausea/vomiting. GENITOURINARY: No hematuria/dysuria. MUSCULOSKELETAL: No myagias/arthalgias. PSYCHIATRIC: The patient denies depression. NEUROLOGIC:Encephalopathic Constitutional: alert Psych: no complaints Head: normocephalic ENMT: mucosa pink and moist Neck: supple Respiratory: clear to auscultation Cardiovascular: regular rate and rhythm Gastrointestinal: non-tender, soft Musculoskeletal: muscle tone (normal) Extremities: edema Neurological: other (encephalopathic) Results Result Diagram: 02/02/17 0630 02/01/17 0523 Results 24 hrs Laboratory Tests Test 02/01/17 13:05 02/01/17 14:40 02/01/17 17:48 02/01/17 20:23 Bedside Glucose 190 220 202 Hemoglobin 7.5 L Hematocrit 22.2 L Test 02/01/17 21:27 02/01/17 23:50 02/02/17 00:45 02/02/17 04:54 Bedside Glucose 206 166 143 Hemoglobin 7.8 L Hematocrit 23.4 L Test 02/02/17 05:17 02/02/17 06:30 Lab Scanned Report BLOOD TRANSFUSION White Blood Count 14.8 H Red Blood Count 3.11 L Hemoglobin 9.2 L Hematocrit 27.4 L Mean Corpuscular Volume 88.1 Mean Corpuscular Hemoglobin 29.6 Mean Corpuscular Hemoglobin Concent 33.6 Red Cell Distribution Width 15.4 H Platelet Count 195 Mean Platelet Volume 10.7 H Neutrophils % 84.1 H Lymphocytes % 7.9 L Monocytes % 7.1 Eosinophils % 0.3 Basophils % 0.1 Nucleated Red Blood Cells % 0.0 Neutrophils # 12.4 H Lymphocytes # 1.2 Monocytes # 1.1 H Eosinophils # 0.1 Basophils # 0.0 Nucleated Red Blood Cells # 0.0 Medications Medications Current Medications Ondansetron HCl (Zofran Inj) 4 mg Q6H PRN IV NAUSEA AND/OR VOMITING Last administered on 12/13/16 01:13; Admin Dose 4 MG; Start 12/02/16 at 22:30 Miscellaneous Information 1 ea NOTE XX ; Start 12/02/16 at 23:00 Glucose (Glutose) 15 gm Q15M PRN PO DECREASED GLUCOSE; Start 12/02/16 at 23:00 Glucose (Glutose) 22.5 gm Q15M PRN PO DECREASED GLUCOSE; Start 12/02/16 at 23: 00 Dextrose (D50w Syringe) 25 ml Q15M PRN IV DECREASED GLUCOSE Last administered on 01/26/17 05:21; Admin Dose 25 ML; Start 12/02/16 at 23:00 Dextrose (D50w Syringe) 50 ml Q15M PRN IV DECREASED GLUCOSE Last administered on 01/23/17 04:58; Admin Dose 50 ML; Start 12/02/16 at 23:00 Glucagon (Glucagen) 1 mg Q15M PRN IM DECREASED GLUCOSE; Start 12/02/16 at 23:00 Glucose (Glutose) 15 gm Q15M PRN BUCCAL DECREASED GLUCOSE; Start 12/02/16 at 23 :00 Gabapentin (Neurontin) 800 mg TID PO Last administered on 12/08/16 20:33; Admin Dose 800 MG; Start 12/03/16 at 09:00; Status Future Hold Benazepril HCl (Lotensin) 10 mg DAILY PO Last administered on 12/07/16 08:26; Admin Dose 10 MG; Start 12/04/16 at 09:00; Status Future Hold Acetaminophen (Tylenol Supp) 650 mg Q6H PRN [place] ELEVATED TEMPERATURE Last administered on 01/13/17 20:32; Admin Dose 650 MG; Start 12/09/16 at 17:00 Hydralazine HCl (Apresoline) 10 mg Q6H PRN IV SBP>150mm hg Last administered on 12/19/16 08:50; Admin Dose 10 MG; Start 12/11/16 at 10:30 Morphine Sulfate (morphine) 2 mg Q2H PRN IV PAIN LEVEL 4-7; Start 12/13/16 at 10 :00 Collagenase (Santyl) 1 applic DAILY TOP Last administered on 02/02/17 09:26; Admin Dose 1 APPLIC; Start 01/04/17 at 09:00 Metoprolol Tartrate (Lopressor) 5 mg Q4 PRN IV FOR H.R>110; Start 01/12/17 at 17:30 Acetaminophen (Tylenol Liquid) 650 mg Q6H PRN NGT PAIN AND OR ELEVATED TEMP Last administered on 01/28/17 06:13; Admin Dose 650 MG; Start 01/13/17 at 23:30 Apixaban (Eliquis) 2.5 mg BID NGT Last administered on 01/30/17 08:18; Admin Dose 2.5 MG; Start 01/13/17 at 21:00; Status Future Hold Acetaminophen/ Hydrocodone Bitart ([place] (5/325)) 1 tab Q6H PRN NGT PAIN LEVEL 4-7; Start 01/13/17 at 23:30 Levetiracetam (Keppra Liquid) 1,000 mg DAILY NGT Last administered on 09:23; Admin Dose 1,000 MG; Start 01/14/17 at 09:00 Meclizine HCl (Antivert) 25 mg TID PRN NGT dizziness; Start 01/13/17 at 20:00 Zolpidem Tartrate (Ambien) 5 mg HS PRN NGT INSOMNIA; Start 01/13/17 at 20:00 Aspirin (Aspirin) 81 mg DAILY NGT Last administered on 01/30/17 08:18; Admin Dose 81 MG; Start 01/14/17 at 09:00; Status Future Hold Docusate Sodium (Colace Liquid Cup) 100 mg BID NGT Last administered on 09:22; Admin Dose 100 MG; Start 01/13/17 at 21:00 Pantoprazole (Protonix Iv) 40 mg DAILY@06 IV Last administered on 02/02/17 06: 09; Admin Dose 40 MG; Start 01/14/17 at 06:00 Amiodarone HCl (Cordarone) 200 mg Q8 NGT Last administered on 02/02/17 09:25; Admin Dose 200 MG; Start 01/17/17 at 14:00 Metoprolol Tartrate (Lopressor) 12.5 mg BID NGT Last administered on 02/01/17 20:27; Admin Dose 12.5 MG; Start 01/24/17 at 21:00 Insulin Aspart (Novolog Insulin Pen) NOVOLOG *MODERATE* [place]GORI... Q4 SC Last administered on 02/02/17 04:55; Admin Dose 2 UNIT; Start 01/25/17 at 13:00 Insulin Glargine (Lantus) 30 unit DAILY@20 SC Last administered on 02/01/17 20 :26; Admin Dose 30 UNIT; Start 01/26/17 at 20:00 Nystatin 5 ml 5 ml Q6 PO Last administered on 02/02/17 06:09; Admin Dose 5 ML ; Start 01/31/17 at 12:00 Norepinephrine 16 mg/Dextrose 500 ml @ 0 mls/hr TITRATE IV ; Start 02/01/17 at 07:00 Fluconazole/ Sodium Chloride (Diflucan 100 Mg/ NS (Pmx)) 50 ml @ 50 mls/hr Q24H IVPB ; Start 02/02/17 at 11:00 VICENTE LESLIE Feb 02, 2017 10:05
--- NOTE | 2017-02-02 10:34 | CONS ---
Date/Time of Note Date/Time of Note DATE: 02/02/17 TIME: 10:32 Assessment/Plan Assessment/Plan Chief Complaint/Hosp Course - possible recurrent sepsis - recurrent cardiopulmonary arrest on 12/09/2016 and on 01/08/2017 - s/p sepsis due to possible tracheobronchitis/pneumonia - recurrent tracheobronchitis/pneumonia due to pseudomonas - thrush, refractory to nystatin - funguria - bleeding from trach site - s/p recurrent sepsis - 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 Blood cultures from HD catheter on 12/13/2016 are negative to date. 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 MRI on 12/06/2016 and bone scan on showed 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 and left fourth proximal phalanx. superficial swab grew inna only. At present, no e/o persistent infection - recurrent pleural effusion - s/p right pleural effusion s/p thoracentesis with .9L removed on 12/16/2016; ( Note: there is no pleural fluid cx since orders were placed after Right thoracentesis, and Left thoracentesis was not performed on 12/17/16 d/t insufficient fluid) - ARANZA on CKD that progressed to ESRD and started on HD from 12/09/2016 - oliguria - improved - A fib -> PAF - small nonreversible perfusion abnormality in the inferoapical and inferior carver; EF 36% per Lexiscan 12/24/2016 - severe , EF 40-45% per TTE 12/17/16 - DM - Hgb A1c 8.7% - HTN associated with DM - acute encephalopathy with anoxic brain injury - unstageable decubitus ulcer of coccyx, no evidence of infection - urinary retention NOTE: Pt completed 6 weeks (12/03/2016-01/15/2017) of antibiotics to treat 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 and left fourth proximal phalanx ; s/p pip/tazo 12/03/16-01/08/17; linezolid 01/08/17-01/20/17; caspofungin 01/12/17-01/21/17 REVISED recommendations: - pending results: urine, blood cultures from 02/01/2017, blood cultures from HD catheter on 02/02/2017 - re-start renally dosed cefepime for Gram negative rods in his sputum - add IV renally dosed fluconazole for refractory thrush - continue nystatin for thrush management d/w Pt's RN, son the critical care time I took to care for this Pt today was from 0820 to 0900 and 0940 to 0950 Problems: Consultation Date/Type/Reason Admit Date/Time Dec 02, 2016 at 21:01 Initial Consult Date 12/03/16 Type of Consultation: cardiology Referring Provider: VIET PARKER MD Exam/Review of Systems Vital Signs Vitals Vital Signs Date Time Temp Pulse Resp B/P Pulse Ox O2 Delivery O2 Flow Rate FiO2 02/02/17 09:36 84 20 100 40 02/02/17 06:00 108/42 Mechanical Ventilator 02/02/17 04:00 99.2 Intake and Output 02/01/17 02/01/17 02/02/17 15:00 23:00 07:00 Intake Total 595 ml 260 ml 340 ml Output Total 200 ml 150 ml 200 ml Balance 395 ml 110 ml 140 ml Results Result Diagram: 02/02/17 0630 02/01/17 0523 Results 24 hrs Laboratory Tests Test 02/01/17 13:05 02/01/17 14:40 02/01/17 17:48 02/01/17 20:23 Bedside Glucose 190 220 202 Hemoglobin 7.5 L Hematocrit 22.2 L Test 02/01/17 21:27 02/01/17 23:50 02/02/17 00:45 02/02/17 04:54 Bedside Glucose 206 166 143 Hemoglobin 7.8 L Hematocrit 23.4 L Test 02/02/17 05:17 02/02/17 06:30 02/02/17 09:56 Lab Scanned Report BLOOD TRANSFUSION White Blood Count 14.8 H Red Blood Count 3.11 L Hemoglobin 9.2 L Hematocrit 27.4 L Mean Corpuscular Volume 88.1 Mean Corpuscular Hemoglobin 29.6 Mean Corpuscular Hemoglobin Concent 33.6 Red Cell Distribution Width 15.4 H Platelet Count 195 Mean Platelet Volume 10.7 H Neutrophils % 84.1 H Lymphocytes % 7.9 L Monocytes % 7.1 Eosinophils % 0.3 Basophils % 0.1 Nucleated Red Blood Cells % 0.0 Neutrophils # 12.4 H Lymphocytes # 1.2 Monocytes # 1.1 H Eosinophils # 0.1 Basophils # 0.0 Nucleated Red Blood Cells # 0.0 Bedside Glucose 188 Medications Medications Current Medications Ondansetron HCl (Zofran Inj) 4 mg Q6H PRN IV NAUSEA AND/OR VOMITING Last administered on 12/13/16 01:13; Admin Dose 4 MG; Start 12/02/16 at 22:30 Miscellaneous Information 1 ea NOTE XX ; Start 12/02/16 at 23:00 Glucose (Glutose) 15 gm Q15M PRN PO DECREASED GLUCOSE; Start 12/02/16 at 23:00 Glucose (Glutose) 22.5 gm Q15M PRN PO DECREASED GLUCOSE; Start 12/02/16 at 23: 00 Dextrose (D50w Syringe) 25 ml Q15M PRN IV DECREASED GLUCOSE Last administered on 01/26/17 05:21; Admin Dose 25 ML; Start 12/02/16 at 23:00 Dextrose (D50w Syringe) 50 ml Q15M PRN IV DECREASED GLUCOSE Last administered on 01/23/17 04:58; Admin Dose 50 ML; Start 12/02/16 at 23:00 Glucagon (Glucagen) 1 mg Q15M PRN IM DECREASED GLUCOSE; Start 12/02/16 at 23:00 Glucose (Glutose) 15 gm Q15M PRN BUCCAL DECREASED GLUCOSE; Start 12/02/16 at 23 :00 Gabapentin (Neurontin) 800 mg TID PO Last administered on 12/08/16 20:33; Admin Dose 800 MG; Start 12/03/16 at 09:00; Status Future Hold Benazepril HCl (Lotensin) 10 mg DAILY PO Last administered on 12/07/16 08:26; Admin Dose 10 MG; Start 12/04/16 at 09:00; Status Future Hold Acetaminophen (Tylenol Supp) 650 mg Q6H PRN [place] ELEVATED TEMPERATURE Last administered on 01/13/17 20:32; Admin Dose 650 MG; Start 12/09/16 at 17:00 Hydralazine HCl (Apresoline) 10 mg Q6H PRN IV SBP>150mm hg Last administered on 12/19/16 08:50; Admin Dose 10 MG; Start 12/11/16 at 10:30 Morphine Sulfate (morphine) 2 mg Q2H PRN IV PAIN LEVEL 4-7; Start 12/13/16 at 10 :00 Collagenase (Santyl) 1 applic DAILY TOP Last administered on 02/02/17 09:26; Admin Dose 1 APPLIC; Start 01/04/17 at 09:00 Metoprolol Tartrate (Lopressor) 5 mg Q4 PRN IV FOR H.R>110; Start 01/12/17 at 17:30 Acetaminophen (Tylenol Liquid) 650 mg Q6H PRN NGT PAIN AND [place] ELEVATED TEMP Last administered on 01/28/17 06:13; Admin Dose 650 MG; Start 01/13/17 at 23:30 Apixaban (Eliquis) 2.5 mg BID NGT Last administered on 01/30/17 08:18; Admin Dose 2.5 MG; Start 01/13/17 at 21:00; Status Future Hold Acetaminophen/ Hydrocodone Bitart ([place] (5/325)) 1 tab Q6H PRN NGT PAIN LEVEL 4-7; Start 01/13/17 at 23:30 Levetiracetam (Keppra Liquid) 1,000 mg DAILY NGT Last administered on 09:23; Admin Dose 1,000 MG; Start 01/14/17 at 09:00 Meclizine HCl (Antivert) 25 mg TID PRN NGT dizziness; Start 01/13/17 at 20:00 Zolpidem Tartrate (Ambien) 5 mg HS PRN NGT INSOMNIA; Start 01/13/17 at 20:00 Aspirin (Aspirin) 81 mg DAILY NGT Last administered on 01/30/17 08:18; Admin Dose 81 MG; Start 01/14/17 at 09:00; Status Future Hold Docusate Sodium (Colace Liquid Cup) 100 mg BID NGT Last administered on 09:22; Admin Dose 100 MG; Start 6/1/17 at 21:00 Pantoprazole (Protonix Iv) 40 mg DAILY@06 IV Last administered on 02/02/17 06: 09; Admin Dose 40 MG; Start 01/14/17 at 06:00 Amiodarone HCl (Cordarone) 200 mg Q8 NGT Last administered on 02/02/17 09:25; Admin Dose 200 MG; Start 01/17/17 at 14:00 Metoprolol Tartrate (Lopressor) 12.5 mg BID NGT Last administered on 02/01/17 20:27; Admin Dose 12.5 MG; Start 01/24/17 at 21:00 Insulin Aspart (Novolog Insulin Pen) NOVOLOG *MODERATE* ALGORI... Q4 SC Last administered on 02/02/17 10:07; Admin Dose 4 UNIT; Start 01/25/17 at 13:00 Insulin Glargine (Lantus) 30 unit DAILY@20 SC Last administered on 02/01/17 20 :26; Admin Dose 30 UNIT; Start 01/26/17 at 20:00 Nystatin 5 ml 5 ml Q6 PO Last administered on 02/02/17 06:09; Admin Dose 5 ML ; Start 01/31/17 at 12:00 Norepinephrine 16 mg/Dextrose 500 ml @ 0 mls/hr TITRATE IV ; Start 02/01/17 at 07:00 Fluconazole/ Sodium Chloride (Diflucan 100 Mg/ NS (Pmx)) 50 ml @ 50 mls/hr Q24H IVPB ; Start 02/02/17 at 11:00 CHRISTY LOPEZ M.D. Feb 02, 2017 10:34
[2017-02-02 10:43] LABS: CREATININE 1.05 mg/dl (0.61-1.24); POTASSIUM 4.1 mmol/L (3.5-5.1)
[2017-02-02] MEDS: FLUCONAZOLE 100 MG/NS (PMX) 50 ML IVPB SCH (11:33)
--- NOTE | 2017-02-02 11:48 | CONS ---
Date/Time of Note Date/Time of Note DATE: 02/02/17 TIME: 11:46 Assessment/Plan Assessment/Plan Additional Assessment/Plan Ventilator setting; AC of 16, tidal volume 500, PEEP of 5, 40% FiO2. Assessment recommendations; 1. Patient admitted with recurrent respiratory failure status post CPR resulting in severe anoxic brain injury. 2. Status post tracheostomy with tracheal insertion site bleeding with interval resolution after being given FFP. 3. Renal failure, now requiring hemodialysis. 4. Status post prolonged antibiotic treatment for toe osteo-myelitis. Continue current supportive care. Patient scheduled for G-tube placement. Overall prognosis remains poor. Consultation Date/Type/Reason Admit Date/Time Dec 02, 2016 at 21:01 Initial Consult Date 12/03/16 Type of Consultation: Pulmonary/critical care Referring Provider: VIET PARKER MD 24 HR Interval Summary Free Text/Dictation Patient condition remains unchanged. Rectal bleeding has stopped. Patient has remained hemodynamically stable. General exam; elderly male, on ventilator via tracheostomy currently in no distress. Unresponsive. Exam/Review of Systems Vital Signs Vitals Vital Signs Date Time Temp Pulse Resp B/P Pulse Ox O2 Delivery O2 Flow Rate FiO2 02/02/17 11:02 84 18 100 35 02/02/17 06:00 108/42 Mechanical Ventilator 02/02/17 04:00 99.2 Intake and Output 02/01/17 02/01/17 02/02/17 15:00 23:00 07:00 Intake Total 595 ml 260 ml 340 ml Output Total 200 ml 150 ml 200 ml Balance 395 ml 110 ml 140 ml Exam HEENT examination; supple neck, no JVD. No lymphadenopathy. Midline trachea. No thyromegaly. Tracheostomy in place. No active bleeding seen. Patient is edentulous. Chest examination; diminished but clear vessel. S1-S2 audible, no murmurs. Regular rhythm. Abdomen examination; soft, non-distended. No organomegaly. Bowel sounds audible. Extremity examination; no peripheral edema. [employer] examination; patient remains unresponsive. Results Result Diagram: 02/02/17 0630 02/02/17 0935 Results 24 hrs Laboratory Tests Test 02/01/17 13:05 02/01/17 14:40 02/01/17 17:48 02/01/17 20:23 Bedside Glucose 190 220 202 Hemoglobin 7.5 L Hematocrit 22.2 L Test 02/01/17 21:27 02/01/17 23:50 02/02/17 00:45 02/02/17 04:54 Bedside Glucose 206 166 143 Hemoglobin 7.8 L Hematocrit 23.4 L Test 02/02/17 05:17 02/02/17 06:30 02/02/17 09:35 02/02/17 09:56 Lab Scanned Report BLOOD TRANSFUSION White Blood Count 14.8 H Red Blood Count 3.11 L Hemoglobin 9.2 L Hematocrit 27.4 L Mean Corpuscular Volume 88.1 Mean Corpuscular Hemoglobin 29.6 Mean Corpuscular Hemoglobin Concent 33.6 Red Cell Distribution Width 15.4 H Platelet Count 195 Mean Platelet Volume 10.7 H Neutrophils % 84.1 H Lymphocytes % 7.9 L Monocytes % 7.1 Eosinophils % 0.3 Basophils % 0.1 Nucleated Red Blood Cells % 0.0 Neutrophils # 12.4 H Lymphocytes # 1.2 Monocytes # 1.1 H Eosinophils # 0.1 Basophils # 0.0 Nucleated Red Blood Cells # 0.0 Sodium Level 142 Potassium Level 4.1 Chloride Level 100 Carbon Dioxide Level 28 Anion Gap 18 H Blood Urea Nitrogen 35 #H Creatinine 1.05 Glucose Level 170 Calcium Level 9.0 Bedside Glucose 188 Medications Medications Current Medications Ondansetron HCl (Zofran Inj) 4 mg Q6H PRN IV NAUSEA AND/OR VOMITING Last administered on 12/13/16 01:13; Admin Dose 4 MG; Start 12/02/16 at 22:30 Miscellaneous Information 1 ea NOTE XX ; Start 12/02/16 at 23:00 Glucose (Glutose) 15 gm Q15M PRN PO DECREASED GLUCOSE; Start 12/02/16 at 23:00 Glucose (Glutose) 22.5 gm Q15M PRN PO DECREASED GLUCOSE; Start 12/02/16 at 23: 00 Dextrose (D50w Syringe) 25 ml Q15M PRN IV DECREASED GLUCOSE Last administered on 01/26/17 05:21; Admin Dose 25 ML; Start 12/02/16 at 23:00 Dextrose (D50w Syringe) 50 ml Q15M PRN IV DECREASED GLUCOSE Last administered on 01/23/17 04:58; Admin Dose 50 ML; Start 12/02/16 at 23:00 Glucagon (Glucagen) 1 mg Q15M PRN IM DECREASED GLUCOSE; Start 12/02/16 at 23:00 Glucose (Glutose) 15 gm Q15M PRN BUCCAL DECREASED GLUCOSE; Start 12/02/16 at 23 :00 Gabapentin (Neurontin) 800 mg TID PO Last administered on 12/08/16 20:33; Admin Dose 800 MG; Start 12/03/16 at 09:00; Status Future Hold Benazepril HCl (Lotensin) 10 mg DAILY PO Last administered on 12/07/16 08:26; Admin Dose 10 MG; Start 12/04/16 at 09:00; Status Future Hold Acetaminophen (Tylenol Supp) 650 mg Q6H PRN [place] ELEVATED TEMPERATURE Last administered on 01/13/17 20:32; Admin Dose 650 MG; Start 12/09/16 at 17:00 Hydralazine HCl (Apresoline) 10 mg Q6H PRN IV SBP>150mm hg Last administered on 12/19/16 08:50; Admin Dose 10 MG; Start 12/11/16 at 10:30 Morphine Sulfate (morphine) 2 mg Q2H PRN IV PAIN LEVEL 4-7; Start 12/13/16 at 10 :00 Collagenase (Santyl) 1 applic DAILY TOP Last administered on 02/02/17 09:26; Admin Dose 1 APPLIC; Start 01/04/17 at 09:00 Metoprolol Tartrate (Lopressor) 5 mg Q4 PRN IV FOR H.R>110; Start 01/12/17 at 17:30 Acetaminophen (Tylenol Liquid) 650 mg Q6H PRN NGT PAIN AND OR ELEVATED TEMP Last administered on 01/28/17 06:13; Admin Dose 650 MG; Start 01/13/17 at 23:30 Apixaban (Eliquis) 2.5 mg BID NGT Last administered on 01/30/17 08:18; Admin Dose 2.5 MG; Start 01/13/17 at 21:00; Status Future Hold Acetaminophen/ Hydrocodone Bitart ([place] (5/325)) 1 tab Q6H PRN NGT PAIN LEVEL 4-7; Start 01/13/17 at 23:30 Levetiracetam (Keppra Liquid) 1,000 mg DAILY NGT Last administered on 09:23; Admin Dose 1,000 MG; Start 01/14/17 at 09:00 Meclizine HCl (Antivert) 25 mg TID PRN NGT dizziness; Start 01/13/17 at 20:00 Zolpidem Tartrate (Ambien) 5 mg HS PRN NGT INSOMNIA; Start 01/13/17 at 20:00 Aspirin (Aspirin) 81 mg DAILY NGT Last administered on 01/30/17 08:18; Admin Dose 81 MG; Start 01/14/17 at 09:00; Status Future Hold Docusate Sodium (Colace Liquid Cup) 100 mg BID NGT Last administered on 09:22; Admin Dose 100 MG; Start 01/13/17 at 21:00 Pantoprazole (Protonix Iv) 40 mg DAILY@06 IV Last administered on 02/02/17 06: 09; Admin Dose 40 MG; Start 01/14/17 at 06:00 Amiodarone HCl (Cordarone) 200 mg Q8 NGT Last administered on 02/02/17 09:25; Admin Dose 200 MG; Start 01/17/17 at 14:00 Metoprolol Tartrate (Lopressor) 12.5 mg BID NGT Last administered on 02/01/17 20:27; Admin Dose 12.5 MG; Start 01/24/17 at 21:00 Insulin Aspart (Novolog Insulin Pen) NOVOLOG *MODERATE* ALGORI... Q4 SC Last administered on 02/02/17 10:07; Admin Dose 4 UNIT; Start 01/25/17 at 13:00 Insulin Glargine (Lantus) 30 unit DAILY@20 SC Last administered on 02/01/17 20 :26; Admin Dose 30 UNIT; Start 01/26/17 at 20:00 Nystatin 5 ml 5 ml Q6 PO Last administered on 02/02/17 06:09; Admin Dose 5 ML ; Start 01/31/17 at 12:00 Norepinephrine 16 mg/Dextrose 500 ml @ 0 mls/hr TITRATE IV ; Start 02/01/17 at 07:00 Fluconazole/ Sodium Chloride 50 ml @ 50 mls/hr Q24H IVPB Last administered on 11:33; Admin Dose 50 MLS/HR; Start 02/02/17 at 11:00 Cefepime HCl (Maxipime 1gm/50 ml (Pmx)) 50 ml @ 100 mls/hr DAILY IVPB ; Start 02/02/17 at 11:00 IKE MULLER Feb 02, 2017 11:48
[2017-02-02] MEDS: CEFEPIME 1GM/50 ML (PMX) 50 ML IVPB SCH (13:59)
--- NOTE | 2017-02-02 16:21 | CONS ---
Date/Time of Note Date/Time of Note DATE: 02/02/17 TIME: 16:19 Assessment/Plan Assessment/Plan Additional Assessment/Plan -S/p cardiopulmonary arrest on 12/09/2016 and on 01/08/2017 - 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 Blood cultures from HD catheter on 12/13/2016 are negative to date. 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 MRI on 12/06/2016 and bone scan on showed 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 and left fourth proximal phalanx. superficial swab grew inna only - s/p right pleural effusion s/p thoracentesis with .9L removed on 12/16/2016 - severe , EF 40-45% per TTE 12/17/16 - DM - Hgb A1c 8.7% - HTN associated with DM Tracheostomy site bleeding Plan: Plan for HD today s/p Tracheostomy, on ventilator, pt will need HD palcement at a unit where they can do a HD for pt with tracheostomy and PEG tube placemen t pt has severe , very labile BP sometimes with HD will continue to follow up for HD need Consultation Date/Type/Reason Admit Date/Time Dec 02, 2016 at 21:01 Initial Consult Date Type of Consultation: NEPHROLOGY Referring Provider: VIET PARKER MD 24 HR Interval Summary Free Text/Dictation plan for HD today , pt stable in ICU Exam/Review of Systems Vital Signs Vitals Vital Signs Date Time Temp Pulse Resp B/P Pulse Ox O2 Delivery O2 Flow Rate FiO2 02/02/17 15:42 84 17 99 35 02/02/17 06:00 108/42 Mechanical Ventilator 02/02/17 04:00 99.2 Intake and Output 02/01/17 02/01/17 02/02/17 15:00 23:00 07:00 Intake Total 595 ml 260 ml 340 ml Output Total 200 ml 150 ml 200 ml Balance 395 ml 110 ml 140 ml Exam Constitutional: frail, non-verbal Neck: other (trach, bleeding from it, swollen in general) Respiratory: crackles/rales Cardiovascular: nl pulses, regular rate and rhythm Gastrointestinal: non-tender, soft Musculoskeletal: nl extremities to inspection Extremities: No edema Neurological: confused, lethargic Skin: other (unstageable ulcer on coccyx) Results Result Diagram: 02/02/17 0630 02/02/17 0935 Results 24 hrs Laboratory Tests Test 02/01/17 17:48 02/01/17 20:23 02/01/17 21:27 02/01/17 23:50 Bedside Glucose 220 202 206 Hemoglobin 7.8 L Hematocrit 23.4 L Test 02/02/17 00:45 02/02/17 04:54 02/02/17 05:17 02/02/17 06:30 Bedside Glucose 166 143 Lab Scanned Report BLOOD TRANSFUSION White Blood Count 14.8 H Red Blood Count 3.11 L Hemoglobin 9.2 L Hematocrit 27.4 L Mean Corpuscular Volume 88.1 Mean Corpuscular Hemoglobin 29.6 Mean Corpuscular Hemoglobin Concent 33.6 Red Cell Distribution Width 15.4 H Platelet Count 195 Mean Platelet Volume 10.7 H Neutrophils % 84.1 H Lymphocytes % 7.9 L Monocytes % 7.1 Eosinophils % 0.3 Basophils % 0.1 Nucleated Red Blood Cells % 0.0 Neutrophils # 12.4 H Lymphocytes # 1.2 Monocytes # 1.1 H Eosinophils # 0.1 Basophils # 0.0 Nucleated Red Blood Cells # 0.0 Test 02/02/17 09:35 02/02/17 09:56 Sodium Level 142 Potassium Level 4.1 Chloride Level 100 Carbon Dioxide Level 28 Anion Gap 18 H Blood Urea Nitrogen 35 #H Creatinine 1.05 Glucose Level 170 Calcium Level 9.0 Bedside Glucose 188 Medications Medications Current Medications Ondansetron HCl (Zofran Inj) 4 mg Q6H PRN IV NAUSEA AND/OR VOMITING Last administered on 12/13/16t 01:13; Admin Dose 4 MG; Start 12/02/16 at 22:30 Miscellaneous Information 1 ea NOTE XX ; Start 12/02/16 at 23:00 Glucose (Glutose) 15 gm Q15M PRN PO DECREASED GLUCOSE; Start 12/02/16 at 23:00 Glucose (Glutose) 22.5 gm Q15M PRN PO DECREASED GLUCOSE; Start 12/02/16 at 23: 00 Dextrose (D50w Syringe) 25 ml Q15M PRN IV DECREASED GLUCOSE Last administered on 01/26/17 05:21; Admin Dose 25 ML; Start 12/02/16 at 23:00 Dextrose (D50w Syringe) 50 ml Q15M PRN IV DECREASED GLUCOSE Last administered on 01/23/17 04:58; Admin Dose 50 ML; Start 12/02/16 at 23:00 Glucagon (Glucagen) 1 mg Q15M PRN IM DECREASED GLUCOSE; Start 12/02/16 at 23:00 Glucose (Glutose) 15 gm Q15M PRN BUCCAL DECREASED GLUCOSE; Start 12/02/16 at 23 :00 Gabapentin (Neurontin) 800 mg TID PO Last administered on 12/08/16 20:33; Admin Dose 800 MG; Start 12/03/16 at 09:00; Status Future Hold Benazepril HCl (Lotensin) 10 mg DAILY PO Last administered on 12/07/16 08:26; Admin Dose 10 MG; Start 12/04/16 at 09:00; Status Future Hold Acetaminophen (Tylenol Supp) 650 mg Q6H PRN [place] ELEVATED TEMPERATURE Last administered on 01/13/17 20:32; Admin Dose 650 MG; Start 12/09/16 at 17:00 Hydralazine HCl (Apresoline) 10 mg Q6H PRN IV SBP>150mm hg Last administered on 12/19/16 08:50; Admin Dose 10 MG; Start 12/11/16 at 10:30 Morphine Sulfate (morphine) 2 mg Q2H PRN IV PAIN LEVEL 4-7; Start 12/13/16 at 10 :00 Collagenase (Santyl) 1 applic DAILY TOP Last administered on 02/02/17 09:26; Admin Dose 1 APPLIC; Start 01/04/17 at 09:00 Metoprolol Tartrate (Lopressor) 5 mg Q4 PRN IV FOR H.R>110; Start 01/12/17 at 17:30 Acetaminophen (Tylenol Liquid) 650 mg Q6H PRN NGT PAIN AND OR ELEVATED TEMP Last administered on 01/28/17 06:13; Admin Dose 650 MG; Start 01/13/17 at 23:30 Apixaban (Eliquis) 2.5 mg BID NGT Last administered on 01/30/17 08:18; Admin Dose 2.5 MG; Start 01/13/17 at 21:00; Status Future Hold Acetaminophen/ Hydrocodone Bitart ([place] (5/325)) 1 tab Q6H PRN NGT PAIN LEVEL 4-7; Start 01/13/17 at 23:30 Levetiracetam (Keppra Liquid) 1,000 mg DAILY NGT Last administered on 09:23; Admin Dose 1,000 MG; Start 01/14/17 at 09:00 Meclizine HCl (Antivert) 25 mg TID PRN NGT dizziness; Start 01/13/17 at 20:00 Zolpidem Tartrate (Ambien) 5 mg HS PRN NGT INSOMNIA; Start 01/13/17 at 20:00 Aspirin (Aspirin) 81 mg DAILY NGT Last administered on 01/30/17 08:18; Admin Dose 81 MG; Start 01/14/17 at 09:00; Status Future Hold Docusate Sodium (Colace Liquid Cup) 100 mg BID NGT Last administered on 09:22; Admin Dose 100 MG; Start 01/13/17 at 21:00 Pantoprazole (Protonix Iv) 40 mg DAILY@06 IV Last administered on 02/02/17 06: 09; Admin Dose 40 MG; Start 01/14/17 at 06:00 Amiodarone HCl (Cordarone) 200 mg Q8 NGT Last administered on 02/02/17 09:25; Admin Dose 200 MG; Start 01/17/17 at 14:00 Metoprolol Tartrate (Lopressor) 12.5 mg BID NGT Last administered on 02/01/17 20:27; Admin Dose 12.5 MG; Start 01/24/17 at 21:00 Insulin Aspart (Novolog Insulin Pen) NOVOLOG *MODERATE* ALGORI... Q4 SC Last administered on 02/02/17 10:07; Admin Dose 4 UNIT; Start 01/25/17 at 13:00 Insulin Glargine (Lantus) 30 unit DAILY@20 SC Last administered on 02/01/17 20 :26; Admin Dose 30 UNIT; Start 01/26/17 at 20:00 Nystatin 5 ml 5 ml Q6 PO Last administered on 02/02/17 13:58; Admin Dose 5 ML ; Start 01/31/17 at 12:00 Norepinephrine 16 mg/Dextrose 500 ml @ 0 mls/hr TITRATE IV ; Start 02/01/17 at 07:00 Fluconazole/ Sodium Chloride 50 ml @ 50 mls/hr Q24H IVPB Last administered on 11:33; Admin Dose 50 MLS/HR; Start 02/02/17 at 11:00 Cefepime HCl (Maxipime 1gm/50 ml (Pmx)) 50 ml @ 100 mls/hr DAILY IVPB Last administered on 02/02/17 13:59; Admin Dose 100 MLS/HR; Start 02/02/17 at 11:00 TASHIA MCGARRY MD Feb 02, 2017 16:20
--- NOTE | 2017-02-02 17:15 | PN ---
Date/Time of Note Date/Time of Note DATE: 02/02/17 TIME: 17:06 Assessment/Plan VTE Prophylaxis VTE Prophylaxis Intervention: SCD's Lines/Catheters IV C[facility]ter Type (from [facility]): Peripheral IV Central line still needed: Yes Assessment/Plan Chief Complaint/Hosp Course Patient's continues to have oozing from tracheostomy site, pending reassessment by ENT Dr. Nichols. ASSESSMENT AND PLAN: - Possible recurrent sepsis, continue antibiotics per ID Dr. Rollins is following infection disease consultation. - Anemia of blood loss. Continue to monitor H&H, transfuse as needed. - Status post cardiopulmonary arrest on 12/09/2016 and 01/08/2017. Continue ventilatory support. - Anoxic encephalopathy. Continue Keppra. - Status post tracheostomy on 01/23/2017. - Dysphagia. The patient is pending G-tube placement. - End-stage renal disease. Continue hemodialysis per nephrology. - Paroxysmal atrial fibrillation. Eliquis is currently held due to bleeding. - Diabetes mellitus type 2. Continue Lantus and NovoLog with sliding scale coverage with Accu-Cheks q. 4 hours. - Diabetic foot ulcer. Continue current wound care. - Osteomyelitis of the distal phalanx of the great left toe. Completed treatment for antibiotics. Continue sequential compression device for deep venous thrombosis prophylaxis and Protonix for peptic ulcer disease prophylaxis. Further recommendations based on clinical course. Plan of care discussed with Dr. Heredia. Problems: Exam/Review of Systems Vital Signs Vitals Vital Signs Date Time Temp Pulse Resp B/P Pulse Ox O2 Delivery O2 Flow Rate FiO2 02/02/17 15:42 84 17 99 35 02/02/17 06:00 108/42 Mechanical Ventilator 02/02/17 04:00 99.2 Intake and Output 02/01/17 02/01/17 02/02/17 15:00 23:00 07:00 Intake Total 595 ml 260 ml 340 ml Output Total 200 ml 150 ml 200 ml Balance 395 ml 110 ml 140 ml Exam Constitutional: non-verbal Head: atraumatic, normocephalic ENMT: other (Nasogastric tube) Neck: other (Tracheostomy), supple Respiratory: diminished breath sounds Cardiovascular: nl pulses Gastrointestinal: non-tender, soft Neurological: unresponsive Results Result Diagram: 02/02/17 0630 02/02/17 0935 Results 24 hrs Laboratory Tests Test 02/01/17 17:48 02/01/17 20:23 02/01/17 21:27 02/01/17 23:50 Bedside Glucose 220 202 206 Hemoglobin 7.8 L Hematocrit 23.4 L Test 02/02/17 00:45 02/02/17 04:54 02/02/17 05:17 02/02/17 06:30 Bedside Glucose 166 143 Lab Scanned Report BLOOD TRANSFUSION White Blood Count 14.8 H Red Blood Count 3.11 L Hemoglobin 9.2 L Hematocrit 27.4 L Mean Corpuscular Volume 88.1 Mean Corpuscular Hemoglobin 29.6 Mean Corpuscular Hemoglobin Concent 33.6 Red Cell Distribution Width 15.4 H Platelet Count 195 Mean Platelet Volume 10.7 H Neutrophils % 84.1 H Lymphocytes % 7.9 L Monocytes % 7.1 Eosinophils % 0.3 Basophils % 0.1 Nucleated Red Blood Cells % 0.0 Neutrophils # 12.4 H Lymphocytes # 1.2 Monocytes # 1.1 H Eosinophils # 0.1 Basophils # 0.0 Nucleated Red Blood Cells # 0.0 Test 02/02/17 09:35 02/02/17 09:56 Sodium Level 142 Potassium Level 4.1 Chloride Level 100 Carbon Dioxide Level 28 Anion Gap 18 H Blood Urea Nitrogen 35 #H Creatinine 1.05 Glucose Level 170 Calcium Level 9.0 Bedside Glucose 188 Medications Medications Current Medications Ondansetron HCl (Zofran Inj) 4 mg Q6H PRN IV NAUSEA AND/OR VOMITING Last administered on 12/13/16 01:13; Admin Dose 4 MG; Start 12/02/16 at 22:30 Miscellaneous Information 1 ea NOTE XX ; Start 12/02/16 at 23:00 Glucose (Glutose) 15 gm Q15M PRN PO DECREASED GLUCOSE; Start 12/02/16 at 23:00 Glucose (Glutose) 22.5 gm Q15M PRN PO DECREASED GLUCOSE; Start 12/02/16 at 23: 00 Dextrose (D50w Syringe) 25 ml Q15M PRN IV DECREASED GLUCOSE Last administered on 01/26/17 05:21; Admin Dose 25 ML; Start 12/02/16 at 23:00 Dextrose (D50w Syringe) 50 ml Q15M PRN IV DECREASED GLUCOSE Last administered on 01/23/17 04:58; Admin Dose 50 ML; Start 12/02/16 at 23:00 Glucagon (Glucagen) 1 mg Q15M PRN IM DECREASED GLUCOSE; Start 12/02/16 at 23:00 Glucose (Glutose) 15 gm Q15M PRN BUCCAL DECREASED GLUCOSE; Start 12/02/16 at 23 :00 Gabapentin (Neurontin) 800 mg TID PO Last administered on 12/08/16 20:33; Admin Dose 800 MG; Start 12/03/16 at 09:00; Status Future Hold Benazepril HCl (Lotensin) 10 mg DAILY PO Last administered on 12/07/16 08:26; Admin Dose 10 MG; Start 12/04/16 at 09:00; Status Future Hold Acetaminophen (Tylenol Supp) 650 mg Q6H PRN [place] ELEVATED TEMPERATURE Last administered on 01/13/17 20:32; Admin Dose 650 MG; Start 12/09/16 at 17:00 Hydralazine HCl (Apresoline) 10 mg Q6H PRN IV SBP>150mm hg Last administered on 12/19/16 08:50; Admin Dose 10 MG; Start 12/11/16 at 10:30 Morphine Sulfate (morphine) 2 mg Q2H PRN IV PAIN LEVEL 4-7; Start 12/13/16 at 10 :00 Collagenase (Santyl) 1 applic DAILY TOP Last administered on 02/02/17 09:26; Admin Dose 1 APPLIC; Start 01/04/17 at 09:00 Metoprolol Tartrate (Lopressor) 5 mg Q4 PRN IV FOR H.R>110; Start 01/12/17 at 17:30 Acetaminophen (Tylenol Liquid) 650 mg Q6H PRN NGT PAIN AND [place] ELEVATED TEMP Last administered on 01/28/17 06:13; Admin Dose 650 MG; Start 01/13/17 at 23:30 Apixaban (Eliquis) 2.5 mg BID NGT Last administered on 01/30/17 08:18; Admin Dose 2.5 MG; Start 01/13/17 at 21:00; Status Future Hold Acetaminophen/ Hydrocodone Bitart ([place] (5/325)) 1 tab Q6H PRN NGT PAIN LEVEL 4-7; Start 01/13/17 at 23:30 Levetiracetam (Keppra Liquid) 1,000 mg DAILY NGT Last administered on 09:23; Admin Dose 1,000 MG; Start 01/14/17 at 09:00 Meclizine HCl (Antivert) 25 mg TID PRN NGT dizziness; Start 01/13/17 at 20:00 Zolpidem Tartrate (Ambien) 5 mg HS PRN NGT INSOMNIA; Start 01/13/17 at 20:00 Aspirin (Aspirin) 81 mg DAILY NGT Last administered on 01/30/17 08:18; Admin Dose 81 MG; Start 01/14/17 at 09:00; Status Future Hold Docusate Sodium (Colace Liquid Cup) 100 mg BID NGT Last administered on 09:22; Admin Dose 100 MG; Start 01/13/17 at 21:00 Pantoprazole (Protonix Iv) 40 mg DAILY@06 IV Last administered on 02/02/17 06: 09; Admin Dose 40 MG; Start 01/14/17 at 06:00 Amiodarone HCl (Cordarone) 200 mg Q8 NGT Last administered on 02/02/17 09:25; Admin Dose 200 MG; Start 01/17/17 at 14:00 Metoprolol Tartrate (Lopressor) 12.5 mg BID NGT Last administered on 02/01/17 20:27; Admin Dose 12.5 MG; Start 01/24/17 at 21:00 Insulin Aspart (Novolog Insulin Pen) NOVOLOG *MODERATE* ALGORI... Q4 SC Last administered on 02/02/17 10:07; Admin Dose 4 UNIT; Start 01/25/17 at 13:00 Insulin Glargine (Lantus) 30 unit DAILY@20 SC Last administered on 02/01/17 20 :26; Admin Dose 30 UNIT; Start 01/26/17 at 20:00 Nystatin 5 ml 5 ml Q6 PO Last administered on 02/02/17 13:58; Admin Dose 5 ML ; Start 01/31/17 at 12:00 Norepinephrine 16 mg/Dextrose 500 ml @ 0 mls/hr TITRATE IV ; Start 02/01/17 at 07:00 Fluconazole/ Sodium Chloride 50 ml @ 50 mls/hr Q24H IVPB Last administered on 11:33; Admin Dose 50 MLS/HR; Start 02/02/17 at 11:00 Cefepime HCl (Maxipime 1gm/50 ml (Pmx)) 50 ml @ 100 mls/hr DAILY IVPB Last administered on 02/02/17t 13:59; Admin Dose 100 MLS/HR; Start 02/02/17 at 11:00 KIMBERLY NOYOLA Feb 02, 2017 17:15
[2017-02-02] MEDS: INSULIN GLARGINE [LANtus] 3 ML PEN SC SCH (20:48)
[2017-02-03] VITALS (36 sets, daily range): BP systolic 91–119; BP diastolic 35–56; PULSE 75–114; RESP 14–26
[2017-02-03] MEDS: ALBUTEROL 18 GM INHALER INH SCH ×4 (01:20→19:39)
[2017-02-03] MEDS: INSULIN ASPART [NOVOLOG] 3 ML PEN SC SCH ×6 (01:33→20:18)
[2017-02-03] MEDS: AMIODARONE 200 MG TAB NGT SCH ×3 (05:45→21:23)
[2017-02-03] MEDS: PANTOPRAZOLE 40 MG INJ IV SCH (05:45)
[2017-02-03] MEDS: NYSTATIN SUSP 5 ML CUP PO SCH ×3 (05:45→17:36)
[2017-02-03 06:40] LABS: ADD SCAN DIFF NO
[2017-02-03 06:43] LABS: BASOPHILS % 0.1 % (0.0-2.0); EOSINOPHILS % 0.1 % (0.0-7.0); HEMATOCRIT 25.4 % (42.0-52.0); HEMOGLOBIN 8.5 g/dl (14.0-18.0); LYMPHOCYTES # 1.2 10^3/ul (0.8-2.9); LYMPHOCYTES % 8.5 % (15.0-51.0); MEAN CORPUSCULAR HEMOGLOBIN 29.9 pg (29.0-33.0); MEAN CORPUSCULAR HGB CONC 33.5 g/dl (32.0-37.0); MEAN CORPUSCULAR VOLUME 89.4 fl (82.0-101.0); MONOCYTE # 0.9 10^3/ul (0.3-0.9); MONOCYTES % 6.5 % (0.0-11.0); NEUTROPHIL # 12.1 10^3/ul (1.6-7.5); NEUTROPHILS % 84.1 % (39.0-77.0); PLATELET COUNT 145 10^3/UL (140-415); RED BLOOD COUNT 2.84 10^6/ul (4.70-6.10); RED CELL DISTRIBUTION WIDTH 15.7 % (11.5-14.5); WHITE BLOOD COUNT 14.4 10^3/ul (4.8-10.8)
[2017-02-03 07:06] LABS: CALCIUM 8.6 mg/dl (8.4-10.2); CREATININE 1.71 mg/dl (0.61-1.24); POTASSIUM 4.4 mmol/L (3.5-5.1)
--- NOTE | 2017-02-03 09:00 | CONS ---
Date/Time of Note Date/Time of Note DATE: 02/03/17 TIME: 08:58 Assessment/Plan Assessment/Plan Chief Complaint/Hosp Course - possible recurrent sepsis - recurrent cardiopulmonary arrest on 12/09/2016 and on 01/08/2017 - s/p sepsis due to possible tracheobronchitis/pneumonia - recurrent tracheobronchitis/pneumonia due to pseudomonas - thrush, refractory to nystatin - funguria - bleeding from trach site - s/p recurrent sepsis - 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 Blood cultures from HD catheter on 12/13/2016 are negative to date. 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 MRI on 12/06/2016 and bone scan on showed 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 and left fourth proximal phalanx. superficial swab grew inna only. At present, no e/o persistent infection - recurrent pleural effusion - s/p right pleural effusion s/p thoracentesis with .9L removed on 12/16/2016; ( Note: there is no pleural fluid cx since orders were placed after Right thoracentesis, and Left thoracentesis was not performed on 12/17/16 d/t insufficient fluid) - ARANZA on CKD that progressed to ESRD and started on HD from 12/09/2016 - oliguria - improved - A fib -> PAF - small nonreversible perfusion abnormality in the inferoapical and inferior carevr; EF 36% per Lexiscan 12/24/2016 - severe , EF 40-45% per TTE 12/17/16 - DM - Hgb A1c 8.7% - HTN associated with DM - acute encephalopathy with anoxic brain injury - unstageable decubitus ulcer of coccyx, no evidence of infection - urinary retention NOTE: Pt completed 6 weeks (12/03/2016-01/15/2017) of antibiotics to treat 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 and left fourth proximal phalanx ; s/p pip/tazo 12/03/16-01/08/17; linezolid 01/08/17-01/20/17; caspofungin 01/12/17-01/21/17 recommendations: - pending results blood cultures from 02/01/2017, blood cultures from HD catheter on 02/02/2017 - continue renally dosed cefepime for pseudomonas (intermediate sensitivity), add neb tobramycin (sensitive) - continue IV renally dosed fluconazole for refractory thrush - continue nystatin for thrush the critical care time I took to care for this Pt today was 35 min Problems: Consultation Date/Type/Reason Admit Date/Time Dec 02, 2016 at 21:01 Initial Consult Date 12/03/16 Type of Consultation: ID Referring Provider: VIET PARKER MD 24 HR Interval Summary Subjective hx not possible: pt non-verbal, pt critical, pt critical status Exam/Review of Systems Vital Signs Vitals Vital Signs Date Time Temp Pulse Resp B/P Pulse Ox O2 Delivery O2 Flow Rate FiO2 02/03/17 08:00 98.2 106 16 106/52 98 Mechanical Ventilator Trach Collar 02/03/17 08:00 50 Intake and Output 02/02/17 02/02/17 02/03/17 15:00 23:00 07:00 Intake Total 790 ml 290 ml 340 ml Output Total 3115 ml 50 ml 0 ml Balance -2325 ml 240 ml 340 ml Exam Constitutional: frail, non-verbal Psych: confusion Head: normocephalic Eyes: nl conjunctiva, nl lids ENMT: nl external ears & nose Neck: other (trach with dried blood, no active hemorrhage) Respiratory: crackles/rales Cardiovascular: nl pulses, regular rate and rhythm Gastrointestinal: non-tender, soft Musculoskeletal: nl extremities to inspection Extremities: No edema Neurological: lethargic Skin: rash or lesions (decub in the sacrum) Results Result Diagram: 02/03/17 0545 02/03/17 0545 Results 24 hrs Laboratory Tests Test 02/02/17 09:35 02/02/17 09:56 02/02/17 18:21 02/02/17 18:53 Sodium Level 142 Potassium Level 4.1 Chloride Level 100 Carbon Dioxide Level 28 Anion Gap 18 H Blood Urea Nitrogen 35 #H Creatinine 1.05 Glucose Level 170 Calcium Level 9.0 Bedside Glucose 188 172 182 Test 02/02/17 20:45 02/03/17 01:29 02/03/17 05:34 02/03/17 05:45 Bedside Glucose 216 267 H Lab Scanned Report BLOOD TRANSFUSION White Blood Count 14.4 H Red Blood Count 2.84 L Hemoglobin 8.5 L Hematocrit 25.4 L Mean Corpuscular Volume 89.4 Mean Corpuscular Hemoglobin 29.9 Mean Corpuscular Hemoglobin Concent 33.5 Red Cell Distribution Width 15.7 H Platelet Count 145 # Mean Platelet Volume 11.0 H Neutrophils % 84.1 H Lymphocytes % 8.5 L Monocytes % 6.5 Eosinophils % 0.1 Basophils % 0.1 Nucleated Red Blood Cells % 0.0 Neutrophils # 12.1 H Lymphocytes # 1.2 Monocytes # 0.9 Eosinophils # 0.0 Basophils # 0.0 Nucleated Red Blood Cells # 0.0 Sodium Level 137 Potassium Level 4.4 Chloride Level 98 Carbon Dioxide Level 29 Anion Gap 14 Blood Urea Nitrogen 47 #H Creatinine 1.71 H Glucose Level 190 Calcium Level 8.6 Test 02/03/17 05:51 02/03/17 06:00 Bedside Glucose 196 Magnesium Level 2.6 H Medications Medications Current Medications Ondansetron HCl (Zofran Inj) 4 mg Q6H PRN IV NAUSEA AND/OR VOMITING Last administered on 12/13/16 01:13; Admin Dose 4 MG; Start 12/02/16 at 22:30 Miscellaneous Information 1 ea NOTE XX ; Start 12/02/16 at 23:00 Glucose (Glutose) 15 gm Q15M PRN PO DECREASED GLUCOSE; Start 12/02/16 at 23:00 Glucose (Glutose) 22.5 gm Q15M PRN PO DECREASED GLUCOSE; Start 12/02/16 at 23: 00 Dextrose (D50w Syringe) 25 ml Q15M PRN IV DECREASED GLUCOSE Last administered on 01/26/17 05:21; Admin Dose 25 ML; Start 12/02/16 at 23:00 Dextrose (D50w Syringe) 50 ml Q15M PRN IV DECREASED GLUCOSE Last administered on 01/23/17 04:58; Admin Dose 50 ML; Start 12/02/16 at 23:00 Glucagon (Glucagen) 1 mg Q15M PRN IM DECREASED GLUCOSE; Start 12/02/16 at 23:00 Glucose (Glutose) 15 gm Q15M PRN BUCCAL DECREASED GLUCOSE; Start 12/02/16 at 23 :00 Gabapentin (Neurontin) 800 mg TID PO Last administered on 12/08/16 20:33; Admin Dose 800 MG; Start 12/03/16 at 09:00; Status Future Hold Benazepril HCl (Lotensin) 10 mg DAILY PO Last administered on 12/07/16 08:26; Admin Dose 10 MG; Start 12/04/16 at 09:00; Status Future Hold Acetaminophen (Tylenol Supp) 650 mg Q6H PRN [place] ELEVATED TEMPERATURE Last administered on 01/13/17 20:32; Admin Dose 650 MG; Start 12/09/16 at 17:00 Hydralazine HCl (Apresoline) 10 mg Q6H PRN IV SBP>150mm hg Last administered on 12/19/16 08:50; Admin Dose 10 MG; Start 12/11/16 at 10:30 Morphine Sulfate (morphine) 2 mg Q2H PRN IV PAIN LEVEL 4-7; Start 12/13/16 at 10 :00 Collagenase (Santyl) 1 applic DAILY TOP Last administered on 02/02/17 09:26; Admin Dose 1 APPLIC; Start 01/04/17 at 09:00 Metoprolol Tartrate (Lopressor) 5 mg Q4 PRN IV FOR H.R>110; Start 01/12/17 at 17:30 Acetaminophen (Tylenol Liquid) 650 mg Q6H PRN NGT PAIN AND OR ELEVATED TEMP Last administered on 01/28/17 06:13; Admin Dose 650 MG; Start 01/13/17 at 23:30 Apixaban (Eliquis) 2.5 mg BID NGT Last administered on 01/30/17 08:18; Admin Dose 2.5 MG; Start 01/13/17 at 21:00; Status Future Hold Acetaminophen/ Hydrocodone Bitart ([place] (5/325)) 1 tab Q6H PRN NGT PAIN LEVEL 4-7; Start 01/13/17 at 23:30 Levetiracetam (Keppra Liquid) 1,000 mg DAILY NGT Last administered on 09:23; Admin Dose 1,000 MG; Start 01/14/17 at 09:00 Meclizine HCl (Antivert) 25 mg TID PRN NGT dizziness; Start 01/13/17 at 20:00 Zolpidem Tartrate (Ambien) 5 mg HS PRN NGT INSOMNIA; Start 01/13/17 at 20:00 Aspirin (Aspirin) 81 mg DAILY NGT Last administered on 01/30/17 08:18; Admin Dose 81 MG; Start 01/14/17 at 09:00; Status Future Hold Docusate Sodium (Colace Liquid Cup) 100 mg BID NGT Last administered on 20:40; Admin Dose 100 MG; Start 01/13/17 at 21:00 Pantoprazole (Protonix Iv) 40 mg DAILY@06 IV Last administered on 02/03/17 05: 45; Admin Dose 40 MG; Start 01/14/17 at 06:00 Amiodarone HCl (Cordarone) 200 mg Q8 NGT Last administered on 02/03/17 05:45; Admin Dose 200 MG; Start 01/17/17 at 14:00 Metoprolol Tartrate (Lopressor) 12.5 mg BID NGT Last administered on 02/01/17 20:27; Admin Dose 12.5 MG; Start 01/24/17 at 21:00 Insulin Aspart (Novolog Insulin Pen) NOVOLOG *MODERATE* [place]I... Q4 SC Last administered on 02/03/17 05:57; Admin Dose 4 UNIT; Start 01/25/17 at 13:00 Insulin Glargine (Lantus) 30 unit DAILY@20 SC Last administered on 02/02/17 20 :48; Admin Dose 30 UNIT; Start 01/26/17 at 20:00 Nystatin 5 ml 5 ml Q6 PO Last administered on 02/03/17 05:45; Admin Dose 5 ML ; Start 01/31/17 at 12:00 Norepinephrine 16 mg/Dextrose 500 ml @ 0 mls/hr TITRATE IV ; Start 02/01/17 at 07:00 Fluconazole/ Sodium Chloride 50 ml @ 50 mls/hr Q24H IVPB Last administered on 11:33; Admin Dose 50 MLS/HR; Start 02/02/17 at 11:00 Cefepime HCl (Maxipime 1gm/50 ml (Pmx)) 50 ml @ 100 mls/hr DAILY IVPB Last administered on 02/02/17t 13:59; Admin Dose 100 MLS/HR; Start 02/02/17 at 11:00 CHRISTY LOPEZ M.D. Feb 03, 2017 09:00
[2017-02-03] MEDS: LEVETIRACETAM (100 MG/ML) 5ML CUP NGT SCH (09:04)
[2017-02-03] MEDS: DOCUSATE SODIUM 10 MG/ML (10ML CUP) NGT SCH ×2 (09:04→20:16)
[2017-02-03] MEDS: COLLAGENASE 30 GM TUBE TOP SCH (09:04)
[2017-02-03] MEDS: CEFEPIME 1GM/50 ML (PMX) 50 ML IVPB SCH (09:04)
[2017-02-03] MEDS: METOPROLOL 25 MG TAB NGT SCH ×2 (09:07→20:16)
--- NOTE | 2017-02-03 11:00 | CONS ---
Date/Time of Note Date/Time of Note DATE: 02/03/17 TIME: 10:58 Assessment/Plan Assessment/Plan Chief Complaint/Hosp Course IMPRESSION: 1. Atrial fibrillation-Having episodes of PAF with reasonable rate control 2. Hypotension-borderline and labile 3. Abnormal electrocardiogram with inferolateral T-wave inversions. 4. Respiratory failure-s/p trach placement 5. Nonhealing toe ulceration-vascular following 6. Peripheral arterial disease by arterial ultrasound of the lower extremities this admission. 7. Diabetes mellitus. 8. Fevers. 9. Positive troponin-downtrended 10.Bradycardia-improved/stable 11.-severe by echo 12.Cardiomyopathy-EF 40-45% by echo/36% by stress with no ischemia but positive scar. EF <30% by echo post arrest 14.Encephalopathy-anoxic 15. s/p cardiopulmonary arrest 01/08 Recc: -Tele -serial ecg -HD for volume removal as tolerated -ASA held due to trach site bleeding -eliquis held in anticipation of possible G tube placement and due to trach site bleeding -Continue PO amio in attempt to maintain SR -Continue BB as tolerated only following HR/BP closely -Will hold on afterload reduction given severe and thus fixed afterload at valve orifice Problems: Consultation Date/Type/Reason Admit Date/Time Dec 02, 2016 at 21:01 Initial Consult Date 12/03/16 Type of Consultation: Cardiology Reason for Consultation PAF//cardiomyopathy Referring Provider: VIET PARKER MD Exam/Review of Systems Vital Signs Vitals Vital Signs Date Time Temp Pulse Resp B/P Pulse Ox O2 Delivery O2 Flow Rate FiO2 02/03/17 09:30 99 18 100 35 02/03/17 08:00 98.2 106/52 Mechanical Ventilator Trach Collar Intake and Output 02/02/17 02/02/17 02/03/17 15:00 23:00 07:00 Intake Total 790 ml 290 ml 340 ml Output Total 3115 ml 50 ml 0 ml Balance -2325 ml 240 ml 340 ml Exam Review of Systems: CONSTITUTIONAL: No fevers, chills. PULMONARY: trached CARDIOVASCULAR: No obvious chest pain/palpitations GASTROINTESTINAL: No nausea/vomiting. GENITOURINARY: No hematuria/dysuria. MUSCULOSKELETAL: No obvious myagias/arthalgias. PSYCHIATRIC: No documented depression. NEUROLOGIC: encephalopathy Constitutional: other (encephalopathic) Head: normocephalic ENMT: mucosa pink and moist, other (trached) Neck: jvd (9 cm water) Respiratory: diminished breath sounds (at bases/B) Cardiovascular: regular rate and rhythm Gastrointestinal: non-tender, soft Musculoskeletal: muscle weakness (generalized) Extremities: edema (none) Neurological: other (No focal deficits) Results Result Diagram: 02/03/17 0545 02/03/17 0545 Results 24 hrs Laboratory Tests Test 02/02/17 18:21 02/02/17 18:53 02/02/17 20:45 02/03/17 01:29 Bedside Glucose 172 182 216 267 H Test 02/03/17 05:34 02/03/17 05:45 02/03/17 05:51 02/03/17 06:00 Lab Scanned Report BLOOD TRANSFUSION White Blood Count 14.4 H Red Blood Count 2.84 L Hemoglobin 8.5 L Hematocrit 25.4 L Mean Corpuscular Volume 89.4 Mean Corpuscular Hemoglobin 29.9 Mean Corpuscular Hemoglobin Concent 33.5 Red Cell Distribution Width 15.7 H Platelet Count 145 # Mean Platelet Volume 11.0 H Neutrophils % 84.1 H Lymphocytes % 8.5 L Monocytes % 6.5 Eosinophils % 0.1 Basophils % 0.1 Nucleated Red Blood Cells % 0.0 Neutrophils # 12.1 H Lymphocytes # 1.2 Monocytes # 0.9 Eosinophils # 0.0 Basophils # 0.0 Nucleated Red Blood Cells # 0.0 Sodium Level 137 Potassium Level 4.4 Chloride Level 98 Carbon Dioxide Level 29 Anion Gap 14 Blood Urea Nitrogen 47 #H Creatinine 1.71 H Glucose Level 190 Calcium Level 8.6 Bedside Glucose 196 Magnesium Level 2.6 H Test 02/03/17 09:03 Bedside Glucose 222 H Medications Medications Current Medications Ondansetron HCl (Zofran Inj) 4 mg Q6H PRN IV NAUSEA AND/OR VOMITING Last administered on 12/13/16 01:13; Admin Dose 4 MG; Start 12/02/16 at 22:30 Miscellaneous Information 1 ea NOTE XX ; Start 12/02/16 at 23:00 Glucose (Glutose) 15 gm Q15M PRN PO DECREASED GLUCOSE; Start 12/02/16 at 23:00 Glucose (Glutose) 22.5 gm Q15M PRN PO DECREASED GLUCOSE; Start 12/02/16 at 23: 00 Dextrose (D50w Syringe) 25 ml Q15M PRN IV DECREASED GLUCOSE Last administered on 01/26/17 05:21; Admin Dose 25 ML; Start 12/02/16 at 23:00 Dextrose (D50w Syringe) 50 ml Q15M PRN IV DECREASED GLUCOSE Last administered on 01/23/17 04:58; Admin Dose 50 ML; Start 12/02/16 at 23:00 Glucagon (Glucagen) 1 mg Q15M PRN IM DECREASED GLUCOSE; Start 12/02/16 at 23:00 Glucose (Glutose) 15 gm Q15M PRN BUCCAL DECREASED GLUCOSE; Start 12/02/16 at 23 :00 Gabapentin (Neurontin) 800 mg TID PO Last administered on 12/08/16 20:33; Admin Dose 800 MG; Start 12/03/16 at 09:00; Status Future Hold Benazepril HCl (Lotensin) 10 mg DAILY PO Last administered on 12/07/16 08:26; Admin Dose 10 MG; Start 12/04/16 at 09:00; Status Future Hold Acetaminophen (Tylenol Supp) 650 mg Q6H PRN [place] ELEVATED TEMPERATURE Last administered on 01/13/17 20:32; Admin Dose 650 MG; Start 12/09/16 at 17:00 Hydralazine HCl (Apresoline) 10 mg Q6H PRN IV SBP>150mm hg Last administered on 12/19/16 08:50; Admin Dose 10 MG; Start 12/11/16 at 10:30 Morphine Sulfate (morphine) 2 mg Q2H PRN IV PAIN LEVEL 4-7; Start 12/13/16 at 10 :00 Collagenase (Santyl) 1 applic DAILY TOP Last administered on 02/03/17 09:04; Admin Dose 1 APPLIC; Start 01/04/17 at 09:00 Metoprolol Tartrate (Lopressor) 5 mg Q4 PRN IV FOR H.R>110; Start 01/12/17 at 17:30 Acetaminophen (Tylenol Liquid) 650 mg Q6H PRN NGT PAIN AND OR ELEVATED TEMP Last administered on 01/28/17 06:13; Admin Dose 650 MG; Start 01/13/17 at 23:30 Apixaban (Eliquis) 2.5 mg BID NGT Last administered on 01/30/17 08:18; Admin Dose 2.5 MG; Start 01/13/17 at 21:00; Status Future Hold Acetaminophen/ Hydrocodone Bitart ([place] (5/325)) 1 tab Q6H PRN NGT PAIN LEVEL 4-7; Start 01/13/17 at 23:30 Levetiracetam (Keppra Liquid) 1,000 mg DAILY NGT Last administered on 09:04; Admin Dose 1,000 MG; Start 01/14/17 at 09:00 Meclizine HCl (Antivert) 25 mg TID PRN NGT dizziness; Start 01/13/17 at 20:00 Zolpidem Tartrate (Ambien) 5 mg HS PRN NGT INSOMNIA; Start 01/13/17 at 20:00 Aspirin (Aspirin) 81 mg DAILY NGT Last administered on 01/30/17 08:18; Admin Dose 81 MG; Start 01/14/17 at 09:00; Status Future Hold Docusate Sodium (Colace Liquid Cup) 100 mg BID NGT Last administered on 09:04; Admin Dose 100 MG; Start 01/13/17 at 21:00 Pantoprazole (Protonix Iv) 40 mg DAILY@06 IV Last administered on 02/03/17 05: 45; Admin Dose 40 MG; Start 01/14/17 at 06:00 Amiodarone HCl (Cordarone) 200 mg Q8 NGT Last administered on 02/03/17 05:45; Admin Dose 200 MG; Start 01/17/17 at 14:00 Metoprolol Tartrate (Lopressor) 12.5 mg BID NGT Last administered on 02/03/17 09:07; Admin Dose 12.5 MG; Start 01/24/17 at 21:00 Insulin Aspart (Novolog Insulin Pen) NOVOLOG *MODERATE* ALGORI... Q4 SC Last administered on 02/03/17 09:08; Admin Dose 6 UNIT; Start 01/25/17 at 13:00 Insulin Glargine (Lantus) 30 unit DAILY@20 SC Last administered on 02/02/17 20 :48; Admin Dose 30 UNIT; Start 01/26/17 at 20:00 Nystatin 5 ml 5 ml Q6 PO Last administered on 6/22/17at 05:45; Admin Dose 5 ML ; Start 01/31/17 at 12:00 Norepinephrine 16 mg/Dextrose 500 ml @ 0 mls/hr TITRATE IV ; Start 02/01/17 at 07:00 Fluconazole/ Sodium Chloride 50 ml @ 50 mls/hr Q24H IVPB Last administered on 11:33; Admin Dose 50 MLS/HR; Start 02/02/17 at 11:00 Cefepime HCl (Maxipime 1gm/50 ml (Pmx)) 50 ml @ 100 mls/hr DAILY IVPB Last administered on 02/03/17 09:04; Admin Dose 100 MLS/HR; Start 02/02/17 at 11:00 VICENTE LESLIE Feb 03, 2017 11:00
[2017-02-03] MEDS: FLUCONAZOLE 100 MG/NS (PMX) 50 ML IVPB SCH (11:41)
[2017-02-03] MEDS: TOBRAMYCIN/0.25NS 300 MG/5 ML INHAL NEB SCH ×2 (11:48→19:39)
--- NOTE | 2017-02-03 12:02 | CONS ---
Date/Time of Note Date/Time of Note DATE: 02/03/17 TIME: 11:59 Assessment/Plan Assessment/Plan Additional Assessment/Plan Ventilator setting; AC of 16, tidal volume 500, PEEP of 5, 35% FiO2. Assessment recommendations; 1. P patient admitted for recurrent respiratory failure to ICU status post CPR with resulting severe anoxic brain injury. Status post tracheostomy. 2. Patient had tracheal bleeding which is f not active anymore. Status post FFP administration. 3. Chronic renal failure, on hemodialysis. 4. History of recent osteomyelitis involving the toe. Patient off antibiotics now. 5. Peripheral vascular disease. Continue current treatment. Patient will transfer to telemetry unit. Overall prognosis remains very poor. Consultation Date/Type/Reason Admit Date/Time Dec 02, 2016 at 21:01 Initial Consult Date 12/03/16 Type of Consultation: Pulmonary/critical care Referring Provider: VIET PARKER MD 24 HR Interval Summary Free Text/Dictation Patient condition remains unchanged. Remains unresponsive. Has remained hemodynamically stable. General exam; elderly male, currently in no distress. Unresponsive. Exam/Review of Systems Vital Signs Vitals Vital Signs Date Time Temp Pulse Resp B/P Pulse Ox O2 Delivery O2 Flow Rate FiO2 02/03/17 11:53 80 19 100 35 02/03/17 08:00 98.2 106/52 Mechanical Ventilator Trach Collar Intake and Output 02/02/17 02/02/17 02/03/17 15:00 23:00 07:00 Intake Total 790 ml 290 ml 340 ml Output Total 3115 ml 50 ml 0 ml Balance -2325 ml 240 ml 340 ml Exam HEENT examination; supple neck, no JVD. No lymphadenopathy. Midline trachea. No thyromegaly. Patient is edentulous. No further tracheal bleeding noted. Tracheostomy in place. Chest examined; clear to ulceration. S1-S2 audible, no murmurs. Regular rhythm. Abdomen examination; soft, no organomegaly. Bowel sounds audible. Extremity examination; no peripheral edema. [employer] examination; patient remains unresponsive. Results Result Diagram: 02/03/17 0545 02/03/17 0545 Results 24 hrs Laboratory Tests Test 02/02/17 18:21 02/02/17 18:53 02/02/17 20:45 02/03/17 01:29 Bedside Glucose 172 182 216 267 H Test 02/03/17 05:34 02/03/17 05:45 02/03/17 05:51 02/03/17 06:00 Lab Scanned Report BLOOD TRANSFUSION White Blood Count 14.4 H Red Blood Count 2.84 L Hemoglobin 8.5 L Hematocrit 25.4 L Mean Corpuscular Volume 89.4 Mean Corpuscular Hemoglobin 29.9 Mean Corpuscular Hemoglobin Concent 33.5 Red Cell Distribution Width 15.7 H Platelet Count 145 # Mean Platelet Volume 11.0 H Neutrophils % 84.1 H Lymphocytes % 8.5 L Monocytes % 6.5 Eosinophils % 0.1 Basophils % 0.1 Nucleated Red Blood Cells % 0.0 Neutrophils # 12.1 H Lymphocytes # 1.2 Monocytes # 0.9 Eosinophils # 0.0 Basophils # 0.0 Nucleated Red Blood Cells # 0.0 Sodium Level 137 Potassium Level 4.4 Chloride Level 98 Carbon Dioxide Level 29 Anion Gap 14 Blood Urea Nitrogen 47 #H Creatinine 1.71 H Glucose Level 190 Calcium Level 8.6 Bedside Glucose 196 Magnesium Level 2.6 H Test 02/03/17 09:03 Bedside Glucose 222 H Medications Medications Current Medications Ondansetron HCl (Zofran Inj) 4 mg Q6H PRN IV NAUSEA AND/OR VOMITING Last administered on 12/13/16 01:13; Admin Dose 4 MG; Start 12/02/16 at 22:30 Miscellaneous Information 1 ea NOTE XX ; Start 12/02/16 at 23:00 Glucose (Glutose) 15 gm Q15M PRN PO DECREASED GLUCOSE; Start 12/02/16 at 23:00 Glucose (Glutose) 22.5 gm Q15M PRN PO DECREASED GLUCOSE; Start 12/02/16 at 23: 00 Dextrose (D50w Syringe) 25 ml Q15M PRN IV DECREASED GLUCOSE Last administered on 01/26/17 05:21; Admin Dose 25 ML; Start 12/02/16 at 23:00 Dextrose (D50w Syringe) 50 ml Q15M PRN IV DECREASED GLUCOSE Last administered on 01/23/17 04:58; Admin Dose 50 ML; Start 12/02/16 at 23:00 Glucagon (Glucagen) 1 mg Q15M PRN IM DECREASED GLUCOSE; Start 12/02/16 at 23:00 Glucose (Glutose) 15 gm Q15M PRN BUCCAL DECREASED GLUCOSE; Start 12/02/16 at 23 :00 Gabapentin (Neurontin) 800 mg TID PO Last administered on 12/08/16 20:33; Admin Dose 800 MG; Start 12/03/16 at 09:00; Status Future Hold Benazepril HCl (Lotensin) 10 mg DAILY PO Last administered on 12/07/16 08:26; Admin Dose 10 MG; Start 12/04/16 at 09:00; Status Future Hold Acetaminophen (Tylenol Supp) 650 mg Q6H PRN [place] ELEVATED TEMPERATURE Last administered on 01/13/17 20:32; Admin Dose 650 MG; Start 12/09/16 at 17:00 Hydralazine HCl (Apresoline) 10 mg Q6H PRN IV SBP>150mm hg Last administered on 12/19/16 08:50; Admin Dose 10 MG; Start 12/11/16 at 10:30 Morphine Sulfate (morphine) 2 mg Q2H PRN IV PAIN LEVEL 4-7; Start 12/13/16 at 10 :00 Collagenase (Santyl) 1 applic DAILY TOP Last administered on 02/03/17 09:04; Admin Dose 1 APPLIC; Start 01/04/17 at 09:00 Metoprolol Tartrate (Lopressor) 5 mg Q4 PRN IV FOR H.R>110; Start 01/12/17 at 17:30 Acetaminophen (Tylenol Liquid) 650 mg Q6H PRN NGT PAIN AND [place] ELEVATED TEMP Last administered on 01/28/17 06:13; Admin Dose 650 MG; Start 01/13/17 at 23:30 Apixaban (Eliquis) 2.5 mg BID NGT Last administered on 01/30/17 08:18; Admin Dose 2.5 MG; Start 01/13/17 at 21:00; Status Future Hold Acetaminophen/ Hydrocodone Bitart ([place] (5/325)) 1 tab Q6H PRN NGT PAIN LEVEL 4-7; Start 01/13/17 at 23:30 Levetiracetam (Keppra Liquid) 1,000 mg DAILY NGT Last administered on 09:04; Admin Dose 1,000 MG; Start 01/14/17 at 09:00 Meclizine HCl (Antivert) 25 mg TID PRN NGT dizziness; Start 01/13/17 at 20:00 Zolpidem Tartrate (Ambien) 5 mg HS PRN NGT INSOMNIA; Start 01/13/17 at 20:00 Aspirin (Aspirin) 81 mg DAILY NGT Last administered on 01/30/17 08:18; Admin Dose 81 MG; Start 01/14/17 at 09:00; Status Future Hold Docusate Sodium (Colace Liquid Cup) 100 mg BID NGT Last administered on 09:04; Admin Dose 100 MG; Start 01/13/17 at 21:00 Pantoprazole (Protonix Iv) 40 mg DAILY@06 IV Last administered on 02/03/17 05: 45; Admin Dose 40 MG; Start 01/14/17 at 06:00 Amiodarone HCl (Cordarone) 200 mg Q8 NGT Last administered on 02/03/17 05:45; Admin Dose 200 MG; Start 01/17/17 at 14:00 Metoprolol Tartrate (Lopressor) 12.5 mg BID NGT Last administered on 02/03/17 09:07; Admin Dose 12.5 MG; Start 01/24/17 at 21:00 Insulin Aspart (Novolog Insulin Pen) NOVOLOG *MODERATE* ALGORI... Q4 SC Last administered on 02/03/17 09:08; Admin Dose 6 UNIT; Start 01/25/17 at 13:00 Insulin Glargine (Lantus) 30 unit DAILY@20 SC Last administered on 02/02/17 20 :48; Admin Dose 30 UNIT; Start 01/26/17 at 20:00 Nystatin 5 ml 5 ml Q6 PO Last administered on 02/03/17 05:45; Admin Dose 5 ML ; Start 01/31/17 at 12:00 Norepinephrine 16 mg/Dextrose 500 ml @ 0 mls/hr TITRATE IV ; Start 02/01/17 at 07:00 Fluconazole/ Sodium Chloride 50 ml @ 50 mls/hr Q24H IVPB Last administered on 11:41; Admin Dose 50 MLS/HR; Start 02/02/17 at 11:00 Cefepime HCl (Maxipime 1gm/50 ml (Pmx)) 50 ml @ 100 mls/hr DAILY IVPB Last administered on 02/03/17 09:04; Admin Dose 100 MLS/HR; Start 02/02/17 at 11:00 QARNI,IKE Feb 03, 2017 12:02
--- NOTE | 2017-02-03 12:41 | PN ---
Date/Time of Note Date/Time of Note DATE: 02/03/17 TIME: 10:41 Assessment/Plan VTE Prophylaxis VTE Prophylaxis Intervention: SCD's Lines/Catheters IV Catheter Type (from Nrs): Peripheral IV Urinary Cath still in place: Yes ([facility] CATH) Reason Cath still needed: urinary retention Assessment/Plan Assessment/Plan - Possible recurrent sepsis, continue antibiotics per ID Dr. Rollins is following infection disease consultation. - Anemia of blood loss. Continue to monitor H&H, transfuse as needed. - Status post cardiopulmonary arrest on 12/09/2016 and 01/08/2017. Continue ventilatory support. - Anoxic encephalopathy. Continue Keppra. - Status post tracheostomy on 01/23/2017. - Dysphagia. The patient is pending G-tube placement. - End-stage renal disease. Continue hemodialysis per nephrology. - Paroxysmal atrial fibrillation. Eliquis is currently held due to bleeding. - Diabetes mellitus type 2. Continue Lantus and NovoLog with sliding scale coverage with Accu-Cheks q. 4 hours. - Diabetic foot ulcer. Continue current wound care. - Osteomyelitis of the distal phalanx of the great left toe. Completed treatment for antibiotics. Continue sequential compression device for deep venous thrombosis prophylaxis and Protonix for peptic ulcer disease prophylaxis. Further recommendations based on clinical course. Plan of care discussed with Dr. Heredia. Subjective 24 Hr Interval Summary Free Text/Dictation no bleeding noted around tracheostomy site, reassessment by ENT Dr. Nichols- plan to apply surgical glue. dw staff Subjective hx not possible: pt non-verbal, pt critical status Constitutional: requiring IVF, requiring O2 Exam/Review of Systems Vital Signs Vitals Vital Signs Date Time Temp Pulse Resp B/P Pulse Ox O2 Delivery O2 Flow Rate FiO2 02/03/17 09:30 99 18 100 35 02/03/17 08:00 98.2 106/52 Mechanical Ventilator Trach Collar Intake and Output 02/02/17 02/02/17 02/03/17 15:00 23:00 07:00 Intake Total 790 ml 290 ml 340 ml Output Total 3115 ml 50 ml 0 ml Balance -2325 ml 240 ml 340 ml Exam Constitutional: non-verbal Respiratory: diminished breath sounds Cardiovascular: nl pulses Gastrointestinal: non-tender, other (ngt noted- intact), soft Genitourinary - Male: other (FC intact - dark , yellow urine) Musculoskeletal: other Neurological: unresponsive Skin: other Results Result Diagram: 02/03/17 0545 02/03/17 0545 Results 24 hrs Laboratory Tests Test 02/02/17 18:21 02/02/17 18:53 02/02/17 20:45 02/03/17 01:29 Bedside Glucose 172 182 216 267 H Test 02/03/17 05:34 02/03/17 05:45 02/03/17 05:51 02/03/17 06:00 Lab Scanned Report BLOOD TRANSFUSION White Blood Count 14.4 H Red Blood Count 2.84 L Hemoglobin 8.5 L Hematocrit 25.4 L Mean Corpuscular Volume 89.4 Mean Corpuscular Hemoglobin 29.9 Mean Corpuscular Hemoglobin Concent 33.5 Red Cell Distribution Width 15.7 H Platelet Count 145 # Mean Platelet Volume 11.0 H Neutrophils % 84.1 H Lymphocytes % 8.5 L Monocytes % 6.5 Eosinophils % 0.1 Basophils % 0.1 Nucleated Red Blood Cells % 0.0 Neutrophils # 12.1 H Lymphocytes # 1.2 Monocytes # 0.9 Eosinophils # 0.0 Basophils # 0.0 Nucleated Red Blood Cells # 0.0 Sodium Level 137 Potassium Level 4.4 Chloride Level 98 Carbon Dioxide Level 29 Anion Gap 14 Blood Urea Nitrogen 47 #H Creatinine 1.71 H Glucose Level 190 Calcium Level 8.6 Bedside Glucose 196 Magnesium Level 2.6 H Test 02/03/17 09:03 Bedside Glucose 222 H Medications Medications Current Medications Ondansetron HCl (Zofran Inj) 4 mg Q6H PRN IV NAUSEA AND/OR VOMITING Last administered on 12/13/16 01:13; Admin Dose 4 MG; Start 12/02/16 at 22:30 Miscellaneous Information 1 ea NOTE XX ; Start 12/02/16 at 23:00 Glucose (Glutose) 15 gm Q15M PRN PO DECREASED GLUCOSE; Start 12/02/16 at 23:00 Glucose (Glutose) 22.5 gm Q15M PRN PO DECREASED GLUCOSE; Start 12/02/16 at 23: 00 Dextrose (D50w Syringe) 25 ml Q15M PRN IV DECREASED GLUCOSE Last administered on 01/26/17 05:21; Admin Dose 25 ML; Start 12/02/16 at 23:00 Dextrose (D50w Syringe) 50 ml Q15M PRN IV DECREASED GLUCOSE Last administered on 01/23/17 04:58; Admin Dose 50 ML; Start 12/02/16 at 23:00 Glucagon (Glucagen) 1 mg Q15M PRN IM DECREASED GLUCOSE; Start 12/02/16 at 23:00 Glucose (Glutose) 15 gm Q15M PRN BUCCAL DECREASED GLUCOSE; Start 12/02/16 at 23 :00 Gabapentin (Neurontin) 800 mg TID PO Last administered on 12/08/16 20:33; Admin Dose 800 MG; Start 12/03/16 at 09:00; Status Future Hold Benazepril HCl (Lotensin) 10 mg DAILY PO Last administered on 12/07/16 08:26; Admin Dose 10 MG; Start 12/04/16 at 09:00; Status Future Hold Acetaminophen (Tylenol Supp) 650 mg Q6H PRN [place] ELEVATED TEMPERATURE Last administered on 01/13/17 20:32; Admin Dose 650 MG; Start 12/09/16 at 17:00 Hydralazine HCl (Apresoline) 10 mg Q6H PRN IV SBP>150mm hg Last administered on 12/19/16 08:50; Admin Dose 10 MG; Start 12/11/16 at 10:30 Morphine Sulfate (morphine) 2 mg Q2H PRN IV PAIN LEVEL 4-7; Start 12/13/16 at 10 :00 Collagenase (Santyl) 1 applic DAILY TOP Last administered on 02/03/17 09:04; Admin Dose 1 APPLIC; Start 01/04/17 at 09:00 Metoprolol Tartrate (Lopressor) 5 mg Q4 PRN IV FOR H.R>110; Start 01/12/17 at 17:30 Acetaminophen (Tylenol Liquid) 650 mg Q6H PRN NGT PAIN AND [place] ELEVATED TEMP Last administered on 01/28/17 06:13; Admin Dose 650 MG; Start 01/13/17 at 23:30 Apixaban (Eliquis) 2.5 mg BID NGT Last administered on 01/30/17 08:18; Admin Dose 2.5 MG; Start 01/13/17 at 21:00; Status Future Hold Acetaminophen/ Hydrocodone Bitart ([place] (5/325)) 1 tab Q6H PRN NGT PAIN LEVEL 4-7; Start 01/13/17 at 23:30 Levetiracetam (Keppra Liquid) 1,000 mg DAILY NGT Last administered on 09:04; Admin Dose 1,000 MG; Start 01/14/17 at 09:00 Meclizine HCl (Antivert) 25 mg TID PRN NGT dizziness; Start 01/13/17 at 20:00 Zolpidem Tartrate (Ambien) 5 mg HS PRN NGT INSOMNIA; Start 01/13/17 at 20:00 Aspirin (Aspirin) 81 mg DAILY NGT Last administered on 01/30/17 08:18; Admin Dose 81 MG; Start 01/14/17 at 09:00; Status Future Hold Docusate Sodium (Colace Liquid Cup) 100 mg BID NGT Last administered on 09:04; Admin Dose 100 MG; Start 01/13/17 at 21:00 Pantoprazole (Protonix Iv) 40 mg DAILY@06 IV Last administered on 02/03/17 05: 45; Admin Dose 40 MG; Start 01/14/17 at 06:00 Amiodarone HCl (Cordarone) 200 mg Q8 NGT Last administered on 02/03/17 05:45; Admin Dose 200 MG; Start 01/17/17 at 14:00 Metoprolol Tartrate (Lopressor) 12.5 mg BID NGT Last administered on 02/03/17 09:07; Admin Dose 12.5 MG; Start 01/24/17 at 21:00 Insulin Aspart (Novolog Insulin Pen) NOVOLOG *MODERATE* [place]I... Q4 SC Last administered on 02/03/17 09:08; Admin Dose 6 UNIT; Start 01/25/17 at 13:00 Insulin Glargine (Lantus) 30 unit DAILY@20 SC Last administered on 02/02/17 20 :48; Admin Dose 30 UNIT; Start 01/26/17 at 20:00 Nystatin 5 ml 5 ml Q6 PO Last administered on 02/03/17 05:45; Admin Dose 5 ML ; Start 01/31/17 at 12:00 Norepinephrine 16 mg/Dextrose 500 ml @ 0 mls/hr TITRATE IV ; Start 02/01/17 at 07:00 Fluconazole/ Sodium Chloride 50 ml @ 50 mls/hr Q24H IVPB Last administered on 11:33; Admin Dose 50 MLS/HR; Start 02/02/17 at 11:00 Cefepime HCl (Maxipime 1gm/50 ml (Pmx)) 50 ml @ 100 mls/hr DAILY IVPB Last administered on 02/03/17 09:04; Admin Dose 100 MLS/HR; Start 02/02/17 at 11:00 YULIANA SIMMONS Feb 03, 2017 10:51
[2017-02-03] MEDS: ACETAMINOPHEN 650MG/20.3ML CUP NGT PRN (17:37)
--- NOTE | 2017-02-03 18:58 | CONS ---
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 Blood cultures from HD catheter on 12/13/2016 are negative to date. 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 MRI on 12/06/2016 and bone scan on showed 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 and left fourth proximal phalanx. superficial swab grew inna only - s/p right pleural effusion s/p thoracentesis with .9L removed on 12/16/2016 - severe , EF 40-45% per TTE 12/17/16 - DM - Hgb A1c 8.7% - HTN associated with DM Tracheostomy site bleeding Plan: Plan for HD tomorrow s/p Tracheostomy, on ventilator, plan for surgiseal at trach site by ENT pt will need HD palcement at a unit where they can do a HD for pt with tracheostomy and PEG tube placemen t pt has severe , very labile BP sometimes with HD will continue to follow up for HD need Consultation Date/Type/Reason Admit Date/Time Dec 02, 2016 at 21:01 Initial Consult Date Type of Consultation: NEPHROLOGY Referring Provider: VIET PARKER MD 24 HR Interval Summary Free Text/Dictation still having oozing at tracheostomy site, BP stable, afebrile Exam/Review of Systems Vital Signs Vitals Vital Signs Date Time Temp Pulse Resp B/P Pulse Ox O2 Delivery O2 Flow Rate FiO2 02/03/17 18:00 99.0 83 19 100/51 99 Mechanical Ventilator 02/03/17 17:20 35 Intake and Output 02/02/17 02/02/17 02/03/17 15:00 23:00 07:00 Intake Total 790 ml 290 ml 340 ml Output Total 3115 ml 50 ml 0 ml Balance -2325 ml 240 ml 340 ml Results Result Diagram: 02/03/17 0545 02/03/17 0545 Results 24 hrs Laboratory Tests Test 02/02/17 20:45 02/03/17 01:29 02/03/17 05:34 02/03/17 05:45 Bedside Glucose 216 267 H Lab Scanned Report BLOOD TRANSFUSION White Blood Count 14.4 H Red Blood Count 2.84 L Hemoglobin 8.5 L Hematocrit 25.4 L Mean Corpuscular Volume 89.4 Mean Corpuscular Hemoglobin 29.9 Mean Corpuscular Hemoglobin Concent 33.5 Red Cell Distribution Width 15.7 H Platelet Count 145 # Mean Platelet Volume 11.0 H Neutrophils % 84.1 H Lymphocytes % 8.5 L Monocytes % 6.5 Eosinophils % 0.1 Basophils % 0.1 Nucleated Red Blood Cells % 0.0 Neutrophils # 12.1 H Lymphocytes # 1.2 Monocytes # 0.9 Eosinophils # 0.0 Basophils # 0.0 Nucleated Red Blood Cells # 0.0 Sodium Level 137 Potassium Level 4.4 Chloride Level 98 Carbon Dioxide Level 29 Anion Gap 14 Blood Urea Nitrogen 47 #H Creatinine 1.71 H Glucose Level 190 Calcium Level 8.6 Test 02/03/17 05:51 02/03/17 06:00 02/03/17 09:03 02/03/17 12:52 Bedside Glucose 196 222 H 197 Magnesium Level 2.6 H Test 02/03/17 17:30 Bedside Glucose 232 H Medications Medications Current Medications Ondansetron HCl (Zofran Inj) 4 mg Q6H PRN IV NAUSEA AND/OR VOMITING Last administered on 12/13/16 01:13; Admin Dose 4 MG; Start 12/02/16 at 22:30 Miscellaneous Information 1 ea NOTE XX ; Start 12/02/16 at 23:00 Glucose (Glutose) 15 gm Q15M PRN PO DECREASED GLUCOSE; Start 12/02/16 at 23:00 Glucose (Glutose) 22.5 gm Q15M PRN PO DECREASED GLUCOSE; Start 12/02/16 at 23: 00 Dextrose (D50w Syringe) 25 ml Q15M PRN IV DECREASED GLUCOSE Last administered on 01/26/17 05:21; Admin Dose 25 ML; Start 12/02/16 at 23:00 Dextrose (D50w Syringe) 50 ml Q15M PRN IV DECREASED GLUCOSE Last administered on 01/23/17 04:58; Admin Dose 50 ML; Start 12/02/16 at 23:00 Glucagon (Glucagen) 1 mg Q15M PRN IM DECREASED GLUCOSE; Start 12/02/16 at 23:00 Glucose (Glutose) 15 gm Q15M PRN BUCCAL DECREASED GLUCOSE; Start 12/02/16 at 23 :00 Gabapentin (Neurontin) 800 mg TID PO Last administered on 12/08/16 20:33; Admin Dose 800 MG; Start 12/03/16 at 09:00; Status Future Hold Benazepril HCl (Lotensin) 10 mg DAILY PO Last administered on 12/07/16 08:26; Admin Dose 10 MG; Start 12/04/16 at 09:00; Status Future Hold Acetaminophen (Tylenol Supp) 650 mg Q6H PRN [place] ELEVATED TEMPERATURE Last administered on 01/13/17 20:32; Admin Dose 650 MG; Start 12/09/16 at 17:00 Hydralazine HCl (Apresoline) 10 mg Q6H PRN IV SBP>150mm hg Last administered on 12/19/16 08:50; Admin Dose 10 MG; Start 12/11/16 at 10:30 Morphine Sulfate (morphine) 2 mg Q2H PRN IV PAIN LEVEL 4-7; Start 12/13/16 at 10 :00 Collagenase (Santyl) 1 applic DAILY TOP Last administered on 02/03/17 09:04; Admin Dose 1 APPLIC; Start 01/04/17 at 09:00 Metoprolol Tartrate (Lopressor) 5 mg Q4 PRN IV FOR H.R>110; Start 01/12/17 at 17:30 Acetaminophen (Tylenol Liquid) 650 mg Q6H PRN NGT PAIN AND [place] ELEVATED TEMP Last administered on 02/03/17 17:37; Admin Dose 650 MG; Start 01/13/17 at 23:30 Apixaban (Eliquis) 2.5 mg BID NGT Last administered on 01/30/17 08:18; Admin Dose 2.5 MG; Start 01/13/17 at 21:00; Status Future Hold Acetaminophen/ Hydrocodone Bitart ([place] (5/325)) 1 tab Q6H PRN NGT PAIN LEVEL 4-7; Start 01/13/17 at 23:30 Levetiracetam (Keppra Liquid) 1,000 mg DAILY NGT Last administered on 09:04; Admin Dose 1,000 MG; Start 01/14/17 at 09:00 Meclizine HCl (Antivert) 25 mg TID PRN NGT dizziness; Start 01/13/17 at 20:00 Zolpidem Tartrate (Ambien) 5 mg HS PRN NGT INSOMNIA; Start 01/13/17 at 20:00 Aspirin (Aspirin) 81 mg DAILY NGT Last administered on 01/30/17 08:18; Admin Dose 81 MG; Start 01/14/17 at 09:00; Status Future Hold Docusate Sodium (Colace Liquid Cup) 100 mg BID NGT Last administered on 09:04; Admin Dose 100 MG; Start 01/13/17 at 21:00 Pantoprazole (Protonix Iv) 40 mg DAILY@06 IV Last administered on 02/03/17 05: 45; Admin Dose 40 MG; Start 01/14/17 at 06:00 Amiodarone HCl (Cordarone) 200 mg Q8 NGT Last administered on 02/03/17 15:22; Admin Dose 200 MG; Start 01/17/17 at 14:00 Metoprolol Tartrate (Lopressor) 12.5 mg BID NGT Last administered on 02/03/17 09:07; Admin Dose 12.5 MG; Start 01/24/17 at 21:00 Insulin Aspart (Novolog Insulin Pen) NOVOLOG *MODERATE* [place]... Q4 SC Last administered on 02/03/17 17:36; Admin Dose 6 UNIT; Start 01/25/17 at 13:00 Insulin Glargine (Lantus) 30 unit DAILY@20 SC Last administered on 02/02/17 20 :48; Admin Dose 30 UNIT; Start 01/26/17 at 20:00 Nystatin 5 ml 5 ml Q6 PO Last administered on 02/03/17 17:36; Admin Dose 5 ML ; Start 01/31/17 at 12:00 Norepinephrine 16 mg/Dextrose 500 ml @ 0 mls/hr TITRATE IV ; Start 02/01/17 at 07:00 Fluconazole/ Sodium Chloride 50 ml @ 50 mls/hr Q24H IVPB Last administered on 11:41; Admin Dose 50 MLS/HR; Start 02/02/17 at 11:00 Cefepime HCl (Maxipime 1gm/50 ml (Pmx)) 50 ml @ 100 mls/hr DAILY IVPB Last administered on 02/03/17 09:04; Admin Dose 100 MLS/HR; Start 02/02/17 at 11:00 TASHIA MCGARRY MD Feb 03, 2017 18:58
[2017-02-03] MEDS: INSULIN GLARGINE [LANtus] 3 ML PEN SC SCH (20:17)
[2017-02-04] VITALS (48 sets, daily range): BP systolic 83–137; BP diastolic 46–80; PULSE 68–126; RESP 5–24
[2017-02-04] MEDS: NYSTATIN SUSP 5 ML CUP PO SCH ×4 (00:44→17:54)
[2017-02-04] MEDS: INSULIN ASPART [NOVOLOG] 3 ML PEN SC SCH ×6 (00:44→21:16)
[2017-02-04] MEDS: ALBUTEROL 18 GM INHALER INH SCH ×4 (01:15→19:05)
[2017-02-04] MEDS: PANTOPRAZOLE 40 MG INJ IV SCH (05:20)
[2017-02-04] MEDS: AMIODARONE 200 MG TAB NGT SCH ×3 (05:22→21:13)
[2017-02-04 07:26] LABS: ADD SCAN DIFF NO
[2017-02-04 07:37] LABS: BASOPHILS % 0.1 % (0.0-2.0); EOSINOPHILS % 0.2 % (0.0-7.0); HEMATOCRIT 23.8 % (42.0-52.0); HEMOGLOBIN 7.7 g/dl (14.0-18.0); LYMPHOCYTES # 0.9 10^3/ul (0.8-2.9); LYMPHOCYTES % 7.3 % (15.0-51.0); MEAN CORPUSCULAR HEMOGLOBIN 29.4 pg (29.0-33.0); MEAN CORPUSCULAR HGB CONC 32.4 g/dl (32.0-37.0); MEAN CORPUSCULAR VOLUME 90.8 fl (82.0-101.0); MONOCYTE # 0.8 10^3/ul (0.3-0.9); MONOCYTES % 6.1 % (0.0-11.0); NEUTROPHIL # 10.7 10^3/ul (1.6-7.5); NEUTROPHILS % 85.8 % (39.0-77.0); PLATELET COUNT 172 10^3/UL (140-415); RED BLOOD COUNT 2.62 10^6/ul (4.70-6.10); RED CELL DISTRIBUTION WIDTH 15.9 % (11.5-14.5); WHITE BLOOD COUNT 12.5 10^3/ul (4.8-10.8)
[2017-02-04 08:07] LABS: CALCIUM 8.5 mg/dl (8.4-10.2); CREATININE 2.22 mg/dl (0.61-1.24); POTASSIUM 4.2 mmol/L (3.5-5.1)
[2017-02-04] MEDS: DOCUSATE SODIUM 10 MG/ML (10ML CUP) NGT SCH ×2 (08:46→21:13)
[2017-02-04] MEDS: METOPROLOL 25 MG TAB NGT SCH ×2 (08:46→21:13)
[2017-02-04] MEDS: LEVETIRACETAM (100 MG/ML) 5ML CUP NGT SCH (08:46)
[2017-02-04] MEDS: CEFEPIME 1GM/50 ML (PMX) 50 ML IVPB SCH (08:46)
[2017-02-04] MEDS: COLLAGENASE 30 GM TUBE TOP SCH (08:47)
[2017-02-04] MEDS: TOBRAMYCIN/0.25NS 300 MG/5 ML INHAL NEB SCH ×2 (09:02→19:05)
--- NOTE | 2017-02-04 09:41 | CONS ---
Date/Time of Note Date/Time of Note DATE: 02/04/17 TIME: 09:39 Assessment/Plan Assessment/Plan Additional Assessment/Plan 1. Atrial fibrillation-Having episodes of PAF with reasonable rate control - well Rx now - stable 2. Hypotension-borderline and labile - stable 3. Abnormal electrocardiogram with inferolateral T-wave inversions. 4. Respiratory failure-s/p trach placement - CT scan now 5. Nonhealing toe ulceration-vascular following - skin care in place 6. Peripheral arterial disease by arterial ultrasound of the lower extremities this admission. 7. Diabetes mellitus - keep euglycemic. 8. Fevers- on anti-bx - no acute change 9. Positive troponin-downtrended 10.Bradycardia-improved/stable 11.-severe by echo 12.Cardiomyopathy-EF 40-45% by echo/36% by stress with no ischemia but positive scar. EF <30% by echo post arrest 14.Encephalopathy-anoxic 15. s/p cardiopulmonary arrest 01/08 Consultation Date/Type/Reason Admit Date/Time Dec 02, 2016 at 21:01 Initial Consult Date 12/03/16 Type of Consultation: NEPHROLOGY Referring Provider: VIET PARKER MD 24 HR Interval Summary Free Text/Dictation NO acute change - hemodynamically stable - poor prognosis overall ROS: No fever, no chills, no nausea, no vomiting, no diarrhea/constipation No recent weight changes No chest pain, no PND, no orthopnea No dizziness, blurred vision No thirst, no heat or cold intolerance (per nurse) Exam/Review of Systems Vital Signs Vitals Vital Signs Date Time Temp Pulse Resp B/P Pulse Ox O2 Delivery O2 Flow Rate FiO2 02/04/17 07:40 75 17 100 30 02/04/17 06:00 113/51 02/04/17 04:00 98.8 02/03/17 18:00 Mechanical Ventilator Intake and Output 02/03/17 02/03/17 02/04/17 15:00 23:00 07:00 Intake Total 300 ml 860 ml Output Total 15 ml 350 ml Balance 285 ml 510 ml Exam General: WN/WD/NAD, AOx 0 HEENT: Unicetric/atraumatic/EOMI (does not follow commands) NECK: trach Lymph: no lymphadenopathy HEART: regular with no S3, II/ systolic murmur at apex LUNGS: Coarse sounds ABD: soft, NT, ND, +BS : Intact Neuro: non focal SKIN: chronic changes EXT: trace edema Results Result Diagram: 02/04/17 0550 02/04/17 0550 Results 24 hrs Laboratory Tests Test 02/03/17 12:52 02/03/17 17:30 02/03/17 20:07 02/04/17 00:42 Bedside Glucose 197 232 H 265 H 241 H Test 02/04/17 05:24 02/04/17 05:50 02/04/17 08:55 Bedside Glucose 226 H 221 H White Blood Count 12.5 H Red Blood Count 2.62 L Hemoglobin 7.7 L Hematocrit 23.8 L Mean Corpuscular Volume 90.8 Mean Corpuscular Hemoglobin 29.4 Mean Corpuscular Hemoglobin Concent 32.4 Red Cell Distribution Width 15.9 H Platelet Count 172 Mean Platelet Volume 11.0 H Neutrophils % 85.8 H Lymphocytes % 7.3 L Monocytes % 6.1 Eosinophils % 0.2 Basophils % 0.1 Nucleated Red Blood Cells % 0.0 Neutrophils # 10.7 H Lymphocytes # 0.9 Monocytes # 0.8 Eosinophils # 0.0 Basophils # 0.0 Nucleated Red Blood Cells # 0.0 Sodium Level 140 Potassium Level 4.2 Chloride Level 98 Carbon Dioxide Level 28 Anion Gap 18 H Blood Urea Nitrogen 68 H Creatinine 2.22 H Glucose Level 234 H Calcium Level 8.5 Medications Medications Current Medications Ondansetron HCl (Zofran Inj) 4 mg Q6H PRN IV NAUSEA AND/OR VOMITING Last administered on 12/13/16 01:13; Admin Dose 4 MG; Start 12/02/16 at 22:30 Miscellaneous Information 1 ea NOTE XX ; Start 12/02/16 at 23:00 Glucose (Glutose) 15 gm Q15M PRN PO DECREASED GLUCOSE; Start 12/02/16 at 23:00 Glucose (Glutose) 22.5 gm Q15M PRN PO DECREASED GLUCOSE; Start 12/02/16 at 23: 00 Dextrose (D50w Syringe) 25 ml Q15M PRN IV DECREASED GLUCOSE Last administered on 01/26/17 05:21; Admin Dose 25 ML; Start 12/02/16 at 23:00 Dextrose (D50w Syringe) 50 ml Q15M PRN IV DECREASED GLUCOSE Last administered on 01/23/17 04:58; Admin Dose 50 ML; Start 12/02/16 at 23:00 Glucagon (Glucagen) 1 mg Q15M PRN IM DECREASED GLUCOSE; Start 12/02/16 at 23:00 Glucose (Glutose) 15 gm Q15M PRN BUCCAL DECREASED GLUCOSE; Start 12/02/16 at 23 :00 Gabapentin (Neurontin) 800 mg TID PO Last administered on 12/08/16 20:33; Admin Dose 800 MG; Start 12/03/16 at 09:00; Status Future Hold Benazepril HCl (Lotensin) 10 mg DAILY PO Last administered on 12/07/16 08:26; Admin Dose 10 MG; Start 12/04/16 at 09:00; Status Future Hold Acetaminophen (Tylenol Supp) 650 mg Q6H PRN [place] ELEVATED TEMPERATURE Last administered on 01/13/17 20:32; Admin Dose 650 MG; Start 12/09/16 at 17:00 Hydralazine HCl (Apresoline) 10 mg Q6H PRN IV SBP>150mm hg Last administered on 12/19/16 08:50; Admin Dose 10 MG; Start 12/11/16 at 10:30 Morphine Sulfate (morphine) 2 mg Q2H PRN IV PAIN LEVEL 4-7; Start 12/13/16 at 10 :00 Collagenase (Santyl) 1 applic DAILY TOP Last administered on 02/04/17 08:47; Admin Dose 1 APPLIC; Start 01/04/17 at 09:00 Metoprolol Tartrate (Lopressor) 5 mg Q4 PRN IV FOR H.R>110; Start 01/12/17 at 17:30 Acetaminophen (Tylenol Liquid) 650 mg Q6H PRN NGT PAIN AND [place] ELEVATED TEMP Last administered on 02/03/17 17:37; Admin Dose 650 MG; Start 01/13/17 at 23:30 Apixaban (Eliquis) 2.5 mg BID NGT Last administered on 01/30/17 08:18; Admin Dose 2.5 MG; Start 01/13/17 at 21:00; Status Future Hold Acetaminophen/ Hydrocodone Bitart ([place] (5/325)) 1 tab Q6H PRN NGT PAIN LEVEL 4-7; Start 01/13/17 at 23:30 Levetiracetam (Keppra Liquid) 1,000 mg DAILY NGT Last administered on 08:46; Admin Dose 1,000 MG; Start 01/14/17 at 09:00 Meclizine HCl (Antivert) 25 mg TID PRN NGT dizziness; Start 01/13/17 at 20:00 Zolpidem Tartrate (Ambien) 5 mg HS PRN NGT INSOMNIA; Start 01/13/17 at 20:00 Aspirin (Aspirin) 81 mg DAILY NGT Last administered on 01/30/17 08:18; Admin Dose 81 MG; Start 01/14/17 at 09:00; Status Future Hold Docusate Sodium (Colace Liquid Cup) 100 mg BID NGT Last administered on 08:46; Admin Dose 100 MG; Start 01/13/17 at 21:00 Pantoprazole (Protonix Iv) 40 mg DAILY@06 IV Last administered on 02/04/17 05: 20; Admin Dose 40 MG; Start 01/14/17 at 06:00 Amiodarone HCl (Cordarone) 200 mg Q8 NGT Last administered on 02/04/17 05:22; Admin Dose 200 MG; Start 01/17/17 at 14:00 Metoprolol Tartrate (Lopressor) 12.5 mg BID NGT Last administered on 02/04/17 08:46; Admin Dose 12.5 MG; Start 01/24/17 at 21:00 Insulin Aspart (Novolog Insulin Pen) NOVOLOG *MODERATE* ALGORI... Q4 SC Last administered on 02/04/17 08:57; Admin Dose 6 UNIT; Start 01/25/17 at 13:00 Insulin Glargine (Lantus) 30 unit DAILY@20 SC Last administered on 02/03/17 20 :17; Admin Dose 30 UNIT; Start 01/26/17 at 20:00 Nystatin 5 ml 5 ml Q6 PO Last administered on 02/04/17 05:20; Admin Dose 5 ML ; Start 01/31/17 at 12:00 Norepinephrine 16 mg/Dextrose 500 ml @ 0 mls/hr TITRATE IV ; Start 02/01/17 at 07:00 Fluconazole/ Sodium Chloride 50 ml @ 50 mls/hr Q24H IVPB Last administered on 11:41; Admin Dose 50 MLS/HR; Start 02/02/17 at 11:00 Cefepime HCl (Maxipime 1gm/50 ml (Pmx)) 50 ml @ 100 mls/hr DAILY IVPB Last administered on 02/04/17 08:46; Admin Dose 100 MLS/HR; Start 02/02/17 at 11:00 DAVE NICOLE MD Feb 04, 2017 09:40
--- NOTE | 2017-02-04 10:14 | CONS ---
Date/Time of Note Date/Time of Note DATE: 02/04/17 TIME: 10:10 Assessment/Plan Assessment/Plan Additional Assessment/Plan Ventilator setting; AC of 16, tidal volume 500, PEEP of 5, 30% FiO2. Assessment recommendations; 1. Patient admitted for respiratory failure after development of flash pulmonary edema from underlying cardiomyopathy, status post CPR with ensuing severe anoxic brain injury. Status post tracheostomy. 2. Tracheostomy insertion site bleed with interval improvement. 3. Anemia. 4. Recent toe osteomyelitis. Patient is off antibiotics now. 5. Chronic renal failure, on hemodialysis. Continue current treatment. Prognosis is extremely poor. Patient awaiting G- tube placement. Consultation Date/Type/Reason Admit Date/Time Dec 02, 2016 at 21:01 Initial Consult Date 12/03/16 Type of Consultation: Pulmonary/critical care Referring Provider: VIET PARKER MD 24 HR Interval Summary Free Text/Dictation Patient's condition remains stable. No further bleeding around tracheostomy noted. Patient has remained hemodynamically stable. General exam; elderly male, on ventilator via tracheostomy. Currently in no distress. Unresponsive. Exam/Review of Systems Vital Signs Vitals Vital Signs Date Time Temp Pulse Resp B/P Pulse Ox O2 Delivery O2 Flow Rate FiO2 02/04/17 07:40 75 17 100 30 02/04/17 06:00 113/51 02/04/17 04:00 98.8 02/03/17 18:00 Mechanical Ventilator Intake and Output 02/03/17 02/03/17 02/04/17 15:00 23:00 07:00 Intake Total 300 ml 860 ml Output Total 15 ml 350 ml Balance 285 ml 510 ml Exam HEENT exam; supple neck, no JVD. No lymphadenopathy. Midline trachea. No thyromegaly. Tracheostomy in place. There is significant crusting of blood around the insertion site. No active bleeding seen. Patient is edentulous. Chest examination; clear to auscultation. S1-S2 audible, no murmurs. Regular rhythm. Abdomen examination; soft, no organomegaly. Bowel sounds audible. Extremity exam; no peripheral edema. [employer] examination; patient remains unresponsive. Results Result Diagram: 02/04/17 0550 02/04/17 0550 Results 24 hrs Laboratory Tests Test 02/03/17 12:52 02/03/17 17:30 02/03/17 20:07 02/04/17 00:42 Bedside Glucose 197 232 H 265 H 241 H Test 02/04/17 05:24 02/04/17 05:50 02/04/17 08:55 Bedside Glucose 226 H 221 H White Blood Count 12.5 H Red Blood Count 2.62 L Hemoglobin 7.7 L Hematocrit 23.8 L Mean Corpuscular Volume 90.8 Mean Corpuscular Hemoglobin 29.4 Mean Corpuscular Hemoglobin Concent 32.4 Red Cell Distribution Width 15.9 H Platelet Count 172 Mean Platelet Volume 11.0 H Neutrophils % 85.8 H Lymphocytes % 7.3 L Monocytes % 6.1 Eosinophils % 0.2 Basophils % 0.1 Nucleated Red Blood Cells % 0.0 Neutrophils # 10.7 H Lymphocytes # 0.9 Monocytes # 0.8 Eosinophils # 0.0 Basophils # 0.0 Nucleated Red Blood Cells # 0.0 Sodium Level 140 Potassium Level 4.2 Chloride Level 98 Carbon Dioxide Level 28 Anion Gap 18 H Blood Urea Nitrogen 68 H Creatinine 2.22 H Glucose Level 234 H Calcium Level 8.5 Medications Medications Current Medications Ondansetron HCl (Zofran Inj) 4 mg Q6H PRN IV NAUSEA AND/OR VOMITING Last administered on 12/13/16 01:13; Admin Dose 4 MG; Start 12/02/16 at 22:30 Miscellaneous Information 1 ea NOTE XX ; Start 12/02/16 at 23:00 Glucose (Glutose) 15 gm Q15M PRN PO DECREASED GLUCOSE; Start 12/02/16 at 23:00 Glucose (Glutose) 22.5 gm Q15M PRN PO DECREASED GLUCOSE; Start 12/02/16 at 23: 00 Dextrose (D50w Syringe) 25 ml Q15M PRN IV DECREASED GLUCOSE Last administered on 01/26/17 05:21; Admin Dose 25 ML; Start 12/02/16 at 23:00 Dextrose (D50w Syringe) 50 ml Q15M PRN IV DECREASED GLUCOSE Last administered on 01/23/17 04:58; Admin Dose 50 ML; Start 12/02/16 at 23:00 Glucagon (Glucagen) 1 mg Q15M PRN IM DECREASED GLUCOSE; Start 12/02/16 at 23:00 Glucose (Glutose) 15 gm Q15M PRN BUCCAL DECREASED GLUCOSE; Start 12/02/16 at 23 :00 Gabapentin (Neurontin) 800 mg TID PO Last administered on 12/08/16 20:33; Admin Dose 800 MG; Start 12/03/16 at 09:00; Status Future Hold Benazepril HCl (Lotensin) 10 mg DAILY PO Last administered on 12/07/16 08:26; Admin Dose 10 MG; Start 12/04/16 at 09:00; Status Future Hold Acetaminophen (Tylenol Supp) 650 mg Q6H PRN [place] ELEVATED TEMPERATURE Last administered on 01/13/17 20:32; Admin Dose 650 MG; Start 12/09/16 at 17:00 Hydralazine HCl (Apresoline) 10 mg Q6H PRN IV SBP>150mm hg Last administered on 12/19/16 08:50; Admin Dose 10 MG; Start 12/11/16 at 10:30 Morphine Sulfate (morphine) 2 mg Q2H PRN IV PAIN LEVEL 4-7; Start 12/13/16 at 10 :00 Collagenase (Santyl) 1 applic DAILY TOP Last administered on 02/04/17 08:47; Admin Dose 1 APPLIC; Start 01/04/17 at 09:00 Metoprolol Tartrate (Lopressor) 5 mg Q4 PRN IV FOR H.R>110; Start 01/12/17 at 17:30 Acetaminophen (Tylenol Liquid) 650 mg Q6H PRN NGT PAIN AND OR ELEVATED TEMP Last administered on 02/03/17 17:37; Admin Dose 650 MG; Start 01/13/17 at 23:30 Apixaban (Eliquis) 2.5 mg BID NGT Last administered on 01/30/17 08:18; Admin Dose 2.5 MG; Start 01/13/17 at 21:00; Status Future Hold Acetaminophen/ Hydrocodone Bitart ([place] (5/325)) 1 tab Q6H PRN NGT PAIN LEVEL 4-7; Start 01/13/17 at 23:30 Levetiracetam (Keppra Liquid) 1,000 mg DAILY NGT Last administered on 08:46; Admin Dose 1,000 MG; Start 01/14/17 at 09:00 Meclizine HCl (Antivert) 25 mg TID PRN NGT dizziness; Start 01/13/17 at 20:00 Zolpidem Tartrate (Ambien) 5 mg HS PRN NGT INSOMNIA; Start 01/13/17 at 20:00 Aspirin (Aspirin) 81 mg DAILY NGT Last administered on 01/30/17 08:18; Admin Dose 81 MG; Start 01/14/17 at 09:00; Status Future Hold Docusate Sodium (Colace Liquid Cup) 100 mg BID NGT Last administered on 08:46; Admin Dose 100 MG; Start 01/13/17 at 21:00 Pantoprazole (Protonix Iv) 40 mg DAILY@06 IV Last administered on 02/04/17 05: 20; Admin Dose 40 MG; Start 01/14/17 at 06:00 Amiodarone HCl (Cordarone) 200 mg Q8 NGT Last administered on 02/04/17 05:22; Admin Dose 200 MG; Start 01/17/17 at 14:00 Metoprolol Tartrate (Lopressor) 12.5 mg BID NGT Last administered on 02/04/17 08:46; Admin Dose 12.5 MG; Start 01/24/17 at 21:00 Insulin Aspart (Novolog Insulin Pen) NOVOLOG *MODERATE* ALGORI... Q4 SC Last administered on 02/04/17 08:57; Admin Dose 6 UNIT; Start 01/25/17 at 13:00 Insulin Glargine (Lantus) 30 unit DAILY@20 SC Last administered on 02/03/17 20 :17; Admin Dose 30 UNIT; Start 01/26/17 at 20:00 Nystatin 5 ml 5 ml Q6 PO Last administered on 02/04/17 05:20; Admin Dose 5 ML ; Start 01/31/17 at 12:00 Norepinephrine 16 mg/Dextrose 500 ml @ 0 mls/hr TITRATE IV ; Start 02/01/17 at 07:00 Fluconazole/ Sodium Chloride 50 ml @ 50 mls/hr Q24H IVPB Last administered on 11:41; Admin Dose 50 MLS/HR; Start 02/02/17 at 11:00 Cefepime HCl (Maxipime 1gm/50 ml (Pmx)) 50 ml @ 100 mls/hr DAILY IVPB Last administered on 02/04/17 08:46; Admin Dose 100 MLS/HR; Start 02/02/17 at 11:00 QARNI,IKE Feb 04, 2017 10:14
[2017-02-04] MEDS: FLUCONAZOLE 100 MG/NS (PMX) 50 ML IVPB SCH (10:49)
--- NOTE | 2017-02-04 12:16 | PN ---
Date/Time of Note Date/Time of Note DATE: 02/04/17 TIME: 12:09 Assessment/Plan VTE Prophylaxis VTE Prophylaxis Intervention: SCD's Lines/Catheters IV Catheter Type (from Nrs): PERMACATH Assessment/Plan Chief Complaint/Hosp Course No more bleeding from tracheostomy site patient awaits tracheostomy dressing change with surgery seal which is at the bedside Dr. Nichols is aware per nursing staff, patient is currently undergoing dialysis, patient has blood sugar above 200 will adjust Lantus, hemoglobin is 7.7, will recheck hemoglobin and hematocrit after dialysis transfuse if below 8. ASSESSMENT AND PLAN: - Possible recurrent sepsis, continue antibiotics per ID Dr. Rollins is following infection disease consultation. Patient is currently on cefepime IV and tobramycin inhalation for Pseudomonas in sputum. - Anemia of blood loss. Continue to monitor H&H, transfuse as needed. - Status post cardiopulmonary arrest on 12/09/2016 and 01/08/2017. Continue ventilatory support. - Anoxic encephalopathy. Continue Keppra. - Status post tracheostomy on 01/23/2017. - Dysphagia. The patient is pending G-tube placement. - End-stage renal disease. Continue hemodialysis per nephrology. - Paroxysmal atrial fibrillation. Eliquis is currently held due to bleeding. - Diabetes mellitus type 2. Continue Lantus and NovoLog with sliding scale coverage with Accu-Cheks q. 4 hours. - Diabetic foot ulcer. Continue current wound care. - Osteomyelitis of the distal phalanx of the great left toe. Completed treatment for antibiotics. Continue sequential compression device for deep venous thrombosis prophylaxis and Protonix for peptic ulcer disease prophylaxis. Further recommendations based on clinical course. Plan of care discussed with Dr. Heredia. Problems: Exam/Review of Systems Vital Signs Vitals Vital Signs Date Time Temp Pulse Resp B/P Pulse Ox O2 Delivery O2 Flow Rate FiO2 02/04/17 11:51 75 02/04/17 10:55 22 02/04/17 10:00 120/55 100 Mechanical Ventilator Trach Collar 02/04/17 10:00 30 02/04/17 08:00 98.2 Intake and Output 02/03/17 02/03/17 02/04/17 15:00 23:00 07:00 Intake Total 300 ml 860 ml Output Total 15 ml 350 ml Balance 285 ml 510 ml Exam Constitutional: non-verbal Head: atraumatic, normocephalic ENMT: other (Nasogastric tube) Neck: other (Tracheostomy), supple Respiratory: diminished breath sounds Cardiovascular: nl pulses Gastrointestinal: non-tender, soft Neurological: unresponsive Results Result Diagram: 02/04/17 0550 02/04/17 0550 Results 24 hrs Laboratory Tests Test 02/03/17 12:52 02/03/17 17:30 02/03/17 20:07 02/04/17 00:42 Bedside Glucose 197 232 H 265 H 241 H Test 02/04/17 05:24 02/04/17 05:50 02/04/17 08:55 Bedside Glucose 226 H 221 H White Blood Count 12.5 H Red Blood Count 2.62 L Hemoglobin 7.7 L Hematocrit 23.8 L Mean Corpuscular Volume 90.8 Mean Corpuscular Hemoglobin 29.4 Mean Corpuscular Hemoglobin Concent 32.4 Red Cell Distribution Width 15.9 H Platelet Count 172 Mean Platelet Volume 11.0 H Neutrophils % 85.8 H Lymphocytes % 7.3 L Monocytes % 6.1 Eosinophils % 0.2 Basophils % 0.1 Nucleated Red Blood Cells % 0.0 Neutrophils # 10.7 H Lymphocytes # 0.9 Monocytes # 0.8 Eosinophils # 0.0 Basophils # 0.0 Nucleated Red Blood Cells # 0.0 Sodium Level 140 Potassium Level 4.2 Chloride Level 98 Carbon Dioxide Level 28 Anion Gap 18 H Blood Urea Nitrogen 68 H Creatinine 2.22 H Glucose Level 234 H Calcium Level 8.5 Medications Medications Current Medications Ondansetron HCl (Zofran Inj) 4 mg Q6H PRN IV NAUSEA AND/OR VOMITING Last administered on 12/13/16 01:13; Admin Dose 4 MG; Start 12/02/16 at 22:30 Miscellaneous Information 1 ea NOTE XX ; Start 12/02/16 at 23:00 Glucose (Glutose) 15 gm Q15M PRN PO DECREASED GLUCOSE; Start 12/02/16 at 23:00 Glucose (Glutose) 22.5 gm Q15M PRN PO DECREASED GLUCOSE; Start 12/02/16 at 23: 00 Dextrose (D50w Syringe) 25 ml Q15M PRN IV DECREASED GLUCOSE Last administered on 01/26/17 05:21; Admin Dose 25 ML; Start 12/02/16 at 23:00 Dextrose (D50w Syringe) 50 ml Q15M PRN IV DECREASED GLUCOSE Last administered on 01/23/17 04:58; Admin Dose 50 ML; Start 12/02/16 at 23:00 Glucagon (Glucagen) 1 mg Q15M PRN IM DECREASED GLUCOSE; Start 12/02/16 at 23:00 Glucose (Glutose) 15 gm Q15M PRN BUCCAL DECREASED GLUCOSE; Start 12/02/16 at 23 :00 Gabapentin (Neurontin) 800 mg TID PO Last administered on 12/08/16 20:33; Admin Dose 800 MG; Start 12/03/16 at 09:00; Status Future Hold Benazepril HCl (Lotensin) 10 mg DAILY PO Last administered on 12/07/16 08:26; Admin Dose 10 MG; Start 12/04/16 at 09:00; Status Future Hold Acetaminophen (Tylenol Supp) 650 mg Q6H PRN [place] ELEVATED TEMPERATURE Last administered on 01/13/17 20:32; Admin Dose 650 MG; Start 12/09/16 at 17:00 Hydralazine HCl (Apresoline) 10 mg Q6H PRN IV SBP>150mm hg Last administered on 12/19/16 08:50; Admin Dose 10 MG; Start 12/11/16 at 10:30 Morphine Sulfate (morphine) 2 mg Q2H PRN IV PAIN LEVEL 4-7; Start 12/13/16 at 10 :00 Collagenase (Santyl) 1 applic DAILY TOP Last administered on 02/04/17 08:47; Admin Dose 1 APPLIC; Start 01/04/17 at 09:00 Metoprolol Tartrate (Lopressor) 5 mg Q4 PRN IV FOR H.R>110; Start 01/12/17 at 17:30 Acetaminophen (Tylenol Liquid) 650 mg Q6H PRN NGT PAIN AND OR ELEVATED TEMP Last administered on 02/03/17 17:37; Admin Dose 650 MG; Start 01/13/17 at 23:30 Apixaban (Eliquis) 2.5 mg BID NGT Last administered on 01/30/17 08:18; Admin Dose 2.5 MG; Start 01/13/17 at 21:00; Status Future Hold Acetaminophen/ Hydrocodone Bitart ([place] (5/325)) 1 tab Q6H PRN NGT PAIN LEVEL 4-7; Start 01/13/17 at 23:30 Levetiracetam (Keppra Liquid) 1,000 mg DAILY NGT Last administered on 08:46; Admin Dose 1,000 MG; Start 01/14/17 at 09:00 Meclizine HCl (Antivert) 25 mg TID PRN NGT dizziness; Start 01/13/17 at 20:00 Zolpidem Tartrate (Ambien) 5 mg HS PRN NGT INSOMNIA; Start 01/13/17 at 20:00 Aspirin (Aspirin) 81 mg DAILY NGT Last administered on 01/30/17 08:18; Admin Dose 81 MG; Start 01/14/17 at 09:00; Status Future Hold Docusate Sodium (Colace Liquid Cup) 100 mg BID NGT Last administered on 08:46; Admin Dose 100 MG; Start 01/13/17 at 21:00 Pantoprazole (Protonix Iv) 40 mg DAILY@06 IV Last administered on 02/04/17 05: 20; Admin Dose 40 MG; Start 01/14/17 at 06:00 Amiodarone HCl (Cordarone) 200 mg Q8 NGT Last administered on 02/04/17 05:22; Admin Dose 200 MG; Start 01/17/17 at 14:00 Metoprolol Tartrate (Lopressor) 12.5 mg BID NGT Last administered on 02/04/17 08:46; Admin Dose 12.5 MG; Start 01/24/17 at 21:00 Insulin Aspart (Novolog Insulin Pen) NOVOLOG *MODERATE* ALGORI... Q4 SC Last administered on 02/04/17 08:57; Admin Dose 6 UNIT; Start 01/25/17 at 13:00 Insulin Glargine (Lantus) 30 unit DAILY@20 SC Last administered on 02/03/17 20 :17; Admin Dose 30 UNIT; Start 01/26/17 at 20:00 Nystatin 5 ml 5 ml Q6 PO Last administered on 02/04/17 05:20; Admin Dose 5 ML ; Start 01/31/17 at 12:00 Norepinephrine 16 mg/Dextrose 500 ml @ 0 mls/hr TITRATE IV ; Start 02/01/17 at 07:00 Fluconazole/ Sodium Chloride 50 ml @ 50 mls/hr Q24H IVPB Last administered on 10:49; Admin Dose 50 MLS/HR; Start 02/02/17 at 11:00 Cefepime HCl (Maxipime 1gm/50 ml (Pmx)) 50 ml @ 100 mls/hr DAILY IVPB Last administered on 02/04/17 08:46; Admin Dose 100 MLS/HR; Start 02/02/17 at 11:00 KIMBERLY NOYOLA Feb 04, 2017 12:16
--- NOTE | 2017-02-04 15:48 | CONS ---
Date/Time of Note Date/Time of Note DATE: 02/04/17 TIME: 15:46 Assessment/Plan Assessment/Plan Chief Complaint/Hosp Course - possible recurrent sepsis - recurrent cardiopulmonary arrest on 12/09/2016 and on 01/08/2017 - s/p sepsis due to possible tracheobronchitis/pneumonia - recurrent tracheobronchitis/pneumonia due to pseudomonas - thrush, refractory to nystatin - funguria - bleeding from trach site - s/p recurrent sepsis - 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 Blood cultures from HD catheter on 12/13/2016 are negative to date. 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 MRI on 12/06/2016 and bone scan on showed 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 and left fourth proximal phalanx. superficial swab grew inna only. At present, no e/o persistent infection - recurrent pleural effusion - s/p right pleural effusion s/p thoracentesis with .9L removed on 12/16/2016; ( Note: there is no pleural fluid cx since orders were placed after Right thoracentesis, and Left thoracentesis was not performed on 12/17/16 d/t insufficient fluid) - ARANZA on CKD that progressed to ESRD and started on HD from 12/09/2016 - oliguria - improved - A fib -> PAF - small nonreversible perfusion abnormality in the inferoapical and inferior carver; EF 36% per Lexiscan 12/24/2016 - severe , EF 40-45% per TTE 12/17/16 - DM - Hgb A1c 8.7% - HTN associated with DM - acute encephalopathy with anoxic brain injury - unstageable decubitus ulcer of coccyx, no evidence of infection NOTE: Pt completed 6 weeks (12/03/2016-01/15/2017) of antibiotics to treat 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 and left fourth proximal phalanx ; s/p pip/tazo 12/03/16-01/08/17; linezolid 01/08/17-01/20/17; caspofungin 01/12/17-01/21/17 recommendations: - pending results: blood cultures from HD catheter on 02/02/2017 - continue renally dosed cefepime for pseudomonas (intermediate sensitivity) and neb tobramycin (sensitive) for now - continue IV renally dosed fluconazole for refractory thrush - continue nystatin for thrush - funguria: external [place] was changed on 02/03/2017 - wound care of the coccyx and upper back management d/w Pt's and RN the critical care time I took to care for this Pt today was [id number] to [id number] Problems: Consultation Date/Type/Reason Admit Date/Time Dec 02, 2016 at 21:01 Initial Consult Date 12/03/16 Type of Consultation: ID Referring Provider: VIET PARKER MD 24 HR Interval Summary Subjective hx not possible: pt non-verbal, pt critical, pt critical status Exam/Review of Systems Vital Signs Vitals Vital Signs Date Time Temp Pulse Resp B/P Pulse Ox O2 Delivery O2 Flow Rate FiO2 02/04/17 13:59 110 23 02/04/17 13:53 100 30 02/04/17 10:00 120/55 Mechanical Ventilator Trach Collar 02/04/17 08:00 98.2 Intake and Output 02/03/17 02/03/17 02/04/17 15:00 23:00 07:00 Intake Total 300 ml 860 ml Output Total 15 ml 350 ml Balance 285 ml 510 ml Exam Constitutional: frail, non-verbal Psych: confusion Head: atraumatic, normocephalic Eyes: nl conjunctiva, nl lids ENMT: other (thrush) Neck: other (trach) Respiratory: crackles/rales Cardiovascular: nl pulses, regular rate and rhythm Gastrointestinal: non-tender, soft Genitourinary - Male: nl penis, nl scrotum Musculoskeletal: nl extremities to inspection Extremities: No edema Neurological: confused, lethargic Skin: rash or lesions (deub of the coccyx) Results Result Diagram: 02/04/17 0550 02/04/17 0550 Results 24 hrs Laboratory Tests Test 02/03/17:30 02/03/17 20:07 02/04/17 00:42 02/04/17 05:24 Bedside Glucose 232 H 265 H 241 H 226 H Test 02/04/17 05:50 02/04/17 08:55 02/04/17 12:30 White Blood Count 12.5 H Red Blood Count 2.62 L Hemoglobin 7.7 L Hematocrit 23.8 L Mean Corpuscular Volume 90.8 Mean Corpuscular Hemoglobin 29.4 Mean Corpuscular Hemoglobin Concent 32.4 Red Cell Distribution Width 15.9 H Platelet Count 172 Mean Platelet Volume 11.0 H Neutrophils % 85.8 H Lymphocytes % 7.3 L Monocytes % 6.1 Eosinophils % 0.2 Basophils % 0.1 Nucleated Red Blood Cells % 0.0 Neutrophils # 10.7 H Lymphocytes # 0.9 Monocytes # 0.8 Eosinophils # 0.0 Basophils # 0.0 Nucleated Red Blood Cells # 0.0 Sodium Level 140 Potassium Level 4.2 Chloride Level 98 Carbon Dioxide Level 28 Anion Gap 18 H Blood Urea Nitrogen 68 H Creatinine 2.22 H Glucose Level 234 H Calcium Level 8.5 Bedside Glucose 221 H 195 Medications Medications Current Medications Ondansetron HCl (Zofran Inj) 4 mg Q6H PRN IV NAUSEA AND/OR VOMITING Last administered on 12/13/16 01:13; Admin Dose 4 MG; Start 12/02/16 at 22:30 Miscellaneous Information 1 ea NOTE XX ; Start 12/02/16 at 23:00 Glucose (Glutose) 15 gm Q15M PRN PO DECREASED GLUCOSE; Start 12/02/16 at 23:00 Glucose (Glutose) 22.5 gm Q15M PRN PO DECREASED GLUCOSE; Start 12/02/16 at 23: 00 Dextrose (D50w Syringe) 25 ml Q15M PRN IV DECREASED GLUCOSE Last administered on 01/26/17 05:21; Admin Dose 25 ML; Start 12/02/16 at 23:00 Dextrose (D50w Syringe) 50 ml Q15M PRN IV DECREASED GLUCOSE Last administered on 01/23/17 04:58; Admin Dose 50 ML; Start 12/02/16 at 23:00 Glucagon (Glucagen) 1 mg Q15M PRN IM DECREASED GLUCOSE; Start 12/02/16 at 23:00 Glucose (Glutose) 15 gm Q15M PRN BUCCAL DECREASED GLUCOSE; Start 12/02/16 at 23 :00 Gabapentin (Neurontin) 800 mg TID PO Last administered on 12/08/16 20:33; Admin Dose 800 MG; Start 12/03/16 at 09:00; Status Future Hold Benazepril HCl (Lotensin) 10 mg DAILY PO Last administered on 12/07/16 08:26; Admin Dose 10 MG; Start 12/04/16 at 09:00; Status Future Hold Acetaminophen (Tylenol Supp) 650 mg Q6H PRN [place] ELEVATED TEMPERATURE Last administered on 01/13/17 20:32; Admin Dose 650 MG; Start 12/09/16 at 17:00 Hydralazine HCl (Apresoline) 10 mg Q6H PRN IV SBP>150mm hg Last administered on 12/19/16 08:50; Admin Dose 10 MG; Start 12/11/16 at 10:30 Morphine Sulfate (morphine) 2 mg Q2H PRN IV PAIN LEVEL 4-7; Start 12/13/16 at 10 :00 Collagenase (Santyl) 1 applic DAILY TOP Last administered on 02/04/17 08:47; Admin Dose 1 APPLIC; Start 01/04/17 at 09:00 Metoprolol Tartrate (Lopressor) 5 mg Q4 PRN IV FOR H.R>110; Start 01/12/17 at 17:30 Acetaminophen (Tylenol Liquid) 650 mg Q6H PRN NGT PAIN AND OR ELEVATED TEMP Last administered on 02/03/17 17:37; Admin Dose 650 MG; Start 01/13/17 at 23:30 Apixaban (Eliquis) 2.5 mg BID NGT Last administered on 01/30/17 08:18; Admin Dose 2.5 MG; Start 01/13/17 at 21:00; Status Future Hold Acetaminophen/ Hydrocodone Bitart ([place] (5/325)) 1 tab Q6H PRN NGT PAIN LEVEL 4-7; Start 01/13/17 at 23:30 Levetiracetam (Keppra Liquid) 1,000 mg DAILY NGT Last administered on 08:46; Admin Dose 1,000 MG; Start 01/14/17 at 09:00 Meclizine HCl (Antivert) 25 mg TID PRN NGT dizziness; Start 01/13/17 at 20:00 Zolpidem Tartrate (Ambien) 5 mg HS PRN NGT INSOMNIA; Start 01/13/17 at 20:00 Aspirin (Aspirin) 81 mg DAILY NGT Last administered on 01/30/17 08:18; Admin Dose 81 MG; Start 01/14/17 at 09:00; Status Future Hold Docusate Sodium (Colace Liquid Cup) 100 mg BID NGT Last administered on 08:46; Admin Dose 100 MG; Start 01/13/17 at 21:00 Pantoprazole (Protonix Iv) 40 mg DAILY@06 IV Last administered on 02/04/17 05: 20; Admin Dose 40 MG; Start 01/14/17 at 06:00 Amiodarone HCl (Cordarone) 200 mg Q8 NGT Last administered on 02/04/17 13:07; Admin Dose 200 MG; Start 01/17/17 at 14:00 Metoprolol Tartrate (Lopressor) 12.5 mg BID NGT Last administered on 02/04/17 08:46; Admin Dose 12.5 MG; Start 01/24/17 at 21:00 Insulin Aspart (Novolog Insulin Pen) NOVOLOG *MODERATE* ALGORI... Q4 SC Last administered on 02/04/17 12:32; Admin Dose 4 UNIT; Start 01/25/17 at 13:00 Nystatin 5 ml 5 ml Q6 PO Last administered on 02/04/17 12:31; Admin Dose 5 ML ; Start 01/31/17 at 12:00 Norepinephrine 16 mg/Dextrose 500 ml @ 0 mls/hr TITRATE IV ; Start 02/01/17 at 07:00 Fluconazole/ Sodium Chloride 50 ml @ 50 mls/hr Q24H IVPB Last administered on 10:49; Admin Dose 50 MLS/HR; Start 02/02/17 at 11:00 Cefepime HCl (Maxipime 1gm/50 ml (Pmx)) 50 ml @ 100 mls/hr DAILY IVPB Last administered on 02/04/17 08:46; Admin Dose 100 MLS/HR; Start 02/02/17 at 11:00 Insulin Glargine (Lantus) 40 unit DAILY@20 SC ; Start 02/04/17 at 20:00 CHRISTY LOPEZ M.D. Feb 04, 2017 15:48
[2017-02-04 16:44] LABS: AADO2 Arterial 246.4 mmHg (7.0-24.0); Allen Test ACCEPTAB; Arterial Base Excess 4.7 mmol/L (-3.0-3); Arterial COHb 0.3 % (0.0-3.0); Arterial Fraction of Oxyhgb 94.2 % (93.0-99.0); Arterial HCO3 27.6 mmol/L (22.0-26.0); Arterial MetHb 0.1 % (0.0-1.5); Arterial Total Hemglobin 9.9 g/dl (12.0-18.0); MODE VENT - AC
--- NOTE | 2017-02-04 16:49 | CONS ---
Date/Time of Note Date/Time of Note DATE: 02/04/17 TIME: 16:46 Assessment/Plan Assessment/Plan Additional Assessment/Plan -S/p cardiopulmonary arrest on 12/09/2016 and on 01/08/2017 - 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 Blood cultures from HD catheter on 12/13/2016 are negative to date. 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 MRI on 12/06/2016 and bone scan on showed 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 and left fourth proximal phalanx. superficial swab grew inna only - s/p right pleural effusion s/p thoracentesis with .9L removed on 12/16/2016 - severe , EF 40-45% per TTE 12/17/16 - DM - Hgb A1c 8.7% - HTN associated with DM Tracheostomy site bleeding Plan: s/p HD today 1.6 L removed , will continue HD on MWF s/p Tracheostomy, on ventilator pt will need HD palcement at a unit where they can do a HD for pt with tracheostomy and PEG tube placemen t pt has severe , very labile BP sometimes with HD will continue to follow up for HD need Consultation Date/Type/Reason Admit Date/Time Dec 02, 2016 at 21:01 Initial Consult Date Type of Consultation: NEPHROLOGY Referring Provider: VIET PARKER MD 24 HR Interval Summary Free Text/Dictation s/p HD today 1.6 L removed, Afebrile, no feve,r no chills Exam/Review of Systems Vital Signs Vitals Vital Signs Date Time Temp Pulse Resp B/P Pulse Ox O2 Delivery O2 Flow Rate FiO2 02/04/17 13:59 110 23 02/04/17 13:53 100 30 02/04/17 10:00 120/55 Mechanical Ventilator Trach Collar 02/04/17 08:00 98.2 Intake and Output 02/03/17 02/03/17 02/04/17 15:00 23:00 07:00 Intake Total 300 ml 860 ml Output Total 15 ml 350 ml Balance 285 ml 510 ml Exam Constitutional: frail, non-verbal Neck: + tracheostomy Respiratory: crackles/rales Cardiovascular: nl pulses, regular rate and rhythm Gastrointestinal: non-tender, soft Musculoskeletal: nl extremities to inspection Extremities: No edema Neurological: confused, lethargic Skin: other (unstageable ulcer on coccyx) Results Result Diagram: 02/04/17 0550 02/04/17 0550 Results 24 hrs Laboratory Tests Test 02/03/17 17:30 02/03/17 20:07 02/04/17 00:42 02/04/17 05:24 Bedside Glucose 232 H 265 H 241 H 226 H Test 02/04/17 05:50 02/04/17 08:55 02/04/17 12:30 02/04/17 16:00 White Blood Count 12.5 H Red Blood Count 2.62 L Hemoglobin 7.7 L Hematocrit 23.8 L Mean Corpuscular Volume 90.8 Mean Corpuscular Hemoglobin 29.4 Mean Corpuscular Hemoglobin Concent 32.4 Red Cell Distribution Width 15.9 H Platelet Count 172 Mean Platelet Volume 11.0 H Neutrophils % 85.8 H Lymphocytes % 7.3 L Monocytes % 6.1 Eosinophils % 0.2 Basophils % 0.1 Nucleated Red Blood Cells % 0.0 Neutrophils # 10.7 H Lymphocytes # 0.9 Monocytes # 0.8 Eosinophils # 0.0 Basophils # 0.0 Nucleated Red Blood Cells # 0.0 Sodium Level 140 Potassium Level 4.2 Chloride Level 98 Carbon Dioxide Level 28 Anion Gap 18 H Blood Urea Nitrogen 68 H Creatinine 2.22 H Glucose Level 234 H Calcium Level 8.5 Bedside Glucose 221 H 195 Blood Gas Specimen Source Blood arterial Arterial Blood Date Drawn 02/04/2017 4:38:25 PM Arterial Blood pH (Temp corrected) 7.519 H Arterial Blood pCO2 (Temp correct) 34.7 L Arterial Blood pO2 (Temp corrected) 71.1 L Arterial Blood HCO3 27.6 H Arterial Blood Base Excess 4.7 H Arterial Blood Oxygen Saturation 94.6 L Derek Test ACCEPTAB Arterial Blood Gas Puncture Site Right Radial Arterial Blood Carboxyhemoglobin 0.3 Arterial Blood Methemoglobin 0.1 Blood Gas A-a O2 Differential 246.4 H Oxyhemoglobin Percent 94.2 Total Hemoglobin 9.9 L Blood Gas Temperature 37.0 Blood Gas Respiration Rate 16.0 Blood Gas Actual Respiration Rate 20 Blood Gas Modality VENT - AC FiO2 50.0 Blood Gas Tidal Volume 500.0 Blood Gas Low PEEP Setting 5.0 Blood Gas Notified Whom [place] Blood Gas Notified Time 02/04/2017 4:42:59 PM Medications Medications Current Medications Ondansetron HCl (Zofran Inj) 4 mg Q6H PRN IV NAUSEA AND/OR VOMITING Last administered on 12/13/16 01:13; Admin Dose 4 MG; Start 12/02/16 at 22:30 Miscellaneous Information 1 ea NOTE XX ; Start 12/02/16 at 23:00 Glucose (Glutose) 15 gm Q15M PRN PO DECREASED GLUCOSE; Start 12/02/16 at 23:00 Glucose (Glutose) 22.5 gm Q15M PRN PO DECREASED GLUCOSE; Start 12/02/16 at 23: 00 Dextrose (D50w Syringe) 25 ml Q15M PRN IV DECREASED GLUCOSE Last administered on 01/26/17 05:21; Admin Dose 25 ML; Start 12/02/16 at 23:00 Dextrose (D50w Syringe) 50 ml Q15M PRN IV DECREASED GLUCOSE Last administered on 01/23/17 04:58; Admin Dose 50 ML; Start 12/02/16 at 23:00 Glucagon (Glucagen) 1 mg Q15M PRN IM DECREASED GLUCOSE; Start 12/02/16 at 23:00 Glucose (Glutose) 15 gm Q15M PRN BUCCAL DECREASED GLUCOSE; Start 12/02/16 at 23 :00 Gabapentin (Neurontin) 800 mg TID PO Last administered on 12/08/16 20:33; Admin Dose 800 MG; Start 12/03/16 at 09:00; Status Future Hold Benazepril HCl (Lotensin) 10 mg DAILY PO Last administered on 12/07/16 08:26; Admin Dose 10 MG; Start 12/04/16 at 09:00; Status Future Hold Acetaminophen (Tylenol Supp) 650 mg Q6H PRN [place] ELEVATED TEMPERATURE Last administered on 01/13/17 20:32; Admin Dose 650 MG; Start 12/09/16 at 17:00 Hydralazine HCl (Apresoline) 10 mg Q6H PRN IV SBP>150mm hg Last administered on 12/19/16 08:50; Admin Dose 10 MG; Start 12/11/16 at 10:30 Morphine Sulfate (morphine) 2 mg Q2H PRN IV PAIN LEVEL 4-7; Start 12/13/16 at 10 :00 Collagenase (Santyl) 1 applic DAILY TOP Last administered on 02/04/17 08:47; Admin Dose 1 APPLIC; Start 01/04/17 at 09:00 Metoprolol Tartrate (Lopressor) 5 mg Q4 PRN IV FOR H.R>110; Start 01/12/17 at 17:30 Acetaminophen (Tylenol Liquid) 650 mg Q6H PRN NGT PAIN AND OR ELEVATED TEMP Last administered on 02/03/17 17:37; Admin Dose 650 MG; Start 01/13/17 at 23:30 Apixaban (Eliquis) 2.5 mg BID NGT Last administered on 01/30/17 08:18; Admin Dose 2.5 MG; Start 01/13/17 at 21:00; Status Future Hold Acetaminophen/ Hydrocodone Bitart ([place] (5/325)) 1 tab Q6H PRN NGT PAIN LEVEL 4-7; Start 01/13/17 at 23:30 Levetiracetam (Keppra Liquid) 1,000 mg DAILY NGT Last administered on 08:46; Admin Dose 1,000 MG; Start 01/14/17 at 09:00 Meclizine HCl (Antivert) 25 mg TID PRN NGT dizziness; Start 01/13/17 at 20:00 Zolpidem Tartrate (Ambien) 5 mg HS PRN NGT INSOMNIA; Start 01/13/17 at 20:00 Aspirin (Aspirin) 81 mg DAILY NGT Last administered on 01/30/17 08:18; Admin Dose 81 MG; Start 01/14/17 at 09:00; Status Future Hold Docusate Sodium (Colace Liquid Cup) 100 mg BID NGT Last administered on 08:46; Admin Dose 100 MG; Start 01/13/17 at 21:00 Pantoprazole (Protonix Iv) 40 mg DAILY@06 IV Last administered on 02/04/17 05: 20; Admin Dose 40 MG; Start 01/14/17 at 06:00 Amiodarone HCl (Cordarone) 200 mg Q8 NGT Last administered on 02/04/17 13:07; Admin Dose 200 MG; Start 01/17/17 at 14:00 Metoprolol Tartrate (Lopressor) 12.5 mg BID NGT Last administered on 02/04/17 08:46; Admin Dose 12.5 MG; Start 01/24/17 at 21:00 Insulin Aspart (Novolog Insulin Pen) NOVOLOG *MODERATE* ALGORI... Q4 SC Last administered on 02/04/17 12:32; Admin Dose 4 UNIT; Start 01/25/17 at 13:00 Nystatin 5 ml 5 ml Q6 PO Last administered on 02/04/17 12:31; Admin Dose 5 ML ; Start 01/31/17 at 12:00 Norepinephrine 16 mg/Dextrose 500 ml @ 0 mls/hr TITRATE IV ; Start 02/01/17 at 07:00 Fluconazole/ Sodium Chloride 50 ml @ 50 mls/hr Q24H IVPB Last administered on 10:49; Admin Dose 50 MLS/HR; Start 02/02/17 at 11:00 Cefepime HCl (Maxipime 1gm/50 ml (Pmx)) 50 ml @ 100 mls/hr DAILY IVPB Last administered on 02/04/17 08:46; Admin Dose 100 MLS/HR; Start 02/02/17 at 11:00 Insulin Glargine (Lantus) 40 unit DAILY@20 SC ; Start 02/04/17 at 20:00 TASHIA MCGARRY MD Feb 04, 2017 16:49
--- NOTE | 2017-02-04 20:28 | CONS ---
Date/Time of Note Date/Time of Note DATE: 02/04/17 TIME: 20:25 Assessment/Plan Assessment/Plan Chief Complaint/Hosp Course - possible recurrent sepsis - recurrent cardiopulmonary arrest on 12/09/2016 and on 01/08/2017 - s/p sepsis due to possible tracheobronchitis/pneumonia - recurrent tracheobronchitis/pneumonia due to pseudomonas - thrush, refractory to nystatin - funguria - bleeding from trach site - s/p recurrent sepsis - 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 Blood cultures from HD catheter on 12/13/2016 are negative to date. 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 MRI on 12/06/2016 and bone scan on showed 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 and left fourth proximal phalanx. superficial swab grew inna only. At present, no e/o persistent infection - recurrent pleural effusion - s/p right pleural effusion s/p thoracentesis with .9L removed on 12/16/2016; ( Note: there is no pleural fluid cx since orders were placed after Right thoracentesis, and Left thoracentesis was not performed on 12/17/16 d/t insufficient fluid) - ARANZA on CKD that progressed to ESRD and started on HD from 12/09/2016 - oliguria - improved - A fib -> PAF - small nonreversible perfusion abnormality in the inferoapical and inferior carver; EF 36% per Lexiscan 12/24/2016 - severe , EF 40-45% per TTE 12/17/16 - DM - Hgb A1c 8.7% - HTN associated with DM - acute encephalopathy with anoxic brain injury - unstageable decubitus ulcer of coccyx, no evidence of infection NOTE: Pt completed 6 weeks (12/03/2016-01/15/2017) of antibiotics to treat 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 and left fourth proximal phalanx ; s/p pip/tazo 12/03/16-01/08/17; linezolid 01/08/17-01/20/17; caspofungin 01/12/17-01/21/17 REVISED recommendations: - pending results: blood cultures from HD catheter on 02/02/2017 - continue renally dosed cefepime for pseudomonas, change neb tobramycin to systemic tobramycin in light of increasing FiO2. - change renally dosed fluconazole to caspofungin - continue nystatin for thrush - funguria: external Mol[place] was changed on 02/03/2017 - wound care of the coccyx and upper back management d/w Pt's and RN the critical care time I took to care for this Pt today was 1420 to 1500, 2009 to 2024 Problems: Consultation Date/Type/Reason Admit Date/Time Dec 02, 2016 at 21:01 Initial Consult Date 12/03/16 Type of Consultation: ID Referring Provider: VIET PARKER MD Exam/Review of Systems Vital Signs Vitals Vital Signs Date Time Temp Pulse Resp B/P Pulse Ox O2 Delivery O2 Flow Rate FiO2 02/04/17 20:00 98.9 79 21 129/66 100 Mechanical Ventilator 02/04/17 19:05 60 Intake and Output 02/03/17 02/03/17 02/04/17 15:00 23:00 07:00 Intake Total 300 ml 915 ml Output Total 15 ml 365 ml Balance 285 ml 550 ml Results Result Diagram: 02/04/17 0550 02/04/17 0550 Results 24 hrs Laboratory Tests Test 02/04/17 00:42 02/04/17 05:24 02/04/17 05:50 02/04/17 08:55 Bedside Glucose 241 H 226 H 221 H White Blood Count 12.5 H Red Blood Count 2.62 L Hemoglobin 7.7 L Hematocrit 23.8 L Mean Corpuscular Volume 90.8 Mean Corpuscular Hemoglobin 29.4 Mean Corpuscular Hemoglobin Concent 32.4 Red Cell Distribution Width 15.9 H Platelet Count 172 Mean Platelet Volume 11.0 H Neutrophils % 85.8 H Lymphocytes % 7.3 L Monocytes % 6.1 Eosinophils % 0.2 Basophils % 0.1 Nucleated Red Blood Cells % 0.0 Neutrophils # 10.7 H Lymphocytes # 0.9 Monocytes # 0.8 Eosinophils # 0.0 Basophils # 0.0 Nucleated Red Blood Cells # 0.0 Sodium Level 140 Potassium Level 4.2 Chloride Level 98 Carbon Dioxide Level 28 Anion Gap 18 H Blood Urea Nitrogen 68 H Creatinine 2.22 H Glucose Level 234 H Calcium Level 8.5 Test 02/04/17 12:30 02/04/17 16:00 02/04/17 17:53 Bedside Glucose 195 271 H Blood Gas Specimen Source Blood arterial Arterial Blood Date Drawn 02/04/2017 4:38:25 PM Arterial Blood pH (Temp corrected) 7.519 H Arterial Blood pCO2 (Temp correct) 34.7 L Arterial Blood pO2 (Temp corrected) 71.1 L Arterial Blood HCO3 27.6 H Arterial Blood Base Excess 4.7 H Arterial Blood Oxygen Saturation 94.6 L Derek Test ACCEPTAB Arterial Blood Gas Puncture Site Right Radial Arterial Blood Carboxyhemoglobin 0.3 Arterial Blood Methemoglobin 0.1 Blood Gas A-a O2 Differential 246.4 H Oxyhemoglobin Percent 94.2 Total Hemoglobin 9.9 L Blood Gas Temperature 37.0 Blood Gas Respiration Rate 16.0 Blood Gas Actual Respiration Rate 20 Blood Gas Modality VENT - AC FiO2 50.0 Blood Gas Tidal Volume 500.0 Blood Gas Low PEEP Setting 5.0 Blood Gas Notified Whom [place] Blood Gas Notified Time 02/04/2017 4:42:59 PM Medications Medications Current Medications Ondansetron HCl (Zofran Inj) 4 mg Q6H PRN IV NAUSEA AND/OR VOMITING Last administered on 12/13/16 01:13; Admin Dose 4 MG; Start 12/02/16 at 22:30 Miscellaneous Information 1 ea NOTE XX ; Start 12/02/16 at 23:00 Glucose (Glutose) 15 gm Q15M PRN PO DECREASED GLUCOSE; Start 12/02/16 at 23:00 Glucose (Glutose) 22.5 gm Q15M PRN PO DECREASED GLUCOSE; Start 12/02/16 at 23: 00 Dextrose (D50w Syringe) 25 ml Q15M PRN IV DECREASED GLUCOSE Last administered on 01/26/17 05:21; Admin Dose 25 ML; Start 12/02/16 at 23:00 Dextrose (D50w Syringe) 50 ml Q15M PRN IV DECREASED GLUCOSE Last administered on 01/23/17 04:58; Admin Dose 50 ML; Start 12/02/16 at 23:00 Glucagon (Glucagen) 1 mg Q15M PRN IM DECREASED GLUCOSE; Start 12/02/16 at 23:00 Glucose (Glutose) 15 gm Q15M PRN BUCCAL DECREASED GLUCOSE; Start 12/02/16 at 23 :00 Gabapentin (Neurontin) 800 mg TID PO Last administered on 12/08/16 20:33; Admin Dose 800 MG; Start 12/03/16 at 09:00; Status Future Hold Benazepril HCl (Lotensin) 10 mg DAILY PO Last administered on 12/07/16 08:26; Admin Dose 10 MG; Start 12/04/16 at 09:00; Status Future Hold Acetaminophen (Tylenol Supp) 650 mg Q6H PRN [place] ELEVATED TEMPERATURE Last administered on 01/13/17 20:32; Admin Dose 650 MG; Start 12/09/16 at 17:00 Hydralazine HCl (Apresoline) 10 mg Q6H PRN IV SBP>150mm hg Last administered on 12/19/16 08:50; Admin Dose 10 MG; Start 12/11/16 at 10:30 Morphine Sulfate (morphine) 2 mg Q2H PRN IV PAIN LEVEL 4-7; Start 12/13/16 at 10 :00 Collagenase (Santyl) 1 applic DAILY TOP Last administered on 02/04/17 08:47; Admin Dose 1 APPLIC; Start 01/04/17 at 09:00 Metoprolol Tartrate (Lopressor) 5 mg Q4 PRN IV FOR H.R>110; Start 01/12/17 at 17:30 Acetaminophen (Tylenol Liquid) 650 mg Q6H PRN NGT PAIN AND OR ELEVATED TEMP Last administered on 02/03/17 17:37; Admin Dose 650 MG; Start 01/13/17 at 23:30 Apixaban (Eliquis) 2.5 mg BID NGT Last administered on 01/30/17 08:18; Admin Dose 2.5 MG; Start 01/13/17 at 21:00; Status Future Hold Acetaminophen/ Hydrocodone Bitart ([place] (5/325)) 1 tab Q6H PRN NGT PAIN LEVEL 4-7; Start 01/13/17 at 23:30 Levetiracetam (Keppra Liquid) 1,000 mg DAILY NGT Last administered on 08:46; Admin Dose 1,000 MG; Start 01/14/17 at 09:00 Meclizine HCl (Antivert) 25 mg TID PRN NGT dizziness; Start 01/13/17 at 20:00 Zolpidem Tartrate (Ambien) 5 mg HS PRN NGT INSOMNIA; Start 01/13/17 at 20:00 Aspirin (Aspirin) 81 mg DAILY NGT Last administered on 01/30/17 08:18; Admin Dose 81 MG; Start 01/14/17 at 09:00; Status Future Hold Docusate Sodium (Colace Liquid Cup) 100 mg BID NGT Last administered on 08:46; Admin Dose 100 MG; Start 01/13/17 at 21:00 Pantoprazole (Protonix Iv) 40 mg DAILY@06 IV Last administered on 02/04/17 05: 20; Admin Dose 40 MG; Start 01/14/17 at 06:00 Amiodarone HCl (Cordarone) 200 mg Q8 NGT Last administered on 02/04/17 13:07; Admin Dose 200 MG; Start 01/17/17 at 14:00 Metoprolol Tartrate (Lopressor) 12.5 mg BID NGT Last administered on 02/04/17 08:46; Admin Dose 12.5 MG; Start 01/24/17 at 21:00 Insulin Aspart (Novolog Insulin Pen) NOVOLOG *MODERATE* ALGORI... Q4 SC Last administered on 02/04/17 17:55; Admin Dose 8 UNIT; Start 01/25/17 at 13:00 Nystatin 5 ml 5 ml Q6 PO Last administered on 02/04/17 17:54; Admin Dose 5 ML ; Start 01/31/17 at 12:00 Norepinephrine 16 mg/Dextrose 500 ml @ 0 mls/hr TITRATE IV ; Start 02/01/17 at 07:00 Fluconazole/ Sodium Chloride 50 ml @ 50 mls/hr Q24H IVPB Last administered on 10:49; Admin Dose 50 MLS/HR; Start 02/02/17 at 11:00 Cefepime HCl (Maxipime 1gm/50 ml (Pmx)) 50 ml @ 100 mls/hr DAILY IVPB Last administered on 02/04/17t 08:46; Admin Dose 100 MLS/HR; Start 02/02/17 at 11:00 Insulin Glargine (Lantus) 40 unit DAILY@20 SC ; Start 02/04/17 at 20:00 CHRISTY LOPEZ M.D. Feb 04, 2017 20:28
[2017-02-04] MEDS ORDERED: TOBRAMYCIN IV PER PHARMACY XX SCH (20:30)
[2017-02-04] MEDS: INSULIN GLARGINE [LANtus] 3 ML PEN SC SCH (21:10)
[2017-02-04] MEDS ORDERED: CASPOFUNGIN 70 MG in SOD CHLORIDE 0.9% 250 ML IVPB ONE (22:00)
[2017-02-04] MEDS ORDERED: TOBRAMYCIN 130 MG in SOD CHLORIDE 0.9% 100 ML IVPB SCH (23:00)
[2017-02-05] VITALS (45 sets, daily range): BP systolic 86–153; BP diastolic 30–63; PULSE 41–80; RESP 0–23
[2017-02-05] MEDS: ALBUTEROL 18 GM INHALER INH SCH ×4 (01:10→19:28)
[2017-02-05] MEDS: NYSTATIN SUSP 5 ML CUP PO SCH ×4 (01:52→18:56)
[2017-02-05] MEDS: INSULIN ASPART [NOVOLOG] 3 ML PEN SC SCH ×6 (02:00→20:37)
[2017-02-05] MEDS: AMIODARONE 200 MG TAB NGT SCH ×3 (06:00→22:49)
[2017-02-05 06:31] LABS: ADD SCAN DIFF NO
[2017-02-05] MEDS ORDERED: ATROPINE 1 MG/10 ML SYRINGE ONE (06:47)
[2017-02-05 06:48] LABS: CALCIUM 8.5 mg/dl (8.4-10.2); CREATININE 1.98 mg/dl (0.61-1.24); POTASSIUM 4.4 mmol/L (3.5-5.1)
[2017-02-05] MEDS: PANTOPRAZOLE 40 MG INJ IV SCH (06:48)
[2017-02-05 07:29] LABS: AADO2 Arterial 136.9 mmHg (7.0-24.0); Allen Test ACCEPTAB; Arterial Base Excess 6.3 mmol/L (-3.0-3); Arterial COHb 0.3 % (0.0-3.0); Arterial Fraction of Oxyhgb 97.1 % (93.0-99.0); Arterial HCO3 29.3 mmol/L (22.0-26.0); Arterial MetHb 0.4 % (0.0-1.5); Arterial Total Hemglobin 8.3 g/dl (12.0-18.0); MODE VENT - AC
[2017-02-05] MEDS: DOCUSATE SODIUM 10 MG/ML (10ML CUP) NGT SCH ×2 (08:48→20:41)
[2017-02-05] MEDS: CEFEPIME 1GM/50 ML (PMX) 50 ML IVPB SCH (08:48)
[2017-02-05] MEDS: LEVETIRACETAM (100 MG/ML) 5ML CUP NGT SCH (08:49)
[2017-02-05] MEDS: METOPROLOL 25 MG TAB NGT SCH ×2 (09:00→20:42)
[2017-02-05] MEDS: COLLAGENASE 30 GM TUBE TOP SCH (09:00)
--- NOTE | 2017-02-05 09:54 | CONS ---
Date/Time of Note Date/Time of Note DATE: 02/05/17 TIME: 09:52 Assessment/Plan Assessment/Plan Additional Assessment/Plan Ventilator setting; AC of 16, tidal volume 500, PEEP of 5, 40% FiO2. Assessment recommendations; 1. Patient admitted with recurrent respiratory failure due to flash pulmonary edema causing respiratory failure patient status post CPR resulting in severe anoxic brain injury. 2. Chronic renal failure, on hemodialysis. 3. Recent history of osteomyelitis. 4. Tracheal bleed without any further recurrence over the last 48 hours. 5. Anemia. Continue current treatment. Overall prognosis remains very poor. Patient awaiting G-tube placement. Consultation Date/Type/Reason Admit Date/Time Dec 02, 2016 at 21:01 Initial Consult Date 12/03/16 Type of Consultation: Pulmonary/critical care Referring Provider: VIET PARKER MD 24 HR Interval Summary Free Text/Dictation Patient condition remains unchanged. Remains unresponsive. Has remained hemodynamically stable. General exam; elderly male, on ventilator via tracheostomy currently in no distress. Unresponsive. Exam/Review of Systems Vital Signs Vitals Vital Signs Date Time Temp Pulse Resp B/P Pulse Ox O2 Delivery O2 Flow Rate FiO2 02/05/17 08:00 72 02/05/17 07:00 0 101/33 100 Mechanical Ventilator 02/05/17 05:22 40 02/05/17 04:00 98.7 Intake and Output 02/04/17 02/04/17 02/05/17 15:00 23:00 07:00 Intake Total 1640 ml 270 ml 1800 ml Output Total 2520 ml 60 ml 1800 ml Balance -880 ml 210 ml 0 ml Exam HEENT exam is; supple neck, no JVD. No lymphadenopathy. Midline trachea. No thyromegaly. Tracheostomy placed without any further active bleeding noted. Patient is edentulous. Chest examination; clear to auscultation. S1-S2 audible, no murmurs. Regular rhythm. Abdomen examination; soft, non-distended. No organomegaly. Bowel sounds audible. Extremity exam; no peripheral edema. [employer] examination; patient remains unresponsive. Results Result Diagram: 02/04/17 0550 02/05/17 0502 Results 24 hrs Laboratory Tests Test 02/04/17 12:30 02/04/17 16:00 02/04/17 17:53 02/04/17 21:02 Bedside Glucose 195 271 H 243 H Blood Gas Specimen Source Blood arterial Arterial Blood Date Drawn 02/04/2017 4:38:25 PM Arterial Blood pH (Temp corrected) 7.519 H Arterial Blood pCO2 (Temp correct) 34.7 L Arterial Blood pO2 (Temp corrected) 71.1 L Arterial Blood HCO3 27.6 H Arterial Blood Base Excess 4.7 H Arterial Blood Oxygen Saturation 94.6 L Derek Test ACCEPTAB Arterial Blood Gas Puncture Site Right Radial Arterial Blood Carboxyhemoglobin 0.3 Arterial Blood Methemoglobin 0.1 Blood Gas A-a O2 Differential 246.4 H Oxyhemoglobin Percent 94.2 Total Hemoglobin 9.9 L Blood Gas Temperature 37.0 Blood Gas Respiration Rate 16.0 Blood Gas Actual Respiration Rate 20 Blood Gas Modality VENT - AC FiO2 50.0 Blood Gas Tidal Volume 500.0 Blood Gas Low PEEP Setting 5.0 Blood Gas Notified Whom [place] Blood Gas Notified Time 02/04/2017 4:42:59 PM Test 02/05/17 01:48 02/05/17 05:02 02/05/17 05:39 02/05/17 06:20 Bedside Glucose 206 209 Sodium Level 138 Potassium Level 4.4 Chloride Level 98 Carbon Dioxide Level 30 Anion Gap 14 Blood Urea Nitrogen 54 H Creatinine 1.98 H Glucose Level 198 Calcium Level 8.5 Lab Scanned Report BLOOD TRANSFUSION Test 02/05/17 07:00 02/05/17 08:40 Blood Gas Specimen Source Blood arterial Arterial Blood Date Drawn 02/05/2017 7:10:33 AM Arterial Blood pH (Temp corrected) 7.532 H Arterial Blood pCO2 (Temp correct) 35.7 Arterial Blood pO2 (Temp corrected) 107.2 H Arterial Blood HCO3 29.3 H Arterial Blood Base Excess 6.3 H Arterial Blood Oxygen Saturation 97.8 Derek Test ACCEPTAB Arterial Blood Gas Puncture Site Right Radial Arterial Blood Carboxyhemoglobin 0.3 Arterial Blood Methemoglobin 0.4 Blood Gas A-a O2 Differential 136.9 H Oxyhemoglobin Percent 97.1 Total Hemoglobin 8.3 L Blood Gas Temperature 37.0 Blood Gas Respiration Rate 16.0 Blood Gas Actual Respiration Rate 17 Blood Gas Modality VENT - AC FiO2 40.0 Blood Gas Tidal Volume 500.0 Blood Gas Low PEEP Setting 5.0 Blood Gas Notified Whom JLD Blood Gas Notified Time 02/05/2017 7:29:15 AM Bedside Glucose 164 Medications Medications Current Medications Ondansetron HCl (Zofran Inj) 4 mg Q6H PRN IV NAUSEA AND/OR VOMITING Last administered on 12/13/16 01:13; Admin Dose 4 MG; Start 12/02/16 at 22:30 Miscellaneous Information 1 ea NOTE XX ; Start 12/02/16 at 23:00 Glucose (Glutose) 15 gm Q15M PRN PO DECREASED GLUCOSE; Start 12/02/16 at 23:00 Glucose (Glutose) 22.5 gm Q15M PRN PO DECREASED GLUCOSE; Start 12/02/16 at 23: 00 Dextrose (D50w Syringe) 25 ml Q15M PRN IV DECREASED GLUCOSE Last administered on 01/26/17 05:21; Admin Dose 25 ML; Start 12/02/16 at 23:00 Dextrose (D50w Syringe) 50 ml Q15M PRN IV DECREASED GLUCOSE Last administered on 01/23/17 04:58; Admin Dose 50 ML; Start 12/02/16 at 23:00 Glucagon (Glucagen) 1 mg Q15M PRN IM DECREASED GLUCOSE; Start 12/02/16 at 23:00 Glucose (Glutose) 15 gm Q15M PRN BUCCAL DECREASED GLUCOSE; Start 12/02/16 at 23 :00 Gabapentin (Neurontin) 800 mg TID PO Last administered on 12/08/16 20:33; Admin Dose 800 MG; Start 12/03/16 at 09:00; Status Future Hold Benazepril HCl (Lotensin) 10 mg DAILY PO Last administered on 12/07/16 08:26; Admin Dose 10 MG; Start 12/04/16 at 09:00; Status Future Hold Acetaminophen (Tylenol Supp) 650 mg Q6H PRN [place] ELEVATED TEMPERATURE Last administered on 01/13/17 20:32; Admin Dose 650 MG; Start 12/09/16 at 17:00 Hydralazine HCl (Apresoline) 10 mg Q6H PRN IV SBP>150mm hg Last administered on 12/19/16 08:50; Admin Dose 10 MG; Start 12/11/16 at 10:30 Morphine Sulfate (morphine) 2 mg Q2H PRN IV PAIN LEVEL 4-7; Start 12/13/16 at 10 :00 Collagenase (Santyl) 1 applic DAILY TOP Last administered on 02/04/17 08:47; Admin Dose 1 APPLIC; Start 01/04/17 at 09:00 Metoprolol Tartrate (Lopressor) 5 mg Q4 PRN IV FOR H.R>110; Start 01/12/17 at 17:30 Acetaminophen (Tylenol Liquid) 650 mg Q6H PRN NGT PAIN AND OR ELEVATED TEMP Last administered on 02/03/17 17:37; Admin Dose 650 MG; Start 01/13/17 at 23:30 Apixaban (Eliquis) 2.5 mg BID NGT Last administered on 01/30/17 08:18; Admin Dose 2.5 MG; Start 01/13/17 at 21:00; Status Future Hold Acetaminophen/ Hydrocodone Bitart ([place] (5/325)) 1 tab Q6H PRN NGT PAIN LEVEL 4-7; Start 01/13/17 at 23:30 Levetiracetam (Keppra Liquid) 1,000 mg DAILY NGT Last administered on 08:49; Admin Dose 1,000 MG; Start 01/14/17 at 09:00 Meclizine HCl (Antivert) 25 mg TID PRN NGT dizziness; Start 01/13/17 at 20:00 Zolpidem Tartrate (Ambien) 5 mg HS PRN NGT INSOMNIA; Start 01/13/17 at 20:00 Aspirin (Aspirin) 81 mg DAILY NGT Last administered on 01/30/17 08:18; Admin Dose 81 MG; Start 01/14/17 at 09:00; Status Future Hold Docusate Sodium (Colace Liquid Cup) 100 mg BID NGT Last administered on 08:48; Admin Dose 100 MG; Start 01/13/17 at 21:00 Pantoprazole (Protonix Iv) 40 mg DAILY@06 IV Last administered on 02/05/17 06: 48; Admin Dose 40 MG; Start 01/14/17 at 06:00 Amiodarone HCl (Cordarone) 200 mg Q8 NGT Last administered on 02/04/17 21:13; Admin Dose 200 MG; Start 01/17/17 at 14:00 Metoprolol Tartrate (Lopressor) 12.5 mg BID NGT Last administered on 02/04/17 21:13; Admin Dose 12.5 MG; Start 01/24/17 at 21:00 Insulin Aspart (Novolog Insulin Pen) NOVOLOG *MODERATE* ALGORI... Q4 SC Last administered on 02/05/17 08:51; Admin Dose 2 UNIT; Start 01/25/17 at 13:00 Nystatin 5 ml 5 ml Q6 PO Last administered on 02/05/17 01:52; Admin Dose 5 ML ; Start 01/31/17 at 12:00 Norepinephrine 16 mg/Dextrose 500 ml @ 0 mls/hr TITRATE IV ; Start 02/01/17 at 07:00 Cefepime HCl (Maxipime 1gm/50 ml (Pmx)) 50 ml @ 100 mls/hr DAILY IVPB Last administered on 02/05/17 08:48; Admin Dose 100 MLS/HR; Start 02/02/17 at 11:00 Insulin Glargine (Lantus) 40 unit DAILY@20 SC Last administered on 02/04/17 21 :10; Admin Dose 40 UNIT; Start 02/04/17 at 20:00 Tobramycin TOBRAMYCIN PER PHARMACY NOTE XX ; Start 02/04/17 at 20:30 Caspofungin/ Sodium Chloride ([place]/NS) 250 ml @ 250 mls/hr Q24H IVPB ; Start 02/05/17 at 22:00 IKE MULLER Feb 05, 2017 09:54
[2017-02-05 10:10] LABS: BASOPHILS % 0.2 % (0.0-2.0); EOSINOPHILS # 0.1 10^3/ul (0.0-0.5); EOSINOPHILS % 0.6 % (0.0-7.0); HEMATOCRIT 26.4 % (42.0-52.0); HEMOGLOBIN 8.6 g/dl (14.0-18.0); LYMPHOCYTES # 1.1 10^3/ul (0.8-2.9); LYMPHOCYTES % 10.6 % (15.0-51.0); MEAN CORPUSCULAR HEMOGLOBIN 29.7 pg (29.0-33.0); MEAN CORPUSCULAR HGB CONC 32.6 g/dl (32.0-37.0); MONOCYTE # 0.7 10^3/ul (0.3-0.9); MONOCYTES % 6.8 % (0.0-11.0); NEUTROPHIL # 8.6 10^3/ul (1.6-7.5); NEUTROPHILS % 81.1 % (39.0-77.0); PLATELET COUNT 193 10^3/UL (140-415); RED CELL DISTRIBUTION WIDTH 15.9 % (11.5-14.5); WHITE BLOOD COUNT 10.6 10^3/ul (4.8-10.8)
--- NOTE | 2017-02-05 11:01 | PN ---
Date/Time of Note Date/Time of Note DATE: 02/05/17 TIME: 11:01 Assessment/Plan VTE Prophylaxis VTE Prophylaxis Intervention: other Lines/Catheters IV C[facility]ter Type [facility]from [facility] Perm-a-cath Assessment/Plan Chief Complaint/Hosp Course - Possible recurrent sepsis, continue antibiotics per ID Dr. Rollins is following infection disease consultation. Patient is currently on cefepime IV and tobramycin inhalation for Pseudomonas in sputum. - Anemia of blood loss. Continue to monitor H&H, transfuse as needed. - Status post cardiopulmonary arrest on 12/09/2016 and 01/08/2017. Continue ventilatory support. - Anoxic encephalopathy. Continue Keppra. - Status post tracheostomy on 01/23/2017. - Dysphagia. The patient is pending G-tube placement. - End-stage renal disease. Continue hemodialysis per nephrology. - Paroxysmal atrial fibrillation. Eliquis is currently held due to bleeding. - Diabetes mellitus type 2. Continue Lantus and NovoLog with sliding scale coverage with Accu-Cheks q. 4 hours. - Diabetic foot ulcer. Continue current wound care. - Osteomyelitis of the distal phalanx of the great left toe. Completed treatment for antibiotics. Problems: Subjective 24 Hr Interval Summary Free Text/Dictation Patient has eyes open but sedated with trach in place Exam/Review of Systems Vital Signs Vitals Vital Signs Date Time Temp Pulse Resp B/P Pulse Ox O2 Delivery O2 Flow Rate FiO2 02/05/17 08:00 72 02/05/17 07:00 0 101/33 100 Mechanical Ventilator 02/05/17 05:22 40 02/05/17 04:00 98.7 Intake and Output 02/04/17 02/04/17 02/05/17 15:00 23:00 07:00 Intake Total 1640 ml 270 ml 1800 ml Output Total 2520 ml 60 ml 1800 ml Balance -880 ml 210 ml 0 ml Exam Constitutional: well developed Head: atraumatic, normocephalic Neck: supple Respiratory: diminished breath sounds Cardiovascular: regular rate and rhythm Gastrointestinal: non-tender, soft Extremities: normal pulses Results Result Diagram: 02/05/17 0502 02/05/17 0502 Results 24 hrs Laboratory Tests Test 02/04/17 12:30 02/04/17 16:00 02/04/17 17:53 02/04/17 21:02 Bedside Glucose 195 271 H 243 H Blood Gas Specimen Source Blood arterial Arterial Blood Date Drawn 02/04/2017 4:38:25 PM Arterial Blood pH (Temp corrected) 7.519 H Arterial Blood pCO2 (Temp correct) 34.7 L Arterial Blood pO2 (Temp corrected) 71.1 L Arterial Blood HCO3 27.6 H Arterial Blood Base Excess 4.7 H Arterial Blood Oxygen Saturation 94.6 L Derek Test ACCEPTAB Arterial Blood Gas Puncture Site Right Radial Arterial Blood Carboxyhemoglobin 0.3 Arterial Blood Methemoglobin 0.1 Blood Gas A-a O2 Differential 246.4 H Oxyhemoglobin Percent 94.2 Total Hemoglobin 9.9 L Blood Gas Temperature 37.0 Blood Gas Respiration Rate 16.0 Blood Gas Actual Respiration Rate 20 Blood Gas Modality VENT - AC FiO2 50.0 Blood Gas Tidal Volume 500.0 Blood Gas Low PEEP Setting 5.0 Blood Gas Notified Whom [place] Blood Gas Notified Time 02/04/2017 4:42:59 PM Test 02/05/17 01:48 02/05/17 05:02 02/05/17 05:39 02/05/17 06:20 Bedside Glucose 206 209 White Blood Count 10.6 Red Blood Count 2.90 L Hemoglobin 8.6 L Hematocrit 26.4 L Mean Corpuscular Volume 91.0 Mean Corpuscular Hemoglobin 29.7 Mean Corpuscular Hemoglobin Concent 32.6 Red Cell Distribution Width 15.9 H Platelet Count 193 Mean Platelet Volume 11.0 H Neutrophils % 81.1 H Lymphocytes % 10.6 L Monocytes % 6.8 Eosinophils % 0.6 Basophils % 0.2 Nucleated Red Blood Cells % 0.0 Neutrophils # 8.6 H Lymphocytes # 1.1 Monocytes # 0.7 Eosinophils # 0.1 Basophils # 0.0 Nucleated Red Blood Cells # 0.0 Sodium Level 138 Potassium Level 4.4 Chloride Level 98 Carbon Dioxide Level 30 Anion Gap 14 Blood Urea Nitrogen 54 H Creatinine 1.98 H Glucose Level 198 Calcium Level 8.5 Lab Scanned Report BLOOD TRANSFUSION Test 02/05/17 07:00 02/05/17 08:40 Blood Gas Specimen Source Blood arterial Arterial Blood Date Drawn 02/05/2017 7:10:33 AM Arterial Blood pH (Temp corrected) 7.532 H Arterial Blood pCO2 (Temp correct) 35.7 Arterial Blood pO2 (Temp corrected) 107.2 H Arterial Blood HCO3 29.3 H Arterial Blood Base Excess 6.3 H Arterial Blood Oxygen Saturation 97.8 Derek Test ACCEPTAB Arterial Blood Gas Puncture Site Right Radial Arterial Blood Carboxyhemoglobin 0.3 Arterial Blood Methemoglobin 0.4 Blood Gas A-a O2 Differential 136.9 H Oxyhemoglobin Percent 97.1 Total Hemoglobin 8.3 L Blood Gas Temperature 37.0 Blood Gas Respiration Rate 16.0 Blood Gas Actual Respiration Rate 17 Blood Gas Modality VENT - AC FiO2 40.0 Blood Gas Tidal Volume 500.0 Blood Gas Low PEEP Setting 5.0 Blood Gas Notified Whom JLD Blood Gas Notified Time 02/05/2017 7:29:15 AM Bedside Glucose 164 Medications Medications Current Medications Ondansetron HCl (Zofran Inj) 4 mg Q6H PRN IV NAUSEA AND/OR VOMITING Last administered on 12/13/16 01:13; Admin Dose 4 MG; Start 12/02/16 at 22:30 Miscellaneous Information 1 ea NOTE XX ; Start 12/02/16 at 23:00 Glucose (Glutose) 15 gm Q15M PRN PO DECREASED GLUCOSE; Start 12/02/16 at 23:00 Glucose (Glutose) 22.5 gm Q15M PRN PO DECREASED GLUCOSE; Start 12/02/16 at 23: 00 Dextrose (D50w Syringe) 25 ml Q15M PRN IV DECREASED GLUCOSE Last administered on 01/26/17 05:21; Admin Dose 25 ML; Start 12/02/16 at 23:00 Dextrose (D50w Syringe) 50 ml Q15M PRN IV DECREASED GLUCOSE Last administered on 01/23/17 04:58; Admin Dose 50 ML; Start 12/02/16 at 23:00 Glucagon (Glucagen) 1 mg Q15M PRN IM DECREASED GLUCOSE; Start 12/02/16 at 23:00 Glucose (Glutose) 15 gm Q15M PRN BUCCAL DECREASED GLUCOSE; Start 12/02/16 at 23 :00 Gabapentin (Neurontin) 800 mg TID PO Last administered on 12/08/16 20:33; Admin Dose 800 MG; Start 12/03/16 at 09:00; Status Future Hold Benazepril HCl (Lotensin) 10 mg DAILY PO Last administered on 12/07/16 08:26; Admin Dose 10 MG; Start 12/04/16 at 09:00; Status Future Hold Acetaminophen (Tylenol Supp) 650 mg Q6H PRN [place] ELEVATED TEMPERATURE Last administered on 01/13/17 20:32; Admin Dose 650 MG; Start 12/09/16 at 17:00 Hydralazine HCl (Apresoline) 10 mg Q6H PRN IV SBP>150mm hg Last administered on 12/19/16 08:50; Admin Dose 10 MG; Start 12/11/16 at 10:30 Morphine Sulfate (morphine) 2 mg Q2H PRN IV PAIN LEVEL 4-7; Start 12/13/16 at 10 :00 Collagenase (Santyl) 1 applic DAILY TOP Last administered on 02/05/17 09:00; Admin Dose 1 APPLIC; Start 01/04/17 at 09:00 Metoprolol Tartrate (Lopressor) 5 mg Q4 PRN IV FOR H.R>110; Start 01/12/17 at 17:30 Acetaminophen (Tylenol Liquid) 650 mg Q6H PRN NGT PAIN AND [place] ELEVATED TEMP Last administered on 02/03/17 17:37; Admin Dose 650 MG; Start 01/13/17 at 23:30 Apixaban (Eliquis) 2.5 mg BID NGT Last administered on 01/30/17 08:18; Admin Dose 2.5 MG; Start 01/13/17 at 21:00; Status Future Hold Acetaminophen/ Hydrocodone Bitart ([place] (5/325)) 1 tab Q6H PRN NGT PAIN LEVEL 4-7; Start 01/13/17 at 23:30 Levetiracetam (Keppra Liquid) 1,000 mg DAILY NGT Last administered on 08:49; Admin Dose 1,000 MG; Start 01/14/17 at 09:00 Meclizine HCl (Antivert) 25 mg TID PRN NGT dizziness; Start 01/13/17 at 20:00 Zolpidem Tartrate (Ambien) 5 mg HS PRN NGT INSOMNIA; Start 01/13/17 at 20:00 Aspirin (Aspirin) 81 mg DAILY NGT Last administered on 01/30/17 08:18; Admin Dose 81 MG; Start 01/14/17 at 09:00; Status Future Hold Docusate Sodium (Colace Liquid Cup) 100 mg BID NGT Last administered on 08:48; Admin Dose 100 MG; Start 01/13/17 at 21:00 Pantoprazole (Protonix Iv) 40 mg DAILY@06 IV Last administered on 02/05/17 06: 48; Admin Dose 40 MG; Start 01/14/17 at 06:00 Amiodarone HCl (Cordarone) 200 mg Q8 NGT Last administered on 02/04/17 21:13; Admin Dose 200 MG; Start 01/17/17 at 14:00 Metoprolol Tartrate (Lopressor) 12.5 mg BID NGT Last administered on 02/04/17 21:13; Admin Dose 12.5 MG; Start 01/24/17 at 21:00 Insulin Aspart (Novolog Insulin Pen) NOVOLOG *MODERATE* ALGORI... Q4 SC Last administered on 02/05/17 08:51; Admin Dose 2 UNIT; Start 01/25/17 at 13:00 Nystatin 5 ml 5 ml Q6 PO Last administered on 02/05/17 01:52; Admin Dose 5 ML ; Start 01/31/17 at 12:00 Norepinephrine 16 mg/Dextrose 500 ml @ 0 mls/hr TITRATE IV ; Start 02/01/17 at 07:00 Cefepime HCl (Maxipime 1gm/50 ml (Pmx)) 50 ml @ 100 mls/hr DAILY IVPB Last administered on 02/05/17 08:48; Admin Dose 100 MLS/HR; Start 02/02/17 at 11:00 Insulin Glargine (Lantus) 40 unit DAILY@20 SC Last administered on 02/04/17 21 :10; Admin Dose 40 UNIT; Start 02/04/17 at 20:00 Tobramycin TOBRAMYCIN PER PHARMACY NOTE XX ; Start 02/04/17 at 20:30 Caspofungin/ Sodium Chloride (Cancidas/NS) 250 ml @ 250 mls/hr Q24H IVPB ; Start 02/05/17 at 22:00 ELTON MARMOLEJO Feb 05, 2017 11:01
--- NOTE | 2017-02-05 11:22 | CONS ---
Date/Time of Note Date/Time of Note DATE: 02/05/17 TIME: 11:19 Assessment/Plan Assessment/Plan Additional Assessment/Plan 1. Atrial fibrillation-Having episodes of PAF with reasonable rate control - well Rx now - stable - off Eliquis now, awaiting PEG 2. Hypotension-borderline and labile - stable 3. Abnormal electrocardiogram with inferolateral T-wave inversions. 4. Respiratory failure-s/p trach placement - CT scan now 5. Nonhealing toe ulceration-vascular following - skin care in place 6. Peripheral arterial disease by arterial ultrasound of the lower extremities this admission- stable, com rx 7. Diabetes mellitus - keep euglycemic. 8. Fevers- on anti-bx - no acute change 9. Positive troponin-downtrended 10.Bradycardia-improved/stable 11.-severe by echo 12.Cardiomyopathy-EF 40-45% by echo/36% by stress with no ischemia but positive scar. EF <30% by echo post arrest 14.Encephalopathy-anoxic 15. s/p cardiopulmonary arrest 01/08 Consultation Date/Type/Reason Admit Date/Time Dec 02, 2016 at 21:01 Initial Consult Date 12/03/16 Type of Consultation: Pulmonary/critical care Referring Provider: VIET PARKER MD 24 HR Interval Summary Free Text/Dictation No acute change - trach with no bleed now - stable. ROS: No fever, no chills, no nausea, no vomiting, no diarrhea/constipation No recent weight changes No chest pain, no PND, no orthopnea No dizziness, blurred vision No thirst, no heat or cold intolerance (per nurse) Exam/Review of Systems Vital Signs Vitals Vital Signs Date Time Temp Pulse Resp B/P Pulse Ox O2 Delivery O2 Flow Rate FiO2 02/05/17 11:03 76 17 100 40 02/05/17 07:00 101/33 Mechanical Ventilator 02/05/17 04:00 98.7 Intake and Output 02/04/17 02/04/17 02/05/17 15:00 23:00 07:00 Intake Total 1640 ml 270 ml 1800 ml Output Total 2520 ml 60 ml 1800 ml Balance -880 ml 210 ml 0 ml Exam General: WN/WD/NAD, AOx 0 HEENT: Unicetric/atraumatic/EOMI (does not follow commands) NECK: trach w/ dry bleed Lymph: no lymphadenopathy HEART: regular with no S3, II/ systolic murmur at apex LUNGS: Coarse sounds ABD: soft, NT, ND, +BS : Intact Neuro: non focal SKIN: chronic changes EXT: trace edema Results Result Diagram: 02/05/17 0502 02/05/17 0502 Results 24 hrs Laboratory Tests Test 02/04/17 12:30 02/04/17 16:00 02/04/17 17:53 02/04/17 21:02 Bedside Glucose 195 271 H 243 H Blood Gas Specimen Source Blood arterial Arterial Blood Date Drawn 02/04/2017 4:38:25 PM Arterial Blood pH (Temp corrected) 7.519 H Arterial Blood pCO2 (Temp correct) 34.7 L Arterial Blood pO2 (Temp corrected) 71.1 L Arterial Blood HCO3 27.6 H Arterial Blood Base Excess 4.7 H Arterial Blood Oxygen Saturation 94.6 L Derek Test ACCEPTAB Arterial Blood Gas Puncture Site Right Radial Arterial Blood Carboxyhemoglobin 0.3 Arterial Blood Methemoglobin 0.1 Blood Gas A-a O2 Differential 246.4 H Oxyhemoglobin Percent 94.2 Total Hemoglobin 9.9 L Blood Gas Temperature 37.0 Blood Gas Respiration Rate 16.0 Blood Gas Actual Respiration Rate 20 Blood Gas Modality VENT - AC FiO2 50.0 Blood Gas Tidal Volume 500.0 Blood Gas Low PEEP Setting 5.0 Blood Gas Notified Whom [place] Blood Gas Notified Time 02/04/2017 4:42:59 PM Test 02/05/17 01:48 02/05/17 05:02 02/05/17 05:39 02/05/17 06:20 Bedside Glucose 206 209 White Blood Count 10.6 Red Blood Count 2.90 L Hemoglobin 8.6 L Hematocrit 26.4 L Mean Corpuscular Volume 91.0 Mean Corpuscular Hemoglobin 29.7 Mean Corpuscular Hemoglobin Concent 32.6 Red Cell Distribution Width 15.9 H Platelet Count 193 Mean Platelet Volume 11.0 H Neutrophils % 81.1 H Lymphocytes % 10.6 L Monocytes % 6.8 Eosinophils % 0.6 Basophils % 0.2 Nucleated Red Blood Cells % 0.0 Neutrophils # 8.6 H Lymphocytes # 1.1 Monocytes # 0.7 Eosinophils # 0.1 Basophils # 0.0 Nucleated Red Blood Cells # 0.0 Sodium Level 138 Potassium Level 4.4 Chloride Level 98 Carbon Dioxide Level 30 Anion Gap 14 Blood Urea Nitrogen 54 H Creatinine 1.98 H Glucose Level 198 Calcium Level 8.5 Lab Scanned Report BLOOD TRANSFUSION Test 02/05/17 07:00 02/05/17 08:40 Blood Gas Specimen Source Blood arterial Arterial Blood Date Drawn 02/05/2017 7:10:33 AM Arterial Blood pH (Temp corrected) 7.532 H Arterial Blood pCO2 (Temp correct) 35.7 Arterial Blood pO2 (Temp corrected) 107.2 H Arterial Blood HCO3 29.3 H Arterial Blood Base Excess 6.3 H Arterial Blood Oxygen Saturation 97.8 Derek Test ACCEPTAB Arterial Blood Gas Puncture Site Right Radial Arterial Blood Carboxyhemoglobin 0.3 Arterial Blood Methemoglobin 0.4 Blood Gas A-a O2 Differential 136.9 H Oxyhemoglobin Percent 97.1 Total Hemoglobin 8.3 L Blood Gas Temperature 37.0 Blood Gas Respiration Rate 16.0 Blood Gas Actual Respiration Rate 17 Blood Gas Modality VENT - AC FiO2 40.0 Blood Gas Tidal Volume 500.0 Blood Gas Low PEEP Setting 5.0 Blood Gas Notified Whom JLD Blood Gas Notified Time 02/05/2017 7:29:15 AM Bedside Glucose 164 Medications Medications Current Medications Ondansetron HCl (Zofran Inj) 4 mg Q6H PRN IV NAUSEA AND/OR VOMITING Last administered on 12/13/16 01:13; Admin Dose 4 MG; Start 12/02/16 at 22:30 Miscellaneous Information 1 ea NOTE XX ; Start 12/02/16 at 23:00 Glucose (Glutose) 15 gm Q15M PRN PO DECREASED GLUCOSE; Start 12/02/16 at 23:00 Glucose (Glutose) 22.5 gm Q15M PRN PO DECREASED GLUCOSE; Start 12/02/16 at 23: 00 Dextrose (D50w Syringe) 25 ml Q15M PRN IV DECREASED GLUCOSE Last administered on 01/26/17 05:21; Admin Dose 25 ML; Start 12/02/16 at 23:00 Dextrose (D50w Syringe) 50 ml Q15M PRN IV DECREASED GLUCOSE Last administered on 01/23/17 04:58; Admin Dose 50 ML; Start 12/02/16 at 23:00 Glucagon (Glucagen) 1 mg Q15M PRN IM DECREASED GLUCOSE; Start 12/02/16 at 23:00 Glucose (Glutose) 15 gm Q15M PRN BUCCAL DECREASED GLUCOSE; Start 12/02/16 at 23 :00 Gabapentin (Neurontin) 800 mg TID PO Last administered on 12/08/16 20:33; Admin Dose 800 MG; Start 12/03/16 at 09:00; Status Future Hold Benazepril HCl (Lotensin) 10 mg DAILY PO Last administered on 12/07/16 08:26; Admin Dose 10 MG; Start 12/04/16 at 09:00; Status Future Hold Acetaminophen (Tylenol Supp) 650 mg Q6H PRN [place] ELEVATED TEMPERATURE Last administered on 01/13/17 20:32; Admin Dose 650 MG; Start 12/09/16 at 17:00 Hydralazine HCl (Apresoline) 10 mg Q6H PRN IV SBP>150mm hg Last administered on 12/19/16 08:50; Admin Dose 10 MG; Start 12/11/16 at 10:30 Morphine Sulfate (morphine) 2 mg Q2H PRN IV PAIN LEVEL 4-7; Start 12/13/16 at 10 :00 Collagenase (Santyl) 1 applic DAILY TOP Last administered on 02/05/17 09:00; Admin Dose 1 APPLIC; Start 01/04/17 at 09:00 Metoprolol Tartrate (Lopressor) 5 mg Q4 PRN IV FOR H.R>110; Start 01/12/17 at 17:30 Acetaminophen (Tylenol Liquid) 650 mg Q6H PRN NGT PAIN AND OR ELEVATED TEMP Last administered on 02/03/17 17:37; Admin Dose 650 MG; Start 01/13/17 at 23:30 Apixaban (Eliquis) 2.5 mg BID NGT Last administered on 01/30/17 08:18; Admin Dose 2.5 MG; Start 01/13/17 at 21:00; Status Future Hold Acetaminophen/ Hydrocodone Bitart ([place] (5/325)) 1 tab Q6H PRN NGT PAIN LEVEL 4-7; Start 01/13/17 at 23:30 Levetiracetam (Keppra Liquid) 1,000 mg DAILY NGT Last administered on 08:49; Admin Dose 1,000 MG; Start 01/14/17 at 09:00 Meclizine HCl (Antivert) 25 mg TID PRN NGT dizziness; Start 01/13/17 at 20:00 Zolpidem Tartrate (Ambien) 5 mg HS PRN NGT INSOMNIA; Start 01/13/17 at 20:00 Aspirin (Aspirin) 81 mg DAILY NGT Last administered on 01/30/17 08:18; Admin Dose 81 MG; Start 01/14/17 at 09:00; Status Future Hold Docusate Sodium (Colace Liquid Cup) 100 mg BID NGT Last administered on 08:48; Admin Dose 100 MG; Start 01/13/17 at 21:00 Pantoprazole (Protonix Iv) 40 mg DAILY@06 IV Last administered on 02/05/17 06: 48; Admin Dose 40 MG; Start 01/14/17 at 06:00 Amiodarone HCl (Cordarone) 200 mg Q8 NGT Last administered on 02/04/17 21:13; Admin Dose 200 MG; Start 01/17/17 at 14:00 Metoprolol Tartrate (Lopressor) 12.5 mg BID NGT Last administered on 02/04/17 21:13; Admin Dose 12.5 MG; Start 01/24/17 at 21:00 Insulin Aspart (Novolog Insulin Pen) NOVOLOG *MODERATE* ALGORI... Q4 SC Last administered on 02/05/17 08:51; Admin Dose 2 UNIT; Start 01/25/17 at 13:00 Nystatin 5 ml 5 ml Q6 PO Last administered on 02/05/17 01:52; Admin Dose 5 ML ; Start 01/31/17 at 12:00 Norepinephrine 16 mg/Dextrose 500 ml @ 0 mls/hr TITRATE IV ; Start 02/01/17 at 07:00 Cefepime HCl (Maxipime 1gm/50 ml (Pmx)) 50 ml @ 100 mls/hr DAILY IVPB Last administered on 02/05/17 08:48; Admin Dose 100 MLS/HR; Start 02/02/17 at 11:00 Insulin Glargine (Lantus) 40 unit DAILY@20 SC Last administered on 02/04/17 21 :10; Admin Dose 40 UNIT; Start 02/04/17 at 20:00 Tobramycin TOBRAMYCIN PER PHARMACY NOTE XX ; Start 02/04/17 at 20:30 Caspofungin/ Sodium Chloride (Cancidas/NS) 250 ml @ 250 mls/hr Q24H IVPB ; Start 02/05/17 at 22:00 DAVE NICOLE MD Feb 05, 2017 11:22
--- NOTE | 2017-02-05 12:35 | CONS ---
Date/Time of Note Date/Time of Note DATE: 02/05/17 TIME: 12:32 Assessment/Plan Assessment/Plan Chief Complaint/Hosp Course - possible recurrent sepsis - recurrent cardiopulmonary arrest on 12/09/2016 and on 01/08/2017 - s/p sepsis due to possible tracheobronchitis/pneumonia - recurrent tracheobronchitis/pneumonia due to pseudomonas - thrush, refractory to nystatin - funguria - bleeding from trach site - s/p recurrent sepsis - 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 Blood cultures from HD catheter on 12/13/2016 are negative to date. 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 MRI on 12/06/2016 and bone scan on showed 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 and left fourth proximal phalanx. superficial swab grew inna only. At present, no e/o persistent infection - recurrent pleural effusion - s/p right pleural effusion s/p thoracentesis with .9L removed on 12/16/2016; ( Note: there is no pleural fluid cx since orders were placed after Right thoracentesis, and Left thoracentesis was not performed on 12/17/16 d/t insufficient fluid) - ARANZA on CKD that progressed to ESRD and started on HD from 12/09/2016 - oliguria - improved - A fib -> PAF - small nonreversible perfusion abnormality in the inferoapical and inferior carver; EF 36% per Lexiscan 12/24/2016 - severe , EF 40-45% per TTE 12/17/16 - DM - Hgb A1c 8.7% - HTN associated with DM - acute encephalopathy with anoxic brain injury - unstageable decubitus ulcer of coccyx, no evidence of infection NOTE: Pt completed 6 weeks (12/03/2016-01/15/2017) of antibiotics to treat 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 and left fourth proximal phalanx ; s/p pip/tazo 12/03/16-01/08/17; linezolid 01/08/17-01/20/17; caspofungin 01/12/17-01/21/17 recommendations: - pending results: blood cultures from HD catheter on 02/02/2017 (negative to date) - continue renally dosed cefepime and IV tobramycin for pseudomonas - continue caspofungin - continue nystatin for thrush - funguria: external condom Molina was changed on 02/03/2017 - wound care of the coccyx and upper back Management d/w [employer] Gamez and Dr. Wilson Critical care time spent: 30 min Problems: Consultation Date/Type/Reason Admit Date/Time Dec 02, 2016 at 21:01 Initial Consult Date 12/03/16 Type of Consultation: Infectious Disease Referring Provider: VIET PARKER MD 24 HR Interval Summary Free Text/Dictation Tmax 101.1 and abx adjusted yesterday evening. Dr. Nichols to replace trach today and plan for PEG in a few days per d/w nursing staff. Unable to perform ROS d/t anoxic encephalopathy. Subjective hx not possible: pt non-verbal, pt critical status Exam/Review of Systems Vital Signs Vitals Vital Signs Date Time Temp Pulse Resp B/P Pulse Ox O2 Delivery O2 Flow Rate FiO2 02/05/17 11:03 76 17 100 40 02/05/17 07:00 101/33 Mechanical Ventilator 02/05/17 04:00 98.7 Intake and Output 02/04/17 02/04/17 02/05/17 15:00 23:00 07:00 Intake Total 1640 ml 270 ml 1800 ml Output Total 2520 ml 60 ml 1800 ml Balance -880 ml 210 ml 0 ml Exam Constitutional: frail, non-verbal, well developed Head: atraumatic, normocephalic Eyes: nl conjunctiva, nl lids ENMT: other (thrush) Neck: other (tracheostomy midline with dried blood) Respiratory: clear to auscultation (anteriorly) Cardiovascular: nl pulses, regular rate and rhythm Gastrointestinal: non-tender, soft Genitourinary - Male: nl penis, nl scrotum, other (Condom catheter in place) Musculoskeletal: nl extremities to inspection Extremities: No edema Neurological: lethargic Skin: nl turgor, other (decub on the coccyx; small scab noted to left great toe -plantar aspect) Results Result Diagram: 02/05/17 0502 02/05/17 0502 Results 24 hrs Laboratory Tests Test 02/04/17 16:00 02/04/17 17:53 02/04/17 21:02 02/05/17 01:48 Blood Gas Specimen Source Blood arterial Arterial Blood Date Drawn 02/04/2017 4:38:25 PM Arterial Blood pH (Temp corrected) 7.519 H Arterial Blood pCO2 (Temp correct) 34.7 L Arterial Blood pO2 (Temp corrected) 71.1 L Arterial Blood HCO3 27.6 H Arterial Blood Base Excess 4.7 H Arterial Blood Oxygen Saturation 94.6 L Derek Test ACCEPTAB Arterial Blood Gas Puncture Site Right Radial Arterial Blood Carboxyhemoglobin 0.3 Arterial Blood Methemoglobin 0.1 Blood Gas A-a O2 Differential 246.4 H Oxyhemoglobin Percent 94.2 Total Hemoglobin 9.9 L Blood Gas Temperature 37.0 Blood Gas Respiration Rate 16.0 Blood Gas Actual Respiration Rate 20 Blood Gas Modality VENT - AC FiO2 50.0 Blood Gas Tidal Volume 500.0 Blood Gas Low PEEP Setting 5.0 Blood Gas Notified Whom [place] Blood Gas Notified Time 02/04/2017 4:42:59 PM Bedside Glucose 271 H 243 H 206 Test 02/05/17 05:02 02/05/17 05:39 02/05/17 06:20 02/05/17 07:00 White Blood Count 10.6 Red Blood Count 2.90 L Hemoglobin 8.6 L Hematocrit 26.4 L Mean Corpuscular Volume 91.0 Mean Corpuscular Hemoglobin 29.7 Mean Corpuscular Hemoglobin Concent 32.6 Red Cell Distribution Width 15.9 H Platelet Count 193 Mean Platelet Volume 11.0 H Neutrophils % 81.1 H Lymphocytes % 10.6 L Monocytes % 6.8 Eosinophils % 0.6 Basophils % 0.2 Nucleated Red Blood Cells % 0.0 Neutrophils # 8.6 H Lymphocytes # 1.1 Monocytes # 0.7 Eosinophils # 0.1 Basophils # 0.0 Nucleated Red Blood Cells # 0.0 Sodium Level 138 Potassium Level 4.4 Chloride Level 98 Carbon Dioxide Level 30 Anion Gap 14 Blood Urea Nitrogen 54 H Creatinine 1.98 H Glucose Level 198 Calcium Level 8.5 Lab Scanned Report BLOOD TRANSFUSION Bedside Glucose 209 Blood Gas Specimen Source Blood arterial Arterial Blood Date Drawn 02/05/2017 7:10:33 AM Arterial Blood pH (Temp corrected) 7.532 H Arterial Blood pCO2 (Temp correct) 35.7 Arterial Blood pO2 (Temp corrected) 107.2 H Arterial Blood HCO3 29.3 H Arterial Blood Base Excess 6.3 H Arterial Blood Oxygen Saturation 97.8 Derek Test ACCEPTAB Arterial Blood Gas Puncture Site Right Radial Arterial Blood Carboxyhemoglobin 0.3 Arterial Blood Methemoglobin 0.4 Blood Gas A-a O2 Differential 136.9 H Oxyhemoglobin Percent 97.1 Total Hemoglobin 8.3 L Blood Gas Temperature 37.0 Blood Gas Respiration Rate 16.0 Blood Gas Actual Respiration Rate 17 Blood Gas Modality VENT - AC FiO2 40.0 Blood Gas Tidal Volume 500.0 Blood Gas Low PEEP Setting 5.0 Blood Gas Notified Whom JLD Blood Gas Notified Time 02/05/2017 7:29:15 AM Test 02/05/17 08:40 02/05/17 12:08 Bedside Glucose 164 213 Medications Medications Current Medications Ondansetron HCl (Zofran Inj) 4 mg Q6H PRN IV NAUSEA AND/OR VOMITING Last administered on 12/13/16 01:13; Admin Dose 4 MG; Start 12/02/16 at 22:30 Miscellaneous Information 1 ea NOTE XX ; Start 12/02/16 at 23:00 Glucose (Glutose) 15 gm Q15M PRN PO DECREASED GLUCOSE; Start 12/02/16 at 23:00 Glucose (Glutose) 22.5 gm Q15M PRN PO DECREASED GLUCOSE; Start 12/02/16 at 23: 00 Dextrose (D50w Syringe) 25 ml Q15M PRN IV DECREASED GLUCOSE Last administered on 01/26/17 05:21; Admin Dose 25 ML; Start 12/02/16 at 23:00 Dextrose (D50w Syringe) 50 ml Q15M PRN IV DECREASED GLUCOSE Last administered on 01/23/17 04:58; Admin Dose 50 ML; Start 12/02/16 at 23:00 Glucagon (Glucagen) 1 mg Q15M PRN IM DECREASED GLUCOSE; Start 12/02/16 at 23:00 Glucose (Glutose) 15 gm Q15M PRN BUCCAL DECREASED GLUCOSE; Start 12/02/16 at 23 :00 Gabapentin (Neurontin) 800 mg TID PO Last administered on 12/08/16 20:33; Admin Dose 800 MG; Start 12/03/16 at 09:00; Status Future Hold Benazepril HCl (Lotensin) 10 mg DAILY PO Last administered on 12/07/16 08:26; Admin Dose 10 MG; Start 12/04/16 at 09:00; Status Future Hold Acetaminophen (Tylenol Supp) 650 mg Q6H PRN [place] ELEVATED TEMPERATURE Last administered on 01/13/17 20:32; Admin Dose 650 MG; Start 12/09/16 at 17:00 Hydralazine HCl (Apresoline) 10 mg Q6H PRN IV SBP>150mm hg Last administered on 12/19/16 08:50; Admin Dose 10 MG; Start 12/11/16 at 10:30 Morphine Sulfate (morphine) 2 mg Q2H PRN IV PAIN LEVEL 4-7; Start 12/13/16 at 10 :00 Collagenase (Santyl) 1 applic DAILY TOP Last administered on 02/05/17 09:00; Admin Dose 1 APPLIC; Start 01/04/17 at 09:00 Metoprolol Tartrate (Lopressor) 5 mg Q4 PRN IV FOR H.R>110; Start 01/12/17 at 17:30 Acetaminophen (Tylenol Liquid) 650 mg Q6H PRN NGT PAIN AND [place] ELEVATED TEMP Last administered on 02/03/17 17:37; Admin Dose 650 MG; Start 01/13/17 at 23:30 Apixaban (Eliquis) 2.5 mg BID NGT Last administered on 01/30/17 08:18; Admin Dose 2.5 MG; Start 01/13/17 at 21:00; Status Future Hold Acetaminophen/ Hydrocodone Bitart ([place] (5/325)) 1 tab Q6H PRN NGT PAIN LEVEL 4-7; Start 01/13/17 at 23:30 Levetiracetam (Keppra Liquid) 1,000 mg DAILY NGT Last administered on 08:49; Admin Dose 1,000 MG; Start 01/14/17 at 09:00 Meclizine HCl (Antivert) 25 mg TID PRN NGT dizziness; Start 01/13/17 at 20:00 Zolpidem Tartrate (Ambien) 5 mg HS PRN NGT INSOMNIA; Start 01/13/17 at 20:00 Aspirin (Aspirin) 81 mg DAILY NGT Last administered on 01/30/17 08:18; Admin Dose 81 MG; Start 01/14/17 at 09:00; Status Future Hold Docusate Sodium (Colace Liquid Cup) 100 mg BID NGT Last administered on 08:48; Admin Dose 100 MG; Start 01/13/17 at 21:00 Pantoprazole (Protonix Iv) 40 mg DAILY@06 IV Last administered on 02/05/17 06: 48; Admin Dose 40 MG; Start 01/14/17 at 06:00 Amiodarone HCl (Cordarone) 200 mg Q8 NGT Last administered on 02/04/17 21:13; Admin Dose 200 MG; Start 01/17/17 at 14:00 Metoprolol Tartrate (Lopressor) 12.5 mg BID NGT Last administered on 02/04/17 21:13; Admin Dose 12.5 MG; Start 01/24/17 at 21:00 Insulin Aspart (Novolog Insulin Pen) NOVOLOG *MODERATE* ALGORI... Q4 SC Last administered on 02/05/17 08:51; Admin Dose 2 UNIT; Start 01/25/17 at 13:00 Nystatin 5 ml 5 ml Q6 PO Last administered on 02/05/17 01:52; Admin Dose 5 ML ; Start 01/31/17 at 12:00 Norepinephrine 16 mg/Dextrose 500 ml @ 0 mls/hr TITRATE IV ; Start 02/01/17 at 07:00 Cefepime HCl (Maxipime 1gm/50 ml (Pmx)) 50 ml @ 100 mls/hr DAILY IVPB Last administered on 02/05/17 08:48; Admin Dose 100 MLS/HR; Start 02/02/17 at 11:00 Insulin Glargine (Lantus) 40 unit DAILY@20 SC Last administered on 02/04/17 21 :10; Admin Dose 40 UNIT; Start 02/04/17 at 20:00 Tobramycin TOBRAMYCIN PER PHARMACY NOTE XX ; Start 02/04/17 at 20:30 Caspofungin/ Sodium Chloride (Cancidas/NS) 250 ml @ 250 mls/hr Q24H IVPB ; Start 02/05/17 at 22:00 Procedures Procedures CXR 02/01/2017: Hypoinflation with mild hazy patchy opacification throughout the right lung. This is partially accentuated by low lung volumes suggesting scattered atelectasis. Underlying airspace disease from infection or edema may also be present. There is no evidence of dense pulmonary consolidation. YUMIKO ALATORRE NP Feb 05, 2017 12:35
--- NOTE | 2017-02-05 13:04 | CONS ---
Date/Time of Note Date/Time of Note DATE: 02/05/17 TIME: 13:02 Assessment/Plan Assessment/Plan Additional Assessment/Plan -S/p cardiopulmonary arrest on 12/09/2016 and on 01/08/2017 - 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 Blood cultures from HD catheter on 12/13/2016 are negative to date. 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 MRI on 12/06/2016 and bone scan on showed 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 and left fourth proximal phalanx. superficial swab grew inna only - s/p right pleural effusion s/p thoracentesis with .9L removed on 12/16/2016 - severe , EF 40-45% per TTE 12/17/16 - DM - Hgb A1c 8.7% - HTN associated with DM Tracheostomy site bleeding Plan: pt had a hypotension during HD today, stopped it immediately, no HD tomorrow, next HD will be on Tuesday s/p Tracheostomy, on ventilator pt will need HD palcement at a unit where they can do a HD for pt with tracheostomy and PEG tube placemen t pt has severe , very labile BP sometimes with HD will continue to follow up for HD need Consultation Date/Type/Reason Admit Date/Time Dec 02, 2016 at 21:01 Initial Consult Date Type of Consultation: NEPHROLOGY Referring Provider: VIET PARKER MD 24 HR Interval Summary Free Text/Dictation [pt went into hypotension today during HD, so it was stoppd immediately Exam/Review of Systems Vital Signs Vitals Vital Signs Date Time Temp Pulse Resp B/P Pulse Ox O2 Delivery O2 Flow Rate FiO2 02/05/17 11:03 76 17 100 40 02/05/17 07:00 101/33 Mechanical Ventilator 02/05/17 04:00 98.7 Intake and Output 02/04/17 02/04/17 02/05/17 15:00 23:00 07:00 Intake Total 1640 ml 270 ml 1800 ml Output Total 2520 ml 60 ml 1800 ml Balance -880 ml 210 ml 0 ml Results Result Diagram: 02/05/17 0502 02/05/17 0502 Results 24 hrs Laboratory Tests Test 02/04/17 16:00 02/04/17 17:53 02/04/17 21:02 02/05/17 01:48 Blood Gas Specimen Source Blood arterial Arterial Blood Date Drawn 02/04/2017 4:38:25 PM Arterial Blood pH (Temp corrected) 7.519 H Arterial Blood pCO2 (Temp correct) 34.7 L Arterial Blood pO2 (Temp corrected) 71.1 L Arterial Blood HCO3 27.6 H Arterial Blood Base Excess 4.7 H Arterial Blood Oxygen Saturation 94.6 L Derek Test ACCEPTAB Arterial Blood Gas Puncture Site Right Radial Arterial Blood Carboxyhemoglobin 0.3 Arterial Blood Methemoglobin 0.1 Blood Gas A-a O2 Differential 246.4 H Oxyhemoglobin Percent 94.2 Total Hemoglobin 9.9 L Blood Gas Temperature 37.0 Blood Gas Respiration Rate 16.0 Blood Gas Actual Respiration Rate 20 Blood Gas Modality VENT - AC FiO2 50.0 Blood Gas Tidal Volume 500.0 Blood Gas Low PEEP Setting 5.0 Blood Gas Notified Whom [place] Blood Gas Notified Time 02/04/2017 4:42:59 PM Bedside Glucose 271 H 243 H 206 Test 02/05/17 05:02 02/05/17 05:39 02/05/17 06:20 02/05/17 07:00 White Blood Count 10.6 Red Blood Count 2.90 L Hemoglobin 8.6 L Hematocrit 26.4 L Mean Corpuscular Volume 91.0 Mean Corpuscular Hemoglobin 29.7 Mean Corpuscular Hemoglobin Concent 32.6 Red Cell Distribution Width 15.9 H Platelet Count 193 Mean Platelet Volume 11.0 H Neutrophils % 81.1 H Lymphocytes % 10.6 L Monocytes % 6.8 Eosinophils % 0.6 Basophils % 0.2 Nucleated Red Blood Cells % 0.0 Neutrophils # 8.6 H Lymphocytes # 1.1 Monocytes # 0.7 Eosinophils # 0.1 Basophils # 0.0 Nucleated Red Blood Cells # 0.0 Sodium Level 138 Potassium Level 4.4 Chloride Level 98 Carbon Dioxide Level 30 Anion Gap 14 Blood Urea Nitrogen 54 H Creatinine 1.98 H Glucose Level 198 Calcium Level 8.5 Lab Scanned Report BLOOD TRANSFUSION Bedside Glucose 209 Blood Gas Specimen Source Blood arterial Arterial Blood Date Drawn 02/05/2017 7:10:33 AM Arterial Blood pH (Temp corrected) 7.532 H Arterial Blood pCO2 (Temp correct) 35.7 Arterial Blood pO2 (Temp corrected) 107.2 H Arterial Blood HCO3 29.3 H Arterial Blood Base Excess 6.3 H Arterial Blood Oxygen Saturation 97.8 Derek Test ACCEPTAB Arterial Blood Gas Puncture Site Right Radial Arterial Blood Carboxyhemoglobin 0.3 Arterial Blood Methemoglobin 0.4 Blood Gas A-a O2 Differential 136.9 H Oxyhemoglobin Percent 97.1 Total Hemoglobin 8.3 L Blood Gas Temperature 37.0 Blood Gas Respiration Rate 16.0 Blood Gas Actual Respiration Rate 17 Blood Gas Modality VENT - AC FiO2 40.0 Blood Gas Tidal Volume 500.0 Blood Gas Low PEEP Setting 5.0 Blood Gas Notified Whom JLD Blood Gas Notified Time 02/05/2017 7:29:15 AM Test 02/05/17 08:40 02/05/17 12:08 Bedside Glucose 164 213 Medications Medications Current Medications Ondansetron HCl (Zofran Inj) 4 mg Q6H PRN IV NAUSEA AND/OR VOMITING Last administered on 12/13/16 01:13; Admin Dose 4 MG; Start 12/02/16 at 22:30 Miscellaneous Information 1 ea NOTE XX ; Start 12/02/16 at 23:00 Glucose (Glutose) 15 gm Q15M PRN PO DECREASED GLUCOSE; Start 12/02/16 at 23:00 Glucose (Glutose) 22.5 gm Q15M PRN PO DECREASED GLUCOSE; Start 12/02/16 at 23: 00 Dextrose (D50w Syringe) 25 ml Q15M PRN IV DECREASED GLUCOSE Last administered on 01/26/17 05:21; Admin Dose 25 ML; Start 12/02/16 at 23:00 Dextrose (D50w Syringe) 50 ml Q15M PRN IV DECREASED GLUCOSE Last administered on 01/23/17 04:58; Admin Dose 50 ML; Start 12/02/16 at 23:00 Glucagon (Glucagen) 1 mg Q15M PRN IM DECREASED GLUCOSE; Start 12/02/16 at 23:00 Glucose (Glutose) 15 gm Q15M PRN BUCCAL DECREASED GLUCOSE; Start 12/02/16 at 23 :00 Gabapentin (Neurontin) 800 mg TID PO Last administered on 12/08/16 20:33; Admin Dose 800 MG; Start 12/03/16 at 09:00; Status Future Hold Benazepril HCl (Lotensin) 10 mg DAILY PO Last administered on 12/07/16 08:26; Admin Dose 10 MG; Start 12/04/16 at 09:00; Status Future Hold Acetaminophen (Tylenol Supp) 650 mg Q6H PRN [place] ELEVATED TEMPERATURE Last administered on 01/13/17 20:32; Admin Dose 650 MG; Start 12/09/16 at 17:00 Hydralazine HCl (Apresoline) 10 mg Q6H PRN IV SBP>150mm hg Last administered on 12/19/16 08:50; Admin Dose 10 MG; Start 12/11/16 at 10:30 Morphine Sulfate (morphine) 2 mg Q2H PRN IV PAIN LEVEL 4-7; Start 12/13/16 at 10 :00 Collagenase (Santyl) 1 applic DAILY TOP Last administered on 02/05/17 09:00; Admin Dose 1 APPLIC; Start 01/04/17 at 09:00 Metoprolol Tartrate (Lopressor) 5 mg Q4 PRN IV FOR H.R>110; Start 01/12/17 at 17:30 Acetaminophen (Tylenol Liquid) 650 mg Q6H PRN NGT PAIN AND OR ELEVATED TEMP Last administered on 02/03/17 17:37; Admin Dose 650 MG; Start 01/13/17 at 23:30 Apixaban (Eliquis) 2.5 mg BID NGT Last administered on 01/30/17 08:18; Admin Dose 2.5 MG; Start 01/13/17 at 21:00; Status Future Hold Acetaminophen/ Hydrocodone Bitart ([place] (5/325)) 1 tab Q6H PRN NGT PAIN LEVEL 4-7; Start 01/13/17 at 23:30 Levetiracetam (Keppra Liquid) 1,000 mg DAILY NGT Last administered on 08:49; Admin Dose 1,000 MG; Start 01/14/17 at 09:00 Meclizine HCl (Antivert) 25 mg TID PRN NGT dizziness; Start 01/13/17 at 20:00 Zolpidem Tartrate (Ambien) 5 mg HS PRN NGT INSOMNIA; Start 01/13/17 at 20:00 Aspirin (Aspirin) 81 mg DAILY NGT Last administered on 01/30/17 08:18; Admin Dose 81 MG; Start 01/14/17 at 09:00; Status Future Hold Docusate Sodium (Colace Liquid Cup) 100 mg BID NGT Last administered on 08:48; Admin Dose 100 MG; Start 01/13/17 at 21:00 Pantoprazole (Protonix Iv) 40 mg DAILY@06 IV Last administered on 02/05/17 06: 48; Admin Dose 40 MG; Start 01/14/17 at 06:00 Amiodarone HCl (Cordarone) 200 mg Q8 NGT Last administered on 02/04/17 21:13; Admin Dose 200 MG; Start 01/17/17 at 14:00 Metoprolol Tartrate (Lopressor) 12.5 mg BID NGT Last administered on 02/04/17 21:13; Admin Dose 12.5 MG; Start 01/24/17 at 21:00 Insulin Aspart (Novolog Insulin Pen) NOVOLOG *MODERATE* ALGORI... Q4 SC Last administered on 02/05/17 12:30; Admin Dose 4 UNIT; Start 01/25/17 at 13:00 Nystatin 5 ml 5 ml Q6 PO Last administered on 02/05/17 12:28; Admin Dose 5 ML ; Start 01/31/17 at 12:00 Norepinephrine 16 mg/Dextrose 500 ml @ 0 mls/hr TITRATE IV ; Start 02/01/17 at 07:00 Cefepime HCl (Maxipime 1gm/50 ml (Pmx)) 50 ml @ 100 mls/hr DAILY IVPB Last administered on 02/05/17 08:48; Admin Dose 100 MLS/HR; Start 02/02/17 at 11:00 Insulin Glargine (Lantus) 40 unit DAILY@20 SC Last administered on 02/04/17 21 :10; Admin Dose 40 UNIT; Start 02/04/17 at 20:00 Tobramycin TOBRAMYCIN PER PHARMACY NOTE XX ; Start 02/04/17 at 20:30 Caspofungin/ Sodium Chloride (Cancidas/NS) 250 ml @ 250 mls/hr Q24H IVPB ; Start 02/05/17 at 22:00 TASHIA MCGARRY MD Feb 05, 2017 13:04
[2017-02-05] MEDS: INSULIN GLARGINE [LANtus] 3 ML PEN SC SCH (20:37)
[2017-02-05] MEDS: CASPOFUNGIN 50 MG in SOD CHLORIDE 0.9% 250 ML IVPB SCH (22:49)
[2017-02-06] VITALS (37 sets, daily range): BP systolic 97–141; BP diastolic 45–66; PULSE 60–72; RESP 0–26
[2017-02-06] MEDS: NYSTATIN SUSP 5 ML CUP PO SCH ×4 (00:56→17:33)
[2017-02-06] MEDS: INSULIN ASPART [NOVOLOG] 3 ML PEN SC SCH ×6 (01:08→21:08)
[2017-02-06] MEDS: ALBUTEROL 18 GM INHALER INH SCH ×4 (01:24→19:13)
[2017-02-06] MEDS: AMIODARONE 200 MG TAB NGT SCH ×3 (05:28→22:03)
[2017-02-06] MEDS: PANTOPRAZOLE 40 MG INJ IV SCH (05:28)
[2017-02-06] MEDS: METOPROLOL 25 MG TAB NGT SCH ×2 (09:00→21:02)
[2017-02-06] MEDS: CEFEPIME 1GM/50 ML (PMX) 50 ML IVPB SCH (09:13)
[2017-02-06] MEDS: LEVETIRACETAM (100 MG/ML) 5ML CUP NGT SCH (09:13)
[2017-02-06] MEDS: DOCUSATE SODIUM 10 MG/ML (10ML CUP) NGT SCH ×2 (09:13→21:01)
[2017-02-06] MEDS: COLLAGENASE 30 GM TUBE TOP SCH (09:14)
--- NOTE | 2017-02-06 09:17 | CONS ---
Date/Time of Note Date/Time of Note DATE: 02/06/17 TIME: 09:17 Assessment/Plan Assessment/Plan Chief Complaint/Hosp Course - possible recurrent sepsis - recurrent cardiopulmonary arrest on 12/09/2016 and on 01/08/2017 - s/p sepsis due to possible tracheobronchitis/pneumonia - recurrent tracheobronchitis/pneumonia due to pseudomonas - thrush, refractory to nystatin - funguria; external condom Molina was changed on 02/03/2017 - bleeding from trach site - s/p recurrent sepsis - 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 Blood cultures from HD catheter on 12/13/2016 are negative to date. 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 MRI on 12/06/2016 and bone scan on showed 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 and left fourth proximal phalanx. superficial swab grew inna only. At present, no e/o persistent infection - recurrent pleural effusion - s/p right pleural effusion s/p thoracentesis with .9L removed on 12/16/2016; ( Note: there is no pleural fluid cx since orders were placed after Right thoracentesis, and Left thoracentesis was not performed on 12/17/16 d/t insufficient fluid) - ARANZA on CKD that progressed to ESRD and started on HD from 12/09/2016 - oliguria - improved - A fib -> PAF - small nonreversible perfusion abnormality in the inferoapical and inferior carver; EF 36% per Lexiscan 12/24/2016 - severe , EF 40-45% per TTE 12/17/16 - DM - Hgb A1c 8.7% - HTN associated with DM - acute encephalopathy with anoxic brain injury - unstageable decubitus ulcer of coccyx, no evidence of infection NOTE: Pt completed 6 weeks (12/03/2016-01/15/2017) of antibiotics to treat 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 and left fourth proximal phalanx ; s/p pip/tazo 12/03/16-01/08/17; linezolid 01/08/17-01/20/17; caspofungin 01/12/17-01/21/17 recommendations: - continue renally dosed cefepime (restarted on 02/02/2017-) and IV tobramycin (-) for pseudomonas - continue caspofungin (02/04/2017-) - continue nystatin for thrush - wound care of the coccyx and upper back Management d/w WET POUR MIXERALINA Mireles and Dr. Wilson Critical care time spent: 35 min Problems: Consultation Date/Type/Reason Admit Date/Time Dec 02, 2016 at 21:01 Initial Consult Date 12/03/16 Type of Consultation: Infectious Disease Referring Provider: VIET PARKER MD 24 HR Interval Summary Free Text/Dictation Trach was replaced yesterday by Dr. Nichols and no bleeding noted. No acute issues. Unable to perform ROS due to anoxic encephalopathy. Subjective hx not possible: pt non-verbal Exam/Review of Systems Vital Signs Vitals Vital Signs Date Time Temp Pulse Resp B/P Pulse Ox O2 Delivery O2 Flow Rate FiO2 02/06/17 07:00 65 19 113/58 100 Mechanical Ventilator Trach Collar 02/06/17 05:42 40 02/06/17 04:00 98.6 Intake and Output 02/05/17 02/05/17 02/06/17 15:00 23:00 07:00 Intake Total 550 ml 215 ml 150 ml Output Total 75 ml 30 ml 350 ml Balance 475 ml 185 ml -200 ml Exam Constitutional: frail, non-verbal, well developed Head: atraumatic, normocephalic Eyes: nl conjunctiva, nl lids ENMT: other (thrush) Neck: other (tracheostomy intact) Respiratory: coarse breath sounds Cardiovascular: nl pulses, regular rate and rhythm Gastrointestinal: non-tender, soft Genitourinary - Male: nl penis, nl scrotum, other (Condom catheter in place) Musculoskeletal: nl extremities to inspection Extremities: No edema Neurological: lethargic Skin: nl turgor, other (decub on the coccyx; small scab noted to left great toe -plantar aspect) Results Result Diagram: 02/05/17 0502 02/05/17 0502 Results 24 hrs Laboratory Tests Test 02/05/17 12:08 02/05/17 17:32 02/05/17 20:31 02/06/17 00:54 Bedside Glucose 213 220 195 166 Test 02/06/17 05:24 Bedside Glucose 167 Medications Medications Current Medications Ondansetron HCl (Zofran Inj) 4 mg Q6H PRN IV NAUSEA AND/OR VOMITING Last administered on 12/13/16 01:13; Admin Dose 4 MG; Start 12/02/16 at 22:30 Miscellaneous Information 1 ea NOTE XX ; Start 12/02/16 at 23:00 Glucose (Glutose) 15 gm Q15M PRN PO DECREASED GLUCOSE; Start 12/02/16 at 23:00 Glucose (Glutose) 22.5 gm Q15M PRN PO DECREASED GLUCOSE; Start 12/02/16 at 23: 00 Dextrose (D50w Syringe) 25 ml Q15M PRN IV DECREASED GLUCOSE Last administered on 01/26/17 05:21; Admin Dose 25 ML; Start 12/02/16 at 23:00 Dextrose (D50w Syringe) 50 ml Q15M PRN IV DECREASED GLUCOSE Last administered on 01/23/17 04:58; Admin Dose 50 ML; Start 12/02/16 at 23:00 Glucagon (Glucagen) 1 mg Q15M PRN IM DECREASED GLUCOSE; Start 12/02/16 at 23:00 Glucose (Glutose) 15 gm Q15M PRN BUCCAL DECREASED GLUCOSE; Start 12/02/16 at 23 :00 Gabapentin (Neurontin) 800 mg TID PO Last administered on 12/08/16 20:33; Admin Dose 800 MG; Start 12/03/16 at 09:00; Status Future Hold Benazepril HCl (Lotensin) 10 mg DAILY PO Last administered on 12/07/16 08:26; Admin Dose 10 MG; Start 12/04/16 at 09:00; Status Future Hold Acetaminophen (Tylenol Supp) 650 mg Q6H PRN [place] ELEVATED TEMPERATURE Last administered on 01/13/17 20:32; Admin Dose 650 MG; Start 12/09/16 at 17:00 Hydralazine HCl (Apresoline) 10 mg Q6H PRN IV SBP>150mm hg Last administered on 12/19/16 08:50; Admin Dose 10 MG; Start 12/11/16 at 10:30 Morphine Sulfate (morphine) 2 mg Q2H PRN IV PAIN LEVEL 4-7; Start 12/13/16 at 10 :00 Collagenase (Santyl) 1 applic DAILY TOP Last administered on 02/06/17 09:14; Admin Dose 1 APPLIC; Start 01/04/17 at 09:00 Metoprolol Tartrate (Lopressor) 5 mg Q4 PRN IV FOR H.R>110; Start 01/12/17 at 17:30 Acetaminophen (Tylenol Liquid) 650 mg Q6H PRN NGT PAIN AND [place] ELEVATED TEMP Last administered on 02/03/17 17:37; Admin Dose 650 MG; Start 01/13/17 at 23:30 Apixaban (Eliquis) 2.5 mg BID NGT Last administered on 01/30/17 08:18; Admin Dose 2.5 MG; Start 01/13/17 at 21:00; Status Future Hold Acetaminophen/ Hydrocodone Bitart ([place] (5/325)) 1 tab Q6H PRN NGT PAIN LEVEL 4-7; Start 01/13/17 at 23:30 Levetiracetam (Keppra Liquid) 1,000 mg DAILY NGT Last administered on 09:13; Admin Dose 1,000 MG; Start 01/14/17 at 09:00 Meclizine HCl (Antivert) 25 mg TID PRN NGT dizziness; Start 01/13/17 at 20:00 Zolpidem Tartrate (Ambien) 5 mg HS PRN NGT INSOMNIA; Start 01/13/17 at 20:00 Aspirin (Aspirin) 81 mg DAILY NGT Last administered on 01/30/17 08:18; Admin Dose 81 MG; Start 01/14/17 at 09:00; Status Future Hold Docusate Sodium (Colace Liquid Cup) 100 mg BID NGT Last administered on 09:13; Admin Dose 100 MG; Start 01/13/17 at 21:00 Pantoprazole (Protonix Iv) 40 mg DAILY@06 IV Last administered on 02/06/17 05: 28; Admin Dose 40 MG; Start 01/14/17 at 06:00 Amiodarone HCl (Cordarone) 200 mg Q8 NGT Last administered on 02/06/17 05:28; Admin Dose 200 MG; Start 01/17/17 at 14:00 Metoprolol Tartrate (Lopressor) 12.5 mg BID NGT Last administered on 02/05/17 20:42; Admin Dose 12.5 MG; Start 01/24/17 at 21:00 Insulin Aspart (Novolog Insulin Pen) NOVOLOG *MODERATE* ALGORI... Q4 SC Last administered on 02/06/17 05:41; Admin Dose 2 UNIT; Start 01/25/17 at 13:00 Nystatin 5 ml 5 ml Q6 PO Last administered on 02/06/17 05:28; Admin Dose 5 ML ; Start 01/31/17 at 12:00 Norepinephrine 16 mg/Dextrose 500 ml @ 0 mls/hr TITRATE IV ; Start 02/01/17 at 07:00 Cefepime HCl (Maxipime 1gm/50 ml (Pmx)) 50 ml @ 100 mls/hr DAILY IVPB Last administered on 02/06/17 09:13; Admin Dose 100 MLS/HR; Start 02/02/17 at 11:00 Insulin Glargine (Lantus) 40 unit DAILY@20 SC Last administered on 02/05/17 20 :37; Admin Dose 40 UNIT; Start 02/04/17 at 20:00 Tobramycin TOBRAMYCIN PER PHARMACY NOTE XX ; Start 02/04/17 at 20:30 Caspofungin/ Sodium Chloride (Cancidas/NS) 250 ml @ 250 mls/hr Q24H IVPB Last administered on 02/05/17 22:49; Admin Dose 250 MLS/HR; Start 02/05/17 at 22:00 YUMIKO ALATORRE NP Feb 06, 2017 09:17 YUMIKO ALATORRE NP Feb 06, 2017 09:17
--- NOTE | 2017-02-06 11:11 | PN ---
Date/Time of Note Date/Time of Note DATE: 02/06/17 TIME: 11:10 Assessment/Plan VTE Prophylaxis VTE Prophylaxis Intervention: other Lines/Catheters IV Catheter Type (from [facility]): permacath Urinary Cath still in place: No Assessment/Plan Chief Complaint/Hosp Course - Possible recurrent sepsis, continue antibiotics per ID Dr. Rollins is following infection disease consultation. Patient is currently on cefepime IV and tobramycin inhalation for Pseudomonas in sputum. - Anemia of blood loss. Continue to monitor H&H, transfuse as needed. - Status post cardiopulmonary arrest on 12/09/2016 and 01/08/2017. Continue ventilatory support. - Anoxic encephalopathy. Continue Keppra. - Status post tracheostomy on 01/23/2017. - Dysphagia. The patient is pending G-tube placement. - End-stage renal disease. Continue hemodialysis per nephrology. - Paroxysmal atrial fibrillation. Eliquis is currently held due to bleeding. - Diabetes mellitus type 2. Continue Lantus and NovoLog with sliding scale coverage with Accu-Cheks q. 4 hours. - Diabetic foot ulcer. Continue current wound care. - Osteomyelitis of the distal phalanx of the great left toe. Completed treatment for antibiotics. Problems: Subjective 24 Hr Interval Summary Free Text/Dictation Patient is sedated and intubated Exam/Review of Systems Vital Signs Vitals Vital Signs Date Time Temp Pulse Resp B/P Pulse Ox O2 Delivery O2 Flow Rate FiO2 02/06/17 08:00 65 02/06/17 08:00 Bag Valve Mask 02/06/17 08:00 40 02/06/17 07:00 19 113/58 100 02/06/17 04:00 98.6 Intake and Output 02/05/17 02/05/17 02/06/17 15:00 23:00 07:00 Intake Total 550 ml 215 ml 150 ml Output Total 75 ml 30 ml 350 ml Balance 475 ml 185 ml -200 ml Exam Constitutional: well developed Head: atraumatic, normocephalic Neck: supple Respiratory: clear to auscultation Cardiovascular: regular rate and rhythm Gastrointestinal: non-tender, soft Extremities: normal pulses Results Result Diagram: 02/05/17 0502 02/05/17 0502 Results 24 hrs Laboratory Tests Test 02/05/17 12:08 02/05/17 17:32 02/05/17 20:31 02/06/17 00:54 Bedside Glucose 213 220 195 166 Test 02/06/17 05:24 02/06/17 09:16 Bedside Glucose 167 160 Medications Medications Current Medications Ondansetron HCl (Zofran Inj) 4 mg Q6H PRN IV NAUSEA AND/OR VOMITING Last administered on 12/13/16 01:13; Admin Dose 4 MG; Start 12/02/16 at 22:30 Miscellaneous Information 1 ea NOTE XX ; Start 12/02/16 at 23:00 Glucose (Glutose) 15 gm Q15M PRN PO DECREASED GLUCOSE; Start 12/02/16 at 23:00 Glucose (Glutose) 22.5 gm Q15M PRN PO DECREASED GLUCOSE; Start 12/02/16 at 23: 00 Dextrose (D50w Syringe) 25 ml Q15M PRN IV DECREASED GLUCOSE Last administered on 01/26/17 05:21; Admin Dose 25 ML; Start 12/02/16 at 23:00 Dextrose (D50w Syringe) 50 ml Q15M PRN IV DECREASED GLUCOSE Last administered on 01/23/17 04:58; Admin Dose 50 ML; Start 12/02/16 at 23:00 Glucagon (Glucagen) 1 mg Q15M PRN IM DECREASED GLUCOSE; Start 12/02/16 at 23:00 Glucose (Glutose) 15 gm Q15M PRN BUCCAL DECREASED GLUCOSE; Start 12/02/16 at 23 :00 Gabapentin (Neurontin) 800 mg TID PO Last administered on 12/08/16 20:33; Admin Dose 800 MG; Start 12/03/16 at 09:00; Status Future Hold Benazepril HCl (Lotensin) 10 mg DAILY PO Last administered on 12/07/16 08:26; Admin Dose 10 MG; Start 12/04/16 at 09:00; Status Future Hold Acetaminophen (Tylenol Supp) 650 mg Q6H PRN [place] ELEVATED TEMPERATURE Last administered on 01/13/17 20:32; Admin Dose 650 MG; Start 12/09/16 at 17:00 Hydralazine HCl (Apresoline) 10 mg Q6H PRN IV SBP>150mm hg Last administered on 12/19/16 08:50; Admin Dose 10 MG; Start 12/11/16 at 10:30 Morphine Sulfate (morphine) 2 mg Q2H PRN IV PAIN LEVEL 4-7; Start 12/13/16 at 10 :00 Collagenase (Santyl) 1 applic DAILY TOP Last administered on 02/06/17 09:14; Admin Dose 1 APPLIC; Start 01/04/17 at 09:00 Metoprolol Tartrate (Lopressor) 5 mg Q4 PRN IV FOR H.R>110; Start 01/12/17 at 17:30 Acetaminophen (Tylenol Liquid) 650 mg Q6H PRN NGT PAIN AND OR ELEVATED TEMP Last administered on 02/03/17 17:37; Admin Dose 650 MG; Start 01/13/17 at 23:30 Apixaban (Eliquis) 2.5 mg BID NGT Last administered on 01/30/17 08:18; Admin Dose 2.5 MG; Start 01/13/17 at 21:00; Status Future Hold Acetaminophen/ Hydrocodone Bitart ([place] (5/325)) 1 tab Q6H PRN NGT PAIN LEVEL 4-7; Start 01/13/17 at 23:30 Levetiracetam (Keppra Liquid) 1,000 mg DAILY NGT Last administered on 09:13; Admin Dose 1,000 MG; Start 01/14/17 at 09:00 Meclizine HCl (Antivert) 25 mg TID PRN NGT dizziness; Start 01/13/17 at 20:00 Zolpidem Tartrate (Ambien) 5 mg HS PRN NGT INSOMNIA; Start 01/13/17 at 20:00 Aspirin (Aspirin) 81 mg DAILY NGT Last administered on 01/30/17 08:18; Admin Dose 81 MG; Start 01/14/17 at 09:00; Status Future Hold Docusate Sodium (Colace Liquid Cup) 100 mg BID NGT Last administered on 09:13; Admin Dose 100 MG; Start 01/13/17 at 21:00 Pantoprazole (Protonix Iv) 40 mg DAILY@06 IV Last administered on 02/06/17 05: 28; Admin Dose 40 MG; Start 01/14/17 at 06:00 Amiodarone HCl (Cordarone) 200 mg Q8 NGT Last administered on 02/06/17 05:28; Admin Dose 200 MG; Start 01/17/17 at 14:00 Metoprolol Tartrate (Lopressor) 12.5 mg BID NGT Last administered on 02/05/17 20:42; Admin Dose 12.5 MG; Start 01/24/17 at 21:00 Insulin Aspart (Novolog Insulin Pen) NOVOLOG *MODERATE* ALGORI... Q4 SC Last administered on 02/06/17 09:20; Admin Dose 2 UNIT; Start 01/25/17 at 13:00 Nystatin 5 ml 5 ml Q6 PO Last administered on 02/06/17 05:28; Admin Dose 5 ML ; Start 01/31/17 at 12:00 Norepinephrine 16 mg/Dextrose 500 ml @ 0 mls/hr TITRATE IV ; Start 02/01/17 at 07:00 Cefepime HCl (Maxipime 1gm/50 ml (Pmx)) 50 ml @ 100 mls/hr DAILY IVPB Last administered on 02/06/17 09:13; Admin Dose 100 MLS/HR; Start 02/02/17 at 11:00 Insulin Glargine (Lantus) 40 unit DAILY@20 SC Last administered on 02/05/17 20 :37; Admin Dose 40 UNIT; Start 02/04/17 at 20:00 Tobramycin TOBRAMYCIN PER PHARMACY NOTE XX ; Start 02/04/17 at 20:30 Caspofungin/ Sodium Chloride (Cancidas/NS) 250 ml @ 250 mls/hr Q24H IVPB Last administered on 02/05/17 22:49; Admin Dose 250 MLS/HR; Start 02/05/17 at 22:00 ELTON MARMOLEJO Feb 06, 2017 11:11
--- NOTE | 2017-02-06 14:19 | CONS ---
Date/Time of Note Date/Time of Note DATE: 02/06/17 TIME: 14:18 Assessment/Plan Assessment/Plan Additional Assessment/Plan 1. Atrial fibrillation-Having episodes of PAF with reasonable rate control - well Rx now - stable - off Eliquis now, awaiting PEG - stable 2. Hypotension-borderline and labile - stable 3. Abnormal electrocardiogram with inferolateral T-wave inversions. 4. Respiratory failure-s/p trach placement - no new bleeding 5. Nonhealing toe ulceration-vascular following - skin care in place 6. Peripheral arterial disease by arterial ultrasound of the lower extremities this admission- stable, com rx 7. Diabetes mellitus - keep euglycemic. 8. Fevers- on anti-bx - no acute change 9. Positive troponin-downtrended 10.Bradycardia-improved/stable 11.-severe by echo 12.Cardiomyopathy-EF 40-45% by echo/36% by stress with no ischemia but positive scar. EF <30% by echo post arrest 14.Encephalopathy-anoxic 15. s/p cardiopulmonary arrest 01/08 Consultation Date/Type/Reason Admit Date/Time Dec 02, 2016 at 21:01 Initial Consult Date 12/03/16 Type of Consultation: Infectious Disease Referring Provider: VIET PARKER MD 24 HR Interval Summary Free Text/Dictation N o[place] eevents - BP stable - awiting dispo per family pos PEG ROS: No fever, no chills, no nausea, no vomiting, no diarrhea/constipation No recent weight changes No chest pain, no PND, no orthopnea No dizziness, blurred vision No thirst, no heat or cold intolerance (per nurse) Exam/Review of Systems Vital Signs Vitals Vital Signs Date Time Temp Pulse Resp B/P Pulse Ox O2 Delivery O2 Flow Rate FiO2 02/06/17 11:00 66 17 111/55 99 Mechanical Ventilator 02/06/17 08:00 98.5 02/06/17 08:00 40 Intake and Output 02/05/17 02/05/17 02/06/17 15:00 23:00 07:00 Intake Total 550 ml 215 ml 150 ml Output Total 75 ml 30 ml 350 ml Balance 475 ml 185 ml -200 ml Exam General: WN/WD/NAD, AOx 0 HEENT: Unicetric/atraumatic/EOMI (does not follow commands) NECK: trach Lymph: no lymphadenopathy HEART: IR IRregular with no S3, II/ systolic murmur at apex LUNGS: Coarse sounds ABD: soft, NT, ND, +BS : Intact Neuro: non focal SKIN: chronic changes EXT: trace edema Results Result Diagram: 02/05/17 0502 02/05/17 0502 Results 24 hrs Laboratory Tests Test 02/05/17 17:32 02/05/17 20:31 02/06/17 00:54 02/06/17 05:24 Bedside Glucose 220 195 166 167 Test 02/06/17 09:16 02/06/17 13:02 Bedside Glucose 160 232 H Medications Medications Current Medications Ondansetron HCl (Zofran Inj) 4 mg Q6H PRN IV NAUSEA AND/OR VOMITING Last administered on 12/13/16 01:13; Admin Dose 4 MG; Start 12/02/16 at 22:30 Miscellaneous Information 1 ea NOTE XX ; Start 12/02/16 at 23:00 Glucose (Glutose) 15 gm Q15M PRN PO DECREASED GLUCOSE; Start 12/02/16 at 23:00 Glucose (Glutose) 22.5 gm Q15M PRN PO DECREASED GLUCOSE; Start 12/02/16 at 23: 00 Dextrose (D50w Syringe) 25 ml Q15M PRN IV DECREASED GLUCOSE Last administered on 01/26/17 05:21; Admin Dose 25 ML; Start 12/02/16 at 23:00 Dextrose (D50w Syringe) 50 ml Q15M PRN IV DECREASED GLUCOSE Last administered on 01/23/17 04:58; Admin Dose 50 ML; Start 12/02/16 at 23:00 Glucagon (Glucagen) 1 mg Q15M PRN IM DECREASED GLUCOSE; Start 12/02/16 at 23:00 Glucose (Glutose) 15 gm Q15M PRN BUCCAL DECREASED GLUCOSE; Start 12/02/16 at 23 :00 Gabapentin (Neurontin) 800 mg TID PO Last administered on 12/08/16 20:33; Admin Dose 800 MG; Start 12/03/16 at 09:00; Status Future Hold Benazepril HCl (Lotensin) 10 mg DAILY PO Last administered on 12/07/16 08:26; Admin Dose 10 MG; Start 12/04/16 at 09:00; Status Future Hold Acetaminophen (Tylenol Supp) 650 mg Q6H PRN [place] ELEVATED TEMPERATURE Last administered on 01/13/17 20:32; Admin Dose 650 MG; Start 12/09/16 at 17:00 Hydralazine HCl (Apresoline) 10 mg Q6H PRN IV SBP>150mm hg Last administered on 12/19/16 08:50; Admin Dose 10 MG; Start 12/11/16 at 10:30 Morphine Sulfate (morphine) 2 mg Q2H PRN IV PAIN LEVEL 4-7; Start 12/13/16 at 10 :00 Collagenase (Santyl) 1 applic DAILY TOP Last administered on 02/06/17 09:14; Admin Dose 1 APPLIC; Start 01/04/17 at 09:00 Metoprolol Tartrate (Lopressor) 5 mg Q4 PRN IV FOR H.R>110; Start 01/12/17 at 17:30 Acetaminophen (Tylenol Liquid) 650 mg Q6H PRN NGT PAIN AND OR ELEVATED TEMP Last administered on 02/03/17 17:37; Admin Dose 650 MG; Start 01/13/17 at 23:30 Apixaban (Eliquis) 2.5 mg BID NGT Last administered on 01/30/17 08:18; Admin Dose 2.5 MG; Start 01/13/17 at 21:00; Status Future Hold Acetaminophen/ Hydrocodone Bitart ([place] (5/325)) 1 tab Q6H PRN NGT PAIN LEVEL 4-7; Start 01/13/17 at 23:30 Levetiracetam (Keppra Liquid) 1,000 mg DAILY NGT Last administered on 09:13; Admin Dose 1,000 MG; Start 01/14/17 at 09:00 Meclizine HCl (Antivert) 25 mg TID PRN NGT dizziness; Start 01/13/17 at 20:00 Zolpidem Tartrate (Ambien) 5 mg HS PRN NGT INSOMNIA; Start 01/13/17 at 20:00 Aspirin (Aspirin) 81 mg DAILY NGT Last administered on 01/30/17 08:18; Admin Dose 81 MG; Start 01/14/17 at 09:00; Status Future Hold Docusate Sodium (Colace Liquid Cup) 100 mg BID NGT Last administered on 09:13; Admin Dose 100 MG; Start 01/13/17 at 21:00 Pantoprazole (Protonix Iv) 40 mg DAILY@06 IV Last administered on 02/06/17 05: 28; Admin Dose 40 MG; Start 01/14/17 at 06:00 Amiodarone HCl (Cordarone) 200 mg Q8 NGT Last administered on 02/06/17 05:28; Admin Dose 200 MG; Start 01/17/17 at 14:00 Metoprolol Tartrate (Lopressor) 12.5 mg BID NGT Last administered on 02/05/17 20:42; Admin Dose 12.5 MG; Start 01/24/17 at 21:00 Insulin Aspart (Novolog Insulin Pen) NOVOLOG *MODERATE* ALGORI... Q4 SC Last administered on 02/06/17 13:03; Admin Dose 6 UNIT; Start 01/25/17 at 13:00 Nystatin 5 ml 5 ml Q6 PO Last administered on 02/06/17 13:00; Admin Dose 5 ML ; Start 01/31/17 at 12:00 Norepinephrine 16 mg/Dextrose 500 ml @ 0 mls/hr TITRATE IV ; Start 02/01/17 at 07:00 Cefepime HCl (Maxipime 1gm/50 ml (Pmx)) 50 ml @ 100 mls/hr DAILY IVPB Last administered on 02/06/17 09:13; Admin Dose 100 MLS/HR; Start 02/02/17 at 11:00 Insulin Glargine (Lantus) 40 unit DAILY@20 SC Last administered on 02/05/17 20 :37; Admin Dose 40 UNIT; Start 02/04/17 at 20:00 Tobramycin TOBRAMYCIN PER PHARMACY NOTE XX ; Start 02/04/17 at 20:30 Caspofungin/ Sodium Chloride (Cancidas/NS) 250 ml @ 250 mls/hr Q24H IVPB Last administered on 02/05/17 22:49; Admin Dose 250 MLS/HR; Start 02/05/17 at 22:00 DAVE NICOLE MD Feb 06, 2017 14:19
--- NOTE | 2017-02-06 14:47 | CONS ---
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 Blood cultures from HD catheter on 12/13/2016 are negative to date. 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 MRI on 12/06/2016 and bone scan on showed 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 and left fourth proximal phalanx. superficial swab grew inna only - s/p right pleural effusion s/p thoracentesis with .9L removed on 12/16/2016 - severe , EF 40-45% per TTE 12/17/16 - DM - Hgb A1c 8.7% - HTN associated with DM Tracheostomy site bleeding Plan: pt had a hypotension during HD yesterday, stopped it immediately, no HD tomorrow , next HD will be on Tuesday s/p Tracheostomy, on ventilator pt will need HD placement at a unit where they can do a HD for pt with tracheostomy and PEG tube placemen t pt has severe , very labile BP sometimes with HD will continue to follow up for HD need Dw Dr Evelina ch Consultation Date/Type/Reason Admit Date/Time Dec 02, 2016 at 21:01 Initial Consult Date 12/08/16 Type of Consultation: Infectious Disease Referring Provider: VIET PARKER MD 24 HR Interval Summary Subjective hx not possible: pt critical Constitutional: requiring IVF, requiring O2 Exam/Review of Systems Vital Signs Vitals Vital Signs Date Time Temp Pulse Resp B/P Pulse Ox O2 Delivery O2 Flow Rate FiO2 02/06/17 11:00 66 17 111/55 99 Mechanical Ventilator 02/06/17 08:00 98.5 02/06/17 08:00 40 Intake and Output 02/05/17 02/05/17 02/06/17 15:00 23:00 07:00 Intake Total 550 ml 215 ml 150 ml Output Total 75 ml 30 ml 350 ml Balance 475 ml 185 ml -200 ml Exam Constitutional: frail, non-verbal, well developed Cardiovascular: nl pulses Gastrointestinal: non-tender, soft Extremities: other Neurological: unresponsive Results Result Diagram: 02/05/17 0502 02/05/17 0502 Results 24 hrs Laboratory Tests Test 02/05/17 17:32 02/05/17 20:31 02/06/17 00:54 02/06/17 05:24 Bedside Glucose 220 195 166 167 Test 02/06/17 09:16 02/06/17 13:02 Bedside Glucose 160 232 H Medications Medications Current Medications Ondansetron HCl (Zofran Inj) 4 mg Q6H PRN IV NAUSEA AND/OR VOMITING Last administered on 12/13/16 01:13; Admin Dose 4 MG; Start 12/02/16 at 22:30 Miscellaneous Information 1 ea NOTE XX ; Start 12/02/16 at 23:00 Glucose (Glutose) 15 gm Q15M PRN PO DECREASED GLUCOSE; Start 12/02/16 at 23:00 Glucose (Glutose) 22.5 gm Q15M PRN PO DECREASED GLUCOSE; Start 12/02/16 at 23: 00 Dextrose (D50w Syringe) 25 ml Q15M PRN IV DECREASED GLUCOSE Last administered on 01/26/17 05:21; Admin Dose 25 ML; Start 12/02/16 at 23:00 Dextrose (D50w Syringe) 50 ml Q15M PRN IV DECREASED GLUCOSE Last administered on 01/23/17 04:58; Admin Dose 50 ML; Start 12/02/16 at 23:00 Glucagon (Glucagen) 1 mg Q15M PRN IM DECREASED GLUCOSE; Start 12/02/16 at 23:00 Glucose (Glutose) 15 gm Q15M PRN BUCCAL DECREASED GLUCOSE; Start 12/02/16 at 23 :00 Gabapentin (Neurontin) 800 mg TID PO Last administered on 12/08/16 20:33; Admin Dose 800 MG; Start 12/03/16 at 09:00; Status Future Hold Benazepril HCl (Lotensin) 10 mg DAILY PO Last administered on 12/07/16 08:26; Admin Dose 10 MG; Start 12/04/16 at 09:00; Status Future Hold Acetaminophen (Tylenol Supp) 650 mg Q6H PRN [place] ELEVATED TEMPERATURE Last administered on 01/13/17 20:32; Admin Dose 650 MG; Start 12/09/16 at 17:00 Hydralazine HCl (Apresoline) 10 mg Q6H PRN IV SBP>150mm hg Last administered on 12/19/16 08:50; Admin Dose 10 MG; Start 12/11/16 at 10:30 Morphine Sulfate (morphine) 2 mg Q2H PRN IV PAIN LEVEL 4-7; Start 12/13/16 at 10 :00 Collagenase (Santyl) 1 applic DAILY TOP Last administered on 02/06/17 09:14; Admin Dose 1 APPLIC; Start 01/04/17 at 09:00 Metoprolol Tartrate (Lopressor) 5 mg Q4 PRN IV FOR H.R>110; Start 01/12/17 at 17:30 Acetaminophen (Tylenol Liquid) 650 mg Q6H PRN NGT PAIN AND [place] ELEVATED TEMP Last administered on 02/03/17 17:37; Admin Dose 650 MG; Start 01/13/17 at 23:30 Apixaban (Eliquis) 2.5 mg BID NGT Last administered on 01/30/17 08:18; Admin Dose 2.5 MG; Start 01/13/17 at 21:00; Status Future Hold Acetaminophen/ Hydrocodone Bitart ([place] (5/325)) 1 tab Q6H PRN NGT PAIN LEVEL 4-7; Start 01/13/17 at 23:30 Levetiracetam (Keppra Liquid) 1,000 mg DAILY NGT Last administered on 09:13; Admin Dose 1,000 MG; Start 01/14/17 at 09:00 Meclizine HCl (Antivert) 25 mg TID PRN NGT dizziness; Start 01/13/17 at 20:00 Zolpidem Tartrate (Ambien) 5 mg HS PRN NGT INSOMNIA; Start 01/13/17 at 20:00 Aspirin (Aspirin) 81 mg DAILY NGT Last administered on 01/30/17 08:18; Admin Dose 81 MG; Start 01/14/17 at 09:00; Status Future Hold Docusate Sodium (Colace Liquid Cup) 100 mg BID NGT Last administered on 09:13; Admin Dose 100 MG; Start 01/13/17 at 21:00 Pantoprazole (Protonix Iv) 40 mg DAILY@06 IV Last administered on 02/06/17 05: 28; Admin Dose 40 MG; Start 01/14/17 at 06:00 Amiodarone HCl (Cordarone) 200 mg Q8 NGT Last administered on 02/06/17 05:28; Admin Dose 200 MG; Start 01/17/17 at 14:00 Metoprolol Tartrate (Lopressor) 12.5 mg BID NGT Last administered on 02/05/17 20:42; Admin Dose 12.5 MG; Start 01/24/17 at 21:00 Insulin Aspart (Novolog Insulin Pen) NOVOLOG *MODERATE* ALGORI... Q4 SC Last administered on 02/06/17 13:03; Admin Dose 6 UNIT; Start 01/25/17 at 13:00 Nystatin 5 ml 5 ml Q6 PO Last administered on 02/06/17 13:00; Admin Dose 5 ML ; Start 01/31/17 at 12:00 Norepinephrine 16 mg/Dextrose 500 ml @ 0 mls/hr TITRATE IV ; Start 02/01/17 at 07:00 Cefepime HCl (Maxipime 1gm/50 ml (Pmx)) 50 ml @ 100 mls/hr DAILY IVPB Last administered on 02/06/17 09:13; Admin Dose 100 MLS/HR; Start 02/02/17 at 11:00 Insulin Glargine (Lantus) 40 unit DAILY@20 SC Last administered on 02/05/17 20 :37; Admin Dose 40 UNIT; Start 02/04/17 at 20:00 Tobramycin TOBRAMYCIN PER PHARMACY NOTE XX ; Start 02/04/17 at 20:30 Caspofungin/ Sodium Chloride (Cancidas/NS) 250 ml @ 250 mls/hr Q24H IVPB Last administered on 02/05/17 22:49; Admin Dose 250 MLS/HR; Start 02/05/17 at 22:00 YULIANA SIMMONS Feb 06, 2017 14:47
[2017-02-06] MEDS: INSULIN GLARGINE [LANtus] 3 ML PEN SC SCH (20:30)
--- NOTE | 2017-02-06 21:42 | PN ---
Date/Time of Note Date/Time of Note DATE: 02/06/17 TIME: 21:41 Assessment/Plan Lines/Catheters IV Catheter Type (from Nrs): permacath [place] in Place (from Nrsg): No Assessment/Plan Problems: (1) Syncope Status: Acute (2) Hyperglycemia Status: Acute (3) Failure of outpatient treatment Status: Acute (4) Diabetes, polyneuropathy (5) Peripheral vascular disease (6) Non-pressure chronic ulcer of other part of left foot with fat layer exposed Assessment/Plan Continue offloading b/l heels. Continue bed cradle. Monitor in house. No surgery recommended at this time. Subjective 24 Hr Interval Summary Patient was seen at bedside. Patient is in no acute distress. Patient is non verbal at this time. Exam/Review of Systems Vital Signs Vitals Vital Signs Date Time Temp Pulse Resp B/P Pulse Ox O2 Delivery O2 Flow Rate FiO2 02/19/17 01:08 75 19 100 50 02/19/17 00:12 98.9 140/65 02/15/17 12:00 Mechanical Ventilator Intake and Output 02/18/17 02/18/17 02/19/17 15:00 23:00 07:00 Intake Total 500 ml 750 ml Output Total 3000 ml 400 ml Balance -2500 ml 350 ml Exam Free Text/Dictation GENERAL: patient was seen at bedside; patient is in no acute distress, laying supine in bed, intubated VASC: pedal pulses weak bilateral feet NEURO: sensation decreased b/l feet DERM: open wounds left foot stable with no drainage and no pus ORTHO: contracted toes noted b/l feet IMAGING: reviewed LABS: reviewed Results Result Diagram: 02/18/17 0553 02/18/17 0553 YEIMI LIZARRAGA DPM Feb 06, 2017 21:42
[2017-02-06] MEDS: CASPOFUNGIN 50 MG in SOD CHLORIDE 0.9% 250 ML IVPB SCH (22:04)
[2017-02-07] VITALS (42 sets, daily range): BP systolic 71–163; BP diastolic 40–114; PULSE 58–93; RESP 4–31
[2017-02-07] MEDS: INSULIN ASPART [NOVOLOG] 3 ML PEN SC SCH ×6 (01:00→21:51)
[2017-02-07] MEDS: NYSTATIN SUSP 5 ML CUP PO SCH ×4 (01:18→18:18)
[2017-02-07] MEDS: ALBUTEROL 18 GM INHALER INH SCH ×4 (01:42→21:18)
[2017-02-07 06:03] LABS: ADD SCAN DIFF NO
[2017-02-07 06:05] LABS: BASOPHILS % 0.1 % (0.0-2.0); EOSINOPHILS # 0.1 10^3/ul (0.0-0.5); HEMATOCRIT 25.8 % (42.0-52.0); HEMOGLOBIN 8.4 g/dl (14.0-18.0); LYMPHOCYTES # 0.8 10^3/ul (0.8-2.9); LYMPHOCYTES % 11.2 % (15.0-51.0); MEAN CORPUSCULAR HEMOGLOBIN 29.5 pg (29.0-33.0); MEAN CORPUSCULAR HGB CONC 32.6 g/dl (32.0-37.0); MEAN CORPUSCULAR VOLUME 90.5 fl (82.0-101.0); MEAN PLATELET VOLUME 10.3 fl (7.4-10.4); MONOCYTE # 0.7 10^3/ul (0.3-0.9); MONOCYTES % 8.9 % (0.0-11.0); NEUTROPHIL # 5.7 10^3/ul (1.6-7.5); NEUTROPHILS % 77.8 % (39.0-77.0); PLATELET COUNT 220 10^3/UL (140-415); RED BLOOD COUNT 2.85 10^6/ul (4.70-6.10); RED CELL DISTRIBUTION WIDTH 15.1 % (11.5-14.5); WHITE BLOOD COUNT 7.3 10^3/ul (4.8-10.8)
[2017-02-07] MEDS: PANTOPRAZOLE 40 MG INJ IV SCH (06:28)
[2017-02-07] MEDS: AMIODARONE 200 MG TAB NGT SCH ×3 (06:29→21:44)
[2017-02-07 06:38] LABS: ALBUMIN 3.6 g/dl (3.3-4.9); ALBUMIN/GLOBULIN RATIO 1.09; BILIRUBIN,INDIRECT 0.1 mg/dl (0-1.1); BILIRUBIN,TOTAL 0.1 mg/dl (0.2-1.3); CALCIUM 8.4 mg/dl (8.4-10.2); CREATININE 1.7 mg/dl (0.61-1.24); POTASSIUM 4.4 mmol/L (3.5-5.1); TOTAL PROTEIN 6.9 g/dl (6.1-8.1)
--- NOTE | 2017-02-07 07:38 | CONS ---
Date/Time of Note Date/Time of Note DATE: 02/07/17 TIME: 07:36 Assessment/Plan Assessment/Plan Additional Assessment/Plan 1. Atrial fibrillation-Having episodes of PAF with reasonable rate control - well Rx now - stable - off Eliquis now, awaiting PEG - stable - awaiting family decision re PG, HD today 2. Hypotension-borderline and labile - stable 3. Abnormal electrocardiogram with inferolateral T-wave inversions. 4. Respiratory failure-s/p trach placement - no new bleeding 5. Nonhealing toe ulceration-vascular following - skin care in place 6. Peripheral arterial disease by arterial ultrasound of the lower extremities this admission- stable, com rx 7. Diabetes mellitus - keep euglycemic. 8. Fevers- on anti-bx - no acute change 9. Positive troponin-downtrended - NO INTERVENTION PLANNED 10.Bradycardia-improved/stable 11.-severe by echo 12.Cardiomyopathy-EF 40-45% by echo/36% by stress with no ischemia but positive scar. EF <30% by echo post arrest 14.Encephalopathy-anoxic 15. s/p cardiopulmonary arrest 01/08 Consultation Date/Type/Reason Admit Date/Time Dec 02, 2016 at 21:01 Initial Consult Date 12/03/16 Type of Consultation: Infectious Disease Referring Provider: VIET PARKER MD 24 HR Interval Summary Free Text/Dictation awaiting family decision re PG, HD today - OK to proceed with PEG if needed from cardiac standpoint ROS: No fever, no chills, no nausea, no vomiting, no diarrhea/constipation No recent weight changes No chest pain, no PND, no orthopnea No dizziness, blurred vision No thirst, no heat or cold intolerance (per nurse - no bleeding) Exam/Review of Systems Vital Signs Vitals Vital Signs Date Time Temp Pulse Resp B/P Pulse Ox O2 Delivery O2 Flow Rate FiO2 02/07/17 05:00 68 16 100 40 02/07/17 02:00 126/60 Mechanical Ventilator 02/07/17 00:00 96.5 Intake and Output 02/06/17 02/06/17 02/07/17 15:00 23:00 07:00 Intake Total 520 ml 610 ml 435 ml Output Total 200 ml 430 ml 240 ml Balance 320 ml 180 ml 195 ml Exam General: WN/WD/NAD, AOx 0 HEENT: Unicetric/atraumatic/EOMI (does not follow commands) NECK: trach Lymph: no lymphadenopathy HEART: regular with no S3, II/ systolic murmur at apex LUNGS: Coarse sounds ABD: soft, NT, ND, +BS : Intact Neuro: non focal SKIN: chronic changes EXT: trace edema Results Result Diagram: 02/07/17 0516 02/07/17 0516 Results 24 hrs Laboratory Tests Test 02/06/17 09:16 02/06/17 13:02 02/06/17 17:35 02/06/17 20:27 Bedside Glucose 160 232 H 201 196 Test 02/06/17 21:05 02/07/17 01:17 02/07/17 05:16 02/07/17 05:24 Bedside Glucose 177 135 163 White Blood Count 7.3 # Red Blood Count 2.85 L Hemoglobin 8.4 L Hematocrit 25.8 L Mean Corpuscular Volume 90.5 Mean Corpuscular Hemoglobin 29.5 Mean Corpuscular Hemoglobin Concent 32.6 Red Cell Distribution Width 15.1 H Platelet Count 220 Mean Platelet Volume 10.3 Neutrophils % 77.8 H Lymphocytes % 11.2 L Monocytes % 8.9 Eosinophils % 1.0 Basophils % 0.1 Nucleated Red Blood Cells % 0.0 Neutrophils # 5.7 Lymphocytes # 0.8 Monocytes # 0.7 Eosinophils # 0.1 Basophils # 0.0 Nucleated Red Blood Cells # 0.0 Sodium Level 144 Potassium Level 4.4 Chloride Level 102 Carbon Dioxide Level 32 H Anion Gap 14 Blood Urea Nitrogen 74 H Creatinine 1.70 H Glucose Level 149 Calcium Level 8.4 Total Bilirubin 0.1 L Direct Bilirubin 0.00 Indirect Bilirubin 0.1 Aspartate Amino Transf (AST/SGOT) 34 Alanine Aminotransferase (ALT/SGPT) 33 Alkaline Phosphatase 112 Total Protein 6.9 Albumin 3.6 Globulin 3.30 H Albumin/Globulin Ratio 1.09 Medications Medications Current Medications Ondansetron HCl (Zofran Inj) 4 mg Q6H PRN IV NAUSEA AND/OR VOMITING Last administered on 12/13/16t 01:13; Admin Dose 4 MG; Start 12/02/16 at 22:30 Miscellaneous Information 1 ea NOTE XX ; Start 12/02/16 at 23:00 Glucose (Glutose) 15 gm Q15M PRN PO DECREASED GLUCOSE; Start 12/02/16 at 23:00 Glucose (Glutose) 22.5 gm Q15M PRN PO DECREASED GLUCOSE; Start 12/02/16 at 23: 00 Dextrose (D50w Syringe) 25 ml Q15M PRN IV DECREASED GLUCOSE Last administered on 01/26/17 05:21; Admin Dose 25 ML; Start 12/02/16 at 23:00 Dextrose (D50w Syringe) 50 ml Q15M PRN IV DECREASED GLUCOSE Last administered on 01/23/17 04:58; Admin Dose 50 ML; Start 12/02/16 at 23:00 Glucagon (Glucagen) 1 mg Q15M PRN IM DECREASED GLUCOSE; Start 12/02/16 at 23:00 Glucose (Glutose) 15 gm Q15M PRN BUCCAL DECREASED GLUCOSE; Start 12/02/16 at 23 :00 Gabapentin (Neurontin) 800 mg TID PO Last administered on 12/08/16 20:33; Admin Dose 800 MG; Start 12/03/16 at 09:00; Status Future Hold Benazepril HCl (Lotensin) 10 mg DAILY PO Last administered on 12/07/16 08:26; Admin Dose 10 MG; Start 12/04/16 at 09:00; Status Future Hold Acetaminophen (Tylenol Supp) 650 mg Q6H PRN [place] ELEVATED TEMPERATURE Last administered on 01/13/17 20:32; Admin Dose 650 MG; Start 12/09/16 at 17:00 Hydralazine HCl (Apresoline) 10 mg Q6H PRN IV SBP>150mm hg Last administered on 12/19/16 08:50; Admin Dose 10 MG; Start 12/11/16 at 10:30 Morphine Sulfate (morphine) 2 mg Q2H PRN IV PAIN LEVEL 4-7; Start 12/13/16 at 10 :00 Collagenase (Santyl) 1 applic DAILY TOP Last administered on 02/06/17 09:14; Admin Dose 1 APPLIC; Start 01/04/17 at 09:00 Metoprolol Tartrate (Lopressor) 5 mg Q4 PRN IV FOR H.R>110; Start 01/12/17 at 17:30 Acetaminophen (Tylenol Liquid) 650 mg Q6H PRN NGT PAIN AND OR ELEVATED TEMP Last administered on 02/03/17 17:37; Admin Dose 650 MG; Start 01/13/17 at 23:30 Apixaban (Eliquis) 2.5 mg BID NGT Last administered on 01/30/17 08:18; Admin Dose 2.5 MG; Start 01/13/17 at 21:00; Status Future Hold Acetaminophen/ Hydrocodone Bitart ([place] (5/325)) 1 tab Q6H PRN NGT PAIN LEVEL 4-7; Start 01/13/17 at 23:30 Levetiracetam (Keppra Liquid) 1,000 mg DAILY NGT Last administered on 09:13; Admin Dose 1,000 MG; Start 01/14/17 at 09:00 Meclizine HCl (Antivert) 25 mg TID PRN NGT dizziness; Start 01/13/17 at 20:00 Zolpidem Tartrate (Ambien) 5 mg HS PRN NGT INSOMNIA; Start 01/13/17 at 20:00 Aspirin (Aspirin) 81 mg DAILY NGT Last administered on 01/30/17 08:18; Admin Dose 81 MG; Start 01/14/17 at 09:00; Status Future Hold Docusate Sodium (Colace Liquid Cup) 100 mg BID NGT Last administered on 21:01; Admin Dose 100 MG; Start 01/13/17 at 21:00 Pantoprazole (Protonix Iv) 40 mg DAILY@06 IV Last administered on 02/07/17 06: 28; Admin Dose 40 MG; Start 01/14/17 at 06:00 Amiodarone HCl (Cordarone) 200 mg Q8 NGT Last administered on 02/07/17 06:29; Admin Dose 200 MG; Start 01/17/17 at 14:00 Metoprolol Tartrate (Lopressor) 12.5 mg BID NGT Last administered on 02/06/17 21:02; Admin Dose 12.5 MG; Start 01/24/17 at 21:00 Insulin Aspart (Novolog Insulin Pen) NOVOLOG *MODERATE* ALGORI... Q4 SC Last administered on 02/07/17 05:27; Admin Dose 2 UNIT; Start 01/25/17 at 13:00 Nystatin 5 ml 5 ml Q6 PO Last administered on 02/07/17 06:28; Admin Dose 5 ML ; Start 01/31/17 at 12:00 Norepinephrine 16 mg/Dextrose 500 ml @ 0 mls/hr TITRATE IV ; Start 02/01/17 at 07:00 Cefepime HCl (Maxipime 1gm/50 ml (Pmx)) 50 ml @ 100 mls/hr DAILY IVPB Last administered on 02/06/17 09:13; Admin Dose 100 MLS/HR; Start 02/02/17 at 11:00 Insulin Glargine (Lantus) 40 unit DAILY@20 SC Last administered on 02/06/17 20 :30; Admin Dose 40 UNIT; Start 02/04/17 at 20:00 Tobramycin TOBRAMYCIN PER PHARMACY NOTE XX ; Start 02/04/17 at 20:30 Caspofungin/ Sodium Chloride (Cancidas/NS) 250 ml @ 250 mls/hr Q24H IVPB Last administered on 02/06/17 22:04; Admin Dose 250 MLS/HR; Start 02/05/17 at 22:00 DAVE NICOLE MD Feb 07, 2017 07:38
[2017-02-07] MEDS: LEVETIRACETAM (100 MG/ML) 5ML CUP NGT SCH (08:43)
[2017-02-07] MEDS: DOCUSATE SODIUM 10 MG/ML (10ML CUP) NGT SCH ×2 (08:43→21:43)
[2017-02-07] MEDS: METOPROLOL 25 MG TAB NGT SCH ×2 (08:44→21:44)
[2017-02-07] MEDS: ALBUMIN HUMAN 25% 100 ML IV PRN (08:44)
--- NOTE | 2017-02-07 10:16 | CONS ---
Date/Time of Note Date/Time of Note DATE: 02/07/17 TIME: 10:14 Assessment/Plan Assessment/Plan Chief Complaint/Hosp Course - possible recurrent sepsis due to pneumonia - recurrent cardiopulmonary arrest on 12/09/2016 and on 01/08/2017 - s/p sepsis due to possible tracheobronchitis/pneumonia - recurrent pneumonia due to pseudomonas - thrush, refractory to nystatin - funguria - bleeding from trach site - s/p recurrent sepsis - 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 Blood cultures from HD catheter on 12/13/2016 are negative to date. 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 MRI on 12/06/2016 and bone scan on showed 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 and left fourth proximal phalanx. superficial swab grew inna only. At present, no e/o persistent infection - recurrent pleural effusion - s/p right pleural effusion s/p thoracentesis with .9L removed on 12/16/2016; ( Note: there is no pleural fluid cx since orders were placed after Right thoracentesis, and Left thoracentesis was not performed on 12/17/16 d/t insufficient fluid) - ARANZA on CKD that progressed to ESRD and started on HD from 12/09/2016 - oliguria - improved - A fib -> PAF - small nonreversible perfusion abnormality in the inferoapical and inferior carver; EF 36% per Lexiscan 12/24/2016 - severe , EF 40-45% per TTE 12/17/16 - DM - Hgb A1c 8.7% - HTN associated with DM - acute encephalopathy with anoxic brain injury - unstageable decubitus ulcer of coccyx, no evidence of infection NOTE: Pt completed 6 weeks (12/03/2016-01/15/2017) of antibiotics to treat 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 and left fourth proximal phalanx ; s/p pip/tazo 12/03/16-01/08/17; linezolid 01/08/17-01/20/17; caspofungin 01/12/17-01/21/17, restarted recommendations: - continue renally dosed cefepime (restarted on 02/02/2017-) and IV tobramycin (-) for pseudomonas - continue empiric caspofungin (02/04/2017-) - continue nystatin for thrush - wound care of the coccyx and upper back management d/w Pt's RN the critical care time I took to care for this Pt today was from 0910 to 0950 Problems: Consultation Date/Type/Reason Admit Date/Time Dec 02, 2016 at 21:01 Initial Consult Date 12/03/16 Type of Consultation: Infectious Disease Referring Provider: VIET PARKER MD 24 HR Interval Summary Subjective hx not possible: pt non-verbal, pt critical, pt critical status Exam/Review of Systems Vital Signs Vitals Vital Signs Date Time Temp Pulse Resp B/P Pulse Ox O2 Delivery O2 Flow Rate FiO2 02/07/17 10:00 87 02/07/17 09:12 16 100 40 02/07/17 07:00 163/75 Mechanical Ventilator 02/07/17 04:00 98.4 Intake and Output 02/06/17 02/06/17 02/07/17 15:00 23:00 07:00 Intake Total 520 ml 610 ml 490 ml Output Total 200 ml 430 ml 270 ml Balance 320 ml 180 ml 220 ml Exam Constitutional: frail, non-verbal Psych: confusion Head: atraumatic, normocephalic Eyes: nl conjunctiva, nl lids ENMT: nl external ears & nose, nl nasal mucosa & septum, other (NGT) Neck: other (trach) Respiratory: crackles/rales Cardiovascular: nl pulses, regular rate and rhythm Gastrointestinal: non-tender, soft Extremities: No edema Neurological: confused, lethargic Skin: rash or lesions (coccygeal wound) Results Result Diagram: 02/07/17 0516 02/07/17 0516 Results 24 hrs Laboratory Tests Test 02/06/17 13:02 02/06/17 17:35 02/06/17 20:27 02/06/17 21:05 Bedside Glucose 232 H 201 196 177 Test 02/07/17 01:17 02/07/17 05:16 02/07/17 05:24 02/07/17 08:51 Bedside Glucose 135 163 162 White Blood Count 7.3 # Red Blood Count 2.85 L Hemoglobin 8.4 L Hematocrit 25.8 L Mean Corpuscular Volume 90.5 Mean Corpuscular Hemoglobin 29.5 Mean Corpuscular Hemoglobin Concent 32.6 Red Cell Distribution Width 15.1 H Platelet Count 220 Mean Platelet Volume 10.3 Neutrophils % 77.8 H Lymphocytes % 11.2 L Monocytes % 8.9 Eosinophils % 1.0 Basophils % 0.1 Nucleated Red Blood Cells % 0.0 Neutrophils # 5.7 Lymphocytes # 0.8 Monocytes # 0.7 Eosinophils # 0.1 Basophils # 0.0 Nucleated Red Blood Cells # 0.0 Sodium Level 144 Potassium Level 4.4 Chloride Level 102 Carbon Dioxide Level 32 H Anion Gap 14 Blood Urea Nitrogen 74 H Creatinine 1.70 H Glucose Level 149 Calcium Level 8.4 Total Bilirubin 0.1 L Direct Bilirubin 0.00 Indirect Bilirubin 0.1 Aspartate Amino Transf (AST/SGOT) 34 Alanine Aminotransferase (ALT/SGPT) 33 Alkaline Phosphatase 112 Total Protein 6.9 Albumin 3.6 Globulin 3.30 H Albumin/Globulin Ratio 1.09 Medications Medications Current Medications Ondansetron HCl (Zofran Inj) 4 mg Q6H PRN IV NAUSEA AND/OR VOMITING Last administered on 12/13/16 01:13; Admin Dose 4 MG; Start 12/02/16 at 22:30 Miscellaneous Information 1 ea NOTE XX ; Start 12/02/16 at 23:00 Glucose (Glutose) 15 gm Q15M PRN PO DECREASED GLUCOSE; Start 12/02/16 at 23:00 Glucose (Glutose) 22.5 gm Q15M PRN PO DECREASED GLUCOSE; Start 12/02/16 at 23: 00 Dextrose (D50w Syringe) 25 ml Q15M PRN IV DECREASED GLUCOSE Last administered on 01/26/17 05:21; Admin Dose 25 ML; Start 12/02/16 at 23:00 Dextrose (D50w Syringe) 50 ml Q15M PRN IV DECREASED GLUCOSE Last administered on 01/23/17 04:58; Admin Dose 50 ML; Start 12/02/16 at 23:00 Glucagon (Glucagen) 1 mg Q15M PRN IM DECREASED GLUCOSE; Start 12/02/16 at 23:00 Glucose (Glutose) 15 gm Q15M PRN BUCCAL DECREASED GLUCOSE; Start 12/02/16 at 23 :00 Gabapentin (Neurontin) 800 mg TID PO Last administered on 12/08/16 20:33; Admin Dose 800 MG; Start 12/03/16 at 09:00; Status Future Hold Benazepril HCl (Lotensin) 10 mg DAILY PO Last administered on 12/07/16 08:26; Admin Dose 10 MG; Start 12/04/16 at 09:00; Status Future Hold Acetaminophen (Tylenol Supp) 650 mg Q6H PRN [place] ELEVATED TEMPERATURE Last administered on 01/13/17 20:32; Admin Dose 650 MG; Start 12/09/16 at 17:00 Hydralazine HCl (Apresoline) 10 mg Q6H PRN IV SBP>150mm hg Last administered on 12/19/16 08:50; Admin Dose 10 MG; Start 12/11/16 at 10:30 Morphine Sulfate (morphine) 2 mg Q2H PRN IV PAIN LEVEL 4-7; Start 12/13/16 at 10 :00 Collagenase (Santyl) 1 applic DAILY TOP Last administered on 02/06/17 09:14; Admin Dose 1 APPLIC; Start 01/04/17 at 09:00 Metoprolol Tartrate (Lopressor) 5 mg Q4 PRN IV FOR H.R>110; Start 01/12/17 at 17:30 Acetaminophen (Tylenol Liquid) 650 mg Q6H PRN NGT PAIN AND OR ELEVATED TEMP Last administered on 02/03/17 17:37; Admin Dose 650 MG; Start 01/13/17 at 23:30 Apixaban (Eliquis) 2.5 mg BID NGT Last administered on 01/30/17 08:18; Admin Dose 2.5 MG; Start 01/13/17 at 21:00; Status Future Hold Acetaminophen/ Hydrocodone Bitart ([place] (5/325)) 1 tab Q6H PRN NGT PAIN LEVEL 4-7; Start 01/13/17 at 23:30 Levetiracetam (Keppra Liquid) 1,000 mg DAILY NGT Last administered on 08:43; Admin Dose 1,000 MG; Start 01/14/17 at 09:00 Meclizine HCl (Antivert) 25 mg TID PRN NGT dizziness; Start 01/13/17 at 20:00 Zolpidem Tartrate (Ambien) 5 mg HS PRN NGT INSOMNIA; Start 01/13/17 at 20:00 Aspirin (Aspirin) 81 mg DAILY NGT Last administered on 01/30/17 08:18; Admin Dose 81 MG; Start 01/14/17 at 09:00; Status Future Hold Docusate Sodium (Colace Liquid Cup) 100 mg BID NGT Last administered on 08:43; Admin Dose 100 MG; Start 01/13/17 at 21:00 Pantoprazole (Protonix Iv) 40 mg DAILY@06 IV Last administered on 02/07/17 06: 28; Admin Dose 40 MG; Start 01/14/17 at 06:00 Amiodarone HCl (Cordarone) 200 mg Q8 NGT Last administered on 02/07/17 06:29; Admin Dose 200 MG; Start 01/17/17 at 14:00 Metoprolol Tartrate (Lopressor) 12.5 mg BID NGT Last administered on 02/06/17 21:02; Admin Dose 12.5 MG; Start 01/24/17 at 21:00 Insulin Aspart (Novolog Insulin Pen) NOVOLOG *MODERATE* ALGORI... Q4 SC Last administered on 02/07/17 08:55; Admin Dose 2 UNIT; Start 01/25/17 at 13:00 Nystatin 5 ml 5 ml Q6 PO Last administered on 02/07/17 06:28; Admin Dose 5 ML ; Start 01/31/17 at 12:00 Norepinephrine 16 mg/Dextrose 500 ml @ 0 mls/hr TITRATE IV ; Start 02/01/17 at 07:00 Cefepime HCl (Maxipime 1gm/50 ml (Pmx)) 50 ml @ 100 mls/hr DAILY IVPB Last administered on 02/06/17 09:13; Admin Dose 100 MLS/HR; Start 02/02/17 at 11:00 Insulin Glargine (Lantus) 40 unit DAILY@20 SC Last administered on 02/06/17 20 :30; Admin Dose 40 UNIT; Start 02/04/17 at 20:00 Tobramycin TOBRAMYCIN PER PHARMACY NOTE XX ; Start 02/04/17 at 20:30 Caspofungin/ Sodium Chloride (Cancidas/NS) 250 ml @ 250 mls/hr Q24H IVPB Last administered on 02/06/17 22:04; Admin Dose 250 MLS/HR; Start 02/05/17 at 22:00 CHRISTY LOPEZ M.D. Feb 07, 2017 10:16
[2017-02-07] MEDS: CEFEPIME 1GM/50 ML (PMX) 50 ML IVPB SCH (10:30)
[2017-02-07] MEDS: COLLAGENASE 30 GM TUBE TOP SCH (10:31)
[2017-02-07] MEDS: TOBRAMYCIN 100 MG in SOD CHLORIDE 0.9% 50 ML IVPB SCH (10:31)
--- NOTE | 2017-02-07 11:35 | CONS ---
Date/Time of Note Date/Time of Note DATE: 02/07/17 TIME: 11:33 Assessment/Plan Assessment/Plan Additional Assessment/Plan Ventilator setting; AC of 16, tidal volume 500, PEEP of 5, 40% FiO2. Assessment recommendations; 1. Patient admitted to ICU for recurrent respiratory failure status post CPR with severe anoxic brain injury. 2. Status post tracheostomy with tracheal insertion site bleeding. However there has been no further bleeding over the last 72 hours. 3. Peripheral vascular disease. 4. Anemia. 5. Renal failure, on hemodialysis. Continue current supportive care. Patient awaiting G-tube placement. Overall prognosis remains poor. Consultation Date/Type/Reason Admit Date/Time Dec 02, 2016 at 21:01 Initial Consult Date 12/03/16 Type of Consultation: Pulmonary/critical care Referring Provider: VIET PARKER MD 24 HR Interval Summary Free Text/Dictation Patient condition remains unchanged. Has remained hemodynamically stable. Remains unresponsive. No further tracheal site bleeding noted. General exam; elderly male, on ventilator via tracheostomy currently in no distress. Remains unresponsive. Exam/Review of Systems Vital Signs Vitals Vital Signs Date Time Temp Pulse Resp B/P Pulse Ox O2 Delivery O2 Flow Rate FiO2 02/07/17 10:25 62 16 02/07/17 09:12 100 40 02/07/17 07:00 163/75 Mechanical Ventilator 02/07/17 04:00 98.4 Intake and Output 02/06/17 02/06/17 02/07/17 15:00 23:00 07:00 Intake Total 520 ml 610 ml 490 ml Output Total 200 ml 430 ml 270 ml Balance 320 ml 180 ml 220 ml Exam HEENT exam is; supple neck, no JVD. No lymphadenopathy. Midline trachea. No thyromegaly. Tracheostomy in place. There is crusted blood around the insertion site.. No active bleeding seen. Patient is edentulous. Chest examination; clear to auscultation. S1-S2 audible, no murmurs. Regular rhythm. Abdomen examination; soft, nondistended. No organomegaly. Bowel sounds audible. Extremity examination; no peripheral edema. PLATFORM WORK[employer] examination; patient remains unresponsive. Results Result Diagram: 02/07/17 0516 02/07/17 0516 Results 24 hrs Laboratory Tests Test 02/06/17 13:02 02/06/17 17:35 02/06/17 20:27 02/06/17 21:05 Bedside Glucose 232 H 201 196 177 Test 02/07/17 01:17 02/07/17 05:16 02/07/17 05:24 02/07/17 08:51 Bedside Glucose 135 163 162 White Blood Count 7.3 # Red Blood Count 2.85 L Hemoglobin 8.4 L Hematocrit 25.8 L Mean Corpuscular Volume 90.5 Mean Corpuscular Hemoglobin 29.5 Mean Corpuscular Hemoglobin Concent 32.6 Red Cell Distribution Width 15.1 H Platelet Count 220 Mean Platelet Volume 10.3 Neutrophils % 77.8 H Lymphocytes % 11.2 L Monocytes % 8.9 Eosinophils % 1.0 Basophils % 0.1 Nucleated Red Blood Cells % 0.0 Neutrophils # 5.7 Lymphocytes # 0.8 Monocytes # 0.7 Eosinophils # 0.1 Basophils # 0.0 Nucleated Red Blood Cells # 0.0 Sodium Level 144 Potassium Level 4.4 Chloride Level 102 Carbon Dioxide Level 32 H Anion Gap 14 Blood Urea Nitrogen 74 H Creatinine 1.70 H Glucose Level 149 Calcium Level 8.4 Total Bilirubin 0.1 L Direct Bilirubin 0.00 Indirect Bilirubin 0.1 Aspartate Amino Transf (AST/SGOT) 34 Alanine Aminotransferase (ALT/SGPT) 33 Alkaline Phosphatase 112 Total Protein 6.9 Albumin 3.6 Globulin 3.30 H Albumin/Globulin Ratio 1.09 Medications Medications Current Medications Ondansetron HCl (Zofran Inj) 4 mg Q6H PRN IV NAUSEA AND/OR VOMITING Last administered on 12/13/16 01:13; Admin Dose 4 MG; Start 12/02/16 at 22:30 Miscellaneous Information 1 ea NOTE XX ; Start 12/02/16 at 23:00 Glucose (Glutose) 15 gm Q15M PRN PO DECREASED GLUCOSE; Start 12/02/16 at 23:00 Glucose (Glutose) 22.5 gm Q15M PRN PO DECREASED GLUCOSE; Start 12/02/16 at 23: 00 Dextrose (D50w Syringe) 25 ml Q15M PRN IV DECREASED GLUCOSE Last administered on 01/26/17 05:21; Admin Dose 25 ML; Start 12/02/16 at 23:00 Dextrose (D50w Syringe) 50 ml Q15M PRN IV DECREASED GLUCOSE Last administered on 01/23/17 04:58; Admin Dose 50 ML; Start 12/02/16 at 23:00 Glucagon (Glucagen) 1 mg Q15M PRN IM DECREASED GLUCOSE; Start 12/02/16 at 23:00 Glucose (Glutose) 15 gm Q15M PRN BUCCAL DECREASED GLUCOSE; Start 12/02/16 at 23 :00 Gabapentin (Neurontin) 800 mg TID PO Last administered on 12/08/16 20:33; Admin Dose 800 MG; Start 12/03/16 at 09:00; Status Future Hold Benazepril HCl (Lotensin) 10 mg DAILY PO Last administered on 12/07/16 08:26; Admin Dose 10 MG; Start 12/04/16 at 09:00; Status Future Hold Acetaminophen (Tylenol Supp) 650 mg Q6H PRN [place] ELEVATED TEMPERATURE Last administered on 01/13/17 20:32; Admin Dose 650 MG; Start 12/09/16 at 17:00 Hydralazine HCl (Apresoline) 10 mg Q6H PRN IV SBP>150mm hg Last administered on 12/19/16 08:50; Admin Dose 10 MG; Start 12/11/16 at 10:30 Morphine Sulfate (morphine) 2 mg Q2H PRN IV PAIN LEVEL 4-7; Start 12/13/16 at 10 :00 Collagenase (Santyl) 1 applic DAILY TOP Last administered on 02/07/17 10:31; Admin Dose 1 APPLIC; Start 01/04/17 at 09:00 Metoprolol Tartrate (Lopressor) 5 mg Q4 PRN IV FOR H.R>110; Start 01/12/17 at 17:30 Acetaminophen (Tylenol Liquid) 650 mg Q6H PRN NGT PAIN AND OR ELEVATED TEMP Last administered on 02/03/17 17:37; Admin Dose 650 MG; Start 01/13/17 at 23:30 Apixaban (Eliquis) 2.5 mg BID NGT Last administered on 01/30/17 08:18; Admin Dose 2.5 MG; Start 01/13/17 at 21:00; Status Future Hold Acetaminophen/ Hydrocodone Bitart ([place] (5/325)) 1 tab Q6H PRN NGT PAIN LEVEL 4-7; Start 01/13/17 at 23:30 Levetiracetam (Keppra Liquid) 1,000 mg DAILY NGT Last administered on 08:43; Admin Dose 1,000 MG; Start 01/14/17 at 09:00 Meclizine HCl (Antivert) 25 mg TID PRN NGT dizziness; Start 01/13/17 at 20:00 Zolpidem Tartrate (Ambien) 5 mg HS PRN NGT INSOMNIA; Start 01/13/17 at 20:00 Aspirin (Aspirin) 81 mg DAILY NGT Last administered on 01/30/17 08:18; Admin Dose 81 MG; Start 01/14/17 at 09:00; Status Future Hold Docusate Sodium (Colace Liquid Cup) 100 mg BID NGT Last administered on 08:43; Admin Dose 100 MG; Start 01/13/17 at 21:00 Pantoprazole (Protonix Iv) 40 mg DAILY@06 IV Last administered on 02/07/17 06: 28; Admin Dose 40 MG; Start 01/14/17 at 06:00 Amiodarone HCl (Cordarone) 200 mg Q8 NGT Last administered on 02/07/17 06:29; Admin Dose 200 MG; Start 01/17/17 at 14:00 Metoprolol Tartrate (Lopressor) 12.5 mg BID NGT Last administered on 02/06/17 21:02; Admin Dose 12.5 MG; Start 01/24/17 at 21:00 Insulin Aspart (Novolog Insulin Pen) NOVOLOG *MODERATE* ALGORI... Q4 SC Last administered on 02/07/17 08:55; Admin Dose 2 UNIT; Start 01/25/17 at 13:00 Nystatin 5 ml 5 ml Q6 PO Last administered on 02/07/17 06:28; Admin Dose 5 ML ; Start 01/31/17 at 12:00 Norepinephrine 16 mg/Dextrose 500 ml @ 0 mls/hr TITRATE IV ; Start 02/01/17 at 07:00 Cefepime HCl (Maxipime 1gm/50 ml (Pmx)) 50 ml @ 100 mls/hr DAILY IVPB Last administered on 02/07/17 10:30; Admin Dose 100 MLS/HR; Start 02/02/17 at 11:00 Insulin Glargine (Lantus) 40 unit DAILY@20 SC Last administered on 02/06/17 20 :30; Admin Dose 40 UNIT; Start 02/04/17 at 20:00 Tobramycin TOBRAMYCIN PER PHARMACY NOTE XX ; Start 02/04/17 at 20:30 Caspofungin/ Sodium Chloride (Cancidas/NS) 250 ml @ 250 mls/hr Q24H IVPB Last administered on 02/06/17 22:04; Admin Dose 250 MLS/HR; Start 02/05/17 at 22:00 IKE MULLER Feb 07, 2017 11:35
--- NOTE | 2017-02-07 17:47 | CONS ---
Date/Time of Note Date/Time of Note DATE: 02/07/17 TIME: 17:46 Assessment/Plan Assessment/Plan Additional Assessment/Plan -S/p cardiopulmonary arrest on 12/09/2016 and on 01/08/2017 - 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 Blood cultures from HD catheter on 12/13/2016 are negative to date. 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 MRI on 12/06/2016 and bone scan on showed 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 and left fourth proximal phalanx. superficial swab grew inna only - s/p right pleural effusion s/p thoracentesis with .9L removed on 12/16/2016 - severe , EF 40-45% per TTE 12/17/16 - DM - Hgb A1c 8.7% - HTN associated with DM Tracheostomy site bleeding Plan: HD today s/p Tracheostomy, on ventilator pt will need HD palcement at a unit where they can do a HD for pt with tracheostomy and PEG tube placemen t pt has severe , very labile BP sometimes with HD will continue to follow up for HD need Consultation Date/Type/Reason Admit Date/Time Dec 02, 2016 at 21:01 Initial Consult Date Type of Consultation: NEPHROLOGY Referring Provider: VIET PARKER MD 24 HR Interval Summary Free Text/Dictation Plan for HD today, transfer to telemetry today Exam/Review of Systems Vital Signs Vitals Vital Signs Date Time Temp Pulse Resp B/P Pulse Ox O2 Delivery O2 Flow Rate FiO2 02/07/17 17:37 76 02/07/17 15:17 18 95 40 02/07/17 14:00 95/41 Mechanical Ventilator 02/07/17 12:00 99.7 Intake and Output 02/06/17 02/06/17 02/07/17 14:59 22:59 06:59 Intake Total 520 ml 610 ml 490 ml Output Total 200 ml 400 ml 270 ml Balance 320 ml 210 ml 220 ml Exam Constitutional: frail, non-verbal Neck: + tracheostomy Respiratory: crackles/rales Cardiovascular: nl pulses, regular rate and rhythm Gastrointestinal: non-tender, soft Musculoskeletal: nl extremities to inspection Extremities: No edema Neurological: confused, lethargic Skin: other (unstageable ulcer on coccyx) Results Result Diagram: 02/07/17 0516 02/07/17 0516 Results 24 hrs Laboratory Tests Test 02/06/17 20:27 02/06/17 21:05 02/07/17 01:17 02/07/17 05:16 Bedside Glucose 196 177 135 White Blood Count 7.3 # Red Blood Count 2.85 L Hemoglobin 8.4 L Hematocrit 25.8 L Mean Corpuscular Volume 90.5 Mean Corpuscular Hemoglobin 29.5 Mean Corpuscular Hemoglobin Concent 32.6 Red Cell Distribution Width 15.1 H Platelet Count 220 Mean Platelet Volume 10.3 Neutrophils % 77.8 H Lymphocytes % 11.2 L Monocytes % 8.9 Eosinophils % 1.0 Basophils % 0.1 Nucleated Red Blood Cells % 0.0 Neutrophils # 5.7 Lymphocytes # 0.8 Monocytes # 0.7 Eosinophils # 0.1 Basophils # 0.0 Nucleated Red Blood Cells # 0.0 Sodium Level 144 Potassium Level 4.4 Chloride Level 102 Carbon Dioxide Level 32 H Anion Gap 14 Blood Urea Nitrogen 74 H Creatinine 1.70 H Glucose Level 149 Calcium Level 8.4 Total Bilirubin 0.1 L Direct Bilirubin 0.00 Indirect Bilirubin 0.1 Aspartate Amino Transf (AST/SGOT) 34 Alanine Aminotransferase (ALT/SGPT) 33 Alkaline Phosphatase 112 Total Protein 6.9 Albumin 3.6 Globulin 3.30 H Albumin/Globulin Ratio 1.09 Test 02/07/17 05:24 02/07/17 08:51 02/07/17 13:16 02/07/17 17:26 Bedside Glucose 163 162 220 243 H Medications Medications Current Medications Ondansetron HCl (Zofran Inj) 4 mg Q6H PRN IV NAUSEA AND/OR VOMITING Last administered on 12/13/16 01:13; Admin Dose 4 MG; Start 12/02/16 at 22:30 Miscellaneous Information 1 ea NOTE XX ; Start 12/02/16 at 23:00 Glucose (Glutose) 15 gm Q15M PRN PO DECREASED GLUCOSE; Start 12/02/16 at 23:00 Glucose (Glutose) 22.5 gm Q15M PRN PO DECREASED GLUCOSE; Start 12/02/16 at 23: 00 Dextrose (D50w Syringe) 25 ml Q15M PRN IV DECREASED GLUCOSE Last administered on 01/26/17 05:21; Admin Dose 25 ML; Start 12/02/16 at 23:00 Dextrose (D50w Syringe) 50 ml Q15M PRN IV DECREASED GLUCOSE Last administered on 01/23/17 04:58; Admin Dose 50 ML; Start 12/02/16 at 23:00 Glucagon (Glucagen) 1 mg Q15M PRN IM DECREASED GLUCOSE; Start 12/02/16 at 23:00 Glucose (Glutose) 15 gm Q15M PRN BUCCAL DECREASED GLUCOSE; Start 12/02/16 at 23 :00 Acetaminophen (Tylenol Supp) 650 mg Q6H PRN [place] ELEVATED TEMPERATURE Last administered on 01/13/17 20:32; Admin Dose 650 MG; Start 12/09/16 at 17:00 Hydralazine HCl (Apresoline) 10 mg Q6H PRN IV SBP>150mm hg Last administered on 12/19/16 08:50; Admin Dose 10 MG; Start 12/11/16 at 10:30 Morphine Sulfate (morphine) 2 mg Q2H PRN IV PAIN LEVEL 4-7; Start 12/13/16 at 10 :00 Collagenase (Santyl) 1 applic DAILY TOP Last administered on 02/07/17 10:31; Admin Dose 1 APPLIC; Start 01/04/17 at 09:00 Metoprolol Tartrate (Lopressor) 5 mg Q4 PRN IV FOR H.R>110; Start 01/12/17 at 17:30 Acetaminophen (Tylenol Liquid) 650 mg Q6H PRN NGT PAIN AND OR ELEVATED TEMP Last administered on 02/03/17 17:37; Admin Dose 650 MG; Start 01/13/17 at 23:30 Acetaminophen/ Hydrocodone Bitart ([place] (5/325)) 1 tab Q6H PRN NGT PAIN LEVEL 4-7; Start 01/13/17 at 23:30 Levetiracetam (Keppra Liquid) 1,000 mg DAILY NGT Last administered on 08:43; Admin Dose 1,000 MG; Start 01/14/17 at 09:00 Meclizine HCl (Antivert) 25 mg TID PRN NGT dizziness; Start 01/13/17 at 20:00 Zolpidem Tartrate (Ambien) 5 mg HS PRN NGT INSOMNIA; Start 01/13/17 at 20:00 Docusate Sodium (Colace Liquid Cup) 100 mg BID NGT Last administered on 08:43; Admin Dose 100 MG; Start 01/13/17 at 21:00 Pantoprazole (Protonix Iv) 40 mg DAILY@06 IV Last administered on 02/07/17 06: 28; Admin Dose 40 MG; Start 01/14/17 at 06:00 Amiodarone HCl (Cordarone) 200 mg Q8 NGT Last administered on 02/07/17 14:43; Admin Dose 200 MG; Start 01/17/17 at 14:00 Metoprolol Tartrate (Lopressor) 12.5 mg BID NGT Last administered on 02/06/17 21:02; Admin Dose 12.5 MG; Start 01/24/17 at 21:00 Insulin Aspart (Novolog Insulin Pen) NOVOLOG *MODERATE* ALGORI... Q4 SC Last administered on 02/07/17 13:20; Admin Dose 4 UNIT; Start 01/25/17 at 13:00 Nystatin 5 ml 5 ml Q6 PO Last administered on 02/07/17 13:23; Admin Dose 5 ML ; Start 01/31/17 at 12:00 Cefepime HCl (Maxipime 1gm/50 ml (Pmx)) 50 ml @ 100 mls/hr DAILY IVPB Last administered on 02/07/17 10:30; Admin Dose 100 MLS/HR; Start 02/02/17 at 11:00 Insulin Glargine (Lantus) 40 unit DAILY@20 SC Last administered on 02/06/17 20 :30; Admin Dose 40 UNIT; Start 02/04/17 at 20:00 Tobramycin TOBRAMYCIN PER PHARMACY NOTE XX ; Start 02/04/17 at 20:30 Caspofungin/ Sodium Chloride (Cancidas/NS) 250 ml @ 250 mls/hr Q24H IVPB Last administered on 02/06/17t 22:04; Admin Dose 250 MLS/HR; Start 02/05/17 at 22:00 TASHIA MCGARRY MD Feb 07, 2017 17:47
[2017-02-07] MEDS: INSULIN GLARGINE [LANtus] 3 ML PEN SC SCH (21:50)
[2017-02-07] MEDS: CASPOFUNGIN 50 MG in SOD CHLORIDE 0.9% 250 ML IVPB SCH (22:58)
[2017-02-08] VITALS (23 sets, daily range): BP systolic 117–154; BP diastolic 57–72; PULSE 59–72; RESP 16–20
[2017-02-08] MEDS: NYSTATIN SUSP 5 ML CUP PO SCH ×4 (00:53→18:05)
[2017-02-08] MEDS: ALBUTEROL 18 GM INHALER INH SCH ×4 (01:15→20:37)
[2017-02-08] MEDS: INSULIN ASPART [NOVOLOG] 3 ML PEN SC SCH ×6 (01:36→20:50)
--- NOTE | 2017-02-08 03:19 | PN ---
DATE: 02/07/2017 LOCATION: ICU SUBJECTIVE: Follow up on tracheal site bleeding, cardiopulmonary arrest, anoxic encephalopathy, pos sible recurrent sepsis due to pneumonia, diabetes, aortic stenosis, systolic dysfunction, acute on c hronic injury on chronic kidney disease now progressed to end-stage renal disease. The patient is c urrently on hemodialysis. Peripheral vascular disease. The patient is breathing comfortably on the vent. Remains nonverbal. Tracheostomy site bleeding has resolved. The patient has stable hemoglo bin in the past 48 hours. The patient continues to have low-grade temperature. No reported vomitin g. No reported seizure clinically. PHYSICAL EXAMINATION: GENERAL: The patient is nonverbal. VITAL SIGNS: Temperature 99.7, pulse 85, respirations 19, blood pressure 99/60, O2 saturation 99% o n the vent, FIO2 of 40%. HEENT: No eye discharge or redness. Nose and ears normal externally. NECK: Tracheostomy in place. No obvious mass. CHEST: Revealed diminished air entry at bases. No use of accessory muscles. CARDIOVASCULAR: III/ ejection systolic murmur heard. ABDOMEN: Soft, nondistended, nontender. G-tube in place. EXTREMITIES: No leg edema. No clubbing or cyanosis. NEUROLOGIC: The patient is nonverbal. LABORATORY DATA: Done today WBC 7.3, hemoglobin 8.4, platelets 220. Sodium 144, potassium 4.5, BUN 74, creatinine 1.7, glucose 149. AST 34, ALT 33, alkaline phosphatase 112, albumin 3.6. IMPRESSION: 1. Recent pneumonia. Continue tobramycin and cefepime. 2. History of Odilia glabrata fungemia. Continue caspofungin. 3. Cardiopulmonary arrest. Continue vent support and wean as tolerated. Patient is currently vent dependent. 4. Anoxic encephalopathy. No hope for any meaningful recovery. 5. Acute on chronic kidney disease, now end-stage renal disease. Continue hemodialysis as per Dr. Remy. 6. Diabetes mellitus. Continue Lantus and sliding scale insulin. 7. Hypertension. Continue Lopressor 8. Paroxysmal atrial fibrillation. The patient has remained in sinus rhythm. No anticoagulation o r antiplatelet due to severe tracheal site bleeding. 9. Peripheral vascular disease. I spoke with the patient's son, Larry, and poor prognosis for any meaningful recovery explained to h im. He reported that the patient's wants to proceed with a G-tube placement at this time. I s poke with Dr. Smith and the patient will be scheduled for G-tube placement. The patient remains to samantha care. Total critical care time spent 30 minutes. Dictated By: VIET GARCIA/MICHELLE Conf#: [id number] DID#: [id number]
[2017-02-08] MEDS: PANTOPRAZOLE 40 MG INJ IV SCH (05:37)
[2017-02-08] MEDS: AMIODARONE 200 MG TAB NGT SCH ×3 (05:38→20:56)
[2017-02-08] MEDS: METOPROLOL 25 MG TAB NGT SCH ×3 (08:12→20:56)
[2017-02-08] MEDS: DOCUSATE SODIUM 10 MG/ML (10ML CUP) NGT SCH ×3 (08:13→20:58)
[2017-02-08] MEDS: LEVETIRACETAM (100 MG/ML) 5ML CUP NGT SCH (08:13)
[2017-02-08] MEDS: CEFEPIME 1GM/50 ML (PMX) 50 ML IVPB SCH (08:13)
[2017-02-08] MEDS ORDERED: PROPOFOL 20 ML ONE (13:15)
--- NOTE | 2017-02-08 13:19 | CONS ---
Date/Time of Note Date/Time of Note DATE: 02/08/17 TIME: 13:14 Assessment/Plan Assessment/Plan Chief Complaint/Hosp Course IMPRESSION: 1. Atrial fibrillation-Having episodes of PAF with reasonable rate control 2. Hypotension-borderline and labile 3. Abnormal electrocardiogram with inferolateral T-wave inversions. 4. Respiratory failure-s/p trach placement 5. Nonhealing toe ulceration-vascular following 6. Peripheral arterial disease by arterial ultrasound of the lower extremities this admission. 7. Diabetes mellitus. 8. Fevers. 9. Positive troponin-downtrended 10.Bradycardia-improved/stable 11.-severe by echo 12.Cardiomyopathy-EF 40-45% by echo/36% by stress with no ischemia but positive scar. EF <30% by echo post arrest 14.Encephalopathy-anoxic 15. s/p cardiopulmonary arrest 01/08 Recc: -Tele -serial ecg -HD for volume removal as tolerated -ASA held due to initial trach site bleeding-? ability to resume -eliquis held in anticipation of G tube revision today and for initial trach site bleeding -Continue PO amio in attempt to maintain SR -Continue BB as tolerated only following HR/BP closely -Will hold on afterload reduction given severe and thus fixed afterload at valve orifice Problems: Consultation Date/Type/Reason Admit Date/Time Dec 02, 2016 at 21:01 Initial Consult Date 12/03/16 Type of Consultation: cardiology Reason for Consultation PAF//cardiomyopathy Referring Provider: VIET PARKER MD Exam/Review of Systems Vital Signs Vitals Vital Signs Date Time Temp Pulse Resp B/P Pulse Ox O2 Delivery O2 Flow Rate FiO2 02/08/17 12:26 60 02/08/17 11:10 16 99 40 02/08/17 11:05 98.8 117/57 02/07/17 18:08 5.0 02/07/17 14:00 Mechanical Ventilator Intake and Output 02/07/17 02/07/17 02/08/17 15:00 23:00 07:00 Intake Total 995 ml 600 ml Output Total 2440 ml 400 ml Balance -1445 ml 200 ml Exam Review of Systems: CONSTITUTIONAL: No fevers, chills. PULMONARY: trached CARDIOVASCULAR: No chest pain/palpitations GASTROINTESTINAL: No nausea/vomiting. GENITOURINARY: No hematuria/dysuria. MUSCULOSKELETAL: No obvious myagias/arthalgias. PSYCHIATRIC: The patient denies depression. NEUROLOGIC: lethargic Constitutional: other (sleeping) Head: normocephalic ENMT: mucosa pink and moist Neck: other (trach in place), supple Cardiovascular: regular rate and rhythm Gastrointestinal: non-tender, soft Musculoskeletal: muscle tone (weakness) Extremities: other (No focal deficits) Results Result Diagram: 02/07/17 0516 02/07/17 0516 Results 24 hrs Laboratory Tests Test 02/07/17 13:16 02/07/17 17:26 02/07/17 21:35 02/08/17 01:30 Bedside Glucose 220 243 H 225 H 151 Test 02/08/17 05:38 02/08/17 09:19 Bedside Glucose 122 113 Medications Medications Current Medications Ondansetron HCl (Zofran Inj) 4 mg Q6H PRN IV NAUSEA AND/OR VOMITING Last administered on 12/13/16 01:13; Admin Dose 4 MG; Start 12/02/16 at 22:30 Miscellaneous Information 1 ea NOTE XX ; Start 12/02/16 at 23:00 Glucose (Glutose) 15 gm Q15M PRN PO DECREASED GLUCOSE; Start 12/02/16 at 23:00 Glucose (Glutose) 22.5 gm Q15M PRN PO DECREASED GLUCOSE; Start 12/02/16 at 23: 00 Dextrose (D50w Syringe) 25 ml Q15M PRN IV DECREASED GLUCOSE Last administered on 01/26/17 05:21; Admin Dose 25 ML; Start 12/02/16 at 23:00 Dextrose (D50w Syringe) 50 ml Q15M PRN IV DECREASED GLUCOSE Last administered on 01/23/17 04:58; Admin Dose 50 ML; Start 12/02/16 at 23:00 Glucagon (Glucagen) 1 mg Q15M PRN IM DECREASED GLUCOSE; Start 12/02/16 at 23:00 Glucose (Glutose) 15 gm Q15M PRN BUCCAL DECREASED GLUCOSE; Start 12/02/16 at 23 :00 Acetaminophen (Tylenol Supp) 650 mg Q6H PRN [place] ELEVATED TEMPERATURE Last administered on 01/13/17 20:32; Admin Dose 650 MG; Start 12/09/16 at 17:00 Hydralazine HCl (Apresoline) 10 mg Q6H PRN IV SBP>150mm hg Last administered on 12/19/16 08:50; Admin Dose 10 MG; Start 12/11/16 at 10:30 Morphine Sulfate (morphine) 2 mg Q2H PRN IV PAIN LEVEL 4-7; Start 12/13/16 at 10 :00 Collagenase (Santyl) 1 applic DAILY TOP Last administered on 02/07/17 10:31; Admin Dose 1 APPLIC; Start 01/04/17 at 09:00 Metoprolol Tartrate (Lopressor) 5 mg Q4 PRN IV FOR H.R>110; Start 01/12/17 at 17:30 Acetaminophen (Tylenol Liquid) 650 mg Q6H PRN NGT PAIN AND OR ELEVATED TEMP Last administered on 02/03/17 17:37; Admin Dose 650 MG; Start 01/13/17 at 23:30 Acetaminophen/ Hydrocodone Bitart ([place] (5/325)) 1 tab Q6H PRN NGT PAIN LEVEL 4-7; Start 01/13/17 at 23:30 Levetiracetam (Keppra Liquid) 1,000 mg DAILY NGT Last administered on 08:13; Admin Dose 1,000 MG; Start 01/14/17 at 09:00 Meclizine HCl (Antivert) 25 mg TID PRN NGT dizziness; Start 01/13/17 at 20:00 Zolpidem Tartrate (Ambien) 5 mg HS PRN NGT INSOMNIA; Start 01/13/17 at 20:00 Docusate Sodium (Colace Liquid Cup) 100 mg BID NGT Last administered on 08:13; Admin Dose 100 MG; Start 01/13/17 at 21:00 Pantoprazole (Protonix Iv) 40 mg DAILY@06 IV Last administered on 02/08/17 05: 37; Admin Dose 40 MG; Start 01/14/17 at 06:00 Amiodarone HCl (Cordarone) 200 mg Q8 NGT Last administered on 02/08/17 05:38; Admin Dose 200 MG; Start 01/17/17 at 14:00 Metoprolol Tartrate (Lopressor) 12.5 mg BID NGT Last administered on 02/08/17 08:12; Admin Dose 12.5 MG; Start 01/24/17 at 21:00 Insulin Aspart (Novolog Insulin Pen) NOVOLOG *MODERATE* ALGORI... Q4 SC Last administered on 02/08/17 01:36; Admin Dose 2 UNIT; Start 01/25/17 at 13:00 Nystatin 5 ml 5 ml Q6 PO Last administered on 02/08/17 05:37; Admin Dose 5 ML ; Start 01/31/17 at 12:00 Cefepime HCl (Maxipime 1gm/50 ml (Pmx)) 50 ml @ 100 mls/hr DAILY IVPB Last administered on 02/08/17 08:13; Admin Dose 100 MLS/HR; Start 02/02/17 at 11:00 Insulin Glargine (Lantus) 40 unit DAILY@20 SC Last administered on 02/07/17 21 :50; Admin Dose 40 UNIT; Start 02/04/17 at 20:00 Tobramycin TOBRAMYCIN PER PHARMACY NOTE XX ; Start 02/04/17 at 20:30 Caspofungin/ Sodium Chloride (Cancidas/NS) 250 ml @ 250 mls/hr Q24H IVPB Last administered on 02/07/17 22:58; Admin Dose 250 MLS/HR; Start 02/05/17 at 22:00 VICENTE LESLIE Feb 08, 2017 13:19
--- NOTE | 2017-02-08 14:18 | CONS ---
Date/Time of Note Date/Time of Note DATE: 02/08/17 TIME: 14:16 Assessment/Plan Assessment/Plan Additional Assessment/Plan Ventilator setting; AC of 16, tidal volume 500, PEEP of 5, 40% FiO2. Assessment recommendations; 1. Patient admitted with respiratory failure status post CPR with ensuing severe anoxic brain injury. Etiology was flash pulmonary edema from underlying cardiomyopathy. 2. Chronic renal failure, on hemodialysis. 3. History of recent osteomyelitis. 4. Peripheral vascular disease. 5. Status post tracheostomy and G-tube placement. Continue current treatment. Patient awaiting transfer to intermediate. Consultation Date/Type/Reason Admit Date/Time Dec 02, 2016 at 21:01 Initial Consult Date 12/03/16 Type of Consultation: Pulmonary Referring Provider: VIET PARKER MD 24 HR Interval Summary Free Text/Dictation Patient condition remains unchanged. Underwent G-tube placement short while ago. Remains unresponsive. Has remained hemodynamically stable. General exam; elderly male, on ventilator via tracheostomy currently in no distress, unresponsive. Exam/Review of Systems Vital Signs Vitals Vital Signs Date Time Temp Pulse Resp B/P Pulse Ox O2 Delivery O2 Flow Rate FiO2 02/08/17 12:26 60 02/08/17 11:10 16 99 40 02/08/17 11:05 98.8 117/57 02/07/17 18:08 5.0 02/07/17 14:00 Mechanical Ventilator Intake and Output 02/07/17 02/07/17 02/08/17 15:00 23:00 07:00 Intake Total 995 ml 600 ml Output Total 2440 ml 400 ml Balance -1445 ml 200 ml Exam HEENT examination; supple neck, no JVD. No lymphadenopathy. Midline trachea. No thyromegaly. Tracheostomy in place without any further bleeding noted around the insertion site. Patient is edentulous. Chest examination; clear to ulceration. S1-S2 audible, no murmurs. Abdomen examination; soft, G-tube in place. Bowel sounds audible. Extremity examination; no peripheral edema. [employer] examination; patient remains unresponsive. Results Result Diagram: 02/07/17 0516 02/07/17 0516 Results 24 hrs Laboratory Tests Test 02/07/17 17:26 02/07/17 21:35 02/08/17 01:30 02/08/17 05:38 Bedside Glucose 243 H 225 H 151 122 Test 02/08/17 09:19 02/08/17 13:52 Bedside Glucose 113 108 Medications Medications Current Medications Ondansetron HCl (Zofran Inj) 4 mg Q6H PRN IV NAUSEA AND/OR VOMITING Last administered on 12/13/16 01:13; Admin Dose 4 MG; Start 12/02/16 at 22:30 Miscellaneous Information 1 ea NOTE XX ; Start 12/02/16 at 23:00 Glucose (Glutose) 15 gm Q15M PRN PO DECREASED GLUCOSE; Start 12/02/16 at 23:00 Glucose (Glutose) 22.5 gm Q15M PRN PO DECREASED GLUCOSE; Start 12/02/16 at 23: 00 Dextrose (D50w Syringe) 25 ml Q15M PRN IV DECREASED GLUCOSE Last administered on 01/26/17 05:21; Admin Dose 25 ML; Start 12/02/16 at 23:00 Dextrose (D50w Syringe) 50 ml Q15M PRN IV DECREASED GLUCOSE Last administered on 01/23/17 04:58; Admin Dose 50 ML; Start 12/02/16 at 23:00 Glucagon (Glucagen) 1 mg Q15M PRN IM DECREASED GLUCOSE; Start 12/02/16 at 23:00 Glucose (Glutose) 15 gm Q15M PRN BUCCAL DECREASED GLUCOSE; Start 12/02/16 at 23 :00 Acetaminophen (Tylenol Supp) 650 mg Q6H PRN [place] ELEVATED TEMPERATURE Last administered on 01/13/17 20:32; Admin Dose 650 MG; Start 12/09/16 at 17:00 Hydralazine HCl (Apresoline) 10 mg Q6H PRN IV SBP>150mm hg Last administered on 12/19/16 08:50; Admin Dose 10 MG; Start 12/11/16 at 10:30 Morphine Sulfate (morphine) 2 mg Q2H PRN IV PAIN LEVEL 4-7; Start 12/13/16 at 10 :00 Collagenase (Santyl) 1 applic DAILY TOP Last administered on 02/07/17 10:31; Admin Dose 1 APPLIC; Start 01/04/17 at 09:00 Metoprolol Tartrate (Lopressor) 5 mg Q4 PRN IV FOR H.R>110; Start 01/12/17 at 17:30 Acetaminophen (Tylenol Liquid) 650 mg Q6H PRN NGT PAIN AND OR ELEVATED TEMP Last administered on 02/03/17 17:37; Admin Dose 650 MG; Start 01/13/17 at 23:30 Acetaminophen/ Hydrocodone Bitart ([place] (5/325)) 1 tab Q6H PRN NGT PAIN LEVEL 4-7; Start 01/13/17 at 23:30 Levetiracetam (Keppra Liquid) 1,000 mg DAILY NGT Last administered on 08:13; Admin Dose 1,000 MG; Start 01/14/17 at 09:00 Meclizine HCl (Antivert) 25 mg TID PRN NGT dizziness; Start 01/13/17 at 20:00 Zolpidem Tartrate (Ambien) 5 mg HS PRN NGT INSOMNIA; Start 01/13/17 at 20:00 Docusate Sodium (Colace Liquid Cup) 100 mg BID NGT Last administered on 08:13; Admin Dose 100 MG; Start 01/13/17 at 21:00 Pantoprazole (Protonix Iv) 40 mg DAILY@06 IV Last administered on 02/08/17 05: 37; Admin Dose 40 MG; Start 01/14/17 at 06:00 Amiodarone HCl (Cordarone) 200 mg Q8 NGT Last administered on 02/08/17 05:38; Admin Dose 200 MG; Start 01/17/17 at 14:00 Metoprolol Tartrate (Lopressor) 12.5 mg BID NGT Last administered on 02/08/17 08:12; Admin Dose 12.5 MG; Start 01/24/17 at 21:00 Insulin Aspart (Novolog Insulin Pen) NOVOLOG *MODERATE* ALGORI... Q4 SC Last administered on 02/08/17 01:36; Admin Dose 2 UNIT; Start 01/25/17 at 13:00 Nystatin 5 ml 5 ml Q6 PO Last administered on 02/08/17 05:37; Admin Dose 5 ML ; Start 01/31/17 at 12:00 Cefepime HCl (Maxipime 1gm/50 ml (Pmx)) 50 ml @ 100 mls/hr DAILY IVPB Last administered on 02/08/17 08:13; Admin Dose 100 MLS/HR; Start 02/02/17 at 11:00 Insulin Glargine (Lantus) 40 unit DAILY@20 SC Last administered on 02/07/17 21 :50; Admin Dose 40 UNIT; Start 02/04/17 at 20:00 Tobramycin TOBRAMYCIN PER PHARMACY NOTE XX ; Start 02/04/17 at 20:30 Caspofungin/ Sodium Chloride (Cancidas/NS) 250 ml @ 250 mls/hr Q24H IVPB Last administered on 02/07/17 22:58; Admin Dose 250 MLS/HR; Start 02/05/17 at 22:00 IKE MULLER Feb 08, 2017 14:18
--- NOTE | 2017-02-08 14:41 | CONS ---
Date/Time of Note Date/Time of Note DATE: 02/08/17 TIME: 14:26 Assessment/Plan Assessment/Plan Chief Complaint/Hosp Course - possible recurrent sepsis due to pneumonia - recurrent cardiopulmonary arrest on 12/09/2016 and on 01/08/2017 - s/p sepsis due to possible tracheobronchitis/pneumonia - recurrent pneumonia due to pseudomonas - thrush, refractory to nystatin - funguria - bleeding from trach site - s/p recurrent sepsis - 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 Blood cultures from HD catheter on 12/13/2016 are negative to date. 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 MRI on 12/06/2016 and bone scan on showed 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 and left fourth proximal phalanx. superficial swab grew inna only. At present, no e/o persistent infection - recurrent pleural effusion - s/p right pleural effusion s/p thoracentesis with .9L removed on 12/16/2016; ( Note: there is no pleural fluid cx since orders were placed after Right thoracentesis, and Left thoracentesis was not performed on 12/17/16 d/t insufficient fluid) - ARANZA on CKD that progressed to ESRD and started on HD from 12/09/2016 - oliguria - improved - A fib -> PAF - small nonreversible perfusion abnormality in the inferoapical and inferior carver; EF 36% per Lexiscan 12/24/2016 - severe , EF 40-45% per TTE 12/17/16 - DM - Hgb A1c 8.7% - HTN associated with DM - acute encephalopathy with anoxic brain injury - unstageable decubitus ulcer of coccyx, no evidence of infection - dysphagia s/p G-tube placement 02/08/2017 NOTE: Pt completed 6 weeks (12/03/2016-01/15/2017) of antibiotics to treat 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 and left fourth proximal phalanx ; s/p pip/tazo 12/03/16-01/08/17; linezolid 01/08/17-01/20/17; caspofungin 01/12/17-01/21/17, restarted recommendations: - continue renally dosed cefepime (restarted on 02/02/2017-) and IV tobramycin (-) for pseudomonas - continue empiric caspofungin (02/04/2017-) - continue nystatin for thrush - wound care of the coccyx and upper back Management d/w ALINA Motley and Dr. Wilson Problems: Consultation Date/Type/Reason Admit Date/Time Dec 02, 2016 at 21:01 Initial Consult Date 12/03/16 Type of Consultation: Infectious Disease Referring Provider: VIET PARKER MD 24 HR Interval Summary Free Text/Dictation PEG placed today. No other acute issues per d/w nursing staff. Subjective hx not possible: pt non-verbal Exam/Review of Systems Vital Signs Vitals Vital Signs Date Time Temp Pulse Resp B/P Pulse Ox O2 Delivery O2 Flow Rate FiO2 02/08/17 12:26 60 02/08/17 11:10 16 99 40 02/08/17 11:05 98.8 117/57 02/07/17 18:08 5.0 02/07/17 14:00 Mechanical Ventilator Intake and Output 02/07/17 02/07/17 02/08/17 15:00 23:00 07:00 Intake Total 995 ml 600 ml Output Total 2440 ml 400 ml Balance -1445 ml 200 ml Exam Constitutional: frail, non-verbal, well developed Head: atraumatic, normocephalic Eyes: nl conjunctiva, nl lids ENMT: other (thrush) Neck: other (tracheostomy intact) Respiratory: few coarse breath sounds Cardiovascular: nl pulses, regular rate and rhythm Gastrointestinal: non-tender, soft, G-tube clamped and intact Genitourinary - Male: nl penis, nl scrotum, other (Condom catheter in place) Musculoskeletal: nl extremities to inspection Extremities: No edema Neurological: lethargic Skin: nl turgor, other (wounds: see nurse note and photos in chart for details ; decub on the coccyx; small scab noted to left great toe -plantar aspect) Results Result Diagram: 02/07/17 0516 02/07/17 0516 Results 24 hrs Laboratory Tests Test 02/07/17 17:26 02/07/17 21:35 02/08/17 01:30 02/08/17 05:38 Bedside Glucose 243 H 225 H 151 122 Test 02/08/17 09:19 02/08/17 13:52 Bedside Glucose 113 108 Medications Medications Current Medications Ondansetron HCl (Zofran Inj) 4 mg Q6H PRN IV NAUSEA AND/OR VOMITING Last administered on 12/13/16 01:13; Admin Dose 4 MG; Start 12/02/16 at 22:30 Miscellaneous Information 1 ea NOTE XX ; Start 12/02/16 at 23:00 Glucose (Glutose) 15 gm Q15M PRN PO DECREASED GLUCOSE; Start 12/02/16 at 23:00 Glucose (Glutose) 22.5 gm Q15M PRN PO DECREASED GLUCOSE; Start 12/02/16 at 23: 00 Dextrose (D50w Syringe) 25 ml Q15M PRN IV DECREASED GLUCOSE Last administered on 01/26/17 05:21; Admin Dose 25 ML; Start 12/02/16 at 23:00 Dextrose (D50w Syringe) 50 ml Q15M PRN IV DECREASED GLUCOSE Last administered on 01/23/17 04:58; Admin Dose 50 ML; Start 12/02/16 at 23:00 Glucagon (Glucagen) 1 mg Q15M PRN IM DECREASED GLUCOSE; Start 12/02/16 at 23:00 Glucose (Glutose) 15 gm Q15M PRN BUCCAL DECREASED GLUCOSE; Start 12/02/16 at 23 :00 Acetaminophen (Tylenol Supp) 650 mg Q6H PRN [place] ELEVATED TEMPERATURE Last administered on 01/13/17 20:32; Admin Dose 650 MG; Start 12/09/16 at 17:00 Hydralazine HCl (Apresoline) 10 mg Q6H PRN IV SBP>150mm hg Last administered on 12/19/16 08:50; Admin Dose 10 MG; Start 12/11/16 at 10:30 Morphine Sulfate (morphine) 2 mg Q2H PRN IV PAIN LEVEL 4-7; Start 12/13/16 at 10 :00 Collagenase (Santyl) 1 applic DAILY TOP Last administered on 02/07/17 10:31; Admin Dose 1 APPLIC; Start 01/04/17 at 09:00 Metoprolol Tartrate (Lopressor) 5 mg Q4 PRN IV FOR H.R>110; Start 01/12/17 at 17:30 Acetaminophen (Tylenol Liquid) 650 mg Q6H PRN NGT PAIN AND OR ELEVATED TEMP Last administered on 02/03/17 17:37; Admin Dose 650 MG; Start 01/13/17 at 23:30 Acetaminophen/ Hydrocodone Bitart ([place] (5/325)) 1 tab Q6H PRN NGT PAIN LEVEL 4-7; Start 01/13/17 at 23:30 Levetiracetam (Keppra Liquid) 1,000 mg DAILY NGT Last administered on 08:13; Admin Dose 1,000 MG; Start 01/14/17 at 09:00 Meclizine HCl (Antivert) 25 mg TID PRN NGT dizziness; Start 01/13/17 at 20:00 Zolpidem Tartrate (Ambien) 5 mg HS PRN NGT INSOMNIA; Start 01/13/17 at 20:00 Docusate Sodium (Colace Liquid Cup) 100 mg BID NGT Last administered on 08:13; Admin Dose 100 MG; Start 01/13/17 at 21:00 Pantoprazole (Protonix Iv) 40 mg DAILY@06 IV Last administered on 02/08/17 05: 37; Admin Dose 40 MG; Start 01/14/17 at 06:00 Amiodarone HCl (Cordarone) 200 mg Q8 NGT Last administered on 02/08/17 05:38; Admin Dose 200 MG; Start 01/17/17 at 14:00 Metoprolol Tartrate (Lopressor) 12.5 mg BID NGT Last administered on 02/08/17 08:12; Admin Dose 12.5 MG; Start 01/24/17 at 21:00 Insulin Aspart (Novolog Insulin Pen) NOVOLOG *MODERATE* ALGORI... Q4 SC Last administered on 02/08/17 01:36; Admin Dose 2 UNIT; Start 01/25/17 at 13:00 Nystatin 5 ml 5 ml Q6 PO Last administered on 02/08/17 05:37; Admin Dose 5 ML ; Start 01/31/17 at 12:00 Cefepime HCl (Maxipime 1gm/50 ml (Pmx)) 50 ml @ 100 mls/hr DAILY IVPB Last administered on 02/08/17 08:13; Admin Dose 100 MLS/HR; Start 02/02/17 at 11:00 Insulin Glargine (Lantus) 40 unit DAILY@20 SC Last administered on 02/07/17 21 :50; Admin Dose 40 UNIT; Start 02/04/17 at 20:00 Tobramycin TOBRAMYCIN PER PHARMACY NOTE XX ; Start 02/04/17 at 20:30 Caspofungin/ Sodium Chloride (Cancidas/NS) 250 ml @ 250 mls/hr Q24H IVPB Last administered on 02/07/17 22:58; Admin Dose 250 MLS/HR; Start 02/05/17 at 22:00 YUMIKO ALATORRE NP Feb 08, 2017 14:40
[2017-02-08] MEDS ORDERED: DEXTROSE 5%-0.45% NACL 1,000 ML IV SCH (15:30)
[2017-02-08] MEDS: COLLAGENASE 30 GM TUBE TOP SCH (16:36)
--- NOTE | 2017-02-08 16:39 | PN ---
Date/Time of Note Date/Time of Note DATE: 02/08/17 TIME: 16:36 Assessment/Plan VTE Prophylaxis VTE Prophylaxis Intervention: SCD's Lines/Catheters IV Catheter Type (from [facility]): Saline Lock Urinary Cath still in place: No Assessment/Plan Chief Complaint/Hosp Course Patient is status post G-tube placement today, remains afebrile, no bleeding from tracheostomy. ASSESSMENT AND PLAN: - Dysphagia. S/p G-tube placement today by Dr. De La Fuente. Restart G-tube feeding per gastroenterology recommendation. Gentle IV hydration with dextrose while patient is n.p.o. - Possible recurrent sepsis, resolving. continue antibiotics per [facility] is following infection disease consultation. - Anemia of blood loss. Continue to monitor H&H, transfuse as needed. - Status post cardiopulmonary arrest on 12/09/2016 and 01/08/2017. Continue ventilatory support. - Anoxic encephalopathy. Continue Keppra. - Status post tracheostomy on 01/23/2017. - End-stage renal disease. Continue hemodialysis per nephrology. - Paroxysmal atrial fibrillation. Eliquis is currently held due to bleeding. - Diabetes mellitus type 2. Continue Lantus and NovoLog with sliding scale coverage with Accu-Cheks q. 4 hours. - Diabetic foot ulcer. Continue current wound care. - Osteomyelitis of the distal phalanx of the great left toe. Completed treatment for antibiotics. Continue sequential compression device for deep venous thrombosis prophylaxis and Protonix for peptic ulcer disease prophylaxis. Further recommendations based on clinical course. Plan of care discussed with Dr. Heredia. Problems: Exam/Review of Systems Vital Signs Vitals Vital Signs Date Time Temp Pulse Resp B/P Pulse Ox O2 Delivery O2 Flow Rate FiO2 02/08/17 15:57 97.8 67 16 137/64 99 02/08/17 15:20 40 02/08/17 08:30 Bag Valve Mask 02/07/17 18:08 5.0 Intake and Output 02/07/17 02/07/17 02/08/17 15:00 23:00 07:00 Intake Total 995 ml 600 ml Output Total 2440 ml 400 ml Balance -1445 ml 200 ml Exam Constitutional: non-verbal Head: atraumatic, normocephalic ENMT: other (Nasogastric tube) Neck: other (Tracheostomy), supple Respiratory: diminished breath sounds Cardiovascular: nl pulses Gastrointestinal: non-tender, soft, GT Neurological: unresponsive Results Result Diagram: 02/07/17 0516 02/07/17 0516 Results 24 hrs Laboratory Tests Test 02/07/17 17:26 02/07/17 21:35 02/08/17 01:30 02/08/17 05:38 Bedside Glucose 243 H 225 H 151 122 Test 02/08/17 09:19 02/08/17 13:52 Bedside Glucose 113 108 Medications Medications Current Medications Ondansetron HCl (Zofran Inj) 4 mg Q6H PRN IV NAUSEA AND/OR VOMITING Last administered on 12/13/16 01:13; Admin Dose 4 MG; Start 12/02/16 at 22:30 Miscellaneous Information 1 ea NOTE XX ; Start 12/02/16 at 23:00 Glucose (Glutose) 15 gm Q15M PRN PO DECREASED GLUCOSE; Start 12/02/16 at 23:00 Glucose (Glutose) 22.5 gm Q15M PRN PO DECREASED GLUCOSE; Start 12/02/16 at 23: 00 Dextrose (D50w Syringe) 25 ml Q15M PRN IV DECREASED GLUCOSE Last administered on 01/26/17 05:21; Admin Dose 25 ML; Start 12/02/16 at 23:00 Dextrose (D50w Syringe) 50 ml Q15M PRN IV DECREASED GLUCOSE Last administered on 01/23/17 04:58; Admin Dose 50 ML; Start 12/02/16 at 23:00 Glucagon (Glucagen) 1 mg Q15M PRN IM DECREASED GLUCOSE; Start 12/02/16 at 23:00 Glucose (Glutose) 15 gm Q15M PRN BUCCAL DECREASED GLUCOSE; Start 12/02/16 at 23 :00 Acetaminophen (Tylenol Supp) 650 mg Q6H PRN [place] ELEVATED TEMPERATURE Last administered on 01/13/17 20:32; Admin Dose 650 MG; Start 12/09/16 at 17:00 Hydralazine HCl (Apresoline) 10 mg Q6H PRN IV SBP>150mm hg Last administered on 12/19/16 08:50; Admin Dose 10 MG; Start 12/11/16 at 10:30 Morphine Sulfate (morphine) 2 mg Q2H PRN IV PAIN LEVEL 4-7; Start 12/13/16 at 10 :00 Collagenase (Santyl) 1 applic DAILY TOP Last administered on 02/07/17 10:31; Admin Dose 1 APPLIC; Start 01/04/17 at 09:00 Metoprolol Tartrate (Lopressor) 5 mg Q4 PRN IV FOR H.R>110; Start 01/12/17 at 17:30 Acetaminophen (Tylenol Liquid) 650 mg Q6H PRN NGT PAIN AND OR ELEVATED TEMP Last administered on 02/03/17 17:37; Admin Dose 650 MG; Start 01/13/17 at 23:30 Acetaminophen/ Hydrocodone Bitart ([place] (5/325)) 1 tab Q6H PRN NGT PAIN LEVEL 4-7; Start 01/13/17 at 23:30 Levetiracetam (Keppra Liquid) 1,000 mg DAILY NGT Last administered on 08:13; Admin Dose 1,000 MG; Start 01/14/17 at 09:00 Meclizine HCl (Antivert) 25 mg TID PRN NGT dizziness; Start 01/13/17 at 20:00 Zolpidem Tartrate (Ambien) 5 mg HS PRN NGT INSOMNIA; Start 01/13/17 at 20:00 Docusate Sodium (Colace Liquid Cup) 100 mg BID NGT Last administered on 08:13; Admin Dose 100 MG; Start 01/13/17 at 21:00 Pantoprazole (Protonix Iv) 40 mg DAILY@06 IV Last administered on 02/08/17 05: 37; Admin Dose 40 MG; Start 01/14/17 at 06:00 Amiodarone HCl (Cordarone) 200 mg Q8 NGT Last administered on 02/08/17 05:38; Admin Dose 200 MG; Start 01/17/17 at 14:00 Metoprolol Tartrate (Lopressor) 12.5 mg BID NGT Last administered on 02/08/17 08:12; Admin Dose 12.5 MG; Start 01/24/17 at 21:00 Insulin Aspart (Novolog Insulin Pen) NOVOLOG *MODERATE* ALGORI... Q4 SC Last administered on 02/08/17 01:36; Admin Dose 2 UNIT; Start 01/25/17 at 13:00 Nystatin 5 ml 5 ml Q6 PO Last administered on 02/08/17 05:37; Admin Dose 5 ML ; Start 01/31/17 at 12:00 Cefepime HCl (Maxipime 1gm/50 ml (Pmx)) 50 ml @ 100 mls/hr DAILY IVPB Last administered on 02/08/17 08:13; Admin Dose 100 MLS/HR; Start 02/02/17 at 11:00 Insulin Glargine (Lantus) 40 unit DAILY@20 SC Last administered on 02/07/17 21 :50; Admin Dose 40 UNIT; Start 02/04/17 at 20:00 Tobramycin TOBRAMYCIN PER PHARMACY NOTE XX ; Start 02/04/17 at 20:30 Caspofungin 50 mg/ Sodium Chloride 250 ml @ 250 mls/hr Q24H IVPB Last administered on 02/07/17 22:58; Admin Dose 250 MLS/HR; Start 02/05/17 at 22:00 Dextrose/Sodium Chloride (D5-1/2ns) 1,000 ml @ 50 mls/hr Q20H IV ; Start at 15:30 KIMBERLY NOYOLA Feb 08, 2017 16:39
--- NOTE | 2017-02-08 18:05 | CONS ---
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 Blood cultures from HD catheter on 12/13/2016 are negative to date. 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 MRI on 12/06/2016 and bone scan on showed 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 and left fourth proximal phalanx. superficial swab grew inna only - s/p right pleural effusion s/p thoracentesis with .9L removed on 12/16/2016 - severe , EF 40-45% per TTE 12/17/16 - DM - Hgb A1c 8.7% - HTN associated with DM Tracheostomy site bleeding Plan: HD tomorrow s/p Tracheostomy, on ventilator pt will need HD palcement at a unit where they can do a HD for pt with tracheostomy and PEG tube placemen t pt has severe , very labile BP sometimes with HD will continue to follow up for HD need Consultation Date/Type/Reason Admit Date/Time Dec 02, 2016 at 21:01 Initial Consult Date Type of Consultation: NEPHROLOGY Referring Provider: VIET PARKER MD Exam/Review of Systems Vital Signs Vitals Vital Signs Date Time Temp Pulse Resp B/P Pulse Ox O2 Delivery O2 Flow Rate FiO2 02/08/17 17:20 67 16 98 40 02/08/17 15:57 97.8 137/64 02/08/17 08:30 Bag Valve Mask 02/07/17 18:08 5.0 Intake and Output 02/07/17 02/07/17 02/08/17 14:59 22:59 06:59 Intake Total 1050 ml 600 ml Output Total 2470 ml 400 ml Balance -1420 ml 200 ml Results Result Diagram: 02/07/17 0516 02/07/17 0516 Results 24 hrs Laboratory Tests Test 02/07/17 21:35 02/08/17 01:30 02/08/17 05:38 02/08/17 09:19 Bedside Glucose 225 H 151 122 113 Test 02/08/17 13:52 02/08/17 16:41 Bedside Glucose 108 104 Medications Medications Current Medications Ondansetron HCl (Zofran Inj) 4 mg Q6H PRN IV NAUSEA AND/OR VOMITING Last administered on 12/13/16 01:13; Admin Dose 4 MG; Start 12/02/16 at 22:30 Miscellaneous Information 1 ea NOTE XX ; Start 12/02/16 at 23:00 Glucose (Glutose) 15 gm Q15M PRN PO DECREASED GLUCOSE; Start 12/02/16 at 23:00 Glucose (Glutose) 22.5 gm Q15M PRN PO DECREASED GLUCOSE; Start 12/02/16 at 23: 00 Dextrose (D50w Syringe) 25 ml Q15M PRN IV DECREASED GLUCOSE Last administered on 01/26/17 05:21; Admin Dose 25 ML; Start 12/02/16 at 23:00 Dextrose (D50w Syringe) 50 ml Q15M PRN IV DECREASED GLUCOSE Last administered on 01/23/17 04:58; Admin Dose 50 ML; Start 12/02/16 at 23:00 Glucagon (Glucagen) 1 mg Q15M PRN IM DECREASED GLUCOSE; Start 12/02/16 at 23:00 Glucose (Glutose) 15 gm Q15M PRN BUCCAL DECREASED GLUCOSE; Start 12/02/16 at 23 :00 Acetaminophen (Tylenol Supp) 650 mg Q6H PRN [place] ELEVATED TEMPERATURE Last administered on 01/13/17 20:32; Admin Dose 650 MG; Start 12/09/16 at 17:00 Hydralazine HCl (Apresoline) 10 mg Q6H PRN IV SBP>150mm hg Last administered on 12/19/16 08:50; Admin Dose 10 MG; Start 12/11/16 at 10:30 Morphine Sulfate (morphine) 2 mg Q2H PRN IV PAIN LEVEL 4-7; Start 12/13/16 at 10 :00 Collagenase (Santyl) 1 applic DAILY TOP Last administered on 02/08/17 16:36; Admin Dose 1 APPLIC; Start 01/04/17 at 09:00 Metoprolol Tartrate (Lopressor) 5 mg Q4 PRN IV FOR H.R>110; Start 01/12/17 at 17:30 Acetaminophen (Tylenol Liquid) 650 mg Q6H PRN NGT PAIN AND OR ELEVATED TEMP Last administered on 02/03/17 17:37; Admin Dose 650 MG; Start 01/13/17 at 23:30 Acetaminophen/ Hydrocodone Bitart ([place] (5/325)) 1 tab Q6H PRN NGT PAIN LEVEL 4-7; Start 01/13/17 at 23:30 Levetiracetam (Keppra Liquid) 1,000 mg DAILY NGT Last administered on 08:13; Admin Dose 1,000 MG; Start 01/14/17 at 09:00 Meclizine HCl (Antivert) 25 mg TID PRN NGT dizziness; Start 01/13/17 at 20:00 Zolpidem Tartrate (Ambien) 5 mg HS PRN NGT INSOMNIA; Start 01/13/17 at 20:00 Docusate Sodium (Colace Liquid Cup) 100 mg BID NGT Last administered on 08:13; Admin Dose 100 MG; Start 01/13/17 at 21:00 Amiodarone HCl (Cordarone) 200 mg Q8 NGT Last administered on 02/08/17 05:38; Admin Dose 200 MG; Start 01/17/17 at 14:00 Metoprolol Tartrate (Lopressor) 12.5 mg BID NGT Last administered on 02/08/17 08:12; Admin Dose 12.5 MG; Start 01/24/17 at 21:00 Insulin Aspart (Novolog Insulin Pen) NOVOLOG *MODERATE* ALGORI... Q4 SC Last administered on 02/08/17 01:36; Admin Dose 2 UNIT; Start 01/25/17 at 13:00 Nystatin 5 ml 5 ml Q6 PO Last administered on 02/08/17 05:37; Admin Dose 5 ML ; Start 01/31/17 at 12:00 Cefepime HCl (Maxipime 1gm/50 ml (Pmx)) 50 ml @ 100 mls/hr DAILY IVPB Last administered on 02/08/17 08:13; Admin Dose 100 MLS/HR; Start 02/02/17 at 11:00 Insulin Glargine (Lantus) 40 unit DAILY@20 SC Last administered on 02/07/17 21 :50; Admin Dose 40 UNIT; Start 02/04/17 at 20:00 Tobramycin TOBRAMYCIN PER PHARMACY NOTE XX ; Start 02/04/17 at 20:30 Caspofungin 50 mg/ Sodium Chloride 250 ml @ 250 mls/hr Q24H IVPB Last administered on 02/07/17 22:58; Admin Dose 250 MLS/HR; Start 02/05/17 at 22:00 Dextrose/Sodium Chloride (D5-1/2ns) 1,000 ml @ 50 mls/hr Q20H IV Last administered on 02/08/17 16:36; Admin Dose 50 MLS/HR; Start 02/08/17 at 15:30 Lansoprazole (Prevacid) 30 mg DAILY@06 GTB ; Start 02/09/17 at 06:00 TASHIA MCGARRY MD Feb 08, 2017 18:05
[2017-02-08] MEDS: INSULIN GLARGINE [LANtus] 3 ML PEN SC SCH (20:50)
[2017-02-08] MEDS: CASPOFUNGIN 50 MG in SOD CHLORIDE 0.9% 250 ML IVPB SCH (21:58)
--- NOTE | 2017-02-08 23:44 | PN ---
Date/Time of Note Date/Time of Note DATE: 02/08/17 TIME: 23:44 Assessment/Plan Lines/Catheters IV Catheter Type (from [facility] Saline Lock Molina in Place (from [facility]): No Exam/Review of Systems Vital Signs Vitals Vital Signs Date Time Temp Pulse Resp B/P Pulse Ox O2 Delivery O2 Flow Rate FiO2 02/08/17 23:41 98.1 68 19 154/72 99 02/08/17 22:15 40 02/08/17 08:30 Bag Valve Mask 02/07/17 18:08 5.0 Intake and Output 02/07/17 02/07/17 02/08/17 15:00 23:00 07:00 Intake Total 995 ml 600 ml Output Total 2440 ml 400 ml Balance -1445 ml 200 ml Results Result Diagram: 02/07/17 0516 02/07/17 0516 YEIMI LIZARRAGA DPM Feb 08, 2017 23:44
[2017-02-09] VITALS (33 sets, daily range): BP systolic 97–149; BP diastolic 45–87; PULSE 66–78; RESP 16–20
[2017-02-09] MEDS: NYSTATIN SUSP 5 ML CUP PO SCH ×4 (00:32→17:39)
[2017-02-09] MEDS: INSULIN ASPART [NOVOLOG] 3 ML PEN SC SCH ×5 (00:35→17:43)
[2017-02-09] MEDS: ALBUTEROL 18 GM INHALER INH SCH ×4 (01:20→20:23)
[2017-02-09] MEDS: LANSOPRAZOLE 30 MG CAP GTB SCH (06:53)
[2017-02-09] MEDS: AMIODARONE 200 MG TAB NGT SCH ×3 (06:53→21:22)
[2017-02-09 07:58] LABS: ADD SCAN DIFF NO
[2017-02-09 08:05] LABS: BASOPHILS % 0.1 % (0.0-2.0); EOSINOPHILS # 0.1 10^3/ul (0.0-0.5); EOSINOPHILS % 0.6 % (0.0-7.0); HEMATOCRIT 24.7 % (42.0-52.0); HEMOGLOBIN 7.8 g/dl (14.0-18.0); LYMPHOCYTES # 1.3 10^3/ul (0.8-2.9); LYMPHOCYTES % 14.3 % (15.0-51.0); MEAN CORPUSCULAR HEMOGLOBIN 28.7 pg (29.0-33.0); MEAN CORPUSCULAR HGB CONC 31.6 g/dl (32.0-37.0); MEAN CORPUSCULAR VOLUME 90.8 fl (82.0-101.0); MEAN PLATELET VOLUME 10.2 fl (7.4-10.4); MONOCYTE # 0.8 10^3/ul (0.3-0.9); MONOCYTES % 8.5 % (0.0-11.0); NEUTROPHIL # 6.9 10^3/ul (1.6-7.5); NEUTROPHILS % 74.5 % (39.0-77.0); PLATELET COUNT 228 10^3/UL (140-415); RED BLOOD COUNT 2.72 10^6/ul (4.70-6.10); RED CELL DISTRIBUTION WIDTH 14.8 % (11.5-14.5); WHITE BLOOD COUNT 9.3 10^3/ul (4.8-10.8)
[2017-02-09 08:46] LABS: CALCIUM 8.2 mg/dl (8.4-10.2); CREATININE 1.46 mg/dl (0.61-1.24); POTASSIUM 4.1 mmol/L (3.5-5.1)
[2017-02-09] MEDS: LEVETIRACETAM (100 MG/ML) 5ML CUP NGT SCH (08:46)
[2017-02-09] MEDS: METOPROLOL 25 MG TAB NGT SCH ×2 (08:46→21:00)
[2017-02-09] MEDS: CEFEPIME 1GM/50 ML (PMX) 50 ML IVPB SCH (08:46)
[2017-02-09] MEDS: DOCUSATE SODIUM 10 MG/ML (10ML CUP) NGT SCH ×2 (08:46→21:22)
[2017-02-09] MEDS: COLLAGENASE 30 GM TUBE TOP SCH ×2 (09:00→18:30)
--- NOTE | 2017-02-09 15:40 | CONS ---
Date/Time of Note Date/Time of Note DATE: 02/09/17 TIME: 15:35 Assessment/Plan Assessment/Plan Chief Complaint/Hosp Course IMPRESSION: 1. Atrial fibrillation-Having episodes of PAF with reasonable rate control 2. Hypotension-borderline and labile 3. Abnormal electrocardiogram with inferolateral T-wave inversions. 4. Respiratory failure-s/p trach placement 5. Nonhealing toe ulceration-vascular following 6. Peripheral arterial disease by arterial ultrasound of the lower extremities this admission. 7. Diabetes mellitus. 8. Fevers. 9. Positive troponin-downtrended 10.Bradycardia-improved/stable 11.-severe by echo 12.Cardiomyopathy-EF 40-45% by echo/36% by stress with no ischemia but positive scar. EF <30% by echo post arrest 14.Encephalopathy-anoxic 15. s/p cardiopulmonary arrest 01/08 Recc: -Tele -serial ecg -HD for volume removal as tolerated -ASA held due to initial trach site bleeding-? ability to resume -Question ability to resume eliquis at this time -Continue PO amio in attempt to maintain SR -Continue BB as tolerated only following HR/BP closely -Will hold on afterload reduction given severe and thus fixed afterload at valve orifice Problems: Consultation Date/Type/Reason Admit Date/Time Dec 02, 2016 at 21:01 Initial Consult Date 12/03/16 Type of Consultation: cardiology Reason for Consultation PAF/CHF Referring Provider: VIET PARKER MD Exam/Review of Systems Vital Signs Vitals Vital Signs Date Time Temp Pulse Resp B/P Pulse Ox O2 Delivery O2 Flow Rate FiO2 02/09/17 13:00 77 16 99 35 02/09/17 11:51 98.3 106/54 02/08/17 08:30 Bag Valve Mask 02/07/17 18:08 5.0 Intake and Output 02/08/17 02/08/17 02/09/17 15:00 23:00 07:00 Intake Total 50 ml 300 ml 60 ml Output Total 300 ml 700 ml Balance 50 ml 0 ml -640 ml Exam Review of Systems: CONSTITUTIONAL: No fevers, chills. PULMONARY: trached CARDIOVASCULAR: No obvious chest pain/palpitations GASTROINTESTINAL: No nausea/vomiting. GENITOURINARY: No hematuria/dysuria. MUSCULOSKELETAL: No myagias/arthalgias. PSYCHIATRIC: The patient denies depression. NEUROLOGIC: encephalopathic Constitutional: alert Psych: no complaints Head: normocephalic ENMT: mucosa pink and moist Neck: jvd, supple Respiratory: diminished breath sounds Cardiovascular: regular rate and rhythm Gastrointestinal: non-tender, soft Musculoskeletal: muscle tone (normal) Extremities: edema Neurological: other (No focal deficits) Results Result Diagram: 02/09/17 0701 02/09/17 0707 Results 24 hrs Laboratory Tests Test 02/08/17 16:41 02/08/17 20:46 02/09/17 00:34 02/09/17 06:00 Bedside Glucose 104 143 123 85 Test 02/09/17 07:01 02/09/17 07:07 02/09/17 08:18 02/09/17 13:08 White Blood Count 9.3 # Red Blood Count 2.72 L Hemoglobin 7.8 L Hematocrit 24.7 L Mean Corpuscular Volume 90.8 Mean Corpuscular Hemoglobin 28.7 L Mean Corpuscular Hemoglobin Concent 31.6 L Red Cell Distribution Width 14.8 H Platelet Count 228 Mean Platelet Volume 10.2 Neutrophils % 74.5 Lymphocytes % 14.3 L Monocytes % 8.5 Eosinophils % 0.6 Basophils % 0.1 Nucleated Red Blood Cells % 0.0 Neutrophils # 6.9 Lymphocytes # 1.3 Monocytes # 0.8 Eosinophils # 0.1 Basophils # 0.0 Nucleated Red Blood Cells # 0.0 Sodium Level 140 Potassium Level 4.1 Chloride Level 101 Carbon Dioxide Level 31 Anion Gap 12 Blood Urea Nitrogen 56 H Creatinine 1.46 H Glucose Level 89 Calcium Level 8.2 L Bedside Glucose 99 138 Medications Medications Current Medications Ondansetron HCl (Zofran Inj) 4 mg Q6H PRN IV NAUSEA AND/OR VOMITING Last administered on 12/13/16 01:13; Admin Dose 4 MG; Start 12/02/16 at 22:30 Miscellaneous Information 1 ea NOTE XX ; Start 12/02/16 at 23:00 Glucose (Glutose) 15 gm Q15M PRN PO DECREASED GLUCOSE; Start 12/02/16 at 23:00 Glucose (Glutose) 22.5 gm Q15M PRN PO DECREASED GLUCOSE; Start 12/02/16 at 23: 00 Dextrose (D50w Syringe) 25 ml Q15M PRN IV DECREASED GLUCOSE Last administered on 01/26/17 05:21; Admin Dose 25 ML; Start 12/02/16 at 23:00 Dextrose (D50w Syringe) 50 ml Q15M PRN IV DECREASED GLUCOSE Last administered on 01/23/17 04:58; Admin Dose 50 ML; Start 12/02/16 at 23:00 Glucagon (Glucagen) 1 mg Q15M PRN IM DECREASED GLUCOSE; Start 12/02/16 at 23:00 Glucose (Glutose) 15 gm Q15M PRN BUCCAL DECREASED GLUCOSE; Start 12/02/16 at 23 :00 Acetaminophen (Tylenol Supp) 650 mg Q6H PRN [place] ELEVATED TEMPERATURE Last administered on 01/13/17 20:32; Admin Dose 650 MG; Start 12/09/16 at 17:00 Hydralazine HCl (Apresoline) 10 mg Q6H PRN IV SBP>150mm hg Last administered on 12/19/16 08:50; Admin Dose 10 MG; Start 12/11/16 at 10:30 Morphine Sulfate (morphine) 2 mg Q2H PRN IV PAIN LEVEL 4-7; Start 12/13/16 at 10 :00 Collagenase (Santyl) 1 applic DAILY TOP Last administered on 02/08/17 16:36; Admin Dose 1 APPLIC; Start 01/04/17 at 09:00 Metoprolol Tartrate (Lopressor) 5 mg Q4 PRN IV FOR H.R>110; Start 01/12/17 at 17:30 Acetaminophen (Tylenol Liquid) 650 mg Q6H PRN NGT PAIN AND OR ELEVATED TEMP Last administered on 02/03/17 17:37; Admin Dose 650 MG; Start 01/13/17 at 23:30 Acetaminophen/ Hydrocodone Bitart ([place] (5/325)) 1 tab Q6H PRN NGT PAIN LEVEL 4-7; Start 01/13/17 at 23:30 Levetiracetam (Keppra Liquid) 1,000 mg DAILY NGT Last administered on 08:46; Admin Dose 1,000 MG; Start 01/14/17 at 09:00 Meclizine HCl (Antivert) 25 mg TID PRN NGT dizziness; Start 01/13/17 at 20:00 Zolpidem Tartrate (Ambien) 5 mg HS PRN NGT INSOMNIA; Start 01/13/17 at 20:00 Docusate Sodium (Colace Liquid Cup) 100 mg BID NGT Last administered on 08:46; Admin Dose 100 MG; Start 01/13/17 at 21:00 Amiodarone HCl (Cordarone) 200 mg Q8 NGT Last administered on 02/09/17 13:09; Admin Dose 200 MG; Start 01/17/17 at 14:00 Metoprolol Tartrate (Lopressor) 12.5 mg BID NGT Last administered on 02/08/17 08:12; Admin Dose 12.5 MG; Start 01/24/17 at 21:00 Nystatin 5 ml 5 ml Q6 PO Last administered on 02/09/17 12:12; Admin Dose 5 ML ; Start 01/31/17 at 12:00 Cefepime HCl (Maxipime 1gm/50 ml (Pmx)) 50 ml @ 100 mls/hr DAILY IVPB Last administered on 02/09/17 08:46; Admin Dose 100 MLS/HR; Start 02/02/17 at 11:00 Insulin Glargine (Lantus) 40 unit DAILY@20 SC Last administered on 02/08/17 20 :50; Admin Dose 40 UNIT; Start 02/04/17 at 20:00 Tobramycin TOBRAMYCIN PER PHARMACY NOTE XX ; Start 02/04/17 at 20:30 Caspofungin/ Sodium Chloride ([place]/NS) 250 ml @ 250 mls/hr Q24H IVPB Last administered on 02/08/17 21:58; Admin Dose 250 MLS/HR; Start 02/05/17 at 22:00 Lansoprazole (Prevacid) 30 mg DAILY@06 GTB Last administered on 02/09/17 06:53 ; Admin Dose 30 MG; Start 02/09/17 at 06:00 Insulin Aspart (Novolog Insulin Pen) NOVOLOG *MODERATE* ALGORI... Q6 SC ; Start 02/09/17 at 18:00 VICENTE LESLIE Feb 09, 2017 15:39
--- NOTE | 2017-02-09 16:47 | CONS ---
Date/Time of Note Date/Time of Note DATE: 02/09/17 TIME: 16:46 Assessment/Plan Assessment/Plan Additional Assessment/Plan possible recurrent sepsis due to pneumonia - recurrent cardiopulmonary arrest on 12/09/2016 and on 01/08/2017 - s/p sepsis due to possible tracheobronchitis/pneumonia - recurrent pneumonia due to pseudomonas - thrush, refractory to nystatin - funguria - bleeding from trach site - s/p recurrent sepsis - 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 Blood cultures from HD catheter on 12/13/2016 are negative to date. 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 MRI on 12/06/2016 and bone scan on showed 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 and left fourth proximal phalanx. superficial swab grew inna only. At present, no e/o persistent infection - recurrent pleural effusion - s/p right pleural effusion s/p thoracentesis with .9L removed on 12/16/2016; ( Note: there is no pleural fluid cx since orders were placed after Right thoracentesis, and Left thoracentesis was not performed on 12/17/16 d/t insufficient fluid) - ARANZA on CKD that progressed to ESRD and started on HD from 12/09/2016 - oliguria - improved - A fib -> PAF - small nonreversible perfusion abnormality in the inferoapical and inferior carver; EF 36% per Lexiscan 12/24/2016 - severe , EF 40-45% per TTE 12/17/16 - DM - Hgb A1c 8.7% - HTN associated with DM - acute encephalopathy with anoxic brain injury - unstageable decubitus ulcer of coccyx, no evidence of infection - dysphagia s/p G-tube placement 02/08/2017 NOTE: Pt completed 6 weeks (12/03/2016-01/15/2017) of antibiotics to treat 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 and left fourth proximal phalanx ; s/p pip/tazo 12/03/16-01/08/17; linezolid 01/08/17-01/20/17; caspofungin 01/12/17-01/21/17, restarted recommendations: - continue renally dosed cefepime (restarted on 02/02/2017-) and IV tobramycin (-) for pseudomonas - continue empiric caspofungin (02/04/2017-) - continue nystatin for thrush - wound care of the coccyx and upper back Management d/w ALINA Motley and Dr. Wilson Consultation Date/Type/Reason Admit Date/Time Dec 02, 2016 at 21:01 Initial Consult Date 12/08/16 Type of Consultation: cardiology Referring Provider: VIET PARKER MD 24 HR Interval Summary Free Text/Dictation Afebrile, low H/H, BP stable.dw staff Subjective hx not possible: pt non-verbal Constitutional: requiring IVF, requiring O2 Exam/Review of Systems Vital Signs Vitals Vital Signs Date Time Temp Pulse Resp B/P Pulse Ox O2 Delivery O2 Flow Rate FiO2 02/09/17 16:22 70 02/09/17 16:04 98.2 18 149/87 99 02/09/17 13:00 35 02/08/17 08:30 Bag Valve Mask 02/07/17 18:08 5.0 Intake and Output 02/08/17 02/08/17 02/09/17 15:00 23:00 07:00 Intake Total 50 ml 300 ml 60 ml Output Total 300 ml 700 ml Balance 50 ml 0 ml -640 ml Exam Constitutional: non-verbal Respiratory: diminished breath sounds Cardiovascular: nl pulses, regular rate and rhythm Gastrointestinal: non-tender, other, soft Genitourinary - Male: other Musculoskeletal: muscle weakness Extremities: normal pulses Neurological: unresponsive Skin: other (sacral.coccyx decubs) Results Result Diagram: 02/09/17 0701 02/09/17 0707 Results 24 hrs Laboratory Tests Test 02/08/17 20:46 02/09/17 00:34 02/09/17 06:00 02/09/17 07:01 Bedside Glucose 143 123 85 White Blood Count 9.3 # Red Blood Count 2.72 L Hemoglobin 7.8 L Hematocrit 24.7 L Mean Corpuscular Volume 90.8 Mean Corpuscular Hemoglobin 28.7 L Mean Corpuscular Hemoglobin Concent 31.6 L Red Cell Distribution Width 14.8 H Platelet Count 228 Mean Platelet Volume 10.2 Neutrophils % 74.5 Lymphocytes % 14.3 L Monocytes % 8.5 Eosinophils % 0.6 Basophils % 0.1 Nucleated Red Blood Cells % 0.0 Neutrophils # 6.9 Lymphocytes # 1.3 Monocytes # 0.8 Eosinophils # 0.1 Basophils # 0.0 Nucleated Red Blood Cells # 0.0 Test 02/09/17 07:07 02/09/17 08:18 02/09/17 13:08 Sodium Level 140 Potassium Level 4.1 Chloride Level 101 Carbon Dioxide Level 31 Anion Gap 12 Blood Urea Nitrogen 56 H Creatinine 1.46 H Glucose Level 89 Calcium Level 8.2 L Bedside Glucose 99 138 Medications Medications Current Medications Ondansetron HCl (Zofran Inj) 4 mg Q6H PRN IV NAUSEA AND/OR VOMITING Last administered on 12/13/16 01:13; Admin Dose 4 MG; Start 12/02/16 at 22:30 Miscellaneous Information 1 ea NOTE XX ; Start 12/02/16 at 23:00 Glucose (Glutose) 15 gm Q15M PRN PO DECREASED GLUCOSE; Start 12/02/16 at 23:00 Glucose (Glutose) 22.5 gm Q15M PRN PO DECREASED GLUCOSE; Start 12/02/16 at 23: 00 Dextrose (D50w Syringe) 25 ml Q15M PRN IV DECREASED GLUCOSE Last administered on 01/26/17 05:21; Admin Dose 25 ML; Start 12/02/16 at 23:00 Dextrose (D50w Syringe) 50 ml Q15M PRN IV DECREASED GLUCOSE Last administered on 01/23/17 04:58; Admin Dose 50 ML; Start 12/02/16 at 23:00 Glucagon (Glucagen) 1 mg Q15M PRN IM DECREASED GLUCOSE; Start 12/02/16 at 23:00 Glucose (Glutose) 15 gm Q15M PRN BUCCAL DECREASED GLUCOSE; Start 12/02/16 at 23 :00 Acetaminophen (Tylenol Supp) 650 mg Q6H PRN [place] ELEVATED TEMPERATURE Last administered on 01/13/17 20:32; Admin Dose 650 MG; Start 12/09/16 at 17:00 Hydralazine HCl (Apresoline) 10 mg Q6H PRN IV SBP>150mm hg Last administered on 12/19/16 08:50; Admin Dose 10 MG; Start 12/11/16 at 10:30 Morphine Sulfate (morphine) 2 mg Q2H PRN IV PAIN LEVEL 4-7; Start 12/13/16 at 10 :00 Collagenase (Santyl) 1 applic DAILY TOP Last administered on 02/08/17 16:36; Admin Dose 1 APPLIC; Start 01/04/17 at 09:00 Metoprolol Tartrate (Lopressor) 5 mg Q4 PRN IV FOR H.R>110; Start 01/12/17 at 17:30 Acetaminophen (Tylenol Liquid) 650 mg Q6H PRN NGT PAIN AND OR ELEVATED TEMP Last administered on 02/03/17 17:37; Admin Dose 650 MG; Start 01/13/17 at 23:30 Acetaminophen/ Hydrocodone Bitart ([place] (5/325)) 1 tab Q6H PRN NGT PAIN LEVEL 4-7; Start 01/13/17 at 23:30 Levetiracetam (Keppra Liquid) 1,000 mg DAILY NGT Last administered on 08:46; Admin Dose 1,000 MG; Start 01/14/17 at 09:00 Meclizine HCl (Antivert) 25 mg TID PRN NGT dizziness; Start 01/13/17 at 20:00 Zolpidem Tartrate (Ambien) 5 mg HS PRN NGT INSOMNIA; Start 01/13/17 at 20:00 Docusate Sodium (Colace Liquid Cup) 100 mg BID NGT Last administered on 08:46; Admin Dose 100 MG; Start 01/13/17 at 21:00 Amiodarone HCl (Cordarone) 200 mg Q8 NGT Last administered on 02/09/17 13:09; Admin Dose 200 MG; Start 01/17/17 at 14:00 Metoprolol Tartrate (Lopressor) 12.5 mg BID NGT Last administered on 02/08/17 08:12; Admin Dose 12.5 MG; Start 01/24/17 at 21:00 Nystatin 5 ml 5 ml Q6 PO Last administered on 02/09/17 12:12; Admin Dose 5 ML ; Start 01/31/17 at 12:00 Cefepime HCl (Maxipime 1gm/50 ml (Pmx)) 50 ml @ 100 mls/hr DAILY IVPB Last administered on 02/09/17 08:46; Admin Dose 100 MLS/HR; Start 02/02/17 at 11:00 Insulin Glargine (Lantus) 40 unit DAILY@20 SC Last administered on 02/08/17 20 :50; Admin Dose 40 UNIT; Start 02/04/17 at 20:00 Tobramycin TOBRAMYCIN PER PHARMACY NOTE XX ; Start 02/04/17 at 20:30 Caspofungin/ Sodium Chloride (Cancidas/NS) 250 ml @ 250 mls/hr Q24H IVPB Last administered on 02/08/17 21:58; Admin Dose 250 MLS/HR; Start 02/05/17 at 22:00 Lansoprazole (Prevacid) 30 mg DAILY@06 GTB Last administered on 02/09/17 06:53 ; Admin Dose 30 MG; Start 02/09/17 at 06:00 Insulin Aspart (Novolog Insulin Pen) NOVOLOG *MODERATE* ALGORI... Q6 SC ; Start 02/09/17 at 18:00 YULIANA SIMMONS Feb 09, 2017 16:47
--- NOTE | 2017-02-09 17:03 | PN ---
Date/Time of Note Date/Time of Note DATE: 02/09/17 TIME: 16:59 Assessment/Plan VTE Prophylaxis VTE Prophylaxis Intervention: SCD's Lines/Catheters IV Catheter Type (from [place]): [place] line still needed: Yes Urinary Cath still in place: No Assessment/Plan Chief Complaint/Hosp Course Patient started on G-tube feeding today increased gradually to the goal, monitor residual, no bleeding from tracheostomy site. Hemoglobin 7.8 today in the morning, patient underwent hemodialysis after lab draw. We will recheck H& H tomorrow, transfuse if hemoglobin below 8. ASSESSMENT AND PLAN: - Dysphagia. S/p G-tube by Dr. De La Fuente. Continue G-tube feeding monitor residual. - Possible recurrent sepsis, resolving. continue antibiotics per ID. Dr Dallas group is following infection disease consultation. - Anemia of blood loss. Continue to monitor H&H, transfuse as needed. - Status post cardiopulmonary arrest on 12/09/2016 and 01/08/2017. Continue ventilatory support. - Anoxic encephalopathy. Continue Keppra. - Status post tracheostomy on 01/23/2017. - End-stage renal disease. Continue hemodialysis per nephrology. - Paroxysmal atrial fibrillation. Eliquis is currently held due to bleeding. - Diabetes mellitus type 2. Continue Lantus and NovoLog with sliding scale coverage with Accu-Cheks q. 4 hours. - Diabetic foot ulcer. Continue current wound care. - Osteomyelitis of the distal phalanx of the great left toe. Completed treatment for antibiotics. Continue sequential compression device for deep venous thrombosis prophylaxis and Protonix for peptic ulcer disease prophylaxis. Further recommendations based on clinical course. Plan of care discussed with Dr. Heredia. Problems: Exam/Review of Systems Vital Signs Vitals Vital Signs Date Time Temp Pulse Resp B/P Pulse Ox O2 Delivery O2 Flow Rate FiO2 02/09/17 16:22 70 02/09/17 16:04 98.2 18 149/87 99 02/09/17 13:00 35 02/08/17 08:30 Bag Valve Mask 02/07/17 18:08 5.0 Intake and Output 02/08/17 02/08/17 02/09/17 15:00 23:00 07:00 Intake Total 50 ml 300 ml 60 ml Output Total 300 ml 700 ml Balance 50 ml 0 ml -640 ml Exam Constitutional: non-verbal Head: atraumatic, normocephalic ENMT: other (Nasogastric tube) Neck: other (Tracheostomy), supple Respiratory: diminished breath sounds Cardiovascular: nl pulses Gastrointestinal: non-tender, soft, GT Neurological: unresponsive Results Result Diagram: 02/09/17 0701 02/09/17 0707 Results 24 hrs Laboratory Tests Test 02/08/17 20:46 02/09/17 00:34 02/09/17 06:00 02/09/17 07:01 Bedside Glucose 143 123 85 White Blood Count 9.3 # Red Blood Count 2.72 L Hemoglobin 7.8 L Hematocrit 24.7 L Mean Corpuscular Volume 90.8 Mean Corpuscular Hemoglobin 28.7 L Mean Corpuscular Hemoglobin Concent 31.6 L Red Cell Distribution Width 14.8 H Platelet Count 228 Mean Platelet Volume 10.2 Neutrophils % 74.5 Lymphocytes % 14.3 L Monocytes % 8.5 Eosinophils % 0.6 Basophils % 0.1 Nucleated Red Blood Cells % 0.0 Neutrophils # 6.9 Lymphocytes # 1.3 Monocytes # 0.8 Eosinophils # 0.1 Basophils # 0.0 Nucleated Red Blood Cells # 0.0 Test 02/09/17 07:07 02/09/17 08:18 02/09/17 13:08 Sodium Level 140 Potassium Level 4.1 Chloride Level 101 Carbon Dioxide Level 31 Anion Gap 12 Blood Urea Nitrogen 56 H Creatinine 1.46 H Glucose Level 89 Calcium Level 8.2 L Bedside Glucose 99 138 Medications Medications Current Medications Ondansetron HCl (Zofran Inj) 4 mg Q6H PRN IV NAUSEA AND/OR VOMITING Last administered on 12/13/16 01:13; Admin Dose 4 MG; Start 12/02/16 at 22:30 Miscellaneous Information 1 ea NOTE XX ; Start 12/02/16 at 23:00 Glucose (Glutose) 15 gm Q15M PRN PO DECREASED GLUCOSE; Start 12/02/16 at 23:00 Glucose (Glutose) 22.5 gm Q15M PRN PO DECREASED GLUCOSE; Start 12/02/16 at 23: 00 Dextrose (D50w Syringe) 25 ml Q15M PRN IV DECREASED GLUCOSE Last administered on 01/26/17 05:21; Admin Dose 25 ML; Start 12/02/16 at 23:00 Dextrose (D50w Syringe) 50 ml Q15M PRN IV DECREASED GLUCOSE Last administered on 01/23/17 04:58; Admin Dose 50 ML; Start 12/02/16 at 23:00 Glucagon (Glucagen) 1 mg Q15M PRN IM DECREASED GLUCOSE; Start 12/02/16 at 23:00 Glucose (Glutose) 15 gm Q15M PRN BUCCAL DECREASED GLUCOSE; Start 12/02/16 at 23 :00 Acetaminophen (Tylenol Supp) 650 mg Q6H PRN [place] ELEVATED TEMPERATURE Last administered on 01/13/17 20:32; Admin Dose 650 MG; Start 12/09/16 at 17:00 Hydralazine HCl (Apresoline) 10 mg Q6H PRN IV SBP>150mm hg Last administered on 12/19/16 08:50; Admin Dose 10 MG; Start 12/11/16 at 10:30 Morphine Sulfate (morphine) 2 mg Q2H PRN IV PAIN LEVEL 4-7; Start 12/13/16 at 10 :00 Collagenase (Santyl) 1 applic DAILY TOP Last administered on 02/08/17 16:36; Admin Dose 1 APPLIC; Start 01/04/17 at 09:00 Metoprolol Tartrate (Lopressor) 5 mg Q4 PRN IV FOR H.R>110; Start 01/12/17 at 17:30 Acetaminophen (Tylenol Liquid) 650 mg Q6H PRN NGT PAIN AND OR ELEVATED TEMP Last administered on 02/03/17 17:37; Admin Dose 650 MG; Start 01/13/17 at 23:30 Acetaminophen/ Hydrocodone Bitart ([place] (5/325)) 1 tab Q6H PRN NGT PAIN LEVEL 4-7; Start 01/13/17 at 23:30 Levetiracetam (Keppra Liquid) 1,000 mg DAILY NGT Last administered on 08:46; Admin Dose 1,000 MG; Start 01/14/17 at 09:00 Meclizine HCl (Antivert) 25 mg TID PRN NGT dizziness; Start 01/13/17 at 20:00 Zolpidem Tartrate (Ambien) 5 mg HS PRN NGT INSOMNIA; Start 01/13/17 at 20:00 Docusate Sodium (Colace Liquid Cup) 100 mg BID NGT Last administered on 08:46; Admin Dose 100 MG; Start 01/13/17 at 21:00 Amiodarone HCl (Cordarone) 200 mg Q8 NGT Last administered on 02/09/17 13:09; Admin Dose 200 MG; Start 01/17/17 at 14:00 Metoprolol Tartrate (Lopressor) 12.5 mg BID NGT Last administered on 02/08/17 08:12; Admin Dose 12.5 MG; Start 01/24/17 at 21:00 Nystatin 5 ml 5 ml Q6 PO Last administered on 02/09/17 12:12; Admin Dose 5 ML ; Start 01/31/17 at 12:00 Cefepime HCl (Maxipime 1gm/50 ml (Pmx)) 50 ml @ 100 mls/hr DAILY IVPB Last administered on 02/09/17 08:46; Admin Dose 100 MLS/HR; Start 02/02/17 at 11:00 Insulin Glargine (Lantus) 40 unit DAILY@20 SC Last administered on 02/08/17 20 :50; Admin Dose 40 UNIT; Start 02/04/17 at 20:00 Tobramycin TOBRAMYCIN PER PHARMACY NOTE XX ; Start 02/04/17 at 20:30 Caspofungin/ Sodium Chloride (Cancidas/NS) 250 ml @ 250 mls/hr Q24H IVPB Last administered on 02/08/17 21:58; Admin Dose 250 MLS/HR; Start 02/05/17 at 22:00 Lansoprazole (Prevacid) 30 mg DAILY@06 GTB Last administered on 02/09/17 06:53 ; Admin Dose 30 MG; Start 02/09/17 at 06:00 Insulin Aspart (Novolog Insulin Pen) NOVOLOG *MODERATE* ALGORI... Q6 SC ; Start 02/09/17 at 18:00 KIMBERLY NOYOLA Feb 09, 2017 17:03
--- NOTE | 2017-02-09 17:16 | CONS ---
Date/Time of Note Date/Time of Note DATE: 02/09/17 TIME: 17:15 Assessment/Plan Assessment/Plan Additional Assessment/Plan -S/p cardiopulmonary arrest on 12/09/2016 and on 01/08/2017 - 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 Blood cultures from HD catheter on 12/13/2016 are negative to date. 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 MRI on 12/06/2016 and bone scan on showed 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 and left fourth proximal phalanx. superficial swab grew inna only - s/p right pleural effusion s/p thoracentesis with .9L removed on 12/16/2016 - severe , EF 40-45% per TTE 12/17/16 - DM - Hgb A1c 8.7% - HTN associated with DM Tracheostomy site bleeding Plan: HD today done 1.8 liter s/p Tracheostomy, on ventilator pt will need HD palcement at a unit where they can do a HD for pt with tracheostomy and PEG tube placemen t- adult protective caseworker has been instructed to set up [facility] pt has severe , very labile BP sometimes with HD will continue to follow up for HD need Consultation Date/Type/Reason Admit Date/Time Dec 02, 2016 at 21:01 Initial Consult Date Type of Consultation: NEPHROLOGY Referring Provider: VIET PARKER MD Exam/Review of Systems Vital Signs Vitals Vital Signs Date Time Temp Pulse Resp B/P Pulse Ox O2 Delivery O2 Flow Rate FiO2 02/09/17 16:22 70 02/09/17 16:04 98.2 18 149/87 99 02/09/17 13:00 35 02/08/17 08:30 Bag Valve Mask 02/07/17 18:08 5.0 Intake and Output 6/02/08/17 02/09/17 15:00 23:00 07:00 Intake Total 50 ml 300 ml 60 ml Output Total 300 ml 700 ml Balance 50 ml 0 ml -640 ml Results Result Diagram: 02/09/17 0701 02/09/17 0707 Results 24 hrs Laboratory Tests Test 02/08/17 20:46 02/09/17 00:34 02/09/17 06:00 02/09/17 07:01 Bedside Glucose 143 123 85 White Blood Count 9.3 # Red Blood Count 2.72 L Hemoglobin 7.8 L Hematocrit 24.7 L Mean Corpuscular Volume 90.8 Mean Corpuscular Hemoglobin 28.7 L Mean Corpuscular Hemoglobin Concent 31.6 L Red Cell Distribution Width 14.8 H Platelet Count 228 Mean Platelet Volume 10.2 Neutrophils % 74.5 Lymphocytes % 14.3 L Monocytes % 8.5 Eosinophils % 0.6 Basophils % 0.1 Nucleated Red Blood Cells % 0.0 Neutrophils # 6.9 Lymphocytes # 1.3 Monocytes # 0.8 Eosinophils # 0.1 Basophils # 0.0 Nucleated Red Blood Cells # 0.0 Test 02/09/17 07:07 02/09/17 08:18 02/09/17 13:08 Sodium Level 140 Potassium Level 4.1 Chloride Level 101 Carbon Dioxide Level 31 Anion Gap 12 Blood Urea Nitrogen 56 H Creatinine 1.46 H Glucose Level 89 Calcium Level 8.2 L Bedside Glucose 99 138 Medications Medications Current Medications Ondansetron HCl (Zofran Inj) 4 mg Q6H PRN IV NAUSEA AND/OR VOMITING Last administered on 12/13/16 01:13; Admin Dose 4 MG; Start 12/02/16 at 22:30 Miscellaneous Information 1 ea NOTE XX ; Start 12/02/16 at 23:00 Glucose (Glutose) 15 gm Q15M PRN PO DECREASED GLUCOSE; Start 12/02/16 at 23:00 Glucose (Glutose) 22.5 gm Q15M PRN PO DECREASED GLUCOSE; Start 12/02/16 at 23: 00 Dextrose (D50w Syringe) 25 ml Q15M PRN IV DECREASED GLUCOSE Last administered on 01/26/17 05:21; Admin Dose 25 ML; Start 12/02/16 at 23:00 Dextrose (D50w Syringe) 50 ml Q15M PRN IV DECREASED GLUCOSE Last administered on 01/23/17 04:58; Admin Dose 50 ML; Start 12/02/16 at 23:00 Glucagon (Glucagen) 1 mg Q15M PRN IM DECREASED GLUCOSE; Start 12/02/16 at 23:00 Glucose (Glutose) 15 gm Q15M PRN BUCCAL DECREASED GLUCOSE; Start 12/02/16 at 23 :00 Acetaminophen (Tylenol Supp) 650 mg Q6H PRN [place] ELEVATED TEMPERATURE Last administered on 01/13/17 20:32; Admin Dose 650 MG; Start 12/09/16 at 17:00 Hydralazine HCl (Apresoline) 10 mg Q6H PRN IV SBP>150mm hg Last administered on 12/19/16 08:50; Admin Dose 10 MG; Start 12/11/16 at 10:30 Morphine Sulfate (morphine) 2 mg Q2H PRN IV PAIN LEVEL 4-7; Start 12/13/16 at 10 :00 Collagenase (Santyl) 1 applic DAILY TOP Last administered on 02/08/17 16:36; Admin Dose 1 APPLIC; Start 01/04/17 at 09:00 Metoprolol Tartrate (Lopressor) 5 mg Q4 PRN IV FOR H.R>110; Start 01/12/17 at 17:30 Acetaminophen (Tylenol Liquid) 650 mg Q6H PRN NGT PAIN AND OR ELEVATED TEMP Last administered on 02/03/17 17:37; Admin Dose 650 MG; Start 01/13/17 at 23:30 Acetaminophen/ Hydrocodone Bitart ([place] (5/325)) 1 tab Q6H PRN NGT PAIN LEVEL 4-7; Start 01/13/17 at 23:30 Levetiracetam (Keppra Liquid) 1,000 mg DAILY NGT Last administered on 08:46; Admin Dose 1,000 MG; Start 01/14/17 at 09:00 Meclizine HCl (Antivert) 25 mg TID PRN NGT dizziness; Start 01/13/17 at 20:00 Zolpidem Tartrate (Ambien) 5 mg HS PRN NGT INSOMNIA; Start 01/13/17 at 20:00 Docusate Sodium (Colace Liquid Cup) 100 mg BID NGT Last administered on 08:46; Admin Dose 100 MG; Start 01/13/17 at 21:00 Amiodarone HCl (Cordarone) 200 mg Q8 NGT Last administered on 02/09/17 13:09; Admin Dose 200 MG; Start 01/17/17 at 14:00 Metoprolol Tartrate (Lopressor) 12.5 mg BID NGT Last administered on 02/08/17 08:12; Admin Dose 12.5 MG; Start 01/24/17 at 21:00 Nystatin 5 ml 5 ml Q6 PO Last administered on 02/09/17 12:12; Admin Dose 5 ML ; Start 01/31/17 at 12:00 Cefepime HCl (Maxipime 1gm/50 ml (Pmx)) 50 ml @ 100 mls/hr DAILY IVPB Last administered on 02/09/17 08:46; Admin Dose 100 MLS/HR; Start 02/02/17 at 11:00 Insulin Glargine (Lantus) 40 unit DAILY@20 SC Last administered on 02/08/17 20 :50; Admin Dose 40 UNIT; Start 02/04/17 at 20:00 Tobramycin TOBRAMYCIN PER PHARMACY NOTE XX ; Start 02/04/17 at 20:30 Caspofungin/ Sodium Chloride (Cancidas/NS) 250 ml @ 250 mls/hr Q24H IVPB Last administered on 02/08/17 21:58; Admin Dose 250 MLS/HR; Start 02/05/17 at 22:00 Lansoprazole (Prevacid) 30 mg DAILY@06 GTB Last administered on 02/09/17 06:53 ; Admin Dose 30 MG; Start 02/09/17 at 06:00 Insulin Aspart (Novolog Insulin Pen) NOVOLOG *MODERATE* ALGORI... Q6 SC ; Start 02/09/17 at 18:00 TASHIA MCGARRY MD Feb 09, 2017 17:16
[2017-02-09] MEDS ORDERED: [UNRECOGNIZED DRUG - REMARK] XX SCH (20:00)
[2017-02-09] MEDS: INSULIN GLARGINE [LANtus] 3 ML PEN SC SCH (21:25)
[2017-02-09] MEDS: CASPOFUNGIN 50 MG in SOD CHLORIDE 0.9% 250 ML IVPB SCH (21:28)
[2017-02-09] MEDS: TOBRAMYCIN 100 MG in SOD CHLORIDE 0.9% 50 ML IVPB SCH (23:00)
[2017-02-10] VITALS (23 sets, daily range): BP systolic 115–138; BP diastolic 54–62; PULSE 58–73; RESP 16–19
[2017-02-10] MEDS: NYSTATIN SUSP 5 ML CUP PO SCH ×5 (00:53→23:22)
[2017-02-10] MEDS: INSULIN ASPART [NOVOLOG] 3 ML PEN SC SCH ×5 (00:55→23:23)
[2017-02-10] MEDS: ALBUTEROL 18 GM INHALER INH SCH ×4 (00:58→19:18)
[2017-02-10] MEDS: AMIODARONE 200 MG TAB NGT SCH ×2 (05:42→20:45)
[2017-02-10] MEDS: LANSOPRAZOLE 30 MG CAP GTB SCH (05:43)
[2017-02-10 06:52] LABS: ADD SCAN DIFF NO
[2017-02-10 07:00] LABS: BASOPHILS % 0.2 % (0.0-2.0); EOSINOPHILS # 0.1 10^3/ul (0.0-0.5); EOSINOPHILS % 0.7 % (0.0-7.0); HEMATOCRIT 25.4 % (42.0-52.0); LYMPHOCYTES % 11.5 % (15.0-51.0); MEAN CORPUSCULAR HEMOGLOBIN 28.2 pg (29.0-33.0); MEAN CORPUSCULAR HGB CONC 31.5 g/dl (32.0-37.0); MEAN CORPUSCULAR VOLUME 89.4 fl (82.0-101.0); MEAN PLATELET VOLUME 9.9 fl (7.4-10.4); MONOCYTE # 0.6 10^3/ul (0.3-0.9); MONOCYTES % 7.3 % (0.0-11.0); NEUTROPHIL # 6.6 10^3/ul (1.6-7.5); PLATELET COUNT 252 10^3/UL (140-415); RED BLOOD COUNT 2.84 10^6/ul (4.70-6.10); RED CELL DISTRIBUTION WIDTH 14.5 % (11.5-14.5); WHITE BLOOD COUNT 8.8 10^3/ul (4.8-10.8)
[2017-02-10 07:33] LABS: CALCIUM 8.2 mg/dl (8.4-10.2); CREATININE 1.29 mg/dl (0.61-1.24); POTASSIUM 3.9 mmol/L (3.5-5.1)
[2017-02-10] MEDS: COLLAGENASE 30 GM TUBE TOP SCH (09:00)
[2017-02-10] MEDS: METOPROLOL 25 MG TAB NGT SCH ×2 (09:00→20:44)
[2017-02-10] MEDS: CEFEPIME 1GM/50 ML (PMX) 50 ML IVPB SCH (09:55)
[2017-02-10] MEDS: DOCUSATE SODIUM 10 MG/ML (10ML CUP) NGT SCH ×2 (09:56→20:44)
[2017-02-10] MEDS: LEVETIRACETAM (100 MG/ML) 5ML CUP NGT SCH (09:56)
--- NOTE | 2017-02-10 11:35 | CONS ---
Date/Time of Note Date/Time of Note DATE: 02/10/17 TIME: 11:33 Assessment/Plan Assessment/Plan Additional Assessment/Plan Ventilator setting; AC of 16, tidal volume 500, PEEP of 5, 35% FiO2. Assessment recommendations; 1. Patient admitted for respiratory failure due to flash pulmonary edema status post CPR with ensuing severe anoxic brain injury. 2. Renal failure, on hemodialysis. 3. Tracheostomy insertion site bleeding without any further bleeding over the last 72 hours. Continue current treatment. Prognosis is poor. Consultation Date/Type/Reason Admit Date/Time Dec 02, 2016 at 21:01 Initial Consult Date 12/03/16 Type of Consultation: Pulmonary Referring Provider: VIET PARKER MD 24 HR Interval Summary Free Text/Dictation Patient condition remains unchanged. Has been transferred out of ICU to telemetry unit. Remains unresponsive. Has remained hemodynamically stable. General exam; elderly male, on ventilator via tracheostomy currently no distress. Remains unresponsive. Exam/Review of Systems Vital Signs Vitals Vital Signs Date Time Temp Pulse Resp B/P Pulse Ox O2 Delivery O2 Flow Rate FiO2 02/10/17 11:31 98.0 68 19 119/58 98 02/10/17 09:16 35 02/08/17 08:30 Bag Valve Mask 02/07/17 18:08 5.0 Intake and Output 02/09/17 02/09/17 02/10/17 15:00 23:00 07:00 Intake Total 250 ml 950 ml 910 ml Output Total 2000 ml 400 ml 500 ml Balance -1750 ml 550 ml 410 ml Exam HEENT exam; supple neck, no JVD. No lymphadenopathy. Midline trachea. No thyromegaly. Tracheostomy in place without any bleeding seen. There is mild crusting of blood around the insertion site. Patient is edentulous. Chest exam; clear to ulceration. S1-S2 audible, no murmurs. Regular rhythm. Abdomen exam; soft, nontender distended. G-tube in place. Bowel sounds audible. Extremity exam; no peripheral edema. [employer] exam; patient remains unresponsive. Results Result Diagram: 02/10/17 0640 02/10/17 0640 Results 24 hrs Laboratory Tests Test 02/09/17 13:08 02/09/17 17:36 02/10/17 00:52 02/10/17 05:41 Bedside Glucose 138 173 199 178 Test 02/10/17 06:40 White Blood Count 8.8 Red Blood Count 2.84 L Hemoglobin 8.0 L Hematocrit 25.4 L Mean Corpuscular Volume 89.4 Mean Corpuscular Hemoglobin 28.2 L Mean Corpuscular Hemoglobin Concent 31.5 L Red Cell Distribution Width 14.5 Platelet Count 252 Mean Platelet Volume 9.9 Neutrophils % 76.0 Lymphocytes % 11.5 L Monocytes % 7.3 Eosinophils % 0.7 Basophils % 0.2 Nucleated Red Blood Cells % 0.0 Neutrophils # 6.6 Lymphocytes # 1.0 Monocytes # 0.6 Eosinophils # 0.1 Basophils # 0.0 Nucleated Red Blood Cells # 0.0 Sodium Level 139 Potassium Level 3.9 Chloride Level 98 Carbon Dioxide Level 33 H Anion Gap 12 Blood Urea Nitrogen 44 #H Creatinine 1.29 H Glucose Level 188 Calcium Level 8.2 L Medications Medications Current Medications Ondansetron HCl (Zofran Inj) 4 mg Q6H PRN IV NAUSEA AND/OR VOMITING Last administered on 12/13/16 01:13; Admin Dose 4 MG; Start 12/02/16 at 22:30 Miscellaneous Information 1 ea NOTE XX ; Start 12/02/16 at 23:00 Glucose (Glutose) 15 gm Q15M PRN PO DECREASED GLUCOSE; Start 12/02/16 at 23:00 Glucose (Glutose) 22.5 gm Q15M PRN PO DECREASED GLUCOSE; Start 12/02/16 at 23: 00 Dextrose (D50w Syringe) 25 ml Q15M PRN IV DECREASED GLUCOSE Last administered on 01/26/17 05:21; Admin Dose 25 ML; Start 12/02/16 at 23:00 Dextrose (D50w Syringe) 50 ml Q15M PRN IV DECREASED GLUCOSE Last administered on 01/23/17 04:58; Admin Dose 50 ML; Start 12/02/16 at 23:00 Glucagon (Glucagen) 1 mg Q15M PRN IM DECREASED GLUCOSE; Start 12/02/16 at 23:00 Glucose (Glutose) 15 gm Q15M PRN BUCCAL DECREASED GLUCOSE; Start 12/02/16 at 23 :00 Acetaminophen (Tylenol Supp) 650 mg Q6H PRN [place] ELEVATED TEMPERATURE Last administered on 01/13/17 20:32; Admin Dose 650 MG; Start 12/09/16 at 17:00 Hydralazine HCl (Apresoline) 10 mg Q6H PRN IV SBP>150mm hg Last administered on 12/19/16 08:50; Admin Dose 10 MG; Start 12/11/16 at 10:30 Morphine Sulfate (morphine) 2 mg Q2H PRN IV PAIN LEVEL 4-7; Start 12/13/16 at 10 :00 Collagenase (Santyl) 1 applic DAILY TOP Last administered on 02/10/17 09:00; Admin Dose 1 APPLIC; Start 01/04/17 at 09:00 Metoprolol Tartrate (Lopressor) 5 mg Q4 PRN IV FOR H.R>110; Start 01/12/17 at 17:30 Acetaminophen (Tylenol Liquid) 650 mg Q6H PRN NGT PAIN AND OR ELEVATED TEMP Last administered on 02/03/17 17:37; Admin Dose 650 MG; Start 01/13/17 at 23:30 Acetaminophen/ Hydrocodone Bitart ([place] (5/325)) 1 tab Q6H PRN NGT PAIN LEVEL 4-7; Start 01/13/17 at 23:30 Levetiracetam (Keppra Liquid) 1,000 mg DAILY NGT Last administered on 09:56; Admin Dose 1,000 MG; Start 01/14/17 at 09:00 Meclizine HCl (Antivert) 25 mg TID PRN NGT dizziness; Start 01/13/17 at 20:00 Zolpidem Tartrate (Ambien) 5 mg HS PRN NGT INSOMNIA; Start 01/13/17 at 20:00 Docusate Sodium (Colace Liquid Cup) 100 mg BID NGT Last administered on 09:56; Admin Dose 100 MG; Start 01/13/17 at 21:00 Amiodarone HCl (Cordarone) 200 mg Q8 NGT Last administered on 02/10/17 05:42; Admin Dose 200 MG; Start 01/17/17 at 14:00 Metoprolol Tartrate (Lopressor) 12.5 mg BID NGT Last administered on 02/08/17 08:12; Admin Dose 12.5 MG; Start 01/24/17 at 21:00 Nystatin 5 ml 5 ml Q6 PO Last administered on 02/10/17 05:42; Admin Dose 5 ML ; Start 01/31/17 at 12:00 Cefepime HCl (Maxipime 1gm/50 ml (Pmx)) 50 ml @ 100 mls/hr DAILY IVPB Last administered on 02/10/17 09:55; Admin Dose 100 MLS/HR; Start 02/02/17 at 11:00 Insulin Glargine (Lantus) 40 unit DAILY@20 SC Last administered on 02/09/17 21 :25; Admin Dose 40 UNIT; Start 02/04/17 at 20:00 Tobramycin TOBRAMYCIN PER PHARMACY NOTE XX ; Start 02/04/17 at 20:30 Caspofungin/ Sodium Chloride (Cancidas/NS) 250 ml @ 250 mls/hr Q24H IVPB Last administered on 02/09/17 21:28; Admin Dose 250 MLS/HR; Start 02/05/17 at 22:00 Lansoprazole (Prevacid) 30 mg DAILY@06 GTB Last administered on 02/10/17 05:43 ; Admin Dose 30 MG; Start 02/09/17 at 06:00 Insulin Aspart (Novolog Insulin Pen) NOVOLOG *MODERATE* ALGORI... Q6 SC Last administered on 02/10/17 05:45; Admin Dose 2 UNIT; Start 02/09/17 at 18:00 IKE MULLER Feb 10, 2017 11:35
--- NOTE | 2017-02-10 13:54 | PN ---
Date/Time of Note Date/Time of Note DATE: 02/10/17 TIME: 13:52 Assessment/Plan VTE Prophylaxis VTE Prophylaxis Intervention: other Lines/Catheters IV Catheter Type (from [facility]): [facility] [facility] Urinary Cath still in place: No Assessment/Plan Assessment/Plan - Dysphagia. S/p G-tube by Dr. De La Fuente. Continue G-tube feeding monitor residual. - Possible recurrent sepsis, resolving. continue antibiotics per ID. Dr Celena pritchard is following infection disease consultation. - Anemia of blood loss. Continue to monitor H&H, transfuse as needed. - Status post cardiopulmonary arrest on 12/09/2016 and 01/08/2017. Continue ventilatory support. - Anoxic encephalopathy. Continue Keppra. - Status post tracheostomy on 01/23/2017. - End-stage renal disease. Continue hemodialysis per nephrology. - Paroxysmal atrial fibrillation. Eliquis is currently held due to bleeding. - Diabetes mellitus type 2. Continue Lantus and NovoLog with sliding scale coverage with Accu-Cheks q. 4 hours. - Diabetic foot ulcer. Continue current wound care. - Osteomyelitis of the distal phalanx of the great left toe. Completed treatment for antibiotics. Continue sequential compression device for deep venous thrombosis prophylaxis and Protonix for peptic ulcer disease prophylaxis. Further recommendations based on clinical course. Plan of care discussed with Dr. Heredia. Subjective 24 Hr Interval Summary Free Text/Dictation seems comfortable, afebrile, no new issues reported by staff. Exam/Review of Systems Vital Signs Vitals Vital Signs Date Time Temp Pulse Resp B/P Pulse Ox O2 Delivery O2 Flow Rate FiO2 02/10/17 12:42 66 02/10/17 11:43 16 100 35 02/10/17 11:31 98.0 119/58 02/08/17 08:30 Bag Valve Mask 02/07/17 18:08 5.0 Intake and Output 02/09/17 02/09/17 02/10/17 15:00 23:00 07:00 Intake Total 250 ml 950 ml 910 ml Output Total 2000 ml 400 ml 500 ml Balance -1750 ml 550 ml 410 ml Exam Constitutional: non-verbal Cardiovascular: nl pulses, regular rate and rhythm Gastrointestinal: non-tender, other (gt intact), soft Results Result Diagram: 02/10/17 0640 02/10/17 0640 Results 24 hrs Laboratory Tests Test 02/09/17 17:36 02/10/17 00:52 02/10/17 05:41 02/10/17 06:40 Bedside Glucose 173 199 178 White Blood Count 8.8 Red Blood Count 2.84 L Hemoglobin 8.0 L Hematocrit 25.4 L Mean Corpuscular Volume 89.4 Mean Corpuscular Hemoglobin 28.2 L Mean Corpuscular Hemoglobin Concent 31.5 L Red Cell Distribution Width 14.5 Platelet Count 252 Mean Platelet Volume 9.9 Neutrophils % 76.0 Lymphocytes % 11.5 L Monocytes % 7.3 Eosinophils % 0.7 Basophils % 0.2 Nucleated Red Blood Cells % 0.0 Neutrophils # 6.6 Lymphocytes # 1.0 Monocytes # 0.6 Eosinophils # 0.1 Basophils # 0.0 Nucleated Red Blood Cells # 0.0 Sodium Level 139 Potassium Level 3.9 Chloride Level 98 Carbon Dioxide Level 33 H Anion Gap 12 Blood Urea Nitrogen 44 #H Creatinine 1.29 H Glucose Level 188 Calcium Level 8.2 L Test 02/10/17 12:54 Bedside Glucose 201 Medications Medications Current Medications Ondansetron HCl (Zofran Inj) 4 mg Q6H PRN IV NAUSEA AND/OR VOMITING Last administered on 12/13/16 01:13; Admin Dose 4 MG; Start 12/02/16 at 22:30 Miscellaneous Information 1 ea NOTE XX ; Start 12/02/16 at 23:00 Glucose (Glutose) 15 gm Q15M PRN PO DECREASED GLUCOSE; Start 12/02/16 at 23:00 Glucose (Glutose) 22.5 gm Q15M PRN PO DECREASED GLUCOSE; Start 12/02/16 at 23: 00 Dextrose (D50w Syringe) 25 ml Q15M PRN IV DECREASED GLUCOSE Last administered on 01/26/17 05:21; Admin Dose 25 ML; Start 12/02/16 at 23:00 Dextrose (D50w Syringe) 50 ml Q15M PRN IV DECREASED GLUCOSE Last administered on 01/23/17 04:58; Admin Dose 50 ML; Start 12/02/16 at 23:00 Glucagon (Glucagen) 1 mg Q15M PRN IM DECREASED GLUCOSE; Start 12/02/16 at 23:00 Glucose (Glutose) 15 gm Q15M PRN BUCCAL DECREASED GLUCOSE; Start 12/02/16 at 23 :00 Acetaminophen (Tylenol Supp) 650 mg Q6H PRN [place] ELEVATED TEMPERATURE Last administered on 01/13/17 20:32; Admin Dose 650 MG; Start 12/09/16 at 17:00 Hydralazine HCl (Apresoline) 10 mg Q6H PRN IV SBP>150mm hg Last administered on 12/19/16 08:50; Admin Dose 10 MG; Start 12/11/16 at 10:30 Morphine Sulfate (morphine) 2 mg Q2H PRN IV PAIN LEVEL 4-7; Start 12/13/16 at 10 :00 Collagenase (Santyl) 1 applic DAILY TOP Last administered on 02/10/17 09:00; Admin Dose 1 APPLIC; Start 01/04/17 at 09:00 Metoprolol Tartrate (Lopressor) 5 mg Q4 PRN IV FOR H.R>110; Start 01/12/17 at 17:30 Acetaminophen (Tylenol Liquid) 650 mg Q6H PRN NGT PAIN AND OR ELEVATED TEMP Last administered on 02/03/17 17:37; Admin Dose 650 MG; Start 01/13/17 at 23:30 Acetaminophen/ Hydrocodone Bitart ([place] (5/325)) 1 tab Q6H PRN NGT PAIN LEVEL 4-7; Start 01/13/17 at 23:30 Levetiracetam (Keppra Liquid) 1,000 mg DAILY NGT Last administered on 09:56; Admin Dose 1,000 MG; Start 01/14/17 at 09:00 Meclizine HCl (Antivert) 25 mg TID PRN NGT dizziness; Start 01/13/17 at 20:00 Zolpidem Tartrate (Ambien) 5 mg HS PRN NGT INSOMNIA; Start 01/13/17 at 20:00 Docusate Sodium (Colace Liquid Cup) 100 mg BID NGT Last administered on 09:56; Admin Dose 100 MG; Start 01/13/17 at 21:00 Amiodarone HCl (Cordarone) 200 mg Q8 NGT Last administered on 02/10/17 05:42; Admin Dose 200 MG; Start 01/17/17 at 14:00 Metoprolol Tartrate (Lopressor) 12.5 mg BID NGT Last administered on 02/08/17 08:12; Admin Dose 12.5 MG; Start 01/24/17 at 21:00 Nystatin 5 ml 5 ml Q6 PO Last administered on 02/10/17 12:46; Admin Dose 5 ML ; Start 01/31/17 at 12:00 Cefepime HCl (Maxipime 1gm/50 ml (Pmx)) 50 ml @ 100 mls/hr DAILY IVPB Last administered on 02/10/17 09:55; Admin Dose 100 MLS/HR; Start 02/02/17 at 11:00 Insulin Glargine (Lantus) 40 unit DAILY@20 SC Last administered on 02/09/17 21 :25; Admin Dose 40 UNIT; Start 02/04/17 at 20:00 Tobramycin TOBRAMYCIN PER PHARMACY NOTE XX ; Start 02/04/17 at 20:30 Caspofungin/ Sodium Chloride (Cancidas/NS) 250 ml @ 250 mls/hr Q24H IVPB Last administered on 02/09/17 21:28; Admin Dose 250 MLS/HR; Start 02/05/17 at 22:00 Lansoprazole (Prevacid) 30 mg DAILY@06 GTB Last administered on 02/10/17 05:43 ; Admin Dose 30 MG; Start 02/09/17 at 06:00 Insulin Aspart (Novolog Insulin Pen) NOVOLOG *MODERATE* ALGORI... Q6 SC Last administered on 02/10/17 12:58; Admin Dose 4 UNIT; Start 02/09/17 at 18:00 YULIANA SIMMONS Feb 10, 2017 13:54
--- NOTE | 2017-02-10 14:22 | CONS ---
Date/Time of Note Date/Time of Note DATE: 02/10/17 TIME: 14:20 Assessment/Plan Assessment/Plan Chief Complaint/Hosp Course IMPRESSION: 1. Atrial fibrillation-Having episodes of PAF with reasonable rate control. Currently in SR 2. Hypotension-borderline and labile 3. Abnormal electrocardiogram with inferolateral T-wave inversions. 4. Respiratory failure-s/p trach placement 5. Nonhealing toe ulceration-vascular following 6. Peripheral arterial disease by arterial ultrasound of the lower extremities this admission. 7. Diabetes mellitus. 8. Fevers. 9. Positive troponin-downtrended 10.Bradycardia-improved/stable 11.-severe by echo 12.Cardiomyopathy-EF 40-45% by echo/36% by stress with no ischemia but positive scar. EF <30% by echo post arrest 14.Encephalopathy-anoxic 15. s/p cardiopulmonary arrest 01/08 Recc: -Tele -serial ecg -HD for volume removal as tolerated -ASA held due to initial trach site bleeding-? ability to resume -Question ability to resume eliquis at this time -Continue PO amio in attempt to maintain SR but will decrase dose -Continue BB as tolerated only following HR/BP closely -Will hold on afterload reduction given severe and thus fixed afterload at valve orifice Problems: Consultation Date/Type/Reason Admit Date/Time Dec 02, 2016 at 21:01 Initial Consult Date 12/03/16 Type of Consultation: cardiology Reason for Consultation CHF//AF Referring Provider: VIET PARKER MD Exam/Review of Systems Vital Signs Vitals Vital Signs Date Time Temp Pulse Resp B/P Pulse Ox O2 Delivery O2 Flow Rate FiO2 02/10/17 12:42 66 02/10/17 11:43 16 100 35 02/10/17 11:31 98.0 119/58 02/08/17 08:30 Bag Valve Mask 02/07/17 18:08 5.0 Intake and Output 02/09/17 02/09/17 02/10/17 15:00 23:00 07:00 Intake Total 250 ml 950 ml 910 ml Output Total 2000 ml 400 ml 500 ml Balance -1750 ml 550 ml 410 ml Exam Review of Systems: CONSTITUTIONAL: No fevers, chills. PULMONARY: trached CARDIOVASCULAR: No obvious chest pain/palpitations GASTROINTESTINAL: No nausea/vomiting. GENITOURINARY: No hematuria/dysuria. MUSCULOSKELETAL: No myagias/arthalgias. PSYCHIATRIC: The patient denies depression. NEUROLOGIC: encephalopathic Constitutional: alert Psych: no complaints Head: normocephalic ENMT: mucosa pink and moist Neck: jvd (9-10 cm water), supple Respiratory: diminished breath sounds (at bases/B) Cardiovascular: regular rate and rhythm Gastrointestinal: non-tender, soft Extremities: edema (trace), normal pulses Neurological: lethargic (encephalopathic) Results Result Diagram: 02/10/17 0640 02/10/17 0640 Results 24 hrs Laboratory Tests Test 02/09/17 17:36 02/10/17 00:52 02/10/17 05:41 02/10/17 06:40 Bedside Glucose 173 199 178 White Blood Count 8.8 Red Blood Count 2.84 L Hemoglobin 8.0 L Hematocrit 25.4 L Mean Corpuscular Volume 89.4 Mean Corpuscular Hemoglobin 28.2 L Mean Corpuscular Hemoglobin Concent 31.5 L Red Cell Distribution Width 14.5 Platelet Count 252 Mean Platelet Volume 9.9 Neutrophils % 76.0 Lymphocytes % 11.5 L Monocytes % 7.3 Eosinophils % 0.7 Basophils % 0.2 Nucleated Red Blood Cells % 0.0 Neutrophils # 6.6 Lymphocytes # 1.0 Monocytes # 0.6 Eosinophils # 0.1 Basophils # 0.0 Nucleated Red Blood Cells # 0.0 Sodium Level 139 Potassium Level 3.9 Chloride Level 98 Carbon Dioxide Level 33 H Anion Gap 12 Blood Urea Nitrogen 44 #H Creatinine 1.29 H Glucose Level 188 Calcium Level 8.2 L Test 02/10/17 12:54 Bedside Glucose 201 Medications Medications Current Medications Ondansetron HCl (Zofran Inj) 4 mg Q6H PRN IV NAUSEA AND/OR VOMITING Last administered on 12/13/16 01:13; Admin Dose 4 MG; Start 12/02/16 at 22:30 Miscellaneous Information 1 ea NOTE XX ; Start 12/02/16 at 23:00 Glucose (Glutose) 15 gm Q15M PRN PO DECREASED GLUCOSE; Start 12/02/16 at 23:00 Glucose (Glutose) 22.5 gm Q15M PRN PO DECREASED GLUCOSE; Start 12/02/16 at 23: 00 Dextrose (D50w Syringe) 25 ml Q15M PRN IV DECREASED GLUCOSE Last administered on 01/26/17 05:21; Admin Dose 25 ML; Start 12/02/16 at 23:00 Dextrose (D50w Syringe) 50 ml Q15M PRN IV DECREASED GLUCOSE Last administered on 01/23/17 04:58; Admin Dose 50 ML; Start 12/02/16 at 23:00 Glucagon (Glucagen) 1 mg Q15M PRN IM DECREASED GLUCOSE; Start 12/02/16 at 23:00 Glucose (Glutose) 15 gm Q15M PRN BUCCAL DECREASED GLUCOSE; Start 12/02/16 at 23 :00 Acetaminophen (Tylenol Supp) [address] ELEVATED TEMPERATURE Last administered on 01/13/17 20:32; Admin Dose 650 MG; Start 12/09/16 at 17:00 Hydralazine HCl (Apresoline) 10 mg Q6H PRN IV SBP>150mm hg Last administered on 12/19/16 08:50; Admin Dose 10 MG; Start 12/11/16 at 10:30 Morphine Sulfate (morphine) 2 mg Q2H PRN IV PAIN LEVEL 4-7; Start 12/13/16 at 10 :00 Collagenase (Santyl) 1 applic DAILY TOP Last administered on 02/10/17 09:00; Admin Dose 1 APPLIC; Start 01/04/17 at 09:00 Metoprolol Tartrate (Lopressor) 5 mg Q4 PRN IV FOR H.R>110; Start 01/12/17 at 17:30 Acetaminophen (Tylenol Liquid) 650 mg Q6H PRN NGT PAIN AND OR ELEVATED TEMP Last administered on 02/03/17 17:37; Admin Dose 650 MG; Start 01/13/17 at 23:30 Acetaminophen/ Hydrocodone Bitart ([place] (5/325)) 1 tab Q6H PRN NGT PAIN LEVEL 4-7; Start 01/13/17 at 23:30 Levetiracetam (Keppra Liquid) 1,000 mg DAILY NGT Last administered on 09:56; Admin Dose 1,000 MG; Start 01/14/17 at 09:00 Meclizine HCl (Antivert) 25 mg TID PRN NGT dizziness; Start 01/13/17 at 20:00 Zolpidem Tartrate (Ambien) 5 mg HS PRN NGT INSOMNIA; Start 01/13/17 at 20:00 Docusate Sodium (Colace Liquid Cup) 100 mg BID NGT Last administered on 09:56; Admin Dose 100 MG; Start 01/13/17 at 21:00 Amiodarone HCl (Cordarone) 200 mg Q8 NGT Last administered on 02/10/17 05:42; Admin Dose 200 MG; Start 01/17/17 at 14:00 Metoprolol Tartrate (Lopressor) 12.5 mg BID NGT Last administered on 02/08/17 08:12; Admin Dose 12.5 MG; Start 01/24/17 at 21:00 Nystatin 5 ml 5 ml Q6 PO Last administered on 02/10/17 12:46; Admin Dose 5 ML ; Start 01/31/17 at 12:00 Cefepime HCl (Maxipime 1gm/50 ml (Pmx)) 50 ml @ 100 mls/hr DAILY IVPB Last administered on 02/10/17 09:55; Admin Dose 100 MLS/HR; Start 02/02/17 at 11:00 Insulin Glargine (Lantus) 40 unit DAILY@20 SC Last administered on 02/09/17 21 :25; Admin Dose 40 UNIT; Start 02/04/17 at 20:00 Tobramycin TOBRAMYCIN PER PHARMACY NOTE XX ; Start 02/04/17 at 20:30 Caspofungin/ Sodium Chloride (Cancidas/NS) 250 ml @ 250 mls/hr Q24H IVPB Last administered on 02/09/17 21:28; Admin Dose 250 MLS/HR; Start 02/05/17 at 22:00 Lansoprazole (Prevacid) 30 mg DAILY@06 GTB Last administered on 02/10/17 05:43 ; Admin Dose 30 MG; Start 02/09/17 at 06:00 Insulin Aspart (Novolog Insulin Pen) NOVOLOG *MODERATE* ALGORI... Q6 SC Last administered on 02/10/17 12:58; Admin Dose 4 UNIT; Start 02/09/17 at 18:00 VICENTE LESLIE Feb 10, 2017 14:22
--- NOTE | 2017-02-10 18:54 | CONS ---
Date/Time of Note Date/Time of Note DATE: 02/10/17 TIME: 18:53 Assessment/Plan Assessment/Plan Chief Complaint/Hosp Course -- recurrent cardiopulmonary arrest on 12/09/2016 and on 01/08/2017 possible recurrent sepsis due to pneumonia - recurrent cardiopulmonary arrest on 12/09/2016 and on 01/08/2017 - s/p sepsis due to possible tracheobronchitis/pneumonia - recurrent pneumonia due to pseudomonas - thrush, refractory to nystatin - funguria - bleeding from trach site - s/p recurrent sepsis - 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 Blood cultures from HD catheter on 12/13/2016 are negative to date. 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 MRI on 12/06/2016 and bone scan on showed 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 and left fourth proximal phalanx. superficial swab grew inna only. At present, no e/o persistent infection - recurrent pleural effusion - s/p right pleural effusion s/p thoracentesis with .9L removed on 12/16/2016; ( Note: there is no pleural fluid cx since orders were placed after Right thoracentesis, and Left thoracentesis was not performed on 12/17/16 d/t insufficient fluid) - ARANZA on CKD that progressed to ESRD and started on HD from 12/09/2016 - oliguria - improved - A fib -> PAF - small nonreversible perfusion abnormality in the inferoapical and inferior carver; EF 36% per Lexiscan 12/24/2016 - severe , EF 40-45% per TTE 12/17/16 - DM - Hgb A1c 8.7% - HTN associated with DM - acute encephalopathy with anoxic brain injury - unstageable decubitus ulcer of coccyx, no evidence of infection - dysphagia s/p G-tube placement 02/08/2017 NOTE: Pt completed 6 weeks (12/03/2016-01/15/2017) of antibiotics to treat 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 and left fourth proximal phalanx ; s/p pip/tazo 12/03/16-01/08/17; linezolid 01/08/17-01/20/17; caspofungin 01/12/17-01/21/17, restarted recommendations: - continue renally dosed cefepime (restarted on 02/02/2017-) and IV tobramycin (-) for pseudomonas - continue empiric caspofungin (02/04/2017-) - continue nystatin for thrush - wound care of the coccyx and upper back Problems: Consultation Date/Type/Reason Admit Date/Time Dec 02, 2016 at 21:01 Type of Consultation: id Referring Provider: VIET PARKER MD Exam/Review of Systems Vital Signs Vitals Vital Signs Date Time Temp Pulse Resp B/P Pulse Ox O2 Delivery O2 Flow Rate FiO2 02/10/17 17:24 64 16 100 35 02/10/17 15:41 99.4 115/54 02/08/17 08:30 Bag Valve Mask 02/07/17 18:08 5.0 Intake and Output 02/09/17 02/09/17 02/10/17 15:00 23:00 07:00 Intake Total 250 ml 950 ml 910 ml Output Total 2000 ml 400 ml 500 ml Balance -1750 ml 550 ml 410 ml Results Result Diagram: 02/10/17 0640 02/10/17 0640 Results 24 hrs Laboratory Tests Test 02/10/17 00:52 02/10/17 05:41 02/10/17 06:40 02/10/17 12:54 Bedside Glucose 199 178 201 White Blood Count 8.8 Red Blood Count 2.84 L Hemoglobin 8.0 L Hematocrit 25.4 L Mean Corpuscular Volume 89.4 Mean Corpuscular Hemoglobin 28.2 L Mean Corpuscular Hemoglobin Concent 31.5 L Red Cell Distribution Width 14.5 Platelet Count 252 Mean Platelet Volume 9.9 Neutrophils % 76.0 Lymphocytes % 11.5 L Monocytes % 7.3 Eosinophils % 0.7 Basophils % 0.2 Nucleated Red Blood Cells % 0.0 Neutrophils # 6.6 Lymphocytes # 1.0 Monocytes # 0.6 Eosinophils # 0.1 Basophils # 0.0 Nucleated Red Blood Cells # 0.0 Sodium Level 139 Potassium Level 3.9 Chloride Level 98 Carbon Dioxide Level 33 H Anion Gap 12 Blood Urea Nitrogen 44 #H Creatinine 1.29 H Glucose Level 188 Calcium Level 8.2 L Test 02/10/17 17:49 Bedside Glucose 214 Medications Medications Current Medications Ondansetron HCl (Zofran Inj) 4 mg Q6H PRN IV NAUSEA AND/OR VOMITING Last administered on 12/13/16 01:13; Admin Dose 4 MG; Start 12/02/16 at 22:30 Miscellaneous Information 1 ea NOTE XX ; Start 12/02/16 at 23:00 Glucose (Glutose) 15 gm Q15M PRN PO DECREASED GLUCOSE; Start 12/02/16 at 23:00 Glucose (Glutose) 22.5 gm Q15M PRN PO DECREASED GLUCOSE; Start 12/02/16 at 23: 00 Dextrose (D50w Syringe) 25 ml Q15M PRN IV DECREASED GLUCOSE Last administered on 01/26/17 05:21; Admin Dose 25 ML; Start 12/02/16 at 23:00 Dextrose (D50w Syringe) 50 ml Q15M PRN IV DECREASED GLUCOSE Last administered on 01/23/17 04:58; Admin Dose 50 ML; Start 12/02/16 at 23:00 Glucagon (Glucagen) 1 mg Q15M PRN IM DECREASED GLUCOSE; Start 12/02/16 at 23:00 Glucose (Glutose) 15 gm Q15M PRN BUCCAL DECREASED GLUCOSE; Start 12/02/16 at 23 :00 Acetaminophen (Tylenol Supp) 650 mg Q6H PRN [place] ELEVATED TEMPERATURE Last administered on 01/13/17 20:32; Admin Dose 650 MG; Start 12/09/16 at 17:00 Hydralazine HCl (Apresoline) 10 mg Q6H PRN IV SBP>150mm hg Last administered on 12/19/16 08:50; Admin Dose 10 MG; Start 12/11/16 at 10:30 Morphine Sulfate (morphine) 2 mg Q2H PRN IV PAIN LEVEL 4-7; Start 12/13/16 at 10 :00 Collagenase (Santyl) 1 applic DAILY TOP Last administered on 02/10/17 09:00; Admin Dose 1 APPLIC; Start 01/04/17 at 09:00 Metoprolol Tartrate (Lopressor) 5 mg Q4 PRN IV FOR H.R>110; Start 01/12/17 at 17:30 Acetaminophen (Tylenol Liquid) 650 mg Q6H PRN NGT PAIN AND OR ELEVATED TEMP Last administered on 02/03/17 17:37; Admin Dose 650 MG; Start 01/13/17 at 23:30 Acetaminophen/ Hydrocodone Bitart ([place] (5/325)) 1 tab Q6H PRN NGT PAIN LEVEL 4-7; Start 01/13/17 at 23:30 Levetiracetam (Keppra Liquid) 1,000 mg DAILY NGT Last administered on 09:56; Admin Dose 1,000 MG; Start 01/14/17 at 09:00 Meclizine HCl (Antivert) 25 mg TID PRN NGT dizziness; Start 01/13/17 at 20:00 Zolpidem Tartrate (Ambien) 5 mg HS PRN NGT INSOMNIA; Start 01/13/17 at 20:00 Docusate Sodium (Colace Liquid Cup) 100 mg BID NGT Last administered on 09:56; Admin Dose 100 MG; Start 01/13/17 at 21:00 Metoprolol Tartrate (Lopressor) 12.5 mg BID NGT Last administered on 02/08/17 08:12; Admin Dose 12.5 MG; Start 01/24/17 at 21:00 Nystatin 5 ml 5 ml Q6 PO Last administered on 02/10/17 17:52; Admin Dose 5 ML ; Start 01/31/17 at 12:00 Cefepime HCl (Maxipime 1gm/50 ml (Pmx)) 50 ml @ 100 mls/hr DAILY IVPB Last administered on 02/10/17 09:55; Admin Dose 100 MLS/HR; Start 02/02/17 at 11:00 Insulin Glargine (Lantus) 40 unit DAILY@20 SC Last administered on 02/09/17 21 :25; Admin Dose 40 UNIT; Start 02/04/17 at 20:00 Tobramycin TOBRAMYCIN PER PHARMACY NOTE XX ; Start 02/04/17 at 20:30 Caspofungin/ Sodium Chloride (Cancidas/NS) 250 ml @ 250 mls/hr Q24H IVPB Last administered on 02/09/17 21:28; Admin Dose 250 MLS/HR; Start 02/05/17 at 22:00 Lansoprazole (Prevacid) 30 mg DAILY@06 GTB Last administered on 02/10/17 05:43 ; Admin Dose 30 MG; Start 02/09/17 at 06:00 Insulin Aspart (Novolog Insulin Pen) NOVOLOG *MODERATE* ALGORI... Q6 SC Last administered on 02/10/17 17:54; Admin Dose 4 UNIT; Start 02/09/17 at 18:00 Amiodarone HCl (Cordarone) 200 mg Q12 NGT ; Start 02/10/17 at 21:00 NIKHIL RAM MD Feb 10, 2017 18:54
[2017-02-10] MEDS: CASPOFUNGIN 50 MG in SOD CHLORIDE 0.9% 250 ML IVPB SCH (20:45)
[2017-02-10] MEDS: INSULIN GLARGINE [LANtus] 3 ML PEN SC SCH (20:48)
--- NOTE | 2017-02-10 22:20 | CONS ---
Date/Time of Note Date/Time of Note DATE: 02/10/17 TIME: 22:19 Assessment/Plan Assessment/Plan Additional Assessment/Plan -S/p cardiopulmonary arrest on 12/09/2016 and on 01/08/2017 - 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 Blood cultures from HD catheter on 12/13/2016 are negative to date. 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 MRI on 12/06/2016 and bone scan on showed early OM of the distal phalanx of the left great toe and left fourth proximal phalanx. superficial swab grew inna only - s/p right pleural effusion s/p thoracentesis with .9L removed on 12/16/2016 - severe , EF 40-45% per TTE 12/17/16 - DM - Hgb A1c 8.7% - HTN associated with DM Tracheostomy site bleeding Plan: HD ordered for tomorrow s/p Tracheostomy, on ventilator pt will need HD palcement at a unit where they can do a HD for pt with tracheostomy and PEG tube placemen t- heel caser has been instructed to set up [facility] pt has severe , very labile BP sometimes with HD will continue to follow up for HD need Consultation Date/Type/Reason Admit Date/Time Dec 02, 2016 at 21:01 Initial Consult Date Type of Consultation: NEPHROLOGY Referring Provider: VIET PARKER MD 24 HR Interval Summary Free Text/Dictation remained stable, Plan for HD tomorrow Exam/Review of Systems Vital Signs Vitals Vital Signs Date Time Temp Pulse Resp B/P Pulse Ox O2 Delivery O2 Flow Rate FiO2 02/10/17 20:24 73 02/10/17 19:58 98.8 16 131/60 98 02/10/17 17:24 35 02/08/17 08:30 Bag Valve Mask 02/07/17 18:08 5.0 Intake and Output 02/09/17 02/09/17 02/10/17 15:00 23:00 07:00 Intake Total 250 ml 950 ml 910 ml Output Total 2000 ml 400 ml 500 ml Balance -1750 ml 550 ml 410 ml Results Result Diagram: 02/10/17 0640 02/10/17 0640 Results 24 hrs Laboratory Tests Test 02/10/17 00:52 02/10/17 05:41 02/10/17 06:40 02/10/17 12:54 Bedside Glucose 199 178 201 White Blood Count 8.8 Red Blood Count 2.84 L Hemoglobin 8.0 L Hematocrit 25.4 L Mean Corpuscular Volume 89.4 Mean Corpuscular Hemoglobin 28.2 L Mean Corpuscular Hemoglobin Concent 31.5 L Red Cell Distribution Width 14.5 Platelet Count 252 Mean Platelet Volume 9.9 Neutrophils % 76.0 Lymphocytes % 11.5 L Monocytes % 7.3 Eosinophils % 0.7 Basophils % 0.2 Nucleated Red Blood Cells % 0.0 Neutrophils # 6.6 Lymphocytes # 1.0 Monocytes # 0.6 Eosinophils # 0.1 Basophils # 0.0 Nucleated Red Blood Cells # 0.0 Sodium Level 139 Potassium Level 3.9 Chloride Level 98 Carbon Dioxide Level 33 H Anion Gap 12 Blood Urea Nitrogen 44 #H Creatinine 1.29 H Glucose Level 188 Calcium Level 8.2 L Test 02/10/17 17:49 Bedside Glucose 214 Medications Medications Current Medications Ondansetron HCl (Zofran Inj) 4 mg Q6H PRN IV NAUSEA AND/OR VOMITING Last administered on 12/13/16 01:13; Admin Dose 4 MG; Start 12/02/16 at 22:30 Miscellaneous Information 1 ea NOTE XX ; Start 12/02/16 at 23:00 Glucose (Glutose) 15 gm Q15M PRN PO DECREASED GLUCOSE; Start 12/02/16 at 23:00 Glucose (Glutose) 22.5 gm Q15M PRN PO DECREASED GLUCOSE; Start 12/02/16 at 23: 00 Dextrose (D50w Syringe) 25 ml Q15M PRN IV DECREASED GLUCOSE Last administered on 01/26/17 05:21; Admin Dose 25 ML; Start 12/02/16 at 23:00 Dextrose (D50w Syringe) 50 ml Q15M PRN IV DECREASED GLUCOSE Last administered on 01/23/17 04:58; Admin Dose 50 ML; Start 12/02/16 at 23:00 Glucagon (Glucagen) 1 mg Q15M PRN IM DECREASED GLUCOSE; Start 12/02/16 at 23:00 Glucose (Glutose) 15 gm Q15M PRN BUCCAL DECREASED GLUCOSE; Start 12/02/16 at 23 :00 Acetaminophen (Tylenol Supp) 650 mg Q6H PRN [place] ELEVATED TEMPERATURE Last administered on 01/13/17 20:32; Admin Dose 650 MG; Start 12/09/16 at 17:00 Hydralazine HCl (Apresoline) 10 mg Q6H PRN IV SBP>150mm hg Last administered on 12/19/16 08:50; Admin Dose 10 MG; Start 12/11/16 at 10:30 Morphine Sulfate (morphine) 2 mg Q2H PRN IV PAIN LEVEL 4-7; Start 12/13/16 at 10 :00 Collagenase (Santyl) 1 applic DAILY TOP Last administered on 02/10/17 09:00; Admin Dose 1 APPLIC; Start 01/04/17 at 09:00 Metoprolol Tartrate (Lopressor) 5 mg Q4 PRN IV FOR H.R>110; Start 01/12/17 at 17:30 Acetaminophen (Tylenol Liquid) 650 mg Q6H PRN NGT PAIN AND OR ELEVATED TEMP Last administered on 02/03/17 17:37; Admin Dose 650 MG; Start 01/13/17 at 23:30 Acetaminophen/ Hydrocodone Bitart ([place] (5/325)) 1 tab Q6H PRN NGT PAIN LEVEL 4-7; Start 01/13/17 at 23:30 Levetiracetam (Keppra Liquid) 1,000 mg DAILY NGT Last administered on 09:56; Admin Dose 1,000 MG; Start 01/14/17 at 09:00 Meclizine HCl (Antivert) 25 mg TID PRN NGT dizziness; Start 01/13/17 at 20:00 Zolpidem Tartrate (Ambien) 5 mg HS PRN NGT INSOMNIA; Start 01/13/17 at 20:00 Docusate Sodium (Colace Liquid Cup) 100 mg BID NGT Last administered on 20:44; Admin Dose 100 MG; Start 01/13/17 at 21:00 Metoprolol Tartrate (Lopressor) 12.5 mg BID NGT Last administered on 02/10/17 20:44; Admin Dose 12.5 MG; Start 01/24/17 at 21:00 Nystatin 5 ml 5 ml Q6 PO Last administered on 02/10/17 17:52; Admin Dose 5 ML ; Start 01/31/17 at 12:00 Cefepime HCl (Maxipime 1gm/50 ml (Pmx)) 50 ml @ 100 mls/hr DAILY IVPB Last administered on 02/10/17 09:55; Admin Dose 100 MLS/HR; Start 02/02/17 at 11:00 Insulin Glargine (Lantus) 40 unit DAILY@20 SC Last administered on 02/10/17 20 :48; Admin Dose 40 UNIT; Start 02/04/17 at 20:00 Tobramycin TOBRAMYCIN PER PHARMACY NOTE XX ; Start 02/04/17 at 20:30 Caspofungin/ Sodium Chloride (Cancidas/NS) 250 ml @ 250 mls/hr Q24H IVPB Last administered on 02/10/17 20:45; Admin Dose 250 MLS/HR; Start 02/05/17 at 22:00 Lansoprazole (Prevacid) 30 mg DAILY@06 GTB Last administered on 02/10/17 05:43 ; Admin Dose 30 MG; Start 02/09/17 at 06:00 Insulin Aspart (Novolog Insulin Pen) NOVOLOG *MODERATE* ALGORI... Q6 SC Last administered on 02/10/17 17:54; Admin Dose 4 UNIT; Start 02/09/17 at 18:00 Amiodarone HCl (Cordarone) 200 mg Q12 NGT Last administered on 02/10/17 20:45 ; Admin Dose 200 MG; Start 02/10/17 at 21:00 TASHIA MCGARRY MD Feb 10, 2017 22:20
--- NOTE | 2017-02-10 22:52 | PN ---
Date/Time of Note Date/Time of Note DATE: 02/10/17 TIME: 22:52 Assessment/Plan Lines/Catheters IV Catheter Type (from [facility]): Saline Lock Molina in Place (from [facility]): No Exam/Review of Systems Vital Signs Vitals Vital Signs Date Time Temp Pulse Resp B/P Pulse Ox O2 Delivery O2 Flow Rate FiO2 02/10/17 20:24 73 02/10/17 19:58 98.8 16 131/60 98 02/10/17 17:24 35 02/08/17 08:30 Bag Valve Mask 02/07/17 18:08 5.0 Intake and Output 02/09/17 02/09/17 02/10/17 15:00 23:00 07:00 Intake Total 250 ml 950 ml 910 ml Output Total 2000 ml 400 ml 500 ml Balance -1750 ml 550 ml 410 ml Results Result Diagram: 02/10/17 0640 02/10/17 0640 YEIMI LIZARRAGA DPM Feb 10, 2017 22:52
[2017-02-11] VITALS (32 sets, daily range): BP systolic 85–138; BP diastolic 50–76; PULSE 66–82; RESP 14–19
[2017-02-11] MEDS: ALBUTEROL 18 GM INHALER INH SCH ×4 (01:07→19:19)
[2017-02-11] MEDS: NYSTATIN SUSP 5 ML CUP PO SCH ×3 (05:33→17:58)
[2017-02-11] MEDS: LANSOPRAZOLE 30 MG CAP GTB SCH (05:33)
[2017-02-11] MEDS: INSULIN ASPART [NOVOLOG] 3 ML PEN SC SCH ×3 (05:34→18:15)
[2017-02-11 06:24] LABS: BASOPHILS % 0.2 % (0.0-2.0); EOSINOPHILS # 0.1 10^3/ul (0.0-0.5); EOSINOPHILS % 0.4 % (0.0-7.0); HEMATOCRIT 27.4 % (42.0-52.0); HEMOGLOBIN 8.5 g/dl (14.0-18.0); LYMPHOCYTES % 8.7 % (15.0-51.0); MEAN CORPUSCULAR HEMOGLOBIN 28.1 pg (29.0-33.0); MEAN CORPUSCULAR VOLUME 90.7 fl (82.0-101.0); MONOCYTE # 0.9 10^3/ul (0.3-0.9); NEUTROPHILS % 79.9 % (39.0-77.0); PLATELET COUNT 279 10^3/UL (140-415); RED BLOOD COUNT 3.02 10^6/ul (4.70-6.10); RED CELL DISTRIBUTION WIDTH 14.6 % (11.5-14.5); WHITE BLOOD COUNT 11.3 10^3/ul (4.8-10.8)
[2017-02-11 06:46] LABS: CALCIUM 8.4 mg/dl (8.4-10.2); CREATININE 1.25 mg/dl (0.61-1.24); POTASSIUM 3.8 mmol/L (3.5-5.1)
[2017-02-11 07:26] LABS: ADD SCAN DIFF NO
[2017-02-11] MEDS: COLLAGENASE 30 GM TUBE TOP SCH (09:00)
[2017-02-11] MEDS: DOCUSATE SODIUM 10 MG/ML (10ML CUP) NGT SCH ×2 (09:34→21:00)
[2017-02-11] MEDS: CEFEPIME 1GM/50 ML (PMX) 50 ML IVPB SCH (09:35)
[2017-02-11] MEDS: LEVETIRACETAM (100 MG/ML) 5ML CUP NGT SCH (09:35)
[2017-02-11] MEDS: AMIODARONE 200 MG TAB NGT SCH ×2 (09:44→21:00)
[2017-02-11] MEDS: METOPROLOL 25 MG TAB NGT SCH ×2 (09:46→21:00)
--- NOTE | 2017-02-11 10:26 | CONS ---
Date/Time of Note Date/Time of Note DATE: 02/11/17 TIME: 10:23 Assessment/Plan Assessment/Plan Additional Assessment/Plan Ventilator setting; AC of 16, tidal volume 500, PEEP of 5, 35% FiO2. Assessment recommendations; 1. Patient admitted for cellulitis then developed renal failure requiring intubation. Patient was transferred to medical floor where he had cardiac arrest event likely from flash pulmonary edema causing anoxic brain injury due to along CPR. Status post tracheostomy and G-tube placement. 2. Renal failure, on hemodialysis. 3. Recent ostial myelitis, off antibiotics now. 4. Peripheral vascular disease. Continue current supportive care. Prognosis is poor. [facility] Consultation Date/Type/Reason Admit Date/Time Dec 02, 2016 at 21:01 Initial Consult Date 12/03/16 Type of Consultation: Pulmonary Referring Provider: VIET PARKER MD 24 HR Interval Summary Free Text/Dictation Patient condition remains stable. Has remained hemodynamically stable. Remains unresponsive. General exam; elderly male, on ventilator via tracheostomy unresponsive, currently in no distress. Exam/Review of Systems Vital Signs Vitals Vital Signs Date Time Temp Pulse Resp B/P Pulse Ox O2 Delivery O2 Flow Rate FiO2 02/11/17 09:58 78 16 99 35 02/11/17 06:52 98.5 118/58 02/08/17 08:30 Bag Valve Mask 02/07/17 18:08 5.0 Intake and Output 02/10/17 02/10/17 02/11/17 15:00 23:00 07:00 Intake Total 855 ml Output Total 463 ml Balance 392 ml Exam HEENT exam; supple neck, no JVD. No lymphadenopathy. Midline trachea. No thyromegaly. Patient is edentulous. Tracheostomy placed with clean insertion site. Chest exam; diminished but clear breath sounds. S1-S2 audible, no murmurs. Regular rhythm. Abdomen exam; soft, G-tube in place. Bowel sounds audible. No organomegaly. Extremity exam; no peripheral edema. QUILTER FIXER exam; patient remains unresponsive Results Result Diagram: 02/11/17 0524 02/11/17 0520 Results 24 hrs Laboratory Tests Test 02/10/17 12:54 02/10/17 17:49 02/10/17 23:20 02/11/17 05:20 Bedside Glucose 201 214 222 H Sodium Level 141 Potassium Level 3.8 Chloride Level 98 Carbon Dioxide Level 35 H Anion Gap 12 Blood Urea Nitrogen 53 H Creatinine 1.25 H Glucose Level 212 Calcium Level 8.4 Test 02/11/17 05:24 02/11/17 05:31 White Blood Count 11.3 #H Red Blood Count 3.02 L Hemoglobin 8.5 L Hematocrit 27.4 L Mean Corpuscular Volume 90.7 Mean Corpuscular Hemoglobin 28.1 L Mean Corpuscular Hemoglobin Concent 31.0 L Red Cell Distribution Width 14.6 H Platelet Count 279 Mean Platelet Volume 10.0 Neutrophils % 79.9 H Lymphocytes % 8.7 L Monocytes % 8.0 Eosinophils % 0.4 Basophils % 0.2 Nucleated Red Blood Cells % 0.0 Neutrophils # 9.0 H Lymphocytes # 1.0 Monocytes # 0.9 Eosinophils # 0.1 Basophils # 0.0 Nucleated Red Blood Cells # 0.0 Bedside Glucose 196 Medications Medications Current Medications Ondansetron HCl (Zofran Inj) 4 mg Q6H PRN IV NAUSEA AND/OR VOMITING Last administered on 12/13/16 01:13; Admin Dose 4 MG; Start 12/02/16 at 22:30 Miscellaneous Information 1 ea NOTE XX ; Start 12/02/16 at 23:00 Glucose (Glutose) 15 gm Q15M PRN PO DECREASED GLUCOSE; Start 12/02/16 at 23:00 Glucose (Glutose) 22.5 gm Q15M PRN PO DECREASED GLUCOSE; Start 12/02/16 at 23: 00 Dextrose (D50w Syringe) 25 ml Q15M PRN IV DECREASED GLUCOSE Last administered on 01/26/17 05:21; Admin Dose 25 ML; Start 12/02/16 at 23:00 Dextrose (D50w Syringe) 50 ml Q15M PRN IV DECREASED GLUCOSE Last administered on 01/23/17 04:58; Admin Dose 50 ML; Start 12/02/16 at 23:00 Glucagon (Glucagen) 1 mg Q15M PRN IM DECREASED GLUCOSE; Start 12/02/16 at 23:00 Glucose (Glutose) 15 gm Q15M PRN BUCCAL DECREASED GLUCOSE; Start 12/02/16 at 23 :00 Acetaminophen (Tylenol Supp) 650 mg Q6H PRN IN ELEVATED TEMPERATURE Last administered on 01/13/17 20:32; Admin Dose 650 MG; Start 12/09/16 at 17:00 Hydralazine HCl (Apresoline) 10 mg Q6H PRN IV SBP>150mm hg Last administered on 12/19/16 08:50; Admin Dose 10 MG; Start 12/11/16 at 10:30 Morphine Sulfate (morphine) 2 mg Q2H PRN IV PAIN LEVEL 4-7; Start 12/13/16 at 10 :00 Collagenase (Santyl) 1 applic DAILY TOP Last administered on 02/11/17 09:00; Admin Dose 1 APPLIC; Start 01/04/17 at 09:00 Metoprolol Tartrate (Lopressor) 5 mg Q4 PRN IV FOR H.R>110; Start 01/12/17 at 17:30 Acetaminophen (Tylenol Liquid) 650 mg Q6H PRN NGT PAIN AND OR ELEVATED TEMP Last administered on 02/03/17 17:37; Admin Dose 650 MG; Start 01/13/17 at 23:30 Acetaminophen/ Hydrocodone Bitart ([place] (5/325)) 1 tab Q6H PRN NGT PAIN LEVEL 4-7; Start 01/13/17 at 23:30 Levetiracetam (Keppra Liquid) 1,000 mg DAILY NGT Last administered on 09:35; Admin Dose 1,000 MG; Start 01/14/17 at 09:00 Meclizine HCl (Antivert) 25 mg TID PRN NGT dizziness; Start 01/13/17 at 20:00 Zolpidem Tartrate (Ambien) 5 mg HS PRN NGT INSOMNIA; Start 01/13/17 at 20:00 Docusate Sodium (Colace Liquid Cup) 100 mg BID NGT Last administered on 09:34; Admin Dose 100 MG; Start 01/13/17 at 21:00 Metoprolol Tartrate (Lopressor) 12.5 mg BID NGT Last administered on 02/11/17 09:46; Admin Dose 12.5 MG; Start 01/24/17 at 21:00 Nystatin 5 ml 5 ml Q6 PO Last administered on 02/11/17 05:33; Admin Dose 5 ML ; Start 01/31/17 at 12:00 Cefepime HCl (Maxipime 1gm/50 ml (Pmx)) 50 ml @ 100 mls/hr DAILY IVPB Last administered on 02/11/17 09:35; Admin Dose 100 MLS/HR; Start 02/02/17 at 11:00 Insulin Glargine (Lantus) 40 unit DAILY@20 SC Last administered on 02/10/17 20 :48; Admin Dose 40 UNIT; Start 02/04/17 at 20:00 Tobramycin TOBRAMYCIN PER PHARMACY NOTE XX ; Start 02/04/17 at 20:30 Caspofungin/ Sodium Chloride (Cancidas/NS) 250 ml @ 250 mls/hr Q24H IVPB Last administered on 02/10/17 20:45; Admin Dose 250 MLS/HR; Start 02/05/17 at 22:00 Lansoprazole (Prevacid) 30 mg DAILY@06 GTB Last administered on 02/11/17 05:33 ; Admin Dose 30 MG; Start 02/09/17 at 06:00 Insulin Aspart (Novolog Insulin Pen) NOVOLOG *MODERATE* ALGORI... Q6 SC Last administered on 02/11/17 05:34; Admin Dose 4 UNIT; Start 02/09/17 at 18:00 Amiodarone HCl (Cordarone) 200 mg Q12 NGT Last administered on 02/11/17 09:44 ; Admin Dose 200 MG; Start 02/10/17 at 21:00 IKE MULLER Feb 11, 2017 10:26
[2017-02-11] MEDS: ALBUMIN HUMAN 25% 100 ML IV PRN (11:46)
--- NOTE | 2017-02-11 12:35 | PN ---
Date/Time of Note Date/Time of Note DATE: 02/11/17 TIME: 12:31 Assessment/Plan VTE Prophylaxis VTE Prophylaxis Intervention: SCD's Lines/Catheters IV [facility]ter [facility]from [facility]): perm a cath Urinary Cath still in place: No Assessment/Plan Chief Complaint/Hosp Course Patient is currently undergoing hemodialysis, borderline blood pressure. Patient tolerated G-tube feeding well according to RN. ASSESSMENT AND PLAN: - Dysphagia. S/p G-tube by Dr. Smith. Continue G-tube feeding monitor residual. - Possible recurrent sepsis, resolving. continue antibiotics per ID. Dr Dallas group is following infection disease consultation. - Anemia of blood loss. Continue to monitor H&H, transfuse as needed. - Status post cardiopulmonary arrest on 12/09/2016 and 01/08/2017. Continue ventilatory support. - Anoxic encephalopathy. Continue Keppra. - Status post tracheostomy on 01/23/2017. - End-stage renal disease. Continue hemodialysis per nephrology. - Paroxysmal atrial fibrillation. Eliquis is currently held due to bleeding. - Diabetes mellitus type 2. Continue Lantus and NovoLog with sliding scale coverage with Accu-Cheks q. 4 hours. - Diabetic foot ulcer. Continue current wound care. - Osteomyelitis of the distal phalanx of the great left toe. Completed treatment for antibiotics. Continue sequential compression device for deep venous thrombosis prophylaxis and Protonix for peptic ulcer disease prophylaxis. Case management for detention facility placement and arrangement for hemodialysis. Further recommendations based on clinical course. Plan of care discussed with Dr. Heredia. Problems: Exam/Review of Systems Vital Signs Vitals Vital Signs Date Time Temp Pulse Resp B/P Pulse Ox O2 Delivery O2 Flow Rate FiO2 02/11/17 12:07 98.0 70 18 99/54 96 02/11/17 11:41 35 02/08/17 08:30 Bag Valve Mask 02/07/17 18:08 5.0 Intake and Output 02/10/17 02/10/17 02/11/17 15:00 23:00 07:00 Intake Total 855 ml Output Total 463 ml Balance 392 ml Exam Constitutional: non-verbal Head: atraumatic, normocephalic ENMT: other (Nasogastric tube) Neck: other (Tracheostomy), supple Respiratory: diminished breath sounds Cardiovascular: nl pulses Gastrointestinal: non-tender, soft, GT Neurological: unresponsive Results Result Diagram: 02/11/17 0524 02/11/17 0520 Results 24 hrs Laboratory Tests Test 02/10/17 12:54 02/10/17 17:49 02/10/17 23:20 02/11/17 05:20 Bedside Glucose 201 214 222 H Sodium Level 141 Potassium Level 3.8 Chloride Level 98 Carbon Dioxide Level 35 H Anion Gap 12 Blood Urea Nitrogen 53 H Creatinine 1.25 H Glucose Level 212 Calcium Level 8.4 Test 02/11/17 05:24 02/11/17 05:31 White Blood Count 11.3 #H Red Blood Count 3.02 L Hemoglobin 8.5 L Hematocrit 27.4 L Mean Corpuscular Volume 90.7 Mean Corpuscular Hemoglobin 28.1 L Mean Corpuscular Hemoglobin Concent 31.0 L Red Cell Distribution Width 14.6 H Platelet Count 279 Mean Platelet Volume 10.0 Neutrophils % 79.9 H Lymphocytes % 8.7 L Monocytes % 8.0 Eosinophils % 0.4 Basophils % 0.2 Nucleated Red Blood Cells % 0.0 Neutrophils # 9.0 H Lymphocytes # 1.0 Monocytes # 0.9 Eosinophils # 0.1 Basophils # 0.0 Nucleated Red Blood Cells # 0.0 Bedside Glucose 196 Medications Medications Current Medications Ondansetron HCl (Zofran Inj) 4 mg Q6H PRN IV NAUSEA AND/OR VOMITING Last administered on 12/13/16 01:13; Admin Dose 4 MG; Start 12/02/16 at 22:30 Miscellaneous Information 1 ea NOTE XX ; Start 12/02/16 at 23:00 Glucose (Glutose) 15 gm Q15M PRN PO DECREASED GLUCOSE; Start 12/02/16 at 23:00 Glucose (Glutose) 22.5 gm Q15M PRN PO DECREASED GLUCOSE; Start 12/02/16 at 23: 00 Dextrose (D50w Syringe) 25 ml Q15M PRN IV DECREASED GLUCOSE Last administered on 01/26/17 05:21; Admin Dose 25 ML; Start 12/02/16 at 23:00 Dextrose (D50w Syringe) 50 ml Q15M PRN IV DECREASED GLUCOSE Last administered on 01/23/17 04:58; Admin Dose 50 ML; Start 12/02/16 at 23:00 Glucagon (Glucagen) 1 mg Q15M PRN IM DECREASED GLUCOSE; Start 12/02/16 at 23:00 Glucose (Glutose) 15 gm Q15M PRN BUCCAL DECREASED GLUCOSE; Start 12/02/16 at 23 :00 Acetaminophen (Tylenol Supp) 650 mg Q6H PRN [place] ELEVATED TEMPERATURE Last administered on 01/13/17 20:32; Admin Dose 650 MG; Start 12/09/16 at 17:00 Hydralazine HCl (Apresoline) 10 mg Q6H PRN IV SBP>150mm hg Last administered on 12/19/16 08:50; Admin Dose 10 MG; Start 12/11/16 at 10:30 Morphine Sulfate (morphine) 2 mg Q2H PRN IV PAIN LEVEL 4-7; Start 12/13/16 at 10 :00 Collagenase (Santyl) 1 applic DAILY TOP Last administered on 02/11/17 09:00; Admin Dose 1 APPLIC; Start 01/04/17 at 09:00 Metoprolol Tartrate (Lopressor) 5 mg Q4 PRN IV FOR H.R>110; Start 01/12/17 at 17:30 Acetaminophen (Tylenol Liquid) 650 mg Q6H PRN NGT PAIN AND OR ELEVATED TEMP Last administered on 02/03/17 17:37; Admin Dose 650 MG; Start 01/13/17 at 23:30 Acetaminophen/ Hydrocodone Bitart ([place] (5/325)) 1 tab Q6H PRN NGT PAIN LEVEL 4-7; Start 01/13/17 at 23:30 Levetiracetam (Keppra Liquid) 1,000 mg DAILY NGT Last administered on 09:35; Admin Dose 1,000 MG; Start 01/14/17 at 09:00 Meclizine HCl (Antivert) 25 mg TID PRN NGT dizziness; Start 01/13/17 at 20:00 Zolpidem Tartrate (Ambien) 5 mg HS PRN NGT INSOMNIA; Start 01/13/17 at 20:00 Docusate Sodium (Colace Liquid Cup) 100 mg BID NGT Last administered on 09:34; Admin Dose 100 MG; Start 01/13/17 at 21:00 Metoprolol Tartrate (Lopressor) 12.5 mg BID NGT Last administered on 02/11/17 09:46; Admin Dose 12.5 MG; Start 01/24/17 at 21:00 Nystatin 5 ml 5 ml Q6 PO Last administered on 02/11/17 05:33; Admin Dose 5 ML ; Start 01/31/17 at 12:00 Cefepime HCl (Maxipime 1gm/50 ml (Pmx)) 50 ml @ 100 mls/hr DAILY IVPB Last administered on 02/11/17 09:35; Admin Dose 100 MLS/HR; Start 02/02/17 at 11:00 Insulin Glargine (Lantus) 40 unit DAILY@20 SC Last administered on 02/10/17 20 :48; Admin Dose 40 UNIT; Start 02/04/17 at 20:00 Tobramycin TOBRAMYCIN PER PHARMACY NOTE XX ; Start 02/04/17 at 20:30 Caspofungin/ Sodium Chloride (Cancidas/NS) 250 ml @ 250 mls/hr Q24H IVPB Last administered on 02/10/17 20:45; Admin Dose 250 MLS/HR; Start 02/05/17 at 22:00 Lansoprazole (Prevacid) 30 mg DAILY@06 GTB Last administered on 02/11/17 05:33 ; Admin Dose 30 MG; Start 02/09/17 at 06:00 Insulin Aspart (Novolog Insulin Pen) NOVOLOG *MODERATE* ALGORI... Q6 SC Last administered on 02/11/17 05:34; Admin Dose 4 UNIT; Start 02/09/17 at 18:00 Amiodarone HCl (Cordarone) 200 mg Q12 NGT Last administered on 02/11/17 09:44 ; Admin Dose 200 MG; Start 02/10/17 at 21:00 KIMBERLY NOYOLA Feb 11, 2017 12:35
[2017-02-11] MEDS: TOBRAMYCIN 100 MG in SOD CHLORIDE 0.9% 50 ML IVPB SCH (14:08)
--- NOTE | 2017-02-11 14:25 | CONS ---
Date/Time of Note Date/Time of Note DATE: 02/11/17 TIME: 14:19 Assessment/Plan Assessment/Plan Chief Complaint/Hosp Course IMPRESSION: 1. Atrial fibrillation-Having episodes of PAF with reasonable rate control. Currently in SR 2. Hypotension-borderline and labile 3. Abnormal electrocardiogram with inferolateral T-wave inversions. 4. Respiratory failure-s/p trach placement 5. Nonhealing toe ulceration-vascular following 6. Peripheral arterial disease by arterial ultrasound of the lower extremities this admission. 7. Diabetes mellitus. 8. Fevers. 9. Positive troponin-downtrended 10.Bradycardia-improved/stable 11.-severe by echo 12.Cardiomyopathy-EF 40-45% by echo/36% by stress with no ischemia but positive scar. EF <30% by echo post arrest 14.Encephalopathy-anoxic 15. s/p cardiopulmonary arrest 01/08 Recc: -Tele -serial ecg -HD for volume removal as tolerated -Will resume eliquis at this time and follow fro recurrent bleeding -Continue PO amio in attempt to maintain SR but will decrase dose -Continue BB as tolerated only following HR/BP closely -Will hold on afterload reduction given severe and thus fixed afterload at valve orifice Problems: Consultation Date/Type/Reason Admit Date/Time Dec 02, 2016 at 21:01 Initial Consult Date 12/03/16 Type of Consultation: cardiology Reason for Consultation /cardiomyopathy/CHF Referring Provider: VIET PARKER MD Exam/Review of Systems Vital Signs Vitals Vital Signs Date Time Temp Pulse Resp B/P Pulse Ox O2 Delivery O2 Flow Rate FiO2 02/11/17 13:53 78 16 99 35 02/11/17 12:07 98.0 99/54 02/08/17 08:30 Bag Valve Mask 02/07/17 18:08 5.0 Intake and Output 02/10/17 02/10/17 02/11/17 15:00 23:00 07:00 Intake Total 855 ml Output Total 463 ml Balance 392 ml Exam Review of Systems: CONSTITUTIONAL: No fevers, chills. PULMONARY: trached CARDIOVASCULAR: No obvious chest pain/palpitations GASTROINTESTINAL: No nausea/vomiting. GENITOURINARY: No hematuria/dysuria. MUSCULOSKELETAL: No obvious myagias/arthalgias. PSYCHIATRIC: no documented depression. NEUROLOGIC: encephalopathic Constitutional: other (encephalopathic) Psych: no complaints Head: normocephalic ENMT: mucosa pink and moist Neck: jvd, other (trached), supple Respiratory: diminished breath sounds Cardiovascular: regular rate and rhythm Gastrointestinal: non-tender, soft Musculoskeletal: muscle tone (normal) Extremities: edema (none) Neurological: confused, lethargic Results Result Diagram: 02/11/17 0524 02/11/17 0520 Results 24 hrs Laboratory Tests Test 02/10/17 17:49 02/10/17 23:20 02/11/17 05:20 02/11/17 05:24 Bedside Glucose 214 222 H Sodium Level 141 Potassium Level 3.8 Chloride Level 98 Carbon Dioxide Level 35 H Anion Gap 12 Blood Urea Nitrogen 53 H Creatinine 1.25 H Glucose Level 212 Calcium Level 8.4 White Blood Count 11.3 #H Red Blood Count 3.02 L Hemoglobin 8.5 L Hematocrit 27.4 L Mean Corpuscular Volume 90.7 Mean Corpuscular Hemoglobin 28.1 L Mean Corpuscular Hemoglobin Concent 31.0 L Red Cell Distribution Width 14.6 H Platelet Count 279 Mean Platelet Volume 10.0 Neutrophils % 79.9 H Lymphocytes % 8.7 L Monocytes % 8.0 Eosinophils % 0.4 Basophils % 0.2 Nucleated Red Blood Cells % 0.0 Neutrophils # 9.0 H Lymphocytes # 1.0 Monocytes # 0.9 Eosinophils # 0.1 Basophils # 0.0 Nucleated Red Blood Cells # 0.0 Test 02/11/17 05:31 02/11/17 13:03 Bedside Glucose 196 199 Medications Medications Current Medications Ondansetron HCl (Zofran Inj) 4 mg Q6H PRN IV NAUSEA AND/OR VOMITING Last administered on 12/13/16 01:13; Admin Dose 4 MG; Start 12/02/16 at 22:30 Miscellaneous Information 1 ea NOTE XX ; Start 12/02/16 at 23:00 Glucose (Glutose) 15 gm Q15M PRN PO DECREASED GLUCOSE; Start 12/02/16 at 23:00 Glucose (Glutose) 22.5 gm Q15M PRN PO DECREASED GLUCOSE; Start 12/02/16 at 23: 00 Dextrose (D50w Syringe) 25 ml Q15M PRN IV DECREASED GLUCOSE Last administered on 01/26/17 05:21; Admin Dose 25 ML; Start 12/02/16 at 23:00 Dextrose (D50w Syringe) 50 ml Q15M PRN IV DECREASED GLUCOSE Last administered on 01/23/17 04:58; Admin Dose 50 ML; Start 12/02/16 at 23:00 Glucagon (Glucagen) 1 mg Q15M PRN IM DECREASED GLUCOSE; Start 12/02/16 at 23:00 Glucose (Glutose) 15 gm Q15M PRN BUCCAL DECREASED GLUCOSE; Start 12/02/16 at 23 :00 Acetaminophen (Tylenol Supp) 650 mg Q6H PRN [place] ELEVATED TEMPERATURE Last administered on 01/13/17 20:32; Admin Dose 650 MG; Start 12/09/16 at 17:00 Hydralazine HCl (Apresoline) 10 mg Q6H PRN IV SBP>150mm hg Last administered on 12/19/16 08:50; Admin Dose 10 MG; Start 12/11/16 at 10:30 Morphine Sulfate (morphine) 2 mg Q2H PRN IV PAIN LEVEL 4-7; Start 12/13/16 at 10 :00 Collagenase (Santyl) 1 applic DAILY TOP Last administered on 02/11/17 09:00; Admin Dose 1 APPLIC; Start 01/04/17 at 09:00 Metoprolol Tartrate (Lopressor) 5 mg Q4 PRN IV FOR H.R>110; Start 01/12/17 at 17:30 Acetaminophen (Tylenol Liquid) 650 mg Q6H PRN NGT PAIN AND OR ELEVATED TEMP Last administered on 02/03/17 17:37; Admin Dose 650 MG; Start 01/13/17 at 23:30 Acetaminophen/ Hydrocodone Bitart ([place] (5/325)) 1 tab Q6H PRN NGT PAIN LEVEL 4-7; Start 01/13/17 at 23:30 Levetiracetam (Keppra Liquid) 1,000 mg DAILY NGT Last administered on 09:35; Admin Dose 1,000 MG; Start 01/14/17 at 09:00 Meclizine HCl (Antivert) 25 mg TID PRN NGT dizziness; Start 01/13/17 at 20:00 Zolpidem Tartrate (Ambien) 5 mg HS PRN NGT INSOMNIA; Start 01/13/17 at 20:00 Docusate Sodium (Colace Liquid Cup) 100 mg BID NGT Last administered on 09:34; Admin Dose 100 MG; Start 01/13/17 at 21:00 Metoprolol Tartrate (Lopressor) 12.5 mg BID NGT Last administered on 02/11/17 09:46; Admin Dose 12.5 MG; Start 01/24/17 at 21:00 Nystatin 5 ml 5 ml Q6 PO Last administered on 02/11/17 13:05; Admin Dose 5 ML ; Start 01/31/17 at 12:00 Cefepime HCl (Maxipime 1gm/50 ml (Pmx)) 50 ml @ 100 mls/hr DAILY IVPB Last administered on 02/11/17 09:35; Admin Dose 100 MLS/HR; Start 02/02/17 at 11:00 Insulin Glargine (Lantus) 40 unit DAILY@20 SC Last administered on 02/10/17 20 :48; Admin Dose 40 UNIT; Start 02/04/17 at 20:00 Tobramycin TOBRAMYCIN PER PHARMACY NOTE XX ; Start 02/04/17 at 20:30 Caspofungin/ Sodium Chloride (Cancidas/NS) 250 ml @ 250 mls/hr Q24H IVPB Last administered on 02/10/17 20:45; Admin Dose 250 MLS/HR; Start 02/05/17 at 22:00 Lansoprazole (Prevacid) 30 mg DAILY@06 GTB Last administered on 02/11/17 05:33 ; Admin Dose 30 MG; Start 02/09/17 at 06:00 Insulin Aspart (Novolog Insulin Pen) NOVOLOG *MODERATE* ALGORI... Q6 SC Last administered on 02/11/17 13:07; Admin Dose 4 UNIT; Start 02/09/17 at 18:00 Amiodarone HCl (Cordarone) 200 mg Q12 NGT Last administered on 02/11/17 09:44 ; Admin Dose 200 MG; Start 02/10/17 at 21:00 VICENTE LESLIE Feb 11, 2017 14:25
--- NOTE | 2017-02-11 15:28 | CONS ---
Date/Time of Note Date/Time of Note DATE: 02/11/17 TIME: 15:18 Assessment/Plan Assessment/Plan Additional Assessment/Plan -- recurrent cardiopulmonary arrest on 12/09/2016 and on 01/08/2017 possible recurrent sepsis due to pneumonia - recurrent cardiopulmonary arrest on 12/09/2016 and on 01/08/2017 - s/p sepsis due to possible tracheobronchitis/pneumonia - recurrent pneumonia due to pseudomonas - thrush, refractory to nystatin - funguria - bleeding from trach site - s/p recurrent sepsis - 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 Blood cultures from HD catheter on 12/13/2016 are negative to date. 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 MRI on 12/06/2016 and bone scan on showed early OM of the distal phalanx of the left great toe and left fourth proximal phalanx. superficial swab grew inna only. At present, no e/o persistent infection - recurrent pleural effusion - s/p right pleural effusion s/p thoracentesis with .9L removed on 12/16/2016; ( Note: there is no pleural fluid cx since orders were placed after Right thoracentesis, and Left thoracentesis was not performed on 12/17/16 d/t insufficient fluid) - ARANZA on CKD that progressed to ESRD and started on HD from 12/09/2016 - oliguria - improved - A fib -> PAF - small nonreversible perfusion abnormality in the inferoapical and inferior carver; EF 36% per Lexiscan 12/24/2016 - severe , EF 40-45% per TTE 12/17/16 - DM - Hgb A1c 8.7% - HTN associated with DM - acute encephalopathy with anoxic brain injury - unstageable decubitus ulcer of coccyx, no evidence of infection - dysphagia s/p G-tube placement 02/08/2017 NOTE: Pt completed 6 weeks (12/03/2016-01/15/2017) of antibiotics to treat early OM of the distal phalanx of the left great toe and left fourth proximal phalanx ; s/p pip/tazo 12/03/16-01/08/17; linezolid 01/08/17-01/20/17; caspofungin 01/12/17-01/21/17, restarted recommendations: - continue renally dosed cefepime (restarted on 02/02/2017-) and IV tobramycin (-) for pseudomonas - continue empiric caspofungin (02/04/2017-) - continue nystatin for thrush - wound care of the coccyx and upper back DW dR Wilson/ALINA Jaime Consultation Date/Type/Reason Admit Date/Time Dec 02, 2016 at 21:01 Initial Consult Date 12/08/16 Type of Consultation: cardiology Referring Provider: VIET PARKER MD 24 HR Interval Summary Constitutional: requiring IVF, requiring O2 Exam/Review of Systems Vital Signs Vitals Vital Signs Date Time Temp Pulse Resp B/P Pulse Ox O2 Delivery O2 Flow Rate FiO2 02/11/17 13:53 78 16 99 35 02/11/17 12:07 98.0 99/54 02/08/17 08:30 Bag Valve Mask 02/07/17 18:08 5.0 Intake and Output 02/10/17 02/10/17 02/11/17 15:00 23:00 07:00 Intake Total 855 ml Output Total 463 ml Balance 392 ml Exam Constitutional: non-verbal Respiratory: diminished breath sounds, other (ronchi. diminshed BS at bases bilaterally) Cardiovascular: nl pulses, regular rate and rhythm Gastrointestinal: non-tender, soft Musculoskeletal: muscle weakness Extremities: normal pulses Neurological: unresponsive Results Result Diagram: 02/11/17 0524 02/11/17 0520 Results 24 hrs Laboratory Tests Test 02/10/17 17:49 02/10/17 23:20 02/11/17 05:20 02/11/17 05:24 Bedside Glucose 214 222 H Sodium Level 141 Potassium Level 3.8 Chloride Level 98 Carbon Dioxide Level 35 H Anion Gap 12 Blood Urea Nitrogen 53 H Creatinine 1.25 H Glucose Level 212 Calcium Level 8.4 White Blood Count 11.3 #H Red Blood Count 3.02 L Hemoglobin 8.5 L Hematocrit 27.4 L Mean Corpuscular Volume 90.7 Mean Corpuscular Hemoglobin 28.1 L Mean Corpuscular Hemoglobin Concent 31.0 L Red Cell Distribution Width 14.6 H Platelet Count 279 Mean Platelet Volume 10.0 Neutrophils % 79.9 H Lymphocytes % 8.7 L Monocytes % 8.0 Eosinophils % 0.4 Basophils % 0.2 Nucleated Red Blood Cells % 0.0 Neutrophils # 9.0 H Lymphocytes # 1.0 Monocytes # 0.9 Eosinophils # 0.1 Basophils # 0.0 Nucleated Red Blood Cells # 0.0 Test 02/11/17 05:31 02/11/17 13:03 Bedside Glucose 196 199 Medications Medications Current Medications Ondansetron HCl (Zofran Inj) 4 mg Q6H PRN IV NAUSEA AND/OR VOMITING Last administered on 12/13/16 01:13; Admin Dose 4 MG; Start 12/02/16 at 22:30 Miscellaneous Information 1 ea NOTE XX ; Start 12/02/16 at 23:00 Glucose (Glutose) 15 gm Q15M PRN PO DECREASED GLUCOSE; Start 12/02/16 at 23:00 Glucose (Glutose) 22.5 gm Q15M PRN PO DECREASED GLUCOSE; Start 12/02/16 at 23: 00 Dextrose (D50w Syringe) 25 ml Q15M PRN IV DECREASED GLUCOSE Last administered on 01/26/17 05:21; Admin Dose 25 ML; Start 12/02/16 at 23:00 Dextrose (D50w Syringe) 50 ml Q15M PRN IV DECREASED GLUCOSE Last administered on 01/23/17 04:58; Admin Dose 50 ML; Start 12/02/16 at 23:00 Glucagon (Glucagen) 1 mg Q15M PRN IM DECREASED GLUCOSE; Start 12/02/16 at 23:00 Glucose (Glutose) 15 gm Q15M PRN BUCCAL DECREASED GLUCOSE; Start 12/02/16 at 23 :00 Acetaminophen (Tylenol Supp) 650 mg Q6H PRN [place] ELEVATED TEMPERATURE Last administered on 01/13/17 20:32; Admin Dose 650 MG; Start 12/09/16 at 17:00 Hydralazine HCl (Apresoline) 10 mg Q6H PRN IV SBP>150mm hg Last administered on 12/19/16 08:50; Admin Dose 10 MG; Start 12/11/16 at 10:30 Morphine Sulfate (morphine) 2 mg Q2H PRN IV PAIN LEVEL 4-7; Start 12/13/16 at 10 :00 Collagenase (Santyl) 1 applic DAILY TOP Last administered on 02/11/17 09:00; Admin Dose 1 APPLIC; Start 01/04/17 at 09:00 Metoprolol Tartrate (Lopressor) 5 mg Q4 PRN IV FOR H.R>110; Start 01/12/17 at 17:30 Acetaminophen (Tylenol Liquid) 650 mg Q6H PRN NGT PAIN AND OR ELEVATED TEMP Last administered on 02/03/17 17:37; Admin Dose 650 MG; Start 01/13/17 at 23:30 Acetaminophen/ Hydrocodone Bitart ([place] (5/325)) 1 tab Q6H PRN NGT PAIN LEVEL 4-7; Start 01/13/17 at 23:30 Levetiracetam (Keppra Liquid) 1,000 mg DAILY NGT Last administered on 09:35; Admin Dose 1,000 MG; Start 01/14/17 at 09:00 Meclizine HCl (Antivert) 25 mg TID PRN NGT dizziness; Start 01/13/17 at 20:00 Zolpidem Tartrate (Ambien) 5 mg HS PRN NGT INSOMNIA; Start 01/13/17 at 20:00 Docusate Sodium (Colace Liquid Cup) 100 mg BID NGT Last administered on 09:34; Admin Dose 100 MG; Start 01/13/17 at 21:00 Metoprolol Tartrate (Lopressor) 12.5 mg BID NGT Last administered on 02/11/17 09:46; Admin Dose 12.5 MG; Start 01/24/17 at 21:00 Nystatin 5 ml 5 ml Q6 PO Last administered on 02/11/17 13:05; Admin Dose 5 ML ; Start 01/31/17 at 12:00 Cefepime HCl (Maxipime 1gm/50 ml (Pmx)) 50 ml @ 100 mls/hr DAILY IVPB Last administered on 02/11/17 09:35; Admin Dose 100 MLS/HR; Start 02/02/17 at 11:00 Insulin Glargine (Lantus) 40 unit DAILY@20 SC Last administered on 02/10/17 20 :48; Admin Dose 40 UNIT; Start 02/04/17 at 20:00 Tobramycin TOBRAMYCIN PER PHARMACY NOTE XX ; Start 02/04/17 at 20:30 Caspofungin/ Sodium Chloride (Cancidas/NS) 250 ml @ 250 mls/hr Q24H IVPB Last administered on 02/10/17 20:45; Admin Dose 250 MLS/HR; Start 02/05/17 at 22:00 Lansoprazole (Prevacid) 30 mg DAILY@06 GTB Last administered on 02/11/17 05:33 ; Admin Dose 30 MG; Start 02/09/17 at 06:00 Insulin Aspart (Novolog Insulin Pen) NOVOLOG *MODERATE* ALGORI... Q6 SC Last administered on 02/11/17 13:07; Admin Dose 4 UNIT; Start 02/09/17 at 18:00 Amiodarone HCl (Cordarone) 200 mg Q12 NGT Last administered on 02/11/17 09:44 ; Admin Dose 200 MG; Start 02/10/17 at 21:00 Apixaban (Eliquis) 2.5 mg BID PO ; Start 02/11/17 at 21:00 YULIANA SIMMONS Feb 11, 2017 15:27
--- NOTE | 2017-02-11 16:33 | CONS ---
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 Blood cultures from HD catheter on 12/13/2016 are negative to date. 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 MRI on 12/06/2016 and bone scan on showed early OM of the distal phalanx of the left great toe and left fourth proximal phalanx. superficial swab grew inna only - s/p right pleural effusion s/p thoracentesis with .9L removed on 12/16/2016 - severe , EF 40-45% per TTE 12/17/16 - DM - Hgb A1c 8.7% - HTN associated with DM Tracheostomy site bleeding Plan: HD ordered for tomorrow s/p Tracheostomy, on ventilator pt will need HD palcement at a unit where they can do a HD for pt with tracheostomy and PEG tube placemen t- caseworker intake has been instructed to set up [facility] pt has severe , very labile BP sometimes with HD will continue to follow up for HD need Consultation Date/Type/Reason Admit Date/Time Dec 02, 2016 at 21:01 Initial Consult Date Type of Consultation: NEPHROLOGY Referring Provider: VIET PARKER MD Exam/Review of Systems Vital Signs Vitals Vital Signs Date Time Temp Pulse Resp B/P Pulse Ox O2 Delivery O2 Flow Rate FiO2 02/11/17 16:27 75 02/11/17 15:49 98.7 19 85/55 95 02/11/17 15:20 35 02/08/17 08:30 Bag Valve Mask 02/07/17 18:08 5.0 Intake and Output 02/10/17 02/10/1702/11/17 15:00 23:00 07:00 Intake Total 855 ml Output Total 463 ml Balance 392 ml Exam Constitutional: frail, non-verbal Neck: + tracheostomy Respiratory: crackles/rales Cardiovascular: nl pulses, regular rate and rhythm Gastrointestinal: non-tender, soft Musculoskeletal: nl extremities to inspection Extremities: No edema Neurological: confused, lethargic Skin: other (unstageable ulcer on coccyx) Results Result Diagram: 02/11/17 0524 02/11/17 0520 Results 24 hrs Laboratory Tests Test 02/10/17 17:49 02/10/17 23:20 02/11/17 05:20 02/11/17 05:24 Bedside Glucose 214 222 H Sodium Level 141 Potassium Level 3.8 Chloride Level 98 Carbon Dioxide Level 35 H Anion Gap 12 Blood Urea Nitrogen 53 H Creatinine 1.25 H Glucose Level 212 Calcium Level 8.4 White Blood Count 11.3 #H Red Blood Count 3.02 L Hemoglobin 8.5 L Hematocrit 27.4 L Mean Corpuscular Volume 90.7 Mean Corpuscular Hemoglobin 28.1 L Mean Corpuscular Hemoglobin Concent 31.0 L Red Cell Distribution Width 14.6 H Platelet Count 279 Mean Platelet Volume 10.0 Neutrophils % 79.9 H Lymphocytes % 8.7 L Monocytes % 8.0 Eosinophils % 0.4 Basophils % 0.2 Nucleated Red Blood Cells % 0.0 Neutrophils # 9.0 H Lymphocytes # 1.0 Monocytes # 0.9 Eosinophils # 0.1 Basophils # 0.0 Nucleated Red Blood Cells # 0.0 Test 02/11/17 05:31 02/11/17 13:03 Bedside Glucose 196 199 Medications Medications Current Medications Ondansetron HCl (Zofran Inj) 4 mg Q6H PRN IV NAUSEA AND/OR VOMITING Last administered on 12/13/16 01:13; Admin Dose 4 MG; Start 12/02/16 at 22:30 Miscellaneous Information 1 ea NOTE XX ; Start 12/02/16 at 23:00 Glucose (Glutose) 15 gm Q15M PRN PO DECREASED GLUCOSE; Start 12/02/16 at 23:00 Glucose (Glutose) 22.5 gm Q15M PRN PO DECREASED GLUCOSE; Start 12/02/16 at 23: 00 Dextrose (D50w Syringe) 25 ml Q15M PRN IV DECREASED GLUCOSE Last administered on 01/26/17 05:21; Admin Dose 25 ML; Start 12/02/16 at 23:00 Dextrose (D50w Syringe) 50 ml Q15M PRN IV DECREASED GLUCOSE Last administered on 01/23/17 04:58; Admin Dose 50 ML; Start 12/02/16 at 23:00 Glucagon (Glucagen) 1 mg Q15M PRN IM DECREASED GLUCOSE; Start 12/02/16 at 23:00 Glucose (Glutose) 15 gm Q15M PRN BUCCAL DECREASED GLUCOSE; Start 12/02/16 at 23 :00 Acetaminophen (Tylenol Supp) 650 mg Q6H PRN [place] ELEVATED TEMPERATURE Last administered on 01/13/17 20:32; Admin Dose 650 MG; Start 12/09/16 at 17:00 Hydralazine HCl (Apresoline) 10 mg Q6H PRN IV SBP>150mm hg Last administered on 12/19/16 08:50; Admin Dose 10 MG; Start 12/11/16 at 10:30 Morphine Sulfate (morphine) 2 mg Q2H PRN IV PAIN LEVEL 4-7; Start 12/13/16 at 10 :00 Collagenase (Santyl) 1 applic DAILY TOP Last administered on 02/11/17 09:00; Admin Dose 1 APPLIC; Start 01/04/17 at 09:00 Metoprolol Tartrate (Lopressor) 5 mg Q4 PRN IV FOR H.R>110; Start 01/12/17 at 17:30 Acetaminophen (Tylenol Liquid) 650 mg Q6H PRN NGT PAIN AND [place] ELEVATED TEMP Last administered on 02/03/17 17:37; Admin Dose 650 MG; Start 01/13/17 at 23:30 Acetaminophen/ Hydrocodone Bitart ([place] (5/325)) 1 tab Q6H PRN NGT PAIN LEVEL 4-7; Start 01/13/17 at 23:30 Levetiracetam (Keppra Liquid) 1,000 mg DAILY NGT Last administered on 09:35; Admin Dose 1,000 MG; Start 01/14/17 at 09:00 Meclizine HCl (Antivert) 25 mg TID PRN NGT dizziness; Start 01/13/17 at 20:00 Zolpidem Tartrate (Ambien) 5 mg HS PRN NGT INSOMNIA; Start 01/13/17 at 20:00 Docusate Sodium (Colace Liquid Cup) 100 mg BID NGT Last administered on 09:34; Admin Dose 100 MG; Start 01/13/17 at 21:00 Metoprolol Tartrate (Lopressor) 12.5 mg BID NGT Last administered on 02/11/17 09:46; Admin Dose 12.5 MG; Start 01/24/17 at 21:00 Nystatin 5 ml 5 ml Q6 PO Last administered on 02/11/17 13:05; Admin Dose 5 ML ; Start 01/31/17 at 12:00 Cefepime HCl (Maxipime 1gm/50 ml (Pmx)) 50 ml @ 100 mls/hr DAILY IVPB Last administered on 02/11/17 09:35; Admin Dose 100 MLS/HR; Start 02/02/17 at 11:00 Insulin Glargine (Lantus) 40 unit DAILY@20 SC Last administered on 02/10/17 20 :48; Admin Dose 40 UNIT; Start 02/04/17 at 20:00 Tobramycin TOBRAMYCIN PER PHARMACY NOTE XX ; Start 02/04/17 at 20:30 Caspofungin/ Sodium Chloride (Cancidas/NS) 250 ml @ 250 mls/hr Q24H IVPB Last administered on 02/10/17 20:45; Admin Dose 250 MLS/HR; Start 02/05/17 at 22:00 Lansoprazole (Prevacid) 30 mg DAILY@06 GTB Last administered on 02/11/17 05:33 ; Admin Dose 30 MG; Start 02/09/17 at 06:00 Insulin Aspart (Novolog Insulin Pen) NOVOLOG *MODERATE* ALGORI... Q6 SC Last administered on 02/11/17 13:07; Admin Dose 4 UNIT; Start 02/09/17 at 18:00 Amiodarone HCl (Cordarone) 200 mg Q12 NGT Last administered on 02/11/17 09:44 ; Admin Dose 200 MG; Start 02/10/17 at 21:00 Apixaban (Eliquis) 2.5 mg BID PO ; Start 02/11/17 at 21:00 TASHIA MCGARRY MD Feb 11, 2017 16:33
[2017-02-11] MEDS: APIXABAN 5 MG TABLET PO SCH (21:37)
[2017-02-11] MEDS: INSULIN GLARGINE [LANtus] 3 ML PEN SC SCH (21:38)
[2017-02-11] MEDS: CASPOFUNGIN 50 MG in SOD CHLORIDE 0.9% 250 ML IVPB SCH (22:17)
[2017-02-12] VITALS (35 sets, daily range): BP systolic 86–114; BP diastolic 42–62; PULSE 60–84; RESP 14–24
[2017-02-12] MEDS: NYSTATIN SUSP 5 ML CUP PO SCH ×4 (00:53→17:56)
[2017-02-12] MEDS: INSULIN ASPART [NOVOLOG] 3 ML PEN SC SCH ×4 (00:54→17:57)
[2017-02-12] MEDS: ALBUTEROL 18 GM INHALER INH SCH ×4 (01:12→20:41)
[2017-02-12] MEDS: LANSOPRAZOLE 30 MG CAP GTB SCH (05:15)
[2017-02-12 07:27] LABS: BASOPHILS % 0.2 % (0.0-2.0); EOSINOPHILS % 0.3 % (0.0-7.0); HEMATOCRIT 26.9 % (42.0-52.0); HEMOGLOBIN 8.6 g/dl (14.0-18.0); LYMPHOCYTES # 1.7 10^3/ul (0.8-2.9); LYMPHOCYTES % 10.8 % (15.0-51.0); MEAN CORPUSCULAR HEMOGLOBIN 28.9 pg (29.0-33.0); MEAN CORPUSCULAR VOLUME 90.3 fl (82.0-101.0); MONOCYTES % 6.2 % (0.0-11.0); NEUTROPHIL # 12.7 10^3/ul (1.6-7.5); NEUTROPHILS % 80.1 % (39.0-77.0); PLATELET COUNT 295 10^3/UL (140-415); RED BLOOD COUNT 2.98 10^6/ul (4.70-6.10); RED CELL DISTRIBUTION WIDTH 14.3 % (11.5-14.5); WHITE BLOOD COUNT 15.8 10^3/ul (4.8-10.8)
[2017-02-12 07:47] LABS: CALCIUM 9.2 mg/dl (8.4-10.2); CREATININE 1.55 mg/dl (0.61-1.24); POTASSIUM 4.1 mmol/L (3.5-5.1)
[2017-02-12] MEDS: CEFEPIME 1GM/50 ML (PMX) 50 ML IVPB SCH (10:45)
[2017-02-12] MEDS: DOCUSATE SODIUM 10 MG/ML (10ML CUP) NGT SCH ×2 (10:45→21:57)
[2017-02-12] MEDS: LEVETIRACETAM (100 MG/ML) 5ML CUP NGT SCH (10:48)
[2017-02-12] MEDS: APIXABAN 5 MG TABLET PO SCH ×2 (10:48→21:57)
[2017-02-12] MEDS: COLLAGENASE 30 GM TUBE TOP SCH (10:48)
[2017-02-12] MEDS: ALBUMIN HUMAN 25% 100 ML IV PRN (10:50)
[2017-02-12] MEDS: AMIODARONE 200 MG TAB NGT SCH ×2 (10:51→22:02)
[2017-02-12] MEDS: METOPROLOL 25 MG TAB NGT SCH ×2 (10:51→21:00)
--- NOTE | 2017-02-12 12:12 | RADRPT ---
PROCEDURE: XR Chest 1 View. CLINICAL INDICATION: Shortness of breath, leukocytosis. TECHNIQUE: AP view of the chest was obtained. COMPARISON: February 01, 2017 FINDINGS: The heart size is within normal limits. Calcified atherosclerosis is noted in the aorta. Tracheosto my tube is stable and appears in grossly appropriate location. Right-sided dialysis catheter is unc hanged. Central pulmonary vascular congestion and interstitial prominence is seen in both lungs. S cattered atelectasis is noted in the right lower lobe. No consolidations are identified. No pneumot horax is seen. The osseous structures are osteopenic, but appear grossly intact. Degenerative iglesias ges are seen in the shoulders. IMPRESSION: Calcified atherosclerosis in the aorta. Central pulmonary vascular congestion and interstitial prominence in both lungs. Scattered atelectasis in the right lower lobe. RPTAT: AA .Bishnu Ramos MD, MD Date Time Electronically viewed and signed by .Bishnu Ramos MD, MD on 02/12/2017 12:12 .P/
[2017-02-12] MEDS: TOBRAMYCIN 100 MG in SOD CHLORIDE 0.9% 50 ML IVPB SCH (13:03)
--- NOTE | 2017-02-12 13:58 | CONS ---
Date/Time of Note Date/Time of Note DATE: 02/12/17 TIME: 13:57 Assessment/Plan Assessment/Plan Chief Complaint/Hosp Course -- recurrent cardiopulmonary arrest on 12/09/2016 and on 01/08/2017 possible recurrent sepsis due to pneumonia - recurrent cardiopulmonary arrest on 12/09/2016 and on 01/08/2017 - s/p sepsis due to possible tracheobronchitis/pneumonia - recurrent pneumonia due to pseudomonas - thrush, refractory to nystatin - funguria - bleeding from trach site - s/p recurrent sepsis - 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 Blood cultures from HD catheter on 12/13/2016 are negative to date. 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 MRI on 12/06/2016 and bone scan on showed early OM of the distal phalanx of the left great toe and left fourth proximal phalanx. superficial swab grew inna only. At present, no e/o persistent infection - recurrent pleural effusion - s/p right pleural effusion s/p thoracentesis with .9L removed on 12/16/2016; ( Note: there is no pleural fluid cx since orders were placed after Right thoracentesis, and Left thoracentesis was not performed on 12/17/16 d/t insufficient fluid) - ARANZA on CKD that progressed to ESRD and started on HD from 12/09/2016 - oliguria - improved - A fib -> PAF - small nonreversible perfusion abnormality in the inferoapical and inferior carver; EF 36% per Lexiscan 12/24/2016 - severe , EF 40-45% per TTE 12/17/16 - DM - Hgb A1c 8.7% - HTN associated with DM - acute encephalopathy with anoxic brain injury - unstageable decubitus ulcer of coccyx, no evidence of infection - dysphagia s/p G-tube placement 02/08/2017 NOTE: Pt completed 6 weeks (12/03/2016-01/15/2017) of antibiotics to treat early OM of the distal phalanx of the left great toe and left fourth proximal phalanx ; s/p pip/tazo 12/03/16-01/08/17; linezolid 01/08/17-01/20/17; caspofungin 01/12/17-01/21/17, restarted recommendations: - check cdiff - monitor wbc - check procalc - continue renally dosed cefepime (restarted on 02/02/2017-) and IV tobramycin (-) for pseudomonas - continue empiric caspofungin (02/04/2017-) - continue nystatin for thrush - wound care of the coccyx and upper back Problems: Consultation Date/Type/Reason Admit Date/Time Dec 02, 2016 at 21:01 Type of Consultation: id Referring Provider: VIET PARKER MD Exam/Review of Systems Vital Signs Vitals Vital Signs Date Time Temp Pulse Resp B/P Pulse Ox O2 Delivery O2 Flow Rate FiO2 02/12/17 13:10 76 20 98 35 02/12/17 12:10 98.1 95/50 Mechanical Ventilator Intake and Output 02/11/17 02/11/17 02/12/17 15:00 23:00 07:00 Intake Total 500 ml 955 ml 1210 ml Output Total 3000 ml 200 ml Balance -2500 ml 755 ml 1210 ml Exam Constitutional: non-verbal Psych: no complaints Head: atraumatic, normocephalic Respiratory: clear to auscultation Cardiovascular: regular rate and rhythm Gastrointestinal: soft Results Result Diagram: 02/12/17 0625 02/12/17 0625 Results 24 hrs Laboratory Tests Test 02/11/17 17:56 02/11/17 19:57 02/12/17 00:50 02/12/17 05:13 Bedside Glucose 203 211 243 H 202 Test 02/12/17 06:25 02/12/17 12:10 White Blood Count 15.8 #H Red Blood Count 2.98 L Hemoglobin 8.6 L Hematocrit 26.9 L Mean Corpuscular Volume 90.3 Mean Corpuscular Hemoglobin 28.9 L Mean Corpuscular Hemoglobin Concent 32.0 Red Cell Distribution Width 14.3 Platelet Count 295 Mean Platelet Volume 10.0 Neutrophils % 80.1 H Lymphocytes % 10.8 L Monocytes % 6.2 Eosinophils % 0.3 Basophils % 0.2 Nucleated Red Blood Cells % 0.0 Neutrophils # 12.7 H Lymphocytes # 1.7 Monocytes # 1.0 H Eosinophils # 0.0 Basophils # 0.0 Nucleated Red Blood Cells # 0.0 Sodium Level 141 Potassium Level 4.1 Chloride Level 91 L Carbon Dioxide Level 31 Anion Gap 23 #H Blood Urea Nitrogen 51 H Creatinine 1.55 H Glucose Level 165 Calcium Level 9.2 Bedside Glucose 189 Medications Medications Current Medications Ondansetron HCl (Zofran Inj) 4 mg Q6H PRN IV NAUSEA AND/OR VOMITING Last administered on 12/13/16 01:13; Admin Dose 4 MG; Start 12/02/16 at 22:30 Miscellaneous Information 1 ea NOTE XX ; Start 12/02/16 at 23:00 Glucose (Glutose) 15 gm Q15M PRN PO DECREASED GLUCOSE; Start 12/02/16 at 23:00 Glucose (Glutose) 22.5 gm Q15M PRN PO DECREASED GLUCOSE; Start 12/02/16 at 23: 00 Dextrose (D50w Syringe) 25 ml Q15M PRN IV DECREASED GLUCOSE Last administered on 01/26/17 05:21; Admin Dose 25 ML; Start 12/02/16 at 23:00 Dextrose (D50w Syringe) 50 ml Q15M PRN IV DECREASED GLUCOSE Last administered on 01/23/17 04:58; Admin Dose 50 ML; Start 12/02/16 at 23:00 Glucagon (Glucagen) 1 mg Q15M PRN IM DECREASED GLUCOSE; Start 12/02/16 at 23:00 Glucose (Glutose) 15 gm Q15M PRN BUCCAL DECREASED GLUCOSE; Start 12/02/16 at 23 :00 Acetaminophen (Tylenol Supp) 650 mg Q6H PRN [place] ELEVATED TEMPERATURE Last administered on 01/13/17 20:32; Admin Dose 650 MG; Start 12/09/16 at 17:00 Hydralazine HCl (Apresoline) 10 mg Q6H PRN IV SBP>150mm hg Last administered on 12/19/16 08:50; Admin Dose 10 MG; Start 12/11/16 at 10:30 Morphine Sulfate (morphine) 2 mg Q2H PRN IV PAIN LEVEL 4-7; Start 12/13/16 at 10 :00 Collagenase (Santyl) 1 applic DAILY TOP Last administered on 02/12/17 10:48; Admin Dose 1 APPLIC; Start 01/04/17 at 09:00 Metoprolol Tartrate (Lopressor) 5 mg Q4 PRN IV FOR H.R>110; Start 01/12/17 at 17:30 Acetaminophen (Tylenol Liquid) 650 mg Q6H PRN NGT PAIN AND OR ELEVATED TEMP Last administered on 02/03/17 17:37; Admin Dose 650 MG; Start 01/13/17 at 23:30 Acetaminophen/ Hydrocodone Bitart ([place] (5/325)) 1 tab Q6H PRN NGT PAIN LEVEL 4-7; Start 01/13/17 at 23:30 Levetiracetam (Keppra Liquid) 1,000 mg DAILY NGT Last administered on 02/12/17 10:48; Admin Dose 1,000 MG; Start 01/14/17 at 09:00 Meclizine HCl (Antivert) 25 mg TID PRN NGT dizziness; Start 01/13/17 at 20:00 Zolpidem Tartrate (Ambien) 5 mg HS PRN NGT INSOMNIA; Start 01/13/17 at 20:00 Docusate Sodium (Colace Liquid Cup) 100 mg BID NGT Last administered on 10:45; Admin Dose 100 MG; Start 01/13/17 at 21:00 Metoprolol Tartrate (Lopressor) 12.5 mg BID NGT Last administered on 02/11/17 09:46; Admin Dose 12.5 MG; Start 01/24/17 at 21:00 Nystatin 5 ml 5 ml Q6 PO Last administered on 02/12/17 12:15; Admin Dose 5 ML; Start 01/31/17 at 12:00 Cefepime HCl (Maxipime 1gm/50 ml (Pmx)) 50 ml @ 100 mls/hr DAILY IVPB Last administered on 02/12/17 10:45; Admin Dose 100 MLS/HR; Start 02/02/17 at 11:00 Insulin Glargine (Lantus) 40 unit DAILY@20 SC Last administered on 02/11/17 21 :38; Admin Dose 40 UNIT; Start 02/04/17 at 20:00 Tobramycin TOBRAMYCIN PER PHARMACY NOTE XX ; Start 02/04/17 at 20:30 Caspofungin/ Sodium Chloride (Cancidas/NS) 250 ml @ 250 mls/hr Q24H IVPB Last administered on 02/11/17 22:17; Admin Dose 250 MLS/HR; Start 02/05/17 at 22:00 Lansoprazole (Prevacid) 30 mg DAILY@06 GTB Last administered on 02/12/17 05:15 ; Admin Dose 30 MG; Start 02/09/17 at 06:00 Insulin Aspart (Novolog Insulin Pen) NOVOLOG *MODERATE* ALGORI... Q6 SC Last administered on 02/12/17 12:17; Admin Dose 4 UNIT; Start 02/09/17 at 18:00 Amiodarone HCl (Cordarone) 200 mg Q12 NGT Last administered on 02/12/17 10:51; Admin Dose 200 MG; Start 02/10/17 at 21:00 Apixaban (Eliquis) 2.5 mg BID PO Last administered on 02/12/17 10:48; Admin Dose 2.5 MG; Start 02/11/17 at 21:00 NIKHIL RAM MD Feb 12, 2017 13:58
--- NOTE | 2017-02-12 14:18 | CONS ---
Date/Time of Note Date/Time of Note DATE: 02/12/17 TIME: 14:16 Assessment/Plan Assessment/Plan Additional Assessment/Plan 1. Atrial fibrillation-Having episodes of PAF with reasonable rate control. Currently in SR - rate controlled 2. Hypotension-borderline and labile 3. Abnormal electrocardiogram with inferolateral T-wave inversions. 4. Respiratory failure-s/p trach placement - on vent 5. Nonhealing toe ulceration-vascular following 6. Peripheral arterial disease by arterial ultrasound of the lower extremities this admission. 7. Diabetes mellitus. 8. Fevers- resolved, on anti-bx now 9. Positive troponin-downtrended - no intervention planned 10.Bradycardia-improved/stable 11.-severe by echo 12.Cardiomyopathy-EF 40-45% by echo/36% by stress with no ischemia but positive scar. EF <30% by echo post arrest 14.Encephalopathy-anoxic 15. s/p cardiopulmonary arrest 01/08 Consultation Date/Type/Reason Admit Date/Time Dec 02, 2016 at 21:01 Initial Consult Date 12/03/16 Type of Consultation: id Referring Provider: VIET PARKER MD 24 HR Interval Summary Free Text/Dictation NO acute events - stbale fluid status - no chest pain - con't supportive rx ROS: No fever, no chills, no nausea, no vomiting, no diarrhea/constipation No recent weight changes No chest pain, no PND, no orthopnea No dizziness, blurred vision No thirst, no heat or cold intolerance (per nurse) Exam/Review of Systems Vital Signs Vitals Vital Signs Date Time Temp Pulse Resp B/P Pulse Ox O2 Delivery O2 Flow Rate FiO2 02/12/17 13:10 76 20 98 35 02/12/17 12:10 98.1 95/50 Mechanical Ventilator Intake and Output 02/11/17 02/11/17 02/12/17 15:00 23:00 07:00 Intake Total 500 ml 955 ml 1210 ml Output Total 3000 ml 200 ml Balance -2500 ml 755 ml 1210 ml Exam General: WN/WD/NAD, AOx 0 HEENT: Unicetric/atraumatic/EOMI (does not follow commands) NECK: trach Lymph: no lymphadenopathy HEART: regular with no S3, II/ systolic murmur at apex LUNGS: Coarse sounds ABD: soft, NT, ND, +BS : Intact Neuro: non focal SKIN: chronic changes EXT: trace edema Results Result Diagram: 02/12/17 0625 02/12/17 0625 Results 24 hrs Laboratory Tests Test 02/11/17 17:56 02/11/17 19:57 02/12/17 00:50 02/12/17 05:13 Bedside Glucose 203 211 243 H 202 Test 02/12/17 06:25 02/12/17 12:10 White Blood Count 15.8 #H Red Blood Count 2.98 L Hemoglobin 8.6 L Hematocrit 26.9 L Mean Corpuscular Volume 90.3 Mean Corpuscular Hemoglobin 28.9 L Mean Corpuscular Hemoglobin Concent 32.0 Red Cell Distribution Width 14.3 Platelet Count 295 Mean Platelet Volume 10.0 Neutrophils % 80.1 H Lymphocytes % 10.8 L Monocytes % 6.2 Eosinophils % 0.3 Basophils % 0.2 Nucleated Red Blood Cells % 0.0 Neutrophils # 12.7 H Lymphocytes # 1.7 Monocytes # 1.0 H Eosinophils # 0.0 Basophils # 0.0 Nucleated Red Blood Cells # 0.0 Sodium Level 141 Potassium Level 4.1 Chloride Level 91 L Carbon Dioxide Level 31 Anion Gap 23 #H Blood Urea Nitrogen 51 H Creatinine 1.55 H Glucose Level 165 Calcium Level 9.2 Bedside Glucose 189 Medications Medications Current Medications Ondansetron HCl (Zofran Inj) 4 mg Q6H PRN IV NAUSEA AND/OR VOMITING Last administered on 12/13/16 01:13; Admin Dose 4 MG; Start 12/02/16 at 22:30 Miscellaneous Information 1 ea NOTE XX ; Start 12/02/16 at 23:00 Glucose (Glutose) 15 gm Q15M PRN PO DECREASED GLUCOSE; Start 12/02/16 at 23:00 Glucose (Glutose) 22.5 gm Q15M PRN PO DECREASED GLUCOSE; Start 12/02/16 at 23: 00 Dextrose (D50w Syringe) 25 ml Q15M PRN IV DECREASED GLUCOSE Last administered on 01/26/17 05:21; Admin Dose 25 ML; Start 12/02/16 at 23:00 Dextrose (D50w Syringe) 50 ml Q15M PRN IV DECREASED GLUCOSE Last administered on 01/23/17 04:58; Admin Dose 50 ML; Start 12/02/16 at 23:00 Glucagon (Glucagen) 1 mg Q15M PRN IM DECREASED GLUCOSE; Start 12/02/16 at 23:00 Glucose (Glutose) 15 gm Q15M PRN BUCCAL DECREASED GLUCOSE; Start 12/02/16 at 23 :00 Acetaminophen (Tylenol Supp) 650 mg Q6H PRN [place] ELEVATED TEMPERATURE Last administered on 01/13/17 20:32; Admin Dose 650 MG; Start 12/09/16 at 17:00 Hydralazine HCl (Apresoline) 10 mg Q6H PRN IV SBP>150mm hg Last administered on 12/19/16 08:50; Admin Dose 10 MG; Start 12/11/16 at 10:30 Morphine Sulfate (morphine) 2 mg Q2H PRN IV PAIN LEVEL 4-7; Start 12/13/16 at 10 :00 Collagenase (Santyl) 1 applic DAILY TOP Last administered on 02/12/17 10:48; Admin Dose 1 APPLIC; Start 01/04/17 at 09:00 Metoprolol Tartrate (Lopressor) 5 mg Q4 PRN IV FOR H.R>110; Start 01/12/17 at 17:30 Acetaminophen (Tylenol Liquid) 650 mg Q6H PRN NGT PAIN AND OR ELEVATED TEMP Last administered on 02/03/17 17:37; Admin Dose 650 MG; Start 01/13/17 at 23:30 Acetaminophen/ Hydrocodone Bitart ([place] (5/325)) 1 tab Q6H PRN NGT PAIN LEVEL 4-7; Start 01/13/17 at 23:30 Levetiracetam (Keppra Liquid) 1,000 mg DAILY NGT Last administered on 02/12/17 10:48; Admin Dose 1,000 MG; Start 01/14/17 at 09:00 Meclizine HCl (Antivert) 25 mg TID PRN NGT dizziness; Start 01/13/17 at 20:00 Zolpidem Tartrate (Ambien) 5 mg HS PRN NGT INSOMNIA; Start 01/13/17 at 20:00 Docusate Sodium (Colace Liquid Cup) 100 mg BID NGT Last administered on 10:45; Admin Dose 100 MG; Start 01/13/17 at 21:00 Metoprolol Tartrate (Lopressor) 12.5 mg BID NGT Last administered on 02/11/17 09:46; Admin Dose 12.5 MG; Start 01/24/17 at 21:00 Nystatin 5 ml 5 ml Q6 PO Last administered on 02/12/17 12:15; Admin Dose 5 ML; Start 01/31/17 at 12:00 Cefepime HCl (Maxipime 1gm/50 ml (Pmx)) 50 ml @ 100 mls/hr DAILY IVPB Last administered on 02/12/17 10:45; Admin Dose 100 MLS/HR; Start 02/02/17 at 11:00 Insulin Glargine (Lantus) 40 unit DAILY@20 SC Last administered on 02/11/17 21 :38; Admin Dose 40 UNIT; Start 02/04/17 at 20:00 Tobramycin TOBRAMYCIN PER PHARMACY NOTE XX ; Start 02/04/17 at 20:30 Caspofungin/ Sodium Chloride (Cancidas/NS) 250 ml @ 250 mls/hr Q24H IVPB Last administered on 02/11/17 22:17; Admin Dose 250 MLS/HR; Start 02/05/17 at 22:00 Lansoprazole (Prevacid) 30 mg DAILY@06 GTB Last administered on 02/12/17 05:15 ; Admin Dose 30 MG; Start 02/09/17 at 06:00 Insulin Aspart (Novolog Insulin Pen) NOVOLOG *MODERATE* ALGORI... Q6 SC Last administered on 02/12/17 12:17; Admin Dose 4 UNIT; Start 02/09/17 at 18:00 Amiodarone HCl (Cordarone) 200 mg Q12 NGT Last administered on 02/12/17 10:51; Admin Dose 200 MG; Start 02/10/17 at 21:00 Apixaban (Eliquis) 2.5 mg BID PO Last administered on 02/12/17 10:48; Admin Dose 2.5 MG; Start 02/11/17 at 21:00 DAVE NICOLE MD Feb 12, 2017 14:18
--- NOTE | 2017-02-12 16:06 | PN ---
Date/Time of Note Date/Time of Note DATE: 02/12/17 TIME: 16:03 Assessment/Plan VTE Prophylaxis VTE Prophylaxis Intervention: other Lines/Catheters IV C[facility]ter Type (from [facility]): [facility] Urinary Cath still in place: No Assessment/Plan Assessment/Plan - Dysphagia. S/p G-tube by Dr. Smith. Continue G-tube feeding monitor residual. - Possible recurrent sepsis, resolving. continue antibiotics per ID. Dr Celena pritchard is following infection disease consultation. - Anemia of blood loss. Continue to monitor H&H, transfuse as needed. - Status post cardiopulmonary arrest on 12/09/2016 and 01/08/2017. Continue ventilatory support. - Anoxic encephalopathy. Continue Keppra. - Status post tracheostomy on 01/23/2017. - End-stage renal disease. Continue hemodialysis per nephrology. - Paroxysmal atrial fibrillation. Eliquis is currently held due to bleeding. - Diabetes mellitus type 2. Continue Lantus and NovoLog with sliding scale coverage with Accu-Cheks q. 4 hours. - Diabetic foot ulcer. Continue current wound care. - Osteomyelitis of the distal phalanx of the great left toe. Completed treatment for antibiotics. Continue sequential compression device for deep venous thrombosis prophylaxis and Protonix for peptic ulcer disease prophylaxis. Case management for alf facility placement and arrangement for hemodialysis. Further recommendations based on clinical course. Plan of care discussed with Dr. Heredia. Subjective 24 Hr Interval Summary Free Text/Dictation Had hemodialysis today. BP 104/52, Patient tolerated G-tube feeding well- staff. Constitutional: requiring IVF, requiring O2 Exam/Review of Systems Vital Signs Vitals Vital Signs Date Time Temp Pulse Resp B/P Pulse Ox O2 Delivery O2 Flow Rate FiO2 02/12/17 15:24 98.2 74 18 104/52 98 02/12/17 15:05 30 02/12/17 12:10 Mechanical Ventilator Intake and Output 02/11/17 02/11/17 02/12/17 15:00 23:00 07:00 Intake Total 500 ml 955 ml 1210 ml Output Total 3000 ml 200 ml Balance -2500 ml 755 ml 1210 ml Exam Constitutional: non-verbal Respiratory: clear to auscultation, normal air movement Cardiovascular: nl pulses, regular rate and rhythm Gastrointestinal: non-tender, soft Musculoskeletal: muscle weakness, other Neurological: nl mental status, nl speech Skin: other (decubs ) Results Result Diagram: 02/12/17 0625 02/12/17 0625 Results 24 hrs Laboratory Tests Test 02/11/17 17:56 02/11/17 19:57 02/12/17 00:50 02/12/17 05:13 Bedside Glucose 203 211 243 H 202 Test 02/12/17 06:25 02/12/17 12:10 White Blood Count 15.8 #H Red Blood Count 2.98 L Hemoglobin 8.6 L Hematocrit 26.9 L Mean Corpuscular Volume 90.3 Mean Corpuscular Hemoglobin 28.9 L Mean Corpuscular Hemoglobin Concent 32.0 Red Cell Distribution Width 14.3 Platelet Count 295 Mean Platelet Volume 10.0 Neutrophils % 80.1 H Lymphocytes % 10.8 L Monocytes % 6.2 Eosinophils % 0.3 Basophils % 0.2 Nucleated Red Blood Cells % 0.0 Neutrophils # 12.7 H Lymphocytes # 1.7 Monocytes # 1.0 H Eosinophils # 0.0 Basophils # 0.0 Nucleated Red Blood Cells # 0.0 Sodium Level 141 Potassium Level 4.1 Chloride Level 91 L Carbon Dioxide Level 31 Anion Gap 23 #H Blood Urea Nitrogen 51 H Creatinine 1.55 H Glucose Level 165 Calcium Level 9.2 Bedside Glucose 189 Medications Medications Current Medications Ondansetron HCl (Zofran Inj) 4 mg Q6H PRN IV NAUSEA AND/OR VOMITING Last administered on 12/13/16 01:13; Admin Dose 4 MG; Start 12/02/16 at 22:30 Miscellaneous Information 1 ea NOTE XX ; Start 12/02/16 at 23:00 Glucose (Glutose) 15 gm Q15M PRN PO DECREASED GLUCOSE; Start 12/02/16 at 23:00 Glucose (Glutose) 22.5 gm Q15M PRN PO DECREASED GLUCOSE; Start 12/02/16 at 23: 00 Dextrose (D50w Syringe) 25 ml Q15M PRN IV DECREASED GLUCOSE Last administered on 01/26/17 05:21; Admin Dose 25 ML; Start 12/02/16 at 23:00 Dextrose (D50w Syringe) 50 ml Q15M PRN IV DECREASED GLUCOSE Last administered on 01/23/17 04:58; Admin Dose 50 ML; Start 12/02/16 at 23:00 Glucagon (Glucagen) 1 mg Q15M PRN IM DECREASED GLUCOSE; Start 12/02/16 at 23:00 Glucose (Glutose) 15 gm Q15M PRN BUCCAL DECREASED GLUCOSE; Start 12/02/16 at 23 :00 Acetaminophen (Tylenol Supp) 650 mg Q6H PRN [place] ELEVATED TEMPERATURE Last administered on 01/13/17 20:32; Admin Dose 650 MG; Start 12/09/16 at 17:00 Hydralazine HCl (Apresoline) 10 mg Q6H PRN IV SBP>150mm hg Last administered on 12/19/16 08:50; Admin Dose 10 MG; Start 12/11/16 at 10:30 Morphine Sulfate (morphine) 2 mg Q2H PRN IV PAIN LEVEL 4-7; Start 12/13/16 at 10 :00 Collagenase (Santyl) 1 applic DAILY TOP Last administered on 02/12/17 10:48; Admin Dose 1 APPLIC; Start 01/04/17 at 09:00 Metoprolol Tartrate (Lopressor) 5 mg Q4 PRN IV FOR H.R>110; Start 01/12/17 at 17:30 Acetaminophen (Tylenol Liquid) 650 mg Q6H PRN NGT PAIN AND OR ELEVATED TEMP Last administered on 02/03/17 17:37; Admin Dose 650 MG; Start 01/13/17 at 23:30 Acetaminophen/ Hydrocodone Bitart ([place] (5/325)) 1 tab Q6H PRN NGT PAIN LEVEL 4-7; Start 01/13/17 at 23:30 Levetiracetam (Keppra Liquid) 1,000 mg DAILY NGT Last administered on 02/12/17 10:48; Admin Dose 1,000 MG; Start 01/14/17 at 09:00 Meclizine HCl (Antivert) 25 mg TID PRN NGT dizziness; Start 01/13/17 at 20:00 Zolpidem Tartrate (Ambien) 5 mg HS PRN NGT INSOMNIA; Start 01/13/17 at 20:00 Docusate Sodium (Colace Liquid Cup) 100 mg BID NGT Last administered on 10:45; Admin Dose 100 MG; Start 01/13/17 at 21:00 Metoprolol Tartrate (Lopressor) 12.5 mg BID NGT Last administered on 02/11/17 09:46; Admin Dose 12.5 MG; Start 01/24/17 at 21:00 Nystatin 5 ml 5 ml Q6 PO Last administered on 02/12/17 12:15; Admin Dose 5 ML; Start 01/31/17 at 12:00 Cefepime HCl (Maxipime 1gm/50 ml (Pmx)) 50 ml @ 100 mls/hr DAILY IVPB Last administered on 02/12/17 10:45; Admin Dose 100 MLS/HR; Start 02/02/17 at 11:00 Insulin Glargine (Lantus) 40 unit DAILY@20 SC Last administered on 02/11/17 21 :38; Admin Dose 40 UNIT; Start 02/04/17 at 20:00 Tobramycin TOBRAMYCIN PER PHARMACY NOTE XX ; Start 02/04/17 at 20:30 Caspofungin/ Sodium Chloride (Cancidas/NS) 250 ml @ 250 mls/hr Q24H IVPB Last administered on 02/11/17 22:17; Admin Dose 250 MLS/HR; Start 02/05/17 at 22:00 Lansoprazole (Prevacid) 30 mg DAILY@06 GTB Last administered on 02/12/17 05:15 ; Admin Dose 30 MG; Start 02/09/17 at 06:00 Insulin Aspart (Novolog Insulin Pen) NOVOLOG *MODERATE* ALGORI... Q6 SC Last administered on 02/12/17 12:17; Admin Dose 4 UNIT; Start 02/09/17 at 18:00 Amiodarone HCl (Cordarone) 200 mg Q12 NGT Last administered on 02/12/17 10:51; Admin Dose 200 MG; Start 02/10/17 at 21:00 Apixaban (Eliquis) 2.5 mg BID PO Last administered on 02/12/17 10:48; Admin Dose 2.5 MG; Start 02/11/17 at 21:00 YULIANA SIMMONS Feb 12, 2017 16:06
--- NOTE | 2017-02-12 18:32 | CONS ---
Date/Time of Note Date/Time of Note DATE: 02/12/17 TIME: 18:31 Consult Date/Type/Reason Admit Date/Time Dec 02, 2016 at 21:01 Initial Consult Date 12/08/16 Type of Consultation: pulm Ordering Provider: VIET PARKER MD Subjective No events. On MV Objective Vital Signs Date Time Temp Pulse Resp B/P Pulse Ox O2 Delivery O2 Flow Rate FiO2 02/12/17 17:05 77 20 99 30 02/12/17 15:24 98.2 104/52 02/12/17 12:10 Mechanical Ventilator Intake and Output 02/11/17 02/11/17 02/12/17 15:00 23:00 07:00 Intake Total 500 ml 955 ml 1210 ml Output Total 3000 ml 200 ml Balance -2500 ml 755 ml 1210 ml Exam HEENT: Neck supple; ++ JVD; no LAD; trach in place CVS: Irreg irreg, S1 and S2 CHEST: Bilateral rales ABD: Soft, NT, + BS EXT: No c/c + edema Results/Medications Result Diagram: 02/12/1725 02/12/17 0625 Results 24 hrs Laboratory Tests Test 02/11/17 19:57 02/12/17 00:50 02/12/17 05:13 02/12/17 06:25 Bedside Glucose 211 243 H 202 White Blood Count 15.8 #H Red Blood Count 2.98 L Hemoglobin 8.6 L Hematocrit 26.9 L Mean Corpuscular Volume 90.3 Mean Corpuscular Hemoglobin 28.9 L Mean Corpuscular Hemoglobin Concent 32.0 Red Cell Distribution Width 14.3 Platelet Count 295 Mean Platelet Volume 10.0 Neutrophils % 80.1 H Lymphocytes % 10.8 L Monocytes % 6.2 Eosinophils % 0.3 Basophils % 0.2 Nucleated Red Blood Cells % 0.0 Neutrophils # 12.7 H Lymphocytes # 1.7 Monocytes # 1.0 H Eosinophils # 0.0 Basophils # 0.0 Nucleated Red Blood Cells # 0.0 Sodium Level 141 Potassium Level 4.1 Chloride Level 91 L Carbon Dioxide Level 31 Anion Gap 23 #H Blood Urea Nitrogen 51 H Creatinine 1.55 H Glucose Level 165 Calcium Level 9.2 Test 02/12/17 12:10 02/12/17 17:43 Bedside Glucose 189 201 Medications Current Medications Ondansetron HCl (Zofran Inj) 4 mg Q6H PRN IV NAUSEA AND/OR VOMITING Last administered on 12/13/16 01:13; Admin Dose 4 MG; Start 12/02/16 at 22:30 Miscellaneous Information 1 ea NOTE XX ; Start 12/02/16 at 23:00 Glucose (Glutose) 15 gm Q15M PRN PO DECREASED GLUCOSE; Start 12/02/16 at 23:00 Glucose (Glutose) 22.5 gm Q15M PRN PO DECREASED GLUCOSE; Start 12/02/16 at 23: 00 Dextrose (D50w Syringe) 25 ml Q15M PRN IV DECREASED GLUCOSE Last administered on 01/26/17 05:21; Admin Dose 25 ML; Start 12/02/16 at 23:00 Dextrose (D50w Syringe) 50 ml Q15M PRN IV DECREASED GLUCOSE Last administered on 01/23/17 04:58; Admin Dose 50 ML; Start 12/02/16 at 23:00 Glucagon (Glucagen) 1 mg Q15M PRN IM DECREASED GLUCOSE; Start 12/02/16 at 23:00 Glucose (Glutose) 15 gm Q15M PRN BUCCAL DECREASED GLUCOSE; Start 12/02/16 at 23 :00 Acetaminophen (Tylenol Supp) 650 mg Q6H PRN [place] ELEVATED TEMPERATURE Last administered on 01/13/17 20:32; Admin Dose 650 MG; Start 12/09/16 at 17:00 Hydralazine HCl (Apresoline) 10 mg Q6H PRN IV SBP>150mm hg Last administered on 12/19/16 08:50; Admin Dose 10 MG; Start 12/11/16 at 10:30 Morphine Sulfate (morphine) 2 mg Q2H PRN IV PAIN LEVEL 4-7; Start 12/13/16 at 10 :00 Collagenase (Santyl) 1 applic DAILY TOP Last administered on 02/12/17 10:48; Admin Dose 1 APPLIC; Start 01/04/17 at 09:00 Metoprolol Tartrate (Lopressor) 5 mg Q4 PRN IV FOR H.R>110; Start 01/12/17 at 17:30 Acetaminophen (Tylenol Liquid) 650 mg Q6H PRN NGT PAIN AND OR ELEVATED TEMP Last administered on 02/03/17 17:37; Admin Dose 650 MG; Start 01/13/17 at 23:30 Acetaminophen/ Hydrocodone Bitart ([place] (5/325)) 1 tab Q6H PRN NGT PAIN LEVEL 4-7; Start 01/13/17 at 23:30 Levetiracetam (Keppra Liquid) 1,000 mg DAILY NGT Last administered on 02/12/17 10:48; Admin Dose 1,000 MG; Start 01/14/17 at 09:00 Meclizine HCl (Antivert) 25 mg TID PRN NGT dizziness; Start 01/13/17 at 20:00 Zolpidem Tartrate (Ambien) 5 mg HS PRN NGT INSOMNIA; Start 01/13/17 at 20:00 Docusate Sodium (Colace Liquid Cup) 100 mg BID NGT Last administered on 10:45; Admin Dose 100 MG; Start 01/13/17 at 21:00 Metoprolol Tartrate (Lopressor) 12.5 mg BID NGT Last administered on 02/11/17 09:46; Admin Dose 12.5 MG; Start 01/24/17 at 21:00 Nystatin 5 ml 5 ml Q6 PO Last administered on 02/12/17 17:56; Admin Dose 5 ML; Start 01/31/17 at 12:00 Cefepime HCl (Maxipime 1gm/50 ml (Pmx)) 50 ml @ 100 mls/hr DAILY IVPB Last administered on 02/12/17 10:45; Admin Dose 100 MLS/HR; Start 02/02/17 at 11:00 Insulin Glargine (Lantus) 40 unit DAILY@20 SC Last administered on 02/11/17 21 :38; Admin Dose 40 UNIT; Start 02/04/17 at 20:00 Tobramycin TOBRAMYCIN PER PHARMACY NOTE XX ; Start 02/04/17 at 20:30 Caspofungin/ Sodium Chloride (Cancidas/NS) 250 ml @ 250 mls/hr Q24H IVPB Last administered on 02/11/17 22:17; Admin Dose 250 MLS/HR; Start 02/05/17 at 22:00 Lansoprazole (Prevacid) 30 mg DAILY@06 GTB Last administered on 02/12/17 05:15 ; Admin Dose 30 MG; Start 02/09/17 at 06:00 Insulin Aspart (Novolog Insulin Pen) NOVOLOG *MODERATE* ALGORI... Q6 SC Last administered on 02/12/17 17:57; Admin Dose 4 UNIT; Start 02/09/17 at 18:00 Amiodarone HCl (Cordarone) 200 mg Q12 NGT Last administered on 02/12/17 10:51; Admin Dose 200 MG; Start 02/10/17 at 21:00 Apixaban (Eliquis) 2.5 mg BID PO Last administered on 02/12/17 10:48; Admin Dose 2.5 MG; Start 02/11/17 at 21:00 Assessment/Plan Additional Assessment/Plan IMP: 1. s/p Cardiopulmonary Arrest: Likely a respiratory event leading to the asystolic event 2. CHF/Volume overload 3. Respiratory Failure/Vent 4. Anoxic Brain Encephalopathy 5. s/p Fungemia 6. CKD 7. Anemia RECS: 1. Vent support 2. CPT/BDs JACOB SANTIZO MD Feb 12, 2017 18:32
[2017-02-12] MEDS: INSULIN GLARGINE [LANtus] 3 ML PEN SC SCH (21:56)
[2017-02-12] MEDS: CASPOFUNGIN 50 MG in SOD CHLORIDE 0.9% 250 ML IVPB SCH (22:00)
--- NOTE | 2017-02-12 22:48 | CONS ---
Date/Time of Note Date/Time of Note DATE: 02/12/17 TIME: 22:47 Assessment/Plan Assessment/Plan Additional Assessment/Plan -S/p cardiopulmonary arrest on 12/09/2016 and on 01/08/2017 - 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 Blood cultures from HD catheter on 12/13/2016 are negative to date. 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 MRI on 12/06/2016 and bone scan on showed early OM of the distal phalanx of the left great toe and left fourth proximal phalanx. superficial swab grew inna only - s/p right pleural effusion s/p thoracentesis with .9L removed on 12/16/2016 - severe , EF 40-45% per TTE 12/17/16 - DM - Hgb A1c 8.7% - HTN associated with DM Tracheostomy site bleeding Plan: s/p HD today, next HD will be on MWF s/p Tracheostomy, on ventilator pt will need HD palcement at a unit where they can do a HD for pt with tracheostomy and PEG tube placemen t- caser has been instructed to set up [facility] pt has severe , very labile BP sometimes with HD will continue to follow up for HD need Consultation Date/Type/Reason Admit Date/Time Dec 02, 2016 at 21:01 Initial Consult Date Type of Consultation: NEPHROLOGY Referring Provider: VIET PARKER MD 24 HR Interval Summary Free Text/Dictation s/p HD today, afebrile, BP stable Exam/Review of Systems Vital Signs Vitals Vital Signs Date Time Temp Pulse Resp B/P Pulse Ox O2 Delivery O2 Flow Rate FiO2 02/12/17 21:45 76 20 99 30 02/12/17 19:59 98.6 108/53 02/12/17 12:10 Mechanical Ventilator Intake and Output 02/11/17 02/11/17 02/12/17 15:00 23:00 07:00 Intake Total 500 ml 955 ml 1210 ml Output Total 3000 ml 200 ml Balance -2500 ml 755 ml 1210 ml Results Result Diagram: 02/12/17 0625 02/12/17 0625 Results 24 hrs Laboratory Tests Test 02/12/17 00:50 02/12/17 05:13 02/12/17 06:25 02/12/17 12:10 Bedside Glucose 243 H 202 189 White Blood Count 15.8 #H Red Blood Count 2.98 L Hemoglobin 8.6 L Hematocrit 26.9 L Mean Corpuscular Volume 90.3 Mean Corpuscular Hemoglobin 28.9 L Mean Corpuscular Hemoglobin Concent 32.0 Red Cell Distribution Width 14.3 Platelet Count 295 Mean Platelet Volume 10.0 Neutrophils % 80.1 H Lymphocytes % 10.8 L Monocytes % 6.2 Eosinophils % 0.3 Basophils % 0.2 Nucleated Red Blood Cells % 0.0 Neutrophils # 12.7 H Lymphocytes # 1.7 Monocytes # 1.0 H Eosinophils # 0.0 Basophils # 0.0 Nucleated Red Blood Cells # 0.0 Sodium Level 141 Potassium Level 4.1 Chloride Level 91 L Carbon Dioxide Level 31 Anion Gap 23 #H Blood Urea Nitrogen 51 H Creatinine 1.55 H Glucose Level 165 Calcium Level 9.2 Test 02/12/17 17:43 02/12/17 21:26 Bedside Glucose 201 205 Medications Medications Current Medications Ondansetron HCl (Zofran Inj) 4 mg Q6H PRN IV NAUSEA AND/OR VOMITING Last administered on 12/13/16 01:13; Admin Dose 4 MG; Start 12/02/16 at 22:30 Miscellaneous Information 1 ea NOTE XX ; Start 12/02/16 at 23:00 Glucose (Glutose) 15 gm Q15M PRN PO DECREASED GLUCOSE; Start 12/02/16 at 23:00 Glucose (Glutose) 22.5 gm Q15M PRN PO DECREASED GLUCOSE; Start 12/02/16 at 23: 00 Dextrose (D50w Syringe) 25 ml Q15M PRN IV DECREASED GLUCOSE Last administered on 01/26/17 05:21; Admin Dose 25 ML; Start 12/02/16 at 23:00 Dextrose (D50w Syringe) 50 ml Q15M PRN IV DECREASED GLUCOSE Last administered on 01/23/17 04:58; Admin Dose 50 ML; Start 12/02/16 at 23:00 Glucagon (Glucagen) 1 mg Q15M PRN IM DECREASED GLUCOSE; Start 12/02/16 at 23:00 Glucose (Glutose) 15 gm Q15M PRN BUCCAL DECREASED GLUCOSE; Start 12/02/16 at 23 :00 Acetaminophen (Tylenol Supp) [address] ELEVATED TEMPERATURE Last administered on 01/13/17 20:32; Admin Dose 650 MG; Start 12/09/16 at 17:00 Hydralazine HCl (Apresoline) 10 mg Q6H PRN IV SBP>150mm hg Last administered on 12/19/16 08:50; Admin Dose 10 MG; Start 12/11/16 at 10:30 Morphine Sulfate (morphine) 2 mg Q2H PRN IV PAIN LEVEL 4-7; Start 12/13/16 at 10 :00 Collagenase (Santyl) 1 applic DAILY TOP Last administered on 02/12/17 10:48; Admin Dose 1 APPLIC; Start 01/04/17 at 09:00 Metoprolol Tartrate (Lopressor) 5 mg Q4 PRN IV FOR H.R>110; Start 01/12/17 at 17:30 Acetaminophen (Tylenol Liquid) 650 mg Q6H PRN NGT PAIN AND OR ELEVATED TEMP Last administered on 02/03/17 17:37; Admin Dose 650 MG; Start 01/13/17 at 23:30 Acetaminophen/ Hydrocodone Bitart ([place] (5/325)) 1 tab Q6H PRN NGT PAIN LEVEL 4-7; Start 01/13/17 at 23:30 Levetiracetam (Keppra Liquid) 1,000 mg DAILY NGT Last administered on 02/12/17 10:48; Admin Dose 1,000 MG; Start 01/14/17 at 09:00 Meclizine HCl (Antivert) 25 mg TID PRN NGT dizziness; Start 01/13/17 at 20:00 Zolpidem Tartrate (Ambien) 5 mg HS PRN NGT INSOMNIA; Start 01/13/17 at 20:00 Docusate Sodium (Colace Liquid Cup) 100 mg BID NGT Last administered on 21:57; Admin Dose 100 MG; Start 01/13/17 at 21:00 Metoprolol Tartrate (Lopressor) 12.5 mg BID NGT Last administered on 02/11/17 09:46; Admin Dose 12.5 MG; Start 01/24/17 at 21:00 Nystatin 5 ml 5 ml Q6 PO Last administered on 02/12/17 17:56; Admin Dose 5 ML; Start 01/31/17 at 12:00 Cefepime HCl (Maxipime 1gm/50 ml (Pmx)) 50 ml @ 100 mls/hr DAILY IVPB Last administered on 02/12/17 10:45; Admin Dose 100 MLS/HR; Start 02/02/17 at 11:00 Insulin Glargine (Lantus) 40 unit DAILY@20 SC Last administered on 02/12/17 21: 56; Admin Dose 40 UNIT; Start 02/04/17 at 20:00 Tobramycin TOBRAMYCIN PER PHARMACY NOTE XX ; Start 02/04/17 at 20:30 Caspofungin/ Sodium Chloride (Cancidas/NS) 250 ml @ 250 mls/hr Q24H IVPB Last administered on 02/12/17 22:00; Admin Dose 250 MLS/HR; Start 02/05/17 at 22:00 Lansoprazole (Prevacid) 30 mg DAILY@06 GTB Last administered on 02/12/17 05:15 ; Admin Dose 30 MG; Start 02/09/17 at 06:00 Insulin Aspart (Novolog Insulin Pen) NOVOLOG *MODERATE* ALGORI... Q6 SC Last administered on 02/12/17 17:57; Admin Dose 4 UNIT; Start 02/09/17 at 18:00 Amiodarone HCl (Cordarone) 200 mg Q12 NGT Last administered on 02/12/17 22:02; Admin Dose 200 MG; Start 02/10/17 at 21:00 Apixaban (Eliquis) 2.5 mg BID PO Last administered on 02/12/17 21:57; Admin Dose 2.5 MG; Start 02/11/17 at 21:00 TASHIA MCGARRY MD Feb 12, 2017 22:48
[2017-02-13] VITALS (23 sets, daily range): BP systolic 102–130; BP diastolic 53–63; PULSE 66–75; RESP 16–25
[2017-02-13] MEDS: NYSTATIN SUSP 5 ML CUP PO SCH ×4 (00:43→17:38)
[2017-02-13] MEDS: INSULIN ASPART [NOVOLOG] 3 ML PEN SC SCH ×4 (00:45→17:50)
[2017-02-13] MEDS: ALBUTEROL 18 GM INHALER INH SCH ×4 (01:08→19:32)
[2017-02-13] MEDS: LANSOPRAZOLE 30 MG CAP GTB SCH (06:03)
[2017-02-13 06:44] LABS: BASOPHILS % 0.1 % (0.0-2.0); EOSINOPHILS # 0.1 10^3/ul (0.0-0.5); EOSINOPHILS % 0.4 % (0.0-7.0); HEMATOCRIT 25.4 % (42.0-52.0); HEMOGLOBIN 8.1 g/dl (14.0-18.0); LYMPHOCYTES # 1.3 10^3/ul (0.8-2.9); MEAN CORPUSCULAR HEMOGLOBIN 28.7 pg (29.0-33.0); MEAN CORPUSCULAR HGB CONC 31.9 g/dl (32.0-37.0); MEAN CORPUSCULAR VOLUME 90.1 fl (82.0-101.0); MEAN PLATELET VOLUME 9.9 fl (7.4-10.4); MONOCYTE # 0.8 10^3/ul (0.3-0.9); MONOCYTES % 5.2 % (0.0-11.0); NEUTROPHIL # 13.1 10^3/ul (1.6-7.5); NEUTROPHILS % 84.1 % (39.0-77.0); PLATELET COUNT 268 10^3/UL (140-415); RED BLOOD COUNT 2.82 10^6/ul (4.70-6.10); RED CELL DISTRIBUTION WIDTH 14.5 % (11.5-14.5); WHITE BLOOD COUNT 15.6 10^3/ul (4.8-10.8)
[2017-02-13 07:10] LABS: CREATININE 1.95 mg/dl (0.61-1.24); POTASSIUM 3.9 mmol/L (3.5-5.1)
[2017-02-13 07:12] LABS: ADD SCAN DIFF NO
[2017-02-13] MEDS: CEFEPIME 1GM/50 ML (PMX) 50 ML IVPB SCH (08:29)
[2017-02-13] MEDS: DOCUSATE SODIUM 10 MG/ML (10ML CUP) NGT SCH ×2 (08:29→21:50)
[2017-02-13] MEDS: AMIODARONE 200 MG TAB NGT SCH ×2 (08:30→21:52)
[2017-02-13] MEDS: APIXABAN 5 MG TABLET PO SCH ×2 (08:30→21:53)
[2017-02-13] MEDS: COLLAGENASE 30 GM TUBE TOP SCH (08:30)
[2017-02-13] MEDS: METOPROLOL 25 MG TAB NGT SCH ×2 (08:30→21:00)
[2017-02-13] MEDS: LEVETIRACETAM (100 MG/ML) 5ML CUP NGT SCH (08:30)
--- NOTE | 2017-02-13 11:51 | CONS ---
Date/Time of Note Date/Time of Note DATE: 02/13/17 TIME: 11:50 Assessment/Plan Assessment/Plan Chief Complaint/Hosp Course -- recurrent cardiopulmonary arrest on 12/09/2016 and on 01/08/2017 possible recurrent sepsis due to pneumonia - recurrent cardiopulmonary arrest on 12/09/2016 and on 01/08/2017 - s/p sepsis due to possible tracheobronchitis/pneumonia - recurrent pneumonia due to pseudomonas - thrush, refractory to nystatin - funguria - bleeding from trach site - s/p recurrent sepsis - 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 Blood cultures from HD catheter on 12/13/2016 are negative to date. 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 MRI on 12/06/2016 and bone scan on showed early OM of the distal phalanx of the left great toe and left fourth proximal phalanx. superficial swab grew inna only. At present, no e/o persistent infection - recurrent pleural effusion - s/p right pleural effusion s/p thoracentesis with .9L removed on 12/16/2016; ( Note: there is no pleural fluid cx since orders were placed after Right thoracentesis, and Left thoracentesis was not performed on 12/17/16 d/t insufficient fluid) - ARANZA on CKD that progressed to ESRD and started on HD from 12/09/2016 - oliguria - improved - A fib -> PAF - small nonreversible perfusion abnormality in the inferoapical and inferior carver; EF 36% per Lexiscan 12/24/2016 - severe , EF 40-45% per TTE 12/17/16 - DM - Hgb A1c 8.7% - HTN associated with DM - acute encephalopathy with anoxic brain injury - unstageable decubitus ulcer of coccyx, no evidence of infection - dysphagia s/p G-tube placement 02/08/2017 NOTE: Pt completed 6 weeks (12/03/2016-01/15/2017) of antibiotics to treat early OM of the distal phalanx of the left great toe and left fourth proximal phalanx ; s/p pip/tazo 12/03/16-01/08/17; linezolid 01/08/17-01/20/17; caspofungin 01/12/17-01/21/17, restarted recommendations: - f/u studies - monitor wbc - check procalc - continue renally dosed cefepime (restarted on 02/02/2017-) and IV tobramycin (-) for pseudomonas - continue empiric caspofungin (02/04/2017-) - continue nystatin for thrush - wound care of the coccyx and upper back Problems: Consultation Date/Type/Reason Admit Date/Time Dec 02, 2016 at 21:01 Type of Consultation: id Referring Provider: VIET PARKER MD Exam/Review of Systems Vital Signs Vitals Vital Signs Date Time Temp Pulse Resp B/P Pulse Ox O2 Delivery O2 Flow Rate FiO2 02/13/17 11:26 98.1 70 18 114/53 99 02/13/17 10:00 40 02/12/17 12:10 Mechanical Ventilator Intake and Output 02/12/17 02/12/17 02/13/17 15:00 23:00 07:00 Intake Total 805 ml 810 ml 950 ml Output Total 2000 ml 30 ml 150 ml Balance -1195 ml 780 ml 800 ml Results Result Diagram: 02/13/17 0545 02/13/17 0545 Results 24 hrs Laboratory Tests Test 02/12/17 12:10 02/12/17 17:43 02/12/17 21:26 02/13/17 00:40 Bedside Glucose 189 201 205 203 Test 02/13/17 05:45 02/13/17 06:04 White Blood Count 15.6 H Red Blood Count 2.82 L Hemoglobin 8.1 L Hematocrit 25.4 L Mean Corpuscular Volume 90.1 Mean Corpuscular Hemoglobin 28.7 L Mean Corpuscular Hemoglobin Concent 31.9 L Red Cell Distribution Width 14.5 Platelet Count 268 Mean Platelet Volume 9.9 Neutrophils % 84.1 H Lymphocytes % 8.0 L Monocytes % 5.2 Eosinophils % 0.4 Basophils % 0.1 Nucleated Red Blood Cells % 0.0 Neutrophils # 13.1 H Lymphocytes # 1.3 Monocytes # 0.8 Eosinophils # 0.1 Basophils # 0.0 Nucleated Red Blood Cells # 0.0 Sodium Level 139 Potassium Level 3.9 Chloride Level 89 L Carbon Dioxide Level 32 H Anion Gap 22 H Blood Urea Nitrogen 52 H Creatinine 1.95 H Glucose Level 105 # Calcium Level 9.0 Bedside Glucose 103 Medications Medications Current Medications Ondansetron HCl (Zofran Inj) 4 mg Q6H PRN IV NAUSEA AND/OR VOMITING Last administered on 12/13/16 01:13; Admin Dose 4 MG; Start 12/02/16 at 22:30 Miscellaneous Information 1 ea NOTE XX ; Start 12/02/16 at 23:00 Glucose (Glutose) 15 gm Q15M PRN PO DECREASED GLUCOSE; Start 12/02/16 at 23:00 Glucose (Glutose) 22.5 gm Q15M PRN PO DECREASED GLUCOSE; Start 12/02/16 at 23: 00 Dextrose (D50w Syringe) 25 ml Q15M PRN IV DECREASED GLUCOSE Last administered on 01/26/17 05:21; Admin Dose 25 ML; Start 12/02/16 at 23:00 Dextrose (D50w Syringe) 50 ml Q15M PRN IV DECREASED GLUCOSE Last administered on 01/23/17 04:58; Admin Dose 50 ML; Start 12/02/16 at 23:00 Glucagon (Glucagen) 1 mg Q15M PRN IM DECREASED GLUCOSE; Start 12/02/16 at 23:00 Glucose (Glutose) 15 gm Q15M PRN BUCCAL DECREASED GLUCOSE; Start 12/02/16 at 23 :00 Acetaminophen (Tylenol Supp) 650 mg Q6H PRN [place] ELEVATED TEMPERATURE Last administered on 01/13/17 20:32; Admin Dose 650 MG; Start 12/09/16 at 17:00 Hydralazine HCl (Apresoline) 10 mg Q6H PRN IV SBP>150mm hg Last administered on 12/19/16 08:50; Admin Dose 10 MG; Start 12/11/16 at 10:30 Morphine Sulfate (morphine) 2 mg Q2H PRN IV PAIN LEVEL 4-7; Start 12/13/16 at 10 :00 Collagenase (Santyl) 1 applic DAILY TOP Last administered on 02/13/17 08:30; Admin Dose 1 APPLIC; Start 01/04/17 at 09:00 Metoprolol Tartrate (Lopressor) 5 mg Q4 PRN IV FOR H.R>110; Start 01/12/17 at 17:30 Acetaminophen (Tylenol Liquid) 650 mg Q6H PRN NGT PAIN AND [place] ELEVATED TEMP Last administered on 02/03/17 17:37; Admin Dose 650 MG; Start 01/13/17 at 23:30 Acetaminophen/ Hydrocodone Bitart ([place] (5/325)) 1 tab Q6H PRN NGT PAIN LEVEL 4-7; Start 01/13/17 at 23:30 Levetiracetam (Keppra Liquid) 1,000 mg DAILY NGT Last administered on 02/13/17 08:30; Admin Dose 1,000 MG; Start 01/14/17 at 09:00 Meclizine HCl (Antivert) 25 mg TID PRN NGT dizziness; Start 01/13/17 at 20:00 Zolpidem Tartrate (Ambien) 5 mg HS PRN NGT INSOMNIA; Start 01/13/17 at 20:00 Docusate Sodium (Colace Liquid Cup) 100 mg BID NGT Last administered on 08:29; Admin Dose 100 MG; Start 01/13/17 at 21:00 Metoprolol Tartrate (Lopressor) 12.5 mg BID NGT Last administered on 02/13/17 08:30; Admin Dose 12.5 MG; Start 01/24/17 at 21:00 Nystatin 5 ml 5 ml Q6 PO Last administered on 02/13/17 06:03; Admin Dose 5 ML; Start 01/31/17 at 12:00 Cefepime HCl (Maxipime 1gm/50 ml (Pmx)) 50 ml @ 100 mls/hr DAILY IVPB Last administered on 02/13/17 08:29; Admin Dose 100 MLS/HR; Start 02/02/17 at 11:00 Insulin Glargine (Lantus) 40 unit DAILY@20 SC Last administered on 02/12/17 21: 56; Admin Dose 40 UNIT; Start 02/04/17 at 20:00 Tobramycin TOBRAMYCIN PER PHARMACY NOTE XX ; Start 02/04/17 at 20:30 Caspofungin/ Sodium Chloride (Cancidas/NS) 250 ml @ 250 mls/hr Q24H IVPB Last administered on 02/12/17 22:00; Admin Dose 250 MLS/HR; Start 02/05/17 at 22:00 Lansoprazole (Prevacid) 30 mg DAILY@06 GTB Last administered on 02/13/17 06:03 ; Admin Dose 30 MG; Start 02/09/17 at 06:00 Insulin Aspart (Novolog Insulin Pen) NOVOLOG *MODERATE* ALGORI... Q6 SC Last administered on 02/13/17 00:45; Admin Dose 4 UNIT; Start 02/09/17 at 18:00 Amiodarone HCl (Cordarone) 200 mg Q12 NGT Last administered on 02/13/17 08:30; Admin Dose 200 MG; Start 02/10/17 at 21:00 Apixaban (Eliquis) 2.5 mg BID PO Last administered on 02/13/17 08:30; Admin Dose 2.5 MG; Start 02/11/17 at 21:00 NIKHIL RAM MD Feb 13, 2017 11:51
--- NOTE | 2017-02-13 13:33 | CONS ---
Date/Time of Note Date/Time of Note DATE: 02/13/17 TIME: 13:31 Assessment/Plan Assessment/Plan Additional Assessment/Plan -S/p cardiopulmonary arrest on 12/09/2016 and on 01/08/2017 - 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 Blood cultures from HD catheter on 12/13/2016 are negative to date. 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 MRI on 12/06/2016 and bone scan on showed early OM of the distal phalanx of the left great toe and left fourth proximal phalanx. superficial swab grew inna only - s/p right pleural effusion s/p thoracentesis with .9L removed on 12/16/2016 - severe , EF 40-45% per TTE 12/17/16 - DM - Hgb A1c 8.7% - HTN associated with DM Tracheostomy site bleeding Plan: s/p HD yesterday next HD will be on MWF s/p Tracheostomy, on ventilator pt will need HD palcement at a unit where they can do a HD for pt with tracheostomy and PEG tube placemen t- bilingual patient support caseworker has been instructed to set up [facility] pt has severe , very labile BP sometimes with HD will continue to follow up for HD need Consultation Date/Type/Reason Admit Date/Time Dec 02, 2016 at 21:01 Initial Consult Date Type of Consultation: NEPHROLOGY Referring Provider: VIET PARKER MD 24 HR Interval Summary Free Text/Dictation no events, S/p HD yesterday, BP stable Exam/Review of Systems Vital Signs Vitals Vital Signs Date Time Temp Pulse Resp B/P Pulse Ox O2 Delivery O2 Flow Rate FiO2 02/13/17 12:53 72 02/13/17 11:26 98.1 18 114/53 99 02/13/17 11:15 30 02/12/17 12:10 Mechanical Ventilator Intake and Output 02/12/17 02/12/17 02/13/17 15:00 23:00 07:00 Intake Total 805 ml 810 ml 950 ml Output Total 2000 ml 30 ml 150 ml Balance -1195 ml 780 ml 800 ml Exam Constitutional: frail, non-verbal Neck: + tracheostomy Respiratory: crackles/rales Cardiovascular: nl pulses, regular rate and rhythm Gastrointestinal: non-tender, soft Musculoskeletal: nl extremities to inspection Extremities: No edema Neurological: confused, lethargic Skin: other (unstageable ulcer on coccyx) Results Result Diagram: 02/13/17 0545 02/13/17 0545 Results 24 hrs Laboratory Tests Test 02/12/17 17:43 02/12/17 21:26 02/13/17 00:40 02/13/17 05:45 Bedside Glucose 201 205 203 White Blood Count 15.6 H Red Blood Count 2.82 L Hemoglobin 8.1 L Hematocrit 25.4 L Mean Corpuscular Volume 90.1 Mean Corpuscular Hemoglobin 28.7 L Mean Corpuscular Hemoglobin Concent 31.9 L Red Cell Distribution Width 14.5 Platelet Count 268 Mean Platelet Volume 9.9 Neutrophils % 84.1 H Lymphocytes % 8.0 L Monocytes % 5.2 Eosinophils % 0.4 Basophils % 0.1 Nucleated Red Blood Cells % 0.0 Neutrophils # 13.1 H Lymphocytes # 1.3 Monocytes # 0.8 Eosinophils # 0.1 Basophils # 0.0 Nucleated Red Blood Cells # 0.0 Sodium Level 139 Potassium Level 3.9 Chloride Level 89 L Carbon Dioxide Level 32 H Anion Gap 22 H Blood Urea Nitrogen 52 H Creatinine 1.95 H Glucose Level 105 # Calcium Level 9.0 Test 02/13/17 06:04 02/13/17 12:25 Bedside Glucose 103 177 Medications Medications Current Medications Ondansetron HCl (Zofran Inj) 4 mg Q6H PRN IV NAUSEA AND/OR VOMITING Last administered on 12/13/16t 01:13; Admin Dose 4 MG; Start 12/02/16 at 22:30 Miscellaneous Information 1 ea NOTE XX ; Start 12/02/16 at 23:00 Glucose (Glutose) 15 gm Q15M PRN PO DECREASED GLUCOSE; Start 12/02/16 at 23:00 Glucose (Glutose) 22.5 gm Q15M PRN PO DECREASED GLUCOSE; Start 12/02/16 at 23: 00 Dextrose (D50w Syringe) 25 ml Q15M PRN IV DECREASED GLUCOSE Last administered on 01/26/17 05:21; Admin Dose 25 ML; Start 12/02/16 at 23:00 Dextrose (D50w Syringe) 50 ml Q15M PRN IV DECREASED GLUCOSE Last administered on 01/23/17 04:58; Admin Dose 50 ML; Start 12/02/16 at 23:00 Glucagon (Glucagen) 1 mg Q15M PRN IM DECREASED GLUCOSE; Start 12/02/16 at 23:00 Glucose (Glutose) 15 gm Q15M PRN BUCCAL DECREASED GLUCOSE; Start 12/02/16 at 23 :00 Acetaminophen (Tylenol Supp) 650 mg Q6H PRN [place] ELEVATED TEMPERATURE Last administered on 01/13/17 20:32; Admin Dose 650 MG; Start 12/09/16 at 17:00 Hydralazine HCl (Apresoline) 10 mg Q6H PRN IV SBP>150mm hg Last administered on 12/19/16 08:50; Admin Dose 10 MG; Start 12/11/16 at 10:30 Morphine Sulfate (morphine) 2 mg Q2H PRN IV PAIN LEVEL 4-7; Start 12/13/16 at 10 :00 Collagenase (Santyl) 1 applic DAILY TOP Last administered on 02/13/17 08:30; Admin Dose 1 APPLIC; Start 01/04/17 at 09:00 Metoprolol Tartrate (Lopressor) 5 mg Q4 PRN IV FOR H.R>110; Start 01/12/17 at 17:30 Acetaminophen (Tylenol Liquid) 650 mg Q6H PRN NGT PAIN AND OR ELEVATED TEMP Last administered on 02/03/17 17:37; Admin Dose 650 MG; Start 01/13/17 at 23:30 Acetaminophen/ Hydrocodone Bitart ([place] (5/325)) 1 tab Q6H PRN NGT PAIN LEVEL 4-7; Start 01/13/17 at 23:30 Levetiracetam (Keppra Liquid) 1,000 mg DAILY NGT Last administered on 02/13/17 08:30; Admin Dose 1,000 MG; Start 01/14/17 at 09:00 Meclizine HCl (Antivert) 25 mg TID PRN NGT dizziness; Start 01/13/17 at 20:00 Zolpidem Tartrate (Ambien) 5 mg HS PRN NGT INSOMNIA; Start 01/13/17 at 20:00 Docusate Sodium (Colace Liquid Cup) 100 mg BID NGT Last administered on 08:29; Admin Dose 100 MG; Start 01/13/17 at 21:00 Metoprolol Tartrate (Lopressor) 12.5 mg BID NGT Last administered on 02/13/17 08:30; Admin Dose 12.5 MG; Start 01/24/17 at 21:00 Nystatin 5 ml 5 ml Q6 PO Last administered on 02/13/17 12:26; Admin Dose 5 ML; Start 01/31/17 at 12:00 Cefepime HCl (Maxipime 1gm/50 ml (Pmx)) 50 ml @ 100 mls/hr DAILY IVPB Last administered on 02/13/17 08:29; Admin Dose 100 MLS/HR; Start 02/02/17 at 11:00 Insulin Glargine (Lantus) 40 unit DAILY@20 SC Last administered on 02/12/17 21: 56; Admin Dose 40 UNIT; Start 02/04/17 at 20:00 Tobramycin TOBRAMYCIN PER PHARMACY NOTE XX ; Start 02/04/17 at 20:30 Caspofungin/ Sodium Chloride (Cancidas/NS) 250 ml @ 250 mls/hr Q24H IVPB Last administered on 02/12/17 22:00; Admin Dose 250 MLS/HR; Start 02/05/17 at 22:00 Lansoprazole (Prevacid) 30 mg DAILY@06 GTB Last administered on 02/13/17 06:03 ; Admin Dose 30 MG; Start 02/09/17 at 06:00 Insulin Aspart (Novolog Insulin Pen) NOVOLOG *MODERATE* ALGORI... Q6 SC Last administered on 02/13/17 12:30; Admin Dose 2 UNIT; Start 02/09/17 at 18:00 Amiodarone HCl (Cordarone) 200 mg Q12 NGT Last administered on 02/13/17 08:30; Admin Dose 200 MG; Start 02/10/17 at 21:00 Apixaban (Eliquis) 2.5 mg BID PO Last administered on 02/13/17t 08:30; Admin Dose 2.5 MG; Start 02/11/17 at 21:00 TASHIA MCGARRY MD Feb 13, 2017 13:33
--- NOTE | 2017-02-13 13:48 | CONS ---
Date/Time of Note Date/Time of Note DATE: 02/13/17 TIME: 13:47 Consult Date/Type/Reason Admit Date/Time Dec 02, 2016 at 21:01 Initial Consult Date 12/08/16 Type of Consultation: Pulm Ordering Provider: VIET PARKER MD Subjective No events on [facility] ventilation. Objective Vital Signs Date Time Temp Pulse Resp B/P Pulse Ox O2 Delivery O2 Flow Rate FiO2 02/13/17 12:53 72 02/13/17 11:26 98.1 18 114/53 99 02/13/17 11:15 30 02/12/17 12:10 Mechanical Ventilator Intake and Output 02/12/17 02/12/17 02/13/17 15:00 23:00 07:00 Intake Total 805 ml 810 ml 950 ml Output Total 2000 ml 30 ml 150 ml Balance -1195 ml 780 ml 800 ml Exam HEENT: Neck supple; ++ JVD; no LAD; trach in place CVS: Irreg irreg, S1 and S2 CHEST: Bilateral rales ABD: Soft, NT, + BS EXT: No c/c + edema Results/Medications Result Diagram: 02/13/17 0545 02/13/17 0545 Results 24 hrs Laboratory Tests Test 02/12/17 17:43 02/12/17 21:26 02/13/17 00:40 02/13/17 05:45 Bedside Glucose 201 205 203 White Blood Count 15.6 H Red Blood Count 2.82 L Hemoglobin 8.1 L Hematocrit 25.4 L Mean Corpuscular Volume 90.1 Mean Corpuscular Hemoglobin 28.7 L Mean Corpuscular Hemoglobin Concent 31.9 L Red Cell Distribution Width 14.5 Platelet Count 268 Mean Platelet Volume 9.9 Neutrophils % 84.1 H Lymphocytes % 8.0 L Monocytes % 5.2 Eosinophils % 0.4 Basophils % 0.1 Nucleated Red Blood Cells % 0.0 Neutrophils # 13.1 H Lymphocytes # 1.3 Monocytes # 0.8 Eosinophils # 0.1 Basophils # 0.0 Nucleated Red Blood Cells # 0.0 Sodium Level 139 Potassium Level 3.9 Chloride Level 89 L Carbon Dioxide Level 32 H Anion Gap 22 H Blood Urea Nitrogen 52 H Creatinine 1.95 H Glucose Level 105 # Calcium Level 9.0 Test 02/13/17 06:04 02/13/17 12:25 Bedside Glucose 103 177 Medications Current Medications Ondansetron HCl (Zofran Inj) 4 mg Q6H PRN IV NAUSEA AND/OR VOMITING Last administered on 12/13/16 01:13; Admin Dose 4 MG; Start 12/02/16 at 22:30 Miscellaneous Information 1 ea NOTE XX ; Start 12/02/16 at 23:00 Glucose (Glutose) 15 gm Q15M PRN PO DECREASED GLUCOSE; Start 12/02/16 at 23:00 Glucose (Glutose) 22.5 gm Q15M PRN PO DECREASED GLUCOSE; Start 12/02/16 at 23: 00 Dextrose (D50w Syringe) 25 ml Q15M PRN IV DECREASED GLUCOSE Last administered on 01/26/17 05:21; Admin Dose 25 ML; Start 12/02/16 at 23:00 Dextrose (D50w Syringe) 50 ml Q15M PRN IV DECREASED GLUCOSE Last administered on 01/23/17 04:58; Admin Dose 50 ML; Start 12/02/16 at 23:00 Glucagon (Glucagen) 1 mg Q15M PRN IM DECREASED GLUCOSE; Start 12/02/16 at 23:00 Glucose (Glutose) 15 gm Q15M PRN BUCCAL DECREASED GLUCOSE; Start 12/02/16 at 23 :00 Acetaminophen (Tylenol Supp) 650 mg Q6H PRN [place] ELEVATED TEMPERATURE Last administered on 01/13/17 20:32; Admin Dose 650 MG; Start 12/09/16 at 17:00 Hydralazine HCl (Apresoline) 10 mg Q6H PRN IV SBP>150mm hg Last administered on 12/19/16 08:50; Admin Dose 10 MG; Start 12/11/16 at 10:30 Morphine Sulfate (morphine) 2 mg Q2H PRN IV PAIN LEVEL 4-7; Start 12/13/16 at 10 :00 Collagenase (Santyl) 1 applic DAILY TOP Last administered on 02/13/17 08:30; Admin Dose 1 APPLIC; Start 01/04/17 at 09:00 Metoprolol Tartrate (Lopressor) 5 mg Q4 PRN IV FOR H.R>110; Start 01/12/17 at 17:30 Acetaminophen (Tylenol Liquid) 650 mg Q6H PRN NGT PAIN AND OR ELEVATED TEMP Last administered on 02/03/17 17:37; Admin Dose 650 MG; Start 01/13/17 at 23:30 Acetaminophen/ Hydrocodone Bitart ([place] (5/325)) 1 tab Q6H PRN NGT PAIN LEVEL 4-7; Start 01/13/17 at 23:30 Levetiracetam (Keppra Liquid) 1,000 mg DAILY NGT Last administered on 02/13/17 08:30; Admin Dose 1,000 MG; Start 01/14/17 at 09:00 Meclizine HCl (Antivert) 25 mg TID PRN NGT dizziness; Start 01/13/17 at 20:00 Zolpidem Tartrate (Ambien) 5 mg HS PRN NGT INSOMNIA; Start 01/13/17 at 20:00 Docusate Sodium (Colace Liquid Cup) 100 mg BID NGT Last administered on 08:29; Admin Dose 100 MG; Start 01/13/17 at 21:00 Metoprolol Tartrate (Lopressor) 12.5 mg BID NGT Last administered on 02/13/17 08:30; Admin Dose 12.5 MG; Start 01/24/17 at 21:00 Nystatin 5 ml 5 ml Q6 PO Last administered on 02/13/17 12:26; Admin Dose 5 ML; Start 01/31/17 at 12:00 Cefepime HCl (Maxipime 1gm/50 ml (Pmx)) 50 ml @ 100 mls/hr DAILY IVPB Last administered on 02/13/17 08:29; Admin Dose 100 MLS/HR; Start 02/02/17 at 11:00 Insulin Glargine (Lantus) 40 unit DAILY@20 SC Last administered on 02/12/17 21: 56; Admin Dose 40 UNIT; Start 02/04/17 at 20:00 Tobramycin TOBRAMYCIN PER PHARMACY NOTE XX ; Start 02/04/17 at 20:30 Caspofungin/ Sodium Chloride (Cancidas/NS) 250 ml @ 250 mls/hr Q24H IVPB Last administered on 02/12/17 22:00; Admin Dose 250 MLS/HR; Start 02/05/17 at 22:00 Lansoprazole (Prevacid) 30 mg DAILY@06 GTB Last administered on 02/13/17 06:03 ; Admin Dose 30 MG; Start 02/09/17 at 06:00 Insulin Aspart (Novolog Insulin Pen) NOVOLOG *MODERATE* ALGORI... Q6 SC Last administered on 02/13/17 12:30; Admin Dose 2 UNIT; Start 02/09/17 at 18:00 Amiodarone HCl (Cordarone) 200 mg Q12 NGT Last administered on 02/13/17 08:30; Admin Dose 200 MG; Start 02/10/17 at 21:00 Apixaban (Eliquis) 2.5 mg BID PO Last administered on 02/13/17 08:30; Admin Dose 2.5 MG; Start 02/11/17 at 21:00 Assessment/Plan Additional Assessment/Plan IMP: 1. s/p Cardiopulmonary Arrest: Likely a respiratory event leading to the asystolic event 2. CHF/Volume overload 3. Respiratory Failure/Vent 4. Anoxic Brain Encephalopathy 5. s/p Fungemia 6. CKD 7. Anemia RECS: 1. Vent support 2. CPT/BDs 3. Wound care 4. TFs/Free H2O JACOB SANTIZO MD Feb 13, 2017 13:48
--- NOTE | 2017-02-13 14:00 | CONS ---
Date/Time of Note Date/Time of Note DATE: 02/13/17 TIME: 13:59 Assessment/Plan Assessment/Plan Additional Assessment/Plan 1. Atrial fibrillation-Having episodes of PAF with reasonable rate control. Currently in SR - rate controlled - will follow 2. Hypotension-borderline and labile 3. Abnormal electrocardiogram with inferolateral T-wave inversions. 4. Respiratory failure-s/p trach placement - on vent 5. Nonhealing toe ulceration-vascular following 6. Peripheral arterial disease by arterial ultrasound of the lower extremities this admission. 7. Diabetes mellitus- on meds,, keep euglycemic 8. Fevers- resolved, on anti-bx now 9. Positive troponin-downtrended - no intervention planned 10.Bradycardia-improved/stable 11.-severe by echo 12.Cardiomyopathy-EF 40-45% by echo/36% by stress with no ischemia but positive scar. EF <30% by echo post arrest 14.Encephalopathy-anoxic 15. s/p cardiopulmonary arrest 01/08 Consultation Date/Type/Reason Admit Date/Time Dec 02, 2016 at 21:01 Initial Consult Date 12/03/16 Type of Consultation: Pulm Referring Provider: VIET PARKER MD 24 HR Interval Summary Free Text/Dictation No acute change - no ectopy on tele ROS: No fever, no chills, no nausea, no vomiting, no diarrhea/constipation No recent weight changes No chest pain, no PND, no orthopnea No dizziness, blurred vision No thirst, no heat or cold intolerance (per nurse) Exam/Review of Systems Vital Signs Vitals Vital Signs Date Time Temp Pulse Resp B/P Pulse Ox O2 Delivery O2 Flow Rate FiO2 02/13/17 12:53 72 02/13/17 11:26 98.1 18 114/53 99 02/13/17 11:15 30 02/12/17 12:10 Mechanical Ventilator Intake and Output 02/12/17 02/12/17 02/13/17 15:00 23:00 07:00 Intake Total 805 ml 810 ml 950 ml Output Total 2000 ml 30 ml 150 ml Balance -1195 ml 780 ml 800 ml Exam General: WN/WD/NAD, AOx 0 HEENT: Unicetric/atraumatic/EOMI (does not follow commands) NECK: trach Lymph: no lymphadenopathy HEART: regular with no S3, II/ systolic murmur at apex LUNGS: Coarse sounds ABD: soft, NT, ND, +BS : Intact Neuro: non focal SKIN: chronic changes EXT: trace edema Results Result Diagram: 02/13/17 0545 02/13/17 0545 Results 24 hrs Laboratory Tests Test 02/12/17 17:43 02/12/17 21:26 02/13/17 00:40 02/13/17 05:45 Bedside Glucose 201 205 203 White Blood Count 15.6 H Red Blood Count 2.82 L Hemoglobin 8.1 L Hematocrit 25.4 L Mean Corpuscular Volume 90.1 Mean Corpuscular Hemoglobin 28.7 L Mean Corpuscular Hemoglobin Concent 31.9 L Red Cell Distribution Width 14.5 Platelet Count 268 Mean Platelet Volume 9.9 Neutrophils % 84.1 H Lymphocytes % 8.0 L Monocytes % 5.2 Eosinophils % 0.4 Basophils % 0.1 Nucleated Red Blood Cells % 0.0 Neutrophils # 13.1 H Lymphocytes # 1.3 Monocytes # 0.8 Eosinophils # 0.1 Basophils # 0.0 Nucleated Red Blood Cells # 0.0 Sodium Level 139 Potassium Level 3.9 Chloride Level 89 L Carbon Dioxide Level 32 H Anion Gap 22 H Blood Urea Nitrogen 52 H Creatinine 1.95 H Glucose Level 105 # Calcium Level 9.0 Test 02/13/17 06:04 02/13/17 12:25 Bedside Glucose 103 177 Medications Medications Current Medications Ondansetron HCl (Zofran Inj) 4 mg Q6H PRN IV NAUSEA AND/OR VOMITING Last administered on 12/13/16 01:13; Admin Dose 4 MG; Start 12/02/16 at 22:30 Miscellaneous Information 1 ea NOTE XX ; Start 12/02/16 at 23:00 Glucose (Glutose) 15 gm Q15M PRN PO DECREASED GLUCOSE; Start 12/02/16 at 23:00 Glucose (Glutose) 22.5 gm Q15M PRN PO DECREASED GLUCOSE; Start 12/02/16 at 23: 00 Dextrose (D50w Syringe) 25 ml Q15M PRN IV DECREASED GLUCOSE Last administered on 01/26/17 05:21; Admin Dose 25 ML; Start 12/02/16 at 23:00 Dextrose (D50w Syringe) 50 ml Q15M PRN IV DECREASED GLUCOSE Last administered on 01/23/17 04:58; Admin Dose 50 ML; Start 12/02/16 at 23:00 Glucagon (Glucagen) 1 mg Q15M PRN IM DECREASED GLUCOSE; Start 12/02/16 at 23:00 Glucose (Glutose) 15 gm Q15M PRN BUCCAL DECREASED GLUCOSE; Start 12/02/16 at 23 :00 Acetaminophen (Tylenol Supp) 650 mg Q6H PRN [place] ELEVATED TEMPERATURE Last administered on 01/13/17 20:32; Admin Dose 650 MG; Start 12/09/16 at 17:00 Hydralazine HCl (Apresoline) 10 mg Q6H PRN IV SBP>150mm hg Last administered on 12/19/16 08:50; Admin Dose 10 MG; Start 12/11/16 at 10:30 Morphine Sulfate (morphine) 2 mg Q2H PRN IV PAIN LEVEL 4-7; Start 12/13/16 at 10 :00 Collagenase (Santyl) 1 applic DAILY TOP Last administered on 02/13/17 08:30; Admin Dose 1 APPLIC; Start 01/04/17 at 09:00 Metoprolol Tartrate (Lopressor) 5 mg Q4 PRN IV FOR H.R>110; Start 01/12/17 at 17:30 Acetaminophen (Tylenol Liquid) 650 mg Q6H PRN NGT PAIN AND [place] ELEVATED TEMP Last administered on 02/03/17 17:37; Admin Dose 650 MG; Start 01/13/17 at 23:30 Acetaminophen/ Hydrocodone Bitart ([place] (5/325)) 1 tab Q6H PRN NGT PAIN LEVEL 4-7; Start 01/13/17 at 23:30 Levetiracetam (Keppra Liquid) 1,000 mg DAILY NGT Last administered on 02/13/17 08:30; Admin Dose 1,000 MG; Start 01/14/17 at 09:00 Meclizine HCl (Antivert) 25 mg TID PRN NGT dizziness; Start 01/13/17 at 20:00 Zolpidem Tartrate (Ambien) 5 mg HS PRN NGT INSOMNIA; Start 01/13/17 at 20:00 Docusate Sodium (Colace Liquid Cup) 100 mg BID NGT Last administered on 08:29; Admin Dose 100 MG; Start 01/13/17 at 21:00 Metoprolol Tartrate (Lopressor) 12.5 mg BID NGT Last administered on 02/13/17 08:30; Admin Dose 12.5 MG; Start 01/24/17 at 21:00 Nystatin 5 ml 5 ml Q6 PO Last administered on 02/13/17 12:26; Admin Dose 5 ML; Start 01/31/17 at 12:00 Cefepime HCl (Maxipime 1gm/50 ml (Pmx)) 50 ml @ 100 mls/hr DAILY IVPB Last administered on 02/13/17 08:29; Admin Dose 100 MLS/HR; Start 02/02/17 at 11:00 Insulin Glargine (Lantus) 40 unit DAILY@20 SC Last administered on 02/12/17 21: 56; Admin Dose 40 UNIT; Start 02/04/17 at 20:00 Tobramycin TOBRAMYCIN PER PHARMACY NOTE XX ; Start 02/04/17 at 20:30 Caspofungin/ Sodium Chloride (Cancidas/NS) 250 ml @ 250 mls/hr Q24H IVPB Last administered on 02/12/17 22:00; Admin Dose 250 MLS/HR; Start 02/05/17 at 22:00 Lansoprazole (Prevacid) 30 mg DAILY@06 GTB Last administered on 02/13/17 06:03 ; Admin Dose 30 MG; Start 02/09/17 at 06:00 Insulin Aspart (Novolog Insulin Pen) NOVOLOG *MODERATE* ALGORI... Q6 SC Last administered on 02/13/17 12:30; Admin Dose 2 UNIT; Start 02/09/17 at 18:00 Amiodarone HCl (Cordarone) 200 mg Q12 NGT Last administered on 02/13/17 08:30; Admin Dose 200 MG; Start 02/10/17 at 21:00 Apixaban (Eliquis) 2.5 mg BID PO Last administered on 02/13/17 08:30; Admin Dose 2.5 MG; Start 02/11/17 at 21:00 DAVE NICOLE MD Feb 13, 2017 14:00
--- NOTE | 2017-02-13 14:26 | PN ---
Date/Time of Note Date/Time of Note DATE: 02/13/17 TIME: 14:21 Assessment/Plan VTE Prophylaxis VTE Prophylaxis Intervention: other Lines/Catheters IV Catheter Type (from [facility]): [place] [facility] Urinary Cath still in place: No Assessment/Plan Assessment/Plan - Dysphagia. S/p G-tube by Dr. Smith. Continue G-tube feeding monitor residual. - Possible recurrent sepsis, resolving. continue antibiotics per ID. Dr Celena pritchard is following infection disease consultation. - Anemia of blood loss. Continue to monitor H&H, transfuse as needed. - Status post cardiopulmonary arrest on 12/09/2016 and 01/08/2017. Continue ventilatory support. - Anoxic encephalopathy. Continue Keppra. - Status post tracheostomy on 01/23/2017. - End-stage renal disease. Continue hemodialysis per nephrology. - Paroxysmal atrial fibrillation. Eliquis is currently held due to bleeding. - Diabetes mellitus type 2. Continue Lantus and NovoLog with sliding scale coverage with Accu-Cheks q. 4 hours. - Diabetic foot ulcer. Continue current wound care. - Osteomyelitis of the distal phalanx of the great left toe. Completed treatment for antibiotics. Continue sequential compression device for deep venous thrombosis prophylaxis and Protonix for peptic ulcer disease prophylaxis. Case management for [facility] facility placement and arrangement for hemodialysis. Further recommendations based on clinical course. Plan of care discussed with Dr. Heredia. Subjective 24 Hr Interval Summary Free Text/Dictation afebrile, trach intact- no bleeding noted- DTI maddie heels reported by staff.dw staff Exam/Review of Systems Vital Signs Vitals Vital Signs Date Time Temp Pulse Resp B/P Pulse Ox O2 Delivery O2 Flow Rate FiO2 02/13/17 13:10 68 17 97 30 02/13/17 11:26 98.1 114/53 02/12/17 12:10 Mechanical Ventilator Intake and Output 02/12/17 02/12/17 02/13/17 15:00 23:00 07:00 Intake Total 805 ml 810 ml 950 ml Output Total 2000 ml 30 ml 150 ml Balance -1195 ml 780 ml 800 ml Exam Constitutional: non-verbal Respiratory: diminished breath sounds Gastrointestinal: non-tender, other, soft Extremities: normal pulses Neurological: unresponsive Skin: other (DTI - bilateral heels) Results Result Diagram: 02/13/17 0545 02/13/17 0545 Results 24 hrs Laboratory Tests Test 02/12/17 17:43 02/12/17 21:26 02/13/17 00:40 02/13/17 05:45 Bedside Glucose 201 205 203 White Blood Count 15.6 H Red Blood Count 2.82 L Hemoglobin 8.1 L Hematocrit 25.4 L Mean Corpuscular Volume 90.1 Mean Corpuscular Hemoglobin 28.7 L Mean Corpuscular Hemoglobin Concent 31.9 L Red Cell Distribution Width 14.5 Platelet Count 268 Mean Platelet Volume 9.9 Neutrophils % 84.1 H Lymphocytes % 8.0 L Monocytes % 5.2 Eosinophils % 0.4 Basophils % 0.1 Nucleated Red Blood Cells % 0.0 Neutrophils # 13.1 H Lymphocytes # 1.3 Monocytes # 0.8 Eosinophils # 0.1 Basophils # 0.0 Nucleated Red Blood Cells # 0.0 Sodium Level 139 Potassium Level 3.9 Chloride Level 89 L Carbon Dioxide Level 32 H Anion Gap 22 H Blood Urea Nitrogen 52 H Creatinine 1.95 H Glucose Level 105 # Calcium Level 9.0 Test 02/13/17 06:04 02/13/17 12:25 Bedside Glucose 103 177 Medications Medications Current Medications Ondansetron HCl (Zofran Inj) 4 mg Q6H PRN IV NAUSEA AND/OR VOMITING Last administered on 12/13/16 01:13; Admin Dose 4 MG; Start 12/02/16 at 22:30 Miscellaneous Information 1 ea NOTE XX ; Start 12/02/16 at 23:00 Glucose (Glutose) 15 gm Q15M PRN PO DECREASED GLUCOSE; Start 12/02/16 at 23:00 Glucose (Glutose) 22.5 gm Q15M PRN PO DECREASED GLUCOSE; Start 12/02/16 at 23: 00 Dextrose (D50w Syringe) 25 ml Q15M PRN IV DECREASED GLUCOSE Last administered on 01/26/17 05:21; Admin Dose 25 ML; Start 12/02/16 at 23:00 Dextrose (D50w Syringe) 50 ml Q15M PRN IV DECREASED GLUCOSE Last administered on 01/23/17 04:58; Admin Dose 50 ML; Start 12/02/16 at 23:00 Glucagon (Glucagen) 1 mg Q15M PRN IM DECREASED GLUCOSE; Start 12/02/16 at 23:00 Glucose (Glutose) 15 gm Q15M PRN BUCCAL DECREASED GLUCOSE; Start 12/02/16 at 23 :00 Acetaminophen (Tylenol Supp) 650 mg Q6H PRN [place] ELEVATED TEMPERATURE Last administered on 01/13/17 20:32; Admin Dose 650 MG; Start 12/09/16 at 17:00 Hydralazine HCl (Apresoline) 10 mg Q6H PRN IV SBP>150mm hg Last administered on 12/19/16 08:50; Admin Dose 10 MG; Start 12/11/16 at 10:30 Morphine Sulfate (morphine) 2 mg Q2H PRN IV PAIN LEVEL 4-7; Start 12/13/16 at 10 :00 Collagenase (Santyl) 1 applic DAILY TOP Last administered on 02/13/17 08:30; Admin Dose 1 APPLIC; Start 01/04/17 at 09:00 Metoprolol Tartrate (Lopressor) 5 mg Q4 PRN IV FOR H.R>110; Start 01/12/17 at 17:30 Acetaminophen (Tylenol Liquid) 650 mg Q6H PRN NGT PAIN AND OR ELEVATED TEMP Last administered on 02/03/17 17:37; Admin Dose 650 MG; Start 01/13/17 at 23:30 Acetaminophen/ Hydrocodone Bitart ([place] (5/325)) 1 tab Q6H PRN NGT PAIN LEVEL 4-7; Start 01/13/17 at 23:30 Levetiracetam (Keppra Liquid) 1,000 mg DAILY NGT Last administered on 02/13/17 08:30; Admin Dose 1,000 MG; Start 01/14/17 at 09:00 Meclizine HCl (Antivert) 25 mg TID PRN NGT dizziness; Start 01/13/17 at 20:00 Zolpidem Tartrate (Ambien) 5 mg HS PRN NGT INSOMNIA; Start 01/13/17 at 20:00 Docusate Sodium (Colace Liquid Cup) 100 mg BID NGT Last administered on 08:29; Admin Dose 100 MG; Start 01/13/17 at 21:00 Metoprolol Tartrate (Lopressor) 12.5 mg BID NGT Last administered on 02/13/17 08:30; Admin Dose 12.5 MG; Start 01/24/17 at 21:00 Nystatin 5 ml 5 ml Q6 PO Last administered on 02/13/17 12:26; Admin Dose 5 ML; Start 01/31/17 at 12:00 Cefepime HCl (Maxipime 1gm/50 ml (Pmx)) 50 ml @ 100 mls/hr DAILY IVPB Last administered on 02/13/17 08:29; Admin Dose 100 MLS/HR; Start 02/02/17 at 11:00 Insulin Glargine (Lantus) 40 unit DAILY@20 SC Last administered on 02/12/17 21: 56; Admin Dose 40 UNIT; Start 02/04/17 at 20:00 Tobramycin TOBRAMYCIN PER PHARMACY NOTE XX ; Start 02/04/17 at 20:30 Caspofungin/ Sodium Chloride (Cancidas/NS) 250 ml @ 250 mls/hr Q24H IVPB Last administered on 02/12/17 22:00; Admin Dose 250 MLS/HR; Start 02/05/17 at 22:00 Lansoprazole (Prevacid) 30 mg DAILY@06 GTB Last administered on 02/13/17 06:03 ; Admin Dose 30 MG; Start 02/09/17 at 06:00 Insulin Aspart (Novolog Insulin Pen) NOVOLOG *MODERATE* ALGORI... Q6 SC Last administered on 02/13/17 12:30; Admin Dose 2 UNIT; Start 02/09/17 at 18:00 Amiodarone HCl (Cordarone) 200 mg Q12 NGT Last administered on 02/13/17 08:30; Admin Dose 200 MG; Start 02/10/17 at 21:00 Apixaban (Eliquis) 2.5 mg BID PO Last administered on 02/13/17 08:30; Admin Dose 2.5 MG; Start 02/11/17 at 21:00 YULIANA SIMMONS Feb 13, 2017 14:26
[2017-02-13] MEDS: INSULIN GLARGINE [LANtus] 3 ML PEN SC SCH (21:48)
[2017-02-13] MEDS: CASPOFUNGIN 50 MG in SOD CHLORIDE 0.9% 250 ML IVPB SCH (22:03)
[2017-02-14] VITALS (34 sets, daily range): BP systolic 95–168; BP diastolic 50–77; PULSE 66–85; RESP 16–22
[2017-02-14] MEDS: NYSTATIN SUSP 5 ML CUP PO SCH ×4 (00:55→17:45)
[2017-02-14] MEDS: INSULIN ASPART [NOVOLOG] 3 ML PEN SC SCH ×4 (01:03→20:25)
[2017-02-14] MEDS: ALBUTEROL 18 GM INHALER INH SCH ×4 (03:21→20:02)
[2017-02-14] MEDS: LANSOPRAZOLE 30 MG CAP GTB SCH (05:16)
[2017-02-14 05:53] LABS: BASOPHILS % 0.1 % (0.0-2.0); EOSINOPHILS # 0.1 10^3/ul (0.0-0.5); EOSINOPHILS % 0.3 % (0.0-7.0); HEMATOCRIT 26.1 % (42.0-52.0); HEMOGLOBIN 8.3 g/dl (14.0-18.0); LYMPHOCYTES # 1.4 10^3/ul (0.8-2.9); LYMPHOCYTES % 9.2 % (15.0-51.0); MEAN CORPUSCULAR HEMOGLOBIN 28.6 pg (29.0-33.0); MEAN CORPUSCULAR HGB CONC 31.8 g/dl (32.0-37.0); MEAN PLATELET VOLUME 9.9 fl (7.4-10.4); MONOCYTE # 0.9 10^3/ul (0.3-0.9); MONOCYTES % 5.8 % (0.0-11.0); NEUTROPHIL # 12.2 10^3/ul (1.6-7.5); NEUTROPHILS % 82.2 % (39.0-77.0); PLATELET COUNT 274 10^3/UL (140-415); RED CELL DISTRIBUTION WIDTH 14.4 % (11.5-14.5); WHITE BLOOD COUNT 14.9 10^3/ul (4.8-10.8)
[2017-02-14 06:02] LABS: ADD SCAN DIFF NO
[2017-02-14 06:21] LABS: CALCIUM 8.9 mg/dl (8.4-10.2); CREATININE 2.66 mg/dl (0.61-1.24); POTASSIUM 4.2 mmol/L (3.5-5.1)
[2017-02-14] MEDS ORDERED: HYPOGLYCEMIA PROTOCOL when Glucose is <70 mg/dL or symptomatic <90 mg/dL. XX ONE ×2 (08:30→15:00)
[2017-02-14] MEDS: METOPROLOL 25 MG TAB NGT SCH ×2 (09:00→21:16)
[2017-02-14] MEDS: DOCUSATE SODIUM 10 MG/ML (10ML CUP) NGT SCH (09:42)
[2017-02-14] MEDS: CEFEPIME 1GM/50 ML (PMX) 50 ML IVPB SCH (09:42)
[2017-02-14] MEDS: AMIODARONE 200 MG TAB NGT SCH (09:43)
[2017-02-14] MEDS: COLLAGENASE 30 GM TUBE TOP SCH (09:43)
[2017-02-14] MEDS: LEVETIRACETAM (100 MG/ML) 5ML CUP NGT SCH (09:43)
[2017-02-14] MEDS: APIXABAN 5 MG TABLET PO SCH (09:43)
--- NOTE | 2017-02-14 11:13 | CONS ---
Date/Time of Note Date/Time of Note DATE: 02/14/17 TIME: 11:11 Assessment/Plan Assessment/Plan Additional Assessment/Plan -- recurrent cardiopulmonary arrest on 12/09/2016 and on 01/08/2017 possible recurrent sepsis due to pneumonia - recurrent cardiopulmonary arrest on 12/09/2016 and on 01/08/2017 - s/p sepsis due to possible tracheobronchitis/pneumonia - recurrent pneumonia due to pseudomonas - thrush, refractory to nystatin - funguria - bleeding from trach site - s/p recurrent sepsis - 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 Blood cultures from HD catheter on 12/13/2016 are negative to date. 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 MRI on 12/06/2016 and bone scan on showed early OM of the distal phalanx of the left great toe and left fourth proximal phalanx. superficial swab grew inna only. At present, no e/o persistent infection - recurrent pleural effusion - s/p right pleural effusion s/p thoracentesis with .9L removed on 12/16/2016; ( Note: there is no pleural fluid cx since orders were placed after Right thoracentesis, and Left thoracentesis was not performed on 12/17/16 d/t insufficient fluid) - ARANZA on CKD that progressed to ESRD and started on HD from 12/09/2016 - oliguria - improved - A fib -> PAF - small nonreversible perfusion abnormality in the inferoapical and inferior carver; EF 36% per Lexiscan 12/24/2016 - severe , EF 40-45% per TTE 12/17/16 - DM - Hgb A1c 8.7% - HTN associated with DM - acute encephalopathy with anoxic brain injury - unstageable decubitus ulcer of coccyx, no evidence of infection - dysphagia s/p G-tube placement 02/08/2017 NOTE: Pt completed 6 weeks (12/03/2016-01/15/2017) of antibiotics to treat early OM of the distal phalanx of the left great toe and left fourth proximal phalanx ; s/p pip/tazo 12/03/16-01/08/17; linezolid 01/08/17-01/20/17; caspofungin 01/12/17-01/21/17, restarted recommendations: - f/u studies - monitor wbc - check procalc - continue renally dosed cefepime (restarted on 02/02/2017-) and IV tobramycin (-) for pseudomonas - continue empiric caspofungin (02/04/2017-) - continue nystatin for thrush Consultation Date/Type/Reason Admit Date/Time Dec 02, 2016 at 21:01 Initial Consult Date 12/08/16 Type of Consultation: Pulm Referring Provider: VIET PARKER MD 24 HR Interval Summary Free Text/Dictation leukocytosis better today, afebrile, dw staff Constitutional: requiring IVF, requiring O2 Exam/Review of Systems Vital Signs Vitals Vital Signs Date Time Temp Pulse Resp B/P Pulse Ox O2 Delivery O2 Flow Rate FiO2 02/14/17 11:02 98.0 66 19 105/57 100 02/14/17 09:52 30 02/12/17 12:10 Mechanical Ventilator Intake and Output 02/13/17 02/13/17 02/14/17 15:00 23:00 07:00 Intake Total 790 ml 1000 ml Output Total 200 ml 250 ml Balance 590 ml 750 ml Exam Constitutional: non-verbal Respiratory: clear to auscultation, normal air movement Cardiovascular: nl pulses, regular rate and rhythm Gastrointestinal: non-tender, soft Extremities: normal pulses Skin: other (coccyx/sacral decubs) Results Result Diagram: 02/14/17 0530 02/14/17 0530 Results 24 hrs Laboratory Tests Test 02/13/17 12:25 02/13/17 17:35 02/13/17 21:37 02/14/17 00:56 Bedside Glucose 177 188 198 224 H Test 02/14/17 05:15 02/14/17 05:30 Bedside Glucose 131 White Blood Count 14.9 H Red Blood Count 2.90 L Hemoglobin 8.3 L Hematocrit 26.1 L Mean Corpuscular Volume 90.0 Mean Corpuscular Hemoglobin 28.6 L Mean Corpuscular Hemoglobin Concent 31.8 L Red Cell Distribution Width 14.4 Platelet Count 274 Mean Platelet Volume 9.9 Neutrophils % 82.2 H Lymphocytes % 9.2 L Monocytes % 5.8 Eosinophils % 0.3 Basophils % 0.1 Nucleated Red Blood Cells % 0.0 Neutrophils # 12.2 H Lymphocytes # 1.4 Monocytes # 0.9 Eosinophils # 0.1 Basophils # 0.0 Nucleated Red Blood Cells # 0.0 Sodium Level 136 Potassium Level 4.2 Chloride Level 89 L Carbon Dioxide Level 34 H Anion Gap 17 H Blood Urea Nitrogen 76 H Creatinine 2.66 H Glucose Level 126 Calcium Level 8.9 Medications Medications Current Medications Ondansetron HCl (Zofran Inj) 4 mg Q6H PRN IV NAUSEA AND/OR VOMITING Last administered on 12/13/16 01:13; Admin Dose 4 MG; Start 12/02/16 at 22:30 Miscellaneous Information 1 ea NOTE XX ; Start 12/02/16 at 23:00 Glucose (Glutose) 15 gm Q15M PRN PO DECREASED GLUCOSE; Start 12/02/16 at 23:00 Glucose (Glutose) 22.5 gm Q15M PRN PO DECREASED GLUCOSE; Start 12/02/16 at 23: 00 Dextrose (D50w Syringe) 25 ml Q15M PRN IV DECREASED GLUCOSE Last administered on 01/26/17 05:21; Admin Dose 25 ML; Start 12/02/16 at 23:00 Dextrose (D50w Syringe) 50 ml Q15M PRN IV DECREASED GLUCOSE Last administered on 01/23/17 04:58; Admin Dose 50 ML; Start 12/02/16 at 23:00 Glucagon (Glucagen) 1 mg Q15M PRN IM DECREASED GLUCOSE; Start 12/02/16 at 23:00 Glucose (Glutose) 15 gm Q15M PRN BUCCAL DECREASED GLUCOSE; Start 12/02/16 at 23 :00 Acetaminophen (Tylenol Supp) 650 mg Q6H PRN [place] ELEVATED TEMPERATURE Last administered on 01/13/17 20:32; Admin Dose 650 MG; Start 12/09/16 at 17:00 Hydralazine HCl (Apresoline) 10 mg Q6H PRN IV SBP>150mm hg Last administered on 12/19/16 08:50; Admin Dose 10 MG; Start 12/11/16 at 10:30 Morphine Sulfate (morphine) 2 mg Q2H PRN IV PAIN LEVEL 4-7; Start 12/13/16 at 10 :00 Collagenase (Santyl) 1 applic DAILY TOP Last administered on 02/14/17 09:43; Admin Dose 1 APPLIC; Start 01/04/17 at 09:00 Metoprolol Tartrate (Lopressor) 5 mg Q4 PRN IV FOR H.R>110; Start 01/12/17 at 17:30 Acetaminophen (Tylenol Liquid) 650 mg Q6H PRN NGT PAIN AND OR ELEVATED TEMP Last administered on 02/03/17 17:37; Admin Dose 650 MG; Start 01/13/17 at 23:30 Acetaminophen/ Hydrocodone Bitart ([place] (5/325)) 1 tab Q6H PRN NGT PAIN LEVEL 4-7; Start 01/13/17 at 23:30 Levetiracetam (Keppra Liquid) 1,000 mg DAILY NGT Last administered on 02/14/17 09:43; Admin Dose 1,000 MG; Start 01/14/17 at 09:00 Meclizine HCl (Antivert) 25 mg TID PRN NGT dizziness; Start 01/13/17 at 20:00 Zolpidem Tartrate (Ambien) 5 mg HS PRN NGT INSOMNIA; Start 01/13/17 at 20:00 Docusate Sodium (Colace Liquid Cup) 100 mg BID NGT Last administered on 09:42; Admin Dose 100 MG; Start 01/13/17 at 21:00 Metoprolol Tartrate (Lopressor) 12.5 mg BID NGT Last administered on 02/13/17 08:30; Admin Dose 12.5 MG; Start 01/24/17 at 21:00 Nystatin 5 ml 5 ml Q6 PO Last administered on 02/14/17 05:16; Admin Dose 5 ML; Start 01/31/17 at 12:00 Cefepime HCl (Maxipime 1gm/50 ml (Pmx)) 50 ml @ 100 mls/hr DAILY IVPB Last administered on 02/14/17 09:42; Admin Dose 100 MLS/HR; Start 02/02/17 at 11:00 Tobramycin TOBRAMYCIN PER PHARMACY NOTE XX ; Start 02/04/17 at 20:30 Caspofungin/ Sodium Chloride (Cancidas/NS) 250 ml @ 250 mls/hr Q24H IVPB Last administered on 02/13/17 22:03; Admin Dose 250 MLS/HR; Start 02/05/17 at 22:00 Lansoprazole (Prevacid) 30 mg DAILY@06 GTB Last administered on 02/14/17 05:16 ; Admin Dose 30 MG; Start 02/09/17 at 06:00 Insulin Aspart (Novolog Insulin Pen) NOVOLOG *MODERATE* [place]I... Q6 SC Last administered on 02/14/17 01:03; Admin Dose 6 UNIT; Start 02/09/17 at 18:00 Amiodarone HCl (Cordarone) 200 mg Q12 NGT Last administered on 02/14/17 09:43; Admin Dose 200 MG; Start 02/10/17 at 21:00 Apixaban (Eliquis) 2.5 mg BID PO Last administered on 02/14/17 09:43; Admin Dose 2.5 MG; Start 02/11/17 at 21:00 Insulin Glargine (Lantus) 46 unit DAILY@20 SC ; Start 02/14/17 at 20:00 Diagnostic Test (Pha) (Accu-Chek) 1 XX ; Start 02/15/17 at 02:00 YULIANA SIMMONS Feb 14, 2017 11:12
--- NOTE | 2017-02-14 11:13 | CONS ---
Date/Time of Note Date/Time of Note DATE: 02/14/17 TIME: 11:11 Assessment/Plan Assessment/Plan Additional Assessment/Plan 1. Atrial fibrillation-Having episodes of PAF with reasonable rate control. Currently in SR - rate controlled - will follow - rate controlled on tele now 2. Hypotension-borderline and labile - stable overall 3. Abnormal electrocardiogram with inferolateral T-wave inversions. 4. Respiratory failure-s/p trach placement - on vent - resp rx in place 5. Nonhealing toe ulceration-vascular following 6. Peripheral arterial disease by arterial ultrasound of the lower extremities this admission. 7. Diabetes mellitus- on meds,, keep euglycemic 8. Fevers- resolved, on anti-bx now 9. Positive troponin-downtrended - no intervention planned 10.Bradycardia-improved/stable 11.-severe by echo 12.Cardiomyopathy-EF 40-45% by echo/36% by stress with no ischemia but positive scar. EF <30% by echo post arrest 14.Encephalopathy-anoxic 15. s/p cardiopulmonary arrest 01/08 Consultation Date/Type/Reason Admit Date/Time Dec 02, 2016 at 21:01 Initial Consult Date 12/03/16 Type of Consultation: Pulm Referring Provider: VIET PARKER MD 24 HR Interval Summary Free Text/Dictation NO acute events - BP in range - will monitor ROS: No fever, no chills, no nausea, no vomiting, no diarrhea/constipation No recent weight changes No chest pain, no PND, no orthopnea No dizziness, blurred vision No thirst, no heat or cold intolerance (per nurse) Exam/Review of Systems Vital Signs Vitals Vital Signs Date Time Temp Pulse Resp B/P Pulse Ox O2 Delivery O2 Flow Rate FiO2 02/14/17 11:02 98.0 66 19 105/57 100 02/14/17 09:52 30 02/12/17 12:10 Mechanical Ventilator Intake and Output 02/13/17 02/13/17 02/14/17 15:00 23:00 07:00 Intake Total 790 ml 1000 ml Output Total 200 ml 250 ml Balance 590 ml 750 ml Exam General: WN/WD/NAD, AOx 0 HEENT: Unicetric/atraumatic/EOMI (does not follow commands) NECK: JVD elevated, no thyromegaly Lymph: no lymphadenopathy HEART: regular with no S3, II/ systolic murmur at apex LUNGS: Coarse sounds ABD: soft, NT, ND, +BS : Intact - HD now Neuro: non focal SKIN: chronic changes EXT: trace edema Results Result Diagram: 02/14/1730 02/14/17 0530 Results 24 hrs Laboratory Tests Test 02/13/17 12:25 02/13/17 17:35 02/13/17 21:37 02/14/17 00:56 Bedside Glucose 177 188 198 224 H Test 02/14/17 05:15 02/14/17 05:30 Bedside Glucose 131 White Blood Count 14.9 H Red Blood Count 2.90 L Hemoglobin 8.3 L Hematocrit 26.1 L Mean Corpuscular Volume 90.0 Mean Corpuscular Hemoglobin 28.6 L Mean Corpuscular Hemoglobin Concent 31.8 L Red Cell Distribution Width 14.4 Platelet Count 274 Mean Platelet Volume 9.9 Neutrophils % 82.2 H Lymphocytes % 9.2 L Monocytes % 5.8 Eosinophils % 0.3 Basophils % 0.1 Nucleated Red Blood Cells % 0.0 Neutrophils # 12.2 H Lymphocytes # 1.4 Monocytes # 0.9 Eosinophils # 0.1 Basophils # 0.0 Nucleated Red Blood Cells # 0.0 Sodium Level 136 Potassium Level 4.2 Chloride Level 89 L Carbon Dioxide Level 34 H Anion Gap 17 H Blood Urea Nitrogen 76 H Creatinine 2.66 H Glucose Level 126 Calcium Level 8.9 Medications Medications Current Medications Ondansetron HCl (Zofran Inj) 4 mg Q6H PRN IV NAUSEA AND/OR VOMITING Last administered on 12/13/16 01:13; Admin Dose 4 MG; Start 12/02/16 at 22:30 Miscellaneous Information 1 ea NOTE XX ; Start 12/02/16 at 23:00 Glucose (Glutose) 15 gm Q15M PRN PO DECREASED GLUCOSE; Start 12/02/16 at 23:00 Glucose (Glutose) 22.5 gm Q15M PRN PO DECREASED GLUCOSE; Start 12/02/16 at 23: 00 Dextrose (D50w Syringe) 25 ml Q15M PRN IV DECREASED GLUCOSE Last administered on 01/26/17 05:21; Admin Dose 25 ML; Start 12/02/16 at 23:00 Dextrose (D50w Syringe) 50 ml Q15M PRN IV DECREASED GLUCOSE Last administered on 01/23/17 04:58; Admin Dose 50 ML; Start 12/02/16 at 23:00 Glucagon (Glucagen) 1 mg Q15M PRN IM DECREASED GLUCOSE; Start 12/02/16 at 23:00 Glucose (Glutose) 15 gm Q15M PRN BUCCAL DECREASED GLUCOSE; Start 12/02/16 at 23 :00 Acetaminophen (Tylenol Supp) 650 mg Q6H PRN [place] ELEVATED TEMPERATURE Last administered on 01/13/17 20:32; Admin Dose 650 MG; Start 12/09/16 at 17:00 Hydralazine HCl (Apresoline) 10 mg Q6H PRN IV SBP>150mm hg Last administered on 12/19/16 08:50; Admin Dose 10 MG; Start 12/11/16 at 10:30 Morphine Sulfate (morphine) 2 mg Q2H PRN IV PAIN LEVEL 4-7; Start 12/13/16 at 10 :00 Collagenase (Santyl) 1 applic DAILY TOP Last administered on 02/14/17 09:43; Admin Dose 1 APPLIC; Start 01/04/17 at 09:00 Metoprolol Tartrate (Lopressor) 5 mg Q4 PRN IV FOR H.R>110; Start 01/12/17 at 17:30 Acetaminophen (Tylenol Liquid) 650 mg Q6H PRN NGT PAIN AND OR ELEVATED TEMP Last administered on 02/03/17 17:37; Admin Dose 650 MG; Start 01/13/17 at 23:30 Acetaminophen/ Hydrocodone Bitart ([place] (5/325)) 1 tab Q6H PRN NGT PAIN LEVEL 4-7; Start 01/13/17 at 23:30 Levetiracetam (Keppra Liquid) 1,000 mg DAILY NGT Last administered on 02/14/17 09:43; Admin Dose 1,000 MG; Start 01/14/17 at 09:00 Meclizine HCl (Antivert) 25 mg TID PRN NGT dizziness; Start 01/13/17 at 20:00 Zolpidem Tartrate (Ambien) 5 mg HS PRN NGT INSOMNIA; Start 01/13/17 at 20:00 Docusate Sodium (Colace Liquid Cup) 100 mg BID NGT Last administered on 09:42; Admin Dose 100 MG; Start 01/13/17 at 21:00 Metoprolol Tartrate (Lopressor) 12.5 mg BID NGT Last administered on 02/13/17 08:30; Admin Dose 12.5 MG; Start 01/24/17 at 21:00 Nystatin 5 ml 5 ml Q6 PO Last administered on 02/14/17 05:16; Admin Dose 5 ML; Start 01/31/17 at 12:00 Cefepime HCl (Maxipime 1gm/50 ml (Pmx)) 50 ml @ 100 mls/hr DAILY IVPB Last administered on 02/14/17 09:42; Admin Dose 100 MLS/HR; Start 02/02/17 at 11:00 Tobramycin TOBRAMYCIN PER PHARMACY NOTE XX ; Start 02/04/17 at 20:30 Caspofungin/ Sodium Chloride (Cancidas/NS) 250 ml @ 250 mls/hr Q24H IVPB Last administered on 02/13/17 22:03; Admin Dose 250 MLS/HR; Start 02/05/17 at 22:00 Lansoprazole (Prevacid) 30 mg DAILY@06 GTB Last administered on 02/14/17 05:16 ; Admin Dose 30 MG; Start 02/09/17 at 06:00 Insulin Aspart (Novolog Insulin Pen) NOVOLOG *MODERATE* ALGORI... Q6 SC Last administered on 02/14/17 01:03; Admin Dose 6 UNIT; Start 02/09/17 at 18:00 Amiodarone HCl (Cordarone) 200 mg Q12 NGT Last administered on 02/14/17 09:43; Admin Dose 200 MG; Start 02/10/17 at 21:00 Apixaban (Eliquis) 2.5 mg BID PO Last administered on 02/14/17 09:43; Admin Dose 2.5 MG; Start 02/11/17 at 21:00 Insulin Glargine (Lantus) 46 unit DAILY@20 SC ; Start 02/14/17 at 20:00 Diagnostic Test (Pha) (Accu-Chek) XX ; Start 02/15/17 at 02:00 DAVE NICOLE MD Feb 14, 2017 11:13
[2017-02-14] MEDS ORDERED: INSULIN ASPART [NOVOLOG] 3 ML PEN SC SCH ×2 (11:50)
[2017-02-14] MEDS: ONDANSETRON 4 MG INJ IV PRN (14:24)
[2017-02-14] MEDS: TOBRAMYCIN 100 MG in SOD CHLORIDE 0.9% 50 ML IVPB SCH (14:31)
--- NOTE | 2017-02-14 14:52 | PN ---
Date/Time of Note Date/Time of Note DATE: 02/14/17 TIME: 14:47 Assessment/Plan VTE Prophylaxis VTE Prophylaxis Intervention: SCD's Lines/Catheters [facility] [facility] Urinary Cath still in place: Yes Reason Cath still needed: urinary retention Assessment/Plan Chief Complaint/Hosp Course Patient with persistent leukocytosis, no fever, episode of elevated blood sugar , Lantus dose is increased, continue to monitor Accu-Chek every 4 hours. Multivitamin and zinc added as dietary supplements. ASSESSMENT AND PLAN: - Possible recurrent sepsis, resolving. continue antibiotics per ID. Dr Dallas group is following infection disease consultation. - Dysphagia. S/p G-tube by Dr. Smith. Continue G-tube feeding monitor residual. - Anemia of blood loss. Continue to monitor H&H, transfuse as needed. - Status post cardiopulmonary arrest on 12/09/2016 and 01/08/2017. Continue ventilatory support. - Anoxic encephalopathy. Continue Keppra. - Status post tracheostomy on 01/23/2017. Continue tracheostomy care, wound consult. - End-stage renal disease. Continue hemodialysis per nephrology. - Paroxysmal atrial fibrillation. Eliquis is currently held due to bleeding. - Diabetes mellitus type 2. Continue Lantus and NovoLog with sliding scale coverage with Accu-Cheks q. 4 hours. - Diabetic foot ulcer. Continue current wound care. - Osteomyelitis of the distal phalanx of the great left toe. Completed treatment for antibiotics. Continue sequential compression device for deep venous thrombosis prophylaxis and Protonix for peptic ulcer disease prophylaxis. Case management for group home facility placement and arrangement for hemodialysis. Further recommendations based on clinical course. Plan of care discussed with Dr. Heredia. Problems: Exam/Review of Systems Vital Signs Vitals Vital Signs Date Time Temp Pulse Resp B/P Pulse Ox O2 Delivery O2 Flow Rate FiO2 02/14/17 13:56 75 16 98 30 02/14/17 11:02 98.0 105/57 02/12/17 12:10 Mechanical Ventilator Intake and Output 02/13/17 02/13/17 02/14/17 15:00 23:00 07:00 Intake Total 790 ml 1000 ml Output Total 200 ml 250 ml Balance 590 ml 750 ml Exam Constitutional: non-verbal Head: atraumatic, normocephalic ENMT: other (Nasogastric tube) Neck: other (Tracheostomy), supple Respiratory: diminished breath sounds Cardiovascular: nl pulses Gastrointestinal: non-tender, soft, GT Neurological: unresponsive Results Result Diagram: 02/14/17 0530 02/14/17 0530 Results 24 hrs Laboratory Tests Test 02/13/17 17:35 02/13/17 21:37 02/14/17 00:56 02/14/17 05:15 Bedside Glucose 188 198 224 H 131 Test 02/14/17 05:30 02/14/17 12:11 White Blood Count 14.9 H Red Blood Count 2.90 L Hemoglobin 8.3 L Hematocrit 26.1 L Mean Corpuscular Volume 90.0 Mean Corpuscular Hemoglobin 28.6 L Mean Corpuscular Hemoglobin Concent 31.8 L Red Cell Distribution Width 14.4 Platelet Count 274 Mean Platelet Volume 9.9 Neutrophils % 82.2 H Lymphocytes % 9.2 L Monocytes % 5.8 Eosinophils % 0.3 Basophils % 0.1 Nucleated Red Blood Cells % 0.0 Neutrophils # 12.2 H Lymphocytes # 1.4 Monocytes # 0.9 Eosinophils # 0.1 Basophils # 0.0 Nucleated Red Blood Cells # 0.0 Sodium Level 136 Potassium Level 4.2 Chloride Level 89 L Carbon Dioxide Level 34 H Anion Gap 17 H Blood Urea Nitrogen 76 H Creatinine 2.66 H Glucose Level 126 Calcium Level 8.9 Bedside Glucose 152 Medications Medications Current Medications Ondansetron HCl (Zofran Inj) 4 mg Q6H PRN IV NAUSEA AND/OR VOMITING Last administered on 02/14/17 14:24; Admin Dose 4 MG; Start 12/02/16 at 22:30 Miscellaneous Information 1 ea NOTE XX ; Start 12/02/16 at 23:00 Glucose (Glutose) 15 gm Q15M PRN PO DECREASED GLUCOSE; Start 12/02/16 at 23:00 Glucose (Glutose) 22.5 gm Q15M PRN PO DECREASED GLUCOSE; Start 12/02/16 at 23: 00 Dextrose (D50w Syringe) 25 ml Q15M PRN IV DECREASED GLUCOSE Last administered on 01/26/17 05:21; Admin Dose 25 ML; Start 12/02/16 at 23:00 Dextrose (D50w Syringe) 50 ml Q15M PRN IV DECREASED GLUCOSE Last administered on 01/23/17 04:58; Admin Dose 50 ML; Start 12/02/16 at 23:00 Glucagon (Glucagen) 1 mg Q15M PRN IM DECREASED GLUCOSE; Start 12/02/16 at 23:00 Glucose (Glutose) 15 gm Q15M PRN BUCCAL DECREASED GLUCOSE; Start 12/02/16 at 23 :00 Acetaminophen (Tylenol Supp) 650 mg Q6H PRN [place] ELEVATED TEMPERATURE Last administered on 01/13/17 20:32; Admin Dose 650 MG; Start 12/09/16 at 17:00 Hydralazine HCl (Apresoline) 10 mg Q6H PRN IV SBP>150mm hg Last administered on 12/19/16 08:50; Admin Dose 10 MG; Start 12/11/16 at 10:30 Morphine Sulfate (morphine) 2 mg Q2H PRN IV PAIN LEVEL 4-7; Start 12/13/16 at 10 :00 Collagenase (Santyl) 1 applic DAILY TOP Last administered on 02/14/17 09:43; Admin Dose 1 APPLIC; Start 01/04/17 at 09:00 Metoprolol Tartrate (Lopressor) 5 mg Q4 PRN IV FOR H.R>110; Start 01/12/17 at 17:30 Acetaminophen (Tylenol Liquid) 650 mg Q6H PRN NGT PAIN AND OR ELEVATED TEMP Last administered on 02/03/17 17:37; Admin Dose 650 MG; Start 01/13/17 at 23:30 Acetaminophen/ Hydrocodone Bitart ([place] (5/325)) 1 tab Q6H PRN NGT PAIN LEVEL 4-7; Start 01/13/17 at 23:30 Levetiracetam (Keppra Liquid) 1,000 mg DAILY NGT Last administered on 02/14/17 09:43; Admin Dose 1,000 MG; Start 01/14/17 at 09:00 Meclizine HCl (Antivert) 25 mg TID PRN NGT dizziness; Start 01/13/17 at 20:00 Zolpidem Tartrate (Ambien) 5 mg HS PRN NGT INSOMNIA; Start 01/13/17 at 20:00 Docusate Sodium (Colace Liquid Cup) 100 mg BID NGT Last administered on 09:42; Admin Dose 100 MG; Start 01/13/17 at 21:00 Metoprolol Tartrate (Lopressor) 12.5 mg BID NGT Last administered on 02/13/17 08:30; Admin Dose 12.5 MG; Start 01/24/17 at 21:00 Nystatin 5 ml 5 ml Q6 PO Last administered on 02/14/17 12:14; Admin Dose 5 ML; Start 01/31/17 at 12:00 Cefepime HCl (Maxipime 1gm/50 ml (Pmx)) 50 ml @ 100 mls/hr DAILY IVPB Last administered on 02/14/17 09:42; Admin Dose 100 MLS/HR; Start 02/02/17 at 11:00 Tobramycin TOBRAMYCIN PER PHARMACY NOTE XX ; Start 02/04/17 at 20:30 Caspofungin/ Sodium Chloride (Cancidas/NS) 250 ml @ 250 mls/hr Q24H IVPB Last administered on 02/13/17 22:03; Admin Dose 250 MLS/HR; Start 02/05/17 at 22:00 Lansoprazole (Prevacid) 30 mg DAILY@06 GTB Last administered on 02/14/17 05:16 ; Admin Dose 30 MG; Start 02/09/17 at 06:00 Insulin Aspart (Novolog Insulin Pen) NOVOLOG *MODERATE* ALGORI... Q6 SC Last administered on 02/14/17 01:03; Admin Dose 6 UNIT; Start 02/09/17 at 18:00 Amiodarone HCl (Cordarone) 200 mg Q12 NGT Last administered on 02/14/17 09:43; Admin Dose 200 MG; Start 02/10/17 at 21:00 Apixaban (Eliquis) 2.5 mg BID PO Last administered on 02/14/17 09:43; Admin Dose 2.5 MG; Start 02/11/17 at 21:00 Insulin Glargine (Lantus) 46 unit DAILY@20 SC ; Start 02/14/17 at 20:00 Diagnostic Test (Pha) (Accu-Chek) 02 XX ; Start 02/15/17 at 02:00 Multivitamins (Thera-Plus) 5 ml DAILY GTB ; Start 02/14/17 at 15:00; Status UNV Zinc Sulfate (Zinc Sulfate) 220 mg DAILY GTB ; Start 7/3/17 at 15:00; Status UNV RADCHENKO,KMIBERLY Feb 14, 2017 14:51
[2017-02-14] MEDS: ZINC SULFATE 220 MG CAP GTB SCH (15:00)
[2017-02-14] MEDS ORDERED: Discontinue Glyburide, Glipizide, and/or Glimepiride prior to starting Insulin XX ONE (15:00)
[2017-02-14] MEDS ORDERED: MULTIVITAMINS 5 ML CUP GTB SCH (15:00)
[2017-02-14] MEDS: MULTIVITAMINS 30 ML CUP GTB SCH (17:29)
--- NOTE | 2017-02-14 19:25 | CONS ---
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 Blood cultures from HD catheter on 12/13/2016 are negative to date. 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 MRI on 12/06/2016 and bone scan on showed early OM of the distal phalanx of the left great toe and left fourth proximal phalanx. superficial swab grew inna only - s/p right pleural effusion s/p thoracentesis with .9L removed on 12/16/2016 - severe , EF 40-45% per TTE 12/17/16 - DM - Hgb A1c 8.7% - HTN associated with DM Tracheostomy site bleeding Plan: HD today, will conitnue HD on MWF s/p Tracheostomy, on ventilator pt will need HD palcement at a unit where they can do a HD for pt with tracheostomy and PEG tube placemen t- disability case manager has been instructed to set up [facility] pt has severe , very labile BP sometimes with HD will continue to follow up for HD need Consultation Date/Type/Reason Admit Date/Time Dec 02, 2016 at 21:01 Initial Consult Date Type of Consultation: NEPHROLOGY Referring Provider: VIET PARKER MD 24 HR Interval Summary Free Text/Dictation plan for HD today, afebrile, BP stable Exam/Review of Systems Vital Signs Vitals Vital Signs Date Time Temp Pulse Resp B/P Pulse Ox O2 Delivery O2 Flow Rate FiO2 02/14/17 17:42 76 16 98 30 02/14/17 15:25 97.4 96/50 02/12/17 12:10 Mechanical Ventilator Intake and Output 02/13/17 02/13/17 02/14/17 15:00 23:00 07:00 Intake Total 790 ml 1000 ml Output Total 200 ml 250 ml Balance 590 ml 750 ml Exam Constitutional: frail, non-verbal Neck: + tracheostomy Respiratory: crackles/rales Cardiovascular: nl pulses, regular rate and rhythm Gastrointestinal: non-tender, soft Musculoskeletal: nl extremities to inspection Extremities: No edema Neurological: confused, lethargic Skin: other (unstageable ulcer on coccyx) Results Result Diagram: 02/14/17 0530 02/14/17 0530 Results 24 hrs Laboratory Tests Test 02/13/17 21:37 02/14/17 00:56 02/14/17 05:15 02/14/17 05:30 Bedside Glucose 198 224 H 131 White Blood Count 14.9 H Red Blood Count 2.90 L Hemoglobin 8.3 L Hematocrit 26.1 L Mean Corpuscular Volume 90.0 Mean Corpuscular Hemoglobin 28.6 L Mean Corpuscular Hemoglobin Concent 31.8 L Red Cell Distribution Width 14.4 Platelet Count 274 Mean Platelet Volume 9.9 Neutrophils % 82.2 H Lymphocytes % 9.2 L Monocytes % 5.8 Eosinophils % 0.3 Basophils % 0.1 Nucleated Red Blood Cells % 0.0 Neutrophils # 12.2 H Lymphocytes # 1.4 Monocytes # 0.9 Eosinophils # 0.1 Basophils # 0.0 Nucleated Red Blood Cells # 0.0 Sodium Level 136 Potassium Level 4.2 Chloride Level 89 L Carbon Dioxide Level 34 H Anion Gap 17 H Blood Urea Nitrogen 76 H Creatinine 2.66 H Glucose Level 126 Calcium Level 8.9 Test 02/14/17 12:11 02/14/17 17:31 Bedside Glucose 152 164 Medications Medications Current Medications Ondansetron HCl (Zofran Inj) 4 mg Q6H PRN IV NAUSEA AND/OR VOMITING Last administered on 02/14/17t 14:24; Admin Dose 4 MG; Start 12/02/16 at 22:30 Miscellaneous Information 1 ea NOTE XX ; Start 12/02/16 at 23:00 Glucose (Glutose) 15 gm Q15M PRN PO DECREASED GLUCOSE; Start 12/02/16 at 23:00 Glucose (Glutose) 22.5 gm Q15M PRN PO DECREASED GLUCOSE; Start 12/02/16 at 23: 00 Dextrose (D50w Syringe) 25 ml Q15M PRN IV DECREASED GLUCOSE Last administered on 01/26/17 05:21; Admin Dose 25 ML; Start 12/02/16 at 23:00 Dextrose (D50w Syringe) 50 ml Q15M PRN IV DECREASED GLUCOSE Last administered on 01/23/17 04:58; Admin Dose 50 ML; Start 12/02/16 at 23:00 Glucagon (Glucagen) 1 mg Q15M PRN IM DECREASED GLUCOSE; Start 12/02/16 at 23:00 Glucose (Glutose) 15 gm Q15M PRN BUCCAL DECREASED GLUCOSE; Start 12/02/16 at 23 :00 Acetaminophen (Tylenol Supp) 650 mg Q6H PRN [place] ELEVATED TEMPERATURE Last administered on 01/13/17 20:32; Admin Dose 650 MG; Start 12/09/16 at 17:00 Hydralazine HCl (Apresoline) 10 mg Q6H PRN IV SBP>150mm hg Last administered on 12/19/16 08:50; Admin Dose 10 MG; Start 12/11/16 at 10:30 Morphine Sulfate (morphine) 2 mg Q2H PRN IV PAIN LEVEL 4-7; Start 12/13/16 at 10 :00 Collagenase (Santyl) 1 applic DAILY TOP Last administered on 02/14/17 09:43; Admin Dose 1 APPLIC; Start 01/04/17 at 09:00 Metoprolol Tartrate (Lopressor) 5 mg Q4 PRN IV FOR H.R>110; Start 01/12/17 at 17:30 Acetaminophen (Tylenol Liquid) 650 mg Q6H PRN NGT PAIN AND OR ELEVATED TEMP Last administered on 02/03/17 17:37; Admin Dose 650 MG; Start 01/13/17 at 23:30 Acetaminophen/ Hydrocodone Bitart ([place] (5/325)) 1 tab Q6H PRN NGT PAIN LEVEL 4-7; Start 01/13/17 at 23:30 Levetiracetam (Keppra Liquid) 1,000 mg DAILY NGT Last administered on 02/14/17 09:43; Admin Dose 1,000 MG; Start 01/14/17 at 09:00 Meclizine HCl (Antivert) 25 mg TID PRN NGT dizziness; Start 01/13/17 at 20:00 Zolpidem Tartrate (Ambien) 5 mg HS PRN NGT INSOMNIA; Start 01/13/17 at 20:00 Docusate Sodium (Colace Liquid Cup) 100 mg BID NGT Last administered on 09:42; Admin Dose 100 MG; Start 01/13/17 at 21:00 Metoprolol Tartrate (Lopressor) 12.5 mg BID NGT Last administered on 02/13/17 08:30; Admin Dose 12.5 MG; Start 01/24/17 at 21:00 Nystatin 5 ml 5 ml Q6 PO Last administered on 02/14/17 17:45; Admin Dose 5 ML; Start 01/31/17 at 12:00 Cefepime HCl (Maxipime 1gm/50 ml (Pmx)) 50 ml @ 100 mls/hr DAILY IVPB Last administered on 02/14/17 09:42; Admin Dose 100 MLS/HR; Start 02/02/17 at 11:00 Tobramycin TOBRAMYCIN PER PHARMACY NOTE XX ; Start 02/04/17 at 20:30 Caspofungin/ Sodium Chloride (Cancidas/NS) 250 ml @ 250 mls/hr Q24H IVPB Last administered on 02/13/17 22:03; Admin Dose 250 MLS/HR; Start 02/05/17 at 22:00 Lansoprazole (Prevacid) 30 mg DAILY@06 GTB Last administered on 02/14/17 05:16 ; Admin Dose 30 MG; Start 02/09/17 at 06:00 Amiodarone HCl (Cordarone) 200 mg Q12 NGT Last administered on 02/14/17 09:43; Admin Dose 200 MG; Start 02/10/17 at 21:00 Apixaban (Eliquis) 2.5 mg BID PO Last administered on 02/14/17 09:43; Admin Dose 2.5 MG; Start 02/11/17 at 21:00 Diagnostic Test (Pha) (Accu-Chek) 1 ea 02 XX ; Start 02/15/17 at 02:00 Zinc Sulfate (Zinc Sulfate) 220 mg DAILY GTB Last administered on 02/14/17 15: 00; Admin Dose 220 MG; Start 02/14/17 at 15:00 Insulin Aspart (Novolog Insulin Pen) NOVOLOG *MILD* ALGORITHM Q4 SC Last administered on 02/14/17 17:44; Admin Dose 1 UNIT; Start 02/14/17 at 17:00 Insulin Glargine (Lantus) 46 unit DAILY@20 SC ; Start 02/14/17 at 20:00 Multivitamins (Multivitamin) 30 ml DAILY GTB Last administered on 02/14/17 17: 29; Admin Dose 30 ML; Start 02/14/17 at 16:30 TASHIA MCGARRY MD Feb 14, 2017 19:25
[2017-02-14] MEDS ORDERED: INSULIN GLARGINE [LANtus] 3 ML PEN SC SCH (20:00)
[2017-02-14] MEDS: INSULIN GLARGINE [LANtus] 3 ML PEN SC SCH (20:24)
[2017-02-14] MEDS: AMIODARONE 200 MG TAB GTB SCH (21:15)
[2017-02-14] MEDS: DOCUSATE SODIUM 10 MG/ML (10ML CUP) GTB SCH (21:15)
[2017-02-14] MEDS: APIXABAN 5 MG TABLET GTB SCH (21:15)
[2017-02-14] MEDS: CASPOFUNGIN 50 MG in SOD CHLORIDE 0.9% 250 ML IVPB SCH (21:19)
[2017-02-15] VITALS (24 sets, daily range): BP systolic 105–139; BP diastolic 54–77; PULSE 60–71; RESP 16–20
[2017-02-15] MEDS: NYSTATIN SUSP 5 ML CUP PO SCH ×4 (00:25→17:22)
[2017-02-15] MEDS: INSULIN ASPART [NOVOLOG] 3 ML PEN SC SCH ×6 (00:44→20:45)
[2017-02-15] MEDS ORDERED: ACCU-CHEK XX SCH ×2 (02:00)
[2017-02-15] MEDS: ALBUTEROL 18 GM INHALER INH SCH ×4 (02:02→20:00)
[2017-02-15] MEDS: LANSOPRAZOLE 30 MG CAP GTB SCH (05:21)
[2017-02-15 06:56] LABS: ADD SCAN DIFF NO
[2017-02-15 07:02] LABS: BASOPHILS % 0.2 % (0.0-2.0); EOSINOPHILS # 0.1 10^3/ul (0.0-0.5); EOSINOPHILS % 0.3 % (0.0-7.0); HEMATOCRIT 24.2 % (42.0-52.0); HEMOGLOBIN 7.6 g/dl (14.0-18.0); LYMPHOCYTES % 6.6 % (15.0-51.0); MEAN CORPUSCULAR HEMOGLOBIN 28.5 pg (29.0-33.0); MEAN CORPUSCULAR HGB CONC 31.4 g/dl (32.0-37.0); MEAN CORPUSCULAR VOLUME 90.6 fl (82.0-101.0); MEAN PLATELET VOLUME 10.2 fl (7.4-10.4); MONOCYTES % 6.7 % (0.0-11.0); NEUTROPHIL # 13.2 10^3/ul (1.6-7.5); NEUTROPHILS % 84.6 % (39.0-77.0); PLATELET COUNT 283 10^3/UL (140-415); RED BLOOD COUNT 2.67 10^6/ul (4.70-6.10); RED CELL DISTRIBUTION WIDTH 14.6 % (11.5-14.5); WHITE BLOOD COUNT 15.6 10^3/ul (4.8-10.8)
[2017-02-15 07:28] LABS: CREATININE 2.03 mg/dl (0.61-1.24); POTASSIUM 4.8 mmol/L (3.5-5.1)
[2017-02-15] MEDS: DOCUSATE SODIUM 10 MG/ML (10ML CUP) GTB SCH ×2 (09:31→20:42)
[2017-02-15] MEDS: AMIODARONE 200 MG TAB GTB SCH ×2 (09:31→20:42)
[2017-02-15] MEDS: ZINC SULFATE 220 MG CAP GTB SCH (09:32)
[2017-02-15] MEDS: APIXABAN 5 MG TABLET GTB SCH ×2 (09:32→20:41)
[2017-02-15] MEDS: COLLAGENASE 30 GM TUBE TOP SCH (09:32)
[2017-02-15] MEDS: METOPROLOL 25 MG TAB NGT SCH ×2 (09:32→20:41)
[2017-02-15] MEDS: LEVETIRACETAM (100 MG/ML) 5ML CUP NGT SCH (09:32)
[2017-02-15] MEDS: CEFEPIME 1GM/50 ML (PMX) 50 ML IVPB SCH (09:32)
[2017-02-15] MEDS: MULTIVITAMINS 30 ML CUP GTB SCH (09:32)
--- NOTE | 2017-02-15 11:01 | PN ---
Date/Time of Note Date/Time of Note DATE: 02/15/17 TIME: 10:55 Assessment/Plan VTE Prophylaxis VTE Prophylaxis Intervention: other Lines/Catheters IV Catheter Type (from [facility]): Saline Lock Urinary Cath still in place: Yes Reason Cath still needed: urinary retention Assessment/Plan Assessment/Plan - Possible recurrent sepsis, resolving. continue antibiotics per ID. Dr Dallas group is following infection disease consultation. - Dysphagia. S/p G-tube by Dr. Smith. Continue G-tube feeding monitor residual. - Anemia of blood loss. Continue to monitor H&H, transfuse as needed. - Status post cardiopulmonary arrest on 12/09/2016 and 01/08/2017. Continue ventilatory support. - Anoxic encephalopathy. Continue Keppra. - Status post tracheostomy on 01/23/2017. Continue tracheostomy care, wound consult. - End-stage renal disease. Continue hemodialysis per nephrology. - Paroxysmal atrial fibrillation. Eliquis is currently held due to bleeding. - Diabetes mellitus type 2. Continue Lantus and NovoLog with sliding scale coverage with Accu-Cheks q. 4 hours. - Diabetic foot ulcer. Continue current wound care. - Osteomyelitis of the distal phalanx of the great left toe. Completed treatment for antibiotics. - DTI left heel - dietary recommendations - off loading - cont zinc/MVI - wound care Continue sequential compression device for deep venous thrombosis prophylaxis and Protonix for peptic ulcer disease prophylaxis. Case management for [facility] facility placement and arrangement for hemodialysis. Further recommendations based on clinical course. Plan of care discussed with Dr. Heredia. Subjective 24 Hr Interval Summary Subjective hx not possible: pt non-verbal Constitutional: requiring IVF, requiring O2 Exam/Review of Systems Vital Signs Vitals Vital Signs Date Time Temp Pulse Resp B/P Pulse Ox O2 Delivery O2 Flow Rate FiO2 02/15/17 09:41 70 16 98 30 02/15/17 08:28 98.0 125/77 02/12/17 12:10 Mechanical Ventilator Intake and Output 02/14/17 02/14/17 02/15/17 15:00 23:00 07:00 Intake Total 700 ml 995 ml 760 ml Output Total 2700 ml 200 ml Balance -2000 ml 795 ml 760 ml Exam Constitutional: non-verbal Respiratory: clear to auscultation, normal air movement, other (trach intact- no bleeding noted) Cardiovascular: nl pulses, regular rate and rhythm Gastrointestinal: other (gt intact, tolerates feeding), soft Musculoskeletal: muscle weakness Neurological: unresponsive Skin: other Results Result Diagram: 02/15/17 0605 02/15/17 0605 Results 24 hrs Laboratory Tests Test 02/14/17 12:11 02/14/17 17:31 02/14/17 20:18 02/15/17 00:42 Bedside Glucose 152 164 200 209 Test 02/15/17 04:16 02/15/17 05:19 02/15/17 06:05 02/15/17 07:59 Bedside Glucose 219 206 211 White Blood Count 15.6 H Red Blood Count 2.67 L Hemoglobin 7.6 L Hematocrit 24.2 L Mean Corpuscular Volume 90.6 Mean Corpuscular Hemoglobin 28.5 L Mean Corpuscular Hemoglobin Concent 31.4 L Red Cell Distribution Width 14.6 H Platelet Count 283 Mean Platelet Volume 10.2 Neutrophils % 84.6 H Lymphocytes % 6.6 L Monocytes % 6.7 Eosinophils % 0.3 Basophils % 0.2 Nucleated Red Blood Cells % 0.0 Neutrophils # 13.2 H Lymphocytes # 1.0 Monocytes # 1.0 H Eosinophils # 0.1 Basophils # 0.0 Nucleated Red Blood Cells # 0.0 Sodium Level 139 Potassium Level 4.8 Chloride Level 93 L Carbon Dioxide Level 28 Anion Gap 23 H Blood Urea Nitrogen 60 H Creatinine 2.03 H Glucose Level 196 Calcium Level 9.0 Medications Medications Current Medications Ondansetron HCl (Zofran Inj) 4 mg Q6H PRN IV NAUSEA AND/OR VOMITING Last administered on 02/14/17 14:24; Admin Dose 4 MG; Start 12/02/16 at 22:30 Miscellaneous Information 1 ea NOTE XX ; Start 12/02/16 at 23:00 Glucose (Glutose) 15 gm Q15M PRN PO DECREASED GLUCOSE; Start 12/02/16 at 23:00 Glucose (Glutose) 22.5 gm Q15M PRN PO DECREASED GLUCOSE; Start 12/02/16 at 23: 00 Dextrose (D50w Syringe) 25 ml Q15M PRN IV DECREASED GLUCOSE Last administered on 01/26/17 05:21; Admin Dose 25 ML; Start 12/02/16 at 23:00 Dextrose (D50w Syringe) 50 ml Q15M PRN IV DECREASED GLUCOSE Last administered on 01/23/17 04:58; Admin Dose 50 ML; Start 12/02/16 at 23:00 Glucagon (Glucagen) 1 mg Q15M PRN IM DECREASED GLUCOSE; Start 12/02/16 at 23:00 Glucose (Glutose) 15 gm Q15M PRN BUCCAL DECREASED GLUCOSE; Start 12/02/16 at 23 :00 Acetaminophen (Tylenol Supp) 650 mg Q6H PRN [place] ELEVATED TEMPERATURE Last administered on 01/13/17 20:32; Admin Dose 650 MG; Start 12/09/16 at 17:00 Hydralazine HCl (Apresoline) 10 mg Q6H PRN IV SBP>150mm hg Last administered on 12/19/16 08:50; Admin Dose 10 MG; Start 12/11/16 at 10:30 Morphine Sulfate (morphine) 2 mg Q2H PRN IV PAIN LEVEL 4-7; Start 12/13/16 at 10 :00 Collagenase (Santyl) 1 applic DAILY TOP Last administered on 02/15/17 09:32; Admin Dose 1 APPLIC; Start 01/04/17 at 09:00 Metoprolol Tartrate (Lopressor) 5 mg Q4 PRN IV FOR H.R>110; Start 01/12/17 at 17:30 Acetaminophen (Tylenol Liquid) 650 mg Q6H PRN NGT PAIN AND OR ELEVATED TEMP Last administered on 02/03/17 17:37; Admin Dose 650 MG; Start 01/13/17 at 23:30 Acetaminophen/ Hydrocodone Bitart ([place] (5/325)) 1 tab Q6H PRN NGT PAIN LEVEL 4-7; Start 01/13/17 at 23:30 Levetiracetam (Keppra Liquid) 1,000 mg DAILY NGT Last administered on 02/15/17 09:32; Admin Dose 1,000 MG; Start 01/14/17 at 09:00 Meclizine HCl (Antivert) 25 mg TID PRN NGT dizziness; Start 01/13/17 at 20:00 Zolpidem Tartrate (Ambien) 5 mg HS PRN NGT INSOMNIA; Start 01/13/17 at 20:00 Metoprolol Tartrate (Lopressor) 12.5 mg BID NGT Last administered on 02/15/17 09:32; Admin Dose 12.5 MG; Start 01/24/17 at 21:00 Nystatin 5 ml 5 ml Q6 PO Last administered on 02/15/17 05:21; Admin Dose 5 ML; Start 01/31/17 at 12:00 Cefepime HCl (Maxipime 1gm/50 ml (Pmx)) 50 ml @ 100 mls/hr DAILY IVPB Last administered on 02/15/17 09:32; Admin Dose 100 MLS/HR; Start 02/02/17 at 11:00 Tobramycin TOBRAMYCIN PER PHARMACY NOTE XX ; Start 02/04/17 at 20:30 Caspofungin/ Sodium Chloride (Cancidas/NS) 250 ml @ 250 mls/hr Q24H IVPB Last administered on 02/14/17 21:19; Admin Dose 250 MLS/HR; Start 02/05/17 at 22:00 Lansoprazole (Prevacid) 30 mg DAILY@06 GTB Last administered on 02/15/17 05:21 ; Admin Dose 30 MG; Start 02/09/17 at 06:00 Diagnostic Test (Pha) (Accu-Chek) 02 XX ; Start 02/15/17 at 02:00 Zinc Sulfate (Zinc Sulfate) 220 mg DAILY GTB Last administered on 02/15/17 09: 32; Admin Dose 220 MG; Start 02/14/17 at 15:00 Insulin Aspart (Novolog Insulin Pen) NOVOLOG *MILD* ALGORITHM Q4 SC Last administered on 02/15/17 08:02; Admin Dose 2 UNIT; Start 02/14/17 at 17:00 Insulin Glargine (Lantus) 46 unit DAILY@20 SC Last administered on 02/14/17 20: 24; Admin Dose 46 UNIT; Start 02/14/17 at 20:00 Multivitamins (Multivitamin) 30 ml DAILY GTB Last administered on 02/15/17 09: 32; Admin Dose 30 ML; Start 02/14/17 at 16:30 Docusate Sodium (Colace Liquid Cup) 100 mg BID GTB Last administered on 09:31; Admin Dose 100 MG; Start 02/14/17 at 21:00 Amiodarone HCl (Cordarone) 200 mg Q12 GTB Last administered on 02/15/17 09:31; Admin Dose 200 MG; Start 02/14/17 at 21:00 Apixaban (Eliquis) 2.5 mg BID GTB Last administered on 02/15/17 09:32; Admin Dose 2.5 MG; Start 02/14/17 at 21:00 YULIANA SIMMONS Feb 15, 2017 11:00
--- NOTE | 2017-02-15 13:00 | CONS ---
Date/Time of Note Date/Time of Note DATE: 02/15/17 TIME: 12:58 Assessment/Plan Assessment/Plan Additional Assessment/Plan 1. Atrial fibrillation-Having episodes of PAF with reasonable rate control. Currently in SR - rate controlled - will follow - rate controlled on tele now - IN SINUS NOW 2. Hypotension-borderline and labile - stable overall 3. Abnormal electrocardiogram with inferolateral T-wave inversions.- NO CP - no intervention planned 4. Respiratory failure-s/p trach placement - on vent - resp rx in place 5. Nonhealing toe ulceration-vascular following 6. Peripheral arterial disease by arterial ultrasound of the lower extremities this admission. 7. Diabetes mellitus- on meds,, keep euglycemic - good glucose level 8. Fevers- resolved, on anti-bx now 9. Positive troponin-downtrended - no intervention planned 10.Bradycardia-improved/stable 11.-severe by echo 12.Cardiomyopathy-EF 40-45% by echo/36% by stress with no ischemia but positive scar. EF <30% by echo post arrest 14.Encephalopathy-anoxic 15. s/p cardiopulmonary arrest 01/08 Consultation Date/Type/Reason Admit Date/Time Dec 02, 2016 at 21:01 Initial Consult Date 12/03/16 Type of Consultation: NEPHROLOGY Referring Provider: VIET PARKER MD 24 HR Interval Summary Free Text/Dictation NO acute events - BP in good range - no CP - doubt ischemia. ROS: No fever, no chills, no nausea, no vomiting, no diarrhea/constipation No recent weight changes No chest pain, no PND, no orthopnea No dizziness, blurred vision No thirst, no heat or cold intolerance (per nurse) Exam/Review of Systems Vital Signs Vitals Vital Signs Date Time Temp Pulse Resp B/P Pulse Ox O2 Delivery O2 Flow Rate FiO2 02/15/17 12:33 64 02/15/17 11:15 16 98 30 02/15/17 10:56 99.1 139/64 02/12/17 12:10 Mechanical Ventilator Intake and Output 02/14/17 02/14/17 02/15/17 15:00 23:00 07:00 Intake Total 700 ml 995 ml 760 ml Output Total 2700 ml 200 ml Balance -2000 ml 795 ml 760 ml Exam General: WN/WD/NAD, AOx 0 HEENT: Unicetric/atraumatic/EOMI (does not follow commands) NECK: trach Lymph: no lymphadenopathy HEART: regular with no S3, II/ systolic murmur at apex LUNGS: Coarse sounds ABD: soft, NT, ND, +BS : Intact Neuro: non focal SKIN: chronic changes EXT: trace edema Results Result Diagram: 02/15/17 0605 02/15/17 0605 Results 24 hrs Laboratory Tests Test 02/14/17 17:31 02/14/17 20:18 02/15/17 00:42 02/15/17 04:16 Bedside Glucose 164 200 209 219 Test 02/15/17 05:19 02/15/17 06:05 02/15/17 07:59 02/15/17 12:12 Bedside Glucose 206 211 223 H White Blood Count 15.6 H Red Blood Count 2.67 L Hemoglobin 7.6 L Hematocrit 24.2 L Mean Corpuscular Volume 90.6 Mean Corpuscular Hemoglobin 28.5 L Mean Corpuscular Hemoglobin Concent 31.4 L Red Cell Distribution Width 14.6 H Platelet Count 283 Mean Platelet Volume 10.2 Neutrophils % 84.6 H Lymphocytes % 6.6 L Monocytes % 6.7 Eosinophils % 0.3 Basophils % 0.2 Nucleated Red Blood Cells % 0.0 Neutrophils # 13.2 H Lymphocytes # 1.0 Monocytes # 1.0 H Eosinophils # 0.1 Basophils # 0.0 Nucleated Red Blood Cells # 0.0 Sodium Level 139 Potassium Level 4.8 Chloride Level 93 L Carbon Dioxide Level 28 Anion Gap 23 H Blood Urea Nitrogen 60 H Creatinine 2.03 H Glucose Level 196 Calcium Level 9.0 Medications Medications Current Medications Ondansetron HCl (Zofran Inj) 4 mg Q6H PRN IV NAUSEA AND/OR VOMITING Last administered on 02/14/17 14:24; Admin Dose 4 MG; Start 12/02/16 at 22:30 Miscellaneous Information 1 ea NOTE XX ; Start 12/02/16 at 23:00 Glucose (Glutose) 15 gm Q15M PRN PO DECREASED GLUCOSE; Start 12/02/16 at 23:00 Glucose (Glutose) 22.5 gm Q15M PRN PO DECREASED GLUCOSE; Start 12/02/16 at 23: 00 Dextrose (D50w Syringe) 25 ml Q15M PRN IV DECREASED GLUCOSE Last administered on 01/26/17 05:21; Admin Dose 25 ML; Start 12/02/16 at 23:00 Dextrose (D50w Syringe) 50 ml Q15M PRN IV DECREASED GLUCOSE Last administered on 01/23/17 04:58; Admin Dose 50 ML; Start 12/02/16 at 23:00 Glucagon (Glucagen) 1 mg Q15M PRN IM DECREASED GLUCOSE; Start 12/02/16 at 23:00 Glucose (Glutose) 15 gm Q15M PRN BUCCAL DECREASED GLUCOSE; Start 12/02/16 at 23 :00 Acetaminophen (Tylenol Supp) 650 mg Q6H PRN [place] ELEVATED TEMPERATURE Last administered on 01/13/17 20:32; Admin Dose 650 MG; Start 12/09/16 at 17:00 Hydralazine HCl (Apresoline) 10 mg Q6H PRN IV SBP>150mm hg Last administered on 12/19/16 08:50; Admin Dose 10 MG; Start 12/11/16 at 10:30 Morphine Sulfate (morphine) 2 mg Q2H PRN IV PAIN LEVEL 4-7; Start 12/13/16 at 10 :00 Collagenase (Santyl) 1 applic DAILY TOP Last administered on 02/15/17 09:32; Admin Dose 1 APPLIC; Start 01/04/17 at 09:00 Metoprolol Tartrate (Lopressor) 5 mg Q4 PRN IV FOR H.R>110; Start 01/12/17 at 17:30 Acetaminophen (Tylenol Liquid) 650 mg Q6H PRN NGT PAIN AND OR ELEVATED TEMP Last administered on 02/03/17 17:37; Admin Dose 650 MG; Start 01/13/17 at 23:30 Acetaminophen/ Hydrocodone Bitart ([place] (5/325)) 1 tab Q6H PRN NGT PAIN LEVEL 4-7; Start 01/13/17 at 23:30 Levetiracetam (Keppra Liquid) 1,000 mg DAILY NGT Last administered on 02/15/17 09:32; Admin Dose 1,000 MG; Start 01/14/17 at 09:00 Meclizine HCl (Antivert) 25 mg TID PRN NGT dizziness; Start 01/13/17 at 20:00 Zolpidem Tartrate (Ambien) 5 mg HS PRN NGT INSOMNIA; Start 01/13/17 at 20:00 Metoprolol Tartrate (Lopressor) 12.5 mg BID NGT Last administered on 02/15/17 09:32; Admin Dose 12.5 MG; Start 01/24/17 at 21:00 Nystatin 5 ml 5 ml Q6 PO Last administered on 02/15/17 05:21; Admin Dose 5 ML; Start 01/31/17 at 12:00 Cefepime HCl (Maxipime 1gm/50 ml (Pmx)) 50 ml @ 100 mls/hr DAILY IVPB Last administered on 02/15/17 09:32; Admin Dose 100 MLS/HR; Start 02/02/17 at 11:00 Tobramycin TOBRAMYCIN PER PHARMACY NOTE XX ; Start 02/04/17 at 20:30 Caspofungin/ Sodium Chloride ([place]anc[place]/NS) 250 ml @ 250 mls/hr Q24H IVPB Last administered on 02/14/17 21:19; Admin Dose 250 MLS/HR; Start 02/05/17 at 22:00 Lansoprazole (Prevacid) 30 mg DAILY@06 GTB Last administered on 02/15/17 05:21 ; Admin Dose 30 MG; Start 02/09/17 at 06:00 Diagnostic Test (Pha) (Accu-Chek) 1 ea 02 XX ; Start 02/15/17 at 02:00 Zinc Sulfate (Zinc Sulfate) 220 mg DAILY GTB Last administered on 02/15/17 09: 32; Admin Dose 220 MG; Start 02/14/17 at 15:00 Insulin Aspart (Novolog Insulin Pen) NOVOLOG *MILD* ALGORITHM Q4 SC Last administered on 02/15/17 12:33; Admin Dose 3 UNIT; Start 02/14/17 at 17:00 Insulin Glargine (Lantus) 46 unit DAILY@20 SC Last administered on 02/14/17 20: 24; Admin Dose 46 UNIT; Start 02/14/17 at 20:00 Multivitamins (Multivitamin) 30 ml DAILY GTB Last administered on 02/15/17 09: 32; Admin Dose 30 ML; Start 02/14/17 at 16:30 Docusate Sodium (Colace Liquid Cup) 100 mg BID GTB Last administered on 09:31; Admin Dose 100 MG; Start 02/14/17 at 21:00 Amiodarone HCl (Cordarone) 200 mg Q12 GTB Last administered on 02/15/17 09:31; Admin Dose 200 MG; Start 02/14/17 at 21:00 Apixaban (Eliquis) 2.5 mg BID GTB Last administered on 02/15/17 09:32; Admin Dose 2.5 MG; Start 02/14/17 at 21:00 DAVE NICOLE MD Feb 15, 2017 12:59
--- NOTE | 2017-02-15 14:02 | CONS ---
Date/Time of Note Date/Time of Note DATE: 02/15/17 TIME: 14:01 Assessment/Plan Assessment/Plan Chief Complaint/Hosp Course -- recurrent cardiopulmonary arrest on 12/09/2016 and on 01/08/2017 possible recurrent sepsis due to pneumonia - recurrent cardiopulmonary arrest on 12/09/2016 and on 01/08/2017 - s/p sepsis due to possible tracheobronchitis/pneumonia - recurrent pneumonia due to pseudomonas - thrush, refractory to nystatin - funguria - bleeding from trach site - s/p recurrent sepsis - 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 Blood cultures from HD catheter on 12/13/2016 are negative to date. 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 MRI on 12/06/2016 and bone scan on showed early OM of the distal phalanx of the left great toe and left fourth proximal phalanx. superficial swab grew inna only. At present, no e/o persistent infection - recurrent pleural effusion - s/p right pleural effusion s/p thoracentesis with .9L removed on 12/16/2016; ( Note: there is no pleural fluid cx since orders were placed after Right thoracentesis, and Left thoracentesis was not performed on 12/17/16 d/t insufficient fluid) - ARANZA on CKD that progressed to ESRD and started on HD from 12/09/2016 - oliguria - improved - A fib -> PAF - small nonreversible perfusion abnormality in the inferoapical and inferior carver; EF 36% per Lexiscan 12/24/2016 - severe , EF 40-45% per TTE 12/17/16 - DM - Hgb A1c 8.7% - HTN associated with DM - acute encephalopathy with anoxic brain injury - unstageable decubitus ulcer of coccyx, no evidence of infection - dysphagia s/p G-tube placement 02/08/2017 NOTE: Pt completed 6 weeks (12/03/2016-01/15/2017) of antibiotics to treat early OM of the distal phalanx of the left great toe and left fourth proximal phalanx ; s/p pip/tazo 12/03/16-01/08/17; linezolid 01/08/17-01/20/17; caspofungin 01/12/17-01/21/17, restarted - s/p tobramycin (02/04/2017- 02/15/17) for pseudomonas recommendations: - f/u studies - monitor wbc - check procalc - continue renally dosed cefepime (restarted on 02/02/2017-) - continue empiric caspofungin (02/04/2017-) - continue nystatin for thrush - wound care of the coccyx and upper back Problems: Consultation Date/Type/Reason Admit Date/Time Dec 02, 2016 at 21:01 Type of Consultation: id Referring Provider: VIET PARKER MD Exam/Review of Systems Vital Signs Vitals Vital Signs Date Time Temp Pulse Resp B/P Pulse Ox O2 Delivery O2 Flow Rate FiO2 02/15/17 13:23 74 16 98 30 02/15/17 10:56 99.1 139/64 02/12/17 12:10 Mechanical Ventilator Intake and Output 02/14/17 02/14/17 02/15/17 14:59 22:59 06:59 Intake Total 700 ml 995 ml 760 ml Output Total 2700 ml 200 ml Balance -2000 ml 795 ml 760 ml Results Result Diagram: 02/15/17 0605 02/15/17 0605 Results 24 hrs Laboratory Tests Test 02/14/17 17:31 02/14/17 20:18 02/15/17 00:42 02/15/17 04:16 Bedside Glucose 164 200 209 219 Test 02/15/17 05:19 02/15/17 06:05 02/15/17 07:59 02/15/17 12:12 Bedside Glucose 206 211 223 H White Blood Count 15.6 H Red Blood Count 2.67 L Hemoglobin 7.6 L Hematocrit 24.2 L Mean Corpuscular Volume 90.6 Mean Corpuscular Hemoglobin 28.5 L Mean Corpuscular Hemoglobin Concent 31.4 L Red Cell Distribution Width 14.6 H Platelet Count 283 Mean Platelet Volume 10.2 Neutrophils % 84.6 H Lymphocytes % 6.6 L Monocytes % 6.7 Eosinophils % 0.3 Basophils % 0.2 Nucleated Red Blood Cells % 0.0 Neutrophils # 13.2 H Lymphocytes # 1.0 Monocytes # 1.0 H Eosinophils # 0.1 Basophils # 0.0 Nucleated Red Blood Cells # 0.0 Sodium Level 139 Potassium Level 4.8 Chloride Level 93 L Carbon Dioxide Level 28 Anion Gap 23 H Blood Urea Nitrogen 60 H Creatinine 2.03 H Glucose Level 196 Calcium Level 9.0 Medications Medications Current Medications Ondansetron HCl (Zofran Inj) 4 mg Q6H PRN IV NAUSEA AND/OR VOMITING Last administered on 02/14/17 14:24; Admin Dose 4 MG; Start 12/02/16 at 22:30 Miscellaneous Information 1 ea NOTE XX ; Start 12/02/16 at 23:00 Glucose (Glutose) 15 gm Q15M PRN PO DECREASED GLUCOSE; Start 12/02/16 at 23:00 Glucose (Glutose) 22.5 gm Q15M PRN PO DECREASED GLUCOSE; Start 12/02/16 at 23: 00 Dextrose (D50w Syringe) 25 ml Q15M PRN IV DECREASED GLUCOSE Last administered on 01/26/17 05:21; Admin Dose 25 ML; Start 12/02/16 at 23:00 Dextrose (D50w Syringe) 50 ml Q15M PRN IV DECREASED GLUCOSE Last administered on 01/23/17 04:58; Admin Dose 50 ML; Start 12/02/16 at 23:00 Glucagon (Glucagen) 1 mg Q15M PRN IM DECREASED GLUCOSE; Start 12/02/16 at 23:00 Glucose (Glutose) 15 gm Q15M PRN BUCCAL DECREASED GLUCOSE; Start 12/02/16 at 23 :00 Acetaminophen (Tylenol Supp) 650 mg Q6H PRN [place] ELEVATED TEMPERATURE Last administered on 01/13/17 20:32; Admin Dose 650 MG; Start 12/09/16 at 17:00 Hydralazine HCl (Apresoline) 10 mg Q6H PRN IV SBP>150mm hg Last administered on 12/19/16 08:50; Admin Dose 10 MG; Start 12/11/16 at 10:30 Morphine Sulfate (morphine) 2 mg Q2H PRN IV PAIN LEVEL 4-7; Start 12/13/16 at 10 :00 Collagenase (Santyl) 1 applic DAILY TOP Last administered on 02/15/17 09:32; Admin Dose 1 APPLIC; Start 01/04/17 at 09:00 Metoprolol Tartrate (Lopressor) 5 mg Q4 PRN IV FOR H.R>110; Start 01/12/17 at 17:30 Acetaminophen (Tylenol Liquid) 650 mg Q6H PRN NGT PAIN AND OR ELEVATED TEMP Last administered on 02/03/17 17:37; Admin Dose 650 MG; Start 01/13/17 at 23:30 Acetaminophen/ Hydrocodone Bitart ([place] (5/325)) 1 tab Q6H PRN NGT PAIN LEVEL 4-7; Start 01/13/17 at 23:30 Levetiracetam (Keppra Liquid) 1,000 mg DAILY NGT Last administered on 02/15/17 09:32; Admin Dose 1,000 MG; Start 01/14/17 at 09:00 Meclizine HCl (Antivert) 25 mg TID PRN NGT dizziness; Start 01/13/17 at 20:00 Zolpidem Tartrate (Ambien) 5 mg HS PRN NGT INSOMNIA; Start 01/13/17 at 20:00 Metoprolol Tartrate (Lopressor) 12.5 mg BID NGT Last administered on 02/15/17 09:32; Admin Dose 12.5 MG; Start 01/24/17 at 21:00 Nystatin 5 ml 5 ml Q6 PO Last administered on 02/15/17 12:57; Admin Dose 5 ML; Start 01/31/17 at 12:00 Cefepime HCl (Maxipime 1gm/50 ml (Pmx)) 50 ml @ 100 mls/hr DAILY IVPB Last administered on 02/15/17 09:32; Admin Dose 100 MLS/HR; Start 02/02/17 at 11:00 Tobramycin TOBRAMYCIN PER PHARMACY NOTE XX ; Start 02/04/17 at 20:30 Caspofungin/ Sodium Chloride ([place]/NS) 250 ml @ 250 mls/hr Q24H IVPB Last administered on 02/14/17 21:19; Admin Dose 250 MLS/HR; Start 02/05/17 at 22:00 Lansoprazole (Prevacid) 30 mg DAILY@06 GTB Last administered on 02/15/17 05:21 ; Admin Dose 30 MG; Start 02/09/17 at 06:00 Diagnostic Test (Pha) (Accu-Chek) 1 ea 02 XX ; Start 02/15/17 at 02:00 Zinc Sulfate (Zinc Sulfate) 220 mg DAILY GTB Last administered on 02/15/17 09: 32; Admin Dose 220 MG; Start 02/14/17 at 15:00 Insulin Aspart (Novolog Insulin Pen) NOVOLOG *MILD* ALGORITHM Q4 SC Last administered on 02/15/17 12:33; Admin Dose 3 UNIT; Start 02/14/17 at 17:00 Insulin Glargine (Lantus) 46 unit DAILY@20 SC Last administered on 02/14/17 20: 24; Admin Dose 46 UNIT; Start 02/14/17 at 20:00 Multivitamins (Multivitamin) 30 ml DAILY GTB Last administered on 02/15/17 09: 32; Admin Dose 30 ML; Start 02/14/17 at 16:30 Docusate Sodium (Colace Liquid Cup) 100 mg BID GTB Last administered on 09:31; Admin Dose 100 MG; Start 02/14/17 at 21:00 Amiodarone HCl (Cordarone) 200 mg Q12 GTB Last administered on 02/15/17 09:31; Admin Dose 200 MG; Start 02/14/17 at 21:00 Apixaban (Eliquis) 2.5 mg BID GTB Last administered on 02/15/17 09:32; Admin Dose 2.5 MG; Start 02/14/17 at 21:00 NIKHIL RAM MD Feb 15, 2017 14:02
--- NOTE | 2017-02-15 18:05 | CONS ---
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 Blood cultures from HD catheter on 12/13/2016 are negative to date. 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 MRI on 12/06/2016 and bone scan on showed early OM of the distal phalanx of the left great toe and left fourth proximal phalanx. superficial swab grew inna only - s/p right pleural effusion s/p thoracentesis with .9L removed on 12/16/2016 - severe , EF 40-45% per TTE 12/17/16 - DM - Hgb A1c 8.7% - HTN associated with DM Tracheostomy site bleeding Plan: HD tomorrow , will conitnue HD on MWF s/p Tracheostomy, on ventilator pt will need HD palcement at a unit where they can do a HD for pt with tracheostomy and PEG tube placemen t- case liner has been instructed to set up renal [place] pt has severe , very labile BP sometimes with HD will continue to follow up for HD need Consultation Date/Type/Reason Admit Date/Time Dec 02, 2016 at 21:01 Initial Consult Date Type of Consultation: NEPHROLOGY Referring Provider: VIET PARKER MD 24 HR Interval Summary Free Text/Dictation stable, plan for HD tomorrow Exam/Review of Systems Vital Signs Vitals Vital Signs Date Time Temp Pulse Resp B/P Pulse Ox O2 Delivery O2 Flow Rate FiO2 02/15/17 17:37 76 16 97 30 02/15/17 15:25 97.8 120/59 02/15/17 12:00 Mechanical Ventilator Intake and Output 02/14/17 02/14/17 02/15/17 15:00 23:00 07:00 Intake Total 700 ml 995 ml 760 ml Output Total 2700 ml 200 ml Balance -2000 ml 795 ml 760 ml Exam Constitutional: frail, non-verbal Neck: + tracheostomy Respiratory: crackles/rales Cardiovascular: nl pulses, regular rate and rhythm Gastrointestinal: non-tender, soft Musculoskeletal: nl extremities to inspection Extremities: No edema Neurological: confused, lethargic Skin: other (unstageable ulcer on coccyx) Results Result Diagram: 02/15/17 0605 02/15/17604 Results 24 hrs Laboratory Tests Test 02/14/17 20:18 02/15/17 00:42 02/15/17 04:16 02/15/17 05:19 Bedside Glucose 200 209 219 206 Test 02/15/17 06:05 02/15/17 07:59 02/15/17 12:12 02/15/17 17:13 White Blood Count 15.6 H Red Blood Count 2.67 L Hemoglobin 7.6 L Hematocrit 24.2 L Mean Corpuscular Volume 90.6 Mean Corpuscular Hemoglobin 28.5 L Mean Corpuscular Hemoglobin Concent 31.4 L Red Cell Distribution Width 14.6 H Platelet Count 283 Mean Platelet Volume 10.2 Neutrophils % 84.6 H Lymphocytes % 6.6 L Monocytes % 6.7 Eosinophils % 0.3 Basophils % 0.2 Nucleated Red Blood Cells % 0.0 Neutrophils # 13.2 H Lymphocytes # 1.0 Monocytes # 1.0 H Eosinophils # 0.1 Basophils # 0.0 Nucleated Red Blood Cells # 0.0 Sodium Level 139 Potassium Level 4.8 Chloride Level 93 L Carbon Dioxide Level 28 Anion Gap 23 H Blood Urea Nitrogen 60 H Creatinine 2.03 H Glucose Level 196 Calcium Level 9.0 Bedside Glucose 211 223 H 226 H Medications Medications Current Medications Ondansetron HCl (Zofran Inj) 4 mg Q6H PRN IV NAUSEA AND/OR VOMITING Last administered on 02/14/17t 14:24; Admin Dose 4 MG; Start 12/02/16 at 22:30 Miscellaneous Information 1 ea NOTE XX ; Start 12/02/16 at 23:00 Glucose (Glutose) 15 gm Q15M PRN PO DECREASED GLUCOSE; Start 12/02/16 at 23:00 Glucose (Glutose) 22.5 gm Q15M PRN PO DECREASED GLUCOSE; Start 12/02/16 at 23: 00 Dextrose (D50w Syringe) 25 ml Q15M PRN IV DECREASED GLUCOSE Last administered on 01/26/17 05:21; Admin Dose 25 ML; Start 12/02/16 at 23:00 Dextrose (D50w Syringe) 50 ml Q15M PRN IV DECREASED GLUCOSE Last administered on 01/23/17 04:58; Admin Dose 50 ML; Start 12/02/16 at 23:00 Glucagon (Glucagen) 1 mg Q15M PRN IM DECREASED GLUCOSE; Start 12/02/16 at 23:00 Glucose (Glutose) 15 gm Q15M PRN BUCCAL DECREASED GLUCOSE; Start 12/02/16 at 23 :00 Acetaminophen (Tylenol Supp) 650 mg Q6H PRN DE ELEVATED TEMPERATURE Last administered on 01/13/17 20:32; Admin Dose 650 MG; Start 12/09/16 at 17:00 Hydralazine HCl (Apresoline) 10 mg Q6H PRN IV SBP>150mm hg Last administered on 12/19/16 08:50; Admin Dose 10 MG; Start 12/11/16 at 10:30 Morphine Sulfate (morphine) 2 mg Q2H PRN IV PAIN LEVEL 4-7; Start 12/13/16 at 10 :00 Collagenase (Santyl) 1 applic DAILY TOP Last administered on 02/15/17 09:32; Admin Dose 1 APPLIC; Start 01/04/17 at 09:00 Metoprolol Tartrate (Lopressor) 5 mg Q4 PRN IV FOR H.R>110; Start 01/12/17 at 17:30 Acetaminophen (Tylenol Liquid) 650 mg Q6H PRN NGT PAIN AND OR ELEVATED TEMP Last administered on 02/03/17 17:37; Admin Dose 650 MG; Start 01/13/17 at 23:30 Acetaminophen/ Hydrocodone Bitart ([place] (5/325)) 1 tab Q6H PRN NGT PAIN LEVEL 4-7; Start 01/13/17 at 23:30 Levetiracetam (Keppra Liquid) 1,000 mg DAILY NGT Last administered on 02/15/17 09:32; Admin Dose 1,000 MG; Start 01/14/17 at 09:00 Meclizine HCl (Antivert) 25 mg TID PRN NGT dizziness; Start 01/13/17 at 20:00 Zolpidem Tartrate (Ambien) 5 mg HS PRN NGT INSOMNIA; Start 01/13/17 at 20:00 Metoprolol Tartrate (Lopressor) 12.5 mg BID NGT Last administered on 02/15/17 09:32; Admin Dose 12.5 MG; Start 01/24/17 at 21:00 Nystatin 5 ml 5 ml Q6 PO Last administered on 02/15/17 17:22; Admin Dose 5 ML; Start 01/31/17 at 12:00 Cefepime HCl 50 ml @ 100 mls/hr DAILY IVPB Last administered on 02/15/17 09:32 ; Admin Dose 100 MLS/HR; Start 02/02/17 at 11:00 Caspofungin/ Sodium Chloride (Cancidas/NS) 250 ml @ 250 mls/hr Q24H IVPB Last administered on 02/14/17 21:19; Admin Dose 250 MLS/HR; Start 02/05/17 at 22:00 Lansoprazole (Prevacid) 30 mg DAILY@06 GTB Last administered on 02/15/17 05:21 ; Admin Dose 30 MG; Start 02/09/17 at 06:00 Diagnostic Test (Pha) (Accu-Chek) 1 ea 02 XX ; Start 02/15/17 at 02:00 Zinc Sulfate (Zinc Sulfate) 220 mg DAILY GTB Last administered on 02/15/17 09: 32; Admin Dose 220 MG; Start 02/14/17 at 15:00 Insulin Aspart (Novolog Insulin Pen) NOVOLOG *MILD* ALGORITHM Q4 SC Last administered on 02/15/17 17:22; Admin Dose 3 UNIT; Start 02/14/17 at 17:00 Insulin Glargine (Lantus) 46 unit DAILY@20 SC Last administered on 02/14/17 20: 24; Admin Dose 46 UNIT; Start 02/14/17 at 20:00 Multivitamins (Multivitamin) 30 ml DAILY GTB Last administered on 02/15/17 09: 32; Admin Dose 30 ML; Start 02/14/17 at 16:30 Docusate Sodium (Colace Liquid Cup) 100 mg BID GTB Last administered on 09:31; Admin Dose 100 MG; Start 02/14/17 at 21:00 Amiodarone HCl (Cordarone) 200 mg Q12 GTB Last administered on 02/15/17 09:31; Admin Dose 200 MG; Start 02/14/17 at 21:00 Apixaban (Eliquis) 2.5 mg BID GTB Last administered on 02/15/17 09:32; Admin Dose 2.5 MG; Start 02/14/17 at 21:00 TASHIA MCGARRY MD Feb 15, 2017 18:05
[2017-02-15] MEDS: INSULIN GLARGINE [LANtus] 3 ML PEN SC SCH (20:39)
[2017-02-15] MEDS: CASPOFUNGIN 50 MG in SOD CHLORIDE 0.9% 250 ML IVPB SCH (21:12)
[2017-02-16] VITALS (30 sets, daily range): BP systolic 91–134; BP diastolic 46–64; PULSE 63–79; RESP 15–23
[2017-02-16] MEDS: NYSTATIN SUSP 5 ML CUP PO SCH ×4 (01:05→18:03)
[2017-02-16] MEDS: ALBUTEROL 18 GM INHALER INH SCH ×4 (01:32→19:40)
[2017-02-16] MEDS: Insulin NOVOLOG SS MILD Algorithm (NPO/TPN/ENTERAL FEEDS) SC SCH ×6 (01:55→21:59)
[2017-02-16] MEDS: LANSOPRAZOLE 30 MG CAP GTB SCH (05:42)
[2017-02-16 06:07] LABS: ADD SCAN DIFF NO
[2017-02-16 06:15] LABS: BASOPHILS % 0.1 % (0.0-2.0); EOSINOPHILS % 0.3 % (0.0-7.0); HEMOGLOBIN 7.3 g/dl (14.0-18.0); LYMPHOCYTES % 7.2 % (15.0-51.0); MEAN CORPUSCULAR HEMOGLOBIN 28.6 pg (29.0-33.0); MEAN CORPUSCULAR HGB CONC 31.7 g/dl (32.0-37.0); MEAN CORPUSCULAR VOLUME 90.2 fl (82.0-101.0); MONOCYTES % 7.2 % (0.0-11.0); NEUTROPHIL # 11.5 10^3/ul (1.6-7.5); NEUTROPHILS % 83.5 % (39.0-77.0); PLATELET COUNT 275 10^3/UL (140-415); RED BLOOD COUNT 2.55 10^6/ul (4.70-6.10); RED CELL DISTRIBUTION WIDTH 14.6 % (11.5-14.5); WHITE BLOOD COUNT 13.7 10^3/ul (4.8-10.8)
[2017-02-16 06:48] LABS: CALCIUM 8.8 mg/dl (8.4-10.2); CREATININE 2.71 mg/dl (0.61-1.24); POTASSIUM 5.4 mmol/L (3.5-5.1)
[2017-02-16] MEDS: AMIODARONE 200 MG TAB GTB SCH ×2 (09:00→20:44)
[2017-02-16] MEDS: METOPROLOL 25 MG TAB NGT SCH ×2 (09:00→20:43)
[2017-02-16] MEDS: APIXABAN 5 MG TABLET GTB SCH ×2 (09:26→20:43)
[2017-02-16] MEDS: ZINC SULFATE 220 MG CAP GTB SCH (09:26)
[2017-02-16] MEDS: LEVETIRACETAM (100 MG/ML) 5ML CUP NGT SCH (09:27)
[2017-02-16] MEDS: DOCUSATE SODIUM 10 MG/ML (10ML CUP) GTB SCH ×2 (09:28→20:42)
[2017-02-16] MEDS: MULTIVITAMINS 30 ML CUP GTB SCH (09:28)
[2017-02-16] MEDS: COLLAGENASE 30 GM TUBE TOP SCH (09:41)
[2017-02-16] MEDS: CEFEPIME 1GM/50 ML (PMX) 50 ML IVPB SCH (12:31)
[2017-02-16] MEDS ORDERED: SOD CHLORIDE 0.9% 250 ML IV* ONE (13:58)
--- NOTE | 2017-02-16 13:58 | CONS ---
Date/Time of Note Date/Time of Note DATE: 02/16/17 TIME: 13:55 Assessment/Plan Assessment/Plan Chief Complaint/Hosp Course IMPRESSION: 1. Atrial fibrillation-Having episodes of PAF with reasonable rate control. Currently in SR 2. Hypotension-borderline and labile 3. Abnormal electrocardiogram with inferolateral T-wave inversions. 4. Respiratory failure-s/p trach placement 5. Nonhealing toe ulceration-vascular following 6. Peripheral arterial disease by arterial ultrasound of the lower extremities this admission. 7. Diabetes mellitus. 8. Fevers. 9. Positive troponin-downtrended 10.Bradycardia-improved/stable 11.-severe by echo 12.Cardiomyopathy-EF 40-45% by echo/36% by stress with no ischemia but positive scar. EF <30% by echo post arrest 14.Encephalopathy-anoxic 15. s/p cardiopulmonary arrest 01/08 Recc: -Tele -serial ecg -HD for volume removal as tolerated -Continue eliquis at this time and follow for recurrent bleeding -Continue PO amio in attempt to maintain SR at BID for now -Continue BB as tolerated only following HR/BP closely -Will hold on afterload reduction given severe and thus fixed afterload at valve orifice Problems: Consultation Date/Type/Reason Admit Date/Time Dec 02, 2016 at 21:01 Initial Consult Date 12/03/16 Type of Consultation: cardiology Reason for Consultation CHF//AF Referring Provider: VIET PARKER MD Exam/Review of Systems Vital Signs Vitals Vital Signs Date Time Temp Pulse Resp B/P Pulse Ox O2 Delivery O2 Flow Rate FiO2 02/16/17 13:08 73 19 99 30 02/16/17 11:29 98.2 107/53 02/15/17 12:00 Mechanical Ventilator Intake and Output 02/15/17 02/15/17 02/16/17 15:00 23:00 07:00 Intake Total 1100 ml 860 ml Output Total 300 ml Balance 1100 ml 560 ml Exam Review of Systems: CONSTITUTIONAL: No fevers, chills. PULMONARY: trached CARDIOVASCULAR: No chest pain/palpitations GASTROINTESTINAL: No nausea/vomiting. GENITOURINARY: No hematuria/dysuria. MUSCULOSKELETAL: No myagias/arthalgias. PSYCHIATRIC: The patient denies depression. NEUROLOGIC:lethargic Constitutional: other (sleeping) Psych: no complaints Head: normocephalic ENMT: mucosa pink and moist Neck: jvd (9 cm water), other (trached), supple Respiratory: diminished breath sounds (at bases/B) Cardiovascular: regular rate and rhythm Gastrointestinal: non-tender, soft Musculoskeletal: muscle weakness (generalized) Extremities: edema (none) Neurological: lethargic Results Result Diagram: 02/16/17 0545 02/16/17 0545 Results 24 hrs Laboratory Tests Test 02/15/17 17:13 02/15/17 20:35 02/16/17 01:03 02/16/17 04:56 Bedside Glucose 226 H 227 H 192 144 Test 02/16/17 05:45 02/16/17 09:35 02/16/17 12:24 White Blood Count 13.7 H Red Blood Count 2.55 L Hemoglobin 7.3 L Hematocrit 23.0 L Mean Corpuscular Volume 90.2 Mean Corpuscular Hemoglobin 28.6 L Mean Corpuscular Hemoglobin Concent 31.7 L Red Cell Distribution Width 14.6 H Platelet Count 275 Mean Platelet Volume 10.0 Neutrophils % 83.5 H Lymphocytes % 7.2 L Monocytes % 7.2 Eosinophils % 0.3 Basophils % 0.1 Nucleated Red Blood Cells % 0.0 Neutrophils # 11.5 H Lymphocytes # 1.0 Monocytes # 1.0 H Eosinophils # 0.0 Basophils # 0.0 Nucleated Red Blood Cells # 0.0 Sodium Level 136 Potassium Level 5.4 H Chloride Level 91 L Carbon Dioxide Level 30 Anion Gap 20 H Blood Urea Nitrogen 89 H Creatinine 2.71 H Glucose Level 125 # Calcium Level 8.8 Bedside Glucose 150 156 Medications Medications Current Medications Ondansetron HCl (Zofran Inj) 4 mg Q6H PRN IV NAUSEA AND/OR VOMITING Last administered on 02/14/17 14:24; Admin Dose 4 MG; Start 12/02/16 at 22:30 Miscellaneous Information 1 ea NOTE XX ; Start 12/02/16 at 23:00 Glucose (Glutose) 15 gm Q15M PRN PO DECREASED GLUCOSE; Start 12/02/16 at 23:00 Glucose (Glutose) 22.5 gm Q15M PRN PO DECREASED GLUCOSE; Start 12/02/16 at 23: 00 Dextrose (D50w Syringe) 25 ml Q15M PRN IV DECREASED GLUCOSE Last administered on 01/26/17 05:21; Admin Dose 25 ML; Start 12/02/16 at 23:00 Dextrose (D50w Syringe) 50 ml Q15M PRN IV DECREASED GLUCOSE Last administered on 01/23/17 04:58; Admin Dose 50 ML; Start 12/02/16 at 23:00 Glucagon (Glucagen) 1 mg Q15M PRN IM DECREASED GLUCOSE; Start 12/02/16 at 23:00 Glucose (Glutose) 15 gm Q15M PRN BUCCAL DECREASED GLUCOSE; Start 12/02/16 at 23 :00 Acetaminophen (Tylenol Supp) 650 mg Q6H PRN [place] ELEVATED TEMPERATURE Last administered on 01/13/17 20:32; Admin Dose 650 MG; Start 12/09/16 at 17:00 Hydralazine HCl (Apresoline) 10 mg Q6H PRN IV SBP>150mm hg Last administered on 12/19/16 08:50; Admin Dose 10 MG; Start 12/11/16 at 10:30 Morphine Sulfate (morphine) 2 mg Q2H PRN IV PAIN LEVEL 4-7; Start 12/13/16 at 10 :00 Collagenase (Santyl) 1 applic DAILY TOP Last administered on 02/16/17 09:41; Admin Dose 1 APPLIC; Start 01/04/17 at 09:00 Metoprolol Tartrate (Lopressor) 5 mg Q4 PRN IV FOR H.R>110; Start 01/12/17 at 17:30 Acetaminophen (Tylenol Liquid) 650 mg Q6H PRN NGT PAIN AND OR ELEVATED TEMP Last administered on 02/03/17 17:37; Admin Dose 650 MG; Start 01/13/17 at 23:30 Acetaminophen/ Hydrocodone Bitart ([place] (5/325)) 1 tab Q6H PRN NGT PAIN LEVEL 4-7; Start 01/13/17 at 23:30 Levetiracetam (Keppra Liquid) 1,000 mg DAILY NGT Last administered on 02/16/17 09:27; Admin Dose 1,000 MG; Start 01/14/17 at 09:00 Meclizine HCl (Antivert) 25 mg TID PRN NGT dizziness; Start 01/13/17 at 20:00 Zolpidem Tartrate (Ambien) 5 mg HS PRN NGT INSOMNIA; Start 01/13/17 at 20:00 Metoprolol Tartrate (Lopressor) 12.5 mg BID NGT Last administered on 02/15/17 20:41; Admin Dose 12.5 MG; Start 01/24/17 at 21:00 Nystatin 5 ml 5 ml Q6 PO Last administered on 02/16/17 12:30; Admin Dose 5 ML; Start 01/31/17 at 12:00 Cefepime HCl 50 ml @ 100 mls/hr DAILY IVPB Last administered on 02/16/17 12:31 ; Admin Dose 100 MLS/HR; Start 02/02/17 at 11:00 Caspofungin/ Sodium Chloride (Cancidas/NS) 250 ml @ 250 mls/hr Q24H IVPB Last administered on 02/15/17 21:12; Admin Dose 250 MLS/HR; Start 02/05/17 at 22:00 Lansoprazole (Prevacid) 30 mg DAILY@06 GTB Last administered on 02/16/17 05:42 ; Admin Dose 30 MG; Start 02/09/17 at 06:00 Zinc Sulfate (Zinc Sulfate) 220 mg DAILY GTB Last administered on 02/16/17 09: 26; Admin Dose 220 MG; Start 02/14/17 at 15:00 Insulin Glargine (Lantus) 46 unit DAILY@20 SC Last administered on 02/15/17 20: 39; Admin Dose 46 UNIT; Start 02/14/17 at 20:00 Multivitamins (Multivitamin) 30 ml DAILY GTB Last administered on 02/16/17 09: 28; Admin Dose 30 ML; Start 02/14/17 at 16:30 Docusate Sodium (Colace Liquid Cup) 100 mg BID GTB Last administered on 09:28; Admin Dose 100 MG; Start 02/14/17 at 21:00 Amiodarone HCl (Cordarone) 200 mg Q12 GTB Last administered on 02/15/17 20:42; Admin Dose 200 MG; Start 02/14/17 at 21:00 Apixaban (Eliquis) 2.5 mg BID GTB Last administered on 02/16/17 09:26; Admin Dose 2.5 MG; Start 02/14/17 at 21:00 Insulin Aspart (Novolog Insulin Pen) (Adult SC Insulin - Mild Algorithm)... Q4 SC Last administered on 02/16/17t 12:40; Admin Dose 1 UNIT; Start 02/16/17 at 01: 00 VICENTE LESLIE Feb 16, 2017 13:58
--- NOTE | 2017-02-16 14:20 | CONS ---
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 Blood cultures from HD catheter on 12/13/2016 are negative to date. 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 MRI on 12/06/2016 and bone scan on showed early OM of the distal phalanx of the left great toe and left fourth proximal phalanx. superficial swab grew inna only. At present, no e/o persistent infection - recurrent pleural effusion - s/p right pleural effusion s/p thoracentesis with .9L removed on 12/16/2016; ( Note: there is no pleural fluid cx since orders were placed after Right thoracentesis, and Left thoracentesis was not performed on 12/17/16 d/t insufficient fluid) - ARANZA on CKD that progressed to ESRD and started on HD from 12/09/2016 - anemia - 2 units PRBC today - oliguria - improved - A fib -> PAF - small nonreversible perfusion abnormality in the inferoapical and inferior carver; EF 36% per Lexiscan 12/24/2016 - severe , EF 40-45% per TTE 12/17/16 - DM - Hgb A1c 8.7% - HTN associated with DM - acute encephalopathy with anoxic brain injury - unstageable decubitus ulcer of coccyx, no evidence of infection - dysphagia s/p G-tube placement 02/08/2017 NOTE: Pt completed 6 weeks (12/03/2016-01/15/2017) of antibiotics to treat early OM of the distal phalanx of the left great toe and left fourth proximal phalanx ; s/p pip/tazo 12/03/16-01/08/17; linezolid 01/08/17-01/20/17; caspofungin 01/12/17-01/21/17, restarted - s/p tobramycin (02/04/2017- 02/15/17) for pseudomonas recommendations: - f/u studies - monitor wbc - check procalc - continue renally dosed cefepime (restarted on 02/02/2017-) - continue empiric caspofungin (02/04/2017-) - continue nystatin for thrush - wound care of the coccyx and upper back Dw ALINA Champion/Dr Wilson. Consultation Date/Type/Reason Admit Date/Time Dec 02, 2016 at 21:01 Initial Consult Date 12/08/16 Type of Consultation: cardiology Referring Provider: VIET PARKER MD 24 HR Interval Summary Free Text/Dictation Afebrile, leukocytosis noted, tolerates GT feeding, dw staff Subjective hx not possible: pt non-verbal Constitutional: requiring IVF, requiring O2 Exam/Review of Systems Vital Signs Vitals Vital Signs Date Time Temp Pulse Resp B/P Pulse Ox O2 Delivery O2 Flow Rate FiO2 02/16/17 13:08 73 19 99 30 02/16/17 11:29 98.2 107/53 02/15/17 12:00 Mechanical Ventilator Intake and Output 02/15/17 02/15/17 02/16/17 15:00 23:00 07:00 Intake Total 1100 ml 860 ml Output Total 300 ml Balance 1100 ml 560 ml Exam afebrile, low H/H- will receive 2 units PRBC today, sp HD today. mounika RN- no new events reported overnight. Constitutional: non-verbal Respiratory: clear to auscultation, normal air movement Cardiovascular: nl pulses Gastrointestinal: non-tender, soft Musculoskeletal: muscle weakness Extremities: normal pulses Neurological: unresponsive Skin: other Results Result Diagram: 02/16/17 0545 02/16/17 0545 Results 24 hrs Laboratory Tests Test 02/15/17 17:13 02/15/17 20:35 02/16/17 01:03 02/16/17 04:56 Bedside Glucose 226 H 227 H 192 144 Test 02/16/17 05:45 02/16/17 09:35 02/16/17 12:24 White Blood Count 13.7 H Red Blood Count 2.55 L Hemoglobin 7.3 L Hematocrit 23.0 L Mean Corpuscular Volume 90.2 Mean Corpuscular Hemoglobin 28.6 L Mean Corpuscular Hemoglobin Concent 31.7 L Red Cell Distribution Width 14.6 H Platelet Count 275 Mean Platelet Volume 10.0 Neutrophils % 83.5 H Lymphocytes % 7.2 L Monocytes % 7.2 Eosinophils % 0.3 Basophils % 0.1 Nucleated Red Blood Cells % 0.0 Neutrophils # 11.5 H Lymphocytes # 1.0 Monocytes # 1.0 H Eosinophils # 0.0 Basophils # 0.0 Nucleated Red Blood Cells # 0.0 Sodium Level 136 Potassium Level 5.4 H Chloride Level 91 L Carbon Dioxide Level 30 Anion Gap 20 H Blood Urea Nitrogen 89 H Creatinine 2.71 H Glucose Level 125 # Calcium Level 8.8 Bedside Glucose 150 156 Medications Medications Current Medications Ondansetron HCl (Zofran Inj) 4 mg Q6H PRN IV NAUSEA AND/OR VOMITING Last administered on 02/14/17 14:24; Admin Dose 4 MG; Start 12/02/16 at 22:30 Miscellaneous Information 1 ea NOTE XX ; Start 12/02/16 at 23:00 Glucose (Glutose) 15 gm Q15M PRN PO DECREASED GLUCOSE; Start 12/02/16 at 23:00 Glucose (Glutose) 22.5 gm Q15M PRN PO DECREASED GLUCOSE; Start 12/02/16 at 23: 00 Dextrose (D50w Syringe) 25 ml Q15M PRN IV DECREASED GLUCOSE Last administered on 01/26/17 05:21; Admin Dose 25 ML; Start 12/02/16 at 23:00 Dextrose (D50w Syringe) 50 ml Q15M PRN IV DECREASED GLUCOSE Last administered on 01/23/17 04:58; Admin Dose 50 ML; Start 12/02/16 at 23:00 Glucagon (Glucagen) 1 mg Q15M PRN IM DECREASED GLUCOSE; Start 12/02/16 at 23:00 Glucose (Glutose) 15 gm Q15M PRN BUCCAL DECREASED GLUCOSE; Start 12/02/16 at 23 :00 Acetaminophen (Tylenol Supp) 650 mg Q6H PRN [place] ELEVATED TEMPERATURE Last administered on 01/13/17 20:32; Admin Dose 650 MG; Start 12/09/16 at 17:00 Hydralazine HCl (Apresoline) 10 mg Q6H PRN IV SBP>150mm hg Last administered on 12/19/16 08:50; Admin Dose 10 MG; Start 12/11/16 at 10:30 Morphine Sulfate (morphine) 2 mg Q2H PRN IV PAIN LEVEL 4-7; Start 12/13/16 at 10 :00 Collagenase (Santyl) 1 applic DAILY TOP Last administered on 02/16/17 09:41; Admin Dose 1 APPLIC; Start 01/04/17 at 09:00 Metoprolol Tartrate (Lopressor) 5 mg Q4 PRN IV FOR H.R>110; Start 01/12/17 at 17:30 Acetaminophen (Tylenol Liquid) 650 mg Q6H PRN NGT PAIN AND OR ELEVATED TEMP Last administered on 02/03/17 17:37; Admin Dose 650 MG; Start 01/13/17 at 23:30 Acetaminophen/ Hydrocodone Bitart ([place] (5/325)) 1 tab Q6H PRN NGT PAIN LEVEL 4-7; Start 01/13/17 at 23:30 Levetiracetam (Keppra Liquid) 1,000 mg DAILY NGT Last administered on 02/16/17 09:27; Admin Dose 1,000 MG; Start 01/14/17 at 09:00 Meclizine HCl (Antivert) 25 mg TID PRN NGT dizziness; Start 01/13/17 at 20:00 Zolpidem Tartrate (Ambien) 5 mg HS PRN NGT INSOMNIA; Start 01/13/17 at 20:00 Metoprolol Tartrate (Lopressor) 12.5 mg BID NGT Last administered on 02/15/17 20:41; Admin Dose 12.5 MG; Start 01/24/17 at 21:00 Nystatin 5 ml 5 ml Q6 PO Last administered on 02/16/17 12:30; Admin Dose 5 ML; Start 01/31/17 at 12:00 Cefepime HCl 50 ml @ 100 mls/hr DAILY IVPB Last administered on 02/16/17 12:31 ; Admin Dose 100 MLS/HR; Start 02/02/17 at 11:00 Caspofungin/ Sodium Chloride (Cancidas/NS) 250 ml @ 250 mls/hr Q24H IVPB Last administered on 02/15/17 21:12; Admin Dose 250 MLS/HR; Start 02/05/17 at 22:00 Lansoprazole (Prevacid) 30 mg DAILY@06 GTB Last administered on 02/16/17 05:42 ; Admin Dose 30 MG; Start 02/09/17 at 06:00 Zinc Sulfate (Zinc Sulfate) 220 mg DAILY GTB Last administered on 02/16/17 09: 26; Admin Dose 220 MG; Start 02/14/17 at 15:00 Insulin Glargine (Lantus) 46 unit DAILY@20 SC Last administered on 02/15/17 20: 39; Admin Dose 46 UNIT; Start 02/14/17 at 20:00 Multivitamins (Multivitamin) 30 ml DAILY GTB Last administered on 02/16/17 09: 28; Admin Dose 30 ML; Start 02/14/17 at 16:30 Docusate Sodium (Colace Liquid Cup) 100 mg BID GTB Last administered on 09:28; Admin Dose 100 MG; Start 02/14/17 at 21:00 Amiodarone HCl (Cordarone) 200 mg Q12 GTB Last administered on 02/15/17 20:42; Admin Dose 200 MG; Start 02/14/17 at 21:00 Apixaban (Eliquis) 2.5 mg BID GTB Last administered on 02/16/17 09:26; Admin Dose 2.5 MG; Start 02/14/17 at 21:00 Insulin Aspart (Novolog Insulin Pen) (Adult SC Insulin - Mild Algorithm)... Q4 SC Last administered on 02/16/17 12:40; Admin Dose 1 UNIT; Start 02/16/17 at 01: 00 YLUIANA SIMMONS Feb 16, 2017 14:19
--- NOTE | 2017-02-16 17:54 | CONS ---
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 Blood cultures from HD catheter on 12/13/2016 are negative to date. 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 MRI on 12/06/2016 and bone scan on showed early OM of the distal phalanx of the left great toe and left fourth proximal phalanx. superficial swab grew inna only - s/p right pleural effusion s/p thoracentesis with .9L removed on 12/16/2016 - severe , EF 40-45% per TTE 12/17/16 - DM - Hgb A1c 8.7% - HTN associated with DM Tracheostomy site bleeding Plan: HD today , will conitnue HD on MWF s/p Tracheostomy, on ventilator pt will need HD palcement at a unit where they can do a HD for pt with tracheostomy and PEG tube placemen t- supportive employment case manager has been instructed to set up [facility] pt has severe , very labile BP sometimes with HD will continue to follow up for HD need Consultation Date/Type/Reason Admit Date/Time Dec 02, 2016 at 21:01 Initial Consult Date Type of Consultation: NEPHROLOGY Referring Provider: VIET PARKER MD 24 HR Interval Summary Free Text/Dictation Plan for HD today Exam/Review of Systems Vital Signs Vitals Vital Signs Date Time Temp Pulse Resp B/P Pulse Ox O2 Delivery O2 Flow Rate FiO2 02/16/17 17:09 71 20 100 30 02/16/17 15:57 98.2 107/53 02/15/17 12:00 Mechanical Ventilator Intake and Output 02/15/17 02/15/1717 15:00 23:00 07:00 Intake Total 1100 ml 860 ml Output Total 300 ml Balance 1100 ml 560 ml Exam Constitutional: frail, non-verbal Neck: + tracheostomy Respiratory: crackles/rales Cardiovascular: nl pulses, regular rate and rhythm Gastrointestinal: non-tender, soft Musculoskeletal: nl extremities to inspection Extremities: No edema Neurological: confused, lethargic Skin: other (unstageable ulcer on coccyx) Results Result Diagram: 02/16/1745 02/16/17 0545 Results 24 hrs Laboratory Tests Test 02/15/17 20:35 02/16/17 01:03 02/16/17 04:56 02/16/17 05:45 Bedside Glucose 227 H 192 144 White Blood Count 13.7 H Red Blood Count 2.55 L Hemoglobin 7.3 L Hematocrit 23.0 L Mean Corpuscular Volume 90.2 Mean Corpuscular Hemoglobin 28.6 L Mean Corpuscular Hemoglobin Concent 31.7 L Red Cell Distribution Width 14.6 H Platelet Count 275 Mean Platelet Volume 10.0 Neutrophils % 83.5 H Lymphocytes % 7.2 L Monocytes % 7.2 Eosinophils % 0.3 Basophils % 0.1 Nucleated Red Blood Cells % 0.0 Neutrophils # 11.5 H Lymphocytes # 1.0 Monocytes # 1.0 H Eosinophils # 0.0 Basophils # 0.0 Nucleated Red Blood Cells # 0.0 Sodium Level 136 Potassium Level 5.4 H Chloride Level 91 L Carbon Dioxide Level 30 Anion Gap 20 H Blood Urea Nitrogen 89 H Creatinine 2.71 H Glucose Level 125 # Calcium Level 8.8 Test 02/16/17 09:35 02/16/17 12:24 Bedside Glucose 150 156 Medications Medications Current Medications Ondansetron HCl (Zofran Inj) 4 mg Q6H PRN IV NAUSEA AND/OR VOMITING Last administered on 02/14/17 14:24; Admin Dose 4 MG; Start 12/02/16 at 22:30 Miscellaneous Information 1 ea NOTE XX ; Start 12/02/16 at 23:00 Glucose (Glutose) 15 gm Q15M PRN PO DECREASED GLUCOSE; Start 12/02/16 at 23:00 Glucose (Glutose) 22.5 gm Q15M PRN PO DECREASED GLUCOSE; Start 12/02/16 at 23: 00 Dextrose (D50w Syringe) 25 ml Q15M PRN IV DECREASED GLUCOSE Last administered on 01/26/17 05:21; Admin Dose 25 ML; Start 12/02/16 at 23:00 Dextrose (D50w Syringe) 50 ml Q15M PRN IV DECREASED GLUCOSE Last administered on 01/23/17 04:58; Admin Dose 50 ML; Start 12/02/16 at 23:00 Glucagon (Glucagen) 1 mg Q15M PRN IM DECREASED GLUCOSE; Start 12/02/16 at 23:00 Glucose (Glutose) 15 gm Q15M PRN BUCCAL DECREASED GLUCOSE; Start 12/02/16 at 23 :00 Acetaminophen (Tylenol Supp) 650 mg Q6H PRN [place] ELEVATED TEMPERATURE Last administered on 01/13/17 20:32; Admin Dose 650 MG; Start 12/09/16 at 17:00 Hydralazine HCl (Apresoline) 10 mg Q6H PRN IV SBP>150mm hg Last administered on 12/19/16 08:50; Admin Dose 10 MG; Start 12/11/16 at 10:30 Morphine Sulfate (morphine) 2 mg Q2H PRN IV PAIN LEVEL 4-7; Start 12/13/16 at 10 :00 Collagenase (Santyl) 1 applic DAILY TOP Last administered on 02/16/17 09:41; Admin Dose 1 APPLIC; Start 01/04/17 at 09:00 Metoprolol Tartrate (Lopressor) 5 mg Q4 PRN IV FOR H.R>110; Start 01/12/17 at 17:30 Acetaminophen (Tylenol Liquid) 650 mg Q6H PRN NGT PAIN AND OR ELEVATED TEMP Last administered on 02/03/17 17:37; Admin Dose 650 MG; Start 01/13/17 at 23:30 Acetaminophen/ Hydrocodone Bitart ([place] (5/325)) 1 tab Q6H PRN NGT PAIN LEVEL 4-7; Start 01/13/17 at 23:30 Levetiracetam (Keppra Liquid) 1,000 mg DAILY NGT Last administered on 02/16/17 09:27; Admin Dose 1,000 MG; Start 01/14/17 at 09:00 Meclizine HCl (Antivert) 25 mg TID PRN NGT dizziness; Start 01/13/17 at 20:00 Zolpidem Tartrate (Ambien) 5 mg HS PRN NGT INSOMNIA; Start 01/13/17 at 20:00 Metoprolol Tartrate (Lopressor) 12.5 mg BID NGT Last administered on 02/15/17 20:41; Admin Dose 12.5 MG; Start 01/24/17 at 21:00 Nystatin 5 ml 5 ml Q6 PO Last administered on 02/16/17 12:30; Admin Dose 5 ML; Start 01/31/17 at 12:00 Cefepime HCl 50 ml @ 100 mls/hr DAILY IVPB Last administered on 02/16/17 12:31 ; Admin Dose 100 MLS/HR; Start 02/02/17 at 11:00 Caspofungin/ Sodium Chloride (Cancidas/NS) 250 ml @ 250 mls/hr Q24H IVPB Last administered on 02/15/17 21:12; Admin Dose 250 MLS/HR; Start 02/05/17 at 22:00 Lansoprazole (Prevacid) 30 mg DAILY@06 GTB Last administered on 02/16/17 05:42 ; Admin Dose 30 MG; Start 02/09/17 at 06:00 Zinc Sulfate (Zinc Sulfate) 220 mg DAILY GTB Last administered on 02/16/17 09: 26; Admin Dose 220 MG; Start 02/14/17 at 15:00 Insulin Glargine (Lantus) 46 unit DAILY@20 SC Last administered on 02/15/17 20: 39; Admin Dose 46 UNIT; Start 02/14/17 at 20:00 Multivitamins (Multivitamin) 30 ml DAILY GTB Last administered on 02/16/17 09: 28; Admin Dose 30 ML; Start 02/14/17 at 16:30 Docusate Sodium (Colace Liquid Cup) 100 mg BID GTB Last administered on 09:28; Admin Dose 100 MG; Start 02/14/17 at 21:00 Amiodarone HCl (Cordarone) 200 mg Q12 GTB Last administered on 02/15/17 20:42; Admin Dose 200 MG; Start 02/14/17 at 21:00 Apixaban (Eliquis) 2.5 mg BID GTB Last administered on 02/16/17 09:26; Admin Dose 2.5 MG; Start 02/14/17 at 21:00 Insulin Aspart (Novolog Insulin Pen) (Adult SC Insulin - Mild Algorithm)... Q4 SC Last administered on 02/16/17t 12:40; Admin Dose 1 UNIT; Start 02/16/17 at 01: 00 TASHIA MCGARRY MD Feb 16, 2017 17:54
[2017-02-16] MEDS: INSULIN GLARGINE [LANtus] 3 ML PEN SC SCH (21:58)
[2017-02-16] MEDS: CASPOFUNGIN 50 MG in SOD CHLORIDE 0.9% 250 ML IVPB SCH (22:29)
[2017-02-17] VITALS (25 sets, daily range): BP systolic 90–149; BP diastolic 50–68; PULSE 61–75; RESP 16–20
[2017-02-17] MEDS: NYSTATIN SUSP 5 ML CUP PO SCH ×4 (00:08→18:30)
[2017-02-17] MEDS: ALBUTEROL 18 GM INHALER INH SCH ×4 (01:14→19:47)
[2017-02-17] MEDS: Insulin NOVOLOG SS MILD Algorithm (NPO/TPN/ENTERAL FEEDS) SC SCH ×6 (01:15→20:27)
[2017-02-17] MEDS: LANSOPRAZOLE 30 MG CAP GTB SCH (06:12)
[2017-02-17 06:49] LABS: ADD SCAN DIFF NO
[2017-02-17 07:02] LABS: BASOPHILS % 0.2 % (0.0-2.0); EOSINOPHILS % 0.3 % (0.0-7.0); HEMOGLOBIN 9.8 g/dl (14.0-18.0); LYMPHOCYTES # 1.3 10^3/ul (0.8-2.9); LYMPHOCYTES % 8.5 % (15.0-51.0); MEAN CORPUSCULAR HEMOGLOBIN 28.3 pg (29.0-33.0); MEAN CORPUSCULAR HGB CONC 32.7 g/dl (32.0-37.0); MEAN CORPUSCULAR VOLUME 86.7 fl (82.0-101.0); MEAN PLATELET VOLUME 9.7 fl (7.4-10.4); MONOCYTE # 1.2 10^3/ul (0.3-0.9); MONOCYTES % 8.3 % (0.0-11.0); NEUTROPHILS % 81.5 % (39.0-77.0); PLATELET COUNT 241 10^3/UL (140-415); RED BLOOD COUNT 3.46 10^6/ul (4.70-6.10); RED CELL DISTRIBUTION WIDTH 15.1 % (11.5-14.5); WHITE BLOOD COUNT 14.7 10^3/ul (4.8-10.8)
[2017-02-17 07:35] LABS: CALCIUM 8.1 mg/dl (8.4-10.2); CREATININE 1.95 mg/dl (0.61-1.24); POTASSIUM 4.6 mmol/L (3.5-5.1)
[2017-02-17] MEDS: COLLAGENASE 30 GM TUBE TOP SCH (09:00)
[2017-02-17] MEDS: MULTIVITAMINS 30 ML CUP GTB SCH (09:42)
[2017-02-17] MEDS: LEVETIRACETAM (100 MG/ML) 5ML CUP NGT SCH (09:43)
[2017-02-17] MEDS: APIXABAN 5 MG TABLET GTB SCH ×2 (09:43→20:37)
[2017-02-17] MEDS: ZINC SULFATE 220 MG CAP GTB SCH (09:43)
[2017-02-17] MEDS: DOCUSATE SODIUM 10 MG/ML (10ML CUP) GTB SCH ×2 (09:43→20:36)
[2017-02-17] MEDS: METOPROLOL 25 MG TAB NGT SCH ×2 (09:44→20:29)
[2017-02-17] MEDS: AMIODARONE 200 MG TAB GTB SCH ×2 (09:44→20:37)
[2017-02-17] MEDS: CEFEPIME 1GM/50 ML (PMX) 50 ML IVPB SCH (09:45)
--- NOTE | 2017-02-17 11:46 | CONS ---
Date/Time of Note Date/Time of Note DATE: 02/17/17 TIME: 11:43 Assessment/Plan Assessment/Plan Chief Complaint/Hosp Course IMPRESSION: 1. Atrial fibrillation-Having episodes of PAF with reasonable rate control. Currently remains in SR 2. Hypotension-borderline and labile 3. Abnormal electrocardiogram with inferolateral T-wave inversions. 4. Respiratory failure-s/p trach placement 5. Nonhealing toe ulceration-vascular following 6. Peripheral arterial disease by arterial ultrasound of the lower extremities this admission. 7. Diabetes mellitus. 8. Fevers. 9. Positive troponin-downtrended 10.Bradycardia-improved/stable 11.-severe by echo 12.Cardiomyopathy-EF 40-45% by echo/36% by stress with no ischemia but positive scar. EF <30% by echo post arrest 14.Encephalopathy-anoxic 15. s/p cardiopulmonary arrest 01/08 Recc: -Tele -serial ecg -HD for volume removal as tolerated -Continue eliquis at this time and follow for recurrent bleeding -Continue PO amio in attempt to maintain SR at BID for now -Continue BB as tolerated only following HR/BP closely -Will hold on afterload reduction given severe and thus fixed afterload at valve orifice Problems: Consultation Date/Type/Reason Admit Date/Time Dec 02, 2016 at 21:01 Initial Consult Date 12/03/16 Type of Consultation: cardiology Reason for Consultation CHF/ Referring Provider: VIET PARKER MD Exam/Review of Systems Vital Signs Vitals Vital Signs Date Time Temp Pulse Resp B/P Pulse Ox O2 Delivery O2 Flow Rate FiO2 02/17/17 11:39 98.4 60 18 109/53 97 02/17/17 11:00 30 02/15/17 12:00 Mechanical Ventilator Intake and Output 02/16/17 02/16/17 02/17/17 15:00 23:00 07:00 Intake Total 300 ml 800 ml Output Total 2300 ml Balance -2000 ml 800 ml Exam Review of Systems: CONSTITUTIONAL: No fevers, chills. PULMONARY: No sob CARDIOVASCULAR: No chest pain/palpitations GASTROINTESTINAL: No nausea/vomiting. GENITOURINARY: No hematuria/dysuria. MUSCULOSKELETAL: No myagias/arthalgias. PSYCHIATRIC: The patient denies depression. NEUROLOGIC: No weakness Constitutional: other (encephalopathic) Psych: no complaints Head: normocephalic ENMT: mucosa pink and moist Neck: jvd (8 cm water), other (trached), supple Respiratory: diminished breath sounds (at) Cardiovascular: regular rate and rhythm Gastrointestinal: non-tender, soft Musculoskeletal: muscle weakness (generalized) Extremities: edema (none) Neurological: confused, lethargic Results Result Diagram: 02/17/17 0612 02/17/17 0612 Results 24 hrs Laboratory Tests Test 02/16/17 12:24 02/16/17 17:55 02/16/17 21:54 02/17/17 01:01 Bedside Glucose 156 197 227 H 202 Test 02/17/17 05:52 02/17/17 06:11 02/17/17 06:12 02/17/17 09:41 Lab Scanned Report BLOOD TRANSFUSION Bedside Glucose 188 167 White Blood Count 14.7 H Red Blood Count 3.46 #L Hemoglobin 9.8 #L Hematocrit 30.0 #L Mean Corpuscular Volume 86.7 Mean Corpuscular Hemoglobin 28.3 L Mean Corpuscular Hemoglobin Concent 32.7 Red Cell Distribution Width 15.1 H Platelet Count 241 Mean Platelet Volume 9.7 Neutrophils % 81.5 H Lymphocytes % 8.5 L Monocytes % 8.3 Eosinophils % 0.3 Basophils % 0.2 Nucleated Red Blood Cells % 0.0 Neutrophils # 12.0 H Lymphocytes # 1.3 Monocytes # 1.2 H Eosinophils # 0.0 Basophils # 0.0 Nucleated Red Blood Cells # 0.0 Sodium Level 132 L Potassium Level 4.6 Chloride Level 91 L Carbon Dioxide Level 30 Anion Gap 16 Blood Urea Nitrogen 66 H Creatinine 1.95 H Glucose Level 170 Calcium Level 8.1 L Medications Medications Current Medications Ondansetron HCl (Zofran Inj) 4 mg Q6H PRN IV NAUSEA AND/OR VOMITING Last administered on 02/14/17t 14:24; Admin Dose 4 MG; Start 12/02/16 at 22:30 Miscellaneous Information 1 ea NOTE XX ; Start 12/02/16 at 23:00 Glucose (Glutose) 15 gm Q15M PRN PO DECREASED GLUCOSE; Start 12/02/16 at 23:00 Glucose (Glutose) 22.5 gm Q15M PRN PO DECREASED GLUCOSE; Start 12/02/16 at 23: 00 Dextrose (D50w Syringe) 25 ml Q15M PRN IV DECREASED GLUCOSE Last administered on 01/26/17 05:21; Admin Dose 25 ML; Start 12/02/16 at 23:00 Dextrose (D50w Syringe) 50 ml Q15M PRN IV DECREASED GLUCOSE Last administered on 01/23/17 04:58; Admin Dose 50 ML; Start 12/02/16 at 23:00 Glucagon (Glucagen) 1 mg Q15M PRN IM DECREASED GLUCOSE; Start 12/02/16 at 23:00 Glucose (Glutose) 15 gm Q15M PRN BUCCAL DECREASED GLUCOSE; Start 12/02/16 at 23 :00 Acetaminophen (Tylenol Supp) [address] ELEVATED TEMPERATURE Last administered on 01/13/17 20:32; Admin Dose 650 MG; Start 12/09/16 at 17:00 Hydralazine HCl (Apresoline) 10 mg Q6H PRN IV SBP>150mm hg Last administered on 12/19/16 08:50; Admin Dose 10 MG; Start 12/11/16 at 10:30 Morphine Sulfate (morphine) 2 mg Q2H PRN IV PAIN LEVEL 4-7; Start 12/13/16 at 10 :00 Collagenase (Santyl) 1 applic DAILY TOP Last administered on 02/16/17 09:41; Admin Dose 1 APPLIC; Start 01/04/17 at 09:00 Metoprolol Tartrate (Lopressor) 5 mg Q4 PRN IV FOR H.R>110; Start 01/12/17 at 17:30 Acetaminophen (Tylenol Liquid) 650 mg Q6H PRN NGT PAIN AND OR ELEVATED TEMP Last administered on 02/03/17 17:37; Admin Dose 650 MG; Start 01/13/17 at 23:30 Acetaminophen/ Hydrocodone Bitart ([place] (5/325)) 1 tab Q6H PRN NGT PAIN LEVEL 4-7; Start 01/13/17 at 23:30 Levetiracetam (Keppra Liquid) 1,000 mg DAILY NGT Last administered on 02/17/17 09:43; Admin Dose 1,000 MG; Start 01/14/17 at 09:00 Meclizine HCl (Antivert) 25 mg TID PRN NGT dizziness; Start 01/13/17 at 20:00 Zolpidem Tartrate (Ambien) 5 mg HS PRN NGT INSOMNIA; Start 01/13/17 at 20:00 Metoprolol Tartrate (Lopressor) 12.5 mg BID NGT Last administered on 02/17/17 09:44; Admin Dose 12.5 MG; Start 01/24/17 at 21:00 Nystatin 5 ml 5 ml Q6 PO Last administered on 02/17/17 06:12; Admin Dose 5 ML; Start 01/31/17 at 12:00 Cefepime HCl 50 ml @ 100 mls/hr DAILY IVPB Last administered on 02/17/17 09:45 ; Admin Dose 100 MLS/HR; Start 02/02/17 at 11:00 Caspofungin/ Sodium Chloride (Cancidas/NS) 250 ml @ 250 mls/hr Q24H IVPB Last administered on 02/16/17 22:29; Admin Dose 250 MLS/HR; Start 02/05/17 at 22:00 Lansoprazole (Prevacid) 30 mg DAILY@06 GTB Last administered on 02/17/17 06:12 ; Admin Dose 30 MG; Start 02/09/17 at 06:00 Zinc Sulfate (Zinc Sulfate) 220 mg DAILY GTB Last administered on 02/17/17 09: 43; Admin Dose 220 MG; Start 02/14/17 at 15:00 Insulin Glargine (Lantus) 46 unit DAILY@20 SC Last administered on 02/16/17 21: 58; Admin Dose 46 UNIT; Start 02/14/17 at 20:00 Multivitamins (Multivitamin) 30 ml DAILY GTB Last administered on 02/17/17 09: 42; Admin Dose 30 ML; Start 02/14/17 at 16:30 Docusate Sodium (Colace Liquid Cup) 100 mg BID GTB Last administered on 09:43; Admin Dose 100 MG; Start 02/14/17 at 21:00 Amiodarone HCl (Cordarone) 200 mg Q12 GTB Last administered on 02/17/17 09:44; Admin Dose 200 MG; Start 02/14/17 at 21:00 Apixaban (Eliquis) 2.5 mg BID GTB Last administered on 02/17/17 09:43; Admin Dose 2.5 MG; Start 02/14/17 at 21:00 Insulin Aspart (Novolog Insulin Pen) (Adult SC Insulin - Mild Algorithm)... Q4 SC Last administered on 02/17/17t 09:58; Admin Dose 1 UNIT; Start 02/16/17 at 01: 00 VICENTE LESLIE Feb 17, 2017 11:45
--- NOTE | 2017-02-17 12:42 | CONS ---
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 Blood cultures from HD catheter on 12/13/2016 are negative to date. 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 MRI on 12/06/2016 and bone scan on showed early OM of the distal phalanx of the left great toe and left fourth proximal phalanx. superficial swab grew inna only. At present, no e/o persistent infection - recurrent pleural effusion - s/p right pleural effusion s/p thoracentesis with .9L removed on 12/16/2016; ( Note: there is no pleural fluid cx since orders were placed after Right thoracentesis, and Left thoracentesis was not performed on 12/17/16 d/t insufficient fluid) - ARANZA on CKD that progressed to ESRD and started on HD from 12/09/2016 - oliguria - improved - A fib -> PAF - small nonreversible perfusion abnormality in the inferoapical and inferior carver; EF 36% per Lexiscan 12/24/2016 - severe , EF 40-45% per TTE 12/17/16 - DM - Hgb A1c 8.7% - HTN associated with DM - acute encephalopathy with anoxic brain injury - unstageable decubitus ulcer of coccyx, no evidence of infection - dysphagia s/p G-tube placement 02/08/2017 NOTE: Pt completed 6 weeks (12/03/2016-01/15/2017) of antibiotics to treat early OM of the distal phalanx of the left great toe and left fourth proximal phalanx ; s/p pip/tazo 12/03/16-01/08/17; linezolid 01/08/17-01/20/17; caspofungin 01/12/17-01/21/17, restarted; s/p tobramycin 02/04/2017- 02/15/17 for pseudomonas recommendations: - continue renally dosed cefepime (restarted on 02/02/2017-) for pseudomonas - continue empiric caspofungin (02/04/2017-) - monitor wbc - f/u procalcitonin (02/12/2017 pending) - continue nystatin for thrush - wound care of the coccyx and upper back Management d/w ALINA Champion and Dr. Wilson Problems: Consultation Date/Type/Reason Admit Date/Time Dec 02, 2016 at 21:01 Initial Consult Date 12/03/16 Type of Consultation: Infectious Disease Referring Provider: VIET PARKER MD 24 HR Interval Summary Free Text/Dictation Remains afebrile; Got 2 units PRBC with appropriate response; trach site with small amount of bleeding per d/w nursing staff. Unable to perform ROS d/t chronic encephalopathy. Subjective hx not possible: pt non-verbal Exam/Review of Systems Vital Signs Vitals Vital Signs Date Time Temp Pulse Resp B/P Pulse Ox O2 Delivery O2 Flow Rate FiO2 02/17/17 12:08 61 02/17/17 11:39 98.4 18 109/53 97 02/17/17 11:00 30 02/15/17 12:00 Mechanical Ventilator Intake and Output 02/16/17 02/16/17 02/17/17 15:00 23:00 07:00 Intake Total 300 ml 800 ml Output Total 2300 ml Balance -2000 ml 800 ml Exam Constitutional: frail, sleeping, non-verbal at baseline, well developed Head: atraumatic, normocephalic Eyes: nl conjunctiva, nl lids ENMT: other (thrush) Neck: other (tracheostomy intact) Respiratory: few coarse breath sounds Cardiovascular: nl pulses, regular rate and rhythm Gastrointestinal: non-tender, soft, G-tube with tube feeds intact Genitourinary - Male: nl penis, nl scrotum, other (Condom catheter in place) Musculoskeletal: nl extremities to inspection Extremities: No edema Neurological: lethargic/asleep Skin: nl turgor, other (wounds: see nurse note and photos in chart for details ; decub on the coccyx; small scab noted to left great toe -plantar aspect) Results Result Diagram: 02/17/17 0612 02/17/17 0612 Results 24 hrs Laboratory Tests Test 02/16/17 17:55 02/16/17 21:54 02/17/17 01:01 02/17/17 05:52 Bedside Glucose 197 227 H 202 Lab Scanned Report BLOOD TRANSFUSION Test 02/17/17 06:11 02/17/17 06:12 02/17/17 09:41 02/17/17 12:15 Bedside Glucose 188 167 177 White Blood Count 14.7 H Red Blood Count 3.46 #L Hemoglobin 9.8 #L Hematocrit 30.0 #L Mean Corpuscular Volume 86.7 Mean Corpuscular Hemoglobin 28.3 L Mean Corpuscular Hemoglobin Concent 32.7 Red Cell Distribution Width 15.1 H Platelet Count 241 Mean Platelet Volume 9.7 Neutrophils % 81.5 H Lymphocytes % 8.5 L Monocytes % 8.3 Eosinophils % 0.3 Basophils % 0.2 Nucleated Red Blood Cells % 0.0 Neutrophils # 12.0 H Lymphocytes # 1.3 Monocytes # 1.2 H Eosinophils # 0.0 Basophils # 0.0 Nucleated Red Blood Cells # 0.0 Sodium Level 132 L Potassium Level 4.6 Chloride Level 91 L Carbon Dioxide Level 30 Anion Gap 16 Blood Urea Nitrogen 66 H Creatinine 1.95 H Glucose Level 170 Calcium Level 8.1 L Medications Medications Current Medications Ondansetron HCl (Zofran Inj) 4 mg Q6H PRN IV NAUSEA AND/OR VOMITING Last administered on 02/14/17 14:24; Admin Dose 4 MG; Start 12/02/16 at 22:30 Miscellaneous Information 1 ea NOTE XX ; Start 12/02/16 at 23:00 Glucose (Glutose) 15 gm Q15M PRN PO DECREASED GLUCOSE; Start 12/02/16 at 23:00 Glucose (Glutose) 22.5 gm Q15M PRN PO DECREASED GLUCOSE; Start 12/02/16 at 23: 00 Dextrose (D50w Syringe) 25 ml Q15M PRN IV DECREASED GLUCOSE Last administered on 01/26/17 05:21; Admin Dose 25 ML; Start 12/02/16 at 23:00 Dextrose (D50w Syringe) 50 ml Q15M PRN IV DECREASED GLUCOSE Last administered on 01/23/17 04:58; Admin Dose 50 ML; Start 12/02/16 at 23:00 Glucagon (Glucagen) 1 mg Q15M PRN IM DECREASED GLUCOSE; Start 12/02/16 at 23:00 Glucose (Glutose) 15 gm Q15M PRN BUCCAL DECREASED GLUCOSE; Start 12/02/16 at 23 :00 Acetaminophen (Tylenol Supp) 650 mg Q6H PRN [place] ELEVATED TEMPERATURE Last administered on 01/13/17 20:32; Admin Dose 650 MG; Start 12/09/16 at 17:00 Hydralazine HCl (Apresoline) 10 mg Q6H PRN IV SBP>150mm hg Last administered on 12/19/16 08:50; Admin Dose 10 MG; Start 12/11/16 at 10:30 Morphine Sulfate (morphine) 2 mg Q2H PRN IV PAIN LEVEL 4-7; Start 12/13/16 at 10 :00 Collagenase (Santyl) 1 applic DAILY TOP Last administered on 02/16/17 09:41; Admin Dose 1 APPLIC; Start 01/04/17 at 09:00 Metoprolol Tartrate (Lopressor) 5 mg Q4 PRN IV FOR H.R>110; Start 01/12/17 at 17:30 Acetaminophen (Tylenol Liquid) 650 mg Q6H PRN NGT PAIN AND OR ELEVATED TEMP Last administered on 02/03/17 17:37; Admin Dose 650 MG; Start 01/13/17 at 23:30 Acetaminophen/ Hydrocodone Bitart ([place] (5/325)) 1 tab Q6H PRN NGT PAIN LEVEL 4-7; Start 01/13/17 at 23:30 Levetiracetam (Keppra Liquid) 1,000 mg DAILY NGT Last administered on 02/17/17 09:43; Admin Dose 1,000 MG; Start 01/14/17 at 09:00 Meclizine HCl (Antivert) 25 mg TID PRN NGT dizziness; Start 01/13/17 at 20:00 Zolpidem Tartrate (Ambien) 5 mg HS PRN NGT INSOMNIA; Start 01/13/17 at 20:00 Metoprolol Tartrate (Lopressor) 12.5 mg BID NGT Last administered on 02/17/17 09:44; Admin Dose 12.5 MG; Start 01/24/17 at 21:00 Nystatin 5 ml 5 ml Q6 PO Last administered on 02/17/17 06:12; Admin Dose 5 ML; Start 01/31/17 at 12:00 Cefepime HCl 50 ml @ 100 mls/hr DAILY IVPB Last administered on 02/17/17 09:45 ; Admin Dose 100 MLS/HR; Start 02/02/17 at 11:00 Caspofungin/ Sodium Chloride (Cancidas/NS) 250 ml @ 250 mls/hr Q24H IVPB Last administered on 02/16/17 22:29; Admin Dose 250 MLS/HR; Start 02/05/17 at 22:00 Lansoprazole (Prevacid) 30 mg DAILY@06 GTB Last administered on 02/17/17 06:12 ; Admin Dose 30 MG; Start 02/09/17 at 06:00 Zinc Sulfate (Zinc Sulfate) 220 mg DAILY GTB Last administered on 02/17/17 09: 43; Admin Dose 220 MG; Start 02/14/17 at 15:00 Insulin Glargine (Lantus) 46 unit DAILY@20 SC Last administered on 02/16/17 21: 58; Admin Dose 46 UNIT; Start 02/14/17 at 20:00 Multivitamins (Multivitamin) 30 ml DAILY GTB Last administered on 02/17/17 09: 42; Admin Dose 30 ML; Start 02/14/17 at 16:30 Docusate Sodium (Colace Liquid Cup) 100 mg BID GTB Last administered on 09:43; Admin Dose 100 MG; Start 02/14/17 at 21:00 Amiodarone HCl (Cordarone) 200 mg Q12 GTB Last administered on 02/17/17 09:44; Admin Dose 200 MG; Start 02/14/17 at 21:00 Apixaban (Eliquis) 2.5 mg BID GTB Last administered on 02/17/17 09:43; Admin Dose 2.5 MG; Start 02/14/17 at 21:00 Insulin Aspart (Novolog Insulin Pen) (Adult SC Insulin - Mild Algorithm)... Q4 SC Last administered on 02/17/17 09:58; Admin Dose 1 UNIT; Start 02/16/17 at 01: 00 YUMIKO ALATORRE NP Feb 17, 2017 12:42
--- NOTE | 2017-02-17 14:38 | PN ---
Date/Time of Note Date/Time of Note DATE: 02/17/17 TIME: 14:33 Assessment/Plan VTE Prophylaxis VTE Prophylaxis Intervention: other Lines/Catheters IV Catheter Type (from [facility]): [facility] Urinary Cath still in place: No Assessment/Plan Assessment/Plan - Possible recurrent sepsis, resolving. Continue antibiotics per ID. Dr [place] group is following infection disease consultation. - Dysphagia. S/p G-tube by Dr. Smith. Continue G-tube feeding, monitor residual. - Anemia of blood loss. Continue to monitor H&H, transfuse as needed. - Status post cardiopulmonary arrest on 12/09/2016 and 01/08/2017. Continue ventilatory support. - Anoxic encephalopathy. Continue Keppra. - Status post tracheostomy on 01/23/2017. Continue tracheostomy care, wound consult. - End-stage renal disease. Continue hemodialysis per nephrology. - Paroxysmal atrial fibrillation. Eliquis is currently held due to bleeding. - Diabetes mellitus type 2. Continue Lantus and NovoLog with sliding scale coverage with Accu-Cheks q. 4 hours. - Diabetic foot ulcer. Continue current wound care. - Osteomyelitis of the distal phalanx of the great left toe. Completed treatment for antibiotics. Continue sequential compression device for deep venous thrombosis prophylaxis and Protonix for peptic ulcer disease prophylaxis. Case management for correction facility placement and arrangement for hemodialysis. Subjective 24 Hr Interval Summary Free Text/Dictation nad, seems comfortable. afebrile, tolerating diet, dw staff. Constitutional: requiring IVF, requiring O2 Exam/Review of Systems Vital Signs Vitals Vital Signs Date Time Temp Pulse Resp B/P Pulse Ox O2 Delivery O2 Flow Rate FiO2 02/17/17 13:20 62 19 100 30 02/17/17 11:39 98.4 109/53 02/15/17 12:00 Mechanical Ventilator Intake and Output 02/16/17 02/16/17 02/17/17 15:00 23:00 07:00 Intake Total 300 ml 800 ml Output Total 2300 ml Balance -2000 ml 800 ml Exam Constitutional: frail, non-verbal Respiratory: diminished breath sounds Cardiovascular: nl pulses, regular rate and rhythm Gastrointestinal: non-tender, soft Musculoskeletal: muscle weakness Extremities: normal pulses Neurological: unresponsive Results Result Diagram: 02/17/17 0612 02/17/17 0612 Results 24 hrs Laboratory Tests Test 02/16/17 17:55 02/16/17 21:54 02/17/17 01:01 02/17/17 05:52 Bedside Glucose 197 227 H 202 Lab Scanned Report BLOOD TRANSFUSION Test 02/17/17 06:11 02/17/17 06:12 02/17/17 09:41 02/17/17 12:15 Bedside Glucose 188 167 177 White Blood Count 14.7 H Red Blood Count 3.46 #L Hemoglobin 9.8 #L Hematocrit 30.0 #L Mean Corpuscular Volume 86.7 Mean Corpuscular Hemoglobin 28.3 L Mean Corpuscular Hemoglobin Concent 32.7 Red Cell Distribution Width 15.1 H Platelet Count 241 Mean Platelet Volume 9.7 Neutrophils % 81.5 H Lymphocytes % 8.5 L Monocytes % 8.3 Eosinophils % 0.3 Basophils % 0.2 Nucleated Red Blood Cells % 0.0 Neutrophils # 12.0 H Lymphocytes # 1.3 Monocytes # 1.2 H Eosinophils # 0.0 Basophils # 0.0 Nucleated Red Blood Cells # 0.0 Sodium Level 132 L Potassium Level 4.6 Chloride Level 91 L Carbon Dioxide Level 30 Anion Gap 16 Blood Urea Nitrogen 66 H Creatinine 1.95 H Glucose Level 170 Calcium Level 8.1 L Medications Medications Current Medications Ondansetron HCl (Zofran Inj) 4 mg Q6H PRN IV NAUSEA AND/OR VOMITING Last administered on 02/14/17 14:24; Admin Dose 4 MG; Start 12/02/16 at 22:30 Miscellaneous Information 1 ea NOTE XX ; Start 12/02/16 at 23:00 Glucose (Glutose) 15 gm Q15M PRN PO DECREASED GLUCOSE; Start 12/02/16 at 23:00 Glucose (Glutose) 22.5 gm Q15M PRN PO DECREASED GLUCOSE; Start 12/02/16 at 23: 00 Dextrose (D50w Syringe) 25 ml Q15M PRN IV DECREASED GLUCOSE Last administered on 01/26/17 05:21; Admin Dose 25 ML; Start 12/02/16 at 23:00 Dextrose (D50w Syringe) 50 ml Q15M PRN IV DECREASED GLUCOSE Last administered on 01/23/17 04:58; Admin Dose 50 ML; Start 12/02/16 at 23:00 Glucagon (Glucagen) 1 mg Q15M PRN IM DECREASED GLUCOSE; Start 12/02/16 at 23:00 Glucose (Glutose) 15 gm Q15M PRN BUCCAL DECREASED GLUCOSE; Start 12/02/16 at 23 :00 Acetaminophen (Tylenol Supp) [address] ELEVATED TEMPERATURE Last administered on 01/13/17 20:32; Admin Dose 650 MG; Start 12/09/16 at 17:00 Hydralazine HCl (Apresoline) 10 mg Q6H PRN IV SBP>150mm hg Last administered on 12/19/16 08:50; Admin Dose 10 MG; Start 12/11/16 at 10:30 Morphine Sulfate (morphine) 2 mg Q2H PRN IV PAIN LEVEL 4-7; Start 12/13/16 at 10 :00 Collagenase (Santyl) 1 applic DAILY TOP Last administered on 02/16/17 09:41; Admin Dose 1 APPLIC; Start 01/04/17 at 09:00 Metoprolol Tartrate (Lopressor) 5 mg Q4 PRN IV FOR H.R>110; Start 01/12/17 at 17:30 Acetaminophen (Tylenol Liquid) 650 mg Q6H PRN NGT PAIN AND OR ELEVATED TEMP Last administered on 02/03/17 17:37; Admin Dose 650 MG; Start 01/13/17 at 23:30 Acetaminophen/ Hydrocodone Bitart ([place] (5/325)) 1 tab Q6H PRN NGT PAIN LEVEL 4-7; Start 01/13/17 at 23:30 Levetiracetam (Keppra Liquid) 1,000 mg DAILY NGT Last administered on 02/17/17 09:43; Admin Dose 1,000 MG; Start 01/14/17 at 09:00 Meclizine HCl (Antivert) 25 mg TID PRN NGT dizziness; Start 01/13/17 at 20:00 Zolpidem Tartrate (Ambien) 5 mg HS PRN NGT INSOMNIA; Start 01/13/17 at 20:00 Metoprolol Tartrate (Lopressor) 12.5 mg BID NGT Last administered on 02/17/17 09:44; Admin Dose 12.5 MG; Start 01/24/17 at 21:00 Nystatin 5 ml 5 ml Q6 PO Last administered on 02/17/17 12:11; Admin Dose 5 ML; Start 01/31/17 at 12:00 Cefepime HCl 50 ml @ 100 mls/hr DAILY IVPB Last administered on 02/17/17 09:45 ; Admin Dose 100 MLS/HR; Start 02/02/17 at 11:00 Caspofungin/ Sodium Chloride (Cancidas/NS) 250 ml @ 250 mls/hr Q24H IVPB Last administered on 02/16/17 22:29; Admin Dose 250 MLS/HR; Start 02/05/17 at 22:00 Lansoprazole (Prevacid) 30 mg DAILY@06 GTB Last administered on 02/17/17 06:12 ; Admin Dose 30 MG; Start 02/09/17 at 06:00 Zinc Sulfate (Zinc Sulfate) 220 mg DAILY GTB Last administered on 02/17/17 09: 43; Admin Dose 220 MG; Start 02/14/17 at 15:00 Insulin Glargine (Lantus) 46 unit DAILY@20 SC Last administered on 02/16/17 21: 58; Admin Dose 46 UNIT; Start 02/14/17 at 20:00 Multivitamins (Multivitamin) 30 ml DAILY GTB Last administered on 02/17/17 09: 42; Admin Dose 30 ML; Start 02/14/17 at 16:30 Docusate Sodium (Colace Liquid Cup) 100 mg BID GTB Last administered on 09:43; Admin Dose 100 MG; Start 02/14/17 at 21:00 Amiodarone HCl (Cordarone) 200 mg Q12 GTB Last administered on 02/17/17 09:44; Admin Dose 200 MG; Start 02/14/17 at 21:00 Apixaban (Eliquis) 2.5 mg BID GTB Last administered on 02/17/17 09:43; Admin Dose 2.5 MG; Start 02/14/17 at 21:00 Insulin Aspart (Novolog Insulin Pen) (Adult SC Insulin - Mild Algorithm)... Q4 SC Last administered on 02/17/17 12:33; Admin Dose 1 UNIT; Start 02/16/17 at 01: 00 YULIANA SIMMONS Feb 17, 2017 14:37
--- NOTE | 2017-02-17 17:12 | CONS ---
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 Blood cultures from HD catheter on 12/13/2016 are negative to date. 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 MRI on 12/06/2016 and bone scan on showed early OM of the distal phalanx of the left great toe and left fourth proximal phalanx. superficial swab grew inna only - s/p right pleural effusion s/p thoracentesis with .9L removed on 12/16/2016 - severe , EF 40-45% per TTE 12/17/16 - DM - Hgb A1c 8.7% - HTN associated with DM Tracheostomy site bleeding Plan: HD tomorrow , will conitnue HD on MWF s/p Tracheostomy, on ventilator pt will need HD palcement at a unit where they can do a HD for pt with tracheostomy and PEG tube placemen t- case specialist has been instructed to set up renal [facility] pt has severe , very labile BP sometimes with HD will continue to follow up for HD need Consultation Date/Type/Reason Admit Date/Time Dec 02, 2016 at 21:01 Initial Consult Date Type of Consultation: NEPHROLOGY Referring Provider: VIET PARKER MD 24 HR Interval Summary Free Text/Dictation plan for HD tomorrow, awaiting surgery for debridement Exam/Review of Systems Vital Signs Vitals Vital Signs Date Time Temp Pulse Resp B/P Pulse Ox O2 Delivery O2 Flow Rate FiO2 02/17/17 16:10 67 02/17/17 15:35 97.9 18 110/52 96 02/17/17 15:15 30 02/15/17 12:00 Mechanical Ventilator Intake and Output 02/16/17 02/16/17 02/17/17 15:00 23:00 07:00 Intake Total 300 ml 800 ml Output Total 2300 ml Balance -2000 ml 800 ml Exam Constitutional: frail, non-verbal Neck: + tracheostomy Respiratory: crackles/rales Cardiovascular: nl pulses, regular rate and rhythm Gastrointestinal: non-tender, soft Musculoskeletal: nl extremities to inspection Extremities: No edema Neurological: confused, lethargic Skin: other (unstageable ulcer on coccyx) Results Result Diagram: 02/17/17 0612 02/17/17 0612 Results 24 hrs Laboratory Tests Test 02/16/17 17:55 02/16/17 21:54 02/17/17 01:01 02/17/17 05:52 Bedside Glucose 197 227 H 202 Lab Scanned Report BLOOD TRANSFUSION Test 02/17/17 06:11 02/17/17 06:12 02/17/17 09:41 02/17/17 12:15 Bedside Glucose 188 167 177 White Blood Count 14.7 H Red Blood Count 3.46 #L Hemoglobin 9.8 #L Hematocrit 30.0 #L Mean Corpuscular Volume 86.7 Mean Corpuscular Hemoglobin 28.3 L Mean Corpuscular Hemoglobin Concent 32.7 Red Cell Distribution Width 15.1 H Platelet Count 241 Mean Platelet Volume 9.7 Neutrophils % 81.5 H Lymphocytes % 8.5 L Monocytes % 8.3 Eosinophils % 0.3 Basophils % 0.2 Nucleated Red Blood Cells % 0.0 Neutrophils # 12.0 H Lymphocytes # 1.3 Monocytes # 1.2 H Eosinophils # 0.0 Basophils # 0.0 Nucleated Red Blood Cells # 0.0 Sodium Level 132 L Potassium Level 4.6 Chloride Level 91 L Carbon Dioxide Level 30 Anion Gap 16 Blood Urea Nitrogen 66 H Creatinine 1.95 H Glucose Level 170 Calcium Level 8.1 L Medications Medications Current Medications Ondansetron HCl (Zofran Inj) 4 mg Q6H PRN IV NAUSEA AND/OR VOMITING Last administered on 02/14/17 14:24; Admin Dose 4 MG; Start 12/02/16 at 22:30 Miscellaneous Information 1 ea NOTE XX ; Start 12/02/16 at 23:00 Glucose (Glutose) 15 gm Q15M PRN PO DECREASED GLUCOSE; Start 12/02/16 at 23:00 Glucose (Glutose) 22.5 gm Q15M PRN PO DECREASED GLUCOSE; Start 12/02/16 at 23: 00 Dextrose (D50w Syringe) 25 ml Q15M PRN IV DECREASED GLUCOSE Last administered on 01/26/17 05:21; Admin Dose 25 ML; Start 12/02/16 at 23:00 Dextrose (D50w Syringe) 50 ml Q15M PRN IV DECREASED GLUCOSE Last administered on 01/23/17 04:58; Admin Dose 50 ML; Start 12/02/16 at 23:00 Glucagon (Glucagen) 1 mg Q15M PRN IM DECREASED GLUCOSE; Start 12/02/16 at 23:00 Glucose (Glutose) 15 gm Q15M PRN BUCCAL DECREASED GLUCOSE; Start 12/02/16 at 23 :00 Acetaminophen (Tylenol Supp) 650 mg Q6H PRN [place] ELEVATED TEMPERATURE Last administered on 01/13/17 20:32; Admin Dose 650 MG; Start 12/09/16 at 17:00 Hydralazine HCl (Apresoline) 10 mg Q6H PRN IV SBP>150mm hg Last administered on 12/19/16 08:50; Admin Dose 10 MG; Start 12/11/16 at 10:30 Morphine Sulfate (morphine) 2 mg Q2H PRN IV PAIN LEVEL 4-7; Start 12/13/16 at 10 :00 Collagenase (Santyl) 1 applic DAILY TOP Last administered on 02/17/17 09:00; Admin Dose 1 APPLIC; Start 01/04/17 at 09:00 Metoprolol Tartrate (Lopressor) 5 mg Q4 PRN IV FOR H.R>110; Start 01/12/17 at 17:30 Acetaminophen (Tylenol Liquid) 650 mg Q6H PRN NGT PAIN AND OR ELEVATED TEMP Last administered on 02/03/17 17:37; Admin Dose 650 MG; Start 01/13/17 at 23:30 Acetaminophen/ Hydrocodone Bitart ([place] (5/325)) 1 tab Q6H PRN NGT PAIN LEVEL 4-7; Start 01/13/17 at 23:30 Levetiracetam (Keppra Liquid) 1,000 mg DAILY NGT Last administered on 02/17/17 09:43; Admin Dose 1,000 MG; Start 01/14/17 at 09:00 Meclizine HCl (Antivert) 25 mg TID PRN NGT dizziness; Start 01/13/17 at 20:00 Zolpidem Tartrate (Ambien) 5 mg HS PRN NGT INSOMNIA; Start 01/13/17 at 20:00 Metoprolol Tartrate (Lopressor) 12.5 mg BID NGT Last administered on 02/17/17 09:44; Admin Dose 12.5 MG; Start 01/24/17 at 21:00 Nystatin 5 ml 5 ml Q6 PO Last administered on 02/17/17 12:11; Admin Dose 5 ML; Start 01/31/17 at 12:00 Cefepime HCl 50 ml @ 100 mls/hr DAILY IVPB Last administered on 02/17/17 09:45 ; Admin Dose 100 MLS/HR; Start 02/02/17 at 11:00 Caspofungin/ Sodium Chloride (Cancidas/NS) 250 ml @ 250 mls/hr Q24H IVPB Last administered on 02/16/17 22:29; Admin Dose 250 MLS/HR; Start 02/05/17 at 22:00 Lansoprazole (Prevacid) 30 mg DAILY@06 GTB Last administered on 02/17/17 06:12 ; Admin Dose 30 MG; Start 02/09/17 at 06:00 Zinc Sulfate (Zinc Sulfate) 220 mg DAILY GTB Last administered on 02/17/17 09: 43; Admin Dose 220 MG; Start 02/14/17 at 15:00 Insulin Glargine (Lantus) 46 unit DAILY@20 SC Last administered on 02/16/17 21: 58; Admin Dose 46 UNIT; Start 02/14/17 at 20:00 Multivitamins (Multivitamin) 30 ml DAILY GTB Last administered on 02/17/17 09: 42; Admin Dose 30 ML; Start 02/14/17 at 16:30 Docusate Sodium (Colace Liquid Cup) 100 mg BID GTB Last administered on 09:43; Admin Dose 100 MG; Start 02/14/17 at 21:00 Amiodarone HCl (Cordarone) 200 mg Q12 GTB Last administered on 02/17/17 09:44; Admin Dose 200 MG; Start 02/14/17 at 21:00 Apixaban (Eliquis) 2.5 mg BID GTB Last administered on 02/17/17 09:43; Admin Dose 2.5 MG; Start 02/14/17 at 21:00 Insulin Aspart (Novolog Insulin Pen) (Adult SC Insulin - Mild Algorithm)... Q4 SC Last administered on 02/17/17 12:33; Admin Dose 1 UNIT; Start 02/16/17 at 01: 00 TASHIA MCGARRY MD Feb 17, 2017 17:12
[2017-02-17] MEDS: INSULIN GLARGINE [LANtus] 3 ML PEN SC SCH (20:45)
[2017-02-17] MEDS: CASPOFUNGIN 50 MG in SOD CHLORIDE 0.9% 250 ML IVPB SCH (22:31)
[2017-02-18] VITALS (30 sets, daily range): BP systolic 96–158; BP diastolic 51–78; PULSE 66–93; RESP 17–25
[2017-02-18] MEDS: NYSTATIN SUSP 5 ML CUP PO SCH ×4 (00:28→17:04)
[2017-02-18] MEDS: Insulin NOVOLOG SS MILD Algorithm (NPO/TPN/ENTERAL FEEDS) SC SCH ×6 (00:33→21:30)
[2017-02-18] MEDS: ALBUTEROL 18 GM INHALER INH SCH ×4 (01:25→19:27)
[2017-02-18] MEDS: LANSOPRAZOLE 30 MG CAP GTB SCH (05:11)
[2017-02-18 06:18] LABS: ADD SCAN DIFF NO
[2017-02-18 06:35] LABS: BASOPHILS % 0.2 % (0.0-2.0); EOSINOPHILS % 0.3 % (0.0-7.0); HEMATOCRIT 30.9 % (42.0-52.0); HEMOGLOBIN 10.1 g/dl (14.0-18.0); LYMPHOCYTES # 0.8 10^3/ul (0.8-2.9); LYMPHOCYTES % 6.4 % (15.0-51.0); MEAN CORPUSCULAR HEMOGLOBIN 28.3 pg (29.0-33.0); MEAN CORPUSCULAR HGB CONC 32.7 g/dl (32.0-37.0); MEAN CORPUSCULAR VOLUME 86.6 fl (82.0-101.0); MEAN PLATELET VOLUME 9.7 fl (7.4-10.4); MONOCYTES % 7.9 % (0.0-11.0); NEUTROPHIL # 10.5 10^3/ul (1.6-7.5); NEUTROPHILS % 84.2 % (39.0-77.0); PLATELET COUNT 233 10^3/UL (140-415); RED BLOOD COUNT 3.57 10^6/ul (4.70-6.10); WHITE BLOOD COUNT 12.5 10^3/ul (4.8-10.8)
[2017-02-18 06:45] LABS: CALCIUM 8.6 mg/dl (8.4-10.2); CREATININE 2.43 mg/dl (0.61-1.24); POTASSIUM 4.8 mmol/L (3.5-5.1)
[2017-02-18] MEDS: ZINC SULFATE 220 MG CAP GTB SCH (08:05)
[2017-02-18] MEDS: CEFEPIME 1GM/50 ML (PMX) 50 ML IVPB SCH (08:05)
[2017-02-18] MEDS: LEVETIRACETAM (100 MG/ML) 5ML CUP NGT SCH (08:06)
[2017-02-18] MEDS: APIXABAN 5 MG TABLET GTB SCH ×2 (08:06→20:41)
[2017-02-18] MEDS: DOCUSATE SODIUM 10 MG/ML (10ML CUP) GTB SCH ×2 (08:06→20:40)
[2017-02-18] MEDS: MULTIVITAMINS 30 ML CUP GTB SCH (08:06)
[2017-02-18] MEDS: COLLAGENASE 30 GM TUBE TOP SCH (08:09)
[2017-02-18] MEDS: AMIODARONE 200 MG TAB GTB SCH ×2 (09:00→20:41)
[2017-02-18] MEDS: METOPROLOL 25 MG TAB NGT SCH ×2 (09:00→20:42)
--- NOTE | 2017-02-18 13:00 | CONS ---
Date/Time of Note Date/Time of Note DATE: 02/18/17 TIME: 12:58 Assessment/Plan Assessment/Plan Chief Complaint/Hosp Course IMPRESSION: 1. Atrial fibrillation-Having episodes of PAF with reasonable rate control. Currently remains in SR 2. Hypotension-borderline and labile 3. Abnormal electrocardiogram with inferolateral T-wave inversions. 4. Respiratory failure-s/p trach placement 5. Nonhealing toe ulceration-vascular following 6. Peripheral arterial disease by arterial ultrasound of the lower extremities this admission. 7. Diabetes mellitus. 8. Fevers. 9. Positive troponin-downtrended 10.Bradycardia-improved/stable 11.-severe by echo 12.Cardiomyopathy-EF 40-45% by echo/36% by stress with no ischemia but positive scar. EF <30% by echo post arrest 14.Encephalopathy-anoxic 15. s/p cardiopulmonary arrest 01/08 Recc: -Tele -serial ecg -HD for volume removal as tolerated ongoing today -Continue eliquis at this time and follow for recurrent bleeding -Continue PO amio in attempt to maintain SR at BID for now -Continue BB as tolerated only following HR/BP closely -Will hold on afterload reduction given severe and thus fixed afterload at valve orifice Problems: Consultation Date/Type/Reason Admit Date/Time Dec 02, 2016 at 21:01 Initial Consult Date 12/03/16 Type of Consultation: cardiology Reason for Consultation CHF//AF Referring Provider: VIET PARKER MD Exam/Review of Systems Vital Signs Vitals Vital Signs Date Time Temp Pulse Resp B/P Pulse Ox O2 Delivery O2 Flow Rate FiO2 02/18/17 12:11 75 02/18/17 11:26 97.4 18 121/58 94 02/18/17 11:15 30 02/15/17 12:00 Mechanical Ventilator Intake and Output 02/17/17 02/17/17 02/18/17 15:00 23:00 07:00 Intake Total 900 ml 760 ml Output Total 450 ml Balance 900 ml 310 ml Exam Review of Systems: CONSTITUTIONAL: No fevers, chills. PULMONARY: No sob CARDIOVASCULAR: No chest pain/palpitations GASTROINTESTINAL: No nausea/vomiting. GENITOURINARY: No hematuria/dysuria. MUSCULOSKELETAL: No myagias/arthalgias. PSYCHIATRIC: The patient denies depression. NEUROLOGIC: lethargic Constitutional: alert Psych: no complaints Head: normocephalic ENMT: mucosa pink and moist Neck: jvd (9 cm water), other (trached), supple Respiratory: diminished breath sounds Cardiovascular: regular rate and rhythm Gastrointestinal: ascites, soft Musculoskeletal: muscle weakness (generalized) Extremities: other (No focal deficits) Neurological: confused, lethargic Results Result Diagram: 02/18/17 0553 02/18/17 0553 Results 24 hrs Laboratory Tests Test 02/17/17 17:38 02/17/17 20:26 02/18/17 00:27 02/18/17 05:10 Bedside Glucose 127 132 183 175 Test 02/18/17 05:53 02/18/17 09:08 White Blood Count 12.5 H Red Blood Count 3.57 L Hemoglobin 10.1 L Hematocrit 30.9 L Mean Corpuscular Volume 86.6 Mean Corpuscular Hemoglobin 28.3 L Mean Corpuscular Hemoglobin Concent 32.7 Red Cell Distribution Width 15.0 H Platelet Count 233 Mean Platelet Volume 9.7 Neutrophils % 84.2 H Lymphocytes % 6.4 L Monocytes % 7.9 Eosinophils % 0.3 Basophils % 0.2 Nucleated Red Blood Cells % 0.0 Neutrophils # 10.5 H Lymphocytes # 0.8 Monocytes # 1.0 H Eosinophils # 0.0 Basophils # 0.0 Nucleated Red Blood Cells # 0.0 Sodium Level 137 Potassium Level 4.8 Chloride Level 89 L Carbon Dioxide Level 32 H Anion Gap 21 H Blood Urea Nitrogen 85 H Creatinine 2.43 H Glucose Level 166 Calcium Level 8.6 Bedside Glucose 174 Medications Medications Current Medications Ondansetron HCl (Zofran Inj) 4 mg Q6H PRN IV NAUSEA AND/OR VOMITING Last administered on 02/14/17 14:24; Admin Dose 4 MG; Start 12/02/16 at 22:30 Miscellaneous Information 1 ea NOTE XX ; Start 12/02/16 at 23:00 Glucose (Glutose) 15 gm Q15M PRN PO DECREASED GLUCOSE; Start 12/02/16 at 23:00 Glucose (Glutose) 22.5 gm Q15M PRN PO DECREASED GLUCOSE; Start 12/02/16 at 23: 00 Dextrose (D50w Syringe) 25 ml Q15M PRN IV DECREASED GLUCOSE Last administered on 01/26/17 05:21; Admin Dose 25 ML; Start 12/02/16 at 23:00 Dextrose (D50w Syringe) 50 ml Q15M PRN IV DECREASED GLUCOSE Last administered on 01/23/17 04:58; Admin Dose 50 ML; Start 12/02/16 at 23:00 Glucagon (Glucagen) 1 mg Q15M PRN IM DECREASED GLUCOSE; Start 12/02/16 at 23:00 Glucose (Glutose) 15 gm Q15M PRN BUCCAL DECREASED GLUCOSE; Start 12/02/16 at 23 :00 Acetaminophen (Tylenol Supp) 650 mg Q6H PRN [place] ELEVATED TEMPERATURE Last administered on 01/13/17 20:32; Admin Dose 650 MG; Start 12/09/16 at 17:00 Hydralazine HCl (Apresoline) 10 mg Q6H PRN IV SBP>150mm hg Last administered on 12/19/16 08:50; Admin Dose 10 MG; Start 12/11/16 at 10:30 Morphine Sulfate (morphine) 2 mg Q2H PRN IV PAIN LEVEL 4-7; Start 12/13/16 at 10 :00 Collagenase (Santyl) 1 applic DAILY TOP Last administered on 02/18/17 08:09; Admin Dose 1 APPLIC; Start 01/04/17 at 09:00 Metoprolol Tartrate (Lopressor) 5 mg Q4 PRN IV FOR H.R>110; Start 01/12/17 at 17:30 Acetaminophen (Tylenol Liquid) 650 mg Q6H PRN NGT PAIN AND OR ELEVATED TEMP Last administered on 02/03/17 17:37; Admin Dose 650 MG; Start 01/13/17 at 23:30 Acetaminophen/ Hydrocodone Bitart ([place] (5/325)) 1 tab Q6H PRN NGT PAIN LEVEL 4-7; Start 01/13/17 at 23:30 Levetiracetam (Keppra Liquid) 1,000 mg DAILY NGT Last administered on 02/18/17 08:06; Admin Dose 1,000 MG; Start 01/14/17 at 09:00 Meclizine HCl (Antivert) 25 mg TID PRN NGT dizziness; Start 01/13/17 at 20:00 Zolpidem Tartrate (Ambien) 5 mg HS PRN NGT INSOMNIA; Start 01/13/17 at 20:00 Metoprolol Tartrate (Lopressor) 12.5 mg BID NGT Last administered on 02/17/17 09:44; Admin Dose 12.5 MG; Start 01/24/17 at 21:00 Nystatin 5 ml 5 ml Q6 PO Last administered on 02/18/17 05:11; Admin Dose 5 ML; Start 01/31/17 at 12:00 Cefepime HCl 50 ml @ 100 mls/hr DAILY IVPB Last administered on 02/18/17 08:05 ; Admin Dose 100 MLS/HR; Start 02/02/17 at 11:00 Caspofungin/ Sodium Chloride (Cancidas/NS) 250 ml @ 250 mls/hr Q24H IVPB Last administered on 02/17/17 22:31; Admin Dose 250 MLS/HR; Start 02/05/17 at 22:00 Lansoprazole (Prevacid) 30 mg DAILY@06 GTB Last administered on 02/18/17 05:11 ; Admin Dose 30 MG; Start 02/09/17 at 06:00 Zinc Sulfate (Zinc Sulfate) 220 mg DAILY GTB Last administered on 02/18/17 08: 05; Admin Dose 220 MG; Start 02/14/17 at 15:00 Insulin Glargine (Lantus) 46 unit DAILY@20 SC Last administered on 02/17/17 20: 45; Admin Dose 46 UNIT; Start 02/14/17 at 20:00 Multivitamins (Multivitamin) 30 ml DAILY GTB Last administered on 02/18/17 08: 06; Admin Dose 30 ML; Start 02/14/17 at 16:30 Docusate Sodium (Colace Liquid Cup) 100 mg BID GTB Last administered on 08:06; Admin Dose 100 MG; Start 02/14/17 at 21:00 Amiodarone HCl (Cordarone) 200 mg Q12 GTB Last administered on 02/17/17 20:37; Admin Dose 200 MG; Start 02/14/17 at 21:00 Apixaban (Eliquis) 2.5 mg BID GTB Last administered on 02/18/17 08:06; Admin Dose 2.5 MG; Start 02/14/17 at 21:00 Insulin Aspart (Novolog Insulin Pen) (Adult SC Insulin - Mild Algorithm)... Q4 SC Last administered on 02/18/17 09:11; Admin Dose 1 UNIT; Start 02/16/17 at 01: 00 VICENTE LESLIE Feb 18, 2017 13:00
--- NOTE | 2017-02-18 15:05 | PN ---
Date/Time of Note Date/Time of Note DATE: 02/18/17 TIME: 14:58 Assessment/Plan VTE Prophylaxis VTE Prophylaxis Intervention: SCD's Lines/Catheters IV C[facility]ter Type [facility]from [facility] Lock Urinary Cath still in place: No Assessment/Plan Chief Complaint/Hosp Course Patient remains hemodynamically stable, status post hemodialysis, hemoglobin is 10.6 today, patient received blood transfusion day before yesterday. ASSESSMENT AND PLAN: - Sacral decubitus ulcer, Dr. Ureña is asked to see patient in surgical consultation for possible debridement. Continue multivitamins and zinc. - Possible recurrent sepsis, resolving. Continue antibiotics per ID. Dr Celena pritchard is following infection disease consultation. - Dysphagia. S/p G-tube by Dr. Smith. Continue G-tube feeding, monitor residual. - Anemia of blood loss. Continue to monitor H&H, transfuse as needed. - Status post cardiopulmonary arrest on 12/09/2016 and 01/08/2017. Continue ventilatory support. - Anoxic encephalopathy. Continue Keppra. - Status post tracheostomy on 01/23/2017. Continue tracheostomy care. - End-stage renal disease. Continue hemodialysis per nephrology. - Paroxysmal atrial fibrillation. Eliquis is currently held due to bleeding. - Diabetes mellitus type 2. Continue Lantus and NovoLog with sliding scale coverage with Accu-Cheks q. 4 hours. - Diabetic foot ulcer. Continue current wound care. - Osteomyelitis of the distal phalanx of the great left toe. Completed treatment for antibiotics. Continue sequential compression device for deep venous thrombosis prophylaxis and Protonix for peptic ulcer disease prophylaxis. [facility] management [facility] and arrangement for hemodialysis. Further recommendations based on clinical course. Plan of care discussed with Dr. Heredia. Problems: Exam/Review of Systems Vital Signs Vitals Vital Signs Date Time Temp Pulse Resp B/P Pulse Ox O2 Delivery O2 Flow Rate FiO2 02/18/17 13:30 69 02/18/17 13:30 18 02/18/17 13:20 99 100 02/18/17 11:26 97.4 121/58 02/15/17 12:00 Mechanical Ventilator Intake and Output 02/17/17 02/17/17 02/18/17 14:59 22:59 06:59 Intake Total 900 ml 760 ml Output Total 450 ml Balance 900 ml 310 ml Exam Constitutional: non-verbal Head: atraumatic, normocephalic ENMT: other (Nasogastric tube) Neck: other (Tracheostomy), supple Respiratory: diminished breath sounds Cardiovascular: nl pulses Gastrointestinal: non-tender, soft, GT Neurological: unresponsive Results Result Diagram: 02/18/17 0553 02/18/17 0553 Results 24 hrs Laboratory Tests Test 02/17/17 17:38 02/17/17 20:26 02/18/17 00:27 02/18/17 05:10 Bedside Glucose 127 132 183 175 Test 02/18/17 05:53 02/18/17 09:08 02/18/17 13:37 White Blood Count 12.5 H Red Blood Count 3.57 L Hemoglobin 10.1 L Hematocrit 30.9 L Mean Corpuscular Volume 86.6 Mean Corpuscular Hemoglobin 28.3 L Mean Corpuscular Hemoglobin Concent 32.7 Red Cell Distribution Width 15.0 H Platelet Count 233 Mean Platelet Volume 9.7 Neutrophils % 84.2 H Lymphocytes % 6.4 L Monocytes % 7.9 Eosinophils % 0.3 Basophils % 0.2 Nucleated Red Blood Cells % 0.0 Neutrophils # 10.5 H Lymphocytes # 0.8 Monocytes # 1.0 H Eosinophils # 0.0 Basophils # 0.0 Nucleated Red Blood Cells # 0.0 Sodium Level 137 Potassium Level 4.8 Chloride Level 89 L Carbon Dioxide Level 32 H Anion Gap 21 H Blood Urea Nitrogen 85 H Creatinine 2.43 H Glucose Level 166 Calcium Level 8.6 Bedside Glucose 174 208 Medications Medications Current Medications Ondansetron HCl (Zofran Inj) 4 mg Q6H PRN IV NAUSEA AND/OR VOMITING Last administered on 02/14/17 14:24; Admin Dose 4 MG; Start 12/02/16 at 22:30 Miscellaneous Information 1 ea NOTE XX ; Start 12/02/16 at 23:00 Glucose (Glutose) 15 gm Q15M PRN PO DECREASED GLUCOSE; Start 12/02/16 at 23:00 Glucose (Glutose) 22.5 gm Q15M PRN PO DECREASED GLUCOSE; Start 12/02/16 at 23: 00 Dextrose (D50w Syringe) 25 ml Q15M PRN IV DECREASED GLUCOSE Last administered on 01/26/17 05:21; Admin Dose 25 ML; Start 12/02/16 at 23:00 Dextrose (D50w Syringe) 50 ml Q15M PRN IV DECREASED GLUCOSE Last administered on 01/23/17 04:58; Admin Dose 50 ML; Start 12/02/16 at 23:00 Glucagon (Glucagen) 1 mg Q15M PRN IM DECREASED GLUCOSE; Start 12/02/16 at 23:00 Glucose (Glutose) 15 gm Q15M PRN BUCCAL DECREASED GLUCOSE; Start 12/02/16 at 23 :00 Acetaminophen (Tylenol Supp) 650 mg Q6H PRN [place] ELEVATED TEMPERATURE Last administered on 01/13/17 20:32; Admin Dose 650 MG; Start 12/09/16 at 17:00 Hydralazine HCl (Apresoline) 10 mg Q6H PRN IV SBP>150mm hg Last administered on 12/19/16 08:50; Admin Dose 10 MG; Start 12/11/16 at 10:30 Morphine Sulfate (morphine) 2 mg Q2H PRN IV PAIN LEVEL 4-7; Start 12/13/16 at 10 :00 Collagenase (Santyl) 1 applic DAILY TOP Last administered on 02/18/17 08:09; Admin Dose 1 APPLIC; Start 01/04/17 at 09:00 Metoprolol Tartrate (Lopressor) 5 mg Q4 PRN IV FOR H.R>110; Start 01/12/17 at 17:30 Acetaminophen (Tylenol Liquid) 650 mg Q6H PRN NGT PAIN AND [place] ELEVATED TEMP Last administered on 02/03/17 17:37; Admin Dose 650 MG; Start 01/13/17 at 23:30 Acetaminophen/ Hydrocodone Bitart ([place] (5/325)) 1 tab Q6H PRN NGT PAIN LEVEL 4-7; Start 01/13/17 at 23:30 Levetiracetam (Keppra Liquid) 1,000 mg DAILY NGT Last administered on 02/18/17 08:06; Admin Dose 1,000 MG; Start 01/14/17 at 09:00 Meclizine HCl (Antivert) 25 mg TID PRN NGT dizziness; Start 01/13/17 at 20:00 Zolpidem Tartrate (Ambien) 5 mg HS PRN NGT INSOMNIA; Start 01/13/17 at 20:00 Metoprolol Tartrate (Lopressor) 12.5 mg BID NGT Last administered on 02/17/17 09:44; Admin Dose 12.5 MG; Start 01/24/17 at 21:00 Nystatin 5 ml 5 ml Q6 PO Last administered on 02/18/17 05:11; Admin Dose 5 ML; Start 01/31/17 at 12:00 Cefepime HCl 50 ml @ 100 mls/hr DAILY IVPB Last administered on 02/18/17 08:05 ; Admin Dose 100 MLS/HR; Start 02/02/17 at 11:00 Caspofungin/ Sodium Chloride (Cancidas/NS) 250 ml @ 250 mls/hr Q24H IVPB Last administered on 02/17/17 22:31; Admin Dose 250 MLS/HR; Start 02/05/17 at 22:00 Lansoprazole (Prevacid) 30 mg DAILY@06 GTB Last administered on 02/18/17 05:11 ; Admin Dose 30 MG; Start 02/09/17 at 06:00 Zinc Sulfate (Zinc Sulfate) 220 mg DAILY GTB Last administered on 02/18/17 08: 05; Admin Dose 220 MG; Start 02/14/17 at 15:00 Insulin Glargine (Lantus) 46 unit DAILY@20 SC Last administered on 02/17/17 20: 45; Admin Dose 46 UNIT; Start 02/14/17 at 20:00 Multivitamins (Multivitamin) 30 ml DAILY GTB Last administered on 02/18/17 08: 06; Admin Dose 30 ML; Start 02/14/17 at 16:30 Docusate Sodium (Colace Liquid Cup) 100 mg BID GTB Last administered on 08:06; Admin Dose 100 MG; Start 02/14/17 at 21:00 Amiodarone HCl (Cordarone) 200 mg Q12 GTB Last administered on 02/17/17 20:37; Admin Dose 200 MG; Start 02/14/17 at 21:00 Apixaban (Eliquis) 2.5 mg BID GTB Last administered on 02/18/17 08:06; Admin Dose 2.5 MG; Start 02/14/17 at 21:00 Insulin Aspart (Novolog Insulin Pen) (Adult SC Insulin - Mild Algorithm)... Q4 SC Last administered on 02/18/17 13:41; Admin Dose 2 UNIT; Start 02/16/17 at 01: 00 KIMBERLY NOYOLA Feb 18, 2017 15:05
--- NOTE | 2017-02-18 18:02 | CONS ---
Date/Time of Note Date/Time of Note DATE: 02/18/17 TIME: 18:01 Assessment/Plan Assessment/Plan Additional Assessment/Plan -S/p cardiopulmonary arrest on 12/09/2016 and on 01/08/2017 - 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 Blood cultures from HD catheter on 12/13/2016 are negative to date. 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 MRI on 12/06/2016 and bone scan on showed early OM of the distal phalanx of the left great toe and left fourth proximal phalanx. superficial swab grew inna only - s/p right pleural effusion s/p thoracentesis with .9L removed on 12/16/2016 - severe , EF 40-45% per TTE 12/17/16 - DM - Hgb A1c 8.7% - HTN associated with DM Tracheostomy site bleeding Plan: HD today, will conitnue HD on MWF s/p Tracheostomy, on ventilator pt will need HD palcement at a unit where they can do a HD for pt with tracheostomy and PEG tube placemen t- welfare case worker has been instructed to set up [facility] pt has severe , very labile BP sometimes with HD will continue to follow up for HD need Consultation Date/Type/Reason Admit Date/Time Dec 02, 2016 at 21:01 Initial Consult Date Type of Consultation: NEPHROLOGY Referring Provider: VIET PARKER MD 24 HR Interval Summary Free Text/Dictation HD today, afebrile, Bp stable Exam/Review of Systems Vital Signs Vitals Vital Signs Date Time Temp Pulse Resp B/P Pulse Ox O2 Delivery O2 Flow Rate FiO2 02/18/17 17:05 94 18 97 50 02/18/17 15:33 97.9 96/52 02/15/17 12:00 Mechanical Ventilator Intake and Output 02/17/17 02/17/17 02/18/17 15:00 23:00 07:00 Intake Total 900 ml 760 ml Output Total 450 ml Balance 900 ml 310 ml Exam Constitutional: frail, non-verbal Neck: + tracheostomy Respiratory: crackles/rales Cardiovascular: nl pulses, regular rate and rhythm Gastrointestinal: non-tender, soft Musculoskeletal: nl extremities to inspection Extremities: No edema Neurological: confused, lethargic Skin: other (unstageable ulcer on coccyx) Results Result Diagram: 02/18/17 0553 02/18/17 0553 Results 24 hrs Laboratory Tests Test 02/17/17 20:26 02/18/17 00:27 02/18/17 05:10 02/18/17 05:53 Bedside Glucose 132 183 175 White Blood Count 12.5 H Red Blood Count 3.57 L Hemoglobin 10.1 L Hematocrit 30.9 L Mean Corpuscular Volume 86.6 Mean Corpuscular Hemoglobin 28.3 L Mean Corpuscular Hemoglobin Concent 32.7 Red Cell Distribution Width 15.0 H Platelet Count 233 Mean Platelet Volume 9.7 Neutrophils % 84.2 H Lymphocytes % 6.4 L Monocytes % 7.9 Eosinophils % 0.3 Basophils % 0.2 Nucleated Red Blood Cells % 0.0 Neutrophils # 10.5 H Lymphocytes # 0.8 Monocytes # 1.0 H Eosinophils # 0.0 Basophils # 0.0 Nucleated Red Blood Cells # 0.0 Sodium Level 137 Potassium Level 4.8 Chloride Level 89 L Carbon Dioxide Level 32 H Anion Gap 21 H Blood Urea Nitrogen 85 H Creatinine 2.43 H Glucose Level 166 Calcium Level 8.6 Test 02/18/17 09:08 02/18/17 13:37 02/18/17 16:53 Bedside Glucose 174 208 226 H Medications Medications Current Medications Ondansetron HCl (Zofran Inj) 4 mg Q6H PRN IV NAUSEA AND/OR VOMITING Last administered on 02/14/17 14:24; Admin Dose 4 MG; Start 12/02/16 at 22:30 Miscellaneous Information 1 ea NOTE XX ; Start 12/02/16 at 23:00 Glucose (Glutose) 15 gm Q15M PRN PO DECREASED GLUCOSE; Start 12/02/16 at 23:00 Glucose (Glutose) 22.5 gm Q15M PRN PO DECREASED GLUCOSE; Start 12/02/16 at 23: 00 Dextrose (D50w Syringe) 25 ml Q15M PRN IV DECREASED GLUCOSE Last administered on 01/26/17 05:21; Admin Dose 25 ML; Start 12/02/16 at 23:00 Dextrose (D50w Syringe) 50 ml Q15M PRN IV DECREASED GLUCOSE Last administered on 01/23/17 04:58; Admin Dose 50 ML; Start 12/02/16 at 23:00 Glucagon (Glucagen) 1 mg Q15M PRN IM DECREASED GLUCOSE; Start 12/02/16 at 23:00 Glucose (Glutose) 15 gm Q15M PRN BUCCAL DECREASED GLUCOSE; Start 12/02/16 at 23 :00 Acetaminophen (Tylenol Supp) 650 mg Q6H PRN [place] ELEVATED TEMPERATURE Last administered on 01/13/17 20:32; Admin Dose 650 MG; Start 12/09/16 at 17:00 Hydralazine HCl (Apresoline) 10 mg Q6H PRN IV SBP>150mm hg Last administered on 12/19/16 08:50; Admin Dose 10 MG; Start 12/11/16 at 10:30 Morphine Sulfate (morphine) 2 mg Q2H PRN IV PAIN LEVEL 4-7; Start 12/13/16 at 10 :00 Collagenase (Santyl) 1 applic DAILY TOP Last administered on 02/18/17 08:09; Admin Dose 1 APPLIC; Start 01/04/17 at 09:00 Metoprolol Tartrate (Lopressor) 5 mg Q4 PRN IV FOR H.R>110; Start 01/12/17 at 17:30 Acetaminophen (Tylenol Liquid) 650 mg Q6H PRN NGT PAIN AND OR ELEVATED TEMP Last administered on 02/03/17 17:37; Admin Dose 650 MG; Start 01/13/17 at 23:30 Acetaminophen/ Hydrocodone Bitart ([place] (5/325)) 1 tab Q6H PRN NGT PAIN LEVEL 4-7; Start 01/13/17 at 23:30 Levetiracetam (Keppra Liquid) 1,000 mg DAILY NGT Last administered on 02/18/17 08:06; Admin Dose 1,000 MG; Start 01/14/17 at 09:00 Meclizine HCl (Antivert) 25 mg TID PRN NGT dizziness; Start 01/13/17 at 20:00 Zolpidem Tartrate (Ambien) 5 mg HS PRN NGT INSOMNIA; Start 01/13/17 at 20:00 Metoprolol Tartrate (Lopressor) 12.5 mg BID NGT Last administered on 02/17/17 09:44; Admin Dose 12.5 MG; Start 01/24/17 at 21:00 Nystatin 5 ml 5 ml Q6 PO Last administered on 02/18/17 17:04; Admin Dose 5 ML; Start 01/31/17 at 12:00 Cefepime HCl 50 ml @ 100 mls/hr DAILY IVPB Last administered on 02/18/17 08:05 ; Admin Dose 100 MLS/HR; Start 02/02/17 at 11:00 Caspofungin/ Sodium Chloride (Cancidas/NS) 250 ml @ 250 mls/hr Q24H IVPB Last administered on 02/17/17 22:31; Admin Dose 250 MLS/HR; Start 02/05/17 at 22:00 Lansoprazole (Prevacid) 30 mg DAILY@06 GTB Last administered on 02/18/17 05:11 ; Admin Dose 30 MG; Start 02/09/17 at 06:00 Zinc Sulfate (Zinc Sulfate) 220 mg DAILY GTB Last administered on 02/18/17 08: 05; Admin Dose 220 MG; Start 02/14/17 at 15:00 Insulin Glargine (Lantus) 46 unit DAILY@20 SC Last administered on 02/17/17 20: 45; Admin Dose 46 UNIT; Start 02/14/17 at 20:00 Multivitamins (Multivitamin) 30 ml DAILY GTB Last administered on 02/18/17 08: 06; Admin Dose 30 ML; Start 02/14/17 at 16:30 Docusate Sodium (Colace Liquid Cup) 100 mg BID GTB Last administered on 08:06; Admin Dose 100 MG; Start 02/14/17 at 21:00 Amiodarone HCl (Cordarone) 200 mg Q12 GTB Last administered on 02/17/17 20:37; Admin Dose 200 MG; Start 02/14/17 at 21:00 Apixaban (Eliquis) 2.5 mg BID GTB Last administered on 02/18/17 08:06; Admin Dose 2.5 MG; Start 02/14/17 at 21:00 Insulin Aspart (Novolog Insulin Pen) (Adult SC Insulin - Mild Algorithm)... Q4 SC Last administered on 02/18/17 17:00; Admin Dose 3 UNIT; Start 02/16/17 at 01: 00 TASHIA MCGARRY MD Feb 18, 2017 18:01
--- NOTE | 2017-02-18 19:28 | CONS ---
Date/Time of Note Date/Time of Note DATE: 02/18/17 TIME: 19:24 Assessment/Plan Assessment/Plan Chief Complaint/Hosp Course - possible recurrent sepsis due to pneumonia - WBC downward trending - recurrent cardiopulmonary arrest on 12/09/2016 and on 01/08/2017 - s/p sepsis due to possible tracheobronchitis/pneumonia - recurrent pneumonia due to pseudomonas - thrush, refractory to nystatin - funguria - bleeding from trach site - acute on chronic anemia due to acute blood loss, requiring blood transfusion - s/p recurrent sepsis - 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 Blood cultures from HD catheter on 12/13/2016 are negative to date. 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 MRI on 12/06/2016 and bone scan on showed early OM of the distal phalanx of the left great toe and left fourth proximal phalanx. superficial swab grew inna only. At present, no e/o persistent infection - recurrent pleural effusion - s/p right pleural effusion s/p thoracentesis with .9L removed on 12/16/2016; ( Note: there is no pleural fluid cx since orders were placed after Right thoracentesis, and Left thoracentesis was not performed on 12/17/16 d/t insufficient fluid) - ARANZA on CKD that progressed to ESRD and started on HD from 12/09/2016 - oliguria - improved - A fib -> PAF - small nonreversible perfusion abnormality in the inferoapical and inferior carver; EF 36% per Lexiscan 12/24/2016 - severe , EF 40-45% per TTE 12/17/16 - DM - Hgb A1c 8.7% - HTN associated with DM - acute encephalopathy with anoxic brain injury - unstageable decubitus ulcer of coccyx, no evidence of infection - dysphagia s/p G-tube placement 02/08/2017 NOTE: Pt completed 6 weeks (12/03/2016-01/15/2017) of antibiotics to treat early OM of the distal phalanx of the left great toe and left fourth proximal phalanx ; s/p pip/tazo 12/03/16-01/08/17; linezolid 01/08/17-01/20/17; caspofungin 01/12/17-01/21/17 and 02/04/17-02/17/17; tobramycin 02/04/2017- 02/15/17 for pseudomonas; cefepime (02/02/17-02/18/17). recommendations: - discontinue renally dosed cefepime (restarted on 02/02/2017-) - discontinue empiric caspofungin (02/04/2017-) - monitor closely off abx - monitor wbc - continue nystatin for thrush - wound care of the coccyx and upper back Management d/w Dr. Wilson Problems: Consultation Date/Type/Reason Admit Date/Time Dec 02, 2016 at 21:01 Initial Consult Date 12/03/16 Type of Consultation: Infectious Disease Referring Provider: VIET PARKER MD 24 HR Interval Summary Free Text/Dictation Afebrile, DC planning in progress; Pt's son requesting sacral wound debridement prior to DC per nursing. Unable to perform ROS d/t chronic encephalopathy. Exam/Review of Systems Vital Signs Vitals Vital Signs Date Time Temp Pulse Resp B/P Pulse Ox O2 Delivery O2 Flow Rate FiO2 02/18/17 17:05 94 18 97 50 02/18/17 15:33 97.9 96/52 02/15/17 12:00 Mechanical Ventilator Intake and Output 02/17/17 02/17/17 02/18/17 15:00 23:00 07:00 Intake Total 900 ml 760 ml Output Total 450 ml Balance 900 ml 310 ml Exam Constitutional: frail, sleeping, non-verbal at baseline, well developed Head: atraumatic, normocephalic Eyes: nl conjunctiva, nl lids ENMT: other (thrush) Neck: other (tracheostomy intact - no bleeding noted) Respiratory: essentially clear anteriorly Cardiovascular: nl pulses, regular rate and rhythm Gastrointestinal: non-tender, soft, G-tube with tube feeds intact Genitourinary - Male: nl penis, nl scrotum, other (Condom catheter in place) Musculoskeletal: nl extremities to inspection Extremities: No edema Neurological: lethargic/asleep Skin: nl turgor, other (wounds: see nurse note and photos in chart for details ; decub on the coccyx) Results Result Diagram: 02/18/17 0553 02/18/17 0553 Results 24 hrs Laboratory Tests Test 02/17/17 20:26 02/18/17 00:27 02/18/17 05:10 02/18/17 05:53 Bedside Glucose 132 183 175 White Blood Count 12.5 H Red Blood Count 3.57 L Hemoglobin 10.1 L Hematocrit 30.9 L Mean Corpuscular Volume 86.6 Mean Corpuscular Hemoglobin 28.3 L Mean Corpuscular Hemoglobin Concent 32.7 Red Cell Distribution Width 15.0 H Platelet Count 233 Mean Platelet Volume 9.7 Neutrophils % 84.2 H Lymphocytes % 6.4 L Monocytes % 7.9 Eosinophils % 0.3 Basophils % 0.2 Nucleated Red Blood Cells % 0.0 Neutrophils # 10.5 H Lymphocytes # 0.8 Monocytes # 1.0 H Eosinophils # 0.0 Basophils # 0.0 Nucleated Red Blood Cells # 0.0 Sodium Level 137 Potassium Level 4.8 Chloride Level 89 L Carbon Dioxide Level 32 H Anion Gap 21 H Blood Urea Nitrogen 85 H Creatinine 2.43 H Glucose Level 166 Calcium Level 8.6 Test 02/18/17 09:08 02/18/17 13:37 02/18/17 16:53 Bedside Glucose 174 208 226 H Medications Medications Current Medications Ondansetron HCl (Zofran Inj) 4 mg Q6H PRN IV NAUSEA AND/OR VOMITING Last administered on 02/14/17 14:24; Admin Dose 4 MG; Start 12/02/16 at 22:30 Miscellaneous Information 1 ea NOTE XX ; Start 12/02/16 at 23:00 Glucose (Glutose) 15 gm Q15M PRN PO DECREASED GLUCOSE; Start 12/02/16 at 23:00 Glucose (Glutose) 22.5 gm Q15M PRN PO DECREASED GLUCOSE; Start 12/02/16 at 23: 00 Dextrose (D50w Syringe) 25 ml Q15M PRN IV DECREASED GLUCOSE Last administered on 01/26/17 05:21; Admin Dose 25 ML; Start 12/02/16 at 23:00 Dextrose (D50w Syringe) 50 ml Q15M PRN IV DECREASED GLUCOSE Last administered on 01/23/17 04:58; Admin Dose 50 ML; Start 12/02/16 at 23:00 Glucagon (Glucagen) 1 mg Q15M PRN IM DECREASED GLUCOSE; Start 12/02/16 at 23:00 Glucose (Glutose) 15 gm Q15M PRN BUCCAL DECREASED GLUCOSE; Start 12/02/16 at 23 :00 Acetaminophen (Tylenol Supp) 650 mg Q6H PRN [place] ELEVATED TEMPERATURE Last administered on 01/13/17 20:32; Admin Dose 650 MG; Start 12/09/16 at 17:00 Hydralazine HCl (Apresoline) 10 mg Q6H PRN IV SBP>150mm hg Last administered on 12/19/16 08:50; Admin Dose 10 MG; Start 12/11/16 at 10:30 Morphine Sulfate (morphine) 2 mg Q2H PRN IV PAIN LEVEL 4-7; Start 12/13/16 at 10 :00 Collagenase (Santyl) 1 applic DAILY TOP Last administered on 02/18/17 08:09; Admin Dose 1 APPLIC; Start 01/04/17 at 09:00 Metoprolol Tartrate (Lopressor) 5 mg Q4 PRN IV FOR H.R>110; Start 01/12/17 at 17:30 Acetaminophen (Tylenol Liquid) 650 mg Q6H PRN NGT PAIN AND OR ELEVATED TEMP Last administered on 02/03/17 17:37; Admin Dose 650 MG; Start 01/13/17 at 23:30 Acetaminophen/ Hydrocodone Bitart ([place] (5/325)) 1 tab Q6H PRN NGT PAIN LEVEL 4-7; Start 01/13/17 at 23:30 Levetiracetam (Keppra Liquid) 1,000 mg DAILY NGT Last administered on 02/18/17 08:06; Admin Dose 1,000 MG; Start 01/14/17 at 09:00 Meclizine HCl (Antivert) 25 mg TID PRN NGT dizziness; Start 01/13/17 at 20:00 Zolpidem Tartrate (Ambien) 5 mg HS PRN NGT INSOMNIA; Start 01/13/17 at 20:00 Metoprolol Tartrate (Lopressor) 12.5 mg BID NGT Last administered on 02/17/17 09:44; Admin Dose 12.5 MG; Start 01/24/17 at 21:00 Nystatin 5 ml 5 ml Q6 PO Last administered on 02/18/17 17:04; Admin Dose 5 ML; Start 01/31/17 at 12:00 Cefepime HCl 50 ml @ 100 mls/hr DAILY IVPB Last administered on 02/18/17 08:05 ; Admin Dose 100 MLS/HR; Start 02/02/17 at 11:00 Caspofungin/ Sodium Chloride (Cancidas/NS) 250 ml @ 250 mls/hr Q24H IVPB Last administered on 02/17/17 22:31; Admin Dose 250 MLS/HR; Start 02/05/17 at 22:00 Lansoprazole (Prevacid) 30 mg DAILY@06 GTB Last administered on 02/18/17 05:11 ; Admin Dose 30 MG; Start 02/09/17 at 06:00 Zinc Sulfate (Zinc Sulfate) 220 mg DAILY GTB Last administered on 02/18/17 08: 05; Admin Dose 220 MG; Start 02/14/17 at 15:00 Insulin Glargine (Lantus) 46 unit DAILY@20 SC Last administered on 02/17/17 20: 45; Admin Dose 46 UNIT; Start 02/14/17 at 20:00 Multivitamins (Multivitamin) 30 ml DAILY GTB Last administered on 02/18/17 08: 06; Admin Dose 30 ML; Start 02/14/17 at 16:30 Docusate Sodium (Colace Liquid Cup) 100 mg BID GTB Last administered on 08:06; Admin Dose 100 MG; Start 02/14/17 at 21:00 Amiodarone HCl (Cordarone) 200 mg Q12 GTB Last administered on 02/17/17 20:37; Admin Dose 200 MG; Start 02/14/17 at 21:00 Apixaban (Eliquis) 2.5 mg BID GTB Last administered on 02/18/17 08:06; Admin Dose 2.5 MG; Start 02/14/17 at 21:00 Insulin Aspart (Novolog Insulin Pen) (Adult SC Insulin - Mild Algorithm)... Q4 SC Last administered on 02/18/17t 17:00; Admin Dose 3 UNIT; Start 02/16/17 at 01: 00 YUMIKO ALATORRE NP Feb 18, 2017 19:27
[2017-02-18] MEDS: INSULIN GLARGINE [LANtus] 3 ML PEN SC SCH (21:31)
[2017-02-19] VITALS (26 sets, daily range): BP systolic 93–140; BP diastolic 42–65; PULSE 63–85; RESP 16–20
[2017-02-19] MEDS: NYSTATIN SUSP 5 ML CUP PO SCH ×4 (00:23→17:03)
[2017-02-19] MEDS: Insulin NOVOLOG SS MILD Algorithm (NPO/TPN/ENTERAL FEEDS) SC SCH ×5 (00:41→17:07)
[2017-02-19] MEDS: ALBUTEROL 18 GM INHALER INH SCH ×4 (01:19→20:19)
[2017-02-19] MEDS: LANSOPRAZOLE 30 MG CAP GTB SCH (05:55)
--- NOTE | 2017-02-19 07:21 | CONS ---
Date/Time of Note Date/Time of Note DATE: 02/19/17 TIME: 07:19 Assessment/Plan Assessment/Plan Chief Complaint/Hosp Course IMPRESSION: 1. Atrial fibrillation-Having episodes of PAF with reasonable rate control. Currently remains in SR 2. Hypotension-borderline and labile 3. Abnormal electrocardiogram with inferolateral T-wave inversions. 4. Respiratory failure-s/p trach placement 5. Nonhealing toe ulceration-vascular following 6. Peripheral arterial disease by arterial ultrasound of the lower extremities this admission. 7. Diabetes mellitus. 8. Fevers. 9. Positive troponin-downtrended 10.Bradycardia-improved/stable 11.-severe by echo 12.Cardiomyopathy-EF 40-45% by echo/36% by stress with no ischemia but positive scar. EF <30% by echo post arrest 14.Encephalopathy-anoxic 15. s/p cardiopulmonary arrest 01/08 Recc: -Tele -serial ecg -HD for volume removal as tolerated ongoing today -Continue eliquis at this time and follow for recurrent bleeding -Continue PO amio in attempt to maintain SR, now daily -Continue BB as tolerated only following HR/BP closely -Will hold on afterload reduction given severe and thus fixed afterload at valve orifice Problems: Consultation Date/Type/Reason Admit Date/Time Dec 02, 2016 at 21:01 Initial Consult Date 12/03/16 Type of Consultation: cardiology Reason for Consultation PAF//CHF Referring Provider: VIET PARKER MD Exam/Review of Systems Vital Signs Vitals Vital Signs Date Time Temp Pulse Resp B/P Pulse Ox O2 Delivery O2 Flow Rate FiO2 02/19/17 07:15 98.5 72 18 101/49 99 02/19/17 05:39 50 02/15/17 12:00 Mechanical Ventilator Intake and Output 02/18/17 02/18/17 02/19/17 15:00 23:00 07:00 Intake Total 500 ml 750 ml 765 ml Output Total 3000 ml 400 ml 250 ml Balance -2500 ml 350 ml 515 ml Exam Review of Systems: CONSTITUTIONAL: No fevers, chills. PULMONARY: trached CARDIOVASCULAR: No obvious chest pain/palpitations GASTROINTESTINAL: No obvious nausea/vomiting. GENITOURINARY: No hematuria/dysuria. MUSCULOSKELETAL: No obvious myagias/arthalgias. PSYCHIATRIC: The patient denies depression. NEUROLOGIC: lethargic Constitutional: other (sleeping) Psych: no complaints Head: normocephalic ENMT: mucosa pink and moist Neck: jvd (8-9 cm water), supple Respiratory: diminished breath sounds (at bases/B) Cardiovascular: regular rate and rhythm Gastrointestinal: non-tender, soft Musculoskeletal: muscle weakness (generalized) Extremities: edema (none) Neurological: lethargic Results Result Diagram: 02/18/17 0553 02/18/17 0553 Results 24 hrs Laboratory Tests Test 02/18/17 09:08 02/18/17 13:37 02/18/17 16:53 02/18/17 21:24 Bedside Glucose 174 208 226 H 253 H Test 02/19/17 00:27 02/19/17 05:52 Bedside Glucose 238 H 220 Medications Medications Current Medications Ondansetron HCl (Zofran Inj) 4 mg Q6H PRN IV NAUSEA AND/OR VOMITING Last administered on 02/14/17 14:24; Admin Dose 4 MG; Start 12/02/16 at 22:30 Miscellaneous Information 1 ea NOTE XX ; Start 12/02/16 at 23:00 Glucose (Glutose) 15 gm Q15M PRN PO DECREASED GLUCOSE; Start 12/02/16 at 23:00 Glucose (Glutose) 22.5 gm Q15M PRN PO DECREASED GLUCOSE; Start 12/02/16 at 23: 00 Dextrose (D50w Syringe) 25 ml Q15M PRN IV DECREASED GLUCOSE Last administered on 01/26/17 05:21; Admin Dose 25 ML; Start 12/02/16 at 23:00 Dextrose (D50w Syringe) 50 ml Q15M PRN IV DECREASED GLUCOSE Last administered on 01/23/17 04:58; Admin Dose 50 ML; Start 12/02/16 at 23:00 Glucagon (Glucagen) 1 mg Q15M PRN IM DECREASED GLUCOSE; Start 12/02/16 at 23:00 Glucose (Glutose) 15 gm Q15M PRN BUCCAL DECREASED GLUCOSE; Start 12/02/16 at 23 :00 Acetaminophen (Tylenol Supp) 650 mg Q6H PRN [place] ELEVATED TEMPERATURE Last administered on 01/13/17 20:32; Admin Dose 650 MG; Start 12/09/16 at 17:00 Hydralazine HCl (Apresoline) 10 mg Q6H PRN IV SBP>150mm hg Last administered on 12/19/16 08:50; Admin Dose 10 MG; Start 12/11/16 at 10:30 Morphine Sulfate (morphine) 2 mg Q2H PRN IV PAIN LEVEL 4-7; Start 12/13/16 at 10 :00 Collagenase (Santyl) 1 applic DAILY TOP Last administered on 02/18/17 08:09; Admin Dose 1 APPLIC; Start 01/04/17 at 09:00 Metoprolol Tartrate (Lopressor) 5 mg Q4 PRN IV FOR H.R>110; Start 01/12/17 at 17:30 Acetaminophen (Tylenol Liquid) 650 mg Q6H PRN NGT PAIN AND OR ELEVATED TEMP Last administered on 02/03/17 17:37; Admin Dose 650 MG; Start 01/13/17 at 23:30 Acetaminophen/ Hydrocodone Bitart ([place] (5/325)) 1 tab Q6H PRN NGT PAIN LEVEL 4-7; Start 01/13/17 at 23:30 Levetiracetam (Keppra Liquid) 1,000 mg DAILY NGT Last administered on 02/18/17 08:06; Admin Dose 1,000 MG; Start 01/14/17 at 09:00 Meclizine HCl (Antivert) 25 mg TID PRN NGT dizziness; Start 01/13/17 at 20:00 Zolpidem Tartrate (Ambien) 5 mg HS PRN NGT INSOMNIA; Start 01/13/17 at 20:00 Metoprolol Tartrate (Lopressor) 12.5 mg BID NGT Last administered on 02/18/17 20:42; Admin Dose 12.5 MG; Start 01/24/17 at 21:00 Nystatin (Nystatin Susp) 5 ml Q6 PO Last administered on 02/19/17 05:54; Admin Dose 5 ML; Start 01/31/17 at 12:00 Lansoprazole (Prevacid) 30 mg DAILY@06 GTB Last administered on 02/19/17 05:55 ; Admin Dose 30 MG; Start 02/09/17 at 06:00 Zinc Sulfate (Zinc Sulfate) 220 mg DAILY GTB Last administered on 02/18/17 08: 05; Admin Dose 220 MG; Start 02/14/17 at 15:00 Insulin Glargine (Lantus) 46 unit DAILY@20 SC Last administered on 02/18/17 21: 31; Admin Dose 46 UNIT; Start 02/14/17 at 20:00 Multivitamins (Multivitamin) 30 ml DAILY GTB Last administered on 02/18/17 08: 06; Admin Dose 30 ML; Start 02/14/17 at 16:30 Docusate Sodium (Colace Liquid Cup) 100 mg BID GTB Last administered on 20:40; Admin Dose 100 MG; Start 02/14/17 at 21:00 Amiodarone HCl (Cordarone) 200 mg Q12 GTB Last administered on 02/18/17 20:41; Admin Dose 200 MG; Start 02/14/17 at 21:00 Apixaban (Eliquis) 2.5 mg BID GTB Last administered on 02/18/17 20:41; Admin Dose 2.5 MG; Start 02/14/17 at 21:00 Insulin Aspart (Novolog Insulin Pen) (Adult SC Insulin - Mild Algorithm)... Q4 SC Last administered on 02/19/17 06:21; Admin Dose 2 UNIT; Start 02/16/17 at 01: 00 VICENTE LESLIE Feb 19, 2017 07:21
[2017-02-19 07:44] LABS: ADD SCAN DIFF NO
[2017-02-19 07:49] LABS: BASOPHILS % 0.3 % (0.0-2.0); EOSINOPHILS % 0.3 % (0.0-7.0); HEMATOCRIT 29.6 % (42.0-52.0); HEMOGLOBIN 9.4 g/dl (14.0-18.0); LYMPHOCYTES # 0.6 10^3/ul (0.8-2.9); LYMPHOCYTES % 6.7 % (15.0-51.0); MEAN CORPUSCULAR HEMOGLOBIN 28.1 pg (29.0-33.0); MEAN CORPUSCULAR HGB CONC 31.8 g/dl (32.0-37.0); MEAN CORPUSCULAR VOLUME 88.6 fl (82.0-101.0); MEAN PLATELET VOLUME 10.1 fl (7.4-10.4); MONOCYTE # 0.7 10^3/ul (0.3-0.9); MONOCYTES % 7.8 % (0.0-11.0); NEUTROPHILS % 84.1 % (39.0-77.0); PLATELET COUNT 228 10^3/UL (140-415); RED BLOOD COUNT 3.34 10^6/ul (4.70-6.10); RED CELL DISTRIBUTION WIDTH 15.1 % (11.5-14.5); WHITE BLOOD COUNT 9.5 10^3/ul (4.8-10.8)
[2017-02-19 08:09] LABS: CALCIUM 8.7 mg/dl (8.4-10.2); CREATININE 1.74 mg/dl (0.61-1.24); POTASSIUM 4.1 mmol/L (3.5-5.1)
[2017-02-19] MEDS: DOCUSATE SODIUM 10 MG/ML (10ML CUP) GTB SCH ×2 (09:13→20:48)
[2017-02-19] MEDS: MULTIVITAMINS 30 ML CUP GTB SCH (09:13)
[2017-02-19] MEDS: LEVETIRACETAM (100 MG/ML) 5ML CUP NGT SCH (09:13)
[2017-02-19] MEDS: METOPROLOL 25 MG TAB NGT SCH ×2 (09:14→20:47)
[2017-02-19] MEDS: ZINC SULFATE 220 MG CAP GTB SCH (09:14)
[2017-02-19] MEDS: APIXABAN 5 MG TABLET GTB SCH ×2 (09:15→20:48)
[2017-02-19] MEDS: AMIODARONE 200 MG TAB GTB SCH (09:15)
[2017-02-19] MEDS: COLLAGENASE 30 GM TUBE TOP SCH (09:15)
--- NOTE | 2017-02-19 11:20 | PN ---
Date/Time of Note Date/Time of Note DATE: 02/19/17 TIME: 11:19 Assessment/Plan VTE Prophylaxis VTE Prophylaxis Intervention: other Lines/Catheters IV Catheter Type (from [facility]): Saline Lock Urinary Cath still in place: No Assessment/Plan Chief Complaint/Hosp Course - Sacral decubitus ulcer, Dr. Ureña is asked to see patient in surgical consultation for possible debridement. Continue multivitamins and zinc. - Possible recurrent sepsis, resolving. Continue antibiotics per ID. Dr Celena pritchard is following infection disease consultation. - Dysphagia. S/p G-tube by Dr. Smith. Continue G-tube feeding, monitor residual. - Anemia of blood loss. Continue to monitor H&H, transfuse as needed. - Status post cardiopulmonary arrest on 12/09/2016 and 01/08/2017. Continue ventilatory support. - Anoxic encephalopathy. Continue Keppra. - Status post tracheostomy on 01/23/2017. Continue tracheostomy care. - End-stage renal disease. Continue hemodialysis per nephrology. - Paroxysmal atrial fibrillation. Eliquis is currently held due to bleeding. - Diabetes mellitus type 2. Continue Lantus and NovoLog with sliding scale coverage with Accu-Cheks q. 4 hours. - Diabetic foot ulcer. Continue current wound care. - Osteomyelitis of the distal phalanx of the great left toe. Completed treatment for antibiotics. Problems: Subjective 24 Hr Interval Summary Free Text/Dictation Patient is sedated, trach in place Exam/Review of Systems Vital Signs Vitals Vital Signs Date Time Temp Pulse Resp B/P Pulse Ox O2 Delivery O2 Flow Rate FiO2 02/19/17 11:15 98.5 64 18 93/42 99 02/19/17 05:39 50 02/15/17 12:00 Mechanical Ventilator Intake and Output 02/18/17 02/18/17 02/19/17 15:00 23:00 07:00 Intake Total 500 ml 750 ml 765 ml Output Total 3000 ml 400 ml 250 ml Balance -2500 ml 350 ml 515 ml Exam Constitutional: well developed Head: atraumatic, normocephalic Neck: supple Respiratory: diminished breath sounds Cardiovascular: regular rate and rhythm Gastrointestinal: non-tender, soft Extremities: normal pulses Results Result Diagram: 02/19/17 0605 02/19/17 06 Results 24 hrs Laboratory Tests Test 02/18/17 13:37 02/18/17 16:53 02/18/17 21:24 02/19/17 00:27 Bedside Glucose 208 226 H 253 H 238 H Test 02/19/17 05:52 02/19/17 06:05 02/19/17 09:03 Bedside Glucose 220 209 White Blood Count 9.5 # Red Blood Count 3.34 L Hemoglobin 9.4 L Hematocrit 29.6 L Mean Corpuscular Volume 88.6 Mean Corpuscular Hemoglobin 28.1 L Mean Corpuscular Hemoglobin Concent 31.8 L Red Cell Distribution Width 15.1 H Platelet Count 228 Mean Platelet Volume 10.1 Neutrophils % 84.1 H Lymphocytes % 6.7 L Monocytes % 7.8 Eosinophils % 0.3 Basophils % 0.3 Nucleated Red Blood Cells % 0.0 Neutrophils # 8.0 H Lymphocytes # 0.6 L Monocytes # 0.7 Eosinophils # 0.0 Basophils # 0.0 Nucleated Red Blood Cells # 0.0 Sodium Level 144 Potassium Level 4.1 Chloride Level 102 # Carbon Dioxide Level 30 Anion Gap 16 Blood Urea Nitrogen 58 H Creatinine 1.74 H Glucose Level 203 Calcium Level 8.7 Medications Medications Current Medications Ondansetron HCl (Zofran Inj) 4 mg Q6H PRN IV NAUSEA AND/OR VOMITING Last administered on 02/14/17 14:24; Admin Dose 4 MG; Start 12/02/16 at 22:30 Miscellaneous Information 1 ea NOTE XX ; Start 12/02/16 at 23:00 Glucose (Glutose) 15 gm Q15M PRN PO DECREASED GLUCOSE; Start 12/02/16 at 23:00 Glucose (Glutose) 22.5 gm Q15M PRN PO DECREASED GLUCOSE; Start 12/02/16 at 23: 00 Dextrose (D50w Syringe) 25 ml Q15M PRN IV DECREASED GLUCOSE Last administered on 01/26/17 05:21; Admin Dose 25 ML; Start 12/02/16 at 23:00 Dextrose (D50w Syringe) 50 ml Q15M PRN IV DECREASED GLUCOSE Last administered on 01/23/17 04:58; Admin Dose 50 ML; Start 12/02/16 at 23:00 Glucagon (Glucagen) 1 mg Q15M PRN IM DECREASED GLUCOSE; Start 12/02/16 at 23:00 Glucose (Glutose) 15 gm Q15M PRN BUCCAL DECREASED GLUCOSE; Start 12/02/16 at 23 :00 Acetaminophen (Tylenol Supp) 650 mg Q6H PRN [place] ELEVATED TEMPERATURE Last administered on 01/13/17 20:32; Admin Dose 650 MG; Start 12/09/16 at 17:00 Hydralazine HCl (Apresoline) 10 mg Q6H PRN IV SBP>150mm hg Last administered on 12/19/16 08:50; Admin Dose 10 MG; Start 12/11/16 at 10:30 Morphine Sulfate (morphine) 2 mg Q2H PRN IV PAIN LEVEL 4-7; Start 12/13/16 at 10 :00 Collagenase (Santyl) 1 applic DAILY TOP Last administered on 02/19/17 09:15; Admin Dose 1 APPLIC; Start 01/04/17 at 09:00 Metoprolol Tartrate (Lopressor) 5 mg Q4 PRN IV FOR H.R>110; Start 01/12/17 at 17:30 Acetaminophen (Tylenol Liquid) 650 mg Q6H PRN NGT PAIN AND OR ELEVATED TEMP Last administered on 02/03/17 17:37; Admin Dose 650 MG; Start 01/13/17 at 23:30 Acetaminophen/ Hydrocodone Bitart ([place] (5/325)) 1 tab Q6H PRN NGT PAIN LEVEL 4-7; Start 01/13/17 at 23:30 Levetiracetam (Keppra Liquid) 1,000 mg DAILY NGT Last administered on 02/19/17 09:13; Admin Dose 1,000 MG; Start 01/14/17 at 09:00 Meclizine HCl (Antivert) 25 mg TID PRN NGT dizziness; Start 01/13/17 at 20:00 Zolpidem Tartrate (Ambien) 5 mg HS PRN NGT INSOMNIA; Start 01/13/17 at 20:00 Metoprolol Tartrate (Lopressor) 12.5 mg BID NGT Last administered on 02/19/17 09:14; Admin Dose 12.5 MG; Start 01/24/17 at 21:00 Nystatin (Nystatin Susp) 5 ml Q6 PO Last administered on 02/19/17 05:54; Admin Dose 5 ML; Start 01/31/17 at 12:00 Lansoprazole (Prevacid) 30 mg DAILY@06 GTB Last administered on 02/19/17 05:55 ; Admin Dose 30 MG; Start 02/09/17 at 06:00 Zinc Sulfate (Zinc Sulfate) 220 mg DAILY GTB Last administered on 02/19/17 09: 14; Admin Dose 220 MG; Start 02/14/17 at 15:00 Insulin Glargine (Lantus) 46 unit DAILY@20 SC Last administered on 02/18/17 21: 31; Admin Dose 46 UNIT; Start 02/14/17 at 20:00 Multivitamins (Multivitamin) 30 ml DAILY GTB Last administered on 02/19/17 09: 13; Admin Dose 30 ML; Start 02/14/17 at 16:30 Docusate Sodium (Colace Liquid Cup) 100 mg BID GTB Last administered on 09:13; Admin Dose 100 MG; Start 02/14/17 at 21:00 Apixaban (Eliquis) 2.5 mg BID GTB Last administered on 02/19/17 09:15; Admin Dose 2.5 MG; Start 02/14/17 at 21:00 Insulin Aspart (Novolog Insulin Pen) (Adult SC Insulin - Mild Algorithm)... Q4 SC Last administered on 02/19/17 09:16; Admin Dose 2 UNIT; Start 02/16/17 at 01: 00 Amiodarone HCl (Cordarone) 200 mg DAILY GTB Last administered on 02/19/17 09:15 ; Admin Dose 200 MG; Start 02/19/17 at 09:00 ELTON MARMOLEJO Feb 19, 2017 11:20
--- NOTE | 2017-02-19 11:55 | CONS ---
Date/Time of Note Date/Time of Note DATE: 02/19/17 TIME: 11:54 Assessment/Plan Assessment/Plan Chief Complaint/Hosp Course -- recurrent cardiopulmonary arrest on 12/09/2016 and on 01/08/2017 possible recurrent sepsis due to pneumonia - recurrent cardiopulmonary arrest on 12/09/2016 and on 01/08/2017 - s/p sepsis due to possible tracheobronchitis/pneumonia - possible recurrent sepsis due to pneumonia - WBC downward trending - recurrent cardiopulmonary arrest on 12/09/2016 and on 01/08/2017 - s/p sepsis due to possible tracheobronchitis/pneumonia - recurrent pneumonia due to pseudomonas - thrush, refractory to nystatin - funguria - bleeding from trach site - acute on chronic anemia due to acute blood loss, requiring blood transfusion - s/p recurrent sepsis - 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 Blood cultures from HD catheter on 12/13/2016 are negative to date. 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 MRI on 12/06/2016 and bone scan on showed early OM of the distal phalanx of the left great toe and left fourth proximal phalanx. superficial swab grew inna only. At present, no e/o persistent infection - recurrent pleural effusion - s/p right pleural effusion s/p thoracentesis with .9L removed on 12/16/2016; ( Note: there is no pleural fluid cx since orders were placed after Right thoracentesis, and Left thoracentesis was not performed on 12/17/16 d/t insufficient fluid) - ARANZA on CKD that progressed to ESRD and started on HD from 12/09/2016 - oliguria - improved - A fib -> PAF - small nonreversible perfusion abnormality in the inferoapical and inferior carver; EF 36% per Lexiscan 12/24/2016 - severe , EF 40-45% per TTE 12/17/16 - DM - Hgb A1c 8.7% - HTN associated with DM - acute encephalopathy with anoxic brain injury - unstageable decubitus ulcer of coccyx, no evidence of infection - dysphagia s/p G-tube placement 02/08/2017 NOTE: Pt completed 6 weeks (12/03/2016-01/15/2017) of antibiotics to treat early OM of the distal phalanx of the left great toe and left fourth proximal phalanx ; s/p pip/tazo 12/03/16-01/08/17; linezolid 01/08/17-01/20/17; caspofungin 01/12/17-01/21/17 and 02/04/17-02/17/17; tobramycin 02/04/2017- 02/15/17 for pseudomonas; cefepime (02/02/17-02/18/17). recommendations: - monitor closely off abx - monitor wbc - continue nystatin for thrush - wound care of the coccyx and upper back Problems: Consultation Date/Type/Reason Admit Date/Time Dec 02, 2016 at 21:01 Type of Consultation: id Referring Provider: VIET PARKER MD 24 HR Interval Summary Free Text/Dictation d/w family at bedside Exam/Review of Systems Vital Signs Vitals Vital Signs Date Time Temp Pulse Resp B/P Pulse Ox O2 Delivery O2 Flow Rate FiO2 02/19/17 11:15 98.5 64 18 93/42 99 02/19/17 05:39 50 02/15/17 12:00 Mechanical Ventilator Intake and Output 02/18/17 02/18/17 02/19/17 15:00 23:00 07:00 Intake Total 500 ml 750 ml 765 ml Output Total 3000 ml 400 ml 250 ml Balance -2500 ml 350 ml 515 ml Exam Constitutional: non-verbal Psych: nl mood/affect, no complaints Head: atraumatic, normocephalic ENMT: nl external ears & nose, nl lips & teeth, nl nasal mucosa & septum Respiratory: clear to auscultation Cardiovascular: regular rate and rhythm Gastrointestinal: soft Musculoskeletal: nl extremities to inspection Results Result Diagram: 02/19/17 0605 02/19/17 0605 Results 24 hrs Laboratory Tests Test 02/18/17 13:37 02/18/17 16:53 02/18/17 21:24 02/19/17 00:27 Bedside Glucose 208 226 H 253 H 238 H Test 02/19/17 05:52 02/19/17 06:05 02/19/17 09:03 Bedside Glucose 220 209 White Blood Count 9.5 # Red Blood Count 3.34 L Hemoglobin 9.4 L Hematocrit 29.6 L Mean Corpuscular Volume 88.6 Mean Corpuscular Hemoglobin 28.1 L Mean Corpuscular Hemoglobin Concent 31.8 L Red Cell Distribution Width 15.1 H Platelet Count 228 Mean Platelet Volume 10.1 Neutrophils % 84.1 H Lymphocytes % 6.7 L Monocytes % 7.8 Eosinophils % 0.3 Basophils % 0.3 Nucleated Red Blood Cells % 0.0 Neutrophils # 8.0 H Lymphocytes # 0.6 L Monocytes # 0.7 Eosinophils # 0.0 Basophils # 0.0 Nucleated Red Blood Cells # 0.0 Sodium Level 144 Potassium Level 4.1 Chloride Level 102 # Carbon Dioxide Level 30 Anion Gap 16 Blood Urea Nitrogen 58 H Creatinine 1.74 H Glucose Level 203 Calcium Level 8.7 Medications Medications Current Medications Ondansetron HCl (Zofran Inj) 4 mg Q6H PRN IV NAUSEA AND/OR VOMITING Last administered on 02/14/17 14:24; Admin Dose 4 MG; Start 12/02/16 at 22:30 Miscellaneous Information 1 ea NOTE XX ; Start 12/02/16 at 23:00 Glucose (Glutose) 15 gm Q15M PRN PO DECREASED GLUCOSE; Start 12/02/16 at 23:00 Glucose (Glutose) 22.5 gm Q15M PRN PO DECREASED GLUCOSE; Start 12/02/16 at 23: 00 Dextrose (D50w Syringe) 25 ml Q15M PRN IV DECREASED GLUCOSE Last administered on 01/26/17 05:21; Admin Dose 25 ML; Start 12/02/16 at 23:00 Dextrose (D50w Syringe) 50 ml Q15M PRN IV DECREASED GLUCOSE Last administered on 01/23/17 04:58; Admin Dose 50 ML; Start 12/02/16 at 23:00 Glucagon (Glucagen) 1 mg Q15M PRN IM DECREASED GLUCOSE; Start 12/02/16 at 23:00 Glucose (Glutose) 15 gm Q15M PRN BUCCAL DECREASED GLUCOSE; Start 12/02/16 at 23 :00 Acetaminophen (Tylenol Supp) 650 mg Q6H PRN [place] ELEVATED TEMPERATURE Last administered on 01/13/17 20:32; Admin Dose 650 MG; Start 12/09/16 at 17:00 Hydralazine HCl (Apresoline) 10 mg Q6H PRN IV SBP>150mm hg Last administered on 12/19/16 08:50; Admin Dose 10 MG; Start 12/11/16 at 10:30 Morphine Sulfate (morphine) 2 mg Q2H PRN IV PAIN LEVEL 4-7; Start 12/13/16 at 10 :00 Collagenase (Santyl) 1 applic DAILY TOP Last administered on 02/19/17 09:15; Admin Dose 1 APPLIC; Start 01/04/17 at 09:00 Metoprolol Tartrate (Lopressor) 5 mg Q4 PRN IV FOR H.R>110; Start 01/12/17 at 17:30 Acetaminophen (Tylenol Liquid) 650 mg Q6H PRN NGT PAIN AND OR ELEVATED TEMP Last administered on 02/03/17 17:37; Admin Dose 650 MG; Start 01/13/17 at 23:30 Acetaminophen/ Hydrocodone Bitart ([place] (5/325)) 1 tab Q6H PRN NGT PAIN LEVEL 4-7; Start 01/13/17 at 23:30 Levetiracetam (Keppra Liquid) 1,000 mg DAILY NGT Last administered on 02/19/17 09:13; Admin Dose 1,000 MG; Start 01/14/17 at 09:00 Meclizine HCl (Antivert) 25 mg TID PRN NGT dizziness; Start 01/13/17 at 20:00 Zolpidem Tartrate (Ambien) 5 mg HS PRN NGT INSOMNIA; Start 01/13/17 at 20:00 Metoprolol Tartrate (Lopressor) 12.5 mg BID NGT Last administered on 02/19/17 09:14; Admin Dose 12.5 MG; Start 01/24/17 at 21:00 Nystatin (Nystatin Susp) 5 ml Q6 PO Last administered on 02/19/17 05:54; Admin Dose 5 ML; Start 01/31/17 at 12:00 Lansoprazole (Prevacid) 30 mg DAILY@06 GTB Last administered on 02/19/17 05:55 ; Admin Dose 30 MG; Start 02/09/17 at 06:00 Zinc Sulfate (Zinc Sulfate) 220 mg DAILY GTB Last administered on 02/19/17 09: 14; Admin Dose 220 MG; Start 02/14/17 at 15:00 Insulin Glargine (Lantus) 46 unit DAILY@20 SC Last administered on 02/18/17 21: 31; Admin Dose 46 UNIT; Start 02/14/17 at 20:00 Multivitamins (Multivitamin) 30 ml DAILY GTB Last administered on 02/19/17 09: 13; Admin Dose 30 ML; Start 02/14/17 at 16:30 Docusate Sodium (Colace Liquid Cup) 100 mg BID GTB Last administered on 09:13; Admin Dose 100 MG; Start 02/14/17 at 21:00 Apixaban (Eliquis) 2.5 mg BID GTB Last administered on 02/19/17 09:15; Admin Dose 2.5 MG; Start 02/14/17 at 21:00 Insulin Aspart (Novolog Insulin Pen) (Adult SC Insulin - Mild Algorithm)... Q4 SC Last administered on 02/19/17 09:16; Admin Dose 2 UNIT; Start 02/16/17 at 01: 00 Amiodarone HCl (Cordarone) 200 mg DAILY GTB Last administered on 02/19/17 09:15 ; Admin Dose 200 MG; Start 02/19/17 at 09:00 NIKHIL RAM MD Feb 19, 2017 11:54
--- NOTE | 2017-02-19 13:35 | CONS ---
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 Blood cultures from HD catheter on 12/13/2016 are negative to date. 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 MRI on 12/06/2016 and bone scan on showed early OM of the distal phalanx of the left great toe and left fourth proximal phalanx. superficial swab grew inna only - s/p right pleural effusion s/p thoracentesis with .9L removed on 12/16/2016 - severe , EF 40-45% per TTE 12/17/16 - DM - Hgb A1c 8.7% - HTN associated with DM - sp Tracheostomy site bleeding Plan: HD today, will conitnue HD on MWF s/p Tracheostomy, on ventilator pt will need HD palcement at a unit where they can do a HD for pt with tracheostomy and PEG tube placemen t- hospice case manager has been instructed to set up [facility] pt has severe , very labile BP sometimes with HD will continue to follow up for HD need Plan of`care Dw Dr Evelina Remy/staff/ patient family. Consultation Date/Type/Reason Admit Date/Time Dec 02, 2016 at 21:01 Initial Consult Date 12/08/16 Type of Consultation: id Referring Provider: VIET PARKER MD 24 HR Interval Summary Subjective hx not possible: pt non-verbal Constitutional: requiring IVF, requiring O2 Exam/Review of Systems Vital Signs Vitals Vital Signs Date Time Temp Pulse Resp B/P Pulse Ox O2 Delivery O2 Flow Rate FiO2 02/19/17 12:13 63 02/19/17 11:15 98.5 18 93/42 99 02/19/17 08:30 40 02/15/17 12:00 Mechanical Ventilator Intake and Output 02/18/17 02/18/17 02/19/17 15:00 23:00 07:00 Intake Total 500 ml 750 ml 765 ml Output Total 3000 ml 400 ml 250 ml Balance -2500 ml 350 ml 515 ml Exam Respiratory: diminished breath sounds Cardiovascular: nl pulses, other (SR -80's), regular rate and rhythm Gastrointestinal: non-tender, soft Neurological: unresponsive Results Result Diagram: 02/19/17 0605 02/19/17 06 Results 24 hrs Laboratory Tests Test 02/18/17 13:37 02/18/17 16:53 02/18/17 21:24 02/19/17 00:27 Bedside Glucose 208 226 H 253 H 238 H Test 02/19/17 05:52 02/19/17 06:05 02/19/17 09:03 02/19/17 12:58 Bedside Glucose 220 209 240 H White Blood Count 9.5 # Red Blood Count 3.34 L Hemoglobin 9.4 L Hematocrit 29.6 L Mean Corpuscular Volume 88.6 Mean Corpuscular Hemoglobin 28.1 L Mean Corpuscular Hemoglobin Concent 31.8 L Red Cell Distribution Width 15.1 H Platelet Count 228 Mean Platelet Volume 10.1 Neutrophils % 84.1 H Lymphocytes % 6.7 L Monocytes % 7.8 Eosinophils % 0.3 Basophils % 0.3 Nucleated Red Blood Cells % 0.0 Neutrophils # 8.0 H Lymphocytes # 0.6 L Monocytes # 0.7 Eosinophils # 0.0 Basophils # 0.0 Nucleated Red Blood Cells # 0.0 Sodium Level 144 Potassium Level 4.1 Chloride Level 102 # Carbon Dioxide Level 30 Anion Gap 16 Blood Urea Nitrogen 58 H Creatinine 1.74 H Glucose Level 203 Calcium Level 8.7 Medications Medications Current Medications Ondansetron HCl (Zofran Inj) 4 mg Q6H PRN IV NAUSEA AND/OR VOMITING Last administered on 02/14/17t 14:24; Admin Dose 4 MG; Start 12/02/16 at 22:30 Miscellaneous Information 1 ea NOTE XX ; Start 12/02/16 at 23:00 Glucose (Glutose) 15 gm Q15M PRN PO DECREASED GLUCOSE; Start 12/02/16 at 23:00 Glucose (Glutose) 22.5 gm Q15M PRN PO DECREASED GLUCOSE; Start 12/02/16 at 23: 00 Dextrose (D50w Syringe) 25 ml Q15M PRN IV DECREASED GLUCOSE Last administered on 01/26/17 05:21; Admin Dose 25 ML; Start 12/02/16 at 23:00 Dextrose (D50w Syringe) 50 ml Q15M PRN IV DECREASED GLUCOSE Last administered on 01/23/17 04:58; Admin Dose 50 ML; Start 12/02/16 at 23:00 Glucagon (Glucagen) 1 mg Q15M PRN IM DECREASED GLUCOSE; Start 12/02/16 at 23:00 Glucose (Glutose) 15 gm Q15M PRN BUCCAL DECREASED GLUCOSE; Start 12/02/16 at 23 :00 Acetaminophen (Tylenol Supp) 650 mg Q6H PRN [place] ELEVATED TEMPERATURE Last administered on 01/13/17 20:32; Admin Dose 650 MG; Start 12/09/16 at 17:00 Hydralazine HCl (Apresoline) 10 mg Q6H PRN IV SBP>150mm hg Last administered on 12/19/16 08:50; Admin Dose 10 MG; Start 12/11/16 at 10:30 Morphine Sulfate (morphine) 2 mg Q2H PRN IV PAIN LEVEL 4-7; Start 12/13/16 at 10 :00 Collagenase (Santyl) 1 applic DAILY TOP Last administered on 02/19/17 09:15; Admin Dose 1 APPLIC; Start 01/04/17 at 09:00 Metoprolol Tartrate (Lopressor) 5 mg Q4 PRN IV FOR H.R>110; Start 01/12/17 at 17:30 Acetaminophen (Tylenol Liquid) 650 mg Q6H PRN NGT PAIN AND [place] ELEVATED TEMP Last administered on 02/03/17 17:37; Admin Dose 650 MG; Start 01/13/17 at 23:30 Acetaminophen/ Hydrocodone Bitart ([place] (5/325)) 1 tab Q6H PRN NGT PAIN LEVEL 4-7; Start 01/13/17 at 23:30 Levetiracetam (Keppra Liquid) 1,000 mg DAILY NGT Last administered on 02/19/17 09:13; Admin Dose 1,000 MG; Start 01/14/17 at 09:00 Meclizine HCl (Antivert) 25 mg TID PRN NGT dizziness; Start 01/13/17 at 20:00 Zolpidem Tartrate (Ambien) 5 mg HS PRN NGT INSOMNIA; Start 01/13/17 at 20:00 Metoprolol Tartrate (Lopressor) 12.5 mg BID NGT Last administered on 02/19/17 09:14; Admin Dose 12.5 MG; Start 01/24/17 at 21:00 Nystatin (Nystatin Susp) 5 ml Q6 PO Last administered on 02/19/17 13:00; Admin Dose 5 ML; Start 01/31/17 at 12:00 Lansoprazole (Prevacid) 30 mg DAILY@06 GTB Last administered on 02/19/17 05:55 ; Admin Dose 30 MG; Start 02/09/17 at 06:00 Zinc Sulfate (Zinc Sulfate) 220 mg DAILY GTB Last administered on 02/19/17 09: 14; Admin Dose 220 MG; Start 02/14/17 at 15:00 Insulin Glargine (Lantus) 46 unit DAILY@20 SC Last administered on 02/18/17 21: 31; Admin Dose 46 UNIT; Start 02/14/17 at 20:00 Multivitamins (Multivitamin) 30 ml DAILY GTB Last administered on 02/19/17 09: 13; Admin Dose 30 ML; Start 02/14/17 at 16:30 Docusate Sodium (Colace Liquid Cup) 100 mg BID GTB Last administered on 09:13; Admin Dose 100 MG; Start 02/14/17 at 21:00 Apixaban (Eliquis) 2.5 mg BID GTB Last administered on 02/19/17 09:15; Admin Dose 2.5 MG; Start 02/14/17 at 21:00 Insulin Aspart (Novolog Insulin Pen) (Adult SC Insulin - Mild Algorithm)... Q4 SC Last administered on 02/19/17 13:15; Admin Dose 3 UNIT; Start 02/16/17 at 01: 00 Amiodarone HCl (Cordarone) 200 mg DAILY GTB Last administered on 02/19/17 09:15 ; Admin Dose 200 MG; Start 02/19/17 at 09:00 YULIANA SIMMONS Feb 19, 2017 13:34
[2017-02-19] MEDS: INSULIN GLARGINE [LANtus] 3 ML PEN SC SCH (20:04)
[2017-02-19] MEDS: INSULIN ASPART [NOVOLOG] 3 ML PEN SC SCH (20:57)
[2017-02-20] VITALS (24 sets, daily range): BP systolic 106–141; BP diastolic 50–64; PULSE 68–94; RESP 17–21
[2017-02-20] MEDS: NYSTATIN SUSP 5 ML CUP PO SCH ×4 (00:21→17:14)
[2017-02-20] MEDS: ALBUTEROL 18 GM INHALER INH SCH ×4 (01:21→20:56)
[2017-02-20] MEDS: ACCU-CHEK XX SCH (02:12)
[2017-02-20] MEDS: INSULIN ASPART [NOVOLOG] 3 ML PEN SC SCH ×4 (02:17→22:02)
[2017-02-20] MEDS: LANSOPRAZOLE 30 MG CAP GTB SCH (06:38)
[2017-02-20] MEDS: ZINC SULFATE 220 MG CAP GTB SCH (08:58)
[2017-02-20] MEDS: METOPROLOL 25 MG TAB NGT SCH ×2 (08:58→22:06)
[2017-02-20] MEDS: AMIODARONE 200 MG TAB GTB SCH (08:58)
[2017-02-20] MEDS: APIXABAN 5 MG TABLET GTB SCH ×2 (08:58→22:06)
[2017-02-20] MEDS: COLLAGENASE 30 GM TUBE TOP SCH (08:59)
[2017-02-20] MEDS: LEVETIRACETAM (100 MG/ML) 5ML CUP NGT SCH (08:59)
[2017-02-20] MEDS: DOCUSATE SODIUM 10 MG/ML (10ML CUP) GTB SCH ×2 (08:59→22:05)
[2017-02-20] MEDS: MULTIVITAMINS 30 ML CUP GTB SCH (08:59)
--- NOTE | 2017-02-20 11:28 | CONS ---
Date/Time of Note Date/Time of Note DATE: 02/20/17 TIME: 11:25 Assessment/Plan Assessment/Plan Chief Complaint/Hosp Course IMPRESSION: 1. Atrial fibrillation-Having episodes of PAF with reasonable rate control. Currently remains in SR 2. Hypotension-borderline but has remained relatively stable 3. Abnormal electrocardiogram with inferolateral T-wave inversions. 4. Respiratory failure-s/p trach placement 5. Nonhealing toe ulceration-vascular following 6. Peripheral arterial disease by arterial ultrasound of the lower extremities this admission. 7. Diabetes mellitus. 8. Fevers. 9. Positive troponin-downtrended 10.Bradycardia-improved/stable 11.-severe by echo 12.Cardiomyopathy-EF 40-45% by echo/36% by stress with no ischemia but positive scar. EF <30% by echo post arrest 14.Encephalopathy-anoxic 15. s/p cardiopulmonary arrest 01/08 Recc: -Tele -serial ecg -HD for volume removal as tolerated ongoing today -Continue eliquis at this time and follow for recurrent bleeding -Continue PO amio in attempt to maintain SR, now daily -Continue BB as tolerated only following HR/BP closely -Will hold on afterload reduction given severe and thus fixed afterload at valve orifice Problems: Consultation Date/Type/Reason Admit Date/Time Dec 02, 2016 at 21:01 Initial Consult Date 12/03/16 Type of Consultation: cardiology Reason for Consultation PAF//cardiomyopathy Referring Provider: VIET PARKER MD Exam/Review of Systems Vital Signs Vitals Vital Signs Date Time Temp Pulse Resp B/P Pulse Ox O2 Delivery O2 Flow Rate FiO2 02/20/17 10:51 98.7 69 18 106/53 98 02/20/17 08:00 30 Intake and Output 02/19/17 02/19/17 02/20/17 15:00 23:00 07:00 Intake Total 755 ml 755 ml Output Total 200 ml 400 ml Balance 555 ml 355 ml Exam Review of Systems: CONSTITUTIONAL: No fevers, chills. PULMONARY: No sob CARDIOVASCULAR: No chest pain/palpitations GASTROINTESTINAL: No nausea/vomiting. GENITOURINARY: No hematuria/dysuria. MUSCULOSKELETAL: No myagias/arthalgias. PSYCHIATRIC: The patient denies depression. NEUROLOGIC: No weakness Constitutional: other (encephalopthic) Psych: no complaints Head: normocephalic ENMT: mucosa pink and moist Neck: jvd (8-9 cm water), supple Respiratory: diminished breath sounds (at bases/B) Cardiovascular: regular rate and rhythm Gastrointestinal: non-tender, soft Musculoskeletal: muscle weakness (generalized) Extremities: edema (trace/B) Neurological: other (encephalopthic) Results Result Diagram: 02/19/17 0605 02/19/17 0605 Results 24 hrs Laboratory Tests Test 02/19/17 12:58 02/19/17 17:03 02/19/17 20:01 02/20/17 02:10 Bedside Glucose 240 H 193 200 225 H Medications Medications Current Medications Ondansetron HCl (Zofran Inj) 4 mg Q6H PRN IV NAUSEA AND/OR VOMITING Last administered on 02/14/17 14:24; Admin Dose 4 MG; Start 12/02/16 at 22:30 Miscellaneous Information 1 ea NOTE XX ; Start 12/02/16 at 23:00 Glucose (Glutose) 15 gm Q15M PRN PO DECREASED GLUCOSE; Start 12/02/16 at 23:00 Glucose (Glutose) 22.5 gm Q15M PRN PO DECREASED GLUCOSE; Start 12/02/16 at 23: 00 Dextrose (D50w Syringe) 25 ml Q15M PRN IV DECREASED GLUCOSE Last administered on 01/26/17 05:21; Admin Dose 25 ML; Start 12/02/16 at 23:00 Dextrose (D50w Syringe) 50 ml Q15M PRN IV DECREASED GLUCOSE Last administered on 01/23/17 04:58; Admin Dose 50 ML; Start 12/02/16 at 23:00 Glucagon (Glucagen) 1 mg Q15M PRN IM DECREASED GLUCOSE; Start 12/02/16 at 23:00 Glucose (Glutose) 15 gm Q15M PRN BUCCAL DECREASED GLUCOSE; Start 12/02/16 at 23 :00 Acetaminophen (Tylenol Supp) 650 mg Q6H PRN [place] ELEVATED TEMPERATURE Last administered on 01/13/17 20:32; Admin Dose 650 MG; Start 12/09/16 at 17:00 Hydralazine HCl (Apresoline) 10 mg Q6H PRN IV SBP>150mm hg Last administered on 12/19/16 08:50; Admin Dose 10 MG; Start 12/11/16 at 10:30 Morphine Sulfate (morphine) 2 mg Q2H PRN IV PAIN LEVEL 4-7; Start 12/13/16 at 10 :00 Collagenase (Santyl) 1 applic DAILY TOP Last administered on 02/20/17 08:59; Admin Dose 1 APPLIC; Start 01/04/17 at 09:00 Metoprolol Tartrate (Lopressor) 5 mg Q4 PRN IV FOR H.R>110; Start 01/12/17 at 17:30 Acetaminophen (Tylenol Liquid) 650 mg Q6H PRN NGT PAIN AND OR ELEVATED TEMP Last administered on 02/03/17 17:37; Admin Dose 650 MG; Start 01/13/17 at 23:30 Acetaminophen/ Hydrocodone Bitart ([place] (5/325)) 1 tab Q6H PRN NGT PAIN LEVEL 4-7; Start 01/13/17 at 23:30 Levetiracetam (Keppra Liquid) 1,000 mg DAILY NGT Last administered on 02/20/17 08:59; Admin Dose 1,000 MG; Start 01/14/17 at 09:00 Meclizine HCl (Antivert) 25 mg TID PRN NGT dizziness; Start 01/13/17 at 20:00 Zolpidem Tartrate (Ambien) 5 mg HS PRN NGT INSOMNIA; Start 01/13/17 at 20:00 Metoprolol Tartrate (Lopressor) 12.5 mg BID NGT Last administered on 02/20/17 08:58; Admin Dose 12.5 MG; Start 01/24/17 at 21:00 Nystatin (Nystatin Susp) 5 ml Q6 PO Last administered on 02/20/17 06:38; Admin Dose 5 ML; Start 01/31/17 at 12:00 Lansoprazole (Prevacid) 30 mg DAILY@06 GTB Last administered on 02/20/17 06:38 ; Admin Dose 30 MG; Start 02/09/17 at 06:00 Zinc Sulfate (Zinc Sulfate) 220 mg DAILY GTB Last administered on 02/20/17 08: 58; Admin Dose 220 MG; Start 02/14/17 at 15:00 Multivitamins (Multivitamin) 30 ml DAILY GTB Last administered on 02/20/17 08: 59; Admin Dose 30 ML; Start 02/14/17 at 16:30 Docusate Sodium (Colace Liquid Cup) 100 mg BID GTB Last administered on 08:59; Admin Dose 100 MG; Start 02/14/17 at 21:00 Apixaban (Eliquis) 2.5 mg BID GTB Last administered on 02/20/17 08:58; Admin Dose 2.5 MG; Start 02/14/17 at 21:00 Amiodarone HCl (Cordarone) 200 mg DAILY GTB Last administered on 02/20/17 08:58 ; Admin Dose 200 MG; Start 02/19/17 at 09:00 Insulin Glargine (Lantus) 48 unit DAILY@20 SC Last administered on 02/19/17 20: 04; Admin Dose 48 UNIT; Start 02/19/17 at 20:00 Diagnostic Test (Pha) (Accu-Chek) 1 ea 02 XX Last administered on 02/20/17 02: 12; Admin Dose 1 EA; Start 02/20/17 at 02:00 VICENTE LESLIE Feb 20, 2017 11:27
--- NOTE | 2017-02-20 11:33 | PN ---
Date/Time of Note Date/Time of Note DATE: 02/20/17 TIME: 11:33 Assessment/Plan VTE Prophylaxis VTE Prophylaxis Intervention: other Lines/Catheters IV [facility] Urinary Cath still in place: No Assessment/Plan Chief Complaint/Hosp Course - Sacral decubitus ulcer, Dr. Ureña is asked to see patient in surgical consultation for possible debridement. Continue multivitamins and zinc. - Possible recurrent sepsis, resolving. Continue antibiotics per ID. Dr Celena pritchard is following infection disease consultation. - Dysphagia. S/p G-tube by Dr. Smith. Continue G-tube feeding, monitor residual. - Anemia of blood loss. Continue to monitor H&H, transfuse as needed. - Status post cardiopulmonary arrest on 12/09/2016 and 01/08/2017. Continue ventilatory support. - Anoxic encephalopathy. Continue Keppra. - Status post tracheostomy on 01/23/2017. Continue tracheostomy care. - End-stage renal disease. Continue hemodialysis per nephrology. - Paroxysmal atrial fibrillation. Eliquis is currently held due to bleeding. - Diabetes mellitus type 2. Continue Lantus and NovoLog with sliding scale coverage with Accu-Cheks q. 4 hours. - Diabetic foot ulcer. Continue current wound care. - Osteomyelitis of the distal phalanx of the great left toe. Completed treatment for antibiotics. Problems: Subjective 24 Hr Interval Summary Free Text/Dictation Patient sedated, trach in place Exam/Review of Systems Vital Signs Vitals Vital Signs Date Time Temp Pulse Resp B/P Pulse Ox O2 Delivery O2 Flow Rate FiO2 02/20/17 10:51 98.7 69 18 106/53 98 02/20/17 08:00 30 Intake and Output 02/19/17 02/19/17 02/20/17 15:00 23:00 07:00 Intake Total 755 ml 755 ml Output Total 200 ml 400 ml Balance 555 ml 355 ml Exam Constitutional: well developed Head: atraumatic, normocephalic Neck: supple Respiratory: diminished breath sounds Cardiovascular: regular rate and rhythm Gastrointestinal: non-tender, soft Extremities: normal pulses Results Result Diagram: 02/19/17 0602/19/17 06 Results 24 hrs Laboratory Tests Test 02/19/17 12:58 02/19/17 17:03 02/19/17 20:01 02/20/17 02:10 Bedside Glucose 240 H 193 200 225 H Medications Medications Current Medications Ondansetron HCl (Zofran Inj) 4 mg Q6H PRN IV NAUSEA AND/OR VOMITING Last administered on 02/14/17 14:24; Admin Dose 4 MG; Start 12/02/16 at 22:30 Miscellaneous Information 1 ea NOTE XX ; Start 12/02/16 at 23:00 Glucose (Glutose) 15 gm Q15M PRN PO DECREASED GLUCOSE; Start 12/02/16 at 23:00 Glucose (Glutose) 22.5 gm Q15M PRN PO DECREASED GLUCOSE; Start 12/02/16 at 23: 00 Dextrose (D50w Syringe) 25 ml Q15M PRN IV DECREASED GLUCOSE Last administered on 01/26/17 05:21; Admin Dose 25 ML; Start 12/02/16 at 23:00 Dextrose (D50w Syringe) 50 ml Q15M PRN IV DECREASED GLUCOSE Last administered on 01/23/17 04:58; Admin Dose 50 ML; Start 12/02/16 at 23:00 Glucagon (Glucagen) 1 mg Q15M PRN IM DECREASED GLUCOSE; Start 12/02/16 at 23:00 Glucose (Glutose) 15 gm Q15M PRN BUCCAL DECREASED GLUCOSE; Start 12/02/16 at 23 :00 Acetaminophen (Tylenol Supp) 650 mg Q6H PRN [place] ELEVATED TEMPERATURE Last administered on 01/13/17 20:32; Admin Dose 650 MG; Start 12/09/16 at 17:00 Hydralazine HCl (Apresoline) 10 mg Q6H PRN IV SBP>150mm hg Last administered on 12/19/16 08:50; Admin Dose 10 MG; Start 12/11/16 at 10:30 Morphine Sulfate (morphine) 2 mg Q2H PRN IV PAIN LEVEL 4-7; Start 12/13/16 at 10 :00 Collagenase (Santyl) 1 applic DAILY TOP Last administered on 02/20/17 08:59; Admin Dose 1 APPLIC; Start 01/04/17 at 09:00 Metoprolol Tartrate (Lopressor) 5 mg Q4 PRN IV FOR H.R>110; Start 01/12/17 at 17:30 Acetaminophen (Tylenol Liquid) 650 mg Q6H PRN NGT PAIN AND OR ELEVATED TEMP Last administered on 02/03/17 17:37; Admin Dose 650 MG; Start 01/13/17 at 23:30 Acetaminophen/ Hydrocodone Bitart ([place] (5/325)) 1 tab Q6H PRN NGT PAIN LEVEL 4-7; Start 01/13/17 at 23:30 Levetiracetam (Keppra Liquid) 1,000 mg DAILY NGT Last administered on 02/20/17 08:59; Admin Dose 1,000 MG; Start 01/14/17 at 09:00 Meclizine HCl (Antivert) 25 mg TID PRN NGT dizziness; Start 01/13/17 at 20:00 Zolpidem Tartrate (Ambien) 5 mg HS PRN NGT INSOMNIA; Start 01/13/17 at 20:00 Metoprolol Tartrate (Lopressor) 12.5 mg BID NGT Last administered on 02/20/17 08:58; Admin Dose 12.5 MG; Start 01/24/17 at 21:00 Nystatin (Nystatin Susp) 5 ml Q6 PO Last administered on 02/20/17 06:38; Admin Dose 5 ML; Start 01/31/17 at 12:00 Lansoprazole (Prevacid) 30 mg DAILY@06 GTB Last administered on 02/20/17 06:38 ; Admin Dose 30 MG; Start 02/09/17 at 06:00 Zinc Sulfate (Zinc Sulfate) 220 mg DAILY GTB Last administered on 02/20/17 08: 58; Admin Dose 220 MG; Start 02/14/17 at 15:00 Multivitamins (Multivitamin) 30 ml DAILY GTB Last administered on 02/20/17 08: 59; Admin Dose 30 ML; Start 02/14/17 at 16:30 Docusate Sodium (Colace Liquid Cup) 100 mg BID GTB Last administered on 08:59; Admin Dose 100 MG; Start 02/14/17 at 21:00 Apixaban (Eliquis) 2.5 mg BID GTB Last administered on 02/20/17 08:58; Admin Dose 2.5 MG; Start 02/14/17 at 21:00 Amiodarone HCl (Cordarone) 200 mg DAILY GTB Last administered on 02/20/17 08:58 ; Admin Dose 200 MG; Start 02/19/17 at 09:00 Insulin Glargine (Lantus) 48 unit DAILY@20 SC Last administered on 02/19/17 20: 04; Admin Dose 48 UNIT; Start 02/19/17 at 20:00 Diagnostic Test (Pha) (Accu-Chek) 1 ea 02 XX Last administered on 02/20/17 02: 12; Admin Dose 1 EA; Start 02/20/17 at 02:00 ELTON MARMOLEJO Feb 20, 2017 11:33
--- NOTE | 2017-02-20 11:50 | CONS ---
Date/Time of Note Date/Time of Note DATE: 02/20/17 TIME: 11:41 Assessment/Plan Assessment/Plan Additional Assessment/Plan - recurrent cardiopulmonary arrest on 12/09/2016 and on 01/08/2017 possible recurrent sepsis due to pneumonia - recurrent cardiopulmonary arrest on 12/09/2016 and on 01/08/2017 - s/p sepsis due to possible tracheobronchitis/pneumonia - possible recurrent sepsis due to pneumonia - WBC downward trending - recurrent cardiopulmonary arrest on 12/09/2016 and on 01/08/2017 - s/p sepsis due to possible tracheobronchitis/pneumonia - recurrent pneumonia due to pseudomonas - thrush, refractory to nystatin - funguria - bleeding from trach site - acute on chronic anemia due to acute blood loss, requiring blood transfusion - s/p recurrent sepsis - 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 Blood cultures from HD catheter on 12/13/2016 are negative to date. 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 MRI on 12/06/2016 and bone scan on showed early OM of the distal phalanx of the left great toe and left fourth proximal phalanx. superficial swab grew inna only. At present, no e/o persistent infection - recurrent pleural effusion - s/p right pleural effusion s/p thoracentesis with .9L removed on 12/16/2016; ( Note: there is no pleural fluid cx since orders were placed after Right thoracentesis, and Left thoracentesis was not performed on 12/17/16 d/t insufficient fluid) - ARANZA on CKD that progressed to ESRD and started on HD from 12/09/2016 - oliguria - improved - A fib -> PAF - small nonreversible perfusion abnormality in the inferoapical and inferior carver; EF 36% per Lexiscan 12/24/2016 - severe , EF 40-45% per TTE 12/17/16 - DM - Hgb A1c 8.7% - HTN associated with DM - acute encephalopathy with anoxic brain injury - unstageable decubitus ulcer of coccyx, no evidence of infection - dysphagia s/p G-tube placement 02/08/2017 NOTE: Pt completed 6 weeks (12/03/2016-01/15/2017) of antibiotics to treat early OM of the distal phalanx of the left great toe and left fourth proximal phalanx ; s/p pip/tazo 12/03/16-01/08/17 linezolid 01/08/17-01/20/17; caspofungin 01/12/17-01/21 and 02/04/17-02/17/17; tobramycin 02/04/2017- 02/15/17 for pseudomonas; cefepime ( 02/02/17-02/18/17). recommendations: - monitor closely off abx - monitor wbc - continue nystatin for thrush - wound care of the coccyx and upper back Consultation Date/Type/Reason Admit Date/Time Dec 02, 2016 at 21:01 Initial Consult Date 12/08/16 Type of Consultation: INFECTIOUS DISEASE Referring Provider: VIET PARKER MD 24 HR Interval Summary Free Text/Dictation remains full code, afebrile, Hgb 9.4 today, tolerating GT feedings, son wants sacral decub debridement prior to discharge- staff- no new events reported overnight. Subjective hx not possible: pt non-verbal Constitutional: requiring IVF, requiring O2 Exam/Review of Systems Vital Signs Vitals Vital Signs Date Time Temp Pulse Resp B/P Pulse Ox O2 Delivery O2 Flow Rate FiO2 02/20/17 10:51 98.7 69 18 106/53 98 02/20/17 08:00 30 Intake and Output 02/19/17 02/19/17 02/20/17 15:00 23:00 07:00 Intake Total 755 ml 755 ml Output Total 200 ml 400 ml Balance 555 ml 355 ml Exam Constitutional: frail, non-verbal Respiratory: clear to auscultation, normal air movement, other (trach intact- n obvious bleeding noted) Cardiovascular: nl pulses, regular rate and rhythm Gastrointestinal: non-tender, other (gt intact), soft Musculoskeletal: muscle weakness, other Extremities: normal pulses Neurological: unresponsive Skin: other (sacrum/coccyx skin decubs) Results Result Diagram: 02/19/17 0602/19/17 06 Results 24 hrs Laboratory Tests Test 02/19/17 12:58 02/19/17 17:03 02/19/17 20:01 02/20/17 02:10 Bedside Glucose 240 H 193 200 225 H Medications Medications Current Medications Ondansetron HCl (Zofran Inj) 4 mg Q6H PRN IV NAUSEA AND/OR VOMITING Last administered on 02/14/17 14:24; Admin Dose 4 MG; Start 12/02/16 at 22:30 Miscellaneous Information 1 ea NOTE XX ; Start 12/02/16 at 23:00 Glucose (Glutose) 15 gm Q15M PRN PO DECREASED GLUCOSE; Start 12/02/16 at 23:00 Glucose (Glutose) 22.5 gm Q15M PRN PO DECREASED GLUCOSE; Start 12/02/16 at 23: 00 Dextrose (D50w Syringe) 25 ml Q15M PRN IV DECREASED GLUCOSE Last administered on 01/26/17 05:21; Admin Dose 25 ML; Start 12/02/16 at 23:00 Dextrose (D50w Syringe) 50 ml Q15M PRN IV DECREASED GLUCOSE Last administered on 01/23/17 04:58; Admin Dose 50 ML; Start 12/02/16 at 23:00 Glucagon (Glucagen) 1 mg Q15M PRN IM DECREASED GLUCOSE; Start 12/02/16 at 23:00 Glucose (Glutose) 15 gm Q15M PRN BUCCAL DECREASED GLUCOSE; Start 12/02/16 at 23 :00 Acetaminophen (Tylenol Supp) 650 mg Q6H PRN [place] ELEVATED TEMPERATURE Last administered on 01/13/17 20:32; Admin Dose 650 MG; Start 12/09/16 at 17:00 Hydralazine HCl (Apresoline) 10 mg Q6H PRN IV SBP>150mm hg Last administered on 12/19/16 08:50; Admin Dose 10 MG; Start 12/11/16 at 10:30 Morphine Sulfate (morphine) 2 mg Q2H PRN IV PAIN LEVEL 4-7; Start 12/13/16 at 10 :00 Collagenase (Santyl) 1 applic DAILY TOP Last administered on 02/20/17 08:59; Admin Dose 1 APPLIC; Start 01/04/17 at 09:00 Metoprolol Tartrate (Lopressor) 5 mg Q4 PRN IV FOR H.R>110; Start 01/12/17 at 17:30 Acetaminophen (Tylenol Liquid) 650 mg Q6H PRN NGT PAIN AND OR ELEVATED TEMP Last administered on 02/03/17 17:37; Admin Dose 650 MG; Start 01/13/17 at 23:30 Acetaminophen/ Hydrocodone Bitart ([place] (5/325)) 1 tab Q6H PRN NGT PAIN LEVEL 4-7; Start 01/13/17 at 23:30 Levetiracetam (Keppra Liquid) 1,000 mg DAILY NGT Last administered on 02/20/17 08:59; Admin Dose 1,000 MG; Start 01/14/17 at 09:00 Meclizine HCl (Antivert) 25 mg TID PRN NGT dizziness; Start 01/13/17 at 20:00 Zolpidem Tartrate (Ambien) 5 mg HS PRN NGT INSOMNIA; Start 01/13/17 at 20:00 Metoprolol Tartrate (Lopressor) 12.5 mg BID NGT Last administered on 02/20/17 08:58; Admin Dose 12.5 MG; Start 01/24/17 at 21:00 Nystatin (Nystatin Susp) 5 ml Q6 PO Last administered on 02/20/17 06:38; Admin Dose 5 ML; Start 01/31/17 at 12:00 Lansoprazole (Prevacid) 30 mg DAILY@06 GTB Last administered on 02/20/17 06:38 ; Admin Dose 30 MG; Start 02/09/17 at 06:00 Zinc Sulfate (Zinc Sulfate) 220 mg DAILY GTB Last administered on 02/20/17 08: 58; Admin Dose 220 MG; Start 02/14/17 at 15:00 Multivitamins (Multivitamin) 30 ml DAILY GTB Last administered on 02/20/17 08: 59; Admin Dose 30 ML; Start 02/14/17 at 16:30 Docusate Sodium (Colace Liquid Cup) 100 mg BID GTB Last administered on 08:59; Admin Dose 100 MG; Start 02/14/17 at 21:00 Apixaban (Eliquis) 2.5 mg BID GTB Last administered on 02/20/17 08:58; Admin Dose 2.5 MG; Start 02/14/17 at 21:00 Amiodarone HCl (Cordarone) 200 mg DAILY GTB Last administered on 02/20/17 08:58 ; Admin Dose 200 MG; Start 02/19/17 at 09:00 Insulin Glargine (Lantus) 48 unit DAILY@20 SC Last administered on 02/19/17 20: 04; Admin Dose 48 UNIT; Start 02/19/17 at 20:00 Diagnostic Test (Pha) (Accu-Chek) 1 ea 02 XX Last administered on 02/20/17 02: 12; Admin Dose 1 EA; Start 02/20/17 at 02:00 YULIANA SIMMONS Feb 20, 2017 11:50
[2017-02-20] MEDS: INSULIN GLARGINE [LANtus] 3 ML PEN SC SCH (22:00)
[2017-02-21] VITALS (32 sets, daily range): BP systolic 99–137; BP diastolic 49–67; PULSE 63–76; RESP 16–22
[2017-02-21] MEDS: NYSTATIN SUSP 5 ML CUP PO SCH ×4 (00:41→17:55)
[2017-02-21] MEDS: ALBUTEROL 18 GM INHALER INH SCH ×4 (01:25→19:34)
[2017-02-21] MEDS: ACCU-CHEK XX SCH (02:00)
[2017-02-21] MEDS: LANSOPRAZOLE 30 MG CAP GTB SCH (05:27)
[2017-02-21] MEDS: DOCUSATE SODIUM 10 MG/ML (10ML CUP) GTB SCH ×2 (09:58→21:01)
[2017-02-21] MEDS: MULTIVITAMINS 30 ML CUP GTB SCH (09:58)
[2017-02-21] MEDS: ZINC SULFATE 220 MG CAP GTB SCH (09:58)
[2017-02-21] MEDS: AMIODARONE 200 MG TAB GTB SCH (09:58)
[2017-02-21] MEDS: LEVETIRACETAM (100 MG/ML) 5ML CUP NGT SCH ×2 (09:58→17:58)
[2017-02-21] MEDS: METOPROLOL 25 MG TAB NGT SCH ×2 (09:59→21:01)
[2017-02-21] MEDS: APIXABAN 5 MG TABLET GTB SCH ×2 (09:59→21:01)
[2017-02-21] MEDS: COLLAGENASE 30 GM TUBE TOP SCH (09:59)
[2017-02-21] MEDS: INSULIN ASPART [NOVOLOG] 3 ML PEN SC SCH ×4 (10:00→21:00)
--- NOTE | 2017-02-21 12:01 | CONS ---
Date/Time of Note Date/Time of Note DATE: 02/21/17 TIME: 11:58 Assessment/Plan Assessment/Plan Chief Complaint/Hosp Course IMPRESSION: 1. Atrial fibrillation-Having episodes of PAF with reasonable rate control. Currently remains in SR 2. Hypotension-overall improved and stable and tolerating low dose BB 3. Abnormal electrocardiogram with inferolateral T-wave inversions. 4. Respiratory failure-s/p trach placement 5. Nonhealing toe ulceration-vascular following 6. Peripheral arterial disease by arterial ultrasound of the lower extremities this admission. 7. Diabetes mellitus. 8. Fevers. 9. Positive troponin-downtrended 10.Bradycardia-improved/stable 11.-severe by echo 12.Cardiomyopathy-EF 40-45% by echo/36% by stress with no ischemia but positive scar. EF <30% by echo post arrest 14.Encephalopathy-anoxic 15. s/p cardiopulmonary arrest 01/08 Recc: -Tele -serial ecg -HD for volume removal as tolerated ongoing today -Continue eliquis at this time and follow for recurrent bleeding -Continue PO amio in attempt to maintain SR, now daily -Continue BB as tolerated only following HR/BP closely -Will hold on afterload reduction given severe and thus fixed afterload at valve orifice Problems: Consultation Date/Type/Reason Admit Date/Time Dec 02, 2016 at 21:01 Initial Consult Date 12/03/16 Type of Consultation: cardiology Reason for Consultation /cardiomyopathy/AF Referring Provider: VIET PARKER MD Exam/Review of Systems Vital Signs Vitals Vital Signs Date Time Temp Pulse Resp B/P Pulse Ox O2 Delivery O2 Flow Rate FiO2 02/21/17 11:46 97.8 64 20 114/49 98 02/21/17 09:05 30 Intake and Output 02/20/17 02/20/17 02/21/17 15:00 23:00 07:00 Intake Total 725 ml Output Total 300 ml Balance 425 ml Exam Review of Systems: CONSTITUTIONAL: No fevers, chills. PULMONARY: trached CARDIOVASCULAR: No obvious chest pain/palpitations GASTROINTESTINAL: No nausea/vomiting. GENITOURINARY: No hematuria/dysuria. MUSCULOSKELETAL: No myagias/arthalgias. PSYCHIATRIC: The patient denies depression. NEUROLOGIC: encephalopathic Constitutional: other (encephalopthic) ENMT: mucosa pink and moist Neck: other (trached) Respiratory: other (upper airway rhoncherous sounds) Cardiovascular: regular rate and rhythm Gastrointestinal: non-tender, other (GT), soft Musculoskeletal: muscle weakness (generalized) Extremities: edema (none) Neurological: other (Encephalopathic) Results Result Diagram: 02/19/1760402/19/17 06 Results 24 hrs Laboratory Tests Test 02/20/17 17:13 02/20/17 21:24 02/21/17 02:09 02/21/17 09:57 Bedside Glucose 218 211 234 H 200 Medications Medications Current Medications Ondansetron HCl (Zofran Inj) 4 mg Q6H PRN IV NAUSEA AND/OR VOMITING Last administered on 02/14/17 14:24; Admin Dose 4 MG; Start 12/02/16 at 22:30 Miscellaneous Information 1 ea NOTE XX ; Start 12/02/16 at 23:00 Glucose (Glutose) 15 gm Q15M PRN PO DECREASED GLUCOSE; Start 12/02/16 at 23:00 Glucose (Glutose) 22.5 gm Q15M PRN PO DECREASED GLUCOSE; Start 12/02/16 at 23: 00 Dextrose (D50w Syringe) 25 ml Q15M PRN IV DECREASED GLUCOSE Last administered on 01/26/17 05:21; Admin Dose 25 ML; Start 12/02/16 at 23:00 Dextrose (D50w Syringe) 50 ml Q15M PRN IV DECREASED GLUCOSE Last administered on 01/23/17 04:58; Admin Dose 50 ML; Start 12/02/16 at 23:00 Glucagon (Glucagen) 1 mg Q15M PRN IM DECREASED GLUCOSE; Start 12/02/16 at 23:00 Glucose (Glutose) 15 gm Q15M PRN BUCCAL DECREASED GLUCOSE; Start 12/02/16 at 23 :00 Acetaminophen (Tylenol Supp) 650 mg Q6H PRN [place] ELEVATED TEMPERATURE Last administered on 01/13/17 20:32; Admin Dose 650 MG; Start 12/09/16 at 17:00 Hydralazine HCl (Apresoline) 10 mg Q6H PRN IV SBP>150mm hg Last administered on 12/19/16 08:50; Admin Dose 10 MG; Start 12/11/16 at 10:30 Morphine Sulfate (morphine) 2 mg Q2H PRN IV PAIN LEVEL 4-7; Start 12/13/16 at 10 :00 Collagenase (Santyl) 1 applic DAILY TOP Last administered on 02/21/17 09:59; Admin Dose 1 APPLIC; Start 01/04/17 at 09:00 Metoprolol Tartrate (Lopressor) 5 mg Q4 PRN IV FOR H.R>110; Start 01/12/17 at 17:30 Acetaminophen (Tylenol Liquid) 650 mg Q6H PRN NGT PAIN AND OR ELEVATED TEMP Last administered on 02/03/17 17:37; Admin Dose 650 MG; Start 01/13/17 at 23:30 Acetaminophen/ Hydrocodone Bitart ([place] (5/325)) 1 tab Q6H PRN NGT PAIN LEVEL 4-7; Start 01/13/17 at 23:30 Levetiracetam (Keppra Liquid) 1,000 mg DAILY NGT Last administered on 09:58; Admin Dose 1,000 MG; Start 01/14/17 at 09:00 Meclizine HCl (Antivert) 25 mg TID PRN NGT dizziness; Start 01/13/17 at 20:00 Zolpidem Tartrate (Ambien) 5 mg HS PRN NGT INSOMNIA; Start 01/13/17 at 20:00 Metoprolol Tartrate (Lopressor) 12.5 mg BID NGT Last administered on 02/21/17 09:59; Admin Dose 12.5 MG; Start 01/24/17 at 21:00 Nystatin (Nystatin Susp) 5 ml Q6 PO Last administered on 02/21/17 05:26; Admin Dose 5 ML; Start 01/31/17 at 12:00 Lansoprazole (Prevacid) 30 mg DAILY@06 GTB Last administered on 02/21/17 05:27 ; Admin Dose 30 MG; Start 02/09/17 at 06:00 Zinc Sulfate (Zinc Sulfate) 220 mg DAILY GTB Last administered on 02/21/17 09: 58; Admin Dose 220 MG; Start 02/14/17 at 15:00 Multivitamins (Multivitamin) 30 ml DAILY GTB Last administered on 02/21/17 09: 58; Admin Dose 30 ML; Start 02/14/17 at 16:30 Docusate Sodium (Colace Liquid Cup) 100 mg BID GTB Last administered on 09:58; Admin Dose 100 MG; Start 02/14/17 at 21:00 Apixaban (Eliquis) 2.5 mg BID GTB Last administered on 02/21/17 09:59; Admin Dose 2.5 MG; Start 02/14/17 at 21:00 Amiodarone HCl (Cordarone) 200 mg DAILY GTB Last administered on 02/21/17 09: 58; Admin Dose 200 MG; Start 02/19/17 at 09:00 Insulin Glargine (Lantus) 48 unit DAILY@20 SC Last administered on 02/20/17 22: 00; Admin Dose 48 UNIT; Start 02/19/17 at 20:00 Diagnostic Test (Pha) (Accu-Chek) 1 ea 02 XX Last administered on 02/20/17 02: 12; Admin Dose 1 EA; Start 02/20/17 at 02:00 VICENTE LESLIE Feb 21, 2017 12:01
--- NOTE | 2017-02-21 12:27 | CONS ---
Date/Time of Note Date/Time of Note DATE: 02/21/17 TIME: 12:26 Assessment/Plan Assessment/Plan Additional Assessment/Plan -S/p cardiopulmonary arrest on 12/09/2016 and on 01/08/2017 - 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 Blood cultures from HD catheter on 12/13/2016 are negative to date. 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 MRI on 12/06/2016 and bone scan on showed early OM of the distal phalanx of the left great toe and left fourth proximal phalanx. superficial swab grew inna only - s/p right pleural effusion s/p thoracentesis with .9L removed on 12/16/2016 - severe , EF 40-45% per TTE 12/17/16 - DM - Hgb A1c 8.7% - HTN associated with DM - sp Tracheostomy site bleeding Plan: HD today, will conitnue HD on MWF s/p Tracheostomy, on ventilator pt will need HD palcement at a unit where they can do a HD for pt with tracheostomy and PEG tube placemen t- family preservation caseworker has been instructed to set up renal racine pt has severe , very labile BP sometimes with HD will continue to follow up for HD need Plan of`care Dw Dr Evelina Remy/staff/ patient family. Consultation Date/Type/Reason Admit Date/Time Dec 02, 2016 at 21:01 Initial Consult Date 12/08/16 Type of Consultation: cardiology Referring Provider: VIET PARKER MD 24 HR Interval Summary Constitutional: requiring IVF, requiring O2 Exam/Review of Systems Vital Signs Vitals Vital Signs Date Time Temp Pulse Resp B/P Pulse Ox O2 Delivery O2 Flow Rate FiO2 02/21/17 11:46 97.8 64 20 114/49 98 02/21/17 09:05 30 Intake and Output 02/20/17 02/20/17 02/21/17 15:00 23:00 07:00 Intake Total 725 ml Output Total 300 ml Balance 425 ml Exam Constitutional: non-verbal Respiratory: diminished breath sounds Cardiovascular: nl pulses, regular rate and rhythm Gastrointestinal: non-tender, other, soft Neurological: unresponsive Skin: other Results Result Diagram: 02/19/17 0605 02/19/17 0605 Results 24 hrs Laboratory Tests Test 02/20/17 17:13 02/20/17 21:24 02/21/17 02:09 02/21/17 09:57 Bedside Glucose 218 211 234 H 200 Medications Medications Current Medications Ondansetron HCl (Zofran Inj) 4 mg Q6H PRN IV NAUSEA AND/OR VOMITING Last administered on 02/14/17 14:24; Admin Dose 4 MG; Start 12/02/16 at 22:30 Miscellaneous Information 1 ea NOTE XX ; Start 12/02/16 at 23:00 Glucose (Glutose) 15 gm Q15M PRN PO DECREASED GLUCOSE; Start 12/02/16 at 23:00 Glucose (Glutose) 22.5 gm Q15M PRN PO DECREASED GLUCOSE; Start 12/02/16 at 23: 00 Dextrose (D50w Syringe) 25 ml Q15M PRN IV DECREASED GLUCOSE Last administered on 01/26/17 05:21; Admin Dose 25 ML; Start 12/02/16 at 23:00 Dextrose (D50w Syringe) 50 ml Q15M PRN IV DECREASED GLUCOSE Last administered on 01/23/17 04:58; Admin Dose 50 ML; Start 12/02/16 at 23:00 Glucagon (Glucagen) 1 mg Q15M PRN IM DECREASED GLUCOSE; Start 12/02/16 at 23:00 Glucose (Glutose) 15 gm Q15M PRN BUCCAL DECREASED GLUCOSE; Start 12/02/16 at 23 :00 Acetaminophen (Tylenol Supp) 650 mg Q6H PRN [place] ELEVATED TEMPERATURE Last administered on 01/13/17 20:32; Admin Dose 650 MG; Start 12/09/16 at 17:00 Hydralazine HCl (Apresoline) 10 mg Q6H PRN IV SBP>150mm hg Last administered on 12/19/16 08:50; Admin Dose 10 MG; Start 12/11/16 at 10:30 Morphine Sulfate (morphine) 2 mg Q2H PRN IV PAIN LEVEL 4-7; Start 12/13/16 at 10 :00 Collagenase (Santyl) 1 applic DAILY TOP Last administered on 02/21/17 09:59; Admin Dose 1 APPLIC; Start 01/04/17 at 09:00 Metoprolol Tartrate (Lopressor) 5 mg Q4 PRN IV FOR H.R>110; Start 01/12/17 at 17:30 Acetaminophen (Tylenol Liquid) 650 mg Q6H PRN NGT PAIN AND OR ELEVATED TEMP Last administered on 02/03/17 17:37; Admin Dose 650 MG; Start 01/13/17 at 23:30 Acetaminophen/ Hydrocodone Bitart ([place] (5/325)) 1 tab Q6H PRN NGT PAIN LEVEL 4-7; Start 01/13/17 at 23:30 Levetiracetam (Keppra Liquid) 1,000 mg DAILY NGT Last administered on 09:58; Admin Dose 1,000 MG; Start 01/14/17 at 09:00 Meclizine HCl (Antivert) 25 mg TID PRN NGT dizziness; Start 01/13/17 at 20:00 Zolpidem Tartrate (Ambien) 5 mg HS PRN NGT INSOMNIA; Start 01/13/17 at 20:00 Metoprolol Tartrate (Lopressor) 12.5 mg BID NGT Last administered on 02/21/17 09:59; Admin Dose 12.5 MG; Start 01/24/17 at 21:00 Nystatin (Nystatin Susp) 5 ml Q6 PO Last administered on 02/21/17 05:26; Admin Dose 5 ML; Start 01/31/17 at 12:00 Lansoprazole (Prevacid) 30 mg DAILY@06 GTB Last administered on 02/21/17 05:27 ; Admin Dose 30 MG; Start 02/09/17 at 06:00 Zinc Sulfate (Zinc Sulfate) 220 mg DAILY GTB Last administered on 02/21/17 09: 58; Admin Dose 220 MG; Start 02/14/17 at 15:00 Multivitamins (Multivitamin) 30 ml DAILY GTB Last administered on 02/21/17 09: 58; Admin Dose 30 ML; Start 02/14/17 at 16:30 Docusate Sodium (Colace Liquid Cup) 100 mg BID GTB Last administered on 09:58; Admin Dose 100 MG; Start 02/14/17 at 21:00 Apixaban (Eliquis) 2.5 mg BID GTB Last administered on 02/21/17 09:59; Admin Dose 2.5 MG; Start 02/14/17 at 21:00 Amiodarone HCl (Cordarone) 200 mg DAILY GTB Last administered on 02/21/17 09: 58; Admin Dose 200 MG; Start 02/19/17 at 09:00 Insulin Glargine (Lantus) 48 unit DAILY@20 SC Last administered on 02/20/17 22: 00; Admin Dose 48 UNIT; Start 02/19/17 at 20:00 Diagnostic Test (Pha) (Accu-Chek) 1 ea 02 XX Last administered on 02/20/17 02: 12; Admin Dose 1 EA; Start 02/20/17 at 02:00 YULIANA SIMMONS Feb 21, 2017 12:27
--- NOTE | 2017-02-21 17:16 | PN ---
Date/Time of Note Date/Time of Note DATE: 02/21/17 TIME: 17:07 Assessment/Plan VTE Prophylaxis VTE Prophylaxis Intervention: SCD's Lines/Catheters IV Catheter Type (from [facility] Urinary Cath still in place: No Assessment/Plan Chief Complaint/Hosp Course Patient is undergoing hemodialysis, remains afebrile, rates G-tube feeding well. Case discussed with Dr. Ureña, possible sacral wound debridement upon or availability. Blood sugars above 200 will adjust Lantus. ASSESSMENT AND PLAN: - Sacral decubitus ulcer, Dr. Ureña is following in surgical consultation for possible debridement. Continue multivitamins and zinc sulfate. - Possible recurrent sepsis, resolving. Continue antibiotics per ID. Dr Celena pritchard is following infection disease consultation. - Dysphagia. S/p G-tube by Dr. Smith. Continue G-tube feeding, monitor residual. - Anemia of blood loss. Continue to monitor H&H, transfuse as needed. - Status post cardiopulmonary arrest on 12/09/2016 and 01/08/2017. Continue ventilatory support. - Anoxic encephalopathy. Continue Keppra. - Status post tracheostomy on 01/23/2017. Continue tracheostomy care. - End-stage renal disease. Continue hemodialysis per nephrology. - Paroxysmal atrial fibrillation. Patient is unable to tolerate anticoagulation , due to recurrent bleeding from tracheostomy. - Diabetes mellitus type 2. Continue Lantus and NovoLog with sliding scale coverage with Accu-Cheks q. 4 hours. - Diabetic foot ulcer. Continue current wound care. - Osteomyelitis of the distal phalanx of the great left toe. Completed treatment for antibiotics. Continue sequential compression device for deep venous thrombosis prophylaxis and Protonix for peptic ulcer disease prophylaxis. Further recommendations based on clinical course. Plan of care discussed with Dr. Heredia. Problems: Exam/Review of Systems Vital Signs Vitals Vital Signs Date Time Temp Pulse Resp B/P Pulse Ox O2 Delivery O2 Flow Rate FiO2 02/21/17 16:13 76 02/21/17 15:39 16 02/21/17 15:34 98.4 101/54 98 02/21/17 13:30 30 Intake and Output 02/20/17 02/20/17 02/21/17 15:00 23:00 07:00 Intake Total 725 ml Output Total 300 ml Balance 425 ml Exam Constitutional: non-verbal Head: atraumatic, normocephalic ENMT: other (Nasogastric tube) Neck: other (Tracheostomy), supple Respiratory: diminished breath sounds Cardiovascular: nl pulses Gastrointestinal: non-tender, soft, GT Neurological: unresponsive Results Result Diagram: 02/19/1760402/19/17 06 Results 24 hrs Laboratory Tests Test 02/20/17 17:13 02/20/17 21:24 02/21/17 02:09 02/21/17 09:57 Bedside Glucose 218 211 234 H 200 Test 02/21/17 12:44 Bedside Glucose 226 H Medications Medications Current Medications Ondansetron HCl (Zofran Inj) 4 mg Q6H PRN IV NAUSEA AND/OR VOMITING Last administered on 02/14/17 14:24; Admin Dose 4 MG; Start 12/02/16 at 22:30 Miscellaneous Information 1 ea NOTE XX ; Start 12/02/16 at 23:00 Glucose (Glutose) 15 gm Q15M PRN PO DECREASED GLUCOSE; Start 12/02/16 at 23:00 Glucose (Glutose) 22.5 gm Q15M PRN PO DECREASED GLUCOSE; Start 12/02/16 at 23: 00 Dextrose (D50w Syringe) 25 ml Q15M PRN IV DECREASED GLUCOSE Last administered on 01/26/17 05:21; Admin Dose 25 ML; Start 12/02/16 at 23:00 Dextrose (D50w Syringe) 50 ml Q15M PRN IV DECREASED GLUCOSE Last administered on 01/23/17 04:58; Admin Dose 50 ML; Start 12/02/16 at 23:00 Glucagon (Glucagen) 1 mg Q15M PRN IM DECREASED GLUCOSE; Start 12/02/16 at 23:00 Glucose (Glutose) 15 gm Q15M PRN BUCCAL DECREASED GLUCOSE; Start 12/02/16 at 23 :00 Acetaminophen (Tylenol Supp) 650 mg Q6H PRN [place] ELEVATED TEMPERATURE Last administered on 01/13/17 20:32; Admin Dose 650 MG; Start 12/09/16 at 17:00 Hydralazine HCl (Apresoline) 10 mg Q6H PRN IV SBP>150mm hg Last administered on 12/19/16 08:50; Admin Dose 10 MG; Start 12/11/16 at 10:30 Morphine Sulfate (morphine) 2 mg Q2H PRN IV PAIN LEVEL 4-7; Start 12/13/16 at 10 :00 Collagenase (Santyl) 1 applic DAILY TOP Last administered on 02/21/17 09:59; Admin Dose 1 APPLIC; Start 01/04/17 at 09:00 Metoprolol Tartrate (Lopressor) 5 mg Q4 PRN IV FOR H.R>110; Start 01/12/17 at 17:30 Acetaminophen (Tylenol Liquid) 650 mg Q6H PRN NGT PAIN AND OR ELEVATED TEMP Last administered on 02/03/17 17:37; Admin Dose 650 MG; Start 01/13/17 at 23:30 Acetaminophen/ Hydrocodone Bitart ([place] (5/325)) 1 tab Q6H PRN NGT PAIN LEVEL 4-7; Start 01/13/17 at 23:30 Levetiracetam (Keppra Liquid) 1,000 mg DAILY NGT Last administered on 09:58; Admin Dose 1,000 MG; Start 01/14/17 at 09:00 Meclizine HCl (Antivert) 25 mg TID PRN NGT dizziness; Start 01/13/17 at 20:00 Zolpidem Tartrate (Ambien) 5 mg HS PRN NGT INSOMNIA; Start 01/13/17 at 20:00 Metoprolol Tartrate (Lopressor) 12.5 mg BID NGT Last administered on 02/21/17 09:59; Admin Dose 12.5 MG; Start 01/24/17 at 21:00 Nystatin (Nystatin Susp) 5 ml Q6 PO Last administered on 02/21/17 12:56; Admin Dose 5 ML; Start 01/31/17 at 12:00 Lansoprazole (Prevacid) 30 mg DAILY@06 GTB Last administered on 02/21/17 05:27 ; Admin Dose 30 MG; Start 02/09/17 at 06:00 Zinc Sulfate (Zinc Sulfate) 220 mg DAILY GTB Last administered on 02/21/17 09: 58; Admin Dose 220 MG; Start 02/14/17 at 15:00 Multivitamins (Multivitamin) 30 ml DAILY GTB Last administered on 02/21/17 09: 58; Admin Dose 30 ML; Start 02/14/17 at 16:30 Docusate Sodium (Colace Liquid Cup) 100 mg BID GTB Last administered on 09:58; Admin Dose 100 MG; Start 02/14/17 at 21:00 Apixaban (Eliquis) 2.5 mg BID GTB Last administered on 02/21/17 09:59; Admin Dose 2.5 MG; Start 02/14/17 at 21:00 Amiodarone HCl (Cordarone) 200 mg DAILY GTB Last administered on 02/21/17 09: 58; Admin Dose 200 MG; Start 02/19/17 at 09:00 Insulin Glargine (Lantus) 48 unit DAILY@20 SC Last administered on 02/20/17 22: 00; Admin Dose 48 UNIT; Start 02/19/17 at 20:00 Diagnostic Test (Pha) (Accu-Chek) 1 ea 02 XX Last administered on 02/20/17 02: 12; Admin Dose 1 EA; Start 02/20/17 at 02:00 KIMBERLY NOYOLA Feb 21, 2017 17:16
[2017-02-21] MEDS ORDERED: INSULIN GLARGINE [LANtus] 3 ML PEN SC SCH (20:00)
[2017-02-22] VITALS (25 sets, daily range): BP systolic 107–136; BP diastolic 52–69; PULSE 63–72; RESP 16–20
[2017-02-22] MEDS: NYSTATIN SUSP 5 ML CUP PO SCH ×4 (00:08→18:28)
[2017-02-22] MEDS: ALBUTEROL 18 GM INHALER INH SCH ×4 (01:26→19:19)
[2017-02-22] MEDS: ACCU-CHEK XX SCH (02:00)
[2017-02-22] MEDS: LANSOPRAZOLE 30 MG CAP GTB SCH (06:05)
[2017-02-22 07:03] LABS: ADD SCAN DIFF NO
[2017-02-22 07:08] LABS: BASOPHILS % 0.2 % (0.0-2.0); EOSINOPHILS # 0.1 10^3/ul (0.0-0.5); EOSINOPHILS % 0.6 % (0.0-7.0); HEMATOCRIT 27.6 % (42.0-52.0); HEMOGLOBIN 8.7 g/dl (14.0-18.0); LYMPHOCYTES # 1.1 10^3/ul (0.8-2.9); LYMPHOCYTES % 11.3 % (15.0-51.0); MEAN CORPUSCULAR HEMOGLOBIN 28.3 pg (29.0-33.0); MEAN CORPUSCULAR HGB CONC 31.5 g/dl (32.0-37.0); MEAN CORPUSCULAR VOLUME 89.9 fl (82.0-101.0); MEAN PLATELET VOLUME 9.5 fl (7.4-10.4); MONOCYTE # 0.8 10^3/ul (0.3-0.9); MONOCYTES % 7.6 % (0.0-11.0); NEUTROPHIL # 7.8 10^3/ul (1.6-7.5); NEUTROPHILS % 78.7 % (39.0-77.0); PLATELET COUNT 193 10^3/UL (140-415); RED BLOOD COUNT 3.07 10^6/ul (4.70-6.10); RED CELL DISTRIBUTION WIDTH 14.6 % (11.5-14.5)
[2017-02-22 07:45] LABS: CALCIUM 8.4 mg/dl (8.4-10.2); CREATININE 1.6 mg/dl (0.61-1.24); POTASSIUM 4.4 mmol/L (3.5-5.1)
[2017-02-22] MEDS ORDERED: ALTEPLASE (CATHFLO) 2 MG INJ CATHETER ONE (09:30)
[2017-02-22] MEDS: ASCORBIC ACID 500 MG TAB GTB SCH (09:54)
[2017-02-22] MEDS: DOCUSATE SODIUM 10 MG/ML (10ML CUP) GTB SCH ×2 (09:54→20:58)
[2017-02-22] MEDS: AMIODARONE 200 MG TAB GTB SCH (09:55)
[2017-02-22] MEDS: LEVETIRACETAM (100 MG/ML) 5ML CUP NGT SCH (09:55)
[2017-02-22] MEDS: MULTIVITAMINS 30 ML CUP GTB SCH (09:55)
[2017-02-22] MEDS: APIXABAN 5 MG TABLET GTB SCH ×2 (09:55→20:58)
[2017-02-22] MEDS: ZINC SULFATE 220 MG CAP GTB SCH (09:55)
[2017-02-22] MEDS: COLLAGENASE 30 GM TUBE TOP SCH (09:56)
[2017-02-22] MEDS: METOPROLOL 25 MG TAB NGT SCH ×2 (09:56→21:00)
[2017-02-22] MEDS: INSULIN ASPART [NOVOLOG] 3 ML PEN SC SCH ×4 (09:57→21:00)
--- NOTE | 2017-02-22 11:42 | CONS ---
Date/Time of Note Date/Time of Note DATE: 02/22/17 TIME: 11:41 Assessment/Plan Assessment/Plan Additional Assessment/Plan 1. Atrial fibrillation-Having episodes of PAF with reasonable rate control. Currently in SR - rate controlled - will follow - rate controlled on tele now - IN SINUS NOW at 60s 2. Hypotension-borderline and labile - stable overall 3. Abnormal electrocardiogram with inferolateral T-wave inversions.- NO CP - no intervention planned 4. Respiratory failure-s/p trach placement - on vent - resp rx in place 5. Nonhealing toe ulceration-vascular following 6. Peripheral arterial disease by arterial ultrasound of the lower extremities this admission. 7. Diabetes mellitus- on meds,, keep euglycemic - good glucose level 8. Fevers- resolved, on anti-bx now 9. Positive troponin-downtrended - no intervention planned 10.Bradycardia-improved/stable 11.-severe by echo 12.Cardiomyopathy-EF 40-45% by echo/36% by stress with no ischemia but positive scar. EF <30% by echo post arrest 14.Encephalopathy-anoxic 15. s/p cardiopulmonary arrest 01/08 Consultation Date/Type/Reason Admit Date/Time Dec 02, 2016 at 21:01 Initial Consult Date 12/03/16 Type of Consultation: cardiology Referring Provider: VIET PARKER MD 24 HR Interval Summary Free Text/Dictation No acute change - no ectopy on tele ROS: No fever, no chills, no nausea, no vomiting, no diarrhea/constipation No recent weight changes No chest pain, no PND, no orthopnea No dizziness, blurred vision No thirst, no heat or cold intolerance (per nurse) Exam/Review of Systems Vital Signs Vitals Vital Signs Date Time Temp Pulse Resp B/P Pulse Ox O2 Delivery O2 Flow Rate FiO2 02/22/17 09:45 72 16 99 30 02/22/17 07:40 98.3 136/61 Intake and Output 02/21/17 02/21/17 02/22/17 14:59 22:59 06:59 Intake Total 1260 ml 755 ml Output Total 2700 ml 500 ml Balance -1440 ml 255 ml Exam General: WN/WD/NAD, AOx 0 HEENT: Unicetric/atraumatic/EOMI (does not follow commands) NECK: JVD elevated, no thyromegaly Lymph: no lymphadenopathy HEART: regular with no S3, II/ systolic murmur at apex LUNGS: Coarse sounds ABD: soft, NT, ND, +BS : Intact Neuro: non focal SKIN: chronic changes EXT: trace edema Results Result Diagram: 02/22/17 0655 02/22/17 0655 Results 24 hrs Laboratory Tests Test 02/21/17 12:44 02/21/17 17:54 02/21/17 20:49 02/22/17 06:55 Bedside Glucose 226 H 174 169 White Blood Count 10.0 Red Blood Count 3.07 L Hemoglobin 8.7 L Hematocrit 27.6 L Mean Corpuscular Volume 89.9 Mean Corpuscular Hemoglobin 28.3 L Mean Corpuscular Hemoglobin Concent 31.5 L Red Cell Distribution Width 14.6 H Platelet Count 193 Mean Platelet Volume 9.5 Neutrophils % 78.7 H Lymphocytes % 11.3 L Monocytes % 7.6 Eosinophils % 0.6 Basophils % 0.2 Nucleated Red Blood Cells % 0.0 Neutrophils # 7.8 H Lymphocytes # 1.1 Monocytes # 0.8 Eosinophils # 0.1 Basophils # 0.0 Nucleated Red Blood Cells # 0.0 Sodium Level 132 L Potassium Level 4.4 Chloride Level 94 L Carbon Dioxide Level 34 H Anion Gap 8 Blood Urea Nitrogen 74 H Creatinine 1.60 H Glucose Level 201 Calcium Level 8.4 Test 02/22/17 09:50 Bedside Glucose 201 Medications Medications Current Medications Ondansetron HCl (Zofran Inj) 4 mg Q6H PRN IV NAUSEA AND/OR VOMITING Last administered on 02/14/17 14:24; Admin Dose 4 MG; Start 12/02/16 at 22:30 Miscellaneous Information 1 ea NOTE XX ; Start 12/02/16 at 23:00 Glucose (Glutose) 15 gm Q15M PRN PO DECREASED GLUCOSE; Start 12/02/16 at 23:00 Glucose (Glutose) 22.5 gm Q15M PRN PO DECREASED GLUCOSE; Start 12/02/16 at 23: 00 Dextrose (D50w Syringe) 25 ml Q15M PRN IV DECREASED GLUCOSE Last administered on 01/26/17 05:21; Admin Dose 25 ML; Start 12/02/16 at 23:00 Dextrose (D50w Syringe) 50 ml Q15M PRN IV DECREASED GLUCOSE Last administered on 01/23/17 04:58; Admin Dose 50 ML; Start 12/02/16 at 23:00 Glucagon (Glucagen) 1 mg Q15M PRN IM DECREASED GLUCOSE; Start 12/02/16 at 23:00 Glucose (Glutose) 15 gm Q15M PRN BUCCAL DECREASED GLUCOSE; Start 12/02/16 at 23 :00 Acetaminophen (Tylenol Supp) 650 mg Q6H PRN [place] ELEVATED TEMPERATURE Last administered on 01/13/17 20:32; Admin Dose 650 MG; Start 12/09/16 at 17:00 Hydralazine HCl (Apresoline) 10 mg Q6H PRN IV SBP>150mm hg Last administered on 12/19/16 08:50; Admin Dose 10 MG; Start 12/11/16 at 10:30 Morphine Sulfate (morphine) 2 mg Q2H PRN IV PAIN LEVEL 4-7; Start 12/13/16 at 10 :00 Collagenase (Santyl) 1 applic DAILY TOP Last administered on 02/22/17 09:56; Admin Dose 1 APPLIC; Start 01/04/17 at 09:00 Metoprolol Tartrate (Lopressor) 5 mg Q4 PRN IV FOR H.R>110; Start 01/12/17 at 17:30 Acetaminophen (Tylenol Liquid) 650 mg Q6H PRN NGT PAIN AND OR ELEVATED TEMP Last administered on 02/03/17 17:37; Admin Dose 650 MG; Start 01/13/17 at 23:30 Acetaminophen/ Hydrocodone Bitart ([place] (5/325)) 1 tab Q6H PRN NGT PAIN LEVEL 4-7; Start 01/13/17 at 23:30 Levetiracetam (Keppra Liquid) 1,000 mg DAILY NGT Last administered on 09:55; Admin Dose 1,000 MG; Start 01/14/17 at 09:00 Meclizine HCl (Antivert) 25 mg TID PRN NGT dizziness; Start 01/13/17 at 20:00 Zolpidem Tartrate (Ambien) 5 mg HS PRN NGT INSOMNIA; Start 01/13/17 at 20:00 Metoprolol Tartrate (Lopressor) 12.5 mg BID NGT Last administered on 02/22/17 09:56; Admin Dose 12.5 MG; Start 01/24/17 at 21:00 Nystatin (Nystatin Susp) 5 ml Q6 PO Last administered on 02/22/17 06:06; Admin Dose 5 ML; Start 01/31/17 at 12:00 Lansoprazole (Prevacid) 30 mg DAILY@06 GTB Last administered on 02/22/17 06:05 ; Admin Dose 30 MG; Start 02/09/17 at 06:00 Zinc Sulfate (Zinc Sulfate) 220 mg DAILY GTB Last administered on 02/22/17 09: 55; Admin Dose 220 MG; Start 02/14/17 at 15:00 Multivitamins (Multivitamin) 30 ml DAILY GTB Last administered on 02/22/17 09: 55; Admin Dose 30 ML; Start 02/14/17 at 16:30 Docusate Sodium (Colace Liquid Cup) 100 mg BID GTB Last administered on 09:54; Admin Dose 100 MG; Start 02/14/17 at 21:00 Apixaban (Eliquis) 2.5 mg BID GTB Last administered on 02/22/17 09:55; Admin Dose 2.5 MG; Start 02/14/17 at 21:00 Amiodarone HCl (Cordarone) 200 mg DAILY GTB Last administered on 02/22/17 09: 55; Admin Dose 200 MG; Start 02/19/17 at 09:00 Diagnostic Test (Pha) (Accu-Chek) 1 ea 02 XX Last administered on 02/20/17 02: 12; Admin Dose 1 EA; Start 02/20/17 at 02:00 Ascorbic Acid (Vitamin C) 500 mg DAILY GTB Last administered on 02/22/17 09:54 ; Admin Dose 500 MG; Start 02/22/17 at 09:00 Insulin Glargine (Lantus) 52 unit DAILY@20 SC Last administered on 02/21/17 21 :13; Admin Dose 52 UNIT; Start 02/21/17 at 20:00 DAVE NICOLE MD Feb 22, 2017 11:42
--- NOTE | 2017-02-22 11:44 | CONS ---
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 Blood cultures from HD catheter on 12/13/2016 are negative to date. 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 MRI on 12/06/2016 and bone scan on showed early OM of the distal phalanx of the left great toe and left fourth proximal phalanx. superficial swab grew inna only - s/p right pleural effusion s/p thoracentesis with .9L removed on 12/16/2016 - severe , EF 40-45% per TTE 12/17/16 - DM - Hgb A1c 8.7% - HTN associated with DM - sp Tracheostomy site bleeding Plan: HD yesterday, will conitnue HD on MWF s/p Tracheostomy, on ventilator pt will need HD palcement at a unit where they can do a HD for pt with tracheostomy and PEG tube placemen t- case management assistant has been instructed to set up [facility] pt has severe , very labile BP sometimes with HD will continue to follow up for HD need Plan of`care Dw Dr Evelina Remy/staff/ patient family. Consultation Date/Type/Reason Admit Date/Time Dec 02, 2016 at 21:01 Initial Consult Date 12/08/16 Type of Consultation: cardiology Referring Provider: VIET PARKER MD 24 HR Interval Summary Subjective hx not possible: pt non-verbal Constitutional: requiring IVF, requiring O2 Exam/Review of Systems Vital Signs Vitals Vital Signs Date Time Temp Pulse Resp B/P Pulse Ox O2 Delivery O2 Flow Rate FiO2 02/22/17 09:45 72 16 99 30 02/22/17 07:40 98.3 136/61 Intake and Output 02/21/17 02/21/17 02/22/17 15:00 23:00 07:00 Intake Total 1260 ml 755 ml Output Total 2700 ml 500 ml Balance -1440 ml 255 ml Exam Constitutional: non-verbal Respiratory: clear to auscultation, normal air movement Cardiovascular: nl pulses, other (SR- HR 60's), regular rate and rhythm Gastrointestinal: non-tender, other, soft Neurological: other (opens eyes only, doesnot track or response when called by name,. blinc refelex present) Results Result Diagram: 02/22/17 0655 02/22/17 0655 Results 24 hrs Laboratory Tests Test 02/21/17 12:44 02/21/17 17:54 02/21/17 20:49 02/22/17 06:55 Bedside Glucose 226 H 174 169 White Blood Count 10.0 Red Blood Count 3.07 L Hemoglobin 8.7 L Hematocrit 27.6 L Mean Corpuscular Volume 89.9 Mean Corpuscular Hemoglobin 28.3 L Mean Corpuscular Hemoglobin Concent 31.5 L Red Cell Distribution Width 14.6 H Platelet Count 193 Mean Platelet Volume 9.5 Neutrophils % 78.7 H Lymphocytes % 11.3 L Monocytes % 7.6 Eosinophils % 0.6 Basophils % 0.2 Nucleated Red Blood Cells % 0.0 Neutrophils # 7.8 H Lymphocytes # 1.1 Monocytes # 0.8 Eosinophils # 0.1 Basophils # 0.0 Nucleated Red Blood Cells # 0.0 Sodium Level 132 L Potassium Level 4.4 Chloride Level 94 L Carbon Dioxide Level 34 H Anion Gap 8 Blood Urea Nitrogen 74 H Creatinine 1.60 H Glucose Level 201 Calcium Level 8.4 Test 02/22/17 09:50 Bedside Glucose 201 Medications Medications Current Medications Ondansetron HCl (Zofran Inj) 4 mg Q6H PRN IV NAUSEA AND/OR VOMITING Last administered on 02/14/17t 14:24; Admin Dose 4 MG; Start 12/02/16 at 22:30 Miscellaneous Information 1 ea NOTE XX ; Start 12/02/16 at 23:00 Glucose (Glutose) 15 gm Q15M PRN PO DECREASED GLUCOSE; Start 12/02/16 at 23:00 Glucose (Glutose) 22.5 gm Q15M PRN PO DECREASED GLUCOSE; Start 12/02/16 at 23: 00 Dextrose (D50w Syringe) 25 ml Q15M PRN IV DECREASED GLUCOSE Last administered on 01/26/17 05:21; Admin Dose 25 ML; Start 12/02/16 at 23:00 Dextrose (D50w Syringe) 50 ml Q15M PRN IV DECREASED GLUCOSE Last administered on 01/23/17 04:58; Admin Dose 50 ML; Start 12/02/16 at 23:00 Glucagon (Glucagen) 1 mg Q15M PRN IM DECREASED GLUCOSE; Start 12/02/16 at 23:00 Glucose (Glutose) 15 gm Q15M PRN BUCCAL DECREASED GLUCOSE; Start 12/02/16 at 23 :00 Acetaminophen (Tylenol Supp) 650 mg Q6H PRN [place] ELEVATED TEMPERATURE Last administered on 01/13/17 20:32; Admin Dose 650 MG; Start 12/09/16 at 17:00 Hydralazine HCl (Apresoline) 10 mg Q6H PRN IV SBP>150mm hg Last administered on 12/19/16 08:50; Admin Dose 10 MG; Start 12/11/16 at 10:30 Morphine Sulfate (morphine) 2 mg Q2H PRN IV PAIN LEVEL 4-7; Start 12/13/16 at 10 :00 Collagenase (Santyl) 1 applic DAILY TOP Last administered on 02/22/17 09:56; Admin Dose 1 APPLIC; Start 01/04/17 at 09:00 Metoprolol Tartrate (Lopressor) 5 mg Q4 PRN IV FOR H.R>110; Start 01/12/17 at 17:30 Acetaminophen (Tylenol Liquid) 650 mg Q6H PRN NGT PAIN AND OR ELEVATED TEMP Last administered on 02/03/17 17:37; Admin Dose 650 MG; Start 01/13/17 at 23:30 Acetaminophen/ Hydrocodone Bitart ([place] (5/325)) 1 tab Q6H PRN NGT PAIN LEVEL 4-7; Start 01/13/17 at 23:30 Levetiracetam (Keppra Liquid) 1,000 mg DAILY NGT Last administered on 09:55; Admin Dose 1,000 MG; Start 01/14/17 at 09:00 Meclizine HCl (Antivert) 25 mg TID PRN NGT dizziness; Start 01/13/17 at 20:00 Zolpidem Tartrate (Ambien) 5 mg HS PRN NGT INSOMNIA; Start 01/13/17 at 20:00 Metoprolol Tartrate (Lopressor) 12.5 mg BID NGT Last administered on 02/22/17 09:56; Admin Dose 12.5 MG; Start 01/24/17 at 21:00 Nystatin (Nystatin Susp) 5 ml Q6 PO Last administered on 02/22/17 06:06; Admin Dose 5 ML; Start 01/31/17 at 12:00 Lansoprazole (Prevacid) 30 mg DAILY@06 GTB Last administered on 02/22/17 06:05 ; Admin Dose 30 MG; Start 02/09/17 at 06:00 Zinc Sulfate (Zinc Sulfate) 220 mg DAILY GTB Last administered on 02/22/17 09: 55; Admin Dose 220 MG; Start 02/14/17 at 15:00 Multivitamins (Multivitamin) 30 ml DAILY GTB Last administered on 02/22/17 09: 55; Admin Dose 30 ML; Start 02/14/17 at 16:30 Docusate Sodium (Colace Liquid Cup) 100 mg BID GTB Last administered on 09:54; Admin Dose 100 MG; Start 02/14/17 at 21:00 Apixaban (Eliquis) 2.5 mg BID GTB Last administered on 02/22/17 09:55; Admin Dose 2.5 MG; Start 02/14/17 at 21:00 Amiodarone HCl (Cordarone) 200 mg DAILY GTB Last administered on 02/22/17 09: 55; Admin Dose 200 MG; Start 02/19/17 at 09:00 Diagnostic Test (Pha) (Accu-Chek) 1 ea 02 XX Last administered on 02/20/17 02: 12; Admin Dose 1 EA; Start 02/20/17 at 02:00 Ascorbic Acid (Vitamin C) 500 mg DAILY GTB Last administered on 02/22/17 09:54 ; Admin Dose 500 MG; Start 02/22/17 at 09:00 Insulin Glargine (Lantus) 52 unit DAILY@20 SC Last administered on 02/21/17 21 :13; Admin Dose 52 UNIT; Start 02/21/17 at 20:00 YULIANA SIMMONS Feb 22, 2017 11:44
--- NOTE | 2017-02-22 16:16 | CONS ---
Date/Time of Note Date/Time of Note DATE: 02/22/17 TIME: 16:16 Assessment/Plan Assessment/Plan Chief Complaint/Hosp Course - s/p recurrent sepsis due to pneumonia +/- funguria - treated with cefepime, tobramycin, and caspofungin - s/p recurrent pneumonia due to pseudomonas - s/p sepsis due to possible tracheobronchitis/pneumonia - funguria - treated with caspofungin - thrush, refractory to nystatin - recurrent cardiopulmonary arrest on 12/09/2016 and on 01/08/2017 - hypoxic respiratory failure, intubated for the 2nd time on 12/12/2016; extubated 12/18/2016; re-intubated for the 3rd time 01/08/2017, s/p tracheostomy 06/2017 - bleeding from trach site - resolved - acute on chronic anemia due to acute blood loss, requiring blood transfusion - 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 Blood cultures from HD catheter on 12/13/2016 are negative to date. 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 MRI on 12/06/2016 and bone scan on showed early OM of the distal phalanx of the left great toe and left fourth proximal phalanx. superficial swab grew inna only. At present, no e/o persistent infection - recurrent pleural effusion - s/p right pleural effusion s/p thoracentesis with .9L removed on 12/16/2016; ( Note: there is no pleural fluid cx since orders were placed after Right thoracentesis, and Left thoracentesis was not performed on 12/17/16 d/t insufficient fluid) - ARANZA on CKD that progressed to ESRD and started on HD from 12/09/2016 - oliguria - improved - A fib -> PAF - small nonreversible perfusion abnormality in the inferoapical and inferior carver; EF 36% per Lexiscan 12/24/2016 - severe , EF 40-45% per TTE 12/17/16 - DM - Hgb A1c 8.7% - HTN associated with DM - acute encephalopathy with anoxic brain injury - unstageable decubitus ulcer of coccyx, no evidence of infection - dysphagia s/p G-tube placement 02/08/2017 NOTE: Pt completed 6 weeks (12/03/2016-01/15/2017) of antibiotics to treat early OM of the distal phalanx of the left great toe and left fourth proximal phalanx ; s/p pip/tazo 12/03/16-01/08/17; linezolid 01/08/17-01/20/17; caspofungin 01/12/17-01/21/17 and 02/04/17-02/17/17; tobramycin 02/04/2017- 02/15/17 for pseudomonas; cefepime (02/02/17-02/18/17). recommendations: - monitor closely off abx - continue nystatin for thrush - wound care of the coccyx and upper back Management d/w Dr. Parker, RN Godwin and Dr. Wilson Problems: Consultation Date/Type/Reason Admit Date/Time Dec 02, 2016 at 21:01 Initial Consult Date 12/03/16 Type of Consultation: Infectious Disease Referring Provider: VIET PARKER MD 24 HR Interval Summary Free Text/Dictation Planning to do wound debridement and awaiting subacute placement per d/w Dr. Parker. Afebrile; no acute issues per d/w nursing staff. Subjective hx not possible: pt non-verbal Exam/Review of Systems Vital Signs Vitals Vital Signs Date Time Temp Pulse Resp B/P Pulse Ox O2 Delivery O2 Flow Rate FiO2 02/22/17 15:48 98.3 78 17 107/69 99 02/22/17 15:20 30 Intake and Output 02/21/17 02/21/17 02/22/17 15:00 23:00 07:00 Intake Total 1260 ml 755 ml Output Total 2700 ml 500 ml Balance -1440 ml 255 ml Exam Constitutional: frail, chronically debilitated, non-communicative, well developed Head: atraumatic, normocephalic Eyes: nl conjunctiva, nl lids ENMT: other (thrush) Neck: other (tracheostomy intact - no bleeding noted) Respiratory: essentially clear anteriorly Cardiovascular: nl pulses, regular rate and rhythm Gastrointestinal: non-tender, soft, G-tube with tube feeds intact Genitourinary - Male: nl penis, nl scrotum, other (Condom catheter in place) Musculoskeletal: nl extremities to inspection Extremities: No edema Neurological: lethargic/asleep Skin: nl turgor, other (wounds: see nurse note and photos in chart for details ; decub on the coccyx) Results Result Diagram: 02/22/17 0655 02/22/17 0655 Results 24 hrs Laboratory Tests Test 02/21/17 17:54 02/21/17 20:49 02/22/17 06:55 02/22/17 09:50 Bedside Glucose 174 169 201 White Blood Count 10.0 Red Blood Count 3.07 L Hemoglobin 8.7 L Hematocrit 27.6 L Mean Corpuscular Volume 89.9 Mean Corpuscular Hemoglobin 28.3 L Mean Corpuscular Hemoglobin Concent 31.5 L Red Cell Distribution Width 14.6 H Platelet Count 193 Mean Platelet Volume 9.5 Neutrophils % 78.7 H Lymphocytes % 11.3 L Monocytes % 7.6 Eosinophils % 0.6 Basophils % 0.2 Nucleated Red Blood Cells % 0.0 Neutrophils # 7.8 H Lymphocytes # 1.1 Monocytes # 0.8 Eosinophils # 0.1 Basophils # 0.0 Nucleated Red Blood Cells # 0.0 Sodium Level 132 L Potassium Level 4.4 Chloride Level 94 L Carbon Dioxide Level 34 H Anion Gap 8 Blood Urea Nitrogen 74 H Creatinine 1.60 H Glucose Level 201 Calcium Level 8.4 Test 02/22/17 13:07 Bedside Glucose 182 Medications Medications Current Medications Ondansetron HCl (Zofran Inj) 4 mg Q6H PRN IV NAUSEA AND/OR VOMITING Last administered on 02/14/17 14:24; Admin Dose 4 MG; Start 12/02/16 at 22:30 Miscellaneous Information 1 ea NOTE XX ; Start 12/02/16 at 23:00 Glucose (Glutose) 15 gm Q15M PRN PO DECREASED GLUCOSE; Start 12/02/16 at 23:00 Glucose (Glutose) 22.5 gm Q15M PRN PO DECREASED GLUCOSE; Start 12/02/16 at 23: 00 Dextrose (D50w Syringe) 25 ml Q15M PRN IV DECREASED GLUCOSE Last administered on 01/26/17 05:21; Admin Dose 25 ML; Start 12/02/16 at 23:00 Dextrose (D50w Syringe) 50 ml Q15M PRN IV DECREASED GLUCOSE Last administered on 01/23/17 04:58; Admin Dose 50 ML; Start 12/02/16 at 23:00 Glucagon (Glucagen) 1 mg Q15M PRN IM DECREASED GLUCOSE; Start 12/02/16 at 23:00 Glucose (Glutose) 15 gm Q15M PRN BUCCAL DECREASED GLUCOSE; Start 12/02/16 at 23 :00 Acetaminophen (Tylenol Supp) 650 mg Q6H PRN [place] ELEVATED TEMPERATURE Last administered on 01/13/17 20:32; Admin Dose 650 MG; Start 12/09/16 at 17:00 Hydralazine HCl (Apresoline) 10 mg Q6H PRN IV SBP>150mm hg Last administered on 12/19/16 08:50; Admin Dose 10 MG; Start 12/11/16 at 10:30 Morphine Sulfate (morphine) 2 mg Q2H PRN IV PAIN LEVEL 4-7; Start 12/13/16 at 10 :00 Collagenase (Santyl) 1 applic DAILY TOP Last administered on 02/22/17 09:56; Admin Dose 1 APPLIC; Start 01/04/17 at 09:00 Metoprolol Tartrate (Lopressor) 5 mg Q4 PRN IV FOR H.R>110; Start 01/12/17 at 17:30 Acetaminophen (Tylenol Liquid) 650 mg Q6H PRN NGT PAIN AND [place] ELEVATED TEMP Last administered on 02/03/17 17:37; Admin Dose 650 MG; Start 01/13/17 at 23:30 Acetaminophen/ Hydrocodone Bitart ([place] (5/325)) 1 tab Q6H PRN NGT PAIN LEVEL 4-7; Start 01/13/17 at 23:30 Levetiracetam (Keppra Liquid) 1,000 mg DAILY NGT Last administered on 09:55; Admin Dose 1,000 MG; Start 01/14/17 at 09:00 Meclizine HCl (Antivert) 25 mg TID PRN NGT dizziness; Start 01/13/17 at 20:00 Zolpidem Tartrate (Ambien) 5 mg HS PRN NGT INSOMNIA; Start 01/13/17 at 20:00 Metoprolol Tartrate (Lopressor) 12.5 mg BID NGT Last administered on 02/22/17 09:56; Admin Dose 12.5 MG; Start 01/24/17 at 21:00 Nystatin (Nystatin Susp) 5 ml Q6 PO Last administered on 02/22/17 13:11; Admin Dose 5 ML; Start 01/31/17 at 12:00 Lansoprazole (Prevacid) 30 mg DAILY@06 GTB Last administered on 02/22/17 06:05 ; Admin Dose 30 MG; Start 02/09/17 at 06:00 Zinc Sulfate (Zinc Sulfate) 220 mg DAILY GTB Last administered on 02/22/17 09: 55; Admin Dose 220 MG; Start 02/14/17 at 15:00 Multivitamins (Multivitamin) 30 ml DAILY GTB Last administered on 02/22/17 09: 55; Admin Dose 30 ML; Start 02/14/17 at 16:30 Docusate Sodium (Colace Liquid Cup) 100 mg BID GTB Last administered on 09:54; Admin Dose 100 MG; Start 02/14/17 at 21:00 Apixaban (Eliquis) 2.5 mg BID GTB Last administered on 02/22/17 09:55; Admin Dose 2.5 MG; Start 02/14/17 at 21:00 Amiodarone HCl (Cordarone) 200 mg DAILY GTB Last administered on 02/22/17 09: 55; Admin Dose 200 MG; Start 02/19/17 at 09:00 Diagnostic Test (Pha) (Accu-Chek) 1 ea 02 XX Last administered on 02/20/17 02: 12; Admin Dose 1 EA; Start 02/20/17 at 02:00 Ascorbic Acid (Vitamin C) 500 mg DAILY GTB Last administered on 02/22/17 09:54 ; Admin Dose 500 MG; Start 02/22/17 at 09:00 Insulin Glargine (Lantus) 52 unit DAILY@20 SC Last administered on 02/21/17 21 :13; Admin Dose 52 UNIT; Start 02/21/17 at 20:00 YUMIKO ALATORRE NP Feb 22, 2017 16:16
--- NOTE | 2017-02-22 16:43 | CONS ---
Date/Time of Note Date/Time of Note DATE: 02/21/17 TIME: 16:41 Assessment/Plan Assessment/Plan Chief Complaint/Hosp Course -- recurrent cardiopulmonary arrest on 12/09/2016 and on 01/08/2017 possible recurrent sepsis due to pneumonia - recurrent cardiopulmonary arrest on 12/09/2016 and on 01/08/2017 - s/p sepsis due to possible tracheobronchitis/pneumonia - possible recurrent sepsis due to pneumonia - WBC downward trending - recurrent cardiopulmonary arrest on 12/09/2016 and on 01/08/2017 - s/p sepsis due to possible tracheobronchitis/pneumonia - recurrent pneumonia due to pseudomonas - thrush, refractory to nystatin - funguria - bleeding from trach site - acute on chronic anemia due to acute blood loss, requiring blood transfusion - s/p recurrent sepsis - 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 Blood cultures from HD catheter on 12/13/2016 are negative to date. 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 MRI on 12/06/2016 and bone scan on showed early OM of the distal phalanx of the left great toe and left fourth proximal phalanx. superficial swab grew inna only. At present, no e/o persistent infection - recurrent pleural effusion - s/p right pleural effusion s/p thoracentesis with .9L removed on 12/16/2016; ( Note: there is no pleural fluid cx since orders were placed after Right thoracentesis, and Left thoracentesis was not performed on 12/17/16 d/t insufficient fluid) - ARANZA on CKD that progressed to ESRD and started on HD from 12/09/2016 - oliguria - improved - A fib -> PAF - small nonreversible perfusion abnormality in the inferoapical and inferior carver; EF 36% per Lexiscan 12/24/2016 - severe , EF 40-45% per TTE 12/17/16 - DM - Hgb A1c 8.7% - HTN associated with DM - acute encephalopathy with anoxic brain injury - unstageable decubitus ulcer of coccyx, no evidence of infection - dysphagia s/p G-tube placement 02/08/2017 NOTE: Pt completed 6 weeks (12/03/2016-01/15/2017) of antibiotics to treat early OM of the distal phalanx of the left great toe and left fourth proximal phalanx ; s/p pip/tazo 12/03/16-01/08/17; linezolid 01/08/17-01/20/17; caspofungin 01/12/17-01/21/17 and 02/04/17-02/17/17; tobramycin 02/04/2017- 02/15/17 for pseudomonas; cefepime (02/02/17-02/18/17). recommendations: - monitor closely off abx - monitor wbc - continue nystatin for thrush - wound care of the coccyx and upper back Problems: Consultation Date/Type/Reason Admit Date/Time Dec 02, 2016 at 21:01 Type of Consultation: Infectious Disease Referring Provider: VIET PARKER MD 24 HR Interval Summary Free Text/Dictation late entry for 02.21.17 Exam/Review of Systems Vital Signs Vitals Vital Signs Date Time Temp Pulse Resp B/P Pulse Ox O2 Delivery O2 Flow Rate FiO2 02/22/17 16:38 67 02/22/17 15:48 98.3 17 107/69 99 02/22/17 15:20 30 Intake and Output 02/21/17 02/21/17 02/22/17 15:00 23:00 07:00 Intake Total 1260 ml 755 ml Output Total 2700 ml 500 ml Balance -1440 ml 255 ml Exam Constitutional: non-verbal Head: atraumatic, normocephalic Eyes: EOMI, PERRL, nl conjunctiva, nl lids, nl sclera ENMT: nl external ears & nose, nl lips & teeth, nl nasal mucosa & septum Respiratory: clear to auscultation, normal air movement Cardiovascular: nl pulses, regular rate and rhythm Gastrointestinal: nl liver, spleen, non-tender, soft Results Result Diagram: 02/22/17 0655 02/22/17 0655 Results 24 hrs Laboratory Tests Test 02/21/17 17:54 02/21/17 20:49 02/22/17 06:55 02/22/17 09:50 Bedside Glucose 174 169 201 White Blood Count 10.0 Red Blood Count 3.07 L Hemoglobin 8.7 L Hematocrit 27.6 L Mean Corpuscular Volume 89.9 Mean Corpuscular Hemoglobin 28.3 L Mean Corpuscular Hemoglobin Concent 31.5 L Red Cell Distribution Width 14.6 H Platelet Count 193 Mean Platelet Volume 9.5 Neutrophils % 78.7 H Lymphocytes % 11.3 L Monocytes % 7.6 Eosinophils % 0.6 Basophils % 0.2 Nucleated Red Blood Cells % 0.0 Neutrophils # 7.8 H Lymphocytes # 1.1 Monocytes # 0.8 Eosinophils # 0.1 Basophils # 0.0 Nucleated Red Blood Cells # 0.0 Sodium Level 132 L Potassium Level 4.4 Chloride Level 94 L Carbon Dioxide Level 34 H Anion Gap 8 Blood Urea Nitrogen 74 H Creatinine 1.60 H Glucose Level 201 Calcium Level 8.4 Test 02/22/17 13:07 Bedside Glucose 182 Medications Medications Current Medications Ondansetron HCl (Zofran Inj) 4 mg Q6H PRN IV NAUSEA AND/OR VOMITING Last administered on 02/14/17 14:24; Admin Dose 4 MG; Start 12/02/16 at 22:30 Miscellaneous Information 1 ea NOTE XX ; Start 12/02/16 at 23:00 Glucose (Glutose) 15 gm Q15M PRN PO DECREASED GLUCOSE; Start 12/02/16 at 23:00 Glucose (Glutose) 22.5 gm Q15M PRN PO DECREASED GLUCOSE; Start 12/02/16 at 23: 00 Dextrose (D50w Syringe) 25 ml Q15M PRN IV DECREASED GLUCOSE Last administered on 01/26/17 05:21; Admin Dose 25 ML; Start 12/02/16 at 23:00 Dextrose (D50w Syringe) 50 ml Q15M PRN IV DECREASED GLUCOSE Last administered on 01/23/17 04:58; Admin Dose 50 ML; Start 12/02/16 at 23:00 Glucagon (Glucagen) 1 mg Q15M PRN IM DECREASED GLUCOSE; Start 12/02/16 at 23:00 Glucose (Glutose) 15 gm Q15M PRN BUCCAL DECREASED GLUCOSE; Start 12/02/16 at 23 :00 Acetaminophen (Tylenol Supp) 650 mg Q6H PRN [place] ELEVATED TEMPERATURE Last administered on 01/13/17 20:32; Admin Dose 650 MG; Start 12/09/16 at 17:00 Hydralazine HCl (Apresoline) 10 mg Q6H PRN IV SBP>150mm hg Last administered on 12/19/16 08:50; Admin Dose 10 MG; Start 12/11/16 at 10:30 Morphine Sulfate (morphine) 2 mg Q2H PRN IV PAIN LEVEL 4-7; Start 12/13/16 at 10 :00 Collagenase (Santyl) 1 applic DAILY TOP Last administered on 02/22/17 09:56; Admin Dose 1 APPLIC; Start 01/04/17 at 09:00 Metoprolol Tartrate (Lopressor) 5 mg Q4 PRN IV FOR H.R>110; Start 01/12/17 at 17:30 Acetaminophen (Tylenol Liquid) 650 mg Q6H PRN NGT PAIN AND OR ELEVATED TEMP Last administered on 02/03/17 17:37; Admin Dose 650 MG; Start 01/13/17 at 23:30 Acetaminophen/ Hydrocodone Bitart ([place] (5/325)) 1 tab Q6H PRN NGT PAIN LEVEL 4-7; Start 01/13/17 at 23:30 Levetiracetam (Keppra Liquid) 1,000 mg DAILY NGT Last administered on 09:55; Admin Dose 1,000 MG; Start 01/14/17 at 09:00 Meclizine HCl (Antivert) 25 mg TID PRN NGT dizziness; Start 01/13/17 at 20:00 Zolpidem Tartrate (Ambien) 5 mg HS PRN NGT INSOMNIA; Start 01/13/17 at 20:00 Metoprolol Tartrate (Lopressor) 12.5 mg BID NGT Last administered on 02/22/17 09:56; Admin Dose 12.5 MG; Start 01/24/17 at 21:00 Nystatin (Nystatin Susp) 5 ml Q6 PO Last administered on 02/22/17 13:11; Admin Dose 5 ML; Start 01/31/17 at 12:00 Lansoprazole (Prevacid) 30 mg DAILY@06 GTB Last administered on 02/22/17 06:05 ; Admin Dose 30 MG; Start 02/09/17 at 06:00 Zinc Sulfate (Zinc Sulfate) 220 mg DAILY GTB Last administered on 02/22/17 09: 55; Admin Dose 220 MG; Start 02/14/17 at 15:00 Multivitamins (Multivitamin) 30 ml DAILY GTB Last administered on 02/22/17 09: 55; Admin Dose 30 ML; Start 02/14/17 at 16:30 Docusate Sodium (Colace Liquid Cup) 100 mg BID GTB Last administered on 09:54; Admin Dose 100 MG; Start 02/14/17 at 21:00 Apixaban (Eliquis) 2.5 mg BID GTB Last administered on 02/22/17 09:55; Admin Dose 2.5 MG; Start 02/14/17 at 21:00 Amiodarone HCl (Cordarone) 200 mg DAILY GTB Last administered on 02/22/17 09: 55; Admin Dose 200 MG; Start 02/19/17 at 09:00 Diagnostic Test (Pha) (Accu-Chek) 1 ea 02 XX Last administered on 02/20/17 02: 12; Admin Dose 1 EA; Start 02/20/17 at 02:00 Ascorbic Acid (Vitamin C) 500 mg DAILY GTB Last administered on 02/22/17 09:54 ; Admin Dose 500 MG; Start 02/22/17 at 09:00 Insulin Glargine (Lantus) 52 unit DAILY@20 SC Last administered on 02/21/17 21 :13; Admin Dose 52 UNIT; Start 02/21/17 at 20:00 NIKHIL RAM MD Feb 22, 2017 16:43
--- NOTE | 2017-02-22 17:06 | PN ---
Date/Time of Note Date/Time of Note DATE: 02/22/17 TIME: 17:04 Assessment/Plan VTE Prophylaxis VTE Prophylaxis Intervention: SCD's Lines/Catheters IV [facility] Saline Lock Urinary Cath still in place: No Assessment/Plan Chief Complaint/Hosp Course Blood sugar is better controlled continue to monitor, no acute events overnight. Will increase Lantus to 56 units nightly. ASSESSMENT AND PLAN: - Sacral decubitus ulcer, Dr. Ureña is following in surgical consultation for possible debridement. Continue multivitamins and zinc sulfate. - Possible recurrent sepsis, resolving. Continue antibiotics per ID. Dr Celena pritchard is following infection disease consultation. - Dysphagia. S/p G-tube by Dr. Smith. Continue G-tube feeding, monitor residual. - Anemia of blood loss. Continue to monitor H&H, transfuse as needed. - Status post cardiopulmonary arrest on 12/09/2016 and 01/08/2017. Continue ventilatory support. - Anoxic encephalopathy. Continue Keppra. - Status post tracheostomy on 01/23/2017. Continue tracheostomy care. - End-stage renal disease. Continue hemodialysis per nephrology. - Paroxysmal atrial fibrillation. Continue Eliquis. - Diabetes mellitus type 2. Continue Lantus and NovoLog with sliding scale coverage with Accu-Cheks q. 4 hours. - Diabetic foot ulcer. Continue current wound care. - Osteomyelitis of the distal phalanx of the great left toe. Completed treatment for antibiotics. Continue sequential compression device for deep venous thrombosis prophylaxis and Protonix for peptic ulcer disease prophylaxis. Further recommendations based on clinical course. Plan of care discussed with Dr. Heredia. Problems: Exam/Review of Systems Vital Signs Vitals Vital Signs Date Time Temp Pulse Resp B/P Pulse Ox O2 Delivery O2 Flow Rate FiO2 02/22/17 16:38 67 02/22/17 15:48 98.3 17 107/69 99 02/22/17 15:20 30 Intake and Output 02/21/17 02/21/17 02/22/17 15:00 23:00 07:00 Intake Total 1260 ml 755 ml Output Total 2700 ml 500 ml Balance -1440 ml 255 ml Exam Constitutional: non-verbal Head: atraumatic, normocephalic ENMT: other (Nasogastric tube) Neck: other (Tracheostomy), supple Respiratory: diminished breath sounds Cardiovascular: nl pulses Gastrointestinal: non-tender, soft, GT Neurological: unresponsive Results Result Diagram: 02/22/17 0655 02/22/17 0655 Results 24 hrs Laboratory Tests Test 02/21/17 17:54 02/21/17 20:49 02/22/17 06:55 02/22/17 09:50 Bedside Glucose 174 169 201 White Blood Count 10.0 Red Blood Count 3.07 L Hemoglobin 8.7 L Hematocrit 27.6 L Mean Corpuscular Volume 89.9 Mean Corpuscular Hemoglobin 28.3 L Mean Corpuscular Hemoglobin Concent 31.5 L Red Cell Distribution Width 14.6 H Platelet Count 193 Mean Platelet Volume 9.5 Neutrophils % 78.7 H Lymphocytes % 11.3 L Monocytes % 7.6 Eosinophils % 0.6 Basophils % 0.2 Nucleated Red Blood Cells % 0.0 Neutrophils # 7.8 H Lymphocytes # 1.1 Monocytes # 0.8 Eosinophils # 0.1 Basophils # 0.0 Nucleated Red Blood Cells # 0.0 Sodium Level 132 L Potassium Level 4.4 Chloride Level 94 L Carbon Dioxide Level 34 H Anion Gap 8 Blood Urea Nitrogen 74 H Creatinine 1.60 H Glucose Level 201 Calcium Level 8.4 Test 02/22/17 13:07 Bedside Glucose 182 Medications Medications Current Medications Ondansetron HCl (Zofran Inj) 4 mg Q6H PRN IV NAUSEA AND/OR VOMITING Last administered on 02/14/17 14:24; Admin Dose 4 MG; Start 12/02/16 at 22:30 Miscellaneous Information 1 ea NOTE XX ; Start 12/02/16 at 23:00 Glucose (Glutose) 15 gm Q15M PRN PO DECREASED GLUCOSE; Start 12/02/16 at 23:00 Glucose (Glutose) 22.5 gm Q15M PRN PO DECREASED GLUCOSE; Start 12/02/16 at 23: 00 Dextrose (D50w Syringe) 25 ml Q15M PRN IV DECREASED GLUCOSE Last administered on 01/26/17 05:21; Admin Dose 25 ML; Start 12/02/16 at 23:00 Dextrose (D50w Syringe) 50 ml Q15M PRN IV DECREASED GLUCOSE Last administered on 01/23/17 04:58; Admin Dose 50 ML; Start 12/02/16 at 23:00 Glucagon (Glucagen) 1 mg Q15M PRN IM DECREASED GLUCOSE; Start 12/02/16 at 23:00 Glucose (Glutose) 15 gm Q15M PRN BUCCAL DECREASED GLUCOSE; Start 12/02/16 at 23 :00 Acetaminophen (Tylenol Supp) 650 mg Q6H PRN [place] ELEVATED TEMPERATURE Last administered on 01/13/17 20:32; Admin Dose 650 MG; Start 12/09/16 at 17:00 Hydralazine HCl (Apresoline) 10 mg Q6H PRN IV SBP>150mm hg Last administered on 12/19/16 08:50; Admin Dose 10 MG; Start 12/11/16 at 10:30 Morphine Sulfate (morphine) 2 mg Q2H PRN IV PAIN LEVEL 4-7; Start 12/13/16 at 10 :00 Collagenase (Santyl) 1 applic DAILY TOP Last administered on 02/22/17 09:56; Admin Dose 1 APPLIC; Start 01/04/17 at 09:00 Metoprolol Tartrate (Lopressor) 5 mg Q4 PRN IV FOR H.R>110; Start 01/12/17 at 17:30 Acetaminophen (Tylenol Liquid) 650 mg Q6H PRN NGT PAIN AND OR ELEVATED TEMP Last administered on 02/03/17 17:37; Admin Dose 650 MG; Start 01/13/17 at 23:30 Acetaminophen/ Hydrocodone Bitart ([place] (5/325)) 1 tab Q6H PRN NGT PAIN LEVEL 4-7; Start 01/13/17 at 23:30 Levetiracetam (Keppra Liquid) 1,000 mg DAILY NGT Last administered on 09:55; Admin Dose 1,000 MG; Start 01/14/17 at 09:00 Meclizine HCl (Antivert) 25 mg TID PRN NGT dizziness; Start 01/13/17 at 20:00 Zolpidem Tartrate (Ambien) 5 mg HS PRN NGT INSOMNIA; Start 01/13/17 at 20:00 Metoprolol Tartrate (Lopressor) 12.5 mg BID NGT Last administered on 02/22/17 09:56; Admin Dose 12.5 MG; Start 01/24/17 at 21:00 Nystatin (Nystatin Susp) 5 ml Q6 PO Last administered on 02/22/17 13:11; Admin Dose 5 ML; Start 01/31/17 at 12:00 Lansoprazole (Prevacid) 30 mg DAILY@06 GTB Last administered on 02/22/17 06:05 ; Admin Dose 30 MG; Start 02/09/17 at 06:00 Zinc Sulfate (Zinc Sulfate) 220 mg DAILY GTB Last administered on 02/22/17 09: 55; Admin Dose 220 MG; Start 02/14/17 at 15:00 Multivitamins (Multivitamin) 30 ml DAILY GTB Last administered on 02/22/17 09: 55; Admin Dose 30 ML; Start 02/14/17 at 16:30 Docusate Sodium (Colace Liquid Cup) 100 mg BID GTB Last administered on 09:54; Admin Dose 100 MG; Start 02/14/17 at 21:00 Apixaban (Eliquis) 2.5 mg BID GTB Last administered on 02/22/17 09:55; Admin Dose 2.5 MG; Start 02/14/17 at 21:00 Amiodarone HCl (Cordarone) 200 mg DAILY GTB Last administered on 02/22/17 09: 55; Admin Dose 200 MG; Start 02/19/17 at 09:00 Diagnostic Test (Pha) (Accu-Chek) 1 ea 02 XX Last administered on 02/20/17 02: 12; Admin Dose 1 EA; Start 02/20/17 at 02:00 Ascorbic Acid (Vitamin C) 500 mg DAILY GTB Last administered on 02/22/17 09:54 ; Admin Dose 500 MG; Start 02/22/17 at 09:00 Insulin Glargine (Lantus) 52 unit DAILY@20 SC Last administered on 02/21/17 21 :13; Admin Dose 52 UNIT; Start 02/21/17 at 20:00 KIMBERLY NOYOLA Feb 22, 2017 17:05 KIMBERLY NOYOLA Feb 22, 2017 17:05
[2017-02-22] MEDS: INSULIN GLARGINE [LANtus] 3 ML PEN SC SCH (21:08)
[2017-02-23] VITALS (31 sets, daily range): BP systolic 88–128; BP diastolic 42–78; PULSE 68–78; RESP 16–19
[2017-02-23] MEDS: NYSTATIN SUSP 5 ML CUP PO SCH ×4 (00:40→18:29)
[2017-02-23] MEDS: ALBUTEROL 18 GM INHALER INH SCH ×4 (01:23→20:23)
[2017-02-23] MEDS: ACCU-CHEK XX SCH (01:35)
[2017-02-23] MEDS: INSULIN ASPART [NOVOLOG] 3 ML PEN SC SCH ×5 (04:45→21:00)
[2017-02-23] MEDS: LANSOPRAZOLE 30 MG CAP GTB SCH (05:09)
[2017-02-23 08:56] LABS: ADD SCAN DIFF NO
[2017-02-23 09:00] LABS: BASOPHILS % 0.2 % (0.0-2.0); EOSINOPHILS # 0.1 10^3/ul (0.0-0.5); EOSINOPHILS % 0.6 % (0.0-7.0); HEMATOCRIT 27.2 % (42.0-52.0); HEMOGLOBIN 8.7 g/dl (14.0-18.0); LYMPHOCYTES # 1.1 10^3/ul (0.8-2.9); MEAN CORPUSCULAR HEMOGLOBIN 28.3 pg (29.0-33.0); MEAN CORPUSCULAR VOLUME 88.6 fl (82.0-101.0); MONOCYTE # 0.7 10^3/ul (0.3-0.9); MONOCYTES % 6.7 % (0.0-11.0); NEUTROPHIL # 8.8 10^3/ul (1.6-7.5); NEUTROPHILS % 81.2 % (39.0-77.0); PLATELET COUNT 215 10^3/UL (140-415); RED BLOOD COUNT 3.07 10^6/ul (4.70-6.10); RED CELL DISTRIBUTION WIDTH 14.4 % (11.5-14.5); WHITE BLOOD COUNT 10.9 10^3/ul (4.8-10.8)
[2017-02-23 09:24] LABS: CALCIUM 8.2 mg/dl (8.4-10.2); CREATININE 1.85 mg/dl (0.61-1.24); POTASSIUM 4.5 mmol/L (3.5-5.1)
[2017-02-23] MEDS: METOPROLOL 25 MG TAB NGT SCH ×2 (09:32→21:15)
[2017-02-23] MEDS: AMIODARONE 200 MG TAB GTB SCH (09:32)
[2017-02-23] MEDS: ASCORBIC ACID 500 MG TAB GTB SCH (09:33)
[2017-02-23] MEDS: DOCUSATE SODIUM 10 MG/ML (10ML CUP) GTB SCH ×2 (09:33→21:15)
[2017-02-23] MEDS: APIXABAN 5 MG TABLET GTB SCH ×2 (09:33→21:15)
[2017-02-23] MEDS: MULTIVITAMINS 30 ML CUP GTB SCH (09:33)
[2017-02-23] MEDS: ZINC SULFATE 220 MG CAP GTB SCH (09:33)
[2017-02-23] MEDS: LEVETIRACETAM (100 MG/ML) 5ML CUP NGT SCH (09:34)
[2017-02-23] MEDS: COLLAGENASE 30 GM TUBE TOP SCH (09:35)
--- NOTE | 2017-02-23 11:59 | PN ---
Date/Time of Note Date/Time of Note DATE: 02/23/17 TIME: 11:55 Assessment/Plan VTE Prophylaxis VTE Prophylaxis Intervention: SCD's Lines/Catheters [facility] Urinary Cath still in place: No Assessment/Plan Chief Complaint/Hosp Course Blood sugar is well controlled, no acute events per RN, patient remains hemodynamically stable. ASSESSMENT AND PLAN: - Sacral decubitus ulcer, Dr. Ureña is following in surgical consultation for possible debridement. Continue multivitamins, zinc sulfate, offloading. - Possible recurrent sepsis, resolving. Continue antibiotics per ID. Dr Celena pritchard is following infection disease consultation. - Dysphagia. S/p G-tube by Dr. Smith. Continue G-tube feeding, monitor residual, aspiration precautions. - Anemia of blood loss. Continue to monitor H&H, transfuse as needed. - Status post cardiopulmonary arrest on 12/09/2016 and 01/08/2017. Continue ventilatory support. - Anoxic encephalopathy. Continue Keppra. - Status post tracheostomy on 01/23/2017. Continue tracheostomy care. - End-stage renal disease. Continue hemodialysis per nephrology. - Paroxysmal atrial fibrillation. Continue Eliquis. - Diabetes mellitus type 2. Continue Lantus and NovoLog with sliding scale coverage with Accu-Cheks q. 4 hours. - Diabetic foot ulcer. Continue current wound care. - Osteomyelitis of the distal phalanx of the great left toe. Completed treatment for antibiotics. Continue sequential compression device for deep venous thrombosis prophylaxis and Protonix for peptic ulcer disease prophylaxis. Further recommendations based on clinical course. Plan of care discussed with Dr. Heredia. Problems: Exam/Review of Systems Vital Signs Vitals Vital Signs Date Time Temp Pulse Resp B/P Pulse Ox O2 Delivery O2 Flow Rate FiO2 02/23/17 11:49 98.5 71 17 104/54 97 02/23/17 11:13 30 Intake and Output 02/22/17 02/22/17 02/23/17 15:00 23:00 07:00 Intake Total 860 ml 840 ml Output Total 600 ml 550 ml Balance 260 ml 290 ml Exam Constitutional: non-verbal Head: atraumatic, normocephalic ENMT: other (Nasogastric tube) Neck: other (Tracheostomy), supple Respiratory: diminished breath sounds Cardiovascular: nl pulses Gastrointestinal: non-tender, soft, GT Neurological: unresponsive Results Result Diagram: 02/23/17 0730 02/23/17 0730 Results 24 hrs Laboratory Tests Test 02/22/17 13:07 02/22/17 17:50 02/22/17 20:57 02/23/17 01:16 Bedside Glucose 182 107 106 95 Test 02/23/17 04:44 02/23/17 07:30 02/23/17 09:28 Bedside Glucose 110 114 White Blood Count 10.9 H Red Blood Count 3.07 L Hemoglobin 8.7 L Hematocrit 27.2 L Mean Corpuscular Volume 88.6 Mean Corpuscular Hemoglobin 28.3 L Mean Corpuscular Hemoglobin Concent 32.0 Red Cell Distribution Width 14.4 Platelet Count 215 Mean Platelet Volume 10.0 Neutrophils % 81.2 H Lymphocytes % 10.0 L Monocytes % 6.7 Eosinophils % 0.6 Basophils % 0.2 Nucleated Red Blood Cells % 0.0 Neutrophils # 8.8 H Lymphocytes # 1.1 Monocytes # 0.7 Eosinophils # 0.1 Basophils # 0.0 Nucleated Red Blood Cells # 0.0 Sodium Level 132 L Potassium Level 4.5 Chloride Level 96 L Carbon Dioxide Level 31 Anion Gap 10 Blood Urea Nitrogen 90 H Creatinine 1.85 H Glucose Level 90 # Calcium Level 8.2 L Medications Medications Current Medications Ondansetron HCl (Zofran Inj) 4 mg Q6H PRN IV NAUSEA AND/OR VOMITING Last administered on 02/14/17 14:24; Admin Dose 4 MG; Start 12/02/16 at 22:30 Miscellaneous Information 1 ea NOTE XX ; Start 12/02/16 at 23:00 Glucose (Glutose) 15 gm Q15M PRN PO DECREASED GLUCOSE; Start 12/02/16 at 23:00 Glucose (Glutose) 22.5 gm Q15M PRN PO DECREASED GLUCOSE; Start 12/02/16 at 23: 00 Dextrose (D50w Syringe) 25 ml Q15M PRN IV DECREASED GLUCOSE Last administered on 01/26/17 05:21; Admin Dose 25 ML; Start 12/02/16 at 23:00 Dextrose (D50w Syringe) 50 ml Q15M PRN IV DECREASED GLUCOSE Last administered on 01/23/17 04:58; Admin Dose 50 ML; Start 12/02/16 at 23:00 Glucagon (Glucagen) 1 mg Q15M PRN IM DECREASED GLUCOSE; Start 12/02/16 at 23:00 Glucose (Glutose) 15 gm Q15M PRN BUCCAL DECREASED GLUCOSE; Start 12/02/16 at 23 :00 Acetaminophen (Tylenol Supp) 650 mg Q6H PRN [place] ELEVATED TEMPERATURE Last administered on 01/13/17 20:32; Admin Dose 650 MG; Start 12/09/16 at 17:00 Hydralazine HCl (Apresoline) 10 mg Q6H PRN IV SBP>150mm hg Last administered on 12/19/16 08:50; Admin Dose 10 MG; Start 12/11/16 at 10:30 Morphine Sulfate (morphine) 2 mg Q2H PRN IV PAIN LEVEL 4-7; Start 12/13/16 at 10 :00 Collagenase (Santyl) 1 applic DAILY TOP Last administered on 02/23/17 09:35; Admin Dose 1 APPLIC; Start 01/04/17 at 09:00 Metoprolol Tartrate (Lopressor) 5 mg Q4 PRN IV FOR H.R>110; Start 01/12/17 at 17:30 Acetaminophen (Tylenol Liquid) 650 mg Q6H PRN NGT PAIN AND [place] ELEVATED TEMP Last administered on 02/03/17 17:37; Admin Dose 650 MG; Start 01/13/17 at 23:30 Acetaminophen/ Hydrocodone Bitart ([place] (5/325)) 1 tab Q6H PRN NGT PAIN LEVEL 4-7; Start 01/13/17 at 23:30 Levetiracetam (Keppra Liquid) 1,000 mg DAILY NGT Last administered on 09:34; Admin Dose 1,000 MG; Start 01/14/17 at 09:00 Meclizine HCl (Antivert) 25 mg TID PRN NGT dizziness; Start 01/13/17 at 20:00 Zolpidem Tartrate (Ambien) 5 mg HS PRN NGT INSOMNIA; Start 01/13/17 at 20:00 Metoprolol Tartrate (Lopressor) 12.5 mg BID NGT Last administered on 02/23/17 09:32; Admin Dose 12.5 MG; Start 01/24/17 at 21:00 Nystatin (Nystatin Susp) 5 ml Q6 PO Last administered on 02/23/17 05:09; Admin Dose 5 ML; Start 01/31/17 at 12:00 Lansoprazole (Prevacid) 30 mg DAILY@06 GTB Last administered on 02/23/17 05:09 ; Admin Dose 30 MG; Start 02/09/17 at 06:00 Zinc Sulfate (Zinc Sulfate) 220 mg DAILY GTB Last administered on 02/23/17 09: 33; Admin Dose 220 MG; Start 02/14/17 at 15:00 Multivitamins (Multivitamin) 30 ml DAILY GTB Last administered on 02/23/17 09: 33; Admin Dose 30 ML; Start 02/14/17 at 16:30 Docusate Sodium (Colace Liquid Cup) 100 mg BID GTB Last administered on 09:33; Admin Dose 100 MG; Start 02/14/17 at 21:00 Apixaban (Eliquis) 2.5 mg BID GTB Last administered on 02/23/17 09:33; Admin Dose 2.5 MG; Start 02/14/17 at 21:00 Amiodarone HCl (Cordarone) 200 mg DAILY GTB Last administered on 02/23/17 09: 32; Admin Dose 200 MG; Start 02/19/17 at 09:00 Ascorbic Acid (Vitamin C) 500 mg DAILY GTB Last administered on 02/23/17 09:33 ; Admin Dose 500 MG; Start 02/22/17 at 09:00 Insulin Glargine (Lantus) 56 unit DAILY@20 SC Last administered on 02/22/17 21 :08; Admin Dose 56 UNIT; Start 02/22/17 at 20:00 Insulin Aspart (Novolog Insulin Pen) NOVOLOG *MODERATE* ALGORI... Q4 SC ; Start 02/23/17 at 05:00 KIMBERLY NOYOLA Feb 23, 2017 11:58
[2017-02-23] MEDS: ONDANSETRON 4 MG INJ IV PRN (12:49)
[2017-02-23] MEDS ORDERED: SOD CHLORIDE 0.45% 1,000 ML IV SCH (13:00)
--- NOTE | 2017-02-23 13:07 | CONS ---
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 Blood cultures from HD catheter on 12/13/2016 are negative to date. 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 MRI on 12/06/2016 and bone scan on showed early OM of the distal phalanx of the left great toe and left fourth proximal phalanx. superficial swab grew inna only - s/p right pleural effusion s/p thoracentesis with .9L removed on 12/16/2016 - severe , EF 40-45% per TTE 12/17/16 - DM - Hgb A1c 8.7% - HTN associated with DM - sp Tracheostomy site bleeding Plan: HD today, will conitnue HD on MWF s/p Tracheostomy, on ventilator pt will need HD palcement at a unit where they can do a HD for pt with tracheostomy and PEG tube placemen t- case aide has been instructed to set up [facility] [place] pt has severe , very labile BP sometimes with HD will continue to follow up for HD need Plan of`care Dw Dr Evelina Remy/staff/ patient family. Consultation Date/Type/Reason Admit Date/Time Dec 02, 2016 at 21:01 Initial Consult Date 12/08/16 Type of Consultation: NEPHROLOGY Referring Provider: VIET PARKER MD 24 HR Interval Summary Free Text/Dictation getting HD now, tolerating well. vomited x 1-? bile vomitus, no hemoptysis reported. TF stopped- gentle hydration, aspiration precautions, Stat cxr r/o aspiration- dw staff Subjective hx not possible: pt non-verbal Constitutional: requiring IVF, requiring O2 Exam/Review of Systems Vital Signs Vitals Vital Signs Date Time Temp Pulse Resp B/P Pulse Ox O2 Delivery O2 Flow Rate FiO2 02/23/17 12:13 76 02/23/17 11:49 98.5 17 104/54 97 02/23/17 11:13 30 Intake and Output 02/22/17 02/22/17 02/23/17 15:00 23:00 07:00 Intake Total 860 ml 840 ml Output Total 600 ml 550 ml Balance 260 ml 290 ml Exam Constitutional: non-verbal Respiratory: diminished breath sounds Cardiovascular: nl pulses, regular rate and rhythm Gastrointestinal: non-tender, soft Musculoskeletal: muscle weakness Extremities: normal pulses Neurological: unresponsive Results Result Diagram: 02/23/17 0730 02/23/17 0730 Results 24 hrs Laboratory Tests Test 02/22/17 13:07 02/22/17 17:50 02/22/17 20:57 02/23/17 01:16 Bedside Glucose 182 107 106 95 Test 02/23/17 04:44 02/23/17 07:30 02/23/17 09:28 02/23/17 12:20 Bedside Glucose 110 114 144 White Blood Count 10.9 H Red Blood Count 3.07 L Hemoglobin 8.7 L Hematocrit 27.2 L Mean Corpuscular Volume 88.6 Mean Corpuscular Hemoglobin 28.3 L Mean Corpuscular Hemoglobin Concent 32.0 Red Cell Distribution Width 14.4 Platelet Count 215 Mean Platelet Volume 10.0 Neutrophils % 81.2 H Lymphocytes % 10.0 L Monocytes % 6.7 Eosinophils % 0.6 Basophils % 0.2 Nucleated Red Blood Cells % 0.0 Neutrophils # 8.8 H Lymphocytes # 1.1 Monocytes # 0.7 Eosinophils # 0.1 Basophils # 0.0 Nucleated Red Blood Cells # 0.0 Sodium Level 132 L Potassium Level 4.5 Chloride Level 96 L Carbon Dioxide Level 31 Anion Gap 10 Blood Urea Nitrogen 90 H Creatinine 1.85 H Glucose Level 90 # Calcium Level 8.2 L Medications Medications Current Medications Ondansetron HCl (Zofran Inj) 4 mg Q6H PRN IV NAUSEA AND/OR VOMITING Last administered on 02/14/17t 14:24; Admin Dose 4 MG; Start 12/02/16 at 22:30 Miscellaneous Information 1 ea NOTE XX ; Start 12/02/16 at 23:00 Glucose (Glutose) 15 gm Q15M PRN PO DECREASED GLUCOSE; Start 12/02/16 at 23:00 Glucose (Glutose) 22.5 gm Q15M PRN PO DECREASED GLUCOSE; Start 12/02/16 at 23: 00 Dextrose (D50w Syringe) 25 ml Q15M PRN IV DECREASED GLUCOSE Last administered on 01/26/17 05:21; Admin Dose 25 ML; Start 12/02/16 at 23:00 Dextrose (D50w Syringe) 50 ml Q15M PRN IV DECREASED GLUCOSE Last administered on 01/23/17 04:58; Admin Dose 50 ML; Start 12/02/16 at 23:00 Glucagon (Glucagen) 1 mg Q15M PRN IM DECREASED GLUCOSE; Start 12/02/16 at 23:00 Glucose (Glutose) 15 gm Q15M PRN BUCCAL DECREASED GLUCOSE; Start 12/02/16 at 23 :00 Acetaminophen (Tylenol Supp) 650 mg Q6H PRN [place] ELEVATED TEMPERATURE Last administered on 01/13/17 20:32; Admin Dose 650 MG; Start 12/09/16 at 17:00 Hydralazine HCl (Apresoline) 10 mg Q6H PRN IV SBP>150mm hg Last administered on 12/19/16 08:50; Admin Dose 10 MG; Start 12/11/16 at 10:30 Morphine Sulfate (morphine) 2 mg Q2H PRN IV PAIN LEVEL 4-7; Start 12/13/16 at 10 :00 Collagenase (Santyl) 1 applic DAILY TOP Last administered on 02/23/17 09:35; Admin Dose 1 APPLIC; Start 01/04/17 at 09:00 Metoprolol Tartrate (Lopressor) 5 mg Q4 PRN IV FOR H.R>110; Start 01/12/17 at 17:30 Acetaminophen (Tylenol Liquid) 650 mg Q6H PRN NGT PAIN AND [place] ELEVATED TEMP Last administered on 02/03/17 17:37; Admin Dose 650 MG; Start 01/13/17 at 23:30 Acetaminophen/ Hydrocodone Bitart ([place] (5/325)) 1 tab Q6H PRN NGT PAIN LEVEL 4-7; Start 01/13/17 at 23:30 Levetiracetam (Keppra Liquid) 1,000 mg DAILY NGT Last administered on 09:34; Admin Dose 1,000 MG; Start 01/14/17 at 09:00 Meclizine HCl (Antivert) 25 mg TID PRN NGT dizziness; Start 01/13/17 at 20:00 Zolpidem Tartrate (Ambien) 5 mg HS PRN NGT INSOMNIA; Start 01/13/17 at 20:00 Metoprolol Tartrate (Lopressor) 12.5 mg BID NGT Last administered on 02/23/17 09:32; Admin Dose 12.5 MG; Start 01/24/17 at 21:00 Nystatin (Nystatin Susp) 5 ml Q6 PO Last administered on 02/23/17 05:09; Admin Dose 5 ML; Start 01/31/17 at 12:00 Lansoprazole (Prevacid) 30 mg DAILY@06 GTB Last administered on 02/23/17 05:09 ; Admin Dose 30 MG; Start 02/09/17 at 06:00 Zinc Sulfate (Zinc Sulfate) 220 mg DAILY GTB Last administered on 02/23/17 09: 33; Admin Dose 220 MG; Start 02/14/17 at 15:00 Multivitamins (Multivitamin) 30 ml DAILY GTB Last administered on 02/23/17 09: 33; Admin Dose 30 ML; Start 02/14/17 at 16:30 Docusate Sodium (Colace Liquid Cup) 100 mg BID GTB Last administered on 09:33; Admin Dose 100 MG; Start 02/14/17 at 21:00 Apixaban (Eliquis) 2.5 mg BID GTB Last administered on 02/23/17 09:33; Admin Dose 2.5 MG; Start 02/14/17 at 21:00 Amiodarone HCl (Cordarone) 200 mg DAILY GTB Last administered on 02/23/17 09: 32; Admin Dose 200 MG; Start 02/19/17 at 09:00 Ascorbic Acid (Vitamin C) 500 mg DAILY GTB Last administered on 02/23/17 09:33 ; Admin Dose 500 MG; Start 02/22/17 at 09:00 Insulin Glargine (Lantus) 56 unit DAILY@20 SC Last administered on 02/22/17 21 :08; Admin Dose 56 UNIT; Start 02/22/17 at 20:00 Insulin Aspart (Novolog Insulin Pen) NOVOLOG *MODERATE* ALGORI... Q4 SC ; Start 02/23/17 at 05:00 YULIANA SIMMONS Feb 23, 2017 12:52
[2017-02-23] MEDS: SOD CHLORIDE 0.9% 1,000 ML IV SCH (14:30)
--- NOTE | 2017-02-23 14:30 | CONS ---
Date/Time of Note Date/Time of Note DATE: 02/23/17 TIME: 14:24 Assessment/Plan Assessment/Plan Chief Complaint/Hosp Course IMPRESSION: 1. Atrial fibrillation-Having episodes of PAF with reasonable rate control. Currently remains in SR 2. Hypotension-overall improved and stable and tolerating low dose BB 3. Abnormal electrocardiogram with inferolateral T-wave inversions. 4. Respiratory failure-s/p trach placement 5. Nonhealing toe ulceration-vascular following 6. Peripheral arterial disease by arterial ultrasound of the lower extremities this admission. 7. Diabetes mellitus. 8. Fevers. 9. Positive troponin-downtrended 10.Bradycardia-improved/stable 11.-severe by echo 12.Cardiomyopathy-EF 40-45% by echo/36% by stress with no ischemia but positive scar. EF <30% by echo post arrest 13.Encephalopathy-anoxic 14. s/p cardiopulmonary arrest 01/08 15. Pre-op-for debridemnt of decubitis ulcer- Patient at this time has no definite cardiac contraindication to proceeding to OR for debridement but is at high risk for CV complications due to severe and cardiomyopathy 16. Hyponatremia Recc: -Tele -serial ecg -HD for volume removal as tolerated ongoing today -Continue eliquis at this time and follow for recurrent bleeding -Continue PO amio in attempt to maintain SR, now daily -Continue BB as tolerated only following HR/BP closely -Will hold on afterload reduction given severe and thus fixed afterload at valve orifice -Possible pnding debridement Problems: Consultation Date/Type/Reason Admit Date/Time Dec 02, 2016 at 21:01 Initial Consult Date 12/03/16 Type of Consultation: cardiology Reason for Consultation PAF//cardiomyopathy Referring Provider: VIET PARKER MD Exam/Review of Systems Vital Signs Vitals Vital Signs Date Time Temp Pulse Resp B/P Pulse Ox O2 Delivery O2 Flow Rate FiO2 02/23/17 13:11 74 17 98 30 02/23/17 11:49 98.5 104/54 Intake and Output 02/22/17 02/22/17 02/23/17 15:00 23:00 07:00 Intake Total 860 ml 840 ml Output Total 600 ml 550 ml Balance 260 ml 290 ml Exam Review of Systems: CONSTITUTIONAL: No fevers, chills. PULMONARY: trached CARDIOVASCULAR: No chest pain/palpitations GASTROINTESTINAL: No nausea/vomiting. GENITOURINARY: No hematuria/dysuria. MUSCULOSKELETAL: No myagias/arthalgias. PSYCHIATRIC: The patient denies depression. NEUROLOGIC: lethargic Constitutional: other (encephalopathic) Psych: no complaints Head: normocephalic ENMT: mucosa pink and moist Neck: jvd, supple Respiratory: diminished breath sounds (at bbases/B) Cardiovascular: regular rate and rhythm Gastrointestinal: non-tender, soft Musculoskeletal: muscle tone (generalized weakness) Extremities: edema (none) Neurological: confused, lethargic Results Result Diagram: 02/23/17 0730 02/23/17 0730 Results 24 hrs Laboratory Tests Test 02/22/17 17:50 02/22/17 20:57 02/23/17 01:16 02/23/17 04:44 Bedside Glucose 107 106 95 110 Test 02/23/17 07:30 02/23/17 09:28 02/23/17 12:20 White Blood Count 10.9 H Red Blood Count 3.07 L Hemoglobin 8.7 L Hematocrit 27.2 L Mean Corpuscular Volume 88.6 Mean Corpuscular Hemoglobin 28.3 L Mean Corpuscular Hemoglobin Concent 32.0 Red Cell Distribution Width 14.4 Platelet Count 215 Mean Platelet Volume 10.0 Neutrophils % 81.2 H Lymphocytes % 10.0 L Monocytes % 6.7 Eosinophils % 0.6 Basophils % 0.2 Nucleated Red Blood Cells % 0.0 Neutrophils # 8.8 H Lymphocytes # 1.1 Monocytes # 0.7 Eosinophils # 0.1 Basophils # 0.0 Nucleated Red Blood Cells # 0.0 Sodium Level 132 L Potassium Level 4.5 Chloride Level 96 L Carbon Dioxide Level 31 Anion Gap 10 Blood Urea Nitrogen 90 H Creatinine 1.85 H Glucose Level 90 # Calcium Level 8.2 L Bedside Glucose 114 144 Medications Medications Current Medications Ondansetron HCl (Zofran Inj) 4 mg Q6H PRN IV NAUSEA AND/OR VOMITING Last administered on 02/23/17t 12:49; Admin Dose 4 MG; Start 12/02/16 at 22:30 Miscellaneous Information 1 ea NOTE XX ; Start 12/02/16 at 23:00 Glucose (Glutose) 15 gm Q15M PRN PO DECREASED GLUCOSE; Start 12/02/16 at 23:00 Glucose (Glutose) 22.5 gm Q15M PRN PO DECREASED GLUCOSE; Start 12/02/16 at 23: 00 Dextrose (D50w Syringe) 25 ml Q15M PRN IV DECREASED GLUCOSE Last administered on 01/26/17 05:21; Admin Dose 25 ML; Start 12/02/16 at 23:00 Dextrose (D50w Syringe) 50 ml Q15M PRN IV DECREASED GLUCOSE Last administered on 01/23/17 04:58; Admin Dose 50 ML; Start 12/02/16 at 23:00 Glucagon (Glucagen) 1 mg Q15M PRN IM DECREASED GLUCOSE; Start 12/02/16 at 23:00 Glucose (Glutose) 15 gm Q15M PRN BUCCAL DECREASED GLUCOSE; Start 12/02/16 at 23 :00 Acetaminophen (Tylenol Supp) 650 mg Q6H PRN [place] ELEVATED TEMPERATURE Last administered on 01/13/17 20:32; Admin Dose 650 MG; Start 12/09/16 at 17:00 Hydralazine HCl (Apresoline) 10 mg Q6H PRN IV SBP>150mm hg Last administered on 12/19/16 08:50; Admin Dose 10 MG; Start 12/11/16 at 10:30 Morphine Sulfate (morphine) 2 mg Q2H PRN IV PAIN LEVEL 4-7; Start 12/13/16 at 10 :00 Collagenase (Santyl) 1 applic DAILY TOP Last administered on 02/23/17 09:35; Admin Dose 1 APPLIC; Start 01/04/17 at 09:00 Metoprolol Tartrate (Lopressor) 5 mg Q4 PRN IV FOR H.R>110; Start 01/12/17 at 17:30 Acetaminophen (Tylenol Liquid) 650 mg Q6H PRN NGT PAIN AND [place] ELEVATED TEMP Last administered on 02/03/17 17:37; Admin Dose 650 MG; Start 01/13/17 at 23:30 Acetaminophen/ Hydrocodone Bitart ([place] (5/325)) 1 tab Q6H PRN NGT PAIN LEVEL 4-7; Start 01/13/17 at 23:30 Levetiracetam (Keppra Liquid) 1,000 mg DAILY NGT Last administered on 09:34; Admin Dose 1,000 MG; Start 01/14/17 at 09:00 Meclizine HCl (Antivert) 25 mg TID PRN NGT dizziness; Start 01/13/17 at 20:00 Zolpidem Tartrate (Ambien) 5 mg HS PRN NGT INSOMNIA; Start 01/13/17 at 20:00 Metoprolol Tartrate (Lopressor) 12.5 mg BID NGT Last administered on 02/23/17 09:32; Admin Dose 12.5 MG; Start 01/24/17 at 21:00 Nystatin (Nystatin Susp) 5 ml Q6 PO Last administered on 02/23/17 12:49; Admin Dose 5 ML; Start 01/31/17 at 12:00 Lansoprazole (Prevacid) 30 mg DAILY@06 GTB Last administered on 02/23/17 05:09 ; Admin Dose 30 MG; Start 02/09/17 at 06:00 Zinc Sulfate (Zinc Sulfate) 220 mg DAILY GTB Last administered on 02/23/17 09: 33; Admin Dose 220 MG; Start 02/14/17 at 15:00 Multivitamins (Multivitamin) 30 ml DAILY GTB Last administered on 02/23/17 09: 33; Admin Dose 30 ML; Start 02/14/17 at 16:30 Docusate Sodium (Colace Liquid Cup) 100 mg BID GTB Last administered on 09:33; Admin Dose 100 MG; Start 02/14/17 at 21:00 Apixaban (Eliquis) 2.5 mg BID GTB Last administered on 02/23/17 09:33; Admin Dose 2.5 MG; Start 02/14/17 at 21:00 Amiodarone HCl (Cordarone) 200 mg DAILY GTB Last administered on 02/23/17 09: 32; Admin Dose 200 MG; Start 02/19/17 at 09:00 Ascorbic Acid (Vitamin C) 500 mg DAILY GTB Last administered on 02/23/17 09:33 ; Admin Dose 500 MG; Start 02/22/17 at 09:00 Insulin Glargine (Lantus) 56 unit DAILY@20 SC Last administered on 02/22/17 21 :08; Admin Dose 56 UNIT; Start 02/22/17 at 20:00 Insulin Aspart NOVOLOG *MODERATE* ALGORI... Q4 SC Last administered on 13:02; Admin Dose 2 UNIT; Start 02/23/17 at 05:00 Sodium Chloride (1/2 NS) 1,000 ml @ 40 mls/hr Q24H IV Last administered on t 13:18; Admin Dose 40 MLS/HR; Start 02/23/17 at 13:00 VICENTE LESLIE Feb 23, 2017 14:30
--- NOTE | 2017-02-23 17:51 | CONS ---
Date/Time of Note Date/Time of Note DATE: 02/23/17 TIME: 17:49 Assessment/Plan Assessment/Plan Chief Complaint/Hosp Course -- recurrent cardiopulmonary arrest on 12/09/2016 and on 01/08/2017 possible recurrent sepsis due to pneumonia - recurrent cardiopulmonary arrest on 12/09/2016 and on 01/08/2017 - s/p sepsis due to possible tracheobronchitis/pneumonia - possible recurrent sepsis due to pneumonia - WBC downward trending - recurrent cardiopulmonary arrest on 12/09/2016 and on 01/08/2017 - s/p sepsis due to possible tracheobronchitis/pneumonia - recurrent pneumonia due to pseudomonas - s/p recurrent sepsis due to pneumonia +/- funguria - treated with cefepime, tobramycin, and caspofungin - s/p recurrent pneumonia due to pseudomonas - s/p sepsis due to possible tracheobronchitis/pneumonia - funguria - treated with caspofungin - thrush, refractory to nystatin - recurrent cardiopulmonary arrest on 12/09/2016 and on 01/08/2017 - hypoxic respiratory failure, intubated for the 2nd time on 12/12/2016; extubated 12/18/2016; re-intubated for the 3rd time 01/08/2017, s/p tracheostomy 06/2017 - bleeding from trach site - resolved - acute on chronic anemia due to acute blood loss, requiring blood transfusion - 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 Blood cultures from HD catheter on 12/13/2016 are negative to date. 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 MRI on 12/06/2016 and bone scan on showed early OM of the distal phalanx of the left great toe and left fourth proximal phalanx. superficial swab grew inna only. At present, no e/o persistent infection - recurrent pleural effusion - s/p right pleural effusion s/p thoracentesis with .9L removed on 12/16/2016; ( Note: there is no pleural fluid cx since orders were placed after Right thoracentesis, and Left thoracentesis was not performed on 12/17/16 d/t insufficient fluid) - ARANZA on CKD that progressed to ESRD and started on HD from 12/09/2016 - oliguria - improved - A fib -> PAF - small nonreversible perfusion abnormality in the inferoapical and inferior carver; EF 36% per Lexiscan 12/24/2016 - severe , EF 40-45% per TTE 12/17/16 - DM - Hgb A1c 8.7% - HTN associated with DM - acute encephalopathy with anoxic brain injury - unstageable decubitus ulcer of coccyx, no evidence of infection - dysphagia s/p G-tube placement 02/08/2017 NOTE: Pt completed 6 weeks (12/03/2016-01/15/2017) of antibiotics to treat early OM of the distal phalanx of the left great toe and left fourth proximal phalanx ; s/p pip/tazo 12/03/16-01/08/17; linezolid 01/08/17-01/20/17; caspofungin 01/12/17-01/21/17 and 02/04/17-02/17/17; tobramycin 02/04/2017- 02/15/17 for pseudomonas; cefepime (02/02/17-02/18/17). recommendations: - monitor closely off abx - continue nystatin for thrush - wound care of the coccyx and upper back Problems: Consultation Date/Type/Reason Admit Date/Time Dec 02, 2016 at 21:01 Type of Consultation: id Referring Provider: VIET PARKER MD Exam/Review of Systems Vital Signs Vitals Vital Signs Date Time Temp Pulse Resp B/P Pulse Ox O2 Delivery O2 Flow Rate FiO2 02/23/17 16:11 78 02/23/17 15:42 98.2 16 91/49 98 02/23/17 15:26 30 Intake and Output 02/22/17 02/22/17 02/23/17 15:00 23:00 07:00 Intake Total 860 ml 840 ml Output Total 600 ml 550 ml Balance 260 ml 290 ml Exam Constitutional: alert Psych: nl mood/affect, no complaints Head: atraumatic, normocephalic Eyes: EOMI, PERRL, nl conjunctiva, nl lids, nl sclera Neck: non-tender, supple Respiratory: clear to auscultation, normal air movement Cardiovascular: nl pulses, regular rate and rhythm Gastrointestinal: nl liver, spleen, non-tender, soft Results Result Diagram: 02/23/17 0730 02/23/17 0730 Results 24 hrs Laboratory Tests Test 02/22/17 17:50 02/22/17 20:57 02/23/17 01:16 02/23/17 04:44 Bedside Glucose 107 106 95 110 Test 02/23/17 07:30 02/23/17 09:28 02/23/17 12:20 White Blood Count 10.9 H Red Blood Count 3.07 L Hemoglobin 8.7 L Hematocrit 27.2 L Mean Corpuscular Volume 88.6 Mean Corpuscular Hemoglobin 28.3 L Mean Corpuscular Hemoglobin Concent 32.0 Red Cell Distribution Width 14.4 Platelet Count 215 Mean Platelet Volume 10.0 Neutrophils % 81.2 H Lymphocytes % 10.0 L Monocytes % 6.7 Eosinophils % 0.6 Basophils % 0.2 Nucleated Red Blood Cells % 0.0 Neutrophils # 8.8 H Lymphocytes # 1.1 Monocytes # 0.7 Eosinophils # 0.1 Basophils # 0.0 Nucleated Red Blood Cells # 0.0 Sodium Level 132 L Potassium Level 4.5 Chloride Level 96 L Carbon Dioxide Level 31 Anion Gap 10 Blood Urea Nitrogen 90 H Creatinine 1.85 H Glucose Level 90 # Calcium Level 8.2 L Bedside Glucose 114 144 Medications Medications Current Medications Ondansetron HCl (Zofran Inj) 4 mg Q6H PRN IV NAUSEA AND/OR VOMITING Last administered on 02/23/17 12:49; Admin Dose 4 MG; Start 12/02/16 at 22:30 Miscellaneous Information 1 ea NOTE XX ; Start 12/02/16 at 23:00 Glucose (Glutose) 15 gm Q15M PRN PO DECREASED GLUCOSE; Start 12/02/16 at 23:00 Glucose (Glutose) 22.5 gm Q15M PRN PO DECREASED GLUCOSE; Start 12/02/16 at 23: 00 Dextrose (D50w Syringe) 25 ml Q15M PRN IV DECREASED GLUCOSE Last administered on 01/26/17 05:21; Admin Dose 25 ML; Start 12/02/16 at 23:00 Dextrose (D50w Syringe) 50 ml Q15M PRN IV DECREASED GLUCOSE Last administered on 01/23/17 04:58; Admin Dose 50 ML; Start 12/02/16 at 23:00 Glucagon (Glucagen) 1 mg Q15M PRN IM DECREASED GLUCOSE; Start 12/02/16 at 23:00 Glucose (Glutose) 15 gm Q15M PRN BUCCAL DECREASED GLUCOSE; Start 12/02/16 at 23 :00 Acetaminophen (Tylenol Supp) 650 mg Q6H PRN [place] ELEVATED TEMPERATURE Last administered on 01/13/17 20:32; Admin Dose 650 MG; Start 12/09/16 at 17:00 Hydralazine HCl (Apresoline) 10 mg Q6H PRN IV SBP>150mm hg Last administered on 12/19/16 08:50; Admin Dose 10 MG; Start 12/11/16 at 10:30 Morphine Sulfate (morphine) 2 mg Q2H PRN IV PAIN LEVEL 4-7; Start 12/13/16 at 10 :00 Collagenase (Santyl) 1 applic DAILY TOP Last administered on 02/23/17 09:35; Admin Dose 1 APPLIC; Start 01/04/17 at 09:00 Metoprolol Tartrate (Lopressor) 5 mg Q4 PRN IV FOR H.R>110; Start 01/12/17 at 17:30 Acetaminophen (Tylenol Liquid) 650 mg Q6H PRN NGT PAIN AND OR ELEVATED TEMP Last administered on 02/03/17 17:37; Admin Dose 650 MG; Start 01/13/17 at 23:30 Acetaminophen/ Hydrocodone Bitart ([place] (5/325)) 1 tab Q6H PRN NGT PAIN LEVEL 4-7; Start 01/13/17 at 23:30 Levetiracetam (Keppra Liquid) 1,000 mg DAILY NGT Last administered on 09:34; Admin Dose 1,000 MG; Start 01/14/17 at 09:00 Meclizine HCl (Antivert) 25 mg TID PRN NGT dizziness; Start 01/13/17 at 20:00 Zolpidem Tartrate (Ambien) 5 mg HS PRN NGT INSOMNIA; Start 01/13/17 at 20:00 Metoprolol Tartrate (Lopressor) 12.5 mg BID NGT Last administered on 02/23/17 09:32; Admin Dose 12.5 MG; Start 01/24/17 at 21:00 Nystatin (Nystatin Susp) 5 ml Q6 PO Last administered on 02/23/17 12:49; Admin Dose 5 ML; Start 01/31/17 at 12:00 Lansoprazole (Prevacid) 30 mg DAILY@06 GTB Last administered on 02/23/17 05:09 ; Admin Dose 30 MG; Start 02/09/17 at 06:00 Zinc Sulfate (Zinc Sulfate) 220 mg DAILY GTB Last administered on 02/23/17 09: 33; Admin Dose 220 MG; Start 02/14/17 at 15:00 Multivitamins (Multivitamin) 30 ml DAILY GTB Last administered on 02/23/17 09: 33; Admin Dose 30 ML; Start 02/14/17 at 16:30 Docusate Sodium (Colace Liquid Cup) 100 mg BID GTB Last administered on 09:33; Admin Dose 100 MG; Start 02/14/17 at 21:00 Apixaban (Eliquis) 2.5 mg BID GTB Last administered on 02/23/17 09:33; Admin Dose 2.5 MG; Start 02/14/17 at 21:00 Amiodarone HCl (Cordarone) 200 mg DAILY GTB Last administered on 02/23/17 09: 32; Admin Dose 200 MG; Start 02/19/17 at 09:00 Ascorbic Acid (Vitamin C) 500 mg DAILY GTB Last administered on 02/23/17 09:33 ; Admin Dose 500 MG; Start 02/22/17 at 09:00 Insulin Glargine (Lantus) 56 unit DAILY@20 SC Last administered on 02/22/17 21 :08; Admin Dose 56 UNIT; Start 02/22/17 at 20:00 Insulin Aspart NOVOLOG *MODERATE* ALGORI... Q4 SC Last administered on 13:02; Admin Dose 2 UNIT; Start 02/23/17 at 05:00 Sodium Chloride (NS) 1,000 ml @ 40 mls/hr Q24H IV Last administered on 14:30; Admin Dose 40 MLS/HR; Start 02/23/17 at 14:30 Metoclopramide HCl (Reglan) 5 mg Q6 IV ; Start 7/12/17 at 18:00 NIKHIL RAM MD Feb 23, 2017 17:50
--- NOTE | 2017-02-23 18:19 | RADRPT ---
PROCEDURE: XR Chest. CLINICAL INDICATION: Shortness of breath. TECHNIQUE: Single frontal view. COMPARISON: 02/12/2017. FINDINGS: The tracheostomy tube and right internal jugular vein tunneled dialysis catheter are in satisfactory position. There is right basilar atelectasis or pneumonia, unchanged. The lungs are otherwise black ar. Calcification is present in the aorta consistent with atherosclerosis. The heart size is normal. There is no pleural effusion. There is no pneumothorax. IMPRESSION: 1. No change from 02/12/2017. RPTAT: QQ .Bruce Zurita MD, MD Date Time Electronically viewed and signed by .Bruce Zurita MD, MD on 02/23/2017 18:19 .R/
[2017-02-23] MEDS: METOCLOPRAMIDE 10 MG INJ IV SCH (18:29)
[2017-02-23 18:50] LABS: ALBUMIN 3.2 g/dl (3.3-4.9); ALBUMIN/GLOBULIN RATIO 1.03; BILIRUBIN,INDIRECT 0.2 mg/dl (0-1.1); BILIRUBIN,TOTAL 0.2 mg/dl (0.2-1.3); CALCIUM 7.9 mg/dl (8.4-10.2); CREATININE 1.07 mg/dl (0.61-1.24); POTASSIUM 3.9 mmol/L (3.5-5.1); TOTAL PROTEIN 6.3 g/dl (6.1-8.1)
[2017-02-23] MEDS: INSULIN GLARGINE [LANtus] 3 ML PEN SC SCH (20:00)
[2017-02-23] MEDS ORDERED: INSULIN GLARGINE [LANtus] 3 ML PEN SC ONE (21:00)
[2017-02-24] VITALS (24 sets, daily range): BP systolic 97–118; BP diastolic 46–56; PULSE 23–77; RESP 16–21
[2017-02-24] MEDS: INSULIN ASPART [NOVOLOG] 3 ML PEN SC SCH ×6 (01:00→21:00)
[2017-02-24] MEDS: METOCLOPRAMIDE 10 MG INJ IV SCH ×4 (01:06→17:28)
[2017-02-24] MEDS: NYSTATIN SUSP 5 ML CUP PO SCH ×4 (01:06→17:28)
[2017-02-24] MEDS: ALBUTEROL 18 GM INHALER INH SCH ×4 (01:47→19:09)
[2017-02-24] MEDS: LANSOPRAZOLE 30 MG CAP GTB SCH (05:39)
[2017-02-24] MEDS: DEXTROSE 50% 50 ML SYRINGE IV PRN (05:56)
[2017-02-24 07:12] LABS: ADD SCAN DIFF NO
[2017-02-24 07:16] LABS: BASOPHILS % 0.2 % (0.0-2.0); EOSINOPHILS % 0.4 % (0.0-7.0); HEMATOCRIT 26.3 % (42.0-52.0); HEMOGLOBIN 8.2 g/dl (14.0-18.0); LYMPHOCYTES # 0.8 10^3/ul (0.8-2.9); LYMPHOCYTES % 7.4 % (15.0-51.0); MEAN CORPUSCULAR HEMOGLOBIN 27.9 pg (29.0-33.0); MEAN CORPUSCULAR HGB CONC 31.2 g/dl (32.0-37.0); MEAN CORPUSCULAR VOLUME 89.5 fl (82.0-101.0); MEAN PLATELET VOLUME 9.9 fl (7.4-10.4); MONOCYTE # 0.8 10^3/ul (0.3-0.9); MONOCYTES % 7.8 % (0.0-11.0); NEUTROPHIL # 8.8 10^3/ul (1.6-7.5); NEUTROPHILS % 81.9 % (39.0-77.0); PLATELET COUNT 190 10^3/UL (140-415); RED BLOOD COUNT 2.94 10^6/ul (4.70-6.10); RED CELL DISTRIBUTION WIDTH 14.4 % (11.5-14.5); WHITE BLOOD COUNT 10.8 10^3/ul (4.8-10.8)
[2017-02-24 07:39] LABS: BILIRUBIN,INDIRECT 0.3 mg/dl (0-1.1); BILIRUBIN,TOTAL 0.3 mg/dl (0.2-1.3)
[2017-02-24 07:40] LABS: CALCIUM 8.2 mg/dl (8.4-10.2); CREATININE 1.31 mg/dl (0.61-1.24); POTASSIUM 3.8 mmol/L (3.5-5.1)
[2017-02-24] MEDS: DOCUSATE SODIUM 10 MG/ML (10ML CUP) GTB SCH ×2 (09:00→21:21)
[2017-02-24] MEDS: COLLAGENASE 30 GM TUBE TOP SCH (09:00)
[2017-02-24] MEDS: ASCORBIC ACID 500 MG TAB GTB SCH (09:00)
[2017-02-24] MEDS: METOPROLOL 25 MG TAB NGT SCH (10:54)
[2017-02-24] MEDS: AMIODARONE 200 MG TAB GTB SCH (10:55)
[2017-02-24] MEDS: APIXABAN 5 MG TABLET GTB SCH ×2 (10:55→21:21)
[2017-02-24] MEDS: MULTIVITAMINS 30 ML CUP GTB SCH (10:55)
[2017-02-24] MEDS: ZINC SULFATE 220 MG CAP GTB SCH (10:55)
[2017-02-24] MEDS: LEVETIRACETAM (100 MG/ML) 5ML CUP NGT SCH (13:10)
[2017-02-24] MEDS: SOD CHLORIDE 0.9% 1,000 ML IV SCH (13:15)
--- NOTE | 2017-02-24 13:16 | CONS ---
Date/Time of Note Date/Time of Note DATE: 02/24/17 TIME: 13:12 Assessment/Plan Assessment/Plan Chief Complaint/Hosp Course IMPRESSION: 1. Atrial fibrillation-Having episodes of PAF with reasonable rate control. Currently remains in SR. Had pause approximatley 4 seconds this am ? if was during suctioning 2. Hypotension-overall improved and stable and tolerating low dose BB 3. Abnormal electrocardiogram with inferolateral T-wave inversions. 4. Respiratory failure-s/p trach placement 5. Nonhealing toe ulceration-vascular following 6. Peripheral arterial disease by arterial ultrasound of the lower extremities this admission. 7. Diabetes mellitus. 8. Fevers. 9. Positive troponin-downtrended 10.Bradycardia-improved/stable 11.-severe by echo 12.Cardiomyopathy-EF 40-45% by echo/36% by stress with no ischemia but positive scar. EF <30% by echo post arrest 13.Encephalopathy-anoxic 14. s/p cardiopulmonary arrest 01/08 15. Pre-op-for debridemnt of decubitis ulcer- Patient at this time has no definite cardiac contraindication to proceeding to OR for debridement but is at high risk for CV complications due to severe and cardiomyopathy 16. Hyponatremia Recc: -Tele -serial ecg -HD for volume removal as tolerated ongoing today -Continue eliquis at this time and follow for recurrent bleeding -Continue PO amio in attempt to maintain SR, daily -Will hold on afterload reduction given severe and thus fixed afterload at valve orifice -Hold BB and follow for recurrent pause -Possible pnding debridement Problems: Consultation Date/Type/Reason Admit Date/Time Dec 02, 2016 at 21:01 Initial Consult Date 12/03/16 Type of Consultation: cardiology Reason for Consultation /cardiomyopathy/AF Referring Provider: VIET PARKER MD Exam/Review of Systems Vital Signs Vitals Vital Signs Date Time Temp Pulse Resp B/P Pulse Ox O2 Delivery O2 Flow Rate FiO2 02/24/17 12:52 77 02/24/17 11:50 98.1 19 108/47 97 02/24/17 07:44 30 Intake and Output 02/23/17 02/23/17 02/24/17 15:00 23:00 07:00 Intake Total 500 ml 565 ml Output Total 2000 ml 600 ml Balance -1500 ml -35 ml Exam Review of Systems: CONSTITUTIONAL: No fevers, chills. PULMONARY: trached CARDIOVASCULAR: No obvious chest pain/palpitations GASTROINTESTINAL: No nausea/vomiting. GENITOURINARY: No hematuria/dysuria. MUSCULOSKELETAL: No obvious myagias/arthalgias. PSYCHIATRIC: No documented depression. NEUROLOGIC: lethargic/encephalopathic Constitutional: other (encephalopahty) Psych: no complaints ENMT: mucosa pink and moist Neck: jvd (9 cm water), other (trached), supple Respiratory: diminished breath sounds (decreased BS@bases/B) Cardiovascular: regular rate and rhythm Gastrointestinal: non-tender, soft Musculoskeletal: muscle tone (normal) Extremities: edema (none) Neurological: lethargic Results Result Diagram: 02/24/17 0649 02/24/17 0646 Results 24 hrs Laboratory Tests Test 02/23/17 17:50 02/23/17 18:25 02/23/17 20:41 02/24/17 01:04 Sodium Level 133 L Potassium Level 3.9 Chloride Level 95 L Carbon Dioxide Level 33 H Anion Gap 9 Blood Urea Nitrogen 46 #H Creatinine 1.07 Glucose Level 89 Calcium Level 7.9 L Total Bilirubin 0.2 Direct Bilirubin 0.00 Indirect Bilirubin 0.2 Aspartate Amino Transf (AST/SGOT) 28 Alanine Aminotransferase (ALT/SGPT) 28 Alkaline Phosphatase 105 Total Protein 6.3 Albumin 3.2 L Globulin 3.10 Albumin/Globulin Ratio 1.03 Hepatitis B Surface Antibody NEGATIVE Hepatitis B Core Total Antibody NEGATIVE Bedside Glucose 95 83 76 Test 02/24/17 05:50 02/24/17 06:14 02/24/17 06:29 02/24/17 06:46 Bedside Glucose 63 L 126 109 Sodium Level 130 L Potassium Level 3.8 Chloride Level 94 L Carbon Dioxide Level 32 H Anion Gap 8 Blood Urea Nitrogen 55 H Creatinine 1.31 H Glucose Level 100 Calcium Level 8.2 L Total Bilirubin 0.3 Direct Bilirubin 0.00 Indirect Bilirubin 0.3 Aspartate Amino Transf (AST/SGOT) 28 Alanine Aminotransferase (ALT/SGPT) 27 Alkaline Phosphatase 86 Total Protein 6.0 L Albumin 3.0 L Test 02/24/17 06:49 02/24/17 09:04 02/24/17 12:57 White Blood Count 10.8 Red Blood Count 2.94 L Hemoglobin 8.2 L Hematocrit 26.3 L Mean Corpuscular Volume 89.5 Mean Corpuscular Hemoglobin 27.9 L Mean Corpuscular Hemoglobin Concent 31.2 L Red Cell Distribution Width 14.4 Platelet Count 190 Mean Platelet Volume 9.9 Neutrophils % 81.9 H Lymphocytes % 7.4 L Monocytes % 7.8 Eosinophils % 0.4 Basophils % 0.2 Nucleated Red Blood Cells % 0.0 Neutrophils # 8.8 H Lymphocytes # 0.8 Monocytes # 0.8 Eosinophils # 0.0 Basophils # 0.0 Nucleated Red Blood Cells # 0.0 Hepatitis B Surface Antigen NEGATIVE Bedside Glucose 84 91 Medications Medications Current Medications Ondansetron HCl (Zofran Inj) 4 mg Q6H PRN IV NAUSEA AND/OR VOMITING Last administered on 02/23/17 12:49; Admin Dose 4 MG; Start 12/02/16 at 22:30 Miscellaneous Information 1 ea NOTE XX ; Start 12/02/16 at 23:00 Glucose (Glutose) 15 gm Q15M PRN PO DECREASED GLUCOSE; Start 12/02/16 at 23:00 Glucose (Glutose) 22.5 gm Q15M PRN PO DECREASED GLUCOSE; Start 12/02/16 at 23: 00 Dextrose (D50w Syringe) 25 ml Q15M PRN IV DECREASED GLUCOSE Last administered on 02/24/17 05:56; Admin Dose 25 ML; Start 12/02/16 at 23:00 Dextrose (D50w Syringe) 50 ml Q15M PRN IV DECREASED GLUCOSE Last administered on 01/23/17 04:58; Admin Dose 50 ML; Start 12/02/16 at 23:00 Glucagon (Glucagen) 1 mg Q15M PRN IM DECREASED GLUCOSE; Start 12/02/16 at 23:00 Glucose (Glutose) 15 gm Q15M PRN BUCCAL DECREASED GLUCOSE; Start 12/02/16 at 23 :00 Acetaminophen (Tylenol Supp) 650 mg Q6H PRN [place] ELEVATED TEMPERATURE Last administered on 01/13/17 20:32; Admin Dose 650 MG; Start 12/09/16 at 17:00 Hydralazine HCl (Apresoline) 10 mg Q6H PRN IV SBP>150mm hg Last administered on 12/19/16 08:50; Admin Dose 10 MG; Start 12/11/16 at 10:30 Morphine Sulfate (morphine) 2 mg Q2H PRN IV PAIN LEVEL 4-7; Start 12/13/16 at 10 :00 Collagenase (Santyl) 1 applic DAILY TOP Last administered on 02/24/17 09:00; Admin Dose 1 APPLIC; Start 01/04/17 at 09:00 Metoprolol Tartrate (Lopressor) 5 mg Q4 PRN IV FOR H.R>110; Start 01/12/17 at 17:30 Acetaminophen (Tylenol Liquid) 650 mg Q6H PRN NGT PAIN AND OR ELEVATED TEMP Last administered on 02/03/17 17:37; Admin Dose 650 MG; Start 01/13/17 at 23:30 Acetaminophen/ Hydrocodone Bitart ([place] (5/325)) 1 tab Q6H PRN NGT PAIN LEVEL 4-7; Start 01/13/17 at 23:30 Levetiracetam (Keppra Liquid) 1,000 mg DAILY NGT Last administered on 13:10; Admin Dose 1,000 MG; Start 01/14/17 at 09:00 Meclizine HCl (Antivert) 25 mg TID PRN NGT dizziness; Start 01/13/17 at 20:00 Zolpidem Tartrate (Ambien) 5 mg HS PRN NGT INSOMNIA; Start 01/13/17 at 20:00 Metoprolol Tartrate (Lopressor) 12.5 mg BID NGT Last administered on 02/24/17 10:54; Admin Dose 12.5 MG; Start 01/24/17 at 21:00 Nystatin (Nystatin Susp) 5 ml Q6 PO Last administered on 02/24/17 13:06; Admin Dose 5 ML; Start 01/31/17 at 12:00 Lansoprazole (Prevacid) 30 mg DAILY@06 GTB Last administered on 02/24/17 05:39 ; Admin Dose 30 MG; Start 02/09/17 at 06:00 Zinc Sulfate (Zinc Sulfate) 220 mg DAILY GTB Last administered on 02/24/17 10: 55; Admin Dose 220 MG; Start 02/14/17 at 15:00 Multivitamins (Multivitamin) 30 ml DAILY GTB Last administered on 02/24/17 10: 55; Admin Dose 30 ML; Start 02/14/17 at 16:30 Docusate Sodium (Colace Liquid Cup) 100 mg BID GTB Last administered on 09:00; Admin Dose 100 MG; Start 02/14/17 at 21:00 Apixaban (Eliquis) 2.5 mg BID GTB Last administered on 02/24/17 10:55; Admin Dose 2.5 MG; Start 02/14/17 at 21:00 Amiodarone HCl (Cordarone) 200 mg DAILY GTB Last administered on 02/24/17 10: 55; Admin Dose 200 MG; Start 02/19/17 at 09:00 Ascorbic Acid (Vitamin C) 500 mg DAILY GTB Last administered on 02/24/17 09:00 ; Admin Dose 500 MG; Start 02/22/17 at 09:00 Insulin Glargine (Lantus) 56 unit DAILY@20 SC Last administered on 02/22/17 21 :08; Admin Dose 56 UNIT; Start 02/22/17 at 20:00 Insulin Aspart NOVOLOG *MODERATE* ALGORI... Q4 SC Last administered on 13:02; Admin Dose 2 UNIT; Start 02/23/17 at 05:00 Sodium Chloride (NS) 1,000 ml @ 40 mls/hr Q24H IV Last administered on 14:30; Admin Dose 40 MLS/HR; Start 02/23/17 at 14:30 Metoclopramide HCl (Reglan) 5 mg Q6 IV Last administered on 02/24/17 13:07; Admin Dose 5 MG; Start 02/23/17 at 18:00 VICENTE LESLIE 13, 2017 13:16
--- NOTE | 2017-02-24 15:43 | PN ---
Date/Time of Note Date/Time of Note DATE: 02/24/17 TIME: 15:35 Assessment/Plan VTE Prophylaxis VTE Prophylaxis Intervention: other Lines/Catheters IV C[facility]ter Type (from [facility] Saline Lock Urinary Cath still in place: No Assessment/Plan Assessment/Plan - Sacral decubitus ulcer - per Dr. Ureña in surgical consultation for possible debridement. awaiting family decision - Dr Mango child for surgery but as a high risk patient - Continue multivitamins, zinc sulfate, offloading. - Possible recurrent sepsis, resolving. Continue antibiotics per ID. Dr Dallas group is following infection disease consultation. - Dysphagia. S/p G-tube by Dr. Smith. Continue G-tube feeding, monitor residual, aspiration precautions. - Anemia of blood loss. Continue to monitor H&H, transfuse as needed. - Status post cardiopulmonary arrest on 12/09/2016 and 01/08/2017. Continue ventilatory support. - Anoxic encephalopathy. Continue Keppra. - Status post tracheostomy on 01/23/2017. Continue tracheostomy care. - End-stage renal disease. Continue hemodialysis per nephrology. - Paroxysmal atrial fibrillation. Continue Eliquis. - Diabetes mellitus type 2. Continue Lantus and NovoLog with sliding scale coverage with Accu-Cheks q. 4 hours. - Diabetic foot ulcer. Continue current wound care. - Osteomyelitis of the distal phalanx of the great left toe. Completed treatment for antibiotics. Continue sequential compression device for deep venous thrombosis prophylaxis and Protonix for peptic ulcer disease prophylaxis. Further recommendations based on clinical course. Plan of care discussed with Dr. Heredia. Subjective 24 Hr Interval Summary Free Text/Dictation episode of pause x 1 during suction per staff. cardiac clearance per Dr Mango child for surgery but at high risk. Dr Ureña was informed as well. dw staff at bed side- answered her Qs. Constitutional: requiring IVF, requiring O2 Exam/Review of Systems Vital Signs Vitals Vital Signs Date Time Temp Pulse Resp B/P Pulse Ox O2 Delivery O2 Flow Rate FiO2 02/24/17 12:52 77 02/24/17 11:50 98.1 19 108/47 97 02/24/17 07:44 30 Intake and Output 02/23/17 02/23/17 02/24/17 15:00 23:00 07:00 Intake Total 500 ml 565 ml Output Total 2000 ml 600 ml Balance -1500 ml -35 ml Exam Constitutional: non-verbal Respiratory: diminished breath sounds, other (trach intact) Cardiovascular: nl pulses, regular rate and rhythm Gastrointestinal: non-tender, other, soft Musculoskeletal: muscle weakness Extremities: normal pulses Neurological: unresponsive Results Result Diagram: 02/24/17 0649 02/24/17 0646 Results 24 hrs Laboratory Tests Test 02/23/17 17:50 02/23/17 18:25 02/23/17 20:41 02/24/17 01:04 Sodium Level 133 L Potassium Level 3.9 Chloride Level 95 L Carbon Dioxide Level 33 H Anion Gap 9 Blood Urea Nitrogen 46 #H Creatinine 1.07 Glucose Level 89 Calcium Level 7.9 L Total Bilirubin 0.2 Direct Bilirubin 0.00 Indirect Bilirubin 0.2 Aspartate Amino Transf (AST/SGOT) 28 Alanine Aminotransferase (ALT/SGPT) 28 Alkaline Phosphatase 105 Total Protein 6.3 Albumin 3.2 L Globulin 3.10 Albumin/Globulin Ratio 1.03 Hepatitis B Surface Antibody NEGATIVE Hepatitis B Core Total Antibody NEGATIVE Bedside Glucose 95 83 76 Test 02/24/17 05:50 02/24/17 06:14 02/24/17 06:29 02/24/17 06:46 Bedside Glucose 63 L 126 109 Sodium Level 130 L Potassium Level 3.8 Chloride Level 94 L Carbon Dioxide Level 32 H Anion Gap 8 Blood Urea Nitrogen 55 H Creatinine 1.31 H Glucose Level 100 Calcium Level 8.2 L Total Bilirubin 0.3 Direct Bilirubin 0.00 Indirect Bilirubin 0.3 Aspartate Amino Transf (AST/SGOT) 28 Alanine Aminotransferase (ALT/SGPT) 27 Alkaline Phosphatase 86 Total Protein 6.0 L Albumin 3.0 L Test 02/24/17 06:49 02/24/17 09:04 02/24/17 12:57 White Blood Count 10.8 Red Blood Count 2.94 L Hemoglobin 8.2 L Hematocrit 26.3 L Mean Corpuscular Volume 89.5 Mean Corpuscular Hemoglobin 27.9 L Mean Corpuscular Hemoglobin Concent 31.2 L Red Cell Distribution Width 14.4 Platelet Count 190 Mean Platelet Volume 9.9 Neutrophils % 81.9 H Lymphocytes % 7.4 L Monocytes % 7.8 Eosinophils % 0.4 Basophils % 0.2 Nucleated Red Blood Cells % 0.0 Neutrophils # 8.8 H Lymphocytes # 0.8 Monocytes # 0.8 Eosinophils # 0.0 Basophils # 0.0 Nucleated Red Blood Cells # 0.0 Hepatitis B Surface Antigen NEGATIVE Bedside Glucose 84 91 Medications Medications Current Medications Ondansetron HCl (Zofran Inj) 4 mg Q6H PRN IV NAUSEA AND/OR VOMITING Last administered on 02/23/17 12:49; Admin Dose 4 MG; Start 12/02/16 at 22:30 Miscellaneous Information 1 ea NOTE XX ; Start 12/02/16 at 23:00 Glucose (Glutose) 15 gm Q15M PRN PO DECREASED GLUCOSE; Start 12/02/16 at 23:00 Glucose (Glutose) 22.5 gm Q15M PRN PO DECREASED GLUCOSE; Start 12/02/16 at 23: 00 Dextrose (D50w Syringe) 25 ml Q15M PRN IV DECREASED GLUCOSE Last administered on 02/24/17 05:56; Admin Dose 25 ML; Start 12/02/16 at 23:00 Dextrose (D50w Syringe) 50 ml Q15M PRN IV DECREASED GLUCOSE Last administered on 01/23/17 04:58; Admin Dose 50 ML; Start 12/02/16 at 23:00 Glucagon (Glucagen) 1 mg Q15M PRN IM DECREASED GLUCOSE; Start 12/02/16 at 23:00 Glucose (Glutose) 15 gm Q15M PRN BUCCAL DECREASED GLUCOSE; Start 12/02/16 at 23 :00 Acetaminophen (Tylenol Supp) 650 mg Q6H PRN [place] ELEVATED TEMPERATURE Last administered on 01/13/17 20:32; Admin Dose 650 MG; Start 12/09/16 at 17:00 Hydralazine HCl (Apresoline) 10 mg Q6H PRN IV SBP>150mm hg Last administered on 12/19/16 08:50; Admin Dose 10 MG; Start 12/11/16 at 10:30 Morphine Sulfate (morphine) 2 mg Q2H PRN IV PAIN LEVEL 4-7; Start 12/13/16 at 10 :00 Collagenase (Santyl) 1 applic DAILY TOP Last administered on 02/24/17 09:00; Admin Dose 1 APPLIC; Start 01/04/17 at 09:00 Metoprolol Tartrate (Lopressor) 5 mg Q4 PRN IV FOR H.R>110; Start 01/12/17 at 17:30 Acetaminophen (Tylenol Liquid) 650 mg Q6H PRN NGT PAIN AND [place] ELEVATED TEMP Last administered on 02/03/17 17:37; Admin Dose 650 MG; Start 01/13/17 at 23:30 Acetaminophen/ Hydrocodone Bitart ([employer] (5/325)) 1 tab Q6H PRN NGT PAIN LEVEL 4-7; Start 01/13/17 at 23:30 Levetiracetam (Keppra Liquid) 1,000 mg DAILY NGT Last administered on 13:10; Admin Dose 1,000 MG; Start 01/14/17 at 09:00 Meclizine HCl (Antivert) 25 mg TID PRN NGT dizziness; Start 01/13/17 at 20:00 Zolpidem Tartrate (Ambien) 5 mg HS PRN NGT INSOMNIA; Start 01/13/17 at 20:00 Metoprolol Tartrate (Lopressor) 12.5 mg BID NGT Last administered on 02/24/17 10:54; Admin Dose 12.5 MG; Start 01/24/17 at 21:00; Status Future Hold Nystatin (Nystatin Susp) 5 ml Q6 PO Last administered on 02/24/17 13:06; Admin Dose 5 ML; Start 01/31/17 at 12:00 Lansoprazole (Prevacid) 30 mg DAILY@06 GTB Last administered on 02/24/17 05:39 ; Admin Dose 30 MG; Start 02/09/17 at 06:00 Zinc Sulfate (Zinc Sulfate) 220 mg DAILY GTB Last administered on 02/24/17 10: 55; Admin Dose 220 MG; Start 02/14/17 at 15:00 Multivitamins (Multivitamin) 30 ml DAILY GTB Last administered on 02/24/17 10: 55; Admin Dose 30 ML; Start 02/14/17 at 16:30 Docusate Sodium (Colace Liquid Cup) 100 mg BID GTB Last administered on 09:00; Admin Dose 100 MG; Start 02/14/17 at 21:00 Apixaban (Eliquis) 2.5 mg BID GTB Last administered on 02/24/17 10:55; Admin Dose 2.5 MG; Start 02/14/17 at 21:00 Amiodarone HCl (Cordarone) 200 mg DAILY GTB Last administered on 02/24/17 10: 55; Admin Dose 200 MG; Start 02/19/17 at 09:00 Ascorbic Acid (Vitamin C) 500 mg DAILY GTB Last administered on 02/24/17 09:00 ; Admin Dose 500 MG; Start 02/22/17 at 09:00 Insulin Glargine (Lantus) 56 unit DAILY@20 SC Last administered on 02/22/17 21 :08; Admin Dose 56 UNIT; Start 02/22/17 at 20:00 Insulin Aspart NOVOLOG *MODERATE* ALGORI... Q4 SC Last administered on 13:02; Admin Dose 2 UNIT; Start 02/23/17 at 05:00 Sodium Chloride (NS) 1,000 ml @ 40 mls/hr Q24H IV Last administered on 13:15; Admin Dose 40 MLS/HR; Start 02/23/17 at 14:30 Metoclopramide HCl (Reglan) 5 mg Q6 IV Last administered on 02/24/17 13:07; Admin Dose 5 MG; Start 02/23/17 at 18:00 YULIANA SIMMONS Feb 24, 2017 15:42
--- NOTE | 2017-02-24 19:02 | CONS ---
Date/Time of Note Date/Time of Note DATE: 02/24/17 TIME: 19:02 Assessment/Plan Assessment/Plan Chief Complaint/Hosp Course -- recurrent cardiopulmonary arrest on 12/09/2016 and on 01/08/2017 possible recurrent sepsis due to pneumonia - recurrent cardiopulmonary arrest on 12/09/2016 and on 01/08/2017 - s/p sepsis due to possible tracheobronchitis/pneumonia - possible recurrent sepsis due to pneumonia - WBC downward trending - recurrent cardiopulmonary arrest on 12/09/2016 and on 01/08/2017 - s/p sepsis due to possible tracheobronchitis/pneumonia - recurrent pneumonia due to pseudomonas - s/p recurrent sepsis due to pneumonia +/- funguria - treated with cefepime, tobramycin, and caspofungin - s/p recurrent pneumonia due to pseudomonas - s/p sepsis due to possible tracheobronchitis/pneumonia - funguria - treated with caspofungin - thrush, refractory to nystatin - recurrent cardiopulmonary arrest on 12/09/2016 and on 01/08/2017 - hypoxic respiratory failure, intubated for the 2nd time on 12/12/2016; extubated 12/18/2016; re-intubated for the 3rd time 01/08/2017, s/p tracheostomy 06/2017 - bleeding from trach site - resolved - acute on chronic anemia due to acute blood loss, requiring blood transfusion - 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 Blood cultures from HD catheter on 12/13/2016 are negative to date. 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 MRI on 12/06/2016 and bone scan on showed early OM of the distal phalanx of the left great toe and left fourth proximal phalanx. superficial swab grew inna only. At present, no e/o persistent infection - recurrent pleural effusion - s/p right pleural effusion s/p thoracentesis with .9L removed on 12/16/2016; ( Note: there is no pleural fluid cx since orders were placed after Right thoracentesis, and Left thoracentesis was not performed on 12/17/16 d/t insufficient fluid) - ARANZA on CKD that progressed to ESRD and started on HD from 12/09/2016 - oliguria - improved - A fib -> PAF - small nonreversible perfusion abnormality in the inferoapical and inferior carver; EF 36% per Lexiscan 12/24/2016 - severe , EF 40-45% per TTE 12/17/16 - DM - Hgb A1c 8.7% - HTN associated with DM - acute encephalopathy with anoxic brain injury - unstageable decubitus ulcer of coccyx, no evidence of infection - dysphagia s/p G-tube placement 02/08/2017 NOTE: Pt completed 6 weeks (12/03/2016-01/15/2017) of antibiotics to treat early OM of the distal phalanx of the left great toe and left fourth proximal phalanx ; s/p pip/tazo 12/03/16-01/08/17; linezolid 01/08/17-01/20/17; caspofungin 01/12/17-01/21/17 and 02/04/17-02/17/17; tobramycin 02/04/2017- 02/15/17 for pseudomonas; cefepime (02/02/17-02/18/17). recommendations: - monitor closely off abx - continue nystatin for thrush - wound care of the coccyx and upper back Problems: Consultation Date/Type/Reason Admit Date/Time Dec 02, 2016 at 21:01 Type of Consultation: id Referring Provider: VIET PARKER MD Exam/Review of Systems Vital Signs Vitals Vital Signs Date Time Temp Pulse Resp B/P Pulse Ox O2 Delivery O2 Flow Rate FiO2 02/24/17 17:53 80 17 98 30 02/24/17 15:48 98.6 118/54 Intake and Output 02/23/17 02/23/17 02/24/17 15:00 23:00 07:00 Intake Total 500 ml 565 ml Output Total 2000 ml 600 ml Balance -1500 ml -35 ml Exam Constitutional: alert, oriented, well developed Psych: nl mood/affect, no complaints Head: atraumatic, normocephalic Eyes: EOMI, PERRL, nl conjunctiva, nl lids, nl sclera Neck: non-tender, supple Respiratory: clear to auscultation, normal air movement Cardiovascular: nl pulses, regular rate and rhythm, No S3, No S4, No bruits, No diastolic murmur, No edema, No gallop, No irregular rhythm, No jugular venous distention (JVD), No murmurs/extra sounds, No other, No rub, No systolic murmur Results Result Diagram: 02/24/17 0649 02/24/17 0646 Results 24 hrs Laboratory Tests Test 02/23/17 20:41 02/24/17 01:04 02/24/17 05:50 02/24/17 06:14 Bedside Glucose 83 76 63 L 126 Test 02/24/17 06:29 02/24/17 06:46 02/24/17 06:49 02/24/17 09:04 Bedside Glucose 109 84 Sodium Level 130 L Potassium Level 3.8 Chloride Level 94 L Carbon Dioxide Level 32 H Anion Gap 8 Blood Urea Nitrogen 55 H Creatinine 1.31 H Glucose Level 100 Calcium Level 8.2 L Total Bilirubin 0.3 Direct Bilirubin 0.00 Indirect Bilirubin 0.3 Aspartate Amino Transf (AST/SGOT) 28 Alanine Aminotransferase (ALT/SGPT) 27 Alkaline Phosphatase 86 Total Protein 6.0 L Albumin 3.0 L White Blood Count 10.8 Red Blood Count 2.94 L Hemoglobin 8.2 L Hematocrit 26.3 L Mean Corpuscular Volume 89.5 Mean Corpuscular Hemoglobin 27.9 L Mean Corpuscular Hemoglobin Concent 31.2 L Red Cell Distribution Width 14.4 Platelet Count 190 Mean Platelet Volume 9.9 Neutrophils % 81.9 H Lymphocytes % 7.4 L Monocytes % 7.8 Eosinophils % 0.4 Basophils % 0.2 Nucleated Red Blood Cells % 0.0 Neutrophils # 8.8 H Lymphocytes # 0.8 Monocytes # 0.8 Eosinophils # 0.0 Basophils # 0.0 Nucleated Red Blood Cells # 0.0 Hepatitis B Surface Antigen NEGATIVE Test 02/24/17 12:57 02/24/17 17:14 Bedside Glucose 91 81 Medications Medications Current Medications Ondansetron HCl (Zofran Inj) 4 mg Q6H PRN IV NAUSEA AND/OR VOMITING Last administered on 02/23/17t 12:49; Admin Dose 4 MG; Start 12/02/16 at 22:30 Miscellaneous Information 1 ea NOTE XX ; Start 12/02/16 at 23:00 Glucose (Glutose) 15 gm Q15M PRN PO DECREASED GLUCOSE; Start 12/02/16 at 23:00 Glucose (Glutose) 22.5 gm Q15M PRN PO DECREASED GLUCOSE; Start 12/02/16 at 23: 00 Dextrose (D50w Syringe) 25 ml Q15M PRN IV DECREASED GLUCOSE Last administered on 02/24/17 05:56; Admin Dose 25 ML; Start 12/02/16 at 23:00 Dextrose (D50w Syringe) 50 ml Q15M PRN IV DECREASED GLUCOSE Last administered on 01/23/17 04:58; Admin Dose 50 ML; Start 12/02/16 at 23:00 Glucagon (Glucagen) 1 mg Q15M PRN IM DECREASED GLUCOSE; Start 12/02/16 at 23:00 Glucose (Glutose) 15 gm Q15M PRN BUCCAL DECREASED GLUCOSE; Start 12/02/16 at 23 :00 Acetaminophen (Tylenol Supp) 650 mg Q6H PRN [place] ELEVATED TEMPERATURE Last administered on 01/13/17 20:32; Admin Dose 650 MG; Start 12/09/16 at 17:00 Hydralazine HCl (Apresoline) 10 mg Q6H PRN IV SBP>150mm hg Last administered on 12/19/16 08:50; Admin Dose 10 MG; Start 12/11/16 at 10:30 Morphine Sulfate (morphine) 2 mg Q2H PRN IV PAIN LEVEL 4-7; Start 12/13/16 at 10 :00 Collagenase (Santyl) 1 applic DAILY TOP Last administered on 02/24/17 09:00; Admin Dose 1 APPLIC; Start 01/04/17 at 09:00 Metoprolol Tartrate (Lopressor) 5 mg Q4 PRN IV FOR H.R>110; Start 01/12/17 at 17:30 Acetaminophen (Tylenol Liquid) 650 mg Q6H PRN NGT PAIN AND OR ELEVATED TEMP Last administered on 02/03/17 17:37; Admin Dose 650 MG; Start 01/13/17 at 23:30 Acetaminophen/ Hydrocodone Bitart ([place] (5/325)) 1 tab Q6H PRN NGT PAIN LEVEL 4-7; Start 01/13/17 at 23:30 Levetiracetam (Keppra Liquid) 1,000 mg DAILY NGT Last administered on 13:10; Admin Dose 1,000 MG; Start 01/14/17 at 09:00 Meclizine HCl (Antivert) 25 mg TID PRN NGT dizziness; Start 01/13/17 at 20:00 Zolpidem Tartrate (Ambien) 5 mg HS PRN NGT INSOMNIA; Start 01/13/17 at 20:00 Metoprolol Tartrate (Lopressor) 12.5 mg BID NGT Last administered on 02/24/17 10:54; Admin Dose 12.5 MG; Start 01/24/17 at 21:00; Status Future Hold Nystatin (Nystatin Susp) 5 ml Q6 PO Last administered on 02/24/17 17:28; Admin Dose 5 ML; Start 01/31/17 at 12:00 Lansoprazole (Prevacid) 30 mg DAILY@06 GTB Last administered on 02/24/17 05:39 ; Admin Dose 30 MG; Start 02/09/17 at 06:00 Zinc Sulfate (Zinc Sulfate) 220 mg DAILY GTB Last administered on 02/24/17 10: 55; Admin Dose 220 MG; Start 02/14/17 at 15:00 Multivitamins (Multivitamin) 30 ml DAILY GTB Last administered on 02/24/17 10: 55; Admin Dose 30 ML; Start 02/14/17 at 16:30 Docusate Sodium (Colace Liquid Cup) 100 mg BID GTB Last administered on 09:00; Admin Dose 100 MG; Start 02/14/17 at 21:00 Apixaban (Eliquis) 2.5 mg BID GTB Last administered on 02/24/17 10:55; Admin Dose 2.5 MG; Start 02/14/17 at 21:00 Amiodarone HCl (Cordarone) 200 mg DAILY GTB Last administered on 02/24/17 10: 55; Admin Dose 200 MG; Start 02/19/17 at 09:00 Ascorbic Acid (Vitamin C) 500 mg DAILY GTB Last administered on 02/24/17 09:00 ; Admin Dose 500 MG; Start 02/22/17 at 09:00 Insulin Glargine (Lantus) 56 unit DAILY@20 SC Last administered on 02/22/17 21 :08; Admin Dose 56 UNIT; Start 02/22/17 at 20:00 Insulin Aspart NOVOLOG *MODERATE* ALGORI... Q4 SC Last administered on 13:02; Admin Dose 2 UNIT; Start 02/23/17 at 05:00 Sodium Chloride (NS) 1,000 ml @ 40 mls/hr Q24H IV Last administered on 13:15; Admin Dose 40 MLS/HR; Start 02/23/17 at 14:30 Metoclopramide HCl (Reglan) 5 mg Q6 IV Last administered on 02/24/17 17:28; Admin Dose 5 MG; Start 02/23/17 at 18:00 NIKHIL RAM MD Feb 24, 2017 19:02
[2017-02-24] MEDS: INSULIN GLARGINE [LANtus] 3 ML PEN SC SCH (21:27)
[2017-02-25] VITALS (31 sets, daily range): BP systolic 109–127; BP diastolic 47–65; PULSE 68–88; RESP 16–24
[2017-02-25] MEDS: ALBUTEROL 18 GM INHALER INH SCH ×4 (01:13→19:07)
[2017-02-25] MEDS: NYSTATIN SUSP 5 ML CUP PO SCH ×4 (01:35→17:50)
[2017-02-25] MEDS: METOCLOPRAMIDE 10 MG INJ IV SCH ×4 (01:35→17:51)
[2017-02-25] MEDS: INSULIN ASPART [NOVOLOG] 3 ML PEN SC SCH ×6 (01:37→21:42)
[2017-02-25] MEDS: LANSOPRAZOLE 30 MG CAP GTB SCH (06:08)
[2017-02-25 07:03] LABS: ADD SCAN DIFF NO
[2017-02-25 07:19] LABS: BASOPHILS % 0.2 % (0.0-2.0); EOSINOPHILS # 0.1 10^3/ul (0.0-0.5); EOSINOPHILS % 0.6 % (0.0-7.0); HEMATOCRIT 29.4 % (42.0-52.0); HEMOGLOBIN 9.2 g/dl (14.0-18.0); LYMPHOCYTES # 1.4 10^3/ul (0.8-2.9); LYMPHOCYTES % 13.6 % (15.0-51.0); MEAN CORPUSCULAR HEMOGLOBIN 28.5 pg (29.0-33.0); MEAN CORPUSCULAR HGB CONC 31.3 g/dl (32.0-37.0); MEAN PLATELET VOLUME 9.7 fl (7.4-10.4); MONOCYTES % 10.4 % (0.0-11.0); NEUTROPHIL # 7.3 10^3/ul (1.6-7.5); NEUTROPHILS % 73.1 % (39.0-77.0); PLATELET COUNT 188 10^3/UL (140-415); RED BLOOD COUNT 3.23 10^6/ul (4.70-6.10); RED CELL DISTRIBUTION WIDTH 14.2 % (11.5-14.5)
[2017-02-25 07:40] LABS: CREATININE 1.4 mg/dl (0.61-1.24); POTASSIUM 4.2 mmol/L (3.5-5.1)
[2017-02-25] MEDS: COLLAGENASE 30 GM TUBE TOP SCH (09:00)
--- NOTE | 2017-02-25 10:42 | CONS ---
Date/Time of Note Date/Time of Note DATE: 02/25/17 TIME: 10:42 Assessment/Plan Assessment/Plan Additional Assessment/Plan -S/p cardiopulmonary arrest on 12/09/2016 and on 01/08/2017 - 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 Blood cultures from HD catheter on 12/13/2016 are negative to date. 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 MRI on 12/06/2016 and bone scan on showed early OM of the distal phalanx of the left great toe and left fourth proximal phalanx. superficial swab grew inna only - s/p right pleural effusion s/p thoracentesis with .9L removed on 12/16/2016 - severe , EF 40-45% per TTE 12/17/16 - DM - Hgb A1c 8.7% - HTN associated with DM - sp Tracheostomy site bleeding Plan: HD today, will conitnue HD on MWF s/p Tracheostomy, on ventilator pt will need HD palcement at a unit where they can do a HD for pt with tracheostomy and PEG tube placemen t- case picker has been instructed to set up [facility] pt has severe , very labile BP sometimes with HD will continue to follow up for HD need Plan of`care Dw Dr Evelina Remy/staff/ patient family. Consultation Date/Type/Reason Admit Date/Time Dec 02, 2016 at 21:01 Initial Consult Date 12/08/16 Type of Consultation: id Referring Provider: VIET PARKER MD 24 HR Interval Summary Constitutional: requiring IVF, requiring O2 Exam/Review of Systems Vital Signs Vitals Vital Signs Date Time Temp Pulse Resp B/P Pulse Ox O2 Delivery O2 Flow Rate FiO2 02/25/17 09:53 75 17 99 30 02/25/17 07:29 99.5 112/57 Intake and Output 02/24/17 02/24/17 02/25/17 15:00 23:00 07:00 Intake Total 760 ml 1020 ml Output Total 300 ml 200 ml Balance 460 ml 820 ml Exam Constitutional: frail, non-verbal Respiratory: clear to auscultation, normal air movement Cardiovascular: nl pulses, regular rate and rhythm Gastrointestinal: non-tender, soft Musculoskeletal: other Extremities: normal pulses Neurological: unresponsive Results Result Diagram: 02/25/17 0617 02/25/17 0617 Results 24 hrs Laboratory Tests Test 02/24/17 12:57 02/24/17 17:14 02/24/17 21:20 02/25/17 01:34 Bedside Glucose 91 81 117 156 Test 02/25/17 06:07 02/25/17 06:17 02/25/17 09:11 Bedside Glucose 137 165 White Blood Count 10.0 Red Blood Count 3.23 L Hemoglobin 9.2 L Hematocrit 29.4 L Mean Corpuscular Volume 91.0 Mean Corpuscular Hemoglobin 28.5 L Mean Corpuscular Hemoglobin Concent 31.3 L Red Cell Distribution Width 14.2 Platelet Count 188 Mean Platelet Volume 9.7 Neutrophils % 73.1 Lymphocytes % 13.6 L Monocytes % 10.4 Eosinophils % 0.6 Basophils % 0.2 Nucleated Red Blood Cells % 0.0 Neutrophils # 7.3 Lymphocytes # 1.4 Monocytes # 1.0 H Eosinophils # 0.1 Basophils # 0.0 Nucleated Red Blood Cells # 0.0 Sodium Level 134 L Potassium Level 4.2 Chloride Level 97 Carbon Dioxide Level 28 Anion Gap 13 Blood Urea Nitrogen 65 H Creatinine 1.40 H Glucose Level 146 # Calcium Level 8.0 L Medications Medications Current Medications Ondansetron HCl (Zofran Inj) 4 mg Q6H PRN IV NAUSEA AND/OR VOMITING Last administered on 02/23/17t 12:49; Admin Dose 4 MG; Start 12/02/16 at 22:30 Miscellaneous Information 1 ea NOTE XX ; Start 12/02/16 at 23:00 Glucose (Glutose) 15 gm Q15M PRN PO DECREASED GLUCOSE; Start 12/02/16 at 23:00 Glucose (Glutose) 22.5 gm Q15M PRN PO DECREASED GLUCOSE; Start 12/02/16 at 23: 00 Dextrose (D50w Syringe) 25 ml Q15M PRN IV DECREASED GLUCOSE Last administered on 02/24/17 05:56; Admin Dose 25 ML; Start 12/02/16 at 23:00 Dextrose (D50w Syringe) 50 ml Q15M PRN IV DECREASED GLUCOSE Last administered on 01/23/17 04:58; Admin Dose 50 ML; Start 12/02/16 at 23:00 Glucagon (Glucagen) 1 mg Q15M PRN IM DECREASED GLUCOSE; Start 12/02/16 at 23:00 Glucose (Glutose) 15 gm Q15M PRN BUCCAL DECREASED GLUCOSE; Start 12/02/16 at 23 :00 Acetaminophen (Tylenol Supp) 650 mg Q6H PRN [place] ELEVATED TEMPERATURE Last administered on 01/13/17 20:32; Admin Dose 650 MG; Start 12/09/16 at 17:00 Hydralazine HCl (Apresoline) 10 mg Q6H PRN IV SBP>150mm hg Last administered on 12/19/16 08:50; Admin Dose 10 MG; Start 12/11/16 at 10:30 Morphine Sulfate (morphine) 2 mg Q2H PRN IV PAIN LEVEL 4-7; Start 12/13/16 at 10 :00 Collagenase (Santyl) 1 applic DAILY TOP Last administered on 02/24/17 09:00; Admin Dose 1 APPLIC; Start 01/04/17 at 09:00 Metoprolol Tartrate (Lopressor) 5 mg Q4 PRN IV FOR H.R>110; Start 01/12/17 at 17:30 Acetaminophen (Tylenol Liquid) 650 mg Q6H PRN NGT PAIN AND OR ELEVATED TEMP Last administered on 02/03/17 17:37; Admin Dose 650 MG; Start 01/13/17 at 23:30 Acetaminophen/ Hydrocodone Bitart ([place] (5/325)) 1 tab Q6H PRN NGT PAIN LEVEL 4-7; Start 01/13/17 at 23:30 Levetiracetam (Keppra Liquid) 1,000 mg DAILY NGT Last administered on 13:10; Admin Dose 1,000 MG; Start 01/14/17 at 09:00 Meclizine HCl (Antivert) 25 mg TID PRN NGT dizziness; Start 01/13/17 at 20:00 Zolpidem Tartrate (Ambien) 5 mg HS PRN NGT INSOMNIA; Start 01/13/17 at 20:00 Metoprolol Tartrate (Lopressor) 12.5 mg BID NGT Last administered on 02/24/17 10:54; Admin Dose 12.5 MG; Start 01/24/17 at 21:00; Status Future Hold Nystatin (Nystatin Susp) 5 ml Q6 PO Last administered on 02/25/17 06:08; Admin Dose 5 ML; Start 01/31/17 at 12:00 Lansoprazole (Prevacid) 30 mg DAILY@06 GTB Last administered on 02/25/17 06:08 ; Admin Dose 30 MG; Start 02/09/17 at 06:00 Zinc Sulfate (Zinc Sulfate) 220 mg DAILY GTB Last administered on 02/24/17 10: 55; Admin Dose 220 MG; Start 02/14/17 at 15:00 Multivitamins (Multivitamin) 30 ml DAILY GTB Last administered on 02/24/17 10: 55; Admin Dose 30 ML; Start 02/14/17 at 16:30 Docusate Sodium (Colace Liquid Cup) 100 mg BID GTB Last administered on 21:21; Admin Dose 100 MG; Start 02/14/17 at 21:00 Apixaban (Eliquis) 2.5 mg BID GTB Last administered on 02/24/17 21:21; Admin Dose 2.5 MG; Start 02/14/17 at 21:00 Amiodarone HCl (Cordarone) 200 mg DAILY GTB Last administered on 02/24/17 10: 55; Admin Dose 200 MG; Start 02/19/17 at 09:00 Ascorbic Acid (Vitamin C) 500 mg DAILY GTB Last administered on 02/24/17 09:00 ; Admin Dose 500 MG; Start 02/22/17 at 09:00 Insulin Glargine (Lantus) 56 unit DAILY@20 SC Last administered on 02/24/17 21 :27; Admin Dose 56 UNIT; Start 02/22/17 at 20:00 Insulin Aspart NOVOLOG *MODERATE* ALGORI... Q4 SC Last administered on 01:37; Admin Dose 2 UNIT; Start 02/23/17 at 05:00 Sodium Chloride (NS) 1,000 ml @ 40 mls/hr Q24H IV Last administered on 13:15; Admin Dose 40 MLS/HR; Start 02/23/17 at 14:30 Metoclopramide HCl (Reglan) 5 mg Q6 IV Last administered on 02/25/17 06:08; Admin Dose 5 MG; Start 02/23/17 at 18:00 YULIANA SIMMONS Feb 25, 2017 10:42
[2017-02-25] MEDS: LEVETIRACETAM (100 MG/ML) 5ML CUP NGT SCH (12:46)
[2017-02-25] MEDS: AMIODARONE 200 MG TAB GTB SCH (12:47)
[2017-02-25] MEDS: MULTIVITAMINS 30 ML CUP GTB SCH (12:47)
[2017-02-25] MEDS: APIXABAN 5 MG TABLET GTB SCH ×2 (12:47→21:37)
[2017-02-25] MEDS: ZINC SULFATE 220 MG CAP GTB SCH (12:47)
[2017-02-25] MEDS: DOCUSATE SODIUM 10 MG/ML (10ML CUP) GTB SCH ×2 (12:48→21:37)
[2017-02-25] MEDS: ASCORBIC ACID 500 MG TAB GTB SCH (12:48)
--- NOTE | 2017-02-25 13:37 | CONS ---
Date/Time of Note Date/Time of Note DATE: 02/25/17 TIME: 13:34 Assessment/Plan Assessment/Plan Chief Complaint/Hosp Course IMPRESSION: 1. Atrial fibrillation-Having episodes of PAF with reasonable rate control. Currently remains in SR. Had pause approximately 4 seconds this am ? if was during suctioning. No recurrent pause since holding of BB 2. Hypotension-overall improved and stable 3. Abnormal electrocardiogram with inferolateral T-wave inversions. 4. Respiratory failure-s/p trach placement 5. Nonhealing toe ulceration-vascular following 6. Peripheral arterial disease by arterial ultrasound of the lower extremities this admission. 7. Diabetes mellitus. 8. Fevers. 9. Positive troponin-downtrended 10.Bradycardia-improved/stable 11.-severe by echo 12.Cardiomyopathy-EF 40-45% by echo/36% by stress with no ischemia but positive scar. EF <30% by echo post arrest 13.Encephalopathy-anoxic 14. s/p cardiopulmonary arrest 01/08 15. Pre-op-for debridemnt of decubitis ulcer- Patient at this time has no definite cardiac contraindication to proceeding to OR for debridement but is at high risk for CV complications due to severe and cardiomyopathy 16. Hyponatremia Recc: -Tele -serial ecg -HD for volume removal as tolerated ongoing today -Continue eliquis at this time and follow for recurrent bleeding -Continue PO amio in attempt to maintain SR, daily and follow for any recurrent pauses -Will hold on afterload reduction given severe and thus fixed afterload at valve orifice -Continue to hold BB and follow for recurrent pause -Possible pnding debridement Problems: Consultation Date/Type/Reason Admit Date/Time Dec 02, 2016 at 21:01 Initial Consult Date 12/03/16 Type of Consultation: cardiology Reason for Consultation /cardiomyopathy/AF Referring Provider: VIET PARKER MD Exam/Review of Systems Vital Signs Vitals Vital Signs Date Time Temp Pulse Resp B/P Pulse Ox O2 Delivery O2 Flow Rate FiO2 02/25/17 12:00 83 02/25/17 11:21 97.9 18 119/61 98 02/25/17 09:53 30 Intake and Output 02/24/17 02/24/17 02/25/17 14:59 22:59 06:59 Intake Total 760 ml 1020 ml Output Total 300 ml 200 ml Balance 460 ml 820 ml Exam Review of Systems: CONSTITUTIONAL: No fevers, chills. PULMONARY: No sob CARDIOVASCULAR: No chest pain/palpitations GASTROINTESTINAL: No nausea/vomiting. GENITOURINARY: No hematuria/dysuria. MUSCULOSKELETAL: No myagias/arthalgias. PSYCHIATRIC: The patient denies depression. NEUROLOGIC: No weakness Constitutional: other (encephalopathic) Psych: no complaints Head: normocephalic ENMT: mucosa pink and moist Neck: jvd (9 cm water), supple Respiratory: diminished breath sounds (at bases/B) Cardiovascular: regular rate and rhythm Gastrointestinal: non-tender, soft Musculoskeletal: muscle weakness (generalized) Extremities: edema (none) Neurological: lethargic Results Result Diagram: 02/25/17 0617 02/25/17 0617 Results 24 hrs Laboratory Tests Test 02/24/17 17:14 02/24/17 21:20 02/25/17 01:34 02/25/17 06:07 Bedside Glucose 81 117 156 137 Test 02/25/17 06:17 02/25/17 09:11 02/25/17 12:32 White Blood Count 10.0 Red Blood Count 3.23 L Hemoglobin 9.2 L Hematocrit 29.4 L Mean Corpuscular Volume 91.0 Mean Corpuscular Hemoglobin 28.5 L Mean Corpuscular Hemoglobin Concent 31.3 L Red Cell Distribution Width 14.2 Platelet Count 188 Mean Platelet Volume 9.7 Neutrophils % 73.1 Lymphocytes % 13.6 L Monocytes % 10.4 Eosinophils % 0.6 Basophils % 0.2 Nucleated Red Blood Cells % 0.0 Neutrophils # 7.3 Lymphocytes # 1.4 Monocytes # 1.0 H Eosinophils # 0.1 Basophils # 0.0 Nucleated Red Blood Cells # 0.0 Sodium Level 134 L Potassium Level 4.2 Chloride Level 97 Carbon Dioxide Level 28 Anion Gap 13 Blood Urea Nitrogen 65 H Creatinine 1.40 H Glucose Level 146 # Calcium Level 8.0 L Bedside Glucose 165 183 Medications Medications Current Medications Ondansetron HCl (Zofran Inj) 4 mg Q6H PRN IV NAUSEA AND/OR VOMITING Last administered on 02/23/17t 12:49; Admin Dose 4 MG; Start 12/02/16 at 22:30 Miscellaneous Information 1 ea NOTE XX ; Start 12/02/16 at 23:00 Glucose (Glutose) 15 gm Q15M PRN PO DECREASED GLUCOSE; Start 12/02/16 at 23:00 Glucose (Glutose) 22.5 gm Q15M PRN PO DECREASED GLUCOSE; Start 12/02/16 at 23: 00 Dextrose (D50w Syringe) 25 ml Q15M PRN IV DECREASED GLUCOSE Last administered on 02/24/17 05:56; Admin Dose 25 ML; Start 12/02/16 at 23:00 Dextrose (D50w Syringe) 50 ml Q15M PRN IV DECREASED GLUCOSE Last administered on 01/23/17 04:58; Admin Dose 50 ML; Start 12/02/16 at 23:00 Glucagon (Glucagen) 1 mg Q15M PRN IM DECREASED GLUCOSE; Start 12/02/16 at 23:00 Glucose (Glutose) 15 gm Q15M PRN BUCCAL DECREASED GLUCOSE; Start 12/02/16 at 23 :00 Acetaminophen (Tylenol Supp) 650 mg Q6H PRN [place] ELEVATED TEMPERATURE Last administered on 01/13/17 20:32; Admin Dose 650 MG; Start 12/09/16 at 17:00 Hydralazine HCl (Apresoline) 10 mg Q6H PRN IV SBP>150mm hg Last administered on 12/19/16 08:50; Admin Dose 10 MG; Start 12/11/16 at 10:30 Morphine Sulfate (morphine) 2 mg Q2H PRN IV PAIN LEVEL 4-7; Start 12/13/16 at 10 :00 Collagenase (Santyl) 1 applic DAILY TOP Last administered on 02/25/17 09:00; Admin Dose 1 APPLIC; Start 01/04/17 at 09:00 Metoprolol Tartrate (Lopressor) 5 mg Q4 PRN IV FOR H.R>110; Start 01/12/17 at 17:30 Acetaminophen (Tylenol Liquid) 650 mg Q6H PRN NGT PAIN AND OR ELEVATED TEMP Last administered on 02/03/17 17:37; Admin Dose 650 MG; Start 01/13/17 at 23:30 Acetaminophen/ Hydrocodone Bitart ([place] (5/325)) 1 tab Q6H PRN NGT PAIN LEVEL 4-7; Start 01/13/17 at 23:30 Levetiracetam (Keppra Liquid) 1,000 mg DAILY NGT Last administered on 12:46; Admin Dose 1,000 MG; Start 01/14/17 at 09:00 Meclizine HCl (Antivert) 25 mg TID PRN NGT dizziness; Start 01/13/17 at 20:00 Zolpidem Tartrate (Ambien) 5 mg HS PRN NGT INSOMNIA; Start 01/13/17 at 20:00 Metoprolol Tartrate (Lopressor) 12.5 mg BID NGT Last administered on 02/24/17 10:54; Admin Dose 12.5 MG; Start 01/24/17 at 21:00; Status Future Hold Nystatin (Nystatin Susp) 5 ml Q6 PO Last administered on 02/25/17 12:46; Admin Dose 5 ML; Start 01/31/17 at 12:00 Lansoprazole (Prevacid) 30 mg DAILY@06 GTB Last administered on 02/25/17 06:08 ; Admin Dose 30 MG; Start 02/09/17 at 06:00 Zinc Sulfate (Zinc Sulfate) 220 mg DAILY GTB Last administered on 02/25/17 12: 47; Admin Dose 220 MG; Start 02/14/17 at 15:00 Multivitamins (Multivitamin) 30 ml DAILY GTB Last administered on 02/25/17 12: 47; Admin Dose 30 ML; Start 02/14/17 at 16:30 Docusate Sodium (Colace Liquid Cup) 100 mg BID GTB Last administered on 12:48; Admin Dose 100 MG; Start 02/14/17 at 21:00 Apixaban (Eliquis) 2.5 mg BID GTB Last administered on 02/25/17 12:47; Admin Dose 2.5 MG; Start 02/14/17 at 21:00 Amiodarone HCl (Cordarone) 200 mg DAILY GTB Last administered on 02/25/17 12: 47; Admin Dose 200 MG; Start 02/19/17 at 09:00 Ascorbic Acid (Vitamin C) 500 mg DAILY GTB Last administered on 02/25/17 12:48 ; Admin Dose 500 MG; Start 02/22/17 at 09:00 Insulin Glargine (Lantus) 56 unit DAILY@20 SC Last administered on 02/24/17 21 :27; Admin Dose 56 UNIT; Start 02/22/17 at 20:00 Insulin Aspart NOVOLOG *MODERATE* ALGORI... Q4 SC Last administered on 13:01; Admin Dose 4 UNIT; Start 02/23/17 at 05:00 Sodium Chloride (NS) 1,000 ml @ 40 mls/hr Q24H IV Last administered on 13:15; Admin Dose 40 MLS/HR; Start 02/23/17 at 14:30 Metoclopramide HCl (Reglan) 5 mg Q6 IV Last administered on 02/25/17 12:49; Admin Dose 5 MG; Start 02/23/17 at 18:00 VICENTE LESLIE Feb 25, 2017 13:37
--- NOTE | 2017-02-25 13:47 | CONS ---
Date/Time of Note Date/Time of Note DATE: 02/25/17 TIME: 13:46 Assessment/Plan Assessment/Plan Chief Complaint/Hosp Course - s/p recurrent sepsis due to pneumonia +/- funguria - treated with cefepime, tobramycin, and caspofungin - s/p recurrent pneumonia due to pseudomonas - s/p sepsis due to possible tracheobronchitis/pneumonia - funguria - treated with caspofungin - thrush, refractory to nystatin - recurrent cardiopulmonary arrest on 12/09/2016 and on 01/08/2017 - hypoxic respiratory failure, intubated for the 2nd time on 12/12/2016; extubated 12/18/2016; re-intubated for the 3rd time 01/08/2017, s/p tracheostomy 06/2017 - bleeding from trach site - resolved - acute on chronic anemia due to acute blood loss, requiring blood transfusion - 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 Blood cultures from HD catheter on 12/13/2016 are negative to date. 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 MRI on 12/06/2016 and bone scan on showed early OM of the distal phalanx of the left great toe and left fourth proximal phalanx. superficial swab grew inna only. At present, no e/o persistent infection - recurrent pleural effusion - s/p right pleural effusion s/p thoracentesis with .9L removed on 12/16/2016; ( Note: there is no pleural fluid cx since orders were placed after Right thoracentesis, and Left thoracentesis was not performed on 12/17/16 d/t insufficient fluid) - ARANZA on CKD that progressed to ESRD and started on HD from 12/09/2016 - oliguria - improved - A fib -> PAF - small nonreversible perfusion abnormality in the inferoapical and inferior carver; EF 36% per Lexiscan 12/24/2016 - severe , EF 40-45% per TTE 12/17/16 - DM - Hgb A1c 8.7% - HTN associated with DM - acute encephalopathy with anoxic brain injury - unstageable decubitus ulcer of coccyx, no evidence of infection - dysphagia s/p G-tube placement 02/08/2017 NOTE: Pt completed 6 weeks (12/03/2016-01/15/2017) of antibiotics to treat early OM of the distal phalanx of the left great toe and left fourth proximal phalanx ; s/p pip/tazo 12/03/16-01/08/17; linezolid 01/08/17-01/20/17; caspofungin 01/12/17-01/21/17 and 02/04/17-02/17/17; tobramycin 02/04/2017- 02/15/17 for pseudomonas; cefepime (02/02/17-02/18/17). recommendations: - monitor closely off abx - continue nystatin for thrush - wound care of the coccyx and upper back Management d/w ALINA Ball and Dr. Wilson Problems: Consultation Date/Type/Reason Admit Date/Time Dec 02, 2016 at 21:01 Initial Consult Date 12/03/16 Type of Consultation: Infectious Disease Referring Provider: VIET PARKER MD 24 HR Interval Summary Free Text/Dictation Dr. Vaughn planning to do debridement on Tuesday; HD done today; no acute issues; afebrile per d/w nursing staff. Unable to perform ROS d/t chronic encephalopathy. Subjective hx not possible: pt non-verbal Exam/Review of Systems Vital Signs Vitals Vital Signs Date Time Temp Pulse Resp B/P Pulse Ox O2 Delivery O2 Flow Rate FiO2 02/25/17 12:00 83 02/25/17 11:21 97.9 18 119/61 98 02/25/17 09:53 30 Intake and Output 02/24/17 02/24/17 02/25/17 15:00 23:00 07:00 Intake Total 760 ml 1020 ml Output Total 300 ml 200 ml Balance 460 ml 820 ml Exam Constitutional: frail, chronically debilitated, non-communicative, well developed Head: atraumatic, normocephalic Eyes: nl conjunctiva, nl lids Neck: other (tracheostomy intact - no bleeding noted) Respiratory: essentially clear anteriorly Cardiovascular: nl pulses, regular rate and rhythm Gastrointestinal: non-tender, soft, G-tube with tube feeds intact Genitourinary - Male: nl penis, nl scrotum, other (Condom catheter in place) Musculoskeletal: nl extremities to inspection Extremities: No edema Neurological: lethargic/asleep Skin: nl turgor, other (wounds: see nurse note and photos in chart for details ; decub on the coccyx) Results Result Diagram: 02/25/17 0617 02/25/17 0617 Results 24 hrs Laboratory Tests Test 02/24/17 17:14 02/24/17 21:20 02/25/17 01:34 02/25/17 06:07 Bedside Glucose 81 117 156 137 Test 02/25/17 06:17 02/25/17 09:11 02/25/17 12:32 White Blood Count 10.0 Red Blood Count 3.23 L Hemoglobin 9.2 L Hematocrit 29.4 L Mean Corpuscular Volume 91.0 Mean Corpuscular Hemoglobin 28.5 L Mean Corpuscular Hemoglobin Concent 31.3 L Red Cell Distribution Width 14.2 Platelet Count 188 Mean Platelet Volume 9.7 Neutrophils % 73.1 Lymphocytes % 13.6 L Monocytes % 10.4 Eosinophils % 0.6 Basophils % 0.2 Nucleated Red Blood Cells % 0.0 Neutrophils # 7.3 Lymphocytes # 1.4 Monocytes # 1.0 H Eosinophils # 0.1 Basophils # 0.0 Nucleated Red Blood Cells # 0.0 Sodium Level 134 L Potassium Level 4.2 Chloride Level 97 Carbon Dioxide Level 28 Anion Gap 13 Blood Urea Nitrogen 65 H Creatinine 1.40 H Glucose Level 146 # Calcium Level 8.0 L Bedside Glucose 165 183 Medications Medications Current Medications Ondansetron HCl (Zofran Inj) 4 mg Q6H PRN IV NAUSEA AND/OR VOMITING Last administered on 02/23/17 12:49; Admin Dose 4 MG; Start 12/02/16 at 22:30 Miscellaneous Information 1 ea NOTE XX ; Start 12/02/16 at 23:00 Glucose (Glutose) 15 gm Q15M PRN PO DECREASED GLUCOSE; Start 12/02/16 at 23:00 Glucose (Glutose) 22.5 gm Q15M PRN PO DECREASED GLUCOSE; Start 12/02/16 at 23: 00 Dextrose (D50w Syringe) 25 ml Q15M PRN IV DECREASED GLUCOSE Last administered on 02/24/17 05:56; Admin Dose 25 ML; Start 12/02/16 at 23:00 Dextrose (D50w Syringe) 50 ml Q15M PRN IV DECREASED GLUCOSE Last administered on 01/23/17 04:58; Admin Dose 50 ML; Start 12/02/16 at 23:00 Glucagon (Glucagen) 1 mg Q15M PRN IM DECREASED GLUCOSE; Start 12/02/16 at 23:00 Glucose (Glutose) 15 gm Q15M PRN BUCCAL DECREASED GLUCOSE; Start 12/02/16 at 23 :00 Acetaminophen (Tylenol Supp) 650 mg Q6H PRN [place] ELEVATED TEMPERATURE Last administered on 01/13/17 20:32; Admin Dose 650 MG; Start 12/09/16 at 17:00 Hydralazine HCl (Apresoline) 10 mg Q6H PRN IV SBP>150mm hg Last administered on 12/19/16 08:50; Admin Dose 10 MG; Start 12/11/16 at 10:30 Morphine Sulfate (morphine) 2 mg Q2H PRN IV PAIN LEVEL 4-7; Start 12/13/16 at 10 :00 Collagenase (Santyl) 1 applic DAILY TOP Last administered on 02/25/17 09:00; Admin Dose 1 APPLIC; Start 01/04/17 at 09:00 Metoprolol Tartrate (Lopressor) 5 mg Q4 PRN IV FOR H.R>110; Start 01/12/17 at 17:30 Acetaminophen (Tylenol Liquid) 650 mg Q6H PRN NGT PAIN AND OR ELEVATED TEMP Last administered on 02/03/17 17:37; Admin Dose 650 MG; Start 01/13/17 at 23:30 Acetaminophen/ Hydrocodone Bitart ([place] (5/325)) 1 tab Q6H PRN NGT PAIN LEVEL 4-7; Start 01/13/17 at 23:30 Levetiracetam (Keppra Liquid) 1,000 mg DAILY NGT Last administered on 12:46; Admin Dose 1,000 MG; Start 01/14/17 at 09:00 Meclizine HCl (Antivert) 25 mg TID PRN NGT dizziness; Start 01/13/17 at 20:00 Zolpidem Tartrate (Ambien) 5 mg HS PRN NGT INSOMNIA; Start 01/13/17 at 20:00 Metoprolol Tartrate (Lopressor) 12.5 mg BID NGT Last administered on 02/24/17 10:54; Admin Dose 12.5 MG; Start 01/24/17 at 21:00; Status Future Hold Nystatin (Nystatin Susp) 5 ml Q6 PO Last administered on 02/25/17 12:46; Admin Dose 5 ML; Start 01/31/17 at 12:00 Lansoprazole (Prevacid) 30 mg DAILY@06 GTB Last administered on 02/25/17 06:08 ; Admin Dose 30 MG; Start 02/09/17 at 06:00 Zinc Sulfate (Zinc Sulfate) 220 mg DAILY GTB Last administered on 02/25/17 12: 47; Admin Dose 220 MG; Start 02/14/17 at 15:00 Multivitamins (Multivitamin) 30 ml DAILY GTB Last administered on 02/25/17 12: 47; Admin Dose 30 ML; Start 02/14/17 at 16:30 Docusate Sodium (Colace Liquid Cup) 100 mg BID GTB Last administered on 12:48; Admin Dose 100 MG; Start 02/14/17 at 21:00 Apixaban (Eliquis) 2.5 mg BID GTB Last administered on 02/25/17 12:47; Admin Dose 2.5 MG; Start 02/14/17 at 21:00 Amiodarone HCl (Cordarone) 200 mg DAILY GTB Last administered on 02/25/17 12: 47; Admin Dose 200 MG; Start 02/19/17 at 09:00 Ascorbic Acid (Vitamin C) 500 mg DAILY GTB Last administered on 02/25/17 12:48 ; Admin Dose 500 MG; Start 02/22/17 at 09:00 Insulin Glargine (Lantus) 56 unit DAILY@20 SC Last administered on 02/24/17 21 :27; Admin Dose 56 UNIT; Start 02/22/17 at 20:00 Insulin Aspart NOVOLOG *MODERATE* ALGORI... Q4 SC Last administered on 13:01; Admin Dose 4 UNIT; Start 02/23/17 at 05:00 Sodium Chloride (NS) 1,000 ml @ 40 mls/hr Q24H IV Last administered on 13:15; Admin Dose 40 MLS/HR; Start 02/23/17 at 14:30 Metoclopramide HCl (Reglan) 5 mg Q6 IV Last administered on 02/25/17t 12:49; Admin Dose 5 MG; Start 02/23/17 at 18:00 YUMIKO ALATORRE NP Feb 25, 2017 13:47
[2017-02-25] MEDS: SOD CHLORIDE 0.9% 1,000 ML IV SCH (14:30)
--- NOTE | 2017-02-25 16:00 | PN ---
Date/Time of Note Date/Time of Note DATE: 02/25/17 TIME: 15:58 Assessment/Plan VTE Prophylaxis VTE Prophylaxis Intervention: SCD's Lines/Catheters Urinary Cath still in place: No Assessment/Plan Chief Complaint/Hosp Course G-tube feeding restarted, no episodes of emesis per RN, patient remains hemodynamically stable. ASSESSMENT AND PLAN: - Sacral decubitus ulcer, Dr. Ureña is following in surgical consultation for possible debridement. Continue multivitamins and zinc sulfate. - Possible recurrent sepsis, resolving. Continue antibiotics per ID. Dr Celena pritchard is following infection disease consultation. - Dysphagia. S/p G-tube by Dr. Smith. Continue G-tube feeding, monitor residual. - Anemia of blood loss. Continue to monitor H&H, transfuse as needed. - Status post cardiopulmonary arrest on 12/09/2016 and 01/08/2017. Continue ventilatory support. - Anoxic encephalopathy. Continue Keppra. - Status post tracheostomy on 01/23/2017. Continue tracheostomy care. - End-stage renal disease. Continue hemodialysis per nephrology. - Paroxysmal atrial fibrillation. Continue Eliquis. - Diabetes mellitus type 2. Continue Lantus and NovoLog with sliding scale coverage with Accu-Cheks q. 4 hours. - Diabetic foot ulcer. Continue current wound care. - Osteomyelitis of the distal phalanx of the great left toe. Completed treatment for antibiotics. Continue sequential compression device for deep venous thrombosis prophylaxis and Protonix for peptic ulcer disease prophylaxis. Further recommendations based on clinical course. Plan of care discussed with Dr. Heredia. Problems: Exam/Review of Systems Vital Signs Vitals Vital Signs Date Time Temp Pulse Resp B/P Pulse Ox O2 Delivery O2 Flow Rate FiO2 02/25/17 15:00 72 17 98 30 02/25/17 11:21 97.9 119/61 Intake and Output 02/24/17 02/24/17 02/25/17 15:00 23:00 07:00 Intake Total 760 ml 1020 ml Output Total 300 ml 200 ml Balance 460 ml 820 ml Exam Constitutional: non-verbal Head: atraumatic, normocephalic ENMT: other (Nasogastric tube) Neck: other (Tracheostomy), supple Respiratory: diminished breath sounds Cardiovascular: nl pulses Gastrointestinal: non-tender, soft, GT Neurological: unresponsive Results Result Diagram: 02/25/1717 02/25/17 0617 Results 24 hrs Laboratory Tests Test 02/24/17 17:14 02/24/17 21:20 02/25/17 01:34 02/25/17 06:07 Bedside Glucose 81 117 156 137 Test 02/25/17 06:17 02/25/17 09:11 02/25/17 12:32 White Blood Count 10.0 Red Blood Count 3.23 L Hemoglobin 9.2 L Hematocrit 29.4 L Mean Corpuscular Volume 91.0 Mean Corpuscular Hemoglobin 28.5 L Mean Corpuscular Hemoglobin Concent 31.3 L Red Cell Distribution Width 14.2 Platelet Count 188 Mean Platelet Volume 9.7 Neutrophils % 73.1 Lymphocytes % 13.6 L Monocytes % 10.4 Eosinophils % 0.6 Basophils % 0.2 Nucleated Red Blood Cells % 0.0 Neutrophils # 7.3 Lymphocytes # 1.4 Monocytes # 1.0 H Eosinophils # 0.1 Basophils # 0.0 Nucleated Red Blood Cells # 0.0 Sodium Level 134 L Potassium Level 4.2 Chloride Level 97 Carbon Dioxide Level 28 Anion Gap 13 Blood Urea Nitrogen 65 H Creatinine 1.40 H Glucose Level 146 # Calcium Level 8.0 L Bedside Glucose 165 183 Medications Medications Current Medications Ondansetron HCl (Zofran Inj) 4 mg Q6H PRN IV NAUSEA AND/OR VOMITING Last administered on 02/23/17 12:49; Admin Dose 4 MG; Start 12/02/16 at 22:30 Miscellaneous Information 1 ea NOTE XX ; Start 12/02/16 at 23:00 Glucose (Glutose) 15 gm Q15M PRN PO DECREASED GLUCOSE; Start 12/02/16 at 23:00 Glucose (Glutose) 22.5 gm Q15M PRN PO DECREASED GLUCOSE; Start 12/02/16 at 23: 00 Dextrose (D50w Syringe) 25 ml Q15M PRN IV DECREASED GLUCOSE Last administered on 02/24/17 05:56; Admin Dose 25 ML; Start 12/02/16 at 23:00 Dextrose (D50w Syringe) 50 ml Q15M PRN IV DECREASED GLUCOSE Last administered on 01/23/17 04:58; Admin Dose 50 ML; Start 12/02/16 at 23:00 Glucagon (Glucagen) 1 mg Q15M PRN IM DECREASED GLUCOSE; Start 12/02/16 at 23:00 Glucose (Glutose) 15 gm Q15M PRN BUCCAL DECREASED GLUCOSE; Start 12/02/16 at 23 :00 Acetaminophen (Tylenol Supp) 650 mg Q6H PRN [place] ELEVATED TEMPERATURE Last administered on 01/13/17 20:32; Admin Dose 650 MG; Start 12/09/16 at 17:00 Hydralazine HCl (Apresoline) 10 mg Q6H PRN IV SBP>150mm hg Last administered on 12/19/16 08:50; Admin Dose 10 MG; Start 12/11/16 at 10:30 Morphine Sulfate (morphine) 2 mg Q2H PRN IV PAIN LEVEL 4-7; Start 12/13/16 at 10 :00 Collagenase (Santyl) 1 applic DAILY TOP Last administered on 02/25/17 09:00; Admin Dose 1 APPLIC; Start 01/04/17 at 09:00 Metoprolol Tartrate (Lopressor) 5 mg Q4 PRN IV FOR H.R>110; Start 01/12/17 at 17:30 Acetaminophen (Tylenol Liquid) 650 mg Q6H PRN NGT PAIN AND OR ELEVATED TEMP Last administered on 02/03/17 17:37; Admin Dose 650 MG; Start 01/13/17 at 23:30 Acetaminophen/ Hydrocodone Bitart ([place] (5/325)) 1 tab Q6H PRN NGT PAIN LEVEL 4-7; Start 01/13/17 at 23:30 Levetiracetam (Keppra Liquid) 1,000 mg DAILY NGT Last administered on 12:46; Admin Dose 1,000 MG; Start 01/14/17 at 09:00 Meclizine HCl (Antivert) 25 mg TID PRN NGT dizziness; Start 01/13/17 at 20:00 Zolpidem Tartrate (Ambien) 5 mg HS PRN NGT INSOMNIA; Start 01/13/17 at 20:00 Metoprolol Tartrate (Lopressor) 12.5 mg BID NGT Last administered on 02/24/17 10:54; Admin Dose 12.5 MG; Start 01/24/17 at 21:00; Status Future Hold Nystatin (Nystatin Susp) 5 ml Q6 PO Last administered on 02/25/17 12:46; Admin Dose 5 ML; Start 01/31/17 at 12:00 Lansoprazole (Prevacid) 30 mg DAILY@06 GTB Last administered on 02/25/17 06:08 ; Admin Dose 30 MG; Start 02/09/17 at 06:00 Zinc Sulfate (Zinc Sulfate) 220 mg DAILY GTB Last administered on 02/25/17 12: 47; Admin Dose 220 MG; Start 02/14/17 at 15:00 Multivitamins (Multivitamin) 30 ml DAILY GTB Last administered on 02/25/17 12: 47; Admin Dose 30 ML; Start 02/14/17 at 16:30 Docusate Sodium (Colace Liquid Cup) 100 mg BID GTB Last administered on 12:48; Admin Dose 100 MG; Start 02/14/17 at 21:00 Apixaban (Eliquis) 2.5 mg BID GTB Last administered on 02/25/17 12:47; Admin Dose 2.5 MG; Start 02/14/17 at 21:00 Amiodarone HCl (Cordarone) 200 mg DAILY GTB Last administered on 02/25/17 12: 47; Admin Dose 200 MG; Start 02/19/17 at 09:00 Ascorbic Acid (Vitamin C) 500 mg DAILY GTB Last administered on 02/25/17 12:48 ; Admin Dose 500 MG; Start 02/22/17 at 09:00 Insulin Glargine (Lantus) 56 unit DAILY@20 SC Last administered on 02/24/17 21 :27; Admin Dose 56 UNIT; Start 02/22/17 at 20:00 Insulin Aspart NOVOLOG *MODERATE* ALGORI... Q4 SC Last administered on 13:01; Admin Dose 4 UNIT; Start 02/23/17 at 05:00 Sodium Chloride (NS) 1,000 ml @ 40 mls/hr Q24H IV Last administered on 13:15; Admin Dose 40 MLS/HR; Start 02/23/17 at 14:30 Metoclopramide HCl (Reglan) 5 mg Q6 IV Last administered on 02/25/17 12:49; Admin Dose 5 MG; Start 02/23/17 at 18:00 KIMBERLY NOYOLA Feb 25, 2017 15:59
[2017-02-25] MEDS: ACETAMINOPHEN 650MG/20.3ML CUP NGT PRN (17:51)
[2017-02-25 18:39] LABS: TB-NIL 0.01 IU/mL
[2017-02-25] MEDS: INSULIN GLARGINE [LANtus] 3 ML PEN SC SCH (21:42)
[2017-02-26] VITALS (24 sets, daily range): BP systolic 87–129; BP diastolic 37–84; PULSE 66–88; RESP 16–24
[2017-02-26] MEDS: NYSTATIN SUSP 5 ML CUP PO SCH ×4 (01:03→17:34)
[2017-02-26] MEDS: METOCLOPRAMIDE 10 MG INJ IV SCH ×4 (01:03→17:34)
[2017-02-26] MEDS: INSULIN ASPART [NOVOLOG] 3 ML PEN SC SCH ×6 (01:05→20:25)
[2017-02-26] MEDS: ALBUTEROL 18 GM INHALER INH SCH ×4 (01:41→20:08)
[2017-02-26 06:31] LABS: ADD SCAN DIFF NO
[2017-02-26] MEDS: LANSOPRAZOLE 30 MG CAP GTB SCH (06:34)
[2017-02-26 06:37] LABS: BASOPHILS % 0.2 % (0.0-2.0); EOSINOPHILS % 0.3 % (0.0-7.0); HEMATOCRIT 27.1 % (42.0-52.0); HEMOGLOBIN 8.6 g/dl (14.0-18.0); LYMPHOCYTES # 1.1 10^3/ul (0.8-2.9); LYMPHOCYTES % 10.4 % (15.0-51.0); MEAN CORPUSCULAR HGB CONC 31.7 g/dl (32.0-37.0); MEAN CORPUSCULAR VOLUME 91.2 fl (82.0-101.0); MEAN PLATELET VOLUME 10.1 fl (7.4-10.4); MONOCYTE # 0.8 10^3/ul (0.3-0.9); MONOCYTES % 8.2 % (0.0-11.0); NEUTROPHILS % 79.1 % (39.0-77.0); PLATELET COUNT 200 10^3/UL (140-415); RED BLOOD COUNT 2.97 10^6/ul (4.70-6.10); RED CELL DISTRIBUTION WIDTH 14.5 % (11.5-14.5); WHITE BLOOD COUNT 10.1 10^3/ul (4.8-10.8)
[2017-02-26 07:11] LABS: CALCIUM 8.5 mg/dl (8.4-10.2); CREATININE 1.24 mg/dl (0.61-1.24); POTASSIUM 3.7 mmol/L (3.5-5.1)
[2017-02-26] MEDS: DOCUSATE SODIUM 10 MG/ML (10ML CUP) GTB SCH ×2 (09:55→20:17)
[2017-02-26] MEDS: MULTIVITAMINS 30 ML CUP GTB SCH (09:55)
[2017-02-26] MEDS: ZINC SULFATE 220 MG CAP GTB SCH (09:55)
[2017-02-26] MEDS: LEVETIRACETAM (100 MG/ML) 5ML CUP NGT SCH (09:55)
[2017-02-26] MEDS: ASCORBIC ACID 500 MG TAB GTB SCH (09:55)
[2017-02-26] MEDS: AMIODARONE 200 MG TAB GTB SCH (09:56)
[2017-02-26] MEDS: COLLAGENASE 30 GM TUBE TOP SCH (09:56)
[2017-02-26] MEDS: SOD CHLORIDE 0.9% 1,000 ML IV SCH (14:34)
--- NOTE | 2017-02-26 14:37 | CONS ---
Date/Time of Note Date/Time of Note DATE: 02/26/17 TIME: 14:33 Assessment/Plan Assessment/Plan Chief Complaint/Hosp Course IMPRESSION: 1. Atrial fibrillation-Having episodes of PAF with reasonable rate control. Currently remains in SR. Had pause approximately 4 seconds this am ? if was during suctioning. No recurrent pause since holding of BB 2. Hypotension-overall improved and stable 3. Abnormal electrocardiogram with inferolateral T-wave inversions. 4. Respiratory failure-s/p trach placement 5. Nonhealing toe ulceration-vascular following 6. Peripheral arterial disease by arterial ultrasound of the lower extremities this admission. 7. Diabetes mellitus. 8. Fevers. 9. Positive troponin-downtrended 10.Bradycardia-improved/stable 11.-severe by echo 12.Cardiomyopathy-EF 40-45% by echo/36% by stress with no ischemia but positive scar. EF <30% by echo post arrest 13.Encephalopathy-anoxic 14. s/p cardiopulmonary arrest 01/08 15. Pre-op-for debridemnt of decubitis ulcer- Patient at this time has no definite cardiac contraindication to proceeding to OR for debridement but is at high risk for CV complications due to severe and cardiomyopathy 16. Hyponatremia Recc: -Tele -serial ecg -HD for volume removal as tolerated ongoing today -Eliquis to be held in anticipation of upcoming surgery -Continue PO amio in attempt to maintain SR, daily and follow for any recurrent pauses -Will hold on afterload reduction given severe and thus fixed afterload at valve orifice -Continue to hold BB and follow for recurrent pause -Possible pnding debridement Problems: Consultation Date/Type/Reason Admit Date/Time Dec 02, 2016 at 21:01 Initial Consult Date 12/03/16 Type of Consultation: cardiology Reason for Consultation /cardiomyopathy/AF Referring Provider: VIET PARKER MD Exam/Review of Systems Vital Signs Vitals Vital Signs Date Time Temp Pulse Resp B/P Pulse Ox O2 Delivery O2 Flow Rate FiO2 02/26/17 13:10 64 16 98 30 02/26/17 11:04 98.2 119/52 Intake and Output 02/25/17 02/25/17 02/26/17 15:00 23:00 07:00 Intake Total 500 ml 760 ml 750 ml Output Total 2500 ml 200 ml 550 ml Balance -2000 ml 560 ml 200 ml Exam Review of Systems: CONSTITUTIONAL: No fevers, chills. PULMONARY: No sob CARDIOVASCULAR: No chest pain/palpitations GASTROINTESTINAL: No nausea/vomiting. GENITOURINARY: No hematuria/dysuria. MUSCULOSKELETAL: No myagias/arthalgias. PSYCHIATRIC: The patient denies depression. NEUROLOGIC: No weakness Constitutional: other (encephaloopathic) Psych: no complaints Head: normocephalic ENMT: mucosa pink and moist Neck: jvd (9 cm water), supple Respiratory: diminished breath sounds Cardiovascular: regular rate and rhythm Gastrointestinal: non-tender, soft Musculoskeletal: muscle tone (normal) Extremities: edema (none) Neurological: other (No focal deficits) Results Result Diagram: 02/26/17 0533 02/26/17 0536 Results 24 hrs Laboratory Tests Test 02/25/17 17:34 02/25/17 20:29 02/25/17 21:35 02/26/17 00:50 Bedside Glucose 159 185 176 211 Test 02/26/17 05:33 02/26/17 05:36 02/26/17 06:22 02/26/17 08:21 White Blood Count 10.1 Red Blood Count 2.97 L Hemoglobin 8.6 L Hematocrit 27.1 L Mean Corpuscular Volume 91.2 Mean Corpuscular Hemoglobin 29.0 Mean Corpuscular Hemoglobin Concent 31.7 L Red Cell Distribution Width 14.5 Platelet Count 200 Mean Platelet Volume 10.1 Neutrophils % 79.1 H Lymphocytes % 10.4 L Monocytes % 8.2 Eosinophils % 0.3 Basophils % 0.2 Nucleated Red Blood Cells % 0.0 Neutrophils # 8.0 H Lymphocytes # 1.1 Monocytes # 0.8 Eosinophils # 0.0 Basophils # 0.0 Nucleated Red Blood Cells # 0.0 Sodium Level 149 H Potassium Level 3.7 Chloride Level 102 Carbon Dioxide Level 31 Anion Gap 20 H Blood Urea Nitrogen 50 H Creatinine 1.24 Glucose Level 155 Calcium Level 8.5 Bedside Glucose 174 190 Test 02/26/17 12:34 Bedside Glucose 214 Medications Medications Current Medications Ondansetron HCl (Zofran Inj) 4 mg Q6H PRN IV NAUSEA AND/OR VOMITING Last administered on 02/23/17t 12:49; Admin Dose 4 MG; Start 12/02/16 at 22:30 Miscellaneous Information 1 ea NOTE XX ; Start 12/02/16 at 23:00 Glucose (Glutose) 15 gm Q15M PRN PO DECREASED GLUCOSE; Start 12/02/16 at 23:00 Glucose (Glutose) 22.5 gm Q15M PRN PO DECREASED GLUCOSE; Start 12/02/16 at 23: 00 Dextrose (D50w Syringe) 25 ml Q15M PRN IV DECREASED GLUCOSE Last administered on 02/24/17 05:56; Admin Dose 25 ML; Start 12/02/16 at 23:00 Dextrose (D50w Syringe) 50 ml Q15M PRN IV DECREASED GLUCOSE Last administered on 01/23/17 04:58; Admin Dose 50 ML; Start 12/02/16 at 23:00 Glucagon (Glucagen) 1 mg Q15M PRN IM DECREASED GLUCOSE; Start 12/02/16 at 23:00 Glucose (Glutose) 15 gm Q15M PRN BUCCAL DECREASED GLUCOSE; Start 12/02/16 at 23 :00 Acetaminophen (Tylenol Supp) 650 mg Q6H PRN [place] ELEVATED TEMPERATURE Last administered on 01/13/17 20:32; Admin Dose 650 MG; Start 12/09/16 at 17:00 Hydralazine HCl (Apresoline) 10 mg Q6H PRN IV SBP>150mm hg Last administered on 12/19/16 08:50; Admin Dose 10 MG; Start 12/11/16 at 10:30 Morphine Sulfate (morphine) 2 mg Q2H PRN IV PAIN LEVEL 4-7; Start 12/13/16 at 10 :00 Collagenase (Santyl) 1 applic DAILY TOP Last administered on 02/26/17 09:56; Admin Dose 1 APPLIC; Start 01/04/17 at 09:00 Metoprolol Tartrate (Lopressor) 5 mg Q4 PRN IV FOR H.R>110; Start 01/12/17 at 17:30 Acetaminophen (Tylenol Liquid) 650 mg Q6H PRN NGT PAIN AND [place] ELEVATED TEMP Last administered on 02/25/17 17:51; Admin Dose 650 MG; Start 01/13/17 at 23:30 Acetaminophen/ Hydrocodone Bitart ([place] (5/325)) 1 tab Q6H PRN NGT PAIN LEVEL 4-7; Start 01/13/17 at 23:30 Levetiracetam (Keppra Liquid) 1,000 mg DAILY NGT Last administered on 09:55; Admin Dose 1,000 MG; Start 01/14/17 at 09:00 Meclizine HCl (Antivert) 25 mg TID PRN NGT dizziness; Start 01/13/17 at 20:00 Zolpidem Tartrate (Ambien) 5 mg HS PRN NGT INSOMNIA; Start 01/13/17 at 20:00 Metoprolol Tartrate (Lopressor) 12.5 mg BID NGT Last administered on 02/24/17 10:54; Admin Dose 12.5 MG; Start 01/24/17 at 21:00; Status Future Hold Nystatin (Nystatin Susp) 5 ml Q6 PO Last administered on 02/26/17 12:54; Admin Dose 5 ML; Start 01/31/17 at 12:00 Lansoprazole (Prevacid) 30 mg DAILY@06 GTB Last administered on 02/26/17 06:34 ; Admin Dose 30 MG; Start 02/09/17 at 06:00 Zinc Sulfate (Zinc Sulfate) 220 mg DAILY GTB Last administered on 02/26/17 09: 55; Admin Dose 220 MG; Start 02/14/17 at 15:00 Multivitamins (Multivitamin) 30 ml DAILY GTB Last administered on 02/26/17 09: 55; Admin Dose 30 ML; Start 02/14/17 at 16:30 Docusate Sodium (Colace Liquid Cup) 100 mg BID GTB Last administered on 09:55; Admin Dose 100 MG; Start 02/14/17 at 21:00 Apixaban (Eliquis) 2.5 mg BID GTB Last administered on 02/25/17 21:37; Admin Dose 2.5 MG; Start 02/14/17 at 21:00; Status Future hold Amiodarone HCl (Cordarone) 200 mg DAILY GTB Last administered on 02/26/17 09: 56; Admin Dose 200 MG; Start 02/19/17 at 09:00 Ascorbic Acid (Vitamin C) 500 mg DAILY GTB Last administered on 02/26/17 09:55 ; Admin Dose 500 MG; Start 02/22/17 at 09:00 Insulin Glargine (Lantus) 56 unit DAILY@20 SC Last administered on 02/25/17 21 :42; Admin Dose 56 UNIT; Start 02/22/17 at 20:00 Insulin Aspart NOVOLOG *MODERATE* ALGORI... Q4 SC Last administered on 12:40; Admin Dose 6 UNIT; Start 02/23/17 at 05:00 Sodium Chloride (NS) 1,000 ml @ 40 mls/hr Q24H IV Last administered on 13:15; Admin Dose 40 MLS/HR; Start 02/23/17 at 14:30 Metoclopramide HCl (Reglan) 5 mg Q6 IV Last administered on 02/26/17 12:53; Admin Dose 5 MG; Start 02/23/17 at 18:00 VICENTE LESLIE Feb 26, 2017 14:37
--- NOTE | 2017-02-26 14:57 | CONS ---
Date/Time of Note Date/Time of Note DATE: 02/26/17 TIME: 14:57 Assessment/Plan Assessment/Plan Chief Complaint/Hosp Course - s/p recurrent sepsis due to pneumonia +/- funguria - treated with cefepime, tobramycin, and caspofungin - s/p recurrent pneumonia due to pseudomonas - s/p sepsis due to possible tracheobronchitis/pneumonia - funguria - treated with caspofungin - thrush, refractory to nystatin - recurrent cardiopulmonary arrest on 12/09/2016 and on 01/08/2017 - hypoxic respiratory failure, intubated for the 2nd time on 12/12/2016; extubated 12/18/2016; re-intubated for the 3rd time 01/08/2017, s/p tracheostomy 06/2017 - bleeding from trach site - resolved - acute on chronic anemia due to acute blood loss, requiring blood transfusion - 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 Blood cultures from HD catheter on 12/13/2016 are negative to date. 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 MRI on 12/06/2016 and bone scan on showed early OM of the distal phalanx of the left great toe and left fourth proximal phalanx. superficial swab grew inna only. At present, no e/o persistent infection - recurrent pleural effusion - s/p right pleural effusion s/p thoracentesis with .9L removed on 12/16/2016; ( Note: there is no pleural fluid cx since orders were placed after Right thoracentesis, and Left thoracentesis was not performed on 12/17/16 d/t insufficient fluid) - ARANZA on CKD that progressed to ESRD and started on HD from 12/09/2016 - oliguria - improved - A fib -> PAF - small nonreversible perfusion abnormality in the inferoapical and inferior carver; EF 36% per Lexiscan 12/24/2016 - severe , EF 40-45% per TTE 12/17/16 - DM - Hgb A1c 8.7% - HTN associated with DM - acute encephalopathy with anoxic brain injury - unstageable decubitus ulcer of coccyx, no evidence of infection - dysphagia s/p G-tube placement 02/08/2017 NOTE: Pt completed 6 weeks (12/03/2016-01/15/2017) of antibiotics to treat early OM of the distal phalanx of the left great toe and left fourth proximal phalanx ; s/p pip/tazo 12/03/16-01/08/17; linezolid 01/08/17-01/20/17; caspofungin 01/12/17-01/21/17 and 02/04/17-02/17/17; tobramycin 02/04/2017- 02/15/17 for pseudomonas; cefepime (02/02/17-02/18/17). recommendations: - monitor closely off abx - continue nystatin for thrush - wound care of the coccyx and upper back Problems: Consultation Date/Type/Reason Admit Date/Time Dec 02, 2016 at 21:01 Type of Consultation: id Referring Provider: VIET PARKER MD Exam/Review of Systems Vital Signs Vitals Vital Signs Date Time Temp Pulse Resp B/P Pulse Ox O2 Delivery O2 Flow Rate FiO2 02/26/17 13:10 64 16 98 30 02/26/17 11:04 98.2 119/52 Intake and Output 02/25/17 02/25/17 02/26/17 15:00 23:00 07:00 Intake Total 500 ml 760 ml 750 ml Output Total 2500 ml 200 ml 550 ml Balance -2000 ml 560 ml 200 ml Results Result Diagram: 02/26/17 0533 02/26/17 0536 Results 24 hrs Laboratory Tests Test 02/25/17 17:34 02/25/17 20:29 02/25/17 21:35 02/26/17 00:50 Bedside Glucose 159 185 176 211 Test 02/26/17 05:33 02/26/17 05:36 02/26/17 06:22 02/26/17 08:21 White Blood Count 10.1 Red Blood Count 2.97 L Hemoglobin 8.6 L Hematocrit 27.1 L Mean Corpuscular Volume 91.2 Mean Corpuscular Hemoglobin 29.0 Mean Corpuscular Hemoglobin Concent 31.7 L Red Cell Distribution Width 14.5 Platelet Count 200 Mean Platelet Volume 10.1 Neutrophils % 79.1 H Lymphocytes % 10.4 L Monocytes % 8.2 Eosinophils % 0.3 Basophils % 0.2 Nucleated Red Blood Cells % 0.0 Neutrophils # 8.0 H Lymphocytes # 1.1 Monocytes # 0.8 Eosinophils # 0.0 Basophils # 0.0 Nucleated Red Blood Cells # 0.0 Sodium Level 149 H Potassium Level 3.7 Chloride Level 102 Carbon Dioxide Level 31 Anion Gap 20 H Blood Urea Nitrogen 50 H Creatinine 1.24 Glucose Level 155 Calcium Level 8.5 Bedside Glucose 174 190 Test 02/26/17 12:34 Bedside Glucose 214 Medications Medications Current Medications Ondansetron HCl (Zofran Inj) 4 mg Q6H PRN IV NAUSEA AND/OR VOMITING Last administered on 02/23/17 12:49; Admin Dose 4 MG; Start 12/02/16 at 22:30 Miscellaneous Information 1 ea NOTE XX ; Start 12/02/16 at 23:00 Glucose (Glutose) 15 gm Q15M PRN PO DECREASED GLUCOSE; Start 12/02/16 at 23:00 Glucose (Glutose) 22.5 gm Q15M PRN PO DECREASED GLUCOSE; Start 12/02/16 at 23: 00 Dextrose (D50w Syringe) 25 ml Q15M PRN IV DECREASED GLUCOSE Last administered on 02/24/17 05:56; Admin Dose 25 ML; Start 12/02/16 at 23:00 Dextrose (D50w Syringe) 50 ml Q15M PRN IV DECREASED GLUCOSE Last administered on 01/23/17 04:58; Admin Dose 50 ML; Start 12/02/16 at 23:00 Glucagon (Glucagen) 1 mg Q15M PRN IM DECREASED GLUCOSE; Start 12/02/16 at 23:00 Glucose (Glutose) 15 gm Q15M PRN BUCCAL DECREASED GLUCOSE; Start 12/02/16 at 23 :00 Acetaminophen (Tylenol Supp) 650 mg Q6H PRN [place] ELEVATED TEMPERATURE Last administered on 01/13/17 20:32; Admin Dose 650 MG; Start 12/09/16 at 17:00 Hydralazine HCl (Apresoline) 10 mg Q6H PRN IV SBP>150mm hg Last administered on 12/19/16 08:50; Admin Dose 10 MG; Start 12/11/16 at 10:30 Morphine Sulfate (morphine) 2 mg Q2H PRN IV PAIN LEVEL 4-7; Start 12/13/16 at 10 :00 Collagenase (Santyl) 1 applic DAILY TOP Last administered on 02/26/17 09:56; Admin Dose 1 APPLIC; Start 01/04/17 at 09:00 Metoprolol Tartrate (Lopressor) 5 mg Q4 PRN IV FOR H.R>110; Start 01/12/17 at 17:30 Acetaminophen (Tylenol Liquid) 650 mg Q6H PRN NGT PAIN AND OR ELEVATED TEMP Last administered on 02/25/17 17:51; Admin Dose 650 MG; Start 01/13/17 at 23:30 Acetaminophen/ Hydrocodone Bitart ([place] (5/325)) 1 tab Q6H PRN NGT PAIN LEVEL 4-7; Start 01/13/17 at 23:30 Levetiracetam (Keppra Liquid) 1,000 mg DAILY NGT Last administered on 09:55; Admin Dose 1,000 MG; Start 01/14/17 at 09:00 Meclizine HCl (Antivert) 25 mg TID PRN NGT dizziness; Start 01/13/17 at 20:00 Zolpidem Tartrate (Ambien) 5 mg HS PRN NGT INSOMNIA; Start 01/13/17 at 20:00 Metoprolol Tartrate (Lopressor) 12.5 mg BID NGT Last administered on 02/24/17 10:54; Admin Dose 12.5 MG; Start 01/24/17 at 21:00; Status Future Hold Nystatin (Nystatin Susp) 5 ml Q6 PO Last administered on 02/26/17 12:54; Admin Dose 5 ML; Start 01/31/17 at 12:00 Lansoprazole (Prevacid) 30 mg DAILY@06 GTB Last administered on 02/26/17 06:34 ; Admin Dose 30 MG; Start 02/09/17 at 06:00 Zinc Sulfate (Zinc Sulfate) 220 mg DAILY GTB Last administered on 02/26/17 09: 55; Admin Dose 220 MG; Start 02/14/17 at 15:00 Multivitamins (Multivitamin) 30 ml DAILY GTB Last administered on 02/26/17 09: 55; Admin Dose 30 ML; Start 02/14/17 at 16:30 Docusate Sodium (Colace Liquid Cup) 100 mg BID GTB Last administered on 09:55; Admin Dose 100 MG; Start 02/14/17 at 21:00 Apixaban (Eliquis) 2.5 mg BID GTB Last administered on 02/25/17 21:37; Admin Dose 2.5 MG; Start 02/14/17 at 21:00; Status Future hold Amiodarone HCl (Cordarone) 200 mg DAILY GTB Last administered on 02/26/17 09: 56; Admin Dose 200 MG; Start 02/19/17 at 09:00 Ascorbic Acid (Vitamin C) 500 mg DAILY GTB Last administered on 02/26/17 09:55 ; Admin Dose 500 MG; Start 02/22/17 at 09:00 Insulin Glargine (Lantus) 56 unit DAILY@20 SC Last administered on 02/25/17 21 :42; Admin Dose 56 UNIT; Start 02/22/17 at 20:00 Insulin Aspart NOVOLOG *MODERATE* ALGORI... Q4 SC Last administered on 12:40; Admin Dose 6 UNIT; Start 02/23/17 at 05:00 Sodium Chloride (NS) 1,000 ml @ 40 mls/hr Q24H IV Last administered on 14:34; Admin Dose 40 MLS/HR; Start 02/23/17 at 14:30 Metoclopramide HCl (Reglan) 5 mg Q6 IV Last administered on 02/26/17 12:53; Admin Dose 5 MG; Start 02/23/17 at 18:00 NIKHIL RAM MD Feb 26, 2017 14:57
--- NOTE | 2017-02-26 17:35 | PN ---
Date/Time of Note Date/Time of Note DATE: 02/26/17 TIME: 17:33 Assessment/Plan VTE Prophylaxis VTE Prophylaxis Intervention: other Lines/Catheters IV C[facility]ter Type (from [facility]): Peripheral IV Urinary Cath still in place: No Assessment/Plan Assessment/Plan - Sacral decubitus ulcer, Dr. Ureña is following in surgical consultation for possible debridement. Continue multivitamins and zinc sulfate. - possible schedule for Tuesday and son is still deciding. - Possible recurrent sepsis, resolving. Continue antibiotics per ID. Dr Celena pritchard is following infection disease consultation. - Dysphagia. S/p G-tube by Dr. Smith. Continue G-tube feeding, monitor residual. - Anemia of blood loss. Continue to monitor H&H, transfuse as needed. - Status post cardiopulmonary arrest on 12/09/2016 and 01/08/2017. Continue ventilatory support. - Anoxic encephalopathy. Continue Keppra. - Status post tracheostomy on 01/23/2017. Continue tracheostomy care. - End-stage renal disease. Continue hemodialysis per nephrology. - Paroxysmal atrial fibrillation. Continue Eliquis. - Diabetes mellitus type 2. Continue Lantus and NovoLog with sliding scale coverage with Accu-Cheks q. 4 hours. - Diabetic foot ulcer. Continue current wound care. - Osteomyelitis of the distal phalanx of the great left toe. Completed treatment for antibiotics. Continue sequential compression device for deep venous thrombosis prophylaxis and Protonix for peptic ulcer disease prophylaxis. Further recommendations based on clinical course. Plan of care discussed with Dr. Heredia. Subjective 24 Hr Interval Summary Free Text/Dictation Sacral decubitus ulcer, Dr. Ureña is following in surgical consultation for possible debridement. - possible schedule for Tuesday and son is still deciding.dw staff Subjective hx not possible: pt non-verbal Constitutional: requiring IVF, requiring O2 Exam/Review of Systems Vital Signs Vitals Vital Signs Date Time Temp Pulse Resp B/P Pulse Ox O2 Delivery O2 Flow Rate FiO2 02/26/17 16:31 73 02/26/17 16:07 98.8 22 87/37 96 02/26/17 15:20 30 Intake and Output 02/25/17 02/25/17 02/26/17 15:00 23:00 07:00 Intake Total 500 ml 760 ml 750 ml Output Total 2500 ml 200 ml 550 ml Balance -2000 ml 560 ml 200 ml Exam Constitutional: non-verbal Respiratory: clear to auscultation Results Result Diagram: 02/26/17 0533 02/26/17 0536 Results 24 hrs Laboratory Tests Test 02/25/17 17:34 02/25/17 20:29 02/25/17 21:35 02/26/17 00:50 Bedside Glucose 159 185 176 211 Test 02/26/17 05:33 02/26/17 05:36 02/26/17 06:22 02/26/17 08:21 White Blood Count 10.1 Red Blood Count 2.97 L Hemoglobin 8.6 L Hematocrit 27.1 L Mean Corpuscular Volume 91.2 Mean Corpuscular Hemoglobin 29.0 Mean Corpuscular Hemoglobin Concent 31.7 L Red Cell Distribution Width 14.5 Platelet Count 200 Mean Platelet Volume 10.1 Neutrophils % 79.1 H Lymphocytes % 10.4 L Monocytes % 8.2 Eosinophils % 0.3 Basophils % 0.2 Nucleated Red Blood Cells % 0.0 Neutrophils # 8.0 H Lymphocytes # 1.1 Monocytes # 0.8 Eosinophils # 0.0 Basophils # 0.0 Nucleated Red Blood Cells # 0.0 Sodium Level 149 H Potassium Level 3.7 Chloride Level 102 Carbon Dioxide Level 31 Anion Gap 20 H Blood Urea Nitrogen 50 H Creatinine 1.24 Glucose Level 155 Calcium Level 8.5 Bedside Glucose 174 190 Test 02/26/17 12:34 Bedside Glucose 214 Medications Medications Current Medications Ondansetron HCl (Zofran Inj) 4 mg Q6H PRN IV NAUSEA AND/OR VOMITING Last administered on 02/23/17 12:49; Admin Dose 4 MG; Start 12/02/16 at 22:30 Miscellaneous Information 1 ea NOTE XX ; Start 12/02/16 at 23:00 Glucose (Glutose) 15 gm Q15M PRN PO DECREASED GLUCOSE; Start 12/02/16 at 23:00 Glucose (Glutose) 22.5 gm Q15M PRN PO DECREASED GLUCOSE; Start 12/02/16 at 23: 00 Dextrose (D50w Syringe) 25 ml Q15M PRN IV DECREASED GLUCOSE Last administered on 02/24/17 05:56; Admin Dose 25 ML; Start 12/02/16 at 23:00 Dextrose (D50w Syringe) 50 ml Q15M PRN IV DECREASED GLUCOSE Last administered on 01/23/17 04:58; Admin Dose 50 ML; Start 12/02/16 at 23:00 Glucagon (Glucagen) 1 mg Q15M PRN IM DECREASED GLUCOSE; Start 12/02/16 at 23:00 Glucose (Glutose) 15 gm Q15M PRN BUCCAL DECREASED GLUCOSE; Start 12/02/16 at 23 :00 Acetaminophen (Tylenol Supp) 650 mg Q6H PRN [place] ELEVATED TEMPERATURE Last administered on 01/13/17 20:32; Admin Dose 650 MG; Start 12/09/16 at 17:00 Hydralazine HCl (Apresoline) 10 mg Q6H PRN IV SBP>150mm hg Last administered on 12/19/16 08:50; Admin Dose 10 MG; Start 12/11/16 at 10:30 Morphine Sulfate (morphine) 2 mg Q2H PRN IV PAIN LEVEL 4-7; Start 12/13/16 at 10 :00 Collagenase (Santyl) 1 applic DAILY TOP Last administered on 02/26/17 09:56; Admin Dose 1 APPLIC; Start 01/04/17 at 09:00 Metoprolol Tartrate (Lopressor) 5 mg Q4 PRN IV FOR H.R>110; Start 01/12/17 at 17:30 Acetaminophen (Tylenol Liquid) 650 mg Q6H PRN NGT PAIN AND OR ELEVATED TEMP Last administered on 02/25/17 17:51; Admin Dose 650 MG; Start 01/13/17 at 23:30 Acetaminophen/ Hydrocodone Bitart ([place] (5/325)) 1 tab Q6H PRN NGT PAIN LEVEL 4-7; Start 01/13/17 at 23:30 Levetiracetam (Keppra Liquid) 1,000 mg DAILY NGT Last administered on 09:55; Admin Dose 1,000 MG; Start 01/14/17 at 09:00 Meclizine HCl (Antivert) 25 mg TID PRN NGT dizziness; Start 01/13/17 at 20:00 Zolpidem Tartrate (Ambien) 5 mg HS PRN NGT INSOMNIA; Start 01/13/17 at 20:00 Metoprolol Tartrate (Lopressor) 12.5 mg BID NGT Last administered on 02/24/17 10:54; Admin Dose 12.5 MG; Start 01/24/17 at 21:00; Status Future Hold Nystatin (Nystatin Susp) 5 ml Q6 PO Last administered on 02/26/17 12:54; Admin Dose 5 ML; Start 01/31/17 at 12:00 Lansoprazole (Prevacid) 30 mg DAILY@06 GTB Last administered on 02/26/17 06:34 ; Admin Dose 30 MG; Start 02/09/17 at 06:00 Zinc Sulfate (Zinc Sulfate) 220 mg DAILY GTB Last administered on 02/26/17 09: 55; Admin Dose 220 MG; Start 02/14/17 at 15:00 Multivitamins (Multivitamin) 30 ml DAILY GTB Last administered on 02/26/17 09: 55; Admin Dose 30 ML; Start 02/14/17 at 16:30 Docusate Sodium (Colace Liquid Cup) 100 mg BID GTB Last administered on 09:55; Admin Dose 100 MG; Start 02/14/17 at 21:00 Apixaban (Eliquis) 2.5 mg BID GTB Last administered on 02/25/17 21:37; Admin Dose 2.5 MG; Start 02/14/17 at 21:00; Status Future hold Amiodarone HCl (Cordarone) 200 mg DAILY GTB Last administered on 02/26/17 09: 56; Admin Dose 200 MG; Start 02/19/17 at 09:00 Ascorbic Acid (Vitamin C) 500 mg DAILY GTB Last administered on 02/26/17 09:55 ; Admin Dose 500 MG; Start 02/22/17 at 09:00 Insulin Glargine (Lantus) 56 unit DAILY@20 SC Last administered on 02/25/17 21 :42; Admin Dose 56 UNIT; Start 02/22/17 at 20:00 Insulin Aspart NOVOLOG *MODERATE* ALGORI... Q4 SC Last administered on 12:40; Admin Dose 6 UNIT; Start 02/23/17 at 05:00 Sodium Chloride (NS) 1,000 ml @ 40 mls/hr Q24H IV Last administered on 14:34; Admin Dose 40 MLS/HR; Start 02/23/17 at 14:30 Metoclopramide HCl (Reglan) 5 mg Q6 IV Last administered on 7/15/17at 12:53; Admin Dose 5 MG; Start 02/23/17 at 18:00 YULIANA SIMMONS Feb 26, 2017 17:35
--- NOTE | 2017-02-26 18:16 | CONS ---
Date/Time of Note Date/Time of Note DATE: 02/26/17 TIME: 18:04 Assessment/Plan Assessment/Plan Additional Assessment/Plan This is a 66-year-old patient with diabetes mellitus who was admitted first because of the osteomyelitis of the left great toe. Voiding course of treatment in the hospital patient had cardiopulmonary arrest 2. Ended up with respiratory failure on tracheostomy and ventilator supported. Meanwhile it was noticed that patient has a very large sacrococcygeal decubitus ulcer. Actually the onset is pressure necrosis is done to stage her bowel at this time. It has been treated by application of sentyl and dressing. For better management of the wound this wound needs surgical debridement in the operating room. I have discussed the mother with patient's son on the phone 2 days ago. He was supposed to check with his mother and let us know if they agree with the operation or not. I have informed the patient's son not due to the fact that patient has had 2 times cardiopulmonary arrest. And also has very severe aortic stenosis. Cardiology suggested there is a very high risk for this patient to perform operation. . The nurse notified me on the phone that the patient's son has come to the hospital and inform the nurses that they agree for operation. . We are planning to perform excisional debridement on Tuesday morning hopefully. Consultation Date/Type/Reason Admit Date/Time Dec 02, 2016 at 21:01 Initial Consult Date 12/08/16 Type of Consultation: id Referring Provider: VIET PARKER MD 24 HR Interval Summary Subjective hx not possible: pt non-verbal Exam/Review of Systems Vital Signs Vitals Vital Signs Date Time Temp Pulse Resp B/P Pulse Ox O2 Delivery O2 Flow Rate FiO2 02/26/17 17:15 64 16 98 30 02/26/17 16:07 98.8 87/37 Intake and Output 02/25/17 02/25/17 02/26/17 15:00 23:00 07:00 Intake Total 500 ml 760 ml 750 ml Output Total 2500 ml 200 ml 550 ml Balance -2000 ml 560 ml 200 ml Exam Patient vital signs are stable.non verbal. Patient is on ventilator through tracheostomy. Feeding continues via the G- tube. Heart regular lungs slightly decreased breathing sounds bases. Abdomen is soft. Extremity no pitting edema. Sacrococcygeal wound is unstageable at this time. Covered by black necrotic eschar ESCHAR. Results Result Diagram: 02/26/17 0533 02/26/17 0536 Results 24 hrs Laboratory Tests Test 02/25/17 20:29 02/25/17 21:35 02/26/17 00:50 02/26/17 05:33 Bedside Glucose 185 176 211 White Blood Count 10.1 Red Blood Count 2.97 L Hemoglobin 8.6 L Hematocrit 27.1 L Mean Corpuscular Volume 91.2 Mean Corpuscular Hemoglobin 29.0 Mean Corpuscular Hemoglobin Concent 31.7 L Red Cell Distribution Width 14.5 Platelet Count 200 Mean Platelet Volume 10.1 Neutrophils % 79.1 H Lymphocytes % 10.4 L Monocytes % 8.2 Eosinophils % 0.3 Basophils % 0.2 Nucleated Red Blood Cells % 0.0 Neutrophils # 8.0 H Lymphocytes # 1.1 Monocytes # 0.8 Eosinophils # 0.0 Basophils # 0.0 Nucleated Red Blood Cells # 0.0 Test 02/26/17 05:36 02/26/17 06:22 02/26/17 08:21 02/26/17 12:34 Sodium Level 149 H Potassium Level 3.7 Chloride Level 102 Carbon Dioxide Level 31 Anion Gap 20 H Blood Urea Nitrogen 50 H Creatinine 1.24 Glucose Level 155 Calcium Level 8.5 Bedside Glucose 174 190 214 Test 02/26/17 17:33 Bedside Glucose 191 Medications Medications Current Medications Ondansetron HCl (Zofran Inj) 4 mg Q6H PRN IV NAUSEA AND/OR VOMITING Last administered on 02/23/17 12:49; Admin Dose 4 MG; Start 12/02/16 at 22:30 Miscellaneous Information 1 ea NOTE XX ; Start 12/02/16 at 23:00 Glucose (Glutose) 15 gm Q15M PRN PO DECREASED GLUCOSE; Start 12/02/16 at 23:00 Glucose (Glutose) 22.5 gm Q15M PRN PO DECREASED GLUCOSE; Start 12/02/16 at 23: 00 Dextrose (D50w Syringe) 25 ml Q15M PRN IV DECREASED GLUCOSE Last administered on 02/24/17 05:56; Admin Dose 25 ML; Start 12/02/16 at 23:00 Dextrose (D50w Syringe) 50 ml Q15M PRN IV DECREASED GLUCOSE Last administered on 01/23/17 04:58; Admin Dose 50 ML; Start 12/02/16 at 23:00 Glucagon (Glucagen) 1 mg Q15M PRN IM DECREASED GLUCOSE; Start 12/02/16 at 23:00 Glucose (Glutose) 15 gm Q15M PRN BUCCAL DECREASED GLUCOSE; Start 12/02/16 at 23 :00 Acetaminophen (Tylenol Supp) 650 mg Q6H PRN [place] ELEVATED TEMPERATURE Last administered on 01/13/17 20:32; Admin Dose 650 MG; Start 12/09/16 at 17:00 Hydralazine HCl (Apresoline) 10 mg Q6H PRN IV SBP>150mm hg Last administered on 12/19/16 08:50; Admin Dose 10 MG; Start 12/11/16 at 10:30 Morphine Sulfate (morphine) 2 mg Q2H PRN IV PAIN LEVEL 4-7; Start 12/13/16 at 10 :00 Collagenase (Santyl) 1 applic DAILY TOP Last administered on 02/26/17 09:56; Admin Dose 1 APPLIC; Start 01/04/17 at 09:00 Metoprolol Tartrate (Lopressor) 5 mg Q4 PRN IV FOR H.R>110; Start 01/12/17 at 17:30 Acetaminophen (Tylenol Liquid) 650 mg Q6H PRN NGT PAIN AND OR ELEVATED TEMP Last administered on 02/25/17 17:51; Admin Dose 650 MG; Start 01/13/17 at 23:30 Acetaminophen/ Hydrocodone Bitart ([place] (5/325)) 1 tab Q6H PRN NGT PAIN LEVEL 4-7; Start 01/13/17 at 23:30 Levetiracetam (Keppra Liquid) 1,000 mg DAILY NGT Last administered on 09:55; Admin Dose 1,000 MG; Start 01/14/17 at 09:00 Meclizine HCl (Antivert) 25 mg TID PRN NGT dizziness; Start 01/13/17 at 20:00 Zolpidem Tartrate (Ambien) 5 mg HS PRN NGT INSOMNIA; Start 01/13/17 at 20:00 Metoprolol Tartrate (Lopressor) 12.5 mg BID NGT Last administered on 02/24/17 10:54; Admin Dose 12.5 MG; Start 01/24/17 at 21:00; Status Future Hold Nystatin (Nystatin Susp) 5 ml Q6 PO Last administered on 02/26/17 17:34; Admin Dose 5 ML; Start 01/31/17 at 12:00 Lansoprazole (Prevacid) 30 mg DAILY@06 GTB Last administered on 02/26/17 06:34 ; Admin Dose 30 MG; Start 02/09/17 at 06:00 Zinc Sulfate (Zinc Sulfate) 220 mg DAILY GTB Last administered on 02/26/17 09: 55; Admin Dose 220 MG; Start 02/14/17 at 15:00 Multivitamins (Multivitamin) 30 ml DAILY GTB Last administered on 02/26/17 09: 55; Admin Dose 30 ML; Start 02/14/17 at 16:30 Docusate Sodium (Colace Liquid Cup) 100 mg BID GTB Last administered on 09:55; Admin Dose 100 MG; Start 02/14/17 at 21:00 Apixaban (Eliquis) 2.5 mg BID GTB Last administered on 02/25/17 21:37; Admin Dose 2.5 MG; Start 02/14/17 at 21:00; Status Future hold Amiodarone HCl (Cordarone) 200 mg DAILY GTB Last administered on 02/26/17 09: 56; Admin Dose 200 MG; Start 02/19/17 at 09:00 Ascorbic Acid (Vitamin C) 500 mg DAILY GTB Last administered on 02/26/17 09:55 ; Admin Dose 500 MG; Start 02/22/17 at 09:00 Insulin Glargine (Lantus) 56 unit DAILY@20 SC Last administered on 02/25/17 21 :42; Admin Dose 56 UNIT; Start 02/22/17 at 20:00 Insulin Aspart NOVOLOG *MODERATE* ALGORI... Q4 SC Last administered on 17:35; Admin Dose 4 UNIT; Start 02/23/17 at 05:00 Sodium Chloride (NS) 1,000 ml @ 40 mls/hr Q24H IV Last administered on 14:34; Admin Dose 40 MLS/HR; Start 02/23/17 at 14:30 Metoclopramide HCl (Reglan) 5 mg Q6 IV Last administered on 02/26/17 17:34; Admin Dose 5 MG; Start 02/23/17 at 18:00 STACY DOHERTY MD Feb 26, 2017 18:15
[2017-02-26 18:43] LABS: INR 1.3; PROTIME 16.3 Sec (12.2-14.2); PT RATIO 1.3
[2017-02-26 18:44] LABS: PARTIAL THROMBOPLASTIN TIME 39.4 Sec (25.0-35.0)
[2017-02-26] MEDS: INSULIN GLARGINE [LANtus] 3 ML PEN SC SCH (20:25)
[2017-02-27] VITALS (25 sets, daily range): BP systolic 103–138; BP diastolic 47–85; PULSE 69–90; RESP 15–79
[2017-02-27] MEDS: INSULIN ASPART [NOVOLOG] 3 ML PEN SC SCH ×6 (00:27→21:00)
[2017-02-27] MEDS: NYSTATIN SUSP 5 ML CUP PO SCH ×4 (00:28→17:30)
[2017-02-27] MEDS: ACETAMINOPHEN 650MG/20.3ML CUP NGT PRN (00:28)
[2017-02-27] MEDS: METOCLOPRAMIDE 10 MG INJ IV SCH ×4 (00:28→17:30)
[2017-02-27] MEDS: ALBUTEROL 18 GM INHALER INH SCH ×4 (02:00→19:11)
[2017-02-27] MEDS: LANSOPRAZOLE 30 MG CAP GTB SCH (05:00)
[2017-02-27] MEDS: DOCUSATE SODIUM 10 MG/ML (10ML CUP) GTB SCH ×2 (09:02→20:57)
[2017-02-27] MEDS: LEVETIRACETAM (100 MG/ML) 5ML CUP NGT SCH (09:02)
[2017-02-27] MEDS: MULTIVITAMINS 30 ML CUP GTB SCH (09:03)
[2017-02-27] MEDS: ASCORBIC ACID 500 MG TAB GTB SCH (09:03)
[2017-02-27] MEDS: ZINC SULFATE 220 MG CAP GTB SCH (09:03)
[2017-02-27] MEDS: AMIODARONE 200 MG TAB GTB SCH (09:04)
[2017-02-27] MEDS: COLLAGENASE 30 GM TUBE TOP SCH (09:05)
--- NOTE | 2017-02-27 13:07 | CONS ---
Date/Time of Note Date/Time of Note DATE: 02/27/17 TIME: 13:06 Assessment/Plan Assessment/Plan Chief Complaint/Hosp Course - s/p recurrent sepsis due to pneumonia +/- funguria - treated with cefepime, tobramycin, and caspofungin - s/p recurrent pneumonia due to pseudomonas - s/p sepsis due to possible tracheobronchitis/pneumonia - funguria - treated with caspofungin - thrush, refractory to nystatin - recurrent cardiopulmonary arrest on 12/09/2016 and on 01/08/2017 - hypoxic respiratory failure, intubated for the 2nd time on 12/12/2016; extubated 12/18/2016; re-intubated for the 3rd time 01/08/2017, s/p tracheostomy 06/2017 - bleeding from trach site - resolved - acute on chronic anemia due to acute blood loss, requiring blood transfusion - 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 Blood cultures from HD catheter on 12/13/2016 are negative to date. 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 MRI on 12/06/2016 and bone scan on showed early OM of the distal phalanx of the left great toe and left fourth proximal phalanx. superficial swab grew inna only. At present, no e/o persistent infection - recurrent pleural effusion - s/p right pleural effusion s/p thoracentesis with .9L removed on 12/16/2016; ( Note: there is no pleural fluid cx since orders were placed after Right thoracentesis, and Left thoracentesis was not performed on 12/17/16 d/t insufficient fluid) - ARANZA on CKD that progressed to ESRD and started on HD from 12/09/2016 - oliguria - improved - A fib -> PAF - small nonreversible perfusion abnormality in the inferoapical and inferior carver; EF 36% per Lexiscan 12/24/2016 - severe , EF 40-45% per TTE 12/17/16 - DM - Hgb A1c 8.7% - HTN associated with DM - acute encephalopathy with anoxic brain injury - unstageable decubitus ulcer of coccyx, no evidence of infection - dysphagia s/p G-tube placement 02/08/2017 NOTE: Pt completed 6 weeks (12/03/2016-01/15/2017) of antibiotics to treat early OM of the distal phalanx of the left great toe and left fourth proximal phalanx ; s/p pip/tazo 12/03/16-01/08/17; linezolid 01/08/17-01/20/17; caspofungin 01/12/17-01/21/17 and 02/04/17-02/17/17; tobramycin 02/04/2017- 02/15/17 for pseudomonas; cefepime (02/02/17-02/18/17). recommendations: - monitor closely off abx - continue nystatin for thrush - wound care of the coccyx and upper back Problems: Consultation Date/Type/Reason Admit Date/Time Dec 02, 2016 at 21:01 Type of Consultation: id Referring Provider: VIET PARKER MD Exam/Review of Systems Vital Signs Vitals Vital Signs Date Time Temp Pulse Resp B/P Pulse Ox O2 Delivery O2 Flow Rate FiO2 02/27/17 12:32 80 02/27/17 11:18 98.4 20 137/59 99 02/27/17 11:15 30 02/27/17 04:00 Mechanical Ventilator Intake and Output 02/26/17 02/26/17 02/27/17 15:00 23:00 07:00 Intake Total 705 ml 1540 ml Output Total 400 ml 550 ml Balance 305 ml 990 ml Exam Constitutional: non-verbal Psych: nl mood/affect, no complaints Head: atraumatic, normocephalic, other (trach) Respiratory: clear to auscultation, normal air movement Cardiovascular: nl pulses, regular rate and rhythm Gastrointestinal: nl liver, spleen, non-tender, soft Results Result Diagram: 02/26/17 0533 02/26/17 0536 Results 24 hrs Laboratory Tests Test 02/26/17 17:33 02/26/17 18:18 02/26/17 20:16 02/27/17 00:26 Bedside Glucose 191 185 136 Prothrombin Time 16.3 H Prothrombin Time Ratio 1.3 INR International Normalized Ratio 1.30 Activated Partial Thromboplast Time 39.4 H Test 02/27/17 04:30 02/27/17 07:40 02/27/17 11:52 Bedside Glucose 147 123 118 Medications Medications Current Medications Ondansetron HCl (Zofran Inj) 4 mg Q6H PRN IV NAUSEA AND/OR VOMITING Last administered on 02/23/17 12:49; Admin Dose 4 MG; Start 12/02/16 at 22:30 Miscellaneous Information 1 ea NOTE XX ; Start 12/02/16 at 23:00 Glucose (Glutose) 15 gm Q15M PRN PO DECREASED GLUCOSE; Start 12/02/16 at 23:00 Glucose (Glutose) 22.5 gm Q15M PRN PO DECREASED GLUCOSE; Start 12/02/16 at 23: 00 Dextrose (D50w Syringe) 25 ml Q15M PRN IV DECREASED GLUCOSE Last administered on 02/24/17 05:56; Admin Dose 25 ML; Start 12/02/16 at 23:00 Dextrose (D50w Syringe) 50 ml Q15M PRN IV DECREASED GLUCOSE Last administered on 01/23/17 04:58; Admin Dose 50 ML; Start 12/02/16 at 23:00 Glucagon (Glucagen) 1 mg Q15M PRN IM DECREASED GLUCOSE; Start 12/02/16 at 23:00 Glucose (Glutose) 15 gm Q15M PRN BUCCAL DECREASED GLUCOSE; Start 12/02/16 at 23 :00 Acetaminophen (Tylenol Supp) [address] ELEVATED TEMPERATURE Last administered on 01/13/17 20:32; Admin Dose 650 MG; Start 12/09/16 at 17:00 Hydralazine HCl (Apresoline) 10 mg Q6H PRN IV SBP>150mm hg Last administered on 12/19/16 08:50; Admin Dose 10 MG; Start 12/11/16 at 10:30 Morphine Sulfate (morphine) 2 mg Q2H PRN IV PAIN LEVEL 4-7; Start 12/13/16 at 10 :00 Collagenase (Santyl) 1 applic DAILY TOP Last administered on 02/27/17 09:05; Admin Dose 1 APPLIC; Start 01/04/17 at 09:00 Metoprolol Tartrate (Lopressor) 5 mg Q4 PRN IV FOR H.R>110; Start 01/12/17 at 17:30 Acetaminophen (Tylenol Liquid) 650 mg Q6H PRN NGT PAIN AND OR ELEVATED TEMP Last administered on 02/27/17 00:28; Admin Dose 650 MG; Start 01/13/17 at 23:30 Acetaminophen/ Hydrocodone Bitart ([place] (5/325)) 1 tab Q6H PRN NGT PAIN LEVEL 4-7; Start 01/13/17 at 23:30 Levetiracetam (Keppra Liquid) 1,000 mg DAILY NGT Last administered on 09:02; Admin Dose 1,000 MG; Start 01/14/17 at 09:00 Meclizine HCl (Antivert) 25 mg TID PRN NGT dizziness; Start 01/13/17 at 20:00 Zolpidem Tartrate (Ambien) 5 mg HS PRN NGT INSOMNIA; Start 01/13/17 at 20:00 Metoprolol Tartrate (Lopressor) 12.5 mg BID NGT Last administered on 02/24/17 10:54; Admin Dose 12.5 MG; Start 01/24/17 at 21:00; Status Future Hold Nystatin (Nystatin Susp) 5 ml Q6 PO Last administered on 02/27/17 11:54; Admin Dose 5 ML; Start 01/31/17 at 12:00 Lansoprazole (Prevacid) 30 mg DAILY@06 GTB Last administered on 02/27/17 05:00 ; Admin Dose 30 MG; Start 02/09/17 at 06:00 Zinc Sulfate (Zinc Sulfate) 220 mg DAILY GTB Last administered on 02/27/17 09: 03; Admin Dose 220 MG; Start 02/14/17 at 15:00 Multivitamins (Multivitamin) 30 ml DAILY GTB Last administered on 02/27/17 09: 03; Admin Dose 30 ML; Start 02/14/17 at 16:30 Docusate Sodium (Colace Liquid Cup) 100 mg BID GTB Last administered on 09:02; Admin Dose 100 MG; Start 02/14/17 at 21:00 Apixaban (Eliquis) 2.5 mg BID GTB Last administered on 02/25/17 21:37; Admin Dose 2.5 MG; Start 02/14/17 at 21:00; Status Future hold Amiodarone HCl (Cordarone) 200 mg DAILY GTB Last administered on 02/27/17 09: 04; Admin Dose 200 MG; Start 02/19/17 at 09:00 Ascorbic Acid (Vitamin C) 500 mg DAILY GTB Last administered on 02/27/17 09:03 ; Admin Dose 500 MG; Start 02/22/17 at 09:00 Insulin Glargine (Lantus) 56 unit DAILY@20 SC Last administered on 02/26/17 20 :25; Admin Dose 56 UNIT; Start 02/22/17 at 20:00 Insulin Aspart NOVOLOG *MODERATE* ALGORI... Q4 SC Last administered on 04:35; Admin Dose 2 UNIT; Start 02/23/17 at 05:00 Sodium Chloride (NS) 1,000 ml @ 40 mls/hr Q24H IV Last administered on 14:34; Admin Dose 40 MLS/HR; Start 02/23/17 at 14:30 Metoclopramide HCl (Reglan) 5 mg Q6 IV Last administered on 02/27/17 11:54; Admin Dose 5 MG; Start 02/23/17 at 18:00 NIKHIL RAM MD Feb 27, 2017 13:07
--- NOTE | 2017-02-27 13:30 | CONS ---
Date/Time of Note Date/Time of Note DATE: 02/27/17 TIME: 13:28 Assessment/Plan Assessment/Plan Chief Complaint/Hosp Course IMPRESSION: 1. Atrial fibrillation-Having episodes of PAF with reasonable rate control. Currently remains in SR. Had pause approximately 4 seconds this am ? if was during suctioning. No recurrent pause since holding of BB 2. Hypotension-overall improved and stable 3. Abnormal electrocardiogram with inferolateral T-wave inversions. 4. Respiratory failure-s/p trach placement 5. Nonhealing toe ulceration-vascular following 6. Peripheral arterial disease by arterial ultrasound of the lower extremities this admission. 7. Diabetes mellitus. 8. Fevers. 9. Positive troponin-downtrended 10.Bradycardia-improved/stable 11.-severe by echo 12.Cardiomyopathy-EF 40-45% by echo/36% by stress with no ischemia but positive scar. EF <30% by echo post arrest 13.Encephalopathy-anoxic 14. s/p cardiopulmonary arrest 01/08 15. Pre-op-for debridemnt of decubitis ulcer- Patient at this time has no definite cardiac contraindication to proceeding to OR for debridement but is at high risk for CV complications due to severe and cardiomyopathy 16. Hypernatremia Recc: -Tele -serial ecg -HD for volume removal as tolerated ongoing today -Eliquis to be held in anticipation of upcoming surgery -Continue PO amio in attempt to maintain SR, daily and follow for any recurrent pauses -Will hold on afterload reduction given severe and thus fixed afterload at valve orifice -Continue to hold BB and follow for recurrent pause -Possible pnding debridement Problems: Consultation Date/Type/Reason Admit Date/Time Dec 02, 2016 at 21:01 Initial Consult Date 12/03/16 Type of Consultation: cardiology Reason for Consultation PAF Referring Provider: VIET PARKER MD Exam/Review of Systems Vital Signs Vitals Vital Signs Date Time Temp Pulse Resp B/P Pulse Ox O2 Delivery O2 Flow Rate FiO2 02/27/17 12:32 80 02/27/17 11:18 98.4 20 137/59 99 02/27/17 11:15 30 02/27/17 04:00 Mechanical Ventilator Intake and Output 02/26/17 02/26/17 02/27/17 15:00 23:00 07:00 Intake Total 705 ml 1540 ml Output Total 400 ml 550 ml Balance 305 ml 990 ml Exam Review of Systems: CONSTITUTIONAL: No fevers, chills. PULMONARY: No sob CARDIOVASCULAR: No chest pain/palpitations GASTROINTESTINAL: No nausea/vomiting. GENITOURINARY: No hematuria/dysuria. MUSCULOSKELETAL: No myagias/arthalgias. PSYCHIATRIC: The patient denies depression. NEUROLOGIC: No weakness Constitutional: alert Psych: no complaints Head: normocephalic ENMT: mucosa pink and moist Neck: jvd, supple Respiratory: diminished breath sounds (at bases/B) Cardiovascular: regular rate and rhythm Gastrointestinal: non-tender, soft Musculoskeletal: muscle tone (normal) Extremities: edema (none) Neurological: other (No focal deficits) Results Result Diagram: 02/26/17 0533 02/26/17 0536 Results 24 hrs Laboratory Tests Test 02/26/17 17:33 02/26/17 18:18 02/26/17 20:16 02/27/17 00:26 Bedside Glucose 191 185 136 Prothrombin Time 16.3 H Prothrombin Time Ratio 1.3 INR International Normalized Ratio 1.30 Activated Partial Thromboplast Time 39.4 H Test 02/27/17 04:30 02/27/17 07:40 02/27/17 11:52 Bedside Glucose 147 123 118 Medications Medications Current Medications Ondansetron HCl (Zofran Inj) 4 mg Q6H PRN IV NAUSEA AND/OR VOMITING Last administered on 02/23/17 12:49; Admin Dose 4 MG; Start 12/02/16 at 22:30 Miscellaneous Information 1 ea NOTE XX ; Start 12/02/16 at 23:00 Glucose (Glutose) 15 gm Q15M PRN PO DECREASED GLUCOSE; Start 12/02/16 at 23:00 Glucose (Glutose) 22.5 gm Q15M PRN PO DECREASED GLUCOSE; Start 12/02/16 at 23: 00 Dextrose (D50w Syringe) 25 ml Q15M PRN IV DECREASED GLUCOSE Last administered on 02/24/17 05:56; Admin Dose 25 ML; Start 12/02/16 at 23:00 Dextrose (D50w Syringe) 50 ml Q15M PRN IV DECREASED GLUCOSE Last administered on 01/23/17 04:58; Admin Dose 50 ML; Start 12/02/16 at 23:00 Glucagon (Glucagen) 1 mg Q15M PRN IM DECREASED GLUCOSE; Start 12/02/16 at 23:00 Glucose (Glutose) 15 gm Q15M PRN BUCCAL DECREASED GLUCOSE; Start 12/02/16 at 23 :00 Acetaminophen (Tylenol Supp) 650 mg Q6H PRN MD ELEVATED TEMPERATURE Last administered on 01/13/17 20:32; Admin Dose 650 MG; Start 12/09/16 at 17:00 Hydralazine HCl (Apresoline) 10 mg Q6H PRN IV SBP>150mm hg Last administered on 12/19/16 08:50; Admin Dose 10 MG; Start 12/11/16 at 10:30 Morphine Sulfate (morphine) 2 mg Q2H PRN IV PAIN LEVEL 4-7; Start 12/13/16 at 10 :00 Collagenase (Santyl) 1 applic DAILY TOP Last administered on 02/27/17 09:05; Admin Dose 1 APPLIC; Start 01/04/17 at 09:00 Metoprolol Tartrate (Lopressor) 5 mg Q4 PRN IV FOR H.R>110; Start 01/12/17 at 17:30 Acetaminophen (Tylenol Liquid) 650 mg Q6H PRN NGT PAIN AND OR ELEVATED TEMP Last administered on 02/27/17 00:28; Admin Dose 650 MG; Start 01/13/17 at 23:30 Acetaminophen/ Hydrocodone Bitart ([place] (5/325)) 1 tab Q6H PRN NGT PAIN LEVEL 4-7; Start 01/13/17 at 23:30 Levetiracetam (Keppra Liquid) 1,000 mg DAILY NGT Last administered on 09:02; Admin Dose 1,000 MG; Start 01/14/17 at 09:00 Meclizine HCl (Antivert) 25 mg TID PRN NGT dizziness; Start 01/13/17 at 20:00 Zolpidem Tartrate (Ambien) 5 mg HS PRN NGT INSOMNIA; Start 01/13/17 at 20:00 Metoprolol Tartrate (Lopressor) 12.5 mg BID NGT Last administered on 02/24/17 10:54; Admin Dose 12.5 MG; Start 01/24/17 at 21:00; Status Future Hold Nystatin (Nystatin Susp) 5 ml Q6 PO Last administered on 02/27/17 11:54; Admin Dose 5 ML; Start 01/31/17 at 12:00 Lansoprazole (Prevacid) 30 mg DAILY@06 GTB Last administered on 02/27/17 05:00 ; Admin Dose 30 MG; Start 02/09/17 at 06:00 Zinc Sulfate (Zinc Sulfate) 220 mg DAILY GTB Last administered on 02/27/17 09: 03; Admin Dose 220 MG; Start 02/14/17 at 15:00 Multivitamins (Multivitamin) 30 ml DAILY GTB Last administered on 02/27/17 09: 03; Admin Dose 30 ML; Start 02/14/17 at 16:30 Docusate Sodium (Colace Liquid Cup) 100 mg BID GTB Last administered on 09:02; Admin Dose 100 MG; Start 02/14/17 at 21:00 Apixaban (Eliquis) 2.5 mg BID GTB Last administered on 02/25/17 21:37; Admin Dose 2.5 MG; Start 02/14/17 at 21:00; Status Future hold Amiodarone HCl (Cordarone) 200 mg DAILY GTB Last administered on 02/27/17 09: 04; Admin Dose 200 MG; Start 02/19/17 at 09:00 Ascorbic Acid (Vitamin C) 500 mg DAILY GTB Last administered on 02/27/17 09:03 ; Admin Dose 500 MG; Start 02/22/17 at 09:00 Insulin Glargine (Lantus) 56 unit DAILY@20 SC Last administered on 02/26/17 20 :25; Admin Dose 56 UNIT; Start 02/22/17 at 20:00 Insulin Aspart NOVOLOG *MODERATE* ALGORI... Q4 SC Last administered on 04:35; Admin Dose 2 UNIT; Start 02/23/17 at 05:00 Sodium Chloride (NS) 1,000 ml @ 40 mls/hr Q24H IV Last administered on 14:34; Admin Dose 40 MLS/HR; Start 02/23/17 at 14:30 Metoclopramide HCl (Reglan) 5 mg Q6 IV Last administered on 02/27/17 11:54; Admin Dose 5 MG; Start 02/23/17 at 18:00 VICENTE LESLIE 16, 2017 13:30
--- NOTE | 2017-02-27 14:55 | PN ---
Date/Time of Note Date/Time of Note DATE: 02/27/17 TIME: 14:54 Assessment/Plan VTE Prophylaxis VTE Prophylaxis Intervention: other Lines/Catheters IV [facility] Type (from [facility]): Peripheral IV Urinary Cath still in place: No Assessment/Plan Assessment/Plan - Sacral decubitus ulcer, Dr. Ureña is following in surgical consultation for possible debridement. Continue multivitamins and zinc sulfate. - possible schedule for Tuesday and son is still deciding. - Possible recurrent sepsis, resolving. Continue antibiotics per ID. Dr Celena pritchard is following infection disease consultation. - Dysphagia. S/p G-tube by Dr. Smith. Continue G-tube feeding, monitor residual. - Anemia of blood loss. Continue to monitor H&H, transfuse as needed. - Status post cardiopulmonary arrest on 12/09/2016 and 01/08/2017. Continue ventilatory support. - Anoxic encephalopathy. Continue Keppra. - Status post tracheostomy on 01/23/2017. Continue tracheostomy care. - End-stage renal disease. Continue hemodialysis per nephrology. - Paroxysmal atrial fibrillation. Continue Eliquis. - Diabetes mellitus type 2. Continue Lantus and NovoLog with sliding scale coverage with Accu-Cheks q. 4 hours. - Diabetic foot ulcer. Continue current wound care. - Osteomyelitis of the distal phalanx of the great left toe. Completed treatment for antibiotics. Continue sequential compression device for deep venous thrombosis prophylaxis and Protonix for peptic ulcer disease prophylaxis. Further recommendations based on clinical course. Plan of care discussed with Dr. Heredia. Subjective 24 Hr Interval Summary Constitutional: requiring IVF, requiring O2 Exam/Review of Systems Vital Signs Vitals Vital Signs Date Time Temp Pulse Resp B/P Pulse Ox O2 Delivery O2 Flow Rate FiO2 02/27/17 13:15 79 79 98 30 02/27/17 11:18 98.4 137/59 02/27/17 04:00 Mechanical Ventilator Intake and Output 02/26/17 02/26/17 02/27/17 15:00 23:00 07:00 Intake Total 705 ml 1540 ml Output Total 400 ml 550 ml Balance 305 ml 990 ml Exam Constitutional: non-verbal Respiratory: diminished breath sounds Cardiovascular: nl pulses, regular rate and rhythm Gastrointestinal: non-tender, other, soft Neurological: unresponsive Results Result Diagram: 02/26/17 0533 02/26/17 0536 Results 24 hrs Laboratory Tests Test 02/26/17 17:33 02/26/17 18:18 02/26/17 20:16 02/27/17 00:26 Bedside Glucose 191 185 136 Prothrombin Time 16.3 H Prothrombin Time Ratio 1.3 INR International Normalized Ratio 1.30 Activated Partial Thromboplast Time 39.4 H Test 02/27/17 04:30 02/27/17 07:40 02/27/17 11:52 Bedside Glucose 147 123 118 Medications Medications Current Medications Ondansetron HCl (Zofran Inj) 4 mg Q6H PRN IV NAUSEA AND/OR VOMITING Last administered on 02/23/17 12:49; Admin Dose 4 MG; Start 12/02/16 at 22:30 Miscellaneous Information 1 ea NOTE XX ; Start 12/02/16 at 23:00 Glucose (Glutose) 15 gm Q15M PRN PO DECREASED GLUCOSE; Start 12/02/16 at 23:00 Glucose (Glutose) 22.5 gm Q15M PRN PO DECREASED GLUCOSE; Start 12/02/16 at 23: 00 Dextrose (D50w Syringe) 25 ml Q15M PRN IV DECREASED GLUCOSE Last administered on 02/24/17 05:56; Admin Dose 25 ML; Start 12/02/16 at 23:00 Dextrose (D50w Syringe) 50 ml Q15M PRN IV DECREASED GLUCOSE Last administered on 01/23/17 04:58; Admin Dose 50 ML; Start 12/02/16 at 23:00 Glucagon (Glucagen) 1 mg Q15M PRN IM DECREASED GLUCOSE; Start 12/02/16 at 23:00 Glucose (Glutose) 15 gm Q15M PRN BUCCAL DECREASED GLUCOSE; Start 12/02/16 at 23 :00 Acetaminophen (Tylenol Supp) 650 mg Q6H PRN [place] ELEVATED TEMPERATURE Last administered on 01/13/17 20:32; Admin Dose 650 MG; Start 12/09/16 at 17:00 Hydralazine HCl (Apresoline) 10 mg Q6H PRN IV SBP>150mm hg Last administered on 12/19/16 08:50; Admin Dose 10 MG; Start 12/11/16 at 10:30 Morphine Sulfate (morphine) 2 mg Q2H PRN IV PAIN LEVEL 4-7; Start 12/13/16 at 10 :00 Collagenase (Santyl) 1 applic DAILY TOP Last administered on 02/27/17 09:05; Admin Dose 1 APPLIC; Start 01/04/17 at 09:00 Metoprolol Tartrate (Lopressor) 5 mg Q4 PRN IV FOR H.R>110; Start 01/12/17 at 17:30 Acetaminophen (Tylenol Liquid) 650 mg Q6H PRN NGT PAIN AND OR ELEVATED TEMP Last administered on 02/27/17 00:28; Admin Dose 650 MG; Start 01/13/17 at 23:30 Acetaminophen/ Hydrocodone Bitart ([place] (5/325)) 1 tab Q6H PRN NGT PAIN LEVEL 4-7; Start 01/13/17 at 23:30 Levetiracetam (Keppra Liquid) 1,000 mg DAILY NGT Last administered on 09:02; Admin Dose 1,000 MG; Start 01/14/17 at 09:00 Meclizine HCl (Antivert) 25 mg TID PRN NGT dizziness; Start 01/13/17 at 20:00 Zolpidem Tartrate (Ambien) 5 mg HS PRN NGT INSOMNIA; Start 01/13/17 at 20:00 Metoprolol Tartrate (Lopressor) 12.5 mg BID NGT Last administered on 02/24/17 10:54; Admin Dose 12.5 MG; Start 01/24/17 at 21:00; Status Future Hold Nystatin (Nystatin Susp) 5 ml Q6 PO Last administered on 02/27/17 11:54; Admin Dose 5 ML; Start 01/31/17 at 12:00 Lansoprazole (Prevacid) 30 mg DAILY@06 GTB Last administered on 02/27/17 05:00 ; Admin Dose 30 MG; Start 02/09/17 at 06:00 Zinc Sulfate (Zinc Sulfate) 220 mg DAILY GTB Last administered on 02/27/17 09: 03; Admin Dose 220 MG; Start 02/14/17 at 15:00 Multivitamins (Multivitamin) 30 ml DAILY GTB Last administered on 02/27/17 09: 03; Admin Dose 30 ML; Start 02/14/17 at 16:30 Docusate Sodium (Colace Liquid Cup) 100 mg BID GTB Last administered on 7/16/ 17at 09:02; Admin Dose 100 MG; Start 02/14/17 at 21:00 Apixaban (Eliquis) 2.5 mg BID GTB Last administered on 02/25/17 21:37; Admin Dose 2.5 MG; Start 02/14/17 at 21:00; Status Future hold Amiodarone HCl (Cordarone) 200 mg DAILY GTB Last administered on 02/27/17 09: 04; Admin Dose 200 MG; Start 02/19/17 at 09:00 Ascorbic Acid (Vitamin C) 500 mg DAILY GTB Last administered on 02/27/17 09:03 ; Admin Dose 500 MG; Start 02/22/17 at 09:00 Insulin Glargine (Lantus) 56 unit DAILY@20 SC Last administered on 02/26/17 20 :25; Admin Dose 56 UNIT; Start 02/22/17 at 20:00 Insulin Aspart NOVOLOG *MODERATE* ALGORI... Q4 SC Last administered on 04:35; Admin Dose 2 UNIT; Start 02/23/17 at 05:00 Sodium Chloride (NS) 1,000 ml @ 40 mls/hr Q24H IV Last administered on 14:34; Admin Dose 40 MLS/HR; Start 02/23/17 at 14:30 Metoclopramide HCl (Reglan) 5 mg Q6 IV Last administered on 02/27/17 11:54; Admin Dose 5 MG; Start 02/23/17 at 18:00 YULIANA SIMMONS Feb 27, 2017 14:55
[2017-02-27] MEDS: SOD CHLORIDE 0.9% 1,000 ML IV SCH (15:46)
[2017-02-27] MEDS ORDERED: PHYTONADIONE 10 MG in DEXTROSE 5% 50 ML IVPB ONE (18:30)
--- NOTE | 2017-02-27 18:52 | PN ---
Date/Time of Note Date/Time of Note DATE: 02/27/17 TIME: 18:35 Assessment/Plan VTE Prophylaxis VTE Prophylaxis Intervention: other Lines/Catheters IV [facility] Type (from [facility]): Peripheral IV Urinary Cath still in place: No Assessment/Plan Assessment/Plan 66 years old patient in anoxic encephalopathy stage, on ventilator. No communication. Surgical consultation was requested for management of necrotic sacrococcygeal wound area. Patient has a large area of unstageable sacrococcygeal wound probably 8 cm x 9 cm and a depth of about 1 cm. Patient is diabetic also has problem with the heart including severe aortic stenosis this makes him at high risk case. . I believe patient would benefit from excisional debridement of the wound. I have talked this case with patient's son Larry. He is aware of the high risk and will signed the consent on Tuesday we are planning to proceed with operation on Tuesday.. Meanwhile because of the increased PT I gave the patient 10 mg of vitamin K IV today. Will preserve 2 units of FFP and 2. Toprol-XL for operation. Since the patient is on hemodialysis we will check basic metabolic panel tomorrow morning before operation Subjective 24 Hr Interval Summary Free Text/Dictation Dr. Doherty. Dictating follow-up progress note. No communication patient is in the phase of anoxic encephalopathy and is on the ventilator G-tube feeding is running. Exam/Review of Systems Vital Signs Vitals Vital Signs Date Time Temp Pulse Resp B/P Pulse Ox O2 Delivery O2 Flow Rate FiO2 02/27/17 17:49 78 21 99 30 02/27/17 15:29 98.8 103/47 02/27/17 04:00 Mechanical Ventilator Intake and Output 02/26/17 02/26/17 02/27/17 15:00 23:00 07:00 Intake Total 705 ml 1540 ml Output Total 400 ml 550 ml Balance 305 ml 990 ml Exam Vital sign is stable. Patient on ventilator. No communication. Abdomen is soft. FiO2 on ventilator 30% oxygen. Hemoglobin is 8.6 hematocrit 27.1. Platelets 200. INR is 1.30. 10 mg of vitamin K IV was ordered stat. Position of the patient changed to a lateral to examine the sacrococcygeal wound. Still it is unstageable large area of black necrotic eschar the lower edge of the wound from anus is about 4 cm. Results Result Diagram: 02/26/17 0533 02/26/17 0536 Results 24 hrs Laboratory Tests Test 02/26/17 20:16 02/27/17 00:26 02/27/17 04:30 02/27/17 07:40 Bedside Glucose 185 136 147 123 Test 02/27/17 11:52 02/27/17 17:28 Bedside Glucose 118 143 Medications Medications Current Medications Ondansetron HCl (Zofran Inj) 4 mg Q6H PRN IV NAUSEA AND/OR VOMITING Last administered on 02/23/17 12:49; Admin Dose 4 MG; Start 12/02/16 at 22:30 Miscellaneous Information 1 ea NOTE XX ; Start 12/02/16 at 23:00 Glucose (Glutose) 15 gm Q15M PRN PO DECREASED GLUCOSE; Start 12/02/16 at 23:00 Glucose (Glutose) 22.5 gm Q15M PRN PO DECREASED GLUCOSE; Start 12/02/16 at 23: 00 Dextrose (D50w Syringe) 25 ml Q15M PRN IV DECREASED GLUCOSE Last administered on 02/24/17 05:56; Admin Dose 25 ML; Start 12/02/16 at 23:00 Dextrose (D50w Syringe) 50 ml Q15M PRN IV DECREASED GLUCOSE Last administered on 01/23/17 04:58; Admin Dose 50 ML; Start 12/02/16 at 23:00 Glucagon (Glucagen) 1 mg Q15M PRN IM DECREASED GLUCOSE; Start 12/02/16 at 23:00 Glucose (Glutose) 15 gm Q15M PRN BUCCAL DECREASED GLUCOSE; Start 12/02/16 at 23 :00 Acetaminophen (Tylenol Supp) 650 mg Q6H PRN [place] ELEVATED TEMPERATURE Last administered on 01/13/17 20:32; Admin Dose 650 MG; Start 12/09/16 at 17:00 Hydralazine HCl (Apresoline) 10 mg Q6H PRN IV SBP>150mm hg Last administered on 12/19/16 08:50; Admin Dose 10 MG; Start 12/11/16 at 10:30 Morphine Sulfate (morphine) 2 mg Q2H PRN IV PAIN LEVEL 4-7; Start 12/13/16 at 10 :00 Collagenase (Santyl) 1 applic DAILY TOP Last administered on 02/27/17 09:05; Admin Dose 1 APPLIC; Start 01/04/17 at 09:00 Metoprolol Tartrate (Lopressor) 5 mg Q4 PRN IV FOR H.R>110; Start 01/12/17 at 17:30 Acetaminophen (Tylenol Liquid) 650 mg Q6H PRN NGT PAIN AND OR ELEVATED TEMP Last administered on 02/27/17 00:28; Admin Dose 650 MG; Start 01/13/17 at 23:30 Acetaminophen/ Hydrocodone Bitart ([place] (5/325)) 1 tab Q6H PRN NGT PAIN LEVEL 4-7; Start 01/13/17 at 23:30 Levetiracetam (Keppra Liquid) 1,000 mg DAILY NGT Last administered on 09:02; Admin Dose 1,000 MG; Start 01/14/17 at 09:00 Meclizine HCl (Antivert) 25 mg TID PRN NGT dizziness; Start 01/13/17 at 20:00 Zolpidem Tartrate (Ambien) 5 mg HS PRN NGT INSOMNIA; Start 01/13/17 at 20:00 Metoprolol Tartrate (Lopressor) 12.5 mg BID NGT Last administered on 02/24/17 10:54; Admin Dose 12.5 MG; Start 01/24/17 at 21:00; Status Future Hold Nystatin (Nystatin Susp) 5 ml Q6 PO Last administered on 02/27/17 17:30; Admin Dose 5 ML; Start 01/31/17 at 12:00 Lansoprazole (Prevacid) 30 mg DAILY@06 GTB Last administered on 02/27/17 05:00 ; Admin Dose 30 MG; Start 02/09/17 at 06:00 Zinc Sulfate (Zinc Sulfate) 220 mg DAILY GTB Last administered on 02/27/17 09: 03; Admin Dose 220 MG; Start 02/14/17 at 15:00 Multivitamins (Multivitamin) 30 ml DAILY GTB Last administered on 02/27/17 09: 03; Admin Dose 30 ML; Start 02/14/17 at 16:30 Docusate Sodium (Colace Liquid Cup) 100 mg BID GTB Last administered on 09:02; Admin Dose 100 MG; Start 02/14/17 at 21:00 Apixaban (Eliquis) 2.5 mg BID GTB Last administered on 02/25/17 21:37; Admin Dose 2.5 MG; Start 02/14/17 at 21:00; Status Future hold Amiodarone HCl (Cordarone) 200 mg DAILY GTB Last administered on 02/27/17 09: 04; Admin Dose 200 MG; Start 02/19/17 at 09:00 Ascorbic Acid (Vitamin C) 500 mg DAILY GTB Last administered on 02/27/17 09:03 ; Admin Dose 500 MG; Start 02/22/17 at 09:00 Insulin Glargine (Lantus) 56 unit DAILY@20 SC Last administered on 02/26/17 20 :25; Admin Dose 56 UNIT; Start 02/22/17 at 20:00 Insulin Aspart NOVOLOG *MODERATE* ALGORI... Q4 SC Last administered on 17:32; Admin Dose 2 UNIT; Start 02/23/17 at 05:00 Sodium Chloride (NS) 1,000 ml @ 40 mls/hr Q24H IV Last administered on 15:46; Admin Dose 40 MLS/HR; Start 02/23/17 at 14:30 Metoclopramide HCl 5 mg 5 mg Q6 IV Last administered on 02/27/17 17:30; Admin Dose 5 MG; Start 02/23/17 at 18:00 Phytonadione/ Dextrose (Vitamin K/D5W) 51 ml @ 102 mls/hr ONCE ONCE IVPB ; Start 02/27/17 at 18:30; Stop 02/27/17 at 18:59 STACY DOHERTY MD Feb 27, 2017 18:49
[2017-02-27] MEDS: INSULIN GLARGINE [LANtus] 3 ML PEN SC SCH (20:59)
[2017-02-28] VITALS (31 sets, daily range): BP systolic 96–158; BP diastolic 51–77; PULSE 68–84; RESP 15–21
[2017-02-28] MEDS: METOCLOPRAMIDE 10 MG INJ IV SCH ×4 (01:01→17:49)
[2017-02-28] MEDS: NYSTATIN SUSP 5 ML CUP PO SCH ×4 (01:01→17:49)
[2017-02-28] MEDS: INSULIN ASPART [NOVOLOG] 3 ML PEN SC SCH ×6 (01:05→20:39)
[2017-02-28] MEDS: ALBUTEROL 18 GM INHALER INH SCH ×4 (01:07→19:51)
[2017-02-28] MEDS: LANSOPRAZOLE 30 MG CAP GTB SCH (05:33)
[2017-02-28 07:23] LABS: ADD SCAN DIFF NO
[2017-02-28 07:29] LABS: BASOPHILS % 0.1 % (0.0-2.0); EOSINOPHILS # 0.1 10^3/ul (0.0-0.5); EOSINOPHILS % 0.5 % (0.0-7.0); HEMATOCRIT 24.2 % (42.0-52.0); HEMOGLOBIN 7.5 g/dl (14.0-18.0); LYMPHOCYTES # 0.8 10^3/ul (0.8-2.9); MEAN CORPUSCULAR HEMOGLOBIN 28.7 pg (29.0-33.0); MEAN CORPUSCULAR VOLUME 92.7 fl (82.0-101.0); MEAN PLATELET VOLUME 9.9 fl (7.4-10.4); MONOCYTE # 0.6 10^3/ul (0.3-0.9); MONOCYTES % 6.4 % (0.0-11.0); NEUTROPHIL # 8.2 10^3/ul (1.6-7.5); NEUTROPHILS % 83.5 % (39.0-77.0); PLATELET COUNT 211 10^3/UL (140-415); RED BLOOD COUNT 2.61 10^6/ul (4.70-6.10); RED CELL DISTRIBUTION WIDTH 14.5 % (11.5-14.5); WHITE BLOOD COUNT 9.9 10^3/ul (4.8-10.8)
[2017-02-28 07:41] LABS: INR 1.26; PROTIME 15.9 Sec (12.2-14.2); PT RATIO 1.2
[2017-02-28 07:42] LABS: PARTIAL THROMBOPLASTIN TIME 38.9 Sec (25.0-35.0)
[2017-02-28 08:35] LABS: CALCIUM 8.1 mg/dl (8.4-10.2); CREATININE 1.11 mg/dl (0.61-1.24); POTASSIUM 3.9 mmol/L (3.5-5.1)
[2017-02-28] MEDS: DOCUSATE SODIUM 10 MG/ML (10ML CUP) GTB SCH ×2 (09:31→20:32)
[2017-02-28] MEDS: MULTIVITAMINS 30 ML CUP GTB SCH (09:31)
[2017-02-28] MEDS: ASCORBIC ACID 500 MG TAB GTB SCH (09:31)
[2017-02-28] MEDS: LEVETIRACETAM (100 MG/ML) 5ML CUP NGT SCH (09:31)
[2017-02-28] MEDS: ZINC SULFATE 220 MG CAP GTB SCH (09:31)
[2017-02-28] MEDS: AMIODARONE 200 MG TAB GTB SCH (09:35)
[2017-02-28] MEDS: COLLAGENASE 30 GM TUBE TOP SCH (09:37)
--- NOTE | 2017-02-28 11:45 | CONS ---
Date/Time of Note Date/Time of Note DATE: 02/28/17 TIME: 11:42 Assessment/Plan Assessment/Plan Chief Complaint/Hosp Course IMPRESSION: 1. Atrial fibrillation-Having episodes of PAF with reasonable rate control. Currently remains in SR. Had pause approximately 4 seconds this am ? if was during suctioning. No recurrent pause since holding of BB 2. Hypotension-overall improved and stable 3. Abnormal electrocardiogram with inferolateral T-wave inversions. 4. Respiratory failure-s/p trach placement 5. Nonhealing toe ulceration-vascular following 6. Peripheral arterial disease by arterial ultrasound of the lower extremities this admission. 7. Diabetes mellitus. 8. Fevers. 9. Positive troponin-downtrended 10.Bradycardia-improved/stable 11.-severe by echo 12.Cardiomyopathy-EF 40-45% by echo/36% by stress with no ischemia but positive scar. EF <30% by echo post arrest 13.Encephalopathy-anoxic 14. s/p cardiopulmonary arrest 01/08 15. Pre-op-for debridemnt of decubitis ulcer- Patient at this time has no definite cardiac contraindication to proceeding to OR for debridement but is at high risk for CV complications due to severe and cardiomyopathy 16. Hypernatremia Recc: -Tele -serial ecg -HD for volume removal as tolerated ongoing today -Eliquis to be held in anticipation of upcoming surgery -Continue PO amio in attempt to maintain SR, daily and follow for any recurrent pauses -Will hold on afterload reduction given severe and thus fixed afterload at valve orifice -Continue to hold BB and follow for recurrent pause -Possible pnding debridement today/check post-op ecg Problems: Consultation Date/Type/Reason Admit Date/Time Dec 02, 2016 at 21:01 Initial Consult Date 12/03/16 Type of Consultation: cardiology Reason for Consultation PAF//cardiomyopathy Referring Provider: VIET PARKER MD Exam/Review of Systems Vital Signs Vitals Vital Signs Date Time Temp Pulse Resp B/P Pulse Ox O2 Delivery O2 Flow Rate FiO2 02/28/17 11:32 98.8 85 21 104/53 98 02/28/17 11:25 30 02/27/17 04:00 Mechanical Ventilator Intake and Output 02/27/17 02/27/17 02/28/17 15:00 23:00 07:00 Intake Total 1010 ml 475 ml Output Total 800 ml 350 ml Balance 210 ml 125 ml Exam Review of Systems: CONSTITUTIONAL: No fevers, chills. PULMONARY: No sob CARDIOVASCULAR: No chest pain/palpitations GASTROINTESTINAL: No nausea/vomiting. GENITOURINARY: No hematuria/dysuria. MUSCULOSKELETAL: No myagias/arthalgias. PSYCHIATRIC: The patient denies depression. NEUROLOGIC: No weakness Constitutional: alert Psych: no complaints Head: normocephalic ENMT: mucosa pink and moist Neck: jvd (8-9 cm water), supple Respiratory: diminished breath sounds (at bases/B) Cardiovascular: regular rate and rhythm Gastrointestinal: non-tender, soft Musculoskeletal: muscle tone (normal) Extremities: edema (none) Neurological: other (No focal deficits) Results Result Diagram: 02/28/1715 02/28/1715 Results 24 hrs Laboratory Tests Test 02/27/17 11:52 02/27/17 17:28 02/27/17 20:56 02/28/17 01:02 Bedside Glucose 118 143 167 163 Test 02/28/17 05:32 02/28/17 06:15 02/28/17 08:24 Bedside Glucose 120 153 White Blood Count 9.9 Red Blood Count 2.61 L Hemoglobin 7.5 L Hematocrit 24.2 L Mean Corpuscular Volume 92.7 Mean Corpuscular Hemoglobin 28.7 L Mean Corpuscular Hemoglobin Concent 31.0 L Red Cell Distribution Width 14.5 Platelet Count 211 Mean Platelet Volume 9.9 Neutrophils % 83.5 H Lymphocytes % 8.0 L Monocytes % 6.4 Eosinophils % 0.5 Basophils % 0.1 Nucleated Red Blood Cells % 0.0 Neutrophils # 8.2 H Lymphocytes # 0.8 Monocytes # 0.6 Eosinophils # 0.1 Basophils # 0.0 Nucleated Red Blood Cells # 0.0 Prothrombin Time 15.9 H Prothrombin Time Ratio 1.2 INR International Normalized Ratio 1.26 Activated Partial Thromboplast Time 38.9 H Sodium Level 150 H Potassium Level 3.9 Chloride Level 106 Carbon Dioxide Level 30 Anion Gap 18 H Blood Urea Nitrogen 66 H Creatinine 1.11 Glucose Level 106 Calcium Level 8.1 L Medications Medications Current Medications Ondansetron HCl (Zofran Inj) 4 mg Q6H PRN IV NAUSEA AND/OR VOMITING Last administered on 02/23/17 12:49; Admin Dose 4 MG; Start 12/02/16 at 22:30 Miscellaneous Information 1 ea NOTE XX ; Start 12/02/16 at 23:00 Glucose (Glutose) 15 gm Q15M PRN PO DECREASED GLUCOSE; Start 12/02/16 at 23:00 Glucose (Glutose) 22.5 gm Q15M PRN PO DECREASED GLUCOSE; Start 12/02/16 at 23: 00 Dextrose (D50w Syringe) 25 ml Q15M PRN IV DECREASED GLUCOSE Last administered on 02/24/17 05:56; Admin Dose 25 ML; Start 12/02/16 at 23:00 Dextrose (D50w Syringe) 50 ml Q15M PRN IV DECREASED GLUCOSE Last administered on 01/23/17 04:58; Admin Dose 50 ML; Start 12/02/16 at 23:00 Glucagon (Glucagen) 1 mg Q15M PRN IM DECREASED GLUCOSE; Start 12/02/16 at 23:00 Glucose (Glutose) 15 gm Q15M PRN BUCCAL DECREASED GLUCOSE; Start 12/02/16 at 23 :00 Acetaminophen (Tylenol Supp) 650 mg Q6H PRN [place] ELEVATED TEMPERATURE Last administered on 01/13/17 20:32; Admin Dose 650 MG; Start 12/09/16 at 17:00 Hydralazine HCl (Apresoline) 10 mg Q6H PRN IV SBP>150mm hg Last administered on 12/19/16 08:50; Admin Dose 10 MG; Start 12/11/16 at 10:30 Morphine Sulfate (morphine) 2 mg Q2H PRN IV PAIN LEVEL 4-7; Start 12/13/16 at 10 :00 Collagenase (Santyl) 1 applic DAILY TOP Last administered on 02/28/17 09:37; Admin Dose 1 APPLIC; Start 01/04/17 at 09:00 Metoprolol Tartrate (Lopressor) 5 mg Q4 PRN IV FOR H.R>110; Start 01/12/17 at 17:30 Acetaminophen (Tylenol Liquid) 650 mg Q6H PRN NGT PAIN AND OR ELEVATED TEMP Last administered on 02/27/17 00:28; Admin Dose 650 MG; Start 01/13/17 at 23:30 Acetaminophen/ Hydrocodone Bitart ([place] (5/325)) 1 tab Q6H PRN NGT PAIN LEVEL 4-7; Start 01/13/17 at 23:30 Levetiracetam (Keppra Liquid) 1,000 mg DAILY NGT Last administered on 09:31; Admin Dose 1,000 MG; Start 01/14/17 at 09:00 Meclizine HCl (Antivert) 25 mg TID PRN NGT dizziness; Start 01/13/17 at 20:00 Zolpidem Tartrate (Ambien) 5 mg HS PRN NGT INSOMNIA; Start 01/13/17 at 20:00 Metoprolol Tartrate (Lopressor) 12.5 mg BID NGT Last administered on 02/24/17 10:54; Admin Dose 12.5 MG; Start 01/24/17 at 21:00; Status Future Hold Nystatin (Nystatin Susp) 5 ml Q6 PO Last administered on 02/28/17 05:33; Admin Dose 5 ML; Start 01/31/17 at 12:00 Lansoprazole (Prevacid) 30 mg DAILY@06 GTB Last administered on 02/28/17 05:33 ; Admin Dose 30 MG; Start 02/09/17 at 06:00 Zinc Sulfate (Zinc Sulfate) 220 mg DAILY GTB Last administered on 02/28/17 09: 31; Admin Dose 220 MG; Start 02/14/17 at 15:00 Multivitamins (Multivitamin) 30 ml DAILY GTB Last administered on 02/28/17 09: 31; Admin Dose 30 ML; Start 02/14/17 at 16:30 Docusate Sodium (Colace Liquid Cup) 100 mg BID GTB Last administered on 09:31; Admin Dose 100 MG; Start 02/14/17 at 21:00 Apixaban (Eliquis) 2.5 mg BID GTB Last administered on 02/25/17 21:37; Admin Dose 2.5 MG; Start 02/14/17 at 21:00; Status Future hold Amiodarone HCl (Cordarone) 200 mg DAILY GTB Last administered on 02/28/17 09: 35; Admin Dose 200 MG; Start 02/19/17 at 09:00 Ascorbic Acid (Vitamin C) 500 mg DAILY GTB Last administered on 02/28/17 09:31 ; Admin Dose 500 MG; Start 02/22/17 at 09:00 Insulin Glargine (Lantus) 56 unit DAILY@20 SC Last administered on 02/27/17 20 :59; Admin Dose 56 UNIT; Start 02/22/17 at 20:00 Insulin Aspart NOVOLOG *MODERATE* ALGORI... Q4 SC Last administered on 01:05; Admin Dose 2 UNIT; Start 02/23/17 at 05:00 Sodium Chloride (NS) 1,000 ml @ 40 mls/hr Q24H IV Last administered on 15:46; Admin Dose 40 MLS/HR; Start 02/23/17 at 14:30 Metoclopramide HCl (Reglan) 5 mg Q6 IV Last administered on 02/28/17 05:33; Admin Dose 5 MG; Start 02/23/17 at 18:00 VICENTE LESLIE Feb 28, 2017 11:45
--- NOTE | 2017-02-28 13:10 | CONS ---
DATE OF ADMISSION: 12/02/2016 DATE OF CONSULTATION: 02/22/2017 REQUESTING PHYSICIAN: . REASON FOR CONSULTATION: Evaluation and management of sacral coccygeal bed sore. Thank you, Dr. Heredia for consultation. This is a 66-year-old gentleman, who first was admitted on 12/02/2016 because of the swelling and redness and pain of the left great big toe, which was the diagnosis of diabetic foot cellulitis failed on oral antibiotic at home. So the patient was admitted and started on antibiotics IV, and for some reason the patient a few days later was doing some x-ray or some other procedure, and the patient had a cardiopulmonary arrest and had to be intubated and gradually the patient became complicated. Since then the patient has had many complications and problems. The patient had to be intubated and was put on respirator and eventually had to have a tracheostomy, was performed while in the ICU and for feeding purposes they had an NG tube in place. Later on they had to place percutaneous gastrostomy tube, and the patient has been receiving a lot of medications, so gradually the patient started developing some pressure ulcers here and there, and as I can see from the evaluation of the pictures which are charted on 12/20/2016, patient had some stage 2 or deep tissue injury in the sacral coccygeal area. On 01/10/2017 she had 1 by 1 over 1 by 2 cm stage 3 sacral wound, and on 02/07/2017, picture shows that probably it is a stage 3 or unstageable sacral coccygeal wound and gradually the wound has gotten worse and worse until today, which I will mention, appears to be unstageable, and the size is quite large. PAST MEDICAL HISTORY: History of diabetes mellitus and _being on insulin before the patient being admitted on December 02. REVIEW OF SYSTEMS: The patient is not responsive, therefore what is written in the chart by other colleagues review of systems, please refer to that. ALLERGIES: NOT KNOWN. SOCIAL HISTORY: Apparently the patient has been living with the family and taken care of by her son. MEDICATIONS: The patient is on a long list of medications. Please kindly refer to MR. It should be mentioned that the patient is on, 1. Cipro. 2. Insulin. 3. Eliquis for atrial fibrillation and probably for prophylaxis of deep vein thrombosis. PHYSICAL EXAMINATION: GENERAL: Patient is past tracheostomy. Patient is on the ventilator for respiration. Patient has a G-tube as a PEG. Patient has an external Molina catheter for control of the urine. Patient is on the air mattress. VITAL SIGNS: Temperature 98.3, recorded heart rate 78 to 67, respirations 17 on ventilator, Fi02 is 30 percent, blood pressure 107/69, saturation 99 percent. Today, electrolytes with sodium 132, potassium 4.5. BUN is 74 and creatinine is 1.60. glucose is 182. Hematology today, WBC 10,000 with 78 percent neutrophils, hemoglobin 8.7, hematocrit 27.6, platelet count is 193. Last chest x-ray, which was done 10 days ago, and revealed calcified atherosclerosis in the aorta, pulmonary vascular congestion, prominence in the lungs. Scattered atelectasias in the right lower lobe. GENERAL: Patient is on the ventilator. Positive regular rhythm. LUNGS: decreased breathing sounds on bases. ABDOMEN: Abdomen is not distended. Bowel sounds are present. Abdomen is soft. PEG tube is in place. In the left groin area there is left inguinal hernia with small bulge, but it was reducible, and it should be mentioned that on the CT scan previously done on the pelvis, it showed left inguinal hernia with fat contains no bile in the sac. EXTREMITIES: There is no hip or knee contracture. There is no pitting edema of the tibial area. There are small areas of deep tissue injury and stage 1 and occasionally stage 2 bed sore over the malleoli and the heels, also, over the right ischial area. The patient was turned around for the inspection of the sacral coccygeal wound area. There is a very large unstageable sacral coccygeal wound, the size to me it is 8 cm transversely and 9 cm longitudinally with 1 cm periwound all around almost, it is malodorous, no gross pus is coming, the depths of the wound has become deep and suggests that there is damage to the deep tissues as well, which is about 1 cm at most depths of the wound currently. IMPRESSION: This is a 66-year-old gentleman, who has been here for more than 2 months, was admitted with the impression of cellulitis and diabetic foot on the left side. Patient later on had complications including cardiopulmonary arrest and anoxic brain damage, and required tracheostomy. 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 Review of the lab results and other evaluations reveal that the patient has cardiomyopathy. Ejection fraction 40 to 45 percent by echocardiogram and 36 percent by stress test, status post cardiopulmonary arrest on 01/08/2017. PLAN: I think this patient's sacral coccygeal wound needs debridement, surgical excision, and debridement should be done in the operating room. I have to talk to the junior net developer to see if the patient is a suitable case for the anesthesia for the operation and can he tolerate from a cardiopulmonary standpoint. When the patient becomes optimized, I will try to proceed with debridement. Meanwhile, recommend to continue the treatment, which has been suggested by wound nurse, namely protection of periwound and also application of the SANTYL covered by Adaptic and covered by foam dressing. Also, OFF LOAD the patient by changing the position every 2 hours and protection of the heels and areas of the prominences of the bones of the body. I will continue following along with colleagues. Dictated By: Kaleb Ureña MD /bharath/mo /Document#: [id number] JHONATAN
[2017-02-28] MEDS ORDERED: SOD CHLORIDE 0.9% 250 ML IV* ONE (13:50)
--- NOTE | 2017-02-28 13:50 | PN ---
Date/Time of Note Date/Time of Note DATE: 02/28/17 TIME: 13:47 Assessment/Plan VTE Prophylaxis VTE Prophylaxis Intervention: SCD's Lines/Catheters IV Catheter Type (from [facility]): Peripheral IV Urinary Cath still in place: No Assessment/Plan Chief Complaint/Hosp Course Pending hemodialysis today we will transfuse 1 unit of packed red blood cells with hemodialysis for hemoglobin 7.5. ASSESSMENT AND PLAN: - Sacral decubitus ulcer, Dr. Ureña is following in surgical consultation for possible debridement. Continue multivitamins and zinc sulfate. - Possible recurrent sepsis, resolving. Continue antibiotics per ID. Dr Celena pritchard is following infection disease consultation. - Dysphagia. S/p G-tube by Dr. Smith. Continue G-tube feeding, monitor residual. - Anemia of blood loss. Continue to monitor H&H, transfuse as needed. - Status post cardiopulmonary arrest on 12/09/2016 and 01/08/2017. Continue ventilatory support. - Anoxic encephalopathy. Continue Keppra. - Status post tracheostomy on 01/23/2017. Continue tracheostomy care. - End-stage renal disease. Continue hemodialysis per nephrology. - Paroxysmal atrial fibrillation. Eliquis is held for surgery. - Diabetes mellitus type 2. Continue Lantus and NovoLog with sliding scale coverage with Accu-Cheks q. 4 hours. - Diabetic foot ulcer. Continue current wound care. - Osteomyelitis of the distal phalanx of the great left toe. Completed treatment for antibiotics. Continue sequential compression device for deep venous thrombosis prophylaxis and Protonix for peptic ulcer disease prophylaxis. Further recommendations based on clinical course. Plan of care discussed with Dr. Heredia. Problems: Exam/Review of Systems Vital Signs Vitals Vital Signs Date Time Temp Pulse Resp B/P Pulse Ox O2 Delivery O2 Flow Rate FiO2 02/28/17 13:28 81 17 99 30 02/28/17 11:32 98.8 104/53 02/27/17 04:00 Mechanical Ventilator Intake and Output 02/27/17 02/27/17 02/28/17 15:00 23:00 07:00 Intake Total 1010 ml 475 ml Output Total 800 ml 350 ml Balance 210 ml 125 ml Exam Constitutional: non-verbal Head: atraumatic, normocephalic ENMT: other (Nasogastric tube) Neck: other (Tracheostomy), supple Respiratory: diminished breath sounds Cardiovascular: nl pulses Gastrointestinal: non-tender, soft, GT Neurological: unresponsive Results Result Diagram: 02/28/17 0615 02/28/17 0615 Results 24 hrs Laboratory Tests Test 02/27/17 17:28 02/27/17 20:56 02/28/17 01:02 02/28/17 05:32 Bedside Glucose 143 167 163 120 Test 02/28/17 06:15 02/28/17 08:24 02/28/17 12:44 White Blood Count 9.9 Red Blood Count 2.61 L Hemoglobin 7.5 L Hematocrit 24.2 L Mean Corpuscular Volume 92.7 Mean Corpuscular Hemoglobin 28.7 L Mean Corpuscular Hemoglobin Concent 31.0 L Red Cell Distribution Width 14.5 Platelet Count 211 Mean Platelet Volume 9.9 Neutrophils % 83.5 H Lymphocytes % 8.0 L Monocytes % 6.4 Eosinophils % 0.5 Basophils % 0.1 Nucleated Red Blood Cells % 0.0 Neutrophils # 8.2 H Lymphocytes # 0.8 Monocytes # 0.6 Eosinophils # 0.1 Basophils # 0.0 Nucleated Red Blood Cells # 0.0 Prothrombin Time 15.9 H Prothrombin Time Ratio 1.2 INR International Normalized Ratio 1.26 Activated Partial Thromboplast Time 38.9 H Sodium Level 150 H Potassium Level 3.9 Chloride Level 106 Carbon Dioxide Level 30 Anion Gap 18 H Blood Urea Nitrogen 66 H Creatinine 1.11 Glucose Level 106 Calcium Level 8.1 L Bedside Glucose 153 136 Medications Medications Current Medications Ondansetron HCl (Zofran Inj) 4 mg Q6H PRN IV NAUSEA AND/OR VOMITING Last administered on 02/23/17 12:49; Admin Dose 4 MG; Start 12/02/16 at 22:30 Miscellaneous Information 1 ea NOTE XX ; Start 12/02/16 at 23:00 Glucose (Glutose) 15 gm Q15M PRN PO DECREASED GLUCOSE; Start 12/02/16 at 23:00 Glucose (Glutose) 22.5 gm Q15M PRN PO DECREASED GLUCOSE; Start 12/02/16 at 23: 00 Dextrose (D50w Syringe) 25 ml Q15M PRN IV DECREASED GLUCOSE Last administered on 02/24/17 05:56; Admin Dose 25 ML; Start 12/02/16 at 23:00 Dextrose (D50w Syringe) 50 ml Q15M PRN IV DECREASED GLUCOSE Last administered on 01/23/17 04:58; Admin Dose 50 ML; Start 12/02/16 at 23:00 Glucagon (Glucagen) 1 mg Q15M PRN IM DECREASED GLUCOSE; Start 12/02/16 at 23:00 Glucose (Glutose) 15 gm Q15M PRN BUCCAL DECREASED GLUCOSE; Start 12/02/16 at 23 :00 Acetaminophen (Tylenol Supp) 650 mg Q6H PRN [place] ELEVATED TEMPERATURE Last administered on 01/13/17 20:32; Admin Dose 650 MG; Start 12/09/16 at 17:00 Hydralazine HCl (Apresoline) 10 mg Q6H PRN IV SBP>150mm hg Last administered on 12/19/16 08:50; Admin Dose 10 MG; Start 12/11/16 at 10:30 Morphine Sulfate (morphine) 2 mg Q2H PRN IV PAIN LEVEL 4-7; Start 12/13/16 at 10 :00 Collagenase (Santyl) 1 applic DAILY TOP Last administered on 02/28/17 09:37; Admin Dose 1 APPLIC; Start 01/04/17 at 09:00 Metoprolol Tartrate (Lopressor) 5 mg Q4 PRN IV FOR H.R>110; Start 01/12/17 at 17:30 Acetaminophen (Tylenol Liquid) 650 mg Q6H PRN NGT PAIN AND OR ELEVATED TEMP Last administered on 02/27/17 00:28; Admin Dose 650 MG; Start 01/13/17 at 23:30 Acetaminophen/ Hydrocodone Bitart ([place] (5/325)) 1 tab Q6H PRN NGT PAIN LEVEL 4-7; Start 01/13/17 at 23:30 Levetiracetam (Keppra Liquid) 1,000 mg DAILY NGT Last administered on 09:31; Admin Dose 1,000 MG; Start 01/14/17 at 09:00 Meclizine HCl (Antivert) 25 mg TID PRN NGT dizziness; Start 01/13/17 at 20:00 Zolpidem Tartrate (Ambien) 5 mg HS PRN NGT INSOMNIA; Start 01/13/17 at 20:00 Metoprolol Tartrate (Lopressor) 12.5 mg BID NGT Last administered on 7/13/17at 10:54; Admin Dose 12.5 MG; Start 01/24/17 at 21:00; Status Future Hold Nystatin (Nystatin Susp) 5 ml Q6 PO Last administered on 02/28/17 13:00; Admin Dose 5 ML; Start 01/31/17 at 12:00 Lansoprazole (Prevacid) 30 mg DAILY@06 GTB Last administered on 02/28/17 05:33 ; Admin Dose 30 MG; Start 02/09/17 at 06:00 Zinc Sulfate (Zinc Sulfate) 220 mg DAILY GTB Last administered on 02/28/17 09: 31; Admin Dose 220 MG; Start 02/14/17 at 15:00 Multivitamins (Multivitamin) 30 ml DAILY GTB Last administered on 02/28/17 09: 31; Admin Dose 30 ML; Start 02/14/17 at 16:30 Docusate Sodium (Colace Liquid Cup) 100 mg BID GTB Last administered on 09:31; Admin Dose 100 MG; Start 02/14/17 at 21:00 Apixaban (Eliquis) 2.5 mg BID GTB Last administered on 02/25/17 21:37; Admin Dose 2.5 MG; Start 02/14/17 at 21:00; Status Future hold Amiodarone HCl (Cordarone) 200 mg DAILY GTB Last administered on 02/28/17 09: 35; Admin Dose 200 MG; Start 02/19/17 at 09:00 Ascorbic Acid (Vitamin C) 500 mg DAILY GTB Last administered on 02/28/17 09:31 ; Admin Dose 500 MG; Start 02/22/17 at 09:00 Insulin Glargine (Lantus) 56 unit DAILY@20 SC Last administered on 02/27/17 20 :59; Admin Dose 56 UNIT; Start 02/22/17 at 20:00 Insulin Aspart NOVOLOG *MODERATE* ALGORI... Q4 SC Last administered on 01:05; Admin Dose 2 UNIT; Start 02/23/17 at 05:00 Sodium Chloride (NS) 1,000 ml @ 40 mls/hr Q24H IV Last administered on 15:46; Admin Dose 40 MLS/HR; Start 02/23/17 at 14:30 Metoclopramide HCl (Reglan) 5 mg Q6 IV Last administered on 02/28/17t 13:00; Admin Dose 5 MG; Start 02/23/17 at 18:00 KIMBERLY NOYOLA Feb 28, 2017 13:50
[2017-02-28] MEDS: SOD CHLORIDE 0.9% 1,000 ML IV SCH (14:30)
--- NOTE | 2017-02-28 15:14 | CONS ---
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 Blood cultures from HD catheter on 12/13/2016 are negative to date. 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 MRI on 12/06/2016 and bone scan on showed early OM of the distal phalanx of the left great toe and left fourth proximal phalanx. superficial swab grew inna only - s/p right pleural effusion s/p thoracentesis with .9L removed on 12/16/2016 - severe , EF 40-45% per TTE 12/17/16 - DM - Hgb A1c 8.7% - HTN associated with DM - sp Tracheostomy site bleeding Plan: HD today, will conitnue HD on MWF HD today, - H/H- 7.5/24.2.- order for 1 unit PRBC today fu CBC am. s/p Tracheostomy, on ventilator pt will need HD palcement at a unit where they can do a HD for pt with tracheostomy and PEG tube placemen t- leather case finisher has been instructed to set up renal issue pt has severe , very labile BP sometimes with HD will continue to follow up for HD need Plan of`care Dw Dr Evelina Remy/staff Consultation Date/Type/Reason Admit Date/Time Dec 02, 2016 at 21:01 Initial Consult Date 12/08/16 Type of Consultation: cardiology Reason for Consultation NEPHROLOGY Referring Provider: VIET PARKER MD 24 HR Interval Summary Free Text/Dictation HD today, semms confortable,,H/H- 7.5/24.2.- order for 1 unit PRBC today fu CBC am. dw staff. Constitutional: requiring IVF, requiring O2 Exam/Review of Systems Vital Signs Vitals Vital Signs Date Time Temp Pulse Resp B/P Pulse Ox O2 Delivery O2 Flow Rate FiO2 02/28/17 13:28 81 17 99 30 02/28/17 11:32 98.8 104/53 02/27/17 04:00 Mechanical Ventilator Intake and Output 02/27/17 02/27/17 02/28/17 14:59 22:59 06:59 Intake Total 1010 ml 475 ml Output Total 800 ml 350 ml Balance 210 ml 125 ml Exam Constitutional: non-verbal Respiratory: clear to auscultation, normal air movement Cardiovascular: nl pulses, regular rate and rhythm Gastrointestinal: non-tender, soft Genitourinary - Male: other Musculoskeletal: other Extremities: normal pulses Neurological: unresponsive Results Result Diagram: 02/28/17 0615 02/28/17 0615 Results 24 hrs Laboratory Tests Test 02/27/17 17:28 02/27/17 20:56 02/28/17 01:02 02/28/17 05:32 Bedside Glucose 143 167 163 120 Test 02/28/17 06:15 02/28/17 08:24 02/28/17 12:44 White Blood Count 9.9 Red Blood Count 2.61 L Hemoglobin 7.5 L Hematocrit 24.2 L Mean Corpuscular Volume 92.7 Mean Corpuscular Hemoglobin 28.7 L Mean Corpuscular Hemoglobin Concent 31.0 L Red Cell Distribution Width 14.5 Platelet Count 211 Mean Platelet Volume 9.9 Neutrophils % 83.5 H Lymphocytes % 8.0 L Monocytes % 6.4 Eosinophils % 0.5 Basophils % 0.1 Nucleated Red Blood Cells % 0.0 Neutrophils # 8.2 H Lymphocytes # 0.8 Monocytes # 0.6 Eosinophils # 0.1 Basophils # 0.0 Nucleated Red Blood Cells # 0.0 Prothrombin Time 15.9 H Prothrombin Time Ratio 1.2 INR International Normalized Ratio 1.26 Activated Partial Thromboplast Time 38.9 H Sodium Level 150 H Potassium Level 3.9 Chloride Level 106 Carbon Dioxide Level 30 Anion Gap 18 H Blood Urea Nitrogen 66 H Creatinine 1.11 Glucose Level 106 Calcium Level 8.1 L Bedside Glucose 153 136 Medications Medications Current Medications Ondansetron HCl (Zofran Inj) 4 mg Q6H PRN IV NAUSEA AND/OR VOMITING Last administered on 02/23/17 12:49; Admin Dose 4 MG; Start 12/02/16 at 22:30 Miscellaneous Information 1 ea NOTE XX ; Start 12/02/16 at 23:00 Glucose (Glutose) 15 gm Q15M PRN PO DECREASED GLUCOSE; Start 12/02/16 at 23:00 Glucose (Glutose) 22.5 gm Q15M PRN PO DECREASED GLUCOSE; Start 12/02/16 at 23: 00 Dextrose (D50w Syringe) 25 ml Q15M PRN IV DECREASED GLUCOSE Last administered on 02/24/17 05:56; Admin Dose 25 ML; Start 12/02/16 at 23:00 Dextrose (D50w Syringe) 50 ml Q15M PRN IV DECREASED GLUCOSE Last administered on 01/23/17 04:58; Admin Dose 50 ML; Start 12/02/16 at 23:00 Glucagon (Glucagen) 1 mg Q15M PRN IM DECREASED GLUCOSE; Start 12/02/16 at 23:00 Glucose (Glutose) 15 gm Q15M PRN BUCCAL DECREASED GLUCOSE; Start 12/02/16 at 23 :00 Acetaminophen (Tylenol Supp) 650 mg Q6H PRN [place] ELEVATED TEMPERATURE Last administered on 01/13/17 20:32; Admin Dose 650 MG; Start 12/09/16 at 17:00 Hydralazine HCl (Apresoline) 10 mg Q6H PRN IV SBP>150mm hg Last administered on 12/19/16 08:50; Admin Dose 10 MG; Start 12/11/16 at 10:30 Morphine Sulfate (morphine) 2 mg Q2H PRN IV PAIN LEVEL 4-7; Start 12/13/16 at 10 :00 Collagenase (Santyl) 1 applic DAILY TOP Last administered on 02/28/17 09:37; Admin Dose 1 APPLIC; Start 01/04/17 at 09:00 Metoprolol Tartrate (Lopressor) 5 mg Q4 PRN IV FOR H.R>110; Start 01/12/17 at 17:30 Acetaminophen (Tylenol Liquid) 650 mg Q6H PRN NGT PAIN AND OR ELEVATED TEMP Last administered on 02/27/17 00:28; Admin Dose 650 MG; Start 01/13/17 at 23:30 Acetaminophen/ Hydrocodone Bitart ([place] (5/325)) 1 tab Q6H PRN NGT PAIN LEVEL 4-7; Start 01/13/17 at 23:30 Levetiracetam (Keppra Liquid) 1,000 mg DAILY NGT Last administered on 09:31; Admin Dose 1,000 MG; Start 01/14/17 at 09:00 Meclizine HCl (Antivert) 25 mg TID PRN NGT dizziness; Start 01/13/17 at 20:00 Zolpidem Tartrate (Ambien) 5 mg HS PRN NGT INSOMNIA; Start 01/13/17 at 20:00 Metoprolol Tartrate (Lopressor) 12.5 mg BID NGT Last administered on 02/24/17 10:54; Admin Dose 12.5 MG; Start 01/24/17 at 21:00; Status Future Hold Nystatin (Nystatin Susp) 5 ml Q6 PO Last administered on 02/28/17 13:00; Admin Dose 5 ML; Start 01/31/17 at 12:00 Lansoprazole (Prevacid) 30 mg DAILY@06 GTB Last administered on 02/28/17 05:33 ; Admin Dose 30 MG; Start 02/09/17 at 06:00 Zinc Sulfate (Zinc Sulfate) 220 mg DAILY GTB Last administered on 02/28/17 09: 31; Admin Dose 220 MG; Start 02/14/17 at 15:00 Multivitamins (Multivitamin) 30 ml DAILY GTB Last administered on 02/28/17 09: 31; Admin Dose 30 ML; Start 02/14/17 at 16:30 Docusate Sodium (Colace Liquid Cup) 100 mg BID GTB Last administered on 09:31; Admin Dose 100 MG; Start 02/14/17 at 21:00 Apixaban (Eliquis) 2.5 mg BID GTB Last administered on 02/25/17 21:37; Admin Dose 2.5 MG; Start 02/14/17 at 21:00; Status Future hold Amiodarone HCl (Cordarone) 200 mg DAILY GTB Last administered on 02/28/17 09: 35; Admin Dose 200 MG; Start 02/19/17 at 09:00 Ascorbic Acid (Vitamin C) 500 mg DAILY GTB Last administered on 02/28/17 09:31 ; Admin Dose 500 MG; Start 02/22/17 at 09:00 Insulin Glargine (Lantus) 56 unit DAILY@20 SC Last administered on 02/27/17 20 :59; Admin Dose 56 UNIT; Start 02/22/17 at 20:00 Insulin Aspart NOVOLOG *MODERATE* ALGORI... Q4 SC Last administered on 01:05; Admin Dose 2 UNIT; Start 02/23/17 at 05:00 Sodium Chloride (NS) 1,000 ml @ 40 mls/hr Q24H IV Last administered on 15:46; Admin Dose 40 MLS/HR; Start 02/23/17 at 14:30 Metoclopramide HCl (Reglan) 5 mg Q6 IV Last administered on 02/28/17 13:00; Admin Dose 5 MG; Start 02/23/17 at 18:00 YULIANA SIMMONS Feb 28, 2017 15:14
--- NOTE | 2017-02-28 17:56 | CONS ---
Date/Time of Note Date/Time of Note DATE: 02/28/17 TIME: 17:53 Assessment/Plan Assessment/Plan Chief Complaint/Hosp Course - s/p recurrent sepsis due to pneumonia +/- funguria - treated with cefepime, tobramycin, and caspofungin - s/p recurrent pneumonia due to pseudomonas - s/p sepsis due to possible tracheobronchitis/pneumonia - funguria - thrush, refractory to nystatin - recurrent cardiopulmonary arrest on 12/09/2016 and on 01/08/2017 - hypoxic respiratory failure, intubated for the 2nd time on 12/12/2016; extubated 12/18/2016; re-intubated for the 3rd time 01/08/2017, s/p tracheostomy 06/2017 - bleeding from trach site - resolved - acute on chronic anemia due to acute blood loss, requiring blood transfusion - 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 Blood cultures from HD catheter on 12/13/2016 are negative to date. 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 MRI on 12/06/2016 and bone scan on showed early OM of the distal phalanx of the left great toe and left fourth proximal phalanx. superficial swab grew inna only. At present, no e/o persistent infection - recurrent pleural effusion - s/p right pleural effusion s/p thoracentesis with .9L removed on 12/16/2016; ( Note: there is no pleural fluid cx since orders were placed after Right thoracentesis, and Left thoracentesis was not performed on 12/17/16 d/t insufficient fluid) - ARANZA on CKD that progressed to ESRD and started on HD from 12/09/2016 - oliguria - improved - A fib -> PAF - small nonreversible perfusion abnormality in the inferoapical and inferior carver; EF 36% per Lexiscan 12/24/2016 - severe , EF 40-45% per TTE 12/17/16 - DM - Hgb A1c 8.7% - HTN associated with DM - acute encephalopathy with anoxic brain injury - unstageable decubitus ulcer of coccyx, no evidence of infection - dysphagia s/p G-tube placement 02/08/2017 NOTE: Pt completed 6 weeks (12/03/2016-01/15/2017) of antibiotics to treat early OM of the distal phalanx of the left great toe and left fourth proximal phalanx ; s/p pip/tazo 12/03/16-01/08/17; linezolid 01/08/17-01/20/17; caspofungin 01/12/17-01/21/17 and 02/04/17-02/17/17; tobramycin 02/04/2017- 02/15/17 for pseudomonas; cefepime 02/02/17-02/18/17 recommendations: - panculture if temp >100.4F - monitor closely off abx - continue nystatin for thrush - wound care of the coccyx and upper back Problems: Consultation Date/Type/Reason Admit Date/Time Dec 02, 2016 at 21:01 Initial Consult Date 12/03/16 Type of Consultation: ID Referring Provider: VIET PARKER MD 24 HR Interval Summary Subjective hx not possible: pt non-verbal Exam/Review of Systems Vital Signs Vitals Vital Signs Date Time Temp Pulse Resp B/P Pulse Ox O2 Delivery O2 Flow Rate FiO2 02/28/17 17:11 77 16 98 30 02/28/17 15:46 98.7 96/51 02/27/17 04:00 Mechanical Ventilator Intake and Output 02/27/17 02/27/17 02/28/17 15:00 23:00 07:00 Intake Total 1010 ml 475 ml Output Total 800 ml 350 ml Balance 210 ml 125 ml Exam Constitutional: frail, non-verbal Psych: confusion Head: atraumatic, normocephalic Eyes: nl conjunctiva, nl lids ENMT: nl external ears & nose Neck: other (trach) Respiratory: diminished breath sounds Cardiovascular: nl pulses, regular rate and rhythm Gastrointestinal: non-tender, other (GT), soft Musculoskeletal: No swelling Extremities: No edema Neurological: lethargic Skin: rash or lesions (sacrum and b/l heel) Results Result Diagram: 02/28/17 0615 02/28/17 0615 Results 24 hrs Laboratory Tests Test 02/27/17 20:56 02/28/17 01:02 02/28/17 05:32 02/28/17 06:15 Bedside Glucose 167 163 120 White Blood Count 9.9 Red Blood Count 2.61 L Hemoglobin 7.5 L Hematocrit 24.2 L Mean Corpuscular Volume 92.7 Mean Corpuscular Hemoglobin 28.7 L Mean Corpuscular Hemoglobin Concent 31.0 L Red Cell Distribution Width 14.5 Platelet Count 211 Mean Platelet Volume 9.9 Neutrophils % 83.5 H Lymphocytes % 8.0 L Monocytes % 6.4 Eosinophils % 0.5 Basophils % 0.1 Nucleated Red Blood Cells % 0.0 Neutrophils # 8.2 H Lymphocytes # 0.8 Monocytes # 0.6 Eosinophils # 0.1 Basophils # 0.0 Nucleated Red Blood Cells # 0.0 Prothrombin Time 15.9 H Prothrombin Time Ratio 1.2 INR International Normalized Ratio 1.26 Activated Partial Thromboplast Time 38.9 H Sodium Level 150 H Potassium Level 3.9 Chloride Level 106 Carbon Dioxide Level 30 Anion Gap 18 H Blood Urea Nitrogen 66 H Creatinine 1.11 Glucose Level 106 Calcium Level 8.1 L Test 02/28/17 08:24 02/28/17 12:44 02/28/17 17:35 Bedside Glucose 153 136 183 Medications Medications Current Medications Ondansetron HCl (Zofran Inj) 4 mg Q6H PRN IV NAUSEA AND/OR VOMITING Last administered on 02/23/17 12:49; Admin Dose 4 MG; Start 12/02/16 at 22:30 Miscellaneous Information 1 ea NOTE XX ; Start 12/02/16 at 23:00 Glucose (Glutose) 15 gm Q15M PRN PO DECREASED GLUCOSE; Start 12/02/16 at 23:00 Glucose (Glutose) 22.5 gm Q15M PRN PO DECREASED GLUCOSE; Start 12/02/16 at 23: 00 Dextrose (D50w Syringe) 25 ml Q15M PRN IV DECREASED GLUCOSE Last administered on 02/24/17 05:56; Admin Dose 25 ML; Start 12/02/16 at 23:00 Dextrose (D50w Syringe) 50 ml Q15M PRN IV DECREASED GLUCOSE Last administered on 01/23/17 04:58; Admin Dose 50 ML; Start 12/02/16 at 23:00 Glucagon (Glucagen) 1 mg Q15M PRN IM DECREASED GLUCOSE; Start 12/02/16 at 23:00 Glucose (Glutose) 15 gm Q15M PRN BUCCAL DECREASED GLUCOSE; Start 12/02/16 at 23 :00 Acetaminophen (Tylenol Supp) 650 mg Q6H PRN [place] ELEVATED TEMPERATURE Last administered on 01/13/17 20:32; Admin Dose 650 MG; Start 12/09/16 at 17:00 Hydralazine HCl (Apresoline) 10 mg Q6H PRN IV SBP>150mm hg Last administered on 12/19/16 08:50; Admin Dose 10 MG; Start 12/11/16 at 10:30 Morphine Sulfate (morphine) 2 mg Q2H PRN IV PAIN LEVEL 4-7; Start 12/13/16 at 10 :00 Collagenase (Santyl) 1 applic DAILY TOP Last administered on 02/28/17 09:37; Admin Dose 1 APPLIC; Start 01/04/17 at 09:00 Metoprolol Tartrate (Lopressor) 5 mg Q4 PRN IV FOR H.R>110; Start 01/12/17 at 17:30 Acetaminophen (Tylenol Liquid) 650 mg Q6H PRN NGT PAIN AND OR ELEVATED TEMP Last administered on 02/27/17 00:28; Admin Dose 650 MG; Start 01/13/17 at 23:30 Acetaminophen/ Hydrocodone Bitart ([place] (5/325)) 1 tab Q6H PRN NGT PAIN LEVEL 4-7; Start 01/13/17 at 23:30 Levetiracetam (Keppra Liquid) 1,000 mg DAILY NGT Last administered on 09:31; Admin Dose 1,000 MG; Start 01/14/17 at 09:00 Meclizine HCl (Antivert) 25 mg TID PRN NGT dizziness; Start 01/13/17 at 20:00 Zolpidem Tartrate (Ambien) 5 mg HS PRN NGT INSOMNIA; Start 01/13/17 at 20:00 Metoprolol Tartrate (Lopressor) 12.5 mg BID NGT Last administered on 02/24/17 10:54; Admin Dose 12.5 MG; Start 01/24/17 at 21:00; Status Future Hold Nystatin (Nystatin Susp) 5 ml Q6 PO Last administered on 02/28/17 17:49; Admin Dose 5 ML; Start 01/31/17 at 12:00 Lansoprazole (Prevacid) 30 mg DAILY@06 GTB Last administered on 02/28/17 05:33 ; Admin Dose 30 MG; Start 02/09/17 at 06:00 Zinc Sulfate (Zinc Sulfate) 220 mg DAILY GTB Last administered on 02/28/17 09: 31; Admin Dose 220 MG; Start 02/14/17 at 15:00 Multivitamins (Multivitamin) 30 ml DAILY GTB Last administered on 02/28/17 09: 31; Admin Dose 30 ML; Start 02/14/17 at 16:30 Docusate Sodium (Colace Liquid Cup) 100 mg BID GTB Last administered on 09:31; Admin Dose 100 MG; Start 02/14/17 at 21:00 Apixaban (Eliquis) 2.5 mg BID GTB Last administered on 02/25/17 21:37; Admin Dose 2.5 MG; Start 02/14/17 at 21:00; Status Future hold Amiodarone HCl (Cordarone) 200 mg DAILY GTB Last administered on 02/28/17 09: 35; Admin Dose 200 MG; Start 02/19/17 at 09:00 Ascorbic Acid (Vitamin C) 500 mg DAILY GTB Last administered on 02/28/17 09:31 ; Admin Dose 500 MG; Start 02/22/17 at 09:00 Insulin Glargine (Lantus) 56 unit DAILY@20 SC Last administered on 02/27/17 20 :59; Admin Dose 56 UNIT; Start 02/22/17 at 20:00 Insulin Aspart NOVOLOG *MODERATE* ALGORI... Q4 SC Last administered on 17:47; Admin Dose 4 UNIT; Start 02/23/17 at 05:00 Sodium Chloride (NS) 1,000 ml @ 40 mls/hr Q24H IV Last administered on 15:46; Admin Dose 40 MLS/HR; Start 02/23/17 at 14:30 Metoclopramide HCl (Reglan) 5 mg Q6 IV Last administered on 02/28/17 17:49; Admin Dose 5 MG; Start 02/23/17 at 18:00 CHRISTY LOPEZ M.D. Feb 28, 2017 17:55
[2017-02-28] MEDS: INSULIN GLARGINE [LANtus] 3 ML PEN SC SCH (20:38)
[2017-03-01] VITALS (23 sets, daily range): BP systolic 112–127; BP diastolic 53–62; PULSE 68–78; RESP 16–21
[2017-03-01] MEDS: METOCLOPRAMIDE 10 MG INJ IV SCH ×4 (00:33→18:12)
[2017-03-01] MEDS: NYSTATIN SUSP 5 ML CUP PO SCH ×4 (00:33→18:12)
[2017-03-01] MEDS: INSULIN ASPART [NOVOLOG] 3 ML PEN SC SCH ×6 (00:34→21:24)
[2017-03-01] MEDS: SOD CHLORIDE 0.9% 1,000 ML IV SCH ×2 (00:39→14:30)
[2017-03-01] MEDS: ALBUTEROL 18 GM INHALER INH SCH ×4 (01:13→19:20)
[2017-03-01] MEDS: LANSOPRAZOLE 30 MG CAP GTB SCH (06:00)
[2017-03-01 08:33] LABS: ADD SCAN DIFF NO
[2017-03-01 08:39] LABS: BASOPHILS % 0.2 % (0.0-2.0); EOSINOPHILS # 0.1 10^3/ul (0.0-0.5); EOSINOPHILS % 0.7 % (0.0-7.0); HEMOGLOBIN 8.9 g/dl (14.0-18.0); LYMPHOCYTES # 1.3 10^3/ul (0.8-2.9); LYMPHOCYTES % 10.1 % (15.0-51.0); MEAN CORPUSCULAR HEMOGLOBIN 28.9 pg (29.0-33.0); MEAN CORPUSCULAR HGB CONC 31.8 g/dl (32.0-37.0); MEAN CORPUSCULAR VOLUME 90.9 fl (82.0-101.0); MONOCYTE # 1.1 10^3/ul (0.3-0.9); MONOCYTES % 8.5 % (0.0-11.0); NEUTROPHIL # 9.9 10^3/ul (1.6-7.5); NEUTROPHILS % 79.1 % (39.0-77.0); PLATELET COUNT 191 10^3/UL (140-415); RED BLOOD COUNT 3.08 10^6/ul (4.70-6.10); RED CELL DISTRIBUTION WIDTH 14.6 % (11.5-14.5); WHITE BLOOD COUNT 12.5 10^3/ul (4.8-10.8)
[2017-03-01] MEDS: COLLAGENASE 30 GM TUBE TOP SCH (09:00)
[2017-03-01] MEDS: APIXABAN 5 MG TABLET GTB SCH ×2 (09:00→21:00)
[2017-03-01 09:06] LABS: CALCIUM 8.1 mg/dl (8.4-10.2); CREATININE 0.77 mg/dl (0.61-1.24); POTASSIUM 3.8 mmol/L (3.5-5.1)
--- NOTE | 2017-03-01 09:13 | CONS ---
Date/Time of Note Date/Time of Note DATE: 03/01/17 TIME: 09:10 Consult Date/Type/Reason Admit Date/Time Dec 02, 2016 at 21:01 Initial Consult Date 12/08/16 Type of Consultation: ID Ordering Provider: VIET PARKER MD Subjective sp blood transfusion Hb better, afebrile, leukocytosis- ID follows. dw staff Objective Vital Signs Date Time Temp Pulse Resp B/P Pulse Ox O2 Delivery O2 Flow Rate FiO2 03/01/17 08:39 74 03/01/17 07:30 99.3 21 118/53 96 03/01/17 04:18 30 02/27/17 04:00 Mechanical Ventilator Intake and Output 02/28/17 02/28/17 03/01/17 15:00 23:00 07:00 Intake Total 300 ml 1000 ml 1240 ml Output Total 2800 ml 2950 ml 250 ml Balance -2500 ml -1950 ml 990 ml Exam Constitutional: non-verbal Respiratory: clear to auscultation, normal air movement Cardiovascular: nl pulses, regular rate and rhythm Gastrointestinal: non-tender, soft Genitourinary - Male: other Musculoskeletal: other Extremities: normal pulses Neurological: unresponsive Results/Medications Result Diagram: 03/01/17 0733 02/28/17 0615 Results 24 hrs Laboratory Tests Test 02/28/17 12:44 02/28/17 17:35 02/28/17 20:34 03/01/17 00:32 Bedside Glucose 136 183 212 159 Test 03/01/17 05:58 03/01/17 07:33 Bedside Glucose 118 White Blood Count 12.5 #H Red Blood Count 3.08 L Hemoglobin 8.9 L Hematocrit 28.0 L Mean Corpuscular Volume 90.9 Mean Corpuscular Hemoglobin 28.9 L Mean Corpuscular Hemoglobin Concent 31.8 L Red Cell Distribution Width 14.6 H Platelet Count 191 Mean Platelet Volume 10.0 Neutrophils % 79.1 H Lymphocytes % 10.1 L Monocytes % 8.5 Eosinophils % 0.7 Basophils % 0.2 Nucleated Red Blood Cells % 0.0 Neutrophils # 9.9 H Lymphocytes # 1.3 Monocytes # 1.1 H Eosinophils # 0.1 Basophils # 0.0 Nucleated Red Blood Cells # 0.0 Medications Current Medications Ondansetron HCl (Zofran Inj) 4 mg Q6H PRN IV NAUSEA AND/OR VOMITING Last administered on 02/23/17 12:49; Admin Dose 4 MG; Start 12/02/16 at 22:30 Miscellaneous Information 1 ea NOTE XX ; Start 12/02/16 at 23:00 Glucose (Glutose) 15 gm Q15M PRN PO DECREASED GLUCOSE; Start 12/02/16 at 23:00 Glucose (Glutose) 22.5 gm Q15M PRN PO DECREASED GLUCOSE; Start 12/02/16 at 23: 00 Dextrose (D50w Syringe) 25 ml Q15M PRN IV DECREASED GLUCOSE Last administered on 02/24/17 05:56; Admin Dose 25 ML; Start 12/02/16 at 23:00 Dextrose (D50w Syringe) 50 ml Q15M PRN IV DECREASED GLUCOSE Last administered on 01/23/17 04:58; Admin Dose 50 ML; Start 12/02/16 at 23:00 Glucagon (Glucagen) 1 mg Q15M PRN IM DECREASED GLUCOSE; Start 12/02/16 at 23:00 Glucose (Glutose) 15 gm Q15M PRN BUCCAL DECREASED GLUCOSE; Start 12/02/16 at 23 :00 Acetaminophen (Tylenol Supp) 650 mg Q6H PRN [place] ELEVATED TEMPERATURE Last administered on 01/13/17 20:32; Admin Dose 650 MG; Start 12/09/16 at 17:00 Hydralazine HCl (Apresoline) 10 mg Q6H PRN IV SBP>150mm hg Last administered on 12/19/16 08:50; Admin Dose 10 MG; Start 12/11/16 at 10:30 Morphine Sulfate (morphine) 2 mg Q2H PRN IV PAIN LEVEL 4-7; Start 12/13/16 at 10 :00 Collagenase (Santyl) 1 applic DAILY TOP Last administered on 02/28/17 09:37; Admin Dose 1 APPLIC; Start 01/04/17 at 09:00 Metoprolol Tartrate (Lopressor) 5 mg Q4 PRN IV FOR H.R>110; Start 01/12/17 at 17:30 Acetaminophen (Tylenol Liquid) 650 mg Q6H PRN NGT PAIN AND OR ELEVATED TEMP Last administered on 02/27/17 00:28; Admin Dose 650 MG; Start 01/13/17 at 23:30 Acetaminophen/ Hydrocodone Bitart ([place] (5/325)) 1 tab Q6H PRN NGT PAIN LEVEL 4-7; Start 01/13/17 at 23:30 Levetiracetam (Keppra Liquid) 1,000 mg DAILY NGT Last administered on 09:31; Admin Dose 1,000 MG; Start 01/14/17 at 09:00 Meclizine HCl (Antivert) 25 mg TID PRN NGT dizziness; Start 01/13/17 at 20:00 Zolpidem Tartrate (Ambien) 5 mg HS PRN NGT INSOMNIA; Start 01/13/17 at 20:00 Metoprolol Tartrate (Lopressor) 12.5 mg BID NGT Last administered on 02/24/17 10:54; Admin Dose 12.5 MG; Start 01/24/17 at 21:00; Status Future Hold Nystatin (Nystatin Susp) 5 ml Q6 PO Last administered on 03/01/17 06:00; Admin Dose 5 ML; Start 01/31/17 at 12:00 Lansoprazole (Prevacid) 30 mg DAILY@06 GTB Last administered on 03/01/17 06:00 ; Admin Dose 30 MG; Start 02/09/17 at 06:00 Zinc Sulfate (Zinc Sulfate) 220 mg DAILY GTB Last administered on 02/28/17 09: 31; Admin Dose 220 MG; Start 02/14/17 at 15:00 Multivitamins (Multivitamin) 30 ml DAILY GTB Last administered on 02/28/17 09: 31; Admin Dose 30 ML; Start 02/14/17 at 16:30 Docusate Sodium (Colace Liquid Cup) 100 mg BID GTB Last administered on 20:32; Admin Dose 100 MG; Start 02/14/17 at 21:00 Apixaban (Eliquis) 2.5 mg BID GTB Last administered on 02/25/17 21:37; Admin Dose 2.5 MG; Start 02/14/17 at 21:00; Status Future hold Amiodarone HCl (Cordarone) 200 mg DAILY GTB Last administered on 02/28/17 09: 35; Admin Dose 200 MG; Start 02/19/17 at 09:00 Ascorbic Acid (Vitamin C) 500 mg DAILY GTB Last administered on 02/28/17 09:31 ; Admin Dose 500 MG; Start 02/22/17 at 09:00 Insulin Glargine (Lantus) 56 unit DAILY@20 SC Last administered on 02/28/17 20 :38; Admin Dose 56 UNIT; Start 02/22/17 at 20:00 Insulin Aspart NOVOLOG *MODERATE* ALGORI... Q4 SC Last administered on 00:34; Admin Dose 2 UNIT; Start 02/23/17 at 05:00 Sodium Chloride (NS) 1,000 ml @ 40 mls/hr Q24H IV Last administered on 00:39; Admin Dose 40 MLS/HR; Start 02/23/17 at 14:30 Metoclopramide HCl (Reglan) 5 mg Q6 IV Last administered on 03/01/17 06:00; Admin Dose 5 MG; Start 02/23/17 at 18:00 Assessment/Plan Additional Assessment/Plan -S/p cardiopulmonary arrest on 12/09/2016 and on 01/08/2017 - 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 Blood cultures from HD catheter on 12/13/2016 are negative to date. 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 MRI on 12/06/2016 and bone scan on showed early OM of the distal phalanx of the left great toe and left fourth proximal phalanx. superficial swab grew inna only - s/p right pleural effusion s/p thoracentesis with .9L removed on 12/16/2016 - severe , EF 40-45% per TTE 12/17/16 - DM - Hgb A1c 8.7% - HTN associated with DM - sp Tracheostomy site bleeding Plan: - conitnue HD on [facility] - H/H- 7.5/24.2.- order for 1 unit PRBC- H/H improved. s/p Tracheostomy, on ventilator pt will need HD palcement at a unit where they can do a HD for pt with tracheostomy and PEG tube placemen t- block and case maker has been instructed to set up US renal bull mauricio pt has severe , very labile BP sometimes with HD will continue to follow up for HD need Plan of`care Dw Dr Evelina Remy/staff YULIANA SIMMONS Mar 01, 2017 09:13
[2017-03-01] MEDS: DOCUSATE SODIUM 10 MG/ML (10ML CUP) GTB SCH ×2 (10:25→21:19)
[2017-03-01] MEDS: ACETAMINOPHEN 650MG/20.3ML CUP NGT PRN (10:25)
[2017-03-01] MEDS: MULTIVITAMINS 30 ML CUP GTB SCH (10:25)
[2017-03-01] MEDS: AMIODARONE 200 MG TAB GTB SCH (10:26)
[2017-03-01] MEDS: LEVETIRACETAM (100 MG/ML) 5ML CUP NGT SCH (10:26)
[2017-03-01] MEDS: ASCORBIC ACID 500 MG TAB GTB SCH (10:26)
[2017-03-01] MEDS: ZINC SULFATE 220 MG CAP GTB SCH (10:27)
--- NOTE | 2017-03-01 14:22 | CONS ---
Date/Time of Note Date/Time of Note DATE: 03/01/17 TIME: 14:18 Assessment/Plan Assessment/Plan Chief Complaint/Hosp Course IMPRESSION: 1. Atrial fibrillation-Having episodes of PAF with reasonable rate control. Currently remains in SR. Had pause approximately 4 seconds this am ? if was during suctioning. No recurrent pause since holding of BB 2. Hypotension-overall improved and stable 3. Abnormal electrocardiogram with inferolateral T-wave inversions. 4. Respiratory failure-s/p trach placement 5. Nonhealing toe ulceration-vascular following 6. Peripheral arterial disease by arterial ultrasound of the lower extremities this admission. 7. Diabetes mellitus. 8. Fevers. 9. Positive troponin-downtrended 10.Bradycardia-improved/stable 11.-severe by echo 12.Cardiomyopathy-EF 40-45% by echo/36% by stress with no ischemia but positive scar. EF <30% by echo post arrest 13.Encephalopathy-anoxic 14. s/p cardiopulmonary arrest 01/08 15. Pre-op-for debridemnt of decubitis ulcer- Patient at this time has no definite cardiac contraindication to proceeding to OR for debridement but is at high risk for CV complications due to severe and cardiomyopathy 16. Hypernatremia-resolved Recc: -Tele -serial ecg -HD for volume removal as tolerated ongoing today -Eliquis still held in anticipation of upcoming surgery? -Continue PO amio in attempt to maintain SR, daily and follow for any recurrent pauses -Will hold on afterload reduction given severe and thus fixed afterload at valve orifice -Continue to hold BB and follow for recurrent pause -Possible pnding debridement/check post-op ecg? if patient will still undergo surgery and if not then should resume eliquis Problems: Consultation Date/Type/Reason Admit Date/Time Dec 02, 2016 at 21:01 Initial Consult Date 12/03/16 Type of Consultation: cardiology Reason for Consultation /cardiomyopathy/AF Referring Provider: VIET PARKER MD Exam/Review of Systems Vital Signs Vitals Vital Signs Date Time Temp Pulse Resp B/P Pulse Ox O2 Delivery O2 Flow Rate FiO2 03/01/17 12:16 74 03/01/17 11:33 98.9 20 127/61 98 03/01/17 04:18 30 02/27/17 04:00 Mechanical Ventilator Intake and Output 7/02/28/17 03/01/17 15:00 23:00 07:00 Intake Total 300 ml 1000 ml 1240 ml Output Total 2800 ml 2950 ml 250 ml Balance -2500 ml -1950 ml 990 ml Exam Review of Systems: CONSTITUTIONAL: No fevers, chills. PULMONARY: No sob CARDIOVASCULAR: No chest pain/palpitations GASTROINTESTINAL: No nausea/vomiting. GENITOURINARY: No hematuria/dysuria. MUSCULOSKELETAL: No myagias/arthalgias. PSYCHIATRIC: The patient denies depression. NEUROLOGIC: No weakness Constitutional: other (encephalopthic) Psych: no complaints Head: normocephalic ENMT: mucosa pink and moist Neck: jvd (9 cm water), supple Respiratory: diminished breath sounds (at bases/B) Cardiovascular: regular rate and rhythm Gastrointestinal: non-tender, soft Musculoskeletal: muscle tone (normal) Extremities: edema (none) Neurological: confused, lethargic Results Result Diagram: 03/01/17 0733 03/01/17 0733 Results 24 hrs Laboratory Tests Test 02/28/17 17:35 02/28/17 20:34 03/01/17 00:32 03/01/17 05:58 Bedside Glucose 183 212 159 118 Test 03/01/17 07:33 03/01/17 10:25 03/01/17 12:36 White Blood Count 12.5 #H Red Blood Count 3.08 L Hemoglobin 8.9 L Hematocrit 28.0 L Mean Corpuscular Volume 90.9 Mean Corpuscular Hemoglobin 28.9 L Mean Corpuscular Hemoglobin Concent 31.8 L Red Cell Distribution Width 14.6 H Platelet Count 191 Mean Platelet Volume 10.0 Neutrophils % 79.1 H Lymphocytes % 10.1 L Monocytes % 8.5 Eosinophils % 0.7 Basophils % 0.2 Nucleated Red Blood Cells % 0.0 Neutrophils # 9.9 H Lymphocytes # 1.3 Monocytes # 1.1 H Eosinophils # 0.1 Basophils # 0.0 Nucleated Red Blood Cells # 0.0 Sodium Level 140 Potassium Level 3.8 Chloride Level 97 Carbon Dioxide Level 32 H Anion Gap 15 Blood Urea Nitrogen 46 #H Creatinine 0.77 Glucose Level 130 Calcium Level 8.1 L Bedside Glucose 153 162 Medications Medications Current Medications Ondansetron HCl (Zofran Inj) 4 mg Q6H PRN IV NAUSEA AND/OR VOMITING Last administered on 02/23/17 12:49; Admin Dose 4 MG; Start 12/02/16 at 22:30 Miscellaneous Information 1 ea NOTE XX ; Start 12/02/16 at 23:00 Glucose (Glutose) 15 gm Q15M PRN PO DECREASED GLUCOSE; Start 12/02/16 at 23:00 Glucose (Glutose) 22.5 gm Q15M PRN PO DECREASED GLUCOSE; Start 12/02/16 at 23: 00 Dextrose (D50w Syringe) 25 ml Q15M PRN IV DECREASED GLUCOSE Last administered on 02/24/17 05:56; Admin Dose 25 ML; Start 12/02/16 at 23:00 Dextrose (D50w Syringe) 50 ml Q15M PRN IV DECREASED GLUCOSE Last administered on 01/23/17 04:58; Admin Dose 50 ML; Start 12/02/16 at 23:00 Glucagon (Glucagen) 1 mg Q15M PRN IM DECREASED GLUCOSE; Start 12/02/16 at 23:00 Glucose (Glutose) 15 gm Q15M PRN BUCCAL DECREASED GLUCOSE; Start 12/02/16 at 23 :00 Acetaminophen (Tylenol Supp) 650 mg Q6H PRN [place] ELEVATED TEMPERATURE Last administered on 01/13/17 20:32; Admin Dose 650 MG; Start 12/09/16 at 17:00 Hydralazine HCl (Apresoline) 10 mg Q6H PRN IV SBP>150mm hg Last administered on 12/19/16 08:50; Admin Dose 10 MG; Start 12/11/16 at 10:30 Morphine Sulfate (morphine) 2 mg Q2H PRN IV PAIN LEVEL 4-7; Start 12/13/16 at 10 :00 Collagenase (Santyl) 1 applic DAILY TOP Last administered on 03/01/17 09:00; Admin Dose 1 APPLIC; Start 01/04/17 at 09:00 Metoprolol Tartrate (Lopressor) 5 mg Q4 PRN IV FOR H.R>110; Start 01/12/17 at 17:30 Acetaminophen (Tylenol Liquid) 650 mg Q6H PRN NGT PAIN AND OR ELEVATED TEMP Last administered on 03/01/17 10:25; Admin Dose 650 MG; Start 01/13/17 at 23:30 Acetaminophen/ Hydrocodone Bitart ([place] (5/325)) 1 tab Q6H PRN NGT PAIN LEVEL 4-7; Start 01/13/17 at 23:30 Levetiracetam (Keppra Liquid) 1,000 mg DAILY NGT Last administered on 10:26; Admin Dose 1,000 MG; Start 01/14/17 at 09:00 Meclizine HCl (Antivert) 25 mg TID PRN NGT dizziness; Start 01/13/17 at 20:00 Zolpidem Tartrate (Ambien) 5 mg HS PRN NGT INSOMNIA; Start 01/13/17 at 20:00 Metoprolol Tartrate (Lopressor) 12.5 mg BID NGT Last administered on 02/24/17 10:54; Admin Dose 12.5 MG; Start 01/24/17 at 21:00; Status Future Hold Nystatin (Nystatin Susp) 5 ml Q6 PO Last administered on 03/01/17 12:35; Admin Dose 5 ML; Start 01/31/17 at 12:00 Lansoprazole (Prevacid) 30 mg DAILY@06 GTB Last administered on 03/01/17 06:00 ; Admin Dose 30 MG; Start 02/09/17 at 06:00 Zinc Sulfate (Zinc Sulfate) 220 mg DAILY GTB Last administered on 03/01/17 10: 27; Admin Dose 220 MG; Start 02/14/17 at 15:00 Multivitamins (Multivitamin) 30 ml DAILY GTB Last administered on 03/01/17 10: 25; Admin Dose 30 ML; Start 02/14/17 at 16:30 Docusate Sodium (Colace Liquid Cup) 100 mg BID GTB Last administered on 10:25; Admin Dose 100 MG; Start 02/14/17 at 21:00 Apixaban (Eliquis) 2.5 mg BID GTB Last administered on 02/25/17 21:37; Admin Dose 2.5 MG; Start 02/14/17 at 21:00; Status Future hold Amiodarone HCl (Cordarone) 200 mg DAILY GTB Last administered on 03/01/17 10: 26; Admin Dose 200 MG; Start 02/19/17 at 09:00 Ascorbic Acid (Vitamin C) 500 mg DAILY GTB Last administered on 03/01/17 10:26 ; Admin Dose 500 MG; Start 02/22/17 at 09:00 Insulin Glargine (Lantus) 56 unit DAILY@20 SC Last administered on 02/28/17 20 :38; Admin Dose 56 UNIT; Start 02/22/17 at 20:00 Insulin Aspart NOVOLOG *MODERATE* ALGORI... Q4 SC Last administered on 12:47; Admin Dose 2 UNIT; Start 02/23/17 at 05:00 Sodium Chloride (NS) 1,000 ml @ 40 mls/hr Q24H IV Last administered on 00:39; Admin Dose 40 MLS/HR; Start 02/23/17 at 14:30 Metoclopramide HCl (Reglan) 5 mg Q6 IV Last administered on 03/01/17 12:35; Admin Dose 5 MG; Start 02/23/17 at 18:00 VICENTE LESLIE Mar 01, 2017 14:22
[2017-03-01 15:10] LABS: HEPATITIS B DELTA ANTIBODY NEGATIVE
--- NOTE | 2017-03-01 17:45 | PN ---
Date/Time of Note Date/Time of Note DATE: 03/01/17 TIME: 17:43 Assessment/Plan VTE Prophylaxis VTE Prophylaxis Intervention: SCD's Lines/Catheters IV Catheter Type (from [facility]): Peripheral IV Urinary Cath still in place: No Assessment/Plan Chief Complaint/Hosp Course Patient remains hemodynamically stable, status post blood transfusion yesterday. ASSESSMENT AND PLAN: - Sacral decubitus ulcer, Dr. Ureña is following in surgical consultation for possible debridement. Continue multivitamins and zinc sulfate. - Possible recurrent sepsis, resolving. Continue antibiotics per ID. Dr Celena pritchard is following infection disease consultation. - Dysphagia. S/p G-tube by Dr. Smith. Continue G-tube feeding, monitor residual. - Anemia of blood loss. Continue to monitor H&H, transfuse as needed. - Status post cardiopulmonary arrest on 12/09/2016 and 01/08/2017. Continue ventilatory support. - Anoxic encephalopathy. Continue Keppra. - Status post tracheostomy on 01/23/2017. Continue tracheostomy care. - End-stage renal disease. Continue hemodialysis per nephrology. - Paroxysmal atrial fibrillation. Eliquis is held for surgery. - Diabetes mellitus type 2. Continue Lantus and NovoLog with sliding scale coverage with Accu-Cheks q. 4 hours. - Diabetic foot ulcer. Continue current wound care. - Osteomyelitis of the distal phalanx of the great left toe. Completed treatment for antibiotics. Continue sequential compression device for deep venous thrombosis prophylaxis and Protonix for peptic ulcer disease prophylaxis. Further recommendations based on clinical course. Plan of care discussed with Dr. Heredia. Problems: Exam/Review of Systems Vital Signs Vitals Vital Signs Date Time Temp Pulse Resp B/P Pulse Ox O2 Delivery O2 Flow Rate FiO2 03/01/17 16:16 73 03/01/17 15:47 98.6 21 117/59 98 03/01/17 10:15 30 02/27/17 04:00 Mechanical Ventilator Intake and Output 02/28/17 02/28/17 03/01/17 15:00 23:00 07:00 Intake Total 300 ml 1000 ml 1240 ml Output Total 2800 ml 2950 ml 250 ml Balance -2500 ml -1950 ml 990 ml Exam Constitutional: non-verbal Head: atraumatic, normocephalic ENMT: other (Nasogastric tube) Neck: other (Tracheostomy), supple Respiratory: diminished breath sounds Cardiovascular: nl pulses Gastrointestinal: non-tender, soft, GT Neurological: unresponsive Results Result Diagram: 03/01/17 0733 03/01/17 0733 Results 24 hrs Laboratory Tests Test 02/28/17 20:34 03/01/17 00:32 03/01/17 05:58 03/01/17 07:33 Bedside Glucose 212 159 118 White Blood Count 12.5 #H Red Blood Count 3.08 L Hemoglobin 8.9 L Hematocrit 28.0 L Mean Corpuscular Volume 90.9 Mean Corpuscular Hemoglobin 28.9 L Mean Corpuscular Hemoglobin Concent 31.8 L Red Cell Distribution Width 14.6 H Platelet Count 191 Mean Platelet Volume 10.0 Neutrophils % 79.1 H Lymphocytes % 10.1 L Monocytes % 8.5 Eosinophils % 0.7 Basophils % 0.2 Nucleated Red Blood Cells % 0.0 Neutrophils # 9.9 H Lymphocytes # 1.3 Monocytes # 1.1 H Eosinophils # 0.1 Basophils # 0.0 Nucleated Red Blood Cells # 0.0 Sodium Level 140 Potassium Level 3.8 Chloride Level 97 Carbon Dioxide Level 32 H Anion Gap 15 Blood Urea Nitrogen 46 #H Creatinine 0.77 Glucose Level 130 Calcium Level 8.1 L Test 03/01/17 10:25 03/01/17 12:36 03/01/17 17:16 Bedside Glucose 153 162 149 Medications Medications Current Medications Ondansetron HCl (Zofran Inj) 4 mg Q6H PRN IV NAUSEA AND/OR VOMITING Last administered on 02/23/17 12:49; Admin Dose 4 MG; Start 12/02/16 at 22:30 Miscellaneous Information 1 ea NOTE XX ; Start 12/02/16 at 23:00 Glucose (Glutose) 15 gm Q15M PRN PO DECREASED GLUCOSE; Start 12/02/16 at 23:00 Glucose (Glutose) 22.5 gm Q15M PRN PO DECREASED GLUCOSE; Start 12/02/16 at 23: 00 Dextrose (D50w Syringe) 25 ml Q15M PRN IV DECREASED GLUCOSE Last administered on 02/24/17 05:56; Admin Dose 25 ML; Start 12/02/16 at 23:00 Dextrose (D50w Syringe) 50 ml Q15M PRN IV DECREASED GLUCOSE Last administered on 01/23/17 04:58; Admin Dose 50 ML; Start 12/02/16 at 23:00 Glucagon (Glucagen) 1 mg Q15M PRN IM DECREASED GLUCOSE; Start 12/02/16 at 23:00 Glucose (Glutose) 15 gm Q15M PRN BUCCAL DECREASED GLUCOSE; Start 12/02/16 at 23 :00 Acetaminophen (Tylenol Supp) 650 mg Q6H PRN [place] ELEVATED TEMPERATURE Last administered on 01/13/17 20:32; Admin Dose 650 MG; Start 12/09/16 at 17:00 Hydralazine HCl (Apresoline) 10 mg Q6H PRN IV SBP>150mm hg Last administered on 12/19/16 08:50; Admin Dose 10 MG; Start 12/11/16 at 10:30 Morphine Sulfate (morphine) 2 mg Q2H PRN IV PAIN LEVEL 4-7; Start 12/13/16 at 10 :00 Collagenase (Santyl) 1 applic DAILY TOP Last administered on 03/01/17 09:00; Admin Dose 1 APPLIC; Start 01/04/17 at 09:00 Metoprolol Tartrate (Lopressor) 5 mg Q4 PRN IV FOR H.R>110; Start 01/12/17 at 17:30 Acetaminophen (Tylenol Liquid) 650 mg Q6H PRN NGT PAIN AND [place] ELEVATED TEMP Last administered on 03/01/17 10:25; Admin Dose 650 MG; Start 01/13/17 at 23:30 Acetaminophen/ Hydrocodone Bitart ([place] (5/325)) 1 tab Q6H PRN NGT PAIN LEVEL 4-7; Start 01/13/17 at 23:30 Levetiracetam (Keppra Liquid) 1,000 mg DAILY NGT Last administered on 10:26; Admin Dose 1,000 MG; Start 01/14/17 at 09:00 Meclizine HCl (Antivert) 25 mg TID PRN NGT dizziness; Start 01/13/17 at 20:00 Zolpidem Tartrate (Ambien) 5 mg HS PRN NGT INSOMNIA; Start 01/13/17 at 20:00 Metoprolol Tartrate (Lopressor) 12.5 mg BID NGT Last administered on 02/24/17 10:54; Admin Dose 12.5 MG; Start 01/24/17 at 21:00; Status Future Hold Nystatin (Nystatin Susp) 5 ml Q6 PO Last administered on 03/01/17 12:35; Admin Dose 5 ML; Start 01/31/17 at 12:00 Lansoprazole (Prevacid) 30 mg DAILY@06 GTB Last administered on 03/01/17 06:00 ; Admin Dose 30 MG; Start 02/09/17 at 06:00 Zinc Sulfate (Zinc Sulfate) 220 mg DAILY GTB Last administered on 03/01/17 10: 27; Admin Dose 220 MG; Start 02/14/17 at 15:00 Multivitamins (Multivitamin) 30 ml DAILY GTB Last administered on 03/01/17 10: 25; Admin Dose 30 ML; Start 02/14/17 at 16:30 Docusate Sodium (Colace Liquid Cup) 100 mg BID GTB Last administered on 10:25; Admin Dose 100 MG; Start 02/14/17 at 21:00 Apixaban (Eliquis) 2.5 mg BID GTB Last administered on 02/25/17 21:37; Admin Dose 2.5 MG; Start 02/14/17 at 21:00; Status Future hold Amiodarone HCl (Cordarone) 200 mg DAILY GTB Last administered on 03/01/17 10: 26; Admin Dose 200 MG; Start 02/19/17 at 09:00 Ascorbic Acid (Vitamin C) 500 mg DAILY GTB Last administered on 03/01/17 10:26 ; Admin Dose 500 MG; Start 02/22/17 at 09:00 Insulin Glargine (Lantus) 56 unit DAILY@20 SC Last administered on 02/28/17 20 :38; Admin Dose 56 UNIT; Start 02/22/17 at 20:00 Insulin Aspart NOVOLOG *MODERATE* ALGORI... Q4 SC Last administered on 12:47; Admin Dose 2 UNIT; Start 02/23/17 at 05:00 Sodium Chloride (NS) 1,000 ml @ 40 mls/hr Q24H IV Last administered on 14:30; Admin Dose 40 MLS/HR; Start 02/23/17 at 14:30 Metoclopramide HCl (Reglan) 5 mg Q6 IV Last administered on 03/01/17 12:35; Admin Dose 5 MG; Start 02/23/17 at 18:00 KIMBERLY NOYOLA Mar 01, 2017 17:44
--- NOTE | 2017-03-01 18:17 | CONS ---
YUMIKO ALATORRE NEONATAL NURSE PRACTITIONER 03/01/17 1817: Date/Time of Note Date/Time of Note DATE: 03/01/17 TIME: 18:12 Assessment/Plan Assessment/Plan Chief Complaint/Hosp Course - s/p recurrent sepsis due to pneumonia +/- funguria - treated with cefepime, tobramycin, and caspofungin - s/p recurrent pneumonia due to pseudomonas - s/p sepsis due to possible tracheobronchitis/pneumonia - funguria - thrush, refractory to nystatin - recurrent cardiopulmonary arrest on 12/09/2016 and on 01/08/2017 - hypoxic respiratory failure, intubated for the 2nd time on 12/12/2016; extubated 12/18/2016; re-intubated for the 3rd time 01/08/2017, s/p tracheostomy 06/2017 - bleeding from trach site - resolved - acute on chronic anemia due to acute blood loss, requiring blood transfusion - 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 Blood cultures from HD catheter on 12/13/2016 are negative to date. 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 MRI on 12/06/2016 and bone scan on showed early OM of the distal phalanx of the left great toe and left fourth proximal phalanx. superficial swab grew inna only. At present, no e/o persistent infection - recurrent pleural effusion - s/p right pleural effusion s/p thoracentesis with .9L removed on 12/16/2016; ( Note: there is no pleural fluid cx since orders were placed after Right thoracentesis, and Left thoracentesis was not performed on 12/17/16 d/t insufficient fluid) - ARANZA on CKD that progressed to ESRD and started on HD from 12/09/2016 - oliguria - improved - A fib -> PAF - small nonreversible perfusion abnormality in the inferoapical and inferior carver; EF 36% per Lexiscan 12/24/2016 - severe , EF 40-45% per TTE 12/17/16 - DM - Hgb A1c 8.7% - HTN associated with DM - acute encephalopathy with anoxic brain injury - unstageable decubitus ulcer of coccyx, no evidence of infection - dysphagia s/p G-tube placement 02/08/2017 NOTE: Pt completed 6 weeks (12/03/2016-01/15/2017) of antibiotics to treat early OM of the distal phalanx of the left great toe and left fourth proximal phalanx ; s/p pip/tazo 12/03/16-01/08/17; linezolid 01/08/17-01/20/17; caspofungin 01/12/17-01/21/17 and 02/04/17-02/17/17; tobramycin 02/04/2017- 02/15/17 for pseudomonas; cefepime 02/02/17-02/18/17 recommendations: - panculture if temp >100.4F - monitor closely off abx - continue nystatin for thrush - wound care of the coccyx and upper back Management d/w Vanessa FULLER and Dr. Moses Problems: Consultation Date/Type/Reason Admit Date/Time Dec 02, 2016 at 21:01 Initial Consult Date 12/03/16 Type of Consultation: Infectious Disease Referring Provider: VIET PARKER MD 24 HR Interval Summary Free Text/Dictation Pt had an episode of emesis yesterday but none today; tolerating GTF with no residuals. No definite schedule for debridement surgery yet. Placement and outpt HD already arranged by CM per d/w nursing staff. Exam/Review of Systems Vital Signs Vitals Vital Signs Date Time Temp Pulse Resp B/P Pulse Ox O2 Delivery O2 Flow Rate FiO2 03/01/17 17:05 71 16 97 30 03/01/17 15:47 98.6 117/59 02/27/17 04:00 Mechanical Ventilator Intake and Output 02/28/17 02/28/17 03/01/17 15:00 23:00 07:00 Intake Total 300 ml 1000 ml 1240 ml Output Total 2800 ml 2950 ml 250 ml Balance -2500 ml -1950 ml 990 ml Exam Constitutional: frail, chronically debilitated, non-communicative, well developed Head: atraumatic, normocephalic Eyes: nl conjunctiva, nl lids Neck: other (tracheostomy intact - no bleeding noted) Respiratory: essentially clear anteriorly Cardiovascular: nl pulses, regular rate and rhythm Gastrointestinal: non-tender, soft, G-tube with tube feeds intact Genitourinary - Male: nl penis, nl scrotum, other (Condom catheter currently NOT in place and urine noted on wash cloth) Musculoskeletal: nl extremities to inspection Extremities: No edema Neurological: lethargic/asleep Skin: nl turgor, other (wounds: see nurse note and photos in chart for details ; decub on the coccyx) Results Result Diagram: 03/01/1733 03/01/17 0733 Results 24 hrs Laboratory Tests Test 02/28/17 20:34 03/01/17 00:32 03/01/17 05:58 03/01/17 07:33 Bedside Glucose 212 159 118 White Blood Count 12.5 #H Red Blood Count 3.08 L Hemoglobin 8.9 L Hematocrit 28.0 L Mean Corpuscular Volume 90.9 Mean Corpuscular Hemoglobin 28.9 L Mean Corpuscular Hemoglobin Concent 31.8 L Red Cell Distribution Width 14.6 H Platelet Count 191 Mean Platelet Volume 10.0 Neutrophils % 79.1 H Lymphocytes % 10.1 L Monocytes % 8.5 Eosinophils % 0.7 Basophils % 0.2 Nucleated Red Blood Cells % 0.0 Neutrophils # 9.9 H Lymphocytes # 1.3 Monocytes # 1.1 H Eosinophils # 0.1 Basophils # 0.0 Nucleated Red Blood Cells # 0.0 Sodium Level 140 Potassium Level 3.8 Chloride Level 97 Carbon Dioxide Level 32 H Anion Gap 15 Blood Urea Nitrogen 46 #H Creatinine 0.77 Glucose Level 130 Calcium Level 8.1 L Test 03/01/17 10:25 03/01/17 12:36 03/01/17 17:16 Bedside Glucose 153 162 149 Medications Medications Current Medications Ondansetron HCl (Zofran Inj) 4 mg Q6H PRN IV NAUSEA AND/OR VOMITING Last administered on 02/23/17 12:49; Admin Dose 4 MG; Start 12/02/16 at 22:30 Miscellaneous Information 1 ea NOTE XX ; Start 12/02/16 at 23:00 Glucose (Glutose) 15 gm Q15M PRN PO DECREASED GLUCOSE; Start 12/02/16 at 23:00 Glucose (Glutose) 22.5 gm Q15M PRN PO DECREASED GLUCOSE; Start 12/02/16 at 23: 00 Dextrose (D50w Syringe) 25 ml Q15M PRN IV DECREASED GLUCOSE Last administered on 02/24/17 05:56; Admin Dose 25 ML; Start 12/02/16 at 23:00 Dextrose (D50w Syringe) 50 ml Q15M PRN IV DECREASED GLUCOSE Last administered on 01/23/17 04:58; Admin Dose 50 ML; Start 12/02/16 at 23:00 Glucagon (Glucagen) 1 mg Q15M PRN IM DECREASED GLUCOSE; Start 12/02/16 at 23:00 Glucose (Glutose) 15 gm Q15M PRN BUCCAL DECREASED GLUCOSE; Start 12/02/16 at 23 :00 Acetaminophen (Tylenol Supp) 650 mg Q6H PRN [place] ELEVATED TEMPERATURE Last administered on 01/13/17 20:32; Admin Dose 650 MG; Start 12/09/16 at 17:00 Hydralazine HCl (Apresoline) 10 mg Q6H PRN IV SBP>150mm hg Last administered on 12/19/16 08:50; Admin Dose 10 MG; Start 12/11/16 at 10:30 Morphine Sulfate (morphine) 2 mg Q2H PRN IV PAIN LEVEL 4-7; Start 12/13/16 at 10 :00 Collagenase (Santyl) 1 applic DAILY TOP Last administered on 03/01/17 09:00; Admin Dose 1 APPLIC; Start 01/04/17 at 09:00 Metoprolol Tartrate (Lopressor) 5 mg Q4 PRN IV FOR H.R>110; Start 01/12/17 at 17:30 Acetaminophen (Tylenol Liquid) 650 mg Q6H PRN NGT PAIN AND OR ELEVATED TEMP Last administered on 03/01/17 10:25; Admin Dose 650 MG; Start 01/13/17 at 23:30 Acetaminophen/ Hydrocodone Bitart ([place] (5/325)) 1 tab Q6H PRN NGT PAIN LEVEL 4-7; Start 01/13/17 at 23:30 Levetiracetam (Keppra Liquid) 1,000 mg DAILY NGT Last administered on 10:26; Admin Dose 1,000 MG; Start 01/14/17 at 09:00 Meclizine HCl (Antivert) 25 mg TID PRN NGT dizziness; Start 01/13/17 at 20:00 Zolpidem Tartrate (Ambien) 5 mg HS PRN NGT INSOMNIA; Start 01/13/17 at 20:00 Metoprolol Tartrate (Lopressor) 12.5 mg BID NGT Last administered on 02/24/17 10:54; Admin Dose 12.5 MG; Start 01/24/17 at 21:00; Status Future Hold Nystatin (Nystatin Susp) 5 ml Q6 PO Last administered on 03/01/17 12:35; Admin Dose 5 ML; Start 01/31/17 at 12:00 Lansoprazole (Prevacid) 30 mg DAILY@06 GTB Last administered on 03/01/17 06:00 ; Admin Dose 30 MG; Start 02/09/17 at 06:00 Zinc Sulfate (Zinc Sulfate) 220 mg DAILY GTB Last administered on 03/01/17 10: 27; Admin Dose 220 MG; Start 02/14/17 at 15:00 Multivitamins (Multivitamin) 30 ml DAILY GTB Last administered on 03/01/17 10: 25; Admin Dose 30 ML; Start 02/14/17 at 16:30 Docusate Sodium (Colace Liquid Cup) 100 mg BID GTB Last administered on 10:25; Admin Dose 100 MG; Start 02/14/17 at 21:00 Apixaban (Eliquis) 2.5 mg BID GTB Last administered on 02/25/17 21:37; Admin Dose 2.5 MG; Start 02/14/17 at 21:00; Status Future hold Amiodarone HCl (Cordarone) 200 mg DAILY GTB Last administered on 03/01/17 10: 26; Admin Dose 200 MG; Start 02/19/17 at 09:00 Ascorbic Acid (Vitamin C) 500 mg DAILY GTB Last administered on 03/01/17 10:26 ; Admin Dose 500 MG; Start 02/22/17 at 09:00 Insulin Glargine (Lantus) 56 unit DAILY@20 SC Last administered on 02/28/17 20 :38; Admin Dose 56 UNIT; Start 02/22/17 at 20:00 Insulin Aspart NOVOLOG *MODERATE* ALGORI... Q4 SC Last administered on 12:47; Admin Dose 2 UNIT; Start 02/23/17 at 05:00 Sodium Chloride (NS) 1,000 ml @ 40 mls/hr Q24H IV Last administered on 14:30; Admin Dose 40 MLS/HR; Start 02/23/17 at 14:30 Metoclopramide HCl (Reglan) 5 mg Q6 IV Last administered on 03/01/17 12:35; Admin Dose 5 MG; Start 02/23/17 at 18:00 CHRISTY MOSES M.D. 03/02/17 1252: Assessment/Plan Assessment/Plan Additional Assessment/Plan Aurelia: I discussed the management with ELODIA Alatorre and agree with above Exam/Review of Systems Results Result Diagram: 03/01/17 0733 03/01/17 0733 YUMIKO ALATORRE NP Mar 01, 2017 18:17 CHRISTY MOSES M.D. Mar 02, 2017 12:52
[2017-03-01] MEDS: INSULIN GLARGINE [LANtus] 3 ML PEN SC SCH (21:25)
[2017-03-02] VITALS (31 sets, daily range): BP systolic 73–129; BP diastolic 25–66; PULSE 72–88; RESP 16–20
[2017-03-02] MEDS: METOCLOPRAMIDE 10 MG INJ IV SCH ×4 (00:37→18:05)
[2017-03-02] MEDS: NYSTATIN SUSP 5 ML CUP PO SCH ×4 (00:37→18:05)
[2017-03-02] MEDS: INSULIN ASPART [NOVOLOG] 3 ML PEN SC SCH ×6 (00:46→20:34)
[2017-03-02] MEDS: ALBUTEROL 18 GM INHALER INH SCH ×4 (01:15→20:15)
[2017-03-02] MEDS: LANSOPRAZOLE 30 MG CAP GTB SCH (05:34)
[2017-03-02 07:45] LABS: ADD SCAN DIFF NO
[2017-03-02 07:51] LABS: BASOPHILS % 0.1 % (0.0-2.0); EOSINOPHILS # 0.1 10^3/ul (0.0-0.5); EOSINOPHILS % 0.4 % (0.0-7.0); HEMATOCRIT 27.9 % (42.0-52.0); HEMOGLOBIN 8.9 g/dl (14.0-18.0); LYMPHOCYTES % 7.5 % (15.0-51.0); MEAN CORPUSCULAR HEMOGLOBIN 28.5 pg (29.0-33.0); MEAN CORPUSCULAR HGB CONC 31.9 g/dl (32.0-37.0); MEAN CORPUSCULAR VOLUME 89.4 fl (82.0-101.0); MEAN PLATELET VOLUME 9.6 fl (7.4-10.4); MONOCYTES % 8.1 % (0.0-11.0); NEUTROPHIL # 10.5 10^3/ul (1.6-7.5); NEUTROPHILS % 82.7 % (39.0-77.0); PLATELET COUNT 197 10^3/UL (140-415); RED BLOOD COUNT 3.12 10^6/ul (4.70-6.10); RED CELL DISTRIBUTION WIDTH 14.6 % (11.5-14.5); WHITE BLOOD COUNT 12.7 10^3/ul (4.8-10.8)
[2017-03-02 08:42] LABS: CALCIUM 8.1 mg/dl (8.4-10.2); CREATININE 0.79 mg/dl (0.61-1.24)
[2017-03-02] MEDS: APIXABAN 5 MG TABLET GTB SCH ×3 (09:00→20:33)
[2017-03-02] MEDS: DOCUSATE SODIUM 10 MG/ML (10ML CUP) GTB SCH ×2 (09:50→20:33)
[2017-03-02] MEDS: ZINC SULFATE 220 MG CAP GTB SCH (09:51)
[2017-03-02] MEDS: MULTIVITAMINS 30 ML CUP GTB SCH (09:51)
[2017-03-02] MEDS: ASCORBIC ACID 500 MG TAB GTB SCH (09:51)
[2017-03-02] MEDS: LEVETIRACETAM (100 MG/ML) 5ML CUP NGT SCH (09:51)
[2017-03-02] MEDS: COLLAGENASE 30 GM TUBE TOP SCH (09:52)
[2017-03-02] MEDS: AMIODARONE 200 MG TAB GTB SCH (09:53)
--- NOTE | 2017-03-02 09:59 | CONS ---
Date/Time of Note Date/Time of Note DATE: 03/02/17 TIME: 09:47 Assessment/Plan Assessment/Plan Additional Assessment/Plan -S/p cardiopulmonary arrest on 12/09/2016 and on 01/08/2017 - 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 Blood cultures from HD catheter on 12/13/2016 are negative to date. 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 MRI on 12/06/2016 and bone scan on showed early OM of the distal phalanx of the left great toe and left fourth proximal phalanx. superficial swab grew inna only - s/p right pleural effusion s/p thoracentesis with .9L removed on 12/16/2016 - severe , EF 40-45% per TTE 12/17/16 - DM - Hgb A1c 8.7% - HTN associated with DM - sp Tracheostomy site bleeding Plan: HD today, will conitnue HD on MWF HD today, - H/H- 8.9/27.9 s/p Tracheostomy, on ventilator pt will need HD palcement at a unit where they can do a HD for pt with tracheostomy and PEG tube placemen t- pillowcase folder has been instructed to set up renal jeddo pt has severe , very labile BP sometimes with HD will continue to follow up for HD need Plan of`care Dw Dr Evelina Remy/staff Consultation Date/Type/Reason Admit Date/Time Dec 02, 2016 at 21:01 Initial Consult Date 12/08/16 Type of Consultation: Infectious Disease Referring Provider: VIET PARKER MD 24 HR Interval Summary Free Text/Dictation Plan for sacral decub - cleared from cardiology being at high risk. [facility] staff. Got Placement at [facility]. Subjective hx not possible: pt non-verbal Constitutional: requiring IVF, requiring O2 Exam/Review of Systems Vital Signs Vitals Vital Signs Date Time Temp Pulse Resp B/P Pulse Ox O2 Delivery O2 Flow Rate FiO2 03/02/17 08:40 83 03/02/17 06:56 100.0 17 115/54 98 03/02/17 05:42 30 02/27/17 04:00 Mechanical Ventilator Intake and Output 03/01/17 03/01/17 03/02/17 15:00 23:00 07:00 Intake Total 700 ml 570 ml Output Total 700 ml 800 ml Balance 0 ml -230 ml Exam Constitutional: non-verbal, well developed Respiratory: clear to auscultation, normal air movement Cardiovascular: other (SR - HR 81) Gastrointestinal: non-tender, other (GT intact, tolerates GT feedings), soft Musculoskeletal: muscle weakness Extremities: normal pulses Neurological: nl speech, unresponsive Skin: other (decubs) Results Result Diagram: 03/02/17 0730 03/02/17 0730 Results 24 hrs Laboratory Tests Test 03/01/17 10:25 03/01/17 12:36 03/01/17 17:16 03/01/17 21:20 Bedside Glucose 153 162 149 161 Test 03/02/17 00:37 03/02/17 05:33 03/02/17 07:30 Bedside Glucose 145 106 White Blood Count 12.7 H Red Blood Count 3.12 L Hemoglobin 8.9 L Hematocrit 27.9 L Mean Corpuscular Volume 89.4 Mean Corpuscular Hemoglobin 28.5 L Mean Corpuscular Hemoglobin Concent 31.9 L Red Cell Distribution Width 14.6 H Platelet Count 197 Mean Platelet Volume 9.6 Neutrophils % 82.7 H Lymphocytes % 7.5 L Monocytes % 8.1 Eosinophils % 0.4 Basophils % 0.1 Nucleated Red Blood Cells % 0.0 Neutrophils # 10.5 H Lymphocytes # 1.0 Monocytes # 1.0 H Eosinophils # 0.1 Basophils # 0.0 Nucleated Red Blood Cells # 0.0 Sodium Level 145 H Potassium Level 4.0 Chloride Level 98 Carbon Dioxide Level 31 Anion Gap 20 H Blood Urea Nitrogen 50 H Creatinine 0.79 Glucose Level 86 # Calcium Level 8.1 L Medications Medications Current Medications Ondansetron HCl (Zofran Inj) 4 mg Q6H PRN IV NAUSEA AND/OR VOMITING Last administered on 02/23/17t 12:49; Admin Dose 4 MG; Start 12/02/16 at 22:30 Miscellaneous Information 1 ea NOTE XX ; Start 12/02/16 at 23:00 Glucose (Glutose) 15 gm Q15M PRN PO DECREASED GLUCOSE; Start 12/02/16 at 23:00 Glucose (Glutose) 22.5 gm Q15M PRN PO DECREASED GLUCOSE; Start 12/02/16 at 23: 00 Dextrose (D50w Syringe) 25 ml Q15M PRN IV DECREASED GLUCOSE Last administered on 02/24/17 05:56; Admin Dose 25 ML; Start 12/02/16 at 23:00 Dextrose (D50w Syringe) 50 ml Q15M PRN IV DECREASED GLUCOSE Last administered on 01/23/17 04:58; Admin Dose 50 ML; Start 12/02/16 at 23:00 Glucagon (Glucagen) 1 mg Q15M PRN IM DECREASED GLUCOSE; Start 12/02/16 at 23:00 Glucose (Glutose) 15 gm Q15M PRN BUCCAL DECREASED GLUCOSE; Start 12/02/16 at 23 :00 Acetaminophen (Tylenol Supp) 650 mg Q6H PRN [place] ELEVATED TEMPERATURE Last administered on 01/13/17 20:32; Admin Dose 650 MG; Start 12/09/16 at 17:00 Hydralazine HCl (Apresoline) 10 mg Q6H PRN IV SBP>150mm hg Last administered on 12/19/16 08:50; Admin Dose 10 MG; Start 12/11/16 at 10:30 Morphine Sulfate (morphine) 2 mg Q2H PRN IV PAIN LEVEL 4-7; Start 12/13/16 at 10 :00 Collagenase (Santyl) 1 applic DAILY TOP Last administered on 03/01/17 09:00; Admin Dose 1 APPLIC; Start 01/04/17 at 09:00 Metoprolol Tartrate (Lopressor) 5 mg Q4 PRN IV FOR H.R>110; Start 01/12/17 at 17:30 Acetaminophen (Tylenol Liquid) 650 mg Q6H PRN NGT PAIN AND OR ELEVATED TEMP Last administered on 03/01/17 10:25; Admin Dose 650 MG; Start 01/13/17 at 23:30 Acetaminophen/ Hydrocodone Bitart ([place] (5/325)) 1 tab Q6H PRN NGT PAIN LEVEL 4-7; Start 01/13/17 at 23:30 Levetiracetam (Keppra Liquid) 1,000 mg DAILY NGT Last administered on 10:26; Admin Dose 1,000 MG; Start 01/14/17 at 09:00 Meclizine HCl (Antivert) 25 mg TID PRN NGT dizziness; Start 01/13/17 at 20:00 Zolpidem Tartrate (Ambien) 5 mg HS PRN NGT INSOMNIA; Start 01/13/17 at 20:00 Metoprolol Tartrate (Lopressor) 12.5 mg BID NGT Last administered on 02/24/17 10:54; Admin Dose 12.5 MG; Start 01/24/17 at 21:00; Status Future Hold Nystatin (Nystatin Susp) 5 ml Q6 PO Last administered on 03/02/17 05:33; Admin Dose 5 ML; Start 01/31/17 at 12:00 Lansoprazole (Prevacid) 30 mg DAILY@06 GTB Last administered on 03/02/17 05:34 ; Admin Dose 30 MG; Start 02/09/17 at 06:00 Zinc Sulfate (Zinc Sulfate) 220 mg DAILY GTB Last administered on 03/01/17 10: 27; Admin Dose 220 MG; Start 02/14/17 at 15:00 Multivitamins (Multivitamin) 30 ml DAILY GTB Last administered on 03/01/17 10: 25; Admin Dose 30 ML; Start 02/14/17 at 16:30 Docusate Sodium (Colace Liquid Cup) 100 mg BID GTB Last administered on 21:19; Admin Dose 100 MG; Start 02/14/17 at 21:00 Apixaban (Eliquis) 2.5 mg BID GTB Last administered on 02/25/17 21:37; Admin Dose 2.5 MG; Start 02/14/17 at 21:00; Status Future hold Amiodarone HCl (Cordarone) 200 mg DAILY GTB Last administered on 03/01/17 10: 26; Admin Dose 200 MG; Start 02/19/17 at 09:00 Ascorbic Acid (Vitamin C) 500 mg DAILY GTB Last administered on 03/01/17 10:26 ; Admin Dose 500 MG; Start 02/22/17 at 09:00 Insulin Glargine (Lantus) 56 unit DAILY@20 SC Last administered on 03/01/17 21 :25; Admin Dose 56 UNIT; Start 02/22/17 at 20:00 Insulin Aspart NOVOLOG *MODERATE* ALGORI... Q4 SC Last administered on 00:46; Admin Dose 2 UNIT; Start 02/23/17 at 05:00 Sodium Chloride (NS) 1,000 ml @ 40 mls/hr Q24H IV Last administered on 14:30; Admin Dose 40 MLS/HR; Start 02/23/17 at 14:30 Metoclopramide HCl (Reglan) 5 mg Q6 IV Last administered on 03/02/17 05:33; Admin Dose 5 MG; Start 02/23/17 at 18:00 YULIANA SIMMONS Mar 02, 2017 09:59
[2017-03-02] MEDS: ACETAMINOPHEN 650MG/20.3ML CUP NGT PRN (10:36)
--- NOTE | 2017-03-02 12:45 | CONS ---
Date/Time of Note Date/Time of Note DATE: 03/02/17 TIME: 12:42 Assessment/Plan Assessment/Plan Chief Complaint/Hosp Course IMPRESSION: 1. Atrial fibrillation-Having episodes of PAF with reasonable rate control. Currently remains in SR. Had pause approximately 4 seconds this am ? if was during suctioning. No recurrent pause since holding of BB 2. Hypotension-overall improved and stable 3. Abnormal electrocardiogram with inferolateral T-wave inversions. 4. Respiratory failure-s/p trach placement 5. Nonhealing toe ulceration-vascular following 6. Peripheral arterial disease by arterial ultrasound of the lower extremities this admission. 7. Diabetes mellitus. 8. Fevers. 9. Positive troponin-downtrended 10.Bradycardia-improved/stable 11.-severe by echo 12.Cardiomyopathy-EF 40-45% by echo/36% by stress with no ischemia but positive scar. EF <30% by echo post arrest 13.Encephalopathy-anoxic 14. s/p cardiopulmonary arrest 01/08 15. Pre-op-for debridemnt of decubitis ulcer- Patient at this time has no definite cardiac contraindication to proceeding to OR for debridement but is at high risk for CV complications due to severe and cardiomyopathy 16. Hypernatremia-resolved Recc: -Tele -serial ecg -HD for volume removal as tolerated ongoing today -Eliquis resumed -Continue PO amio in attempt to maintain SR, daily and follow for any recurrent pauses -Will hold on afterload reduction given severe and thus fixed afterload at valve orifice -Continue to hold BB and follow for recurrent pause Problems: Consultation Date/Type/Reason Admit Date/Time Dec 02, 2016 at 21:01 Initial Consult Date 12/03/16 Type of Consultation: cardiology Reason for Consultation cardiomyopathy/as/AF Referring Provider: VIET PARKER MD Exam/Review of Systems Vital Signs Vitals Vital Signs Date Time Temp Pulse Resp B/P Pulse Ox O2 Delivery O2 Flow Rate FiO2 03/02/17 12:36 78 03/02/17 11:09 98.3 18 119/54 96 03/02/17 05:42 30 02/27/17 04:00 Mechanical Ventilator Intake and Output 03/01/17 03/01/17 03/02/17 15:00 23:00 07:00 Intake Total 700 ml 570 ml Output Total 700 ml 800 ml Balance 0 ml -230 ml Exam Review of Systems: CONSTITUTIONAL: No fevers, chills. PULMONARY: trached CARDIOVASCULAR: No obvious chest pain/palpitations GASTROINTESTINAL: No nausea/vomiting. GENITOURINARY: No hematuria/dysuria. MUSCULOSKELETAL: No obvious myagias/arthalgias. PSYCHIATRIC: No docuemented depression. NEUROLOGIC: encephalopathy Constitutional: alert, oriented Psych: no complaints Head: normocephalic ENMT: mucosa pink and moist Neck: jvd (9 cm water), supple Respiratory: diminished breath sounds (at bases/B) Cardiovascular: regular rate and rhythm Gastrointestinal: non-tender, soft Musculoskeletal: muscle tone Extremities: edema (none) Neurological: other (No focal deficits) Results Result Diagram: 03/02/17 0730 03/02/17 0730 Results 24 hrs Laboratory Tests Test 03/01/17 17:16 03/01/17 21:20 03/02/17 00:37 03/02/17 05:33 Bedside Glucose 149 161 145 106 Test 03/02/17 07:30 03/02/17 09:49 White Blood Count 12.7 H Red Blood Count 3.12 L Hemoglobin 8.9 L Hematocrit 27.9 L Mean Corpuscular Volume 89.4 Mean Corpuscular Hemoglobin 28.5 L Mean Corpuscular Hemoglobin Concent 31.9 L Red Cell Distribution Width 14.6 H Platelet Count 197 Mean Platelet Volume 9.6 Neutrophils % 82.7 H Lymphocytes % 7.5 L Monocytes % 8.1 Eosinophils % 0.4 Basophils % 0.1 Nucleated Red Blood Cells % 0.0 Neutrophils # 10.5 H Lymphocytes # 1.0 Monocytes # 1.0 H Eosinophils # 0.1 Basophils # 0.0 Nucleated Red Blood Cells # 0.0 Sodium Level 145 H Potassium Level 4.0 Chloride Level 98 Carbon Dioxide Level 31 Anion Gap 20 H Blood Urea Nitrogen 50 H Creatinine 0.79 Glucose Level 86 # Calcium Level 8.1 L Bedside Glucose 106 Medications Medications Current Medications Ondansetron HCl (Zofran Inj) 4 mg Q6H PRN IV NAUSEA AND/OR VOMITING Last administered on 02/23/17 12:49; Admin Dose 4 MG; Start 12/02/16 at 22:30 Miscellaneous Information 1 ea NOTE XX ; Start 12/02/16 at 23:00 Glucose (Glutose) 15 gm Q15M PRN PO DECREASED GLUCOSE; Start 12/02/16 at 23:00 Glucose (Glutose) 22.5 gm Q15M PRN PO DECREASED GLUCOSE; Start 12/02/16 at 23: 00 Dextrose (D50w Syringe) 25 ml Q15M PRN IV DECREASED GLUCOSE Last administered on 02/24/17 05:56; Admin Dose 25 ML; Start 12/02/16 at 23:00 Dextrose (D50w Syringe) 50 ml Q15M PRN IV DECREASED GLUCOSE Last administered on 01/23/17 04:58; Admin Dose 50 ML; Start 12/02/16 at 23:00 Glucagon (Glucagen) 1 mg Q15M PRN IM DECREASED GLUCOSE; Start 12/02/16 at 23:00 Glucose (Glutose) 15 gm Q15M PRN BUCCAL DECREASED GLUCOSE; Start 12/02/16 at 23 :00 Acetaminophen (Tylenol Supp) 650 mg Q6H PRN [place] ELEVATED TEMPERATURE Last administered on 01/13/17 20:32; Admin Dose 650 MG; Start 12/09/16 at 17:00 Hydralazine HCl (Apresoline) 10 mg Q6H PRN IV SBP>150mm hg Last administered on 12/19/16 08:50; Admin Dose 10 MG; Start 12/11/16 at 10:30 Morphine Sulfate (morphine) 2 mg Q2H PRN IV PAIN LEVEL 4-7; Start 12/13/16 at 10 :00 Collagenase (Santyl) 1 applic DAILY TOP Last administered on 03/02/17 09:52; Admin Dose 1 APPLIC; Start 01/04/17 at 09:00 Metoprolol Tartrate (Lopressor) 5 mg Q4 PRN IV FOR H.R>110; Start 01/12/17 at 17:30 Acetaminophen (Tylenol Liquid) 650 mg Q6H PRN NGT PAIN AND [place] ELEVATED TEMP Last administered on 03/02/17 10:36; Admin Dose 650 MG; Start 01/13/17 at 23:30 Acetaminophen/ Hydrocodone Bitart ([place] (5/325)) 1 tab Q6H PRN NGT PAIN LEVEL 4-7; Start 01/13/17 at 23:30 Levetiracetam (Keppra Liquid) 1,000 mg DAILY NGT Last administered on 09:51; Admin Dose 1,000 MG; Start 01/14/17 at 09:00 Meclizine HCl (Antivert) 25 mg TID PRN NGT dizziness; Start 01/13/17 at 20:00 Zolpidem Tartrate (Ambien) 5 mg HS PRN NGT INSOMNIA; Start 01/13/17 at 20:00 Metoprolol Tartrate (Lopressor) 12.5 mg BID NGT Last administered on 02/24/17 10:54; Admin Dose 12.5 MG; Start 01/24/17 at 21:00; Status Future Hold Nystatin (Nystatin Susp) 5 ml Q6 PO Last administered on 03/02/17 05:33; Admin Dose 5 ML; Start 01/31/17 at 12:00 Lansoprazole (Prevacid) 30 mg DAILY@06 GTB Last administered on 03/02/17 05:34 ; Admin Dose 30 MG; Start 02/09/17 at 06:00 Zinc Sulfate (Zinc Sulfate) 220 mg DAILY GTB Last administered on 03/02/17 09: 51; Admin Dose 220 MG; Start 02/14/17 at 15:00 Multivitamins (Multivitamin) 30 ml DAILY GTB Last administered on 03/02/17 09: 51; Admin Dose 30 ML; Start 02/14/17 at 16:30 Docusate Sodium (Colace Liquid Cup) 100 mg BID GTB Last administered on 09:50; Admin Dose 100 MG; Start 02/14/17 at 21:00 Apixaban (Eliquis) 2.5 mg BID GTB Last administered on 02/25/17 21:37; Admin Dose 2.5 MG; Start 02/14/17 at 21:00; Status Future hold Amiodarone HCl (Cordarone) 200 mg DAILY GTB Last administered on 03/02/17 09: 53; Admin Dose 200 MG; Start 02/19/17 at 09:00 Ascorbic Acid (Vitamin C) 500 mg DAILY GTB Last administered on 03/02/17 09:51 ; Admin Dose 500 MG; Start 02/22/17 at 09:00 Insulin Glargine (Lantus) 56 unit DAILY@20 SC Last administered on 03/01/17 21 :25; Admin Dose 56 UNIT; Start 02/22/17 at 20:00 Insulin Aspart NOVOLOG *MODERATE* ALGORI... Q4 SC Last administered on 00:46; Admin Dose 2 UNIT; Start 02/23/17 at 05:00 Sodium Chloride (NS) 1,000 ml @ 40 mls/hr Q24H IV Last administered on 14:30; Admin Dose 40 MLS/HR; Start 02/23/17 at 14:30 Metoclopramide HCl (Reglan) 5 mg Q6 IV Last administered on 03/02/17 05:33; Admin Dose 5 MG; Start 02/23/17 at 18:00 VICENTE LESLIE Mar 02, 2017 12:45
--- NOTE | 2017-03-02 12:56 | CONS ---
Date/Time of Note Date/Time of Note DATE: 03/02/17 TIME: 12:53 Assessment/Plan Assessment/Plan Chief Complaint/Hosp Course - leukocytosis and low grade temp - s/p recurrent sepsis due to pneumonia - treated with cefepime, tobramycin, and caspofungin - s/p recurrent pneumonia due to pseudomonas - s/p sepsis due to possible tracheobronchitis/pneumonia - funguria - thrush, refractory to nystatin - recurrent cardiopulmonary arrest on 12/09/2016 and on 01/08/2017 - hypoxic respiratory failure, intubated for the 2nd time on 12/12/2016; extubated 12/18/2016; re-intubated for the 3rd time 01/08/2017, s/p tracheostomy 06/2017 - bleeding from trach site - resolved - acute on chronic anemia due to acute blood loss, requiring blood transfusion - 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 Blood cultures from HD catheter on 12/13/2016 are negative to date. 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 MRI on 12/06/2016 and bone scan on showed early OM of the distal phalanx of the left great toe and left fourth proximal phalanx. superficial swab grew inna only. At present, no e/o persistent infection - recurrent pleural effusion - s/p right pleural effusion s/p thoracentesis with .9L removed on 12/16/2016; ( Note: there is no pleural fluid cx since orders were placed after Right thoracentesis, and Left thoracentesis was not performed on 12/17/16 d/t insufficient fluid) - ARANZA on CKD that progressed to ESRD and started on HD from 12/09/2016 - oliguria - improved - A fib -> PAF - small nonreversible perfusion abnormality in the inferoapical and inferior carver; EF 36% per Lexiscan 12/24/2016 - severe , EF 40-45% per TTE 12/17/16 - DM - Hgb A1c 8.7% - HTN associated with DM - acute encephalopathy with anoxic brain injury - unstageable decubitus ulcer of coccyx, no evidence of infection - dysphagia s/p G-tube placement 02/08/2017 NOTE: Pt completed 6 weeks (12/03/2016-01/15/2017) of antibiotics to treat early OM of the distal phalanx of the left great toe and left fourth proximal phalanx ; s/p pip/tazo 12/03/16-01/08/17; linezolid 01/08/17-01/20/17; caspofungin 01/12/17-01/21/17 and 02/04/17-02/17/17; tobramycin 02/04/2017- 02/15/17 for pseudomonas; cefepime 02/02/17-02/18/17 recommendations: - I recommend and have ordered: blood culture (peripheral, HD catheter x2), resp culture, urine culture, urinalysis for surveillance (low grade temp, leukocytosis) - wound care of the coccyx and upper back management d/w RN and [employer] Lexie Problems: Consultation Date/Type/Reason Admit Date/Time Dec 02, 2016 at 21:01 Initial Consult Date 12/03/16 Type of Consultation: ID Referring Provider: VIET PARKER MD 24 HR Interval Summary Subjective hx not possible: pt non-verbal Exam/Review of Systems Vital Signs Vitals Vital Signs Date Time Temp Pulse Resp B/P Pulse Ox O2 Delivery O2 Flow Rate FiO2 03/02/17 12:36 78 03/02/17 11:10 19 98 30 03/02/17 11:09 98.3 119/54 02/27/17 04:00 Mechanical Ventilator Intake and Output 03/01/17 03/01/17 03/02/17 15:00 23:00 07:00 Intake Total 700 ml 570 ml Output Total 700 ml 800 ml Balance 0 ml -230 ml Exam Constitutional: non-verbal Psych: confusion Head: atraumatic, normocephalic Eyes: nl conjunctiva, nl lids ENMT: nl external ears & nose, nl lips & teeth Neck: other (trach) Respiratory: clear to auscultation, normal air movement Cardiovascular: nl pulses, regular rate and rhythm Gastrointestinal: non-tender, soft Extremities: No edema Neurological: lethargic Skin: rash or lesions (decubitus ulcer is clean, non-purulent, well vascularized tissue) Results Result Diagram: 03/02/17 0730 03/02/17 0730 Results 24 hrs Laboratory Tests Test 03/01/17 17:16 03/01/17 21:20 03/02/17 00:37 03/02/17 05:33 Bedside Glucose 149 161 145 106 Test 03/02/17 07:30 03/02/17 09:49 White Blood Count 12.7 H Red Blood Count 3.12 L Hemoglobin 8.9 L Hematocrit 27.9 L Mean Corpuscular Volume 89.4 Mean Corpuscular Hemoglobin 28.5 L Mean Corpuscular Hemoglobin Concent 31.9 L Red Cell Distribution Width 14.6 H Platelet Count 197 Mean Platelet Volume 9.6 Neutrophils % 82.7 H Lymphocytes % 7.5 L Monocytes % 8.1 Eosinophils % 0.4 Basophils % 0.1 Nucleated Red Blood Cells % 0.0 Neutrophils # 10.5 H Lymphocytes # 1.0 Monocytes # 1.0 H Eosinophils # 0.1 Basophils # 0.0 Nucleated Red Blood Cells # 0.0 Sodium Level 145 H Potassium Level 4.0 Chloride Level 98 Carbon Dioxide Level 31 Anion Gap 20 H Blood Urea Nitrogen 50 H Creatinine 0.79 Glucose Level 86 # Calcium Level 8.1 L Bedside Glucose 106 Medications Medications Current Medications Ondansetron HCl (Zofran Inj) 4 mg Q6H PRN IV NAUSEA AND/OR VOMITING Last administered on 02/23/17 12:49; Admin Dose 4 MG; Start 12/02/16 at 22:30 Miscellaneous Information 1 ea NOTE XX ; Start 12/02/16 at 23:00 Glucose (Glutose) 15 gm Q15M PRN PO DECREASED GLUCOSE; Start 12/02/16 at 23:00 Glucose (Glutose) 22.5 gm Q15M PRN PO DECREASED GLUCOSE; Start 12/02/16 at 23: 00 Dextrose (D50w Syringe) 25 ml Q15M PRN IV DECREASED GLUCOSE Last administered on 02/24/17 05:56; Admin Dose 25 ML; Start 12/02/16 at 23:00 Dextrose (D50w Syringe) 50 ml Q15M PRN IV DECREASED GLUCOSE Last administered on 01/23/17 04:58; Admin Dose 50 ML; Start 12/02/16 at 23:00 Glucagon (Glucagen) 1 mg Q15M PRN IM DECREASED GLUCOSE; Start 12/02/16 at 23:00 Glucose (Glutose) 15 gm Q15M PRN BUCCAL DECREASED GLUCOSE; Start 12/02/16 at 23 :00 Acetaminophen (Tylenol Supp) 650 mg Q6H PRN [place] ELEVATED TEMPERATURE Last administered on 01/13/17 20:32; Admin Dose 650 MG; Start 12/09/16 at 17:00 Hydralazine HCl (Apresoline) 10 mg Q6H PRN IV SBP>150mm hg Last administered on 12/19/16 08:50; Admin Dose 10 MG; Start 12/11/16 at 10:30 Morphine Sulfate (morphine) 2 mg Q2H PRN IV PAIN LEVEL 4-7; Start 12/13/16 at 10 :00 Collagenase (Santyl) 1 applic DAILY TOP Last administered on 03/02/17 09:52; Admin Dose 1 APPLIC; Start 01/04/17 at 09:00 Metoprolol Tartrate (Lopressor) 5 mg Q4 PRN IV FOR H.R>110; Start 01/12/17 at 17:30 Acetaminophen (Tylenol Liquid) 650 mg Q6H PRN NGT PAIN AND OR ELEVATED TEMP Last administered on 03/02/17 10:36; Admin Dose 650 MG; Start 01/13/17 at 23:30 Acetaminophen/ Hydrocodone Bitart ([place] (5/325)) 1 tab Q6H PRN NGT PAIN LEVEL 4-7; Start 01/13/17 at 23:30 Levetiracetam (Keppra Liquid) 1,000 mg DAILY NGT Last administered on 09:51; Admin Dose 1,000 MG; Start 01/14/17 at 09:00 Meclizine HCl (Antivert) 25 mg TID PRN NGT dizziness; Start 01/13/17 at 20:00 Zolpidem Tartrate (Ambien) 5 mg HS PRN NGT INSOMNIA; Start 01/13/17 at 20:00 Metoprolol Tartrate (Lopressor) 12.5 mg BID NGT Last administered on 02/24/17 10:54; Admin Dose 12.5 MG; Start 01/24/17 at 21:00; Status Future Hold Nystatin (Nystatin Susp) 5 ml Q6 PO Last administered on 03/02/17 05:33; Admin Dose 5 ML; Start 01/31/17 at 12:00 Lansoprazole (Prevacid) 30 mg DAILY@06 GTB Last administered on 03/02/17 05:34 ; Admin Dose 30 MG; Start 02/09/17 at 06:00 Zinc Sulfate (Zinc Sulfate) 220 mg DAILY GTB Last administered on 03/02/17 09: 51; Admin Dose 220 MG; Start 02/14/17 at 15:00 Multivitamins (Multivitamin) 30 ml DAILY GTB Last administered on 03/02/17 09: 51; Admin Dose 30 ML; Start 02/14/17 at 16:30 Docusate Sodium (Colace Liquid Cup) 100 mg BID GTB Last administered on 09:50; Admin Dose 100 MG; Start 02/14/17 at 21:00 Apixaban (Eliquis) 2.5 mg BID GTB Last administered on 02/25/17 21:37; Admin Dose 2.5 MG; Start 02/14/17 at 21:00; Status Future hold Amiodarone HCl (Cordarone) 200 mg DAILY GTB Last administered on 03/02/17 09: 53; Admin Dose 200 MG; Start 02/19/17 at 09:00 Ascorbic Acid (Vitamin C) 500 mg DAILY GTB Last administered on 03/02/17 09:51 ; Admin Dose 500 MG; Start 02/22/17 at 09:00 Insulin Glargine (Lantus) 56 unit DAILY@20 SC Last administered on 03/01/17 21 :25; Admin Dose 56 UNIT; Start 02/22/17 at 20:00 Insulin Aspart NOVOLOG *MODERATE* ALGORI... Q4 SC Last administered on 00:46; Admin Dose 2 UNIT; Start 02/23/17 at 05:00 Sodium Chloride (NS) 1,000 ml @ 40 mls/hr Q24H IV Last administered on 14:30; Admin Dose 40 MLS/HR; Start 02/23/17 at 14:30 Metoclopramide HCl (Reglan) 5 mg Q6 IV Last administered on 03/02/17 05:33; Admin Dose 5 MG; Start 02/23/17 at 18:00 CHRISTY LOPEZ M.D. Mar 02, 2017 12:56
[2017-03-02] MEDS: SOD CHLORIDE 0.9% 1,000 ML IV SCH (14:30)
--- NOTE | 2017-03-02 15:44 | PN ---
Date/Time of Note Date/Time of Note DATE: 03/02/17 TIME: 15:37 Assessment/Plan VTE Prophylaxis VTE Prophylaxis Intervention: SCD's Lines/Catheters IV Catheter Type (from Nrs): Peripheral IV Central line still needed: Yes Urinary Cath still in place: No ([facility] CATH) Assessment/Plan Chief Complaint/Hosp Course Patient is currently undergoing hemodialysis, comfortable on vent, tolerates G- tube feeding well, temperature 100.1 today in the morning, pancultured. ASSESSMENT AND PLAN: - Sacral decubitus ulcer, Dr. Ureña is following in surgical consultation for possible debridement. Continue multivitamins and zinc sulfate. - Possible recurrent sepsis, resolving. Continue antibiotics per ID. Dr Celena pritchard is following infection disease consultation. - Dysphagia. S/p G-tube by Dr. Smith. Continue G-tube feeding, monitor residual. - Anemia of blood loss. Continue to monitor H&H, transfuse as needed. - Status post cardiopulmonary arrest on 12/09/2016 and 01/08/2017. Continue ventilatory support. - Anoxic encephalopathy. Continue Keppra. - Status post tracheostomy on 01/23/2017. Continue tracheostomy care. - End-stage renal disease. Continue hemodialysis per nephrology. - Paroxysmal atrial fibrillation. Continue Eliquis. - Diabetes mellitus type 2. Continue Lantus and NovoLog with sliding scale coverage with Accu-Cheks q. 4 hours. - Diabetic foot ulcer. Continue current wound care. - Osteomyelitis of the distal phalanx of the great left toe. Completed treatment for antibiotics. Continue sequential compression device for deep venous thrombosis prophylaxis and Protonix for peptic ulcer disease prophylaxis. Further recommendations based on clinical course. Plan of care discussed with Dr. Heredia. Problems: Exam/Review of Systems Vital Signs Vitals Vital Signs Date Time Temp Pulse Resp B/P Pulse Ox O2 Delivery O2 Flow Rate FiO2 03/02/17 15:22 98.3 78 20 87/35 95 03/02/17 14:31 30 02/27/17 04:00 Mechanical Ventilator Intake and Output 03/01/17 03/01/17 03/02/17 15:00 23:00 07:00 Intake Total 700 ml 570 ml Output Total 700 ml 800 ml Balance 0 ml -230 ml Exam Constitutional: non-verbal Head: atraumatic, normocephalic ENMT: other (Nasogastric tube) Neck: other (Tracheostomy), supple Respiratory: diminished breath sounds Cardiovascular: nl pulses Gastrointestinal: non-tender, soft, GT Neurological: unresponsive Results Result Diagram: 03/02/17 0730 03/02/17 0730 Results 24 hrs Laboratory Tests Test 03/01/17 17:16 03/01/17 21:20 03/02/17 00:37 03/02/17 05:33 Bedside Glucose 149 161 145 106 Test 03/02/17 07:30 03/02/17 09:49 03/02/17 13:17 White Blood Count 12.7 H Red Blood Count 3.12 L Hemoglobin 8.9 L Hematocrit 27.9 L Mean Corpuscular Volume 89.4 Mean Corpuscular Hemoglobin 28.5 L Mean Corpuscular Hemoglobin Concent 31.9 L Red Cell Distribution Width 14.6 H Platelet Count 197 Mean Platelet Volume 9.6 Neutrophils % 82.7 H Lymphocytes % 7.5 L Monocytes % 8.1 Eosinophils % 0.4 Basophils % 0.1 Nucleated Red Blood Cells % 0.0 Neutrophils # 10.5 H Lymphocytes # 1.0 Monocytes # 1.0 H Eosinophils # 0.1 Basophils # 0.0 Nucleated Red Blood Cells # 0.0 Sodium Level 145 H Potassium Level 4.0 Chloride Level 98 Carbon Dioxide Level 31 Anion Gap 20 H Blood Urea Nitrogen 50 H Creatinine 0.79 Glucose Level 86 # Calcium Level 8.1 L Bedside Glucose 106 124 Medications Medications Current Medications Ondansetron HCl (Zofran Inj) 4 mg Q6H PRN IV NAUSEA AND/OR VOMITING Last administered on 02/23/17 12:49; Admin Dose 4 MG; Start 12/02/16 at 22:30 Miscellaneous Information 1 ea NOTE XX ; Start 12/02/16 at 23:00 Glucose (Glutose) 15 gm Q15M PRN PO DECREASED GLUCOSE; Start 12/02/16 at 23:00 Glucose (Glutose) 22.5 gm Q15M PRN PO DECREASED GLUCOSE; Start 12/02/16 at 23: 00 Dextrose (D50w Syringe) 25 ml Q15M PRN IV DECREASED GLUCOSE Last administered on 02/24/17 05:56; Admin Dose 25 ML; Start 12/02/16 at 23:00 Dextrose (D50w Syringe) 50 ml Q15M PRN IV DECREASED GLUCOSE Last administered on 01/23/17 04:58; Admin Dose 50 ML; Start 12/02/16 at 23:00 Glucagon (Glucagen) 1 mg Q15M PRN IM DECREASED GLUCOSE; Start 12/02/16 at 23:00 Glucose (Glutose) 15 gm Q15M PRN BUCCAL DECREASED GLUCOSE; Start 12/02/16 at 23 :00 Acetaminophen (Tylenol Supp) 650 mg Q6H PRN [place] ELEVATED TEMPERATURE Last administered on 01/13/17 20:32; Admin Dose 650 MG; Start 12/09/16 at 17:00 Hydralazine HCl (Apresoline) 10 mg Q6H PRN IV SBP>150mm hg Last administered on 12/19/16 08:50; Admin Dose 10 MG; Start 12/11/16 at 10:30 Morphine Sulfate (morphine) 2 mg Q2H PRN IV PAIN LEVEL 4-7; Start 12/13/16 at 10 :00 Collagenase (Santyl) 1 applic DAILY TOP Last administered on 03/02/17 09:52; Admin Dose 1 APPLIC; Start 01/04/17 at 09:00 Metoprolol Tartrate (Lopressor) 5 mg Q4 PRN IV FOR H.R>110; Start 01/12/17 at 17:30 Acetaminophen (Tylenol Liquid) 650 mg Q6H PRN NGT PAIN AND [place] ELEVATED TEMP Last administered on 03/02/17 10:36; Admin Dose 650 MG; Start 01/13/17 at 23:30 Acetaminophen/ Hydrocodone Bitart ([place] (5/325)) 1 tab Q6H PRN NGT PAIN LEVEL 4-7; Start 01/13/17 at 23:30 Levetiracetam (Keppra Liquid) 1,000 mg DAILY NGT Last administered on 09:51; Admin Dose 1,000 MG; Start 01/14/17 at 09:00 Meclizine HCl (Antivert) 25 mg TID PRN NGT dizziness; Start 01/13/17 at 20:00 Zolpidem Tartrate (Ambien) 5 mg HS PRN NGT INSOMNIA; Start 01/13/17 at 20:00 Metoprolol Tartrate (Lopressor) 12.5 mg BID NGT Last administered on 02/24/17 10:54; Admin Dose 12.5 MG; Start 01/24/17 at 21:00; Status Future Hold Nystatin (Nystatin Susp) 5 ml Q6 PO Last administered on 03/02/17 05:33; Admin Dose 5 ML; Start 01/31/17 at 12:00 Lansoprazole (Prevacid) 30 mg DAILY@06 GTB Last administered on 03/02/17 05:34 ; Admin Dose 30 MG; Start 02/09/17 at 06:00 Zinc Sulfate (Zinc Sulfate) 220 mg DAILY GTB Last administered on 03/02/17 09: 51; Admin Dose 220 MG; Start 02/14/17 at 15:00 Multivitamins (Multivitamin) 30 ml DAILY GTB Last administered on 03/02/17 09: 51; Admin Dose 30 ML; Start 02/14/17 at 16:30 Docusate Sodium (Colace Liquid Cup) 100 mg BID GTB Last administered on 09:50; Admin Dose 100 MG; Start 02/14/17 at 21:00 Apixaban (Eliquis) 2.5 mg BID GTB Last administered on 02/25/17 21:37; Admin Dose 2.5 MG; Start 02/14/17 at 21:00; Status Future hold Amiodarone HCl (Cordarone) 200 mg DAILY GTB Last administered on 03/02/17 09: 53; Admin Dose 200 MG; Start 02/19/17 at 09:00 Ascorbic Acid (Vitamin C) 500 mg DAILY GTB Last administered on 03/02/17 09:51 ; Admin Dose 500 MG; Start 02/22/17 at 09:00 Insulin Glargine (Lantus) 56 unit DAILY@20 SC Last administered on 03/01/17 21 :25; Admin Dose 56 UNIT; Start 02/22/17 at 20:00 Insulin Aspart NOVOLOG *MODERATE* [place]... Q4 SC Last administered on 00:46; Admin Dose 2 UNIT; Start 02/23/17 at 05:00 Sodium Chloride (NS) 1,000 ml @ 40 mls/hr Q24H IV Last administered on 14:30; Admin Dose 40 MLS/HR; Start 02/23/17 at 14:30 Metoclopramide HCl (Reglan) 5 mg Q6 IV Last administered on 7/19/17at 05:33; Admin Dose 5 MG; Start 02/23/17 at 18:00 KIMBERLY NOYOLA Mar 02, 2017 15:43
[2017-03-02] MEDS ORDERED: APIXABAN 5 MG TABLET PO SCH (18:00)
[2017-03-02 20:02] LABS: ADD UMIC YES; UR ASCORBIC ACID 40 mg/dL (NEGATIVE); UR BACTERIA FEW /HPF (NONE SEEN); UR BILIRUBIN (Dip) NEGATIVE (NEGATIVE); UR BLOOD (Dip) NEGATIVE (NEGATIVE); UR BUDDING YEAST FEW /HPF (NONE SEEN); UR CLARITY SLIGHTLY CLOUDY (CLEAR); UR COLOR YELLOW (YELLOW); UR GLUCOSE (Dip) NEGATIVE (NEGATIVE); UR KETONES (Dip) NEGATIVE (NEGATIVE); UR LEUKOCYTE ESTERASE (Dip) 2+ Leu/ul (NEGATIVE); UR NITRITE (Dip) NEGATIVE (NEGATIVE); UR RBC 1 /HPF (0-5); UR SPECIFIC GRAVITY (Dip) 1.014 (1.003-1.030); UR TOTAL PROTEIN (Dip) 1+ mg/dl (NEGATIVE); UR UROBILINOGEN (Dip) NEGATIVE (NEGATIVE)
[2017-03-02] MEDS: INSULIN GLARGINE [LANtus] 3 ML PEN SC SCH (20:35)
[2017-03-03] VITALS (22 sets, daily range): BP systolic 115–127; BP diastolic 53–60; PULSE 79–86; RESP 15–23
[2017-03-03] MEDS: INSULIN ASPART [NOVOLOG] 3 ML PEN SC SCH ×6 (00:52→21:00)
[2017-03-03] MEDS: NYSTATIN SUSP 5 ML CUP PO SCH ×4 (00:55→17:02)
[2017-03-03] MEDS: METOCLOPRAMIDE 10 MG INJ IV SCH ×4 (00:55→17:02)
[2017-03-03] MEDS: ALBUTEROL 18 GM INHALER INH SCH ×4 (02:30→20:52)
[2017-03-03] MEDS: LANSOPRAZOLE 30 MG CAP GTB SCH (05:45)
[2017-03-03] MEDS: SOD CHLORIDE 0.9% 1,000 ML IV SCH ×2 (06:13→13:59)
[2017-03-03 06:50] LABS: ADD SCAN DIFF NO
[2017-03-03 07:03] LABS: BASOPHILS % 0.2 % (0.0-2.0); EOSINOPHILS # 0.1 10^3/ul (0.0-0.5); EOSINOPHILS % 0.7 % (0.0-7.0); HEMOGLOBIN 9.1 g/dl (14.0-18.0); LYMPHOCYTES # 1.2 10^3/ul (0.8-2.9); LYMPHOCYTES % 10.8 % (15.0-51.0); MEAN CORPUSCULAR HEMOGLOBIN 28.2 pg (29.0-33.0); MEAN CORPUSCULAR HGB CONC 31.4 g/dl (32.0-37.0); MEAN CORPUSCULAR VOLUME 89.8 fl (82.0-101.0); MEAN PLATELET VOLUME 9.6 fl (7.4-10.4); MONOCYTE # 0.9 10^3/ul (0.3-0.9); MONOCYTES % 8.4 % (0.0-11.0); NEUTROPHIL # 8.4 10^3/ul (1.6-7.5); NEUTROPHILS % 78.4 % (39.0-77.0); PLATELET COUNT 187 10^3/UL (140-415); RED BLOOD COUNT 3.23 10^6/ul (4.70-6.10); RED CELL DISTRIBUTION WIDTH 14.4 % (11.5-14.5); WHITE BLOOD COUNT 10.7 10^3/ul (4.8-10.8)
[2017-03-03 07:22] LABS: CALCIUM 8.3 mg/dl (8.4-10.2); CREATININE 0.63 mg/dl (0.61-1.24)
[2017-03-03] MEDS: ZINC SULFATE 220 MG CAP GTB SCH (08:14)
[2017-03-03] MEDS: AMIODARONE 200 MG TAB GTB SCH (08:15)
[2017-03-03] MEDS: DOCUSATE SODIUM 10 MG/ML (10ML CUP) GTB SCH ×2 (08:15→21:05)
[2017-03-03] MEDS: MULTIVITAMINS 30 ML CUP GTB SCH (08:15)
[2017-03-03] MEDS: LEVETIRACETAM (100 MG/ML) 5ML CUP NGT SCH (08:15)
[2017-03-03] MEDS: ASCORBIC ACID 500 MG TAB GTB SCH (08:15)
[2017-03-03] MEDS: COLLAGENASE 30 GM TUBE TOP SCH (08:24)
[2017-03-03] MEDS: APIXABAN 5 MG TABLET GTB SCH ×2 (09:15→21:05)
--- NOTE | 2017-03-03 11:19 | CONS ---
Date/Time of Note Date/Time of Note DATE: 03/03/17 TIME: 10:39 Assessment/Plan Assessment/Plan Chief Complaint/Hosp Course 1. Multiple wounds with slough and debris; sacrococcygeal unstageable -debridement -specialty mattress -frequent turning and offloading -optimize nutrition -vitamin C/ short term zinc 2. Sepsis: multifactorial: multiple wounds +pneumonia + fungemia+ other -abx per sensitivity -supportive 3. Respiratory failure s/p tracheostomy: 2/2 pna + pl effusions; s/p arrests x2 4. G-tube placement: tolerating tf 5. Thrush: on nystatin 6. ESRD: on dialysis - per nephrology 7. Paroxysmal atrial fibrillation. Eliquis 8. Diabetes: on lantus and sliding scale -blood sugar optimization 9. Diabetic foot ulcer with osteomyelitis of the distal phalanx of the great left toe -podiatry consult -diabetes management 10. Encephalopathy +/- CVA: Acute to subacute right occipital lobe ischemic infarct per CT; awake, responsive -supportive Patient seen and examined in collaboration with Dr. Vincent Brown Problems: Consultation Date/Type/Reason Admit Date/Time Dec 02, 2016 at 21:01 Date of Consultation: Mar 03, 2017 Type of Consultation: surgical Reason for Consultation multiple wounds Hx of Present Illness Camilo Newton is a 66 yo man with history of insulin-dependent diabetes who was initially admitted for left toe infection. During this hospitalization he has had recurrent sepsis second to multiple issues including pneumonia, recurrent pleural effusions, thrush and funguria/fungemia. He has also had multiple arrests with intubation/extubation, resulting in a tracheostomy and PEG placed in January. Additionally, he was also noted to have multiple wounds. Surgical consult was called to evaluate and treat. Constitutional: requiring IVF, requiring O2 Eyes: no complaints ENT: no complaints Respiratory: no complaints Cardiovascular: no complaints Gastrointestinal: no complaints Genitourinary: no complaints Musculoskeletal: bone/joint pain Skin: other Neurologic: no complaints Endocrine: no complaints Lymphatic: no complaints Psychological: confusion Immunologic: no complaints Past Medical History neuropathy HTN DM Hypokalemia Past Surgical History tracheostomy g tube placement Family History Significant Family History: diabetes, other (heart disease) Social History Smoking Status: Former smoker Exam/Review of Systems Vital Signs Vitals Vital Signs Date Time Temp Pulse Resp B/P Pulse Ox O2 Delivery O2 Flow Rate FiO2 03/03/17 09:10 85 21 100 30 03/03/17 06:56 98.0 127/60 Intake and Output 03/02/17 03/02/17 03/03/17 15:00 23:00 07:00 Intake Total 880 ml 1220 ml Output Total 2620 ml 550 ml Balance -1740 ml 670 ml Exam Constitutional: alert, non-verbal, No distress Psych: other (flat affect) Head: atraumatic, normocephalic Eyes: PERRL ENMT: No mucosa pink and moist (dry) Neck: other (tracheostomy, no drainage peristoma), supple Respiratory: crackles/rales, diminished breath sounds Cardiovascular: regular rate and rhythm Gastrointestinal: non-tender, other (gtube), soft Musculoskeletal: muscle weakness Extremities: edema (BUE +2), normal pulses Neurological: other (nonverbal), No nl speech, No nl strength Skin: other (multiple wounds: sacral unstageable with necrotic tissue and slough, periwound erythema; see nurses notes and pictures) Results Result Diagram: 03/03/1762503/03/17 0626 Results 24 hrs Laboratory Tests Test 03/02/17 13:17 03/02/17 18:02 03/02/17 19:25 03/02/17 20:32 Bedside Glucose 124 130 151 Urine Color YELLOW Urine Clarity SLIGHTLY CLOUDY A Urine pH 6.0 Urine Specific [place] 1.014 Urine Ketones NEGATIVE Urine Nitrite NEGATIVE Urine Bilirubin NEGATIVE Urine Urobilinogen NEGATIVE Urine Leukocyte Esterase 2+ H Urine Microscopic RBC 1 Urine Microscopic WBC 22 H Urine Bacteria FEW A Urine Yeast (Budding) FEW A Urine Hemoglobin NEGATIVE Urine Glucose NEGATIVE Urine Total Protein 1+ H Test 03/03/17 00:47 03/03/17 05:39 03/03/17 06:09 03/03/17 06:26 Bedside Glucose 130 130 Lab Scanned Report BLOOD TRANSFUSION White Blood Count 10.7 Red Blood Count 3.23 L Hemoglobin 9.1 L Hematocrit 29.0 L Mean Corpuscular Volume 89.8 Mean Corpuscular Hemoglobin 28.2 L Mean Corpuscular Hemoglobin Concent 31.4 L Red Cell Distribution Width 14.4 Platelet Count 187 Mean Platelet Volume 9.6 Neutrophils % 78.4 H Lymphocytes % 10.8 L Monocytes % 8.4 Eosinophils % 0.7 Basophils % 0.2 Nucleated Red Blood Cells % 0.0 Neutrophils # 8.4 H Lymphocytes # 1.2 Monocytes # 0.9 Eosinophils # 0.1 Basophils # 0.0 Nucleated Red Blood Cells # 0.0 Sodium Level 145 H Potassium Level 4.0 Chloride Level 98 Carbon Dioxide Level 33 H Anion Gap 18 H Blood Urea Nitrogen 38 #H Creatinine 0.63 Glucose Level 110 Calcium Level 8.3 L Test 03/03/17 08:22 Bedside Glucose 107 Medications Medications Current Medications Ondansetron HCl (Zofran Inj) 4 mg Q6H PRN IV NAUSEA AND/OR VOMITING Last administered on 02/23/17 12:49; Admin Dose 4 MG; Start 12/02/16 at 22:30 Miscellaneous Information 1 ea NOTE XX ; Start 12/02/16 at 23:00 Glucose (Glutose) 15 gm Q15M PRN PO DECREASED GLUCOSE; Start 12/02/16 at 23:00 Glucose (Glutose) 22.5 gm Q15M PRN PO DECREASED GLUCOSE; Start 12/02/16 at 23: 00 Dextrose (D50w Syringe) 25 ml Q15M PRN IV DECREASED GLUCOSE Last administered on 02/24/17 05:56; Admin Dose 25 ML; Start 12/02/16 at 23:00 Dextrose (D50w Syringe) 50 ml Q15M PRN IV DECREASED GLUCOSE Last administered on 01/23/17 04:58; Admin Dose 50 ML; Start 12/02/16 at 23:00 Glucagon (Glucagen) 1 mg Q15M PRN IM DECREASED GLUCOSE; Start 12/02/16 at 23:00 Glucose (Glutose) 15 gm Q15M PRN BUCCAL DECREASED GLUCOSE; Start 12/02/16 at 23 :00 Acetaminophen (Tylenol Supp) 650 mg Q6H PRN [place] ELEVATED TEMPERATURE Last administered on 01/13/17 20:32; Admin Dose 650 MG; Start 12/09/16 at 17:00 Hydralazine HCl (Apresoline) 10 mg Q6H PRN IV SBP>150mm hg Last administered on 12/19/16 08:50; Admin Dose 10 MG; Start 12/11/16 at 10:30 Morphine Sulfate (morphine) 2 mg Q2H PRN IV PAIN LEVEL 4-7; Start 12/13/16 at 10 :00 Collagenase (Santyl) 1 applic DAILY TOP Last administered on 03/03/17 08:24; Admin Dose 1 APPLIC; Start 01/04/17 at 09:00 Metoprolol Tartrate (Lopressor) 5 mg Q4 PRN IV FOR H.R>110; Start 01/12/17 at 17:30 Acetaminophen (Tylenol Liquid) 650 mg Q6H PRN NGT PAIN AND [place] ELEVATED TEMP Last administered on 03/02/17 10:36; Admin Dose 650 MG; Start 01/13/17 at 23:30 Acetaminophen/ Hydrocodone Bitart ([place] (5/325)) 1 tab Q6H PRN NGT PAIN LEVEL 4-7; Start 01/13/17 at 23:30 Levetiracetam (Keppra Liquid) 1,000 mg DAILY NGT Last administered on 08:15; Admin Dose 1,000 MG; Start 01/14/17 at 09:00 Meclizine HCl (Antivert) 25 mg TID PRN NGT dizziness; Start 01/13/17 at 20:00 Zolpidem Tartrate (Ambien) 5 mg HS PRN NGT INSOMNIA; Start 01/13/17 at 20:00 Metoprolol Tartrate (Lopressor) 12.5 mg BID NGT Last administered on 02/24/17 10:54; Admin Dose 12.5 MG; Start 01/24/17 at 21:00; Status Future Hold Nystatin (Nystatin Susp) 5 ml Q6 PO Last administered on 03/03/17 05:45; Admin Dose 5 ML; Start 01/31/17 at 12:00 Lansoprazole (Prevacid) 30 mg DAILY@06 GTB Last administered on 03/03/17 05:45 ; Admin Dose 30 MG; Start 02/09/17 at 06:00 Zinc Sulfate (Zinc Sulfate) 220 mg DAILY GTB Last administered on 03/03/17 08: 14; Admin Dose 220 MG; Start 02/14/17 at 15:00 Multivitamins (Multivitamin) 30 ml DAILY GTB Last administered on 03/03/17 08: 15; Admin Dose 30 ML; Start 02/14/17 at 16:30 Docusate Sodium (Colace Liquid Cup) 100 mg BID GTB Last administered on 08:15; Admin Dose 100 MG; Start 02/14/17 at 21:00 Amiodarone HCl (Cordarone) 200 mg DAILY GTB Last administered on 03/03/17 08: 15; Admin Dose 200 MG; Start 02/19/17 at 09:00 Ascorbic Acid (Vitamin C) 500 mg DAILY GTB Last administered on 03/03/17 08:15 ; Admin Dose 500 MG; Start 02/22/17 at 09:00 Insulin Glargine (Lantus) 56 unit DAILY@20 SC Last administered on 03/02/17 20 :35; Admin Dose 56 UNIT; Start 02/22/17 at 20:00 Insulin Aspart NOVOLOG *MODERATE* ALGORI... Q4 SC Last administered on 20:34; Admin Dose 2 UNIT; Start 02/23/17 at 05:00 Sodium Chloride (NS) 1,000 ml @ 40 mls/hr Q24H IV Last administered on 06:13; Admin Dose 40 MLS/HR; Start 02/23/17 at 14:30 Metoclopramide HCl (Reglan) 5 mg Q6 IV Last administered on 03/03/17 05:45; Admin Dose 5 MG; Start 02/23/17 at 18:00 Apixaban (Eliquis) 2.5 mg BID GTB ; Start 03/03/17 at 21:00 PERLA MUJICA NP Mar 03, 2017 10:49
--- NOTE | 2017-03-03 12:37 | CONS ---
Date/Time of Note Date/Time of Note DATE: 03/03/17 TIME: 12:34 Assessment/Plan Assessment/Plan Chief Complaint/Hosp Course IMPRESSION: 1. Atrial fibrillation-Having episodes of PAF with reasonable rate control. Currently remains in SR. Had pause approximately 4 seconds this am ? if was during suctioning. No recurrent pause since holding of BB 2. Hypotension-overall improved and stable 3. Abnormal electrocardiogram with inferolateral T-wave inversions. 4. Respiratory failure-s/p trach placement 5. Nonhealing toe ulceration-vascular following 6. Peripheral arterial disease by arterial ultrasound of the lower extremities this admission. 7. Diabetes mellitus. 8. Fevers. 9. Positive troponin-downtrended 10.Bradycardia-improved/stable 11.-severe by echo 12.Cardiomyopathy-EF 40-45% by echo/36% by stress with no ischemia but positive scar. EF <30% by echo post arrest 13.Encephalopathy-anoxic 14. s/p cardiopulmonary arrest 01/08 15. Pre-op-for debridemnt of decubitis ulcer- Patient at this time has no definite cardiac contraindication to proceeding to OR for debridement but is at high risk for CV complications due to severe and cardiomyopathy 16. Hypernatremia Recc: -Tele -serial ecg -HD for volume removal as tolerated ongoing today -Continu Eliquis -Continue PO amio in attempt to maintain SR, daily and follow for any recurrent pauses -Will hold on afterload reduction given severe and thus fixed afterload at valve orifice -Continue to hold BB and follow for recurrent pause Problems: Consultation Date/Type/Reason Admit Date/Time Dec 02, 2016 at 21:01 Initial Consult Date 12/03/16 Type of Consultation: cardiology Reason for Consultation PAF//cardiomyopathy Referring Provider: VIET PARKER MD Exam/Review of Systems Vital Signs Vitals Vital Signs Date Time Temp Pulse Resp B/P Pulse Ox O2 Delivery O2 Flow Rate FiO2 03/03/17 11:36 98.2 83 20 120/56 99 03/03/17 11:05 30 Intake and Output 03/02/17 03/02/17 03/03/17 15:00 23:00 07:00 Intake Total 880 ml 1220 ml Output Total 2620 ml 550 ml Balance -1740 ml 670 ml Exam Review of Systems: CONSTITUTIONAL: No fevers, chills. PULMONARY: No sob CARDIOVASCULAR: No obvious chest pain/palpitations GASTROINTESTINAL: No nausea/vomiting. GENITOURINARY: No hematuria/dysuria. MUSCULOSKELETAL: No obvious myagias/arthalgias. PSYCHIATRIC: The patient denies depression. NEUROLOGIC: encephalopathic Constitutional: other (encephalopathic) Head: normocephalic ENMT: mucosa pink and moist Neck: jvd (9 cm water), supple Respiratory: diminished breath sounds (at bases/B) Cardiovascular: regular rate and rhythm Gastrointestinal: non-tender, soft Musculoskeletal: muscle tone (normal) Extremities: edema (none) Neurological: other (encephalopathic) Results Result Diagram: 03/03/17 0626 03/03/17 0626 Results 24 hrs Laboratory Tests Test 03/02/17 13:17 03/02/17 18:02 03/02/17 19:25 03/02/17 20:32 Bedside Glucose 124 130 151 Urine Color YELLOW Urine Clarity SLIGHTLY CLOUDY A Urine pH 6.0 Urine Specific [place] 1.014 Urine Ketones NEGATIVE Urine Nitrite NEGATIVE Urine Bilirubin NEGATIVE Urine Urobilinogen NEGATIVE Urine Leukocyte Esterase 2+ H Urine Microscopic RBC 1 Urine Microscopic WBC 22 H Urine Bacteria FEW A Urine Yeast (Budding) FEW A Urine Hemoglobin NEGATIVE Urine Glucose NEGATIVE Urine Total Protein 1+ H Test 03/03/17 00:47 03/03/17 05:39 03/03/17 06:09 03/03/17 06:26 Bedside Glucose 130 130 Lab Scanned Report BLOOD TRANSFUSION White Blood Count 10.7 Red Blood Count 3.23 L Hemoglobin 9.1 L Hematocrit 29.0 L Mean Corpuscular Volume 89.8 Mean Corpuscular Hemoglobin 28.2 L Mean Corpuscular Hemoglobin Concent 31.4 L Red Cell Distribution Width 14.4 Platelet Count 187 Mean Platelet Volume 9.6 Neutrophils % 78.4 H Lymphocytes % 10.8 L Monocytes % 8.4 Eosinophils % 0.7 Basophils % 0.2 Nucleated Red Blood Cells % 0.0 Neutrophils # 8.4 H Lymphocytes # 1.2 Monocytes # 0.9 Eosinophils # 0.1 Basophils # 0.0 Nucleated Red Blood Cells # 0.0 Sodium Level 145 H Potassium Level 4.0 Chloride Level 98 Carbon Dioxide Level 33 H Anion Gap 18 H Blood Urea Nitrogen 38 #H Creatinine 0.63 Glucose Level 110 Calcium Level 8.3 L Test 03/03/17 08:22 03/03/17 11:48 Bedside Glucose 107 128 Medications Medications Current Medications Ondansetron HCl (Zofran Inj) 4 mg Q6H PRN IV NAUSEA AND/OR VOMITING Last administered on 02/23/17 12:49; Admin Dose 4 MG; Start 12/02/16 at 22:30 Miscellaneous Information 1 ea NOTE XX ; Start 12/02/16 at 23:00 Glucose (Glutose) 15 gm Q15M PRN PO DECREASED GLUCOSE; Start 12/02/16 at 23:00 Glucose (Glutose) 22.5 gm Q15M PRN PO DECREASED GLUCOSE; Start 12/02/16 at 23: 00 Dextrose (D50w Syringe) 25 ml Q15M PRN IV DECREASED GLUCOSE Last administered on 02/24/17 05:56; Admin Dose 25 ML; Start 12/02/16 at 23:00 Dextrose (D50w Syringe) 50 ml Q15M PRN IV DECREASED GLUCOSE Last administered on 01/23/17 04:58; Admin Dose 50 ML; Start 12/02/16 at 23:00 Glucagon (Glucagen) 1 mg Q15M PRN IM DECREASED GLUCOSE; Start 12/02/16 at 23:00 Glucose (Glutose) 15 gm Q15M PRN BUCCAL DECREASED GLUCOSE; Start 12/02/16 at 23 :00 Acetaminophen (Tylenol Supp) 650 mg Q6H PRN [place] ELEVATED TEMPERATURE Last administered on 01/13/17 20:32; Admin Dose 650 MG; Start 12/09/16 at 17:00 Hydralazine HCl (Apresoline) 10 mg Q6H PRN IV SBP>150mm hg Last administered on 12/19/16 08:50; Admin Dose 10 MG; Start 12/11/16 at 10:30 Morphine Sulfate (morphine) 2 mg Q2H PRN IV PAIN LEVEL 4-7; Start 12/13/16 at 10 :00 Collagenase (Santyl) 1 applic DAILY TOP Last administered on 03/03/17 08:24; Admin Dose 1 APPLIC; Start 01/04/17 at 09:00 Metoprolol Tartrate (Lopressor) 5 mg Q4 PRN IV FOR H.R>110; Start 01/12/17 at 17:30 Acetaminophen (Tylenol Liquid) 650 mg Q6H PRN NGT PAIN AND OR ELEVATED TEMP Last administered on 03/02/17 10:36; Admin Dose 650 MG; Start 01/13/17 at 23:30 Acetaminophen/ Hydrocodone Bitart ([place] (5/325)) 1 tab Q6H PRN NGT PAIN LEVEL 4-7; Start 01/13/17 at 23:30 Levetiracetam (Keppra Liquid) 1,000 mg DAILY NGT Last administered on 08:15; Admin Dose 1,000 MG; Start 01/14/17 at 09:00 Meclizine HCl (Antivert) 25 mg TID PRN NGT dizziness; Start 01/13/17 at 20:00 Zolpidem Tartrate (Ambien) 5 mg HS PRN NGT INSOMNIA; Start 01/13/17 at 20:00 Metoprolol Tartrate (Lopressor) 12.5 mg BID NGT Last administered on 02/24/17 10:54; Admin Dose 12.5 MG; Start 01/24/17 at 21:00; Status Future Hold Nystatin (Nystatin Susp) 5 ml Q6 PO Last administered on 03/03/17 11:53; Admin Dose 5 ML; Start 01/31/17 at 12:00 Lansoprazole (Prevacid) 30 mg DAILY@06 GTB Last administered on 03/03/17 05:45 ; Admin Dose 30 MG; Start 02/09/17 at 06:00 Zinc Sulfate (Zinc Sulfate) 220 mg DAILY GTB Last administered on 03/03/17 08: 14; Admin Dose 220 MG; Start 02/14/17 at 15:00 Multivitamins (Multivitamin) 30 ml DAILY GTB Last administered on 03/03/17 08: 15; Admin Dose 30 ML; Start 02/14/17 at 16:30 Docusate Sodium (Colace Liquid Cup) 100 mg BID GTB Last administered on 08:15; Admin Dose 100 MG; Start 02/14/17 at 21:00 Amiodarone HCl (Cordarone) 200 mg DAILY GTB Last administered on 03/03/17 08: 15; Admin Dose 200 MG; Start 02/19/17 at 09:00 Ascorbic Acid (Vitamin C) 500 mg DAILY GTB Last administered on 03/03/17 08:15 ; Admin Dose 500 MG; Start 02/22/17 at 09:00 Insulin Glargine (Lantus) 56 unit DAILY@20 SC Last administered on 03/02/17 20 :35; Admin Dose 56 UNIT; Start 02/22/17 at 20:00 Insulin Aspart NOVOLOG *MODERATE* ALGORI... Q4 SC Last administered on 20:34; Admin Dose 2 UNIT; Start 02/23/17 at 05:00 Sodium Chloride (NS) 1,000 ml @ 40 mls/hr Q24H IV Last administered on 06:13; Admin Dose 40 MLS/HR; Start 02/23/17 at 14:30 Metoclopramide HCl (Reglan) 5 mg Q6 IV Last administered on 03/03/17 11:53; Admin Dose 5 MG; Start 02/23/17 at 18:00 Apixaban (Eliquis) 2.5 mg BID GTB ; Start 03/03/17 at 21:00 VICENTE LESLIE Mar 03, 2017 12:37
--- NOTE | 2017-03-03 15:42 | PN ---
Date/Time of Note Date/Time of Note DATE: 03/03/17 TIME: 15:35 Assessment/Plan VTE Prophylaxis VTE Prophylaxis Intervention: other Lines/Catheters IV [facility] Peripheral IV Assessment/Plan Assessment/Plan - Sacral decubitus ulcer, Dr. Ureña is following in surgical consultation for possible debridement. Continue multivitamins and zinc sulfate. - possible plan for debridement tomorrow or Sat. If no surgery then patient will be transferred to SNF. 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 - Hypernatremia- per nephrology - Possible recurrent sepsis, resolving. Continue antibiotics per ID. Dr Celena pritchard is following infection disease consultation. - Dysphagia. S/p G-tube by Dr. Smith. Continue G-tube feeding, monitor residual. - Anemia of blood loss. Continue to monitor H&H, transfuse as needed. - Status post cardiopulmonary arrest on 12/09/2016 and 01/08/2017. Continue ventilatory support. - Anoxic encephalopathy. Continue Keppra. - Status post tracheostomy on 01/23/2017. Continue tracheostomy care. - End-stage renal disease. Continue hemodialysis per nephrology. - Paroxysmal atrial fibrillation. Continue Eliquis. - Diabetes mellitus type 2. Continue Lantus and NovoLog with sliding scale coverage with Accu-Cheks q. 4 hours. - Diabetic foot ulcer. Continue current wound care. - Osteomyelitis of the distal phalanx of the great left toe. Completed treatment for antibiotics. Continue sequential compression device for deep venous thrombosis prophylaxis and Protonix for peptic ulcer disease prophylaxis. Further recommendations based on clinical course. Plan of care discussed with Dr. Heredia. Subjective 24 Hr Interval Summary Free Text/Dictation remains unresponsive, on o2/ gt feeding. possible plan for debridement tomorrow or Sat. If no surgery then patient will be transferred to SNF. 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 dw staff Subjective hx not possible: pt non-verbal Constitutional: requiring IVF, requiring O2 Exam/Review of Systems Vital Signs Vitals Vital Signs Date Time Temp Pulse Resp B/P Pulse Ox O2 Delivery O2 Flow Rate FiO2 03/03/17 13:10 82 18 98 30 03/03/17 11:36 98.2 120/56 Intake and Output 03/02/17 03/02/17 03/03/17 15:00 23:00 07:00 Intake Total 880 ml 1220 ml Output Total 2620 ml 550 ml Balance -1740 ml 670 ml Exam Constitutional: non-verbal Respiratory: diminished breath sounds Cardiovascular: nl pulses, regular rate and rhythm Gastrointestinal: non-tender, soft Extremities: normal pulses Neurological: unresponsive Results Result Diagram: 03/03/17 0626 03/03/17 0626 Results 24 hrs Laboratory Tests Test 03/02/17 18:02 03/02/17 19:25 03/02/17 20:32 03/03/17 00:47 Bedside Glucose 130 151 130 Urine Color YELLOW Urine Clarity SLIGHTLY CLOUDY A Urine pH 6.0 Urine Specific [place] 1.014 Urine Ketones NEGATIVE Urine Nitrite NEGATIVE Urine Bilirubin NEGATIVE Urine Urobilinogen NEGATIVE Urine Leukocyte Esterase 2+ H Urine Microscopic RBC 1 Urine Microscopic WBC 22 H Urine Bacteria FEW A Urine Yeast (Budding) FEW A Urine Hemoglobin NEGATIVE Urine Glucose NEGATIVE Urine Total Protein 1+ H Test 03/03/17 05:39 03/03/17 06:09 03/03/17 06:26 03/03/17 08:22 Bedside Glucose 130 107 Lab Scanned Report BLOOD TRANSFUSION White Blood Count 10.7 Red Blood Count 3.23 L Hemoglobin 9.1 L Hematocrit 29.0 L Mean Corpuscular Volume 89.8 Mean Corpuscular Hemoglobin 28.2 L Mean Corpuscular Hemoglobin Concent 31.4 L Red Cell Distribution Width 14.4 Platelet Count 187 Mean Platelet Volume 9.6 Neutrophils % 78.4 H Lymphocytes % 10.8 L Monocytes % 8.4 Eosinophils % 0.7 Basophils % 0.2 Nucleated Red Blood Cells % 0.0 Neutrophils # 8.4 H Lymphocytes # 1.2 Monocytes # 0.9 Eosinophils # 0.1 Basophils # 0.0 Nucleated Red Blood Cells # 0.0 Sodium Level 145 H Potassium Level 4.0 Chloride Level 98 Carbon Dioxide Level 33 H Anion Gap 18 H Blood Urea Nitrogen 38 #H Creatinine 0.63 Glucose Level 110 Calcium Level 8.3 L Test 03/03/17 11:48 Bedside Glucose 128 Medications Medications Current Medications Ondansetron HCl (Zofran Inj) 4 mg Q6H PRN IV NAUSEA AND/OR VOMITING Last administered on 02/23/17t 12:49; Admin Dose 4 MG; Start 12/02/16 at 22:30 Miscellaneous Information 1 ea NOTE XX ; Start 12/02/16 at 23:00 Glucose (Glutose) 15 gm Q15M PRN PO DECREASED GLUCOSE; Start 12/02/16 at 23:00 Glucose (Glutose) 22.5 gm Q15M PRN PO DECREASED GLUCOSE; Start 12/02/16 at 23: 00 Dextrose (D50w Syringe) 25 ml Q15M PRN IV DECREASED GLUCOSE Last administered on 02/24/17 05:56; Admin Dose 25 ML; Start 12/02/16 at 23:00 Dextrose (D50w Syringe) 50 ml Q15M PRN IV DECREASED GLUCOSE Last administered on 01/23/17 04:58; Admin Dose 50 ML; Start 12/02/16 at 23:00 Glucagon (Glucagen) 1 mg Q15M PRN IM DECREASED GLUCOSE; Start 12/02/16 at 23:00 Glucose (Glutose) 15 gm Q15M PRN BUCCAL DECREASED GLUCOSE; Start 12/02/16 at 23 :00 Acetaminophen (Tylenol Supp) 650 mg Q6H PRN [place] ELEVATED TEMPERATURE Last administered on 01/13/17 20:32; Admin Dose 650 MG; Start 12/09/16 at 17:00 Hydralazine HCl (Apresoline) 10 mg Q6H PRN IV SBP>150mm hg Last administered on 12/19/16 08:50; Admin Dose 10 MG; Start 12/11/16 at 10:30 Morphine Sulfate (morphine) 2 mg Q2H PRN IV PAIN LEVEL 4-7; Start 12/13/16 at 10 :00 Collagenase (Santyl) 1 applic DAILY TOP Last administered on 03/03/17 08:24; Admin Dose 1 APPLIC; Start 01/04/17 at 09:00 Metoprolol Tartrate (Lopressor) 5 mg Q4 PRN IV FOR H.R>110; Start 01/12/17 at 17:30 Acetaminophen (Tylenol Liquid) 650 mg Q6H PRN NGT PAIN AND OR ELEVATED TEMP Last administered on 03/02/17 10:36; Admin Dose 650 MG; Start 01/13/17 at 23:30 Acetaminophen/ Hydrocodone Bitart ([place] (5/325)) 1 tab Q6H PRN NGT PAIN LEVEL 4-7; Start 01/13/17 at 23:30 Levetiracetam (Keppra Liquid) 1,000 mg DAILY NGT Last administered on 08:15; Admin Dose 1,000 MG; Start 01/14/17 at 09:00 Meclizine HCl (Antivert) 25 mg TID PRN NGT dizziness; Start 01/13/17 at 20:00 Zolpidem Tartrate (Ambien) 5 mg HS PRN NGT INSOMNIA; Start 01/13/17 at 20:00 Metoprolol Tartrate (Lopressor) 12.5 mg BID NGT Last administered on 02/24/17 10:54; Admin Dose 12.5 MG; Start 01/24/17 at 21:00; Status Future Hold Nystatin (Nystatin Susp) 5 ml Q6 PO Last administered on 03/03/17 11:53; Admin Dose 5 ML; Start 01/31/17 at 12:00 Lansoprazole (Prevacid) 30 mg DAILY@06 GTB Last administered on 03/03/17 05:45 ; Admin Dose 30 MG; Start 02/09/17 at 06:00 Zinc Sulfate (Zinc Sulfate) 220 mg DAILY GTB Last administered on 03/03/17 08: 14; Admin Dose 220 MG; Start 02/14/17 at 15:00 Multivitamins (Multivitamin) 30 ml DAILY GTB Last administered on 03/03/17 08: 15; Admin Dose 30 ML; Start 02/14/17 at 16:30 Docusate Sodium (Colace Liquid Cup) 100 mg BID GTB Last administered on 08:15; Admin Dose 100 MG; Start 02/14/17 at 21:00 Amiodarone HCl (Cordarone) 200 mg DAILY GTB Last administered on 03/03/17 08: 15; Admin Dose 200 MG; Start 02/19/17 at 09:00 Ascorbic Acid (Vitamin C) 500 mg DAILY GTB Last administered on 03/03/17 08:15 ; Admin Dose 500 MG; Start 02/22/17 at 09:00 Insulin Glargine (Lantus) 56 unit DAILY@20 SC Last administered on 03/02/17 20 :35; Admin Dose 56 UNIT; Start 02/22/17 at 20:00 Insulin Aspart NOVOLOG *MODERATE* ALGORI... Q4 SC Last administered on 20:34; Admin Dose 2 UNIT; Start 02/23/17 at 05:00 Sodium Chloride (NS) 1,000 ml @ 40 mls/hr Q24H IV Last administered on 06:13; Admin Dose 40 MLS/HR; Start 02/23/17 at 14:30 Metoclopramide HCl (Reglan) 5 mg Q6 IV Last administered on 03/03/17 11:53; Admin Dose 5 MG; Start 02/23/17 at 18:00 Apixaban (Eliquis) 2.5 mg BID GTB ; Start 03/03/17 at 21:00 YULIANA SIMMONS Mar 03, 2017 15:42
--- NOTE | 2017-03-03 18:19 | CONS ---
YUMIKO ALATORRE [employer] SUPERINTENDENT 03/03/17 1818: Date/Time of Note Date/Time of Note DATE: 03/03/17 TIME: 18:18 Assessment/Plan Assessment/Plan Chief Complaint/Hosp Course - leukocytosis and low grade temp - improving - s/p recurrent sepsis due to pneumonia - treated with cefepime, tobramycin, and caspofungin - s/p recurrent pneumonia due to pseudomonas - s/p sepsis due to possible tracheobronchitis/pneumonia - funguria - thrush, refractory to nystatin - recurrent cardiopulmonary arrest on 12/09/2016 and on 01/08/2017 - hypoxic respiratory failure, intubated for the 2nd time on 12/12/2016; extubated 12/18/2016; re-intubated for the 3rd time 01/08/2017, s/p tracheostomy 06/2017 - bleeding from trach site - resolved - acute on chronic anemia due to acute blood loss, requiring blood transfusion - 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 Blood cultures from HD catheter on 12/13/2016 are negative to date. 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 MRI on 12/06/2016 and bone scan on showed early OM of the distal phalanx of the left great toe and left fourth proximal phalanx. superficial swab grew inna only. At present, no e/o persistent infection - recurrent pleural effusion - s/p right pleural effusion s/p thoracentesis with .9L removed on 12/16/2016; ( Note: there is no pleural fluid cx since orders were placed after Right thoracentesis, and Left thoracentesis was not performed on 12/17/16 d/t insufficient fluid) - ARANZA on CKD that progressed to ESRD and started on HD from 12/09/2016 - oliguria - improved - A fib -> PAF - small nonreversible perfusion abnormality in the inferoapical and inferior carver; EF 36% per Lexiscan 12/24/2016 - severe , EF 40-45% per TTE 12/17/16 - DM - Hgb A1c 8.7% - HTN associated with DM - acute encephalopathy with anoxic brain injury - unstageable decubitus ulcer of coccyx, no evidence of infection - dysphagia s/p G-tube placement 02/08/2017 NOTE: Pt completed 6 weeks (12/03/2016-01/15/2017) of antibiotics to treat early OM of the distal phalanx of the left great toe and left fourth proximal phalanx ; s/p pip/tazo 12/03/16-01/08/17; linezolid 01/08/17-01/20/17; caspofungin 01/12/17-01/21/17 and 02/04/17-02/17/17; tobramycin 02/04/2017- 02/15/17 for pseudomonas; cefepime 02/02/17-02/18/17 recommendations: - recommend repeat UA and urine culture via straight cath (ordered) - pending results: final blood culture (peripheral, HD catheter x2), resp culture, urine culture - monitor closely off antibiotics - continue nystatin for thrush - wound care of the coccyx and upper back Management d/w Dr. Moses Problems: Consultation Date/Type/Reason Admit Date/Time Dec 02, 2016 at 21:01 Initial Consult Date 12/03/16 Type of Consultation: Infectious Disease Referring Provider: VIET PARKER MD 24 HR Interval Summary Free Text/Dictation Low grade fever and leukocytosis resolved; GNR growing in urine culture Dr. Brown was consulted per d/w nursing staff. Exam/Review of Systems Vital Signs Vitals Vital Signs Date Time Temp Pulse Resp B/P Pulse Ox O2 Delivery O2 Flow Rate FiO2 03/03/17 17:10 85 17 98 30 03/03/17 16:00 98.0 119/53 Intake and Output 03/02/17 03/02/17 03/03/17 15:00 23:00 07:00 Intake Total 880 ml 1220 ml Output Total 2620 ml 550 ml Balance -1740 ml 670 ml Exam onstitutional: frail, chronically debilitated, non-communicative, well developed Head: atraumatic, normocephalic Eyes: nl conjunctiva, nl lids Neck: other (tracheostomy intact - no bleeding noted) Respiratory: essentially clear anteriorly Cardiovascular: nl pulses, regular rate and rhythm Gastrointestinal: non-tender, soft, G-tube with tube feeds intact Genitourinary - Male: nl penis, nl scrotum, other (Condom catheter in place) Musculoskeletal: nl extremities to inspection Extremities: No edema Neurological: lethargic/asleep Skin: nl turgor, other (wounds: see nurse note and photos in chart for details ; decub on the coccyx) Results Result Diagram: 03/03/17 0626 03/03/17 0626 Results 24 hrs Laboratory Tests Test 03/02/17 19:25 03/02/17 20:32 03/03/17 00:47 03/03/17 05:39 Urine Color YELLOW Urine Clarity SLIGHTLY CLOUDY A Urine pH 6.0 Urine Specific [place] 1.014 Urine Ketones NEGATIVE Urine Nitrite NEGATIVE Urine Bilirubin NEGATIVE Urine Urobilinogen NEGATIVE Urine Leukocyte Esterase 2+ H Urine Microscopic RBC 1 Urine Microscopic WBC 22 H Urine Bacteria FEW A Urine Yeast (Budding) FEW A Urine Hemoglobin NEGATIVE Urine Glucose NEGATIVE Urine Total Protein 1+ H Bedside Glucose 151 130 130 Test 03/03/17 06:09 03/03/17 06:26 03/03/17 08:22 03/03/17 11:48 Lab Scanned Report BLOOD TRANSFUSION White Blood Count 10.7 Red Blood Count 3.23 L Hemoglobin 9.1 L Hematocrit 29.0 L Mean Corpuscular Volume 89.8 Mean Corpuscular Hemoglobin 28.2 L Mean Corpuscular Hemoglobin Concent 31.4 L Red Cell Distribution Width 14.4 Platelet Count 187 Mean Platelet Volume 9.6 Neutrophils % 78.4 H Lymphocytes % 10.8 L Monocytes % 8.4 Eosinophils % 0.7 Basophils % 0.2 Nucleated Red Blood Cells % 0.0 Neutrophils # 8.4 H Lymphocytes # 1.2 Monocytes # 0.9 Eosinophils # 0.1 Basophils # 0.0 Nucleated Red Blood Cells # 0.0 Sodium Level 145 H Potassium Level 4.0 Chloride Level 98 Carbon Dioxide Level 33 H Anion Gap 18 H Blood Urea Nitrogen 38 #H Creatinine 0.63 Glucose Level 110 Calcium Level 8.3 L Bedside Glucose 107 128 Test 03/03/17 17:00 Bedside Glucose 116 Medications Medications Current Medications Ondansetron HCl (Zofran Inj) 4 mg Q6H PRN IV NAUSEA AND/OR VOMITING Last administered on 02/23/17t 12:49; Admin Dose 4 MG; Start 12/02/16 at 22:30 Miscellaneous Information 1 ea NOTE XX ; Start 12/02/16 at 23:00 Glucose (Glutose) 15 gm Q15M PRN PO DECREASED GLUCOSE; Start 12/02/16 at 23:00 Glucose (Glutose) 22.5 gm Q15M PRN PO DECREASED GLUCOSE; Start 12/02/16 at 23: 00 Dextrose (D50w Syringe) 25 ml Q15M PRN IV DECREASED GLUCOSE Last administered on 02/24/17 05:56; Admin Dose 25 ML; Start 12/02/16 at 23:00 Dextrose (D50w Syringe) 50 ml Q15M PRN IV DECREASED GLUCOSE Last administered on 01/23/17 04:58; Admin Dose 50 ML; Start 12/02/16 at 23:00 Glucagon (Glucagen) 1 mg Q15M PRN IM DECREASED GLUCOSE; Start 12/02/16 at 23:00 Glucose (Glutose) 15 gm Q15M PRN BUCCAL DECREASED GLUCOSE; Start 12/02/16 at 23 :00 Acetaminophen (Tylenol Supp) 650 mg Q6H PRN [place] ELEVATED TEMPERATURE Last administered on 01/13/17 20:32; Admin Dose 650 MG; Start 12/09/16 at 17:00 Hydralazine HCl (Apresoline) 10 mg Q6H PRN IV SBP>150mm hg Last administered on 12/19/16 08:50; Admin Dose 10 MG; Start 12/11/16 at 10:30 Morphine Sulfate (morphine) 2 mg Q2H PRN IV PAIN LEVEL 4-7; Start 12/13/16 at 10 :00 Collagenase (Santyl) 1 applic DAILY TOP Last administered on 03/03/17 08:24; Admin Dose 1 APPLIC; Start 01/04/17 at 09:00 Metoprolol Tartrate (Lopressor) 5 mg Q4 PRN IV FOR H.R>110; Start 01/12/17 at 17:30 Acetaminophen (Tylenol Liquid) 650 mg Q6H PRN NGT PAIN AND [place] ELEVATED TEMP Last administered on 03/02/17 10:36; Admin Dose 650 MG; Start 01/13/17 at 23:30 Acetaminophen/ Hydrocodone Bitart ([place] (5/325)) 1 tab Q6H PRN NGT PAIN LEVEL 4-7; Start 01/13/17 at 23:30 Levetiracetam (Keppra Liquid) 1,000 mg DAILY NGT Last administered on 08:15; Admin Dose 1,000 MG; Start 01/14/17 at 09:00 Meclizine HCl (Antivert) 25 mg TID PRN NGT dizziness; Start 01/13/17 at 20:00 Zolpidem Tartrate (Ambien) 5 mg HS PRN NGT INSOMNIA; Start 01/13/17 at 20:00 Metoprolol Tartrate (Lopressor) 12.5 mg BID NGT Last administered on 02/24/17 10:54; Admin Dose 12.5 MG; Start 01/24/17 at 21:00; Status Future Hold Nystatin (Nystatin Susp) 5 ml Q6 PO Last administered on 03/03/17 17:02; Admin Dose 5 ML; Start 01/31/17 at 12:00 Lansoprazole (Prevacid) 30 mg DAILY@06 GTB Last administered on 03/03/17 05:45 ; Admin Dose 30 MG; Start 02/09/17 at 06:00 Zinc Sulfate (Zinc Sulfate) 220 mg DAILY GTB Last administered on 03/03/17 08: 14; Admin Dose 220 MG; Start 02/14/17 at 15:00 Multivitamins (Multivitamin) 30 ml DAILY GTB Last administered on 03/03/17 08: 15; Admin Dose 30 ML; Start 02/14/17 at 16:30 Docusate Sodium (Colace Liquid Cup) 100 mg BID GTB Last administered on 08:15; Admin Dose 100 MG; Start 02/14/17 at 21:00 Amiodarone HCl (Cordarone) 200 mg DAILY GTB Last administered on 03/03/17 08: 15; Admin Dose 200 MG; Start 02/19/17 at 09:00 Ascorbic Acid (Vitamin C) 500 mg DAILY GTB Last administered on 03/03/17 08:15 ; Admin Dose 500 MG; Start 02/22/17 at 09:00 Insulin Glargine (Lantus) 56 unit DAILY@20 SC Last administered on 03/02/17 20 :35; Admin Dose 56 UNIT; Start 02/22/17 at 20:00 Insulin Aspart NOVOLOG *MODERATE* ALGORI... Q4 SC Last administered on 20:34; Admin Dose 2 UNIT; Start 02/23/17 at 05:00 Sodium Chloride (NS) 1,000 ml @ 40 mls/hr Q24H IV Last administered on 06:13; Admin Dose 40 MLS/HR; Start 02/23/17 at 14:30 Metoclopramide HCl (Reglan) 5 mg Q6 IV Last administered on 03/03/17 17:02; Admin Dose 5 MG; Start 02/23/17 at 18:00 Apixaban (Eliquis) 2.5 mg BID GTB ; Start 03/03/17 at 21:00 CHRISTY MOSES M.D. 03/04/17 0919: Assessment/Plan Assessment/Plan Additional Assessment/Plan Aurelia attestation: I discussed the management with ELODIA Alatorre and agree with above Exam/Review of Systems Results Result Diagram: 03/03/17 0626 03/03/17 0626 YUMIKO ALATORRE NP Mar 03, 2017 18:18 CHRISTY MSOES M.D. Mar 04, 2017 09:19
[2017-03-03] MEDS: INSULIN GLARGINE [LANtus] 3 ML PEN SC SCH (21:08)
[2017-03-04] VITALS (29 sets, daily range): BP systolic 114–137; BP diastolic 54–71; PULSE 72–92; RESP 15–22
[2017-03-04 00:04] LABS: ADD UMIC YES; UR ASCORBIC ACID 40 mg/dL (NEGATIVE); UR BACTERIA FEW /HPF (NONE SEEN); UR BILIRUBIN (Dip) NEGATIVE (NEGATIVE); UR BLOOD (Dip) NEGATIVE (NEGATIVE); UR BUDDING YEAST MANY /HPF (NONE SEEN); UR CLARITY CLOUDY (CLEAR); UR COLOR YELLOW (YELLOW); UR GLUCOSE (Dip) NEGATIVE (NEGATIVE); UR KETONES (Dip) NEGATIVE (NEGATIVE); UR LEUKOCYTE ESTERASE (Dip) 3+ Leu/ul (NEGATIVE); UR NITRITE (Dip) NEGATIVE (NEGATIVE); UR RBC 3 /HPF (0-5); UR SPECIFIC GRAVITY (Dip) 1.013 (1.003-1.030); UR TOTAL PROTEIN (Dip) 1+ mg/dl (NEGATIVE); UR UROBILINOGEN (Dip) NEGATIVE (NEGATIVE)
[2017-03-04] MEDS: NYSTATIN SUSP 5 ML CUP PO SCH ×4 (00:57→17:04)
[2017-03-04] MEDS: INSULIN ASPART [NOVOLOG] 3 ML PEN SC SCH ×6 (00:57→21:18)
[2017-03-04] MEDS: METOCLOPRAMIDE 10 MG INJ IV SCH ×4 (00:57→17:04)
[2017-03-04] MEDS: ACETAMINOPHEN 650MG/20.3ML CUP NGT PRN (01:06)
[2017-03-04] MEDS: ALBUTEROL 18 GM INHALER INH SCH ×4 (02:25→20:59)
[2017-03-04] MEDS: LANSOPRAZOLE 30 MG CAP GTB SCH (05:25)
[2017-03-04 06:34] LABS: ADD SCAN DIFF NO
[2017-03-04 06:37] LABS: BASOPHILS % 0.2 % (0.0-2.0); EOSINOPHILS # 0.1 10^3/ul (0.0-0.5); EOSINOPHILS % 0.7 % (0.0-7.0); HEMATOCRIT 25.8 % (42.0-52.0); HEMOGLOBIN 8.2 g/dl (14.0-18.0); LYMPHOCYTES # 0.8 10^3/ul (0.8-2.9); LYMPHOCYTES % 8.8 % (15.0-51.0); MEAN CORPUSCULAR HEMOGLOBIN 28.8 pg (29.0-33.0); MEAN CORPUSCULAR HGB CONC 31.8 g/dl (32.0-37.0); MEAN CORPUSCULAR VOLUME 90.5 fl (82.0-101.0); MEAN PLATELET VOLUME 9.8 fl (7.4-10.4); MONOCYTE # 0.8 10^3/ul (0.3-0.9); MONOCYTES % 8.8 % (0.0-11.0); NEUTROPHIL # 7.3 10^3/ul (1.6-7.5); NEUTROPHILS % 80.3 % (39.0-77.0); PLATELET COUNT 179 10^3/UL (140-415); RED BLOOD COUNT 2.85 10^6/ul (4.70-6.10); RED CELL DISTRIBUTION WIDTH 14.3 % (11.5-14.5)
[2017-03-04 07:13] LABS: CALCIUM 8.1 mg/dl (8.4-10.2); CREATININE 0.67 mg/dl (0.61-1.24)
[2017-03-04] MEDS: LEVETIRACETAM (100 MG/ML) 5ML CUP NGT SCH (08:13)
[2017-03-04] MEDS: ZINC SULFATE 220 MG CAP GTB SCH (08:13)
[2017-03-04] MEDS: MULTIVITAMINS 30 ML CUP GTB SCH (08:13)
[2017-03-04] MEDS: DOCUSATE SODIUM 10 MG/ML (10ML CUP) GTB SCH ×2 (08:13→21:05)
[2017-03-04] MEDS: APIXABAN 5 MG TABLET GTB SCH ×2 (08:13→21:05)
[2017-03-04] MEDS: ASCORBIC ACID 500 MG TAB GTB SCH (08:13)
[2017-03-04] MEDS: AMIODARONE 200 MG TAB GTB SCH (08:14)
[2017-03-04] MEDS: COLLAGENASE 30 GM TUBE TOP SCH (08:14)
--- NOTE | 2017-03-04 09:59 | CONS ---
Date/Time of Note Date/Time of Note DATE: 03/04/17 TIME: 09:57 Assessment/Plan Assessment/Plan Chief Complaint/Hosp Course - possible UTI - s/p recurrent sepsis due to pneumonia - treated with cefepime, tobramycin, and caspofungin - s/p recurrent pneumonia due to pseudomonas - s/p sepsis due to possible tracheobronchitis/pneumonia - funguria - thrush, refractory to nystatin - recurrent cardiopulmonary arrest on 12/09/2016 and on 01/08/2017 - hypoxic respiratory failure, intubated for the 2nd time on 12/12/2016; extubated 12/18/2016; re-intubated for the 3rd time 01/08/2017, s/p tracheostomy 06/2017 - bleeding from trach site - resolved - acute on chronic anemia due to acute blood loss, requiring blood transfusion - 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 Blood cultures from HD catheter on 12/13/2016 are negative to date. 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 MRI on 12/06/2016 and bone scan on showed early OM of the distal phalanx of the left great toe and left fourth proximal phalanx. superficial swab grew inna only. At present, no e/o persistent infection - recurrent pleural effusion - s/p right pleural effusion s/p thoracentesis with .9L removed on 12/16/2016; ( Note: there is no pleural fluid cx since orders were placed after Right thoracentesis, and Left thoracentesis was not performed on 12/17/16 d/t insufficient fluid) - ARANZA on CKD that progressed to ESRD and started on HD from 12/09/2016 - oliguria - improved - A fib -> PAF - small nonreversible perfusion abnormality in the inferoapical and inferior carver; EF 36% per Lexiscan 12/24/2016 - severe , EF 40-45% per TTE 12/17/16 - DM - Hgb A1c 8.7% - HTN associated with DM - acute encephalopathy with anoxic brain injury - unstageable decubitus ulcer of coccyx, no evidence of infection - dysphagia s/p G-tube placement 02/08/2017 NOTE: Pt completed 6 weeks (12/03/2016-01/15/2017) of antibiotics to treat early OM of the distal phalanx of the left great toe and left fourth proximal phalanx ; s/p pip/tazo 12/03/16-01/08/17; linezolid 01/08/17-01/20/17; caspofungin 01/12/17-01/21/17 and 02/04/17-02/17/17; tobramycin 02/04/2017- 02/15/17 for pseudomonas; cefepime 02/02/17-02/18/17 recommendations: - pending results: final urine culture, blood cultures. (Resp culture was ordered, but not done) - start empiric IV cefepime for UTI - wound care of the coccyx and upper back Problems: Consultation Date/Type/Reason Admit Date/Time Dec 02, 2016 at 21:01 Initial Consult Date 12/03/16 Type of Consultation: Infectious Disease Referring Provider: VIET PARKER MD 24 HR Interval Summary Subjective hx not possible: pt non-verbal Exam/Review of Systems Vital Signs Vitals Vital Signs Date Time Temp Pulse Resp B/P Pulse Ox O2 Delivery O2 Flow Rate FiO2 03/04/17 09:15 85 19 100 30 03/04/17 07:40 98.0 137/63 Intake and Output 03/03/17 03/03/17 03/04/17 15:00 23:00 07:00 Intake Total 1150 ml 1190 ml Output Total 750 ml 400 ml Balance 400 ml 790 ml Exam Constitutional: frail, non-verbal Psych: confusion Head: atraumatic, normocephalic Eyes: nl conjunctiva ENMT: nl external ears & nose Neck: other (trach) Respiratory: crackles/rales, diminished breath sounds Cardiovascular: nl pulses, regular rate and rhythm Gastrointestinal: non-tender, other (NGT), soft Musculoskeletal: nl extremities to inspection Extremities: No edema Neurological: lethargic Skin: rash or lesions (b/l heel and coccyx) Results Result Diagram: 03/04/17 0602 03/04/17 0602 Results 24 hrs Laboratory Tests Test 03/03/17 11:48 03/03/17 17:00 03/03/17 21:04 03/03/17 23:00 Bedside Glucose 128 116 128 Urine Color YELLOW Urine Clarity CLOUDY A Urine pH 6.0 Urine Specific [place] 1.013 Urine Ketones NEGATIVE Urine Nitrite NEGATIVE Urine Bilirubin NEGATIVE Urine Urobilinogen NEGATIVE Urine Leukocyte Esterase 3+ H Urine Microscopic RBC 3 Urine Microscopic WBC 133 H Urine Bacteria FEW A Urine Yeast (Budding) MANY A Urine Hemoglobin NEGATIVE Urine Glucose NEGATIVE Urine Total Protein 1+ H Test 03/04/17 00:56 03/04/17 05:22 03/04/17 06:02 03/04/17 08:16 Bedside Glucose 119 125 130 White Blood Count 9.0 Red Blood Count 2.85 L Hemoglobin 8.2 L Hematocrit 25.8 L Mean Corpuscular Volume 90.5 Mean Corpuscular Hemoglobin 28.8 L Mean Corpuscular Hemoglobin Concent 31.8 L Red Cell Distribution Width 14.3 Platelet Count 179 Mean Platelet Volume 9.8 Neutrophils % 80.3 H Lymphocytes % 8.8 L Monocytes % 8.8 Eosinophils % 0.7 Basophils % 0.2 Neutrophils # 7.3 Lymphocytes # 0.8 Monocytes # 0.8 Eosinophils # 0.1 Basophils # 0.0 Nucleated Red Blood Cells # 0.0 Sodium Level 145 H Potassium Level 4.0 Chloride Level 100 Carbon Dioxide Level 33 H Anion Gap 16 Blood Urea Nitrogen 46 H Creatinine 0.67 Glucose Level 114 Calcium Level 8.1 L Medications Medications Current Medications Ondansetron HCl (Zofran Inj) 4 mg Q6H PRN IV NAUSEA AND/OR VOMITING Last administered on 02/23/17 12:49; Admin Dose 4 MG; Start 12/02/16 at 22:30 Miscellaneous Information 1 ea NOTE XX ; Start 12/02/16 at 23:00 Glucose (Glutose) 15 gm Q15M PRN PO DECREASED GLUCOSE; Start 12/02/16 at 23:00 Glucose (Glutose) 22.5 gm Q15M PRN PO DECREASED GLUCOSE; Start 12/02/16 at 23: 00 Dextrose (D50w Syringe) 25 ml Q15M PRN IV DECREASED GLUCOSE Last administered on 02/24/17 05:56; Admin Dose 25 ML; Start 12/02/16 at 23:00 Dextrose (D50w Syringe) 50 ml Q15M PRN IV DECREASED GLUCOSE Last administered on 01/23/17 04:58; Admin Dose 50 ML; Start 12/02/16 at 23:00 Glucagon (Glucagen) 1 mg Q15M PRN IM DECREASED GLUCOSE; Start 12/02/16 at 23:00 Glucose (Glutose) 15 gm Q15M PRN BUCCAL DECREASED GLUCOSE; Start 12/02/16 at 23 :00 Acetaminophen (Tylenol Supp) 650 mg Q6H PRN [place] ELEVATED TEMPERATURE Last administered on 01/13/17 20:32; Admin Dose 650 MG; Start 12/09/16 at 17:00 Hydralazine HCl (Apresoline) 10 mg Q6H PRN IV SBP>150mm hg Last administered on 12/19/16 08:50; Admin Dose 10 MG; Start 12/11/16 at 10:30 Morphine Sulfate (morphine) 2 mg Q2H PRN IV PAIN LEVEL 4-7; Start 12/13/16 at 10 :00 Collagenase (Santyl) 1 applic DAILY TOP Last administered on 03/04/17 08:14; Admin Dose 1 APPLIC; Start 01/04/17 at 09:00 Metoprolol Tartrate (Lopressor) 5 mg Q4 PRN IV FOR H.R>110; Start 01/12/17 at 17:30 Acetaminophen (Tylenol Liquid) 650 mg Q6H PRN NGT PAIN AND OR ELEVATED TEMP Last administered on 03/04/17 01:06; Admin Dose 650 MG; Start 01/13/17 at 23:30 Acetaminophen/ Hydrocodone Bitart ([place] (5/325)) 1 tab Q6H PRN NGT PAIN LEVEL 4-7; Start 01/13/17 at 23:30 Levetiracetam (Keppra Liquid) 1,000 mg DAILY NGT Last administered on 08:13; Admin Dose 1,000 MG; Start 01/14/17 at 09:00 Meclizine HCl (Antivert) 25 mg TID PRN NGT dizziness; Start 01/13/17 at 20:00 Zolpidem Tartrate (Ambien) 5 mg HS PRN NGT INSOMNIA; Start 01/13/17 at 20:00 Metoprolol Tartrate (Lopressor) 12.5 mg BID NGT Last administered on 02/24/17 10:54; Admin Dose 12.5 MG; Start 01/24/17 at 21:00; Status Future Hold Nystatin (Nystatin Susp) 5 ml Q6 PO Last administered on 03/04/17 05:25; Admin Dose 5 ML; Start 01/31/17 at 12:00 Lansoprazole (Prevacid) 30 mg DAILY@06 GTB Last administered on 03/04/17 05:25 ; Admin Dose 30 MG; Start 02/09/17 at 06:00 Zinc Sulfate (Zinc Sulfate) 220 mg DAILY GTB Last administered on 03/04/17 08: 13; Admin Dose 220 MG; Start 02/14/17 at 15:00 Multivitamins (Multivitamin) 30 ml DAILY GTB Last administered on 03/04/17 08: 13; Admin Dose 30 ML; Start 02/14/17 at 16:30 Docusate Sodium (Colace Liquid Cup) 100 mg BID GTB Last administered on 08:13; Admin Dose 100 MG; Start 02/14/17 at 21:00 Amiodarone HCl (Cordarone) 200 mg DAILY GTB Last administered on 03/04/17 08: 14; Admin Dose 200 MG; Start 02/19/17 at 09:00 Ascorbic Acid (Vitamin C) 500 mg DAILY GTB Last administered on 03/04/17 08:13 ; Admin Dose 500 MG; Start 02/22/17 at 09:00 Insulin Glargine (Lantus) 56 unit DAILY@20 SC Last administered on 03/03/17 21 :08; Admin Dose 56 UNIT; Start 02/22/17 at 20:00 Insulin Aspart NOVOLOG *MODERATE* ALGORI... Q4 SC Last administered on 20:34; Admin Dose 2 UNIT; Start 02/23/17 at 05:00 Sodium Chloride (NS) 1,000 ml @ 40 mls/hr Q24H IV Last administered on 06:13; Admin Dose 40 MLS/HR; Start 02/23/17 at 14:30 Metoclopramide HCl (Reglan) 5 mg Q6 IV Last administered on 03/04/17 05:25; Admin Dose 5 MG; Start 02/23/17 at 18:00 Apixaban (Eliquis) 2.5 mg BID GTB Last administered on 03/04/17 08:13; Admin Dose 2.5 MG; Start 03/03/17 at 21:00 CHRISTY LOPEZ M.D. Mar 04, 2017 09:59
[2017-03-04] MEDS: CEFEPIME HCL 0.5 GM in SOD CHLORIDE 0.9% 50 ML IVPB SCH ×2 (11:42→21:04)
--- NOTE | 2017-03-04 12:36 | CONS ---
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 Blood cultures from HD catheter on 12/13/2016 are negative to date. 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 MRI on 12/06/2016 and bone scan on showed early OM of the distal phalanx of the left great toe and left fourth proximal phalanx. superficial swab grew inna only - s/p right pleural effusion s/p thoracentesis with .9L removed on 12/16/2016 - severe , EF 40-45% per TTE 12/17/16 - DM - Hgb A1c 8.7% - HTN associated with DM - sp Tracheostomy site bleeding Plan: HD today, will conitnue HD on MWF HD today, - H/H- 8.9/27.9 s/p Tracheostomy, on ventilator pt will need HD palcement at a unit where they can do a HD for pt with tracheostomy and PEG tube placemen t- special education case manager has been instructed to set up renal jacob pt has severe , very labile BP sometimes with HD will continue to follow up for HD need Plan of`care Dw Dr Evelina Remy/staff Consultation Date/Type/Reason Admit Date/Time Dec 02, 2016 at 21:01 Initial Consult Date 12/08/16 Type of Consultation: Infectious Disease Referring Provider: VIET PARKER MD 24 HR Interval Summary Free Text/Dictation Afebrile, HD - MWF. Plan for sacral decub debridement, patient is high risk for surgical procedure. If no debridement agreement- will be transferred to [place] [facility]. [facility] staff. Constitutional: requiring IVF, requiring O2 Exam/Review of Systems Vital Signs Vitals Vital Signs Date Time Temp Pulse Resp B/P Pulse Ox O2 Delivery O2 Flow Rate FiO2 03/04/17 11:15 85 18 99 30 03/04/17 07:40 98.0 137/63 Intake and Output 03/03/17 03/03/17 03/04/17 15:00 23:00 07:00 Intake Total 1150 ml 1190 ml Output Total 750 ml 400 ml Balance 400 ml 790 ml Exam Constitutional: non-verbal Respiratory: diminished breath sounds Cardiovascular: nl pulses, other (SR HR 91), regular rate and rhythm Gastrointestinal: non-tender, other (GT intact), soft Musculoskeletal: other Neurological: unresponsive Skin: other (decubs) Results Result Diagram: 03/04/17 0602 03/04/17 0602 Results 24 hrs Laboratory Tests Test 03/03/17 17:00 03/03/17 21:04 03/03/17 23:00 03/04/17 00:56 Bedside Glucose 116 128 119 Urine Color YELLOW Urine Clarity CLOUDY A Urine pH 6.0 Urine Specific Brave 1.013 Urine Ketones NEGATIVE Urine Nitrite NEGATIVE Urine Bilirubin NEGATIVE Urine Urobilinogen NEGATIVE Urine Leukocyte Esterase 3+ H Urine Microscopic RBC 3 Urine Microscopic WBC 133 H Urine Bacteria FEW A Urine Yeast (Budding) MANY A Urine Hemoglobin NEGATIVE Urine Glucose NEGATIVE Urine Total Protein 1+ H Test 03/04/17 05:22 03/04/17 06:02 03/04/17 08:16 03/04/17 12:10 Bedside Glucose 125 130 172 White Blood Count 9.0 Red Blood Count 2.85 L Hemoglobin 8.2 L Hematocrit 25.8 L Mean Corpuscular Volume 90.5 Mean Corpuscular Hemoglobin 28.8 L Mean Corpuscular Hemoglobin Concent 31.8 L Red Cell Distribution Width 14.3 Platelet Count 179 Mean Platelet Volume 9.8 Neutrophils % 80.3 H Lymphocytes % 8.8 L Monocytes % 8.8 Eosinophils % 0.7 Basophils % 0.2 Neutrophils # 7.3 Lymphocytes # 0.8 Monocytes # 0.8 Eosinophils # 0.1 Basophils # 0.0 Nucleated Red Blood Cells # 0.0 Sodium Level 145 H Potassium Level 4.0 Chloride Level 100 Carbon Dioxide Level 33 H Anion Gap 16 Blood Urea Nitrogen 46 H Creatinine 0.67 Glucose Level 114 Calcium Level 8.1 L Medications Medications Current Medications Ondansetron HCl (Zofran Inj) 4 mg Q6H PRN IV NAUSEA AND/OR VOMITING Last administered on 02/23/17 12:49; Admin Dose 4 MG; Start 12/02/16 at 22:30 Miscellaneous Information 1 ea NOTE XX ; Start 12/02/16 at 23:00 Glucose (Glutose) 15 gm Q15M PRN PO DECREASED GLUCOSE; Start 12/02/16 at 23:00 Glucose (Glutose) 22.5 gm Q15M PRN PO DECREASED GLUCOSE; Start 12/02/16 at 23: 00 Dextrose (D50w Syringe) 25 ml Q15M PRN IV DECREASED GLUCOSE Last administered on 02/24/17 05:56; Admin Dose 25 ML; Start 12/02/16 at 23:00 Dextrose (D50w Syringe) 50 ml Q15M PRN IV DECREASED GLUCOSE Last administered on 01/23/17 04:58; Admin Dose 50 ML; Start 12/02/16 at 23:00 Glucagon (Glucagen) 1 mg Q15M PRN IM DECREASED GLUCOSE; Start 12/02/16 at 23:00 Glucose (Glutose) 15 gm Q15M PRN BUCCAL DECREASED GLUCOSE; Start 12/02/16 at 23 :00 Acetaminophen (Tylenol Supp) 650 mg Q6H PRN [place] ELEVATED TEMPERATURE Last administered on 01/13/17 20:32; Admin Dose 650 MG; Start 12/09/16 at 17:00 Hydralazine HCl (Apresoline) 10 mg Q6H PRN IV SBP>150mm hg Last administered on 12/19/16 08:50; Admin Dose 10 MG; Start 12/11/16 at 10:30 Morphine Sulfate (morphine) 2 mg Q2H PRN IV PAIN LEVEL 4-7; Start 12/13/16 at 10 :00 Collagenase (Santyl) 1 applic DAILY TOP Last administered on 03/04/17 08:14; Admin Dose 1 APPLIC; Start 01/04/17 at 09:00 Metoprolol Tartrate (Lopressor) 5 mg Q4 PRN IV FOR H.R>110; Start 01/12/17 at 17:30 Acetaminophen (Tylenol Liquid) 650 mg Q6H PRN NGT PAIN AND OR ELEVATED TEMP Last administered on 03/04/17 01:06; Admin Dose 650 MG; Start 01/13/17 at 23:30 Acetaminophen/ Hydrocodone Bitart ([place] (5/325)) 1 tab Q6H PRN NGT PAIN LEVEL 4-7; Start 01/13/17 at 23:30 Levetiracetam (Keppra Liquid) 1,000 mg DAILY NGT Last administered on 08:13; Admin Dose 1,000 MG; Start 01/14/17 at 09:00 Meclizine HCl (Antivert) 25 mg TID PRN NGT dizziness; Start 01/13/17 at 20:00 Zolpidem Tartrate (Ambien) 5 mg HS PRN NGT INSOMNIA; Start 01/13/17 at 20:00 Metoprolol Tartrate (Lopressor) 12.5 mg BID NGT Last administered on 02/24/17 10:54; Admin Dose 12.5 MG; Start 01/24/17 at 21:00; Status Future Hold Nystatin (Nystatin Susp) 5 ml Q6 PO Last administered on 03/04/17 11:42; Admin Dose 5 ML; Start 01/31/17 at 12:00 Lansoprazole (Prevacid) 30 mg DAILY@06 GTB Last administered on 03/04/17 05:25 ; Admin Dose 30 MG; Start 02/09/17 at 06:00 Multivitamins (Multivitamin) 30 ml DAILY GTB Last administered on 03/04/17 08: 13; Admin Dose 30 ML; Start 02/14/17 at 16:30 Docusate Sodium (Colace Liquid Cup) 100 mg BID GTB Last administered on 08:13; Admin Dose 100 MG; Start 02/14/17 at 21:00 Amiodarone HCl (Cordarone) 200 mg DAILY GTB Last administered on 03/04/17 08: 14; Admin Dose 200 MG; Start 02/19/17 at 09:00 Ascorbic Acid (Vitamin C) 500 mg DAILY GTB Last administered on 03/04/17 08:13 ; Admin Dose 500 MG; Start 02/22/17 at 09:00 Insulin Glargine (Lantus) 56 unit DAILY@20 SC Last administered on 03/03/17 21 :08; Admin Dose 56 UNIT; Start 02/22/17 at 20:00 Insulin Aspart NOVOLOG *MODERATE* ALGORI... Q4 SC Last administered on 12:14; Admin Dose 2 UNIT; Start 02/23/17 at 05:00 Sodium Chloride (NS) 1,000 ml @ 40 mls/hr Q24H IV Last administered on 06:13; Admin Dose 40 MLS/HR; Start 02/23/17 at 14:30 Metoclopramide HCl (Reglan) 5 mg Q6 IV Last administered on 03/04/17 11:42; Admin Dose 5 MG; Start 02/23/17 at 18:00 Apixaban 2.5 mg 2.5 mg BID GTB Last administered on 03/04/17 08:13; Admin Dose 2.5 MG; Start 03/03/17 at 21:00 Cefepime HCl/ Sodium Chloride (Maxipime/NS) 50 ml @ 100 mls/hr Q12 IVPB Last administered on 03/04/17 11:42; Admin Dose 100 MLS/HR; Start 03/04/17 at 12:00 YULIANA SIMMONS Mar 04, 2017 12:35
[2017-03-04] MEDS: SOD CHLORIDE 0.9% 1,000 ML IV SCH (16:38)
--- NOTE | 2017-03-04 18:49 | PN ---
Date/Time of Note Date/Time of Note DATE: 03/04/17 TIME: 18:39 Assessment/Plan Lines/Catheters IV Catheter Type (from Nrs): Peripheral IV Assessment/Plan Chief Complaint/Hosp Course 1. Multiple wounds with slough and debris; sacrococcygeal unstageable -debridement -specialty mattress -frequent turning and offloading -optimize nutrition -vitamin C/ short term zinc 2. Sepsis: multifactorial: multiple wounds +pneumonia + fungemia+ other; wbc normalized -abx per sensitivity -supportive 3. Respiratory failure s/p tracheostomy: 2/2 pna + pl effusions; s/p arrests x2 4. G-tube placement: tolerating tf 5. Thrush: on nystatin 6. ESRD: on dialysis - per nephrology 7. Paroxysmal atrial fibrillation. Eliquis 8. Diabetes: on lantus and sliding scale -blood sugar optimization 9. Diabetic foot ulcer with osteomyelitis of the distal phalanx of the great left toe -podiatry consult -diabetes management 10. Encephalopathy +/- CVA: Acute to subacute right occipital lobe ischemic infarct per CT; awake, responsive -supportive 11. Anemia: likely chronic disease,doubt acute bleed; h/h stable -monitor -transfuse as needed Patient seen and examined in collaboration with Dr. Vincent Brown Problems: Subjective 24 Hr Interval Summary Awake and responsive. comfortable on vent. Tolerating feedings. No c/o pain, discomfort, fevers, chills, n/v/d, morales, sz, sob, cough. Exam/Review of Systems Vital Signs Vitals Vital Signs Date Time Temp Pulse Resp B/P Pulse Ox O2 Delivery O2 Flow Rate FiO2 03/04/17 17:10 90 19 98 30 03/04/17 16:06 98.0 118/58 Intake and Output 03/03/17 03/03/17 03/04/17 15:00 23:00 07:00 Intake Total 1150 ml 1190 ml Output Total 750 ml 400 ml Balance 400 ml 790 ml Exam Free Text/Dictation Constitutional: alert, non-verbal, No distress Psych: other (flat affect) Head: atraumatic, normocephalic Eyes: PERRL ENMT: No mucosa pink and moist (dry) Neck: other (tracheostomy, no drainage peristoma), supple Respiratory: crackles/rales, diminished breath sounds Cardiovascular: regular rate and rhythm Gastrointestinal: non-tender, other (gtube), soft Musculoskeletal: muscle weakness Extremities: edema (BUE +2), normal pulses Neurological: other (nonverbal), No nl speech, No nl strength Skin: other (multiple wounds: sacral unstageable with necrotic tissue and slough, periwound erythema; see nurses notes and pictures) Results Result Diagram: 03/04/17 0602 03/04/17 0602 PERLA MUJICA NP Mar 04, 2017 18:49
[2017-03-04] MEDS: INSULIN GLARGINE [LANtus] 3 ML PEN SC SCH (21:17)
[2017-03-05] VITALS (24 sets, daily range): BP systolic 100–130; BP diastolic 56–87; PULSE 82–89; RESP 16–22
[2017-03-05] MEDS: NYSTATIN SUSP 5 ML CUP PO SCH ×4 (00:37→17:44)
[2017-03-05] MEDS: METOCLOPRAMIDE 10 MG INJ IV SCH ×4 (00:37→17:44)
[2017-03-05] MEDS: ALBUTEROL 18 GM INHALER INH SCH ×4 (00:42→20:45)
[2017-03-05] MEDS: INSULIN ASPART [NOVOLOG] 3 ML PEN SC SCH ×6 (00:42→21:00)
[2017-03-05] MEDS: LANSOPRAZOLE 30 MG CAP GTB SCH (05:43)
[2017-03-05 07:41] LABS: BASOPHILS % 0.2 % (0.0-2.0); EOSINOPHILS # 0.1 10^3/ul (0.0-0.5); EOSINOPHILS % 0.6 % (0.0-7.0); HEMATOCRIT 27.3 % (42.0-52.0); HEMOGLOBIN 8.7 g/dl (14.0-18.0); LYMPHOCYTES # 0.9 10^3/ul (0.8-2.9); LYMPHOCYTES % 8.2 % (15.0-51.0); MEAN CORPUSCULAR HEMOGLOBIN 29.3 pg (29.0-33.0); MEAN CORPUSCULAR HGB CONC 31.9 g/dl (32.0-37.0); MEAN CORPUSCULAR VOLUME 91.9 fl (82.0-101.0); MEAN PLATELET VOLUME 9.9 fl (7.4-10.4); MONOCYTE # 1.1 10^3/ul (0.3-0.9); MONOCYTES % 9.8 % (0.0-11.0); NEUTROPHIL # 8.7 10^3/ul (1.6-7.5); NEUTROPHILS % 80.2 % (39.0-77.0); PLATELET COUNT 170 10^3/UL (140-415); POSITIVE DIFF @See below; RED BLOOD COUNT 2.97 10^6/ul (4.70-6.10); RED CELL DISTRIBUTION WIDTH 14.2 % (11.5-14.5); WHITE BLOOD COUNT 10.9 10^3/ul (4.8-10.8)
[2017-03-05 07:51] LABS: CALCIUM 8.2 mg/dl (8.4-10.2); CREATININE 0.61 mg/dl (0.61-1.24); POTASSIUM 4.1 mmol/L (3.5-5.1)
[2017-03-05] MEDS: DOCUSATE SODIUM 10 MG/ML (10ML CUP) GTB SCH ×2 (09:49→21:05)
[2017-03-05] MEDS: LEVETIRACETAM (100 MG/ML) 5ML CUP NGT SCH (09:49)
[2017-03-05] MEDS: MULTIVITAMINS 30 ML CUP GTB SCH (09:49)
[2017-03-05] MEDS: APIXABAN 5 MG TABLET GTB SCH ×2 (09:50→21:05)
[2017-03-05] MEDS: AMIODARONE 200 MG TAB GTB SCH (09:50)
[2017-03-05] MEDS: ASCORBIC ACID 500 MG TAB GTB SCH (09:50)
[2017-03-05] MEDS: COLLAGENASE 30 GM TUBE TOP SCH (09:51)
[2017-03-05] MEDS: CEFEPIME HCL 0.5 GM in SOD CHLORIDE 0.9% 50 ML IVPB SCH ×2 (09:54→21:11)
--- NOTE | 2017-03-05 10:50 | CONS ---
Date/Time of Note Date/Time of Note DATE: 03/05/17 TIME: 10:47 Assessment/Plan Assessment/Plan Additional Assessment/Plan -S/p cardiopulmonary arrest on 12/09/2016 and on 01/08/2017 - 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 Blood cultures from HD catheter on 12/13/2016 are negative to date. 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 MRI on 12/06/2016 and bone scan on showed early OM of the distal phalanx of the left great toe and left fourth proximal phalanx. superficial swab grew inna only - s/p right pleural effusion s/p thoracentesis with .9L removed on 12/16/2016 - severe , EF 40-45% per TTE 12/17/16 - DM - Hgb A1c 8.7% - HTN associated with DM - sp Tracheostomy site bleeding Plan: will conitnue HD on - next HD on Tuesday continue epogen for anemia s/p Tracheostomy, on ventilator pt will need HD palcement at a unit where they can do a HD for pt with tracheostomy and PEG tube placemen t- telephonic case manager worked on it pt has severe , very labile BP sometimes with HD will continue to follow up for HD need Consultation Date/Type/Reason Admit Date/Time Dec 02, 2016 at 21:01 Initial Consult Date Type of Consultation: NEPHROLOGY Reason for Consultation ESRD on HD, Chronic resp failure s/p tracheostomy Referring Provider: VIET PARKER MD 24 HR Interval Summary Free Text/Dictation pt non verbal, no acute events overnight Exam/Review of Systems Vital Signs Vitals Vital Signs Date Time Temp Pulse Resp B/P Pulse Ox O2 Delivery O2 Flow Rate FiO2 03/05/17 09:15 82 18 100 30 03/05/17 07:11 99.8 118/63 Intake and Output 03/04/17 03/04/17 03/05/17 15:00 23:00 07:00 Intake Total 500 ml 1210 ml 1170 ml Output Total 3000 ml 650 ml 500 ml Balance -2500 ml 560 ml 670 ml Exam Constitutional: non-verbal Psych: confusion Head: atraumatic, normocephalic+ tracheostomy Respiratory: clear to auscultation, normal air movement Cardiovascular: nl pulses, regular rate and rhythm Gastrointestinal: non-tender, soft Extremities: No edema Neurological: lethargic Skin: rash or lesions (decubitus ulcer is clean, non-purulent, well vascularized tissue) Results Result Diagram: 03/05/17 0655 03/05/17 0655 Results 24 hrs Laboratory Tests Test 03/04/17 12:10 03/04/17 16:36 03/04/17 21:13 03/05/17 00:36 Bedside Glucose 172 157 160 157 Test 03/05/17 05:41 03/05/17 06:55 03/05/17 09:48 Bedside Glucose 112 112 White Blood Count 10.9 #H Red Blood Count 2.97 L Hemoglobin 8.7 L Hematocrit 27.3 L Mean Corpuscular Volume 91.9 Mean Corpuscular Hemoglobin 29.3 Mean Corpuscular Hemoglobin Concent 31.9 L Red Cell Distribution Width 14.2 Platelet Count 170 Mean Platelet Volume 9.9 Neutrophils % 80.2 H Lymphocytes % 8.2 L Monocytes % 9.8 Eosinophils % 0.6 Basophils % 0.2 Nucleated Red Blood Cells % 0.0 Neutrophils # 8.7 H Lymphocytes # 0.9 Monocytes # 1.1 H Eosinophils # 0.1 Basophils # 0.0 Nucleated Red Blood Cells # 0.0 Sodium Level 143 Potassium Level 4.1 Chloride Level 96 L Carbon Dioxide Level 32 H Anion Gap 19 H Blood Urea Nitrogen 36 H Creatinine 0.61 Glucose Level 108 Calcium Level 8.2 L Medications Medications Current Medications Ondansetron HCl (Zofran Inj) 4 mg Q6H PRN IV NAUSEA AND/OR VOMITING Last administered on 02/23/17t 12:49; Admin Dose 4 MG; Start 12/02/16 at 22:30 Miscellaneous Information 1 ea NOTE XX ; Start 12/02/16 at 23:00 Glucose (Glutose) 15 gm Q15M PRN PO DECREASED GLUCOSE; Start 12/02/16 at 23:00 Glucose (Glutose) 22.5 gm Q15M PRN PO DECREASED GLUCOSE; Start 12/02/16 at 23: 00 Dextrose (D50w Syringe) 25 ml Q15M PRN IV DECREASED GLUCOSE Last administered on 02/24/17 05:56; Admin Dose 25 ML; Start 12/02/16 at 23:00 Dextrose (D50w Syringe) 50 ml Q15M PRN IV DECREASED GLUCOSE Last administered on 01/23/17 04:58; Admin Dose 50 ML; Start 12/02/16 at 23:00 Glucagon (Glucagen) 1 mg Q15M PRN IM DECREASED GLUCOSE; Start 12/02/16 at 23:00 Glucose (Glutose) 15 gm Q15M PRN BUCCAL DECREASED GLUCOSE; Start 12/02/16 at 23 :00 Acetaminophen (Tylenol Supp) 650 mg Q6H PRN [place] ELEVATED TEMPERATURE Last administered on 01/13/17 20:32; Admin Dose 650 MG; Start 12/09/16 at 17:00 Hydralazine HCl (Apresoline) 10 mg Q6H PRN IV SBP>150mm hg Last administered on 12/19/16 08:50; Admin Dose 10 MG; Start 12/11/16 at 10:30 Morphine Sulfate (morphine) 2 mg Q2H PRN IV PAIN LEVEL 4-7; Start 12/13/16 at 10 :00 Collagenase (Santyl) 1 applic DAILY TOP Last administered on 03/05/17 09:51; Admin Dose 1 APPLIC; Start 01/04/17 at 09:00 Metoprolol Tartrate (Lopressor) 5 mg Q4 PRN IV FOR H.R>110; Start 01/12/17 at 17:30 Acetaminophen (Tylenol Liquid) 650 mg Q6H PRN NGT PAIN AND OR ELEVATED TEMP Last administered on 03/04/17 01:06; Admin Dose 650 MG; Start 01/13/17 at 23:30 Acetaminophen/ Hydrocodone Bitart ([place] (5/325)) 1 tab Q6H PRN NGT PAIN LEVEL 4-7; Start 01/13/17 at 23:30 Levetiracetam (Keppra Liquid) 1,000 mg DAILY NGT Last administered on 09:49; Admin Dose 1,000 MG; Start 01/14/17 at 09:00 Meclizine HCl (Antivert) 25 mg TID PRN NGT dizziness; Start 01/13/17 at 20:00 Zolpidem Tartrate (Ambien) 5 mg HS PRN NGT INSOMNIA; Start 01/13/17 at 20:00 Metoprolol Tartrate (Lopressor) 12.5 mg BID NGT Last administered on 02/24/17 10:54; Admin Dose 12.5 MG; Start 01/24/17 at 21:00; Status Future Hold Nystatin (Nystatin Susp) 5 ml Q6 PO Last administered on 03/05/17 05:43; Admin Dose 5 ML; Start 01/31/17 at 12:00 Lansoprazole (Prevacid) 30 mg DAILY@06 GTB Last administered on 03/05/17 05:43 ; Admin Dose 30 MG; Start 02/09/17 at 06:00 Multivitamins (Multivitamin) 30 ml DAILY GTB Last administered on 03/05/17 09: 49; Admin Dose 30 ML; Start 02/14/17 at 16:30 Docusate Sodium (Colace Liquid Cup) 100 mg BID GTB Last administered on 09:49; Admin Dose 100 MG; Start 02/14/17 at 21:00 Amiodarone HCl (Cordarone) 200 mg DAILY GTB Last administered on 03/05/17 09: 50; Admin Dose 200 MG; Start 02/19/17 at 09:00 Ascorbic Acid (Vitamin C) 500 mg DAILY GTB Last administered on 03/05/17 09:50 ; Admin Dose 500 MG; Start 02/22/17 at 09:00 Insulin Glargine (Lantus) 56 unit DAILY@20 SC Last administered on 03/04/17 21 :17; Admin Dose 56 UNIT; Start 02/22/17 at 20:00 Insulin Aspart NOVOLOG *MODERATE* ALGORI... Q4 SC Last administered on 00:42; Admin Dose 2 UNIT; Start 02/23/17 at 05:00 Sodium Chloride (NS) 1,000 ml @ 40 mls/hr Q24H IV Last administered on 16:38; Admin Dose 40 MLS/HR; Start 02/23/17 at 14:30 Metoclopramide HCl (Reglan) 5 mg Q6 IV Last administered on 03/05/17 05:43; Admin Dose 5 MG; Start 02/23/17 at 18:00 Apixaban 2.5 mg 2.5 mg BID GTB Last administered on 03/05/17 09:50; Admin Dose 2.5 MG; Start 03/03/17 at 21:00 Cefepime HCl/ Sodium Chloride (Maxipime/NS) 50 ml @ 100 mls/hr Q12 IVPB Last administered on 03/05/17 09:54; Admin Dose 100 MLS/HR; Start 03/04/17 at 12:00 TASHIA MCGARRY MD Mar 05, 2017 10:50
[2017-03-05] MEDS: SOD CHLORIDE 0.9% 1,000 ML IV SCH (14:30)
--- NOTE | 2017-03-05 15:08 | PN ---
Date/Time of Note Date/Time of Note DATE: 03/05/17 TIME: 15:07 Assessment/Plan VTE Prophylaxis VTE Prophylaxis Intervention: other Lines/Catheters IV C[facility]ter Type (from [facility] Peripheral IV Urinary Cath still in place: No (condom ) Assessment/Plan Assessment/Plan -Recurrent UTI, continue antibiotics per ID. - Sacral decubitus ulcer, DrGurpreet Brown is asked to see patient in surgical consultation. - Possible recurrent sepsis, resolving. Continue antibiotics per ID. Dr Celena pritchard is following infection disease consultation. - Dysphagia. S/p G-tube by Dr. Smith. Continue G-tube feeding, monitor residual. - Anemia of blood loss. Continue to monitor H&H, transfuse as needed. - Status post cardiopulmonary arrest on 12/09/2016 and 01/08/2017. Continue ventilatory support. - Anoxic encephalopathy. Continue Keppra. - Status post tracheostomy on 01/23/2017. Continue tracheostomy care. - End-stage renal disease. Continue hemodialysis per nephrology. - Paroxysmal atrial fibrillation. Continue Eliquis. - Diabetes mellitus type 2. Continue Lantus and NovoLog with sliding scale coverage with Accu-Cheks q. 4 hours. - Diabetic foot ulcer. Continue current wound care. - Osteomyelitis of the distal phalanx of the great left toe. Completed treatment for antibiotics. Continue sequential compression device for deep venous thrombosis prophylaxis and Protonix for peptic ulcer disease prophylaxis. Further recommendations based on clinical course. Plan of care discussed with Dr. Heredia. Subjective 24 Hr Interval Summary Subjective hx not possible: pt non-verbal Constitutional: requiring IVF, requiring O2 Exam/Review of Systems Vital Signs Vitals Vital Signs Date Time Temp Pulse Resp B/P Pulse Ox O2 Delivery O2 Flow Rate FiO2 03/05/17 12:40 86 03/05/17 11:24 20 99 30 03/05/17 10:55 98.2 130/68 Intake and Output 03/04/17 03/04/17 03/05/17 15:00 23:00 07:00 Intake Total 500 ml 1210 ml 1170 ml Output Total 3000 ml 650 ml 500 ml Balance -2500 ml 560 ml 670 ml Exam Respiratory: diminished breath sounds Cardiovascular: nl pulses, regular rate and rhythm Gastrointestinal: non-tender, soft Neurological: unresponsive Results Result Diagram: 03/05/1765403/05/17654 Results 24 hrs Laboratory Tests Test 03/04/17 16:36 03/04/17 21:13 03/05/17 00:36 03/05/17 05:41 Bedside Glucose 157 160 157 112 Test 03/05/17 06:55 03/05/17 09:48 03/05/17 13:09 White Blood Count 10.9 #H Red Blood Count 2.97 L Hemoglobin 8.7 L Hematocrit 27.3 L Mean Corpuscular Volume 91.9 Mean Corpuscular Hemoglobin 29.3 Mean Corpuscular Hemoglobin Concent 31.9 L Red Cell Distribution Width 14.2 Platelet Count 170 Mean Platelet Volume 9.9 Neutrophils % 80.2 H Lymphocytes % 8.2 L Monocytes % 9.8 Eosinophils % 0.6 Basophils % 0.2 Nucleated Red Blood Cells % 0.0 Neutrophils # 8.7 H Lymphocytes # 0.9 Monocytes # 1.1 H Eosinophils # 0.1 Basophils # 0.0 Nucleated Red Blood Cells # 0.0 Sodium Level 143 Potassium Level 4.1 Chloride Level 96 L Carbon Dioxide Level 32 H Anion Gap 19 H Blood Urea Nitrogen 36 H Creatinine 0.61 Glucose Level 108 Calcium Level 8.2 L Bedside Glucose 112 139 Medications Medications Current Medications Ondansetron HCl (Zofran Inj) 4 mg Q6H PRN IV NAUSEA AND/OR VOMITING Last administered on 02/23/17 12:49; Admin Dose 4 MG; Start 12/02/16 at 22:30 Miscellaneous Information 1 ea NOTE XX ; Start 12/02/16 at 23:00 Glucose (Glutose) 15 gm Q15M PRN PO DECREASED GLUCOSE; Start 12/02/16 at 23:00 Glucose (Glutose) 22.5 gm Q15M PRN PO DECREASED GLUCOSE; Start 12/02/16 at 23: 00 Dextrose (D50w Syringe) 25 ml Q15M PRN IV DECREASED GLUCOSE Last administered on 02/24/17 05:56; Admin Dose 25 ML; Start 12/02/16 at 23:00 Dextrose (D50w Syringe) 50 ml Q15M PRN IV DECREASED GLUCOSE Last administered on 01/23/17 04:58; Admin Dose 50 ML; Start 12/02/16 at 23:00 Glucagon (Glucagen) 1 mg Q15M PRN IM DECREASED GLUCOSE; Start 12/02/16 at 23:00 Glucose (Glutose) 15 gm Q15M PRN BUCCAL DECREASED GLUCOSE; Start 12/02/16 at 23 :00 Acetaminophen (Tylenol Supp) 650 mg Q6H PRN [place] ELEVATED TEMPERATURE Last administered on 01/13/17 20:32; Admin Dose 650 MG; Start 12/09/16 at 17:00 Hydralazine HCl (Apresoline) 10 mg Q6H PRN IV SBP>150mm hg Last administered on 12/19/16 08:50; Admin Dose 10 MG; Start 12/11/16 at 10:30 Morphine Sulfate (morphine) 2 mg Q2H PRN IV PAIN LEVEL 4-7; Start 12/13/16 at 10 :00 Collagenase (Santyl) 1 applic DAILY TOP Last administered on 03/05/17 09:51; Admin Dose 1 APPLIC; Start 01/04/17 at 09:00 Metoprolol Tartrate (Lopressor) 5 mg Q4 PRN IV FOR H.R>110; Start 01/12/17 at 17:30 Acetaminophen (Tylenol Liquid) 650 mg Q6H PRN NGT PAIN AND OR ELEVATED TEMP Last administered on 03/04/17 01:06; Admin Dose 650 MG; Start 01/13/17 at 23:30 Acetaminophen/ Hydrocodone Bitart ([place] (5/325)) 1 tab Q6H PRN NGT PAIN LEVEL 4-7; Start 01/13/17 at 23:30 Levetiracetam (Keppra Liquid) 1,000 mg DAILY NGT Last administered on 09:49; Admin Dose 1,000 MG; Start 01/14/17 at 09:00 Meclizine HCl (Antivert) 25 mg TID PRN NGT dizziness; Start 01/13/17 at 20:00 Zolpidem Tartrate (Ambien) 5 mg HS PRN NGT INSOMNIA; Start 01/13/17 at 20:00 Metoprolol Tartrate (Lopressor) 12.5 mg BID NGT Last administered on 02/24/17 10:54; Admin Dose 12.5 MG; Start 01/24/17 at 21:00; Status Future Hold Nystatin (Nystatin Susp) 5 ml Q6 PO Last administered on 03/05/17 12:44; Admin Dose 5 ML; Start 01/31/17 at 12:00 Lansoprazole (Prevacid) 30 mg DAILY@06 GTB Last administered on 03/05/17 05:43 ; Admin Dose 30 MG; Start 02/09/17 at 06:00 Multivitamins (Multivitamin) 30 ml DAILY GTB Last administered on 03/05/17 09: 49; Admin Dose 30 ML; Start 02/14/17 at 16:30 Docusate Sodium (Colace Liquid Cup) 100 mg BID GTB Last administered on 09:49; Admin Dose 100 MG; Start 02/14/17 at 21:00 Amiodarone HCl (Cordarone) 200 mg DAILY GTB Last administered on 03/05/17 09: 50; Admin Dose 200 MG; Start 02/19/17 at 09:00 Ascorbic Acid (Vitamin C) 500 mg DAILY GTB Last administered on 03/05/17 09:50 ; Admin Dose 500 MG; Start 02/22/17 at 09:00 Insulin Glargine (Lantus) 56 unit DAILY@20 SC Last administered on 03/04/17 21 :17; Admin Dose 56 UNIT; Start 02/22/17 at 20:00 Insulin Aspart NOVOLOG *MODERATE* ALGORI... Q4 SC Last administered on 00:42; Admin Dose 2 UNIT; Start 02/23/17 at 05:00 Sodium Chloride (NS) 1,000 ml @ 40 mls/hr Q24H IV Last administered on 16:38; Admin Dose 40 MLS/HR; Start 02/23/17 at 14:30 Metoclopramide HCl (Reglan) 5 mg Q6 IV Last administered on 03/05/17 12:44; Admin Dose 5 MG; Start 02/23/17 at 18:00 Apixaban 2.5 mg 2.5 mg BID GTB Last administered on 03/05/17 09:50; Admin Dose 2.5 MG; Start 03/03/17 at 21:00 Cefepime HCl/ Sodium Chloride (Maxipime/NS) 50 ml @ 100 mls/hr Q12 IVPB Last administered on 03/05/17 09:54; Admin Dose 100 MLS/HR; Start 03/04/17 at 12:00 Epoetin K[place] (Epogen (Esrd)) 6,000 units [email or web address] [place] ; Start 03/07/17 at 17:00 YULIANA SIMMONS Mar 05, 2017 15:08
--- NOTE | 2017-03-05 15:25 | CONS ---
Date/Time of Note Date/Time of Note DATE: 03/05/17 TIME: 15:22 Assessment/Plan Assessment/Plan Chief Complaint/Hosp Course - urine culture growing MDR kelb pneumoniae carbapenemase and psdeudomonas - funguria, recurrent - s/p recurrent sepsis due to pneumonia - treated with cefepime, tobramycin, and caspofungin - s/p recurrent pneumonia due to pseudomonas - s/p sepsis due to possible tracheobronchitis/pneumonia - thrush, refractory to nystatin - recurrent cardiopulmonary arrest on 12/09/2016 and on 01/08/2017 - hypoxic respiratory failure, intubated for the 2nd time on 12/12/2016; extubated 12/18/2016; re-intubated for the 3rd time 01/08/2017, s/p tracheostomy 06/2017 - bleeding from trach site - resolved - acute on chronic anemia due to acute blood loss, requiring blood transfusion - 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 Blood cultures from HD catheter on 12/13/2016 are negative to date. 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 MRI on 12/06/2016 and bone scan on showed early OM of the distal phalanx of the left great toe and left fourth proximal phalanx. superficial swab grew inna only. At present, no e/o persistent infection - recurrent pleural effusion - s/p right pleural effusion s/p thoracentesis with .9L removed on 12/16/2016; ( Note: there is no pleural fluid cx since orders were placed after Right thoracentesis, and Left thoracentesis was not performed on 12/17/16 d/t insufficient fluid) - ARANZA on CKD that progressed to ESRD and started on HD from 12/09/2016 - oliguria - improved - A fib -> PAF - small nonreversible perfusion abnormality in the inferoapical and inferior carver; EF 36% per Lexiscan 12/24/2016 - severe , EF 40-45% per TTE 12/17/16 - DM - Hgb A1c 8.7% - HTN associated with DM - acute encephalopathy with anoxic brain injury - unstageable decubitus ulcer of coccyx, no evidence of infection - dysphagia s/p G-tube placement 02/08/2017 NOTE: Pt completed 6 weeks (12/03/2016-01/15/2017) of antibiotics to treat early OM of the distal phalanx of the left great toe and left fourth proximal phalanx ; s/p pip/tazo 12/03/16-01/08/17; linezolid 01/08/17-01/20/17; caspofungin 01/12/17-01/21/17 and 02/04/17-02/17/17; tobramycin 02/04/2017- 02/15/17 for pseudomonas; cefepime 02/02/17-02/18/17 recommendations: - pending results: final repeat urine culture (from straight cath), blood cultures (negative to date), resp culture (in process) - add colistin for MDR kelb UTI; will ask micro in AM to check sensitivity to colistin, avycaz - continue empiric IV cefepime for pseudomonas UTI - wound care of the coccyx and upper back - continue nystatin for thrush Management d/w ALINA Schmitt and Dr. Wilson Problems: Consultation Date/Type/Reason Admit Date/Time Dec 02, 2016 at 21:01 Initial Consult Date 12/03/16 Type of Consultation: Infectious Disease Referring Provider: VIET PARKER MD 24 HR Interval Summary Free Text/Dictation Pt with mild leukocytosis and low grade temp with urine culture growing 2 organisms per d/w nursing staff. Debridement still pending. Exam/Review of Systems Vital Signs Vitals Vital Signs Date Time Temp Pulse Resp B/P Pulse Ox O2 Delivery O2 Flow Rate FiO2 03/05/17 12:40 86 03/05/17 11:24 20 99 30 03/05/17 10:55 98.2 130/68 Intake and Output 03/04/17 03/04/17 03/05/17 15:00 23:00 07:00 Intake Total 500 ml 1210 ml 1170 ml Output Total 3000 ml 650 ml 500 ml Balance -2500 ml 560 ml 670 ml Exam Constitutional: frail, chronically debilitated, non-communicative, well developed Head: atraumatic, normocephalic Eyes: nl conjunctiva, nl lids Neck: other (tracheostomy intact) Respiratory: essentially clear anteriorly Cardiovascular: nl pulses, regular rate and rhythm Gastrointestinal: non-tender, soft, G-tube with tube feeds intact Genitourinary - Male: nl penis, nl scrotum, other (Condom catheter in place with cloudy yellow urine) Musculoskeletal: nl extremities to inspection Extremities: No edema Neurological: lethargic/asleep Skin: nl turgor, other (wounds: see nurse note and photos in chart for details ; decub on the coccyx) Results Result Diagram: 03/05/17 0655 03/05/17 0655 Results 24 hrs Laboratory Tests Test 03/04/17 16:36 03/04/17 21:13 03/05/17 00:36 03/05/17 05:41 Bedside Glucose 157 160 157 112 Test 03/05/17 06:55 03/05/17 09:48 03/05/17 13:09 White Blood Count 10.9 #H Red Blood Count 2.97 L Hemoglobin 8.7 L Hematocrit 27.3 L Mean Corpuscular Volume 91.9 Mean Corpuscular Hemoglobin 29.3 Mean Corpuscular Hemoglobin Concent 31.9 L Red Cell Distribution Width 14.2 Platelet Count 170 Mean Platelet Volume 9.9 Neutrophils % 80.2 H Lymphocytes % 8.2 L Monocytes % 9.8 Eosinophils % 0.6 Basophils % 0.2 Nucleated Red Blood Cells % 0.0 Neutrophils # 8.7 H Lymphocytes # 0.9 Monocytes # 1.1 H Eosinophils # 0.1 Basophils # 0.0 Nucleated Red Blood Cells # 0.0 Sodium Level 143 Potassium Level 4.1 Chloride Level 96 L Carbon Dioxide Level 32 H Anion Gap 19 H Blood Urea Nitrogen 36 H Creatinine 0.61 Glucose Level 108 Calcium Level 8.2 L Bedside Glucose 112 139 Medications Medications Current Medications Ondansetron HCl (Zofran Inj) 4 mg Q6H PRN IV NAUSEA AND/OR VOMITING Last administered on 02/23/17t 12:49; Admin Dose 4 MG; Start 12/02/16 at 22:30 Miscellaneous Information 1 ea NOTE XX ; Start 12/02/16 at 23:00 Glucose (Glutose) 15 gm Q15M PRN PO DECREASED GLUCOSE; Start 12/02/16 at 23:00 Glucose (Glutose) 22.5 gm Q15M PRN PO DECREASED GLUCOSE; Start 12/02/16 at 23: 00 Dextrose (D50w Syringe) 25 ml Q15M PRN IV DECREASED GLUCOSE Last administered on 02/24/17 05:56; Admin Dose 25 ML; Start 12/02/16 at 23:00 Dextrose (D50w Syringe) 50 ml Q15M PRN IV DECREASED GLUCOSE Last administered on 01/23/17 04:58; Admin Dose 50 ML; Start 12/02/16 at 23:00 Glucagon (Glucagen) 1 mg Q15M PRN IM DECREASED GLUCOSE; Start 12/02/16 at 23:00 Glucose (Glutose) 15 gm Q15M PRN BUCCAL DECREASED GLUCOSE; Start 12/02/16 at 23 :00 Acetaminophen (Tylenol Supp) 650 mg Q6H PRN [place] ELEVATED TEMPERATURE Last administered on 01/13/17 20:32; Admin Dose 650 MG; Start 12/09/16 at 17:00 Hydralazine HCl (Apresoline) 10 mg Q6H PRN IV SBP>150mm hg Last administered on 12/19/16 08:50; Admin Dose 10 MG; Start 12/11/16 at 10:30 Morphine Sulfate (morphine) 2 mg Q2H PRN IV PAIN LEVEL 4-7; Start 12/13/16 at 10 :00 Collagenase (Santyl) 1 applic DAILY TOP Last administered on 03/05/17 09:51; Admin Dose 1 APPLIC; Start 01/04/17 at 09:00 Metoprolol Tartrate (Lopressor) 5 mg Q4 PRN IV FOR H.R>110; Start 01/12/17 at 17:30 Acetaminophen (Tylenol Liquid) 650 mg Q6H PRN NGT PAIN AND OR ELEVATED TEMP Last administered on 03/04/17 01:06; Admin Dose 650 MG; Start 01/13/17 at 23:30 Acetaminophen/ Hydrocodone Bitart ([place] (5/325)) 1 tab Q6H PRN NGT PAIN LEVEL 4-7; Start 01/13/17 at 23:30 Levetiracetam (Keppra Liquid) 1,000 mg DAILY NGT Last administered on 09:49; Admin Dose 1,000 MG; Start 01/14/17 at 09:00 Meclizine HCl (Antivert) 25 mg TID PRN NGT dizziness; Start 01/13/17 at 20:00 Zolpidem Tartrate (Ambien) 5 mg HS PRN NGT INSOMNIA; Start 01/13/17 at 20:00 Metoprolol Tartrate (Lopressor) 12.5 mg BID NGT Last administered on 02/24/17 10:54; Admin Dose 12.5 MG; Start 01/24/17 at 21:00; Status Future Hold Nystatin (Nystatin Susp) 5 ml Q6 PO Last administered on 03/05/17 12:44; Admin Dose 5 ML; Start 01/31/17 at 12:00 Lansoprazole (Prevacid) 30 mg DAILY@06 GTB Last administered on 03/05/17 05:43 ; Admin Dose 30 MG; Start 02/09/17 at 06:00 Multivitamins (Multivitamin) 30 ml DAILY GTB Last administered on 03/05/17 09: 49; Admin Dose 30 ML; Start 02/14/17 at 16:30 Docusate Sodium (Colace Liquid Cup) 100 mg BID GTB Last administered on 09:49; Admin Dose 100 MG; Start 02/14/17 at 21:00 Amiodarone HCl (Cordarone) 200 mg DAILY GTB Last administered on 03/05/17 09: 50; Admin Dose 200 MG; Start 02/19/17 at 09:00 Ascorbic Acid (Vitamin C) 500 mg DAILY GTB Last administered on 03/05/17 09:50 ; Admin Dose 500 MG; Start 02/22/17 at 09:00 Insulin Glargine (Lantus) 56 unit DAILY@20 SC Last administered on 03/04/17 21 :17; Admin Dose 56 UNIT; Start 02/22/17 at 20:00 Insulin Aspart NOVOLOG *MODERATE* ALGORI... Q4 SC Last administered on 00:42; Admin Dose 2 UNIT; Start 02/23/17 at 05:00 Sodium Chloride (NS) 1,000 ml @ 40 mls/hr Q24H IV Last administered on 16:38; Admin Dose 40 MLS/HR; Start 02/23/17 at 14:30 Metoclopramide HCl (Reglan) 5 mg Q6 IV Last administered on 03/05/17 12:44; Admin Dose 5 MG; Start 02/23/17 at 18:00 Apixaban 2.5 mg 2.5 mg BID GTB Last administered on 03/05/17 09:50; Admin Dose 2.5 MG; Start 03/03/17 at 21:00 Cefepime HCl/ Sodium Chloride (Maxipime/NS) 50 ml @ 100 mls/hr Q12 IVPB Last administered on 03/05/17 09:54; Admin Dose 100 MLS/HR; Start 03/04/17 at 12:00 Epoetin Kyler (Epogen (Esrd)) 6,000 units MoWeFr@17 SC ; Start 03/07/17 at 17:00 YUMIKO ALATORRE NP Mar 05, 2017 15:25
--- NOTE | 2017-03-05 17:33 | CONS ---
Date/Time of Note Date/Time of Note DATE: 03/05/17 TIME: 17:32 Assessment/Plan Assessment/Plan Additional Assessment/Plan Sepsis PAF in NSR CHF Severe Aortic Stenosis Respiratory failure s/p extubation Osteomyelitis Cellulitis left foot Diabetic foot Diabetes Tobacco abuse Hemodynamically stable Continue Vent support Avoid Diuretics Avoid Volume Overload Continue Amiodarone Continue Eliquis Continue Insulin Continue antibiotics HD as scheduled Consultation Date/Type/Reason Admit Date/Time Dec 02, 2016 at 21:01 Constitutional: requiring IVF, requiring O2 Eyes: no complaints ENT: no complaints Respiratory: no complaints Cardiovascular: no complaints Gastrointestinal: no complaints Genitourinary: no complaints Musculoskeletal: bone/joint pain Skin: other Neurologic: no complaints Endocrine: no complaints Lymphatic: no complaints Psychological: confusion Immunologic: no complaints Social History Smoking Status: Former smoker Exam/Review of Systems Vital Signs Vitals Vital Signs Date Time Temp Pulse Resp B/P Pulse Ox O2 Delivery O2 Flow Rate FiO2 03/05/17 16:42 85 03/05/17 15:40 98.5 18 123/56 97 03/05/17 11:24 30 Intake and Output 03/04/17 03/04/17 03/05/17 15:00 23:00 07:00 Intake Total 500 ml 1210 ml 1170 ml Output Total 3000 ml 650 ml 500 ml Balance -2500 ml 560 ml 670 ml Exam Constitutional: non-verbal Neck: other (Trach on Vent) Respiratory: other (mechanical breath sounds heard bilaterally) Cardiovascular: regular rate and rhythm Gastrointestinal: nl liver, spleen, non-tender, soft Results Result Diagram: 03/05/17 0655 03/05/17 0655 Results 24 hrs Laboratory Tests Test 03/04/17 21:13 03/05/17 00:36 03/05/17 05:41 03/05/17 06:55 Bedside Glucose 160 157 112 White Blood Count 10.9 #H Red Blood Count 2.97 L Hemoglobin 8.7 L Hematocrit 27.3 L Mean Corpuscular Volume 91.9 Mean Corpuscular Hemoglobin 29.3 Mean Corpuscular Hemoglobin Concent 31.9 L Red Cell Distribution Width 14.2 Platelet Count 170 Mean Platelet Volume 9.9 Neutrophils % 80.2 H Lymphocytes % 8.2 L Monocytes % 9.8 Eosinophils % 0.6 Basophils % 0.2 Nucleated Red Blood Cells % 0.0 Neutrophils # 8.7 H Lymphocytes # 0.9 Monocytes # 1.1 H Eosinophils # 0.1 Basophils # 0.0 Nucleated Red Blood Cells # 0.0 Sodium Level 143 Potassium Level 4.1 Chloride Level 96 L Carbon Dioxide Level 32 H Anion Gap 19 H Blood Urea Nitrogen 36 H Creatinine 0.61 Glucose Level 108 Calcium Level 8.2 L Test 03/05/17 09:48 03/05/17 13:09 Bedside Glucose 112 139 Medications Medications Current Medications Ondansetron HCl (Zofran Inj) 4 mg Q6H PRN IV NAUSEA AND/OR VOMITING Last administered on 02/23/17 12:49; Admin Dose 4 MG; Start 12/02/16 at 22:30 Miscellaneous Information 1 ea NOTE XX ; Start 12/02/16 at 23:00 Glucose (Glutose) 15 gm Q15M PRN PO DECREASED GLUCOSE; Start 12/02/16 at 23:00 Glucose (Glutose) 22.5 gm Q15M PRN PO DECREASED GLUCOSE; Start 12/02/16 at 23: 00 Dextrose (D50w Syringe) 25 ml Q15M PRN IV DECREASED GLUCOSE Last administered on 02/24/17 05:56; Admin Dose 25 ML; Start 12/02/16 at 23:00 Dextrose (D50w Syringe) 50 ml Q15M PRN IV DECREASED GLUCOSE Last administered on 01/23/17 04:58; Admin Dose 50 ML; Start 12/02/16 at 23:00 Glucagon (Glucagen) 1 mg Q15M PRN IM DECREASED GLUCOSE; Start 12/02/16 at 23:00 Glucose (Glutose) 15 gm Q15M PRN BUCCAL DECREASED GLUCOSE; Start 12/02/16 at 23 :00 Acetaminophen (Tylenol Supp) 650 mg Q6H PRN [place] ELEVATED TEMPERATURE Last administered on 01/13/17 20:32; Admin Dose 650 MG; Start 12/09/16 at 17:00 Hydralazine HCl (Apresoline) 10 mg Q6H PRN IV SBP>150mm hg Last administered on 12/19/16 08:50; Admin Dose 10 MG; Start 12/11/16 at 10:30 Morphine Sulfate (morphine) 2 mg Q2H PRN IV PAIN LEVEL 4-7; Start 12/13/16 at 10 :00 Collagenase (Santyl) 1 applic DAILY TOP Last administered on 03/05/17 09:51; Admin Dose 1 APPLIC; Start 01/04/17 at 09:00 Metoprolol Tartrate (Lopressor) 5 mg Q4 PRN IV FOR H.R>110; Start 01/12/17 at 17:30 Acetaminophen (Tylenol Liquid) 650 mg Q6H PRN NGT PAIN AND OR ELEVATED TEMP Last administered on 03/04/17 01:06; Admin Dose 650 MG; Start 01/13/17 at 23:30 Acetaminophen/ Hydrocodone Bitart ([place] (5/325)) 1 tab Q6H PRN NGT PAIN LEVEL 4-7; Start 01/13/17 at 23:30 Levetiracetam (Keppra Liquid) 1,000 mg DAILY NGT Last administered on 09:49; Admin Dose 1,000 MG; Start 01/14/17 at 09:00 Meclizine HCl (Antivert) 25 mg TID PRN NGT dizziness; Start 01/13/17 at 20:00 Zolpidem Tartrate (Ambien) 5 mg HS PRN NGT INSOMNIA; Start 01/13/17 at 20:00 Metoprolol Tartrate (Lopressor) 12.5 mg BID NGT Last administered on 02/24/17 10:54; Admin Dose 12.5 MG; Start 01/24/17 at 21:00; Status Future Hold Nystatin (Nystatin Susp) 5 ml Q6 PO Last administered on 03/05/17 12:44; Admin Dose 5 ML; Start 01/31/17 at 12:00 Lansoprazole (Prevacid) 30 mg DAILY@06 GTB Last administered on 03/05/17 05:43 ; Admin Dose 30 MG; Start 02/09/17 at 06:00 Multivitamins (Multivitamin) 30 ml DAILY GTB Last administered on 03/05/17 09: 49; Admin Dose 30 ML; Start 02/14/17 at 16:30 Docusate Sodium (Colace Liquid Cup) 100 mg BID GTB Last administered on 09:49; Admin Dose 100 MG; Start 02/14/17 at 21:00 Amiodarone HCl (Cordarone) 200 mg DAILY GTB Last administered on 03/05/17 09: 50; Admin Dose 200 MG; Start 02/19/17 at 09:00 Ascorbic Acid (Vitamin C) 500 mg DAILY GTB Last administered on 03/05/17 09:50 ; Admin Dose 500 MG; Start 02/22/17 at 09:00 Insulin Glargine (Lantus) 56 unit DAILY@20 SC Last administered on 03/04/17 21 :17; Admin Dose 56 UNIT; Start 02/22/17 at 20:00 Insulin Aspart NOVOLOG *MODERATE* ALGORI... Q4 SC Last administered on 00:42; Admin Dose 2 UNIT; Start 02/23/17 at 05:00 Sodium Chloride (NS) 1,000 ml @ 40 mls/hr Q24H IV Last administered on 14:30; Admin Dose 40 MLS/HR; Start 02/23/17 at 14:30 Metoclopramide HCl (Reglan) 5 mg Q6 IV Last administered on 03/05/17 12:44; Admin Dose 5 MG; Start 02/23/17 at 18:00 Apixaban 2.5 mg 2.5 mg BID GTB Last administered on 03/05/17 09:50; Admin Dose 2.5 MG; Start 03/03/17 at 21:00 Cefepime HCl/ Sodium Chloride (Maxipime/NS) 50 ml @ 100 mls/hr Q12 IVPB Last administered on 03/05/17 09:54; Admin Dose 100 MLS/HR; Start 03/04/17 at 12:00 Epoetin Kyler (Epogen (Esrd)) 6,000 units MoWeFr@17 SC ; Start 03/07/17 at 17:00 VIRI ROY M.D. Mar 05, 2017 17:33
--- NOTE | 2017-03-05 19:54 | PN ---
Date/Time of Note Date/Time of Note DATE: 03/05/17 TIME: 19:53 Assessment/Plan Lines/Catheters IV Catheter Type (from [facility]): Peripheral IV [place] in Place (from Nrs): No (condom ) Assessment/Plan Chief Complaint/Hosp Course 1. Multiple wounds with slough and debris; sacrococcygeal unstageable -debridement -specialty mattress -frequent turning and offloading -optimize nutrition -vitamin C/ short term zinc 2. Sepsis: multifactorial: multiple wounds +pneumonia + fungemia+ other; wbc normalized -abx per sensitivity -supportive 3. Respiratory failure s/p tracheostomy: 2/2 pna + pl effusions; s/p arrests x2 4. G-tube placement: tolerating tf 5. Thrush: on nystatin 6. ESRD: on dialysis - per nephrology 7. Paroxysmal atrial fibrillation. Eliquis 8. Diabetes: on lantus and sliding scale -blood sugar optimization 9. Diabetic foot ulcer with osteomyelitis of the distal phalanx of the great left toe -podiatry consult -diabetes management 10. Encephalopathy +/- CVA: Acute to subacute right occipital lobe ischemic infarct per CT; awake, responsive -supportive 11. Anemia: likely chronic disease,doubt acute bleed; h/h stable -monitor -transfuse as needed Thank you, Problems: Subjective 24 Hr Interval Summary Leukocytosis. Awake and responsive. Comfortable on vent. Tolerating feedings. No c/o pain, discomfort, fevers, chills, n/v/d, morales, sz, sob, cough. Exam/Review of Systems Vital Signs Vitals Vital Signs Date Time Temp Pulse Resp B/P Pulse Ox O2 Delivery O2 Flow Rate FiO2 03/05/17 17:46 80 20 100 30 03/05/17 15:40 98.5 123/56 Intake and Output 03/04/17 03/04/17 03/05/17 15:00 23:00 07:00 Intake Total 500 ml 1210 ml 1170 ml Output Total 3000 ml 650 ml 500 ml Balance -2500 ml 560 ml 670 ml Exam Free Text/Dictation Constitutional: alert, non-verbal, No distress Psych: other (flat affect) Head: atraumatic, normocephalic Eyes: PERRL ENMT: No mucosa pink and moist (dry) Neck: other (tracheostomy, no drainage peristoma), supple Respiratory: crackles/rales, diminished breath sounds Cardiovascular: regular rate and rhythm Gastrointestinal: non-tender, other (gtube), soft Musculoskeletal: muscle weakness Extremities: edema (BUE +2), normal pulses Neurological: other (nonverbal), No nl speech, No nl strength Skin: other (multiple wounds: sacral unstageable with necrotic tissue and slough, periwound erythema; see nurses notes and pictures) Results Result Diagram: 03/05/17 0655 03/05/17 0655 IRINEO SHORT MD Mar 05, 2017 19:54
[2017-03-05] MEDS: INSULIN GLARGINE [LANtus] 3 ML PEN SC SCH (21:01)
[2017-03-05] MEDS: ACETAMINOPHEN 650MG/20.3ML CUP NGT PRN (21:05)
[2017-03-05] MEDS: COLISTIMETHATE 75 MG in SOD CHLORIDE 0.9% 100 ML IVPB SCH (21:11)
[2017-03-06] VITALS (24 sets, daily range): BP systolic 111–121; BP diastolic 56–78; PULSE 78–91; RESP 16–24
[2017-03-06] MEDS: METOCLOPRAMIDE 10 MG INJ IV SCH ×4 (00:14→17:07)
[2017-03-06] MEDS: NYSTATIN SUSP 5 ML CUP PO SCH ×4 (00:14→17:07)
[2017-03-06] MEDS: INSULIN ASPART [NOVOLOG] 3 ML PEN SC SCH ×6 (00:49→21:18)
[2017-03-06] MEDS: ALBUTEROL 18 GM INHALER INH SCH ×4 (01:40→20:36)
[2017-03-06] MEDS: LANSOPRAZOLE 30 MG CAP GTB SCH (05:45)
[2017-03-06 07:21] LABS: BASOPHILS % 0.2 % (0.0-2.0); EOSINOPHILS # 0.1 10^3/ul (0.0-0.5); EOSINOPHILS % 0.6 % (0.0-7.0); HEMATOCRIT 28.4 % (42.0-52.0); HEMOGLOBIN 8.8 g/dl (14.0-18.0); LYMPHOCYTES # 0.9 10^3/ul (0.8-2.9); LYMPHOCYTES % 8.3 % (15.0-51.0); MEAN CORPUSCULAR HEMOGLOBIN 28.4 pg (29.0-33.0); MEAN CORPUSCULAR VOLUME 91.6 fl (82.0-101.0); MONOCYTES % 8.9 % (0.0-11.0); NEUTROPHIL # 9.1 10^3/ul (1.6-7.5); NEUTROPHILS % 80.8 % (39.0-77.0); PLATELET COUNT 175 10^3/UL (140-415); RED CELL DISTRIBUTION WIDTH 14.4 % (11.5-14.5); WHITE BLOOD COUNT 11.3 10^3/ul (4.8-10.8)
[2017-03-06 08:02] LABS: CALCIUM 8.3 mg/dl (8.4-10.2); CREATININE 0.68 mg/dl (0.61-1.24); POTASSIUM 4.4 mmol/L (3.5-5.1)
[2017-03-06] MEDS: APIXABAN 5 MG TABLET GTB SCH ×2 (09:00→21:32)
[2017-03-06] MEDS: MULTIVITAMINS 30 ML CUP GTB SCH (09:38)
[2017-03-06] MEDS: LEVETIRACETAM (100 MG/ML) 5ML CUP NGT SCH (09:38)
[2017-03-06] MEDS: AMIODARONE 200 MG TAB GTB SCH (09:38)
[2017-03-06] MEDS: ASCORBIC ACID 500 MG TAB GTB SCH (09:38)
[2017-03-06] MEDS: CEFEPIME HCL 0.5 GM in SOD CHLORIDE 0.9% 50 ML IVPB SCH ×2 (09:40→21:11)
[2017-03-06] MEDS: COLISTIMETHATE 75 MG in SOD CHLORIDE 0.9% 100 ML IVPB SCH (09:40)
[2017-03-06] MEDS: DOCUSATE SODIUM 10 MG/ML (10ML CUP) GTB SCH ×2 (09:40→21:32)
[2017-03-06] MEDS: COLLAGENASE 30 GM TUBE TOP SCH (09:41)
--- NOTE | 2017-03-06 11:12 | CONS ---
Date/Time of Note Date/Time of Note DATE: 03/06/17 TIME: 11:11 Assessment/Plan Assessment/Plan Additional Assessment/Plan -S/p cardiopulmonary arrest on 12/09/2016 and on 01/08/2017 - 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 Blood cultures from HD catheter on 12/13/2016 are negative to date. 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 MRI on 12/06/2016 and bone scan on showed early OM of the distal phalanx of the left great toe and left fourth proximal phalanx. superficial swab grew inna only - s/p right pleural effusion s/p thoracentesis with .9L removed on 12/16/2016 - severe , EF 40-45% per TTE 12/17/16 - DM - Hgb A1c 8.7% - HTN associated with DM - sp Tracheostomy site bleeding Plan: will conitnue HD on MWF - HD ordered for tomorrow continue epogen for anemia s/p Tracheostomy, pt will need HD palcement at a unit where they can do a HD for pt with tracheostomy and PEG tube placemen t- cyanide case hardener worked on it pt has severe , very labile BP sometimes with HD will continue to follow up for HD need Consultation Date/Type/Reason Admit Date/Time Dec 02, 2016 at 21:01 Initial Consult Date Type of Consultation: NEPHROLOGY Referring Provider: VIET PARKER MD 24 HR Interval Summary Free Text/Dictation no acute events, plan for HD tomorrow Exam/Review of Systems Vital Signs Vitals Vital Signs Date Time Temp Pulse Resp B/P Pulse Ox O2 Delivery O2 Flow Rate FiO2 03/06/17 11:08 98.9 89 16 118/78 97 03/06/17 07:45 30 Intake and Output 03/05/17 03/05/17 03/06/17 15:00 23:00 07:00 Intake Total 750 ml 600 ml Output Total 800 ml 700 ml Balance -50 ml -100 ml Exam Constitutional: non-verbal Psych: confusion Head: atraumatic, normocephalic+ tracheostomy Respiratory: clear to auscultation, normal air movement Cardiovascular: nl pulses, regular rate and rhythm Gastrointestinal: non-tender, soft Extremities: No edema Neurological: lethargic Skin: rash or lesions (decubitus ulcer is clean, non-purulent, well vascularized tissue) Results Result Diagram: 03/06/17 0648 03/06/17 0648 Results 24 hrs Laboratory Tests Test 03/05/17 13:09 03/05/17 17:40 03/05/17 20:58 03/06/17 00:46 Bedside Glucose 139 146 121 147 Test 03/06/17 05:41 03/06/17 06:48 03/06/17 09:37 Bedside Glucose 132 123 White Blood Count 11.3 H Red Blood Count 3.10 L Hemoglobin 8.8 L Hematocrit 28.4 L Mean Corpuscular Volume 91.6 Mean Corpuscular Hemoglobin 28.4 L Mean Corpuscular Hemoglobin Concent 31.0 L Red Cell Distribution Width 14.4 Platelet Count 175 Mean Platelet Volume 10.0 Neutrophils % 80.8 H Lymphocytes % 8.3 L Monocytes % 8.9 Eosinophils % 0.6 Basophils % 0.2 Nucleated Red Blood Cells % 0.0 Neutrophils # 9.1 H Lymphocytes # 0.9 Monocytes # 1.0 H Eosinophils # 0.1 Basophils # 0.0 Nucleated Red Blood Cells # 0.0 Sodium Level 146 H Potassium Level 4.4 Chloride Level 99 Carbon Dioxide Level 34 H Anion Gap 17 H Blood Urea Nitrogen 44 H Creatinine 0.68 Glucose Level 107 Calcium Level 8.3 L Medications Medications Current Medications Ondansetron HCl (Zofran Inj) 4 mg Q6H PRN IV NAUSEA AND/OR VOMITING Last administered on 02/23/17t 12:49; Admin Dose 4 MG; Start 12/02/16 at 22:30 Miscellaneous Information 1 ea NOTE XX ; Start 12/02/16 at 23:00 Glucose (Glutose) 15 gm Q15M PRN PO DECREASED GLUCOSE; Start 12/02/16 at 23:00 Glucose (Glutose) 22.5 gm Q15M PRN PO DECREASED GLUCOSE; Start 12/02/16 at 23: 00 Dextrose (D50w Syringe) 25 ml Q15M PRN IV DECREASED GLUCOSE Last administered on 02/24/17 05:56; Admin Dose 25 ML; Start 12/02/16 at 23:00 Dextrose (D50w Syringe) 50 ml Q15M PRN IV DECREASED GLUCOSE Last administered on 01/23/17 04:58; Admin Dose 50 ML; Start 12/02/16 at 23:00 Glucagon (Glucagen) 1 mg Q15M PRN IM DECREASED GLUCOSE; Start 12/02/16 at 23:00 Glucose (Glutose) 15 gm Q15M PRN BUCCAL DECREASED GLUCOSE; Start 12/02/16 at 23 :00 Acetaminophen (Tylenol Supp) 650 mg Q6H PRN [place] ELEVATED TEMPERATURE Last administered on 01/13/17 20:32; Admin Dose 650 MG; Start 12/09/16 at 17:00 Hydralazine HCl (Apresoline) 10 mg Q6H PRN IV SBP>150mm hg Last administered on 12/19/16 08:50; Admin Dose 10 MG; Start 12/11/16 at 10:30 Morphine Sulfate (morphine) 2 mg Q2H PRN IV PAIN LEVEL 4-7; Start 12/13/16 at 10 :00 Collagenase (Santyl) 1 applic DAILY TOP Last administered on 03/06/17 09:41; Admin Dose 1 APPLIC; Start 01/04/17 at 09:00 Metoprolol Tartrate (Lopressor) 5 mg Q4 PRN IV FOR H.R>110; Start 01/12/17 at 17:30 Acetaminophen (Tylenol Liquid) 650 mg Q6H PRN NGT PAIN AND OR ELEVATED TEMP Last administered on 03/05/17 21:05; Admin Dose 650 MG; Start 01/13/17 at 23:30 Acetaminophen/ Hydrocodone Bitart ([place] (5/325)) 1 tab Q6H PRN NGT PAIN LEVEL 4-7; Start 01/13/17 at 23:30 Levetiracetam (Keppra Liquid) 1,000 mg DAILY NGT Last administered on 09:38; Admin Dose 1,000 MG; Start 01/14/17 at 09:00 Meclizine HCl (Antivert) 25 mg TID PRN NGT dizziness; Start 01/13/17 at 20:00 Zolpidem Tartrate (Ambien) 5 mg HS PRN NGT INSOMNIA; Start 01/13/17 at 20:00 Metoprolol Tartrate (Lopressor) 12.5 mg BID NGT Last administered on 02/24/17 10:54; Admin Dose 12.5 MG; Start 01/24/17 at 21:00; Status Future Hold Nystatin (Nystatin Susp) 5 ml Q6 PO Last administered on 03/06/17 05:45; Admin Dose 5 ML; Start 01/31/17 at 12:00 Lansoprazole (Prevacid) 30 mg DAILY@06 GTB Last administered on 03/06/17 05:45 ; Admin Dose 30 MG; Start 02/09/17 at 06:00 Multivitamins (Multivitamin) 30 ml DAILY GTB Last administered on 03/06/17 09: 38; Admin Dose 30 ML; Start 02/14/17 at 16:30 Docusate Sodium (Colace Liquid Cup) 100 mg BID GTB Last administered on 09:40; Admin Dose 100 MG; Start 02/14/17 at 21:00 Amiodarone HCl (Cordarone) 200 mg DAILY GTB Last administered on 03/06/17 09: 38; Admin Dose 200 MG; Start 02/19/17 at 09:00 Ascorbic Acid (Vitamin C) 500 mg DAILY GTB Last administered on 03/06/17 09:38 ; Admin Dose 500 MG; Start 02/22/17 at 09:00 Insulin Glargine (Lantus) 56 unit DAILY@20 SC Last administered on 03/05/17 21 :01; Admin Dose 56 UNIT; Start 02/22/17 at 20:00 Insulin Aspart NOVOLOG *MODERATE* ALGORI... Q4 SC Last administered on 00:49; Admin Dose 1 UNIT; Start 02/23/17 at 05:00 Sodium Chloride (NS) 1,000 ml @ 40 mls/hr Q24H IV Last administered on 14:30; Admin Dose 40 MLS/HR; Start 02/23/17 at 14:30 Metoclopramide HCl (Reglan) 5 mg Q6 IV Last administered on 03/06/17 05:45; Admin Dose 5 MG; Start 02/23/17 at 18:00 Apixaban 2.5 mg 2.5 mg BID GTB Last administered on 03/05/17 21:05; Admin Dose 2.5 MG; Start 03/03/17 at 21:00 Cefepime HCl/ Sodium Chloride (Maxipime/NS) 50 ml @ 100 mls/hr Q12 IVPB Last administered on 03/06/17 09:40; Admin Dose 100 MLS/HR; Start 03/04/17 at 12:00 Epoetin Kyler 6000 units 6,000 units MoWeFr@17 SC ; Start 03/07/17 at 17:00 Colistimethate Sodium/Sodium Chloride (Coly-Mycin/NS) 100 ml @ 200 mls/hr Q12 IVPB Last administered on 03/06/17 09:40; Admin Dose 200 MLS/HR; Start at 21:00 TASHIA MCGARRY MD Mar 06, 2017 11:12
--- NOTE | 2017-03-06 12:02 | CONS ---
Date/Time of Note Date/Time of Note DATE: 03/06/17 TIME: 12:01 Assessment/Plan Assessment/Plan Chief Complaint/Hosp Course - urine culture growing MDR kelb pneumoniae carbapenemase and psdeudomonas - funguria, recurrent - s/p recurrent sepsis due to pneumonia - treated with cefepime, tobramycin, and caspofungin - s/p recurrent pneumonia due to pseudomonas - s/p sepsis due to possible tracheobronchitis/pneumonia - thrush, refractory to nystatin - recurrent cardiopulmonary arrest on 12/09/2016 and on 01/08/2017 - hypoxic respiratory failure, intubated for the 2nd time on 12/12/2016; extubated 12/18/2016; re-intubated for the 3rd time 01/08/2017, s/p tracheostomy 06/2017 - bleeding from trach site - resolved - acute on chronic anemia due to acute blood loss, requiring blood transfusion - 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 Blood cultures from HD catheter on 12/13/2016 are negative to date. 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 MRI on 12/06/2016 and bone scan on showed early OM of the distal phalanx of the left great toe and left fourth proximal phalanx. superficial swab grew inna only. At present, no e/o persistent infection - recurrent pleural effusion - s/p right pleural effusion s/p thoracentesis with .9L removed on 12/16/2016; ( Note: there is no pleural fluid cx since orders were placed after Right thoracentesis, and Left thoracentesis was not performed on 12/17/16 d/t insufficient fluid) - ARANZA on CKD that progressed to ESRD and started on HD from 12/09/2016 - oliguria - improved - A fib -> PAF - small nonreversible perfusion abnormality in the inferoapical and inferior carver; EF 36% per Lexiscan 12/24/2016 - severe , EF 40-45% per TTE 12/17/16 - DM - Hgb A1c 8.7% - HTN associated with DM - acute encephalopathy with anoxic brain injury - unstageable decubitus ulcer of coccyx, no evidence of infection - dysphagia s/p G-tube placement 02/08/2017 NOTE: Pt completed 6 weeks (12/03/2016-01/15/2017) of antibiotics to treat early OM of the distal phalanx of the left great toe and left fourth proximal phalanx ; s/p pip/tazo 12/03/16-01/08/17; linezolid 01/08/17-01/20/17; caspofungin 01/12/17-01/21/17 and 02/04/17-02/17/17; tobramycin 02/04/2017- 02/15/17 for pseudomonas; cefepime 02/02/17-02/18/17 recommendations: - cont. colistin for MDR kelb UTI; will ask micro in AM to check sensitivity to colistin, avycaz and others - continue empiric IV cefepime for pseudomonas UTI - wound care of the coccyx and upper back - continue nystatin for thrush Problems: Consultation Date/Type/Reason Admit Date/Time Dec 02, 2016 at 21:01 Type of Consultation: id Referring Provider: VIET PARKER MD Exam/Review of Systems Vital Signs Vitals Vital Signs Date Time Temp Pulse Resp B/P Pulse Ox O2 Delivery O2 Flow Rate FiO2 03/06/17 11:08 98.9 89 16 118/78 97 03/06/17 07:45 30 Intake and Output 03/05/17 03/05/17 03/06/17 15:00 23:00 07:00 Intake Total 750 ml 600 ml Output Total 800 ml 700 ml Balance -50 ml -100 ml Exam Psych: nl mood/affect, no complaints Head: atraumatic, normocephalic Eyes: EOMI, PERRL, nl conjunctiva, nl lids, nl sclera ENMT: nl external ears & nose, nl lips & teeth, nl nasal mucosa & septum Respiratory: clear to auscultation, normal air movement Cardiovascular: nl pulses, regular rate and rhythm Results Result Diagram: 03/06/17 0648 03/06/17 0648 Results 24 hrs Laboratory Tests Test 03/05/17 13:09 03/05/17 17:40 03/05/17 20:58 03/06/17 00:46 Bedside Glucose 139 146 121 147 Test 03/06/17 05:41 03/06/17 06:48 03/06/17 09:37 Bedside Glucose 132 123 White Blood Count 11.3 H Red Blood Count 3.10 L Hemoglobin 8.8 L Hematocrit 28.4 L Mean Corpuscular Volume 91.6 Mean Corpuscular Hemoglobin 28.4 L Mean Corpuscular Hemoglobin Concent 31.0 L Red Cell Distribution Width 14.4 Platelet Count 175 Mean Platelet Volume 10.0 Neutrophils % 80.8 H Lymphocytes % 8.3 L Monocytes % 8.9 Eosinophils % 0.6 Basophils % 0.2 Nucleated Red Blood Cells % 0.0 Neutrophils # 9.1 H Lymphocytes # 0.9 Monocytes # 1.0 H Eosinophils # 0.1 Basophils # 0.0 Nucleated Red Blood Cells # 0.0 Sodium Level 146 H Potassium Level 4.4 Chloride Level 99 Carbon Dioxide Level 34 H Anion Gap 17 H Blood Urea Nitrogen 44 H Creatinine 0.68 Glucose Level 107 Calcium Level 8.3 L Medications Medications Current Medications Ondansetron HCl (Zofran Inj) 4 mg Q6H PRN IV NAUSEA AND/OR VOMITING Last administered on 02/23/17 12:49; Admin Dose 4 MG; Start 12/02/16 at 22:30 Miscellaneous Information 1 ea NOTE XX ; Start 12/02/16 at 23:00 Glucose (Glutose) 15 gm Q15M PRN PO DECREASED GLUCOSE; Start 12/02/16 at 23:00 Glucose (Glutose) 22.5 gm Q15M PRN PO DECREASED GLUCOSE; Start 12/02/16 at 23: 00 Dextrose (D50w Syringe) 25 ml Q15M PRN IV DECREASED GLUCOSE Last administered on 02/24/17 05:56; Admin Dose 25 ML; Start 12/02/16 at 23:00 Dextrose (D50w Syringe) 50 ml Q15M PRN IV DECREASED GLUCOSE Last administered on 01/23/17 04:58; Admin Dose 50 ML; Start 12/02/16 at 23:00 Glucagon (Glucagen) 1 mg Q15M PRN IM DECREASED GLUCOSE; Start 12/02/16 at 23:00 Glucose (Glutose) 15 gm Q15M PRN BUCCAL DECREASED GLUCOSE; Start 12/02/16 at 23 :00 Acetaminophen (Tylenol Supp) 650 mg Q6H PRN [place] ELEVATED TEMPERATURE Last administered on 01/13/17 20:32; Admin Dose 650 MG; Start 12/09/16 at 17:00 Hydralazine HCl (Apresoline) 10 mg Q6H PRN IV SBP>150mm hg Last administered on 12/19/16 08:50; Admin Dose 10 MG; Start 12/11/16 at 10:30 Morphine Sulfate (morphine) 2 mg Q2H PRN IV PAIN LEVEL 4-7; Start 12/13/16 at 10 :00 Collagenase (Santyl) 1 applic DAILY TOP Last administered on 03/06/17 09:41; Admin Dose 1 APPLIC; Start 01/04/17 at 09:00 Metoprolol Tartrate (Lopressor) 5 mg Q4 PRN IV FOR H.R>110; Start 01/12/17 at 17:30 Acetaminophen (Tylenol Liquid) 650 mg Q6H PRN NGT PAIN AND OR ELEVATED TEMP Last administered on 03/05/17 21:05; Admin Dose 650 MG; Start 01/13/17 at 23:30 Acetaminophen/ Hydrocodone Bitart ([place] (5/325)) 1 tab Q6H PRN NGT PAIN LEVEL 4-7; Start 01/13/17 at 23:30 Levetiracetam (Keppra Liquid) 1,000 mg DAILY NGT Last administered on 09:38; Admin Dose 1,000 MG; Start 01/14/17 at 09:00 Meclizine HCl (Antivert) 25 mg TID PRN NGT dizziness; Start 01/13/17 at 20:00 Zolpidem Tartrate (Ambien) 5 mg HS PRN NGT INSOMNIA; Start 01/13/17 at 20:00 Metoprolol Tartrate (Lopressor) 12.5 mg BID NGT Last administered on 02/24/17 10:54; Admin Dose 12.5 MG; Start 01/24/17 at 21:00; Status Future Hold Nystatin (Nystatin Susp) 5 ml Q6 PO Last administered on 03/06/17 05:45; Admin Dose 5 ML; Start 01/31/17 at 12:00 Lansoprazole (Prevacid) 30 mg DAILY@06 GTB Last administered on 03/06/17 05:45 ; Admin Dose 30 MG; Start 02/09/17 at 06:00 Multivitamins (Multivitamin) 30 ml DAILY GTB Last administered on 03/06/17 09: 38; Admin Dose 30 ML; Start 02/14/17 at 16:30 Docusate Sodium (Colace Liquid Cup) 100 mg BID GTB Last administered on 09:40; Admin Dose 100 MG; Start 02/14/17 at 21:00 Amiodarone HCl (Cordarone) 200 mg DAILY GTB Last administered on 03/06/17 09: 38; Admin Dose 200 MG; Start 02/19/17 at 09:00 Ascorbic Acid (Vitamin C) 500 mg DAILY GTB Last administered on 03/06/17 09:38 ; Admin Dose 500 MG; Start 02/22/17 at 09:00 Insulin Glargine (Lantus) 56 unit DAILY@20 SC Last administered on 03/05/17 21 :01; Admin Dose 56 UNIT; Start 02/22/17 at 20:00 Insulin Aspart NOVOLOG *MODERATE* ALGORI... Q4 SC Last administered on 00:49; Admin Dose 1 UNIT; Start 02/23/17 at 05:00 Sodium Chloride (NS) 1,000 ml @ 40 mls/hr Q24H IV Last administered on 14:30; Admin Dose 40 MLS/HR; Start 02/23/17 at 14:30 Metoclopramide HCl (Reglan) 5 mg Q6 IV Last administered on 03/06/17 05:45; Admin Dose 5 MG; Start 02/23/17 at 18:00 Apixaban 2.5 mg 2.5 mg BID GTB Last administered on 03/05/17 21:05; Admin Dose 2.5 MG; Start 03/03/17 at 21:00 Cefepime HCl/ Sodium Chloride (Maxipime/NS) 50 ml @ 100 mls/hr Q12 IVPB Last administered on 03/06/17 09:40; Admin Dose 100 MLS/HR; Start 03/04/17 at 12:00 Epoetin Kyler 6000 units 6,000 units MoWeFr@17 SC ; Start 03/07/17 at 17:00 Colistimethate Sodium/Sodium Chloride (Coly-Mycin/NS) 100 ml @ 200 mls/hr Q12 IVPB Last administered on 03/06/17t 09:40; Admin Dose 200 MLS/HR; Start at 21:00 NIKHIL RAM MD Mar 06, 2017 12:02
[2017-03-06] MEDS: SOD CHLORIDE 0.9% 1,000 ML IV SCH (14:48)
--- NOTE | 2017-03-06 15:12 | CONS ---
Date/Time of Note Date/Time of Note DATE: 03/06/17 TIME: 15:11 Assessment/Plan Assessment/Plan Additional Assessment/Plan Sepsis PAF in NSR CHF Severe Aortic Stenosis Respiratory failure s/p extubation Osteomyelitis Cellulitis left foot Diabetic foot Diabetes Tobacco abuse Anemia Hemodynamically stable Continue Vent support Avoid Diuretics Avoid Volume Overload Continue Amiodarone Continue Eliquis Continue Insulin Continue antibiotics HD as scheduled Consultation Date/Type/Reason Admit Date/Time Dec 02, 2016 at 21:01 Initial Consult Date 12/08/16 Type of Consultation: id Referring Provider: VIET PARKER MD Exam/Review of Systems Vital Signs Vitals Vital Signs Date Time Temp Pulse Resp B/P Pulse Ox O2 Delivery O2 Flow Rate FiO2 03/06/17 14:28 69 16 98 30 03/06/17 11:08 98.9 118/78 Intake and Output 03/05/17 03/05/17 03/06/17 15:00 23:00 07:00 Intake Total 750 ml 600 ml Output Total 800 ml 700 ml Balance -50 ml -100 ml Exam Constitutional: non-verbal Neck: other (Trach on Vent) Respiratory: other (mechanical breath sounds heard bilaterally) Cardiovascular: regular rate and rhythm Gastrointestinal: nl liver, spleen, non-tender, soft Results Result Diagram: 03/06/17 0648 03/06/17 0648 Results 24 hrs Laboratory Tests Test 03/05/17 17:40 03/05/17 20:58 03/06/17 00:46 03/06/17 05:41 Bedside Glucose 146 121 147 132 Test 03/06/17 06:48 03/06/17 09:37 03/06/17 12:25 White Blood Count 11.3 H Red Blood Count 3.10 L Hemoglobin 8.8 L Hematocrit 28.4 L Mean Corpuscular Volume 91.6 Mean Corpuscular Hemoglobin 28.4 L Mean Corpuscular Hemoglobin Concent 31.0 L Red Cell Distribution Width 14.4 Platelet Count 175 Mean Platelet Volume 10.0 Neutrophils % 80.8 H Lymphocytes % 8.3 L Monocytes % 8.9 Eosinophils % 0.6 Basophils % 0.2 Nucleated Red Blood Cells % 0.0 Neutrophils # 9.1 H Lymphocytes # 0.9 Monocytes # 1.0 H Eosinophils # 0.1 Basophils # 0.0 Nucleated Red Blood Cells # 0.0 Sodium Level 146 H Potassium Level 4.4 Chloride Level 99 Carbon Dioxide Level 34 H Anion Gap 17 H Blood Urea Nitrogen 44 H Creatinine 0.68 Glucose Level 107 Calcium Level 8.3 L Bedside Glucose 123 138 Medications Medications Current Medications Ondansetron HCl (Zofran Inj) 4 mg Q6H PRN IV NAUSEA AND/OR VOMITING Last administered on 02/23/17 12:49; Admin Dose 4 MG; Start 12/02/16 at 22:30 Miscellaneous Information 1 ea NOTE XX ; Start 12/02/16 at 23:00 Glucose (Glutose) 15 gm Q15M PRN PO DECREASED GLUCOSE; Start 12/02/16 at 23:00 Glucose (Glutose) 22.5 gm Q15M PRN PO DECREASED GLUCOSE; Start 12/02/16 at 23: 00 Dextrose (D50w Syringe) 25 ml Q15M PRN IV DECREASED GLUCOSE Last administered on 02/24/17 05:56; Admin Dose 25 ML; Start 12/02/16 at 23:00 Dextrose (D50w Syringe) 50 ml Q15M PRN IV DECREASED GLUCOSE Last administered on 01/23/17 04:58; Admin Dose 50 ML; Start 12/02/16 at 23:00 Glucagon (Glucagen) 1 mg Q15M PRN IM DECREASED GLUCOSE; Start 12/02/16 at 23:00 Glucose (Glutose) 15 gm Q15M PRN BUCCAL DECREASED GLUCOSE; Start 12/02/16 at 23 :00 Acetaminophen (Tylenol Supp) 650 mg Q6H PRN [place] ELEVATED TEMPERATURE Last administered on 01/13/17 20:32; Admin Dose 650 MG; Start 12/09/16 at 17:00 Hydralazine HCl (Apresoline) 10 mg Q6H PRN IV SBP>150mm hg Last administered on 12/19/16 08:50; Admin Dose 10 MG; Start 12/11/16 at 10:30 Morphine Sulfate (morphine) 2 mg Q2H PRN IV PAIN LEVEL 4-7; Start 12/13/16 at 10 :00 Collagenase (Santyl) 1 applic DAILY TOP Last administered on 03/06/17 09:41; Admin Dose 1 APPLIC; Start 01/04/17 at 09:00 Metoprolol Tartrate (Lopressor) 5 mg Q4 PRN IV FOR H.R>110; Start 01/12/17 at 17:30 Acetaminophen (Tylenol Liquid) 650 mg Q6H PRN NGT PAIN AND OR ELEVATED TEMP Last administered on 03/05/17 21:05; Admin Dose 650 MG; Start 01/13/17 at 23:30 Acetaminophen/ Hydrocodone Bitart ([place] (5/325)) 1 tab Q6H PRN NGT PAIN LEVEL 4-7; Start 01/13/17 at 23:30 Levetiracetam (Keppra Liquid) 1,000 mg DAILY NGT Last administered on 09:38; Admin Dose 1,000 MG; Start 01/14/17 at 09:00 Meclizine HCl (Antivert) 25 mg TID PRN NGT dizziness; Start 01/13/17 at 20:00 Zolpidem Tartrate (Ambien) 5 mg HS PRN NGT INSOMNIA; Start 01/13/17 at 20:00 Metoprolol Tartrate (Lopressor) 12.5 mg BID NGT Last administered on 02/24/17 10:54; Admin Dose 12.5 MG; Start 01/24/17 at 21:00; Status Future Hold Nystatin (Nystatin Susp) 5 ml Q6 PO Last administered on 03/06/17 12:23; Admin Dose 5 ML; Start 01/31/17 at 12:00 Lansoprazole (Prevacid) 30 mg DAILY@06 GTB Last administered on 03/06/17 05:45 ; Admin Dose 30 MG; Start 02/09/17 at 06:00 Multivitamins (Multivitamin) 30 ml DAILY GTB Last administered on 03/06/17 09: 38; Admin Dose 30 ML; Start 02/14/17 at 16:30 Docusate Sodium (Colace Liquid Cup) 100 mg BID GTB Last administered on 09:40; Admin Dose 100 MG; Start 02/14/17 at 21:00 Amiodarone HCl (Cordarone) 200 mg DAILY GTB Last administered on 03/06/17 09: 38; Admin Dose 200 MG; Start 02/19/17 at 09:00 Ascorbic Acid (Vitamin C) 500 mg DAILY GTB Last administered on 03/06/17 09:38 ; Admin Dose 500 MG; Start 02/22/17 at 09:00 Insulin Glargine (Lantus) 56 unit DAILY@20 SC Last administered on 03/05/17 21 :01; Admin Dose 56 UNIT; Start 02/22/17 at 20:00 Insulin Aspart NOVOLOG *MODERATE* [place]I... Q4 SC Last administered on 00:49; Admin Dose 1 UNIT; Start 02/23/17 at 05:00 Sodium Chloride (NS) 1,000 ml @ 40 mls/hr Q24H IV Last administered on 14:48; Admin Dose 40 MLS/HR; Start 02/23/17 at 14:30 Metoclopramide HCl (Reglan) 5 mg Q6 IV Last administered on 03/06/17 12:23; Admin Dose 5 MG; Start 02/23/17 at 18:00 Apixaban 2.5 mg 2.5 mg BID GTB Last administered on 03/05/17 21:05; Admin Dose 2.5 MG; Start 03/03/17 at 21:00 Cefepime HCl/ Sodium Chloride (Maxipime/NS) 50 ml @ 100 mls/hr Q12 IVPB Last administered on 03/06/17 09:40; Admin Dose 100 MLS/HR; Start 03/04/17 at 12:00 Epoetin Kyler 6000 units 6,000 units MoWeFr@17 SC ; Start 03/07/17 at 17:00 Colistimethate Sodium/Sodium Chloride (Coly-Mycin/NS) 100 ml @ 200 mls/hr Q12 IVPB Last administered on 03/06/17 09:40; Admin Dose 200 MLS/HR; Start at 21:00 VIRI ROY M.D. Mar 06, 2017 15:12
--- NOTE | 2017-03-06 17:56 | PN ---
Date/Time of Note Date/Time of Note DATE: 03/06/17 TIME: 17:50 Assessment/Plan VTE Prophylaxis VTE Prophylaxis Intervention: other Lines/Catheters IV Catheter Type (from Nrs): Peripheral IV Assessment/Plan Assessment/Plan - Recurrent UTI, continue antibiotics per ID. - Sacral decubitus ulcer, DrGurpreet Brown is asked to see patient in surgical consultation. - Possible recurrent sepsis, resolving. Continue antibiotics per ID. Dr Celena pritchard is following infection disease consultation. - Dysphagia. S/p G-tube by Dr. Smith. Continue G-tube feeding, monitor residual. - Anemia of blood loss. Continue to monitor H&H, transfuse as needed. - Status post cardiopulmonary arrest on 12/09/2016 and 01/08/2017. Continue ventilatory support. - Anoxic encephalopathy. Continue Keppra. - Status post tracheostomy on 01/23/2017. Continue tracheostomy care. - End-stage renal disease. Continue hemodialysis per nephrology. - Paroxysmal atrial fibrillation. Continue Eliquis. - Diabetes mellitus type 2. Continue Lantus and NovoLog with sliding scale coverage with Accu-Cheks q. 4 hours. - Diabetic foot ulcer. Continue current wound care. - Osteomyelitis of the distal phalanx of the great left toe. Completed treatment for antibiotics. Continue sequential compression device for deep venous thrombosis prophylaxis and Protonix for peptic ulcer disease prophylaxis. Further recommendations based on clinical course. Plan of care discussed with Dr. Heredia. Subjective 24 Hr Interval Summary Free Text/Dictation Dr Heredia spoke with Dr Brown for possible sacral decub debridement on Tuesday. patient de saturates while being turned to his left side as compared to right side. Dr Pedraza is notified by staff- stat CXR done- fu results. Constitutional: requiring IVF, requiring O2 Exam/Review of Systems Vital Signs Vitals Vital Signs Date Time Temp Pulse Resp B/P Pulse Ox O2 Delivery O2 Flow Rate FiO2 03/06/17 15:52 67 16 99 30 03/06/17 15:24 98.6 121/68 Intake and Output 03/05/17 03/05/17 03/06/17 15:00 23:00 07:00 Intake Total 750 ml 600 ml Output Total 800 ml 700 ml Balance -50 ml -100 ml Exam Constitutional: non-verbal Respiratory: diminished breath sounds Cardiovascular: nl pulses, regular rate and rhythm Gastrointestinal: non-tender, soft Musculoskeletal: other Extremities: normal pulses Neurological: unresponsive Skin: other Results Result Diagram: 03/06/17 0648 03/06/17 0648 Results 24 hrs Laboratory Tests Test 03/05/17 20:58 03/06/17 00:46 03/06/17 05:41 03/06/17 06:48 Bedside Glucose 121 147 132 White Blood Count 11.3 H Red Blood Count 3.10 L Hemoglobin 8.8 L Hematocrit 28.4 L Mean Corpuscular Volume 91.6 Mean Corpuscular Hemoglobin 28.4 L Mean Corpuscular Hemoglobin Concent 31.0 L Red Cell Distribution Width 14.4 Platelet Count 175 Mean Platelet Volume 10.0 Neutrophils % 80.8 H Lymphocytes % 8.3 L Monocytes % 8.9 Eosinophils % 0.6 Basophils % 0.2 Nucleated Red Blood Cells % 0.0 Neutrophils # 9.1 H Lymphocytes # 0.9 Monocytes # 1.0 H Eosinophils # 0.1 Basophils # 0.0 Nucleated Red Blood Cells # 0.0 Sodium Level 146 H Potassium Level 4.4 Chloride Level 99 Carbon Dioxide Level 34 H Anion Gap 17 H Blood Urea Nitrogen 44 H Creatinine 0.68 Glucose Level 107 Calcium Level 8.3 L Test 03/06/17 09:37 03/06/17 12:25 03/06/17 17:15 Bedside Glucose 123 138 152 Medications Medications Current Medications Ondansetron HCl (Zofran Inj) 4 mg Q6H PRN IV NAUSEA AND/OR VOMITING Last administered on 02/23/17 12:49; Admin Dose 4 MG; Start 12/02/16 at 22:30 Miscellaneous Information 1 ea NOTE XX ; Start 12/02/16 at 23:00 Glucose (Glutose) 15 gm Q15M PRN PO DECREASED GLUCOSE; Start 12/02/16 at 23:00 Glucose (Glutose) 22.5 gm Q15M PRN PO DECREASED GLUCOSE; Start 12/02/16 at 23: 00 Dextrose (D50w Syringe) 25 ml Q15M PRN IV DECREASED GLUCOSE Last administered on 02/24/17 05:56; Admin Dose 25 ML; Start 12/02/16 at 23:00 Dextrose (D50w Syringe) 50 ml Q15M PRN IV DECREASED GLUCOSE Last administered on 01/23/17 04:58; Admin Dose 50 ML; Start 12/02/16 at 23:00 Glucagon (Glucagen) 1 mg Q15M PRN IM DECREASED GLUCOSE; Start 12/02/16 at 23:00 Glucose (Glutose) 15 gm Q15M PRN BUCCAL DECREASED GLUCOSE; Start 12/02/16 at 23 :00 Acetaminophen (Tylenol Supp) 650 mg Q6H PRN [place] ELEVATED TEMPERATURE Last administered on 01/13/17 20:32; Admin Dose 650 MG; Start 12/09/16 at 17:00 Hydralazine HCl (Apresoline) 10 mg Q6H PRN IV SBP>150mm hg Last administered on 12/19/16 08:50; Admin Dose 10 MG; Start 12/11/16 at 10:30 Morphine Sulfate (morphine) 2 mg Q2H PRN IV PAIN LEVEL 4-7; Start 12/13/16 at 10 :00 Collagenase (Santyl) 1 applic DAILY TOP Last administered on 03/06/17 09:41; Admin Dose 1 APPLIC; Start 01/04/17 at 09:00 Metoprolol Tartrate (Lopressor) 5 mg Q4 PRN IV FOR H.R>110; Start 01/12/17 at 17:30 Acetaminophen (Tylenol Liquid) 650 mg Q6H PRN NGT PAIN AND [place] ELEVATED TEMP Last administered on 03/05/17 21:05; Admin Dose 650 MG; Start 01/13/17 at 23:30 Acetaminophen/ Hydrocodone Bitart ([place] (5/325)) 1 tab Q6H PRN NGT PAIN LEVEL 4-7; Start 01/13/17 at 23:30 Levetiracetam (Keppra Liquid) 1,000 mg DAILY NGT Last administered on 09:38; Admin Dose 1,000 MG; Start 01/14/17 at 09:00 Meclizine HCl (Antivert) 25 mg TID PRN NGT dizziness; Start 01/13/17 at 20:00 Zolpidem Tartrate (Ambien) 5 mg HS PRN NGT INSOMNIA; Start 01/13/17 at 20:00 Metoprolol Tartrate (Lopressor) 12.5 mg BID NGT Last administered on 02/24/17 10:54; Admin Dose 12.5 MG; Start 01/24/17 at 21:00; Status Future Hold Nystatin (Nystatin Susp) 5 ml Q6 PO Last administered on 03/06/17 17:07; Admin Dose 5 ML; Start 01/31/17 at 12:00 Lansoprazole (Prevacid) 30 mg DAILY@06 GTB Last administered on 03/06/17 05:45 ; Admin Dose 30 MG; Start 02/09/17 at 06:00 Multivitamins (Multivitamin) 30 ml DAILY GTB Last administered on 03/06/17 09: 38; Admin Dose 30 ML; Start 02/14/17 at 16:30 Docusate Sodium (Colace Liquid Cup) 100 mg BID GTB Last administered on 09:40; Admin Dose 100 MG; Start 02/14/17 at 21:00 Amiodarone HCl (Cordarone) 200 mg DAILY GTB Last administered on 03/06/17 09: 38; Admin Dose 200 MG; Start 02/19/17 at 09:00 Ascorbic Acid (Vitamin C) 500 mg DAILY GTB Last administered on 03/06/17 09:38 ; Admin Dose 500 MG; Start 02/22/17 at 09:00 Insulin Glargine (Lantus) 56 unit DAILY@20 SC Last administered on 03/05/17 21 :01; Admin Dose 56 UNIT; Start 02/22/17 at 20:00 Insulin Aspart NOVOLOG *MODERATE* ALGORI... Q4 SC Last administered on 17:21; Admin Dose 2 UNIT; Start 02/23/17 at 05:00 Sodium Chloride (NS) 1,000 ml @ 40 mls/hr Q24H IV Last administered on 14:48; Admin Dose 40 MLS/HR; Start 02/23/17 at 14:30 Metoclopramide HCl (Reglan) 5 mg Q6 IV Last administered on 03/06/17 17:07; Admin Dose 5 MG; Start 02/23/17 at 18:00 Apixaban 2.5 mg 2.5 mg BID GTB Last administered on 03/05/17 21:05; Admin Dose 2.5 MG; Start 03/03/17 at 21:00 Cefepime HCl/ Sodium Chloride (Maxipime/NS) 50 ml @ 100 mls/hr Q12 IVPB Last administered on 03/06/17 09:40; Admin Dose 100 MLS/HR; Start 03/04/17 at 12:00 Epoetin Kyler 6000 units 6,000 units MoWeFr@17 SC ; Start 03/07/17 at 17:00 Colistimethate Sodium/Sodium Chloride (Coly-Mycin/NS) 100 ml @ 200 mls/hr Q12 IVPB Last administered on 03/06/17 09:40; Admin Dose 200 MLS/HR; Start at 21:00 YULIANA SIMMONS Mar 06, 2017 17:56
--- NOTE | 2017-03-06 18:14 | RADRPT ---
PROCEDURE: XR Chest. CLINICAL INDICATION: The oxygen desaturation TECHNIQUE: Single AP portable chest. COMPARISON: 02/23/2017 Chest x-ray FINDINGS: The cardiomediastinal silhouette is within normal limits of size. Right dialysis catheter tip at the cavoatrial junction. Tracheostomy tube in place. Atherosclerotic calcification of the aorta. Mil d vascular congestion and small left pleural effusion. Hypoinflation of the lungs and mild vascular prominence which may reflect congestion or crowding of vascular structures. No pneumothorax. The os seous structures and soft tissues are unremarkable. IMPRESSION: 1. Hypoinflation with mild vascular prominence suggestive of congestion. 2. Right dialysis catheter in satisfactory position . RPTAT:AAJJ Lobo Owens Physician Date Time Electronically viewed and signed by Physician Penny on 03/06/2017 18:13 THALIA/
[2017-03-06] MEDS: INSULIN GLARGINE [LANtus] 3 ML PEN SC SCH (21:18)
[2017-03-06] MEDS: COLISTIMETHATE 100 MG in SOD CHLORIDE 0.9% 100 ML IVPB SCH (21:28)
[2017-03-06] MEDS: ACETAMINOPHEN 650MG/20.3ML CUP NGT PRN (21:32)
--- NOTE | 2017-03-06 23:52 | PN ---
Date/Time of Note Date/Time of Note DATE: 03/06/17 TIME: 23:51 Assessment/Plan Lines/Catheters IV Catheter Type (from Nrs): Peripheral IV Assessment/Plan Chief Complaint/Hosp Course 1. Multiple wounds with slough and debris; sacrococcygeal unstageable -debridement this week -specialty mattress -frequent turning and offloading -optimize nutrition -vitamin C/ short term zinc 2. Sepsis: multifactorial: multiple wounds +pneumonia + fungemia+ other; wbc normalized -abx per sensitivity -supportive 3. Respiratory failure s/p tracheostomy: 2/2 pna + pl effusions; s/p arrests x2 4. G-tube placement: tolerating tf 5. Thrush: on nystatin 6. ESRD: on dialysis - per nephrology 7. Paroxysmal atrial fibrillation. Eliquis 8. Diabetes: on lantus and sliding scale -blood sugar optimization 9. Diabetic foot ulcer with osteomyelitis of the distal phalanx of the great left toe -podiatry consult -diabetes management 10. Encephalopathy +/- CVA: Acute to subacute right occipital lobe ischemic infarct per CT; awake, responsive -supportive 11. Anemia: likely chronic disease,doubt acute bleed; h/h stable -monitor -transfuse as needed Thank you, Problems: Subjective 24 Hr Interval Summary Leukocytosis. Awake and responsive. Comfortable on vent. Tolerating feedings. No c/o pain, discomfort, fevers, chills, n/v/d, morales, sz, sob, cough. Exam/Review of Systems Vital Signs Vitals Vital Signs Date Time Temp Pulse Resp B/P Pulse Ox O2 Delivery O2 Flow Rate FiO2 03/06/17 23:20 72 18 98 30 03/06/17 20:00 98.5 119/56 Mechanical Ventilator Intake and Output 03/05/17 03/05/17 03/06/17 15:00 23:00 07:00 Intake Total 750 ml 600 ml Output Total 800 ml 700 ml Balance -50 ml -100 ml Exam Free Text/Dictation Constitutional: alert, non-verbal, No distress Psych: other (flat affect) Head: atraumatic, normocephalic Eyes: PERRL ENMT: No mucosa pink and moist (dry) Neck: other (tracheostomy, no drainage peristoma), supple Respiratory: crackles/rales, diminished breath sounds Cardiovascular: regular rate and rhythm Gastrointestinal: non-tender, other (gtube), soft Musculoskeletal: muscle weakness Extremities: edema (BUE +2), normal pulses Neurological: other (nonverbal), No nl speech, No nl strength Skin: other (multiple wounds: sacral necrotic tissue and slough, periwound erythema; see nurses notes and pictures) Results Result Diagram: 03/06/17 0648 03/06/17 0648 IRINEO SHORT MD Mar 06, 2017 23:52
[2017-03-07] VITALS (30 sets, daily range): BP systolic 88–135; BP diastolic 46–85; PULSE 78–96; RESP 16–23
[2017-03-07] MEDS: NYSTATIN SUSP 5 ML CUP PO SCH ×4 (01:19→17:00)
[2017-03-07] MEDS: METOCLOPRAMIDE 10 MG INJ IV SCH ×4 (01:19→17:08)
[2017-03-07] MEDS: INSULIN ASPART [NOVOLOG] 3 ML PEN SC SCH ×6 (01:24→21:00)
[2017-03-07] MEDS: ALBUTEROL 18 GM INHALER INH SCH ×4 (02:02→20:00)
[2017-03-07] MEDS: LANSOPRAZOLE 30 MG CAP GTB SCH (05:09)
[2017-03-07 07:33] LABS: BASOPHILS % 0.2 % (0.0-2.0); EOSINOPHILS # 0.1 10^3/ul (0.0-0.5); EOSINOPHILS % 1.1 % (0.0-7.0); HEMATOCRIT 24.1 % (42.0-52.0); HEMOGLOBIN 7.5 g/dl (14.0-18.0); LYMPHOCYTES # 0.7 10^3/ul (0.8-2.9); MEAN CORPUSCULAR HEMOGLOBIN 28.5 pg (29.0-33.0); MEAN CORPUSCULAR HGB CONC 31.1 g/dl (32.0-37.0); MEAN CORPUSCULAR VOLUME 91.6 fl (82.0-101.0); MEAN PLATELET VOLUME 9.9 fl (7.4-10.4); MONOCYTE # 0.9 10^3/ul (0.3-0.9); MONOCYTES % 8.7 % (0.0-11.0); NEUTROPHIL # 8.4 10^3/ul (1.6-7.5); NEUTROPHILS % 81.6 % (39.0-77.0); PLATELET COUNT 164 10^3/UL (140-415); RED BLOOD COUNT 2.63 10^6/ul (4.70-6.10); RED CELL DISTRIBUTION WIDTH 14.5 % (11.5-14.5); WHITE BLOOD COUNT 10.3 10^3/ul (4.8-10.8)
[2017-03-07 07:43] LABS: CALCIUM 8.3 mg/dl (8.4-10.2); CREATININE 0.71 mg/dl (0.61-1.24); POTASSIUM 4.4 mmol/L (3.5-5.1)
[2017-03-07] MEDS: DOCUSATE SODIUM 10 MG/ML (10ML CUP) GTB SCH ×2 (08:52→21:00)
[2017-03-07] MEDS: LEVETIRACETAM (100 MG/ML) 5ML CUP NGT SCH (08:52)
[2017-03-07] MEDS: ASCORBIC ACID 500 MG TAB GTB SCH (08:52)
[2017-03-07] MEDS: APIXABAN 5 MG TABLET GTB SCH ×2 (08:52→21:00)
[2017-03-07] MEDS: MULTIVITAMINS 30 ML CUP GTB SCH (08:53)
[2017-03-07] MEDS: AMIODARONE 200 MG TAB GTB SCH (08:53)
[2017-03-07] MEDS: COLLAGENASE 30 GM TUBE TOP SCH (09:03)
[2017-03-07] MEDS: CEFEPIME HCL 0.5 GM in SOD CHLORIDE 0.9% 50 ML IVPB SCH ×2 (09:03→21:00)
--- NOTE | 2017-03-07 10:56 | CONS ---
Date/Time of Note Date/Time of Note DATE: 03/07/17 TIME: 10:53 Assessment/Plan Assessment/Plan Chief Complaint/Hosp Course - possible UTI due to carbapenemase-producing klebsiella and pseudomonas - probable colonization of the resp scotty by pseudomonas - probable colonization of the urinary tract by yeast - s/p recurrent sepsis due to pneumonia - treated with cefepime, tobramycin, and caspofungin - s/p recurrent pneumonia due to pseudomonas - s/p sepsis due to possible tracheobronchitis/pneumonia - funguria - thrush, refractory to nystatin - recurrent cardiopulmonary arrest on 12/09/2016 and on 01/08/2017 - hypoxic respiratory failure, intubated for the 2nd time on 12/12/2016; extubated 12/18/2016; re-intubated for the 3rd time 01/08/2017, s/p tracheostomy 06/2017 - bleeding from trach site - resolved - acute on chronic anemia due to acute blood loss, requiring blood transfusion - 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 Blood cultures from HD catheter on 12/13/2016 are negative to date. 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 MRI on 12/06/2016 and bone scan on showed early OM of the distal phalanx of the left great toe and left fourth proximal phalanx. superficial swab grew inna only. At present, no e/o persistent infection - recurrent pleural effusion - s/p right pleural effusion s/p thoracentesis with .9L removed on 12/16/2016; ( Note: there is no pleural fluid cx since orders were placed after Right thoracentesis, and Left thoracentesis was not performed on 12/17/16 d/t insufficient fluid) - ARANZA on CKD that progressed to ESRD and started on HD from 12/09/2016 - oliguria - improved - A fib -> PAF - small nonreversible perfusion abnormality in the inferoapical and inferior carver; EF 36% per Lexiscan 12/24/2016 - severe , EF 40-45% per TTE 12/17/16 - DM - Hgb A1c 8.7% - HTN associated with DM - acute encephalopathy with anoxic brain injury - unstageable decubitus ulcer of coccyx, no evidence of infection - dysphagia s/p G-tube placement 02/08/2017 NOTE: Pt completed 6 weeks (12/03/2016-01/15/2017) of antibiotics to treat early OM of the distal phalanx of the left great toe and left fourth proximal phalanx ; s/p pip/tazo 12/03/16-01/08/17; linezolid 01/08/17-01/20/17; caspofungin 01/12/17-01/21/17 and 02/04/17-02/17/17; tobramycin 02/04/2017- 02/15/17 for pseudomonas; cefepime 02/02/17-02/18/17 recommendations: - pending results: sensitivity of Pt's carbapenemase-producing klebsiella for colistin, TGC, ceftaz/miranda, ceftaroline/tazo - continue IV cefepime for pseudomonas in urine culture (03/04/2017). It may be covered by colistin too - continue IV colistin for carbapenemase-producing kleb (03/06/2017-), plan for 7 days - wound care of the coccyx and upper back - contact isolation for carbapenemase-producing klebsiella management d/w charge nurse Problems: Consultation Date/Type/Reason Admit Date/Time Dec 02, 2016 at 21:01 Initial Consult Date 12/03/16 Type of Consultation: id Referring Provider: VIET PARKER MD 24 HR Interval Summary Subjective hx not possible: pt non-verbal Exam/Review of Systems Vital Signs Vitals Vital Signs Date Time Temp Pulse Resp B/P Pulse Ox O2 Delivery O2 Flow Rate FiO2 03/07/17 09:10 82 22 100 30 03/07/17 07:57 98.6 115/54 03/06/17 20:00 Mechanical Ventilator Intake and Output 03/06/17 03/06/17 03/07/17 15:00 23:00 07:00 Intake Total 750 ml 700 ml Output Total 600 ml 600 ml Balance 150 ml 100 ml Exam Constitutional: frail, non-verbal Psych: confusion Head: normocephalic Eyes: nl conjunctiva, nl lids ENMT: nl external ears & nose Neck: other (trach) Respiratory: clear to auscultation Cardiovascular: nl pulses, regular rate and rhythm Gastrointestinal: non-tender, other (GT), soft Musculoskeletal: nl extremities to inspection Extremities: No edema Neurological: confused, lethargic Skin: rash or lesions (coccyx, superficial skin tear of b/l heel) Results Result Diagram: 03/07/17 0659 03/07/17 0658 Results 24 hrs Laboratory Tests Test 03/06/17 12:25 03/06/17 17:15 03/06/17 21:14 03/07/17 01:20 Bedside Glucose 138 152 147 152 Test 03/07/17 05:14 03/07/17 06:58 03/07/17 06:59 03/07/17 08:50 Bedside Glucose 130 133 Sodium Level 146 H Potassium Level 4.4 Chloride Level 100 Carbon Dioxide Level 32 H Anion Gap 18 H Blood Urea Nitrogen 47 H Creatinine 0.71 Glucose Level 114 Calcium Level 8.3 L White Blood Count 10.3 Red Blood Count 2.63 L Hemoglobin 7.5 L Hematocrit 24.1 L Mean Corpuscular Volume 91.6 Mean Corpuscular Hemoglobin 28.5 L Mean Corpuscular Hemoglobin Concent 31.1 L Red Cell Distribution Width 14.5 Platelet Count 164 Mean Platelet Volume 9.9 Neutrophils % 81.6 H Lymphocytes % 7.0 L Monocytes % 8.7 Eosinophils % 1.1 Basophils % 0.2 Nucleated Red Blood Cells % 0.0 Neutrophils # 8.4 H Lymphocytes # 0.7 L Monocytes # 0.9 Eosinophils # 0.1 Basophils # 0.0 Nucleated Red Blood Cells # 0.0 Medications Medications Current Medications Ondansetron HCl (Zofran Inj) 4 mg Q6H PRN IV NAUSEA AND/OR VOMITING Last administered on 02/23/17 12:49; Admin Dose 4 MG; Start 12/02/16 at 22:30 Miscellaneous Information 1 ea NOTE XX ; Start 12/02/16 at 23:00 Glucose (Glutose) 15 gm Q15M PRN PO DECREASED GLUCOSE; Start 12/02/16 at 23:00 Glucose (Glutose) 22.5 gm Q15M PRN PO DECREASED GLUCOSE; Start 12/02/16 at 23: 00 Dextrose (D50w Syringe) 25 ml Q15M PRN IV DECREASED GLUCOSE Last administered on 02/24/17 05:56; Admin Dose 25 ML; Start 12/02/16 at 23:00 Dextrose (D50w Syringe) 50 ml Q15M PRN IV DECREASED GLUCOSE Last administered on 01/23/17 04:58; Admin Dose 50 ML; Start 12/02/16 at 23:00 Glucagon (Glucagen) 1 mg Q15M PRN IM DECREASED GLUCOSE; Start 12/02/16 at 23:00 Glucose (Glutose) 15 gm Q15M PRN BUCCAL DECREASED GLUCOSE; Start 12/02/16 at 23 :00 Acetaminophen (Tylenol Supp) 650 mg Q6H PRN [place] ELEVATED TEMPERATURE Last administered on 01/13/17 20:32; Admin Dose 650 MG; Start 12/09/16 at 17:00 Hydralazine HCl (Apresoline) 10 mg Q6H PRN IV SBP>150mm hg Last administered on 12/19/16 08:50; Admin Dose 10 MG; Start 12/11/16 at 10:30 Morphine Sulfate (morphine) 2 mg Q2H PRN IV PAIN LEVEL 4-7; Start 12/13/16 at 10 :00 Collagenase (Santyl) 1 applic DAILY TOP Last administered on 03/07/17 09:03; Admin Dose 1 APPLIC; Start 01/04/17 at 09:00 Metoprolol Tartrate (Lopressor) 5 mg Q4 PRN IV FOR H.R>110; Start 01/12/17 at 17:30 Acetaminophen (Tylenol Liquid) 650 mg Q6H PRN NGT PAIN AND OR ELEVATED TEMP Last administered on 03/06/17 21:32; Admin Dose 650 MG; Start 01/13/17 at 23:30 Acetaminophen/ Hydrocodone Bitart ([place] (5/325)) 1 tab Q6H PRN NGT PAIN LEVEL 4-7; Start 01/13/17 at 23:30 Levetiracetam (Keppra Liquid) 1,000 mg DAILY NGT Last administered on 08:52; Admin Dose 1,000 MG; Start 01/14/17 at 09:00 Meclizine HCl (Antivert) 25 mg TID PRN NGT dizziness; Start 01/13/17 at 20:00 Zolpidem Tartrate (Ambien) 5 mg HS PRN NGT INSOMNIA; Start 01/13/17 at 20:00 Metoprolol Tartrate (Lopressor) 12.5 mg BID NGT Last administered on 02/24/17 10:54; Admin Dose 12.5 MG; Start 01/24/17 at 21:00; Status Future Hold Nystatin (Nystatin Susp) 5 ml Q6 PO Last administered on 03/07/17 05:09; Admin Dose 5 ML; Start 01/31/17 at 12:00 Lansoprazole (Prevacid) 30 mg DAILY@06 GTB Last administered on 03/07/17 05:09 ; Admin Dose 30 MG; Start 02/09/17 at 06:00 Multivitamins (Multivitamin) 30 ml DAILY GTB Last administered on 03/07/17 08: 53; Admin Dose 30 ML; Start 02/14/17 at 16:30 Docusate Sodium (Colace Liquid Cup) 100 mg BID GTB Last administered on 08:52; Admin Dose 100 MG; Start 02/14/17 at 21:00 Amiodarone HCl (Cordarone) 200 mg DAILY GTB Last administered on 03/06/17 09: 38; Admin Dose 200 MG; Start 02/19/17 at 09:00 Ascorbic Acid (Vitamin C) 500 mg DAILY GTB Last administered on 03/07/17 08:52 ; Admin Dose 500 MG; Start 02/22/17 at 09:00 Insulin Glargine (Lantus) 56 unit DAILY@20 SC Last administered on 03/06/17 21 :18; Admin Dose 56 UNIT; Start 02/22/17 at 20:00 Insulin Aspart NOVOLOG *MODERATE* ALGORI... Q4 SC Last administered on 01:24; Admin Dose 2 UNIT; Start 02/23/17 at 05:00 Sodium Chloride (NS) 1,000 ml @ 40 mls/hr Q24H IV Last administered on 14:48; Admin Dose 40 MLS/HR; Start 02/23/17 at 14:30 Metoclopramide HCl (Reglan) 5 mg Q6 IV Last administered on 03/07/17 05:09; Admin Dose 5 MG; Start 02/23/17 at 18:00 Apixaban 2.5 mg 2.5 mg BID GTB Last administered on 03/07/17 08:52; Admin Dose 2.5 MG; Start 03/03/17 at 21:00 Cefepime HCl/ Sodium Chloride (Maxipime/NS) 50 ml @ 100 mls/hr Q12 IVPB Last administered on 03/07/17 09:03; Admin Dose 100 MLS/HR; Start 03/04/17 at 12:00 Epoetin Kyler 6000 units 6,000 units MoWeFr@17 SC ; Start 03/07/17 at 17:00 Colistimethate Sodium/Sodium Chloride (Coly-Mycin/NS) 100 ml @ 200 mls/hr Q24H IVPB Last administered on 03/06/17 21:28; Admin Dose 200 MLS/HR; Start at 21:00 CHRISTY LOPEZ M.D. Mar 07, 2017 10:56
--- NOTE | 2017-03-07 11:52 | PN ---
Date/Time of Note Date/Time of Note DATE: 03/07/17 TIME: 11:47 Assessment/Plan Lines/Catheters IV Catheter Type (from Nrs): Peripheral IV Assessment/Plan Chief Complaint/Hosp Course 1. Multiple wounds with slough and debris; sacrococcygeal unstageable -debridement -specialty mattress -frequent turning and offloading -optimize nutrition -vitamin C/ short term zinc 2. Sepsis: multifactorial: multiple wounds +pneumonia + fungemia+ uti (yeast) + other; wbc normalized -abx per sensitivity -supportive 3. Respiratory failure s/p tracheostomy: 2/2 pna + pl effusions; s/p arrests x2 4. G-tube placement: tolerating tf 5. Thrush: on nystatin 6. ESRD: on dialysis - per nephrology 7. Paroxysmal atrial fibrillation. Eliquis 8. Diabetes: on lantus and sliding scale -blood sugar optimization 9. Diabetic foot ulcer with osteomyelitis of the distal phalanx of the great left toe -podiatry consult -diabetes management 10. Encephalopathy +/- CVA: Acute to subacute right occipital lobe ischemic infarct per CT; awake, responsive -supportive 11. Anemia: likely chronic disease,doubt acute bleed; h/h lower -monitor -transfuse as needed 12. UTI: yeast -abx per sensitivities 13. Hypernatremia: -judicious fluids Patient seen and examined in collaboration with Dr. Vincent Brown Problems: Subjective 24 Hr Interval Summary somnolent but responsive. Comfortable on vent. Tolerating feedings. No c/o pain , discomfort, fevers, chills, n/v/d, morales, sz, sob, cough. Exam/Review of Systems Vital Signs Vitals Vital Signs Date Time Temp Pulse Resp B/P Pulse Ox O2 Delivery O2 Flow Rate FiO2 03/07/17 10:55 98.2 65 16 135/85 97 03/07/17 09:10 30 03/06/17 20:00 Mechanical Ventilator Intake and Output 03/06/17 03/06/17 03/07/17 15:00 23:00 07:00 Intake Total 750 ml 700 ml Output Total 600 ml 600 ml Balance 150 ml 100 ml Exam Free Text/Dictation Constitutional: alert, non-verbal, No distress Psych: other (flat affect) Head: atraumatic, normocephalic Eyes: PERRL ENMT: No mucosa pink and moist (dry) Neck: other (tracheostomy, no drainage peristoma), supple Respiratory: crackles/rales, diminished breath sounds Cardiovascular: regular rate and rhythm Gastrointestinal: non-tender, other (gtube), soft Musculoskeletal: muscle weakness Extremities: edema (BUE +2), normal pulses Neurological: other (nonverbal), No nl speech, No nl strength Skin: other (multiple wounds: sacral necrotic tissue and slough, periwound erythema; see nurses notes and pictures) Results Result Diagram: 03/07/17 0659 03/07/17 0658 PERLA MUJICA NP Mar 07, 2017 11:52
--- NOTE | 2017-03-07 12:01 | CONS ---
Date/Time of Note Date/Time of Note DATE: 03/07/17 TIME: 11:59 Assessment/Plan Assessment/Plan Chief Complaint/Hosp Course IMPRESSION: 1. Atrial fibrillation-Having episodes of PAF with reasonable rate control. Currently remains in SR. Had pause approximately 4 during suctioning. No recurrent pause since holding of BB 2. Hypotension-overall improved and stable 3. Abnormal electrocardiogram with inferolateral T-wave inversions. 4. Respiratory failure-s/p trach placement 5. Nonhealing toe ulceration-vascular following 6. Peripheral arterial disease by arterial ultrasound of the lower extremities this admission. 7. Diabetes mellitus. 8. Fevers. 9. Positive troponin-downtrended 10.Bradycardia-improved/stable 11.-severe by echo 12.Cardiomyopathy-EF 40-45% by echo/36% by stress with no ischemia but positive scar. EF <30% by echo post arrest 13.Encephalopathy-anoxic 14. s/p cardiopulmonary arrest 01/08 15. Pre-op-for debridemnt of decubitis ulcer- Patient at this time has no definite cardiac contraindication to proceeding to OR for debridement but is at high risk for CV complications due to severe and cardiomyopathy 16. Hypernatremia Recc: -Tele -serial ecg -HD for volume removal as tolerated ongoing today -Continu Eliquis -Continue PO amio in attempt to maintain SR, daily and follow for any recurrent pauses -Will hold on afterload reduction given severe and thus fixed afterload at valve orifice -Continue to hold BB and follow for recurrent pause Problems: Consultation Date/Type/Reason Admit Date/Time Dec 02, 2016 at 21:01 Initial Consult Date 12/03/16 Type of Consultation: cardioloogy Reason for Consultation cardiomyopathy//AF Referring Provider: VIET PARKER MD Exam/Review of Systems Vital Signs Vitals Vital Signs Date Time Temp Pulse Resp B/P Pulse Ox O2 Delivery O2 Flow Rate FiO2 03/07/17 10:55 98.2 65 16 135/85 97 03/07/17 09:10 30 03/06/17 20:00 Mechanical Ventilator Intake and Output 03/06/17 03/06/17 03/07/17 15:00 23:00 07:00 Intake Total 750 ml 700 ml Output Total 600 ml 600 ml Balance 150 ml 100 ml Exam Review of Systems: CONSTITUTIONAL: No fevers, chills. PULMONARY: No sob CARDIOVASCULAR: No chest pain/palpitations GASTROINTESTINAL: No nausea/vomiting. GENITOURINARY: No hematuria/dysuria. MUSCULOSKELETAL: No myagias/arthalgias. PSYCHIATRIC: The patient denies depression. NEUROLOGIC: No weakness Constitutional: other (encephalopathic) Psych: no complaints Head: normocephalic ENMT: mucosa pink and moist Neck: jvd (8-9 cm water), other (trached), supple Respiratory: other (upper airway rhoncherous sounds) Cardiovascular: regular rate and rhythm Gastrointestinal: non-tender, soft Musculoskeletal: No muscle tone (normal) Extremities: edema (none) Neurological: other (No focal deficits) Results Result Diagram: 03/07/17 0659 03/07/17 0658 Results 24 hrs Laboratory Tests Test 03/06/17 12:25 03/06/17 17:15 03/06/17 21:14 03/07/17 01:20 Bedside Glucose 138 152 147 152 Test 03/07/17 05:14 03/07/17 06:58 03/07/17 06:59 03/07/17 08:50 Bedside Glucose 130 133 Sodium Level 146 H Potassium Level 4.4 Chloride Level 100 Carbon Dioxide Level 32 H Anion Gap 18 H Blood Urea Nitrogen 47 H Creatinine 0.71 Glucose Level 114 Calcium Level 8.3 L White Blood Count 10.3 Red Blood Count 2.63 L Hemoglobin 7.5 L Hematocrit 24.1 L Mean Corpuscular Volume 91.6 Mean Corpuscular Hemoglobin 28.5 L Mean Corpuscular Hemoglobin Concent 31.1 L Red Cell Distribution Width 14.5 Platelet Count 164 Mean Platelet Volume 9.9 Neutrophils % 81.6 H Lymphocytes % 7.0 L Monocytes % 8.7 Eosinophils % 1.1 Basophils % 0.2 Nucleated Red Blood Cells % 0.0 Neutrophils # 8.4 H Lymphocytes # 0.7 L Monocytes # 0.9 Eosinophils # 0.1 Basophils # 0.0 Nucleated Red Blood Cells # 0.0 Medications Medications Current Medications Ondansetron HCl (Zofran Inj) 4 mg Q6H PRN IV NAUSEA AND/OR VOMITING Last administered on 02/23/17t 12:49; Admin Dose 4 MG; Start 12/02/16 at 22:30 Miscellaneous Information 1 ea NOTE XX ; Start 12/02/16 at 23:00 Glucose (Glutose) 15 gm Q15M PRN PO DECREASED GLUCOSE; Start 12/02/16 at 23:00 Glucose (Glutose) 22.5 gm Q15M PRN PO DECREASED GLUCOSE; Start 12/02/16 at 23: 00 Dextrose (D50w Syringe) 25 ml Q15M PRN IV DECREASED GLUCOSE Last administered on 02/24/17 05:56; Admin Dose 25 ML; Start 12/02/16 at 23:00 Dextrose (D50w Syringe) 50 ml Q15M PRN IV DECREASED GLUCOSE Last administered on 01/23/17 04:58; Admin Dose 50 ML; Start 12/02/16 at 23:00 Glucagon (Glucagen) 1 mg Q15M PRN IM DECREASED GLUCOSE; Start 12/02/16 at 23:00 Glucose (Glutose) 15 gm Q15M PRN BUCCAL DECREASED GLUCOSE; Start 12/02/16 at 23 :00 Acetaminophen (Tylenol Supp) 650 mg Q6H PRN [place] ELEVATED TEMPERATURE Last administered on 01/13/17 20:32; Admin Dose 650 MG; Start 12/09/16 at 17:00 Hydralazine HCl (Apresoline) 10 mg Q6H PRN IV SBP>150mm hg Last administered on 12/19/16 08:50; Admin Dose 10 MG; Start 12/11/16 at 10:30 Morphine Sulfate (morphine) 2 mg Q2H PRN IV PAIN LEVEL 4-7; Start 12/13/16 at 10 :00 Collagenase (Santyl) 1 applic DAILY TOP Last administered on 03/07/17 09:03; Admin Dose 1 APPLIC; Start 01/04/17 at 09:00 Metoprolol Tartrate (Lopressor) 5 mg Q4 PRN IV FOR H.R>110; Start 01/12/17 at 17:30 Acetaminophen (Tylenol Liquid) 650 mg Q6H PRN NGT PAIN AND OR ELEVATED TEMP Last administered on 03/06/17 21:32; Admin Dose 650 MG; Start 01/13/17 at 23:30 Acetaminophen/ Hydrocodone Bitart ([place] (5/325)) 1 tab Q6H PRN NGT PAIN LEVEL 4-7; Start 01/13/17 at 23:30 Levetiracetam (Keppra Liquid) 1,000 mg DAILY NGT Last administered on 08:52; Admin Dose 1,000 MG; Start 01/14/17 at 09:00 Meclizine HCl (Antivert) 25 mg TID PRN NGT dizziness; Start 01/13/17 at 20:00 Zolpidem Tartrate (Ambien) 5 mg HS PRN NGT INSOMNIA; Start 01/13/17 at 20:00 Metoprolol Tartrate (Lopressor) 12.5 mg BID NGT Last administered on 02/24/17 10:54; Admin Dose 12.5 MG; Start 01/24/17 at 21:00; Status Future Hold Nystatin (Nystatin Susp) 5 ml Q6 PO Last administered on 03/07/17 05:09; Admin Dose 5 ML; Start 01/31/17 at 12:00 Lansoprazole (Prevacid) 30 mg DAILY@06 GTB Last administered on 03/07/17 05:09 ; Admin Dose 30 MG; Start 02/09/17 at 06:00 Multivitamins (Multivitamin) 30 ml DAILY GTB Last administered on 03/07/17 08: 53; Admin Dose 30 ML; Start 02/14/17 at 16:30 Docusate Sodium (Colace Liquid Cup) 100 mg BID GTB Last administered on 08:52; Admin Dose 100 MG; Start 02/14/17 at 21:00 Amiodarone HCl (Cordarone) 200 mg DAILY GTB Last administered on 03/06/17 09: 38; Admin Dose 200 MG; Start 02/19/17 at 09:00 Ascorbic Acid (Vitamin C) 500 mg DAILY GTB Last administered on 03/07/17 08:52 ; Admin Dose 500 MG; Start 02/22/17 at 09:00 Insulin Glargine (Lantus) 56 unit DAILY@20 SC Last administered on 03/06/17 21 :18; Admin Dose 56 UNIT; Start 02/22/17 at 20:00 Insulin Aspart NOVOLOG *MODERATE* ALGORI... Q4 SC Last administered on 01:24; Admin Dose 2 UNIT; Start 02/23/17 at 05:00 Sodium Chloride (NS) 1,000 ml @ 40 mls/hr Q24H IV Last administered on 14:48; Admin Dose 40 MLS/HR; Start 02/23/17 at 14:30 Metoclopramide HCl (Reglan) 5 mg Q6 IV Last administered on 03/07/17 05:09; Admin Dose 5 MG; Start 02/23/17 at 18:00 Apixaban 2.5 mg 2.5 mg BID GTB Last administered on 03/07/17 08:52; Admin Dose 2.5 MG; Start 03/03/17 at 21:00 Cefepime HCl/ Sodium Chloride (Maxipime/NS) 50 ml @ 100 mls/hr Q12 IVPB Last administered on 03/07/17 09:03; Admin Dose 100 MLS/HR; Start 03/04/17 at 12:00 Epoetin Kyler 6000 units 6,000 units MoWeFr@17 SC ; Start 03/07/17 at 17:00 Colistimethate Sodium/Sodium Chloride (Coly-Mycin/NS) 100 ml @ 200 mls/hr Q24H IVPB Last administered on 03/06/17 21:28; Admin Dose 200 MLS/HR; Start at 21:00 VICENTE LESLIE Mar 07, 2017 12:01
--- NOTE | 2017-03-07 14:04 | PN ---
Date/Time of Note Date/Time of Note DATE: 03/07/17 TIME: 14:01 Assessment/Plan VTE Prophylaxis VTE Prophylaxis Intervention: SCD's Lines/Catheters IV C[facility]ter Type (from [facility]): Peripheral IV Central line still needed: Yes Assessment/Plan Chief Complaint/Hosp Course Pt is undergoing HD, tolerated GT feeding well, clinically stable. ASSESSMENT AND PLAN: -Recurrent UTI, continue antibiotics per ID. - Sacral decubitus ulcer, DrGurpreet Brown is following in surgical consultation. - Possible recurrent sepsis, resolving. Continue antibiotics per ID. Dr Celena pritchard is following infection disease consultation. - Dysphagia. S/p G-tube by Dr. Smith. Continue G-tube feeding, monitor residual. - Anemia of blood loss. Continue to monitor H&H, transfuse as needed. - Status post cardiopulmonary arrest on 12/09/2016 and 01/08/2017. Continue ventilatory support. - Anoxic encephalopathy. Continue Keppra. - Status post tracheostomy on 01/23/2017. Continue tracheostomy care. - End-stage renal disease. Continue hemodialysis per nephrology. - Paroxysmal atrial fibrillation. Continue Eliquis. - Diabetes mellitus type 2. Continue Lantus and NovoLog with sliding scale coverage with Accu-Cheks q. 4 hours. - Diabetic foot ulcer. Continue current wound care. - Osteomyelitis of the distal phalanx of the great left toe. Completed treatment for antibiotics. Continue sequential compression device for deep venous thrombosis prophylaxis and Protonix for peptic ulcer disease prophylaxis. Further recommendations based on clinical course. Plan of care discussed with Dr. Heredia. Problems: Exam/Review of Systems Vital Signs Vitals Vital Signs Date Time Temp Pulse Resp B/P Pulse Ox O2 Delivery O2 Flow Rate FiO2 03/07/17 12:23 89 03/07/17 11:10 19 98 30 03/07/17 10:55 98.2 135/85 03/06/17 20:00 Mechanical Ventilator Intake and Output 03/06/17 03/06/17 03/07/17 15:00 23:00 07:00 Intake Total 750 ml 700 ml Output Total 600 ml 600 ml Balance 150 ml 100 ml Exam Constitutional: non-verbal Head: atraumatic, normocephalic ENMT: other (Nasogastric tube) Neck: other (Tracheostomy), supple Respiratory: diminished breath sounds Cardiovascular: nl pulses Gastrointestinal: non-tender, soft, GT Neurological: unresponsive Results Result Diagram: 03/07/17 0659 03/07/17 0658 Results 24 hrs Laboratory Tests Test 03/06/17 17:15 03/06/17 21:14 03/07/17 01:20 03/07/17 05:14 Bedside Glucose 152 147 152 130 Test 03/07/17 06:58 03/07/17 06:59 03/07/17 08:50 03/07/17 12:34 Sodium Level 146 H Potassium Level 4.4 Chloride Level 100 Carbon Dioxide Level 32 H Anion Gap 18 H Blood Urea Nitrogen 47 H Creatinine 0.71 Glucose Level 114 Calcium Level 8.3 L White Blood Count 10.3 Red Blood Count 2.63 L Hemoglobin 7.5 L Hematocrit 24.1 L Mean Corpuscular Volume 91.6 Mean Corpuscular Hemoglobin 28.5 L Mean Corpuscular Hemoglobin Concent 31.1 L Red Cell Distribution Width 14.5 Platelet Count 164 Mean Platelet Volume 9.9 Neutrophils % 81.6 H Lymphocytes % 7.0 L Monocytes % 8.7 Eosinophils % 1.1 Basophils % 0.2 Nucleated Red Blood Cells % 0.0 Neutrophils # 8.4 H Lymphocytes # 0.7 L Monocytes # 0.9 Eosinophils # 0.1 Basophils # 0.0 Nucleated Red Blood Cells # 0.0 Bedside Glucose 133 172 Medications Medications Current Medications Ondansetron HCl (Zofran Inj) 4 mg Q6H PRN IV NAUSEA AND/OR VOMITING Last administered on 02/23/17 12:49; Admin Dose 4 MG; Start 12/02/16 at 22:30 Miscellaneous Information 1 ea NOTE XX ; Start 12/02/16 at 23:00 Glucose (Glutose) 15 gm Q15M PRN PO DECREASED GLUCOSE; Start 12/02/16 at 23:00 Glucose (Glutose) 22.5 gm Q15M PRN PO DECREASED GLUCOSE; Start 12/02/16 at 23: 00 Dextrose (D50w Syringe) 25 ml Q15M PRN IV DECREASED GLUCOSE Last administered on 02/24/17 05:56; Admin Dose 25 ML; Start 12/02/16 at 23:00 Dextrose (D50w Syringe) 50 ml Q15M PRN IV DECREASED GLUCOSE Last administered on 01/23/17 04:58; Admin Dose 50 ML; Start 12/02/16 at 23:00 Glucagon (Glucagen) 1 mg Q15M PRN IM DECREASED GLUCOSE; Start 12/02/16 at 23:00 Glucose (Glutose) 15 gm Q15M PRN BUCCAL DECREASED GLUCOSE; Start 12/02/16 at 23 :00 Acetaminophen (Tylenol Supp) 650 mg Q6H PRN [place] ELEVATED TEMPERATURE Last administered on 01/13/17 20:32; Admin Dose 650 MG; Start 12/09/16 at 17:00 Hydralazine HCl (Apresoline) 10 mg Q6H PRN IV SBP>150mm hg Last administered on 12/19/16 08:50; Admin Dose 10 MG; Start 12/11/16 at 10:30 Morphine Sulfate (morphine) 2 mg Q2H PRN IV PAIN LEVEL 4-7; Start 12/13/16 at 10 :00 Collagenase (Santyl) 1 applic DAILY TOP Last administered on 03/07/17 09:03; Admin Dose 1 APPLIC; Start 01/04/17 at 09:00 Metoprolol Tartrate (Lopressor) 5 mg Q4 PRN IV FOR H.R>110; Start 01/12/17 at 17:30 Acetaminophen (Tylenol Liquid) 650 mg Q6H PRN NGT PAIN AND OR ELEVATED TEMP Last administered on 03/06/17 21:32; Admin Dose 650 MG; Start 01/13/17 at 23:30 Acetaminophen/ Hydrocodone Bitart ([place] (5/325)) 1 tab Q6H PRN NGT PAIN LEVEL 4-7; Start 01/13/17 at 23:30 Levetiracetam (Keppra Liquid) 1,000 mg DAILY NGT Last administered on 08:52; Admin Dose 1,000 MG; Start 01/14/17 at 09:00 Meclizine HCl (Antivert) 25 mg TID PRN NGT dizziness; Start 01/13/17 at 20:00 Zolpidem Tartrate (Ambien) 5 mg HS PRN NGT INSOMNIA; Start 01/13/17 at 20:00 Metoprolol Tartrate (Lopressor) 12.5 mg BID NGT Last administered on 02/24/17 10:54; Admin Dose 12.5 MG; Start 01/24/17 at 21:00; Status Future Hold Nystatin (Nystatin Susp) 5 ml Q6 PO Last administered on 03/07/17 12:34; Admin Dose 5 ML; Start 01/31/17 at 12:00 Lansoprazole (Prevacid) 30 mg DAILY@06 GTB Last administered on 03/07/17 05:09 ; Admin Dose 30 MG; Start 02/09/17 at 06:00 Multivitamins (Multivitamin) 30 ml DAILY GTB Last administered on 03/07/17 08: 53; Admin Dose 30 ML; Start 02/14/17 at 16:30 Docusate Sodium (Colace Liquid Cup) 100 mg BID GTB Last administered on 08:52; Admin Dose 100 MG; Start 02/14/17 at 21:00 Amiodarone HCl (Cordarone) 200 mg DAILY GTB Last administered on 03/06/17 09: 38; Admin Dose 200 MG; Start 02/19/17 at 09:00 Ascorbic Acid (Vitamin C) 500 mg DAILY GTB Last administered on 03/07/17 08:52 ; Admin Dose 500 MG; Start 02/22/17 at 09:00 Insulin Glargine (Lantus) 56 unit DAILY@20 SC Last administered on 03/06/17 21 :18; Admin Dose 56 UNIT; Start 02/22/17 at 20:00 Insulin Aspart NOVOLOG *MODERATE* ALGORI... Q4 SC Last administered on 12:37; Admin Dose 2 UNIT; Start 02/23/17 at 05:00 Sodium Chloride (NS) 1,000 ml @ 40 mls/hr Q24H IV Last administered on 14:48; Admin Dose 40 MLS/HR; Start 02/23/17 at 14:30 Metoclopramide HCl (Reglan) 5 mg Q6 IV Last administered on 03/07/17 12:35; Admin Dose 5 MG; Start 02/23/17 at 18:00 Apixaban 2.5 mg 2.5 mg BID GTB Last administered on 03/07/17 08:52; Admin Dose 2.5 MG; Start 03/03/17 at 21:00 Cefepime HCl/ Sodium Chloride (Maxipime/NS) 50 ml @ 100 mls/hr Q12 IVPB Last administered on 03/07/17 09:03; Admin Dose 100 MLS/HR; Start 03/04/17 at 12:00 Epoetin Kyler 6000 units 6,000 units MoWeFr@17 SC ; Start 03/07/17 at 17:00 Colistimethate Sodium/Sodium Chloride (Coly-Mycin/NS) 100 ml @ 200 mls/hr Q24H IVPB Last administered on 03/06/17 21:28; Admin Dose 200 MLS/HR; Start at 21:00 KIMBERLY NOYOLA Mar 07, 2017 14:04
--- NOTE | 2017-03-07 14:13 | CONS ---
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 Blood cultures from HD catheter on 12/13/2016 are negative to date. 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 MRI on 12/06/2016 and bone scan on showed early OM of the distal phalanx of the left great toe and left fourth proximal phalanx. superficial swab grew inna only - s/p right pleural effusion s/p thoracentesis with .9L removed on 12/16/2016 - severe , EF 40-45% per TTE 12/17/16 - DM - Hgb A1c 8.7% - HTN associated with DM - sp Tracheostomy site bleeding Plan: will conitnue HD on MWF - HD ordered for today continue epogen for anemia awaiting debridement of wound s/p Tracheostomy, pt will need HD palcement at a unit where they can do a HD for pt with tracheostomy and PEG tube placemen t- binder caser worked on it pt has severe , very labile BP sometimes with HD will continue to follow up for HD need Consultation Date/Type/Reason Admit Date/Time Dec 02, 2016 at 21:01 Initial Consult Date Type of Consultation: NEPHROLOGY Referring Provider: VIET PARKER MD 24 HR Interval Summary Free Text/Dictation doing ok, Bp stable, plan for HD today Exam/Review of Systems Vital Signs Vitals Vital Signs Date Time Temp Pulse Resp B/P Pulse Ox O2 Delivery O2 Flow Rate FiO2 03/07/17 12:23 89 03/07/17 11:10 19 98 30 03/07/17 10:55 98.2 135/85 03/06/17 20:00 Mechanical Ventilator Intake and Output 03/06/17 03/06/17 03/07/17 15:00 23:00 07:00 Intake Total 750 ml 700 ml Output Total 600 ml 600 ml Balance 150 ml 100 ml Exam Constitutional: non-verbal Psych: confusion Head: atraumatic, normocephalic+ tracheostomy Respiratory: clear to auscultation, normal air movement Cardiovascular: nl pulses, regular rate and rhythm Gastrointestinal: non-tender, soft Extremities: No edema Neurological: lethargic Skin: rash or lesions (decubitus ulcer is clean, non-purulent, well vascularized tissue) Results Result Diagram: 03/07/17 0659 03/07/17 0658 Results 24 hrs Laboratory Tests Test 03/06/17 17:15 03/06/17 21:14 03/07/17 01:20 03/07/17 05:14 Bedside Glucose 152 147 152 130 Test 03/07/17 06:58 03/07/17 06:59 03/07/17 08:50 03/07/17 12:34 Sodium Level 146 H Potassium Level 4.4 Chloride Level 100 Carbon Dioxide Level 32 H Anion Gap 18 H Blood Urea Nitrogen 47 H Creatinine 0.71 Glucose Level 114 Calcium Level 8.3 L White Blood Count 10.3 Red Blood Count 2.63 L Hemoglobin 7.5 L Hematocrit 24.1 L Mean Corpuscular Volume 91.6 Mean Corpuscular Hemoglobin 28.5 L Mean Corpuscular Hemoglobin Concent 31.1 L Red Cell Distribution Width 14.5 Platelet Count 164 Mean Platelet Volume 9.9 Neutrophils % 81.6 H Lymphocytes % 7.0 L Monocytes % 8.7 Eosinophils % 1.1 Basophils % 0.2 Nucleated Red Blood Cells % 0.0 Neutrophils # 8.4 H Lymphocytes # 0.7 L Monocytes # 0.9 Eosinophils # 0.1 Basophils # 0.0 Nucleated Red Blood Cells # 0.0 Bedside Glucose 133 172 Medications Medications Current Medications Ondansetron HCl (Zofran Inj) 4 mg Q6H PRN IV NAUSEA AND/OR VOMITING Last administered on 02/23/17t 12:49; Admin Dose 4 MG; Start 12/02/16 at 22:30 Miscellaneous Information 1 ea NOTE XX ; Start 12/02/16 at 23:00 Glucose (Glutose) 15 gm Q15M PRN PO DECREASED GLUCOSE; Start 12/02/16 at 23:00 Glucose (Glutose) 22.5 gm Q15M PRN PO DECREASED GLUCOSE; Start 12/02/16 at 23: 00 Dextrose (D50w Syringe) 25 ml Q15M PRN IV DECREASED GLUCOSE Last administered on 02/24/17 05:56; Admin Dose 25 ML; Start 12/02/16 at 23:00 Dextrose (D50w Syringe) 50 ml Q15M PRN IV DECREASED GLUCOSE Last administered on 01/23/17 04:58; Admin Dose 50 ML; Start 12/02/16 at 23:00 Glucagon (Glucagen) 1 mg Q15M PRN IM DECREASED GLUCOSE; Start 12/02/16 at 23:00 Glucose (Glutose) 15 gm Q15M PRN BUCCAL DECREASED GLUCOSE; Start 12/02/16 at 23 :00 Acetaminophen (Tylenol Supp) 650 mg Q6H PRN [place] ELEVATED TEMPERATURE Last administered on 01/13/17 20:32; Admin Dose 650 MG; Start 12/09/16 at 17:00 Hydralazine HCl (Apresoline) 10 mg Q6H PRN IV SBP>150mm hg Last administered on 12/19/16 08:50; Admin Dose 10 MG; Start 12/11/16 at 10:30 Morphine Sulfate (morphine) 2 mg Q2H PRN IV PAIN LEVEL 4-7; Start 12/13/16 at 10 :00 Collagenase (Santyl) 1 applic DAILY TOP Last administered on 03/07/17 09:03; Admin Dose 1 APPLIC; Start 01/04/17 at 09:00 Metoprolol Tartrate (Lopressor) 5 mg Q4 PRN IV FOR H.R>110; Start 01/12/17 at 17:30 Acetaminophen (Tylenol Liquid) 650 mg Q6H PRN NGT PAIN AND OR ELEVATED TEMP Last administered on 03/06/17 21:32; Admin Dose 650 MG; Start 01/13/17 at 23:30 Acetaminophen/ Hydrocodone Bitart ([place] (5/325)) 1 tab Q6H PRN NGT PAIN LEVEL 4-7; Start 01/13/17 at 23:30 Levetiracetam (Keppra Liquid) 1,000 mg DAILY NGT Last administered on 08:52; Admin Dose 1,000 MG; Start 01/14/17 at 09:00 Meclizine HCl (Antivert) 25 mg TID PRN NGT dizziness; Start 01/13/17 at 20:00 Zolpidem Tartrate (Ambien) 5 mg HS PRN NGT INSOMNIA; Start 01/13/17 at 20:00 Metoprolol Tartrate (Lopressor) 12.5 mg BID NGT Last administered on 02/24/17 10:54; Admin Dose 12.5 MG; Start 01/24/17 at 21:00; Status Future Hold Nystatin (Nystatin Susp) 5 ml Q6 PO Last administered on 03/07/17 12:34; Admin Dose 5 ML; Start 01/31/17 at 12:00 Lansoprazole (Prevacid) 30 mg DAILY@06 GTB Last administered on 03/07/17 05:09 ; Admin Dose 30 MG; Start 02/09/17 at 06:00 Multivitamins (Multivitamin) 30 ml DAILY GTB Last administered on 03/07/17 08: 53; Admin Dose 30 ML; Start 02/14/17 at 16:30 Docusate Sodium (Colace Liquid Cup) 100 mg BID GTB Last administered on 08:52; Admin Dose 100 MG; Start 02/14/17 at 21:00 Amiodarone HCl (Cordarone) 200 mg DAILY GTB Last administered on 03/06/17 09: 38; Admin Dose 200 MG; Start 02/19/17 at 09:00 Ascorbic Acid (Vitamin C) 500 mg DAILY GTB Last administered on 03/07/17 08:52 ; Admin Dose 500 MG; Start 02/22/17 at 09:00 Insulin Glargine (Lantus) 56 unit DAILY@20 SC Last administered on 03/06/17 21 :18; Admin Dose 56 UNIT; Start 02/22/17 at 20:00 Insulin Aspart NOVOLOG *MODERATE* ALGORI... Q4 SC Last administered on 12:37; Admin Dose 2 UNIT; Start 02/23/17 at 05:00 Sodium Chloride (NS) 1,000 ml @ 40 mls/hr Q24H IV Last administered on 14:48; Admin Dose 40 MLS/HR; Start 02/23/17 at 14:30 Metoclopramide HCl (Reglan) 5 mg Q6 IV Last administered on 03/07/17 12:35; Admin Dose 5 MG; Start 02/23/17 at 18:00 Apixaban 2.5 mg 2.5 mg BID GTB Last administered on 03/07/17 08:52; Admin Dose 2.5 MG; Start 03/03/17 at 21:00 Cefepime HCl/ Sodium Chloride (Maxipime/NS) 50 ml @ 100 mls/hr Q12 IVPB Last administered on 03/07/17 09:03; Admin Dose 100 MLS/HR; Start 03/04/17 at 12:00 Epoetin Kyler 6000 units 6,000 units MoWeFr@17 SC ; Start 03/07/17 at 17:00 Colistimethate Sodium/Sodium Chloride (Coly-Mycin/NS) 100 ml @ 200 mls/hr Q24H IVPB Last administered on 03/06/17 21:28; Admin Dose 200 MLS/HR; Start at 21:00 TASHIA MCGARRY MD Mar 07, 2017 14:13
[2017-03-07] MEDS: SOD CHLORIDE 0.9% 1,000 ML IV SCH (14:27)
[2017-03-07] MEDS: EPOETIN 3000 UNITS/1 ML INJ (ESRD) SC SCH (17:02)
[2017-03-07] MEDS: INSULIN GLARGINE [LANtus] 3 ML PEN SC SCH (20:00)
[2017-03-07] MEDS: COLISTIMETHATE 100 MG in SOD CHLORIDE 0.9% 100 ML IVPB SCH (21:00)
[2017-03-08] VITALS (36 sets, daily range): BP systolic 80–129; BP diastolic 43–60; PULSE 64–85; RESP 14–27
[2017-03-08] MEDS: INSULIN ASPART [NOVOLOG] 3 ML PEN SC SCH ×6 (01:00→21:00)
[2017-03-08] MEDS: ALBUTEROL 18 GM INHALER INH SCH ×4 (02:00→20:12)
[2017-03-08] MEDS: DEXTROSE 50% 50 ML SYRINGE IV PRN ×3 (05:34→13:59)
[2017-03-08] MEDS: NYSTATIN SUSP 5 ML CUP PO SCH ×4 (06:00→17:09)
[2017-03-08] MEDS: LANSOPRAZOLE 30 MG CAP GTB SCH (06:00)
[2017-03-08] MEDS: METOCLOPRAMIDE 10 MG INJ IV SCH ×4 (06:10→16:57)
[2017-03-08 06:44] LABS: ABNORMAL IP MESSAGE 1; BASOPHILS % 0.2 % (0.0-2.0); EOSINOPHILS # 0.1 10^3/ul (0.0-0.5); EOSINOPHILS % 0.9 % (0.0-7.0); HEMATOCRIT 22.1 % (42.0-52.0); LYMPHOCYTES # 0.7 10^3/ul (0.8-2.9); LYMPHOCYTES % 7.1 % (15.0-51.0); MEAN CORPUSCULAR HEMOGLOBIN 27.6 pg (29.0-33.0); MEAN CORPUSCULAR HGB CONC 30.3 g/dl (32.0-37.0); MEAN CORPUSCULAR VOLUME 90.9 fl (82.0-101.0); MONOCYTE # 0.9 10^3/ul (0.3-0.9); MONOCYTES % 8.8 % (0.0-11.0); NEUTROPHIL # 8.1 10^3/ul (1.6-7.5); NEUTROPHILS % 81.7 % (39.0-77.0); PLATELET COUNT 176 10^3/UL (140-415); POSITIVE DIFF @See below; RED BLOOD COUNT 2.43 10^6/ul (4.70-6.10); RED CELL DISTRIBUTION WIDTH 14.3 % (11.5-14.5); WHITE BLOOD COUNT 9.9 10^3/ul (4.8-10.8)
[2017-03-08] MEDS ORDERED: LIDOCAINE 2%/EPI MPF (SDV) 20 ML VIAL INJ ONE (07:00)
[2017-03-08] MEDS ORDERED: SILVER NITRATE SWAB TOP ONE (07:00)
[2017-03-08 07:10] LABS: CALCIUM 8.2 mg/dl (8.4-10.2); CREATININE 0.66 mg/dl (0.61-1.24); POTASSIUM 3.7 mmol/L (3.5-5.1)
[2017-03-08 07:14] LABS: HEMOGLOBIN 6.7 g/dl (14.0-18.0)
[2017-03-08] MEDS: LEVETIRACETAM (100 MG/ML) 5ML CUP NGT SCH (09:00)
[2017-03-08] MEDS: APIXABAN 5 MG TABLET GTB SCH ×2 (09:00→21:24)
[2017-03-08] MEDS: DOCUSATE SODIUM 10 MG/ML (10ML CUP) GTB SCH ×2 (09:00→21:23)
[2017-03-08] MEDS: MULTIVITAMINS 30 ML CUP GTB SCH (09:00)
[2017-03-08] MEDS: ASCORBIC ACID 500 MG TAB GTB SCH (09:00)
[2017-03-08] MEDS: AMIODARONE 200 MG TAB GTB SCH (09:00)
[2017-03-08] MEDS: COLLAGENASE 30 GM TUBE TOP SCH (09:28)
[2017-03-08] MEDS: CEFEPIME HCL 0.5 GM in SOD CHLORIDE 0.9% 50 ML IVPB SCH ×2 (09:46→21:51)
--- NOTE | 2017-03-08 10:13 | CONS ---
Date/Time of Note Date/Time of Note DATE: 03/08/17 TIME: 10:11 Assessment/Plan Assessment/Plan Chief Complaint/Hosp Course - possible UTI due to carbapenemase-producing klebsiella and pseudomonas - probable colonization of the resp scotty by pseudomonas - probable colonization of the urinary tract by yeast - s/p recurrent sepsis due to pneumonia - treated with cefepime, tobramycin, and caspofungin - s/p recurrent pneumonia due to pseudomonas - s/p sepsis due to possible tracheobronchitis/pneumonia - funguria - thrush, refractory to nystatin - recurrent cardiopulmonary arrest on 12/09/2016 and on 01/08/2017 - hypoxic respiratory failure, intubated for the 2nd time on 12/12/2016; extubated 12/18/2016; re-intubated for the 3rd time 01/08/2017, s/p tracheostomy 06/2017 - bleeding from trach site - resolved - acute on chronic anemia due to acute blood loss, requiring blood transfusion - 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 Blood cultures from HD catheter on 12/13/2016 are negative to date. 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 MRI on 12/06/2016 and bone scan on showed early OM of the distal phalanx of the left great toe and left fourth proximal phalanx. superficial swab grew inna only. At present, no e/o persistent infection - recurrent pleural effusion - s/p right pleural effusion s/p thoracentesis with .9L removed on 12/16/2016; ( Note: there is no pleural fluid cx since orders were placed after Right thoracentesis, and Left thoracentesis was not performed on 12/17/16 d/t insufficient fluid) - ARANZA on CKD that progressed to ESRD and started on HD from 12/09/2016 - oliguria - improved - A fib -> PAF - small nonreversible perfusion abnormality in the inferoapical and inferior carver; EF 36% per Lexiscan 12/24/2016 - severe , EF 40-45% per TTE 12/17/16 - DM - Hgb A1c 8.7% - HTN associated with DM - acute encephalopathy with anoxic brain injury - unstageable decubitus ulcer of coccyx, no evidence of infection - dysphagia s/p G-tube placement 02/08/2017 NOTE: Pt completed 6 weeks (12/03/2016-01/15/2017) of antibiotics to treat early OM of the distal phalanx of the left great toe and left fourth proximal phalanx ; s/p pip/tazo 12/03/16-01/08/17; linezolid 01/08/17-01/20/17; caspofungin 01/12/17-01/21/17 and 02/04/17-02/17/17; tobramycin 02/04/2017- 02/15/17 for pseudomonas; cefepime 02/02/17-02/18/17 recommendations: - pending results: sensitivity of Pt's carbapenemase-producing klebsiella for colistin, TGC, ceftaz/miranda, ceftaroline/tazo (the sample was sent on 03/07/2017) - continue IV cefepime for pseudomonas in urine culture (03/04/2017), plan for 7 days. It may be covered by colistin too - continue IV colistin for carbapenemase-producing kleb (03/06/2017-), plan for 7 days - wound care of the coccyx and upper back - contact isolation for carbapenemase-producing klebsiella management d/w Pt's RN Problems: Consultation Date/Type/Reason Admit Date/Time Dec 02, 2016 at 21:01 Initial Consult Date 12/03/16 Type of Consultation: ID Referring Provider: VIET PARKER MD 24 HR Interval Summary Free Text/Dictation Hgb dropped Subjective hx not possible: pt non-verbal Exam/Review of Systems Vital Signs Vitals Vital Signs Date Time Temp Pulse Resp B/P Pulse Ox O2 Delivery O2 Flow Rate FiO2 03/08/17 08:43 77 03/08/17 08:42 98.0 17 129/60 97 03/08/17 07:25 30 03/06/17 20:00 Mechanical Ventilator Intake and Output 03/07/17 03/07/17 03/08/17 15:00 23:00 07:00 Intake Total 550 ml 1320 ml 1005 ml Output Total 1900 ml 300 ml 500 ml Balance -1350 ml 1020 ml 505 ml Exam Constitutional: frail, non-verbal Psych: confusion Head: atraumatic, normocephalic Eyes: nl conjunctiva, nl lids ENMT: nl external ears & nose, nl nasal mucosa & septum Neck: other (trach, no bleeding noted) Respiratory: crackles/rales Cardiovascular: nl pulses, regular rate and rhythm Gastrointestinal: non-tender, other (GT in place), soft Genitourinary - Male: other (external catheter in place) Musculoskeletal: nl extremities to inspection Extremities: No edema Neurological: lethargic Skin: other (coccyx: stage III decubitus, non-purulent and non-bleeding) Results Result Diagram: 03/08/17 0609 03/08/17 0609 Results 24 hrs Laboratory Tests Test 03/07/17 12:34 03/07/17 17:04 03/07/17 21:16 03/07/17 22:27 Bedside Glucose 172 165 153 157 Test 03/08/17 01:54 03/08/17 05:22 03/08/17 05:54 03/08/17 06:09 Bedside Glucose 113 52 L 98 White Blood Count 9.9 Red Blood Count 2.43 L Hemoglobin 6.7 *L Hematocrit 22.1 L Mean Corpuscular Volume 90.9 Mean Corpuscular Hemoglobin 27.6 L Mean Corpuscular Hemoglobin Concent 30.3 L Red Cell Distribution Width 14.3 Platelet Count 176 Mean Platelet Volume 10.0 Neutrophils % 81.7 H Lymphocytes % 7.1 L Monocytes % 8.8 Eosinophils % 0.9 Basophils % 0.2 Nucleated Red Blood Cells % 0.0 Neutrophils # 8.1 H Lymphocytes # 0.7 L Monocytes # 0.9 Eosinophils # 0.1 Basophils # 0.0 Nucleated Red Blood Cells # 0.0 Sodium Level 145 H Potassium Level 3.7 Chloride Level 100 Carbon Dioxide Level 34 H Anion Gap 15 Blood Urea Nitrogen 35 #H Creatinine 0.66 Glucose Level 78 Calcium Level 8.2 L Test 03/08/17 09:44 03/08/17 09:56 Bedside Glucose 45 *L 180 Medications Medications Current Medications Ondansetron HCl (Zofran Inj) 4 mg Q6H PRN IV NAUSEA AND/OR VOMITING Last administered on 02/23/17t 12:49; Admin Dose 4 MG; Start 12/02/16 at 22:30 Miscellaneous Information 1 ea NOTE XX ; Start 12/02/16 at 23:00 Glucose (Glutose) 15 gm Q15M PRN PO DECREASED GLUCOSE; Start 12/02/16 at 23:00 Glucose (Glutose) 22.5 gm Q15M PRN PO DECREASED GLUCOSE; Start 12/02/16 at 23: 00 Dextrose (D50w Syringe) 25 ml Q15M PRN IV DECREASED GLUCOSE Last administered on 03/08/17 05:34; Admin Dose 25 ML; Start 12/02/16 at 23:00 Dextrose (D50w Syringe) 50 ml Q15M PRN IV DECREASED GLUCOSE Last administered on 03/08/17 09:48; Admin Dose 50 ML; Start 12/02/16 at 23:00 Glucagon (Glucagen) 1 mg Q15M PRN IM DECREASED GLUCOSE; Start 12/02/16 at 23:00 Glucose (Glutose) 15 gm Q15M PRN BUCCAL DECREASED GLUCOSE; Start 12/02/16 at 23 :00 Acetaminophen (Tylenol Supp) 650 mg Q6H PRN [place] ELEVATED TEMPERATURE Last administered on 01/13/17 20:32; Admin Dose 650 MG; Start 12/09/16 at 17:00 Hydralazine HCl (Apresoline) 10 mg Q6H PRN IV SBP>150mm hg Last administered on 12/19/16 08:50; Admin Dose 10 MG; Start 12/11/16 at 10:30 Morphine Sulfate (morphine) 2 mg Q2H PRN IV PAIN LEVEL 4-7; Start 12/13/16 at 10 :00 Collagenase (Santyl) 1 applic DAILY TOP Last administered on 03/08/17 09:28; Admin Dose 1 APPLIC; Start 01/04/17 at 09:00 Metoprolol Tartrate (Lopressor) 5 mg Q4 PRN IV FOR H.R>110; Start 01/12/17 at 17:30 Acetaminophen (Tylenol Liquid) 650 mg Q6H PRN NGT PAIN AND OR ELEVATED TEMP Last administered on 03/06/17 21:32; Admin Dose 650 MG; Start 01/13/17 at 23:30 Acetaminophen/ Hydrocodone Bitart ([place] (5/325)) 1 tab Q6H PRN NGT PAIN LEVEL 4-7; Start 01/13/17 at 23:30 Levetiracetam (Keppra Liquid) 1,000 mg DAILY NGT Last administered on 08:52; Admin Dose 1,000 MG; Start 01/14/17 at 09:00 Meclizine HCl (Antivert) 25 mg TID PRN NGT dizziness; Start 01/13/17 at 20:00 Zolpidem Tartrate (Ambien) 5 mg HS PRN NGT INSOMNIA; Start 01/13/17 at 20:00 Metoprolol Tartrate (Lopressor) 12.5 mg BID NGT Last administered on 02/24/17 10:54; Admin Dose 12.5 MG; Start 01/24/17 at 21:00; Status Future Hold Nystatin (Nystatin Susp) 5 ml Q6 PO Last administered on 03/08/17 00:00; Admin Dose 5 ML; Start 01/31/17 at 12:00 Lansoprazole (Prevacid) 30 mg DAILY@06 GTB Last administered on 03/07/17 05:09 ; Admin Dose 30 MG; Start 02/09/17 at 06:00 Multivitamins (Multivitamin) 30 ml DAILY GTB Last administered on 03/07/17 08: 53; Admin Dose 30 ML; Start 02/14/17 at 16:30 Docusate Sodium (Colace Liquid Cup) 100 mg BID GTB Last administered on 21:00; Admin Dose 100 MG; Start 02/14/17 at 21:00 Amiodarone HCl (Cordarone) 200 mg DAILY GTB Last administered on 03/06/17 09: 38; Admin Dose 200 MG; Start 02/19/17 at 09:00 Ascorbic Acid (Vitamin C) 500 mg DAILY GTB Last administered on 03/07/17 08:52 ; Admin Dose 500 MG; Start 02/22/17 at 09:00 Insulin Glargine (Lantus) 56 unit DAILY@20 SC Last administered on 03/07/17 20 :00; Admin Dose 56 UNIT; Start 02/22/17 at 20:00 Insulin Aspart NOVOLOG *MODERATE* ALGORI... Q4 SC Last administered on 17:06; Admin Dose 2 UNIT; Start 02/23/17 at 05:00 Sodium Chloride (NS) 1,000 ml @ 40 mls/hr Q24H IV Last administered on 14:48; Admin Dose 40 MLS/HR; Start 02/23/17 at 14:30 Metoclopramide HCl (Reglan) 5 mg Q6 IV Last administered on 03/08/17 06:10; Admin Dose 5 MG; Start 02/23/17 at 18:00 Apixaban 2.5 mg 2.5 mg BID GTB Last administered on 03/07/17 21:00; Admin Dose 2.5 MG; Start 03/03/17 at 21:00 Cefepime HCl/ Sodium Chloride (Maxipime/NS) 50 ml @ 100 mls/hr Q12 IVPB Last administered on 03/08/17 09:46; Admin Dose 100 MLS/HR; Start 03/04/17 at 12:00 Epoetin Kyler 6000 units 6,000 units MoWeFr@17 SC Last administered on 17:02; Admin Dose 6,000 UNITS; Start 03/07/17 at 17:00 Colistimethate Sodium/Sodium Chloride (Coly-Mycin/NS) 100 ml @ 200 mls/hr Q24H IVPB Last administered on 03/07/17 21:00; Admin Dose 200 MLS/HR; Start at 21:00 CHRISTY LOPEZ M.D. Mar 08, 2017 10:13
--- NOTE | 2017-03-08 12:56 | PN ---
Date/Time of Note Date/Time of Note DATE: 03/08/17 TIME: 12:51 Assessment/Plan VTE Prophylaxis VTE Prophylaxis Intervention: SCD's Lines/Catheters IV [facility] Peripheral IV Assessment/Plan Chief Complaint/Hosp Course Patient is currently n.p.o. for possible debridement, patient has an episode of hypoglycemia today in the morning status post D50 , patient undergoing blood transfusion for hemoglobin of 6.7, will start IV fluid with dextrose while patient is n.p.o. ASSESSMENT AND PLAN: -Recurrent UTI, continue antibiotics per ID. - Sacral decubitus ulcer, DrGurpreet Brown is following in surgical consultation. - Anemia of chronic disease, continue Epogen, continue to monitor H&H, transfuse as needed. - Possible recurrent sepsis, resolving. Continue antibiotics per ID. Dr Celena pritchard is following infection disease consultation. - Dysphagia. S/p G-tube by Dr. Smith. Continue G-tube feeding, monitor residual. - Status post cardiopulmonary arrest on 12/09/2016 and 01/08/2017. Continue ventilatory support. - Anoxic encephalopathy. Continue Keppra. - Status post tracheostomy on 01/23/2017. Continue tracheostomy care. - End-stage renal disease. Continue hemodialysis per nephrology. - Paroxysmal atrial fibrillation. Continue Eliquis. - Diabetes mellitus type 2. Continue Lantus and NovoLog with sliding scale coverage with Accu-Cheks q. 4 hours. - Diabetic foot ulcer. Continue current wound care. - Osteomyelitis of the distal phalanx of the great left toe. Completed treatment for antibiotics. Further recommendations based on clinical course. Plan of care discussed with Dr. Heredia. Problems: Exam/Review of Systems Vital Signs Vitals Vital Signs Date Time Temp Pulse Resp B/P Pulse Ox O2 Delivery O2 Flow Rate FiO2 03/08/17 11:38 98.6 76 18 96/51 97 03/08/17 11:10 30 03/06/17 20:00 Mechanical Ventilator Intake and Output 03/07/17 03/07/17 03/08/17 15:00 23:00 07:00 Intake Total 550 ml 1320 ml 1005 ml Output Total 1900 ml 300 ml 500 ml Balance -1350 ml 1020 ml 505 ml Exam Constitutional: non-verbal Head: atraumatic, normocephalic ENMT: other (Nasogastric tube) Neck: other (Tracheostomy), supple Respiratory: diminished breath sounds Cardiovascular: nl pulses Gastrointestinal: non-tender, soft, GT Neurological: unresponsive Results Result Diagram: 03/08/17 0609 03/08/17 0609 Results 24 hrs Laboratory Tests Test 03/07/17 17:04 03/07/17 21:16 03/07/17 22:27 03/08/17 01:54 Bedside Glucose 165 153 157 113 Test 03/08/17 05:22 03/08/17 05:54 03/08/17 06:09 03/08/17 09:44 Bedside Glucose 52 L 98 45 *L White Blood Count 9.9 Red Blood Count 2.43 L Hemoglobin 6.7 *L Hematocrit 22.1 L Mean Corpuscular Volume 90.9 Mean Corpuscular Hemoglobin 27.6 L Mean Corpuscular Hemoglobin Concent 30.3 L Red Cell Distribution Width 14.3 Platelet Count 176 Mean Platelet Volume 10.0 Neutrophils % 81.7 H Lymphocytes % 7.1 L Monocytes % 8.8 Eosinophils % 0.9 Basophils % 0.2 Nucleated Red Blood Cells % 0.0 Neutrophils # 8.1 H Lymphocytes # 0.7 L Monocytes # 0.9 Eosinophils # 0.1 Basophils # 0.0 Nucleated Red Blood Cells # 0.0 Sodium Level 145 H Potassium Level 3.7 Chloride Level 100 Carbon Dioxide Level 34 H Anion Gap 15 Blood Urea Nitrogen 35 #H Creatinine 0.66 Glucose Level 78 Calcium Level 8.2 L Test 03/08/17 09:56 Bedside Glucose 180 Medications Medications Current Medications Ondansetron HCl (Zofran Inj) 4 mg Q6H PRN IV NAUSEA AND/OR VOMITING Last administered on 02/23/17 12:49; Admin Dose 4 MG; Start 12/02/16 at 22:30 Miscellaneous Information 1 ea NOTE XX ; Start 12/02/16 at 23:00 Glucose (Glutose) 15 gm Q15M PRN PO DECREASED GLUCOSE; Start 12/02/16 at 23:00 Glucose (Glutose) 22.5 gm Q15M PRN PO DECREASED GLUCOSE; Start 12/02/16 at 23: 00 Dextrose (D50w Syringe) 25 ml Q15M PRN IV DECREASED GLUCOSE Last administered on 03/08/17 05:34; Admin Dose 25 ML; Start 12/02/16 at 23:00 Dextrose (D50w Syringe) 50 ml Q15M PRN IV DECREASED GLUCOSE Last administered on 03/08/17 09:48; Admin Dose 50 ML; Start 12/02/16 at 23:00 Glucagon (Glucagen) 1 mg Q15M PRN IM DECREASED GLUCOSE; Start 12/02/16 at 23:00 Glucose (Glutose) 15 gm Q15M PRN BUCCAL DECREASED GLUCOSE; Start 12/02/16 at 23 :00 Acetaminophen (Tylenol Supp) 650 mg Q6H PRN [place] ELEVATED TEMPERATURE Last administered on 01/13/17 20:32; Admin Dose 650 MG; Start 12/09/16 at 17:00 Hydralazine HCl (Apresoline) 10 mg Q6H PRN IV SBP>150mm hg Last administered on 12/19/16 08:50; Admin Dose 10 MG; Start 12/11/16 at 10:30 Morphine Sulfate (morphine) 2 mg Q2H PRN IV PAIN LEVEL 4-7; Start 12/13/16 at 10 :00 Collagenase (Santyl) 1 applic DAILY TOP Last administered on 03/08/17 09:28; Admin Dose 1 APPLIC; Start 01/04/17 at 09:00 Metoprolol Tartrate (Lopressor) 5 mg Q4 PRN IV FOR H.R>110; Start 01/12/17 at 17:30 Acetaminophen (Tylenol Liquid) 650 mg Q6H PRN NGT PAIN AND OR ELEVATED TEMP Last administered on 03/06/17 21:32; Admin Dose 650 MG; Start 01/13/17 at 23:30 Acetaminophen/ Hydrocodone Bitart ([place] (5/325)) 1 tab Q6H PRN NGT PAIN LEVEL 4-7; Start 01/13/17 at 23:30 Levetiracetam (Keppra Liquid) 1,000 mg DAILY NGT Last administered on 08:52; Admin Dose 1,000 MG; Start 01/14/17 at 09:00 Meclizine HCl (Antivert) 25 mg TID PRN NGT dizziness; Start 01/13/17 at 20:00 Zolpidem Tartrate (Ambien) 5 mg HS PRN NGT INSOMNIA; Start 01/13/17 at 20:00 Metoprolol Tartrate (Lopressor) 12.5 mg BID NGT Last administered on 02/24/17 10:54; Admin Dose 12.5 MG; Start 01/24/17 at 21:00; Status Future Hold Nystatin (Nystatin Susp) 5 ml Q6 PO Last administered on 03/08/17 00:00; Admin Dose 5 ML; Start 01/31/17 at 12:00 Lansoprazole (Prevacid) 30 mg DAILY@06 GTB Last administered on 03/07/17 05:09 ; Admin Dose 30 MG; Start 02/09/17 at 06:00 Multivitamins (Multivitamin) 30 ml DAILY GTB Last administered on 03/07/17 08: 53; Admin Dose 30 ML; Start 02/14/17 at 16:30 Docusate Sodium (Colace Liquid Cup) 100 mg BID GTB Last administered on 21:00; Admin Dose 100 MG; Start 02/14/17 at 21:00 Amiodarone HCl (Cordarone) 200 mg DAILY GTB Last administered on 03/06/17 09: 38; Admin Dose 200 MG; Start 02/19/17 at 09:00 Ascorbic Acid (Vitamin C) 500 mg DAILY GTB Last administered on 03/07/17 08:52 ; Admin Dose 500 MG; Start 02/22/17 at 09:00 Insulin Glargine (Lantus) 56 unit DAILY@20 SC Last administered on 03/07/17 20 :00; Admin Dose 56 UNIT; Start 02/22/17 at 20:00 Insulin Aspart NOVOLOG *MODERATE* ALGORI... Q4 SC Last administered on 17:06; Admin Dose 2 UNIT; Start 02/23/17 at 05:00 Sodium Chloride (NS) 1,000 ml @ 40 mls/hr Q24H IV Last administered on 14:48; Admin Dose 40 MLS/HR; Start 02/23/17 at 14:30 Metoclopramide HCl (Reglan) 5 mg Q6 IV Last administered on 03/08/17 06:10; Admin Dose 5 MG; Start 02/23/17 at 18:00 Apixaban 2.5 mg 2.5 mg BID GTB Last administered on 03/07/17 21:00; Admin Dose 2.5 MG; Start 03/03/17 at 21:00 Cefepime HCl/ Sodium Chloride (Maxipime/NS) 50 ml @ 100 mls/hr Q12 IVPB Last administered on 03/08/17 09:46; Admin Dose 100 MLS/HR; Start 03/04/17 at 12:00 Epoetin Kyler 6000 units 6,000 units MoWeFr@17 SC Last administered on 17:02; Admin Dose 6,000 UNITS; Start 03/07/17 at 17:00 Colistimethate Sodium/Sodium Chloride (Coly-Mycin/NS) 100 ml @ 200 mls/hr Q24H IVPB Last administered on 03/07/17 21:00; Admin Dose 200 MLS/HR; Start at 21:00 KIMBERLY NOYOLA Mar 08, 2017 12:56
--- NOTE | 2017-03-08 12:57 | PN ---
DATE: SUBJECTIVE DATA: No complaint. Actually patient is not communicative. His eyes are closed. The patient has a known case of anoxic encephalopathy. OBJECTIVE DATA: VITAL SIGNS: The patient's eyes are closed. The patient is on a ventilator. . Temperature 97.9, heart rate 87, respiration 18, blood pressure 119/61, saturation 98, . Trach fitting is in place and external Mol[place] is in place. ABDOMEN: Abdomen is soft. I found the patient vomited yesterdays, but today has tolerated the tube feeding. He also had a bowel movement yesterday. EXTREMITIES: Legs, no calf tenderness, no pitting edema. _Sacro-Coccygeal wound the same as before. covered by black eschar. Size 8 by 9 centimeters. . ASSESSMENT AND PLAN: This is a 66-year-old gentleman who was admitted for osteomyelitis of the left great toe and in the process of treatment. Some day, patient had cardiopulmonary arrest and he was admitted to ICU and he also about a month later had another cardiopulmonary arrest. The patient is on the ventilator, dependent on the ventilator. The patient has PEG tube for feeding (the diagnosis of anoxic encephalopathy has been entertained for this patient). He has many other problems including D.M.. The patient is Eliquis 2-1/2 mg b.i.d. because of atrial fibrillation. The patient has_, possible infection underneath.the Sacrococcygeal eschar. Recommendation is to proceed with debridement. Car Mechanic has okayed the patient for procedure, though with high risk because of the severe atrial stenosis. I am going to call his son right now. Per patent attorney, we have to keep the patient off the Eliquis for at least 48 hours. Therefore, the last dose is going to be today, somewhere around 1:00 or 2:00 and then stop it. None on Tuesday, no more on Tuesday to get the patient ready for operation on Tuesday. Dictated By: Kaleb Ureña MD /bharath/darryl /Document#: [id number] JHONATAN
[2017-03-08] MEDS: D5W-0.45 NACL + KCL 20 MEQ 1,000 ML IV SCH (13:33)
--- NOTE | 2017-03-08 13:52 | CONS ---
Date/Time of Note Date/Time of Note DATE: 03/08/17 TIME: 13:50 Assessment/Plan Assessment/Plan Chief Complaint/Hosp Course IMPRESSION: 1. Atrial fibrillation-Having episodes of PAF with reasonable rate control. Currently remains in SR. Had pause approximately 4 during suctioning. No recurrent pause since holding of BB 2. Hypotension-overall improved and stable 3. Abnormal electrocardiogram with inferolateral T-wave inversions. 4. Respiratory failure-s/p trach placement 5. Nonhealing toe ulceration-vascular following 6. Peripheral arterial disease by arterial ultrasound of the lower extremities this admission. 7. Diabetes mellitus. 8. Fevers. 9. Positive troponin-downtrended 10.Bradycardia-improved/stable 11.-severe by echo 12.Cardiomyopathy-EF 40-45% by echo/36% by stress with no ischemia but positive scar. EF <30% by echo post arrest 13.Encephalopathy-anoxic 14. s/p cardiopulmonary arrest 01/08 15. Pre-op-for debridemnt of decubitis ulcer- Patient at this time has no definite cardiac contraindication to proceeding to OR for debridement but is at high risk for CV complications due to severe and cardiomyopathy 16. Hypernatremia Recc: -Tele -serial ecg -HD for volume removal as tolerated ongoing today -Continue PO amio in attempt to maintain SR, daily and follow for any recurrent pauses -Will hold on afterload reduction given severe and thus fixed afterload at valve orifice -Continue to hold BB and follow for recurrent pause -Eliquis now again held for possible debridement Problems: Consultation Date/Type/Reason Admit Date/Time Dec 02, 2016 at 21:01 Initial Consult Date 12/03/16 Type of Consultation: cardiology Reason for Consultation PAF//cardiomyopathy Referring Provider: VIET PARKER MD Exam/Review of Systems Vital Signs Vitals Vital Signs Date Time Temp Pulse Resp B/P Pulse Ox O2 Delivery O2 Flow Rate FiO2 03/08/17 13:09 81 03/08/17 11:38 98.6 18 96/51 97 03/08/17 11:10 30 03/06/17 20:00 Mechanical Ventilator Intake and Output 03/07/17 03/07/17 03/08/17 15:00 23:00 07:00 Intake Total 550 ml 1320 ml 1005 ml Output Total 1900 ml 300 ml 500 ml Balance -1350 ml 1020 ml 505 ml Exam Review of Systems: CONSTITUTIONAL: No fevers, chills. PULMONARY: No sob CARDIOVASCULAR: No chest pain/palpitations GASTROINTESTINAL: No nausea/vomiting. GENITOURINARY: No hematuria/dysuria. MUSCULOSKELETAL: No myagias/arthalgias. PSYCHIATRIC: The patient denies depression. NEUROLOGIC: No weakness Constitutional: alert Psych: no complaints Head: normocephalic ENMT: mucosa pink and moist Neck: jvd (9 cm water), supple Respiratory: diminished breath sounds (at bases/B) Cardiovascular: regular rate and rhythm Gastrointestinal: non-tender, soft, No rebound or guarding Musculoskeletal: muscle weakness (generalized) Extremities: edema (none) Neurological: other (encephalopathic) Results Result Diagram: 03/08/17 0609 03/08/17 0609 Results 24 hrs Laboratory Tests Test 03/07/17 17:04 03/07/17 21:16 03/07/17 22:27 03/08/17 01:54 Bedside Glucose 165 153 157 113 Test 03/08/17 05:22 03/08/17 05:54 03/08/17 06:09 03/08/17 09:44 Bedside Glucose 52 L 98 45 *L White Blood Count 9.9 Red Blood Count 2.43 L Hemoglobin 6.7 *L Hematocrit 22.1 L Mean Corpuscular Volume 90.9 Mean Corpuscular Hemoglobin 27.6 L Mean Corpuscular Hemoglobin Concent 30.3 L Red Cell Distribution Width 14.3 Platelet Count 176 Mean Platelet Volume 10.0 Neutrophils % 81.7 H Lymphocytes % 7.1 L Monocytes % 8.8 Eosinophils % 0.9 Basophils % 0.2 Nucleated Red Blood Cells % 0.0 Neutrophils # 8.1 H Lymphocytes # 0.7 L Monocytes # 0.9 Eosinophils # 0.1 Basophils # 0.0 Nucleated Red Blood Cells # 0.0 Sodium Level 145 H Potassium Level 3.7 Chloride Level 100 Carbon Dioxide Level 34 H Anion Gap 15 Blood Urea Nitrogen 35 #H Creatinine 0.66 Glucose Level 78 Calcium Level 8.2 L Test 03/08/17 09:56 03/08/17 13:30 Bedside Glucose 180 43 *L Medications Medications Current Medications Ondansetron HCl (Zofran Inj) 4 mg Q6H PRN IV NAUSEA AND/OR VOMITING Last administered on 02/23/17 12:49; Admin Dose 4 MG; Start 12/02/16 at 22:30 Miscellaneous Information 1 ea NOTE XX ; Start 12/02/16 at 23:00 Glucose (Glutose) 15 gm Q15M PRN PO DECREASED GLUCOSE; Start 12/02/16 at 23:00 Glucose (Glutose) 22.5 gm Q15M PRN PO DECREASED GLUCOSE; Start 12/02/16 at 23: 00 Dextrose (D50w Syringe) 25 ml Q15M PRN IV DECREASED GLUCOSE Last administered on 03/08/17 05:34; Admin Dose 25 ML; Start 12/02/16 at 23:00 Dextrose (D50w Syringe) 50 ml Q15M PRN IV DECREASED GLUCOSE Last administered on 03/08/17 09:48; Admin Dose 50 ML; Start 12/02/16 at 23:00 Glucagon (Glucagen) 1 mg Q15M PRN IM DECREASED GLUCOSE; Start 12/02/16 at 23:00 Glucose (Glutose) 15 gm Q15M PRN BUCCAL DECREASED GLUCOSE; Start 12/02/16 at 23 :00 Acetaminophen (Tylenol Supp) 650 mg Q6H PRN [place] ELEVATED TEMPERATURE Last administered on 01/13/17 20:32; Admin Dose 650 MG; Start 12/09/16 at 17:00 Hydralazine HCl (Apresoline) 10 mg Q6H PRN IV SBP>150mm hg Last administered on 12/19/16 08:50; Admin Dose 10 MG; Start 12/11/16 at 10:30 Morphine Sulfate (morphine) 2 mg Q2H PRN IV PAIN LEVEL 4-7; Start 12/13/16 at 10 :00 Collagenase (Santyl) 1 applic DAILY TOP Last administered on 03/08/17 09:28; Admin Dose 1 APPLIC; Start 01/04/17 at 09:00 Metoprolol Tartrate (Lopressor) 5 mg Q4 PRN IV FOR H.R>110; Start 01/12/17 at 17:30 Acetaminophen (Tylenol Liquid) 650 mg Q6H PRN NGT PAIN AND [place] ELEVATED TEMP Last administered on 03/06/17 21:32; Admin Dose 650 MG; Start 01/13/17 at 23:30 Acetaminophen/ Hydrocodone Bitart ([place] (5/325)) 1 tab Q6H PRN NGT PAIN LEVEL 4-7; Start 01/13/17 at 23:30 Levetiracetam (Keppra Liquid) 1,000 mg DAILY NGT Last administered on 08:52; Admin Dose 1,000 MG; Start 01/14/17 at 09:00 Meclizine HCl (Antivert) 25 mg TID PRN NGT dizziness; Start 01/13/17 at 20:00 Zolpidem Tartrate (Ambien) 5 mg HS PRN NGT INSOMNIA; Start 01/13/17 at 20:00 Metoprolol Tartrate (Lopressor) 12.5 mg BID NGT Last administered on 02/24/17 10:54; Admin Dose 12.5 MG; Start 01/24/17 at 21:00; Status Future Hold Nystatin (Nystatin Susp) 5 ml Q6 PO Last administered on 03/08/17 00:00; Admin Dose 5 ML; Start 01/31/17 at 12:00 Lansoprazole (Prevacid) 30 mg DAILY@06 GTB Last administered on 03/07/17 05:09 ; Admin Dose 30 MG; Start 02/09/17 at 06:00 Multivitamins (Multivitamin) 30 ml DAILY GTB Last administered on 03/07/17 08: 53; Admin Dose 30 ML; Start 02/14/17 at 16:30 Docusate Sodium (Colace Liquid Cup) 100 mg BID GTB Last administered on 21:00; Admin Dose 100 MG; Start 02/14/17 at 21:00 Amiodarone HCl (Cordarone) 200 mg DAILY GTB Last administered on 03/06/17 09: 38; Admin Dose 200 MG; Start 02/19/17 at 09:00 Ascorbic Acid (Vitamin C) 500 mg DAILY GTB Last administered on 03/07/17 08:52 ; Admin Dose 500 MG; Start 02/22/17 at 09:00 Insulin Glargine (Lantus) 56 unit DAILY@20 SC Last administered on 03/07/17 20 :00; Admin Dose 56 UNIT; Start 02/22/17 at 20:00 Insulin Aspart (Novolog Insulin Pen) NOVOLOG *MODERATE* ALGORI... Q4 SC Last administered on 03/07/17 17:06; Admin Dose 2 UNIT; Start 02/23/17 at 05:00 Metoclopramide HCl (Reglan) 5 mg Q6 IV Last administered on 03/08/17 06:10; Admin Dose 5 MG; Start 02/23/17 at 18:00 Apixaban 2.5 mg 2.5 mg BID GTB Last administered on 03/07/17 21:00; Admin Dose 2.5 MG; Start 03/03/17 at 21:00 Cefepime HCl/ Sodium Chloride (Maxipime/NS) 50 ml @ 100 mls/hr Q12 IVPB Last administered on 03/08/17 09:46; Admin Dose 100 MLS/HR; Start 03/04/17 at 12:00 Epoetin Kyler 6000 units 6,000 units MoWeFr@17 SC Last administered on 17:02; Admin Dose 6,000 UNITS; Start 03/07/17 at 17:00 Colistimethate Sodium 100 mg/ Sodium Chloride 100 ml @ 200 mls/hr Q24H IVPB Last administered on 03/07/17 21:00; Admin Dose 200 MLS/HR; Start 03/06/17 at 21:00 Potassium Chloride/Dextrose/ Sod Cl (D5-1/2ns + KCl 20 Meq) 1,000 ml @ 50 mls/ hr Q20H IV Last administered on 03/08/17 13:33; Admin Dose 50 MLS/HR; Start at 13:00 VICENTE LESLIE Mar 08, 2017 13:52
[2017-03-08 14:52] LABS: ABNORMAL IP MESSAGE 1; BASOPHILS % 0.2 % (0.0-2.0); EOSINOPHILS # 0.1 10^3/ul (0.0-0.5); EOSINOPHILS % 0.5 % (0.0-7.0); HEMATOCRIT 25.1 % (42.0-52.0); LYMPHOCYTES # 0.6 10^3/ul (0.8-2.9); LYMPHOCYTES % 5.5 % (15.0-51.0); MEAN CORPUSCULAR HEMOGLOBIN 28.8 pg (29.0-33.0); MEAN CORPUSCULAR HGB CONC 31.9 g/dl (32.0-37.0); MEAN CORPUSCULAR VOLUME 90.3 fl (82.0-101.0); MEAN PLATELET VOLUME 9.8 fl (7.4-10.4); MONOCYTES % 9.4 % (0.0-11.0); NEUTROPHIL # 8.5 10^3/ul (1.6-7.5); NEUTROPHILS % 83.1 % (39.0-77.0); PLATELET COUNT 167 10^3/UL (140-415); POSITIVE DIFF @See below; RED BLOOD COUNT 2.78 10^6/ul (4.70-6.10); RED CELL DISTRIBUTION WIDTH 14.6 % (11.5-14.5); WHITE BLOOD COUNT 10.2 10^3/ul (4.8-10.8)
--- NOTE | 2017-03-08 17:20 | CONS ---
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 Blood cultures from HD catheter on 12/13/2016 are negative to date. 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 MRI on 12/06/2016 and bone scan on showed early OM of the distal phalanx of the left great toe and left fourth proximal phalanx. superficial swab grew inna only - s/p right pleural effusion s/p thoracentesis with .9L removed on 12/16/2016 - severe , EF 40-45% per TTE 12/17/16 - DM - Hgb A1c 8.7% - HTN associated with DM - sp Tracheostomy site bleeding Plan: will conitnue HD on MWF - HD ordered for tomorrow continue epogen for anemia awaiting debridement of wound - possible plan on Tuesday s/p Tracheostomy, pt will need HD palcement at a unit where they can do a HD for pt with tracheostomy and PEG tube placemen t- case sealer worked on it pt has severe , very labile BP sometimes with HD will continue to follow up for HD need Consultation Date/Type/Reason Admit Date/Time Dec 02, 2016 at 21:01 Initial Consult Date Type of Consultation: NEPHROLOGY Reason for Consultation ESRD on HD Referring Provider: VIET PARKER MD 24 HR Interval Summary Free Text/Dictation plan for HD tomorrow, no acute events, awaiting debridement Exam/Review of Systems Vital Signs Vitals Vital Signs Date Time Temp Pulse Resp B/P Pulse Ox O2 Delivery O2 Flow Rate FiO2 03/08/17 16:46 75 03/08/17 15:36 98.6 18 129/59 96 7/25/17 15:15 30 03/06/17 20:00 Mechanical Ventilator Intake and Output 03/07/17 03/07/17 03/08/17 15:00 23:00 07:00 Intake Total 550 ml 1320 ml 1005 ml Output Total 1900 ml 300 ml 500 ml Balance -1350 ml 1020 ml 505 ml Exam Constitutional: non-verbal Psych: confusion Head: atraumatic, normocephalic+ tracheostomy Respiratory: clear to auscultation, normal air movement Cardiovascular: nl pulses, regular rate and rhythm Gastrointestinal: non-tender, soft Extremities: No edema Neurological: lethargic Skin: rash or lesions (decubitus ulcer is clean, non-purulent, well vascularized tissue) Results Result Diagram: 03/08/17 1437 03/08/17 0609 Results 24 hrs Laboratory Tests Test 03/07/17 21:16 03/07/17 22:27 03/08/17 01:54 03/08/17 05:22 Bedside Glucose 153 157 113 52 L Test 03/08/17 05:54 03/08/17 06:09 03/08/17 09:44 03/08/17 09:56 Bedside Glucose 98 45 *L 180 White Blood Count 9.9 Red Blood Count 2.43 L Hemoglobin 6.7 *L Hematocrit 22.1 L Mean Corpuscular Volume 90.9 Mean Corpuscular Hemoglobin 27.6 L Mean Corpuscular Hemoglobin Concent 30.3 L Red Cell Distribution Width 14.3 Platelet Count 176 Mean Platelet Volume 10.0 Neutrophils % 81.7 H Lymphocytes % 7.1 L Monocytes % 8.8 Eosinophils % 0.9 Basophils % 0.2 Nucleated Red Blood Cells % 0.0 Neutrophils # 8.1 H Lymphocytes # 0.7 L Monocytes # 0.9 Eosinophils # 0.1 Basophils # 0.0 Nucleated Red Blood Cells # 0.0 Sodium Level 145 H Potassium Level 3.7 Chloride Level 100 Carbon Dioxide Level 34 H Anion Gap 15 Blood Urea Nitrogen 35 #H Creatinine 0.66 Glucose Level 78 Calcium Level 8.2 L Test 03/08/17 13:30 03/08/17 13:53 03/08/17 14:06 03/08/17 14:37 Bedside Glucose 43 *L 50 L 229 H White Blood Count 10.2 Red Blood Count 2.78 L Hemoglobin 8.0 L Hematocrit 25.1 L Mean Corpuscular Volume 90.3 Mean Corpuscular Hemoglobin 28.8 L Mean Corpuscular Hemoglobin Concent 31.9 L Red Cell Distribution Width 14.6 H Platelet Count 167 Mean Platelet Volume 9.8 Neutrophils % 83.1 H Lymphocytes % 5.5 L Monocytes % 9.4 Eosinophils % 0.5 Basophils % 0.2 Nucleated Red Blood Cells % 0.0 Neutrophils # 8.5 H Lymphocytes # 0.6 L Monocytes # 1.0 H Eosinophils # 0.1 Basophils # 0.0 Nucleated Red Blood Cells # 0.0 Test 03/08/17 17:08 Bedside Glucose 81 Medications Medications Current Medications Ondansetron HCl (Zofran Inj) 4 mg Q6H PRN IV NAUSEA AND/OR VOMITING Last administered on 02/23/17 12:49; Admin Dose 4 MG; Start 12/02/16 at 22:30 Miscellaneous Information 1 ea NOTE XX ; Start 12/02/16 at 23:00 Glucose (Glutose) 15 gm Q15M PRN PO DECREASED GLUCOSE; Start 12/02/16 at 23:00 Glucose (Glutose) 22.5 gm Q15M PRN PO DECREASED GLUCOSE; Start 12/02/16 at 23: 00 Dextrose (D50w Syringe) 25 ml Q15M PRN IV DECREASED GLUCOSE Last administered on 03/08/17 05:34; Admin Dose 25 ML; Start 12/02/16 at 23:00 Dextrose (D50w Syringe) 50 ml Q15M PRN IV DECREASED GLUCOSE Last administered on 03/08/17 13:59; Admin Dose 50 ML; Start 12/02/16 at 23:00 Glucagon (Glucagen) 1 mg Q15M PRN IM DECREASED GLUCOSE; Start 12/02/16 at 23:00 Glucose (Glutose) 15 gm Q15M PRN BUCCAL DECREASED GLUCOSE; Start 12/02/16 at 23 :00 Acetaminophen (Tylenol Supp) 650 mg Q6H PRN [place] ELEVATED TEMPERATURE Last administered on 01/13/17 20:32; Admin Dose 650 MG; Start 12/09/16 at 17:00 Hydralazine HCl (Apresoline) 10 mg Q6H PRN IV SBP>150mm hg Last administered on 12/19/16 08:50; Admin Dose 10 MG; Start 12/11/16 at 10:30 Morphine Sulfate (morphine) 2 mg Q2H PRN IV PAIN LEVEL 4-7; Start 12/13/16 at 10 :00 Collagenase (Santyl) 1 applic DAILY TOP Last administered on 03/08/17 09:28; Admin Dose 1 APPLIC; Start 01/04/17 at 09:00 Metoprolol Tartrate (Lopressor) 5 mg Q4 PRN IV FOR H.R>110; Start 01/12/17 at 17:30 Acetaminophen (Tylenol Liquid) 650 mg Q6H PRN NGT PAIN AND [place] ELEVATED TEMP Last administered on 03/06/17 21:32; Admin Dose 650 MG; Start 01/13/17 at 23:30 Acetaminophen/ Hydrocodone Bitart ([place] (5/325)) 1 tab Q6H PRN NGT PAIN LEVEL 4-7; Start 01/13/17 at 23:30 Levetiracetam (Keppra Liquid) 1,000 mg DAILY NGT Last administered on 08:52; Admin Dose 1,000 MG; Start 01/14/17 at 09:00 Meclizine HCl (Antivert) 25 mg TID PRN NGT dizziness; Start 01/13/17 at 20:00 Zolpidem Tartrate (Ambien) 5 mg HS PRN NGT INSOMNIA; Start 01/13/17 at 20:00 Metoprolol Tartrate (Lopressor) 12.5 mg BID NGT Last administered on 02/24/17 10:54; Admin Dose 12.5 MG; Start 01/24/17 at 21:00; Status Future Hold Nystatin (Nystatin Susp) 5 ml Q6 PO Last administered on 03/08/17 17:09; Admin Dose 5 ML; Start 01/31/17 at 12:00 Lansoprazole (Prevacid) 30 mg DAILY@06 GTB Last administered on 03/07/17 05:09 ; Admin Dose 30 MG; Start 02/09/17 at 06:00 Multivitamins (Multivitamin) 30 ml DAILY GTB Last administered on 03/07/17 08: 53; Admin Dose 30 ML; Start 02/14/17 at 16:30 Docusate Sodium (Colace Liquid Cup) 100 mg BID GTB Last administered on 21:00; Admin Dose 100 MG; Start 02/14/17 at 21:00 Amiodarone HCl (Cordarone) 200 mg DAILY GTB Last administered on 03/06/17 09: 38; Admin Dose 200 MG; Start 02/19/17 at 09:00 Ascorbic Acid (Vitamin C) 500 mg DAILY GTB Last administered on 03/07/17 08:52 ; Admin Dose 500 MG; Start 02/22/17 at 09:00 Insulin Glargine (Lantus) 56 unit DAILY@20 SC Last administered on 03/07/17 20 :00; Admin Dose 56 UNIT; Start 02/22/17 at 20:00 Insulin Aspart (Novolog Insulin Pen) NOVOLOG *MODERATE* ALGORI... Q4 SC Last administered on 03/07/17 17:06; Admin Dose 2 UNIT; Start 02/23/17 at 05:00 Metoclopramide HCl (Reglan) 5 mg Q6 IV Last administered on 03/08/17 06:10; Admin Dose 5 MG; Start 02/23/17 at 18:00 Apixaban 2.5 mg 2.5 mg BID GTB Last administered on 03/07/17 21:00; Admin Dose 2.5 MG; Start 03/03/17 at 21:00 Cefepime HCl/ Sodium Chloride (Maxipime/NS) 50 ml @ 100 mls/hr Q12 IVPB Last administered on 03/08/17 09:46; Admin Dose 100 MLS/HR; Start 03/04/17 at 12:00 Epoetin Kyler 6000 units 6,000 units MoWeFr@17 SC Last administered on 17:02; Admin Dose 6,000 UNITS; Start 03/07/17 at 17:00 Colistimethate Sodium 100 mg/ Sodium Chloride 100 ml @ 200 mls/hr Q24H IVPB Last administered on 03/07/17 21:00; Admin Dose 200 MLS/HR; Start 03/06/17 at 21:00 Potassium Chloride/Dextrose/ Sod Cl (D5-1/2ns + KCl 20 Meq) 1,000 ml @ 50 mls/ hr Q20H IV Last administered on 03/08/17 13:33; Admin Dose 50 MLS/HR; Start at 13:00 TASHIA MCGARRY MD Mar 08, 2017 17:20
[2017-03-08] MEDS ORDERED: POLYMYXIN/BACITRACIN 1L IRRIG IRR ONE (17:55)
--- NOTE | 2017-03-08 18:29 | PN ---
Date/Time of Note Date/Time of Note DATE: 03/08/17 TIME: 18:25 Assessment/Plan Lines/Catheters IV Catheter Type (from Nrs): Peripheral IV Assessment/Plan Chief Complaint/Hosp Course 1. Multiple wounds with slough and debris; sacrococcygeal unstageable -debridement today -specialty mattress -frequent turning and offloading -optimize nutrition -vitamin C/ short term zinc 2. Sepsis: multifactorial: multiple wounds +pneumonia + fungemia+ other; wbc normalized -abx per sensitivity -supportive 3. Respiratory failure s/p tracheostomy: 2/2 pna + pl effusions; s/p arrests x2 4. G-tube placement: tolerating tf 5. Thrush: on nystatin 6. ESRD: on dialysis - per nephrology 7. Paroxysmal atrial fibrillation. Eliquis 8. Diabetes: on lantus and sliding scale -blood sugar optimization 9. Diabetic foot ulcer with osteomyelitis of the distal phalanx of the great left toe -podiatry consult -diabetes management 10. Encephalopathy +/- CVA: Acute to subacute right occipital lobe ischemic infarct per CT; awake, responsive -supportive 11. Anemia: likely chronic disease,doubt acute bleed; h/h stable -monitor -transfuse as needed Thank you, Problems: Subjective 24 Hr Interval Summary Does not follow commands. Tolerating feedings. No reports of pain, fevers, chills, v/d, sz, sob, cough. Bowel function. No bloating. Exam/Review of Systems Vital Signs Vitals Vital Signs Date Time Temp Pulse Resp B/P Pulse Ox O2 Delivery O2 Flow Rate FiO2 03/08/17 17:15 71 17 98 30 03/08/17 15:36 98.6 129/59 03/06/17 20:00 Mechanical Ventilator Intake and Output 03/07/17 03/07/17 03/08/17 15:00 23:00 07:00 Intake Total 550 ml 1320 ml 1005 ml Output Total 1900 ml 300 ml 500 ml Balance -1350 ml 1020 ml 505 ml Exam Free Text/Dictation Constitutional: alert, non-verbal, No distress Psych: other (flat affect) Head: atraumatic, normocephalic Eyes: PERRL ENMT: No mucosa pink and moist (dry) Neck: other (tracheostomy, no drainage peristoma), supple Respiratory: crackles/rales, diminished breath sounds Cardiovascular: regular rate and rhythm Gastrointestinal: non-tender, other (gtube), soft Musculoskeletal: muscle weakness Extremities: edema (BUE +2), normal pulses Neurological: other (nonverbal), No nl speech, No nl strength Skin: other (multiple wounds: sacral necrotic tissue and slough, periwound erythema; see nurses notes and pictures) Results Result Diagram: 03/08/17 1437 03/08/17 0609 IRINEO SHORT MD Mar 08, 2017 18:29
--- NOTE | 2017-03-08 18:33 | OPR ---
Date/Time of Note Date/Time of Note DATE: 03/08/17 TIME: 18:29 Operative Report Procedure Date: Mar 08, 2017 Preoperative Diagnosis Sacrococcygeal unstageable pressure ulcer with necrosis Postoperative Diagnosis Sacrococcygeal stage IV decubitus ulcer with necrotic skin, subcutaneous, muscle , fascia. 10 x 9.5 cm Significant amount of pus within the subcutaneous tissue of the sacrococcyx. Operation Performed 1. Excisional debridement of skin, subcutaneous, muscle, fascia. 10 x 9.5 cm 2. Incision and drainage of large abscess of the sacrococcyx Surgeon: IRINEO SHORT MD Anesthesia: general Anesthesiologist: DARRELL FERREIRA MD Estimated Blood Loss: 0 - 10 ml's Specimens 1. Culture 2. Tissue Grafts/Implants Curlex 2 Complications: None Pt Condition Post Procedure: stable Disposition: PACU Indications Per notes. Risks include but are not limited to bleeding, infection, abscess, seroma, leak , chronic pain, need for re-operations or further surgeries, RI, stroke, PE, DVT , pneumonia, organ failures, or even . Procedure Description Patient was brought in on his own bed to the OR. Placed in lateral decubitus position. All pressure points were well-padded. Patient is already on antibiotics. Anesthesia was instituted. Timeout was performed. He was prepped and draped in usual sterile fashion. Using electrocautery skin, subcutaneous, fascia and muscle were excised down to bone. Hemostasis was obtained. There was significant amount of pus within the wound which was suctioned out and culture was sent. Wound was irrigated and packed with Betadine soaked Kerlix x 2. Dressing was applied. Patient was taken back to recovery room in stable condition. All counts were correct at the end of the operation 2. IRINEO SHORT MD Mar 08, 2017 18:33
[2017-03-08] MEDS ORDERED: EPHEDrine SULFATE 50 MG/5 ML SYG IV PRN (19:30)
[2017-03-08] MEDS: INSULIN GLARGINE [LANtus] 3 ML PEN SC SCH (20:00)
[2017-03-08] MEDS: COLISTIMETHATE 100 MG in SOD CHLORIDE 0.9% 100 ML IVPB SCH (21:24)
[2017-03-09] VITALS (30 sets, daily range): BP systolic 95–135; BP diastolic 46–72; PULSE 77–85; RESP 17–25
[2017-03-09] MEDS: METOCLOPRAMIDE 10 MG INJ IV SCH ×4 (00:29→16:56)
[2017-03-09] MEDS: INSULIN ASPART [NOVOLOG] 3 ML PEN SC SCH ×6 (00:33→20:43)
[2017-03-09] MEDS: ALBUTEROL 18 GM INHALER INH SCH ×4 (01:43→20:10)
[2017-03-09] MEDS: NYSTATIN SUSP 5 ML CUP PO SCH ×4 (05:39→16:56)
[2017-03-09] MEDS: LANSOPRAZOLE 30 MG CAP GTB SCH (05:49)
--- NOTE | 2017-03-09 08:59 | RADRPT ---
Vent Rate: 92 bpm RR Interval: 0 msec DE Interval: 186 msec QRS Duration: 78 msec QT Interval: 360 msec QTC Interval: 445 msec P-R-T [place]: 74 - 75 - 0 degrees Normal sinus rhythm Nonspecific ST and T wave abnormality Abnormal ECG Electronically Signed By: Jose Antonio Lanza [id number]
[2017-03-09] MEDS: COLLAGENASE 30 GM TUBE TOP SCH (09:00)
[2017-03-09] MEDS: SODIUM HYPOCHLORITE 1/40% 1L IRRIG IRR SCH (09:00)
--- NOTE | 2017-03-09 09:21 | CONS ---
Date/Time of Note Date/Time of Note DATE: 03/09/17 TIME: 09:18 Assessment/Plan Assessment/Plan Chief Complaint/Hosp Course - possible UTI due to carbapenemase-producing klebsiella and pseudomonas - probable colonization of the resp scotty by pseudomonas - probable colonization of the urinary tract by yeast - s/p recurrent sepsis due to pneumonia - treated with cefepime, tobramycin, and caspofungin - s/p recurrent pneumonia due to pseudomonas - s/p sepsis due to possible tracheobronchitis/pneumonia - funguria - thrush, persistent - recurrent cardiopulmonary arrest on 12/09/2016 and on 01/08/2017 - hypoxic respiratory failure, intubated for the 2nd time on 12/12/2016; extubated 12/18/2016; re-intubated for the 3rd time 01/08/2017, s/p tracheostomy 06/2017 - bleeding from trach site - resolved - acute on chronic anemia due to acute blood loss, requiring blood transfusion - 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 Blood cultures from HD catheter on 12/13/2016 are negative to date. 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 MRI on 12/06/2016 and bone scan on showed early OM of the distal phalanx of the left great toe and left fourth proximal phalanx. superficial swab grew inna only. At present, no e/o persistent infection - recurrent pleural effusion - s/p right pleural effusion s/p thoracentesis with .9L removed on 12/16/2016; ( Note: there is no pleural fluid cx since orders were placed after Right thoracentesis, and Left thoracentesis was not performed on 12/17/16 d/t insufficient fluid) - ARANZA on CKD that progressed to ESRD and started on HD from 12/09/2016 - oliguria - improved - A fib -> PAF - small nonreversible perfusion abnormality in the inferoapical and inferior carver; EF 36% per Lexiscan 12/24/2016 - severe , EF 40-45% per TTE 12/17/16 - DM - Hgb A1c 8.7% - HTN associated with DM - acute encephalopathy with anoxic brain injury - unstageable decubitus ulcer of coccyx, s/p excisional debridement of skin, subcutaneous, muscle, fascia, I&D of abscess on 03/08/2017 - dysphagia s/p G-tube placement 02/08/2017 NOTE: Pt completed 6 weeks (12/03/2016-01/15/2017) of antibiotics to treat early OM of the distal phalanx of the left great toe and left fourth proximal phalanx ; s/p pip/tazo 12/03/16-01/08/17; linezolid 01/08/17-01/20/17; caspofungin 01/12/17-01/21/17 and 02/04/17-02/17/17; tobramycin 02/04/2017- 02/15/17 for pseudomonas; cefepime 02/02/17-02/18/17 recommendations: - pending results: cultures of abscess of sacrococcyx, sensitivity of Pt's carbapenemase-producing klebsiella for colistin, TGC, ceftaz/miranda, ceftaroline/ tazo (the sample was sent on 03/07/2017) - continue IV cefepime for pseudomonas in urine culture (03/04/2017). It may be covered by colistin too - continue IV colistin for carbapenemase-producing kleb (03/06/2017-). - for thrush, re-start pGT fluconazole (03/09/2017-); continue nystatin - will adjust his antibiotics based on the results of abscess culture - contact isolation for carbapenemase-producing klebsiella management d/w Pt's RN Problems: Consultation Date/Type/Reason Admit Date/Time Dec 02, 2016 at 21:01 Initial Consult Date 12/03/16 Type of Consultation: ID Referring Provider: VIET PARKER MD 24 HR Interval Summary Subjective hx not possible: pt non-verbal Exam/Review of Systems Vital Signs Vitals Vital Signs Date Time Temp Pulse Resp B/P Pulse Ox O2 Delivery O2 Flow Rate FiO2 03/09/17 08:20 80 03/09/17 07:10 98.3 18 96/48 96 03/09/17 05:40 30 03/08/17 19:20 Mechanical Ventilator Intake and Output 03/08/17 03/08/17 03/09/17 15:00 23:00 07:00 Intake Total 90 ml 750 ml Output Total 405 ml 400 ml Balance -315 ml 350 ml Exam Constitutional: frail, non-verbal Psych: confusion Head: atraumatic, normocephalic Eyes: nl conjunctiva, nl lids ENMT: nl external ears & nose, nl nasal mucosa & septum, other (thrush) Neck: other (trach) Respiratory: clear to auscultation, normal air movement Cardiovascular: nl pulses, regular rate and rhythm Gastrointestinal: non-tender, other (GT), soft Genitourinary - Male: other (external catheter) Musculoskeletal: nl extremities to inspection Extremities: No edema Neurological: confused, lethargic Skin: other (woundo of coccyx is packed) Results Result Diagram: 03/08/17 1437 03/08/17 0609 Results 24 hrs Laboratory Tests Test 03/08/17 09:44 03/08/17 09:56 03/08/17 13:30 03/08/17 13:53 Bedside Glucose 45 *L 180 43 *L 50 L Test 03/08/17 14:06 03/08/17 14:37 03/08/17 17:08 03/08/17 18:25 Bedside Glucose 229 H 81 73 White Blood Count 10.2 Red Blood Count 2.78 L Hemoglobin 8.0 L Hematocrit 25.1 L Mean Corpuscular Volume 90.3 Mean Corpuscular Hemoglobin 28.8 L Mean Corpuscular Hemoglobin Concent 31.9 L Red Cell Distribution Width 14.6 H Platelet Count 167 Mean Platelet Volume 9.8 Neutrophils % 83.1 H Lymphocytes % 5.5 L Monocytes % 9.4 Eosinophils % 0.5 Basophils % 0.2 Nucleated Red Blood Cells % 0.0 Neutrophils # 8.5 H Lymphocytes # 0.6 L Monocytes # 1.0 H Eosinophils # 0.1 Basophils # 0.0 Nucleated Red Blood Cells # 0.0 Test 03/08/17 19:14 03/08/17 21:35 03/08/17 21:52 03/09/17 00:32 Bedside Glucose 108 83 82 124 Test 03/09/17 05:26 Bedside Glucose 158 Medications Medications Current Medications Ondansetron HCl (Zofran Inj) 4 mg Q6H PRN IV NAUSEA AND/OR VOMITING Last administered on 02/23/17t 12:49; Admin Dose 4 MG; Start 12/02/16 at 22:30 Miscellaneous Information 1 ea NOTE XX ; Start 12/02/16 at 23:00 Glucose (Glutose) 15 gm Q15M PRN PO DECREASED GLUCOSE; Start 12/02/16 at 23:00 Glucose (Glutose) 22.5 gm Q15M PRN PO DECREASED GLUCOSE; Start 12/02/16 at 23: 00 Dextrose (D50w Syringe) 25 ml Q15M PRN IV DECREASED GLUCOSE Last administered on 03/08/17 05:34; Admin Dose 25 ML; Start 12/02/16 at 23:00 Dextrose (D50w Syringe) 50 ml Q15M PRN IV DECREASED GLUCOSE Last administered on 03/08/17 13:59; Admin Dose 50 ML; Start 12/02/16 at 23:00 Glucagon (Glucagen) 1 mg Q15M PRN IM DECREASED GLUCOSE; Start 12/02/16 at 23:00 Glucose (Glutose) 15 gm Q15M PRN BUCCAL DECREASED GLUCOSE; Start 12/02/16 at 23 :00 Acetaminophen (Tylenol Supp) 650 mg Q6H PRN MA ELEVATED TEMPERATURE Last administered on 01/13/17 20:32; Admin Dose 650 MG; Start 12/09/16 at 17:00 Hydralazine HCl (Apresoline) 10 mg Q6H PRN IV SBP>150mm hg Last administered on 12/19/16 08:50; Admin Dose 10 MG; Start 12/11/16 at 10:30 Morphine Sulfate (morphine) 2 mg Q2H PRN IV PAIN LEVEL 4-7; Start 12/13/16 at 10 :00 Collagenase (Santyl) 1 applic DAILY TOP Last administered on 03/08/17 09:28; Admin Dose 1 APPLIC; Start 01/04/17 at 09:00 Metoprolol Tartrate (Lopressor) 5 mg Q4 PRN IV FOR H.R>110; Start 01/12/17 at 17:30 Acetaminophen (Tylenol Liquid) 650 mg Q6H PRN NGT PAIN AND OR ELEVATED TEMP Last administered on 03/06/17 21:32; Admin Dose 650 MG; Start 01/13/17 at 23:30 Acetaminophen/ Hydrocodone Bitart ([place] (5/325)) 1 tab Q6H PRN NGT PAIN LEVEL 4-7; Start 01/13/17 at 23:30 Levetiracetam (Keppra Liquid) 1,000 mg DAILY NGT Last administered on 08:52; Admin Dose 1,000 MG; Start 01/14/17 at 09:00 Meclizine HCl (Antivert) 25 mg TID PRN NGT dizziness; Start 01/13/17 at 20:00 Zolpidem Tartrate (Ambien) 5 mg HS PRN NGT INSOMNIA; Start 01/13/17 at 20:00 Metoprolol Tartrate (Lopressor) 12.5 mg BID NGT Last administered on 02/24/17 10:54; Admin Dose 12.5 MG; Start 01/24/17 at 21:00; Status Future Hold Nystatin (Nystatin Susp) 5 ml Q6 PO Last administered on 03/09/17 05:39; Admin Dose 5 ML; Start 01/31/17 at 12:00 Lansoprazole (Prevacid) 30 mg DAILY@06 GTB Last administered on 03/09/17 05:49 ; Admin Dose 30 MG; Start 02/09/17 at 06:00 Multivitamins (Multivitamin) 30 ml DAILY GTB Last administered on 03/07/17 08: 53; Admin Dose 30 ML; Start 02/14/17 at 16:30 Docusate Sodium (Colace Liquid Cup) 100 mg BID GTB Last administered on 21:23; Admin Dose 100 MG; Start 02/14/17 at 21:00 Amiodarone HCl (Cordarone) 200 mg DAILY GTB Last administered on 03/06/17 09: 38; Admin Dose 200 MG; Start 02/19/17 at 09:00 Ascorbic Acid (Vitamin C) 500 mg DAILY GTB Last administered on 03/07/17 08:52 ; Admin Dose 500 MG; Start 02/22/17 at 09:00 Insulin Glargine (Lantus) 56 unit DAILY@20 SC Last administered on 03/07/17 20 :00; Admin Dose 56 UNIT; Start 02/22/17 at 20:00 Insulin Aspart (Novolog Insulin Pen) NOVOLOG *MODERATE* ALGORI... Q4 SC Last administered on 03/09/17 05:40; Admin Dose 2 UNIT; Start 02/23/17 at 05:00 Metoclopramide HCl (Reglan) 5 mg Q6 IV Last administered on 03/09/17 05:39; Admin Dose 5 MG; Start 02/23/17 at 18:00 Apixaban 2.5 mg 2.5 mg BID GTB Last administered on 03/08/17 21:24; Admin Dose 2.5 MG; Start 03/03/17 at 21:00 Cefepime HCl/ Sodium Chloride (Maxipime/NS) 50 ml @ 100 mls/hr Q12 IVPB Last administered on 03/08/17 21:51; Admin Dose 100 MLS/HR; Start 03/04/17 at 12:00 Epoetin Kyler 6000 units 6,000 units MoWeFr@17 SC Last administered on 17:02; Admin Dose 6,000 UNITS; Start 03/07/17 at 17:00 Colistimethate Sodium 100 mg/ Sodium Chloride 100 ml @ 200 mls/hr Q24H IVPB Last administered on 03/08/17 21:24; Admin Dose 200 MLS/HR; Start 03/06/17 at 21:00 Potassium Chloride/Dextrose/ Sod Cl (D5-1/2ns + KCl 20 Meq) 1,000 ml @ 50 mls/ hr Q20H IV Last administered on 03/08/17 13:33; Admin Dose 50 MLS/HR; Start at 13:00 Sodium Hypochlorite (Dakin'S (Dilute 1/40%)) 1 applic DAILY IRR ; Start at 09:00 CHRISTY LOPEZ M.D. Mar 09, 2017 09:21
[2017-03-09] MEDS: MULTIVITAMINS 30 ML CUP GTB SCH (09:47)
[2017-03-09] MEDS: LEVETIRACETAM (100 MG/ML) 5ML CUP NGT SCH (09:47)
[2017-03-09] MEDS: CEFEPIME HCL 0.5 GM in SOD CHLORIDE 0.9% 50 ML IVPB SCH ×2 (09:47→21:05)
[2017-03-09] MEDS: DOCUSATE SODIUM 10 MG/ML (10ML CUP) GTB SCH ×2 (09:47→20:33)
[2017-03-09] MEDS: ASCORBIC ACID 500 MG TAB GTB SCH (09:48)
[2017-03-09] MEDS: AMIODARONE 200 MG TAB GTB SCH (09:49)
[2017-03-09] MEDS: APIXABAN 5 MG TABLET GTB SCH ×2 (09:50→20:35)
[2017-03-09] MEDS ORDERED: FLUCONAZOLE 200 MG TAB GTB ONE (10:00)
[2017-03-09 11:08] LABS: CALCIUM 8.2 mg/dl (8.4-10.2); CREATININE 0.5 mg/dl (0.61-1.24); POTASSIUM 3.4 mmol/L (3.5-5.1)
--- NOTE | 2017-03-09 13:01 | CONS ---
Date/Time of Note Date/Time of Note DATE: 03/09/17 TIME: 13:00 Assessment/Plan Assessment/Plan Additional Assessment/Plan -S/p cardiopulmonary arrest on 12/09/2016 and on 01/08/2017 - 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 Blood cultures from HD catheter on 12/13/2016 are negative to date. 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 MRI on 12/06/2016 and bone scan on showed early OM of the distal phalanx of the left great toe and left fourth proximal phalanx. superficial swab grew inna only - s/p right pleural effusion s/p thoracentesis with .9L removed on 12/16/2016 - severe , EF 40-45% per TTE 12/17/16 - DM - Hgb A1c 8.7% - HTN associated with DM - sp Tracheostomy site bleeding Plan: will conitnue HD on MWF - HD ordered for today continue epogen for anemia awaiting debridement of wound - possible plan on Tuesday s/p Tracheostomy, pt will need HD palcement at a unit where they can do a HD for pt with tracheostomy and PEG tube placemen t- case management associate worked on it pt has severe , very labile BP sometimes with HD will continue to follow up for HD need Consultation Date/Type/Reason Admit Date/Time Dec 02, 2016 at 21:01 Initial Consult Date Type of Consultation: NEPHROLOGY Referring Provider: VIET PARKER MD 24 HR Interval Summary Free Text/Dictation plan for HD today Exam/Review of Systems Vital Signs Vitals Vital Signs Date Time Temp Pulse Resp B/P Pulse Ox O2 Delivery O2 Flow Rate FiO2 03/09/17 12:24 77 03/09/17 11:04 98.8 18 111/55 98 03/09/17 10:56 30 03/08/17 19:20 Mechanical Ventilator Intake and Output 03/08/17 03/08/17 03/09/17 15:00 23:00 07:00 Intake Total 90 ml 750 ml Output Total 405 ml 400 ml Balance -315 ml 350 ml Exam Constitutional: non-verbal Psych: confusion Head: atraumatic, normocephalic+ tracheostomy Respiratory: clear to auscultation, normal air movement Cardiovascular: nl pulses, regular rate and rhythm Gastrointestinal: non-tender, soft Extremities: No edema Neurological: lethargic Skin: rash or lesions (decubitus ulcer is clean, non-purulent, well vascularized tissue) Results Result Diagram: 03/08/17 1437 03/09/17 1009 Results 24 hrs Laboratory Tests Test 03/08/17 13:30 03/08/17 13:53 03/08/17 14:06 03/08/17 14:37 Bedside Glucose 43 *L 50 L 229 H White Blood Count 10.2 Red Blood Count 2.78 L Hemoglobin 8.0 L Hematocrit 25.1 L Mean Corpuscular Volume 90.3 Mean Corpuscular Hemoglobin 28.8 L Mean Corpuscular Hemoglobin Concent 31.9 L Red Cell Distribution Width 14.6 H Platelet Count 167 Mean Platelet Volume 9.8 Neutrophils % 83.1 H Lymphocytes % 5.5 L Monocytes % 9.4 Eosinophils % 0.5 Basophils % 0.2 Nucleated Red Blood Cells % 0.0 Neutrophils # 8.5 H Lymphocytes # 0.6 L Monocytes # 1.0 H Eosinophils # 0.1 Basophils # 0.0 Nucleated Red Blood Cells # 0.0 Test 03/08/17 17:08 03/08/17 18:25 03/08/17 19:14 03/08/17 21:35 Bedside Glucose 81 73 108 83 Test 03/08/17 21:52 03/09/17 00:32 03/09/17 05:26 03/09/17 09:53 Bedside Glucose 82 124 158 175 Test 03/09/17 10:09 Sodium Level 145 H Potassium Level 3.4 L Chloride Level 99 Carbon Dioxide Level 33 H Anion Gap 16 Blood Urea Nitrogen 19 # Creatinine 0.50 L Glucose Level 169 Calcium Level 8.2 L Medications Medications Current Medications Ondansetron HCl (Zofran Inj) 4 mg Q6H PRN IV NAUSEA AND/OR VOMITING Last administered on 02/23/17 12:49; Admin Dose 4 MG; Start 12/02/16 at 22:30 Miscellaneous Information 1 ea NOTE XX ; Start 12/02/16 at 23:00 Glucose (Glutose) 15 gm Q15M PRN PO DECREASED GLUCOSE; Start 12/02/16 at 23:00 Glucose (Glutose) 22.5 gm Q15M PRN PO DECREASED GLUCOSE; Start 12/02/16 at 23: 00 Dextrose (D50w Syringe) 25 ml Q15M PRN IV DECREASED GLUCOSE Last administered on 03/08/17 05:34; Admin Dose 25 ML; Start 12/02/16 at 23:00 Dextrose (D50w Syringe) 50 ml Q15M PRN IV DECREASED GLUCOSE Last administered on 03/08/17 13:59; Admin Dose 50 ML; Start 12/02/16 at 23:00 Glucagon (Glucagen) 1 mg Q15M PRN IM DECREASED GLUCOSE; Start 12/02/16 at 23:00 Glucose (Glutose) 15 gm Q15M PRN BUCCAL DECREASED GLUCOSE; Start 12/02/16 at 23 :00 Acetaminophen (Tylenol Supp) 650 mg Q6H PRN IN ELEVATED TEMPERATURE Last administered on 01/13/17 20:32; Admin Dose 650 MG; Start 12/09/16 at 17:00 Hydralazine HCl (Apresoline) 10 mg Q6H PRN IV SBP>150mm hg Last administered on 12/19/16 08:50; Admin Dose 10 MG; Start 12/11/16 at 10:30 Morphine Sulfate (morphine) 2 mg Q2H PRN IV PAIN LEVEL 4-7; Start 12/13/16 at 10 :00 Collagenase (Santyl) 1 applic DAILY TOP Last administered on 03/08/17 09:28; Admin Dose 1 APPLIC; Start 01/04/17 at 09:00 Metoprolol Tartrate (Lopressor) 5 mg Q4 PRN IV FOR H.R>110; Start 01/12/17 at 17:30 Acetaminophen (Tylenol Liquid) 650 mg Q6H PRN NGT PAIN AND OR ELEVATED TEMP Last administered on 03/06/17 21:32; Admin Dose 650 MG; Start 01/13/17 at 23:30 Acetaminophen/ Hydrocodone Bitart ([place] (5/325)) 1 tab Q6H PRN NGT PAIN LEVEL 4-7; Start 01/13/17 at 23:30 Levetiracetam (Keppra Liquid) 1,000 mg DAILY NGT Last administered on 09:47; Admin Dose 1,000 MG; Start 01/14/17 at 09:00 Meclizine HCl (Antivert) 25 mg TID PRN NGT dizziness; Start 01/13/17 at 20:00 Zolpidem Tartrate (Ambien) 5 mg HS PRN NGT INSOMNIA; Start 01/13/17 at 20:00 Metoprolol Tartrate (Lopressor) 12.5 mg BID NGT Last administered on 02/24/17 10:54; Admin Dose 12.5 MG; Start 01/24/17 at 21:00; Status Future Hold Nystatin (Nystatin Susp) 5 ml Q6 PO Last administered on 03/09/17 10:23; Admin Dose 5 ML; Start 01/31/17 at 12:00 Lansoprazole (Prevacid) 30 mg DAILY@06 GTB Last administered on 03/09/17 05:49 ; Admin Dose 30 MG; Start 02/09/17 at 06:00 Multivitamins (Multivitamin) 30 ml DAILY GTB Last administered on 03/09/17 09: 47; Admin Dose 30 ML; Start 02/14/17 at 16:30 Docusate Sodium (Colace Liquid Cup) 100 mg BID GTB Last administered on 09:47; Admin Dose 100 MG; Start 02/14/17 at 21:00 Amiodarone HCl (Cordarone) 200 mg DAILY GTB Last administered on 03/09/17 09: 49; Admin Dose 200 MG; Start 02/19/17 at 09:00 Ascorbic Acid (Vitamin C) 500 mg DAILY GTB Last administered on 03/09/17 09:48 ; Admin Dose 500 MG; Start 02/22/17 at 09:00 Insulin Glargine (Lantus) 56 unit DAILY@20 SC Last administered on 03/07/17 20 :00; Admin Dose 56 UNIT; Start 02/22/17 at 20:00 Insulin Aspart (Novolog Insulin Pen) NOVOLOG *MODERATE* ALGORI... Q4 SC Last administered on 03/09/17 10:28; Admin Dose 2 UNIT; Start 02/23/17 at 05:00 Metoclopramide HCl (Reglan) 5 mg Q6 IV Last administered on 03/09/17 05:39; Admin Dose 5 MG; Start 02/23/17 at 18:00 Apixaban 2.5 mg 2.5 mg BID GTB Last administered on 03/09/17 09:50; Admin Dose 2.5 MG; Start 03/03/17 at 21:00 Cefepime HCl/ Sodium Chloride (Maxipime/NS) 50 ml @ 100 mls/hr Q12 IVPB Last administered on 03/09/17 09:47; Admin Dose 100 MLS/HR; Start 03/04/17 at 12:00 Epoetin Kyler 6000 units 6,000 units MoWeFr@17 SC Last administered on 17:02; Admin Dose 6,000 UNITS; Start 03/07/17 at 17:00 Colistimethate Sodium 100 mg/ Sodium Chloride 100 ml @ 200 mls/hr Q24H IVPB Last administered on 03/08/17 21:24; Admin Dose 200 MLS/HR; Start 03/06/17 at 21:00 Potassium Chloride/Dextrose/ Sod Cl (D5-1/2ns + KCl 20 Meq) 1,000 ml @ 50 mls/ hr Q20H IV Last administered on 03/08/17 13:33; Admin Dose 50 MLS/HR; Start at 13:00 Sodium Hypochlorite (Dakin'S (Dilute 1/40%)) 1 applic DAILY IRR Last administered on 03/09/17 09:00; Admin Dose 1 APPLIC; Start 03/09/17 at 09:00 Fluconazole (Diflucan) 100 mg DAILY GTB ; Start 03/10/17 at 10:00 TASHIA MCGARRY MD Mar 09, 2017 13:01
--- NOTE | 2017-03-09 13:17 | CONS ---
Date/Time of Note Date/Time of Note DATE: 03/09/17 TIME: 13:15 Assessment/Plan Assessment/Plan Chief Complaint/Hosp Course IMPRESSION: 1. Atrial fibrillation-Having episodes of PAF with reasonable rate control. Currently remains in SR. Had pause approximately 4 during suctioning. No recurrent pause since holding of BB 2. Hypotension-overall improved and stable 3. Abnormal electrocardiogram with inferolateral T-wave inversions. 4. Respiratory failure-s/p trach placement 5. Nonhealing toe ulceration-vascular following 6. Peripheral arterial disease by arterial ultrasound of the lower extremities this admission. 7. Diabetes mellitus. 8. Fevers. 9. Positive troponin-downtrended 10.Bradycardia-improved/stable 11.-severe by echo 12.Cardiomyopathy-EF 40-45% by echo/36% by stress with no ischemia but positive scar. EF <30% by echo post arrest 13.Encephalopathy-anoxic 14. s/p cardiopulmonary arrest 01/08 15. Pre-op-for debridemnt of decubitis ulcer- Patient at this time has no definite cardiac contraindication to proceeding to OR for debridement but is at high risk for CV complications. Now post-op s/p debridment without copmplications day#1 16. Hypernatremia Recc: -Tele -serial ecg -HD for volume removal as tolerated ongoing today -Continue PO amio in attempt to maintain SR, daily and follow for any recurrent pauses -Will hold on afterload reduction given severe and thus fixed afterload at valve orifice -Continue to hold BB and follow for recurrent pause -Eliquis now again held for possible debridement Problems: Consultation Date/Type/Reason Admit Date/Time Dec 02, 2016 at 21:01 Initial Consult Date 12/03/16 Type of Consultation: cardiology Reason for Consultation PAF Referring Provider: VIET PARKER MD Exam/Review of Systems Vital Signs Vitals Vital Signs Date Time Temp Pulse Resp B/P Pulse Ox O2 Delivery O2 Flow Rate FiO2 03/09/17 12:24 77 03/09/17 11:04 98.8 18 111/55 98 03/09/17 10:56 30 03/08/17 19:20 Mechanical Ventilator Intake and Output 03/08/17 03/08/17 03/09/17 15:00 23:00 07:00 Intake Total 90 ml 750 ml Output Total 405 ml 400 ml Balance -315 ml 350 ml Exam Review of Systems: CONSTITUTIONAL: No fevers, chills. PULMONARY: trached CARDIOVASCULAR: No chest pain/palpitations GASTROINTESTINAL: No nausea/vomiting. GENITOURINARY: No hematuria/dysuria. MUSCULOSKELETAL: No myagias/arthalgias. PSYCHIATRIC: The patient denies depression. NEUROLOGIC: encephalopathic Constitutional: alert Head: normocephalic ENMT: mucosa pink and moist Neck: jvd (9 cm water), supple Respiratory: diminished breath sounds Cardiovascular: regular rate and rhythm Gastrointestinal: soft Musculoskeletal: muscle tone Extremities: normal pulses Neurological: other (No focal deficits) Results Result Diagram: 03/08/17 1437 03/09/17 1009 Results 24 hrs Laboratory Tests Test 03/08/17 13:30 03/08/17 13:53 03/08/17 14:06 03/08/17 14:37 Bedside Glucose 43 *L 50 L 229 H White Blood Count 10.2 Red Blood Count 2.78 L Hemoglobin 8.0 L Hematocrit 25.1 L Mean Corpuscular Volume 90.3 Mean Corpuscular Hemoglobin 28.8 L Mean Corpuscular Hemoglobin Concent 31.9 L Red Cell Distribution Width 14.6 H Platelet Count 167 Mean Platelet Volume 9.8 Neutrophils % 83.1 H Lymphocytes % 5.5 L Monocytes % 9.4 Eosinophils % 0.5 Basophils % 0.2 Nucleated Red Blood Cells % 0.0 Neutrophils # 8.5 H Lymphocytes # 0.6 L Monocytes # 1.0 H Eosinophils # 0.1 Basophils # 0.0 Nucleated Red Blood Cells # 0.0 Test 03/08/17 17:08 03/08/17 18:25 03/08/17 19:14 03/08/17 21:35 Bedside Glucose 81 73 108 83 Test 03/08/17 21:52 03/09/17 00:32 03/09/17 05:26 03/09/17 09:53 Bedside Glucose 82 124 158 175 Test 03/09/17 10:09 Sodium Level 145 H Potassium Level 3.4 L Chloride Level 99 Carbon Dioxide Level 33 H Anion Gap 16 Blood Urea Nitrogen 19 # Creatinine 0.50 L Glucose Level 169 Calcium Level 8.2 L Medications Medications Current Medications Ondansetron HCl (Zofran Inj) 4 mg Q6H PRN IV NAUSEA AND/OR VOMITING Last administered on 02/23/17 12:49; Admin Dose 4 MG; Start 12/02/16 at 22:30 Miscellaneous Information 1 ea NOTE XX ; Start 12/02/16 at 23:00 Glucose (Glutose) 15 gm Q15M PRN PO DECREASED GLUCOSE; Start 12/02/16 at 23:00 Glucose (Glutose) 22.5 gm Q15M PRN PO DECREASED GLUCOSE; Start 12/02/16 at 23: 00 Dextrose (D50w Syringe) 25 ml Q15M PRN IV DECREASED GLUCOSE Last administered on 03/08/17 05:34; Admin Dose 25 ML; Start 12/02/16 at 23:00 Dextrose (D50w Syringe) 50 ml Q15M PRN IV DECREASED GLUCOSE Last administered on 03/08/17 13:59; Admin Dose 50 ML; Start 12/02/16 at 23:00 Glucagon (Glucagen) 1 mg Q15M PRN IM DECREASED GLUCOSE; Start 12/02/16 at 23:00 Glucose (Glutose) 15 gm Q15M PRN BUCCAL DECREASED GLUCOSE; Start 12/02/16 at 23 :00 Acetaminophen (Tylenol Supp) 650 mg Q6H PRN [place] ELEVATED TEMPERATURE Last administered on 01/13/17 20:32; Admin Dose 650 MG; Start 12/09/16 at 17:00 Hydralazine HCl (Apresoline) 10 mg Q6H PRN IV SBP>150mm hg Last administered on 12/19/16 08:50; Admin Dose 10 MG; Start 12/11/16 at 10:30 Morphine Sulfate (morphine) 2 mg Q2H PRN IV PAIN LEVEL 4-7; Start 12/13/16 at 10 :00 Collagenase (Santyl) 1 applic DAILY TOP Last administered on 03/08/17 09:28; Admin Dose 1 APPLIC; Start 01/04/17 at 09:00 Metoprolol Tartrate (Lopressor) 5 mg Q4 PRN IV FOR H.R>110; Start 01/12/17 at 17:30 Acetaminophen (Tylenol Liquid) 650 mg Q6H PRN NGT PAIN AND OR ELEVATED TEMP Last administered on 03/06/17 21:32; Admin Dose 650 MG; Start 01/13/17 at 23:30 Acetaminophen/ Hydrocodone Bitart ([place] (5/325)) 1 tab Q6H PRN NGT PAIN LEVEL 4-7; Start 01/13/17 at 23:30 Levetiracetam (Keppra Liquid) 1,000 mg DAILY NGT Last administered on 09:47; Admin Dose 1,000 MG; Start 01/14/17 at 09:00 Meclizine HCl (Antivert) 25 mg TID PRN NGT dizziness; Start 01/13/17 at 20:00 Zolpidem Tartrate (Ambien) 5 mg HS PRN NGT INSOMNIA; Start 01/13/17 at 20:00 Metoprolol Tartrate (Lopressor) 12.5 mg BID NGT Last administered on 02/24/17 10:54; Admin Dose 12.5 MG; Start 01/24/17 at 21:00; Status Future Hold Nystatin (Nystatin Susp) 5 ml Q6 PO Last administered on 03/09/17 10:23; Admin Dose 5 ML; Start 01/31/17 at 12:00 Lansoprazole (Prevacid) 30 mg DAILY@06 GTB Last administered on 03/09/17 05:49 ; Admin Dose 30 MG; Start 02/09/17 at 06:00 Multivitamins (Multivitamin) 30 ml DAILY GTB Last administered on 03/09/17 09: 47; Admin Dose 30 ML; Start 02/14/17 at 16:30 Docusate Sodium (Colace Liquid Cup) 100 mg BID GTB Last administered on 09:47; Admin Dose 100 MG; Start 02/14/17 at 21:00 Amiodarone HCl (Cordarone) 200 mg DAILY GTB Last administered on 03/09/17 09: 49; Admin Dose 200 MG; Start 02/19/17 at 09:00 Ascorbic Acid (Vitamin C) 500 mg DAILY GTB Last administered on 03/09/17 09:48 ; Admin Dose 500 MG; Start 02/22/17 at 09:00 Insulin Glargine (Lantus) 56 unit DAILY@20 SC Last administered on 03/07/17 20 :00; Admin Dose 56 UNIT; Start 02/22/17 at 20:00 Insulin Aspart (Novolog Insulin Pen) NOVOLOG *MODERATE* ALGORI... Q4 SC Last administered on 03/09/17 10:28; Admin Dose 2 UNIT; Start 02/23/17 at 05:00 Metoclopramide HCl (Reglan) 5 mg Q6 IV Last administered on 03/09/17 05:39; Admin Dose 5 MG; Start 02/23/17 at 18:00 Apixaban 2.5 mg 2.5 mg BID GTB Last administered on 03/09/17 09:50; Admin Dose 2.5 MG; Start 03/03/17 at 21:00 Cefepime HCl/ Sodium Chloride (Maxipime/NS) 50 ml @ 100 mls/hr Q12 IVPB Last administered on 03/09/17 09:47; Admin Dose 100 MLS/HR; Start 03/04/17 at 12:00 Epoetin Kyler 6000 units 6,000 units MoWeFr@17 SC Last administered on 17:02; Admin Dose 6,000 UNITS; Start 03/07/17 at 17:00 Colistimethate Sodium 100 mg/ Sodium Chloride 100 ml @ 200 mls/hr Q24H IVPB Last administered on 03/08/17 21:24; Admin Dose 200 MLS/HR; Start 03/06/17 at 21:00 Potassium Chloride/Dextrose/ Sod Cl (D5-1/2ns + KCl 20 Meq) 1,000 ml @ 50 mls/ hr Q20H IV Last administered on 03/08/17 13:33; Admin Dose 50 MLS/HR; Start at 13:00 Sodium Hypochlorite (Dakin'S (Dilute 1/40%)) 1 applic DAILY IRR Last administered on 03/09/17 09:00; Admin Dose 1 APPLIC; Start 03/09/17 at 09:00 Fluconazole (Diflucan) 100 mg DAILY GTB ; Start 03/10/17 at 10:00 VICENTE LESLIE Mar 09, 2017 13:17
--- NOTE | 2017-03-09 14:10 | PN ---
Date/Time of Note Date/Time of Note DATE: 03/09/17 TIME: 13:55 Assessment/Plan Lines/Catheters IV Catheter Type (from Nrs): Peripheral IV [place] in Place (from Nrs): No (CONDOM CATHETER) Assessment/Plan Chief Complaint/Hosp Course 1. Multiple wounds with slough and debris; sacrococcygeal stage IV :s/p debridement 03/08 with significant amount of pus; specimens sent -specialty mattress -frequent turning and offloading -optimize nutrition -vitamin C/ short term zinc 2. Sepsis: multifactorial: multiple wounds +pneumonia + fungemia+ uti (yeast) + other; wbc normalized -abx per sensitivity -supportive 3. Respiratory failure s/p tracheostomy: 2/2 pna + pl effusions; s/p arrests x2 4. G-tube placement: tolerating tf 5. Thrush: on nystatin 6. ESRD: on dialysis - per nephrology 7. Paroxysmal atrial fibrillation. Eliquis; now on SR 8. Diabetes: on lantus and sliding scale -blood sugar optimization 9. Diabetic foot ulcer with osteomyelitis of the distal phalanx of the great left toe -podiatry consult -diabetes management 10. Encephalopathy +/- CVA: Acute to subacute right occipital lobe ischemic infarct per CT; awake, responsive -supportive 11. Anemia: likely chronic disease,doubt acute bleed; h/h lower -monitor -transfuse as needed 12. UTI: yeast -abx per sensitivities 13. Hypernatremia: -judicious fluids Patient seen and examined in collaboration with Dr. Vincent Brown Problems: Subjective 24 Hr Interval Summary Wound with min bleeding overnight, now no bleeding noted. 4 second cardiac pause during suctioning. currently in SR. s/p surgical debridement 03/08. comfortable on vent. Non verbal indicators of pain not present. No fevers, chills, vomiting, diarrhea. cp. Exam/Review of Systems Vital Signs Vitals Vital Signs Date Time Temp Pulse Resp B/P Pulse Ox O2 Delivery O2 Flow Rate FiO2 03/09/17 12:24 77 03/09/17 11:04 98.8 18 111/55 98 03/09/17 10:56 30 03/08/17 19:20 Mechanical Ventilator Intake and Output 03/08/17 03/08/17 03/09/17 15:00 23:00 07:00 Intake Total 90 ml 750 ml Output Total 405 ml 400 ml Balance -315 ml 350 ml Exam Free Text/Dictation Constitutional: alert, non-verbal, No distress Psych: other (flat affect) Head: atraumatic, normocephalic Eyes: PERRL ENMT: No mucosa pink and moist (dry) Neck: other (tracheostomy, no drainage peristoma), supple Respiratory: crackles/rales, diminished breath sounds Cardiovascular: regular rate and rhythm Gastrointestinal: non-tender, other (gtube), soft Musculoskeletal: muscle weakness Extremities: edema (BUE +2), normal pulses Neurological: other (nonverbal), No nl speech, No nl strength Skin: other (multiple wounds: sacrum with min/mod drainage, no bleeding noted see nurses notes and pictures) Results Result Diagram: 03/08/17 1437 03/09/17 1009 PERLA MUJICA NP Mar 09, 2017 14:09
--- NOTE | 2017-03-09 14:32 | PN ---
Date/Time of Note Date/Time of Note DATE: 03/09/17 TIME: 14:30 Assessment/Plan VTE Prophylaxis VTE Prophylaxis Intervention: SCD's Lines/Catheters [facility] Peripheral IV Central line still needed: Yes Urinary Cath still in place: No (CONDOM CATHETER) Assessment/Plan Chief Complaint/Hosp Course Patient status post wound debridement yesterday, remains hemodynamically stable , afebrile, tolerates G-tube feeding well. ASSESSMENT AND PLAN: -Recurrent UTI, continue antibiotics per ID. - Sacral decubitus ulcer, status post debridement by Dr. Brown. - Anemia of chronic disease, continue Epogen, continue to monitor H&H, transfuse as needed. - Possible recurrent sepsis, resolving. Continue antibiotics per ID. Dr [place] group is following infection disease consultation. - Dysphagia. S/p G-tube by Dr. Smith. Continue G-tube feeding, monitor residual. - Status post cardiopulmonary arrest on 12/09/2016 and 01/08/2017. Continue ventilatory support. - Anoxic encephalopathy. Continue Keppra. - Status post tracheostomy on 01/23/2017. Continue tracheostomy care. - End-stage renal disease. Continue hemodialysis per nephrology. - Paroxysmal atrial fibrillation. Continue Eliquis. - Diabetes mellitus type 2. Continue Lantus and NovoLog with sliding scale coverage with Accu-Cheks q. 4 hours. - Diabetic foot ulcer. Continue current wound care. - Osteomyelitis of the distal phalanx of the great left toe. Completed treatment for antibiotics. Further recommendations based on clinical course. Plan of care discussed with Dr. Heredia. Problems: Exam/Review of Systems Vital Signs Vitals Vital Signs Date Time Temp Pulse Resp B/P Pulse Ox O2 Delivery O2 Flow Rate FiO2 03/09/17 12:24 77 03/09/17 11:04 98.8 18 111/55 98 03/09/17 10:56 30 03/08/17 19:20 Mechanical Ventilator Intake and Output 03/08/17 03/08/17 03/09/17 15:00 23:00 07:00 Intake Total 90 ml 750 ml Output Total 405 ml 400 ml Balance -315 ml 350 ml Exam Constitutional: non-verbal Head: atraumatic, normocephalic ENMT: other (Nasogastric tube) Neck: other (Tracheostomy), supple Respiratory: diminished breath sounds Cardiovascular: nl pulses Gastrointestinal: non-tender, soft, GT Neurological: unresponsive Results Result Diagram: 03/08/17 1437 03/09/17 1009 Results 24 hrs Laboratory Tests Test 03/08/17 14:37 03/08/17 17:08 03/08/17 18:25 03/08/17 19:14 White Blood Count 10.2 Red Blood Count 2.78 L Hemoglobin 8.0 L Hematocrit 25.1 L Mean Corpuscular Volume 90.3 Mean Corpuscular Hemoglobin 28.8 L Mean Corpuscular Hemoglobin Concent 31.9 L Red Cell Distribution Width 14.6 H Platelet Count 167 Mean Platelet Volume 9.8 Neutrophils % 83.1 H Lymphocytes % 5.5 L Monocytes % 9.4 Eosinophils % 0.5 Basophils % 0.2 Nucleated Red Blood Cells % 0.0 Neutrophils # 8.5 H Lymphocytes # 0.6 L Monocytes # 1.0 H Eosinophils # 0.1 Basophils # 0.0 Nucleated Red Blood Cells # 0.0 Bedside Glucose 81 73 108 Test 03/08/17 21:35 03/08/17 21:52 03/09/17 00:32 03/09/17 05:26 Bedside Glucose 83 82 124 158 Test 03/09/17 09:53 03/09/17 10:09 03/09/17 13:14 Bedside Glucose 175 145 Sodium Level 145 H Potassium Level 3.4 L Chloride Level 99 Carbon Dioxide Level 33 H Anion Gap 16 Blood Urea Nitrogen 19 # Creatinine 0.50 L Glucose Level 169 Calcium Level 8.2 L Medications Medications Current Medications Ondansetron HCl (Zofran Inj) 4 mg Q6H PRN IV NAUSEA AND/OR VOMITING Last administered on 02/23/17 12:49; Admin Dose 4 MG; Start 12/02/16 at 22:30 Miscellaneous Information 1 ea NOTE XX ; Start 12/02/16 at 23:00 Glucose (Glutose) 15 gm Q15M PRN PO DECREASED GLUCOSE; Start 12/02/16 at 23:00 Glucose (Glutose) 22.5 gm Q15M PRN PO DECREASED GLUCOSE; Start 12/02/16 at 23: 00 Dextrose (D50w Syringe) 25 ml Q15M PRN IV DECREASED GLUCOSE Last administered on 03/08/17 05:34; Admin Dose 25 ML; Start 12/02/16 at 23:00 Dextrose (D50w Syringe) 50 ml Q15M PRN IV DECREASED GLUCOSE Last administered on 03/08/17 13:59; Admin Dose 50 ML; Start 12/02/16 at 23:00 Glucagon (Glucagen) 1 mg Q15M PRN IM DECREASED GLUCOSE; Start 12/02/16 at 23:00 Glucose (Glutose) 15 gm Q15M PRN BUCCAL DECREASED GLUCOSE; Start 12/02/16 at 23 :00 Acetaminophen (Tylenol Supp) 650 mg Q6H PRN [place] ELEVATED TEMPERATURE Last administered on 01/13/17 20:32; Admin Dose 650 MG; Start 12/09/16 at 17:00 Hydralazine HCl (Apresoline) 10 mg Q6H PRN IV SBP>150mm hg Last administered on 12/19/16 08:50; Admin Dose 10 MG; Start 12/11/16 at 10:30 Morphine Sulfate (morphine) 2 mg Q2H PRN IV PAIN LEVEL 4-7; Start 12/13/16 at 10 :00 Collagenase (Santyl) 1 applic DAILY TOP Last administered on 03/08/17 09:28; Admin Dose 1 APPLIC; Start 01/04/17 at 09:00 Metoprolol Tartrate (Lopressor) 5 mg Q4 PRN IV FOR H.R>110; Start 01/12/17 at 17:30 Acetaminophen (Tylenol Liquid) 650 mg Q6H PRN NGT PAIN AND OR ELEVATED TEMP Last administered on 03/06/17 21:32; Admin Dose 650 MG; Start 01/13/17 at 23:30 Acetaminophen/ Hydrocodone Bitart ([place] (5/325)) 1 tab Q6H PRN NGT PAIN LEVEL 4-7; Start 01/13/17 at 23:30 Levetiracetam (Keppra Liquid) 1,000 mg DAILY NGT Last administered on 09:47; Admin Dose 1,000 MG; Start 01/14/17 at 09:00 Meclizine HCl (Antivert) 25 mg TID PRN NGT dizziness; Start 01/13/17 at 20:00 Zolpidem Tartrate (Ambien) 5 mg HS PRN NGT INSOMNIA; Start 01/13/17 at 20:00 Metoprolol Tartrate (Lopressor) 12.5 mg BID NGT Last administered on 02/24/17 10:54; Admin Dose 12.5 MG; Start 01/24/17 at 21:00; Status Future Hold Nystatin (Nystatin Susp) 5 ml Q6 PO Last administered on 03/09/17 10:23; Admin Dose 5 ML; Start 01/31/17 at 12:00 Lansoprazole (Prevacid) 30 mg DAILY@06 GTB Last administered on 03/09/17 05:49 ; Admin Dose 30 MG; Start 02/09/17 at 06:00 Multivitamins (Multivitamin) 30 ml DAILY GTB Last administered on 03/09/17 09: 47; Admin Dose 30 ML; Start 02/14/17 at 16:30 Docusate Sodium (Colace Liquid Cup) 100 mg BID GTB Last administered on 09:47; Admin Dose 100 MG; Start 02/14/17 at 21:00 Amiodarone HCl (Cordarone) 200 mg DAILY GTB Last administered on 03/09/17 09: 49; Admin Dose 200 MG; Start 02/19/17 at 09:00 Ascorbic Acid (Vitamin C) 500 mg DAILY GTB Last administered on 03/09/17 09:48 ; Admin Dose 500 MG; Start 02/22/17 at 09:00 Insulin Glargine (Lantus) 56 unit DAILY@20 SC Last administered on 03/07/17 20 :00; Admin Dose 56 UNIT; Start 02/22/17 at 20:00 Insulin Aspart (Novolog Insulin Pen) NOVOLOG *MODERATE* ALGORI... Q4 SC Last administered on 03/09/17 13:18; Admin Dose 2 UNIT; Start 02/23/17 at 05:00 Metoclopramide HCl (Reglan) 5 mg Q6 IV Last administered on 03/09/17 13:17; Admin Dose 5 MG; Start 02/23/17 at 18:00 Apixaban 2.5 mg 2.5 mg BID GTB Last administered on 03/09/17 09:50; Admin Dose 2.5 MG; Start 03/03/17 at 21:00 Cefepime HCl/ Sodium Chloride (Maxipime/NS) 50 ml @ 100 mls/hr Q12 IVPB Last administered on 03/09/17 09:47; Admin Dose 100 MLS/HR; Start 03/04/17 at 12:00 Epoetin Kyler 6000 units 6,000 units MoWeFr@17 SC Last administered on 17:02; Admin Dose 6,000 UNITS; Start 03/07/17 at 17:00 Colistimethate Sodium 100 mg/ Sodium Chloride 100 ml @ 200 mls/hr Q24H IVPB Last administered on 03/08/17 21:24; Admin Dose 200 MLS/HR; Start 03/06/17 at 21:00 Potassium Chloride/Dextrose/ Sod Cl (D5-1/2ns + KCl 20 Meq) 1,000 ml @ 50 mls/ hr Q20H IV Last administered on 03/08/17 13:33; Admin Dose 50 MLS/HR; Start at 13:00 Sodium Hypochlorite (Dakin'S (Dilute 1/40%)) 1 applic DAILY IRR Last administered on 03/09/17 09:00; Admin Dose 1 APPLIC; Start 03/09/17 at 09:00 Fluconazole (Diflucan) 100 mg DAILY GTB ; Start 03/10/17 at 10:00 KIMBERLY NOYOLA Mar 09, 2017 14:32
[2017-03-09] MEDS: EPOETIN 3000 UNITS/1 ML INJ (ESRD) SC SCH (16:57)
[2017-03-09] MEDS: D5W-0.45 NACL + KCL 20 MEQ 1,000 ML IV SCH (17:34)
[2017-03-09] MEDS ORDERED: MIDAZOLAM 1 MG/ML 2 ML INJ ONE (18:02)
[2017-03-09] MEDS ORDERED: FENTAnyl 50 MCG/ML VIAL ONE (18:02)
[2017-03-09] MEDS: INSULIN GLARGINE [LANtus] 3 ML PEN SC SCH (20:43)
[2017-03-09] MEDS: COLISTIMETHATE 100 MG in SOD CHLORIDE 0.9% 100 ML IVPB SCH (21:16)
[2017-03-10] VITALS (24 sets, daily range): BP systolic 99–160; BP diastolic 55–76; PULSE 77–83; RESP 16–23
[2017-03-10] MEDS: NYSTATIN SUSP 5 ML CUP PO SCH ×4 (00:56→17:51)
[2017-03-10] MEDS: METOCLOPRAMIDE 10 MG INJ IV SCH ×4 (00:56→17:51)
[2017-03-10] MEDS: INSULIN ASPART [NOVOLOG] 3 ML PEN SC SCH ×6 (01:05→20:51)
[2017-03-10] MEDS: ALBUTEROL 18 GM INHALER INH SCH ×4 (01:36→20:15)
[2017-03-10] MEDS: D5W-0.45 NACL + KCL 20 MEQ 1,000 ML IV SCH (05:00)
[2017-03-10] MEDS: LANSOPRAZOLE 30 MG CAP GTB SCH (06:09)
[2017-03-10 07:56] LABS: BASOPHILS % 0.2 % (0.0-2.0); EOSINOPHILS # 0.1 10^3/ul (0.0-0.5); EOSINOPHILS % 0.8 % (0.0-7.0); HEMATOCRIT 30.4 % (42.0-52.0); HEMOGLOBIN 9.6 g/dl (14.0-18.0); MEAN CORPUSCULAR HEMOGLOBIN 27.5 pg (29.0-33.0); MEAN CORPUSCULAR HGB CONC 31.6 g/dl (32.0-37.0); MEAN CORPUSCULAR VOLUME 87.1 fl (82.0-101.0); MONOCYTE # 0.9 10^3/ul (0.3-0.9); MONOCYTES % 8.4 % (0.0-11.0); NEUTROPHIL # 8.5 10^3/ul (1.6-7.5); NEUTROPHILS % 79.3 % (39.0-77.0); PLATELET COUNT 210 10^3/UL (140-415); RED BLOOD COUNT 3.49 10^6/ul (4.70-6.10); RED CELL DISTRIBUTION WIDTH 18.3 % (11.5-14.5); WHITE BLOOD COUNT 10.7 10^3/ul (4.8-10.8)
[2017-03-10 08:35] LABS: CALCIUM 8.1 mg/dl (8.4-10.2); CREATININE 0.72 mg/dl (0.61-1.24); POTASSIUM 3.9 mmol/L (3.5-5.1)
[2017-03-10] MEDS: DOCUSATE SODIUM 10 MG/ML (10ML CUP) GTB SCH ×2 (09:44→20:35)
[2017-03-10] MEDS: MULTIVITAMINS 30 ML CUP GTB SCH (09:44)
[2017-03-10] MEDS: LEVETIRACETAM (100 MG/ML) 5ML CUP NGT SCH (09:45)
[2017-03-10] MEDS: COLLAGENASE 30 GM TUBE TOP SCH (09:46)
[2017-03-10] MEDS: ASCORBIC ACID 500 MG TAB GTB SCH (09:46)
[2017-03-10] MEDS: SODIUM HYPOCHLORITE 1/40% 1L IRRIG IRR SCH (09:47)
[2017-03-10] MEDS: APIXABAN 5 MG TABLET GTB SCH ×2 (09:47→20:35)
[2017-03-10] MEDS: FLUCONAZOLE 100 MG TAB GTB SCH (09:47)
[2017-03-10] MEDS: AMIODARONE 200 MG TAB GTB SCH (09:47)
[2017-03-10] MEDS: CEFEPIME HCL 0.5 GM in SOD CHLORIDE 0.9% 50 ML IVPB SCH ×2 (09:55→21:25)
--- NOTE | 2017-03-10 11:22 | CONS ---
Date/Time of Note Date/Time of Note DATE: 03/10/17 TIME: 11:12 Assessment/Plan Assessment/Plan Chief Complaint/Hosp Course - possible UTI due to carbapenemase-producing klebsiella and pseudomonas - probable colonization of the resp scotty by pseudomonas - probable colonization of the urinary tract by yeast - s/p recurrent sepsis due to pneumonia - treated with cefepime, tobramycin, and caspofungin - s/p recurrent pneumonia due to pseudomonas - s/p sepsis due to possible tracheobronchitis/pneumonia - funguria - thrush, persistent - recurrent cardiopulmonary arrest on 12/09/2016 and on 01/08/2017 - hypoxic respiratory failure, intubated for the 2nd time on 12/12/2016; extubated 12/18/2016; re-intubated for the 3rd time 01/08/2017, s/p tracheostomy 06/2017 - bleeding from trach site - resolved - acute on chronic anemia due to acute blood loss, requiring blood transfusion - 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 Blood cultures from HD catheter on 12/13/2016 are negative to date. 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 MRI on 12/06/2016 and bone scan on showed early OM of the distal phalanx of the left great toe and left fourth proximal phalanx. superficial swab grew inna only. At present, no e/o persistent infection - recurrent pleural effusion - s/p right pleural effusion s/p thoracentesis with .9L removed on 12/16/2016; ( Note: there is no pleural fluid cx since orders were placed after Right thoracentesis, and Left thoracentesis was not performed on 12/17/16 d/t insufficient fluid) - ARANZA on CKD that progressed to ESRD and started on HD from 12/09/2016 - oliguria - improved - A fib -> PAF - small nonreversible perfusion abnormality in the inferoapical and inferior carver; EF 36% per Lexiscan 12/24/2016 - severe , EF 40-45% per TTE 12/17/16 - DM - Hgb A1c 8.7% - HTN associated with DM - acute encephalopathy with anoxic brain injury - unstageable decubitus ulcer of coccyx, s/p excisional debridement of skin, subcutaneous, muscle, fascia, I&D of abscess on 03/08/2017 - dysphagia s/p G-tube placement 02/08/2017 NOTE: Pt completed 6 weeks (12/03/2016-01/15/2017) of antibiotics to treat early OM of the distal phalanx of the left great toe and left fourth proximal phalanx ; s/p pip/tazo 12/03/16-01/08/17; linezolid 01/08/17-01/20/17; caspofungin 01/12/17-01/21/17 and 02/04/17-02/17/17; tobramycin 02/04/2017- 02/15/17 for pseudomonas; cefepime 02/02/17-02/18/17 recommendations: - pending results: cultures of abscess of sacrococcyx, sensitivity of Pt's carbapenemase-producing klebsiella for colistin, tigecycline, ceftaz/miranda, ceftaroline/tazo (the sample was sent on 03/07/2017) - continue IV cefepime for pseudomonas in urine culture (03/04/2017). - continue IV colistin for carbapenemase-producing kleb (03/06/2017-). - for thrush, continue pGT fluconazole (03/09/2017-) and nystatin until thrush resolves - community development manager Kyleigh informed me that the director of Pt's insurance company [employer] and Dr. Heredia discussed Pt's disposition and that the decision was made to transfer him to [facility] today. She asked me to make my final recommendation on this Pt's antibiotic. I requested that Pt stay until the final result of wound culture of sacrococcyx becomes available but according to Kyleigh, it is not possible. I recommend that Pt remain colistin and cefepime for 7 more days. I recommend that Pt's primary physician and/or ID specialist at [facility] will follow up on the pending results (i.e. final result of wound culture of the sacrococcyx, sensitivity of Pt's carbapenemase-producing klebsiella for colistin, tigecycline, ceftaz/miranda, ceftaroline/tazo) and that his antibiotics and their duration be adjusted accordingly. I recommend CBC and BMP checked every 1-2 days while Pt's on antibacterial medications. - contact isolation for carbapenemase-producing klebsiella management d/w Kyleigh by phone management d/w Pt's RN Problems: Consultation Date/Type/Reason Admit Date/Time Dec 02, 2016 at 21:01 Initial Consult Date 12/03/16 Type of Consultation: ID Referring Provider: VIET HEREDIA MD 24 HR Interval Summary Subjective hx not possible: pt non-verbal Exam/Review of Systems Vital Signs Vitals Vital Signs Date Time Temp Pulse Resp B/P Pulse Ox O2 Delivery O2 Flow Rate FiO2 03/10/17 08:15 98.6 76 19 156/76 99 03/10/17 05:39 30 03/08/17 19:20 Mechanical Ventilator Intake and Output 03/09/17 03/09/17 03/10/17 15:00 23:00 07:00 Intake Total 300 ml 1350 ml 1162 ml Output Total 2300 ml 350 ml 800 ml Balance -2000 ml 1000 ml 362 ml Results Result Diagram: 03/10/17 0656 03/10/17 0656 Results 24 hrs Laboratory Tests Test 03/09/17 13:14 03/09/17 17:29 03/09/17 20:32 03/10/17 01:00 Bedside Glucose 145 167 175 160 Test 03/10/17 06:07 03/10/17 06:17 03/10/17 06:56 03/10/17 09:45 Bedside Glucose 138 132 Lab Scanned Report BLOOD TRANSFUSION White Blood Count 10.7 Red Blood Count 3.49 #L Hemoglobin 9.6 L Hematocrit 30.4 #L Mean Corpuscular Volume 87.1 Mean Corpuscular Hemoglobin 27.5 L Mean Corpuscular Hemoglobin Concent 31.6 L Red Cell Distribution Width 18.3 #H Platelet Count 210 # Mean Platelet Volume 10.0 Neutrophils % 79.3 H Lymphocytes % 9.0 L Monocytes % 8.4 Eosinophils % 0.8 Basophils % 0.2 Nucleated Red Blood Cells % 0.0 Neutrophils # 8.5 H Lymphocytes # 1.0 Monocytes # 0.9 Eosinophils # 0.1 Basophils # 0.0 Nucleated Red Blood Cells # 0.0 Sodium Level 145 H Potassium Level 3.9 Chloride Level 100 Carbon Dioxide Level 32 H Anion Gap 17 H Blood Urea Nitrogen 29 H Creatinine 0.72 Glucose Level 140 Calcium Level 8.1 L Medications Medications Current Medications Ondansetron HCl (Zofran Inj) 4 mg Q6H PRN IV NAUSEA AND/OR VOMITING Last administered on 02/23/17 12:49; Admin Dose 4 MG; Start 12/02/16 at 22:30 Miscellaneous Information 1 ea NOTE XX ; Start 12/02/16 at 23:00 Glucose (Glutose) 15 gm Q15M PRN PO DECREASED GLUCOSE; Start 12/02/16 at 23:00 Glucose (Glutose) 22.5 gm Q15M PRN PO DECREASED GLUCOSE; Start 12/02/16 at 23: 00 Dextrose (D50w Syringe) 25 ml Q15M PRN IV DECREASED GLUCOSE Last administered on 03/08/17 05:34; Admin Dose 25 ML; Start 12/02/16 at 23:00 Dextrose (D50w Syringe) 50 ml Q15M PRN IV DECREASED GLUCOSE Last administered on 03/08/17 13:59; Admin Dose 50 ML; Start 12/02/16 at 23:00 Glucagon (Glucagen) 1 mg Q15M PRN IM DECREASED GLUCOSE; Start 12/02/16 at 23:00 Glucose (Glutose) 15 gm Q15M PRN BUCCAL DECREASED GLUCOSE; Start 12/02/16 at 23 :00 Acetaminophen (Tylenol Supp) 650 mg Q6H PRN LA ELEVATED TEMPERATURE Last administered on 01/13/17 20:32; Admin Dose 650 MG; Start 12/09/16 at 17:00 Hydralazine HCl (Apresoline) 10 mg Q6H PRN IV SBP>150mm hg Last administered on 12/19/16 08:50; Admin Dose 10 MG; Start 12/11/16 at 10:30 Morphine Sulfate (morphine) 2 mg Q2H PRN IV PAIN LEVEL 4-7; Start 12/13/16 at 10 :00 Collagenase (Santyl) 1 applic DAILY TOP Last administered on 03/10/17 09:46; Admin Dose 1 APPLIC; Start 01/04/17 at 09:00 Metoprolol Tartrate (Lopressor) 5 mg Q4 PRN IV FOR H.R>110; Start 01/12/17 at 17:30 Acetaminophen (Tylenol Liquid) 650 mg Q6H PRN NGT PAIN AND OR ELEVATED TEMP Last administered on 03/06/17 21:32; Admin Dose 650 MG; Start 01/13/17 at 23:30 Acetaminophen/ Hydrocodone Bitart (He[place]rick (5/325)) 1 tab Q6H PRN NGT PAIN LEVEL 4-7; Start 01/13/17 at 23:30 Levetiracetam (Keppra Liquid) 1,000 mg DAILY NGT Last administered on 09:45; Admin Dose 1,000 MG; Start 01/14/17 at 09:00 Meclizine HCl (Antivert) 25 mg TID PRN NGT dizziness; Start 01/13/17 at 20:00 Zolpidem Tartrate (Ambien) 5 mg HS PRN NGT INSOMNIA; Start 01/13/17 at 20:00 Metoprolol Tartrate (Lopressor) 12.5 mg BID NGT Last administered on 02/24/17 10:54; Admin Dose 12.5 MG; Start 01/24/17 at 21:00; Status Future Hold Nystatin (Nystatin Susp) 5 ml Q6 PO Last administered on 03/10/17 06:08; Admin Dose 5 ML; Start 01/31/17 at 12:00 Lansoprazole (Prevacid) 30 mg DAILY@06 GTB Last administered on 03/10/17 06:09 ; Admin Dose 30 MG; Start 02/09/17 at 06:00 Multivitamins (Multivitamin) 30 ml DAILY GTB Last administered on 03/10/17 09: 44; Admin Dose 30 ML; Start 02/14/17 at 16:30 Docusate Sodium (Colace Liquid Cup) 100 mg BID GTB Last administered on 09:44; Admin Dose 100 MG; Start 02/14/17 at 21:00 Amiodarone HCl (Cordarone) 200 mg DAILY GTB Last administered on 03/10/17 09: 47; Admin Dose 200 MG; Start 02/19/17 at 09:00 Ascorbic Acid (Vitamin C) 500 mg DAILY GTB Last administered on 03/10/17 09:46 ; Admin Dose 500 MG; Start 02/22/17 at 09:00 Insulin Glargine (Lantus) 56 unit DAILY@20 SC Last administered on 03/09/17 20 :43; Admin Dose 56 UNIT; Start 02/22/17 at 20:00 Insulin Aspart (Novolog Insulin Pen) NOVOLOG *MODERATE* ALGORI... Q4 SC Last administered on 03/10/17 01:05; Admin Dose 2 UNIT; Start 02/23/17 at 05:00 Metoclopramide HCl (Reglan) 5 mg Q6 IV Last administered on 03/10/17 06:09; Admin Dose 5 MG; Start 02/23/17 at 18:00 Apixaban 2.5 mg 2.5 mg BID GTB Last administered on 03/10/17 09:47; Admin Dose 2.5 MG; Start 03/03/17 at 21:00 Cefepime HCl/ Sodium Chloride (Maxipime/NS) 50 ml @ 100 mls/hr Q12 IVPB Last administered on 03/10/17 09:55; Admin Dose 100 MLS/HR; Start 03/04/17 at 12:00 Epoetin Kyler 6000 units 6,000 units MoWeFr@17 SC Last administered on 16:57; Admin Dose 6,000 UNITS; Start 03/07/17 at 17:00 Colistimethate Sodium 100 mg/ Sodium Chloride 100 ml @ 200 mls/hr Q24H IVPB Last administered on 03/09/17 21:16; Admin Dose 200 MLS/HR; Start 03/06/17 at 21:00 Potassium Chloride/Dextrose/ Sod Cl (D5-1/2ns + KCl 20 Meq) 1,000 ml @ 50 mls/ hr Q20H IV Last administered on 03/09/17 17:34; Admin Dose 50 MLS/HR; Start at 13:00 Sodium Hypochlorite (Dakin'S (Dilute 1/40%)) 1 applic DAILY IRR Last administered on 03/10/17 09:47; Admin Dose 1 APPLIC; Start 03/09/17 at 09:00 Fluconazole (Diflucan) 100 mg DAILY GTB Last administered on 03/10/17 09:47; Admin Dose 100 MG; Start 03/10/17 at 10:00 CHRISTY LOPEZ M.D. Mar 10, 2017 11:22
--- NOTE | 2017-03-10 12:17 | DS ---
Date/Time of Note Date/Time of Note DATE: 03/10/17 TIME: 12:16 Discharge Summary Admission/Discharge Info Admit Date/Time Dec 02, 2016 at 21:01 Discharge Date/Time 03/10/17 Discharge Diagnosis - Sepsis with bacteremia. Dr. Zelaya is following in ID consultation. Continue antibiotics per ID. - Acute cystitis with MDR Proteus mirabilis. - Possible tracheobronchitis - Sinus bradycardia, Dr. Cobian is following and cardiology consultation. - Hyperkalemia, resolved - Status post cervical laminectomy for cervical and upper thoracic stenosis - History of cystic mass - Ventilator dependent respiratory failure with tracheostomy,Dr. Alvarez is following patient in pulmonology consultation. - Left lower extremity weakness, No acute process per imaging. Dr. Wright is neurology consultation is appreciated. - Dysphagia with G-tube. - Parkinson's disease, continue Sinemet. - Hypertension, continue benazepril. - Sacral decubitus stage III, continue offloading, nutrition optimization. Hx of Present Illness left toe pain s/p fall 1 week ago HPI This is a 66-year-old male with history of insulin-dependent diabetes was admitted in the [facility] with complain of pain in the left big toe 1 week. Per patient he fell almost week ago, and bruised his left big toe. He also stated that he did not feel any pain right away . And he was still able to bear weight on the left foot to stand up and walk. Then he started noticing a "blister" on the bottom of his left big toe after the fall. He started feeling pain in his left foot ever since then. Patient was seen by his primary provider and was given Augmentin for his left foot infection and the outcome was not successful. Patient was sent to the [facility] when after having CBC- WBCs were elevated to 13.7. He was sent here by PCP for further evaluation. Denies fever or chills. During assessment patient denies any chest pain, shortness of breath, fever, chills, dizziness, palpitations, abdominal pain, nausea, vomiting, focal weakness. Denies any pain on left foot. Patient is admitted under Dr. Heredia for further evaluation and treatment ROS All systems reviewed and are negative except as per history of present illness. Medications Home Meds Active Scripts Metformin* (Glucophage*) 500 Mg Tab, 500 MG PO BID WITH MEALS, #60 TAB Prov:RONAK ANDREA LANDSCAPE TECHNICIAN 11/26/14 Insulin Glargine* (Lantus*) 100 Unit/Ml Soln, 20 UNIT SC DAILY for 30 Days, EA Prov:RONAK ANDREA LANDSCAPE TECHNICIAN 11/26/14 Insulin Aspart* (Novolog Insulin Pen*) 100 Unit/Ml Soln, 30 UNIT SC WITH MEALS for 30 Days, EA Prov:RONAK ANDREA LANDSCAPE TECHNICIAN 11/26/14 Meclizine Hcl* (Antivert*) 25 Mg Tab, 25 MG PO TID Y for dizziness, #10 Prov:RONAK ANDREA LANDSCAPE TECHNICIAN 11/26/14 Aspirin* (Aspirin* EC) 81 Mg Tabec, 81 MG PO DAILY for 30 Days Prov:RONAK ANDREA LANDSCAPE TECHNICIAN 11/26/14 Reported Medications [[id number]] No Conflict Check, 0.5 TSP TOP Q6 Y for PRN 11/24/14 Gabapentin* (Gabapentin*) 800 Mg Tablet, 800 MG PO TID, TAB 11/24/14 Terazosin Hcl* (Terazosin Hcl*) 5 Mg Capsule, 5 MG PO HS, CAP 11/24/14 Benazepril Hcl* (Benazepril Hcl*) 40 Mg Tablet, 40 MG PO DAILY, TAB 11/24/14 Allergies Allergies: Coded Allergies: No Known Allergy (Unverified , 12/02/16) Hospital Course Patient with diabetes, respiratory failure comes in with sepsis. Patient given antibiotics and slowly improved. Patient remain on ventilator for respiratory failure. - possible UTI due to carbapenemase-producing klebsiella and pseudomonas - probable colonization of the resp scotty by pseudomonas - probable colonization of the urinary tract by yeast - s/p recurrent sepsis due to pneumonia - treated with cefepime, tobramycin, and caspofungin - s/p recurrent pneumonia due to pseudomonas - s/p sepsis due to possible tracheobronchitis/pneumonia - funguria - thrush, persistent - recurrent cardiopulmonary arrest on 12/09/2016 and on 01/08/2017 - hypoxic respiratory failure, intubated for the 2nd time on 12/12/2016; extubated 12/18/2016; re-intubated for the 3rd time 01/08/2017, s/p tracheostomy 06/2017 - bleeding from trach site - resolved - acute on chronic anemia due to acute blood loss, requiring blood transfusion - 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 Blood cultures from HD catheter on 12/13/2016 are negative to date. 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 MRI on 12/06/2016 and bone scan on showed early OM of the distal phalanx of the left great toe and left fourth proximal phalanx. superficial swab grew inna only. At present, no e/o persistent infection - recurrent pleural effusion - s/p right pleural effusion s/p thoracentesis with .9L removed on 12/16/2016; ( Note: there is no pleural fluid cx since orders were placed after Right thoracentesis, and Left thoracentesis was not performed on 12/17/16 d/t insufficient fluid) - ARANZA on CKD that progressed to ESRD and started on HD from 12/09/2016 - oliguria - improved - A fib -> PAF - small nonreversible perfusion abnormality in the inferoapical and inferior carver; EF 36% per Lexiscan 12/24/2016 - severe , EF 40-45% per TTE 12/17/16 - DM - Hgb A1c 8.7% - HTN associated with DM - acute encephalopathy with anoxic brain injury - unstageable decubitus ulcer of coccyx, s/p excisional debridement of skin, subcutaneous, muscle, fascia, I&D of abscess on 03/08/2017 - dysphagia s/p G-tube placement 02/08/2017 NOTE: Pt completed 6 weeks (12/03/2016-01/15/2017) of antibiotics to treat early OM of the distal phalanx of the left great toe and left fourth proximal phalanx ; s/p pip/tazo 12/03/16-01/08/17; linezolid 01/08/17-01/20/17; caspofungin 01/12/17-01/21/17 and 02/04/17-02/17/17; tobramycin 02/04/2017- 02/15/17 for pseudomonas; cefepime 02/02/17-02/18/17 recommendations: - pending results: cultures of abscess of sacrococcyx, sensitivity of Pt's carbapenemase-producing klebsiella for colistin, tigecycline, ceftaz/miranda, ceftaroline/tazo (the sample was sent on 03/07/2017) - continue IV cefepime for pseudomonas in urine culture (03/04/2017). - continue IV colistin for carbapenemase-producing kleb (03/06/2017-). - for thrush, continue pGT fluconazole (03/09/2017-) and nystatin until thrush resolves - manager contract Kyleigh informed me that the director of Pt's insurance company [employer] and Dr. Heredia discussed Pt's disposition and that the decision was made to transfer him to [facility] today. She asked me to make my final recommendation on this Pt's antibiotic. I requested that Pt stay until the final result of wound culture of sacrococcyx becomes available but according to Kyleigh, it is not possible. I recommend that Pt remain colistin and cefepime for 7 more days. I recommend that Pt's primary physician and/or ID specialist at [facility] will follow up on the pending results (i.e. final result of wound culture of the sacrococcyx, sensitivity of Pt's carbapenemase-producing klebsiella for colistin, tigecycline, ceftaz/miranda, ceftaroline/tazo) and that his antibiotics and their duration be adjusted accordingly. I recommend CBC and BMP checked every 1-2 days while Pt's on antibacterial medications. - contact isolation for carbapenemase-producing klebsiella management d/w Kyleigh by phone management d/w Pt's RN Home Meds Active Scripts Hydrocodone/Acetaminophen ([place] 5-325 Tablet) 1 Each Tablet, 1 EACH PO Q6 Y for PAIN LEVEL 6-10, #24 TAB Prov:YULIANA SIMMONS 12/30/16 Metronidazole (Flagyl) 500 Mg Tab, 500 MG PO TID for 42 Days, TAB Prov:YULIANA SIMMONS 12/30/16 Levofloxacin* (Levaquin*) 500 Mg Tablet, 500 MG PO DAILY for 42 Days, TAB Prov:YULIANA SIMMONS 12/30/16 Metformin* (Glucophage*) 500 Mg Tab, 500 MG PO BID WITH MEALS, #60 TAB Prov:RONAK ANDREA LANDSCAPE TECHNICIAN 11/26/14 Insulin Glargine* (Lantus*) 100 Unit/Ml Soln, 20 UNIT SC DAILY for 30 Days, EA Prov:RONAK ANDREA LANDSCAPE TECHNICIAN 11/26/14 Insulin Aspart* (Novolog Insulin Pen*) 100 Unit/Ml Soln, 30 UNIT SC WITH MEALS for 30 Days, EA Prov:RONAK ANDREA LANDSCAPE TECHNICIAN 11/26/14 Meclizine Hcl* (Antivert*) 25 Mg Tab, 25 MG PO TID Y for dizziness, #10 Prov:RONAK ANDREA LANDSCAPE TECHNICIAN 11/26/14 Aspirin* (Aspirin* EC) 81 Mg Tabec, 81 MG PO DAILY for 30 Days Prov:RONAK ANDREA LANDSCAPE TECHNICIAN 11/26/14 Reported Medications [[id number]] No Conflict Check, 0.5 TSP TOP Q6 Y for PRN 11/24/14 Gabapentin* (Gabapentin*) 800 Mg Tablet, 800 MG PO TID, TAB 11/24/14 Terazosin Hcl* (Terazosin Hcl*) 5 Mg Capsule, 5 MG PO HS, CAP 11/24/14 Benazepril Hcl* (Benazepril Hcl*) 40 Mg Tablet, 40 MG PO DAILY, TAB 11/24/14 Primary Care Provider Not On Staff Doctor Pending Labs Laboratory Tests Test 03/09/17 13:14 03/09/17 17:29 03/09/17 20:32 03/10/17 01:00 Bedside Glucose 145mg/dL (70-220) 167mg/dL (70-220) 175mg/dL (70-220) 160mg/dL (70-220) Test 03/10/17 06:07 03/10/17 06:17 03/10/17 06:56 03/10/17 09:45 Bedside Glucose 138mg/dL (70-220) 132mg/dL (70-220) Lab Scanned Report BLOOD [id number] White Blood Count 10.710^3/ul (4.8-10.8) Red Blood Count 3.4910^6/ul (4.70-6.10) Hemoglobin 9.6g/dl (14.0-18.0) Hematocrit 30.4% (42.0-52.0) Mean Corpuscular Volume 87.1fl (82.0-101.0) Mean Corpuscular Hemoglobin 27.5pg (29.0-33.0) Mean Corpuscular Hemoglobin Concent 31.6g/dl (32.0-37.0) Red Cell Distribution Width 18.3% (11.5-14.5) Platelet Count 12460^3/UL (140-415) Mean Platelet Volume 10.0fl (7.4-10.4) Neutrophils % 79.3% (39.0-77.0) Lymphocytes % 9.0% (15.0-51.0) Monocytes % 8.4% (0.0-11.0) Eosinophils % 0.8% (0.0-7.0) Basophils % 0.2% (0.0-2.0) Nucleated Red Blood Cells % 0.0/100WBC (0.0-0.0) Neutrophils # 8.510^3/ul (1.6-7.5) Lymphocytes # 1.010^3/ul (0.8-2.9) Monocytes # 0.910^3/ul (0.3-0.9) Eosinophils # 0.110^3/ul (0.0-0.5) Basophils # 0.010^3/ul (0.0-0.1) Nucleated Red Blood Cells # 0.010^3/ul (0.0-0.0) Sodium Level 145mmol/L (135-144) Potassium Level 3.9mmol/L (3.5-5.1) Chloride Level 100mmol/L (97-110) Carbon Dioxide Level 32mmol/L (21-31) Anion Gap 17 (8-16) Blood Urea Nitrogen 29mg/dl (7-20) Creatinine 0.72mg/dl (0.61-1.24) Glucose Level 140mg/dl (70-220) Calcium Level 8.1mg/dl (8.4-10.2) ELTON MARMOLEJO Mar 10, 2017 12:17
--- NOTE | 2017-03-10 13:17 | PN ---
Date/Time of Note Date/Time of Note DATE: 03/10/17 TIME: 13:14 Assessment/Plan Lines/Catheters IV Catheter Type (from [facility]): Saline Lock Molina in Place (from [facility]): No (condom cath) Assessment/Plan Chief Complaint/Hosp Course 1. Multiple wounds with slough and debris; sacrococcygeal stage IV :s/p debridement 03/08 with significant amount of pus; specimens sent: gangrene -specialty mattress -frequent turning and offloading -optimize nutrition -vitamin C/ short term zinc 2. Sepsis: multifactorial: multiple wounds +pneumonia + fungemia+ uti (yeast) + other; wbc normalized -abx per sensitivity -supportive 3. Respiratory failure s/p tracheostomy: 2/2 pna + pl effusions; s/p arrests x2 4. G-tube placement: tolerating tf 5. Thrush: on nystatin 6. ESRD: on dialysis - per nephrology 7. Paroxysmal atrial fibrillation. Eliquis; now on SR 8. Diabetes: on lantus and sliding scale -blood sugar optimization 9. Diabetic foot ulcer with osteomyelitis of the distal phalanx of the great left toe -podiatry consult -diabetes management 10. Encephalopathy +/- CVA: Acute to subacute right occipital lobe ischemic infarct per CT; awake, responsive -supportive 11. Anemia: likely chronic disease,doubt acute bleed; h/h stable -monitor -transfuse as needed 12. UTI: yeast -abx per sensitivities 13. Hypernatremia: -judicious fluids Patient seen and examined in collaboration with Dr. Vincent Brown Problems: Subjective 24 Hr Interval Summary Wound with min drainage. s/p surgical debridement 03/08. comfortable on vent. Non verbal indicators of pain not present. No fevers, chills, vomiting, diarrhea. cp. DC planning today Exam/Review of Systems Vital Signs Vitals Vital Signs Date Time Temp Pulse Resp B/P Pulse Ox O2 Delivery O2 Flow Rate FiO2 03/10/17 12:12 79 03/10/17 11:37 98.2 19 136/63 100 03/10/17 11:20 30 03/08/17 19:20 Mechanical Ventilator Intake and Output 03/09/17 03/09/17 03/10/17 15:00 23:00 07:00 Intake Total 300 ml 1350 ml 1162 ml Output Total 2300 ml 350 ml 800 ml Balance -2000 ml 1000 ml 362 ml Exam Free Text/Dictation Constitutional: alert, non-verbal, No distress Psych: other (flat affect) Head: atraumatic, normocephalic Eyes: PERRL ENMT: No mucosa pink and moist (dry) Neck: other (tracheostomy, no drainage peristoma), supple Respiratory: crackles/rales, diminished breath sounds Cardiovascular: regular rate and rhythm Gastrointestinal: non-tender, other (gtube), soft Musculoskeletal: muscle weakness Extremities: edema (BUE +2), normal pulses Neurological: other (nonverbal), No nl speech, No nl strength Skin: other (multiple wounds: sacrum with min/mod drainage, no bleeding noted see nurses notes and pictures) Results Result Diagram: 03/10/17 0656 03/10/17 0656 PERLA MUJICA NP Mar 10, 2017 13:17
--- NOTE | 2017-03-10 13:23 | CONS ---
Date/Time of Note Date/Time of Note DATE: 03/10/17 TIME: 13:21 Assessment/Plan Assessment/Plan Chief Complaint/Hosp Course IMPRESSION: 1. Atrial fibrillation-Having episodes of PAF with reasonable rate control. Currently remains in SR. Had pause approximately 4 during suctioning. No recurrent pause since holding of BB 2. Hypotension-overall improved and stable 3. Abnormal electrocardiogram with inferolateral T-wave inversions. 4. Respiratory failure-s/p trach placement 5. Nonhealing toe ulceration-vascular following 6. Peripheral arterial disease by arterial ultrasound of the lower extremities this admission. 7. Diabetes mellitus. 8. Fevers. 9. Positive troponin-downtrended 10.Bradycardia-improved/stable 11.-severe by echo 12.Cardiomyopathy-EF 40-45% by echo/36% by stress with no ischemia but positive scar. EF <30% by echo post arrest 13.Encephalopathy-anoxic 14. s/p cardiopulmonary arrest 01/08 15. Pre-op-for debridemnt of decubitis ulcer- Patient at this time has no definite cardiac contraindication to proceeding to OR for debridement but is at high risk for CV complications. Now post-op s/p debridment without copmplications day#2 16. Hypernatremia Recc: -Tele -serial ecg -HD for volume removal as tolerated ongoing today -Continue PO amio in attempt to maintain SR, daily and follow for any recurrent pauses -Will hold on afterload reduction given severe and thus fixed afterload at valve orifice -Continue to hold BB and follow for recurrent pause -Eliquis now again resumed Problems: Consultation Date/Type/Reason Admit Date/Time Dec 02, 2016 at 21:01 Initial Consult Date 12/03/16 Type of Consultation: cardiology Reason for Consultation cardiomyopathy//CHF Referring Provider: VIET PARKER MD Exam/Review of Systems Vital Signs Vitals Vital Signs Date Time Temp Pulse Resp B/P Pulse Ox O2 Delivery O2 Flow Rate FiO2 03/10/17 12:12 79 03/10/17 11:37 98.2 19 136/63 100 03/10/17 11:20 30 03/08/17 19:20 Mechanical Ventilator Intake and Output 03/09/17 03/09/17 03/10/17 15:00 23:00 07:00 Intake Total 300 ml 1350 ml 1162 ml Output Total 2300 ml 350 ml 800 ml Balance -2000 ml 1000 ml 362 ml Exam Review of Systems: CONSTITUTIONAL: No fevers, chills. PULMONARY: trached CARDIOVASCULAR: No chest pain/palpitations GASTROINTESTINAL: No nausea/vomiting. GENITOURINARY: No hematuria/dysuria. MUSCULOSKELETAL: No myagias/arthalgias. PSYCHIATRIC: The patient denies depression. NEUROLOGIC: lethargic Constitutional: alert Psych: no complaints Head: normocephalic ENMT: mucosa pink and moist Neck: jvd (8-9 cm water), other (trach in place), supple Respiratory: diminished breath sounds (at bases/B) Cardiovascular: regular rate and rhythm Gastrointestinal: non-tender, other (G tube), soft Musculoskeletal: muscle weakness (generalized) Extremities: edema (none) Neurological: other (encephalopathic) Results Result Diagram: 03/10/17 0656 03/10/17 0656 Results 24 hrs Laboratory Tests Test 03/09/17 17:29 03/09/17 20:32 03/10/17 01:00 03/10/17 06:07 Bedside Glucose 167 175 160 138 Test 03/10/17 06:17 03/10/17 06:56 03/10/17 09:45 Lab Scanned Report BLOOD TRANSFUSION White Blood Count 10.7 Red Blood Count 3.49 #L Hemoglobin 9.6 L Hematocrit 30.4 #L Mean Corpuscular Volume 87.1 Mean Corpuscular Hemoglobin 27.5 L Mean Corpuscular Hemoglobin Concent 31.6 L Red Cell Distribution Width 18.3 #H Platelet Count 210 # Mean Platelet Volume 10.0 Neutrophils % 79.3 H Lymphocytes % 9.0 L Monocytes % 8.4 Eosinophils % 0.8 Basophils % 0.2 Nucleated Red Blood Cells % 0.0 Neutrophils # 8.5 H Lymphocytes # 1.0 Monocytes # 0.9 Eosinophils # 0.1 Basophils # 0.0 Nucleated Red Blood Cells # 0.0 Sodium Level 145 H Potassium Level 3.9 Chloride Level 100 Carbon Dioxide Level 32 H Anion Gap 17 H Blood Urea Nitrogen 29 H Creatinine 0.72 Glucose Level 140 Calcium Level 8.1 L Bedside Glucose 132 Medications Medications Current Medications Ondansetron HCl (Zofran Inj) 4 mg Q6H PRN IV NAUSEA AND/OR VOMITING Last administered on 02/23/17 12:49; Admin Dose 4 MG; Start 12/02/16 at 22:30 Miscellaneous Information 1 ea NOTE XX ; Start 12/02/16 at 23:00 Glucose (Glutose) 15 gm Q15M PRN PO DECREASED GLUCOSE; Start 12/02/16 at 23:00 Glucose (Glutose) 22.5 gm Q15M PRN PO DECREASED GLUCOSE; Start 12/02/16 at 23: 00 Dextrose (D50w Syringe) 25 ml Q15M PRN IV DECREASED GLUCOSE Last administered on 03/08/17 05:34; Admin Dose 25 ML; Start 12/02/16 at 23:00 Dextrose (D50w Syringe) 50 ml Q15M PRN IV DECREASED GLUCOSE Last administered on 03/08/17 13:59; Admin Dose 50 ML; Start 12/02/16 at 23:00 Glucagon (Glucagen) 1 mg Q15M PRN IM DECREASED GLUCOSE; Start 12/02/16 at 23:00 Glucose (Glutose) 15 gm Q15M PRN BUCCAL DECREASED GLUCOSE; Start 12/02/16 at 23 :00 Acetaminophen (Tylenol Supp) [address] ELEVATED TEMPERATURE Last administered on 01/13/17 20:32; Admin Dose 650 MG; Start 12/09/16 at 17:00 Hydralazine HCl (Apresoline) 10 mg Q6H PRN IV SBP>150mm hg Last administered on 12/19/16 08:50; Admin Dose 10 MG; Start 12/11/16 at 10:30 Morphine Sulfate (morphine) 2 mg Q2H PRN IV PAIN LEVEL 4-7; Start 12/13/16 at 10 :00 Collagenase (Santyl) 1 applic DAILY TOP Last administered on 03/10/17 09:46; Admin Dose 1 APPLIC; Start 01/04/17 at 09:00 Metoprolol Tartrate (Lopressor) 5 mg Q4 PRN IV FOR H.R>110; Start 01/12/17 at 17:30 Acetaminophen (Tylenol Liquid) 650 mg Q6H PRN NGT PAIN AND OR ELEVATED TEMP Last administered on 03/06/17 21:32; Admin Dose 650 MG; Start 01/13/17 at 23:30 Acetaminophen/ Hydrocodone Bitart ([place] (5/325)) 1 tab Q6H PRN NGT PAIN LEVEL 4-7; Start 01/13/17 at 23:30 Levetiracetam (Keppra Liquid) 1,000 mg DAILY NGT Last administered on 09:45; Admin Dose 1,000 MG; Start 01/14/17 at 09:00 Meclizine HCl (Antivert) 25 mg TID PRN NGT dizziness; Start 01/13/17 at 20:00 Zolpidem Tartrate (Ambien) 5 mg HS PRN NGT INSOMNIA; Start 01/13/17 at 20:00 Metoprolol Tartrate (Lopressor) 12.5 mg BID NGT Last administered on 02/24/17 10:54; Admin Dose 12.5 MG; Start 01/24/17 at 21:00; Status Future Hold Nystatin (Nystatin Susp) 5 ml Q6 PO Last administered on 03/10/17 12:07; Admin Dose 5 ML; Start 01/31/17 at 12:00 Lansoprazole (Prevacid) 30 mg DAILY@06 GTB Last administered on 03/10/17 06:09 ; Admin Dose 30 MG; Start 02/09/17 at 06:00 Multivitamins (Multivitamin) 30 ml DAILY GTB Last administered on 03/10/17 09: 44; Admin Dose 30 ML; Start 02/14/17 at 16:30 Docusate Sodium (Colace Liquid Cup) 100 mg BID GTB Last administered on 09:44; Admin Dose 100 MG; Start 02/14/17 at 21:00 Amiodarone HCl (Cordarone) 200 mg DAILY GTB Last administered on 03/10/17 09: 47; Admin Dose 200 MG; Start 02/19/17 at 09:00 Ascorbic Acid (Vitamin C) 500 mg DAILY GTB Last administered on 03/10/17 09:46 ; Admin Dose 500 MG; Start 02/22/17 at 09:00 Insulin Glargine (Lantus) 56 unit DAILY@20 SC Last administered on 03/09/17 20 :43; Admin Dose 56 UNIT; Start 02/22/17 at 20:00 Insulin Aspart (Novolog Insulin Pen) NOVOLOG *MODERATE* ALGORI... Q4 SC Last administered on 03/10/17 01:05; Admin Dose 2 UNIT; Start 02/23/17 at 05:00 Metoclopramide HCl (Reglan) 5 mg Q6 IV Last administered on 03/10/17 12:06; Admin Dose 5 MG; Start 02/23/17 at 18:00 Apixaban 2.5 mg 2.5 mg BID GTB Last administered on 03/10/17 09:47; Admin Dose 2.5 MG; Start 03/03/17 at 21:00 Cefepime HCl/ Sodium Chloride (Maxipime/NS) 50 ml @ 100 mls/hr Q12 IVPB Last administered on 03/10/17 09:55; Admin Dose 100 MLS/HR; Start 03/04/17 at 12:00 Epoetin Kyler 6000 units 6,000 units MoWeFr@17 SC Last administered on 16:57; Admin Dose 6,000 UNITS; Start 03/07/17 at 17:00 Colistimethate Sodium 100 mg/ Sodium Chloride 100 ml @ 200 mls/hr Q24H IVPB Last administered on 03/09/17 21:16; Admin Dose 200 MLS/HR; Start 03/06/17 at 21:00 Potassium Chloride/Dextrose/ Sod Cl (D5-1/2ns + KCl 20 Meq) 1,000 ml @ 50 mls/ hr Q20H IV Last administered on 03/09/17 17:34; Admin Dose 50 MLS/HR; Start at 13:00 Sodium Hypochlorite (Dakin'S (Dilute 1/40%)) 1 applic DAILY IRR Last administered on 03/10/17 09:47; Admin Dose 1 APPLIC; Start 03/09/17 at 09:00 Fluconazole (Diflucan) 100 mg DAILY GTB Last administered on 03/10/17 09:47; Admin Dose 100 MG; Start 03/10/17 at 10:00 VICENTE LESLIE Mar 10, 2017 13:23
--- NOTE | 2017-03-10 16:42 | CONS ---
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 Blood cultures from HD catheter on 12/13/2016 are negative to date. 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 MRI on 12/06/2016 and bone scan on showed early OM of the distal phalanx of the left great toe and left fourth proximal phalanx. superficial swab grew inna only - s/p right pleural effusion s/p thoracentesis with .9L removed on 12/16/2016 - severe , EF 40-45% per TTE 12/17/16 - DM - Hgb A1c 8.7% - HTN associated with DM - sp Tracheostomy site bleeding Plan: will conitnue HD on MWF - HD ordered for tomorrow continue epogen for anemia awaiting debridement of wound - possible plan on Tuesday s/p Tracheostomy, pt will need HD palcement at a unit where they can do a HD for pt with tracheostomy and PEG tube placemen t- piano case and bench assembler worked on it pt has severe , very labile BP sometimes with HD will continue to follow up for HD need Consultation Date/Type/Reason Admit Date/Time Dec 02, 2016 at 21:01 Initial Consult Date Type of Consultation: NEPHROLOGY Referring Provider: VIET PARKER MD 24 HR Interval Summary Free Text/Dictation no acute events, Plan for HD tomorrow Exam/Review of Systems Vital Signs Vitals Vital Signs Date Time Temp Pulse Resp B/P Pulse Ox O2 Delivery O2 Flow Rate FiO2 03/10/17 15:22 98.1 79 19 160/74 98 03/10/17 11:20 30 03/08/17 19:20 Mechanical Ventilator Intake and Output 03/09/17 03/09/17 03/10/17 15:00 23:00 07:00 Intake Total 300 ml 1350 ml 1162 ml Output Total 2300 ml 350 ml 800 ml Balance -2000 ml 1000 ml 362 ml Exam Constitutional: non-verbal Psych: confusion Head: atraumatic, normocephalic+ tracheostomy Respiratory: clear to auscultation, normal air movement Cardiovascular: nl pulses, regular rate and rhythm Gastrointestinal: non-tender, soft Extremities: No edema Neurological: lethargic Skin: rash or lesions (decubitus ulcer is clean, non-purulent, well vascularized tissue) Results Result Diagram: 03/10/17 0656 03/10/17 0656 Results 24 hrs Laboratory Tests Test 03/09/17 17:29 03/09/17 20:32 03/10/17 01:00 03/10/17 06:07 Bedside Glucose 167 175 160 138 Test 03/10/17 06:17 03/10/17 06:56 03/10/17 09:45 03/10/17 13:24 Lab Scanned Report BLOOD TRANSFUSION White Blood Count 10.7 Red Blood Count 3.49 #L Hemoglobin 9.6 L Hematocrit 30.4 #L Mean Corpuscular Volume 87.1 Mean Corpuscular Hemoglobin 27.5 L Mean Corpuscular Hemoglobin Concent 31.6 L Red Cell Distribution Width 18.3 #H Platelet Count 210 # Mean Platelet Volume 10.0 Neutrophils % 79.3 H Lymphocytes % 9.0 L Monocytes % 8.4 Eosinophils % 0.8 Basophils % 0.2 Nucleated Red Blood Cells % 0.0 Neutrophils # 8.5 H Lymphocytes # 1.0 Monocytes # 0.9 Eosinophils # 0.1 Basophils # 0.0 Nucleated Red Blood Cells # 0.0 Sodium Level 145 H Potassium Level 3.9 Chloride Level 100 Carbon Dioxide Level 32 H Anion Gap 17 H Blood Urea Nitrogen 29 H Creatinine 0.72 Glucose Level 140 Calcium Level 8.1 L Bedside Glucose 132 151 Medications Medications Current Medications Ondansetron HCl (Zofran Inj) 4 mg Q6H PRN IV NAUSEA AND/OR VOMITING Last administered on 02/23/17t 12:49; Admin Dose 4 MG; Start 12/02/16 at 22:30 Miscellaneous Information 1 ea NOTE XX ; Start 12/02/16 at 23:00 Glucose (Glutose) 15 gm Q15M PRN PO DECREASED GLUCOSE; Start 12/02/16 at 23:00 Glucose (Glutose) 22.5 gm Q15M PRN PO DECREASED GLUCOSE; Start 12/02/16 at 23: 00 Dextrose (D50w Syringe) 25 ml Q15M PRN IV DECREASED GLUCOSE Last administered on 03/08/17 05:34; Admin Dose 25 ML; Start 12/02/16 at 23:00 Dextrose (D50w Syringe) 50 ml Q15M PRN IV DECREASED GLUCOSE Last administered on 03/08/17 13:59; Admin Dose 50 ML; Start 12/02/16 at 23:00 Glucagon (Glucagen) 1 mg Q15M PRN IM DECREASED GLUCOSE; Start 12/02/16 at 23:00 Glucose (Glutose) 15 gm Q15M PRN BUCCAL DECREASED GLUCOSE; Start 12/02/16 at 23 :00 Acetaminophen (Tylenol Supp) 650 mg Q6H PRN [place] ELEVATED TEMPERATURE Last administered on 01/13/17 20:32; Admin Dose 650 MG; Start 12/09/16 at 17:00 Hydralazine HCl (Apresoline) 10 mg Q6H PRN IV SBP>150mm hg Last administered on 12/19/16 08:50; Admin Dose 10 MG; Start 12/11/16 at 10:30 Morphine Sulfate (morphine) 2 mg Q2H PRN IV PAIN LEVEL 4-7; Start 12/13/16 at 10 :00 Collagenase (Santyl) 1 applic DAILY TOP Last administered on 03/10/17 09:46; Admin Dose 1 APPLIC; Start 01/04/17 at 09:00 Metoprolol Tartrate (Lopressor) 5 mg Q4 PRN IV FOR H.R>110; Start 01/12/17 at 17:30 Acetaminophen (Tylenol Liquid) 650 mg Q6H PRN NGT PAIN AND OR ELEVATED TEMP Last administered on 03/06/17 21:32; Admin Dose 650 MG; Start 01/13/17 at 23:30 Acetaminophen/ Hydrocodone Bitart ([place] (5/325)) 1 tab Q6H PRN NGT PAIN LEVEL 4-7; Start 01/13/17 at 23:30 Levetiracetam (Keppra Liquid) 1,000 mg DAILY NGT Last administered on 09:45; Admin Dose 1,000 MG; Start 01/14/17 at 09:00 Meclizine HCl (Antivert) 25 mg TID PRN NGT dizziness; Start 01/13/17 at 20:00 Zolpidem Tartrate (Ambien) 5 mg HS PRN NGT INSOMNIA; Start 01/13/17 at 20:00 Metoprolol Tartrate (Lopressor) 12.5 mg BID NGT Last administered on 02/24/17 10:54; Admin Dose 12.5 MG; Start 01/24/17 at 21:00; Status Future Hold Nystatin (Nystatin Susp) 5 ml Q6 PO Last administered on 03/10/17 12:07; Admin Dose 5 ML; Start 01/31/17 at 12:00 Lansoprazole (Prevacid) 30 mg DAILY@06 GTB Last administered on 03/10/17 06:09 ; Admin Dose 30 MG; Start 02/09/17 at 06:00 Multivitamins (Multivitamin) 30 ml DAILY GTB Last administered on 03/10/17 09: 44; Admin Dose 30 ML; Start 02/14/17 at 16:30 Docusate Sodium (Colace Liquid Cup) 100 mg BID GTB Last administered on 09:44; Admin Dose 100 MG; Start 02/14/17 at 21:00 Amiodarone HCl (Cordarone) 200 mg DAILY GTB Last administered on 03/10/17 09: 47; Admin Dose 200 MG; Start 02/19/17 at 09:00 Ascorbic Acid (Vitamin C) 500 mg DAILY GTB Last administered on 03/10/17 09:46 ; Admin Dose 500 MG; Start 02/22/17 at 09:00 Insulin Glargine (Lantus) 56 unit DAILY@20 SC Last administered on 03/09/17 20 :43; Admin Dose 56 UNIT; Start 02/22/17 at 20:00 Insulin Aspart (Novolog Insulin Pen) NOVOLOG *MODERATE* ALGORI... Q4 SC Last administered on 03/10/17 13:31; Admin Dose 2 UNIT; Start 02/23/17 at 05:00 Metoclopramide HCl (Reglan) 5 mg Q6 IV Last administered on 03/10/17 12:06; Admin Dose 5 MG; Start 02/23/17 at 18:00 Apixaban 2.5 mg 2.5 mg BID GTB Last administered on 03/10/17 09:47; Admin Dose 2.5 MG; Start 03/03/17 at 21:00 Cefepime HCl/ Sodium Chloride (Maxipime/NS) 50 ml @ 100 mls/hr Q12 IVPB Last administered on 03/10/17 09:55; Admin Dose 100 MLS/HR; Start 03/04/17 at 12:00 Epoetin Kyler 6000 units 6,000 units MoWeFr@17 SC Last administered on 16:57; Admin Dose 6,000 UNITS; Start 03/07/17 at 17:00 Colistimethate Sodium 100 mg/ Sodium Chloride 100 ml @ 200 mls/hr Q24H IVPB Last administered on 03/09/17 21:16; Admin Dose 200 MLS/HR; Start 03/06/17 at 21:00 Potassium Chloride/Dextrose/ Sod Cl (D5-1/2ns + KCl 20 Meq) 1,000 ml @ 50 mls/ hr Q20H IV Last administered on 03/09/17 17:34; Admin Dose 50 MLS/HR; Start at 13:00 Sodium Hypochlorite (Dakin'S (Dilute 1/40%)) 1 applic DAILY IRR Last administered on 03/10/17 09:47; Admin Dose 1 APPLIC; Start 03/09/17 at 09:00 Fluconazole (Diflucan) 100 mg DAILY GTB Last administered on 03/10/17 09:47; Admin Dose 100 MG; Start 03/10/17 at 10:00 TASHIA MCGARRY MD Mar 10, 2017 16:42
--- NOTE | 2017-03-10 20:18 | CONS ---
Date/Time of Note Date/Time of Note DATE: 03/10/17 TIME: 20:11 Assessment/Plan Assessment/Plan Chief Complaint/Hosp Course - possible UTI due to carbapenemase-producing klebsiella and pseudomonas - probable colonization of the resp scotty by pseudomonas - probable colonization of the urinary tract by yeast - s/p recurrent sepsis due to pneumonia - treated with cefepime, tobramycin, and caspofungin - s/p recurrent pneumonia due to pseudomonas - s/p sepsis due to possible tracheobronchitis/pneumonia - funguria - thrush, persistent - recurrent cardiopulmonary arrest on 12/09/2016 and on 01/08/2017 - hypoxic respiratory failure, intubated for the 2nd time on 12/12/2016; extubated 12/18/2016; re-intubated for the 3rd time 01/08/2017, s/p tracheostomy 06/2017 - bleeding from trach site - resolved - acute on chronic anemia due to acute blood loss, requiring blood transfusion - 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 Blood cultures from HD catheter on 12/13/2016 are negative to date. 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 MRI on 12/06/2016 and bone scan on showed early OM of the distal phalanx of the left great toe and left fourth proximal phalanx. superficial swab grew inna only. At present, no e/o persistent infection - recurrent pleural effusion - s/p right pleural effusion s/p thoracentesis with .9L removed on 12/16/2016; ( Note: there is no pleural fluid cx since orders were placed after Right thoracentesis, and Left thoracentesis was not performed on 12/17/16 d/t insufficient fluid) - ARANZA on CKD that progressed to ESRD and started on HD from 12/09/2016 - oliguria - improved - A fib -> PAF - small nonreversible perfusion abnormality in the inferoapical and inferior carver; EF 36% per Lexiscan 12/24/2016 - severe , EF 40-45% per TTE 12/17/16 - DM - Hgb A1c 8.7% - HTN associated with DM - acute encephalopathy with anoxic brain injury - unstageable decubitus ulcer of coccyx, s/p excisional debridement of skin, subcutaneous, muscle, fascia, I&D of abscess on 03/08/2017 - dysphagia s/p G-tube placement 02/08/2017 NOTE: Pt completed 6 weeks (12/03/2016-01/15/2017) of antibiotics to treat early OM of the distal phalanx of the left great toe and left fourth proximal phalanx ; s/p pip/tazo 12/03/16-01/08/17; linezolid 01/08/17-01/20/17; caspofungin 01/12/17-01/21/17 and 02/04/17-02/17/17; tobramycin 02/04/2017- 02/15/17 for pseudomonas; cefepime 02/02/17-02/18/17 recommendations: - pending results: cultures of abscess of sacrococcyx, sensitivity of Pt's carbapenemase-producing klebsiella for colistin, tigecycline, ceftaz/miranda, ceftaroline/tazo (the sample was sent on 03/07/2017) - continue IV cefepime for pseudomonas in urine culture (03/04/2017). - continue IV colistin for carbapenemase-producing kleb (03/06/2017-). - for thrush, continue pGT fluconazole (03/09/2017-) and nystatin until thrush resolves - please refer to my note from the morning of 03/10/2017 for detail. Pt's waiting for transfer to SNF, and I recommend IV cefepime and colistin through . Depending on the final results of his wound culture, antibiotics and duration will be adjusted. corporate operations compliance manager Kyleigh informed me that Pt's provider at [facility] will follow up on the results of wound culture and adjust the antibiotics and their duration accordingly. - I recommend CBC and BMP every 1-2 days while Pt's on IV antibiotics - contact isolation for carbapenemase-producing klebsiella in urine management d/w Pt's son, and RN. management d/w Pt's RN Problems: Consultation Date/Type/Reason Admit Date/Time Dec 02, 2016 at 21:01 Initial Consult Date 12/03/16 Type of Consultation: ID Referring Provider: VIET PARKER MD 24 HR Interval Summary Subjective hx not possible: pt non-verbal Exam/Review of Systems Vital Signs Vitals Vital Signs Date Time Temp Pulse Resp B/P Pulse Ox O2 Delivery O2 Flow Rate FiO2 03/10/17 17:15 81 16 97 30 03/10/17 15:22 98.1 160/74 03/08/17 19:20 Mechanical Ventilator Intake and Output 03/09/17 03/09/17 03/10/17 15:00 23:00 07:00 Intake Total 300 ml 1350 ml 1162 ml Output Total 2300 ml 350 ml 800 ml Balance -2000 ml 1000 ml 362 ml Exam Constitutional: frail, non-verbal Psych: confusion Head: atraumatic, normocephalic Eyes: No icteric ENMT: nl external ears & nose Neck: other (trach) Respiratory: clear to auscultation, normal air movement Cardiovascular: nl pulses, regular rate and rhythm Gastrointestinal: non-tender, other (G tube), soft Genitourinary - Male: other (external catheter) Musculoskeletal: nl extremities to inspection Extremities: No edema Neurological: lethargic Skin: nl turgor, rash or lesions (L 1st plantar toe: small eschar only, L heel : skin ulcer without purulence, coccyx wound is packed) Results Result Diagram: 03/10/17 0656 03/10/17 0656 Results 24 hrs Laboratory Tests Test 03/09/17 20:32 03/10/17 01:00 03/10/17 06:07 03/10/17 06:17 Bedside Glucose 175 160 138 Lab Scanned Report BLOOD TRANSFUSION Test 03/10/17 06:56 03/10/17 09:45 03/10/17 13:24 03/10/17 17:47 White Blood Count 10.7 Red Blood Count 3.49 #L Hemoglobin 9.6 L Hematocrit 30.4 #L Mean Corpuscular Volume 87.1 Mean Corpuscular Hemoglobin 27.5 L Mean Corpuscular Hemoglobin Concent 31.6 L Red Cell Distribution Width 18.3 #H Platelet Count 210 # Mean Platelet Volume 10.0 Neutrophils % 79.3 H Lymphocytes % 9.0 L Monocytes % 8.4 Eosinophils % 0.8 Basophils % 0.2 Nucleated Red Blood Cells % 0.0 Neutrophils # 8.5 H Lymphocytes # 1.0 Monocytes # 0.9 Eosinophils # 0.1 Basophils # 0.0 Nucleated Red Blood Cells # 0.0 Sodium Level 145 H Potassium Level 3.9 Chloride Level 100 Carbon Dioxide Level 32 H Anion Gap 17 H Blood Urea Nitrogen 29 H Creatinine 0.72 Glucose Level 140 Calcium Level 8.1 L Bedside Glucose 132 151 125 Medications Medications Current Medications Ondansetron HCl (Zofran Inj) 4 mg Q6H PRN IV NAUSEA AND/OR VOMITING Last administered on 02/23/17 12:49; Admin Dose 4 MG; Start 12/02/16 at 22:30 Miscellaneous Information 1 ea NOTE XX ; Start 12/02/16 at 23:00 Glucose (Glutose) 15 gm Q15M PRN PO DECREASED GLUCOSE; Start 12/02/16 at 23:00 Glucose (Glutose) 22.5 gm Q15M PRN PO DECREASED GLUCOSE; Start 12/02/16 at 23: 00 Dextrose (D50w Syringe) 25 ml Q15M PRN IV DECREASED GLUCOSE Last administered on 03/08/17 05:34; Admin Dose 25 ML; Start 12/02/16 at 23:00 Dextrose (D50w Syringe) 50 ml Q15M PRN IV DECREASED GLUCOSE Last administered on 03/08/17 13:59; Admin Dose 50 ML; Start 12/02/16 at 23:00 Glucagon (Glucagen) 1 mg Q15M PRN IM DECREASED GLUCOSE; Start 12/02/16 at 23:00 Glucose (Glutose) 15 gm Q15M PRN BUCCAL DECREASED GLUCOSE; Start 12/02/16 at 23 :00 Acetaminophen (Tylenol Supp) 650 mg Q6H PRN [place] ELEVATED TEMPERATURE Last administered on 01/13/17 20:32; Admin Dose 650 MG; Start 12/09/16 at 17:00 Hydralazine HCl (Apresoline) 10 mg Q6H PRN IV SBP>150mm hg Last administered on 12/19/16 08:50; Admin Dose 10 MG; Start 12/11/16 at 10:30 Morphine Sulfate (morphine) 2 mg Q2H PRN IV PAIN LEVEL 4-7; Start 12/13/16 at 10 :00 Collagenase (Santyl) 1 applic DAILY TOP Last administered on 03/10/17 09:46; Admin Dose 1 APPLIC; Start 01/04/17 at 09:00 Metoprolol Tartrate (Lopressor) 5 mg Q4 PRN IV FOR H.R>110; Start 01/12/17 at 17:30 Acetaminophen (Tylenol Liquid) 650 mg Q6H PRN NGT PAIN AND OR ELEVATED TEMP Last administered on 03/06/17 21:32; Admin Dose 650 MG; Start 01/13/17 at 23:30 Acetaminophen/ Hydrocodone Bitart ([place] (5/325)) 1 tab Q6H PRN NGT PAIN LEVEL 4-7; Start 01/13/17 at 23:30 Levetiracetam (Keppra Liquid) 1,000 mg DAILY NGT Last administered on 09:45; Admin Dose 1,000 MG; Start 01/14/17 at 09:00 Meclizine HCl (Antivert) 25 mg TID PRN NGT dizziness; Start 01/13/17 at 20:00 Zolpidem Tartrate (Ambien) 5 mg HS PRN NGT INSOMNIA; Start 01/13/17 at 20:00 Metoprolol Tartrate (Lopressor) 12.5 mg BID NGT Last administered on 02/24/17 10:54; Admin Dose 12.5 MG; Start 01/24/17 at 21:00; Status Future Hold Nystatin (Nystatin Susp) 5 ml Q6 PO Last administered on 03/10/17 17:51; Admin Dose 5 ML; Start 01/31/17 at 12:00 Lansoprazole (Prevacid) 30 mg DAILY@06 GTB Last administered on 03/10/17 06:09 ; Admin Dose 30 MG; Start 02/09/17 at 06:00 Multivitamins (Multivitamin) 30 ml DAILY GTB Last administered on 03/10/17 09: 44; Admin Dose 30 ML; Start 02/14/17 at 16:30 Docusate Sodium (Colace Liquid Cup) 100 mg BID GTB Last administered on 09:44; Admin Dose 100 MG; Start 02/14/17 at 21:00 Amiodarone HCl (Cordarone) 200 mg DAILY GTB Last administered on 03/10/17 09: 47; Admin Dose 200 MG; Start 02/19/17 at 09:00 Ascorbic Acid (Vitamin C) 500 mg DAILY GTB Last administered on 03/10/17 09:46 ; Admin Dose 500 MG; Start 02/22/17 at 09:00 Insulin Glargine (Lantus) 56 unit DAILY@20 SC Last administered on 03/09/17 20 :43; Admin Dose 56 UNIT; Start 02/22/17 at 20:00 Insulin Aspart (Novolog Insulin Pen) NOVOLOG *MODERATE* ALGORI... Q4 SC Last administered on 03/10/17 13:31; Admin Dose 2 UNIT; Start 02/23/17 at 05:00 Metoclopramide HCl (Reglan) 5 mg Q6 IV Last administered on 03/10/17 17:51; Admin Dose 5 MG; Start 02/23/17 at 18:00 Apixaban 2.5 mg 2.5 mg BID GTB Last administered on 03/10/17 09:47; Admin Dose 2.5 MG; Start 03/03/17 at 21:00 Cefepime HCl/ Sodium Chloride (Maxipime/NS) 50 ml @ 100 mls/hr Q12 IVPB Last administered on 03/10/17 09:55; Admin Dose 100 MLS/HR; Start 03/04/17 at 12:00 Epoetin Kyler 6000 units 6,000 units MoWeFr@17 SC Last administered on 16:57; Admin Dose 6,000 UNITS; Start 03/07/17 at 17:00 Colistimethate Sodium 100 mg/ Sodium Chloride 100 ml @ 200 mls/hr Q24H IVPB Last administered on 03/09/17 21:16; Admin Dose 200 MLS/HR; Start 03/06/17 at 21:00 Potassium Chloride/Dextrose/ Sod Cl (D5-1/2ns + KCl 20 Meq) 1,000 ml @ 50 mls/ hr Q20H IV Last administered on 03/09/17 17:34; Admin Dose 50 MLS/HR; Start at 13:00 Sodium Hypochlorite (Dakin'S (Dilute 1/40%)) 1 applic DAILY IRR Last administered on 03/10/17 09:47; Admin Dose 1 APPLIC; Start 03/09/17 at 09:00 Fluconazole (Diflucan) 100 mg DAILY GTB Last administered on 03/10/17 09:47; Admin Dose 100 MG; Start 03/10/17 at 10:00 CHRISTY LOPEZ M.D. Mar 10, 2017 20:18
[2017-03-10] MEDS: INSULIN GLARGINE [LANtus] 3 ML PEN SC SCH (20:51)
[2017-03-10] MEDS: COLISTIMETHATE 100 MG in SOD CHLORIDE 0.9% 100 ML IVPB SCH (22:20)
[2017-03-11] VITALS (25 sets, daily range): BP systolic 84–135; BP diastolic 49–68; PULSE 78–92; RESP 16–25
[2017-03-11] MEDS: METOCLOPRAMIDE 10 MG INJ IV SCH ×3 (00:56→12:48)
[2017-03-11] MEDS: NYSTATIN SUSP 5 ML CUP PO SCH ×3 (00:56→12:48)
[2017-03-11] MEDS: INSULIN ASPART [NOVOLOG] 3 ML PEN SC SCH ×4 (01:00→17:17)
[2017-03-11] MEDS: D5W-0.45 NACL + KCL 20 MEQ 1,000 ML IV SCH (01:17)
[2017-03-11] MEDS: ALBUTEROL 18 GM INHALER INH SCH ×3 (02:26→13:12)
[2017-03-11] MEDS: LANSOPRAZOLE 30 MG CAP GTB SCH (05:56)
--- NOTE | 2017-03-11 07:32 | PN ---
Date/Time of Note Date/Time of Note DATE: 03/11/17 TIME: 07:32 Assessment/Plan VTE Prophylaxis VTE Prophylaxis Intervention: other Lines/Catheters IV Catheter Type (from [facility]): [place] [facility] Urinary Cath still in place: No (condom cath) Assessment/Plan Chief Complaint/Hosp Course Patient with diabetes, respiratory failure comes in with sepsis. Patient given antibiotics and slowly improved. Patient remain on ventilator for respiratory failure. - possible UTI due to carbapenemase-producing klebsiella and pseudomonas - probable colonization of the resp scotty by pseudomonas - probable colonization of the urinary tract by yeast - s/p recurrent sepsis due to pneumonia - treated with cefepime, tobramycin, and caspofungin - s/p recurrent pneumonia due to pseudomonas - s/p sepsis due to possible tracheobronchitis/pneumonia - funguria - thrush, persistent - recurrent cardiopulmonary arrest on 12/09/2016 and on 01/08/2017 - hypoxic respiratory failure, intubated for the 2nd time on 12/12/2016; extubated 12/18/2016; re-intubated for the 3rd time 01/08/2017, s/p tracheostomy 06/2017 - bleeding from trach site - resolved - acute on chronic anemia due to acute blood loss, requiring blood transfusion - 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 Blood cultures from HD catheter on 12/13/2016 are negative to date. 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 MRI on 12/06/2016 and bone scan on showed early OM of the distal phalanx of the left great toe and left fourth proximal phalanx. superficial swab grew inna only. At present, no e/o persistent infection - recurrent pleural effusion - s/p right pleural effusion s/p thoracentesis with .9L removed on 12/16/2016; ( Note: there is no pleural fluid cx since orders were placed after Right thoracentesis, and Left thoracentesis was not performed on 12/17/16 d/t insufficient fluid) - ARANZA on CKD that progressed to ESRD and started on HD from 12/09/2016 - oliguria - improved - A fib -> PAF - small nonreversible perfusion abnormality in the inferoapical and inferior carver; EF 36% per Lexiscan 12/24/2016 - severe , EF 40-45% per TTE 12/17/16 - DM - Hgb A1c 8.7% - HTN associated with DM - acute encephalopathy with anoxic brain injury - unstageable decubitus ulcer of coccyx, s/p excisional debridement of skin, subcutaneous, muscle, fascia, I&D of abscess on 03/08/2017 - dysphagia s/p G-tube placement 02/08/2017 NOTE: Pt completed 6 weeks (12/03/2016-01/15/2017) of antibiotics to treat early OM of the distal phalanx of the left great toe and left fourth proximal phalanx ; s/p pip/tazo 12/03/16-01/08/17; linezolid 01/08/17-01/20/17; caspofungin 01/12/17-01/21/17 and 02/04/17-02/17/17; tobramycin 02/04/2017- 02/15/17 for pseudomonas; cefepime 02/02/17-02/18/17 recommendations: - pending results: cultures of abscess of sacrococcyx, sensitivity of Pt's carbapenemase-producing klebsiella for colistin, tigecycline, ceftaz/miranda, ceftaroline/tazo (the sample was sent on 03/07/2017) - continue IV cefepime for pseudomonas in urine culture (03/04/2017). - continue IV colistin for carbapenemase-producing kleb (03/06/2017-). - for thrush, continue pGT fluconazole (03/09/2017-) and nystatin until thrush resolves - barn and property manager Kyleigh informed me that the director of Pt's insurance company [facility] and Dr. Heredia discussed Pt's disposition and that the decision was made to transfer him to [facility] today. She asked me to make my final recommendation on this Pt's antibiotic. I requested that Pt stay until the final result of wound culture of sacrococcyx becomes available but according to Kyleigh, it is not possible. I recommend that Pt remain colistin and cefepime for 7 more days. I recommend that Pt's primary physician and/or ID specialist at [facility] will follow up on the pending results (i.e. final result of wound culture of the sacrococcyx, sensitivity of Pt's carbapenemase-producing klebsiella for colistin, tigecycline, ceftaz/miranda, ceftaroline/tazo) and that his antibiotics and their duration be adjusted accordingly. I recommend CBC and BMP checked every 1-2 days while Pt's on antibacterial medications. - contact isolation for carbapenemase-producing klebsiella management d/w Kyleigh by phone management d/w Pt's RN Problems: Subjective 24 Hr Interval Summary Free Text/Dictation Patient resting, comfortably Exam/Review of Systems Vital Signs Vitals Vital Signs Date Time Temp Pulse Resp B/P Pulse Ox O2 Delivery O2 Flow Rate FiO2 03/11/17 05:17 82 18 98 30 03/11/17 04:11 98.0 134/61 03/08/17 19:20 Mechanical Ventilator Intake and Output 03/10/17 03/10/17 03/11/17 15:00 23:00 07:00 Intake Total 700 ml 999 ml Output Total 350 ml 450 ml 1 ml Balance -350 ml 250 ml 998 ml Exam Constitutional: well developed Head: atraumatic, normocephalic Neck: supple Respiratory: clear to auscultation Cardiovascular: regular rate and rhythm Gastrointestinal: non-tender, soft Extremities: normal pulses Results Result Diagram: 03/10/17 0656 03/10/17 0656 Results 24 hrs Laboratory Tests Test 03/10/17 09:45 03/10/17 13:24 03/10/17 17:47 03/10/17 20:37 Bedside Glucose 132 151 125 142 Test 03/11/17 01:19 03/11/17 05:53 Bedside Glucose 124 102 Medications Medications Current Medications Ondansetron HCl (Zofran Inj) 4 mg Q6H PRN IV NAUSEA AND/OR VOMITING Last administered on 02/23/17t 12:49; Admin Dose 4 MG; Start 12/02/16 at 22:30 Miscellaneous Information 1 ea NOTE XX ; Start 12/02/16 at 23:00 Glucose (Glutose) 15 gm Q15M PRN PO DECREASED GLUCOSE; Start 12/02/16 at 23:00 Glucose (Glutose) 22.5 gm Q15M PRN PO DECREASED GLUCOSE; Start 12/02/16 at 23: 00 Dextrose (D50w Syringe) 25 ml Q15M PRN IV DECREASED GLUCOSE Last administered on 03/08/17 05:34; Admin Dose 25 ML; Start 12/02/16 at 23:00 Dextrose (D50w Syringe) 50 ml Q15M PRN IV DECREASED GLUCOSE Last administered on 03/08/17 13:59; Admin Dose 50 ML; Start 12/02/16 at 23:00 Glucagon (Glucagen) 1 mg Q15M PRN IM DECREASED GLUCOSE; Start 12/02/16 at 23:00 Glucose (Glutose) 15 gm Q15M PRN BUCCAL DECREASED GLUCOSE; Start 12/02/16 at 23 :00 Acetaminophen (Tylenol Supp) 650 mg Q6H PRN [place] ELEVATED TEMPERATURE Last administered on 01/13/17 20:32; Admin Dose 650 MG; Start 12/09/16 at 17:00 Hydralazine HCl (Apresoline) 10 mg Q6H PRN IV SBP>150mm hg Last administered on 12/19/16 08:50; Admin Dose 10 MG; Start 12/11/16 at 10:30 Morphine Sulfate (morphine) 2 mg Q2H PRN IV PAIN LEVEL 4-7; Start 12/13/16 at 10 :00 Collagenase (Santyl) 1 applic DAILY TOP Last administered on 03/10/17 09:46; Admin Dose 1 APPLIC; Start 01/04/17 at 09:00 Metoprolol Tartrate (Lopressor) 5 mg Q4 PRN IV FOR H.R>110; Start 01/12/17 at 17:30 Acetaminophen (Tylenol Liquid) 650 mg Q6H PRN NGT PAIN AND OR ELEVATED TEMP Last administered on 03/06/17 21:32; Admin Dose 650 MG; Start 01/13/17 at 23:30 Acetaminophen/ Hydrocodone Bitart ([place] (5/325)) 1 tab Q6H PRN NGT PAIN LEVEL 4-7; Start 01/13/17 at 23:30 Levetiracetam (Keppra Liquid) 1,000 mg DAILY NGT Last administered on 09:45; Admin Dose 1,000 MG; Start 01/14/17 at 09:00 Meclizine HCl (Antivert) 25 mg TID PRN NGT dizziness; Start 01/13/17 at 20:00 Zolpidem Tartrate (Ambien) 5 mg HS PRN NGT INSOMNIA; Start 01/13/17 at 20:00 Metoprolol Tartrate (Lopressor) 12.5 mg BID NGT Last administered on 02/24/17 10:54; Admin Dose 12.5 MG; Start 01/24/17 at 21:00; Status Future Hold Nystatin (Nystatin Susp) 5 ml Q6 PO Last administered on 03/11/17 05:56; Admin Dose 5 ML; Start 01/31/17 at 12:00 Lansoprazole (Prevacid) 30 mg DAILY@06 GTB Last administered on 03/11/17 05:56 ; Admin Dose 30 MG; Start 02/09/17 at 06:00 Multivitamins (Multivitamin) 30 ml DAILY GTB Last administered on 03/10/17 09: 44; Admin Dose 30 ML; Start 02/14/17 at 16:30 Docusate Sodium (Colace Liquid Cup) 100 mg BID GTB Last administered on 20:35; Admin Dose 100 MG; Start 02/14/17 at 21:00 Amiodarone HCl (Cordarone) 200 mg DAILY GTB Last administered on 03/10/17 09: 47; Admin Dose 200 MG; Start 02/19/17 at 09:00 Ascorbic Acid (Vitamin C) 500 mg DAILY GTB Last administered on 03/10/17 09:46 ; Admin Dose 500 MG; Start 02/22/17 at 09:00 Insulin Glargine (Lantus) 56 unit DAILY@20 SC Last administered on 03/10/17 20 :51; Admin Dose 56 UNIT; Start 02/22/17 at 20:00 Insulin Aspart (Novolog Insulin Pen) NOVOLOG *MODERATE* ALGORI... Q4 SC Last administered on 03/10/17 20:51; Admin Dose 2 UNIT; Start 02/23/17 at 05:00 Metoclopramide HCl (Reglan) 5 mg Q6 IV Last administered on 03/11/17 05:56; Admin Dose 5 MG; Start 02/23/17 at 18:00 Apixaban 2.5 mg 2.5 mg BID GTB Last administered on 03/10/17 20:35; Admin Dose 2.5 MG; Start 03/03/17 at 21:00 Cefepime HCl/ Sodium Chloride (Maxipime/NS) 50 ml @ 100 mls/hr Q12 IVPB Last administered on 03/10/17 21:25; Admin Dose 100 MLS/HR; Start 03/04/17 at 12:00 Epoetin Kyler 6000 units 6,000 units MoWeFr@17 SC Last administered on 16:57; Admin Dose 6,000 UNITS; Start 03/07/17 at 17:00 Colistimethate Sodium 100 mg/ Sodium Chloride 100 ml @ 200 mls/hr Q24H IVPB Last administered on 03/10/17 22:20; Admin Dose 200 MLS/HR; Start 03/06/17 at 21:00 Potassium Chloride/Dextrose/ Sod Cl (D5-1/2ns + KCl 20 Meq) 1,000 ml @ 50 mls/ hr Q20H IV Last administered on 03/11/17 01:17; Admin Dose 50 MLS/HR; Start at 13:00 Sodium Hypochlorite (Dakin'S (Dilute 1/40%)) 1 applic DAILY IRR Last administered on 03/10/17 09:47; Admin Dose 1 APPLIC; Start 03/09/17 at 09:00 Fluconazole (Diflucan) 100 mg DAILY GTB Last administered on 03/10/17 09:47; Admin Dose 100 MG; Start 03/10/17 at 10:00 ELTON MARMOLEJO Mar 11, 2017 07:32
[2017-03-11] MEDS: CEFEPIME HCL 0.5 GM in SOD CHLORIDE 0.9% 50 ML IVPB SCH (09:26)
[2017-03-11] MEDS: APIXABAN 5 MG TABLET GTB SCH (09:27)
[2017-03-11] MEDS: MULTIVITAMINS 30 ML CUP GTB SCH (09:27)
[2017-03-11] MEDS: DOCUSATE SODIUM 10 MG/ML (10ML CUP) GTB SCH (09:27)
[2017-03-11] MEDS: SODIUM HYPOCHLORITE 1/40% 1L IRRIG IRR SCH (09:27)
[2017-03-11] MEDS: AMIODARONE 200 MG TAB GTB SCH (09:27)
[2017-03-11] MEDS: ASCORBIC ACID 500 MG TAB GTB SCH (09:27)
[2017-03-11] MEDS: LEVETIRACETAM (100 MG/ML) 5ML CUP NGT SCH (09:27)
[2017-03-11] MEDS: COLLAGENASE 30 GM TUBE TOP SCH (09:29)
--- NOTE | 2017-03-11 10:39 | CONS ---
Date/Time of Note Date/Time of Note DATE: 03/11/17 TIME: 10:38 Assessment/Plan Assessment/Plan Chief Complaint/Hosp Course - possible UTI due to carbapenemase-producing klebsiella and pseudomonas - probable colonization of the resp scotty by pseudomonas - probable colonization of the urinary tract by yeast - s/p recurrent sepsis due to pneumonia - treated with cefepime, tobramycin, and caspofungin - s/p recurrent pneumonia due to pseudomonas - s/p sepsis due to possible tracheobronchitis/pneumonia - funguria - thrush, persistent - recurrent cardiopulmonary arrest on 12/09/2016 and on 01/08/2017 - hypoxic respiratory failure, intubated for the 2nd time on 12/12/2016; extubated 12/18/2016; re-intubated for the 3rd time 01/08/2017, s/p tracheostomy 06/2017 - bleeding from trach site - resolved - acute on chronic anemia due to acute blood loss, requiring blood transfusion - 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 Blood cultures from HD catheter on 12/13/2016 are negative to date. 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 MRI on 12/06/2016 and bone scan on showed early OM of the distal phalanx of the left great toe and left fourth proximal phalanx. superficial swab grew inna only. At present, no e/o persistent infection - recurrent pleural effusion - s/p right pleural effusion s/p thoracentesis with .9L removed on 12/16/2016; ( Note: there is no pleural fluid cx since orders were placed after Right thoracentesis, and Left thoracentesis was not performed on 12/17/16 d/t insufficient fluid) - ARANZA on CKD that progressed to ESRD and started on HD from 12/09/2016 - oliguria - improved - A fib -> PAF - small nonreversible perfusion abnormality in the inferoapical and inferior carver; EF 36% per Lexiscan 12/24/2016 - severe , EF 40-45% per TTE 12/17/16 - DM - Hgb A1c 8.7% - HTN associated with DM - acute encephalopathy with anoxic brain injury - unstageable decubitus ulcer of coccyx, s/p excisional debridement of skin, subcutaneous, muscle, fascia, I&D of abscess on 03/08/2017 - dysphagia s/p G-tube placement 02/08/2017 NOTE: Pt completed 6 weeks (12/03/2016-01/15/2017) of antibiotics to treat early OM of the distal phalanx of the left great toe and left fourth proximal phalanx ; s/p pip/tazo 12/03/16-01/08/17; linezolid 01/08/17-01/20/17; caspofungin 01/12/17-01/21/17 and 02/04/17-02/17/17; tobramycin 02/04/2017- 02/15/17 for pseudomonas; cefepime 02/02/17-02/18/17 recommendations: - pending results: cultures of abscess of sacrococcyx, sensitivity of Pt's carbapenemase-producing klebsiella for colistin, tigecycline, ceftaz/miranda, ceftaroline/tazo (the sample was sent on 03/07/2017) - continue IV cefepime for pseudomonas in urine culture (03/04/2017). - continue IV colistin for carbapenemase-producing kleb (03/06/2017-). - for thrush, continue pGT fluconazole (03/09/2017-) and nystatin until thrush resolves - Pt's waiting for transfer to SNF, and I recommend IV cefepime and colistin through 03/14/2017. Depending on the final results of his wound culture, antibiotics and duration will be adjusted. banquet manager Kyleigh informed me that Pt's provider at [facility] will follow up on the results of wound culture and adjust the antibiotics and their duration accordingly. - I recommend CBC and BMP every 1-2 days while Pt's on IV antibiotics - contact isolation for carbapenemase-producing klebsiella in urine. This was discussed with erp project manager Paola management d/w erp project manager Paola management d/w Pt's RN Problems: Consultation Date/Type/Reason Admit Date/Time Dec 02, 2016 at 21:01 Initial Consult Date 12/03/16 Type of Consultation: ID Referring Provider: VIET PARKER MD 24 HR Interval Summary Subjective hx not possible: pt non-verbal Exam/Review of Systems Vital Signs Vitals Vital Signs Date Time Temp Pulse Resp B/P Pulse Ox O2 Delivery O2 Flow Rate FiO2 03/11/17 09:30 89 25 98 30 03/11/17 07:32 98.2 130/68 03/08/17 19:20 Mechanical Ventilator Intake and Output 03/10/17 03/10/17 03/11/17 15:00 23:00 07:00 Intake Total 700 ml 999 ml Output Total 350 ml 450 ml 1 ml Balance -350 ml 250 ml 998 ml Exam Constitutional: frail, non-verbal Psych: confusion Head: atraumatic, normocephalic Eyes: nl conjunctiva, nl lids ENMT: nl external ears & nose, nl nasal mucosa & septum Neck: other (trach) Respiratory: diminished breath sounds Cardiovascular: nl pulses, regular rate and rhythm Gastrointestinal: non-tender, soft Genitourinary - Male: other (external cath) Musculoskeletal: nl extremities to inspection Extremities: No edema Neurological: confused, lethargic Skin: rash or lesions (coccygeal wound is packed) Results Result Diagram: 03/10/17 0656 03/10/17 0656 Results 24 hrs Laboratory Tests Test 03/10/17 13:24 03/10/17 17:47 03/10/17 20:37 03/11/17 01:19 Bedside Glucose 151 125 142 124 Test 03/11/17 05:53 Bedside Glucose 102 Medications Medications Current Medications Ondansetron HCl (Zofran Inj) 4 mg Q6H PRN IV NAUSEA AND/OR VOMITING Last administered on 02/23/17 12:49; Admin Dose 4 MG; Start 12/02/16 at 22:30 Miscellaneous Information 1 ea NOTE XX ; Start 12/02/16 at 23:00 Glucose (Glutose) 15 gm Q15M PRN PO DECREASED GLUCOSE; Start 12/02/16 at 23:00 Glucose (Glutose) 22.5 gm Q15M PRN PO DECREASED GLUCOSE; Start 12/02/16 at 23: 00 Dextrose (D50w Syringe) 25 ml Q15M PRN IV DECREASED GLUCOSE Last administered on 03/08/17 05:34; Admin Dose 25 ML; Start 12/02/16 at 23:00 Dextrose (D50w Syringe) 50 ml Q15M PRN IV DECREASED GLUCOSE Last administered on 03/08/17 13:59; Admin Dose 50 ML; Start 12/02/16 at 23:00 Glucagon (Glucagen) 1 mg Q15M PRN IM DECREASED GLUCOSE; Start 12/02/16 at 23:00 Glucose (Glutose) 15 gm Q15M PRN BUCCAL DECREASED GLUCOSE; Start 12/02/16 at 23 :00 Acetaminophen (Tylenol Supp) 650 mg Q6H PRN DC ELEVATED TEMPERATURE Last administered on 01/13/17 20:32; Admin Dose 650 MG; Start 12/09/16 at 17:00 Hydralazine HCl (Apresoline) 10 mg Q6H PRN IV SBP>150mm hg Last administered on 12/19/16 08:50; Admin Dose 10 MG; Start 12/11/16 at 10:30 Morphine Sulfate (morphine) 2 mg Q2H PRN IV PAIN LEVEL 4-7; Start 12/13/16 at 10 :00 Collagenase (Santyl) 1 applic DAILY TOP Last administered on 03/11/17 09:29; Admin Dose 1 APPLIC; Start 01/04/17 at 09:00 Metoprolol Tartrate (Lopressor) 5 mg Q4 PRN IV FOR H.R>110; Start 01/12/17 at 17:30 Acetaminophen (Tylenol Liquid) 650 mg Q6H PRN NGT PAIN AND OR ELEVATED TEMP Last administered on 03/06/17 21:32; Admin Dose 650 MG; Start 01/13/17 at 23:30 Acetaminophen/ Hydrocodone Bitart ([place] (5/325)) 1 tab Q6H PRN NGT PAIN LEVEL 4-7; Start 01/13/17 at 23:30 Levetiracetam (Keppra Liquid) 1,000 mg DAILY NGT Last administered on 09:27; Admin Dose 1,000 MG; Start 01/14/17 at 09:00 Meclizine HCl (Antivert) 25 mg TID PRN NGT dizziness; Start 01/13/17 at 20:00 Zolpidem Tartrate (Ambien) 5 mg HS PRN NGT INSOMNIA; Start 01/13/17 at 20:00 Metoprolol Tartrate (Lopressor) 12.5 mg BID NGT Last administered on 02/24/17 10:54; Admin Dose 12.5 MG; Start 01/24/17 at 21:00; Status Future Hold Nystatin (Nystatin Susp) 5 ml Q6 PO Last administered on 03/11/17 05:56; Admin Dose 5 ML; Start 01/31/17 at 12:00 Lansoprazole (Prevacid) 30 mg DAILY@06 GTB Last administered on 03/11/17 05:56 ; Admin Dose 30 MG; Start 02/09/17 at 06:00 Multivitamins (Multivitamin) 30 ml DAILY GTB Last administered on 03/11/17 09: 27; Admin Dose 30 ML; Start 02/14/17 at 16:30 Docusate Sodium (Colace Liquid Cup) 100 mg BID GTB Last administered on 09:27; Admin Dose 100 MG; Start 02/14/17 at 21:00 Amiodarone HCl (Cordarone) 200 mg DAILY GTB Last administered on 03/11/17 09: 27; Admin Dose 200 MG; Start 02/19/17 at 09:00 Ascorbic Acid (Vitamin C) 500 mg DAILY GTB Last administered on 03/11/17 09:27 ; Admin Dose 500 MG; Start 02/22/17 at 09:00 Insulin Glargine (Lantus) 56 unit DAILY@20 SC Last administered on 03/10/17 20 :51; Admin Dose 56 UNIT; Start 02/22/17 at 20:00 Metoclopramide HCl (Reglan) 5 mg Q6 IV Last administered on 03/11/17 05:56; Admin Dose 5 MG; Start 02/23/17 at 18:00 Apixaban 2.5 mg 2.5 mg BID GTB Last administered on 03/11/17 09:27; Admin Dose 2.5 MG; Start 03/03/17 at 21:00 Cefepime HCl/ Sodium Chloride (Maxipime/NS) 50 ml @ 100 mls/hr Q12 IVPB Last administered on 03/11/17 09:26; Admin Dose 100 MLS/HR; Start 03/04/17 at 12:00 Epoetin Kyler 6000 units 6,000 units MoWeFr@17 SC Last administered on 16:57; Admin Dose 6,000 UNITS; Start 03/07/17 at 17:00 Colistimethate Sodium 100 mg/ Sodium Chloride 100 ml @ 200 mls/hr Q24H IVPB Last administered on 03/10/17 22:20; Admin Dose 200 MLS/HR; Start 03/06/17 at 21:00 Potassium Chloride/Dextrose/ Sod Cl (D5-1/2ns + KCl 20 Meq) 1,000 ml @ 50 mls/ hr Q20H IV Last administered on 03/11/17 01:17; Admin Dose 50 MLS/HR; Start at 13:00 Sodium Hypochlorite (Dakin'S (Dilute 1/40%)) 1 applic DAILY IRR Last administered on 03/11/17 09:27; Admin Dose 1 APPLIC; Start 03/09/17 at 09:00 Fluconazole (Diflucan) 100 mg DAILY GTB Last administered on 03/10/17 09:47; Admin Dose 100 MG; Start 03/10/17 at 10:00 Insulin Aspart (Novolog Insulin Pen) NOVOLOG *MODERATE* ALGORI... Q6 SC ; Start 03/11/17 at 12:00 CHRISTY LOPEZ M.D. Mar 11, 2017 10:39
--- NOTE | 2017-03-11 10:49 | CONS ---
Date/Time of Note Date/Time of Note DATE: 03/11/17 TIME: 10:48 Assessment/Plan Assessment/Plan Chief Complaint/Hosp Course - possible UTI due to carbapenemase-producing klebsiella and pseudomonas - probable colonization of the resp scotty by pseudomonas - probable colonization of the urinary tract by yeast - s/p recurrent sepsis due to pneumonia - treated with cefepime, tobramycin, and caspofungin - s/p recurrent pneumonia due to pseudomonas - s/p sepsis due to possible tracheobronchitis/pneumonia - funguria - thrush, persistent - recurrent cardiopulmonary arrest on 12/09/2016 and on 01/08/2017 - hypoxic respiratory failure, intubated for the 2nd time on 12/12/2016; extubated 12/18/2016; re-intubated for the 3rd time 01/08/2017, s/p tracheostomy 06/2017 - bleeding from trach site - resolved - acute on chronic anemia due to acute blood loss, requiring blood transfusion - 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 Blood cultures from HD catheter on 12/13/2016 are negative to date. 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 MRI on 12/06/2016 and bone scan on showed early OM of the distal phalanx of the left great toe and left fourth proximal phalanx. superficial swab grew inna only. At present, no e/o persistent infection - recurrent pleural effusion - s/p right pleural effusion s/p thoracentesis with .9L removed on 12/16/2016; ( Note: there is no pleural fluid cx since orders were placed after Right thoracentesis, and Left thoracentesis was not performed on 12/17/16 d/t insufficient fluid) - ARANZA on CKD that progressed to ESRD and started on HD from 12/09/2016 - oliguria - improved - A fib -> PAF - small nonreversible perfusion abnormality in the inferoapical and inferior carver; EF 36% per Lexiscan 12/24/2016 - severe , EF 40-45% per TTE 12/17/16 - DM - Hgb A1c 8.7% - HTN associated with DM - acute encephalopathy with anoxic brain injury - unstageable decubitus ulcer of coccyx, s/p excisional debridement of skin, subcutaneous, muscle, fascia, I&D of abscess on 03/08/2017 - dysphagia s/p G-tube placement 02/08/2017 NOTE: Pt completed 6 weeks (12/03/2016-01/15/2017) of antibiotics to treat early OM of the distal phalanx of the left great toe and left fourth proximal phalanx ; s/p pip/tazo 12/03/16-01/08/17; linezolid 01/08/17-01/20/17; caspofungin 01/12/17-01/21/17 and 02/04/17-02/17/17; tobramycin 02/04/2017- 02/15/17 for pseudomonas; cefepime 02/02/17-02/18/17 REVISED recommendations: - pending results: cultures of abscess of sacrococcyx, sensitivity of Pt's carbapenemase-producing klebsiella for colistin, tigecycline is pending (the sample was sent on 03/07/2017). The strain is sensitive to ceftaz/miranda, but resistant to ceftaroline/tazo - continue IV cefepime for pseudomonas in urine culture (03/04/2017). - continue IV colistin for carbapenemase-producing kleb (03/06/2017-). - for thrush, continue pGT fluconazole (03/09/2017-) and nystatin until thrush resolves - Pt's waiting for transfer to [facility], and I recommend IV cefepime and colistin through 03/14/2017. Depending on the final results of his wound culture, antibiotics and duration will be adjusted. cnc manager Kyleigh informed me that Pt's provider at [facility] will follow up on the results of wound culture and adjust the antibiotics and their duration accordingly. - I recommend CBC and BMP every 1-2 days while Pt's on IV antibiotics - contact isolation for carbapenemase-producing klebsiella in urine. This was discussed with national sales manager Poala management d/w national sales manager Paola management d/w Pt's RN Problems: Consultation Date/Type/Reason Admit Date/Time Dec 02, 2016 at 21:01 Initial Consult Date 12/03/16 Type of Consultation: ID Referring Provider: VIET PARKER MD Exam/Review of Systems Vital Signs Vitals Vital Signs Date Time Temp Pulse Resp B/P Pulse Ox O2 Delivery O2 Flow Rate FiO2 03/11/17 09:30 89 25 98 30 03/11/17 07:32 98.2 130/68 03/08/17 19:20 Mechanical Ventilator Intake and Output 03/10/17 03/10/17 03/11/17 15:00 23:00 07:00 Intake Total 700 ml 999 ml Output Total 350 ml 450 ml 1 ml Balance -350 ml 250 ml 998 ml Results Result Diagram: 03/10/17 0656 03/10/17 0656 Results 24 hrs Laboratory Tests Test 03/10/17 13:24 03/10/17 17:47 03/10/17 20:37 03/11/17 01:19 Bedside Glucose 151 125 142 124 Test 03/11/17 05:53 Bedside Glucose 102 Medications Medications Current Medications Ondansetron HCl (Zofran Inj) 4 mg Q6H PRN IV NAUSEA AND/OR VOMITING Last administered on 02/23/17 12:49; Admin Dose 4 MG; Start 12/02/16 at 22:30 Miscellaneous Information 1 ea NOTE XX ; Start 12/02/16 at 23:00 Glucose (Glutose) 15 gm Q15M PRN PO DECREASED GLUCOSE; Start 12/02/16 at 23:00 Glucose (Glutose) 22.5 gm Q15M PRN PO DECREASED GLUCOSE; Start 12/02/16 at 23: 00 Dextrose (D50w Syringe) 25 ml Q15M PRN IV DECREASED GLUCOSE Last administered on 03/08/17 05:34; Admin Dose 25 ML; Start 12/02/16 at 23:00 Dextrose (D50w Syringe) 50 ml Q15M PRN IV DECREASED GLUCOSE Last administered on 03/08/17 13:59; Admin Dose 50 ML; Start 12/02/16 at 23:00 Glucagon (Glucagen) 1 mg Q15M PRN IM DECREASED GLUCOSE; Start 12/02/16 at 23:00 Glucose (Glutose) 15 gm Q15M PRN BUCCAL DECREASED GLUCOSE; Start 12/02/16 at 23 :00 Acetaminophen (Tylenol Supp) 650 mg Q6H PRN DE ELEVATED TEMPERATURE Last administered on 6/1/17at 20:32; Admin Dose 650 MG; Start 12/09/16 at 17:00 Hydralazine HCl (Apresoline) 10 mg Q6H PRN IV SBP>150mm hg Last administered on 12/19/16 08:50; Admin Dose 10 MG; Start 12/11/16 at 10:30 Morphine Sulfate (morphine) 2 mg Q2H PRN IV PAIN LEVEL 4-7; Start 12/13/16 at 10 :00 Collagenase (Santyl) 1 applic DAILY TOP Last administered on 03/11/17 09:29; Admin Dose 1 APPLIC; Start 01/04/17 at 09:00 Metoprolol Tartrate (Lopressor) 5 mg Q4 PRN IV FOR H.R>110; Start 01/12/17 at 17:30 Acetaminophen (Tylenol Liquid) 650 mg Q6H PRN NGT PAIN AND OR ELEVATED TEMP Last administered on 03/06/17 21:32; Admin Dose 650 MG; Start 01/13/17 at 23:30 Acetaminophen/ Hydrocodone Bitart ([place] (5/325)) 1 tab Q6H PRN NGT PAIN LEVEL 4-7; Start 01/13/17 at 23:30 Levetiracetam (Keppra Liquid) 1,000 mg DAILY NGT Last administered on 09:27; Admin Dose 1,000 MG; Start 01/14/17 at 09:00 Meclizine HCl (Antivert) 25 mg TID PRN NGT dizziness; Start 01/13/17 at 20:00 Zolpidem Tartrate (Ambien) 5 mg HS PRN NGT INSOMNIA; Start 01/13/17 at 20:00 Metoprolol Tartrate (Lopressor) 12.5 mg BID NGT Last administered on 02/24/17 10:54; Admin Dose 12.5 MG; Start 01/24/17 at 21:00; Status Future Hold Nystatin (Nystatin Susp) 5 ml Q6 PO Last administered on 03/11/17 05:56; Admin Dose 5 ML; Start 01/31/17 at 12:00 Lansoprazole (Prevacid) 30 mg DAILY@06 GTB Last administered on 03/11/17 05:56 ; Admin Dose 30 MG; Start 02/09/17 at 06:00 Multivitamins (Multivitamin) 30 ml DAILY GTB Last administered on 03/11/17 09: 27; Admin Dose 30 ML; Start 02/14/17 at 16:30 Docusate Sodium (Colace Liquid Cup) 100 mg BID GTB Last administered on 09:27; Admin Dose 100 MG; Start 02/14/17 at 21:00 Amiodarone HCl (Cordarone) 200 mg DAILY GTB Last administered on 03/11/17 09: 27; Admin Dose 200 MG; Start 02/19/17 at 09:00 Ascorbic Acid (Vitamin C) 500 mg DAILY GTB Last administered on 03/11/17 09:27 ; Admin Dose 500 MG; Start 02/22/17 at 09:00 Insulin Glargine (Lantus) 56 unit DAILY@20 SC Last administered on 03/10/17 20 :51; Admin Dose 56 UNIT; Start 02/22/17 at 20:00 Metoclopramide HCl (Reglan) 5 mg Q6 IV Last administered on 03/11/17 05:56; Admin Dose 5 MG; Start 02/23/17 at 18:00 Apixaban 2.5 mg 2.5 mg BID GTB Last administered on 03/11/17 09:27; Admin Dose 2.5 MG; Start 03/03/17 at 21:00 Cefepime HCl/ Sodium Chloride (Maxipime/NS) 50 ml @ 100 mls/hr Q12 IVPB Last administered on 03/11/17 09:26; Admin Dose 100 MLS/HR; Start 03/04/17 at 12:00 Epoetin Kyler 6000 units 6,000 units MoWeFr@17 SC Last administered on 16:57; Admin Dose 6,000 UNITS; Start 03/07/17 at 17:00 Colistimethate Sodium 100 mg/ Sodium Chloride 100 ml @ 200 mls/hr Q24H IVPB Last administered on 03/10/17 22:20; Admin Dose 200 MLS/HR; Start 03/06/17 at 21:00 Potassium Chloride/Dextrose/ Sod Cl (D5-1/2ns + KCl 20 Meq) 1,000 ml @ 50 mls/ hr Q20H IV Last administered on 03/11/17 01:17; Admin Dose 50 MLS/HR; Start at 13:00 Sodium Hypochlorite (Dakin'S (Dilute 1/40%)) 1 applic DAILY IRR Last administered on 03/11/17 09:27; Admin Dose 1 APPLIC; Start 03/09/17 at 09:00 Fluconazole (Diflucan) 100 mg DAILY GTB Last administered on 03/10/17 09:47; Admin Dose 100 MG; Start 03/10/17 at 10:00 Insulin Aspart (Novolog Insulin Pen) NOVOLOG *MODERATE* ALGORI... Q6 SC ; Start 03/11/17 at 12:00 CHRISTY LOPEZ M.D. Mar 11, 2017 10:49
--- NOTE | 2017-03-11 12:14 | GILP ---
DATE OF PROCEDURE: 02/08/2017 PROCEDURE PERFORMED: Percutaneous esophagogastroduodenoscopy and percutaneous endoscopic gastrostomy tube placement. PREOP DIAGNOSIS: The patient presenting with history of history of difficulty in swallowing. Having malnourishment and weight loss. Procedure at this time is performed to create access for long-term nutritional support. POSTOP DIAGNOSIS: The patient presenting with history of history of difficulty in swallowing. Having malnourishment and weight loss. Procedure at this time is performed to create access for long-term nutritional support. DESCRIPTION OF PROCEDURE: After informed consent was obtained. The patient was asked to lie in a supine position. Intravenous anesthesia was given by anesthesiologist. When the patient became somnolent. Olympus video upper endoscope was introduced into the oropharynx and then into the esophagus. Esophagus appeared normal. The endoscope at this time was advanced into the stomach. Stomach showed evidence of normal findings. Duodenum appeared normal. At this time anterior abdominal wall was prepared with Betadine and alcohol. 2 cc of 2 percent xylocaine was infiltrated at the endoscopic eliminating site and a 5 mm incision was made by using the scalpel. Through this incision, trocar was inserted into the stomach and after removing the stylet the guidewire was inserted into the stomach and a guidewire was grabbed with a polypectomy snare, and then it was brought out through the mouth along with the endoscope. In addition to the guidewire, a number 20 micro invasive G-tube was tied in a loop fashion and then it was brought out through the abdominal wall incision. The retention bumper was placed over the G-tube close to the skin. The tapered end of the gastrostomy tube was cut and the adapter was placed. The procedure was terminated. PLAN: Recommend start the G-tube in a.m. Dictated By: Abiodun Smith MD /bharath/megan /Document#: [id number]
--- NOTE | 2017-03-11 12:44 | CONS ---
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 Blood cultures from HD catheter on 12/13/2016 are negative to date. 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 MRI on 12/06/2016 and bone scan on showed early OM of the distal phalanx of the left great toe and left fourth proximal phalanx. superficial swab grew inna only - s/p right pleural effusion s/p thoracentesis with .9L removed on 12/16/2016 - severe , EF 40-45% per TTE 12/17/16 - DM - Hgb A1c 8.7% - HTN associated with DM - sp Tracheostomy site bleeding Plan: will conitnue HD on MW - HD ordered for today continue epogen for anemia awaiting debridement of wound - possible plan on Tuesday s/p Tracheostomy, pt will need HD palcement at a unit where they can do a HD for pt with tracheostomy and PEG tube placemen t- rn field case manager worked on it pt has severe , very labile BP sometimes with HD will continue to follow up for HD need Consultation Date/Type/Reason Admit Date/Time Dec 02, 2016 at 21:01 Initial Consult Date Type of Consultation: NEPHROLOGY Referring Provider: VIET PARKER MD 24 HR Interval Summary Free Text/Dictation plan for HD today, awaiting Debridement,possible plan on Tuesday, no acute events overnight Exam/Review of Systems Vital Signs Vitals Vital Signs Date Time Temp Pulse Resp B/P Pulse Ox O2 Delivery O2 Flow Rate FiO2 03/11/17 11:10 88 25 99 30 03/11/17 11:10 98.2 102/51 03/08/17 19:20 Mechanical Ventilator Intake and Output 03/10/17 03/10/17 03/11/17 15:00 23:00 07:00 Intake Total 700 ml 999 ml Output Total 350 ml 450 ml 1 ml Balance -350 ml 250 ml 998 ml Exam Constitutional: non-verbal Psych: confusion Head: atraumatic, normocephalic+ tracheostomy Respiratory: clear to auscultation, normal air movement Cardiovascular: nl pulses, regular rate and rhythm Gastrointestinal: non-tender, soft Extremities: No edema Neurological: lethargic Skin: rash or lesions (decubitus ulcer is clean, non-purulent, well vascularized tissue) Results Result Diagram: 03/10/17 0656 03/10/17 0656 Results 24 hrs Laboratory Tests Test 03/10/17 13:24 03/10/17 17:47 03/10/17 20:37 03/11/17 01:19 Bedside Glucose 151 125 142 124 Test 03/11/17 05:53 Bedside Glucose 102 Medications Medications Current Medications Ondansetron HCl (Zofran Inj) 4 mg Q6H PRN IV NAUSEA AND/OR VOMITING Last administered on 02/23/17 12:49; Admin Dose 4 MG; Start 12/02/16 at 22:30 Miscellaneous Information 1 ea NOTE XX ; Start 12/02/16 at 23:00 Glucose (Glutose) 15 gm Q15M PRN PO DECREASED GLUCOSE; Start 12/02/16 at 23:00 Glucose (Glutose) 22.5 gm Q15M PRN PO DECREASED GLUCOSE; Start 12/02/16 at 23: 00 Dextrose (D50w Syringe) 25 ml Q15M PRN IV DECREASED GLUCOSE Last administered on 03/08/17 05:34; Admin Dose 25 ML; Start 12/02/16 at 23:00 Dextrose (D50w Syringe) 50 ml Q15M PRN IV DECREASED GLUCOSE Last administered on 03/08/17 13:59; Admin Dose 50 ML; Start 12/02/16 at 23:00 Glucagon (Glucagen) 1 mg Q15M PRN IM DECREASED GLUCOSE; Start 12/02/16 at 23:00 Glucose (Glutose) 15 gm Q15M PRN BUCCAL DECREASED GLUCOSE; Start 12/02/16 at 23 :00 Acetaminophen (Tylenol Supp) 650 mg Q6H PRN IN ELEVATED TEMPERATURE Last administered on 01/13/17 20:32; Admin Dose 650 MG; Start 12/09/16 at 17:00 Hydralazine HCl (Apresoline) 10 mg Q6H PRN IV SBP>150mm hg Last administered on 12/19/16 08:50; Admin Dose 10 MG; Start 12/11/16 at 10:30 Morphine Sulfate (morphine) 2 mg Q2H PRN IV PAIN LEVEL 4-7; Start 12/13/16 at 10 :00 Collagenase (Santyl) 1 applic DAILY TOP Last administered on 03/11/17 09:29; Admin Dose 1 APPLIC; Start 01/04/17 at 09:00 Metoprolol Tartrate (Lopressor) 5 mg Q4 PRN IV FOR H.R>110; Start 01/12/17 at 17:30 Acetaminophen (Tylenol Liquid) 650 mg Q6H PRN NGT PAIN AND OR ELEVATED TEMP Last administered on 03/06/17 21:32; Admin Dose 650 MG; Start 01/13/17 at 23:30 Acetaminophen/ Hydrocodone Bitart ([place] (5/325)) 1 tab Q6H PRN NGT PAIN LEVEL 4-7; Start 01/13/17 at 23:30 Levetiracetam (Keppra Liquid) 1,000 mg DAILY NGT Last administered on 09:27; Admin Dose 1,000 MG; Start 01/14/17 at 09:00 Meclizine HCl (Antivert) 25 mg TID PRN NGT dizziness; Start 01/13/17 at 20:00 Zolpidem Tartrate (Ambien) 5 mg HS PRN NGT INSOMNIA; Start 01/13/17 at 20:00 Metoprolol Tartrate (Lopressor) 12.5 mg BID NGT Last administered on 02/24/17 10:54; Admin Dose 12.5 MG; Start 01/24/17 at 21:00; Status Future Hold Nystatin (Nystatin Susp) 5 ml Q6 PO Last administered on 03/11/17 05:56; Admin Dose 5 ML; Start 01/31/17 at 12:00 Lansoprazole (Prevacid) 30 mg DAILY@06 GTB Last administered on 03/11/17 05:56 ; Admin Dose 30 MG; Start 02/09/17 at 06:00 Multivitamins (Multivitamin) 30 ml DAILY GTB Last administered on 03/11/17 09: 27; Admin Dose 30 ML; Start 02/14/17 at 16:30 Docusate Sodium (Colace Liquid Cup) 100 mg BID GTB Last administered on 09:27; Admin Dose 100 MG; Start 02/14/17 at 21:00 Amiodarone HCl (Cordarone) 200 mg DAILY GTB Last administered on 03/11/17 09: 27; Admin Dose 200 MG; Start 02/19/17 at 09:00 Ascorbic Acid (Vitamin C) 500 mg DAILY GTB Last administered on 03/11/17 09:27 ; Admin Dose 500 MG; Start 02/22/17 at 09:00 Insulin Glargine (Lantus) 56 unit DAILY@20 SC Last administered on 03/10/17 20 :51; Admin Dose 56 UNIT; Start 02/22/17 at 20:00 Metoclopramide HCl (Reglan) 5 mg Q6 IV Last administered on 03/11/17 05:56; Admin Dose 5 MG; Start 02/23/17 at 18:00 Apixaban 2.5 mg 2.5 mg BID GTB Last administered on 03/11/17 09:27; Admin Dose 2.5 MG; Start 03/03/17 at 21:00 Cefepime HCl/ Sodium Chloride (Maxipime/NS) 50 ml @ 100 mls/hr Q12 IVPB Last administered on 03/11/17 09:26; Admin Dose 100 MLS/HR; Start 03/04/17 at 12:00 Epoetin Kyler 6000 units 6,000 units MoWeFr@17 SC Last administered on 16:57; Admin Dose 6,000 UNITS; Start 03/07/17 at 17:00 Colistimethate Sodium 100 mg/ Sodium Chloride 100 ml @ 200 mls/hr Q24H IVPB Last administered on 03/10/17 22:20; Admin Dose 200 MLS/HR; Start 03/06/17 at 21:00 Potassium Chloride/Dextrose/ Sod Cl (D5-1/2ns + KCl 20 Meq) 1,000 ml @ 50 mls/ hr Q20H IV Last administered on 03/11/17 01:17; Admin Dose 50 MLS/HR; Start at 13:00 Sodium Hypochlorite (Dakin'S (Dilute 1/40%)) 1 applic DAILY IRR Last administered on 03/11/17 09:27; Admin Dose 1 APPLIC; Start 03/09/17 at 09:00 Fluconazole (Diflucan) 100 mg DAILY GTB Last administered on 03/10/17 09:47; Admin Dose 100 MG; Start 03/10/17 at 10:00 Insulin Aspart (Novolog Insulin Pen) NOVOLOG *MODERATE* ALGORI... Q6 SC ; Start 03/11/17 at 12:00 TASHIA MCGARRY MD Mar 11, 2017 12:44
[2017-03-11] MEDS: FLUCONAZOLE 100 MG TAB GTB SCH (12:56)
--- NOTE | 2017-03-11 13:27 | CONS ---
Date/Time of Note Date/Time of Note DATE: 03/11/17 TIME: 13:24 Assessment/Plan Assessment/Plan Chief Complaint/Hosp Course IMPRESSION: 1. Atrial fibrillation-Having episodes of PAF with reasonable rate control. Currently remains in SR. Had pause approximately 4 during suctioning. No recurrent pause since holding of BB 2. Hypotension-overall improved and stable 3. Abnormal electrocardiogram with inferolateral T-wave inversions. 4. Respiratory failure-s/p trach placement 5. Nonhealing toe ulceration-vascular following 6. Peripheral arterial disease by arterial ultrasound of the lower extremities this admission. 7. Diabetes mellitus. 8. Fevers. 9. Positive troponin-downtrended 10.Bradycardia-improved/stable 11.-severe by echo 12.Cardiomyopathy-EF 40-45% by echo/36% by stress with no ischemia but positive scar. EF <30% by echo post arrest 13.Encephalopathy-anoxic 14. s/p cardiopulmonary arrest 01/08 15. Pre-op-for debridement of decubitis ulcer- Patient at this time has no definite cardiac contraindication to proceeding to OR for debridement but is at high risk for CV complications. Now post-op s/p debridement without complications day#2 16. Hypernatremia Recc: -Tele -serial ecg -HD for volume removal as tolerated and follow na closely -Continue PO amio in attempt to maintain SR, daily and follow for any recurrent pauses -Will hold on afterload reduction given severe and thus fixed afterload at valve orifice -Continue to hold BB and follow for recurrent pause -Contineu eliquis Problems: Consultation Date/Type/Reason Admit Date/Time Dec 02, 2016 at 21:01 Initial Consult Date 12/03/16 Type of Consultation: cardiology Reason for Consultation PAF//Cardiomyopathy Referring Provider: VIET PARKER MD Exam/Review of Systems Vital Signs Vitals Vital Signs Date Time Temp Pulse Resp B/P Pulse Ox O2 Delivery O2 Flow Rate FiO2 03/11/17 12:48 92 03/11/17 11:10 25 99 30 03/11/17 11:10 98.2 102/51 03/08/17 19:20 Mechanical Ventilator Intake and Output 03/10/17 03/10/17 03/11/17 15:00 23:00 07:00 Intake Total 700 ml 999 ml Output Total 350 ml 450 ml 1 ml Balance -350 ml 250 ml 998 ml Exam Review of Systems: CONSTITUTIONAL: No fevers, chills. PULMONARY: trached CARDIOVASCULAR: No obvious chest pain/palpitations GASTROINTESTINAL: No nausea/vomiting. GENITOURINARY: No hematuria/dysuria. MUSCULOSKELETAL: No obvious myagias/arthalgias. PSYCHIATRIC: The patient denies depression. NEUROLOGIC: encephalopathic Constitutional: other (encephalopathic) Psych: no complaints ENMT: mucosa pink and moist Neck: other (trached) Respiratory: diminished breath sounds (at bases/BV) Cardiovascular: regular rate and rhythm Gastrointestinal: non-tender, soft Musculoskeletal: muscle weakness (generalized) Extremities: edema (none) Neurological: other (Encephalopathy) Results Result Diagram: 03/10/17 0656 03/10/17 0656 Results 24 hrs Laboratory Tests Test 03/10/17 17:47 03/10/17 20:37 03/11/17 01:19 03/11/17 05:53 Bedside Glucose 125 142 124 102 Test 03/11/17 12:47 Bedside Glucose 122 Medications Medications Current Medications Ondansetron HCl (Zofran Inj) 4 mg Q6H PRN IV NAUSEA AND/OR VOMITING Last administered on 02/23/17 12:49; Admin Dose 4 MG; Start 12/02/16 at 22:30 Miscellaneous Information 1 ea NOTE XX ; Start 12/02/16 at 23:00 Glucose (Glutose) 15 gm Q15M PRN PO DECREASED GLUCOSE; Start 12/02/16 at 23:00 Glucose (Glutose) 22.5 gm Q15M PRN PO DECREASED GLUCOSE; Start 12/02/16 at 23: 00 Dextrose (D50w Syringe) 25 ml Q15M PRN IV DECREASED GLUCOSE Last administered on 03/08/17 05:34; Admin Dose 25 ML; Start 12/02/16 at 23:00 Dextrose (D50w Syringe) 50 ml Q15M PRN IV DECREASED GLUCOSE Last administered on 03/08/17 13:59; Admin Dose 50 ML; Start 12/02/16 at 23:00 Glucagon (Glucagen) 1 mg Q15M PRN IM DECREASED GLUCOSE; Start 12/02/16 at 23:00 Glucose (Glutose) 15 gm Q15M PRN BUCCAL DECREASED GLUCOSE; Start 12/02/16 at 23 :00 Acetaminophen (Tylenol Supp) 650 mg Q6H PRN NE ELEVATED TEMPERATURE Last administered on 01/13/17 20:32; Admin Dose 650 MG; Start 12/09/16 at 17:00 Hydralazine HCl (Apresoline) 10 mg Q6H PRN IV SBP>150mm hg Last administered on 12/19/16 08:50; Admin Dose 10 MG; Start 12/11/16 at 10:30 Morphine Sulfate (morphine) 2 mg Q2H PRN IV PAIN LEVEL 4-7; Start 12/13/16 at 10 :00 Collagenase (Santyl) 1 applic DAILY TOP Last administered on 03/11/17 09:29; Admin Dose 1 APPLIC; Start 01/04/17 at 09:00 Metoprolol Tartrate (Lopressor) 5 mg Q4 PRN IV FOR H.R>110; Start 01/12/17 at 17:30 Acetaminophen (Tylenol Liquid) 650 mg Q6H PRN NGT PAIN AND OR ELEVATED TEMP Last administered on 03/06/17 21:32; Admin Dose 650 MG; Start 01/13/17 at 23:30 Acetaminophen/ Hydrocodone Bitart ([place] (5/325)) 1 tab Q6H PRN NGT PAIN LEVEL 4-7; Start 01/13/17 at 23:30 Levetiracetam (Keppra Liquid) 1,000 mg DAILY NGT Last administered on 09:27; Admin Dose 1,000 MG; Start 01/14/17 at 09:00 Meclizine HCl (Antivert) 25 mg TID PRN NGT dizziness; Start 01/13/17 at 20:00 Zolpidem Tartrate (Ambien) 5 mg HS PRN NGT INSOMNIA; Start 01/13/17 at 20:00 Metoprolol Tartrate (Lopressor) 12.5 mg BID NGT Last administered on 02/24/17 10:54; Admin Dose 12.5 MG; Start 01/24/17 at 21:00; Status Future Hold Nystatin (Nystatin Susp) 5 ml Q6 PO Last administered on 03/11/17 12:48; Admin Dose 5 ML; Start 01/31/17 at 12:00 Lansoprazole (Prevacid) 30 mg DAILY@06 GTB Last administered on 03/11/17 05:56 ; Admin Dose 30 MG; Start 02/09/17 at 06:00 Multivitamins (Multivitamin) 30 ml DAILY GTB Last administered on 03/11/17 09: 27; Admin Dose 30 ML; Start 02/14/17 at 16:30 Docusate Sodium (Colace Liquid Cup) 100 mg BID GTB Last administered on 09:27; Admin Dose 100 MG; Start 02/14/17 at 21:00 Amiodarone HCl (Cordarone) 200 mg DAILY GTB Last administered on 03/11/17 09: 27; Admin Dose 200 MG; Start 02/19/17 at 09:00 Ascorbic Acid (Vitamin C) 500 mg DAILY GTB Last administered on 03/11/17 09:27 ; Admin Dose 500 MG; Start 02/22/17 at 09:00 Insulin Glargine (Lantus) 56 unit DAILY@20 SC Last administered on 03/10/17 20 :51; Admin Dose 56 UNIT; Start 02/22/17 at 20:00 Metoclopramide HCl (Reglan) 5 mg Q6 IV Last administered on 03/11/17 12:48; Admin Dose 5 MG; Start 02/23/17 at 18:00 Apixaban 2.5 mg 2.5 mg BID GTB Last administered on 03/11/17 09:27; Admin Dose 2.5 MG; Start 03/03/17 at 21:00 Cefepime HCl/ Sodium Chloride (Maxipime/NS) 50 ml @ 100 mls/hr Q12 IVPB Last administered on 03/11/17 09:26; Admin Dose 100 MLS/HR; Start 03/04/17 at 12:00 Epoetin Kyler 6000 units 6,000 units MoWeFr@17 SC Last administered on 16:57; Admin Dose 6,000 UNITS; Start 03/07/17 at 17:00 Colistimethate Sodium 100 mg/ Sodium Chloride 100 ml @ 200 mls/hr Q24H IVPB Last administered on 03/10/17 22:20; Admin Dose 200 MLS/HR; Start 03/06/17 at 21:00 Potassium Chloride/Dextrose/ Sod Cl (D5-1/2ns + KCl 20 Meq) 1,000 ml @ 50 mls/ hr Q20H IV Last administered on 03/11/17 01:17; Admin Dose 50 MLS/HR; Start at 13:00 Sodium Hypochlorite (Dakin'S (Dilute 1/40%)) 1 applic DAILY IRR Last administered on 03/11/17 09:27; Admin Dose 1 APPLIC; Start 03/09/17 at 09:00 Fluconazole (Diflucan) 100 mg DAILY GTB Last administered on 03/11/17 12:56; Admin Dose 100 MG; Start 03/10/17 at 10:00 Insulin Aspart (Novolog Insulin Pen) NOVOLOG *MODERATE* ALGORI... Q6 SC ; Start 03/11/17 at 12:00 VICENTE LESLIE Mar 11, 2017 13:27
[2017-03-12] MEDS ORDERED: ACCU-CHEK XX SCH (02:00)
== END 2017-03-11 18:01 | DRG 3 ==
LOC: FTE 16:31 → PP2 21:01 → ICU 12-09 09:07 → TEL 12-11 16:43 → ICU 12-13 06:54 → MS4 12-21 18:37 → MS2 12-31 20:18 → ICU 01-08 02:30 → TEL 02-07 17:05
PROVIDERS: ADMIT Internal Medicine; ATTEND Internal Medicine
PROC: 0BH17EZ Insertion of Endotracheal Airway into Trachea, Via Natural or Artificial Opening (ICD-10-PCS; 2016-12-09)
PROC: 06HM33Z Insertion of Infusion Device into Right Femoral Vein, Percutaneous Approach (ICD-10-PCS; 2016-12-09)
PROC: 5A1945Z Respiratory Ventilation, 24-96 Consecutive Hours (ICD-10-PCS; 2016-12-09)
PROC: 5A1D60Z (ICD-10-PCS; 2016-12-11)
PROC: 5A1955Z Respiratory Ventilation, Greater than 96 Consecutive Hours (ICD-10-PCS; 2016-12-13)
PROC: 0BH17EZ Insertion of Endotracheal Airway into Trachea, Via Natural or Artificial Opening (ICD-10-PCS; 2016-12-13)
PROC: 02H633Z Insertion of Infusion Device into Right Atrium, Percutaneous Approach (ICD-10-PCS; 2016-12-13)
PROC: 30233N1 Transfusion of Nonautologous Red Blood Cells into Peripheral Vein, Percutaneous Approach (ICD-10-PCS; 2016-12-15)
PROC: 0W993ZZ Drainage of Right Pleural Cavity, Percutaneous Approach (ICD-10-PCS; 2016-12-16)
PROC: 05HM33Z Insertion of Infusion Device into Right Internal Jugular Vein, Percutaneous Approach (ICD-10-PCS; 2016-12-27)
PROC: 5A1955Z Respiratory Ventilation, Greater than 96 Consecutive Hours (ICD-10-PCS; 2017-01-08)
PROC: 0B110F4 Bypass Trachea to Cutaneous with Tracheostomy Device, Open Approach (ICD-10-PCS; principal; 2017-01-23 12:00)
PROC: 30233K1 Transfusion of Nonautologous Frozen Plasma into Peripheral Vein, Percutaneous Approach (ICD-10-PCS; 2017-01-24)
PROC: 02H633Z Insertion of Infusion Device into Right Atrium, Percutaneous Approach (ICD-10-PCS; 2017-01-27)
PROC: 0DH63UZ Insertion of Feeding Device into Stomach, Percutaneous Approach (ICD-10-PCS; 2017-02-08)
PROC: 0JB70ZZ Excision of Back Subcutaneous Tissue and Fascia, Open Approach (ICD-10-PCS; 2017-03-08)
DX: E11.621 Type 2 diabetes mellitus with foot ulcer (principal); N17.0 Acute kidney failure with tubular necrosis; R65.20 Severe sepsis without septic shock; J69.0 Pneumonitis due to inhalation of food and vomit; G92 Toxic encephalopathy; G93.1 Anoxic brain damage, not elsewhere classified; I13.2 Hypertensive heart and chronic kidney disease with heart failure and with stage 5 chronic kidney disease, or end stage renal disease; J81.1 Chronic pulmonary edema; J96.01 Acute respiratory failure with hypoxia; J96.02 Acute respiratory failure with hypercapnia; I46.9 Cardiac arrest, cause unspecified; B37.7 Candidal sepsis; M86.9 Osteomyelitis, unspecified; I50.30 Unspecified diastolic (congestive) heart failure; D62 Acute posthemorrhagic anemia; L89.154 Pressure ulcer of sacral region, stage 4; E11.69 Type 2 diabetes mellitus with other specified complication; L89.150 Pressure ulcer of sacral region, unstageable; L89.210 Pressure ulcer of right hip, unstageable; L89.220 Pressure ulcer of left hip, unstageable; L89.620 Pressure ulcer of left heel, unstageable; L89.610 Pressure ulcer of right heel, unstageable; R34 Anuria and oliguria; I48.91 Unspecified atrial fibrillation; E87.70 Fluid overload, unspecified; L89.520 Pressure ulcer of left ankle, unstageable; Z79.4 Long term (current) use of insulin; F17.200 Nicotine dependence, unspecified, uncomplicated; N14.1 Nephropathy induced by other drugs, medicaments and biological substances; T36.8X5A Adverse effect of other systemic antibiotics, initial encounter; Y92.239 Unspecified place in hospital as the place of occurrence of the external cause; E11.628 Type 2 diabetes mellitus with other skin complications; L03.032 Cellulitis of left toe; L97.522 Non-pressure chronic ulcer of other part of left foot with fat layer exposed; I35.0 Nonrheumatic aortic (valve) stenosis; I70.245 Atherosclerosis of native arteries of left leg with ulceration of other part of foot; I70.201 Unspecified atherosclerosis of native arteries of extremities, right leg; I63.9 Cerebral infarction, unspecified; R29.712 NIHSS score 12; N30.90 Cystitis, unspecified without hematuria; B96.4 Proteus (mirabilis) (morganii) as the cause of diseases classified elsewhere; Z16.24 Resistance to multiple antibiotics; J40 Bronchitis, not specified as acute or chronic; N18.6 End stage renal disease; Z99.2 Dependence on renal dialysis; R13.10 Dysphagia, unspecified; B96.5 Pseudomonas (aeruginosa) (mallei) (pseudomallei) as the cause of diseases classified elsewhere; B96.1 Klebsiella pneumoniae [K. pneumoniae] as the cause of diseases classified elsewhere; R31.0 Gross hematuria; R00.1 Bradycardia, unspecified
CPT/HCPCS: 31500; 32555; 36430; 36558; 36569; 36600; 70450; 70490; 71010; 71250; 73718; 74000; 74176; 76604; 76775; 76937; 78315; 78452; 80048; 80053; 80061; 80076; 80202; 81000; 81001; 81003; 81005; 82270; 82550; 82553; 82565; 82570; 82803; 82962; 83036; 83540; 83605; 83735; 83880; 84100; 84145; 84300; 84443; 84484; 84520; 84560; 85014; 85018; 85025; 85335; 85610; 85651; 85730; 86480; 86644; 86692; 86703; 86704; 86706; 86709; 86803; 86850; 86900; 86901; 86920; 87040; 87070; 87075; 87081; 87086; 87340; 88304; 89190; 89220; 90935; 92526; 92610; 92950; 93005; 93017; 93306; 93308; 93922; 93923; 93970; 93971; 94002; 94003; 94640; 94660; 94664; 94770; 95819; 96365; 96366; 96372; 96375; 97110; 97116; 97162; 97530; A9503; A4310; A9500; A9505; C1769; C9113; J0171; J0360; J0461; J0692; J0696; J0886; J1450; J1644; J1650; J1815; J2060; J2185; J2250; J2270; J2310; J2370; J2405; J2543; J2597; J2765; J2785; J2997; J3010; J3260; J3370; J3480; J7030; J7040; J7042; J7050; J7060; J7999; P9016; P9047; P9059